=== PATIENT | female | born 1940 | race Caucasian/White ===

== ENCOUNTER 2019-02-07 23:45 | Inpatient (IN) | payer MEDICARE, MEDICAID ==
[~2019-02-07] VITALS: Ht 172.7 cm; Wt 79.4 kg
[2019-02-07 23:50] VITALS: BP 106/59
[2019-02-07] MEDS ORDERED: SYNTHROID150 MCG ORAL (23:54)
[2019-02-07] MEDS ORDERED: AMANTADINE100 M2 ORAL (23:54)
[2019-02-07] MEDS ORDERED: ASPIRIN EC325 MG ORAL (23:54)
[2019-02-07] MEDS ORDERED: IPRATROPIUM BROM5 GM MC (23:54)
[2019-02-07] MEDS ORDERED: CRANBERRY450 M4 PO (23:54)
[2019-02-07] MEDS ORDERED: LOVENOX10 M4 SUBQ (23:54)
[2019-02-07] MEDS ORDERED: ONDANSETRON ODT4 MG BC (23:54)
[2019-02-07] MEDS ORDERED: DEPAKOTE125 MG PO (23:54)
[2019-02-07] MEDS ORDERED: ATORVASTATIN CA10 MG ORAL (23:54)
[2019-02-07] MEDS ORDERED: ROBITUSSIN100 MG/52 ORAL (23:54)
[2019-02-07] MEDS ORDERED: CATAPRES0.1 MG ORAL (23:54)
[2019-02-07] MEDS ORDERED: NITROSTAT0.4 M2 SL (23:54)
[2019-02-07] MEDS ORDERED: PEPCID AC20 M2 PO (23:54)
[2019-02-07] MEDS ORDERED: COLACE100 MG ORAL (23:54)
[2019-02-07] MEDS ORDERED: FLEET ENEMA133 ML RECTAL (23:54)
[2019-02-07] MEDS ORDERED: VITAMIN D35000 UNIT PO (23:54)
[2019-02-07] MEDS ORDERED: TYLENOL EXTRA500 MG ORAL (23:54)
[2019-02-07] MEDS ORDERED: ZYPREXA10 MG ORAL (23:54)
[2019-02-07] MEDS ORDERED: DULCOLAX10 MG RC (23:54)
[2019-02-07] MEDS ORDERED: MILK OF MA400 MG/51 ORAL (23:54)
[2019-02-07 23:59] LABS: BASOPHILS % (AUTO) 1.1 % (0.0-2.0); EOSINOPHILS % (AUTO) 1.9 % (0.0-3.0); HEMOGLOBIN 11.9 G/DL (12.0-16.0); LYMPHOCYTES % (AUTO) 29.1 % (20.0-45.0); MEAN CORPUSCULAR VOLUME 93 FL (80-99); MONOCYTES % (AUTO) 6.7 % (1.0-10.0); NEUTROPHILS % (AUTO) 61.2 % (45.0-75.0); PLATELET COUNT 221 K/UL (150-450); RED BLOOD COUNT 3.76 M/UL (4.20-5.40); RED CELL DISTRIBUTION WIDTH 12.1 % (11.6-14.8); WHITE BLOOD COUNT 7.7 K/UL (4.8-10.8)
[2019-02-08] MEDS ORDERED: DiphenhydrAMINE 50mg/ml Inj IVP ONE
[2019-02-08 00:13] LABS: ANION GAP 6 mmol/L (5-15); BLOOD UREA NITROGEN 14 mg/dL (7-18); CALCIUM 8.4 MG/DL (8.5-10.1); CARBON DIOXIDE 30 MMOL/L (21-32); CHLORIDE 92 MMOL/L (98-107); POTASSIUM 4.2 MMOL/L (3.5-5.1); SODIUM 128 MMOL/L (136-145)
[2019-02-08] MEDS: Albuterol ud Inhalation HHN SCH ×2 (00:15→00:16)
[2019-02-08] MEDS ORDERED: LORazepam Inj 2mg/ml 1ml IV ONE (00:15)
[2019-02-08] MEDS: Ipratropium 0.02% Inh Soln 2.5ml UD HHN SCH ×2 (00:15→00:16)
[2019-02-08 00:28] LABS: ALANINE AMINOTRANSFERASE 61 U/L (12-78); ALBUMIN/GLOBULIN RATIO 1.3 (1.0-2.7); ALKALINE PHOSPHATASE 54 U/L (46-116); ASPARTATE AMINO TRANSFERASE 58 U/L (15-37); BILIRUBIN,TOTAL 0.8 MG/DL (0.2-1.0); CKMB 23.8 NG/ML (0.0-3.6); CREATINE KINASE 963 U/L (26-308)
[2019-02-08 00:29] LABS: APPEARANCE,URINE CLEAR; BILIRUBIN, URINE NEGATIVE (NEGATIVE); GLUCOSE, URINE (UA) NEGATIVE (NEGATIVE); KETONES,URINE NEGATIVE (NEGATIVE); LEUKOCYTE ESTERASE ,URINE NEGATIVE (NEGATIVE); NITRITE,URINE NEGATIVE (NEGATIVE); PH,URINE 6 (4.5-8.0); PROTEIN,URINE 3+ (NEGATIVE); UROBILINOGEN,URINE NORMAL MG/DL (0.0-1.0)
[2019-02-08 00:30] LABS: COLOR,URINE YELLOW
--- NOTE | 2019-02-08 00:31 | Emergency Room Report ---
History of Present Illness General Chief Complaint: Dyspnea/Respdistress Source: Medical Record Present Illness HPI 78-year-old female presents with acute shortness of breath just prior to arrival , patient was seen at the group home yelling I cannot breathe I cannot breathe , she has a history of COPD, history is limited due to patient's acute shortness of breath, patient is not answering questions, unknown aggravating or alleviating factors, severity is severe, onset was just prior to arrival. Allergies: Coded Allergies: LITHIUM (Verified Allergy, Unknown, 02/07/19) Patient History Limited by: medical condition - Acute shortness of breath Past Medical History: see triage record Last Menstrual Period: n/a Reviewed Nursing Documentation: PMH: Agreed; PSxH: Agreed Nursing Documentation-PMH Past Medical History: No History, Except For Hx Cardiac Problems: Yes - Hyperlipidemia, Hypothyroidism, Parkinson'sm Hypocalcemia, Hx COPD: Yes - COPD Hx Gastrointestinal Problems: Yes - GeRD Review of Systems All Other Systems: limited - Acute shortness of breath Physical Exam Vital Signs Date Time Temp Pulse Resp B/P (MAP) Pulse Ox O2 Delivery O2 Flow Rate FiO2 02/07/19 23:37 97.7 52 18 106/59 (75) 95 Room Air 02/07/19 23:56 4.0 36 Sp02 EP Interpretation: reviewed, normal General Appearance: alert, moderate distress Head: normocephalic, atraumatic Eyes: bilateral eye PERRL, bilateral eye EOMI ENT: uvula midline, moist mucus membranes Neck: supple, thyroid normal, supple/symm/no masses Respiratory: respiratory distress, decreased breath sounds, accessory muscle use, wheezing Cardiovascular #1: normal peripheral pulses, regular rate, rhythm, no edema, no gallop, no murmur Gastrointestinal: non tender, soft, no guarding, no rebound Musculoskeletal: normal inspection Neurologic: alert, responsive Psychiatric: mood/affect normal Skin: no rash, warm/dry Procedures Critical Care Time Critical Care Time Given the critical condition in which the patient arrived, the patient was immediately assessed by myself and the nurse, and cardiac monitoring initiated due to the potential for rapid decompensation of the patient's clinical condition. During the course of the patient's stay, I spent a considerable amount of time at the bedside performing serial re-evaluations of the patient's hemodynamic and clinical status because of the recognized potential threat to life or limb in this condition. I then had a chance to review not only all of the available current laboratory and radiographic studies obtained today, but I also reviewed old records available to me at the time. Additionally, any ancillary information available including assurance associate records were reviewed. Sequential vital signs were obtained. Critical Care time of 39 minutes was performed exclusive of billable procedures. Medical Decision Making Diagnostic Impression: Primary Impression: Respiratory distress Additional Impressions: Pneumonia Qualified Codes: J18.1 - Lobar pneumonia, unspecified organism COPD exacerbation ER Course 78-year-old female presented with acute shortness of breath, concerning for ACS versus sepsis versus pneumonia Versus COPD exacerbation Patient given duo nebs emergently, patient felt better with DuoNeb's, labs drawn , a box given for possible sepsis, patient found to have bilateral pneumonia Patient given steroids Reevaluation 12:56 AM, patient more comfortable Admitted to Dr. Gramajo at 1:08AM Laboratory Tests Test 02/07/19 23:48 02/08/19 00:15 02/08/19 01:00 White Blood Count 7.7 K/UL (4.8-10.8) Red Blood Count 3.76 M/UL (4.20-5.40) L Hemoglobin 11.9 G/DL (12.0-16.0) L Hematocrit 35.0 % (37.0-47.0) L Mean Corpuscular Volume 93 FL (80-99) Mean Corpuscular Hemoglobin 31.7 PG (27.0-31.0) H Mean Corpuscular Hemoglobin Concent 34.1 G/DL (32.0-36.0) Red Cell Distribution Width 12.1 % (11.6-14.8) Platelet Count 221 K/UL (150-450) Mean Platelet Volume 6.5 FL (6.5-10.1) Neutrophils (%) (Auto) 61.2 % (45.0-75.0) Lymphocytes (%) (Auto) 29.1 % (20.0-45.0) Monocytes (%) (Auto) 6.7 % (1.0-10.0) Eosinophils (%) (Auto) 1.9 % (0.0-3.0) Basophils (%) (Auto) 1.1 % (0.0-2.0) Prothrombin Time 10.6 SEC (9.30-11.50) Prothrombin Time INR 1.0 (0.9-1.1) PTT 32 SEC (23-33) Sodium Level 128 MMOL/L (136-145) L Potassium Level 4.2 MMOL/L (3.5-5.1) Chloride Level 92 MMOL/L (98-107) L Carbon Dioxide Level 30 MMOL/L (21-32) Anion Gap 6 mmol/L (5-15) Blood Urea Nitrogen 14 mg/dL (7-18) Creatinine 1.0 MG/DL (0.55-1.30) Estimate Glomerular Filtration Rate mL/min (>60) Glucose Level 109 MG/DL (74-106) H Lactic Acid Level 1.00 mmol/L (0.4-2.0) Calcium Level 8.4 MG/DL (8.5-10.1) L Total Bilirubin 0.8 MG/DL (0.2-1.0) Aspartate Amino Transferase (AST) 58 U/L (15-37) H Alanine Aminotransferase (ALT) 61 U/L (12-78) Alkaline Phosphatase 54 U/L (46-116) Total Creatine Kinase 963 U/L (26-308) H Creatine Kinase MB 23.8 NG/ML (0.0-3.6) H Creatine Kinase MB Relative Index 2.4 Troponin I 0.000 ng/mL (0.000-0.056) Pro-B-Type Natriuretic Peptide 2327 pg/mL (0-125) H Total Protein 7.0 G/DL (6.4-8.2) Albumin 4.0 G/DL (3.4-5.0) Globulin 3.0 g/dL Albumin/Globulin Ratio 1.3 (1.0-2.7) Lipase 131 U/L (73-393) Urine Color Yellow Urine Appearance Clear Urine pH 6 (4.5-8.0) Urine Specific [place] 1.020 (1.005-1.035) Urine Protein 3+ (NEGATIVE) H Urine Glucose (UA) Negative (NEGATIVE) Urine Ketones Negative (NEGATIVE) Urine Blood 2+ (NEGATIVE) H Urine Nitrite Negative (NEGATIVE) Urine Bilirubin Negative (NEGATIVE) Urine Urobilinogen Normal MG/DL (0.0-1.0) Urine Leukocyte Esterase Negative (NEGATIVE) Urine RBC 2-4 /HPF (0 - 2) H Urine WBC 0-2 /HPF (0 - 2) Urine Squamous Epithelial Cells Few /LPF (NONE/OCC) Urine Bacteria None /HPF (NONE) Arterial Blood pH 7.323 (7.350-7.450) Arterial Blood Partial Pressure CO2 52.2 mmHg (35.0-45.0) H Arterial Blood Partial Pressure O2 81.1 mmHg (75.0-100.0) Arterial Blood HCO3 26.5 mmol/L (22.0-26.0) H Arterial Blood Oxygen Saturation 94.6 % (95-100) L Arterial Blood Base Excess -0.2 (-2-2) Raphael Test Positive EKG Diagnostic Results EKG Time: 23:53 EP Interpretation: NSR, rate 63, QTc 460, no acute ST elevations, normal axis Rate: normal Rhythm: NSR ST Segments: no acute changes Rhythm Strip Diag. Results Rhythm Strip Time: 00:32 EP Interpretation: yes Rate: 70 Rhythm: NSR, no PVC's, no ectopy Chest X-Ray Diagnostic Results Chest X-Ray Diagnostic Results : Chest X-Ray Ordered: Yes # of Views/Limited/Complete: 1 View Indication: Shortness of Breath EP Interpretation: Yes Interpretation: other - Bilateral infiltrates seen Impression: Other - Bilateral lower lobe pneumonias Electronically Signed by: Mario Barnes MD Last Vital Signs Date Time Temp Pulse Resp B/P (MAP) Pulse Ox O2 Delivery O2 Flow Rate FiO2 02/08/19 00:17 77 18 100 02/08/19 00:07 Nasal Cannula 4.0 36 02/07/19 23:37 97.7 106/59 (75) Disposition: ADMITTED INPATIENT Condition: Serious Mario Barnes MD Feb 08, 2019 00:31
[2019-02-08] MEDS ORDERED: Vancomycin 1.5 GM in NS 275 ML IVPB ONE (00:45)
[2019-02-08] MEDS ORDERED: Cefepime HCl 2 GM in D5W 55 ML IVPB ONE (00:45)
[2019-02-08] MEDS ORDERED: Dexamethasone 4mg/ml vial IVP ONE (00:45)
[2019-02-08] MEDS ORDERED: Vancomycin 1.5gm/D5W Premix 275 ML IVPB ONE (00:45)
[2019-02-08 01:16] VITALS: BP 146/62
[2019-02-08 01:59] VITALS: BP 136/58
[2019-02-08 02:10] VITALS: BP 134/70
[2019-02-08] MEDS ORDERED: Acetaminophen 500mg (ES) tab ORAL PRN (03:15)
[2019-02-08] MEDS ORDERED: Nitroglycerin Subl 0.4mg tab SL PRN (03:15)
[2019-02-08] MEDS ORDERED: guaiFENesin 100mg/5ml Liq ud ORAL PRN (03:15)
[2019-02-08 04:00] VITALS: BP 127/53
[2019-02-08] MEDS: Albuterol/Ipratropium 3ml neb HHN SCH ×3 (07:53→19:53)
[2019-02-08 08:00] VITALS: BP 136/55
[2019-02-08] MEDS ORDERED: Docusate 100mg cap ORAL SCH (09:00)
[2019-02-08] MEDS ORDERED: Enoxaparin 40mg Inj SUBQ SCH (09:00)
[2019-02-08] MEDS ORDERED: Milk of Magnesia 30ml Ud ORAL SCH (09:00)
[2019-02-08] MEDS ORDERED: Aspirin EC 325mg tab ORAL SCH (09:00)
[2019-02-08] MEDS ORDERED: OLANZapine 10mg tab ORAL SCH (09:00)
[2019-02-08] MEDS ORDERED: cefTRIAXone 1 GM in D5W 55 ML IVPB SCH (09:00)
[2019-02-08] MEDS ORDERED: Fleet's Enema 133ml RECTAL PRN (09:00)
[2019-02-08] MEDS: Amantadine 100mg cap ORAL SCH ×2 (09:44→18:17)
[2019-02-08] MEDS: Heparin 5000 units/ml inj SUBQ SCH ×2 (09:46→20:54)
--- NOTE | 2019-02-08 12:19 | Diagnostic Imaging Report ---
Indication: Chest pain Technique: One view of the chest Comparison: none Findings: The heart is enlarged. There is mild bilateral interstitial edema. No focal airspace consolidation. The pleural spaces are grossly clear. The aorta is tortuous ectatic and calcified. Impression: Cardiomegaly. Mild bilateral interstitial edema
[2019-02-08] MEDS ORDERED: D5NS 1,000 ML IV SCH (19:45)
[2019-02-08 20:00] VITALS: BP 143/66
[2019-02-08] MEDS ORDERED: DIVALPROEX SOD125 MG PO (20:50)
[2019-02-08] MEDS ORDERED: DUONEB 0.5-3(2.53 ML HHN (20:50)
[2019-02-08] MEDS ORDERED: NITROSTAT0.4 M1 SL (20:51)
[2019-02-08] MEDS ORDERED: ZOFRAN4 M3 ORAL (20:51)
[2019-02-08] MEDS ORDERED: MYLANTA PO (20:51)
[2019-02-08] MEDS ORDERED: Solu-MEDROL 125mg Inj IVP SCH (23:45)
--- NOTE | 2019-02-08 23:47 | History & Physical ---
History and Physical History & Physicial H&P dictated Matt Gramajo MD Feb 08, 2019 23:47
[2019-02-09] VITALS: BP 128/52
[2019-02-09] MEDS ORDERED: D5NS 1,000 ML IV SCH ×3 (00:30→19:45)
[2019-02-09] MEDS ORDERED: Nitroglycerin Subl 0.4mg tab SL PRN (01:15)
[2019-02-09] MEDS: D5NS 1,000 ML IV SCH ×2 (01:15→17:40)
--- NOTE | 2019-02-09 01:15 | History and Physical Report ---
DATE OF ADMISSION: 02/08/2019 CHIEF COMPLAINT: Patient with acute onset of shortness of breath. HISTORY OF PRESENT ILLNESS: History obtained from the chart. The patient is a poor historian. She has multiple medical problems and not a reliable patient due to a history of schizophrenia. She does have history of COPD and presented with complaint of acute shortness of breath. She was taken to emergency room and in the ER, she was given Lasix 40 mg IV and subsequently she felt better. No complaint of any chest pain and her cardiac enzymes were unremarkable. She did have a moderately elevated BNP. She has had occasional cough, which has been mostly productive and she has been on Rocephin since admission. PAST MEDICAL HISTORY: Significant for COPD, hypertension, Parkinson disease, cachexia, hyperlipidemia, gastroesophageal reflux disease, hypothyroidism, anemia, and schizophrenia. SOCIAL HISTORY: sn[facility] resident. Unemployed. ALLERGIES: No known drug allergies. MEDICATIONS: The patient is on the following medications. Atorvastatin 10 mg p.o. daily, amantadine 100 mg p.o. daily, aspirin 325 p.o. daily, Colace 100 mg p.o. daily, Pepcid 20 mg p.o. daily, milk of magnesia p.r.n., olanzapine 10 mg p.o. daily, and heparin 5000 units subcutaneous every 12 hours, which was started following admission. The patient is also on albuterol Atrovent every 6 hours since admission, Synthroid 150 mcg p.o. mouth daily, Dulcolax 10 mg p.o. daily p.r.n. constipation, clonidine 0.1 mg p.o. q.6 hours hours, Tylenol p.r.n., nitroglycerin p.r.n., Robitussin p.r.n., and Zofran p.r.n. She also was given vancomycin and cefepime in the emergency room and steroid, Decadron. FAMILY HISTORY: Noncontributory. REVIEW OF SYSTEMS: Limited, cannot be obtained given the patient's condition. PHYSICAL EXAMINATION: GENERAL: Obese female, in no acute distress. VITAL SIGNS: Temperature 97.7, pulse of 65, respiratory rate of 20, blood pressure 143/66, O2 saturation 99%. HEENT: Pupils equal, round, reactive. Conjunctivae clear. Oropharynx, posterior pharynx crowded. NECK: No JVD. Trachea midline. No thyromegaly. LYMPHATICS: No adenopathy. LUNGS: Rhonchi bilateral. Decreased breath sounds. No wheezing. CARDIOVASCULAR: Regular rate. S1, S2. ABDOMEN: Soft. Bowel sounds present. Cannot tell if she has any organomegaly given her obesity. EXTREMITIES: No edema, clubbing, or cyanosis. NEUROLOGIC: Alert. Normal speech. Follows commands. Cranial nerves II to XII grossly intact. Ambulation not tested, but from her history she has ataxia. Could not elicit reflex. RECTAL: Deferred. GENITAL: Deferred. SKIN: Intact. LABORATORY DATA: She has the following findings. Her UA is unremarkable. Her blood gas shows pH of 7.32, pCO2 of 52, pO2 of 51. Coags unremarkable. CBC shows WBC of 7.7, hemoglobin 11.9, platelet count of 221. On her chemistry, sodium is 128, potassium 4.2, chloride 92, bicarb of 30, BUN of 14, creatinine 1.0, glucose 109. Lactic acid 1. Calcium 8.4. AST is slightly elevated at 58, ALT of 61, alkaline phosphatase 54. CPK is 963, CK-MB of 23. Troponin was 0. BNP 2327. Albumin is 4, protein 7, and lipase 131. On her chest x-ray, it showed cardiomegaly, mild bibasilar interstitial edema. IMPRESSION: 1. Acute shortness of breath secondary to pulmonary edema. 2. COPD exacerbation. 3. Acute tracheobronchitis. 4. Hyponatremia. 5. Parkinson disease. 6. Hyperlipidemia. 7. Gastroesophageal reflux disease. 8. Hypothyroidism. 9. Mild anemia of chronic disease. 10. Schizophrenia. PLAN: The patient will be on Rocephin. We will diurese her and we will repeat her labs. She will be on bronchodilator and steroid and we will follow her labs and repeat chest x-ray. Matt Gramajo M.D. DR: MEGAN JOB#: [id number] CC:
[2019-02-09] MEDS ORDERED: guaiFENesin 100mg/5ml Liq ud ORAL PRN (03:15)
[2019-02-09] MEDS ORDERED: Acetaminophen 500mg (ES) tab ORAL PRN (03:15)
[2019-02-09 04:00] VITALS: BP 121/60
[2019-02-09] MEDS: Solu-MEDROL 125mg Inj IVP SCH ×3 (06:00→22:00)
[2019-02-09 06:36] LABS: HEMATOCRIT 41.1 % (37.0-47.0); HEMOGLOBIN 13.4 G/DL (12.0-16.0); MEAN CORPUSCULAR VOLUME 95 FL (80-99); PLATELET COUNT 206 K/UL (150-450); RED CELL DISTRIBUTION WIDTH 12.4 % (11.6-14.8); WHITE BLOOD COUNT 6.8 K/UL (4.8-10.8)
[2019-02-09 06:55] LABS: CREATINE KINASE 801 U/L (26-308)
[2019-02-09 06:56] LABS: ALANINE AMINOTRANSFERASE 51 U/L (12-78); ALBUMIN 3.8 G/DL (3.4-5.0); ALBUMIN/GLOBULIN RATIO 1.1 (1.0-2.7); ALKALINE PHOSPHATASE 54 U/L (46-116); ANION GAP 5 mmol/L (5-15); ASPARTATE AMINO TRANSFERASE 46 U/L (15-37); BILIRUBIN,TOTAL 0.6 MG/DL (0.2-1.0); BLOOD UREA NITROGEN 13 mg/dL (7-18); CALCIUM 8.6 MG/DL (8.5-10.1); CARBON DIOXIDE 32 MMOL/L (21-32); CHLORIDE 94 MMOL/L (98-107); CREATININE 1.1 MG/DL (0.55-1.30); POTASSIUM 4.2 MMOL/L (3.5-5.1); SODIUM 131 MMOL/L (136-145)
[2019-02-09] MEDS: Albuterol/Ipratropium 3ml neb HHN SCH ×3 (08:02→19:18)
[2019-02-09] MEDS ORDERED: cefTRIAXone 1 GM in D5W 55 ML IVPB SCH (09:00)
[2019-02-09] MEDS ORDERED: OLANZapine 10mg tab ORAL SCH (09:00)
[2019-02-09] MEDS: Milk of Magnesia 30ml Ud ORAL SCH (09:00)
[2019-02-09] MEDS ORDERED: Fleet's Enema 133ml RECTAL PRN (09:00)
[2019-02-09] MEDS: Aspirin EC 325mg tab ORAL SCH (09:00)
[2019-02-09] MEDS: Amantadine 100mg cap ORAL SCH ×2 (09:00→17:41)
[2019-02-09] MEDS: Heparin 5000 units/ml inj SUBQ SCH ×2 (09:00→21:00)
[2019-02-09] MEDS: Docusate 100mg cap ORAL SCH (09:00)
--- NOTE | 2019-02-09 13:36 | Diagnostic Imaging Report ---
Indication: Dyspnea Comparison: 02/07/2019 A single view chest radiograph was obtained. Findings: Prominent pulmonary vascularity and heart size are demonstrated. The interstitium is prominent but unchanged. Bones are unremarkable. IMPRESSION: Suspected mild CHF without change. Correlate clinically
[2019-02-09] MEDS ORDERED: Tubing IV Secondary IV ONE (18:37)
[2019-02-09] MEDS ORDERED: NS 275ml ONE (18:37)
[2019-02-09 20:00] VITALS: BP 123/50
[2019-02-09] MEDS ORDERED: OLANZapine 2.5mg tab ORAL SCH (21:00)
--- NOTE | 2019-02-09 22:38 | General Progress Note ---
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 Pulled her IV out and refuses meds. Psychiatry was consulted. Patient refuses PO. Will notify Dr. Hernandez. Assessment/Plan: Will change to po steroid. Subjective Date patient seen: Feb 09, 2019 ROS Limited/Unobtainable: Yes Constitutional: Reports: no symptoms HEENT: Reports: no symptoms Cardiovascular: Reports: no symptoms Respiratory: Reports: no symptoms Gastrointestinal/Abdominal: Reports: no symptoms Genitourinary: Reports: no symptoms Neurologic/Psychiatric: Reports: anxiety, emotional problems Endocrine: Reports: no symptoms Hematologic/Lymphatic: Reports: no symptoms Allergies: Coded Allergies: LITHIUM (Verified Allergy, Unknown, 02/07/19) Objective Last 24 Hour Vital Signs Date Time Temp Pulse Resp B/P (MAP) Pulse Ox O2 Delivery O2 Flow Rate FiO2 02/09/19 21:00 Nasal Cannula 1.0 Nasal Cannula 1.0 02/09/19 20:00 98.2 72 18 123/50 (74) 99 02/09/19 19:28 70 18 98 Room Air 21 68 18 94 02/09/19 19:17 94 Room Air 21 02/09/19 09:00 Nasal Cannula 1.0 Nasal Cannula 1.0 02/09/19 08:03 64 20 88 Room Air 21 8/30/19 08:02 88 Room Air 21 02/09/19 06:00 121/60 02/09/19 04:00 56 02/09/19 04:00 97.6 58 18 121/60 (80) 96 02/09/19 00:00 63 02/09/19 00:00 Nasal Cannula 1.0 Nasal Cannula 1.0 02/09/19 00:00 128/52 02/09/19 00:00 96.3 67 20 128/52 (77) 96 Intake and Output 02/08/19 02/09/19 19:00 07:00 Intake Total 413.333 ml Output Total 800 ml Balance -800 ml 413.333 ml Intake IV Total 413.333 ml Output Urine Total 800 ml # Voids 1 Laboratory Tests 02/09/19 05:20: White Blood Count 6.8, Red Blood Count 4.30, Hemoglobin 13.4, Hematocrit 41.1, Mean Corpuscular Volume 95, Mean Corpuscular Hemoglobin 31.1H, Mean Corpuscular Hemoglobin Concent 32.6, Red Cell Distribution Width 12.4, Platelet Count 206, Mean Platelet Volume 6.5, Neutrophils (%) (Auto) , Lymphocytes (%) (Auto) , Monocytes (%) (Auto) , Eosinophils (%) (Auto) , Basophils (%) (Auto) , Differential Total Cells Counted 100, Neutrophils % (Manual) 87H, Lymphocytes % (Manual) 11L, Monocytes % (Manual) 2, Eosinophils % (Manual) 0, Basophils % ( Manual) 0, Band Neutrophils 0, Platelet Estimate Adequate, Platelet Morphology Normal, Red Blood Cell Morphology Normal, Sodium Level 131L, Potassium Level 4.2 , Chloride Level 94L, Carbon Dioxide Level 32, Anion Gap 5, Blood Urea Nitrogen 13, Creatinine 1.1, Estimat Glomerular Filtration Rate , Glucose Level 124H, Calcium Level 8.6, Magnesium Level 2.2, Total Bilirubin 0.6, Aspartate Amino Transf (AST/SGOT) 46H, Alanine Aminotransferase (ALT/SGPT) 51, Alkaline Phosphatase 54, Total Creatine Kinase 801H, Pro-B-Type Natriuretic Peptide 1075H , Total Protein 7.4, Albumin 3.8, Globulin 3.6, Albumin/Globulin Ratio 1.1, Free Thyroxine < 0.10L Height (Feet): 5 Height (Inches): 8.00 Weight (Pounds): 175 General Appearance: alert, agitated EENT: PERRL/EOMI Neck: non-tender Cardiovascular: normal peripheral pulses Respiratory/Chest: chest wall non-tender, rhonchi - bilaterally Abdomen: normal bowel sounds, non tender Pelvis: normal external exam Genitourinary/Rectal: normal genital exam Extremities: normal range of motion Edema: trace edema Neurologic: inventory assistant II-XII grossly normal, no motor/sensory deficits, responsive Skin: normal pigmentation Lymphatic: normal anterior cervical (L), normal anterior cervical (R), normal posterior cervical (L), normal posterior cervical (R) Matt Gramajo MD Feb 09, 2019 22:38
[2019-02-09] MEDS: Haloperidol 5mg/ml Inj IM PRN (22:41)
[2019-02-09] MEDS: LORazepam Inj 2mg/ml 1ml IM PRN ×2 (22:42→22:44)
[2019-02-09] MEDS: DiphenhydrAMINE 50mg/ml Inj IM PRN ×2 (22:42→22:44)
[2019-02-10] VITALS: BP 128/50
[2019-02-10] MEDS ORDERED: Lidocaine 1% MPF 10mg/ml 5ml ONE
--- NOTE | 2019-02-10 00:15 | Consultation ---
DATE OF CONSULTATION: 02/09/2019 CONSULTING PHYSICIAN: Kiana Hernandez M.D. HISTORY OF PRESENT ILLNESS: The patient is a 78-year-old female with a history of multiple medical comorbidities including COPD, Parkinson disease, hyperlipidemia, GERD, hypothyroidism, and schizophrenia who has been admitted to the hospital for shortness of breath. The patient has been delusional, responding to internal stimuli. The patient is unable to understand, process, communicate, or appreciate the information given to her. The patient is a poor historian. The patient is agitated and refuses to take all her medications. She is refusing to wear her oxygen mask. The patient's mood is labile and attempted to leave in the morning. The patient is confused and disoriented. Unable to provide any history. PAST PSYCHIATRIC HISTORY: Significant for schizophrenia and dementia. PAST MEDICAL HISTORY: 1. COPD. 2. Hypertension. 3. Parkinson disease. 4. Cachexia. 5. Hyperlipidemia. 6. GERD. 7. Hypothyroidism. 8. Anemia. ALLERGIES:NKDA SUBSTANCE ABUSE HISTORY: No known history of illicit drug use or alcohol. MENTAL STATUS EXAMINATION: The patient is alert and oriented times self. She knows she is in the hospital. Mood is agitated. Affect is flat. Thought process, there is a paucity of thought content. Thought content, no suicidal or homicidal ideation. Cognition is impaired. Insight and judgment is impaired. ASSESSMENT: [place] I Schizophrenia. [place] II Deferred. [place] III As above. [place] IV Low. [place] V 20. PLAN: 1. We will change the Zyprexa to 5 mg at bedtime. Discontinue the day time Zyprexa 10 mg. 2. We will give the patient 2.5 mg of Zyprexa in the morning. The patient lacks capacity to make decision. Medication could be given to her in applesauce. The patient may not refuse medication as she lacks capacity to refuse medications or care. Kiana Hernandez M.D. DR: BRIDGER JOB#: [id number] CC: [place]
[2019-02-10] MEDS: Albuterol/Ipratropium 3ml neb HHN SCH ×4 (01:18→19:45)
[2019-02-10 04:00] VITALS: BP 122/61
[2019-02-10 08:00] VITALS: BP 141/51
[2019-02-10] MEDS: Heparin 5000 units/ml inj SUBQ SCH ×2 (09:00→21:00)
[2019-02-10] MEDS: Aspirin EC 325mg tab ORAL SCH (09:36)
[2019-02-10] MEDS: Docusate 100mg cap ORAL SCH (09:36)
[2019-02-10] MEDS: Milk of Magnesia 30ml Ud ORAL SCH (09:36)
[2019-02-10] MEDS: Amantadine 100mg cap ORAL SCH ×3 (09:37→17:52)
[2019-02-10] MEDS: OLANZapine 10mg tab ORAL SCH (09:37)
[2019-02-10 12:00] VITALS: BP 135/53
[2019-02-10 20:00] VITALS: BP 138/56
[2019-02-10] MEDS: OLANZapine 2.5mg tab ORAL SCH (20:40)
[2019-02-11] VITALS: BP 144/68
[2019-02-11] MEDS: Lidocaine 1% MPF 10mg/ml 5ml IM SCH (00:21)
[2019-02-11] MEDS: Albuterol/Ipratropium 3ml neb HHN SCH ×4 (01:17→20:11)
[2019-02-11 04:00] VITALS: BP 139/64
[2019-02-11 08:00] VITALS: BP 142/72
[2019-02-11] MEDS: Heparin 5000 units/ml inj SUBQ SCH ×3 (08:52→20:51)
[2019-02-11] MEDS: Docusate 100mg cap ORAL SCH (08:52)
[2019-02-11] MEDS: Milk of Magnesia 30ml Ud ORAL SCH (08:53)
[2019-02-11] MEDS: Aspirin EC 325mg tab ORAL SCH (09:00)
[2019-02-11] MEDS: OLANZapine 10mg tab ORAL SCH (09:00)
[2019-02-11] MEDS: Amantadine 100mg cap ORAL SCH ×3 (09:00→17:16)
--- NOTE | 2019-02-11 10:33 | General Progress Note ---
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 Plan for discharge if respiration stable. Will check O2 sat on RA. Patient has significant psychosis and refuses meds frequently. Assessment/Plan: Will change to po steroid. Subjective Date patient seen: Feb 10, 2019 Time patient seen: 19:05 ROS Limited/Unobtainable: No Constitutional: Reports: no symptoms HEENT: Reports: no symptoms Cardiovascular: Reports: no symptoms Respiratory: Reports: cough, SOB with excertion Gastrointestinal/Abdominal: Reports: no symptoms Genitourinary: Reports: no symptoms Neurologic/Psychiatric: Reports: anxiety, pre-existing deficit, other - Psychosis Endocrine: Reports: no symptoms Hematologic/Lymphatic: Reports: no symptoms Allergies: Coded Allergies: LITHIUM (Verified Allergy, Unknown, 02/07/19) Objective Last 24 Hour Vital Signs Date Time Temp Pulse Resp B/P (MAP) Pulse Ox O2 Delivery O2 Flow Rate FiO2 02/11/19 09:00 Nasal Cannula 1.0 Nasal Cannula 1.0 02/11/19 08:00 98.2 82 18 142/72 (95) 95 02/11/19 06:48 94 Room Air 21 02/11/19 04:00 98.1 74 18 139/64 (89) 96 02/11/19 01:18 52 20 98 Room Air 21 57 20 92 02/11/19 00:00 98.0 64 18 144/68 (93) 96 02/10/19 21:00 Nasal Cannula 1.0 Nasal Cannula 1.0 02/10/19 20:00 98.2 72 20 138/56 (83) 95 02/10/19 19:45 93 Room Air 21 02/10/19 16:00 99.0 20 95 02/10/19 13:16 75 20 99 Nasal Cannula 2.0 28 77 20 97 02/10/19 12:00 98.0 64 18 135/53 (80) 97 Intake and Output 02/10/19 02/11/19 19:00 07:00 Intake Total 2000 ml 900 ml Balance 2000 ml 900 ml Intake Oral 2000 ml 900 ml # Voids 5 4 # Bowel Movements 1 Height (Feet): 5 Height (Inches): 8.00 Weight (Pounds): 175 General Appearance: WD/WN, no apparent distress EENT: PERRL/EOMI Neck: non-tender Cardiovascular: normal peripheral pulses Respiratory/Chest: chest wall non-tender, decreased breath sounds, rhonchi - bilaterally Abdomen: normal bowel sounds, non tender Extremities: non-tender, normal inspection Edema: no edema noted Arm (L), no edema noted Arm (R), no edema noted Leg (L), no edema noted Leg (R), no edema noted Pedal (L), no edema noted Pedal (R), no edema noted Generalized Neurologic: dice spotter II-XII grossly normal, no motor/sensory deficits, alert, responsive, disoriented, depressed affect Skin: normal pigmentation Lymphatic: normal anterior cervical (L), normal anterior cervical (R) Matt Gramajo MD Feb 11, 2019 10:33
[2019-02-11 13:23] LABS: BASOPHILS % (AUTO) 0.5 % (0.0-2.0); EOSINOPHILS % (AUTO) 1.4 % (0.0-3.0); HEMATOCRIT 35.7 % (37.0-47.0); HEMOGLOBIN 11.9 G/DL (12.0-16.0); LYMPHOCYTES % (AUTO) 25.7 % (20.0-45.0); MEAN CORPUSCULAR VOLUME 95 FL (80-99); MONOCYTES % (AUTO) 6.7 % (1.0-10.0); NEUTROPHILS % (AUTO) 65.8 % (45.0-75.0); PLATELET COUNT 261 K/UL (150-450); RED BLOOD COUNT 3.75 M/UL (4.20-5.40); RED CELL DISTRIBUTION WIDTH 12.8 % (11.6-14.8); WHITE BLOOD COUNT 8.5 K/UL (4.8-10.8)
[2019-02-11 13:48] LABS: ALANINE AMINOTRANSFERASE 56 U/L (12-78); ALBUMIN 3.9 G/DL (3.4-5.0); ALBUMIN/GLOBULIN RATIO 1.2 (1.0-2.7); ALKALINE PHOSPHATASE 50 U/L (46-116); ANION GAP 5 mmol/L (5-15); ASPARTATE AMINO TRANSFERASE 61 U/L (15-37); BILIRUBIN,TOTAL 0.4 MG/DL (0.2-1.0); BLOOD UREA NITROGEN 18 mg/dL (7-18); CARBON DIOXIDE 31 MMOL/L (21-32); CHLORIDE 99 MMOL/L (98-107); CREATININE 1.2 MG/DL (0.55-1.30); POTASSIUM 3.9 MMOL/L (3.5-5.1); SODIUM 135 MMOL/L (136-145)
--- NOTE | 2019-02-11 17:20 | General Progress Note ---
Assessment/Plan Problem List: (1) COPD exacerbation ICD Codes: J44.1 - Chronic obstructive pulmonary disease with (acute) exacerbation SNOMED: 770710053 (2) Anemia ICD Codes: D64.9 - Anemia, unspecified SNOMED: 805990142 Qualifiers: Qualified Codes: D64.9 - Anemia, unspecified (3) Diabetes 1.5, managed as type 2 ICD Codes: E13.9 - Other specified diabetes mellitus without complications SNOMED: 665229590 (4) Parkinson disease ICD Codes: G20 - Parkinson's disease SNOMED: 78396105 (5) Hyponatremia ICD Codes: E87.1 - Hypo-osmolality and hyponatremia SNOMED: 71552610 (6) Hyperlipidemia ICD Codes: E78.5 - Hyperlipidemia, unspecified SNOMED: 48875760 (7) Schizophrenia ICD Codes: F20.9 - Schizophrenia, unspecified SNOMED: 02030399 (8) Hypertension ICD Codes: I10 - Essential (primary) hypertension SNOMED: 44295858 Status: doing well, stable Status Narrative Psychotic, refuses meds. No arrythmai, can go to med/surg Assessment/Plan: Will change to po steroid. Subjective Date patient seen: Feb 11, 2019 ROS Limited/Unobtainable: No Constitutional: Reports: no symptoms HEENT: Reports: no symptoms Cardiovascular: Reports: no symptoms Respiratory: Reports: SOB with excertion Gastrointestinal/Abdominal: Reports: no symptoms Genitourinary: Reports: no symptoms Neurologic/Psychiatric: Reports: anxiety, emotional problems, pre-existing deficit, other - Psychosis, aggitated, doesn't follow command Allergies: Coded Allergies: LITHIUM (Verified Allergy, Unknown, 02/07/19) Objective Last 24 Hour Vital Signs Date Time Temp Pulse Resp B/P (MAP) Pulse Ox O2 Delivery O2 Flow Rate FiO2 02/11/19 09:00 Nasal Cannula 1.0 Nasal Cannula 1.0 02/11/19 08:00 98.2 82 18 142/72 (95) 95 02/11/19 06:48 94 Room Air 21 02/11/19 04:00 98.1 74 18 139/64 (89) 96 02/11/19 01:18 52 20 98 Room Air 21 57 20 92 02/11/19 00:00 98.0 64 18 144/68 (93) 96 02/10/19 21:00 Nasal Cannula 1.0 Nasal Cannula 1.0 02/10/19 20:00 98.2 72 20 138/56 (83) 95 02/10/19 19:45 93 Room Air 21 Intake and Output 02/10/19 02/11/19 18:59 06:59 Intake Total 2000 ml 900 ml Balance 2000 ml 900 ml Intake Oral 2000 ml 900 ml # Voids 5 4 # Bowel Movements 1 Laboratory Tests 02/11/19 13:08: White Blood Count 8.5, Red Blood Count 3.75L, Hemoglobin 11.9L, Hematocrit 35.7L , Mean Corpuscular Volume 95, Mean Corpuscular Hemoglobin 31.8H, Mean Corpuscular Hemoglobin Concent 33.4, Red Cell Distribution Width 12.8, Platelet Count 261, Mean Platelet Volume 5.5L, Neutrophils (%) (Auto) 65.8, Lymphocytes ( %) (Auto) 25.7, Monocytes (%) (Auto) 6.7, Eosinophils (%) (Auto) 1.4, Basophils (%) (Auto) 0.5, Sodium Level 135L, Potassium Level 3.9, Chloride Level 99, Carbon Dioxide Level 31, Anion Gap 5, Blood Urea Nitrogen 18, Creatinine 1.2, Estimat Glomerular Filtration Rate , Glucose Level 105, Calcium Level 9.0, Total Bilirubin 0.4, Aspartate Amino Transf (AST/SGOT) 61H, Alanine Aminotransferase (ALT/SGPT) 56, Alkaline Phosphatase 50, Total Protein 7.2, Albumin 3.9, Globulin 3.3, Albumin/Globulin Ratio 1.2 Height (Feet): 5 Height (Inches): 8.00 Weight (Pounds): 175 General Appearance: no apparent distress EENT: PERRL/EOMI Neck: non-tender Cardiovascular: normal rate, regular rhythm, no gallop/murmur Respiratory/Chest: chest wall non-tender, decreased breath sounds Abdomen: normal bowel sounds, non tender Extremities: normal range of motion Edema: no edema noted Arm (L), no edema noted Arm (R), no edema noted Leg (L), no edema noted Leg (R), no edema noted Pedal (L), no edema noted Pedal (R), no edema noted Generalized 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
[2019-02-11 20:00] VITALS: BP 122/68
[2019-02-11] MEDS: OLANZapine 2.5mg tab ORAL SCH ×2 (20:44→20:51)
[2019-02-12] VITALS: BP 155/68
[2019-02-12] MEDS: Haloperidol 5mg/ml Inj IM PRN (00:39)
[2019-02-12] MEDS: DiphenhydrAMINE 50mg/ml Inj IM PRN (00:39)
[2019-02-12] MEDS: Lidocaine 1% MPF 10mg/ml 5ml IM SCH (00:40)
[2019-02-12] MEDS: Albuterol/Ipratropium 3ml neb HHN SCH ×4 (01:00→19:00)
[2019-02-12 04:00] VITALS: BP 144/53
[2019-02-12 08:00] VITALS: BP 112/59
[2019-02-12] MEDS: Aspirin EC 325mg tab ORAL SCH (09:00)
[2019-02-12] MEDS: Docusate 100mg cap ORAL SCH (09:00)
[2019-02-12] MEDS: Milk of Magnesia 30ml Ud ORAL SCH (09:00)
[2019-02-12] MEDS: OLANZapine 10mg tab ORAL SCH (09:00)
[2019-02-12] MEDS: Heparin 5000 units/ml inj SUBQ SCH ×2 (09:00→21:00)
[2019-02-12] MEDS: Amantadine 100mg cap ORAL SCH ×2 (09:00→17:37)
[2019-02-12 12:00] VITALS: BP 120/61
[2019-02-12 20:00] VITALS: BP 128/53
[2019-02-12] MEDS: OLANZapine 2.5mg tab ORAL SCH (21:00)
[2019-02-13] VITALS: BP 135/58
[2019-02-13] MEDS: Lidocaine 1% MPF 10mg/ml 5ml IM SCH
[2019-02-13] MEDS: Albuterol/Ipratropium 3ml neb HHN SCH (01:00)
--- NOTE | 2019-02-13 02:18 | General Progress Note ---
Assessment/Plan Problem List: (1) COPD exacerbation ICD Codes: J44.1 - Chronic obstructive pulmonary disease with (acute) exacerbation SNOMED: 441285928 (2) Anemia ICD Codes: D64.9 - Anemia, unspecified SNOMED: 082899157 Qualifiers: Qualified Codes: D64.9 - Anemia, unspecified (3) Diabetes 1.5, managed as type 2 ICD Codes: E13.9 - Other specified diabetes mellitus without complications SNOMED: 478530754 (4) Parkinson disease ICD Codes: G20 - Parkinson's disease SNOMED: 91161511 (5) Hyponatremia ICD Codes: E87.1 - Hypo-osmolality and hyponatremia SNOMED: 03432968 (6) Hyperlipidemia ICD Codes: E78.5 - Hyperlipidemia, unspecified SNOMED: 93389232 (7) Schizophrenia ICD Codes: F20.9 - Schizophrenia, unspecified SNOMED: 14114846 (8) Hypertension ICD Codes: I10 - Essential (primary) hypertension SNOMED: 37540062 Status: doing well, stable Status Narrative Doing well and will make arrangement for discharge Assessment/Plan: Will change to po steroid. Subjective Date patient seen: Feb 12, 2019 Time patient seen: 14:00 ROS Limited/Unobtainable: No Constitutional: Reports: no symptoms HEENT: Reports: no symptoms Cardiovascular: Reports: no symptoms Respiratory: Reports: SOB with excertion Gastrointestinal/Abdominal: Reports: no symptoms Genitourinary: Reports: no symptoms Neurologic/Psychiatric: Reports: no symptoms, anxiety Endocrine: Reports: no symptoms Hematologic/Lymphatic: Reports: no symptoms Allergies: Coded Allergies: LITHIUM (Verified Allergy, Unknown, 02/07/19) Objective Last 24 Hour Vital Signs Date Time Temp Pulse Resp B/P (MAP) Pulse Ox O2 Delivery O2 Flow Rate FiO2 02/13/19 01:15 Room Air 21 02/13/19 00:00 97.4 19 135/58 (83) 95 02/12/19 21:00 Room Air 02/12/19 20:00 97.7 19 128/53 (78) 95 02/12/19 19:50 74 18 94 Room Air 21 02/12/19 19:49 94 Room Air 21 02/12/19 12:02 70 18 99 Room Air 21 72 18 95 02/12/19 12:00 98.4 68 18 120/61 (80) 95 02/12/19 09:00 Room Air 02/12/19 08:00 98.4 80 20 112/59 (76) 95 02/12/19 07:23 Room Air 02/12/19 07:23 Room Air 02/12/19 04:00 98.4 69 20 144/53 (83) 97 Intake and Output 02/12/19 02/13/19 18:59 06:59 Intake Total 1320 ml Balance 1320 ml Intake Oral 1320 ml # Voids 3 Height (Feet): 5 Height (Inches): 8.00 Weight (Pounds): 175 General Appearance: no apparent distress EENT: PERRL/EOMI Neck: non-tender Cardiovascular: normal peripheral pulses Respiratory/Chest: chest wall non-tender, rhonchi - bilaterally Abdomen: normal bowel sounds, non tender Extremities: normal range of motion 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
[2019-02-13] MEDS: Docusate 100mg cap ORAL SCH (08:13)
[2019-02-13] MEDS: Aspirin EC 325mg tab ORAL SCH (08:13)
[2019-02-13] MEDS: Milk of Magnesia 30ml Ud ORAL SCH (08:13)
[2019-02-13] MEDS: Heparin 5000 units/ml inj SUBQ SCH (08:14)
[2019-02-13] MEDS: OLANZapine 10mg tab ORAL SCH (08:14)
[2019-02-13] MEDS: Amantadine 100mg cap ORAL SCH (08:14)
[2019-02-13] MEDS ORDERED: Haloperidol Decanoate (Long Acting) 50mg Inj IM ONE (11:00)
[2019-02-13] MEDS ORDERED: ALBUTEROL2.5 MG/3 M INH (11:38)
[2019-02-13] MEDS ORDERED: PREDNISONE20 MG ORAL (11:38)
[2019-02-13] MEDS ORDERED: ADVAIR 250-501 EACH INH (11:38)
[2019-02-13] MEDS ORDERED: CEFUROXIME500 MG PO (11:39)
--- NOTE | 2019-02-13 14:00 | Discharge Summary ---
Discharge Summary Discharge Summary _ DATE OF ADMISSION: 02/08/2019 DATE OF DISCHARGE: 02/13/2019 DISCHARGED BY: Dr. Gramajo REASON FOR ADMISSION: 78 years old female, resident of [facility] facility, with past medical history of COPD, hypertension, Parkinson disease, hyperlipidemia, GERD, hypothyroidism, anemia, schizophrenia, was sent from the [facility] for evaluation due to acute shortness of breath. Patient by herself was a poor historian and unable to provide sufficient information. Upon evaluation patient was bradycardic with heart rate 52. Patient required supplemental oxygen and saturated 95% on 4 L of oxygen via nasal cannula. No fever. Laboratory work-up revealed no leukocytosis, hemoglobin 11.9, hematocrit 35. Platelet count 221. Sodium 128, BUN 14, creatinine 1.0. Lactic acid 1.0. AST 58, ALT 61. Troponin negative, pro BNP 2327. EKG revealed sinus rhythm, no acute ischemic changes. Chest x-ray demonstrated cardiomegaly, mild bilateral interstitial edema. In emergency department patient received DuoNeb via handheld nebulizer, antibiotic and IV steroid. Patient pancultured Patient received anxiolytic. Patient subsequently admitted to telemetry floor for further management. CONSULTANTS: psychiatrist [facility] COURSE: Patient admitted to telemetry floor. Supplemental oxygen provided as needed and to keep pulse oximetry above 92%. Patient started on diuresis with close monitoring of volumes and cardiorenal parameters. Patient also started on IV steroids with tapering down and switching to oral steroids. Supplemental oxygen titrated to keep pulse oximetry above 92%. Handheld nebulizing therapy with bronchodilator provided. Antitussive provided as needed. Patient was continued on empiric antibiotics. Blood cultures were negative. Follow-up chest x-ray revealed mild CHF without significant change. Pro BNP from 2327 down to 1075. Telemetry continued to show sinus rhythm; initial bradycardia resolved. Sodium up to 135 from initial 128 . SNF medication resumed. Psychiatrist followed. Psychiatric medication regimen optimized as per psychiatrist recommendation. Per psychiatrist, patient lacks capacity to refuse medication or care. DVT and GI prophylaxis provided. Levothyroxine continued.. Antiplatelet therapy with aspirin and statin continued. Blood pressure was managed with clonidine . Patient clinically stabilized and was ready for transfer back to nursing facility for continuation of care. FINAL DIAGNOSES: Acute shortness of breath likely secondary to pulmonary edema COPD exacerbation Acute tracheobronchitis Hyponatremia Diabetes mellitus type 2 Parkinson disease Schizophrenia Hypertension Hyperlipidemia Hypothyroidism Mild anemia of chronic disease GERD DISCHARGE MEDICATIONS: See Medication Reconciliation list. DISCHARGE INSTRUCTIONS: Patient was discharged to the [facility] facility. Follow up with medical doctor at the facility. I have been assigned to dictate discharge summary for this account. I was not involved in the patient's management. Sherry Degroot NP Feb 13, 2019 14:00
--- NOTE | 2019-02-14 03:15 | Progress Note ---
DATE: 02/13/2019 SUBJECTIVE: The patient was rather disorganized while walking around the nursing station, does not follow any question to staff's direction. The patient was delusional, responding to internal stimuli, and has been noncompliant with medications. The patient's family were contacted. The patient has poor insight. MENTAL STATUS EXAMINATION: Alert and oriented to times, self, and place. Mood is agitated. Affect is flat. Thought process, there is a paucity of thought content. Thought content, no suicidal or homicidal ideation. The patient is delusional. Insight and judgment, non-existent. ASSESSMENT: Schizophrenia. PLAN: 1. The patient received Haldol Decanoate shot. 2. Continue the Zyprexa. Kiana Hernandez M.D. DR: Key JOB#: [id number] CC:
== END 2019-02-13 12:00 | DRG 190 ==
LOC: EDBD 23:45 → EMR 23:59 → 2W 02-08 00:37 → EDBEDREQSVC 02-08 01:11 → EDBEDREQ 02-08 01:12 → 2E 02-09 01:10
DX: J44.0 Chronic obstructive pulmonary disease with (acute) lower respiratory infection (principal); J81.0 Acute pulmonary edema; J44.1 Chronic obstructive pulmonary disease with (acute) exacerbation; R06.02 Shortness of breath; F20.9 Schizophrenia, unspecified; G20 Parkinson's disease; I10 Essential (primary) hypertension; E78.5 Hyperlipidemia, unspecified; K21.9 Gastro-esophageal reflux disease without esophagitis; E03.9 Hypothyroidism, unspecified; Z79.82 Long term (current) use of aspirin; J20.9 Acute bronchitis, unspecified; D63.8 Anemia in other chronic diseases classified elsewhere; Z88.8 Allergy status to other drugs, medicaments and biological substances
CPT/HCPCS: 36415; 36600; 71045; 80053; 81003; 82550; 82553; 82803; 83605; 83690; 83735; 83880; 84439; 84484; 85007; 85025; 85610; 85730; 87040; 87081; 93005; 94640; 94664; 96365; 96366; 96368; 96375; 99291; J7620

== ENCOUNTER 2019-08-02 11:44 | Inpatient (IN) | payer MEDICARE, MEDICAID ==
[~2019-08-02] VITALS: Ht 167.6 cm; Wt 93.0 kg
[~2019-08-02 11:44] MED LIST: ACETAMINOPHEN120 MG RECTAL; ACETAMINOPHEN325 M1 ORAL; ACETAMINOPHEN500 MG ORAL; ADVAIR 250-501 EACH INH; ADVAIR 250/501 PUFFS INH; ALBUTEROL2.5 MG/3 M INH; AMANTADINE100 M2 ORAL; AMANTADINE50 MG/5 ML ORAL; ASPIRIN EC325 MG ORAL; ATORVASTATIN CA10 MG ORAL; ATORVASTATIN CA20 MG ORAL; CATAPRES0.1 MG ORAL; CEFUROXIME500 MG PO; CLONIDINE HCL0.1 MG PO; CLONIDINE0.1 MG PO; COLACE100 MG ORAL; CRANBERRY450 M4 PO; DEPAKOTE SPRIN125 MG PO; DEPAKOTE125 MG PO; DIVALPROEX SOD125 MG PO; DULCOLAX10 MG RC; DUONEB 0.5-3(2.53 ML HHN; FAMOTIDINE20 MG ORAL; FLEET ENEMA133 M1 RC; FLEET ENEMA133 ML RECTAL; FUROSEMIDE20 M1 ORAL; GUAIFENESI100 MG/5 M ORAL; IPRATROPIU0.2 MG/1 M HHN; IPRATROPIUM BROM5 GM MC; LEVOFLOXACIN500 MG ORAL; LOVENOX10 M4 SUBQ; LOVENOX40 MG/0.4 SUBQ; MILK OF MA400 MG/51 ORAL; MOM30 ML ORAL; MYLANTA PO; NITRO0.4 SL; NITROSTAT0.4 M1 SL; NITROSTAT0.4 M2 SL; ONDANSETRON ODT4 MG BC; PEPCID AC20 M2 PO; POTASSIUM40 MEQ/11 PO; PREDNISOLO15 MG/5 M1 ORAL; PREDNISONE20 M1 PO; PREDNISONE20 MG ORAL; ROBITUSSIN100 MG/52 ORAL; SYNTHROID150 MCG ORAL; SYNTHROID175 MCG ORAL; TYLENOL EXTRA500 MG ORAL; VITAMIN D34000 UNIT PO; VITAMIN D35000 UNI2 PO; VITAMIN D35000 UNIT PO; VITAMIN D400 INTLU ORAL; ZOFRAN4 M1 ORAL; ZOFRAN4 M3 ORAL; ZYPREXA10 MG ORAL; ZYPREXA15 MG ORAL
[2019-08-02 12:00] VITALS: BP 149/67
--- NOTE | 2019-08-02 12:01 | Emergency Room Report ---
History of Present Illness General Chief Complaint: Dyspnea/Respdistress Source: EMS Present Illness HPI Patient is brought in by paramedics with reports of desaturation and shortness of breath Patient himself is nonverbal cannot provide any input This does limit the history of present illness Unknown regarding recent cough unknown regarding fever patient appears to have been here recently with significant COPD And respiratory distress Allergies: Coded Allergies: LITHIUM (Verified Allergy, Unknown, 02/07/19) Patient History Limited by: medical condition Past Medical History: see triage record Reviewed Nursing Documentation: PMH: Agreed; PSxH: Agreed Nursing Documentation-PMH Hx Cardiac Problems: Yes - Hyperlipidemia, Hypothyroidism, Parkinson'sm Hypocalcemia, Hx COPD: Yes Hx Cancer: No Hx Gastrointestinal Problems: No Hx Neurological Problems: Yes Hx Dementia: Yes Hx Parkinson's Disease: Yes Review of Systems All Other Systems: limited - Other than the ones mentioned in the history of present illness all others are reviewed however they do stay limited due to the patient's mental status Physical Exam Vital Signs Date Time Temp Pulse Resp B/P (MAP) Pulse Ox O2 Delivery O2 Flow Rate FiO2 08/02/19 11:32 97.0 80 20 156/69 (98) 94 Non-Rebreather 15.0 Sp02 EP Interpretation: reviewed, normal General Appearance: moderate distress - Patient is not responsive Head: normocephalic, atraumatic Eyes: bilateral eye PERRL, bilateral eye EOMI ENT: EOM grossly intact Neck: supple Respiratory: other - Poor respiratory effort, mildly tachypneic crackles diffusely Cardiovascular #1: regular rate, rhythm Gastrointestinal: non tender, soft Musculoskeletal: other - Patient does not follow commands however withdraws from physical stimuli Neurologic: responsive - To physical stimuli Skin: no rash Lymphatic: no adenopathy Procedures Critical Care Time Critical Care Time 50 minutes for multiple re-evaluations initial critical respiratory presentation concerning for respiratory failure not including any procedural time Medical Decision Making Diagnostic Impression: Primary Impression: Dyspnea Additional Impression: Respiratory distress ER Course Patient is a fairly complex patient with multiple differential to consideration including but not limited to cardiac cardiopulmonary and vascular emergencies Patient initiated on medication and acute intervention in the ER has continued to significantly improve EKG is appropriate x-ray shows some congestion and patient admitted for further inpatient care in serious condition Labs Test 08/02/19 12:00 08/02/19 12:14 08/02/19 12:37 White Blood Count 8.5 K/UL (4.8-10.8) Red Blood Count 3.45 M/UL (4.20-5.40) Hemoglobin 11.3 G/DL (12.0-16.0) Hematocrit 32.5 % (37.0-47.0) Mean Corpuscular Volume 94 FL (80-99) Mean Corpuscular Hemoglobin 32.7 PG (27.0-31.0) Mean Corpuscular Hemoglobin Concent 34.7 G/DL (32.0-36.0) Red Cell Distribution Width 12.7 % (11.6-14.8) Platelet Count 198 K/UL (150-450) Mean Platelet Volume 6.9 FL (6.5-10.1) Neutrophils (%) (Auto) 80.0 % (45.0-75.0) Lymphocytes (%) (Auto) 12.1 % (20.0-45.0) Monocytes (%) (Auto) 7.2 % (1.0-10.0) Eosinophils (%) (Auto) 0.1 % (0.0-3.0) Basophils (%) (Auto) 0.7 % (0.0-2.0) Sodium Level 137 MMOL/L (136-145) Potassium Level 4.5 MMOL/L (3.5-5.1) Chloride Level 95 MMOL/L (98-107) Carbon Dioxide Level 33 MMOL/L (21-32) Anion Gap 9 mmol/L (5-15) Blood Urea Nitrogen 22 mg/dL (7-18) Creatinine 0.9 MG/DL (0.55-1.30) Estimat Glomerular Filtration Rate > 60 mL/min (>60) Glucose Level 110 MG/DL (74-106) Lactic Acid Level 1.30 mmol/L (0.4-2.0) Calcium Level 8.8 MG/DL (8.5-10.1) Total Bilirubin 0.9 MG/DL (0.2-1.0) Aspartate Amino Transf (AST/SGOT) 23 U/L (15-37) Alanine Aminotransferase (ALT/SGPT) 41 U/L (12-78) Alkaline Phosphatase 71 U/L (46-116) Total Creatine Kinase 231 U/L (26-308) Creatine Kinase MB 7.3 NG/ML (0.0-3.6) Creatine Kinase MB Relative Index 3.1 Troponin I 0.112 ng/mL (0.000-0.056) Pro-B-Type Natriuretic Peptide 7953 pg/mL (0-125) Total Protein 7.7 G/DL (6.4-8.2) Albumin 4.0 G/DL (3.4-5.0) Globulin 3.7 g/dL Albumin/Globulin Ratio 1.1 (1.0-2.7) Lipase 128 U/L (73-393) Arterial Blood pH 7.352 (7.350-7.450) Arterial Blood Partial Pressure CO2 54.9 mmHg (35.0-45.0) Arterial Blood Partial Pressure O2 60.9 mmHg (75.0-100.0) Arterial Blood HCO3 29.8 mmol/L (22.0-26.0) Arterial Blood Oxygen Saturation 88.5 % (95-100) Arterial Blood Base Excess 3.2 (-2-2) Raphael Test Positive Urine Color Yellow Urine Appearance Clear Urine pH 6 (4.5-8.0) Urine Specific [place] 1.025 (1.005-1.035) Urine Protein 4+ (NEGATIVE) Urine Glucose (UA) Negative (NEGATIVE) Urine Ketones Negative (NEGATIVE) Urine Blood 2+ (NEGATIVE) Urine Nitrite Negative (NEGATIVE) Urine Bilirubin Negative (NEGATIVE) Urine Urobilinogen Normal MG/DL (0.0-1.0) Urine Leukocyte Esterase Negative (NEGATIVE) Urine RBC 5-10 /HPF (0 - 2) Urine WBC 0-2 /HPF (0 - 2) Urine Squamous Epithelial Cells Few /LPF (NONE/OCC) Urine Bacteria Occasional /HPF (NONE) Rhythm Strip Diag. Results EP Interpretation: yes Rate: 80 Rhythm: NSR, no PVC's, no ectopy Chest X-Ray Diagnostic Results Chest X-Ray Diagnostic Results : Chest X-Ray Ordered: Yes # of Views/Limited/Complete: 1 View Indication: Shortness of Breath EP Interpretation: Yes Interpretation: no consolidation, no effusion, no pneumothorax, other - Cardiomegaly some congestion Impression: Other - Worsening congestion Electronically Signed by: Dani Gomez DO Last Vital Signs Date Time Temp Pulse Resp B/P (MAP) Pulse Ox O2 Delivery O2 Flow Rate FiO2 08/02/19 11:32 97.0 80 20 156/69 (98) 94 Non-Rebreather 15.0 Status: improved Disposition: ADMITTED INPATIENT Condition: Serious Referrals: Dani Perera MD (PCP) Dani Gomez DO Aug 02, 2019 12:01
--- NOTE | 2019-08-02 12:30 | NUR ---
ED Nurse Note: Pt brought in by ambulance from [facility]. Per ambulance, patient 02 dropped to 79% on RA, but 96% 3L in ambulance. Pt current O2 is 98%. Placed placed on bipap, RT present in room. Pt is alert and orientedx3, weak. Pt set up to monitor. IV established and blood drawn. has seen patient.
[2019-08-02 13:02] LABS: BASOPHILS % (AUTO) 0.7 % (0.0-2.0); EOSINOPHILS % (AUTO) 0.1 % (0.0-3.0); HEMATOCRIT 32.5 % (37.0-47.0); HEMOGLOBIN 11.3 G/DL (12.0-16.0); LYMPHOCYTES % (AUTO) 12.1 % (20.0-45.0); MEAN CORPUSCULAR VOLUME 94 FL (80-99); MONOCYTES % (AUTO) 7.2 % (1.0-10.0); PLATELET COUNT 198 K/UL (150-450); RED BLOOD COUNT 3.45 M/UL (4.20-5.40); RED CELL DISTRIBUTION WIDTH 12.7 % (11.6-14.8); WHITE BLOOD COUNT 8.5 K/UL (4.8-10.8)
[2019-08-02 13:20] LABS: ANION GAP 9 mmol/L (5-15); BLOOD UREA NITROGEN 22 mg/dL (7-18); CALCIUM 8.8 MG/DL (8.5-10.1); CARBON DIOXIDE 33 MMOL/L (21-32); CHLORIDE 95 MMOL/L (98-107); CREATININE 0.9 MG/DL (0.55-1.30); POTASSIUM 4.5 MMOL/L (3.5-5.1); SODIUM 137 MMOL/L (136-145)
[2019-08-02 13:35] LABS: ALANINE AMINOTRANSFERASE 41 U/L (12-78); ALBUMIN/GLOBULIN RATIO 1.1 (1.0-2.7); ALKALINE PHOSPHATASE 71 U/L (46-116); ASPARTATE AMINO TRANSFERASE 23 U/L (15-37); BILIRUBIN,TOTAL 0.9 MG/DL (0.2-1.0); CKMB 7.3 NG/ML (0.0-3.6); CREATINE KINASE 231 U/L (26-308)
[2019-08-02 13:35] LABS: APPEARANCE,URINE CLEAR; BILIRUBIN, URINE NEGATIVE (NEGATIVE); GLUCOSE, URINE (UA) NEGATIVE (NEGATIVE); KETONES,URINE NEGATIVE (NEGATIVE); LEUKOCYTE ESTERASE ,URINE NEGATIVE (NEGATIVE); NITRITE,URINE NEGATIVE (NEGATIVE); PH,URINE 6 (4.5-8.0); PROTEIN,URINE 4+ (NEGATIVE); UROBILINOGEN,URINE NORMAL MG/DL (0.0-1.0)
[2019-08-02 13:43] LABS: COLOR,URINE YELLOW
[2019-08-02 14:00] VITALS: BP 144/66
--- NOTE | 2019-08-02 14:58 | Diagnostic Imaging Report ---
Indication: Shortness of breath Technique: One view of the chest Comparison: 07/01/2019 Findings: The heart is enlarged. There is mild interstitial congestion, which is less severe than on the prior study. The pleural spaces remain clear Impression: Cardiomegaly Interstitial congestion, less severe than on prior exam of 07/01/2019
[2019-08-02 19:10] VITALS: BP 107/29
--- NOTE | 2019-08-02 19:18 | NUR ---
ED Nurse Note: pt received from DARREL Mckinley. pt is in bed with eyes closed, VSS, pt is on a bipap machine, she does not appear to be in any distress at this time, safety precautions are in place, IV line is patent and flushes without complications. will continue to monitor.
[2019-08-02 21:45] VITALS: BP_SYST 126; BP_SYST 97; BP_DIAS 26; BP_DIAS 30
--- NOTE | 2019-08-02 22:11 | NUR ---
ED Nurse Note: call made to Dr. Escobar for inpatient orders. voicemail instructed to send Dr a text message, message sent regarding orders. will continue to wait for inpatient orders.
--- NOTE | 2019-08-02 23:32 | NUR ---
ED Nurse Note: called to give report, put on hold for 7 minutes. will attempt to call back
--- NOTE | 2019-08-02 23:44 | NUR ---
TRANSFER TO FLOOR: Patient transferred to as ordered, per ERMD. Report given to DARREL Singer . Belongings sent with pt.
--- NOTE | 2019-08-02 23:55 | NUR ---
NURSE NOTES: LE: RECEIVED PATIENT FROM ER NURSE DARREL TORRES. PATIENT ALERT, ORIENTED X2, DENIED PAIN, RESPIRATION REGULAR, O2 SATURATION OVER 95% NOTED ON 100% MASK, NO COUGH SIGN, ABDOMEN SOFT, VOIDED, YELLOW URINE OUTED, DRIED SKIN, NO SKIN TEAR, PERIPHERAL LINE TO LEFT AC 20G, INTACT AND PATENT, PROVIDED CALL LIGHT WITHIN REACH, WILL CONTINUE TO MONITOR.
[2019-08-03] VITALS (8 sets, daily range): BP systolic 128–148; BP diastolic 39–64
--- NOTE | 2019-08-03 00:50 | NUR ---
NURSE NOTES: LE; ON BIPAP I/E 25/10, FIO2 30% AND RATE 16, O2 SATURATION OVER 97% NOTED AT 0010AM. CALLED DR MEZA, LEFT MESSAGE AT 0035AM.
[2019-08-03] MEDS ORDERED: Docusate 100mg cap ORAL PRN (01:15)
[2019-08-03] MEDS ORDERED: Fleet's Enema 133ml RECTAL PRN (01:15)
--- NOTE | 2019-08-03 01:18 | NUR ---
NURSE NOTES: LE: CALLED DR. MANRIQUE REGARDING ADMISSION ORDER AT 0045AM. CALLED [facility] REGARDING PNA AND FLU VACCINATION STATUS THAT UNKNOWN STATUS, NEGATIVE PPD RESULT ONLY AT 0058AM. CALLED BACK FROM DR. FONTENOT THAT RECEIVED ADMISSION ORDER AND READ BACK AT 0013AM. Addendum: 08/03/19 at 0630 by BO DEL TORO RN NURSE NOTES: LE: CALLED DR. MANRIQUE REGARDING ADMISSION ORDER AT 0045AM. CALLED [facility] REGARDING PNA AND FLU VACCINATION STATUS THAT UNKNOWN STATUS, NEGATIVE PPD RESULT ONLY AT 0058AM. CALLED BACK FROM DR. FONTENOT THAT RECEIVED ADMISSION ORDER AND READ BACK AT 0013AM.
[2019-08-03] MEDS ORDERED: Nitroglycerin Subl 0.4mg tab SL PRN (01:45)
[2019-08-03] MEDS ORDERED: guaiFENesin 100mg/5ml Liq ud ORAL PRN (01:45)
[2019-08-03] MEDS ORDERED: Albuterol/Ipratropium 3ml neb HHN PRN (01:45)
[2019-08-03] MEDS: Solu-MEDROL 40mg Inj IVP SCH ×2 (01:48→10:04)
--- NOTE | 2019-08-03 03:05 | NUR ---
NURSE NOTES: PATIENT ASLEEP STATUS, HEART RATE 40'S/MIN SB NOTED THAT PATIENT AWOKE, HEART RATE GOES UP TO OVER 60'S/MIN WHEN AWAKE, DENIED CHEST DISCOMFORT OR PAIN, WILL CONTINUE TO MONITOR.
--- NOTE | 2019-08-03 04:56 | NUR ---
NURSE NOTES: ONGOING NS AT 100ML/HR VIA LEFT SIDE PPL, MORNING CARE WAS DONE, NO BM STATUS.
[2019-08-03 05:51] LABS: ANION GAP 9 mmol/L (5-15); BLOOD UREA NITROGEN 22 mg/dL (7-18); CALCIUM 8.6 MG/DL (8.5-10.1); CARBON DIOXIDE 28 MMOL/L (21-32); CHLORIDE 99 MMOL/L (98-107); CREATININE 0.9 MG/DL (0.55-1.30); POTASSIUM 4.5 MMOL/L (3.5-5.1); SODIUM 136 MMOL/L (136-145)
--- NOTE | 2019-08-03 06:09 | NUR ---
NURSE NOTES: LE: CALLED BACK FROM LAB THAT BLOOD CONTAMINATED, WILL COME AGAIN.
--- NOTE | 2019-08-03 06:40 | NUR ---
NURSE NOTES: LE: PATIENT FALLING ASLEEP, NO ACUTE DISTRESS NOTED AT THIS SHIFT.
--- NOTE | 2019-08-03 07:15 | NUR ---
HAND-OFF: Report given to DARREL PRAKASH.
--- NOTE | 2019-08-03 07:21 | NUR ---
RESPIRATORY NOTE: Recived pt on Bipap 15/5back up rate 16-30%FiO2. Foam tapes in place to prevent skin breakdown. Pt is awake, alert, able to follow simple commands, tolerating well the Bipap's settings. No SOb or resp distress noted at this time. Alarms are set and audible, Bipap is plugged into the red outlet, ambu bag at bedside. DARREL Krishnamurthy aware. Will continue to monitor. Addendum: 08/03/19 at 1017 by Jazmin Rodriguez RT DARREL hay, not DARREL Krishnamurthy
--- NOTE | 2019-08-03 08:15 | NUR ---
NURSE NOTES: Dr. tillman rounded and updated on patient porgress. reviewed labs and assessed patient at the bedside, no verbal orders given at this time.
--- NOTE | 2019-08-03 08:45 | NUR ---
NURSE NOTES: Dr. Ochoa rounded at the patient bedside, updated on status and laboratory results with no verbal orders given.
[2019-08-03] MEDS ORDERED: Levofloxacin 750mg tab ORAL SCH (09:00)
--- NOTE | 2019-08-03 09:03 | History & Physical ---
History of Present Illness General Reason for Hospitalization: Dyspnea/Respdistress Present Illness Allergies: Coded Allergies: LITHIUM (Verified Allergy, Unknown, 02/07/19) Medication History Scheduled Amantadine Hcl* (Amantadine*), 100 MG ORAL TWICE A DAY, (Reported) Aspirin* (Aspirin Ec*), 325 MG ORAL DAILY, (Reported) Atorvastatin Calcium* (Atorvastatin Calcium*), 10 MG ORAL BEDTIME, (Reported) Cholecalciferol (Vitamin D3) (Vitamin D3), 5,000 UNIT PO DAILY, (Reported) Cranberry Fruit Concentrate (Cranberry), 2 TAB PO BID, (Reported) Divalproex Sodium (Depakote Sprinkle), 250 MG PO TID, (Reported) Docusate Sodium* (Colace*), 100 MG ORAL TWICE A DAY, (Reported) Enoxaparin* (Lovenox*), 0.4 ML SUBQ Q12HR, (Reported) Famotidine* (Pepcid 20mg tablet*), 20 MG ORAL DAILY, (Reported) Furosemide* (Lasix*), 20 MG ORAL 3X A WEEK Q2DAYS, (Reported) Levofloxacin (Levofloxacin*), 500 MG ORAL DAILY, (Reported) Levothyroxine Sodium* (Synthroid*), 150 MCG ORAL DAILY, (Reported) Olanzapine* (Zyprexa*), 10 MG ORAL BID, (Reported) Scheduled PRN Acetaminophen* (Tylenol Extra Strength*), 1,000 MG ORAL Q6H PRN for MODERATE PAIN , (Reported) Acetaminophen* (Acetaminophen 325MG Tablet*), 650 MG ORAL Q6H PRN for Mild Pain (Pain Scale 1-3), (Reported) Clonidine Hcl (Clonidine Hcl), 0.1 MG PO Q6HR PRN for For High Blood Pressure, ( Reported) Fluticasone/Salmeterol (Advair 250-50 Diskus), 1 PUFF INH EVERY 12 HOURS PRN for COPD, (Reported) Guaifenesin* (Guaifenesin*), 10 ML ORAL Q4HR PRN for For Cough, (Reported) Ipratropium Triangle 0.5MG/2.5ML (Ipratropium Triangle 0.5MG/2.5ML), 0.5 MG HHN Q4HR PRN for Shortness of Breath, (Reported) Magnesium Hydroxide* (Milk Of Magnesia*), 30 ML ORAL QHS PRN for Constipation, ( Reported) Na Phos,M-B/Na Phos,Di-Ba* (Fleet Enema*), 133 ML RECTAL EVERY 2 HOURS PRN for Constipation, (Reported) Nitroglycerin 0.4MG table* (Nitroglycerin*), 0.4 MG SL .Q5MIN X 3 DOSES PRN for CHEST PAIN, (Reported) Ondansetron* (Zofran*), 4 MG ORAL Q4HR PRN for Nausea & Vomiting, (Reported) Patient History Healthcare decision maker [facility] Resuscitation status Full Code Advanced Directive on File Review of Systems Review of Symptoms General ROS: no weight loss or fever Psychological ROS: no depression or mood changes, no memory loss Ophthalmic ROS: no visual changes or eye irritation ENT ROS: no nasal congestion, hearing loss, dizziness Allergy and Immunology ROS: no allergic symptoms or urticaria Hematological and Lymphatic ROS: no swollen glands, unusual bleeding or bruising Endocrine ROS: no polyuria, polydipsia, weight changes, temperature intolerance Respiratory ROS: no cough, shortness of breath, or wheezing Cardiovascular ROS: no chest pain or dyspnea on exertion Gastrointestinal ROS: denies abdominal pain, bright red blood in stool. Musculoskeletal ROS: no myalgias or arthralgias Neurological ROS: no TIA or stroke symptoms Dermatological ROS: no new or changing skin lesions, rashes or pruritis Physical Exam Physical Exam General appearance: alert, cooperative, no distress, appears stated age Head: Normocephalic, without obvious abnormality, atraumatic Eyes: conjunctivae/corneas clear. PERRL, EOM's intact. Fundi benign Throat: Lips, mucosa, and tongue normal. Teeth and gums normal Neck: supple, symmetrical, trachea midline, no adenopathy, thyroid: not enlarged, symmetric, no tenderness/mass/nodules, no carotid bruit and no JVD Lungs: clear to auscultation bilaterally Heart: regular rate and rhythm, S1, S2 normal, no murmur, click, rub or gallop Abdomen: soft, non-tender. Bowel sounds normal. No masses, no organomegaly Extremities: extremities normal, atraumatic, no cyanosis or edema Pulses: 2+ and symmetric Skin: Skin color, texture, turgor normal. No rashes or lesions Neurologic: Grossly normal Last 24 Hour Vital Signs Date Time Temp Pulse Resp B/P (MAP) Pulse Ox O2 Delivery O2 Flow Rate FiO2 08/03/19 07:21 63 20 100 30 08/03/19 05:15 58 24 99 30 08/03/19 04:00 97.4 61 23 136/46 (76) 97 08/03/19 04:00 Bi-pap 15.0 08/03/19 03:13 52 08/03/19 03:00 60 18 99 30 08/03/19 01:14 65 17 99 30 08/03/19 00:48 49 08/03/19 00:18 Bi-Pap 15.0 08/03/19 00:15 67 18 99 30 08/03/19 00:10 30 08/03/19 00:04 81 08/03/19 00:00 97.6 57 19 141/50 (80) 08/02/19 23:50 97.0 67 19 126/30 96 Bi-pap 15.0 30 08/02/19 22:54 58 19 96 30 08/02/19 21:45 67 19 126/30 97 Bi-pap 08/02/19 21:18 69 21 98 30 08/02/19 19:10 60 25 107/29 94 Bi-pap 08/02/19 18:50 57 20 94 30 08/02/19 16:59 51 25 98 30 08/02/19 14:30 59 19 98 30 08/02/19 14:00 97.0 89 21 144/66 92 Bi-pap 15.0 08/02/19 12:30 58 21 93 30 08/02/19 12:10 56 23 92 30 08/02/19 12:10 56 23 92 Bi-Pap 30 08/02/19 12:00 87 22 Bi-pap 92 08/02/19 12:00 97.0 87 22 149/67 92 Bi-pap 08/02/19 11:32 97.0 80 20 156/69 (98) 94 Non-Rebreather 15.0 Intake and Output 08/02/19 08/03/19 19:00 07:00 Intake Total 0 ml 525 ml Balance 0 ml 525 ml Intake Oral 0 ml IV Total 525 ml # Voids 1 Laboratory Tests Test 08/02/19 12:00 08/02/19 12:14 08/02/19 12:37 08/03/19 04:55 White Blood Count 8.5 K/UL (4.8-10.8) Red Blood Count 3.45 M/UL (4.20-5.40) L Hemoglobin 11.3 G/DL (12.0-16.0) L Hematocrit 32.5 % (37.0-47.0) L Mean Corpuscular Volume 94 FL (80-99) Mean Corpuscular Hemoglobin 32.7 PG (27.0-31.0) H Mean Corpuscular Hemoglobin Concent 34.7 G/DL (32.0-36.0) Red Cell Distribution Width 12.7 % (11.6-14.8) Platelet Count 198 K/UL (150-450) Mean Platelet Volume 6.9 FL (6.5-10.1) Neutrophils (%) (Auto) 80.0 % (45.0-75.0) H Lymphocytes (%) (Auto) 12.1 % (20.0-45.0) L Monocytes (%) (Auto) 7.2 % (1.0-10.0) Eosinophils (%) (Auto) 0.1 % (0.0-3.0) Basophils (%) (Auto) 0.7 % (0.0-2.0) Sodium Level 137 MMOL/L (136-145) 136 MMOL/L (136-145) Potassium Level 4.5 MMOL/L (3.5-5.1) 4.5 MMOL/L (3.5-5.1) Chloride Level 95 MMOL/L (98-107) L 99 MMOL/L (98-107) Carbon Dioxide Level 33 MMOL/L (21-32) H 28 MMOL/L (21-32) Anion Gap 9 mmol/L (5-15) 9 mmol/L (5-15) Blood Urea Nitrogen 22 mg/dL (7-18) H 22 mg/dL (7-18) H Creatinine 0.9 MG/DL (0.55-1.30) 0.9 MG/DL (0.55-1.30) Estimat Glomerular Filtration Rate > 60 mL/min (>60) > 60 mL/min (>60) Glucose Level 110 MG/DL (74-106) H 104 MG/DL (74-106) Lactic Acid Level 1.30 mmol/L (0.4-2.0) Calcium Level 8.8 MG/DL (8.5-10.1) 8.6 MG/DL (8.5-10.1) Total Bilirubin 0.9 MG/DL (0.2-1.0) Aspartate Amino Transf (AST/SGOT) 23 U/L (15-37) Alanine Aminotransferase (ALT/SGPT) 41 U/L (12-78) Alkaline Phosphatase 71 U/L (46-116) Total Creatine Kinase 231 U/L (26-308) Creatine Kinase MB 7.3 NG/ML (0.0-3.6) H Creatine Kinase MB Relative Index 3.1 Troponin I 0.112 ng/mL (0.000-0.056) Pro-B-Type Natriuretic Peptide 7953 pg/mL (0-125) H Total Protein 7.7 G/DL (6.4-8.2) Albumin 4.0 G/DL (3.4-5.0) Globulin 3.7 g/dL Albumin/Globulin Ratio 1.1 (1.0-2.7) Lipase 128 U/L (73-393) Arterial Blood pH 7.352 (7.350-7.450) Arterial Blood Partial Pressure CO2 54.9 mmHg (35.0-45.0) H Arterial Blood Partial Pressure O2 60.9 mmHg (75.0-100.0) L Arterial Blood HCO3 29.8 mmol/L (22.0-26.0) H Arterial Blood Oxygen Saturation 88.5 % (95-100) *L Arterial Blood Base Excess 3.2 (-2-2) H Raphael Test Positive Urine Color Yellow Urine Appearance Clear Urine pH 6 (4.5-8.0) Urine Specific [place] 1.025 (1.005-1.035) Urine Protein 4+ (NEGATIVE) H Urine Glucose (UA) Negative (NEGATIVE) Urine Ketones Negative (NEGATIVE) Urine Blood 2+ (NEGATIVE) H Urine Nitrite Negative (NEGATIVE) Urine Bilirubin Negative (NEGATIVE) Urine Urobilinogen Normal MG/DL (0.0-1.0) Urine Leukocyte Esterase Negative (NEGATIVE) Urine RBC 5-10 /HPF (0 - 2) H Urine WBC 0-2 /HPF (0 - 2) Urine Squamous Epithelial Cells Few /LPF (NONE/OCC) Urine Bacteria Occasional /HPF (NONE) Test 2/21/20 06:10 White Blood Count Pending Red Blood Count Pending Hemoglobin Pending Hematocrit Pending Mean Corpuscular Volume Pending Mean Corpuscular Hemoglobin Pending Mean Corpuscular Hemoglobin Concent Pending Red Cell Distribution Width Pending Platelet Count Pending Mean Platelet Volume Pending Neutrophils (%) (Auto) Pending Lymphocytes (%) (Auto) Pending Monocytes (%) (Auto) Pending Eosinophils (%) (Auto) Pending Basophils (%) (Auto) Pending Microbiology Date/Time Source Procedure Growth Status 08/02/19 12:37 Nasal Nares - Final Complete 08/02/19 12:37 Nasal Nares - Final Complete 08/02/19 17:57 Rectum Received Height (Feet): 5 Height (Inches): 6.00 Weight (Pounds): 205 Medications Current Medications Medications (Trade) Dose Ordered Sig/Angie Route PRN Reason Start Time Stop Time Status Last Admin Dose Admin Albuterol/ Ipratropium (Albuterol/ Ipratropium) 3 ml Q4HRT PRN HHN Shortness of Breath 08/03/19 01:45 08/08/19 01:44 Amantadine HCl (Symmetrel) 100 mg DAILY ORAL 08/03/19 09:00 09/02/19 08:59 Aspirin (ASA) 325 mg DAILY ORAL 08/03/19 09:00 09/02/19 08:59 Atorvastatin Calcium (Lipitor) 10 mg BEDTIME ORAL 08/03/19 21:00 09/02/19 20:59 Bisacodyl (Dulcolax) 10 mg DAILYPRN PRN RECTAL Constipation 08/03/19 01:15 09/02/19 01:14 Clonidine HCl (Catapres Tab) 0.1 mg Q6H PRN ORAL For High Blood Pressure 08/03/19 01:15 09/02/19 01:14 Divalproex Sodium (Depakote ER) 250 mg TID ORAL 08/03/19 09:00 09/02/19 08:59 Docusate Sodium (Colace) 100 mg BID PRN ORAL Constipation 08/03/19 01:15 09/02/19 01:14 Enoxaparin Sodium (Lovenox) 40 mg EVERY 12 HOURS SUBQ 08/03/19 09:00 09/02/19 08:59 Famotidine (Pepcid) 20 mg DAILY ORAL 08/03/19 09:00 09/02/19 08:59 Guaifenesin (Robitussin) 100 mg Q4H PRN ORAL For Cough 08/03/19 01:45 09/02/19 01:44 Levofloxacin (Levaquin) 750 mg Q48H ORAL 08/03/19 09:00 08/10/19 08:59 Levothyroxine Sodium (Synthroid) 150 mcg DAILY@0630 ORAL 08/03/19 06:30 09/02/19 06:29 Methylprednisolone Sodium Succinate (Solu-MEDROL) 60 mg DAILY IVP 08/03/19 01:15 09/02/19 01:14 08/03/19 01:48 Nitroglycerin (Ntg) 0.4 mg Q5MIN X 3 DOSES PRN SL CHEST PAIN 08/03/19 01:45 09/02/19 01:44 Olanzapine (ZyPREXA) 10 mg BID ORAL 08/03/19 09:00 09/02/19 08:59 Ondansetron HCl (Zofran) 4 mg Q4H PRN ORAL Nausea & Vomiting 08/03/19 01:45 09/02/19 01:44 Sodium Chloride 1,000 ml @ 100 mls/hr Q10H IV 08/03/19 02:00 09/02/19 01:59 08/03/19 01:48 Sodium Phosphate (Fleet's Sodium Phosl Enema) 133 ml DAILY PRN RECTAL Constipation 08/03/19 01:15 09/02/19 01:14 Assessment/Plan Assessment/Plan: Internal Medicine H&P Covering Dr. Dani Gardner RFA: Resp failure, copd exacerbation DOS: 08/03/19 HPI 78y old female, brought in by paramedics with reports of desaturation and shortness of breath, she is well known to me, from before Patient himself is nonverbal cannot provide any input This does limit the history of present illness Unknown regarding recent cough unknown regarding fever patient appears to have been here recently with significant COPD And respiratory distress She has been admitted here with similar findings in the past Allergies: Coded Allergies: LITHIUM (Verified Allergy, Unknown, 02/07/19) Patient History Limited by: medical condition Past Medical History: see triage record Reviewed Nursing Documentation: PMH: Agreed; PSxH: Agreed Nursing Documentation-PMH Hx Cardiac Problems: Yes - Hyperlipidemia, Hypothyroidism, Parkinson'sm Hypocalcemia, Hx COPD: Yes Hx Cancer: No Hx Gastrointestinal Problems: No Hx Neurological Problems: Yes Hx Dementia: Yes Hx Parkinson's Disease: Yes Review of Systems All Other Systems: limited - Other than the ones mentioned in the history of present illness all others are reviewed however they do stay limited due to the patient's mental status Physical Exam: Vitals: reviewed General: NAD HEENT: nc, at Neck: supple Chest: decreased breath sounds bilaterally Cardiovascular: RRR, no s3, s4 Abdomen: soft, nontender, nd Extremities: no cce, normal range of motion Neuro: nonverbal Labs: noted Imaging: reviewed Assessment and recs: # Respiratory failure with copd exacerbation likely --> on bipap --> pulm toilet --> breathing rx --> steriods --> pulm eval # 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 I have a high level of concern because . Patient is at high risk for . Plan of care/treatment include . Patient care is expected to be greater than 2 midnights. OBSERVATION level of care is warranted for this patient. Patient is a 89 year old with who presents with . Patient will be admitted for 1 midnight, but if additional night(s) is/are necessary, patient will be converted to inpatient status for the entire hospitalization Disposition: Once the patient is stable to leave the hospital, I anticipate the patient will likely be discharged to the following environment: Estimated discharge date: I spent 70 minutes on this patient's case, and minutes was dedicated to counseling and/or care coordination. MIPS (Merit-based Incentive Payment System) Applicable CPT: 72518, 33902 CHECK ALL THAT ARE MET: Measure #5 (CHF): All ages. Prescribe RENO/ARB upon discharge for patients with left ventricular systolic dysfunction. If not, the reason is clearly documented in the medical chart. Measure #8 (CHF): All ages. Prescribe a beta galo upon discharge for patients with left ventricular systolic dysfunction. If not, the reason is clearly documented in the medical chart. Measure #47 Advance care plan or surrogate decision maker documented in the medical record. Measure #130 The provider has documented, updated, or reviewed the patients current medication list and has documented it in the patients note. Measure #374 (All): Send report to referring provider. Measure #407(Sepsis due to MSSA bacteremia): Age 18+ Patient treated with a beta-lactam antibiotic (Nafcillin, Oxacillin or Cefazolin) as definitive therapy. MEDICAL COMPLEXITY High complexity medical decision making (need 2/3 categories) Problem - need 4 points Acute/new problem with new plan for workup (4 points, 1 max) Acute/new problem without additional workup (3 points, 1 max) Unstable chronic problem actively being managed (2 point each, 2 max) Stable chronic problem actively being managed (1 point each, 2 max) Self-limited/transient process (constipation, muscle ache, etc) (1 point each , 2 max) Data - need 4 points Reviewed labs/imaging studies (1 points, 2 max) Independent review of imaging (EKG, xrays, etc) (2 points, 2 max) Discussed case with consult/other MD/RN (2 points, 2 max) High Risk - qualify if have one of the following: Severe exacerbation of acute problem, acute mental status change, IV narcotics , monitoring drug levels (vancomycin, INR, tacrolimus etc) Frank Escobar MD Aug 03, 2019 09:03
[2019-08-03 09:28] LABS: BASOPHILS % (AUTO) 0.5 % (0.0-2.0); EOSINOPHILS % (AUTO) 0.2 % (0.0-3.0); HEMATOCRIT 31.7 % (37.0-47.0); HEMOGLOBIN 10.8 G/DL (12.0-16.0); LYMPHOCYTES % (AUTO) 14.3 % (20.0-45.0); MEAN CORPUSCULAR VOLUME 94 FL (80-99); MONOCYTES % (AUTO) 4.1 % (1.0-10.0); NEUTROPHILS % (AUTO) 80.9 % (45.0-75.0); PLATELET COUNT 166 K/UL (150-450); RED BLOOD COUNT 3.37 M/UL (4.20-5.40); RED CELL DISTRIBUTION WIDTH 12.9 % (11.6-14.8); WHITE BLOOD COUNT 6.1 K/UL (4.8-10.8)
[2019-08-03] MEDS: Amantadine 100mg cap ORAL SCH (10:04)
[2019-08-03] MEDS: OLANZapine 10mg tab ORAL SCH ×2 (10:05→17:50)
[2019-08-03] MEDS: Depakote ER 250mg tab ORAL SCH ×3 (10:05→17:50)
[2019-08-03] MEDS: Enoxaparin 60mg Inj SUBQ SCH ×2 (10:06→21:50)
--- NOTE | 2019-08-03 10:15 | NUR ---
NURSE NOTES: Dr. Davies updated on patient consult, ordered to have a T4, TSH, 2D-echo to order. no further orders given.
--- NOTE | 2019-08-03 11:15 | NUR ---
NURSE NOTES: Patient refused 2d-echo at this time. will attempt at a later time.
--- NOTE | 2019-08-03 11:17 | Cardiac Electrophysiology PN ---
Subjective Subjective [id number] Objective Last 24 Hour Vital Signs Date Time Temp Pulse Resp B/P (MAP) Pulse Ox O2 Delivery O2 Flow Rate FiO2 08/03/19 10:32 97 08/03/19 09:12 53 18 98 30 08/03/19 08:00 68 08/03/19 08:00 97.6 61 19 140/52 (81) 100 08/03/19 08:00 30 08/03/19 07:21 63 20 100 30 08/03/19 05:15 58 24 99 30 08/03/19 04:00 97.4 61 23 136/46 (76) 97 08/03/19 04:00 Bi-pap 15.0 08/03/19 03:13 52 08/03/19 03:00 60 18 99 30 08/03/19 01:14 65 17 99 30 08/03/19 00:48 49 08/03/19 00:18 Bi-Pap 15.0 08/03/19 00:15 67 18 99 30 08/03/19 00:10 30 08/03/19 00:04 81 08/03/19 00:00 97.6 57 19 141/50 (80) 08/02/19 23:50 97.0 67 19 126/30 96 Bi-pap 15.0 30 08/02/19 22:54 58 19 96 30 08/02/19 21:45 67 19 126/30 97 Bi-pap 08/02/19 21:18 69 21 98 30 08/02/19 19:10 60 25 107/29 94 Bi-pap 08/02/19 18:50 57 20 94 30 08/02/19 16:59 51 25 98 30 08/02/19 14:30 59 19 98 30 08/02/19 14:00 97.0 89 21 144/66 92 Bi-pap 15.0 08/02/19 12:30 58 21 93 30 08/02/19 12:10 56 23 92 30 08/02/19 12:10 56 23 92 Bi-Pap 30 08/02/19 12:00 87 22 Bi-pap 92 08/02/19 12:00 97.0 87 22 149/67 92 Bi-pap 08/02/19 11:32 97.0 80 20 156/69 (98) 94 Non-Rebreather 15.0 Intake and Output 08/02/19 08/03/19 19:00 07:00 Intake Total 0 ml 525 ml Balance 0 ml 525 ml Intake Oral 0 ml IV Total 525 ml # Voids 1 Laboratory Tests Test 08/02/19 12:00 08/02/19 12:14 08/02/19 12:37 08/03/19 04:55 White Blood Count 8.5 K/UL (4.8-10.8) Red Blood Count 3.45 M/UL (4.20-5.40) L Hemoglobin 11.3 G/DL (12.0-16.0) L Hematocrit 32.5 % (37.0-47.0) L Mean Corpuscular Volume 94 FL (80-99) Mean Corpuscular Hemoglobin 32.7 PG (27.0-31.0) H Mean Corpuscular Hemoglobin Concent 34.7 G/DL (32.0-36.0) Red Cell Distribution Width 12.7 % (11.6-14.8) Platelet Count 198 K/UL (150-450) Mean Platelet Volume 6.9 FL (6.5-10.1) Neutrophils (%) (Auto) 80.0 % (45.0-75.0) H Lymphocytes (%) (Auto) 12.1 % (20.0-45.0) L Monocytes (%) (Auto) 7.2 % (1.0-10.0) Eosinophils (%) (Auto) 0.1 % (0.0-3.0) Basophils (%) (Auto) 0.7 % (0.0-2.0) Sodium Level 137 MMOL/L (136-145) 136 MMOL/L (136-145) Potassium Level 4.5 MMOL/L (3.5-5.1) 4.5 MMOL/L (3.5-5.1) Chloride Level 95 MMOL/L (98-107) L 99 MMOL/L (98-107) Carbon Dioxide Level 33 MMOL/L (21-32) H 28 MMOL/L (21-32) Anion Gap 9 mmol/L (5-15) 9 mmol/L (5-15) Blood Urea Nitrogen 22 mg/dL (7-18) H 22 mg/dL (7-18) H Creatinine 0.9 MG/DL (0.55-1.30) 0.9 MG/DL (0.55-1.30) Estimat Glomerular Filtration Rate > 60 mL/min (>60) > 60 mL/min (>60) Glucose Level 110 MG/DL (74-106) H 104 MG/DL (74-106) Lactic Acid Level 1.30 mmol/L (0.4-2.0) Calcium Level 8.8 MG/DL (8.5-10.1) 8.6 MG/DL (8.5-10.1) Total Bilirubin 0.9 MG/DL (0.2-1.0) Aspartate Amino Transf (AST/SGOT) 23 U/L (15-37) Alanine Aminotransferase (ALT/SGPT) 41 U/L (12-78) Alkaline Phosphatase 71 U/L (46-116) Total Creatine Kinase 231 U/L (26-308) Creatine Kinase MB 7.3 NG/ML (0.0-3.6) H Creatine Kinase MB Relative Index 3.1 Troponin I 0.112 ng/mL (0.000-0.056) Pro-B-Type Natriuretic Peptide 7953 pg/mL (0-125) H Total Protein 7.7 G/DL (6.4-8.2) Albumin 4.0 G/DL (3.4-5.0) Globulin 3.7 g/dL Albumin/Globulin Ratio 1.1 (1.0-2.7) Lipase 128 U/L (73-393) Arterial Blood pH 7.352 (7.350-7.450) Arterial Blood Partial Pressure CO2 54.9 mmHg (35.0-45.0) H Arterial Blood Partial Pressure O2 60.9 mmHg (75.0-100.0) L Arterial Blood HCO3 29.8 mmol/L (22.0-26.0) H Arterial Blood Oxygen Saturation 88.5 % (95-100) *L Arterial Blood Base Excess 3.2 (-2-2) H Raphael Test Positive Urine Color Yellow Urine Appearance Clear Urine pH 6 (4.5-8.0) Urine Specific [place] 1.025 (1.005-1.035) Urine Protein 4+ (NEGATIVE) H Urine Glucose (UA) Negative (NEGATIVE) Urine Ketones Negative (NEGATIVE) Urine Blood 2+ (NEGATIVE) H Urine Nitrite Negative (NEGATIVE) Urine Bilirubin Negative (NEGATIVE) Urine Urobilinogen Normal MG/DL (0.0-1.0) Urine Leukocyte Esterase Negative (NEGATIVE) Urine RBC 5-10 /HPF (0 - 2) H Urine WBC 0-2 /HPF (0 - 2) Urine Squamous Epithelial Cells Few /LPF (NONE/OCC) Urine Bacteria Occasional /HPF (NONE) Test 08/03/19 09:00 White Blood Count 6.1 K/UL (4.8-10.8) Red Blood Count 3.37 M/UL (4.20-5.40) L Hemoglobin 10.8 G/DL (12.0-16.0) L Hematocrit 31.7 % (37.0-47.0) L Mean Corpuscular Volume 94 FL (80-99) Mean Corpuscular Hemoglobin 32.2 PG (27.0-31.0) H Mean Corpuscular Hemoglobin Concent 34.1 G/DL (32.0-36.0) Red Cell Distribution Width 12.9 % (11.6-14.8) Platelet Count 166 K/UL (150-450) Mean Platelet Volume 6.6 FL (6.5-10.1) Neutrophils (%) (Auto) 80.9 % (45.0-75.0) H Lymphocytes (%) (Auto) 14.3 % (20.0-45.0) L Monocytes (%) (Auto) 4.1 % (1.0-10.0) Eosinophils (%) (Auto) 0.2 % (0.0-3.0) Basophils (%) (Auto) 0.5 % (0.0-2.0) Thyroid Stimulating Hormone (TSH) 17.319 uiU/mL (0.358-3.740) Free Thyroxine 0.33 NG/DL (0.76-1.46) L Microbiology Date/Time Source Procedure Growth Status 08/02/19 12:37 Nasal Nares - Final Complete 08/02/19 12:37 Nasal Nares - Final Complete 08/02/19 17:57 Rectum Received Cameron Davies MD Aug 03, 2019 11:17
--- NOTE | 2019-08-03 11:20 | NUR ---
NURSE NOTES: Dr. Hernandez updated on patient consult at the bedside. no verbal orders given at this time.
--- NOTE | 2019-08-03 11:25 | NUR ---
NURSE NOTES: Patient refused 2d-echo at this time. would not allow industrial engineering technician to begin study.
--- NOTE | 2019-08-03 12:14 | NUR ---
RD ASSESSMENT & RECOMMENDATIONS SEE CARE ACTIVITY FOR COMPLETE ASSESSMENT DAILY ESTIMATED NEEDS: Needs based on obese, dm, pulmonary, cardiac 73.4kg abw 20-25 kcals/kg 2910-7301 total kcals 1-1.5 g protein/kg 73-110 g total protein 20-25 mL/kg 0517-5914 total fluid mLs NUTRITION DIAGNOSIS: Swallowing difficulty R/T dysphagia, h/o Parkinson's, respiratory status as evidenced by pt on mech soft chopped texture diet, on BIPAP. CURRENT DIET:CCHO MED, SOFI/ mech soft chopped PO DIET RECOMMENDATIONS: Low Na/ CCHO MED diet (texture per BEARING RING ASSEMBLER) ADDITIONAL RECOMMENDATIONS: 1) BEARING RING ASSEMBLER evaluation for appropriate texture -> pt on pureed moist NTL prev adm in Jun currently on mech soft chopped, thin liquids 2) Monitor BGs, need for hypoglycemics: h/o DM 3) Calibrated bedscale wt
--- NOTE | 2019-08-03 13:15 | NUR ---
NURSE NOTES: Patient able to eat with minimal assistance, she is able to self feed. remains awake and alert to name and responds. remains on Ns at 75ml/hr.
--- NOTE | 2019-08-03 13:44 | NUR ---
CARDIOLOGY Pt refused 2D Echo. Nurse aware.
--- NOTE | 2019-08-03 14:15 | NUR ---
NURSE NOTES: Dr. Myers ordered to have Bipap porder changed to PRn and at night time and oxygen order to 2L/min, Rt made aware.
--- NOTE | 2019-08-03 15:12 | NUR ---
MOVIE SHOT CAMERAMAN NOTE SW met w/ pt and completed the assessment. Pt appears to be A&O2x. Pt was unable to provide answers when SW asked a couple of psychosocial questions. Instead, pt changed the topic. There is a copy of POLST in the chart but no signature. Pt resides at [facility] [address] [place] [address]. SW spoke w/ Pili from [employer] office [phone] and confirmed pt is on [facility] conservatorship w/ Deputy Manpreet Aguirre [phone]. SW spoke w/ Deputy Aguirre. He is aware of pt's hospitalization and wants her to return [facility] upon DC. Deputy Aguirre confirmed pt having full code. Deputy Aguirre states since POLST is the clinical part, it will be up to MD. DEPUTY AGUIRRE (CONSERVATOR) TO BE INFORMED OF PT'S DC- [phone]. Signed: 08/03/19 at 1519 by MECCA BHAGAT <Co-Signature Required>
--- NOTE | 2019-08-03 15:45 | Consultation ---
DATE OF CONSULTATION: 08/03/2019 CARDIOLOGY CONSULTATION CONSULTING PHYSICIAN: Cameron Davies M.D. REFERRING PHYSICIAN: Dani Perera M.D. REASON FOR CONSULTATION: Shortness of breath, desaturation, hypertension. HISTORY OF PRESENT ILLNESS: The patient is a 78-year-old lady with history of hypertension, hypothyroidism, hyperlipidemia, Parkinson disease, and COPD who was brought by paramedics for desaturation, shortness of breath. The patient is not able to provide meaningful information. Most of information was obtained from reviewing the patient's records and discussion with the nurse. The patient at the time of my evaluation was in sinus rhythm with stable blood pressure. The patient was bradycardic. The patient also has history of aortic dilatation. Her echocardiogram in February showed EF of 50%. REVIEW OF SYSTEMS: Negative other than what was mentioned in the history of present illness. PAST MEDICAL HISTORY: As mentioned above. FAMILY HISTORY: Noncontributory. MEDICATIONS: Include Synthroid, Lipitor, Lasix. PHYSICAL EXAMINATION: VITAL SIGNS: Show blood pressure of , respirations 18, she is afebrile. HEAD AND NECK: Showed no JVD or carotid bruits. LUNGS: Clear. CARDIOVASCULAR: Shows regular S1 and S2 with no gallop or murmur. ABDOMEN: Soft. EXTREMITIES: There is no pitting edema. LABORATORY AND DIAGNOSTIC DATA: Her labs show white count of 6.5, hematocrit 10.9, hematocrit of 31.7, platelet count was 166. Sodium 136, potassium 4.4, BUN of 22, creatinine 0.9. Troponin is mildly elevated at 0.112. ASSESSMENT AND PLAN: 1. Elevated troponin. Despite normal renal function. BNP is also 8000. We will completely rule out [place] protocol. Repeat EKG and echocardiogram for further evaluation. 2. Bradycardia, could be due to hypothyroidism. TSH is more than 17 and T4 is only 0.3. The patient already on Synthroid 150 mcg daily. 3. Hyperlipidemia, on Lipitor. 4. Desaturation, possible pneumonia, on Levaquin and Solu-Medrol. 5. History of Parkinson disease. Thank you very much for allowing me to participate in the care of this patient. Please do not hesitate to contact me for any questions regarding my evaluation. Cameron Davies M.D. DR: ENRIQUE JOB#: [id number] CC:
--- NOTE | 2019-08-03 15:54 | NUR ---
CASE MANAGEMENT: INITIAL REVIEW 78 YO F NEREYDA FROM [facility] CC: DYSPNEA PMHx: HLD. COPD. DEMENTIA. SI:DYSPNEA T 97 HR 80 RR 20 B/P 156/69 SATS 94% ON 15L/NRB LABS: CL 95 CO2 33 BUN 22 GLU 110 CKMB 7.3 BNP 7953 ABGs PCO2 54.9 PO2 60.9 HCO3 29.8 O2 SAT 88.5 BE 3.2 IS: NS @ 100 mL/HR LIPITOR PO QHS SOLU MEDROL IV QD ASA PO QD PEPCID PO QD LEVAQUIN PO Q48H DEPAKOTE PO TID PATIENT ADMITTED TO ICU 08/02/19 @ 1210 DCP: [facility] PLAN OF CARE: Repeat EKG and echocardiogram for further evaluation 2D ECHO Addendum: 08/03/19 at 1619 by Vianca Klein CM INTERQUAL MET
--- NOTE | 2019-08-03 16:30 | Consultation ---
DATE OF CONSULTATION: 08/03/2019 HISTORY OF PRESENT ILLNESS: This is a 78-year-old female who was brought in by paramedics due to shortness of breath. The patient was unable to provide any meaningful history. The patient is tangential and delusional, easily agitated. PAST PSYCHIATRIC HISTORY: Significant for schizophrenia and dementia. PAST MEDICAL HISTORY: Diabetes, obesity, Parkinson disease, hypothyroidism. ALLERGIES: Odon. SUBSTANCE USE HISTORY: No known history of illicit drug use or alcohol. MENTAL STATUS EXAMINATION: The patient is alert and oriented times self, disoriented. Mood is tangential. Affect is flat. Thought process is concrete. Thought content, no suicidal or homicidal ideation. Cognition is impaired. Insight and judgment is impaired. ASSESSMENT: [place] I Schizophrenia. Dementia. [place] II Deferred. [place] III Shortness of breath. [place] IV Low. [place] V 20. PLAN: 1. The patient was on Zyprexa 10 mg b.i.d. which will be continued. 2. Depakote 250 mg t.i.d. 3. Hold the medication if the patient is sedated or Kiana Hernandez M.D. DR: Jose Manuel JOB#: [id number] CC:
--- NOTE | 2019-08-03 16:45 | Consultation ---
DATE OF CONSULTATION: 08/03/2019 INFECTIOUS DISEASE CONSULTATION CONSULTING PHYSICIAN: Lei Chan M.D. PRIMARY ATTENDING PHYSICIAN: Dani Perera M.D., covered by Dr. Escobar. REASON FOR CONSULTATION: COPD exacerbation. HISTORY OF PRESENT ILLNESS: This is a 78-year-old white female admitted yesterday from [facility] because of shortness of breath and desaturation. The patient was put on BiPAP and admitted to ICU. She has history of COPD and had a previous admission in June of 2019 because of COPD exacerbation. There was no leukocytosis or fever at the time of admission. PAST MEDICAL HISTORY: Significant for COPD, hyperlipidemia, hypothyroidism, dementia, obesity, and schizoaffective disorder. ALLERGIES: Allergic to lithium. MEDICATIONS: Atorvastatin, amantadine, aspirin, Depakote, Lovenox, Levaquin, Zyprexa, Pepcid, levothyroxine, sodium chloride, guaifenesin, albuterol and ipratropium inhaler, methylprednisone, clonidine, Colace, bisacodyl, and sodium phosphate enema. SOCIAL HISTORY: assisted resident, has a public guardian. No other history obtainable by the patient. PHYSICAL EXAMINATION: VITAL SIGNS: Temperature 97.6, pulse 63, and blood pressure 140/52. GENERAL APPEARANCE: No acute distress. Obese. HEAD AND NECK: getting oxygen by nasal cannula. HEART: Bradycardia. LUNGS: Few rhonchi. Decreased breathing sounds. ABDOMEN: Soft, nontender. EXTREMITIES: No edema. LABORATORY DATA: WBC 6.1, hemoglobin 10.8, hematocrit 31.7, and platelets 166,000. Sodium 136, potassium 4.5, chloride 99, bicarbonate 20, BUN 22, creatinine 0.9. Glucose . TSH is high 17.6. Free T4 is low 0.33. Blood gas showed O2 saturation of 88.5, pCO2 54.9, pO2 60.9. Chest x-ray showed interstitial congestion, cardiomegaly. Interstitial congestion was less severe than previous x-ray on 07/01/2019. IMPRESSION: COPD exacerbation. The patient does not look septic. She has hypoxemic and hypercapnic respiratory failure, hyperlipidemia, hypothyroidism, Parkinson disease, dementia, obesity, schizoaffective disorder, and anemia. RECOMMENDATION: Continue with Levaquin. We will follow up the cultures. So far, influenza A and B tests are negative. At the end of my exam, I thank Dr. Perera and Dr. Escobar for involving me in the care of this patient. Lei Chan M.D. DR: ALBERTO JOB#: [id number] CC: ALKA
--- NOTE | 2019-08-03 16:45 | NUR ---
NURSE NOTES: Patient repositined and spounge bath provided, tolerating 2L/min nasal cannula,
[2019-08-03] MEDS ORDERED: ATORVASTATIN CA10 MG ORAL (18:51)
[2019-08-03] MEDS ORDERED: DULCOLAX10 MG RC (18:57)
[2019-08-03] MEDS ORDERED: DUONEB 0.5-3(2.53 ML HHN (18:57)
--- NOTE | 2019-08-03 19:07 | NUR ---
HAND-OFF: Report given to DARREL Singer.
--- NOTE | 2019-08-03 19:34 | NUR ---
NURSE NOTES: PATIENT ALERT, ORIENTED X2, DENIED PAIN OR SOB, RESPIRATION REGULAR, O2 SATURATION 95% NOTED ON O2 2 LPM VIA NC, NO COUGH SIGN, HEART RATE 70'S/MIN, SINUS RHYTHM, ABDOMEN SOFT, VOIDED, WITH PURE WICK SUCTION , YELLOW URINE OUTED, DRIED SKIN, NO SKIN TEAR, PERIPHERAL LINE TO LEFT AC 20G, INTACT AND PATENT, ONGOING IV FLUID NS AT 100ML/HR, MADE LOWER BED POSITION, ON BED ALARM AND LOCKED, PROVIDED CALL LIGHT WITHIN REACH, WILL CONTINUE TO MONITOR.
--- NOTE | 2019-08-03 20:15 | NUR ---
NURSE NOTES: Received from DARREL Liu 78 y.o female pt with DX SOB , Hypoxia Dyspnea.On 02 at 2l/NC AT THIS TIME. 02 SAT >95%. pT confused and disoriented, attemting to get out of bed so many times. Adviced not to get out of bed Siderails up x3. Bed alarms was on. Call light within reach. Placed on fall precautions. Padded siderails was placed . For seizure precautions Will continue to monitor.
--- NOTE | 2019-08-03 20:27 | NUR ---
HAND-OFF: Report given to DARREL SOLOMON.
--- NOTE | 2019-08-03 21:00 | NUR ---
NURSE NOTES: Pt continuously non compliant inspite of so many explaination, , Notify Dr Guadalupe with order to apply Bilateral soft wrist restraint for safety. IVF NS at 100ml/hr infusing well per left AC, Site with blood stained but patent.-Iv site cont observed,
--- NOTE | 2019-08-03 21:30 | NUR ---
NURSE NOTES: Pt was placed on bIPAP 15/5 28% fio2, Pt tolerating well at this time.
--- NOTE | 2019-08-03 22:20 | NUR ---
NURSE NOTES: Endorsed to Ioana ROJO for cotinuiy of care
--- NOTE | 2019-08-03 22:20 | NUR ---
NURSE NOTES: Endorsement received from DARREL Mars for continuity of care. Patient awake, confused. On C02 monitorin mmHg at this time. On BiPAP 15/5 28%. With left AC g20, ongoing NS 100ml/hr. Bilateral soft wrists restraints present. Peripheral pulses present, skin is warm and dry to touch. Head of bed elevated. Bed locked and in low position. Bed alarm on. Call light within reach.
[2019-08-04] VITALS: BP 134/47
[2019-08-04 04:00] VITALS: BP 150/66
--- NOTE | 2019-08-04 05:00 | NUR ---
NURSE NOTES: Bed bath, change of linens done.
--- NOTE | 2019-08-04 05:59 | NUR ---
NURSE NOTES: Troponin 0.107, MD not called due to result is trending down.
--- NOTE | 2019-08-04 07:09 | NUR ---
HAND-OFF: Report given to DARREL Melgar.
--- NOTE | 2019-08-04 07:10 | NUR ---
NURSE NOTES: Received patient from Ioana RN. Patient is awake and confused. Receiving oxygen via nasal cannula at 2L/min, O2 Saturation at 100%. Sinus Rhythm on the heart monitor, HR 75. IV site is Left AC 20g intact and asymptomatic, receiving NS at 100cc/hr. Purewick is patent and intact. Bed is locked, placed in lowest position, side rails up x3, bed alarm on, call light within reach. Will continue to monitor.
[2019-08-04 08:00] VITALS: BP 132/76
[2019-08-04] MEDS: Depakote ER 250mg tab ORAL SCH ×3 (08:26→18:06)
[2019-08-04] MEDS: OLANZapine 10mg tab ORAL SCH ×2 (08:26→18:06)
[2019-08-04] MEDS: Amantadine 100mg cap ORAL SCH (08:26)
[2019-08-04] MEDS: Enoxaparin 60mg Inj SUBQ SCH (08:28)
[2019-08-04 12:00] VITALS: BP 142/56
--- NOTE | 2019-08-04 12:18 | NUR ---
NURSE NOTES: Patient is resting comfortably in bed, remains confused. Denies any pain. Will continue to monitor.
--- NOTE | 2019-08-04 12:52 | Pulmonology Progress Note ---
Assessment/Plan Assessment/Plan ASSESSMENT AND PLAN: 1. Elevated troponin. 2. Bradycardia, 3. Hyperlipidemia, on Lipitor. 4. Desaturation, possible pneumonia, on Levaquin and Solu-Medrol. 5. History of Parkinson disease. 6. Questionable COPD 7. KAT? Agree with steroids and abx BiPAP q HS and prn only Continue O2 Transfer to tele David Myers M.D. Subjective Interval Events: Doing better; on nasal O2 now; was on BiPAP last night Constitutional: Reports: no symptoms HEENT: Repors: no symptoms Respiratory: Reports: no symptoms Cardiovascular: Reports: no symptoms Gastrointestinal/Abdominal: Reports: no symptoms Allergies: Coded Allergies: LITHIUM (Verified Allergy, Unknown, 02/07/19) Objective Last 24 Hour Vital Signs Date Time Temp Pulse Resp B/P (MAP) Pulse Ox O2 Delivery O2 Flow Rate FiO2 08/04/19 09:51 98 Nasal Cannula 2.0 28 08/04/19 08:03 71 08/04/19 08:00 2.0 08/04/19 08:00 Bi-pap 08/04/19 08:00 98.3 72 27 132/76 (94) 99 08/04/19 05:14 68 17 99 30 08/04/19 04:00 30 08/04/19 04:00 97.8 70 30 150/66 (94) 100 08/04/19 04:00 Bi-pap 08/04/19 04:00 75 08/04/19 03:02 76 16 99 30 08/04/19 00:55 64 16 95 30 08/04/19 00:00 Bi-pap 08/04/19 00:00 97.9 62 29 134/47 (76) 97 08/04/19 00:00 30 08/04/19 00:00 68 08/03/19 22:55 65 19 99 30 08/03/19 22:00 64 25 128/39 (68) 95 08/03/19 21:27 66 19 95 30 08/03/19 21:00 83 19 139/41 (73) 96 08/03/19 20:00 97.5 80 21 148/64 (92) 97 08/03/19 20:00 82 08/03/19 20:00 2.0 08/03/19 20:00 Nasal Cannula 2.0 08/03/19 19:21 97 Nasal Cannula 2.0 28 08/03/19 16:00 2.0 08/03/19 16:00 97.4 73 20 135/63 (87) 91 08/03/19 16:00 74 08/03/19 15:57 Nasal Cannula 2.0 08/03/19 13:08 98 08/03/19 13:08 98 Nasal Cannula 2.0 28 Intake and Output 08/03/19 08/04/19 19:00 07:00 Intake Total 2700 ml 800 ml Output Total 500 ml 300 ml Balance 2200 ml 500 ml Intake Oral 1600 ml IV Total 1100 ml 800 ml Output Urine Total 500 ml 300 ml # Voids 5 General Appearance: no acute distress HEENT: normocephalic Respiratory/Chest: chest wall non-tender Cardiovascular: normal peripheral pulses Abdomen: normal bowel sounds Microbiology Date/Time Source Procedure Growth Status 08/02/19 12:00 Blood Blood Culture - Preliminary NO GROWTH AFTER 24 HOURS Resulted 08/02/19 11:45 Blood Blood Culture - Preliminary NO GROWTH AFTER 24 HOURS Resulted 08/02/19 12:37 Nasal Nares - Final Complete 08/02/19 12:37 Nasal Nares - Final Complete 08/02/19 17:57 Rectum Received Laboratory Tests 08/03/19 19:00: Troponin I 0.066H 08/04/19 03:30: Troponin I 0.107H Current Medications Medications (Trade) Dose Ordered Sig/Angie Route PRN Reason Start Time Stop Time Status Last Admin Dose Admin Albuterol/ Ipratropium (Albuterol/ Ipratropium) 3 ml Q4HRT PRN HHN Shortness of Breath 08/03/19 01:45 08/08/19 01:44 Amantadine HCl (Symmetrel) 100 mg DAILY ORAL 08/03/19 09:00 09/02/19 08:59 08/04/19 08:26 Aspirin (ASA) 325 mg DAILY ORAL 08/03/19 09:00 09/02/19 08:59 08/04/19 08:27 Atorvastatin Calcium (Lipitor) 10 mg BEDTIME ORAL 08/03/19 21:00 09/02/19 20:59 08/03/19 21:49 Bisacodyl (Dulcolax) 10 mg DAILYPRN PRN RECTAL Constipation 08/03/19 01:15 09/02/19 01:14 Clonidine HCl (Catapres Tab) 0.1 mg Q6H PRN ORAL For High Blood Pressure 08/03/19 01:15 09/02/19 01:14 Divalproex Sodium (Depakote ER) 250 mg TID ORAL 08/03/19 09:00 09/02/19 08:59 08/04/19 08:26 Docusate Sodium (Colace) 100 mg BID PRN ORAL Constipation 08/03/19 01:15 09/02/19 01:14 Enoxaparin Sodium (Lovenox) 40 mg Q24H SUBQ 08/05/19 09:00 09/04/19 08:59 Famotidine (Pepcid) 20 mg DAILY ORAL 08/03/19 09:00 09/02/19 08:59 08/04/19 08:27 Guaifenesin (Robitussin) 100 mg Q4H PRN ORAL For Cough 08/03/19 01:45 09/02/19 01:44 Levofloxacin (Levaquin) 750 mg Q48H ORAL 08/03/19 09:00 08/10/19 08:59 08/03/19 10:04 Levothyroxine Sodium (Synthroid) 150 mcg DAILY@0630 ORAL 08/03/19 06:30 09/02/19 06:29 08/04/19 05:21 Nitroglycerin (Ntg) 0.4 mg Q5MIN X 3 DOSES PRN SL CHEST PAIN 08/03/19 01:45 09/02/19 01:44 Olanzapine (ZyPREXA) 10 mg BID ORAL 08/03/19 09:00 09/02/19 08:59 08/04/19 08:26 Ondansetron HCl (Zofran) 4 mg Q4H PRN ORAL Nausea & Vomiting 08/03/19 01:45 09/02/19 01:44 Sodium Chloride 1,000 ml @ 100 mls/hr Q10H IV 08/03/19 02:00 09/02/19 01:59 08/04/19 08:13 Sodium Phosphate (Fleet's Sodium Phosl Enema) 133 ml DAILY PRN RECTAL Constipation 08/03/19 01:15 09/02/19 01:14 Sincere Myers MD Aug 04, 2019 12:52
--- NOTE | 2019-08-04 13:05 | NUR ---
NURSE NOTES: Patient seen and assessed by Dr. Davies. Orders received.
--- NOTE | 2019-08-04 13:13 | Cardiac Electrophysiology PN ---
Assessment/Plan Assessment/Plan 1. Elevated troponin.Levels are flat and no CP. Refused echo. Despite normal renal function. BNP is also 8000. 2. Bradycardia, could be due to hypothyroidism. TSH is more than 17 and T4 is only 0.3. The patient already on Synthroid 150 mcg daily. 3. Hyperlipidemia, on Lipitor. 4. Desaturation, possible pneumonia, on Levaquin and Solu-Medrol. 5. History of Parkinson disease. Transfer to Tele Subjective Subjective Alert in NAD. No CP or SOB Objective Last 24 Hour Vital Signs Date Time Temp Pulse Resp B/P (MAP) Pulse Ox O2 Delivery O2 Flow Rate FiO2 08/04/19 12:00 98.1 73 28 142/56 (84) 99 08/04/19 12:00 Bi-pap 08/04/19 12:00 2.0 08/04/19 09:51 98 Nasal Cannula 2.0 28 08/04/19 08:03 71 08/04/19 08:00 2.0 08/04/19 08:00 Bi-pap 08/04/19 08:00 98.3 72 27 132/76 (94) 99 08/04/19 05:14 68 17 99 30 08/04/19 04:00 30 08/04/19 04:00 97.8 70 30 150/66 (94) 100 08/04/19 04:00 Bi-pap 08/04/19 04:00 75 08/04/19 03:02 76 16 99 30 08/04/19 00:55 64 16 95 30 08/04/19 00:00 Bi-pap 08/04/19 00:00 97.9 62 29 134/47 (76) 97 08/04/19 00:00 30 08/04/19 00:00 68 08/03/19 22:55 65 19 99 30 08/03/19 22:00 64 25 128/39 (68) 95 08/03/19 21:27 66 19 95 30 08/03/19 21:00 83 19 139/41 (73) 96 08/03/19 20:00 97.5 80 21 148/64 (92) 97 08/03/19 20:00 82 08/03/19 20:00 2.0 08/03/19 20:00 Nasal Cannula 2.0 08/03/19 19:21 97 Nasal Cannula 2.0 28 08/03/19 16:00 2.0 08/03/19 16:00 97.4 73 20 135/63 (87) 91 08/03/19 16:00 74 08/03/19 15:57 Nasal Cannula 2.0 Intake and Output 08/03/19 08/04/19 19:00 07:00 Intake Total 2700 ml 800 ml Output Total 500 ml 300 ml Balance 2200 ml 500 ml Intake Oral 1600 ml IV Total 1100 ml 800 ml Output Urine Total 500 ml 300 ml # Voids 5 Laboratory Tests Test 08/03/19 19:00 08/04/19 03:30 Troponin I 0.066 ng/mL (0.000-0.056) 0.107 ng/mL (0.000-0.056) Microbiology Date/Time Source Procedure Growth Status 08/02/19 12:00 Blood Blood Culture - Preliminary NO GROWTH AFTER 24 HOURS Resulted 08/02/19 11:45 Blood Blood Culture - Preliminary NO GROWTH AFTER 24 HOURS Resulted 08/02/19 12:37 Nasal Nares - Final Complete 08/02/19 12:37 Nasal Nares - Final Complete 08/02/19 17:57 Rectum Received Objective HEAD AND NECK: Showed no JVD or carotid bruits. LUNGS: Clear. CARDIOVASCULAR: Shows regular S1 and S2 with no gallop or murmur. ABDOMEN: Soft. EXTREMITIES: There is no pitting edema. Cameron Davies MD Aug 04, 2019 13:13
--- NOTE | 2019-08-04 13:31 | NUR ---
NURSE NOTES: Patient is eating lunch in bed with nurse assistance. Patient is very confused. Will continue to monitor.
[2019-08-04 13:51] LABS: BASOPHILS % (AUTO) 0.5 % (0.0-2.0); HEMATOCRIT 28.4 % (37.0-47.0); HEMOGLOBIN 9.7 G/DL (12.0-16.0); LYMPHOCYTES % (AUTO) 20.3 % (20.0-45.0); MEAN CORPUSCULAR VOLUME 96 FL (80-99); NEUTROPHILS % (AUTO) 71.2 % (45.0-75.0); PLATELET COUNT 166 K/UL (150-450); RED BLOOD COUNT 2.95 M/UL (4.20-5.40); RED CELL DISTRIBUTION WIDTH 13.1 % (11.6-14.8); WHITE BLOOD COUNT 7.7 K/UL (4.8-10.8)
[2019-08-04 14:03] LABS: ANION GAP 7 mmol/L (5-15); BLOOD UREA NITROGEN 23 mg/dL (7-18); CALCIUM 8.3 MG/DL (8.5-10.1); CARBON DIOXIDE 31 MMOL/L (21-32); CHLORIDE 106 MMOL/L (98-107); POTASSIUM 4.3 MMOL/L (3.5-5.1); SODIUM 144 MMOL/L (136-145)
[2019-08-04 16:00] VITALS: BP 136/51
--- NOTE | 2019-08-04 16:51 | NUR ---
NURSE NOTES: Gave bed bath to patient, purewick malfunctioned and bed was wet. Changed sheets and beddings, new Purewick in place. Patient tolerated well, denies any pain, no signs of acute distress. Will continue to monitor.
--- NOTE | 2019-08-04 18:25 | NUR ---
NURSE NOTES: Patient showing signs of sundowning. When nurse entered the room, patient was calm and relaxed. Then once attempting to feed patient dinner, patient became aggressive and started shouting and requesting for "the manager filter of this place!" Will continue to monitor
--- NOTE | 2019-08-04 19:00 | NUR ---
NURSE NOTES: Addendum: 08/04/19 at 2241 by Dalia Garcia RN wrong time
--- NOTE | 2019-08-04 19:29 | NUR ---
TRANSFER TO FLOOR: Patient transferred to SDU, per Dr. Myers. Report given to Krishna RN. Belongings and medications given to oncoming RN. Family and or S/O informed of transfer.
--- NOTE | 2019-08-04 19:30 | NUR ---
NURSE NOTES: Report received from DARREL Melgar. Belonging checked with RN. Observed pt lying in the bed, confused, A/O x1-2, resistance to care noted. SR on athletic monitor. On 2L NC with no sob noted. IV on L AC 20G, running NS at 100cc/hr. Purewick in placed. Soft bilateral wrists restraints noted, no distress. Bed in the lowest position. Side rails up x3. Bed alarm on. Call light within reach. Will continue to monitor.
[2019-08-04] MEDS ORDERED: Docusate 100mg cap ORAL PRN (19:40)
[2019-08-04] MEDS ORDERED: Fleet's Enema 133ml RECTAL PRN (19:40)
[2019-08-04] MEDS ORDERED: guaiFENesin 100mg/5ml Liq ud ORAL PRN (19:40)
[2019-08-04] MEDS ORDERED: Albuterol/Ipratropium 3ml neb HHN PRN (19:40)
[2019-08-04] MEDS ORDERED: Nitroglycerin Subl 0.4mg tab SL PRN (19:45)
[2019-08-04 20:00] VITALS: BP 128/62
[2019-08-04] MEDS ORDERED: Enoxaparin 40mg Inj SUBQ SCH (21:00)
--- NOTE | 2019-08-04 22:32 | NUR ---
NURSE NOTES: pt refused to put bipap on, explained benefits and risks, and still refused. On 2L NC, sat on 96%, no acute distress noted at this time. Will continue to monitor.
[2019-08-05] VITALS: BP 140/76
--- NOTE | 2019-08-05 01:52 | Progress Note ---
DATE: 08/04/2019 SUBJECTIVE: The patient is the same. Waxing and waning consciousness, disorganized. Poor insight. Compliant with medication. MENTAL STATUS EXAMINATION: The patient is alert and oriented times self. Mood is anxious and agitated. Affect is flat. Thought process is concrete. Thought content, no suicidal or homicidal ideation. Cognition is impaired. ASSESSMENT: 1. Schizophrenia. 2. Rule out acute encephalopathy. PLAN: 1. We will continue current psychotropic medications. 2. Provide the patient with reality orientation and supportive therapy. Kiana Hernandez M.D. DR: PAULETTE JOB#: [id number] CC:
--- NOTE | 2019-08-05 03:17 | NUR ---
RESPIRATORY NOTE: Pt placed on BiPAP for nightly use. Pt now on BiPAP 15/5, backup rate 16, 30%. Pt on a Facial mask, skin intact, no redness/breakdowns noted. Pt refuses to wear foam tape despite telling her its pros & cons, she states it irritates her skin. Pt is alert/awake, follows commands. B/S brendan. clear/diminished, nonproductive cough. BiPAP plugged into red outlet, alarms on & audible. Pt in no apparent distress at this time. Will continue to monitor pt.
[2019-08-05 04:00] VITALS: BP 148/64
--- NOTE | 2019-08-05 05:46 | NUR ---
NURSE NOTES: pt refused po med, explained risks and benefits, and still refused. Pt on bipap 25/10, 30%, saturating at 99%. No distress noted at this time. Will continue to monitor.
--- NOTE | 2019-08-05 07:24 | NUR ---
HAND-OFF: Report given to DARREL Soto.
[2019-08-05 08:00] VITALS: BP 152/60
--- NOTE | 2019-08-05 08:25 | General Progress Note ---
Assessment/Plan Assessment/Plan: Covering Covering for Dr. 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 ( combination of moderate aortic regurgitation and severe mitral regurgitation) --> diuresis as per cards # Severe ascending aortic dilatation --> per cards, Dr Davies # Hypertension # Parkinson disease # Hyperlipidemia # Hypothyroidism # Dementia # Obesity # Schizophrenia --> as per [facility] # Dvt ppx lovenox sq Appreciate wireless sales consultant care and alexei Rn Subjective Constitutional: Denies: no symptoms, chills, diaphoresis, fever, malaise, weakness, other HEENT: Denies: no symptoms, eye pain, blurred vision, tearing, double vision, ear pain, ear discharge, nose pain, nose congestion, throat pain, throat swelling, mouth pain, mouth swelling, other Cardiovascular: Denies: no symptoms, chest pain, edema, irregular heart rate, lightheadedness, palpitations, syncope, other Respiratory: Denies: no symptoms, cough, orthopnea, shortness of breath, SOB with excertion, SOB at rest, sputum, stridor, wheezing, other Gastrointestinal/Abdominal: Denies: no symptoms, abdomen distended, abdominal pain, black stools, tarry stools, blood in stool, constipated, diarrhea, difficulty swallowing, nausea, poor appetite, poor fluid intake, rectal bleeding , vomiting, other Genitourinary: Denies: no symptoms, burning, discharge, frequency, flank pain, hematuria, incontinence, pain, urgency, other Neurologic/Psychiatric: Denies: no symptoms, anxiety, depressed, emotional problems, headache, numbness, paresthesia, pre-existing deficit, seizure, tingling, tremors, weakness, other Endocrine: Denies: no symptoms, excessive sweating, flushing, intolerance to cold, intolerance to heat, increased hunger, increased thirst, increased urine, unexplained weight gain, unexplained weight loss, other Allergies: Coded Allergies: LITHIUM (Verified Allergy, Unknown, 02/07/19) Subjective 08/05: refusing certain medications, is on bipap, no bleeding no night sweats Objective Last 24 Hour Vital Signs Date Time Temp Pulse Resp B/P (MAP) Pulse Ox O2 Delivery O2 Flow Rate FiO2 08/05/19 06:45 100 Bi-Pap 30 08/05/19 05:10 56 16 99 30 08/05/19 04:00 97.8 74 20 148/64 (92) 98 08/05/19 04:00 30 08/05/19 04:00 67 08/05/19 03:15 61 17 99 30 08/05/19 00:00 2.0 08/05/19 00:00 73 08/05/19 00:00 97.8 88 20 140/76 (97) 98 08/04/19 20:00 2.0 08/04/19 20:00 73 08/04/19 20:00 97.8 71 26 128/62 (84) 96 08/04/19 20:00 Bi-pap 08/04/19 18:43 97 Nasal Cannula 2.0 28 08/04/19 16:00 98.0 69 29 136/51 (79) 99 08/04/19 16:00 Bi-pap 08/04/19 16:00 78 08/04/19 16:00 2.0 08/04/19 12:00 98.1 73 28 142/56 (84) 99 08/04/19 12:00 Bi-pap 08/04/19 12:00 70 08/04/19 12:00 2.0 08/04/19 09:51 98 Nasal Cannula 2.0 28 Intake and Output 08/04/19 08/05/19 19:00 07:00 Intake Total 878.333 ml 1020 ml Output Total 1800 ml 1200 ml Balance -921.667 ml -180 ml Intake Oral 120 ml IV Total 878.333 ml 900 ml Output Urine Total 1800 ml 1200 ml Laboratory Tests 08/04/19 13:28: White Blood Count 7.7, Red Blood Count 2.95L, Hemoglobin 9.7L, Hematocrit 28.4L , Mean Corpuscular Volume 96, Mean Corpuscular Hemoglobin 32.9H, Mean Corpuscular Hemoglobin Concent 34.2, Red Cell Distribution Width 13.1, Platelet Count 166, Mean Platelet Volume 6.0L, Neutrophils (%) (Auto) 71.2, Lymphocytes ( %) (Auto) 20.3, Monocytes (%) (Auto) 8.0, Eosinophils (%) (Auto) 0.0, Basophils (%) (Auto) 0.5, Sodium Level 144, Potassium Level 4.3, Chloride Level 106, Carbon Dioxide Level 31, Anion Gap 7, Blood Urea Nitrogen 23H, Creatinine 1.0, Estimat Glomerular Filtration Rate 53.5, Glucose Level 90, Calcium Level 8.3L Height (Feet): 5 Height (Inches): 6.00 Weight (Pounds): 205 Objective : Vitals: reviewed General: NAD HEENT: nc, at Neck: supple Chest: decreased breath sounds bilaterally Cardiovascular: RRR, no s3, s4 Abdomen: soft, nontender, nd Extremities: no cce, normal range of motion Neuro: nonverbal Frank Escobar MD Aug 05, 2019 08:25
--- NOTE | 2019-08-05 08:30 | NUR ---
NURSE NOTES: Report received from Brittany Macias RN.Pt awake,confused with bilat soft wrist restraints in placed ,noted no resp distress,Bipap off,0n 2L NC at this time,no signs of pain or discomfort,SR on the monitor,skin warm and dry with IV to LAC intact ,IVF NS running at 100 ml/hr,SR up x2 HOB elevated,bed lock in lowest position will continue with plans of care.
[2019-08-05] MEDS ORDERED: Levofloxacin 750mg tab ORAL SCH (09:00)
[2019-08-05] MEDS ORDERED: Amantadine 100mg cap ORAL SCH (09:00)
[2019-08-05] MEDS ORDERED: Enoxaparin 40mg Inj SUBQ SCH ×2 (09:00)
--- NOTE | 2019-08-05 09:21 | Infectious Diseases Prog Note ---
Assessment/Plan Assessment/Plan IMPRESSION: COPD exacerbation. Hypoxemic and hypercapnic respiratory failure, hyperlipidemia, hypothyroidism, Parkinson disease, dementia, obesity, schizoaffective disorder, anemia. RECOMMENDATION: Continue with Levaquin. We will follow up the cultures Subjective ROS Limited/Unobtainable: Yes Constitutional: Denies: fever Allergies: Coded Allergies: LITHIUM (Verified Allergy, Unknown, 02/07/19) Objective Vital Signs Last 24 Hour Vital Signs Date Time Temp Pulse Resp B/P (MAP) Pulse Ox O2 Delivery O2 Flow Rate FiO2 08/05/19 08:00 96.0 75 20 152/60 (90) 96 08/05/19 07:30 65 17 100 30 08/05/19 06:45 100 Bi-Pap 30 08/05/19 05:10 56 16 99 30 08/05/19 04:00 97.8 74 20 148/64 (92) 98 08/05/19 04:00 30 08/05/19 04:00 67 08/05/19 03:15 61 17 99 30 08/05/19 00:00 2.0 08/05/19 00:00 73 08/05/19 00:00 97.8 88 20 140/76 (97) 98 08/04/19 20:00 2.0 08/04/19 20:00 73 08/04/19 20:00 97.8 71 26 128/62 (84) 96 08/04/19 20:00 Bi-pap 08/04/19 18:43 97 Nasal Cannula 2.0 28 08/04/19 16:00 98.0 69 29 136/51 (79) 99 08/04/19 16:00 Bi-pap 08/04/19 16:00 78 08/04/19 16:00 2.0 08/04/19 12:00 98.1 73 28 142/56 (84) 99 08/04/19 12:00 Bi-pap 08/04/19 12:00 70 08/04/19 12:00 2.0 08/04/19 09:51 98 Nasal Cannula 2.0 28 Height (Feet): 5 Height (Inches): 6.00 Weight (Pounds): 205 General Appearance: no acute distress HEENT: mucous membranes moist Respiratory/Chest: other - fewe rhonchi Cardiovascular: normal rate Abdomen: soft, non tender Extremities: no edema Neurologic/Psychiatric: disoriented Microbiology Date/Time Source Procedure Growth Status 08/02/19 12:00 Blood Blood Culture - Preliminary NO GROWTH AFTER 48 HOURS Resulted 08/02/19 11:45 Blood Blood Culture - Preliminary NO GROWTH AFTER 48 HOURS Resulted 08/02/19 12:37 Nasal Nares - Final Complete 08/02/19 12:37 Nasal Nares - Final Complete 08/02/19 17:57 Rectum VRE Culture - Final NO VANCOMYCIN RESISTANT ENTEROCOCCUS ... Complete 08/02/19 17:54 Rectum - Final NO CARBAPENEM-RESISTANT ENTEROBACTERI... Complete Laboratory Tests Test 08/04/19 13:28 White Blood Count 7.7 K/UL (4.8-10.8) Red Blood Count 2.95 M/UL (4.20-5.40) L Hemoglobin 9.7 G/DL (12.0-16.0) L Hematocrit 28.4 % (37.0-47.0) L Mean Corpuscular Volume 96 FL (80-99) Mean Corpuscular Hemoglobin 32.9 PG (27.0-31.0) H Mean Corpuscular Hemoglobin Concent 34.2 G/DL (32.0-36.0) Red Cell Distribution Width 13.1 % (11.6-14.8) Platelet Count 166 K/UL (150-450) Mean Platelet Volume 6.0 FL (6.5-10.1) L Neutrophils (%) (Auto) 71.2 % (45.0-75.0) Lymphocytes (%) (Auto) 20.3 % (20.0-45.0) Monocytes (%) (Auto) 8.0 % (1.0-10.0) Eosinophils (%) (Auto) 0.0 % (0.0-3.0) Basophils (%) (Auto) 0.5 % (0.0-2.0) Sodium Level 144 MMOL/L (136-145) Potassium Level 4.3 MMOL/L (3.5-5.1) Chloride Level 106 MMOL/L (98-107) Carbon Dioxide Level 31 MMOL/L (21-32) Anion Gap 7 mmol/L (5-15) Blood Urea Nitrogen 23 mg/dL (7-18) H Creatinine 1.0 MG/DL (0.55-1.30) Estimat Glomerular Filtration Rate 53.5 mL/min (>60) Glucose Level 90 MG/DL (74-106) Calcium Level 8.3 MG/DL (8.5-10.1) L Current Medications Medications (Trade) Dose Ordered Sig/Angie Route PRN Reason Start Time Stop Time Status Last Admin Dose Admin Albuterol/ Ipratropium (Albuterol/ Ipratropium) 3 ml Q4H PRN HHN Shortness of Breath 08/04/19 19:40 08/09/19 19:39 Amantadine HCl (Symmetrel) 100 mg DAILY ORAL 08/05/19 09:00 09/02/19 08:59 Aspirin (ASA) 325 mg DAILY ORAL 08/05/19 09:00 09/02/19 08:59 Atorvastatin Calcium (Lipitor) 10 mg BEDTIME ORAL 08/04/19 21:00 09/02/19 20:59 08/04/19 21:01 Bisacodyl (Dulcolax) 10 mg DAILYPRN PRN RECTAL Constipation 08/04/19 19:39 09/03/19 19:38 Clonidine HCl (Catapres Tab) 0.1 mg Q6H PRN ORAL For High Blood Pressure 08/04/19 19:39 09/03/19 19:38 Divalproex Sodium (Depakote ER) 250 mg TID ORAL 08/05/19 09:00 09/02/19 08:59 Docusate Sodium (Colace) 100 mg BIDPRN PRN ORAL Constipation 08/04/19 19:40 09/03/19 19:39 Enoxaparin Sodium (Lovenox) 40 mg Q24H SUBQ 08/05/19 09:00 09/04/19 08:59 Famotidine (Pepcid) 20 mg DAILY ORAL 08/05/19 09:00 09/02/19 08:59 Guaifenesin (Robitussin) 100 mg Q4H PRN ORAL For Cough 08/04/19 19:40 09/03/19 19:39 Levofloxacin (Levaquin) 750 mg Q48H ORAL 08/05/19 09:00 08/10/19 08:59 Levothyroxine Sodium (Synthroid) 150 mcg DAILY@0630 ORAL 08/05/19 06:30 09/02/19 06:29 Nitroglycerin (Ntg) 0.4 mg Q5MIN X 3 DOSES PRN SL CHEST PAIN 08/04/19 19:45 09/02/19 01:44 Olanzapine (ZyPREXA) 10 mg BID ORAL 08/05/19 09:00 09/02/19 08:59 Ondansetron HCl (Zofran) 4 mg Q4H PRN ORAL Nausea & Vomiting 08/04/19 19:41 09/03/19 19:40 Sodium Chloride 1,000 ml @ 100 mls/hr Q10H IV 08/04/19 19:39 09/03/19 19:38 08/05/19 05:46 Sodium Phosphate (Fleet's Sodium Phosl Enema) 133 ml DAILYPRN PRN RECTAL Constipation 08/04/19 19:40 09/03/19 19:39 Lei Chan MD Aug 05, 2019 09:21
[2019-08-05] MEDS: Depakote ER 250mg tab ORAL SCH ×3 (09:26→18:04)
[2019-08-05] MEDS: OLANZapine 10mg tab ORAL SCH ×2 (09:26→18:04)
[2019-08-05 12:00] VITALS: BP 125/56
--- NOTE | 2019-08-05 12:00 | NUR ---
NURSE NOTES: Pt stable no resp distress noted,,combative on and off,bilat soft wrist restraints continue.
--- NOTE | 2019-08-05 15:51 | Pulmonology Progress Note ---
Assessment/Plan Assessment/Plan ASSESSMENT AND PLAN: 1. Elevated troponin. 2. Bradycardia, 3. Hyperlipidemia, on Lipitor. 4. Desaturation, possible pneumonia, on Levaquin and Solu-Medrol. 5. History of Parkinson disease. 6. Questionable COPD 7. KAT? Agree with steroids and abx BiPAP q HS and prn only Continue O2 Transfer to tele David Myers M.D. Subjective Interval Events: none new Constitutional: Reports: no symptoms HEENT: Repors: no symptoms Respiratory: Reports: no symptoms Cardiovascular: Reports: no symptoms Allergies: Coded Allergies: LITHIUM (Verified Allergy, Unknown, 02/07/19) Objective Last 24 Hour Vital Signs Date Time Temp Pulse Resp B/P (MAP) Pulse Ox O2 Delivery O2 Flow Rate FiO2 08/05/19 12:00 98.0 75 20 125/56 (79) 96 08/05/19 12:00 2.0 08/05/19 12:00 76 08/05/19 09:00 Nasal Cannula 2.0 08/05/19 08:00 2.0 08/05/19 08:00 96.0 75 20 152/60 (90) 96 08/05/19 08:00 62 08/05/19 07:30 65 17 100 30 08/05/19 06:45 100 Bi-Pap 30 08/05/19 05:10 56 16 99 30 08/05/19 04:00 97.8 74 20 148/64 (92) 98 08/05/19 04:00 30 08/05/19 04:00 67 08/05/19 03:15 61 17 99 30 08/05/19 00:00 2.0 08/05/19 00:00 73 08/05/19 00:00 97.8 88 20 140/76 (97) 98 08/04/19 20:00 2.0 08/04/19 20:00 73 08/04/19 20:00 97.8 71 26 128/62 (84) 96 08/04/19 20:00 Bi-pap 08/04/19 18:43 97 Nasal Cannula 2.0 28 08/04/19 16:00 98.0 69 29 136/51 (79) 99 08/04/19 16:00 Bi-pap 08/04/19 16:00 78 08/04/19 16:00 2.0 Intake and Output 08/04/19 08/05/19 19:00 07:00 Intake Total 878.333 ml 1020 ml Output Total 1800 ml 1200 ml Balance -921.667 ml -180 ml Intake Oral 120 ml IV Total 878.333 ml 900 ml Output Urine Total 1800 ml 1200 ml General Appearance: no acute distress HEENT: normocephalic Respiratory/Chest: chest wall non-tender, lungs clear Cardiovascular: normal peripheral pulses, normal rate Abdomen: normal bowel sounds Microbiology Date/Time Source Procedure Growth Status 08/02/19 17:57 Nasal Nares MRSA Culture - Final NO METHICILLIN RESISTANT STAPH AUREUS... Complete 08/02/19 17:57 Rectum VRE Culture - Final NO VANCOMYCIN RESISTANT ENTEROCOCCUS ... Complete 08/02/19 17:54 Rectum - Final NO CARBAPENEM-RESISTANT ENTEROBACTERI... Complete Current Medications Medications (Trade) Dose Ordered Sig/Angie Route PRN Reason Start Time Stop Time Status Last Admin Dose Admin Albuterol/ Ipratropium (Albuterol/ Ipratropium) 3 ml Q4H PRN HHN Shortness of Breath 08/04/19 19:40 08/09/19 19:39 Amantadine HCl (Symmetrel) 100 mg DAILY ORAL 08/05/19 09:00 09/02/19 08:59 08/05/19 09:29 Aspirin (ASA) 325 mg DAILY ORAL 08/05/19 09:00 09/02/19 08:59 08/05/19 09:33 Atorvastatin Calcium (Lipitor) 10 mg BEDTIME ORAL 08/04/19 21:00 09/02/19 20:59 08/04/19 21:01 Bisacodyl (Dulcolax) 10 mg DAILYPRN PRN RECTAL Constipation 08/04/19 19:39 09/03/19 19:38 Clonidine HCl (Catapres Tab) 0.1 mg Q6H PRN ORAL For High Blood Pressure 08/04/19 19:39 09/03/19 19:38 Divalproex Sodium (Depakote ER) 250 mg TID ORAL 08/05/19 09:00 09/02/19 08:59 08/05/19 12:51 Docusate Sodium (Colace) 100 mg BIDPRN PRN ORAL Constipation 08/04/19 19:40 09/03/19 19:39 Enoxaparin Sodium (Lovenox) 40 mg Q24H SUBQ 08/05/19 09:00 09/04/19 08:59 08/05/19 09:31 Famotidine (Pepcid) 20 mg DAILY ORAL 08/05/19 09:00 09/02/19 08:59 08/05/19 09:26 Guaifenesin (Robitussin) 100 mg Q4H PRN ORAL For Cough 08/04/19 19:40 09/03/19 19:39 Levofloxacin (Levaquin) 750 mg Q48H ORAL 08/05/19 09:00 08/10/19 08:59 08/05/19 09:29 Levothyroxine Sodium (Synthroid) 150 mcg DAILY@0630 ORAL 08/05/19 06:30 09/02/19 06:29 Nitroglycerin (Ntg) 0.4 mg Q5MIN X 3 DOSES PRN SL CHEST PAIN 08/04/19 19:45 09/02/19 01:44 Olanzapine (ZyPREXA) 10 mg BID ORAL 08/05/19 09:00 09/02/19 08:59 08/05/19 09:26 Ondansetron HCl (Zofran) 4 mg Q4H PRN ORAL Nausea & Vomiting 08/04/19 19:41 09/03/19 19:40 Sodium Chloride 1,000 ml @ 100 mls/hr Q10H IV 08/04/19 19:39 09/03/19 19:38 08/05/19 05:46 Sodium Phosphate (Fleet's Sodium Phosl Enema) 133 ml DAILYPRN PRN RECTAL Constipation 08/04/19 19:40 09/03/19 19:39 Sincere Myers MD Aug 05, 2019 15:51
[2019-08-05 16:00] VITALS: BP 140/70
--- NOTE | 2019-08-05 16:45 | NUR ---
NURSE NOTES: Dr Myers at bedside,transfer orders given.
--- NOTE | 2019-08-05 18:30 | NUR ---
NURSE NOTES: Patient arrived on unit via hospital bed. Stable. Patient is confused. Breathing is even and unlabored. Patient oriented to room, call light, and unit. On oxygen 2L NC. Patient repositioned in bed. Purewick in place. Patient is in bed in locked and lowest position with call light within reach. All needs met at this time. WIll continue to monitor.
--- NOTE | 2019-08-05 18:35 | NUR ---
TRANSFER TO FLOOR: Patient transferred to3E room 310-1 , per bed awake,alert confused with bilat soft wrist restraint in placed.. Report given to EKC RN. Belongings given to receiving RN.
[2019-08-05] MEDS ORDERED: guaiFENesin 100mg/5ml Liq ud ORAL PRN (18:56)
[2019-08-05] MEDS ORDERED: Docusate 100mg cap ORAL PRN (18:56)
[2019-08-05] MEDS ORDERED: Albuterol/Ipratropium 3ml neb HHN PRN (18:56)
[2019-08-05] MEDS ORDERED: Fleet's Enema 133ml RECTAL PRN (18:56)
[2019-08-05] MEDS ORDERED: Nitroglycerin Subl 0.4mg tab SL PRN (19:00)
--- NOTE | 2019-08-05 19:30 | NUR ---
HAND-OFF: Report given to Lola ROJO. Patient is stable.
[2019-08-05 20:00] VITALS: BP 142/61
--- NOTE | 2019-08-05 20:00 | NUR ---
NURSE NOTES: Received patient asleep in bed, easily arousable, confused, pulling off nasal cannula, refusing pulse ox on finger. Otherwise stable. Breathing is even and unlabored. On oxygen 2L NC. Patient repositioned in bed. Purewick in place. Patient is in bed in locked and lowest position with call light within reach. All needs met at this time. Uses the term "bitch" to refer to RN.
[2019-08-06] VITALS (7 sets, daily range): BP systolic 118–140; BP diastolic 55–100
--- NOTE | 2019-08-06 07:30 | NUR ---
NURSE NOTES: Patient is in bed awake and able to follow simple commands. Patient denies pain or SOB. Patient's restraints are in place, CSM assessed, skin is intact. Patient's needs met at this time. Patient is in bed in locked and lowest position with call light within reach. All safety measures provided. Will continue to monitor.
--- NOTE | 2019-08-06 08:30 | Consultation ---
DATE OF CONSULTATION: 08/03/2019 PULMONARY CONSULTATION CONSULTING PHYSICIAN: Sincere Myers M.D. HISTORY OF PRESENT ILLNESS: This is a 78-year-old female with a history of hypertension, hypothyroidism, hyperlipidemia, and Parkinson disease as well as COPD. She was brought to the hospital with desaturation and shortness of breath. The patient 00:23 placed on BiPAP, placed in ICU. At this time, the patient is feeling better. She was seen by Cardiology and Psychiatry. PAST MEDICAL HISTORY: As discussed above. Also, COPD, hypertension, dementia, obesity, and schizoaffective disorder. MEDICATIONS: List of medications reviewed in the current chart and this include amantadine, aspirin, Lipitor, Colace, Catapres, Depakote, DuoNeb, Lovenox, and Robitussin plain. She is also on Levaquin, Solu-Medrol, and Zyprexa. REVIEW OF SYSTEMS: Unreliable. PHYSICAL EXAMINATION: GENERAL: Reveals an obese female. VITAL SIGNS: Blood pressure 130/60, heart rate 01:21, respirations . She is afebrile. HEENT: Unremarkable. LUNGS: Clear breath sounds bilaterally. HEART: Normal heart sounds. ABDOMEN: Soft. EXTREMITIES: There is no edema. LABORATORY TESTING: Shows normal CBC except hemoglobin 10.8. Chemistries are normal. Troponin 0.11, now troponin 0.10. Microbiology so far is negative with negative influenza A and B. X-ray chest was obtained overnight which shows pulmonary edema. IMPRESSION: 1. Pulmonary edema. 2. History of chronic obstructive pulmonary disease. 3. Psychiatric disorder, schizophrenia. DISCUSSION: I suspect the predominant issue is pulmonary edema. I have reviewed Cardiology notes. They note hypothyroidism. Agree with empiric antibiotics. Suggest to obtain echo and diurese. We will follow as datapower consultant. Thank you for the consultation. Sincere Myers M.D. DR: MIMA JOB#: [id number] CC:
[2019-08-06] MEDS ORDERED: Amantadine 100mg cap ORAL SCH (09:00)
[2019-08-06] MEDS ORDERED: Enoxaparin 40mg Inj SUBQ SCH (09:00)
[2019-08-06] MEDS: OLANZapine 10mg tab ORAL SCH ×2 (09:09→17:35)
[2019-08-06] MEDS: Depakote ER 250mg tab ORAL SCH ×3 (09:10→17:35)
--- NOTE | 2019-08-06 09:19 | Hematology/Onc Progress Note ---
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 ( combination of moderate aortic regurgitation and severe mitral regurgitation) --> diuresis as per cards # Severe ascending aortic dilatation --> per Dr Keke campbell # Hypertension # Parkinson disease # Hyperlipidemia # Hypothyroidism # Dementia # Obesity # Sch[facility]ia [facility] # Dvt ppx lovenox sq Appreciate 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[employer] 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 care and alexei Rn Subjective HEENT: Denies: no symptoms, eye pain, blurred vision, tearing, double vision, ear pain, ear discharge, nose pain, nose congestion, throat pain, throat swelling, mouth pain, mouth swelling, other Gastrointestinal/Abdominal: Denies: no symptoms, abdomen distended, abdominal pain, black stools, tarry stools, blood in stool, constipated, diarrhea, difficulty swallowing, nausea, poor appetite, poor fluid intake, rectal bleeding , vomiting, other Genitourinary: Denies: no symptoms, burning, discharge, frequency, flank pain, hematuria, incontinence, pain, urgency, other Neurologic/Psychiatric: Denies: no symptoms, anxiety, depressed, emotional problems, headache, numbness, paresthesia, pre-existing deficit, seizure, tingling, tremors, weakness, other Endocrine: Denies: no symptoms, excessive sweating, flushing, intolerance to cold, intolerance to heat, increased hunger, increased thirst, increased urine, unexplained weight gain, unexplained weight loss, other Hematologic/Lymphatic: Denies: no symptoms, anemia, easy bleeding, easy bruising, adenopathy, other Allergies: Coded Allergies: LITHIUM (Verified Allergy, Unknown, 02/07/19) Subjective 08/05: refusing certain medications, is on bipap, no bleeding no night sweats 08/06: no major events, no bleeding, labs noted, no night sweats Objective Objective Current Medications Medications (Trade) Dose Ordered Sig/Angie Route PRN Reason Start Time Stop Time Status Last Admin Dose Admin Albuterol/ Ipratropium (Albuterol/ Ipratropium) 3 ml Q4H PRN HHN Shortness of Breath 08/05/19 18:56 08/10/19 18:55 Amantadine HCl (Symmetrel) 100 mg DAILY ORAL 08/06/19 09:00 09/02/19 08:59 08/06/19 09:09 Aspirin (ASA) 325 mg DAILY ORAL 08/06/19 09:00 09/02/19 08:59 08/06/19 09:09 Atorvastatin Calcium (Lipitor) 10 mg BEDTIME ORAL 08/05/19 21:00 09/02/19 20:59 08/05/19 21:21 Bisacodyl (Dulcolax) 10 mg DAILYPRN PRN RECTAL Constipation 08/05/19 18:55 09/04/19 18:54 Clonidine HCl (Catapres Tab) 0.1 mg Q6H PRN ORAL For High Blood Pressure 08/05/19 18:55 09/04/19 18:54 Divalproex Sodium (Depakote ER) 250 mg TID ORAL 08/06/19 09:00 09/02/19 08:59 08/06/19 09:10 Docusate Sodium (Colace) 100 mg BIDPRN PRN ORAL Constipation 08/05/19 18:56 09/04/19 18:55 Enoxaparin Sodium (Lovenox) 40 mg Q24H SUBQ 08/06/19 09:00 09/04/19 08:59 08/06/19 09:10 Famotidine (Pepcid) 20 mg DAILY ORAL 08/06/19 09:00 09/02/19 08:59 08/06/19 09:09 Guaifenesin (Robitussin) 100 mg Q4H PRN ORAL For Cough 08/05/19 18:56 09/04/19 18:55 Levofloxacin (Levaquin) 750 mg Q48H ORAL 08/07/19 09:00 08/10/19 08:59 Levothyroxine Sodium (Synthroid) 150 mcg DAILY@0630 ORAL 08/06/19 06:30 09/02/19 06:29 08/06/19 06:14 Nitroglycerin (Ntg) 0.4 mg Q5MIN X 3 DOSES PRN SL CHEST PAIN 08/05/19 19:00 09/02/19 01:44 Olanzapine (ZyPREXA) 10 mg BID ORAL 08/06/19 09:00 09/02/19 08:59 08/06/19 09:09 Ondansetron HCl (Zofran) 4 mg Q4H PRN ORAL Nausea & Vomiting 08/05/19 18:56 09/04/19 18:55 Sodium Chloride 1,000 ml @ 100 mls/hr Q10H IV 08/05/19 18:55 09/04/19 18:54 08/05/19 19:51 Sodium Phosphate (Fleet's Sodium Phosl Enema) 133 ml DAILYPRN PRN RECTAL Constipation 08/05/19 18:56 09/04/19 18:55 Last 24 Hour Vital Signs Date Time Temp Pulse Resp B/P (MAP) Pulse Ox O2 Delivery O2 Flow Rate FiO2 08/06/19 08:56 93 Nasal Cannula 2.0 28 08/06/19 04:49 64 17 98 30 08/06/19 04:00 97.3 69 18 137/55 (82) 95 08/06/19 02:39 63 17 96 30 08/06/19 01:00 72 20 98 30 08/06/19 00:00 97.9 75 18 127/57 (80) 97 08/05/19 22:24 68 18 99 30 08/05/19 22:18 Nasal Cannula 2.0 08/05/19 20:00 97.9 75 18 142/61 (88) 97 08/05/19 19:16 95 Nasal Cannula 2.0 28 08/05/19 16:00 75 08/05/19 16:00 2.0 08/05/19 16:00 97.5 76 20 140/70 (93) 97 08/05/19 12:00 98.0 75 20 125/56 (79) 96 08/05/19 12:00 2.0 08/05/19 12:00 76 08/05/19 09:00 Nasal Cannula 2.0 08/05/19 08:00 2.0 08/05/19 08:00 96.0 75 20 152/60 (90) 96 08/05/19 08:00 62 08/05/19 07:30 65 17 100 30 08/05/19 06:45 100 Bi-Pap 30 08/05/19 05:10 56 16 99 30 08/05/19 04:00 97.8 74 20 148/64 (92) 98 08/05/19 04:00 30 08/05/19 04:00 67 08/05/19 03:15 61 17 99 30 08/05/19 00:00 2.0 08/05/19 00:00 73 08/05/19 00:00 97.8 88 20 140/76 (97) 98 08/04/19 20:00 2.0 08/04/19 20:00 73 08/04/19 20:00 97.8 71 26 128/62 (84) 96 08/04/19 20:00 Bi-pap 08/04/19 18:43 97 Nasal Cannula 2.0 28 08/04/19 16:00 98.0 69 29 136/51 (79) 99 08/04/19 16:00 Bi-pap 08/04/19 16:00 78 08/04/19 16:00 2.0 08/04/19 12:00 98.1 73 28 142/56 (84) 99 08/04/19 12:00 Bi-pap 08/04/19 12:00 70 08/04/19 12:00 2.0 08/04/19 09:51 98 Nasal Cannula 2.0 28 Intake and Output 08/05/19 08/06/19 19:00 07:00 Intake Total 800 ml 100 ml Output Total 350 ml Balance 800 ml -250 ml Intake Oral 100 ml IV Total 800 ml Output Urine Total 350 ml Labs Test 08/03/19 11:27 08/03/19 19:00 08/04/19 03:30 08/04/19 13:28 Troponin I 0.109 ng/mL (0.000-0.056) 0.066 ng/mL (0.000-0.056) 0.107 ng/mL (0.000-0.056) White Blood Count 7.7 K/UL (4.8-10.8) Red Blood Count 2.95 M/UL (4.20-5.40) Hemoglobin 9.7 G/DL (12.0-16.0) Hematocrit 28.4 % (37.0-47.0) Mean Corpuscular Volume 96 FL (80-99) Mean Corpuscular Hemoglobin 32.9 PG (27.0-31.0) Mean Corpuscular Hemoglobin Concent 34.2 G/DL (32.0-36.0) Red Cell Distribution Width 13.1 % (11.6-14.8) Platelet Count 166 K/UL (150-450) Mean Platelet Volume 6.0 FL (6.5-10.1) Neutrophils (%) (Auto) 71.2 % (45.0-75.0) Lymphocytes (%) (Auto) 20.3 % (20.0-45.0) Monocytes (%) (Auto) 8.0 % (1.0-10.0) Eosinophils (%) (Auto) 0.0 % (0.0-3.0) Basophils (%) (Auto) 0.5 % (0.0-2.0) Sodium Level 144 MMOL/L (136-145) Potassium Level 4.3 MMOL/L (3.5-5.1) Chloride Level 106 MMOL/L (98-107) Carbon Dioxide Level 31 MMOL/L (21-32) Anion Gap 7 mmol/L (5-15) Blood Urea Nitrogen 23 mg/dL (7-18) Creatinine 1.0 MG/DL (0.55-1.30) Estimat Glomerular Filtration Rate 53.5 mL/min (>60) Glucose Level 90 MG/DL (74-106) Calcium Level 8.3 MG/DL (8.5-10.1) Height (Feet): 5 Height (Inches): 6.00 Weight (Pounds): 205 Objective Vitals: reviewed General: NAD HEENT: nc, at Neck: supple Chest: decreased breath sounds bilaterally Cardiovascular: RRR, no s3, s4 Abdomen: soft, nontender, nd Extremities: no cce, normal range of motion Neuro: nonverbal Frank Escobar MD Aug 06, 2019 09:19
--- NOTE | 2019-08-06 10:09 | Infectious Diseases Prog Note ---
Assessment/Plan Assessment/Plan IMPRESSION: COPD exacerbation. Hypoxemic and hypercapnic respiratory failure, hyperlipidemia, hypothyroidism, Parkinson disease, dementia, obesity, schizoaffective disorder, anemia. RECOMMENDATION: Continue with Levaquin. Negative cultures so far. Subjective ROS Limited/Unobtainable: Yes Constitutional: Denies: fever Respiratory: Reports: no symptoms Neurologic: Reports: other - on restraint Allergies: Coded Allergies: LITHIUM (Verified Allergy, Unknown, 02/07/19) Objective Vital Signs Last 24 Hour Vital Signs Date Time Temp Pulse Resp B/P (MAP) Pulse Ox O2 Delivery O2 Flow Rate FiO2 08/06/19 08:56 93 Nasal Cannula 2.0 28 08/06/19 04:49 64 17 98 30 08/06/19 04:00 97.3 69 18 137/55 (82) 95 08/06/19 02:39 63 17 96 30 08/06/19 01:00 72 20 98 30 08/06/19 00:00 97.9 75 18 127/57 (80) 97 08/05/19 22:24 68 18 99 30 08/05/19 22:18 Nasal Cannula 2.0 08/05/19 20:00 97.9 75 18 142/61 (88) 97 08/05/19 19:16 95 Nasal Cannula 2.0 28 08/05/19 16:00 75 08/05/19 16:00 2.0 08/05/19 16:00 97.5 76 20 140/70 (93) 97 08/05/19 12:00 98.0 75 20 125/56 (79) 96 08/05/19 12:00 2.0 08/05/19 12:00 76 Height (Feet): 5 Height (Inches): 6.00 Weight (Pounds): 205 General Appearance: no acute distress HEENT: mucous membranes moist Respiratory/Chest: lungs clear, other - oxygen by nasal cannula Cardiovascular: normal rate Abdomen: soft, non tender Extremities: no edema Neurologic/Psychiatric: alert, responsive Current Medications Medications (Trade) Dose Ordered Sig/Angie Route PRN Reason Start Time Stop Time Status Last Admin Dose Admin Albuterol/ Ipratropium (Albuterol/ Ipratropium) 3 ml Q4H PRN HHN Shortness of Breath 08/05/19 18:56 08/10/19 18:55 Amantadine HCl (Symmetrel) 100 mg DAILY ORAL 08/06/19 09:00 09/02/19 08:59 08/06/19 09:09 Aspirin (ASA) 325 mg DAILY ORAL 08/06/19 09:00 09/02/19 08:59 08/06/19 09:09 Atorvastatin Calcium (Lipitor) 10 mg BEDTIME ORAL 08/05/19 21:00 09/02/19 20:59 08/05/19 21:21 Bisacodyl (Dulcolax) 10 mg DAILYPRN PRN RECTAL Constipation 08/05/19 18:55 09/04/19 18:54 Clonidine HCl (Catapres Tab) 0.1 mg Q6H PRN ORAL For High Blood Pressure 08/05/19 18:55 09/04/19 18:54 Divalproex Sodium (Depakote ER) 250 mg TID ORAL 08/06/19 09:00 09/02/19 08:59 08/06/19 09:10 Docusate Sodium (Colace) 100 mg BIDPRN PRN ORAL Constipation 08/05/19 18:56 09/04/19 18:55 Enoxaparin Sodium (Lovenox) 40 mg Q24H SUBQ 08/06/19 09:00 09/04/19 08:59 08/06/19 09:10 Famotidine (Pepcid) 20 mg DAILY ORAL 08/06/19 09:00 09/02/19 08:59 08/06/19 09:09 Guaifenesin (Robitussin) 100 mg Q4H PRN ORAL For Cough 08/05/19 18:56 09/04/19 18:55 Levofloxacin (Levaquin) 750 mg Q48H ORAL 08/07/19 09:00 08/10/19 08:59 Levothyroxine Sodium (Synthroid) 150 mcg DAILY@0630 ORAL 08/06/19 06:30 09/02/19 06:29 08/06/19 06:14 Nitroglycerin (Ntg) 0.4 mg Q5MIN X 3 DOSES PRN SL CHEST PAIN 08/05/19 19:00 09/02/19 01:44 Olanzapine (ZyPREXA) 10 mg BID ORAL 08/06/19 09:00 09/02/19 08:59 08/06/19 09:09 Ondansetron HCl (Zofran) 4 mg Q4H PRN ORAL Nausea & Vomiting 08/05/19 18:56 09/04/19 18:55 Sodium Chloride 1,000 ml @ 100 mls/hr Q10H IV 08/05/19 18:55 09/04/19 18:54 08/05/19 19:51 Sodium Phosphate (Fleet's Sodium Phosl Enema) 133 ml DAILYPRN PRN RECTAL Constipation 08/05/19 18:56 09/04/19 18:55 Lei Chan MD Aug 06, 2019 10:08
--- NOTE | 2019-08-06 10:24 | Cardiac Electrophysiology PN ---
Assessment/Plan Assessment/Plan 1. Elevated troponin.Levels are flat and no CP. Refused echo. Despite normal renal function. BNP is also 8000. On Aspirin. Off beta galo for bradycardia 2. Bradycardia, could be due to hypothyroidism. TSH is more than 17 and T4 is only 0.3. Already on Synthroid 150 mcg daily. 3. Hyperlipidemia, on Lipitor. 4. Desaturation, possible pneumonia, on Levaquin and Solu-Medrol. 5. History of Parkinson disease. YOSELYN RN Subjective Subjective Alert in NAD. No CP or SOB. Was confused and spat at the nurse. Objective Last 24 Hour Vital Signs Date Time Temp Pulse Resp B/P (MAP) Pulse Ox O2 Delivery O2 Flow Rate FiO2 08/06/19 09:00 Nasal Cannula 2.0 08/06/19 08:56 93 Nasal Cannula 2.0 28 08/06/19 08:00 98.5 71 20 140/57 (84) 95 08/06/19 04:49 64 17 98 30 08/06/19 04:00 97.3 69 18 137/55 (82) 95 08/06/19 02:39 63 17 96 30 08/06/19 01:00 72 20 98 30 08/06/19 00:00 97.9 75 18 127/57 (80) 97 08/05/19 22:24 68 18 99 30 08/05/19 22:18 Nasal Cannula 2.0 08/05/19 20:00 97.9 75 18 142/61 (88) 97 08/05/19 19:16 95 Nasal Cannula 2.0 28 08/05/19 16:00 75 08/05/19 16:00 2.0 08/05/19 16:00 97.5 76 20 140/70 (93) 97 08/05/19 12:00 98.0 75 20 125/56 (79) 96 08/05/19 12:00 2.0 08/05/19 12:00 76 Intake and Output 08/05/19 08/06/19 19:00 07:00 Intake Total 800 ml 100 ml Output Total 350 ml Balance 800 ml -250 ml Intake Oral 100 ml IV Total 800 ml Output Urine Total 350 ml Objective HEAD AND NECK: Showed no JVD or carotid bruits. LUNGS: Clear. CARDIOVASCULAR: Shows regular S1 and S2 with no gallop or murmur. ABDOMEN: Soft. EXTREMITIES: There is no pitting edema. Cameron Davies MD Aug 06, 2019 10:24
--- NOTE | 2019-08-06 10:35 | NUR ---
NURSE NOTES: RN spoke to Dr. Myers, awaiting discharge to SNF depending on primary doctor.
--- NOTE | 2019-08-06 10:55 | Pulmonology Progress Note ---
Assessment/Plan Assessment/Plan ASSESSMENT AND PLAN: 1. Elevated troponin. 2. Bradycardia, 3. Hyperlipidemia, on Lipitor. 4. Desaturation, possible pneumonia, on Levaquin and Solu-Medrol. 5. History of Parkinson disease. 6. Questionable COPD 7. KAT? Agree with steroids and abx BiPAP q HS and prn only Continue O2 DC to SNF David Myers M.D. Subjective Interval Events: None new Constitutional: Reports: no symptoms HEENT: Repors: no symptoms Respiratory: Reports: no symptoms Cardiovascular: Reports: no symptoms Allergies: Coded Allergies: LITHIUM (Verified Allergy, Unknown, 02/07/19) Objective Last 24 Hour Vital Signs Date Time Temp Pulse Resp B/P (MAP) Pulse Ox O2 Delivery O2 Flow Rate FiO2 08/06/19 09:00 Nasal Cannula 2.0 08/06/19 08:56 93 Nasal Cannula 2.0 28 08/06/19 08:00 98.5 71 20 140/57 (84) 95 08/06/19 04:49 64 17 98 30 08/06/19 04:00 97.3 69 18 137/55 (82) 95 08/06/19 02:39 63 17 96 30 08/06/19 01:00 72 20 98 30 08/06/19 00:00 97.9 75 18 127/57 (80) 97 08/05/19 22:24 68 18 99 30 08/05/19 22:18 Nasal Cannula 2.0 08/05/19 20:00 97.9 75 18 142/61 (88) 97 08/05/19 19:16 95 Nasal Cannula 2.0 28 08/05/19 16:00 75 08/05/19 16:00 2.0 08/05/19 16:00 97.5 76 20 140/70 (93) 97 08/05/19 12:00 98.0 75 20 125/56 (79) 96 08/05/19 12:00 2.0 08/05/19 12:00 76 Intake and Output 08/05/19 08/06/19 19:00 07:00 Intake Total 800 ml 100 ml Output Total 350 ml Balance 800 ml -250 ml Intake Oral 100 ml IV Total 800 ml Output Urine Total 350 ml General Appearance: no acute distress HEENT: normocephalic Respiratory/Chest: chest wall non-tender, normal breath sounds Cardiovascular: normal peripheral pulses Abdomen: soft, non tender Current Medications Medications (Trade) Dose Ordered Sig/Angie Route PRN Reason Start Time Stop Time Status Last Admin Dose Admin Albuterol/ Ipratropium (Albuterol/ Ipratropium) 3 ml Q4H PRN HHN Shortness of Breath 08/05/19 18:56 08/10/19 18:55 Amantadine HCl (Symmetrel) 100 mg DAILY ORAL 08/06/19 09:00 09/02/19 08:59 08/06/19 09:09 Aspirin (ASA) 325 mg DAILY ORAL 08/06/19 09:00 09/02/19 08:59 08/06/19 09:09 Atorvastatin Calcium (Lipitor) 10 mg BEDTIME ORAL 08/05/19 21:00 09/02/19 20:59 08/05/19 21:21 Bisacodyl (Dulcolax) 10 mg DAILYPRN PRN RECTAL Constipation 08/05/19 18:55 09/04/19 18:54 Clonidine HCl (Catapres Tab) 0.1 mg Q6H PRN ORAL For High Blood Pressure 08/05/19 18:55 09/04/19 18:54 Divalproex Sodium (Depakote ER) 250 mg TID ORAL 08/06/19 09:00 09/02/19 08:59 08/06/19 09:10 Docusate Sodium (Colace) 100 mg BIDPRN PRN ORAL Constipation 08/05/19 18:56 09/04/19 18:55 Enoxaparin Sodium (Lovenox) 40 mg Q24H SUBQ 08/06/19 09:00 09/04/19 08:59 08/06/19 09:10 Famotidine (Pepcid) 20 mg DAILY ORAL 08/06/19 09:00 09/02/19 08:59 08/06/19 09:09 Guaifenesin (Robitussin) 100 mg Q4H PRN ORAL For Cough 08/05/19 18:56 09/04/19 18:55 Levofloxacin (Levaquin) 750 mg Q48H ORAL 08/07/19 09:00 08/10/19 08:59 Levothyroxine Sodium (Synthroid) 150 mcg DAILY@0630 ORAL 08/06/19 06:30 09/02/19 06:29 08/06/19 06:14 Nitroglycerin (Ntg) 0.4 mg Q5MIN X 3 DOSES PRN SL CHEST PAIN 08/05/19 19:00 09/02/19 01:44 Olanzapine (ZyPREXA) 10 mg BID ORAL 08/06/19 09:00 09/02/19 08:59 08/06/19 09:09 Ondansetron HCl (Zofran) 4 mg Q4H PRN ORAL Nausea & Vomiting 08/05/19 18:56 09/04/19 18:55 Sodium Chloride 1,000 ml @ 100 mls/hr Q10H IV 08/05/19 18:55 09/04/19 18:54 08/05/19 19:51 Sodium Phosphate (Fleet's Sodium Phosl Enema) 133 ml DAILYPRN PRN RECTAL Constipation 08/05/19 18:56 09/04/19 18:55 Sincere Myers MD Aug 06, 2019 10:55
[2019-08-06 11:38] LABS: % IRON SATURATION 14 % (15-50); IRON 41 ug/dL (50-175); TOTAL IRON BINDING CAPACITY 296 ug/dL (250-450)
[2019-08-06 11:50] LABS: FERRITIN 104 NG/ML (8-388)
--- NOTE | 2019-08-06 12:52 | NUR ---
*-*DISCHARGE PLANNING*-* PATIENT HAS BEEN REFERRED BACK TO: [facility] P: [phone] F: [phone] *-*CLINICALS FAXED*-*
--- NOTE | 2019-08-06 14:57 | NUR ---
*-*DISCHARGE PLANNING*-* PATIENT HAS BEEN ACCEPTED BACK TO: [facility] P: [phone] F: [phone] # A8.D
--- NOTE | 2019-08-06 15:03 | NUR ---
*-*DISCHARGE PLANNED*-* PATIENT IS BEING DISCHARGED BACK TO: [facility] P: [phone] F: [phone] # A8.D [facility] [id number] ETA 4PM/ 1600PM
--- NOTE | 2019-08-06 18:33 | NUR ---
NURSE NOTES: Report given to He CORTEZ at [facility]. Awaiting hand picker
--- NOTE | 2019-08-06 19:30 | NUR ---
HAND-OFF: Report given to Chanel ROJO. Patient is stable.
--- NOTE | 2019-08-06 19:56 | NUR ---
nurse's notes: received patient awake, alert and oriented x 2; denies pain; no S/S of distress at this time; ambulatory with staff at stand by assist only; patient cleared for discharge tonight; awaiting ambulance for transfer to [facility]. will continue to monitor.
--- NOTE | 2019-08-06 21:01 | General Progress Note ---
Assessment/Plan Problem List: (1) Dyspnea ICD Codes: R06.00 - Dyspnea, unspecified SNOMED: 265741254 (2) Hyperlipidemia ICD Codes: E78.5 - Hyperlipidemia, unspecified SNOMED: 87979411 (3) Psychosis ICD Codes: F29 - Unspecified psychosis not due to a substance or known physiological condition SNOMED: 86008403 (4) Respiratory failure ICD Codes: J96.90 - Respiratory failure, unspecified, unspecified whether with hypoxia or hypercapnia SNOMED: 952591122 (5) Obese ICD Codes: E66.9 - Obesity, unspecified SNOMED: 696893501, 494026194 (6) Dyspnea ICD Codes: R06.00 - Dyspnea, unspecified SNOMED: 522124325 (7) Parkinson disease ICD Codes: G20 - Parkinson's disease SNOMED: 99543054 (8) Schizophrenia ICD Codes: F20.9 - Schizophrenia, unspecified SNOMED: 78120682 (9) Hypertension ICD Codes: I10 - Essential (primary) hypertension SNOMED: 80363445 (10) Hyperlipidemia ICD Codes: E78.5 - Hyperlipidemia, unspecified SNOMED: 34962457 Status: progressing Assessment/Plan: cleared by all consultants for dc on 2 liter of oxygen psychiatric patient dc to snf see dc summary Subjective ROS Limited/Unobtainable: Yes Allergies: Coded Allergies: LITHIUM (Verified Allergy, Unknown, 02/07/19) Objective Last 24 Hour Vital Signs Date Time Temp Pulse Resp B/P (MAP) Pulse Ox O2 Delivery O2 Flow Rate FiO2 08/06/19 19:15 95 Nasal Cannula 2.0 28 08/06/19 15:58 97.6 74 20 133/56 (81) 97 08/06/19 11:58 98.1 80 18 123/64 (83) 96 08/06/19 09:00 Nasal Cannula 2.0 08/06/19 08:56 93 Nasal Cannula 2.0 28 08/06/19 08:00 98.5 71 20 140/57 (84) 95 08/06/19 04:49 64 17 98 30 08/06/19 04:00 97.3 69 18 137/55 (82) 95 08/06/19 02:39 63 17 96 30 08/06/19 01:00 72 20 98 30 08/06/19 00:00 97.9 75 18 127/57 (80) 97 08/05/19 22:24 68 18 99 30 08/05/19 22:18 Nasal Cannula 2.0 Intake and Output 08/05/19 08/06/19 19:00 07:00 Intake Total 800 ml 100 ml Output Total 350 ml Balance 800 ml -250 ml Intake Oral 100 ml IV Total 800 ml Output Urine Total 350 ml Laboratory Tests 08/06/19 10:50: Iron Level 41L, Total Iron Binding Capacity 296, Percent Iron Saturation 14L, Unsaturated Iron Binding 255, Ferritin 104, Carcinoembryonic Antigen [Pending] Height (Feet): 5 Height (Inches): 6.00 Weight (Pounds): 205 Respiratory/Chest: lungs clear Abdomen: soft Dani Perera MD Aug 06, 2019 21:01
--- NOTE | 2019-08-06 22:37 | NUR ---
nurse's notes: discharged patient via ambulance in no apparent distress; patient to go back to [facility].
[2019-08-07] MEDS ORDERED: Levofloxacin 750mg tab ORAL SCH (09:00)
--- NOTE | 2019-08-07 09:49 | Discharge Summary ---
Discharge Summary Discharge Summary _ DATE OF ADMISSION: 08/02/2019 DATE OF DISCHARGE: 08/06/2019 DISCHARGED BY: Dr. Escobar REASON FOR ADMISSION: 78 years old female with past medical history of COPD, hypothyroidism, Parkinson disease, hyperlipidemia, dementia, was brought by paramedics due to shortness of breath. Patient by herself nonverbal and was unable to provide any history. Patient apparently desaturated in skilled nursing and was brought with 100% nonrebreathing mask. Vital signs reveal no fever. Patient was placed on the BiPAP . ABG revealed evidence of hypoxia with O2 sat of 88% , pCO2 55 on BiPAP 15/5 and FiO2 of 45%. BUN 22, creatinine 0.9. Chloride 95 . CO2 33. Pro BNP 7953. Troponin 0.112. Lactic acid 1.3. No leukocytosis, hemoglobin 11.3, hematocrit 22.5. Urinalysis revealed +4 protein , but no evidence of urinary tract infection. Chest x-ray demonstrated cardiomegaly, interstitial congestion, but less severe than on prior exam in June. Subsequently admitted for further management. CONSULTANTS: clinical data analyst Dr. Bryan pulmonary Dr. Myers ID specialist Dr. Chan psychiatrist [facility] COURSE: Patient admitted and initially continued on the BiPAP. Echocardiogram revealed preserved ejection fraction of 55 to 60% with borderline left ventricular hypertrophy. No evidence of wall motion abnormality. Mild aortic regurgitation and severe mitral regurgitation. Moderate pulmonary hypertension with right ventricular systolic pressure of 52. Serial troponin were monitored and remained minimally elevated. Per clinical data analyst levels were flat and not suggestive of ACS. No chest pain. Patient started on antiplatelet therapy with aspirin and statin. Nitroglycerin was on board as needed. Patient initially was on beta galo, but it was discontinued due to COPD exacerbation and bradycardia. Patient noted to have a bradycardia, possibly due to hypothyroidism. TSH elevated, free T4 low. Synthroid dose optimized. Repeat thyroid function test in a month. As patient clinically improved, she was able to be weaned off BiPAP. Division Field Inspector recommended BiPAP only at nighttime and as needed. Patient was on IV steroids for a short time, which tapered down and stopped. Bronchodilator therapy via HHN provided as needed. Patient was on empiric antibiotic as per ID recommendations. DVT and GI prophylaxis provided. Antitussive provided as needed. Blood cultures were negative. Influenza swab test were negative. SNF Medication continued. Bowel regimen instituted. Supportive care provided. Hemoglobin and hematocrit were closely monitored with goal to keep hemoglobin above 7. Prior to discharge hemoglobin 9.7, hematocrit 28.4. Psychiatrist followed. Per psychiatrist , patient has schizophrenia. Psychotropic medication regimen was continued. Reality orientation supportive therapy provided. Patient clinically stabilized and was ready for transfer back to snf facility for continuation of care. FINAL DIAGNOSES: Acute hypoxemic and hypercapnic respiratory failure requiring BiPAP - resolved Elevated troponin Bradycardia , possibly due to hypothyroidism Hypothyroidism COPD exacerbation Parkinson disease Dementia Anemia Possible obstructive sleep apnea Hypertension Severe mitral regurgitation Hyperlipidemia Schizophrenia Obesity DISCHARGE MEDICATIONS: See Medication Reconciliation list. DISCHARGE INSTRUCTIONS: Patient was discharged to the snf facility. Follow up with medical doctor at the facility. 75 years old female I have been assigned to dictate discharge summary for this account. I was not involved in the patient's management.. Sherry Degroot NP Aug 07, 2019 09:49
== END 2019-08-06 21:40 | DRG 193 ==
LOC: EDBD 11:44 → EMR 11:53 → EDBEDREQSVC 11:54 → ICU 12:10 → EDBEDREQ 22:23 → 2W 08-04 19:09 → 3E 08-05 18:20
PROC: 5A09457 Assistance with Respiratory Ventilation, 24-96 Consecutive Hours, Continuous Positive Airway Pressure (ICD-10-PCS; principal; 2019-08-02)
DX: J18.9 Pneumonia, unspecified organism (principal); J96.02 Acute respiratory failure with hypercapnia; J96.01 Acute respiratory failure with hypoxia; J44.1 Chronic obstructive pulmonary disease with (acute) exacerbation; Z88.8 Allergy status to other drugs, medicaments and biological substances; E78.5 Hyperlipidemia, unspecified; G20 Parkinson's disease; F02.80 Dementia in other diseases classified elsewhere, unspecified severity, without behavioral disturbance, psychotic disturbance, mood disturbance, and anxiety; I35.1 Nonrheumatic aortic (valve) insufficiency; I34.0 Nonrheumatic mitral (valve) insufficiency; E03.9 Hypothyroidism, unspecified; E66.9 Obesity, unspecified; R00.1 Bradycardia, unspecified; D64.9 Anemia, unspecified; G47.33 Obstructive sleep apnea (adult) (pediatric); F25.9 Schizoaffective disorder, unspecified; I50.9 Heart failure, unspecified; Z79.82 Long term (current) use of aspirin
CPT/HCPCS: 36415; 36600; 71045; 80048; 80053; 81003; 82378; 82550; 82553; 82728; 82803; 82962; 83540; 83550; 83605; 83690; 83880; 84439; 84443; 84484; 85025; 86710; 87040; 87081; 93005; 93306; 94660; 94664; 99285; J7030; J7620

== ENCOUNTER 2019-12-11 13:29 | Inpatient (IN) | payer MEDICARE, MEDICAID ==
[~2019-12-11] VITALS: Ht 170.2 cm; Wt 104.3 kg
[2019-12-11 13:50] VITALS: BP 140/66
--- NOTE | 2019-12-11 13:50 | NUR ---
ED Nurse Note: PT ARRIVED WITH RA 34 D/T SOB FROM SNF. PT IS was 82% on room air. pt placed on venture mask 40% per ermd order.
[2019-12-11] MEDS ORDERED: HEPARIN SO5000 UNIT2 SUBQ (13:59)
[2019-12-11] MEDS ORDERED: HALDOL DEC50 MG/1 ML IM (13:59)
[2019-12-11] MEDS ORDERED: FUROSEMIDE40 MG/5 ML ORAL (13:59)
[2019-12-11] MEDS ORDERED: VITAMIN D325 GM MC (13:59)
--- NOTE | 2019-12-11 14:00 | NUR ---
ED Nurse Note: pt desaturing on venturi mask 82-88%. per ermd place nonrebreather 15L. pt 95% o2 sat.
--- NOTE | 2019-12-11 14:30 | NUR ---
ED Nurse Note: blood, urine, and covid specimen sent to lab
--- NOTE | 2019-12-11 14:39 | Emergency Room Report ---
History of Present Illness General Chief Complaint: Dyspnea/Respdistress Source: Medical Record, EMS Present Illness HPI Patient presents the emergency department via EMS. She had a complaint of dyspnea. Oxygen saturation was low in the field. The patient is unable to give a good history at this time. The patient was last admitted to the hospital in July. She was discharged August 06 with these discharge diagnoses: Acute hypoxemic and hypercapnic respiratory failure requiring BiPAP - resolved Elevated troponin Bradycardia , possibly due to hypothyroidism Hypothyroidism COPD exacerbation Parkinson disease Dementia Anemia Possible obstructive sleep apnea Hypertension Severe mitral regurgitation Hyperlipidemia Schizophrenia Obesity Allergies: Coded Allergies: LITHIUM (Verified Allergy, Unknown, 02/07/19) COVID-19 Screening Contact w/high risk pt: No Recent Travel to affected area: No Experienced COVID-19 symptoms?: No COVID-19 symptoms experienced: Shortness of Breath COVID-19 Testing performed CODING AUDITOR: No Patient History Limited by: medical condition Past Medical History: see triage record, old chart reviewed Social History Narrative Patient is a full code Reviewed Nursing Documentation: PMH: Agreed; PSxH: Agreed Nursing Documentation-PMH Past Medical History: No History, Except For Hx Hypertension: Yes Hx COPD: Yes Hx Diabetes: Yes Hx Cancer: No Hx Gastrointestinal Problems: No Hx Neurological Problems: Yes Hx Dementia: Yes Hx Parkinson's Disease: Yes Review of Systems All Other Systems: limited Physical Exam Vital Signs Date Time Temp Pulse Resp B/P (MAP) Pulse Ox O2 Delivery O2 Flow Rate FiO2 12/11/19 13:24 99.0 93 23 140/66 (90) 98 Non-Rebreather 15.0 Sp02 EP Interpretation: reviewed, abnormal - Interpreted as low by me General Appearance: mild distress - Dyspneic, obese, other - Eyes closed but vocalizes occasionally Head: normocephalic, atraumatic Eyes: bilateral eye PERRL, bilateral eye other - Periorbital edema bilaterally ENT: moist mucus membranes Neck: full range of motion Respiratory: crackles - Bilaterally Cardiovascular #1: regular rate, rhythm, edema - anasarca Cardiovascular #2: 2+ radial (R) Gastrointestinal: non tender, non-distended, overweight Musculoskeletal: back normal, other - Moving upper extremities Neurologic: other - Eyes closed, vocalizes, localizes to pain Psychiatric: depressed affect Skin: other - Cool Procedures Critical Care Time Critical Care Time Total Critical Care Time: 60 min bedside evaluation and treatment excludes procedures (EKG). Reason for critical care: Respiratory distress, hypoxia, congestive heart failure, possible COVID-19, pneumonia Possible complications: hypotension, hypertension, MN, shock, arrhythmias, metabolic acidosis, end organ damage, respiratory failure. Interventions: Rocephin, azithromycin, Lovenox, Nitropaste, Lasix, repeat evaluations Course: Patient presented with hypoxia and respiratory distress. She was stabilized with supplemental oxygen. This was increased as the Ventimask still had low oxygen. Evaluation was significant for pulmonary infiltrates. Patient was treated with antibiotics. In addition dexamethasone was given. Patient started on Lovenox for elevated d-dimer. Fluids were withheld as BNP was elevated. For the consideration of congestive heart failure Nitropaste and Lasix were given. The patient began to have improvement in her oxygen saturation after this. Patient admitted to stepdown unit. Consultations: nursing staff, EMS, respiratory therapy Performed by: Dr. Cormier Tolerated well condition = critical Medical Decision Making Diagnostic Impression: Primary Impression: Hypoxia Additional Impressions: Elevated d-dimer CHF (congestive heart failure) Qualified Codes: I50.9 - Heart failure, unspecified Patient under investigation for COVID-19 Encephalopathy ER Course Patient presents with dyspnea and hypoxia. Based on clinical features COVID-19 is highly suspected. Other differential includes nursing facility acquired pneumonia, atypicals, staph amongst others. Evaluation with EKG, chest x-ray and labs. Patient treated with increased oxygen, semiupright position and gentle IV hydration. Considerations for dexamethasone, anticoagulation, antibiotics. Patient placed on a maintenance shop welder. EKG normal sinus rhythm with first-degree AV block. Chest x-ray with bilateral infiltrates. Patient pulling off O2 mask. Soft restraints ordered. O2 sat was 88% with 40% venti mask. Increased to NRM. Low WBC. Elevated D-dimer. Elevated LDH and BNP. Starting lovanox. Slightly mixed picture as C reactive protein not elevated. Consider CHF - treating with nitro-bid and lasix. Improved with nitrates and lasix. Resp rate decreased and increased oxygenation. Patient is under investigation for possible COVID-19 infection. Respiratory isolation will be continued. Laboratory Tests Test 12/11/19 13:43 12/11/19 14:10 Arterial Blood pH 7.340 (7.350-7.450) Arterial Blood Partial Pressure CO2 54.3 mmHg (35.0-45.0) H Arterial Blood Partial Pressure O2 130.3 mmHg (75.0-100.0) H Arterial Blood HCO3 28.6 mmol/L (22.0-26.0) H Arterial Blood Oxygen Saturation 98.1 % (95-100) Arterial Blood Base Excess 98.1 (-2-2) *H Raphael Test Positive White Blood Count 4.9 K/UL (4.8-10.8) Red Blood Count 3.73 M/UL (4.20-5.40) L Hemoglobin 12.3 G/DL (12.0-16.0) Hematocrit 37.6 % (37.0-47.0) Mean Corpuscular Volume 101 FL (80-99) H Mean Corpuscular Hemoglobin 33.1 PG (27.0-31.0) H Mean Corpuscular Hemoglobin Concent 32.9 G/DL (32.0-36.0) Red Cell Distribution Width 13.1 % (11.6-14.8) Platelet Count 237 K/UL (150-450) Mean Platelet Volume 7.3 FL (6.5-10.1) Neutrophils (%) (Auto) 68.1 % (45.0-75.0) Lymphocytes (%) (Auto) 22.1 % (20.0-45.0) Monocytes (%) (Auto) 8.6 % (1.0-10.0) Eosinophils (%) (Auto) 0.2 % (0.0-3.0) Basophils (%) (Auto) 1.0 % (0.0-2.0) Prothrombin Time 12.2 SEC (9.30-11.50) H Prothrombin Time INR 1.1 (0.9-1.1) Activated Partial Thromboplast Time 31 SEC (23-33) D-Dimer 2.04 mg/L FEU (0.00-0.49) H Urine Color Pale yellow Urine Appearance Clear Urine pH 5 (4.5-8.0) Urine Specific [place] 1.015 (1.005-1.035) Urine Protein 3+ (NEGATIVE) H Urine Glucose (UA) Negative (NEGATIVE) Urine Ketones Negative (NEGATIVE) Urine Blood 1+ (NEGATIVE) H Urine Nitrite Negative (NEGATIVE) Urine Bilirubin Negative (NEGATIVE) Urine Urobilinogen Normal MG/DL (0.0-1.0) Urine Leukocyte Esterase 1+ (NEGATIVE) H Urine RBC 0-2 /HPF (0 - 2) Urine WBC 0-2 /HPF (0 - 2) Urine Squamous Epithelial Cells Few /LPF (NONE/OCC) Urine Bacteria Few /HPF (NONE) Sodium Level 130 MMOL/L (136-145) L Potassium Level 4.4 MMOL/L (3.5-5.1) Chloride Level 92 MMOL/L (98-107) L Carbon Dioxide Level 30 MMOL/L (21-32) Anion Gap 8 mmol/L (5-15) Blood Urea Nitrogen 25 mg/dL (7-18) H Creatinine 1.0 MG/DL (0.55-1.30) Estimated Glomerular Filtration Rate 53.3 mL/min (>60) Glucose Level 102 MG/DL (74-106) Lactic Acid Level 1.10 mmol/L (0.4-2.0) Calcium Level 8.6 MG/DL (8.5-10.1) Magnesium Level 2.3 MG/DL (1.8-2.4) Ferritin 57 NG/ML (8-388) Total Bilirubin 1.0 MG/DL (0.2-1.0) Aspartate Amino Transferase (AST) 139 U/L (15-37) H Alanine Aminotransferase (ALT) 215 U/L (12-78) H Alkaline Phosphatase 68 U/L (46-116) Lactate Dehydrogenase 685 U/L (81-234) H Troponin I 0.056 ng/mL (0.000-0.056) C-Reactive Protein, Quantitative < 0.4 mg/dL (0.00-0.90) Pro-B-Type Natriuretic Peptide 96808 pg/mL (0-125) H Total Protein 7.7 G/DL (6.4-8.2) Albumin 4.6 G/DL (3.4-5.0) Globulin 3.1 g/dL Albumin/Globulin Ratio 1.5 (1.0-2.7) Valproic Acid Level 3 MCG/ML (50-100) L EKG Diagnostic Results Rate: normal Rhythm: NSR ST Segments: no acute changes - First-degree AV block Rhythm Strip Diag. Results EP Interpretation: yes Rhythm: NSR, no PVC's, no ectopy Chest X-Ray Diagnostic Results Chest X-Ray Diagnostic Results : Chest X-Ray Ordered: Yes # of Views/Limited/Complete: 1 View Indication: Shortness of Breath EP Interpretation: Yes Interpretation: no effusion, no pneumothorax, other - Bilateral infiltrates Impression: Other Electronically Signed by: Electronically signed by Jean Cormier MD Last Vital Signs Date Time Temp Pulse Resp B/P (MAP) Pulse Ox O2 Delivery O2 Flow Rate FiO2 12/11/19 22:04 Non-Rebreather 15.0 12/11/19 20:36 66 12/11/19 20:00 97.7 20 110/45 (66) 100 Status: improved Disposition: ADMITTED INPATIENT Condition: Critical Referrals: Dani Perera MD (PCP) Jean Cormier MD Dec 11, 2019 14:39
[2019-12-11] MEDS ORDERED: cefTRIAXone 1 GM in NS 55 ML IVPB ONE (14:45)
[2019-12-11] MEDS ORDERED: Vancomycin 750 MG in NS 275 ML IVPB ONE (14:45)
[2019-12-11] MEDS ORDERED: Azithromycin 500 MG in D5W 275 ML IVPB ONE (14:45)
[2019-12-11 15:08] LABS: APPEARANCE,URINE CLEAR; BILIRUBIN, URINE NEGATIVE (NEGATIVE); COLOR,URINE PALE YELLOW; GLUCOSE, URINE (UA) NEGATIVE (NEGATIVE); KETONES,URINE NEGATIVE (NEGATIVE); LEUKOCYTE ESTERASE ,URINE 1+ (NEGATIVE); NITRITE,URINE NEGATIVE (NEGATIVE); PH,URINE 5 (4.5-8.0); PROTEIN,URINE 3+ (NEGATIVE); UROBILINOGEN,URINE NORMAL MG/DL (0.0-1.0)
[2019-12-11 15:09] LABS: EOSINOPHILS % (AUTO) 0.2 % (0.0-3.0); HEMATOCRIT 37.6 % (37.0-47.0); HEMOGLOBIN 12.3 G/DL (12.0-16.0); LYMPHOCYTES % (AUTO) 22.1 % (20.0-45.0); MEAN CORPUSCULAR VOLUME 101 FL (80-99); MONOCYTES % (AUTO) 8.6 % (1.0-10.0); NEUTROPHILS % (AUTO) 68.1 % (45.0-75.0); PLATELET COUNT 237 K/UL (150-450); RED BLOOD COUNT 3.73 M/UL (4.20-5.40); RED CELL DISTRIBUTION WIDTH 13.1 % (11.6-14.8); WHITE BLOOD COUNT 4.9 K/UL (4.8-10.8)
[2019-12-11 15:13] LABS: ANION GAP 8 mmol/L (5-15); BLOOD UREA NITROGEN 25 mg/dL (7-18); CALCIUM 8.6 MG/DL (8.5-10.1); CARBON DIOXIDE 30 MMOL/L (21-32); CHLORIDE 92 MMOL/L (98-107); INR 1.1 (0.9-1.1); POTASSIUM 4.4 MMOL/L (3.5-5.1); SODIUM 130 MMOL/L (136-145)
[2019-12-11] MEDS ORDERED: Azithromycin 500mg Inj IV ONE (15:20)
[2019-12-11 15:28] LABS: ALANINE AMINOTRANSFERASE 215 U/L (12-78); ALBUMIN 4.6 G/DL (3.4-5.0); ALBUMIN/GLOBULIN RATIO 1.5 (1.0-2.7); ALKALINE PHOSPHATASE 68 U/L (46-116); ASPARTATE AMINO TRANSFERASE 139 U/L (15-37)
[2019-12-11 15:32] LABS: FERRITIN 57 NG/ML (8-388); LACTATE DEHYDROGENASE 685 U/L (81-234)
[2019-12-11 15:50] VITALS: BP 135/79
[2019-12-11] MEDS ORDERED: Enoxaparin 100mg Inj SUBQ SCH (16:00)
[2019-12-11] MEDS ORDERED: Nitroglycerin 2% oint pkt TOPIC ONE (16:00)
[2019-12-11] MEDS ORDERED: Enoxaparin 120 mg inj SUBQ SCH (16:00)
--- NOTE | 2019-12-11 16:33 | Diagnostic Imaging Report ---
Indication: Reason For Exam: AMS Technique: Single AP view of the chest. Comparison: Chest radiograph dated 08/02/2019 Findings: The cardiomediastinal silhouette is unchanged. There is interstitial edema. There are streaky bibasilar airspace opacities. No pneumothorax. No large pleural effusion. No acute osseous abnormality. IMPRESSION: Interstitial edema with streaky bibasilar airspace opacities which could represent combination of edema and atelectasis, but pneumonia should be excluded clinically.
[2019-12-11 17:50] VITALS: BP 127/60
--- NOTE | 2019-12-11 18:36 | NUR ---
ED Nurse Note: telephone report given to catie, charge nurse for continuity of care.
--- NOTE | 2019-12-11 18:45 | NUR ---
NURSE NOTES: Received report from Ines ROJO from ED.
--- NOTE | 2019-12-11 19:14 | NUR ---
TRANSFER TO FLOOR: Patient transferred to sdu as ordered, per ermd. Report given to catie charge nurse. Belongings pt.
--- NOTE | 2019-12-11 19:31 | NUR ---
HAND-OFF: Report given to Emy ROJO. Pt. new admit.
--- NOTE | 2019-12-11 19:39 | NUR ---
NURSE NOTES: Received report from DARREL Irvin. Patient is asleep lying semi-flores's; lethargic and difficult to arouse. No signs of acute distress or pain noted otherwise. On 15L non-rebreather mask saturating at 100%. AOx0; unable to make needs known. Checked IV site; patent and flushed. No erythema, bleeding, or infiltration noted. Belongings list checked with transferring RN. Skin assessment performed; wound photo taken. Bed at lowest position, brakes on, siderails up x3. Call light within reach. Will continue to monitor.
[2019-12-11 20:00] VITALS: BP 110/45
--- NOTE | 2019-12-11 21:40 | Consultation ---
Consult Note Consult Note I was asked to evaluate the patient at the request of Dr. Perera for fluid and electrolyte management. Patient is known to me from her previous admission in June 2019. Patient presents with emergency room via EMS with complaint of shortness of breath. Oxygen saturation was low in the field. The patient is unable to give a good history at this time. Patient is 79 years old. Past history significant for COPD, CHF, coronary artery disease, schizoaffective disorder, mood disorder, and dementia. She is being full code. Allergies are to lithium. Emergency room note: COVID-19 Screening Contact w/high risk pt: No Recent Travel to affected area: No Experienced COVID-19 symptoms?: No COVID-19 symptoms experienced: Shortness of Breath COVID-19 Testing performed UTILITY ASSEMBLER: No Past Medical History: No History, Except For: Hyperlipemia, hypothyroidism, parkinsonism, hypocalcemia, Hx Hypertension: Yes Hx COPD: Yes Hx Diabetes: Yes Hx Neurological Problems: Yes Hx Dementia: Yes Hx Parkinson's Disease: Yes Patient examined Data reviewed Vital Signs Date Time Temp Pulse Resp B/P (MAP) Pulse Ox O2 Delivery O2 Flow Rate FiO2 12/11/19 13:24 99.0 93 23 140/66 (90) 98 Non-Rebreather 15.0 Sp02 EP Interpretation: reviewed, abnormal - Interpreted as low by me General Appearance: mild distress - Dyspneic, obese, other - Eyes closed but vocalizes occasionally Head: normocephalic, atraumatic Eyes: bilateral eye PERRL, bilateral eye other - Periorbital edema bilaterally ENT: moist mucus membranes Neck: full range of motion Respiratory: crackles - Bilaterally Cardiovascular #1: regular rate, rhythm, edema - anasarca Cardiovascular #2: 2+ radial (R) Gastrointestinal: non tender, non-distended, overweight Musculoskeletal: back normal, other - Moving upper extremities Neurologic: other - Eyes closed, vocalizes, localizes to pain Psychiatric: depressed affect Skin: other - Cool Assessment/Plan Patient presents with hypoxia. Respiratory distress most likely secondary to pulmonary edema and or COPD exacerbation. Hyponatremia. Obese. Hypothyroidism. Elevated d-dimer. Elevated liver enzymes Suggestions: Pulmonary support, BiPAP if needed. Check 2D echocardiogram. Previous 2D echo had a 50% ejection fraction. Keep blood sugar and blood pressure in check. Thyroid panel. Monitor electrolytes and renal parameters. Afterload reduction. N.p.o. until awake enough to eat and after speech therapy evaluation Per orders. Bryan Ochoa MD Dec 11, 2019 21:40
[2019-12-11] MEDS ORDERED: Nitroglycerin Subl 0.4mg tab SL PRN (21:45)
[2019-12-11] MEDS ORDERED: Acetaminophen 500mg (ES) tab ORAL PRN (21:50)
[2019-12-11] MEDS ORDERED: LORazepam 0.5mg tab ORAL PRN (22:45)
--- NOTE | 2019-12-11 23:05 | NUR ---
NURSE NOTES: Informed Dr. Ochoa that patient still needs admission orders and made him aware that patient is lethargic.
[2019-12-12] VITALS (40 sets, daily range): BP systolic 96–124; BP diastolic 26–57
[2019-12-12] MEDS ORDERED: COLACE100 MG ORAL (00:11)
[2019-12-12] MEDS ORDERED: CRANBERRY CONC1 EAC1 PO (00:11)
--- NOTE | 2019-12-12 02:45 | Consultation ---
DATE OF CONSULTATION: 12/11/2019 CONSULTING PHYSICIAN: Kiana Hernandez MD. HISTORY OF PRESENT ILLNESS: This is my assisted patient from [facility]. An 79-year-old female with a history of multiple medical issues including schizoaffective disorder, dementia who has been admitted to the hospital due to dyspnea. Patient has a history of multiple medical issues including COPD, altered mental state, dementia. Patient has been off of her psychotropic medication. No agitation noted. PAST PSYCHIATRY HISTORY: psychotic disorder, on Zyprexa and Depakote. PAST MEDICAL HISTORY: COPD, anemia, diabetes, hypertension, and CHF. ALLERGIES: [place]. SUBSTANCE ABUSE HISTORY: No known history of illicit drug use or alcohol. MENTAL STATUS EXAMINATION: Patient has waxing and waning consciousness. Episodes of agitation. Mood is anxious. Affect is flat. Thought process, there is a paucity of thought content. Thought content, no suicidal or homicidal ideation. Cognition is impaired. Insight and judgment are impaired. ASSESSMENT: Orick I Schizoaffective disorder. Acute encephalopathy. Orick II Deferred. Orick III As above. Orick IV Low. Orick V 20. PLAN: 1. Zyprexa 5 mg b.i.d. 2. We will decrease both Zyprexa and Depakote dose. Kiana Hernandez M.D. DR: KALIE JOB#: [id number] CC: [facility]
[2019-12-12 04:54] LABS: BASOPHILS % (AUTO) 0.5 % (0.0-2.0); HEMATOCRIT 37.3 % (37.0-47.0); HEMOGLOBIN 11.9 G/DL (12.0-16.0); LYMPHOCYTES % (AUTO) 11.3 % (20.0-45.0); MEAN CORPUSCULAR VOLUME 103 FL (80-99); MONOCYTES % (AUTO) 4.8 % (1.0-10.0); NEUTROPHILS % (AUTO) 83.4 % (45.0-75.0); PLATELET COUNT 238 K/UL (150-450); RED BLOOD COUNT 3.61 M/UL (4.20-5.40); RED CELL DISTRIBUTION WIDTH 13.7 % (11.6-14.8); WHITE BLOOD COUNT 6.5 K/UL (4.8-10.8)
[2019-12-12 05:54] LABS: ALANINE AMINOTRANSFERASE 184 U/L (12-78); ALBUMIN 4.1 G/DL (3.4-5.0); ALBUMIN/GLOBULIN RATIO 1.4 (1.0-2.7); ALKALINE PHOSPHATASE 64 U/L (46-116); ANION GAP 6 mmol/L (5-15); ASPARTATE AMINO TRANSFERASE 91 U/L (15-37); BILIRUBIN,TOTAL 0.6 MG/DL (0.2-1.0); BLOOD UREA NITROGEN 32 mg/dL (7-18); CALCIUM 7.9 MG/DL (8.5-10.1); CARBON DIOXIDE 32 MMOL/L (21-32); CHLORIDE 95 MMOL/L (98-107); CHOLESTEROL 238 MG/DL (< 200); CREATININE 1.2 MG/DL (0.55-1.30); GAMMA GLUTAMYL TRANSPEPTIDASE 31 U/L (5-85); HDL CHOLESTEROL 59 MG/DL (40-60); PHOSPHORUS 5.6 MG/DL (2.5-4.9); POTASSIUM 4.2 MMOL/L (3.5-5.1); SODIUM 133 MMOL/L (136-145); TRIGLYCERIDES 112 MG/DL (30-150)
--- NOTE | 2019-12-12 06:03 | NUR ---
NURSE NOTES: Called Dr. Perera for any DVT prophylaxis order. Awaiting callback.
[2019-12-12] MEDS ORDERED: Docusate 100mg cap ORAL SCH (06:30)
--- NOTE | 2019-12-12 06:34 | NUR ---
NURSE NOTES: Received order from Dr. Escobar to put him down as consult. Noted and carried out.
--- NOTE | 2019-12-12 07:00 | NUR ---
NURSE NOTES: Received order from Dr. Perera for SCDs. Noted and carried out.
--- NOTE | 2019-12-12 07:54 | NUR ---
HAND-OFF: Report given to DARREL Howell. Patient is asleep lying semi-flores's; resting comfortably. On 15L non-rebreather mask. In stable condition.
--- NOTE | 2019-12-12 07:55 | NUR ---
NURSE NOTES: Received report from DARREL Quevedo. The patient is lethargic and only awake with deep pain. SR with HR of 70s with 1 AVB noted on the radiation monitor. The patient is on 15L non-rebreather and oxygen saturation is 99-100% on the monitor. The patient kept in NPO per order. The patient is on purewig that is draining by suction. The patient's skin issue noted and dressing intact. L AC 20G that is intact and patent. BS of 98 noted and will follow up ABG per order. Dr. Perera was notified regarding lethargic mental status. The patient's bed in the lowest position, call light in reach, and fall and aspiration precaution reinforced. IV site intact and patent. Will follow up the order and lab. Will closely monitor the patient. Will continue plan of care.
--- NOTE | 2019-12-12 08:00 | NUR ---
NURSE NOTES: Dr. Perera was notified regarding altered mental status and ABG result. Dr. Perera consulted with Dr. Myers for further order. Will closely monitor the patient. Will continue plan of care.
--- NOTE | 2019-12-12 08:30 | NUR ---
NURSE NOTES: Dr. Perera ordered the patient to be transferred to ICU. Reported abnormal ABG to Dr. Myers but no call back yet. Will transfer the patient as soon as the bed gets available.
--- NOTE | 2019-12-12 08:35 | NUR ---
NURSE NOTES: Dr. Myers called back and reported abnormal ABG. Dr. Myers ordered stat transfer to ICU for intubation. Will continue plan of care until transfer.
[2019-12-12] MEDS ORDERED: Aspirin EC 325mg tab ORAL SCH (09:00)
[2019-12-12] MEDS ORDERED: Amantadine 100mg cap ORAL SCH (09:00)
--- NOTE | 2019-12-12 09:00 | NUR ---
NURSE NOTES: The patient got safely transferred to ICU for intubation. ERMD at the bedside for intubation. Will continue plan of care.
--- NOTE | 2019-12-12 09:10 | NUR ---
NURSE NOTES: The patient got safely intubated by ERMD. CXR ordered for placement. Will closely monitor the patient. Will continue plan of care.
--- NOTE | 2019-12-12 09:12 | Emergency Room Report ---
Physical Exam Vital Signs Date Time Temp Pulse Resp B/P (MAP) Pulse Ox O2 Delivery O2 Flow Rate FiO2 12/11/19 13:24 99.0 93 23 140/66 (90) 98 Non-Rebreather 15.0 Medical Decision Making Diagnostic Impression: Primary Impression: Hypoxia Additional Impressions: Elevated d-dimer CHF (congestive heart failure) Qualified Codes: I50.9 - Heart failure, unspecified Patient under investigation for COVID-19 ER Course Called to the ICU for emergency intubation for hypoxic respiratory failure. 79- year-old female admitted yesterday for hypoxic respiratory failure. She is a person under investigation for COVID-19. Patient had worsening blood gas showing acidosis and CO2 retention. Her mental status was declining. She was intubated by me at bedside under glide scope visualization with a 7.5 endotracheal tube. Intubated on first attempt without complication. X-ray shows appropriate position of ET tube above the du. Remainder of care per ICU team. Recall as needed. Chest X-Ray Diagnostic Results Chest X-Ray Diagnostic Results : Chest X-Ray Ordered: Yes # of Views/Limited/Complete: 1 View Indication: Shortness of Breath EP Interpretation: Yes Interpretation: other - Right lower lobe consolidation, endotracheal tube in appropriate position above the du Impression: Other - ET tube in appropriate position above the du. Right lower lobe consolidation Last Vital Signs Date Time Temp Pulse Resp B/P (MAP) Pulse Ox O2 Delivery O2 Flow Rate FiO2 12/12/19 04:00 97.8 78 16 115/55 (75) 100 12/12/19 04:00 Non-Rebreather 15.0 Disposition: ADMITTED INPATIENT Condition: Critical Referrals: Dani Perera MD (PCP) Procedures Intubation Intubation : Consent: Emergent Intubation Method: orotracheal Tube Size (cm): 7.5 Medications: Etomidate, Rocuronium Breath Sounds after Intubation: equal Intubation Complications: no complications Post Intubation Xray: Yes Progress/Xray Impression: ET tube in appropriate position above the du. Right lower lobe infiltr Attempts: One Patient Tolerated: Well Complications: None Warren Patterson MD Dec 12, 2019 09:12
[2019-12-12] MEDS ORDERED: Os-Cal (Oyster Shell) 500mg tab ORAL SCH (10:00)
--- NOTE | 2019-12-12 10:00 | NUR ---
HAND-OFF: Report given to DARREL Meyer. The patient is on stable condition. Endorsed plan of care.
--- NOTE | 2019-12-12 10:01 | NUR ---
NURSE NOTES: Report received from DARREL Howell. Belonging list checked. Pt is lethargic. Respond to SR on radioisotope technologist. Orally intubated. ETT 7.5/24cm at lip line. AC 20, TV 500, FiO2 100%, P 5. O2 sat 100%. Left AC G20 patent and asymptomatic. Bed in lowest position. Side rails up x3. Will resume plan of care.
--- NOTE | 2019-12-12 10:03 | NUR ---
RADIOLOGY DEPT., CHEST X-RAYS COMPLETED.-P.DYE
[2019-12-12] MEDS ORDERED: propofoL 1,000mg/100ml 100 ML IV SCH ×2 (10:15→12:30)
--- NOTE | 2019-12-12 10:30 | NUR ---
RD ASSESSMENT & RECOMMENDATIONS SEE CARE ACTIVITY FOR COMPLETE ASSESSMENT DAILY ESTIMATED NEEDS: Needs based on critical care, obesity/ 72kg abw 20-25 kcals/kg [id number] total kcals 1.2-2g g protein/kg 86-145 g total protein Fluids per MD NUTRITION DIAGNOSIS: Swallowing difficulty R/T dysphagia, h/o Parkinson's, respiratory failure as evidenced by pt on soft bite size diet ATTENDANT CHILD ACTIVITY, now s/p oral intubation, w/ an order for NGT insertion, NPO at this time. CURRENT DIET: NPO ENTERAL NUTRITION RECOMMENDATIONS: Vital AF 1.2 @ 50ml/hr x 24 hrs to provide 1200ml, 1440kcal, 90g prot, 973ml free water * As medically appropriate, initiate Vital AF 1.2 @ 20ml/hr x 6hrs * Advance 10ml q 4-6 hrs as tolerated to goal * HOB over 30 degrees/ water flush per MD If IV Synthroid changes to Synthroid via NGT, hold 1 hr before and after Synthroid med -> Vital AF 1.2 @ 55ml/hr x 22 hrs to provide 1210ml, 1452kcal, 91g prot ADDITIONAL RECOMMENDATIONS: * Per SN[facility]: HT=68" [id number] (12/04/19) * Monitor lytes w/ TF, replete as needed * NISS w/ TF- h/o DM, A1C 6.4 * Monitor HD stability: without pressor support at this time * Skin integrity: f/up w/ WC eval TF @ goal will provide 100% RDI
--- NOTE | 2019-12-12 11:46 | NUR ---
NURSE NOTES: Ace and OGT inserted to the patient. STAT KUB ordered to check the placement of OGT.
[2019-12-12] MEDS ORDERED: Nitroglycerin Subl 0.4mg tab SL PRN (12:00)
--- NOTE | 2019-12-12 12:11 | Diagnostic Imaging Report ---
EXAM: ULTRASOUND Venous Duplex Scan Andrews Leg CLINICAL HISTORY: Leg pain and edema. COMPARISON: None TECHNIQUE: Doppler examination include grayscale images obtained with and without compression, and color and spectral doppler analysis. FINDINGS: Doppler examination shows normal spontaneity, phasicity, compressibility in the bilateral lower extremities. There is no thrombus identified by grayscale. Normal color and spectral flow is identified. There is no evidence of valvular incompetency or insufficiency. IMPRESSION: UNREMARKABLE VENOUS DUPLEX.
--- NOTE | 2019-12-12 12:13 | NUR ---
ST NOTE LINE AND FRAME POLER orders received on 12/11/[address] Ochoa for Bedside Swallow Evaluation. Chart review completed. LINE AND FRAME POLER went to bedside, Patient transferred to ICU and orally intubated on 12/12/19, therefore, no longer appropriate for LINE AND FRAME POLER Bedside Swallow Evaluation. LINE AND FRAME POLER informed RN of no Bedside Swallow Evaluation given Patient's intubation. RN expressed understanding. Patient would benefit from MD to re-refer Patient to LINE AND FRAME POLER for Bedside Swallow Evaluation s/p oral extubation and when Patient is medically appropriate. Thank you for this referral! LINE AND FRAME POLER [phone]
--- NOTE | 2019-12-12 12:13 | Diagnostic Imaging Report ---
EXAM: ULTRASOUND Venous Duplex UPPR EXT Bilat CLINICAL HISTORY: Upper extremity pain and swelling. COMPARISON: None TECHNIQUE: Doppler examination include grayscale images obtained with and without compression, and color and spectral doppler analysis. FINDINGS: Doppler examination shows normal spontaneity, phasicity, compressibility in the visualized segments of both upper extremities. There is no thrombus identified by grayscale. Normal color and spectral flow is identified. However the right cephalic and basilic veins and the left basilic vein are not well visualized. IMPRESSION: NO DVT NOTED IN THE VISUALIZED SEGMENTS BUT THE LEFT BASILIC AND RIGHT CEPHALIC AND BASILIC ARE NOT WELL SEEN.
--- NOTE | 2019-12-12 12:14 | Diagnostic Imaging Report ---
Procedure: XRAY Chest 1v Reason for study: Shortness of breath. Status post code. Endotracheal tube placement. Comparison films: 12/11/2019. FINDINGS: Endotracheal tube in good position. Vascularity is normal. Right basilar infiltrates not significantly changed. There is cardiomegaly and tortuous aorta. CP angles are sharp. The bony thorax appear unremarkable. IMPRESSION: Endotracheal tube in good position. No change bilateral infiltrates.
--- NOTE | 2019-12-12 12:28 | NUR ---
NURSE NOTES: Notified Dr Myers regarding ABG result and the current vent setting. Order for new vent setting received, noted, and carried out.
[2019-12-12] MEDS ORDERED: Acetaminophen 500mg (ES) tab ORAL PRN (12:30)
[2019-12-12] MEDS ORDERED: LORazepam 0.5mg tab ORAL PRN (12:31)
--- NOTE | 2019-12-12 12:35 | Consultation ---
History of Present Illness General Chief Complaint: Dyspnea/Respdistress Present Illness Allergies: Coded Allergies: LITHIUM (Verified Allergy, Unknown, 02/07/19) Medication History Scheduled Amantadine Hcl* (Amantadine*), 100 MG ORAL TWICE A DAY, (Reported) Aspirin* (Aspirin Ec*), 325 MG ORAL DAILY, (Reported) Atorvastatin Calcium* (Lipitor*), 10 MG ORAL BEDTIME, (Reported) Cranberry Conc/Ascorbic Acid (Cranberry Concentrate Softgel), 2 EACH PO DAILY, ( Reported) Divalproex Sodium (Depakote Sprinkle), 250 MG PO TID, (Reported) Docusate Sodium* (Colace*), 100 MG ORAL DAILY, (Reported) Enoxaparin* (Lovenox*), 0.4 ML SUBQ Q12HR, (Reported) Famotidine* (Pepcid 20mg tablet*), 20 MG ORAL DAILY, (Reported) Furosemide (Furosemide), 40 MG ORAL DAILY, (Reported) Furosemide* (Lasix*), 20 MG ORAL TIW, (Reported) Heparin Sod (Porcine) (Heparin Sodium*), 5,000 UNITS SUBQ EVERY 12 HOURS, ( Reported) Levothyroxine Sodium* (Synthroid*), 150 MCG ORAL DAILY, (Reported) Olanzapine* (Zyprexa*), 10 MG ORAL BID, (Reported) Scheduled PRN Acetaminophen* (Acetaminophen 325MG Tablet*), 650 MG ORAL Q6H PRN for Mild Pain (Pain Scale 1-3), (Reported) Bisacodyl (Dulcolax), 10 MG RC for CONSTIPATION, (Reported) Clonidine Hcl (Clonidine Hcl), 0.1 MG PO Q6HR PRN for For High Blood Pressure, ( Reported) Guaifenesin* (Guaifenesin*), 10 ML ORAL Q4HR PRN for For Cough, (Reported) Ipratropium/Albuterol Sulfate (DuoNeb 0.5-3(2.5)mg/3ml), 3 ML HHN Q4HR PRN for Shortness of Breath, (Reported) Magnesium Hydroxide* (Milk Of Magnesia*), 30 ML ORAL QHS PRN for Constipation, ( Reported) Nitroglycerin 0.4MG table* (Nitroglycerin*), 0.4 MG SL .Q5MIN X 3 DOSES PRN for CHEST PAIN, (Reported) Ondansetron* (Zofran*), 4 MG ORAL Q4HR PRN for Nausea & Vomiting, (Reported) Miscellaneous Medications Haloperidol Decanoate (Haldol Decanoate 50), 50 MG IM, (Reported) Patient History Healthcare decision maker Resuscitation status Advanced Directive on File Physical Exam Last 24 Hour Vital Signs Date Time Temp Pulse Resp B/P (MAP) Pulse Ox O2 Delivery O2 Flow Rate FiO2 12/12/19 12:28 55 12/12/19 12:01 65 20 100 12/12/19 12:00 98.9 65 20 105/33 (57) 100 12/12/19 12:00 67 12/12/19 11:45 Endotracheal Tube 12/12/19 11:00 66 21 112/36 (61) 94 12/12/19 10:20 Endotracheal Tube 12/12/19 10:00 66 19 107/31 (56) 98 12/12/19 09:00 75 19 99/43 (61) 100 12/12/19 08:51 98.8 77 20 100/40 (60) 100 12/12/19 08:50 100 12/12/19 08:50 74 20 100 12/12/19 08:47 87 12/12/19 08:00 Non-Rebreather 15.0 12/12/19 08:00 99.1 70 16 124/54 (77) 100 12/12/19 04:00 97.8 78 16 115/55 (75) 100 12/12/19 04:00 69 12/12/19 04:00 Non-Rebreather 15.0 12/12/19 00:00 69 12/12/19 00:00 Non-Rebreather 15.0 12/12/19 00:00 95.0 65 21 112/57 (75) 100 12/11/19 22:04 Non-Rebreather 15.0 12/11/19 20:36 66 12/11/19 20:00 97.7 72 20 110/45 (66) 100 12/11/19 19:14 98.9 76 21 116/74 100 Non-Rebreather 15.0 12/11/19 17:50 99.0 74 21 127/60 99 Non-Rebreather 15.0 12/11/19 16:03 126/71 12/11/19 15:50 99.0 78 24 135/79 98 Non-Rebreather 15.0 12/11/19 13:50 99.0 93 23 140/66 98 Non-Rebreather 15.0 12/11/19 13:50 93 23 Non-Rebreather 15.0 12/11/19 13:24 99.0 93 23 140/66 (90) 98 Non-Rebreather 15.0 Intake and Output 12/11/19 12/12/19 19:00 07:00 Intake Total 605 ml Balance 605 ml Intake IV Total 605 ml # Voids 1 1 Laboratory Tests Test 12/11/19 13:43 12/11/19 14:10 12/12/19 03:30 12/12/19 07:43 Arterial Blood pH 7.340 (7.350-7.450) 7.163 (7.350-7.450) Arterial Blood Partial Pressure CO2 54.3 mmHg (35.0-45.0) H 93.3 mmHg (35.0-45.0) *H Arterial Blood Partial Pressure O2 130.3 mmHg (75.0-100.0) H 181.0 mmHg (75.0-100.0) H Arterial Blood HCO3 28.6 mmol/L (22.0-26.0) H 32.7 mmol/L (22.0-26.0) H Arterial Blood Oxygen Saturation 98.1 % (95-100) 98.7 % (95-100) Arterial Blood Base Excess 98.1 (-2-2) *H 1.6 (-2-2) Raphael Test Positive Positive White Blood Count 4.9 K/UL (4.8-10.8) 6.5 K/UL (4.8-10.8) Red Blood Count 3.73 M/UL (4.20-5.40) L 3.61 M/UL (4.20-5.40) L Hemoglobin 12.3 G/DL (12.0-16.0) 11.9 G/DL (12.0-16.0) L Hematocrit 37.6 % (37.0-47.0) 37.3 % (37.0-47.0) Mean Corpuscular Volume 101 FL (80-99) H 103 FL (80-99) H Mean Corpuscular Hemoglobin 33.1 PG (27.0-31.0) H 32.9 PG (27.0-31.0) H Mean Corpuscular Hemoglobin Concent 32.9 G/DL (32.0-36.0) 31.9 G/DL (32.0-36.0) L Red Cell Distribution Width 13.1 % (11.6-14.8) 13.7 % (11.6-14.8) Platelet Count 237 K/UL (150-450) 238 K/UL (150-450) Mean Platelet Volume 7.3 FL (6.5-10.1) 7.1 FL (6.5-10.1) Neutrophils (%) (Auto) 68.1 % (45.0-75.0) 83.4 % (45.0-75.0) H Lymphocytes (%) (Auto) 22.1 % (20.0-45.0) 11.3 % (20.0-45.0) L Monocytes (%) (Auto) 8.6 % (1.0-10.0) 4.8 % (1.0-10.0) Eosinophils (%) (Auto) 0.2 % (0.0-3.0) 0.0 % (0.0-3.0) Basophils (%) (Auto) 1.0 % (0.0-2.0) 0.5 % (0.0-2.0) Prothrombin Time 12.2 SEC (9.30-11.50) H Prothromb Time International Ratio 1.1 (0.9-1.1) Activated Partial Thromboplast Time 31 SEC (23-33) D-Dimer 2.04 mg/L FEU (0.00-0.49) H Urine Color Pale yellow Urine Appearance Clear Urine pH 5 (4.5-8.0) Urine Specific [place] 1.015 (1.005-1.035) Urine Protein 3+ (NEGATIVE) H Urine Glucose (UA) Negative (NEGATIVE) Urine Ketones Negative (NEGATIVE) Urine Blood 1+ (NEGATIVE) H Urine Nitrite Negative (NEGATIVE) Urine Bilirubin Negative (NEGATIVE) Urine Urobilinogen Normal MG/DL (0.0-1.0) Urine Leukocyte Esterase 1+ (NEGATIVE) H Urine RBC 0-2 /HPF (0 - 2) Urine WBC 0-2 /HPF (0 - 2) Urine Squamous Epithelial Cells Few /LPF (NONE/OCC) Urine Bacteria Few /HPF (NONE) Sodium Level 130 MMOL/L (136-145) L 133 MMOL/L (136-145) L Potassium Level 4.4 MMOL/L (3.5-5.1) 4.2 MMOL/L (3.5-5.1) Chloride Level 92 MMOL/L (98-107) L 95 MMOL/L (98-107) L Carbon Dioxide Level 30 MMOL/L (21-32) 32 MMOL/L (21-32) Anion Gap 8 mmol/L (5-15) 6 mmol/L (5-15) Blood Urea Nitrogen 25 mg/dL (7-18) H 32 mg/dL (7-18) H Creatinine 1.0 MG/DL (0.55-1.30) 1.2 MG/DL (0.55-1.30) Estimat Glomerular Filtration Rate 53.3 mL/min (>60) 43.3 mL/min (>60) Glucose Level 102 MG/DL (74-106) 106 MG/DL (74-106) Lactic Acid Level 1.10 mmol/L (0.4-2.0) Calcium Level 8.6 MG/DL (8.5-10.1) 7.9 MG/DL (8.5-10.1) L Magnesium Level 2.3 MG/DL (1.8-2.4) 2.2 MG/DL (1.8-2.4) Ferritin 57 NG/ML (8-388) Total Bilirubin 1.0 MG/DL (0.2-1.0) 0.6 MG/DL (0.2-1.0) Aspartate Amino Transf (AST/SGOT) 139 U/L (15-37) H 91 U/L (15-37) H Alanine Aminotransferase (ALT/SGPT) 215 U/L (12-78) H 184 U/L (12-78) H Alkaline Phosphatase 68 U/L (46-116) 64 U/L (46-116) Lactate Dehydrogenase 685 U/L (81-234) H Troponin I 0.056 ng/mL (0.000-0.056) 0.050 ng/mL (0.000-0.056) C-Reactive Protein, Quantitative < 0.4 mg/dL (0.00-0.90) 0.5 mg/dL (0.00-0.90) Pro-B-Type Natriuretic Peptide 24690 pg/mL (0-125) H 55670 pg/mL (0-125) H Total Protein 7.7 G/DL (6.4-8.2) 7.1 G/DL (6.4-8.2) Albumin 4.6 G/DL (3.4-5.0) 4.1 G/DL (3.4-5.0) Globulin 3.1 g/dL 3.0 g/dL Albumin/Globulin Ratio 1.5 (1.0-2.7) 1.4 (1.0-2.7) Valproic Acid (Depakene) Level 3 MCG/ML (50-100) L Hemoglobin A1c 6.4 % (4.3-6.0) H Uric Acid 7.6 MG/DL (2.6-7.2) H Phosphorus Level 5.6 MG/DL (2.5-4.9) H Gamma Glutamyl Transpeptidase 31 U/L (5-85) Triglycerides Level 111 MG/DL (30-150) Cholesterol Level 238 MG/DL (< 200) H LDL Cholesterol 151 mg/dL (<100) H HDL Cholesterol 59 MG/DL (40-60) Cholesterol/HDL Ratio 4.0 (3.3-4.4) Vitamin B12 Level 755 PG/ML (193-986) Folate 18.5 NG/ML (8.6-58.9) Thyroid Stimulating Hormone (TSH) 21.992 uiU/mL (0.358-3.740) Test 12/12/19 08:01 12/12/19 12:05 POC Whole Blood Glucose Pending Arterial Blood pH 7.500 (7.350-7.450) Arterial Blood Partial Pressure CO2 39.3 mmHg (35.0-45.0) Arterial Blood Partial Pressure O2 466.3 mmHg (75.0-100.0) H Arterial Blood HCO3 30.0 mmol/L (22.0-26.0) H Arterial Blood Oxygen Saturation 99.5 % (95-100) Arterial Blood Base Excess 6.4 (-2-2) H Raphael Test Positive Microbiology Date/Time Source Procedure Growth Status 12/11/19 18:00 Rectum Received Height (Feet): 5 Height (Inches): 7.00 Weight (Pounds): 216 Medications Current Medications Medications (Trade) Dose Ordered Sig/Angie Route PRN Reason Start Time Stop Time Status Last Admin Dose Admin Acetaminophen (Tylenol) 650 mg Q6H PRN ORAL Mild Pain (Pain Scale 1-3) 12/12/19 12:30 01/11/20 12:29 Acetaminophen (Tylenol) 1,000 mg Q6H PRN ORAL MODERATE PAIN 12/12/19 12:30 01/11/20 12:29 Amantadine HCl (Symmetrel) 100 mg TWICE A DAY ORAL 12/12/19 18:00 01/11/20 08:59 Aspirin (Ecotrin) 325 mg DAILY ORAL 12/13/19 09:00 01/26/20 08:59 Atorvastatin Calcium (Lipitor) 10 mg BEDTIME ORAL 12/12/19 21:00 03/11/20 20:59 Calcium Carbonate (Os-Octavio) 1,250 mg THREE TIMES A DAY ORAL 12/12/19 13:00 03/11/20 09:59 Clonidine HCl (Catapres Tab) 0.1 mg Q6H PRN ORAL For high BP over 160 systolic 12/12/19 12:31 03/11/20 12:30 Divalproex Sodium (Depakote) 250 mg EVERY 12 HOURS ORAL 12/12/19 21:00 01/11/20 08:59 Docusate Sodium (Colace) 100 mg TIAC ORAL 12/12/19 16:30 01/11/20 06:29 Furosemide (Lasix) 20 mg DAILY IV 12/13/19 09:00 01/11/20 08:59 Levothyroxine Sodium (Synthroid) 50 mcg DAILY IV 12/13/19 09:00 01/11/20 09:29 Lorazepam (Ativan) 1 mg Q6H PRN ORAL For Anxiety 12/12/19 12:31 12/19/19 12:30 Nitroglycerin (Ntg) 0.4 mg Q5MIN X 3 DOSES PRN SL CHEST PAIN 12/12/19 12:00 01/10/20 21:44 Olanzapine (ZyPREXA) 5 mg BID ORAL 12/12/19 18:00 01/26/20 08:59 Pantoprazole (Protonix) 40 mg EVERY 12 HOURS ORAL 12/12/19 21:00 01/11/20 08:59 Propofol 100 ml @ 0 mls/hr Q24H IV 12/12/19 12:30 12/14/19 12:29 Sodium Chloride 1,000 ml @ 50 mls/hr Q20H IV 12/12/19 12:30 01/11/20 12:29 Assessment/Plan Assessment/Plan: Hematoloy Consultation Covering Dr. Dani Gardner RFA: Resp failure, lower ext edema DOS: 12/12/2019 HPI 79y old female, brought in by paramedics with reports of desaturation and shortness of breath, she is well known to me, from before Patient himself is nonverbal cannot provide any input This does limit the history of present illness Unknown regarding recent cough unknown regarding fever patient appears to have been here recently with significant COPD And respiratory distress She has been admitted here with similar findings in the past was intibated at this time and transferred to the icu Allergies: Coded Allergies: LITHIUM (Verified Allergy, Unknown, 02/07/19) Patient History Limited by: medical condition Past Medical History: see triage record Reviewed Nursing Documentation: PMH: Agreed; PSxH: Agreed Nursing Documentation-PMH Hx Cardiac Problems: Yes - Hyperlipidemia, Hypothyroidism, Parkinson'sm Hypocalcemia, Hx COPD: Yes Hx Cancer: No Hx Gastrointestinal Problems: No Hx Neurological Problems: Yes Hx Dementia: Yes Hx Parkinson's Disease: Yes Review of Systems All Other Systems difficult to obtain, is intubated Physical Exam: Vitals: reviewed General: NAD HEENT: nc, at Neck: supple ++intubated Chest: decreased breath sounds bilaterally Cardiovascular: RRR, no s3, s4 Abdomen: soft, nontender, nd Extremities: 1-2 + edema Neuro: nonverbal Labs noted Imaging: reviewed Assessment and Recs # Lower extremity edema in setting of elevated ddimer --> lower ext duplex ordered to r/o dvt --> lovenox sq has been started --> low threshold for v/q or cta r/o pe # Anemia of chronic disease --> hgb 11-->10.-->9->11.9 --> no bleeding reported --> smear reviewed --> no go bleeding # Respiratory failure with copd exacerbation likely --> has since been intuabtd --> pulm toilet --> breathing rx --> steriods prn basis --> pulm eval ---> ABX per id # 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
--- NOTE | 2019-12-12 12:44 | NUR ---
NURSE NOTES: Started Propofol drip at 5mcg/kg/min since RASS score is -1 restless and agitated. Will monitor patient and titrate the dose as per protocol.
[2019-12-12] MEDS: propofoL 1,000mg/100ml 100 ML IV SCH (12:50)
--- NOTE | 2019-12-12 12:57 | Cardiac Electrophysiology PN ---
Subjective Subjective [id number] Objective Last 24 Hour Vital Signs Date Time Temp Pulse Resp B/P (MAP) Pulse Ox O2 Delivery O2 Flow Rate FiO2 12/12/19 12:47 50 12/12/19 12:44 15 106/36 50 12/12/19 12:28 50 12/12/19 12:01 65 20 100 12/12/19 12:00 98.9 65 20 105/33 (57) 100 12/12/19 12:00 67 12/12/19 11:45 Endotracheal Tube 12/12/19 11:00 66 21 112/36 (61) 94 12/12/19 10:20 Endotracheal Tube 12/12/19 10:00 66 19 107/31 (56) 98 12/12/19 09:00 75 19 99/43 (61) 100 12/12/19 08:51 98.8 77 20 100/40 (60) 100 12/12/19 08:50 100 12/12/19 08:50 74 20 100 12/12/19 08:47 87 12/12/19 08:00 Non-Rebreather 15.0 12/12/19 08:00 99.1 70 16 124/54 (77) 100 12/12/19 04:00 97.8 78 16 115/55 (75) 100 12/12/19 04:00 69 12/12/19 04:00 Non-Rebreather 15.0 12/12/19 00:00 69 12/12/19 00:00 Non-Rebreather 15.0 12/12/19 00:00 95.0 65 21 112/57 (75) 100 12/11/19 22:04 Non-Rebreather 15.0 12/11/19 20:36 66 12/11/19 20:00 97.7 72 20 110/45 (66) 100 12/11/19 19:14 98.9 76 21 116/74 100 Non-Rebreather 15.0 12/11/19 17:50 99.0 74 21 127/60 99 Non-Rebreather 15.0 12/11/19 16:03 126/71 12/11/19 15:50 99.0 78 24 135/79 98 Non-Rebreather 15.0 12/11/19 13:50 99.0 93 23 140/66 98 Non-Rebreather 15.0 12/11/19 13:50 93 23 Non-Rebreather 15.0 12/11/19 13:24 99.0 93 23 140/66 (90) 98 Non-Rebreather 15.0 Intake and Output 12/11/19 12/12/19 19:00 07:00 Intake Total 605 ml Balance 605 ml Intake IV Total 605 ml # Voids 1 1 Laboratory Tests Test 12/11/19 13:43 12/11/19 14:10 12/12/19 03:30 12/12/19 07:43 Arterial Blood pH 7.340 (7.350-7.450) 7.163 (7.350-7.450) Arterial Blood Partial Pressure CO2 54.3 mmHg (35.0-45.0) H 93.3 mmHg (35.0-45.0) *H Arterial Blood Partial Pressure O2 130.3 mmHg (75.0-100.0) H 181.0 mmHg (75.0-100.0) H Arterial Blood HCO3 28.6 mmol/L (22.0-26.0) H 32.7 mmol/L (22.0-26.0) H Arterial Blood Oxygen Saturation 98.1 % (95-100) 98.7 % (95-100) Arterial Blood Base Excess 98.1 (-2-2) *H 1.6 (-2-2) Raphael Test Positive Positive White Blood Count 4.9 K/UL (4.8-10.8) 6.5 K/UL (4.8-10.8) Red Blood Count 3.73 M/UL (4.20-5.40) L 3.61 M/UL (4.20-5.40) L Hemoglobin 12.3 G/DL (12.0-16.0) 11.9 G/DL (12.0-16.0) L Hematocrit 37.6 % (37.0-47.0) 37.3 % (37.0-47.0) Mean Corpuscular Volume 101 FL (80-99) H 103 FL (80-99) H Mean Corpuscular Hemoglobin 33.1 PG (27.0-31.0) H 32.9 PG (27.0-31.0) H Mean Corpuscular Hemoglobin Concent 32.9 G/DL (32.0-36.0) 31.9 G/DL (32.0-36.0) L Red Cell Distribution Width 13.1 % (11.6-14.8) 13.7 % (11.6-14.8) Platelet Count 237 K/UL (150-450) 238 K/UL (150-450) Mean Platelet Volume 7.3 FL (6.5-10.1) 7.1 FL (6.5-10.1) Neutrophils (%) (Auto) 68.1 % (45.0-75.0) 83.4 % (45.0-75.0) H Lymphocytes (%) (Auto) 22.1 % (20.0-45.0) 11.3 % (20.0-45.0) L Monocytes (%) (Auto) 8.6 % (1.0-10.0) 4.8 % (1.0-10.0) Eosinophils (%) (Auto) 0.2 % (0.0-3.0) 0.0 % (0.0-3.0) Basophils (%) (Auto) 1.0 % (0.0-2.0) 0.5 % (0.0-2.0) Prothrombin Time 12.2 SEC (9.30-11.50) H Prothromb Time International Ratio 1.1 (0.9-1.1) Activated Partial Thromboplast Time 31 SEC (23-33) D-Dimer 2.04 mg/L FEU (0.00-0.49) H Urine Color Pale yellow Urine Appearance Clear Urine pH 5 (4.5-8.0) Urine Specific [place] 1.015 (1.005-1.035) Urine Protein 3+ (NEGATIVE) H Urine Glucose (UA) Negative (NEGATIVE) Urine Ketones Negative (NEGATIVE) Urine Blood 1+ (NEGATIVE) H Urine Nitrite Negative (NEGATIVE) Urine Bilirubin Negative (NEGATIVE) Urine Urobilinogen Normal MG/DL (0.0-1.0) Urine Leukocyte Esterase 1+ (NEGATIVE) H Urine RBC 0-2 /HPF (0 - 2) Urine WBC 0-2 /HPF (0 - 2) Urine Squamous Epithelial Cells Few /LPF (NONE/OCC) Urine Bacteria Few /HPF (NONE) Sodium Level 130 MMOL/L (136-145) L 133 MMOL/L (136-145) L Potassium Level 4.4 MMOL/L (3.5-5.1) 4.2 MMOL/L (3.5-5.1) Chloride Level 92 MMOL/L (98-107) L 95 MMOL/L (98-107) L Carbon Dioxide Level 30 MMOL/L (21-32) 32 MMOL/L (21-32) Anion Gap 8 mmol/L (5-15) 6 mmol/L (5-15) Blood Urea Nitrogen 25 mg/dL (7-18) H 32 mg/dL (7-18) H Creatinine 1.0 MG/DL (0.55-1.30) 1.2 MG/DL (0.55-1.30) Estimat Glomerular Filtration Rate 53.3 mL/min (>60) 43.3 mL/min (>60) Glucose Level 102 MG/DL (74-106) 106 MG/DL (74-106) Lactic Acid Level 1.10 mmol/L (0.4-2.0) Calcium Level 8.6 MG/DL (8.5-10.1) 7.9 MG/DL (8.5-10.1) L Magnesium Level 2.3 MG/DL (1.8-2.4) 2.2 MG/DL (1.8-2.4) Ferritin 57 NG/ML (8-388) Total Bilirubin 1.0 MG/DL (0.2-1.0) 0.6 MG/DL (0.2-1.0) Aspartate Amino Transf (AST/SGOT) 139 U/L (15-37) H 91 U/L (15-37) H Alanine Aminotransferase (ALT/SGPT) 215 U/L (12-78) H 184 U/L (12-78) H Alkaline Phosphatase 68 U/L (46-116) 64 U/L (46-116) Lactate Dehydrogenase 685 U/L (81-234) H Troponin I 0.056 ng/mL (0.000-0.056) 0.050 ng/mL (0.000-0.056) C-Reactive Protein, Quantitative < 0.4 mg/dL (0.00-0.90) 0.5 mg/dL (0.00-0.90) Pro-B-Type Natriuretic Peptide 68587 pg/mL (0-125) H 23540 pg/mL (0-125) H Total Protein 7.7 G/DL (6.4-8.2) 7.1 G/DL (6.4-8.2) Albumin 4.6 G/DL (3.4-5.0) 4.1 G/DL (3.4-5.0) Globulin 3.1 g/dL 3.0 g/dL Albumin/Globulin Ratio 1.5 (1.0-2.7) 1.4 (1.0-2.7) Valproic Acid (Depakene) Level 3 MCG/ML (50-100) L Hemoglobin A1c 6.4 % (4.3-6.0) H Uric Acid 7.6 MG/DL (2.6-7.2) H Phosphorus Level 5.6 MG/DL (2.5-4.9) H Gamma Glutamyl Transpeptidase 31 U/L (5-85) Triglycerides Level 111 MG/DL (30-150) Cholesterol Level 238 MG/DL (< 200) H LDL Cholesterol 151 mg/dL (<100) H HDL Cholesterol 59 MG/DL (40-60) Cholesterol/HDL Ratio 4.0 (3.3-4.4) Vitamin B12 Level 755 PG/ML (193-986) Folate 18.5 NG/ML (8.6-58.9) Thyroid Stimulating Hormone (TSH) 21.992 uiU/mL (0.358-3.740) Test 12/12/19 08:01 12/12/19 12:05 POC Whole Blood Glucose Pending Arterial Blood pH 7.500 (7.350-7.450) Arterial Blood Partial Pressure CO2 39.3 mmHg (35.0-45.0) Arterial Blood Partial Pressure O2 466.3 mmHg (75.0-100.0) H Arterial Blood HCO3 30.0 mmol/L (22.0-26.0) H Arterial Blood Oxygen Saturation 99.5 % (95-100) Arterial Blood Base Excess 6.4 (-2-2) H Raphael Test Positive Microbiology Date/Time Source Procedure Growth Status 12/11/19 18:00 Rectum Received Cameron Davies MD Dec 12, 2019 12:57
[2019-12-12] MEDS: Os-Cal (Oyster Shell) 500mg tab ORAL SCH ×2 (13:00→17:43)
--- NOTE | 2019-12-12 13:00 | Consultation ---
DATE OF CONSULTATION: 12/12/2019 PULMONARY CONSULTATION CONSULTING PHYSICIAN: Sincere Myers MD. REFERRING PHYSICIAN: Dani Perera MD. REASON FOR CONSULTATION: Respiratory failure. HISTORY OF PRESENT ILLNESS: This is an 79-year-old female who was brought to the hospital with respiratory distress. She had dyspnea. She was hypoxic. She was placed on BiPAP initially and placed in the LISET; however, due to ongoing respiratory acidosis and altered mental status, she had been intubated this morning. PAST MEDICAL HISTORY: Previous hypoxic respiratory failure requiring BiPAP, history of hypothyroidism, COPD, Parkinson's, dementia, KAT, hypertension, mitral regurgitation, schizophrenia, obesity. PAST SURGICAL HISTORY: None. ALLERGIES: [place]. HOME MEDICATIONS: Reviewed and reconciled in the chart. PHYSICAL EXAMINATION: GENERAL: Reveals an obese female. VITAL SIGNS: Blood pressure at this time is 115/50, heart rate is 70, respirations 20. O2 saturation is currently 99% after being intubated. HEENT: Unremarkable. CHEST AND LUNGS: Decreased breath sounds bilaterally. HEART: Normal heart sounds. ABDOMEN: Soft. EXTREMITIES: There is 1+ edema. NEUROLOGIC: She is currently intubated. IMAGING STUDIES: X-ray chest was obtained, which shows bibasilar infiltrates suspicious for either fluid or pneumonia. LABORATORY DATA: Lab testing shows normal CBC with a hemoglobin of 11. Sodium 133, creatinine 1.2. D-dimer 2.0. Urinalysis is negative. IMPRESSION: 1. Respiratory failure. 2. Rule out healthcare-associated pneumonia versus COVID-19. 3. Psych disorder. 4. Obesity. 5. Hypertension. DISCUSSION: Admit to the hospital. We will start broad spectrum antibiotics. Start propofol. We will manage respirator, currently on AC mode 100% FiO2 and PEEP of 5. We will order COVID-19 swab. We will follow carefully. Sincere Myers M.D. DR: MIMA JOB#: [id number] CC:
--- NOTE | 2019-12-12 13:06 | NUR ---
RADIOLOGY DEPT., ABDOMEN X-RAY FOR OGT TUBE [id number]
--- NOTE | 2019-12-12 13:12 | Nephrology Progress Note ---
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 Respiratory distress most likely secondary to pulmonary edema and or COPD exacerbation. Hyponatremia. Obese. Hypothyroidism. Elevated d-dimer. Elevated liver enzymes Plan Arterial blood gas indicative of CO2 retention. Patient on the way to ICU for intubation. Continue per pulmonary management. Pulmonary support, Check 2D echocardiogram. Previous 2D echo had a 50% ejection fraction. Keep blood sugar and blood pressure in check. Thyroid panel. Monitor electrolytes and renal parameters. Afterload reduction. Diuretics Monitor serum calcium, supplements via NG tube. Per orders. Subjective ROS Limited/Unobtainable: No Interval Events/Complaints Patient seen in the morning right before transfer to ICU for intubation Constitutional: Reports: malaise Objective Objective Last 24 Hour Vital Signs Date Time Temp Pulse Resp B/P (MAP) Pulse Ox O2 Delivery O2 Flow Rate FiO2 12/12/19 12:47 50 12/12/19 12:44 15 106/36 50 12/12/19 12:28 50 12/12/19 12:01 65 20 100 12/12/19 12:00 98.9 65 20 105/33 (57) 100 12/12/19 12:00 67 12/12/19 11:45 Endotracheal Tube 12/12/19 11:00 66 21 112/36 (61) 94 12/12/19 10:20 Endotracheal Tube 12/12/19 10:00 66 19 107/31 (56) 98 12/12/19 09:00 75 19 99/43 (61) 100 12/12/19 08:51 98.8 77 20 100/40 (60) 100 12/12/19 08:50 100 12/12/19 08:50 74 20 100 12/12/19 08:47 87 12/12/19 08:00 Non-Rebreather 15.0 12/12/19 08:00 99.1 70 16 124/54 (77) 100 12/12/19 04:00 97.8 78 16 115/55 (75) 100 12/12/19 04:00 69 12/12/19 04:00 Non-Rebreather 15.0 12/12/19 00:00 69 12/12/19 00:00 Non-Rebreather 15.0 12/12/19 00:00 95.0 65 21 112/57 (75) 100 12/11/19 22:04 Non-Rebreather 15.0 12/11/19 20:36 66 12/11/19 20:00 97.7 72 20 110/45 (66) 100 12/11/19 19:14 98.9 76 21 116/74 100 Non-Rebreather 15.0 12/11/19 17:50 99.0 74 21 127/60 99 Non-Rebreather 15.0 12/11/19 16:03 126/71 12/11/19 15:50 99.0 78 24 135/79 98 Non-Rebreather 15.0 12/11/19 13:50 99.0 93 23 140/66 98 Non-Rebreather 15.0 12/11/19 13:50 93 23 Non-Rebreather 15.0 12/11/19 13:24 99.0 93 23 140/66 (90) 98 Non-Rebreather 15.0 Intake and Output 12/11/19 12/12/19 19:00 07:00 Intake Total 605 ml Balance 605 ml Intake IV Total 605 ml # Voids 1 1 Laboratory Tests 12/11/19 13:43: Arterial Blood pH 7.340L, Arterial Blood Partial Pressure CO2 54.3H, Arterial Blood Partial Pressure O2 130.3H, Arterial Blood HCO3 28.6H, Arterial Blood Oxygen Saturation 98.1, Arterial Blood Base Excess 98.1*H, Raphael Test Positive 12/11/19 14:10: White Blood Count 4.9, Red Blood Count 3.73L, Hemoglobin 12.3, Hematocrit 37.6, Mean Corpuscular Volume 101H, Mean Corpuscular Hemoglobin 33.1H, Mean Corpuscular Hemoglobin Concent 32.9, Red Cell Distribution Width 13.1, Platelet Count 237, Mean Platelet Volume 7.3, Neutrophils (%) (Auto) 68.1, Lymphocytes (% ) (Auto) 22.1, Monocytes (%) (Auto) 8.6, Eosinophils (%) (Auto) 0.2, Basophils ( %) (Auto) 1.0, Prothrombin Time 12.2H, Prothromb Time International Ratio 1.1, Activated Partial Thromboplast Time 31, D-Dimer 2.04H, Urine Color Pale yellow, Urine Appearance Clear, Urine pH 5, Urine Specific Ong 1.015, Urine Protein 3+H, Urine Glucose (UA) Negative, Urine Ketones Negative, Urine Blood 1+H, Urine Nitrite Negative, Urine Bilirubin Negative, Urine Urobilinogen Normal, Urine Leukocyte Esterase 1+H, Urine RBC 0-2, Urine WBC 0-2, Urine Squamous Epithelial Cells Few, Urine Bacteria Few, Sodium Level 130L, Potassium Level 4.4 , Chloride Level 92L, Carbon Dioxide Level 30, Anion Gap 8, Blood Urea Nitrogen 25H, Creatinine 1.0, Estimat Glomerular Filtration Rate 53.3, Glucose Level 102 , Lactic Acid Level 1.10, Calcium Level 8.6, Magnesium Level 2.3, Ferritin 57, Total Bilirubin 1.0, Aspartate Amino Transf (AST/SGOT) 139H, Alanine Aminotransferase (ALT/SGPT) 215H, Alkaline Phosphatase 68, Lactate Dehydrogenase 685H, Troponin I 0.056, C-Reactive Protein, Quantitative < 0.4, Pro-B-Type Natriuretic Peptide 84443X, Total Protein 7.7, Albumin 4.6, Globulin 3.1, Albumin/Globulin Ratio 1.5, Valproic Acid (Depakene) Level 3L 12/12/19 03:30: White Blood Count 6.5, Red Blood Count 3.61L, Hemoglobin 11.9L, Hematocrit 37.3 , Mean Corpuscular Volume 103H, Mean Corpuscular Hemoglobin 32.9H, Mean Corpuscular Hemoglobin Concent 31.9L, Red Cell Distribution Width 13.7, Platelet Count 238, Mean Platelet Volume 7.1, Neutrophils (%) (Auto) 83.4H, Lymphocytes (%) (Auto) 11.3L, Monocytes (%) (Auto) 4.8, Eosinophils (%) (Auto) 0.0, Basophils (%) (Auto) 0.5, Sodium Level 133L, Potassium Level 4.2, Chloride Level 95L, Carbon Dioxide Level 32, Anion Gap 6, Blood Urea Nitrogen 32H, Creatinine 1.2, Estimat Glomerular Filtration Rate 43.3, Glucose Level 106, Calcium Level 7.9L, Magnesium Level 2.2, Total Bilirubin 0.6, Aspartate Amino Transf (AST/SGOT) 91H, Alanine Aminotransferase (ALT/SGPT) 184H, Alkaline Phosphatase 64, Troponin I 0.050, C-Reactive Protein, Quantitative 0.5, Pro-B- Type Natriuretic Peptide 68262H, Total Protein 7.1, Albumin 4.1, Globulin 3.0, Albumin/Globulin Ratio 1.4, Hemoglobin A1c 6.4H, Uric Acid 7.6H, Phosphorus Level 5.6H, Gamma Glutamyl Transpeptidase 31, Triglycerides Level 111, Cholesterol Level 238H, LDL Cholesterol 151H, HDL Cholesterol 59, Cholesterol/ HDL Ratio 4.0, Vitamin B12 Level 755, Folate 18.5, Thyroid Stimulating Hormone ( TSH) 21.992H 12/12/19 07:43: Arterial Blood pH 7.163*L, Arterial Blood Partial Pressure CO2 93.3*H, Arterial Blood Partial Pressure O2 181.0H, Arterial Blood HCO3 32.7H, Arterial Blood Oxygen Saturation 98.7, Arterial Blood Base Excess 1.6, Raphael Test Positive 12/12/19 08:01: POC Whole Blood Glucose [Pending] 12/12/19 12:05: Arterial Blood pH 7.500H, Arterial Blood Partial Pressure CO2 39.3, Arterial Blood Partial Pressure O2 466.3H, Arterial Blood HCO3 30.0H, Arterial Blood Oxygen Saturation 99.5, Arterial Blood Base Excess 6.4H, Raphael Test Positive Height (Feet): 5 Height (Inches): 7.00 Weight (Pounds): 216 General Appearance: lethargic, other - Nonverbal Cardiovascular: tachycardia Abdomen: distended Bryan Ochoa MD Dec 12, 2019 13:12
--- NOTE | 2019-12-12 14:00 | NUR ---
NURSE NOTES: Increased Propofol to 10mcg/kg/min to keep RASS -2 as per protocol. Patient can be still impulsive at times and reach ETT. Will keep bilateral soft wrist restraints.
--- NOTE | 2019-12-12 14:44 | NUR ---
CASE MANAGEMENT: REVIEW 79 YEAR OLD FEMALE BIBA FROM [facility] CC: RESP DISTRESS SI: ACUTE RESPIRATORY FAILURE . CHF . DM T 99.0 HR 93 RR 23 BP 140/66 SAT 98% NON-REBREATHER 15.0 DESATURATION >> TRANSFER TO ICU >> ORAL INTUBATION FIO2 100% ABG: PH 7.340 PCO2 54.3 PO2 130.2 HCO3 28.6 BAS 98.1 IS: DECADRON IV X1 VANCOMYCIN IV X1 AZITHROMYCIN IV X1 CEFTRIAXONE IV X1 LASIX 20MG IV X1 NITRO BID TOPICAL 1 INCH X1 PATIENT ADMITTED TO STEP DOWN UNIT 11/14/2019 TRANSFERRED TO ICU 12/12/2019 DCP: PATIENT IS FROM [facility]
--- NOTE | 2019-12-12 15:50 | Diagnostic Imaging Report ---
Indication: Post orogastric tube placement Technique: One view of the upper abdomen Comparison: none Findings: There is an orogastric tube in place, tip projecting at the level of the gastric antrum body junction. Bowel gas pattern is unremarkable. Atelectasis and/or pleural fluid is incidentally noted at the left lung base. There is an endotracheal tube in satisfactory position Impression: Satisfactory placement of orogastric tube, suitable for use. ICU nurse Jean notified at the time of interpretation Other findings as noted
--- NOTE | 2019-12-12 16:30 | NUR ---
NURSE NOTES: Cleaned and repositioned patient. Pt is on Propofol drip at 10mcg/kg/min. Kept RASS -2. O2 sat 98% on FiO2 40%. Will continue to monitor.
[2019-12-12] MEDS: Cefepime HCl 1 GM in D5W 55 ML IVPB SCH (16:52)
[2019-12-12] MEDS: Docusate 100mg cap ORAL SCH (16:52)
--- NOTE | 2019-12-12 17:00 | Consultation ---
DATE OF CONSULTATION: 12/12/2019 CARDIOLOGY CONSULTATION CONSULTING PHYSICIAN: Cameron Davies MD. REFERRING PHYSICIAN: Dani Perera MD. REASON FOR CONSULTATION: Management of hypertension and respiratory failure. HISTORY OF PRESENT ILLNESS: Patient is an 79-year-old lady with history of hypertension, COPD, coronary artery disease, CHF, schizoaffective disorder, and dementia whose previous admission was in June of 2019. Patient was brought into the emergency room for increasing shortness of breath. Patient subsequently was found to be in respiratory failure, was transferred to intensive care unit, and was intubated. Cardiology consultation was obtained for further evaluation. Her previous echocardiogram showed ejection fraction of 50%. Patient failed BiPAP and is intubated now. REVIEW OF SYSTEMS: Cannot be obtained. PAST MEDICAL HISTORY: As mentioned above. FAMILY HISTORY: Noncontributory. SOCIAL HISTORY: She is a custodial resident. Does not smoke or drink alcohol. PHYSICAL EXAMINATION: VITAL SIGNS: Show blood pressure of 106/36, pulse 65, respirations 16. HEAD AND NECK: Shows she is orally intubated with no JVD. LUNGS: Coarse rhonchi. CARDIOVASCULAR: Shows regular S1 and S2 and tachycardic. ABDOMEN: Soft. EXTREMITIES: No pitting edema. LABORATORY AND DIAGNOSTIC DATA: EKG shows sinus tachycardia with nonspecific ST-T wave abnormalities. LABORATORY DATA: Labs show white count 6.5, hemoglobin of 12, hematocrit of 32, and platelet count of 238,000. Sodium 132, potassium 4.2, BUN of 32, creatinine 1.2. LDH is 685. Troponin is negative. BNP is 19,000. TSH is 21. ASSESSMENT AND PLAN: 1. Respiratory failure with BNP of more than 19,000. Patient's previous echo showed normal ejection fraction. We will repeat the echocardiogram for further evaluation. In the meantime, put the patient on Lasix. 2. 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 TSH is still elevated. 3. Respiratory failure. Patient is intubated, now on steroids and antibiotic in the intensive care unit. 4. History of Parkinson disease. 5. Hyperlipidemia. Thank you very much for allowing me to participate in the care of this patient. Please do not hesitate to contact me for any questions regarding my evaluation. Cameron Davies M.D. DR: ENRIQUE JOB#: [id number] CC:
--- NOTE | 2019-12-12 17:37 | NUR ---
NURSE NOTES:WOUND CARE NOTES:Presented on admission with Non-Blanching erythema without induration Sacrum ,R and L gluteal cheeks.Bruise Upper R arm that is Black with red tinged borders. No other skin concerns noted. Tx.Plan: Apply Moisture Barrier Paste to Buttocks with each incontinence care. Cover Sacrum with Optifoam drsg. Change every 3 days and prn. Apply Cavilon Skin Barrier to Heels. Cover each heel with Optifoam drsg. Changee very 7 days and prn. Reposition at least every 2hours or as tolerated. Off-load heels with Pillow.
[2019-12-12] MEDS: Amantadine 100mg cap ORAL SCH (17:44)
[2019-12-12] MEDS ORDERED: ACETAMINOPHEN500 M3 ORAL (18:25)
[2019-12-12] MEDS ORDERED: FUROSEMIDE40 MG ORAL (18:25)
[2019-12-12] MEDS ORDERED: VITAMIN D325 MCG PO (18:25)
[2019-12-12] MEDS ORDERED: FAMOTIDINE40 MG/5 ML PO (18:25)
[2019-12-12] MEDS ORDERED: FLEET ENEMA133 ML RECTAL (18:25)
--- NOTE | 2019-12-12 19:08 | NUR ---
HAND-OFF: Report given to Kandi Choudhury RN.
--- NOTE | 2019-12-12 19:09 | NUR ---
NURSE NOTES: Received patient from Lin Wesley RN. Will continue plan of care.
--- NOTE | 2019-12-12 19:13 | NUR ---
RESPIRATORY NOTE: Received pt on AC 15, 450VT, 40%, PEEP +5. Pt intubated w/ ETT 7.5 @ 24cm lipline, secured by anchorfast. Pt asleep, responds to stimuli. B/S brendan. diminished, sxn scant amounts of thin, clear-white secretions. Vent plugged into red outlet, ambubag at bedsside. Pt in no apparent distress at this time. Will continue to monitor pt.
--- NOTE | 2019-12-12 20:00 | NUR ---
NURSE NOTES: Patient is intubated; ETT 7.5 @ 24cm to the left side of the lipline to vent settings AC:15, TV:450, FiO2:40%, PEEP:5, O2 saturation:100%. OGT in place but patient remains NPO currently. Ace intact and draining. Left A/C 20g IV running NS @ 50ml/hr. Patient had an episode of bradycardia and propofol is on hold. Patient is starting to wake up and shows that she is understanding of not pulling on lines and tubes for it to be life-threatening to her. MED PEDS restraints on, ROM and skin assessed. Safety measures on; bed low, locked and alarm is on. BP:107/30 HR:67 TEMP:98.1F axillary. Will continue plan of care and monitor vitals.
--- NOTE | 2019-12-12 21:30 | Consultation ---
DATE OF CONSULTATION: 12/12/2019 INFECTIOUS DISEASES CONSULTATION CONSULTING PHYSICIAN: Lei Chan MD PRIMARY ATTENDING PHYSICIAN: Dani Perera MD REASON FOR CONSULTATION: COPD exacerbation, pneumonia. HISTORY OF PRESENT ILLNESS: An 79-year-old white female admitted yesterday from a detention because of shortness of breath. The patient had respiratory distress, was put on BiPAP, but respiratory function became worse and she became intubated early this morning, transferred to ICU. She has previous history of respiratory failure and intubation and was recently in [facility] in [place]. PAST MEDICAL HISTORY: COPD, dementia, Parkinson, anemia, hypertension, mitral valve regurgitation, obesity, hypothyroidism, obstructive sleep apnea. ALLERGIES: [place]. MEDICATIONS: Aspirin, Levaquin, atorvastatin, Depakote, Protonix, amantadine, Zyprexa, Colace, calcium carbonate, clonidine, lorazepam, Tylenol, nitroglycerin, got a dose of vancomycin, azithromycin. SOCIAL HISTORY: snf resident, has a guardian. No other history obtainable by the patient. PHYSICAL EXAMINATION: VITAL SIGNS: Temperature 98.9, pulse 71, blood pressure 106/36. GENERAL APPEARANCE: Well developed. HEAD AND NECK: Orally intubated. HEART: Normal rate. LUNGS: On ventilator. ABDOMEN: Soft. EXTREMITIES: No edema. LABORATORY AND DIAGNOSTIC DATA: Sodium 133, potassium 4.2, chloride 95, bicarbonate 32, BUN 32, creatinine 1.2. Hemoglobin A1c 6.4. WBC 6.5, hemoglobin 11.9, hematocrit 37.3, platelet 238. Chest x-ray showed bilateral infiltrates, cardiomegaly. Venous duplex is negative for DVT. IMPRESSION: COPD exacerbation, may also have pneumonia, acute respiratory failure with hypercapnia, dementia, Parkinson, mitral valve regurgitation, hypertension, hypothyroidism. RECOMMENDATION: We will obtain sputum culture. We will start empirically on IV cefepime. We will follow up the cultures. We will follow up for COVID-19 tests. At the end of my exam, I thank Dr. Perera for involving me in the care of this patient. Lei Chan M.D. DR: Alexia JOB#: [id number] CC: [facility]
--- NOTE | 2019-12-12 22:00 | NUR ---
NURSE NOTES: Propofol remains on hold, patient is asleep and looks to be calm but is monitored closely for safety purposes. GLASS SCIENCE ENGINEER restraints on. Awakens to voice and touch. BP:108/39 HR:68 O2 saturation:100%. Attempt to insert another IV, patient is very edematous- will try again.
--- NOTE | 2019-12-12 23:00 | History and Physical Report ---
DATE OF ADMISSION: 12/11/2019 HISTORY OF PRESENT ILLNESS: Patient has history of CHF, COPD, schizophrenia, and history of noncompliance and removing oxygen at the facility came in because of dyspnea. Patient was more lethargic than baseline. Patient also has hypoxia. Patient was unable to give history because of lethargy. Patient is initially admitted to [facility] for COPD, CHF exacerbation, and shortness of breath. Again, cannot get any other history from patient. Patient is a poor historian and has lethargy. PAST MEDICAL HISTORY: Dementia, schizophrenia, history of noncompliance, history of Parkinson disease, history of diabetes, history of hypertension, history of anemia, mitral regurgitation, hyperlipidemia, obesity, and history of hypothyroidism, history of bradycardia. PAST SURGICAL HISTORY: Denies. ALLERGIES: [place]. FAMILY HISTORY: Unable to obtain. SOCIAL HISTORY: Has history of smoking. Denies history of alcohol or illicit drugs. Comes from [place] [facility]. MEDICATIONS: Amantadine, Lipitor, aspirin, docusate, Lasix, Levoxyl. REVIEW OF SYSTEMS: Again unable to obtain. Patient is lethargic. PHYSICAL EXAMINATION: VITAL SIGNS: Temperature is not recorded, pulse is 60, blood pressure was 105/64. HEENT: Pupils are reactive. CHEST: Bibasilar rhonchi. CARDIOVASCULAR: Bradycardic. GASTROINTESTINAL: Positive bowel sounds. No organomegaly. ABDOMEN: Soft. EXTREMITIES: There is 2+ edema. NEUROLOGIC: Patient is lethargic, unable to get neurological exam due to lethargy. Does not follow neurological exam, but does respond to noxious stimuli. Has generalized weakness. LABORATORY DATA: WBC of 4.9, hemoglobin 12.3, platelets of 237. Sodium 133, potassium 4.2, chloride of 95, BUN of 32, creatinine 1.2. AST of 91, ALT of 184. Troponin 0.05. Lactate dehydrogenase 685. TSH of 21.99. Chest x-ray shows bilateral infiltrates. ASSESSMENT AND PLAN: Respiratory failure, respiratory acidosis, lethargy. I have informed the utilities estimator and drafter that patient might need to be intubated. The patient also was hypoxic initially and very borderline saturations and again patient is most likely going to need to be intubated and informed Dr. Myers of that. Dr. Myers was also consulted initially when the patient came to the ER. Again, respiratory failure, CHF, COPD, obesity, schizophrenia, history of noncompliance with oxygen and [place] the [place] [facility], hypoxia, agitated, psychosis, and leg edema. I have asked Dr. Davies, Dr. Ochoa, Dr. Sincere Myers, Dr. Lei Chan, Dr. Hernandez to see the patient for the schizophrenia, fluid management as well as management of COPD, rule out pneumonia as well as to rule out DVT. Antibiotics per Dr. Lei Chan. Patient is very ill patient. Initially admitted to [facility] and I ordered to transfer the patient to ICU. I told the nurse to send the patient to ICU because patient was lethargic and has respiratory acidosis. Dani Perera M.D. DR: MAYCO JOB#: [id number] CC:
[2019-12-13] VITALS (43 sets, daily range): BP systolic 105–129; BP diastolic 32–73
--- NOTE | 2019-12-13 | NUR ---
NURSE NOTES: Patient had episodes of bradycardia, HR seen to be at 58/59 on the monitor. Suctioning provided. Turned and repositioned. Will continue to monitor.
--- NOTE | 2019-12-13 02:00 | NUR ---
NURSE NOTES: Bed bath given, linens changed, oral care and suctioning provided. Turned and repositioned.
--- NOTE | 2019-12-13 04:00 | NUR ---
NURSE NOTES: Patient is comfortable. Awakens to voice and touch. SCDs placed on. EKG tracing done and placed into chart. Patient repositioned. Suctioning provided.
[2019-12-13 04:44] LABS: BASOPHILS % (AUTO) 0.3 % (0.0-2.0); EOSINOPHILS % (AUTO) 0.3 % (0.0-3.0); HEMATOCRIT 33.2 % (37.0-47.0); HEMOGLOBIN 10.8 G/DL (12.0-16.0); LYMPHOCYTES % (AUTO) 16.2 % (20.0-45.0); MEAN CORPUSCULAR VOLUME 100 FL (80-99); MONOCYTES % (AUTO) 9.3 % (1.0-10.0); PLATELET COUNT 189 K/UL (150-450); RED BLOOD COUNT 3.32 M/UL (4.20-5.40); RED CELL DISTRIBUTION WIDTH 12.8 % (11.6-14.8); WHITE BLOOD COUNT 6.2 K/UL (4.8-10.8)
[2019-12-13 05:25] LABS: ALANINE AMINOTRANSFERASE 138 U/L (12-78); ALBUMIN 3.5 G/DL (3.4-5.0); ALBUMIN/GLOBULIN RATIO 1.4 (1.0-2.7); ALKALINE PHOSPHATASE 54 U/L (46-116); ANION GAP 8 mmol/L (5-15); ASPARTATE AMINO TRANSFERASE 61 U/L (15-37); BILIRUBIN,TOTAL 0.8 MG/DL (0.2-1.0); BLOOD UREA NITROGEN 30 mg/dL (7-18); CALCIUM 7.9 MG/DL (8.5-10.1); CARBON DIOXIDE 33 MMOL/L (21-32); CHLORIDE 96 MMOL/L (98-107); CREATININE 1.5 MG/DL (0.55-1.30); SODIUM 137 MMOL/L (136-145)
[2019-12-13 05:32] LABS: PHOSPHORUS 2.2 MG/DL (2.5-4.9)
--- NOTE | 2019-12-13 06:00 | NUR ---
NURSE NOTES: This morning troponin increased from yesterday. From 0.050 to 0.072- informed Dr. Davies. Also informed him that EKG tracing shows SR w/ 1st degree AVB.
[2019-12-13] MEDS: Docusate 100mg cap ORAL SCH ×3 (06:23→16:31)
--- NOTE | 2019-12-13 07:09 | NUR ---
HAND-OFF: Report given to Lin Wesley RN.
--- NOTE | 2019-12-13 07:10 | NUR ---
NURSE NOTES: Report received from DARREL Chau. Belonging list checked. Pt is sleeping in bed. Pt can be impulsive at times. Continued bilateral soft wrist restraints. SR with 1 AVB on abstract manager. Orally intubated. ETT 7.5/24cm at lip line. AC 20, TV 500, FiO2 40%, P 5. O2 sat 100%. OGT in place and kept NPO. Ace in place draining to gravity. Left AC G20 patent and asymptomatic. NS is running at 50cc/hr. Bed in lowest position. Side rails up x3. Will resume plan of care.
--- NOTE | 2019-12-13 08:30 | Progress Note ---
DATE: 12/12/2019 SUBJECTIVE: The patient is in bed, no acute distress noted. Now, she is intubated. She has waxing and waning consciousness, is able to understand the situation she is in. She has a long history of psych history and is well known to me from [place]. MENTAL STATUS EXAMINATION: The patient has waxing and waning consciousness. Mood is anxious. Affect is flat. Thought process, there is a paucity of thought content. Thought content, no suicidal or homicidal ideation. Cognition is impaired. Insight and judgment impaired. ASSESSMENT: Schizoaffective disorder. PLAN: 1. lithium tomorrow 2. The patient is manageable. Kiana Hernandez M.D. DR: BETY JOB#: [id number] CC: [facility]
[2019-12-13] MEDS: Aspirin EC 325mg tab ORAL SCH (08:55)
[2019-12-13] MEDS: Amantadine 100mg cap ORAL SCH ×2 (08:55→17:28)
[2019-12-13] MEDS: Os-Cal (Oyster Shell) 500mg tab ORAL SCH ×3 (08:56→17:28)
--- NOTE | 2019-12-13 09:18 | Hematology/Onc Progress Note ---
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 ( combination of moderate aortic regurgitation and severe mitral regurgitation) --> diuresis as per cards --> lasix last time # Severe ascending aortic dilatation --> per cards, Dr Davies # Hypertension # Parkinson disease # Hyperlipidemia # Hypothyroidism # Dementia # Obesity # Schizophrenia --> as per [facility] --> restraints # Dvt ppx lovenox sq 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 networks 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 care and alexei Rn Subjective Constitutional: Denies: no symptoms, chills, fever, malaise, weakness, other HEENT: Denies: no symptoms, eye pain, blurred vision, tearing, double vision, ear pain, ear discharge, nose pain, nose congestion, throat pain, throat swelling, mouth pain, mouth swelling, other Cardiovascular: Denies: no symptoms, chest pain, edema, irregular heart rate, lightheadedness, palpitations, syncope, other Genitourinary: Denies: no symptoms, burning, discharge, frequency, flank pain, hematuria, incontinence, pain, urgency, other Neurologic/Psychiatric: Denies: no symptoms, anxiety, depressed, emotional problems, headache, numbness, paresthesia, pre-existing deficit, seizure, tingling, tremors, weakness, other Endocrine: Denies: no symptoms, excessive sweating, flushing, intolerance to cold, intolerance to heat, increased hunger, increased thirst, increased urine, unexplained weight gain, unexplained weight loss, other Hematologic/Lymphatic: Denies: no symptoms, anemia, easy bleeding, easy bruising, adenopathy, other Allergies: Coded Allergies: LITHIUM (Verified Allergy, Unknown, 02/07/19) Subjective 7/2 labs are reviewed, intubated, with og, somewhat responsive, dw rn Objective Objective Current Medications Medications (Trade) Dose Ordered Sig/Angie Route PRN Reason Start Time Stop Time Status Last Admin Dose Admin Acetaminophen (Tylenol) 650 mg Q6H PRN ORAL Mild Pain (Pain Scale 1-3) 12/12/19 12:30 01/11/20 12:29 Acetaminophen (Tylenol) 1,000 mg Q6H PRN ORAL MODERATE PAIN 12/12/19 12:30 01/11/20 12:29 Amantadine HCl (Symmetrel) 100 mg TWICE A DAY ORAL 12/12/19 18:00 01/11/20 08:59 12/13/19 08:55 Aspirin (Ecotrin) 325 mg DAILY ORAL 12/13/19 09:00 01/26/20 08:59 12/13/19 08:55 Atorvastatin Calcium (Lipitor) 10 mg BEDTIME ORAL 12/12/19 21:00 03/11/20 20:59 12/12/19 20:16 Calcium Carbonate (Os-Octavio) 1,250 mg THREE TIMES A DAY ORAL 12/12/19 13:00 03/11/20 09:59 12/13/19 08:56 Cefepime HCl 1 gm/ Dextrose 55 ml @ 110 mls/hr Q24H IVPB 12/12/19 16:00 12/19/19 15:59 12/12/19 16:52 Clonidine HCl (Catapres Tab) 0.1 mg Q6H PRN ORAL For high BP over 160 systolic 12/12/19 12:31 03/11/20 12:30 Dextrose (Dextrose 50%) 25 ml Q30M PRN IV Hypoglycemia 12/13/19 07:15 03/12/20 07:14 Dextrose (Dextrose 50%) 50 ml Q30M PRN IV Hypoglycemia 12/13/19 07:15 03/12/20 07:14 Divalproex Sodium (Depakote) 250 mg EVERY 12 HOURS ORAL 12/12/19 21:00 01/11/20 08:59 12/13/19 08:56 Docusate Sodium (Colace) 100 mg TIAC ORAL 12/12/19 16:30 01/11/20 06:29 12/13/19 06:23 Furosemide (Lasix) 40 mg BID IV 12/12/19 18:00 01/11/20 08:59 12/13/19 08:57 Insulin Aspart (NovoLOG) EVERY 6 HOURS SUBQ 12/13/19 12:00 03/12/20 11:59 Levothyroxine Sodium (Synthroid) 75 mcg DAILY IV 12/13/19 09:00 01/11/20 09:29 12/13/19 08:56 Lorazepam (Ativan) 1 mg Q6H PRN ORAL For Anxiety 12/12/19 12:31 12/19/19 12:30 Nitroglycerin (Ntg) 0.4 mg Q5MIN X 3 DOSES PRN SL CHEST PAIN 12/12/19 12:00 01/10/20 21:44 Olanzapine (ZyPREXA) 5 mg BID ORAL 12/12/19 18:00 01/26/20 08:59 Pantoprazole (Protonix) 40 mg EVERY 12 HOURS ORAL 12/12/19 21:00 01/11/20 08:59 12/13/19 08:55 Propofol 100 ml @ 0 mls/hr Q24H IV 12/12/19 12:50 12/14/19 12:49 12/12/19 12:50 Sodium Chloride 1,000 ml @ 50 mls/hr Q20H IV 12/12/19 12:30 01/11/20 12:29 12/13/19 06:20 Last 24 Hour Vital Signs Date Time Temp Pulse Resp B/P (MAP) Pulse Ox O2 Delivery O2 Flow Rate FiO2 12/13/19 07:45 63 15 40 12/13/19 07:00 64 15 116/36 (62) 100 12/13/19 06:45 65 15 121/37 (65) 100 12/13/19 06:30 66 15 12/13/19 06:30 64 15 116/37 (63) 100 12/13/19 06:15 64 15 118/37 (64) 100 12/13/19 06:00 63 15 113/39 (63) 100 12/13/19 05:45 62 15 105/37 (59) 100 12/13/19 05:30 63 15 112/37 (62) 100 12/13/19 05:15 65 15 118/34 (62) 100 12/13/19 05:00 65 15 118/37 (64) 100 12/13/19 04:45 64 15 117/45 (69) 100 12/13/19 04:30 64 15 119/43 (68) 100 12/13/19 04:15 61 15 108/45 (66) 100 12/13/19 04:00 98.0 61 15 124/39 (67) 100 12/13/19 04:00 40 12/13/19 04:00 Endotracheal Tube 12/13/19 03:45 62 15 126/44 (71) 100 12/13/19 03:30 63 15 124/42 (69) 100 12/13/19 03:24 60 12/13/19 03:09 62 15 40 12/13/19 03:00 60 15 116/42 (66) 100 12/13/19 02:45 62 15 105/36 (59) 100 12/13/19 02:30 65 15 108/37 (60) 100 12/13/19 02:15 62 15 105/37 (59) 100 12/13/19 02:00 62 15 114/37 (62) 100 12/13/19 01:45 63 15 115/38 (63) 100 12/13/19 01:30 62 15 109/38 (61) 100 12/13/19 01:00 64 15 114/47 (69) 100 12/13/19 00:00 Endotracheal Tube 12/13/19 00:00 98.4 66 9 107/39 (61) 100 12/12/19 23:45 65 12 109/36 (60) 100 12/12/19 23:30 65 10 102/34 (56) 100 12/12/19 23:15 65 15 107/32 (57) 100 12/12/19 23:11 64 12/12/19 23:10 64 15 40 12/12/19 23:00 68 17 116/37 (63) 100 12/12/19 22:45 68 15 113/41 (65) 100 12/12/19 22:30 66 16 108/39 (62) 100 12/12/19 22:15 66 15 112/41 (64) 100 12/12/19 22:00 67 16 117/44 (68) 100 12/12/19 21:45 67 16 111/44 (66) 100 12/12/19 21:30 67 16 114/33 (60) 100 12/12/19 21:00 68 16 114/33 (60) 100 12/12/19 20:15 66 16 109/30 (56) 100 12/12/19 20:00 Endotracheal Tube 12/12/19 20:00 40 12/12/19 20:00 98.1 69 16 107/30 (55) 100 12/12/19 19:32 66 12/12/19 19:30 66 16 113/33 (59) 100 12/12/19 19:15 65 16 105/44 (64) 100 12/12/19 19:10 66 15 40 12/12/19 19:00 15 96/38 Mechanical Ventilator 40 12/12/19 19:00 60 16 96/38 (57) 100 12/12/19 18:00 16 97/32 Endotracheal Tube 40 12/12/19 17:00 15 111/41 Endotracheal Tube 40 12/12/19 16:30 67 16 103/33 (56) 100 12/12/19 16:15 67 16 100/34 (56) 99 12/12/19 16:00 98.8 68 15 102/30 (54) 100 12/12/19 16:00 15 102/30 Endotracheal Tube 50 12/12/19 16:00 Endotracheal Tube 12/12/19 15:19 68 12/12/19 15:00 67 18 105/35 (58) 100 12/12/19 15:00 18 105/35 Endotracheal Tube 50 12/12/19 14:43 71 15 40 12/12/19 14:05 70 19 104/35 (58) 93 12/12/19 14:00 20 104/35 Endotracheal Tube 50 12/12/19 14:00 69 20 104/35 (58) 100 12/12/19 13:55 69 19 104/35 (58) 98 12/12/19 13:40 68 18 105/38 (60) 93 12/12/19 13:25 67 22 103/37 (59) 98 12/12/19 13:05 67 21 110/30 (56) 99 12/12/19 13:00 67 18 116/35 (62) 99 12/12/19 13:00 18 116/53 Endotracheal Tube 50 12/12/19 12:50 15 106/36 Endotracheal Tube 100 12/12/19 12:47 50 12/12/19 12:44 15 106/36 50 7/1/20 12:28 50 12/12/19 12:01 65 20 100 12/12/19 12:00 98.9 65 20 105/33 (57) 100 12/12/19 12:00 67 12/12/19 11:45 Endotracheal Tube 12/12/19 11:00 66 21 112/36 (61) 94 12/12/19 10:20 Endotracheal Tube 12/12/19 10:00 66 19 107/31 (56) 98 12/12/19 09:00 75 19 99/43 (61) 100 12/12/19 08:51 98.8 77 20 100/40 (60) 100 12/12/19 08:50 100 12/12/19 08:50 74 20 100 12/12/19 08:47 87 12/12/19 08:00 Non-Rebreather 15.0 12/12/19 08:00 Non-Rebreather 15.0 12/12/19 08:00 99.1 70 16 124/54 (77) 100 12/12/19 04:00 97.8 78 16 115/55 (75) 100 12/12/19 04:00 69 12/12/19 04:00 Non-Rebreather 15.0 12/12/19 00:00 69 12/12/19 00:00 Non-Rebreather 15.0 12/12/19 00:00 95.0 65 21 112/57 (75) 100 12/11/19 22:04 Non-Rebreather 15.0 12/11/19 20:36 66 12/11/19 20:00 97.7 72 20 110/45 (66) 100 12/11/19 19:14 98.9 76 21 116/74 100 Non-Rebreather 15.0 12/11/19 17:50 99.0 74 21 127/60 99 Non-Rebreather 15.0 12/11/19 16:03 126/71 12/11/19 15:50 99.0 78 24 135/79 98 Non-Rebreather 15.0 12/11/19 13:50 99.0 93 23 140/66 98 Non-Rebreather 15.0 12/11/19 13:50 93 23 Non-Rebreather 15.0 12/11/19 13:24 99.0 93 23 140/66 (90) 98 Non-Rebreather 15.0 Intake and Output 12/12/19 12/13/19 19:00 07:00 Intake Total 402.361 ml 613.33 ml Output Total 1155 ml 1425 ml Balance -752.639 ml -811.67 ml Intake IV Total 402.361 ml 583.33 ml Other 30 ml Output Urine Total 1155 ml 1425 ml Labs Test 12/11/19 13:43 12/11/19 14:10 12/12/19 03:30 12/12/19 07:43 Arterial Blood pH 7.340 (7.350-7.450) 7.163 (7.350-7.450) Arterial Blood Partial Pressure CO2 54.3 mmHg (35.0-45.0) 93.3 mmHg (35.0-45.0) Arterial Blood Partial Pressure O2 130.3 mmHg (75.0-100.0) 181.0 mmHg (75.0-100.0) Arterial Blood HCO3 28.6 mmol/L (22.0-26.0) 32.7 mmol/L (22.0-26.0) Arterial Blood Oxygen Saturation 98.1 % (95-100) 98.7 % (95-100) Arterial Blood Base Excess 98.1 (-2-2) 1.6 (-2-2) Raphael Test Positive Positive White Blood Count 4.9 K/UL (4.8-10.8) 6.5 K/UL (4.8-10.8) Red Blood Count 3.73 M/UL (4.20-5.40) 3.61 M/UL (4.20-5.40) Hemoglobin 12.3 G/DL (12.0-16.0) 11.9 G/DL (12.0-16.0) Hematocrit 37.6 % (37.0-47.0) 37.3 % (37.0-47.0) Mean Corpuscular Volume 101 FL (80-99) 103 FL (80-99) Mean Corpuscular Hemoglobin 33.1 PG (27.0-31.0) 32.9 PG (27.0-31.0) Mean Corpuscular Hemoglobin Concent 32.9 G/DL (32.0-36.0) 31.9 G/DL (32.0-36.0) Red Cell Distribution Width 13.1 % (11.6-14.8) 13.7 % (11.6-14.8) Platelet Count 237 K/UL (150-450) 238 K/UL (150-450) Mean Platelet Volume 7.3 FL (6.5-10.1) 7.1 FL (6.5-10.1) Neutrophils (%) (Auto) 68.1 % (45.0-75.0) 83.4 % (45.0-75.0) Lymphocytes (%) (Auto) 22.1 % (20.0-45.0) 11.3 % (20.0-45.0) Monocytes (%) (Auto) 8.6 % (1.0-10.0) 4.8 % (1.0-10.0) Eosinophils (%) (Auto) 0.2 % (0.0-3.0) 0.0 % (0.0-3.0) Basophils (%) (Auto) 1.0 % (0.0-2.0) 0.5 % (0.0-2.0) Prothrombin Time 12.2 SEC (9.30-11.50) Prothromb Time International Ratio 1.1 (0.9-1.1) Activated Partial Thromboplast Time 31 SEC (23-33) D-Dimer 2.04 mg/L FEU (0.00-0.49) Urine Color Pale yellow Urine Appearance Clear Urine pH 5 (4.5-8.0) Urine Specific [place] 1.015 (1.005-1.035) Urine Protein 3+ (NEGATIVE) Urine Glucose (UA) Negative (NEGATIVE) Urine Ketones Negative (NEGATIVE) Urine Blood 1+ (NEGATIVE) Urine Nitrite Negative (NEGATIVE) Urine Bilirubin Negative (NEGATIVE) Urine Urobilinogen Normal MG/DL (0.0-1.0) Urine Leukocyte Esterase 1+ (NEGATIVE) Urine RBC 0-2 /HPF (0 - 2) Urine WBC 0-2 /HPF (0 - 2) Urine Squamous Epithelial Cells Few /LPF (NONE/OCC) Urine Bacteria Few /HPF (NONE) Sodium Level 130 MMOL/L (136-145) 133 MMOL/L (136-145) Potassium Level 4.4 MMOL/L (3.5-5.1) 4.2 MMOL/L (3.5-5.1) Chloride Level 92 MMOL/L (98-107) 95 MMOL/L (98-107) Carbon Dioxide Level 30 MMOL/L (21-32) 32 MMOL/L (21-32) Anion Gap 8 mmol/L (5-15) 6 mmol/L (5-15) Blood Urea Nitrogen 25 mg/dL (7-18) 32 mg/dL (7-18) Creatinine 1.0 MG/DL (0.55-1.30) 1.2 MG/DL (0.55-1.30) Estimat Glomerular Filtration Rate 53.3 mL/min (>60) 43.3 mL/min (>60) Glucose Level 102 MG/DL (74-106) 106 MG/DL (74-106) Lactic Acid Level 1.10 mmol/L (0.4-2.0) Calcium Level 8.6 MG/DL (8.5-10.1) 7.9 MG/DL (8.5-10.1) Magnesium Level 2.3 MG/DL (1.8-2.4) 2.2 MG/DL (1.8-2.4) Ferritin 57 NG/ML (8-388) Total Bilirubin 1.0 MG/DL (0.2-1.0) 0.6 MG/DL (0.2-1.0) Aspartate Amino Transf (AST/SGOT) 139 U/L (15-37) 91 U/L (15-37) Alanine Aminotransferase (ALT/SGPT) 215 U/L (12-78) 184 U/L (12-78) Alkaline Phosphatase 68 U/L (46-116) 64 U/L (46-116) Lactate Dehydrogenase 685 U/L (81-234) Troponin I 0.056 ng/mL (0.000-0.056) 0.050 ng/mL (0.000-0.056) C-Reactive Protein, Quantitative < 0.4 mg/dL (0.00-0.90) 0.5 mg/dL (0.00-0.90) Pro-B-Type Natriuretic Peptide 70766 pg/mL (0-125) 97585 pg/mL (0-125) Total Protein 7.7 G/DL (6.4-8.2) 7.1 G/DL (6.4-8.2) Albumin 4.6 G/DL (3.4-5.0) 4.1 G/DL (3.4-5.0) Globulin 3.1 g/dL 3.0 g/dL Albumin/Globulin Ratio 1.5 (1.0-2.7) 1.4 (1.0-2.7) Valproic Acid (Depakene) Level 3 MCG/ML (50-100) Hemoglobin A1c 6.4 % (4.3-6.0) Uric Acid 7.6 MG/DL (2.6-7.2) Phosphorus Level 5.6 MG/DL (2.5-4.9) Gamma Glutamyl Transpeptidase 31 U/L (5-85) Triglycerides Level 111 MG/DL (30-150) Cholesterol Level 238 MG/DL (< 200) LDL Cholesterol 151 mg/dL (<100) HDL Cholesterol 59 MG/DL (40-60) Cholesterol/HDL Ratio 4.0 (3.3-4.4) Vitamin B12 Level 755 PG/ML (193-986) Folate 18.5 NG/ML (8.6-58.9) Thyroid Stimulating Hormone (TSH) 21.992 uiU/mL (0.358-3.740) Test 12/12/19 08:01 12/12/19 12:05 12/13/19 03:40 12/13/19 08:26 Arterial Blood pH 7.500 (7.350-7.450) 7.467 (7.350-7.450) Arterial Blood Partial Pressure CO2 39.3 mmHg (35.0-45.0) 41.5 mmHg (35.0-45.0) Arterial Blood Partial Pressure O2 466.3 mmHg (75.0-100.0) 85.2 mmHg (75.0-100.0) Arterial Blood HCO3 30.0 mmol/L (22.0-26.0) 29.5 mmol/L (22.0-26.0) Arterial Blood Oxygen Saturation 99.5 % (95-100) 96.1 % (95-100) Arterial Blood Base Excess 6.4 (-2-2) 5.3 (-2-2) Raphael Test Positive Positive White Blood Count 6.2 K/UL (4.8-10.8) Red Blood Count 3.32 M/UL (4.20-5.40) Hemoglobin 10.8 G/DL (12.0-16.0) Hematocrit 33.2 % (37.0-47.0) Mean Corpuscular Volume 100 FL (80-99) Mean Corpuscular Hemoglobin 32.6 PG (27.0-31.0) Mean Corpuscular Hemoglobin Concent 32.5 G/DL (32.0-36.0) Red Cell Distribution Width 12.8 % (11.6-14.8) Platelet Count 189 K/UL (150-450) Mean Platelet Volume 6.9 FL (6.5-10.1) Neutrophils (%) (Auto) 74.0 % (45.0-75.0) Lymphocytes (%) (Auto) 16.2 % (20.0-45.0) Monocytes (%) (Auto) 9.3 % (1.0-10.0) Eosinophils (%) (Auto) 0.3 % (0.0-3.0) Basophils (%) (Auto) 0.3 % (0.0-2.0) Sodium Level 137 MMOL/L (136-145) Potassium Level 3.0 MMOL/L (3.5-5.1) Chloride Level 96 MMOL/L (98-107) Carbon Dioxide Level 33 MMOL/L (21-32) Anion Gap 8 mmol/L (5-15) Blood Urea Nitrogen 30 mg/dL (7-18) Creatinine 1.5 MG/DL (0.55-1.30) Estimat Glomerular Filtration Rate 33.4 mL/min (>60) Glucose Level 80 MG/DL (74-106) Uric Acid 8.8 MG/DL (2.6-7.2) Calcium Level 7.9 MG/DL (8.5-10.1) Phosphorus Level 2.2 MG/DL (2.5-4.9) Magnesium Level 1.9 MG/DL (1.8-2.4) Total Bilirubin 0.8 MG/DL (0.2-1.0) Aspartate Amino Transf (AST/SGOT) 61 U/L (15-37) Alanine Aminotransferase (ALT/SGPT) 138 U/L (12-78) Alkaline Phosphatase 54 U/L (46-116) Troponin I 0.072 ng/mL (0.000-0.056) C-Reactive Protein, Quantitative 1.0 mg/dL (0.00-0.90) Pro-B-Type Natriuretic Peptide 6795 pg/mL (0-125) Total Protein 6.0 G/DL (6.4-8.2) Albumin 3.5 G/DL (3.4-5.0) Globulin 2.5 g/dL Albumin/Globulin Ratio 1.4 (1.0-2.7) Micro Microbiology Date/Time Source Procedure Growth Status 12/12/19 16:40 Sputum Gram Stain - Final Resulted 12/12/19 16:40 Sputum Sputum Culture - Preliminary NORMAL UPPER RESPIRATORY CHAIM AT 24 ... Resulted Height (Feet): 5 Height (Inches): 7.00 Weight (Pounds): 210 Objective Vitals: reviewed General: NAD HEENT: nc, at ++ogt Neck: supple ++intubated Chest: decreased breath sounds bilaterally Cardiovascular: RRR, no s3, s4 Abdomen: soft, nontender, nd Extremities: 1-2 + edema Neuro: nonverbal Frank Escobar MD Dec 13, 2019 09:18
--- NOTE | 2019-12-13 09:30 | NUR ---
NURSE NOTES: Inserted a peripheral IV to right wrist. Patient is confused but cooperated to care. Repositioned patient and continued restraints.
--- NOTE | 2019-12-13 09:53 | Diagnostic Imaging Report ---
Indication: Dyspnea Technique: One view of the chest Comparison: 12/12/2019 Findings: Interim placement of an orogastric tube, tip of which projects beyond the edge of the imaged, presumably well positioned. Stable satisfactory position of endotracheal tube. There is slightly increased bilateral interstitial and airspace infiltrates versus edema. There is a small left pleural effusion which appears slightly increased. Impression: Increasing interstitial congestion and small left pleural effusion Interim orogastric intubation
--- NOTE | 2019-12-13 10:19 | NUR ---
NURSE NOTES: 2Decho is being done at bedside.
--- NOTE | 2019-12-13 11:30 | NUR ---
RADIOLOGY DEPT., CHEST X-RAY DONE.-P.DYE
[2019-12-13] MEDS: NovoLOG Insulin Flexpen SUBQ SCH ×3 (11:49→23:17)
[2019-12-13] MEDS: propofoL 1,000mg/100ml 100 ML IV SCH (12:19)
--- NOTE | 2019-12-13 12:37 | Pulmonology Progress Note ---
Subjective ROS Limited/Unobtainable: No Interval Events: Remains intubated Constitutional: Reports: no symptoms HEENT: Repors: no symptoms Respiratory: Reports: no symptoms Cardiovascular: Reports: no symptoms Gastrointestinal/Abdominal: Reports: no symptoms Genitourinary: Reports: no symptoms Allergies: Coded Allergies: LITHIUM (Verified Allergy, Unknown, 02/07/19) Objective Last 24 Hour Vital Signs Date Time Temp Pulse Resp B/P (MAP) Pulse Ox O2 Delivery O2 Flow Rate FiO2 12/13/19 12:00 Endotracheal Tube 12/13/19 12:00 66 12/13/19 12:00 65 15 112/37 (62) 100 12/13/19 11:54 63 15 40 12/13/19 11:00 64 15 111/32 (58) 100 12/13/19 10:00 66 15 108/33 (58) 100 12/13/19 10:00 64 17 114/37 (62) 100 12/13/19 09:00 64 17 114/37 (62) 100 12/13/19 08:01 71 12/13/19 08:00 Endotracheal Tube 12/13/19 08:00 40 12/13/19 08:00 99.1 67 15 114/38 (63) 100 12/13/19 07:45 63 15 40 12/13/19 07:00 64 15 116/36 (62) 100 12/13/19 06:45 65 15 121/37 (65) 100 12/13/19 06:30 66 15 12/13/19 06:30 64 15 116/37 (63) 100 12/13/19 06:15 64 15 118/37 (64) 100 12/13/19 06:00 63 15 113/39 (63) 100 12/13/19 05:45 62 15 105/37 (59) 100 12/13/19 05:30 63 15 112/37 (62) 100 12/13/19 05:15 65 15 118/34 (62) 100 12/13/19 05:00 65 15 118/37 (64) 100 12/13/19 04:45 64 15 117/45 (69) 100 12/13/19 04:30 64 15 119/43 (68) 100 12/13/19 04:15 61 15 108/45 (66) 100 12/13/19 04:00 98.0 61 15 124/39 (67) 100 12/13/19 04:00 40 12/13/19 04:00 Endotracheal Tube 12/13/19 03:45 62 15 126/44 (71) 100 12/13/19 03:30 63 15 124/42 (69) 100 12/13/19 03:24 60 12/13/19 03:09 62 15 40 12/13/19 03:00 60 15 116/42 (66) 100 12/13/19 02:45 62 15 105/36 (59) 100 12/13/19 02:30 65 15 108/37 (60) 100 12/13/19 02:15 62 15 105/37 (59) 100 12/13/19 02:00 62 15 114/37 (62) 100 12/13/19 01:45 63 15 115/38 (63) 100 12/13/19 01:30 62 15 109/38 (61) 100 12/13/19 01:00 64 15 114/47 (69) 100 12/13/19 00:00 Endotracheal Tube 12/13/19 00:00 98.4 66 9 107/39 (61) 100 12/12/19 23:45 65 12 109/36 (60) 100 12/12/19 23:30 65 10 102/34 (56) 100 12/12/19 23:15 65 15 107/32 (57) 100 12/12/19 23:11 64 12/12/19 23:10 64 15 40 12/12/19 23:00 68 17 116/37 (63) 100 12/12/19 22:45 68 15 113/41 (65) 100 12/12/19 22:30 66 16 108/39 (62) 100 12/12/19 22:15 66 15 112/41 (64) 100 12/12/19 22:00 67 16 117/44 (68) 100 12/12/19 21:45 67 16 111/44 (66) 100 12/12/19 21:30 67 16 114/33 (60) 100 12/12/19 21:00 68 16 114/33 (60) 100 12/12/19 20:15 66 16 109/30 (56) 100 12/12/19 20:00 Endotracheal Tube 12/12/19 20:00 40 12/12/19 20:00 98.1 69 16 107/30 (55) 100 12/12/19 19:32 66 12/12/19 19:30 66 16 113/33 (59) 100 12/12/19 19:15 65 16 105/44 (64) 100 12/12/19 19:10 66 15 40 12/12/19 19:00 15 96/38 Mechanical Ventilator 40 12/12/19 19:00 60 16 96/38 (57) 100 12/12/19 18:00 16 97/32 Endotracheal Tube 40 12/12/19 17:00 15 111/41 Endotracheal Tube 40 12/12/19 16:30 67 16 103/33 (56) 100 12/12/19 16:15 67 16 100/34 (56) 99 12/12/19 16:00 98.8 68 15 102/30 (54) 100 12/12/19 16:00 15 102/30 Endotracheal Tube 50 12/12/19 16:00 Endotracheal Tube 12/12/19 15:19 68 12/12/19 15:00 67 18 105/35 (58) 100 12/12/19 15:00 18 105/35 Endotracheal Tube 50 12/12/19 14:43 71 15 40 12/12/19 14:05 70 19 104/35 (58) 93 12/12/19 14:00 20 104/35 Endotracheal Tube 50 12/12/19 14:00 69 20 104/35 (58) 100 12/12/19 13:55 69 19 104/35 (58) 98 12/12/19 13:40 68 18 105/38 (60) 93 12/12/19 13:25 67 22 103/37 (59) 98 12/12/19 13:05 67 21 110/30 (56) 99 12/12/19 13:00 67 18 116/35 (62) 99 12/12/19 13:00 18 116/53 Endotracheal Tube 50 12/12/19 12:50 15 106/36 Endotracheal Tube 100 12/12/19 12:47 50 12/12/19 12:44 15 106/36 50 Intake and Output 12/12/19 12/13/19 19:00 07:00 Intake Total 402.361 ml 613.33 ml Output Total 1155 ml 1425 ml Balance -752.639 ml -811.67 ml Intake IV Total 402.361 ml 583.33 ml Other 30 ml Output Urine Total 1155 ml 1425 ml General Appearance: no acute distress Respiratory: chest wall non-tender, lungs clear Cardiovascular: normal peripheral pulses, normal rate Abdomen: normal bowel sounds Microbiology Date/Time Source Procedure Growth Status 12/11/19 14:00 Blood Blood Culture - Preliminary NO GROWTH AFTER 24 HOURS Resulted 12/11/19 13:40 Blood Blood Culture - Preliminary NO GROWTH AFTER 24 HOURS Resulted 12/12/19 16:40 Sputum Gram Stain - Final Resulted 12/12/19 16:40 Sputum Sputum Culture - Preliminary NORMAL UPPER RESPIRATORY CHAIM AT 24 ... Resulted 12/11/19 14:15 Nasopharynx Coronavirus COVID-19 PCR ([facility]AYME) - Final Complete 12/11/19 18:00 Rectum Received Laboratory Tests 12/13/19 03:40: White Blood Count 6.2, Red Blood Count 3.32L, Hemoglobin 10.8L, Hematocrit 33.2L , Mean Corpuscular Volume 100H, Mean Corpuscular Hemoglobin 32.6H, Mean Corpuscular Hemoglobin Concent 32.5, Red Cell Distribution Width 12.8, Platelet Count 189, Mean Platelet Volume 6.9, Neutrophils (%) (Auto) 74.0, Lymphocytes (% ) (Auto) 16.2L, Monocytes (%) (Auto) 9.3, Eosinophils (%) (Auto) 0.3, Basophils (%) (Auto) 0.3, Sodium Level 137, Potassium Level 3.0L, Chloride Level 96L, Carbon Dioxide Level 33H, Anion Gap 8, Blood Urea Nitrogen 30H, Creatinine 1.5H , Estimat Glomerular Filtration Rate 33.4, Glucose Level 80, Uric Acid 8.8H, Calcium Level 7.9L, Phosphorus Level 2.2L, Magnesium Level 1.9, Total Bilirubin 0.8, Aspartate Amino Transf (AST/SGOT) 61H, Alanine Aminotransferase (ALT/SGPT) 138H, Alkaline Phosphatase 54, Troponin I 0.072H, C-Reactive Protein, Quantitative 1.0H, Pro-B-Type Natriuretic Peptide 6795H, Total Protein 6.0L, Albumin 3.5, Globulin 2.5, Albumin/Globulin Ratio 1.4 12/13/19 08:26: Arterial Blood pH 7.467H, Arterial Blood Partial Pressure CO2 41.5, Arterial Blood Partial Pressure O2 85.2, Arterial Blood HCO3 29.5H, Arterial Blood Oxygen Saturation 96.1, Arterial Blood Base Excess 5.3H, Raphael Test Positive Current Medications Medications (Trade) Dose Ordered Sig/Angie Route PRN Reason Start Time Stop Time Status Last Admin Dose Admin Acetaminophen (Tylenol) 650 mg Q6H PRN ORAL Mild Pain (Pain Scale 1-3) 12/12/19 12:30 01/11/20 12:29 Acetaminophen (Tylenol) 1,000 mg Q6H PRN ORAL MODERATE PAIN 12/12/19 12:30 01/11/20 12:29 Amantadine HCl (Symmetrel) 100 mg TWICE A DAY ORAL 12/12/19 18:00 01/11/20 08:59 12/13/19 08:55 Aspirin (Ecotrin) 325 mg DAILY ORAL 12/13/19 09:00 01/26/20 08:59 12/13/19 08:55 Atorvastatin Calcium (Lipitor) 10 mg BEDTIME ORAL 12/12/19 21:00 03/11/20 20:59 12/12/19 20:16 Calcium Carbonate (Os-Octavio) 1,250 mg THREE TIMES A DAY ORAL 12/12/19 13:00 03/11/20 09:59 12/13/19 12:19 Cefepime HCl 1 gm/ Dextrose 55 ml @ 110 mls/hr Q24H IVPB 12/12/19 16:00 12/19/19 15:59 12/12/19 16:52 Clonidine HCl (Catapres Tab) 0.1 mg Q6H PRN ORAL For high BP over 160 systolic 12/12/19 12:31 03/11/20 12:30 Dextrose (Dextrose 50%) 25 ml Q30M PRN IV Hypoglycemia 12/13/19 07:15 03/12/20 07:14 Dextrose (Dextrose 50%) 50 ml Q30M PRN IV Hypoglycemia 12/13/19 07:15 03/12/20 07:14 Divalproex Sodium (Depakote) 250 mg EVERY 12 HOURS ORAL 12/12/19 21:00 01/11/20 08:59 12/13/19 08:56 Docusate Sodium (Colace) 100 mg TIAC ORAL 12/12/19 16:30 01/11/20 06:29 12/13/19 11:48 Furosemide (Lasix) 40 mg BID IV 12/12/19 18:00 01/11/20 08:59 12/13/19 08:57 Insulin Aspart (NovoLOG) EVERY 6 HOURS SUBQ 12/13/19 12:00 03/12/20 11:59 Levothyroxine Sodium (Synthroid) 75 mcg DAILY IV 12/13/19 09:00 01/11/20 09:29 12/13/19 08:56 Lorazepam (Ativan) 1 mg Q6H PRN ORAL For Anxiety 12/12/19 12:31 12/19/19 12:30 Nitroglycerin (Ntg) 0.4 mg Q5MIN X 3 DOSES PRN SL CHEST PAIN 12/12/19 12:00 01/10/20 21:44 Olanzapine (ZyPREXA) 5 mg BID ORAL 12/12/19 18:00 01/26/20 08:59 Pantoprazole (Protonix) 40 mg EVERY 12 HOURS ORAL 12/12/19 21:00 01/11/20 08:59 12/13/19 08:55 Potassium Chloride 100 ml @ 100 mls/hr Q1HR IVPB 12/13/19 12:00 12/13/19 15:59 12/13/19 12:20 Propofol 100 ml @ 0 mls/hr Q24H IV 12/12/19 12:50 12/14/19 12:49 12/12/19 12:50 Sodium Chloride 1,000 ml @ 50 mls/hr Q20H IV 12/12/19 12:30 01/11/20 12:29 12/13/19 06:20 Assessment/Plan Assessment/Plan IMPRESSION: 1. Respiratory failure. 2. Rule out healthcare-associated pneumonia versus COVID-19. 3. Psych disorder. 4. Obesity. 5. Hypertension. DISCUSSION: Continue broad spectrum antibiotics. On propofol. I will manage respirator, currently on AC mode 60% FiO2 and PEEP of 5. Has negative COVID-19 swab. I will follow carefully. Emerita Fan Omar Syed MD Dec 13, 2019 12:37
--- NOTE | 2019-12-13 12:45 | NUR ---
NURSE NOTES: Dr Ochoa here to see the patient. Updated him with patient's current condition. Started the first IV Potassium Chloride 10meq as per Dr Ochoa's order.
--- NOTE | 2019-12-13 13:10 | Infectious Diseases Prog Note ---
Assessment/Plan Assessment/Plan IMPRESSION: COPD exacerbation, Pneumonia, COID19 X 1: negative Acute respiratory failure with hypercapnia Dementia, Parkinson, Mitral valve regurgitation, Hypertension, Hypothyroidism. RECOMMENDATION: Continue IV cefepime. We will follow up the cultures. Subjective ROS Limited/Unobtainable: Yes Constitutional: Denies: fever Neurologic: Reports: confusion, other - on restraint Allergies: Coded Allergies: LITHIUM (Verified Allergy, Unknown, 02/07/19) Objective Last 24 Hour Vital Signs Date Time Temp Pulse Resp B/P (MAP) Pulse Ox O2 Delivery O2 Flow Rate FiO2 12/13/19 12:00 Endotracheal Tube 12/13/19 12:00 66 12/13/19 12:00 40 12/13/19 12:00 65 15 112/37 (62) 100 12/13/19 11:54 63 15 40 12/13/19 11:00 64 15 111/32 (58) 100 12/13/19 10:00 66 15 108/33 (58) 100 12/13/19 10:00 64 17 114/37 (62) 100 12/13/19 09:00 64 17 114/37 (62) 100 12/13/19 08:01 71 12/13/19 08:00 Endotracheal Tube 12/13/19 08:00 40 12/13/19 08:00 99.1 67 15 114/38 (63) 100 12/13/19 07:45 63 15 40 12/13/19 07:00 64 15 116/36 (62) 100 12/13/19 06:45 65 15 121/37 (65) 100 12/13/19 06:30 66 15 12/13/19 06:30 64 15 116/37 (63) 100 12/13/19 06:15 64 15 118/37 (64) 100 12/13/19 06:00 63 15 113/39 (63) 100 12/13/19 05:45 62 15 105/37 (59) 100 12/13/19 05:30 63 15 112/37 (62) 100 12/13/19 05:15 65 15 118/34 (62) 100 12/13/19 05:00 65 15 118/37 (64) 100 12/13/19 04:45 64 15 117/45 (69) 100 12/13/19 04:30 64 15 119/43 (68) 100 12/13/19 04:15 61 15 108/45 (66) 100 12/13/19 04:00 98.0 61 15 124/39 (67) 100 12/13/19 04:00 40 12/13/19 04:00 Endotracheal Tube 12/13/19 03:45 62 15 126/44 (71) 100 12/13/19 03:30 63 15 124/42 (69) 100 12/13/19 03:24 60 12/13/19 03:09 62 15 40 12/13/19 03:00 60 15 116/42 (66) 100 12/13/19 02:45 62 15 105/36 (59) 100 12/13/19 02:30 65 15 108/37 (60) 100 12/13/19 02:15 62 15 105/37 (59) 100 12/13/19 02:00 62 15 114/37 (62) 100 12/13/19 01:45 63 15 115/38 (63) 100 12/13/19 01:30 62 15 109/38 (61) 100 12/13/19 01:00 64 15 114/47 (69) 100 12/13/19 00:00 Endotracheal Tube 12/13/19 00:00 98.4 66 9 107/39 (61) 100 12/12/19 23:45 65 12 109/36 (60) 100 12/12/19 23:30 65 10 102/34 (56) 100 12/12/19 23:15 65 15 107/32 (57) 100 12/12/19 23:11 64 12/12/19 23:10 64 15 40 12/12/19 23:00 68 17 116/37 (63) 100 12/12/19 22:45 68 15 113/41 (65) 100 12/12/19 22:30 66 16 108/39 (62) 100 12/12/19 22:15 66 15 112/41 (64) 100 12/12/19 22:00 67 16 117/44 (68) 100 12/12/19 21:45 67 16 111/44 (66) 100 12/12/19 21:30 67 16 114/33 (60) 100 12/12/19 21:00 68 16 114/33 (60) 100 12/12/19 20:15 66 16 109/30 (56) 100 12/12/19 20:00 Endotracheal Tube 12/12/19 20:00 40 12/12/19 20:00 98.1 69 16 107/30 (55) 100 12/12/19 19:32 66 12/12/19 19:30 66 16 113/33 (59) 100 12/12/19 19:15 65 16 105/44 (64) 100 12/12/19 19:10 66 15 40 12/12/19 19:00 15 96/38 Mechanical Ventilator 40 12/12/19 19:00 60 16 96/38 (57) 100 12/12/19 18:00 16 97/32 Endotracheal Tube 40 12/12/19 17:00 15 111/41 Endotracheal Tube 40 12/12/19 16:30 67 16 103/33 (56) 100 12/12/19 16:15 67 16 100/34 (56) 99 12/12/19 16:00 98.8 68 15 102/30 (54) 100 12/12/19 16:00 15 102/30 Endotracheal Tube 50 12/12/19 16:00 Endotracheal Tube 12/12/19 15:19 68 12/12/19 15:00 67 18 105/35 (58) 100 12/12/19 15:00 18 105/35 Endotracheal Tube 50 12/12/19 14:43 71 15 40 12/12/19 14:05 70 19 104/35 (58) 93 12/12/19 14:00 20 104/35 Endotracheal Tube 50 12/12/19 14:00 69 20 104/35 (58) 100 12/12/19 13:55 69 19 104/35 (58) 98 12/12/19 13:40 68 18 105/38 (60) 93 12/12/19 13:25 67 22 103/37 (59) 98 Height (Feet): 5 Height (Inches): 7.00 Weight (Pounds): 210 HEENT: other - orally intubated Respiratory/Chest: other - on ventilator Cardiovascular: normal rate Abdomen: soft, non tender Extremities: other - mild edema Neurologic/Psychiatric: disoriented Microbiology Date/Time Source Procedure Growth Status 12/11/19 14:00 Blood Blood Culture - Preliminary NO GROWTH AFTER 24 HOURS Resulted 12/11/19 13:40 Blood Blood Culture - Preliminary NO GROWTH AFTER 24 HOURS Resulted 12/12/19 16:40 Sputum Gram Stain - Final Resulted 12/12/19 16:40 Sputum Sputum Culture - Preliminary NORMAL UPPER RESPIRATORY CHAIM AT 24 ... Resulted 12/11/19 14:15 Nasopharynx Coronavirus COVID-19 PCR ([facility]) - Final Complete 12/11/19 18:00 Rectum Received Laboratory Tests Test 12/13/19 03:40 12/13/19 08:26 White Blood Count 6.2 K/UL (4.8-10.8) Red Blood Count 3.32 M/UL (4.20-5.40) L Hemoglobin 10.8 G/DL (12.0-16.0) L Hematocrit 33.2 % (37.0-47.0) L Mean Corpuscular Volume 100 FL (80-99) H Mean Corpuscular Hemoglobin 32.6 PG (27.0-31.0) H Mean Corpuscular Hemoglobin Concent 32.5 G/DL (32.0-36.0) Red Cell Distribution Width 12.8 % (11.6-14.8) Platelet Count 189 K/UL (150-450) Mean Platelet Volume 6.9 FL (6.5-10.1) Neutrophils (%) (Auto) 74.0 % (45.0-75.0) Lymphocytes (%) (Auto) 16.2 % (20.0-45.0) L Monocytes (%) (Auto) 9.3 % (1.0-10.0) Eosinophils (%) (Auto) 0.3 % (0.0-3.0) Basophils (%) (Auto) 0.3 % (0.0-2.0) Sodium Level 137 MMOL/L (136-145) Potassium Level 3.0 MMOL/L (3.5-5.1) L Chloride Level 96 MMOL/L (98-107) L Carbon Dioxide Level 33 MMOL/L (21-32) H Anion Gap 8 mmol/L (5-15) Blood Urea Nitrogen 30 mg/dL (7-18) H Creatinine 1.5 MG/DL (0.55-1.30) H Estimat Glomerular Filtration Rate 33.4 mL/min (>60) Glucose Level 80 MG/DL (74-106) Uric Acid 8.8 MG/DL (2.6-7.2) H Calcium Level 7.9 MG/DL (8.5-10.1) L Phosphorus Level 2.2 MG/DL (2.5-4.9) L Magnesium Level 1.9 MG/DL (1.8-2.4) Total Bilirubin 0.8 MG/DL (0.2-1.0) Aspartate Amino Transf (AST/SGOT) 61 U/L (15-37) H Alanine Aminotransferase (ALT/SGPT) 138 U/L (12-78) H Alkaline Phosphatase 54 U/L (46-116) Troponin I 0.072 ng/mL (0.000-0.056) C-Reactive Protein, Quantitative 1.0 mg/dL (0.00-0.90) H Pro-B-Type Natriuretic Peptide 6795 pg/mL (0-125) H Total Protein 6.0 G/DL (6.4-8.2) L Albumin 3.5 G/DL (3.4-5.0) Globulin 2.5 g/dL Albumin/Globulin Ratio 1.4 (1.0-2.7) Arterial Blood pH 7.467 (7.350-7.450) Arterial Blood Partial Pressure CO2 41.5 mmHg (35.0-45.0) Arterial Blood Partial Pressure O2 85.2 mmHg (75.0-100.0) Arterial Blood HCO3 29.5 mmol/L (22.0-26.0) H Arterial Blood Oxygen Saturation 96.1 % (95-100) Arterial Blood Base Excess 5.3 (-2-2) H Raphael Test Positive Current Medications Medications (Trade) Dose Ordered Sig/Angie Route PRN Reason Start Time Stop Time Status Last Admin Dose Admin Acetaminophen (Tylenol) 650 mg Q6H PRN ORAL Mild Pain (Pain Scale 1-3) 12/12/19 12:30 01/11/20 12:29 Acetaminophen (Tylenol) 1,000 mg Q6H PRN ORAL MODERATE PAIN 12/12/19 12:30 01/11/20 12:29 Amantadine HCl (Symmetrel) 100 mg TWICE A DAY ORAL 12/12/19 18:00 01/11/20 08:59 12/13/19 08:55 Aspirin (Ecotrin) 325 mg DAILY ORAL 12/13/19 09:00 01/26/20 08:59 12/13/19 08:55 Atorvastatin Calcium (Lipitor) 10 mg BEDTIME ORAL 12/12/19 21:00 03/11/20 20:59 12/12/19 20:16 Calcium Carbonate (Os-Octavio) 1,250 mg THREE TIMES A DAY ORAL 12/12/19 13:00 03/11/20 09:59 12/13/19 12:19 Cefepime HCl 1 gm/ Dextrose 55 ml @ 110 mls/hr Q24H IVPB 12/12/19 16:00 12/19/19 15:59 12/12/19 16:52 Clonidine HCl (Catapres Tab) 0.1 mg Q6H PRN ORAL For high BP over 160 systolic 12/12/19 12:31 03/11/20 12:30 Dextrose (Dextrose 50%) 25 ml Q30M PRN IV Hypoglycemia 12/13/19 07:15 03/12/20 07:14 Dextrose (Dextrose 50%) 50 ml Q30M PRN IV Hypoglycemia 12/13/19 07:15 03/12/20 07:14 Divalproex Sodium (Depakote) 250 mg EVERY 12 HOURS ORAL 12/12/19 21:00 01/11/20 08:59 12/13/19 08:56 Docusate Sodium (Colace) 100 mg TIAC ORAL 12/12/19 16:30 01/11/20 06:29 12/13/19 11:48 Furosemide (Lasix) 40 mg BID IV 12/12/19 18:00 01/11/20 08:59 12/13/19 08:57 Insulin Aspart (NovoLOG) EVERY 6 HOURS SUBQ 12/13/19 12:00 03/12/20 11:59 Levothyroxine Sodium (Synthroid) 75 mcg DAILY IV 12/13/19 09:00 01/11/20 09:29 12/13/19 08:56 Lorazepam (Ativan) 1 mg Q6H PRN ORAL For Anxiety 12/12/19 12:31 12/19/19 12:30 Nitroglycerin (Ntg) 0.4 mg Q5MIN X 3 DOSES PRN SL CHEST PAIN 12/12/19 12:00 01/10/20 21:44 Olanzapine (ZyPREXA) 5 mg BID ORAL 12/12/19 18:00 01/26/20 08:59 Pantoprazole (Protonix) 40 mg EVERY 12 HOURS ORAL 12/12/19 21:00 01/11/20 08:59 12/13/19 08:55 Potassium Chloride 100 ml @ 100 mls/hr Q1HR IVPB 12/13/19 12:00 12/13/19 15:59 12/13/19 12:20 Propofol 100 ml @ 0 mls/hr Q24H IV 12/12/19 12:50 12/14/19 12:49 12/12/19 12:50 Sodium Chloride 1,000 ml @ 50 mls/hr Q20H IV 12/12/19 12:30 01/11/20 12:29 12/13/19 06:20 Lei Chan MD Dec 13, 2019 13:10
--- NOTE | 2019-12-13 13:12 | Nephrology Progress Note ---
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 Respiratory distress most likely secondary to pulmonary edema and or COPD exacerbation. Hyponatremia. Obese. Hypothyroidism. Elevated d-dimer. Elevated liver enzymes Plan December 12: Patient in ICU. Intubated on ventilator. Discussed with RN. Labs reviewed. Potassium supplement given. Continue per consultants. Arterial blood gas indicative of CO2 retention. Patient on the way to ICU for intubation. Continue per pulmonary management. Pulmonary support, Check 2D echocardiogram. Previous 2D echo had a 50% ejection fraction. Keep blood sugar and blood pressure in check. Thyroid panel. Monitor electrolytes and renal parameters. Afterload reduction. Diuretics Monitor serum calcium, supplements via NG tube. Per orders. Subjective ROS Limited/Unobtainable: Yes Objective Objective Last 24 Hour Vital Signs Date Time Temp Pulse Resp B/P (MAP) Pulse Ox O2 Delivery O2 Flow Rate FiO2 12/13/19 12:00 Endotracheal Tube 12/13/19 12:00 66 12/13/19 12:00 40 12/13/19 12:00 65 15 112/37 (62) 100 12/13/19 11:54 63 15 40 12/13/19 11:00 64 15 111/32 (58) 100 12/13/19 10:00 66 15 108/33 (58) 100 12/13/19 10:00 64 17 114/37 (62) 100 12/13/19 09:00 64 17 114/37 (62) 100 12/13/19 08:01 71 12/13/19 08:00 Endotracheal Tube 12/13/19 08:00 40 12/13/19 08:00 99.1 67 15 114/38 (63) 100 12/13/19 07:45 63 15 40 12/13/19 07:00 64 15 116/36 (62) 100 12/13/19 06:45 65 15 121/37 (65) 100 12/13/19 06:30 66 15 12/13/19 06:30 64 15 116/37 (63) 100 12/13/19 06:15 64 15 118/37 (64) 100 12/13/19 06:00 63 15 113/39 (63) 100 12/13/19 05:45 62 15 105/37 (59) 100 12/13/19 05:30 63 15 112/37 (62) 100 12/13/19 05:15 65 15 118/34 (62) 100 12/13/19 05:00 65 15 118/37 (64) 100 12/13/19 04:45 64 15 117/45 (69) 100 12/13/19 04:30 64 15 119/43 (68) 100 12/13/19 04:15 61 15 108/45 (66) 100 12/13/19 04:00 98.0 61 15 124/39 (67) 100 12/13/19 04:00 40 12/13/19 04:00 Endotracheal Tube 12/13/19 03:45 62 15 126/44 (71) 100 12/13/19 03:30 63 15 124/42 (69) 100 12/13/19 03:24 60 12/13/19 03:09 62 15 40 12/13/19 03:00 60 15 116/42 (66) 100 12/13/19 02:45 62 15 105/36 (59) 100 12/13/19 02:30 65 15 108/37 (60) 100 12/13/19 02:15 62 15 105/37 (59) 100 12/13/19 02:00 62 15 114/37 (62) 100 12/13/19 01:45 63 15 115/38 (63) 100 12/13/19 01:30 62 15 109/38 (61) 100 12/13/19 01:00 64 15 114/47 (69) 100 12/13/19 00:00 Endotracheal Tube 12/13/19 00:00 98.4 66 9 107/39 (61) 100 12/12/19 23:45 65 12 109/36 (60) 100 12/12/19 23:30 65 10 102/34 (56) 100 12/12/19 23:15 65 15 107/32 (57) 100 12/12/19 23:11 64 12/12/19 23:10 64 15 40 12/12/19 23:00 68 17 116/37 (63) 100 12/12/19 22:45 68 15 113/41 (65) 100 12/12/19 22:30 66 16 108/39 (62) 100 12/12/19 22:15 66 15 112/41 (64) 100 12/12/19 22:00 67 16 117/44 (68) 100 12/12/19 21:45 67 16 111/44 (66) 100 12/12/19 21:30 67 16 114/33 (60) 100 12/12/19 21:00 68 16 114/33 (60) 100 12/12/19 20:15 66 16 109/30 (56) 100 12/12/19 20:00 Endotracheal Tube 12/12/19 20:00 40 12/12/19 20:00 98.1 69 16 107/30 (55) 100 12/12/19 19:32 66 12/12/19 19:30 66 16 113/33 (59) 100 12/12/19 19:15 65 16 105/44 (64) 100 12/12/19 19:10 66 15 40 12/12/19 19:00 15 96/38 Mechanical Ventilator 40 12/12/19 19:00 60 16 96/38 (57) 100 12/12/19 18:00 16 97/32 Endotracheal Tube 40 12/12/19 17:00 15 111/41 Endotracheal Tube 40 12/12/19 16:30 67 16 103/33 (56) 100 12/12/19 16:15 67 16 100/34 (56) 99 12/12/19 16:00 98.8 68 15 102/30 (54) 100 12/12/19 16:00 15 102/30 Endotracheal Tube 50 12/12/19 16:00 Endotracheal Tube 12/12/19 15:19 68 12/12/19 15:00 67 18 105/35 (58) 100 12/12/19 15:00 18 105/35 Endotracheal Tube 50 12/12/19 14:43 71 15 40 12/12/19 14:05 70 19 104/35 (58) 93 12/12/19 14:00 20 104/35 Endotracheal Tube 50 12/12/19 14:00 69 20 104/35 (58) 100 12/12/19 13:55 69 19 104/35 (58) 98 12/12/19 13:40 68 18 105/38 (60) 93 12/12/19 13:25 67 22 103/37 (59) 98 Intake and Output 12/12/19 12/13/19 19:00 07:00 Intake Total 402.361 ml 613.33 ml Output Total 1155 ml 1425 ml Balance -752.639 ml -811.67 ml Intake IV Total 402.361 ml 583.33 ml Other 30 ml Output Urine Total 1155 ml 1425 ml Laboratory Tests 12/13/19 03:40: White Blood Count 6.2, Red Blood Count 3.32L, Hemoglobin 10.8L, Hematocrit 33.2L , Mean Corpuscular Volume 100H, Mean Corpuscular Hemoglobin 32.6H, Mean Corpuscular Hemoglobin Concent 32.5, Red Cell Distribution Width 12.8, Platelet Count 189, Mean Platelet Volume 6.9, Neutrophils (%) (Auto) 74.0, Lymphocytes (% ) (Auto) 16.2L, Monocytes (%) (Auto) 9.3, Eosinophils (%) (Auto) 0.3, Basophils (%) (Auto) 0.3, Sodium Level 137, Potassium Level 3.0L, Chloride Level 96L, Carbon Dioxide Level 33H, Anion Gap 8, Blood Urea Nitrogen 30H, Creatinine 1.5H , Estimat Glomerular Filtration Rate 33.4, Glucose Level 80, Uric Acid 8.8H, Calcium Level 7.9L, Phosphorus Level 2.2L, Magnesium Level 1.9, Total Bilirubin 0.8, Aspartate Amino Transf (AST/SGOT) 61H, Alanine Aminotransferase (ALT/SGPT) 138H, Alkaline Phosphatase 54, Troponin I 0.072H, C-Reactive Protein, Quantitative 1.0H, Pro-B-Type Natriuretic Peptide 6795H, Total Protein 6.0L, Albumin 3.5, Globulin 2.5, Albumin/Globulin Ratio 1.4 12/13/19 08:26: Arterial Blood pH 7.467H, Arterial Blood Partial Pressure CO2 41.5, Arterial Blood Partial Pressure O2 85.2, Arterial Blood HCO3 29.5H, Arterial Blood Oxygen Saturation 96.1, Arterial Blood Base Excess 5.3H, Raphael Test Positive Height (Feet): 5 Height (Inches): 7.00 Weight (Pounds): 210 General Appearance: no apparent distress EENT: other - Intubated on ventilator Cardiovascular: tachycardia Respiratory/Chest: decreased breath sounds Abdomen: soft Bryan Ochoa MD Dec 13, 2019 13:12
--- NOTE | 2019-12-13 14:34 | Cardiac Electrophysiology PN ---
Assessment/Plan Assessment/Plan 1. Respiratory failure with BNP of more than 19,000. Echo showed normal ejection fraction. Continue on Lasix. 2. 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 TSH is still elevated. 3. Respiratory failure. Patient is intubated, now on steroids and antibiotic in the intensive care unit. 4. History of Parkinson disease. 5. Hyperlipidemia. Subjective Subjective Intubated on the vent off pressors. Objective Last 24 Hour Vital Signs Date Time Temp Pulse Resp B/P (MAP) Pulse Ox O2 Delivery O2 Flow Rate FiO2 12/13/19 14:00 66 15 108/39 (62) 100 12/13/19 13:00 98.6 67 13 105/37 (59) 100 12/13/19 12:00 Endotracheal Tube 12/13/19 12:00 66 12/13/19 12:00 40 12/13/19 12:00 65 15 112/37 (62) 100 12/13/19 11:54 63 15 40 12/13/19 11:00 64 15 111/32 (58) 100 12/13/19 10:00 66 15 108/33 (58) 100 12/13/19 10:00 64 17 114/37 (62) 100 12/13/19 09:00 64 17 114/37 (62) 100 12/13/19 08:01 71 12/13/19 08:00 Endotracheal Tube 12/13/19 08:00 40 12/13/19 08:00 99.1 67 15 114/38 (63) 100 12/13/19 07:45 63 15 40 12/13/19 07:00 64 15 116/36 (62) 100 12/13/19 06:45 65 15 121/37 (65) 100 12/13/19 06:30 66 15 12/13/19 06:30 64 15 116/37 (63) 100 12/13/19 06:15 64 15 118/37 (64) 100 12/13/19 06:00 63 15 113/39 (63) 100 12/13/19 05:45 62 15 105/37 (59) 100 12/13/19 05:30 63 15 112/37 (62) 100 12/13/19 05:15 65 15 118/34 (62) 100 12/13/19 05:00 65 15 118/37 (64) 100 12/13/19 04:45 64 15 117/45 (69) 100 12/13/19 04:30 64 15 119/43 (68) 100 12/13/19 04:15 61 15 108/45 (66) 100 12/13/19 04:00 98.0 61 15 124/39 (67) 100 12/13/19 04:00 40 12/13/19 04:00 Endotracheal Tube 12/13/19 03:45 62 15 126/44 (71) 100 12/13/19 03:30 63 15 124/42 (69) 100 12/13/19 03:24 60 12/13/19 03:09 62 15 40 12/13/19 03:00 60 15 116/42 (66) 100 12/13/19 02:45 62 15 105/36 (59) 100 12/13/19 02:30 65 15 108/37 (60) 100 12/13/19 02:15 62 15 105/37 (59) 100 12/13/19 02:00 62 15 114/37 (62) 100 12/13/19 01:45 63 15 115/38 (63) 100 12/13/19 01:30 62 15 109/38 (61) 100 12/13/19 01:00 64 15 114/47 (69) 100 12/13/19 00:00 Endotracheal Tube 12/13/19 00:00 98.4 66 9 107/39 (61) 100 12/12/19 23:45 65 12 109/36 (60) 100 12/12/19 23:30 65 10 102/34 (56) 100 12/12/19 23:15 65 15 107/32 (57) 100 12/12/19 23:11 64 12/12/19 23:10 64 15 40 12/12/19 23:00 68 17 116/37 (63) 100 12/12/19 22:45 68 15 113/41 (65) 100 12/12/19 22:30 66 16 108/39 (62) 100 12/12/19 22:15 66 15 112/41 (64) 100 12/12/19 22:00 67 16 117/44 (68) 100 12/12/19 21:45 67 16 111/44 (66) 100 12/12/19 21:30 67 16 114/33 (60) 100 12/12/19 21:00 68 16 114/33 (60) 100 12/12/19 20:15 66 16 109/30 (56) 100 12/12/19 20:00 Endotracheal Tube 12/12/19 20:00 40 12/12/19 20:00 98.1 69 16 107/30 (55) 100 12/12/19 19:32 66 12/12/19 19:30 66 16 113/33 (59) 100 12/12/19 19:15 65 16 105/44 (64) 100 12/12/19 19:10 66 15 40 12/12/19 19:00 15 96/38 Mechanical Ventilator 40 12/12/19 19:00 60 16 96/38 (57) 100 12/12/19 18:00 16 97/32 Endotracheal Tube 40 12/12/19 17:00 15 111/41 Endotracheal Tube 40 12/12/19 16:30 67 16 103/33 (56) 100 12/12/19 16:15 67 16 100/34 (56) 99 12/12/19 16:00 98.8 68 15 102/30 (54) 100 12/12/19 16:00 15 102/30 Endotracheal Tube 50 12/12/19 16:00 Endotracheal Tube 12/12/19 15:19 68 12/12/19 15:00 67 18 105/35 (58) 100 12/12/19 15:00 18 105/35 Endotracheal Tube 50 12/12/19 14:43 71 15 40 Intake and Output 12/12/19 12/13/19 19:00 07:00 Intake Total 402.361 ml 613.33 ml Output Total 1155 ml 1425 ml Balance -752.639 ml -811.67 ml Intake IV Total 402.361 ml 583.33 ml Other 30 ml Output Urine Total 1155 ml 1425 ml Laboratory Tests Test 12/13/19 03:40 12/13/19 08:26 12/13/19 11:46 White Blood Count 6.2 K/UL (4.8-10.8) Red Blood Count 3.32 M/UL (4.20-5.40) L Hemoglobin 10.8 G/DL (12.0-16.0) L Hematocrit 33.2 % (37.0-47.0) L Mean Corpuscular Volume 100 FL (80-99) H Mean Corpuscular Hemoglobin 32.6 PG (27.0-31.0) H Mean Corpuscular Hemoglobin Concent 32.5 G/DL (32.0-36.0) Red Cell Distribution Width 12.8 % (11.6-14.8) Platelet Count 189 K/UL (150-450) Mean Platelet Volume 6.9 FL (6.5-10.1) Neutrophils (%) (Auto) 74.0 % (45.0-75.0) Lymphocytes (%) (Auto) 16.2 % (20.0-45.0) L Monocytes (%) (Auto) 9.3 % (1.0-10.0) Eosinophils (%) (Auto) 0.3 % (0.0-3.0) Basophils (%) (Auto) 0.3 % (0.0-2.0) Sodium Level 137 MMOL/L (136-145) Potassium Level 3.0 MMOL/L (3.5-5.1) L Chloride Level 96 MMOL/L (98-107) L Carbon Dioxide Level 33 MMOL/L (21-32) H Anion Gap 8 mmol/L (5-15) Blood Urea Nitrogen 30 mg/dL (7-18) H Creatinine 1.5 MG/DL (0.55-1.30) H Estimat Glomerular Filtration Rate 33.4 mL/min (>60) Glucose Level 80 MG/DL (74-106) Uric Acid 8.8 MG/DL (2.6-7.2) H Calcium Level 7.9 MG/DL (8.5-10.1) L Phosphorus Level 2.2 MG/DL (2.5-4.9) L Magnesium Level 1.9 MG/DL (1.8-2.4) Total Bilirubin 0.8 MG/DL (0.2-1.0) Aspartate Amino Transf (AST/SGOT) 61 U/L (15-37) H Alanine Aminotransferase (ALT/SGPT) 138 U/L (12-78) H Alkaline Phosphatase 54 U/L (46-116) Troponin I 0.072 ng/mL (0.000-0.056) C-Reactive Protein, Quantitative 1.0 mg/dL (0.00-0.90) H Pro-B-Type Natriuretic Peptide 6795 pg/mL (0-125) H Total Protein 6.0 G/DL (6.4-8.2) L Albumin 3.5 G/DL (3.4-5.0) Globulin 2.5 g/dL Albumin/Globulin Ratio 1.4 (1.0-2.7) Arterial Blood pH 7.467 (7.350-7.450) Arterial Blood Partial Pressure CO2 41.5 mmHg (35.0-45.0) Arterial Blood Partial Pressure O2 85.2 mmHg (75.0-100.0) Arterial Blood HCO3 29.5 mmol/L (22.0-26.0) H Arterial Blood Oxygen Saturation 96.1 % (95-100) Arterial Blood Base Excess 5.3 (-2-2) H Raphael Test Positive POC Whole Blood Glucose Pending Microbiology Date/Time Source Procedure Growth Status 12/11/19 14:00 Blood Blood Culture - Preliminary NO GROWTH AFTER 24 HOURS Resulted 12/11/19 13:40 Blood Blood Culture - Preliminary NO GROWTH AFTER 24 HOURS Resulted 12/12/19 16:40 Sputum Gram Stain - Final Resulted 12/12/19 16:40 Sputum Sputum Culture - Preliminary NORMAL UPPER RESPIRATORY CHAIM AT 24 ... Resulted 12/11/19 14:15 Nasopharynx Coronavirus COVID-19 PCR (JAYME) - Final Complete 12/11/19 18:00 Rectum Received Objective HEAD AND NECK: Shows she is orally intubated with no JVD. LUNGS: Coarse rhonchi. CARDIOVASCULAR: Shows regular S1 and S2 and tachycardic. ABDOMEN: Soft. EXTREMITIES: No pitting edema. Cameron Davies MD Dec 13, 2019 14:34
--- NOTE | 2019-12-13 14:55 | NUR ---
NURSE NOTES: HR 64, BP 111/36, O2 sat 100% on FiO2 40%. No respiratory distress noted. Afebrile. Will continue to monitor. Addendum: 12/13/19 at 1456 by JUAN RAMON TOLEDO RN RN NURSE NOTES: Dr Davies here to see the patient. Notified him with patient's condition including 2Decho result. No new orders. HR 64, BP 111/36, O2 sat 100% on FiO2 40%. No respiratory distress noted. Afebrile. Will continue to monitor.
--- NOTE | 2019-12-13 15:21 | NUR ---
SALES REPRESENTATIVE GROCERIES NOTE Pt is currently intubated. Pt is from [facility] [address], [place] [address]. SW confirmed w/ Abigail from [facility] office [phone] that pt is conserved by Deputy Aguirre [phone]. (LPS conservator). Pt remains full code.
[2019-12-13] MEDS: Cefepime HCl 1 GM in D5W 55 ML IVPB SCH (16:30)
--- NOTE | 2019-12-13 16:50 | NUR ---
NURSE NOTES: Cleaned and repositioned patient. VSS. Patient is tolerating the current vent setting with FiO2 40%. O2 sat 99-100%. RR 16. Afebrile. Oral care done. Will continue to monitor.
--- NOTE | 2019-12-13 17:30 | Consultation ---
DATE OF CONSULTATION: 12/13/2019 ENDOCRINOLOGY CONSULTATION CONSULTING PHYSICIAN: Jabari Adams MD REFERRING PHYSICIAN: Dani Perera MD REASON FOR CONSULTATION: Hypothyroidism. HISTORY OF PRESENT ILLNESS: The patient is an 79-year-old female, patient of Dr. Dani Perera, with history of CHF, COPD, schizophrenia, and hypothyroidism, who presented to the hospital with respiratory insufficiency. The patient had recent admission to the hospital recently. The patient went to respiratory failure, was intubated and admitted to the ICU. TSH was obtained, which was elevated at 20; therefore, Endocrinology was consulted. PAST MEDICAL HISTORY: 1. COPD. 2. Dementia. 3. Schizophrenia. 4. Parkinson's. 5. Diabetes. 6. Hypertension. 7. Mitral regurgitation. 8. Hyperlipidemia. 9. Obesity. 10. Hypothyroidism. 11. Bradycardia. PAST SURGICAL HISTORY: None. ALLERGIES: Blanco. FAMILY HISTORY: Not obtainable. SOCIAL HISTORY: History of smoking. No alcohol or drug use. She comes from a snf. MEDICATIONS: Reviewed and reconciled. REVIEW OF SYSTEMS: Unobtainable. The patient is intubated. LABORATORY VALUES: WBC 6, hemoglobin 10, hematocrit 36, platelets of 139. Sodium 137, potassium 3.0, chloride 96, bicarb 32, BUN 30, creatinine 1.5. BNP 6795. TSH 21.9. First COVID test is negative. PHYSICAL EXAMINATION: GENERAL: The patient is intubated. VITAL SIGNS: Blood pressure 121/37, heart rate 65, respiratory rate 18. HEENT: The patient is intubated. NECK: Normal alignment. HEART: Regular rate. LUNGS: Decreased breath sounds. ABDOMEN: Positive bowel sounds. EXTREMITIES: Positive for edema. DIAGNOSES: 1. Respiratory failure. 2. COPD. 3. Hypothyroidism, elevated TSH. DISCUSSION: The patient continues to be treated with IV Synthroid. I will increase the dose to 75 mcg daily. Currently, she is on 150 mcg as an outpatient. We will start glucose monitoring every 6 hours since the patient's hemoglobin A1c is elevated at 6.4. I will follow the patient closely during her hospital stay. Thank you, Dr. Perera, for the courtesy of this consultation. Jabari Adams M.D. DR: KVNG JOB#: [id number] CC: ALKA
--- NOTE | 2019-12-13 19:15 | NUR ---
HAND-OFF: Report given to DARREL Chau.
--- NOTE | 2019-12-13 19:16 | NUR ---
NURSE NOTES: Received patient from Lin Wesley RN. Will continue plan of care.
--- NOTE | 2019-12-13 20:00 | NUR ---
NURSE NOTES: Patient is intubated; ETT 7.5 @ 24cm to the left side of the lipline to vent settings AC:15, TV:450, FiO2:40%, PEEP:5, O2 saturation:100%. OGT in place but patient remains NPO currently. Ace intact and draining. Left A/C 20g IV running NS @ 50ml/hr, right wrist 20g TKO. Patient was asleep but awakens to voice and touch, shows a bit of understanding of not pulling on tubing and lines for it can be dangerous. CIGAR BANDER restraints on, ROM and skin assessed. Safety measures on; bed low, locked and alarm is on. BP:114/41 HR:67 RESP: 15, TEMP:98.4F axillary. Will continue plan of care.
--- NOTE | 2019-12-13 20:08 | NUR ---
NURSE NOTES: Edited depakote 250mg enteric coated tablet order to 250mg depakote sprinkles for OGT route.
[2019-12-13] MEDS: Depakote 125mg Sprinkles NG SCH (20:22)
--- NOTE | 2019-12-13 21:32 | General Progress Note ---
Assessment/Plan Problem List: (1) Dyspnea ICD Codes: R06.00 - Dyspnea, unspecified SNOMED: 473681557 (2) Hypothyroidism ICD Codes: E03.9 - Hypothyroidism, unspecified SNOMED: 66157027 (3) Obese ICD Codes: E66.9 - Obesity, unspecified SNOMED: 428409743, 807499219 (4) Psychosis ICD Codes: F29 - Unspecified psychosis not due to a substance or known physiological condition SNOMED: 92361584 (5) Respiratory failure ICD Codes: J96.90 - Respiratory failure, unspecified, unspecified whether with hypoxia or hypercapnia SNOMED: 820329996 (6) Respiratory distress ICD Codes: R06.03 - Acute respiratory distress SNOMED: 806173360 (7) Dyspnea ICD Codes: R06.00 - Dyspnea, unspecified SNOMED: 166920368 (8) Pneumonia ICD Codes: J18.9 - Pneumonia, unspecified organism SNOMED: 931062823 (9) Acute and chronic respiratory failure ICD Codes: J96.20 - Acute and chronic respiratory failure, unspecified whether with hypoxia or hypercapnia SNOMED: 67084639 (10) Diabetes mellitus type 2 in nonobese ICD Codes: E11.9 - Type 2 diabetes mellitus without complications SNOMED: 997031594 (11) CHF (congestive heart failure) ICD Codes: I50.9 - Heart failure, unspecified SNOMED: 37524273 Qualifiers: Qualified Codes: I50.9 - Heart failure, unspecified (12) Hypoxia ICD Codes: R09.02 - Hypoxemia SNOMED: 705683850 (13) Elevated d-dimer ICD Codes: R79.89 - Other specified abnormal findings of blood chemistry SNOMED: 499288823 (14) Schizophrenia ICD Codes: F20.9 - Schizophrenia, unspecified SNOMED: 38751324 (15) Parkinson disease ICD Codes: G20 - Parkinson's disease SNOMED: 49331646 Assessment/Plan: intubated sepsis pna covid negative chf copd niddm severe hypothroid psychosis lethargic needs fluie management Subjective ROS Limited/Unobtainable: Yes Allergies: Coded Allergies: LITHIUM (Verified Allergy, Unknown, 02/07/19) Objective Last 24 Hour Vital Signs Date Time Temp Pulse Resp B/P (MAP) Pulse Ox O2 Delivery O2 Flow Rate FiO2 7/2/20 21:00 68 13 127/39 (68) 100 12/13/19 20:00 Endotracheal Tube 12/13/19 20:00 40 12/13/19 20:00 98.4 69 15 111/73 (86) 100 12/13/19 19:46 66 15 35 12/13/19 19:37 67 12/13/19 19:00 66 15 120/40 (66) 100 12/13/19 18:00 98.7 65 15 129/42 (71) 100 12/13/19 17:00 68 15 112/45 (67) 100 12/13/19 16:00 Endotracheal Tube 12/13/19 16:00 40 12/13/19 16:00 66 16 110/43 (65) 100 12/13/19 15:30 65 12/13/19 15:29 68 15 35 12/13/19 15:00 65 15 117/35 (62) 100 12/13/19 14:00 66 15 108/39 (62) 100 12/13/19 13:00 98.6 67 13 105/37 (59) 100 12/13/19 12:00 Endotracheal Tube 12/13/19 12:00 66 12/13/19 12:00 40 12/13/19 12:00 65 15 112/37 (62) 100 12/13/19 11:54 63 15 40 12/13/19 11:00 64 15 111/32 (58) 100 12/13/19 10:00 66 15 108/33 (58) 100 12/13/19 10:00 64 17 114/37 (62) 100 12/13/19 09:00 64 17 114/37 (62) 100 12/13/19 08:01 71 12/13/19 08:00 Endotracheal Tube 12/13/19 08:00 40 12/13/19 08:00 99.1 67 15 114/38 (63) 100 12/13/19 07:45 63 15 40 12/13/19 07:00 64 15 116/36 (62) 100 12/13/19 06:45 65 15 121/37 (65) 100 12/13/19 06:30 66 15 12/13/19 06:30 64 15 116/37 (63) 100 12/13/19 06:15 64 15 118/37 (64) 100 12/13/19 06:00 63 15 113/39 (63) 100 12/13/19 05:45 62 15 105/37 (59) 100 12/13/19 05:30 63 15 112/37 (62) 100 12/13/19 05:15 65 15 118/34 (62) 100 12/13/19 05:00 65 15 118/37 (64) 100 12/13/19 04:45 64 15 117/45 (69) 100 12/13/19 04:30 64 15 119/43 (68) 100 12/13/19 04:15 61 15 108/45 (66) 100 12/13/19 04:00 98.0 61 15 124/39 (67) 100 12/13/19 04:00 40 12/13/19 04:00 Endotracheal Tube 12/13/19 03:45 62 15 126/44 (71) 100 12/13/19 03:30 63 15 124/42 (69) 100 12/13/19 03:24 60 12/13/19 03:09 62 15 40 12/13/19 03:00 60 15 116/42 (66) 100 12/13/19 02:45 62 15 105/36 (59) 100 12/13/19 02:30 65 15 108/37 (60) 100 12/13/19 02:15 62 15 105/37 (59) 100 12/13/19 02:00 62 15 114/37 (62) 100 12/13/19 01:45 63 15 115/38 (63) 100 12/13/19 01:30 62 15 109/38 (61) 100 12/13/19 01:00 64 15 114/47 (69) 100 12/13/19 00:00 Endotracheal Tube 12/13/19 00:00 98.4 66 9 107/39 (61) 100 12/12/19 23:45 65 12 109/36 (60) 100 12/12/19 23:30 65 10 102/34 (56) 100 12/12/19 23:15 65 15 107/32 (57) 100 12/12/19 23:11 64 12/12/19 23:10 64 15 40 12/12/19 23:00 68 17 116/37 (63) 100 12/12/19 22:45 68 15 113/41 (65) 100 12/12/19 22:30 66 16 108/39 (62) 100 12/12/19 22:15 66 15 112/41 (64) 100 12/12/19 22:00 67 16 117/44 (68) 100 12/12/19 21:45 67 16 111/44 (66) 100 Intake and Output 12/12/19 12/13/19 19:00 07:00 Intake Total 402.361 ml 613.33 ml Output Total 1155 ml 1425 ml Balance -752.639 ml -811.67 ml Intake IV Total 402.361 ml 583.33 ml Other 30 ml Output Urine Total 1155 ml 1425 ml Laboratory Tests 12/13/19 03:40: White Blood Count 6.2, Red Blood Count 3.32L, Hemoglobin 10.8L, Hematocrit 33.2L , Mean Corpuscular Volume 100H, Mean Corpuscular Hemoglobin 32.6H, Mean Corpuscular Hemoglobin Concent 32.5, Red Cell Distribution Width 12.8, Platelet Count 189, Mean Platelet Volume 6.9, Neutrophils (%) (Auto) 74.0, Lymphocytes (% ) (Auto) 16.2L, Monocytes (%) (Auto) 9.3, Eosinophils (%) (Auto) 0.3, Basophils (%) (Auto) 0.3, Sodium Level 137, Potassium Level 3.0L, Chloride Level 96L, Carbon Dioxide Level 33H, Anion Gap 8, Blood Urea Nitrogen 30H, Creatinine 1.5H , Estimat Glomerular Filtration Rate 33.4, Glucose Level 80, Uric Acid 8.8H, Calcium Level 7.9L, Phosphorus Level 2.2L, Magnesium Level 1.9, Total Bilirubin 0.8, Aspartate Amino Transf (AST/SGOT) 61H, Alanine Aminotransferase (ALT/SGPT) 138H, Alkaline Phosphatase 54, Troponin I 0.072H, C-Reactive Protein, Quantitative 1.0H, Pro-B-Type Natriuretic Peptide 6795H, Total Protein 6.0L, Albumin 3.5, Globulin 2.5, Albumin/Globulin Ratio 1.4 12/13/19 08:26: Arterial Blood pH 7.467H, Arterial Blood Partial Pressure CO2 41.5, Arterial Blood Partial Pressure O2 85.2, Arterial Blood HCO3 29.5H, Arterial Blood Oxygen Saturation 96.1, Arterial Blood Base Excess 5.3H, Raphael Test Positive 12/13/19 11:46: POC Whole Blood Glucose [Pending] Height (Feet): 5 Height (Inches): 7.00 Weight (Pounds): 210 General Appearance: lethargic Respiratory/Chest: rhonchi - bilaterally Dani Perera MD Dec 13, 2019 21:32
--- NOTE | 2019-12-13 22:00 | NUR ---
NURSE NOTES: Patient is seen resting comfortably, showing no signs of pain or distress. BP:110/39 HR:64, O2 saturation:100%, RESP:15.
--- NOTE | 2019-12-13 23:52 | Psych Consult Progress Note ---
Psychiatry Progress Note Psychiatry Progress Note Subjective still intubated. able to communicate via nodding poor cognition episodes o anxiety no si/hi Medications Current Medications Medications (Trade) Dose Ordered Sig/Angie Route PRN Reason Start Time Stop Time Status Last Admin Dose Admin Acetaminophen (Tylenol) 650 mg Q6H PRN ORAL Mild Pain (Pain Scale 1-3) 12/12/19 12:30 01/11/20 12:29 Acetaminophen (Tylenol) 1,000 mg Q6H PRN ORAL MODERATE PAIN 12/12/19 12:30 01/11/20 12:29 Amantadine HCl (Symmetrel) 100 mg TWICE A DAY ORAL 12/12/19 18:00 01/11/20 08:59 12/13/19 17:28 Aspirin (Ecotrin) 325 mg DAILY ORAL 12/13/19 09:00 01/26/20 08:59 12/13/19 08:55 Atorvastatin Calcium (Lipitor) 10 mg BEDTIME ORAL 12/12/19 21:00 03/11/20 20:59 12/13/19 20:21 Calcium Carbonate (Os-Octavio) 1,250 mg THREE TIMES A DAY ORAL 12/12/19 13:00 03/11/20 09:59 12/13/19 17:28 Cefepime HCl 1 gm/ Dextrose 55 ml @ 110 mls/hr Q24H IVPB 12/12/19 16:00 12/19/19 15:59 12/13/19 16:30 Clonidine HCl (Catapres Tab) 0.1 mg Q6H PRN ORAL For high BP over 160 systolic 12/12/19 12:31 03/11/20 12:30 Dextrose (Dextrose 50%) 25 ml Q30M PRN IV Hypoglycemia 12/13/19 07:15 03/12/20 07:14 Dextrose (Dextrose 50%) 50 ml Q30M PRN IV Hypoglycemia 12/13/19 07:15 03/12/20 07:14 Divalproex Sodium (Depakote Sprinkles) 250 mg EVERY 12 HOURS NG 12/13/19 21:00 01/12/20 20:59 12/13/19 20:22 Docusate Sodium (Colace) 100 mg TIAC ORAL 12/12/19 16:30 01/11/20 06:29 12/13/19 16:31 Furosemide (Lasix) 40 mg BID IV 12/12/19 18:00 01/11/20 08:59 12/13/19 17:28 Insulin Aspart (NovoLOG) EVERY 6 HOURS SUBQ 12/13/19 12:00 03/12/20 11:59 Levothyroxine Sodium (Synthroid) 75 mcg DAILY IV 12/13/19 09:00 01/11/20 09:29 12/13/19 08:56 Lorazepam (Ativan) 1 mg Q6H PRN ORAL For Anxiety 12/12/19 12:31 12/19/19 12:30 Nitroglycerin (Ntg) 0.4 mg Q5MIN X 3 DOSES PRN SL CHEST PAIN 12/12/19 12:00 01/10/20 21:44 Olanzapine (ZyPREXA) 5 mg BID ORAL 12/12/19 18:00 01/26/20 08:59 12/13/19 17:28 Pantoprazole (Protonix) 40 mg EVERY 12 HOURS ORAL 12/12/19 21:00 01/11/20 08:59 12/13/19 20:21 Propofol 100 ml @ 0 mls/hr Q24H IV 12/12/19 12:50 12/14/19 12:49 12/12/19 12:50 Sodium Chloride 1,000 ml @ 50 mls/hr Q20H IV 12/12/19 12:30 01/11/20 12:29 12/13/19 06:20 Allergies: Coded Allergies: LITHIUM (Verified Allergy, Unknown, 02/07/19) Objective Data Height (Feet): 5 Height (Inches): 7.00 Weight (Pounds): 210 General Appearance: WD/WN, no apparent distress, alert Perceptual Disturbances: hallucinations Mental Status Exam - Suicidal: not present Assessment/Plan [place] I: Schizoaffective disorder -depakote -zprexa -provided ro/Kiana Ken MD Dec 13, 2019 23:52
[2019-12-14] VITALS (32 sets, daily range): BP systolic 105–130; BP diastolic 37–48
--- NOTE | 2019-12-14 | NUR ---
NURSE NOTES: Accucheck 73, no coverage needed. BP:114/38, HR:65, B0iqotughtxq: 100%. Continues to awake to voice and touch.
--- NOTE | 2019-12-14 02:00 | NUR ---
NURSE NOTES: Bed bath given, linens changed, air mattress placed, turned and repositioned, oral care and suctioning provided. Patient was awake and compliant and helpful during bath.
[2019-12-14] MEDS: NovoLOG Insulin Flexpen SUBQ SCH ×4 (05:44→23:50)
[2019-12-14] MEDS: Docusate 100mg cap ORAL SCH ×3 (05:44→16:25)
[2019-12-14 05:51] LABS: BASOPHILS % (AUTO) 0.5 % (0.0-2.0); EOSINOPHILS % (AUTO) 1.2 % (0.0-3.0); HEMATOCRIT 35.5 % (37.0-47.0); HEMOGLOBIN 11.4 G/DL (12.0-16.0); LYMPHOCYTES % (AUTO) 19.8 % (20.0-45.0); MEAN CORPUSCULAR VOLUME 101 FL (80-99); MONOCYTES % (AUTO) 7.4 % (1.0-10.0); NEUTROPHILS % (AUTO) 71.2 % (45.0-75.0); PLATELET COUNT 186 K/UL (150-450); RED BLOOD COUNT 3.53 M/UL (4.20-5.40); WHITE BLOOD COUNT 5.2 K/UL (4.8-10.8)
[2019-12-14 06:22] LABS: ALANINE AMINOTRANSFERASE 112 U/L (12-78); ALBUMIN 3.4 G/DL (3.4-5.0); ALBUMIN/GLOBULIN RATIO 1.2 (1.0-2.7); ALKALINE PHOSPHATASE 56 U/L (46-116); ANION GAP 8 mmol/L (5-15); ASPARTATE AMINO TRANSFERASE 49 U/L (15-37); BILIRUBIN,TOTAL 1.1 MG/DL (0.2-1.0); BLOOD UREA NITROGEN 26 mg/dL (7-18); CALCIUM 7.6 MG/DL (8.5-10.1); CARBON DIOXIDE 33 MMOL/L (21-32); CHLORIDE 95 MMOL/L (98-107); CREATININE 1.3 MG/DL (0.55-1.30); SODIUM 136 MMOL/L (136-145)
[2019-12-14 06:26] LABS: POTASSIUM 2.6 MMOL/L (3.5-5.1)
[2019-12-14 06:38] LABS: BILIRUBIN,DIRECT 0.2 MG/DL (0.0-0.3)
--- NOTE | 2019-12-14 07:03 | NUR ---
NURSE NOTES: Received report from DARREL Chau. Will continue plan of care.
--- NOTE | 2019-12-14 07:04 | NUR ---
HAND-OFF: Report given to DARREL TROY.
--- NOTE | 2019-12-14 07:45 | NUR ---
NURSE NOTES: Patient is in bed, opens eyes to tactile stimuli, able to follow simple commands such as nodding and blinking. Patient is orally intubated with ETT 7.5 at 24cm on the lip with vent settings AC 15, TV 450, FiO2 35% and PEEP 5; SpO2 100%, no respiratory distress noted at this time. Patient has OGT in place, patent, NPO at this time per MD order; will follow up for diet orders. Patient has PIV on left AC 20g, intact, patent, infusing NS at 50ml/hr. Right wrist PIV 20g intact and patent. Patient has bilateral soft wrist restraints in place to avoid self extubation. Bilateral radial pulses are palpable as well as on bilateral dorsalis pedis. Bilateral upper extremities noted to be edematous. Patient has a valerio catheter in place, patent with light jovi urine output noted; draining to gravity. SCD in place on bilateral lower extremities. Patient has no s/s of pain/discomfort at this time. Safety measures in place, bed is locked, alarmed, and in lowest position, side rails up x3, and call light left within reach. All needs attended to. Reinforced education on patient not to pull ETT/OGT, patient nodded for understanding. Will continue to monitor.
--- NOTE | 2019-12-14 07:59 | General Progress Note ---
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 - Other specified diabetes mellitus without complications SNOMED: 386429140 (2) Parkinson disease ICD Codes: G20 - Parkinson's disease SNOMED: 35436865 (3) Schizophrenia ICD Codes: F20.9 - Schizophrenia, unspecified SNOMED: 14872080 (4) Hypertension ICD Codes: I10 - Essential (primary) hypertension SNOMED: 82508466 (5) Respiratory failure ICD Codes: J96.90 - Respiratory failure, unspecified, unspecified whether with hypoxia or hypercapnia SNOMED: 307202943 (6) Hypothyroidism ICD Codes: E03.9 - Hypothyroidism, unspecified SNOMED: 26080892 Assessment/Plan: continue Levothyroxine 75 mcg IV daily continue Novolog sliding scale every 6 hours hypoglycemia protocol in order Subjective ROS Limited/Unobtainable: Yes Allergies: Coded Allergies: LITHIUM (Verified Allergy, Unknown, 02/07/19) Subjective events noted intubated glucose values on lower side Item Value Date Time Bedside Blood Glucose 74 mg/dl 12/14/19 0600 Bedside Blood Glucose 73 mg/dl 12/14/19 0000 Bedside Blood Glucose 72 mg/dl 12/13/19 1724 Bedside Blood Glucose 77 mg/dl 12/13/19 1149 Objective Last 24 Hour Vital Signs Date Time Temp Pulse Resp B/P (MAP) Pulse Ox O2 Delivery O2 Flow Rate FiO2 12/14/19 07:20 65 15 35 12/14/19 07:00 64 15 122/39 (66) 100 12/14/19 06:30 64 15 12/14/19 06:30 64 15 120/39 (66) 100 12/14/19 06:00 64 15 123/40 (67) 100 12/14/19 05:00 62 15 122/38 (66) 100 12/14/19 04:30 62 15 122/39 (66) 100 12/14/19 04:00 98.5 64 15 130/39 (69) 100 12/14/19 04:00 40 12/14/19 04:00 Endotracheal Tube 12/14/19 03:14 61 12/14/19 03:06 68 15 35 12/14/19 03:00 63 15 126/39 (68) 100 12/14/19 02:30 61 15 125/39 (67) 100 12/14/19 02:00 60 15 121/37 (65) 100 12/14/19 01:30 61 15 117/38 (64) 100 12/14/19 01:00 65 14 121/46 (71) 100 12/14/19 00:00 98.3 63 0 105/39 (61) 100 12/14/19 00:00 Endotracheal Tube 12/13/19 23:44 63 15 35 12/13/19 23:20 64 12/13/19 23:00 63 16 105/38 (60) 100 12/13/19 22:00 64 15 110/39 (62) 100 12/13/19 21:00 68 13 127/39 (68) 100 12/13/19 20:00 Endotracheal Tube 12/13/19 20:00 40 12/13/19 20:00 98.4 69 15 111/73 (86) 100 12/13/19 19:46 66 15 35 12/13/19 19:37 67 12/13/19 19:00 66 15 120/40 (66) 100 12/13/19 18:00 98.7 65 15 129/42 (71) 100 12/13/19 17:00 68 15 112/45 (67) 100 12/13/19 16:00 Endotracheal Tube 12/13/19 16:00 40 12/13/19 16:00 66 16 110/43 (65) 100 12/13/19 15:30 65 12/13/19 15:29 68 15 35 12/13/19 15:00 65 15 117/35 (62) 100 12/13/19 14:00 66 15 108/39 (62) 100 12/13/19 13:00 98.6 67 13 105/37 (59) 100 12/13/19 12:00 Endotracheal Tube 12/13/19 12:00 66 12/13/19 12:00 40 12/13/19 12:00 65 15 112/37 (62) 100 12/13/19 11:54 63 15 40 12/13/19 11:00 64 15 111/32 (58) 100 12/13/19 10:00 66 15 108/33 (58) 100 12/13/19 10:00 64 17 114/37 (62) 100 12/13/19 09:00 64 17 114/37 (62) 100 12/13/19 08:01 71 12/13/19 08:00 Endotracheal Tube 12/13/19 08:00 40 12/13/19 08:00 99.1 67 15 114/38 (63) 100 Intake and Output 12/13/19 12/14/19 19:00 07:00 Intake Total 1155 ml 695 ml Output Total 1530 ml 1635 ml Balance -375 ml -940 ml Intake IV Total 1055 ml 575 ml Other 100 ml 120 ml Output Urine Total 1530 ml 1635 ml Laboratory Tests 12/13/19 08:26: Arterial Blood pH 7.467H, Arterial Blood Partial Pressure CO2 41.5, Arterial Blood Partial Pressure O2 85.2, Arterial Blood HCO3 29.5H, Arterial Blood Oxygen Saturation 96.1, Arterial Blood Base Excess 5.3H, Raphael Test Positive 12/13/19 11:46: POC Whole Blood Glucose [Pending] 12/14/19 04:15: White Blood Count 5.2, Red Blood Count 3.53L, Hemoglobin 11.4L, Hematocrit 35.5L , Mean Corpuscular Volume 101H, Mean Corpuscular Hemoglobin 32.4H, Mean Corpuscular Hemoglobin Concent 32.1, Red Cell Distribution Width 13.0, Platelet Count 186, Mean Platelet Volume 6.8, Neutrophils (%) (Auto) 71.2, Lymphocytes (% ) (Auto) 19.8L, Monocytes (%) (Auto) 7.4, Eosinophils (%) (Auto) 1.2, Basophils (%) (Auto) 0.5, Sodium Level 136, Potassium Level 2.6*L, Chloride Level 95L, Carbon Dioxide Level 33H, Anion Gap 8, Blood Urea Nitrogen 26H, Creatinine 1.3, Estimat Glomerular Filtration Rate 39.4, Glucose Level 66L, Calcium Level 7.6L, Phosphorus Level 2.0L, Magnesium Level 1.7L, Total Bilirubin 1.1H, Direct Bilirubin 0.2, Aspartate Amino Transf (AST/SGOT) 49H, Alanine Aminotransferase ( ALT/SGPT) 112H, Alkaline Phosphatase 56, C-Reactive Protein, Quantitative 5.5H, Pro-B-Type Natriuretic Peptide 2250H, Total Protein 6.2L, Albumin 3.4, Globulin 2.8, Albumin/Globulin Ratio 1.2 Height (Feet): 5 Height (Inches): 7.00 Weight (Pounds): 210 General Appearance: other - intubated EENT: other - ETT Cardiovascular: tachycardia Respiratory/Chest: decreased breath sounds Abdomen: normal bowel sounds Pelvis: normal external exam Objective Current Medications Medications (Trade) Dose Ordered Sig/Angie Route PRN Reason Start Time Stop Time Status Last Admin Dose Admin Acetaminophen (Tylenol) 650 mg Q6H PRN ORAL Mild Pain (Pain Scale 1-3) 12/12/19 12:30 01/11/20 12:29 Acetaminophen (Tylenol) 1,000 mg Q6H PRN ORAL MODERATE PAIN 12/12/19 12:30 01/11/20 12:29 Amantadine HCl (Symmetrel) 100 mg TWICE A DAY ORAL 12/12/19 18:00 01/11/20 08:59 12/13/19 17:28 Aspirin (Ecotrin) 325 mg DAILY ORAL 12/13/19 09:00 01/26/20 08:59 12/13/19 08:55 Atorvastatin Calcium (Lipitor) 10 mg BEDTIME ORAL 12/12/19 21:00 03/11/20 20:59 12/13/19 20:21 Calcium Carbonate (Os-Octavio) 1,250 mg THREE TIMES A DAY ORAL 12/12/19 13:00 03/11/20 09:59 12/13/19 17:28 Cefepime HCl 1 gm/ Dextrose 55 ml @ 110 mls/hr Q24H IVPB 12/12/19 16:00 12/19/19 15:59 12/13/19 16:30 Clonidine HCl (Catapres Tab) 0.1 mg Q6H PRN ORAL For high BP over 160 systolic 12/12/19 12:31 03/11/20 12:30 Dextrose (Dextrose 50%) 25 ml Q30M PRN IV Hypoglycemia 12/13/19 07:15 03/12/20 07:14 Dextrose (Dextrose 50%) 50 ml Q30M PRN IV Hypoglycemia 12/13/19 07:15 03/12/20 07:14 Divalproex Sodium (Depakote Sprinkles) 250 mg EVERY 12 HOURS NG 12/13/19 21:00 01/12/20 20:59 12/13/19 20:22 Docusate Sodium (Colace) 100 mg TIAC ORAL 12/12/19 16:30 01/11/20 06:29 12/14/19 05:44 Furosemide (Lasix) 40 mg BID IV 12/12/19 18:00 01/11/20 08:59 12/13/19 17:28 Insulin Aspart (NovoLOG) EVERY 6 HOURS SUBQ 12/13/19 12:00 03/12/20 11:59 Levothyroxine Sodium (Synthroid) 75 mcg DAILY IV 12/13/19 09:00 01/11/20 09:29 12/13/19 08:56 Lorazepam (Ativan) 1 mg Q6H PRN ORAL For Anxiety 12/12/19 12:31 12/19/19 12:30 Nitroglycerin (Ntg) 0.4 mg Q5MIN X 3 DOSES PRN SL CHEST PAIN 12/12/19 12:00 01/10/20 21:44 Olanzapine (ZyPREXA) 5 mg BID ORAL 12/12/19 18:00 01/26/20 08:59 12/13/19 17:28 Pantoprazole (Protonix) 40 mg EVERY 12 HOURS IVP 12/14/19 09:00 01/13/20 08:59 Propofol 100 ml @ 0 mls/hr Q24H IV 12/12/19 12:50 12/14/19 12:49 12/12/19 12:50 Sodium Chloride 1,000 ml @ 50 mls/hr Q20H IV 12/12/19 12:30 01/11/20 12:29 12/14/19 02:30 Jabari Adams MD Dec 14, 2019 07:59
--- NOTE | 2019-12-14 08:45 | NUR ---
NURSE NOTES: Scheduled AM meds given. No residual noted on the OGT. Oral care provided and repositioned patient. Will continue to monitor.
[2019-12-14] MEDS: Pantoprazole Inj IVP SCH ×2 (08:47→20:33)
[2019-12-14] MEDS: Depakote 125mg Sprinkles NG SCH ×2 (08:47→20:33)
[2019-12-14] MEDS: Aspirin EC 325mg tab ORAL SCH (08:47)
[2019-12-14] MEDS: Amantadine 100mg cap ORAL SCH ×2 (08:47→17:17)
[2019-12-14] MEDS: Os-Cal (Oyster Shell) 500mg tab ORAL SCH ×3 (08:48→17:17)
--- NOTE | 2019-12-14 09:30 | NUR ---
NURSE NOTES: Spoke with Dr Vidal; received order ok to start TF per dietitian recommendation. Also notified and made aware of patient's potassium level, new orders received via telephone, read back and verified; will enter and will carry out.
--- NOTE | 2019-12-14 10:00 | NUR ---
NURSE NOTES: TF started as ordered, HOB placed elevated to avoid aspiration. Repositioned patient. VSS on the monitor, no distress at this time. Will continue to monitor.
--- NOTE | 2019-12-14 10:12 | NUR ---
CASE MANAGEMENT: REVIEW 12/14/2019 SI:RESP FAILURE W/ HYPOXIA VS: T 97.8 HR 66 RR 15 B/P 130/41 SATS 100% ON MECH VENT FIO2 35 LABS: K 2.6 CL 95 CO2 33 BUN 26 GLU 66 CA 7.6 PHOS 2 MG 1.7 TBILI 1.1 AST 49 ALP 112 IS:NS @ 50 ML/HR INSULIN ASPART SUBQ Q6H DEPAKOTE NG Q12H PROTONIX IV Q12H LIPITOR PO QHS LASIX IV BID ASA PO QD KCL IV @ Q1H CEFEPIME IV Q24H ICU
--- NOTE | 2019-12-14 10:12 | Infectious Diseases Prog Note ---
Assessment/Plan Assessment/Plan IMPRESSION: COPD exacerbation, Pneumonia, COID19 X 1: negative Acute respiratory failure with hypercapnia Dementia, Parkinson, Mitral valve regurgitation, Hypertension, Hypothyroidism. Hypokalemia RECOMMENDATION: Continue IV cefepime. We will follow up the cultures & repeated COVID19 test Subjective ROS Limited/Unobtainable: Yes Constitutional: Denies: fever Allergies: Coded Allergies: LITHIUM (Verified Allergy, Unknown, 02/07/19) Objective Last 24 Hour Vital Signs Date Time Temp Pulse Resp B/P (MAP) Pulse Ox O2 Delivery O2 Flow Rate FiO2 12/14/19 10:00 67 15 127/46 (73) 100 12/14/19 09:00 65 15 126/40 (68) 100 12/14/19 09:00 35 12/14/19 08:00 97.8 66 15 130/41 (70) 100 12/14/19 07:20 65 15 35 12/14/19 07:00 64 15 122/39 (66) 100 12/14/19 06:30 64 15 12/14/19 06:30 64 15 120/39 (66) 100 12/14/19 06:00 64 15 123/40 (67) 100 12/14/19 05:00 62 15 122/38 (66) 100 12/14/19 04:30 62 15 122/39 (66) 100 12/14/19 04:00 98.5 64 15 130/39 (69) 100 12/14/19 04:00 40 12/14/19 04:00 Endotracheal Tube 12/14/19 03:14 61 12/14/19 03:06 68 15 35 12/14/19 03:00 63 15 126/39 (68) 100 12/14/19 02:30 61 15 125/39 (67) 100 12/14/19 02:00 60 15 121/37 (65) 100 12/14/19 01:30 61 15 117/38 (64) 100 12/14/19 01:00 65 14 121/46 (71) 100 12/14/19 00:00 98.3 63 0 105/39 (61) 100 12/14/19 00:00 Endotracheal Tube 12/13/19 23:44 63 15 35 12/13/19 23:20 64 12/13/19 23:00 63 16 105/38 (60) 100 12/13/19 22:00 64 15 110/39 (62) 100 12/13/19 21:00 68 13 127/39 (68) 100 12/13/19 20:00 Endotracheal Tube 12/13/19 20:00 40 12/13/19 20:00 98.4 69 15 111/73 (86) 100 12/13/19 19:46 66 15 35 12/13/19 19:37 67 12/13/19 19:00 66 15 120/40 (66) 100 12/13/19 18:00 98.7 65 15 129/42 (71) 100 12/13/19 17:00 68 15 112/45 (67) 100 12/13/19 16:00 Endotracheal Tube 12/13/19 16:00 40 12/13/19 16:00 66 16 110/43 (65) 100 12/13/19 15:30 65 12/13/19 15:29 68 15 35 12/13/19 15:00 65 15 117/35 (62) 100 12/13/19 14:00 66 15 108/39 (62) 100 12/13/19 13:00 98.6 67 13 105/37 (59) 100 12/13/19 12:00 Endotracheal Tube 12/13/19 12:00 66 12/13/19 12:00 40 12/13/19 12:00 65 15 112/37 (62) 100 12/13/19 11:54 63 15 40 12/13/19 11:00 64 15 111/32 (58) 100 Height (Feet): 5 Height (Inches): 7.00 Weight (Pounds): 210 HEENT: mucous membranes moist, other - orally intubated Respiratory/Chest: other - on ventilator, FIO2=35% Cardiovascular: normal rate Abdomen: soft, non tender Neurologic/Psychiatric: disoriented, other - on restraint Microbiology Date/Time Source Procedure Growth Status 12/11/19 14:00 Blood Blood Culture - Preliminary NO GROWTH AFTER 48 HOURS Resulted 12/11/19 13:40 Blood Blood Culture - Preliminary NO GROWTH AFTER 48 HOURS Resulted 12/12/19 16:40 Sputum Gram Stain - Final Complete 12/12/19 16:40 Sputum Sputum Culture - Final NORMAL UPPER RESPIRATORY CHAIM PRESENT Complete 12/11/19 18:00 Nasal Nares MRSA Culture - Final Staphylococcus Aureus - Mrsa Complete 12/11/19 14:15 Nasopharynx Coronavirus COVID-19 PCR (JAYME) - Final Complete 12/11/19 18:00 Rectum - Final NO CARBAPENEM-RESISTANT ENTEROBACTERI... Complete 12/11/19 18:00 Rectum VRE Culture - Final NO VANCOMYCIN RESISTANT ENTEROCOCCUS ... Complete Laboratory Tests Test 12/13/19 11:46 12/14/19 04:15 POC Whole Blood Glucose Pending White Blood Count 5.2 K/UL (4.8-10.8) Red Blood Count 3.53 M/UL (4.20-5.40) L Hemoglobin 11.4 G/DL (12.0-16.0) L Hematocrit 35.5 % (37.0-47.0) L Mean Corpuscular Volume 101 FL (80-99) H Mean Corpuscular Hemoglobin 32.4 PG (27.0-31.0) H Mean Corpuscular Hemoglobin Concent 32.1 G/DL (32.0-36.0) Red Cell Distribution Width 13.0 % (11.6-14.8) Platelet Count 186 K/UL (150-450) Mean Platelet Volume 6.8 FL (6.5-10.1) Neutrophils (%) (Auto) 71.2 % (45.0-75.0) Lymphocytes (%) (Auto) 19.8 % (20.0-45.0) L Monocytes (%) (Auto) 7.4 % (1.0-10.0) Eosinophils (%) (Auto) 1.2 % (0.0-3.0) Basophils (%) (Auto) 0.5 % (0.0-2.0) Sodium Level 136 MMOL/L (136-145) Potassium Level 2.6 MMOL/L (3.5-5.1) *L Chloride Level 95 MMOL/L (98-107) L Carbon Dioxide Level 33 MMOL/L (21-32) H Anion Gap 8 mmol/L (5-15) Blood Urea Nitrogen 26 mg/dL (7-18) H Creatinine 1.3 MG/DL (0.55-1.30) Estimat Glomerular Filtration Rate 39.4 mL/min (>60) Glucose Level 66 MG/DL (74-106) L Calcium Level 7.6 MG/DL (8.5-10.1) L Phosphorus Level 2.0 MG/DL (2.5-4.9) L Magnesium Level 1.7 MG/DL (1.8-2.4) L Total Bilirubin 1.1 MG/DL (0.2-1.0) H Direct Bilirubin 0.2 MG/DL (0.0-0.3) Aspartate Amino Transf (AST/SGOT) 49 U/L (15-37) H Alanine Aminotransferase (ALT/SGPT) 112 U/L (12-78) H Alkaline Phosphatase 56 U/L (46-116) C-Reactive Protein, Quantitative 5.5 mg/dL (0.00-0.90) H Pro-B-Type Natriuretic Peptide 2250 pg/mL (0-125) H Total Protein 6.2 G/DL (6.4-8.2) L Albumin 3.4 G/DL (3.4-5.0) Globulin 2.8 g/dL Albumin/Globulin Ratio 1.2 (1.0-2.7) Current Medications Medications (Trade) Dose Ordered Sig/Angie Route PRN Reason Start Time Stop Time Status Last Admin Dose Admin Acetaminophen (Tylenol) 650 mg Q6H PRN ORAL Mild Pain (Pain Scale 1-3) 12/12/19 12:30 01/11/20 12:29 Acetaminophen (Tylenol) 1,000 mg Q6H PRN ORAL MODERATE PAIN 12/12/19 12:30 01/11/20 12:29 Amantadine HCl (Symmetrel) 100 mg TWICE A DAY ORAL 12/12/19 18:00 01/11/20 08:59 12/14/19 08:47 Aspirin (Ecotrin) 325 mg DAILY ORAL 12/13/19 09:00 01/26/20 08:59 12/14/19 08:47 Atorvastatin Calcium (Lipitor) 10 mg BEDTIME ORAL 12/12/19 21:00 03/11/20 20:59 12/13/19 20:21 Calcium Carbonate (Os-Octavio) 1,250 mg THREE TIMES A DAY ORAL 12/12/19 13:00 03/11/20 09:59 12/14/19 08:48 Cefepime HCl 1 gm/ Dextrose 55 ml @ 110 mls/hr Q24H IVPB 12/12/19 16:00 12/19/19 15:59 12/13/19 16:30 Clonidine HCl (Catapres Tab) 0.1 mg Q6H PRN ORAL For high BP over 160 systolic 12/12/19 12:31 03/11/20 12:30 Dextrose (Dextrose 50%) 25 ml Q30M PRN IV Hypoglycemia 12/13/19 07:15 03/12/20 07:14 Dextrose (Dextrose 50%) 50 ml Q30M PRN IV Hypoglycemia 12/13/19 07:15 03/12/20 07:14 Divalproex Sodium (Depakote Sprinkles) 250 mg EVERY 12 HOURS NG 12/13/19 21:00 01/12/20 20:59 12/14/19 08:47 Docusate Sodium (Colace) 100 mg TIAC ORAL 12/12/19 16:30 01/11/20 06:29 12/14/19 05:44 Furosemide (Lasix) 40 mg BID IV 12/12/19 18:00 01/11/20 08:59 12/14/19 09:36 Insulin Aspart (NovoLOG) EVERY 6 HOURS SUBQ 12/13/19 12:00 03/12/20 11:59 Levothyroxine Sodium (Synthroid) 75 mcg DAILY IV 12/13/19 09:00 01/11/20 09:29 12/14/19 09:35 Lorazepam (Ativan) 1 mg Q6H PRN ORAL For Anxiety 12/12/19 12:31 12/19/19 12:30 Nitroglycerin (Ntg) 0.4 mg Q5MIN X 3 DOSES PRN SL CHEST PAIN 12/12/19 12:00 01/10/20 21:44 Olanzapine (ZyPREXA) 5 mg BID ORAL 12/12/19 18:00 01/26/20 08:59 12/14/19 08:47 Pantoprazole (Protonix) 40 mg EVERY 12 HOURS IVP 12/14/19 09:00 01/13/20 08:59 12/14/19 08:47 Potassium Chloride 100 ml @ 100 mls/hr Q1H IVPB 12/14/19 09:30 12/14/19 12:29 12/14/19 09:40 Propofol 100 ml @ 0 mls/hr Q24H IV 12/12/19 12:50 12/14/19 12:49 12/12/19 12:50 Sodium Chloride 1,000 ml @ 50 mls/hr Q20H IV 12/12/19 12:30 01/11/20 12:29 12/14/19 02:30 Lei Chan MD Dec 14, 2019 10:12
--- NOTE | 2019-12-14 10:29 | Consultation ---
DATE OF CONSULTATION: 12/14/2019 GASTROENTEROLOGY CONSULTATION CONSULTING PHYSICIAN: Kirk Vidal MD. REFERRING PHYSICIAN: Dani Perera MD. CHIEF COMPLAINT: Dysphagia and respiratory failure. HISTORY OF PRESENT ILLNESS: Most of history per chart. An 79-year-old female who was admitted to the hospital with shortness of breath, most probably COPD exacerbation, required intubation, so most of history per chart. Currently, the patient has an NG tube placement. Also, had tube placement and GI consultation was requested for evaluation for feeding. Also, the patient has abnormal liver function tests and needs followup. PAST MEDICAL HISTORY: 1. Hypertension. 2. COPD. 3. Coronary artery disease. 4. CHF. 5. Schizoaffective disorder. 6. Dementia. 7. Obesity. 8. Anemia. 9. Parkinson disease. 10. Hypothyroidism. 11. Obstructive sleep apnea. 12. Hypercholesteremia. PAST SURGICAL HISTORY: Unknown. ALLERGIES: [place]. MEDICATIONS: Please see medication reconciliation list. SOCIAL HISTORY: Currently lives in a retirement. No history of tobacco, alcohol, or drug abuse. FAMILY HISTORY: Noncontributory. REVIEW OF SYSTEMS: Unable to obtain. PHYSICAL EXAMINATION: VITAL SIGNS: Temperature is 98.5, pulse 65, respirations 16, blood pressure 122/39. HEENT: Normocephalic and atraumatic. Sclerae anicteric. NECK: Supple. No evidence of obvious lymphadenopathy. CARDIOVASCULAR: Regular rate and rhythm. Plus S1, S2. LUNGS: Decreased breath sounds bilaterally based on the supine exam. ABDOMEN: Soft, nontender. No rebound. No guarding. No peritoneal sign. EXTREMITIES: No cyanosis, no clubbing, no edema. LABORATORY DATA: White count is 5.2, hemoglobin 11, hematocrit 35, and platelet count 186,000. Chem-7, sodium 136, potassium 2.6. AST of 49, ALT of 112. ASSESSMENT: An 79-year-old female with respiratory failure, dysphagia, hypokalemia, abnormal liver function tests, and microcytic anemia. PLAN: 1. Workup for anemia. 2. Workup for abnormal liver function tests. 3. Start tube feeding through the tube. 4. Follow Cardiology and follow Pulmonology recommendations. 5. We will follow on daily basis and make further recommendation as we go along. I want to thank Dr. Dani Perera for this kind referral. Kirk Vidal M.D. DR: MARY JOB#: [id number] CC:
--- NOTE | 2019-12-14 11:00 | NUR ---
NURSE NOTES: Dr Ochoa present in the unit, updated on patient's condition. Stated he put in orders for the patient. Noted, will carry out.
--- NOTE | 2019-12-14 11:36 | Hematology/Onc Progress Note ---
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 ( combination of moderate aortic regurgitation and severe mitral regurgitation) --> diuresis as per cards --> lasix last time # Severe ascending aortic dilatation --> per cards, Dr Davies # Hypertension # Parkinson disease # Hyperlipidemia # Hypothyroidism # Dementia # Obesity # Schizophrenia --> as per [facility] --> restraints # Dvt ppx lovenox sq Appreciate senior analytic consultant care and alexei Rn Subjective Constitutional: Denies: no symptoms, chills, fever, malaise, weakness, other HEENT: Denies: no symptoms, eye pain, blurred vision, tearing, double vision, ear pain, ear discharge, nose pain, nose congestion, throat pain, throat swelling, mouth pain, mouth swelling, other Cardiovascular: Denies: no symptoms, chest pain, edema, irregular heart rate, lightheadedness, palpitations, syncope, other Respiratory: Denies: no symptoms, cough, shortness of breath, SOB with excertion, SOB at rest, sputum, wheezing, other Gastrointestinal/Abdominal: Denies: no symptoms, abdomen distended, abdominal pain, black stools, tarry stools, blood in stool, constipated, diarrhea, difficulty swallowing, nausea, poor appetite, poor fluid intake, rectal bleeding , vomiting, other Genitourinary: Denies: no symptoms, burning, discharge, frequency, flank pain, hematuria, incontinence, pain, urgency, other Neurologic/Psychiatric: Denies: no symptoms, anxiety, depressed, emotional problems, headache, numbness, paresthesia, pre-existing deficit, seizure, tingling, tremors, weakness, other Endocrine: Denies: no symptoms, excessive sweating, flushing, intolerance to cold, intolerance to heat, increased hunger, increased thirst, increased urine, unexplained weight gain, unexplained weight loss, other Allergies: Coded Allergies: LITHIUM (Verified Allergy, Unknown, 02/07/19) Subjective 12/12 labs are reviewed, intubated, with og, somewhat responsive, dw rn 12/13 labs noted, hgb 7.8, tfs ok to start per gi Objective Objective Current Medications Medications (Trade) Dose Ordered Sig/Angie Route PRN Reason Start Time Stop Time Status Last Admin Dose Admin Acetaminophen (Tylenol) 650 mg Q6H PRN ORAL Mild Pain (Pain Scale 1-3) 12/12/19 12:30 01/11/20 12:29 Acetaminophen (Tylenol) 1,000 mg Q6H PRN ORAL MODERATE PAIN 12/12/19 12:30 01/11/20 12:29 Amantadine HCl (Symmetrel) 100 mg TWICE A DAY ORAL 12/12/19 18:00 01/11/20 08:59 12/14/19 08:47 Aspirin (Ecotrin) 325 mg DAILY ORAL 12/13/19 09:00 01/26/20 08:59 12/14/19 08:47 Atorvastatin Calcium (Lipitor) 10 mg BEDTIME ORAL 12/12/19 21:00 03/11/20 20:59 12/13/19 20:21 Calcium Carbonate (Os-Octavio) 1,250 mg THREE TIMES A DAY ORAL 12/12/19 13:00 03/11/20 09:59 12/14/19 08:48 Cefepime HCl 1 gm/ Dextrose 55 ml @ 110 mls/hr Q24H IVPB 12/12/19 16:00 12/19/19 15:59 12/13/19 16:30 Clonidine HCl (Catapres Tab) 0.1 mg Q6H PRN ORAL For high BP over 160 systolic 12/12/19 12:31 03/11/20 12:30 Dextrose (Dextrose 50%) 25 ml Q30M PRN IV Hypoglycemia 12/13/19 07:15 03/12/20 07:14 Dextrose (Dextrose 50%) 50 ml Q30M PRN IV Hypoglycemia 12/13/19 07:15 03/12/20 07:14 Divalproex Sodium (Depakote Sprinkles) 250 mg EVERY 12 HOURS NG 12/13/19 21:00 01/12/20 20:59 12/14/19 08:47 Docusate Sodium (Colace) 100 mg TIAC ORAL 12/12/19 16:30 01/11/20 06:29 12/14/19 11:21 Furosemide (Lasix) 40 mg BID IV 12/12/19 18:00 01/11/20 08:59 12/14/19 09:36 Insulin Aspart (NovoLOG) EVERY 6 HOURS SUBQ 12/13/19 12:00 03/12/20 11:59 Levothyroxine Sodium (Synthroid) 75 mcg DAILY IV 12/13/19 09:00 01/11/20 09:29 12/14/19 09:35 Lorazepam (Ativan) 1 mg Q6H PRN ORAL For Anxiety 12/12/19 12:31 12/19/19 12:30 Nitroglycerin (Ntg) 0.4 mg Q5MIN X 3 DOSES PRN SL CHEST PAIN 12/12/19 12:00 01/10/20 21:44 Olanzapine (ZyPREXA) 5 mg BID ORAL 12/12/19 18:00 01/26/20 08:59 12/14/19 08:47 Pantoprazole (Protonix) 40 mg EVERY 12 HOURS IVP 12/14/19 09:00 01/13/20 08:59 12/14/19 08:47 Potassium Chloride 100 ml @ 100 mls/hr Q1H IVPB 12/14/19 09:30 12/14/19 12:29 12/14/19 11:20 Potassium Chloride (K-Dur) 40 meq TWICE A DAY NG 12/14/19 10:30 03/13/20 10:29 12/14/19 11:19 Propofol 100 ml @ 0 mls/hr Q24H IV 12/12/19 12:50 12/14/19 12:49 12/12/19 12:50 Sodium Chloride 1,000 ml @ 50 mls/hr Q20H IV 12/12/19 12:30 01/11/20 12:29 12/14/19 02:30 Last 24 Hour Vital Signs Date Time Temp Pulse Resp B/P (MAP) Pulse Ox O2 Delivery O2 Flow Rate FiO2 12/14/19 10:00 67 15 127/46 (73) 100 12/14/19 09:00 65 15 126/40 (68) 100 12/14/19 09:00 35 12/14/19 08:00 97.8 66 15 130/41 (70) 100 12/14/19 08:00 Endotracheal Tube 12/14/19 07:20 65 15 35 12/14/19 07:00 64 15 122/39 (66) 100 12/14/19 06:30 64 15 12/14/19 06:30 64 15 120/39 (66) 100 12/14/19 06:00 64 15 123/40 (67) 100 12/14/19 05:00 62 15 122/38 (66) 100 12/14/19 04:30 62 15 122/39 (66) 100 12/14/19 04:00 98.5 64 15 130/39 (69) 100 12/14/19 04:00 40 12/14/19 04:00 Endotracheal Tube 12/14/19 03:14 61 12/14/19 03:06 68 15 35 12/14/19 03:00 63 15 126/39 (68) 100 12/14/19 02:30 61 15 125/39 (67) 100 12/14/19 02:00 60 15 121/37 (65) 100 12/14/19 01:30 61 15 117/38 (64) 100 12/14/19 01:00 65 14 121/46 (71) 100 12/14/19 00:00 98.3 63 0 105/39 (61) 100 12/14/19 00:00 Endotracheal Tube 12/13/19 23:44 63 15 35 12/13/19 23:20 64 12/13/19 23:00 63 16 105/38 (60) 100 12/13/19 22:00 64 15 110/39 (62) 100 12/13/19 21:00 68 13 127/39 (68) 100 12/13/19 20:00 Endotracheal Tube 12/13/19 20:00 40 12/13/19 20:00 98.4 69 15 111/73 (86) 100 12/13/19 19:46 66 15 35 12/13/19 19:37 67 12/13/19 19:00 66 15 120/40 (66) 100 12/13/19 18:00 98.7 65 15 129/42 (71) 100 12/13/19 17:00 68 15 112/45 (67) 100 12/13/19 16:00 Endotracheal Tube 12/13/19 16:00 40 12/13/19 16:00 66 16 110/43 (65) 100 12/13/19 15:30 65 12/13/19 15:29 68 15 35 12/13/19 15:00 65 15 117/35 (62) 100 12/13/19 14:00 66 15 108/39 (62) 100 12/13/19 13:00 98.6 67 13 105/37 (59) 100 12/13/19 12:00 Endotracheal Tube 12/13/19 12:00 66 12/13/19 12:00 40 12/13/19 12:00 65 15 112/37 (62) 100 12/13/19 11:54 63 15 40 12/13/19 11:00 64 15 111/32 (58) 100 12/13/19 10:00 66 15 108/33 (58) 100 12/13/19 10:00 64 17 114/37 (62) 100 12/13/19 09:00 64 17 114/37 (62) 100 12/13/19 08:01 71 12/13/19 08:00 Endotracheal Tube 12/13/19 08:00 40 12/13/19 08:00 99.1 67 15 114/38 (63) 100 12/13/19 07:45 63 15 40 12/13/19 07:00 64 15 116/36 (62) 100 12/13/19 06:45 65 15 121/37 (65) 100 12/13/19 06:30 66 15 12/13/19 06:30 64 15 116/37 (63) 100 12/13/19 06:15 64 15 118/37 (64) 100 12/13/19 06:00 63 15 113/39 (63) 100 12/13/19 05:45 62 15 105/37 (59) 100 12/13/19 05:30 63 15 112/37 (62) 100 12/13/19 05:15 65 15 118/34 (62) 100 12/13/19 05:00 65 15 118/37 (64) 100 12/13/19 04:45 64 15 117/45 (69) 100 12/13/19 04:30 64 15 119/43 (68) 100 12/13/19 04:15 61 15 108/45 (66) 100 12/13/19 04:00 98.0 61 15 124/39 (67) 100 12/13/19 04:00 40 12/13/19 04:00 Endotracheal Tube 12/13/19 03:45 62 15 126/44 (71) 100 12/13/19 03:30 63 15 124/42 (69) 100 12/13/19 03:24 60 12/13/19 03:09 62 15 40 12/13/19 03:00 60 15 116/42 (66) 100 12/13/19 02:45 62 15 105/36 (59) 100 12/13/19 02:30 65 15 108/37 (60) 100 12/13/19 02:15 62 15 105/37 (59) 100 12/13/19 02:00 62 15 114/37 (62) 100 12/13/19 01:45 63 15 115/38 (63) 100 12/13/19 01:30 62 15 109/38 (61) 100 12/13/19 01:00 64 15 114/47 (69) 100 12/13/19 00:00 Endotracheal Tube 12/13/19 00:00 98.4 66 9 107/39 (61) 100 12/12/19 23:45 65 12 109/36 (60) 100 12/12/19 23:30 65 10 102/34 (56) 100 12/12/19 23:15 65 15 107/32 (57) 100 12/12/19 23:11 64 12/12/19 23:10 64 15 40 12/12/19 23:00 68 17 116/37 (63) 100 12/12/19 22:45 68 15 113/41 (65) 100 12/12/19 22:30 66 16 108/39 (62) 100 12/12/19 22:15 66 15 112/41 (64) 100 12/12/19 22:00 67 16 117/44 (68) 100 12/12/19 21:45 67 16 111/44 (66) 100 12/12/19 21:30 67 16 114/33 (60) 100 12/12/19 21:00 68 16 114/33 (60) 100 12/12/19 20:15 66 16 109/30 (56) 100 12/12/19 20:00 Endotracheal Tube 12/12/19 20:00 40 12/12/19 20:00 98.1 69 16 107/30 (55) 100 12/12/19 19:32 66 12/12/19 19:30 66 16 113/33 (59) 100 12/12/19 19:15 65 16 105/44 (64) 100 12/12/19 19:10 66 15 40 12/12/19 19:00 15 96/38 Mechanical Ventilator 40 12/12/19 19:00 60 16 96/38 (57) 100 12/12/19 18:00 16 97/32 Endotracheal Tube 40 12/12/19 17:00 15 111/41 Endotracheal Tube 40 12/12/19 16:30 67 16 103/33 (56) 100 12/12/19 16:15 67 16 100/34 (56) 99 12/12/19 16:00 98.8 68 15 102/30 (54) 100 12/12/19 16:00 15 102/30 Endotracheal Tube 50 12/12/19 16:00 Endotracheal Tube 12/12/19 15:19 68 12/12/19 15:00 67 18 105/35 (58) 100 12/12/19 15:00 18 105/35 Endotracheal Tube 50 12/12/19 14:43 71 15 40 12/12/19 14:05 70 19 104/35 (58) 93 12/12/19 14:00 20 104/35 Endotracheal Tube 50 12/12/19 14:00 69 20 104/35 (58) 100 12/12/19 13:55 69 19 104/35 (58) 98 12/12/19 13:40 68 18 105/38 (60) 93 12/12/19 13:25 67 22 103/37 (59) 98 12/12/19 13:05 67 21 110/30 (56) 99 12/12/19 13:00 67 18 116/35 (62) 99 12/12/19 13:00 18 116/53 Endotracheal Tube 50 12/12/19 12:50 15 106/36 Endotracheal Tube 100 12/12/19 12:47 50 12/12/19 12:44 15 106/36 50 7/1/20 12:28 50 12/12/19 12:01 65 20 100 12/12/19 12:00 98.9 65 20 105/33 (57) 100 12/12/19 12:00 67 12/12/19 11:45 Endotracheal Tube Intake and Output 12/13/19 12/14/19 19:00 07:00 Intake Total 1155 ml 695 ml Output Total 1530 ml 1635 ml Balance -375 ml -940 ml Intake IV Total 1055 ml 575 ml Other 100 ml 120 ml Output Urine Total 1530 ml 1635 ml Labs Test 12/11/19 13:43 12/11/19 14:10 12/12/19 03:30 12/12/19 07:43 Arterial Blood pH 7.340 (7.350-7.450) 7.163 (7.350-7.450) Arterial Blood Partial Pressure CO2 54.3 mmHg (35.0-45.0) 93.3 mmHg (35.0-45.0) Arterial Blood Partial Pressure O2 130.3 mmHg (75.0-100.0) 181.0 mmHg (75.0-100.0) Arterial Blood HCO3 28.6 mmol/L (22.0-26.0) 32.7 mmol/L (22.0-26.0) Arterial Blood Oxygen Saturation 98.1 % (95-100) 98.7 % (95-100) Arterial Blood Base Excess 98.1 (-2-2) 1.6 (-2-2) Raphael Test Positive Positive White Blood Count 4.9 K/UL (4.8-10.8) 6.5 K/UL (4.8-10.8) Red Blood Count 3.73 M/UL (4.20-5.40) 3.61 M/UL (4.20-5.40) Hemoglobin 12.3 G/DL (12.0-16.0) 11.9 G/DL (12.0-16.0) Hematocrit 37.6 % (37.0-47.0) 37.3 % (37.0-47.0) Mean Corpuscular Volume 101 FL (80-99) 103 FL (80-99) Mean Corpuscular Hemoglobin 33.1 PG (27.0-31.0) 32.9 PG (27.0-31.0) Mean Corpuscular Hemoglobin Concent 32.9 G/DL (32.0-36.0) 31.9 G/DL (32.0-36.0) Red Cell Distribution Width 13.1 % (11.6-14.8) 13.7 % (11.6-14.8) Platelet Count 237 K/UL (150-450) 238 K/UL (150-450) Mean Platelet Volume 7.3 FL (6.5-10.1) 7.1 FL (6.5-10.1) Neutrophils (%) (Auto) 68.1 % (45.0-75.0) 83.4 % (45.0-75.0) Lymphocytes (%) (Auto) 22.1 % (20.0-45.0) 11.3 % (20.0-45.0) Monocytes (%) (Auto) 8.6 % (1.0-10.0) 4.8 % (1.0-10.0) Eosinophils (%) (Auto) 0.2 % (0.0-3.0) 0.0 % (0.0-3.0) Basophils (%) (Auto) 1.0 % (0.0-2.0) 0.5 % (0.0-2.0) Prothrombin Time 12.2 SEC (9.30-11.50) Prothromb Time International Ratio 1.1 (0.9-1.1) Activated Partial Thromboplast Time 31 SEC (23-33) D-Dimer 2.04 mg/L FEU (0.00-0.49) Urine Color Pale yellow Urine Appearance Clear Urine pH 5 (4.5-8.0) Urine Specific [place] 1.015 (1.005-1.035) Urine Protein 3+ (NEGATIVE) Urine Glucose (UA) Negative (NEGATIVE) Urine Ketones Negative (NEGATIVE) Urine Blood 1+ (NEGATIVE) Urine Nitrite Negative (NEGATIVE) Urine Bilirubin Negative (NEGATIVE) Urine Urobilinogen Normal MG/DL (0.0-1.0) Urine Leukocyte Esterase 1+ (NEGATIVE) Urine RBC 0-2 /HPF (0 - 2) Urine WBC 0-2 /HPF (0 - 2) Urine Squamous Epithelial Cells Few /LPF (NONE/OCC) Urine Bacteria Few /HPF (NONE) Sodium Level 130 MMOL/L (136-145) 133 MMOL/L (136-145) Potassium Level 4.4 MMOL/L (3.5-5.1) 4.2 MMOL/L (3.5-5.1) Chloride Level 92 MMOL/L (98-107) 95 MMOL/L (98-107) Carbon Dioxide Level 30 MMOL/L (21-32) 32 MMOL/L (21-32) Anion Gap 8 mmol/L (5-15) 6 mmol/L (5-15) Blood Urea Nitrogen 25 mg/dL (7-18) 32 mg/dL (7-18) Creatinine 1.0 MG/DL (0.55-1.30) 1.2 MG/DL (0.55-1.30) Estimat Glomerular Filtration Rate 53.3 mL/min (>60) 43.3 mL/min (>60) Glucose Level 102 MG/DL (74-106) 106 MG/DL (74-106) Lactic Acid Level 1.10 mmol/L (0.4-2.0) Calcium Level 8.6 MG/DL (8.5-10.1) 7.9 MG/DL (8.5-10.1) Magnesium Level 2.3 MG/DL (1.8-2.4) 2.2 MG/DL (1.8-2.4) Ferritin 57 NG/ML (8-388) Total Bilirubin 1.0 MG/DL (0.2-1.0) 0.6 MG/DL (0.2-1.0) Aspartate Amino Transf (AST/SGOT) 139 U/L (15-37) 91 U/L (15-37) Alanine Aminotransferase (ALT/SGPT) 215 U/L (12-78) 184 U/L (12-78) Alkaline Phosphatase 68 U/L (46-116) 64 U/L (46-116) Lactate Dehydrogenase 685 U/L (81-234) Troponin I 0.056 ng/mL (0.000-0.056) 0.050 ng/mL (0.000-0.056) C-Reactive Protein, Quantitative < 0.4 mg/dL (0.00-0.90) 0.5 mg/dL (0.00-0.90) Pro-B-Type Natriuretic Peptide 88224 pg/mL (0-125) 81957 pg/mL (0-125) Total Protein 7.7 G/DL (6.4-8.2) 7.1 G/DL (6.4-8.2) Albumin 4.6 G/DL (3.4-5.0) 4.1 G/DL (3.4-5.0) Globulin 3.1 g/dL 3.0 g/dL Albumin/Globulin Ratio 1.5 (1.0-2.7) 1.4 (1.0-2.7) Valproic Acid (Depakene) Level 3 MCG/ML (50-100) Hemoglobin A1c 6.4 % (4.3-6.0) Uric Acid 7.6 MG/DL (2.6-7.2) Phosphorus Level 5.6 MG/DL (2.5-4.9) Gamma Glutamyl Transpeptidase 31 U/L (5-85) Triglycerides Level 111 MG/DL (30-150) Cholesterol Level 238 MG/DL (< 200) LDL Cholesterol 151 mg/dL (<100) HDL Cholesterol 59 MG/DL (40-60) Cholesterol/HDL Ratio 4.0 (3.3-4.4) Vitamin B12 Level 755 PG/ML (193-986) Folate 18.5 NG/ML (8.6-58.9) Thyroid Stimulating Hormone (TSH) 21.992 uiU/mL (0.358-3.740) Test 12/12/19 08:01 12/12/19 12:05 12/13/19 03:40 12/13/19 08:26 Arterial Blood pH 7.500 (7.350-7.450) 7.467 (7.350-7.450) Arterial Blood Partial Pressure CO2 39.3 mmHg (35.0-45.0) 41.5 mmHg (35.0-45.0) Arterial Blood Partial Pressure O2 466.3 mmHg (75.0-100.0) 85.2 mmHg (75.0-100.0) Arterial Blood HCO3 30.0 mmol/L (22.0-26.0) 29.5 mmol/L (22.0-26.0) Arterial Blood Oxygen Saturation 99.5 % (95-100) 96.1 % (95-100) Arterial Blood Base Excess 6.4 (-2-2) 5.3 (-2-2) Raphael Test Positive Positive White Blood Count 6.2 K/UL (4.8-10.8) Red Blood Count 3.32 M/UL (4.20-5.40) Hemoglobin 10.8 G/DL (12.0-16.0) Hematocrit 33.2 % (37.0-47.0) Mean Corpuscular Volume 100 FL (80-99) Mean Corpuscular Hemoglobin 32.6 PG (27.0-31.0) Mean Corpuscular Hemoglobin Concent 32.5 G/DL (32.0-36.0) Red Cell Distribution Width 12.8 % (11.6-14.8) Platelet Count 189 K/UL (150-450) Mean Platelet Volume 6.9 FL (6.5-10.1) Neutrophils (%) (Auto) 74.0 % (45.0-75.0) Lymphocytes (%) (Auto) 16.2 % (20.0-45.0) Monocytes (%) (Auto) 9.3 % (1.0-10.0) Eosinophils (%) (Auto) 0.3 % (0.0-3.0) Basophils (%) (Auto) 0.3 % (0.0-2.0) Sodium Level 137 MMOL/L (136-145) Potassium Level 3.0 MMOL/L (3.5-5.1) Chloride Level 96 MMOL/L (98-107) Carbon Dioxide Level 33 MMOL/L (21-32) Anion Gap 8 mmol/L (5-15) Blood Urea Nitrogen 30 mg/dL (7-18) Creatinine 1.5 MG/DL (0.55-1.30) Estimat Glomerular Filtration Rate 33.4 mL/min (>60) Glucose Level 80 MG/DL (74-106) Uric Acid 8.8 MG/DL (2.6-7.2) Calcium Level 7.9 MG/DL (8.5-10.1) Phosphorus Level 2.2 MG/DL (2.5-4.9) Magnesium Level 1.9 MG/DL (1.8-2.4) Total Bilirubin 0.8 MG/DL (0.2-1.0) Aspartate Amino Transf (AST/SGOT) 61 U/L (15-37) Alanine Aminotransferase (ALT/SGPT) 138 U/L (12-78) Alkaline Phosphatase 54 U/L (46-116) Troponin I 0.072 ng/mL (0.000-0.056) C-Reactive Protein, Quantitative 1.0 mg/dL (0.00-0.90) Pro-B-Type Natriuretic Peptide 6795 pg/mL (0-125) Total Protein 6.0 G/DL (6.4-8.2) Albumin 3.5 G/DL (3.4-5.0) Globulin 2.5 g/dL Albumin/Globulin Ratio 1.4 (1.0-2.7) Test 12/13/19 11:46 12/14/19 04:15 White Blood Count 5.2 K/UL (4.8-10.8) Red Blood Count 3.53 M/UL (4.20-5.40) Hemoglobin 11.4 G/DL (12.0-16.0) Hematocrit 35.5 % (37.0-47.0) Mean Corpuscular Volume 101 FL (80-99) Mean Corpuscular Hemoglobin 32.4 PG (27.0-31.0) Mean Corpuscular Hemoglobin Concent 32.1 G/DL (32.0-36.0) Red Cell Distribution Width 13.0 % (11.6-14.8) Platelet Count 186 K/UL (150-450) Mean Platelet Volume 6.8 FL (6.5-10.1) Neutrophils (%) (Auto) 71.2 % (45.0-75.0) Lymphocytes (%) (Auto) 19.8 % (20.0-45.0) Monocytes (%) (Auto) 7.4 % (1.0-10.0) Eosinophils (%) (Auto) 1.2 % (0.0-3.0) Basophils (%) (Auto) 0.5 % (0.0-2.0) Sodium Level 136 MMOL/L (136-145) Potassium Level 2.6 MMOL/L (3.5-5.1) Chloride Level 95 MMOL/L (98-107) Carbon Dioxide Level 33 MMOL/L (21-32) Anion Gap 8 mmol/L (5-15) Blood Urea Nitrogen 26 mg/dL (7-18) Creatinine 1.3 MG/DL (0.55-1.30) Estimat Glomerular Filtration Rate 39.4 mL/min (>60) Glucose Level 66 MG/DL (74-106) Calcium Level 7.6 MG/DL (8.5-10.1) Phosphorus Level 2.0 MG/DL (2.5-4.9) Magnesium Level 1.7 MG/DL (1.8-2.4) Total Bilirubin 1.1 MG/DL (0.2-1.0) Direct Bilirubin 0.2 MG/DL (0.0-0.3) Aspartate Amino Transf (AST/SGOT) 49 U/L (15-37) Alanine Aminotransferase (ALT/SGPT) 112 U/L (12-78) Alkaline Phosphatase 56 U/L (46-116) C-Reactive Protein, Quantitative 5.5 mg/dL (0.00-0.90) Pro-B-Type Natriuretic Peptide 2250 pg/mL (0-125) Total Protein 6.2 G/DL (6.4-8.2) Albumin 3.4 G/DL (3.4-5.0) Globulin 2.8 g/dL Albumin/Globulin Ratio 1.2 (1.0-2.7) Height (Feet): 5 Height (Inches): 7.00 Weight (Pounds): 210 Objective Vitals: reviewed General: NAD HEENT: nc, at ++ogt Neck: supple ++intubated Chest: decreased breath sounds bilaterally Cardiovascular: RRR, no s3, s4 Abdomen: soft, nontender, nd Extremities: 1-2 + edema Neuro: nonverbal Frank Escobar MD Dec 14, 2019 11:36
--- NOTE | 2019-12-14 11:41 | Pulmonology Progress Note ---
Subjective ROS Limited/Unobtainable: Yes Interval Events: Remains intubated Constitutional: Denies: fever HEENT: Repors: no symptoms Respiratory: Reports: no symptoms Cardiovascular: Reports: no symptoms Gastrointestinal/Abdominal: Reports: no symptoms Genitourinary: Reports: no symptoms Allergies: Coded Allergies: LITHIUM (Verified Allergy, Unknown, 02/07/19) Objective Last 24 Hour Vital Signs Date Time Temp Pulse Resp B/P (MAP) Pulse Ox O2 Delivery O2 Flow Rate FiO2 12/14/19 10:00 67 15 127/46 (73) 100 12/14/19 09:00 65 15 126/40 (68) 100 12/14/19 09:00 35 12/14/19 08:00 97.8 66 15 130/41 (70) 100 12/14/19 08:00 Endotracheal Tube 12/14/19 07:20 65 15 35 12/14/19 07:00 64 15 122/39 (66) 100 12/14/19 06:30 64 15 12/14/19 06:30 64 15 120/39 (66) 100 12/14/19 06:00 64 15 123/40 (67) 100 12/14/19 05:00 62 15 122/38 (66) 100 12/14/19 04:30 62 15 122/39 (66) 100 12/14/19 04:00 98.5 64 15 130/39 (69) 100 12/14/19 04:00 40 12/14/19 04:00 Endotracheal Tube 12/14/19 03:14 61 12/14/19 03:06 68 15 35 12/14/19 03:00 63 15 126/39 (68) 100 12/14/19 02:30 61 15 125/39 (67) 100 12/14/19 02:00 60 15 121/37 (65) 100 12/14/19 01:30 61 15 117/38 (64) 100 12/14/19 01:00 65 14 121/46 (71) 100 12/14/19 00:00 98.3 63 0 105/39 (61) 100 12/14/19 00:00 Endotracheal Tube 12/13/19 23:44 63 15 35 12/13/19 23:20 64 12/13/19 23:00 63 16 105/38 (60) 100 12/13/19 22:00 64 15 110/39 (62) 100 12/13/19 21:00 68 13 127/39 (68) 100 12/13/19 20:00 Endotracheal Tube 12/13/19 20:00 40 12/13/19 20:00 98.4 69 15 111/73 (86) 100 12/13/19 19:46 66 15 35 12/13/19 19:37 67 12/13/19 19:00 66 15 120/40 (66) 100 12/13/19 18:00 98.7 65 15 129/42 (71) 100 12/13/19 17:00 68 15 112/45 (67) 100 12/13/19 16:00 Endotracheal Tube 12/13/19 16:00 40 12/13/19 16:00 66 16 110/43 (65) 100 12/13/19 15:30 65 12/13/19 15:29 68 15 35 12/13/19 15:00 65 15 117/35 (62) 100 12/13/19 14:00 66 15 108/39 (62) 100 12/13/19 13:00 98.6 67 13 105/37 (59) 100 12/13/19 12:00 Endotracheal Tube 12/13/19 12:00 66 12/13/19 12:00 40 12/13/19 12:00 65 15 112/37 (62) 100 12/13/19 11:54 63 15 40 Intake and Output 12/13/19 12/14/19 19:00 07:00 Intake Total 1155 ml 695 ml Output Total 1530 ml 1635 ml Balance -375 ml -940 ml Intake IV Total 1055 ml 575 ml Other 100 ml 120 ml Output Urine Total 1530 ml 1635 ml General Appearance: no acute distress Respiratory: chest wall non-tender, lungs clear Cardiovascular: normal peripheral pulses, normal rate Abdomen: normal bowel sounds Microbiology Date/Time Source Procedure Growth Status 12/11/19 14:00 Blood Blood Culture - Preliminary NO GROWTH AFTER 48 HOURS Resulted 12/11/19 13:40 Blood Blood Culture - Preliminary NO GROWTH AFTER 48 HOURS Resulted 12/12/19 16:40 Sputum Gram Stain - Final Complete 12/12/19 16:40 Sputum Sputum Culture - Final NORMAL UPPER RESPIRATORY CHAIM PRESENT Complete 12/11/19 18:00 Nasal Nares MRSA Culture - Final Staphylococcus Aureus - Mrsa Complete 12/11/19 14:15 Nasopharynx Coronavirus COVID-19 PCR (JAYME) - Final Complete 12/11/19 18:00 Rectum - Final NO CARBAPENEM-RESISTANT ENTEROBACTERI... Complete 12/11/19 18:00 Rectum VRE Culture - Final NO VANCOMYCIN RESISTANT ENTEROCOCCUS ... Complete Laboratory Tests 12/13/19 11:46: POC Whole Blood Glucose [Pending] 12/14/19 04:15: White Blood Count 5.2, Red Blood Count 3.53L, Hemoglobin 11.4L, Hematocrit 35.5L , Mean Corpuscular Volume 101H, Mean Corpuscular Hemoglobin 32.4H, Mean Corpuscular Hemoglobin Concent 32.1, Red Cell Distribution Width 13.0, Platelet Count 186, Mean Platelet Volume 6.8, Neutrophils (%) (Auto) 71.2, Lymphocytes (% ) (Auto) 19.8L, Monocytes (%) (Auto) 7.4, Eosinophils (%) (Auto) 1.2, Basophils (%) (Auto) 0.5, Sodium Level 136, Potassium Level 2.6*L, Chloride Level 95L, Carbon Dioxide Level 33H, Anion Gap 8, Blood Urea Nitrogen 26H, Creatinine 1.3, Estimat Glomerular Filtration Rate 39.4, Glucose Level 66L, Calcium Level 7.6L, Phosphorus Level 2.0L, Magnesium Level 1.7L, Total Bilirubin 1.1H, Direct Bilirubin 0.2, Aspartate Amino Transf (AST/SGOT) 49H, Alanine Aminotransferase ( ALT/SGPT) 112H, Alkaline Phosphatase 56, C-Reactive Protein, Quantitative 5.5H, Pro-B-Type Natriuretic Peptide 2250H, Total Protein 6.2L, Albumin 3.4, Globulin 2.8, Albumin/Globulin Ratio 1.2 Current Medications Medications (Trade) Dose Ordered Sig/Angie Route PRN Reason Start Time Stop Time Status Last Admin Dose Admin Acetaminophen (Tylenol) 650 mg Q6H PRN ORAL Mild Pain (Pain Scale 1-3) 12/12/19 12:30 01/11/20 12:29 Acetaminophen (Tylenol) 1,000 mg Q6H PRN ORAL MODERATE PAIN 12/12/19 12:30 01/11/20 12:29 Amantadine HCl (Symmetrel) 100 mg TWICE A DAY ORAL 12/12/19 18:00 01/11/20 08:59 12/14/19 08:47 Aspirin (Ecotrin) 325 mg DAILY ORAL 12/13/19 09:00 01/26/20 08:59 12/14/19 08:47 Atorvastatin Calcium (Lipitor) 10 mg BEDTIME ORAL 12/12/19 21:00 03/11/20 20:59 12/13/19 20:21 Calcium Carbonate (Os-Octavio) 1,250 mg THREE TIMES A DAY ORAL 12/12/19 13:00 03/11/20 09:59 12/14/19 08:48 Cefepime HCl 1 gm/ Dextrose 55 ml @ 110 mls/hr Q24H IVPB 12/12/19 16:00 12/19/19 15:59 12/13/19 16:30 Clonidine HCl (Catapres Tab) 0.1 mg Q6H PRN ORAL For high BP over 160 systolic 12/12/19 12:31 03/11/20 12:30 Dextrose (Dextrose 50%) 25 ml Q30M PRN IV Hypoglycemia 12/13/19 07:15 03/12/20 07:14 Dextrose (Dextrose 50%) 50 ml Q30M PRN IV Hypoglycemia 12/13/19 07:15 03/12/20 07:14 Divalproex Sodium (Depakote Sprinkles) 250 mg EVERY 12 HOURS NG 12/13/19 21:00 01/12/20 20:59 12/14/19 08:47 Docusate Sodium (Colace) 100 mg TIAC ORAL 12/12/19 16:30 01/11/20 06:29 12/14/19 11:21 Furosemide (Lasix) 40 mg BID IV 12/12/19 18:00 01/11/20 08:59 12/14/19 09:36 Insulin Aspart (NovoLOG) EVERY 6 HOURS SUBQ 12/13/19 12:00 03/12/20 11:59 Levothyroxine Sodium (Synthroid) 75 mcg DAILY IV 12/13/19 09:00 01/11/20 09:29 12/14/19 09:35 Lorazepam (Ativan) 1 mg Q6H PRN ORAL For Anxiety 12/12/19 12:31 12/19/19 12:30 Nitroglycerin (Ntg) 0.4 mg Q5MIN X 3 DOSES PRN SL CHEST PAIN 12/12/19 12:00 01/10/20 21:44 Olanzapine (ZyPREXA) 5 mg BID ORAL 12/12/19 18:00 01/26/20 08:59 12/14/19 08:47 Pantoprazole (Protonix) 40 mg EVERY 12 HOURS IVP 12/14/19 09:00 01/13/20 08:59 12/14/19 08:47 Potassium Chloride 100 ml @ 100 mls/hr Q1H IVPB 12/14/19 09:30 12/14/19 12:29 12/14/19 11:20 Potassium Chloride (K-Dur) 40 meq TWICE A DAY NG 12/14/19 10:30 03/13/20 10:29 12/14/19 11:19 Propofol 100 ml @ 0 mls/hr Q24H IV 12/12/19 12:50 12/14/19 12:49 12/12/19 12:50 Sodium Chloride 1,000 ml @ 50 mls/hr Q20H IV 12/12/19 12:30 01/11/20 12:29 12/14/19 02:30 Assessment/Plan Assessment/Plan IMPRESSION: 1. Respiratory failure. 2. Rule out healthcare-associated pneumonia versus COVID-19. 3. Psych disorder. 4. Obesity. 5. Hypertension. DISCUSSION: Continue broad spectrum antibiotics. On propofol. I will manage respirator, currently on AC mode 50% FiO2 and PEEP of 5. Has negative COVID-19 swab. I will follow carefully. Emerita Fan Omar Syed MD Dec 14, 2019 11:41
--- NOTE | 2019-12-14 12:30 | NUR ---
NURSE NOTES: Dr Davies present in the unit, updated on patient's condition; no new verbal orders received. Will continue to monitor.
--- NOTE | 2019-12-14 12:44 | Cardiac Electrophysiology PN ---
Assessment/Plan Assessment/Plan 1. Respiratory failure with BNP of more than 19,000. Echo showed normal ejection fraction. Continue Lasix. 2. 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 TSH is still elevated. 3. Respiratory failure. Patient is intubated on the vent on steroids and antibiotic 4. History of Parkinson disease. 5. Hyperlipidemia. YOSELYN RN Subjective Subjective Intubated on the vent off pressors.In SR.Being weaned off the vent. Objective Last 24 Hour Vital Signs Date Time Temp Pulse Resp B/P (MAP) Pulse Ox O2 Delivery O2 Flow Rate FiO2 12/14/19 11:20 71 15 35 12/14/19 11:00 67 15 124/43 (70) 100 12/14/19 10:00 67 15 127/46 (73) 100 12/14/19 09:00 65 15 126/40 (68) 100 12/14/19 09:00 35 12/14/19 08:00 66 12/14/19 08:00 97.8 66 15 130/41 (70) 100 12/14/19 08:00 Endotracheal Tube 12/14/19 07:20 65 15 35 12/14/19 07:00 64 15 122/39 (66) 100 12/14/19 06:30 64 15 12/14/19 06:30 64 15 120/39 (66) 100 12/14/19 06:00 64 15 123/40 (67) 100 12/14/19 05:00 62 15 122/38 (66) 100 12/14/19 04:30 62 15 122/39 (66) 100 12/14/19 04:00 98.5 64 15 130/39 (69) 100 12/14/19 04:00 40 12/14/19 04:00 Endotracheal Tube 12/14/19 03:14 61 12/14/19 03:06 68 15 35 12/14/19 03:00 63 15 126/39 (68) 100 12/14/19 02:30 61 15 125/39 (67) 100 12/14/19 02:00 60 15 121/37 (65) 100 12/14/19 01:30 61 15 117/38 (64) 100 12/14/19 01:00 65 14 121/46 (71) 100 12/14/19 00:00 98.3 63 0 105/39 (61) 100 12/14/19 00:00 Endotracheal Tube 12/13/19 23:44 63 15 35 12/13/19 23:20 64 12/13/19 23:00 63 16 105/38 (60) 100 12/13/19 22:00 64 15 110/39 (62) 100 12/13/19 21:00 68 13 127/39 (68) 100 12/13/19 20:00 Endotracheal Tube 12/13/19 20:00 40 12/13/19 20:00 98.4 69 15 111/73 (86) 100 12/13/19 19:46 66 15 35 12/13/19 19:37 67 12/13/19 19:00 66 15 120/40 (66) 100 12/13/19 18:00 98.7 65 15 129/42 (71) 100 12/13/19 17:00 68 15 112/45 (67) 100 12/13/19 16:00 Endotracheal Tube 12/13/19 16:00 40 12/13/19 16:00 66 16 110/43 (65) 100 12/13/19 15:30 65 12/13/19 15:29 68 15 35 12/13/19 15:00 65 15 117/35 (62) 100 12/13/19 14:00 66 15 108/39 (62) 100 12/13/19 13:00 98.6 67 13 105/37 (59) 100 Intake and Output 12/13/19 12/14/19 19:00 07:00 Intake Total 1155 ml 695 ml Output Total 1530 ml 1635 ml Balance -375 ml -940 ml Intake IV Total 1055 ml 575 ml Other 100 ml 120 ml Output Urine Total 1530 ml 1635 ml Laboratory Tests Test 12/14/19 04:15 White Blood Count 5.2 K/UL (4.8-10.8) Red Blood Count 3.53 M/UL (4.20-5.40) L Hemoglobin 11.4 G/DL (12.0-16.0) L Hematocrit 35.5 % (37.0-47.0) L Mean Corpuscular Volume 101 FL (80-99) H Mean Corpuscular Hemoglobin 32.4 PG (27.0-31.0) H Mean Corpuscular Hemoglobin Concent 32.1 G/DL (32.0-36.0) Red Cell Distribution Width 13.0 % (11.6-14.8) Platelet Count 186 K/UL (150-450) Mean Platelet Volume 6.8 FL (6.5-10.1) Neutrophils (%) (Auto) 71.2 % (45.0-75.0) Lymphocytes (%) (Auto) 19.8 % (20.0-45.0) L Monocytes (%) (Auto) 7.4 % (1.0-10.0) Eosinophils (%) (Auto) 1.2 % (0.0-3.0) Basophils (%) (Auto) 0.5 % (0.0-2.0) Sodium Level 136 MMOL/L (136-145) Potassium Level 2.6 MMOL/L (3.5-5.1) *L Chloride Level 95 MMOL/L (98-107) L Carbon Dioxide Level 33 MMOL/L (21-32) H Anion Gap 8 mmol/L (5-15) Blood Urea Nitrogen 26 mg/dL (7-18) H Creatinine 1.3 MG/DL (0.55-1.30) Estimat Glomerular Filtration Rate 39.4 mL/min (>60) Glucose Level 66 MG/DL (74-106) L Calcium Level 7.6 MG/DL (8.5-10.1) L Phosphorus Level 2.0 MG/DL (2.5-4.9) L Magnesium Level 1.7 MG/DL (1.8-2.4) L Total Bilirubin 1.1 MG/DL (0.2-1.0) H Direct Bilirubin 0.2 MG/DL (0.0-0.3) Aspartate Amino Transf (AST/SGOT) 49 U/L (15-37) H Alanine Aminotransferase (ALT/SGPT) 112 U/L (12-78) H Alkaline Phosphatase 56 U/L (46-116) C-Reactive Protein, Quantitative 5.5 mg/dL (0.00-0.90) H Pro-B-Type Natriuretic Peptide 2250 pg/mL (0-125) H Total Protein 6.2 G/DL (6.4-8.2) L Albumin 3.4 G/DL (3.4-5.0) Globulin 2.8 g/dL Albumin/Globulin Ratio 1.2 (1.0-2.7) Microbiology Date/Time Source Procedure Growth Status 12/11/19 14:00 Blood Blood Culture - Preliminary NO GROWTH AFTER 48 HOURS Resulted 12/11/19 13:40 Blood Blood Culture - Preliminary NO GROWTH AFTER 48 HOURS Resulted 12/12/19 16:40 Sputum Gram Stain - Final Complete 12/12/19 16:40 Sputum Sputum Culture - Final NORMAL UPPER RESPIRATORY CHAIM PRESENT Complete 12/11/19 18:00 Nasal Nares MRSA Culture - Final Staphylococcus Aureus - Mrsa Complete 12/11/19 14:15 Nasopharynx Coronavirus COVID-19 PCR (JAYME) - Final Complete 12/11/19 18:00 Rectum - Final NO CARBAPENEM-RESISTANT ENTEROBACTERI... Complete 12/11/19 18:00 Rectum VRE Culture - Final NO VANCOMYCIN RESISTANT ENTEROCOCCUS ... Complete Objective HEAD AND NECK: Shows she is orally intubated with no JVD. LUNGS: Coarse rhonchi. CARDIOVASCULAR: Shows regular S1 and S2 and tachycardic. ABDOMEN: Soft. EXTREMITIES: No pitting edema. Cameron Davies MD Dec 14, 2019 12:44
--- NOTE | 2019-12-14 12:51 | NUR ---
NURSE NOTES: Patient remains asleep, but arousable to tactile stimuli. Remains orally intubated, tolerating vent settings, no distress noted. Repositioned and oral care given, scheduled medications given. Patient remains clean and dry. Safety measures remains in place, will continue to monitor.
--- NOTE | 2019-12-14 13:48 | Nephrology Progress Note ---
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 Respiratory distress most likely secondary to pulmonary edema and or COPD exacerbation. Hyponatremia. Obese. Hypothyroidism. Elevated d-dimer. Elevated liver enzymes Plan December 13: Patient remains in ICU intubated on ventilator. Discussed with RN. Labs reviewed. Creatinine 1.3. Potassium supplements given. Mag sulfate IV 2 g given. Continue per consultants. December 12: Patient in ICU. Intubated on ventilator. Discussed with RN. Labs reviewed. Potassium supplement given. Continue per consultants. Arterial blood gas indicative of CO2 retention. Patient on the way to ICU for intubation. Continue per pulmonary management. Pulmonary support, Check 2D echocardiogram. Previous 2D echo had a 50% ejection fraction. Keep blood sugar and blood pressure in check. Thyroid panel. Monitor electrolytes and renal parameters. Afterload reduction. Diuretics Monitor serum calcium, supplements via NG tube. Per orders. Subjective ROS Limited/Unobtainable: Yes Objective Objective Last 24 Hour Vital Signs Date Time Temp Pulse Resp B/P (MAP) Pulse Ox O2 Delivery O2 Flow Rate FiO2 12/14/19 13:00 72 16 125/42 (69) 100 12/14/19 12:00 66 12/14/19 12:00 Endotracheal Tube 12/14/19 12:00 35 12/14/19 12:00 98.4 70 16 130/42 (71) 100 12/14/19 11:20 71 15 35 12/14/19 11:00 67 15 124/43 (70) 100 12/14/19 10:00 67 15 127/46 (73) 100 12/14/19 09:00 65 15 126/40 (68) 100 12/14/19 09:00 35 12/14/19 08:00 66 12/14/19 08:00 97.8 66 15 130/41 (70) 100 12/14/19 08:00 Endotracheal Tube 12/14/19 07:20 65 15 35 12/14/19 07:00 64 15 122/39 (66) 100 12/14/19 06:30 64 15 12/14/19 06:30 64 15 120/39 (66) 100 12/14/19 06:00 64 15 123/40 (67) 100 12/14/19 05:00 62 15 122/38 (66) 100 12/14/19 04:30 62 15 122/39 (66) 100 12/14/19 04:00 98.5 64 15 130/39 (69) 100 12/14/19 04:00 40 12/14/19 04:00 Endotracheal Tube 12/14/19 03:14 61 12/14/19 03:06 68 15 35 12/14/19 03:00 63 15 126/39 (68) 100 12/14/19 02:30 61 15 125/39 (67) 100 12/14/19 02:00 60 15 121/37 (65) 100 12/14/19 01:30 61 15 117/38 (64) 100 12/14/19 01:00 65 14 121/46 (71) 100 12/14/19 00:00 98.3 63 0 105/39 (61) 100 12/14/19 00:00 Endotracheal Tube 12/13/19 23:44 63 15 35 12/13/19 23:20 64 12/13/19 23:00 63 16 105/38 (60) 100 12/13/19 22:00 64 15 110/39 (62) 100 12/13/19 21:00 68 13 127/39 (68) 100 12/13/19 20:00 Endotracheal Tube 12/13/19 20:00 40 12/13/19 20:00 98.4 69 15 111/73 (86) 100 12/13/19 19:46 66 15 35 12/13/19 19:37 67 12/13/19 19:00 66 15 120/40 (66) 100 12/13/19 18:00 98.7 65 15 129/42 (71) 100 12/13/19 17:00 68 15 112/45 (67) 100 12/13/19 16:00 Endotracheal Tube 12/13/19 16:00 40 12/13/19 16:00 66 16 110/43 (65) 100 12/13/19 15:30 65 12/13/19 15:29 68 15 35 12/13/19 15:00 65 15 117/35 (62) 100 12/13/19 14:00 66 15 108/39 (62) 100 Intake and Output 12/13/19 12/14/19 19:00 07:00 Intake Total 1155 ml 695 ml Output Total 1530 ml 1635 ml Balance -375 ml -940 ml Intake IV Total 1055 ml 575 ml Other 100 ml 120 ml Output Urine Total 1530 ml 1635 ml Laboratory Tests 12/14/19 04:15: White Blood Count 5.2, Red Blood Count 3.53L, Hemoglobin 11.4L, Hematocrit 35.5L , Mean Corpuscular Volume 101H, Mean Corpuscular Hemoglobin 32.4H, Mean Corpuscular Hemoglobin Concent 32.1, Red Cell Distribution Width 13.0, Platelet Count 186, Mean Platelet Volume 6.8, Neutrophils (%) (Auto) 71.2, Lymphocytes (% ) (Auto) 19.8L, Monocytes (%) (Auto) 7.4, Eosinophils (%) (Auto) 1.2, Basophils (%) (Auto) 0.5, Sodium Level 136, Potassium Level 2.6*L, Chloride Level 95L, Carbon Dioxide Level 33H, Anion Gap 8, Blood Urea Nitrogen 26H, Creatinine 1.3, Estimat Glomerular Filtration Rate 39.4, Glucose Level 66L, Calcium Level 7.6L, Phosphorus Level 2.0L, Magnesium Level 1.7L, Total Bilirubin 1.1H, Direct Bilirubin 0.2, Aspartate Amino Transf (AST/SGOT) 49H, Alanine Aminotransferase ( ALT/SGPT) 112H, Alkaline Phosphatase 56, C-Reactive Protein, Quantitative 5.5H, Pro-B-Type Natriuretic Peptide 2250H, Total Protein 6.2L, Albumin 3.4, Globulin 2.8, Albumin/Globulin Ratio 1.2 Height (Feet): 5 Height (Inches): 7.00 Weight (Pounds): 210 General Appearance: no apparent distress EENT: other - Remains intubated on ventilator Cardiovascular: tachycardia Respiratory/Chest: decreased breath sounds Abdomen: distended Bryan Ochoa MD Dec 14, 2019 13:48
[2019-12-14] MEDS: Vancomycin 500mg/D5W 110ml IVPB SCH ×2 (14:17)
--- NOTE | 2019-12-14 14:29 | NUR ---
NURSE NOTES: Patient remains orally intubated; tolerating vent settings. TF Vital AF 1.2 infusing at 20ml/hr via OGT. Bilateral soft wrists restraints remains in place, safety measures in place. Will continue to monitor.
--- NOTE | 2019-12-14 14:30 | General Progress Note ---
Assessment/Plan Problem List: (1) Dyspnea ICD Codes: R06.00 - Dyspnea, unspecified SNOMED: 939682278 (2) Hypothyroidism ICD Codes: E03.9 - Hypothyroidism, unspecified SNOMED: 01166428 (3) Obese ICD Codes: E66.9 - Obesity, unspecified SNOMED: 429589687, 991788167 (4) Psychosis ICD Codes: F29 - Unspecified psychosis not due to a substance or known physiological condition SNOMED: 13786415 (5) Respiratory failure ICD Codes: J96.90 - Respiratory failure, unspecified, unspecified whether with hypoxia or hypercapnia SNOMED: 449026478 (6) Respiratory distress ICD Codes: R06.03 - Acute respiratory distress SNOMED: 460065255 (7) Dyspnea ICD Codes: R06.00 - Dyspnea, unspecified SNOMED: 427779009 (8) Pneumonia ICD Codes: J18.9 - Pneumonia, unspecified organism SNOMED: 002878239 (9) Acute and chronic respiratory failure ICD Codes: J96.20 - Acute and chronic respiratory failure, unspecified whether with hypoxia or hypercapnia SNOMED: 42099431 (10) Diabetes mellitus type 2 in nonobese ICD Codes: E11.9 - Type 2 diabetes mellitus without complications SNOMED: 176299492 (11) CHF (congestive heart failure) ICD Codes: I50.9 - Heart failure, unspecified SNOMED: 33664165 Qualifiers: Qualified Codes: I50.9 - Heart failure, unspecified (12) Hypoxia ICD Codes: R09.02 - Hypoxemia SNOMED: 450751317 (13) Elevated d-dimer ICD Codes: R79.89 - Other specified abnormal findings of blood chemistry SNOMED: 450373697 (14) Schizophrenia ICD Codes: F20.9 - Schizophrenia, unspecified SNOMED: 37110562 (15) Parkinson disease ICD Codes: G20 - Parkinson's disease SNOMED: 51753756 Assessment/Plan: intubated plural effusion lethargic abx per id is on vanc also sepsis pna covid negative chf copd bilateral rhonci niddm severe hypothroid Subjective ROS Limited/Unobtainable: Yes Allergies: Coded Allergies: LITHIUM (Verified Allergy, Unknown, 02/07/19) Objective Last 24 Hour Vital Signs Date Time Temp Pulse Resp B/P (MAP) Pulse Ox O2 Delivery O2 Flow Rate FiO2 7/3/20 14:00 72 17 130/42 (71) 100 12/14/19 13:00 72 16 125/42 (69) 100 12/14/19 12:00 66 12/14/19 12:00 Endotracheal Tube 12/14/19 12:00 35 12/14/19 12:00 98.4 70 16 130/42 (71) 100 12/14/19 11:20 71 15 35 12/14/19 11:00 67 15 124/43 (70) 100 12/14/19 10:00 67 15 127/46 (73) 100 12/14/19 09:00 65 15 126/40 (68) 100 12/14/19 09:00 35 12/14/19 08:00 66 12/14/19 08:00 97.8 66 15 130/41 (70) 100 12/14/19 08:00 Endotracheal Tube 12/14/19 07:20 65 15 35 12/14/19 07:00 64 15 122/39 (66) 100 12/14/19 06:30 64 15 12/14/19 06:30 64 15 120/39 (66) 100 12/14/19 06:00 64 15 123/40 (67) 100 12/14/19 05:00 62 15 122/38 (66) 100 12/14/19 04:30 62 15 122/39 (66) 100 12/14/19 04:00 98.5 64 15 130/39 (69) 100 12/14/19 04:00 40 12/14/19 04:00 Endotracheal Tube 12/14/19 03:14 61 12/14/19 03:06 68 15 35 12/14/19 03:00 63 15 126/39 (68) 100 12/14/19 02:30 61 15 125/39 (67) 100 12/14/19 02:00 60 15 121/37 (65) 100 12/14/19 01:30 61 15 117/38 (64) 100 12/14/19 01:00 65 14 121/46 (71) 100 12/14/19 00:00 98.3 63 0 105/39 (61) 100 12/14/19 00:00 Endotracheal Tube 12/13/19 23:44 63 15 35 12/13/19 23:20 64 12/13/19 23:00 63 16 105/38 (60) 100 12/13/19 22:00 64 15 110/39 (62) 100 12/13/19 21:00 68 13 127/39 (68) 100 12/13/19 20:00 Endotracheal Tube 12/13/19 20:00 40 12/13/19 20:00 98.4 69 15 111/73 (86) 100 12/13/19 19:46 66 15 35 12/13/19 19:37 67 12/13/19 19:00 66 15 120/40 (66) 100 12/13/19 18:00 98.7 65 15 129/42 (71) 100 12/13/19 17:00 68 15 112/45 (67) 100 12/13/19 16:00 Endotracheal Tube 12/13/19 16:00 40 12/13/19 16:00 66 16 110/43 (65) 100 12/13/19 15:30 65 12/13/19 15:29 68 15 35 12/13/19 15:00 65 15 117/35 (62) 100 Intake and Output 12/13/19 12/14/19 19:00 07:00 Intake Total 1155 ml 695 ml Output Total 1530 ml 1635 ml Balance -375 ml -940 ml Intake IV Total 1055 ml 575 ml Other 100 ml 120 ml Output Urine Total 1530 ml 1635 ml Laboratory Tests 12/14/19 04:15: White Blood Count 5.2, Red Blood Count 3.53L, Hemoglobin 11.4L, Hematocrit 35.5L , Mean Corpuscular Volume 101H, Mean Corpuscular Hemoglobin 32.4H, Mean Corpuscular Hemoglobin Concent 32.1, Red Cell Distribution Width 13.0, Platelet Count 186, Mean Platelet Volume 6.8, Neutrophils (%) (Auto) 71.2, Lymphocytes (% ) (Auto) 19.8L, Monocytes (%) (Auto) 7.4, Eosinophils (%) (Auto) 1.2, Basophils (%) (Auto) 0.5, Sodium Level 136, Potassium Level 2.6*L, Chloride Level 95L, Carbon Dioxide Level 33H, Anion Gap 8, Blood Urea Nitrogen 26H, Creatinine 1.3, Estimat Glomerular Filtration Rate 39.4, Glucose Level 66L, Calcium Level 7.6L, Phosphorus Level 2.0L, Magnesium Level 1.7L, Total Bilirubin 1.1H, Direct Bilirubin 0.2, Aspartate Amino Transf (AST/SGOT) 49H, Alanine Aminotransferase ( ALT/SGPT) 112H, Alkaline Phosphatase 56, C-Reactive Protein, Quantitative 5.5H, Pro-B-Type Natriuretic Peptide 2250H, Total Protein 6.2L, Albumin 3.4, Globulin 2.8, Albumin/Globulin Ratio 1.2 Height (Feet): 5 Height (Inches): 7.00 Weight (Pounds): 210 General Appearance: lethargic Dani Perera MD Dec 14, 2019 14:30
--- NOTE | 2019-12-14 16:00 | NUR ---
NURSE NOTES: Complete bed bath given, linens replaced. No BM noted. Patient remains intubated. TF resumed after bed bath. No distress; afebrile. Will continue to monitor.
[2019-12-14] MEDS: Cefepime HCl 1 GM in D5W 55 ML IVPB SCH (16:21)
--- NOTE | 2019-12-14 18:00 | NUR ---
NURSE NOTES: BS within normal limits, no insulin coverage. Patient awake, able to follow simple commands such as nodding. Remains orally intubated, tolerating vent settings. Repositioned for comfort and safety. No s/s of distress. Left patient clean and dry. Restraints released and reapplied; educated patient not to pull medical devices. Safety measures remains in place. Will continue to monitor.
--- NOTE | 2019-12-14 18:59 | NUR ---
HAND-OFF: Report given to DARREL Chau. Endorsed plan of care.
--- NOTE | 2019-12-14 19:00 | NUR ---
NURSE NOTES: Received patient from DARREL Bolanos. Will continue plan of care.
--- NOTE | 2019-12-14 20:00 | NUR ---
NURSE NOTES: Patient is intubated; ETT 7.5 @ 24cm to the left side of the lipline to vent settings AC:15, TV:450, FiO2:35%, PEEP:5, O2 saturation:100%. OGT in place, feediong Vital AF started earlier today running at 30ml/hr will increase to goal of 50ml/hr as tolerated. Ace intact and draining. Left A/C 20g IV running NS @ 50ml/hr, right wrist 20g TKO. Patient was asleep but awakens to voice and touch, shows a bit of understanding of not pulling on tubing and lines for it can be dangerous. [employer] restraints on, ROM and skin assessed. Safety measures on; bed low, locked and alarm is on. BP:125/47 HR:75 RESP: 15, TEMP:98.6F axillary. Will continue plan of care.
--- NOTE | 2019-12-14 22:00 | NUR ---
NURSE NOTES: Patient awakens to voice and touch. She has been compliant and helpful with her care. Repositioned.
--- NOTE | 2019-12-14 23:25 | Psych Consult Progress Note ---
Psychiatry Progress Note Psychiatry Progress Note Medications Current Medications Medications (Trade) Dose Ordered Sig/Angie Route PRN Reason Start Time Stop Time Status Last Admin Dose Admin Acetaminophen (Tylenol) 650 mg Q6H PRN ORAL Mild Pain (Pain Scale 1-3) 12/12/19 12:30 01/11/20 12:29 Acetaminophen (Tylenol) 1,000 mg Q6H PRN ORAL MODERATE PAIN 12/12/19 12:30 01/11/20 12:29 Amantadine HCl (Symmetrel) 100 mg TWICE A DAY ORAL 12/12/19 18:00 01/11/20 08:59 12/14/19 17:17 Aspirin (Ecotrin) 325 mg DAILY ORAL 12/13/19 09:00 01/26/20 08:59 12/14/19 08:47 Atorvastatin Calcium (Lipitor) 10 mg BEDTIME ORAL 12/12/19 21:00 03/11/20 20:59 12/14/19 20:33 Calcium Carbonate (Os-Octavio) 1,250 mg THREE TIMES A DAY ORAL 12/12/19 13:00 03/11/20 09:59 12/14/19 17:17 Cefepime HCl 1 gm/ Dextrose 55 ml @ 110 mls/hr Q24H IVPB 12/12/19 16:00 12/19/19 15:59 12/14/19 16:21 Clonidine HCl (Catapres Tab) 0.1 mg Q6H PRN ORAL For high BP over 160 systolic 12/12/19 12:31 03/11/20 12:30 Dextrose (Dextrose 50%) 25 ml Q30M PRN IV Hypoglycemia 12/13/19 07:15 03/12/20 07:14 Dextrose (Dextrose 50%) 50 ml Q30M PRN IV Hypoglycemia 12/13/19 07:15 03/12/20 07:14 Divalproex Sodium (Depakote Sprinkles) 250 mg EVERY 12 HOURS NG 12/13/19 21:00 01/12/20 20:59 12/14/19 20:33 Docusate Sodium (Colace) 100 mg TIAC ORAL 12/12/19 16:30 01/11/20 06:29 12/14/19 16:25 Furosemide (Lasix) 40 mg BID IV 12/12/19 18:00 01/11/20 08:59 12/14/19 17:16 Insulin Aspart (NovoLOG) EVERY 6 HOURS SUBQ 12/13/19 12:00 03/12/20 11:59 Levothyroxine Sodium (Synthroid) 75 mcg DAILY IV 12/13/19 09:00 01/11/20 09:29 12/14/19 09:35 Lorazepam (Ativan) 1 mg Q6H PRN ORAL For Anxiety 12/12/19 12:31 12/19/19 12:30 Nitroglycerin (Ntg) 0.4 mg Q5MIN X 3 DOSES PRN SL CHEST PAIN 12/12/19 12:00 01/10/20 21:44 Olanzapine (ZyPREXA) 5 mg BID ORAL 12/12/19 18:00 01/26/20 08:59 12/14/19 17:17 Pantoprazole (Protonix) 40 mg EVERY 12 HOURS IVP 12/14/19 09:00 01/13/20 08:59 12/14/19 20:33 Potassium Chloride (K-Dur) 40 meq TWICE A DAY NG 12/14/19 10:30 03/13/20 10:29 12/14/19 17:16 Sodium Chloride 1,000 ml @ 50 mls/hr Q20H IV 12/12/19 12:30 01/11/20 12:29 12/14/19 18:00 Vancomycin HCl ([facility] pharmacy to dose) 1 ea DAILY PRN MISC Per rx protocol 12/14/19 12:15 01/13/20 12:14 Vancomycin HCl 500 mg/Dextrose 110 ml @ 110 mls/hr Q12HR@0200,1400 IVPB 12/14/19 14:00 12/19/19 13:59 12/14/19 14:17 Allergies: Coded Allergies: LITHIUM (Verified Allergy, Unknown, 02/07/19) Objective Data Height (Feet): 5 Height (Inches): 7.00 Weight (Pounds): 210 Kiana Hernandez MD Dec 14, 2019 23:25
[2019-12-15] VITALS (31 sets, daily range): BP systolic 114–139; BP diastolic 41–90
--- NOTE | 2019-12-15 | NUR ---
NURSE NOTES: Patient is sleeping comfortably but continues to awaken to voice and touch. BP:116/42, HR:72, O2sat:98%. No changes in vent settings. FiO2 continues at 35%.
[2019-12-15] MEDS: Vancomycin 500mg/D5W 110ml IVPB SCH ×4 (02:00→12:53)
--- NOTE | 2019-12-15 02:00 | NUR ---
NURSE NOTES: No changes in condition. Vital signs stable.
--- NOTE | 2019-12-15 04:00 | NUR ---
NURSE NOTES: Bed bath given, linens changed, turned and repositioned. Patient is stable, compliant and helpful during bath. She is comfortable and is now resting.
[2019-12-15] MEDS: Docusate 100mg cap ORAL SCH (05:42)
[2019-12-15] MEDS: NovoLOG Insulin Flexpen SUBQ SCH ×4 (05:42→17:52)
[2019-12-15 05:53] LABS: BASOPHILS % (AUTO) 0.5 % (0.0-2.0); EOSINOPHILS % (AUTO) 1.1 % (0.0-3.0); HEMATOCRIT 34.9 % (37.0-47.0); HEMOGLOBIN 11.3 G/DL (12.0-16.0); MEAN CORPUSCULAR VOLUME 100 FL (80-99); MONOCYTES % (AUTO) 8.8 % (1.0-10.0); NEUTROPHILS % (AUTO) 70.6 % (45.0-75.0); PLATELET COUNT 182 K/UL (150-450); RED BLOOD COUNT 3.49 M/UL (4.20-5.40); RED CELL DISTRIBUTION WIDTH 12.9 % (11.6-14.8); WHITE BLOOD COUNT 5.8 K/UL (4.8-10.8)
--- NOTE | 2019-12-15 06:00 | NUR ---
NURSE NOTES: Patient is resting. Vital signs are stable. Accucheck 145, 3 units novolog given subq.
[2019-12-15 06:11] LABS: ALANINE AMINOTRANSFERASE 93 U/L (12-78); ALBUMIN 3.2 G/DL (3.4-5.0); ALBUMIN/GLOBULIN RATIO 1.1 (1.0-2.7); ALKALINE PHOSPHATASE 51 U/L (46-116); ANION GAP 8 mmol/L (5-15); ASPARTATE AMINO TRANSFERASE 36 U/L (15-37); BILIRUBIN,TOTAL 0.8 MG/DL (0.2-1.0); BLOOD UREA NITROGEN 23 mg/dL (7-18); CALCIUM 7.4 MG/DL (8.5-10.1); CARBON DIOXIDE 35 MMOL/L (21-32); CHLORIDE 97 MMOL/L (98-107); CREATININE 1.4 MG/DL (0.55-1.30); POTASSIUM 2.9 MMOL/L (3.5-5.1); SODIUM 139 MMOL/L (136-145)
[2019-12-15 06:19] LABS: PHOSPHORUS 1.8 MG/DL (2.5-4.9)
[2019-12-15 06:46] LABS: % IRON SATURATION 10 % (15-50); IRON 32 ug/dL (50-175); TOTAL IRON BINDING CAPACITY 327 ug/dL (250-450)
--- NOTE | 2019-12-15 07:34 | NUR ---
HAND-OFF: Report given to DARREL CEDILLO.
--- NOTE | 2019-12-15 07:35 | NUR ---
NURSE NOTES: Pt received from DARREL Chau. Pt is awake in bed, AAO x 1 to person, able to follow simple commands, PERRLA+. Pt is SR with 1st degree AVB to ekg monitor. bilateral radial and dorsalis pedis pulses 2+. Left and right hands noted with pitting edema (2+ and 1+ respectively). Pt is mechanically ventilated with 7.5 ETT noted 24 cm at lip line with the following settings: AC 15 TV 450 FiO2 35% Peep 5. SpO2 noted 99-100%. All lung lobes noted diminished upon auscultation. Abd is round, soft, and non-tender with active bowel sounds to all quadrants. OGT noted running Vital AF 1.2 at 50 cc/hr without gastric residuals at this time. F/C noted draining yellow urine. Skin alterations noted. Pt has a LAC 20 g IV running NS at 50 cc/hr and RW 20g IV saline locked.. Pt on [employer] restraints, radial pulses palpable, skin to both wrists intact without redness or swelling. Bed in lowest position with alarm on, side rails up x 3, call light within reach. Will continue to monitor.
--- NOTE | 2019-12-15 08:19 | Diagnostic Imaging Report ---
EXAM: XR Chest, 1 View CLINICAL HISTORY: ABN CHST TECHNIQUE: Frontal view of the chest. COMPARISON: No relevant prior studies available. FINDINGS/IMPRESSION: There is an endotracheal tube which terminates 3.3 cm above the du. Enteric feeding tube terminates below the diaphragm. Small bilateral pleural effusions. No pneumothorax. Marked cardiomegaly with a water-bottle configuration which should be correlated with echocardiogram to exclude pericardial effusion.
[2019-12-15] MEDS ORDERED: Potassium Chl 10mEq/100ml 110 ML IV ONE (09:00)
--- NOTE | 2019-12-15 09:00 | NUR ---
NURSE NOTES: Dr Ochoa assessing pt at bedside and reviewing labs - aware of potassium level today and states he will order replacement.
[2019-12-15] MEDS: Pantoprazole Inj IVP SCH ×2 (09:20→20:31)
[2019-12-15] MEDS: Aspirin EC 325mg tab ORAL SCH (09:20)
[2019-12-15] MEDS: Phospha 250 Neutral tab GT SCH ×3 (09:20→17:45)
[2019-12-15] MEDS: Os-Cal (Oyster Shell) 500mg tab ORAL SCH ×2 (09:21→12:53)
[2019-12-15] MEDS: Amantadine 100mg cap ORAL SCH (09:21)
[2019-12-15] MEDS: Depakote 125mg Sprinkles NG SCH ×2 (09:22→20:32)
[2019-12-15] MEDS ORDERED: Potassium Chloride 50 MEQ in Sodium Chloride 550 ML IVPB SCH (10:00)
--- NOTE | 2019-12-15 10:00 | NUR ---
NURSE NOTES: Dr Chicas assessing pt at bedside. Pt repositioned, no distress noted.
--- NOTE | 2019-12-15 10:11 | Nephrology Progress Note ---
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 Respiratory distress most likely secondary to pulmonary edema and or COPD exacerbation. Hyponatremia. Obese. Hypothyroidism. Elevated d-dimer. Elevated liver enzymes Plan December 14: Patient remains in ICU intubated on ventilator. Potassium low. Phosphorus low. Supplements given. Renal parameters are stable. Continue per consultants. December 13: Patient remains in ICU intubated on ventilator. Discussed with RN. Labs reviewed. Creatinine 1.3. Potassium supplements given. Mag sulfate IV 2 g given. Continue per consultants. December 12: Patient in ICU. Intubated on ventilator. Discussed with RN. Labs reviewed. Potassium supplement given. Continue per consultants. Arterial blood gas indicative of CO2 retention. Patient on the way to ICU for intubation. Continue per pulmonary management. Pulmonary support, Check 2D echocardiogram. Previous 2D echo had a 50% ejection fraction. Keep blood sugar and blood pressure in check. Thyroid panel. Monitor electrolytes and renal parameters. Afterload reduction. Diuretics Monitor serum calcium, supplements via NG tube. Per orders. Subjective ROS Limited/Unobtainable: Yes Objective Objective Last 24 Hour Vital Signs Date Time Temp Pulse Resp B/P (MAP) Pulse Ox O2 Delivery O2 Flow Rate FiO2 12/15/19 09:00 70 16 128/45 (72) 100 12/15/19 08:00 35 12/15/19 08:00 68 12/15/19 08:00 99.0 68 16 126/43 (70) 100 12/15/19 07:00 70 16 122/44 (70) 100 12/15/19 06:30 69 15 12/15/19 06:00 69 15 116/44 (68) 99 12/15/19 05:30 68 15 123/44 (70) 100 12/15/19 05:00 69 15 118/44 (68) 100 12/15/19 04:30 74 17 127/49 (75) 99 12/15/19 04:00 35 12/15/19 04:00 Endotracheal Tube 12/15/19 04:00 98.5 70 17 127/42 (70) 100 12/15/19 03:30 70 16 123/42 (69) 99 12/15/19 03:07 70 17 35 12/15/19 03:02 69 12/15/19 03:00 70 17 123/41 (68) 99 12/15/19 02:30 69 17 120/43 (68) 100 12/15/19 02:00 70 16 121/43 (69) 99 12/15/19 01:30 71 18 126/45 (72) 100 12/15/19 01:00 71 16 119/43 (68) 98 12/15/19 00:00 99.3 72 18 116/42 (66) 98 12/15/19 00:00 Endotracheal Tube 12/14/19 23:49 72 17 35 12/14/19 23:30 71 15 113/42 (65) 99 12/14/19 23:04 73 12/14/19 23:00 73 17 119/43 (68) 98 12/14/19 22:30 74 17 127/47 (73) 100 12/14/19 22:00 74 17 119/46 (70) 99 12/14/19 21:30 74 17 124/44 (70) 99 12/14/19 21:00 75 18 129/44 (72) 99 12/14/19 20:30 76 18 129/44 (72) 99 12/14/19 20:00 Endotracheal Tube 12/14/19 20:00 35 12/14/19 20:00 98.6 75 18 125/47 (73) 100 12/14/19 19:54 74 17 35 12/14/19 19:32 74 12/14/19 19:00 72 18 129/48 (75) 100 12/14/19 18:00 70 17 123/46 (71) 100 12/14/19 17:00 98.9 73 17 115/44 (67) 100 12/14/19 16:00 35 12/14/19 16:00 68 12/14/19 16:00 Endotracheal Tube 12/14/19 16:00 68 16 122/43 (69) 100 12/14/19 15:30 72 17 35 12/14/19 15:00 69 16 121/39 (66) 100 12/14/19 14:00 72 17 130/42 (71) 100 12/14/19 13:00 72 16 125/42 (69) 100 12/14/19 12:00 66 12/14/19 12:00 Endotracheal Tube 12/14/19 12:00 35 12/14/19 12:00 98.4 70 16 130/42 (71) 100 12/14/19 11:20 71 15 35 12/14/19 11:00 67 15 124/43 (70) 100 Intake and Output 12/14/19 12/15/19 19:00 07:00 Intake Total 1325 ml 1310 ml Output Total 1970 ml 1450 ml Balance -645 ml -140 ml IV Total 1065 ml 710 ml Tube Feeding 210 ml 540 ml Other 50 ml 60 ml Output Urine Total 1970 ml 1450 ml Laboratory Tests 12/14/19 17:09: POC Whole Blood Glucose 108H 12/15/19 04:50: White Blood Count 5.8, Red Blood Count 3.49L, Hemoglobin 11.3L, Hematocrit 34.9L , Mean Corpuscular Volume 100H, Mean Corpuscular Hemoglobin 32.4H, Mean Corpuscular Hemoglobin Concent 32.4, Red Cell Distribution Width 12.9, Platelet Count 182, Mean Platelet Volume 6.3L, Neutrophils (%) (Auto) 70.6, Lymphocytes ( %) (Auto) 19.0L, Monocytes (%) (Auto) 8.8, Eosinophils (%) (Auto) 1.1, Basophils (%) (Auto) 0.5, Sodium Level 139, Potassium Level 2.9L, Chloride Level 97L, Carbon Dioxide Level 35H, Anion Gap 8, Blood Urea Nitrogen 23H, Creatinine 1.4H, Estimat Glomerular Filtration Rate 36.2, Glucose Level 145H, Uric Acid 10.5H, Calcium Level 7.4L, Phosphorus Level 1.8L, Magnesium Level 1.8 , Iron Level 32L, Total Iron Binding Capacity 327, Percent Iron Saturation 10L, Unsaturated Iron Binding 295, Total Bilirubin 0.8, Aspartate Amino Transf (AST/ SGOT) 36, Alanine Aminotransferase (ALT/SGPT) 93H, Alkaline Phosphatase 51, Total Protein 6.2L, Albumin 3.2L, Globulin 3.0, Albumin/Globulin Ratio 1.1, Vitamin B12 Level 889, Folate 18.1, Hepatitis A IgM Antibody [Pending], Hepatitis B Surface Antigen [Pending], Hepatitis B Core IgM Antibody [Pending], Hepatitis C Antibody [Pending] 12/15/19 09:18: Arterial Blood pH 7.466H, Arterial Blood Partial Pressure CO2 48.2H, Arterial Blood Partial Pressure O2 87.7, Arterial Blood HCO3 34.0H, Arterial Blood Oxygen Saturation 96.4, Arterial Blood Base Excess 9H, Raphael Test Positive Height (Feet): 5 Height (Inches): 7.00 Weight (Pounds): 211 General Appearance: no apparent distress EENT: other - Intubated on ventilator Cardiovascular: tachycardia Respiratory/Chest: decreased breath sounds Abdomen: soft Bryan Ochoa MD Dec 15, 2019 10:11
--- NOTE | 2019-12-15 11:00 | NUR ---
NURSE NOTES: Dr Myers on the unit, assessing pt and reviewing today's ABGs.
--- NOTE | 2019-12-15 11:56 | Pulmonology Progress Note ---
Subjective ROS Limited/Unobtainable: Yes Interval Events: Remains intubated Constitutional: Denies: fever HEENT: Repors: no symptoms Respiratory: Reports: no symptoms Cardiovascular: Reports: no symptoms Gastrointestinal/Abdominal: Reports: no symptoms Genitourinary: Reports: no symptoms Allergies: Coded Allergies: LITHIUM (Verified Allergy, Unknown, 02/07/19) Objective Last 24 Hour Vital Signs Date Time Temp Pulse Resp B/P (MAP) Pulse Ox O2 Delivery O2 Flow Rate FiO2 12/15/19 11:50 73 16 35 12/15/19 11:00 73 17 127/47 (73) 100 12/15/19 10:00 71 16 131/48 (75) 99 12/15/19 09:00 70 16 128/45 (72) 100 12/15/19 08:00 Mechanical Ventilator 12/15/19 08:00 35 12/15/19 08:00 68 12/15/19 08:00 99.0 68 16 126/43 (70) 100 12/15/19 07:22 72 17 35 12/15/19 07:00 70 16 122/44 (70) 100 12/15/19 06:30 69 15 12/15/19 06:00 69 15 116/44 (68) 99 12/15/19 05:30 68 15 123/44 (70) 100 12/15/19 05:00 69 15 118/44 (68) 100 12/15/19 04:30 74 17 127/49 (75) 99 12/15/19 04:00 35 12/15/19 04:00 Endotracheal Tube 12/15/19 04:00 98.5 70 17 127/42 (70) 100 12/15/19 03:30 70 16 123/42 (69) 99 12/15/19 03:07 70 17 35 12/15/19 03:02 69 12/15/19 03:00 70 17 123/41 (68) 99 12/15/19 02:30 69 17 120/43 (68) 100 12/15/19 02:00 70 16 121/43 (69) 99 12/15/19 01:30 71 18 126/45 (72) 100 12/15/19 01:00 71 16 119/43 (68) 98 12/15/19 00:00 99.3 72 18 116/42 (66) 98 12/15/19 00:00 Endotracheal Tube 12/14/19 23:49 72 17 35 12/14/19 23:30 71 15 113/42 (65) 99 12/14/19 23:04 73 12/14/19 23:00 73 17 119/43 (68) 98 12/14/19 22:30 74 17 127/47 (73) 100 12/14/19 22:00 74 17 119/46 (70) 99 12/14/19 21:30 74 17 124/44 (70) 99 12/14/19 21:00 75 18 129/44 (72) 99 12/14/19 20:30 76 18 129/44 (72) 99 12/14/19 20:00 Endotracheal Tube 12/14/19 20:00 35 12/14/19 20:00 98.6 75 18 125/47 (73) 100 12/14/19 19:54 74 17 35 12/14/19 19:32 74 12/14/19 19:00 72 18 129/48 (75) 100 12/14/19 18:00 70 17 123/46 (71) 100 12/14/19 17:00 98.9 73 17 115/44 (67) 100 12/14/19 16:00 35 12/14/19 16:00 68 12/14/19 16:00 Endotracheal Tube 12/14/19 16:00 68 16 122/43 (69) 100 12/14/19 15:30 72 17 35 12/14/19 15:00 69 16 121/39 (66) 100 12/14/19 14:00 72 17 130/42 (71) 100 12/14/19 13:00 72 16 125/42 (69) 100 12/14/19 12:00 66 12/14/19 12:00 Endotracheal Tube 12/14/19 12:00 35 12/14/19 12:00 98.4 70 16 130/42 (71) 100 Intake and Output 12/14/19 12/15/19 19:00 07:00 Intake Total 1325 ml 1310 ml Output Total 1970 ml 1450 ml Balance -645 ml -140 ml IV Total 1065 ml 710 ml Tube Feeding 210 ml 540 ml Other 50 ml 60 ml Output Urine Total 1970 ml 1450 ml General Appearance: no acute distress Respiratory: chest wall non-tender, lungs clear Cardiovascular: normal peripheral pulses, normal rate Abdomen: normal bowel sounds Microbiology Date/Time Source Procedure Growth Status 12/13/19 14:50 Nasopharynx Coronavirus COVID-19 PCR ([facility]) - Final Complete 12/12/19 16:40 Sputum Gram Stain - Final Complete 12/12/19 16:40 Sputum Sputum Culture - Final NORMAL UPPER RESPIRATORY CHAIM PRESENT Complete Laboratory Tests 12/14/19 17:09: POC Whole Blood Glucose 108H 12/15/19 04:50: White Blood Count 5.8, Red Blood Count 3.49L, Hemoglobin 11.3L, Hematocrit 34.9L , Mean Corpuscular Volume 100H, Mean Corpuscular Hemoglobin 32.4H, Mean Corpuscular Hemoglobin Concent 32.4, Red Cell Distribution Width 12.9, Platelet Count 182, Mean Platelet Volume 6.3L, Neutrophils (%) (Auto) 70.6, Lymphocytes ( %) (Auto) 19.0L, Monocytes (%) (Auto) 8.8, Eosinophils (%) (Auto) 1.1, Basophils (%) (Auto) 0.5, Sodium Level 139, Potassium Level 2.9L, Chloride Level 97L, Carbon Dioxide Level 35H, Anion Gap 8, Blood Urea Nitrogen 23H, Creatinine 1.4H, Estimat Glomerular Filtration Rate 36.2, Glucose Level 145H, Uric Acid 10.5H, Calcium Level 7.4L, Phosphorus Level 1.8L, Magnesium Level 1.8 , Iron Level 32L, Total Iron Binding Capacity 327, Percent Iron Saturation 10L, Unsaturated Iron Binding 295, Total Bilirubin 0.8, Aspartate Amino Transf (AST/ SGOT) 36, Alanine Aminotransferase (ALT/SGPT) 93H, Alkaline Phosphatase 51, Total Protein 6.2L, Albumin 3.2L, Globulin 3.0, Albumin/Globulin Ratio 1.1, Vitamin B12 Level 889, Folate 18.1, Hepatitis A IgM Antibody [Pending], Hepatitis B Surface Antigen [Pending], Hepatitis B Core IgM Antibody [Pending], Hepatitis C Antibody [Pending] 12/15/19 09:18: Arterial Blood pH 7.466H, Arterial Blood Partial Pressure CO2 48.2H, Arterial Blood Partial Pressure O2 87.7, Arterial Blood HCO3 34.0H, Arterial Blood Oxygen Saturation 96.4, Arterial Blood Base Excess 9H, Raphael Test Positive Current Medications Medications (Trade) Dose Ordered Sig/Angie Route PRN Reason Start Time Stop Time Status Last Admin Dose Admin Acetaminophen (Tylenol) 650 mg Q6H PRN ORAL Mild Pain (Pain Scale 1-3) 12/12/19 12:30 01/11/20 12:29 Acetaminophen (Tylenol) 1,000 mg Q6H PRN ORAL MODERATE PAIN 12/12/19 12:30 01/11/20 12:29 Amantadine HCl (Symmetrel) 100 mg TWICE A DAY ORAL 12/12/19 18:00 01/11/20 08:59 12/15/19 09:21 Aspirin (Ecotrin) 325 mg DAILY ORAL 12/13/19 09:00 01/26/20 08:59 12/15/19 09:20 Atorvastatin Calcium (Lipitor) 10 mg BEDTIME ORAL 12/12/19 21:00 03/11/20 20:59 12/14/19 20:33 Calcium Carbonate (Os-Octavio) 1,250 mg THREE TIMES A DAY ORAL 12/12/19 13:00 03/11/20 09:59 12/15/19 09:21 Cefepime HCl 1 gm/ Dextrose 55 ml @ 110 mls/hr Q24H IVPB 12/12/19 16:00 12/19/19 15:59 12/14/19 16:21 Clonidine HCl (Catapres Tab) 0.1 mg Q6H PRN ORAL For high BP over 160 systolic 12/12/19 12:31 03/11/20 12:30 Dextrose (Dextrose 50%) 25 ml Q30M PRN IV Hypoglycemia 12/13/19 07:15 03/12/20 07:14 Dextrose (Dextrose 50%) 50 ml Q30M PRN IV Hypoglycemia 12/13/19 07:15 03/12/20 07:14 Divalproex Sodium (Depakote Sprinkles) 250 mg EVERY 12 HOURS NG 12/13/19 21:00 01/12/20 20:59 12/15/19 09:22 Docusate Sodium (Colace) 100 mg TWICE A DAY NG 12/15/19 18:00 01/14/20 17:59 Furosemide (Lasix) 40 mg BID IV 12/12/19 18:00 01/11/20 08:59 12/15/19 09:20 Insulin Aspart (NovoLOG) EVERY 6 HOURS SUBQ 12/13/19 12:00 03/12/20 11:59 12/15/19 05:42 Levothyroxine Sodium (Synthroid) 75 mcg DAILY IV 12/13/19 09:00 01/11/20 09:29 12/15/19 09:20 Lorazepam (Ativan) 1 mg Q6H PRN ORAL For Anxiety 12/12/19 12:31 12/19/19 12:30 Nitroglycerin (Ntg) 0.4 mg Q5MIN X 3 DOSES PRN SL CHEST PAIN 12/12/19 12:00 01/10/20 21:44 Olanzapine (ZyPREXA) 5 mg BID ORAL 12/12/19 18:00 01/26/20 08:59 12/15/19 09:21 Pantoprazole (Protonix) 40 mg EVERY 12 HOURS IVP 12/14/19 09:00 01/13/20 08:59 12/15/19 09:20 Phosphorus (Phospha 250 Neutral) 250 mg THREE TIMES A DAY GT 12/15/19 09:00 01/14/20 08:59 12/15/19 09:20 Potassium Chloride 50 meq/ Sodium Chloride 575 ml @ 115 mls/hr ONCE IVPB 12/15/19 10:00 12/15/19 14:59 12/15/19 10:51 Potassium Chloride (K-Dur) 40 meq TWICE A DAY NG 12/14/19 10:30 03/13/20 10:29 12/15/19 09:22 Sodium Chloride 1,000 ml @ 50 mls/hr Q20H IV 12/12/19 12:30 01/11/20 12:29 12/14/19 18:00 Vancomycin HCl ([facility] pharmacy to dose) 1 ea DAILY PRN MISC Per rx protocol 12/14/19 12:15 01/13/20 12:14 Vancomycin HCl 500 mg/Dextrose 110 ml @ 110 mls/hr Q12HR@0200,1400 IVPB 12/14/19 14:00 12/19/19 13:59 12/15/19 02:00 Assessment/Plan Assessment/Plan IMPRESSION: 1. Respiratory failure. 2. Has healthcare-associated pneumonia; is negative for COVID-19. 3. Psych disorder. 4. Obesity. 5. Hypertension. DISCUSSION: Continue broad spectrum antibiotics. On propofol. I will manage respirator, currently on AC mode 50% FiO2 and PEEP of 5. Has negative COVID-19 swab. I will follow carefully. Will dc Lasix given metabolic alkalosis Emerita Fan Omar Syed MD Dec 15, 2019 11:56
--- NOTE | 2019-12-15 12:00 | NUR ---
NURSE NOTES: Pt repositioned, oral care provided, pt is afebrile at this time, no distress noted. Weaning initiated per Bettie RT with the following settings: PS8 FiO2 35% Peep 5. SpO2 remains 98-100%. Will continue to monitor.
--- NOTE | 2019-12-15 13:50 | NUR ---
NURSE NOTES: Pt placed back on AC mode with previous settings per Bettie RT. Pt in no distress. Will continue to monitor.
[2019-12-15] MEDS ORDERED: NS 275ml ONE ×2 (13:57→21:14)
[2019-12-15] MEDS ORDERED: Tubing IV Secondary IV ONE ×2 (13:57→13:58)
[2019-12-15] MEDS ORDERED: Sterile Water Irrig 1000ml IRRIG ONE (13:58)
--- NOTE | 2019-12-15 14:00 | NUR ---
NURSE NOTES: Pt repositioned, no distress noted.
--- NOTE | 2019-12-15 15:00 | General Progress Note ---
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 - Other specified diabetes mellitus without complications SNOMED: 912703023 (2) Parkinson disease ICD Codes: G20 - Parkinson's disease SNOMED: 34144183 (3) Schizophrenia ICD Codes: F20.9 - Schizophrenia, unspecified SNOMED: 69229806 (4) Hypertension ICD Codes: I10 - Essential (primary) hypertension SNOMED: 71430437 (5) Respiratory failure ICD Codes: J96.90 - Respiratory failure, unspecified, unspecified whether with hypoxia or hypercapnia SNOMED: 840975642 (6) Hypothyroidism ICD Codes: E03.9 - Hypothyroidism, unspecified SNOMED: 37979750 Assessment/Plan: continue Levothyroxine 75 mcg IV daily continue Novolog sliding scale every 6 hours hypoglycemia protocol in order Subjective ROS Limited/Unobtainable: Yes Allergies: Coded Allergies: LITHIUM (Verified Allergy, Unknown, 02/07/19) Subjective events noted intubated in icu glucose values are stable Item Value Date Time Bedside Blood Glucose 135 mg/dl H 12/15/19 1200 Bedside Blood Glucose 126 mg/dl H 12/15/19 1054 Bedside Blood Glucose 145 mg/dl H 12/15/19 0600 Bedside Blood Glucose 107 mg/dl 12/15/19 0000 Bedside Blood Glucose 108 mg/dl 12/14/19 1800 Bedside Blood Glucose 70 mg/dl 12/14/19 1200 Objective Last 24 Hour Vital Signs Date Time Temp Pulse Resp B/P (MAP) Pulse Ox O2 Delivery O2 Flow Rate FiO2 12/15/19 14:00 80 15 123/48 (73) 97 12/15/19 13:50 35 12/15/19 13:00 85 18 128/53 (78) 99 12/15/19 12:00 98.5 81 19 139/50 (79) 100 12/15/19 12:00 35 12/15/19 12:00 Mechanical Ventilator 12/15/19 12:00 80 12/15/19 11:59 84 18 35 35 12/15/19 11:50 73 16 35 12/15/19 11:00 73 17 127/47 (73) 100 12/15/19 10:00 71 16 131/48 (75) 99 12/15/19 09:00 70 16 128/45 (72) 100 12/15/19 08:00 Mechanical Ventilator 12/15/19 08:00 35 12/15/19 08:00 68 12/15/19 08:00 99.0 68 16 126/43 (70) 100 12/15/19 07:22 72 17 35 12/15/19 07:00 70 16 122/44 (70) 100 12/15/19 06:30 69 15 12/15/19 06:00 69 15 116/44 (68) 99 12/15/19 05:30 68 15 123/44 (70) 100 12/15/19 05:00 69 15 118/44 (68) 100 12/15/19 04:30 74 17 127/49 (75) 99 12/15/19 04:00 35 12/15/19 04:00 Endotracheal Tube 12/15/19 04:00 98.5 70 17 127/42 (70) 100 12/15/19 03:30 70 16 123/42 (69) 99 12/15/19 03:07 70 17 35 12/15/19 03:02 69 12/15/19 03:00 70 17 123/41 (68) 99 12/15/19 02:30 69 17 120/43 (68) 100 12/15/19 02:00 70 16 121/43 (69) 99 12/15/19 01:30 71 18 126/45 (72) 100 12/15/19 01:00 71 16 119/43 (68) 98 12/15/19 00:00 99.3 72 18 116/42 (66) 98 12/15/19 00:00 Endotracheal Tube 12/14/19 23:49 72 17 35 12/14/19 23:30 71 15 113/42 (65) 99 12/14/19 23:04 73 12/14/19 23:00 73 17 119/43 (68) 98 12/14/19 22:30 74 17 127/47 (73) 100 12/14/19 22:00 74 17 119/46 (70) 99 12/14/19 21:30 74 17 124/44 (70) 99 12/14/19 21:00 75 18 129/44 (72) 99 12/14/19 20:30 76 18 129/44 (72) 99 12/14/19 20:00 Endotracheal Tube 12/14/19 20:00 35 12/14/19 20:00 98.6 75 18 125/47 (73) 100 12/14/19 19:54 74 17 35 12/14/19 19:32 74 12/14/19 19:00 72 18 129/48 (75) 100 12/14/19 18:00 70 17 123/46 (71) 100 12/14/19 17:00 98.9 73 17 115/44 (67) 100 12/14/19 16:00 35 12/14/19 16:00 68 12/14/19 16:00 Endotracheal Tube 12/14/19 16:00 68 16 122/43 (69) 100 12/14/19 15:30 72 17 35 12/14/19 15:00 69 16 121/39 (66) 100 Intake and Output 12/14/19 12/15/19 19:00 07:00 Intake Total 1325 ml 1310 ml Output Total 1970 ml 1450 ml Balance -645 ml -140 ml IV Total 1065 ml 710 ml Tube Feeding 210 ml 540 ml Other 50 ml 60 ml Output Urine Total 1970 ml 1450 ml Laboratory Tests 12/14/19 17:09: POC Whole Blood Glucose 108H 12/15/19 04:50: White Blood Count 5.8, Red Blood Count 3.49L, Hemoglobin 11.3L, Hematocrit 34.9L , Mean Corpuscular Volume 100H, Mean Corpuscular Hemoglobin 32.4H, Mean Corpuscular Hemoglobin Concent 32.4, Red Cell Distribution Width 12.9, Platelet Count 182, Mean Platelet Volume 6.3L, Neutrophils (%) (Auto) 70.6, Lymphocytes ( %) (Auto) 19.0L, Monocytes (%) (Auto) 8.8, Eosinophils (%) (Auto) 1.1, Basophils (%) (Auto) 0.5, Sodium Level 139, Potassium Level 2.9L, Chloride Level 97L, Carbon Dioxide Level 35H, Anion Gap 8, Blood Urea Nitrogen 23H, Creatinine 1.4H, Estimat Glomerular Filtration Rate 36.2, Glucose Level 145H, Uric Acid 10.5H, Calcium Level 7.4L, Phosphorus Level 1.8L, Magnesium Level 1.8 , Iron Level 32L, Total Iron Binding Capacity 327, Percent Iron Saturation 10L, Unsaturated Iron Binding 295, Total Bilirubin 0.8, Aspartate Amino Transf (AST/ SGOT) 36, Alanine Aminotransferase (ALT/SGPT) 93H, Alkaline Phosphatase 51, Total Protein 6.2L, Albumin 3.2L, Globulin 3.0, Albumin/Globulin Ratio 1.1, Vitamin B12 Level 889, Folate 18.1, Hepatitis A IgM Antibody [Pending], Hepatitis B Surface Antigen [Pending], Hepatitis B Core IgM Antibody [Pending], Hepatitis C Antibody [Pending] 12/15/19 09:18: Arterial Blood pH 7.466H, Arterial Blood Partial Pressure CO2 48.2H, Arterial Blood Partial Pressure O2 87.7, Arterial Blood HCO3 34.0H, Arterial Blood Oxygen Saturation 96.4, Arterial Blood Base Excess 9H, Raphael Test Positive 12/15/19 13:36: Arterial Blood pH 7.398, Arterial Blood Partial Pressure CO2 59.0*H, Arterial Blood Partial Pressure O2 89.3, Arterial Blood HCO3 35.6H, Arterial Blood Oxygen Saturation 96.2, Arterial Blood Base Excess 8.9H, Raphael Test Positive Height (Feet): 5 Height (Inches): 7.00 Weight (Pounds): 211 General Appearance: other - intubated EENT: other - ETT Cardiovascular: normal rate Respiratory/Chest: decreased breath sounds Abdomen: normal bowel sounds Pelvis: normal external exam Objective Current Medications Medications (Trade) Dose Ordered Sig/Angie Route PRN Reason Start Time Stop Time Status Last Admin Dose Admin Acetaminophen (Tylenol) 650 mg Q6H PRN ORAL Mild Pain (Pain Scale 1-3) 12/12/19 12:30 01/11/20 12:29 Acetaminophen (Tylenol) 1,000 mg Q6H PRN ORAL MODERATE PAIN 12/12/19 12:30 01/11/20 12:29 Amantadine HCl (Symmetrel) 100 mg TWICE A DAY ORAL 12/12/19 18:00 01/11/20 08:59 12/15/19 09:21 Aspirin (Ecotrin) 325 mg DAILY ORAL 12/13/19 09:00 01/26/20 08:59 12/15/19 09:20 Atorvastatin Calcium (Lipitor) 10 mg BEDTIME ORAL 12/12/19 21:00 03/11/20 20:59 12/14/19 20:33 Calcium Carbonate (Os-Octavio) 1,250 mg THREE TIMES A DAY ORAL 12/12/19 13:00 03/11/20 09:59 12/15/19 12:53 Cefepime HCl 1 gm/ Dextrose 55 ml @ 110 mls/hr Q24H IVPB 12/12/19 16:00 12/19/19 15:59 12/14/19 16:21 Clonidine HCl (Catapres Tab) 0.1 mg Q6H PRN ORAL For high BP over 160 systolic 12/12/19 12:31 03/11/20 12:30 Dextrose (Dextrose 50%) 25 ml Q30M PRN IV Hypoglycemia 12/13/19 07:15 03/12/20 07:14 Dextrose (Dextrose 50%) 50 ml Q30M PRN IV Hypoglycemia 12/13/19 07:15 03/12/20 07:14 Divalproex Sodium (Depakote Sprinkles) 250 mg EVERY 12 HOURS NG 12/13/19 21:00 01/12/20 20:59 12/15/19 09:22 Docusate Sodium (Colace) 100 mg TWICE A DAY NG 12/15/19 18:00 01/14/20 17:59 Insulin Aspart (NovoLOG) EVERY 6 HOURS SUBQ 12/13/19 12:00 03/12/20 11:59 12/15/19 05:42 Levothyroxine Sodium (Synthroid) 75 mcg DAILY IV 12/13/19 09:00 01/11/20 09:29 12/15/19 09:20 Lorazepam (Ativan) 1 mg Q6H PRN ORAL For Anxiety 12/12/19 12:31 12/19/19 12:30 Nitroglycerin (Ntg) 0.4 mg Q5MIN X 3 DOSES PRN SL CHEST PAIN 12/12/19 12:00 01/10/20 21:44 Olanzapine (ZyPREXA) 5 mg BID ORAL 12/12/19 18:00 01/26/20 08:59 12/15/19 09:21 Pantoprazole (Protonix) 40 mg EVERY 12 HOURS IVP 12/14/19 09:00 01/13/20 08:59 12/15/19 09:20 Phosphorus (Phospha 250 Neutral) 250 mg THREE TIMES A DAY GT 12/15/19 09:00 01/14/20 08:59 12/15/19 12:53 Potassium Chloride 50 meq/ Sodium Chloride 575 ml @ 115 mls/hr ONCE IVPB 12/15/19 10:00 12/15/19 14:59 12/15/19 10:51 Potassium Chloride (K-Dur) 40 meq TWICE A DAY NG 12/14/19 10:30 03/13/20 10:29 12/15/19 09:22 Sodium Chloride 1,000 ml @ 50 mls/hr Q20H IV 12/12/19 12:30 01/11/20 12:29 12/14/19 18:00 Vancomycin HCl (Vanco pharmacy to dose) 1 ea DAILY PRN MISC Per rx protocol 12/14/19 12:15 01/13/20 12:14 Vancomycin HCl 500 mg/Dextrose 110 ml @ 110 mls/hr Q12HR@0200,1400 IVPB 12/14/19 14:00 12/19/19 13:59 12/15/19 12:53 Jabari Adams MD Dec 15, 2019 15:00
--- NOTE | 2019-12-15 15:20 | Cardiac Electrophysiology PN ---
Assessment/Plan Assessment/Plan 1. Respiratory failure with BNP of more than 19,000. Echo showed normal ejection fraction. LAsix DCed for metabolic alkalosis 2. 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 TSH is still elevated. 3. Respiratory failure. Patient is intubated on the vent on steroids and antibiotic 4. History of Parkinson disease. 5. Hyperlipidemia. YOSELYN RN Subjective Subjective Intubated on the vent off pressors.In SR. Objective Last 24 Hour Vital Signs Date Time Temp Pulse Resp B/P (MAP) Pulse Ox O2 Delivery O2 Flow Rate FiO2 12/15/19 15:00 75 15 118/47 (70) 97 12/15/19 14:00 80 15 123/48 (73) 97 12/15/19 13:50 35 12/15/19 13:00 85 18 128/53 (78) 99 12/15/19 12:00 98.5 81 19 139/50 (79) 100 12/15/19 12:00 35 12/15/19 12:00 Mechanical Ventilator 12/15/19 12:00 80 12/15/19 11:59 84 18 35 35 12/15/19 11:50 73 16 35 12/15/19 11:00 73 17 127/47 (73) 100 12/15/19 10:00 71 16 131/48 (75) 99 12/15/19 09:00 70 16 128/45 (72) 100 12/15/19 08:00 Mechanical Ventilator 12/15/19 08:00 35 12/15/19 08:00 68 12/15/19 08:00 99.0 68 16 126/43 (70) 100 12/15/19 07:22 72 17 35 12/15/19 07:00 70 16 122/44 (70) 100 12/15/19 06:30 69 15 12/15/19 06:00 69 15 116/44 (68) 99 12/15/19 05:30 68 15 123/44 (70) 100 12/15/19 05:00 69 15 118/44 (68) 100 12/15/19 04:30 74 17 127/49 (75) 99 12/15/19 04:00 35 12/15/19 04:00 Endotracheal Tube 12/15/19 04:00 98.5 70 17 127/42 (70) 100 12/15/19 03:30 70 16 123/42 (69) 99 12/15/19 03:07 70 17 35 12/15/19 03:02 69 12/15/19 03:00 70 17 123/41 (68) 99 12/15/19 02:30 69 17 120/43 (68) 100 12/15/19 02:00 70 16 121/43 (69) 99 12/15/19 01:30 71 18 126/45 (72) 100 12/15/19 01:00 71 16 119/43 (68) 98 12/15/19 00:00 99.3 72 18 116/42 (66) 98 12/15/19 00:00 Endotracheal Tube 12/14/19 23:49 72 17 35 12/14/19 23:30 71 15 113/42 (65) 99 12/14/19 23:04 73 12/14/19 23:00 73 17 119/43 (68) 98 12/14/19 22:30 74 17 127/47 (73) 100 12/14/19 22:00 74 17 119/46 (70) 99 12/14/19 21:30 74 17 124/44 (70) 99 12/14/19 21:00 75 18 129/44 (72) 99 12/14/19 20:30 76 18 129/44 (72) 99 12/14/19 20:00 Endotracheal Tube 12/14/19 20:00 35 12/14/19 20:00 98.6 75 18 125/47 (73) 100 12/14/19 19:54 74 17 35 12/14/19 19:32 74 12/14/19 19:00 72 18 129/48 (75) 100 12/14/19 18:00 70 17 123/46 (71) 100 12/14/19 17:00 98.9 73 17 115/44 (67) 100 12/14/19 16:00 35 12/14/19 16:00 68 12/14/19 16:00 Endotracheal Tube 12/14/19 16:00 68 16 122/43 (69) 100 12/14/19 15:30 72 17 35 Intake and Output 12/14/19 12/15/19 19:00 07:00 Intake Total 1325 ml 1310 ml Output Total 1970 ml 1450 ml Balance -645 ml -140 ml IV Total 1065 ml 710 ml Tube Feeding 210 ml 540 ml Other 50 ml 60 ml Output Urine Total 1970 ml 1450 ml Laboratory Tests Test 12/14/19 17:09 12/15/19 04:50 12/15/19 09:18 12/15/19 13:36 POC Whole Blood Glucose 108 MG/DL (74-106) H White Blood Count 5.8 K/UL (4.8-10.8) Red Blood Count 3.49 M/UL (4.20-5.40) L Hemoglobin 11.3 G/DL (12.0-16.0) L Hematocrit 34.9 % (37.0-47.0) L Mean Corpuscular Volume 100 FL (80-99) H Mean Corpuscular Hemoglobin 32.4 PG (27.0-31.0) H Mean Corpuscular Hemoglobin Concent 32.4 G/DL (32.0-36.0) Red Cell Distribution Width 12.9 % (11.6-14.8) Platelet Count 182 K/UL (150-450) Mean Platelet Volume 6.3 FL (6.5-10.1) L Neutrophils (%) (Auto) 70.6 % (45.0-75.0) Lymphocytes (%) (Auto) 19.0 % (20.0-45.0) L Monocytes (%) (Auto) 8.8 % (1.0-10.0) Eosinophils (%) (Auto) 1.1 % (0.0-3.0) Basophils (%) (Auto) 0.5 % (0.0-2.0) Sodium Level 139 MMOL/L (136-145) Potassium Level 2.9 MMOL/L (3.5-5.1) L Chloride Level 97 MMOL/L (98-107) L Carbon Dioxide Level 35 MMOL/L (21-32) H Anion Gap 8 mmol/L (5-15) Blood Urea Nitrogen 23 mg/dL (7-18) H Creatinine 1.4 MG/DL (0.55-1.30) H Estimat Glomerular Filtration Rate 36.2 mL/min (>60) Glucose Level 145 MG/DL (74-106) H Uric Acid 10.5 MG/DL (2.6-7.2) H Calcium Level 7.4 MG/DL (8.5-10.1) L Phosphorus Level 1.8 MG/DL (2.5-4.9) L Magnesium Level 1.8 MG/DL (1.8-2.4) Iron Level 32 ug/dL (50-175) L Total Iron Binding Capacity 327 ug/dL (250-450) Percent Iron Saturation 10 % (15-50) L Unsaturated Iron Binding 295 ug/dL (112-346) Total Bilirubin 0.8 MG/DL (0.2-1.0) Aspartate Amino Transf (AST/SGOT) 36 U/L (15-37) Alanine Aminotransferase (ALT/SGPT) 93 U/L (12-78) H Alkaline Phosphatase 51 U/L (46-116) Total Protein 6.2 G/DL (6.4-8.2) L Albumin 3.2 G/DL (3.4-5.0) L Globulin 3.0 g/dL Albumin/Globulin Ratio 1.1 (1.0-2.7) Vitamin B12 Level 889 PG/ML (193-986) Folate 18.1 NG/ML (8.6-58.9) Hepatitis A IgM Antibody Pending Hepatitis B Surface Antigen Pending Hepatitis B Core IgM Antibody Pending Hepatitis C Antibody Pending Arterial Blood pH 7.466 (7.350-7.450) 7.398 (7.350-7.450) Arterial Blood Partial Pressure CO2 48.2 mmHg (35.0-45.0) H 59.0 mmHg (35.0-45.0) *H Arterial Blood Partial Pressure O2 87.7 mmHg (75.0-100.0) 89.3 mmHg (75.0-100.0) Arterial Blood HCO3 34.0 mmol/L (22.0-26.0) H 35.6 mmol/L (22.0-26.0) H Arterial Blood Oxygen Saturation 96.4 % (95-100) 96.2 % (95-100) Arterial Blood Base Excess 9 (-2-2) H 8.9 (-2-2) H Raphael Test Positive Positive Microbiology Date/Time Source Procedure Growth Status 12/13/19 14:50 Nasopharynx Coronavirus COVID-19 PCR ([facility]AYME) - Final Complete 12/12/19 16:40 Sputum Gram Stain - Final Complete 12/12/19 16:40 Sputum Sputum Culture - Final NORMAL UPPER RESPIRATORY CHAIM PRESENT Complete Objective HEAD AND NECK: Shows she is orally intubated with no JVD. LUNGS: Coarse rhonchi. CARDIOVASCULAR: Shows regular S1 and S2 and tachycardic. ABDOMEN: Soft. EXTREMITIES: No pitting edema. Cameron Davies MD Dec 15, 2019 15:20
--- NOTE | 2019-12-15 16:00 | NUR ---
NURSE NOTES: Pt repositioned and oral care provided, afebrile at this time. No distress noted.
[2019-12-15] MEDS: Cefepime HCl 1 GM in D5W 55 ML IVPB SCH (16:18)
--- NOTE | 2019-12-15 17:10 | General Progress Note ---
Assessment/Plan Assessment/Plan: Assessment - Resp failure - r/o COVID (#1 negative) - COPD - HTN - Anemia - Abnormal LFT Recommendations - Continue TF - Elevate HOB - abx - follow labs - f/u hepatitis serologies - abd ultrasound next week Subjective Allergies: Coded Allergies: LITHIUM (Verified Allergy, Unknown, 02/07/19) Subjective Above noted d/w medical staff coordinator tolerating TF no significant residuals Objective Last 24 Hour Vital Signs Date Time Temp Pulse Resp B/P (MAP) Pulse Ox O2 Delivery O2 Flow Rate FiO2 12/15/19 16:00 74 12/15/19 16:00 98.6 88 19 134/53 (80) 100 12/15/19 16:00 Mechanical Ventilator 12/15/19 15:20 75 15 35 12/15/19 15:00 75 15 118/47 (70) 97 12/15/19 14:00 80 15 123/48 (73) 97 12/15/19 13:50 35 12/15/19 13:00 85 18 128/53 (78) 99 12/15/19 12:00 98.5 81 19 139/50 (79) 100 12/15/19 12:00 35 12/15/19 12:00 Mechanical Ventilator 12/15/19 12:00 80 12/15/19 11:59 84 18 35 35 12/15/19 11:50 73 16 35 12/15/19 11:00 73 17 127/47 (73) 100 12/15/19 10:00 71 16 131/48 (75) 99 12/15/19 09:00 70 16 128/45 (72) 100 12/15/19 08:00 Mechanical Ventilator 12/15/19 08:00 35 12/15/19 08:00 68 12/15/19 08:00 99.0 68 16 126/43 (70) 100 12/15/19 07:22 72 17 35 12/15/19 07:00 70 16 122/44 (70) 100 12/15/19 06:30 69 15 12/15/19 06:00 69 15 116/44 (68) 99 12/15/19 05:30 68 15 123/44 (70) 100 12/15/19 05:00 69 15 118/44 (68) 100 12/15/19 04:30 74 17 127/49 (75) 99 12/15/19 04:00 35 12/15/19 04:00 Endotracheal Tube 12/15/19 04:00 98.5 70 17 127/42 (70) 100 12/15/19 03:30 70 16 123/42 (69) 99 12/15/19 03:07 70 17 35 12/15/19 03:02 69 12/15/19 03:00 70 17 123/41 (68) 99 12/15/19 02:30 69 17 120/43 (68) 100 12/15/19 02:00 70 16 121/43 (69) 99 12/15/19 01:30 71 18 126/45 (72) 100 12/15/19 01:00 71 16 119/43 (68) 98 12/15/19 00:00 99.3 72 18 116/42 (66) 98 12/15/19 00:00 Endotracheal Tube 12/14/19 23:49 72 17 35 12/14/19 23:30 71 15 113/42 (65) 99 12/14/19 23:04 73 12/14/19 23:00 73 17 119/43 (68) 98 12/14/19 22:30 74 17 127/47 (73) 100 12/14/19 22:00 74 17 119/46 (70) 99 12/14/19 21:30 74 17 124/44 (70) 99 12/14/19 21:00 75 18 129/44 (72) 99 12/14/19 20:30 76 18 129/44 (72) 99 12/14/19 20:00 Endotracheal Tube 12/14/19 20:00 35 12/14/19 20:00 98.6 75 18 125/47 (73) 100 12/14/19 19:54 74 17 35 12/14/19 19:32 74 12/14/19 19:00 72 18 129/48 (75) 100 12/14/19 18:00 70 17 123/46 (71) 100 Intake and Output 12/14/19 12/15/19 19:00 07:00 Intake Total 1325 ml 1310 ml Output Total 1970 ml 1450 ml Balance -645 ml -140 ml IV Total 1065 ml 710 ml Tube Feeding 210 ml 540 ml Other 50 ml 60 ml Output Urine Total 1970 ml 1450 ml Laboratory Tests 12/14/19 17:09: POC Whole Blood Glucose 108H 12/15/19 04:50: White Blood Count 5.8, Red Blood Count 3.49L, Hemoglobin 11.3L, Hematocrit 34.9L , Mean Corpuscular Volume 100H, Mean Corpuscular Hemoglobin 32.4H, Mean Corpuscular Hemoglobin Concent 32.4, Red Cell Distribution Width 12.9, Platelet Count 182, Mean Platelet Volume 6.3L, Neutrophils (%) (Auto) 70.6, Lymphocytes ( %) (Auto) 19.0L, Monocytes (%) (Auto) 8.8, Eosinophils (%) (Auto) 1.1, Basophils (%) (Auto) 0.5, Sodium Level 139, Potassium Level 2.9L, Chloride Level 97L, Carbon Dioxide Level 35H, Anion Gap 8, Blood Urea Nitrogen 23H, Creatinine 1.4H, Estimat Glomerular Filtration Rate 36.2, Glucose Level 145H, Uric Acid 10.5H, Calcium Level 7.4L, Phosphorus Level 1.8L, Magnesium Level 1.8 , Iron Level 32L, Total Iron Binding Capacity 327, Percent Iron Saturation 10L, Unsaturated Iron Binding 295, Total Bilirubin 0.8, Aspartate Amino Transf (AST/ SGOT) 36, Alanine Aminotransferase (ALT/SGPT) 93H, Alkaline Phosphatase 51, Total Protein 6.2L, Albumin 3.2L, Globulin 3.0, Albumin/Globulin Ratio 1.1, Vitamin B12 Level 889, Folate 18.1, Hepatitis A IgM Antibody [Pending], Hepatitis B Surface Antigen [Pending], Hepatitis B Core IgM Antibody [Pending], Hepatitis C Antibody [Pending] 12/15/19 09:18: Arterial Blood pH 7.466H, Arterial Blood Partial Pressure CO2 48.2H, Arterial Blood Partial Pressure O2 87.7, Arterial Blood HCO3 34.0H, Arterial Blood Oxygen Saturation 96.4, Arterial Blood Base Excess 9H, Raphael Test Positive 12/15/19 13:36: Arterial Blood pH 7.398, Arterial Blood Partial Pressure CO2 59.0*H, Arterial Blood Partial Pressure O2 89.3, Arterial Blood HCO3 35.6H, Arterial Blood Oxygen Saturation 96.2, Arterial Blood Base Excess 8.9H, Raphael Test Positive Height (Feet): 5 Height (Inches): 7.00 Weight (Pounds): 211 Objective Elderly woman on vent NAD appears comfortable Khorrami,Payman MD Dec 15, 2019 17:10
[2019-12-15] MEDS: Amantadine 100mg cap GT SCH (17:45)
[2019-12-15] MEDS: Docusate 100mg/10ml Liq NG SCH (17:45)
[2019-12-15] MEDS: Os-Cal (Oyster Shell) 500mg tab GT SCH (17:45)
--- NOTE | 2019-12-15 18:00 | NUR ---
NURSE NOTES: Pt repositioned, no distress noted. Will continue to monitor.
--- NOTE | 2019-12-15 19:35 | NUR ---
NURSE NOTES: Received report from Yessy ROJO
--- NOTE | 2019-12-15 19:37 | NUR ---
HAND-OFF: Report given to DARREL Estrada.
--- NOTE | 2019-12-15 20:00 | NUR ---
NURSE NOTES: Patient in bed awake, alert to name. Provided with TV therapy. Orally intubated; ETT 7.5/ 24cm lip line to vent settings AC:15, TV:450, FiO2:35%, PEEP:5, O2 saturation:100%. Patient with OGT feeding Vital AF running at 50ml/hr . HOB elevated. Ace intact and draining. IV line intact infusing NS at 50cc/hr. Reality orientation provided and patient teaching provided not to pull out tubing with poor understanding. Bilateral wrist restraints on. ROM and skin assessed. Safety measures on; bed low, locked and alarm is on. Contact isolation maintained and observed. PUI Covid 19 negative x3. Temp 98.6 Axillary. Call light within easy reach. No s/s of hypo/hyperglycemia. will continue plan of care.
--- NOTE | 2019-12-15 22:00 | NUR ---
NURSE NOTES: Turned and repositioned patient in bed. Oral care provided. On P200 mattress for wound management. frequent visual checks continued. will continue plan of care.
--- NOTE | 2019-12-15 23:43 | General Progress Note ---
Assessment/Plan Problem List: (1) Dyspnea ICD Codes: R06.00 - Dyspnea, unspecified SNOMED: 874049333 (2) Hypothyroidism ICD Codes: E03.9 - Hypothyroidism, unspecified SNOMED: 21693902 (3) Obese ICD Codes: E66.9 - Obesity, unspecified SNOMED: 506143255, 594648352 (4) Psychosis ICD Codes: F29 - Unspecified psychosis not due to a substance or known physiological condition SNOMED: 09643794 (5) Respiratory failure ICD Codes: J96.90 - Respiratory failure, unspecified, unspecified whether with hypoxia or hypercapnia SNOMED: 239547969 (6) Respiratory distress ICD Codes: R06.03 - Acute respiratory distress SNOMED: 488969438 (7) Dyspnea ICD Codes: R06.00 - Dyspnea, unspecified SNOMED: 179597381 (8) Pneumonia ICD Codes: J18.9 - Pneumonia, unspecified organism SNOMED: 601672423 (9) Acute and chronic respiratory failure ICD Codes: J96.20 - Acute and chronic respiratory failure, unspecified whether with hypoxia or hypercapnia SNOMED: 60513852 (10) Diabetes mellitus type 2 in nonobese ICD Codes: E11.9 - Type 2 diabetes mellitus without complications SNOMED: 895821351 (11) CHF (congestive heart failure) ICD Codes: I50.9 - Heart failure, unspecified SNOMED: 05253800 Qualifiers: Qualified Codes: I50.9 - Heart failure, unspecified (12) Hypoxia ICD Codes: R09.02 - Hypoxemia SNOMED: 039427770 (13) Elevated d-dimer ICD Codes: R79.89 - Other specified abnormal findings of blood chemistry SNOMED: 444390141 (14) Schizophrenia ICD Codes: F20.9 - Schizophrenia, unspecified SNOMED: 04595730 (15) Parkinson disease ICD Codes: G20 - Parkinson's disease SNOMED: 15427578 Status: progressing Assessment/Plan: check sugar afebrile lethargic pleural effusion nac sepsis pna covid negative Subjective ROS Limited/Unobtainable: Yes Allergies: Coded Allergies: LITHIUM (Verified Allergy, Unknown, 02/07/19) Objective Last 24 Hour Vital Signs Date Time Temp Pulse Resp B/P (MAP) Pulse Ox O2 Delivery O2 Flow Rate FiO2 12/15/19 21:00 75 16 114/62 (79) 98 12/15/19 20:30 77 17 116/45 (68) 99 12/15/19 20:00 35 12/15/19 20:00 98.4 78 16 123/48 (73) 99 12/15/19 20:00 Mechanical Ventilator 12/15/19 19:30 79 17 35 12/15/19 19:00 78 15 116/46 (69) 97 12/15/19 18:00 78 20 117/90 (99) 99 12/15/19 17:00 79 15 123/50 (74) 97 12/15/19 16:00 74 12/15/19 16:00 98.6 88 19 134/53 (80) 100 12/15/19 16:00 Mechanical Ventilator 12/15/19 15:20 75 15 35 12/15/19 15:00 75 15 118/47 (70) 97 12/15/19 14:00 80 15 123/48 (73) 97 12/15/19 13:50 35 12/15/19 13:00 85 18 128/53 (78) 99 12/15/19 12:00 98.5 81 19 139/50 (79) 100 12/15/19 12:00 35 12/15/19 12:00 Mechanical Ventilator 12/15/19 12:00 80 12/15/19 11:59 84 18 35 35 12/15/19 11:50 73 16 35 12/15/19 11:00 73 17 127/47 (73) 100 12/15/19 10:00 71 16 131/48 (75) 99 12/15/19 09:00 70 16 128/45 (72) 100 12/15/19 08:00 Mechanical Ventilator 12/15/19 08:00 35 12/15/19 08:00 68 12/15/19 08:00 99.0 68 16 126/43 (70) 100 12/15/19 07:22 72 17 35 12/15/19 07:00 70 16 122/44 (70) 100 12/15/19 06:30 69 15 12/15/19 06:00 69 15 116/44 (68) 99 12/15/19 05:30 68 15 123/44 (70) 100 12/15/19 05:00 69 15 118/44 (68) 100 12/15/19 04:30 74 17 127/49 (75) 99 12/15/19 04:00 35 12/15/19 04:00 Endotracheal Tube 12/15/19 04:00 98.5 70 17 127/42 (70) 100 12/15/19 03:30 70 16 123/42 (69) 99 12/15/19 03:07 70 17 35 12/15/19 03:02 69 12/15/19 03:00 70 17 123/41 (68) 99 12/15/19 02:30 69 17 120/43 (68) 100 12/15/19 02:00 70 16 121/43 (69) 99 12/15/19 01:30 71 18 126/45 (72) 100 12/15/19 01:00 71 16 119/43 (68) 98 12/15/19 00:00 99.3 72 18 116/42 (66) 98 12/15/19 00:00 Endotracheal Tube 12/14/19 23:49 72 17 35 Intake and Output 12/14/19 12/15/19 19:00 07:00 Intake Total 1325 ml 1310 ml Output Total 1970 ml 1450 ml Balance -645 ml -140 ml IV Total 1065 ml 710 ml Tube Feeding 210 ml 540 ml Other 50 ml 60 ml Output Urine Total 1970 ml 1450 ml Laboratory Tests 12/15/19 04:50: White Blood Count 5.8, Red Blood Count 3.49L, Hemoglobin 11.3L, Hematocrit 34.9L , Mean Corpuscular Volume 100H, Mean Corpuscular Hemoglobin 32.4H, Mean Corpuscular Hemoglobin Concent 32.4, Red Cell Distribution Width 12.9, Platelet Count 182, Mean Platelet Volume 6.3L, Neutrophils (%) (Auto) 70.6, Lymphocytes ( %) (Auto) 19.0L, Monocytes (%) (Auto) 8.8, Eosinophils (%) (Auto) 1.1, Basophils (%) (Auto) 0.5, Sodium Level 139, Potassium Level 2.9L, Chloride Level 97L, Carbon Dioxide Level 35H, Anion Gap 8, Blood Urea Nitrogen 23H, Creatinine 1.4H, Estimat Glomerular Filtration Rate 36.2, Glucose Level 145H, Uric Acid 10.5H, Calcium Level 7.4L, Phosphorus Level 1.8L, Magnesium Level 1.8 , Iron Level 32L, Total Iron Binding Capacity 327, Percent Iron Saturation 10L, Unsaturated Iron Binding 295, Total Bilirubin 0.8, Aspartate Amino Transf (AST/ SGOT) 36, Alanine Aminotransferase (ALT/SGPT) 93H, Alkaline Phosphatase 51, Total Protein 6.2L, Albumin 3.2L, Globulin 3.0, Albumin/Globulin Ratio 1.1, Vitamin B12 Level 889, Folate 18.1, Hepatitis A IgM Antibody [Pending], Hepatitis B Surface Antigen [Pending], Hepatitis B Core IgM Antibody [Pending], Hepatitis C Antibody [Pending] 12/15/19 09:18: Arterial Blood pH 7.466H, Arterial Blood Partial Pressure CO2 48.2H, Arterial Blood Partial Pressure O2 87.7, Arterial Blood HCO3 34.0H, Arterial Blood Oxygen Saturation 96.4, Arterial Blood Base Excess 9H, Raphael Test Positive 12/15/19 13:36: Arterial Blood pH 7.398, Arterial Blood Partial Pressure CO2 59.0*H, Arterial Blood Partial Pressure O2 89.3, Arterial Blood HCO3 35.6H, Arterial Blood Oxygen Saturation 96.2, Arterial Blood Base Excess 8.9H, Raphael Test Positive Height (Feet): 5 Height (Inches): 7.00 Weight (Pounds): 211 Dani Perera MD Dec 15, 2019 23:43
[2019-12-16] VITALS (27 sets, daily range): BP systolic 108–131; BP diastolic 42–75
--- NOTE | 2019-12-16 | NUR ---
NURSE NOTES: Patient sleeping comfortably in bed. no s/s of acute distress noted. no fever. no diarrhea. no moaning no facial grimaces. will continue plan of care.
--- NOTE | 2019-12-16 02:00 | NUR ---
NURSE NOTES: Bed bath given tolerated well.
[2019-12-16] MEDS ORDERED: Vancomycin 750mg/D5W 275ml IVPB SCH ×2 (03:00)
--- NOTE | 2019-12-16 04:00 | NUR ---
NURSE NOTES: Patient in bed sleeping comfortably. HOB elevated. Ace intact and draining. IV line intact infusing NS at 50cc/hr. Reality orientation provided and patient teaching provided not to pull out tubing with poor understanding. Bilateral wrist restraints on. ROM and skin assessed. Safety measures on; bed low, locked and alarm is on. Contact isolation maintained and observed. PUI Covid 19 negative x3. Call light within easy reach. No s/s of hypo/hyperglycemia. will continue plan of care.
[2019-12-16 05:42] LABS: BASOPHILS % (AUTO) 0.4 % (0.0-2.0); EOSINOPHILS % (AUTO) 2.5 % (0.0-3.0); HEMATOCRIT 35.4 % (37.0-47.0); LYMPHOCYTES % (AUTO) 22.6 % (20.0-45.0); MEAN CORPUSCULAR VOLUME 103 FL (80-99); MONOCYTES % (AUTO) 8.7 % (1.0-10.0); NEUTROPHILS % (AUTO) 65.8 % (45.0-75.0); PLATELET COUNT 169 K/UL (150-450); RED BLOOD COUNT 3.43 M/UL (4.20-5.40); RED CELL DISTRIBUTION WIDTH 13.3 % (11.6-14.8); WHITE BLOOD COUNT 5.4 K/UL (4.8-10.8)
[2019-12-16] MEDS: NovoLOG Insulin Flexpen SUBQ SCH ×4 (05:50→17:39)
--- NOTE | 2019-12-16 06:00 | NUR ---
NURSE NOTES: Patient blood glucose 135mg/dl no coverage.
[2019-12-16 06:09] LABS: ANION GAP 7 mmol/L (5-15); BLOOD UREA NITROGEN 19 mg/dL (7-18); CALCIUM 7.5 MG/DL (8.5-10.1); CARBON DIOXIDE 36 MMOL/L (21-32); CHLORIDE 102 MMOL/L (98-107); CREATININE 1.1 MG/DL (0.55-1.30); SODIUM 144 MMOL/L (136-145)
--- NOTE | 2019-12-16 07:00 | NUR ---
NURSE NOTES: Received report from DARREL Estrada. Will continue plan of care
--- NOTE | 2019-12-16 07:05 | NUR ---
HAND-OFF: Report given to Cici ROJO.
--- NOTE | 2019-12-16 07:38 | NUR ---
NURSE NOTES: Patient is observed in bed, eyes closed, appears to be sleeping. Patient is orally intubated with vent settings AC 15, TV 450, FiO2 35% and PEEP 5. Patient is saturating 100% at this time. Patient has OGT in place with TF Vital AF 1.2 at 50ml/hr, HOB is elevated to avoid aspiration. Patient has left AC 20g; patent and asymptomatic with IV fluids NS 50ml/hr and right wrist 20g intact and patent. Ace catheter noted in place, draining to gravity. Patient has bilateral soft wrist restraints in place to avoid self extubation. No s/s of distress at this time. Patient remains on droplet isolation, will continue assessment and will continue plan of care.
[2019-12-16] MEDS: Aspirin EC 325mg tab ORAL SCH (08:12)
[2019-12-16] MEDS: Os-Cal (Oyster Shell) 500mg tab GT SCH ×3 (08:12→17:10)
[2019-12-16] MEDS: Docusate 100mg/10ml Liq NG SCH ×2 (08:13→17:10)
[2019-12-16] MEDS: Phospha 250 Neutral tab GT SCH ×3 (08:13→17:09)
[2019-12-16] MEDS: Pantoprazole Inj IVP SCH ×2 (08:13→21:19)
[2019-12-16] MEDS: Depakote 125mg Sprinkles NG SCH ×2 (08:13→21:20)
[2019-12-16] MEDS: Amantadine 100mg cap GT SCH ×2 (08:13→17:10)
--- NOTE | 2019-12-16 08:15 | NUR ---
NURSE NOTES: Pt remains in bed, asleep, but arousable to tactile stimuli, able to follow simple commands and is oriented to name. court monitor shows SR with 1st degree HB. Bilateral radial and dorsalis pedis pulses strong and palpable. Pt remains orally intubated, tolerating vent settings. RT Raiza attempted to wean patient. Abd is round, soft, and non-tender with active bowel sounds to all quadrants. OGT remains in place, tolerting TF, no residual gastric residual. Ace catheter noted with clear, yellow urine output draining to gravity. PIV on LAC 20g IV infusing NS at 50 ml/hr and right wrist 20g IV saline locked. Bilateral soft wrist restraints remains on, released and reapplied after assessment: bilateral radial pulses palpable, skin is intact on bilateral wrists. Bilateral lower extremities noted with SCD's. Safety precautions in place; Bed is locked, alarmed, and in lowest position, side are rails up x3, call light left within reach. Left patient clean and dry. All scheduled medications administered. All needs attended to. Will continue to monitor.
[2019-12-16] MEDS ORDERED: NS 275ml ONE (08:29)
--- NOTE | 2019-12-16 10:09 | Pulmonology Progress Note ---
Subjective ROS Limited/Unobtainable: Yes Interval Events: Remains intubated Constitutional: Denies: fever HEENT: Repors: no symptoms Respiratory: Reports: no symptoms Cardiovascular: Reports: no symptoms Gastrointestinal/Abdominal: Reports: no symptoms Genitourinary: Reports: no symptoms Allergies: Coded Allergies: LITHIUM (Verified Allergy, Unknown, 02/07/19) Objective Last 24 Hour Vital Signs Date Time Temp Pulse Resp B/P (MAP) Pulse Ox O2 Delivery O2 Flow Rate FiO2 12/16/19 09:00 75 16 126/49 (74) 99 12/16/19 08:00 35 12/16/19 08:00 98.5 85 22 131/50 (77) 100 12/16/19 08:00 Mechanical Ventilator 12/16/19 07:05 76 15 35 12/16/19 07:00 77 15 119/46 (70) 100 12/16/19 06:30 78 15 12/16/19 06:00 75 15 114/44 (67) 99 12/16/19 05:00 74 15 110/42 (64) 100 12/16/19 04:30 73 15 108/75 (86) 100 12/16/19 04:00 76 12/16/19 04:00 98.8 75 15 117/45 (69) 100 12/16/19 04:00 Mechanical Ventilator 12/16/19 04:00 35 12/16/19 03:30 76 16 119/47 (71) 99 12/16/19 03:15 72 15 35 12/16/19 03:00 78 17 114/49 (70) 98 12/16/19 02:00 77 15 110/42 (64) 98 12/16/19 01:00 75 15 123/46 (71) 100 12/16/19 00:00 Mechanical Ventilator 12/16/19 00:00 75 12/16/19 00:00 98.8 74 15 120/46 (70) 99 12/16/19 00:00 35 12/15/19 23:59 74 15 35 12/15/19 23:30 75 15 125/47 (73) 99 12/15/19 23:00 76 16 122/46 (71) 99 12/15/19 22:00 73 15 119/50 (73) 99 12/15/19 21:00 75 16 114/62 (79) 98 12/15/19 20:30 77 17 116/45 (68) 99 12/15/19 20:00 35 12/15/19 20:00 98.4 78 16 123/48 (73) 99 12/15/19 20:00 Mechanical Ventilator 12/15/19 20:00 77 12/15/19 19:30 79 17 35 12/15/19 19:00 78 15 116/46 (69) 97 12/15/19 18:00 78 20 117/90 (99) 99 12/15/19 17:00 79 15 123/50 (74) 97 12/15/19 16:00 74 12/15/19 16:00 98.6 88 19 134/53 (80) 100 12/15/19 16:00 Mechanical Ventilator 12/15/19 15:20 75 15 35 12/15/19 15:00 75 15 118/47 (70) 97 12/15/19 14:00 80 15 123/48 (73) 97 12/15/19 13:50 35 12/15/19 13:00 85 18 128/53 (78) 99 12/15/19 12:00 98.5 81 19 139/50 (79) 100 12/15/19 12:00 35 12/15/19 12:00 Mechanical Ventilator 12/15/19 12:00 80 12/15/19 11:59 84 18 35 35 12/15/19 11:50 73 16 35 12/15/19 11:00 73 17 127/47 (73) 100 Intake and Output 12/15/19 12/16/19 19:00 07:00 Intake Total 1820 ml 1660.000 ml Output Total 2450 ml 500 ml Balance -630 ml 1160.000 ml Intake Free Water 30 ml 200 ml IV Total 1190 ml 800.000 ml Tube Feeding 600 ml 600 ml Other 60 ml Output Urine Total 2450 ml 500 ml General Appearance: no acute distress Respiratory: chest wall non-tender, lungs clear Cardiovascular: normal peripheral pulses, normal rate Abdomen: normal bowel sounds Microbiology Date/Time Source Procedure Growth Status 12/13/19 14:50 Nasopharynx Coronavirus COVID-19 PCR ([facility]) - Final Complete Laboratory Tests 12/15/19 13:36: Arterial Blood pH 7.398, Arterial Blood Partial Pressure CO2 59.0*H, Arterial Blood Partial Pressure O2 89.3, Arterial Blood HCO3 35.6H, Arterial Blood Oxygen Saturation 96.2, Arterial Blood Base Excess 8.9H, Raphael Test Positive 12/16/19 00:14: POC Whole Blood Glucose 103 12/16/19 01:20: Vancomycin Level Trough 8.3 12/16/19 04:08: White Blood Count 5.4, Red Blood Count 3.43L, Hemoglobin 11.0L, Hematocrit 35.4L , Mean Corpuscular Volume 103H, Mean Corpuscular Hemoglobin 32.0H, Mean Corpuscular Hemoglobin Concent 31.0L, Red Cell Distribution Width 13.3, Platelet Count 169, Mean Platelet Volume 6.0L, Neutrophils (%) (Auto) 65.8, Lymphocytes (%) (Auto) 22.6, Monocytes (%) (Auto) 8.7, Eosinophils (%) (Auto) 2.5, Basophils (%) (Auto) 0.4, Sodium Level 144, Potassium Level 4.0, Chloride Level 102, Carbon Dioxide Level 36H, Anion Gap 7, Blood Urea Nitrogen 19H, Creatinine 1.1, Estimat Glomerular Filtration Rate 47.8, Glucose Level 90, Calcium Level 7.5L Current Medications Medications (Trade) Dose Ordered Sig/Angie Route PRN Reason Start Time Stop Time Status Last Admin Dose Admin Acetaminophen (Tylenol) 650 mg Q6H PRN ORAL Mild Pain (Pain Scale 1-3) 12/12/19 12:30 01/11/20 12:29 Acetaminophen (Tylenol) 1,000 mg Q6H PRN ORAL MODERATE PAIN 12/12/19 12:30 01/11/20 12:29 Amantadine HCl (Symmetrel) 100 mg TWICE A DAY GT 12/15/19 18:00 01/11/20 08:59 12/16/19 08:13 Aspirin (Ecotrin) 325 mg DAILY ORAL 12/13/19 09:00 01/26/20 08:59 12/16/19 08:12 Atorvastatin Calcium (Lipitor) 10 mg BEDTIME GT 12/15/19 21:00 03/11/20 20:59 12/15/19 20:32 Calcium Carbonate (Os-Octavio) 1,250 mg THREE TIMES A DAY GT 12/15/19 18:00 03/11/20 09:59 12/16/19 08:12 Cefepime HCl 1 gm/ Dextrose 55 ml @ 110 mls/hr Q24H IVPB 12/12/19 16:00 12/19/19 15:59 12/15/19 16:18 Clonidine HCl (Catapres Tab) 0.1 mg Q6H PRN GT For high BP over 160 systolic 12/15/19 16:30 03/11/20 12:30 Dextrose (Dextrose 50%) 25 ml Q30M PRN IV Hypoglycemia 12/13/19 07:15 03/12/20 07:14 Dextrose (Dextrose 50%) 50 ml Q30M PRN IV Hypoglycemia 12/13/19 07:15 03/12/20 07:14 Divalproex Sodium (Depakote Sprinkles) 250 mg EVERY 12 HOURS NG 12/13/19 21:00 01/12/20 20:59 12/16/19 08:13 Docusate Sodium (Colace) 100 mg TWICE A DAY NG 12/15/19 18:00 01/14/20 17:59 12/16/19 08:13 Insulin Aspart (NovoLOG) EVERY 6 HOURS SUBQ 12/13/19 12:00 03/12/20 11:59 12/15/19 05:42 Levothyroxine Sodium (Synthroid) 75 mcg DAILY IV 12/13/19 09:00 01/11/20 09:29 12/16/19 09:02 Lorazepam (Ativan) 1 mg Q6H PRN GT For Anxiety 12/15/19 16:30 12/19/19 12:30 Nitroglycerin (Ntg) 0.4 mg Q5MIN X 3 DOSES PRN SL CHEST PAIN 12/12/19 12:00 01/10/20 21:44 Olanzapine (ZyPREXA) 5 mg BID GT 12/15/19 18:00 01/26/20 08:59 12/16/19 08:12 Pantoprazole (Protonix) 40 mg EVERY 12 HOURS IVP 12/14/19 09:00 01/13/20 08:59 12/16/19 08:13 Phosphorus (Phospha 250 Neutral) 250 mg THREE TIMES A DAY GT 12/15/19 09:00 01/14/20 08:59 12/16/19 08:13 Potassium Chloride (K-Dur) 40 meq TWICE A DAY NG 12/14/19 10:30 03/13/20 10:29 12/16/19 08:14 Sodium Chloride 1,000 ml @ 50 mls/hr Q20H IV 12/12/19 12:30 01/11/20 12:29 12/15/19 20:32 Vancomycin HCl (Vanco pharmacy to dose) 1 ea DAILY PRN MISC Per rx protocol 12/14/19 12:15 01/13/20 12:14 Vancomycin HCl 750 mg/Dextrose 275 ml @ 183.333 mls/hr Q12H IVPB 12/16/19 03:00 12/21/19 02:59 12/16/19 03:30 Assessment/Plan Assessment/Plan IMPRESSION: 1. Respiratory failure. 2. Has healthcare-associated pneumonia; is negative for COVID-19. 3. Psych disorder. 4. Obesity. 5. Hypertension. DISCUSSION: Continue broad spectrum antibiotics. On propofol. I will manage respirator, currently on AC mode 50% FiO2 and PEEP of 5. Has negative COVID-19 swab. I will follow carefully. Attempt weaning Off Lasix given metabolic alkalosis Emerita Fan Omar Syed MD Dec 16, 2019 10:09
--- NOTE | 2019-12-16 10:10 | NUR ---
NURSE NOTES: Patient remains asleep; RT at bedside attempted to wean patient but stated patient is too drowsy at this time. Dr Myers present in the unit, notified and made aware; also updated on patient's condition. New orders noted on the system. Will continue to monitor patient.
--- NOTE | 2019-12-16 11:35 | NUR ---
NURSE NOTES: Dr Briggs present in the unit, notified and made aware patient is negative for Covid x2 per lab results. Ordered to d/c droplet isolation. Will carry out and will continue to observe and practice contact isolation.
--- NOTE | 2019-12-16 11:38 | Infectious Diseases Prog Note ---
Assessment/Plan Assessment/Plan IMPRESSION: COPD exacerbation, Pneumonia, COID19 X 2: negative Acute respiratory failure with hypercapnia Dementia, Parkinson, Mitral valve regurgitation, Hypertension, Hypothyroidism. Hypokalemia RECOMMENDATION: Continue IV cefepime. Discontinue IV Vancomycin Discontinue Droplet isolation Subjective ROS Limited/Unobtainable: Yes Constitutional: Denies: fever Respiratory: Reports: other - on weaning process Allergies: Coded Allergies: LITHIUM (Verified Allergy, Unknown, 02/07/19) Objective Last 24 Hour Vital Signs Date Time Temp Pulse Resp B/P (MAP) Pulse Ox O2 Delivery O2 Flow Rate FiO2 12/16/19 11:27 80 17 35 12/16/19 11:00 74 16 118/47 (70) 100 12/16/19 10:00 75 16 123/47 (72) 99 12/16/19 09:00 75 16 126/49 (74) 99 12/16/19 08:28 74 12/16/19 08:00 35 12/16/19 08:00 98.5 85 22 131/50 (77) 100 12/16/19 08:00 Mechanical Ventilator 12/16/19 07:05 76 15 35 12/16/19 07:00 77 15 119/46 (70) 100 12/16/19 06:30 78 15 12/16/19 06:00 75 15 114/44 (67) 99 12/16/19 05:00 74 15 110/42 (64) 100 12/16/19 04:30 73 15 108/75 (86) 100 12/16/19 04:00 76 12/16/19 04:00 98.8 75 15 117/45 (69) 100 12/16/19 04:00 Mechanical Ventilator 12/16/19 04:00 35 12/16/19 03:30 76 16 119/47 (71) 99 12/16/19 03:15 72 15 35 12/16/19 03:00 78 17 114/49 (70) 98 12/16/19 02:00 77 15 110/42 (64) 98 12/16/19 01:00 75 15 123/46 (71) 100 12/16/19 00:00 Mechanical Ventilator 12/16/19 00:00 75 12/16/19 00:00 98.8 74 15 120/46 (70) 99 12/16/19 00:00 35 12/15/19 23:59 74 15 35 12/15/19 23:30 75 15 125/47 (73) 99 12/15/19 23:00 76 16 122/46 (71) 99 12/15/19 22:00 73 15 119/50 (73) 99 12/15/19 21:00 75 16 114/62 (79) 98 12/15/19 20:30 77 17 116/45 (68) 99 12/15/19 20:00 35 12/15/19 20:00 98.4 78 16 123/48 (73) 99 12/15/19 20:00 Mechanical Ventilator 12/15/19 20:00 77 12/15/19 19:30 79 17 35 12/15/19 19:00 78 15 116/46 (69) 97 12/15/19 18:00 78 20 117/90 (99) 99 12/15/19 17:00 79 15 123/50 (74) 97 12/15/19 16:00 74 12/15/19 16:00 98.6 88 19 134/53 (80) 100 12/15/19 16:00 Mechanical Ventilator 12/15/19 15:20 75 15 35 12/15/19 15:00 75 15 118/47 (70) 97 12/15/19 14:00 80 15 123/48 (73) 97 12/15/19 13:50 35 12/15/19 13:00 85 18 128/53 (78) 99 12/15/19 12:00 98.5 81 19 139/50 (79) 100 12/15/19 12:00 35 12/15/19 12:00 Mechanical Ventilator 12/15/19 12:00 80 12/15/19 11:59 84 18 35 35 12/15/19 11:50 73 16 35 Height (Feet): 5 Height (Inches): 7.00 Weight (Pounds): 212 HEENT: other - orally intubated Respiratory/Chest: decreased breath sounds, other - on ventilator Cardiovascular: normal rate Abdomen: soft, non tender, other - orogastric tube Extremities: no edema Neurologic/Psychiatric: other - opens eyes Microbiology Date/Time Source Procedure Growth Status 12/13/19 14:50 Nasopharynx Coronavirus COVID-19 PCR ([facility]) - Final Complete Laboratory Tests Test 12/15/19 13:36 12/16/19 00:14 12/16/19 01:20 12/16/19 04:08 Arterial Blood pH 7.398 (7.350-7.450) Arterial Blood Partial Pressure CO2 59.0 mmHg (35.0-45.0) *H Arterial Blood Partial Pressure O2 89.3 mmHg (75.0-100.0) Arterial Blood HCO3 35.6 mmol/L (22.0-26.0) H Arterial Blood Oxygen Saturation 96.2 % (95-100) Arterial Blood Base Excess 8.9 (-2-2) H Raphael Test Positive POC Whole Blood Glucose 103 MG/DL (74-106) Vancomycin Level Trough 8.3 ug/mL (5.0-12.0) White Blood Count 5.4 K/UL (4.8-10.8) Red Blood Count 3.43 M/UL (4.20-5.40) L Hemoglobin 11.0 G/DL (12.0-16.0) L Hematocrit 35.4 % (37.0-47.0) L Mean Corpuscular Volume 103 FL (80-99) H Mean Corpuscular Hemoglobin 32.0 PG (27.0-31.0) H Mean Corpuscular Hemoglobin Concent 31.0 G/DL (32.0-36.0) L Red Cell Distribution Width 13.3 % (11.6-14.8) Platelet Count 169 K/UL (150-450) Mean Platelet Volume 6.0 FL (6.5-10.1) L Neutrophils (%) (Auto) 65.8 % (45.0-75.0) Lymphocytes (%) (Auto) 22.6 % (20.0-45.0) Monocytes (%) (Auto) 8.7 % (1.0-10.0) Eosinophils (%) (Auto) 2.5 % (0.0-3.0) Basophils (%) (Auto) 0.4 % (0.0-2.0) Sodium Level 144 MMOL/L (136-145) Potassium Level 4.0 MMOL/L (3.5-5.1) Chloride Level 102 MMOL/L (98-107) Carbon Dioxide Level 36 MMOL/L (21-32) H Anion Gap 7 mmol/L (5-15) Blood Urea Nitrogen 19 mg/dL (7-18) H Creatinine 1.1 MG/DL (0.55-1.30) Estimat Glomerular Filtration Rate 47.8 mL/min (>60) Glucose Level 90 MG/DL (74-106) Calcium Level 7.5 MG/DL (8.5-10.1) L Test 12/16/19 09:52 Arterial Blood pH 7.428 (7.350-7.450) Arterial Blood Partial Pressure CO2 50.8 mmHg (35.0-45.0) H Arterial Blood Partial Pressure O2 90.5 mmHg (75.0-100.0) Arterial Blood HCO3 32.8 mmol/L (22.0-26.0) H Arterial Blood Oxygen Saturation 96.6 % (95-100) Arterial Blood Base Excess 7.3 (-2-2) H Raphael Test Positive Current Medications Medications (Trade) Dose Ordered Sig/Angie Route PRN Reason Start Time Stop Time Status Last Admin Dose Admin Acetaminophen (Tylenol) 650 mg Q6H PRN ORAL Mild Pain (Pain Scale 1-3) 12/12/19 12:30 01/11/20 12:29 Acetaminophen (Tylenol) 1,000 mg Q6H PRN ORAL MODERATE PAIN 12/12/19 12:30 01/11/20 12:29 Amantadine HCl (Symmetrel) 100 mg TWICE A DAY GT 12/15/19 18:00 01/11/20 08:59 12/16/19 08:13 Aspirin (Ecotrin) 325 mg DAILY ORAL 12/13/19 09:00 01/26/20 08:59 12/16/19 08:12 Atorvastatin Calcium (Lipitor) 10 mg BEDTIME GT 12/15/19 21:00 03/11/20 20:59 12/15/19 20:32 Calcium Carbonate (Os-Octavio) 1,250 mg THREE TIMES A DAY GT 12/15/19 18:00 03/11/20 09:59 12/16/19 08:12 Cefepime HCl 1 gm/ Dextrose 55 ml @ 110 mls/hr Q24H IVPB 12/12/19 16:00 12/19/19 15:59 12/15/19 16:18 Clonidine HCl (Catapres Tab) 0.1 mg Q6H PRN GT For high BP over 160 systolic 12/15/19 16:30 03/11/20 12:30 Dextrose (Dextrose 50%) 25 ml Q30M PRN IV Hypoglycemia 12/13/19 07:15 03/12/20 07:14 Dextrose (Dextrose 50%) 50 ml Q30M PRN IV Hypoglycemia 12/13/19 07:15 03/12/20 07:14 Divalproex Sodium (Depakote Sprinkles) 250 mg EVERY 12 HOURS NG 12/13/19 21:00 01/12/20 20:59 12/16/19 08:13 Docusate Sodium (Colace) 100 mg TWICE A DAY NG 12/15/19 18:00 01/14/20 17:59 12/16/19 08:13 Insulin Aspart (NovoLOG) EVERY 6 HOURS SUBQ 12/13/19 12:00 03/12/20 11:59 12/15/19 05:42 Levothyroxine Sodium (Synthroid) 75 mcg DAILY IV 12/13/19 09:00 01/11/20 09:29 12/16/19 09:02 Lorazepam (Ativan) 1 mg Q6H PRN GT For Anxiety 12/15/19 16:30 12/19/19 12:30 Nitroglycerin (Ntg) 0.4 mg Q5MIN X 3 DOSES PRN SL CHEST PAIN 12/12/19 12:00 01/10/20 21:44 Olanzapine (ZyPREXA) 5 mg BID GT 12/15/19 18:00 01/26/20 08:59 12/16/19 08:12 Pantoprazole (Protonix) 40 mg EVERY 12 HOURS IVP 12/14/19 09:00 01/13/20 08:59 12/16/19 08:13 Phosphorus (Phospha 250 Neutral) 250 mg THREE TIMES A DAY GT 12/15/19 09:00 01/14/20 08:59 12/16/19 08:13 Potassium Chloride (K-Dur) 40 meq TWICE A DAY NG 12/14/19 10:30 03/13/20 10:29 12/16/19 08:14 Sodium Chloride 1,000 ml @ 50 mls/hr Q20H IV 12/12/19 12:30 01/11/20 12:29 12/15/19 20:32 Vancomycin HCl ([facility] pharmacy to dose) 1 ea DAILY PRN MISC Per rx protocol 12/14/19 12:15 01/13/20 12:14 Vancomycin HCl 750 mg/Dextrose 275 ml @ 183.333 mls/hr Q12H IVPB 12/16/19 03:00 12/21/19 02:59 12/16/19 03:30 Lei Chan MD Dec 16, 2019 11:38
--- NOTE | 2019-12-16 12:00 | NUR ---
NURSE NOTES: Repositioned patient; refused oral care at this time. Patient is weaning at the moment with CPAP and pressure support 8, FiO2 28%. Will continue to monitor.
--- NOTE | 2019-12-16 12:58 | General Progress Note ---
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 - Other specified diabetes mellitus without complications SNOMED: 217584461 (2) Parkinson disease ICD Codes: G20 - Parkinson's disease SNOMED: 42380400 (3) Schizophrenia ICD Codes: F20.9 - Schizophrenia, unspecified SNOMED: 34072682 (4) Hypertension ICD Codes: I10 - Essential (primary) hypertension SNOMED: 49601612 (5) Respiratory failure ICD Codes: J96.90 - Respiratory failure, unspecified, unspecified whether with hypoxia or hypercapnia SNOMED: 995345980 (6) Hypothyroidism ICD Codes: E03.9 - Hypothyroidism, unspecified SNOMED: 54484053 Status: progressing Assessment/Plan: continue Levothyroxine 75 mcg IV daily continue Novolog sliding scale every 6 hours hypoglycemia protocol in order Subjective ROS Limited/Unobtainable: Yes Allergies: Coded Allergies: LITHIUM (Verified Allergy, Unknown, 02/07/19) Subjective events noted intubated in icu glucose values are stable Item Value Date Time Bedside Blood Glucose 131 mg/dl H 12/16/19 1200 Bedside Blood Glucose 135 mg/dl H 12/16/19 0551 Bedside Blood Glucose 103 mg/dl 12/16/19 0024 Bedside Blood Glucose 134 mg/dl H 12/15/19 1752 Objective Last 24 Hour Vital Signs Date Time Temp Pulse Resp B/P (MAP) Pulse Ox O2 Delivery O2 Flow Rate FiO2 12/16/19 11:39 28 12/16/19 11:27 80 17 35 12/16/19 11:00 74 16 118/47 (70) 100 12/16/19 10:00 75 16 123/47 (72) 99 12/16/19 09:00 75 16 126/49 (74) 99 12/16/19 08:28 74 12/16/19 08:00 35 12/16/19 08:00 98.5 85 22 131/50 (77) 100 12/16/19 08:00 Mechanical Ventilator 12/16/19 07:05 76 15 35 12/16/19 07:00 77 15 119/46 (70) 100 12/16/19 06:30 78 15 12/16/19 06:00 75 15 114/44 (67) 99 12/16/19 05:00 74 15 110/42 (64) 100 12/16/19 04:30 73 15 108/75 (86) 100 12/16/19 04:00 76 12/16/19 04:00 98.8 75 15 117/45 (69) 100 12/16/19 04:00 Mechanical Ventilator 12/16/19 04:00 35 12/16/19 03:30 76 16 119/47 (71) 99 12/16/19 03:15 72 15 35 12/16/19 03:00 78 17 114/49 (70) 98 12/16/19 02:00 77 15 110/42 (64) 98 12/16/19 01:00 75 15 123/46 (71) 100 12/16/19 00:00 Mechanical Ventilator 12/16/19 00:00 75 12/16/19 00:00 98.8 74 15 120/46 (70) 99 12/16/19 00:00 35 12/15/19 23:59 74 15 35 12/15/19 23:30 75 15 125/47 (73) 99 12/15/19 23:00 76 16 122/46 (71) 99 12/15/19 22:00 73 15 119/50 (73) 99 12/15/19 21:00 75 16 114/62 (79) 98 12/15/19 20:30 77 17 116/45 (68) 99 12/15/19 20:00 35 12/15/19 20:00 98.4 78 16 123/48 (73) 99 12/15/19 20:00 Mechanical Ventilator 12/15/19 20:00 77 12/15/19 19:30 79 17 35 12/15/19 19:00 78 15 116/46 (69) 97 12/15/19 18:00 78 20 117/90 (99) 99 12/15/19 17:00 79 15 123/50 (74) 97 12/15/19 16:00 74 12/15/19 16:00 98.6 88 19 134/53 (80) 100 12/15/19 16:00 Mechanical Ventilator 12/15/19 15:20 75 15 35 12/15/19 15:00 75 15 118/47 (70) 97 12/15/19 14:00 80 15 123/48 (73) 97 12/15/19 13:50 35 7/4/20 13:00 85 18 128/53 (78) 99 Intake and Output 12/15/19 12/16/19 19:00 07:00 Intake Total 1820 ml 1660.000 ml Output Total 2450 ml 500 ml Balance -630 ml 1160.000 ml Intake Free Water 30 ml 200 ml IV Total 1190 ml 800.000 ml Tube Feeding 600 ml 600 ml Other 60 ml Output Urine Total 2450 ml 500 ml Laboratory Tests 12/15/19 13:36: Arterial Blood pH 7.398, Arterial Blood Partial Pressure CO2 59.0*H, Arterial Blood Partial Pressure O2 89.3, Arterial Blood HCO3 35.6H, Arterial Blood Oxygen Saturation 96.2, Arterial Blood Base Excess 8.9H, Raphael Test Positive 12/16/19 00:14: POC Whole Blood Glucose 103 12/16/19 01:20: Vancomycin Level Trough 8.3 12/16/19 04:08: White Blood Count 5.4, Red Blood Count 3.43L, Hemoglobin 11.0L, Hematocrit 35.4L , Mean Corpuscular Volume 103H, Mean Corpuscular Hemoglobin 32.0H, Mean Corpuscular Hemoglobin Concent 31.0L, Red Cell Distribution Width 13.3, Platelet Count 169, Mean Platelet Volume 6.0L, Neutrophils (%) (Auto) 65.8, Lymphocytes (%) (Auto) 22.6, Monocytes (%) (Auto) 8.7, Eosinophils (%) (Auto) 2.5, Basophils (%) (Auto) 0.4, Sodium Level 144, Potassium Level 4.0, Chloride Level 102, Carbon Dioxide Level 36H, Anion Gap 7, Blood Urea Nitrogen 19H, Creatinine 1.1, Estimat Glomerular Filtration Rate 47.8, Glucose Level 90, Calcium Level 7.5L 12/16/19 09:52: Arterial Blood pH 7.428, Arterial Blood Partial Pressure CO2 50.8H, Arterial Blood Partial Pressure O2 90.5, Arterial Blood HCO3 32.8H, Arterial Blood Oxygen Saturation 96.6, Arterial Blood Base Excess 7.3H, Raphael Test Positive Height (Feet): 5 Height (Inches): 7.00 Weight (Pounds): 212 General Appearance: other - intubated EENT: other - ETT Neck: normal alignment Respiratory/Chest: decreased breath sounds Abdomen: normal bowel sounds Objective Current Medications Medications (Trade) Dose Ordered Sig/Angie Route PRN Reason Start Time Stop Time Status Last Admin Dose Admin Acetaminophen (Tylenol) 650 mg Q6H PRN ORAL Mild Pain (Pain Scale 1-3) 12/12/19 12:30 01/11/20 12:29 Acetaminophen (Tylenol) 1,000 mg Q6H PRN ORAL MODERATE PAIN 12/12/19 12:30 01/11/20 12:29 Amantadine HCl (Symmetrel) 100 mg TWICE A DAY GT 12/15/19 18:00 01/11/20 08:59 12/16/19 08:13 Aspirin (Ecotrin) 325 mg DAILY ORAL 12/13/19 09:00 01/26/20 08:59 12/16/19 08:12 Atorvastatin Calcium (Lipitor) 10 mg BEDTIME GT 12/15/19 21:00 03/11/20 20:59 12/15/19 20:32 Calcium Carbonate (Os-Octavio) 1,250 mg THREE TIMES A DAY GT 12/15/19 18:00 03/11/20 09:59 12/16/19 12:12 Cefepime HCl 1 gm/ Dextrose 55 ml @ 110 mls/hr Q24H IVPB 12/12/19 16:00 12/19/19 15:59 12/15/19 16:18 Clonidine HCl (Catapres Tab) 0.1 mg Q6H PRN GT For high BP over 160 systolic 12/15/19 16:30 03/11/20 12:30 Dextrose (Dextrose 50%) 25 ml Q30M PRN IV Hypoglycemia 12/13/19 07:15 03/12/20 07:14 Dextrose (Dextrose 50%) 50 ml Q30M PRN IV Hypoglycemia 12/13/19 07:15 03/12/20 07:14 Divalproex Sodium (Depakote Sprinkles) 250 mg EVERY 12 HOURS NG 12/13/19 21:00 01/12/20 20:59 12/16/19 08:13 Docusate Sodium (Colace) 100 mg TWICE A DAY NG 12/15/19 18:00 01/14/20 17:59 12/16/19 08:13 Insulin Aspart (NovoLOG) EVERY 6 HOURS SUBQ 12/13/19 12:00 03/12/20 11:59 12/15/19 05:42 Levothyroxine Sodium (Synthroid) 75 mcg DAILY IV 12/13/19 09:00 01/11/20 09:29 12/16/19 09:02 Lorazepam (Ativan) 1 mg Q6H PRN GT For Anxiety 12/15/19 16:30 12/19/19 12:30 Nitroglycerin (Ntg) 0.4 mg Q5MIN X 3 DOSES PRN SL CHEST PAIN 12/12/19 12:00 01/10/20 21:44 Olanzapine (ZyPREXA) 5 mg BID GT 12/15/19 18:00 01/26/20 08:59 12/16/19 08:12 Pantoprazole (Protonix) 40 mg EVERY 12 HOURS IVP 12/14/19 09:00 01/13/20 08:59 12/16/19 08:13 Phosphorus (Phospha 250 Neutral) 250 mg THREE TIMES A DAY GT 12/15/19 09:00 01/14/20 08:59 12/16/19 12:12 Potassium Chloride (K-Dur) 40 meq TWICE A DAY NG 12/14/19 10:30 03/13/20 10:29 12/16/19 08:14 Sodium Chloride 1,000 ml @ 50 mls/hr Q20H IV 12/12/19 12:30 01/11/20 12:29 12/15/19 20:32 Jabari Adams MD Dec 16, 2019 12:58
--- NOTE | 2019-12-16 13:20 | General Progress Note ---
Assessment/Plan Status: progressing Assessment/Plan: Assessment - Resp failure - r/o COVID -- x 2 negative - COPD - HTN - Anemia - Abnormal LFT Recommendations - Continue TF - Elevate HOB - abx - follow labs - f/u hepatitis serologies - abd ultrasound next week Subjective Allergies: Coded Allergies: LITHIUM (Verified Allergy, Unknown, 02/07/19) Subjective Above noted resting comfortably tolerating TF Objective Last 24 Hour Vital Signs Date Time Temp Pulse Resp B/P (MAP) Pulse Ox O2 Delivery O2 Flow Rate FiO2 12/16/19 11:39 28 12/16/19 11:27 80 17 35 12/16/19 11:00 74 16 118/47 (70) 100 12/16/19 10:00 75 16 123/47 (72) 99 12/16/19 09:00 75 16 126/49 (74) 99 12/16/19 08:28 74 12/16/19 08:00 35 12/16/19 08:00 98.5 85 22 131/50 (77) 100 12/16/19 08:00 Mechanical Ventilator 12/16/19 07:05 76 15 35 12/16/19 07:00 77 15 119/46 (70) 100 12/16/19 06:30 78 15 12/16/19 06:00 75 15 114/44 (67) 99 12/16/19 05:00 74 15 110/42 (64) 100 12/16/19 04:30 73 15 108/75 (86) 100 12/16/19 04:00 76 12/16/19 04:00 98.8 75 15 117/45 (69) 100 12/16/19 04:00 Mechanical Ventilator 12/16/19 04:00 35 12/16/19 03:30 76 16 119/47 (71) 99 12/16/19 03:15 72 15 35 12/16/19 03:00 78 17 114/49 (70) 98 12/16/19 02:00 77 15 110/42 (64) 98 12/16/19 01:00 75 15 123/46 (71) 100 12/16/19 00:00 Mechanical Ventilator 12/16/19 00:00 75 12/16/19 00:00 98.8 74 15 120/46 (70) 99 12/16/19 00:00 35 12/15/19 23:59 74 15 35 12/15/19 23:30 75 15 125/47 (73) 99 12/15/19 23:00 76 16 122/46 (71) 99 12/15/19 22:00 73 15 119/50 (73) 99 12/15/19 21:00 75 16 114/62 (79) 98 12/15/19 20:30 77 17 116/45 (68) 99 12/15/19 20:00 35 12/15/19 20:00 98.4 78 16 123/48 (73) 99 12/15/19 20:00 Mechanical Ventilator 12/15/19 20:00 77 12/15/19 19:30 79 17 35 12/15/19 19:00 78 15 116/46 (69) 97 12/15/19 18:00 78 20 117/90 (99) 99 12/15/19 17:00 79 15 123/50 (74) 97 12/15/19 16:00 74 12/15/19 16:00 98.6 88 19 134/53 (80) 100 12/15/19 16:00 Mechanical Ventilator 12/15/19 15:20 75 15 35 12/15/19 15:00 75 15 118/47 (70) 97 12/15/19 14:00 80 15 123/48 (73) 97 12/15/19 13:50 35 Intake and Output 12/15/19 12/16/19 19:00 07:00 Intake Total 1820 ml 1660.000 ml Output Total 2450 ml 500 ml Balance -630 ml 1160.000 ml Intake Free Water 30 ml 200 ml IV Total 1190 ml 800.000 ml Tube Feeding 600 ml 600 ml Other 60 ml Output Urine Total 2450 ml 500 ml Laboratory Tests 12/15/19 13:36: Arterial Blood pH 7.398, Arterial Blood Partial Pressure CO2 59.0*H, Arterial Blood Partial Pressure O2 89.3, Arterial Blood HCO3 35.6H, Arterial Blood Oxygen Saturation 96.2, Arterial Blood Base Excess 8.9H, Raphael Test Positive 12/16/19 00:14: POC Whole Blood Glucose 103 12/16/19 01:20: Vancomycin Level Trough 8.3 12/16/19 04:08: White Blood Count 5.4, Red Blood Count 3.43L, Hemoglobin 11.0L, Hematocrit 35.4L , Mean Corpuscular Volume 103H, Mean Corpuscular Hemoglobin 32.0H, Mean Corpuscular Hemoglobin Concent 31.0L, Red Cell Distribution Width 13.3, Platelet Count 169, Mean Platelet Volume 6.0L, Neutrophils (%) (Auto) 65.8, Lymphocytes (%) (Auto) 22.6, Monocytes (%) (Auto) 8.7, Eosinophils (%) (Auto) 2.5, Basophils (%) (Auto) 0.4, Sodium Level 144, Potassium Level 4.0, Chloride Level 102, Carbon Dioxide Level 36H, Anion Gap 7, Blood Urea Nitrogen 19H, Creatinine 1.1, Estimat Glomerular Filtration Rate 47.8, Glucose Level 90, Calcium Level 7.5L 12/16/19 09:52: Arterial Blood pH 7.428, Arterial Blood Partial Pressure CO2 50.8H, Arterial Blood Partial Pressure O2 90.5, Arterial Blood HCO3 32.8H, Arterial Blood Oxygen Saturation 96.6, Arterial Blood Base Excess 7.3H, Raphael Test Positive Height (Feet): 5 Height (Inches): 7.00 Weight (Pounds): 212 Objective Elderly woman on vent NAD appears comfortable Aria Chicas MD Dec 16, 2019 13:20
--- NOTE | 2019-12-16 13:24 | NUR ---
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 ENTERAL NUTRITION RECOMMENDATIONS: Vital AF 1.2 @ 50ml/hr x 24 hrs to provide 1200ml, 1440kcal, 90g prot, 973ml free water * As medically appropriate, initiate Vital AF 1.2 @ 20ml/hr x 6hrs * Advance 10ml q 4-6 hrs as tolerated to goal * HOB over 30 degrees/ water flush per MD If IV Synthroid changes to Synthroid via NGT, hold 1 hr before and after Synthroid med -> Vital AF 1.2 @ 55ml/hr x 22 hrs to provide 1210ml, 1452kcal, 91g prot ADDITIONAL RECOMMENDATIONS: * Per SNF: HT=68" RH=053yld (12/04/19) * Monitor lytes w/ TF, replete as needed * NISS w/ TF- h/o DM, A1C 6.4 * Monitor HD stability: without pressor support at this time * Skin integrity: f/up w/ WC eval-> add ELIAS BID via NGT TF @ goal will provide 100% RDI
--- NOTE | 2019-12-16 14:00 | NUR ---
NURSE NOTES: Repositioned patient. No distress at this time. Will continue to monitor.
--- NOTE | 2019-12-16 14:01 | Cardiac Electrophysiology PN ---
Assessment/Plan Assessment/Plan 1. Respiratory failure with BNP of more than 19,000. Echo showed normal ejection fraction. Off Lasix now 2. 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 3. Respiratory failure. Patient is intubated on the vent on steroids and antibiotic 4. History of Parkinson disease. 5. Hyperlipidemia. 6. Metabolic alkalosis. Better off Lasix DW RN Subjective Subjective Intubated on the vent off pressors. In SR.Only on 28% Fio2 Objective Last 24 Hour Vital Signs Date Time Temp Pulse Resp B/P (MAP) Pulse Ox O2 Delivery O2 Flow Rate FiO2 12/16/19 11:39 28 12/16/19 11:27 80 17 35 12/16/19 11:00 74 16 118/47 (70) 100 12/16/19 10:00 75 16 123/47 (72) 99 12/16/19 09:00 75 16 126/49 (74) 99 12/16/19 08:28 74 12/16/19 08:00 35 12/16/19 08:00 98.5 85 22 131/50 (77) 100 12/16/19 08:00 Mechanical Ventilator 12/16/19 07:05 76 15 35 12/16/19 07:00 77 15 119/46 (70) 100 12/16/19 06:30 78 15 12/16/19 06:00 75 15 114/44 (67) 99 12/16/19 05:00 74 15 110/42 (64) 100 12/16/19 04:30 73 15 108/75 (86) 100 12/16/19 04:00 76 12/16/19 04:00 98.8 75 15 117/45 (69) 100 12/16/19 04:00 Mechanical Ventilator 12/16/19 04:00 35 12/16/19 03:30 76 16 119/47 (71) 99 12/16/19 03:15 72 15 35 12/16/19 03:00 78 17 114/49 (70) 98 12/16/19 02:00 77 15 110/42 (64) 98 12/16/19 01:00 75 15 123/46 (71) 100 12/16/19 00:00 Mechanical Ventilator 12/16/19 00:00 75 12/16/19 00:00 98.8 74 15 120/46 (70) 99 12/16/19 00:00 35 12/15/19 23:59 74 15 35 12/15/19 23:30 75 15 125/47 (73) 99 12/15/19 23:00 76 16 122/46 (71) 99 12/15/19 22:00 73 15 119/50 (73) 99 12/15/19 21:00 75 16 114/62 (79) 98 12/15/19 20:30 77 17 116/45 (68) 99 12/15/19 20:00 35 12/15/19 20:00 98.4 78 16 123/48 (73) 99 12/15/19 20:00 Mechanical Ventilator 12/15/19 20:00 77 12/15/19 19:30 79 17 35 12/15/19 19:00 78 15 116/46 (69) 97 12/15/19 18:00 78 20 117/90 (99) 99 12/15/19 17:00 79 15 123/50 (74) 97 12/15/19 16:00 74 12/15/19 16:00 98.6 88 19 134/53 (80) 100 12/15/19 16:00 Mechanical Ventilator 12/15/19 15:20 75 15 35 12/15/19 15:00 75 15 118/47 (70) 97 Intake and Output 12/15/19 12/16/19 19:00 07:00 Intake Total 1820 ml 1660.000 ml Output Total 2450 ml 500 ml Balance -630 ml 1160.000 ml Intake Free Water 30 ml 200 ml IV Total 1190 ml 800.000 ml Tube Feeding 600 ml 600 ml Other 60 ml Output Urine Total 2450 ml 500 ml Laboratory Tests Test 12/16/19 00:14 12/16/19 01:20 12/16/19 04:08 12/16/19 09:52 POC Whole Blood Glucose 103 MG/DL (74-106) Vancomycin Level Trough 8.3 ug/mL (5.0-12.0) White Blood Count 5.4 K/UL (4.8-10.8) Red Blood Count 3.43 M/UL (4.20-5.40) L Hemoglobin 11.0 G/DL (12.0-16.0) L Hematocrit 35.4 % (37.0-47.0) L Mean Corpuscular Volume 103 FL (80-99) H Mean Corpuscular Hemoglobin 32.0 PG (27.0-31.0) H Mean Corpuscular Hemoglobin Concent 31.0 G/DL (32.0-36.0) L Red Cell Distribution Width 13.3 % (11.6-14.8) Platelet Count 169 K/UL (150-450) Mean Platelet Volume 6.0 FL (6.5-10.1) L Neutrophils (%) (Auto) 65.8 % (45.0-75.0) Lymphocytes (%) (Auto) 22.6 % (20.0-45.0) Monocytes (%) (Auto) 8.7 % (1.0-10.0) Eosinophils (%) (Auto) 2.5 % (0.0-3.0) Basophils (%) (Auto) 0.4 % (0.0-2.0) Sodium Level 144 MMOL/L (136-145) Potassium Level 4.0 MMOL/L (3.5-5.1) Chloride Level 102 MMOL/L (98-107) Carbon Dioxide Level 36 MMOL/L (21-32) H Anion Gap 7 mmol/L (5-15) Blood Urea Nitrogen 19 mg/dL (7-18) H Creatinine 1.1 MG/DL (0.55-1.30) Estimat Glomerular Filtration Rate 47.8 mL/min (>60) Glucose Level 90 MG/DL (74-106) Calcium Level 7.5 MG/DL (8.5-10.1) L Arterial Blood pH 7.428 (7.350-7.450) Arterial Blood Partial Pressure CO2 50.8 mmHg (35.0-45.0) H Arterial Blood Partial Pressure O2 90.5 mmHg (75.0-100.0) Arterial Blood HCO3 32.8 mmol/L (22.0-26.0) H Arterial Blood Oxygen Saturation 96.6 % (95-100) Arterial Blood Base Excess 7.3 (-2-2) H Raphael Test Positive Microbiology Date/Time Source Procedure Growth Status 12/13/19 14:50 Nasopharynx Coronavirus COVID-19 PCR ([facility]) - Final Complete Objective HEAD AND NECK: Shows she is orally intubated with no JVD. LUNGS: Coarse rhonchi. CARDIOVASCULAR: Shows regular S1 and S2 and tachycardic. ABDOMEN: Soft. EXTREMITIES: No pitting edema. Cameron Davies MD Dec 16, 2019 14:01
[2019-12-16] MEDS: Cefepime HCl 1 GM in D5W 55 ML IVPB SCH (15:24)
--- NOTE | 2019-12-16 16:00 | NUR ---
NURSE NOTES: Complete bed bath given, linens changed. Left patient clean and dry. No distress noted. Will continue to monitor.
--- NOTE | 2019-12-16 16:09 | Hematology/Onc Progress Note ---
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 ( combination of moderate aortic regurgitation and severe mitral regurgitation) --> diuresis as per cards --> lasix last time # Severe ascending aortic dilatation --> per cards, Dr Davies # Hypertension # Parkinson disease # Hyperlipidemia # Hypothyroidism # Dementia # Obesity # [facility] # Dvt ppx lovenox sq/scd's Appreciate field service consultant care and alexei Rn Subjective Allergies: Coded Allergies: LITHIUM (Verified Allergy, Unknown, 02/07/19) Subjective 12/12 labs are reviewed, intubated, with og, somewhat responsive, alexei rn 12/13 labs noted, hgb 7.8, tfs ok to start per gi 12/15 icu, restraints, no acute events, hep panel negative, sedated Objective Objective Current Medications Medications (Trade) Dose Ordered Sig/Angie Route PRN Reason Start Time Stop Time Status Last Admin Dose Admin Acetaminophen (Tylenol) 650 mg Q6H PRN ORAL Mild Pain (Pain Scale 1-3) 12/12/19 12:30 01/11/20 12:29 Acetaminophen (Tylenol) 1,000 mg Q6H PRN ORAL MODERATE PAIN 12/12/19 12:30 01/11/20 12:29 Amantadine HCl (Symmetrel) 100 mg TWICE A DAY GT 12/15/19 18:00 01/11/20 08:59 12/16/19 08:13 Aspirin (Ecotrin) 325 mg DAILY ORAL 12/13/19 09:00 01/26/20 08:59 12/16/19 08:12 Atorvastatin Calcium (Lipitor) 10 mg BEDTIME GT 12/15/19 21:00 03/11/20 20:59 12/15/19 20:32 Calcium Carbonate (Os-Octavio) 1,250 mg THREE TIMES A DAY GT 12/15/19 18:00 03/11/20 09:59 12/16/19 12:12 Cefepime HCl 1 gm/ Dextrose 55 ml @ 110 mls/hr Q24H IVPB 12/12/19 16:00 12/19/19 15:59 12/16/19 15:24 Clonidine HCl (Catapres Tab) 0.1 mg Q6H PRN GT For high BP over 160 systolic 12/15/19 16:30 03/11/20 12:30 Dextrose (Dextrose 50%) 25 ml Q30M PRN IV Hypoglycemia 12/13/19 07:15 03/12/20 07:14 Dextrose (Dextrose 50%) 50 ml Q30M PRN IV Hypoglycemia 12/13/19 07:15 03/12/20 07:14 Divalproex Sodium (Depakote Sprinkles) 250 mg EVERY 12 HOURS NG 12/13/19 21:00 01/12/20 20:59 12/16/19 08:13 Docusate Sodium (Colace) 100 mg TWICE A DAY NG 12/15/19 18:00 01/14/20 17:59 12/16/19 08:13 Insulin Aspart (NovoLOG) EVERY 6 HOURS SUBQ 12/13/19 12:00 03/12/20 11:59 12/15/19 05:42 Levothyroxine Sodium (Synthroid) 75 mcg DAILY IV 12/13/19 09:00 01/11/20 09:29 12/16/19 09:02 Lorazepam (Ativan) 1 mg Q6H PRN GT For Anxiety 12/15/19 16:30 12/19/19 12:30 Nitroglycerin (Ntg) 0.4 mg Q5MIN X 3 DOSES PRN SL CHEST PAIN 12/12/19 12:00 01/10/20 21:44 Olanzapine (ZyPREXA) 5 mg BID GT 12/15/19 18:00 01/26/20 08:59 12/16/19 08:12 Pantoprazole (Protonix) 40 mg EVERY 12 HOURS IVP 12/14/19 09:00 01/13/20 08:59 12/16/19 08:13 Phosphorus (Phospha 250 Neutral) 250 mg THREE TIMES A DAY GT 12/15/19 09:00 01/14/20 08:59 12/16/19 12:12 Potassium Chloride (K-Dur) 40 meq TWICE A DAY NG 12/14/19 10:30 03/13/20 10:29 12/16/19 08:14 Sodium Chloride 1,000 ml @ 50 mls/hr Q20H IV 12/12/19 12:30 01/11/20 12:29 12/16/19 15:30 Last 24 Hour Vital Signs Date Time Temp Pulse Resp B/P (MAP) Pulse Ox O2 Delivery O2 Flow Rate FiO2 12/16/19 15:01 73 19 28 12/16/19 15:00 73 20 120/45 (70) 98 12/16/19 14:00 76 21 119/46 (70) 98 12/16/19 13:00 78 20 123/49 (73) 98 12/16/19 12:00 28 12/16/19 12:00 Mechanical Ventilator 12/16/19 12:00 77 20 123/50 (74) 98 12/16/19 12:00 74 12/16/19 11:39 98 12/16/19 11:39 28 12/16/19 11:27 80 17 35 12/16/19 11:00 74 16 118/47 (70) 100 12/16/19 10:00 75 16 123/47 (72) 99 12/16/19 09:00 75 16 126/49 (74) 99 12/16/19 08:28 74 12/16/19 08:00 35 12/16/19 08:00 98.5 85 22 131/50 (77) 100 12/16/19 08:00 Mechanical Ventilator 12/16/19 07:05 76 15 35 12/16/19 07:00 77 15 119/46 (70) 100 12/16/19 06:30 78 15 12/16/19 06:00 75 15 114/44 (67) 99 12/16/19 05:00 74 15 110/42 (64) 100 12/16/19 04:30 73 15 108/75 (86) 100 12/16/19 04:00 76 12/16/19 04:00 98.8 75 15 117/45 (69) 100 12/16/19 04:00 Mechanical Ventilator 12/16/19 04:00 35 12/16/19 03:30 76 16 119/47 (71) 99 12/16/19 03:15 72 15 35 12/16/19 03:00 78 17 114/49 (70) 98 12/16/19 02:00 77 15 110/42 (64) 98 12/16/19 01:00 75 15 123/46 (71) 100 12/16/19 00:00 Mechanical Ventilator 12/16/19 00:00 75 12/16/19 00:00 98.8 74 15 120/46 (70) 99 12/16/19 00:00 35 12/15/19 23:59 74 15 35 12/15/19 23:30 75 15 125/47 (73) 99 12/15/19 23:00 76 16 122/46 (71) 99 12/15/19 22:00 73 15 119/50 (73) 99 12/15/19 21:00 75 16 114/62 (79) 98 12/15/19 20:30 77 17 116/45 (68) 99 12/15/19 20:00 35 12/15/19 20:00 98.4 78 16 123/48 (73) 99 12/15/19 20:00 Mechanical Ventilator 12/15/19 20:00 77 12/15/19 19:30 79 17 35 12/15/19 19:00 78 15 116/46 (69) 97 12/15/19 18:00 78 20 117/90 (99) 99 12/15/19 17:00 79 15 123/50 (74) 97 12/15/19 16:00 74 12/15/19 16:00 98.6 88 19 134/53 (80) 100 12/15/19 16:00 Mechanical Ventilator 12/15/19 15:20 75 15 35 12/15/19 15:00 75 15 118/47 (70) 97 12/15/19 14:00 80 15 123/48 (73) 97 12/15/19 13:50 35 12/15/19 13:00 85 18 128/53 (78) 99 12/15/19 12:00 98.5 81 19 139/50 (79) 100 12/15/19 12:00 35 12/15/19 12:00 Mechanical Ventilator 12/15/19 12:00 80 12/15/19 11:59 84 18 35 35 12/15/19 11:50 73 16 35 12/15/19 11:00 73 17 127/47 (73) 100 12/15/19 10:00 71 16 131/48 (75) 99 12/15/19 09:00 70 16 128/45 (72) 100 12/15/19 08:00 Mechanical Ventilator 12/15/19 08:00 35 12/15/19 08:00 68 12/15/19 08:00 99.0 68 16 126/43 (70) 100 12/15/19 07:22 72 17 35 12/15/19 07:00 70 16 122/44 (70) 100 12/15/19 06:30 69 15 12/15/19 06:00 69 15 116/44 (68) 99 12/15/19 05:30 68 15 123/44 (70) 100 12/15/19 05:00 69 15 118/44 (68) 100 12/15/19 04:30 74 17 127/49 (75) 99 12/15/19 04:00 35 12/15/19 04:00 Endotracheal Tube 12/15/19 04:00 98.5 70 17 127/42 (70) 100 12/15/19 03:30 70 16 123/42 (69) 99 12/15/19 03:07 70 17 35 12/15/19 03:02 69 12/15/19 03:00 70 17 123/41 (68) 99 12/15/19 02:30 69 17 120/43 (68) 100 12/15/19 02:00 70 16 121/43 (69) 99 12/15/19 01:30 71 18 126/45 (72) 100 12/15/19 01:00 71 16 119/43 (68) 98 12/15/19 00:00 99.3 72 18 116/42 (66) 98 12/15/19 00:00 Endotracheal Tube 12/14/19 23:49 72 17 35 12/14/19 23:30 71 15 113/42 (65) 99 12/14/19 23:04 73 12/14/19 23:00 73 17 119/43 (68) 98 12/14/19 22:30 74 17 127/47 (73) 100 12/14/19 22:00 74 17 119/46 (70) 99 12/14/19 21:30 74 17 124/44 (70) 99 12/14/19 21:00 75 18 129/44 (72) 99 12/14/19 20:30 76 18 129/44 (72) 99 12/14/19 20:00 Endotracheal Tube 12/14/19 20:00 35 12/14/19 20:00 98.6 75 18 125/47 (73) 100 12/14/19 19:54 74 17 35 12/14/19 19:32 74 12/14/19 19:00 72 18 129/48 (75) 100 12/14/19 18:00 70 17 123/46 (71) 100 12/14/19 17:00 98.9 73 17 115/44 (67) 100 Intake and Output 12/15/19 12/16/19 19:00 07:00 Intake Total 1820 ml 1660.000 ml Output Total 2450 ml 500 ml Balance -630 ml 1160.000 ml Intake Free Water 30 ml 200 ml IV Total 1190 ml 800.000 ml Tube Feeding 600 ml 600 ml Other 60 ml Output Urine Total 2450 ml 500 ml Labs Test 12/14/19 04:15 12/14/19 17:09 12/15/19 04:50 12/15/19 09:18 White Blood Count 5.2 K/UL (4.8-10.8) 5.8 K/UL (4.8-10.8) Red Blood Count 3.53 M/UL (4.20-5.40) 3.49 M/UL (4.20-5.40) Hemoglobin 11.4 G/DL (12.0-16.0) 11.3 G/DL (12.0-16.0) Hematocrit 35.5 % (37.0-47.0) 34.9 % (37.0-47.0) Mean Corpuscular Volume 101 FL (80-99) 100 FL (80-99) Mean Corpuscular Hemoglobin 32.4 PG (27.0-31.0) 32.4 PG (27.0-31.0) Mean Corpuscular Hemoglobin Concent 32.1 G/DL (32.0-36.0) 32.4 G/DL (32.0-36.0) Red Cell Distribution Width 13.0 % (11.6-14.8) 12.9 % (11.6-14.8) Platelet Count 186 K/UL (150-450) 182 K/UL (150-450) Mean Platelet Volume 6.8 FL (6.5-10.1) 6.3 FL (6.5-10.1) Neutrophils (%) (Auto) 71.2 % (45.0-75.0) 70.6 % (45.0-75.0) Lymphocytes (%) (Auto) 19.8 % (20.0-45.0) 19.0 % (20.0-45.0) Monocytes (%) (Auto) 7.4 % (1.0-10.0) 8.8 % (1.0-10.0) Eosinophils (%) (Auto) 1.2 % (0.0-3.0) 1.1 % (0.0-3.0) Basophils (%) (Auto) 0.5 % (0.0-2.0) 0.5 % (0.0-2.0) Sodium Level 136 MMOL/L (136-145) 139 MMOL/L (136-145) Potassium Level 2.6 MMOL/L (3.5-5.1) 2.9 MMOL/L (3.5-5.1) Chloride Level 95 MMOL/L (98-107) 97 MMOL/L (98-107) Carbon Dioxide Level 33 MMOL/L (21-32) 35 MMOL/L (21-32) Anion Gap 8 mmol/L (5-15) 8 mmol/L (5-15) Blood Urea Nitrogen 26 mg/dL (7-18) 23 mg/dL (7-18) Creatinine 1.3 MG/DL (0.55-1.30) 1.4 MG/DL (0.55-1.30) Estimat Glomerular Filtration Rate 39.4 mL/min (>60) 36.2 mL/min (>60) Glucose Level 66 MG/DL (74-106) 145 MG/DL (74-106) Calcium Level 7.6 MG/DL (8.5-10.1) 7.4 MG/DL (8.5-10.1) Phosphorus Level 2.0 MG/DL (2.5-4.9) 1.8 MG/DL (2.5-4.9) Magnesium Level 1.7 MG/DL (1.8-2.4) 1.8 MG/DL (1.8-2.4) Total Bilirubin 1.1 MG/DL (0.2-1.0) 0.8 MG/DL (0.2-1.0) Direct Bilirubin 0.2 MG/DL (0.0-0.3) Aspartate Amino Transf (AST/SGOT) 49 U/L (15-37) 36 U/L (15-37) Alanine Aminotransferase (ALT/SGPT) 112 U/L (12-78) 93 U/L (12-78) Alkaline Phosphatase 56 U/L (46-116) 51 U/L (46-116) C-Reactive Protein, Quantitative 5.5 mg/dL (0.00-0.90) Pro-B-Type Natriuretic Peptide 2250 pg/mL (0-125) Total Protein 6.2 G/DL (6.4-8.2) 6.2 G/DL (6.4-8.2) Albumin 3.4 G/DL (3.4-5.0) 3.2 G/DL (3.4-5.0) Globulin 2.8 g/dL 3.0 g/dL Albumin/Globulin Ratio 1.2 (1.0-2.7) 1.1 (1.0-2.7) POC Whole Blood Glucose 108 MG/DL (74-106) Uric Acid 10.5 MG/DL (2.6-7.2) Iron Level 32 ug/dL (50-175) Total Iron Binding Capacity 327 ug/dL (250-450) Percent Iron Saturation 10 % (15-50) Unsaturated Iron Binding 295 ug/dL (112-346) Vitamin B12 Level 889 PG/ML (193-986) Folate 18.1 NG/ML (8.6-58.9) Hepatitis A IgM Antibody Negative (Negative) Hepatitis B Surface Antigen Negative (Negative) Hepatitis B Core IgM Antibody Negative (Negative) Hepatitis C Antibody <0.1 s/co ratio Arterial Blood pH 7.466 (7.350-7.450) Arterial Blood Partial Pressure CO2 48.2 mmHg (35.0-45.0) Arterial Blood Partial Pressure O2 87.7 mmHg (75.0-100.0) Arterial Blood HCO3 34.0 mmol/L (22.0-26.0) Arterial Blood Oxygen Saturation 96.4 % (95-100) Arterial Blood Base Excess 9 (-2-2) Raphael Test Positive Test 12/15/19 13:36 12/16/19 00:14 12/16/19 01:20 12/16/19 04:08 Arterial Blood pH 7.398 (7.350-7.450) Arterial Blood Partial Pressure CO2 59.0 mmHg (35.0-45.0) Arterial Blood Partial Pressure O2 89.3 mmHg (75.0-100.0) Arterial Blood HCO3 35.6 mmol/L (22.0-26.0) Arterial Blood Oxygen Saturation 96.2 % (95-100) Arterial Blood Base Excess 8.9 (-2-2) Raphael Test Positive POC Whole Blood Glucose 103 MG/DL (74-106) Vancomycin Level Trough 8.3 ug/mL (5.0-12.0) White Blood Count 5.4 K/UL (4.8-10.8) Red Blood Count 3.43 M/UL (4.20-5.40) Hemoglobin 11.0 G/DL (12.0-16.0) Hematocrit 35.4 % (37.0-47.0) Mean Corpuscular Volume 103 FL (80-99) Mean Corpuscular Hemoglobin 32.0 PG (27.0-31.0) Mean Corpuscular Hemoglobin Concent 31.0 G/DL (32.0-36.0) Red Cell Distribution Width 13.3 % (11.6-14.8) Platelet Count 169 K/UL (150-450) Mean Platelet Volume 6.0 FL (6.5-10.1) Neutrophils (%) (Auto) 65.8 % (45.0-75.0) Lymphocytes (%) (Auto) 22.6 % (20.0-45.0) Monocytes (%) (Auto) 8.7 % (1.0-10.0) Eosinophils (%) (Auto) 2.5 % (0.0-3.0) Basophils (%) (Auto) 0.4 % (0.0-2.0) Sodium Level 144 MMOL/L (136-145) Potassium Level 4.0 MMOL/L (3.5-5.1) Chloride Level 102 MMOL/L (98-107) Carbon Dioxide Level 36 MMOL/L (21-32) Anion Gap 7 mmol/L (5-15) Blood Urea Nitrogen 19 mg/dL (7-18) Creatinine 1.1 MG/DL (0.55-1.30) Estimat Glomerular Filtration Rate 47.8 mL/min (>60) Glucose Level 90 MG/DL (74-106) Calcium Level 7.5 MG/DL (8.5-10.1) Test 12/16/19 09:52 Arterial Blood pH 7.428 (7.350-7.450) Arterial Blood Partial Pressure CO2 50.8 mmHg (35.0-45.0) Arterial Blood Partial Pressure O2 90.5 mmHg (75.0-100.0) Arterial Blood HCO3 32.8 mmol/L (22.0-26.0) Arterial Blood Oxygen Saturation 96.6 % (95-100) Arterial Blood Base Excess 7.3 (-2-2) Raphael Test Positive Height (Feet): 5 Height (Inches): 7.00 Weight (Pounds): 212 Objective Vitals: reviewed General: NAD HEENT: nc, at ++ogt Neck: supple ++intubated Chest: decreased breath sounds bilaterally Cardiovascular: RRR, no s3, s4 Abdomen: soft, nontender, nd Extremities: 1-2 + edema, scd's Neuro: nonverbal : restraints Frank Escobar MD Dec 16, 2019 16:09
--- NOTE | 2019-12-16 17:18 | Nephrology Progress Note ---
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 Respiratory distress most likely secondary to pulmonary edema and or COPD exacerbation. Hyponatremia. Obese. Hypothyroidism. Elevated d-dimer. Elevated liver enzymes Plan December 15: Remains vented. Electrolytes improved. Continue per consultants. December 14: Patient remains in ICU intubated on ventilator. Potassium low. Phosphorus low. Supplements given. Renal parameters are stable. Continue per consultants. December 13: Patient remains in ICU intubated on ventilator. Discussed with RN. Labs reviewed. Creatinine 1.3. Potassium supplements given. Mag sulfate IV 2 g given. Continue per consultants. December 12: Patient in ICU. Intubated on ventilator. Discussed with RN. Labs reviewed. Potassium supplement given. Continue per consultants. Arterial blood gas indicative of CO2 retention. Patient on the way to ICU for intubation. Continue per pulmonary management. Pulmonary support, Check 2D echocardiogram. Previous 2D echo had a 50% ejection fraction. Keep blood sugar and blood pressure in check. Thyroid panel. Monitor electrolytes and renal parameters. Afterload reduction. Diuretics Monitor serum calcium, supplements via NG tube. Per orders. Subjective ROS Limited/Unobtainable: Yes Objective Objective Last 24 Hour Vital Signs Date Time Temp Pulse Resp B/P (MAP) Pulse Ox O2 Delivery O2 Flow Rate FiO2 12/16/19 17:00 75 15 122/48 (72) 97 12/16/19 16:00 28 12/16/19 16:00 Mechanical Ventilator 12/16/19 16:00 98.9 73 16 116/46 (69) 97 12/16/19 15:01 73 19 28 12/16/19 15:00 73 20 120/45 (70) 98 12/16/19 14:00 76 21 119/46 (70) 98 12/16/19 13:00 78 20 123/49 (73) 98 12/16/19 12:00 28 12/16/19 12:00 Mechanical Ventilator 12/16/19 12:00 77 20 123/50 (74) 98 12/16/19 12:00 74 12/16/19 11:39 98 12/16/19 11:39 28 12/16/19 11:27 80 17 35 12/16/19 11:00 74 16 118/47 (70) 100 12/16/19 10:00 75 16 123/47 (72) 99 12/16/19 09:00 75 16 126/49 (74) 99 12/16/19 08:28 74 12/16/19 08:00 35 12/16/19 08:00 98.5 85 22 131/50 (77) 100 12/16/19 08:00 Mechanical Ventilator 12/16/19 07:05 76 15 35 12/16/19 07:00 77 15 119/46 (70) 100 12/16/19 06:30 78 15 12/16/19 06:00 75 15 114/44 (67) 99 12/16/19 05:00 74 15 110/42 (64) 100 12/16/19 04:30 73 15 108/75 (86) 100 12/16/19 04:00 76 12/16/19 04:00 98.8 75 15 117/45 (69) 100 12/16/19 04:00 Mechanical Ventilator 12/16/19 04:00 35 12/16/19 03:30 76 16 119/47 (71) 99 12/16/19 03:15 72 15 35 12/16/19 03:00 78 17 114/49 (70) 98 12/16/19 02:00 77 15 110/42 (64) 98 12/16/19 01:00 75 15 123/46 (71) 100 12/16/19 00:00 Mechanical Ventilator 12/16/19 00:00 75 12/16/19 00:00 98.8 74 15 120/46 (70) 99 12/16/19 00:00 35 12/15/19 23:59 74 15 35 12/15/19 23:30 75 15 125/47 (73) 99 12/15/19 23:00 76 16 122/46 (71) 99 12/15/19 22:00 73 15 119/50 (73) 99 12/15/19 21:00 75 16 114/62 (79) 98 12/15/19 20:30 77 17 116/45 (68) 99 12/15/19 20:00 35 12/15/19 20:00 98.4 78 16 123/48 (73) 99 12/15/19 20:00 Mechanical Ventilator 12/15/19 20:00 77 12/15/19 19:30 79 17 35 12/15/19 19:00 78 15 116/46 (69) 97 12/15/19 18:00 78 20 117/90 (99) 99 Intake and Output 12/15/19 12/16/19 19:00 07:00 Intake Total 1820 ml 1660.000 ml Output Total 2450 ml 500 ml Balance -630 ml 1160.000 ml Intake Free Water 30 ml 200 ml IV Total 1190 ml 800.000 ml Tube Feeding 600 ml 600 ml Other 60 ml Output Urine Total 2450 ml 500 ml Laboratory Tests 12/16/19 00:14: POC Whole Blood Glucose 103 12/16/19 01:20: Vancomycin Level Trough 8.3 12/16/19 04:08: White Blood Count 5.4, Red Blood Count 3.43L, Hemoglobin 11.0L, Hematocrit 35.4L , Mean Corpuscular Volume 103H, Mean Corpuscular Hemoglobin 32.0H, Mean Corpuscular Hemoglobin Concent 31.0L, Red Cell Distribution Width 13.3, Platelet Count 169, Mean Platelet Volume 6.0L, Neutrophils (%) (Auto) 65.8, Lymphocytes (%) (Auto) 22.6, Monocytes (%) (Auto) 8.7, Eosinophils (%) (Auto) 2.5, Basophils (%) (Auto) 0.4, Sodium Level 144, Potassium Level 4.0, Chloride Level 102, Carbon Dioxide Level 36H, Anion Gap 7, Blood Urea Nitrogen 19H, Creatinine 1.1, Estimat Glomerular Filtration Rate 47.8, Glucose Level 90, Calcium Level 7.5L 12/16/19 09:52: Arterial Blood pH 7.428, Arterial Blood Partial Pressure CO2 50.8H, Arterial Blood Partial Pressure O2 90.5, Arterial Blood HCO3 32.8H, Arterial Blood Oxygen Saturation 96.6, Arterial Blood Base Excess 7.3H, Raphael Test Positive Height (Feet): 5 Height (Inches): 7.00 Weight (Pounds): 212 General Appearance: no apparent distress EENT: other - Remains on mechanical ventilator Cardiovascular: normal rate Respiratory/Chest: decreased breath sounds Abdomen: soft Bryan Ochoa MD Dec 16, 2019 17:18
--- NOTE | 2019-12-16 18:00 | NUR ---
NURSE NOTES: Patient asleep, no distress. Repositioned. Will continue to monitor.
--- NOTE | 2019-12-16 19:10 | NUR ---
HAND-OFF: Report given to DARREL Estrada. Endorsed plan of care.
--- NOTE | 2019-12-16 19:15 | NUR ---
NURSE NOTES: Received report from Cici ROJO.
--- NOTE | 2019-12-16 20:00 | NUR ---
RSE NOTES: Patient in bed awake, alert watching TV. Orally intubated; ETT 7.5/ 24cm lip line to vent settings AC:15, TV:450, FiO2:28%, PEEP:5, O2 saturation:100%. Patient with OGT feeding Vital AF running at 50ml/hr . HOB elevated. Ace intact and draining. IV line intact infusing NS at 50cc/hr. Bilateral wrist restraints on. ROM and skin assessed. Safety measures on; bed low, locked and alarm is on. Contact isolation maintained and observed. Call light within easy reach. No s/s of hypo/hyperglycemia. will continue plan of care.
--- NOTE | 2019-12-16 22:00 | NUR ---
NURSE NOTES: Turned and repositioned patient in bed. No fever. no diarrhea. no N/V. will continue plan of care.
--- NOTE | 2019-12-16 22:40 | General Progress Note ---
Assessment/Plan Problem List: (1) Dyspnea ICD Codes: R06.00 - Dyspnea, unspecified SNOMED: 165769983 (2) Hypothyroidism ICD Codes: E03.9 - Hypothyroidism, unspecified SNOMED: 51459594 (3) Obese ICD Codes: E66.9 - Obesity, unspecified SNOMED: 160799948, 544092219 (4) Psychosis ICD Codes: F29 - Unspecified psychosis not due to a substance or known physiological condition SNOMED: 55302477 (5) Respiratory failure ICD Codes: J96.90 - Respiratory failure, unspecified, unspecified whether with hypoxia or hypercapnia SNOMED: 778097156 (6) Respiratory distress ICD Codes: R06.03 - Acute respiratory distress SNOMED: 167421960 (7) Dyspnea ICD Codes: R06.00 - Dyspnea, unspecified SNOMED: 349803510 (8) Pneumonia ICD Codes: J18.9 - Pneumonia, unspecified organism SNOMED: 118465192 (9) Acute and chronic respiratory failure ICD Codes: J96.20 - Acute and chronic respiratory failure, unspecified whether with hypoxia or hypercapnia SNOMED: 11787889 (10) Diabetes mellitus type 2 in nonobese ICD Codes: E11.9 - Type 2 diabetes mellitus without complications SNOMED: 839516762 (11) CHF (congestive heart failure) ICD Codes: I50.9 - Heart failure, unspecified SNOMED: 49963998 Qualifiers: Qualified Codes: I50.9 - Heart failure, unspecified (12) Hypoxia ICD Codes: R09.02 - Hypoxemia SNOMED: 969405845 (13) Elevated d-dimer ICD Codes: R79.89 - Other specified abnormal findings of blood chemistry SNOMED: 782841571 (14) Schizophrenia ICD Codes: F20.9 - Schizophrenia, unspecified SNOMED: 82952108 (15) Parkinson disease ICD Codes: G20 - Parkinson's disease SNOMED: 37342452 Status: progressing Assessment/Plan: pyschosis h/o non compliance obesity lethargy reviewed chart and labs sepsis pna covid negative pleural effusion Subjective ROS Limited/Unobtainable: Yes Allergies: Coded Allergies: LITHIUM (Verified Allergy, Unknown, 02/07/19) Objective Last 24 Hour Vital Signs Date Time Temp Pulse Resp B/P (MAP) Pulse Ox O2 Delivery O2 Flow Rate FiO2 12/16/19 20:00 75 15 115/50 (71) 97 12/16/19 20:00 Mechanical Ventilator 12/16/19 20:00 28 12/16/19 19:37 81 18 28 12/16/19 19:00 76 17 115/49 (71) 97 12/16/19 18:00 78 16 120/48 (72) 96 12/16/19 17:00 75 15 122/48 (72) 97 12/16/19 16:29 78 12/16/19 16:00 28 12/16/19 16:00 Mechanical Ventilator 12/16/19 16:00 98.9 73 16 116/46 (69) 97 12/16/19 15:01 73 19 28 12/16/19 15:00 73 20 120/45 (70) 98 12/16/19 14:00 76 21 119/46 (70) 98 12/16/19 13:00 78 20 123/49 (73) 98 12/16/19 12:00 28 12/16/19 12:00 Mechanical Ventilator 12/16/19 12:00 77 20 123/50 (74) 98 12/16/19 12:00 74 12/16/19 11:39 98 12/16/19 11:39 28 12/16/19 11:27 80 17 35 12/16/19 11:00 74 16 118/47 (70) 100 12/16/19 10:00 75 16 123/47 (72) 99 12/16/19 09:00 75 16 126/49 (74) 99 12/16/19 08:28 74 12/16/19 08:00 35 12/16/19 08:00 98.5 85 22 131/50 (77) 100 12/16/19 08:00 Mechanical Ventilator 12/16/19 07:05 76 15 35 12/16/19 07:00 77 15 119/46 (70) 100 12/16/19 06:30 78 15 12/16/19 06:00 75 15 114/44 (67) 99 12/16/19 05:00 74 15 110/42 (64) 100 12/16/19 04:30 73 15 108/75 (86) 100 12/16/19 04:00 76 12/16/19 04:00 98.8 75 15 117/45 (69) 100 12/16/19 04:00 Mechanical Ventilator 12/16/19 04:00 35 12/16/19 03:30 76 16 119/47 (71) 99 12/16/19 03:15 72 15 35 12/16/19 03:00 78 17 114/49 (70) 98 12/16/19 02:00 77 15 110/42 (64) 98 12/16/19 01:00 75 15 123/46 (71) 100 12/16/19 00:00 Mechanical Ventilator 12/16/19 00:00 75 12/16/19 00:00 98.8 74 15 120/46 (70) 99 12/16/19 00:00 35 12/15/19 23:59 74 15 35 12/15/19 23:30 75 15 125/47 (73) 99 12/15/19 23:00 76 16 122/46 (71) 99 Intake and Output 12/15/19 12/16/19 19:00 07:00 Intake Total 1820 ml 1660.000 ml Output Total 2450 ml 500 ml Balance -630 ml 1160.000 ml Intake Free Water 30 ml 200 ml IV Total 1190 ml 800.000 ml Tube Feeding 600 ml 600 ml Other 60 ml Output Urine Total 2450 ml 500 ml Laboratory Tests 12/16/19 00:14: POC Whole Blood Glucose 103 12/16/19 01:20: Vancomycin Level Trough 8.3 12/16/19 04:08: White Blood Count 5.4, Red Blood Count 3.43L, Hemoglobin 11.0L, Hematocrit 35.4L , Mean Corpuscular Volume 103H, Mean Corpuscular Hemoglobin 32.0H, Mean Corpuscular Hemoglobin Concent 31.0L, Red Cell Distribution Width 13.3, Platelet Count 169, Mean Platelet Volume 6.0L, Neutrophils (%) (Auto) 65.8, Lymphocytes (%) (Auto) 22.6, Monocytes (%) (Auto) 8.7, Eosinophils (%) (Auto) 2.5, Basophils (%) (Auto) 0.4, Sodium Level 144, Potassium Level 4.0, Chloride Level 102, Carbon Dioxide Level 36H, Anion Gap 7, Blood Urea Nitrogen 19H, Creatinine 1.1, Estimat Glomerular Filtration Rate 47.8, Glucose Level 90, Calcium Level 7.5L 7/5/20 09:52: Arterial Blood pH 7.428, Arterial Blood Partial Pressure CO2 50.8H, Arterial Blood Partial Pressure O2 90.5, Arterial Blood HCO3 32.8H, Arterial Blood Oxygen Saturation 96.6, Arterial Blood Base Excess 7.3H, Raphael Test Positive Height (Feet): 5 Height (Inches): 7.00 Weight (Pounds): 212 Dani Perera MD Dec 16, 2019 22:40
[2019-12-17] VITALS (26 sets, daily range): BP systolic 100–139; BP diastolic 36–96
--- NOTE | 2019-12-17 | NUR ---
NURSE NOTES: Inserted IV line peripherally aseptic techniques on left F/A #22 patient tolerated procedure.
--- NOTE | 2019-12-17 02:00 | NUR ---
NURSE NOTES: Bed bath given tolerated well. all linen changed.
[2019-12-17] MEDS: NovoLOG Insulin Flexpen SUBQ SCH ×4 (05:29→17:15)
--- NOTE | 2019-12-17 06:00 | NUR ---
NURSE NOTES: NPO after 12mn for Abdominal ultrasound due to abnormal labs. Blood glucose 123mg/dl.
[2019-12-17 06:13] LABS: BASOPHILS % (AUTO) 1.1 % (0.0-2.0); EOSINOPHILS % (AUTO) 4.5 % (0.0-3.0); HEMATOCRIT 34.5 % (37.0-47.0); HEMOGLOBIN 10.8 G/DL (12.0-16.0); LYMPHOCYTES % (AUTO) 22.3 % (20.0-45.0); MEAN CORPUSCULAR VOLUME 103 FL (80-99); MONOCYTES % (AUTO) 9.8 % (1.0-10.0); NEUTROPHILS % (AUTO) 62.3 % (45.0-75.0); PLATELET COUNT 168 K/UL (150-450); RED BLOOD COUNT 3.34 M/UL (4.20-5.40); RED CELL DISTRIBUTION WIDTH 13.6 % (11.6-14.8); WHITE BLOOD COUNT 5.9 K/UL (4.8-10.8)
[2019-12-17 06:33] LABS: ALANINE AMINOTRANSFERASE 54 U/L (12-78); ALBUMIN 3.1 G/DL (3.4-5.0); ALKALINE PHOSPHATASE 43 U/L (46-116); ANION GAP 4 mmol/L (5-15); ASPARTATE AMINO TRANSFERASE 18 U/L (15-37); BILIRUBIN,TOTAL 0.5 MG/DL (0.2-1.0); BLOOD UREA NITROGEN 25 mg/dL (7-18); CARBON DIOXIDE 36 MMOL/L (21-32); CHLORIDE 106 MMOL/L (98-107); CREATININE 0.9 MG/DL (0.55-1.30); PHOSPHORUS 2.2 MG/DL (2.5-4.9); POTASSIUM 4.2 MMOL/L (3.5-5.1); SODIUM 146 MMOL/L (136-145)
--- NOTE | 2019-12-17 06:45 | General Progress Note ---
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 - Other specified diabetes mellitus without complications SNOMED: 739092078 (2) Parkinson disease ICD Codes: G20 - Parkinson's disease SNOMED: 67196773 (3) Schizophrenia ICD Codes: F20.9 - Schizophrenia, unspecified SNOMED: 04527780 (4) Hypertension ICD Codes: I10 - Essential (primary) hypertension SNOMED: 57563374 (5) Respiratory failure ICD Codes: J96.90 - Respiratory failure, unspecified, unspecified whether with hypoxia or hypercapnia SNOMED: 497619183 (6) Hypothyroidism ICD Codes: E03.9 - Hypothyroidism, unspecified SNOMED: 06403620 Status: progressing Assessment/Plan: continue Levothyroxine 75 mcg IV daily continue Novolog sliding scale every 6 hours hypoglycemia protocol in order Subjective ROS Limited/Unobtainable: Yes Allergies: Coded Allergies: LITHIUM (Verified Allergy, Unknown, 02/07/19) Subjective events noted intubated in icu glucose values are stable Item Value Date Time Bedside Blood Glucose 123 mg/dl H 12/17/19 0529 Bedside Blood Glucose 121 mg/dl H 12/17/19 0000 Bedside Blood Glucose 142 mg/dl H 12/16/19 1739 Bedside Blood Glucose 131 mg/dl H 12/16/19 1200 Bedside Blood Glucose 135 mg/dl H 12/16/19 0551 Bedside Blood Glucose 103 mg/dl 12/16/19 0024 Objective Last 24 Hour Vital Signs Date Time Temp Pulse Resp B/P (MAP) Pulse Ox O2 Delivery O2 Flow Rate FiO2 12/17/19 06:30 78 15 12/17/19 06:00 73 15 111/41 (64) 99 12/17/19 05:00 73 15 114/45 (68) 99 12/17/19 04:00 28 12/17/19 04:00 98.6 73 15 109/41 (63) 98 12/17/19 04:00 78 12/17/19 04:00 Mechanical Ventilator 12/17/19 03:00 73 15 113/42 (65) 99 12/17/19 03:00 74 16 28 12/17/19 02:00 75 15 109/42 (64) 97 12/17/19 01:00 74 15 117/46 (69) 97 12/17/19 00:00 98.3 79 17 121/44 (69) 98 12/17/19 00:00 28 12/17/19 00:00 Mechanical Ventilator 12/16/19 23:37 80 17 28 12/16/19 23:30 77 17 116/45 (68) 97 12/16/19 23:00 80 17 126/52 (76) 99 12/16/19 22:59 73 12/16/19 22:00 78 17 116/47 (70) 98 12/16/19 21:00 74 15 115/48 (70) 98 12/16/19 20:00 75 15 115/50 (71) 97 12/16/19 20:00 Mechanical Ventilator 12/16/19 20:00 84 12/16/19 20:00 28 12/16/19 19:37 81 18 28 12/16/19 19:14 78 12/16/19 19:00 76 17 115/49 (71) 97 12/16/19 18:00 78 16 120/48 (72) 96 12/16/19 17:00 75 15 122/48 (72) 97 12/16/19 16:29 78 12/16/19 16:00 28 12/16/19 16:00 Mechanical Ventilator 12/16/19 16:00 98.9 73 16 116/46 (69) 97 12/16/19 15:01 73 19 28 12/16/19 15:00 73 20 120/45 (70) 98 12/16/19 14:00 76 21 119/46 (70) 98 12/16/19 13:00 78 20 123/49 (73) 98 12/16/19 12:00 28 12/16/19 12:00 Mechanical Ventilator 12/16/19 12:00 77 20 123/50 (74) 98 12/16/19 12:00 74 12/16/19 11:39 98 12/16/19 11:39 28 12/16/19 11:27 80 17 35 12/16/19 11:00 74 16 118/47 (70) 100 12/16/19 10:00 75 16 123/47 (72) 99 12/16/19 09:00 75 16 126/49 (74) 99 12/16/19 08:28 74 12/16/19 08:00 35 12/16/19 08:00 98.5 85 22 131/50 (77) 100 12/16/19 08:00 Mechanical Ventilator 12/16/19 07:05 76 15 35 12/16/19 07:00 77 15 119/46 (70) 100 Intake and Output 12/16/19 12/17/19 19:00 07:00 Intake Total 1275 ml 750 ml Output Total 575 ml 465 ml Balance 700 ml 285 ml Intake Free Water 100 ml IV Total 575 ml 550 ml Tube Feeding 600 ml 100 ml Other 100 ml Output Urine Total 575 ml 465 ml Laboratory Tests 12/16/19 09:52: Arterial Blood pH 7.428, Arterial Blood Partial Pressure CO2 50.8H, Arterial Blood Partial Pressure O2 90.5, Arterial Blood HCO3 32.8H, Arterial Blood Oxygen Saturation 96.6, Arterial Blood Base Excess 7.3H, Raphael Test Positive 12/17/19 05:42: White Blood Count 5.9, Red Blood Count 3.34L, Hemoglobin 10.8L, Hematocrit 34.5L , Mean Corpuscular Volume 103H, Mean Corpuscular Hemoglobin 32.2H, Mean Corpuscular Hemoglobin Concent 31.2L, Red Cell Distribution Width 13.6, Platelet Count 168, Mean Platelet Volume 7.1, Neutrophils (%) (Auto) 62.3, Lymphocytes (%) (Auto) 22.3, Monocytes (%) (Auto) 9.8, Eosinophils (%) (Auto) 4.5H, Basophils (%) (Auto) 1.1, Sodium Level 146H, Potassium Level 4.2, Chloride Level 106, Carbon Dioxide Level 36H, Anion Gap 4L, Blood Urea Nitrogen 25H, Creatinine 0.9, Estimat Glomerular Filtration Rate > 60, Glucose Level 118H , Calcium Level 8.0L, Phosphorus Level 2.2L, Magnesium Level 1.9, Total Bilirubin 0.5, Aspartate Amino Transf (AST/SGOT) 18, Alanine Aminotransferase ( ALT/SGPT) 54, Alkaline Phosphatase 43L, Total Protein 6.3L, Albumin 3.1L, Globulin 3.2, Albumin/Globulin Ratio 1.0 Height (Feet): 5 Height (Inches): 7.00 Weight (Pounds): 211 General Appearance: other - intubated EENT: other - ETT Cardiovascular: tachycardia Respiratory/Chest: decreased breath sounds Abdomen: normal bowel sounds Objective Current Medications Medications (Trade) Dose Ordered Sig/Angie Route PRN Reason Start Time Stop Time Status Last Admin Dose Admin Acetaminophen (Tylenol) 650 mg Q6H PRN ORAL Mild Pain (Pain Scale 1-3) 12/12/19 12:30 01/11/20 12:29 Acetaminophen (Tylenol) 1,000 mg Q6H PRN ORAL MODERATE PAIN 12/12/19 12:30 01/11/20 12:29 Amantadine HCl (Symmetrel) 100 mg TWICE A DAY GT 12/15/19 18:00 01/11/20 08:59 12/16/19 17:10 Aspirin (Ecotrin) 325 mg DAILY ORAL 12/13/19 09:00 01/26/20 08:59 12/16/19 08:12 Atorvastatin Calcium (Lipitor) 10 mg BEDTIME GT 12/15/19 21:00 03/11/20 20:59 12/16/19 21:20 Calcium Carbonate (Os-Octavio) 1,250 mg THREE TIMES A DAY GT 12/15/19 18:00 03/11/20 09:59 12/16/19 17:10 Cefepime HCl 1 gm/ Dextrose 55 ml @ 110 mls/hr Q24H IVPB 12/12/19 16:00 12/19/19 15:59 12/16/19 15:24 Clonidine HCl (Catapres Tab) 0.1 mg Q6H PRN GT For high BP over 160 systolic 12/15/19 16:30 03/11/20 12:30 Dextrose (Dextrose 50%) 25 ml Q30M PRN IV Hypoglycemia 12/13/19 07:15 03/12/20 07:14 Dextrose (Dextrose 50%) 50 ml Q30M PRN IV Hypoglycemia 12/13/19 07:15 03/12/20 07:14 Divalproex Sodium (Depakote Sprinkles) 250 mg EVERY 12 HOURS NG 12/13/19 21:00 01/12/20 20:59 12/16/19 21:20 Docusate Sodium (Colace) 100 mg TWICE A DAY NG 12/15/19 18:00 01/14/20 17:59 12/16/19 17:10 Insulin Aspart (NovoLOG) EVERY 6 HOURS SUBQ 12/13/19 12:00 03/12/20 11:59 12/16/19 17:39 Levothyroxine Sodium (Synthroid) 75 mcg DAILY IV 12/13/19 09:00 01/11/20 09:29 12/16/19 09:02 Lorazepam (Ativan) 1 mg Q6H PRN GT For Anxiety 12/15/19 16:30 12/19/19 12:30 Nitroglycerin (Ntg) 0.4 mg Q5MIN X 3 DOSES PRN SL CHEST PAIN 12/12/19 12:00 01/10/20 21:44 Olanzapine (ZyPREXA) 5 mg BID GT 12/15/19 18:00 01/26/20 08:59 12/16/19 17:09 Pantoprazole (Protonix) 40 mg EVERY 12 HOURS IVP 12/14/19 09:00 01/13/20 08:59 12/16/19 21:19 Phosphorus (Phospha 250 Neutral) 250 mg THREE TIMES A DAY GT 12/15/19 09:00 01/14/20 08:59 12/16/19 17:09 Potassium Chloride (K-Dur) 40 meq TWICE A DAY NG 12/14/19 10:30 03/13/20 10:29 12/16/19 17:10 Sodium Chloride 1,000 ml @ 50 mls/hr Q20H IV 12/12/19 12:30 01/11/20 12:29 12/16/19 15:30 Jabari Adams MD Dec 17, 2019 06:45
--- NOTE | 2019-12-17 07:00 | NUR ---
NURSE NOTES: Received report from DARREL Estrada. Patient is observed in bed, awake, able to follow simple commands. Patient is orally intubated with vent settings AC 15, TV 450, FiO2 28% and PEEP 5. RT at bedside for weaning. Patient is saturating 100% at this time. Patient has OGT in place with TF on hold to prep for abdominal ultrasound. Patient has left FA 22g patent and asymptomatic with IV fluids NS 50ml/hr. Ace catheter noted in place, draining yellow urine output to gravity. Patient has bilateral soft wrist restraints in place to avoid self extubation. No s/s of distress at this time. All needs attended to. Safety precautions in place, bed locked, alarmed, and in lowest position, side rails up x3, and call light left within reach. Will continue plan of care and will continue to monitor patient.
--- NOTE | 2019-12-17 07:05 | NUR ---
HAND-OFF: Report given to Cici ROJO.
--- NOTE | 2019-12-17 07:20 | NUR ---
NURSE NOTES: Dr Ochoa present in the unit updated Dr regarding patient's condition; noted new orders in the system.
--- NOTE | 2019-12-17 07:49 | Nephrology Progress Note ---
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 Respiratory distress most likely secondary to pulmonary edema and or COPD exacerbation. Hyponatremia. Obese. Hypothyroidism. Elevated d-dimer. Elevated liver enzymes Plan December 16: Remains intubated. Full code. Weaning in process. Stable from renal standpoint of view. December 15: Remains vented. Electrolytes improved. Continue per consultants. December 14: Patient remains in ICU intubated on ventilator. Potassium low. Phosphorus low. Supplements given. Renal parameters are stable. Continue per consultants. December 13: Patient remains in ICU intubated on ventilator. Discussed with RN. Labs reviewed. Creatinine 1.3. Potassium supplements given. Mag sulfate IV 2 g given. Continue per consultants. December 12: Patient in ICU. Intubated on ventilator. Discussed with RN. Labs reviewed. Potassium supplement given. Continue per consultants. Arterial blood gas indicative of CO2 retention. Patient on the way to ICU for intubation. Continue per pulmonary management. Pulmonary support, Check 2D echocardiogram. Previous 2D echo had a 50% ejection fraction. Keep blood sugar and blood pressure in check. Thyroid panel. Monitor electrolytes and renal parameters. Afterload reduction. Diuretics Monitor serum calcium, supplements via NG tube. Per orders. Subjective ROS Limited/Unobtainable: Yes Objective Objective Last 24 Hour Vital Signs Date Time Temp Pulse Resp B/P (MAP) Pulse Ox O2 Delivery O2 Flow Rate FiO2 12/17/19 07:14 77 16 28 12/17/19 07:00 74 15 116/42 (66) 97 12/17/19 06:30 78 15 12/17/19 06:00 73 15 111/41 (64) 99 12/17/19 05:00 73 15 114/45 (68) 99 12/17/19 04:00 28 12/17/19 04:00 98.6 73 15 109/41 (63) 98 12/17/19 04:00 78 12/17/19 04:00 Mechanical Ventilator 12/17/19 03:00 73 15 113/42 (65) 99 12/17/19 03:00 74 16 28 12/17/19 02:00 75 15 109/42 (64) 97 7/6/20 01:00 74 15 117/46 (69) 97 12/17/19 00:00 98.3 79 17 121/44 (69) 98 12/17/19 00:00 28 12/17/19 00:00 Mechanical Ventilator 12/16/19 23:37 80 17 28 12/16/19 23:30 77 17 116/45 (68) 97 12/16/19 23:00 80 17 126/52 (76) 99 12/16/19 22:59 73 12/16/19 22:00 78 17 116/47 (70) 98 12/16/19 21:00 74 15 115/48 (70) 98 12/16/19 20:00 75 15 115/50 (71) 97 12/16/19 20:00 Mechanical Ventilator 12/16/19 20:00 84 12/16/19 20:00 28 12/16/19 19:37 81 18 28 12/16/19 19:14 78 12/16/19 19:00 76 17 115/49 (71) 97 12/16/19 18:00 78 16 120/48 (72) 96 12/16/19 17:00 75 15 122/48 (72) 97 12/16/19 16:29 78 12/16/19 16:00 28 12/16/19 16:00 Mechanical Ventilator 12/16/19 16:00 98.9 73 16 116/46 (69) 97 12/16/19 15:01 73 19 28 12/16/19 15:00 73 20 120/45 (70) 98 12/16/19 14:00 76 21 119/46 (70) 98 12/16/19 13:00 78 20 123/49 (73) 98 12/16/19 12:00 28 12/16/19 12:00 Mechanical Ventilator 12/16/19 12:00 77 20 123/50 (74) 98 12/16/19 12:00 74 12/16/19 11:39 98 12/16/19 11:39 28 12/16/19 11:27 80 17 35 12/16/19 11:00 74 16 118/47 (70) 100 12/16/19 10:00 75 16 123/47 (72) 99 12/16/19 09:00 75 16 126/49 (74) 99 12/16/19 08:28 74 12/16/19 08:00 35 12/16/19 08:00 98.5 85 22 131/50 (77) 100 12/16/19 08:00 Mechanical Ventilator Intake and Output 12/16/19 12/17/19 19:00 07:00 Intake Total 1275 ml 750 ml Output Total 575 ml 465 ml Balance 700 ml 285 ml Intake Free Water 100 ml IV Total 575 ml 550 ml Tube Feeding 600 ml 100 ml Other 100 ml Output Urine Total 575 ml 465 ml Laboratory Tests 12/16/19 09:52: Arterial Blood pH 7.428, Arterial Blood Partial Pressure CO2 50.8H, Arterial Blood Partial Pressure O2 90.5, Arterial Blood HCO3 32.8H, Arterial Blood Oxygen Saturation 96.6, Arterial Blood Base Excess 7.3H, Raphael Test Positive 12/17/19 05:42: White Blood Count 5.9, Red Blood Count 3.34L, Hemoglobin 10.8L, Hematocrit 34.5L , Mean Corpuscular Volume 103H, Mean Corpuscular Hemoglobin 32.2H, Mean Corpuscular Hemoglobin Concent 31.2L, Red Cell Distribution Width 13.6, Platelet Count 168, Mean Platelet Volume 7.1, Neutrophils (%) (Auto) 62.3, Lymphocytes (%) (Auto) 22.3, Monocytes (%) (Auto) 9.8, Eosinophils (%) (Auto) 4.5H, Basophils (%) (Auto) 1.1, Sodium Level 146H, Potassium Level 4.2, Chloride Level 106, Carbon Dioxide Level 36H, Anion Gap 4L, Blood Urea Nitrogen 25H, Creatinine 0.9, Estimat Glomerular Filtration Rate > 60, Glucose Level 118H , Calcium Level 8.0L, Phosphorus Level 2.2L, Magnesium Level 1.9, Total Bilirubin 0.5, Aspartate Amino Transf (AST/SGOT) 18, Alanine Aminotransferase ( ALT/SGPT) 54, Alkaline Phosphatase 43L, Total Protein 6.3L, Albumin 3.1L, Globulin 3.2, Albumin/Globulin Ratio 1.0 12/17/19 07:28: Arterial Blood pH 7.421, Arterial Blood Partial Pressure CO2 53.2H, Arterial Blood Partial Pressure O2 71.3L, Arterial Blood HCO3 33.8H, Arterial Blood Oxygen Saturation 93.7L, Arterial Blood Base Excess 8.0H, Raphael Test Positive Height (Feet): 5 Height (Inches): 7.00 Weight (Pounds): 211 General Appearance: no apparent distress EENT: other - Remains intubated on ventilator Cardiovascular: normal rate Respiratory/Chest: decreased breath sounds Abdomen: soft, distended Bryan Ochoa MD Dec 17, 2019 07:49
[2019-12-17] MEDS ORDERED: Potassium Phosphate 20 MM in NS 275 ML IV ONE (08:00)
[2019-12-17] MEDS: Pantoprazole Inj IVP SCH ×2 (08:26→20:43)
--- NOTE | 2019-12-17 08:30 | NUR ---
NURSE NOTES: Patient remains in bed with eyes closed, appears to be sleeping but remains arousable to painful stimuli. Patient remains orally intubated, tolerating vent settings at this time. OGT remains in place, no gastric residual noted, TF continuous. Scheduled AM medications administered. Patient does not have s/s of pain/discomfort. No s/s of distress at this time. Gauze applied to left femoral old TLC site; leaking. Purewick remains in place; urostomy remains draining to gravity. Patient left clean and dry at this time. Will continue to monitor. Addendum: 12/17/19 at 0941 by Cici Davis RN Please disregard;entered in wrong chart/patient.
[2019-12-17] MEDS: Docusate 100mg/10ml Liq NG SCH ×2 (09:00→17:14)
[2019-12-17] MEDS: Depakote 125mg Sprinkles NG SCH ×2 (09:00→20:44)
[2019-12-17] MEDS: Os-Cal (Oyster Shell) 500mg tab GT SCH ×3 (09:00→17:14)
[2019-12-17] MEDS: Aspirin EC 325mg tab ORAL SCH (09:00)
[2019-12-17] MEDS: Amantadine 100mg cap GT SCH ×2 (09:00→17:15)
[2019-12-17] MEDS: Phospha 250 Neutral tab GT SCH ×3 (09:00→17:15)
--- NOTE | 2019-12-17 09:20 | NUR ---
NURSE NOTES: RT at bedside for weaning.
--- NOTE | 2019-12-17 09:26 | NUR ---
RADIOLOGY DEPT., CHEST X-RAY DONE.-P.DYE
--- NOTE | 2019-12-17 09:40 | NUR ---
NURSE NOTES: agricultural technician Jennifer present at bedside for abdominal ultrasound. Patient remains NPO at this time; TF on hold.
[2019-12-17] MEDS ORDERED: Tubing IV Secondary IV ONE (09:54)
[2019-12-17] MEDS ORDERED: NS 275ml ONE (09:54)
--- NOTE | 2019-12-17 10:28 | Pulmonology Progress Note ---
Subjective ROS Limited/Unobtainable: Yes Interval Events: Remains intubated; weaning well Constitutional: Denies: fever HEENT: Repors: no symptoms Respiratory: Reports: no symptoms Cardiovascular: Reports: no symptoms Gastrointestinal/Abdominal: Reports: no symptoms Genitourinary: Reports: no symptoms Allergies: Coded Allergies: LITHIUM (Verified Allergy, Unknown, 02/07/19) Objective Last 24 Hour Vital Signs Date Time Temp Pulse Resp B/P (MAP) Pulse Ox O2 Delivery O2 Flow Rate FiO2 12/17/19 10:00 78 19 119/52 (74) 97 12/17/19 09:18 73 20 28 28 12/17/19 09:00 74 15 118/59 (78) 100 12/17/19 08:00 28 12/17/19 08:00 80 12/17/19 08:00 97.8 81 18 109/42 (64) 96 12/17/19 08:00 Mechanical Ventilator 12/17/19 07:14 77 16 28 12/17/19 07:00 74 15 116/42 (66) 97 12/17/19 06:30 78 15 12/17/19 06:00 73 15 111/41 (64) 99 12/17/19 05:00 73 15 114/45 (68) 99 12/17/19 04:00 28 12/17/19 04:00 98.6 73 15 109/41 (63) 98 12/17/19 04:00 78 12/17/19 04:00 Mechanical Ventilator 12/17/19 03:00 73 15 113/42 (65) 99 12/17/19 03:00 74 16 28 12/17/19 02:00 75 15 109/42 (64) 97 12/17/19 01:00 74 15 117/46 (69) 97 12/17/19 00:00 98.3 79 17 121/44 (69) 98 12/17/19 00:00 28 12/17/19 00:00 Mechanical Ventilator 12/16/19 23:37 80 17 28 12/16/19 23:30 77 17 116/45 (68) 97 12/16/19 23:00 80 17 126/52 (76) 99 12/16/19 22:59 73 12/16/19 22:00 78 17 116/47 (70) 98 12/16/19 21:00 74 15 115/48 (70) 98 12/16/19 20:00 75 15 115/50 (71) 97 12/16/19 20:00 Mechanical Ventilator 12/16/19 20:00 84 12/16/19 20:00 28 12/16/19 19:37 81 18 28 12/16/19 19:14 78 12/16/19 19:00 76 17 115/49 (71) 97 12/16/19 18:00 78 16 120/48 (72) 96 12/16/19 17:00 75 15 122/48 (72) 97 12/16/19 16:29 78 12/16/19 16:00 28 12/16/19 16:00 Mechanical Ventilator 12/16/19 16:00 98.9 73 16 116/46 (69) 97 12/16/19 15:01 73 19 28 12/16/19 15:00 73 20 120/45 (70) 98 12/16/19 14:00 76 21 119/46 (70) 98 12/16/19 13:00 78 20 123/49 (73) 98 12/16/19 12:00 28 12/16/19 12:00 Mechanical Ventilator 12/16/19 12:00 77 20 123/50 (74) 98 12/16/19 12:00 74 12/16/19 11:39 98 12/16/19 11:39 28 12/16/19 11:27 80 17 35 12/16/19 11:00 74 16 118/47 (70) 100 Intake and Output 12/16/19 12/17/19 19:00 07:00 Intake Total 1275 ml 800 ml Output Total 575 ml 505 ml Balance 700 ml 295 ml Intake Free Water 100 ml IV Total 575 ml 600 ml Tube Feeding 600 ml 100 ml Other 100 ml Output Urine Total 575 ml 505 ml General Appearance: no acute distress Respiratory: chest wall non-tender, lungs clear Cardiovascular: normal peripheral pulses, normal rate Abdomen: normal bowel sounds Laboratory Tests 12/17/19 05:42: White Blood Count 5.9, Red Blood Count 3.34L, Hemoglobin 10.8L, Hematocrit 34.5L , Mean Corpuscular Volume 103H, Mean Corpuscular Hemoglobin 32.2H, Mean Corpuscular Hemoglobin Concent 31.2L, Red Cell Distribution Width 13.6, Platelet Count 168, Mean Platelet Volume 7.1, Neutrophils (%) (Auto) 62.3, Lymphocytes (%) (Auto) 22.3, Monocytes (%) (Auto) 9.8, Eosinophils (%) (Auto) 4.5H, Basophils (%) (Auto) 1.1, Sodium Level 146H, Potassium Level 4.2, Chloride Level 106, Carbon Dioxide Level 36H, Anion Gap 4L, Blood Urea Nitrogen 25H, Creatinine 0.9, Estimat Glomerular Filtration Rate > 60, Glucose Level 118H , Calcium Level 8.0L, Phosphorus Level 2.2L, Magnesium Level 1.9, Total Bilirubin 0.5, Aspartate Amino Transf (AST/SGOT) 18, Alanine Aminotransferase ( ALT/SGPT) 54, Alkaline Phosphatase 43L, Total Protein 6.3L, Albumin 3.1L, Globulin 3.2, Albumin/Globulin Ratio 1.0 12/17/19 07:28: Arterial Blood pH 7.421, Arterial Blood Partial Pressure CO2 53.2H, Arterial Blood Partial Pressure O2 71.3L, Arterial Blood HCO3 33.8H, Arterial Blood Oxygen Saturation 93.7L, Arterial Blood Base Excess 8.0H, Raphael Test Positive Current Medications Medications (Trade) Dose Ordered Sig/Angie Route PRN Reason Start Time Stop Time Status Last Admin Dose Admin Acetaminophen (Tylenol) 650 mg Q6H PRN ORAL Mild Pain (Pain Scale 1-3) 12/12/19 12:30 01/11/20 12:29 Acetaminophen (Tylenol) 1,000 mg Q6H PRN ORAL MODERATE PAIN 12/12/19 12:30 01/11/20 12:29 Amantadine HCl (Symmetrel) 100 mg TWICE A DAY GT 12/15/19 18:00 01/11/20 08:59 12/16/19 17:10 Aspirin (Ecotrin) 325 mg DAILY ORAL 12/13/19 09:00 01/26/20 08:59 12/16/19 08:12 Atorvastatin Calcium (Lipitor) 10 mg BEDTIME GT 12/15/19 21:00 03/11/20 20:59 12/16/19 21:20 Calcium Carbonate (Os-Octavio) 1,250 mg THREE TIMES A DAY GT 12/15/19 18:00 03/11/20 09:59 12/16/19 17:10 Cefepime HCl 1 gm/ Dextrose 55 ml @ 110 mls/hr Q24H IVPB 12/12/19 16:00 12/19/19 15:59 12/16/19 15:24 Clonidine HCl (Catapres Tab) 0.1 mg Q6H PRN GT For high BP over 160 systolic 12/15/19 16:30 03/11/20 12:30 Dextrose (Dextrose 50%) 25 ml Q30M PRN IV Hypoglycemia 12/13/19 07:15 03/12/20 07:14 Dextrose (Dextrose 50%) 50 ml Q30M PRN IV Hypoglycemia 12/13/19 07:15 03/12/20 07:14 Divalproex Sodium (Depakote Sprinkles) 250 mg EVERY 12 HOURS NG 12/13/19 21:00 01/12/20 20:59 12/16/19 21:20 Docusate Sodium (Colace) 100 mg TWICE A DAY NG 12/15/19 18:00 01/14/20 17:59 12/16/19 17:10 Insulin Aspart (NovoLOG) EVERY 6 HOURS SUBQ 12/13/19 12:00 03/12/20 11:59 12/16/19 17:39 Levothyroxine Sodium (Synthroid) 75 mcg DAILY IV 12/13/19 09:00 01/11/20 09:29 12/17/19 08:26 Lorazepam (Ativan) 1 mg Q6H PRN GT For Anxiety 12/15/19 16:30 12/19/19 12:30 Nitroglycerin (Ntg) 0.4 mg Q5MIN X 3 DOSES PRN SL CHEST PAIN 12/12/19 12:00 01/10/20 21:44 Olanzapine (ZyPREXA) 5 mg BID GT 12/15/19 18:00 01/26/20 08:59 12/16/19 17:09 Pantoprazole (Protonix) 40 mg EVERY 12 HOURS IVP 12/14/19 09:00 01/13/20 08:59 12/17/19 08:26 Phosphorus (Phospha 250 Neutral) 250 mg THREE TIMES A DAY GT 12/15/19 09:00 01/14/20 08:59 12/16/19 17:09 Potassium Phosphate 20 mm/ Sodium Chloride 281.6667 ml @ 46.944 m... ONCE ONCE IV 12/17/19 08:00 7/6/20 13:59 12/17/19 08:24 Potassium Chloride (K-Dur) 40 meq TWICE A DAY NG 12/14/19 10:30 03/13/20 10:29 12/16/19 17:10 Sodium Chloride 1,000 ml @ 50 mls/hr Q20H IV 12/12/19 12:30 01/11/20 12:29 12/16/19 15:30 Assessment/Plan Assessment/Plan IMPRESSION: 1. Respiratory failure. 2. Has healthcare-associated pneumonia; is negative for COVID-19. 3. Psych disorder. 4. Obesity. 5. Hypertension. DISCUSSION: Continue broad spectrum antibiotics. On propofol. I will manage respirator, currently on AC mode 50% FiO2 and PEEP of 5. Has negative COVID-19 swab. I will follow carefully. Continue weaning Off Lasix given metabolic alkalosis Emerita Fan Omar Syed MD Dec 17, 2019 10:27
--- NOTE | 2019-12-17 10:48 | Infectious Diseases Prog Note ---
Assessment/Plan Assessment/Plan IMPRESSION: COPD exacerbation, Pneumonia, COID19 X 2: negative Acute respiratory failure with hypercapnia Dementia, Parkinson, Mitral valve regurgitation, Hypertension, Hypothyroidism. Hypokalemia RECOMMENDATION: Continue IV cefepime. Case was D/W RN Subjective ROS Limited/Unobtainable: Yes Respiratory: Reports: other - on weaning process Allergies: Coded Allergies: LITHIUM (Verified Allergy, Unknown, 02/07/19) Objective Last 24 Hour Vital Signs Date Time Temp Pulse Resp B/P (MAP) Pulse Ox O2 Delivery O2 Flow Rate FiO2 12/17/19 10:00 78 19 119/52 (74) 97 12/17/19 09:18 73 20 28 28 12/17/19 09:00 74 15 118/59 (78) 100 12/17/19 08:00 28 12/17/19 08:00 80 12/17/19 08:00 97.8 81 18 109/42 (64) 96 12/17/19 08:00 Mechanical Ventilator 12/17/19 07:14 77 16 28 12/17/19 07:00 74 15 116/42 (66) 97 12/17/19 06:30 78 15 12/17/19 06:00 73 15 111/41 (64) 99 12/17/19 05:00 73 15 114/45 (68) 99 12/17/19 04:00 28 12/17/19 04:00 98.6 73 15 109/41 (63) 98 12/17/19 04:00 78 12/17/19 04:00 Mechanical Ventilator 12/17/19 03:00 73 15 113/42 (65) 99 12/17/19 03:00 74 16 28 12/17/19 02:00 75 15 109/42 (64) 97 12/17/19 01:00 74 15 117/46 (69) 97 12/17/19 00:00 98.3 79 17 121/44 (69) 98 12/17/19 00:00 28 12/17/19 00:00 Mechanical Ventilator 12/16/19 23:37 80 17 28 12/16/19 23:30 77 17 116/45 (68) 97 12/16/19 23:00 80 17 126/52 (76) 99 12/16/19 22:59 73 12/16/19 22:00 78 17 116/47 (70) 98 12/16/19 21:00 74 15 115/48 (70) 98 12/16/19 20:00 75 15 115/50 (71) 97 12/16/19 20:00 Mechanical Ventilator 12/16/19 20:00 84 12/16/19 20:00 28 12/16/19 19:37 81 18 28 12/16/19 19:14 78 12/16/19 19:00 76 17 115/49 (71) 97 12/16/19 18:00 78 16 120/48 (72) 96 12/16/19 17:00 75 15 122/48 (72) 97 12/16/19 16:29 78 12/16/19 16:00 28 12/16/19 16:00 Mechanical Ventilator 12/16/19 16:00 98.9 73 16 116/46 (69) 97 12/16/19 15:01 73 19 28 12/16/19 15:00 73 20 120/45 (70) 98 12/16/19 14:00 76 21 119/46 (70) 98 12/16/19 13:00 78 20 123/49 (73) 98 12/16/19 12:00 28 12/16/19 12:00 Mechanical Ventilator 12/16/19 12:00 77 20 123/50 (74) 98 12/16/19 12:00 74 12/16/19 11:39 98 12/16/19 11:39 28 12/16/19 11:27 80 17 35 12/16/19 11:00 74 16 118/47 (70) 100 Height (Feet): 5 Height (Inches): 7.00 Weight (Pounds): 211 HEENT: mucous membranes moist Respiratory/Chest: lungs clear, other - on ventilator Cardiovascular: normal rate Abdomen: soft, non tender, other - orogastric tube Extremities: no edema Neurologic/Psychiatric: alert, responsive Laboratory Tests Test 12/17/19 05:42 12/17/19 07:28 White Blood Count 5.9 K/UL (4.8-10.8) Red Blood Count 3.34 M/UL (4.20-5.40) L Hemoglobin 10.8 G/DL (12.0-16.0) L Hematocrit 34.5 % (37.0-47.0) L Mean Corpuscular Volume 103 FL (80-99) H Mean Corpuscular Hemoglobin 32.2 PG (27.0-31.0) H Mean Corpuscular Hemoglobin Concent 31.2 G/DL (32.0-36.0) L Red Cell Distribution Width 13.6 % (11.6-14.8) Platelet Count 168 K/UL (150-450) Mean Platelet Volume 7.1 FL (6.5-10.1) Neutrophils (%) (Auto) 62.3 % (45.0-75.0) Lymphocytes (%) (Auto) 22.3 % (20.0-45.0) Monocytes (%) (Auto) 9.8 % (1.0-10.0) Eosinophils (%) (Auto) 4.5 % (0.0-3.0) H Basophils (%) (Auto) 1.1 % (0.0-2.0) Sodium Level 146 MMOL/L (136-145) H Potassium Level 4.2 MMOL/L (3.5-5.1) Chloride Level 106 MMOL/L (98-107) Carbon Dioxide Level 36 MMOL/L (21-32) H Anion Gap 4 mmol/L (5-15) L Blood Urea Nitrogen 25 mg/dL (7-18) H Creatinine 0.9 MG/DL (0.55-1.30) Estimat Glomerular Filtration Rate > 60 mL/min (>60) Glucose Level 118 MG/DL (74-106) H Calcium Level 8.0 MG/DL (8.5-10.1) L Phosphorus Level 2.2 MG/DL (2.5-4.9) L Magnesium Level 1.9 MG/DL (1.8-2.4) Total Bilirubin 0.5 MG/DL (0.2-1.0) Aspartate Amino Transf (AST/SGOT) 18 U/L (15-37) Alanine Aminotransferase (ALT/SGPT) 54 U/L (12-78) Alkaline Phosphatase 43 U/L (46-116) L Total Protein 6.3 G/DL (6.4-8.2) L Albumin 3.1 G/DL (3.4-5.0) L Globulin 3.2 g/dL Albumin/Globulin Ratio 1.0 (1.0-2.7) Arterial Blood pH 7.421 (7.350-7.450) Arterial Blood Partial Pressure CO2 53.2 mmHg (35.0-45.0) H Arterial Blood Partial Pressure O2 71.3 mmHg (75.0-100.0) L Arterial Blood HCO3 33.8 mmol/L (22.0-26.0) H Arterial Blood Oxygen Saturation 93.7 % (95-100) L Arterial Blood Base Excess 8.0 (-2-2) H Raphael Test Positive Current Medications Medications (Trade) Dose Ordered Sig/Angie Route PRN Reason Start Time Stop Time Status Last Admin Dose Admin Acetaminophen (Tylenol) 650 mg Q6H PRN ORAL Mild Pain (Pain Scale 1-3) 12/12/19 12:30 01/11/20 12:29 Acetaminophen (Tylenol) 1,000 mg Q6H PRN ORAL MODERATE PAIN 12/12/19 12:30 01/11/20 12:29 Amantadine HCl (Symmetrel) 100 mg TWICE A DAY GT 12/15/19 18:00 01/11/20 08:59 12/16/19 17:10 Aspirin (Ecotrin) 325 mg DAILY ORAL 12/13/19 09:00 01/26/20 08:59 12/16/19 08:12 Atorvastatin Calcium (Lipitor) 10 mg BEDTIME GT 12/15/19 21:00 03/11/20 20:59 12/16/19 21:20 Calcium Carbonate (Os-Octavio) 1,250 mg THREE TIMES A DAY GT 12/15/19 18:00 03/11/20 09:59 12/16/19 17:10 Cefepime HCl 1 gm/ Dextrose 55 ml @ 110 mls/hr Q24H IVPB 12/12/19 16:00 12/19/19 15:59 12/16/19 15:24 Clonidine HCl (Catapres Tab) 0.1 mg Q6H PRN GT For high BP over 160 systolic 12/15/19 16:30 03/11/20 12:30 Dextrose (Dextrose 50%) 25 ml Q30M PRN IV Hypoglycemia 12/13/19 07:15 03/12/20 07:14 Dextrose (Dextrose 50%) 50 ml Q30M PRN IV Hypoglycemia 12/13/19 07:15 03/12/20 07:14 Divalproex Sodium (Depakote Sprinkles) 250 mg EVERY 12 HOURS NG 12/13/19 21:00 01/12/20 20:59 12/16/19 21:20 Docusate Sodium (Colace) 100 mg TWICE A DAY NG 12/15/19 18:00 01/14/20 17:59 12/16/19 17:10 Insulin Aspart (NovoLOG) EVERY 6 HOURS SUBQ 12/13/19 12:00 03/12/20 11:59 12/16/19 17:39 Levothyroxine Sodium (Synthroid) 75 mcg DAILY IV 12/13/19 09:00 01/11/20 09:29 12/17/19 08:26 Lorazepam (Ativan) 1 mg Q6H PRN GT For Anxiety 12/15/19 16:30 12/19/19 12:30 Nitroglycerin (Ntg) 0.4 mg Q5MIN X 3 DOSES PRN SL CHEST PAIN 12/12/19 12:00 01/10/20 21:44 Olanzapine (ZyPREXA) 5 mg BID GT 12/15/19 18:00 01/26/20 08:59 12/16/19 17:09 Pantoprazole (Protonix) 40 mg EVERY 12 HOURS IVP 12/14/19 09:00 01/13/20 08:59 12/17/19 08:26 Phosphorus (Phospha 250 Neutral) 250 mg THREE TIMES A DAY GT 12/15/19 09:00 01/14/20 08:59 12/16/19 17:09 Potassium Phosphate 20 mm/ Sodium Chloride 281.6667 ml @ 46.944 m... ONCE ONCE IV 12/17/19 08:00 12/17/19 13:59 12/17/19 08:24 Potassium Chloride (K-Dur) 40 meq TWICE A DAY NG 12/14/19 10:30 03/13/20 10:29 12/16/19 17:10 Sodium Chloride 1,000 ml @ 50 mls/hr Q20H IV 12/12/19 12:30 01/11/20 12:29 12/16/19 15:30 Lei Chan MD Dec 17, 2019 10:48
--- NOTE | 2019-12-17 10:50 | NUR ---
NURSE NOTES: Abdominal ultrasound completed, Dr Vidal ordered to resume TF but TF remains on hold at this time, patient is weaning. Will continue to monitor.
--- NOTE | 2019-12-17 12:04 | CDS Physician Query ---
Clarification is required for compliance, coding accuracy, and to reflect severity of illness for this patient Dear Dr. Lei Chan Date: 12/17/2019 Supervisor/CDS Name: Gloria Tellez Clinical Documentation states: Patient has history of CHF, COPD, schizophrenia, and history of noncompliance and removing oxygen at the facility came in because of dyspnea...Respiratory failure 12/12 Progress note: Pneumonia...intubated, sepsis Vitals on admit: WBC 4.9, MA 93, RR 23, Temp 99.0 Clarification is needed for one (or more) of the following conditions in order to accurately assign the "present on admission' indicator. Please choose the answer that best indicates whether the associated condition was present at the time of the order for inpatient admission. Thank you. Was the Sepsis Present on admission? [] YES [] NO [] Clinically Undeterminable Physician signature Date Please also document in your Progress Notes and/or Discharge Summary and indicate if the condition was present on admission. ALKA
--- NOTE | 2019-12-17 12:05 | General Progress Note ---
Assessment/Plan Status: progressing Assessment/Plan: Assessment - Resp failure - r/o COVID -- x 2 negative - COPD - HTN - Anemia - Abnormal LFT Recommendations - TF on hold for possible extubation - Elevate HOB - abx - follow labs - f/u hepatitis serologies -repeat labs Subjective ROS Limited/Unobtainable: No Allergies: Coded Allergies: LITHIUM (Verified Allergy, Unknown, 02/07/19) Objective Last 24 Hour Vital Signs Date Time Temp Pulse Resp B/P (MAP) Pulse Ox O2 Delivery O2 Flow Rate FiO2 12/17/19 11:35 82 20 28 12/17/19 11:00 79 22 127/50 (75) 96 12/17/19 10:00 78 19 119/52 (74) 97 12/17/19 09:18 73 20 28 28 12/17/19 09:00 74 15 118/59 (78) 100 12/17/19 08:00 28 12/17/19 08:00 80 12/17/19 08:00 97.8 81 18 109/42 (64) 96 12/17/19 08:00 Mechanical Ventilator 12/17/19 07:14 77 16 28 12/17/19 07:00 74 15 116/42 (66) 97 12/17/19 06:30 78 15 12/17/19 06:00 73 15 111/41 (64) 99 12/17/19 05:00 73 15 114/45 (68) 99 12/17/19 04:00 28 12/17/19 04:00 98.6 73 15 109/41 (63) 98 12/17/19 04:00 78 12/17/19 04:00 Mechanical Ventilator 12/17/19 03:00 73 15 113/42 (65) 99 12/17/19 03:00 74 16 28 12/17/19 02:00 75 15 109/42 (64) 97 12/17/19 01:00 74 15 117/46 (69) 97 12/17/19 00:00 98.3 79 17 121/44 (69) 98 12/17/19 00:00 28 12/17/19 00:00 Mechanical Ventilator 12/16/19 23:37 80 17 28 12/16/19 23:30 77 17 116/45 (68) 97 12/16/19 23:00 80 17 126/52 (76) 99 12/16/19 22:59 73 12/16/19 22:00 78 17 116/47 (70) 98 12/16/19 21:00 74 15 115/48 (70) 98 12/16/19 20:00 75 15 115/50 (71) 97 12/16/19 20:00 Mechanical Ventilator 12/16/19 20:00 84 12/16/19 20:00 28 12/16/19 19:37 81 18 28 12/16/19 19:14 78 12/16/19 19:00 76 17 115/49 (71) 97 12/16/19 18:00 78 16 120/48 (72) 96 12/16/19 17:00 75 15 122/48 (72) 97 12/16/19 16:29 78 12/16/19 16:00 28 12/16/19 16:00 Mechanical Ventilator 12/16/19 16:00 98.9 73 16 116/46 (69) 97 12/16/19 15:01 73 19 28 12/16/19 15:00 73 20 120/45 (70) 98 12/16/19 14:00 76 21 119/46 (70) 98 12/16/19 13:00 78 20 123/49 (73) 98 Intake and Output 12/16/19 12/17/19 19:00 07:00 Intake Total 1275 ml 800 ml Output Total 575 ml 505 ml Balance 700 ml 295 ml Intake Free Water 100 ml IV Total 575 ml 600 ml Tube Feeding 600 ml 100 ml Other 100 ml Output Urine Total 575 ml 505 ml Laboratory Tests 12/17/19 05:42: White Blood Count 5.9, Red Blood Count 3.34L, Hemoglobin 10.8L, Hematocrit 34.5L , Mean Corpuscular Volume 103H, Mean Corpuscular Hemoglobin 32.2H, Mean Corpuscular Hemoglobin Concent 31.2L, Red Cell Distribution Width 13.6, Platelet Count 168, Mean Platelet Volume 7.1, Neutrophils (%) (Auto) 62.3, Lymphocytes (%) (Auto) 22.3, Monocytes (%) (Auto) 9.8, Eosinophils (%) (Auto) 4.5H, Basophils (%) (Auto) 1.1, Sodium Level 146H, Potassium Level 4.2, Chloride Level 106, Carbon Dioxide Level 36H, Anion Gap 4L, Blood Urea Nitrogen 25H, Creatinine 0.9, Estimat Glomerular Filtration Rate > 60, Glucose Level 118H , Calcium Level 8.0L, Phosphorus Level 2.2L, Magnesium Level 1.9, Total Bilirubin 0.5, Aspartate Amino Transf (AST/SGOT) 18, Alanine Aminotransferase ( ALT/SGPT) 54, Alkaline Phosphatase 43L, Total Protein 6.3L, Albumin 3.1L, Globulin 3.2, Albumin/Globulin Ratio 1.0 12/17/19 07:28: Arterial Blood pH 7.421, Arterial Blood Partial Pressure CO2 53.2H, Arterial Blood Partial Pressure O2 71.3L, Arterial Blood HCO3 33.8H, Arterial Blood Oxygen Saturation 93.7L, Arterial Blood Base Excess 8.0H, Raphael Test Positive Height (Feet): 5 Height (Inches): 7.00 Weight (Pounds): 211 General Appearance: lethargic EENT: normal ENT inspection Neck: supple Cardiovascular: normal rate Respiratory/Chest: decreased breath sounds Abdomen: soft, hypoactive bowel sounds Extremities: non-tender Kirk Vidal MD Dec 17, 2019 12:05
--- NOTE | 2019-12-17 12:33 | Hematology/Onc Progress Note ---
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 ( combination of moderate aortic regurgitation and severe mitral regurgitation) --> diuresis as per cards --> lasix last time # Severe ascending aortic dilatation --> per Dr Keke campbell # Hypertension # Parkinson disease # Hyperlipidemia # Hypothyroidism # Dementia # Obesity # Schizophrenia --> [facility] # Dvt ppx lovenox sq/scd's Appreciate programmer analyst consultant care and alexei Rn Subjective Allergies: Coded Allergies: LITHIUM (Verified Allergy, Unknown, 02/07/19) All Systems: reviewed and negative except above Subjective 7/2 labs are reviewed, intubated, with og, somewhat responsive, alexei rn 7/3 labs noted, hgb 7.8, tfs ok to start per gi / icu, restraints, no acute events, hep panel negative, sedated 12/16 no bleeding, in the icu, on abx, in restarints, sleepy, vent Objective Objective Current Medications Medications (Trade) Dose Ordered Sig/Angie Route PRN Reason Start Time Stop Time Status Last Admin Dose Admin Acetaminophen (Tylenol) 650 mg Q6H PRN ORAL Mild Pain (Pain Scale 1-3) 12/12/19 12:30 01/11/20 12:29 Acetaminophen (Tylenol) 1,000 mg Q6H PRN ORAL MODERATE PAIN 12/12/19 12:30 01/11/20 12:29 Amantadine HCl (Symmetrel) 100 mg TWICE A DAY GT 12/15/19 18:00 01/11/20 08:59 12/16/19 17:10 Aspirin (Ecotrin) 325 mg DAILY ORAL 12/13/19 09:00 01/26/20 08:59 12/16/19 08:12 Atorvastatin Calcium (Lipitor) 10 mg BEDTIME GT 12/15/19 21:00 03/11/20 20:59 12/16/19 21:20 Calcium Carbonate (Os-Octavio) 1,250 mg THREE TIMES A DAY GT 12/15/19 18:00 03/11/20 09:59 12/16/19 17:10 Cefepime HCl 1 gm/ Dextrose 55 ml @ 110 mls/hr Q24H IVPB 12/12/19 16:00 12/19/19 15:59 12/16/19 15:24 Clonidine HCl (Catapres Tab) 0.1 mg Q6H PRN GT For high BP over 160 systolic 12/15/19 16:30 03/11/20 12:30 Dextrose (Dextrose 50%) 25 ml Q30M PRN IV Hypoglycemia 12/13/19 07:15 03/12/20 07:14 Dextrose (Dextrose 50%) 50 ml Q30M PRN IV Hypoglycemia 12/13/19 07:15 03/12/20 07:14 Divalproex Sodium (Depakote Sprinkles) 250 mg EVERY 12 HOURS NG 12/13/19 21:00 01/12/20 20:59 12/16/19 21:20 Docusate Sodium (Colace) 100 mg TWICE A DAY NG 12/15/19 18:00 01/14/20 17:59 12/16/19 17:10 Insulin Aspart (NovoLOG) EVERY 6 HOURS SUBQ 12/13/19 12:00 03/12/20 11:59 12/16/19 17:39 Levothyroxine Sodium (Synthroid) 75 mcg DAILY IV 12/13/19 09:00 01/11/20 09:29 12/17/19 08:26 Lorazepam (Ativan) 1 mg Q6H PRN GT For Anxiety 12/15/19 16:30 12/19/19 12:30 Nitroglycerin (Ntg) 0.4 mg Q5MIN X 3 DOSES PRN SL CHEST PAIN 12/12/19 12:00 01/10/20 21:44 Olanzapine (ZyPREXA) 5 mg BID GT 12/15/19 18:00 01/26/20 08:59 12/16/19 17:09 Pantoprazole (Protonix) 40 mg EVERY 12 HOURS IVP 12/14/19 09:00 01/13/20 08:59 12/17/19 08:26 Phosphorus (Phospha 250 Neutral) 250 mg THREE TIMES A DAY GT 12/15/19 09:00 01/14/20 08:59 12/16/19 17:09 Potassium Phosphate 20 mm/ Sodium Chloride 281.6667 ml @ 46.944 m... ONCE ONCE IV 12/17/19 08:00 12/17/19 13:59 12/17/19 08:24 Potassium Chloride (K-Dur) 40 meq TWICE A DAY NG 12/14/19 10:30 03/13/20 10:29 12/16/19 17:10 Sodium Chloride 1,000 ml @ 50 mls/hr Q20H IV 12/12/19 12:30 01/11/20 12:29 12/17/19 11:00 Last 24 Hour Vital Signs Date Time Temp Pulse Resp B/P (MAP) Pulse Ox O2 Delivery O2 Flow Rate FiO2 12/17/19 11:35 82 20 28 12/17/19 11:00 79 22 127/50 (75) 96 12/17/19 10:00 78 19 119/52 (74) 97 12/17/19 09:18 73 20 28 28 12/17/19 09:00 74 15 118/59 (78) 100 12/17/19 08:00 28 12/17/19 08:00 80 12/17/19 08:00 97.8 81 18 109/42 (64) 96 12/17/19 08:00 Mechanical Ventilator 12/17/19 07:14 77 16 28 12/17/19 07:00 74 15 116/42 (66) 97 12/17/19 06:30 78 15 12/17/19 06:00 73 15 111/41 (64) 99 12/17/19 05:00 73 15 114/45 (68) 99 12/17/19 04:00 28 12/17/19 04:00 98.6 73 15 109/41 (63) 98 12/17/19 04:00 78 12/17/19 04:00 Mechanical Ventilator 12/17/19 03:00 73 15 113/42 (65) 99 12/17/19 03:00 74 16 28 12/17/19 02:00 75 15 109/42 (64) 97 12/17/19 01:00 74 15 117/46 (69) 97 12/17/19 00:00 98.3 79 17 121/44 (69) 98 12/17/19 00:00 28 12/17/19 00:00 Mechanical Ventilator 12/16/19 23:37 80 17 28 12/16/19 23:30 77 17 116/45 (68) 97 12/16/19 23:00 80 17 126/52 (76) 99 12/16/19 22:59 73 12/16/19 22:00 78 17 116/47 (70) 98 12/16/19 21:00 74 15 115/48 (70) 98 12/16/19 20:00 75 15 115/50 (71) 97 12/16/19 20:00 Mechanical Ventilator 12/16/19 20:00 84 12/16/19 20:00 28 12/16/19 19:37 81 18 28 12/16/19 19:14 78 12/16/19 19:00 76 17 115/49 (71) 97 12/16/19 18:00 78 16 120/48 (72) 96 12/16/19 17:00 75 15 122/48 (72) 97 12/16/19 16:29 78 12/16/19 16:00 28 12/16/19 16:00 Mechanical Ventilator 12/16/19 16:00 98.9 73 16 116/46 (69) 97 12/16/19 15:01 73 19 28 12/16/19 15:00 73 20 120/45 (70) 98 12/16/19 14:00 76 21 119/46 (70) 98 12/16/19 13:00 78 20 123/49 (73) 98 12/16/19 12:00 28 12/16/19 12:00 Mechanical Ventilator 12/16/19 12:00 77 20 123/50 (74) 98 12/16/19 12:00 74 12/16/19 11:39 98 12/16/19 11:39 28 12/16/19 11:27 80 17 35 12/16/19 11:00 74 16 118/47 (70) 100 12/16/19 10:00 75 16 123/47 (72) 99 12/16/19 09:00 75 16 126/49 (74) 99 12/16/19 08:28 74 12/16/19 08:00 35 12/16/19 08:00 98.5 85 22 131/50 (77) 100 12/16/19 08:00 Mechanical Ventilator 12/16/19 07:05 76 15 35 12/16/19 07:00 77 15 119/46 (70) 100 12/16/19 06:30 78 15 12/16/19 06:00 75 15 114/44 (67) 99 12/16/19 05:00 74 15 110/42 (64) 100 12/16/19 04:30 73 15 108/75 (86) 100 12/16/19 04:00 76 12/16/19 04:00 98.8 75 15 117/45 (69) 100 12/16/19 04:00 Mechanical Ventilator 12/16/19 04:00 35 12/16/19 03:30 76 16 119/47 (71) 99 12/16/19 03:15 72 15 35 12/16/19 03:00 78 17 114/49 (70) 98 12/16/19 02:00 77 15 110/42 (64) 98 12/16/19 01:00 75 15 123/46 (71) 100 12/16/19 00:00 Mechanical Ventilator 12/16/19 00:00 75 12/16/19 00:00 98.8 74 15 120/46 (70) 99 12/16/19 00:00 35 12/15/19 23:59 74 15 35 12/15/19 23:30 75 15 125/47 (73) 99 12/15/19 23:00 76 16 122/46 (71) 99 12/15/19 22:00 73 15 119/50 (73) 99 12/15/19 21:00 75 16 114/62 (79) 98 12/15/19 20:30 77 17 116/45 (68) 99 12/15/19 20:00 35 12/15/19 20:00 98.4 78 16 123/48 (73) 99 12/15/19 20:00 Mechanical Ventilator 12/15/19 20:00 77 12/15/19 19:30 79 17 35 12/15/19 19:00 78 15 116/46 (69) 97 12/15/19 18:00 78 20 117/90 (99) 99 12/15/19 17:00 79 15 123/50 (74) 97 12/15/19 16:00 74 12/15/19 16:00 98.6 88 19 134/53 (80) 100 12/15/19 16:00 Mechanical Ventilator 12/15/19 15:20 75 15 35 12/15/19 15:00 75 15 118/47 (70) 97 12/15/19 14:00 80 15 123/48 (73) 97 12/15/19 13:50 35 12/15/19 13:00 85 18 128/53 (78) 99 Intake and Output 12/16/19 12/17/19 19:00 07:00 Intake Total 1275 ml 800 ml Output Total 575 ml 505 ml Balance 700 ml 295 ml Intake Free Water 100 ml IV Total 575 ml 600 ml Tube Feeding 600 ml 100 ml Other 100 ml Output Urine Total 575 ml 505 ml Labs Test 12/14/19 17:09 12/15/19 04:50 12/15/19 09:18 12/15/19 13:36 POC Whole Blood Glucose 108 MG/DL (74-106) White Blood Count 5.8 K/UL (4.8-10.8) Red Blood Count 3.49 M/UL (4.20-5.40) Hemoglobin 11.3 G/DL (12.0-16.0) Hematocrit 34.9 % (37.0-47.0) Mean Corpuscular Volume 100 FL (80-99) Mean Corpuscular Hemoglobin 32.4 PG (27.0-31.0) Mean Corpuscular Hemoglobin Concent 32.4 G/DL (32.0-36.0) Red Cell Distribution Width 12.9 % (11.6-14.8) Platelet Count 182 K/UL (150-450) Mean Platelet Volume 6.3 FL (6.5-10.1) Neutrophils (%) (Auto) 70.6 % (45.0-75.0) Lymphocytes (%) (Auto) 19.0 % (20.0-45.0) Monocytes (%) (Auto) 8.8 % (1.0-10.0) Eosinophils (%) (Auto) 1.1 % (0.0-3.0) Basophils (%) (Auto) 0.5 % (0.0-2.0) Sodium Level 139 MMOL/L (136-145) Potassium Level 2.9 MMOL/L (3.5-5.1) Chloride Level 97 MMOL/L (98-107) Carbon Dioxide Level 35 MMOL/L (21-32) Anion Gap 8 mmol/L (5-15) Blood Urea Nitrogen 23 mg/dL (7-18) Creatinine 1.4 MG/DL (0.55-1.30) Estimat Glomerular Filtration Rate 36.2 mL/min (>60) Glucose Level 145 MG/DL (74-106) Uric Acid 10.5 MG/DL (2.6-7.2) Calcium Level 7.4 MG/DL (8.5-10.1) Phosphorus Level 1.8 MG/DL (2.5-4.9) Magnesium Level 1.8 MG/DL (1.8-2.4) Iron Level 32 ug/dL (50-175) Total Iron Binding Capacity 327 ug/dL (250-450) Percent Iron Saturation 10 % (15-50) Unsaturated Iron Binding 295 ug/dL (112-346) Total Bilirubin 0.8 MG/DL (0.2-1.0) Aspartate Amino Transf (AST/SGOT) 36 U/L (15-37) Alanine Aminotransferase (ALT/SGPT) 93 U/L (12-78) Alkaline Phosphatase 51 U/L (46-116) Total Protein 6.2 G/DL (6.4-8.2) Albumin 3.2 G/DL (3.4-5.0) Globulin 3.0 g/dL Albumin/Globulin Ratio 1.1 (1.0-2.7) Vitamin B12 Level 889 PG/ML (193-986) Folate 18.1 NG/ML (8.6-58.9) Hepatitis A IgM Antibody Negative (Negative) Hepatitis B Surface Antigen Negative (Negative) Hepatitis B Core IgM Antibody Negative (Negative) Hepatitis C Antibody <0.1 s/co ratio Arterial Blood pH 7.466 (7.350-7.450) 7.398 (7.350-7.450) Arterial Blood Partial Pressure CO2 48.2 mmHg (35.0-45.0) 59.0 mmHg (35.0-45.0) Arterial Blood Partial Pressure O2 87.7 mmHg (75.0-100.0) 89.3 mmHg (75.0-100.0) Arterial Blood HCO3 34.0 mmol/L (22.0-26.0) 35.6 mmol/L (22.0-26.0) Arterial Blood Oxygen Saturation 96.4 % (95-100) 96.2 % (95-100) Arterial Blood Base Excess 9 (-2-2) 8.9 (-2-2) Raphael Test Positive Positive Test 12/16/19 00:14 12/16/19 01:20 12/16/19 04:08 12/16/19 09:52 POC Whole Blood Glucose 103 MG/DL (74-106) Vancomycin Level Trough 8.3 ug/mL (5.0-12.0) White Blood Count 5.4 K/UL (4.8-10.8) Red Blood Count 3.43 M/UL (4.20-5.40) Hemoglobin 11.0 G/DL (12.0-16.0) Hematocrit 35.4 % (37.0-47.0) Mean Corpuscular Volume 103 FL (80-99) Mean Corpuscular Hemoglobin 32.0 PG (27.0-31.0) Mean Corpuscular Hemoglobin Concent 31.0 G/DL (32.0-36.0) Red Cell Distribution Width 13.3 % (11.6-14.8) Platelet Count 169 K/UL (150-450) Mean Platelet Volume 6.0 FL (6.5-10.1) Neutrophils (%) (Auto) 65.8 % (45.0-75.0) Lymphocytes (%) (Auto) 22.6 % (20.0-45.0) Monocytes (%) (Auto) 8.7 % (1.0-10.0) Eosinophils (%) (Auto) 2.5 % (0.0-3.0) Basophils (%) (Auto) 0.4 % (0.0-2.0) Sodium Level 144 MMOL/L (136-145) Potassium Level 4.0 MMOL/L (3.5-5.1) Chloride Level 102 MMOL/L (98-107) Carbon Dioxide Level 36 MMOL/L (21-32) Anion Gap 7 mmol/L (5-15) Blood Urea Nitrogen 19 mg/dL (7-18) Creatinine 1.1 MG/DL (0.55-1.30) Estimat Glomerular Filtration Rate 47.8 mL/min (>60) Glucose Level 90 MG/DL (74-106) Calcium Level 7.5 MG/DL (8.5-10.1) Arterial Blood pH 7.428 (7.350-7.450) Arterial Blood Partial Pressure CO2 50.8 mmHg (35.0-45.0) Arterial Blood Partial Pressure O2 90.5 mmHg (75.0-100.0) Arterial Blood HCO3 32.8 mmol/L (22.0-26.0) Arterial Blood Oxygen Saturation 96.6 % (95-100) Arterial Blood Base Excess 7.3 (-2-2) Raphael Test Positive Test 12/17/19 05:42 12/17/19 07:28 White Blood Count 5.9 K/UL (4.8-10.8) Red Blood Count 3.34 M/UL (4.20-5.40) Hemoglobin 10.8 G/DL (12.0-16.0) Hematocrit 34.5 % (37.0-47.0) Mean Corpuscular Volume 103 FL (80-99) Mean Corpuscular Hemoglobin 32.2 PG (27.0-31.0) Mean Corpuscular Hemoglobin Concent 31.2 G/DL (32.0-36.0) Red Cell Distribution Width 13.6 % (11.6-14.8) Platelet Count 168 K/UL (150-450) Mean Platelet Volume 7.1 FL (6.5-10.1) Neutrophils (%) (Auto) 62.3 % (45.0-75.0) Lymphocytes (%) (Auto) 22.3 % (20.0-45.0) Monocytes (%) (Auto) 9.8 % (1.0-10.0) Eosinophils (%) (Auto) 4.5 % (0.0-3.0) Basophils (%) (Auto) 1.1 % (0.0-2.0) Sodium Level 146 MMOL/L (136-145) Potassium Level 4.2 MMOL/L (3.5-5.1) Chloride Level 106 MMOL/L (98-107) Carbon Dioxide Level 36 MMOL/L (21-32) Anion Gap 4 mmol/L (5-15) Blood Urea Nitrogen 25 mg/dL (7-18) Creatinine 0.9 MG/DL (0.55-1.30) Estimat Glomerular Filtration Rate > 60 mL/min (>60) Glucose Level 118 MG/DL (74-106) Calcium Level 8.0 MG/DL (8.5-10.1) Phosphorus Level 2.2 MG/DL (2.5-4.9) Magnesium Level 1.9 MG/DL (1.8-2.4) Total Bilirubin 0.5 MG/DL (0.2-1.0) Aspartate Amino Transf (AST/SGOT) 18 U/L (15-37) Alanine Aminotransferase (ALT/SGPT) 54 U/L (12-78) Alkaline Phosphatase 43 U/L (46-116) Total Protein 6.3 G/DL (6.4-8.2) Albumin 3.1 G/DL (3.4-5.0) Globulin 3.2 g/dL Albumin/Globulin Ratio 1.0 (1.0-2.7) Arterial Blood pH 7.421 (7.350-7.450) Arterial Blood Partial Pressure CO2 53.2 mmHg (35.0-45.0) Arterial Blood Partial Pressure O2 71.3 mmHg (75.0-100.0) Arterial Blood HCO3 33.8 mmol/L (22.0-26.0) Arterial Blood Oxygen Saturation 93.7 % (95-100) Arterial Blood Base Excess 8.0 (-2-2) Raphael Test Positive Height (Feet): 5 Height (Inches): 7.00 Weight (Pounds): 211 Objective Vitals: reviewed General: NAD HEENT: nc, at ++ogt Neck: supple ++intubated Chest: decreased breath sounds bilaterally Cardiovascular: RRR, no s3, s4 Abdomen: soft, nontender, nd Extremities: 1-2 + edema, scd's Neuro: nonverbal : restraints Frank Escobar MD Dec 17, 2019 12:32
--- NOTE | 2019-12-17 12:45 | NUR ---
NURSE NOTES: Patient was placed on T-piece with 35%FiO2 at 1140 AM by RT per Dr De order for weaning. At 1213, patient was found cyanotic and bradycardic with HR of 39, O2 saturation went down to 60s. RT was paged STAT. 1 dose of Atropine IVP given. RT present at bedside and placed patient back to vent with FiO2 100%. Patients vital signs at the moment are as follows: BP 139/75 HR 146 RR 25 SpO2 100% at this time. Patient remains awake, opens eyes spontaneously, and appears to be anxious and restless, biting on the ETT. PUPILS are reactive to light and are bilaterally brisk. Dr Myers was notified and made aware. TF remains on hold at this time. Will continue to monitor.
[2019-12-17] MEDS: LORazepam 0.5mg tab GT PRN (12:52)
--- NOTE | 2019-12-17 12:57 | NUR ---
RESPIRATORY NOTE:Pt. Received on AC 15 450 +5 28%. Pt placed on CPAP @ 0918 tolerating well. Pt. placed on T-PIECE trial 35% @ 1140. ABG Drawn @1210. At this time pt. began to go in to distress. Pt. became cyanotic and bradycardic. Began bagging pt at 100% Fio2, then placed back on the vent on previous settings @100% Fio2. DARREL butler.
--- NOTE | 2019-12-17 13:50 | Diagnostic Imaging Report ---
Indication: Dyspnea Technique: One view of the chest Comparison: 12/15/2019 Findings: Stable satisfactory position of endotracheal tube. Orogastric tube tip appears to project beyond the edge of the image. Some patchy opacities are seen in the right lower lung. There is some atelectasis at the left lung base. The heart is enlarged. Impression: Patchy right lower lung opacities, could represent early infiltrates. Stable left basilar atelectasis Stable tube positions as described.
--- NOTE | 2019-12-17 14:00 | NUR ---
NURSE NOTES: Patient remains awake and is able to follow simple commands. Remains orally intubated, patient's FiO2 50% at this time, will titrate as tolerated. Patient is saturating 95-97%. Repositioned and suctioned orally. Will continue to monitor patient.
--- NOTE | 2019-12-17 14:02 | NUR ---
ST NOTE/SWALLOW STATUS ORDER RECEIVED FOR BEDSIDE SWALLOW EVALUATION. PATIENT CURRENTLY IN ICU AND ORALLY INTUBATED, THEREFORE, UNABLE TO SAFELY PARTICIPATE IN A BEDSIDE SWALLOW EVALUATION AT THIS TIME. ST WILL FOLLOWUP 12/18/19. THANK YOU FOR THIS REFERRAL.
--- NOTE | 2019-12-17 14:36 | Diagnostic Imaging Report ---
Indication: Abnormal liver function tests and abnormal renal function tests Technique: Mcarthur-scale and duplex images of the upper abdomen were obtained. Doppler interrogation of the of hepatic and pancreatic vessels Comparison: none Findings: There are trace bilateral pleural effusions Gallbladder is unremarkable, without stones, wall thickening, nor pericholecystic fluid. Sonographic Mao's sign is negative. Common bile duct measures again mm in diameter. No intrahepatic biliary ductal dilatation. Liver demonstrates normal echogenicity, no focal abnormality. It is somewhat enlarged. There is trace ascites fluid present. Portal vein and hepatic veins are patent. Pancreas is unremarkable. Spleen is unremarkable. Left kidney measures 9.8 cm in length. Right kidney measures 11 point cm length. Both kidneys demonstrate normal echogenicity. There is no hydronephrosis. There is trace perinephric fluid on the left. There are bilateral small renal cysts. . Abdominal aorta is partially obscured by bowel gas, visualized portions are non-aneurysmal . Impression: Negative for gallstones. Mildly dilated common bile duct. Probably age-related, downstream obstruction not completely excludable. Correlate with liver function tests, consider MRCP if clinically indicated Trace ascites Borderline hepatomegaly Small bilateral pleural effusions Nonspecific trace left perinephric fluid Incidental finding bilateral renal cysts Note inability to visualize portions of the abdominal aorta
--- NOTE | 2019-12-17 15:22 | NUR ---
CASE MANAGEMENT: REVIEW SI: ACUTE RESPIRATORY FAILURE . INTUBATED . CHF . DM T 98.39 HR 150 RR 26 BP 104/59 SAT 90% MECH VENT FIO2 35 H/H 10.8/34.5 NA 146 ABG: PH 7.316 PCO2 74.0 PO2 62.2 HCO3 36.9 O2 SAT 89.0 IS: CEFEPIME IV Q12HR NOVOLOG SUBQ Q6HR PROTONIX IV Q12HR NS IVF @ 50ML/HR OG TUBE FEEDING ICU STATUS DCP: PATIENT IS FROM [facility]
--- NOTE | 2019-12-17 15:37 | Cardiac Electrophysiology PN ---
Assessment/Plan Assessment/Plan 1. Respiratory failure with BNP of more than 19,000. Echo showed normal ejection fraction. Off Lasix now 2. Bradycardia requiring atropine, Likely due to respiratory failure as was on T piece at the time. 3. Respiratory failure. Patient is intubated on the vent on steroids and antibiotic 4. History of Parkinson disease. 5. Hyperlipidemia. 6. Metabolic alkalosis. Better off Lasix DW RN Subjective Subjective Intubated on the vent off pressors. While on T piece, laney down to 40, received 0.4 Atropine and was put back on the vent again. Objective Last 24 Hour Vital Signs Date Time Temp Pulse Resp B/P (MAP) Pulse Ox O2 Delivery O2 Flow Rate FiO2 12/17/19 14:00 102 17 105/54 (71) 95 12/17/19 13:00 115 18 104/59 (74) 90 12/17/19 12:34 150 25 139/75 (96) 100 12/17/19 12:18 40 14 107/59 (75) 12/17/19 12:00 98.9 93 26 123/96 (105) 98 12/17/19 12:00 35 12/17/19 12:00 Mechanical Ventilator 12/17/19 12:00 108 12/17/19 11:35 82 20 28 12/17/19 11:00 79 22 127/50 (75) 96 12/17/19 10:00 78 19 119/52 (74) 97 12/17/19 09:18 73 20 28 28 12/17/19 09:18 99 12/17/19 09:00 74 15 118/59 (78) 100 12/17/19 08:00 28 12/17/19 08:00 80 12/17/19 08:00 97.8 81 18 109/42 (64) 96 12/17/19 08:00 Mechanical Ventilator 12/17/19 07:14 77 16 28 12/17/19 07:00 74 15 116/42 (66) 97 12/17/19 06:30 78 15 12/17/19 06:00 73 15 111/41 (64) 99 12/17/19 05:00 73 15 114/45 (68) 99 12/17/19 04:00 28 12/17/19 04:00 98.6 73 15 109/41 (63) 98 12/17/19 04:00 78 7/6/20 04:00 Mechanical Ventilator 12/17/19 03:00 73 15 113/42 (65) 99 12/17/19 03:00 74 16 28 12/17/19 02:00 75 15 109/42 (64) 97 12/17/19 01:00 74 15 117/46 (69) 97 12/17/19 00:00 98.3 79 17 121/44 (69) 98 12/17/19 00:00 28 12/17/19 00:00 Mechanical Ventilator 12/16/19 23:37 80 17 28 12/16/19 23:30 77 17 116/45 (68) 97 12/16/19 23:00 80 17 126/52 (76) 99 12/16/19 22:59 73 12/16/19 22:00 78 17 116/47 (70) 98 12/16/19 21:00 74 15 115/48 (70) 98 12/16/19 20:00 75 15 115/50 (71) 97 12/16/19 20:00 Mechanical Ventilator 12/16/19 20:00 84 12/16/19 20:00 28 12/16/19 19:37 81 18 28 12/16/19 19:14 78 12/16/19 19:00 76 17 115/49 (71) 97 12/16/19 18:00 78 16 120/48 (72) 96 12/16/19 17:00 75 15 122/48 (72) 97 12/16/19 16:29 78 12/16/19 16:00 28 12/16/19 16:00 Mechanical Ventilator 12/16/19 16:00 98.9 73 16 116/46 (69) 97 Intake and Output 12/16/19 12/17/19 19:00 07:00 Intake Total 1275 ml 800 ml Output Total 575 ml 505 ml Balance 700 ml 295 ml Intake Free Water 100 ml IV Total 575 ml 600 ml Tube Feeding 600 ml 100 ml Other 100 ml Output Urine Total 575 ml 505 ml Laboratory Tests Test 12/17/19 05:42 12/17/19 07:28 12/17/19 12:10 White Blood Count 5.9 K/UL (4.8-10.8) Red Blood Count 3.34 M/UL (4.20-5.40) L Hemoglobin 10.8 G/DL (12.0-16.0) L Hematocrit 34.5 % (37.0-47.0) L Mean Corpuscular Volume 103 FL (80-99) H Mean Corpuscular Hemoglobin 32.2 PG (27.0-31.0) H Mean Corpuscular Hemoglobin Concent 31.2 G/DL (32.0-36.0) L Red Cell Distribution Width 13.6 % (11.6-14.8) Platelet Count 168 K/UL (150-450) Mean Platelet Volume 7.1 FL (6.5-10.1) Neutrophils (%) (Auto) 62.3 % (45.0-75.0) Lymphocytes (%) (Auto) 22.3 % (20.0-45.0) Monocytes (%) (Auto) 9.8 % (1.0-10.0) Eosinophils (%) (Auto) 4.5 % (0.0-3.0) H Basophils (%) (Auto) 1.1 % (0.0-2.0) Sodium Level 146 MMOL/L (136-145) H Potassium Level 4.2 MMOL/L (3.5-5.1) Chloride Level 106 MMOL/L (98-107) Carbon Dioxide Level 36 MMOL/L (21-32) H Anion Gap 4 mmol/L (5-15) L Blood Urea Nitrogen 25 mg/dL (7-18) H Creatinine 0.9 MG/DL (0.55-1.30) Estimat Glomerular Filtration Rate > 60 mL/min (>60) Glucose Level 118 MG/DL (74-106) H Calcium Level 8.0 MG/DL (8.5-10.1) L Phosphorus Level 2.2 MG/DL (2.5-4.9) L Magnesium Level 1.9 MG/DL (1.8-2.4) Total Bilirubin 0.5 MG/DL (0.2-1.0) Aspartate Amino Transf (AST/SGOT) 18 U/L (15-37) Alanine Aminotransferase (ALT/SGPT) 54 U/L (12-78) Alkaline Phosphatase 43 U/L (46-116) L Total Protein 6.3 G/DL (6.4-8.2) L Albumin 3.1 G/DL (3.4-5.0) L Globulin 3.2 g/dL Albumin/Globulin Ratio 1.0 (1.0-2.7) Arterial Blood pH 7.421 (7.350-7.450) 7.316 (7.350-7.450) Arterial Blood Partial Pressure CO2 53.2 mmHg (35.0-45.0) H 74.0 mmHg (35.0-45.0) *H Arterial Blood Partial Pressure O2 71.3 mmHg (75.0-100.0) L 62.2 mmHg (75.0-100.0) L Arterial Blood HCO3 33.8 mmol/L (22.0-26.0) H 36.9 mmol/L (22.0-26.0) H Arterial Blood Oxygen Saturation 93.7 % (95-100) L 89.0 % (95-100) *L Arterial Blood Base Excess 8.0 (-2-2) H 8.5 (-2-2) H Raphael Test Positive Positive Objective HEAD AND NECK: Shows she is orally intubated with no JVD. LUNGS: Coarse rhonchi. CARDIOVASCULAR: Shows regular S1 and S2 and tachycardic. ABDOMEN: Soft. EXTREMITIES: No pitting edema. Cameron Davies MD Dec 17, 2019 15:37
[2019-12-17] MEDS: Cefepime HCl 1 GM in D5W 55 ML IVPB SCH (15:38)
--- NOTE | 2019-12-17 16:00 | NUR ---
NURSE NOTES: Patient provided with complete bed bath, no BM noted at this time. Oral care given and suctioning. Released restraints and reapplied; skin is intact, pulses are palpable. SCD's on bilateral lower extremities in place. Bed is locked, alarmed, and in lowest position, side rails up x3, and call light within reach. Will continue to monitor.
--- NOTE | 2019-12-17 18:00 | NUR ---
NURSE NOTES: Patient pulled up in bed; patient noted pulling on f/c despite restraints on. Safety precautions remains in place; bed locked, alarmed, and in lowest position, side rails up x3, and call light within reach. Will continue to monitor.
--- NOTE | 2019-12-17 19:00 | NUR ---
HAND-OFF: Report given to DARREL Sullivan. Endorsed plan of care.
--- NOTE | 2019-12-17 19:10 | NUR ---
NURSE NOTES: Received report from DARREL Bolanos. Pt is sleeping on the bed. Pt has ETT and orally intubated. Vent dependent and setting with AC: 15, T:450, P:5, FiO2 30% and SaO2 100% noted. Given suction and provided oral care. Pt has OGT and no residual noted. On running with Vital AF @ 50cc/hr. No BM noted so far and Dr. Chicas aware. Dressing is clean ad dry on wound area. On P-200 mattress for wound management. IV site intact and no sign of infiltration noted and running with N/S @ 50cc/hr. checked comfort and circulation on bilateral soft restraint. Placed fall precaution. Will continue to care plan.
--- NOTE | 2019-12-17 20:00 | NUR ---
NURSE NOTES: Pt is sleeping on the bed ad calm. Trying to release bilateral soft restraint and successful. D/c'd restraint. Will continue to monitor any change of condition.
--- NOTE | 2019-12-17 22:00 | NUR ---
NURSE NOTES: Pt is sleeping on the bed and no sign of acute distress noted. SaO2 99-100% with current Vent setting. Tolerated well tubed feeding. No sign of pain by FLACC scale. Provided suction and oral care. Changed position. Will continue to monitor any change of condition.
--- NOTE | 2019-12-17 22:40 | General Progress Note ---
Assessment/Plan Problem List: (1) Dyspnea ICD Codes: R06.00 - Dyspnea, unspecified SNOMED: 106997967 (2) Hypothyroidism ICD Codes: E03.9 - Hypothyroidism, unspecified SNOMED: 93142753 (3) Obese ICD Codes: E66.9 - Obesity, unspecified SNOMED: 668992742, 466799553 (4) Psychosis ICD Codes: F29 - Unspecified psychosis not due to a substance or known physiological condition SNOMED: 50113848 (5) Respiratory failure ICD Codes: J96.90 - Respiratory failure, unspecified, unspecified whether with hypoxia or hypercapnia SNOMED: 838931959 (6) Respiratory distress ICD Codes: R06.03 - Acute respiratory distress SNOMED: 516155016 (7) Dyspnea ICD Codes: R06.00 - Dyspnea, unspecified SNOMED: 623512353 (8) Pneumonia ICD Codes: J18.9 - Pneumonia, unspecified organism SNOMED: 161466646 (9) Acute and chronic respiratory failure ICD Codes: J96.20 - Acute and chronic respiratory failure, unspecified whether with hypoxia or hypercapnia SNOMED: 87053311 (10) Diabetes mellitus type 2 in nonobese ICD Codes: E11.9 - Type 2 diabetes mellitus without complications SNOMED: 444398632 (11) CHF (congestive heart failure) ICD Codes: I50.9 - Heart failure, unspecified SNOMED: 99818157 Qualifiers: Qualified Codes: I50.9 - Heart failure, unspecified (12) Hypoxia ICD Codes: R09.02 - Hypoxemia SNOMED: 224606766 (13) Elevated d-dimer ICD Codes: R79.89 - Other specified abnormal findings of blood chemistry SNOMED: 599963897 (14) Schizophrenia ICD Codes: F20.9 - Schizophrenia, unspecified SNOMED: 50093884 (15) Parkinson disease ICD Codes: G20 - Parkinson's disease SNOMED: 65125613 Status: progressing Assessment/Plan: mrsa nares chf needs fluid removal afebrile alert pna covid negative pleural effusion Subjective ROS Limited/Unobtainable: Yes Allergies: Coded Allergies: LITHIUM (Verified Allergy, Unknown, 02/07/19) Objective Last 24 Hour Vital Signs Date Time Temp Pulse Resp B/P (MAP) Pulse Ox O2 Delivery O2 Flow Rate FiO2 12/17/19 22:00 76 16 104/40 (61) 97 12/17/19 21:00 77 16 102/40 (60) 97 12/17/19 20:00 98.4 78 21 107/45 (65) 97 12/17/19 20:00 30 12/17/19 20:00 77 12/17/19 20:00 Mechanical Ventilator 12/17/19 19:30 77 16 30 12/17/19 19:00 76 15 104/41 (62) 97 12/17/19 18:00 78 18 105/46 (65) 96 12/17/19 17:00 79 18 101/36 (57) 96 12/17/19 17:00 79 15 101/36 (57) 95 12/17/19 16:00 Mechanical Ventilator 12/17/19 16:00 83 17 100/45 (63) 96 12/17/19 16:00 83 12/17/19 16:00 30 12/17/19 15:42 88 19 30 12/17/19 15:00 94 19 104/56 (72) 95 12/17/19 14:00 102 17 105/54 (71) 95 12/17/19 13:00 115 18 104/59 (74) 90 12/17/19 12:34 150 25 139/75 (96) 100 12/17/19 12:18 40 14 107/59 (75) 12/17/19 12:15 72 15 100 12/17/19 12:00 98.9 93 26 123/96 (105) 98 12/17/19 12:00 35 12/17/19 12:00 Mechanical Ventilator 12/17/19 12:00 108 12/17/19 11:35 82 20 28 12/17/19 11:00 79 22 127/50 (75) 96 12/17/19 10:00 78 19 119/52 (74) 97 12/17/19 09:18 73 20 28 28 12/17/19 09:18 99 12/17/19 09:00 74 15 118/59 (78) 100 12/17/19 08:00 28 12/17/19 08:00 80 12/17/19 08:00 97.8 81 18 109/42 (64) 96 12/17/19 08:00 Mechanical Ventilator 12/17/19 07:14 77 16 28 12/17/19 07:00 74 15 116/42 (66) 97 12/17/19 06:30 78 15 12/17/19 06:00 73 15 111/41 (64) 99 12/17/19 05:00 73 15 114/45 (68) 99 12/17/19 04:00 28 12/17/19 04:00 98.6 73 15 109/41 (63) 98 12/17/19 04:00 78 12/17/19 04:00 Mechanical Ventilator 12/17/19 03:00 73 15 113/42 (65) 99 12/17/19 03:00 74 16 28 12/17/19 02:00 75 15 109/42 (64) 97 12/17/19 01:00 74 15 117/46 (69) 97 12/17/19 00:00 98.3 79 17 121/44 (69) 98 12/17/19 00:00 28 12/17/19 00:00 Mechanical Ventilator 12/16/19 23:37 80 17 28 12/16/19 23:30 77 17 116/45 (68) 97 12/16/19 23:00 80 17 126/52 (76) 99 12/16/19 22:59 73 Intake and Output 12/16/19 12/17/19 19:00 07:00 Intake Total 1275 ml 800 ml Output Total 575 ml 505 ml Balance 700 ml 295 ml Intake Free Water 100 ml IV Total 575 ml 600 ml Tube Feeding 600 ml 100 ml Other 100 ml Output Urine Total 575 ml 505 ml Laboratory Tests 12/17/19 05:42: White Blood Count 5.9, Red Blood Count 3.34L, Hemoglobin 10.8L, Hematocrit 34.5L , Mean Corpuscular Volume 103H, Mean Corpuscular Hemoglobin 32.2H, Mean Corpuscular Hemoglobin Concent 31.2L, Red Cell Distribution Width 13.6, Platelet Count 168, Mean Platelet Volume 7.1, Neutrophils (%) (Auto) 62.3, Lymphocytes (%) (Auto) 22.3, Monocytes (%) (Auto) 9.8, Eosinophils (%) (Auto) 4.5H, Basophils (%) (Auto) 1.1, Sodium Level 146H, Potassium Level 4.2, Chloride Level 106, Carbon Dioxide Level 36H, Anion Gap 4L, Blood Urea Nitrogen 25H, Creatinine 0.9, Estimat Glomerular Filtration Rate > 60, Glucose Level 118H , Calcium Level 8.0L, Phosphorus Level 2.2L, Magnesium Level 1.9, Total Bilirubin 0.5, Aspartate Amino Transf (AST/SGOT) 18, Alanine Aminotransferase ( ALT/SGPT) 54, Alkaline Phosphatase 43L, Total Protein 6.3L, Albumin 3.1L, Globulin 3.2, Albumin/Globulin Ratio 1.0 12/17/19 07:28: Arterial Blood pH 7.421, Arterial Blood Partial Pressure CO2 53.2H, Arterial Blood Partial Pressure O2 71.3L, Arterial Blood HCO3 33.8H, Arterial Blood Oxygen Saturation 93.7L, Arterial Blood Base Excess 8.0H, Raphael Test Positive 12/17/19 12:10: Arterial Blood pH 7.316L, Arterial Blood Partial Pressure CO2 74.0*H, Arterial Blood Partial Pressure O2 62.2L, Arterial Blood HCO3 36.9H, Arterial Blood Oxygen Saturation 89.0*L, Arterial Blood Base Excess 8.5H, Raphael Test Positive Height (Feet): 5 Height (Inches): 7.00 Weight (Pounds): 211 Dani Perera MD Dec 17, 2019 22:40
[2019-12-18] VITALS (28 sets, daily range): BP systolic 93–169; BP diastolic 39–78
--- NOTE | 2019-12-18 | NUR ---
NURSE NOTES: Pt is awake, confused, agitated and non-compliance. Pt trying to remove ETT and Ace. Given verbal cueing but didn't understand. Applied bilateral soft restraint and checked circulation and comfort. Suction and oral care was done. changed position. Will continue to monitor any change of condition.
--- NOTE | 2019-12-18 02:00 | NUR ---
NURSE NOTES: Suction was done. Turn and reposition. Will continue to care plan.
--- NOTE | 2019-12-18 04:00 | NUR ---
NURSE NOTES: Morning care was done. Cleaned Pt and applied lotion and cream. Suction was done. Changed position. Collected blood sample. Continue to monitor change of condition.
[2019-12-18 05:15] LABS: BASOPHILS % (AUTO) 1.1 % (0.0-2.0); EOSINOPHILS % (AUTO) 3.8 % (0.0-3.0); HEMATOCRIT 33.2 % (37.0-47.0); HEMOGLOBIN 10.2 G/DL (12.0-16.0); LYMPHOCYTES % (AUTO) 19.6 % (20.0-45.0); MEAN CORPUSCULAR VOLUME 105 FL (80-99); MONOCYTES % (AUTO) 10.3 % (1.0-10.0); NEUTROPHILS % (AUTO) 65.2 % (45.0-75.0); PLATELET COUNT 157 K/UL (150-450); RED BLOOD COUNT 3.17 M/UL (4.20-5.40); RED CELL DISTRIBUTION WIDTH 13.5 % (11.6-14.8); WHITE BLOOD COUNT 6.4 K/UL (4.8-10.8)
[2019-12-18 05:39] LABS: ANION GAP 7 mmol/L (5-15); BLOOD UREA NITROGEN 24 mg/dL (7-18); CARBON DIOXIDE 31 MMOL/L (21-32); CHLORIDE 110 MMOL/L (98-107); CREATININE 0.9 MG/DL (0.55-1.30); POTASSIUM 4.3 MMOL/L (3.5-5.1); SODIUM 148 MMOL/L (136-145)
[2019-12-18] MEDS: NovoLOG Insulin Flexpen SUBQ SCH ×5 (06:00→23:38)
--- NOTE | 2019-12-18 06:00 | NUR ---
NURSE NOTES: Pt is sleeping on the bed and no sign of acute distress noted. No BM noted at this time. Provided suction and oral care. Changed position. Tolerated well with current tube feeding. Will continue to monitor any change of condition.
--- NOTE | 2019-12-18 06:33 | General Progress Note ---
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 - Other specified diabetes mellitus without complications SNOMED: 876219451 (2) Parkinson disease ICD Codes: G20 - Parkinson's disease SNOMED: 77366727 (3) Schizophrenia ICD Codes: F20.9 - Schizophrenia, unspecified SNOMED: 20909847 (4) Hypertension ICD Codes: I10 - Essential (primary) hypertension SNOMED: 31033118 (5) Respiratory failure ICD Codes: J96.90 - Respiratory failure, unspecified, unspecified whether with hypoxia or hypercapnia SNOMED: 577347683 (6) Hypothyroidism ICD Codes: E03.9 - Hypothyroidism, unspecified SNOMED: 79690656 Status: progressing Assessment/Plan: continue Levothyroxine 75 mcg IV daily continue Novolog sliding scale every 6 hours hypoglycemia protocol in order Subjective Allergies: Coded Allergies: LITHIUM (Verified Allergy, Unknown, 02/07/19) Subjective events noted intubated in icu glucose values are stable Item Value Date Time Bedside Blood Glucose 101 mg/dl 12/18/19 0600 Bedside Blood Glucose 97 mg/dl 12/18/19 0000 Bedside Blood Glucose 98 mg/dl 12/17/19 1800 Bedside Blood Glucose 117 mg/dl 12/17/19 1214 Bedside Blood Glucose 123 mg/dl H 12/17/19 0529 Bedside Blood Glucose 121 mg/dl H 12/17/19 0000 Objective Last 24 Hour Vital Signs Date Time Temp Pulse Resp B/P (MAP) Pulse Ox O2 Delivery O2 Flow Rate FiO2 12/18/19 06:00 76 14 103/54 (70) 97 12/18/19 05:00 74 15 98/50 (66) 98 12/18/19 04:00 30 12/18/19 04:00 Mechanical Ventilator 12/18/19 04:00 98.8 73 15 101/40 (60) 98 12/18/19 04:00 77 12/18/19 03:30 76 22 30 12/18/19 03:00 81 17 122/51 (74) 100 12/18/19 02:00 76 16 97/65 (76) 98 12/18/19 01:00 75 15 103/43 (63) 97 12/18/19 00:00 30 12/18/19 00:00 97.9 76 17 104/44 (64) 99 12/18/19 00:00 Mechanical Ventilator 12/18/19 00:00 76 12/17/19 23:19 80 21 30 12/17/19 23:00 78 19 111/46 (67) 99 12/17/19 22:00 76 16 104/40 (61) 97 12/17/19 21:00 77 16 102/40 (60) 97 12/17/19 20:00 98.4 78 21 107/45 (65) 97 12/17/19 20:00 30 12/17/19 20:00 77 12/17/19 20:00 Mechanical Ventilator 12/17/19 19:30 77 16 30 12/17/19 19:00 76 15 104/41 (62) 97 12/17/19 18:00 78 18 105/46 (65) 96 12/17/19 17:00 79 18 101/36 (57) 96 12/17/19 17:00 79 15 101/36 (57) 95 12/17/19 16:00 Mechanical Ventilator 12/17/19 16:00 83 17 100/45 (63) 96 12/17/19 16:00 83 12/17/19 16:00 30 12/17/19 15:42 88 19 30 12/17/19 15:00 94 19 104/56 (72) 95 12/17/19 14:00 102 17 105/54 (71) 95 12/17/19 13:00 115 18 104/59 (74) 90 12/17/19 12:34 150 25 139/75 (96) 100 12/17/19 12:18 40 14 107/59 (75) 12/17/19 12:15 72 15 100 12/17/19 12:00 98.9 93 26 123/96 (105) 98 12/17/19 12:00 35 12/17/19 12:00 Mechanical Ventilator 12/17/19 12:00 108 12/17/19 11:35 82 20 28 12/17/19 11:00 79 22 127/50 (75) 96 12/17/19 10:00 78 19 119/52 (74) 97 12/17/19 09:18 73 20 28 28 12/17/19 09:18 99 12/17/19 09:00 74 15 118/59 (78) 100 12/17/19 08:00 28 12/17/19 08:00 80 12/17/19 08:00 97.8 81 18 109/42 (64) 96 12/17/19 08:00 Mechanical Ventilator 12/17/19 07:14 77 16 28 12/17/19 07:00 74 15 116/42 (66) 97 Intake and Output 12/17/19 12/18/19 19:00 07:00 Intake Total 1167.8864 ml 1100 ml Output Total 620 ml 510 ml Balance 547.8864 ml 590 ml IV Total 867.8864 ml 450 ml Tube Feeding 250 ml 600 ml Other 50 ml 50 ml Output Urine Total 620 ml 510 ml Laboratory Tests 12/17/19 07:28: Arterial Blood pH 7.421, Arterial Blood Partial Pressure CO2 53.2H, Arterial Blood Partial Pressure O2 71.3L, Arterial Blood HCO3 33.8H, Arterial Blood Oxygen Saturation 93.7L, Arterial Blood Base Excess 8.0H, Raphael Test Positive 12/17/19 12:10: Arterial Blood pH 7.316L, Arterial Blood Partial Pressure CO2 74.0*H, Arterial Blood Partial Pressure O2 62.2L, Arterial Blood HCO3 36.9H, Arterial Blood Oxygen Saturation 89.0*L, Arterial Blood Base Excess 8.5H, Raphael Test Positive 12/18/19 04:00: White Blood Count 6.4, Red Blood Count 3.17L, Hemoglobin 10.2L, Hematocrit 33.2L , Mean Corpuscular Volume 105H, Mean Corpuscular Hemoglobin 32.1H, Mean Corpuscular Hemoglobin Concent 30.7L, Red Cell Distribution Width 13.5, Platelet Count 157, Mean Platelet Volume 6.8, Neutrophils (%) (Auto) 65.2, Lymphocytes (%) (Auto) 19.6L, Monocytes (%) (Auto) 10.3H, Eosinophils (%) (Auto ) 3.8H, Basophils (%) (Auto) 1.1, Sodium Level 148H, Potassium Level 4.3, Chloride Level 110H, Carbon Dioxide Level 31, Anion Gap 7, Blood Urea Nitrogen 24H, Creatinine 0.9, Estimat Glomerular Filtration Rate > 60, Glucose Level 89, Calcium Level 8.0L Height (Feet): 5 Height (Inches): 7.00 Weight (Pounds): 210 Objective Current Medications Medications (Trade) Dose Ordered Sig/Angie Route PRN Reason Start Time Stop Time Status Last Admin Dose Admin Acetaminophen (Tylenol) 650 mg Q6H PRN ORAL Mild Pain (Pain Scale 1-3) 12/12/19 12:30 01/11/20 12:29 Acetaminophen (Tylenol) 1,000 mg Q6H PRN ORAL MODERATE PAIN 12/12/19 12:30 01/11/20 12:29 Amantadine HCl (Symmetrel) 100 mg TWICE A DAY GT 12/15/19 18:00 01/11/20 08:59 12/17/19 17:15 Aspirin (Ecotrin) 325 mg DAILY ORAL 12/13/19 09:00 01/26/20 08:59 12/16/19 08:12 Atorvastatin Calcium (Lipitor) 10 mg BEDTIME GT 12/15/19 21:00 03/11/20 20:59 12/17/19 20:43 Calcium Carbonate (Os-Octavio) 1,250 mg THREE TIMES A DAY GT 12/15/19 18:00 03/11/20 09:59 12/17/19 17:14 Cefepime HCl 1 gm/ Dextrose 55 ml @ 110 mls/hr Q24H IVPB 12/12/19 16:00 12/19/19 15:59 12/17/19 15:38 Clonidine HCl (Catapres Tab) 0.1 mg Q6H PRN GT For high BP over 160 systolic 12/15/19 16:30 03/11/20 12:30 Dextrose (Dextrose 50%) 25 ml Q30M PRN IV Hypoglycemia 12/13/19 07:15 03/12/20 07:14 Dextrose (Dextrose 50%) 50 ml Q30M PRN IV Hypoglycemia 12/13/19 07:15 03/12/20 07:14 Divalproex Sodium (Depakote Sprinkles) 250 mg EVERY 12 HOURS NG 12/13/19 21:00 01/12/20 20:59 12/17/19 20:44 Docusate Sodium (Colace) 100 mg TWICE A DAY NG 12/15/19 18:00 01/14/20 17:59 12/17/19 17:14 Insulin Aspart (NovoLOG) EVERY 6 HOURS SUBQ 12/13/19 12:00 03/12/20 11:59 12/16/19 17:39 Levothyroxine Sodium (Synthroid) 75 mcg DAILY IV 12/13/19 09:00 01/11/20 09:29 12/17/19 08:26 Lorazepam (Ativan) 1 mg Q6H PRN GT For Anxiety 12/15/19 16:30 12/19/19 12:30 12/17/19 12:52 Nitroglycerin (Ntg) 0.4 mg Q5MIN X 3 DOSES PRN SL CHEST PAIN 12/12/19 12:00 01/10/20 21:44 Olanzapine (ZyPREXA) 5 mg BID GT 12/15/19 18:00 01/26/20 08:59 12/17/19 17:15 Pantoprazole (Protonix) 40 mg EVERY 12 HOURS IVP 12/14/19 09:00 01/13/20 08:59 12/17/19 20:43 Phosphorus (Phospha 250 Neutral) 250 mg THREE TIMES A DAY GT 12/15/19 09:00 01/14/20 08:59 12/17/19 17:15 Potassium Chloride (K-Dur) 40 meq TWICE A DAY NG 12/14/19 10:30 03/13/20 10:29 12/17/19 17:14 Sodium Chloride 1,000 ml @ 50 mls/hr Q20H IV 12/12/19 12:30 01/11/20 12:29 12/17/19 11:00 Jabari Adams MD Dec 18, 2019 06:33
--- NOTE | 2019-12-18 07:15 | NUR ---
NURSE NOTES: Pt received from DARREL Sullivan. Pt is awake in bed, AAO x 1 to person, able to follow simple commands, PERRLA+. Pt is SR with 1st degree AVB to diagnostic cardiac sonographer. bilateral radial and dorsalis pedis pulses 2+. Left and right hands noted with 1+ pitting edema. Pt is mechanically ventilated with 7.5 ETT noted 24 cm at lip line with the following settings: AC 15 TV 450 FiO2 35% Peep 5. SpO2 noted 99-100%. All lung lobes noted diminished upon auscultation. Abd is round, soft, and non-tender with hypoactive bowel sounds to all quadrants. OGT noted running Vital AF 1.2 at 50 cc/hr without gastric residuals at this time. F/C noted draining yellow urine. Skin alterations noted. Pt has a LFA 22 g IV running NS at 50 cc/hr. Pt is on INSURANCE DEFENSE [employer]NEY restraints, radial pulses palpable, skin to both wrists intact without redness or swelling. Bed in lowest position with alarm on, side rails up x 3, call light within reach. Will continue to monitor.
--- NOTE | 2019-12-18 07:15 | NUR ---
HAND-OFF: Report given to DARREL Terry. Pt is sleeping on the bed and no sign of acute distress noted.
--- NOTE | 2019-12-18 07:30 | NUR ---
NURSE NOTES: received pt from during change of shift. pt bit ETT tube and was able to self Extubate. Doctor Louis notified and ordered BIPAP for Pt. Addendum: 12/19/19 at 0534 by SHAUN SERVIN RN WRONG TIME. occurrence happened 12/18/19 - 1929
[2019-12-18] MEDS: Docusate 100mg/10ml Liq NG SCH ×2 (08:38→17:43)
[2019-12-18] MEDS: Aspirin EC 325mg tab ORAL SCH (08:38)
[2019-12-18] MEDS: Os-Cal (Oyster Shell) 500mg tab GT SCH ×3 (08:38→17:44)
[2019-12-18] MEDS: Depakote 125mg Sprinkles NG SCH ×2 (08:38→21:00)
[2019-12-18] MEDS: Pantoprazole Inj IVP SCH ×2 (08:38→21:43)
[2019-12-18] MEDS: Amantadine 100mg cap GT SCH ×2 (08:39→17:44)
[2019-12-18] MEDS: Phospha 250 Neutral tab GT SCH ×3 (08:39→17:43)
--- NOTE | 2019-12-18 10:00 | NUR ---
NURSE NOTES: Pt repositioned, no acute distress noted. Will continue to monitor.
--- NOTE | 2019-12-18 10:38 | Pulmonology Progress Note ---
Subjective ROS Limited/Unobtainable: Yes Interval Events: Remains intubated; weaning well Constitutional: Denies: fever HEENT: Repors: no symptoms Respiratory: Reports: no symptoms Cardiovascular: Reports: no symptoms Gastrointestinal/Abdominal: Reports: no symptoms Genitourinary: Reports: no symptoms Allergies: Coded Allergies: LITHIUM (Verified Allergy, Unknown, 02/07/19) All Systems: reviewed and negative except above Objective Last 24 Hour Vital Signs Date Time Temp Pulse Resp B/P (MAP) Pulse Ox O2 Delivery O2 Flow Rate FiO2 12/18/19 10:00 76 16 110/43 (65) 97 12/18/19 09:00 74 15 110/45 (66) 97 12/18/19 08:00 79 12/18/19 08:00 30 12/18/19 08:00 Mechanical Ventilator 12/18/19 08:00 99.1 76 15 110/42 (64) 96 12/18/19 07:20 96 12/18/19 07:19 86 18 30 12/18/19 07:00 75 15 103/43 (63) 97 12/18/19 06:30 78 15 12/18/19 06:00 76 14 103/54 (70) 97 12/18/19 05:00 74 15 98/50 (66) 98 12/18/19 04:00 30 12/18/19 04:00 Mechanical Ventilator 12/18/19 04:00 98.8 73 15 101/40 (60) 98 12/18/19 04:00 77 12/18/19 03:30 76 22 30 12/18/19 03:00 81 17 122/51 (74) 100 12/18/19 02:00 76 16 97/65 (76) 98 12/18/19 01:00 75 15 103/43 (63) 97 12/18/19 00:00 30 12/18/19 00:00 97.9 76 17 104/44 (64) 99 12/18/19 00:00 Mechanical Ventilator 12/18/19 00:00 76 12/17/19 23:19 80 21 30 12/17/19 23:00 78 19 111/46 (67) 99 12/17/19 22:00 76 16 104/40 (61) 97 12/17/19 21:00 77 16 102/40 (60) 97 12/17/19 20:00 98.4 78 21 107/45 (65) 97 12/17/19 20:00 30 12/17/19 20:00 77 12/17/19 20:00 Mechanical Ventilator 12/17/19 19:30 77 16 30 12/17/19 19:00 76 15 104/41 (62) 97 12/17/19 18:00 78 18 105/46 (65) 96 12/17/19 17:00 79 18 101/36 (57) 96 12/17/19 17:00 79 15 101/36 (57) 95 12/17/19 16:00 Mechanical Ventilator 12/17/19 16:00 83 17 100/45 (63) 96 12/17/19 16:00 83 12/17/19 16:00 30 12/17/19 15:42 88 19 30 12/17/19 15:00 94 19 104/56 (72) 95 12/17/19 14:00 102 17 105/54 (71) 95 12/17/19 13:00 115 18 104/59 (74) 90 12/17/19 12:34 150 25 139/75 (96) 100 12/17/19 12:18 40 14 107/59 (75) 12/17/19 12:15 72 15 100 12/17/19 12:00 98.9 93 26 123/96 (105) 98 12/17/19 12:00 35 12/17/19 12:00 Mechanical Ventilator 12/17/19 12:00 108 12/17/19 11:35 82 20 28 12/17/19 11:00 79 22 127/50 (75) 96 Intake and Output 12/17/19 12/18/19 19:00 07:00 Intake Total 1167.8864 ml 1200 ml Output Total 620 ml 550 ml Balance 547.8864 ml 650 ml IV Total 867.8864 ml 500 ml Tube Feeding 250 ml 650 ml Other 50 ml 50 ml Output Urine Total 620 ml 550 ml General Appearance: no acute distress Respiratory: chest wall non-tender, lungs clear Cardiovascular: normal peripheral pulses, normal rate Abdomen: normal bowel sounds Laboratory Tests 12/17/19 12:10: Arterial Blood pH 7.316L, Arterial Blood Partial Pressure CO2 74.0*H, Arterial Blood Partial Pressure O2 62.2L, Arterial Blood HCO3 36.9H, Arterial Blood Oxygen Saturation 89.0*L, Arterial Blood Base Excess 8.5H, Raphael Test Positive 12/18/19 04:00: White Blood Count 6.4, Red Blood Count 3.17L, Hemoglobin 10.2L, Hematocrit 33.2L , Mean Corpuscular Volume 105H, Mean Corpuscular Hemoglobin 32.1H, Mean Corpuscular Hemoglobin Concent 30.7L, Red Cell Distribution Width 13.5, Platelet Count 157, Mean Platelet Volume 6.8, Neutrophils (%) (Auto) 65.2, Lymphocytes (%) (Auto) 19.6L, Monocytes (%) (Auto) 10.3H, Eosinophils (%) (Auto ) 3.8H, Basophils (%) (Auto) 1.1, Sodium Level 148H, Potassium Level 4.3, Chloride Level 110H, Carbon Dioxide Level 31, Anion Gap 7, Blood Urea Nitrogen 24H, Creatinine 0.9, Estimat Glomerular Filtration Rate > 60, Glucose Level 89, Calcium Level 8.0L Current Medications Medications (Trade) Dose Ordered Sig/Angie Route PRN Reason Start Time Stop Time Status Last Admin Dose Admin Acetaminophen (Tylenol) 650 mg Q6H PRN ORAL Mild Pain (Pain Scale 1-3) 12/12/19 12:30 01/11/20 12:29 Acetaminophen (Tylenol) 1,000 mg Q6H PRN ORAL MODERATE PAIN 12/12/19 12:30 01/11/20 12:29 Amantadine HCl (Symmetrel) 100 mg TWICE A DAY GT 12/15/19 18:00 01/11/20 08:59 12/18/19 08:39 Aspirin (Ecotrin) 325 mg DAILY ORAL 12/13/19 09:00 01/26/20 08:59 12/18/19 08:38 Atorvastatin Calcium (Lipitor) 10 mg BEDTIME GT 12/15/19 21:00 03/11/20 20:59 12/17/19 20:43 Calcium Carbonate (Os-Octavio) 1,250 mg THREE TIMES A DAY GT 12/15/19 18:00 03/11/20 09:59 12/18/19 08:38 Cefepime HCl 1 gm/ Dextrose 55 ml @ 110 mls/hr Q24H IVPB 12/12/19 16:00 12/25/19 15:59 12/17/19 15:38 Clonidine HCl (Catapres Tab) 0.1 mg Q6H PRN GT For high BP over 160 systolic 12/15/19 16:30 03/11/20 12:30 Dextrose (Dextrose 50%) 25 ml Q30M PRN IV Hypoglycemia 12/13/19 07:15 03/12/20 07:14 Dextrose (Dextrose 50%) 50 ml Q30M PRN IV Hypoglycemia 12/13/19 07:15 03/12/20 07:14 Divalproex Sodium (Depakote Sprinkles) 250 mg EVERY 12 HOURS NG 12/13/19 21:00 01/12/20 20:59 12/18/19 08:38 Docusate Sodium (Colace) 100 mg TWICE A DAY NG 12/15/19 18:00 01/14/20 17:59 12/18/19 08:38 Insulin Aspart (NovoLOG) EVERY 6 HOURS SUBQ 12/13/19 12:00 03/12/20 11:59 12/16/19 17:39 Levothyroxine Sodium (Synthroid) 75 mcg DAILY IV 12/13/19 09:00 01/11/20 09:29 12/18/19 08:38 Lorazepam (Ativan) 1 mg Q6H PRN GT For Anxiety 12/15/19 16:30 12/19/19 12:30 12/17/19 12:52 Nitroglycerin (Ntg) 0.4 mg Q5MIN X 3 DOSES PRN SL CHEST PAIN 12/12/19 12:00 01/10/20 21:44 Olanzapine (ZyPREXA) 5 mg BID GT 12/15/19 18:00 01/26/20 08:59 12/18/19 08:39 Pantoprazole (Protonix) 40 mg EVERY 12 HOURS IVP 12/14/19 09:00 01/13/20 08:59 12/18/19 08:38 Phosphorus (Phospha 250 Neutral) 250 mg THREE TIMES A DAY GT 12/15/19 09:00 01/14/20 08:59 12/18/19 08:39 Potassium Chloride (K-Dur) 40 meq TWICE A DAY NG 12/14/19 10:30 03/13/20 10:29 12/18/19 08:40 Sodium Chloride 1,000 ml @ 50 mls/hr Q20H IV 12/12/19 12:30 01/11/20 12:29 12/18/19 07:00 Assessment/Plan Assessment/Plan IMPRESSION: 1. Respiratory failure. 2. Has healthcare-associated pneumonia; is negative for COVID-19. 3. Psych disorder. 4. Obesity. 5. Hypertension. DISCUSSION: Continue broad spectrum antibiotics. On propofol. I will manage respirator, currently on AC mode 50% FiO2 and PEEP of 5. Has negative COVID-19 swab. I will follow carefully. Continue weaning Off Lasix given metabolic alkalosis Will order Haldol to assist in weaning Emerita Fan Omar Syed MD Dec 18, 2019 10:37
--- NOTE | 2019-12-18 11:27 | Hematology/Onc Progress Note ---
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 ( combination of moderate aortic regurgitation and severe mitral regurgitation) --> diuresis as per cards --> lasix last time # Severe ascending aortic dilatation --> per Dr Keke campbell # Hypertension # Parkinson disease # Hyperlipidemia # Hypothyroidism # Dementia # Obesity # Schizophrenia --> as per [facility] --> restraints # Dvt ppx lovenox sq/scd's Appreciate nursing consultant care and alexei Rn Subjective Allergies: Coded Allergies: LITHIUM (Verified Allergy, Unknown, 02/07/19) All Systems: reviewed and negative except above Subjective / labs are reviewed, intubated, with og, somewhat responsive, alexei rn 7/3 labs noted, hgb 7.8, tfs ok to start per gi 12/15 icu, restraints, no acute events, hep panel negative, sedated 12/16 no bleeding, in the icu, on abx, in restarints, sleepy, vent 12/17 is on vent, also is on abx, awake, with ogt Objective Objective Current Medications Medications (Trade) Dose Ordered Sig/Angie Route PRN Reason Start Time Stop Time Status Last Admin Dose Admin Acetaminophen (Tylenol) 650 mg Q6H PRN ORAL Mild Pain (Pain Scale 1-3) 12/12/19 12:30 01/11/20 12:29 Acetaminophen (Tylenol) 1,000 mg Q6H PRN ORAL MODERATE PAIN 12/12/19 12:30 01/11/20 12:29 Amantadine HCl (Symmetrel) 100 mg TWICE A DAY GT 12/15/19 18:00 01/11/20 08:59 12/18/19 08:39 Aspirin (Ecotrin) 325 mg DAILY ORAL 12/13/19 09:00 01/26/20 08:59 12/18/19 08:38 Atorvastatin Calcium (Lipitor) 10 mg BEDTIME GT 12/15/19 21:00 03/11/20 20:59 12/17/19 20:43 Calcium Carbonate (Os-Octavio) 1,250 mg THREE TIMES A DAY GT 12/15/19 18:00 03/11/20 09:59 12/18/19 08:38 Cefepime HCl 1 gm/ Dextrose 55 ml @ 110 mls/hr Q24H IVPB 12/12/19 16:00 12/25/19 15:59 12/17/19 15:38 Clonidine HCl (Catapres Tab) 0.1 mg Q6H PRN GT For high BP over 160 systolic 12/15/19 16:30 03/11/20 12:30 Dextrose (Dextrose 50%) 25 ml Q30M PRN IV Hypoglycemia 12/13/19 07:15 03/12/20 07:14 Dextrose (Dextrose 50%) 50 ml Q30M PRN IV Hypoglycemia 12/13/19 07:15 03/12/20 07:14 Divalproex Sodium (Depakote Sprinkles) 250 mg EVERY 12 HOURS NG 12/13/19 21:00 01/12/20 20:59 12/18/19 08:38 Docusate Sodium (Colace) 100 mg TWICE A DAY NG 12/15/19 18:00 01/14/20 17:59 12/18/19 08:38 Haloperidol Lactate 5 mg/ Dextrose 56 ml @ 224 mls/hr Q6H PRN IVPB agitation 12/18/19 10:45 02/01/20 10:44 Insulin Aspart (NovoLOG) EVERY 6 HOURS SUBQ 12/13/19 12:00 03/12/20 11:59 12/16/19 17:39 Levothyroxine Sodium (Synthroid) 75 mcg DAILY IV 12/13/19 09:00 01/11/20 09:29 12/18/19 08:38 Lorazepam (Ativan) 1 mg Q6H PRN GT For Anxiety 12/15/19 16:30 12/19/19 12:30 12/17/19 12:52 Nitroglycerin (Ntg) 0.4 mg Q5MIN X 3 DOSES PRN SL CHEST PAIN 12/12/19 12:00 01/10/20 21:44 Olanzapine (ZyPREXA) 5 mg BID GT 12/15/19 18:00 01/26/20 08:59 12/18/19 08:39 Pantoprazole (Protonix) 40 mg EVERY 12 HOURS IVP 12/14/19 09:00 01/13/20 08:59 12/18/19 08:38 Phosphorus (Phospha 250 Neutral) 250 mg THREE TIMES A DAY GT 12/15/19 09:00 01/14/20 08:59 12/18/19 08:39 Potassium Chloride (K-Dur) 40 meq TWICE A DAY NG 12/14/19 10:30 03/13/20 10:29 12/18/19 08:40 Sodium Chloride 1,000 ml @ 50 mls/hr Q20H IV 12/12/19 12:30 01/11/20 12:29 12/18/19 07:00 Last 24 Hour Vital Signs Date Time Temp Pulse Resp B/P (MAP) Pulse Ox O2 Delivery O2 Flow Rate FiO2 12/18/19 10:00 76 16 110/43 (65) 97 12/18/19 09:00 74 15 110/45 (66) 97 12/18/19 08:00 79 12/18/19 08:00 30 12/18/19 08:00 Mechanical Ventilator 12/18/19 08:00 99.1 76 15 110/42 (64) 96 12/18/19 07:20 96 12/18/19 07:19 86 18 30 12/18/19 07:00 75 15 103/43 (63) 97 12/18/19 06:30 78 15 12/18/19 06:00 76 14 103/54 (70) 97 12/18/19 05:00 74 15 98/50 (66) 98 12/18/19 04:00 30 12/18/19 04:00 Mechanical Ventilator 12/18/19 04:00 98.8 73 15 101/40 (60) 98 12/18/19 04:00 77 12/18/19 03:30 76 22 30 12/18/19 03:00 81 17 122/51 (74) 100 12/18/19 02:00 76 16 97/65 (76) 98 12/18/19 01:00 75 15 103/43 (63) 97 12/18/19 00:00 30 12/18/19 00:00 97.9 76 17 104/44 (64) 99 12/18/19 00:00 Mechanical Ventilator 12/18/19 00:00 76 12/17/19 23:19 80 21 30 12/17/19 23:00 78 19 111/46 (67) 99 12/17/19 22:00 76 16 104/40 (61) 97 12/17/19 21:00 77 16 102/40 (60) 97 12/17/19 20:00 98.4 78 21 107/45 (65) 97 12/17/19 20:00 30 12/17/19 20:00 77 12/17/19 20:00 Mechanical Ventilator 12/17/19 19:30 77 16 30 12/17/19 19:00 76 15 104/41 (62) 97 12/17/19 18:00 78 18 105/46 (65) 96 12/17/19 17:00 79 18 101/36 (57) 96 12/17/19 17:00 79 15 101/36 (57) 95 12/17/19 16:00 Mechanical Ventilator 12/17/19 16:00 83 17 100/45 (63) 96 12/17/19 16:00 83 12/17/19 16:00 30 12/17/19 15:42 88 19 30 12/17/19 15:00 94 19 104/56 (72) 95 12/17/19 14:00 102 17 105/54 (71) 95 12/17/19 13:00 115 18 104/59 (74) 90 12/17/19 12:34 150 25 139/75 (96) 100 12/17/19 12:18 40 14 107/59 (75) 12/17/19 12:15 72 15 100 12/17/19 12:00 98.9 93 26 123/96 (105) 98 12/17/19 12:00 35 12/17/19 12:00 Mechanical Ventilator 12/17/19 12:00 108 12/17/19 11:35 82 20 28 12/17/19 11:00 79 22 127/50 (75) 96 12/17/19 10:00 78 19 119/52 (74) 97 12/17/19 09:18 73 20 28 28 12/17/19 09:18 99 12/17/19 09:00 74 15 118/59 (78) 100 12/17/19 08:00 28 12/17/19 08:00 80 12/17/19 08:00 97.8 81 18 109/42 (64) 96 12/17/19 08:00 Mechanical Ventilator 12/17/19 07:14 77 16 28 12/17/19 07:00 74 15 116/42 (66) 97 12/17/19 06:30 78 15 12/17/19 06:00 73 15 111/41 (64) 99 12/17/19 05:00 73 15 114/45 (68) 99 12/17/19 04:00 28 12/17/19 04:00 98.6 73 15 109/41 (63) 98 12/17/19 04:00 78 12/17/19 04:00 Mechanical Ventilator 12/17/19 03:00 73 15 113/42 (65) 99 12/17/19 03:00 74 16 28 12/17/19 02:00 75 15 109/42 (64) 97 12/17/19 01:00 74 15 117/46 (69) 97 12/17/19 00:00 98.3 79 17 121/44 (69) 98 12/17/19 00:00 28 12/17/19 00:00 Mechanical Ventilator 12/16/19 23:37 80 17 28 12/16/19 23:30 77 17 116/45 (68) 97 12/16/19 23:00 80 17 126/52 (76) 99 12/16/19 22:59 73 12/16/19 22:00 78 17 116/47 (70) 98 12/16/19 21:00 74 15 115/48 (70) 98 12/16/19 20:00 75 15 115/50 (71) 97 12/16/19 20:00 Mechanical Ventilator 12/16/19 20:00 84 12/16/19 20:00 28 12/16/19 19:37 81 18 28 12/16/19 19:14 78 12/16/19 19:00 76 17 115/49 (71) 97 7/5/20 18:00 78 16 120/48 (72) 96 12/16/19 17:00 75 15 122/48 (72) 97 12/16/19 16:29 78 12/16/19 16:00 28 12/16/19 16:00 Mechanical Ventilator 12/16/19 16:00 98.9 73 16 116/46 (69) 97 12/16/19 15:01 73 19 28 12/16/19 15:00 73 20 120/45 (70) 98 12/16/19 14:00 76 21 119/46 (70) 98 12/16/19 13:00 78 20 123/49 (73) 98 12/16/19 12:00 28 12/16/19 12:00 Mechanical Ventilator 12/16/19 12:00 77 20 123/50 (74) 98 12/16/19 12:00 74 12/16/19 11:39 98 12/16/19 11:39 28 12/16/19 11:27 80 17 35 Intake and Output 12/17/19 12/18/19 19:00 07:00 Intake Total 1167.8864 ml 1200 ml Output Total 620 ml 550 ml Balance 547.8864 ml 650 ml IV Total 867.8864 ml 500 ml Tube Feeding 250 ml 650 ml Other 50 ml 50 ml Output Urine Total 620 ml 550 ml Labs Test 12/15/19 13:36 12/16/19 00:14 12/16/19 01:20 12/16/19 04:08 Arterial Blood pH 7.398 (7.350-7.450) Arterial Blood Partial Pressure CO2 59.0 mmHg (35.0-45.0) Arterial Blood Partial Pressure O2 89.3 mmHg (75.0-100.0) Arterial Blood HCO3 35.6 mmol/L (22.0-26.0) Arterial Blood Oxygen Saturation 96.2 % (95-100) Arterial Blood Base Excess 8.9 (-2-2) Raphael Test Positive POC Whole Blood Glucose 103 MG/DL (74-106) Vancomycin Level Trough 8.3 ug/mL (5.0-12.0) White Blood Count 5.4 K/UL (4.8-10.8) Red Blood Count 3.43 M/UL (4.20-5.40) Hemoglobin 11.0 G/DL (12.0-16.0) Hematocrit 35.4 % (37.0-47.0) Mean Corpuscular Volume 103 FL (80-99) Mean Corpuscular Hemoglobin 32.0 PG (27.0-31.0) Mean Corpuscular Hemoglobin Concent 31.0 G/DL (32.0-36.0) Red Cell Distribution Width 13.3 % (11.6-14.8) Platelet Count 169 K/UL (150-450) Mean Platelet Volume 6.0 FL (6.5-10.1) Neutrophils (%) (Auto) 65.8 % (45.0-75.0) Lymphocytes (%) (Auto) 22.6 % (20.0-45.0) Monocytes (%) (Auto) 8.7 % (1.0-10.0) Eosinophils (%) (Auto) 2.5 % (0.0-3.0) Basophils (%) (Auto) 0.4 % (0.0-2.0) Sodium Level 144 MMOL/L (136-145) Potassium Level 4.0 MMOL/L (3.5-5.1) Chloride Level 102 MMOL/L (98-107) Carbon Dioxide Level 36 MMOL/L (21-32) Anion Gap 7 mmol/L (5-15) Blood Urea Nitrogen 19 mg/dL (7-18) Creatinine 1.1 MG/DL (0.55-1.30) Estimat Glomerular Filtration Rate 47.8 mL/min (>60) Glucose Level 90 MG/DL (74-106) Calcium Level 7.5 MG/DL (8.5-10.1) Test 12/16/19 09:52 12/16/19 12:09 12/17/19 05:42 12/17/19 07:28 Arterial Blood pH 7.428 (7.350-7.450) 7.421 (7.350-7.450) Arterial Blood Partial Pressure CO2 50.8 mmHg (35.0-45.0) 53.2 mmHg (35.0-45.0) Arterial Blood Partial Pressure O2 90.5 mmHg (75.0-100.0) 71.3 mmHg (75.0-100.0) Arterial Blood HCO3 32.8 mmol/L (22.0-26.0) 33.8 mmol/L (22.0-26.0) Arterial Blood Oxygen Saturation 96.6 % (95-100) 93.7 % (95-100) Arterial Blood Base Excess 7.3 (-2-2) 8.0 (-2-2) Raphael Test Positive Positive POC Whole Blood Glucose 131 MG/DL (74-106) White Blood Count 5.9 K/UL (4.8-10.8) Red Blood Count 3.34 M/UL (4.20-5.40) Hemoglobin 10.8 G/DL (12.0-16.0) Hematocrit 34.5 % (37.0-47.0) Mean Corpuscular Volume 103 FL (80-99) Mean Corpuscular Hemoglobin 32.2 PG (27.0-31.0) Mean Corpuscular Hemoglobin Concent 31.2 G/DL (32.0-36.0) Red Cell Distribution Width 13.6 % (11.6-14.8) Platelet Count 168 K/UL (150-450) Mean Platelet Volume 7.1 FL (6.5-10.1) Neutrophils (%) (Auto) 62.3 % (45.0-75.0) Lymphocytes (%) (Auto) 22.3 % (20.0-45.0) Monocytes (%) (Auto) 9.8 % (1.0-10.0) Eosinophils (%) (Auto) 4.5 % (0.0-3.0) Basophils (%) (Auto) 1.1 % (0.0-2.0) Sodium Level 146 MMOL/L (136-145) Potassium Level 4.2 MMOL/L (3.5-5.1) Chloride Level 106 MMOL/L (98-107) Carbon Dioxide Level 36 MMOL/L (21-32) Anion Gap 4 mmol/L (5-15) Blood Urea Nitrogen 25 mg/dL (7-18) Creatinine 0.9 MG/DL (0.55-1.30) Estimat Glomerular Filtration Rate > 60 mL/min (>60) Glucose Level 118 MG/DL (74-106) Calcium Level 8.0 MG/DL (8.5-10.1) Phosphorus Level 2.2 MG/DL (2.5-4.9) Magnesium Level 1.9 MG/DL (1.8-2.4) Total Bilirubin 0.5 MG/DL (0.2-1.0) Aspartate Amino Transf (AST/SGOT) 18 U/L (15-37) Alanine Aminotransferase (ALT/SGPT) 54 U/L (12-78) Alkaline Phosphatase 43 U/L (46-116) Total Protein 6.3 G/DL (6.4-8.2) Albumin 3.1 G/DL (3.4-5.0) Globulin 3.2 g/dL Albumin/Globulin Ratio 1.0 (1.0-2.7) Test 12/17/19 12:10 12/18/19 04:00 Arterial Blood pH 7.316 (7.350-7.450) Arterial Blood Partial Pressure CO2 74.0 mmHg (35.0-45.0) Arterial Blood Partial Pressure O2 62.2 mmHg (75.0-100.0) Arterial Blood HCO3 36.9 mmol/L (22.0-26.0) Arterial Blood Oxygen Saturation 89.0 % (95-100) Arterial Blood Base Excess 8.5 (-2-2) Raphael Test Positive White Blood Count 6.4 K/UL (4.8-10.8) Red Blood Count 3.17 M/UL (4.20-5.40) Hemoglobin 10.2 G/DL (12.0-16.0) Hematocrit 33.2 % (37.0-47.0) Mean Corpuscular Volume 105 FL (80-99) Mean Corpuscular Hemoglobin 32.1 PG (27.0-31.0) Mean Corpuscular Hemoglobin Concent 30.7 G/DL (32.0-36.0) Red Cell Distribution Width 13.5 % (11.6-14.8) Platelet Count 157 K/UL (150-450) Mean Platelet Volume 6.8 FL (6.5-10.1) Neutrophils (%) (Auto) 65.2 % (45.0-75.0) Lymphocytes (%) (Auto) 19.6 % (20.0-45.0) Monocytes (%) (Auto) 10.3 % (1.0-10.0) Eosinophils (%) (Auto) 3.8 % (0.0-3.0) Basophils (%) (Auto) 1.1 % (0.0-2.0) Sodium Level 148 MMOL/L (136-145) Potassium Level 4.3 MMOL/L (3.5-5.1) Chloride Level 110 MMOL/L (98-107) Carbon Dioxide Level 31 MMOL/L (21-32) Anion Gap 7 mmol/L (5-15) Blood Urea Nitrogen 24 mg/dL (7-18) Creatinine 0.9 MG/DL (0.55-1.30) Estimat Glomerular Filtration Rate > 60 mL/min (>60) Glucose Level 89 MG/DL (74-106) Calcium Level 8.0 MG/DL (8.5-10.1) Height (Feet): 5 Height (Inches): 7.00 Weight (Pounds): 210 Objective Vitals: reviewed General: NAD HEENT: nc, at ++ogt Neck: supple ++intubated Chest: decreased breath sounds bilaterally Cardiovascular: RRR, no s3, s4 Abdomen: soft, nontender, nd Extremities: 1-2 + edema, scd's Neuro: nonverbal : restraints Frank Escobar MD Dec 18, 2019 11:27
[2019-12-18] MEDS ORDERED: Haloperidol Lactate 5 MG in D5W 55 ML IVPB PRN (11:45)
--- NOTE | 2019-12-18 12:00 | NUR ---
NURSE NOTES: Pt repositioned, oral care provided, no dsitress noted. Head to toe assessment performed and documented. Pt currently afebrile. Continues to attempt pull;ing out ETT, restraints remain on. Will continue to monitor.
--- NOTE | 2019-12-18 12:35 | General Progress Note ---
Assessment/Plan Status: progressing Assessment/Plan: Assessment - Resp failure - r/o COVID -- x 2 negative - COPD - HTN - Anemia - Abnormal LFT Recommendations - TF - Elevate HOB - abx - follow labs - f/u hepatitis serologies -repeat labs Subjective ROS Limited/Unobtainable: No Allergies: Coded Allergies: LITHIUM (Verified Allergy, Unknown, 02/07/19) Objective Last 24 Hour Vital Signs Date Time Temp Pulse Resp B/P (MAP) Pulse Ox O2 Delivery O2 Flow Rate FiO2 12/18/19 12:00 98.6 15 113/47 (69) 98 12/18/19 12:00 30 12/18/19 12:00 76 12/18/19 12:00 Mechanical Ventilator 12/18/19 11:13 76 15 30 12/18/19 11:00 78 20 108/43 (64) 100 12/18/19 10:00 76 16 110/43 (65) 97 12/18/19 09:00 74 15 110/45 (66) 97 12/18/19 08:00 79 12/18/19 08:00 30 12/18/19 08:00 Mechanical Ventilator 12/18/19 08:00 99.1 76 15 110/42 (64) 96 12/18/19 07:20 96 12/18/19 07:19 86 18 30 12/18/19 07:00 75 15 103/43 (63) 97 12/18/19 06:30 78 15 12/18/19 06:00 76 14 103/54 (70) 97 12/18/19 05:00 74 15 98/50 (66) 98 12/18/19 04:00 30 12/18/19 04:00 Mechanical Ventilator 12/18/19 04:00 98.8 73 15 101/40 (60) 98 12/18/19 04:00 77 12/18/19 03:30 76 22 30 12/18/19 03:00 81 17 122/51 (74) 100 12/18/19 02:00 76 16 97/65 (76) 98 12/18/19 01:00 75 15 103/43 (63) 97 12/18/19 00:00 30 12/18/19 00:00 97.9 76 17 104/44 (64) 99 12/18/19 00:00 Mechanical Ventilator 12/18/19 00:00 76 12/17/19 23:19 80 21 30 12/17/19 23:00 78 19 111/46 (67) 99 12/17/19 22:00 76 16 104/40 (61) 97 12/17/19 21:00 77 16 102/40 (60) 97 12/17/19 20:00 98.4 78 21 107/45 (65) 97 12/17/19 20:00 30 12/17/19 20:00 77 12/17/19 20:00 Mechanical Ventilator 12/17/19 19:30 77 16 30 12/17/19 19:00 76 15 104/41 (62) 97 12/17/19 18:00 78 18 105/46 (65) 96 12/17/19 17:00 79 18 101/36 (57) 96 12/17/19 17:00 79 15 101/36 (57) 95 12/17/19 16:00 Mechanical Ventilator 12/17/19 16:00 83 17 100/45 (63) 96 12/17/19 16:00 83 12/17/19 16:00 30 12/17/19 15:42 88 19 30 12/17/19 15:00 94 19 104/56 (72) 95 12/17/19 14:00 102 17 105/54 (71) 95 12/17/19 13:00 115 18 104/59 (74) 90 Intake and Output 12/17/19 12/18/19 19:00 07:00 Intake Total 1167.8864 ml 1200 ml Output Total 620 ml 550 ml Balance 547.8864 ml 650 ml IV Total 867.8864 ml 500 ml Tube Feeding 250 ml 650 ml Other 50 ml 50 ml Output Urine Total 620 ml 550 ml Laboratory Tests 12/17/19 17:13: POC Whole Blood Glucose 98 12/18/19 04:00: White Blood Count 6.4, Red Blood Count 3.17L, Hemoglobin 10.2L, Hematocrit 33.2L , Mean Corpuscular Volume 105H, Mean Corpuscular Hemoglobin 32.1H, Mean Corpuscular Hemoglobin Concent 30.7L, Red Cell Distribution Width 13.5, Platelet Count 157, Mean Platelet Volume 6.8, Neutrophils (%) (Auto) 65.2, Lymphocytes (%) (Auto) 19.6L, Monocytes (%) (Auto) 10.3H, Eosinophils (%) (Auto ) 3.8H, Basophils (%) (Auto) 1.1, Sodium Level 148H, Potassium Level 4.3, Chloride Level 110H, Carbon Dioxide Level 31, Anion Gap 7, Blood Urea Nitrogen 24H, Creatinine 0.9, Estimat Glomerular Filtration Rate > 60, Glucose Level 89, Calcium Level 8.0L 12/18/19 06:05: POC Whole Blood Glucose [Pending] Height (Feet): 5 Height (Inches): 7.00 Weight (Pounds): 210 General Appearance: lethargic EENT: normal ENT inspection Neck: supple Cardiovascular: tachycardia Respiratory/Chest: decreased breath sounds Abdomen: soft, hypoactive bowel sounds Extremities: non-tender Kirk Vidal MD Dec 18, 2019 12:35
--- NOTE | 2019-12-18 13:00 | NUR ---
NURSE NOTES: Dr Ochoa assessing pt.
--- NOTE | 2019-12-18 13:30 | NUR ---
NURSE NOTES: Dr Myers assessing pt at bedside.
--- NOTE | 2019-12-18 13:53 | Nephrology Progress Note ---
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 Respiratory distress most likely secondary to pulmonary edema and or COPD exacerbation. Hyponatremia. Obese. Hypothyroidism. Elevated d-dimer. Elevated liver enzymes Plan December 17: Remains intubated. Remains full code. Failed weaning. Stable from renal standpoint of view. Continue per consultants. Discussed with DARREL [place]en[place]. December 16: Remains intubated. Full code. Weaning in process. Stable from renal standpoint of view. December 15: Remains vented. Electrolytes improved. Continue per consultants. December 14: Patient remains in ICU intubated on ventilator. Potassium low. Phosphorus low. Supplements given. Renal parameters are stable. Continue per consultants. December 13: Patient remains in ICU intubated on ventilator. Discussed with RN. Labs reviewed. Creatinine 1.3. Potassium supplements given. Mag sulfate IV 2 g given. Continue per consultants. December 12: Patient in ICU. Intubated on ventilator. Discussed with RN. Labs reviewed. Potassium supplement given. Continue per consultants. Arterial blood gas indicative of CO2 retention. Patient on the way to ICU for intubation. Continue per pulmonary management. Pulmonary support, Check 2D echocardiogram. Previous 2D echo had a 50% ejection fraction. Keep blood sugar and blood pressure in check. Thyroid panel. Monitor electrolytes and renal parameters. Afterload reduction. Diuretics Monitor serum calcium, supplements via NG tube. Per orders. Subjective ROS Limited/Unobtainable: Yes Objective Objective Last 24 Hour Vital Signs Date Time Temp Pulse Resp B/P (MAP) Pulse Ox O2 Delivery O2 Flow Rate FiO2 12/18/19 13:00 76 20 110/41 (64) 100 12/18/19 12:00 98.6 15 113/47 (69) 98 12/18/19 12:00 30 12/18/19 12:00 76 12/18/19 12:00 Mechanical Ventilator 12/18/19 11:13 76 15 30 12/18/19 11:00 78 20 108/43 (64) 100 12/18/19 10:00 76 16 110/43 (65) 97 12/18/19 09:00 74 15 110/45 (66) 97 12/18/19 08:00 79 12/18/19 08:00 30 12/18/19 08:00 Mechanical Ventilator 12/18/19 08:00 99.1 76 15 110/42 (64) 96 12/18/19 07:20 96 12/18/19 07:19 86 18 30 12/18/19 07:00 75 15 103/43 (63) 97 12/18/19 06:30 78 15 12/18/19 06:00 76 14 103/54 (70) 97 12/18/19 05:00 74 15 98/50 (66) 98 12/18/19 04:00 30 12/18/19 04:00 Mechanical Ventilator 12/18/19 04:00 98.8 73 15 101/40 (60) 98 12/18/19 04:00 77 12/18/19 03:30 76 22 30 12/18/19 03:00 81 17 122/51 (74) 100 12/18/19 02:00 76 16 97/65 (76) 98 12/18/19 01:00 75 15 103/43 (63) 97 12/18/19 00:00 30 12/18/19 00:00 97.9 76 17 104/44 (64) 99 12/18/19 00:00 Mechanical Ventilator 12/18/19 00:00 76 12/17/19 23:19 80 21 30 12/17/19 23:00 78 19 111/46 (67) 99 12/17/19 22:00 76 16 104/40 (61) 97 12/17/19 21:00 77 16 102/40 (60) 97 12/17/19 20:00 98.4 78 21 107/45 (65) 97 12/17/19 20:00 30 12/17/19 20:00 77 12/17/19 20:00 Mechanical Ventilator 12/17/19 19:30 77 16 30 12/17/19 19:00 76 15 104/41 (62) 97 12/17/19 18:00 78 18 105/46 (65) 96 12/17/19 17:00 79 18 101/36 (57) 96 12/17/19 17:00 79 15 101/36 (57) 95 12/17/19 16:00 Mechanical Ventilator 12/17/19 16:00 83 17 100/45 (63) 96 12/17/19 16:00 83 12/17/19 16:00 30 12/17/19 15:42 88 19 30 12/17/19 15:00 94 19 104/56 (72) 95 12/17/19 14:00 102 17 105/54 (71) 95 Intake and Output 12/17/19 12/18/19 19:00 07:00 Intake Total 1167.8864 ml 1200 ml Output Total 620 ml 550 ml Balance 547.8864 ml 650 ml IV Total 867.8864 ml 500 ml Tube Feeding 250 ml 650 ml Other 50 ml 50 ml Output Urine Total 620 ml 550 ml Laboratory Tests 12/17/19 17:13: POC Whole Blood Glucose 98 12/18/19 04:00: White Blood Count 6.4, Red Blood Count 3.17L, Hemoglobin 10.2L, Hematocrit 33.2L , Mean Corpuscular Volume 105H, Mean Corpuscular Hemoglobin 32.1H, Mean Corpuscular Hemoglobin Concent 30.7L, Red Cell Distribution Width 13.5, Platelet Count 157, Mean Platelet Volume 6.8, Neutrophils (%) (Auto) 65.2, Lymphocytes (%) (Auto) 19.6L, Monocytes (%) (Auto) 10.3H, Eosinophils (%) (Auto ) 3.8H, Basophils (%) (Auto) 1.1, Sodium Level 148H, Potassium Level 4.3, Chloride Level 110H, Carbon Dioxide Level 31, Anion Gap 7, Blood Urea Nitrogen 24H, Creatinine 0.9, Estimat Glomerular Filtration Rate > 60, Glucose Level 89, Calcium Level 8.0L 12/18/19 06:05: POC Whole Blood Glucose [Pending] Height (Feet): 5 Height (Inches): 7.00 Weight (Pounds): 210 General Appearance: no apparent distress EENT: other - Remains intubated Cardiovascular: normal rate Respiratory/Chest: decreased breath sounds Abdomen: distended Bryan Ochoa MD Dec 18, 2019 13:53
--- NOTE | 2019-12-18 14:00 | NUR ---
NURSE NOTES: Pt repositioned, no distress noted.
--- NOTE | 2019-12-18 15:15 | NUR ---
NURSE NOTES: Pt placed on CPAP with PS8 FiO2 30% by RT Sallie per weaning protocol. No distress noted. Will continue to monitor.
--- NOTE | 2019-12-18 15:56 | Infectious Diseases Prog Note ---
Assessment/Plan Assessment/Plan IMPRESSION: COPD exacerbation, Pneumonia, COID19 X 2: negative Acute respiratory failure with hypercapnia Dementia, Parkinson, Mitral valve regurgitation, Hypertension, Hypothyroidism. Hypokalemia RECOMMENDATION: Continue IV cefepime. Case was D/W RN Subjective ROS Limited/Unobtainable: Yes Constitutional: Denies: fever Respiratory: Reports: other - on weaning process Allergies: Coded Allergies: LITHIUM (Verified Allergy, Unknown, 02/07/19) Objective Last 24 Hour Vital Signs Date Time Temp Pulse Resp B/P (MAP) Pulse Ox O2 Delivery O2 Flow Rate FiO2 12/18/19 15:12 88 22 30 30 12/18/19 15:00 89 15 103/43 (63) 97 12/18/19 14:00 77 15 106/76 (86) 97 12/18/19 13:00 76 20 110/41 (64) 100 12/18/19 12:00 98.6 15 113/47 (69) 98 12/18/19 12:00 30 12/18/19 12:00 76 12/18/19 12:00 Mechanical Ventilator 12/18/19 11:13 76 15 30 12/18/19 11:00 78 20 108/43 (64) 100 12/18/19 10:00 76 16 110/43 (65) 97 12/18/19 09:00 74 15 110/45 (66) 97 12/18/19 08:00 79 12/18/19 08:00 30 12/18/19 08:00 Mechanical Ventilator 12/18/19 08:00 99.1 76 15 110/42 (64) 96 12/18/19 07:20 96 12/18/19 07:19 86 18 30 12/18/19 07:00 75 15 103/43 (63) 97 12/18/19 06:30 78 15 12/18/19 06:00 76 14 103/54 (70) 97 12/18/19 05:00 74 15 98/50 (66) 98 12/18/19 04:00 30 12/18/19 04:00 Mechanical Ventilator 12/18/19 04:00 98.8 73 15 101/40 (60) 98 12/18/19 04:00 77 12/18/19 03:30 76 22 30 12/18/19 03:00 81 17 122/51 (74) 100 12/18/19 02:00 76 16 97/65 (76) 98 12/18/19 01:00 75 15 103/43 (63) 97 12/18/19 00:00 30 12/18/19 00:00 97.9 76 17 104/44 (64) 99 12/18/19 00:00 Mechanical Ventilator 12/18/19 00:00 76 12/17/19 23:19 80 21 30 12/17/19 23:00 78 19 111/46 (67) 99 12/17/19 22:00 76 16 104/40 (61) 97 12/17/19 21:00 77 16 102/40 (60) 97 12/17/19 20:00 98.4 78 21 107/45 (65) 97 12/17/19 20:00 30 12/17/19 20:00 77 12/17/19 20:00 Mechanical Ventilator 12/17/19 19:30 77 16 30 12/17/19 19:00 76 15 104/41 (62) 97 12/17/19 18:00 78 18 105/46 (65) 96 12/17/19 17:00 79 18 101/36 (57) 96 12/17/19 17:00 79 15 101/36 (57) 95 12/17/19 16:00 Mechanical Ventilator 12/17/19 16:00 83 17 100/45 (63) 96 12/17/19 16:00 83 12/17/19 16:00 30 Height (Feet): 5 Height (Inches): 7.00 Weight (Pounds): 210 Respiratory/Chest: lungs clear, other - on ventilator Cardiovascular: normal rate Abdomen: soft, non tender, other - orogasric tube Extremities: other - mild hand edema Neurologic/Psychiatric: alert, responsive Laboratory Tests Test 12/17/19 17:13 12/18/19 04:00 12/18/19 06:05 POC Whole Blood Glucose 98 MG/DL (74-106) Pending White Blood Count 6.4 K/UL (4.8-10.8) Red Blood Count 3.17 M/UL (4.20-5.40) L Hemoglobin 10.2 G/DL (12.0-16.0) L Hematocrit 33.2 % (37.0-47.0) L Mean Corpuscular Volume 105 FL (80-99) H Mean Corpuscular Hemoglobin 32.1 PG (27.0-31.0) H Mean Corpuscular Hemoglobin Concent 30.7 G/DL (32.0-36.0) L Red Cell Distribution Width 13.5 % (11.6-14.8) Platelet Count 157 K/UL (150-450) Mean Platelet Volume 6.8 FL (6.5-10.1) Neutrophils (%) (Auto) 65.2 % (45.0-75.0) Lymphocytes (%) (Auto) 19.6 % (20.0-45.0) L Monocytes (%) (Auto) 10.3 % (1.0-10.0) H Eosinophils (%) (Auto) 3.8 % (0.0-3.0) H Basophils (%) (Auto) 1.1 % (0.0-2.0) Sodium Level 148 MMOL/L (136-145) H Potassium Level 4.3 MMOL/L (3.5-5.1) Chloride Level 110 MMOL/L (98-107) H Carbon Dioxide Level 31 MMOL/L (21-32) Anion Gap 7 mmol/L (5-15) Blood Urea Nitrogen 24 mg/dL (7-18) H Creatinine 0.9 MG/DL (0.55-1.30) Estimat Glomerular Filtration Rate > 60 mL/min (>60) Glucose Level 89 MG/DL (74-106) Calcium Level 8.0 MG/DL (8.5-10.1) L Current Medications Medications (Trade) Dose Ordered Sig/Angie Route PRN Reason Start Time Stop Time Status Last Admin Dose Admin Acetaminophen (Tylenol) 650 mg Q6H PRN ORAL Mild Pain (Pain Scale 1-3) 12/12/19 12:30 01/11/20 12:29 Acetaminophen (Tylenol) 1,000 mg Q6H PRN ORAL MODERATE PAIN 12/12/19 12:30 01/11/20 12:29 Amantadine HCl (Symmetrel) 100 mg TWICE A DAY GT 12/15/19 18:00 01/11/20 08:59 12/18/19 08:39 Aspirin (Ecotrin) 325 mg DAILY ORAL 12/13/19 09:00 01/26/20 08:59 12/18/19 08:38 Atorvastatin Calcium (Lipitor) 10 mg BEDTIME GT 12/15/19 21:00 03/11/20 20:59 12/17/19 20:43 Calcium Carbonate (Os-Octavio) 1,250 mg THREE TIMES A DAY GT 12/15/19 18:00 03/11/20 09:59 12/18/19 12:02 Cefepime HCl 1 gm/ Dextrose 55 ml @ 110 mls/hr Q24H IVPB 12/12/19 16:00 12/25/19 15:59 12/17/19 15:38 Clonidine HCl (Catapres Tab) 0.1 mg Q6H PRN GT For high BP over 160 systolic 12/15/19 16:30 03/11/20 12:30 Dextrose (Dextrose 50%) 25 ml Q30M PRN IV Hypoglycemia 12/13/19 07:15 03/12/20 07:14 Dextrose (Dextrose 50%) 50 ml Q30M PRN IV Hypoglycemia 12/13/19 07:15 03/12/20 07:14 Divalproex Sodium (Depakote Sprinkles) 250 mg EVERY 12 HOURS NG 12/13/19 21:00 01/12/20 20:59 12/18/19 08:38 Docusate Sodium (Colace) 100 mg TWICE A DAY NG 12/15/19 18:00 01/14/20 17:59 12/18/19 08:38 Haloperidol Lactate 5 mg/ Dextrose 56 ml @ 224 mls/hr Q6H PRN IVPB agitation 12/18/19 10:45 02/01/20 10:44 Insulin Aspart (NovoLOG) EVERY 6 HOURS SUBQ 12/13/19 12:00 03/12/20 11:59 12/16/19 17:39 Levothyroxine Sodium (Synthroid) 75 mcg DAILY IV 12/13/19 09:00 01/11/20 09:29 12/18/19 08:38 Lorazepam (Ativan) 1 mg Q6H PRN GT For Anxiety 12/15/19 16:30 12/19/19 12:30 12/17/19 12:52 Nitroglycerin (Ntg) 0.4 mg Q5MIN X 3 DOSES PRN SL CHEST PAIN 12/12/19 12:00 01/10/20 21:44 Olanzapine (ZyPREXA) 5 mg BID GT 12/15/19 18:00 01/26/20 08:59 12/18/19 08:39 Pantoprazole (Protonix) 40 mg EVERY 12 HOURS IVP 12/14/19 09:00 01/13/20 08:59 12/18/19 08:38 Phosphorus (Phospha 250 Neutral) 250 mg THREE TIMES A DAY GT 12/15/19 09:00 01/14/20 08:59 12/18/19 12:02 Sodium Chloride 1,000 ml @ 50 mls/hr Q20H IV 12/12/19 12:30 01/11/20 12:29 12/18/19 07:00 Lei Chan MD Dec 18, 2019 15:56
--- NOTE | 2019-12-18 15:59 | NUR ---
ST NOTE/SWALLOW STATUS ORDER RECEIVED FOR BEDSIDE SWALLOW EVALUATION. PATIENT CURRENTLY IN ICU AND ORALLY INTUBATED, THEREFORE, UNABLE TO SAFELY PARTICIPATE IN A BEDSIDE SWALLOW EVALUATION AT THIS TIME. ST WILL FOLLOWUP 12/19/19. THANK YOU FOR THIS REFERRAL.
--- NOTE | 2019-12-18 16:00 | NUR ---
NURSE NOTES: Pt repositioned, oral care provided, pt afebrile, head to toe assessment performed and charted, pt remains on CPAP mode and is in no distress. Will continue to monitor.
[2019-12-18] MEDS: Cefepime HCl 1 GM in D5W 55 ML IVPB SCH (16:25)
--- NOTE | 2019-12-18 17:12 | Cardiac Electrophysiology PN ---
Assessment/Plan Assessment/Plan 1. Respiratory failure with BNP of more than 19,000. Echo showed normal ejection fraction. Off Lasix 2. Bradycardia requiring atropine, Likely due to respiratory failure as was on T piece at the time. No recurrence on the Vent 3. Respiratory failure. Patient is intubated on the vent on steroids and antibiotic 4. History of Parkinson disease. 5. Hyperlipidemia. 6. Metabolic alkalosis. Better off Lasix DW RN Subjective Subjective Intubated on the vent off pressors. While on T piece, laney down to 40, received 0.4 Atropine and was put back on the vent again. On 30% Fio2 and PEEP 5 Objective Last 24 Hour Vital Signs Date Time Temp Pulse Resp B/P (MAP) Pulse Ox O2 Delivery O2 Flow Rate FiO2 12/18/19 16:00 30 12/18/19 16:00 Mechanical Ventilator 12/18/19 16:00 76 12/18/19 16:00 98.4 88 25 117/50 (72) 97 12/18/19 16:00 30 12/18/19 15:15 30 12/18/19 15:12 88 22 30 30 12/18/19 15:00 89 15 103/43 (63) 97 12/18/19 14:00 77 15 106/76 (86) 97 12/18/19 13:00 76 20 110/41 (64) 100 12/18/19 12:00 98.6 15 113/47 (69) 98 12/18/19 12:00 30 12/18/19 12:00 76 12/18/19 12:00 Mechanical Ventilator 12/18/19 11:13 76 15 30 12/18/19 11:00 78 20 108/43 (64) 100 12/18/19 10:00 76 16 110/43 (65) 97 12/18/19 09:00 74 15 110/45 (66) 97 12/18/19 08:00 79 12/18/19 08:00 30 12/18/19 08:00 Mechanical Ventilator 12/18/19 08:00 99.1 76 15 110/42 (64) 96 12/18/19 07:20 96 12/18/19 07:19 86 18 30 12/18/19 07:00 75 15 103/43 (63) 97 12/18/19 06:30 78 15 12/18/19 06:00 76 14 103/54 (70) 97 12/18/19 05:00 74 15 98/50 (66) 98 12/18/19 04:00 30 12/18/19 04:00 Mechanical Ventilator 12/18/19 04:00 98.8 73 15 101/40 (60) 98 12/18/19 04:00 77 12/18/19 03:30 76 22 30 12/18/19 03:00 81 17 122/51 (74) 100 12/18/19 02:00 76 16 97/65 (76) 98 12/18/19 01:00 75 15 103/43 (63) 97 12/18/19 00:00 30 12/18/19 00:00 97.9 76 17 104/44 (64) 99 12/18/19 00:00 Mechanical Ventilator 12/18/19 00:00 76 12/17/19 23:19 80 21 30 12/17/19 23:00 78 19 111/46 (67) 99 12/17/19 22:00 76 16 104/40 (61) 97 12/17/19 21:00 77 16 102/40 (60) 97 12/17/19 20:00 98.4 78 21 107/45 (65) 97 12/17/19 20:00 30 12/17/19 20:00 77 12/17/19 20:00 Mechanical Ventilator 12/17/19 19:30 77 16 30 12/17/19 19:00 76 15 104/41 (62) 97 12/17/19 18:00 78 18 105/46 (65) 96 Intake and Output 12/17/19 12/18/19 19:00 07:00 Intake Total 1167.8864 ml 1200 ml Output Total 620 ml 550 ml Balance 547.8864 ml 650 ml IV Total 867.8864 ml 500 ml Tube Feeding 250 ml 650 ml Other 50 ml 50 ml Output Urine Total 620 ml 550 ml Laboratory Tests Test 12/17/19 17:13 12/18/19 04:00 12/18/19 06:05 POC Whole Blood Glucose 98 MG/DL (74-106) Pending White Blood Count 6.4 K/UL (4.8-10.8) Red Blood Count 3.17 M/UL (4.20-5.40) L Hemoglobin 10.2 G/DL (12.0-16.0) L Hematocrit 33.2 % (37.0-47.0) L Mean Corpuscular Volume 105 FL (80-99) H Mean Corpuscular Hemoglobin 32.1 PG (27.0-31.0) H Mean Corpuscular Hemoglobin Concent 30.7 G/DL (32.0-36.0) L Red Cell Distribution Width 13.5 % (11.6-14.8) Platelet Count 157 K/UL (150-450) Mean Platelet Volume 6.8 FL (6.5-10.1) Neutrophils (%) (Auto) 65.2 % (45.0-75.0) Lymphocytes (%) (Auto) 19.6 % (20.0-45.0) L Monocytes (%) (Auto) 10.3 % (1.0-10.0) H Eosinophils (%) (Auto) 3.8 % (0.0-3.0) H Basophils (%) (Auto) 1.1 % (0.0-2.0) Sodium Level 148 MMOL/L (136-145) H Potassium Level 4.3 MMOL/L (3.5-5.1) Chloride Level 110 MMOL/L (98-107) H Carbon Dioxide Level 31 MMOL/L (21-32) Anion Gap 7 mmol/L (5-15) Blood Urea Nitrogen 24 mg/dL (7-18) H Creatinine 0.9 MG/DL (0.55-1.30) Estimat Glomerular Filtration Rate > 60 mL/min (>60) Glucose Level 89 MG/DL (74-106) Calcium Level 8.0 MG/DL (8.5-10.1) L Objective HEAD AND NECK: Shows she is orally intubated with no JVD. LUNGS: Coarse rhonchi. CARDIOVASCULAR: Shows regular S1 and S2 and tachycardic. ABDOMEN: Soft. EXTREMITIES: No pitting edema. Cameron Davies MD Dec 18, 2019 17:11
--- NOTE | 2019-12-18 18:00 | NUR ---
NURSE NOTES: Pt repositioned, remains on CPAP mode, left message for Dr Myers per his request informing him pt is tolerating weaning so far and requesting instruction for next step. Awaiting call back.
--- NOTE | 2019-12-18 19:30 | NUR ---
NURSE NOTES: received pt from Yessy. during change of shift. pt bit ETT tube and was able to self Extubate. Doctor Louis notified and ordered BIPAP for Pt.
--- NOTE | 2019-12-18 19:39 | NUR ---
NURSE NOTES: Pt placed back on AC mode per RT Rolando until further notice from Dr Myers. Report given to Miguel Rangel, RN- endorsed to him that I left message for Dr Myers regarding weaning.
--- NOTE | 2019-12-18 20:00 | NUR ---
NURSE NOTES: Pt zoraida sated with BIPAP on. Called Doctor Louis to notify. she ordered for another re intubation. called the ER to notify ER doctor Yesenia.
--- NOTE | 2019-12-18 20:00 | NUR ---
NURSE NOTES: Pt de sated with BIPAP on. Called Doctor Louis to notify. he ordered for another re intubation and fentanyl drip for sedation. called the ER to notify ER doctor Yesenia.
[2019-12-18] MEDS: LORazepam 0.5mg tab GT PRN (20:02)
--- NOTE | 2019-12-18 20:15 | NUR ---
NURSE NOTES: ER doctor Yesenia came to Re intubate. Whit RT, hBanu RT, Es RN, Miguel RN, Lilia RN assisted. 20 Etomidate given, and 100MG Rocuronium Given. Doctor Yesenia established 7.5 ETT at 23CC. ordered stat CXRAY to confirm intubation.
--- NOTE | 2019-12-18 20:20 | NUR ---
NURSE NOTES: pt bit OGT. Ogt taken out. Es Draper RN and Lilia ROJO re inserted Oral Gastric tube. ordered KUB, awaiting imaging (KUB) result to confirm placement.
[2019-12-18] MEDS: fentaNYL 2500mcg/NS 250ml 250 ML IV SCH (20:53)
[2019-12-18] MEDS ORDERED: Rocuronium Bromide 100mg/10ml Inj IV ONE (21:15)
[2019-12-18] MEDS ORDERED: Etomidate 40mg/20ml Inj IV ONE (21:15)
--- NOTE | 2019-12-18 21:31 | NUR ---
NURSE NOTES: Depakote and Lipitor NG not givien. awaiting KUB results to confirm NG placement.
--- NOTE | 2019-12-18 21:33 | Diagnostic Imaging Report ---
EXAM: XR Chest, 1 View CLINICAL HISTORY: S/P INTUB TECHNIQUE: Frontal view of the chest. COMPARISON: Chest radiograph dated 12/17/2019. FINDINGS: Lungs: Increased bibasilar and retrocardiac airspace densities. Pleural space: Unremarkable. No pneumothorax. Heart: Increased lucency along the right heart border. Cardiomegaly. Mediastinum: Unremarkable. Bones/joints: Unremarkable. Vasculature: Atherosclerotic vascular disease. Tubes, lines and devices: Endotracheal tube terminates approximately 6 mm from the du. Interval retraction of enteric tube, with tip overlying the proximal thorax and side-port overlying the lower cervical spine. IMPRESSION: 1. Endotracheal tube 6 mm from the du. Consider interval mild retraction. 2. Malposition of enteric tube, which has intervalley retracted overlying the proximal thorax. Recommend repositioning. 3. Subtle lucency along the right heart border, may represent small focus of pneumomediastinum. 4. Increased bibasilar airspace opacities. May represent infectious process, atelectasis, pulmonary edema. Given meniscal appearance in the right lung base, likely some component of pleural effusion.
--- NOTE | 2019-12-18 21:36 | Diagnostic Imaging Report ---
EXAM: XR Abdomen, 2 Views CLINICAL HISTORY: NGT TECHNIQUE: Frontal view of the abdomen/pelvis with upright view of the abdomen. COMPARISON: No relevant prior studies available. FINDINGS: Lower thorax: Esophagogastric tube terminates within the gastric body. Bibasilar atelectasis and a small right pleural effusion. Cardiomegaly. Intraperitoneal space: No free air. Gastrointestinal tract: Mild gaseous distention of the transverse colon. IMPRESSION: 1. Esophagogastric tube terminates within the gastric body. 2. Bibasilar atelectasis and a small right pleural effusion.
--- NOTE | 2019-12-18 22:19 | General Progress Note ---
Assessment/Plan Problem List: (1) Dyspnea ICD Codes: R06.00 - Dyspnea, unspecified SNOMED: 122015269 (2) Hypothyroidism ICD Codes: E03.9 - Hypothyroidism, unspecified SNOMED: 49336290 (3) Obese ICD Codes: E66.9 - Obesity, unspecified SNOMED: 479674078, 647613379 (4) Psychosis ICD Codes: F29 - Unspecified psychosis not due to a substance or known physiological condition SNOMED: 18712953 (5) Respiratory failure ICD Codes: J96.90 - Respiratory failure, unspecified, unspecified whether with hypoxia or hypercapnia SNOMED: 968109249 (6) Respiratory distress ICD Codes: R06.03 - Acute respiratory distress SNOMED: 873741175 (7) Dyspnea ICD Codes: R06.00 - Dyspnea, unspecified SNOMED: 517190348 (8) Pneumonia ICD Codes: J18.9 - Pneumonia, unspecified organism SNOMED: 123347776 (9) Acute and chronic respiratory failure ICD Codes: J96.20 - Acute and chronic respiratory failure, unspecified whether with hypoxia or hypercapnia SNOMED: 62723886 (10) Diabetes mellitus type 2 in nonobese ICD Codes: E11.9 - Type 2 diabetes mellitus without complications SNOMED: 692405005 (11) CHF (congestive heart failure) ICD Codes: I50.9 - Heart failure, unspecified SNOMED: 63119692 Qualifiers: Qualified Codes: I50.9 - Heart failure, unspecified (12) Hypoxia ICD Codes: R09.02 - Hypoxemia SNOMED: 738065986 (13) Elevated d-dimer ICD Codes: R79.89 - Other specified abnormal findings of blood chemistry SNOMED: 111101083 (14) Schizophrenia ICD Codes: F20.9 - Schizophrenia, unspecified SNOMED: 52985218 (15) Parkinson disease ICD Codes: G20 - Parkinson's disease SNOMED: 58604728 Status: progressing Assessment/Plan: resp insuff needs fluid management has chf no fever supportive rx pna covid negative pleural effusion mrsa of nares Subjective ROS Limited/Unobtainable: Yes Allergies: Coded Allergies: LITHIUM (Verified Allergy, Unknown, 02/07/19) Objective Last 24 Hour Vital Signs Date Time Temp Pulse Resp B/P (MAP) Pulse Ox O2 Delivery O2 Flow Rate FiO2 12/18/19 20:53 25 147/62 Mechanical Ventilator 100 12/18/19 20:45 109 26 100 12/18/19 19:54 108 20 100 100 12/18/19 19:00 98 28 113/50 (71) 93 12/18/19 18:00 98 24 112/48 (69) 96 12/18/19 17:00 97 26 115/42 (66) 92 12/18/19 17:00 91 24 30 12/18/19 16:00 30 12/18/19 16:00 Mechanical Ventilator 12/18/19 16:00 76 12/18/19 16:00 98.4 88 25 117/50 (72) 97 12/18/19 16:00 30 12/18/19 15:15 30 12/18/19 15:12 88 22 30 30 12/18/19 15:00 89 15 103/43 (63) 97 12/18/19 14:00 77 15 106/76 (86) 97 12/18/19 13:00 76 20 110/41 (64) 100 12/18/19 12:00 98.6 15 113/47 (69) 98 12/18/19 12:00 30 12/18/19 12:00 76 12/18/19 12:00 Mechanical Ventilator 12/18/19 11:13 76 15 30 12/18/19 11:00 78 20 108/43 (64) 100 12/18/19 10:00 76 16 110/43 (65) 97 12/18/19 09:00 74 15 110/45 (66) 97 12/18/19 08:00 79 12/18/19 08:00 30 12/18/19 08:00 Mechanical Ventilator 12/18/19 08:00 99.1 76 15 110/42 (64) 96 12/18/19 07:20 96 12/18/19 07:19 86 18 30 12/18/19 07:00 75 15 103/43 (63) 97 12/18/19 06:30 78 15 12/18/19 06:00 76 14 103/54 (70) 97 12/18/19 05:00 74 15 98/50 (66) 98 12/18/19 04:00 30 12/18/19 04:00 Mechanical Ventilator 12/18/19 04:00 98.8 73 15 101/40 (60) 98 12/18/19 04:00 77 12/18/19 03:30 76 22 30 12/18/19 03:00 81 17 122/51 (74) 100 12/18/19 02:00 76 16 97/65 (76) 98 12/18/19 01:00 75 15 103/43 (63) 97 12/18/19 00:00 30 12/18/19 00:00 97.9 76 17 104/44 (64) 99 12/18/19 00:00 Mechanical Ventilator 12/18/19 00:00 76 12/17/19 23:19 80 21 30 12/17/19 23:00 78 19 111/46 (67) 99 Intake and Output 12/17/19 12/18/19 19:00 07:00 Intake Total 1167.8864 ml 1200 ml Output Total 620 ml 550 ml Balance 547.8864 ml 650 ml IV Total 867.8864 ml 500 ml Tube Feeding 250 ml 650 ml Other 50 ml 50 ml Output Urine Total 620 ml 550 ml Laboratory Tests 12/18/19 00:04: POC Whole Blood Glucose 97 12/18/19 04:00: White Blood Count 6.4, Red Blood Count 3.17L, Hemoglobin 10.2L, Hematocrit 33.2L , Mean Corpuscular Volume 105H, Mean Corpuscular Hemoglobin 32.1H, Mean Corpuscular Hemoglobin Concent 30.7L, Red Cell Distribution Width 13.5, Platelet Count 157, Mean Platelet Volume 6.8, Neutrophils (%) (Auto) 65.2, Lymphocytes (%) (Auto) 19.6L, Monocytes (%) (Auto) 10.3H, Eosinophils (%) (Auto ) 3.8H, Basophils (%) (Auto) 1.1, Sodium Level 148H, Potassium Level 4.3, Chloride Level 110H, Carbon Dioxide Level 31, Anion Gap 7, Blood Urea Nitrogen 24H, Creatinine 0.9, Estimat Glomerular Filtration Rate > 60, Glucose Level 89, Calcium Level 8.0L 12/18/19 06:05: POC Whole Blood Glucose [Pending] 12/18/19 20:21: Arterial Blood pH 7.046*L, Arterial Blood Partial Pressure CO2 141.7*H, Arterial Blood Partial Pressure O2 73.4L, Arterial Blood HCO3 38.0H, Arterial Blood Oxygen Saturation 87.0*L, Arterial Blood Base Excess 3.5H, Raphael Test Positive 12/18/19 21:58: Arterial Blood pH 7.422, Arterial Blood Partial Pressure CO2 47.0H, Arterial Blood Partial Pressure O2 119.8H, Arterial Blood HCO3 29.9H, Arterial Blood Oxygen Saturation 98.3, Arterial Blood Base Excess 4.8H, Raphael Test Positive Height (Feet): 5 Height (Inches): 7.00 Weight (Pounds): 210 Dani Perera MD Dec 18, 2019 22:19
--- NOTE | 2019-12-18 22:25 | Emergency Room Report ---
Physical Exam Vital Signs Date Time Temp Pulse Resp B/P (MAP) Pulse Ox O2 Delivery O2 Flow Rate FiO2 12/14/19 07:00 64 15 122/39 (66) 100 12/14/19 07:20 35 12/14/19 08:00 Endotracheal Tube 12/14/19 08:00 97.8 Medical Decision Making Diagnostic Impression: Primary Impression: Hypoxia Additional Impressions: Elevated d-dimer CHF (congestive heart failure) Qualified Codes: I50.9 - Heart failure, unspecified Encephalopathy Patient under investigation for COVID-19 ER Course Called to the ICU for reintubation of a patient who self extubated. This is an 79-year-old female admitted for respiratory distress. She self extubated several hours ago and has been hypoxic with worsening ABG since. The patient was reintubated by me under glide scope visualization with a 7.5 endotracheal tube secured at 24 cm at the lip. Intubation was performed using rocuronium and etomidate. No complications. Chest x-ray shows endotracheal tube tip above the du. Remainder of care per ICU team. Recall as needed. Chest X-Ray Diagnostic Results Chest X-Ray Diagnostic Results : Chest X-Ray Ordered: Yes # of Views/Limited/Complete: 1 View Indication: Other - Intubation EP Interpretation: Yes Interpretation: other - ET tube tip above the du Impression: Other - Endotracheal tube tip above the du Electronically Signed by: Electronically signed by Dr. Warren Patterson Last Vital Signs Date Time Temp Pulse Resp B/P (MAP) Pulse Ox O2 Delivery O2 Flow Rate FiO2 12/18/19 20:53 25 147/62 Mechanical Ventilator 100 12/18/19 20:45 109 12/18/19 19:54 100 12/18/19 16:00 98.4 Disposition: ADMITTED INPATIENT Condition: Critical Referrals: Dani Perera MD (PCP) Procedures Intubation Intubation : Consent: Emergent Intubation Method: orotracheal Tube Size (cm): 7.5 Medications: Rocuronium Breath Sounds after Intubation: equal Intubation Complications: no complications Post Intubation Xray: Yes Progress/Xray Impression: Endotracheal tube in place above the du Attempts: One Patient Tolerated: Well Complications: None Warren Patterson MD Dec 18, 2019 22:24
[2019-12-19] VITALS (47 sets, daily range): BP systolic 90–124; BP diastolic 36–99
[2019-12-19 05:04] LABS: BASOPHILS % (AUTO) 0.9 % (0.0-2.0); EOSINOPHILS % (AUTO) 2.6 % (0.0-3.0); HEMATOCRIT 30.8 % (37.0-47.0); HEMOGLOBIN 9.6 G/DL (12.0-16.0); LYMPHOCYTES % (AUTO) 15.4 % (20.0-45.0); MEAN CORPUSCULAR VOLUME 104 FL (80-99); MONOCYTES % (AUTO) 9.2 % (1.0-10.0); PLATELET COUNT 155 K/UL (150-450); RED BLOOD COUNT 2.97 M/UL (4.20-5.40); RED CELL DISTRIBUTION WIDTH 13.2 % (11.6-14.8); WHITE BLOOD COUNT 7.5 K/UL (4.8-10.8)
[2019-12-19] MEDS: NovoLOG Insulin Flexpen SUBQ SCH ×4 (05:24→23:40)
[2019-12-19 06:20] LABS: ALANINE AMINOTRANSFERASE 38 U/L (12-78); ALBUMIN/GLOBULIN RATIO 1.1 (1.0-2.7); ALKALINE PHOSPHATASE 36 U/L (46-116); ANION GAP 8 mmol/L (5-15); ASPARTATE AMINO TRANSFERASE 19 U/L (15-37); BILIRUBIN,TOTAL 0.8 MG/DL (0.2-1.0); BLOOD UREA NITROGEN 22 mg/dL (7-18); CALCIUM 8.3 MG/DL (8.5-10.1); CARBON DIOXIDE 31 MMOL/L (21-32); CHLORIDE 110 MMOL/L (98-107); POTASSIUM 4.4 MMOL/L (3.5-5.1); SODIUM 149 MMOL/L (136-145)
--- NOTE | 2019-12-19 06:36 | Hematology/Onc Progress Note ---
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 ( combination of moderate aortic regurgitation and severe mitral regurgitation) --> diuresis as per cards --> lasix last time # Severe ascending aortic dilatation --> per Dr Keke campbell # Hypertension # Parkinson disease # Hyperlipidemia # Hypothyroidism # Dementia # Obesity # Schizophrenia --> as per [facility] --> restraints # Dvt ppx lovenox sq/scd's 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 care and alexei Rn Subjective HEENT: Denies: no symptoms, eye pain, blurred vision, tearing, double vision, ear pain, ear discharge, nose pain, nose congestion, throat pain, throat swelling, mouth pain, mouth swelling, other Cardiovascular: Denies: no symptoms, chest pain, edema, irregular heart rate, lightheadedness, palpitations, syncope, other Respiratory: Denies: no symptoms, cough, shortness of breath, SOB with excertion, SOB at rest, sputum, wheezing, other Gastrointestinal/Abdominal: Denies: no symptoms, abdomen distended, abdominal pain, black stools, tarry stools, blood in stool, constipated, diarrhea, difficulty swallowing, nausea, poor appetite, poor fluid intake, rectal bleeding , vomiting, other Genitourinary: Denies: no symptoms, burning, discharge, frequency, flank pain, hematuria, incontinence, pain, urgency, other Allergies: Coded Allergies: LITHIUM (Verified Allergy, Unknown, 02/07/19) All Systems: reviewed and negative except above Subjective 12/12 labs are reviewed, intubated, with og, somewhat responsive, dw rn 12/13 labs noted, hgb 7.8, tfs ok to start per gi 12/15 icu, restraints, no acute events, hep panel negative, sedated 12/16 no bleeding, in the icu, on abx, in restarints, sleepy, vent 12/17 is on vent, also is on abx, awake, with ogt 7/8 ng placed, hgb 9.6, no bleeding, no night sweats Objective Objective Current Medications Medications (Trade) Dose Ordered Sig/Angie Route PRN Reason Start Time Stop Time Status Last Admin Dose Admin Acetaminophen (Tylenol) 650 mg Q6H PRN ORAL Mild Pain (Pain Scale 1-3) 12/12/19 12:30 01/11/20 12:29 Acetaminophen (Tylenol) 1,000 mg Q6H PRN ORAL MODERATE PAIN 12/12/19 12:30 01/11/20 12:29 Amantadine HCl (Symmetrel) 100 mg TWICE A DAY GT 12/15/19 18:00 01/11/20 08:59 12/18/19 17:44 Aspirin (Ecotrin) 325 mg DAILY ORAL 12/13/19 09:00 01/26/20 08:59 12/18/19 08:38 Atorvastatin Calcium (Lipitor) 10 mg BEDTIME GT 12/15/19 21:00 03/11/20 20:59 12/17/19 20:43 Calcium Carbonate (Os-Octavio) 1,250 mg THREE TIMES A DAY GT 12/15/19 18:00 03/11/20 09:59 12/18/19 17:44 Cefepime HCl 1 gm/ Dextrose 55 ml @ 110 mls/hr Q24H IVPB 12/12/19 16:00 12/25/19 15:59 12/18/19 16:25 Clonidine HCl (Catapres Tab) 0.1 mg Q6H PRN GT For high BP over 160 systolic 12/15/19 16:30 03/11/20 12:30 Dextrose (Dextrose 50%) 25 ml Q30M PRN IV Hypoglycemia 12/13/19 07:15 03/12/20 07:14 Dextrose (Dextrose 50%) 50 ml Q30M PRN IV Hypoglycemia 12/13/19 07:15 03/12/20 07:14 Divalproex Sodium (Depakote Sprinkles) 250 mg EVERY 12 HOURS NG 12/13/19 21:00 01/12/20 20:59 12/18/19 08:38 Docusate Sodium (Colace) 100 mg TWICE A DAY NG 12/15/19 18:00 01/14/20 17:59 12/18/19 17:43 Fentanyl Citrate 250 ml @ 0 mls/hr Q24H IV 12/18/19 20:53 03/17/20 20:52 12/18/19 20:53 Haloperidol Lactate 5 mg/ Dextrose 56 ml @ 224 mls/hr Q6H PRN IVPB agitation 12/18/19 10:45 02/01/20 10:44 Insulin Aspart (NovoLOG) EVERY 6 HOURS SUBQ 12/13/19 12:00 03/12/20 11:59 12/16/19 17:39 Levothyroxine Sodium (Synthroid) 75 mcg DAILY IV 12/13/19 09:00 01/11/20 09:29 12/18/19 08:38 Lorazepam (Ativan) 1 mg Q6H PRN GT For Anxiety 12/15/19 16:30 12/19/19 12:30 12/18/19 20:02 Nitroglycerin (Ntg) 0.4 mg Q5MIN X 3 DOSES PRN SL CHEST PAIN 12/12/19 12:00 01/10/20 21:44 Olanzapine (ZyPREXA) 5 mg BID GT 12/15/19 18:00 01/26/20 08:59 12/18/19 17:43 Pantoprazole (Protonix) 40 mg EVERY 12 HOURS IVP 12/14/19 09:00 01/13/20 08:59 12/18/19 21:43 Phosphorus (Phospha 250 Neutral) 250 mg THREE TIMES A DAY GT 12/15/19 09:00 01/14/20 08:59 12/18/19 17:43 Sodium Chloride 1,000 ml @ 50 mls/hr Q20H IV 12/12/19 12:30 01/11/20 12:29 12/19/19 04:38 Last 24 Hour Vital Signs Date Time Temp Pulse Resp B/P (MAP) Pulse Ox O2 Delivery O2 Flow Rate FiO2 12/19/19 06:00 74 24 94/36 (55) 100 12/19/19 05:30 73 24 94/39 (57) 100 12/19/19 05:00 74 24 106/38 (60) 100 12/19/19 04:30 76 24 97/44 (61) 100 12/19/19 04:00 73 12/19/19 04:00 23 124/43 Mechanical Ventilator 60.0 60 12/19/19 04:00 60 12/19/19 04:00 Mechanical Ventilator 12/19/19 04:00 98.6 78 23 98/44 (62) 97 12/19/19 03:30 73 24 98/44 (62) 96 12/19/19 03:09 73 24 60 12/19/19 03:00 24 114/41 Mechanical Ventilator 60.0 60 12/19/19 03:00 74 24 114/41 (65) 96 12/19/19 02:30 74 25 98/38 (58) 95 12/19/19 02:00 75 25 91/67 (75) 100 12/19/19 02:00 24 91/67 Mechanical Ventilator 60.0 60 12/19/19 01:30 23 97/51 Mechanical Ventilator 60.0 60 12/19/19 01:30 75 23 97/51 (66) 99 12/19/19 01:00 23 90/44 Mechanical Ventilator 60.0 60 12/19/19 01:00 76 25 90/44 (59) 99 12/19/19 00:45 23 94/59 Mechanical Ventilator 60.0 60 12/19/19 00:30 78 23 95/38 (57) 100 12/19/19 00:30 23 95/38 Mechanical Ventilator 60.0 60 12/19/19 00:15 21 106/78 Mechanical Ventilator 60.0 60 12/19/19 00:00 98.7 85 25 124/99 (107) 100 12/19/19 00:00 82 12/19/19 00:00 60 12/19/19 00:00 Mechanical Ventilator 12/19/19 00:00 21 124/99 Mechanical Ventilator 60.0 100 12/18/19 23:30 22 107/44 Mechanical Ventilator 60.0 100 12/18/19 23:30 82 22 107/46 (66) 100 12/18/19 23:13 81 26 60 12/18/19 23:00 23 107/46 Mechanical Ventilator 60.0 100 12/18/19 23:00 82 28 107/44 (65) 100 12/18/19 22:30 24 93/39 Non-Rebreather 60.0 100 12/18/19 22:30 86 24 93/39 (57) 100 12/18/19 22:26 80 12/18/19 22:00 98 28 113/50 (71) 93 12/18/19 22:00 24 97/40 Mechanical Ventilator 60.0 100 12/18/19 21:30 24 138/53 Mechanical Ventilator 60.0 100 12/18/19 21:30 105 24 138/53 (81) 93 12/18/19 21:15 26 133/52 Mechanical Ventilator 60.0 100 12/18/19 21:00 115 24 169/72 (104) 98 12/18/19 21:00 24 169/72 Mechanical Ventilator 60.0 100 12/18/19 20:53 25 147/62 Mechanical Ventilator 100 12/18/19 20:45 109 26 100 12/18/19 20:30 120 24 102/51 (68) 98 12/18/19 20:00 108 12/18/19 20:00 Mechanical Ventilator 12/18/19 20:00 98.5 129 24 130/78 (95) 99 12/18/19 20:00 30 12/18/19 19:54 108 20 100 100 12/18/19 19:35 Bi-pap 100 12/18/19 19:00 98 28 113/50 (71) 93 12/18/19 18:00 98 24 112/48 (69) 96 12/18/19 17:00 97 26 115/42 (66) 92 12/18/19 17:00 91 24 30 12/18/19 16:00 30 12/18/19 16:00 Mechanical Ventilator 12/18/19 16:00 76 12/18/19 16:00 98.4 88 25 117/50 (72) 97 12/18/19 16:00 30 12/18/19 15:15 30 12/18/19 15:12 88 22 30 30 12/18/19 15:00 89 15 103/43 (63) 97 12/18/19 14:00 77 15 106/76 (86) 97 12/18/19 13:00 76 20 110/41 (64) 100 12/18/19 12:00 98.6 15 113/47 (69) 98 12/18/19 12:00 30 12/18/19 12:00 76 12/18/19 12:00 Mechanical Ventilator 12/18/19 11:13 76 15 30 12/18/19 11:00 78 20 108/43 (64) 100 12/18/19 10:00 76 16 110/43 (65) 97 12/18/19 09:00 74 15 110/45 (66) 97 12/18/19 08:00 79 12/18/19 08:00 30 12/18/19 08:00 Mechanical Ventilator 12/18/19 08:00 99.1 76 15 110/42 (64) 96 12/18/19 07:20 96 12/18/19 07:19 86 18 30 12/18/19 07:00 75 15 103/43 (63) 97 12/18/19 06:30 78 15 12/18/19 06:00 76 14 103/54 (70) 97 12/18/19 05:00 74 15 98/50 (66) 98 12/18/19 04:00 30 12/18/19 04:00 Mechanical Ventilator 12/18/19 04:00 98.8 73 15 101/40 (60) 98 12/18/19 04:00 77 12/18/19 03:30 76 22 30 12/18/19 03:00 81 17 122/51 (74) 100 12/18/19 02:00 76 16 97/65 (76) 98 12/18/19 01:00 75 15 103/43 (63) 97 12/18/19 00:00 30 12/18/19 00:00 97.9 76 17 104/44 (64) 99 12/18/19 00:00 Mechanical Ventilator 12/18/19 00:00 76 12/17/19 23:19 80 21 30 12/17/19 23:00 78 19 111/46 (67) 99 12/17/19 22:00 76 16 104/40 (61) 97 12/17/19 21:00 77 16 102/40 (60) 97 12/17/19 20:00 98.4 78 21 107/45 (65) 97 12/17/19 20:00 30 12/17/19 20:00 77 12/17/19 20:00 Mechanical Ventilator 12/17/19 19:30 77 16 30 12/17/19 19:00 76 15 104/41 (62) 97 12/17/19 18:00 78 18 105/46 (65) 96 12/17/19 17:00 79 18 101/36 (57) 96 12/17/19 17:00 79 15 101/36 (57) 95 12/17/19 16:00 Mechanical Ventilator 12/17/19 16:00 83 17 100/45 (63) 96 12/17/19 16:00 83 12/17/19 16:00 30 12/17/19 15:42 88 19 30 12/17/19 15:00 94 19 104/56 (72) 95 12/17/19 14:00 102 17 105/54 (71) 95 12/17/19 13:00 115 18 104/59 (74) 90 12/17/19 12:34 150 25 139/75 (96) 100 12/17/19 12:18 40 14 107/59 (75) 12/17/19 12:15 72 15 100 12/17/19 12:00 98.9 93 26 123/96 (105) 98 12/17/19 12:00 35 12/17/19 12:00 Mechanical Ventilator 12/17/19 12:00 108 12/17/19 11:35 82 20 28 12/17/19 11:00 79 22 127/50 (75) 96 12/17/19 10:00 78 19 119/52 (74) 97 12/17/19 09:18 73 20 28 28 12/17/19 09:18 99 12/17/19 09:00 74 15 118/59 (78) 100 12/17/19 08:00 28 12/17/19 08:00 80 12/17/19 08:00 97.8 81 18 109/42 (64) 96 12/17/19 08:00 Mechanical Ventilator 12/17/19 07:14 77 16 28 12/17/19 07:00 74 15 116/42 (66) 97 Intake and Output 12/18/19 12/19/19 19:00 07:00 Intake Total 1285 ml 897 ml Output Total 810 ml 380 ml Balance 475 ml 517 ml Intake Free Water 30 ml IV Total 655 ml 447 ml Tube Feeding 600 ml 450 ml Output Urine Total 810 ml 380 ml Labs Test 12/16/19 09:52 12/16/19 12:09 12/16/19 17:09 12/16/19 23:23 Arterial Blood pH 7.428 (7.350-7.450) Arterial Blood Partial Pressure CO2 50.8 mmHg (35.0-45.0) Arterial Blood Partial Pressure O2 90.5 mmHg (75.0-100.0) Arterial Blood HCO3 32.8 mmol/L (22.0-26.0) Arterial Blood Oxygen Saturation 96.6 % (95-100) Arterial Blood Base Excess 7.3 (-2-2) Raphael Test Positive POC Whole Blood Glucose 131 MG/DL (74-106) 142 MG/DL (74-106) Test 12/17/19 04:49 12/17/19 05:42 12/17/19 07:28 12/17/19 11:41 POC Whole Blood Glucose 123 MG/DL (74-106) 117 MG/DL (74-106) White Blood Count 5.9 K/UL (4.8-10.8) Red Blood Count 3.34 M/UL (4.20-5.40) Hemoglobin 10.8 G/DL (12.0-16.0) Hematocrit 34.5 % (37.0-47.0) Mean Corpuscular Volume 103 FL (80-99) Mean Corpuscular Hemoglobin 32.2 PG (27.0-31.0) Mean Corpuscular Hemoglobin Concent 31.2 G/DL (32.0-36.0) Red Cell Distribution Width 13.6 % (11.6-14.8) Platelet Count 168 K/UL (150-450) Mean Platelet Volume 7.1 FL (6.5-10.1) Neutrophils (%) (Auto) 62.3 % (45.0-75.0) Lymphocytes (%) (Auto) 22.3 % (20.0-45.0) Monocytes (%) (Auto) 9.8 % (1.0-10.0) Eosinophils (%) (Auto) 4.5 % (0.0-3.0) Basophils (%) (Auto) 1.1 % (0.0-2.0) Sodium Level 146 MMOL/L (136-145) Potassium Level 4.2 MMOL/L (3.5-5.1) Chloride Level 106 MMOL/L (98-107) Carbon Dioxide Level 36 MMOL/L (21-32) Anion Gap 4 mmol/L (5-15) Blood Urea Nitrogen 25 mg/dL (7-18) Creatinine 0.9 MG/DL (0.55-1.30) Estimat Glomerular Filtration Rate > 60 mL/min (>60) Glucose Level 118 MG/DL (74-106) Calcium Level 8.0 MG/DL (8.5-10.1) Phosphorus Level 2.2 MG/DL (2.5-4.9) Magnesium Level 1.9 MG/DL (1.8-2.4) Total Bilirubin 0.5 MG/DL (0.2-1.0) Aspartate Amino Transf (AST/SGOT) 18 U/L (15-37) Alanine Aminotransferase (ALT/SGPT) 54 U/L (12-78) Alkaline Phosphatase 43 U/L (46-116) Total Protein 6.3 G/DL (6.4-8.2) Albumin 3.1 G/DL (3.4-5.0) Globulin 3.2 g/dL Albumin/Globulin Ratio 1.0 (1.0-2.7) Arterial Blood pH 7.421 (7.350-7.450) Arterial Blood Partial Pressure CO2 53.2 mmHg (35.0-45.0) Arterial Blood Partial Pressure O2 71.3 mmHg (75.0-100.0) Arterial Blood HCO3 33.8 mmol/L (22.0-26.0) Arterial Blood Oxygen Saturation 93.7 % (95-100) Arterial Blood Base Excess 8.0 (-2-2) Raphael Test Positive Test 12/17/19 12:10 12/17/19 17:13 12/18/19 00:04 12/18/19 04:00 Arterial Blood pH 7.316 (7.350-7.450) Arterial Blood Partial Pressure CO2 74.0 mmHg (35.0-45.0) Arterial Blood Partial Pressure O2 62.2 mmHg (75.0-100.0) Arterial Blood HCO3 36.9 mmol/L (22.0-26.0) Arterial Blood Oxygen Saturation 89.0 % (95-100) Arterial Blood Base Excess 8.5 (-2-2) Raphael Test Positive POC Whole Blood Glucose 98 MG/DL (74-106) 97 MG/DL (74-106) White Blood Count 6.4 K/UL (4.8-10.8) Red Blood Count 3.17 M/UL (4.20-5.40) Hemoglobin 10.2 G/DL (12.0-16.0) Hematocrit 33.2 % (37.0-47.0) Mean Corpuscular Volume 105 FL (80-99) Mean Corpuscular Hemoglobin 32.1 PG (27.0-31.0) Mean Corpuscular Hemoglobin Concent 30.7 G/DL (32.0-36.0) Red Cell Distribution Width 13.5 % (11.6-14.8) Platelet Count 157 K/UL (150-450) Mean Platelet Volume 6.8 FL (6.5-10.1) Neutrophils (%) (Auto) 65.2 % (45.0-75.0) Lymphocytes (%) (Auto) 19.6 % (20.0-45.0) Monocytes (%) (Auto) 10.3 % (1.0-10.0) Eosinophils (%) (Auto) 3.8 % (0.0-3.0) Basophils (%) (Auto) 1.1 % (0.0-2.0) Sodium Level 148 MMOL/L (136-145) Potassium Level 4.3 MMOL/L (3.5-5.1) Chloride Level 110 MMOL/L (98-107) Carbon Dioxide Level 31 MMOL/L (21-32) Anion Gap 7 mmol/L (5-15) Blood Urea Nitrogen 24 mg/dL (7-18) Creatinine 0.9 MG/DL (0.55-1.30) Estimat Glomerular Filtration Rate > 60 mL/min (>60) Glucose Level 89 MG/DL (74-106) Calcium Level 8.0 MG/DL (8.5-10.1) Test 12/18/19 06:05 12/18/19 20:21 12/18/19 21:58 12/18/19 23:38 Arterial Blood pH 7.046 (7.350-7.450) 7.422 (7.350-7.450) Arterial Blood Partial Pressure CO2 141.7 mmHg (35.0-45.0) 47.0 mmHg (35.0-45.0) Arterial Blood Partial Pressure O2 73.4 mmHg (75.0-100.0) 119.8 mmHg (75.0-100.0) Arterial Blood HCO3 38.0 mmol/L (22.0-26.0) 29.9 mmol/L (22.0-26.0) Arterial Blood Oxygen Saturation 87.0 % (95-100) 98.3 % (95-100) Arterial Blood Base Excess 3.5 (-2-2) 4.8 (-2-2) Raphael Test Positive Positive Test 12/19/19 03:00 12/19/19 05:24 White Blood Count 7.5 K/UL (4.8-10.8) Red Blood Count 2.97 M/UL (4.20-5.40) Hemoglobin 9.6 G/DL (12.0-16.0) Hematocrit 30.8 % (37.0-47.0) Mean Corpuscular Volume 104 FL (80-99) Mean Corpuscular Hemoglobin 32.1 PG (27.0-31.0) Mean Corpuscular Hemoglobin Concent 31.1 G/DL (32.0-36.0) Red Cell Distribution Width 13.2 % (11.6-14.8) Platelet Count 155 K/UL (150-450) Mean Platelet Volume 6.2 FL (6.5-10.1) Neutrophils (%) (Auto) 72.0 % (45.0-75.0) Lymphocytes (%) (Auto) 15.4 % (20.0-45.0) Monocytes (%) (Auto) 9.2 % (1.0-10.0) Eosinophils (%) (Auto) 2.6 % (0.0-3.0) Basophils (%) (Auto) 0.9 % (0.0-2.0) Sodium Level 149 MMOL/L (136-145) Potassium Level 4.4 MMOL/L (3.5-5.1) Chloride Level 110 MMOL/L (98-107) Carbon Dioxide Level 31 MMOL/L (21-32) Anion Gap 8 mmol/L (5-15) Blood Urea Nitrogen 22 mg/dL (7-18) Creatinine 1.0 MG/DL (0.55-1.30) Estimat Glomerular Filtration Rate 53.3 mL/min (>60) Glucose Level 82 MG/DL (74-106) Calcium Level 8.3 MG/DL (8.5-10.1) Total Bilirubin 0.8 MG/DL (0.2-1.0) Aspartate Amino Transf (AST/SGOT) 19 U/L (15-37) Alanine Aminotransferase (ALT/SGPT) 38 U/L (12-78) Alkaline Phosphatase 36 U/L (46-116) Total Protein 5.8 G/DL (6.4-8.2) Albumin 3.0 G/DL (3.4-5.0) Globulin 2.8 g/dL Albumin/Globulin Ratio 1.1 (1.0-2.7) Height (Feet): 5 Height (Inches): 7.00 Weight (Pounds): 210 Objective Vitals: reviewed General: NAD HEENT: nc, at ++ogt Neck: supple ++intubated Chest: decreased breath sounds bilaterally Cardiovascular: RRR, no s3, s4 Abdomen: soft, nontender, nd Extremities: 1-2 + edema, scd's Neuro: nonverbal : Frank Kelly MD Dec 19, 2019 06:36
--- NOTE | 2019-12-19 06:38 | General Progress Note ---
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 - Other specified diabetes mellitus without complications SNOMED: 526480309 (2) Parkinson disease ICD Codes: G20 - Parkinson's disease SNOMED: 01377072 (3) Schizophrenia ICD Codes: F20.9 - Schizophrenia, unspecified SNOMED: 96315828 (4) Hypertension ICD Codes: I10 - Essential (primary) hypertension SNOMED: 86935115 (5) Respiratory failure ICD Codes: J96.90 - Respiratory failure, unspecified, unspecified whether with hypoxia or hypercapnia SNOMED: 355854359 (6) Hypothyroidism ICD Codes: E03.9 - Hypothyroidism, unspecified SNOMED: 16389054 Status: progressing Assessment/Plan: continue Levothyroxine 75 mcg IV daily continue Novolog sliding scale every 6 hours hypoglycemia protocol in order Subjective ROS Limited/Unobtainable: Yes Allergies: Coded Allergies: LITHIUM (Verified Allergy, Unknown, 02/07/19) Subjective events noted re intubated in icu glucose values are stable Item Value Date Time Bedside Blood Glucose 96 mg/dl 12/19/19 0600 Bedside Blood Glucose 107 mg/dl 12/19/19 0000 Bedside Blood Glucose 133 mg/dl H 12/18/19 1750 Bedside Blood Glucose 120 mg/dl 12/18/19 1200 Bedside Blood Glucose 101 mg/dl 12/18/19 0600 Bedside Blood Glucose 97 mg/dl 12/18/19 0000 Objective Last 24 Hour Vital Signs Date Time Temp Pulse Resp B/P (MAP) Pulse Ox O2 Delivery O2 Flow Rate FiO2 12/19/19 06:00 74 24 94/36 (55) 100 12/19/19 05:30 73 24 94/39 (57) 100 12/19/19 05:00 74 24 106/38 (60) 100 12/19/19 04:30 76 24 97/44 (61) 100 12/19/19 04:00 73 12/19/19 04:00 23 124/43 Mechanical Ventilator 60.0 60 12/19/19 04:00 60 12/19/19 04:00 Mechanical Ventilator 12/19/19 04:00 98.6 78 23 98/44 (62) 97 12/19/19 03:30 73 24 98/44 (62) 96 12/19/19 03:09 73 24 60 12/19/19 03:00 24 114/41 Mechanical Ventilator 60.0 60 12/19/19 03:00 74 24 114/41 (65) 96 12/19/19 02:30 74 25 98/38 (58) 95 12/19/19 02:00 75 25 91/67 (75) 100 12/19/19 02:00 24 91/67 Mechanical Ventilator 60.0 60 12/19/19 01:30 23 97/51 Mechanical Ventilator 60.0 60 12/19/19 01:30 75 23 97/51 (66) 99 12/19/19 01:00 23 90/44 Mechanical Ventilator 60.0 60 12/19/19 01:00 76 25 90/44 (59) 99 12/19/19 00:45 23 94/59 Mechanical Ventilator 60.0 60 12/19/19 00:30 78 23 95/38 (57) 100 12/19/19 00:30 23 95/38 Mechanical Ventilator 60.0 60 12/19/19 00:15 21 106/78 Mechanical Ventilator 60.0 60 12/19/19 00:00 98.7 85 25 124/99 (107) 100 12/19/19 00:00 82 12/19/19 00:00 60 12/19/19 00:00 Mechanical Ventilator 12/19/19 00:00 21 124/99 Mechanical Ventilator 60.0 100 12/18/19 23:30 22 107/44 Mechanical Ventilator 60.0 100 12/18/19 23:30 82 22 107/46 (66) 100 12/18/19 23:13 81 26 60 12/18/19 23:00 23 107/46 Mechanical Ventilator 60.0 100 12/18/19 23:00 82 28 107/44 (65) 100 12/18/19 22:30 24 93/39 Non-Rebreather 60.0 100 12/18/19 22:30 86 24 93/39 (57) 100 12/18/19 22:26 80 12/18/19 22:00 98 28 113/50 (71) 93 12/18/19 22:00 24 97/40 Mechanical Ventilator 60.0 100 12/18/19 21:30 24 138/53 Mechanical Ventilator 60.0 100 12/18/19 21:30 105 24 138/53 (81) 93 12/18/19 21:15 26 133/52 Mechanical Ventilator 60.0 100 12/18/19 21:00 115 24 169/72 (104) 98 12/18/19 21:00 24 169/72 Mechanical Ventilator 60.0 100 12/18/19 20:53 25 147/62 Mechanical Ventilator 100 12/18/19 20:45 109 26 100 12/18/19 20:30 120 24 102/51 (68) 98 12/18/19 20:00 108 12/18/19 20:00 Mechanical Ventilator 12/18/19 20:00 98.5 129 24 130/78 (95) 99 12/18/19 20:00 30 12/18/19 19:54 108 20 100 100 12/18/19 19:35 Bi-pap 100 12/18/19 19:00 98 28 113/50 (71) 93 12/18/19 18:00 98 24 112/48 (69) 96 12/18/19 17:00 97 26 115/42 (66) 92 12/18/19 17:00 91 24 30 12/18/19 16:00 30 12/18/19 16:00 Mechanical Ventilator 12/18/19 16:00 76 12/18/19 16:00 98.4 88 25 117/50 (72) 97 12/18/19 16:00 30 12/18/19 15:15 30 12/18/19 15:12 88 22 30 30 12/18/19 15:00 89 15 103/43 (63) 97 12/18/19 14:00 77 15 106/76 (86) 97 12/18/19 13:00 76 20 110/41 (64) 100 12/18/19 12:00 98.6 15 113/47 (69) 98 12/18/19 12:00 30 12/18/19 12:00 76 12/18/19 12:00 Mechanical Ventilator 12/18/19 11:13 76 15 30 12/18/19 11:00 78 20 108/43 (64) 100 12/18/19 10:00 76 16 110/43 (65) 97 12/18/19 09:00 74 15 110/45 (66) 97 12/18/19 08:00 79 12/18/19 08:00 30 12/18/19 08:00 Mechanical Ventilator 12/18/19 08:00 99.1 76 15 110/42 (64) 96 7/7/20 07:20 96 12/18/19 07:19 86 18 30 12/18/19 07:00 75 15 103/43 (63) 97 Intake and Output 12/18/19 12/19/19 19:00 07:00 Intake Total 1285 ml 897 ml Output Total 810 ml 380 ml Balance 475 ml 517 ml Intake Free Water 30 ml IV Total 655 ml 447 ml Tube Feeding 600 ml 450 ml Output Urine Total 810 ml 380 ml Laboratory Tests 12/18/19 20:21: Arterial Blood pH 7.046*L, Arterial Blood Partial Pressure CO2 141.7*H, Arterial Blood Partial Pressure O2 73.4L, Arterial Blood HCO3 38.0H, Arterial Blood Oxygen Saturation 87.0*L, Arterial Blood Base Excess 3.5H, Raphael Test Positive 12/18/19 21:58: Arterial Blood pH 7.422, Arterial Blood Partial Pressure CO2 47.0H, Arterial Blood Partial Pressure O2 119.8H, Arterial Blood HCO3 29.9H, Arterial Blood Oxygen Saturation 98.3, Arterial Blood Base Excess 4.8H, Raphael Test Positive 12/18/19 23:38: POC Whole Blood Glucose [Pending] 12/19/19 03:00: White Blood Count 7.5, Red Blood Count 2.97L, Hemoglobin 9.6L, Hematocrit 30.8L , Mean Corpuscular Volume 104H, Mean Corpuscular Hemoglobin 32.1H, Mean Corpuscular Hemoglobin Concent 31.1L, Red Cell Distribution Width 13.2, Platelet Count 155, Mean Platelet Volume 6.2L, Neutrophils (%) (Auto) 72.0, Lymphocytes (%) (Auto) 15.4L, Monocytes (%) (Auto) 9.2, Eosinophils (%) (Auto) 2.6, Basophils (%) (Auto) 0.9, Sodium Level 149H, Potassium Level 4.4, Chloride Level 110H, Carbon Dioxide Level 31, Anion Gap 8, Blood Urea Nitrogen 22H, Creatinine 1.0, Estimat Glomerular Filtration Rate 53.3, Glucose Level 82, Calcium Level 8.3L, Total Bilirubin 0.8, Aspartate Amino Transf (AST/SGOT) 19, Alanine Aminotransferase (ALT/SGPT) 38, Alkaline Phosphatase 36L, Total Protein 5.8L, Albumin 3.0L, Globulin 2.8, Albumin/Globulin Ratio 1.1 12/19/19 05:24: POC Whole Blood Glucose [Pending] Height (Feet): 5 Height (Inches): 7.00 Weight (Pounds): 210 General Appearance: other - intubated EENT: other - ETT / NGT Cardiovascular: normal rate Respiratory/Chest: decreased breath sounds Abdomen: normal bowel sounds Objective Current Medications Medications (Trade) Dose Ordered Sig/Angie Route PRN Reason Start Time Stop Time Status Last Admin Dose Admin Acetaminophen (Tylenol) 650 mg Q6H PRN ORAL Mild Pain (Pain Scale 1-3) 12/12/19 12:30 01/11/20 12:29 Acetaminophen (Tylenol) 1,000 mg Q6H PRN ORAL MODERATE PAIN 12/12/19 12:30 01/11/20 12:29 Amantadine HCl (Symmetrel) 100 mg TWICE A DAY GT 12/15/19 18:00 01/11/20 08:59 12/18/19 17:44 Aspirin (Ecotrin) 325 mg DAILY ORAL 12/13/19 09:00 01/26/20 08:59 12/18/19 08:38 Atorvastatin Calcium (Lipitor) 10 mg BEDTIME GT 12/15/19 21:00 03/11/20 20:59 12/17/19 20:43 Calcium Carbonate (Os-Octavio) 1,250 mg THREE TIMES A DAY GT 12/15/19 18:00 03/11/20 09:59 12/18/19 17:44 Cefepime HCl 1 gm/ Dextrose 55 ml @ 110 mls/hr Q24H IVPB 12/12/19 16:00 12/25/19 15:59 12/18/19 16:25 Clonidine HCl (Catapres Tab) 0.1 mg Q6H PRN GT For high BP over 160 systolic 12/15/19 16:30 03/11/20 12:30 Dextrose (Dextrose 50%) 25 ml Q30M PRN IV Hypoglycemia 12/13/19 07:15 03/12/20 07:14 Dextrose (Dextrose 50%) 50 ml Q30M PRN IV Hypoglycemia 12/13/19 07:15 03/12/20 07:14 Divalproex Sodium (Depakote Sprinkles) 250 mg EVERY 12 HOURS NG 12/13/19 21:00 01/12/20 20:59 12/18/19 08:38 Docusate Sodium (Colace) 100 mg TWICE A DAY NG 12/15/19 18:00 01/14/20 17:59 12/18/19 17:43 Fentanyl Citrate 250 ml @ 0 mls/hr Q24H IV 12/18/19 20:53 03/17/20 20:52 12/18/19 20:53 Haloperidol Lactate 5 mg/ Dextrose 56 ml @ 224 mls/hr Q6H PRN IVPB agitation 12/18/19 10:45 02/01/20 10:44 Insulin Aspart (NovoLOG) EVERY 6 HOURS SUBQ 12/13/19 12:00 03/12/20 11:59 12/16/19 17:39 Levothyroxine Sodium (Synthroid) 75 mcg DAILY IV 12/13/19 09:00 01/11/20 09:29 12/18/19 08:38 Lorazepam (Ativan) 1 mg Q6H PRN GT For Anxiety 12/15/19 16:30 12/19/19 12:30 12/18/19 20:02 Nitroglycerin (Ntg) 0.4 mg Q5MIN X 3 DOSES PRN SL CHEST PAIN 12/12/19 12:00 01/10/20 21:44 Olanzapine (ZyPREXA) 5 mg BID GT 12/15/19 18:00 01/26/20 08:59 12/18/19 17:43 Pantoprazole (Protonix) 40 mg EVERY 12 HOURS IVP 12/14/19 09:00 01/13/20 08:59 12/18/19 21:43 Phosphorus (Phospha 250 Neutral) 250 mg THREE TIMES A DAY GT 12/15/19 09:00 01/14/20 08:59 12/18/19 17:43 Sodium Chloride 1,000 ml @ 50 mls/hr Q20H IV 12/12/19 12:30 01/11/20 12:29 12/19/19 04:38 Jabari Adams MD Dec 19, 2019 06:38
--- NOTE | 2019-12-19 07:20 | NUR ---
NURSE NOTES: Pt received from Miguel Rangel RN. Pt is sedated, arousable when called by name, observed making eye contact for approx 5-6 sec, RASS noted -2. Bilat pupils equal and round (3 mm) with sluggish light rxn. Pt is SR with 1st degree AVB to drycleaner. bilateral radial and dorsalis pedis pulses 2+. Bilateral hands noted with non-pitting edema. Pt is mechanically ventilated with 7.5 ETT noted 24 cm at lip line with the following settings: AC 15 TV 450 FiO2 60% Peep 5. SpO2 noted 99%. All lung lobes noted diminished upon auscultation. Abd is round, soft, and non-tender with hypoactive bowel sounds to all quadrants. OGT noted running Vital AF 1.2 at 50 cc/hr without gastric residuals at this time. F/C noted draining yellow urine. Skin alterations noted. Pt has a LFA 22 g IV running Fentanyl at 100 mcg/hr and a RW 22g IV running NS at 50 cc/hr. Pt is on SHOE POLISHER restraints, radial pulses palpable, skin to both wrists intact without redness or swelling. Bed in lowest position with alarm on, side rails up x 3, call light within reach. Will continue to monitor. Addendum: 12/19/19 at 0847 by Yessy Terry RN Amendment: ETT noted 25 cm at the lip (not 24 cm) Addendum: 12/19/19 at 0926 by Yessy Terry RN Late entry: Bilateral arms also noted with non-pitting edema Addendum: 12/19/19 at 1034 by Yessy Terry RN Amendment: vent settings noted AC 24 - set by ER physician during intubation (not AC 15)- will clarify with Dr Myers.
--- NOTE | 2019-12-19 07:20 | NUR ---
HAND-OFF: Report given to Rochelle ROJO. Pt remains stable.
--- NOTE | 2019-12-19 07:55 | NUR ---
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 CURRENT TF:Vital 1.2 @50 (PO DIET RECOMMENDATIONS: COAL CHEMIST eval post extubation) ENTERAL NUTRITION RECOMMENDATIONS: Vital AF 1.2 @ 50ml/hr x 24 hrs to provide 1200ml, 1440kcal, 90g prot, 973ml free water * As medically appropriate, initiate Vital AF 1.2 @ 20ml/hr x 6hrs * Advance 10ml q 4-6 hrs as tolerated to goal * HOB over 30 degrees/ water flush per MD If IV Synthroid changes to Synthroid via OGT, hold 1 hr before and after Synthroid med -> Vital AF 1.2 @ 55ml/hr x 22 hrs to provide 1210ml, 1452kcal, 91g prot ADDITIONAL RECOMMENDATIONS: * Per SNF: HT=68" RB=112qdb (12/04/19) * Monitor lytes w/ TF, replete as needed * NISS w/ TF- h/o DM, A1C 6.4, now on bedside BG checks per endo * Monitor HD stability: without pressor support at this time * Skin integrity: f/up w/ WC eval-> add ELIAS BID via NGT TF @ goal will provide 100% RDI * Increase water flushes (Na and BUN trending up)
[2019-12-19] MEDS ORDERED: LORazepam 1mg tab GT PRN (08:45)
[2019-12-19] MEDS: Phospha 250 Neutral tab GT SCH ×3 (08:48→17:13)
[2019-12-19] MEDS: Aspirin EC 325mg tab ORAL SCH (08:48)
[2019-12-19] MEDS: Amantadine 100mg cap GT SCH ×2 (08:48→17:12)
[2019-12-19] MEDS: Os-Cal (Oyster Shell) 500mg tab GT SCH ×3 (08:48→17:13)
[2019-12-19] MEDS: Docusate 100mg/10ml Liq NG SCH ×2 (08:48→17:12)
[2019-12-19] MEDS: Depakote 125mg Sprinkles NG SCH ×2 (08:49→20:54)
[2019-12-19] MEDS: Pantoprazole Inj IVP SCH ×2 (08:50→20:54)
--- NOTE | 2019-12-19 10:00 | NUR ---
NURSE NOTES: Pt repositioned and assessed by Dr Myers at bedside- ABG results for today also reviewed- vent settings clarified.
--- NOTE | 2019-12-19 10:15 | NUR ---
NURSE NOTES: Per Dr Myers, delay weaning trial to tomorrow morning. Raiza RT notified.
--- NOTE | 2019-12-19 10:16 | Pulmonology Progress Note ---
Subjective ROS Limited/Unobtainable: Yes Interval Events: Self extubated yesterday but failed to oxygenate on NRBM; re- intubated Constitutional: Reports: no symptoms, fever HEENT: Repors: no symptoms Respiratory: Reports: no symptoms Cardiovascular: Reports: no symptoms Gastrointestinal/Abdominal: Reports: no symptoms Genitourinary: Reports: no symptoms Allergies: Coded Allergies: LITHIUM (Verified Allergy, Unknown, 02/07/19) All Systems: reviewed and negative except above Objective Last 24 Hour Vital Signs Date Time Temp Pulse Resp B/P (MAP) Pulse Ox O2 Delivery O2 Flow Rate FiO2 12/19/19 09:00 24 104/37 Mechanical Ventilator 50 12/19/19 09:00 67 24 104/37 (59) 99 12/19/19 08:46 50 12/19/19 08:30 68 24 99/38 (58) 100 12/19/19 08:00 99.1 70 24 95/36 (55) 99 12/19/19 08:00 Mechanical Ventilator 12/19/19 08:00 24 95/36 Mechanical Ventilator 60 12/19/19 08:00 60 12/19/19 08:00 70 12/19/19 07:30 71 24 94/37 (56) 100 12/19/19 07:05 68 24 60 12/19/19 07:00 70 24 95/37 (56) 100 12/19/19 07:00 24 95/37 Mechanical Ventilator 60 12/19/19 06:30 89 24 12/19/19 06:30 24 96/38 Mechanical Ventilator 60.0 60 12/19/19 06:30 72 24 96/38 (57) 100 12/19/19 06:00 74 24 94/36 (55) 100 12/19/19 06:00 24 94/36 Mechanical Ventilator 60.0 60 12/19/19 05:30 73 24 94/39 (57) 100 12/19/19 05:30 24 94/39 Mechanical Ventilator 60.0 60 12/19/19 05:00 74 24 106/38 (60) 100 12/19/19 05:00 24 106/38 Mechanical Ventilator 60.0 60 12/19/19 04:30 76 24 97/44 (61) 100 12/19/19 04:00 73 12/19/19 04:00 23 124/43 Mechanical Ventilator 60.0 60 12/19/19 04:00 60 12/19/19 04:00 Mechanical Ventilator 12/19/19 04:00 98.6 78 23 98/44 (62) 97 12/19/19 03:30 73 24 98/44 (62) 96 12/19/19 03:09 73 24 60 12/19/19 03:00 24 114/41 Mechanical Ventilator 60.0 60 12/19/19 03:00 74 24 114/41 (65) 96 12/19/19 02:30 74 25 98/38 (58) 95 12/19/19 02:00 75 25 91/67 (75) 100 12/19/19 02:00 24 91/67 Mechanical Ventilator 60.0 60 12/19/19 01:30 23 97/51 Mechanical Ventilator 60.0 60 12/19/19 01:30 75 23 97/51 (66) 99 12/19/19 01:00 23 90/44 Mechanical Ventilator 60.0 60 12/19/19 01:00 76 25 90/44 (59) 99 12/19/19 00:45 23 94/59 Mechanical Ventilator 60.0 60 12/19/19 00:30 78 23 95/38 (57) 100 12/19/19 00:30 23 95/38 Mechanical Ventilator 60.0 60 12/19/19 00:15 21 106/78 Mechanical Ventilator 60.0 60 12/19/19 00:00 98.7 85 25 124/99 (107) 100 12/19/19 00:00 82 12/19/19 00:00 60 12/19/19 00:00 Mechanical Ventilator 12/19/19 00:00 21 124/99 Mechanical Ventilator 60.0 100 12/18/19 23:30 22 107/44 Mechanical Ventilator 60.0 100 12/18/19 23:30 82 22 107/46 (66) 100 12/18/19 23:13 81 26 60 12/18/19 23:00 23 107/46 Mechanical Ventilator 60.0 100 12/18/19 23:00 82 28 107/44 (65) 100 12/18/19 22:30 24 93/39 Non-Rebreather 60.0 100 12/18/19 22:30 86 24 93/39 (57) 100 12/18/19 22:26 80 12/18/19 22:00 98 28 113/50 (71) 93 12/18/19 22:00 24 97/40 Mechanical Ventilator 60.0 100 12/18/19 21:30 24 138/53 Mechanical Ventilator 60.0 100 12/18/19 21:30 105 24 138/53 (81) 93 12/18/19 21:15 26 133/52 Mechanical Ventilator 60.0 100 12/18/19 21:00 115 24 169/72 (104) 98 12/18/19 21:00 24 169/72 Mechanical Ventilator 60.0 100 12/18/19 20:53 25 147/62 Mechanical Ventilator 100 12/18/19 20:45 109 26 100 12/18/19 20:30 120 24 102/51 (68) 98 12/18/19 20:00 108 12/18/19 20:00 Mechanical Ventilator 12/18/19 20:00 98.5 129 24 130/78 (95) 99 12/18/19 20:00 30 12/18/19 19:54 108 20 100 100 12/18/19 19:35 Bi-pap 100 12/18/19 19:00 98 28 113/50 (71) 93 12/18/19 18:00 98 24 112/48 (69) 96 12/18/19 17:00 97 26 115/42 (66) 92 12/18/19 17:00 91 24 30 12/18/19 16:00 30 12/18/19 16:00 Mechanical Ventilator 12/18/19 16:00 76 12/18/19 16:00 98.4 88 25 117/50 (72) 97 12/18/19 16:00 30 12/18/19 15:15 30 12/18/19 15:12 88 22 30 30 12/18/19 15:00 89 15 103/43 (63) 97 12/18/19 14:00 77 15 106/76 (86) 97 12/18/19 13:00 76 20 110/41 (64) 100 12/18/19 12:00 98.6 15 113/47 (69) 98 12/18/19 12:00 30 12/18/19 12:00 76 12/18/19 12:00 Mechanical Ventilator 12/18/19 11:13 76 15 30 12/18/19 11:00 78 20 108/43 (64) 100 Intake and Output 12/18/19 12/19/19 19:00 07:00 Intake Total 1285 ml 1127 ml Output Total 810 ml 395 ml Balance 475 ml 732 ml Intake Free Water 30 ml IV Total 655 ml 627 ml Tube Feeding 600 ml 500 ml Output Urine Total 810 ml 395 ml General Appearance: no acute distress Respiratory: chest wall non-tender, lungs clear Cardiovascular: normal peripheral pulses, normal rate Abdomen: normal bowel sounds Laboratory Tests 12/18/19 20:21: Arterial Blood pH 7.046*L, Arterial Blood Partial Pressure CO2 141.7*H, Arterial Blood Partial Pressure O2 73.4L, Arterial Blood HCO3 38.0H, Arterial Blood Oxygen Saturation 87.0*L, Arterial Blood Base Excess 3.5H, Raphael Test Positive 12/18/19 21:58: Arterial Blood pH 7.422, Arterial Blood Partial Pressure CO2 47.0H, Arterial Blood Partial Pressure O2 119.8H, Arterial Blood HCO3 29.9H, Arterial Blood Oxygen Saturation 98.3, Arterial Blood Base Excess 4.8H, Raphael Test Positive 12/18/19 23:38: POC Whole Blood Glucose [Pending] 12/19/19 03:00: White Blood Count 7.5, Red Blood Count 2.97L, Hemoglobin 9.6L, Hematocrit 30.8L , Mean Corpuscular Volume 104H, Mean Corpuscular Hemoglobin 32.1H, Mean Corpuscular Hemoglobin Concent 31.1L, Red Cell Distribution Width 13.2, Platelet Count 155, Mean Platelet Volume 6.2L, Neutrophils (%) (Auto) 72.0, Lymphocytes (%) (Auto) 15.4L, Monocytes (%) (Auto) 9.2, Eosinophils (%) (Auto) 2.6, Basophils (%) (Auto) 0.9, Sodium Level 149H, Potassium Level 4.4, Chloride Level 110H, Carbon Dioxide Level 31, Anion Gap 8, Blood Urea Nitrogen 22H, Creatinine 1.0, Estimat Glomerular Filtration Rate 53.3, Glucose Level 82, Calcium Level 8.3L, Total Bilirubin 0.8, Aspartate Amino Transf (AST/SGOT) 19, Alanine Aminotransferase (ALT/SGPT) 38, Alkaline Phosphatase 36L, Total Protein 5.8L, Albumin 3.0L, Globulin 2.8, Albumin/Globulin Ratio 1.1 12/19/19 05:24: POC Whole Blood Glucose [Pending] 12/19/19 08:32: Arterial Blood pH 7.567*H, Arterial Blood Partial Pressure CO2 35.0, Arterial Blood Partial Pressure O2 71.7L, Arterial Blood HCO3 31.1H, Arterial Blood Oxygen Saturation 95.4, Arterial Blood Base Excess 8.6H, Raphael Test Positive Current Medications Medications (Trade) Dose Ordered Sig/Angie Route PRN Reason Start Time Stop Time Status Last Admin Dose Admin Acetaminophen (Tylenol) 650 mg Q6H PRN ORAL Mild Pain (Pain Scale 1-3) 12/12/19 12:30 01/11/20 12:29 Acetaminophen (Tylenol) 1,000 mg Q6H PRN ORAL MODERATE PAIN 12/12/19 12:30 01/11/20 12:29 Amantadine HCl (Symmetrel) 100 mg TWICE A DAY GT 12/15/19 18:00 01/11/20 08:59 12/19/19 08:48 Aspirin (Ecotrin) 325 mg DAILY ORAL 12/13/19 09:00 01/26/20 08:59 12/19/19 08:48 Atorvastatin Calcium (Lipitor) 10 mg BEDTIME GT 12/15/19 21:00 03/11/20 20:59 12/17/19 20:43 Calcium Carbonate (Os-Octavio) 1,250 mg THREE TIMES A DAY GT 12/15/19 18:00 03/11/20 09:59 12/19/19 08:48 Cefepime HCl 1 gm/ Dextrose 55 ml @ 110 mls/hr Q24H IVPB 12/12/19 16:00 12/25/19 15:59 12/18/19 16:25 Clonidine HCl (Catapres Tab) 0.1 mg Q6H PRN GT For high BP over 160 systolic 12/15/19 16:30 03/11/20 12:30 Dextrose (Dextrose 50%) 25 ml Q30M PRN IV Hypoglycemia 12/13/19 07:15 03/12/20 07:14 Dextrose (Dextrose 50%) 50 ml Q30M PRN IV Hypoglycemia 12/13/19 07:15 03/12/20 07:14 Divalproex Sodium (Depakote Sprinkles) 250 mg EVERY 12 HOURS NG 12/13/19 21:00 01/12/20 20:59 12/19/19 08:49 Docusate Sodium (Colace) 100 mg TWICE A DAY NG 12/15/19 18:00 01/14/20 17:59 12/19/19 08:48 Fentanyl Citrate 250 ml @ 0 mls/hr Q24H IV 12/18/19 20:53 03/17/20 20:52 12/18/19 20:53 Haloperidol Lactate 5 mg/ Dextrose 56 ml @ 224 mls/hr Q6H PRN IVPB agitation 12/18/19 10:45 02/01/20 10:44 Insulin Aspart (NovoLOG) EVERY 6 HOURS SUBQ 12/13/19 12:00 03/12/20 11:59 12/16/19 17:39 Levothyroxine Sodium (Synthroid) 75 mcg DAILY IV 12/13/19 09:00 01/11/20 09:29 12/19/19 08:49 Lorazepam (Ativan) 1 mg Q6H PRN GT For Anxiety 12/19/19 08:45 12/19/19 12:30 Nitroglycerin (Ntg) 0.4 mg Q5MIN X 3 DOSES PRN SL CHEST PAIN 12/12/19 12:00 01/10/20 21:44 Olanzapine (ZyPREXA) 5 mg BID GT 12/15/19 18:00 01/26/20 08:59 12/19/19 08:48 Pantoprazole (Protonix) 40 mg EVERY 12 HOURS IVP 12/14/19 09:00 01/13/20 08:59 12/19/19 08:50 Phosphorus (Phospha 250 Neutral) 250 mg THREE TIMES A DAY GT 12/15/19 09:00 01/14/20 08:59 12/19/19 08:48 Sodium Chloride 1,000 ml @ 50 mls/hr Q20H IV 12/12/19 12:30 01/11/20 12:29 12/19/19 04:38 Assessment/Plan Assessment/Plan IMPRESSION: 1. Respiratory failure. 2. Has healthcare-associated pneumonia; is negative for COVID-19. 3. Psych disorder. 4. Obesity. 5. Hypertension. DISCUSSION: Continue broad spectrum antibiotics. On propofol. I will manage respirator, currently on AC mode 50% FiO2 and PEEP of 5. Has negative COVID-19 swab. I will follow carefully. Continue weaning; failed self-extubation yesterday Will continue Haldol to assist in weaning Emerita Fan Omar Syed MD Dec 19, 2019 10:16
--- NOTE | 2019-12-19 10:43 | Infectious Diseases Prog Note ---
Assessment/Plan Assessment/Plan IMPRESSION: COPD exacerbation, Pneumonia, COID19 X 2: negative Acute respiratory failure with hypercapnia Dementia, Parkinson, Mitral valve regurgitation, Hypertension, Hypothyroidism. 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 Subjective ROS Limited/Unobtainable: Yes Respiratory: Reports: other - extubated yesterd but reintubated after one hour Allergies: Coded Allergies: LITHIUM (Verified Allergy, Unknown, 02/07/19) Objective Last 24 Hour Vital Signs Date Time Temp Pulse Resp B/P (MAP) Pulse Ox O2 Delivery O2 Flow Rate FiO2 12/19/19 10:30 68 12 99/37 (57) 100 12/19/19 10:30 50 12/19/19 10:00 67 24 100/37 (58) 100 12/19/19 09:30 67 24 92/42 (59) 100 12/19/19 09:00 24 104/37 Mechanical Ventilator 50 12/19/19 09:00 67 24 104/37 (59) 99 12/19/19 08:46 50 12/19/19 08:30 68 24 99/38 (58) 100 12/19/19 08:00 99.1 70 24 95/36 (55) 99 12/19/19 08:00 Mechanical Ventilator 12/19/19 08:00 24 95/36 Mechanical Ventilator 60 12/19/19 08:00 60 12/19/19 08:00 70 12/19/19 07:30 71 24 94/37 (56) 100 12/19/19 07:05 68 24 60 12/19/19 07:00 70 24 95/37 (56) 100 12/19/19 07:00 24 95/37 Mechanical Ventilator 60 12/19/19 06:30 89 24 12/19/19 06:30 24 96/38 Mechanical Ventilator 60.0 60 12/19/19 06:30 72 24 96/38 (57) 100 12/19/19 06:00 74 24 94/36 (55) 100 12/19/19 06:00 24 94/36 Mechanical Ventilator 60.0 60 12/19/19 05:30 73 24 94/39 (57) 100 12/19/19 05:30 24 94/39 Mechanical Ventilator 60.0 60 12/19/19 05:00 74 24 106/38 (60) 100 12/19/19 05:00 24 106/38 Mechanical Ventilator 60.0 60 12/19/19 04:30 76 24 97/44 (61) 100 12/19/19 04:00 73 12/19/19 04:00 23 124/43 Mechanical Ventilator 60.0 60 12/19/19 04:00 60 12/19/19 04:00 Mechanical Ventilator 12/19/19 04:00 98.6 78 23 98/44 (62) 97 12/19/19 03:30 73 24 98/44 (62) 96 12/19/19 03:09 73 24 60 12/19/19 03:00 24 114/41 Mechanical Ventilator 60.0 60 12/19/19 03:00 74 24 114/41 (65) 96 12/19/19 02:30 74 25 98/38 (58) 95 12/19/19 02:00 75 25 91/67 (75) 100 12/19/19 02:00 24 91/67 Mechanical Ventilator 60.0 60 12/19/19 01:30 23 97/51 Mechanical Ventilator 60.0 60 12/19/19 01:30 75 23 97/51 (66) 99 12/19/19 01:00 23 90/44 Mechanical Ventilator 60.0 60 12/19/19 01:00 76 25 90/44 (59) 99 12/19/19 00:45 23 94/59 Mechanical Ventilator 60.0 60 12/19/19 00:30 78 23 95/38 (57) 100 12/19/19 00:30 23 95/38 Mechanical Ventilator 60.0 60 12/19/19 00:15 21 106/78 Mechanical Ventilator 60.0 60 12/19/19 00:00 98.7 85 25 124/99 (107) 100 12/19/19 00:00 82 12/19/19 00:00 60 12/19/19 00:00 Mechanical Ventilator 12/19/19 00:00 21 124/99 Mechanical Ventilator 60.0 100 12/18/19 23:30 22 107/44 Mechanical Ventilator 60.0 100 12/18/19 23:30 82 22 107/46 (66) 100 12/18/19 23:13 81 26 60 12/18/19 23:00 23 107/46 Mechanical Ventilator 60.0 100 12/18/19 23:00 82 28 107/44 (65) 100 12/18/19 22:30 24 93/39 Non-Rebreather 60.0 100 12/18/19 22:30 86 24 93/39 (57) 100 12/18/19 22:26 80 12/18/19 22:00 98 28 113/50 (71) 93 12/18/19 22:00 24 97/40 Mechanical Ventilator 60.0 100 12/18/19 21:30 24 138/53 Mechanical Ventilator 60.0 100 12/18/19 21:30 105 24 138/53 (81) 93 12/18/19 21:15 26 133/52 Mechanical Ventilator 60.0 100 12/18/19 21:00 115 24 169/72 (104) 98 12/18/19 21:00 24 169/72 Mechanical Ventilator 60.0 100 12/18/19 20:53 25 147/62 Mechanical Ventilator 100 12/18/19 20:45 109 26 100 12/18/19 20:30 120 24 102/51 (68) 98 12/18/19 20:00 108 12/18/19 20:00 Mechanical Ventilator 12/18/19 20:00 98.5 129 24 130/78 (95) 99 12/18/19 20:00 30 12/18/19 19:54 108 20 100 100 12/18/19 19:35 Bi-pap 100 12/18/19 19:00 98 28 113/50 (71) 93 12/18/19 18:00 98 24 112/48 (69) 96 12/18/19 17:00 97 26 115/42 (66) 92 12/18/19 17:00 91 24 30 12/18/19 16:00 30 12/18/19 16:00 Mechanical Ventilator 12/18/19 16:00 76 12/18/19 16:00 98.4 88 25 117/50 (72) 97 12/18/19 16:00 30 12/18/19 15:15 30 12/18/19 15:12 88 22 30 30 12/18/19 15:00 89 15 103/43 (63) 97 12/18/19 14:00 77 15 106/76 (86) 97 12/18/19 13:00 76 20 110/41 (64) 100 12/18/19 12:00 98.6 15 113/47 (69) 98 12/18/19 12:00 30 12/18/19 12:00 76 12/18/19 12:00 Mechanical Ventilator 12/18/19 11:13 76 15 30 12/18/19 11:00 78 20 108/43 (64) 100 Height (Feet): 5 Height (Inches): 7.00 Weight (Pounds): 211 HEENT: mucous membranes moist, other - orally intubated Respiratory/Chest: lungs clear, other - on ventilator Cardiovascular: normal rate Abdomen: soft, non tender Extremities: no edema Neurologic/Psychiatric: other - sleeping Laboratory Tests Test 12/18/19 20:21 12/18/19 21:58 12/18/19 23:38 12/19/19 03:00 Arterial Blood pH 7.046 (7.350-7.450) 7.422 (7.350-7.450) Arterial Blood Partial Pressure CO2 141.7 mmHg (35.0-45.0) *H 47.0 mmHg (35.0-45.0) H Arterial Blood Partial Pressure O2 73.4 mmHg (75.0-100.0) L 119.8 mmHg (75.0-100.0) H Arterial Blood HCO3 38.0 mmol/L (22.0-26.0) H 29.9 mmol/L (22.0-26.0) H Arterial Blood Oxygen Saturation 87.0 % (95-100) *L 98.3 % (95-100) Arterial Blood Base Excess 3.5 (-2-2) H 4.8 (-2-2) H Raphael Test Positive Positive POC Whole Blood Glucose Pending White Blood Count 7.5 K/UL (4.8-10.8) Red Blood Count 2.97 M/UL (4.20-5.40) L Hemoglobin 9.6 G/DL (12.0-16.0) L Hematocrit 30.8 % (37.0-47.0) L Mean Corpuscular Volume 104 FL (80-99) H Mean Corpuscular Hemoglobin 32.1 PG (27.0-31.0) H Mean Corpuscular Hemoglobin Concent 31.1 G/DL (32.0-36.0) L Red Cell Distribution Width 13.2 % (11.6-14.8) Platelet Count 155 K/UL (150-450) Mean Platelet Volume 6.2 FL (6.5-10.1) L Neutrophils (%) (Auto) 72.0 % (45.0-75.0) Lymphocytes (%) (Auto) 15.4 % (20.0-45.0) L Monocytes (%) (Auto) 9.2 % (1.0-10.0) Eosinophils (%) (Auto) 2.6 % (0.0-3.0) Basophils (%) (Auto) 0.9 % (0.0-2.0) Sodium Level 149 MMOL/L (136-145) H Potassium Level 4.4 MMOL/L (3.5-5.1) Chloride Level 110 MMOL/L (98-107) H Carbon Dioxide Level 31 MMOL/L (21-32) Anion Gap 8 mmol/L (5-15) Blood Urea Nitrogen 22 mg/dL (7-18) H Creatinine 1.0 MG/DL (0.55-1.30) Estimat Glomerular Filtration Rate 53.3 mL/min (>60) Glucose Level 82 MG/DL (74-106) Calcium Level 8.3 MG/DL (8.5-10.1) L Total Bilirubin 0.8 MG/DL (0.2-1.0) Aspartate Amino Transf (AST/SGOT) 19 U/L (15-37) Alanine Aminotransferase (ALT/SGPT) 38 U/L (12-78) Alkaline Phosphatase 36 U/L (46-116) L Total Protein 5.8 G/DL (6.4-8.2) L Albumin 3.0 G/DL (3.4-5.0) L Globulin 2.8 g/dL Albumin/Globulin Ratio 1.1 (1.0-2.7) Test 12/19/19 05:24 12/19/19 08:32 POC Whole Blood Glucose Pending Arterial Blood pH 7.567 (7.350-7.450) Arterial Blood Partial Pressure CO2 35.0 mmHg (35.0-45.0) Arterial Blood Partial Pressure O2 71.7 mmHg (75.0-100.0) L Arterial Blood HCO3 31.1 mmol/L (22.0-26.0) H Arterial Blood Oxygen Saturation 95.4 % (95-100) Arterial Blood Base Excess 8.6 (-2-2) H Raphael Test Positive Current Medications Medications (Trade) Dose Ordered Sig/Angie Route PRN Reason Start Time Stop Time Status Last Admin Dose Admin Acetaminophen (Tylenol) 650 mg Q6H PRN ORAL Mild Pain (Pain Scale 1-3) 12/12/19 12:30 01/11/20 12:29 Acetaminophen (Tylenol) 1,000 mg Q6H PRN ORAL MODERATE PAIN 12/12/19 12:30 01/11/20 12:29 Amantadine HCl (Symmetrel) 100 mg TWICE A DAY GT 12/15/19 18:00 01/11/20 08:59 12/19/19 08:48 Aspirin (Ecotrin) 325 mg DAILY ORAL 12/13/19 09:00 01/26/20 08:59 12/19/19 08:48 Atorvastatin Calcium (Lipitor) 10 mg BEDTIME GT 12/15/19 21:00 03/11/20 20:59 12/17/19 20:43 Calcium Carbonate (Os-Octavio) 1,250 mg THREE TIMES A DAY GT 12/15/19 18:00 03/11/20 09:59 12/19/19 08:48 Cefepime HCl 1 gm/ Dextrose 55 ml @ 110 mls/hr Q24H IVPB 12/12/19 16:00 12/25/19 15:59 12/18/19 16:25 Clonidine HCl (Catapres Tab) 0.1 mg Q6H PRN GT For high BP over 160 systolic 12/15/19 16:30 03/11/20 12:30 Dextrose (Dextrose 50%) 25 ml Q30M PRN IV Hypoglycemia 12/13/19 07:15 03/12/20 07:14 Dextrose (Dextrose 50%) 50 ml Q30M PRN IV Hypoglycemia 12/13/19 07:15 03/12/20 07:14 Divalproex Sodium (Depakote Sprinkles) 250 mg EVERY 12 HOURS NG 12/13/19 21:00 01/12/20 20:59 12/19/19 08:49 Docusate Sodium (Colace) 100 mg TWICE A DAY NG 12/15/19 18:00 01/14/20 17:59 12/19/19 08:48 Fentanyl Citrate 250 ml @ 0 mls/hr Q24H IV 12/18/19 20:53 03/17/20 20:52 12/18/19 20:53 Haloperidol Lactate 5 mg/ Dextrose 56 ml @ 224 mls/hr Q6H PRN IVPB agitation 12/18/19 10:45 02/01/20 10:44 Insulin Aspart (NovoLOG) EVERY 6 HOURS SUBQ 12/13/19 12:00 03/12/20 11:59 12/16/19 17:39 Levothyroxine Sodium (Synthroid) 75 mcg DAILY IV 12/13/19 09:00 01/11/20 09:29 12/19/19 08:49 Lorazepam (Ativan) 1 mg Q6H PRN GT For Anxiety 12/19/19 08:45 12/19/19 12:30 Nitroglycerin (Ntg) 0.4 mg Q5MIN X 3 DOSES PRN SL CHEST PAIN 12/12/19 12:00 01/10/20 21:44 Olanzapine (ZyPREXA) 5 mg BID GT 12/15/19 18:00 01/26/20 08:59 12/19/19 08:48 Pantoprazole (Protonix) 40 mg EVERY 12 HOURS IVP 12/14/19 09:00 01/13/20 08:59 12/19/19 08:50 Phosphorus (Phospha 250 Neutral) 250 mg THREE TIMES A DAY GT 12/15/19 09:00 01/14/20 08:59 12/19/19 08:48 Sodium Chloride 1,000 ml @ 50 mls/hr Q20H IV 12/12/19 12:30 01/11/20 12:29 12/19/19 04:38 Lei Chan MD Dec 19, 2019 10:43
--- NOTE | 2019-12-19 10:52 | Nephrology Progress Note ---
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 Respiratory distress most likely secondary to pulmonary edema and or COPD exacerbation. Hyponatremia. Obese. Hypothyroidism. Elevated d-dimer. Elevated liver enzymes Plan December 18: Patient self extubated yesterday however was reintubated. Remains stable from renal standpoint of view. Discussed with RN. Discussed with Dr. Myers. December 17: Remains intubated. Remains full code. Failed weaning. Stable from renal standpoint of view. Continue per consultants. Discussed with DARREL [place]. December 16: Remains intubated. Full code. Weaning in process. Stable from renal standpoint of view. December 15: Remains vented. Electrolytes improved. Continue per consultants. December 14: Patient remains in ICU intubated on ventilator. Potassium low. Phosphorus low. Supplements given. Renal parameters are stable. Continue per consultants. December 13: Patient remains in ICU intubated on ventilator. Discussed with RN. Labs reviewed. Creatinine 1.3. Potassium supplements given. Mag sulfate IV 2 g given. Continue per consultants. December 12: Patient in ICU. Intubated on ventilator. Discussed with RN. Labs reviewed. Potassium supplement given. Continue per consultants. Arterial blood gas indicative of CO2 retention. Patient on the way to ICU for intubation. Continue per pulmonary management. Pulmonary support, Check 2D echocardiogram. Previous 2D echo had a 50% ejection fraction. Keep blood sugar and blood pressure in check. Thyroid panel. Monitor electrolytes and renal parameters. Afterload reduction. Diuretics Monitor serum calcium, supplements via NG tube. Per orders. Subjective ROS Limited/Unobtainable: Yes Objective Objective Last 24 Hour Vital Signs Date Time Temp Pulse Resp B/P (MAP) Pulse Ox O2 Delivery O2 Flow Rate FiO2 12/19/19 10:30 68 12 99/37 (57) 100 12/19/19 10:30 50 12/19/19 10:00 67 24 100/37 (58) 100 12/19/19 10:00 24 100/37 Mechanical Ventilator 50 12/19/19 09:30 67 24 92/42 (59) 100 12/19/19 09:00 24 104/37 Mechanical Ventilator 50 12/19/19 09:00 67 24 104/37 (59) 99 12/19/19 08:46 50 12/19/19 08:30 68 24 99/38 (58) 100 12/19/19 08:00 99.1 70 24 95/36 (55) 99 12/19/19 08:00 Mechanical Ventilator 12/19/19 08:00 24 95/36 Mechanical Ventilator 60 12/19/19 08:00 60 12/19/19 08:00 70 12/19/19 07:30 71 24 94/37 (56) 100 12/19/19 07:05 68 24 60 12/19/19 07:00 70 24 95/37 (56) 100 12/19/19 07:00 24 95/37 Mechanical Ventilator 60 12/19/19 06:30 89 24 12/19/19 06:30 24 96/38 Mechanical Ventilator 60.0 60 12/19/19 06:30 72 24 96/38 (57) 100 12/19/19 06:00 74 24 94/36 (55) 100 12/19/19 06:00 24 94/36 Mechanical Ventilator 60.0 60 12/19/19 05:30 73 24 94/39 (57) 100 12/19/19 05:30 24 94/39 Mechanical Ventilator 60.0 60 12/19/19 05:00 74 24 106/38 (60) 100 12/19/19 05:00 24 106/38 Mechanical Ventilator 60.0 60 12/19/19 04:30 76 24 97/44 (61) 100 12/19/19 04:00 73 12/19/19 04:00 23 124/43 Mechanical Ventilator 60.0 60 12/19/19 04:00 60 12/19/19 04:00 Mechanical Ventilator 12/19/19 04:00 98.6 78 23 98/44 (62) 97 12/19/19 03:30 73 24 98/44 (62) 96 12/19/19 03:09 73 24 60 12/19/19 03:00 24 114/41 Mechanical Ventilator 60.0 60 12/19/19 03:00 74 24 114/41 (65) 96 12/19/19 02:30 74 25 98/38 (58) 95 12/19/19 02:00 75 25 91/67 (75) 100 12/19/19 02:00 24 91/67 Mechanical Ventilator 60.0 60 12/19/19 01:30 23 97/51 Mechanical Ventilator 60.0 60 12/19/19 01:30 75 23 97/51 (66) 99 12/19/19 01:00 23 90/44 Mechanical Ventilator 60.0 60 12/19/19 01:00 76 25 90/44 (59) 99 12/19/19 00:45 23 94/59 Mechanical Ventilator 60.0 60 12/19/19 00:30 78 23 95/38 (57) 100 12/19/19 00:30 23 95/38 Mechanical Ventilator 60.0 60 12/19/19 00:15 21 106/78 Mechanical Ventilator 60.0 60 12/19/19 00:00 98.7 85 25 124/99 (107) 100 12/19/19 00:00 82 12/19/19 00:00 60 12/19/19 00:00 Mechanical Ventilator 12/19/19 00:00 21 124/99 Mechanical Ventilator 60.0 100 12/18/19 23:30 22 107/44 Mechanical Ventilator 60.0 100 12/18/19 23:30 82 22 107/46 (66) 100 12/18/19 23:13 81 26 60 12/18/19 23:00 23 107/46 Mechanical Ventilator 60.0 100 12/18/19 23:00 82 28 107/44 (65) 100 12/18/19 22:30 24 93/39 Non-Rebreather 60.0 100 12/18/19 22:30 86 24 93/39 (57) 100 12/18/19 22:26 80 12/18/19 22:00 98 28 113/50 (71) 93 12/18/19 22:00 24 97/40 Mechanical Ventilator 60.0 100 12/18/19 21:30 24 138/53 Mechanical Ventilator 60.0 100 12/18/19 21:30 105 24 138/53 (81) 93 12/18/19 21:15 26 133/52 Mechanical Ventilator 60.0 100 12/18/19 21:00 115 24 169/72 (104) 98 12/18/19 21:00 24 169/72 Mechanical Ventilator 60.0 100 12/18/19 20:53 25 147/62 Mechanical Ventilator 100 12/18/19 20:45 109 26 100 12/18/19 20:30 120 24 102/51 (68) 98 12/18/19 20:00 108 12/18/19 20:00 Mechanical Ventilator 12/18/19 20:00 98.5 129 24 130/78 (95) 99 12/18/19 20:00 30 12/18/19 19:54 108 20 100 100 12/18/19 19:35 Bi-pap 100 12/18/19 19:00 98 28 113/50 (71) 93 12/18/19 18:00 98 24 112/48 (69) 96 12/18/19 17:00 97 26 115/42 (66) 92 12/18/19 17:00 91 24 30 12/18/19 16:00 30 12/18/19 16:00 Mechanical Ventilator 12/18/19 16:00 76 12/18/19 16:00 98.4 88 25 117/50 (72) 97 12/18/19 16:00 30 12/18/19 15:15 30 12/18/19 15:12 88 22 30 30 12/18/19 15:00 89 15 103/43 (63) 97 12/18/19 14:00 77 15 106/76 (86) 97 12/18/19 13:00 76 20 110/41 (64) 100 12/18/19 12:00 98.6 15 113/47 (69) 98 12/18/19 12:00 30 12/18/19 12:00 76 12/18/19 12:00 Mechanical Ventilator 12/18/19 11:13 76 15 30 12/18/19 11:00 78 20 108/43 (64) 100 Intake and Output 12/18/19 12/19/19 19:00 07:00 Intake Total 1285 ml 1127 ml Output Total 810 ml 395 ml Balance 475 ml 732 ml Intake Free Water 30 ml IV Total 655 ml 627 ml Tube Feeding 600 ml 500 ml Output Urine Total 810 ml 395 ml Laboratory Tests 12/18/19 20:21: Arterial Blood pH 7.046*L, Arterial Blood Partial Pressure CO2 141.7*H, Arterial Blood Partial Pressure O2 73.4L, Arterial Blood HCO3 38.0H, Arterial Blood Oxygen Saturation 87.0*L, Arterial Blood Base Excess 3.5H, Raphael Test Positive 12/18/19 21:58: Arterial Blood pH 7.422, Arterial Blood Partial Pressure CO2 47.0H, Arterial Blood Partial Pressure O2 119.8H, Arterial Blood HCO3 29.9H, Arterial Blood Oxygen Saturation 98.3, Arterial Blood Base Excess 4.8H, Raphael Test Positive 12/18/19 23:38: POC Whole Blood Glucose [Pending] 12/19/19 03:00: White Blood Count 7.5, Red Blood Count 2.97L, Hemoglobin 9.6L, Hematocrit 30.8L , Mean Corpuscular Volume 104H, Mean Corpuscular Hemoglobin 32.1H, Mean Corpuscular Hemoglobin Concent 31.1L, Red Cell Distribution Width 13.2, Platelet Count 155, Mean Platelet Volume 6.2L, Neutrophils (%) (Auto) 72.0, Lymphocytes (%) (Auto) 15.4L, Monocytes (%) (Auto) 9.2, Eosinophils (%) (Auto) 2.6, Basophils (%) (Auto) 0.9, Sodium Level 149H, Potassium Level 4.4, Chloride Level 110H, Carbon Dioxide Level 31, Anion Gap 8, Blood Urea Nitrogen 22H, Creatinine 1.0, Estimat Glomerular Filtration Rate 53.3, Glucose Level 82, Calcium Level 8.3L, Total Bilirubin 0.8, Aspartate Amino Transf (AST/SGOT) 19, Alanine Aminotransferase (ALT/SGPT) 38, Alkaline Phosphatase 36L, Total Protein 5.8L, Albumin 3.0L, Globulin 2.8, Albumin/Globulin Ratio 1.1 12/19/19 05:24: POC Whole Blood Glucose [Pending] 12/19/19 08:32: Arterial Blood pH 7.567*H, Arterial Blood Partial Pressure CO2 35.0, Arterial Blood Partial Pressure O2 71.7L, Arterial Blood HCO3 31.1H, Arterial Blood Oxygen Saturation 95.4, Arterial Blood Base Excess 8.6H, Raphael Test Positive Height (Feet): 5 Height (Inches): 7.00 Weight (Pounds): 211 General Appearance: no apparent distress EENT: other - Currently remains intubated Cardiovascular: normal rate Respiratory/Chest: decreased breath sounds Bryan Ochoa MD Dec 19, 2019 10:52
--- NOTE | 2019-12-19 11:12 | NUR ---
NURSE NOTES: Dr Vidal at bedside assessing pt and reviewing labs for today- let him know pt has not yet had BM since admission.
--- NOTE | 2019-12-19 11:29 | General Progress Note ---
Assessment/Plan Status: progressing Assessment/Plan: Assessment - Resp failure - r/o COVID -- x 2 negative - COPD - HTN - Anemia - Abnormal LFT Recommendations - TF - Elevate HOB - abx - follow labs - f/u hepatitis serologies -add mirakax and lactulose -repeat labs Subjective ROS Limited/Unobtainable: No Allergies: Coded Allergies: LITHIUM (Verified Allergy, Unknown, 02/07/19) Objective Last 24 Hour Vital Signs Date Time Temp Pulse Resp B/P (MAP) Pulse Ox O2 Delivery O2 Flow Rate FiO2 12/19/19 10:30 68 12 99/37 (57) 100 12/19/19 10:30 50 12/19/19 10:00 67 24 100/37 (58) 100 12/19/19 10:00 24 100/37 Mechanical Ventilator 50 12/19/19 09:30 67 24 92/42 (59) 100 12/19/19 09:00 24 104/37 Mechanical Ventilator 50 12/19/19 09:00 67 24 104/37 (59) 99 12/19/19 08:46 50 12/19/19 08:30 68 24 99/38 (58) 100 12/19/19 08:00 99.1 70 24 95/36 (55) 99 12/19/19 08:00 Mechanical Ventilator 12/19/19 08:00 24 95/36 Mechanical Ventilator 60 12/19/19 08:00 60 12/19/19 08:00 70 12/19/19 07:30 71 24 94/37 (56) 100 12/19/19 07:05 68 24 60 12/19/19 07:00 70 24 95/37 (56) 100 12/19/19 07:00 24 95/37 Mechanical Ventilator 60 12/19/19 06:30 89 24 12/19/19 06:30 24 96/38 Mechanical Ventilator 60.0 60 12/19/19 06:30 72 24 96/38 (57) 100 12/19/19 06:00 74 24 94/36 (55) 100 12/19/19 06:00 24 94/36 Mechanical Ventilator 60.0 60 12/19/19 05:30 73 24 94/39 (57) 100 12/19/19 05:30 24 94/39 Mechanical Ventilator 60.0 60 12/19/19 05:00 74 24 106/38 (60) 100 7/8/20 05:00 24 106/38 Mechanical Ventilator 60.0 60 12/19/19 04:30 76 24 97/44 (61) 100 12/19/19 04:00 73 12/19/19 04:00 23 124/43 Mechanical Ventilator 60.0 60 12/19/19 04:00 60 12/19/19 04:00 Mechanical Ventilator 12/19/19 04:00 98.6 78 23 98/44 (62) 97 12/19/19 03:30 73 24 98/44 (62) 96 12/19/19 03:09 73 24 60 12/19/19 03:00 24 114/41 Mechanical Ventilator 60.0 60 12/19/19 03:00 74 24 114/41 (65) 96 12/19/19 02:30 74 25 98/38 (58) 95 12/19/19 02:00 75 25 91/67 (75) 100 12/19/19 02:00 24 91/67 Mechanical Ventilator 60.0 60 12/19/19 01:30 23 97/51 Mechanical Ventilator 60.0 60 12/19/19 01:30 75 23 97/51 (66) 99 12/19/19 01:00 23 90/44 Mechanical Ventilator 60.0 60 12/19/19 01:00 76 25 90/44 (59) 99 12/19/19 00:45 23 94/59 Mechanical Ventilator 60.0 60 12/19/19 00:30 78 23 95/38 (57) 100 12/19/19 00:30 23 95/38 Mechanical Ventilator 60.0 60 12/19/19 00:15 21 106/78 Mechanical Ventilator 60.0 60 12/19/19 00:00 98.7 85 25 124/99 (107) 100 12/19/19 00:00 82 12/19/19 00:00 60 12/19/19 00:00 Mechanical Ventilator 12/19/19 00:00 21 124/99 Mechanical Ventilator 60.0 100 12/18/19 23:30 22 107/44 Mechanical Ventilator 60.0 100 12/18/19 23:30 82 22 107/46 (66) 100 12/18/19 23:13 81 26 60 12/18/19 23:00 23 107/46 Mechanical Ventilator 60.0 100 12/18/19 23:00 82 28 107/44 (65) 100 12/18/19 22:30 24 93/39 Non-Rebreather 60.0 100 12/18/19 22:30 86 24 93/39 (57) 100 12/18/19 22:26 80 12/18/19 22:00 98 28 113/50 (71) 93 12/18/19 22:00 24 97/40 Mechanical Ventilator 60.0 100 12/18/19 21:30 24 138/53 Mechanical Ventilator 60.0 100 12/18/19 21:30 105 24 138/53 (81) 93 12/18/19 21:15 26 133/52 Mechanical Ventilator 60.0 100 12/18/19 21:00 115 24 169/72 (104) 98 12/18/19 21:00 24 169/72 Mechanical Ventilator 60.0 100 12/18/19 20:53 25 147/62 Mechanical Ventilator 100 12/18/19 20:45 109 26 100 12/18/19 20:30 120 24 102/51 (68) 98 12/18/19 20:00 108 12/18/19 20:00 Mechanical Ventilator 12/18/19 20:00 98.5 129 24 130/78 (95) 99 12/18/19 20:00 30 12/18/19 19:54 108 20 100 100 12/18/19 19:35 Bi-pap 100 12/18/19 19:00 98 28 113/50 (71) 93 12/18/19 18:00 98 24 112/48 (69) 96 12/18/19 17:00 97 26 115/42 (66) 92 12/18/19 17:00 91 24 30 12/18/19 16:00 30 12/18/19 16:00 Mechanical Ventilator 12/18/19 16:00 76 12/18/19 16:00 98.4 88 25 117/50 (72) 97 12/18/19 16:00 30 12/18/19 15:15 30 12/18/19 15:12 88 22 30 30 12/18/19 15:00 89 15 103/43 (63) 97 12/18/19 14:00 77 15 106/76 (86) 97 12/18/19 13:00 76 20 110/41 (64) 100 12/18/19 12:00 98.6 15 113/47 (69) 98 12/18/19 12:00 30 12/18/19 12:00 76 12/18/19 12:00 Mechanical Ventilator Intake and Output 12/18/19 12/19/19 18:59 06:59 Intake Total 1235 ml 1147 ml Output Total 780 ml 450 ml Balance 455 ml 697 ml Intake Free Water 30 ml IV Total 605 ml 647 ml Tube Feeding 600 ml 500 ml Output Urine Total 780 ml 450 ml Laboratory Tests 12/18/19 20:21: Arterial Blood pH 7.046*L, Arterial Blood Partial Pressure CO2 141.7*H, Arterial Blood Partial Pressure O2 73.4L, Arterial Blood HCO3 38.0H, Arterial Blood Oxygen Saturation 87.0*L, Arterial Blood Base Excess 3.5H, Raphael Test Positive 12/18/19 21:58: Arterial Blood pH 7.422, Arterial Blood Partial Pressure CO2 47.0H, Arterial Blood Partial Pressure O2 119.8H, Arterial Blood HCO3 29.9H, Arterial Blood Oxygen Saturation 98.3, Arterial Blood Base Excess 4.8H, Raphael Test Positive 12/18/19 23:38: POC Whole Blood Glucose [Pending] 12/19/19 03:00: White Blood Count 7.5, Red Blood Count 2.97L, Hemoglobin 9.6L, Hematocrit 30.8L , Mean Corpuscular Volume 104H, Mean Corpuscular Hemoglobin 32.1H, Mean Corpuscular Hemoglobin Concent 31.1L, Red Cell Distribution Width 13.2, Platelet Count 155, Mean Platelet Volume 6.2L, Neutrophils (%) (Auto) 72.0, Lymphocytes (%) (Auto) 15.4L, Monocytes (%) (Auto) 9.2, Eosinophils (%) (Auto) 2.6, Basophils (%) (Auto) 0.9, Sodium Level 149H, Potassium Level 4.4, Chloride Level 110H, Carbon Dioxide Level 31, Anion Gap 8, Blood Urea Nitrogen 22H, Creatinine 1.0, Estimat Glomerular Filtration Rate 53.3, Glucose Level 82, Calcium Level 8.3L, Total Bilirubin 0.8, Aspartate Amino Transf (AST/SGOT) 19, Alanine Aminotransferase (ALT/SGPT) 38, Alkaline Phosphatase 36L, Total Protein 5.8L, Albumin 3.0L, Globulin 2.8, Albumin/Globulin Ratio 1.1 12/19/19 05:24: POC Whole Blood Glucose [Pending] 12/19/19 08:32: Arterial Blood pH 7.567*H, Arterial Blood Partial Pressure CO2 35.0, Arterial Blood Partial Pressure O2 71.7L, Arterial Blood HCO3 31.1H, Arterial Blood Oxygen Saturation 95.4, Arterial Blood Base Excess 8.6H, Raphael Test Positive Height (Feet): 5 Height (Inches): 7.00 Weight (Pounds): 211 General Appearance: no apparent distress EENT: normal ENT inspection Neck: supple Cardiovascular: normal rate Respiratory/Chest: decreased breath sounds Abdomen: soft, hypoactive bowel sounds Extremities: non-tender Kirk Vidal MD Dec 19, 2019 11:29
--- NOTE | 2019-12-19 11:52 | NUR ---
DOUGHMAKER orders received on 12/11/19 for Bedside Swallow Evaluation from Dr. Ochoa. Patient was unable to participate at that time due to Patient being orally intubated. DOUGHMAKER re-attempted to see Patient on 12/17/19, 12/18/19, and today 12/19/19. Patient continues to be orally intubated and unable to participate in bedside swallow evaluation. DOUGHMAKER plans to discontinue orders as Patient is unable to participate given oral intubation. Please re-refer Patient s/p extubation and MD deems medically appropriate for swallow evaluation. Thank you for this referral! DOUGHMAKER [phone]
--- NOTE | 2019-12-19 12:00 | NUR ---
NURSE NOTES: Pt repositioned, oral care provided, pr afebrile, no distress noted. Head to toe assessment performed and charted. Will continue to monitor.
--- NOTE | 2019-12-19 12:12 | NUR ---
Late Entry: Vital Signs for December 12, 2019 were documented under Vital Sign under intervention as a late entry.
[2019-12-19] MEDS: Solu-MEDROL 40mg Inj IVP SCH ×3 (12:15→23:39)
--- NOTE | 2019-12-19 12:24 | NUR ---
CASE MANAGEMENT: REVIEW SI: ACUTE RESPIRATORY FAILURE . RE-INTUBATED . S/P SELF EXTUBATION T 97.5 HR 74 RR 12 BP 99/37 SAT 100% MECH VENT FIO2 60 H/H 9.6/30.8 NA 149 ABG: PH 7.568 PCO2 35.0 PO2 71.7 HCO3 31.1 O2 SAT 95.4 BASE 8.6 IS: FENTANYL IV Q24HR SOLU MEDROL IV Q6HR ZOSYN IV Q8HR NS IVF @ 50ML/HR DEPAKOTE NG Q12HR OG TUBE FEEDING WEANING DETERMINATIONS ICU STATUS DCP: PATIENT IS FROM [facility]
--- NOTE | 2019-12-19 12:57 | Cardiac Electrophysiology PN ---
Assessment/Plan Assessment/Plan 1. Recurrent respiratory failure with BNP of more than 19,000. Echo showed normal ejection fraction. Off Lasix 2. Bradycardia requiring atropine, Likely due to respiratory failure as was on T piece at the time. No recurrence on the Vent 3. Respiratory failure. Patient is intubated on the vent on steroids and antibiotic 4. History of Parkinson disease. 5. Hyperlipidemia. 6. Metabolic alkalosis. Better off Lasix DW RN Subjective Subjective Self extubated and re Intubated at 9.30 pm last night. On the vent off pressors. While on T piece, laney down to 40, received 0.4 Atropine and was put back on the vent again. Objective Last 24 Hour Vital Signs Date Time Temp Pulse Resp B/P (MAP) Pulse Ox O2 Delivery O2 Flow Rate FiO2 12/19/19 12:00 97.5 74 12 105/41 (62) 100 12/19/19 12:00 40 12/19/19 12:00 75 12/19/19 12:00 12 105/41 Mechanical Ventilator 40 12/19/19 11:47 40 12/19/19 11:44 72 12 40 12/19/19 11:30 70 13 101/40 (60) 100 12/19/19 11:00 14 100/39 Mechanical Ventilator 50 12/19/19 11:00 70 14 100/39 (59) 100 12/19/19 10:30 68 12 99/37 (57) 100 12/19/19 10:30 50 12/19/19 10:00 67 24 100/37 (58) 100 12/19/19 10:00 24 100/37 Mechanical Ventilator 50 12/19/19 09:30 67 24 92/42 (59) 100 12/19/19 09:00 24 104/37 Mechanical Ventilator 50 12/19/19 09:00 67 24 104/37 (59) 99 12/19/19 08:46 50 12/19/19 08:40 50 12/19/19 08:30 68 24 99/38 (58) 100 12/19/19 08:00 99.1 70 24 95/36 (55) 99 12/19/19 08:00 Mechanical Ventilator 12/19/19 08:00 24 95/36 Mechanical Ventilator 60 12/19/19 08:00 60 12/19/19 08:00 70 7/8/20 07:30 71 24 94/37 (56) 100 12/19/19 07:05 68 24 60 12/19/19 07:00 70 24 95/37 (56) 100 12/19/19 07:00 24 95/37 Mechanical Ventilator 60 12/19/19 06:30 89 24 12/19/19 06:30 24 96/38 Mechanical Ventilator 60.0 60 12/19/19 06:30 72 24 96/38 (57) 100 12/19/19 06:00 74 24 94/36 (55) 100 12/19/19 06:00 24 94/36 Mechanical Ventilator 60.0 60 12/19/19 05:30 73 24 94/39 (57) 100 12/19/19 05:30 24 94/39 Mechanical Ventilator 60.0 60 12/19/19 05:00 74 24 106/38 (60) 100 12/19/19 05:00 24 106/38 Mechanical Ventilator 60.0 60 12/19/19 04:30 76 24 97/44 (61) 100 12/19/19 04:00 73 12/19/19 04:00 23 124/43 Mechanical Ventilator 60.0 60 12/19/19 04:00 60 12/19/19 04:00 Mechanical Ventilator 12/19/19 04:00 98.6 78 23 98/44 (62) 97 12/19/19 03:30 73 24 98/44 (62) 96 12/19/19 03:09 73 24 60 12/19/19 03:00 24 114/41 Mechanical Ventilator 60.0 60 12/19/19 03:00 74 24 114/41 (65) 96 12/19/19 02:30 74 25 98/38 (58) 95 12/19/19 02:00 75 25 91/67 (75) 100 12/19/19 02:00 24 91/67 Mechanical Ventilator 60.0 60 12/19/19 01:30 23 97/51 Mechanical Ventilator 60.0 60 12/19/19 01:30 75 23 97/51 (66) 99 12/19/19 01:00 23 90/44 Mechanical Ventilator 60.0 60 12/19/19 01:00 76 25 90/44 (59) 99 12/19/19 00:45 23 94/59 Mechanical Ventilator 60.0 60 12/19/19 00:30 78 23 95/38 (57) 100 7/8/20 00:30 23 95/38 Mechanical Ventilator 60.0 60 12/19/19 00:15 21 106/78 Mechanical Ventilator 60.0 60 12/19/19 00:00 98.7 85 25 124/99 (107) 100 12/19/19 00:00 82 12/19/19 00:00 60 12/19/19 00:00 Mechanical Ventilator 12/19/19 00:00 21 124/99 Mechanical Ventilator 60.0 100 12/18/19 23:30 22 107/44 Mechanical Ventilator 60.0 100 12/18/19 23:30 82 22 107/46 (66) 100 12/18/19 23:13 81 26 60 12/18/19 23:00 23 107/46 Mechanical Ventilator 60.0 100 12/18/19 23:00 82 28 107/44 (65) 100 12/18/19 22:30 24 93/39 Non-Rebreather 60.0 100 12/18/19 22:30 86 24 93/39 (57) 100 12/18/19 22:26 80 12/18/19 22:00 98 28 113/50 (71) 93 12/18/19 22:00 24 97/40 Mechanical Ventilator 60.0 100 12/18/19 21:30 24 138/53 Mechanical Ventilator 60.0 100 12/18/19 21:30 105 24 138/53 (81) 93 12/18/19 21:15 26 133/52 Mechanical Ventilator 60.0 100 12/18/19 21:00 115 24 169/72 (104) 98 12/18/19 21:00 24 169/72 Mechanical Ventilator 60.0 100 12/18/19 20:53 25 147/62 Mechanical Ventilator 100 12/18/19 20:45 109 26 100 12/18/19 20:30 120 24 102/51 (68) 98 12/18/19 20:00 108 12/18/19 20:00 Mechanical Ventilator 12/18/19 20:00 98.5 129 24 130/78 (95) 99 12/18/19 20:00 30 12/18/19 19:54 108 20 100 100 12/18/19 19:35 Bi-pap 100 12/18/19 19:00 98 28 113/50 (71) 93 12/18/19 18:00 98 24 112/48 (69) 96 12/18/19 17:00 97 26 115/42 (66) 92 12/18/19 17:00 91 24 30 12/18/19 16:00 30 12/18/19 16:00 Mechanical Ventilator 12/18/19 16:00 76 12/18/19 16:00 98.4 88 25 117/50 (72) 97 12/18/19 16:00 30 12/18/19 15:15 30 12/18/19 15:12 88 22 30 30 12/18/19 15:00 89 15 103/43 (63) 97 12/18/19 14:00 77 15 106/76 (86) 97 12/18/19 13:00 76 20 110/41 (64) 100 Intake and Output 12/18/19 12/19/19 19:00 07:00 Intake Total 1285 ml 1127 ml Output Total 810 ml 395 ml Balance 475 ml 732 ml Intake Free Water 30 ml IV Total 655 ml 627 ml Tube Feeding 600 ml 500 ml Output Urine Total 810 ml 395 ml Laboratory Tests Test 12/18/19 20:21 12/18/19 21:58 12/18/19 23:38 12/19/19 03:00 Arterial Blood pH 7.046 (7.350-7.450) 7.422 (7.350-7.450) Arterial Blood Partial Pressure CO2 141.7 mmHg (35.0-45.0) *H 47.0 mmHg (35.0-45.0) H Arterial Blood Partial Pressure O2 73.4 mmHg (75.0-100.0) L 119.8 mmHg (75.0-100.0) H Arterial Blood HCO3 38.0 mmol/L (22.0-26.0) H 29.9 mmol/L (22.0-26.0) H Arterial Blood Oxygen Saturation 87.0 % (95-100) *L 98.3 % (95-100) Arterial Blood Base Excess 3.5 (-2-2) H 4.8 (-2-2) H Raphael Test Positive Positive POC Whole Blood Glucose Pending White Blood Count 7.5 K/UL (4.8-10.8) Red Blood Count 2.97 M/UL (4.20-5.40) L Hemoglobin 9.6 G/DL (12.0-16.0) L Hematocrit 30.8 % (37.0-47.0) L Mean Corpuscular Volume 104 FL (80-99) H Mean Corpuscular Hemoglobin 32.1 PG (27.0-31.0) H Mean Corpuscular Hemoglobin Concent 31.1 G/DL (32.0-36.0) L Red Cell Distribution Width 13.2 % (11.6-14.8) Platelet Count 155 K/UL (150-450) Mean Platelet Volume 6.2 FL (6.5-10.1) L Neutrophils (%) (Auto) 72.0 % (45.0-75.0) Lymphocytes (%) (Auto) 15.4 % (20.0-45.0) L Monocytes (%) (Auto) 9.2 % (1.0-10.0) Eosinophils (%) (Auto) 2.6 % (0.0-3.0) Basophils (%) (Auto) 0.9 % (0.0-2.0) Sodium Level 149 MMOL/L (136-145) H Potassium Level 4.4 MMOL/L (3.5-5.1) Chloride Level 110 MMOL/L (98-107) H Carbon Dioxide Level 31 MMOL/L (21-32) Anion Gap 8 mmol/L (5-15) Blood Urea Nitrogen 22 mg/dL (7-18) H Creatinine 1.0 MG/DL (0.55-1.30) Estimat Glomerular Filtration Rate 53.3 mL/min (>60) Glucose Level 82 MG/DL (74-106) Calcium Level 8.3 MG/DL (8.5-10.1) L Total Bilirubin 0.8 MG/DL (0.2-1.0) Aspartate Amino Transf (AST/SGOT) 19 U/L (15-37) Alanine Aminotransferase (ALT/SGPT) 38 U/L (12-78) Alkaline Phosphatase 36 U/L (46-116) L Total Protein 5.8 G/DL (6.4-8.2) L Albumin 3.0 G/DL (3.4-5.0) L Globulin 2.8 g/dL Albumin/Globulin Ratio 1.1 (1.0-2.7) Test 12/19/19 05:24 12/19/19 08:32 POC Whole Blood Glucose Pending Arterial Blood pH 7.567 (7.350-7.450) Arterial Blood Partial Pressure CO2 35.0 mmHg (35.0-45.0) Arterial Blood Partial Pressure O2 71.7 mmHg (75.0-100.0) L Arterial Blood HCO3 31.1 mmol/L (22.0-26.0) H Arterial Blood Oxygen Saturation 95.4 % (95-100) Arterial Blood Base Excess 8.6 (-2-2) H Raphael Test Positive Objective HEAD AND NECK: She is orally intubated with no JVD. LUNGS: Coarse rhonchi. CARDIOVASCULAR: Shows regular S1 and S2 and tachycardic. ABDOMEN: Soft. EXTREMITIES: No pitting edema. Cameron Davies MD Dec 19, 2019 12:57
--- NOTE | 2019-12-19 14:00 | NUR ---
NURSE NOTES: Pt repositioned, no distress noted. Will continue to monitor.
[2019-12-19] MEDS: Piperacillin/Tazobactam 3.375 GM in NS 110 ML IVPB SCH ×2 (14:43→21:39)
--- NOTE | 2019-12-19 16:00 | NUR ---
NURSE NOTES: Pt repositioned, oral care provided, pt afebrile, remains with RASS score of -2 at this time, makes eye contact to verbal stimulus for approx. 6 sec, no distress noted at this time. Will continue to monitor.
[2019-12-19] MEDS ORDERED: Tubing IV Secondary IV ONE (16:54)
[2019-12-19] MEDS ORDERED: NS 275ml ONE (16:54)
[2019-12-19] MEDS: Lactulose 20gm/30ml UDC GT SCH (17:12)
--- NOTE | 2019-12-19 18:00 | NUR ---
NURSE NOTES: Pt repositioned and endotracheally suctioned, no distress noted. Will continue to monitor.
--- NOTE | 2019-12-19 19:10 | NUR ---
NURSE NOTES: Small amount of red blood noted in oral cavity and when aspirating gastric secretions from OGT - left message for Dr Vidal. Endorsed to DARREL Singer. Pt in no acute distress.
--- NOTE | 2019-12-19 19:45 | NUR ---
NURSE NOTES: PATIENT RESPONSE TO TACTILE STIMULI, ON ETT TO VENT, AC 12/TV450/FIO2 60%/PEEP5, O2 SATURATION OVER 93% NOTED, HR 70/MIN 1ST DEGREE AVB, ABDOMEN SOFT, NON TENDER, OGT INTACT AND PATENT, ONGOING VITAL AF 1.2 AT 50ML/HR, NO RESIDUE NOTED, KEPT HOB 30 DEGREES AND ASPIRATION PRECAUTION, SMALL BLOODY DISCHARGE IN THE MOUTH, ORAL CARE WAS DONE, NO N/V NOTED, F/C INTACT AND PATENT, YELLOW URINE OUTED GRAVITY, 2 POINT SOFT RESTRAINTS, PPL TO RIGHT WRIST AND LEFT FA, INTACT AND PATENT, ONGOING FENTANYL 100MCG/HR VIA LEFT FA PPL AND IV FLUID NS AT 50ML/HR VIA RIGHT WRIST PPL, ON P200 BED, ON BED ALARM AND LOCKED, MADE LOWER BED POSITION, WILL CONTINUE TO MONITOR.
[2019-12-19] MEDS: Miralax 17gm pkt GT SCH (20:53)
[2019-12-19] MEDS: fentaNYL 2500mcg/NS 250ml 250 ML IV SCH (20:56)
--- NOTE | 2019-12-19 21:52 | NUR ---
NURSE NOTES: PATIENT OPEN EYES TO NAME, ON FENTANYL DRIP 100MCG/HR, RASS SCORE -1, NO BLEEDING FROM MOUTH AT THIS TIME, WILL CONTINUE PLAN OF CARE.
--- NOTE | 2019-12-19 22:01 | General Progress Note ---
Assessment/Plan Problem List: (1) Dyspnea ICD Codes: R06.00 - Dyspnea, unspecified SNOMED: 653102171 (2) Hypothyroidism ICD Codes: E03.9 - Hypothyroidism, unspecified SNOMED: 48082208 (3) Obese ICD Codes: E66.9 - Obesity, unspecified SNOMED: 758805448, 148786815 (4) Psychosis ICD Codes: F29 - Unspecified psychosis not due to a substance or known physiological condition SNOMED: 10422598 (5) Respiratory failure ICD Codes: J96.90 - Respiratory failure, unspecified, unspecified whether with hypoxia or hypercapnia SNOMED: 944704889 (6) Respiratory distress ICD Codes: R06.03 - Acute respiratory distress SNOMED: 561245825 (7) Dyspnea ICD Codes: R06.00 - Dyspnea, unspecified SNOMED: 386586134 (8) Pneumonia ICD Codes: J18.9 - Pneumonia, unspecified organism SNOMED: 229565322 (9) Acute and chronic respiratory failure ICD Codes: J96.20 - Acute and chronic respiratory failure, unspecified whether with hypoxia or hypercapnia SNOMED: 89271752 (10) Diabetes mellitus type 2 in nonobese ICD Codes: E11.9 - Type 2 diabetes mellitus without complications SNOMED: 573785901 (11) CHF (congestive heart failure) ICD Codes: I50.9 - Heart failure, unspecified SNOMED: 08625339 Qualifiers: Qualified Codes: I50.9 - Heart failure, unspecified (12) Hypoxia ICD Codes: R09.02 - Hypoxemia SNOMED: 393720450 (13) Elevated d-dimer ICD Codes: R79.89 - Other specified abnormal findings of blood chemistry SNOMED: 409513884 (14) Schizophrenia ICD Codes: F20.9 - Schizophrenia, unspecified SNOMED: 15786573 (15) Parkinson disease ICD Codes: G20 - Parkinson's disease SNOMED: 05283275 Status: progressing Assessment/Plan: was self extubated and reintubated unable to tolerate extubation afebrile not on pressor pna chf needs fluid management covid negative pleural effusion mrsa of nares Subjective ROS Limited/Unobtainable: Yes Allergies: Coded Allergies: LITHIUM (Verified Allergy, Unknown, 02/07/19) Objective Last 24 Hour Vital Signs Date Time Temp Pulse Resp B/P (MAP) Pulse Ox O2 Delivery O2 Flow Rate FiO2 7/8/20 20:56 19 101/42 Mechanical Ventilator 40 12/19/19 19:58 70 21 40 12/19/19 19:00 67 18 113/46 (68) 95 12/19/19 19:00 12 113/46 Mechanical Ventilator 40 12/19/19 18:00 12 102/40 Mechanical Ventilator 40 12/19/19 18:00 66 18 102/40 (60) 97 12/19/19 17:30 67 18 104/40 (61) 99 12/19/19 17:00 65 17 105/40 (61) 100 12/19/19 17:00 12 105/40 Mechanical Ventilator 40 12/19/19 16:30 66 17 106/42 (63) 100 12/19/19 16:00 Mechanical Ventilator 12/19/19 16:00 12 107/41 Mechanical Ventilator 40 12/19/19 16:00 66 12/19/19 16:00 98.5 67 17 107/41 (63) 100 12/19/19 16:00 40 12/19/19 15:30 66 17 101/41 (61) 100 12/19/19 15:15 68 19 40 12/19/19 15:00 12 105/42 Mechanical Ventilator 40 12/19/19 15:00 67 17 105/42 (63) 100 12/19/19 14:30 68 18 106/41 (62) 100 12/19/19 14:00 18 103/39 Mechanical Ventilator 40 12/19/19 14:00 66 18 103/39 (60) 100 12/19/19 13:30 69 18 100/40 (60) 98 12/19/19 13:00 72 17 105/44 (64) 99 12/19/19 13:00 12 105/44 Mechanical Ventilator 40 12/19/19 12:30 76 13 111/44 (66) 95 12/19/19 12:00 97.5 74 12 105/41 (62) 100 12/19/19 12:00 40 12/19/19 12:00 75 12/19/19 12:00 12 105/41 Mechanical Ventilator 40 12/19/19 12:00 Mechanical Ventilator 12/19/19 11:47 40 12/19/19 11:44 72 12 40 12/19/19 11:30 70 13 101/40 (60) 100 12/19/19 11:00 14 100/39 Mechanical Ventilator 50 12/19/19 11:00 70 14 100/39 (59) 100 12/19/19 10:30 68 12 99/37 (57) 100 12/19/19 10:30 50 720 10:00 67 24 100/37 (58) 100 12/19/19 10:00 24 100/37 Mechanical Ventilator 50 12/19/19 09:30 67 24 92/42 (59) 100 12/19/19 09:00 24 104/37 Mechanical Ventilator 50 12/19/19 09:00 67 24 104/37 (59) 99 12/19/19 08:46 50 12/19/19 08:40 50 12/19/19 08:30 68 24 99/38 (58) 100 12/19/19 08:00 99.1 70 24 95/36 (55) 99 12/19/19 08:00 Mechanical Ventilator 12/19/19 08:00 24 95/36 Mechanical Ventilator 60 12/19/19 08:00 60 12/19/19 08:00 70 12/19/19 07:30 71 24 94/37 (56) 100 12/19/19 07:05 68 24 60 12/19/19 07:00 70 24 95/37 (56) 100 12/19/19 07:00 24 95/37 Mechanical Ventilator 60 12/19/19 06:30 89 24 12/19/19 06:30 24 96/38 Mechanical Ventilator 60.0 60 12/19/19 06:30 72 24 96/38 (57) 100 12/19/19 06:00 74 24 94/36 (55) 100 12/19/19 06:00 24 94/36 Mechanical Ventilator 60.0 60 12/19/19 05:30 73 24 94/39 (57) 100 12/19/19 05:30 24 94/39 Mechanical Ventilator 60.0 60 12/19/19 05:00 74 24 106/38 (60) 100 12/19/19 05:00 24 106/38 Mechanical Ventilator 60.0 60 12/19/19 04:30 76 24 97/44 (61) 100 12/19/19 04:00 73 12/19/19 04:00 23 124/43 Mechanical Ventilator 60.0 60 12/19/19 04:00 60 12/19/19 04:00 Mechanical Ventilator 12/19/19 04:00 98.6 78 23 98/44 (62) 97 12/19/19 03:30 73 24 98/44 (62) 96 12/19/19 03:09 73 24 60 12/19/19 03:00 24 114/41 Mechanical Ventilator 60.0 60 12/19/19 03:00 74 24 114/41 (65) 96 12/19/19 02:30 74 25 98/38 (58) 95 12/19/19 02:00 75 25 91/67 (75) 100 12/19/19 02:00 24 91/67 Mechanical Ventilator 60.0 60 12/19/19 01:30 23 97/51 Mechanical Ventilator 60.0 60 12/19/19 01:30 75 23 97/51 (66) 99 12/19/19 01:00 23 90/44 Mechanical Ventilator 60.0 60 12/19/19 01:00 76 25 90/44 (59) 99 12/19/19 00:45 23 94/59 Mechanical Ventilator 60.0 60 12/19/19 00:30 78 23 95/38 (57) 100 12/19/19 00:30 23 95/38 Mechanical Ventilator 60.0 60 12/19/19 00:15 21 106/78 Mechanical Ventilator 60.0 60 12/19/19 00:00 98.7 85 25 124/99 (107) 100 12/19/19 00:00 82 12/19/19 00:00 60 12/19/19 00:00 Mechanical Ventilator 12/19/19 00:00 21 124/99 Mechanical Ventilator 60.0 100 12/18/19 23:30 22 107/44 Mechanical Ventilator 60.0 100 12/18/19 23:30 82 22 107/46 (66) 100 12/18/19 23:13 81 26 60 12/18/19 23:00 23 107/46 Mechanical Ventilator 60.0 100 12/18/19 23:00 82 28 107/44 (65) 100 12/18/19 22:30 24 93/39 Non-Rebreather 60.0 100 12/18/19 22:30 86 24 93/39 (57) 100 12/18/19 22:26 80 12/18/19 22:00 98 28 113/50 (71) 93 12/18/19 22:00 24 97/40 Mechanical Ventilator 60.0 100 Intake and Output 12/18/19 12/19/19 19:00 07:00 Intake Total 1285 ml 1127 ml Output Total 810 ml 395 ml Balance 475 ml 732 ml Intake Free Water 30 ml IV Total 655 ml 627 ml Tube Feeding 600 ml 500 ml Output Urine Total 810 ml 395 ml Laboratory Tests 12/18/19 23:38: POC Whole Blood Glucose [Pending] 12/19/19 03:00: White Blood Count 7.5, Red Blood Count 2.97L, Hemoglobin 9.6L, Hematocrit 30.8L , Mean Corpuscular Volume 104H, Mean Corpuscular Hemoglobin 32.1H, Mean Corpuscular Hemoglobin Concent 31.1L, Red Cell Distribution Width 13.2, Platelet Count 155, Mean Platelet Volume 6.2L, Neutrophils (%) (Auto) 72.0, Lymphocytes (%) (Auto) 15.4L, Monocytes (%) (Auto) 9.2, Eosinophils (%) (Auto) 2.6, Basophils (%) (Auto) 0.9, Sodium Level 149H, Potassium Level 4.4, Chloride Level 110H, Carbon Dioxide Level 31, Anion Gap 8, Blood Urea Nitrogen 22H, Creatinine 1.0, Estimat Glomerular Filtration Rate 53.3, Glucose Level 82, Calcium Level 8.3L, Total Bilirubin 0.8, Aspartate Amino Transf (AST/SGOT) 19, Alanine Aminotransferase (ALT/SGPT) 38, Alkaline Phosphatase 36L, Total Protein 5.8L, Albumin 3.0L, Globulin 2.8, Albumin/Globulin Ratio 1.1 12/19/19 05:24: POC Whole Blood Glucose [Pending] 12/19/19 08:32: Arterial Blood pH 7.567*H, Arterial Blood Partial Pressure CO2 35.0, Arterial Blood Partial Pressure O2 71.7L, Arterial Blood HCO3 31.1H, Arterial Blood Oxygen Saturation 95.4, Arterial Blood Base Excess 8.6H, Raphael Test Positive Height (Feet): 5 Height (Inches): 7.00 Weight (Pounds): 211 Dani Perera MD Dec 19, 2019 22:00
--- NOTE | 2019-12-19 23:56 | NUR ---
NURSE NOTES: REPOSITIONED, ORAL CARE WAS DONE, TOLERATED OGT FEEDING STATUS, KEPT OVER HOB 30 DEGREES AND ASPIRATION PRECAUTION, WILL CONTINUE PLAN OF CARE.
[2019-12-20] VITALS (42 sets, daily range): BP systolic 93–133; BP diastolic 39–63
--- NOTE | 2019-12-20 01:58 | NUR ---
NURSE NOTES: VSS, NO DISTRESS NOTED AT THIS TIME.
--- NOTE | 2019-12-20 04:10 | NUR ---
NURSE NOTES: MORNING CARE AND ORAL CARE WAS DONE, NO BM STATUS.
[2019-12-20 05:28] LABS: HEMATOCRIT 30.4 % (37.0-47.0); HEMOGLOBIN 9.5 G/DL (12.0-16.0); MEAN CORPUSCULAR VOLUME 103 FL (80-99); PLATELET COUNT 179 K/UL (150-450); RED BLOOD COUNT 2.95 M/UL (4.20-5.40); RED CELL DISTRIBUTION WIDTH 13.4 % (11.6-14.8); WHITE BLOOD COUNT 6.7 K/UL (4.8-10.8)
[2019-12-20] MEDS: Piperacillin/Tazobactam 3.375 GM in NS 110 ML IVPB SCH ×3 (05:30→21:30)
[2019-12-20] MEDS: Solu-MEDROL 40mg Inj IVP SCH ×4 (05:30→23:32)
[2019-12-20] MEDS: NovoLOG Insulin Flexpen SUBQ SCH ×4 (05:31→23:33)
[2019-12-20 05:46] LABS: ANION GAP 8 mmol/L (5-15); BLOOD UREA NITROGEN 31 mg/dL (7-18); CALCIUM 8.2 MG/DL (8.5-10.1); CARBON DIOXIDE 31 MMOL/L (21-32); CHLORIDE 111 MMOL/L (98-107); CREATININE 1.1 MG/DL (0.55-1.30); POTASSIUM 4.1 MMOL/L (3.5-5.1); SODIUM 150 MMOL/L (136-145)
--- NOTE | 2019-12-20 06:20 | NUR ---
NURSE NOTES: NO ACUTE DISTRESS NOTED AT THIS SHIFT.
--- NOTE | 2019-12-20 07:02 | NUR ---
HAND-OFF: Report given to DARREL DUNNE.
--- NOTE | 2019-12-20 07:03 | NUR ---
NURSE NOTES: Received patient from Enmanuel RN, patient is sedated RASS -2. Sinus Rhythm on the heart monitor HR 68. Receiving oxygen via ET Tube 7.5 24cm at the lip line, vent settings: AC 12, TV 450, FiO2 50%, PEEP 5. OGT is intact and receiving Vital AF 1.2 at 50cc/hr. IV site is Right wrist 22g receiving NS at 50cc/hr, Left Forearm 22g receiving Fentanyl at 100mcg/hr. Ace catheter is intact and draining. Bed is locked, placed in lowest position, side rails up x3, bed alarm on, head of bed elevated, call light within reach. Will continue monitor.
[2019-12-20] MEDS: Depakote 125mg Sprinkles NG SCH ×2 (08:09→20:37)
[2019-12-20] MEDS: Amantadine 100mg cap GT SCH ×2 (08:09→17:34)
[2019-12-20] MEDS: Docusate 100mg/10ml Liq NG SCH ×2 (08:10→17:34)
[2019-12-20] MEDS: Phospha 250 Neutral tab GT SCH ×3 (08:10→17:34)
[2019-12-20] MEDS: Pantoprazole Inj IVP SCH ×2 (08:10→20:36)
[2019-12-20] MEDS: Lactulose 20gm/30ml UDC GT SCH ×2 (08:10→17:34)
[2019-12-20] MEDS: Os-Cal (Oyster Shell) 500mg tab GT SCH ×3 (08:11→17:34)
[2019-12-20] MEDS: Aspirin EC 325mg tab ORAL SCH (08:11)
--- NOTE | 2019-12-20 08:33 | NUR ---
NURSE NOTES: Gave medications as prescribed, no adverse reactions noted. Patient remains sedated RASS -1, patient is drowsy and easily awaken, able to follow commands, and denies any pain. Turned and repositioned patient, no signs of acute distress, patient is afebrile. Will continue to monitor.
--- NOTE | 2019-12-20 09:14 | Infectious Diseases Prog Note ---
Assessment/Plan Assessment/Plan IMPRESSION: COPD exacerbation, Pneumonia, COID19 X 2: negative Acute respiratory failure with hypercapnia Dementia, Parkinson, Mitral valve regurgitation, Hypertension, Hypothyroidism. Hypokalemia RECOMMENDATION: Change Julieta Case was D/W RN Subjective ROS Limited/Unobtainable: Yes Constitutional: Denies: fever Allergies: Coded Allergies: LITHIUM (Verified Allergy, Unknown, 02/07/19) Objective Last 24 Hour Vital Signs Date Time Temp Pulse Resp B/P (MAP) Pulse Ox O2 Delivery O2 Flow Rate FiO2 12/20/19 09:00 80 14 118/49 (72) 92 12/20/19 08:30 76 18 110/44 (66) 94 12/20/19 08:09 80 12/20/19 08:00 Mechanical Ventilator 12/20/19 08:00 98.5 78 19 121/48 (72) 97 12/20/19 08:00 40 12/20/19 07:00 17 110/41 Mechanical Ventilator 50 12/20/19 07:00 68 17 110/41 (64) 98 12/20/19 06:30 69 18 112/43 (66) 94 12/20/19 06:30 69 18 12/20/19 06:00 19 93/63 Mechanical Ventilator 50 12/20/19 06:00 69 19 93/63 (73) 95 12/20/19 05:30 66 18 109/42 (64) 96 12/20/19 05:00 17 108/41 Mechanical Ventilator 50 12/20/19 05:00 67 17 108/41 (63) 97 12/20/19 04:30 68 19 112/43 (66) 95 12/20/19 04:00 Mechanical Ventilator 12/20/19 04:00 98.6 69 18 108/41 (63) 98 12/20/19 04:00 50 12/20/19 04:00 18 108/41 Mechanical Ventilator 50 12/20/19 03:30 71 18 108/42 (64) 97 12/20/19 03:24 74 18 50 12/20/19 03:16 73 12/20/19 03:00 19 125/46 Mechanical Ventilator 50 12/20/19 03:00 77 19 125/46 (72) 97 12/20/19 02:30 71 22 113/44 (67) 100 12/20/19 02:00 64 21 110/40 (63) 99 12/20/19 02:00 21 110/40 Mechanical Ventilator 60 12/20/19 01:30 64 21 104/42 (62) 99 12/20/19 01:00 20 104/40 Mechanical Ventilator 60 12/20/19 01:00 65 20 104/40 (61) 99 12/20/19 00:30 64 20 105/40 (61) 100 12/20/19 00:00 20 104/39 Mechanical Ventilator 60 12/20/19 00:00 97.6 64 20 104/39 (60) 100 12/20/19 00:00 Mechanical Ventilator 12/20/19 00:00 64 12/20/19 00:00 60 12/19/19 23:30 65 20 101/40 (60) 99 12/19/19 23:00 65 20 104/41 (62) 100 12/19/19 23:00 20 104/41 Mechanical Ventilator 60 12/19/19 22:34 71 23 60 12/19/19 22:32 60 12/19/19 22:30 69 19 109/46 (67) 92 12/19/19 22:15 67 19 101/40 (60) 94 12/19/19 22:00 68 18 103/41 (61) 95 12/19/19 22:00 18 103/41 Mechanical Ventilator 40 12/19/19 21:30 67 18 96/47 (63) 92 12/19/19 21:00 67 19 101/43 (62) 95 12/19/19 21:00 19 101/43 Mechanical Ventilator 40 12/19/19 20:56 19 101/42 Mechanical Ventilator 40 12/19/19 20:30 68 19 104/45 (64) 95 12/19/19 20:00 Mechanical Ventilator 12/19/19 20:00 19 98/43 Mechanical Ventilator 40 12/19/19 20:00 40 12/19/19 20:00 98.6 70 19 98/43 (61) 94 12/19/19 19:58 70 21 40 12/19/19 19:51 71 12/19/19 19:00 67 18 113/46 (68) 95 12/19/19 19:00 12 113/46 Mechanical Ventilator 40 12/19/19 18:00 12 102/40 Mechanical Ventilator 40 12/19/19 18:00 66 18 102/40 (60) 97 7/01/30 17:30 67 18 104/40 (61) 99 7/8/20 17:00 65 17 105/40 (61) 100 7/820 17:00 12 105/40 Mechanical Ventilator 40 12/19/19 16:30 66 17 106/42 (63) 100 78 16:00 Mechanical Ventilator 12/19/19 16:00 12 107/41 Mechanical Ventilator 40 12/19/19 16:00 66 7/01/30 16:00 98.5 67 17 107/41 (63) 100 7820 16:00 40 12/19/19 15:30 66 17 101/41 (61) 100 12/19/19 15:15 68 19 40 7 15:00 12 105/42 Mechanical Ventilator 40 12/19/19 15:00 67 17 105/42 (63) 100 12/19/19 14:30 68 18 106/41 (62) 100 12/19/19 14:00 18 103/39 Mechanical Ventilator 40 12/19/19 14:00 66 18 103/39 (60) 100 12/19/19 13:30 69 18 100/40 (60) 98 7 13:00 72 17 105/44 (64) 99 12/19/19 13:00 12 105/44 Mechanical Ventilator 40 12/19/19 12:30 76 13 111/44 (66) 95 12/19/19 12:00 97.5 74 12 105/41 (62) 100 12/19/19 12:00 40 12/19/19 12:00 75 12/19/19 12:00 12 105/41 Mechanical Ventilator 40 12/19/19 12:00 Mechanical Ventilator 12/19/19 11:47 40 12/19/19 11:44 72 12 40 12/19/19 11:30 70 13 101/40 (60) 100 12/19/19 11:00 14 100/39 Mechanical Ventilator 50 12/19/19 11:00 70 14 100/39 (59) 100 12/19/19 10:30 68 12 99/37 (57) 100 12/19/19 10:30 50 12/19/19 10:00 67 24 100/37 (58) 100 12/19/19 10:00 24 100/37 Mechanical Ventilator 50 12/19/19 09:30 67 24 92/42 (59) 100 Height (Feet): 5 Height (Inches): 7.00 Weight (Pounds): 217 HEENT: other - orally intubated Respiratory/Chest: lungs clear, other - on ventilator Cardiovascular: normal rate Abdomen: soft, non tender Extremities: other - hands edema Neurologic/Psychiatric: other - sedated Laboratory Tests Test 12/19/19 23:16 12/20/19 04:20 12/20/19 05:22 12/20/19 08:09 POC Whole Blood Glucose 158 MG/DL (74-106) H 141 MG/DL (74-106) H White Blood Count 6.7 K/UL (4.8-10.8) Red Blood Count 2.95 M/UL (4.20-5.40) L Hemoglobin 9.5 G/DL (12.0-16.0) L Hematocrit 30.4 % (37.0-47.0) L Mean Corpuscular Volume 103 FL (80-99) H Mean Corpuscular Hemoglobin 32.2 PG (27.0-31.0) H Mean Corpuscular Hemoglobin Concent 31.2 G/DL (32.0-36.0) L Red Cell Distribution Width 13.4 % (11.6-14.8) Platelet Count 179 K/UL (150-450) Mean Platelet Volume 7.0 FL (6.5-10.1) Neutrophils (%) (Auto) % (45.0-75.0) Lymphocytes (%) (Auto) % (20.0-45.0) Monocytes (%) (Auto) % (1.0-10.0) Eosinophils (%) (Auto) % (0.0-3.0) Basophils (%) (Auto) % (0.0-2.0) Sodium Level 150 MMOL/L (136-145) H Potassium Level 4.1 MMOL/L (3.5-5.1) Chloride Level 111 MMOL/L (98-107) H Carbon Dioxide Level 31 MMOL/L (21-32) Anion Gap 8 mmol/L (5-15) Blood Urea Nitrogen 31 mg/dL (7-18) H Creatinine 1.1 MG/DL (0.55-1.30) Estimat Glomerular Filtration Rate 47.8 mL/min (>60) Glucose Level 144 MG/DL (74-106) H Calcium Level 8.2 MG/DL (8.5-10.1) L Arterial Blood pH 7.408 (7.350-7.450) Arterial Blood Partial Pressure CO2 52.7 mmHg (35.0-45.0) H Arterial Blood Partial Pressure O2 79.4 mmHg (75.0-100.0) Arterial Blood HCO3 32.5 mmol/L (22.0-26.0) H Arterial Blood Oxygen Saturation 94.6 % (95-100) L Arterial Blood Base Excess 6.7 (-2-2) H Raphael Test Positive Current Medications Medications (Trade) Dose Ordered Sig/Angie Route PRN Reason Start Time Stop Time Status Last Admin Dose Admin Acetaminophen (Tylenol) 650 mg Q6H PRN ORAL Mild Pain (Pain Scale 1-3) 12/12/19 12:30 01/11/20 12:29 Acetaminophen (Tylenol) 1,000 mg Q6H PRN ORAL MODERATE PAIN 12/12/19 12:30 01/11/20 12:29 Amantadine HCl (Symmetrel) 100 mg TWICE A DAY GT 12/15/19 18:00 01/11/20 08:59 12/20/19 08:09 Aspirin (Ecotrin) 325 mg DAILY ORAL 12/13/19 09:00 01/26/20 08:59 12/20/19 08:11 Atorvastatin Calcium (Lipitor) 10 mg BEDTIME GT 12/15/19 21:00 03/11/20 20:59 12/19/19 20:54 Calcium Carbonate (Os-Octavio) 1,250 mg THREE TIMES A DAY GT 12/15/19 18:00 03/11/20 09:59 12/20/19 08:11 Clonidine HCl (Catapres Tab) 0.1 mg Q6H PRN GT For high BP over 160 systolic 12/15/19 16:30 03/11/20 12:30 Dextrose (Dextrose 50%) 25 ml Q30M PRN IV Hypoglycemia 12/13/19 07:15 03/12/20 07:14 Dextrose (Dextrose 50%) 50 ml Q30M PRN IV Hypoglycemia 12/13/19 07:15 03/12/20 07:14 Divalproex Sodium (Depakote Sprinkles) 250 mg EVERY 12 HOURS NG 12/13/19 21:00 01/12/20 20:59 12/20/19 08:09 Docusate Sodium (Colace) 100 mg TWICE A DAY NG 12/15/19 18:00 01/14/20 17:59 12/20/19 08:10 Fentanyl Citrate 250 ml @ 0 mls/hr Q24H IV 12/18/19 20:53 03/17/20 20:52 12/19/19 20:56 Haloperidol Lactate 5 mg/ Dextrose 56 ml @ 224 mls/hr Q6H PRN IVPB agitation 12/18/19 10:45 02/01/20 10:44 Insulin Aspart (NovoLOG) EVERY 6 HOURS SUBQ 12/13/19 12:00 03/12/20 11:59 12/20/19 05:31 Lactulose (Cephulac) 20 gm BID GT 12/19/19 18:00 01/18/20 17:59 12/20/19 08:10 Levothyroxine Sodium (Synthroid) 75 mcg DAILY IV 12/13/19 09:00 01/11/20 09:29 12/20/19 08:10 Methylprednisolone Sodium Succinate (Solu-MEDROL) 40 mg EVERY 6 HOURS IVP 12/19/19 12:00 03/18/20 11:59 12/20/19 05:30 Nitroglycerin (Ntg) 0.4 mg Q5MIN X 3 DOSES PRN SL CHEST PAIN 12/12/19 12:00 01/10/20 21:44 Olanzapine (ZyPREXA) 5 mg BID GT 12/15/19 18:00 01/26/20 08:59 12/20/19 08:11 Pantoprazole (Protonix) 40 mg EVERY 12 HOURS IVP 12/14/19 09:00 01/13/20 08:59 12/20/19 08:10 Phosphorus (Phospha 250 Neutral) 250 mg THREE TIMES A DAY GT 12/15/19 09:00 01/14/20 08:59 12/20/19 08:10 Piperacillin Sod/ Tazobactam Sod 3.375 gm/Sodium Chloride 110 ml @ 27.5 mls/hr EVERY 8 HOURS IVPB 12/19/19 14:00 12/24/19 13:59 12/20/19 05:30 Polyethylene Glycol (Miralax) 17 gm BEDTIME GT 12/19/19 21:00 01/18/20 20:59 12/19/19 20:53 Sodium Chloride 1,000 ml @ 50 mls/hr Q20H IV 12/12/19 12:30 01/11/20 12:29 12/20/19 00:52 Lei Chan MD Dec 20, 2019 09:14
--- NOTE | 2019-12-20 10:03 | NUR ---
NURSE NOTES: Patient desaturated to 88%, placed ventilator on 100% and did endotracheal suctioning. Dry blood secretion removed and patient's O2 saturation increased from 92%-96%. Patient remains drowsy RASS -1. Will continue to monitor.
--- NOTE | 2019-12-20 10:09 | NUR ---
NURSE NOTES: Patient seen and assessed by Dr. Ochoa.
--- NOTE | 2019-12-20 10:17 | NUR ---
NURSE NOTES: Patient seen and assessed by Dr. Myers, informed him of ABG results, informed to continue to weening for patient per protocol. Addendum: 12/20/19 at 1112 by Imer Vivas RN NURSE NOTES: Patient seen and assessed by Dr. Myers, informed him of ABG results, informed to continue weaning for patient per protocol.
--- NOTE | 2019-12-20 10:18 | Hematology/Onc Progress Note ---
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 ( combination of moderate aortic regurgitation and severe mitral regurgitation) --> diuresis as per cards --> lasix last time # Severe ascending aortic dilatation --> per Dr eKke campbell # Hypertension # Parkinson disease # Hyperlipidemia # Hypothyroidism # Dementia # Obesity # Schizophrenia --> as per Farhadi --> restraints # Dvt ppx lovenox sq/scd's Appreciate admissions consultant care and alexei Cueva Subjective Allergies: Coded Allergies: LITHIUM (Verified Allergy, Unknown, 02/07/19) All Systems: reviewed and negative except above Subjective / labs are reviewed, intubated, with og, somewhat responsive, alexei rn 7/ labs noted, hgb 7.8, tfs ok to start per gi 12/15 icu, restraints, no acute events, hep panel negative, sedated 12/16 no bleeding, in the icu, on abx, in restarints, sleepy, vent 12/17 is on vent, also is on abx, awake, with ogt 7/8 ng placed, hgb 9.6, no bleeding, no night sweats 12/19 labs reviewed, sedated, on vent, nob leeding, meds reviewed Objective Objective Current Medications Medications (Trade) Dose Ordered Sig/Angie Route PRN Reason Start Time Stop Time Status Last Admin Dose Admin Acetaminophen (Tylenol) 650 mg Q6H PRN ORAL Mild Pain (Pain Scale 1-3) 12/12/19 12:30 01/11/20 12:29 Acetaminophen (Tylenol) 1,000 mg Q6H PRN ORAL MODERATE PAIN 12/12/19 12:30 01/11/20 12:29 Amantadine HCl (Symmetrel) 100 mg TWICE A DAY GT 12/15/19 18:00 01/11/20 08:59 12/20/19 08:09 Aspirin (Ecotrin) 325 mg DAILY ORAL 12/13/19 09:00 01/26/20 08:59 12/20/19 08:11 Atorvastatin Calcium (Lipitor) 10 mg BEDTIME GT 12/15/19 21:00 03/11/20 20:59 12/19/19 20:54 Calcium Carbonate (Os-Octavio) 1,250 mg THREE TIMES A DAY GT 12/15/19 18:00 03/11/20 09:59 12/20/19 08:11 Clonidine HCl (Catapres Tab) 0.1 mg Q6H PRN GT For high BP over 160 systolic 12/15/19 16:30 03/11/20 12:30 Dextrose (Dextrose 50%) 25 ml Q30M PRN IV Hypoglycemia 12/13/19 07:15 03/12/20 07:14 Dextrose (Dextrose 50%) 50 ml Q30M PRN IV Hypoglycemia 12/13/19 07:15 03/12/20 07:14 Divalproex Sodium (Depakote Sprinkles) 250 mg EVERY 12 HOURS NG 12/13/19 21:00 01/12/20 20:59 12/20/19 08:09 Docusate Sodium (Colace) 100 mg TWICE A DAY NG 12/15/19 18:00 01/14/20 17:59 12/20/19 08:10 Fentanyl Citrate 250 ml @ 0 mls/hr Q24H IV 12/18/19 20:53 03/17/20 20:52 12/19/19 20:56 Haloperidol Lactate 5 mg/ Dextrose 56 ml @ 224 mls/hr Q6H PRN IVPB agitation 12/18/19 10:45 02/01/20 10:44 Insulin Aspart (NovoLOG) EVERY 6 HOURS SUBQ 12/13/19 12:00 03/12/20 11:59 12/20/19 05:31 Lactulose (Cephulac) 20 gm BID GT 12/19/19 18:00 01/18/20 17:59 12/20/19 08:10 Levothyroxine Sodium (Synthroid) 75 mcg DAILY IV 12/13/19 09:00 01/11/20 09:29 12/20/19 08:10 Methylprednisolone Sodium Succinate (Solu-MEDROL) 40 mg EVERY 6 HOURS IVP 12/19/19 12:00 03/18/20 11:59 12/20/19 05:30 Nitroglycerin (Ntg) 0.4 mg Q5MIN X 3 DOSES PRN SL CHEST PAIN 12/12/19 12:00 01/10/20 21:44 Olanzapine (ZyPREXA) 5 mg BID GT 12/15/19 18:00 01/26/20 08:59 12/20/19 08:11 Pantoprazole (Protonix) 40 mg EVERY 12 HOURS IVP 12/14/19 09:00 01/13/20 08:59 12/20/19 08:10 Phosphorus (Phospha 250 Neutral) 250 mg THREE TIMES A DAY GT 12/15/19 09:00 01/14/20 08:59 12/20/19 08:10 Piperacillin Sod/ Tazobactam Sod 3.375 gm/Sodium Chloride 110 ml @ 27.5 mls/hr EVERY 8 HOURS IVPB 12/19/19 14:00 12/24/19 13:59 12/20/19 05:30 Polyethylene Glycol (Miralax) 17 gm BEDTIME GT 12/19/19 21:00 01/18/20 20:59 12/19/19 20:53 Sodium Chloride 1,000 ml @ 50 mls/hr Q20H IV 12/12/19 12:30 01/11/20 12:29 12/20/19 00:52 Last 24 Hour Vital Signs Date Time Temp Pulse Resp B/P (MAP) Pulse Ox O2 Delivery O2 Flow Rate FiO2 12/20/19 10:00 84 21 116/48 (70) 94 12/20/19 10:00 21 116/48 Endotracheal Tube 40 12/20/19 09:30 80 21 116/49 (71) 92 12/20/19 09:00 14 118/49 Endotracheal Tube 40 12/20/19 09:00 80 14 118/49 (72) 92 12/20/19 08:30 76 18 110/44 (66) 94 7/9/20 08:09 80 12/20/19 08:00 Mechanical Ventilator 12/20/19 08:00 18 121/48 Endotracheal Tube 40 12/20/19 08:00 98.5 78 19 121/48 (72) 97 12/20/19 08:00 40 12/20/19 07:12 80 19 50 12/20/19 07:00 17 110/41 Mechanical Ventilator 50 12/20/19 07:00 68 17 110/41 (64) 98 12/20/19 06:30 69 18 112/43 (66) 94 12/20/19 06:30 69 18 12/20/19 06:00 19 93/63 Mechanical Ventilator 50 12/20/19 06:00 69 19 93/63 (73) 95 12/20/19 05:30 66 18 109/42 (64) 96 12/20/19 05:00 17 108/41 Mechanical Ventilator 50 12/20/19 05:00 67 17 108/41 (63) 97 12/20/19 04:30 68 19 112/43 (66) 95 12/20/19 04:00 Mechanical Ventilator 12/20/19 04:00 98.6 69 18 108/41 (63) 98 12/20/19 04:00 50 12/20/19 04:00 18 108/41 Mechanical Ventilator 50 12/20/19 03:30 71 18 108/42 (64) 97 12/20/19 03:24 74 18 50 12/20/19 03:16 73 12/20/19 03:00 19 125/46 Mechanical Ventilator 50 12/20/19 03:00 77 19 125/46 (72) 97 12/20/19 02:30 71 22 113/44 (67) 100 12/20/19 02:00 64 21 110/40 (63) 99 12/20/19 02:00 21 110/40 Mechanical Ventilator 60 12/20/19 01:30 64 21 104/42 (62) 99 12/20/19 01:00 20 104/40 Mechanical Ventilator 60 12/20/19 01:00 65 20 104/40 (61) 99 12/20/19 00:30 64 20 105/40 (61) 100 12/20/19 00:00 20 104/39 Mechanical Ventilator 60 12/20/19 00:00 97.6 64 20 104/39 (60) 100 12/20/19 00:00 Mechanical Ventilator 12/20/19 00:00 64 12/20/19 00:00 60 7/01/30 23:30 65 20 101/40 (60) 99 12/19/19 23:00 65 20 104/41 (62) 100 12/19/19 23:00 20 104/41 Mechanical Ventilator 60 12/19/19 22:34 71 23 60 12/19/19 22:32 60 12/19/19 22:30 69 19 109/46 (67) 92 12/19/19 22:15 67 19 101/40 (60) 94 12/19/19 22:00 68 18 103/41 (61) 95 12/19/19 22:00 18 103/41 Mechanical Ventilator 40 12/19/19 21:30 67 18 96/47 (63) 92 12/19/19 21:00 67 19 101/43 (62) 95 12/19/19 21:00 19 101/43 Mechanical Ventilator 40 12/19/19 20:56 19 101/42 Mechanical Ventilator 40 12/19/19 20:30 68 19 104/45 (64) 95 12/19/19 20:00 Mechanical Ventilator 12/19/19 20:00 19 98/43 Mechanical Ventilator 40 12/19/19 20:00 40 12/19/19 20:00 98.6 70 19 98/43 (61) 94 12/19/19 19:58 70 21 40 12/19/19 19:51 71 12/19/19 19:00 67 18 113/46 (68) 95 12/19/19 19:00 12 113/46 Mechanical Ventilator 40 12/19/19 18:00 12 102/40 Mechanical Ventilator 40 12/19/19 18:00 66 18 102/40 (60) 97 12/19/19 17:30 67 18 104/40 (61) 99 12/19/19 17:00 65 17 105/40 (61) 100 12/19/19 17:00 12 105/40 Mechanical Ventilator 40 12/19/19 16:30 66 17 106/42 (63) 100 12/19/19 16:00 Mechanical Ventilator 12/19/19 16:00 12 107/41 Mechanical Ventilator 40 12/19/19 16:00 66 12/19/19 16:00 98.5 67 17 107/41 (63) 100 7/01/30 16:00 40 7/01/30 15:30 66 17 101/41 (61) 100 12/19/19 15:15 68 19 40 7/01/30 15:00 12 105/42 Mechanical Ventilator 40 12/19/19 15:00 67 17 105/42 (63) 100 12/19/19 14:30 68 18 106/41 (62) 100 12/19/19 14:00 18 103/39 Mechanical Ventilator 40 12/19/19 14:00 66 18 103/39 (60) 100 12/19/19 13:30 69 18 100/40 (60) 98 8 13:00 72 17 105/44 (64) 99 12/19/19 13:00 12 105/44 Mechanical Ventilator 40 12/19/19 12:30 76 13 111/44 (66) 95 12/19/19 12:00 97.5 74 12 105/41 (62) 100 12/19/19 12:00 40 12/19/19 12:00 75 12/19/19 12:00 12 105/41 Mechanical Ventilator 40 12/19/19 12:00 Mechanical Ventilator 12/19/19 11:47 40 12/19/19 11:44 72 12 40 12/19/19 11:30 70 13 101/40 (60) 100 12/19/19 11:00 14 100/39 Mechanical Ventilator 50 12/19/19 11:00 70 14 100/39 (59) 100 12/19/19 10:30 68 12 99/37 (57) 100 12/19/19 10:30 50 12/19/19 10:00 67 24 100/37 (58) 100 12/19/19 10:00 24 100/37 Mechanical Ventilator 50 12/19/19 09:30 67 24 92/42 (59) 100 12/19/19 09:00 24 104/37 Mechanical Ventilator 50 12/19/19 09:00 67 24 104/37 (59) 99 12/19/19 08:46 50 12/19/19 08:40 50 12/19/19 08:30 68 24 99/38 (58) 100 12/19/19 08:00 99.1 70 24 95/36 (55) 99 12/19/19 08:00 Mechanical Ventilator 12/19/19 08:00 24 95/36 Mechanical Ventilator 60 12/19/19 08:00 60 12/19/19 08:00 70 12/19/19 07:30 71 24 94/37 (56) 100 12/19/19 07:05 68 24 60 12/19/19 07:00 70 24 95/37 (56) 100 12/19/19 07:00 24 95/37 Mechanical Ventilator 60 12/19/19 06:30 89 24 12/19/19 06:30 24 96/38 Mechanical Ventilator 60.0 60 12/19/19 06:30 72 24 96/38 (57) 100 12/19/19 06:00 74 24 94/36 (55) 100 12/19/19 06:00 24 94/36 Mechanical Ventilator 60.0 60 12/19/19 05:30 73 24 94/39 (57) 100 12/19/19 05:30 24 94/39 Mechanical Ventilator 60.0 60 12/19/19 05:00 74 24 106/38 (60) 100 12/19/19 05:00 24 106/38 Mechanical Ventilator 60.0 60 12/19/19 04:30 76 24 97/44 (61) 100 12/19/19 04:00 73 12/19/19 04:00 23 124/43 Mechanical Ventilator 60.0 60 12/19/19 04:00 60 12/19/19 04:00 Mechanical Ventilator 12/19/19 04:00 98.6 78 23 98/44 (62) 97 12/19/19 03:30 73 24 98/44 (62) 96 12/19/19 03:09 73 24 60 12/19/19 03:00 24 114/41 Mechanical Ventilator 60.0 60 12/19/19 03:00 74 24 114/41 (65) 96 12/19/19 02:30 74 25 98/38 (58) 95 12/19/19 02:00 75 25 91/67 (75) 100 12/19/19 02:00 24 91/67 Mechanical Ventilator 60.0 60 12/19/19 01:30 23 97/51 Mechanical Ventilator 60.0 60 12/19/19 01:30 75 23 97/51 (66) 99 12/19/19 01:00 23 90/44 Mechanical Ventilator 60.0 60 12/19/19 01:00 76 25 90/44 (59) 99 12/19/19 00:45 23 94/59 Mechanical Ventilator 60.0 60 12/19/19 00:30 78 23 95/38 (57) 100 12/19/19 00:30 23 95/38 Mechanical Ventilator 60.0 60 12/19/19 00:15 21 106/78 Mechanical Ventilator 60.0 60 12/19/19 00:00 98.7 85 25 124/99 (107) 100 12/19/19 00:00 82 12/19/19 00:00 60 12/19/19 00:00 Mechanical Ventilator 12/19/19 00:00 21 124/99 Mechanical Ventilator 60.0 100 12/18/19 23:30 22 107/44 Mechanical Ventilator 60.0 100 12/18/19 23:30 82 22 107/46 (66) 100 12/18/19 23:13 81 26 60 12/18/19 23:00 23 107/46 Mechanical Ventilator 60.0 100 12/18/19 23:00 82 28 107/44 (65) 100 12/18/19 22:30 24 93/39 Non-Rebreather 60.0 100 12/18/19 22:30 86 24 93/39 (57) 100 12/18/19 22:26 80 12/18/19 22:00 98 28 113/50 (71) 93 12/18/19 22:00 24 97/40 Mechanical Ventilator 60.0 100 12/18/19 21:30 24 138/53 Mechanical Ventilator 60.0 100 12/18/19 21:30 105 24 138/53 (81) 93 12/18/19 21:15 26 133/52 Mechanical Ventilator 60.0 100 12/18/19 21:00 115 24 169/72 (104) 98 12/18/19 21:00 24 169/72 Mechanical Ventilator 60.0 100 12/18/19 20:53 25 147/62 Mechanical Ventilator 100 12/18/19 20:45 109 26 100 12/18/19 20:30 120 24 102/51 (68) 98 12/18/19 20:00 108 12/18/19 20:00 Mechanical Ventilator 12/18/19 20:00 98.5 129 24 130/78 (95) 99 12/18/19 20:00 30 12/18/19 19:54 108 20 100 100 12/18/19 19:35 Bi-pap 100 12/18/19 19:00 98 28 113/50 (71) 93 12/18/19 18:00 98 24 112/48 (69) 96 12/18/19 17:00 97 26 115/42 (66) 92 12/18/19 17:00 91 24 30 12/18/19 16:00 30 12/18/19 16:00 Mechanical Ventilator 12/18/19 16:00 76 12/18/19 16:00 98.4 88 25 117/50 (72) 97 12/18/19 16:00 30 12/18/19 15:15 30 12/18/19 15:12 88 22 30 30 12/18/19 15:00 89 15 103/43 (63) 97 12/18/19 14:00 77 15 106/76 (86) 97 12/18/19 13:00 76 20 110/41 (64) 100 12/18/19 12:00 98.6 15 113/47 (69) 98 12/18/19 12:00 30 12/18/19 12:00 76 12/18/19 12:00 Mechanical Ventilator 12/18/19 11:13 76 15 30 12/18/19 11:00 78 20 108/43 (64) 100 Intake and Output 12/19/19 12/20/19 19:00 07:00 Intake Total 1450.0 ml 1551.5 ml Output Total 525 ml 435 ml Balance 925.0 ml 1116.5 ml Intake Free Water 30 ml IV Total 820.0 ml 871.5 ml Tube Feeding 600 ml 600 ml Other 80 ml Output Urine Total 525 ml 435 ml Labs Test 12/17/19 11:41 12/17/19 12:10 12/17/19 17:13 12/18/19 00:04 POC Whole Blood Glucose 117 MG/DL (74-106) 98 MG/DL (74-106) 97 MG/DL (74-106) Arterial Blood pH 7.316 (7.350-7.450) Arterial Blood Partial Pressure CO2 74.0 mmHg (35.0-45.0) Arterial Blood Partial Pressure O2 62.2 mmHg (75.0-100.0) Arterial Blood HCO3 36.9 mmol/L (22.0-26.0) Arterial Blood Oxygen Saturation 89.0 % (95-100) Arterial Blood Base Excess 8.5 (-2-2) Raphael Test Positive Test 12/18/19 04:00 12/18/19 06:05 12/18/19 20:21 12/18/19 21:58 White Blood Count 6.4 K/UL (4.8-10.8) Red Blood Count 3.17 M/UL (4.20-5.40) Hemoglobin 10.2 G/DL (12.0-16.0) Hematocrit 33.2 % (37.0-47.0) Mean Corpuscular Volume 105 FL (80-99) Mean Corpuscular Hemoglobin 32.1 PG (27.0-31.0) Mean Corpuscular Hemoglobin Concent 30.7 G/DL (32.0-36.0) Red Cell Distribution Width 13.5 % (11.6-14.8) Platelet Count 157 K/UL (150-450) Mean Platelet Volume 6.8 FL (6.5-10.1) Neutrophils (%) (Auto) 65.2 % (45.0-75.0) Lymphocytes (%) (Auto) 19.6 % (20.0-45.0) Monocytes (%) (Auto) 10.3 % (1.0-10.0) Eosinophils (%) (Auto) 3.8 % (0.0-3.0) Basophils (%) (Auto) 1.1 % (0.0-2.0) Sodium Level 148 MMOL/L (136-145) Potassium Level 4.3 MMOL/L (3.5-5.1) Chloride Level 110 MMOL/L (98-107) Carbon Dioxide Level 31 MMOL/L (21-32) Anion Gap 7 mmol/L (5-15) Blood Urea Nitrogen 24 mg/dL (7-18) Creatinine 0.9 MG/DL (0.55-1.30) Estimat Glomerular Filtration Rate > 60 mL/min (>60) Glucose Level 89 MG/DL (74-106) Calcium Level 8.0 MG/DL (8.5-10.1) Arterial Blood pH 7.046 (7.350-7.450) 7.422 (7.350-7.450) Arterial Blood Partial Pressure CO2 141.7 mmHg (35.0-45.0) 47.0 mmHg (35.0-45.0) Arterial Blood Partial Pressure O2 73.4 mmHg (75.0-100.0) 119.8 mmHg (75.0-100.0) Arterial Blood HCO3 38.0 mmol/L (22.0-26.0) 29.9 mmol/L (22.0-26.0) Arterial Blood Oxygen Saturation 87.0 % (95-100) 98.3 % (95-100) Arterial Blood Base Excess 3.5 (-2-2) 4.8 (-2-2) Raphael Test Positive Positive Test 12/18/19 23:38 12/19/19 03:00 12/19/19 05:24 12/19/19 08:32 White Blood Count 7.5 K/UL (4.8-10.8) Red Blood Count 2.97 M/UL (4.20-5.40) Hemoglobin 9.6 G/DL (12.0-16.0) Hematocrit 30.8 % (37.0-47.0) Mean Corpuscular Volume 104 FL (80-99) Mean Corpuscular Hemoglobin 32.1 PG (27.0-31.0) Mean Corpuscular Hemoglobin Concent 31.1 G/DL (32.0-36.0) Red Cell Distribution Width 13.2 % (11.6-14.8) Platelet Count 155 K/UL (150-450) Mean Platelet Volume 6.2 FL (6.5-10.1) Neutrophils (%) (Auto) 72.0 % (45.0-75.0) Lymphocytes (%) (Auto) 15.4 % (20.0-45.0) Monocytes (%) (Auto) 9.2 % (1.0-10.0) Eosinophils (%) (Auto) 2.6 % (0.0-3.0) Basophils (%) (Auto) 0.9 % (0.0-2.0) Sodium Level 149 MMOL/L (136-145) Potassium Level 4.4 MMOL/L (3.5-5.1) Chloride Level 110 MMOL/L (98-107) Carbon Dioxide Level 31 MMOL/L (21-32) Anion Gap 8 mmol/L (5-15) Blood Urea Nitrogen 22 mg/dL (7-18) Creatinine 1.0 MG/DL (0.55-1.30) Estimat Glomerular Filtration Rate 53.3 mL/min (>60) Glucose Level 82 MG/DL (74-106) Calcium Level 8.3 MG/DL (8.5-10.1) Total Bilirubin 0.8 MG/DL (0.2-1.0) Aspartate Amino Transf (AST/SGOT) 19 U/L (15-37) Alanine Aminotransferase (ALT/SGPT) 38 U/L (12-78) Alkaline Phosphatase 36 U/L (46-116) Total Protein 5.8 G/DL (6.4-8.2) Albumin 3.0 G/DL (3.4-5.0) Globulin 2.8 g/dL Albumin/Globulin Ratio 1.1 (1.0-2.7) Arterial Blood pH 7.567 (7.350-7.450) Arterial Blood Partial Pressure CO2 35.0 mmHg (35.0-45.0) Arterial Blood Partial Pressure O2 71.7 mmHg (75.0-100.0) Arterial Blood HCO3 31.1 mmol/L (22.0-26.0) Arterial Blood Oxygen Saturation 95.4 % (95-100) Arterial Blood Base Excess 8.6 (-2-2) Raphael Test Positive Test 12/19/19 23:16 12/20/19 04:20 12/20/19 05:22 12/20/19 08:09 POC Whole Blood Glucose 158 MG/DL (74-106) 141 MG/DL (74-106) White Blood Count 6.7 K/UL (4.8-10.8) Red Blood Count 2.95 M/UL (4.20-5.40) Hemoglobin 9.5 G/DL (12.0-16.0) Hematocrit 30.4 % (37.0-47.0) Mean Corpuscular Volume 103 FL (80-99) Mean Corpuscular Hemoglobin 32.2 PG (27.0-31.0) Mean Corpuscular Hemoglobin Concent 31.2 G/DL (32.0-36.0) Red Cell Distribution Width 13.4 % (11.6-14.8) Platelet Count 179 K/UL (150-450) Mean Platelet Volume 7.0 FL (6.5-10.1) Neutrophils (%) (Auto) % (45.0-75.0) Lymphocytes (%) (Auto) % (20.0-45.0) Monocytes (%) (Auto) % (1.0-10.0) Eosinophils (%) (Auto) % (0.0-3.0) Basophils (%) (Auto) % (0.0-2.0) Sodium Level 150 MMOL/L (136-145) Potassium Level 4.1 MMOL/L (3.5-5.1) Chloride Level 111 MMOL/L (98-107) Carbon Dioxide Level 31 MMOL/L (21-32) Anion Gap 8 mmol/L (5-15) Blood Urea Nitrogen 31 mg/dL (7-18) Creatinine 1.1 MG/DL (0.55-1.30) Estimat Glomerular Filtration Rate 47.8 mL/min (>60) Glucose Level 144 MG/DL (74-106) Calcium Level 8.2 MG/DL (8.5-10.1) Arterial Blood pH 7.408 (7.350-7.450) Arterial Blood Partial Pressure CO2 52.7 mmHg (35.0-45.0) Arterial Blood Partial Pressure O2 79.4 mmHg (75.0-100.0) Arterial Blood HCO3 32.5 mmol/L (22.0-26.0) Arterial Blood Oxygen Saturation 94.6 % (95-100) Arterial Blood Base Excess 6.7 (-2-2) Raphael Test Positive Height (Feet): 5 Height (Inches): 7.00 Weight (Pounds): 217 Objective Vitals: reviewed General: NAD HEENT: nc, at ++ogt Neck: supple ++intubated Chest: decreased breath sounds bilaterally Cardiovascular: RRR, no s3, s4 Abdomen: soft, nontender, nd Extremities: 1-2 + edema, scd's Neuro: nonverbal : restraints Frank Escobar MD Dec 20, 2019 10:18
--- NOTE | 2019-12-20 10:44 | Diagnostic Imaging Report ---
Indication: Dyspnea Technique: One view of the chest Comparison: 12/18/2019 Findings: Stable satisfactory position of endotracheal tube. Interim advancement of previously malpositioned orogastric tube, tip projected beyond the edge of the image, presumably well positioned. Bilateral pleural effusions, and basilar consolidative opacities persist, unchanged. Impression: Improved position of previously malpositioned orogastric tube. Otherwise little warp changer 2 days
--- NOTE | 2019-12-20 10:46 | NUR ---
RADIOLOGY DEPT., CHEST X-RAY DONE.-P.DYE
--- NOTE | 2019-12-20 11:00 | Nephrology Progress Note ---
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 Respiratory distress most likely secondary to pulmonary edema and or COPD exacerbation. Hyponatremia. Obese. Hypothyroidism. Elevated d-dimer. Elevated liver enzymes Plan December 19: Patient remains intubated. Renal parameters stable. Discussed with RN. Continue per consultants. December 18: Patient self extubated yesterday however was reintubated. Remains stable from renal standpoint of view. Discussed with RN. Discussed with Dr. Myers. December 17: Remains intubated. Remains full code. Failed weaning. Stable from renal standpoint of view. Continue per consultants. Discussed with DARREL [place]. December 16: Remains intubated. Full code. Weaning in process. Stable from renal standpoint of view. December 15: Remains vented. Electrolytes improved. Continue per consultants. December 14: Patient remains in ICU intubated on ventilator. Potassium low. Phosphorus low. Supplements given. Renal parameters are stable. Continue per consultants. December 13: Patient remains in ICU intubated on ventilator. Discussed with RN. Labs reviewed. Creatinine 1.3. Potassium supplements given. Mag sulfate IV 2 g given. Continue per consultants. December 12: Patient in ICU. Intubated on ventilator. Discussed with RN. Labs reviewed. Potassium supplement given. Continue per consultants. Arterial blood gas indicative of CO2 retention. Patient on the way to ICU for intubation. Continue per pulmonary management. Pulmonary support, Check 2D echocardiogram. Previous 2D echo had a 50% ejection fraction. Keep blood sugar and blood pressure in check. Thyroid panel. Monitor electrolytes and renal parameters. Afterload reduction. Diuretics Monitor serum calcium, supplements via NG tube. Per orders. Subjective ROS Limited/Unobtainable: Yes Objective Objective Last 24 Hour Vital Signs Date Time Temp Pulse Resp B/P (MAP) Pulse Ox O2 Delivery O2 Flow Rate FiO2 12/20/19 10:00 84 21 116/48 (70) 94 12/20/19 10:00 21 116/48 Endotracheal Tube 40 12/20/19 09:30 80 21 116/49 (71) 92 12/20/19 09:00 14 118/49 Endotracheal Tube 40 12/20/19 09:00 80 14 118/49 (72) 92 12/20/19 08:30 76 18 110/44 (66) 94 12/20/19 08:09 80 12/20/19 08:00 Mechanical Ventilator 12/20/19 08:00 18 121/48 Endotracheal Tube 40 12/20/19 08:00 98.5 78 19 121/48 (72) 97 12/20/19 08:00 40 12/20/19 07:12 80 19 50 12/20/19 07:00 17 110/41 Mechanical Ventilator 50 12/20/19 07:00 68 17 110/41 (64) 98 12/20/19 06:30 69 18 112/43 (66) 94 12/20/19 06:30 69 18 12/20/19 06:00 19 93/63 Mechanical Ventilator 50 12/20/19 06:00 69 19 93/63 (73) 95 12/20/19 05:30 66 18 109/42 (64) 96 12/20/19 05:00 17 108/41 Mechanical Ventilator 50 12/20/19 05:00 67 17 108/41 (63) 97 12/20/19 04:30 68 19 112/43 (66) 95 12/20/19 04:00 Mechanical Ventilator 12/20/19 04:00 98.6 69 18 108/41 (63) 98 12/20/19 04:00 50 12/20/19 04:00 18 108/41 Mechanical Ventilator 50 12/20/19 03:30 71 18 108/42 (64) 97 12/20/19 03:24 74 18 50 12/20/19 03:16 73 12/20/19 03:00 19 125/46 Mechanical Ventilator 50 12/20/19 03:00 77 19 125/46 (72) 97 12/20/19 02:30 71 22 113/44 (67) 100 12/20/19 02:00 64 21 110/40 (63) 99 12/20/19 02:00 21 110/40 Mechanical Ventilator 60 12/20/19 01:30 64 21 104/42 (62) 99 12/20/19 01:00 20 104/40 Mechanical Ventilator 60 12/20/19 01:00 65 20 104/40 (61) 99 12/20/19 00:30 64 20 105/40 (61) 100 12/20/19 00:00 20 104/39 Mechanical Ventilator 60 12/20/19 00:00 97.6 64 20 104/39 (60) 100 12/20/19 00:00 Mechanical Ventilator 12/20/19 00:00 64 12/20/19 00:00 60 12/19/19 23:30 65 20 101/40 (60) 99 12/19/19 23:00 65 20 104/41 (62) 100 12/19/19 23:00 20 104/41 Mechanical Ventilator 60 12/19/19 22:34 71 23 60 12/19/19 22:32 60 12/19/19 22:30 69 19 109/46 (67) 92 12/19/19 22:15 67 19 101/40 (60) 94 12/19/19 22:00 68 18 103/41 (61) 95 12/19/19 22:00 18 103/41 Mechanical Ventilator 40 12/19/19 21:30 67 18 96/47 (63) 92 12/19/19 21:00 67 19 101/43 (62) 95 12/19/19 21:00 19 101/43 Mechanical Ventilator 40 12/19/19 20:56 19 101/42 Mechanical Ventilator 40 12/19/19 20:30 68 19 104/45 (64) 95 12/19/19 20:00 Mechanical Ventilator 12/19/19 20:00 19 98/43 Mechanical Ventilator 40 12/19/19 20:00 40 12/19/19 20:00 98.6 70 19 98/43 (61) 94 12/19/19 19:58 70 21 40 12/19/19 19:51 71 12/19/19 19:00 67 18 113/46 (68) 95 12/19/19 19:00 12 113/46 Mechanical Ventilator 40 12/19/19 18:00 12 102/40 Mechanical Ventilator 40 12/19/19 18:00 66 18 102/40 (60) 97 12/19/19 17:30 67 18 104/40 (61) 99 12/19/19 17:00 65 17 105/40 (61) 100 12/19/19 17:00 12 105/40 Mechanical Ventilator 40 12/19/19 16:30 66 17 106/42 (63) 100 12/19/19 16:00 Mechanical Ventilator 12/19/19 16:00 12 107/41 Mechanical Ventilator 40 12/19/19 16:00 66 12/19/19 16:00 98.5 67 17 107/41 (63) 100 12/19/19 16:00 40 12/19/19 15:30 66 17 101/41 (61) 100 12/19/19 15:15 68 19 40 12/19/19 15:00 12 105/42 Mechanical Ventilator 40 12/19/19 15:00 67 17 105/42 (63) 100 12/19/19 14:30 68 18 106/41 (62) 100 12/19/19 14:00 18 103/39 Mechanical Ventilator 40 12/19/19 14:00 66 18 103/39 (60) 100 12/19/19 13:30 69 18 100/40 (60) 98 12/19/19 13:00 72 17 105/44 (64) 99 12/19/19 13:00 12 105/44 Mechanical Ventilator 40 12/19/19 12:30 76 13 111/44 (66) 95 12/19/19 12:00 97.5 74 12 105/41 (62) 100 12/19/19 12:00 40 12/19/19 12:00 75 12/19/19 12:00 12 105/41 Mechanical Ventilator 40 12/19/19 12:00 Mechanical Ventilator 12/19/19 11:47 40 12/19/19 11:44 72 12 40 12/19/19 11:30 70 13 101/40 (60) 100 12/19/19 11:00 14 100/39 Mechanical Ventilator 50 12/19/19 11:00 70 14 100/39 (59) 100 Intake and Output 12/19/19 12/20/19 19:00 07:00 Intake Total 1450.0 ml 1551.5 ml Output Total 525 ml 435 ml Balance 925.0 ml 1116.5 ml Intake Free Water 30 ml IV Total 820.0 ml 871.5 ml Tube Feeding 600 ml 600 ml Other 80 ml Output Urine Total 525 ml 435 ml Laboratory Tests 12/19/19 23:16: POC Whole Blood Glucose 158H 12/20/19 04:20: White Blood Count 6.7, Red Blood Count 2.95L, Hemoglobin 9.5L, Hematocrit 30.4L , Mean Corpuscular Volume 103H, Mean Corpuscular Hemoglobin 32.2H, Mean Corpuscular Hemoglobin Concent 31.2L, Red Cell Distribution Width 13.4, Platelet Count 179, Mean Platelet Volume 7.0, Neutrophils (%) (Auto) , Lymphocytes (%) (Auto) , Monocytes (%) (Auto) , Eosinophils (%) (Auto) , Basophils (%) (Auto) , Sodium Level 150H, Potassium Level 4.1, Chloride Level 111H, Carbon Dioxide Level 31, Anion Gap 8, Blood Urea Nitrogen 31H, Creatinine 1.1, Estimat Glomerular Filtration Rate 47.8, Glucose Level 144H, Calcium Level 8.2L 12/20/19 05:22: POC Whole Blood Glucose 141H 12/20/19 08:09: Arterial Blood pH 7.408, Arterial Blood Partial Pressure CO2 52.7H, Arterial Blood Partial Pressure O2 79.4, Arterial Blood HCO3 32.5H, Arterial Blood Oxygen Saturation 94.6L, Arterial Blood Base Excess 6.7H, Raphael Test Positive Height (Feet): 5 Height (Inches): 7.00 Weight (Pounds): 217 General Appearance: no apparent distress EENT: other - Intubated on ventilator Cardiovascular: tachycardia Respiratory/Chest: decreased breath sounds Abdomen: distended Bryan Ochoa MD Dec 20, 2019 11:00
--- NOTE | 2019-12-20 11:03 | Pulmonology Progress Note ---
Subjective ROS Limited/Unobtainable: Yes Interval Events: Self extubatedbut failed to oxygenate on NRBM; re-intubated Constitutional: Denies: fever HEENT: Repors: no symptoms Respiratory: Reports: no symptoms Cardiovascular: Reports: no symptoms Gastrointestinal/Abdominal: Reports: no symptoms Genitourinary: Reports: no symptoms Allergies: Coded Allergies: LITHIUM (Verified Allergy, Unknown, 02/07/19) All Systems: reviewed and negative except above Objective Last 24 Hour Vital Signs Date Time Temp Pulse Resp B/P (MAP) Pulse Ox O2 Delivery O2 Flow Rate FiO2 12/20/19 10:00 84 21 116/48 (70) 94 12/20/19 10:00 21 116/48 Endotracheal Tube 40 12/20/19 09:30 80 21 116/49 (71) 92 12/20/19 09:00 14 118/49 Endotracheal Tube 40 12/20/19 09:00 80 14 118/49 (72) 92 12/20/19 08:30 76 18 110/44 (66) 94 12/20/19 08:09 80 12/20/19 08:00 Mechanical Ventilator 12/20/19 08:00 18 121/48 Endotracheal Tube 40 12/20/19 08:00 98.5 78 19 121/48 (72) 97 12/20/19 08:00 40 12/20/19 07:12 80 19 50 12/20/19 07:00 17 110/41 Mechanical Ventilator 50 12/20/19 07:00 68 17 110/41 (64) 98 12/20/19 06:30 69 18 112/43 (66) 94 12/20/19 06:30 69 18 12/20/19 06:00 19 93/63 Mechanical Ventilator 50 12/20/19 06:00 69 19 93/63 (73) 95 12/20/19 05:30 66 18 109/42 (64) 96 12/20/19 05:00 17 108/41 Mechanical Ventilator 50 12/20/19 05:00 67 17 108/41 (63) 97 12/20/19 04:30 68 19 112/43 (66) 95 12/20/19 04:00 Mechanical Ventilator 12/20/19 04:00 98.6 69 18 108/41 (63) 98 12/20/19 04:00 50 12/20/19 04:00 18 108/41 Mechanical Ventilator 50 12/20/19 03:30 71 18 108/42 (64) 97 12/20/19 03:24 74 18 50 12/20/19 03:16 73 12/20/19 03:00 19 125/46 Mechanical Ventilator 50 12/20/19 03:00 77 19 125/46 (72) 97 12/20/19 02:30 71 22 113/44 (67) 100 12/20/19 02:00 64 21 110/40 (63) 99 12/20/19 02:00 21 110/40 Mechanical Ventilator 60 12/20/19 01:30 64 21 104/42 (62) 99 12/20/19 01:00 20 104/40 Mechanical Ventilator 60 12/20/19 01:00 65 20 104/40 (61) 99 12/20/19 00:30 64 20 105/40 (61) 100 12/20/19 00:00 20 104/39 Mechanical Ventilator 60 12/20/19 00:00 97.6 64 20 104/39 (60) 100 12/20/19 00:00 Mechanical Ventilator 12/20/19 00:00 64 12/20/19 00:00 60 12/19/19 23:30 65 20 101/40 (60) 99 12/19/19 23:00 65 20 104/41 (62) 100 12/19/19 23:00 20 104/41 Mechanical Ventilator 60 12/19/19 22:34 71 23 60 12/19/19 22:32 60 12/19/19 22:30 69 19 109/46 (67) 92 12/19/19 22:15 67 19 101/40 (60) 94 12/19/19 22:00 68 18 103/41 (61) 95 12/19/19 22:00 18 103/41 Mechanical Ventilator 40 12/19/19 21:30 67 18 96/47 (63) 92 12/19/19 21:00 67 19 101/43 (62) 95 12/19/19 21:00 19 101/43 Mechanical Ventilator 40 12/19/19 20:56 19 101/42 Mechanical Ventilator 40 12/19/19 20:30 68 19 104/45 (64) 95 12/19/19 20:00 Mechanical Ventilator 12/19/19 20:00 19 98/43 Mechanical Ventilator 40 12/19/19 20:00 40 12/19/19 20:00 98.6 70 19 98/43 (61) 94 12/19/19 19:58 70 21 40 12/19/19 19:51 71 12/19/19 19:00 67 18 113/46 (68) 95 12/19/19 19:00 12 113/46 Mechanical Ventilator 40 12/19/19 18:00 12 102/40 Mechanical Ventilator 40 12/19/19 18:00 66 18 102/40 (60) 97 12/19/19 17:30 67 18 104/40 (61) 99 12/19/19 17:00 65 17 105/40 (61) 100 12/19/19 17:00 12 105/40 Mechanical Ventilator 40 12/19/19 16:30 66 17 106/42 (63) 100 12/19/19 16:00 Mechanical Ventilator 12/19/19 16:00 12 107/41 Mechanical Ventilator 40 12/19/19 16:00 66 12/19/19 16:00 98.5 67 17 107/41 (63) 100 12/19/19 16:00 40 12/19/19 15:30 66 17 101/41 (61) 100 12/19/19 15:15 68 19 40 12/19/19 15:00 12 105/42 Mechanical Ventilator 40 12/19/19 15:00 67 17 105/42 (63) 100 12/19/19 14:30 68 18 106/41 (62) 100 12/19/19 14:00 18 103/39 Mechanical Ventilator 40 12/19/19 14:00 66 18 103/39 (60) 100 12/19/19 13:30 69 18 100/40 (60) 98 12/19/19 13:00 72 17 105/44 (64) 99 12/19/19 13:00 12 105/44 Mechanical Ventilator 40 12/19/19 12:30 76 13 111/44 (66) 95 12/19/19 12:00 97.5 74 12 105/41 (62) 100 12/19/19 12:00 40 12/19/19 12:00 75 12/19/19 12:00 12 105/41 Mechanical Ventilator 40 12/19/19 12:00 Mechanical Ventilator 12/19/19 11:47 40 12/19/19 11:44 72 12 40 12/19/19 11:30 70 13 101/40 (60) 100 Intake and Output 12/19/19 12/20/19 19:00 07:00 Intake Total 1450.0 ml 1551.5 ml Output Total 525 ml 435 ml Balance 925.0 ml 1116.5 ml Intake Free Water 30 ml IV Total 820.0 ml 871.5 ml Tube Feeding 600 ml 600 ml Other 80 ml Output Urine Total 525 ml 435 ml General Appearance: no acute distress Respiratory: chest wall non-tender, lungs clear Cardiovascular: normal peripheral pulses, normal rate Abdomen: normal bowel sounds Laboratory Tests 12/19/19 23:16: POC Whole Blood Glucose 158H 12/20/19 04:20: White Blood Count 6.7, Red Blood Count 2.95L, Hemoglobin 9.5L, Hematocrit 30.4L , Mean Corpuscular Volume 103H, Mean Corpuscular Hemoglobin 32.2H, Mean Corpuscular Hemoglobin Concent 31.2L, Red Cell Distribution Width 13.4, Platelet Count 179, Mean Platelet Volume 7.0, Neutrophils (%) (Auto) , Lymphocytes (%) (Auto) , Monocytes (%) (Auto) , Eosinophils (%) (Auto) , Basophils (%) (Auto) , Sodium Level 150H, Potassium Level 4.1, Chloride Level 111H, Carbon Dioxide Level 31, Anion Gap 8, Blood Urea Nitrogen 31H, Creatinine 1.1, Estimat Glomerular Filtration Rate 47.8, Glucose Level 144H, Calcium Level 8.2L 12/20/19 05:22: POC Whole Blood Glucose 141H 12/20/19 08:09: Arterial Blood pH 7.408, Arterial Blood Partial Pressure CO2 52.7H, Arterial Blood Partial Pressure O2 79.4, Arterial Blood HCO3 32.5H, Arterial Blood Oxygen Saturation 94.6L, Arterial Blood Base Excess 6.7H, Raphael Test Positive Current Medications Medications (Trade) Dose Ordered Sig/Angie Route PRN Reason Start Time Stop Time Status Last Admin Dose Admin Acetaminophen (Tylenol) 650 mg Q6H PRN ORAL Mild Pain (Pain Scale 1-3) 12/12/19 12:30 01/11/20 12:29 Acetaminophen (Tylenol) 1,000 mg Q6H PRN ORAL MODERATE PAIN 12/12/19 12:30 01/11/20 12:29 Amantadine HCl (Symmetrel) 100 mg TWICE A DAY GT 12/15/19 18:00 01/11/20 08:59 12/20/19 08:09 Aspirin (Ecotrin) 325 mg DAILY ORAL 12/13/19 09:00 01/26/20 08:59 12/20/19 08:11 Atorvastatin Calcium (Lipitor) 10 mg BEDTIME GT 12/15/19 21:00 03/11/20 20:59 12/19/19 20:54 Calcium Carbonate (Os-Octavio) 1,250 mg THREE TIMES A DAY GT 12/15/19 18:00 03/11/20 09:59 12/20/19 08:11 Clonidine HCl (Catapres Tab) 0.1 mg Q6H PRN GT For high BP over 160 systolic 12/15/19 16:30 03/11/20 12:30 Dextrose (Dextrose 50%) 25 ml Q30M PRN IV Hypoglycemia 12/13/19 07:15 03/12/20 07:14 Dextrose (Dextrose 50%) 50 ml Q30M PRN IV Hypoglycemia 12/13/19 07:15 03/12/20 07:14 Divalproex Sodium (Depakote Sprinkles) 250 mg EVERY 12 HOURS NG 12/13/19 21:00 01/12/20 20:59 12/20/19 08:09 Docusate Sodium (Colace) 100 mg TWICE A DAY NG 12/15/19 18:00 01/14/20 17:59 12/20/19 08:10 Fentanyl Citrate 250 ml @ 0 mls/hr Q24H IV 12/18/19 20:53 03/17/20 20:52 12/19/19 20:56 Haloperidol Lactate 5 mg/ Dextrose 56 ml @ 224 mls/hr Q6H PRN IVPB agitation 12/18/19 10:45 02/01/20 10:44 Insulin Aspart (NovoLOG) EVERY 6 HOURS SUBQ 12/13/19 12:00 03/12/20 11:59 12/20/19 05:31 Lactulose (Cephulac) 20 gm BID GT 12/19/19 18:00 01/18/20 17:59 12/20/19 08:10 Levothyroxine Sodium (Synthroid) 75 mcg DAILY IV 12/13/19 09:00 01/11/20 09:29 12/20/19 08:10 Methylprednisolone Sodium Succinate (Solu-MEDROL) 40 mg EVERY 6 HOURS IVP 12/19/19 12:00 03/18/20 11:59 12/20/19 05:30 Nitroglycerin (Ntg) 0.4 mg Q5MIN X 3 DOSES PRN SL CHEST PAIN 12/12/19 12:00 01/10/20 21:44 Olanzapine (ZyPREXA) 5 mg BID GT 12/15/19 18:00 01/26/20 08:59 12/20/19 08:11 Pantoprazole (Protonix) 40 mg EVERY 12 HOURS IVP 12/14/19 09:00 01/13/20 08:59 12/20/19 08:10 Phosphorus (Phospha 250 Neutral) 250 mg THREE TIMES A DAY GT 12/15/19 09:00 01/14/20 08:59 12/20/19 08:10 Piperacillin Sod/ Tazobactam Sod 3.375 gm/Sodium Chloride 110 ml @ 27.5 mls/hr EVERY 8 HOURS IVPB 12/19/19 14:00 12/24/19 13:59 12/20/19 05:30 Polyethylene Glycol (Miralax) 17 gm BEDTIME GT 12/19/19 21:00 01/18/20 20:59 12/19/19 20:53 Sodium Chloride 1,000 ml @ 50 mls/hr Q20H IV 12/12/19 12:30 01/11/20 12:29 12/20/19 00:52 Assessment/Plan Assessment/Plan IMPRESSION: 1. Respiratory failure. 2. Has healthcare-associated pneumonia; is negative for COVID-19. 3. Psych disorder. 4. Obesity. 5. Hypertension. DISCUSSION: Continue broad spectrum antibiotics. On propofol. I will manage respirator, currently on AC mode 50% FiO2 and PEEP of 5. Has negative COVID-19 swab. I will follow carefully. Continue weaning; failed self-extubation Requiring 40% FiO2; SaO2 92% Will continue Haldol to assist in weaning Emerita Fan Omar Syed MD Dec 20, 2019 11:03
--- NOTE | 2019-12-20 11:46 | NUR ---
NURSE NOTES: At 1100 Fentanyl sedative was turned off to proceed with weaning. At 1146 with RT at bedside weaning began Pressure Support 10, FiO2 40%, PEEP 5. Patient was instructed by RT to breathe deeply. Patient is tolerating well, RR 14 and O2 saturation at 97%. Will continue to monitor.
--- NOTE | 2019-12-20 12:04 | General Progress Note ---
Assessment/Plan Status: progressing Assessment/Plan: Assessment - Resp failure - r/o COVID -- x 2 negative - COPD - HTN - Anemia - Abnormal LFT Recommendations - TF - Elevate HOB - abx - follow labs - f/u hepatitis serologies>>> neg - mirakax and lactulose -repeat labs Subjective ROS Limited/Unobtainable: No Allergies: Coded Allergies: LITHIUM (Verified Allergy, Unknown, 02/07/19) Objective Last 24 Hour Vital Signs Date Time Temp Pulse Resp B/P (MAP) Pulse Ox O2 Delivery O2 Flow Rate FiO2 12/20/19 11:46 96 12/20/19 11:40 40 12/20/19 11:27 81 13 50 12/20/19 11:00 20 12/49 Endotracheal Tube 40 12/20/19 11:00 81 20 123/49 (73) 94 12/20/19 10:00 84 21 116/48 (70) 94 12/20/19 10:00 21 116/48 Endotracheal Tube 40 12/20/19 09:30 80 21 116/49 (71) 92 12/20/19 09:00 14 118/49 Endotracheal Tube 40 12/20/19 09:00 80 14 118/49 (72) 92 12/20/19 08:30 76 18 110/44 (66) 94 12/20/19 08:09 80 12/20/19 08:00 Mechanical Ventilator 12/20/19 08:00 18 121/48 Endotracheal Tube 40 12/20/19 08:00 98.5 78 19 121/48 (72) 97 12/20/19 08:00 40 12/20/19 07:12 80 19 50 12/20/19 07:00 17 110/41 Mechanical Ventilator 50 12/20/19 07:00 68 17 110/41 (64) 98 12/20/19 06:30 69 18 112/43 (66) 94 12/20/19 06:30 69 18 12/20/19 06:00 19 93/63 Mechanical Ventilator 50 12/20/19 06:00 69 19 93/63 (73) 95 12/20/19 05:30 66 18 109/42 (64) 96 12/20/19 05:00 17 108/41 Mechanical Ventilator 50 12/20/19 05:00 67 17 108/41 (63) 97 12/20/19 04:30 68 19 112/43 (66) 95 12/20/19 04:00 Mechanical Ventilator 12/20/19 04:00 98.6 69 18 108/41 (63) 98 12/20/19 04:00 50 12/20/19 04:00 18 108/41 Mechanical Ventilator 50 12/20/19 03:30 71 18 108/42 (64) 97 12/20/19 03:24 74 18 50 12/20/19 03:16 73 12/20/19 03:00 19 125/46 Mechanical Ventilator 50 12/20/19 03:00 77 19 125/46 (72) 97 12/20/19 02:30 71 22 113/44 (67) 100 12/20/19 02:00 64 21 110/40 (63) 99 12/20/19 02:00 21 110/40 Mechanical Ventilator 60 12/20/19 01:30 64 21 104/42 (62) 99 12/20/19 01:00 20 104/40 Mechanical Ventilator 60 12/20/19 01:00 65 20 104/40 (61) 99 12/20/19 00:30 64 20 105/40 (61) 100 12/20/19 00:00 20 104/39 Mechanical Ventilator 60 12/20/19 00:00 97.6 64 20 104/39 (60) 100 12/20/19 00:00 Mechanical Ventilator 12/20/19 00:00 64 12/20/19 00:00 60 12/19/19 23:30 65 20 101/40 (60) 99 12/19/19 23:00 65 20 104/41 (62) 100 12/19/19 23:00 20 104/41 Mechanical Ventilator 60 12/19/19 22:34 71 23 60 12/19/19 22:32 60 12/19/19 22:30 69 19 109/46 (67) 92 12/19/19 22:15 67 19 101/40 (60) 94 12/19/19 22:00 68 18 103/41 (61) 95 12/19/19 22:00 18 103/41 Mechanical Ventilator 40 12/19/19 21:30 67 18 96/47 (63) 92 12/19/19 21:00 67 19 101/43 (62) 95 12/19/19 21:00 19 101/43 Mechanical Ventilator 40 12/19/19 20:56 19 101/42 Mechanical Ventilator 40 12/19/19 20:30 68 19 104/45 (64) 95 12/19/19 20:00 Mechanical Ventilator 12/19/19 20:00 19 98/43 Mechanical Ventilator 40 12/19/19 20:00 40 12/19/19 20:00 98.6 70 19 98/43 (61) 94 12/19/19 19:58 70 21 40 12/19/19 19:51 71 12/19/19 19:00 67 18 113/46 (68) 95 12/19/19 19:00 12 113/46 Mechanical Ventilator 40 12/19/19 18:00 12 102/40 Mechanical Ventilator 40 12/19/19 18:00 66 18 102/40 (60) 97 12/19/19 17:30 67 18 104/40 (61) 99 12/19/19 17:00 65 17 105/40 (61) 100 12/19/19 17:00 12 105/40 Mechanical Ventilator 40 12/19/19 16:30 66 17 106/42 (63) 100 12/19/19 16:00 Mechanical Ventilator 12/19/19 16:00 12 107/41 Mechanical Ventilator 40 12/19/19 16:00 66 12/19/19 16:00 98.5 67 17 107/41 (63) 100 12/19/19 16:00 40 12/19/19 15:30 66 17 101/41 (61) 100 12/19/19 15:15 68 19 40 12/19/19 15:00 12 105/42 Mechanical Ventilator 40 12/19/19 15:00 67 17 105/42 (63) 100 12/19/19 14:30 68 18 106/41 (62) 100 12/19/19 14:00 18 103/39 Mechanical Ventilator 40 12/19/19 14:00 66 18 103/39 (60) 100 12/19/19 13:30 69 18 100/40 (60) 98 12/19/19 13:00 72 17 105/44 (64) 99 12/19/19 13:00 12 105/44 Mechanical Ventilator 40 12/19/19 12:30 76 13 111/44 (66) 95 Intake and Output 12/19/19 12/20/19 19:00 07:00 Intake Total 1450.0 ml 1551.5 ml Output Total 525 ml 435 ml Balance 925.0 ml 1116.5 ml Intake Free Water 30 ml IV Total 820.0 ml 871.5 ml Tube Feeding 600 ml 600 ml Other 80 ml Output Urine Total 525 ml 435 ml Laboratory Tests 12/19/19 23:16: POC Whole Blood Glucose 158H 12/20/19 04:20: White Blood Count 6.7, Red Blood Count 2.95L, Hemoglobin 9.5L, Hematocrit 30.4L , Mean Corpuscular Volume 103H, Mean Corpuscular Hemoglobin 32.2H, Mean Corpuscular Hemoglobin Concent 31.2L, Red Cell Distribution Width 13.4, Platelet Count 179, Mean Platelet Volume 7.0, Neutrophils (%) (Auto) , Lymphocytes (%) (Auto) , Monocytes (%) (Auto) , Eosinophils (%) (Auto) , Basophils (%) (Auto) , Sodium Level 150H, Potassium Level 4.1, Chloride Level 111H, Carbon Dioxide Level 31, Anion Gap 8, Blood Urea Nitrogen 31H, Creatinine 1.1, Estimat Glomerular Filtration Rate 47.8, Glucose Level 144H, Calcium Level 8.2L 12/20/19 05:22: POC Whole Blood Glucose 141H 12/20/19 08:09: Arterial Blood pH 7.408, Arterial Blood Partial Pressure CO2 52.7H, Arterial Blood Partial Pressure O2 79.4, Arterial Blood HCO3 32.5H, Arterial Blood Oxygen Saturation 94.6L, Arterial Blood Base Excess 6.7H, Raphael Test Positive Height (Feet): 5 Height (Inches): 7.00 Weight (Pounds): 217 General Appearance: no apparent distress EENT: normal ENT inspection Neck: supple Cardiovascular: normal rate Respiratory/Chest: decreased breath sounds Abdomen: normal bowel sounds, non tender, soft Extremities: non-tender Kirk Vidal MD Dec 20, 2019 12:04
--- NOTE | 2019-12-20 15:00 | NUR ---
NURSE NOTES: Patient placed back on AC mode, vent settings AC 14, TV 450, FiO2 50%, PEEP 5.
--- NOTE | 2019-12-20 15:20 | NUR ---
NURSE NOTES: Gave bed bath to patient, turned and repositioned. Patient able to follow commands, no signs of acute distress. Will continue to monitor.
--- NOTE | 2019-12-20 15:26 | Cardiac Electrophysiology PN ---
Assessment/Plan Assessment/Plan 1. Recurrent respiratory failure with BNP of more than 19,000. Echo showed normal ejection fraction. Off Lasix 2. Bradycardia requiring atropine, Likely due to respiratory failure as was on T piece at the time. No recurrence on the Vent 3. Respiratory failure. Patient is intubated on the vent on steroids and antibiotic Being weaned again 4. History of Parkinson disease. 5. Hyperlipidemia. 6. Metabolic alkalosis. Better off Lasix DW RN Subjective Subjective On the vent off pressors. No more laney Objective Last 24 Hour Vital Signs Date Time Temp Pulse Resp B/P (MAP) Pulse Ox O2 Delivery O2 Flow Rate FiO2 12/20/19 15:00 40 12/20/19 15:00 85 21 133/58 (83) 97 12/20/19 14:30 90 18 122/48 (72) 95 12/20/19 14:00 85 16 116/46 (69) 95 12/20/19 13:30 88 17 118/47 (70) 95 12/20/19 13:00 87 18 115/46 (69) 94 12/20/19 12:44 84 12/20/19 12:30 86 15 112/45 (67) 95 12/20/19 12:00 Mechanical Ventilator 12/20/19 12:00 40 12/20/19 12:00 98.4 91 16 129/61 (83) 93 12/20/19 11:46 96 12/20/19 11:40 40 12/20/19 11:30 83 24 117/44 (68) 95 12/20/19 11:27 81 13 50 12/20/19 11:00 20 12/49 Endotracheal Tube 40 12/20/19 11:00 81 20 123/49 (73) 94 12/20/19 10:30 82 22 113/48 (69) 93 12/20/19 10:00 84 21 116/48 (70) 94 12/20/19 10:00 21 116/48 Endotracheal Tube 40 12/20/19 09:30 80 21 116/49 (71) 92 12/20/19 09:00 14 118/49 Endotracheal Tube 40 12/20/19 09:00 80 14 118/49 (72) 92 12/20/19 08:30 76 18 110/44 (66) 94 12/20/19 08:09 80 12/20/19 08:00 Mechanical Ventilator 12/20/19 08:00 18 121/48 Endotracheal Tube 40 12/20/19 08:00 98.5 78 19 121/48 (72) 97 12/20/19 08:00 40 12/20/19 07:12 80 19 50 12/20/19 07:00 17 110/41 Mechanical Ventilator 50 12/20/19 07:00 68 17 110/41 (64) 98 12/20/19 06:30 69 18 112/43 (66) 94 12/20/19 06:30 69 18 12/20/19 06:00 19 93/63 Mechanical Ventilator 50 12/20/19 06:00 69 19 93/63 (73) 95 12/20/19 05:30 66 18 109/42 (64) 96 12/20/19 05:00 17 108/41 Mechanical Ventilator 50 12/20/19 05:00 67 17 108/41 (63) 97 12/20/19 04:30 68 19 112/43 (66) 95 12/20/19 04:00 Mechanical Ventilator 12/20/19 04:00 98.6 69 18 108/41 (63) 98 12/20/19 04:00 50 12/20/19 04:00 18 108/41 Mechanical Ventilator 50 12/20/19 03:30 71 18 108/42 (64) 97 12/20/19 03:24 74 18 50 12/20/19 03:16 73 12/20/19 03:00 19 125/46 Mechanical Ventilator 50 12/20/19 03:00 77 19 125/46 (72) 97 12/20/19 02:30 71 22 113/44 (67) 100 12/20/19 02:00 64 21 110/40 (63) 99 12/20/19 02:00 21 110/40 Mechanical Ventilator 60 12/20/19 01:30 64 21 104/42 (62) 99 12/20/19 01:00 20 104/40 Mechanical Ventilator 60 12/20/19 01:00 65 20 104/40 (61) 99 12/20/19 00:30 64 20 105/40 (61) 100 12/20/19 00:00 20 104/39 Mechanical Ventilator 60 12/20/19 00:00 97.6 64 20 104/39 (60) 100 12/20/19 00:00 Mechanical Ventilator 12/20/19 00:00 64 12/20/19 00:00 60 7/20 23:30 65 20 101/40 (60) 99 720 23:00 65 20 104/41 (62) 100 12/19/19 23:00 20 104/41 Mechanical Ventilator 60 20 22:34 71 23 60 7/20 22:32 60 7 22:30 69 19 109/46 (67) 92 12/19/19 22:15 67 19 101/40 (60) 94 12/19/19 22:00 68 18 103/41 (61) 95 12/19/19 22:00 18 103/41 Mechanical Ventilator 40 12/19/19 21:30 67 18 96/47 (63) 92 12/19/19 21:00 67 19 101/43 (62) 95 12/19/19 21:00 19 101/43 Mechanical Ventilator 40 12/19/19 20:56 19 101/42 Mechanical Ventilator 40 12/19/19 20:30 68 19 104/45 (64) 95 12/19/19 20:00 Mechanical Ventilator 12/19/19 20:00 19 98/43 Mechanical Ventilator 40 12/19/19 20:00 40 12/19/19 20:00 98.6 70 19 98/43 (61) 94 12/19/19 19:58 70 21 40 12/19/19 19:51 71 12/19/19 19:00 67 18 113/46 (68) 95 12/19/19 19:00 12 113/46 Mechanical Ventilator 40 12/19/19 18:00 12 102/40 Mechanical Ventilator 40 12/19/19 18:00 66 18 102/40 (60) 97 20 17:30 67 18 104/40 (61) 99 20 17:00 65 17 105/40 (61) 100 12/19/19 17:00 12 105/40 Mechanical Ventilator 40 12/19/19 16:30 66 17 106/42 (63) 100 12/19/19 16:00 Mechanical Ventilator 12/19/19 16:00 12 107/41 Mechanical Ventilator 40 12/19/19 16:00 66 /01/30 16:00 98.5 67 17 107/41 (63) 100 12/19/19 16:00 40 12/19/19 15:30 66 17 101/41 (61) 100 Intake and Output 12/19/19 12/20/19 19:00 07:00 Intake Total 1450.0 ml 1551.5 ml Output Total 525 ml 435 ml Balance 925.0 ml 1116.5 ml Intake Free Water 30 ml IV Total 820.0 ml 871.5 ml Tube Feeding 600 ml 600 ml Other 80 ml Output Urine Total 525 ml 435 ml Laboratory Tests Test 12/19/19 23:16 12/20/19 04:20 12/20/19 05:22 12/20/19 08:09 POC Whole Blood Glucose 158 MG/DL (74-106) H 141 MG/DL (74-106) H White Blood Count 6.7 K/UL (4.8-10.8) Red Blood Count 2.95 M/UL (4.20-5.40) L Hemoglobin 9.5 G/DL (12.0-16.0) L Hematocrit 30.4 % (37.0-47.0) L Mean Corpuscular Volume 103 FL (80-99) H Mean Corpuscular Hemoglobin 32.2 PG (27.0-31.0) H Mean Corpuscular Hemoglobin Concent 31.2 G/DL (32.0-36.0) L Red Cell Distribution Width 13.4 % (11.6-14.8) Platelet Count 179 K/UL (150-450) Mean Platelet Volume 7.0 FL (6.5-10.1) Neutrophils (%) (Auto) % (45.0-75.0) Lymphocytes (%) (Auto) % (20.0-45.0) Monocytes (%) (Auto) % (1.0-10.0) Eosinophils (%) (Auto) % (0.0-3.0) Basophils (%) (Auto) % (0.0-2.0) Sodium Level 150 MMOL/L (136-145) H Potassium Level 4.1 MMOL/L (3.5-5.1) Chloride Level 111 MMOL/L (98-107) H Carbon Dioxide Level 31 MMOL/L (21-32) Anion Gap 8 mmol/L (5-15) Blood Urea Nitrogen 31 mg/dL (7-18) H Creatinine 1.1 MG/DL (0.55-1.30) Estimat Glomerular Filtration Rate 47.8 mL/min (>60) Glucose Level 144 MG/DL (74-106) H Calcium Level 8.2 MG/DL (8.5-10.1) L Arterial Blood pH 7.408 (7.350-7.450) Arterial Blood Partial Pressure CO2 52.7 mmHg (35.0-45.0) H Arterial Blood Partial Pressure O2 79.4 mmHg (75.0-100.0) Arterial Blood HCO3 32.5 mmol/L (22.0-26.0) H Arterial Blood Oxygen Saturation 94.6 % (95-100) L Arterial Blood Base Excess 6.7 (-2-2) H Raphael Test Positive Test 12/20/19 12:50 Arterial Blood pH 7.356 (7.350-7.450) Arterial Blood Partial Pressure CO2 58.0 mmHg (35.0-45.0) *H Arterial Blood Partial Pressure O2 106.2 mmHg (75.0-100.0) H Arterial Blood HCO3 31.7 mmol/L (22.0-26.0) H Arterial Blood Oxygen Saturation 96.7 % (95-100) Arterial Blood Base Excess 5.1 (-2-2) H Raphael Test Positive Objective HEAD AND NECK: She is orally intubated with no JVD. LUNGS: Coarse rhonchi. CARDIOVASCULAR: Shows regular S1 and S2 and tachycardic. ABDOMEN: Soft. EXTREMITIES: No pitting edema. Cameron Davies MD Dec 20, 2019 15:26
--- NOTE | 2019-12-20 19:00 | NUR ---
HAND-OFF: Report given to Enmanuel ROJO.
--- NOTE | 2019-12-20 19:33 | NUR ---
NURSE NOTES: PATIENT RESPONSE TO NAME, ON ETT TO VENT, AC 12/TV450/FIO2 40%/PEEP5, O2 SATURATION OVER 92% NOTED, HR 70/MIN SR, ABDOMEN SOFT, NON TENDER, OGT INTACT AND PATENT, ONGOING VITAL AF 1.2 AT 50ML/HR, NO RESIDUE NOTED, KEPT HOB 30 DEGREES AND ASPIRATION PRECAUTION, F/C INTACT AND PATENT, YELLOW URINE OUTED GRAVITY, 2 POINT SOFT RESTRAINTS, PPL TO RIGHT WRIST AND LEFT FA, INTACT AND PATENT, ONGOING IV FLUID NS AT 50ML/HR VIA RIGHT WRIST PPL, ON P200 BED, ON BED ALARM AND LOCKED, MADE LOWER BED POSITION, WILL CONTINUE TO MONITOR.
[2019-12-20] MEDS: fentaNYL 2500mcg/NS 250ml 250 ML IV SCH (20:37)
[2019-12-20] MEDS: Miralax 17gm pkt GT SCH (20:37)
--- NOTE | 2019-12-20 21:07 | General Progress Note ---
Assessment/Plan Problem List: (1) Dyspnea ICD Codes: R06.00 - Dyspnea, unspecified SNOMED: 958524069 (2) Hypothyroidism ICD Codes: E03.9 - Hypothyroidism, unspecified SNOMED: 98718792 (3) Obese ICD Codes: E66.9 - Obesity, unspecified SNOMED: 276277385, 454006955 (4) Psychosis ICD Codes: F29 - Unspecified psychosis not due to a substance or known physiological condition SNOMED: 02295299 (5) Respiratory failure ICD Codes: J96.90 - Respiratory failure, unspecified, unspecified whether with hypoxia or hypercapnia SNOMED: 304313079 (6) Respiratory distress ICD Codes: R06.03 - Acute respiratory distress SNOMED: 402512050 (7) Dyspnea ICD Codes: R06.00 - Dyspnea, unspecified SNOMED: 918943265 (8) Pneumonia ICD Codes: J18.9 - Pneumonia, unspecified organism SNOMED: 781054809 (9) Acute and chronic respiratory failure ICD Codes: J96.20 - Acute and chronic respiratory failure, unspecified whether with hypoxia or hypercapnia SNOMED: 27978059 (10) Diabetes mellitus type 2 in nonobese ICD Codes: E11.9 - Type 2 diabetes mellitus without complications SNOMED: 683413418 (11) CHF (congestive heart failure) ICD Codes: I50.9 - Heart failure, unspecified SNOMED: 93670692 Qualifiers: Qualified Codes: I50.9 - Heart failure, unspecified (12) Hypoxia ICD Codes: R09.02 - Hypoxemia SNOMED: 362491143 (13) Elevated d-dimer ICD Codes: R79.89 - Other specified abnormal findings of blood chemistry SNOMED: 193652607 (14) Schizophrenia ICD Codes: F20.9 - Schizophrenia, unspecified SNOMED: 63820275 (15) Parkinson disease ICD Codes: G20 - Parkinson's disease SNOMED: 27405014 Status: progressing Assessment/Plan: resp failure check sugar reviewed chart and labs supportive rx pna chf needs fluid management covid negative pleural effusion Subjective ROS Limited/Unobtainable: Yes Allergies: Coded Allergies: LITHIUM (Verified Allergy, Unknown, 02/07/19) Objective Last 24 Hour Vital Signs Date Time Temp Pulse Resp B/P (MAP) Pulse Ox O2 Delivery O2 Flow Rate FiO2 7/9/20 20:37 19 120/43 Mechanical Ventilator 40 12/20/19 20:00 40 12/20/19 20:00 Mechanical Ventilator 12/20/19 20:00 99.0 81 19 122/45 (70) 94 12/20/19 19:30 88 21 40 12/20/19 19:21 81 12/20/19 19:00 79 16 121/46 (71) 96 12/20/19 18:30 84 20 126/47 (73) 97 12/20/19 18:00 82 17 123/47 (72) 97 12/20/19 17:30 75 15 118/44 (68) 98 12/20/19 17:00 80 17 114/41 (65) 99 12/20/19 16:30 76 15 115/43 (67) 99 12/20/19 16:09 75 12/20/19 16:00 99.2 76 16 109/41 (63) 97 12/20/19 16:00 Mechanical Ventilator 12/20/19 15:30 79 17 112/43 (66) 96 12/20/19 15:00 40 12/20/19 15:00 85 21 133/58 (83) 97 12/20/19 15:00 76 16 40 12/20/19 14:30 90 18 122/48 (72) 95 12/20/19 14:00 85 16 116/46 (69) 95 12/20/19 13:30 88 17 118/47 (70) 95 12/20/19 13:00 87 18 115/46 (69) 94 12/20/19 12:44 84 12/20/19 12:30 86 15 112/45 (67) 95 12/20/19 12:00 Mechanical Ventilator 12/20/19 12:00 40 12/20/19 12:00 98.4 91 16 129/61 (83) 93 12/20/19 11:46 96 12/20/19 11:40 40 12/20/19 11:30 83 24 117/44 (68) 95 12/20/19 11:27 81 13 50 12/20/19 11:00 20 12/49 Endotracheal Tube 40 12/20/19 11:00 81 20 123/49 (73) 94 12/20/19 10:30 82 22 113/48 (69) 93 12/20/19 10:00 84 21 116/48 (70) 94 12/20/19 10:00 21 116/48 Endotracheal Tube 40 12/20/19 09:30 80 21 116/49 (71) 92 12/20/19 09:00 14 118/49 Endotracheal Tube 40 12/20/19 09:00 80 14 118/49 (72) 92 12/20/19 08:30 76 18 110/44 (66) 94 12/20/19 08:09 80 12/20/19 08:00 Mechanical Ventilator 12/20/19 08:00 18 121/48 Endotracheal Tube 40 12/20/19 08:00 98.5 78 19 121/48 (72) 97 12/20/19 08:00 40 12/20/19 07:12 80 19 50 12/20/19 07:00 17 110/41 Mechanical Ventilator 50 12/20/19 07:00 68 17 110/41 (64) 98 12/20/19 06:30 69 18 112/43 (66) 94 12/20/19 06:30 69 18 12/20/19 06:00 19 93/63 Mechanical Ventilator 50 12/20/19 06:00 69 19 93/63 (73) 95 12/20/19 05:30 66 18 109/42 (64) 96 12/20/19 05:00 17 108/41 Mechanical Ventilator 50 12/20/19 05:00 67 17 108/41 (63) 97 12/20/19 04:30 68 19 112/43 (66) 95 12/20/19 04:00 Mechanical Ventilator 12/20/19 04:00 98.6 69 18 108/41 (63) 98 12/20/19 04:00 50 12/20/19 04:00 18 108/41 Mechanical Ventilator 50 12/20/19 03:30 71 18 108/42 (64) 97 12/20/19 03:24 74 18 50 12/20/19 03:16 73 12/20/19 03:00 19 125/46 Mechanical Ventilator 50 12/20/19 03:00 77 19 125/46 (72) 97 12/20/19 02:30 71 22 113/44 (67) 100 12/20/19 02:00 64 21 110/40 (63) 99 12/20/19 02:00 21 110/40 Mechanical Ventilator 60 12/20/19 01:30 64 21 104/42 (62) 99 12/20/19 01:00 20 104/40 Mechanical Ventilator 60 12/20/19 01:00 65 20 104/40 (61) 99 12/20/19 00:30 64 20 105/40 (61) 100 12/20/19 00:00 20 104/39 Mechanical Ventilator 60 12/20/19 00:00 97.6 64 20 104/39 (60) 100 12/20/19 00:00 Mechanical Ventilator 12/20/19 00:00 64 12/20/19 00:00 60 12/19/19 23:30 65 20 101/40 (60) 99 12/19/19 23:00 65 20 104/41 (62) 100 12/19/19 23:00 20 104/41 Mechanical Ventilator 60 12/19/19 22:34 71 23 60 12/19/19 22:32 60 12/19/19 22:30 69 19 109/46 (67) 92 12/19/19 22:15 67 19 101/40 (60) 94 12/19/19 22:00 68 18 103/41 (61) 95 12/19/19 22:00 18 103/41 Mechanical Ventilator 40 12/19/19 21:30 67 18 96/47 (63) 92 Intake and Output 12/19/19 12/20/19 19:00 07:00 Intake Total 1450.0 ml 1551.5 ml Output Total 525 ml 435 ml Balance 925.0 ml 1116.5 ml Intake Free Water 30 ml IV Total 820.0 ml 871.5 ml Tube Feeding 600 ml 600 ml Other 80 ml Output Urine Total 525 ml 435 ml Laboratory Tests 12/19/19 23:16: POC Whole Blood Glucose 158H 12/20/19 04:20: White Blood Count 6.7, Red Blood Count 2.95L, Hemoglobin 9.5L, Hematocrit 30.4L , Mean Corpuscular Volume 103H, Mean Corpuscular Hemoglobin 32.2H, Mean Corpuscular Hemoglobin Concent 31.2L, Red Cell Distribution Width 13.4, Platelet Count 179, Mean Platelet Volume 7.0, Neutrophils (%) (Auto) , Lymphocytes (%) (Auto) , Monocytes (%) (Auto) , Eosinophils (%) (Auto) , Basophils (%) (Auto) , Sodium Level 150H, Potassium Level 4.1, Chloride Level 111H, Carbon Dioxide Level 31, Anion Gap 8, Blood Urea Nitrogen 31H, Creatinine 1.1, Estimat Glomerular Filtration Rate 47.8, Glucose Level 144H, Calcium Level 8.2L 12/20/19 05:22: POC Whole Blood Glucose 141H 12/20/19 08:09: Arterial Blood pH 7.408, Arterial Blood Partial Pressure CO2 52.7H, Arterial Blood Partial Pressure O2 79.4, Arterial Blood HCO3 32.5H, Arterial Blood Oxygen Saturation 94.6L, Arterial Blood Base Excess 6.7H, Raphael Test Positive 12/20/19 12:50: Arterial Blood pH 7.356, Arterial Blood Partial Pressure CO2 58.0*H, Arterial Blood Partial Pressure O2 106.2H, Arterial Blood HCO3 31.7H, Arterial Blood Oxygen Saturation 96.7, Arterial Blood Base Excess 5.1H, Raphael Test Positive Height (Feet): 5 Height (Inches): 7.00 Weight (Pounds): 217 Dani Perera MD Dec 20, 2019 21:07
--- NOTE | 2019-12-20 21:07 | NUR ---
NURSE NOTES: PATIENT OPEN EYES, ABLE TO EYE CONTACT, DENIED PAIN, CALM AND FOLLOWED COMMANDS AT THIS TIME, WILL CONTINUE TO MONITOR.
--- NOTE | 2019-12-20 22:40 | NUR ---
NURSE NOTES: PATIENT ASLEEP STATUS, CALM, DID NOT TOUCH LINE STATUS, DISCONTINUED 2 POINT SOFT RESTRAINTS, WILL CONTINUE TO MONITOR.
[2019-12-21] VITALS (28 sets, daily range): BP systolic 117–141; BP diastolic 41–72
--- NOTE | 2019-12-21 00:10 | NUR ---
NURSE NOTES: PATIENT AWOKE, RESISTANCE TO CARE, TRIED TO TOUCH LINE THAT APPLIED 2 POINT SOFT RESTRAINTS, WILL CONTINUE TO MONITOR.
--- NOTE | 2019-12-21 00:32 | NUR ---
HAND-OFF: Report given to DARREL ESTRADA.
--- NOTE | 2019-12-21 00:33 | NUR ---
NURSE NOTES: Patient received from ADRREL Singer. patient asleep arousable to name. patient with 7.5 ETT at 24cm lipline on ventilator AC 12 TV 450 FiO2 40% PEEP 5. left forearm #22 and right wrist #2 clean and asymptomatic running NS @50ml/hr. OGT running Vital AF 1.2 @ 50ml/hr. valerio catheter draining to gravity. skin warm dry with sacral redness noted covered with optifoam and patient on p200 mattress. will continue plan of care.
--- NOTE | 2019-12-21 02:00 | NUR ---
NURSE NOTES: patient asleep arousable to name. patient with 7.5 ETT at 24cm lipline on ventilator AC 12 TV 450 FiO2 40% PEEP 5. left forearm #22 and right wrist #2 clean and asymptomatic running NS @50ml/hr. OGT running Vital AF 1.2 @ 50ml/hr. valerio catheter draining light jovi urine. patient bathed, repositioned and oral care provided. will continue to monitor.
--- NOTE | 2019-12-21 04:00 | NUR ---
NURSE NOTES: patient asleep arousable to name. patient with 7.5 ETT at 24cm lip-line on ventilator AC 12 TV 450 FiO2 40% PEEP 5. BP 122/46 HR78 temp 99.3F axillary. left forearm #22 and right wrist #2 clean and asymptomatic running NS @50ml/hr. OGT running Vital AF 1.2 @ 50ml/hr. Ace catheter draining to gravity. patient repositioned and oral care provided. will continue to monitor.
[2019-12-21] MEDS: Piperacillin/Tazobactam 3.375 GM in NS 110 ML IVPB SCH ×3 (05:29→22:27)
[2019-12-21] MEDS: Solu-MEDROL 40mg Inj IVP SCH ×4 (05:29→23:29)
[2019-12-21] MEDS: NovoLOG Insulin Flexpen SUBQ SCH ×4 (05:36→23:29)
--- NOTE | 2019-12-21 06:00 | NUR ---
NURSE NOTES: patient asleep arousable and oriented to name with 7.5 ETT at 24cm lipline on ventilator AC 12 TV 450 FiO2 40% PEEP 5. BP 128/47 HR81. left forearm #22 and right wrist #2 clean and asymptomatic running NS @50ml/hr. OGT running Vital AF 1.2 @ 50ml/hr. valerio catheter draining to gravity. skin warm dry with sacral redness noted covered with optifoam and patient on p200 mattress.bilateral upper extremity edema noted. patient repositioned and oral care provided. will continue to monitor.
--- NOTE | 2019-12-21 07:06 | NUR ---
HAND-OFF: Report given to DARREL Villalba. endorsed plan of care.
--- NOTE | 2019-12-21 07:25 | NUR ---
NURSE NOTES: Received report from DARREL Valdez. Patient asleep and responsive to verbal, open her eyes with tracking. ETT 7.5/24cm at lip line with vent setting AC 12, VT 450, FiO2 40% and Peep 5. O2 Sat 95% on the monitor. OGT intact and running with Vital AF 1.2 @ 50ml/hr. Ace intact, patent and draining with jovi color urine. Left forearm 22G IV intact and running with NS @ 50ml/hr. Right wrist 22G IV intact and clean. Bilateral soft wrist bands restraints on. Both hands are warm to touch. kept dry, clean, comfortable and HOB>30. Will continue plan of care.
--- NOTE | 2019-12-21 07:58 | General Progress Note ---
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 - Other specified diabetes mellitus without complications SNOMED: 681479090 (2) Parkinson disease ICD Codes: G20 - Parkinson's disease SNOMED: 03719969 (3) Schizophrenia ICD Codes: F20.9 - Schizophrenia, unspecified SNOMED: 65116024 (4) Hypertension ICD Codes: I10 - Essential (primary) hypertension SNOMED: 43003074 (5) Respiratory failure ICD Codes: J96.90 - Respiratory failure, unspecified, unspecified whether with hypoxia or hypercapnia SNOMED: 421395975 (6) Hypothyroidism ICD Codes: E03.9 - Hypothyroidism, unspecified SNOMED: 30121095 Status: progressing Assessment/Plan: continue Levothyroxine 75 mcg IV daily continue Novolog sliding scale every 6 hours hypoglycemia protocol in order Subjective ROS Limited/Unobtainable: Yes Allergies: Coded Allergies: LITHIUM (Verified Allergy, Unknown, 02/07/19) Subjective events noted re intubated in icu glucose values are stable Item Value Date Time Bedside Blood Glucose 144 mg/dl H 12/21/19 0600 Bedside Blood Glucose 117 mg/dl 12/20/19 2335 Bedside Blood Glucose 117 mg/dl 12/20/19 1800 Bedside Blood Glucose 183 mg/dl H 12/20/19 1201 Objective Last 24 Hour Vital Signs Date Time Temp Pulse Resp B/P (MAP) Pulse Ox O2 Delivery O2 Flow Rate FiO2 12/21/19 07:05 77 16 40 12/21/19 07:00 75 18 120/42 (68) 95 12/21/19 06:10 81 18 12/21/19 06:00 81 18 128/47 (74) 98 12/21/19 05:00 75 17 117/43 (67) 96 12/21/19 04:00 76 12/21/19 04:00 Mechanical Ventilator 12/21/19 04:00 99.3 78 14 122/46 (71) 99 12/21/19 04:00 40 12/21/19 03:00 82 18 131/49 (76) 95 12/21/19 02:57 92 20 40 12/21/19 02:00 76 19 119/44 (69) 97 12/21/19 01:00 75 18 120/43 (68) 97 7/10/20 00:00 40 12/21/19 00:00 99.7 76 19 117/41 (66) 95 12/21/19 00:00 76 12/21/19 00:00 Mechanical Ventilator 12/20/19 23:05 84 19 40 12/20/19 23:00 76 19 114/41 (65) 93 12/20/19 22:00 80 20 119/43 (68) 96 12/20/19 21:00 78 18 118/45 (69) 95 12/20/19 20:37 19 120/43 Mechanical Ventilator 40 12/20/19 20:00 40 12/20/19 20:00 Mechanical Ventilator 12/20/19 20:00 99.0 81 19 122/45 (70) 94 12/20/19 19:30 88 21 40 12/20/19 19:21 81 12/20/19 19:00 79 16 121/46 (71) 96 12/20/19 18:30 84 20 126/47 (73) 97 12/20/19 18:00 82 17 123/47 (72) 97 12/20/19 17:30 75 15 118/44 (68) 98 12/20/19 17:00 80 17 114/41 (65) 99 12/20/19 16:30 76 15 115/43 (67) 99 12/20/19 16:09 75 12/20/19 16:00 99.2 76 16 109/41 (63) 97 12/20/19 16:00 Mechanical Ventilator 12/20/19 15:30 79 17 112/43 (66) 96 12/20/19 15:00 40 12/20/19 15:00 85 21 133/58 (83) 97 12/20/19 15:00 76 16 40 12/20/19 14:30 90 18 122/48 (72) 95 12/20/19 14:00 85 16 116/46 (69) 95 12/20/19 13:30 88 17 118/47 (70) 95 12/20/19 13:00 87 18 115/46 (69) 94 12/20/19 12:44 84 12/20/19 12:30 86 15 112/45 (67) 95 12/20/19 12:00 Mechanical Ventilator 12/20/19 12:00 40 12/20/19 12:00 98.4 91 16 129/61 (83) 93 12/20/19 11:46 96 12/20/19 11:40 40 12/20/19 11:30 83 24 117/44 (68) 95 12/20/19 11:27 81 13 50 12/20/19 11:00 20 12/49 Endotracheal Tube 40 12/20/19 11:00 81 20 123/49 (73) 94 12/20/19 10:30 82 22 113/48 (69) 93 12/20/19 10:00 84 21 116/48 (70) 94 12/20/19 10:00 21 116/48 Endotracheal Tube 40 12/20/19 09:30 80 21 116/49 (71) 92 12/20/19 09:00 14 118/49 Endotracheal Tube 40 12/20/19 09:00 80 14 118/49 (72) 92 12/20/19 08:30 76 18 110/44 (66) 94 12/20/19 08:09 80 12/20/19 08:00 Mechanical Ventilator 12/20/19 08:00 18 121/48 Endotracheal Tube 40 12/20/19 08:00 98.5 78 19 121/48 (72) 97 12/20/19 08:00 40 Intake and Output 12/20/19 12/21/19 19:00 07:00 Intake Total 1818.50 ml 1401.708 ml Output Total 510 ml 565 ml Balance 1308.50 ml 836.708 ml Intake Free Water 400 ml IV Total 818.50 ml 701.708 ml Tube Feeding 600 ml 600 ml Other 100 ml Output Urine Total 510 ml 565 ml Laboratory Tests 12/20/19 08:09: Arterial Blood pH 7.408, Arterial Blood Partial Pressure CO2 52.7H, Arterial Blood Partial Pressure O2 79.4, Arterial Blood HCO3 32.5H, Arterial Blood Oxygen Saturation 94.6L, Arterial Blood Base Excess 6.7H, Raphael Test Positive 12/20/19 12:50: Arterial Blood pH 7.356, Arterial Blood Partial Pressure CO2 58.0*H, Arterial Blood Partial Pressure O2 106.2H, Arterial Blood HCO3 31.7H, Arterial Blood Oxygen Saturation 96.7, Arterial Blood Base Excess 5.1H, Raphael Test Positive Height (Feet): 5 Height (Inches): 7.00 Weight (Pounds): 220 General Appearance: other - intubated EENT: other - ETT Respiratory/Chest: decreased breath sounds Abdomen: normal bowel sounds Objective Current Medications Medications (Trade) Dose Ordered Sig/Angie Route PRN Reason Start Time Stop Time Status Last Admin Dose Admin Acetaminophen (Tylenol) 650 mg Q6H PRN ORAL Mild Pain (Pain Scale 1-3) 12/12/19 12:30 01/11/20 12:29 Acetaminophen (Tylenol) 1,000 mg Q6H PRN ORAL MODERATE PAIN 12/12/19 12:30 01/11/20 12:29 Amantadine HCl (Symmetrel) 100 mg TWICE A DAY GT 12/15/19 18:00 01/11/20 08:59 12/20/19 17:34 Aspirin (ASA) 324 mg DAILY NG 12/21/19 09:00 02/04/20 08:59 Atorvastatin Calcium (Lipitor) 10 mg BEDTIME GT 12/15/19 21:00 03/11/20 20:59 12/20/19 20:36 Calcium Carbonate (Os-Octavio) 1,250 mg THREE TIMES A DAY GT 12/15/19 18:00 03/11/20 09:59 12/20/19 17:34 Clonidine HCl (Catapres Tab) 0.1 mg Q6H PRN GT For high BP over 160 systolic 12/15/19 16:30 03/11/20 12:30 Dextrose (Dextrose 50%) 25 ml Q30M PRN IV Hypoglycemia 12/13/19 07:15 03/12/20 07:14 Dextrose (Dextrose 50%) 50 ml Q30M PRN IV Hypoglycemia 12/13/19 07:15 03/12/20 07:14 Divalproex Sodium (Depakote Sprinkles) 250 mg EVERY 12 HOURS NG 12/13/19 21:00 01/12/20 20:59 12/20/19 20:37 Docusate Sodium (Colace) 100 mg TWICE A DAY NG 12/15/19 18:00 01/14/20 17:59 12/20/19 17:34 Fentanyl Citrate 250 ml @ 0 mls/hr Q24H IV 12/18/19 20:53 03/17/20 20:52 12/19/19 20:56 Haloperidol Lactate 5 mg/ Dextrose 56 ml @ 224 mls/hr Q6H PRN IVPB agitation 12/18/19 10:45 02/01/20 10:44 Insulin Aspart (NovoLOG) EVERY 6 HOURS SUBQ 12/13/19 12:00 03/12/20 11:59 12/21/19 05:36 Lactulose (Cephulac) 20 gm BID GT 12/19/19 18:00 01/18/20 17:59 12/20/19 17:34 Levothyroxine Sodium (Synthroid) 75 mcg DAILY IV 12/13/19 09:00 01/11/20 09:29 12/20/19 08:10 Methylprednisolone Sodium Succinate (Solu-MEDROL) 40 mg EVERY 6 HOURS IVP 12/19/19 12:00 03/18/20 11:59 12/21/19 05:29 Nitroglycerin (Ntg) 0.4 mg Q5MIN X 3 DOSES PRN SL CHEST PAIN 12/12/19 12:00 01/10/20 21:44 Olanzapine (ZyPREXA) 5 mg BID GT 12/15/19 18:00 01/26/20 08:59 12/20/19 17:34 Pantoprazole (Protonix) 40 mg EVERY 12 HOURS IVP 12/14/19 09:00 01/13/20 08:59 12/20/19 20:36 Phosphorus (Phospha 250 Neutral) 250 mg THREE TIMES A DAY GT 12/15/19 09:00 01/14/20 08:59 12/20/19 17:34 Piperacillin Sod/ Tazobactam Sod 3.375 gm/Sodium Chloride 110 ml @ 27.5 mls/hr EVERY 8 HOURS IVPB 12/19/19 14:00 12/24/19 13:59 12/21/19 05:29 Polyethylene Glycol (Miralax) 17 gm BEDTIME GT 12/19/19 21:00 01/18/20 20:59 12/20/19 20:37 Sodium Chloride 1,000 ml @ 50 mls/hr Q20H IV 12/12/19 12:30 01/11/20 12:29 12/20/19 20:02 Jabari Adams MD Dec 21, 2019 07:58
--- NOTE | 2019-12-21 08:12 | General Progress Note ---
Assessment/Plan Status: progressing Assessment/Plan: Assessment - Resp failure - r/o COVID -- x 2 negative - COPD - HTN - Anemia - Abnormal LFT Recommendations - TF - Elevate HOB - abx - follow labs - f/u hepatitis serologies>>> neg - mirakax and lactulose -repeat labs Subjective ROS Limited/Unobtainable: No Allergies: Coded Allergies: LITHIUM (Verified Allergy, Unknown, 02/07/19) Objective Last 24 Hour Vital Signs Date Time Temp Pulse Resp B/P (MAP) Pulse Ox O2 Delivery O2 Flow Rate FiO2 12/21/19 07:05 77 16 40 12/21/19 07:00 75 18 120/42 (68) 95 12/21/19 06:10 81 18 12/21/19 06:00 81 18 128/47 (74) 98 12/21/19 05:00 75 17 117/43 (67) 96 12/21/19 04:00 76 12/21/19 04:00 Mechanical Ventilator 12/21/19 04:00 99.3 78 14 122/46 (71) 99 12/21/19 04:00 40 12/21/19 03:00 82 18 131/49 (76) 95 12/21/19 02:57 92 20 40 12/21/19 02:00 76 19 119/44 (69) 97 12/21/19 01:00 75 18 120/43 (68) 97 12/21/19 00:00 40 12/21/19 00:00 99.7 76 19 117/41 (66) 95 12/21/19 00:00 76 12/21/19 00:00 Mechanical Ventilator 12/20/19 23:05 84 19 40 12/20/19 23:00 76 19 114/41 (65) 93 12/20/19 22:00 80 20 119/43 (68) 96 12/20/19 21:00 78 18 118/45 (69) 95 12/20/19 20:37 19 120/43 Mechanical Ventilator 40 12/20/19 20:00 40 12/20/19 20:00 Mechanical Ventilator 12/20/19 20:00 99.0 81 19 122/45 (70) 94 12/20/19 19:30 88 21 40 12/20/19 19:21 81 12/20/19 19:00 79 16 121/46 (71) 96 12/20/19 18:30 84 20 126/47 (73) 97 12/20/19 18:00 82 17 123/47 (72) 97 12/20/19 17:30 75 15 118/44 (68) 98 12/20/19 17:00 80 17 114/41 (65) 99 12/20/19 16:30 76 15 115/43 (67) 99 12/20/19 16:09 75 12/20/19 16:00 99.2 76 16 109/41 (63) 97 12/20/19 16:00 Mechanical Ventilator 12/20/19 15:30 79 17 112/43 (66) 96 12/20/19 15:00 40 12/20/19 15:00 85 21 133/58 (83) 97 12/20/19 15:00 76 16 40 12/20/19 14:30 90 18 122/48 (72) 95 12/20/19 14:00 85 16 116/46 (69) 95 12/20/19 13:30 88 17 118/47 (70) 95 12/20/19 13:00 87 18 115/46 (69) 94 12/20/19 12:44 84 12/20/19 12:30 86 15 112/45 (67) 95 12/20/19 12:00 Mechanical Ventilator 12/20/19 12:00 40 12/20/19 12:00 98.4 91 16 129/61 (83) 93 12/20/19 11:46 96 12/20/19 11:40 40 12/20/19 11:30 83 24 117/44 (68) 95 12/20/19 11:27 81 13 50 12/20/19 11:00 20 12/49 Endotracheal Tube 40 12/20/19 11:00 81 20 123/49 (73) 94 12/20/19 10:30 82 22 113/48 (69) 93 12/20/19 10:00 84 21 116/48 (70) 94 12/20/19 10:00 21 116/48 Endotracheal Tube 40 12/20/19 09:30 80 21 116/49 (71) 92 12/20/19 09:00 14 118/49 Endotracheal Tube 40 12/20/19 09:00 80 14 118/49 (72) 92 12/20/19 08:30 76 18 110/44 (66) 94 Intake and Output 12/20/19 12/21/19 19:00 07:00 Intake Total 1818.50 ml 1401.708 ml Output Total 510 ml 565 ml Balance 1308.50 ml 836.708 ml Intake Free Water 400 ml IV Total 818.50 ml 701.708 ml Tube Feeding 600 ml 600 ml Other 100 ml Output Urine Total 510 ml 565 ml Laboratory Tests 12/20/19 12:50: Arterial Blood pH 7.356, Arterial Blood Partial Pressure CO2 58.0*H, Arterial Blood Partial Pressure O2 106.2H, Arterial Blood HCO3 31.7H, Arterial Blood Oxygen Saturation 96.7, Arterial Blood Base Excess 5.1H, Raphael Test Positive Height (Feet): 5 Height (Inches): 7.00 Weight (Pounds): 220 General Appearance: no apparent distress EENT: normal ENT inspection Neck: supple Cardiovascular: normal rate Respiratory/Chest: decreased breath sounds Abdomen: normal bowel sounds, non tender, soft Extremities: non-tender Kirk Vidal MD Dec 21, 2019 08:12
[2019-12-21] MEDS: Lactulose 20gm/30ml UDC GT SCH ×2 (08:40→17:13)
[2019-12-21] MEDS: Docusate 100mg/10ml Liq NG SCH ×2 (08:40→17:13)
[2019-12-21] MEDS: Pantoprazole Inj IVP SCH ×2 (08:41→22:27)
[2019-12-21] MEDS: Phospha 250 Neutral tab GT SCH ×3 (08:41→17:13)
[2019-12-21] MEDS: Depakote 125mg Sprinkles NG SCH ×2 (08:41→20:18)
[2019-12-21] MEDS: Amantadine 100mg cap GT SCH ×2 (08:41→17:13)
[2019-12-21] MEDS: Aspirin Baby 81mg NG SCH (08:41)
[2019-12-21] MEDS: Os-Cal (Oyster Shell) 500mg tab GT SCH ×3 (08:41→17:13)
--- NOTE | 2019-12-21 09:20 | General Progress Note ---
Assessment/Plan Problem List: (1) Dyspnea ICD Codes: R06.00 - Dyspnea, unspecified SNOMED: 677796389 (2) Hypothyroidism ICD Codes: E03.9 - Hypothyroidism, unspecified SNOMED: 30389493 (3) Obese ICD Codes: E66.9 - Obesity, unspecified SNOMED: 032935085, 467952652 (4) Psychosis ICD Codes: F29 - Unspecified psychosis not due to a substance or known physiological condition SNOMED: 92323178 (5) Respiratory failure ICD Codes: J96.90 - Respiratory failure, unspecified, unspecified whether with hypoxia or hypercapnia SNOMED: 668380300 (6) Respiratory distress ICD Codes: R06.03 - Acute respiratory distress SNOMED: 143582910 (7) Dyspnea ICD Codes: R06.00 - Dyspnea, unspecified SNOMED: 295158825 (8) Pneumonia ICD Codes: J18.9 - Pneumonia, unspecified organism SNOMED: 676135191 (9) Acute and chronic respiratory failure ICD Codes: J96.20 - Acute and chronic respiratory failure, unspecified whether with hypoxia or hypercapnia SNOMED: 99010536 (10) Diabetes mellitus type 2 in nonobese ICD Codes: E11.9 - Type 2 diabetes mellitus without complications SNOMED: 447059630 (11) CHF (congestive heart failure) ICD Codes: I50.9 - Heart failure, unspecified SNOMED: 73241787 Qualifiers: Qualified Codes: I50.9 - Heart failure, unspecified (12) Hypoxia ICD Codes: R09.02 - Hypoxemia SNOMED: 655969041 (13) Elevated d-dimer ICD Codes: R79.89 - Other specified abnormal findings of blood chemistry SNOMED: 576467508 (14) Schizophrenia ICD Codes: F20.9 - Schizophrenia, unspecified SNOMED: 12007937 (15) Parkinson disease ICD Codes: G20 - Parkinson's disease SNOMED: 16607919 Status: progressing Assessment/Plan: copd hypernatremia all cultures are negative except mrsa of nares supportive rx chf needs fluid management covid negative pleural effusion Subjective ROS Limited/Unobtainable: Yes Allergies: Coded Allergies: LITHIUM (Verified Allergy, Unknown, 02/07/19) Objective Last 24 Hour Vital Signs Date Time Temp Pulse Resp B/P (MAP) Pulse Ox O2 Delivery O2 Flow Rate FiO2 12/21/19 07:05 77 16 40 12/21/19 07:00 75 18 120/42 (68) 95 12/21/19 06:10 81 18 12/21/19 06:00 81 18 128/47 (74) 98 12/21/19 05:00 75 17 117/43 (67) 96 12/21/19 04:00 76 12/21/19 04:00 Mechanical Ventilator 12/21/19 04:00 99.3 78 14 122/46 (71) 99 12/21/19 04:00 40 12/21/19 03:00 82 18 131/49 (76) 95 12/21/19 02:57 92 20 40 12/21/19 02:00 76 19 119/44 (69) 97 12/21/19 01:00 75 18 120/43 (68) 97 12/21/19 00:00 40 12/21/19 00:00 99.7 76 19 117/41 (66) 95 12/21/19 00:00 76 12/21/19 00:00 Mechanical Ventilator 12/20/19 23:05 84 19 40 12/20/19 23:00 76 19 114/41 (65) 93 12/20/19 22:00 80 20 119/43 (68) 96 12/20/19 21:00 78 18 118/45 (69) 95 12/20/19 20:37 19 120/43 Mechanical Ventilator 40 12/20/19 20:00 40 12/20/19 20:00 Mechanical Ventilator 12/20/19 20:00 99.0 81 19 122/45 (70) 94 12/20/19 19:30 88 21 40 12/20/19 19:21 81 12/20/19 19:00 79 16 121/46 (71) 96 12/20/19 18:30 84 20 126/47 (73) 97 12/20/19 18:00 82 17 123/47 (72) 97 12/20/19 17:30 75 15 118/44 (68) 98 12/20/19 17:00 80 17 114/41 (65) 99 12/20/19 16:30 76 15 115/43 (67) 99 12/20/19 16:09 75 12/20/19 16:00 99.2 76 16 109/41 (63) 97 12/20/19 16:00 Mechanical Ventilator 12/20/19 15:30 79 17 112/43 (66) 96 12/20/19 15:00 40 12/20/19 15:00 85 21 133/58 (83) 97 12/20/19 15:00 76 16 40 12/20/19 14:30 90 18 122/48 (72) 95 12/20/19 14:00 85 16 116/46 (69) 95 12/20/19 13:30 88 17 118/47 (70) 95 12/20/19 13:00 87 18 115/46 (69) 94 12/20/19 12:44 84 12/20/19 12:30 86 15 112/45 (67) 95 12/20/19 12:00 Mechanical Ventilator 12/20/19 12:00 40 12/20/19 12:00 98.4 91 16 129/61 (83) 93 12/20/19 11:46 96 12/20/19 11:40 40 12/20/19 11:30 83 24 117/44 (68) 95 12/20/19 11:27 81 13 50 12/20/19 11:00 20 12/49 Endotracheal Tube 40 12/20/19 11:00 81 20 123/49 (73) 94 12/20/19 10:30 82 22 113/48 (69) 93 12/20/19 10:00 84 21 116/48 (70) 94 12/20/19 10:00 21 116/48 Endotracheal Tube 40 12/20/19 09:30 80 21 116/49 (71) 92 Intake and Output 12/20/19 12/21/19 19:00 07:00 Intake Total 1818.50 ml 1401.708 ml Output Total 510 ml 565 ml Balance 1308.50 ml 836.708 ml Intake Free Water 400 ml IV Total 818.50 ml 701.708 ml Tube Feeding 600 ml 600 ml Other 100 ml Output Urine Total 510 ml 565 ml Laboratory Tests 12/20/19 12:50: Arterial Blood pH 7.356, Arterial Blood Partial Pressure CO2 58.0*H, Arterial Blood Partial Pressure O2 106.2H, Arterial Blood HCO3 31.7H, Arterial Blood Oxygen Saturation 96.7, Arterial Blood Base Excess 5.1H, Raphael Test Positive Height (Feet): 5 Height (Inches): 7.00 Weight (Pounds): 220 Dani Perera MD Dec 21, 2019 09:20
--- NOTE | 2019-12-21 10:42 | NUR ---
NURSE NOTES: Seen by Dr. Davies and assessed patient. Venous duplex bilateral upper arms is ordered. Will continue plan of care.
--- NOTE | 2019-12-21 10:55 | NUR ---
NURSE NOTES: Seen by Dr. Myers and assessed patient. ABG ordered after 30min. Patient is on CPAP PS 8, FiO2 40% and Peep 5. Will follow up.
--- NOTE | 2019-12-21 11:15 | NUR ---
CASE MANAGEMENT: REVIEW 12/21/2019 SI:Acute and chronic respiratory failure. COVID (-) 7 T 99.2 HR 74 RR 17 B/P 119/41 SATS 96% ON MECH VENT FIO2 40 LABS: NONE TODAY IS:NS IV @ 50 ML/HR INSULIN ASPART SUBQ AC/HS SOLU MEDROL IV Q6H ZOSYN IV Q8H LIPITOR GT QHS LACTULOSE GT BID ASA GT QD ICU DCP: [facility] PLAN OF CARE: VENOUS DUPLEX ABGs GLYCEMIC MONITORING AND CONTROL
--- NOTE | 2019-12-21 11:19 | Infectious Diseases Prog Note ---
Assessment/Plan Assessment/Plan IMPRESSION: COPD exacerbation, Pneumonia, COID19 X 2: negative Acute respiratory failure with hypercapnia Dementia, Parkinson, Mitral valve regurgitation, Hypertension, Hypothyroidism. Hypokalemia RECOMMENDATION: Change Julieta Case was D/W RN Subjective ROS Limited/Unobtainable: Yes Respiratory: Reports: other - on weaning process Allergies: Coded Allergies: LITHIUM (Verified Allergy, Unknown, 02/07/19) Objective Last 24 Hour Vital Signs Date Time Temp Pulse Resp B/P (MAP) Pulse Ox O2 Delivery O2 Flow Rate FiO2 12/21/19 09:00 79 22 126/46 (72) 96 12/21/19 08:00 Mechanical Ventilator 12/21/19 08:00 40 12/21/19 08:00 99.2 74 17 119/41 (67) 96 12/21/19 07:05 77 16 40 12/21/19 07:00 75 18 120/42 (68) 95 12/21/19 06:10 81 18 12/21/19 06:00 81 18 128/47 (74) 98 12/21/19 05:00 75 17 117/43 (67) 96 12/21/19 04:00 76 12/21/19 04:00 Mechanical Ventilator 12/21/19 04:00 99.3 78 14 122/46 (71) 99 12/21/19 04:00 40 12/21/19 03:00 82 18 131/49 (76) 95 12/21/19 02:57 92 20 40 12/21/19 02:00 76 19 119/44 (69) 97 12/21/19 01:00 75 18 120/43 (68) 97 12/21/19 00:00 40 12/21/19 00:00 99.7 76 19 117/41 (66) 95 12/21/19 00:00 76 12/21/19 00:00 Mechanical Ventilator 12/20/19 23:05 84 19 40 12/20/19 23:00 76 19 114/41 (65) 93 12/20/19 22:00 80 20 119/43 (68) 96 12/20/19 21:00 78 18 118/45 (69) 95 12/20/19 20:37 19 120/43 Mechanical Ventilator 40 12/20/19 20:00 40 12/20/19 20:00 Mechanical Ventilator 12/20/19 20:00 99.0 81 19 122/45 (70) 94 12/20/19 19:30 88 21 40 12/20/19 19:21 81 12/20/19 19:00 79 16 121/46 (71) 96 12/20/19 18:30 84 20 126/47 (73) 97 12/20/19 18:00 82 17 123/47 (72) 97 12/20/19 17:30 75 15 118/44 (68) 98 12/20/19 17:00 80 17 114/41 (65) 99 12/20/19 16:30 76 15 115/43 (67) 99 12/20/19 16:09 75 12/20/19 16:00 99.2 76 16 109/41 (63) 97 12/20/19 16:00 Mechanical Ventilator 12/20/19 15:30 79 17 112/43 (66) 96 12/20/19 15:00 40 12/20/19 15:00 85 21 133/58 (83) 97 12/20/19 15:00 76 16 40 12/20/19 14:30 90 18 122/48 (72) 95 12/20/19 14:00 85 16 116/46 (69) 95 12/20/19 13:30 88 17 118/47 (70) 95 12/20/19 13:00 87 18 115/46 (69) 94 12/20/19 12:44 84 12/20/19 12:30 86 15 112/45 (67) 95 12/20/19 12:00 Mechanical Ventilator 12/20/19 12:00 40 12/20/19 12:00 98.4 91 16 129/61 (83) 93 12/20/19 11:46 96 12/20/19 11:40 40 12/20/19 11:30 83 24 117/44 (68) 95 12/20/19 11:27 81 13 50 Height (Feet): 5 Height (Inches): 7.00 Weight (Pounds): 220 HEENT: other - orally intubated Respiratory/Chest: decreased breath sounds, other - on ventilator Cardiovascular: normal rate Abdomen: soft, non tender Extremities: other - hands edema Neurologic/Psychiatric: other - sleeping Laboratory Tests Test 12/20/19 12:50 Arterial Blood pH 7.356 (7.350-7.450) Arterial Blood Partial Pressure CO2 58.0 mmHg (35.0-45.0) *H Arterial Blood Partial Pressure O2 106.2 mmHg (75.0-100.0) H Arterial Blood HCO3 31.7 mmol/L (22.0-26.0) H Arterial Blood Oxygen Saturation 96.7 % (95-100) Arterial Blood Base Excess 5.1 (-2-2) H Raphael Test Positive Current Medications Medications (Trade) Dose Ordered Sig/Angie Route PRN Reason Start Time Stop Time Status Last Admin Dose Admin Acetaminophen (Tylenol) 650 mg Q6H PRN ORAL Mild Pain (Pain Scale 1-3) 12/12/19 12:30 01/11/20 12:29 Acetaminophen (Tylenol) 1,000 mg Q6H PRN ORAL MODERATE PAIN 12/12/19 12:30 01/11/20 12:29 Amantadine HCl (Symmetrel) 100 mg TWICE A DAY GT 12/15/19 18:00 01/11/20 08:59 12/21/19 08:41 Aspirin (ASA) 324 mg DAILY NG 12/21/19 09:00 02/04/20 08:59 12/21/19 08:41 Atorvastatin Calcium (Lipitor) 10 mg BEDTIME GT 12/15/19 21:00 03/11/20 20:59 12/20/19 20:36 Calcium Carbonate (Os-Octavio) 1,250 mg THREE TIMES A DAY GT 12/15/19 18:00 03/11/20 09:59 12/21/19 08:41 Clonidine HCl (Catapres Tab) 0.1 mg Q6H PRN GT For high BP over 160 systolic 12/15/19 16:30 03/11/20 12:30 Dextrose (Dextrose 50%) 25 ml Q30M PRN IV Hypoglycemia 12/13/19 07:15 03/12/20 07:14 Dextrose (Dextrose 50%) 50 ml Q30M PRN IV Hypoglycemia 12/13/19 07:15 03/12/20 07:14 Divalproex Sodium (Depakote Sprinkles) 250 mg EVERY 12 HOURS NG 12/13/19 21:00 01/12/20 20:59 12/21/19 08:41 Docusate Sodium (Colace) 100 mg TWICE A DAY NG 12/15/19 18:00 01/14/20 17:59 12/21/19 08:40 Fentanyl Citrate 250 ml @ 0 mls/hr Q24H IV 12/18/19 20:53 03/17/20 20:52 12/19/19 20:56 Haloperidol Lactate 5 mg/ Dextrose 56 ml @ 224 mls/hr Q6H PRN IVPB agitation 12/18/19 10:45 02/01/20 10:44 Insulin Aspart (NovoLOG) EVERY 6 HOURS SUBQ 12/13/19 12:00 03/12/20 11:59 12/21/19 05:36 Lactulose (Cephulac) 20 gm BID GT 12/19/19 18:00 01/18/20 17:59 12/21/19 08:40 Levothyroxine Sodium (Synthroid) 75 mcg DAILY IV 12/13/19 09:00 01/11/20 09:29 12/21/19 09:16 Methylprednisolone Sodium Succinate (Solu-MEDROL) 40 mg EVERY 6 HOURS IVP 12/19/19 12:00 03/18/20 11:59 12/21/19 05:29 Nitroglycerin (Ntg) 0.4 mg Q5MIN X 3 DOSES PRN SL CHEST PAIN 12/12/19 12:00 01/10/20 21:44 Olanzapine (ZyPREXA) 5 mg BID GT 12/15/19 18:00 01/26/20 08:59 12/21/19 08:41 Pantoprazole (Protonix) 40 mg EVERY 12 HOURS IVP 12/14/19 09:00 01/13/20 08:59 12/21/19 08:41 Phosphorus (Phospha 250 Neutral) 250 mg THREE TIMES A DAY GT 12/15/19 09:00 01/14/20 08:59 12/21/19 08:41 Piperacillin Sod/ Tazobactam Sod 3.375 gm/Sodium Chloride 110 ml @ 27.5 mls/hr EVERY 8 HOURS IVPB 12/19/19 14:00 12/24/19 13:59 12/21/19 05:29 Polyethylene Glycol (Miralax) 17 gm BEDTIME GT 12/19/19 21:00 01/18/20 20:59 12/20/19 20:37 Sodium Chloride 1,000 ml @ 50 mls/hr Q20H IV 12/12/19 12:30 01/11/20 12:29 12/20/19 20:02 Lei Chan MD Dec 21, 2019 11:19
--- NOTE | 2019-12-21 11:41 | Hematology/Onc Progress Note ---
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 ( combination of moderate aortic regurgitation and severe mitral regurgitation) --> diuresis as per cards --> lasix last time # Severe ascending aortic dilatation --> per Dr Keke campbell # Hypertension # Parkinson disease # Hyperlipidemia # Hypothyroidism # Dementia # Obesity # Schizophrenia --> as per Farhadi --> restraints # Dvt ppx lovenox sq/scd's Appreciate surgical consultant care and alexei Cueva Subjective Allergies: Coded Allergies: LITHIUM (Verified Allergy, Unknown, 02/07/19) All Systems: reviewed and negative except above Subjective / labs are reviewed, intubated, with og, somewhat responsive, alexei rn 7/ labs noted, hgb 7.8, tfs ok to start per gi 12/15 icu, restraints, no acute events, hep panel negative, sedated 12/16 no bleeding, in the icu, on abx, in restarints, sleepy, vent 12/17 is on vent, also is on abx, awake, with ogt 7/8 ng placed, hgb 9.6, no bleeding, no night sweats 12/19 labs reviewed, sedated, on vent, nob leeding, meds reviewed 12/20 remains on vent, audra bleeding, meds reviewed, no night sweats Objective Objective Current Medications Medications (Trade) Dose Ordered Sig/Angie Route PRN Reason Start Time Stop Time Status Last Admin Dose Admin Acetaminophen (Tylenol) 650 mg Q6H PRN ORAL Mild Pain (Pain Scale 1-3) 12/12/19 12:30 01/11/20 12:29 Acetaminophen (Tylenol) 1,000 mg Q6H PRN ORAL MODERATE PAIN 12/12/19 12:30 01/11/20 12:29 Amantadine HCl (Symmetrel) 100 mg TWICE A DAY GT 12/15/19 18:00 01/11/20 08:59 12/21/19 08:41 Aspirin (ASA) 324 mg DAILY NG 12/21/19 09:00 02/04/20 08:59 12/21/19 08:41 Atorvastatin Calcium (Lipitor) 10 mg BEDTIME GT 12/15/19 21:00 03/11/20 20:59 12/20/19 20:36 Calcium Carbonate (Os-Octavio) 1,250 mg THREE TIMES A DAY GT 12/15/19 18:00 03/11/20 09:59 12/21/19 08:41 Clonidine HCl (Catapres Tab) 0.1 mg Q6H PRN GT For high BP over 160 systolic 12/15/19 16:30 03/11/20 12:30 Dextrose (Dextrose 50%) 25 ml Q30M PRN IV Hypoglycemia 12/13/19 07:15 03/12/20 07:14 Dextrose (Dextrose 50%) 50 ml Q30M PRN IV Hypoglycemia 12/13/19 07:15 03/12/20 07:14 Divalproex Sodium (Depakote Sprinkles) 250 mg EVERY 12 HOURS NG 12/13/19 21:00 01/12/20 20:59 12/21/19 08:41 Docusate Sodium (Colace) 100 mg TWICE A DAY NG 12/15/19 18:00 01/14/20 17:59 12/21/19 08:40 Fentanyl Citrate 250 ml @ 0 mls/hr Q24H IV 12/18/19 20:53 03/17/20 20:52 12/19/19 20:56 Haloperidol Lactate 5 mg/ Dextrose 56 ml @ 224 mls/hr Q6H PRN IVPB agitation 12/18/19 10:45 02/01/20 10:44 Insulin Aspart (NovoLOG) EVERY 6 HOURS SUBQ 12/13/19 12:00 03/12/20 11:59 12/21/19 05:36 Lactulose (Cephulac) 20 gm BID GT 12/19/19 18:00 01/18/20 17:59 12/21/19 08:40 Levothyroxine Sodium (Synthroid) 75 mcg DAILY IV 12/13/19 09:00 01/11/20 09:29 12/21/19 09:16 Methylprednisolone Sodium Succinate (Solu-MEDROL) 40 mg EVERY 6 HOURS IVP 12/19/19 12:00 03/18/20 11:59 12/21/19 05:29 Nitroglycerin (Ntg) 0.4 mg Q5MIN X 3 DOSES PRN SL CHEST PAIN 12/12/19 12:00 01/10/20 21:44 Olanzapine (ZyPREXA) 5 mg BID GT 12/15/19 18:00 01/26/20 08:59 12/21/19 08:41 Pantoprazole (Protonix) 40 mg EVERY 12 HOURS IVP 12/14/19 09:00 01/13/20 08:59 12/21/19 08:41 Phosphorus (Phospha 250 Neutral) 250 mg THREE TIMES A DAY GT 12/15/19 09:00 01/14/20 08:59 12/21/19 08:41 Piperacillin Sod/ Tazobactam Sod 3.375 gm/Sodium Chloride 110 ml @ 27.5 mls/hr EVERY 8 HOURS IVPB 12/19/19 14:00 12/24/19 13:59 12/21/19 05:29 Polyethylene Glycol (Miralax) 17 gm BEDTIME GT 12/19/19 21:00 01/18/20 20:59 12/20/19 20:37 Sodium Chloride 1,000 ml @ 50 mls/hr Q20H IV 12/12/19 12:30 01/11/20 12:29 12/20/19 20:02 Last 24 Hour Vital Signs Date Time Temp Pulse Resp B/P (MAP) Pulse Ox O2 Delivery O2 Flow Rate FiO2 12/21/19 09:00 79 22 126/46 (72) 96 12/21/19 08:00 Mechanical Ventilator 12/21/19 08:00 40 12/21/19 08:00 99.2 74 17 119/41 (67) 96 12/21/19 07:05 77 16 40 12/21/19 07:00 75 18 120/42 (68) 95 12/21/19 06:10 81 18 12/21/19 06:00 81 18 128/47 (74) 98 12/21/19 05:00 75 17 117/43 (67) 96 12/21/19 04:00 76 12/21/19 04:00 Mechanical Ventilator 12/21/19 04:00 99.3 78 14 122/46 (71) 99 12/21/19 04:00 40 12/21/19 03:00 82 18 131/49 (76) 95 12/21/19 02:57 92 20 40 12/21/19 02:00 76 19 119/44 (69) 97 12/21/19 01:00 75 18 120/43 (68) 97 12/21/19 00:00 40 12/21/19 00:00 99.7 76 19 117/41 (66) 95 12/21/19 00:00 76 12/21/19 00:00 Mechanical Ventilator 12/20/19 23:05 84 19 40 12/20/19 23:00 76 19 114/41 (65) 93 12/20/19 22:00 80 20 119/43 (68) 96 12/20/19 21:00 78 18 118/45 (69) 95 12/20/19 20:37 19 120/43 Mechanical Ventilator 40 12/20/19 20:00 40 12/20/19 20:00 Mechanical Ventilator 12/20/19 20:00 99.0 81 19 122/45 (70) 94 12/20/19 19:30 88 21 40 12/20/19 19:21 81 12/20/19 19:00 79 16 121/46 (71) 96 12/20/19 18:30 84 20 126/47 (73) 97 12/20/19 18:00 82 17 123/47 (72) 97 12/20/19 17:30 75 15 118/44 (68) 98 12/20/19 17:00 80 17 114/41 (65) 99 12/20/19 16:30 76 15 115/43 (67) 99 12/20/19 16:09 75 12/20/19 16:00 99.2 76 16 109/41 (63) 97 12/20/19 16:00 Mechanical Ventilator 12/20/19 15:30 79 17 112/43 (66) 96 12/20/19 15:00 40 12/20/19 15:00 85 21 133/58 (83) 97 12/20/19 15:00 76 16 40 12/20/19 14:30 90 18 122/48 (72) 95 12/20/19 14:00 85 16 116/46 (69) 95 12/20/19 13:30 88 17 118/47 (70) 95 12/20/19 13:00 87 18 115/46 (69) 94 12/20/19 12:44 84 12/20/19 12:30 86 15 112/45 (67) 95 12/20/19 12:00 Mechanical Ventilator 12/20/19 12:00 40 12/20/19 12:00 98.4 91 16 129/61 (83) 93 12/20/19 11:46 96 12/20/19 11:40 40 12/20/19 11:30 83 24 117/44 (68) 95 12/20/19 11:27 81 13 50 12/20/19 11:00 20 12/49 Endotracheal Tube 40 12/20/19 11:00 81 20 123/49 (73) 94 12/20/19 10:30 82 22 113/48 (69) 93 12/20/19 10:00 84 21 116/48 (70) 94 12/20/19 10:00 21 116/48 Endotracheal Tube 40 12/20/19 09:30 80 21 116/49 (71) 92 12/20/19 09:00 14 118/49 Endotracheal Tube 40 12/20/19 09:00 80 14 118/49 (72) 92 12/20/19 08:30 76 18 110/44 (66) 94 12/20/19 08:09 80 12/20/19 08:00 Mechanical Ventilator 12/20/19 08:00 18 121/48 Endotracheal Tube 40 12/20/19 08:00 98.5 78 19 121/48 (72) 97 12/20/19 08:00 40 12/20/19 07:12 80 19 50 12/20/19 07:00 17 110/41 Mechanical Ventilator 50 12/20/19 07:00 68 17 110/41 (64) 98 12/20/19 06:30 69 18 112/43 (66) 94 12/20/19 06:30 69 18 12/20/19 06:00 19 93/63 Mechanical Ventilator 50 12/20/19 06:00 69 19 93/63 (73) 95 12/20/19 05:30 66 18 109/42 (64) 96 12/20/19 05:00 17 108/41 Mechanical Ventilator 50 12/20/19 05:00 67 17 108/41 (63) 97 12/20/19 04:30 68 19 112/43 (66) 95 12/20/19 04:00 Mechanical Ventilator 12/20/19 04:00 98.6 69 18 108/41 (63) 98 12/20/19 04:00 50 12/20/19 04:00 18 108/41 Mechanical Ventilator 50 12/20/19 03:30 71 18 108/42 (64) 97 12/20/19 03:24 74 18 50 12/20/19 03:16 73 12/20/19 03:00 19 125/46 Mechanical Ventilator 50 12/20/19 03:00 77 19 125/46 (72) 97 12/20/19 02:30 71 22 113/44 (67) 100 12/20/19 02:00 64 21 110/40 (63) 99 12/20/19 02:00 21 110/40 Mechanical Ventilator 60 12/20/19 01:30 64 21 104/42 (62) 99 12/20/19 01:00 20 104/40 Mechanical Ventilator 60 12/20/19 01:00 65 20 104/40 (61) 99 12/20/19 00:30 64 20 105/40 (61) 100 12/20/19 00:00 20 104/39 Mechanical Ventilator 60 12/20/19 00:00 97.6 64 20 104/39 (60) 100 12/20/19 00:00 Mechanical Ventilator 12/20/19 00:00 64 12/20/19 00:00 60 12/19/19 23:30 65 20 101/40 (60) 99 12/19/19 23:00 65 20 104/41 (62) 100 12/19/19 23:00 20 104/41 Mechanical Ventilator 60 12/19/19 22:34 71 23 60 12/19/19 22:32 60 12/19/19 22:30 69 19 109/46 (67) 92 12/19/19 22:15 67 19 101/40 (60) 94 12/19/19 22:00 68 18 103/41 (61) 95 720 22:00 18 103/41 Mechanical Ventilator 40 12/19/19 21:30 67 18 96/47 (63) 92 12/19/19 21:00 67 19 101/43 (62) 95 12/19/19 21:00 19 101/43 Mechanical Ventilator 40 20 20:56 19 101/42 Mechanical Ventilator 40 12/19/19 20:30 68 19 104/45 (64) 95 12/19/19 20:00 Mechanical Ventilator 12/19/19 20:00 19 98/43 Mechanical Ventilator 40 12/19/19 20:00 40 12/19/19 20:00 98.6 70 19 98/43 (61) 94 12/19/19 19:58 70 21 40 12/19/19 19:51 71 12/19/19 19:00 67 18 113/46 (68) 95 12/19/19 19:00 12 113/46 Mechanical Ventilator 40 12/19/19 18:00 12 102/40 Mechanical Ventilator 40 12/19/19 18:00 66 18 102/40 (60) 97 12/19/19 17:30 67 18 104/40 (61) 99 12/19/19 17:00 65 17 105/40 (61) 100 12/19/19 17:00 12 105/40 Mechanical Ventilator 40 12/19/19 16:30 66 17 106/42 (63) 100 12/19/19 16:00 Mechanical Ventilator 12/19/19 16:00 12 107/41 Mechanical Ventilator 40 12/19/19 16:00 66 12/19/19 16:00 98.5 67 17 107/41 (63) 100 12/19/19 16:00 40 12/19/19 15:30 66 17 101/41 (61) 100 12/19/19 15:15 68 19 40 12/19/19 15:00 12 105/42 Mechanical Ventilator 40 12/19/19 15:00 67 17 105/42 (63) 100 12/19/19 14:30 68 18 106/41 (62) 100 12/19/19 14:00 18 103/39 Mechanical Ventilator 40 12/19/19 14:00 66 18 103/39 (60) 100 12/19/19 13:30 69 18 100/40 (60) 98 12/19/19 13:00 72 17 105/44 (64) 99 12/19/19 13:00 12 105/44 Mechanical Ventilator 40 12/19/19 12:30 76 13 111/44 (66) 95 12/19/19 12:00 97.5 74 12 105/41 (62) 100 12/19/19 12:00 40 12/19/19 12:00 75 12/19/19 12:00 12 105/41 Mechanical Ventilator 40 12/19/19 12:00 Mechanical Ventilator 12/19/19 11:47 40 12/19/19 11:44 72 12 40 Intake and Output 12/20/19 12/21/19 19:00 07:00 Intake Total 1818.50 ml 1401.708 ml Output Total 510 ml 565 ml Balance 1308.50 ml 836.708 ml Intake Free Water 400 ml IV Total 818.50 ml 701.708 ml Tube Feeding 600 ml 600 ml Other 100 ml Output Urine Total 510 ml 565 ml Labs Test 12/18/19 20:21 12/18/19 21:58 12/18/19 23:38 12/19/19 03:00 Arterial Blood pH 7.046 (7.350-7.450) 7.422 (7.350-7.450) Arterial Blood Partial Pressure CO2 141.7 mmHg (35.0-45.0) 47.0 mmHg (35.0-45.0) Arterial Blood Partial Pressure O2 73.4 mmHg (75.0-100.0) 119.8 mmHg (75.0-100.0) Arterial Blood HCO3 38.0 mmol/L (22.0-26.0) 29.9 mmol/L (22.0-26.0) Arterial Blood Oxygen Saturation 87.0 % (95-100) 98.3 % (95-100) Arterial Blood Base Excess 3.5 (-2-2) 4.8 (-2-2) Raphael Test Positive Positive White Blood Count 7.5 K/UL (4.8-10.8) Red Blood Count 2.97 M/UL (4.20-5.40) Hemoglobin 9.6 G/DL (12.0-16.0) Hematocrit 30.8 % (37.0-47.0) Mean Corpuscular Volume 104 FL (80-99) Mean Corpuscular Hemoglobin 32.1 PG (27.0-31.0) Mean Corpuscular Hemoglobin Concent 31.1 G/DL (32.0-36.0) Red Cell Distribution Width 13.2 % (11.6-14.8) Platelet Count 155 K/UL (150-450) Mean Platelet Volume 6.2 FL (6.5-10.1) Neutrophils (%) (Auto) 72.0 % (45.0-75.0) Lymphocytes (%) (Auto) 15.4 % (20.0-45.0) Monocytes (%) (Auto) 9.2 % (1.0-10.0) Eosinophils (%) (Auto) 2.6 % (0.0-3.0) Basophils (%) (Auto) 0.9 % (0.0-2.0) Sodium Level 149 MMOL/L (136-145) Potassium Level 4.4 MMOL/L (3.5-5.1) Chloride Level 110 MMOL/L (98-107) Carbon Dioxide Level 31 MMOL/L (21-32) Anion Gap 8 mmol/L (5-15) Blood Urea Nitrogen 22 mg/dL (7-18) Creatinine 1.0 MG/DL (0.55-1.30) Estimat Glomerular Filtration Rate 53.3 mL/min (>60) Glucose Level 82 MG/DL (74-106) Calcium Level 8.3 MG/DL (8.5-10.1) Total Bilirubin 0.8 MG/DL (0.2-1.0) Aspartate Amino Transf (AST/SGOT) 19 U/L (15-37) Alanine Aminotransferase (ALT/SGPT) 38 U/L (12-78) Alkaline Phosphatase 36 U/L (46-116) Total Protein 5.8 G/DL (6.4-8.2) Albumin 3.0 G/DL (3.4-5.0) Globulin 2.8 g/dL Albumin/Globulin Ratio 1.1 (1.0-2.7) Test 12/19/19 05:24 12/19/19 08:32 12/19/19 23:16 12/20/19 04:20 Arterial Blood pH 7.567 (7.350-7.450) Arterial Blood Partial Pressure CO2 35.0 mmHg (35.0-45.0) Arterial Blood Partial Pressure O2 71.7 mmHg (75.0-100.0) Arterial Blood HCO3 31.1 mmol/L (22.0-26.0) Arterial Blood Oxygen Saturation 95.4 % (95-100) Arterial Blood Base Excess 8.6 (-2-2) Raphael Test Positive POC Whole Blood Glucose 158 MG/DL (74-106) White Blood Count 6.7 K/UL (4.8-10.8) Red Blood Count 2.95 M/UL (4.20-5.40) Hemoglobin 9.5 G/DL (12.0-16.0) Hematocrit 30.4 % (37.0-47.0) Mean Corpuscular Volume 103 FL (80-99) Mean Corpuscular Hemoglobin 32.2 PG (27.0-31.0) Mean Corpuscular Hemoglobin Concent 31.2 G/DL (32.0-36.0) Red Cell Distribution Width 13.4 % (11.6-14.8) Platelet Count 179 K/UL (150-450) Mean Platelet Volume 7.0 FL (6.5-10.1) Neutrophils (%) (Auto) % (45.0-75.0) Lymphocytes (%) (Auto) % (20.0-45.0) Monocytes (%) (Auto) % (1.0-10.0) Eosinophils (%) (Auto) % (0.0-3.0) Basophils (%) (Auto) % (0.0-2.0) Sodium Level 150 MMOL/L (136-145) Potassium Level 4.1 MMOL/L (3.5-5.1) Chloride Level 111 MMOL/L (98-107) Carbon Dioxide Level 31 MMOL/L (21-32) Anion Gap 8 mmol/L (5-15) Blood Urea Nitrogen 31 mg/dL (7-18) Creatinine 1.1 MG/DL (0.55-1.30) Estimat Glomerular Filtration Rate 47.8 mL/min (>60) Glucose Level 144 MG/DL (74-106) Calcium Level 8.2 MG/DL (8.5-10.1) Test 12/20/19 05:22 12/20/19 08:09 7/9/20 12:50 POC Whole Blood Glucose 141 MG/DL (74-106) Arterial Blood pH 7.408 (7.350-7.450) 7.356 (7.350-7.450) Arterial Blood Partial Pressure CO2 52.7 mmHg (35.0-45.0) 58.0 mmHg (35.0-45.0) Arterial Blood Partial Pressure O2 79.4 mmHg (75.0-100.0) 106.2 mmHg (75.0-100.0) Arterial Blood HCO3 32.5 mmol/L (22.0-26.0) 31.7 mmol/L (22.0-26.0) Arterial Blood Oxygen Saturation 94.6 % (95-100) 96.7 % (95-100) Arterial Blood Base Excess 6.7 (-2-2) 5.1 (-2-2) Raphael Test Positive Positive Height (Feet): 5 Height (Inches): 7.00 Weight (Pounds): 220 Objective Vitals: reviewed General: NAD HEENT: nc, at ++ogt Neck: supple ++intubated Chest: decreased breath sounds bilaterally Cardiovascular: RRR, no s3, s4 Abdomen: soft, nontender, nd Extremities: 1-2 + edema, scd's Neuro: nonverbal : restraints Frank Escobar MD Dec 21, 2019 11:41
--- NOTE | 2019-12-21 11:49 | Cardiac Electrophysiology PN ---
Assessment/Plan Assessment/Plan 1. Recurrent respiratory failure with BNP of more than 19,000. Echo showed normal ejection fraction. Off Lasix 2. Bradycardia requiring atropine due to respiratory failure as was on T piece at the time. No recurrence on the Vent 3. Respiratory failure, intubated on the vent on steroids and antibiotic. Being weaned again 4. History of Parkinson disease. 5. Hyperlipidemia. 6. Metabolic alkalosis. Better off Lasix 7. Bilateral UE edema. Will get Duplex DW RN Subjective Subjective On the vent off pressors. No more laney. Has bilateral UE edema Objective Last 24 Hour Vital Signs Date Time Temp Pulse Resp B/P (MAP) Pulse Ox O2 Delivery O2 Flow Rate FiO2 12/21/19 09:00 79 22 126/46 (72) 96 12/21/19 08:00 Mechanical Ventilator 12/21/19 08:00 40 12/21/19 08:00 99.2 74 17 119/41 (67) 96 12/21/19 07:05 77 16 40 12/21/19 07:00 75 18 120/42 (68) 95 12/21/19 06:10 81 18 12/21/19 06:00 81 18 128/47 (74) 98 12/21/19 05:00 75 17 117/43 (67) 96 12/21/19 04:00 76 12/21/19 04:00 Mechanical Ventilator 12/21/19 04:00 99.3 78 14 122/46 (71) 99 12/21/19 04:00 40 12/21/19 03:00 82 18 131/49 (76) 95 12/21/19 02:57 92 20 40 12/21/19 02:00 76 19 119/44 (69) 97 12/21/19 01:00 75 18 120/43 (68) 97 12/21/19 00:00 40 12/21/19 00:00 99.7 76 19 117/41 (66) 95 12/21/19 00:00 76 12/21/19 00:00 Mechanical Ventilator 12/20/19 23:05 84 19 40 12/20/19 23:00 76 19 114/41 (65) 93 12/20/19 22:00 80 20 119/43 (68) 96 12/20/19 21:00 78 18 118/45 (69) 95 7/9/20 20:37 19 120/43 Mechanical Ventilator 40 12/20/19 20:00 40 12/20/19 20:00 Mechanical Ventilator 12/20/19 20:00 99.0 81 19 122/45 (70) 94 12/20/19 19:30 88 21 40 12/20/19 19:21 81 12/20/19 19:00 79 16 121/46 (71) 96 12/20/19 18:30 84 20 126/47 (73) 97 12/20/19 18:00 82 17 123/47 (72) 97 12/20/19 17:30 75 15 118/44 (68) 98 12/20/19 17:00 80 17 114/41 (65) 99 12/20/19 16:30 76 15 115/43 (67) 99 12/20/19 16:09 75 12/20/19 16:00 99.2 76 16 109/41 (63) 97 12/20/19 16:00 Mechanical Ventilator 12/20/19 15:30 79 17 112/43 (66) 96 12/20/19 15:00 40 12/20/19 15:00 85 21 133/58 (83) 97 12/20/19 15:00 76 16 40 12/20/19 14:30 90 18 122/48 (72) 95 12/20/19 14:00 85 16 116/46 (69) 95 12/20/19 13:30 88 17 118/47 (70) 95 12/20/19 13:00 87 18 115/46 (69) 94 12/20/19 12:44 84 12/20/19 12:30 86 15 112/45 (67) 95 12/20/19 12:00 Mechanical Ventilator 12/20/19 12:00 40 12/20/19 12:00 98.4 91 16 129/61 (83) 93 Intake and Output 12/20/19 12/21/19 19:00 07:00 Intake Total 1818.50 ml 1401.708 ml Output Total 510 ml 565 ml Balance 1308.50 ml 836.708 ml Intake Free Water 400 ml IV Total 818.50 ml 701.708 ml Tube Feeding 600 ml 600 ml Other 100 ml Output Urine Total 510 ml 565 ml Laboratory Tests Test 12/20/19 12:50 Arterial Blood pH 7.356 (7.350-7.450) Arterial Blood Partial Pressure CO2 58.0 mmHg (35.0-45.0) *H Arterial Blood Partial Pressure O2 106.2 mmHg (75.0-100.0) H Arterial Blood HCO3 31.7 mmol/L (22.0-26.0) H Arterial Blood Oxygen Saturation 96.7 % (95-100) Arterial Blood Base Excess 5.1 (-2-2) H Raphael Test Positive Objective HEAD AND NECK: Orally intubated with no JVD. LUNGS: Coarse rhonchi. CARDIOVASCULAR: Shows regular S1 and S2 and tachycardic. ABDOMEN: Soft. EXTREMITIES: Bilateral Arm edema. Cameron Davies MD Dec 21, 2019 11:49
--- NOTE | 2019-12-21 11:52 | NUR ---
NURSE NOTES: Paged Dr. Myers for F/U with ABG result.
--- NOTE | 2019-12-21 12:08 | NUR ---
NURSE NOTES: Spoke with Dr. Myers and ordered extubation. And called RT.
--- NOTE | 2019-12-21 12:08 | Pulmonology Progress Note ---
Subjective ROS Limited/Unobtainable: Yes Interval Events: ABG adequate; will extubate Constitutional: Reports: no symptoms HEENT: Repors: no symptoms Respiratory: Reports: no symptoms Cardiovascular: Reports: no symptoms Gastrointestinal/Abdominal: Reports: no symptoms Genitourinary: Reports: no symptoms Allergies: Coded Allergies: LITHIUM (Verified Allergy, Unknown, 02/07/19) All Systems: reviewed and negative except above Objective Last 24 Hour Vital Signs Date Time Temp Pulse Resp B/P (MAP) Pulse Ox O2 Delivery O2 Flow Rate FiO2 12/21/19 11:15 75 23 40 12/21/19 09:53 97 12/21/19 09:48 40 40 12/21/19 09:00 79 22 126/46 (72) 96 12/21/19 08:00 Mechanical Ventilator 12/21/19 08:00 40 12/21/19 08:00 99.2 74 17 119/41 (67) 96 12/21/19 07:05 77 16 40 12/21/19 07:00 75 18 120/42 (68) 95 12/21/19 06:10 81 18 12/21/19 06:00 81 18 128/47 (74) 98 12/21/19 05:00 75 17 117/43 (67) 96 12/21/19 04:00 76 12/21/19 04:00 Mechanical Ventilator 12/21/19 04:00 99.3 78 14 122/46 (71) 99 12/21/19 04:00 40 12/21/19 03:00 82 18 131/49 (76) 95 12/21/19 02:57 92 20 40 12/21/19 02:00 76 19 119/44 (69) 97 12/21/19 01:00 75 18 120/43 (68) 97 12/21/19 00:00 40 12/21/19 00:00 99.7 76 19 117/41 (66) 95 12/21/19 00:00 76 12/21/19 00:00 Mechanical Ventilator 12/20/19 23:05 84 19 40 12/20/19 23:00 76 19 114/41 (65) 93 12/20/19 22:00 80 20 119/43 (68) 96 12/20/19 21:00 78 18 118/45 (69) 95 12/20/19 20:37 19 120/43 Mechanical Ventilator 40 12/20/19 20:00 40 12/20/19 20:00 Mechanical Ventilator 12/20/19 20:00 99.0 81 19 122/45 (70) 94 12/20/19 19:30 88 21 40 12/20/19 19:21 81 12/20/19 19:00 79 16 121/46 (71) 96 12/20/19 18:30 84 20 126/47 (73) 97 12/20/19 18:00 82 17 123/47 (72) 97 12/20/19 17:30 75 15 118/44 (68) 98 12/20/19 17:00 80 17 114/41 (65) 99 12/20/19 16:30 76 15 115/43 (67) 99 12/20/19 16:09 75 12/20/19 16:00 99.2 76 16 109/41 (63) 97 12/20/19 16:00 Mechanical Ventilator 12/20/19 15:30 79 17 112/43 (66) 96 12/20/19 15:00 40 12/20/19 15:00 85 21 133/58 (83) 97 12/20/19 15:00 76 16 40 12/20/19 14:30 90 18 122/48 (72) 95 12/20/19 14:00 85 16 116/46 (69) 95 12/20/19 13:30 88 17 118/47 (70) 95 12/20/19 13:00 87 18 115/46 (69) 94 12/20/19 12:44 84 12/20/19 12:30 86 15 112/45 (67) 95 Intake and Output 12/20/19 12/21/19 19:00 07:00 Intake Total 1818.50 ml 1401.708 ml Output Total 510 ml 565 ml Balance 1308.50 ml 836.708 ml Intake Free Water 400 ml IV Total 818.50 ml 701.708 ml Tube Feeding 600 ml 600 ml Other 100 ml Output Urine Total 510 ml 565 ml General Appearance: no acute distress Respiratory: chest wall non-tender, lungs clear Cardiovascular: normal peripheral pulses, normal rate Abdomen: normal bowel sounds Laboratory Tests 12/20/19 12:50: Arterial Blood pH 7.356, Arterial Blood Partial Pressure CO2 58.0*H, Arterial Blood Partial Pressure O2 106.2H, Arterial Blood HCO3 31.7H, Arterial Blood Oxygen Saturation 96.7, Arterial Blood Base Excess 5.1H, Raphael Test Positive 12/21/19 11:32: Arterial Blood pH 7.420, Arterial Blood Partial Pressure CO2 52.9H, Arterial Blood Partial Pressure O2 94.7, Arterial Blood HCO3 33.5H, Arterial Blood Oxygen Saturation 96.8, Arterial Blood Base Excess 7.9H, Raphael Test Positive Current Medications Medications (Trade) Dose Ordered Sig/Angie Route PRN Reason Start Time Stop Time Status Last Admin Dose Admin Acetaminophen (Tylenol) 650 mg Q6H PRN ORAL Mild Pain (Pain Scale 1-3) 12/12/19 12:30 01/11/20 12:29 Acetaminophen (Tylenol) 1,000 mg Q6H PRN ORAL MODERATE PAIN 12/12/19 12:30 01/11/20 12:29 Amantadine HCl (Symmetrel) 100 mg TWICE A DAY GT 12/15/19 18:00 01/11/20 08:59 12/21/19 08:41 Aspirin (ASA) 324 mg DAILY NG 12/21/19 09:00 02/04/20 08:59 12/21/19 08:41 Atorvastatin Calcium (Lipitor) 10 mg BEDTIME GT 12/15/19 21:00 03/11/20 20:59 12/20/19 20:36 Calcium Carbonate (Os-Octavio) 1,250 mg THREE TIMES A DAY GT 12/15/19 18:00 03/11/20 09:59 12/21/19 12:05 Clonidine HCl (Catapres Tab) 0.1 mg Q6H PRN GT For high BP over 160 systolic 12/15/19 16:30 03/11/20 12:30 Dextrose (Dextrose 50%) 25 ml Q30M PRN IV Hypoglycemia 12/13/19 07:15 03/12/20 07:14 Dextrose (Dextrose 50%) 50 ml Q30M PRN IV Hypoglycemia 12/13/19 07:15 03/12/20 07:14 Divalproex Sodium (Depakote Sprinkles) 250 mg EVERY 12 HOURS NG 12/13/19 21:00 01/12/20 20:59 12/21/19 08:41 Docusate Sodium (Colace) 100 mg TWICE A DAY NG 12/15/19 18:00 01/14/20 17:59 12/21/19 08:40 Fentanyl Citrate 250 ml @ 0 mls/hr Q24H IV 12/18/19 20:53 03/17/20 20:52 12/19/19 20:56 Haloperidol Lactate 5 mg/ Dextrose 56 ml @ 224 mls/hr Q6H PRN IVPB agitation 12/18/19 10:45 02/01/20 10:44 Insulin Aspart (NovoLOG) EVERY 6 HOURS SUBQ 12/13/19 12:00 03/12/20 11:59 12/21/19 12:06 Lactulose (Cephulac) 20 gm BID GT 12/19/19 18:00 01/18/20 17:59 12/21/19 08:40 Levothyroxine Sodium (Synthroid) 75 mcg DAILY IV 12/13/19 09:00 01/11/20 09:29 12/21/19 09:16 Methylprednisolone Sodium Succinate (Solu-MEDROL) 40 mg EVERY 6 HOURS IVP 12/19/19 12:00 03/18/20 11:59 12/21/19 12:05 Nitroglycerin (Ntg) 0.4 mg Q5MIN X 3 DOSES PRN SL CHEST PAIN 12/12/19 12:00 01/10/20 21:44 Olanzapine (ZyPREXA) 5 mg BID GT 12/15/19 18:00 01/26/20 08:59 12/21/19 08:41 Pantoprazole (Protonix) 40 mg EVERY 12 HOURS IVP 12/14/19 09:00 01/13/20 08:59 12/21/19 08:41 Phosphorus (Phospha 250 Neutral) 250 mg THREE TIMES A DAY GT 12/15/19 09:00 01/14/20 08:59 12/21/19 12:05 Piperacillin Sod/ Tazobactam Sod 3.375 gm/Sodium Chloride 110 ml @ 27.5 mls/hr EVERY 8 HOURS IVPB 12/19/19 14:00 12/24/19 13:59 12/21/19 05:29 Polyethylene Glycol (Miralax) 17 gm BEDTIME GT 12/19/19 21:00 01/18/20 20:59 12/20/19 20:37 Sodium Chloride 1,000 ml @ 50 mls/hr Q20H IV 12/12/19 12:30 01/11/20 12:29 12/20/19 20:02 Assessment/Plan Assessment/Plan IMPRESSION: 1. Respiratory failure. 2. Has healthcare-associated pneumonia; is negative for COVID-19. 3. Psych disorder. 4. Obesity. 5. Hypertension. DISCUSSION: Continue broad spectrum antibiotics. On propofol. I will manage respirator, currently on AC mode 50% FiO2 and PEEP of 5. Has negative COVID-19 swab. I will follow carefully. Continue weaning; failed self-extubation Robin extubate today Will continue Haldol to assist in weaning Emerita Fan Omar Syed MD Dec 21, 2019 12:08
--- NOTE | 2019-12-21 13:05 | NUR ---
NURSE NOTES: Extubated ETT and put her on cool aerosol 10L. Will continue plan of care.
--- NOTE | 2019-12-21 13:08 | NUR ---
RESPIRATORY NOTE: Pt. was extubated @ 1305 per MD order. Placed on cool aerosol with 40% O2. SpO2 100%, HR 77. B/S are clear and equal. No S/S of distress. Vitals remain within normal limits. Will continue to monitor.
[2019-12-21] MEDS: Haloperidol Lactate 5 MG in D5W 55 ML IVPB PRN (13:22)
--- NOTE | 2019-12-21 13:32 | NUR ---
NURSE NOTES: Oral suction given and oral care provided.
--- NOTE | 2019-12-21 13:39 | Nephrology Progress Note ---
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 Respiratory distress most likely secondary to pulmonary edema and or COPD exacerbation. Hyponatremia. Obese. Hypothyroidism. Elevated d-dimer. Elevated liver enzymes Plan December 20: Patient on weaning trial. No labs done today. Discussed with RN. Continue per consultants. December 19: Patient remains intubated. Renal parameters stable. Discussed with RN. Continue per consultants. December 18: Patient self extubated yesterday however was reintubated. Remains stable from renal standpoint of view. Discussed with RN. Discussed with Dr. Myers. December 17: Remains intubated. Remains full code. Failed weaning. Stable from renal standpoint of view. Continue per consultants. Discussed with DARREL Montenegro. December 16: Remains intubated. Full code. Weaning in process. Stable from renal standpoint of view. December 15: Remains vented. Electrolytes improved. Continue per consultants. December 14: Patient remains in ICU intubated on ventilator. Potassium low. Phosphorus low. Supplements given. Renal parameters are stable. Continue per consultants. December 13: Patient remains in ICU intubated on ventilator. Discussed with RN. Labs reviewed. Creatinine 1.3. Potassium supplements given. Mag sulfate IV 2 g given. Continue per consultants. December 12: Patient in ICU. Intubated on ventilator. Discussed with RN. Labs reviewed. Potassium supplement given. Continue per consultants. Arterial blood gas indicative of CO2 retention. Patient on the way to ICU for intubation. Continue per pulmonary management. Pulmonary support, Check 2D echocardiogram. Previous 2D echo had a 50% ejection fraction. Keep blood sugar and blood pressure in check. Thyroid panel. Monitor electrolytes and renal parameters. Afterload reduction. Diuretics Monitor serum calcium, supplements via NG tube. Per orders. Subjective ROS Limited/Unobtainable: Yes Objective Objective Last 24 Hour Vital Signs Date Time Temp Pulse Resp B/P (MAP) Pulse Ox O2 Delivery O2 Flow Rate FiO2 12/21/19 13:05 Venturi Mask 40 12/21/19 11:15 75 23 40 12/21/19 09:53 97 12/21/19 09:48 40 40 12/21/19 09:00 79 22 126/46 (72) 96 12/21/19 08:00 Mechanical Ventilator 12/21/19 08:00 40 12/21/19 08:00 99.2 74 17 119/41 (67) 96 12/21/19 07:05 77 16 40 12/21/19 07:00 75 18 120/42 (68) 95 12/21/19 06:10 81 18 12/21/19 06:00 81 18 128/47 (74) 98 12/21/19 05:00 75 17 117/43 (67) 96 12/21/19 04:00 76 12/21/19 04:00 Mechanical Ventilator 12/21/19 04:00 99.3 78 14 122/46 (71) 99 12/21/19 04:00 40 12/21/19 03:00 82 18 131/49 (76) 95 12/21/19 02:57 92 20 40 12/21/19 02:00 76 19 119/44 (69) 97 12/21/19 01:00 75 18 120/43 (68) 97 12/21/19 00:00 40 12/21/19 00:00 99.7 76 19 117/41 (66) 95 12/21/19 00:00 76 12/21/19 00:00 Mechanical Ventilator 12/20/19 23:05 84 19 40 12/20/19 23:00 76 19 114/41 (65) 93 12/20/19 22:00 80 20 119/43 (68) 96 12/20/19 21:00 78 18 118/45 (69) 95 12/20/19 20:37 19 120/43 Mechanical Ventilator 40 12/20/19 20:00 40 12/20/19 20:00 Mechanical Ventilator 12/20/19 20:00 99.0 81 19 122/45 (70) 94 12/20/19 19:30 88 21 40 12/20/19 19:21 81 12/20/19 19:00 79 16 121/46 (71) 96 12/20/19 18:30 84 20 126/47 (73) 97 12/20/19 18:00 82 17 123/47 (72) 97 12/20/19 17:30 75 15 118/44 (68) 98 12/20/19 17:00 80 17 114/41 (65) 99 12/20/19 16:30 76 15 115/43 (67) 99 12/20/19 16:09 75 12/20/19 16:00 99.2 76 16 109/41 (63) 97 12/20/19 16:00 Mechanical Ventilator 12/20/19 15:30 79 17 112/43 (66) 96 12/20/19 15:00 40 12/20/19 15:00 85 21 133/58 (83) 97 12/20/19 15:00 76 16 40 12/20/19 14:30 90 18 122/48 (72) 95 12/20/19 14:00 85 16 116/46 (69) 95 Intake and Output 12/20/19 12/21/19 19:00 07:00 Intake Total 1818.50 ml 1401.708 ml Output Total 510 ml 565 ml Balance 1308.50 ml 836.708 ml Intake Free Water 400 ml IV Total 818.50 ml 701.708 ml Tube Feeding 600 ml 600 ml Other 100 ml Output Urine Total 510 ml 565 ml No can panel done today laboratory Tests 12/21/19 11:32: Arterial Blood pH 7.420, Arterial Blood Partial Pressure CO2 52.9H, Arterial Blood Partial Pressure O2 94.7, Arterial Blood HCO3 33.5H, Arterial Blood Oxygen Saturation 96.8, Arterial Blood Base Excess 7.9H, Raphael Test Positive Height (Feet): 5 Height (Inches): 7.00 Weight (Pounds): 220 General Appearance: no apparent distress EENT: other - Intubated on ventilator Cardiovascular: tachycardia Respiratory/Chest: decreased breath sounds Abdomen: distended Bryan Ochoa MD Dec 21, 2019 13:39
--- NOTE | 2019-12-21 14:44 | NUR ---
NURSE NOTES: Patient is still on O2 cool aerosol 10L/min. No distress noted. Provided oral care.
--- NOTE | 2019-12-21 15:02 | NUR ---
NURSE NOTES: Patient keeps taking off mask and changed to NC 4L/min. O2 sat 92-95% on the monitor.
--- NOTE | 2019-12-21 16:20 | NUR ---
NURSE NOTES: Repositioned patient. kept dry, clean and comfortable.
--- NOTE | 2019-12-21 17:32 | NUR ---
NURSE NOTES: Bed bath given. Kept dry, clean and comfortable.
--- NOTE | 2019-12-21 18:25 | NUR ---
NURSE NOTES: Patient asleep and desating to 80s. Put her on non-rebreather mask 10L/min. O2 sat 99% on the monitor.
--- NOTE | 2019-12-21 19:18 | NUR ---
HAND-OFF: Report given to DARREL Chau. Endorsed plan of care.
--- NOTE | 2019-12-21 19:19 | NUR ---
NURSE NOTES: Received patient from DARREL LYNN. Will continue plan of care.
--- NOTE | 2019-12-21 20:00 | NUR ---
NURSE NOTES: Patient is awake and alert x2. Was extubated earlier today and now on nasal cannula at 4L. O2sat:96%. BP:125/59, HR:90, RESP:25, TEMP:98.4 orally. Patient OGT came out when extubated. No diet order currently, will follow up. 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 Bed low and locked, alarm is on.
[2019-12-21] MEDS: fentaNYL 2500mcg/NS 250ml 250 ML IV SCH (20:17)
[2019-12-21] MEDS: Miralax 17gm pkt GT SCH (20:18)
--- NOTE | 2019-12-21 22:00 | NUR ---
NURSE NOTES: Patient is awake and alert. She asked for water, ice chips given instead to prevent aspiration. Patient pulled up, turned and repositioned.
[2019-12-22] VITALS (33 sets, daily range): BP systolic 98–161; BP diastolic 50–96
--- NOTE | 2019-12-22 | NUR ---
NURSE NOTES: Vital signs stable. Request for more ice chips and was given. All needs are met. Blood sugar 135, no coverage needed.
--- NOTE | 2019-12-22 02:00 | NUR ---
NURSE NOTES: Bed bath given, linens changed, turned and repositioned. Safety measures in place.
--- NOTE | 2019-12-22 04:00 | NUR ---
NURSE NOTES: Patient having SOB, placed on non-rebreather w/ cool aerosol @ 40%
[2019-12-22] MEDS: Solu-MEDROL 40mg Inj IVP SCH ×4 (05:16→23:30)
[2019-12-22] MEDS: Piperacillin/Tazobactam 3.375 GM in NS 110 ML IVPB SCH ×3 (05:16→21:49)
[2019-12-22] MEDS: NovoLOG Insulin Flexpen SUBQ SCH ×4 (05:23→23:31)
[2019-12-22 05:30] LABS: HEMATOCRIT 31.7 % (37.0-47.0); HEMOGLOBIN 9.7 G/DL (12.0-16.0); MEAN CORPUSCULAR VOLUME 107 FL (80-99); PLATELET COUNT 202 K/UL (150-450); RED BLOOD COUNT 2.97 M/UL (4.20-5.40); RED CELL DISTRIBUTION WIDTH 13.4 % (11.6-14.8); WHITE BLOOD COUNT 10.8 K/UL (4.8-10.8)
[2019-12-22 05:55] LABS: ALANINE AMINOTRANSFERASE 24 U/L (12-78); ALBUMIN 3.4 G/DL (3.4-5.0); ALKALINE PHOSPHATASE 36 U/L (46-116); ANION GAP 7 mmol/L (5-15); ASPARTATE AMINO TRANSFERASE 5 U/L (15-37); BILIRUBIN,TOTAL 0.5 MG/DL (0.2-1.0); BLOOD UREA NITROGEN 31 mg/dL (7-18); CALCIUM 8.6 MG/DL (8.5-10.1); CARBON DIOXIDE 34 MMOL/L (21-32); CHLORIDE 113 MMOL/L (98-107); POTASSIUM 4.4 MMOL/L (3.5-5.1); SODIUM 153 MMOL/L (136-145)
[2019-12-22 05:56] LABS: PHOSPHORUS 3.3 MG/DL (2.5-4.9)
--- NOTE | 2019-12-22 06:00 | NUR ---
NURSE NOTES: Patient continues to pull down her mask and she desats. STEAM GIGGER restraints on, ROM and skin assessed. accucheck 136, no coverage needed.
--- NOTE | 2019-12-22 06:52 | General Progress Note ---
Assessment/Plan Status: progressing Assessment/Plan: Assessment - Resp failure - r/o COVID -- x 2 negative - COPD - HTN - Anemia - Abnormal LFT Recommendations - extubated now -NGT is out - Elevate HOB - abx - follow labs - f/u hepatitis serologies>>> neg - mirakax and lactulose -repeat labs -pending swallow eval Subjective ROS Limited/Unobtainable: No Allergies: Coded Allergies: LITHIUM (Verified Allergy, Unknown, 02/07/19) Objective Last 24 Hour Vital Signs Date Time Temp Pulse Resp B/P (MAP) Pulse Ox O2 Delivery O2 Flow Rate FiO2 12/22/19 06:00 93 28 145/73 (97) 94 12/22/19 05:30 92 26 143/63 (89) 96 12/22/19 05:00 96 27 153/68 (96) 96 12/22/19 04:30 95 26 143/70 (94) 98 12/22/19 04:00 40 12/22/19 04:00 Mechanical Ventilator 12/22/19 04:00 103 27 129/55 (79) 93 12/22/19 03:49 110 12/22/19 03:30 87 23 125/54 (77) 96 12/22/19 03:00 85 31 126/53 (77) 94 12/22/19 02:30 99 25 98/80 (86) 94 12/22/19 02:00 88 29 126/58 (80) 100 12/22/19 01:30 87 26 132/59 (83) 97 12/22/19 01:00 86 31 126/64 (84) 92 12/22/19 00:30 91 26 132/68 (89) 98 12/22/19 00:00 Mechanical Ventilator 12/22/19 00:00 4.0 12/22/19 00:00 99.3 92 22 130/58 (82) 99 12/21/19 23:41 88 12/21/19 23:30 98 23 123/60 (81) 97 12/21/19 23:00 92 29 129/59 (82) 87 12/21/19 22:30 101 31 141/65 (90) 99 12/21/19 22:00 89 22 127/61 (83) 98 12/21/19 21:30 87 22 121/55 (77) 94 12/21/19 21:00 94 24 134/61 (85) 95 12/21/19 20:00 4.0 12/21/19 20:00 Mechanical Ventilator 12/21/19 20:00 98.4 91 21 125/59 (81) 95 12/21/19 19:30 101 25 135/65 (88) 97 12/21/19 19:15 88 12/21/19 19:08 97 Nasal Cannula 4.0 36 12/21/19 19:00 95 22 119/72 (88) 98 12/21/19 18:00 103 19 119/59 (79) 88 12/21/19 17:00 95 24 127/57 (80) 95 12/21/19 16:00 98.4 91 29 121/61 (81) 96 12/21/19 16:00 93 12/21/19 16:00 Mechanical Ventilator 12/21/19 15:00 93 28 129/57 (81) 99 12/21/19 14:00 92 22 125/51 (75) 100 12/21/19 13:05 10.0 12/21/19 13:05 Venturi Mask 40 12/21/19 13:00 92 23 140/62 (88) 100 12/21/19 12:00 Mechanical Ventilator 12/21/19 12:00 99.1 75 23 125/45 (71) 97 12/21/19 12:00 40 12/21/19 12:00 75 12/21/19 11:15 75 23 40 12/21/19 11:00 40 12/21/19 11:00 77 23 127/47 (73) 98 12/21/19 10:00 77 23 125/47 (73) 97 12/21/19 10:00 40 12/21/19 09:53 97 12/21/19 09:48 40 40 12/21/19 09:00 79 22 126/46 (72) 96 12/21/19 08:00 Mechanical Ventilator 12/21/19 08:00 75 12/21/19 08:00 40 12/21/19 08:00 99.2 74 17 119/41 (67) 96 12/21/19 07:05 77 16 40 12/21/19 07:00 75 18 120/42 (68) 95 Intake and Output 12/21/19 12/22/19 19:00 07:00 Intake Total 1124.792 ml 680.24 ml Output Total 685 ml 715 ml Balance 439.792 ml -34.76 ml IV Total 774.792 ml 680.24 ml Tube Feeding 350 ml 0 ml Output Urine Total 685 ml 715 ml Laboratory Tests 12/21/19 11:32: Arterial Blood pH 7.420, Arterial Blood Partial Pressure CO2 52.9H, Arterial Blood Partial Pressure O2 94.7, Arterial Blood HCO3 33.5H, Arterial Blood Oxygen Saturation 96.8, Arterial Blood Base Excess 7.9H, Raphael Test Positive 12/21/19 11:46: POC Whole Blood Glucose [Pending] 12/21/19 17:06: POC Whole Blood Glucose 133H 12/21/19 23:27: POC Whole Blood Glucose [Pending] 12/22/19 04:45: White Blood Count 10.8, Red Blood Count 2.97L, Hemoglobin 9.7L, Hematocrit 31.7L , Mean Corpuscular Volume 107H, Mean Corpuscular Hemoglobin 32.5H, Mean Corpuscular Hemoglobin Concent 30.5L, Red Cell Distribution Width 13.4, Platelet Count 202, Mean Platelet Volume 7.0, Neutrophils (%) (Auto) , Lymphocytes (%) (Auto) , Monocytes (%) (Auto) , Eosinophils (%) (Auto) , Basophils (%) (Auto) , Sodium Level 153H, Potassium Level 4.4, Chloride Level 113H, Carbon Dioxide Level 34H, Anion Gap 7, Blood Urea Nitrogen 31H, Creatinine 1.0, Estimat Glomerular Filtration Rate 53.3, Glucose Level 151H, Calcium Level 8.6, Phosphorus Level 3.3, Magnesium Level 1.7L, Total Bilirubin 0.5, Aspartate Amino Transf (AST/SGOT) 5L, Alanine Aminotransferase (ALT/SGPT) 24, Alkaline Phosphatase 36L, Total Protein 6.9, Albumin 3.4, Globulin 3.5, Albumin/Globulin Ratio 1.0 Height (Feet): 5 Height (Inches): 7.00 Weight (Pounds): 221 General Appearance: mild distress Neck: normal alignment Cardiovascular: normal rate Respiratory/Chest: decreased breath sounds Abdomen: normal bowel sounds, non tender, soft Extremities: non-tender Kirk Vidal MD Dec 22, 2019 06:52
--- NOTE | 2019-12-22 07:17 | NUR ---
NURSE NOTES: Received report from DARREL Chau. Patient asleep and responsive to verbal, confused. On Non-rebreather mask w/cool aerosol, FiO2 40%. O2 sat 89-92% on the monitor. Ace intact and draining with yellow color urine. Left forearm 22G IV intact and running with NS @ 50ml/hr. Bilateral soft wrist bands restraints on. Both hands are warm to touch. Kept dry, clean, comfortable and HOB>30. Will continue plan of care.
--- NOTE | 2019-12-22 07:21 | NUR ---
HAND-OFF: Report given to DARREL LYNN.
[2019-12-22] MEDS: Haloperidol Lactate 5 MG in D5W 55 ML IVPB PRN (07:41)
--- NOTE | 2019-12-22 07:41 | NUR ---
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 CURRENT TF:Vital 1.2 @50 -> s/p extubation, OGT removed. PO DIET RECOMMENDATIONS: LOW NA/ CCHO MED (texture per AEROSPACE TECHNICIAN) ADDITIONAL RECOMMENDATIONS: * Per SNF: HT=68" DM=618cct (12/04/19) * Monitor lytes, replete as needed (low mag) * Rec added D5 IVF while pt is NPO to prevent hypoglycemia * Monitor Na -> trending up, pt on NS IVF, rec to adjust IVF Addendum: 12/22/19 at [address] * Rec to monitor BM closely in EMR, no recent record of BM
--- NOTE | 2019-12-22 08:14 | NUR ---
RESPIRATORY NOTE:Pt received on cool aerosol 10L 40%. @0836 pt desat to 90% SpO2. Increased the FIO2 to 60% 10L. SpO2 increased to 95%. HR 100 at this time. DARREL Villalba aware.
[2019-12-22] MEDS: Depakote 125mg Sprinkles NG SCH (08:32)
[2019-12-22] MEDS: Phospha 250 Neutral tab GT SCH (08:32)
[2019-12-22] MEDS: Lactulose 20gm/30ml UDC GT SCH (08:32)
[2019-12-22] MEDS: Amantadine 100mg cap GT SCH (08:32)
[2019-12-22] MEDS: Pantoprazole Inj IVP SCH ×2 (08:32→20:49)
[2019-12-22] MEDS: Os-Cal (Oyster Shell) 500mg tab GT SCH (08:32)
[2019-12-22] MEDS: Docusate 100mg/10ml Liq NG SCH (08:32)
[2019-12-22] MEDS: Aspirin Baby 81mg NG SCH (08:33)
--- NOTE | 2019-12-22 08:48 | NUR ---
NURSE NOTES: Seen by Dr. Ochoa and assessed patient.
--- NOTE | 2019-12-22 10:12 | NUR ---
NURSE NOTES: Seen by Dr. Myers and assessed patient. Ordered seroquel. Will continue plan of care.
--- NOTE | 2019-12-22 10:12 | Pulmonology Progress Note ---
Subjective ROS Limited/Unobtainable: No Interval Events: Extubated yesterday Constitutional: Reports: no symptoms HEENT: Repors: no symptoms Respiratory: Reports: no symptoms Cardiovascular: Reports: no symptoms Gastrointestinal/Abdominal: Reports: no symptoms Genitourinary: Reports: no symptoms Allergies: Coded Allergies: LITHIUM (Verified Allergy, Unknown, 02/07/19) All Systems: reviewed and negative except above Objective Last 24 Hour Vital Signs Date Time Temp Pulse Resp B/P (MAP) Pulse Ox O2 Delivery O2 Flow Rate FiO2 12/22/19 09:00 95 44 136/67 (90) 94 12/22/19 09:00 60 12/22/19 08:00 40 12/22/19 08:00 98.3 104 25 161/70 (100) 93 12/22/19 08:00 Non-Rebreather 12/22/19 07:30 96 Cool Aerosol 10.0 40 12/22/19 07:00 87 40 136/58 (84) 92 12/22/19 06:30 103 21 139/91 (107) 84 12/22/19 06:00 93 28 145/73 (97) 94 12/22/19 05:30 92 26 143/63 (89) 96 12/22/19 05:00 96 27 153/68 (96) 96 12/22/19 04:30 95 26 143/70 (94) 98 12/22/19 04:00 40 12/22/19 04:00 Mechanical Ventilator 12/22/19 04:00 103 27 129/55 (79) 93 12/22/19 03:49 110 12/22/19 03:30 87 23 125/54 (77) 96 12/22/19 03:00 85 31 126/53 (77) 94 12/22/19 02:30 99 25 98/80 (86) 94 12/22/19 02:00 88 29 126/58 (80) 100 12/22/19 01:30 87 26 132/59 (83) 97 12/22/19 01:00 86 31 126/64 (84) 92 12/22/19 00:30 91 26 132/68 (89) 98 12/22/19 00:00 Mechanical Ventilator 12/22/19 00:00 4.0 12/22/19 00:00 99.3 92 22 130/58 (82) 99 12/21/19 23:41 88 12/21/19 23:30 98 23 123/60 (81) 97 12/21/19 23:00 92 29 129/59 (82) 87 12/21/19 22:30 101 31 141/65 (90) 99 12/21/19 22:00 89 22 127/61 (83) 98 12/21/19 21:30 87 22 121/55 (77) 94 12/21/19 21:00 94 24 134/61 (85) 95 12/21/19 20:00 4.0 12/21/19 20:00 Mechanical Ventilator 12/21/19 20:00 98.4 91 21 125/59 (81) 95 12/21/19 19:30 101 25 135/65 (88) 97 12/21/19 19:15 88 12/21/19 19:08 97 Nasal Cannula 4.0 36 12/21/19 19:00 95 22 119/72 (88) 98 12/21/19 18:00 103 19 119/59 (79) 88 12/21/19 17:00 95 24 127/57 (80) 95 12/21/19 16:00 98.4 91 29 121/61 (81) 96 12/21/19 16:00 93 12/21/19 16:00 Mechanical Ventilator 12/21/19 15:00 93 28 129/57 (81) 99 12/21/19 14:00 92 22 125/51 (75) 100 12/21/19 13:05 10.0 12/21/19 13:05 Venturi Mask 40 12/21/19 13:00 92 23 140/62 (88) 100 12/21/19 12:00 Mechanical Ventilator 12/21/19 12:00 99.1 75 23 125/45 (71) 97 12/21/19 12:00 40 12/21/19 12:00 75 12/21/19 11:15 75 23 40 12/21/19 11:00 40 12/21/19 11:00 77 23 127/47 (73) 98 Intake and Output 12/21/19 12/22/19 19:00 07:00 Intake Total 1124.792 ml 757.74 ml Output Total 685 ml 755 ml Balance 439.792 ml 2.74 ml IV Total 774.792 ml 757.74 ml Tube Feeding 350 ml 0 ml Output Urine Total 685 ml 755 ml General Appearance: no acute distress Respiratory: chest wall non-tender, lungs clear Cardiovascular: normal peripheral pulses, normal rate Abdomen: normal bowel sounds Laboratory Tests 12/21/19 11:32: Arterial Blood pH 7.420, Arterial Blood Partial Pressure CO2 52.9H, Arterial Blood Partial Pressure O2 94.7, Arterial Blood HCO3 33.5H, Arterial Blood Oxygen Saturation 96.8, Arterial Blood Base Excess 7.9H, Raphael Test Positive 12/21/19 11:46: POC Whole Blood Glucose [Pending] 12/21/19 17:06: POC Whole Blood Glucose 133H 12/21/19 23:27: POC Whole Blood Glucose [Pending] 12/22/19 04:45: White Blood Count 10.8, Red Blood Count 2.97L, Hemoglobin 9.7L, Hematocrit 31.7L , Mean Corpuscular Volume 107H, Mean Corpuscular Hemoglobin 32.5H, Mean Corpuscular Hemoglobin Concent 30.5L, Red Cell Distribution Width 13.4, Platelet Count 202, Mean Platelet Volume 7.0, Neutrophils (%) (Auto) , Lymphocytes (%) (Auto) , Monocytes (%) (Auto) , Eosinophils (%) (Auto) , Basophils (%) (Auto) , Sodium Level 153H, Potassium Level 4.4, Chloride Level 113H, Carbon Dioxide Level 34H, Anion Gap 7, Blood Urea Nitrogen 31H, Creatinine 1.0, Estimat Glomerular Filtration Rate 53.3, Glucose Level 151H, Calcium Level 8.6, Phosphorus Level 3.3, Magnesium Level 1.7L, Total Bilirubin 0.5, Aspartate Amino Transf (AST/SGOT) 5L, Alanine Aminotransferase (ALT/SGPT) 24, Alkaline Phosphatase 36L, Total Protein 6.9, Albumin 3.4, Globulin 3.5, Albumin/Globulin Ratio 1.0 Current Medications Medications (Trade) Dose Ordered Sig/Angie Route PRN Reason Start Time Stop Time Status Last Admin Dose Admin Acetaminophen (Tylenol) 650 mg Q6H PRN ORAL Mild Pain (Pain Scale 1-3) 12/12/19 12:30 01/11/20 12:29 Acetaminophen (Tylenol) 1,000 mg Q6H PRN ORAL MODERATE PAIN 12/12/19 12:30 01/11/20 12:29 Amantadine HCl (Symmetrel) 100 mg TWICE A DAY GT 12/15/19 18:00 01/11/20 08:59 12/22/19 08:32 Aspirin (ASA) 324 mg DAILY NG 12/21/19 09:00 02/04/20 08:59 12/22/19 08:33 Atorvastatin Calcium (Lipitor) 10 mg BEDTIME GT 12/15/19 21:00 03/11/20 20:59 12/20/19 20:36 Calcium Carbonate (Os-Octavio) 500 mg THREE TIMES A DAY GT 12/21/19 18:00 03/20/20 17:59 12/22/19 08:32 Clonidine HCl (Catapres Tab) 0.1 mg Q6H PRN GT For high BP over 160 systolic 12/15/19 16:30 03/11/20 12:30 Dextrose 1,000 ml @ 50 mls/hr Q20H IV 12/22/19 09:00 01/21/20 08:59 12/22/19 08:33 Dextrose (Dextrose 50%) 25 ml Q30M PRN IV Hypoglycemia 12/13/19 07:15 03/12/20 07:14 Dextrose (Dextrose 50%) 50 ml Q30M PRN IV Hypoglycemia 12/13/19 07:15 03/12/20 07:14 Divalproex Sodium (Depakote Sprinkles) 250 mg EVERY 12 HOURS NG 12/13/19 21:00 01/12/20 20:59 12/22/19 08:32 Docusate Sodium (Colace) 100 mg TWICE A DAY NG 12/15/19 18:00 01/14/20 17:59 12/22/19 08:32 Fentanyl Citrate 250 ml @ 0 mls/hr Q24H IV 12/18/19 20:53 03/17/20 20:52 12/19/19 20:56 Haloperidol Lactate 5 mg/ Dextrose 56 ml @ 224 mls/hr Q6H PRN IVPB agitation 12/18/19 10:45 02/01/20 10:44 12/22/19 07:41 Insulin Aspart (NovoLOG) EVERY 6 HOURS SUBQ 12/13/19 12:00 03/12/20 11:59 12/21/19 12:06 Lactulose (Cephulac) 20 gm BID GT 12/19/19 18:00 01/18/20 17:59 12/22/19 08:32 Levothyroxine Sodium (Synthroid) 75 mcg DAILY IV 12/13/19 09:00 01/11/20 09:29 12/22/19 08:48 Magnesium Sulfate 100 ml @ 100 mls/hr Q1H IVPB 12/22/19 09:00 12/22/19 10:59 12/22/19 09:51 Methylprednisolone Sodium Succinate (Solu-MEDROL) 40 mg EVERY 6 HOURS IVP 12/19/19 12:00 03/18/20 11:59 12/22/19 05:16 Nitroglycerin (Ntg) 0.4 mg Q5MIN X 3 DOSES PRN SL CHEST PAIN 12/12/19 12:00 01/10/20 21:44 Olanzapine (ZyPREXA) 5 mg BID GT 12/15/19 18:00 01/26/20 08:59 12/22/19 08:32 Pantoprazole (Protonix) 40 mg EVERY 12 HOURS IVP 12/14/19 09:00 01/13/20 08:59 12/22/19 08:32 Phosphorus (Phospha 250 Neutral) 250 mg THREE TIMES A DAY GT 12/15/19 09:00 01/14/20 08:59 12/22/19 08:32 Piperacillin Sod/ Tazobactam Sod 3.375 gm/Sodium Chloride 110 ml @ 27.5 mls/hr EVERY 8 HOURS IVPB 12/19/19 14:00 12/24/19 13:59 12/22/19 05:16 Polyethylene Glycol (Miralax) 17 gm BEDTIME GT 12/19/19 21:00 01/18/20 20:59 12/20/19 20:37 Sodium Chloride 1,000 ml @ 50 mls/hr Q20H IV 12/12/19 12:30 01/11/20 12:29 12/21/19 17:04 Assessment/Plan Assessment/Plan IMPRESSION: 1. Respiratory failure. 2. Has healthcare-associated pneumonia; is negative for COVID-19. 3. Psych disorder. 4. Obesity. 5. Hypertension. 6. Hypernatremia DISCUSSION: Continue broad spectrum antibiotics. Extubated yesterday. On 60% FiO2 Has negative COVID-19 swab. Switch to Seroquel Now on D5W Emerita Fna Omar Syed MD Dec 22, 2019 10:12
--- NOTE | 2019-12-22 12:02 | NUR ---
NURSE NOTES: Patient is calm at this time. Repositioned patient. Patient is still on non-rebreather mask with cool aerosol, FiO2 60%.
--- NOTE | 2019-12-22 12:17 | General Progress Note ---
Assessment/Plan Problem List: (1) Respiratory distress ICD Codes: R06.03 - Acute respiratory distress SNOMED: 189238247 (2) Dyspnea ICD Codes: R06.00 - Dyspnea, unspecified SNOMED: 592627219 (3) Diabetes 1.5, managed as type 2 ICD Codes: E13.9 - Other specified diabetes mellitus without complications SNOMED: 582124476 (4) Schizophrenia ICD Codes: F20.9 - Schizophrenia, unspecified SNOMED: 74682069 Status: progressing, unchanged Assessment/Plan: o2 pulm tx abx cbc bmp am Subjective Constitutional: Reports: weakness Allergies: Coded Allergies: LITHIUM (Verified Allergy, Unknown, 02/07/19) All Systems: reviewed and negative except above Subjective o2 mask sleepy in icu Objective Last 24 Hour Vital Signs Date Time Temp Pulse Resp B/P (MAP) Pulse Ox O2 Delivery O2 Flow Rate FiO2 12/22/19 12:03 85 12/22/19 10:00 89 26 118/96 (103) 90 12/22/19 09:30 89 25 103/57 (72) 92 12/22/19 09:00 95 44 136/67 (90) 94 12/22/19 09:00 60 12/22/19 08:00 97 12/22/19 08:00 40 12/22/19 08:00 98.3 104 25 161/70 (100) 93 12/22/19 08:00 Non-Rebreather 12/22/19 07:30 96 Cool Aerosol 10.0 40 12/22/19 07:00 87 40 136/58 (84) 92 12/22/19 06:30 103 21 139/91 (107) 84 12/22/19 06:00 93 28 145/73 (97) 94 12/22/19 05:30 92 26 143/63 (89) 96 12/22/19 05:00 96 27 153/68 (96) 96 12/22/19 04:30 95 26 143/70 (94) 98 12/22/19 04:00 40 12/22/19 04:00 Mechanical Ventilator 12/22/19 04:00 103 27 129/55 (79) 93 12/22/19 03:49 110 12/22/19 03:30 87 23 125/54 (77) 96 12/22/19 03:00 85 31 126/53 (77) 94 12/22/19 02:30 99 25 98/80 (86) 94 12/22/19 02:00 88 29 126/58 (80) 100 12/22/19 01:30 87 26 132/59 (83) 97 12/22/19 01:00 86 31 126/64 (84) 92 12/22/19 00:30 91 26 132/68 (89) 98 12/22/19 00:00 Mechanical Ventilator 12/22/19 00:00 4.0 12/22/19 00:00 99.3 92 22 130/58 (82) 99 12/21/19 23:41 88 12/21/19 23:30 98 23 123/60 (81) 97 12/21/19 23:00 92 29 129/59 (82) 87 12/21/19 22:30 101 31 141/65 (90) 99 12/21/19 22:00 89 22 127/61 (83) 98 12/21/19 21:30 87 22 121/55 (77) 94 12/21/19 21:00 94 24 134/61 (85) 95 12/21/19 20:00 4.0 12/21/19 20:00 Mechanical Ventilator 12/21/19 20:00 98.4 91 21 125/59 (81) 95 12/21/19 19:30 101 25 135/65 (88) 97 12/21/19 19:15 88 12/21/19 19:08 97 Nasal Cannula 4.0 36 12/21/19 19:00 95 22 119/72 (88) 98 12/21/19 18:00 103 19 119/59 (79) 88 12/21/19 17:00 95 24 127/57 (80) 95 12/21/19 16:00 98.4 91 29 121/61 (81) 96 12/21/19 16:00 93 12/21/19 16:00 Mechanical Ventilator 12/21/19 15:00 93 28 129/57 (81) 99 12/21/19 14:00 92 22 125/51 (75) 100 12/21/19 13:05 10.0 12/21/19 13:05 Venturi Mask 40 12/21/19 13:00 92 23 140/62 (88) 100 Intake and Output 12/21/19 12/22/19 19:00 07:00 Intake Total 1124.792 ml 757.74 ml Output Total 685 ml 755 ml Balance 439.792 ml 2.74 ml IV Total 774.792 ml 757.74 ml Tube Feeding 350 ml 0 ml Output Urine Total 685 ml 755 ml Laboratory Tests 12/21/19 17:06: POC Whole Blood Glucose 133H 12/21/19 23:27: POC Whole Blood Glucose [Pending] 12/22/19 04:45: White Blood Count 10.8, Red Blood Count 2.97L, Hemoglobin 9.7L, Hematocrit 31.7L , Mean Corpuscular Volume 107H, Mean Corpuscular Hemoglobin 32.5H, Mean Corpuscular Hemoglobin Concent 30.5L, Red Cell Distribution Width 13.4, Platelet Count 202, Mean Platelet Volume 7.0, Neutrophils (%) (Auto) , Lymphocytes (%) (Auto) , Monocytes (%) (Auto) , Eosinophils (%) (Auto) , Basophils (%) (Auto) , Sodium Level 153H, Potassium Level 4.4, Chloride Level 113H, Carbon Dioxide Level 34H, Anion Gap 7, Blood Urea Nitrogen 31H, Creatinine 1.0, Estimat Glomerular Filtration Rate 53.3, Glucose Level 151H, Calcium Level 8.6, Phosphorus Level 3.3, Magnesium Level 1.7L, Total Bilirubin 0.5, Aspartate Amino Transf (AST/SGOT) 5L, Alanine Aminotransferase (ALT/SGPT) 24, Alkaline Phosphatase 36L, Total Protein 6.9, Albumin 3.4, Globulin 3.5, Albumin/Globulin Ratio 1.0 Height (Feet): 5 Height (Inches): 7.00 Weight (Pounds): 221 General Appearance: lethargic EENT: normal ENT inspection Neck: normal alignment Cardiovascular: normal rate, regular rhythm Respiratory/Chest: no respiratory distress, no accessory muscle use Extremities: normal inspection Skin: normal pigmentation Hans Martini DO Dec 22, 2019 12:17
[2019-12-22] MEDS: Os-Cal (Oyster Shell) 500mg tab ORAL SCH ×2 (12:28→18:08)
[2019-12-22] MEDS: Phospha 250 Neutral tab ORAL SCH ×2 (12:28→18:08)
--- NOTE | 2019-12-22 13:48 | Nephrology Progress Note ---
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 Respiratory distress most likely secondary to pulmonary edema and or COPD exacerbation. Hyponatremia. Obese. Hypothyroidism. Elevated d-dimer. Elevated liver enzymes Plan December 21: Labs reviewed. On nonrebreather mask. D5W 50 cc an hour started for hypernatremia. Magnesium supplement given. Continue per consultants. December 20: Patient on weaning trial. No labs done today. Discussed with RN. Continue per consultants. December 19: Patient remains intubated. Renal parameters stable. Discussed with RN. Continue per consultants. December 18: Patient self extubated yesterday however was reintubated. Remains stable from renal standpoint of view. Discussed with RN. Discussed with Dr. Myers. December 17: Remains intubated. Remains full code. Failed weaning. Stable from renal standpoint of view. Continue per consultants. Discussed with DARREL Monten[place]. December 16: Remains intubated. Full code. Weaning in process. Stable from renal standpoint of view. December 15: Remains vented. Electrolytes improved. Continue per consultants. December 14: Patient remains in ICU intubated on ventilator. Potassium low. Phosphorus low. Supplements given. Renal parameters are stable. Continue per consultants. December 13: Patient remains in ICU intubated on ventilator. Discussed with RN. Labs reviewed. Creatinine 1.3. Potassium supplements given. Mag sulfate IV 2 g given. Continue per consultants. December 12: Patient in ICU. Intubated on ventilator. Discussed with RN. Labs reviewed. Potassium supplement given. Continue per consultants. Arterial blood gas indicative of CO2 retention. Patient on the way to ICU for intubation. Continue per pulmonary management. Pulmonary support, Check 2D echocardiogram. Previous 2D echo had a 50% ejection fraction. Keep blood sugar and blood pressure in check. Thyroid panel. Monitor electrolytes and renal parameters. Afterload reduction. Diuretics Monitor serum calcium, supplements via NG tube. Per orders. Subjective ROS Limited/Unobtainable: Yes Objective Objective Last 24 Hour Vital Signs Date Time Temp Pulse Resp B/P (MAP) Pulse Ox O2 Delivery O2 Flow Rate FiO2 12/22/19 13:00 91 24 134/66 (88) 96 7/11/20 12:03 85 12/22/19 12:00 60 12/22/19 12:00 Non-Rebreather 12/22/19 12:00 98.0 84 38 129/55 (79) 96 12/22/19 11:00 93 23 133/56 (81) 96 12/22/19 10:00 89 26 118/96 (103) 90 12/22/19 09:30 89 25 103/57 (72) 92 12/22/19 09:00 95 44 136/67 (90) 94 12/22/19 09:00 60 12/22/19 08:00 97 12/22/19 08:00 40 12/22/19 08:00 98.3 104 25 161/70 (100) 93 12/22/19 08:00 Non-Rebreather 12/22/19 07:30 96 Cool Aerosol 10.0 40 12/22/19 07:00 87 40 136/58 (84) 92 12/22/19 06:30 103 21 139/91 (107) 84 12/22/19 06:00 93 28 145/73 (97) 94 12/22/19 05:30 92 26 143/63 (89) 96 12/22/19 05:00 96 27 153/68 (96) 96 12/22/19 04:30 95 26 143/70 (94) 98 12/22/19 04:00 40 12/22/19 04:00 Mechanical Ventilator 12/22/19 04:00 103 27 129/55 (79) 93 12/22/19 03:49 110 12/22/19 03:30 87 23 125/54 (77) 96 12/22/19 03:00 85 31 126/53 (77) 94 12/22/19 02:30 99 25 98/80 (86) 94 12/22/19 02:00 88 29 126/58 (80) 100 12/22/19 01:30 87 26 132/59 (83) 97 12/22/19 01:00 86 31 126/64 (84) 92 12/22/19 00:30 91 26 132/68 (89) 98 12/22/19 00:00 Mechanical Ventilator 12/22/19 00:00 4.0 12/22/19 00:00 99.3 92 22 130/58 (82) 99 7/10/20 23:41 88 12/21/19 23:30 98 23 123/60 (81) 97 12/21/19 23:00 92 29 129/59 (82) 87 12/21/19 22:30 101 31 141/65 (90) 99 12/21/19 22:00 89 22 127/61 (83) 98 12/21/19 21:30 87 22 121/55 (77) 94 12/21/19 21:00 94 24 134/61 (85) 95 12/21/19 20:00 4.0 12/21/19 20:00 Mechanical Ventilator 12/21/19 20:00 98.4 91 21 125/59 (81) 95 12/21/19 19:30 101 25 135/65 (88) 97 12/21/19 19:15 88 12/21/19 19:08 97 Nasal Cannula 4.0 36 12/21/19 19:00 95 22 119/72 (88) 98 12/21/19 18:00 103 19 119/59 (79) 88 12/21/19 17:00 95 24 127/57 (80) 95 12/21/19 16:00 98.4 91 29 121/61 (81) 96 12/21/19 16:00 93 12/21/19 16:00 Mechanical Ventilator 12/21/19 15:00 93 28 129/57 (81) 99 12/21/19 14:00 92 22 125/51 (75) 100 Intake and Output 12/21/19 12/22/19 19:00 07:00 Intake Total 1124.792 ml 757.74 ml Output Total 685 ml 755 ml Balance 439.792 ml 2.74 ml IV Total 774.792 ml 757.74 ml Tube Feeding 350 ml 0 ml Output Urine Total 685 ml 755 ml Laboratory Tests 12/21/19 17:06: POC Whole Blood Glucose 133H 12/21/19 23:27: POC Whole Blood Glucose [Pending] 12/22/19 04:45: White Blood Count 10.8, Red Blood Count 2.97L, Hemoglobin 9.7L, Hematocrit 31.7L , Mean Corpuscular Volume 107H, Mean Corpuscular Hemoglobin 32.5H, Mean Corpuscular Hemoglobin Concent 30.5L, Red Cell Distribution Width 13.4, Platelet Count 202, Mean Platelet Volume 7.0, Neutrophils (%) (Auto) , Lymphocytes (%) (Auto) , Monocytes (%) (Auto) , Eosinophils (%) (Auto) , Basophils (%) (Auto) , Sodium Level 153H, Potassium Level 4.4, Chloride Level 113H, Carbon Dioxide Level 34H, Anion Gap 7, Blood Urea Nitrogen 31H, Creatinine 1.0, Estimat Glomerular Filtration Rate 53.3, Glucose Level 151H, Calcium Level 8.6, Phosphorus Level 3.3, Magnesium Level 1.7L, Total Bilirubin 0.5, Aspartate Amino Transf (AST/SGOT) 5L, Alanine Aminotransferase (ALT/SGPT) 24, Alkaline Phosphatase 36L, Total Protein 6.9, Albumin 3.4, Globulin 3.5, Albumin/Globulin Ratio 1.0 Height (Feet): 5 Height (Inches): 7.00 Weight (Pounds): 221 General Appearance: no apparent distress EENT: other - Now on nonrebreather mask Cardiovascular: tachycardia Respiratory/Chest: decreased breath sounds Abdomen: distended, other - Obese Bryan Ochoa MD Dec 22, 2019 13:48
--- NOTE | 2019-12-22 14:02 | NUR ---
NURSE NOTES: Repositioned patient. Kept dry, clean and comfortable..
--- NOTE | 2019-12-22 15:24 | Cardiac Electrophysiology PN ---
Assessment/Plan Assessment/Plan 1. Recurrent respiratory failure with BNP of more than 19,000. Echo showed normal ejection fraction. Off Lasix 2. Bradycardia requiring atropine due to respiratory failure as was on T piece at the time. No recurrence on the Vent 3. Respiratory failure, extubated now 4. History of Parkinson disease. 5. Hyperlipidemia. 6. Metabolic alkalosis. Better off Lasix 7. Bilateral UE edema. Venous Duplex was negative on 12/12/19. Will repeat DW RN Subjective Subjective Extubated and off pressors. No more laney. Has bilateral UE edema Objective Last 24 Hour Vital Signs Date Time Temp Pulse Resp B/P (MAP) Pulse Ox O2 Delivery O2 Flow Rate FiO2 12/22/19 13:00 91 24 134/66 (88) 96 12/22/19 12:03 85 12/22/19 12:00 60 12/22/19 12:00 Non-Rebreather 12/22/19 12:00 98.0 84 38 129/55 (79) 96 12/22/19 11:00 93 23 133/56 (81) 96 12/22/19 10:00 89 26 118/96 (103) 90 12/22/19 09:30 89 25 103/57 (72) 92 12/22/19 09:00 95 44 136/67 (90) 94 12/22/19 09:00 60 12/22/19 08:00 97 12/22/19 08:00 40 12/22/19 08:00 98.3 104 25 161/70 (100) 93 12/22/19 08:00 Non-Rebreather 12/22/19 07:30 96 Cool Aerosol 10.0 40 12/22/19 07:00 87 40 136/58 (84) 92 12/22/19 06:30 103 21 139/91 (107) 84 12/22/19 06:00 93 28 145/73 (97) 94 12/22/19 05:30 92 26 143/63 (89) 96 12/22/19 05:00 96 27 153/68 (96) 96 12/22/19 04:30 95 26 143/70 (94) 98 12/22/19 04:00 40 12/22/19 04:00 Mechanical Ventilator 12/22/19 04:00 103 27 129/55 (79) 93 7/11/20 03:49 110 12/22/19 03:30 87 23 125/54 (77) 96 12/22/19 03:00 85 31 126/53 (77) 94 12/22/19 02:30 99 25 98/80 (86) 94 12/22/19 02:00 88 29 126/58 (80) 100 12/22/19 01:30 87 26 132/59 (83) 97 12/22/19 01:00 86 31 126/64 (84) 92 12/22/19 00:30 91 26 132/68 (89) 98 12/22/19 00:00 Mechanical Ventilator 12/22/19 00:00 4.0 12/22/19 00:00 99.3 92 22 130/58 (82) 99 12/21/19 23:41 88 12/21/19 23:30 98 23 123/60 (81) 97 12/21/19 23:00 92 29 129/59 (82) 87 12/21/19 22:30 101 31 141/65 (90) 99 12/21/19 22:00 89 22 127/61 (83) 98 12/21/19 21:30 87 22 121/55 (77) 94 12/21/19 21:00 94 24 134/61 (85) 95 12/21/19 20:00 4.0 12/21/19 20:00 Mechanical Ventilator 12/21/19 20:00 98.4 91 21 125/59 (81) 95 12/21/19 19:30 101 25 135/65 (88) 97 12/21/19 19:15 88 12/21/19 19:08 97 Nasal Cannula 4.0 36 12/21/19 19:00 95 22 119/72 (88) 98 12/21/19 18:00 103 19 119/59 (79) 88 12/21/19 17:00 95 24 127/57 (80) 95 12/21/19 16:00 98.4 91 29 121/61 (81) 96 12/21/19 16:00 93 12/21/19 16:00 Mechanical Ventilator Intake and Output 12/21/19 12/22/19 19:00 07:00 Intake Total 1124.792 ml 757.74 ml Output Total 685 ml 755 ml Balance 439.792 ml 2.74 ml IV Total 774.792 ml 757.74 ml Tube Feeding 350 ml 0 ml Output Urine Total 685 ml 755 ml Laboratory Tests Test 12/21/19 17:06 12/21/19 23:27 12/22/19 04:45 POC Whole Blood Glucose 133 MG/DL (74-106) H Pending White Blood Count 10.8 K/UL (4.8-10.8) Red Blood Count 2.97 M/UL (4.20-5.40) L Hemoglobin 9.7 G/DL (12.0-16.0) L Hematocrit 31.7 % (37.0-47.0) L Mean Corpuscular Volume 107 FL (80-99) H Mean Corpuscular Hemoglobin 32.5 PG (27.0-31.0) H Mean Corpuscular Hemoglobin Concent 30.5 G/DL (32.0-36.0) L Red Cell Distribution Width 13.4 % (11.6-14.8) Platelet Count 202 K/UL (150-450) Mean Platelet Volume 7.0 FL (6.5-10.1) Neutrophils (%) (Auto) % (45.0-75.0) Lymphocytes (%) (Auto) % (20.0-45.0) Monocytes (%) (Auto) % (1.0-10.0) Eosinophils (%) (Auto) % (0.0-3.0) Basophils (%) (Auto) % (0.0-2.0) Sodium Level 153 MMOL/L (136-145) H Potassium Level 4.4 MMOL/L (3.5-5.1) Chloride Level 113 MMOL/L (98-107) H Carbon Dioxide Level 34 MMOL/L (21-32) H Anion Gap 7 mmol/L (5-15) Blood Urea Nitrogen 31 mg/dL (7-18) H Creatinine 1.0 MG/DL (0.55-1.30) Estimat Glomerular Filtration Rate 53.3 mL/min (>60) Glucose Level 151 MG/DL (74-106) H Calcium Level 8.6 MG/DL (8.5-10.1) Phosphorus Level 3.3 MG/DL (2.5-4.9) Magnesium Level 1.7 MG/DL (1.8-2.4) L Total Bilirubin 0.5 MG/DL (0.2-1.0) Aspartate Amino Transf (AST/SGOT) 5 U/L (15-37) L Alanine Aminotransferase (ALT/SGPT) 24 U/L (12-78) Alkaline Phosphatase 36 U/L (46-116) L Total Protein 6.9 G/DL (6.4-8.2) Albumin 3.4 G/DL (3.4-5.0) Globulin 3.5 g/dL Albumin/Globulin Ratio 1.0 (1.0-2.7) Objective HEAD AND NECK: No JVD. LUNGS: Coarse rhonchi. CARDIOVASCULAR: Shows regular S1 and S2 and tachycardic. ABDOMEN: Soft. EXTREMITIES: Bilateral Arm edema. Cameron Davies MD Dec 22, 2019 15:24
--- NOTE | 2019-12-22 16:02 | NUR ---
NURSE NOTES: Provided oral care. Repositioned patient.
--- NOTE | 2019-12-22 17:45 | NUR ---
NURSE NOTES: Bed bath given.
[2019-12-22] MEDS ORDERED: NS 275ml ONE (17:52)
[2019-12-22] MEDS ORDERED: D5W 110ml ONE (17:52)
[2019-12-22] MEDS: Amantadine 100mg cap ORAL SCH (18:07)
[2019-12-22] MEDS: Docusate 100mg cap ORAL SCH (18:08)
--- NOTE | 2019-12-22 18:39 | NUR ---
NURSE NOTES: Patient is calm. Still on non-rebreather mask w/ cool aerosol, FiO2 60%. O2 sat 94% on the monitor. Will continue plan of care.
--- NOTE | 2019-12-22 19:14 | NUR ---
HAND-OFF: Report given to DARREL Singer. Endorsed plan of care.
--- NOTE | 2019-12-22 19:33 | NUR ---
NURSE NOTES: PATIENT ALERT, DENIED PAIN OR SOB AT THIS TIME, O2 SATURATION OVER 96% ON FIO2 60% COOL AEROSOL, HR 90'S/MIN SR NOTED, ABDOMEN SOFT, NON TENDER, NO BM STATUS, F/C INTACT AND PATENT, YELLOW URINE OUTED GRAVITY, PPL TO LEFT FA 22G INTACT AND PATENT, ONGOING IV FLUID D5W AT 50ML/HR VIA PPL, 2 POINT SOFT RESTRAINT STATUS, ON P200 BED, MADE LOWER BED POSITION, ON BED ALARM AND LOCKED, WILL CONTINUE TO MONITOR.
[2019-12-22] MEDS: Miralax 17gm pkt ORAL SCH (20:49)
[2019-12-22] MEDS: fentaNYL 2500mcg/NS 250ml 250 ML IV SCH (20:53)
--- NOTE | 2019-12-22 21:26 | NUR ---
NURSE NOTES: GIVEN TYLENOL 650MG BY PO FOR NECK PAIN OF 10/3 AT 2056PM. PATIENT DENIED PAIN AT THIS TIME, WILL CONTINUE TO MONITOR.
--- NOTE | 2019-12-22 22:27 | NUR ---
NURSE NOTES: Patient noted to be tachypneic and saying "help me" When asked if she is having a hard time breathing patient is able to verbalize "yes". RT paged and STAT ABG ordered at this time.
--- NOTE | 2019-12-22 22:41 | NUR ---
NURSE NOTES: Called and spoke with MD Myers at this time. Informed him patient is sob and tachypneic. ABG was done and results were relayed to MD. Ordered to place patient on a bi-pap 28/11 at this time. MD asked about sedation, informed him patient is currently getting Haldo. Orders read back and confirmed by .
--- NOTE | 2019-12-22 22:45 | NUR ---
RESPIRATORY NOTE: Called to pt's room to assess pt from SOB. ABG was drawn (see lab for results). Pt placed on BiPAP 18/6, backup rate 12, 60%, per MD Louis. Pt on a Facial mask, skin intact, no redness/breakdowns noted. Foam tape applied on pt's nosebridge/cheeks/chin to prevent skin irritations. BiPAP plugged into red outlet, alarms on & audible. Ventilator on standby at bedside, plugged into red outlet. Ambubag at bedside. Pt tolerating well. Will continue to monitor pt.
--- NOTE | 2019-12-22 23:03 | NUR ---
NURSE NOTES: PATIENT CALM, ASLEEP STATUS, O2 SATURATION 98% NOTED ON BIPAP I/E 28/11, FIO2 60% AT THIS TIME, WILL CONTINUE PLAN OF CARE.
[2019-12-23] VITALS (26 sets, daily range): BP systolic 130–158; BP diastolic 50–114
--- NOTE | 2019-12-23 01:29 | NUR ---
NURSE NOTES: ASLEEP STATUS, NO PAIN OR SOB NOTED AT THIS TIME, WILL CONTINUE TO MONITOR.
--- NOTE | 2019-12-23 03:50 | NUR ---
NURSE NOTES: MORNING CARE AND ORAL CARE WAS DONE, NO BM STATUS.
--- NOTE | 2019-12-23 05:14 | Geriatric Medicine Prog Note ---
DATE: 12/22/[address] Jabari Adams. SUBJECTIVE: The patient feels comfortable, being extubated and ready for . OBJECTIVE: VITAL SIGNS: Blood pressure 134/66, pulse 91, respiratory rate 20, temperature 97.8. LUNGS: Clear. CARDIOVASCULAR: Regular rate. ABDOMEN: Soft. LABORATORY DATA: Glucose is 147. IMPRESSION: . Kilo Goldberg M.D. DR: LUCIANO JOB#: [id number] CC:
[2019-12-23] MEDS: Solu-MEDROL 40mg Inj IVP SCH ×3 (05:30→17:56)
[2019-12-23] MEDS: NovoLOG Insulin Flexpen SUBQ SCH ×3 (05:31→17:58)
[2019-12-23] MEDS: Piperacillin/Tazobactam 3.375 GM in NS 110 ML IVPB SCH ×3 (05:31→21:33)
[2019-12-23 06:05] LABS: HEMATOCRIT 31.4 % (37.0-47.0); HEMOGLOBIN 9.5 G/DL (12.0-16.0); MEAN CORPUSCULAR VOLUME 106 FL (80-99); PLATELET COUNT 184 K/UL (150-450); RED BLOOD COUNT 2.96 M/UL (4.20-5.40); RED CELL DISTRIBUTION WIDTH 13.3 % (11.6-14.8); WHITE BLOOD COUNT 9.1 K/UL (4.8-10.8)
--- NOTE | 2019-12-23 06:17 | NUR ---
NURSE NOTES: PATIENT ASLEEP STATUS, VSS, NO SOB NOTED, ON BIPAP I/E 18/6, FIO2 60% STATUS, WILL CONTINUE PLAN OF CARE.
[2019-12-23 06:27] LABS: ANION GAP 5 mmol/L (5-15); BLOOD UREA NITROGEN 32 mg/dL (7-18); CALCIUM 8.7 MG/DL (8.5-10.1); CARBON DIOXIDE 35 MMOL/L (21-32); CHLORIDE 112 MMOL/L (98-107); SODIUM 152 MMOL/L (136-145)
--- NOTE | 2019-12-23 06:59 | NUR ---
HAND-OFF: Report given to DARREL LYNN.
--- NOTE | 2019-12-23 07:12 | NUR ---
NURSE NOTES: Received report from DARREL Singer. Patient asleep and responsive to verbal, open her eyes with tracking. No complains discomfort/pain at this time. On bipap 18/6 with FiO2 60%. O2 sat 99% on the monitor. Ace intact and draining with yellow color urine. Left forearm 22G IV and Left Hand 22G IV intact and running with D5W @ 50ml/hr. Kept dry, clean, comfortable and HOB>30.
--- NOTE | 2019-12-23 07:32 | NUR ---
NURSE NOTES: Seen by Dr. Vidal and assessed patient. He said insert NG tube if intubate her. Will continue plan of care.
--- NOTE | 2019-12-23 07:42 | General Progress Note ---
Assessment/Plan Status: progressing, unchanged Assessment/Plan: Assessment - Resp failure - r/o COVID -- x 2 negative - COPD - HTN - Anemia - Abnormal LFT Recommendations - extubated now -NGT is out - Elevate HOB - abx - follow labs - f/u hepatitis serologies>>> neg -repeat labs - patient now on BIPAP. ? needs reintubation -plan NGT placement for tomorrow if no improvement Subjective ROS Limited/Unobtainable: No Allergies: Coded Allergies: LITHIUM (Verified Allergy, Unknown, 02/07/19) Objective Last 24 Hour Vital Signs Date Time Temp Pulse Resp B/P (MAP) Pulse Ox O2 Delivery O2 Flow Rate FiO2 12/23/19 07:35 40 12/23/19 07:32 40 12/23/19 07:16 86 24 100 60 12/23/19 06:00 74 21 140/50 (80) 100 12/23/19 05:00 76 22 139/55 (83) 99 12/23/19 04:01 75 12/23/19 04:00 97.7 76 22 130/52 (78) 99 12/23/19 04:00 Bi-pap 12/23/19 04:00 60 12/23/19 03:03 75 21 100 60 12/23/19 03:00 76 24 137/63 (87) 98 12/23/19 02:00 74 22 131/54 (79) 99 12/23/19 01:00 83 25 142/57 (85) 99 12/23/19 00:00 Bi-pap 12/23/19 00:00 97.8 85 24 138/52 (80) 98 12/23/19 00:00 60 12/22/19 23:08 77 12/22/19 23:00 78 24 132/52 (78) 98 12/22/19 22:46 83 23 137/57 (83) 98 12/22/19 22:40 83 22 98 60 12/22/19 22:00 84 25 118/50 (72) 93 12/22/19 21:00 94 26 146/63 (90) 98 12/22/19 20:53 27 130/56 Venturi Mask 60 12/22/19 20:00 98.5 93 29 144/74 (97) 97 12/22/19 20:00 60 12/22/19 20:00 Venturi Mask 12/22/19 19:34 97 12/22/19 19:00 97 26 127/53 (77) 86 12/22/19 18:50 98 Cool Aerosol 10.0 60 12/22/19 18:00 93 26 133/80 (97) 85 12/22/19 17:00 97 24 136/67 (90) 93 12/22/19 16:00 Non-Rebreather 12/22/19 16:00 60 12/22/19 16:00 94 12/22/19 16:00 98.2 94 26 136/59 (84) 94 12/22/19 16:00 94 26 136/59 (84) 94 12/22/19 15:00 93 24 145/59 (87) 96 12/22/19 14:00 97 25 154/59 (90) 90 12/22/19 13:00 91 24 134/66 (88) 96 12/22/19 12:03 85 12/22/19 12:00 60 12/22/19 12:00 Non-Rebreather 12/22/19 12:00 98.0 84 38 129/55 (79) 96 12/22/19 11:00 93 23 133/56 (81) 96 12/22/19 10:00 89 26 118/96 (103) 90 12/22/19 09:30 89 25 103/57 (72) 92 12/22/19 09:00 95 44 136/67 (90) 94 12/22/19 09:00 60 12/22/19 08:00 97 12/22/19 08:00 40 12/22/19 08:00 98.3 104 25 161/70 (100) 93 12/22/19 08:00 Non-Rebreather Intake and Output 12/22/19 12/23/19 19:00 07:00 Intake Total 895.26 ml 801.0 ml Output Total 650 ml 610 ml Balance 245.26 ml 191.0 ml Intake Oral 300 ml IV Total 595.26 ml 751.0 ml Tube Feeding 0 ml 0 ml Other 50 ml Output Urine Total 650 ml 610 ml Laboratory Tests 12/22/19 22:25: Arterial Blood pH 7.271L, Arterial Blood Partial Pressure CO2 69.5*H, Arterial Blood Partial Pressure O2 78.4, Arterial Blood HCO3 31.3H, Arterial Blood Oxygen Saturation 92.5L, Arterial Blood Base Excess 3.1H, Raphael Test Positive 12/23/19 05:20: White Blood Count 9.1, Red Blood Count 2.96L, Hemoglobin 9.5L, Hematocrit 31.4L , Mean Corpuscular Volume 106H, Mean Corpuscular Hemoglobin 32.2H, Mean Corpuscular Hemoglobin Concent 30.3L, Red Cell Distribution Width 13.3, Platelet Count 184, Mean Platelet Volume 6.7, Neutrophils (%) (Auto) , Lymphocytes (%) (Auto) , Monocytes (%) (Auto) , Eosinophils (%) (Auto) , Basophils (%) (Auto) , Neutrophils % (Manual) [Pending], Lymphocytes % (Manual) [Pending], Platelet Estimate [Pending], Platelet Morphology [Pending], Sodium Level 152H, Potassium Level 5.0, Chloride Level 112H, Carbon Dioxide Level 35H, Anion Gap 5, Blood Urea Nitrogen 32H, Creatinine 1.0, Estimat Glomerular Filtration Rate 53.3, Glucose Level 143H, Calcium Level 8.7 12/23/19 05:25: POC Whole Blood Glucose 128H 12/23/19 07:16: Arterial Blood pH 7.371, Arterial Blood Partial Pressure CO2 58.1*H, Arterial Blood Partial Pressure O2 96.7, Arterial Blood HCO3 32.9H, Arterial Blood Oxygen Saturation 96.7, Arterial Blood Base Excess 6.4H, Raphael Test Positive Height (Feet): 5 Height (Inches): 7.00 Weight (Pounds): 223 General Appearance: lethargic EENT: normal ENT inspection Neck: supple Cardiovascular: tachycardia Respiratory/Chest: decreased breath sounds Abdomen: hypoactive bowel sounds Extremities: non-tender Kirk Vidal MD Dec 23, 2019 07:42
--- NOTE | 2019-12-23 07:44 | NUR ---
NURSE NOTES: Seen by Dr. Escobar and assessed patient.
--- NOTE | 2019-12-23 08:10 | Pulmonology Progress Note ---
Subjective ROS Limited/Unobtainable: No Interval Events: Extubated 12/21/19; now on BiPAP Constitutional: Reports: no symptoms HEENT: Repors: no symptoms Respiratory: Reports: no symptoms Cardiovascular: Reports: no symptoms Gastrointestinal/Abdominal: Reports: no symptoms Genitourinary: Reports: no symptoms Allergies: Coded Allergies: LITHIUM (Verified Allergy, Unknown, 02/07/19) All Systems: reviewed and negative except above Objective Last 24 Hour Vital Signs Date Time Temp Pulse Resp B/P (MAP) Pulse Ox O2 Delivery O2 Flow Rate FiO2 12/23/19 07:35 40 12/23/19 07:32 40 12/23/19 07:16 86 24 100 60 12/23/19 06:00 74 21 140/50 (80) 100 12/23/19 05:00 76 22 139/55 (83) 99 12/23/19 04:01 75 12/23/19 04:00 97.7 76 22 130/52 (78) 99 12/23/19 04:00 Bi-pap 12/23/19 04:00 60 12/23/19 03:03 75 21 100 60 12/23/19 03:00 76 24 137/63 (87) 98 12/23/19 02:00 74 22 131/54 (79) 99 12/23/19 01:00 83 25 142/57 (85) 99 12/23/19 00:00 Bi-pap 12/23/19 00:00 97.8 85 24 138/52 (80) 98 12/23/19 00:00 60 12/22/19 23:08 77 12/22/19 23:00 78 24 132/52 (78) 98 12/22/19 22:46 83 23 137/57 (83) 98 12/22/19 22:40 83 22 98 60 12/22/19 22:00 84 25 118/50 (72) 93 12/22/19 21:00 94 26 146/63 (90) 98 12/22/19 20:53 27 130/56 Venturi Mask 60 12/22/19 20:00 98.5 93 29 144/74 (97) 97 12/22/19 20:00 60 12/22/19 20:00 Venturi Mask 12/22/19 19:34 97 12/22/19 19:00 97 26 127/53 (77) 86 12/22/19 18:50 98 Cool Aerosol 10.0 60 12/22/19 18:00 93 26 133/80 (97) 85 12/22/19 17:00 97 24 136/67 (90) 93 12/22/19 16:00 Non-Rebreather 12/22/19 16:00 60 12/22/19 16:00 94 12/22/19 16:00 98.2 94 26 136/59 (84) 94 12/22/19 16:00 94 26 136/59 (84) 94 12/22/19 15:00 93 24 145/59 (87) 96 12/22/19 14:00 97 25 154/59 (90) 90 12/22/19 13:00 91 24 134/66 (88) 96 12/22/19 12:03 85 12/22/19 12:00 60 12/22/19 12:00 Non-Rebreather 12/22/19 12:00 98.0 84 38 129/55 (79) 96 12/22/19 11:00 93 23 133/56 (81) 96 12/22/19 10:00 89 26 118/96 (103) 90 12/22/19 09:30 89 25 103/57 (72) 92 12/22/19 09:00 95 44 136/67 (90) 94 12/22/19 09:00 60 Intake and Output 12/22/19 12/23/19 19:00 07:00 Intake Total 895.26 ml 801.0 ml Output Total 650 ml 610 ml Balance 245.26 ml 191.0 ml Intake Oral 300 ml IV Total 595.26 ml 751.0 ml Tube Feeding 0 ml 0 ml Other 50 ml Output Urine Total 650 ml 610 ml General Appearance: no acute distress Respiratory: chest wall non-tender, lungs clear Cardiovascular: normal peripheral pulses, normal rate Abdomen: normal bowel sounds Laboratory Tests 12/22/19 22:25: Arterial Blood pH 7.271L, Arterial Blood Partial Pressure CO2 69.5*H, Arterial Blood Partial Pressure O2 78.4, Arterial Blood HCO3 31.3H, Arterial Blood Oxygen Saturation 92.5L, Arterial Blood Base Excess 3.1H, Raphael Test Positive 12/23/19 05:20: White Blood Count 9.1, Red Blood Count 2.96L, Hemoglobin 9.5L, Hematocrit 31.4L , Mean Corpuscular Volume 106H, Mean Corpuscular Hemoglobin 32.2H, Mean Corpuscular Hemoglobin Concent 30.3L, Red Cell Distribution Width 13.3, Platelet Count 184, Mean Platelet Volume 6.7, Neutrophils (%) (Auto) , Lymphocytes (%) (Auto) , Monocytes (%) (Auto) , Eosinophils (%) (Auto) , Basophils (%) (Auto) , Differential Total Cells Counted 100, Neutrophils % ( Manual) 89H, Lymphocytes % (Manual) 7L, Monocytes % (Manual) 4, Eosinophils % ( Manual) 0, Basophils % (Manual) 0, Band Neutrophils 0, Platelet Estimate Adequate, Platelet Morphology Normal, Hypochromasia 1+, Macrocytosis 1+, Sodium Level 152H, Potassium Level 5.0, Chloride Level 112H, Carbon Dioxide Level 35H, Anion Gap 5, Blood Urea Nitrogen 32H, Creatinine 1.0, Estimat Glomerular Filtration Rate 53.3, Glucose Level 143H, Calcium Level 8.7 12/23/19 05:25: POC Whole Blood Glucose 128H 12/23/19 07:16: Arterial Blood pH 7.371, Arterial Blood Partial Pressure CO2 58.1*H, Arterial Blood Partial Pressure O2 96.7, Arterial Blood HCO3 32.9H, Arterial Blood Oxygen Saturation 96.7, Arterial Blood Base Excess 6.4H, Raphael Test Positive Current Medications Medications (Trade) Dose Ordered Sig/Angie Route PRN Reason Start Time Stop Time Status Last Admin Dose Admin Acetaminophen (Tylenol) 650 mg Q6H PRN ORAL Mild Pain (Pain Scale 1-3) 12/12/19 12:30 01/11/20 12:29 12/22/19 20:56 Acetaminophen (Tylenol) 1,000 mg Q6H PRN ORAL MODERATE PAIN 12/12/19 12:30 01/11/20 12:29 Amantadine HCl (Symmetrel) 100 mg TWICE A DAY ORAL 12/22/19 18:00 01/11/20 08:59 12/22/19 18:07 Aspirin (ASA) 324 mg DAILY ORAL 12/23/19 09:00 02/04/20 08:59 Atorvastatin Calcium (Lipitor) 10 mg BEDTIME ORAL 12/22/19 21:00 03/11/20 20:59 12/22/19 20:49 Calcium Carbonate (Os-Octavio) 500 mg THREE TIMES A DAY ORAL 12/22/19 13:00 03/20/20 17:59 12/22/19 18:08 Clonidine HCl (Catapres Tab) 0.1 mg Q6H PRN GT For high BP over 160 systolic 12/15/19 16:30 03/11/20 12:30 Dextrose 1,000 ml @ 50 mls/hr Q20H IV 12/22/19 09:00 01/21/20 08:59 12/23/19 05:30 Dextrose (Dextrose 50%) 25 ml Q30M PRN IV Hypoglycemia 12/13/19 07:15 03/12/20 07:14 Dextrose (Dextrose 50%) 50 ml Q30M PRN IV Hypoglycemia 12/13/19 07:15 03/12/20 07:14 Divalproex Sodium (Depakote) 250 mg EVERY 12 HOURS ORAL 12/22/19 21:00 01/12/20 20:59 12/22/19 20:49 Docusate Sodium (Colace) 100 mg TWICE A DAY ORAL 12/22/19 18:00 01/14/20 17:59 12/22/19 18:08 Fentanyl Citrate 250 ml @ 0 mls/hr Q24H IV 12/18/19 20:53 03/17/20 20:52 12/19/19 20:56 Insulin Aspart (NovoLOG) EVERY 6 HOURS SUBQ 12/13/19 12:00 03/12/20 11:59 12/22/19 23:31 Levothyroxine Sodium (Synthroid) 75 mcg DAILY IV 12/13/19 09:00 01/11/20 09:29 12/22/19 08:48 Methylprednisolone Sodium Succinate (Solu-MEDROL) 20 mg EVERY 6 HOURS IVP 12/22/19 12:00 03/18/20 11:59 12/23/19 05:30 Nitroglycerin (Ntg) 0.4 mg Q5MIN X 3 DOSES PRN SL CHEST PAIN 12/12/19 12:00 01/10/20 21:44 Olanzapine (ZyPREXA) 5 mg BID ORAL 12/22/19 18:00 01/26/20 08:59 12/22/19 18:07 Pantoprazole (Protonix) 40 mg EVERY 12 HOURS IVP 12/14/19 09:00 01/13/20 08:59 12/22/19 20:49 Phosphorus (Phospha 250 Neutral) 250 mg THREE TIMES A DAY ORAL 12/22/19 13:00 01/14/20 08:59 12/22/19 18:08 Piperacillin Sod/ Tazobactam Sod 3.375 gm/Sodium Chloride 110 ml @ 27.5 mls/hr EVERY 8 HOURS IVPB 12/19/19 14:00 12/28/19 13:59 12/23/19 05:31 Polyethylene Glycol (Miralax) 17 gm BEDTIME ORAL 12/22/19 21:00 01/18/20 20:59 12/22/19 20:49 Quetiapine Fumarate (SEROqueL) 50 mg Q12HR ORAL 12/22/19 21:00 02/05/20 20:59 12/22/19 20:50 Assessment/Plan Assessment/Plan IMPRESSION: 1. Respiratory failure. Now on BiPAP 2. Has healthcare-associated pneumonia; is negative for COVID-19. 3. Psych disorder. 4. Obesity. 5. Hypertension. 6. Hypernatremia DISCUSSION: Continue broad spectrum antibiotics. Will dc olanzepine Has negative COVID-19 swab. Switched to Seroquel Now on D5W Sincere Myers M.D. Sincere Myers MD Dec 23, 2019 08:10
[2019-12-23] MEDS: Os-Cal (Oyster Shell) 500mg tab ORAL SCH ×3 (08:14→17:56)
[2019-12-23] MEDS: Aspirin Baby 81mg ORAL SCH (08:15)
[2019-12-23] MEDS: Phospha 250 Neutral tab ORAL SCH ×3 (08:15→17:56)
[2019-12-23] MEDS: Amantadine 100mg cap ORAL SCH ×2 (08:15→17:56)
[2019-12-23] MEDS: Docusate 100mg cap ORAL SCH ×2 (08:15→17:56)
[2019-12-23] MEDS: Pantoprazole Inj IVP SCH ×2 (08:16→20:20)
--- NOTE | 2019-12-23 09:01 | NUR ---
NURSE NOTES: Repositioned patient. All due medication given as ordered.
--- NOTE | 2019-12-23 10:06 | General Progress Note ---
Assessment/Plan Problem List: (1) Respiratory distress ICD Codes: R06.03 - Acute respiratory distress SNOMED: 307048133 (2) Dyspnea ICD Codes: R06.00 - Dyspnea, unspecified SNOMED: 151150831 (3) Diabetes 1.5, managed as type 2 ICD Codes: E13.9 - Other specified diabetes mellitus without complications SNOMED: 341727103 (4) Schizophrenia ICD Codes: F20.9 - Schizophrenia, unspecified SNOMED: 05371914 Status: unchanged Assessment/Plan: o2 pulm tx abx cbc bmp am Subjective Constitutional: Reports: weakness Allergies: Coded Allergies: LITHIUM (Verified Allergy, Unknown, 02/07/19) All Systems: reviewed and negative except above Subjective o2 mask sleepy in icu Objective Last 24 Hour Vital Signs Date Time Temp Pulse Resp B/P (MAP) Pulse Ox O2 Delivery O2 Flow Rate FiO2 12/23/19 08:45 50 12/23/19 08:00 97.2 78 26 149/60 (89) 97 12/23/19 08:00 Bi-pap 12/23/19 07:35 40 12/23/19 07:32 40 12/23/19 07:16 86 24 100 60 12/23/19 07:00 74 22 138/62 (87) 100 12/23/19 06:00 74 21 140/50 (80) 100 12/23/19 05:00 76 22 139/55 (83) 99 12/23/19 04:01 75 12/23/19 04:00 97.7 76 22 130/52 (78) 99 12/23/19 04:00 Bi-pap 12/23/19 04:00 60 12/23/19 03:03 75 21 100 60 12/23/19 03:00 76 24 137/63 (87) 98 12/23/19 02:00 74 22 131/54 (79) 99 12/23/19 01:00 83 25 142/57 (85) 99 12/23/19 00:00 Bi-pap 12/23/19 00:00 97.8 85 24 138/52 (80) 98 12/23/19 00:00 60 12/22/19 23:08 77 12/22/19 23:00 78 24 132/52 (78) 98 12/22/19 22:46 83 23 137/57 (83) 98 12/22/19 22:40 83 22 98 60 12/22/19 22:00 84 25 118/50 (72) 93 12/22/19 21:00 94 26 146/63 (90) 98 12/22/19 20:53 27 130/56 Venturi Mask 60 12/22/19 20:00 98.5 93 29 144/74 (97) 97 12/22/19 20:00 60 12/22/19 20:00 Venturi Mask 12/22/19 19:34 97 12/22/19 19:00 97 26 127/53 (77) 86 12/22/19 18:50 98 Cool Aerosol 10.0 60 12/22/19 18:00 93 26 133/80 (97) 85 12/22/19 17:00 97 24 136/67 (90) 93 12/22/19 16:00 Non-Rebreather 12/22/19 16:00 60 12/22/19 16:00 94 12/22/19 16:00 98.2 94 26 136/59 (84) 94 12/22/19 16:00 94 26 136/59 (84) 94 12/22/19 15:00 93 24 145/59 (87) 96 12/22/19 14:00 97 25 154/59 (90) 90 12/22/19 13:00 91 24 134/66 (88) 96 12/22/19 12:03 85 12/22/19 12:00 60 12/22/19 12:00 Non-Rebreather 12/22/19 12:00 98.0 84 38 129/55 (79) 96 12/22/19 11:00 93 23 133/56 (81) 96 Intake and Output 12/22/19 12/23/19 19:00 07:00 Intake Total 895.26 ml 801.0 ml Output Total 650 ml 610 ml Balance 245.26 ml 191.0 ml Intake Oral 300 ml IV Total 595.26 ml 751.0 ml Tube Feeding 0 ml 0 ml Other 50 ml Output Urine Total 650 ml 610 ml Laboratory Tests 12/22/19 22:25: Arterial Blood pH 7.271L, Arterial Blood Partial Pressure CO2 69.5*H, Arterial Blood Partial Pressure O2 78.4, Arterial Blood HCO3 31.3H, Arterial Blood Oxygen Saturation 92.5L, Arterial Blood Base Excess 3.1H, Raphael Test Positive 12/23/19 05:20: White Blood Count 9.1, Red Blood Count 2.96L, Hemoglobin 9.5L, Hematocrit 31.4L , Mean Corpuscular Volume 106H, Mean Corpuscular Hemoglobin 32.2H, Mean Corpuscular Hemoglobin Concent 30.3L, Red Cell Distribution Width 13.3, Platelet Count 184, Mean Platelet Volume 6.7, Neutrophils (%) (Auto) , Lymphocytes (%) (Auto) , Monocytes (%) (Auto) , Eosinophils (%) (Auto) , Basophils (%) (Auto) , Differential Total Cells Counted 100, Neutrophils % ( Manual) 89H, Lymphocytes % (Manual) 7L, Monocytes % (Manual) 4, Eosinophils % ( Manual) 0, Basophils % (Manual) 0, Band Neutrophils 0, Platelet Estimate Adequate, Platelet Morphology Normal, Hypochromasia 1+, Macrocytosis 1+, Sodium Level 152H, Potassium Level 5.0, Chloride Level 112H, Carbon Dioxide Level 35H, Anion Gap 5, Blood Urea Nitrogen 32H, Creatinine 1.0, Estimat Glomerular Filtration Rate 53.3, Glucose Level 143H, Calcium Level 8.7 12/23/19 05:25: POC Whole Blood Glucose 128H 12/23/19 07:16: Arterial Blood pH 7.371, Arterial Blood Partial Pressure CO2 58.1*H, Arterial Blood Partial Pressure O2 96.7, Arterial Blood HCO3 32.9H, Arterial Blood Oxygen Saturation 96.7, Arterial Blood Base Excess 6.4H, Raphael Test Positive Height (Feet): 5 Height (Inches): 7.00 Weight (Pounds): 223 General Appearance: lethargic EENT: normal ENT inspection Neck: normal alignment Cardiovascular: normal peripheral pulses, normal rate, regular rhythm Respiratory/Chest: chest wall non-tender, lungs clear, normal breath sounds Abdomen: normal bowel sounds, non tender, soft Extremities: normal inspection Edema: no edema noted Arm (L), no edema noted Arm (R), no edema noted Leg (L), no edema noted Leg (R), no edema noted Pedal (L), no edema noted Pedal (R), no edema noted Generalized Neurologic: motor weakness Skin: normal pigmentation, warm/dry Hans Martini DO Dec 23, 2019 10:06
--- NOTE | 2019-12-23 10:12 | NUR ---
NURSE NOTES: Repositioned patient. Oral care provided.
--- NOTE | 2019-12-23 11:21 | Infectious Diseases Prog Note ---
Assessment/Plan Assessment/Plan IMPRESSION: COPD exacerbation, Pneumonia, COID19 X 2: negative Acute respiratory failure with hypercapnia Dementia, Parkinson, Mitral valve regurgitation, Hypertension, Hypothyroidism. Hypokalemia RECOMMENDATION: Change Zosyn X 1 day Case was D/W RN Subjective ROS Limited/Unobtainable: Yes Respiratory: Reports: other - extubated Neurologic: Reports: confusion, other - on restraint Allergies: Coded Allergies: LITHIUM (Verified Allergy, Unknown, 02/07/19) Objective Last 24 Hour Vital Signs Date Time Temp Pulse Resp B/P (MAP) Pulse Ox O2 Delivery O2 Flow Rate FiO2 12/23/19 10:00 77 24 145/52 (83) 100 12/23/19 09:00 79 23 140/53 (82) 100 12/23/19 08:45 50 12/23/19 08:00 97.2 78 26 149/60 (89) 97 12/23/19 08:00 Bi-pap 12/23/19 07:35 40 12/23/19 07:32 40 12/23/19 07:16 86 24 100 60 12/23/19 07:00 74 22 138/62 (87) 100 12/23/19 06:00 74 21 140/50 (80) 100 12/23/19 05:00 76 22 139/55 (83) 99 12/23/19 04:01 75 12/23/19 04:00 97.7 76 22 130/52 (78) 99 12/23/19 04:00 Bi-pap 12/23/19 04:00 60 12/23/19 03:03 75 21 100 60 12/23/19 03:00 76 24 137/63 (87) 98 12/23/19 02:00 74 22 131/54 (79) 99 12/23/19 01:00 83 25 142/57 (85) 99 12/23/19 00:00 Bi-pap 12/23/19 00:00 97.8 85 24 138/52 (80) 98 12/23/19 00:00 60 12/22/19 23:08 77 12/22/19 23:00 78 24 132/52 (78) 98 12/22/19 22:46 83 23 137/57 (83) 98 12/22/19 22:40 83 22 98 60 12/22/19 22:00 84 25 118/50 (72) 93 12/22/19 21:00 94 26 146/63 (90) 98 12/22/19 20:53 27 130/56 Venturi Mask 60 12/22/19 20:00 98.5 93 29 144/74 (97) 97 12/22/19 20:00 60 12/22/19 20:00 Venturi Mask 12/22/19 19:34 97 12/22/19 19:00 97 26 127/53 (77) 86 12/22/19 18:50 98 Cool Aerosol 10.0 60 12/22/19 18:00 93 26 133/80 (97) 85 12/22/19 17:00 97 24 136/67 (90) 93 12/22/19 16:00 Non-Rebreather 12/22/19 16:00 60 12/22/19 16:00 94 12/22/19 16:00 98.2 94 26 136/59 (84) 94 12/22/19 16:00 94 26 136/59 (84) 94 12/22/19 15:00 93 24 145/59 (87) 96 12/22/19 14:00 97 25 154/59 (90) 90 12/22/19 13:00 91 24 134/66 (88) 96 12/22/19 12:03 85 12/22/19 12:00 60 12/22/19 12:00 Non-Rebreather 12/22/19 12:00 98.0 84 38 129/55 (79) 96 Height (Feet): 5 Height (Inches): 7.00 Weight (Pounds): 223 HEENT: mucous membranes moist Respiratory/Chest: decreased breath sounds, other - on BIPAP Cardiovascular: normal rate Abdomen: soft, non tender Extremities: no edema Neurologic/Psychiatric: alert, responsive, disoriented Laboratory Tests Test 12/22/19 22:25 12/23/19 05:20 12/23/19 05:25 12/23/19 07:16 Arterial Blood pH 7.271 (7.350-7.450) 7.371 (7.350-7.450) Arterial Blood Partial Pressure CO2 69.5 mmHg (35.0-45.0) *H 58.1 mmHg (35.0-45.0) *H Arterial Blood Partial Pressure O2 78.4 mmHg (75.0-100.0) 96.7 mmHg (75.0-100.0) Arterial Blood HCO3 31.3 mmol/L (22.0-26.0) H 32.9 mmol/L (22.0-26.0) H Arterial Blood Oxygen Saturation 92.5 % (95-100) L 96.7 % (95-100) Arterial Blood Base Excess 3.1 (-2-2) H 6.4 (-2-2) H Raphael Test Positive Positive White Blood Count 9.1 K/UL (4.8-10.8) Red Blood Count 2.96 M/UL (4.20-5.40) L Hemoglobin 9.5 G/DL (12.0-16.0) L Hematocrit 31.4 % (37.0-47.0) L Mean Corpuscular Volume 106 FL (80-99) H Mean Corpuscular Hemoglobin 32.2 PG (27.0-31.0) H Mean Corpuscular Hemoglobin Concent 30.3 G/DL (32.0-36.0) L Red Cell Distribution Width 13.3 % (11.6-14.8) Platelet Count 184 K/UL (150-450) Mean Platelet Volume 6.7 FL (6.5-10.1) Neutrophils (%) (Auto) % (45.0-75.0) Lymphocytes (%) (Auto) % (20.0-45.0) Monocytes (%) (Auto) % (1.0-10.0) Eosinophils (%) (Auto) % (0.0-3.0) Basophils (%) (Auto) % (0.0-2.0) Differential Total Cells Counted 100 Neutrophils % (Manual) 89 % (45-75) H Lymphocytes % (Manual) 7 % (20-45) L Monocytes % (Manual) 4 % (1-10) Eosinophils % (Manual) 0 % (0-3) Basophils % (Manual) 0 % (0-2) Band Neutrophils 0 % (0-8) Platelet Estimate Adequate Platelet Morphology Normal Hypochromasia 1+ Macrocytosis 1+ Sodium Level 152 MMOL/L (136-145) H Potassium Level 5.0 MMOL/L (3.5-5.1) Chloride Level 112 MMOL/L (98-107) H Carbon Dioxide Level 35 MMOL/L (21-32) H Anion Gap 5 mmol/L (5-15) Blood Urea Nitrogen 32 mg/dL (7-18) H Creatinine 1.0 MG/DL (0.55-1.30) Estimat Glomerular Filtration Rate 53.3 mL/min (>60) Glucose Level 143 MG/DL (74-106) H Calcium Level 8.7 MG/DL (8.5-10.1) POC Whole Blood Glucose 128 MG/DL (74-106) H Current Medications Medications (Trade) Dose Ordered Sig/Angie Route PRN Reason Start Time Stop Time Status Last Admin Dose Admin Acetaminophen (Tylenol) 650 mg Q6H PRN ORAL Mild Pain (Pain Scale 1-3) 12/12/19 12:30 01/11/20 12:29 12/22/19 20:56 Acetaminophen (Tylenol) 1,000 mg Q6H PRN ORAL MODERATE PAIN 12/12/19 12:30 01/11/20 12:29 Amantadine HCl (Symmetrel) 100 mg TWICE A DAY ORAL 12/22/19 18:00 01/11/20 08:59 12/23/19 08:15 Aspirin (ASA) 324 mg DAILY ORAL 12/23/19 09:00 02/04/20 08:59 12/23/19 08:15 Atorvastatin Calcium (Lipitor) 10 mg BEDTIME ORAL 12/22/19 21:00 03/11/20 20:59 12/22/19 20:49 Calcium Carbonate (Os-Octavio) 500 mg THREE TIMES A DAY ORAL 12/22/19 13:00 03/20/20 17:59 12/23/19 08:14 Clonidine HCl (Catapres Tab) 0.1 mg Q6H PRN GT For high BP over 160 systolic 12/15/19 16:30 03/11/20 12:30 Dextrose 1,000 ml @ 50 mls/hr Q20H IV 12/22/19 09:00 01/21/20 08:59 12/23/19 05:30 Dextrose (Dextrose 50%) 25 ml Q30M PRN IV Hypoglycemia 12/13/19 07:15 03/12/20 07:14 Dextrose (Dextrose 50%) 50 ml Q30M PRN IV Hypoglycemia 12/13/19 07:15 03/12/20 07:14 Divalproex Sodium (Depakote) 250 mg EVERY 12 HOURS ORAL 12/22/19 21:00 01/12/20 20:59 12/23/19 08:15 Docusate Sodium (Colace) 100 mg TWICE A DAY ORAL 12/22/19 18:00 01/14/20 17:59 12/23/19 08:15 Fentanyl Citrate 250 ml @ 0 mls/hr Q24H IV 12/18/19 20:53 03/17/20 20:52 12/19/19 20:56 Insulin Aspart (NovoLOG) EVERY 6 HOURS SUBQ 12/13/19 12:00 03/12/20 11:59 12/22/19 23:31 Levothyroxine Sodium (Synthroid) 75 mcg DAILY IV 12/13/19 09:00 01/11/20 09:29 12/23/19 08:16 Methylprednisolone Sodium Succinate (Solu-MEDROL) 20 mg EVERY 6 HOURS IVP 12/22/19 12:00 03/18/20 11:59 12/23/19 05:30 Nitroglycerin (Ntg) 0.4 mg Q5MIN X 3 DOSES PRN SL CHEST PAIN 12/12/19 12:00 01/10/20 21:44 Pantoprazole (Protonix) 40 mg EVERY 12 HOURS IVP 12/14/19 09:00 01/13/20 08:59 12/23/19 08:16 Phosphorus (Phospha 250 Neutral) 250 mg THREE TIMES A DAY ORAL 12/22/19 13:00 01/14/20 08:59 12/23/19 08:15 Piperacillin Sod/ Tazobactam Sod 3.375 gm/Sodium Chloride 110 ml @ 27.5 mls/hr EVERY 8 HOURS IVPB 12/19/19 14:00 12/28/19 13:59 12/23/19 05:31 Polyethylene Glycol (Miralax) 17 gm BEDTIME ORAL 12/22/19 21:00 01/18/20 20:59 12/22/19 20:49 Quetiapine Fumarate (SEROqueL) 50 mg Q12HR ORAL 12/22/19 21:00 02/05/20 20:59 12/23/19 08:15 Lei Chan MD Dec 23, 2019 11:21
--- NOTE | 2019-12-23 12:02 | NUR ---
NURSE NOTES: Patient calm. No distress/SOB noted.
--- NOTE | 2019-12-23 13:06 | Hematology/Onc Progress Note ---
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 ( combination of moderate aortic regurgitation and severe mitral regurgitation) --> diuresis as per cards --> lasix last time # Severe ascending aortic dilatation --> per Dr Keke campbell # Hypertension # Parkinson disease # Hyperlipidemia # Hypothyroidism # Dementia # Obesity # Schizophrenia --> as per Farhadi --> restraints # Dvt ppx lovenox sq/scd's Appreciate product consultant care and alexei Cueva Subjective Allergies: Coded Allergies: LITHIUM (Verified Allergy, Unknown, 02/07/19) All Systems: reviewed and negative except above Subjective / labs are reviewed, intubated, with og, somewhat responsive, alexei rn 7/ labs noted, hgb 7.8, tfs ok to start per gi 12/15 icu, restraints, no acute events, hep panel negative, sedated 12/16 no bleeding, in the icu, on abx, in restarints, sleepy, vent 12/17 is on vent, also is on abx, awake, with ogt 7/8 ng placed, hgb 9.6, no bleeding, no night sweats 12/19 labs reviewed, sedated, on vent, nob leeding, meds reviewed 12/20 remains on vent, audra bleeding, meds reviewed, no night sweats 12/22 hgb 9.5, to get zosyn x 1 more day, no night sweats meds reviewed Objective Objective Current Medications Medications (Trade) Dose Ordered Sig/Angie Route PRN Reason Start Time Stop Time Status Last Admin Dose Admin Acetaminophen (Tylenol) 650 mg Q6H PRN ORAL Mild Pain (Pain Scale 1-3) 12/12/19 12:30 01/11/20 12:29 12/22/19 20:56 Acetaminophen (Tylenol) 1,000 mg Q6H PRN ORAL MODERATE PAIN 12/12/19 12:30 01/11/20 12:29 Amantadine HCl (Symmetrel) 100 mg TWICE A DAY ORAL 12/22/19 18:00 01/11/20 08:59 12/23/19 08:15 Aspirin (ASA) 324 mg DAILY ORAL 12/23/19 09:00 02/04/20 08:59 12/23/19 08:15 Atorvastatin Calcium (Lipitor) 10 mg BEDTIME ORAL 12/22/19 21:00 03/11/20 20:59 12/22/19 20:49 Calcium Carbonate (Os-Octavio) 500 mg THREE TIMES A DAY ORAL 12/22/19 13:00 03/20/20 17:59 12/23/19 08:14 Clonidine HCl (Catapres Tab) 0.1 mg Q6H PRN GT For high BP over 160 systolic 12/15/19 16:30 03/11/20 12:30 Dextrose 1,000 ml @ 50 mls/hr Q20H IV 12/22/19 09:00 01/21/20 08:59 12/23/19 05:30 Dextrose (Dextrose 50%) 25 ml Q30M PRN IV Hypoglycemia 12/13/19 07:15 03/12/20 07:14 Dextrose (Dextrose 50%) 50 ml Q30M PRN IV Hypoglycemia 12/13/19 07:15 03/12/20 07:14 Divalproex Sodium (Depakote) 250 mg EVERY 12 HOURS ORAL 12/22/19 21:00 01/12/20 20:59 12/23/19 08:15 Docusate Sodium (Colace) 100 mg TWICE A DAY ORAL 12/22/19 18:00 01/14/20 17:59 12/23/19 08:15 Fentanyl Citrate 250 ml @ 0 mls/hr Q24H IV 12/18/19 20:53 03/17/20 20:52 12/19/19 20:56 Insulin Aspart (NovoLOG) EVERY 6 HOURS SUBQ 12/13/19 12:00 03/12/20 11:59 12/22/19 23:31 Levothyroxine Sodium (Synthroid) 75 mcg DAILY IV 12/13/19 09:00 01/11/20 09:29 12/23/19 08:16 Methylprednisolone Sodium Succinate (Solu-MEDROL) 20 mg EVERY 6 HOURS IVP 12/22/19 12:00 03/18/20 11:59 12/23/19 11:27 Nitroglycerin (Ntg) 0.4 mg Q5MIN X 3 DOSES PRN SL CHEST PAIN 12/12/19 12:00 01/10/20 21:44 Pantoprazole (Protonix) 40 mg EVERY 12 HOURS IVP 12/14/19 09:00 01/13/20 08:59 12/23/19 08:16 Phosphorus (Phospha 250 Neutral) 250 mg THREE TIMES A DAY ORAL 12/22/19 13:00 01/14/20 08:59 12/23/19 08:15 Piperacillin Sod/ Tazobactam Sod 3.375 gm/Sodium Chloride 110 ml @ 27.5 mls/hr EVERY 8 HOURS IVPB 12/19/19 14:00 12/28/19 13:59 12/23/19 05:31 Polyethylene Glycol (Miralax) 17 gm BEDTIME ORAL 12/22/19 21:00 01/18/20 20:59 12/22/19 20:49 Quetiapine Fumarate (SEROqueL) 50 mg Q12HR ORAL 12/22/19 21:00 02/05/20 20:59 12/23/19 08:15 Last 24 Hour Vital Signs Date Time Temp Pulse Resp B/P (MAP) Pulse Ox O2 Delivery O2 Flow Rate FiO2 12/23/19 12:00 50 12/23/19 11:32 93 28 97 50 12/23/19 11:00 75 23 138/59 (85) 96 12/23/19 10:00 77 24 145/52 (83) 100 12/23/19 09:00 79 23 140/53 (82) 100 12/23/19 08:45 50 12/23/19 08:00 97.2 78 26 149/60 (89) 97 12/23/19 08:00 Bi-pap 12/23/19 07:35 40 12/23/19 07:32 40 12/23/19 07:16 86 24 100 60 12/23/19 07:00 74 22 138/62 (87) 100 12/23/19 06:00 74 21 140/50 (80) 100 12/23/19 05:00 76 22 139/55 (83) 99 12/23/19 04:01 75 12/23/19 04:00 97.7 76 22 130/52 (78) 99 12/23/19 04:00 Bi-pap 12/23/19 04:00 60 12/23/19 03:03 75 21 100 60 12/23/19 03:00 76 24 137/63 (87) 98 12/23/19 02:00 74 22 131/54 (79) 99 12/23/19 01:00 83 25 142/57 (85) 99 12/23/19 00:00 Bi-pap 12/23/19 00:00 97.8 85 24 138/52 (80) 98 12/23/19 00:00 60 12/22/19 23:08 77 12/22/19 23:00 78 24 132/52 (78) 98 12/22/19 22:46 83 23 137/57 (83) 98 12/22/19 22:40 83 22 98 60 12/22/19 22:00 84 25 118/50 (72) 93 12/22/19 21:00 94 26 146/63 (90) 98 12/22/19 20:53 27 130/56 Venturi Mask 60 12/22/19 20:00 98.5 93 29 144/74 (97) 97 12/22/19 20:00 60 12/22/19 20:00 Venturi Mask 12/22/19 19:34 97 12/22/19 19:00 97 26 127/53 (77) 86 12/22/19 18:50 98 Cool Aerosol 10.0 60 12/22/19 18:00 93 26 133/80 (97) 85 12/22/19 17:00 97 24 136/67 (90) 93 12/22/19 16:00 Non-Rebreather 12/22/19 16:00 60 12/22/19 16:00 94 12/22/19 16:00 98.2 94 26 136/59 (84) 94 12/22/19 16:00 94 26 136/59 (84) 94 12/22/19 15:00 93 24 145/59 (87) 96 12/22/19 14:00 97 25 154/59 (90) 90 12/22/19 13:00 91 24 134/66 (88) 96 12/22/19 12:03 85 12/22/19 12:00 60 12/22/19 12:00 Non-Rebreather 12/22/19 12:00 98.0 84 38 129/55 (79) 96 12/22/19 11:00 93 23 133/56 (81) 96 12/22/19 10:00 89 26 118/96 (103) 90 12/22/19 09:30 89 25 103/57 (72) 92 12/22/19 09:00 95 44 136/67 (90) 94 12/22/19 09:00 60 12/22/19 08:00 97 12/22/19 08:00 40 12/22/19 08:00 98.3 104 25 161/70 (100) 93 12/22/19 08:00 Non-Rebreather 12/22/19 07:30 96 Cool Aerosol 10.0 40 12/22/19 07:00 87 40 136/58 (84) 92 12/22/19 06:30 103 21 139/91 (107) 84 12/22/19 06:00 93 28 145/73 (97) 94 12/22/19 05:30 92 26 143/63 (89) 96 12/22/19 05:00 96 27 153/68 (96) 96 12/22/19 04:30 95 26 143/70 (94) 98 12/22/19 04:00 40 12/22/19 04:00 Mechanical Ventilator 12/22/19 04:00 103 27 129/55 (79) 93 12/22/19 03:49 110 12/22/19 03:30 87 23 125/54 (77) 96 12/22/19 03:00 85 31 126/53 (77) 94 12/22/19 02:30 99 25 98/80 (86) 94 12/22/19 02:00 88 29 126/58 (80) 100 12/22/19 01:30 87 26 132/59 (83) 97 12/22/19 01:00 86 31 126/64 (84) 92 12/22/19 00:30 91 26 132/68 (89) 98 12/22/19 00:00 Mechanical Ventilator 12/22/19 00:00 4.0 12/22/19 00:00 99.3 92 22 130/58 (82) 99 12/21/19 23:41 88 12/21/19 23:30 98 23 123/60 (81) 97 12/21/19 23:00 92 29 129/59 (82) 87 12/21/19 22:30 101 31 141/65 (90) 99 12/21/19 22:00 89 22 127/61 (83) 98 12/21/19 21:30 87 22 121/55 (77) 94 12/21/19 21:00 94 24 134/61 (85) 95 12/21/19 20:00 4.0 12/21/19 20:00 Mechanical Ventilator 12/21/19 20:00 98.4 91 21 125/59 (81) 95 12/21/19 19:30 101 25 135/65 (88) 97 12/21/19 19:15 88 12/21/19 19:08 97 Nasal Cannula 4.0 36 12/21/19 19:00 95 22 119/72 (88) 98 12/21/19 18:00 103 19 119/59 (79) 88 12/21/19 17:00 95 24 127/57 (80) 95 12/21/19 16:00 98.4 91 29 121/61 (81) 96 12/21/19 16:00 93 12/21/19 16:00 Mechanical Ventilator 12/21/19 15:00 93 28 129/57 (81) 99 12/21/19 14:00 92 22 125/51 (75) 100 Intake and Output 12/22/19 12/23/19 19:00 07:00 Intake Total 895.26 ml 801.0 ml Output Total 650 ml 610 ml Balance 245.26 ml 191.0 ml Intake Oral 300 ml IV Total 595.26 ml 751.0 ml Tube Feeding 0 ml 0 ml Other 50 ml Output Urine Total 650 ml 610 ml Labs Test 12/20/19 23:20 12/21/19 11:32 12/21/19 11:46 12/21/19 17:06 POC Whole Blood Glucose 160 MG/DL (74-106) 133 MG/DL (74-106) Arterial Blood pH 7.420 (7.350-7.450) Arterial Blood Partial Pressure CO2 52.9 mmHg (35.0-45.0) Arterial Blood Partial Pressure O2 94.7 mmHg (75.0-100.0) Arterial Blood HCO3 33.5 mmol/L (22.0-26.0) Arterial Blood Oxygen Saturation 96.8 % (95-100) Arterial Blood Base Excess 7.9 (-2-2) Raphael Test Positive Test 12/21/19 23:27 12/22/19 04:45 12/22/19 22:25 12/23/19 05:20 White Blood Count 10.8 K/UL (4.8-10.8) 9.1 K/UL (4.8-10.8) Red Blood Count 2.97 M/UL (4.20-5.40) 2.96 M/UL (4.20-5.40) Hemoglobin 9.7 G/DL (12.0-16.0) 9.5 G/DL (12.0-16.0) Hematocrit 31.7 % (37.0-47.0) 31.4 % (37.0-47.0) Mean Corpuscular Volume 107 FL (80-99) 106 FL (80-99) Mean Corpuscular Hemoglobin 32.5 PG (27.0-31.0) 32.2 PG (27.0-31.0) Mean Corpuscular Hemoglobin Concent 30.5 G/DL (32.0-36.0) 30.3 G/DL (32.0-36.0) Red Cell Distribution Width 13.4 % (11.6-14.8) 13.3 % (11.6-14.8) Platelet Count 202 K/UL (150-450) 184 K/UL (150-450) Mean Platelet Volume 7.0 FL (6.5-10.1) 6.7 FL (6.5-10.1) Neutrophils (%) (Auto) % (45.0-75.0) % (45.0-75.0) Lymphocytes (%) (Auto) % (20.0-45.0) % (20.0-45.0) Monocytes (%) (Auto) % (1.0-10.0) % (1.0-10.0) Eosinophils (%) (Auto) % (0.0-3.0) % (0.0-3.0) Basophils (%) (Auto) % (0.0-2.0) % (0.0-2.0) Sodium Level 153 MMOL/L (136-145) 152 MMOL/L (136-145) Potassium Level 4.4 MMOL/L (3.5-5.1) 5.0 MMOL/L (3.5-5.1) Chloride Level 113 MMOL/L (98-107) 112 MMOL/L (98-107) Carbon Dioxide Level 34 MMOL/L (21-32) 35 MMOL/L (21-32) Anion Gap 7 mmol/L (5-15) 5 mmol/L (5-15) Blood Urea Nitrogen 31 mg/dL (7-18) 32 mg/dL (7-18) Creatinine 1.0 MG/DL (0.55-1.30) 1.0 MG/DL (0.55-1.30) Estimat Glomerular Filtration Rate 53.3 mL/min (>60) 53.3 mL/min (>60) Glucose Level 151 MG/DL (74-106) 143 MG/DL (74-106) Calcium Level 8.6 MG/DL (8.5-10.1) 8.7 MG/DL (8.5-10.1) Phosphorus Level 3.3 MG/DL (2.5-4.9) Magnesium Level 1.7 MG/DL (1.8-2.4) Total Bilirubin 0.5 MG/DL (0.2-1.0) Aspartate Amino Transf (AST/SGOT) 5 U/L (15-37) Alanine Aminotransferase (ALT/SGPT) 24 U/L (12-78) Alkaline Phosphatase 36 U/L (46-116) Total Protein 6.9 G/DL (6.4-8.2) Albumin 3.4 G/DL (3.4-5.0) Globulin 3.5 g/dL Albumin/Globulin Ratio 1.0 (1.0-2.7) Arterial Blood pH 7.271 (7.350-7.450) Arterial Blood Partial Pressure CO2 69.5 mmHg (35.0-45.0) Arterial Blood Partial Pressure O2 78.4 mmHg (75.0-100.0) Arterial Blood HCO3 31.3 mmol/L (22.0-26.0) Arterial Blood Oxygen Saturation 92.5 % (95-100) Arterial Blood Base Excess 3.1 (-2-2) Raphael Test Positive Differential Total Cells Counted 100 Neutrophils % (Manual) 89 % (45-75) Lymphocytes % (Manual) 7 % (20-45) Monocytes % (Manual) 4 % (1-10) Eosinophils % (Manual) 0 % (0-3) Basophils % (Manual) 0 % (0-2) Band Neutrophils 0 % (0-8) Platelet Estimate Adequate Platelet Morphology Normal Hypochromasia 1+ Macrocytosis 1+ Test 12/23/19 05:25 12/23/19 07:16 POC Whole Blood Glucose 128 MG/DL (74-106) Arterial Blood pH 7.371 (7.350-7.450) Arterial Blood Partial Pressure CO2 58.1 mmHg (35.0-45.0) Arterial Blood Partial Pressure O2 96.7 mmHg (75.0-100.0) Arterial Blood HCO3 32.9 mmol/L (22.0-26.0) Arterial Blood Oxygen Saturation 96.7 % (95-100) Arterial Blood Base Excess 6.4 (-2-2) Raphael Test Positive Height (Feet): 5 Height (Inches): 7.00 Weight (Pounds): 223 Objective Vitals: reviewed General: NAD HEENT: nc, at ++ogt Neck: supple ++intubated Chest: decreased breath sounds bilaterally Cardiovascular: RRR, no s3, s4 Abdomen: soft, nontender, nd Extremities: 1-2 + edema, scd's Neuro: nonverbal : restraints Frank Escobar MD Dec 23, 2019 13:06
--- NOTE | 2019-12-23 13:29 | Nephrology Progress Note ---
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 Respiratory distress most likely secondary to pulmonary edema and or COPD exacerbation. Hyponatremia. Obese. Hypothyroidism. Elevated d-dimer. Elevated liver enzymes Plan December 22: Lab reviewed. On BiPAP. Stable from renal standpoint of view. Will follow serum sodium. December 21: Labs reviewed. On nonrebreather mask. D5W 50 cc an hour started for hypernatremia. Magnesium supplement given. Continue per consultants. December 20: Patient on weaning trial. No labs done today. Discussed with RN. Continue per consultants. December 19: Patient remains intubated. Renal parameters stable. Discussed with RN. Continue per consultants. December 18: Patient self extubated yesterday however was reintubated. Remains stable from renal standpoint of view. Discussed with RN. Discussed with Dr. Myers. December 17: Remains intubated. Remains full code. Failed weaning. Stable from renal standpoint of view. Continue per consultants. Discussed with DARREL Monten[place]. December 16: Remains intubated. Full code. Weaning in process. Stable from renal standpoint of view. December 15: Remains vented. Electrolytes improved. Continue per consultants. December 14: Patient remains in ICU intubated on ventilator. Potassium low. Phosphorus low. Supplements given. Renal parameters are stable. Continue per consultants. December 13: Patient remains in ICU intubated on ventilator. Discussed with RN. Labs reviewed. Creatinine 1.3. Potassium supplements given. Mag sulfate IV 2 g given. Continue per consultants. December 12: Patient in ICU. Intubated on ventilator. Discussed with RN. Labs reviewed. Potassium supplement given. Continue per consultants. Arterial blood gas indicative of CO2 retention. Patient on the way to ICU for intubation. Continue per pulmonary management. Pulmonary support, Check 2D echocardiogram. Previous 2D echo had a 50% ejection fraction. Keep blood sugar and blood pressure in check. Thyroid panel. Monitor electrolytes and renal parameters. Afterload reduction. Diuretics Monitor serum calcium, supplements via NG tube. Per orders. Subjective ROS Limited/Unobtainable: Yes Objective Objective Last 24 Hour Vital Signs Date Time Temp Pulse Resp B/P (MAP) Pulse Ox O2 Delivery O2 Flow Rate FiO2 12/23/19 12:00 50 12/23/19 11:32 93 28 97 50 12/23/19 11:00 75 23 138/59 (85) 96 12/23/19 10:00 77 24 145/52 (83) 100 12/23/19 09:00 79 23 140/53 (82) 100 12/23/19 08:45 50 12/23/19 08:00 97.2 78 26 149/60 (89) 97 12/23/19 08:00 Bi-pap 12/23/19 07:35 40 12/23/19 07:32 40 12/23/19 07:16 86 24 100 60 12/23/19 07:00 74 22 138/62 (87) 100 12/23/19 06:00 74 21 140/50 (80) 100 12/23/19 05:00 76 22 139/55 (83) 99 12/23/19 04:01 75 12/23/19 04:00 97.7 76 22 130/52 (78) 99 12/23/19 04:00 Bi-pap 12/23/19 04:00 60 12/23/19 03:03 75 21 100 60 12/23/19 03:00 76 24 137/63 (87) 98 12/23/19 02:00 74 22 131/54 (79) 99 12/23/19 01:00 83 25 142/57 (85) 99 12/23/19 00:00 Bi-pap 12/23/19 00:00 97.8 85 24 138/52 (80) 98 12/23/19 00:00 60 12/22/19 23:08 77 12/22/19 23:00 78 24 132/52 (78) 98 12/22/19 22:46 83 23 137/57 (83) 98 12/22/19 22:40 83 22 98 60 12/22/19 22:00 84 25 118/50 (72) 93 12/22/19 21:00 94 26 146/63 (90) 98 12/22/19 20:53 27 130/56 Venturi Mask 60 12/22/19 20:00 98.5 93 29 144/74 (97) 97 12/22/19 20:00 60 12/22/19 20:00 Venturi Mask 12/22/19 19:34 97 12/22/19 19:00 97 26 127/53 (77) 86 12/22/19 18:50 98 Cool Aerosol 10.0 60 12/22/19 18:00 93 26 133/80 (97) 85 12/22/19 17:00 97 24 136/67 (90) 93 12/22/19 16:00 Non-Rebreather 12/22/19 16:00 60 12/22/19 16:00 94 12/22/19 16:00 98.2 94 26 136/59 (84) 94 12/22/19 16:00 94 26 136/59 (84) 94 12/22/19 15:00 93 24 145/59 (87) 96 12/22/19 14:00 97 25 154/59 (90) 90 Intake and Output 12/22/19 12/23/19 19:00 07:00 Intake Total 895.26 ml 801.0 ml Output Total 650 ml 610 ml Balance 245.26 ml 191.0 ml Intake Oral 300 ml IV Total 595.26 ml 751.0 ml Tube Feeding 0 ml 0 ml Other 50 ml Output Urine Total 650 ml 610 ml Laboratory Tests 12/22/19 22:25: Arterial Blood pH 7.271L, Arterial Blood Partial Pressure CO2 69.5*H, Arterial Blood Partial Pressure O2 78.4, Arterial Blood HCO3 31.3H, Arterial Blood Oxygen Saturation 92.5L, Arterial Blood Base Excess 3.1H, Raphael Test Positive 12/23/19 05:20: White Blood Count 9.1, Red Blood Count 2.96L, Hemoglobin 9.5L, Hematocrit 31.4L , Mean Corpuscular Volume 106H, Mean Corpuscular Hemoglobin 32.2H, Mean Corpuscular Hemoglobin Concent 30.3L, Red Cell Distribution Width 13.3, Platelet Count 184, Mean Platelet Volume 6.7, Neutrophils (%) (Auto) , Lymphocytes (%) (Auto) , Monocytes (%) (Auto) , Eosinophils (%) (Auto) , Basophils (%) (Auto) , Differential Total Cells Counted 100, Neutrophils % ( Manual) 89H, Lymphocytes % (Manual) 7L, Monocytes % (Manual) 4, Eosinophils % ( Manual) 0, Basophils % (Manual) 0, Band Neutrophils 0, Platelet Estimate Adequate, Platelet Morphology Normal, Hypochromasia 1+, Macrocytosis 1+, Sodium Level 152H, Potassium Level 5.0, Chloride Level 112H, Carbon Dioxide Level 35H, Anion Gap 5, Blood Urea Nitrogen 32H, Creatinine 1.0, Estimat Glomerular Filtration Rate 53.3, Glucose Level 143H, Calcium Level 8.7 12/23/19 05:25: POC Whole Blood Glucose 128H 12/23/19 07:16: Arterial Blood pH 7.371, Arterial Blood Partial Pressure CO2 58.1*H, Arterial Blood Partial Pressure O2 96.7, Arterial Blood HCO3 32.9H, Arterial Blood Oxygen Saturation 96.7, Arterial Blood Base Excess 6.4H, Raphael Test Positive Height (Feet): 5 Height (Inches): 7.00 Weight (Pounds): 223 General Appearance: mild distress EENT: other - On BiPAP Cardiovascular: other - Variable rate Respiratory/Chest: decreased breath sounds Abdomen: distended Bryan Ochoa MD Dec 23, 2019 13:29
--- NOTE | 2019-12-23 14:14 | NUR ---
NURSE NOTES: Patient is restless. Repositioned patient. Reassured and reoriented patient.
--- NOTE | 2019-12-23 16:11 | NUR ---
NURSE NOTES: Patient is still on bipap 18/6 with FiO2 50%. O2 sat 95% on the monitor. Will continue plan fo care.
--- NOTE | 2019-12-23 18:02 | NUR ---
NURSE NOTES: Bed bath given. Kept dry, clean and comfortable.
--- NOTE | 2019-12-23 19:19 | NUR ---
HAND-OFF: Report given to DARREL Estrada. Endorsed plan of care.
--- NOTE | 2019-12-23 19:30 | NUR ---
NURSE NOTES: Received report from Deejay ROJO
--- NOTE | 2019-12-23 20:00 | NUR ---
NURSE NOTES: Patient in bed awake,alert to name with confusion and disorientation noted. Patient is restless with episode of trying to slide down from bed, trying to pull out Bipap and tubing, reality orientation provided, encouraged patient to verbalize needs,fears and feelings to staff patient just nod her head. No complains discomfort/pain at this time. On bipap 18/6 with FiO2 50%. O2 sat 99% on the monitor. Ace intact and draining with yellow color urine. Left forearm 22G IV and Left Hand 22G IV intact and running with D5W @ 50ml/hr. Kept dry, clean, comfortable and HOB>30. call light within easy reach. bilateral soft wrist restraint checked. bed alarm on. bed lock and in low position. contact isolation maintained and observed.
[2019-12-23] MEDS: Miralax 17gm pkt ORAL SCH (20:20)
[2019-12-23] MEDS: fentaNYL 2500mcg/NS 250ml 250 ML IV SCH (20:53)
--- NOTE | 2019-12-23 22:00 | NUR ---
NURSE NOTES: patient teaching provided regarding bilateral non violent wrist restraint, patient agreed that she will not remove the bipap. MD aware with new order D/C restraint. will monitor patient.
[2019-12-24] VITALS (26 sets, daily range): BP systolic 114–159; BP diastolic 42–100
--- NOTE | 2019-12-24 | NUR ---
NURSE NOTES: Patient in bed sleeping comfortably. no s/s of acute distress noted. no fever. n/v. HOB elevated. On BIPAP. Call light within easy reach. On P200 mattress for wound management. Bed alarm on. bed locked and in low position. Fall precaution and contact isolation maintained and observed.
[2019-12-24] MEDS: Solu-MEDROL 40mg Inj IVP SCH ×4 (00:08→17:17)
--- NOTE | 2019-12-24 02:00 | NUR ---
NURSE NOTES: Patient with episodes of restlessness pulling out tubing and bipap patient teaching provided, encouraged patient to verbalize needs, fears and feelings to staff but not effective. MD aware with order for Bilateral soft wrist restraint. will continue to monitor.
--- NOTE | 2019-12-24 04:00 | NUR ---
NURSE NOTES: Bed bath given tolerated well.
[2019-12-24] MEDS: Piperacillin/Tazobactam 3.375 GM in NS 110 ML IVPB SCH ×3 (05:09→21:38)
[2019-12-24] MEDS: NovoLOG Insulin Flexpen SUBQ SCH ×4 (05:15→17:26)
--- NOTE | 2019-12-24 05:58 | NUR ---
NURSE NOTES: patient in bed sleeping comfortably. no fever. no n/v. call light within easy reach. oral care provided. Continue on BIPAP 28/11 fi02 50% satting 100%. HOB elevated. will continue plan of care.
--- NOTE | 2019-12-24 06:30 | NUR ---
NURSE NOTES: seen nad examined by Dr. Guadalupe no new order.
--- NOTE | 2019-12-24 06:49 | General Progress Note ---
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 - Other specified diabetes mellitus without complications SNOMED: 761926305 (2) Parkinson disease ICD Codes: G20 - Parkinson's disease SNOMED: 88939793 (3) Schizophrenia ICD Codes: F20.9 - Schizophrenia, unspecified SNOMED: 98448167 (4) Hypertension ICD Codes: I10 - Essential (primary) hypertension SNOMED: 27470948 (5) Respiratory failure ICD Codes: J96.90 - Respiratory failure, unspecified, unspecified whether with hypoxia or hypercapnia SNOMED: 829725109 (6) Hypothyroidism ICD Codes: E03.9 - Hypothyroidism, unspecified SNOMED: 79943442 Status: unchanged Assessment/Plan: continue Levothyroxine 75 mcg IV daily continue Novolog sliding scale every 6 hours hypoglycemia protocol in order Subjective ROS Limited/Unobtainable: Yes Allergies: Coded Allergies: LITHIUM (Verified Allergy, Unknown, 02/07/19) Subjective events noted in ICU on BiPAP Item Value Date Time Bedside Blood Glucose 159 mg/dl H 12/24/19 0515 Bedside Blood Glucose 122 mg/dl H 12/24/19 0000 Bedside Blood Glucose 156 mg/dl H 12/23/19 1800 Bedside Blood Glucose 136 mg/dl H 12/23/19 1200 Bedside Blood Glucose 128 mg/dl H 12/23/19 0532 Bedside Blood Glucose 147 mg/dl H 12/22/19 2331 Objective Last 24 Hour Vital Signs Date Time Temp Pulse Resp B/P (MAP) Pulse Ox O2 Delivery O2 Flow Rate FiO2 12/24/19 06:00 77 26 138/62 (87) 99 12/24/19 05:00 80 25 159/71 (100) 99 12/24/19 04:00 98.0 79 24 149/66 (93) 99 12/24/19 04:00 87 12/24/19 04:00 50 12/24/19 04:00 Bi-pap 12/24/19 03:30 78 16 97 50 12/24/19 03:00 80 26 144/64 (90) 99 12/24/19 02:00 86 23 130/100 (110) 97 12/24/19 01:47 167/66 12/24/19 01:00 82 32 158/69 (98) 98 7/13/20 00:30 85 34 158/70 (99) 97 12/24/19 00:00 Bi-pap 12/24/19 00:00 98.5 82 34 149/68 (95) 97 12/24/19 00:00 85 12/24/19 00:00 50 12/23/19 23:30 91 27 98 50 12/23/19 23:00 81 25 139/67 (91) 98 12/23/19 22:30 83 23 155/68 (97) 98 12/23/19 22:00 85 26 158/80 (106) 98 12/23/19 21:30 81 29 149/71 (97) 97 12/23/19 21:00 78 25 136/56 (82) 98 12/23/19 20:00 81 12/23/19 20:00 Bi-pap 12/23/19 20:00 50 12/23/19 20:00 98.0 88 23 153/73 (99) 98 12/23/19 19:30 86 29 99 50 12/23/19 19:00 79 24 140/59 (86) 100 12/23/19 18:00 95 28 131/104 (113) 97 12/23/19 17:00 80 25 141/57 (85) 100 12/23/19 16:00 74 12/23/19 16:00 Bi-pap 12/23/19 16:00 50 12/23/19 16:00 97.6 84 27 151/66 (94) 99 12/23/19 15:30 88 26 99 50 12/23/19 15:00 85 26 151/64 (93) 100 12/23/19 14:00 92 28 158/65 (96) 99 12/23/19 13:00 79 28 135/51 (79) 100 12/23/19 12:00 50 12/23/19 12:00 Bi-pap 12/23/19 12:00 97.4 88 27 134/114 (121) 100 12/23/19 12:00 92 12/23/19 11:32 93 28 97 50 12/23/19 11:00 75 23 138/59 (85) 96 12/23/19 10:00 77 24 145/52 (83) 100 12/23/19 09:00 79 23 140/53 (82) 100 12/23/19 08:45 50 12/23/19 08:00 97.2 78 26 149/60 (89) 97 12/23/19 08:00 Bi-pap 12/23/19 08:00 89 12/23/19 07:35 40 12/23/19 07:32 40 12/23/19 07:16 86 24 100 60 12/23/19 07:00 74 22 138/62 (87) 100 Intake and Output 12/23/19 12/24/19 19:00 07:00 Intake Total 569.0 ml 685.5 ml Output Total 820 ml 915 ml Balance -251.0 ml -229.5 ml Intake Oral 300 ml IV Total 269.0 ml 685.5 ml Tube Feeding 0 ml 0 ml Output Urine Total 820 ml 915 ml Laboratory Tests 12/23/19 07:16: Arterial Blood pH 7.371, Arterial Blood Partial Pressure CO2 58.1*H, Arterial Blood Partial Pressure O2 96.7, Arterial Blood HCO3 32.9H, Arterial Blood Oxygen Saturation 96.7, Arterial Blood Base Excess 6.4H, Raphael Test Positive 12/24/19 05:55: White Blood Count [Pending], Red Blood Count [Pending], Hemoglobin [Pending], Hematocrit [Pending], Mean Corpuscular Volume [Pending], Mean Corpuscular Hemoglobin [Pending], Mean Corpuscular Hemoglobin Concent [Pending], Red Cell Distribution Width [Pending], Platelet Count [Pending], Mean Platelet Volume [ Pending], Neutrophils (%) (Auto) [Pending], Lymphocytes (%) (Auto) [Pending], Monocytes (%) (Auto) [Pending], Eosinophils (%) (Auto) [Pending], Basophils (%) (Auto) [Pending], Sodium Level [Pending], Potassium Level [Pending], Chloride Level [Pending], Carbon Dioxide Level [Pending], Blood Urea Nitrogen [Pending], Creatinine [Pending], Estimat Glomerular Filtration Rate [Pending], Glucose Level [Pending], Uric Acid [Pending], Calcium Level [Pending], Phosphorus Level [Pending], Magnesium Level [Pending], Total Bilirubin [Pending], Aspartate Amino Transf (AST/SGOT) [Pending], Alanine Aminotransferase (ALT/SGPT) [Pending] , Alkaline Phosphatase [Pending], Total Protein [Pending], Albumin [Pending], Globulin [Pending] Height (Feet): 5 Height (Inches): 7.00 Weight (Pounds): 226 General Appearance: moderate distress Neck: normal alignment Cardiovascular: tachycardia Respiratory/Chest: decreased breath sounds Abdomen: normal bowel sounds Pelvis: normal external exam Objective Current Medications Medications (Trade) Dose Ordered Sig/Angie Route PRN Reason Start Time Stop Time Status Last Admin Dose Admin Acetaminophen (Tylenol) 650 mg Q6H PRN ORAL Mild Pain (Pain Scale 1-3) 12/12/19 12:30 01/11/20 12:29 12/22/19 20:56 Acetaminophen (Tylenol) 1,000 mg Q6H PRN ORAL MODERATE PAIN 12/12/19 12:30 01/11/20 12:29 Amantadine HCl (Symmetrel) 100 mg TWICE A DAY ORAL 12/22/19 18:00 01/11/20 08:59 12/23/19 17:56 Aspirin (ASA) 324 mg DAILY ORAL 12/23/19 09:00 02/04/20 08:59 12/23/19 08:15 Atorvastatin Calcium (Lipitor) 10 mg BEDTIME ORAL 12/22/19 21:00 03/11/20 20:59 12/23/19 20:19 Calcium Carbonate (Os-Octavio) 500 mg THREE TIMES A DAY ORAL 12/22/19 13:00 03/20/20 17:59 12/23/19 17:56 Clonidine HCl (Catapres Tab) 0.1 mg Q6H PRN GT For high BP over 160 systolic 12/15/19 16:30 03/11/20 12:30 12/24/19 01:47 Dextrose 1,000 ml @ 50 mls/hr Q20H IV 12/22/19 09:00 01/21/20 08:59 12/24/19 00:09 Dextrose (Dextrose 50%) 25 ml Q30M PRN IV Hypoglycemia 12/13/19 07:15 03/12/20 07:14 Dextrose (Dextrose 50%) 50 ml Q30M PRN IV Hypoglycemia 12/13/19 07:15 03/12/20 07:14 Divalproex Sodium (Depakote) 250 mg EVERY 12 HOURS ORAL 12/22/19 21:00 01/12/20 20:59 12/23/19 20:20 Docusate Sodium (Colace) 100 mg TWICE A DAY ORAL 12/22/19 18:00 01/14/20 17:59 12/23/19 17:56 Fentanyl Citrate 250 ml @ 0 mls/hr Q24H IV 12/18/19 20:53 03/17/20 20:52 12/19/19 20:56 Insulin Aspart (NovoLOG) EVERY 6 HOURS SUBQ 12/13/19 12:00 03/12/20 11:59 12/24/19 05:15 Levothyroxine Sodium (Synthroid) 75 mcg DAILY IV 12/13/19 09:00 01/11/20 09:29 12/23/19 08:16 Methylprednisolone Sodium Succinate (Solu-MEDROL) 20 mg EVERY 6 HOURS IVP 12/22/19 12:00 03/18/20 11:59 12/24/19 05:09 Nitroglycerin (Ntg) 0.4 mg Q5MIN X 3 DOSES PRN SL CHEST PAIN 12/12/19 12:00 01/10/20 21:44 Pantoprazole (Protonix) 40 mg EVERY 12 HOURS IVP 12/14/19 09:00 01/13/20 08:59 12/23/19 20:20 Phosphorus (Phospha 250 Neutral) 250 mg THREE TIMES A DAY ORAL 12/22/19 13:00 01/14/20 08:59 12/23/19 17:56 Piperacillin Sod/ Tazobactam Sod 3.375 gm/Sodium Chloride 110 ml @ 27.5 mls/hr EVERY 8 HOURS IVPB 12/19/19 14:00 12/28/19 13:59 12/24/19 05:09 Polyethylene Glycol (Miralax) 17 gm BEDTIME ORAL 12/22/19 21:00 01/18/20 20:59 12/22/19 20:49 Quetiapine Fumarate (SEROqueL) 50 mg Q12HR ORAL 12/22/19 21:00 02/05/20 20:59 12/23/19 20:20 Jabari Adams MD Dec 24, 2019 06:49
[2019-12-24 07:00] LABS: BASOPHILS % (AUTO) 0.3 % (0.0-2.0); EOSINOPHILS % (AUTO) 0.1 % (0.0-3.0); HEMATOCRIT 30.8 % (37.0-47.0); HEMOGLOBIN 9.5 G/DL (12.0-16.0); LYMPHOCYTES % (AUTO) 12.1 % (20.0-45.0); MEAN CORPUSCULAR VOLUME 104 FL (80-99); MONOCYTES % (AUTO) 5.1 % (1.0-10.0); NEUTROPHILS % (AUTO) 82.4 % (45.0-75.0); PLATELET COUNT 181 K/UL (150-450); RED BLOOD COUNT 2.95 M/UL (4.20-5.40); RED CELL DISTRIBUTION WIDTH 13.3 % (11.6-14.8); WHITE BLOOD COUNT 8.3 K/UL (4.8-10.8)
[2019-12-24 07:13] LABS: ALANINE AMINOTRANSFERASE 34 U/L (12-78); ALBUMIN 2.9 G/DL (3.4-5.0); ALBUMIN/GLOBULIN RATIO 0.9 (1.0-2.7); ALKALINE PHOSPHATASE 32 U/L (46-116); ANION GAP 2 mmol/L (5-15); ASPARTATE AMINO TRANSFERASE 20 U/L (15-37); BILIRUBIN,TOTAL 0.7 MG/DL (0.2-1.0); BLOOD UREA NITROGEN 31 mg/dL (7-18); CALCIUM 8.7 MG/DL (8.5-10.1); CARBON DIOXIDE 37 MMOL/L (21-32); CHLORIDE 107 MMOL/L (98-107); CREATININE 0.9 MG/DL (0.55-1.30); PHOSPHORUS 3.3 MG/DL (2.5-4.9); POTASSIUM 4.5 MMOL/L (3.5-5.1); SODIUM 146 MMOL/L (136-145)
--- NOTE | 2019-12-24 07:21 | NUR ---
HAND-OFF: Report given to Cici ROJO.
--- NOTE | 2019-12-24 07:25 | NUR ---
NURSE NOTES: Received report from DARREL Estrada. Observed patient in bed, alert, awake, oriented to name and appears to be restless. Patient is on Bipap 18/6 with FiO2 50%, patient is saturating 95% at this time. RT Angelic at bedside to replaced Bipap mask to a smaller one. air sampling and monitoring shows SR with PVC's. Bilateral radial, brachial, and dorsalis pedis pulses are strong and palpable. Patient remains NPO at this time per MD order. Patient has a left FA 22g with IV fluids D5W infusing at 50ml/hr and left hand 22g saline locked. Bilateral soft wrist restraints in place. Patient has a Ace catheter, patent, draining clear yellow urine output to gravity. Patient is clean and dry at this time, all needs attended to. Safety precautions in place; bed is locked, alarmed, and in lowest position, side rails up x3, and call light left within reach. Will continue to monitor and will continue plan of care.
--- NOTE | 2019-12-24 08:10 | NUR ---
NURSE NOTES: Dr Ochoa at bedside, seen and assessed patient; ordered ABG today. Will enter order and will carry out; RT Angelic notified and made aware.
--- NOTE | 2019-12-24 08:19 | NUR ---
NURSE NOTES: Scheduled medications given; 5ml gastric residual noted at this time. Patient attempts to open eyes to painful stimuli. Patient is afebrile. Oral care provided, suctioned via ETT with red, thick sputum noted. Repositioned. Will continue to monitor. Addendum: 12/24/19 at 0822 by Cici Davis RN Please disregard documentation above; entered in wrong chart.
[2019-12-24] MEDS: Amantadine 100mg cap ORAL SCH ×2 (08:40→17:17)
[2019-12-24] MEDS: Pantoprazole Inj IVP SCH ×2 (08:40→20:50)
[2019-12-24] MEDS: Docusate 100mg cap ORAL SCH ×2 (08:40→17:17)
[2019-12-24] MEDS: Phospha 250 Neutral tab ORAL SCH ×3 (08:41→17:17)
[2019-12-24] MEDS: Os-Cal (Oyster Shell) 500mg tab ORAL SCH ×3 (08:41→17:17)
[2019-12-24] MEDS: Aspirin Baby 81mg ORAL SCH (08:41)
--- NOTE | 2019-12-24 08:47 | NUR ---
NURSE NOTES: Scheduled medications given to patient, crushed and mixed in apple sauce. Patient was able to tolerated, no coughing or difficulty swallowing noted, thickened water provided; however, SpO2 dropped to 85%. Placed patient back to BiPAP after giving oral medications. Patient is saturating 100% at this time. Will continue to monitor.
[2019-12-24] MEDS ORDERED: Tubing IV Secondary IV ONE (09:01)
[2019-12-24] MEDS ORDERED: NS 275ml ONE (09:01)
--- NOTE | 2019-12-24 09:35 | Nephrology Progress Note ---
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 Respiratory distress most likely secondary to pulmonary edema and or COPD exacerbation. Hyponatremia. Obese. Hypothyroidism. Elevated d-dimer. Elevated liver enzymes Plan December 23: Lab reviewed. Remains on BiPAP. Agitated at times. ABG ordered. Serum sodium improved. December 22: Lab reviewed. On BiPAP. Stable from renal standpoint of view. Will follow serum sodium. December 21: Labs reviewed. On nonrebreather mask. D5W 50 cc an hour started for hypernatremia. Magnesium supplement given. Continue per consultants. December 20: Patient on weaning trial. No labs done today. Discussed with RN. Continue per consultants. December 19: Patient remains intubated. Renal parameters stable. Discussed with RN. Continue per consultants. December 18: Patient self extubated yesterday however was reintubated. Remains stable from renal standpoint of view. Discussed with RN. Discussed with Dr. Myers. December 17: Remains intubated. Remains full code. Failed weaning. Stable from renal standpoint of view. Continue per consultants. Discussed with DARREL [place]. December 16: Remains intubated. Full code. Weaning in process. Stable from renal standpoint of view. December 15: Remains vented. Electrolytes improved. Continue per consultants. December 14: Patient remains in ICU intubated on ventilator. Potassium low. Phosphorus low. Supplements given. Renal parameters are stable. Continue per consultants. December 13: Patient remains in ICU intubated on ventilator. Discussed with RN. Labs reviewed. Creatinine 1.3. Potassium supplements given. Mag sulfate IV 2 g given. Continue per consultants. December 12: Patient in ICU. Intubated on ventilator. Discussed with RN. Labs reviewed. Potassium supplement given. Continue per consultants. Arterial blood gas indicative of CO2 retention. Patient on the way to ICU for intubation. Continue per pulmonary management. Pulmonary support, Check 2D echocardiogram. Previous 2D echo had a 50% ejection fraction. Keep blood sugar and blood pressure in check. Thyroid panel. Monitor electrolytes and renal parameters. Afterload reduction. Diuretics Monitor serum calcium, supplements via NG tube. Per orders. Subjective ROS Limited/Unobtainable: Yes Objective Objective Last 24 Hour Vital Signs Date Time Temp Pulse Resp B/P (MAP) Pulse Ox O2 Delivery O2 Flow Rate FiO2 12/24/19 09:00 74 21 127/53 (77) 99 12/24/19 08:30 82 21 114/44 (67) 12/24/19 08:00 98.0 85 25 157/74 (101) 97 12/24/19 08:00 50 12/24/19 08:00 83 12/24/19 08:00 Bi-pap 12/24/19 07:27 81 19 100 50 12/24/19 07:00 84 25 150/42 (78) 98 12/24/19 06:00 77 26 138/62 (87) 99 12/24/19 05:00 80 25 159/71 (100) 99 12/24/19 04:00 98.0 79 24 149/66 (93) 99 12/24/19 04:00 87 12/24/19 04:00 50 12/24/19 04:00 Bi-pap 12/24/19 03:30 78 16 97 50 12/24/19 03:00 80 26 144/64 (90) 99 12/24/19 02:00 86 23 130/100 (110) 97 12/24/19 01:47 167/66 12/24/19 01:00 82 32 158/69 (98) 98 12/24/19 00:30 85 34 158/70 (99) 97 12/24/19 00:00 Bi-pap 12/24/19 00:00 98.5 82 34 149/68 (95) 97 12/24/19 00:00 85 12/24/19 00:00 50 12/23/19 23:30 91 27 98 50 12/23/19 23:00 81 25 139/67 (91) 98 12/23/19 22:30 83 23 155/68 (97) 98 12/23/19 22:00 85 26 158/80 (106) 98 12/23/19 21:30 81 29 149/71 (97) 97 12/23/19 21:00 78 25 136/56 (82) 98 12/23/19 20:00 81 12/23/19 20:00 Bi-pap 12/23/19 20:00 50 12/23/19 20:00 98.0 88 23 153/73 (99) 98 12/23/19 19:30 86 29 99 50 12/23/19 19:00 79 24 140/59 (86) 100 12/23/19 18:00 95 28 131/104 (113) 97 12/23/19 17:00 80 25 141/57 (85) 100 12/23/19 16:00 74 12/23/19 16:00 Bi-pap 12/23/19 16:00 50 12/23/19 16:00 97.6 84 27 151/66 (94) 99 12/23/19 15:30 88 26 99 50 12/23/19 15:00 85 26 151/64 (93) 100 12/23/19 14:00 92 28 158/65 (96) 99 12/23/19 13:00 79 28 135/51 (79) 100 12/23/19 12:00 50 12/23/19 12:00 Bi-pap 12/23/19 12:00 97.4 88 27 134/114 (121) 100 12/23/19 12:00 92 12/23/19 11:32 93 28 97 50 12/23/19 11:00 75 23 138/59 (85) 96 12/23/19 10:00 77 24 145/52 (83) 100 Intake and Output 12/23/19 12/24/19 19:00 07:00 Intake Total 569.0 ml 757.49347 ml Output Total 820 ml 1025 ml Balance -251.0 ml -267.64661 ml Intake Oral 300 ml IV Total 269.0 ml 757.72381 ml Tube Feeding 0 ml 0 ml Output Urine Total 820 ml 1025 ml Laboratory Tests 12/24/19 05:55: White Blood Count 8.3, Red Blood Count 2.95L, Hemoglobin 9.5L, Hematocrit 30.8L , Mean Corpuscular Volume 104H, Mean Corpuscular Hemoglobin 32.4H, Mean Corpuscular Hemoglobin Concent 31.0L, Red Cell Distribution Width 13.3, Platelet Count 181, Mean Platelet Volume 6.3L, Neutrophils (%) (Auto) 82.4H, Lymphocytes (%) (Auto) 12.1L, Monocytes (%) (Auto) 5.1, Eosinophils (%) (Auto) 0.1, Basophils (%) (Auto) 0.3, Sodium Level 146H, Potassium Level 4.5, Chloride Level 107, Carbon Dioxide Level 37H, Anion Gap 2L, Blood Urea Nitrogen 31H, Creatinine 0.9, Estimat Glomerular Filtration Rate > 60, Glucose Level 158H, Uric Acid 2.7, Calcium Level 8.7, Phosphorus Level 3.3, Magnesium Level 2.3, Total Bilirubin 0.7, Aspartate Amino Transf (AST/SGOT) 20, Alanine Aminotransferase (ALT/SGPT) 34, Alkaline Phosphatase 32L, Total Protein 6.1L, Albumin 2.9L, Globulin 3.2, Albumin/Globulin Ratio 0.9L 12/24/19 08:07: Arterial Blood pH 7.410, Arterial Blood Partial Pressure CO2 53.2H, Arterial Blood Partial Pressure O2 88.1, Arterial Blood HCO3 33.0H, Arterial Blood Oxygen Saturation 95.7, Arterial Blood Base Excess 7.2H, Raphael Test Positive Height (Feet): 5 Height (Inches): 7.00 Weight (Pounds): 226 General Appearance: mild distress, agitated - At times EENT: other - On BiPAP Cardiovascular: tachycardia Respiratory/Chest: decreased breath sounds Abdomen: distended, other - Obese Bryan Ochoa MD Dec 24, 2019 09:35
--- NOTE | 2019-12-24 10:00 | NUR ---
NURSE NOTES: Repositioned; bilateral soft wrist restraints remains in place. Remains on BiPAP, SpO2 100%. No distress at this time; will continue to monitor.
--- NOTE | 2019-12-24 10:50 | General Progress Note ---
Assessment/Plan Status: unchanged Assessment/Plan: Assessment - Resp failure - r/o COVID -- x 2 negative - COPD - HTN - Anemia - Abnormal LFT Recommendations - extubated now -NGT is out - Elevate HOB - abx - follow labs - f/u hepatitis serologies>>> neg -repeat labs - patient now on BIPAP. ? needs reintubation -plan NGT placement and NGTF for now Subjective ROS Limited/Unobtainable: No Allergies: Coded Allergies: LITHIUM (Verified Allergy, Unknown, 02/07/19) Objective Last 24 Hour Vital Signs Date Time Temp Pulse Resp B/P (MAP) Pulse Ox O2 Delivery O2 Flow Rate FiO2 12/24/19 10:00 76 17 141/59 (86) 99 12/24/19 09:00 74 21 127/53 (77) 99 12/24/19 08:30 82 21 114/44 (67) 12/24/19 08:00 98.0 85 25 157/74 (101) 97 12/24/19 08:00 50 12/24/19 08:00 83 12/24/19 08:00 Bi-pap 12/24/19 07:27 81 19 100 50 12/24/19 07:00 84 25 150/42 (78) 98 12/24/19 06:00 77 26 138/62 (87) 99 12/24/19 05:00 80 25 159/71 (100) 99 12/24/19 04:00 98.0 79 24 149/66 (93) 99 12/24/19 04:00 87 12/24/19 04:00 50 12/24/19 04:00 Bi-pap 12/24/19 03:30 78 16 97 50 12/24/19 03:00 80 26 144/64 (90) 99 12/24/19 02:00 86 23 130/100 (110) 97 12/24/19 01:47 167/66 12/24/19 01:00 82 32 158/69 (98) 98 12/24/19 00:30 85 34 158/70 (99) 97 12/24/19 00:00 Bi-pap 12/24/19 00:00 98.5 82 34 149/68 (95) 97 12/24/19 00:00 85 12/24/19 00:00 50 12/23/19 23:30 91 27 98 50 12/23/19 23:00 81 25 139/67 (91) 98 12/23/19 22:30 83 23 155/68 (97) 98 12/23/19 22:00 85 26 158/80 (106) 98 12/23/19 21:30 81 29 149/71 (97) 97 12/23/19 21:00 78 25 136/56 (82) 98 12/23/19 20:00 81 12/23/19 20:00 Bi-pap 12/23/19 20:00 50 12/23/19 20:00 98.0 88 23 153/73 (99) 98 12/23/19 19:30 86 29 99 50 12/23/19 19:00 79 24 140/59 (86) 100 12/23/19 18:00 95 28 131/104 (113) 97 12/23/19 17:00 80 25 141/57 (85) 100 12/23/19 16:00 74 12/23/19 16:00 Bi-pap 12/23/19 16:00 50 12/23/19 16:00 97.6 84 27 151/66 (94) 99 12/23/19 15:30 88 26 99 50 12/23/19 15:00 85 26 151/64 (93) 100 12/23/19 14:00 92 28 158/65 (96) 99 12/23/19 13:00 79 28 135/51 (79) 100 12/23/19 12:00 50 12/23/19 12:00 Bi-pap 12/23/19 12:00 97.4 88 27 134/114 (121) 100 12/23/19 12:00 92 12/23/19 11:32 93 28 97 50 12/23/19 11:00 75 23 138/59 (85) 96 Intake and Output 12/23/19 12/24/19 19:00 07:00 Intake Total 569.0 ml 757.61733 ml Output Total 820 ml 1025 ml Balance -251.0 ml -267.44447 ml Intake Oral 300 ml IV Total 269.0 ml 757.63514 ml Tube Feeding 0 ml 0 ml Output Urine Total 820 ml 1025 ml Laboratory Tests 12/24/19 05:55: White Blood Count 8.3, Red Blood Count 2.95L, Hemoglobin 9.5L, Hematocrit 30.8L , Mean Corpuscular Volume 104H, Mean Corpuscular Hemoglobin 32.4H, Mean Corpuscular Hemoglobin Concent 31.0L, Red Cell Distribution Width 13.3, Platelet Count 181, Mean Platelet Volume 6.3L, Neutrophils (%) (Auto) 82.4H, Lymphocytes (%) (Auto) 12.1L, Monocytes (%) (Auto) 5.1, Eosinophils (%) (Auto) 0.1, Basophils (%) (Auto) 0.3, Sodium Level 146H, Potassium Level 4.5, Chloride Level 107, Carbon Dioxide Level 37H, Anion Gap 2L, Blood Urea Nitrogen 31H, Creatinine 0.9, Estimat Glomerular Filtration Rate > 60, Glucose Level 158H, Uric Acid 2.7, Calcium Level 8.7, Phosphorus Level 3.3, Magnesium Level 2.3, Total Bilirubin 0.7, Aspartate Amino Transf (AST/SGOT) 20, Alanine Aminotransferase (ALT/SGPT) 34, Alkaline Phosphatase 32L, Total Protein 6.1L, Albumin 2.9L, Globulin 3.2, Albumin/Globulin Ratio 0.9L 12/24/19 08:07: Arterial Blood pH 7.410, Arterial Blood Partial Pressure CO2 53.2H, Arterial Blood Partial Pressure O2 88.1, Arterial Blood HCO3 33.0H, Arterial Blood Oxygen Saturation 95.7, Arterial Blood Base Excess 7.2H, Raphael Test Positive Height (Feet): 5 Height (Inches): 7.00 Weight (Pounds): 226 General Appearance: no apparent distress EENT: normal ENT inspection Neck: supple Cardiovascular: normal rate Respiratory/Chest: decreased breath sounds Abdomen: normal bowel sounds, non tender, soft Extremities: non-tender Kirk Vidal MD Dec 24, 2019 10:50
--- NOTE | 2019-12-24 10:53 | NUR ---
NURSE NOTES: Spoke with Dr Vidal via telephone, upadted on patient's condition. Ordered to insert NGT pending swallow eval. Will carry out and will continue to monitor patient.
--- NOTE | 2019-12-24 11:02 | Infectious Diseases Prog Note ---
Assessment/Plan Assessment/Plan IMPRESSION: COPD exacerbation, Pneumonia, COID19 X 2: negative Acute respiratory failure with hypercapnia Dementia, Parkinson, Mitral valve regurgitation, Hypertension, Hypothyroidism. Hypokalemia RECOMMENDATION: Change Zosyn until tonight Case was D/W RN Subjective ROS Limited/Unobtainable: Yes Constitutional: Denies: fever Neurologic: Reports: confusion, other - on restraint Allergies: Coded Allergies: LITHIUM (Verified Allergy, Unknown, 02/07/19) Objective Last 24 Hour Vital Signs Date Time Temp Pulse Resp B/P (MAP) Pulse Ox O2 Delivery O2 Flow Rate FiO2 12/24/19 10:00 76 17 141/59 (86) 99 12/24/19 09:00 74 21 127/53 (77) 99 12/24/19 08:30 82 21 114/44 (67) 12/24/19 08:00 98.0 85 25 157/74 (101) 97 12/24/19 08:00 50 12/24/19 08:00 83 12/24/19 08:00 Bi-pap 12/24/19 07:27 81 19 100 50 12/24/19 07:00 84 25 150/42 (78) 98 12/24/19 06:00 77 26 138/62 (87) 99 12/24/19 05:00 80 25 159/71 (100) 99 12/24/19 04:00 98.0 79 24 149/66 (93) 99 12/24/19 04:00 87 12/24/19 04:00 50 12/24/19 04:00 Bi-pap 12/24/19 03:30 78 16 97 50 12/24/19 03:00 80 26 144/64 (90) 99 12/24/19 02:00 86 23 130/100 (110) 97 12/24/19 01:47 167/66 12/24/19 01:00 82 32 158/69 (98) 98 12/24/19 00:30 85 34 158/70 (99) 97 12/24/19 00:00 Bi-pap 12/24/19 00:00 98.5 82 34 149/68 (95) 97 12/24/19 00:00 85 12/24/19 00:00 50 12/23/19 23:30 91 27 98 50 12/23/19 23:00 81 25 139/67 (91) 98 12/23/19 22:30 83 23 155/68 (97) 98 12/23/19 22:00 85 26 158/80 (106) 98 12/23/19 21:30 81 29 149/71 (97) 97 12/23/19 21:00 78 25 136/56 (82) 98 12/23/19 20:00 81 12/23/19 20:00 Bi-pap 12/23/19 20:00 50 12/23/19 20:00 98.0 88 23 153/73 (99) 98 12/23/19 19:30 86 29 99 50 12/23/19 19:00 79 24 140/59 (86) 100 12/23/19 18:00 95 28 131/104 (113) 97 12/23/19 17:00 80 25 141/57 (85) 100 12/23/19 16:00 74 12/23/19 16:00 Bi-pap 12/23/19 16:00 50 12/23/19 16:00 97.6 84 27 151/66 (94) 99 12/23/19 15:30 88 26 99 50 12/23/19 15:00 85 26 151/64 (93) 100 12/23/19 14:00 92 28 158/65 (96) 99 12/23/19 13:00 79 28 135/51 (79) 100 12/23/19 12:00 50 12/23/19 12:00 Bi-pap 12/23/19 12:00 97.4 88 27 134/114 (121) 100 12/23/19 12:00 92 12/23/19 11:32 93 28 97 50 Height (Feet): 5 Height (Inches): 7.00 Weight (Pounds): 226 HEENT: mucous membranes moist Respiratory/Chest: decreased breath sounds, other - on BIPAP Cardiovascular: normal rate Abdomen: soft, non tender Extremities: other - R hand edema Neurologic/Psychiatric: disoriented Laboratory Tests Test 12/24/19 05:55 12/24/19 08:07 White Blood Count 8.3 K/UL (4.8-10.8) Red Blood Count 2.95 M/UL (4.20-5.40) L Hemoglobin 9.5 G/DL (12.0-16.0) L Hematocrit 30.8 % (37.0-47.0) L Mean Corpuscular Volume 104 FL (80-99) H Mean Corpuscular Hemoglobin 32.4 PG (27.0-31.0) H Mean Corpuscular Hemoglobin Concent 31.0 G/DL (32.0-36.0) L Red Cell Distribution Width 13.3 % (11.6-14.8) Platelet Count 181 K/UL (150-450) Mean Platelet Volume 6.3 FL (6.5-10.1) L Neutrophils (%) (Auto) 82.4 % (45.0-75.0) H Lymphocytes (%) (Auto) 12.1 % (20.0-45.0) L Monocytes (%) (Auto) 5.1 % (1.0-10.0) Eosinophils (%) (Auto) 0.1 % (0.0-3.0) Basophils (%) (Auto) 0.3 % (0.0-2.0) Sodium Level 146 MMOL/L (136-145) H Potassium Level 4.5 MMOL/L (3.5-5.1) Chloride Level 107 MMOL/L (98-107) Carbon Dioxide Level 37 MMOL/L (21-32) H Anion Gap 2 mmol/L (5-15) L Blood Urea Nitrogen 31 mg/dL (7-18) H Creatinine 0.9 MG/DL (0.55-1.30) Estimat Glomerular Filtration Rate > 60 mL/min (>60) Glucose Level 158 MG/DL (74-106) H Uric Acid 2.7 MG/DL (2.6-7.2) Calcium Level 8.7 MG/DL (8.5-10.1) Phosphorus Level 3.3 MG/DL (2.5-4.9) Magnesium Level 2.3 MG/DL (1.8-2.4) Total Bilirubin 0.7 MG/DL (0.2-1.0) Aspartate Amino Transf (AST/SGOT) 20 U/L (15-37) Alanine Aminotransferase (ALT/SGPT) 34 U/L (12-78) Alkaline Phosphatase 32 U/L (46-116) L Total Protein 6.1 G/DL (6.4-8.2) L Albumin 2.9 G/DL (3.4-5.0) L Globulin 3.2 g/dL Albumin/Globulin Ratio 0.9 (1.0-2.7) L Arterial Blood pH 7.410 (7.350-7.450) Arterial Blood Partial Pressure CO2 53.2 mmHg (35.0-45.0) H Arterial Blood Partial Pressure O2 88.1 mmHg (75.0-100.0) Arterial Blood HCO3 33.0 mmol/L (22.0-26.0) H Arterial Blood Oxygen Saturation 95.7 % (95-100) Arterial Blood Base Excess 7.2 (-2-2) H Raphael Test Positive Current Medications Medications (Trade) Dose Ordered Sig/Angie Route PRN Reason Start Time Stop Time Status Last Admin Dose Admin Acetaminophen (Tylenol) 650 mg Q6H PRN ORAL Mild Pain (Pain Scale 1-3) 12/12/19 12:30 01/11/20 12:29 12/22/19 20:56 Acetaminophen (Tylenol) 1,000 mg Q6H PRN ORAL MODERATE PAIN 12/12/19 12:30 01/11/20 12:29 Amantadine HCl (Symmetrel) 100 mg TWICE A DAY ORAL 12/22/19 18:00 01/11/20 08:59 12/24/19 08:40 Aspirin (ASA) 324 mg DAILY ORAL 12/23/19 09:00 02/04/20 08:59 12/24/19 08:41 Atorvastatin Calcium (Lipitor) 10 mg BEDTIME ORAL 12/22/19 21:00 03/11/20 20:59 12/23/19 20:19 Calcium Carbonate (Os-Octavio) 500 mg THREE TIMES A DAY ORAL 12/22/19 13:00 03/20/20 17:59 12/24/19 08:41 Clonidine HCl (Catapres Tab) 0.1 mg Q6H PRN GT For high BP over 160 systolic 12/15/19 16:30 03/11/20 12:30 12/24/19 01:47 Dextrose 1,000 ml @ 50 mls/hr Q20H IV 12/22/19 09:00 01/21/20 08:59 12/24/19 00:09 Dextrose (Dextrose 50%) 25 ml Q30M PRN IV Hypoglycemia 12/13/19 07:15 03/12/20 07:14 Dextrose (Dextrose 50%) 50 ml Q30M PRN IV Hypoglycemia 12/13/19 07:15 03/12/20 07:14 Divalproex Sodium (Depakote) 250 mg EVERY 12 HOURS ORAL 12/22/19 21:00 01/12/20 20:59 12/24/19 08:41 Docusate Sodium (Colace) 100 mg TWICE A DAY ORAL 12/22/19 18:00 01/14/20 17:59 12/24/19 08:40 Fentanyl Citrate 250 ml @ 0 mls/hr Q24H IV 12/18/19 20:53 03/17/20 20:52 12/19/19 20:56 Insulin Aspart (NovoLOG) EVERY 6 HOURS SUBQ 12/13/19 12:00 03/12/20 11:59 12/24/19 05:15 Levothyroxine Sodium (Synthroid) 75 mcg DAILY IV 12/13/19 09:00 01/11/20 09:29 12/24/19 09:15 Methylprednisolone Sodium Succinate (Solu-MEDROL) 20 mg EVERY 6 HOURS IVP 12/22/19 12:00 03/18/20 11:59 12/24/19 05:09 Nitroglycerin (Ntg) 0.4 mg Q5MIN X 3 DOSES PRN SL CHEST PAIN 12/12/19 12:00 01/10/20 21:44 Pantoprazole (Protonix) 40 mg EVERY 12 HOURS IVP 12/14/19 09:00 01/13/20 08:59 12/24/19 08:40 Phosphorus (Phospha 250 Neutral) 250 mg THREE TIMES A DAY ORAL 12/22/19 13:00 01/14/20 08:59 12/24/19 08:41 Piperacillin Sod/ Tazobactam Sod 3.375 gm/Sodium Chloride 110 ml @ 27.5 mls/hr EVERY 8 HOURS IVPB 12/19/19 14:00 12/28/19 13:59 12/24/19 05:09 Polyethylene Glycol (Miralax) 17 gm BEDTIME ORAL 12/22/19 21:00 01/18/20 20:59 12/22/19 20:49 Quetiapine Fumarate (SEROqueL) 50 mg Q12HR ORAL 12/22/19 21:00 02/05/20 20:59 12/24/19 08:40 Lei Chan MD 13, 2020 11:02
--- NOTE | 2019-12-24 11:04 | Cardiac Electrophysiology PN ---
Assessment/Plan Assessment/Plan 1. Recurrent respiratory failure with BNP of more than 19,000. Echo showed normal ejection fraction. Off Lasix, extubated on BIPAP 2. Bradycardia requiring atropine due to respiratory failure as was on T piece at the time. No recurrence on the Vent 3. Bilateral UE edema. Venous Duplex was negative on 12/12/19. 4. History of Parkinson disease. 5. Hyperlipidemia. 6. Metabolic alkalosis. Better off Lasix DW RN Subjective Subjective Extubated and off pressors. No more laney. Now on BIPAP. Has frequent Trigeminal PVCs Objective Last 24 Hour Vital Signs Date Time Temp Pulse Resp B/P (MAP) Pulse Ox O2 Delivery O2 Flow Rate FiO2 12/24/19 10:00 76 17 141/59 (86) 99 12/24/19 09:00 74 21 127/53 (77) 99 12/24/19 08:30 82 21 114/44 (67) 12/24/19 08:00 98.0 85 25 157/74 (101) 97 12/24/19 08:00 50 12/24/19 08:00 83 12/24/19 08:00 Bi-pap 12/24/19 07:27 81 19 100 50 12/24/19 07:00 84 25 150/42 (78) 98 12/24/19 06:00 77 26 138/62 (87) 99 12/24/19 05:00 80 25 159/71 (100) 99 12/24/19 04:00 98.0 79 24 149/66 (93) 99 12/24/19 04:00 87 12/24/19 04:00 50 12/24/19 04:00 Bi-pap 12/24/19 03:30 78 16 97 50 12/24/19 03:00 80 26 144/64 (90) 99 12/24/19 02:00 86 23 130/100 (110) 97 12/24/19 01:47 167/66 12/24/19 01:00 82 32 158/69 (98) 98 12/24/19 00:30 85 34 158/70 (99) 97 12/24/19 00:00 Bi-pap 12/24/19 00:00 98.5 82 34 149/68 (95) 97 12/24/19 00:00 85 12/24/19 00:00 50 12/23/19 23:30 91 27 98 50 12/23/19 23:00 81 25 139/67 (91) 98 12/23/19 22:30 83 23 155/68 (97) 98 12/23/19 22:00 85 26 158/80 (106) 98 12/23/19 21:30 81 29 149/71 (97) 97 12/23/19 21:00 78 25 136/56 (82) 98 12/23/19 20:00 81 12/23/19 20:00 Bi-pap 12/23/19 20:00 50 12/23/19 20:00 98.0 88 23 153/73 (99) 98 12/23/19 19:30 86 29 99 50 12/23/19 19:00 79 24 140/59 (86) 100 12/23/19 18:00 95 28 131/104 (113) 97 12/23/19 17:00 80 25 141/57 (85) 100 12/23/19 16:00 74 12/23/19 16:00 Bi-pap 12/23/19 16:00 50 12/23/19 16:00 97.6 84 27 151/66 (94) 99 12/23/19 15:30 88 26 99 50 12/23/19 15:00 85 26 151/64 (93) 100 12/23/19 14:00 92 28 158/65 (96) 99 12/23/19 13:00 79 28 135/51 (79) 100 12/23/19 12:00 50 12/23/19 12:00 Bi-pap 12/23/19 12:00 97.4 88 27 134/114 (121) 100 12/23/19 12:00 92 12/23/19 11:32 93 28 97 50 Intake and Output 12/23/19 12/24/19 19:00 07:00 Intake Total 569.0 ml 757.30237 ml Output Total 820 ml 1025 ml Balance -251.0 ml -267.56128 ml Intake Oral 300 ml IV Total 269.0 ml 757.65678 ml Tube Feeding 0 ml 0 ml Output Urine Total 820 ml 1025 ml Laboratory Tests Test 12/24/19 05:55 12/24/19 08:07 White Blood Count 8.3 K/UL (4.8-10.8) Red Blood Count 2.95 M/UL (4.20-5.40) L Hemoglobin 9.5 G/DL (12.0-16.0) L Hematocrit 30.8 % (37.0-47.0) L Mean Corpuscular Volume 104 FL (80-99) H Mean Corpuscular Hemoglobin 32.4 PG (27.0-31.0) H Mean Corpuscular Hemoglobin Concent 31.0 G/DL (32.0-36.0) L Red Cell Distribution Width 13.3 % (11.6-14.8) Platelet Count 181 K/UL (150-450) Mean Platelet Volume 6.3 FL (6.5-10.1) L Neutrophils (%) (Auto) 82.4 % (45.0-75.0) H Lymphocytes (%) (Auto) 12.1 % (20.0-45.0) L Monocytes (%) (Auto) 5.1 % (1.0-10.0) Eosinophils (%) (Auto) 0.1 % (0.0-3.0) Basophils (%) (Auto) 0.3 % (0.0-2.0) Sodium Level 146 MMOL/L (136-145) H Potassium Level 4.5 MMOL/L (3.5-5.1) Chloride Level 107 MMOL/L (98-107) Carbon Dioxide Level 37 MMOL/L (21-32) H Anion Gap 2 mmol/L (5-15) L Blood Urea Nitrogen 31 mg/dL (7-18) H Creatinine 0.9 MG/DL (0.55-1.30) Estimat Glomerular Filtration Rate > 60 mL/min (>60) Glucose Level 158 MG/DL (74-106) H Uric Acid 2.7 MG/DL (2.6-7.2) Calcium Level 8.7 MG/DL (8.5-10.1) Phosphorus Level 3.3 MG/DL (2.5-4.9) Magnesium Level 2.3 MG/DL (1.8-2.4) Total Bilirubin 0.7 MG/DL (0.2-1.0) Aspartate Amino Transf (AST/SGOT) 20 U/L (15-37) Alanine Aminotransferase (ALT/SGPT) 34 U/L (12-78) Alkaline Phosphatase 32 U/L (46-116) L Total Protein 6.1 G/DL (6.4-8.2) L Albumin 2.9 G/DL (3.4-5.0) L Globulin 3.2 g/dL Albumin/Globulin Ratio 0.9 (1.0-2.7) L Arterial Blood pH 7.410 (7.350-7.450) Arterial Blood Partial Pressure CO2 53.2 mmHg (35.0-45.0) H Arterial Blood Partial Pressure O2 88.1 mmHg (75.0-100.0) Arterial Blood HCO3 33.0 mmol/L (22.0-26.0) H Arterial Blood Oxygen Saturation 95.7 % (95-100) Arterial Blood Base Excess 7.2 (-2-2) H Raphael Test Positive Objective HEAD AND NECK: No JVD.BIPAP is on LUNGS: Coarse rhonchi. CARDIOVASCULAR: Regular S1 and S2 and tachycardic. ABDOMEN: Soft. EXTREMITIES: Bilateral Arm edema. Cameron Davies MD Dec 24, 2019 11:04
--- NOTE | 2019-12-24 11:14 | NUR ---
NURSE NOTES: Placed NGT on the left nare per Dr Vidal's order. Patient tolerated procedure well. Abdominal xray order placed to confirm placement. Will continue to monitor.
--- NOTE | 2019-12-24 11:30 | NUR ---
NURSE NOTES: Dr Myers seen and assessed patient; notified and made aware of patient's condition. Patient remains on BiPAP. Ordered to keep patient in ICU at this time.
--- NOTE | 2019-12-24 11:38 | NUR ---
ST NOTE ORGANIZATIONAL EFFECTIVENESS DIRECTOR orders received and acknowledged from Dr. Vidal on 12/24/19 for Bedside Swallow Evaluation. Patient initially referred to ORGANIZATIONAL EFFECTIVENESS DIRECTOR by Dr. Ochoa on 12/11/19, however, no evaluation completed due to Patient condition. Of note, the following took place since previous ORGANIZATIONAL EFFECTIVENESS DIRECTOR evaluation received: -Patient in ICU on December 12 intubated and on vent. -December 17, Patient self-extubated and re-intubated -December 18 Failed weaning trial -December 20 Patient extubated and placed on nonrebreather (NRBM) mask. -December 23, Today Patient is on BiPAP, per RN, Patient was able to swallow PO medications with thin liquids without overt s/s of aspiration. However, Patient immediately destated when BiPAP mask was removed and given high aspiration risk, NGT was inserted. ORGANIZATIONAL EFFECTIVENESS DIRECTOR inquired about Patient's ability to participate in PO trials with HFNC; Per MD not appropriate for HFNC at this time. ORGANIZATIONAL EFFECTIVENESS DIRECTOR will f/u with Patient tomorrow to see if Patient is ready for PO trials for Bedside Swallow Evaluation to determine safest and least restrictive diet. RN is aware of Patients oral hygiene needs. Thank you for this referral. ORGANIZATIONAL EFFECTIVENESS DIRECTOR [phone]
--- NOTE | 2019-12-24 11:59 | Hematology/Onc Progress Note ---
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 ( combination of moderate aortic regurgitation and severe mitral regurgitation) --> diuresis as per cards --> lasix last time # Severe ascending aortic dilatation --> per Dr Keke campbell # Hypertension # Parkinson disease # Hyperlipidemia # Hypothyroidism # Dementia # Obesity # Schizophrenia --> as per [facility] --> restraints # Dvt ppx lovenox sq/scd's Appreciate recruitment consultant care and alexei Rn Subjective HEENT: Denies: no symptoms, eye pain, blurred vision, tearing, double vision, ear pain, ear discharge, nose pain, nose congestion, throat pain, throat swelling, mouth pain, mouth swelling, other Cardiovascular: Denies: no symptoms, chest pain, edema, irregular heart rate, lightheadedness, palpitations, syncope, other Respiratory: Denies: no symptoms, cough, shortness of breath, SOB with excertion, SOB at rest, sputum, wheezing, other Neurologic/Psychiatric: Denies: no symptoms, anxiety, depressed, emotional problems, headache, numbness, paresthesia, pre-existing deficit, seizure, tingling, tremors, weakness, other Endocrine: Denies: no symptoms, excessive sweating, flushing, intolerance to cold, intolerance to heat, increased hunger, increased thirst, increased urine, unexplained weight gain, unexplained weight loss, other Allergies: Coded Allergies: LITHIUM (Verified Allergy, Unknown, 02/07/19) Subjective 12/12 labs are reviewed, intubated, with og, somewhat responsive, dw rn 12/13 labs noted, hgb 7.8, tfs ok to start per gi 12/15 icu, restraints, no acute events, hep panel negative, sedated 12/16 no bleeding, in the icu, on abx, in restarints, sleepy, vent 12/17 is on vent, also is on abx, awake, with ogt / ng placed, hgb 9.6, no bleeding, no night sweats 12/19 labs reviewed, sedated, on vent, nob leeding, meds reviewed 12/20 remains on vent, audra bleeding, meds reviewed, no night sweats 12/22 hgb 9.5, to get zosyn x 1 more day, no night sweats meds reviewed 12/23 labs noted, no bleeding, with fm, no bleeding or night sweats Objective Objective Current Medications Medications (Trade) Dose Ordered Sig/Angie Route PRN Reason Start Time Stop Time Status Last Admin Dose Admin Acetaminophen (Tylenol) 650 mg Q6H PRN ORAL Mild Pain (Pain Scale 1-3) 12/12/19 12:30 01/11/20 12:29 12/22/19 20:56 Acetaminophen (Tylenol) 1,000 mg Q6H PRN ORAL MODERATE PAIN 12/12/19 12:30 01/11/20 12:29 Amantadine HCl (Symmetrel) 100 mg TWICE A DAY ORAL 12/22/19 18:00 01/11/20 08:59 12/24/19 08:40 Aspirin (ASA) 324 mg DAILY ORAL 12/23/19 09:00 02/04/20 08:59 12/24/19 08:41 Atorvastatin Calcium (Lipitor) 10 mg BEDTIME ORAL 12/22/19 21:00 03/11/20 20:59 12/23/19 20:19 Calcium Carbonate (Os-Octavio) 500 mg THREE TIMES A DAY ORAL 12/22/19 13:00 03/20/20 17:59 12/24/19 08:41 Clonidine HCl (Catapres Tab) 0.1 mg Q6H PRN GT For high BP over 160 systolic 12/15/19 16:30 03/11/20 12:30 12/24/19 01:47 Dextrose 1,000 ml @ 50 mls/hr Q20H IV 12/22/19 09:00 01/21/20 08:59 12/24/19 00:09 Dextrose (Dextrose 50%) 25 ml Q30M PRN IV Hypoglycemia 12/13/19 07:15 03/12/20 07:14 Dextrose (Dextrose 50%) 50 ml Q30M PRN IV Hypoglycemia 12/13/19 07:15 03/12/20 07:14 Divalproex Sodium (Depakote) 250 mg EVERY 12 HOURS ORAL 12/22/19 21:00 01/12/20 20:59 12/24/19 08:41 Docusate Sodium (Colace) 100 mg TWICE A DAY ORAL 12/22/19 18:00 01/14/20 17:59 12/24/19 08:40 Fentanyl Citrate 250 ml @ 0 mls/hr Q24H IV 12/18/19 20:53 03/17/20 20:52 12/19/19 20:56 Insulin Aspart (NovoLOG) EVERY 6 HOURS SUBQ 12/13/19 12:00 03/12/20 11:59 12/24/19 11:40 Levothyroxine Sodium (Synthroid) 75 mcg DAILY IV 12/13/19 09:00 01/11/20 09:29 12/24/19 09:15 Methylprednisolone Sodium Succinate (Solu-MEDROL) 20 mg EVERY 6 HOURS IVP 12/22/19 12:00 03/18/20 11:59 12/24/19 11:37 Nitroglycerin (Ntg) 0.4 mg Q5MIN X 3 DOSES PRN SL CHEST PAIN 12/12/19 12:00 01/10/20 21:44 Pantoprazole (Protonix) 40 mg EVERY 12 HOURS IVP 12/14/19 09:00 01/13/20 08:59 12/24/19 08:40 Phosphorus (Phospha 250 Neutral) 250 mg THREE TIMES A DAY ORAL 12/22/19 13:00 01/14/20 08:59 12/24/19 08:41 Piperacillin Sod/ Tazobactam Sod 3.375 gm/Sodium Chloride 110 ml @ 27.5 mls/hr EVERY 8 HOURS IVPB 12/19/19 14:00 12/28/19 13:59 12/24/19 05:09 Polyethylene Glycol (Miralax) 17 gm BEDTIME ORAL 12/22/19 21:00 01/18/20 20:59 12/22/19 20:49 Quetiapine Fumarate (SEROqueL) 50 mg Q12HR ORAL 12/22/19 21:00 02/05/20 20:59 12/24/19 08:40 Last 24 Hour Vital Signs Date Time Temp Pulse Resp B/P (MAP) Pulse Ox O2 Delivery O2 Flow Rate FiO2 12/24/19 11:00 80 23 148/61 (90) 100 12/24/19 10:00 76 17 141/59 (86) 99 12/24/19 09:00 74 21 127/53 (77) 99 12/24/19 08:30 82 21 114/44 (67) 12/24/19 08:00 98.0 85 25 157/74 (101) 97 12/24/19 08:00 50 12/24/19 08:00 83 12/24/19 08:00 Bi-pap 12/24/19 07:27 81 19 100 50 12/24/19 07:00 84 25 150/42 (78) 98 12/24/19 06:00 77 26 138/62 (87) 99 12/24/19 05:00 80 25 159/71 (100) 99 12/24/19 04:00 98.0 79 24 149/66 (93) 99 12/24/19 04:00 87 12/24/19 04:00 50 12/24/19 04:00 Bi-pap 12/24/19 03:30 78 16 97 50 12/24/19 03:00 80 26 144/64 (90) 99 12/24/19 02:00 86 23 130/100 (110) 97 12/24/19 01:47 167/66 12/24/19 01:00 82 32 158/69 (98) 98 12/24/19 00:30 85 34 158/70 (99) 97 12/24/19 00:00 Bi-pap 12/24/19 00:00 98.5 82 34 149/68 (95) 97 12/24/19 00:00 85 12/24/19 00:00 50 12/23/19 23:30 91 27 98 50 12/23/19 23:00 81 25 139/67 (91) 98 7/12/20 22:30 83 23 155/68 (97) 98 12/23/19 22:00 85 26 158/80 (106) 98 12/23/19 21:30 81 29 149/71 (97) 97 12/23/19 21:00 78 25 136/56 (82) 98 12/23/19 20:00 81 12/23/19 20:00 Bi-pap 12/23/19 20:00 50 12/23/19 20:00 98.0 88 23 153/73 (99) 98 12/23/19 19:30 86 29 99 50 12/23/19 19:00 79 24 140/59 (86) 100 12/23/19 18:00 95 28 131/104 (113) 97 12/23/19 17:00 80 25 141/57 (85) 100 12/23/19 16:00 74 12/23/19 16:00 Bi-pap 12/23/19 16:00 50 12/23/19 16:00 97.6 84 27 151/66 (94) 99 12/23/19 15:30 88 26 99 50 12/23/19 15:00 85 26 151/64 (93) 100 12/23/19 14:00 92 28 158/65 (96) 99 12/23/19 13:00 79 28 135/51 (79) 100 12/23/19 12:00 50 12/23/19 12:00 Bi-pap 12/23/19 12:00 97.4 88 27 134/114 (121) 100 12/23/19 12:00 92 12/23/19 11:32 93 28 97 50 12/23/19 11:00 75 23 138/59 (85) 96 12/23/19 10:00 77 24 145/52 (83) 100 12/23/19 09:00 79 23 140/53 (82) 100 12/23/19 08:45 50 12/23/19 08:00 97.2 78 26 149/60 (89) 97 12/23/19 08:00 Bi-pap 12/23/19 08:00 89 12/23/19 07:35 40 12/23/19 07:32 40 12/23/19 07:16 86 24 100 60 12/23/19 07:00 74 22 138/62 (87) 100 7/12/20 06:00 74 21 140/50 (80) 100 12/23/19 05:00 76 22 139/55 (83) 99 12/23/19 04:01 75 12/23/19 04:00 97.7 76 22 130/52 (78) 99 12/23/19 04:00 Bi-pap 12/23/19 04:00 60 12/23/19 03:03 75 21 100 60 12/23/19 03:00 76 24 137/63 (87) 98 12/23/19 02:00 74 22 131/54 (79) 99 12/23/19 01:00 83 25 142/57 (85) 99 12/23/19 00:00 Bi-pap 12/23/19 00:00 97.8 85 24 138/52 (80) 98 12/23/19 00:00 60 12/22/19 23:08 77 12/22/19 23:00 78 24 132/52 (78) 98 12/22/19 22:46 83 23 137/57 (83) 98 12/22/19 22:40 83 22 98 60 12/22/19 22:00 84 25 118/50 (72) 93 12/22/19 21:00 94 26 146/63 (90) 98 12/22/19 20:53 27 130/56 Venturi Mask 60 12/22/19 20:00 98.5 93 29 144/74 (97) 97 12/22/19 20:00 60 12/22/19 20:00 Venturi Mask 12/22/19 19:34 97 12/22/19 19:00 97 26 127/53 (77) 86 12/22/19 18:50 98 Cool Aerosol 10.0 60 12/22/19 18:00 93 26 133/80 (97) 85 12/22/19 17:00 97 24 136/67 (90) 93 12/22/19 16:00 Non-Rebreather 12/22/19 16:00 60 12/22/19 16:00 94 12/22/19 16:00 98.2 94 26 136/59 (84) 94 12/22/19 16:00 94 26 136/59 (84) 94 12/22/19 15:00 93 24 145/59 (87) 96 12/22/19 14:00 97 25 154/59 (90) 90 12/22/19 13:00 91 24 134/66 (88) 96 12/22/19 12:03 85 12/22/19 12:00 60 12/22/19 12:00 Non-Rebreather 12/22/19 12:00 98.0 84 38 129/55 (79) 96 Intake and Output 12/23/19 12/24/19 19:00 07:00 Intake Total 569.0 ml 757.30831 ml Output Total 820 ml 1025 ml Balance -251.0 ml -267.80171 ml Intake Oral 300 ml IV Total 269.0 ml 757.04963 ml Tube Feeding 0 ml 0 ml Output Urine Total 820 ml 1025 ml Labs Test 12/21/19 17:06 12/21/19 23:27 12/22/19 04:45 12/22/19 22:25 POC Whole Blood Glucose 133 MG/DL (74-106) White Blood Count 10.8 K/UL (4.8-10.8) Red Blood Count 2.97 M/UL (4.20-5.40) Hemoglobin 9.7 G/DL (12.0-16.0) Hematocrit 31.7 % (37.0-47.0) Mean Corpuscular Volume 107 FL (80-99) Mean Corpuscular Hemoglobin 32.5 PG (27.0-31.0) Mean Corpuscular Hemoglobin Concent 30.5 G/DL (32.0-36.0) Red Cell Distribution Width 13.4 % (11.6-14.8) Platelet Count 202 K/UL (150-450) Mean Platelet Volume 7.0 FL (6.5-10.1) Neutrophils (%) (Auto) % (45.0-75.0) Lymphocytes (%) (Auto) % (20.0-45.0) Monocytes (%) (Auto) % (1.0-10.0) Eosinophils (%) (Auto) % (0.0-3.0) Basophils (%) (Auto) % (0.0-2.0) Sodium Level 153 MMOL/L (136-145) Potassium Level 4.4 MMOL/L (3.5-5.1) Chloride Level 113 MMOL/L (98-107) Carbon Dioxide Level 34 MMOL/L (21-32) Anion Gap 7 mmol/L (5-15) Blood Urea Nitrogen 31 mg/dL (7-18) Creatinine 1.0 MG/DL (0.55-1.30) Estimat Glomerular Filtration Rate 53.3 mL/min (>60) Glucose Level 151 MG/DL (74-106) Calcium Level 8.6 MG/DL (8.5-10.1) Phosphorus Level 3.3 MG/DL (2.5-4.9) Magnesium Level 1.7 MG/DL (1.8-2.4) Total Bilirubin 0.5 MG/DL (0.2-1.0) Aspartate Amino Transf (AST/SGOT) 5 U/L (15-37) Alanine Aminotransferase (ALT/SGPT) 24 U/L (12-78) Alkaline Phosphatase 36 U/L (46-116) Total Protein 6.9 G/DL (6.4-8.2) Albumin 3.4 G/DL (3.4-5.0) Globulin 3.5 g/dL Albumin/Globulin Ratio 1.0 (1.0-2.7) Arterial Blood pH 7.271 (7.350-7.450) Arterial Blood Partial Pressure CO2 69.5 mmHg (35.0-45.0) Arterial Blood Partial Pressure O2 78.4 mmHg (75.0-100.0) Arterial Blood HCO3 31.3 mmol/L (22.0-26.0) Arterial Blood Oxygen Saturation 92.5 % (95-100) Arterial Blood Base Excess 3.1 (-2-2) Raphael Test Positive Test 12/23/19 05:20 12/23/19 05:25 12/23/19 07:16 12/24/19 05:55 White Blood Count 9.1 K/UL (4.8-10.8) 8.3 K/UL (4.8-10.8) Red Blood Count 2.96 M/UL (4.20-5.40) 2.95 M/UL (4.20-5.40) Hemoglobin 9.5 G/DL (12.0-16.0) 9.5 G/DL (12.0-16.0) Hematocrit 31.4 % (37.0-47.0) 30.8 % (37.0-47.0) Mean Corpuscular Volume 106 FL (80-99) 104 FL (80-99) Mean Corpuscular Hemoglobin 32.2 PG (27.0-31.0) 32.4 PG (27.0-31.0) Mean Corpuscular Hemoglobin Concent 30.3 G/DL (32.0-36.0) 31.0 G/DL (32.0-36.0) Red Cell Distribution Width 13.3 % (11.6-14.8) 13.3 % (11.6-14.8) Platelet Count 184 K/UL (150-450) 181 K/UL (150-450) Mean Platelet Volume 6.7 FL (6.5-10.1) 6.3 FL (6.5-10.1) Neutrophils (%) (Auto) % (45.0-75.0) 82.4 % (45.0-75.0) Lymphocytes (%) (Auto) % (20.0-45.0) 12.1 % (20.0-45.0) Monocytes (%) (Auto) % (1.0-10.0) 5.1 % (1.0-10.0) Eosinophils (%) (Auto) % (0.0-3.0) 0.1 % (0.0-3.0) Basophils (%) (Auto) % (0.0-2.0) 0.3 % (0.0-2.0) Differential Total Cells Counted 100 Neutrophils % (Manual) 89 % (45-75) Lymphocytes % (Manual) 7 % (20-45) Monocytes % (Manual) 4 % (1-10) Eosinophils % (Manual) 0 % (0-3) Basophils % (Manual) 0 % (0-2) Band Neutrophils 0 % (0-8) Platelet Estimate Adequate Platelet Morphology Normal Hypochromasia 1+ Macrocytosis 1+ Sodium Level 152 MMOL/L (136-145) 146 MMOL/L (136-145) Potassium Level 5.0 MMOL/L (3.5-5.1) 4.5 MMOL/L (3.5-5.1) Chloride Level 112 MMOL/L (98-107) 107 MMOL/L (98-107) Carbon Dioxide Level 35 MMOL/L (21-32) 37 MMOL/L (21-32) Anion Gap 5 mmol/L (5-15) 2 mmol/L (5-15) Blood Urea Nitrogen 32 mg/dL (7-18) 31 mg/dL (7-18) Creatinine 1.0 MG/DL (0.55-1.30) 0.9 MG/DL (0.55-1.30) Estimat Glomerular Filtration Rate 53.3 mL/min (>60) > 60 mL/min (>60) Glucose Level 143 MG/DL (74-106) 158 MG/DL (74-106) Calcium Level 8.7 MG/DL (8.5-10.1) 8.7 MG/DL (8.5-10.1) POC Whole Blood Glucose 128 MG/DL (74-106) Arterial Blood pH 7.371 (7.350-7.450) Arterial Blood Partial Pressure CO2 58.1 mmHg (35.0-45.0) Arterial Blood Partial Pressure O2 96.7 mmHg (75.0-100.0) Arterial Blood HCO3 32.9 mmol/L (22.0-26.0) Arterial Blood Oxygen Saturation 96.7 % (95-100) Arterial Blood Base Excess 6.4 (-2-2) Raphael Test Positive Uric Acid 2.7 MG/DL (2.6-7.2) Phosphorus Level 3.3 MG/DL (2.5-4.9) Magnesium Level 2.3 MG/DL (1.8-2.4) Total Bilirubin 0.7 MG/DL (0.2-1.0) Aspartate Amino Transf (AST/SGOT) 20 U/L (15-37) Alanine Aminotransferase (ALT/SGPT) 34 U/L (12-78) Alkaline Phosphatase 32 U/L (46-116) Total Protein 6.1 G/DL (6.4-8.2) Albumin 2.9 G/DL (3.4-5.0) Globulin 3.2 g/dL Albumin/Globulin Ratio 0.9 (1.0-2.7) Test 12/24/19 08:07 Arterial Blood pH 7.410 (7.350-7.450) Arterial Blood Partial Pressure CO2 53.2 mmHg (35.0-45.0) Arterial Blood Partial Pressure O2 88.1 mmHg (75.0-100.0) Arterial Blood HCO3 33.0 mmol/L (22.0-26.0) Arterial Blood Oxygen Saturation 95.7 % (95-100) Arterial Blood Base Excess 7.2 (-2-2) Raphael Test Positive Height (Feet): 5 Height (Inches): 7.00 Weight (Pounds): 226 Objective Vitals: reviewed General: NAD HEENT: nc, at ++ogt Neck: supple ++intubated Chest: decreased breath sounds bilaterally Cardiovascular: RRR, no s3, s4 Abdomen: soft, nontender, nd Extremities: 1-2 + edema, scd's Neuro: nonverbal : Frank Kelly MD Dec 24, 2019 11:59
--- NOTE | 2019-12-24 12:00 | NUR ---
NURSE NOTES: Repositioned patient; remains on BiPAP at this time, saturating 100% and no distress. Afebrile. Awaiting for xray to confirm NGT placement. Will continue to monitor.
--- NOTE | 2019-12-24 14:00 | NUR ---
NURSE NOTES: Repositioned patient; restraints care provided. No distress at this time. Will continue to monitor.
--- NOTE | 2019-12-24 14:13 | Pulmonology Progress Note ---
Subjective ROS Limited/Unobtainable: Yes Interval Events: Extubated 12/21/19; now on BiPAP Constitutional: Denies: fever HEENT: Repors: no symptoms Respiratory: Reports: no symptoms Cardiovascular: Reports: no symptoms Gastrointestinal/Abdominal: Reports: no symptoms Genitourinary: Reports: no symptoms Allergies: Coded Allergies: LITHIUM (Verified Allergy, Unknown, 02/07/19) All Systems: reviewed and negative except above Objective Last 24 Hour Vital Signs Date Time Temp Pulse Resp B/P (MAP) Pulse Ox O2 Delivery O2 Flow Rate FiO2 12/24/19 13:00 85 20 143/55 (84) 12/24/19 12:00 Bi-pap 12/24/19 12:00 50 12/24/19 12:00 85 12/24/19 12:00 98.5 85 25 156/66 (96) 99 12/24/19 11:27 76 14 100 50 12/24/19 11:00 80 23 148/61 (90) 100 12/24/19 10:00 76 17 141/59 (86) 99 12/24/19 09:00 74 21 127/53 (77) 99 12/24/19 08:30 82 21 114/44 (67) 12/24/19 08:00 98.0 85 25 157/74 (101) 97 12/24/19 08:00 50 12/24/19 08:00 83 12/24/19 08:00 Bi-pap 12/24/19 07:27 81 19 100 50 12/24/19 07:00 84 25 150/42 (78) 98 12/24/19 06:00 77 26 138/62 (87) 99 12/24/19 05:00 80 25 159/71 (100) 99 12/24/19 04:00 98.0 79 24 149/66 (93) 99 12/24/19 04:00 87 12/24/19 04:00 50 12/24/19 04:00 Bi-pap 12/24/19 03:30 78 16 97 50 12/24/19 03:00 80 26 144/64 (90) 99 12/24/19 02:00 86 23 130/100 (110) 97 12/24/19 01:47 167/66 12/24/19 01:00 82 32 158/69 (98) 98 12/24/19 00:30 85 34 158/70 (99) 97 12/24/19 00:00 Bi-pap 12/24/19 00:00 98.5 82 34 149/68 (95) 97 12/24/19 00:00 85 12/24/19 00:00 50 12/23/19 23:30 91 27 98 50 12/23/19 23:00 81 25 139/67 (91) 98 12/23/19 22:30 83 23 155/68 (97) 98 12/23/19 22:00 85 26 158/80 (106) 98 12/23/19 21:30 81 29 149/71 (97) 97 12/23/19 21:00 78 25 136/56 (82) 98 12/23/19 20:00 81 12/23/19 20:00 Bi-pap 12/23/19 20:00 50 12/23/19 20:00 98.0 88 23 153/73 (99) 98 12/23/19 19:30 86 29 99 50 12/23/19 19:00 79 24 140/59 (86) 100 12/23/19 18:00 95 28 131/104 (113) 97 12/23/19 17:00 80 25 141/57 (85) 100 12/23/19 16:00 74 12/23/19 16:00 Bi-pap 12/23/19 16:00 50 12/23/19 16:00 97.6 84 27 151/66 (94) 99 12/23/19 15:30 88 26 99 50 12/23/19 15:00 85 26 151/64 (93) 100 Intake and Output 12/23/19 12/24/19 19:00 07:00 Intake Total 569.0 ml 757.54278 ml Output Total 820 ml 1025 ml Balance -251.0 ml -267.31874 ml Intake Oral 300 ml IV Total 269.0 ml 757.19444 ml Tube Feeding 0 ml 0 ml Output Urine Total 820 ml 1025 ml General Appearance: no acute distress Respiratory: chest wall non-tender, lungs clear Cardiovascular: normal peripheral pulses, normal rate Abdomen: normal bowel sounds Laboratory Tests 12/24/19 05:55: White Blood Count 8.3, Red Blood Count 2.95L, Hemoglobin 9.5L, Hematocrit 30.8L , Mean Corpuscular Volume 104H, Mean Corpuscular Hemoglobin 32.4H, Mean Corpuscular Hemoglobin Concent 31.0L, Red Cell Distribution Width 13.3, Platelet Count 181, Mean Platelet Volume 6.3L, Neutrophils (%) (Auto) 82.4H, Lymphocytes (%) (Auto) 12.1L, Monocytes (%) (Auto) 5.1, Eosinophils (%) (Auto) 0.1, Basophils (%) (Auto) 0.3, Sodium Level 146H, Potassium Level 4.5, Chloride Level 107, Carbon Dioxide Level 37H, Anion Gap 2L, Blood Urea Nitrogen 31H, Creatinine 0.9, Estimat Glomerular Filtration Rate > 60, Glucose Level 158H, Uric Acid 2.7, Calcium Level 8.7, Phosphorus Level 3.3, Magnesium Level 2.3, Total Bilirubin 0.7, Aspartate Amino Transf (AST/SGOT) 20, Alanine Aminotransferase (ALT/SGPT) 34, Alkaline Phosphatase 32L, Total Protein 6.1L, Albumin 2.9L, Globulin 3.2, Albumin/Globulin Ratio 0.9L 12/24/19 08:07: Arterial Blood pH 7.410, Arterial Blood Partial Pressure CO2 53.2H, Arterial Blood Partial Pressure O2 88.1, Arterial Blood HCO3 33.0H, Arterial Blood Oxygen Saturation 95.7, Arterial Blood Base Excess 7.2H, Raphael Test Positive Current Medications Medications (Trade) Dose Ordered Sig/Angie Route PRN Reason Start Time Stop Time Status Last Admin Dose Admin Acetaminophen (Tylenol) 650 mg Q6H PRN ORAL Mild Pain (Pain Scale 1-3) 12/12/19 12:30 01/11/20 12:29 12/22/19 20:56 Acetaminophen (Tylenol) 1,000 mg Q6H PRN ORAL MODERATE PAIN 12/12/19 12:30 01/11/20 12:29 Amantadine HCl (Symmetrel) 100 mg TWICE A DAY ORAL 12/22/19 18:00 01/11/20 08:59 12/24/19 08:40 Aspirin (ASA) 324 mg DAILY ORAL 12/23/19 09:00 02/04/20 08:59 12/24/19 08:41 Atorvastatin Calcium (Lipitor) 10 mg BEDTIME ORAL 12/22/19 21:00 9/29/20 20:59 12/23/19 20:19 Calcium Carbonate (Os-Octavio) 500 mg THREE TIMES A DAY ORAL 12/22/19 13:00 03/20/20 17:59 12/24/19 08:41 Clonidine HCl (Catapres Tab) 0.1 mg Q6H PRN GT For high BP over 160 systolic 12/15/19 16:30 03/11/20 12:30 12/24/19 01:47 Dextrose 1,000 ml @ 50 mls/hr Q20H IV 12/22/19 09:00 01/21/20 08:59 12/24/19 00:09 Dextrose (Dextrose 50%) 25 ml Q30M PRN IV Hypoglycemia 12/13/19 07:15 03/12/20 07:14 Dextrose (Dextrose 50%) 50 ml Q30M PRN IV Hypoglycemia 12/13/19 07:15 03/12/20 07:14 Divalproex Sodium (Depakote) 250 mg EVERY 12 HOURS ORAL 12/22/19 21:00 01/12/20 20:59 12/24/19 08:41 Docusate Sodium (Colace) 100 mg TWICE A DAY ORAL 12/22/19 18:00 01/14/20 17:59 12/24/19 08:40 Fentanyl Citrate 250 ml @ 0 mls/hr Q24H IV 12/18/19 20:53 03/17/20 20:52 12/19/19 20:56 Insulin Aspart (NovoLOG) EVERY 6 HOURS SUBQ 12/13/19 12:00 03/12/20 11:59 12/24/19 11:40 Levothyroxine Sodium (Synthroid) 75 mcg DAILY IV 12/13/19 09:00 01/11/20 09:29 12/24/19 09:15 Methylprednisolone Sodium Succinate (Solu-MEDROL) 20 mg EVERY 6 HOURS IVP 12/22/19 12:00 03/18/20 11:59 12/24/19 11:37 Nitroglycerin (Ntg) 0.4 mg Q5MIN X 3 DOSES PRN SL CHEST PAIN 12/12/19 12:00 01/10/20 21:44 Pantoprazole (Protonix) 40 mg EVERY 12 HOURS IVP 12/14/19 09:00 01/13/20 08:59 12/24/19 08:40 Phosphorus (Phospha 250 Neutral) 250 mg THREE TIMES A DAY ORAL 12/22/19 13:00 01/14/20 08:59 12/24/19 08:41 Piperacillin Sod/ Tazobactam Sod 3.375 gm/Sodium Chloride 110 ml @ 27.5 mls/hr EVERY 8 HOURS IVPB 12/19/19 14:00 12/28/19 13:59 12/24/19 05:09 Polyethylene Glycol (Miralax) 17 gm BEDTIME ORAL 12/22/19 21:00 01/18/20 20:59 12/22/19 20:49 Quetiapine Fumarate (SEROqueL) 50 mg Q12HR ORAL 12/22/19 21:00 02/05/20 20:59 12/24/19 08:40 Assessment/Plan Assessment/Plan IMPRESSION: 1. Respiratory failure. Now on BiPAP 2. Has healthcare-associated pneumonia; is negative for COVID-19. 3. Psych disorder. 4. Obesity. 5. Hypertension. 6. Hypernatremia DISCUSSION: Continue broad spectrum antibiotics. Will dc olanzepine Has negative COVID-19 swab. Switched to Seroquel Now on D5W Emerita Fan Omar Syed MD Dec 24, 2019 14:13
--- NOTE | 2019-12-24 15:09 | NUR ---
CASE MANAGEMENT: REVIEW SI: ACUTE RESPIRATORY FAILURE . PNA T 98.5 HR 85 RR 25 BP 141/55 SAT 99% BIPAP FIO2 50 H/H 9.5/30.8 NA 146 GLUCOSE 158 ABG: PH 7.410 PCO2 53.2 PO2 88.1 HCO3 33.0 SAT 95.7 IS: FENTANYL IV Q24HR SOLU MEDROL IV Q6HR ZOSYN IV Q8HR ST EVAL ICU STATUS DCP: PATIENT IS FROM [facility]
--- NOTE | 2019-12-24 15:11 | Diagnostic Imaging Report ---
Indication: Post nasogastric tube placement Technique: Supine view of the upper abdomen Comparison: 12/18/2019 Findings: There is a again demonstrated a nasogastric tube, tip of which projects at the level of the gastric body, proximal port well below the gastroesophageal junction. The visualized bowel gas appears unremarkable Impression: Satisfactory nasogastric tube placement
--- NOTE | 2019-12-24 16:00 | NUR ---
NURSE NOTES: Patient asleep, remains on BiPAP; no distress noted. Will continue to monitor.
--- NOTE | 2019-12-24 18:00 | NUR ---
NURSE NOTES: Complete bed bad given to patient. TF infusing at 20ml/hr, gastric residual <5ml/hr. HOB remains elevated. Patient remains on BiPAP, tolerating well, SpO2 100%. No BM noted at this time - Dr Vidal notified and made aware, left patient clean and dry. Restraints released and reapplied. Safety precautions in place. Will continue to monitor.
[2019-12-24] MEDS ORDERED: Miralax 17gm pkt ORAL PRN (19:00)
--- NOTE | 2019-12-24 19:26 | NUR ---
HAND-OFF: Report given to DARREL Winchester. Endorsed plan of care.
--- NOTE | 2019-12-24 20:00 | NUR ---
NURSE NOTES: received report from tapan leonard pt on b- pap 28/11 on 50% fio2 o2 sat 96% no acute resp distress note iv site good on brendan soft wrest restraint nan complaint tolerating tube feeding rate >30cc/hr
[2019-12-24] MEDS: fentaNYL 2500mcg/NS 250ml 250 ML IV SCH (20:50)
[2019-12-24] MEDS: Miralax 17gm pkt ORAL SCH (20:51)
--- NOTE | 2019-12-24 20:59 | General Progress Note ---
Assessment/Plan Problem List: (1) Dyspnea ICD Codes: R06.00 - Dyspnea, unspecified SNOMED: 412294858 (2) Hypothyroidism ICD Codes: E03.9 - Hypothyroidism, unspecified SNOMED: 34232719 (3) Obese ICD Codes: E66.9 - Obesity, unspecified SNOMED: 774502763, 707439372 (4) Psychosis ICD Codes: F29 - Unspecified psychosis not due to a substance or known physiological condition SNOMED: 37749376 (5) Respiratory failure ICD Codes: J96.90 - Respiratory failure, unspecified, unspecified whether with hypoxia or hypercapnia SNOMED: 398347075 (6) Respiratory distress ICD Codes: R06.03 - Acute respiratory distress SNOMED: 858179212 (7) Dyspnea ICD Codes: R06.00 - Dyspnea, unspecified SNOMED: 870935245 (8) Pneumonia ICD Codes: J18.9 - Pneumonia, unspecified organism SNOMED: 237463934 (9) Acute and chronic respiratory failure ICD Codes: J96.20 - Acute and chronic respiratory failure, unspecified whether with hypoxia or hypercapnia SNOMED: 15679911 (10) Diabetes mellitus type 2 in nonobese ICD Codes: E11.9 - Type 2 diabetes mellitus without complications SNOMED: 440054463 (11) CHF (congestive heart failure) ICD Codes: I50.9 - Heart failure, unspecified SNOMED: 45400868 Qualifiers: Qualified Codes: I50.9 - Heart failure, unspecified (12) Hypoxia ICD Codes: R09.02 - Hypoxemia SNOMED: 449981868 (13) Elevated d-dimer ICD Codes: R79.89 - Other specified abnormal findings of blood chemistry SNOMED: 200101860 (14) Schizophrenia ICD Codes: F20.9 - Schizophrenia, unspecified SNOMED: 34233506 (15) Parkinson disease ICD Codes: G20 - Parkinson's disease SNOMED: 40366187 Status: progressing, unchanged Assessment/Plan: no wheezing bipap supportive rx afebrile psych pt chf covid negative pleural effusion Subjective ROS Limited/Unobtainable: Yes Allergies: Coded Allergies: LITHIUM (Verified Allergy, Unknown, 02/07/19) Objective Last 24 Hour Vital Signs Date Time Temp Pulse Resp B/P (MAP) Pulse Ox O2 Delivery O2 Flow Rate FiO2 7/13/20 20:03 81 16 100 50 12/24/19 19:00 82 21 148/56 (86) 100 12/24/19 18:00 98.5 82 24 152/52 (85) 100 12/24/19 17:00 79 22 146/59 (88) 100 12/24/19 16:00 80 22 152/64 (93) 100 12/24/19 16:00 50 12/24/19 16:00 Bi-pap 12/24/19 16:00 80 12/24/19 15:28 82 18 100 50 12/24/19 15:00 75 22 138/53 (81) 100 12/24/19 14:00 80 25 141/53 (82) 99 12/24/19 13:00 85 20 143/55 (84) 12/24/19 12:00 Bi-pap 12/24/19 12:00 50 12/24/19 12:00 85 12/24/19 12:00 98.5 85 25 156/66 (96) 99 12/24/19 11:27 76 14 100 50 12/24/19 11:00 80 23 148/61 (90) 100 12/24/19 10:00 76 17 141/59 (86) 99 12/24/19 09:00 74 21 127/53 (77) 99 12/24/19 08:30 82 21 114/44 (67) 12/24/19 08:00 98.0 85 25 157/74 (101) 97 12/24/19 08:00 50 12/24/19 08:00 83 12/24/19 08:00 Bi-pap 12/24/19 07:27 81 19 100 50 12/24/19 07:00 84 25 150/42 (78) 98 12/24/19 06:00 77 26 138/62 (87) 99 12/24/19 05:00 80 25 159/71 (100) 99 12/24/19 04:00 98.0 79 24 149/66 (93) 99 12/24/19 04:00 87 12/24/19 04:00 50 12/24/19 04:00 Bi-pap 12/24/19 03:30 78 16 97 50 12/24/19 03:00 80 26 144/64 (90) 99 12/24/19 02:00 86 23 130/100 (110) 97 12/24/19 01:47 167/66 12/24/19 01:00 82 32 158/69 (98) 98 12/24/19 00:30 85 34 158/70 (99) 97 12/24/19 00:00 Bi-pap 12/24/19 00:00 98.5 82 34 149/68 (95) 97 12/24/19 00:00 85 12/24/19 00:00 50 12/23/19 23:30 91 27 98 50 12/23/19 23:00 81 25 139/67 (91) 98 12/23/19 22:30 83 23 155/68 (97) 98 12/23/19 22:00 85 26 158/80 (106) 98 12/23/19 21:30 81 29 149/71 (97) 97 12/23/19 21:00 78 25 136/56 (82) 98 Intake and Output 12/23/19 12/24/19 19:00 07:00 Intake Total 569.0 ml 757.01442 ml Output Total 820 ml 1025 ml Balance -251.0 ml -267.77027 ml Intake Oral 300 ml IV Total 269.0 ml 757.50667 ml Tube Feeding 0 ml 0 ml Output Urine Total 820 ml 1025 ml Laboratory Tests 12/24/19 05:55: White Blood Count 8.3, Red Blood Count 2.95L, Hemoglobin 9.5L, Hematocrit 30.8L , Mean Corpuscular Volume 104H, Mean Corpuscular Hemoglobin 32.4H, Mean Corpuscular Hemoglobin Concent 31.0L, Red Cell Distribution Width 13.3, Platelet Count 181, Mean Platelet Volume 6.3L, Neutrophils (%) (Auto) 82.4H, Lymphocytes (%) (Auto) 12.1L, Monocytes (%) (Auto) 5.1, Eosinophils (%) (Auto) 0.1, Basophils (%) (Auto) 0.3, Sodium Level 146H, Potassium Level 4.5, Chloride Level 107, Carbon Dioxide Level 37H, Anion Gap 2L, Blood Urea Nitrogen 31H, Creatinine 0.9, Estimat Glomerular Filtration Rate > 60, Glucose Level 158H, Uric Acid 2.7, Calcium Level 8.7, Phosphorus Level 3.3, Magnesium Level 2.3, Total Bilirubin 0.7, Aspartate Amino Transf (AST/SGOT) 20, Alanine Aminotransferase (ALT/SGPT) 34, Alkaline Phosphatase 32L, Total Protein 6.1L, Albumin 2.9L, Globulin 3.2, Albumin/Globulin Ratio 0.9L 12/24/19 08:07: Arterial Blood pH 7.410, Arterial Blood Partial Pressure CO2 53.2H, Arterial Blood Partial Pressure O2 88.1, Arterial Blood HCO3 33.0H, Arterial Blood Oxygen Saturation 95.7, Arterial Blood Base Excess 7.2H, Raphael Test Positive Height (Feet): 5 Height (Inches): 7.00 Weight (Pounds): 226 Dani Perera MD Dec 24, 2019 20:59
--- NOTE | 2019-12-24 22:00 | NUR ---
NURSE NOTES: reposition and suction
[2019-12-25] VITALS (24 sets, daily range): BP systolic 126–155; BP diastolic 47–75
--- NOTE | 2019-12-25 | NUR ---
NURSE NOTES: bs 126 no coverage
[2019-12-25] MEDS: Solu-MEDROL 40mg Inj IVP SCH ×5 (00:11→23:39)
--- NOTE | 2019-12-25 02:00 | NUR ---
NURSE NOTES: no acute resp destress distress
--- NOTE | 2019-12-25 04:00 | NUR ---
NURSE NOTES: complete bed bath oral care and back care done
[2019-12-25] MEDS: Piperacillin/Tazobactam 3.375 GM in NS 110 ML IVPB SCH (05:37)
[2019-12-25] MEDS: NovoLOG Insulin Flexpen SUBQ SCH ×5 (05:42→23:40)
--- NOTE | 2019-12-25 06:37 | NUR ---
NURSE NOTES: bs159 insulin coverage given as order
--- NOTE | 2019-12-25 06:37 | General Progress Note ---
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 - Other specified diabetes mellitus without complications SNOMED: 448341615 (2) Parkinson disease ICD Codes: G20 - Parkinson's disease SNOMED: 26288266 (3) Schizophrenia ICD Codes: F20.9 - Schizophrenia, unspecified SNOMED: 84870474 (4) Hypertension ICD Codes: I10 - Essential (primary) hypertension SNOMED: 53522187 (5) Respiratory failure ICD Codes: J96.90 - Respiratory failure, unspecified, unspecified whether with hypoxia or hypercapnia SNOMED: 117233971 (6) Hypothyroidism ICD Codes: E03.9 - Hypothyroidism, unspecified SNOMED: 72257363 Status: progressing, unchanged Assessment/Plan: repeat TSH, free T4 continue Levothyroxine 75 mcg IV daily for now continue Novolog sliding scale every 6 hours hypoglycemia protocol in order Subjective ROS Limited/Unobtainable: Yes Allergies: Coded Allergies: LITHIUM (Verified Allergy, Unknown, 02/07/19) Subjective events noted in ICU on BiPAP on TF glucose values are stable Item Value Date Time Bedside Blood Glucose 156 mg/dl H 12/25/19 0542 Bedside Blood Glucose 126 mg/dl H 12/25/19 0000 Bedside Blood Glucose 146 mg/dl H 12/24/19 1742 Bedside Blood Glucose 140 mg/dl H 12/24/19 1200 Bedside Blood Glucose 159 mg/dl H 12/24/19 0515 Bedside Blood Glucose 122 mg/dl H 12/24/19 0000 Objective Last 24 Hour Vital Signs Date Time Temp Pulse Resp B/P (MAP) Pulse Ox O2 Delivery O2 Flow Rate FiO2 12/25/19 06:00 80 21 140/52 (81) 12/25/19 06:00 80 21 140/52 (81) 12/25/19 05:09 78 12/25/19 05:08 Bi-pap 12/25/19 05:00 83 21 149/61 (90) 12/25/19 04:00 97.4 90 25 149/61 (90) 67 12/25/19 04:00 Bi-pap 12/25/19 03:20 81 16 97 50 12/25/19 03:00 92 22 155/54 (87) 100 12/25/19 02:00 75 22 147/56 (86) 99 12/25/19 01:32 50 12/25/19 01:00 77 21 144/52 (82) 96 12/25/19 00:00 Bi-pap 12/25/19 00:00 82 12/25/19 00:00 98.2 76 23 144/58 (86) 99 12/25/19 00:00 50 12/24/19 23:43 80 17 98 50 12/24/19 23:00 82 27 146/59 (88) 98 12/24/19 22:00 79 24 126/49 (74) 98 12/24/19 21:00 84 24 151/64 (93) 98 12/24/19 20:03 81 16 100 50 12/24/19 20:00 Bi-pap 12/24/19 20:00 98.4 81 23 145/59 (87) 99 12/24/19 20:00 50 12/24/19 20:00 86 12/24/19 19:00 82 21 148/56 (86) 100 12/24/19 18:00 98.5 82 24 152/52 (85) 100 12/24/19 17:00 79 22 146/59 (88) 100 12/24/19 16:00 80 22 152/64 (93) 100 12/24/19 16:00 50 12/24/19 16:00 Bi-pap 12/24/19 16:00 80 12/24/19 15:28 82 18 100 50 12/24/19 15:00 75 22 138/53 (81) 100 12/24/19 14:00 80 25 141/53 (82) 99 12/24/19 13:00 85 20 143/55 (84) 12/24/19 12:00 Bi-pap 12/24/19 12:00 50 12/24/19 12:00 85 12/24/19 12:00 98.5 85 25 156/66 (96) 99 12/24/19 11:27 76 14 100 50 12/24/19 11:00 80 23 148/61 (90) 100 12/24/19 10:00 76 17 141/59 (86) 99 12/24/19 09:00 74 21 127/53 (77) 99 12/24/19 08:30 82 21 114/44 (67) 12/24/19 08:00 98.0 85 25 157/74 (101) 97 7/13/20 08:00 50 12/24/19 08:00 83 12/24/19 08:00 Bi-pap 12/24/19 07:27 81 19 100 50 12/24/19 07:00 84 25 150/42 (78) 98 Intake and Output 12/24/19 12/25/19 19:00 07:00 Intake Total 885.58192 ml 1045.0 ml Output Total 815 ml 845 ml Balance 70.30454 ml 200.0 ml Intake Oral 10 ml IV Total 745.02524 ml 610.0 ml Tube Feeding 80 ml 435 ml Other 50 ml Output Urine Total 815 ml 845 ml Laboratory Tests 12/24/19 08:07: Arterial Blood pH 7.410, Arterial Blood Partial Pressure CO2 53.2H, Arterial Blood Partial Pressure O2 88.1, Arterial Blood HCO3 33.0H, Arterial Blood Oxygen Saturation 95.7, Arterial Blood Base Excess 7.2H, Rahpael Test Positive Height (Feet): 5 Height (Inches): 7.00 Weight (Pounds): 226 General Appearance: no apparent distress Neck: normal alignment Cardiovascular: tachycardia Respiratory/Chest: decreased breath sounds Abdomen: normal bowel sounds Objective Current Medications Medications (Trade) Dose Ordered Sig/Angie Route PRN Reason Start Time Stop Time Status Last Admin Dose Admin Acetaminophen (Tylenol) 650 mg Q6H PRN ORAL Mild Pain (Pain Scale 1-3) 12/12/19 12:30 01/11/20 12:29 12/22/19 20:56 Acetaminophen (Tylenol) 1,000 mg Q6H PRN ORAL MODERATE PAIN 12/12/19 12:30 01/11/20 12:29 Amantadine HCl (Symmetrel) 100 mg TWICE A DAY ORAL 12/22/19 18:00 01/11/20 08:59 12/24/19 17:17 Aspirin (ASA) 324 mg DAILY ORAL 12/23/19 09:00 02/04/20 08:59 12/24/19 08:41 Atorvastatin Calcium (Lipitor) 10 mg BEDTIME ORAL 12/22/19 21:00 03/11/20 20:59 12/24/19 20:51 Calcium Carbonate (Os-Octavio) 500 mg THREE TIMES A DAY ORAL 12/22/19 13:00 03/20/20 17:59 12/24/19 17:17 Clonidine HCl (Catapres Tab) 0.1 mg Q6H PRN GT For high BP over 160 systolic 12/15/19 16:30 03/11/20 12:30 12/24/19 01:47 Dextrose 1,000 ml @ 50 mls/hr Q20H IV 12/22/19 09:00 01/21/20 08:59 12/24/19 17:30 Dextrose (Dextrose 50%) 25 ml Q30M PRN IV Hypoglycemia 12/13/19 07:15 03/12/20 07:14 Dextrose (Dextrose 50%) 50 ml Q30M PRN IV Hypoglycemia 12/13/19 07:15 03/12/20 07:14 Divalproex Sodium (Depakote) 250 mg EVERY 12 HOURS ORAL 12/22/19 21:00 01/12/20 20:59 12/24/19 20:53 Docusate Sodium (Colace) 100 mg TWICE A DAY ORAL 12/22/19 18:00 01/14/20 17:59 12/24/19 17:17 Fentanyl Citrate 250 ml @ 0 mls/hr Q24H IV 12/18/19 20:53 03/17/20 20:52 12/19/19 20:56 Insulin Aspart (NovoLOG) EVERY 6 HOURS SUBQ 12/13/19 12:00 03/12/20 11:59 12/25/19 05:42 Lactulose (Cephulac) 20 gm BID ORAL 12/25/19 09:00 01/24/20 08:59 Levothyroxine Sodium (Synthroid) 75 mcg DAILY IV 12/13/19 09:00 01/11/20 09:29 12/24/19 09:15 Methylprednisolone Sodium Succinate (Solu-MEDROL) 20 mg EVERY 6 HOURS IVP 12/22/19 12:00 03/18/20 11:59 12/25/19 05:36 Nitroglycerin (Ntg) 0.4 mg Q5MIN X 3 DOSES PRN SL CHEST PAIN 12/12/19 12:00 01/10/20 21:44 Pantoprazole (Protonix) 40 mg EVERY 12 HOURS IVP 12/14/19 09:00 01/13/20 08:59 12/24/19 20:50 Phosphorus (Phospha 250 Neutral) 250 mg THREE TIMES A DAY ORAL 12/22/19 13:00 01/14/20 08:59 12/24/19 17:17 Piperacillin Sod/ Tazobactam Sod 3.375 gm/Sodium Chloride 110 ml @ 27.5 mls/hr EVERY 8 HOURS IVPB 12/19/19 14:00 12/28/19 13:59 12/25/19 05:37 Polyethylene Glycol (Miralax) 17 gm BEDTIME ORAL 12/22/19 21:00 01/18/20 20:59 12/24/19 20:51 Polyethylene Glycol (Miralax) 17 gm DAILYPRN PRN ORAL Constipation 12/24/19 19:00 01/23/20 18:59 Quetiapine Fumarate (SEROqueL) 50 mg Q12HR ORAL 12/22/19 21:00 02/05/20 20:59 12/24/19 20:51 Jabari Adams MD Dec 25, 2019 06:37
--- NOTE | 2019-12-25 07:38 | NUR ---
HAND-OFF: Report given to ania rn using sbar.
--- NOTE | 2019-12-25 08:00 | NUR ---
NURSE NOTES: Received pt from [place]. Pt is on BIPAP with settings 18/6 FIO2 50% at 100% O2Sat. Pt follows simple commands. However pt is restless, attempting to reach/pull BIPAP off face. Bilateral soft wrist restraint are in place for pt safety with skin integrity at restrain site within normal limits. 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 Pt has left nare NGT with feeding Vital AF infusing at 45ml/hour. Ace catheter is in place, draining clear/yellow urine to gravity. Pt has peripheral IV access on left FA#22 G, infusing D5W at 50ml/hour. Sacral redness noted, covered with optifoam dressing. Pt is on pressure release mattress. HOB at 30degrees, bed locked, in lowest position, three side rails up. Will continue with plan of care.
--- NOTE | 2019-12-25 08:11 | NUR ---
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 CURRENT TF:Vital 1.2 @50 -> NGT feeds [PO DIET RECOMMENDATIONS: LOW NA/ CCHO MED (texture per MERCHANDISE PRESENTATION MANAGER)] ENTERAL NUTRITION RECOMMENDATIONS: Maintain Vital 1.2 @50ml/hr x24 hrs to provide 1200ml, 1440 kcal, 90g pro, 973ml free H2O - Maintain TF as tolerated if pt is unable to transition to oral diet at this time d/t resp status (on bipap) - Flush per MD, HOB over 30 degrees ADDITIONAL RECOMMENDATIONS: * Per SNF: HT=68" [id number] (12/04/19) * Monitor lytes, replete as needed * Rec added D5 IVF while pt is NPO to prevent hypoglycemia * Monitor Na -> trending up, pt on NS IVF, rec to adjust IVF -> On D5% @50, BG mid 100's * Monitor BMs in EMR: no recent record of BM- on lactulose .
[2019-12-25] MEDS: Lactulose 20gm/30ml UDC ORAL SCH ×2 (08:56→17:42)
[2019-12-25] MEDS: Os-Cal (Oyster Shell) 500mg tab ORAL SCH ×3 (08:56→17:41)
[2019-12-25] MEDS: Aspirin Baby 81mg ORAL SCH (08:56)
[2019-12-25] MEDS: Amantadine 100mg cap ORAL SCH ×2 (08:56→17:41)
[2019-12-25] MEDS: Pantoprazole Inj IVP SCH ×2 (08:56→20:30)
[2019-12-25] MEDS: Phospha 250 Neutral tab ORAL SCH ×3 (08:58→17:41)
[2019-12-25] MEDS: Docusate 100mg cap ORAL SCH ×2 (08:58→17:41)
[2019-12-25 09:23] LABS: BASOPHILS % (AUTO) 0.7 % (0.0-2.0); EOSINOPHILS % (AUTO) 0.3 % (0.0-3.0); HEMATOCRIT 31.9 % (37.0-47.0); LYMPHOCYTES % (AUTO) 13.9 % (20.0-45.0); MEAN CORPUSCULAR VOLUME 102 FL (80-99); MONOCYTES % (AUTO) 5.8 % (1.0-10.0); NEUTROPHILS % (AUTO) 79.3 % (45.0-75.0); PLATELET COUNT 195 K/UL (150-450); RED BLOOD COUNT 3.14 M/UL (4.20-5.40); RED CELL DISTRIBUTION WIDTH 13.2 % (11.6-14.8); WHITE BLOOD COUNT 7.6 K/UL (4.8-10.8)
[2019-12-25 09:40] LABS: ANION GAP 4 mmol/L (5-15); BLOOD UREA NITROGEN 28 mg/dL (7-18); CALCIUM 7.8 MG/DL (8.5-10.1); CARBON DIOXIDE 37 MMOL/L (21-32); CHLORIDE 105 MMOL/L (98-107); CREATININE 0.8 MG/DL (0.55-1.30); POTASSIUM 4.2 MMOL/L (3.5-5.1); SODIUM 145 MMOL/L (136-145)
[2019-12-25 09:49] LABS: ALANINE AMINOTRANSFERASE 42 U/L (12-78); ALBUMIN 2.9 G/DL (3.4-5.0); ALKALINE PHOSPHATASE 32 U/L (46-116); ASPARTATE AMINO TRANSFERASE 26 U/L (15-37); BILIRUBIN,TOTAL 0.6 MG/DL (0.2-1.0)
--- NOTE | 2019-12-25 10:00 | NUR ---
NURSE NOTES: AM meds were administered. VS remain stable. Pt was cleaned and repositioned. Pt remains on Bipap, NGT feeding is currently off due to BIPAP, will speak with MD and verify regarding concurrent tube feeding order while pt is on BIPAP.
--- NOTE | 2019-12-25 10:06 | General Progress Note ---
Assessment/Plan Status: progressing, unchanged Assessment/Plan: Assessment - Resp failure - r/o COVID -- x 2 negative - COPD - HTN - Anemia - Abnormal LFT Recommendations - extubated now - Elevate HOB - abx - follow labs - f/u hepatitis serologies>>> neg -repeat labs - patient now on BIPAP. ? needs reintubation -plan NGTf Subjective ROS Limited/Unobtainable: No Allergies: Coded Allergies: LITHIUM (Verified Allergy, Unknown, 02/07/19) Objective Last 24 Hour Vital Signs Date Time Temp Pulse Resp B/P (MAP) Pulse Ox O2 Delivery O2 Flow Rate FiO2 12/25/19 07:24 80 16 100 45 12/25/19 06:00 80 21 140/52 (81) 12/25/19 06:00 80 21 140/52 (81) 12/25/19 05:09 78 12/25/19 05:08 Bi-pap 12/25/19 05:00 83 21 149/61 (90) 12/25/19 04:00 97.4 90 25 149/61 (90) 67 12/25/19 04:00 Bi-pap 12/25/19 03:20 81 16 97 50 12/25/19 03:00 92 22 155/54 (87) 100 12/25/19 02:00 75 22 147/56 (86) 99 12/25/19 01:32 50 12/25/19 01:00 77 21 144/52 (82) 96 12/25/19 00:00 Bi-pap 12/25/19 00:00 82 12/25/19 00:00 98.2 76 23 144/58 (86) 99 12/25/19 00:00 50 12/24/19 23:43 80 17 98 50 12/24/19 23:00 82 27 146/59 (88) 98 12/24/19 22:00 79 24 126/49 (74) 98 12/24/19 21:00 84 24 151/64 (93) 98 12/24/19 20:03 81 16 100 50 12/24/19 20:00 Bi-pap 12/24/19 20:00 98.4 81 23 145/59 (87) 99 12/24/19 20:00 50 12/24/19 20:00 86 12/24/19 19:00 82 21 148/56 (86) 100 12/24/19 18:00 98.5 82 24 152/52 (85) 100 12/24/19 17:00 79 22 146/59 (88) 100 12/24/19 16:00 80 22 152/64 (93) 100 12/24/19 16:00 50 12/24/19 16:00 Bi-pap 12/24/19 16:00 80 12/24/19 15:28 82 18 100 50 12/24/19 15:00 75 22 138/53 (81) 100 12/24/19 14:00 80 25 141/53 (82) 99 12/24/19 13:00 85 20 143/55 (84) 12/24/19 12:00 Bi-pap 12/24/19 12:00 50 12/24/19 12:00 85 12/24/19 12:00 98.5 85 25 156/66 (96) 99 12/24/19 11:27 76 14 100 50 12/24/19 11:00 80 23 148/61 (90) 100 12/24/19 10:00 76 17 141/59 (86) 99 Intake and Output 12/24/19 12/25/19 19:00 07:00 Intake Total 885.23832 ml 1095.0 ml Output Total 815 ml 845 ml Balance 70.13765 ml 250.0 ml Intake Oral 10 ml IV Total 745.60532 ml 660.0 ml Tube Feeding 80 ml 435 ml Other 50 ml Output Urine Total 815 ml 845 ml Laboratory Tests 12/25/19 08:55: White Blood Count 7.6, Red Blood Count 3.14L, Hemoglobin 10.0L, Hematocrit 31.9L , Mean Corpuscular Volume 102H, Mean Corpuscular Hemoglobin 31.9H, Mean Corpuscular Hemoglobin Concent 31.3L, Red Cell Distribution Width 13.2, Platelet Count 195, Mean Platelet Volume 7.0, Neutrophils (%) (Auto) 79.3H, Lymphocytes (%) (Auto) 13.9L, Monocytes (%) (Auto) 5.8, Eosinophils (%) (Auto) 0.3, Basophils (%) (Auto) 0.7, Sodium Level [Pending], Potassium Level [Pending] , Chloride Level [Pending], Carbon Dioxide Level [Pending], Blood Urea Nitrogen [Pending], Creatinine [Pending], Estimat Glomerular Filtration Rate [Pending], Glucose Level [Pending], Calcium Level [Pending], Total Bilirubin [Pending], Aspartate Amino Transf (AST/SGOT) [Pending], Alanine Aminotransferase (ALT/SGPT ) [Pending], Alkaline Phosphatase [Pending], Total Protein [Pending], Albumin [ Pending], Globulin [Pending], Thyroid Stimulating Hormone (TSH) [Pending], Free Thyroxine [Pending] Height (Feet): 5 Height (Inches): 7.00 Weight (Pounds): 230 General Appearance: no apparent distress EENT: normal ENT inspection Neck: supple Cardiovascular: tachycardia Respiratory/Chest: decreased breath sounds Abdomen: hypoactive bowel sounds Extremities: non-tender Kirk Vidal MD Dec 25, 2019 10:06
--- NOTE | 2019-12-25 10:27 | Infectious Diseases Prog Note ---
Assessment/Plan Assessment/Plan IMPRESSION: COPD exacerbation, Pneumonia, COID19 X 2: negative Acute respiratory failure with hypercapnia Dementia, Parkinson, Mitral valve regurgitation, Hypertension, Hypothyroidism. MRSA carrier RECOMMENDATION: Discontinue Zosyn Case was D/W RN Subjective ROS Limited/Unobtainable: Yes Neurologic: Reports: confusion, other - on restraint Allergies: Coded Allergies: LITHIUM (Verified Allergy, Unknown, 02/07/19) Objective Last 24 Hour Vital Signs Date Time Temp Pulse Resp B/P (MAP) Pulse Ox O2 Delivery O2 Flow Rate FiO2 12/25/19 10:00 79 19 141/47 (78) 96 12/25/19 09:00 83 22 138/62 (87) 100 12/25/19 08:00 98.5 79 18 135/51 (79) 12/25/19 08:00 45 12/25/19 07:24 80 16 100 45 12/25/19 07:00 79 20 134/47 (76) 98 12/25/19 06:00 80 21 140/52 (81) 12/25/19 06:00 80 21 140/52 (81) 12/25/19 05:09 78 12/25/19 05:08 Bi-pap 12/25/19 05:00 83 21 149/61 (90) 12/25/19 04:00 97.4 90 25 149/61 (90) 67 12/25/19 04:00 Bi-pap 12/25/19 03:20 81 16 97 50 12/25/19 03:00 92 22 155/54 (87) 100 12/25/19 02:00 75 22 147/56 (86) 99 12/25/19 01:32 50 12/25/19 01:00 77 21 144/52 (82) 96 12/25/19 00:00 Bi-pap 12/25/19 00:00 82 12/25/19 00:00 98.2 76 23 144/58 (86) 99 12/25/19 00:00 50 12/24/19 23:43 80 17 98 50 12/24/19 23:00 82 27 146/59 (88) 98 12/24/19 22:00 79 24 126/49 (74) 98 12/24/19 21:00 84 24 151/64 (93) 98 12/24/19 20:03 81 16 100 50 12/24/19 20:00 Bi-pap 12/24/19 20:00 98.4 81 23 145/59 (87) 99 12/24/19 20:00 50 12/24/19 20:00 86 12/24/19 19:00 82 21 148/56 (86) 100 12/24/19 18:00 98.5 82 24 152/52 (85) 100 12/24/19 17:00 79 22 146/59 (88) 100 12/24/19 16:00 80 22 152/64 (93) 100 12/24/19 16:00 50 12/24/19 16:00 Bi-pap 12/24/19 16:00 80 12/24/19 15:28 82 18 100 50 12/24/19 15:00 75 22 138/53 (81) 100 12/24/19 14:00 80 25 141/53 (82) 99 12/24/19 13:00 85 20 143/55 (84) 12/24/19 12:00 Bi-pap 12/24/19 12:00 50 12/24/19 12:00 85 12/24/19 12:00 98.5 85 25 156/66 (96) 99 12/24/19 11:27 76 14 100 50 12/24/19 11:00 80 23 148/61 (90) 100 Height (Feet): 5 Height (Inches): 7.00 Weight (Pounds): 230 HEENT: mucous membranes moist Respiratory/Chest: decreased breath sounds, other - on BIPAP Cardiovascular: normal rate Abdomen: soft, non tender, other - NG tube Extremities: other - hands edema Neurologic/Psychiatric: alert, responsive, disoriented Laboratory Tests Test 12/25/19 08:55 White Blood Count 7.6 K/UL (4.8-10.8) Red Blood Count 3.14 M/UL (4.20-5.40) L Hemoglobin 10.0 G/DL (12.0-16.0) L Hematocrit 31.9 % (37.0-47.0) L Mean Corpuscular Volume 102 FL (80-99) H Mean Corpuscular Hemoglobin 31.9 PG (27.0-31.0) H Mean Corpuscular Hemoglobin Concent 31.3 G/DL (32.0-36.0) L Red Cell Distribution Width 13.2 % (11.6-14.8) Platelet Count 195 K/UL (150-450) Mean Platelet Volume 7.0 FL (6.5-10.1) Neutrophils (%) (Auto) 79.3 % (45.0-75.0) H Lymphocytes (%) (Auto) 13.9 % (20.0-45.0) L Monocytes (%) (Auto) 5.8 % (1.0-10.0) Eosinophils (%) (Auto) 0.3 % (0.0-3.0) Basophils (%) (Auto) 0.7 % (0.0-2.0) Sodium Level 145 MMOL/L (136-145) Potassium Level 4.2 MMOL/L (3.5-5.1) Chloride Level 105 MMOL/L (98-107) Carbon Dioxide Level 37 MMOL/L (21-32) H Anion Gap 4 mmol/L (5-15) L Blood Urea Nitrogen 28 mg/dL (7-18) H Creatinine 0.8 MG/DL (0.55-1.30) Estimat Glomerular Filtration Rate > 60 mL/min (>60) Glucose Level 171 MG/DL (74-106) H Calcium Level 7.8 MG/DL (8.5-10.1) L Total Bilirubin 0.6 MG/DL (0.2-1.0) Aspartate Amino Transf (AST/SGOT) 26 U/L (15-37) Alanine Aminotransferase (ALT/SGPT) 42 U/L (12-78) Alkaline Phosphatase 32 U/L (46-116) L Total Protein 5.9 G/DL (6.4-8.2) L Albumin 2.9 G/DL (3.4-5.0) L Globulin 3.0 g/dL Albumin/Globulin Ratio 1.0 (1.0-2.7) Thyroid Stimulating Hormone (TSH) 14.841 uiU/mL (0.358-3.740) Free Thyroxine 0.62 NG/DL (0.76-1.46) L Current Medications Medications (Trade) Dose Ordered Sig/Angie Route PRN Reason Start Time Stop Time Status Last Admin Dose Admin Acetaminophen (Tylenol) 650 mg Q6H PRN ORAL Mild Pain (Pain Scale 1-3) 12/12/19 12:30 01/11/20 12:29 12/22/19 20:56 Acetaminophen (Tylenol) 1,000 mg Q6H PRN ORAL MODERATE PAIN 12/12/19 12:30 01/11/20 12:29 Amantadine HCl (Symmetrel) 100 mg TWICE A DAY ORAL 12/22/19 18:00 01/11/20 08:59 12/25/19 08:56 Aspirin (ASA) 324 mg DAILY ORAL 12/23/19 09:00 02/04/20 08:59 12/25/19 08:56 Atorvastatin Calcium (Lipitor) 10 mg BEDTIME ORAL 12/22/19 21:00 03/11/20 20:59 12/24/19 20:51 Calcium Carbonate (Os-Octavio) 500 mg THREE TIMES A DAY ORAL 12/22/19 13:00 03/20/20 17:59 12/25/19 08:56 Clonidine HCl (Catapres Tab) 0.1 mg Q6H PRN GT For high BP over 160 systolic 12/15/19 16:30 03/11/20 12:30 12/24/19 01:47 Dextrose 1,000 ml @ 50 mls/hr Q20H IV 12/22/19 09:00 01/21/20 08:59 12/24/19 17:30 Dextrose (Dextrose 50%) 25 ml Q30M PRN IV Hypoglycemia 12/13/19 07:15 03/12/20 07:14 Dextrose (Dextrose 50%) 50 ml Q30M PRN IV Hypoglycemia 12/13/19 07:15 03/12/20 07:14 Divalproex Sodium (Depakote) 250 mg EVERY 12 HOURS ORAL 12/22/19 21:00 01/12/20 20:59 12/25/19 08:58 Docusate Sodium (Colace) 100 mg TWICE A DAY ORAL 12/22/19 18:00 01/14/20 17:59 12/25/19 08:58 Fentanyl Citrate 250 ml @ 0 mls/hr Q24H IV 12/18/19 20:53 03/17/20 20:52 12/19/19 20:56 Insulin Aspart (NovoLOG) EVERY 6 HOURS SUBQ 12/13/19 12:00 03/12/20 11:59 12/25/19 05:42 Lactulose (Cephulac) 20 gm BID ORAL 12/25/19 09:00 01/24/20 08:59 12/25/19 08:56 Levothyroxine Sodium (Synthroid) 75 mcg DAILY IV 12/13/19 09:00 01/11/20 09:29 12/25/19 08:56 Methylprednisolone Sodium Succinate (Solu-MEDROL) 20 mg EVERY 6 HOURS IVP 12/22/19 12:00 03/18/20 11:59 12/25/19 05:36 Nitroglycerin (Ntg) 0.4 mg Q5MIN X 3 DOSES PRN SL CHEST PAIN 12/12/19 12:00 01/10/20 21:44 Pantoprazole (Protonix) 40 mg EVERY 12 HOURS IVP 12/14/19 09:00 01/13/20 08:59 12/25/19 08:56 Phosphorus (Phospha 250 Neutral) 250 mg THREE TIMES A DAY ORAL 12/22/19 13:00 01/14/20 08:59 12/25/19 08:58 Piperacillin Sod/ Tazobactam Sod 3.375 gm/Sodium Chloride 110 ml @ 27.5 mls/hr EVERY 8 HOURS IVPB 12/19/19 14:00 12/28/19 13:59 12/25/19 05:37 Polyethylene Glycol (Miralax) 17 gm BEDTIME ORAL 12/22/19 21:00 01/18/20 20:59 12/24/19 20:51 Polyethylene Glycol (Miralax) 17 gm DAILYPRN PRN ORAL Constipation 12/24/19 19:00 01/23/20 18:59 Quetiapine Fumarate (SEROqueL) 50 mg Q12HR ORAL 12/22/19 21:00 02/05/20 20:59 12/25/19 08:56 Lei Chan MD Dec 25, 2019 10:27
--- NOTE | 2019-12-25 10:49 | Hematology/Onc Progress Note ---
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 ( combination of moderate aortic regurgitation and severe mitral regurgitation) --> diuresis as per cards --> lasix last time # Severe ascending aortic dilatation --> per Dr Keke campbell # Hypertension # Parkinson disease # Hyperlipidemia # Hypothyroidism # Dementia # Obesity # Schizophrenia --> as per [facility] --> restraints # Dvt ppx lovenox sq/scd's Appreciate beauty consultant care and alexei Rn Subjective HEENT: Denies: no symptoms, eye pain, blurred vision, tearing, double vision, ear pain, ear discharge, nose pain, nose congestion, throat pain, throat swelling, mouth pain, mouth swelling, other Cardiovascular: Denies: no symptoms, chest pain, edema, irregular heart rate, lightheadedness, palpitations, syncope, other Respiratory: Denies: no symptoms, cough, shortness of breath, SOB with excertion, SOB at rest, sputum, wheezing, other Gastrointestinal/Abdominal: Denies: no symptoms, abdomen distended, abdominal pain, black stools, tarry stools, blood in stool, constipated, diarrhea, difficulty swallowing, nausea, poor appetite, poor fluid intake, rectal bleeding , vomiting, other Genitourinary: Denies: no symptoms, burning, discharge, frequency, flank pain, hematuria, incontinence, pain, urgency, other Neurologic/Psychiatric: Denies: no symptoms, anxiety, depressed, emotional problems, headache, numbness, paresthesia, pre-existing deficit, seizure, tingling, tremors, weakness, other Endocrine: Denies: no symptoms, excessive sweating, flushing, intolerance to cold, intolerance to heat, increased hunger, increased thirst, increased urine, unexplained weight gain, unexplained weight loss, other Hematologic/Lymphatic: Denies: no symptoms, anemia, easy bleeding, easy bruising, adenopathy, other Allergies: Coded Allergies: LITHIUM (Verified Allergy, Unknown, 02/07/19) Subjective 12/12 labs are reviewed, intubated, with og, somewhat responsive, dw rn 12/13 labs noted, hgb 7.8, tfs ok to start per gi 12/15 icu, restraints, no acute events, hep panel negative, sedated 12/16 no bleeding, in the icu, on abx, in restarints, sleepy, vent 12/17 is on vent, also is on abx, awake, with ogt 12/18 ng placed, hgb 9.6, no bleeding, no night sweats 12/19 labs reviewed, sedated, on vent, nob leeding, meds reviewed 12/20 remains on vent, audra bleeding, meds reviewed, no night sweats 12/22 hgb 9.5, to get zosyn x 1 more day, no night sweats meds reviewed 12/23 labs noted, no bleeding, with fm, no bleeding or night sweats 12/24 no bleeding, labs noted, no night sweats hgb 10, no hemolysis Objective Objective Current Medications Medications (Trade) Dose Ordered Sig/Angie Route PRN Reason Start Time Stop Time Status Last Admin Dose Admin Acetaminophen (Tylenol) 650 mg Q6H PRN ORAL Mild Pain (Pain Scale 1-3) 12/12/19 12:30 01/11/20 12:29 12/22/19 20:56 Acetaminophen (Tylenol) 1,000 mg Q6H PRN ORAL MODERATE PAIN 12/12/19 12:30 01/11/20 12:29 Amantadine HCl (Symmetrel) 100 mg TWICE A DAY ORAL 12/22/19 18:00 01/11/20 08:59 12/25/19 08:56 Aspirin (ASA) 324 mg DAILY ORAL 12/23/19 09:00 02/04/20 08:59 12/25/19 08:56 Atorvastatin Calcium (Lipitor) 10 mg BEDTIME ORAL 12/22/19 21:00 03/11/20 20:59 12/24/19 20:51 Calcium Carbonate (Os-Octavio) 500 mg THREE TIMES A DAY ORAL 12/22/19 13:00 03/20/20 17:59 12/25/19 08:56 Clonidine HCl (Catapres Tab) 0.1 mg Q6H PRN GT For high BP over 160 systolic 12/15/19 16:30 03/11/20 12:30 12/24/19 01:47 Dextrose 1,000 ml @ 50 mls/hr Q20H IV 12/22/19 09:00 01/21/20 08:59 12/24/19 17:30 Dextrose (Dextrose 50%) 25 ml Q30M PRN IV Hypoglycemia 12/13/19 07:15 03/12/20 07:14 Dextrose (Dextrose 50%) 50 ml Q30M PRN IV Hypoglycemia 12/13/19 07:15 03/12/20 07:14 Divalproex Sodium (Depakote) 250 mg EVERY 12 HOURS ORAL 12/22/19 21:00 01/12/20 20:59 12/25/19 08:58 Docusate Sodium (Colace) 100 mg TWICE A DAY ORAL 12/22/19 18:00 01/14/20 17:59 12/25/19 08:58 Fentanyl Citrate 250 ml @ 0 mls/hr Q24H IV 12/18/19 20:53 03/17/20 20:52 12/19/19 20:56 Insulin Aspart (NovoLOG) EVERY 6 HOURS SUBQ 12/13/19 12:00 03/12/20 11:59 12/25/19 05:42 Lactulose (Cephulac) 20 gm BID ORAL 12/25/19 09:00 01/24/20 08:59 12/25/19 08:56 Levothyroxine Sodium (Synthroid) 75 mcg DAILY IV 12/13/19 09:00 01/11/20 09:29 12/25/19 08:56 Methylprednisolone Sodium Succinate (Solu-MEDROL) 20 mg EVERY 6 HOURS IVP 12/22/19 12:00 03/18/20 11:59 12/25/19 05:36 Nitroglycerin (Ntg) 0.4 mg Q5MIN X 3 DOSES PRN SL CHEST PAIN 12/12/19 12:00 01/10/20 21:44 Pantoprazole (Protonix) 40 mg EVERY 12 HOURS IVP 12/14/19 09:00 01/13/20 08:59 12/25/19 08:56 Phosphorus (Phospha 250 Neutral) 250 mg THREE TIMES A DAY ORAL 12/22/19 13:00 01/14/20 08:59 12/25/19 08:58 Polyethylene Glycol (Miralax) 17 gm BEDTIME ORAL 12/22/19 21:00 01/18/20 20:59 12/24/19 20:51 Polyethylene Glycol (Miralax) 17 gm DAILYPRN PRN ORAL Constipation 12/24/19 19:00 01/23/20 18:59 Quetiapine Fumarate (SEROqueL) 50 mg Q12HR ORAL 12/22/19 21:00 02/05/20 20:59 12/25/19 08:56 Last 24 Hour Vital Signs Date Time Temp Pulse Resp B/P (MAP) Pulse Ox O2 Delivery O2 Flow Rate FiO2 12/25/19 10:00 79 19 141/47 (78) 96 12/25/19 09:00 83 22 138/62 (87) 100 12/25/19 08:00 Bi-pap 12/25/19 08:00 98.5 79 18 135/51 (79) 12/25/19 08:00 80 12/25/19 08:00 45 12/25/19 07:24 80 16 100 45 12/25/19 07:00 79 20 134/47 (76) 98 12/25/19 06:00 80 21 140/52 (81) 12/25/19 06:00 80 21 140/52 (81) 12/25/19 05:09 78 12/25/19 05:08 Bi-pap 12/25/19 05:00 83 21 149/61 (90) 12/25/19 04:00 97.4 90 25 149/61 (90) 67 12/25/19 04:00 Bi-pap 12/25/19 03:20 81 16 97 50 12/25/19 03:00 92 22 155/54 (87) 100 12/25/19 02:00 75 22 147/56 (86) 99 12/25/19 01:32 50 12/25/19 01:00 77 21 144/52 (82) 96 12/25/19 00:00 Bi-pap 12/25/19 00:00 82 12/25/19 00:00 98.2 76 23 144/58 (86) 99 12/25/19 00:00 50 12/24/19 23:43 80 17 98 50 12/24/19 23:00 82 27 146/59 (88) 98 12/24/19 22:00 79 24 126/49 (74) 98 12/24/19 21:00 84 24 151/64 (93) 98 12/24/19 20:03 81 16 100 50 12/24/19 20:00 Bi-pap 12/24/19 20:00 98.4 81 23 145/59 (87) 99 12/24/19 20:00 50 12/24/19 20:00 86 12/24/19 19:00 82 21 148/56 (86) 100 12/24/19 18:00 98.5 82 24 152/52 (85) 100 12/24/19 17:00 79 22 146/59 (88) 100 12/24/19 16:00 80 22 152/64 (93) 100 12/24/19 16:00 50 12/24/19 16:00 Bi-pap 12/24/19 16:00 80 12/24/19 15:28 82 18 100 50 12/24/19 15:00 75 22 138/53 (81) 100 12/24/19 14:00 80 25 141/53 (82) 99 12/24/19 13:00 85 20 143/55 (84) 12/24/19 12:00 Bi-pap 12/24/19 12:00 50 12/24/19 12:00 85 12/24/19 12:00 98.5 85 25 156/66 (96) 99 12/24/19 11:27 76 14 100 50 12/24/19 11:00 80 23 148/61 (90) 100 12/24/19 10:00 76 17 141/59 (86) 99 12/24/19 09:00 74 21 127/53 (77) 99 12/24/19 08:30 82 21 114/44 (67) 12/24/19 08:00 98.0 85 25 157/74 (101) 97 12/24/19 08:00 50 12/24/19 08:00 83 12/24/19 08:00 Bi-pap 12/24/19 07:27 81 19 100 50 12/24/19 07:00 84 25 150/42 (78) 98 12/24/19 06:00 77 26 138/62 (87) 99 12/24/19 05:00 80 25 159/71 (100) 99 12/24/19 04:00 98.0 79 24 149/66 (93) 99 12/24/19 04:00 87 12/24/19 04:00 50 12/24/19 04:00 Bi-pap 12/24/19 03:30 78 16 97 50 12/24/19 03:00 80 26 144/64 (90) 99 12/24/19 02:00 86 23 130/100 (110) 97 12/24/19 01:47 167/66 12/24/19 01:00 82 32 158/69 (98) 98 12/24/19 00:30 85 34 158/70 (99) 97 12/24/19 00:00 Bi-pap 12/24/19 00:00 98.5 82 34 149/68 (95) 97 12/24/19 00:00 85 12/24/19 00:00 50 12/23/19 23:30 91 27 98 50 12/23/19 23:00 81 25 139/67 (91) 98 12/23/19 22:30 83 23 155/68 (97) 98 12/23/19 22:00 85 26 158/80 (106) 98 12/23/19 21:30 81 29 149/71 (97) 97 12/23/19 21:00 78 25 136/56 (82) 98 12/23/19 20:00 81 12/23/19 20:00 Bi-pap 12/23/19 20:00 50 12/23/19 20:00 98.0 88 23 153/73 (99) 98 12/23/19 19:30 86 29 99 50 12/23/19 19:00 79 24 140/59 (86) 100 12/23/19 18:00 95 28 131/104 (113) 97 12/23/19 17:00 80 25 141/57 (85) 100 7/12/20 16:00 74 12/23/19 16:00 Bi-pap 12/23/19 16:00 50 12/23/19 16:00 97.6 84 27 151/66 (94) 99 12/23/19 15:30 88 26 99 50 12/23/19 15:00 85 26 151/64 (93) 100 12/23/19 14:00 92 28 158/65 (96) 99 12/23/19 13:00 79 28 135/51 (79) 100 12/23/19 12:00 50 12/23/19 12:00 Bi-pap 12/23/19 12:00 97.4 88 27 134/114 (121) 100 12/23/19 12:00 92 12/23/19 11:32 93 28 97 50 12/23/19 11:00 75 23 138/59 (85) 96 Intake and Output 12/24/19 12/25/19 19:00 07:00 Intake Total 885.87733 ml 1190.0 ml Output Total 815 ml 925 ml Balance 70.09006 ml 265.0 ml Intake Oral 10 ml IV Total 745.56249 ml 710.0 ml Tube Feeding 80 ml 480 ml Other 50 ml Output Urine Total 815 ml 925 ml Labs Test 12/22/19 22:25 12/23/19 05:20 12/23/19 05:25 12/23/19 07:16 Arterial Blood pH 7.271 (7.350-7.450) 7.371 (7.350-7.450) Arterial Blood Partial Pressure CO2 69.5 mmHg (35.0-45.0) 58.1 mmHg (35.0-45.0) Arterial Blood Partial Pressure O2 78.4 mmHg (75.0-100.0) 96.7 mmHg (75.0-100.0) Arterial Blood HCO3 31.3 mmol/L (22.0-26.0) 32.9 mmol/L (22.0-26.0) Arterial Blood Oxygen Saturation 92.5 % (95-100) 96.7 % (95-100) Arterial Blood Base Excess 3.1 (-2-2) 6.4 (-2-2) Raphael Test Positive Positive White Blood Count 9.1 K/UL (4.8-10.8) Red Blood Count 2.96 M/UL (4.20-5.40) Hemoglobin 9.5 G/DL (12.0-16.0) Hematocrit 31.4 % (37.0-47.0) Mean Corpuscular Volume 106 FL (80-99) Mean Corpuscular Hemoglobin 32.2 PG (27.0-31.0) Mean Corpuscular Hemoglobin Concent 30.3 G/DL (32.0-36.0) Red Cell Distribution Width 13.3 % (11.6-14.8) Platelet Count 184 K/UL (150-450) Mean Platelet Volume 6.7 FL (6.5-10.1) Neutrophils (%) (Auto) % (45.0-75.0) Lymphocytes (%) (Auto) % (20.0-45.0) Monocytes (%) (Auto) % (1.0-10.0) Eosinophils (%) (Auto) % (0.0-3.0) Basophils (%) (Auto) % (0.0-2.0) Differential Total Cells Counted 100 Neutrophils % (Manual) 89 % (45-75) Lymphocytes % (Manual) 7 % (20-45) Monocytes % (Manual) 4 % (1-10) Eosinophils % (Manual) 0 % (0-3) Basophils % (Manual) 0 % (0-2) Band Neutrophils 0 % (0-8) Platelet Estimate Adequate Platelet Morphology Normal Hypochromasia 1+ Macrocytosis 1+ Sodium Level 152 MMOL/L (136-145) Potassium Level 5.0 MMOL/L (3.5-5.1) Chloride Level 112 MMOL/L (98-107) Carbon Dioxide Level 35 MMOL/L (21-32) Anion Gap 5 mmol/L (5-15) Blood Urea Nitrogen 32 mg/dL (7-18) Creatinine 1.0 MG/DL (0.55-1.30) Estimat Glomerular Filtration Rate 53.3 mL/min (>60) Glucose Level 143 MG/DL (74-106) Calcium Level 8.7 MG/DL (8.5-10.1) POC Whole Blood Glucose 128 MG/DL (74-106) Test 12/24/19 05:55 12/24/19 08:07 12/25/19 08:55 White Blood Count 8.3 K/UL (4.8-10.8) 7.6 K/UL (4.8-10.8) Red Blood Count 2.95 M/UL (4.20-5.40) 3.14 M/UL (4.20-5.40) Hemoglobin 9.5 G/DL (12.0-16.0) 10.0 G/DL (12.0-16.0) Hematocrit 30.8 % (37.0-47.0) 31.9 % (37.0-47.0) Mean Corpuscular Volume 104 FL (80-99) 102 FL (80-99) Mean Corpuscular Hemoglobin 32.4 PG (27.0-31.0) 31.9 PG (27.0-31.0) Mean Corpuscular Hemoglobin Concent 31.0 G/DL (32.0-36.0) 31.3 G/DL (32.0-36.0) Red Cell Distribution Width 13.3 % (11.6-14.8) 13.2 % (11.6-14.8) Platelet Count 181 K/UL (150-450) 195 K/UL (150-450) Mean Platelet Volume 6.3 FL (6.5-10.1) 7.0 FL (6.5-10.1) Neutrophils (%) (Auto) 82.4 % (45.0-75.0) 79.3 % (45.0-75.0) Lymphocytes (%) (Auto) 12.1 % (20.0-45.0) 13.9 % (20.0-45.0) Monocytes (%) (Auto) 5.1 % (1.0-10.0) 5.8 % (1.0-10.0) Eosinophils (%) (Auto) 0.1 % (0.0-3.0) 0.3 % (0.0-3.0) Basophils (%) (Auto) 0.3 % (0.0-2.0) 0.7 % (0.0-2.0) Sodium Level 146 MMOL/L (136-145) 145 MMOL/L (136-145) Potassium Level 4.5 MMOL/L (3.5-5.1) 4.2 MMOL/L (3.5-5.1) Chloride Level 107 MMOL/L (98-107) 105 MMOL/L (98-107) Carbon Dioxide Level 37 MMOL/L (21-32) 37 MMOL/L (21-32) Anion Gap 2 mmol/L (5-15) 4 mmol/L (5-15) Blood Urea Nitrogen 31 mg/dL (7-18) 28 mg/dL (7-18) Creatinine 0.9 MG/DL (0.55-1.30) 0.8 MG/DL (0.55-1.30) Estimat Glomerular Filtration Rate > 60 mL/min (>60) > 60 mL/min (>60) Glucose Level 158 MG/DL (74-106) 171 MG/DL (74-106) Uric Acid 2.7 MG/DL (2.6-7.2) Calcium Level 8.7 MG/DL (8.5-10.1) 7.8 MG/DL (8.5-10.1) Phosphorus Level 3.3 MG/DL (2.5-4.9) Magnesium Level 2.3 MG/DL (1.8-2.4) Total Bilirubin 0.7 MG/DL (0.2-1.0) 0.6 MG/DL (0.2-1.0) Aspartate Amino Transf (AST/SGOT) 20 U/L (15-37) 26 U/L (15-37) Alanine Aminotransferase (ALT/SGPT) 34 U/L (12-78) 42 U/L (12-78) Alkaline Phosphatase 32 U/L (46-116) 32 U/L (46-116) Total Protein 6.1 G/DL (6.4-8.2) 5.9 G/DL (6.4-8.2) Albumin 2.9 G/DL (3.4-5.0) 2.9 G/DL (3.4-5.0) Globulin 3.2 g/dL 3.0 g/dL Albumin/Globulin Ratio 0.9 (1.0-2.7) 1.0 (1.0-2.7) Arterial Blood pH 7.410 (7.350-7.450) Arterial Blood Partial Pressure CO2 53.2 mmHg (35.0-45.0) Arterial Blood Partial Pressure O2 88.1 mmHg (75.0-100.0) Arterial Blood HCO3 33.0 mmol/L (22.0-26.0) Arterial Blood Oxygen Saturation 95.7 % (95-100) Arterial Blood Base Excess 7.2 (-2-2) Raphael Test Positive Thyroid Stimulating Hormone (TSH) 14.841 uiU/mL (0.358-3.740) Free Thyroxine 0.62 NG/DL (0.76-1.46) Height (Feet): 5 Height (Inches): 7.00 Weight (Pounds): 230 Objective Vitals: reviewed General: NAD HEENT: nc, at ++ogt Neck: supple ++intubated Chest: decreased breath sounds bilaterally Cardiovascular: RRR, no s3, s4 Abdomen: soft, nontender, nd Extremities: 1-2 + edema, scd's Neuro: nonverbal : Frank Kelly MD Dec 25, 2019 10:49
--- NOTE | 2019-12-25 11:18 | Nephrology Progress Note ---
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 Respiratory distress most likely secondary to pulmonary edema and or COPD exacerbation. Hyponatremia. Obese. Hypothyroidism. Elevated d-dimer. Elevated liver enzymes Plan December 24: Lab reviewed. Still on BiPAP. Renal parameters stable. December 23: Lab reviewed. Remains on BiPAP. Agitated at times. ABG ordered. Serum sodium improved. December 22: Lab reviewed. On BiPAP. Stable from renal standpoint of view. Will follow serum sodium. December 21: Labs reviewed. On nonrebreather mask. D5W 50 cc an hour started for hypernatremia. Magnesium supplement given. Continue per consultants. December 20: Patient on weaning trial. No labs done today. Discussed with RN. Continue per consultants. December 19: Patient remains intubated. Renal parameters stable. Discussed with RN. Continue per consultants. December 18: Patient self extubated yesterday however was reintubated. Remains stable from renal standpoint of view. Discussed with RN. Discussed with Dr. Myers. December 17: Remains intubated. Remains full code. Failed weaning. Stable from renal standpoint of view. Continue per consultants. Discussed with DARREL Monten[place]. December 16: Remains intubated. Full code. Weaning in process. Stable from renal standpoint of view. December 15: Remains vented. Electrolytes improved. Continue per consultants. December 14: Patient remains in ICU intubated on ventilator. Potassium low. Phosphorus low. Supplements given. Renal parameters are stable. Continue per consultants. December 13: Patient remains in ICU intubated on ventilator. Discussed with RN. Labs reviewed. Creatinine 1.3. Potassium supplements given. Mag sulfate IV 2 g given. Continue per consultants. December 12: Patient in ICU. Intubated on ventilator. Discussed with RN. Labs reviewed. Potassium supplement given. Continue per consultants. Arterial blood gas indicative of CO2 retention. Patient on the way to ICU for intubation. Continue per pulmonary management. Pulmonary support, Check 2D echocardiogram. Previous 2D echo had a 50% ejection fraction. Keep blood sugar and blood pressure in check. Thyroid panel. Monitor electrolytes and renal parameters. Afterload reduction. Diuretics Monitor serum calcium, supplements via NG tube. Per orders. Subjective ROS Limited/Unobtainable: Yes Objective Objective Last 24 Hour Vital Signs Date Time Temp Pulse Resp B/P (MAP) Pulse Ox O2 Delivery O2 Flow Rate FiO2 12/25/19 11:00 85 19 141/56 (84) 99 12/25/19 10:00 79 19 141/47 (78) 96 12/25/19 09:00 83 22 138/62 (87) 100 12/25/19 08:00 Bi-pap 12/25/19 08:00 98.5 79 18 135/51 (79) 12/25/19 08:00 80 12/25/19 08:00 45 12/25/19 07:24 80 16 100 45 12/25/19 07:00 79 20 134/47 (76) 98 12/25/19 06:00 80 21 140/52 (81) 12/25/19 06:00 80 21 140/52 (81) 12/25/19 05:09 78 12/25/19 05:08 Bi-pap 12/25/19 05:00 83 21 149/61 (90) 12/25/19 04:00 97.4 90 25 149/61 (90) 67 12/25/19 04:00 Bi-pap 12/25/19 03:20 81 16 97 50 12/25/19 03:00 92 22 155/54 (87) 100 12/25/19 02:00 75 22 147/56 (86) 99 12/25/19 01:32 50 12/25/19 01:00 77 21 144/52 (82) 96 12/25/19 00:00 Bi-pap 12/25/19 00:00 82 12/25/19 00:00 98.2 76 23 144/58 (86) 99 12/25/19 00:00 50 12/24/19 23:43 80 17 98 50 12/24/19 23:00 82 27 146/59 (88) 98 12/24/19 22:00 79 24 126/49 (74) 98 12/24/19 21:00 84 24 151/64 (93) 98 12/24/19 20:03 81 16 100 50 12/24/19 20:00 Bi-pap 12/24/19 20:00 98.4 81 23 145/59 (87) 99 12/24/19 20:00 50 12/24/19 20:00 86 12/24/19 19:00 82 21 148/56 (86) 100 12/24/19 18:00 98.5 82 24 152/52 (85) 100 12/24/19 17:00 79 22 146/59 (88) 100 12/24/19 16:00 80 22 152/64 (93) 100 12/24/19 16:00 50 12/24/19 16:00 Bi-pap 12/24/19 16:00 80 12/24/19 15:28 82 18 100 50 12/24/19 15:00 75 22 138/53 (81) 100 12/24/19 14:00 80 25 141/53 (82) 99 12/24/19 13:00 85 20 143/55 (84) 12/24/19 12:00 Bi-pap 12/24/19 12:00 50 12/24/19 12:00 85 12/24/19 12:00 98.5 85 25 156/66 (96) 99 12/24/19 11:27 76 14 100 50 Intake and Output 12/24/19 12/25/19 19:00 07:00 Intake Total 885.63814 ml 1190.0 ml Output Total 815 ml 925 ml Balance 70.39525 ml 265.0 ml Intake Oral 10 ml IV Total 745.22887 ml 710.0 ml Tube Feeding 80 ml 480 ml Other 50 ml Output Urine Total 815 ml 925 ml Laboratory Tests 12/25/19 08:55: White Blood Count 7.6, Red Blood Count 3.14L, Hemoglobin 10.0L, Hematocrit 31.9L , Mean Corpuscular Volume 102H, Mean Corpuscular Hemoglobin 31.9H, Mean Corpuscular Hemoglobin Concent 31.3L, Red Cell Distribution Width 13.2, Platelet Count 195, Mean Platelet Volume 7.0, Neutrophils (%) (Auto) 79.3H, Lymphocytes (%) (Auto) 13.9L, Monocytes (%) (Auto) 5.8, Eosinophils (%) (Auto) 0.3, Basophils (%) (Auto) 0.7, Sodium Level 145, Potassium Level 4.2, Chloride Level 105, Carbon Dioxide Level 37H, Anion Gap 4L, Blood Urea Nitrogen 28H, Creatinine 0.8, Estimat Glomerular Filtration Rate > 60, Glucose Level 171H, Calcium Level 7.8L, Total Bilirubin 0.6, Aspartate Amino Transf (AST/SGOT) 26, Alanine Aminotransferase (ALT/SGPT) 42, Alkaline Phosphatase 32L, Total Protein 5.9L, Albumin 2.9L, Globulin 3.0, Albumin/Globulin Ratio 1.0, Thyroid Stimulating Hormone (TSH) 14.841H, Free Thyroxine 0.62L Height (Feet): 5 Height (Inches): 7.00 Weight (Pounds): 230 General Appearance: no apparent distress EENT: other - On BiPAP Cardiovascular: tachycardia Respiratory/Chest: decreased breath sounds Abdomen: distended, other - Obese Bryan Ochoa MD Dec 25, 2019 11:18
--- NOTE | 2019-12-25 11:30 | NUR ---
NURSE NOTES: Pt was seen by Dr. Myers. Order received to place pt on Venti mask at 35% FIO2 then draw ABGs post 1hour. Order was processed and RT informed.
--- NOTE | 2019-12-25 12:00 | Pulmonology Progress Note ---
Subjective ROS Limited/Unobtainable: Yes Interval Events: Extubated 12/21/19; now on BiPAP Constitutional: Denies: fever HEENT: Repors: no symptoms Respiratory: Reports: no symptoms Cardiovascular: Reports: no symptoms Gastrointestinal/Abdominal: Reports: no symptoms Genitourinary: Reports: no symptoms Allergies: Coded Allergies: LITHIUM (Verified Allergy, Unknown, 02/07/19) All Systems: reviewed and negative except above Objective Last 24 Hour Vital Signs Date Time Temp Pulse Resp B/P (MAP) Pulse Ox O2 Delivery O2 Flow Rate FiO2 12/25/19 11:24 77 19 99 35 12/25/19 11:00 85 19 141/56 (84) 99 12/25/19 10:00 79 19 141/47 (78) 96 12/25/19 09:00 83 22 138/62 (87) 100 12/25/19 08:00 Bi-pap 12/25/19 08:00 98.5 79 18 135/51 (79) 12/25/19 08:00 80 12/25/19 08:00 45 12/25/19 07:24 80 16 100 45 12/25/19 07:00 79 20 134/47 (76) 98 12/25/19 06:00 80 21 140/52 (81) 12/25/19 06:00 80 21 140/52 (81) 12/25/19 05:09 78 12/25/19 05:08 Bi-pap 12/25/19 05:00 83 21 149/61 (90) 12/25/19 04:00 97.4 90 25 149/61 (90) 67 12/25/19 04:00 Bi-pap 12/25/19 03:20 81 16 97 50 12/25/19 03:00 92 22 155/54 (87) 100 12/25/19 02:00 75 22 147/56 (86) 99 12/25/19 01:32 50 12/25/19 01:00 77 21 144/52 (82) 96 12/25/19 00:00 Bi-pap 12/25/19 00:00 82 12/25/19 00:00 98.2 76 23 144/58 (86) 99 12/25/19 00:00 50 12/24/19 23:43 80 17 98 50 12/24/19 23:00 82 27 146/59 (88) 98 12/24/19 22:00 79 24 126/49 (74) 98 12/24/19 21:00 84 24 151/64 (93) 98 12/24/19 20:03 81 16 100 50 12/24/19 20:00 Bi-pap 12/24/19 20:00 98.4 81 23 145/59 (87) 99 12/24/19 20:00 50 12/24/19 20:00 86 12/24/19 19:00 82 21 148/56 (86) 100 12/24/19 18:00 98.5 82 24 152/52 (85) 100 12/24/19 17:00 79 22 146/59 (88) 100 12/24/19 16:00 80 22 152/64 (93) 100 12/24/19 16:00 50 12/24/19 16:00 Bi-pap 12/24/19 16:00 80 12/24/19 15:28 82 18 100 50 12/24/19 15:00 75 22 138/53 (81) 100 12/24/19 14:00 80 25 141/53 (82) 99 12/24/19 13:00 85 20 143/55 (84) Intake and Output 12/24/19 12/25/19 19:00 07:00 Intake Total 885.70566 ml 1190.0 ml Output Total 815 ml 925 ml Balance 70.57684 ml 265.0 ml Intake Oral 10 ml IV Total 745.57527 ml 710.0 ml Tube Feeding 80 ml 480 ml Other 50 ml Output Urine Total 815 ml 925 ml General Appearance: no acute distress Respiratory: chest wall non-tender, lungs clear Cardiovascular: normal peripheral pulses, normal rate Abdomen: normal bowel sounds Laboratory Tests 12/25/19 08:55: White Blood Count 7.6, Red Blood Count 3.14L, Hemoglobin 10.0L, Hematocrit 31.9L , Mean Corpuscular Volume 102H, Mean Corpuscular Hemoglobin 31.9H, Mean Corpuscular Hemoglobin Concent 31.3L, Red Cell Distribution Width 13.2, Platelet Count 195, Mean Platelet Volume 7.0, Neutrophils (%) (Auto) 79.3H, Lymphocytes (%) (Auto) 13.9L, Monocytes (%) (Auto) 5.8, Eosinophils (%) (Auto) 0.3, Basophils (%) (Auto) 0.7, Sodium Level 145, Potassium Level 4.2, Chloride Level 105, Carbon Dioxide Level 37H, Anion Gap 4L, Blood Urea Nitrogen 28H, Creatinine 0.8, Estimat Glomerular Filtration Rate > 60, Glucose Level 171H, Calcium Level 7.8L, Total Bilirubin 0.6, Aspartate Amino Transf (AST/SGOT) 26, Alanine Aminotransferase (ALT/SGPT) 42, Alkaline Phosphatase 32L, Total Protein 5.9L, Albumin 2.9L, Globulin 3.0, Albumin/Globulin Ratio 1.0, Thyroid Stimulating Hormone (TSH) 14.841H, Free Thyroxine 0.62L Current Medications Medications (Trade) Dose Ordered Sig/Angie Route PRN Reason Start Time Stop Time Status Last Admin Dose Admin Acetaminophen (Tylenol) 650 mg Q6H PRN ORAL Mild Pain (Pain Scale 1-3) 12/12/19 12:30 01/11/20 12:29 12/22/19 20:56 Acetaminophen (Tylenol) 1,000 mg Q6H PRN ORAL MODERATE PAIN 12/12/19 12:30 01/11/20 12:29 Amantadine HCl (Symmetrel) 100 mg TWICE A DAY ORAL 12/22/19 18:00 01/11/20 08:59 12/25/19 08:56 Aspirin (ASA) 324 mg DAILY ORAL 12/23/19 09:00 02/04/20 08:59 12/25/19 08:56 Atorvastatin Calcium (Lipitor) 10 mg BEDTIME ORAL 12/22/19 21:00 03/11/20 20:59 12/24/19 20:51 Calcium Carbonate (Os-Octavio) 500 mg THREE TIMES A DAY ORAL 12/22/19 13:00 03/20/20 17:59 12/25/19 08:56 Clonidine HCl (Catapres Tab) 0.1 mg Q6H PRN GT For high BP over 160 systolic 12/15/19 16:30 03/11/20 12:30 12/24/19 01:47 Dextrose 1,000 ml @ 50 mls/hr Q20H IV 12/22/19 09:00 01/21/20 08:59 12/24/19 17:30 Dextrose (Dextrose 50%) 25 ml Q30M PRN IV Hypoglycemia 12/13/19 07:15 03/12/20 07:14 Dextrose (Dextrose 50%) 50 ml Q30M PRN IV Hypoglycemia 12/13/19 07:15 03/12/20 07:14 Divalproex Sodium (Depakote) 250 mg EVERY 12 HOURS ORAL 12/22/19 21:00 01/12/20 20:59 12/25/19 08:58 Docusate Sodium (Colace) 100 mg TWICE A DAY ORAL 12/22/19 18:00 01/14/20 17:59 12/25/19 08:58 Fentanyl Citrate 250 ml @ 0 mls/hr Q24H IV 12/18/19 20:53 03/17/20 20:52 12/19/19 20:56 Insulin Aspart (NovoLOG) EVERY 6 HOURS SUBQ 12/13/19 12:00 03/12/20 11:59 12/25/19 05:42 Lactulose (Cephulac) 20 gm BID ORAL 12/25/19 09:00 01/24/20 08:59 12/25/19 08:56 Levothyroxine Sodium (Synthroid) 75 mcg DAILY IV 12/13/19 09:00 01/11/20 09:29 12/25/19 08:56 Methylprednisolone Sodium Succinate (Solu-MEDROL) 20 mg EVERY 6 HOURS IVP 12/22/19 12:00 03/18/20 11:59 12/25/19 05:36 Nitroglycerin (Ntg) 0.4 mg Q5MIN X 3 DOSES PRN SL CHEST PAIN 12/12/19 12:00 01/10/20 21:44 Pantoprazole (Protonix) 40 mg EVERY 12 HOURS IVP 12/14/19 09:00 01/13/20 08:59 12/25/19 08:56 Phosphorus (Phospha 250 Neutral) 250 mg THREE TIMES A DAY ORAL 12/22/19 13:00 01/14/20 08:59 12/25/19 08:58 Polyethylene Glycol (Miralax) 17 gm BEDTIME ORAL 12/22/19 21:00 01/18/20 20:59 12/24/19 20:51 Polyethylene Glycol (Miralax) 17 gm DAILYPRN PRN ORAL Constipation 12/24/19 19:00 01/23/20 18:59 Quetiapine Fumarate (SEROqueL) 50 mg Q12HR ORAL 12/22/19 21:00 02/05/20 20:59 12/25/19 08:56 Assessment/Plan Assessment/Plan IMPRESSION: 1. Respiratory failure. Now on BiPAP 2. Has healthcare-associated pneumonia; is negative for COVID-19. 3. Psych disorder. 4. Obesity. 5. Hypertension. 6. Hypernatremia DISCUSSION: Continue broad spectrum antibiotics. Off olanzepine Has negative COVID-19 swab. Switched to Seroquel Will try ventimask today and check ABG Emerita Fan Omar Syed MD Dec 25, 2019 12:00
--- NOTE | 2019-12-25 12:00 | NUR ---
NURSE NOTES: Pt was placed on Venturi mask at 35% FIO2, O2Sat is fluctuating from 80% to lower 90-92%. Awaiting to draw ABGs.
--- NOTE | 2019-12-25 12:22 | NUR ---
SWALLOW STATUS/BEDSIDE SWALLOW EVALUATION ATTEMPT WHEN CLINICIAN APPROACHED, THE PATIENT WAS BEGINNING THE PROCESS OF WEANING FROM FULL BIPAP SUPPORT. SHE HAD BEEN TRANSITIONED TO A VENTI MASK. HER 02 SATURATION HAD DROPPED TO 90% AND SHE PRESENTED WITH WORK OF BREATHING (RR AT 28 BPM). PER RN/SHAGGY AND RT WHO WERE PRESENT THE PATIENT WAS NOT DETERMINED TO BE SAFE TO PARTICIPATE IN P.O. TRIALS AT THIS TIME (I.E. NOT CLEARED FOR ST INTERVENTION) ST WILL RE/ATTEMPT P.O. TRIALS TOMORROW IF FEASABLE. THANK YOU FOR THIS REFERRAL.
--- NOTE | 2019-12-25 13:04 | NUR ---
CASE MANAGEMENT: REVIEW SI: ACUTE RESPIRATORY FAILURE . PNA T 97.4 HR 90 RR 25 BP 155/54 SAT 67% BIPAP FIO2 50 H/H 10.0/31.9 IS: SOLU MEDROL IV Q6HR FENTANYL IV Q24HR OG TUBE FEEDING ICU STATUS DCP: PATIENT IS FROM [facility]
--- NOTE | 2019-12-25 13:30 | NUR ---
NURSE NOTES: ABGs were drawn and results reported to Dr Myers. Pt was placed back on BIPAP after she desaturated down to 70% while on Venturi mask at 35% FIO2. VS remain stable.
--- NOTE | 2019-12-25 15:00 | NUR ---
NURSE NOTES: VS remain stable. Pt was seen by Dr. Davies. No new orders at this time. Per Dr. Myers, will maintain pt on BIPAP overnight.
--- NOTE | 2019-12-25 17:30 | NUR ---
NURSE NOTES: Pt was cleaned, dressings were changed, gown/bed linens were changed. Pt was repositioned with bilateral extremities elevated on pillows. HOB was raised to high flores's while pt remains on BIPAP. Pt remains afebrile.
--- NOTE | 2019-12-25 17:30 | Cardiac Electrophysiology PN ---
Assessment/Plan Assessment/Plan 1. Recurrent respiratory failure with BNP of more than 19,000. Echo showed normal ejection fraction. Off Lasix, extubated on BIPAP 2. Bradycardia requiring atropine due to respiratory failure as was on T piece at the time. No recurrence on the Vent 3. Bilateral UE edema. Venous Duplex was negative on 12/12/19. 4. History of Parkinson disease. 5. Hyperlipidemia. DW RN Subjective Subjective Extubated and off pressors. No more laney. Failed Ventimask and is back on BIPAP. Has frequent Trigeminal PVCs Objective Last 24 Hour Vital Signs Date Time Temp Pulse Resp B/P (MAP) Pulse Ox O2 Delivery O2 Flow Rate FiO2 12/25/19 17:06 75 23 138/56 (83) 98 12/25/19 16:00 Bi-pap 12/25/19 16:00 75 12/25/19 16:00 35 12/25/19 16:00 98.6 75 18 137/59 (85) 98 12/25/19 15:00 78 25 144/60 (88) 100 12/25/19 14:30 75 23 99 40 12/25/19 14:00 76 25 152/65 (94) 93 12/25/19 13:00 81 25 137/75 (95) 93 12/25/19 12:00 Bi-pap 12/25/19 12:00 96 12/25/19 12:00 95 19 150/53 (85) 92 12/25/19 12:00 35 12/25/19 11:24 77 19 99 35 12/25/19 11:00 85 19 141/56 (84) 99 12/25/19 10:00 79 19 141/47 (78) 96 12/25/19 09:00 83 22 138/62 (87) 100 12/25/19 08:00 Bi-pap 12/25/19 08:00 98.5 79 18 135/51 (79) 12/25/19 08:00 80 12/25/19 08:00 45 12/25/19 07:24 80 16 100 45 12/25/19 07:00 79 20 134/47 (76) 98 12/25/19 06:00 80 21 140/52 (81) 12/25/19 06:00 80 21 140/52 (81) 12/25/19 05:09 78 12/25/19 05:08 Bi-pap 12/25/19 05:00 83 21 149/61 (90) 12/25/19 04:00 97.4 90 25 149/61 (90) 67 12/25/19 04:00 Bi-pap 12/25/19 03:20 81 16 97 50 12/25/19 03:00 92 22 155/54 (87) 100 12/25/19 02:00 75 22 147/56 (86) 99 12/25/19 01:32 50 12/25/19 01:00 77 21 144/52 (82) 96 12/25/19 00:00 Bi-pap 12/25/19 00:00 82 12/25/19 00:00 98.2 76 23 144/58 (86) 99 12/25/19 00:00 50 12/24/19 23:43 80 17 98 50 12/24/19 23:00 82 27 146/59 (88) 98 12/24/19 22:00 79 24 126/49 (74) 98 12/24/19 21:00 84 24 151/64 (93) 98 12/24/19 20:03 81 16 100 50 12/24/19 20:00 Bi-pap 12/24/19 20:00 98.4 81 23 145/59 (87) 99 12/24/19 20:00 50 12/24/19 20:00 86 12/24/19 19:00 82 21 148/56 (86) 100 12/24/19 18:00 98.5 82 24 152/52 (85) 100 Intake and Output 12/24/19 12/25/19 19:00 07:00 Intake Total 885.82657 ml 1190.0 ml Output Total 815 ml 925 ml Balance 70.35192 ml 265.0 ml Intake Oral 10 ml IV Total 745.81996 ml 710.0 ml Tube Feeding 80 ml 480 ml Other 50 ml Output Urine Total 815 ml 925 ml Laboratory Tests Test 12/25/19 08:55 12/25/19 13:30 White Blood Count 7.6 K/UL (4.8-10.8) Red Blood Count 3.14 M/UL (4.20-5.40) L Hemoglobin 10.0 G/DL (12.0-16.0) L Hematocrit 31.9 % (37.0-47.0) L Mean Corpuscular Volume 102 FL (80-99) H Mean Corpuscular Hemoglobin 31.9 PG (27.0-31.0) H Mean Corpuscular Hemoglobin Concent 31.3 G/DL (32.0-36.0) L Red Cell Distribution Width 13.2 % (11.6-14.8) Platelet Count 195 K/UL (150-450) Mean Platelet Volume 7.0 FL (6.5-10.1) Neutrophils (%) (Auto) 79.3 % (45.0-75.0) H Lymphocytes (%) (Auto) 13.9 % (20.0-45.0) L Monocytes (%) (Auto) 5.8 % (1.0-10.0) Eosinophils (%) (Auto) 0.3 % (0.0-3.0) Basophils (%) (Auto) 0.7 % (0.0-2.0) Sodium Level 145 MMOL/L (136-145) Potassium Level 4.2 MMOL/L (3.5-5.1) Chloride Level 105 MMOL/L (98-107) Carbon Dioxide Level 37 MMOL/L (21-32) H Anion Gap 4 mmol/L (5-15) L Blood Urea Nitrogen 28 mg/dL (7-18) H Creatinine 0.8 MG/DL (0.55-1.30) Estimat Glomerular Filtration Rate > 60 mL/min (>60) Glucose Level 171 MG/DL (74-106) H Calcium Level 7.8 MG/DL (8.5-10.1) L Total Bilirubin 0.6 MG/DL (0.2-1.0) Aspartate Amino Transf (AST/SGOT) 26 U/L (15-37) Alanine Aminotransferase (ALT/SGPT) 42 U/L (12-78) Alkaline Phosphatase 32 U/L (46-116) L Total Protein 5.9 G/DL (6.4-8.2) L Albumin 2.9 G/DL (3.4-5.0) L Globulin 3.0 g/dL Albumin/Globulin Ratio 1.0 (1.0-2.7) Thyroid Stimulating Hormone (TSH) 14.841 uiU/mL (0.358-3.740) Free Thyroxine 0.62 NG/DL (0.76-1.46) L Arterial Blood pH 7.443 (7.350-7.450) Arterial Blood Partial Pressure CO2 53.5 mmHg (35.0-45.0) H Arterial Blood Partial Pressure O2 67.6 mmHg (75.0-100.0) L Arterial Blood HCO3 35.8 mmol/L (22.0-26.0) H Arterial Blood Oxygen Saturation 91.9 % (95-100) L Arterial Blood Base Excess 10.2 (-2-2) *H Raphael Test Positive Objective HEAD AND NECK: No JVD.BIPAP is on LUNGS: Coarse rhonchi. CARDIOVASCULAR: Regular S1 and S2 and tachycardic. ABDOMEN: Soft. EXTREMITIES: Bilateral Arm edema. Cameron Davies MD Dec 25, 2019 17:30
--- NOTE | 2019-12-25 19:30 | NUR ---
HAND-OFF: Report given to Enmanuel ROJO. Endorsed plan of care. VS remain stable.
--- NOTE | 2019-12-25 19:39 | NUR ---
NURSE NOTES: PATIENT ALERT, DENIED PAIN OR SOB, FOLLOWED COMMANDS, RESPIRATION REGULAR ON BIPAP I/E 18/6, FIO2 40%, RATE 12, O2 SATURATION OVER 97% NOTED, HR 70'S/MIN SR W/PVC NOTED, NGT TO LEFT NARES, INTACT AND PATENT, HELD VITAL AF 1.2 FEEDING STATUS, ABDOMEN SOFT, NON TENDER, NO BM STATUS, KEPT HOB 30 DEGREES AND ASPIRATION PRECAUTION, F/C INTACT AND PATENT, YELLOW URINE OUTED GRAVITY, PPL TO LEFT FA 22G, INTACT AND PATENT, ONGOING IV FLUID D5W AT 50ML/HR VIAL LEFT PPL, 2 POINT SOFT RESTRAINTS, ON P200 BED, MADE LOWER BED POSITION, ON BED ALARM AND LOCKED, PROVIDED CALL LIGHT WITHIN REACH, WILL CONTINUE TO MONITOR.
[2019-12-25] MEDS: Miralax 17gm pkt ORAL SCH (20:30)
[2019-12-25] MEDS: fentaNYL 2500mcg/NS 250ml 250 ML IV SCH (20:53)
--- NOTE | 2019-12-25 21:11 | General Progress Note ---
Assessment/Plan Problem List: (1) Dyspnea ICD Codes: R06.00 - Dyspnea, unspecified SNOMED: 157742279 (2) Hypothyroidism ICD Codes: E03.9 - Hypothyroidism, unspecified SNOMED: 41445405 (3) Obese ICD Codes: E66.9 - Obesity, unspecified SNOMED: 172888345, 822274185 (4) Psychosis ICD Codes: F29 - Unspecified psychosis not due to a substance or known physiological condition SNOMED: 68597446 (5) Respiratory failure ICD Codes: J96.90 - Respiratory failure, unspecified, unspecified whether with hypoxia or hypercapnia SNOMED: 454728078 (6) Respiratory distress ICD Codes: R06.03 - Acute respiratory distress SNOMED: 825429576 (7) Dyspnea ICD Codes: R06.00 - Dyspnea, unspecified SNOMED: 429733504 (8) Pneumonia ICD Codes: J18.9 - Pneumonia, unspecified organism SNOMED: 784011068 (9) Acute and chronic respiratory failure ICD Codes: J96.20 - Acute and chronic respiratory failure, unspecified whether with hypoxia or hypercapnia SNOMED: 69818619 (10) Diabetes mellitus type 2 in nonobese ICD Codes: E11.9 - Type 2 diabetes mellitus without complications SNOMED: 227132971 (11) CHF (congestive heart failure) ICD Codes: I50.9 - Heart failure, unspecified SNOMED: 24269226 Qualifiers: Qualified Codes: I50.9 - Heart failure, unspecified (12) Hypoxia ICD Codes: R09.02 - Hypoxemia SNOMED: 565437654 (13) Elevated d-dimer ICD Codes: R79.89 - Other specified abnormal findings of blood chemistry SNOMED: 026435977 (14) Schizophrenia ICD Codes: F20.9 - Schizophrenia, unspecified SNOMED: 47542646 (15) Parkinson disease ICD Codes: G20 - Parkinson's disease SNOMED: 58486161 Status: progressing, unchanged Assessment/Plan: afebrile niddm needs fluid managment still on bipap no wheezing obesity covid negative pleural effusion Subjective ROS Limited/Unobtainable: Yes Allergies: Coded Allergies: LITHIUM (Verified Allergy, Unknown, 02/07/19) Objective Last 24 Hour Vital Signs Date Time Temp Pulse Resp B/P (MAP) Pulse Ox O2 Delivery O2 Flow Rate FiO2 12/25/19 21:00 73 23 126/50 (75) 99 12/25/19 20:00 97.8 74 19 138/57 (84) 98 12/25/19 20:00 Bi-pap 12/25/19 20:00 40 12/25/19 19:10 78 22 97 40 12/25/19 19:08 75 12/25/19 19:00 78 21 151/55 (87) 100 12/25/19 18:00 74 20 137/60 (85) 98 12/25/19 17:06 75 23 138/56 (83) 98 12/25/19 16:00 Bi-pap 12/25/19 16:00 75 12/25/19 16:00 35 12/25/19 16:00 98.6 75 18 137/59 (85) 98 12/25/19 15:00 78 25 144/60 (88) 100 12/25/19 14:30 75 23 99 40 12/25/19 14:00 76 25 152/65 (94) 93 12/25/19 13:00 81 25 137/75 (95) 93 12/25/19 12:00 Bi-pap 12/25/19 12:00 96 12/25/19 12:00 95 19 150/53 (85) 92 12/25/19 12:00 35 12/25/19 11:24 77 19 99 35 12/25/19 11:00 85 19 141/56 (84) 99 12/25/19 10:00 79 19 141/47 (78) 96 12/25/19 09:00 83 22 138/62 (87) 100 12/25/19 08:00 Bi-pap 12/25/19 08:00 98.5 79 18 135/51 (79) 12/25/19 08:00 80 12/25/19 08:00 45 12/25/19 07:24 80 16 100 45 12/25/19 07:00 79 20 134/47 (76) 98 12/25/19 06:00 80 21 140/52 (81) 12/25/19 06:00 80 21 140/52 (81) 12/25/19 05:09 78 12/25/19 05:08 Bi-pap 12/25/19 05:00 83 21 149/61 (90) 12/25/19 04:00 97.4 90 25 149/61 (90) 67 12/25/19 04:00 Bi-pap 12/25/19 03:20 81 16 97 50 12/25/19 03:00 92 22 155/54 (87) 100 12/25/19 02:00 75 22 147/56 (86) 99 12/25/19 01:32 50 12/25/19 01:00 77 21 144/52 (82) 96 12/25/19 00:00 Bi-pap 12/25/19 00:00 82 12/25/19 00:00 98.2 76 23 144/58 (86) 99 12/25/19 00:00 50 12/24/19 23:43 80 17 98 50 12/24/19 23:00 82 27 146/59 (88) 98 12/24/19 22:00 79 24 126/49 (74) 98 Intake and Output 12/24/19 12/25/19 19:00 07:00 Intake Total 885.08356 ml 1190.0 ml Output Total 815 ml 925 ml Balance 70.59053 ml 265.0 ml Intake Oral 10 ml IV Total 745.05543 ml 710.0 ml Tube Feeding 80 ml 480 ml Other 50 ml Output Urine Total 815 ml 925 ml Laboratory Tests 12/25/19 08:55: White Blood Count 7.6, Red Blood Count 3.14L, Hemoglobin 10.0L, Hematocrit 31.9L , Mean Corpuscular Volume 102H, Mean Corpuscular Hemoglobin 31.9H, Mean Corpuscular Hemoglobin Concent 31.3L, Red Cell Distribution Width 13.2, Platelet Count 195, Mean Platelet Volume 7.0, Neutrophils (%) (Auto) 79.3H, Lymphocytes (%) (Auto) 13.9L, Monocytes (%) (Auto) 5.8, Eosinophils (%) (Auto) 0.3, Basophils (%) (Auto) 0.7, Sodium Level 145, Potassium Level 4.2, Chloride Level 105, Carbon Dioxide Level 37H, Anion Gap 4L, Blood Urea Nitrogen 28H, Creatinine 0.8, Estimat Glomerular Filtration Rate > 60, Glucose Level 171H, Calcium Level 7.8L, Total Bilirubin 0.6, Aspartate Amino Transf (AST/SGOT) 26, Alanine Aminotransferase (ALT/SGPT) 42, Alkaline Phosphatase 32L, Total Protein 5.9L, Albumin 2.9L, Globulin 3.0, Albumin/Globulin Ratio 1.0, Thyroid Stimulating Hormone (TSH) 14.841H, Free Thyroxine 0.62L 12/25/19 13:30: Arterial Blood pH 7.443, Arterial Blood Partial Pressure CO2 53.5H, Arterial Blood Partial Pressure O2 67.6L, Arterial Blood HCO3 35.8H, Arterial Blood Oxygen Saturation 91.9L, Arterial Blood Base Excess 10.2*H, Raphael Test Positive Height (Feet): 5 Height (Inches): 7.00 Weight (Pounds): 230 Dani Perera MD Dec 25, 2019 21:11
--- NOTE | 2019-12-25 21:24 | NUR ---
NURSE NOTES: PATIENT ASLEEP STATUS, NO PAIN OR SOB NOTED.
--- NOTE | 2019-12-25 23:58 | NUR ---
NURSE NOTES: VSS, NO PAIN OR SOB NOTED AT THIS TIME, WILL CONTINUE PLAN OF CARE.
[2019-12-26] VITALS (24 sets, daily range): BP systolic 106–155; BP diastolic 29–91
--- NOTE | 2019-12-26 01:55 | NUR ---
NURSE NOTES: CONTINUED BIPAP I/E 28/11, FIO2 40%, O2 SATURATION 100% NOTED, WILL CONTINUE TO MONITOR.
--- NOTE | 2019-12-26 04:10 | NUR ---
NURSE NOTES: MORNING CARE AND ORAL CARE WAS DONE, NO BM STATUS, ABDOMEN SOFT, NON TENDER, NO N/V NOTED, ONGOING VITAL AF 1.2 AT 20ML/HR, RESIDUE 30ML NOTED, KEPT HOB OVER 30 DEGREES AND ASPIRATION PRECAUTION, WILL CONTINUE TO MONITOR.
[2019-12-26] MEDS: Solu-MEDROL 40mg Inj IVP SCH ×4 (05:30→23:28)
[2019-12-26] MEDS: NovoLOG Insulin Flexpen SUBQ SCH ×4 (05:32→23:31)
--- NOTE | 2019-12-26 06:08 | NUR ---
NURSE NOTES: PATIENT ASLEEP STATUS, NO ACUTE DISTRESS NOTED AT THIS SHIFT.
--- NOTE | 2019-12-26 06:29 | General Progress Note ---
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 - Other specified diabetes mellitus without complications SNOMED: 023804091 (2) Parkinson disease ICD Codes: G20 - Parkinson's disease SNOMED: 39009677 (3) Schizophrenia ICD Codes: F20.9 - Schizophrenia, unspecified SNOMED: 38682850 (4) Hypertension ICD Codes: I10 - Essential (primary) hypertension SNOMED: 96184337 (5) Respiratory failure ICD Codes: J96.90 - Respiratory failure, unspecified, unspecified whether with hypoxia or hypercapnia SNOMED: 258701913 (6) Hypothyroidism ICD Codes: E03.9 - Hypothyroidism, unspecified SNOMED: 71309335 Status: progressing, unchanged Assessment/Plan: TSH improved - continue Levothyroxine 75 mcg IV daily continue Novolog sliding scale every 6 hours hypoglycemia protocol in order Subjective ROS Limited/Unobtainable: Yes Allergies: Coded Allergies: LITHIUM (Verified Allergy, Unknown, 02/07/19) Subjective events noted in ICU on TF glucose values are stable TSH improved Item Value Date Time Bedside Blood Glucose 156 mg/dl H 12/26/19 0532 Bedside Blood Glucose 154 mg/dl H 12/25/19 2344 Bedside Blood Glucose 142 mg/dl H 12/25/19 1800 Bedside Blood Glucose 126 mg/dl H 12/25/19 1200 Bedside Blood Glucose 159 mg/dl H 12/25/19 0600 Bedside Blood Glucose 126 mg/dl H 12/25/19 0000 Objective Last 24 Hour Vital Signs Date Time Temp Pulse Resp B/P (MAP) Pulse Ox O2 Delivery O2 Flow Rate FiO2 12/26/19 06:00 73 16 127/52 (77) 100 12/26/19 05:00 74 19 122/47 (72) 98 12/26/19 04:00 40 12/26/19 04:00 82 12/26/19 04:00 Bi-pap 12/26/19 04:00 97.7 82 25 134/49 (77) 99 12/26/19 03:15 71 15 99 40 12/26/19 03:00 68 19 151/65 (93) 100 12/26/19 02:00 72 20 138/59 (85) 100 12/26/19 01:00 69 21 140/51 (80) 99 12/26/19 00:00 40 12/26/19 00:00 Bi-pap 12/26/19 00:00 98.0 75 21 131/55 (80) 98 12/26/19 00:00 75 12/25/19 23:05 72 22 96 40 12/25/19 23:00 74 20 132/56 (81) 99 12/25/19 22:00 76 22 140/52 (81) 97 12/25/19 21:00 73 23 126/50 (75) 99 12/25/19 20:53 20 126/50 Bi-pap 40 12/25/19 20:00 97.8 74 19 138/57 (84) 98 12/25/19 20:00 Bi-pap 12/25/19 20:00 40 12/25/19 19:10 78 22 97 40 12/25/19 19:08 75 12/25/19 19:00 78 21 151/55 (87) 100 12/25/19 18:00 74 20 137/60 (85) 98 12/25/19 17:06 75 23 138/56 (83) 98 12/25/19 16:00 Bi-pap 12/25/19 16:00 75 12/25/19 16:00 35 12/25/19 16:00 98.6 75 18 137/59 (85) 98 12/25/19 15:00 78 25 144/60 (88) 100 12/25/19 14:30 75 23 99 40 12/25/19 14:00 76 25 152/65 (94) 93 12/25/19 13:00 81 25 137/75 (95) 93 12/25/19 12:00 Bi-pap 12/25/19 12:00 96 12/25/19 12:00 95 19 150/53 (85) 92 12/25/19 12:00 35 12/25/19 11:24 77 19 99 35 12/25/19 11:00 85 19 141/56 (84) 99 12/25/19 10:00 79 19 141/47 (78) 96 12/25/19 09:00 83 22 138/62 (87) 100 12/25/19 08:00 Bi-pap 12/25/19 08:00 98.5 79 18 135/51 (79) 12/25/19 08:00 80 12/25/19 08:00 45 12/25/19 07:24 80 16 100 45 12/25/19 07:00 79 20 134/47 (76) 98 Intake and Output 12/25/19 12/26/19 19:00 07:00 Intake Total 1035 ml 840 ml Output Total 770 ml 715 ml Balance 265 ml 125 ml Free Water 100 ml IV Total 575 ml 550 ml Tube Feeding 360 ml 140 ml Other 150 ml Output Urine Total 770 ml 715 ml Laboratory Tests 12/25/19 08:55: White Blood Count 7.6, Red Blood Count 3.14L, Hemoglobin 10.0L, Hematocrit 31.9L , Mean Corpuscular Volume 102H, Mean Corpuscular Hemoglobin 31.9H, Mean Corpuscular Hemoglobin Concent 31.3L, Red Cell Distribution Width 13.2, Platelet Count 195, Mean Platelet Volume 7.0, Neutrophils (%) (Auto) 79.3H, Lymphocytes (%) (Auto) 13.9L, Monocytes (%) (Auto) 5.8, Eosinophils (%) (Auto) 0.3, Basophils (%) (Auto) 0.7, Sodium Level 145, Potassium Level 4.2, Chloride Level 105, Carbon Dioxide Level 37H, Anion Gap 4L, Blood Urea Nitrogen 28H, Creatinine 0.8, Estimat Glomerular Filtration Rate > 60, Glucose Level 171H, Calcium Level 7.8L, Total Bilirubin 0.6, Aspartate Amino Transf (AST/SGOT) 26, Alanine Aminotransferase (ALT/SGPT) 42, Alkaline Phosphatase 32L, Total Protein 5.9L, Albumin 2.9L, Globulin 3.0, Albumin/Globulin Ratio 1.0, Thyroid Stimulating Hormone (TSH) 14.841H, Free Thyroxine 0.62L 12/25/19 13:30: Arterial Blood pH 7.443, Arterial Blood Partial Pressure CO2 53.5H, Arterial Blood Partial Pressure O2 67.6L, Arterial Blood HCO3 35.8H, Arterial Blood Oxygen Saturation 91.9L, Arterial Blood Base Excess 10.2*H, Raphael Test Positive 12/25/19 23:37: POC Whole Blood Glucose 154H Height (Feet): 5 Height (Inches): 7.00 Weight (Pounds): 225 General Appearance: lethargic Neck: normal alignment Cardiovascular: tachycardia Respiratory/Chest: decreased breath sounds Abdomen: normal bowel sounds Objective Current Medications Medications (Trade) Dose Ordered Sig/Angie Route PRN Reason Start Time Stop Time Status Last Admin Dose Admin Acetaminophen (Tylenol) 650 mg Q6H PRN ORAL Mild Pain (Pain Scale 1-3) 12/12/19 12:30 01/11/20 12:29 12/22/19 20:56 Acetaminophen (Tylenol) 1,000 mg Q6H PRN ORAL MODERATE PAIN 12/12/19 12:30 01/11/20 12:29 Amantadine HCl (Symmetrel) 100 mg TWICE A DAY ORAL 12/22/19 18:00 01/11/20 08:59 12/25/19 17:41 Aspirin (ASA) 324 mg DAILY ORAL 12/23/19 09:00 02/04/20 08:59 12/25/19 08:56 Atorvastatin Calcium (Lipitor) 10 mg BEDTIME ORAL 12/22/19 21:00 03/11/20 20:59 12/25/19 20:29 Calcium Carbonate (Os-Octavio) 500 mg THREE TIMES A DAY ORAL 12/22/19 13:00 03/20/20 17:59 12/25/19 17:41 Clonidine HCl (Catapres Tab) 0.1 mg Q6H PRN GT For high BP over 160 systolic 12/15/19 16:30 03/11/20 12:30 12/24/19 01:47 Dextrose 1,000 ml @ 50 mls/hr Q20H IV 12/22/19 09:00 01/21/20 08:59 12/25/19 14:30 Dextrose (Dextrose 50%) 25 ml Q30M PRN IV Hypoglycemia 12/13/19 07:15 03/12/20 07:14 Dextrose (Dextrose 50%) 50 ml Q30M PRN IV Hypoglycemia 12/13/19 07:15 03/12/20 07:14 Divalproex Sodium (Depakote) 250 mg EVERY 12 HOURS ORAL 12/22/19 21:00 01/12/20 20:59 12/25/19 20:29 Docusate Sodium (Colace) 100 mg TWICE A DAY ORAL 12/22/19 18:00 01/14/20 17:59 12/25/19 17:41 Fentanyl Citrate 250 ml @ 0 mls/hr Q24H IV 12/18/19 20:53 03/17/20 20:52 12/19/19 20:56 Insulin Aspart (NovoLOG) EVERY 6 HOURS SUBQ 12/13/19 12:00 03/12/20 11:59 12/26/19 05:32 Lactulose (Cephulac) 20 gm BID ORAL 12/25/19 09:00 01/24/20 08:59 12/25/19 17:42 Levothyroxine Sodium (Synthroid) 75 mcg DAILY IV 12/13/19 09:00 01/11/20 09:29 12/25/19 08:56 Methylprednisolone Sodium Succinate (Solu-MEDROL) 20 mg EVERY 6 HOURS IVP 12/22/19 12:00 03/18/20 11:59 12/26/19 05:30 Nitroglycerin (Ntg) 0.4 mg Q5MIN X 3 DOSES PRN SL CHEST PAIN 12/12/19 12:00 01/10/20 21:44 Pantoprazole (Protonix) 40 mg EVERY 12 HOURS IVP 12/14/19 09:00 01/13/20 08:59 12/25/19 20:30 Phosphorus (Phospha 250 Neutral) 250 mg THREE TIMES A DAY ORAL 12/22/19 13:00 01/14/20 08:59 12/25/19 17:41 Polyethylene Glycol (Miralax) 17 gm BEDTIME ORAL 12/22/19 21:00 01/18/20 20:59 12/25/19 20:30 Polyethylene Glycol (Miralax) 17 gm DAILYPRN PRN ORAL Constipation 12/24/19 19:00 01/23/20 18:59 Quetiapine Fumarate (SEROqueL) 50 mg Q12HR ORAL 12/22/19 21:00 02/05/20 20:59 12/25/19 20:29 Jabari Adams MD Dec 26, 2019 06:29
--- NOTE | 2019-12-26 07:18 | NUR ---
HAND-OFF: Report given to DARREL LYNN.
--- NOTE | 2019-12-26 07:19 | NUR ---
NURSE NOTES: Received report from DARREL Singer. Patient is on bipap 18/6 with FIO2 40%. O2 sat 99% on the monitor. Left NGT intact and running with Vital AF 1.2 @20ml/hr at this time, Goal is 55ml/hr. Left wrist 22G IV intact and running with D5W @ 50ml/hr. Right forearm 20G intact and clamped. Bilateral soft wrist bands restraints on. Both hands are warm to touch. Kept dry, clean, comfortable and HOB>30. Will continue plan of care.
--- NOTE | 2019-12-26 07:28 | NUR ---
RESPIRATORY NOTE: took pt off bipap and placed on VM 8L 40% fio2. no signs of resp distress at this time. bipap on s/b. no visible redness or skin irritation around facial area. will cont to monitor.
--- NOTE | 2019-12-26 07:30 | NUR ---
NURSE NOTES: Put on Venturi mask with FiO2 40% per RT. Will continue to monitor closely.
--- NOTE | 2019-12-26 08:20 | Hematology/Onc Progress Note ---
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 ( combination of moderate aortic regurgitation and severe mitral regurgitation) --> diuresis as per cards --> lasix last time # Severe ascending aortic dilatation --> per Dr Keke campbell # Hypertension # Parkinson disease # Hyperlipidemia # Hypothyroidism # Dementia # Obesity # Sch[facility]ia [facility] # Dvt ppx lovenox sq/scd's Appreciate home service consultant care and alexei Rn Subjective Respiratory: Denies: no symptoms, cough, shortness of breath, SOB with excertion, SOB at rest, sputum, wheezing, other Gastrointestinal/Abdominal: Denies: no symptoms, abdomen distended, abdominal pain, black stools, tarry stools, blood in stool, constipated, diarrhea, difficulty swallowing, nausea, poor appetite, poor fluid intake, rectal bleeding , vomiting, other Genitourinary: Denies: no symptoms, burning, discharge, frequency, flank pain, hematuria, incontinence, pain, urgency, other Allergies: Coded Allergies: LITHIUM (Verified Allergy, Unknown, 02/07/19) All Systems: reviewed and negative except above Subjective 7/2 labs are reviewed, intubated, with og, somewhat responsive, alexei rn 7/3 labs noted, hgb 7.8, tfs ok to start per gi / icu, restraints, no acute events, hep panel negative, sedated 12/16 no bleeding, in the icu, on abx, in restarints, sleepy, vent 12/17 is on vent, also is on abx, awake, with ogt 12/18 ng placed, hgb 9.6, no bleeding, no night sweats 12/19 labs reviewed, sedated, on vent, nob leeding, meds reviewed 12/20 remains on vent, audra bleeding, meds reviewed, no night sweats 12/22 hgb 9.5, to get zosyn x 1 more day, no night sweats meds reviewed 12/23 labs noted, no bleeding, with fm, no bleeding or night sweats 12/24 no bleeding, labs noted, no night sweats hgb 10, no hemolysis 12/25 remains fatigued, fm, labs are still pending from am Objective Objective Current Medications Medications (Trade) Dose Ordered Sig/Angie Route PRN Reason Start Time Stop Time Status Last Admin Dose Admin Acetaminophen (Tylenol) 650 mg Q6H PRN ORAL Mild Pain (Pain Scale 1-3) 12/12/19 12:30 01/11/20 12:29 12/22/19 20:56 Acetaminophen (Tylenol) 1,000 mg Q6H PRN ORAL MODERATE PAIN 12/12/19 12:30 01/11/20 12:29 Amantadine HCl (Symmetrel) 100 mg TWICE A DAY ORAL 12/22/19 18:00 01/11/20 08:59 12/25/19 17:41 Aspirin (ASA) 324 mg DAILY ORAL 12/23/19 09:00 02/04/20 08:59 12/25/19 08:56 Atorvastatin Calcium (Lipitor) 10 mg BEDTIME ORAL 12/22/19 21:00 03/11/20 20:59 12/25/19 20:29 Calcium Carbonate (Os-Octavio) 500 mg THREE TIMES A DAY ORAL 12/22/19 13:00 03/20/20 17:59 12/25/19 17:41 Clonidine HCl (Catapres Tab) 0.1 mg Q6H PRN GT For high BP over 160 systolic 12/15/19 16:30 03/11/20 12:30 12/24/19 01:47 Dextrose 1,000 ml @ 50 mls/hr Q20H IV 12/22/19 09:00 01/21/20 08:59 12/25/19 14:30 Dextrose (Dextrose 50%) 25 ml Q30M PRN IV Hypoglycemia 12/13/19 07:15 03/12/20 07:14 Dextrose (Dextrose 50%) 50 ml Q30M PRN IV Hypoglycemia 12/13/19 07:15 03/12/20 07:14 Divalproex Sodium (Depakote) 250 mg EVERY 12 HOURS ORAL 12/22/19 21:00 01/12/20 20:59 12/25/19 20:29 Docusate Sodium (Colace) 100 mg TWICE A DAY ORAL 12/22/19 18:00 01/14/20 17:59 12/25/19 17:41 Fentanyl Citrate 250 ml @ 0 mls/hr Q24H IV 12/18/19 20:53 03/17/20 20:52 12/19/19 20:56 Insulin Aspart (NovoLOG) EVERY 6 HOURS SUBQ 12/13/19 12:00 03/12/20 11:59 12/26/19 05:32 Lactulose (Cephulac) 20 gm BID ORAL 12/25/19 09:00 01/24/20 08:59 12/25/19 17:42 Levothyroxine Sodium (Synthroid) 75 mcg DAILY IV 12/13/19 09:00 01/11/20 09:29 12/25/19 08:56 Methylprednisolone Sodium Succinate (Solu-MEDROL) 20 mg EVERY 6 HOURS IVP 12/22/19 12:00 03/18/20 11:59 12/26/19 05:30 Nitroglycerin (Ntg) 0.4 mg Q5MIN X 3 DOSES PRN SL CHEST PAIN 12/12/19 12:00 01/10/20 21:44 Pantoprazole (Protonix) 40 mg EVERY 12 HOURS IVP 12/14/19 09:00 01/13/20 08:59 12/25/19 20:30 Phosphorus (Phospha 250 Neutral) 250 mg THREE TIMES A DAY ORAL 12/22/19 13:00 01/14/20 08:59 12/25/19 17:41 Polyethylene Glycol (Miralax) 17 gm BEDTIME ORAL 12/22/19 21:00 01/18/20 20:59 12/25/19 20:30 Polyethylene Glycol (Miralax) 17 gm DAILYPRN PRN ORAL Constipation 12/24/19 19:00 01/23/20 18:59 Quetiapine Fumarate (SEROqueL) 50 mg Q12HR ORAL 12/22/19 21:00 02/05/20 20:59 12/25/19 20:29 Last 24 Hour Vital Signs Date Time Temp Pulse Resp B/P (MAP) Pulse Ox O2 Delivery O2 Flow Rate FiO2 12/26/19 07:00 65 12 118/43 (68) 93 12/26/19 06:00 73 16 127/52 (77) 100 12/26/19 05:00 74 19 122/47 (72) 98 12/26/19 04:00 40 12/26/19 04:00 82 12/26/19 04:00 Bi-pap 12/26/19 04:00 97.7 82 25 134/49 (77) 99 12/26/19 03:15 71 15 99 40 12/26/19 03:00 68 19 151/65 (93) 100 12/26/19 02:00 72 20 138/59 (85) 100 12/26/19 01:00 69 21 140/51 (80) 99 12/26/19 00:00 40 12/26/19 00:00 Bi-pap 12/26/19 00:00 98.0 75 21 131/55 (80) 98 12/26/19 00:00 75 12/25/19 23:05 72 22 96 40 12/25/19 23:00 74 20 132/56 (81) 99 12/25/19 22:00 76 22 140/52 (81) 97 12/25/19 21:00 73 23 126/50 (75) 99 12/25/19 20:53 20 126/50 Bi-pap 40 12/25/19 20:00 97.8 74 19 138/57 (84) 98 12/25/19 20:00 Bi-pap 12/25/19 20:00 40 12/25/19 19:10 78 22 97 40 12/25/19 19:08 75 12/25/19 19:00 78 21 151/55 (87) 100 12/25/19 18:00 74 20 137/60 (85) 98 12/25/19 17:06 75 23 138/56 (83) 98 12/25/19 16:00 Bi-pap 12/25/19 16:00 75 12/25/19 16:00 35 12/25/19 16:00 98.6 75 18 137/59 (85) 98 12/25/19 15:00 78 25 144/60 (88) 100 12/25/19 14:30 75 23 99 40 12/25/19 14:00 76 25 152/65 (94) 93 12/25/19 13:00 81 25 137/75 (95) 93 12/25/19 12:00 Bi-pap 12/25/19 12:00 96 12/25/19 12:00 95 19 150/53 (85) 92 12/25/19 12:00 35 12/25/19 11:24 77 19 99 35 12/25/19 11:00 85 19 141/56 (84) 99 12/25/19 10:00 79 19 141/47 (78) 96 12/25/19 09:00 83 22 138/62 (87) 100 12/25/19 08:00 Bi-pap 12/25/19 08:00 98.5 79 18 135/51 (79) 12/25/19 08:00 80 12/25/19 08:00 45 12/25/19 07:24 80 16 100 45 12/25/19 07:00 79 20 134/47 (76) 98 12/25/19 06:00 80 21 140/52 (81) 12/25/19 06:00 80 21 140/52 (81) 12/25/19 05:09 78 12/25/19 05:08 Bi-pap 12/25/19 05:00 83 21 149/61 (90) 12/25/19 04:00 97.4 90 25 149/61 (90) 67 12/25/19 04:00 Bi-pap 12/25/19 03:20 81 16 97 50 12/25/19 03:00 92 22 155/54 (87) 100 12/25/19 02:00 75 22 147/56 (86) 99 12/25/19 01:32 50 12/25/19 01:00 77 21 144/52 (82) 96 12/25/19 00:00 Bi-pap 12/25/19 00:00 82 12/25/19 00:00 98.2 76 23 144/58 (86) 99 12/25/19 00:00 50 12/24/19 23:43 80 17 98 50 12/24/19 23:00 82 27 146/59 (88) 98 12/24/19 22:00 79 24 126/49 (74) 98 12/24/19 21:00 84 24 151/64 (93) 98 12/24/19 20:03 81 16 100 50 12/24/19 20:00 Bi-pap 12/24/19 20:00 98.4 81 23 145/59 (87) 99 12/24/19 20:00 50 12/24/19 20:00 86 12/24/19 19:00 82 21 148/56 (86) 100 12/24/19 18:00 98.5 82 24 152/52 (85) 100 12/24/19 17:00 79 22 146/59 (88) 100 12/24/19 16:00 80 22 152/64 (93) 100 12/24/19 16:00 50 12/24/19 16:00 Bi-pap 12/24/19 16:00 80 12/24/19 15:28 82 18 100 50 12/24/19 15:00 75 22 138/53 (81) 100 12/24/19 14:00 80 25 141/53 (82) 99 12/24/19 13:00 85 20 143/55 (84) 12/24/19 12:00 Bi-pap 12/24/19 12:00 50 12/24/19 12:00 85 12/24/19 12:00 98.5 85 25 156/66 (96) 99 12/24/19 11:27 76 14 100 50 12/24/19 11:00 80 23 148/61 (90) 100 12/24/19 10:00 76 17 141/59 (86) 99 12/24/19 09:00 74 21 127/53 (77) 99 12/24/19 08:30 82 21 114/44 (67) Intake and Output 12/25/19 12/26/19 19:00 07:00 Intake Total 1035 ml 910 ml Output Total 770 ml 765 ml Balance 265 ml 145 ml Free Water 100 ml IV Total 575 ml 600 ml Tube Feeding 360 ml 160 ml Other 150 ml Output Urine Total 770 ml 765 ml Labs Test 12/24/19 05:55 12/24/19 08:07 12/25/19 08:55 12/25/19 13:30 White Blood Count 8.3 K/UL (4.8-10.8) 7.6 K/UL (4.8-10.8) Red Blood Count 2.95 M/UL (4.20-5.40) 3.14 M/UL (4.20-5.40) Hemoglobin 9.5 G/DL (12.0-16.0) 10.0 G/DL (12.0-16.0) Hematocrit 30.8 % (37.0-47.0) 31.9 % (37.0-47.0) Mean Corpuscular Volume 104 FL (80-99) 102 FL (80-99) Mean Corpuscular Hemoglobin 32.4 PG (27.0-31.0) 31.9 PG (27.0-31.0) Mean Corpuscular Hemoglobin Concent 31.0 G/DL (32.0-36.0) 31.3 G/DL (32.0-36.0) Red Cell Distribution Width 13.3 % (11.6-14.8) 13.2 % (11.6-14.8) Platelet Count 181 K/UL (150-450) 195 K/UL (150-450) Mean Platelet Volume 6.3 FL (6.5-10.1) 7.0 FL (6.5-10.1) Neutrophils (%) (Auto) 82.4 % (45.0-75.0) 79.3 % (45.0-75.0) Lymphocytes (%) (Auto) 12.1 % (20.0-45.0) 13.9 % (20.0-45.0) Monocytes (%) (Auto) 5.1 % (1.0-10.0) 5.8 % (1.0-10.0) Eosinophils (%) (Auto) 0.1 % (0.0-3.0) 0.3 % (0.0-3.0) Basophils (%) (Auto) 0.3 % (0.0-2.0) 0.7 % (0.0-2.0) Sodium Level 146 MMOL/L (136-145) 145 MMOL/L (136-145) Potassium Level 4.5 MMOL/L (3.5-5.1) 4.2 MMOL/L (3.5-5.1) Chloride Level 107 MMOL/L (98-107) 105 MMOL/L (98-107) Carbon Dioxide Level 37 MMOL/L (21-32) 37 MMOL/L (21-32) Anion Gap 2 mmol/L (5-15) 4 mmol/L (5-15) Blood Urea Nitrogen 31 mg/dL (7-18) 28 mg/dL (7-18) Creatinine 0.9 MG/DL (0.55-1.30) 0.8 MG/DL (0.55-1.30) Estimat Glomerular Filtration Rate > 60 mL/min (>60) > 60 mL/min (>60) Glucose Level 158 MG/DL (74-106) 171 MG/DL (74-106) Uric Acid 2.7 MG/DL (2.6-7.2) Calcium Level 8.7 MG/DL (8.5-10.1) 7.8 MG/DL (8.5-10.1) Phosphorus Level 3.3 MG/DL (2.5-4.9) Magnesium Level 2.3 MG/DL (1.8-2.4) Total Bilirubin 0.7 MG/DL (0.2-1.0) 0.6 MG/DL (0.2-1.0) Aspartate Amino Transf (AST/SGOT) 20 U/L (15-37) 26 U/L (15-37) Alanine Aminotransferase (ALT/SGPT) 34 U/L (12-78) 42 U/L (12-78) Alkaline Phosphatase 32 U/L (46-116) 32 U/L (46-116) Total Protein 6.1 G/DL (6.4-8.2) 5.9 G/DL (6.4-8.2) Albumin 2.9 G/DL (3.4-5.0) 2.9 G/DL (3.4-5.0) Globulin 3.2 g/dL 3.0 g/dL Albumin/Globulin Ratio 0.9 (1.0-2.7) 1.0 (1.0-2.7) Arterial Blood pH 7.410 (7.350-7.450) 7.443 (7.350-7.450) Arterial Blood Partial Pressure CO2 53.2 mmHg (35.0-45.0) 53.5 mmHg (35.0-45.0) Arterial Blood Partial Pressure O2 88.1 mmHg (75.0-100.0) 67.6 mmHg (75.0-100.0) Arterial Blood HCO3 33.0 mmol/L (22.0-26.0) 35.8 mmol/L (22.0-26.0) Arterial Blood Oxygen Saturation 95.7 % (95-100) 91.9 % (95-100) Arterial Blood Base Excess 7.2 (-2-2) 10.2 (-2-2) Raphael Test Positive Positive Thyroid Stimulating Hormone (TSH) 14.841 uiU/mL (0.358-3.740) Free Thyroxine 0.62 NG/DL (0.76-1.46) Test 12/25/19 23:37 POC Whole Blood Glucose 154 MG/DL (74-106) Height (Feet): 5 Height (Inches): 7.00 Weight (Pounds): 225 Objective Vitals: reviewed General: NAD HEENT: nc, at ++ogt Neck: supple ++intubated Chest: decreased breath sounds bilaterally Cardiovascular: RRR, no s3, s4 Abdomen: soft, nontender, nd Extremities: 1-2 + edema, scd's Neuro: nonverbal : Frank Kelly MD Dec 26, 2019 08:20
[2019-12-26] MEDS: Lactulose 20gm/30ml UDC ORAL SCH ×2 (08:56→17:40)
[2019-12-26] MEDS: Pantoprazole Inj IVP SCH ×2 (08:56→20:41)
[2019-12-26] MEDS: Os-Cal (Oyster Shell) 500mg tab ORAL SCH ×3 (08:57→17:40)
[2019-12-26] MEDS: Aspirin Baby 81mg ORAL SCH (08:57)
[2019-12-26] MEDS: Docusate 100mg cap ORAL SCH ×2 (08:57→17:41)
[2019-12-26] MEDS: Amantadine 100mg cap ORAL SCH ×2 (08:57→17:40)
[2019-12-26] MEDS: Phospha 250 Neutral tab ORAL SCH ×3 (08:57→17:41)
--- NOTE | 2019-12-26 09:15 | NUR ---
NURSE NOTES: Seen by Dr. Myers and assessed patient.
[2019-12-26 09:23] LABS: BASOPHILS % (AUTO) 0.6 % (0.0-2.0); HEMATOCRIT 33.8 % (37.0-47.0); HEMOGLOBIN 10.7 G/DL (12.0-16.0); LYMPHOCYTES % (AUTO) 9.5 % (20.0-45.0); MEAN CORPUSCULAR VOLUME 100 FL (80-99); NEUTROPHILS % (AUTO) 84.9 % (45.0-75.0); PLATELET COUNT 216 K/UL (150-450); RED BLOOD COUNT 3.37 M/UL (4.20-5.40); RED CELL DISTRIBUTION WIDTH 12.6 % (11.6-14.8); WHITE BLOOD COUNT 8.8 K/UL (4.8-10.8)
--- NOTE | 2019-12-26 09:39 | Pulmonology Progress Note ---
Subjective ROS Limited/Unobtainable: Yes Interval Events: Extubated 12/21/19; now on BiPAP; did well on VENTIMASK Constitutional: Denies: fever HEENT: Repors: no symptoms Respiratory: Reports: no symptoms Cardiovascular: Reports: no symptoms Gastrointestinal/Abdominal: Reports: no symptoms Genitourinary: Reports: no symptoms Allergies: Coded Allergies: LITHIUM (Verified Allergy, Unknown, 02/07/19) All Systems: reviewed and negative except above Objective Last 24 Hour Vital Signs Date Time Temp Pulse Resp B/P (MAP) Pulse Ox O2 Delivery O2 Flow Rate FiO2 12/26/19 07:00 65 12 118/43 (68) 93 12/26/19 06:00 73 16 127/52 (77) 100 12/26/19 05:00 74 19 122/47 (72) 98 12/26/19 04:00 40 12/26/19 04:00 82 12/26/19 04:00 Bi-pap 12/26/19 04:00 97.7 82 25 134/49 (77) 99 12/26/19 03:15 71 15 99 40 12/26/19 03:00 68 19 151/65 (93) 100 12/26/19 02:00 72 20 138/59 (85) 100 12/26/19 01:00 69 21 140/51 (80) 99 12/26/19 00:00 40 12/26/19 00:00 Bi-pap 12/26/19 00:00 98.0 75 21 131/55 (80) 98 12/26/19 00:00 75 12/25/19 23:05 72 22 96 40 12/25/19 23:00 74 20 132/56 (81) 99 12/25/19 22:00 76 22 140/52 (81) 97 12/25/19 21:00 73 23 126/50 (75) 99 12/25/19 20:53 20 126/50 Bi-pap 40 12/25/19 20:00 97.8 74 19 138/57 (84) 98 12/25/19 20:00 Bi-pap 12/25/19 20:00 40 12/25/19 19:10 78 22 97 40 12/25/19 19:08 75 12/25/19 19:00 78 21 151/55 (87) 100 12/25/19 18:00 74 20 137/60 (85) 98 12/25/19 17:06 75 23 138/56 (83) 98 12/25/19 16:00 Bi-pap 12/25/19 16:00 75 12/25/19 16:00 35 12/25/19 16:00 98.6 75 18 137/59 (85) 98 12/25/19 15:00 78 25 144/60 (88) 100 12/25/19 14:30 75 23 99 40 12/25/19 14:00 76 25 152/65 (94) 93 12/25/19 13:00 81 25 137/75 (95) 93 12/25/19 12:00 Bi-pap 12/25/19 12:00 96 12/25/19 12:00 95 19 150/53 (85) 92 12/25/19 12:00 35 12/25/19 11:24 77 19 99 35 12/25/19 11:00 85 19 141/56 (84) 99 12/25/19 10:00 79 19 141/47 (78) 96 Intake and Output 12/25/19 12/26/19 19:00 07:00 Intake Total 1035 ml 910 ml Output Total 770 ml 765 ml Balance 265 ml 145 ml Free Water 100 ml IV Total 575 ml 600 ml Tube Feeding 360 ml 160 ml Other 150 ml Output Urine Total 770 ml 765 ml General Appearance: no acute distress Respiratory: chest wall non-tender, lungs clear Cardiovascular: normal peripheral pulses, normal rate Abdomen: normal bowel sounds Laboratory Tests 12/25/19 13:30: Arterial Blood pH 7.443, Arterial Blood Partial Pressure CO2 53.5H, Arterial Blood Partial Pressure O2 67.6L, Arterial Blood HCO3 35.8H, Arterial Blood Oxygen Saturation 91.9L, Arterial Blood Base Excess 10.2*H, Raphael Test Positive 12/25/19 23:37: POC Whole Blood Glucose 154H 12/26/19 08:50: White Blood Count 8.8, Red Blood Count 3.37L, Hemoglobin 10.7L, Hematocrit 33.8L , Mean Corpuscular Volume 100H, Mean Corpuscular Hemoglobin 31.7H, Mean Corpuscular Hemoglobin Concent 31.6L, Red Cell Distribution Width 12.6, Platelet Count 216, Mean Platelet Volume 7.6, Neutrophils (%) (Auto) 84.9H, Lymphocytes (%) (Auto) 9.5L, Monocytes (%) (Auto) 5.0, Eosinophils (%) (Auto) 0.0, Basophils (%) (Auto) 0.6, Sodium Level [Pending], Potassium Level [Pending] , Chloride Level [Pending], Carbon Dioxide Level [Pending], Blood Urea Nitrogen [Pending], Creatinine [Pending], Estimat Glomerular Filtration Rate [Pending], Glucose Level [Pending], Calcium Level [Pending], Total Bilirubin [Pending], Aspartate Amino Transf (AST/SGOT) [Pending], Alanine Aminotransferase (ALT/SGPT ) [Pending], Alkaline Phosphatase [Pending], Total Protein [Pending], Albumin [ Pending], Globulin [Pending] Current Medications Medications (Trade) Dose Ordered Sig/Angie Route PRN Reason Start Time Stop Time Status Last Admin Dose Admin Acetaminophen (Tylenol) 650 mg Q6H PRN ORAL Mild Pain (Pain Scale 1-3) 12/12/19 12:30 01/11/20 12:29 12/22/19 20:56 Acetaminophen (Tylenol) 1,000 mg Q6H PRN ORAL MODERATE PAIN 12/12/19 12:30 01/11/20 12:29 Amantadine HCl (Symmetrel) 100 mg TWICE A DAY ORAL 12/22/19 18:00 01/11/20 08:59 12/26/19 08:57 Aspirin (ASA) 324 mg DAILY ORAL 12/23/19 09:00 02/04/20 08:59 12/26/19 08:57 Atorvastatin Calcium (Lipitor) 10 mg BEDTIME ORAL 12/22/19 21:00 03/11/20 20:59 12/25/19 20:29 Calcium Carbonate (Os-Octavio) 500 mg THREE TIMES A DAY ORAL 12/22/19 13:00 03/20/20 17:59 12/26/19 08:57 Clonidine HCl (Catapres Tab) 0.1 mg Q6H PRN GT For high BP over 160 systolic 12/15/19 16:30 03/11/20 12:30 12/24/19 01:47 Dextrose 1,000 ml @ 50 mls/hr Q20H IV 12/22/19 09:00 01/21/20 08:59 12/25/19 14:30 Dextrose (Dextrose 50%) 25 ml Q30M PRN IV Hypoglycemia 12/13/19 07:15 03/12/20 07:14 Dextrose (Dextrose 50%) 50 ml Q30M PRN IV Hypoglycemia 12/13/19 07:15 03/12/20 07:14 Divalproex Sodium (Depakote) 250 mg EVERY 12 HOURS ORAL 12/22/19 21:00 01/12/20 20:59 12/26/19 08:57 Docusate Sodium (Colace) 100 mg TWICE A DAY ORAL 12/22/19 18:00 01/14/20 17:59 12/26/19 08:57 Fentanyl Citrate 250 ml @ 0 mls/hr Q24H IV 12/18/19 20:53 03/17/20 20:52 12/19/19 20:56 Insulin Aspart (NovoLOG) EVERY 6 HOURS SUBQ 12/13/19 12:00 03/12/20 11:59 12/26/19 05:32 Lactulose (Cephulac) 20 gm BID ORAL 12/25/19 09:00 01/24/20 08:59 12/26/19 08:56 Levothyroxine Sodium (Synthroid) 75 mcg DAILY IV 12/13/19 09:00 01/11/20 09:29 12/26/19 09:08 Methylprednisolone Sodium Succinate (Solu-MEDROL) 20 mg EVERY 6 HOURS IVP 12/22/19 12:00 03/18/20 11:59 12/26/19 05:30 Nitroglycerin (Ntg) 0.4 mg Q5MIN X 3 DOSES PRN SL CHEST PAIN 12/12/19 12:00 01/10/20 21:44 Pantoprazole (Protonix) 40 mg EVERY 12 HOURS IVP 12/14/19 09:00 01/13/20 08:59 12/26/19 08:56 Phosphorus (Phospha 250 Neutral) 250 mg THREE TIMES A DAY ORAL 12/22/19 13:00 01/14/20 08:59 12/26/19 08:57 Polyethylene Glycol (Miralax) 17 gm BEDTIME ORAL 12/22/19 21:00 01/18/20 20:59 12/25/19 20:30 Polyethylene Glycol (Miralax) 17 gm DAILYPRN PRN ORAL Constipation 12/24/19 19:00 01/23/20 18:59 Quetiapine Fumarate (SEROqueL) 50 mg Q12HR ORAL 12/22/19 21:00 02/05/20 20:59 12/26/19 08:57 Assessment/Plan Assessment/Plan IMPRESSION: 1. Respiratory failure. Now on BiPAP 2. Has healthcare-associated pneumonia; is negative for COVID-19. 3. Psych disorder. 4. Obesity. 5. Hypertension. 6. Hypernatremia DISCUSSION: Continue broad spectrum antibiotics. Off olanzepine Has negative COVID-19 swab. Switched to Seroquel Will continue ventimask today and use BiPAp as backup Emerita aFn Omar Syed MD Dec 26, 2019 09:39
[2019-12-26 09:46] LABS: ALANINE AMINOTRANSFERASE 39 U/L (12-78); ALBUMIN 3.1 G/DL (3.4-5.0); ALKALINE PHOSPHATASE 34 U/L (46-116); ANION GAP 2 mmol/L (5-15); ASPARTATE AMINO TRANSFERASE 16 U/L (15-37); BILIRUBIN,TOTAL 0.6 MG/DL (0.2-1.0); BLOOD UREA NITROGEN 26 mg/dL (7-18); CALCIUM 7.9 MG/DL (8.5-10.1); CARBON DIOXIDE 39 MMOL/L (21-32); CHLORIDE 102 MMOL/L (98-107); CREATININE 0.7 MG/DL (0.55-1.30); POTASSIUM 4.5 MMOL/L (3.5-5.1); SODIUM 143 MMOL/L (136-145)
--- NOTE | 2019-12-26 10:02 | NUR ---
CASE MANAGEMENT: REVIEW SI: ACUTE RESPIRATORY FAILURE . PNA T 98.0 HR 75 RR 21 BP 131/55 SAT 97% BIPAP 40 H/H 10.7/33.8 BUN 28 ABG 12/25/19 -- PH 7.443 PCO2 53.5 PO2 67.6 HCO3 35.8 IS: FUROSEMIDE GTT SOLU MEDROL IV Q6HR FENTANYL IV Q24HR OG TUBE FEEDING ICU STATUS DCP: PATIENT IS FROM [facility]
--- NOTE | 2019-12-26 10:11 | General Progress Note ---
Assessment/Plan Status: progressing, unchanged Assessment/Plan: Assessment - Resp failure - r/o COVID -- x 2 negative - COPD - HTN - Anemia - Abnormal LFT Recommendations - extubated now - Elevate HOB - abx - follow labs - f/u hepatitis serologies>>> neg -repeat labs -NGTf titrate up as tolerated to the goal rate -swallow eval when more stable Subjective ROS Limited/Unobtainable: No Allergies: Coded Allergies: LITHIUM (Verified Allergy, Unknown, 02/07/19) Objective Last 24 Hour Vital Signs Date Time Temp Pulse Resp B/P (MAP) Pulse Ox O2 Delivery O2 Flow Rate FiO2 12/26/19 07:00 65 12 118/43 (68) 93 12/26/19 06:00 73 16 127/52 (77) 100 12/26/19 05:00 74 19 122/47 (72) 98 12/26/19 04:00 40 12/26/19 04:00 82 12/26/19 04:00 Bi-pap 12/26/19 04:00 97.7 82 25 134/49 (77) 99 12/26/19 03:15 71 15 99 40 12/26/19 03:00 68 19 151/65 (93) 100 12/26/19 02:00 72 20 138/59 (85) 100 12/26/19 01:00 69 21 140/51 (80) 99 12/26/19 00:00 40 12/26/19 00:00 Bi-pap 12/26/19 00:00 98.0 75 21 131/55 (80) 98 12/26/19 00:00 75 12/25/19 23:05 72 22 96 40 12/25/19 23:00 74 20 132/56 (81) 99 12/25/19 22:00 76 22 140/52 (81) 97 12/25/19 21:00 73 23 126/50 (75) 99 12/25/19 20:53 20 126/50 Bi-pap 40 12/25/19 20:00 97.8 74 19 138/57 (84) 98 12/25/19 20:00 Bi-pap 12/25/19 20:00 40 12/25/19 19:10 78 22 97 40 12/25/19 19:08 75 12/25/19 19:00 78 21 151/55 (87) 100 12/25/19 18:00 74 20 137/60 (85) 98 12/25/19 17:06 75 23 138/56 (83) 98 12/25/19 16:00 Bi-pap 12/25/19 16:00 75 12/25/19 16:00 35 12/25/19 16:00 98.6 75 18 137/59 (85) 98 12/25/19 15:00 78 25 144/60 (88) 100 12/25/19 14:30 75 23 99 40 12/25/19 14:00 76 25 152/65 (94) 93 12/25/19 13:00 81 25 137/75 (95) 93 12/25/19 12:00 Bi-pap 12/25/19 12:00 96 12/25/19 12:00 95 19 150/53 (85) 92 12/25/19 12:00 35 12/25/19 11:24 77 19 99 35 12/25/19 11:00 85 19 141/56 (84) 99 Intake and Output 12/25/19 12/26/19 19:00 07:00 Intake Total 1035 ml 910 ml Output Total 770 ml 765 ml Balance 265 ml 145 ml Free Water 100 ml IV Total 575 ml 600 ml Tube Feeding 360 ml 160 ml Other 150 ml Output Urine Total 770 ml 765 ml Laboratory Tests 12/25/19 13:30: Arterial Blood pH 7.443, Arterial Blood Partial Pressure CO2 53.5H, Arterial Blood Partial Pressure O2 67.6L, Arterial Blood HCO3 35.8H, Arterial Blood Oxygen Saturation 91.9L, Arterial Blood Base Excess 10.2*H, Raphael Test Positive 12/25/19 23:37: POC Whole Blood Glucose 154H 12/26/19 08:50: White Blood Count 8.8, Red Blood Count 3.37L, Hemoglobin 10.7L, Hematocrit 33.8L , Mean Corpuscular Volume 100H, Mean Corpuscular Hemoglobin 31.7H, Mean Corpuscular Hemoglobin Concent 31.6L, Red Cell Distribution Width 12.6, Platelet Count 216, Mean Platelet Volume 7.6, Neutrophils (%) (Auto) 84.9H, Lymphocytes (%) (Auto) 9.5L, Monocytes (%) (Auto) 5.0, Eosinophils (%) (Auto) 0.0, Basophils (%) (Auto) 0.6, Sodium Level 143, Potassium Level 4.5, Chloride Level 102, Carbon Dioxide Level 39H, Anion Gap 2L, Blood Urea Nitrogen 26H, Creatinine 0.7, Estimat Glomerular Filtration Rate > 60, Glucose Level 159H, Calcium Level 7.9L, Total Bilirubin 0.6, Aspartate Amino Transf (AST/SGOT) 16, Alanine Aminotransferase (ALT/SGPT) 39, Alkaline Phosphatase 34L, Total Protein 6.2L, Albumin 3.1L, Globulin 3.1, Albumin/Globulin Ratio 1.0 Height (Feet): 5 Height (Inches): 7.00 Weight (Pounds): 225 General Appearance: mild distress EENT: normal ENT inspection Neck: supple Cardiovascular: tachycardia Respiratory/Chest: decreased breath sounds Abdomen: hypoactive bowel sounds Extremities: non-tender Kirk Vidal MD Dec 26, 2019 10:11
--- NOTE | 2019-12-26 10:33 | NUR ---
NURSE NOTES: Still on venturi mask with FiO2 40%. Titrate O2 to 35%. Will continue plan of care.
--- NOTE | 2019-12-26 12:20 | NUR ---
NURSE NOTES: Repositioned patient. No distress noted.
--- NOTE | 2019-12-26 14:08 | Nephrology Progress Note ---
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 Respiratory distress most likely secondary to pulmonary edema and or COPD exacerbation. Hyponatremia. Obese. Hypothyroidism. Elevated d-dimer. Elevated liver enzymes Plan December 25: Lab reviewed. TSH remains high. On nonrebreathing mask. Renal parameters stable. Synthroid dose increased. IV fluids stopped. December 24: Lab reviewed. Still on BiPAP. Renal parameters stable. December 23: Lab reviewed. Remains on BiPAP. Agitated at times. ABG ordered. Serum sodium improved. December 22: Lab reviewed. On BiPAP. Stable from renal standpoint of view. Will follow serum sodium. December 21: Labs reviewed. On nonrebreather mask. D5W 50 cc an hour started for hypernatremia. Magnesium supplement given. Continue per consultants. December 20: Patient on weaning trial. No labs done today. Discussed with RN. Continue per consultants. December 19: Patient remains intubated. Renal parameters stable. Discussed with RN. Continue per consultants. December 18: Patient self extubated yesterday however was reintubated. Remains stable from renal standpoint of view. Discussed with RN. Discussed with Dr. Myers. December 17: Remains intubated. Remains full code. Failed weaning. Stable from renal standpoint of view. Continue per consultants. Discussed with DARREL [place]. December 16: Remains intubated. Full code. Weaning in process. Stable from renal standpoint of view. December 15: Remains vented. Electrolytes improved. Continue per consultants. December 14: Patient remains in ICU intubated on ventilator. Potassium low. Phosphorus low. Supplements given. Renal parameters are stable. Continue per consultants. December 13: Patient remains in ICU intubated on ventilator. Discussed with RN. Labs reviewed. Creatinine 1.3. Potassium supplements given. Mag sulfate IV 2 g given. Continue per consultants. December 12: Patient in ICU. Intubated on ventilator. Discussed with RN. Labs reviewed. Potassium supplement given. Continue per consultants. Arterial blood gas indicative of CO2 retention. Patient on the way to ICU for intubation. Continue per pulmonary management. Pulmonary support, Check 2D echocardiogram. Previous 2D echo had a 50% ejection fraction. Keep blood sugar and blood pressure in check. Thyroid panel. Monitor electrolytes and renal parameters. Afterload reduction. Diuretics Monitor serum calcium, supplements via NG tube. Per orders. Subjective ROS Limited/Unobtainable: Yes Objective Objective Last 24 Hour Vital Signs Date Time Temp Pulse Resp B/P (MAP) Pulse Ox O2 Delivery O2 Flow Rate FiO2 12/26/19 12:00 88 12/26/19 11:00 86 20 136/53 (80) 97 12/26/19 10:00 84 18 124/52 (76) 98 12/26/19 09:00 94 23 140/60 (86) 97 12/26/19 08:00 40 12/26/19 08:00 Venturi Mask 12/26/19 08:00 87 12/26/19 08:00 97.6 87 22 153/59 (90) 96 12/26/19 07:00 65 12 118/43 (68) 93 12/26/19 06:00 73 16 127/52 (77) 100 12/26/19 05:00 74 19 122/47 (72) 98 12/26/19 04:00 40 12/26/19 04:00 82 12/26/19 04:00 Bi-pap 12/26/19 04:00 97.7 82 25 134/49 (77) 99 12/26/19 03:15 71 15 99 40 12/26/19 03:00 68 19 151/65 (93) 100 12/26/19 02:00 72 20 138/59 (85) 100 12/26/19 01:00 69 21 140/51 (80) 99 12/26/19 00:00 40 12/26/19 00:00 Bi-pap 12/26/19 00:00 98.0 75 21 131/55 (80) 98 12/26/19 00:00 75 12/25/19 23:05 72 22 96 40 12/25/19 23:00 74 20 132/56 (81) 99 12/25/19 22:00 76 22 140/52 (81) 97 12/25/19 21:00 73 23 126/50 (75) 99 12/25/19 20:53 20 126/50 Bi-pap 40 12/25/19 20:00 97.8 74 19 138/57 (84) 98 12/25/19 20:00 Bi-pap 12/25/19 20:00 40 12/25/19 19:10 78 22 97 40 12/25/19 19:08 75 12/25/19 19:00 78 21 151/55 (87) 100 12/25/19 18:00 74 20 137/60 (85) 98 12/25/19 17:06 75 23 138/56 (83) 98 12/25/19 16:00 Bi-pap 12/25/19 16:00 75 12/25/19 16:00 35 12/25/19 16:00 98.6 75 18 137/59 (85) 98 12/25/19 15:00 78 25 144/60 (88) 100 12/25/19 14:30 75 23 99 40 Intake and Output 12/25/19 12/26/19 19:00 07:00 Intake Total 1035 ml 910 ml Output Total 770 ml 765 ml Balance 265 ml 145 ml Free Water 100 ml IV Total 575 ml 600 ml Tube Feeding 360 ml 160 ml Other 150 ml Output Urine Total 770 ml 765 ml Current Medications Medications (Trade) Dose Ordered Sig/Angie Route PRN Reason Start Time Stop Time Status Last Admin Dose Admin Acetaminophen (Tylenol) 650 mg Q6H PRN ORAL Mild Pain (Pain Scale 1-3) 12/12/19 12:30 01/11/20 12:29 12/22/19 20:56 Acetaminophen (Tylenol) 1,000 mg Q6H PRN ORAL MODERATE PAIN 12/12/19 12:30 01/11/20 12:29 Amantadine HCl (Symmetrel) 100 mg TWICE A DAY ORAL 12/22/19 18:00 01/11/20 08:59 12/26/19 08:57 Aspirin (ASA) 324 mg DAILY ORAL 12/23/19 09:00 02/04/20 08:59 12/26/19 08:57 Atorvastatin Calcium (Lipitor) 10 mg BEDTIME ORAL 12/22/19 21:00 03/11/20 20:59 12/25/19 20:29 Calcium Carbonate (Os-Octavio) 500 mg THREE TIMES A DAY ORAL 12/22/19 13:00 03/20/20 17:59 12/26/19 12:13 Clonidine HCl (Catapres Tab) 0.1 mg Q6H PRN GT For high BP over 160 systolic 12/15/19 16:30 03/11/20 12:30 12/24/19 01:47 Dextrose 1,000 ml @ 50 mls/hr Q20H IV 12/22/19 09:00 01/21/20 08:59 12/26/19 12:15 Dextrose (Dextrose 50%) 25 ml Q30M PRN IV Hypoglycemia 12/13/19 07:15 03/12/20 07:14 Dextrose (Dextrose 50%) 50 ml Q30M PRN IV Hypoglycemia 12/13/19 07:15 03/12/20 07:14 Divalproex Sodium (Depakote) 250 mg EVERY 12 HOURS ORAL 12/22/19 21:00 01/12/20 20:59 12/26/19 08:57 Docusate Sodium (Colace) 100 mg TWICE A DAY ORAL 12/22/19 18:00 01/14/20 17:59 12/26/19 08:57 Fentanyl Citrate 250 ml @ 0 mls/hr Q24H IV 12/18/19 20:53 03/17/20 20:52 12/19/19 20:56 Furosemide 100 mg/ Dextrose 100 ml @ 5 mls/hr Q20H IV 12/26/19 11:00 01/25/20 10:59 12/26/19 10:52 Insulin Aspart (NovoLOG) EVERY 6 HOURS SUBQ 12/13/19 12:00 03/12/20 11:59 12/26/19 12:14 Lactulose (Cephulac) 20 gm BID ORAL 12/25/19 09:00 01/24/20 08:59 12/26/19 08:56 Levothyroxine Sodium (Synthroid) 75 mcg DAILY IV 12/13/19 09:00 01/11/20 09:29 12/26/19 09:08 Methylprednisolone Sodium Succinate (Solu-MEDROL) 20 mg EVERY 6 HOURS IVP 12/22/19 12:00 03/18/20 11:59 12/26/19 12:14 Nitroglycerin (Ntg) 0.4 mg Q5MIN X 3 DOSES PRN SL CHEST PAIN 12/12/19 12:00 01/10/20 21:44 Pantoprazole (Protonix) 40 mg EVERY 12 HOURS IVP 12/14/19 09:00 01/13/20 08:59 12/26/19 08:56 Phosphorus (Phospha 250 Neutral) 250 mg THREE TIMES A DAY ORAL 12/22/19 13:00 01/14/20 08:59 12/26/19 12:13 Polyethylene Glycol (Miralax) 17 gm BEDTIME ORAL 12/22/19 21:00 01/18/20 20:59 12/25/19 20:30 Polyethylene Glycol (Miralax) 17 gm DAILYPRN PRN ORAL Constipation 12/24/19 19:00 01/23/20 18:59 Quetiapine Fumarate (SEROqueL) 50 mg Q12HR ORAL 12/22/19 21:00 02/05/20 20:59 12/26/19 08:57 Laboratory Tests 12/25/19 23:37: POC Whole Blood Glucose 154H 12/26/19 08:50: White Blood Count 8.8, Red Blood Count 3.37L, Hemoglobin 10.7L, Hematocrit 33.8L , Mean Corpuscular Volume 100H, Mean Corpuscular Hemoglobin 31.7H, Mean Corpuscular Hemoglobin Concent 31.6L, Red Cell Distribution Width 12.6, Platelet Count 216, Mean Platelet Volume 7.6, Neutrophils (%) (Auto) 84.9H, Lymphocytes (%) (Auto) 9.5L, Monocytes (%) (Auto) 5.0, Eosinophils (%) (Auto) 0.0, Basophils (%) (Auto) 0.6, Sodium Level 143, Potassium Level 4.5, Chloride Level 102, Carbon Dioxide Level 39H, Anion Gap 2L, Blood Urea Nitrogen 26H, Creatinine 0.7, Estimat Glomerular Filtration Rate > 60, Glucose Level 159H, Calcium Level 7.9L, Total Bilirubin 0.6, Aspartate Amino Transf (AST/SGOT) 16, Alanine Aminotransferase (ALT/SGPT) 39, Alkaline Phosphatase 34L, Total Protein 6.2L, Albumin 3.1L, Globulin 3.1, Albumin/Globulin Ratio 1.0 Height (Feet): 5 Height (Inches): 7.00 Weight (Pounds): 225 General Appearance: no apparent distress, lethargic EENT: other - Now is on nonrebreathing mask Cardiovascular: tachycardia Respiratory/Chest: decreased breath sounds Abdomen: distended Bryan Ochoa MD Dec 26, 2019 14:08
--- NOTE | 2019-12-26 14:10 | NUR ---
NURSE NOTES: Seen by Dr. Davies and assessed patient.
--- NOTE | 2019-12-26 14:27 | NUR ---
ST NOTE: Ongoing monitoring of Patient's status and readiness for CALENDER OPERATOR swallow evaluation; orders per Dr. Vidal. CALENDER OPERATOR completed chart review and spoke with RN who reports Patient is on Venturi mask, recommend holding off on swallowing evaluation till tomorrow. Given this is attempt x3 to complete Bedside Swallow Evaluation, CALENDER OPERATOR plans to discontinue orders at this time. Please re-refer Patient to CALENDER OPERATOR when off of venturi mask and deemed medically ready for PO per MD. Thank you for this referral! CALENDER OPERATOR [phone]
--- NOTE | 2019-12-26 15:08 | Cardiac Electrophysiology PN ---
Assessment/Plan Assessment/Plan 1. Recurrent respiratory failure with BNP of more than 19,000. Echo showed normal ejection fraction. Off Lasix, extubated on Ventimask 2. Bradycardia requiring atropine due to respiratory failure as was on T piece at the time. No recurrence on the Vent 3. Bilateral UE edema. Venous Duplex was negative on 12/12/19. 4. History of Parkinson disease. 5. Hyperlipidemia. YOSELYN RN Subjective Subjective On Ventimask with frequent Trigeminal PVCs. Started on Lasix drip Objective Last 24 Hour Vital Signs Date Time Temp Pulse Resp B/P (MAP) Pulse Ox O2 Delivery O2 Flow Rate FiO2 12/26/19 14:00 95 22 146/43 (77) 96 12/26/19 13:00 91 23 142/65 (90) 98 12/26/19 12:00 88 12/26/19 12:00 97.6 86 21 134/53 (80) 96 12/26/19 12:00 Venturi Mask 12/26/19 12:00 40 12/26/19 11:00 86 20 136/53 (80) 97 12/26/19 10:00 84 18 124/52 (76) 98 12/26/19 09:00 94 23 140/60 (86) 97 12/26/19 08:00 40 12/26/19 08:00 Venturi Mask 12/26/19 08:00 87 12/26/19 08:00 97.6 87 22 153/59 (90) 96 12/26/19 07:00 65 12 118/43 (68) 93 12/26/19 06:00 73 16 127/52 (77) 100 12/26/19 05:00 74 19 122/47 (72) 98 12/26/19 04:00 40 12/26/19 04:00 82 12/26/19 04:00 Bi-pap 12/26/19 04:00 97.7 82 25 134/49 (77) 99 12/26/19 03:15 71 15 99 40 12/26/19 03:00 68 19 151/65 (93) 100 12/26/19 02:00 72 20 138/59 (85) 100 12/26/19 01:00 69 21 140/51 (80) 99 12/26/19 00:00 40 12/26/19 00:00 Bi-pap 12/26/19 00:00 98.0 75 21 131/55 (80) 98 12/26/19 00:00 75 12/25/19 23:05 72 22 96 40 12/25/19 23:00 74 20 132/56 (81) 99 12/25/19 22:00 76 22 140/52 (81) 97 12/25/19 21:00 73 23 126/50 (75) 99 12/25/19 20:53 20 126/50 Bi-pap 40 12/25/19 20:00 97.8 74 19 138/57 (84) 98 12/25/19 20:00 Bi-pap 12/25/19 20:00 40 12/25/19 19:10 78 22 97 40 12/25/19 19:08 75 12/25/19 19:00 78 21 151/55 (87) 100 12/25/19 18:00 74 20 137/60 (85) 98 12/25/19 17:06 75 23 138/56 (83) 98 12/25/19 16:00 Bi-pap 12/25/19 16:00 75 12/25/19 16:00 35 12/25/19 16:00 98.6 75 18 137/59 (85) 98 Intake and Output 12/25/19 12/26/19 19:00 07:00 Intake Total 1035 ml 910 ml Output Total 770 ml 765 ml Balance 265 ml 145 ml Free Water 100 ml IV Total 575 ml 600 ml Tube Feeding 360 ml 160 ml Other 150 ml Output Urine Total 770 ml 765 ml Laboratory Tests Test 12/25/19 23:37 12/26/19 08:50 POC Whole Blood Glucose 154 MG/DL (74-106) H White Blood Count 8.8 K/UL (4.8-10.8) Red Blood Count 3.37 M/UL (4.20-5.40) L Hemoglobin 10.7 G/DL (12.0-16.0) L Hematocrit 33.8 % (37.0-47.0) L Mean Corpuscular Volume 100 FL (80-99) H Mean Corpuscular Hemoglobin 31.7 PG (27.0-31.0) H Mean Corpuscular Hemoglobin Concent 31.6 G/DL (32.0-36.0) L Red Cell Distribution Width 12.6 % (11.6-14.8) Platelet Count 216 K/UL (150-450) Mean Platelet Volume 7.6 FL (6.5-10.1) Neutrophils (%) (Auto) 84.9 % (45.0-75.0) H Lymphocytes (%) (Auto) 9.5 % (20.0-45.0) L Monocytes (%) (Auto) 5.0 % (1.0-10.0) Eosinophils (%) (Auto) 0.0 % (0.0-3.0) Basophils (%) (Auto) 0.6 % (0.0-2.0) Sodium Level 143 MMOL/L (136-145) Potassium Level 4.5 MMOL/L (3.5-5.1) Chloride Level 102 MMOL/L (98-107) Carbon Dioxide Level 39 MMOL/L (21-32) H Anion Gap 2 mmol/L (5-15) L Blood Urea Nitrogen 26 mg/dL (7-18) H Creatinine 0.7 MG/DL (0.55-1.30) Estimat Glomerular Filtration Rate > 60 mL/min (>60) Glucose Level 159 MG/DL (74-106) H Calcium Level 7.9 MG/DL (8.5-10.1) L Total Bilirubin 0.6 MG/DL (0.2-1.0) Aspartate Amino Transf (AST/SGOT) 16 U/L (15-37) Alanine Aminotransferase (ALT/SGPT) 39 U/L (12-78) Alkaline Phosphatase 34 U/L (46-116) L Total Protein 6.2 G/DL (6.4-8.2) L Albumin 3.1 G/DL (3.4-5.0) L Globulin 3.1 g/dL Albumin/Globulin Ratio 1.0 (1.0-2.7) Objective HEAD AND NECK: No JVD.BIPAP is on LUNGS: Coarse rhonchi. CARDIOVASCULAR: Regular S1 and S2 and tachycardic. ABDOMEN: Soft. EXTREMITIES: Bilateral Arm edema. Cameron Davies MD Dec 26, 2019 15:08
--- NOTE | 2019-12-26 15:22 | Infectious Diseases Prog Note ---
Assessment/Plan Assessment/Plan IMPRESSION: COPD exacerbation, Pneumonia, COID19 X 2: negative Acute respiratory failure with hypercapnia Dementia, Parkinson, Mitral valve regurgitation, Hypertension, Hypothyroidism. MRSA carrier RECOMMENDATION: Observe off antibiotic Case was D/W RN Subjective ROS Limited/Unobtainable: Yes Constitutional: Denies: fever Respiratory: Reports: other - off of BIPAP Neurologic: Reports: confusion, other - on restraint Allergies: Coded Allergies: LITHIUM (Verified Allergy, Unknown, 02/07/19) Objective Last 24 Hour Vital Signs Date Time Temp Pulse Resp B/P (MAP) Pulse Ox O2 Delivery O2 Flow Rate FiO2 12/26/19 15:00 100 24 155/73 (100) 95 12/26/19 14:00 95 22 146/43 (77) 96 12/26/19 13:00 91 23 142/65 (90) 98 12/26/19 12:00 88 12/26/19 12:00 97.6 86 21 134/53 (80) 96 12/26/19 12:00 Venturi Mask 12/26/19 12:00 40 12/26/19 11:00 86 20 136/53 (80) 97 12/26/19 10:00 84 18 124/52 (76) 98 12/26/19 09:00 94 23 140/60 (86) 97 12/26/19 08:00 40 12/26/19 08:00 Venturi Mask 12/26/19 08:00 87 12/26/19 08:00 97.6 87 22 153/59 (90) 96 12/26/19 07:00 65 12 118/43 (68) 93 12/26/19 06:00 73 16 127/52 (77) 100 12/26/19 05:00 74 19 122/47 (72) 98 12/26/19 04:00 40 12/26/19 04:00 82 12/26/19 04:00 Bi-pap 12/26/19 04:00 97.7 82 25 134/49 (77) 99 12/26/19 03:15 71 15 99 40 12/26/19 03:00 68 19 151/65 (93) 100 12/26/19 02:00 72 20 138/59 (85) 100 12/26/19 01:00 69 21 140/51 (80) 99 12/26/19 00:00 40 12/26/19 00:00 Bi-pap 12/26/19 00:00 98.0 75 21 131/55 (80) 98 12/26/19 00:00 75 12/25/19 23:05 72 22 96 40 12/25/19 23:00 74 20 132/56 (81) 99 12/25/19 22:00 76 22 140/52 (81) 97 12/25/19 21:00 73 23 126/50 (75) 99 12/25/19 20:53 20 126/50 Bi-pap 40 12/25/19 20:00 97.8 74 19 138/57 (84) 98 12/25/19 20:00 Bi-pap 12/25/19 20:00 40 12/25/19 19:10 78 22 97 40 12/25/19 19:08 75 12/25/19 19:00 78 21 151/55 (87) 100 12/25/19 18:00 74 20 137/60 (85) 98 12/25/19 17:06 75 23 138/56 (83) 98 12/25/19 16:00 Bi-pap 12/25/19 16:00 75 12/25/19 16:00 35 12/25/19 16:00 98.6 75 18 137/59 (85) 98 Height (Feet): 5 Height (Inches): 7.00 Weight (Pounds): 225 HEENT: mucous membranes moist Respiratory/Chest: other - coarse sounds, on oxygen mask Cardiovascular: tachycardia Abdomen: soft, non tender Extremities: other - hands edema Neurologic/Psychiatric: alert, responsive, disoriented Laboratory Tests Test 12/25/19 23:37 12/26/19 08:50 POC Whole Blood Glucose 154 MG/DL (74-106) H White Blood Count 8.8 K/UL (4.8-10.8) Red Blood Count 3.37 M/UL (4.20-5.40) L Hemoglobin 10.7 G/DL (12.0-16.0) L Hematocrit 33.8 % (37.0-47.0) L Mean Corpuscular Volume 100 FL (80-99) H Mean Corpuscular Hemoglobin 31.7 PG (27.0-31.0) H Mean Corpuscular Hemoglobin Concent 31.6 G/DL (32.0-36.0) L Red Cell Distribution Width 12.6 % (11.6-14.8) Platelet Count 216 K/UL (150-450) Mean Platelet Volume 7.6 FL (6.5-10.1) Neutrophils (%) (Auto) 84.9 % (45.0-75.0) H Lymphocytes (%) (Auto) 9.5 % (20.0-45.0) L Monocytes (%) (Auto) 5.0 % (1.0-10.0) Eosinophils (%) (Auto) 0.0 % (0.0-3.0) Basophils (%) (Auto) 0.6 % (0.0-2.0) Sodium Level 143 MMOL/L (136-145) Potassium Level 4.5 MMOL/L (3.5-5.1) Chloride Level 102 MMOL/L (98-107) Carbon Dioxide Level 39 MMOL/L (21-32) H Anion Gap 2 mmol/L (5-15) L Blood Urea Nitrogen 26 mg/dL (7-18) H Creatinine 0.7 MG/DL (0.55-1.30) Estimat Glomerular Filtration Rate > 60 mL/min (>60) Glucose Level 159 MG/DL (74-106) H Calcium Level 7.9 MG/DL (8.5-10.1) L Total Bilirubin 0.6 MG/DL (0.2-1.0) Aspartate Amino Transf (AST/SGOT) 16 U/L (15-37) Alanine Aminotransferase (ALT/SGPT) 39 U/L (12-78) Alkaline Phosphatase 34 U/L (46-116) L Total Protein 6.2 G/DL (6.4-8.2) L Albumin 3.1 G/DL (3.4-5.0) L Globulin 3.1 g/dL Albumin/Globulin Ratio 1.0 (1.0-2.7) Current Medications Medications (Trade) Dose Ordered Sig/Angie Route PRN Reason Start Time Stop Time Status Last Admin Dose Admin Acetaminophen (Tylenol) 650 mg Q6H PRN ORAL Mild Pain (Pain Scale 1-3) 12/12/19 12:30 01/11/20 12:29 12/22/19 20:56 Acetaminophen (Tylenol) 1,000 mg Q6H PRN ORAL MODERATE PAIN 12/12/19 12:30 01/11/20 12:29 Amantadine HCl (Symmetrel) 100 mg TWICE A DAY ORAL 12/22/19 18:00 01/11/20 08:59 12/26/19 08:57 Aspirin (ASA) 324 mg DAILY ORAL 12/23/19 09:00 02/04/20 08:59 12/26/19 08:57 Atorvastatin Calcium (Lipitor) 10 mg BEDTIME ORAL 12/22/19 21:00 03/11/20 20:59 12/25/19 20:29 Calcium Carbonate (Os-Octavio) 500 mg THREE TIMES A DAY ORAL 12/22/19 13:00 03/20/20 17:59 12/26/19 12:13 Clonidine HCl (Catapres Tab) 0.1 mg Q6H PRN GT For high BP over 160 systolic 12/15/19 16:30 03/11/20 12:30 12/24/19 01:47 Dextrose (Dextrose 50%) 25 ml Q30M PRN IV Hypoglycemia 12/13/19 07:15 03/12/20 07:14 Dextrose (Dextrose 50%) 50 ml Q30M PRN IV Hypoglycemia 12/13/19 07:15 03/12/20 07:14 Divalproex Sodium (Depakote) 250 mg EVERY 12 HOURS ORAL 12/22/19 21:00 01/12/20 20:59 12/26/19 08:57 Docusate Sodium (Colace) 100 mg TWICE A DAY ORAL 12/22/19 18:00 01/14/20 17:59 12/26/19 08:57 Fentanyl Citrate 250 ml @ 0 mls/hr Q24H IV 12/18/19 20:53 03/17/20 20:52 12/19/19 20:56 Furosemide 100 mg/ Dextrose 100 ml @ 5 mls/hr Q20H IV 12/26/19 11:00 01/25/20 10:59 12/26/19 10:52 Insulin Aspart (NovoLOG) EVERY 6 HOURS SUBQ 12/13/19 12:00 03/12/20 11:59 12/26/19 12:14 Lactulose (Cephulac) 20 gm BID ORAL 12/25/19 09:00 01/24/20 08:59 12/26/19 08:56 Levothyroxine Sodium (Synthroid) 100 mcg DAILY IV 12/27/19 09:00 01/11/20 09:29 Methylprednisolone Sodium Succinate (Solu-MEDROL) 20 mg EVERY 6 HOURS IVP 12/22/19 12:00 03/18/20 11:59 12/26/19 12:14 Nitroglycerin (Ntg) 0.4 mg Q5MIN X 3 DOSES PRN SL CHEST PAIN 12/12/19 12:00 01/10/20 21:44 Pantoprazole (Protonix) 40 mg EVERY 12 HOURS IVP 12/14/19 09:00 01/13/20 08:59 12/26/19 08:56 Phosphorus (Phospha 250 Neutral) 250 mg THREE TIMES A DAY ORAL 12/22/19 13:00 01/14/20 08:59 12/26/19 12:13 Polyethylene Glycol (Miralax) 17 gm BEDTIME ORAL 12/22/19 21:00 01/18/20 20:59 12/25/19 20:30 Polyethylene Glycol (Miralax) 17 gm DAILYPRN PRN ORAL Constipation 12/24/19 19:00 01/23/20 18:59 Quetiapine Fumarate (SEROqueL) 50 mg Q12HR ORAL 12/22/19 21:00 02/05/20 20:59 12/26/19 08:57 Lei Chan MD Dec 26, 2019 15:22
--- NOTE | 2019-12-26 16:02 | NUR ---
NURSE NOTES: Repositioned patient. Still on venturi mask w/ FiO2 35%. No distress/SOB noted.
--- NOTE | 2019-12-26 17:22 | NUR ---
NURSE NOTES: Bed bath given. Patient had small brown soft BM. Kept dry, clean and comfortable. Will continue plan of care.
--- NOTE | 2019-12-26 19:05 | NUR ---
HAND-OFF: Report given to DARREL Singer. Endorsed plan of care.
--- NOTE | 2019-12-26 19:20 | NUR ---
NURSE NOTES: PATIENT REMOVED VENTURI MASK, CYANOTIC LIP COLOR AND DESATURATION 61% NOTED THAT CALLED RT, PLACED BIPAP FULL FACE MASK, I/E /, FIO2 60% AND RATE 12, WILL CONTINUE TO MONITOR.
--- NOTE | 2019-12-26 19:33 | NUR ---
NURSE NOTES: PATIENT LETHARGIC, ASLEEP STATUS, RESPIRATION REGULAR ON BIPAP I/E 18/6, FIO2 60%, RATE 12, O2 SATURATION OVER 98% NOTED, HR 90'S/MIN SR W/PVC NOTED, NGT TO LEFT NARES, INTACT AND PATENT, HELD VITAL AF 1.2 FEEDING STATUS, ABDOMEN SOFT, NON TENDER, KEPT HOB OVER 30 DEGREES AND ASPIRATION PRECAUTION, F/C INTACT AND PATENT, YELLOW URINE OUTED GRAVITY, PPL TO LEFT WRIST 22G AND RIGHT FA 20G, INTACT AND PATENT, ONGOING 5LASIX DRIP AT 5ML/HR VIAL LEFT PPL, KEPT 2 POINT SOFT RESTRAINTS, ON P200 BED, MADE LOWER BED POSITION, ON BED ALARM AND LOCKED, PROVIDED CALL LIGHT WITHIN REACH, WILL CONTINUE TO MONITOR.
--- NOTE | 2019-12-26 20:19 | NUR ---
NURSE NOTES: VSS, O2 SATURATION 975 NOTED, PATIENT CALM AND ASLEEP STATUS, WILL CONTINUE PLAN OF CARE. Addendum: 12/26/19 at 2020 by BO DEL TORO RN NURSE NOTES: VSS, O2 SATURATION 97% NOTED, PATIENT CALM AND ASLEEP STATUS, WILL CONTINUE PLAN OF CARE.
[2019-12-26] MEDS: Miralax 17gm pkt ORAL SCH (20:41)
[2019-12-26] MEDS: fentaNYL 2500mcg/NS 250ml 250 ML IV SCH (20:42)
--- NOTE | 2019-12-26 22:24 | NUR ---
NURSE NOTES: PATIENT CALM, ASLEEP STATUS, VSS, NO PAIN OR SOB NOTED AT THIS TIME.
--- NOTE | 2019-12-26 22:31 | NUR ---
NURSE NOTES: PATIENT CALM, DISCONTINUED RESTRAINTS, WILL CONTINUE TO MONITOR.
--- NOTE | 2019-12-26 23:18 | General Progress Note ---
Assessment/Plan Problem List: (1) Dyspnea ICD Codes: R06.00 - Dyspnea, unspecified SNOMED: 799241593 (2) Hypothyroidism ICD Codes: E03.9 - Hypothyroidism, unspecified SNOMED: 47425176 (3) Obese ICD Codes: E66.9 - Obesity, unspecified SNOMED: 332080570, 151917377 (4) Psychosis ICD Codes: F29 - Unspecified psychosis not due to a substance or known physiological condition SNOMED: 59877436 (5) Respiratory failure ICD Codes: J96.90 - Respiratory failure, unspecified, unspecified whether with hypoxia or hypercapnia SNOMED: 013994348 (6) Respiratory distress ICD Codes: R06.03 - Acute respiratory distress SNOMED: 312418526 (7) Dyspnea ICD Codes: R06.00 - Dyspnea, unspecified SNOMED: 754515127 (8) Pneumonia ICD Codes: J18.9 - Pneumonia, unspecified organism SNOMED: 048396813 (9) Acute and chronic respiratory failure ICD Codes: J96.20 - Acute and chronic respiratory failure, unspecified whether with hypoxia or hypercapnia SNOMED: 02989215 (10) Diabetes mellitus type 2 in nonobese ICD Codes: E11.9 - Type 2 diabetes mellitus without complications SNOMED: 561123299 (11) CHF (congestive heart failure) ICD Codes: I50.9 - Heart failure, unspecified SNOMED: 80552628 Qualifiers: Qualified Codes: I50.9 - Heart failure, unspecified (12) Hypoxia ICD Codes: R09.02 - Hypoxemia SNOMED: 649111923 (13) Elevated d-dimer ICD Codes: R79.89 - Other specified abnormal findings of blood chemistry SNOMED: 629679288 (14) Schizophrenia ICD Codes: F20.9 - Schizophrenia, unspecified SNOMED: 48829281 (15) Parkinson disease ICD Codes: G20 - Parkinson's disease SNOMED: 92997541 Status: progressing, unchanged Assessment/Plan: chf afebrile reviewed chart and labs weak malnutrition still on bipap obesity covid negative pleural effusion Subjective ROS Limited/Unobtainable: Yes Allergies: Coded Allergies: LITHIUM (Verified Allergy, Unknown, 02/07/19) Objective Last 24 Hour Vital Signs Date Time Temp Pulse Resp B/P (MAP) Pulse Ox O2 Delivery O2 Flow Rate FiO2 12/26/19 23:00 81 20 123/48 (73) 98 12/26/19 22:00 86 21 121/49 (73) 100 12/26/19 21:00 86 22 117/44 (68) 98 12/26/19 20:42 17 125/36 Bi-pap 60 12/26/19 20:00 Bi-pap 12/26/19 20:00 98.9 88 21 120/29 (59) 98 12/26/19 20:00 60 12/26/19 19:43 99 Bi-Pap 60 12/26/19 19:30 157 29 99 60 12/26/19 19:18 121 12/26/19 19:00 106 25 155/64 (94) 93 12/26/19 18:00 96 23 138/59 (85) 94 12/26/19 17:00 96 23 106/91 (96) 95 12/26/19 16:00 Venturi Mask 12/26/19 16:00 98.0 92 22 136/53 (80) 95 12/26/19 16:00 35 12/26/19 16:00 97 12/26/19 15:00 100 24 155/73 (100) 95 12/26/19 14:00 95 22 146/43 (77) 96 12/26/19 13:00 91 23 142/65 (90) 98 12/26/19 12:00 88 12/26/19 12:00 97.6 86 21 134/53 (80) 96 12/26/19 12:00 Venturi Mask 12/26/19 12:00 40 12/26/19 11:00 86 20 136/53 (80) 97 12/26/19 10:00 84 18 124/52 (76) 98 12/26/19 09:00 94 23 140/60 (86) 97 12/26/19 08:00 40 12/26/19 08:00 Venturi Mask 12/26/19 08:00 87 12/26/19 08:00 97.6 87 22 153/59 (90) 96 12/26/19 07:27 97 Cool Aerosol 6.0 35 12/26/19 07:00 65 12 118/43 (68) 93 12/26/19 06:00 73 16 127/52 (77) 100 12/26/19 05:00 74 19 122/47 (72) 98 12/26/19 04:00 40 12/26/19 04:00 82 12/26/19 04:00 Bi-pap 12/26/19 04:00 97.7 82 25 134/49 (77) 99 12/26/19 03:15 71 15 99 40 12/26/19 03:00 68 19 151/65 (93) 100 12/26/19 02:00 72 20 138/59 (85) 100 12/26/19 01:00 69 21 140/51 (80) 99 12/26/19 00:00 40 12/26/19 00:00 Bi-pap 12/26/19 00:00 98.0 75 21 131/55 (80) 98 12/26/19 00:00 75 Intake and Output 12/25/19 12/26/19 19:00 07:00 Intake Total 1035 ml 910 ml Output Total 770 ml 765 ml Balance 265 ml 145 ml Free Water 100 ml IV Total 575 ml 600 ml Tube Feeding 360 ml 160 ml Other 150 ml Output Urine Total 770 ml 765 ml Laboratory Tests 12/25/19 23:37: POC Whole Blood Glucose 154H 12/26/19 08:50: White Blood Count 8.8, Red Blood Count 3.37L, Hemoglobin 10.7L, Hematocrit 33.8L , Mean Corpuscular Volume 100H, Mean Corpuscular Hemoglobin 31.7H, Mean Corpuscular Hemoglobin Concent 31.6L, Red Cell Distribution Width 12.6, Platelet Count 216, Mean Platelet Volume 7.6, Neutrophils (%) (Auto) 84.9H, Lymphocytes (%) (Auto) 9.5L, Monocytes (%) (Auto) 5.0, Eosinophils (%) (Auto) 0.0, Basophils (%) (Auto) 0.6, Sodium Level 143, Potassium Level 4.5, Chloride Level 102, Carbon Dioxide Level 39H, Anion Gap 2L, Blood Urea Nitrogen 26H, Creatinine 0.7, Estimat Glomerular Filtration Rate > 60, Glucose Level 159H, Calcium Level 7.9L, Total Bilirubin 0.6, Aspartate Amino Transf (AST/SGOT) 16, Alanine Aminotransferase (ALT/SGPT) 39, Alkaline Phosphatase 34L, Total Protein 6.2L, Albumin 3.1L, Globulin 3.1, Albumin/Globulin Ratio 1.0 Height (Feet): 5 Height (Inches): 7.00 Weight (Pounds): 225 Respiratory/Chest: rhonchi - bilaterally Dani Perera MD Dec 26, 2019 23:18
[2019-12-27] VITALS (24 sets, daily range): BP systolic 99–130; BP diastolic 28–88
--- NOTE | 2019-12-27 00:35 | NUR ---
NURSE NOTES: PATIENT TRIED TO REMOVE BIPAP MASK WHEN AWOKE THAT APPLIED 2 POINT SOFT RESTRAINTS ORDER, WILL CONTINUE TO MONITOR.
--- NOTE | 2019-12-27 02:31 | NUR ---
NURSE NOTES: ONGOING LASIX AT 5ML/HR VIA LEFT WRIST PPL, F/C INTACT AND PATENT, OLIGURIA STATUS, WILL CONTINUE TO MONITOR.
--- NOTE | 2019-12-27 04:45 | NUR ---
NURSE NOTES: MORNING CARE WAS DONE, NO BM STATUS.
[2019-12-27] MEDS: NovoLOG Insulin Flexpen SUBQ SCH ×3 (05:32→17:10)
[2019-12-27] MEDS: Solu-MEDROL 40mg Inj IVP SCH ×3 (05:32→17:09)
--- NOTE | 2019-12-27 06:30 | NUR ---
NURSE NOTES: NO ACUTE DISTRESS NOTED AT THIS TIME.
[2019-12-27 06:33] LABS: BASOPHILS % (AUTO) 0.8 % (0.0-2.0); HEMATOCRIT 33.9 % (37.0-47.0); HEMOGLOBIN 10.8 G/DL (12.0-16.0); MEAN CORPUSCULAR VOLUME 101 FL (80-99); NEUTROPHILS % (AUTO) 83.2 % (45.0-75.0); PLATELET COUNT 183 K/UL (150-450); RED BLOOD COUNT 3.37 M/UL (4.20-5.40); RED CELL DISTRIBUTION WIDTH 12.7 % (11.6-14.8); WHITE BLOOD COUNT 11.3 K/UL (4.8-10.8)
--- NOTE | 2019-12-27 07:05 | NUR ---
HAND-OFF: Report given to DARREL LYNN.
--- NOTE | 2019-12-27 07:08 | NUR ---
NURSE NOTES: Received report from DARREL Singer. Patient is on bipap 18/6 with FiO2 50%. RT is at bedside for ABG. Left NGT intact and running with Vital AF 1.2 @ 40ml/hr. Ace intact and draining with yellow color urine. Bilateral soft wrist bands restraints on. Both hands are warm to touch. Kept dry, clean, comfortable and HOB>30. Will continue plan of care.
[2019-12-27 07:43] LABS: BLOOD UREA NITROGEN 25 mg/dL (7-18); CALCIUM 8.5 MG/DL (8.5-10.1); CHLORIDE 99 MMOL/L (98-107); CREATININE 0.8 MG/DL (0.55-1.30); SODIUM 144 MMOL/L (136-145)
[2019-12-27 08:10] LABS: CARBON DIOXIDE 43 MMOL/L (21-32)
--- NOTE | 2019-12-27 08:16 | Infectious Diseases Prog Note ---
Assessment/Plan Assessment/Plan IMPRESSION: COPD exacerbation, Pneumonia, COID19 X 2: negative Acute respiratory failure with hypercapnia Dementia, Parkinson, Mitral valve regurgitation, Hypertension, Hypothyroidism. MRSA carrier RECOMMENDATION: Observe off antibiotic Subjective ROS Limited/Unobtainable: Yes Constitutional: Denies: fever Respiratory: Reports: other - back on BIPAP Allergies: Coded Allergies: LITHIUM (Verified Allergy, Unknown, 02/07/19) Objective Last 24 Hour Vital Signs Date Time Temp Pulse Resp B/P (MAP) Pulse Ox O2 Delivery O2 Flow Rate FiO2 12/27/19 07:00 81 20 114/42 (66) 100 12/27/19 06:50 77 15 98 50 12/27/19 06:50 98 Bi-Pap 50 12/27/19 06:00 71 18 120/43 (68) 98 12/27/19 05:00 72 18 122/42 (68) 99 12/27/19 04:00 Bi-pap 12/27/19 04:00 76 12/27/19 04:00 97.5 76 20 125/47 (73) 100 12/27/19 04:00 50 12/27/19 03:28 70 18 97 50 12/27/19 03:00 76 17 113/46 (68) 98 12/27/19 02:00 77 23 116/44 (68) 99 12/27/19 01:00 77 19 118/49 (72) 98 12/27/19 00:00 80 12/27/19 00:00 60 12/27/19 00:00 98.6 80 18 117/44 (68) 98 12/27/19 00:00 Bi-pap 12/26/19 23:30 81 21 100 50 12/26/19 23:00 81 20 123/48 (73) 98 12/26/19 22:00 86 21 121/49 (73) 100 12/26/19 21:00 86 22 117/44 (68) 98 12/26/19 20:42 17 125/36 Bi-pap 60 12/26/19 20:00 Bi-pap 12/26/19 20:00 98.9 88 21 120/29 (59) 98 12/26/19 20:00 60 12/26/19 19:43 99 Bi-Pap 60 12/26/19 19:30 157 29 99 60 12/26/19 19:18 121 12/26/19 19:00 106 25 155/64 (94) 93 12/26/19 18:00 96 23 138/59 (85) 94 12/26/19 17:00 96 23 106/91 (96) 95 12/26/19 16:00 Venturi Mask 12/26/19 16:00 98.0 92 22 136/53 (80) 95 12/26/19 16:00 35 12/26/19 16:00 97 12/26/19 15:00 100 24 155/73 (100) 95 12/26/19 14:00 95 22 146/43 (77) 96 12/26/19 13:00 91 23 142/65 (90) 98 12/26/19 12:00 88 12/26/19 12:00 97.6 86 21 134/53 (80) 96 12/26/19 12:00 Venturi Mask 12/26/19 12:00 40 12/26/19 11:00 86 20 136/53 (80) 97 12/26/19 10:00 84 18 124/52 (76) 98 12/26/19 09:00 94 23 140/60 (86) 97 Height (Feet): 5 Height (Inches): 7.00 Weight (Pounds): 203 HEENT: mucous membranes moist Respiratory/Chest: decreased breath sounds, other - on BIPAP Cardiovascular: normal rate Abdomen: soft, non tender Extremities: other - hands edema Neurologic/Psychiatric: other - sleeping Laboratory Tests Test 12/26/19 08:50 12/27/19 06:05 12/27/19 07:46 White Blood Count 8.8 K/UL (4.8-10.8) 11.3 K/UL (4.8-10.8) H Red Blood Count 3.37 M/UL (4.20-5.40) L 3.37 M/UL (4.20-5.40) L Hemoglobin 10.7 G/DL (12.0-16.0) L 10.8 G/DL (12.0-16.0) L Hematocrit 33.8 % (37.0-47.0) L 33.9 % (37.0-47.0) L Mean Corpuscular Volume 100 FL (80-99) H 101 FL (80-99) H Mean Corpuscular Hemoglobin 31.7 PG (27.0-31.0) H 32.0 PG (27.0-31.0) H Mean Corpuscular Hemoglobin Concent 31.6 G/DL (32.0-36.0) L 31.7 G/DL (32.0-36.0) L Red Cell Distribution Width 12.6 % (11.6-14.8) 12.7 % (11.6-14.8) Platelet Count 216 K/UL (150-450) 183 K/UL (150-450) Mean Platelet Volume 7.6 FL (6.5-10.1) 7.4 FL (6.5-10.1) Neutrophils (%) (Auto) 84.9 % (45.0-75.0) H 83.2 % (45.0-75.0) H Lymphocytes (%) (Auto) 9.5 % (20.0-45.0) L 11.0 % (20.0-45.0) L Monocytes (%) (Auto) 5.0 % (1.0-10.0) 5.0 % (1.0-10.0) Eosinophils (%) (Auto) 0.0 % (0.0-3.0) 0.0 % (0.0-3.0) Basophils (%) (Auto) 0.6 % (0.0-2.0) 0.8 % (0.0-2.0) Sodium Level 143 MMOL/L (136-145) 144 MMOL/L (136-145) Potassium Level 4.5 MMOL/L (3.5-5.1) 4.0 MMOL/L (3.5-5.1) Chloride Level 102 MMOL/L (98-107) 99 MMOL/L (98-107) Carbon Dioxide Level 39 MMOL/L (21-32) H 43 MMOL/L (21-32) *H Anion Gap 2 mmol/L (5-15) L Blood Urea Nitrogen 26 mg/dL (7-18) H 25 mg/dL (7-18) H Creatinine 0.7 MG/DL (0.55-1.30) 0.8 MG/DL (0.55-1.30) Estimat Glomerular Filtration Rate > 60 mL/min (>60) > 60 mL/min (>60) Glucose Level 159 MG/DL (74-106) H 134 MG/DL (74-106) H Calcium Level 7.9 MG/DL (8.5-10.1) L 8.5 MG/DL (8.5-10.1) Total Bilirubin 0.6 MG/DL (0.2-1.0) Pending Aspartate Amino Transf (AST/SGOT) 16 U/L (15-37) Pending Alanine Aminotransferase (ALT/SGPT) 39 U/L (12-78) Pending Alkaline Phosphatase 34 U/L (46-116) L Pending Total Protein 6.2 G/DL (6.4-8.2) L Pending Albumin 3.1 G/DL (3.4-5.0) L Pending Globulin 3.1 g/dL Albumin/Globulin Ratio 1.0 (1.0-2.7) Phosphorus Level Pending Magnesium Level Pending Direct Bilirubin Pending Arterial Blood pH 7.445 (7.350-7.450) Arterial Blood Partial Pressure CO2 66.7 mmHg (35.0-45.0) *H Arterial Blood Partial Pressure O2 104.4 mmHg (75.0-100.0) H Arterial Blood HCO3 44.8 mmol/L (22.0-26.0) *H Arterial Blood Oxygen Saturation 97.3 % (95-100) Arterial Blood Base Excess 17.8 (-2-2) *H Raphael Test Positive Current Medications Medications (Trade) Dose Ordered Sig/Angie Route PRN Reason Start Time Stop Time Status Last Admin Dose Admin Acetaminophen (Tylenol) 650 mg Q6H PRN ORAL Mild Pain (Pain Scale 1-3) 12/12/19 12:30 01/11/20 12:29 12/22/19 20:56 Acetaminophen (Tylenol) 1,000 mg Q6H PRN ORAL MODERATE PAIN 12/12/19 12:30 01/11/20 12:29 Amantadine HCl (Symmetrel) 100 mg TWICE A DAY ORAL 12/22/19 18:00 01/11/20 08:59 12/26/19 17:40 Aspirin (ASA) 324 mg DAILY ORAL 12/23/19 09:00 02/04/20 08:59 12/26/19 08:57 Atorvastatin Calcium (Lipitor) 10 mg BEDTIME ORAL 12/22/19 21:00 03/11/20 20:59 12/26/19 20:42 Calcium Carbonate (Os-Octavio) 500 mg THREE TIMES A DAY ORAL 12/22/19 13:00 03/20/20 17:59 12/26/19 17:40 Clonidine HCl (Catapres Tab) 0.1 mg Q6H PRN GT For high BP over 160 systolic 12/15/19 16:30 03/11/20 12:30 12/24/19 01:47 Dextrose (Dextrose 50%) 25 ml Q30M PRN IV Hypoglycemia 12/13/19 07:15 03/12/20 07:14 Dextrose (Dextrose 50%) 50 ml Q30M PRN IV Hypoglycemia 12/13/19 07:15 03/12/20 07:14 Divalproex Sodium (Depakote) 250 mg EVERY 12 HOURS ORAL 12/22/19 21:00 01/12/20 20:59 12/26/19 20:42 Docusate Sodium (Colace) 100 mg TWICE A DAY ORAL 12/22/19 18:00 01/14/20 17:59 12/26/19 17:41 Fentanyl Citrate 250 ml @ 0 mls/hr Q24H IV 12/18/19 20:53 03/17/20 20:52 12/19/19 20:56 Furosemide 100 mg/ Dextrose 100 ml @ 5 mls/hr Q20H IV 12/26/19 11:00 01/25/20 10:59 12/27/19 06:33 Insulin Aspart (NovoLOG) EVERY 6 HOURS SUBQ 12/13/19 12:00 03/12/20 11:59 12/26/19 23:31 Lactulose (Cephulac) 20 gm BID ORAL 12/25/19 09:00 01/24/20 08:59 12/26/19 17:40 Levothyroxine Sodium (Synthroid) 100 mcg DAILY IV 12/27/19 09:00 01/11/20 09:29 Methylprednisolone Sodium Succinate (Solu-MEDROL) 20 mg EVERY 6 HOURS IVP 12/22/19 12:00 03/18/20 11:59 12/27/19 05:32 Nitroglycerin (Ntg) 0.4 mg Q5MIN X 3 DOSES PRN SL CHEST PAIN 12/12/19 12:00 01/10/20 21:44 Pantoprazole (Protonix) 40 mg EVERY 12 HOURS IVP 12/14/19 09:00 01/13/20 08:59 12/26/19 20:41 Phosphorus (Phospha 250 Neutral) 250 mg THREE TIMES A DAY ORAL 12/22/19 13:00 01/14/20 08:59 12/26/19 17:41 Polyethylene Glycol (Miralax) 17 gm BEDTIME ORAL 12/22/19 21:00 01/18/20 20:59 12/26/19 20:41 Polyethylene Glycol (Miralax) 17 gm DAILYPRN PRN ORAL Constipation 12/24/19 19:00 01/23/20 18:59 Quetiapine Fumarate (SEROqueL) 50 mg Q12HR ORAL 12/22/19 21:00 02/05/20 20:59 12/26/19 20:42 Lei Chan MD Dec 27, 2019 08:16
[2019-12-27 08:42] LABS: ALANINE AMINOTRANSFERASE 38 U/L (12-78); ALKALINE PHOSPHATASE 35 U/L (46-116); ASPARTATE AMINO TRANSFERASE 15 U/L (15-37); BILIRUBIN,DIRECT 0.2 MG/DL (0.0-0.3); BILIRUBIN,TOTAL 0.7 MG/DL (0.2-1.0); PHOSPHORUS 3.8 MG/DL (2.5-4.9)
[2019-12-27] MEDS: Lactulose 20gm/30ml UDC ORAL SCH ×2 (08:42→17:09)
[2019-12-27] MEDS: Pantoprazole Inj IVP SCH ×2 (08:42→20:47)
[2019-12-27] MEDS: Os-Cal (Oyster Shell) 500mg tab ORAL SCH ×3 (08:42→17:09)
[2019-12-27] MEDS: Phospha 250 Neutral tab ORAL SCH ×3 (08:42→17:10)
[2019-12-27] MEDS: Amantadine 100mg cap ORAL SCH ×2 (08:43→17:10)
[2019-12-27] MEDS: Docusate 100mg cap ORAL SCH ×2 (08:43→17:09)
[2019-12-27] MEDS: Aspirin Baby 81mg ORAL SCH (08:43)
--- NOTE | 2019-12-27 09:00 | NUR ---
NURSE NOTES: Repositioned patient and all due medications given as ordered.
--- NOTE | 2019-12-27 10:20 | NUR ---
RADIOLOGY DEPT., CHEST X-RAY DONE.-P.DYE
--- NOTE | 2019-12-27 10:20 | NUR ---
RESPIRATORY NOTES PT taken off bipap and placed on venturi mask - 8L, 40%. PT SaO2 - 97%. RN Deejay aware. Will continue to monitor.
--- NOTE | 2019-12-27 10:22 | NUR ---
NURSE NOTES: Put her on venturi mask with FiO2 40%. O2 sat 95% on the monitor. Patient awake and calm. Will continue to monitor closely.
--- NOTE | 2019-12-27 11:00 | Diagnostic Imaging Report ---
Indication: Dyspnea Technique: One view of the chest Comparison: 12/20/2019 Findings: Patient is rotated to the right. Previously demonstrated endotracheal tube has been removed. There is increased left pleural fluid but decreased right pleural fluid. Nasogastric tube projects beyond the edge of the image. Impression: Decreased right and increased left pleural fluid, since prior exam of 7 days earlier Interval extubation Other findings as noted
--- NOTE | 2019-12-27 11:32 | Nephrology Progress Note ---
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 Respiratory distress most likely secondary to pulmonary edema and or COPD exacerbation. Hyponatremia. Obese. Hypothyroidism. Elevated d-dimer. Elevated liver enzymes Plan December 26: Lab reviewed. ABG reviewed. Patient retaining CO2. Remains on BiPAP. Continue per pulmonary. Stable from renal standpoint of view. December 25: Lab reviewed. TSH remains high. On nonrebreathing mask. Renal parameters stable. Synthroid dose increased. IV fluids stopped. December 24: Lab reviewed. Still on BiPAP. Renal parameters stable. December 23: Lab reviewed. Remains on BiPAP. Agitated at times. ABG ordered. Serum sodium improved. December 22: Lab reviewed. On BiPAP. Stable from renal standpoint of view. Will follow serum sodium. December 21: Labs reviewed. On nonrebreather mask. D5W 50 cc an hour started for hypernatremia. Magnesium supplement given. Continue per consultants. December 20: Patient on weaning trial. No labs done today. Discussed with RN. Continue per consultants. December 19: Patient remains intubated. Renal parameters stable. Discussed with RN. Continue per consultants. December 18: Patient self extubated yesterday however was reintubated. Remains stable from renal standpoint of view. Discussed with RN. Discussed with Dr. Myers. December 17: Remains intubated. Remains full code. Failed weaning. Stable from renal standpoint of view. Continue per consultants. Discussed with DARREL [place]. December 16: Remains intubated. Full code. Weaning in process. Stable from renal standpoint of view. December 15: Remains vented. Electrolytes improved. Continue per consultants. December 14: Patient remains in ICU intubated on ventilator. Potassium low. Phosphorus low. Supplements given. Renal parameters are stable. Continue per consultants. December 13: Patient remains in ICU intubated on ventilator. Discussed with RN. Labs reviewed. Creatinine 1.3. Potassium supplements given. Mag sulfate IV 2 g given. Continue per consultants. December 12: Patient in ICU. Intubated on ventilator. Discussed with RN. Labs reviewed. Potassium supplement given. Continue per consultants. Arterial blood gas indicative of CO2 retention. Patient on the way to ICU for intubation. Continue per pulmonary management. Pulmonary support, Check 2D echocardiogram. Previous 2D echo had a 50% ejection fraction. Keep blood sugar and blood pressure in check. Thyroid panel. Monitor electrolytes and renal parameters. Afterload reduction. Diuretics Monitor serum calcium, supplements via NG tube. Per orders. Subjective ROS Limited/Unobtainable: Yes Objective Objective Last 24 Hour Vital Signs Date Time Temp Pulse Resp B/P (MAP) Pulse Ox O2 Delivery O2 Flow Rate FiO2 12/27/19 10:00 77 20 99/39 (59) 95 12/27/19 09:00 40 12/27/19 09:00 75 18 106/41 (62) 98 12/27/19 08:00 Bi-pap 12/27/19 08:00 97.2 80 21 130/47 (74) 98 12/27/19 08:00 79 12/27/19 08:00 50 12/27/19 07:00 81 20 114/42 (66) 100 12/27/19 06:50 77 15 98 50 12/27/19 06:50 98 Bi-Pap 50 12/27/19 06:00 71 18 120/43 (68) 98 12/27/19 05:00 72 18 122/42 (68) 99 12/27/19 04:00 Bi-pap 12/27/19 04:00 76 12/27/19 04:00 97.5 76 20 125/47 (73) 100 12/27/19 04:00 50 12/27/19 03:28 70 18 97 50 12/27/19 03:00 76 17 113/46 (68) 98 12/27/19 02:00 77 23 116/44 (68) 99 12/27/19 01:00 77 19 118/49 (72) 98 12/27/19 00:00 80 12/27/19 00:00 60 12/27/19 00:00 98.6 80 18 117/44 (68) 98 12/27/19 00:00 Bi-pap 12/26/19 23:30 81 21 100 50 12/26/19 23:00 81 20 123/48 (73) 98 12/26/19 22:00 86 21 121/49 (73) 100 12/26/19 21:00 86 22 117/44 (68) 98 12/26/19 20:42 17 125/36 Bi-pap 60 12/26/19 20:00 Bi-pap 12/26/19 20:00 98.9 88 21 120/29 (59) 98 12/26/19 20:00 60 12/26/19 19:43 99 Bi-Pap 60 12/26/19 19:30 157 29 99 60 12/26/19 19:18 121 12/26/19 19:00 106 25 155/64 (94) 93 12/26/19 18:00 96 23 138/59 (85) 94 12/26/19 17:00 96 23 106/91 (96) 95 12/26/19 16:00 Venturi Mask 12/26/19 16:00 98.0 92 22 136/53 (80) 95 12/26/19 16:00 35 12/26/19 16:00 97 12/26/19 15:00 100 24 155/73 (100) 95 12/26/19 14:00 95 22 146/43 (77) 96 12/26/19 13:00 91 23 142/65 (90) 98 12/26/19 12:00 88 12/26/19 12:00 97.6 86 21 134/53 (80) 96 12/26/19 12:00 Venturi Mask 12/26/19 12:00 40 Intake and Output 12/26/19 12/27/19 19:00 07:00 Intake Total 860.7 ml 280 ml Output Total 2670 ml 2900 ml Balance -1809.3 ml -2620 ml Free Water 200 ml IV Total 280.7 ml 60 ml Tube Feeding 380 ml 120 ml Other 100 ml Output Urine Total 2670 ml 2900 ml # Bowel Movements 1 Laboratory Tests 12/27/19 06:05: White Blood Count 11.3H, Red Blood Count 3.37L, Hemoglobin 10.8L, Hematocrit 33.9L, Mean Corpuscular Volume 101H, Mean Corpuscular Hemoglobin 32.0H, Mean Corpuscular Hemoglobin Concent 31.7L, Red Cell Distribution Width 12.7, Platelet Count 183, Mean Platelet Volume 7.4, Neutrophils (%) (Auto) 83.2H, Lymphocytes (%) (Auto) 11.0L, Monocytes (%) (Auto) 5.0, Eosinophils (%) (Auto) 0.0, Basophils (%) (Auto) 0.8, Sodium Level 144, Potassium Level 4.0, Chloride Level 99, Carbon Dioxide Level 43*H, Blood Urea Nitrogen 25H, Creatinine 0.8, Estimat Glomerular Filtration Rate > 60, Glucose Level 134H, Calcium Level 8.5, Phosphorus Level 3.8, Magnesium Level 1.8, Total Bilirubin 0.7, Direct Bilirubin 0.2, Aspartate Amino Transf (AST/SGOT) 15, Alanine Aminotransferase ( ALT/SGPT) 38, Alkaline Phosphatase 35L, Total Protein 6.0L, Albumin 3.0L 12/27/19 07:46: Arterial Blood pH 7.445, Arterial Blood Partial Pressure CO2 66.7*H, Arterial Blood Partial Pressure O2 104.4H, Arterial Blood HCO3 44.8*H, Arterial Blood Oxygen Saturation 97.3, Arterial Blood Base Excess 17.8*H, Raphael Test Positive Height (Feet): 5 Height (Inches): 7.00 Weight (Pounds): 203 General Appearance: mild distress EENT: other - On BiPAP Cardiovascular: normal rate Respiratory/Chest: decreased breath sounds Abdomen: distended Bryan Ochoa MD Dec 27, 2019 11:32
--- NOTE | 2019-12-27 12:10 | NUR ---
NURSE NOTES: Seen by Dr. Myers and assessed patient. Repositioned patient.
--- NOTE | 2019-12-27 12:37 | General Progress Note ---
Assessment/Plan Status: progressing, unchanged Assessment/Plan: Assessment - Resp failure - r/o COVID -- x 2 negative - COPD - HTN - Anemia - Abnormal LFT Recommendations - extubated now - Elevate HOB - abx - follow labs - f/u hepatitis serologies>>> neg -repeat labs -NGTf titrate up as tolerated to the goal rate -swallow eval when more stable Subjective ROS Limited/Unobtainable: No Allergies: Coded Allergies: LITHIUM (Verified Allergy, Unknown, 02/07/19) Objective Last 24 Hour Vital Signs Date Time Temp Pulse Resp B/P (MAP) Pulse Ox O2 Delivery O2 Flow Rate FiO2 12/27/19 12:00 Venturi Mask 12/27/19 12:00 97.3 88 27 123/53 (76) 97 12/27/19 11:00 84 20 101/48 (65) 93 12/27/19 10:00 77 20 99/39 (59) 95 12/27/19 09:00 40 12/27/19 09:00 75 18 106/41 (62) 98 12/27/19 08:00 Bi-pap 12/27/19 08:00 97.2 80 21 130/47 (74) 98 12/27/19 08:00 79 12/27/19 08:00 50 12/27/19 07:00 81 20 114/42 (66) 100 12/27/19 06:50 77 15 98 50 12/27/19 06:50 98 Bi-Pap 50 12/27/19 06:00 71 18 120/43 (68) 98 12/27/19 05:00 72 18 122/42 (68) 99 12/27/19 04:00 Bi-pap 12/27/19 04:00 76 12/27/19 04:00 97.5 76 20 125/47 (73) 100 12/27/19 04:00 50 12/27/19 03:28 70 18 97 50 12/27/19 03:00 76 17 113/46 (68) 98 12/27/19 02:00 77 23 116/44 (68) 99 12/27/19 01:00 77 19 118/49 (72) 98 12/27/19 00:00 80 12/27/19 00:00 60 12/27/19 00:00 98.6 80 18 117/44 (68) 98 12/27/19 00:00 Bi-pap 12/26/19 23:30 81 21 100 50 12/26/19 23:00 81 20 123/48 (73) 98 12/26/19 22:00 86 21 121/49 (73) 100 12/26/19 21:00 86 22 117/44 (68) 98 12/26/19 20:42 17 125/36 Bi-pap 60 12/26/19 20:00 Bi-pap 12/26/19 20:00 98.9 88 21 120/29 (59) 98 12/26/19 20:00 60 12/26/19 19:43 99 Bi-Pap 60 12/26/19 19:30 157 29 99 60 12/26/19 19:18 121 12/26/19 19:00 106 25 155/64 (94) 93 12/26/19 18:00 96 23 138/59 (85) 94 12/26/19 17:00 96 23 106/91 (96) 95 12/26/19 16:00 Venturi Mask 12/26/19 16:00 98.0 92 22 136/53 (80) 95 12/26/19 16:00 35 12/26/19 16:00 97 12/26/19 15:00 100 24 155/73 (100) 95 12/26/19 14:00 95 22 146/43 (77) 96 12/26/19 13:00 91 23 142/65 (90) 98 Intake and Output 12/26/19 12/27/19 19:00 07:00 Intake Total 860.7 ml 280 ml Output Total 2670 ml 2900 ml Balance -1809.3 ml -2620 ml Free Water 200 ml IV Total 280.7 ml 60 ml Tube Feeding 380 ml 120 ml Other 100 ml Output Urine Total 2670 ml 2900 ml # Bowel Movements 1 Laboratory Tests 12/27/19 06:05: White Blood Count 11.3H, Red Blood Count 3.37L, Hemoglobin 10.8L, Hematocrit 33.9L, Mean Corpuscular Volume 101H, Mean Corpuscular Hemoglobin 32.0H, Mean Corpuscular Hemoglobin Concent 31.7L, Red Cell Distribution Width 12.7, Platelet Count 183, Mean Platelet Volume 7.4, Neutrophils (%) (Auto) 83.2H, Lymphocytes (%) (Auto) 11.0L, Monocytes (%) (Auto) 5.0, Eosinophils (%) (Auto) 0.0, Basophils (%) (Auto) 0.8, Sodium Level 144, Potassium Level 4.0, Chloride Level 99, Carbon Dioxide Level 43*H, Blood Urea Nitrogen 25H, Creatinine 0.8, Estimat Glomerular Filtration Rate > 60, Glucose Level 134H, Calcium Level 8.5, Phosphorus Level 3.8, Magnesium Level 1.8, Total Bilirubin 0.7, Direct Bilirubin 0.2, Aspartate Amino Transf (AST/SGOT) 15, Alanine Aminotransferase ( ALT/SGPT) 38, Alkaline Phosphatase 35L, Total Protein 6.0L, Albumin 3.0L 12/27/19 07:46: Arterial Blood pH 7.445, Arterial Blood Partial Pressure CO2 66.7*H, Arterial Blood Partial Pressure O2 104.4H, Arterial Blood HCO3 44.8*H, Arterial Blood Oxygen Saturation 97.3, Arterial Blood Base Excess 17.8*H, Raphael Test Positive Height (Feet): 5 Height (Inches): 7.00 Weight (Pounds): 203 General Appearance: no apparent distress EENT: normal ENT inspection Neck: supple Cardiovascular: normal rate Respiratory/Chest: decreased breath sounds Abdomen: normal bowel sounds, non tender, soft Extremities: non-tender Kirk Vidal MD Dec 27, 2019 12:37
--- NOTE | 2019-12-27 12:43 | NUR ---
RD ASSESSMENT & RECOMMENDATIONS SEE CARE ACTIVITY FOR COMPLETE ASSESSMENT DAILY ESTIMATED NEEDS: Needs based on Pulmonary, obesity/ 72kg abw 20-25 kcals/kg 9835-2558 total kcals 1.25-1.5 g protein/kg 90-108 g total protein 20-25 mL/kg 4199-4788 total fluid mLs NUTRITION DIAGNOSIS: Swallowing difficulty R/T dysphagia, h/o Parkinson's, respiratory failure as evidenced by pt on soft bite size diet [employer] CL[employer], s/p oral intubation, on OGT feeds, now s/p extubation, on bipap + NGT feeds, pending RN RESOURCE NURSE re-eval. CURRENT TF:Vital 1.2 @55 ENTERAL NUTRITION RECOMMENDATIONS: Vital 1.2 @50ml/hr x24 hrs to provide 1200ml, 1440 kcal, 90g pro, 973ml free H2O - Maintain TF as tolerated if pt is unable to transition to oral diet at this time d/t resp status (on bipap) - Flush per MD, HOB over 30 degrees ADDITIONAL RECOMMENDATIONS: * Per SNF: HT=68" [id number] (12/04/19) * Monitor lytes, replete as needed * Rec added D5 IVF while pt is NPO to prevent hypoglycemia * Monitor Na -> trending up, now wnl * Monitor BMs in EMR: no recent record of BM- on lactulose bm 12/25
--- NOTE | 2019-12-27 13:13 | Pulmonology Progress Note ---
Subjective ROS Limited/Unobtainable: No Interval Events: Extubated 12/21/19; now on BiPAP; did well on VENTIMASK Constitutional: Denies: fever HEENT: Repors: no symptoms Respiratory: Reports: no symptoms Cardiovascular: Reports: no symptoms Gastrointestinal/Abdominal: Reports: no symptoms Genitourinary: Reports: no symptoms Allergies: Coded Allergies: LITHIUM (Verified Allergy, Unknown, 02/07/19) All Systems: reviewed and negative except above Objective Last 24 Hour Vital Signs Date Time Temp Pulse Resp B/P (MAP) Pulse Ox O2 Delivery O2 Flow Rate FiO2 12/27/19 12:00 Venturi Mask 12/27/19 12:00 97.3 88 27 123/53 (76) 97 12/27/19 11:00 84 20 101/48 (65) 93 12/27/19 10:00 77 20 99/39 (59) 95 12/27/19 09:00 40 12/27/19 09:00 75 18 106/41 (62) 98 12/27/19 08:00 Bi-pap 12/27/19 08:00 97.2 80 21 130/47 (74) 98 12/27/19 08:00 79 12/27/19 08:00 50 12/27/19 07:00 81 20 114/42 (66) 100 12/27/19 06:50 77 15 98 50 12/27/19 06:50 98 Bi-Pap 50 12/27/19 06:00 71 18 120/43 (68) 98 12/27/19 05:00 72 18 122/42 (68) 99 12/27/19 04:00 Bi-pap 12/27/19 04:00 76 12/27/19 04:00 97.5 76 20 125/47 (73) 100 12/27/19 04:00 50 12/27/19 03:28 70 18 97 50 12/27/19 03:00 76 17 113/46 (68) 98 12/27/19 02:00 77 23 116/44 (68) 99 12/27/19 01:00 77 19 118/49 (72) 98 12/27/19 00:00 80 12/27/19 00:00 60 12/27/19 00:00 98.6 80 18 117/44 (68) 98 12/27/19 00:00 Bi-pap 12/26/19 23:30 81 21 100 50 12/26/19 23:00 81 20 123/48 (73) 98 12/26/19 22:00 86 21 121/49 (73) 100 12/26/19 21:00 86 22 117/44 (68) 98 12/26/19 20:42 17 125/36 Bi-pap 60 12/26/19 20:00 Bi-pap 12/26/19 20:00 98.9 88 21 120/29 (59) 98 12/26/19 20:00 60 12/26/19 19:43 99 Bi-Pap 60 12/26/19 19:30 157 29 99 60 12/26/19 19:18 121 12/26/19 19:00 106 25 155/64 (94) 93 12/26/19 18:00 96 23 138/59 (85) 94 12/26/19 17:00 96 23 106/91 (96) 95 12/26/19 16:00 Venturi Mask 12/26/19 16:00 98.0 92 22 136/53 (80) 95 12/26/19 16:00 35 12/26/19 16:00 97 12/26/19 15:00 100 24 155/73 (100) 95 12/26/19 14:00 95 22 146/43 (77) 96 Intake and Output 12/26/19 12/27/19 19:00 07:00 Intake Total 860.7 ml 280 ml Output Total 2670 ml 2900 ml Balance -1809.3 ml -2620 ml Free Water 200 ml IV Total 280.7 ml 60 ml Tube Feeding 380 ml 120 ml Other 100 ml Output Urine Total 2670 ml 2900 ml # Bowel Movements 1 General Appearance: no acute distress Respiratory: chest wall non-tender, lungs clear Cardiovascular: normal peripheral pulses, normal rate Abdomen: normal bowel sounds Laboratory Tests 12/27/19 06:05: White Blood Count 11.3H, Red Blood Count 3.37L, Hemoglobin 10.8L, Hematocrit 33.9L, Mean Corpuscular Volume 101H, Mean Corpuscular Hemoglobin 32.0H, Mean Corpuscular Hemoglobin Concent 31.7L, Red Cell Distribution Width 12.7, Platelet Count 183, Mean Platelet Volume 7.4, Neutrophils (%) (Auto) 83.2H, Lymphocytes (%) (Auto) 11.0L, Monocytes (%) (Auto) 5.0, Eosinophils (%) (Auto) 0.0, Basophils (%) (Auto) 0.8, Sodium Level 144, Potassium Level 4.0, Chloride Level 99, Carbon Dioxide Level 43*H, Blood Urea Nitrogen 25H, Creatinine 0.8, Estimat Glomerular Filtration Rate > 60, Glucose Level 134H, Calcium Level 8.5, Phosphorus Level 3.8, Magnesium Level 1.8, Total Bilirubin 0.7, Direct Bilirubin 0.2, Aspartate Amino Transf (AST/SGOT) 15, Alanine Aminotransferase ( ALT/SGPT) 38, Alkaline Phosphatase 35L, Total Protein 6.0L, Albumin 3.0L 12/27/19 07:46: Arterial Blood pH 7.445, Arterial Blood Partial Pressure CO2 66.7*H, Arterial Blood Partial Pressure O2 104.4H, Arterial Blood HCO3 44.8*H, Arterial Blood Oxygen Saturation 97.3, Arterial Blood Base Excess 17.8*H, Raphael Test Positive Current Medications Medications (Trade) Dose Ordered Sig/Angie Route PRN Reason Start Time Stop Time Status Last Admin Dose Admin Acetaminophen (Tylenol) 650 mg Q6H PRN ORAL Mild Pain (Pain Scale 1-3) 12/12/19 12:30 01/11/20 12:29 12/22/19 20:56 Acetaminophen (Tylenol) 1,000 mg Q6H PRN ORAL MODERATE PAIN 12/12/19 12:30 01/11/20 12:29 Amantadine HCl (Symmetrel) 100 mg TWICE A DAY ORAL 12/22/19 18:00 01/11/20 08:59 12/27/19 08:43 Aspirin (ASA) 324 mg DAILY ORAL 12/23/19 09:00 02/04/20 08:59 12/27/19 08:43 Atorvastatin Calcium (Lipitor) 10 mg BEDTIME ORAL 12/22/19 21:00 03/11/20 20:59 12/26/19 20:42 Calcium Carbonate (Os-Octavio) 500 mg THREE TIMES A DAY ORAL 12/22/19 13:00 03/20/20 17:59 12/27/19 12:18 Clonidine HCl (Catapres Tab) 0.1 mg Q6H PRN GT For high BP over 160 systolic 12/15/19 16:30 03/11/20 12:30 12/24/19 01:47 Dextrose (Dextrose 50%) 25 ml Q30M PRN IV Hypoglycemia 12/13/19 07:15 03/12/20 07:14 Dextrose (Dextrose 50%) 50 ml Q30M PRN IV Hypoglycemia 12/13/19 07:15 03/12/20 07:14 Divalproex Sodium (Depakote) 250 mg EVERY 12 HOURS ORAL 12/22/19 21:00 01/12/20 20:59 12/27/19 08:42 Docusate Sodium (Colace) 100 mg TWICE A DAY ORAL 12/22/19 18:00 01/14/20 17:59 12/27/19 08:43 Fentanyl Citrate 250 ml @ 0 mls/hr Q24H IV 12/18/19 20:53 03/17/20 20:52 12/19/19 20:56 Furosemide 100 mg/ Dextrose 100 ml @ 5 mls/hr Q20H IV 12/26/19 11:00 01/25/20 10:59 12/27/19 06:33 Insulin Aspart (NovoLOG) EVERY 6 HOURS SUBQ 12/13/19 12:00 03/12/20 11:59 12/27/19 12:18 Lactulose (Cephulac) 20 gm BID ORAL 12/25/19 09:00 01/24/20 08:59 12/27/19 08:42 Levothyroxine Sodium (Synthroid) 100 mcg DAILY IV 12/27/19 09:00 01/11/20 09:29 12/27/19 09:12 Methylprednisolone Sodium Succinate (Solu-MEDROL) 20 mg EVERY 6 HOURS IVP 12/22/19 12:00 03/18/20 11:59 12/27/19 12:18 Nitroglycerin (Ntg) 0.4 mg Q5MIN X 3 DOSES PRN SL CHEST PAIN 12/12/19 12:00 01/10/20 21:44 Pantoprazole (Protonix) 40 mg EVERY 12 HOURS IVP 12/14/19 09:00 01/13/20 08:59 12/27/19 08:42 Phosphorus (Phospha 250 Neutral) 250 mg THREE TIMES A DAY ORAL 12/22/19 13:00 01/14/20 08:59 12/27/19 12:18 Polyethylene Glycol (Miralax) 17 gm BEDTIME ORAL 12/22/19 21:00 01/18/20 20:59 12/26/19 20:41 Polyethylene Glycol (Miralax) 17 gm DAILYPRN PRN ORAL Constipation 12/24/19 19:00 01/23/20 18:59 Quetiapine Fumarate (SEROqueL) 50 mg Q12HR ORAL 12/22/19 21:00 02/05/20 20:59 12/27/19 08:43 Assessment/Plan Assessment/Plan IMPRESSION: 1. Respiratory failure. Now on BiPAP 2. Has healthcare-associated pneumonia; is negative for COVID-19. 3. Psych disorder. 4. Obesity. 5. Hypertension. 6. Hypernatremia DISCUSSION: Continue broad spectrum antibiotics. Off olanzepine Has negative COVID-19 swab. Switched to Seroquel Will continue ventimask and use BiPAp as backup On Lasix gtt; ABG adequate Emerita Fan Omar Syed MD Dec 27, 2019 13:12
--- NOTE | 2019-12-27 14:00 | NUR ---
NURSE NOTES: Patient is desating 50s and found that venturi mask was off. NG tube was on the floor. Still on bilateral soft wrist bands restraints. Put the venturi mask back on. O2 sat 92% on the monitor with FiO2 40%. Turned off feeding pump. Repositioned patient. Kept dry, clean, comfortable and HOB>30. Will continue plan of care.
--- NOTE | 2019-12-27 15:20 | NUR ---
NURSE NOTES: Inserted left NGT. KUB is ordered.
--- NOTE | 2019-12-27 15:45 | NUR ---
NURSE NOTES: KUB taken. Will follow up.
--- NOTE | 2019-12-27 16:04 | Diagnostic Imaging Report ---
Indication: Post nasogastric tube placement Technique: Supine view of the abdomen Comparison: 12/24/2019 Findings: There is a nasogastric tube again demonstrated, tip which projects at the level of the gastric body/antrum junction. Considerable gas is seen within the stomach as well as within bowel loops although no dedra distention is demonstrated. The included lower thorax demonstrates cardiomegaly. Calcifications project over the right iliac crest. Uncertain as to their etiology Impression: Satisfactory nasogastric intubation Other findings as noted
--- NOTE | 2019-12-27 16:48 | NUR ---
NURSE NOTES: KUB xray shows NG tube in place. Will continue plan of care.
--- NOTE | 2019-12-27 17:02 | NUR ---
NURSE NOTES: Auscultated ABD and confirmed NG tube in place. Started tube feeding Vital AF 1.2 @55ml/hr.
--- NOTE | 2019-12-27 17:09 | NUR ---
CASE MANAGEMENT: REVIEW 12/27/2019 SI:A/C RESP FAILURE W/ HYPOXIA VS: T 97.3 HR 83 RR 27 B/P 123/53 SATS 97% ON VENTURI MASK FIO2 40 LABS: WBC 11.3 CO2 43 BUN 25 GLU 134 ALP 35 ABGs PCO2 66.7 PO2 104.4 HCO3 44.8 BE 17.8 IS:LASIX IV @ 5 ML/HR INSULIN ASPART SUBQ Q6H SOLU MEDROL IV Q6H DEPAKOTE PO Q12H LIPITOR PO QHS CEPHULAC PO BID ASA PO QD PHOS PO TID ICU
--- NOTE | 2019-12-27 17:10 | Cardiac Electrophysiology PN ---
Assessment/Plan Assessment/Plan 1. Recurrent respiratory failure with BNP of more than 19,000. Echo showed normal ejection fraction. On Lasix 5mg/hr, on Ventimask 2. Bradycardia requiring atropine due to respiratory failure as was on T piece at the time. 3. Bilateral UE edema. Venous Duplex was negative on 12/12/19. 4. History of Parkinson disease. 5. Hyperlipidemia. YOSELYN RN Subjective Subjective On Ventimask with frequent Trigeminal PVCs. Lasix drip decreased to 5 mg/hr Objective Last 24 Hour Vital Signs Date Time Temp Pulse Resp B/P (MAP) Pulse Ox O2 Delivery O2 Flow Rate FiO2 12/27/19 16:00 40 12/27/19 16:00 100 12/27/19 16:00 100 21 117/33 (61) 95 12/27/19 16:00 Venturi Mask 12/27/19 15:00 86 21 112/88 (96) 94 12/27/19 14:00 87 21 120/44 (69) 96 12/27/19 13:00 83 20 130/50 (76) 87 12/27/19 12:00 Venturi Mask 12/27/19 12:00 97.3 88 27 123/53 (76) 97 12/27/19 12:00 83 12/27/19 11:00 84 20 101/48 (65) 93 12/27/19 10:00 77 20 99/39 (59) 95 12/27/19 09:00 40 12/27/19 09:00 75 18 106/41 (62) 98 12/27/19 08:00 Bi-pap 12/27/19 08:00 97.2 80 21 130/47 (74) 98 12/27/19 08:00 79 12/27/19 08:00 50 12/27/19 07:00 81 20 114/42 (66) 100 12/27/19 06:50 77 15 98 50 12/27/19 06:50 98 Bi-Pap 50 12/27/19 06:00 71 18 120/43 (68) 98 12/27/19 05:00 72 18 122/42 (68) 99 12/27/19 04:00 Bi-pap 12/27/19 04:00 76 12/27/19 04:00 97.5 76 20 125/47 (73) 100 12/27/19 04:00 50 12/27/19 03:28 70 18 97 50 12/27/19 03:00 76 17 113/46 (68) 98 12/27/19 02:00 77 23 116/44 (68) 99 12/27/19 01:00 77 19 118/49 (72) 98 12/27/19 00:00 80 12/27/19 00:00 60 12/27/19 00:00 98.6 80 18 117/44 (68) 98 12/27/19 00:00 Bi-pap 12/26/19 23:30 81 21 100 50 12/26/19 23:00 81 20 123/48 (73) 98 12/26/19 22:00 86 21 121/49 (73) 100 12/26/19 21:00 86 22 117/44 (68) 98 12/26/19 20:42 17 125/36 Bi-pap 60 12/26/19 20:00 Bi-pap 12/26/19 20:00 98.9 88 21 120/29 (59) 98 12/26/19 20:00 60 12/26/19 19:43 99 Bi-Pap 60 12/26/19 19:30 157 29 99 60 12/26/19 19:18 121 12/26/19 19:00 106 25 155/64 (94) 93 12/26/19 18:00 96 23 138/59 (85) 94 Intake and Output 12/26/19 12/27/19 19:00 07:00 Intake Total 860.7 ml 280 ml Output Total 2670 ml 2900 ml Balance -1809.3 ml -2620 ml Free Water 200 ml IV Total 280.7 ml 60 ml Tube Feeding 380 ml 120 ml Other 100 ml Output Urine Total 2670 ml 2900 ml # Bowel Movements 1 Laboratory Tests Test 12/27/19 06:05 12/27/19 07:46 White Blood Count 11.3 K/UL (4.8-10.8) H Red Blood Count 3.37 M/UL (4.20-5.40) L Hemoglobin 10.8 G/DL (12.0-16.0) L Hematocrit 33.9 % (37.0-47.0) L Mean Corpuscular Volume 101 FL (80-99) H Mean Corpuscular Hemoglobin 32.0 PG (27.0-31.0) H Mean Corpuscular Hemoglobin Concent 31.7 G/DL (32.0-36.0) L Red Cell Distribution Width 12.7 % (11.6-14.8) Platelet Count 183 K/UL (150-450) Mean Platelet Volume 7.4 FL (6.5-10.1) Neutrophils (%) (Auto) 83.2 % (45.0-75.0) H Lymphocytes (%) (Auto) 11.0 % (20.0-45.0) L Monocytes (%) (Auto) 5.0 % (1.0-10.0) Eosinophils (%) (Auto) 0.0 % (0.0-3.0) Basophils (%) (Auto) 0.8 % (0.0-2.0) Sodium Level 144 MMOL/L (136-145) Potassium Level 4.0 MMOL/L (3.5-5.1) Chloride Level 99 MMOL/L (98-107) Carbon Dioxide Level 43 MMOL/L (21-32) *H Blood Urea Nitrogen 25 mg/dL (7-18) H Creatinine 0.8 MG/DL (0.55-1.30) Estimat Glomerular Filtration Rate > 60 mL/min (>60) Glucose Level 134 MG/DL (74-106) H Calcium Level 8.5 MG/DL (8.5-10.1) Phosphorus Level 3.8 MG/DL (2.5-4.9) Magnesium Level 1.8 MG/DL (1.8-2.4) Total Bilirubin 0.7 MG/DL (0.2-1.0) Direct Bilirubin 0.2 MG/DL (0.0-0.3) Aspartate Amino Transf (AST/SGOT) 15 U/L (15-37) Alanine Aminotransferase (ALT/SGPT) 38 U/L (12-78) Alkaline Phosphatase 35 U/L (46-116) L Total Protein 6.0 G/DL (6.4-8.2) L Albumin 3.0 G/DL (3.4-5.0) L Arterial Blood pH 7.445 (7.350-7.450) Arterial Blood Partial Pressure CO2 66.7 mmHg (35.0-45.0) *H Arterial Blood Partial Pressure O2 104.4 mmHg (75.0-100.0) H Arterial Blood HCO3 44.8 mmol/L (22.0-26.0) *H Arterial Blood Oxygen Saturation 97.3 % (95-100) Arterial Blood Base Excess 17.8 (-2-2) *H Raphael Test Positive Objective HEAD AND NECK: No JVD.BIPAP is on LUNGS: Coarse rhonchi. CARDIOVASCULAR: Regular S1 and S2 and tachycardic. ABDOMEN: Soft. EXTREMITIES: Bilateral Arm edema. Cameron Davies MD Dec 27, 2019 17:10
--- NOTE | 2019-12-27 18:02 | NUR ---
NURSE NOTES: Auscultated NG tube. No residual. Medication given as ordered.
--- NOTE | 2019-12-27 18:33 | General Progress Note ---
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 - Other specified diabetes mellitus without complications SNOMED: 711500315 (2) Parkinson disease ICD Codes: G20 - Parkinson's disease SNOMED: 44447742 (3) Schizophrenia ICD Codes: F20.9 - Schizophrenia, unspecified SNOMED: 92682901 (4) Hypertension ICD Codes: I10 - Essential (primary) hypertension SNOMED: 99657197 (5) Respiratory failure ICD Codes: J96.90 - Respiratory failure, unspecified, unspecified whether with hypoxia or hypercapnia SNOMED: 374983571 (6) Hypothyroidism ICD Codes: E03.9 - Hypothyroidism, unspecified SNOMED: 22611760 Status: progressing, unchanged Assessment/Plan: TSH improved - continue Levothyroxine 75 mcg IV daily continue Novolog sliding scale every 6 hours hypoglycemia protocol in order Subjective ROS Limited/Unobtainable: Yes Allergies: Coded Allergies: LITHIUM (Verified Allergy, Unknown, 02/07/19) Subjective events noted on ventimask glucose values are stable Item Value Date Time Bedside Blood Glucose 122 mg/dl H 12/27/19 1800 Bedside Blood Glucose 150 mg/dl H 12/27/19 1218 Bedside Blood Glucose 110 mg/dl 12/27/19 0533 Bedside Blood Glucose 164 mg/dl H 12/26/19 2331 Bedside Blood Glucose 178 mg/dl H 12/26/19 1800 Bedside Blood Glucose 173 mg/dl H 12/26/19 1214 Objective Last 24 Hour Vital Signs Date Time Temp Pulse Resp B/P (MAP) Pulse Ox O2 Delivery O2 Flow Rate FiO2 12/27/19 18:00 81 21 118/28 (58) 94 12/27/19 17:00 97.5 100 21 125/49 (74) 94 12/27/19 16:00 40 12/27/19 16:00 100 12/27/19 16:00 100 21 117/33 (61) 95 12/27/19 16:00 Venturi Mask 12/27/19 15:00 86 21 112/88 (96) 94 12/27/19 14:00 87 21 120/44 (69) 96 12/27/19 13:00 83 20 130/50 (76) 87 12/27/19 12:00 Venturi Mask 12/27/19 12:00 97.3 88 27 123/53 (76) 97 12/27/19 12:00 83 12/27/19 11:00 84 20 101/48 (65) 93 12/27/19 10:00 77 20 99/39 (59) 95 12/27/19 09:00 40 12/27/19 09:00 75 18 106/41 (62) 98 12/27/19 08:00 Bi-pap 12/27/19 08:00 97.2 80 21 130/47 (74) 98 12/27/19 08:00 79 12/27/19 08:00 50 12/27/19 07:00 81 20 114/42 (66) 100 12/27/19 06:50 77 15 98 50 12/27/19 06:50 98 Bi-Pap 50 12/27/19 06:00 71 18 120/43 (68) 98 12/27/19 05:00 72 18 122/42 (68) 99 12/27/19 04:00 Bi-pap 12/27/19 04:00 76 12/27/19 04:00 97.5 76 20 125/47 (73) 100 12/27/19 04:00 50 12/27/19 03:28 70 18 97 50 12/27/19 03:00 76 17 113/46 (68) 98 12/27/19 02:00 77 23 116/44 (68) 99 12/27/19 01:00 77 19 118/49 (72) 98 12/27/19 00:00 80 12/27/19 00:00 60 12/27/19 00:00 98.6 80 18 117/44 (68) 98 12/27/19 00:00 Bi-pap 12/26/19 23:30 81 21 100 50 12/26/19 23:00 81 20 123/48 (73) 98 12/26/19 22:00 86 21 121/49 (73) 100 12/26/19 21:00 86 22 117/44 (68) 98 12/26/19 20:42 17 125/36 Bi-pap 60 12/26/19 20:00 Bi-pap 12/26/19 20:00 98.9 88 21 120/29 (59) 98 12/26/19 20:00 60 12/26/19 19:43 99 Bi-Pap 60 12/26/19 19:30 157 29 99 60 12/26/19 19:18 121 12/26/19 19:00 106 25 155/64 (94) 93 Intake and Output 12/26/19 12/27/19 19:00 07:00 Intake Total 860.7 ml 280 ml Output Total 2670 ml 2900 ml Balance -1809.3 ml -2620 ml Free Water 200 ml IV Total 280.7 ml 60 ml Tube Feeding 380 ml 120 ml Other 100 ml Output Urine Total 2670 ml 2900 ml # Bowel Movements 1 Laboratory Tests 12/27/19 06:05: White Blood Count 11.3H, Red Blood Count 3.37L, Hemoglobin 10.8L, Hematocrit 33.9L, Mean Corpuscular Volume 101H, Mean Corpuscular Hemoglobin 32.0H, Mean Corpuscular Hemoglobin Concent 31.7L, Red Cell Distribution Width 12.7, Platelet Count 183, Mean Platelet Volume 7.4, Neutrophils (%) (Auto) 83.2H, Lymphocytes (%) (Auto) 11.0L, Monocytes (%) (Auto) 5.0, Eosinophils (%) (Auto) 0.0, Basophils (%) (Auto) 0.8, Sodium Level 144, Potassium Level 4.0, Chloride Level 99, Carbon Dioxide Level 43*H, Blood Urea Nitrogen 25H, Creatinine 0.8, Estimat Glomerular Filtration Rate > 60, Glucose Level 134H, Calcium Level 8.5, Phosphorus Level 3.8, Magnesium Level 1.8, Total Bilirubin 0.7, Direct Bilirubin 0.2, Aspartate Amino Transf (AST/SGOT) 15, Alanine Aminotransferase ( ALT/SGPT) 38, Alkaline Phosphatase 35L, Total Protein 6.0L, Albumin 3.0L 12/27/19 07:46: Arterial Blood pH 7.445, Arterial Blood Partial Pressure CO2 66.7*H, Arterial Blood Partial Pressure O2 104.4H, Arterial Blood HCO3 44.8*H, Arterial Blood Oxygen Saturation 97.3, Arterial Blood Base Excess 17.8*H, Raphael Test Positive Height (Feet): 5 Height (Inches): 7.00 Weight (Pounds): 203 General Appearance: lethargic Respiratory/Chest: decreased breath sounds Abdomen: normal bowel sounds Objective Current Medications Medications (Trade) Dose Ordered Sig/Angie Route PRN Reason Start Time Stop Time Status Last Admin Dose Admin Acetaminophen (Tylenol) 650 mg Q6H PRN ORAL Mild Pain (Pain Scale 1-3) 12/12/19 12:30 01/11/20 12:29 12/22/19 20:56 Acetaminophen (Tylenol) 1,000 mg Q6H PRN ORAL MODERATE PAIN 12/12/19 12:30 01/11/20 12:29 Amantadine HCl (Symmetrel) 100 mg TWICE A DAY ORAL 12/22/19 18:00 01/11/20 08:59 12/27/19 17:10 Aspirin (ASA) 324 mg DAILY ORAL 12/23/19 09:00 02/04/20 08:59 12/27/19 08:43 Atorvastatin Calcium (Lipitor) 10 mg BEDTIME ORAL 12/22/19 21:00 03/11/20 20:59 12/26/19 20:42 Calcium Carbonate (Os-Octavio) 500 mg THREE TIMES A DAY ORAL 12/22/19 13:00 03/20/20 17:59 12/27/19 17:09 Clonidine HCl (Catapres Tab) 0.1 mg Q6H PRN GT For high BP over 160 systolic 12/15/19 16:30 03/11/20 12:30 12/24/19 01:47 Dextrose (Dextrose 50%) 25 ml Q30M PRN IV Hypoglycemia 12/13/19 07:15 03/12/20 07:14 Dextrose (Dextrose 50%) 50 ml Q30M PRN IV Hypoglycemia 12/13/19 07:15 03/12/20 07:14 Divalproex Sodium (Depakote) 250 mg EVERY 12 HOURS ORAL 12/22/19 21:00 01/12/20 20:59 12/27/19 08:42 Docusate Sodium (Colace) 100 mg TWICE A DAY ORAL 12/22/19 18:00 01/14/20 17:59 12/27/19 17:09 Fentanyl Citrate 250 ml @ 0 mls/hr Q24H IV 12/18/19 20:53 03/17/20 20:52 12/19/19 20:56 Furosemide 100 mg/ Dextrose 100 ml @ 5 mls/hr Q20H IV 12/26/19 11:00 01/25/20 10:59 12/27/19 06:33 Insulin Aspart (NovoLOG) EVERY 6 HOURS SUBQ 12/13/19 12:00 03/12/20 11:59 12/27/19 12:18 Lactulose (Cephulac) 20 gm BID ORAL 12/25/19 09:00 01/24/20 08:59 12/27/19 17:09 Levothyroxine Sodium (Synthroid) 100 mcg DAILY IV 12/27/19 09:00 01/11/20 09:29 12/27/19 09:12 Methylprednisolone Sodium Succinate (Solu-MEDROL) 20 mg EVERY 6 HOURS IVP 12/22/19 12:00 03/18/20 11:59 12/27/19 17:09 Nitroglycerin (Ntg) 0.4 mg Q5MIN X 3 DOSES PRN SL CHEST PAIN 12/12/19 12:00 01/10/20 21:44 Pantoprazole (Protonix) 40 mg EVERY 12 HOURS IVP 12/14/19 09:00 01/13/20 08:59 12/27/19 08:42 Phosphorus (Phospha 250 Neutral) 250 mg THREE TIMES A DAY ORAL 12/22/19 13:00 01/14/20 08:59 12/27/19 17:10 Polyethylene Glycol (Miralax) 17 gm BEDTIME ORAL 12/22/19 21:00 01/18/20 20:59 12/26/19 20:41 Polyethylene Glycol (Miralax) 17 gm DAILYPRN PRN ORAL Constipation 12/24/19 19:00 01/23/20 18:59 Quetiapine Fumarate (SEROqueL) 50 mg Q12HR ORAL 12/22/19 21:00 02/05/20 20:59 12/27/19 08:43 Jabari Adams MD Dec 27, 2019 18:33
--- NOTE | 2019-12-27 18:54 | Hematology/Onc Progress Note ---
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 ( combination of moderate aortic regurgitation and severe mitral regurgitation) --> diuresis as per cards --> lasix last time # Severe ascending aortic dilatation --> per Dr Keke campbell # Hypertension # Parkinson disease # Hyperlipidemia # Hypothyroidism # Dementia # Obesity # Schizophrenia --> as per Farhadi --> restraints # Dvt ppx lovenox sq/scd's Appreciate systems security consultant care and alexei Cueva Subjective Allergies: Coded Allergies: LITHIUM (Verified Allergy, Unknown, 02/07/19) Subjective 12/12 labs are reviewed, intubated, with og, somewhat responsive, alexei rn 7 labs noted, hgb 7.8, tfs ok to start per gi 12/15 icu, restraints, no acute events, hep panel negative, sedated 12/16 no bleeding, in the icu, on abx, in restarints, sleepy, vent 12/17 is on vent, also is on abx, awake, with ogt 7/8 ng placed, hgb 9.6, no bleeding, no night sweats 12/19 labs reviewed, sedated, on vent, nob leeding, meds reviewed 12/20 remains on vent, audra bleeding, meds reviewed, no night sweats 12/22 hgb 9.5, to get zosyn x 1 more day, no night sweats meds reviewed 12/23 labs noted, no bleeding, with fm, no bleeding or night sweats 12/24 no bleeding, labs noted, no night sweats hgb 10, no hemolysis 12/25 remains fatigued, fm, labs are still pending from am 12/26 restraints, v mask, cxr reviewed Objective Objective Current Medications Medications (Trade) Dose Ordered Sig/Angie Route PRN Reason Start Time Stop Time Status Last Admin Dose Admin Acetaminophen (Tylenol) 650 mg Q6H PRN ORAL Mild Pain (Pain Scale 1-3) 12/12/19 12:30 01/11/20 12:29 12/22/19 20:56 Acetaminophen (Tylenol) 1,000 mg Q6H PRN ORAL MODERATE PAIN 12/12/19 12:30 01/11/20 12:29 Amantadine HCl (Symmetrel) 100 mg TWICE A DAY ORAL 12/22/19 18:00 01/11/20 08:59 12/27/19 17:10 Aspirin (ASA) 324 mg DAILY ORAL 12/23/19 09:00 02/04/20 08:59 12/27/19 08:43 Atorvastatin Calcium (Lipitor) 10 mg BEDTIME ORAL 12/22/19 21:00 03/11/20 20:59 12/26/19 20:42 Calcium Carbonate (Os-Octavio) 500 mg THREE TIMES A DAY ORAL 12/22/19 13:00 03/20/20 17:59 12/27/19 17:09 Clonidine HCl (Catapres Tab) 0.1 mg Q6H PRN GT For high BP over 160 systolic 12/15/19 16:30 03/11/20 12:30 12/24/19 01:47 Dextrose (Dextrose 50%) 25 ml Q30M PRN IV Hypoglycemia 12/13/19 07:15 03/12/20 07:14 Dextrose (Dextrose 50%) 50 ml Q30M PRN IV Hypoglycemia 12/13/19 07:15 03/12/20 07:14 Divalproex Sodium (Depakote) 250 mg EVERY 12 HOURS ORAL 12/22/19 21:00 01/12/20 20:59 12/27/19 08:42 Docusate Sodium (Colace) 100 mg TWICE A DAY ORAL 12/22/19 18:00 01/14/20 17:59 12/27/19 17:09 Fentanyl Citrate 250 ml @ 0 mls/hr Q24H IV 12/18/19 20:53 03/17/20 20:52 12/19/19 20:56 Furosemide 100 mg/ Dextrose 100 ml @ 5 mls/hr Q20H IV 12/26/19 11:00 01/25/20 10:59 12/27/19 06:33 Insulin Aspart (NovoLOG) EVERY 6 HOURS SUBQ 12/13/19 12:00 03/12/20 11:59 12/27/19 12:18 Lactulose (Cephulac) 20 gm BID ORAL 12/25/19 09:00 01/24/20 08:59 12/27/19 17:09 Levothyroxine Sodium (Synthroid) 100 mcg DAILY IV 12/27/19 09:00 01/11/20 09:29 12/27/19 09:12 Methylprednisolone Sodium Succinate (Solu-MEDROL) 20 mg EVERY 6 HOURS IVP 12/22/19 12:00 03/18/20 11:59 12/27/19 17:09 Nitroglycerin (Ntg) 0.4 mg Q5MIN X 3 DOSES PRN SL CHEST PAIN 12/12/19 12:00 01/10/20 21:44 Pantoprazole (Protonix) 40 mg EVERY 12 HOURS IVP 12/14/19 09:00 01/13/20 08:59 12/27/19 08:42 Phosphorus (Phospha 250 Neutral) 250 mg THREE TIMES A DAY ORAL 12/22/19 13:00 01/14/20 08:59 12/27/19 17:10 Polyethylene Glycol (Miralax) 17 gm BEDTIME ORAL 12/22/19 21:00 01/18/20 20:59 12/26/19 20:41 Polyethylene Glycol (Miralax) 17 gm DAILYPRN PRN ORAL Constipation 12/24/19 19:00 01/23/20 18:59 Quetiapine Fumarate (SEROqueL) 50 mg Q12HR ORAL 12/22/19 21:00 02/05/20 20:59 12/27/19 08:43 Last 24 Hour Vital Signs Date Time Temp Pulse Resp B/P (MAP) Pulse Ox O2 Delivery O2 Flow Rate FiO2 12/27/19 18:00 81 21 118/28 (58) 94 12/27/19 17:00 97.5 100 21 125/49 (74) 94 12/27/19 16:00 40 12/27/19 16:00 100 12/27/19 16:00 100 21 117/33 (61) 95 12/27/19 16:00 Venturi Mask 12/27/19 15:00 86 21 112/88 (96) 94 12/27/19 14:00 87 21 120/44 (69) 96 12/27/19 13:00 83 20 130/50 (76) 87 12/27/19 12:00 Venturi Mask 12/27/19 12:00 97.3 88 27 123/53 (76) 97 12/27/19 12:00 83 12/27/19 11:00 84 20 101/48 (65) 93 12/27/19 10:00 77 20 99/39 (59) 95 12/27/19 09:00 40 12/27/19 09:00 75 18 106/41 (62) 98 12/27/19 08:00 Bi-pap 12/27/19 08:00 97.2 80 21 130/47 (74) 98 12/27/19 08:00 79 12/27/19 08:00 50 12/27/19 07:00 81 20 114/42 (66) 100 12/27/19 06:50 77 15 98 50 12/27/19 06:50 98 Bi-Pap 50 12/27/19 06:00 71 18 120/43 (68) 98 12/27/19 05:00 72 18 122/42 (68) 99 12/27/19 04:00 Bi-pap 12/27/19 04:00 76 12/27/19 04:00 97.5 76 20 125/47 (73) 100 12/27/19 04:00 50 12/27/19 03:28 70 18 97 50 12/27/19 03:00 76 17 113/46 (68) 98 12/27/19 02:00 77 23 116/44 (68) 99 12/27/19 01:00 77 19 118/49 (72) 98 12/27/19 00:00 80 12/27/19 00:00 60 12/27/19 00:00 98.6 80 18 117/44 (68) 98 12/27/19 00:00 Bi-pap 12/26/19 23:30 81 21 100 50 12/26/19 23:00 81 20 123/48 (73) 98 12/26/19 22:00 86 21 121/49 (73) 100 12/26/19 21:00 86 22 117/44 (68) 98 12/26/19 20:42 17 125/36 Bi-pap 60 12/26/19 20:00 Bi-pap 12/26/19 20:00 98.9 88 21 120/29 (59) 98 12/26/19 20:00 60 12/26/19 19:43 99 Bi-Pap 60 12/26/19 19:30 157 29 99 60 12/26/19 19:18 121 12/26/19 19:00 106 25 155/64 (94) 93 12/26/19 18:00 96 23 138/59 (85) 94 12/26/19 17:00 96 23 106/91 (96) 95 12/26/19 16:00 Venturi Mask 12/26/19 16:00 98.0 92 22 136/53 (80) 95 12/26/19 16:00 35 12/26/19 16:00 97 12/26/19 15:00 100 24 155/73 (100) 95 12/26/19 14:00 95 22 146/43 (77) 96 12/26/19 13:00 91 23 142/65 (90) 98 12/26/19 12:00 88 12/26/19 12:00 97.6 86 21 134/53 (80) 96 12/26/19 12:00 Venturi Mask 12/26/19 12:00 40 12/26/19 11:00 86 20 136/53 (80) 97 12/26/19 10:00 84 18 124/52 (76) 98 12/26/19 09:00 94 23 140/60 (86) 97 12/26/19 08:00 40 12/26/19 08:00 Venturi Mask 12/26/19 08:00 87 12/26/19 08:00 97.6 87 22 153/59 (90) 96 12/26/19 07:27 97 Cool Aerosol 6.0 35 12/26/19 07:00 65 12 118/43 (68) 93 12/26/19 06:00 73 16 127/52 (77) 100 12/26/19 05:00 74 19 122/47 (72) 98 12/26/19 04:00 40 12/26/19 04:00 82 12/26/19 04:00 Bi-pap 12/26/19 04:00 97.7 82 25 134/49 (77) 99 12/26/19 03:15 71 15 99 40 12/26/19 03:00 68 19 151/65 (93) 100 12/26/19 02:00 72 20 138/59 (85) 100 12/26/19 01:00 69 21 140/51 (80) 99 12/26/19 00:00 40 12/26/19 00:00 Bi-pap 12/26/19 00:00 98.0 75 21 131/55 (80) 98 12/26/19 00:00 75 12/25/19 23:05 72 22 96 40 12/25/19 23:00 74 20 132/56 (81) 99 12/25/19 22:00 76 22 140/52 (81) 97 12/25/19 21:00 73 23 126/50 (75) 99 12/25/19 20:53 20 126/50 Bi-pap 40 12/25/19 20:00 97.8 74 19 138/57 (84) 98 12/25/19 20:00 Bi-pap 12/25/19 20:00 40 12/25/19 19:10 78 22 97 40 12/25/19 19:08 75 12/25/19 19:00 78 21 151/55 (87) 100 Intake and Output 12/26/19 12/27/19 19:00 07:00 Intake Total 860.7 ml 280 ml Output Total 2670 ml 2900 ml Balance -1809.3 ml -2620 ml Free Water 200 ml IV Total 280.7 ml 60 ml Tube Feeding 380 ml 120 ml Other 100 ml Output Urine Total 2670 ml 2900 ml # Bowel Movements 1 Labs Test 12/25/19 08:55 12/25/19 13:30 12/25/19 23:37 12/26/19 08:50 White Blood Count 7.6 K/UL (4.8-10.8) 8.8 K/UL (4.8-10.8) Red Blood Count 3.14 M/UL (4.20-5.40) 3.37 M/UL (4.20-5.40) Hemoglobin 10.0 G/DL (12.0-16.0) 10.7 G/DL (12.0-16.0) Hematocrit 31.9 % (37.0-47.0) 33.8 % (37.0-47.0) Mean Corpuscular Volume 102 FL (80-99) 100 FL (80-99) Mean Corpuscular Hemoglobin 31.9 PG (27.0-31.0) 31.7 PG (27.0-31.0) Mean Corpuscular Hemoglobin Concent 31.3 G/DL (32.0-36.0) 31.6 G/DL (32.0-36.0) Red Cell Distribution Width 13.2 % (11.6-14.8) 12.6 % (11.6-14.8) Platelet Count 195 K/UL (150-450) 216 K/UL (150-450) Mean Platelet Volume 7.0 FL (6.5-10.1) 7.6 FL (6.5-10.1) Neutrophils (%) (Auto) 79.3 % (45.0-75.0) 84.9 % (45.0-75.0) Lymphocytes (%) (Auto) 13.9 % (20.0-45.0) 9.5 % (20.0-45.0) Monocytes (%) (Auto) 5.8 % (1.0-10.0) 5.0 % (1.0-10.0) Eosinophils (%) (Auto) 0.3 % (0.0-3.0) 0.0 % (0.0-3.0) Basophils (%) (Auto) 0.7 % (0.0-2.0) 0.6 % (0.0-2.0) Sodium Level 145 MMOL/L (136-145) 143 MMOL/L (136-145) Potassium Level 4.2 MMOL/L (3.5-5.1) 4.5 MMOL/L (3.5-5.1) Chloride Level 105 MMOL/L (98-107) 102 MMOL/L (98-107) Carbon Dioxide Level 37 MMOL/L (21-32) 39 MMOL/L (21-32) Anion Gap 4 mmol/L (5-15) 2 mmol/L (5-15) Blood Urea Nitrogen 28 mg/dL (7-18) 26 mg/dL (7-18) Creatinine 0.8 MG/DL (0.55-1.30) 0.7 MG/DL (0.55-1.30) Estimat Glomerular Filtration Rate > 60 mL/min (>60) > 60 mL/min (>60) Glucose Level 171 MG/DL (74-106) 159 MG/DL (74-106) Calcium Level 7.8 MG/DL (8.5-10.1) 7.9 MG/DL (8.5-10.1) Total Bilirubin 0.6 MG/DL (0.2-1.0) 0.6 MG/DL (0.2-1.0) Aspartate Amino Transf (AST/SGOT) 26 U/L (15-37) 16 U/L (15-37) Alanine Aminotransferase (ALT/SGPT) 42 U/L (12-78) 39 U/L (12-78) Alkaline Phosphatase 32 U/L (46-116) 34 U/L (46-116) Total Protein 5.9 G/DL (6.4-8.2) 6.2 G/DL (6.4-8.2) Albumin 2.9 G/DL (3.4-5.0) 3.1 G/DL (3.4-5.0) Globulin 3.0 g/dL 3.1 g/dL Albumin/Globulin Ratio 1.0 (1.0-2.7) 1.0 (1.0-2.7) Thyroid Stimulating Hormone (TSH) 14.841 uiU/mL (0.358-3.740) Free Thyroxine 0.62 NG/DL (0.76-1.46) Arterial Blood pH 7.443 (7.350-7.450) Arterial Blood Partial Pressure CO2 53.5 mmHg (35.0-45.0) Arterial Blood Partial Pressure O2 67.6 mmHg (75.0-100.0) Arterial Blood HCO3 35.8 mmol/L (22.0-26.0) Arterial Blood Oxygen Saturation 91.9 % (95-100) Arterial Blood Base Excess 10.2 (-2-2) Raphael Test Positive POC Whole Blood Glucose 154 MG/DL (74-106) Test 12/26/19 11:51 12/26/19 17:39 12/27/19 06:05 12/27/19 07:46 White Blood Count 11.3 K/UL (4.8-10.8) Red Blood Count 3.37 M/UL (4.20-5.40) Hemoglobin 10.8 G/DL (12.0-16.0) Hematocrit 33.9 % (37.0-47.0) Mean Corpuscular Volume 101 FL (80-99) Mean Corpuscular Hemoglobin 32.0 PG (27.0-31.0) Mean Corpuscular Hemoglobin Concent 31.7 G/DL (32.0-36.0) Red Cell Distribution Width 12.7 % (11.6-14.8) Platelet Count 183 K/UL (150-450) Mean Platelet Volume 7.4 FL (6.5-10.1) Neutrophils (%) (Auto) 83.2 % (45.0-75.0) Lymphocytes (%) (Auto) 11.0 % (20.0-45.0) Monocytes (%) (Auto) 5.0 % (1.0-10.0) Eosinophils (%) (Auto) 0.0 % (0.0-3.0) Basophils (%) (Auto) 0.8 % (0.0-2.0) Sodium Level 144 MMOL/L (136-145) Potassium Level 4.0 MMOL/L (3.5-5.1) Chloride Level 99 MMOL/L (98-107) Carbon Dioxide Level 43 MMOL/L (21-32) Blood Urea Nitrogen 25 mg/dL (7-18) Creatinine 0.8 MG/DL (0.55-1.30) Estimat Glomerular Filtration Rate > 60 mL/min (>60) Glucose Level 134 MG/DL (74-106) Calcium Level 8.5 MG/DL (8.5-10.1) Phosphorus Level 3.8 MG/DL (2.5-4.9) Magnesium Level 1.8 MG/DL (1.8-2.4) Total Bilirubin 0.7 MG/DL (0.2-1.0) Direct Bilirubin 0.2 MG/DL (0.0-0.3) Aspartate Amino Transf (AST/SGOT) 15 U/L (15-37) Alanine Aminotransferase (ALT/SGPT) 38 U/L (12-78) Alkaline Phosphatase 35 U/L (46-116) Total Protein 6.0 G/DL (6.4-8.2) Albumin 3.0 G/DL (3.4-5.0) Arterial Blood pH 7.445 (7.350-7.450) Arterial Blood Partial Pressure CO2 66.7 mmHg (35.0-45.0) Arterial Blood Partial Pressure O2 104.4 mmHg (75.0-100.0) Arterial Blood HCO3 44.8 mmol/L (22.0-26.0) Arterial Blood Oxygen Saturation 97.3 % (95-100) Arterial Blood Base Excess 17.8 (-2-2) Raphael Test Positive Height (Feet): 5 Height (Inches): 7.00 Weight (Pounds): 203 Objective Vitals: reviewed General: NAD HEENT: nc, at ++ngt, v mask+ Neck: supple ++intubated Chest: decreased breath sounds bilaterally Cardiovascular: RRR, no s3, s4 Abdomen: soft, nontender, nd Extremities: 1-2 + edema, scd's Neuro: nonverbal : iman+ Frank Escobar MD Dec 27, 2019 18:54
--- NOTE | 2019-12-27 19:14 | NUR ---
HAND-OFF: Report given to DARREL Mars. Endorsed plan of care.
--- NOTE | 2019-12-27 19:32 | NUR ---
NURSE NOTES: Received pt asleep, respond to verbal stimuli, bilateral soft wrist restraints on for safety to avoid pulling out therapeutic devices. pt on 40% Venturi mask, 02 sat 96%, SR on the monitor, Bp stable afebrile, Pt on Lasix drip at 5ml/hr infusing to left forearm site atraumatic, diuresing well with yellowish urine lg in amt. Will continue to monitor.
[2019-12-27] MEDS: fentaNYL 2500mcg/NS 250ml 250 ML IV SCH (20:42)
[2019-12-27] MEDS: Miralax 17gm pkt ORAL SCH (20:48)
--- NOTE | 2019-12-27 20:58 | General Progress Note ---
Assessment/Plan Problem List: (1) Dyspnea ICD Codes: R06.00 - Dyspnea, unspecified SNOMED: 384750418 (2) Hypothyroidism ICD Codes: E03.9 - Hypothyroidism, unspecified SNOMED: 53573137 (3) Obese ICD Codes: E66.9 - Obesity, unspecified SNOMED: 483203174, 703719362 (4) Psychosis ICD Codes: F29 - Unspecified psychosis not due to a substance or known physiological condition SNOMED: 97760165 (5) Respiratory failure ICD Codes: J96.90 - Respiratory failure, unspecified, unspecified whether with hypoxia or hypercapnia SNOMED: 348166884 (6) Respiratory distress ICD Codes: R06.03 - Acute respiratory distress SNOMED: 548559139 (7) Dyspnea ICD Codes: R06.00 - Dyspnea, unspecified SNOMED: 517901977 (8) Pneumonia ICD Codes: J18.9 - Pneumonia, unspecified organism SNOMED: 682681180 (9) Acute and chronic respiratory failure ICD Codes: J96.20 - Acute and chronic respiratory failure, unspecified whether with hypoxia or hypercapnia SNOMED: 96897293 (10) Diabetes mellitus type 2 in nonobese ICD Codes: E11.9 - Type 2 diabetes mellitus without complications SNOMED: 743671488 (11) CHF (congestive heart failure) ICD Codes: I50.9 - Heart failure, unspecified SNOMED: 63691524 Qualifiers: Qualified Codes: I50.9 - Heart failure, unspecified (12) Hypoxia ICD Codes: R09.02 - Hypoxemia SNOMED: 167305909 (13) Elevated d-dimer ICD Codes: R79.89 - Other specified abnormal findings of blood chemistry SNOMED: 041340469 (14) Schizophrenia ICD Codes: F20.9 - Schizophrenia, unspecified SNOMED: 33053790 (15) Parkinson disease ICD Codes: G20 - Parkinson's disease SNOMED: 81883743 Status: progressing, unchanged Assessment/Plan: metabolic contraction avoid over diuresis afebrile still on bipap obesity covid negative pleural effusion Subjective ROS Limited/Unobtainable: Yes Allergies: Coded Allergies: LITHIUM (Verified Allergy, Unknown, 02/07/19) Objective Last 24 Hour Vital Signs Date Time Temp Pulse Resp B/P (MAP) Pulse Ox O2 Delivery O2 Flow Rate FiO2 12/27/19 19:37 95 Venturi Mask 14.0 55 12/27/19 19:00 81 21 123/41 (68) 93 12/27/19 18:00 81 21 118/28 (58) 94 12/27/19 17:00 97.5 100 21 125/49 (74) 94 12/27/19 16:00 40 12/27/19 16:00 100 12/27/19 16:00 100 21 117/33 (61) 95 12/27/19 16:00 Venturi Mask 12/27/19 15:00 86 21 112/88 (96) 94 12/27/19 14:00 87 21 120/44 (69) 96 12/27/19 13:00 83 20 130/50 (76) 87 12/27/19 12:00 Venturi Mask 12/27/19 12:00 97.3 88 27 123/53 (76) 97 12/27/19 12:00 83 12/27/19 11:00 84 20 101/48 (65) 93 12/27/19 10:00 77 20 99/39 (59) 95 12/27/19 09:00 40 12/27/19 09:00 75 18 106/41 (62) 98 12/27/19 08:00 Bi-pap 12/27/19 08:00 97.2 80 21 130/47 (74) 98 12/27/19 08:00 79 12/27/19 08:00 50 12/27/19 07:00 81 20 114/42 (66) 100 12/27/19 06:50 77 15 98 50 12/27/19 06:50 98 Bi-Pap 50 12/27/19 06:00 71 18 120/43 (68) 98 12/27/19 05:00 72 18 122/42 (68) 99 12/27/19 04:00 Bi-pap 12/27/19 04:00 76 12/27/19 04:00 97.5 76 20 125/47 (73) 100 12/27/19 04:00 50 12/27/19 03:28 70 18 97 50 12/27/19 03:00 76 17 113/46 (68) 98 12/27/19 02:00 77 23 116/44 (68) 99 12/27/19 01:00 77 19 118/49 (72) 98 12/27/19 00:00 80 12/27/19 00:00 60 12/27/19 00:00 98.6 80 18 117/44 (68) 98 12/27/19 00:00 Bi-pap 12/26/19 23:30 81 21 100 50 12/26/19 23:00 81 20 123/48 (73) 98 12/26/19 22:00 86 21 121/49 (73) 100 12/26/19 21:00 86 22 117/44 (68) 98 Intake and Output 12/26/19 12/27/19 19:00 07:00 Intake Total 860.7 ml 280 ml Output Total 2670 ml 2900 ml Balance -1809.3 ml -2620 ml Free Water 200 ml IV Total 280.7 ml 60 ml Tube Feeding 380 ml 120 ml Other 100 ml Output Urine Total 2670 ml 2900 ml # Bowel Movements 1 Laboratory Tests 12/27/19 06:05: White Blood Count 11.3H, Red Blood Count 3.37L, Hemoglobin 10.8L, Hematocrit 33.9L, Mean Corpuscular Volume 101H, Mean Corpuscular Hemoglobin 32.0H, Mean Corpuscular Hemoglobin Concent 31.7L, Red Cell Distribution Width 12.7, Platelet Count 183, Mean Platelet Volume 7.4, Neutrophils (%) (Auto) 83.2H, Lymphocytes (%) (Auto) 11.0L, Monocytes (%) (Auto) 5.0, Eosinophils (%) (Auto) 0.0, Basophils (%) (Auto) 0.8, Sodium Level 144, Potassium Level 4.0, Chloride Level 99, Carbon Dioxide Level 43*H, Blood Urea Nitrogen 25H, Creatinine 0.8, Estimat Glomerular Filtration Rate > 60, Glucose Level 134H, Calcium Level 8.5, Phosphorus Level 3.8, Magnesium Level 1.8, Total Bilirubin 0.7, Direct Bilirubin 0.2, Aspartate Amino Transf (AST/SGOT) 15, Alanine Aminotransferase ( ALT/SGPT) 38, Alkaline Phosphatase 35L, Total Protein 6.0L, Albumin 3.0L 12/27/19 07:46: Arterial Blood pH 7.445, Arterial Blood Partial Pressure CO2 66.7*H, Arterial Blood Partial Pressure O2 104.4H, Arterial Blood HCO3 44.8*H, Arterial Blood Oxygen Saturation 97.3, Arterial Blood Base Excess 17.8*H, Raphael Test Positive Height (Feet): 5 Height (Inches): 7.00 Weight (Pounds): 203 Dani Perera MD Dec 27, 2019 20:58
--- NOTE | 2019-12-27 22:00 | NUR ---
NURSE NOTES: Suctioned tk light yellow secretions moderate in amt. HOB kept elevated, watch for any resp. distress.
[2019-12-28] VITALS (32 sets, daily range): BP systolic 82–155; BP diastolic 21–64
--- NOTE | 2019-12-28 | NUR ---
NURSE NOTES: Sleeping well at this time with vss.
[2019-12-28] MEDS: NovoLOG Insulin Flexpen SUBQ SCH ×5 (00:10→23:10)
[2019-12-28] MEDS: Solu-MEDROL 40mg Inj IVP SCH ×5 (00:10→23:09)
--- NOTE | 2019-12-28 02:00 | NUR ---
NURSE NOTES: Diuresing lg amt of yellowish , approx 200ml/hr, Lasix drip on progress.
--- NOTE | 2019-12-28 04:00 | NUR ---
NURSE NOTES: Complete bed bath with bed changed done.
--- NOTE | 2019-12-28 06:00 | NUR ---
NURSE NOTES: Pt on and off restless. Bilateral soft wrist restraints maintained for safety.
--- NOTE | 2019-12-28 06:49 | General Progress Note ---
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 - Other specified diabetes mellitus without complications SNOMED: 918853709 (2) Parkinson disease ICD Codes: G20 - Parkinson's disease SNOMED: 64263927 (3) Schizophrenia ICD Codes: F20.9 - Schizophrenia, unspecified SNOMED: 91926285 (4) Hypertension ICD Codes: I10 - Essential (primary) hypertension SNOMED: 00381000 (5) Respiratory failure ICD Codes: J96.90 - Respiratory failure, unspecified, unspecified whether with hypoxia or hypercapnia SNOMED: 652007544 (6) Hypothyroidism ICD Codes: E03.9 - Hypothyroidism, unspecified SNOMED: 86390295 Status: progressing, unchanged Assessment/Plan: TSH improved - continue Levothyroxine 75 mcg IV daily continue Novolog sliding scale every 6 hours hypoglycemia protocol in order Subjective Allergies: Coded Allergies: LITHIUM (Verified Allergy, Unknown, 02/07/19) Subjective events noted still in ICU glucose values are stable Item Value Date Time Bedside Blood Glucose 197 mg/dl H 12/28/19 0629 Bedside Blood Glucose 158 mg/dl H 12/28/19 0010 Bedside Blood Glucose 122 mg/dl H 12/27/19 1800 Bedside Blood Glucose 150 mg/dl H 12/27/19 1218 Bedside Blood Glucose 110 mg/dl 12/27/19 0533 Bedside Blood Glucose 164 mg/dl H 12/26/19 2331 Objective Last 24 Hour Vital Signs Date Time Temp Pulse Resp B/P (MAP) Pulse Ox O2 Delivery O2 Flow Rate FiO2 12/28/19 05:00 82 27 123/46 (71) 94 12/28/19 04:00 98.4 90 23 118/46 (70) 95 12/28/19 04:00 40 12/28/19 04:00 Venturi Mask 12/28/19 04:00 78 12/28/19 03:00 80 18 123/47 (72) 94 12/28/19 02:00 103 155/64 (94) 97 12/28/19 01:00 90 21 126/51 (76) 98 12/28/19 00:00 Venturi Mask 12/28/19 00:00 76 12/28/19 00:00 40 12/28/19 00:00 98.2 78 20 114/45 (68) 93 12/27/19 23:00 79 20 115/39 (64) 97 12/27/19 22:00 82 20 113/46 (68) 93 12/27/19 21:00 82 22 115/42 (66) 95 12/27/19 20:00 40 12/27/19 20:00 90 12/27/19 20:00 98.0 84 30 123/45 (71) 96 12/27/19 20:00 Venturi Mask 12/27/19 19:37 95 Venturi Mask 14.0 55 12/27/19 19:00 81 21 123/41 (68) 93 12/27/19 18:00 81 21 118/28 (58) 94 12/27/19 17:00 97.5 100 21 125/49 (74) 94 12/27/19 16:00 40 12/27/19 16:00 100 12/27/19 16:00 100 21 117/33 (61) 95 12/27/19 16:00 Venturi Mask 12/27/19 15:00 86 21 112/88 (96) 94 12/27/19 14:00 87 21 120/44 (69) 96 12/27/19 13:00 83 20 130/50 (76) 87 12/27/19 12:00 Venturi Mask 12/27/19 12:00 97.3 88 27 123/53 (76) 97 12/27/19 12:00 83 12/27/19 11:00 84 20 101/48 (65) 93 12/27/19 10:00 77 20 99/39 (59) 95 12/27/19 09:00 40 12/27/19 09:00 75 18 106/41 (62) 98 12/27/19 08:00 Bi-pap 12/27/19 08:00 97.2 80 21 130/47 (74) 98 12/27/19 08:00 79 12/27/19 08:00 50 12/27/19 07:00 81 20 114/42 (66) 100 12/27/19 06:50 77 15 98 50 12/27/19 06:50 98 Bi-Pap 50 Intake and Output 12/27/19 12/28/19 19:00 07:00 Intake Total 645 ml 660 ml Output Total 1875 ml 1900 ml Balance -1230 ml -1240 ml Free Water 150 ml 60 ml IV Total 60 ml 50 ml Tube Feeding 435 ml 550 ml Output Urine Total 1875 ml 1900 ml Laboratory Tests 12/27/19 07:46: Arterial Blood pH 7.445, Arterial Blood Partial Pressure CO2 66.7*H, Arterial Blood Partial Pressure O2 104.4H, Arterial Blood HCO3 44.8*H, Arterial Blood Oxygen Saturation 97.3, Arterial Blood Base Excess 17.8*H, Raphael Test Positive Height (Feet): 5 Height (Inches): 7.00 Weight (Pounds): 203 General Appearance: lethargic Neck: normal alignment Cardiovascular: normal rate Respiratory/Chest: decreased breath sounds Abdomen: normal bowel sounds Objective Current Medications Medications (Trade) Dose Ordered Sig/Angie Route PRN Reason Start Time Stop Time Status Last Admin Dose Admin Acetaminophen (Tylenol) 650 mg Q6H PRN ORAL Mild Pain (Pain Scale 1-3) 12/12/19 12:30 01/11/20 12:29 12/22/19 20:56 Acetaminophen (Tylenol) 1,000 mg Q6H PRN ORAL MODERATE PAIN 12/12/19 12:30 01/11/20 12:29 Amantadine HCl (Symmetrel) 100 mg TWICE A DAY ORAL 12/22/19 18:00 01/11/20 08:59 12/27/19 17:10 Aspirin (ASA) 324 mg DAILY ORAL 12/23/19 09:00 02/04/20 08:59 12/27/19 08:43 Atorvastatin Calcium (Lipitor) 10 mg BEDTIME ORAL 12/22/19 21:00 03/11/20 20:59 12/27/19 20:48 Calcium Carbonate (Os-Octavio) 500 mg THREE TIMES A DAY ORAL 12/22/19 13:00 03/20/20 17:59 12/27/19 17:09 Clonidine HCl (Catapres Tab) 0.1 mg Q6H PRN GT For high BP over 160 systolic 12/15/19 16:30 03/11/20 12:30 12/24/19 01:47 Dextrose (Dextrose 50%) 25 ml Q30M PRN IV Hypoglycemia 12/13/19 07:15 03/12/20 07:14 Dextrose (Dextrose 50%) 50 ml Q30M PRN IV Hypoglycemia 12/13/19 07:15 03/12/20 07:14 Divalproex Sodium (Depakote) 250 mg EVERY 12 HOURS ORAL 12/22/19 21:00 01/12/20 20:59 12/27/19 20:48 Docusate Sodium (Colace) 100 mg TWICE A DAY ORAL 12/22/19 18:00 01/14/20 17:59 12/27/19 17:09 Fentanyl Citrate 250 ml @ 0 mls/hr Q24H IV 12/18/19 20:53 03/17/20 20:52 12/19/19 20:56 Furosemide 100 mg/ Dextrose 100 ml @ 5 mls/hr Q20H IV 12/26/19 11:00 01/25/20 10:59 12/28/19 03:44 Insulin Aspart (NovoLOG) EVERY 6 HOURS SUBQ 12/13/19 12:00 03/12/20 11:59 12/28/19 06:29 Lactulose (Cephulac) 20 gm BID ORAL 12/25/19 09:00 01/24/20 08:59 12/27/19 17:09 Levothyroxine Sodium (Synthroid) 100 mcg DAILY IV 12/27/19 09:00 01/11/20 09:29 12/27/19 09:12 Methylprednisolone Sodium Succinate (Solu-MEDROL) 20 mg EVERY 6 HOURS IVP 12/22/19 12:00 03/18/20 11:59 12/28/19 06:28 Nitroglycerin (Ntg) 0.4 mg Q5MIN X 3 DOSES PRN SL CHEST PAIN 12/12/19 12:00 01/10/20 21:44 Pantoprazole (Protonix) 40 mg EVERY 12 HOURS IVP 12/14/19 09:00 01/13/20 08:59 12/27/19 20:47 Phosphorus (Phospha 250 Neutral) 250 mg THREE TIMES A DAY ORAL 12/22/19 13:00 01/14/20 08:59 12/27/19 17:10 Polyethylene Glycol (Miralax) 17 gm BEDTIME ORAL 12/22/19 21:00 01/18/20 20:59 12/27/19 20:48 Polyethylene Glycol (Miralax) 17 gm DAILYPRN PRN ORAL Constipation 12/24/19 19:00 01/23/20 18:59 Quetiapine Fumarate (SEROqueL) 50 mg Q12HR ORAL 12/22/19 21:00 02/05/20 20:59 12/27/19 20:48 Jabari Adams MD Dec 28, 2019 06:49
--- NOTE | 2019-12-28 07:31 | NUR ---
HAND-OFF: Report given to Brittany ROJO..
--- NOTE | 2019-12-28 07:45 | NUR ---
NURSE NOTES: RECEIVED REPORT FROM NEHA Osborne PT IN BED. RESTLESS, AGITATED. OPENS EYES, PUPILS 3MM SLUGGISH. A/X 1. SR W/ PVC'S, ON MONITOR. VSS. PT VENTURI MASK 40%. SECRETIONS SCANT. LUNGS DIMINISHED. NGT PATENT, TUBE FEED, VITAL A.F @55ML/HR. ABDOMEN SOFT, ROUND. BOWEL SOUNDS HYPOACTIVE ALL QUADRANTS. NO BM AT THIS TIME. LANDIN SECURE, PATENT. DRAINING PALE URINE. 16 FR. SKIN-SEE ASSESSMENT. BILATERAL NON PITTING EDEMA OF UPPER EXTREMITIES. BILATERAL RADIAL PULSES WEAK. CAP REFILL <3SEC. NO JVD. IV ACCESS LT WRIST 22G, PATENT. RT FA 20G. LASIX DRIP, RUNNING AT 5MG/HR. CALL LIGHT IN REACH. BED ALARM ON, SIDE RAILS X2. BED LOCKED AND IN LOW POSITION. HOB 30. CONTACT PRECAUTIONS IN PLACE. WILL CONTINUE TO MONITOR PT CLOSELY.
--- NOTE | 2019-12-28 09:15 | Hematology/Onc Progress Note ---
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 ( combination of moderate aortic regurgitation and severe mitral regurgitation) --> diuresis as per cards --> lasix last time # Severe ascending aortic dilatation --> per Dr Keke campbell # Hypertension # Parkinson disease # Hyperlipidemia # Hypothyroidism # Dementia # Obesity # Schizophrenia --> as per [facility] --> restraints # Dvt ppx lovenox sq/scd's Appreciate salesforce consultant care and alexei Rn Subjective Constitutional: Denies: no symptoms, chills, fever, malaise, weakness, other HEENT: Denies: no symptoms, eye pain, blurred vision, tearing, double vision, ear pain, ear discharge, nose pain, nose congestion, throat pain, throat swelling, mouth pain, mouth swelling, other Cardiovascular: Denies: no symptoms, chest pain, edema, irregular heart rate, lightheadedness, palpitations, syncope, other Gastrointestinal/Abdominal: Denies: no symptoms, abdomen distended, abdominal pain, black stools, tarry stools, blood in stool, constipated, diarrhea, difficulty swallowing, nausea, poor appetite, poor fluid intake, rectal bleeding , vomiting, other Neurologic/Psychiatric: Denies: no symptoms, anxiety, depressed, emotional problems, headache, numbness, paresthesia, pre-existing deficit, seizure, tingling, tremors, weakness, other Endocrine: Denies: no symptoms, excessive sweating, flushing, intolerance to cold, intolerance to heat, increased hunger, increased thirst, increased urine, unexplained weight gain, unexplained weight loss, other Allergies: Coded Allergies: LITHIUM (Verified Allergy, Unknown, 02/07/19) Subjective 12/12 labs are reviewed, intubated, with og, somewhat responsive, dw rn 12/13 labs noted, hgb 7.8, tfs ok to start per gi 12/15 icu, restraints, no acute events, hep panel negative, sedated 12/16 no bleeding, in the icu, on abx, in restarints, sleepy, vent 12/17 is on vent, also is on abx, awake, with ogt 12/18 ng placed, hgb 9.6, no bleeding, no night sweats 12/19 labs reviewed, sedated, on vent, nob leeding, meds reviewed 12/20 remains on vent, audra bleeding, meds reviewed, no night sweats 12/22 hgb 9.5, to get zosyn x 1 more day, no night sweats meds reviewed 12/23 labs noted, no bleeding, with fm, no bleeding or night sweats 12/24 no bleeding, labs noted, no night sweats hgb 10, no hemolysis 12/25 remains fatigued, fm, labs are still pending from am 12/26 restraints, v mask, cxr reviewed 12/27 labs reviewed, no bleeding, hgb 10.8, no hemolysis on FM Objective Objective Current Medications Medications (Trade) Dose Ordered Sig/Angie Route PRN Reason Start Time Stop Time Status Last Admin Dose Admin Acetaminophen (Tylenol) 650 mg Q6H PRN ORAL Mild Pain (Pain Scale 1-3) 12/12/19 12:30 01/11/20 12:29 12/22/19 20:56 Acetaminophen (Tylenol) 1,000 mg Q6H PRN ORAL MODERATE PAIN 12/12/19 12:30 01/11/20 12:29 Amantadine HCl (Symmetrel) 100 mg TWICE A DAY ORAL 12/22/19 18:00 01/11/20 08:59 12/27/19 17:10 Aspirin (ASA) 324 mg DAILY ORAL 12/23/19 09:00 02/04/20 08:59 12/27/19 08:43 Atorvastatin Calcium (Lipitor) 10 mg BEDTIME ORAL 12/22/19 21:00 03/11/20 20:59 12/27/19 20:48 Calcium Carbonate (Os-Octavio) 500 mg THREE TIMES A DAY ORAL 12/22/19 13:00 03/20/20 17:59 12/27/19 17:09 Clonidine HCl (Catapres Tab) 0.1 mg Q6H PRN GT For high BP over 160 systolic 12/15/19 16:30 03/11/20 12:30 12/24/19 01:47 Dextrose (Dextrose 50%) 25 ml Q30M PRN IV Hypoglycemia 12/13/19 07:15 03/12/20 07:14 Dextrose (Dextrose 50%) 50 ml Q30M PRN IV Hypoglycemia 12/13/19 07:15 03/12/20 07:14 Divalproex Sodium (Depakote) 250 mg EVERY 12 HOURS ORAL 12/22/19 21:00 01/12/20 20:59 12/27/19 20:48 Docusate Sodium (Colace) 100 mg TWICE A DAY ORAL 12/22/19 18:00 01/14/20 17:59 12/27/19 17:09 Fentanyl Citrate 250 ml @ 0 mls/hr Q24H IV 12/18/19 20:53 03/17/20 20:52 12/19/19 20:56 Furosemide 100 mg/ Dextrose 100 ml @ 5 mls/hr Q20H IV 12/26/19 11:00 01/25/20 10:59 12/28/19 03:44 Insulin Aspart (NovoLOG) EVERY 6 HOURS SUBQ 12/13/19 12:00 03/12/20 11:59 12/28/19 06:29 Lactulose (Cephulac) 20 gm BID ORAL 12/25/19 09:00 01/24/20 08:59 12/27/19 17:09 Levothyroxine Sodium (Synthroid) 100 mcg DAILY IV 12/27/19 09:00 01/11/20 09:29 12/27/19 09:12 Methylprednisolone Sodium Succinate (Solu-MEDROL) 20 mg EVERY 6 HOURS IVP 12/22/19 12:00 03/18/20 11:59 12/28/19 06:28 Nitroglycerin (Ntg) 0.4 mg Q5MIN X 3 DOSES PRN SL CHEST PAIN 12/12/19 12:00 01/10/20 21:44 Pantoprazole (Protonix) 40 mg EVERY 12 HOURS IVP 12/14/19 09:00 01/13/20 08:59 12/27/19 20:47 Phosphorus (Phospha 250 Neutral) 250 mg THREE TIMES A DAY ORAL 12/22/19 13:00 01/14/20 08:59 12/27/19 17:10 Polyethylene Glycol (Miralax) 17 gm BEDTIME ORAL 12/22/19 21:00 01/18/20 20:59 12/27/19 20:48 Polyethylene Glycol (Miralax) 17 gm DAILYPRN PRN ORAL Constipation 12/24/19 19:00 01/23/20 18:59 Quetiapine Fumarate (SEROqueL) 50 mg Q12HR ORAL 12/22/19 21:00 02/05/20 20:59 12/27/19 20:48 Last 24 Hour Vital Signs Date Time Temp Pulse Resp B/P (MAP) Pulse Ox O2 Delivery O2 Flow Rate FiO2 12/28/19 07:00 84 27 123/34 (63) 96 12/28/19 06:00 89 27 128/47 (74) 96 12/28/19 05:00 82 27 123/46 (71) 94 12/28/19 04:00 98.4 90 23 118/46 (70) 95 12/28/19 04:00 40 12/28/19 04:00 Venturi Mask 12/28/19 04:00 78 12/28/19 03:00 80 18 123/47 (72) 94 12/28/19 02:00 103 155/64 (94) 97 12/28/19 01:00 90 21 126/51 (76) 98 12/28/19 00:00 Venturi Mask 12/28/19 00:00 76 12/28/19 00:00 40 12/28/19 00:00 98.2 78 20 114/45 (68) 93 12/27/19 23:00 79 20 115/39 (64) 97 12/27/19 22:00 82 20 113/46 (68) 93 12/27/19 21:00 82 22 115/42 (66) 95 12/27/19 20:00 40 12/27/19 20:00 90 12/27/19 20:00 98.0 84 30 123/45 (71) 96 12/27/19 20:00 Venturi Mask 12/27/19 19:37 95 Venturi Mask 14.0 55 12/27/19 19:00 81 21 123/41 (68) 93 12/27/19 18:00 81 21 118/28 (58) 94 12/27/19 17:00 97.5 100 21 125/49 (74) 94 12/27/19 16:00 40 12/27/19 16:00 100 12/27/19 16:00 100 21 117/33 (61) 95 12/27/19 16:00 Venturi Mask 12/27/19 15:00 86 21 112/88 (96) 94 12/27/19 14:00 87 21 120/44 (69) 96 12/27/19 13:00 83 20 130/50 (76) 87 12/27/19 12:00 Venturi Mask 12/27/19 12:00 97.3 88 27 123/53 (76) 97 12/27/19 12:00 83 12/27/19 11:00 84 20 101/48 (65) 93 12/27/19 10:00 77 20 99/39 (59) 95 12/27/19 09:00 40 12/27/19 09:00 75 18 106/41 (62) 98 12/27/19 08:00 Bi-pap 12/27/19 08:00 97.2 80 21 130/47 (74) 98 12/27/19 08:00 79 12/27/19 08:00 50 12/27/19 07:00 81 20 114/42 (66) 100 12/27/19 06:50 77 15 98 50 12/27/19 06:50 98 Bi-Pap 50 12/27/19 06:00 71 18 120/43 (68) 98 12/27/19 05:00 72 18 122/42 (68) 99 12/27/19 04:00 Bi-pap 12/27/19 04:00 76 12/27/19 04:00 97.5 76 20 125/47 (73) 100 12/27/19 04:00 50 12/27/19 03:28 70 18 97 50 12/27/19 03:00 76 17 113/46 (68) 98 12/27/19 02:00 77 23 116/44 (68) 99 7/16/20 01:00 77 19 118/49 (72) 98 12/27/19 00:00 80 12/27/19 00:00 60 12/27/19 00:00 98.6 80 18 117/44 (68) 98 12/27/19 00:00 Bi-pap 12/26/19 23:30 81 21 100 50 12/26/19 23:00 81 20 123/48 (73) 98 12/26/19 22:00 86 21 121/49 (73) 100 12/26/19 21:00 86 22 117/44 (68) 98 12/26/19 20:42 17 125/36 Bi-pap 60 12/26/19 20:00 Bi-pap 12/26/19 20:00 98.9 88 21 120/29 (59) 98 12/26/19 20:00 60 12/26/19 19:43 99 Bi-Pap 60 12/26/19 19:30 157 29 99 60 12/26/19 19:18 121 12/26/19 19:00 106 25 155/64 (94) 93 12/26/19 18:00 96 23 138/59 (85) 94 12/26/19 17:00 96 23 106/91 (96) 95 12/26/19 16:00 Venturi Mask 12/26/19 16:00 98.0 92 22 136/53 (80) 95 12/26/19 16:00 35 12/26/19 16:00 97 12/26/19 15:00 100 24 155/73 (100) 95 12/26/19 14:00 95 22 146/43 (77) 96 12/26/19 13:00 91 23 142/65 (90) 98 12/26/19 12:00 88 12/26/19 12:00 97.6 86 21 134/53 (80) 96 12/26/19 12:00 Venturi Mask 12/26/19 12:00 40 12/26/19 11:00 86 20 136/53 (80) 97 12/26/19 10:00 84 18 124/52 (76) 98 Intake and Output 12/27/19 12/28/19 19:00 07:00 Intake Total 645 ml 770 ml Output Total 1875 ml 2280 ml Balance -1230 ml -1510 ml Free Water 150 ml 60 ml IV Total 60 ml 50 ml Tube Feeding 435 ml 660 ml Output Urine Total 1875 ml 2280 ml Labs Test 12/25/19 13:30 12/25/19 23:37 12/26/19 08:50 12/26/19 11:51 Arterial Blood pH 7.443 (7.350-7.450) Arterial Blood Partial Pressure CO2 53.5 mmHg (35.0-45.0) Arterial Blood Partial Pressure O2 67.6 mmHg (75.0-100.0) Arterial Blood HCO3 35.8 mmol/L (22.0-26.0) Arterial Blood Oxygen Saturation 91.9 % (95-100) Arterial Blood Base Excess 10.2 (-2-2) Raphael Test Positive POC Whole Blood Glucose 154 MG/DL (74-106) White Blood Count 8.8 K/UL (4.8-10.8) Red Blood Count 3.37 M/UL (4.20-5.40) Hemoglobin 10.7 G/DL (12.0-16.0) Hematocrit 33.8 % (37.0-47.0) Mean Corpuscular Volume 100 FL (80-99) Mean Corpuscular Hemoglobin 31.7 PG (27.0-31.0) Mean Corpuscular Hemoglobin Concent 31.6 G/DL (32.0-36.0) Red Cell Distribution Width 12.6 % (11.6-14.8) Platelet Count 216 K/UL (150-450) Mean Platelet Volume 7.6 FL (6.5-10.1) Neutrophils (%) (Auto) 84.9 % (45.0-75.0) Lymphocytes (%) (Auto) 9.5 % (20.0-45.0) Monocytes (%) (Auto) 5.0 % (1.0-10.0) Eosinophils (%) (Auto) 0.0 % (0.0-3.0) Basophils (%) (Auto) 0.6 % (0.0-2.0) Sodium Level 143 MMOL/L (136-145) Potassium Level 4.5 MMOL/L (3.5-5.1) Chloride Level 102 MMOL/L (98-107) Carbon Dioxide Level 39 MMOL/L (21-32) Anion Gap 2 mmol/L (5-15) Blood Urea Nitrogen 26 mg/dL (7-18) Creatinine 0.7 MG/DL (0.55-1.30) Estimat Glomerular Filtration Rate > 60 mL/min (>60) Glucose Level 159 MG/DL (74-106) Calcium Level 7.9 MG/DL (8.5-10.1) Total Bilirubin 0.6 MG/DL (0.2-1.0) Aspartate Amino Transf (AST/SGOT) 16 U/L (15-37) Alanine Aminotransferase (ALT/SGPT) 39 U/L (12-78) Alkaline Phosphatase 34 U/L (46-116) Total Protein 6.2 G/DL (6.4-8.2) Albumin 3.1 G/DL (3.4-5.0) Globulin 3.1 g/dL Albumin/Globulin Ratio 1.0 (1.0-2.7) Test 12/26/19 17:39 12/27/19 06:05 12/27/19 07:46 White Blood Count 11.3 K/UL (4.8-10.8) Red Blood Count 3.37 M/UL (4.20-5.40) Hemoglobin 10.8 G/DL (12.0-16.0) Hematocrit 33.9 % (37.0-47.0) Mean Corpuscular Volume 101 FL (80-99) Mean Corpuscular Hemoglobin 32.0 PG (27.0-31.0) Mean Corpuscular Hemoglobin Concent 31.7 G/DL (32.0-36.0) Red Cell Distribution Width 12.7 % (11.6-14.8) Platelet Count 183 K/UL (150-450) Mean Platelet Volume 7.4 FL (6.5-10.1) Neutrophils (%) (Auto) 83.2 % (45.0-75.0) Lymphocytes (%) (Auto) 11.0 % (20.0-45.0) Monocytes (%) (Auto) 5.0 % (1.0-10.0) Eosinophils (%) (Auto) 0.0 % (0.0-3.0) Basophils (%) (Auto) 0.8 % (0.0-2.0) Sodium Level 144 MMOL/L (136-145) Potassium Level 4.0 MMOL/L (3.5-5.1) Chloride Level 99 MMOL/L (98-107) Carbon Dioxide Level 43 MMOL/L (21-32) Blood Urea Nitrogen 25 mg/dL (7-18) Creatinine 0.8 MG/DL (0.55-1.30) Estimat Glomerular Filtration Rate > 60 mL/min (>60) Glucose Level 134 MG/DL (74-106) Calcium Level 8.5 MG/DL (8.5-10.1) Phosphorus Level 3.8 MG/DL (2.5-4.9) Magnesium Level 1.8 MG/DL (1.8-2.4) Total Bilirubin 0.7 MG/DL (0.2-1.0) Direct Bilirubin 0.2 MG/DL (0.0-0.3) Aspartate Amino Transf (AST/SGOT) 15 U/L (15-37) Alanine Aminotransferase (ALT/SGPT) 38 U/L (12-78) Alkaline Phosphatase 35 U/L (46-116) Total Protein 6.0 G/DL (6.4-8.2) Albumin 3.0 G/DL (3.4-5.0) Arterial Blood pH 7.445 (7.350-7.450) Arterial Blood Partial Pressure CO2 66.7 mmHg (35.0-45.0) Arterial Blood Partial Pressure O2 104.4 mmHg (75.0-100.0) Arterial Blood HCO3 44.8 mmol/L (22.0-26.0) Arterial Blood Oxygen Saturation 97.3 % (95-100) Arterial Blood Base Excess 17.8 (-2-2) Raphael Test Positive Height (Feet): 5 Height (Inches): 7.00 Weight (Pounds): 210 Objective Vitals: reviewed General: NAD HEENT: nc, at ++ngt, v mask+ Neck: supple Chest: decreased breath sounds bilaterally Cardiovascular: RRR, no s3, s4 Abdomen: soft, nontender, nd Extremities: 1-2 + edema, scd's Neuro: nonverbal : iman+ Frank Escobar MD Dec 28, 2019 09:15
[2019-12-28 09:26] LABS: BASOPHILS % (AUTO) 0.4 % (0.0-2.0); HEMATOCRIT 38.9 % (37.0-47.0); HEMOGLOBIN 12.3 G/DL (12.0-16.0); LYMPHOCYTES % (AUTO) 10.5 % (20.0-45.0); MEAN CORPUSCULAR VOLUME 102 FL (80-99); MONOCYTES % (AUTO) 7.3 % (1.0-10.0); NEUTROPHILS % (AUTO) 81.8 % (45.0-75.0); PLATELET COUNT 214 K/UL (150-450); RED BLOOD COUNT 3.82 M/UL (4.20-5.40); RED CELL DISTRIBUTION WIDTH 13.2 % (11.6-14.8); WHITE BLOOD COUNT 14.1 K/UL (4.8-10.8)
[2019-12-28] MEDS: Amantadine 100mg cap ORAL SCH ×2 (09:28→18:01)
[2019-12-28] MEDS: Lactulose 20gm/30ml UDC ORAL SCH ×2 (09:28→18:00)
[2019-12-28] MEDS: Pantoprazole Inj IVP SCH ×2 (09:28→20:27)
[2019-12-28] MEDS: Os-Cal (Oyster Shell) 500mg tab ORAL SCH ×3 (09:29→18:01)
[2019-12-28] MEDS: Docusate 100mg cap ORAL SCH ×2 (09:29→18:01)
[2019-12-28] MEDS: Phospha 250 Neutral tab ORAL SCH ×3 (09:30→18:01)
[2019-12-28] MEDS: Aspirin Baby 81mg ORAL SCH (09:30)
[2019-12-28 09:36] LABS: BLOOD UREA NITROGEN 35 mg/dL (7-18); CALCIUM 8.6 MG/DL (8.5-10.1); CHLORIDE 96 MMOL/L (98-107); CREATININE 0.9 MG/DL (0.55-1.30); POTASSIUM 3.6 MMOL/L (3.5-5.1); SODIUM 144 MMOL/L (136-145)
[2019-12-28 09:38] LABS: CARBON DIOXIDE > 45 MMOL/L (21-32)
[2019-12-28 10:03] LABS: ALANINE AMINOTRANSFERASE 44 U/L (12-78); ALBUMIN 3.4 G/DL (3.4-5.0); ALKALINE PHOSPHATASE 41 U/L (46-116); ASPARTATE AMINO TRANSFERASE 28 U/L (15-37); BILIRUBIN,DIRECT 0.2 MG/DL (0.0-0.3); BILIRUBIN,TOTAL 0.7 MG/DL (0.2-1.0); PHOSPHORUS 3.5 MG/DL (2.5-4.9)
--- NOTE | 2019-12-28 10:12 | Infectious Diseases Prog Note ---
Assessment/Plan Assessment/Plan IMPRESSION: COPD exacerbation, Pneumonia, COID19 X 2: negative Acute respiratory failure with hypercapnia Dementia, Parkinson, Mitral valve regurgitation, Hypertension, Hypothyroidism. 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 RECOMMENDATION: Observe off antibiotic Subjective ROS Limited/Unobtainable: Yes Neurologic: Reports: confusion, other - on restraint Allergies: Coded Allergies: LITHIUM (Verified Allergy, Unknown, 02/07/19) Objective Last 24 Hour Vital Signs Date Time Temp Pulse Resp B/P (MAP) Pulse Ox O2 Delivery O2 Flow Rate FiO2 12/28/19 08:15 95 Venturi Mask 14.0 55 12/28/19 07:00 84 27 123/34 (63) 96 12/28/19 06:00 89 27 128/47 (74) 96 12/28/19 05:00 82 27 123/46 (71) 94 12/28/19 04:00 98.4 90 23 118/46 (70) 95 12/28/19 04:00 40 12/28/19 04:00 Venturi Mask 12/28/19 04:00 78 12/28/19 03:00 80 18 123/47 (72) 94 12/28/19 02:00 103 155/64 (94) 97 12/28/19 01:00 90 21 126/51 (76) 98 12/28/19 00:00 Venturi Mask 12/28/19 00:00 76 12/28/19 00:00 40 12/28/19 00:00 98.2 78 20 114/45 (68) 93 12/27/19 23:00 79 20 115/39 (64) 97 12/27/19 22:00 82 20 113/46 (68) 93 12/27/19 21:00 82 22 115/42 (66) 95 12/27/19 20:00 40 12/27/19 20:00 90 12/27/19 20:00 98.0 84 30 123/45 (71) 96 12/27/19 20:00 Venturi Mask 12/27/19 19:37 95 Venturi Mask 14.0 55 12/27/19 19:00 81 21 123/41 (68) 93 12/27/19 18:00 81 21 118/28 (58) 94 12/27/19 17:00 97.5 100 21 125/49 (74) 94 12/27/19 16:00 40 7/16/20 16:00 100 12/27/19 16:00 100 21 117/33 (61) 95 12/27/19 16:00 Venturi Mask 12/27/19 15:00 86 21 112/88 (96) 94 12/27/19 14:00 87 21 120/44 (69) 96 12/27/19 13:00 83 20 130/50 (76) 87 12/27/19 12:00 Venturi Mask 12/27/19 12:00 97.3 88 27 123/53 (76) 97 12/27/19 12:00 83 12/27/19 11:00 84 20 101/48 (65) 93 Height (Feet): 5 Height (Inches): 7.00 Weight (Pounds): 210 HEENT: mucous membranes moist Respiratory/Chest: decreased breath sounds, other - oxygen by mask Cardiovascular: normal rate Abdomen: soft, non tender, other - NG tube Extremities: no edema Neurologic/Psychiatric: alert, responsive Laboratory Tests Test 12/28/19 08:50 White Blood Count 14.1 K/UL (4.8-10.8) H Red Blood Count 3.82 M/UL (4.20-5.40) L Hemoglobin 12.3 G/DL (12.0-16.0) Hematocrit 38.9 % (37.0-47.0) Mean Corpuscular Volume 102 FL (80-99) H Mean Corpuscular Hemoglobin 32.2 PG (27.0-31.0) H Mean Corpuscular Hemoglobin Concent 31.6 G/DL (32.0-36.0) L Red Cell Distribution Width 13.2 % (11.6-14.8) Platelet Count 214 K/UL (150-450) Mean Platelet Volume 8.1 FL (6.5-10.1) Neutrophils (%) (Auto) 81.8 % (45.0-75.0) H Lymphocytes (%) (Auto) 10.5 % (20.0-45.0) L Monocytes (%) (Auto) 7.3 % (1.0-10.0) Eosinophils (%) (Auto) 0.0 % (0.0-3.0) Basophils (%) (Auto) 0.4 % (0.0-2.0) Sodium Level 144 MMOL/L (136-145) Potassium Level 3.6 MMOL/L (3.5-5.1) Chloride Level 96 MMOL/L (98-107) L Carbon Dioxide Level > 45 MMOL/L (21-32) *H Blood Urea Nitrogen 35 mg/dL (7-18) H Creatinine 0.9 MG/DL (0.55-1.30) Estimat Glomerular Filtration Rate > 60 mL/min (>60) Glucose Level 159 MG/DL (74-106) H Calcium Level 8.6 MG/DL (8.5-10.1) Phosphorus Level 3.5 MG/DL (2.5-4.9) Magnesium Level 1.9 MG/DL (1.8-2.4) Total Bilirubin 0.7 MG/DL (0.2-1.0) Direct Bilirubin 0.2 MG/DL (0.0-0.3) Aspartate Amino Transf (AST/SGOT) 28 U/L (15-37) Alanine Aminotransferase (ALT/SGPT) 44 U/L (12-78) Alkaline Phosphatase 41 U/L (46-116) L Total Protein 7.2 G/DL (6.4-8.2) Albumin 3.4 G/DL (3.4-5.0) Valproic Acid (Depakene) Level 12 MCG/ML (50-100) L Current Medications Medications (Trade) Dose Ordered Sig/Angie Route PRN Reason Start Time Stop Time Status Last Admin Dose Admin Acetaminophen (Tylenol) 650 mg Q6H PRN ORAL Mild Pain (Pain Scale 1-3) 12/12/19 12:30 01/11/20 12:29 12/22/19 20:56 Acetaminophen (Tylenol) 1,000 mg Q6H PRN ORAL MODERATE PAIN 12/12/19 12:30 01/11/20 12:29 Amantadine HCl (Symmetrel) 100 mg TWICE A DAY ORAL 12/22/19 18:00 01/11/20 08:59 12/28/19 09:28 Aspirin (ASA) 324 mg DAILY ORAL 12/23/19 09:00 02/04/20 08:59 12/28/19 09:30 Atorvastatin Calcium (Lipitor) 10 mg BEDTIME ORAL 12/22/19 21:00 03/11/20 20:59 12/27/19 20:48 Calcium Carbonate (Os-Octavio) 500 mg THREE TIMES A DAY ORAL 12/22/19 13:00 03/20/20 17:59 12/28/19 09:29 Clonidine HCl (Catapres Tab) 0.1 mg Q6H PRN GT For high BP over 160 systolic 12/15/19 16:30 03/11/20 12:30 12/24/19 01:47 Dextrose (Dextrose 50%) 25 ml Q30M PRN IV Hypoglycemia 12/13/19 07:15 03/12/20 07:14 Dextrose (Dextrose 50%) 50 ml Q30M PRN IV Hypoglycemia 12/13/19 07:15 03/12/20 07:14 Divalproex Sodium (Depakote) 250 mg EVERY 12 HOURS ORAL 12/22/19 21:00 01/12/20 20:59 12/28/19 09:29 Docusate Sodium (Colace) 100 mg TWICE A DAY ORAL 12/22/19 18:00 01/14/20 17:59 12/28/19 09:29 Fentanyl Citrate 250 ml @ 0 mls/hr Q24H IV 12/18/19 20:53 03/17/20 20:52 12/19/19 20:56 Furosemide 100 mg/ Dextrose 100 ml @ 5 mls/hr Q20H IV 12/26/19 11:00 01/25/20 10:59 12/28/19 03:44 Insulin Aspart (NovoLOG) EVERY 6 HOURS SUBQ 12/13/19 12:00 03/12/20 11:59 12/28/19 06:29 Lactulose (Cephulac) 20 gm BID ORAL 12/25/19 09:00 01/24/20 08:59 12/28/19 09:28 Levothyroxine Sodium (Synthroid) 100 mcg DAILY IV 12/27/19 09:00 01/11/20 09:29 12/28/19 09:28 Methylprednisolone Sodium Succinate (Solu-MEDROL) 20 mg EVERY 6 HOURS IVP 12/22/19 12:00 03/18/20 11:59 12/28/19 06:28 Nitroglycerin (Ntg) 0.4 mg Q5MIN X 3 DOSES PRN SL CHEST PAIN 12/12/19 12:00 01/10/20 21:44 Pantoprazole (Protonix) 40 mg EVERY 12 HOURS IVP 12/14/19 09:00 01/13/20 08:59 12/28/19 09:28 Phosphorus (Phospha 250 Neutral) 250 mg THREE TIMES A DAY ORAL 12/22/19 13:00 01/14/20 08:59 12/28/19 09:30 Polyethylene Glycol (Miralax) 17 gm BEDTIME ORAL 12/22/19 21:00 01/18/20 20:59 12/27/19 20:48 Polyethylene Glycol (Miralax) 17 gm DAILYPRN PRN ORAL Constipation 12/24/19 19:00 01/23/20 18:59 Quetiapine Fumarate (SEROqueL) 50 mg Q12HR ORAL 12/22/19 21:00 02/05/20 20:59 12/28/19 09:29 Lei Chan MD Dec 28, 2019 10:12
--- NOTE | 2019-12-28 10:50 | NUR ---
NURSE NOTES: PT IN BED. DROWSY, FATIGUED. OPENS EYES, A/X 1. SR W/ PVC'S, ON MONITOR. VSS. LUNGS DIMINISHED. NGT PATENT, TUBE FEED, VITAL A.F @55ML/HR. ABDOMEN SOFT, ROUND. BOWEL SOUNDS HYPOACTIVE ALL QUADRANTS. ONE BM, SMALL, SOFT. LANDIN SECURE, PATENT. BILATERAL NON PITTING EDEMA OF UPPER EXTREMITIES. BILATERAL RADIAL PULSES WEAK. CAP REFILL <3SEC. NO JVD. IV ACCESS RT HAND 22G, PATENT. RT FA 20G. LASIX DRIP, RUNNING AT 5MG/HR. CALL LIGHT IN REACH. BED ALARM ON. BED LOCKED AND IN LOW POSITION. CONTACT PRECAUTIONS IN PLACE. WILL CONTINUE TO IMPLEMENT PLAN OF CARE.
--- NOTE | 2019-12-28 11:00 | NUR ---
NURSE NOTES: LATE ENTRY: PT SUCTIONED NASOPHARGEAL, CONTINUES TO SAT LOW 90'S. PT RESTLESS, AGITATED, TACHYPNEIC. ABG TAKEN ON VENTURI MASK 40%, PH 7.48, PO2 80.2, HCO3 51.8. R.T TO PLACE PT ON BIPAP 18/6, 40%. WILL INFORMED MD MONGE.
--- NOTE | 2019-12-28 11:07 | Nephrology Progress Note ---
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 Respiratory distress most likely secondary to pulmonary edema and or COPD exacerbation. Hyponatremia. Obese. Hypothyroidism. Elevated d-dimer. Elevated liver enzymes Plan December 27: Lab reviewed. Continues to retain CO2. On Venturi mask. Continue per pulmonary. Stable from renal standpoint of view. December 26: Lab reviewed. ABG reviewed. Patient retaining CO2. Remains on BiPAP. Continue per pulmonary. Stable from renal standpoint of view. December 25: Lab reviewed. TSH remains high. On nonrebreathing mask. Renal parameters stable. Synthroid dose increased. IV fluids stopped. December 24: Lab reviewed. Still on BiPAP. Renal parameters stable. December 23: Lab reviewed. Remains on BiPAP. Agitated at times. ABG ordered. Serum sodium improved. December 22: Lab reviewed. On BiPAP. Stable from renal standpoint of view. Will follow serum sodium. December 21: Labs reviewed. On nonrebreather mask. D5W 50 cc an hour started for hypernatremia. Magnesium supplement given. Continue per consultants. December 20: Patient on weaning trial. No labs done today. Discussed with RN. Continue per consultants. December 19: Patient remains intubated. Renal parameters stable. Discussed with RN. Continue per consultants. December 18: Patient self extubated yesterday however was reintubated. Remains stable from renal standpoint of view. Discussed with RN. Discussed with Dr. Myers. December 17: Remains intubated. Remains full code. Failed weaning. Stable from renal standpoint of view. Continue per consultants. Discussed with DARREL [place]. December 16: Remains intubated. Full code. Weaning in process. Stable from renal standpoint of view. December 15: Remains vented. Electrolytes improved. Continue per consultants. December 14: Patient remains in ICU intubated on ventilator. Potassium low. Phosphorus low. Supplements given. Renal parameters are stable. Continue per consultants. December 13: Patient remains in ICU intubated on ventilator. Discussed with RN. Labs reviewed. Creatinine 1.3. Potassium supplements given. Mag sulfate IV 2 g given. Continue per consultants. December 12: Patient in ICU. Intubated on ventilator. Discussed with RN. Labs reviewed. Potassium supplement given. Continue per consultants. Arterial blood gas indicative of CO2 retention. Patient on the way to ICU for intubation. Continue per pulmonary management. Pulmonary support, Check 2D echocardiogram. Previous 2D echo had a 50% ejection fraction. Keep blood sugar and blood pressure in check. Thyroid panel. Monitor electrolytes and renal parameters. Afterload reduction. Diuretics Monitor serum calcium, supplements via NG tube. Per orders. Subjective ROS Limited/Unobtainable: Yes Objective Objective Last 24 Hour Vital Signs Date Time Temp Pulse Resp B/P (MAP) Pulse Ox O2 Delivery O2 Flow Rate FiO2 12/28/19 08:15 95 Venturi Mask 14.0 55 12/28/19 07:00 84 27 123/34 (63) 96 12/28/19 06:00 89 27 128/47 (74) 96 12/28/19 05:00 82 27 123/46 (71) 94 12/28/19 04:00 98.4 90 23 118/46 (70) 95 12/28/19 04:00 40 12/28/19 04:00 Venturi Mask 12/28/19 04:00 78 12/28/19 03:00 80 18 123/47 (72) 94 12/28/19 02:00 103 155/64 (94) 97 12/28/19 01:00 90 21 126/51 (76) 98 12/28/19 00:00 Venturi Mask 12/28/19 00:00 76 12/28/19 00:00 40 12/28/19 00:00 98.2 78 20 114/45 (68) 93 12/27/19 23:00 79 20 115/39 (64) 97 12/27/19 22:00 82 20 113/46 (68) 93 12/27/19 21:00 82 22 115/42 (66) 95 12/27/19 20:00 40 12/27/19 20:00 90 12/27/19 20:00 98.0 84 30 123/45 (71) 96 12/27/19 20:00 Venturi Mask 12/27/19 19:37 95 Venturi Mask 14.0 55 12/27/19 19:00 81 21 123/41 (68) 93 12/27/19 18:00 81 21 118/28 (58) 94 12/27/19 17:00 97.5 100 21 125/49 (74) 94 12/27/19 16:00 40 12/27/19 16:00 100 12/27/19 16:00 100 21 117/33 (61) 95 12/27/19 16:00 Venturi Mask 12/27/19 15:00 86 21 112/88 (96) 94 12/27/19 14:00 87 21 120/44 (69) 96 12/27/19 13:00 83 20 130/50 (76) 87 12/27/19 12:00 Venturi Mask 12/27/19 12:00 97.3 88 27 123/53 (76) 97 12/27/19 12:00 83 Intake and Output 12/27/19 12/28/19 19:00 07:00 Intake Total 645 ml 770 ml Output Total 1875 ml 2280 ml Balance -1230 ml -1510 ml Free Water 150 ml 60 ml IV Total 60 ml 50 ml Tube Feeding 435 ml 660 ml Output Urine Total 1875 ml 2280 ml Current Medications Medications (Trade) Dose Ordered Sig/Angie Route PRN Reason Start Time Stop Time Status Last Admin Dose Admin Acetaminophen (Tylenol) 650 mg Q6H PRN ORAL Mild Pain (Pain Scale 1-3) 12/12/19 12:30 01/11/20 12:29 12/22/19 20:56 Acetaminophen (Tylenol) 1,000 mg Q6H PRN ORAL MODERATE PAIN 12/12/19 12:30 01/11/20 12:29 Amantadine HCl (Symmetrel) 100 mg TWICE A DAY ORAL 12/22/19 18:00 01/11/20 08:59 12/28/19 09:28 Aspirin (ASA) 324 mg DAILY ORAL 12/23/19 09:00 02/04/20 08:59 12/28/19 09:30 Atorvastatin Calcium (Lipitor) 10 mg BEDTIME ORAL 12/22/19 21:00 03/11/20 20:59 12/27/19 20:48 Calcium Carbonate (Os-Octavio) 500 mg THREE TIMES A DAY ORAL 12/22/19 13:00 03/20/20 17:59 12/28/19 09:29 Clonidine HCl (Catapres Tab) 0.1 mg Q6H PRN GT For high BP over 160 systolic 12/15/19 16:30 03/11/20 12:30 12/24/19 01:47 Dextrose (Dextrose 50%) 25 ml Q30M PRN IV Hypoglycemia 12/13/19 07:15 03/12/20 07:14 Dextrose (Dextrose 50%) 50 ml Q30M PRN IV Hypoglycemia 12/13/19 07:15 03/12/20 07:14 Divalproex Sodium (Depakote) 250 mg EVERY 12 HOURS ORAL 12/22/19 21:00 01/12/20 20:59 12/28/19 09:29 Docusate Sodium (Colace) 100 mg TWICE A DAY ORAL 12/22/19 18:00 01/14/20 17:59 12/28/19 09:29 Fentanyl Citrate 250 ml @ 0 mls/hr Q24H IV 12/18/19 20:53 03/17/20 20:52 12/19/19 20:56 Furosemide 100 mg/ Dextrose 100 ml @ 5 mls/hr Q20H IV 12/26/19 11:00 01/25/20 10:59 12/28/19 03:44 Insulin Aspart (NovoLOG) EVERY 6 HOURS SUBQ 12/13/19 12:00 03/12/20 11:59 12/28/19 06:29 Lactulose (Cephulac) 20 gm BID ORAL 12/25/19 09:00 01/24/20 08:59 12/28/19 09:28 Levothyroxine Sodium (Synthroid) 100 mcg DAILY IV 12/27/19 09:00 01/11/20 09:29 12/28/19 09:28 Methylprednisolone Sodium Succinate (Solu-MEDROL) 20 mg EVERY 6 HOURS IVP 12/22/19 12:00 03/18/20 11:59 12/28/19 06:28 Nitroglycerin (Ntg) 0.4 mg Q5MIN X 3 DOSES PRN SL CHEST PAIN 12/12/19 12:00 01/10/20 21:44 Pantoprazole (Protonix) 40 mg EVERY 12 HOURS IVP 12/14/19 09:00 01/13/20 08:59 12/28/19 09:28 Phosphorus (Phospha 250 Neutral) 250 mg THREE TIMES A DAY ORAL 12/22/19 13:00 01/14/20 08:59 12/28/19 09:30 Polyethylene Glycol (Miralax) 17 gm BEDTIME ORAL 12/22/19 21:00 01/18/20 20:59 12/27/19 20:48 Polyethylene Glycol (Miralax) 17 gm DAILYPRN PRN ORAL Constipation 12/24/19 19:00 01/23/20 18:59 Quetiapine Fumarate (SEROqueL) 50 mg Q12HR ORAL 12/22/19 21:00 02/05/20 20:59 12/28/19 09:29 Laboratory Tests 12/28/19 08:50: White Blood Count 14.1H, Red Blood Count 3.82L, Hemoglobin 12.3, Hematocrit 38.9 , Mean Corpuscular Volume 102H, Mean Corpuscular Hemoglobin 32.2H, Mean Corpuscular Hemoglobin Concent 31.6L, Red Cell Distribution Width 13.2, Platelet Count 214, Mean Platelet Volume 8.1, Neutrophils (%) (Auto) 81.8H, Lymphocytes (%) (Auto) 10.5L, Monocytes (%) (Auto) 7.3, Eosinophils (%) (Auto) 0.0, Basophils (%) (Auto) 0.4, Sodium Level 144, Potassium Level 3.6, Chloride Level 96L, Carbon Dioxide Level > 45*H, Blood Urea Nitrogen 35H, Creatinine 0.9 , Estimat Glomerular Filtration Rate > 60, Glucose Level 159H, Calcium Level 8.6 , Phosphorus Level 3.5, Magnesium Level 1.9, Total Bilirubin 0.7, Direct Bilirubin 0.2, Aspartate Amino Transf (AST/SGOT) 28, Alanine Aminotransferase ( ALT/SGPT) 44, Alkaline Phosphatase 41L, Total Protein 7.2, Albumin 3.4, Valproic Acid (Depakene) Level 12L Height (Feet): 5 Height (Inches): 7.00 Weight (Pounds): 210 General Appearance: no apparent distress, lethargic EENT: other - On Venturi mask Cardiovascular: tachycardia Respiratory/Chest: decreased breath sounds Abdomen: distended Bryan Ochoa MD Dec 28, 2019 11:07
--- NOTE | 2019-12-28 11:20 | NUR ---
NURSE NOTES: LATE ENTRY: INFORMED MD BARBOSA, PT RESPIRATORY DISTRESS, SATING IN 90'S, MODERATE SECRETIONS THICK. VERY LETHARGIC, DROWSY, AGITATED. RECEIVED ORDER TO CONTINUE BIPAP NEEDED.
--- NOTE | 2019-12-28 12:15 | General Progress Note ---
Assessment/Plan Status: progressing, unchanged Assessment/Plan: Assessment - Resp failure - r/o COVID -- x 2 negative - COPD - HTN - Anemia - Abnormal LFT Recommendations - extubated now - Elevate HOB - abx - follow labs - f/u hepatitis serologies>>> neg -repeat labs -NGTf titrate up as tolerated to the goal rate -swallow eval when more stable -bowel regimen -back on BIPAP Subjective ROS Limited/Unobtainable: No Allergies: Coded Allergies: LITHIUM (Verified Allergy, Unknown, 02/07/19) Objective Last 24 Hour Vital Signs Date Time Temp Pulse Resp B/P (MAP) Pulse Ox O2 Delivery O2 Flow Rate FiO2 12/28/19 12:00 60 12/28/19 11:00 60 12/28/19 08:15 95 Venturi Mask 14.0 55 12/28/19 08:00 40 12/28/19 07:00 84 27 123/34 (63) 96 12/28/19 06:00 89 27 128/47 (74) 96 12/28/19 05:00 82 27 123/46 (71) 94 12/28/19 04:00 98.4 90 23 118/46 (70) 95 12/28/19 04:00 40 12/28/19 04:00 Venturi Mask 12/28/19 04:00 78 12/28/19 03:00 80 18 123/47 (72) 94 12/28/19 02:00 103 155/64 (94) 97 12/28/19 01:00 90 21 126/51 (76) 98 12/28/19 00:00 Venturi Mask 12/28/19 00:00 76 12/28/19 00:00 40 12/28/19 00:00 98.2 78 20 114/45 (68) 93 12/27/19 23:00 79 20 115/39 (64) 97 12/27/19 22:00 82 20 113/46 (68) 93 12/27/19 21:00 82 22 115/42 (66) 95 12/27/19 20:00 40 12/27/19 20:00 90 12/27/19 20:00 98.0 84 30 123/45 (71) 96 12/27/19 20:00 Venturi Mask 12/27/19 19:37 95 Venturi Mask 14.0 55 12/27/19 19:00 81 21 123/41 (68) 93 12/27/19 18:00 81 21 118/28 (58) 94 12/27/19 17:00 97.5 100 21 125/49 (74) 94 12/27/19 16:00 40 12/27/19 16:00 100 12/27/19 16:00 100 21 117/33 (61) 95 12/27/19 16:00 Venturi Mask 12/27/19 15:00 86 21 112/88 (96) 94 12/27/19 14:00 87 21 120/44 (69) 96 12/27/19 13:00 83 20 130/50 (76) 87 Intake and Output 12/27/19 12/28/19 19:00 07:00 Intake Total 645 ml 770 ml Output Total 1875 ml 2280 ml Balance -1230 ml -1510 ml Free Water 150 ml 60 ml IV Total 60 ml 50 ml Tube Feeding 435 ml 660 ml Output Urine Total 1875 ml 2280 ml Laboratory Tests 12/28/19 08:50: White Blood Count 14.1H, Red Blood Count 3.82L, Hemoglobin 12.3, Hematocrit 38.9 , Mean Corpuscular Volume 102H, Mean Corpuscular Hemoglobin 32.2H, Mean Corpuscular Hemoglobin Concent 31.6L, Red Cell Distribution Width 13.2, Platelet Count 214, Mean Platelet Volume 8.1, Neutrophils (%) (Auto) 81.8H, Lymphocytes (%) (Auto) 10.5L, Monocytes (%) (Auto) 7.3, Eosinophils (%) (Auto) 0.0, Basophils (%) (Auto) 0.4, Sodium Level 144, Potassium Level 3.6, Chloride Level 96L, Carbon Dioxide Level > 45*H, Blood Urea Nitrogen 35H, Creatinine 0.9 , Estimat Glomerular Filtration Rate > 60, Glucose Level 159H, Calcium Level 8.6 , Phosphorus Level 3.5, Magnesium Level 1.9, Total Bilirubin 0.7, Direct Bilirubin 0.2, Aspartate Amino Transf (AST/SGOT) 28, Alanine Aminotransferase ( ALT/SGPT) 44, Alkaline Phosphatase 41L, Total Protein 7.2, Albumin 3.4, Valproic Acid (Depakene) Level 12L 12/28/19 10:35: Arterial Blood pH 7.428, Arterial Blood Partial Pressure CO2 80.2*H, Arterial Blood Partial Pressure O2 65.9L, Arterial Blood HCO3 51.8*H, Arterial Blood Oxygen Saturation 91.7L, Arterial Blood Base Excess 23.2*H, Raphael Test Positive Height (Feet): 5 Height (Inches): 7.00 Weight (Pounds): 210 General Appearance: mild distress EENT: normal ENT inspection Neck: supple Cardiovascular: normal rate Respiratory/Chest: decreased breath sounds Abdomen: normal bowel sounds, non tender, soft Extremities: non-tender Kirk Vidal MD Dec 28, 2019 12:15
[2019-12-28] MEDS: acetaZOLAMIDE 500mg Inj IVP SCH ×3 (12:58→23:09)
--- NOTE | 2019-12-28 13:31 | Pulmonology Progress Note ---
Subjective ROS Limited/Unobtainable: No Interval Events: Extubated 12/21/19; did well on VENTIMASK; now back on BiPAp Constitutional: Reports: no symptoms HEENT: Repors: no symptoms Respiratory: Reports: no symptoms Cardiovascular: Reports: no symptoms Gastrointestinal/Abdominal: Reports: no symptoms Genitourinary: Reports: no symptoms Allergies: Coded Allergies: LITHIUM (Verified Allergy, Unknown, 02/07/19) All Systems: reviewed and negative except above Objective Last 24 Hour Vital Signs Date Time Temp Pulse Resp B/P (MAP) Pulse Ox O2 Delivery O2 Flow Rate FiO2 12/28/19 12:00 60 12/28/19 12:00 Bi-pap 12/28/19 12:00 98.9 75 11 109/43 (65) 95 12/28/19 12:00 71 12/28/19 11:30 74 15 104/42 (62) 93 12/28/19 11:00 82 22 102/38 (59) 99 12/28/19 11:00 60 12/28/19 10:49 83 15 97 45 12/28/19 10:30 87 22 119/47 (71) 90 12/28/19 10:00 83 22 116/39 (64) 93 12/28/19 09:51 88 22 117/42 (67) 93 12/28/19 09:48 89 22 82/27 (45) 94 12/28/19 09:23 93 26 92/21 (44) 96 12/28/19 09:00 88 22 95 12/28/19 08:15 95 Venturi Mask 14.0 55 12/28/19 08:00 40 12/28/19 08:00 Venturi Mask 12/28/19 08:00 79 12/28/19 08:00 98.8 88 24 126/44 (71) 97 12/28/19 07:00 84 27 123/34 (63) 96 12/28/19 06:00 89 27 128/47 (74) 96 12/28/19 05:00 82 27 123/46 (71) 94 12/28/19 04:00 98.4 90 23 118/46 (70) 95 12/28/19 04:00 40 12/28/19 04:00 Venturi Mask 12/28/19 04:00 78 12/28/19 03:00 80 18 123/47 (72) 94 12/28/19 02:00 103 155/64 (94) 97 12/28/19 01:00 90 21 126/51 (76) 98 12/28/19 00:00 Venturi Mask 12/28/19 00:00 76 12/28/19 00:00 40 12/28/19 00:00 98.2 78 20 114/45 (68) 93 12/27/19 23:00 79 20 115/39 (64) 97 12/27/19 22:00 82 20 113/46 (68) 93 12/27/19 21:00 82 22 115/42 (66) 95 12/27/19 20:00 40 12/27/19 20:00 90 12/27/19 20:00 98.0 84 30 123/45 (71) 96 12/27/19 20:00 Venturi Mask 12/27/19 19:37 95 Venturi Mask 14.0 55 12/27/19 19:00 81 21 123/41 (68) 93 12/27/19 18:00 81 21 118/28 (58) 94 12/27/19 17:00 97.5 100 21 125/49 (74) 94 12/27/19 16:00 40 12/27/19 16:00 100 12/27/19 16:00 100 21 117/33 (61) 95 12/27/19 16:00 Venturi Mask 12/27/19 15:00 86 21 112/88 (96) 94 12/27/19 14:00 87 21 120/44 (69) 96 Intake and Output 12/27/19 12/28/19 19:00 07:00 Intake Total 645 ml 770 ml Output Total 1875 ml 2280 ml Balance -1230 ml -1510 ml Free Water 150 ml 60 ml IV Total 60 ml 50 ml Tube Feeding 435 ml 660 ml Output Urine Total 1875 ml 2280 ml General Appearance: no acute distress Respiratory: chest wall non-tender, lungs clear Cardiovascular: normal peripheral pulses, normal rate Abdomen: normal bowel sounds Laboratory Tests 12/28/19 08:50: White Blood Count 14.1H, Red Blood Count 3.82L, Hemoglobin 12.3, Hematocrit 38.9 , Mean Corpuscular Volume 102H, Mean Corpuscular Hemoglobin 32.2H, Mean Corpuscular Hemoglobin Concent 31.6L, Red Cell Distribution Width 13.2, Platelet Count 214, Mean Platelet Volume 8.1, Neutrophils (%) (Auto) 81.8H, Lymphocytes (%) (Auto) 10.5L, Monocytes (%) (Auto) 7.3, Eosinophils (%) (Auto) 0.0, Basophils (%) (Auto) 0.4, Sodium Level 144, Potassium Level 3.6, Chloride Level 96L, Carbon Dioxide Level > 45*H, Blood Urea Nitrogen 35H, Creatinine 0.9 , Estimat Glomerular Filtration Rate > 60, Glucose Level 159H, Calcium Level 8.6 , Phosphorus Level 3.5, Magnesium Level 1.9, Total Bilirubin 0.7, Direct Bilirubin 0.2, Aspartate Amino Transf (AST/SGOT) 28, Alanine Aminotransferase ( ALT/SGPT) 44, Alkaline Phosphatase 41L, Total Protein 7.2, Albumin 3.4, Valproic Acid (Depakene) Level 12L 12/28/19 10:35: Arterial Blood pH 7.428, Arterial Blood Partial Pressure CO2 80.2*H, Arterial Blood Partial Pressure O2 65.9L, Arterial Blood HCO3 51.8*H, Arterial Blood Oxygen Saturation 91.7L, Arterial Blood Base Excess 23.2*H, Raphael Test Positive Current Medications Medications (Trade) Dose Ordered Sig/Angie Route PRN Reason Start Time Stop Time Status Last Admin Dose Admin Acetaminophen (Tylenol) 650 mg Q6H PRN ORAL Mild Pain (Pain Scale 1-3) 12/12/19 12:30 01/11/20 12:29 12/22/19 20:56 Acetaminophen (Tylenol) 1,000 mg Q6H PRN ORAL MODERATE PAIN 12/12/19 12:30 01/11/20 12:29 Acetazolamide (Diamox 500mg Inj) 250 mg EVERY 6 HOURS IVP 12/28/19 12:00 12/30/19 06:01 12/28/19 12:58 Amantadine HCl (Symmetrel) 100 mg TWICE A DAY ORAL 12/22/19 18:00 01/11/20 08:59 12/28/19 09:28 Aspirin (ASA) 324 mg DAILY ORAL 12/23/19 09:00 02/04/20 08:59 12/28/19 09:30 Atorvastatin Calcium (Lipitor) 10 mg BEDTIME ORAL 12/22/19 21:00 03/11/20 20:59 12/27/19 20:48 Calcium Carbonate (Os-Octavio) 500 mg THREE TIMES A DAY ORAL 12/22/19 13:00 03/20/20 17:59 12/28/19 13:02 Clonidine HCl (Catapres Tab) 0.1 mg Q6H PRN GT For high BP over 160 systolic 12/15/19 16:30 03/11/20 12:30 12/24/19 01:47 Dextrose (Dextrose 50%) 25 ml Q30M PRN IV Hypoglycemia 12/13/19 07:15 03/12/20 07:14 Dextrose (Dextrose 50%) 50 ml Q30M PRN IV Hypoglycemia 12/13/19 07:15 03/12/20 07:14 Divalproex Sodium (Depakote) 250 mg EVERY 12 HOURS ORAL 12/22/19 21:00 01/12/20 20:59 12/28/19 09:29 Docusate Sodium (Colace) 100 mg TWICE A DAY ORAL 12/22/19 18:00 01/14/20 17:59 12/28/19 09:29 Fentanyl Citrate 250 ml @ 0 mls/hr Q24H IV 12/18/19 20:53 03/17/20 20:52 12/19/19 20:56 Furosemide 100 mg/ Dextrose 100 ml @ 5 mls/hr Q20H IV 12/26/19 11:00 01/25/20 10:59 12/28/19 03:44 Insulin Aspart (NovoLOG) EVERY 6 HOURS SUBQ 12/13/19 12:00 03/12/20 11:59 12/28/19 13:02 Lactulose (Cephulac) 20 gm BID ORAL 12/25/19 09:00 01/24/20 08:59 12/28/19 09:28 Levothyroxine Sodium (Synthroid) 100 mcg DAILY IV 12/27/19 09:00 01/11/20 09:29 12/28/19 09:28 Methylprednisolone Sodium Succinate (Solu-MEDROL) 20 mg EVERY 6 HOURS IVP 12/22/19 12:00 03/18/20 11:59 12/28/19 12:59 Nitroglycerin (Ntg) 0.4 mg Q5MIN X 3 DOSES PRN SL CHEST PAIN 12/12/19 12:00 01/10/20 21:44 Pantoprazole (Protonix) 40 mg EVERY 12 HOURS IVP 12/14/19 09:00 01/13/20 08:59 12/28/19 09:28 Phosphorus (Phospha 250 Neutral) 250 mg THREE TIMES A DAY ORAL 12/22/19 13:00 01/14/20 08:59 12/28/19 13:02 Polyethylene Glycol (Miralax) 17 gm BEDTIME ORAL 12/22/19 21:00 01/18/20 20:59 12/27/19 20:48 Polyethylene Glycol (Miralax) 17 gm DAILYPRN PRN ORAL Constipation 12/24/19 19:00 01/23/20 18:59 Quetiapine Fumarate (SEROqueL) 50 mg Q12HR ORAL 12/22/19 21:00 02/05/20 20:59 12/28/19 09:29 Assessment/Plan Assessment/Plan IMPRESSION: 1. Respiratory failure. Now on BiPAP 2. Has healthcare-associated pneumonia; is negative for COVID-19. 3. Psych disorder. 4. Obesity. 5. Hypertension. 6. Hypernatremia DISCUSSION: Continue broad spectrum antibiotics. Off olanzepine Has negative COVID-19 swab. On Seroquel Will continue ventimask and use BiPAp as backup On Lasix gtt; ABG adequate Will add Diamox Emerita Fan Omar Syed MD Dec 28, 2019 13:31
--- NOTE | 2019-12-28 14:25 | Cardiac Electrophysiology PN ---
Assessment/Plan Assessment/Plan 1. Recurrent respiratory failure with BNP of more than 19,000. Echo showed normal EF. On Lasix 5mg/hr, on BIPAP again 2. Bradycardia requiring atropine due to respiratory failure as was on T piece at the time. 3. Bilateral UE edema. Venous Duplex was negative on 12/12/19. 4. History of Parkinson disease. 5. Hyperlipidemia. YOSELYN RN Subjective Subjective On BIPAP now with frequent Trigeminal PVCs and Lasix drip at 5 mg/hr Objective Last 24 Hour Vital Signs Date Time Temp Pulse Resp B/P (MAP) Pulse Ox O2 Delivery O2 Flow Rate FiO2 12/28/19 13:30 79 15 110/43 (65) 12/28/19 13:00 79 11 110/38 (62) 97 12/28/19 12:00 60 12/28/19 12:00 Bi-pap 12/28/19 12:00 98.9 75 11 109/43 (65) 95 12/28/19 12:00 71 12/28/19 11:30 74 15 104/42 (62) 93 12/28/19 11:00 82 22 102/38 (59) 99 12/28/19 11:00 60 12/28/19 10:49 83 15 97 45 12/28/19 10:30 87 22 119/47 (71) 90 12/28/19 10:00 83 22 116/39 (64) 93 12/28/19 09:51 88 22 117/42 (67) 93 12/28/19 09:48 89 22 82/27 (45) 94 12/28/19 09:23 93 26 92/21 (44) 96 12/28/19 09:00 88 22 95 12/28/19 08:15 95 Venturi Mask 14.0 55 12/28/19 08:00 40 12/28/19 08:00 Venturi Mask 12/28/19 08:00 79 12/28/19 08:00 98.8 88 24 126/44 (71) 97 12/28/19 07:00 84 27 123/34 (63) 96 12/28/19 06:00 89 27 128/47 (74) 96 12/28/19 05:00 82 27 123/46 (71) 94 12/28/19 04:00 98.4 90 23 118/46 (70) 95 12/28/19 04:00 40 12/28/19 04:00 Venturi Mask 12/28/19 04:00 78 12/28/19 03:00 80 18 123/47 (72) 94 12/28/19 02:00 103 155/64 (94) 97 12/28/19 01:00 90 21 126/51 (76) 98 12/28/19 00:00 Venturi Mask 12/28/19 00:00 76 12/28/19 00:00 40 12/28/19 00:00 98.2 78 20 114/45 (68) 93 12/27/19 23:00 79 20 115/39 (64) 97 12/27/19 22:00 82 20 113/46 (68) 93 12/27/19 21:00 82 22 115/42 (66) 95 12/27/19 20:00 40 12/27/19 20:00 90 12/27/19 20:00 98.0 84 30 123/45 (71) 96 12/27/19 20:00 Venturi Mask 12/27/19 19:37 95 Venturi Mask 14.0 55 12/27/19 19:00 81 21 123/41 (68) 93 12/27/19 18:00 81 21 118/28 (58) 94 12/27/19 17:00 97.5 100 21 125/49 (74) 94 12/27/19 16:00 40 12/27/19 16:00 100 12/27/19 16:00 100 21 117/33 (61) 95 12/27/19 16:00 Venturi Mask 12/27/19 15:00 86 21 112/88 (96) 94 Intake and Output 12/27/19 12/28/19 19:00 07:00 Intake Total 645 ml 775 ml Output Total 1875 ml 2280 ml Balance -1230 ml -1505 ml Free Water 150 ml 60 ml IV Total 60 ml 55 ml Tube Feeding 435 ml 660 ml Output Urine Total 1875 ml 2280 ml Laboratory Tests Test 12/28/19 08:50 12/28/19 10:35 White Blood Count 14.1 K/UL (4.8-10.8) H Red Blood Count 3.82 M/UL (4.20-5.40) L Hemoglobin 12.3 G/DL (12.0-16.0) Hematocrit 38.9 % (37.0-47.0) Mean Corpuscular Volume 102 FL (80-99) H Mean Corpuscular Hemoglobin 32.2 PG (27.0-31.0) H Mean Corpuscular Hemoglobin Concent 31.6 G/DL (32.0-36.0) L Red Cell Distribution Width 13.2 % (11.6-14.8) Platelet Count 214 K/UL (150-450) Mean Platelet Volume 8.1 FL (6.5-10.1) Neutrophils (%) (Auto) 81.8 % (45.0-75.0) H Lymphocytes (%) (Auto) 10.5 % (20.0-45.0) L Monocytes (%) (Auto) 7.3 % (1.0-10.0) Eosinophils (%) (Auto) 0.0 % (0.0-3.0) Basophils (%) (Auto) 0.4 % (0.0-2.0) Sodium Level 144 MMOL/L (136-145) Potassium Level 3.6 MMOL/L (3.5-5.1) Chloride Level 96 MMOL/L (98-107) L Carbon Dioxide Level > 45 MMOL/L (21-32) *H Blood Urea Nitrogen 35 mg/dL (7-18) H Creatinine 0.9 MG/DL (0.55-1.30) Estimat Glomerular Filtration Rate > 60 mL/min (>60) Glucose Level 159 MG/DL (74-106) H Calcium Level 8.6 MG/DL (8.5-10.1) Phosphorus Level 3.5 MG/DL (2.5-4.9) Magnesium Level 1.9 MG/DL (1.8-2.4) Total Bilirubin 0.7 MG/DL (0.2-1.0) Direct Bilirubin 0.2 MG/DL (0.0-0.3) Aspartate Amino Transf (AST/SGOT) 28 U/L (15-37) Alanine Aminotransferase (ALT/SGPT) 44 U/L (12-78) Alkaline Phosphatase 41 U/L (46-116) L Total Protein 7.2 G/DL (6.4-8.2) Albumin 3.4 G/DL (3.4-5.0) Valproic Acid (Depakene) Level 12 MCG/ML (50-100) L Arterial Blood pH 7.428 (7.350-7.450) Arterial Blood Partial Pressure CO2 80.2 mmHg (35.0-45.0) *H Arterial Blood Partial Pressure O2 65.9 mmHg (75.0-100.0) L Arterial Blood HCO3 51.8 mmol/L (22.0-26.0) *H Arterial Blood Oxygen Saturation 91.7 % (95-100) L Arterial Blood Base Excess 23.2 (-2-2) *H Raphael Test Positive Objective HEAD AND NECK: No JVD.BIPAP is on LUNGS: Coarse rhonchi. CARDIOVASCULAR: Regular S1 and S2 and tachycardic. ABDOMEN: Soft. EXTREMITIES: Bilateral Arm edema. Cameron Davies MD Dec 28, 2019 14:25
--- NOTE | 2019-12-28 15:00 | NUR ---
NURSE NOTES: PT CLEANED, REPOSITIONED. ORAL CARE PROVIDED. AFEBRILE. RESTRAINTS IN PLACE, PT CONTINUES TO PULL AT TUBINGS.
--- NOTE | 2019-12-28 16:47 | NUR ---
CASE MANAGEMENT: REVIEW 12/28/2019 SI:A/C RESP FAILURE W/ HYPOXIA VS: T 98.9 hr 78 rr 25 b/p 111/39 sats 98% on bipap fio2 60 LABS: WBC 14.1 CL 96 CO2 45 BUN 35 GLU 159 ALP 41 ABGs PCO2 80.2 PO2 65.9 HCO3 51.8 O2 SAT 91.7 BE 23.2 IS:LASIX IV @ 5 ML/HR INSULIN ASPART SUBQ Q6H SOLU MEDROL IV Q6H DEPAKOTE PO Q12H LIPITOR PO QHS CEPHULAC PO BID ASA PO QD PHOS PO TID ICU
--- NOTE | 2019-12-28 18:00 | NUR ---
NURSE NOTES: PT IN NO DISTRESS.
--- NOTE | 2019-12-28 19:22 | NUR ---
HAND-OFF: Report given to NOREEN Osborne PT IN NO ACUTE DISTRESS.
--- NOTE | 2019-12-28 19:25 | NUR ---
NURSE NOTES: Received report from Gilberto ROJO.
--- NOTE | 2019-12-28 20:00 | NUR ---
NURSE NOTES: Patient in bed resting, no moaning no facial grimaces. Patient on BIPAP 28/11 fi02 60% satting 98-100%. HOB elevated. No s/s of acute distress noted. On NGT feeding running Vital AF 1.2 at 55cc/hr no residual. no s/s of hypo/hyperglycemia. on P200 mattress for wound management. SCD's on bilateral leg. Ace draining. bilateral wrist restraint check. patient with dependent edema on bilateral upper extremities but getting better on Lasix drip at 5cc/hr. IV site intact no s/s of infiltration. contact isolation maintained and observed. will continue plan of care.
[2019-12-28] MEDS: Miralax 17gm pkt ORAL SCH (20:27)
[2019-12-28] MEDS: fentaNYL 2500mcg/NS 250ml 250 ML IV SCH (20:53)
--- NOTE | 2019-12-28 21:07 | General Progress Note ---
Assessment/Plan Problem List: (1) Dyspnea ICD Codes: R06.00 - Dyspnea, unspecified SNOMED: 258699339 (2) Hypothyroidism ICD Codes: E03.9 - Hypothyroidism, unspecified SNOMED: 60996376 (3) Obese ICD Codes: E66.9 - Obesity, unspecified SNOMED: 725640341, 808066477 (4) Psychosis ICD Codes: F29 - Unspecified psychosis not due to a substance or known physiological condition SNOMED: 80576839 (5) Respiratory failure ICD Codes: J96.90 - Respiratory failure, unspecified, unspecified whether with hypoxia or hypercapnia SNOMED: 787376839 (6) Respiratory distress ICD Codes: R06.03 - Acute respiratory distress SNOMED: 866121056 (7) Dyspnea ICD Codes: R06.00 - Dyspnea, unspecified SNOMED: 908534169 (8) Pneumonia ICD Codes: J18.9 - Pneumonia, unspecified organism SNOMED: 143654291 (9) Acute and chronic respiratory failure ICD Codes: J96.20 - Acute and chronic respiratory failure, unspecified whether with hypoxia or hypercapnia SNOMED: 91406664 (10) Diabetes mellitus type 2 in nonobese ICD Codes: E11.9 - Type 2 diabetes mellitus without complications SNOMED: 570376207 (11) CHF (congestive heart failure) ICD Codes: I50.9 - Heart failure, unspecified SNOMED: 88491204 Qualifiers: Qualified Codes: I50.9 - Heart failure, unspecified (12) Hypoxia ICD Codes: R09.02 - Hypoxemia SNOMED: 085432243 (13) Elevated d-dimer ICD Codes: R79.89 - Other specified abnormal findings of blood chemistry SNOMED: 683259066 (14) Schizophrenia ICD Codes: F20.9 - Schizophrenia, unspecified SNOMED: 94348651 (15) Parkinson disease ICD Codes: G20 - Parkinson's disease SNOMED: 36192684 Status: progressing, unchanged Assessment/Plan: on lasix drip fluid overload lethargic on bipap check lytes obesity covid negative pleural effusion Subjective ROS Limited/Unobtainable: Yes Allergies: Coded Allergies: LITHIUM (Verified Allergy, Unknown, 02/07/19) Objective Last 24 Hour Vital Signs Date Time Temp Pulse Resp B/P (MAP) Pulse Ox O2 Delivery O2 Flow Rate FiO2 12/28/19 20:00 60 7/17/20 20:00 Bi-pap 12/28/19 20:00 98.3 72 17 105/42 (63) 97 12/28/19 19:00 71 17 109/44 (65) 99 12/28/19 18:59 86 14 98 45 12/28/19 18:58 98 Bi-Pap 45 12/28/19 18:00 72 16 112/44 (66) 94 12/28/19 17:30 68 21 108/37 (60) 95 12/28/19 17:00 79 19 109/38 (61) 97 12/28/19 16:00 98.9 78 25 111/39 (63) 98 12/28/19 16:00 Bi-pap 12/28/19 16:00 82 12/28/19 16:00 60 12/28/19 15:30 78 20 93/35 (54) 97 12/28/19 15:00 82 21 122/43 (69) 12/28/19 14:55 86 14 98 45 12/28/19 14:00 80 15 105/45 (65) 12/28/19 13:30 79 15 110/43 (65) 12/28/19 13:00 79 11 110/38 (62) 97 12/28/19 12:00 60 12/28/19 12:00 Bi-pap 12/28/19 12:00 98.9 75 11 109/43 (65) 95 12/28/19 12:00 71 12/28/19 11:30 74 15 104/42 (62) 93 12/28/19 11:00 82 22 102/38 (59) 99 12/28/19 11:00 60 12/28/19 10:49 83 15 97 45 12/28/19 10:30 87 22 119/47 (71) 90 12/28/19 10:00 83 22 116/39 (64) 93 12/28/19 09:51 88 22 117/42 (67) 93 12/28/19 09:48 89 22 82/27 (45) 94 12/28/19 09:23 93 26 92/21 (44) 96 12/28/19 09:00 88 22 95 12/28/19 08:15 95 Venturi Mask 14.0 55 12/28/19 08:00 40 12/28/19 08:00 Venturi Mask 12/28/19 08:00 79 12/28/19 08:00 98.8 88 24 126/44 (71) 97 12/28/19 07:00 84 27 123/34 (63) 96 12/28/19 06:00 89 27 128/47 (74) 96 12/28/19 05:00 82 27 123/46 (71) 94 12/28/19 04:00 98.4 90 23 118/46 (70) 95 12/28/19 04:00 40 12/28/19 04:00 Venturi Mask 12/28/19 04:00 78 12/28/19 03:00 80 18 123/47 (72) 94 12/28/19 02:00 103 155/64 (94) 97 12/28/19 01:00 90 21 126/51 (76) 98 12/28/19 00:00 Venturi Mask 12/28/19 00:00 76 12/28/19 00:00 40 12/28/19 00:00 98.2 78 20 114/45 (68) 93 12/27/19 23:00 79 20 115/39 (64) 97 12/27/19 22:00 82 20 113/46 (68) 93 Intake and Output 12/27/19 12/28/19 19:00 07:00 Intake Total 645 ml 775 ml Output Total 1875 ml 2280 ml Balance -1230 ml -1505 ml Free Water 150 ml 60 ml IV Total 60 ml 55 ml Tube Feeding 435 ml 660 ml Output Urine Total 1875 ml 2280 ml Laboratory Tests 12/28/19 08:50: White Blood Count 14.1H, Red Blood Count 3.82L, Hemoglobin 12.3, Hematocrit 38.9 , Mean Corpuscular Volume 102H, Mean Corpuscular Hemoglobin 32.2H, Mean Corpuscular Hemoglobin Concent 31.6L, Red Cell Distribution Width 13.2, Platelet Count 214, Mean Platelet Volume 8.1, Neutrophils (%) (Auto) 81.8H, Lymphocytes (%) (Auto) 10.5L, Monocytes (%) (Auto) 7.3, Eosinophils (%) (Auto) 0.0, Basophils (%) (Auto) 0.4, Sodium Level 144, Potassium Level 3.6, Chloride Level 96L, Carbon Dioxide Level > 45*H, Blood Urea Nitrogen 35H, Creatinine 0.9 , Estimat Glomerular Filtration Rate > 60, Glucose Level 159H, Calcium Level 8.6 , Phosphorus Level 3.5, Magnesium Level 1.9, Total Bilirubin 0.7, Direct Bilirubin 0.2, Aspartate Amino Transf (AST/SGOT) 28, Alanine Aminotransferase ( ALT/SGPT) 44, Alkaline Phosphatase 41L, Total Protein 7.2, Albumin 3.4, Valproic Acid (Depakene) Level 12L 12/28/19 10:35: Arterial Blood pH 7.428, Arterial Blood Partial Pressure CO2 80.2*H, Arterial Blood Partial Pressure O2 65.9L, Arterial Blood HCO3 51.8*H, Arterial Blood Oxygen Saturation 91.7L, Arterial Blood Base Excess 23.2*H, Raphael Test Positive Height (Feet): 5 Height (Inches): 7.00 Weight (Pounds): 210 Dani Perera MD Dec 28, 2019 21:07
--- NOTE | 2019-12-28 22:00 | NUR ---
NURSE NOTES: Turned and repositioned patient in bed. patient with episodes of sliding down from bed, pulled patient up in bed. Encouraged patient to verbalize need fears and feelings to staff. Bilateral extremities elevated with pillows. frequent visual checks continued.
--- NOTE | 2019-12-28 23:22 | NUR ---
NURSE NOTES: Blood glucose 171mg/dl no s/s of hypo/hyperglycemia. NovoLog insulin 3 units per sliding scale given.
[2019-12-29] VITALS (24 sets, daily range): BP systolic 104–135; BP diastolic 24–62
--- NOTE | 2019-12-29 01:30 | NUR ---
NURSE NOTES: Patient in bed sleeping comfortably. no s/s of acute distress noted. HOB elevated. oral care provided. Ace draining with 15-300cc/hr of pale urine. continue on Lasix drip at 5ml/hr. Contact isolation maintained nad observed. call light within easy reach. will continue plan of care. Addendum: 12/29/19 at 0605 by NOREEN BATES RN Ace draining with 150-300cc
--- NOTE | 2019-12-29 03:30 | NUR ---
NURSE NOTES: Bed bath given tolerated well.
[2019-12-29 05:06] LABS: BASOPHILS % (AUTO) 0.3 % (0.0-2.0); EOSINOPHILS % (AUTO) 0.2 % (0.0-3.0); HEMATOCRIT 32.8 % (37.0-47.0); HEMOGLOBIN 10.4 G/DL (12.0-16.0); LYMPHOCYTES % (AUTO) 9.4 % (20.0-45.0); MEAN CORPUSCULAR VOLUME 102 FL (80-99); MONOCYTES % (AUTO) 5.9 % (1.0-10.0); NEUTROPHILS % (AUTO) 84.2 % (45.0-75.0); PLATELET COUNT 185 K/UL (150-450); RED BLOOD COUNT 3.23 M/UL (4.20-5.40); RED CELL DISTRIBUTION WIDTH 12.9 % (11.6-14.8); WHITE BLOOD COUNT 9.1 K/UL (4.8-10.8)
--- NOTE | 2019-12-29 05:30 | NUR ---
NURSE NOTES: Blood glucose 187mg/dl no s/s of hypo/hyperglycemia. NovoLog insulin 4 units per sliding scale given.Patient in bed sleeping comfortably. no s/s of acute distress noted. HOB elevated. oral care provided. Ace draining with 150-300cc/hr of pale urine. continue on Lasix drip at 5ml/hr. Contact isolation maintained and observed. call light within easy reach. will continue plan of care.
[2019-12-29] MEDS: acetaZOLAMIDE 500mg Inj IVP SCH ×3 (05:33→18:38)
[2019-12-29] MEDS: Solu-MEDROL 40mg Inj IVP SCH ×3 (05:33→18:38)
[2019-12-29] MEDS: NovoLOG Insulin Flexpen SUBQ SCH ×3 (05:33→18:40)
[2019-12-29 05:34] LABS: ALANINE AMINOTRANSFERASE 30 U/L (12-78); ALBUMIN 2.9 G/DL (3.4-5.0); ALBUMIN/GLOBULIN RATIO 0.8 (1.0-2.7); ALKALINE PHOSPHATASE 39 U/L (46-116); ANION GAP 0 mmol/L (5-15); ASPARTATE AMINO TRANSFERASE 13 U/L (15-37); BILIRUBIN,TOTAL 0.5 MG/DL (0.2-1.0); BLOOD UREA NITROGEN 39 mg/dL (7-18); CALCIUM 8.3 MG/DL (8.5-10.1); CHLORIDE 98 MMOL/L (98-107); CREATININE 0.9 MG/DL (0.55-1.30); PHOSPHORUS 3.5 MG/DL (2.5-4.9); POTASSIUM 3.2 MMOL/L (3.5-5.1); SODIUM 142 MMOL/L (136-145)
[2019-12-29 05:37] LABS: CARBON DIOXIDE 44 MMOL/L (21-32)
--- NOTE | 2019-12-29 07:23 | NUR ---
HAND-OFF: Report given to Marylou ROJO.
--- NOTE | 2019-12-29 08:00 | NUR ---
NURSE NOTES: Received change of shift report from Natalie ROJO. Pt is asleep, awakens to voice/touch, follows commands, on BIPAP with settings 18/6 FIO2 45% at 100% O2Sat with bilateral rales/rhonchi on auscultation. NSR on rn coronary care unit, HR 80. Temp 98.3F axillary. Left nare NGT with feeding Vital AF 1.2 infusing at goal rate of 55ml/hour with no residual. Abdomen is large, round, soft, nontender to touch with active bowel sounds. Ace catheter is present, draining clear/yellow urine. Pt has two peripheral IV access, right hand #22G and left FA#20G, patent/intact, currently on Lasix drip infusing at 5mg/hr. Skin alteration noted on sacral area, covered with optifoam dressing. Pt is on pressure release mattress. Bilateral SCDs on lower extremities for DVT prophylaxis. HOB at 30degrees, bed locked, in lowest position, three side rails up and alarm on. Bilateral soft wrist restraints are in place for pt safety, as pt repeatedly reaches to remove BiPAP off face. Skin integrity at restraint site remains within normal limits. Will continue with plan of care.
[2019-12-29] MEDS: Aspirin Baby 81mg ORAL SCH (09:00)
[2019-12-29] MEDS: Pantoprazole Inj IVP SCH ×2 (09:01→21:22)
[2019-12-29] MEDS: Os-Cal (Oyster Shell) 500mg tab ORAL SCH ×3 (09:01→18:38)
[2019-12-29] MEDS: Amantadine 100mg cap ORAL SCH ×2 (09:01→18:38)
[2019-12-29] MEDS: Phospha 250 Neutral tab ORAL SCH ×3 (09:01→18:38)
[2019-12-29] MEDS: Lactulose 20gm/30ml UDC ORAL SCH ×2 (09:01→18:38)
[2019-12-29] MEDS: Docusate 100mg cap ORAL SCH ×2 (09:01→18:00)
--- NOTE | 2019-12-29 10:00 | NUR ---
NURSE NOTES: AM meds were administered. Pt was seen by Dr. Myers, order received to DC Lasix drip, place pt on Venturi mask at current FIO2 45% or lower as tolerated and repeat ABG blood draw post 1 hour. Orders were processed. RT notified. Pt was repositioned for comfort. VS remain stable.
[2019-12-29] MEDS ORDERED: Sodium Chloride for KCL Premix X 4hrs IV SCH (10:30)
--- NOTE | 2019-12-29 11:00 | NUR ---
NURSE NOTES: Pt is being infused KCL 10meq x4 bags to replace low K level=3.[address] Myers. Javier gallegos has been DC'd per MD order.
--- NOTE | 2019-12-29 12:00 | NUR ---
NURSE NOTES: ABGs were drawn post 1 hour pt being switched to Venturi mask 45% FIO2. Dr. Myers's office was contacted and detailed voicemail was left regarding ABG results. Pt currently remains on Venturi mask with 100% O2Sat and no respiratory distress. Awaiting for call back from .
--- NOTE | 2019-12-29 13:02 | Nephrology Progress Note ---
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 Respiratory distress most likely secondary to pulmonary edema and or COPD exacerbation. Hyponatremia. Obese. Hypothyroidism. Elevated d-dimer. Elevated liver enzymes Plan December 28: Lab reviewed: CO2 remains high: On BiPAP. Continue per pulmonary. Stable from renal standpoint of view. December 27: Lab reviewed. Continues to retain CO2. On Venturi mask. Continue per pulmonary. Stable from renal standpoint of view. December 26: Lab reviewed. ABG reviewed. Patient retaining CO2. Remains on BiPAP. Continue per pulmonary. Stable from renal standpoint of view. December 25: Lab reviewed. TSH remains high. On nonrebreathing mask. Renal parameters stable. Synthroid dose increased. IV fluids stopped. December 24: Lab reviewed. Still on BiPAP. Renal parameters stable. December 23: Lab reviewed. Remains on BiPAP. Agitated at times. ABG ordered. Serum sodium improved. December 22: Lab reviewed. On BiPAP. Stable from renal standpoint of view. Will follow serum sodium. December 21: Labs reviewed. On nonrebreather mask. D5W 50 cc an hour started for hypernatremia. Magnesium supplement given. Continue per consultants. December 20: Patient on weaning trial. No labs done today. Discussed with RN. Continue per consultants. December 19: Patient remains intubated. Renal parameters stable. Discussed with RN. Continue per consultants. December 18: Patient self extubated yesterday however was reintubated. Remains stable from renal standpoint of view. Discussed with RN. Discussed with Dr. Myers. December 17: Remains intubated. Remains full code. Failed weaning. Stable from renal standpoint of view. Continue per consultants. Discussed with DARREL [place]. December 16: Remains intubated. Full code. Weaning in process. Stable from renal standpoint of view. December 15: Remains vented. Electrolytes improved. Continue per consultants. December 14: Patient remains in ICU intubated on ventilator. Potassium low. Phosphorus low. Supplements given. Renal parameters are stable. Continue per consultants. December 13: Patient remains in ICU intubated on ventilator. Discussed with RN. Labs reviewed. Creatinine 1.3. Potassium supplements given. Mag sulfate IV 2 g given. Continue per consultants. December 12: Patient in ICU. Intubated on ventilator. Discussed with RN. Labs reviewed. Potassium supplement given. Continue per consultants. Arterial blood gas indicative of CO2 retention. Patient on the way to ICU for intubation. Continue per pulmonary management. Pulmonary support, Check 2D echocardiogram. Previous 2D echo had a 50% ejection fraction. Keep blood sugar and blood pressure in check. Thyroid panel. Monitor electrolytes and renal parameters. Afterload reduction. Diuretics Monitor serum calcium, supplements via NG tube. Per orders. Subjective ROS Limited/Unobtainable: Yes Objective Objective Last 24 Hour Vital Signs Date Time Temp Pulse Resp B/P (MAP) Pulse Ox O2 Delivery O2 Flow Rate FiO2 12/29/19 12:34 97 12/29/19 12:00 82 17 130/56 (80) 99 12/29/19 11:00 79 17 111/53 (72) 100 12/29/19 10:00 71 10 106/41 (62) 100 12/29/19 09:00 67 5 111/42 (65) 100 12/29/19 08:00 Bi-pap 12/29/19 08:00 71 12/29/19 08:00 45 12/29/19 08:00 98.3 78 14 135/52 (79) 100 12/29/19 07:00 73 14 100 45 12/29/19 07:00 77 11 121/47 (71) 100 12/29/19 07:00 100 Bi-Pap 45 12/29/19 06:00 77 17 120/47 (71) 98 12/29/19 05:00 72 20 112/41 (64) 97 12/29/19 04:00 Bi-pap 12/29/19 04:00 98.3 69 19 113/41 (65) 98 12/29/19 04:00 68 12/29/19 04:00 45 12/29/19 03:17 74 13 97 45 12/29/19 03:00 70 19 104/31 (55) 97 12/29/19 02:00 70 12 112/45 (67) 99 12/29/19 01:00 69 20 108/42 (64) 98 12/29/19 00:00 Bi-pap 12/29/19 00:00 74 12/29/19 00:00 98.5 68 14 108/43 (64) 100 12/29/19 00:00 45 12/28/19 23:00 65 14 116/42 (66) 98 12/28/19 22:32 68 14 99 45 12/28/19 22:30 69 21 112/44 (66) 99 12/28/19 22:00 66 22 99/40 (59) 99 12/28/19 21:00 75 22 108/43 (64) 99 12/28/19 20:00 60 12/28/19 20:00 Bi-pap 12/28/19 20:00 74 12/28/19 20:00 98.3 72 17 105/42 (63) 97 12/28/19 19:00 71 17 109/44 (65) 99 12/28/19 18:59 86 14 98 45 12/28/19 18:58 98 Bi-Pap 45 12/28/19 18:00 72 16 112/44 (66) 94 12/28/19 17:30 68 21 108/37 (60) 95 12/28/19 17:00 79 19 109/38 (61) 97 12/28/19 16:00 98.9 78 25 111/39 (63) 98 12/28/19 16:00 Bi-pap 12/28/19 16:00 82 12/28/19 16:00 60 12/28/19 15:30 78 20 93/35 (54) 97 12/28/19 15:00 82 21 122/43 (69) 12/28/19 14:55 86 14 98 45 12/28/19 14:00 80 15 105/45 (65) 12/28/19 13:30 79 15 110/43 (65) Intake and Output 12/28/19 12/29/19 19:00 07:00 Intake Total 760 ml 1075.33 ml Output Total 1520 ml 2740 ml Balance -760 ml -1664.67 ml Free Water 300 ml IV Total 60 ml 55.33 ml Tube Feeding 660 ml 660 ml Other 40 ml 60 ml Output Urine Total 1520 ml 2740 ml # Bowel Movements 1 Laboratory Tests 12/29/19 03:20: White Blood Count 9.1, Red Blood Count 3.23L, Hemoglobin 10.4L, Hematocrit 32.8L , Mean Corpuscular Volume 102H, Mean Corpuscular Hemoglobin 32.2H, Mean Corpuscular Hemoglobin Concent 31.7L, Red Cell Distribution Width 12.9, Platelet Count 185, Mean Platelet Volume 7.3, Neutrophils (%) (Auto) 84.2H, Lymphocytes (%) (Auto) 9.4L, Monocytes (%) (Auto) 5.9, Eosinophils (%) (Auto) 0.2, Basophils (%) (Auto) 0.3, Sodium Level 142, Potassium Level 3.2L, Chloride Level 98, Carbon Dioxide Level 44*H, Anion Gap 0L, Blood Urea Nitrogen 39H, Creatinine 0.9, Estimat Glomerular Filtration Rate > 60, Glucose Level 193H, Calcium Level 8.3L, Phosphorus Level 3.5, Magnesium Level 1.9, Total Bilirubin 0.5, Aspartate Amino Transf (AST/SGOT) 13L, Alanine Aminotransferase (ALT/SGPT) 30, Alkaline Phosphatase 39L, C-Reactive Protein, Quantitative 1.8H, Pro-B-Type Natriuretic Peptide 50047Z, Total Protein 6.4, Albumin 2.9L, Globulin 3.5, Albumin/Globulin Ratio 0.8L 12/29/19 05:25: POC Whole Blood Glucose 187H 12/29/19 08:26: Arterial Blood pH 7.453H, Arterial Blood Partial Pressure CO2 66.6*H, Arterial Blood Partial Pressure O2 73.6L, Arterial Blood HCO3 45.6*H, Arterial Blood Oxygen Saturation 94.4L, Arterial Blood Base Excess 18.5*H, Raphael Test Positive 12/29/19 11:16: Arterial Blood pH 7.414, Arterial Blood Partial Pressure CO2 74.3*H, Arterial Blood Partial Pressure O2 94.7, Arterial Blood HCO3 46.5*H, Arterial Blood Oxygen Saturation 96.4, Arterial Blood Base Excess 18.6*H, Raphael Test Positive Height (Feet): 5 Height (Inches): 7.00 Weight (Pounds): 204 General Appearance: no apparent distress EENT: other - On BiPAP Cardiovascular: tachycardia Respiratory/Chest: decreased breath sounds Abdomen: distended Bryan Ochoa MD Dec 29, 2019 13:02
--- NOTE | 2019-12-29 13:29 | Pulmonology Progress Note ---
Subjective ROS Limited/Unobtainable: Yes Interval Events: Extubated 12/21/19; did well on VENTIMASK; now back on BiPAp Constitutional: Reports: no symptoms HEENT: Repors: no symptoms Respiratory: Reports: no symptoms Cardiovascular: Reports: no symptoms Gastrointestinal/Abdominal: Reports: no symptoms Genitourinary: Reports: no symptoms Allergies: Coded Allergies: LITHIUM (Verified Allergy, Unknown, 02/07/19) All Systems: reviewed and negative except above Objective Last 24 Hour Vital Signs Date Time Temp Pulse Resp B/P (MAP) Pulse Ox O2 Delivery O2 Flow Rate FiO2 12/29/19 13:00 97.7 79 17 120/52 (74) 100 12/29/19 12:34 97 12/29/19 12:00 82 17 130/56 (80) 99 12/29/19 11:00 79 17 111/53 (72) 100 12/29/19 10:00 71 10 106/41 (62) 100 12/29/19 09:00 67 5 111/42 (65) 100 12/29/19 08:00 Bi-pap 12/29/19 08:00 71 12/29/19 08:00 45 12/29/19 08:00 98.3 78 14 135/52 (79) 100 12/29/19 07:00 73 14 100 45 12/29/19 07:00 77 11 121/47 (71) 100 12/29/19 07:00 100 Bi-Pap 45 12/29/19 06:00 77 17 120/47 (71) 98 12/29/19 05:00 72 20 112/41 (64) 97 12/29/19 04:00 Bi-pap 12/29/19 04:00 98.3 69 19 113/41 (65) 98 12/29/19 04:00 68 12/29/19 04:00 45 12/29/19 03:17 74 13 97 45 12/29/19 03:00 70 19 104/31 (55) 97 12/29/19 02:00 70 12 112/45 (67) 99 12/29/19 01:00 69 20 108/42 (64) 98 12/29/19 00:00 Bi-pap 12/29/19 00:00 74 12/29/19 00:00 98.5 68 14 108/43 (64) 100 12/29/19 00:00 45 12/28/19 23:00 65 14 116/42 (66) 98 12/28/19 22:32 68 14 99 45 12/28/19 22:30 69 21 112/44 (66) 99 12/28/19 22:00 66 22 99/40 (59) 99 12/28/19 21:00 75 22 108/43 (64) 99 12/28/19 20:00 60 12/28/19 20:00 Bi-pap 12/28/19 20:00 74 12/28/19 20:00 98.3 72 17 105/42 (63) 97 12/28/19 19:00 71 17 109/44 (65) 99 12/28/19 18:59 86 14 98 45 12/28/19 18:58 98 Bi-Pap 45 12/28/19 18:00 72 16 112/44 (66) 94 12/28/19 17:30 68 21 108/37 (60) 95 12/28/19 17:00 79 19 109/38 (61) 97 12/28/19 16:00 98.9 78 25 111/39 (63) 98 12/28/19 16:00 Bi-pap 12/28/19 16:00 82 12/28/19 16:00 60 12/28/19 15:30 78 20 93/35 (54) 97 12/28/19 15:00 82 21 122/43 (69) 12/28/19 14:55 86 14 98 45 12/28/19 14:00 80 15 105/45 (65) 12/28/19 13:30 79 15 110/43 (65) Intake and Output 12/28/19 12/29/19 19:00 07:00 Intake Total 760 ml 1075.33 ml Output Total 1520 ml 2740 ml Balance -760 ml -1664.67 ml Free Water 300 ml IV Total 60 ml 55.33 ml Tube Feeding 660 ml 660 ml Other 40 ml 60 ml Output Urine Total 1520 ml 2740 ml # Bowel Movements 1 General Appearance: no acute distress Respiratory: chest wall non-tender, lungs clear Cardiovascular: normal peripheral pulses, normal rate Abdomen: normal bowel sounds Laboratory Tests 12/28/19 18:09: POC Whole Blood Glucose [Pending] 12/28/19 23:07: POC Whole Blood Glucose 171H 12/29/19 03:20: White Blood Count 9.1, Red Blood Count 3.23L, Hemoglobin 10.4L, Hematocrit 32.8L , Mean Corpuscular Volume 102H, Mean Corpuscular Hemoglobin 32.2H, Mean Corpuscular Hemoglobin Concent 31.7L, Red Cell Distribution Width 12.9, Platelet Count 185, Mean Platelet Volume 7.3, Neutrophils (%) (Auto) 84.2H, Lymphocytes (%) (Auto) 9.4L, Monocytes (%) (Auto) 5.9, Eosinophils (%) (Auto) 0.2, Basophils (%) (Auto) 0.3, Sodium Level 142, Potassium Level 3.2L, Chloride Level 98, Carbon Dioxide Level 44*H, Anion Gap 0L, Blood Urea Nitrogen 39H, Creatinine 0.9, Estimat Glomerular Filtration Rate > 60, Glucose Level 193H, Calcium Level 8.3L, Phosphorus Level 3.5, Magnesium Level 1.9, Total Bilirubin 0.5, Aspartate Amino Transf (AST/SGOT) 13L, Alanine Aminotransferase (ALT/SGPT) 30, Alkaline Phosphatase 39L, C-Reactive Protein, Quantitative 1.8H, Pro-B-Type Natriuretic Peptide 68193N, Total Protein 6.4, Albumin 2.9L, Globulin 3.5, Albumin/Globulin Ratio 0.8L 12/29/19 05:25: POC Whole Blood Glucose 187H 12/29/19 08:26: Arterial Blood pH 7.453H, Arterial Blood Partial Pressure CO2 66.6*H, Arterial Blood Partial Pressure O2 73.6L, Arterial Blood HCO3 45.6*H, Arterial Blood Oxygen Saturation 94.4L, Arterial Blood Base Excess 18.5*H, Raphael Test Positive 12/29/19 11:16: Arterial Blood pH 7.414, Arterial Blood Partial Pressure CO2 74.3*H, Arterial Blood Partial Pressure O2 94.7, Arterial Blood HCO3 46.5*H, Arterial Blood Oxygen Saturation 96.4, Arterial Blood Base Excess 18.6*H, Raphael Test Positive Current Medications Medications (Trade) Dose Ordered Sig/Angie Route PRN Reason Start Time Stop Time Status Last Admin Dose Admin Acetaminophen (Tylenol) 650 mg Q6H PRN ORAL Mild Pain (Pain Scale 1-3) 12/12/19 12:30 01/11/20 12:29 12/22/19 20:56 Acetaminophen (Tylenol) 1,000 mg Q6H PRN ORAL MODERATE PAIN 12/12/19 12:30 01/11/20 12:29 Acetazolamide (Diamox 500mg Inj) 250 mg EVERY 6 HOURS IVP 12/28/19 12:00 12/30/19 06:01 12/29/19 11:26 Amantadine HCl (Symmetrel) 100 mg TWICE A DAY ORAL 12/22/19 18:00 01/11/20 08:59 12/29/19 09:01 Aspirin (ASA) 324 mg DAILY ORAL 12/23/19 09:00 02/04/20 08:59 12/29/19 09:00 Atorvastatin Calcium (Lipitor) 10 mg BEDTIME ORAL 12/22/19 21:00 03/11/20 20:59 12/28/19 20:27 Calcium Carbonate (Os-Octavio) 500 mg THREE TIMES A DAY ORAL 12/22/19 13:00 03/20/20 17:59 12/29/19 12:52 Clonidine HCl (Catapres Tab) 0.1 mg Q6H PRN GT For high BP over 160 systolic 12/15/19 16:30 03/11/20 12:30 12/24/19 01:47 Dextrose (Dextrose 50%) 25 ml Q30M PRN IV Hypoglycemia 12/13/19 07:15 03/12/20 07:14 Dextrose (Dextrose 50%) 50 ml Q30M PRN IV Hypoglycemia 12/13/19 07:15 03/12/20 07:14 Divalproex Sodium (Depakote) 250 mg EVERY 12 HOURS ORAL 12/22/19 21:00 01/12/20 20:59 12/29/19 09:00 Docusate Sodium (Colace) 100 mg TWICE A DAY ORAL 12/22/19 18:00 01/14/20 17:59 12/29/19 09:01 Fentanyl Citrate 250 ml @ 0 mls/hr Q24H IV 12/18/19 20:53 03/17/20 20:52 12/19/19 20:56 Insulin Aspart (NovoLOG) EVERY 6 HOURS SUBQ 12/13/19 12:00 03/12/20 11:59 12/29/19 05:33 Lactulose (Cephulac) 20 gm BID ORAL 12/25/19 09:00 01/24/20 08:59 12/29/19 09:01 Levothyroxine Sodium (Synthroid) 100 mcg DAILY IV 12/27/19 09:00 01/11/20 09:29 12/29/19 09:03 Methylprednisolone Sodium Succinate (Solu-MEDROL) 20 mg EVERY 6 HOURS IVP 12/22/19 12:00 03/18/20 11:59 12/29/19 11:26 Nitroglycerin (Ntg) 0.4 mg Q5MIN X 3 DOSES PRN SL CHEST PAIN 12/12/19 12:00 01/10/20 21:44 Pantoprazole (Protonix) 40 mg EVERY 12 HOURS IVP 12/14/19 09:00 01/13/20 08:59 12/29/19 09:01 Phosphorus (Phospha 250 Neutral) 250 mg THREE TIMES A DAY ORAL 12/22/19 13:00 01/14/20 08:59 12/29/19 12:52 Polyethylene Glycol (Miralax) 17 gm BEDTIME ORAL 12/22/19 21:00 01/18/20 20:59 12/28/19 20:27 Polyethylene Glycol (Miralax) 17 gm DAILYPRN PRN ORAL Constipation 12/24/19 19:00 01/23/20 18:59 Potassium Chloride 100 ml @ 100 mls/hr Q1HR IVPB 12/29/19 11:00 12/29/19 14:59 12/29/19 12:52 Quetiapine Fumarate (SEROqueL) 50 mg Q12HR ORAL 12/22/19 21:00 02/05/20 20:59 12/29/19 09:01 Sodium Chloride 400 ml @ 100 mls/hr Q4H IV 12/29/19 10:30 12/29/19 14:29 12/29/19 11:28 Assessment/Plan Assessment/Plan IMPRESSION: 1. Respiratory failure. Improved; remains intermittently on BiPPA vs Ventimask 2. Has healthcare-associated pneumonia; is negative for COVID-19. 3. Psych disorder. 4. Obesity. 5. Hypertension. 6. Hypernatremia DISCUSSION: Continue broad spectrum antibiotics. Off olanzepine Has negative COVID-19 swab. On Seroquel Will continue ventimask and use BiPAp as backup Will dc Lasix gtt Continue Diamox for another day Emerita Fan Omar Syed MD Dec 29, 2019 13:29
--- NOTE | 2019-12-29 13:40 | General Progress Note ---
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 - Other specified diabetes mellitus without complications SNOMED: 129785429 (2) Parkinson disease ICD Codes: G20 - Parkinson's disease SNOMED: 34656423 (3) Schizophrenia ICD Codes: F20.9 - Schizophrenia, unspecified SNOMED: 86383888 (4) Hypertension ICD Codes: I10 - Essential (primary) hypertension SNOMED: 88212603 (5) Respiratory failure ICD Codes: J96.90 - Respiratory failure, unspecified, unspecified whether with hypoxia or hypercapnia SNOMED: 977540669 (6) Hypothyroidism ICD Codes: E03.9 - Hypothyroidism, unspecified SNOMED: 32332890 Status: progressing, unchanged Assessment/Plan: TSH improved - continue Levothyroxine 75 mcg IV daily continue Novolog sliding scale every 6 hours hypoglycemia protocol in order Subjective ROS Limited/Unobtainable: Yes Allergies: Coded Allergies: LITHIUM (Verified Allergy, Unknown, 02/07/19) Subjective events noted still in ICU glucose values are stable Item Value Date Time Bedside Blood Glucose 129 mg/dl H 12/29/19 1127 Bedside Blood Glucose 187 mg/dl H 12/29/19 0533 Bedside Blood Glucose 171 mg/dl H 12/28/19 2310 Objective Last 24 Hour Vital Signs Date Time Temp Pulse Resp B/P (MAP) Pulse Ox O2 Delivery O2 Flow Rate FiO2 12/29/19 13:00 97.7 79 17 120/52 (74) 100 12/29/19 12:34 97 12/29/19 12:00 82 17 130/56 (80) 99 12/29/19 11:00 79 17 111/53 (72) 100 12/29/19 10:00 71 10 106/41 (62) 100 12/29/19 09:00 67 5 111/42 (65) 100 12/29/19 08:00 Bi-pap 12/29/19 08:00 71 12/29/19 08:00 45 12/29/19 08:00 98.3 78 14 135/52 (79) 100 12/29/19 07:00 73 14 100 45 12/29/19 07:00 77 11 121/47 (71) 100 12/29/19 07:00 100 Bi-Pap 45 12/29/19 06:00 77 17 120/47 (71) 98 7/18/20 05:00 72 20 112/41 (64) 97 12/29/19 04:00 Bi-pap 12/29/19 04:00 98.3 69 19 113/41 (65) 98 12/29/19 04:00 68 12/29/19 04:00 45 12/29/19 03:17 74 13 97 45 12/29/19 03:00 70 19 104/31 (55) 97 12/29/19 02:00 70 12 112/45 (67) 99 12/29/19 01:00 69 20 108/42 (64) 98 12/29/19 00:00 Bi-pap 12/29/19 00:00 74 12/29/19 00:00 98.5 68 14 108/43 (64) 100 12/29/19 00:00 45 12/28/19 23:00 65 14 116/42 (66) 98 12/28/19 22:32 68 14 99 45 12/28/19 22:30 69 21 112/44 (66) 99 12/28/19 22:00 66 22 99/40 (59) 99 12/28/19 21:00 75 22 108/43 (64) 99 12/28/19 20:00 60 12/28/19 20:00 Bi-pap 12/28/19 20:00 74 12/28/19 20:00 98.3 72 17 105/42 (63) 97 12/28/19 19:00 71 17 109/44 (65) 99 12/28/19 18:59 86 14 98 45 12/28/19 18:58 98 Bi-Pap 45 12/28/19 18:00 72 16 112/44 (66) 94 12/28/19 17:30 68 21 108/37 (60) 95 12/28/19 17:00 79 19 109/38 (61) 97 12/28/19 16:00 98.9 78 25 111/39 (63) 98 12/28/19 16:00 Bi-pap 12/28/19 16:00 82 12/28/19 16:00 60 12/28/19 15:30 78 20 93/35 (54) 97 12/28/19 15:00 82 21 122/43 (69) 12/28/19 14:55 86 14 98 45 12/28/19 14:00 80 15 105/45 (65) Intake and Output 12/28/19 12/29/19 18:59 06:59 Intake Total 760 ml 1075.33 ml Output Total 1620 ml 2540 ml Balance -860 ml -1464.67 ml Free Water 300 ml IV Total 60 ml 55.33 ml Tube Feeding 660 ml 660 ml Other 40 ml 60 ml Output Urine Total 1620 ml 2540 ml # Bowel Movements 1 Laboratory Tests 12/28/19 18:09: POC Whole Blood Glucose [Pending] 12/28/19 23:07: POC Whole Blood Glucose 171H 12/29/19 03:20: White Blood Count 9.1, Red Blood Count 3.23L, Hemoglobin 10.4L, Hematocrit 32.8L , Mean Corpuscular Volume 102H, Mean Corpuscular Hemoglobin 32.2H, Mean Corpuscular Hemoglobin Concent 31.7L, Red Cell Distribution Width 12.9, Platelet Count 185, Mean Platelet Volume 7.3, Neutrophils (%) (Auto) 84.2H, Lymphocytes (%) (Auto) 9.4L, Monocytes (%) (Auto) 5.9, Eosinophils (%) (Auto) 0.2, Basophils (%) (Auto) 0.3, Sodium Level 142, Potassium Level 3.2L, Chloride Level 98, Carbon Dioxide Level 44*H, Anion Gap 0L, Blood Urea Nitrogen 39H, Creatinine 0.9, Estimat Glomerular Filtration Rate > 60, Glucose Level 193H, Calcium Level 8.3L, Phosphorus Level 3.5, Magnesium Level 1.9, Total Bilirubin 0.5, Aspartate Amino Transf (AST/SGOT) 13L, Alanine Aminotransferase (ALT/SGPT) 30, Alkaline Phosphatase 39L, C-Reactive Protein, Quantitative 1.8H, Pro-B-Type Natriuretic Peptide 99786E, Total Protein 6.4, Albumin 2.9L, Globulin 3.5, Albumin/Globulin Ratio 0.8L 12/29/19 05:25: POC Whole Blood Glucose 187H 12/29/19 08:26: Arterial Blood pH 7.453H, Arterial Blood Partial Pressure CO2 66.6*H, Arterial Blood Partial Pressure O2 73.6L, Arterial Blood HCO3 45.6*H, Arterial Blood Oxygen Saturation 94.4L, Arterial Blood Base Excess 18.5*H, Raphael Test Positive 12/29/19 11:16: Arterial Blood pH 7.414, Arterial Blood Partial Pressure CO2 74.3*H, Arterial Blood Partial Pressure O2 94.7, Arterial Blood HCO3 46.5*H, Arterial Blood Oxygen Saturation 96.4, Arterial Blood Base Excess 18.6*H, Raphael Test Positive Height (Feet): 5 Height (Inches): 7.00 Weight (Pounds): 204 General Appearance: lethargic Neck: normal alignment Cardiovascular: normal rate Respiratory/Chest: decreased breath sounds Objective Current Medications Medications (Trade) Dose Ordered Sig/Angie Route PRN Reason Start Time Stop Time Status Last Admin Dose Admin Acetaminophen (Tylenol) 650 mg Q6H PRN ORAL Mild Pain (Pain Scale 1-3) 12/12/19 12:30 01/11/20 12:29 12/22/19 20:56 Acetaminophen (Tylenol) 1,000 mg Q6H PRN ORAL MODERATE PAIN 12/12/19 12:30 01/11/20 12:29 Acetazolamide (Diamox 500mg Inj) 250 mg EVERY 6 HOURS IVP 12/28/19 12:00 12/30/19 06:01 12/29/19 11:26 Amantadine HCl (Symmetrel) 100 mg TWICE A DAY ORAL 12/22/19 18:00 01/11/20 08:59 12/29/19 09:01 Aspirin (ASA) 324 mg DAILY ORAL 12/23/19 09:00 02/04/20 08:59 12/29/19 09:00 Atorvastatin Calcium (Lipitor) 10 mg BEDTIME ORAL 12/22/19 21:00 03/11/20 20:59 12/28/19 20:27 Calcium Carbonate (Os-Octavio) 500 mg THREE TIMES A DAY ORAL 12/22/19 13:00 03/20/20 17:59 12/29/19 12:52 Clonidine HCl (Catapres Tab) 0.1 mg Q6H PRN GT For high BP over 160 systolic 12/15/19 16:30 03/11/20 12:30 12/24/19 01:47 Dextrose (Dextrose 50%) 25 ml Q30M PRN IV Hypoglycemia 12/13/19 07:15 03/12/20 07:14 Dextrose (Dextrose 50%) 50 ml Q30M PRN IV Hypoglycemia 12/13/19 07:15 03/12/20 07:14 Divalproex Sodium (Depakote) 250 mg EVERY 12 HOURS ORAL 12/22/19 21:00 01/12/20 20:59 12/29/19 09:00 Docusate Sodium (Colace) 100 mg TWICE A DAY ORAL 12/22/19 18:00 01/14/20 17:59 12/29/19 09:01 Fentanyl Citrate 250 ml @ 0 mls/hr Q24H IV 12/18/19 20:53 03/17/20 20:52 12/19/19 20:56 Insulin Aspart (NovoLOG) EVERY 6 HOURS SUBQ 12/13/19 12:00 03/12/20 11:59 12/29/19 05:33 Lactulose (Cephulac) 20 gm BID ORAL 12/25/19 09:00 01/24/20 08:59 12/29/19 09:01 Levothyroxine Sodium (Synthroid) 100 mcg DAILY IV 12/27/19 09:00 01/11/20 09:29 12/29/19 09:03 Methylprednisolone Sodium Succinate (Solu-MEDROL) 20 mg EVERY 6 HOURS IVP 12/22/19 12:00 03/18/20 11:59 12/29/19 11:26 Nitroglycerin (Ntg) 0.4 mg Q5MIN X 3 DOSES PRN SL CHEST PAIN 12/12/19 12:00 01/10/20 21:44 Pantoprazole (Protonix) 40 mg EVERY 12 HOURS IVP 12/14/19 09:00 01/13/20 08:59 12/29/19 09:01 Phosphorus (Phospha 250 Neutral) 250 mg THREE TIMES A DAY ORAL 12/22/19 13:00 01/14/20 08:59 12/29/19 12:52 Polyethylene Glycol (Miralax) 17 gm BEDTIME ORAL 12/22/19 21:00 01/18/20 20:59 12/28/19 20:27 Polyethylene Glycol (Miralax) 17 gm DAILYPRN PRN ORAL Constipation 12/24/19 19:00 01/23/20 18:59 Potassium Chloride 100 ml @ 100 mls/hr Q1HR IVPB 12/29/19 11:00 12/29/19 14:59 12/29/19 12:52 Quetiapine Fumarate (SEROqueL) 50 mg Q12HR ORAL 12/22/19 21:00 02/05/20 20:59 12/29/19 09:01 Sodium Chloride 400 ml @ 100 mls/hr Q4H IV 12/29/19 10:30 12/29/19 14:29 12/29/19 11:28 Jabari Adams MD Dec 29, 2019 13:40
[2019-12-29] MEDS ORDERED: NS 275ml ONE (14:00)
--- NOTE | 2019-12-29 14:00 | NUR ---
NURSE NOTES: Pt had episode of very large amount of soft/pasty light brown stool. Bed bath was given, pt cleaned, gown/bed linens were changed. Pt remains on Venturi mask at 100% O2Sat with no respiratory distress. Pt is afebrile. Tolerating NGT feeding at goal rate with no noted residual. Pt was repositioned for comfort. Bilateral soft wrist restraints remain in place for pt safety, as pt is repeatedly attempting to reach/pull venti mask off face and dangle legs from side rails. Skin integrity at restraint site remains within normal limits.
--- NOTE | 2019-12-29 15:00 | NUR ---
NURSE NOTES: Pt was seen by Dr Davies. No new orders were received at this time. VS remain stable.
--- NOTE | 2019-12-29 15:11 | General Progress Note ---
Assessment/Plan Status: progressing, unchanged Assessment/Plan: Assessment - Resp failure - r/o COVID -- x 2 negative - COPD - HTN - Anemia - Abnormal LFT Recommendations - Continue TF - Elevate HOB - abx - follow labs - f/u hepatitis serologies - abd ultrasound next week Subjective Allergies: Coded Allergies: LITHIUM (Verified Allergy, Unknown, 02/07/19) Subjective Above noted d/w RN tolerating TF on O2 mask Objective Last 24 Hour Vital Signs Date Time Temp Pulse Resp B/P (MAP) Pulse Ox O2 Delivery O2 Flow Rate FiO2 12/29/19 14:00 83 23 133/62 (85) 99 12/29/19 13:00 97.7 79 17 120/52 (74) 100 12/29/19 12:34 97 12/29/19 12:00 10.0 45 12/29/19 12:00 Bi-pap 12/29/19 12:00 82 17 130/56 (80) 99 12/29/19 11:00 79 17 111/53 (72) 100 12/29/19 10:00 71 10 106/41 (62) 100 12/29/19 09:00 67 5 111/42 (65) 100 12/29/19 08:00 Bi-pap 12/29/19 08:00 71 12/29/19 08:00 45 12/29/19 08:00 98.3 78 14 135/52 (79) 100 12/29/19 07:00 73 14 100 45 12/29/19 07:00 77 11 121/47 (71) 100 12/29/19 07:00 100 Bi-Pap 45 12/29/19 06:00 77 17 120/47 (71) 98 12/29/19 05:00 72 20 112/41 (64) 97 12/29/19 04:00 Bi-pap 12/29/19 04:00 98.3 69 19 113/41 (65) 98 12/29/19 04:00 68 12/29/19 04:00 45 12/29/19 03:17 74 13 97 45 12/29/19 03:00 70 19 104/31 (55) 97 12/29/19 02:00 70 12 112/45 (67) 99 12/29/19 01:00 69 20 108/42 (64) 98 12/29/19 00:00 Bi-pap 12/29/19 00:00 74 12/29/19 00:00 98.5 68 14 108/43 (64) 100 12/29/19 00:00 45 12/28/19 23:00 65 14 116/42 (66) 98 12/28/19 22:32 68 14 99 45 12/28/19 22:30 69 21 112/44 (66) 99 12/28/19 22:00 66 22 99/40 (59) 99 12/28/19 21:00 75 22 108/43 (64) 99 12/28/19 20:00 60 12/28/19 20:00 Bi-pap 12/28/19 20:00 74 12/28/19 20:00 98.3 72 17 105/42 (63) 97 12/28/19 19:00 71 17 109/44 (65) 99 12/28/19 18:59 86 14 98 45 12/28/19 18:58 98 Bi-Pap 45 12/28/19 18:00 72 16 112/44 (66) 94 12/28/19 17:30 68 21 108/37 (60) 95 12/28/19 17:00 79 19 109/38 (61) 97 12/28/19 16:00 98.9 78 25 111/39 (63) 98 12/28/19 16:00 Bi-pap 12/28/19 16:00 82 12/28/19 16:00 60 12/28/19 15:30 78 20 93/35 (54) 97 Intake and Output 12/28/19 12/29/19 19:00 07:00 Intake Total 760 ml 1075.33 ml Output Total 1520 ml 2740 ml Balance -760 ml -1664.67 ml Free Water 300 ml IV Total 60 ml 55.33 ml Tube Feeding 660 ml 660 ml Other 40 ml 60 ml Output Urine Total 1520 ml 2740 ml # Bowel Movements 1 Laboratory Tests 12/28/19 18:09: POC Whole Blood Glucose [Pending] 12/28/19 23:07: POC Whole Blood Glucose 171H 12/29/19 03:20: White Blood Count 9.1, Red Blood Count 3.23L, Hemoglobin 10.4L, Hematocrit 32.8L , Mean Corpuscular Volume 102H, Mean Corpuscular Hemoglobin 32.2H, Mean Corpuscular Hemoglobin Concent 31.7L, Red Cell Distribution Width 12.9, Platelet Count 185, Mean Platelet Volume 7.3, Neutrophils (%) (Auto) 84.2H, Lymphocytes (%) (Auto) 9.4L, Monocytes (%) (Auto) 5.9, Eosinophils (%) (Auto) 0.2, Basophils (%) (Auto) 0.3, Sodium Level 142, Potassium Level 3.2L, Chloride Level 98, Carbon Dioxide Level 44*H, Anion Gap 0L, Blood Urea Nitrogen 39H, Creatinine 0.9, Estimat Glomerular Filtration Rate > 60, Glucose Level 193H, Calcium Level 8.3L, Phosphorus Level 3.5, Magnesium Level 1.9, Total Bilirubin 0.5, Aspartate Amino Transf (AST/SGOT) 13L, Alanine Aminotransferase (ALT/SGPT) 30, Alkaline Phosphatase 39L, C-Reactive Protein, Quantitative 1.8H, Pro-B-Type Natriuretic Peptide [id number], Total Protein 6.4, Albumin 2.9L, Globulin 3.5, Albumin/Globulin Ratio 0.8L 12/29/19 05:25: POC Whole Blood Glucose 187H 12/29/19 08:26: Arterial Blood pH 7.453H, Arterial Blood Partial Pressure CO2 66.6*H, Arterial Blood Partial Pressure O2 73.6L, Arterial Blood HCO3 45.6*H, Arterial Blood Oxygen Saturation 94.4L, Arterial Blood Base Excess 18.5*H, Raphael Test Positive 12/29/19 11:16: Arterial Blood pH 7.414, Arterial Blood Partial Pressure CO2 74.3*H, Arterial Blood Partial Pressure O2 94.7, Arterial Blood HCO3 46.5*H, Arterial Blood Oxygen Saturation 96.4, Arterial Blood Base Excess 18.6*H, Raphael Test Positive Height (Feet): 5 Height (Inches): 7.00 Weight (Pounds): 204 Objective Elderly woman in ICU NAD CTA RR abd soft Aria Chicas MD Dec 29, 2019 15:11
--- NOTE | 2019-12-29 16:24 | Cardiac Electrophysiology PN ---
Assessment/Plan Assessment/Plan 1. Recurrent respiratory failure with BNP of more than 19,000. Echo showed normal EF. On Lasix 5mg/hr, on Venturi Mask 2. Bradycardia requiring atropine due to respiratory failure as was on T piece at the time. 3. Bilateral UE edema. Venous Duplex was negative on 12/12/19. 4. History of Parkinson disease. 5. Hyperlipidemia. DW RN Subjective Subjective On Venturi Mask in ICU with frequent Trigeminal PVCs Objective Last 24 Hour Vital Signs Date Time Temp Pulse Resp B/P (MAP) Pulse Ox O2 Delivery O2 Flow Rate FiO2 12/29/19 15:00 79 20 114/55 (74) 100 12/29/19 14:00 83 23 133/62 (85) 99 12/29/19 13:00 97.7 79 17 120/52 (74) 100 12/29/19 12:34 97 12/29/19 12:00 10.0 45 12/29/19 12:00 Bi-pap 12/29/19 12:00 82 17 130/56 (80) 99 12/29/19 11:00 79 17 111/53 (72) 100 12/29/19 10:00 71 10 106/41 (62) 100 12/29/19 09:00 67 5 111/42 (65) 100 12/29/19 08:00 Bi-pap 12/29/19 08:00 71 12/29/19 08:00 45 12/29/19 08:00 98.3 78 14 135/52 (79) 100 12/29/19 07:00 73 14 100 45 12/29/19 07:00 77 11 121/47 (71) 100 12/29/19 07:00 100 Bi-Pap 45 12/29/19 06:00 77 17 120/47 (71) 98 12/29/19 05:00 72 20 112/41 (64) 97 12/29/19 04:00 Bi-pap 12/29/19 04:00 98.3 69 19 113/41 (65) 98 12/29/19 04:00 68 12/29/19 04:00 45 12/29/19 03:17 74 13 97 45 12/29/19 03:00 70 19 104/31 (55) 97 12/29/19 02:00 70 12 112/45 (67) 99 12/29/19 01:00 69 20 108/42 (64) 98 12/29/19 00:00 Bi-pap 12/29/19 00:00 74 12/29/19 00:00 98.5 68 14 108/43 (64) 100 12/29/19 00:00 45 12/28/19 23:00 65 14 116/42 (66) 98 12/28/19 22:32 68 14 99 45 12/28/19 22:30 69 21 112/44 (66) 99 12/28/19 22:00 66 22 99/40 (59) 99 12/28/19 21:00 75 22 108/43 (64) 99 12/28/19 20:00 60 12/28/19 20:00 Bi-pap 12/28/19 20:00 74 12/28/19 20:00 98.3 72 17 105/42 (63) 97 12/28/19 19:00 71 17 109/44 (65) 99 12/28/19 18:59 86 14 98 45 12/28/19 18:58 98 Bi-Pap 45 12/28/19 18:00 72 16 112/44 (66) 94 12/28/19 17:30 68 21 108/37 (60) 95 12/28/19 17:00 79 19 109/38 (61) 97 Intake and Output 12/28/19 12/29/19 19:00 07:00 Intake Total 760 ml 1075.33 ml Output Total 1520 ml 2740 ml Balance -760 ml -1664.67 ml Free Water 300 ml IV Total 60 ml 55.33 ml Tube Feeding 660 ml 660 ml Other 40 ml 60 ml Output Urine Total 1520 ml 2740 ml # Bowel Movements 1 Laboratory Tests Test 12/28/19 18:09 12/28/19 23:07 12/29/19 03:20 12/29/19 05:25 POC Whole Blood Glucose Pending 171 MG/DL (74-106) H 187 MG/DL (74-106) H White Blood Count 9.1 K/UL (4.8-10.8) Red Blood Count 3.23 M/UL (4.20-5.40) L Hemoglobin 10.4 G/DL (12.0-16.0) L Hematocrit 32.8 % (37.0-47.0) L Mean Corpuscular Volume 102 FL (80-99) H Mean Corpuscular Hemoglobin 32.2 PG (27.0-31.0) H Mean Corpuscular Hemoglobin Concent 31.7 G/DL (32.0-36.0) L Red Cell Distribution Width 12.9 % (11.6-14.8) Platelet Count 185 K/UL (150-450) Mean Platelet Volume 7.3 FL (6.5-10.1) Neutrophils (%) (Auto) 84.2 % (45.0-75.0) H Lymphocytes (%) (Auto) 9.4 % (20.0-45.0) L Monocytes (%) (Auto) 5.9 % (1.0-10.0) Eosinophils (%) (Auto) 0.2 % (0.0-3.0) Basophils (%) (Auto) 0.3 % (0.0-2.0) Sodium Level 142 MMOL/L (136-145) Potassium Level 3.2 MMOL/L (3.5-5.1) L Chloride Level 98 MMOL/L (98-107) Carbon Dioxide Level 44 MMOL/L (21-32) *H Anion Gap 0 mmol/L (5-15) L Blood Urea Nitrogen 39 mg/dL (7-18) H Creatinine 0.9 MG/DL (0.55-1.30) Estimat Glomerular Filtration Rate > 60 mL/min (>60) Glucose Level 193 MG/DL (74-106) H Calcium Level 8.3 MG/DL (8.5-10.1) L Phosphorus Level 3.5 MG/DL (2.5-4.9) Magnesium Level 1.9 MG/DL (1.8-2.4) Total Bilirubin 0.5 MG/DL (0.2-1.0) Aspartate Amino Transf (AST/SGOT) 13 U/L (15-37) L Alanine Aminotransferase (ALT/SGPT) 30 U/L (12-78) Alkaline Phosphatase 39 U/L (46-116) L C-Reactive Protein, Quantitative 1.8 mg/dL (0.00-0.90) H Pro-B-Type Natriuretic Peptide 93891 pg/mL (0-125) H Total Protein 6.4 G/DL (6.4-8.2) Albumin 2.9 G/DL (3.4-5.0) L Globulin 3.5 g/dL Albumin/Globulin Ratio 0.8 (1.0-2.7) L Test 12/29/19 08:26 12/29/19 11:16 Arterial Blood pH 7.453 (7.350-7.450) 7.414 (7.350-7.450) Arterial Blood Partial Pressure CO2 66.6 mmHg (35.0-45.0) *H 74.3 mmHg (35.0-45.0) *H Arterial Blood Partial Pressure O2 73.6 mmHg (75.0-100.0) L 94.7 mmHg (75.0-100.0) Arterial Blood HCO3 45.6 mmol/L (22.0-26.0) *H 46.5 mmol/L (22.0-26.0) *H Arterial Blood Oxygen Saturation 94.4 % (95-100) L 96.4 % (95-100) Arterial Blood Base Excess 18.5 (-2-2) *H 18.6 (-2-2) *H Raphael Test Positive Positive Objective HEAD AND NECK: No JVD.BIPAP is on LUNGS: Coarse rhonchi. CARDIOVASCULAR: Regular S1 and S2 and tachycardic. ABDOMEN: Soft. EXTREMITIES: Bilateral Arm edema. Cameron Davies MD Dec 29, 2019 16:24
--- NOTE | 2019-12-29 18:00 | NUR ---
NURSE NOTES: Colace was held due to pt having diarrhea, two episodes of very large amount of soft/pasty light brown stool. Pt was given complete bed-bath, cleaned, gown/bed linens were changed, and pt repositioned. VS remain stable. Pt remains on Venturi mask at FIO2 45%, currently at 100% O2Sat. NGT feeding is infusing at goal rate of 55ml/hour with no residual noted.
--- NOTE | 2019-12-29 19:30 | NUR ---
NURSE NOTES: Received report from DARREL Hickman Pt is asleep but wake to arousal to voice/touch, follows commands Pt is on Ventri mask 45% FiO2 NSR on vice president for instruction NGT on Left nare: feeding Vital AF 1.2 55mL/hr (goal). No residual. Abdomen is large, round, soft, nontender to touch with hyperactive Ace cath is intact draining yellow/clear urine. Pt IV Right hand 22G and Left FA 20G, both CDI Skin alteration noted on sacral area, covered with optifoam dressing by HIRA Pt is on pressure release mattress Bilateral SCDs on lower extremities for DVT prophylaxis HOB at 30 degrees and safety measure observed Bilateral soft wrist restraints are in place for pt safety, started 12/26 0000 Will continue with plan of care
--- NOTE | 2019-12-29 19:36 | NUR ---
HAND-OFF: Report given to Cici ROJO. Endorsed plan of care. VS remain stable. Addendum: 12/29/19 at 1953 by MICHAEL LONGO RN Labs ordered for AM including Ammonia level (since pt is on Lactulose), CBC, CMP.
--- NOTE | 2019-12-29 20:30 | NUR ---
NURSE NOTES: Pt has been having diarrhea and large amount of BM x 2 per AMRN. Cleaned Pt soiled lower body and extremities Changed soiled linen and gown Rectal tube inserted Afebrile and VSS Safety measure is observed Will continue to monitor
[2019-12-29] MEDS: Miralax 17gm pkt ORAL SCH (20:40)
--- NOTE | 2019-12-29 21:54 | General Progress Note ---
Assessment/Plan Problem List: (1) Dyspnea ICD Codes: R06.00 - Dyspnea, unspecified SNOMED: 579573219 (2) Hypothyroidism ICD Codes: E03.9 - Hypothyroidism, unspecified SNOMED: 96378327 (3) Obese ICD Codes: E66.9 - Obesity, unspecified SNOMED: 267559762, 479040046 (4) Psychosis ICD Codes: F29 - Unspecified psychosis not due to a substance or known physiological condition SNOMED: 39754332 (5) Respiratory failure ICD Codes: J96.90 - Respiratory failure, unspecified, unspecified whether with hypoxia or hypercapnia SNOMED: 345975157 (6) Respiratory distress ICD Codes: R06.03 - Acute respiratory distress SNOMED: 678219030 (7) Dyspnea ICD Codes: R06.00 - Dyspnea, unspecified SNOMED: 281289662 (8) Pneumonia ICD Codes: J18.9 - Pneumonia, unspecified organism SNOMED: 966844076 (9) Acute and chronic respiratory failure ICD Codes: J96.20 - Acute and chronic respiratory failure, unspecified whether with hypoxia or hypercapnia SNOMED: 55282520 (10) Diabetes mellitus type 2 in nonobese ICD Codes: E11.9 - Type 2 diabetes mellitus without complications SNOMED: 462312361 (11) CHF (congestive heart failure) ICD Codes: I50.9 - Heart failure, unspecified SNOMED: 49747244 Qualifiers: Qualified Codes: I50.9 - Heart failure, unspecified (12) Hypoxia ICD Codes: R09.02 - Hypoxemia SNOMED: 430472814 (13) Elevated d-dimer ICD Codes: R79.89 - Other specified abnormal findings of blood chemistry SNOMED: 135242799 (14) Schizophrenia ICD Codes: F20.9 - Schizophrenia, unspecified SNOMED: 24746414 (15) Parkinson disease ICD Codes: G20 - Parkinson's disease SNOMED: 42550432 Status: progressing, unchanged Assessment/Plan: on lasix drip fluid overload lethargic on bipap low k afebrile lethargy obesity covid negative pleural effusion Subjective ROS Limited/Unobtainable: Yes Allergies: Coded Allergies: LITHIUM (Verified Allergy, Unknown, 02/07/19) Objective Last 24 Hour Vital Signs Date Time Temp Pulse Resp B/P (MAP) Pulse Ox O2 Delivery O2 Flow Rate FiO2 12/29/19 20:00 76 12/29/19 20:00 Bi-pap 12/29/19 20:00 98.4 76 21 110/24 (52) 99 12/29/19 20:00 10.0 45 12/29/19 19:47 100 Venturi Mask 10.0 45 12/29/19 19:00 79 17 119/46 (70) 98 12/29/19 18:00 98.3 76 19 105/40 (61) 98 12/29/19 17:00 83 22 116/38 (64) 98 12/29/19 16:00 83 12/29/19 16:00 10.0 45 12/29/19 16:00 84 20 121/48 (72) 100 12/29/19 16:00 Bi-pap 12/29/19 15:00 79 20 114/55 (74) 100 12/29/19 14:00 83 23 133/62 (85) 99 12/29/19 13:00 97.7 79 17 120/52 (74) 100 12/29/19 12:34 97 12/29/19 12:00 10.0 45 12/29/19 12:00 Bi-pap 12/29/19 12:00 82 17 130/56 (80) 99 12/29/19 11:00 79 17 111/53 (72) 100 12/29/19 10:00 71 10 106/41 (62) 100 12/29/19 09:00 67 5 111/42 (65) 100 12/29/19 08:00 Bi-pap 12/29/19 08:00 71 12/29/19 08:00 45 12/29/19 08:00 98.3 78 14 135/52 (79) 100 12/29/19 07:00 73 14 100 45 12/29/19 07:00 77 11 121/47 (71) 100 12/29/19 07:00 100 Bi-Pap 45 12/29/19 06:00 77 17 120/47 (71) 98 12/29/19 05:00 72 20 112/41 (64) 97 12/29/19 04:00 Bi-pap 12/29/19 04:00 98.3 69 19 113/41 (65) 98 12/29/19 04:00 68 7/18/20 04:00 45 12/29/19 03:17 74 13 97 45 12/29/19 03:00 70 19 104/31 (55) 97 12/29/19 02:00 70 12 112/45 (67) 99 12/29/19 01:00 69 20 108/42 (64) 98 12/29/19 00:00 Bi-pap 12/29/19 00:00 74 12/29/19 00:00 98.5 68 14 108/43 (64) 100 12/29/19 00:00 45 12/28/19 23:00 65 14 116/42 (66) 98 12/28/19 22:32 68 14 99 45 12/28/19 22:30 69 21 112/44 (66) 99 12/28/19 22:00 66 22 99/40 (59) 99 Intake and Output 12/28/19 12/29/19 19:00 07:00 Intake Total 760 ml 1075.33 ml Output Total 1520 ml 2740 ml Balance -760 ml -1664.67 ml Free Water 300 ml IV Total 60 ml 55.33 ml Tube Feeding 660 ml 660 ml Other 40 ml 60 ml Output Urine Total 1520 ml 2740 ml # Bowel Movements 1 Laboratory Tests 12/28/19 23:07: POC Whole Blood Glucose 171H 12/29/19 03:20: White Blood Count 9.1, Red Blood Count 3.23L, Hemoglobin 10.4L, Hematocrit 32.8L , Mean Corpuscular Volume 102H, Mean Corpuscular Hemoglobin 32.2H, Mean Corpuscular Hemoglobin Concent 31.7L, Red Cell Distribution Width 12.9, Platelet Count 185, Mean Platelet Volume 7.3, Neutrophils (%) (Auto) 84.2H, Lymphocytes (%) (Auto) 9.4L, Monocytes (%) (Auto) 5.9, Eosinophils (%) (Auto) 0.2, Basophils (%) (Auto) 0.3, Sodium Level 142, Potassium Level 3.2L, Chloride Level 98, Carbon Dioxide Level 44*H, Anion Gap 0L, Blood Urea Nitrogen 39H, Creatinine 0.9, Estimat Glomerular Filtration Rate > 60, Glucose Level 193H, Calcium Level 8.3L, Phosphorus Level 3.5, Magnesium Level 1.9, Total Bilirubin 0.5, Aspartate Amino Transf (AST/SGOT) 13L, Alanine Aminotransferase (ALT/SGPT) 30, Alkaline Phosphatase 39L, C-Reactive Protein, Quantitative 1.8H, Pro-B-Type Natriuretic Peptide 37325L, Total Protein 6.4, Albumin 2.9L, Globulin 3.5, Albumin/Globulin Ratio 0.8L 12/29/19 05:25: POC Whole Blood Glucose 187H 12/29/19 08:26: Arterial Blood pH 7.453H, Arterial Blood Partial Pressure CO2 66.6*H, Arterial Blood Partial Pressure O2 73.6L, Arterial Blood HCO3 45.6*H, Arterial Blood Oxygen Saturation 94.4L, Arterial Blood Base Excess 18.5*H, Raphael Test Positive 12/29/19 11:16: Arterial Blood pH 7.414, Arterial Blood Partial Pressure CO2 74.3*H, Arterial Blood Partial Pressure O2 94.7, Arterial Blood HCO3 46.5*H, Arterial Blood Oxygen Saturation 96.4, Arterial Blood Base Excess 18.6*H, Raphael Test Positive Height (Feet): 5 Height (Inches): 7.00 Weight (Pounds): 204 Dani Perera MD Dec 29, 2019 21:54
--- NOTE | 2019-12-29 22:00 | NUR ---
NURSE NOTES: Pt has been moving her head to move Ventri mask De-sats to 80s when pt took Ventri mask off Pt is under soft wrist restrain Repositioned Oral care provided Safety measure observed Will continue to monitor
--- NOTE | 2019-12-29 23:30 | NUR ---
NURSE NOTES: RT is at bed side to adjust Ventri mask and FiO2 to 40% Pt was agitated and moved her body a lot NGT came out Rectal tube came out Bed is soiled Notified service observer chief
--- NOTE | 2019-12-29 23:45 | NUR ---
NURSE NOTES: Cleaned pt Changed all soiled linens, pads, sheets, and gown Rectal tube re-inserted OGT inserted instead of NGT by campus administrative assistant Feeding has been stopped X-ray ordered Midnight meds were delayed Safety measure is observed Afebrile and VSS No acute distress noted Will continue to monitor
[2019-12-30] VITALS (24 sets, daily range): BP systolic 99–139; BP diastolic 30–91
--- NOTE | 2019-12-30 01:00 | NUR ---
NURSE NOTES: Pt calm down and asleep on the cleaned bed Midnight meds were all given Safety measure observed IV sites are CDI Will continue to monitor
[2019-12-30] MEDS: Solu-MEDROL 40mg Inj IVP SCH ×5 (01:12→23:36)
[2019-12-30] MEDS: acetaZOLAMIDE 500mg Inj IVP SCH ×2 (01:12→05:26)
--- NOTE | 2019-12-30 03:00 | NUR ---
NURSE NOTES: NURSE NOTES: Pt calm down and asleep Afebrile and VSS Safety measure observed IV sites are CDI Will continue to monitor
--- NOTE | 2019-12-30 04:00 | NUR ---
NURSE NOTES: X-ray came. Pt agitated and moved alot while taken Xray. X-ray facilities maintenance technician had a hard time to take the image Will wait the result due to start feeding
--- NOTE | 2019-12-30 04:02 | Diagnostic Imaging Report ---
EXAM: XR Abdomen, 2 Views CLINICAL HISTORY: NGT TECHNIQUE: Frontal view of the abdomen/pelvis with upright view of the abdomen. COMPARISON: 12/27/19. FINDINGS: Lower thorax: There is unchanged cardiomegaly, pulmonary venous congestion and small bilateral pleural effusions. Intraperitoneal space: No free air. Gastrointestinal tract: Unremarkable. No dilation. Bones/joints: Unremarkable. Tubes, lines and devices: Since previous study there has been removal of an NG tube. No gastric tube is identified on today's study. IMPRESSION: 1. Since previous study there has been removal of an NG tube. No gastric tube is identified on today's study. 2. There is unchanged cardiomegaly, pulmonary venous congestion and small bilateral pleural effusions.
--- NOTE | 2019-12-30 04:30 | NUR ---
NURSE NOTES: Lab was drawn by singing teacher
--- NOTE | 2019-12-30 05:00 | NUR ---
NURSE NOTES: Pt cough out OGT. No image on the Xray Re-inserted OGT with lining presser Cough out again. Will try NGT
[2019-12-30] MEDS: NovoLOG Insulin Flexpen SUBQ SCH ×5 (05:35→23:33)
[2019-12-30 06:04] LABS: AMMONIA 17 umol/L (11-32)
--- NOTE | 2019-12-30 06:06 | NUR ---
NURSE NOTES: NGT successfully inserted on Right Nare with 2nd RN. X-ray is requested for 2nd time. Afebrile and VSS Safety measure observed Will continue to monitor
[2019-12-30 06:27] LABS: BASOPHILS % (AUTO) 0.4 % (0.0-2.0); HEMATOCRIT 39.3 % (37.0-47.0); HEMOGLOBIN 12.7 G/DL (12.0-16.0); LYMPHOCYTES % (AUTO) 10.2 % (20.0-45.0); MEAN CORPUSCULAR VOLUME 100 FL (80-99); MONOCYTES % (AUTO) 5.2 % (1.0-10.0); NEUTROPHILS % (AUTO) 84.2 % (45.0-75.0); PLATELET COUNT 209 K/UL (150-450); RED BLOOD COUNT 3.94 M/UL (4.20-5.40); RED CELL DISTRIBUTION WIDTH 13.1 % (11.6-14.8); WHITE BLOOD COUNT 14.9 K/UL (4.8-10.8)
[2019-12-30 06:40] LABS: ALANINE AMINOTRANSFERASE 32 U/L (12-78); ALBUMIN 3.2 G/DL (3.4-5.0); ALBUMIN/GLOBULIN RATIO 0.9 (1.0-2.7); ALKALINE PHOSPHATASE 42 U/L (46-116); ANION GAP 5 mmol/L (5-15); ASPARTATE AMINO TRANSFERASE 15 U/L (15-37); BILIRUBIN,TOTAL 0.6 MG/DL (0.2-1.0); CALCIUM 9.1 MG/DL (8.5-10.1); CARBON DIOXIDE 35 MMOL/L (21-32); CHLORIDE 100 MMOL/L (98-107); CREATININE 0.8 MG/DL (0.55-1.30); POTASSIUM 3.8 MMOL/L (3.5-5.1); SODIUM 140 MMOL/L (136-145)
[2019-12-30 06:47] LABS: BLOOD UREA NITROGEN 41 mg/dL (7-18)
--- NOTE | 2019-12-30 07:15 | NUR ---
NURSE NOTES: Received patient from Alcira ROJO. Patient is awake, alert to name, patient is disoriented. Sinus Rhythm on the heart monitor, HR 81. Receiving oxygen via Venturi Mask FiO2 at 40%. Right Nares NGT is intact, awaiting X-ray for placement. IV site is Right Hand 22g and Right Forearm 20g patent and intact. Ace catheter and rectal tube are patent and intact. Bed is locked, placed in lowest position, side rails up x3, bed alarm on, head of bed elevated, call light within reach. Will continue to monitor.
--- NOTE | 2019-12-30 08:03 | NUR ---
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 CURRENT TF:Vital 1.2 @55 -> held for new NGT placement. PO DIET RECOMMENDATIONS: LOW NA/ CCHO MED (texture per FILM COLOR TESTER) ENTERAL NUTRITION RECOMMENDATIONS: Vital 1.2 @50ml/hr x24 hrs to provide 1200ml, 1440 kcal, 90g pro, 973ml free H2O - Maintain TF as tolerated if pt is unable to transition to oral diet at this time d/t resp status (on bipap) - Flush per MD, HOB over 30 degrees ADDITIONAL RECOMMENDATIONS: * Per SNF: HT=68" UA=155nxw (12/04/19) * Monitor lytes, replete as needed * Rec added D5 IVF while pt is NPO to prevent hypoglycemia * Monitor Na -> trending up, now wnl * Monitor BMs in EMR: no recent record of BM- on lactulose bm 12/25, 12/29
--- NOTE | 2019-12-30 08:27 | Diagnostic Imaging Report ---
EXAM: XR Abdomen, 2 Views CLINICAL HISTORY: NGT TECHNIQUE: Frontal view of the abdomen/pelvis with upright view of the abdomen. COMPARISON: 12/27/19 FINDINGS: Intraperitoneal space: No free air. Gastrointestinal tract: There is improvement in gastric as well as small bowel dilatation. Bones/joints: Unremarkable. Tubes, lines and devices: There is an NG tube in good position with its tip in the region of the gastric antrum. IMPRESSION: Good position of NG tube. Improving gastric and small bowel dilatation
--- NOTE | 2019-12-30 08:31 | General Progress Note ---
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 - Other specified diabetes mellitus without complications SNOMED: 982231825 (2) Parkinson disease ICD Codes: G20 - Parkinson's disease SNOMED: 80334209 (3) Schizophrenia ICD Codes: F20.9 - Schizophrenia, unspecified SNOMED: 71899015 (4) Hypertension ICD Codes: I10 - Essential (primary) hypertension SNOMED: 78085446 (5) Respiratory failure ICD Codes: J96.90 - Respiratory failure, unspecified, unspecified whether with hypoxia or hypercapnia SNOMED: 028876533 (6) Hypothyroidism ICD Codes: E03.9 - Hypothyroidism, unspecified SNOMED: 51574737 Status: progressing, unchanged Assessment/Plan: TSH improved - continue Levothyroxine 75 mcg IV daily continue Novolog sliding scale every 6 hours hypoglycemia protocol in order Subjective ROS Limited/Unobtainable: Yes Allergies: Coded Allergies: LITHIUM (Verified Allergy, Unknown, 02/07/19) Subjective events noted still in ICU on BiPAP and TF glucose values are stable Item Value Date Time Bedside Blood Glucose 122 mg/dl H 12/30/19 0600 Bedside Blood Glucose 123 mg/dl H 12/30/19 0000 Bedside Blood Glucose 146 mg/dl H 12/29/19 1840 Bedside Blood Glucose 129 mg/dl H 12/29/19 1200 Bedside Blood Glucose 187 mg/dl H 12/29/19 0533 Objective Last 24 Hour Vital Signs Date Time Temp Pulse Resp B/P (MAP) Pulse Ox O2 Delivery O2 Flow Rate FiO2 12/30/19 08:00 Bi-pap 12/30/19 08:00 97.5 75 19 138/32 (67) 100 12/30/19 08:00 10.0 40 12/30/19 07:00 81 19 136/63 (87) 100 12/30/19 06:00 78 23 128/91 (103) 12/30/19 05:00 66 17 117/43 (67) 98 12/30/19 04:00 10.0 40 12/30/19 04:00 Bi-pap 12/30/19 04:00 67 19 118/43 (68) 100 12/30/19 04:00 67 12/30/19 03:00 72 19 123/41 (68) 100 7/19/20 02:00 73 21 119/44 (69) 100 12/30/19 01:00 75 18 116/42 (66) 96 12/30/19 00:00 Bi-pap 12/30/19 00:00 73 12/30/19 00:00 73 19 120/44 (69) 100 12/30/19 00:00 10.0 40 12/29/19 23:51 100 Venturi Mask 8.0 40 12/29/19 23:00 74 19 120/42 (68) 95 12/29/19 22:00 74 19 107/42 (63) 99 12/29/19 21:00 80 19 111/40 (63) 100 12/29/19 20:00 76 12/29/19 20:00 Bi-pap 12/29/19 20:00 98.4 76 21 110/24 (52) 99 12/29/19 20:00 10.0 45 12/29/19 19:47 100 Venturi Mask 10.0 45 12/29/19 19:00 79 17 119/46 (70) 98 12/29/19 18:00 98.3 76 19 105/40 (61) 98 12/29/19 17:00 83 22 116/38 (64) 98 12/29/19 16:00 83 12/29/19 16:00 10.0 45 12/29/19 16:00 84 20 121/48 (72) 100 12/29/19 16:00 Bi-pap 12/29/19 15:00 79 20 114/55 (74) 100 12/29/19 14:00 83 23 133/62 (85) 99 12/29/19 13:00 97.7 79 17 120/52 (74) 100 12/29/19 12:34 97 12/29/19 12:00 10.0 45 12/29/19 12:00 Bi-pap 12/29/19 12:00 82 17 130/56 (80) 99 12/29/19 11:00 79 17 111/53 (72) 100 12/29/19 10:00 71 10 106/41 (62) 100 12/29/19 09:00 67 5 111/42 (65) 100 Intake and Output 12/29/19 12/30/19 19:00 07:00 Intake Total 1725 ml 220 ml Output Total 1830 ml 1240 ml Balance -105 ml -1020 ml Free Water 300 ml IV Total 765 ml Tube Feeding 660 ml 220 ml Output Urine Total 1330 ml 1240 ml Stool Total 500 ml # Bowel Movements 2 1 Laboratory Tests 12/29/19 11:16: Arterial Blood pH 7.414, Arterial Blood Partial Pressure CO2 74.3*H, Arterial Blood Partial Pressure O2 94.7, Arterial Blood HCO3 46.5*H, Arterial Blood Oxygen Saturation 96.4, Arterial Blood Base Excess 18.6*H, Raphael Test Positive 12/30/19 04:38: White Blood Count 14.9#H, Red Blood Count 3.94L, Hemoglobin 12.7, Hematocrit 39.3, Mean Corpuscular Volume 100H, Mean Corpuscular Hemoglobin 32.3H, Mean Corpuscular Hemoglobin Concent 32.4, Red Cell Distribution Width 13.1, Platelet Count 209, Mean Platelet Volume 8.9, Neutrophils (%) (Auto) 84.2H, Lymphocytes ( %) (Auto) 10.2L, Monocytes (%) (Auto) 5.2, Eosinophils (%) (Auto) 0.0, Basophils (%) (Auto) 0.4, Sodium Level 140, Potassium Level 3.8, Chloride Level 100, Carbon Dioxide Level 35H, Anion Gap 5, Blood Urea Nitrogen 41H, Creatinine 0.8, Estimat Glomerular Filtration Rate > 60, Glucose Level 118H, Calcium Level 9.1, Total Bilirubin 0.6, Aspartate Amino Transf (AST/SGOT) 15, Alanine Aminotransferase (ALT/SGPT) 32, Alkaline Phosphatase 42L, Ammonia 17, Total Protein 6.9, Albumin 3.2L, Globulin 3.7, Albumin/Globulin Ratio 0.9L Height (Feet): 5 Height (Inches): 7.00 Weight (Pounds): 198 General Appearance: no apparent distress Neck: normal alignment, other - NGT Respiratory/Chest: decreased breath sounds Abdomen: normal bowel sounds Objective Current Medications Medications (Trade) Dose Ordered Sig/Angie Route PRN Reason Start Time Stop Time Status Last Admin Dose Admin Acetaminophen (Tylenol) 650 mg Q6H PRN ORAL Mild Pain (Pain Scale 1-3) 12/12/19 12:30 01/11/20 12:29 12/22/19 20:56 Acetaminophen (Tylenol) 1,000 mg Q6H PRN ORAL MODERATE PAIN 12/12/19 12:30 01/11/20 12:29 Amantadine HCl (Symmetrel) 100 mg TWICE A DAY ORAL 12/22/19 18:00 01/11/20 08:59 12/29/19 18:38 Aspirin (ASA) 324 mg DAILY ORAL 12/23/19 09:00 02/04/20 08:59 12/29/19 09:00 Atorvastatin Calcium (Lipitor) 10 mg BEDTIME ORAL 12/22/19 21:00 03/11/20 20:59 12/29/19 21:23 Calcium Carbonate (Os-Octavio) 500 mg THREE TIMES A DAY ORAL 12/22/19 13:00 03/20/20 17:59 12/29/19 18:38 Clonidine HCl (Catapres Tab) 0.1 mg Q6H PRN GT For high BP over 160 systolic 12/15/19 16:30 03/11/20 12:30 12/24/19 01:47 Dextrose (Dextrose 50%) 25 ml Q30M PRN IV Hypoglycemia 12/13/19 07:15 03/12/20 07:14 Dextrose (Dextrose 50%) 50 ml Q30M PRN IV Hypoglycemia 12/13/19 07:15 03/12/20 07:14 Divalproex Sodium (Depakote) 250 mg EVERY 12 HOURS ORAL 12/22/19 21:00 01/12/20 20:59 12/29/19 21:23 Docusate Sodium (Colace) 100 mg TWICE A DAY ORAL 12/22/19 18:00 01/14/20 17:59 12/29/19 09:01 Insulin Aspart (NovoLOG) EVERY 6 HOURS SUBQ 12/13/19 12:00 03/12/20 11:59 12/29/19 18:40 Lactulose (Cephulac) 20 gm BID ORAL 12/25/19 09:00 01/24/20 08:59 12/29/19 18:38 Levothyroxine Sodium (Synthroid) 100 mcg DAILY IV 12/27/19 09:00 01/11/20 09:29 12/29/19 09:03 Methylprednisolone Sodium Succinate (Solu-MEDROL) 20 mg EVERY 6 HOURS IVP 12/22/19 12:00 03/18/20 11:59 12/30/19 05:26 Nitroglycerin (Ntg) 0.4 mg Q5MIN X 3 DOSES PRN SL CHEST PAIN 12/12/19 12:00 01/10/20 21:44 Pantoprazole (Protonix) 40 mg EVERY 12 HOURS IVP 12/14/19 09:00 01/13/20 08:59 12/29/19 21:22 Phosphorus (Phospha 250 Neutral) 250 mg THREE TIMES A DAY ORAL 12/22/19 13:00 01/14/20 08:59 12/29/19 18:38 Polyethylene Glycol (Miralax) 17 gm BEDTIME ORAL 12/22/19 21:00 01/18/20 20:59 12/28/19 20:27 Polyethylene Glycol (Miralax) 17 gm DAILYPRN PRN ORAL Constipation 12/24/19 19:00 01/23/20 18:59 Quetiapine Fumarate (SEROqueL) 50 mg Q12HR ORAL 12/22/19 21:00 02/05/20 20:59 12/29/19 21:22 Jabari Adams MD Dec 30, 2019 08:31
--- NOTE | 2019-12-30 08:34 | Pulmonology Progress Note ---
Subjective ROS Limited/Unobtainable: Yes Interval Events: Extubated 12/21/19; did well on VENTIMASK; now back on BiPAp Constitutional: Reports: no symptoms HEENT: Repors: no symptoms Respiratory: Reports: no symptoms Cardiovascular: Reports: no symptoms Gastrointestinal/Abdominal: Reports: no symptoms Genitourinary: Reports: no symptoms Allergies: Coded Allergies: LITHIUM (Verified Allergy, Unknown, 02/07/19) All Systems: reviewed and negative except above Objective Last 24 Hour Vital Signs Date Time Temp Pulse Resp B/P (MAP) Pulse Ox O2 Delivery O2 Flow Rate FiO2 12/30/19 08:00 Bi-pap 12/30/19 08:00 97.5 75 19 138/32 (67) 100 12/30/19 08:00 10.0 40 12/30/19 07:24 95 Venturi Mask 8.0 40 12/30/19 07:00 81 19 136/63 (87) 100 12/30/19 06:00 78 23 128/91 (103) 12/30/19 05:00 66 17 117/43 (67) 98 12/30/19 04:00 10.0 40 12/30/19 04:00 Bi-pap 12/30/19 04:00 67 19 118/43 (68) 100 12/30/19 04:00 67 12/30/19 03:00 72 19 123/41 (68) 100 12/30/19 02:00 73 21 119/44 (69) 100 12/30/19 01:00 75 18 116/42 (66) 96 12/30/19 00:00 Bi-pap 12/30/19 00:00 73 12/30/19 00:00 73 19 120/44 (69) 100 12/30/19 00:00 10.0 40 12/29/19 23:51 100 Venturi Mask 8.0 40 12/29/19 23:00 74 19 120/42 (68) 95 12/29/19 22:00 74 19 107/42 (63) 99 12/29/19 21:00 80 19 111/40 (63) 100 12/29/19 20:00 76 12/29/19 20:00 Bi-pap 12/29/19 20:00 98.4 76 21 110/24 (52) 99 12/29/19 20:00 10.0 45 12/29/19 19:47 100 Venturi Mask 10.0 45 12/29/19 19:00 79 17 119/46 (70) 98 12/29/19 18:00 98.3 76 19 105/40 (61) 98 12/29/19 17:00 83 22 116/38 (64) 98 12/29/19 16:00 83 12/29/19 16:00 10.0 45 12/29/19 16:00 84 20 121/48 (72) 100 12/29/19 16:00 Bi-pap 12/29/19 15:00 79 20 114/55 (74) 100 12/29/19 14:00 83 23 133/62 (85) 99 12/29/19 13:00 97.7 79 17 120/52 (74) 100 12/29/19 12:34 97 12/29/19 12:00 10.0 45 12/29/19 12:00 Bi-pap 12/29/19 12:00 82 17 130/56 (80) 99 12/29/19 11:00 79 17 111/53 (72) 100 12/29/19 10:00 71 10 106/41 (62) 100 12/29/19 09:00 67 5 111/42 (65) 100 Intake and Output 12/29/19 12/30/19 19:00 07:00 Intake Total 1725 ml 220 ml Output Total 1830 ml 1240 ml Balance -105 ml -1020 ml Free Water 300 ml IV Total 765 ml Tube Feeding 660 ml 220 ml Output Urine Total 1330 ml 1240 ml Stool Total 500 ml # Bowel Movements 2 1 General Appearance: no acute distress Respiratory: chest wall non-tender, lungs clear Cardiovascular: normal peripheral pulses, normal rate Abdomen: normal bowel sounds Laboratory Tests 12/29/19 11:16: Arterial Blood pH 7.414, Arterial Blood Partial Pressure CO2 74.3*H, Arterial Blood Partial Pressure O2 94.7, Arterial Blood HCO3 46.5*H, Arterial Blood Oxygen Saturation 96.4, Arterial Blood Base Excess 18.6*H, Raphael Test Positive 12/30/19 04:38: White Blood Count 14.9#H, Red Blood Count 3.94L, Hemoglobin 12.7, Hematocrit 39.3, Mean Corpuscular Volume 100H, Mean Corpuscular Hemoglobin 32.3H, Mean Corpuscular Hemoglobin Concent 32.4, Red Cell Distribution Width 13.1, Platelet Count 209, Mean Platelet Volume 8.9, Neutrophils (%) (Auto) 84.2H, Lymphocytes ( %) (Auto) 10.2L, Monocytes (%) (Auto) 5.2, Eosinophils (%) (Auto) 0.0, Basophils (%) (Auto) 0.4, Sodium Level 140, Potassium Level 3.8, Chloride Level 100, Carbon Dioxide Level 35H, Anion Gap 5, Blood Urea Nitrogen 41H, Creatinine 0.8, Estimat Glomerular Filtration Rate > 60, Glucose Level 118H, Calcium Level 9.1, Total Bilirubin 0.6, Aspartate Amino Transf (AST/SGOT) 15, Alanine Aminotransferase (ALT/SGPT) 32, Alkaline Phosphatase 42L, Ammonia 17, Total Protein 6.9, Albumin 3.2L, Globulin 3.7, Albumin/Globulin Ratio 0.9L Current Medications Medications (Trade) Dose Ordered Sig/Angie Route PRN Reason Start Time Stop Time Status Last Admin Dose Admin Acetaminophen (Tylenol) 650 mg Q6H PRN ORAL Mild Pain (Pain Scale 1-3) 12/12/19 12:30 01/11/20 12:29 12/22/19 20:56 Acetaminophen (Tylenol) 1,000 mg Q6H PRN ORAL MODERATE PAIN 12/12/19 12:30 01/11/20 12:29 Amantadine HCl (Symmetrel) 100 mg TWICE A DAY ORAL 12/22/19 18:00 01/11/20 08:59 12/29/19 18:38 Aspirin (ASA) 324 mg DAILY ORAL 12/23/19 09:00 02/04/20 08:59 12/29/19 09:00 Atorvastatin Calcium (Lipitor) 10 mg BEDTIME ORAL 12/22/19 21:00 03/11/20 20:59 12/29/19 21:23 Calcium Carbonate (Os-Octavio) 500 mg THREE TIMES A DAY ORAL 12/22/19 13:00 03/20/20 17:59 12/29/19 18:38 Clonidine HCl (Catapres Tab) 0.1 mg Q6H PRN GT For high BP over 160 systolic 12/15/19 16:30 03/11/20 12:30 12/24/19 01:47 Dextrose (Dextrose 50%) 25 ml Q30M PRN IV Hypoglycemia 12/13/19 07:15 03/12/20 07:14 Dextrose (Dextrose 50%) 50 ml Q30M PRN IV Hypoglycemia 12/13/19 07:15 03/12/20 07:14 Divalproex Sodium (Depakote) 250 mg EVERY 12 HOURS ORAL 12/22/19 21:00 01/12/20 20:59 12/29/19 21:23 Docusate Sodium (Colace) 100 mg TWICE A DAY ORAL 12/22/19 18:00 01/14/20 17:59 12/29/19 09:01 Insulin Aspart (NovoLOG) EVERY 6 HOURS SUBQ 12/13/19 12:00 03/12/20 11:59 12/29/19 18:40 Lactulose (Cephulac) 20 gm BID ORAL 12/25/19 09:00 01/24/20 08:59 12/29/19 18:38 Levothyroxine Sodium (Synthroid) 100 mcg DAILY IV 12/27/19 09:00 01/11/20 09:29 12/29/19 09:03 Methylprednisolone Sodium Succinate (Solu-MEDROL) 20 mg EVERY 6 HOURS IVP 12/22/19 12:00 03/18/20 11:59 12/30/19 05:26 Nitroglycerin (Ntg) 0.4 mg Q5MIN X 3 DOSES PRN SL CHEST PAIN 12/12/19 12:00 01/10/20 21:44 Pantoprazole (Protonix) 40 mg EVERY 12 HOURS IVP 12/14/19 09:00 01/13/20 08:59 12/29/19 21:22 Phosphorus (Phospha 250 Neutral) 250 mg THREE TIMES A DAY ORAL 12/22/19 13:00 01/14/20 08:59 12/29/19 18:38 Polyethylene Glycol (Miralax) 17 gm BEDTIME ORAL 12/22/19 21:00 01/18/20 20:59 12/28/19 20:27 Polyethylene Glycol (Miralax) 17 gm DAILYPRN PRN ORAL Constipation 12/24/19 19:00 01/23/20 18:59 Quetiapine Fumarate (SEROqueL) 50 mg Q12HR ORAL 12/22/19 21:00 02/05/20 20:59 12/29/19 21:22 Assessment/Plan Assessment/Plan IMPRESSION: 1. Respiratory failure. Improved; remains intermittently on BiPPA vs Ventimask 2. Has healthcare-associated pneumonia; is negative for COVID-19. 3. Psych disorder. 4. Obesity. 5. Hypertension. 6. Hypernatremia DISCUSSION: Continue broad spectrum antibiotics. Off olanzepine Has negative COVID-19 swab. On Seroquel; will decrease dose DC steroids Will continue ventimask and use BiPAp as backup Off Lasix and Diamox Has disuresed well Emerita Fan Omar Syed MD Dec 30, 2019 08:34
[2019-12-30] MEDS: Docusate 100mg cap ORAL SCH ×2 (09:00→18:00)
--- NOTE | 2019-12-30 09:10 | Hematology/Onc Progress Note ---
Assessment/Plan Assessment/Plan Assessment and Recs # Lower extremity edema in setting of elevated ddimer --> lower ext duplex ordered to r/o dvt-->neg for dvt --> lovenox sq has been started --> low threshold for v/q or cta r/o pe # Anemia of chronic disease --> hgb 11-->10.-->9->11.9-->10.8->7.8->11->10.8->10.2-->9.6->9.5->10.8-->12 --> no e/o hemolysis --> no bleeding reported --> smear reviewed --> no go bleeding # Leukocytosis r/o infection, likely steriods related --> wbc trend 10==>12-->14 # Respiratory failure with copd exacerbation likely --> pulm toilet --> breathing rx --> steroids prn basis --> pulm eval ---> ABX per is on zosyn->now off # 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 ( combination of moderate aortic regurgitation and severe mitral regurgitation) --> diuresis as per cards --> lasix last time # Severe ascending aortic dilatation --> per Dr Keke campbell # Hypertension # Parkinson disease # Hyperlipidemia # Hypothyroidism # Dementia # Obesity # Schizophrenia --> as per [facility] --> restraints # Dvt ppx lovenox sq/scd's Appreciate eligibility consultant care and alexei Rn Subjective Constitutional: Denies: no symptoms, chills, fever, malaise, weakness, other HEENT: Denies: no symptoms, eye pain, blurred vision, tearing, double vision, ear pain, ear discharge, nose pain, nose congestion, throat pain, throat swelling, mouth pain, mouth swelling, other Cardiovascular: Denies: no symptoms, chest pain, edema, irregular heart rate, lightheadedness, palpitations, syncope, other Respiratory: Denies: no symptoms, cough, shortness of breath, SOB with excertion, SOB at rest, sputum, wheezing, other Neurologic/Psychiatric: Denies: no symptoms, anxiety, depressed, emotional problems, headache, numbness, paresthesia, pre-existing deficit, seizure, tingling, tremors, weakness, other Endocrine: Denies: no symptoms, excessive sweating, flushing, intolerance to cold, intolerance to heat, increased hunger, increased thirst, increased urine, unexplained weight gain, unexplained weight loss, other Allergies: Coded Allergies: LITHIUM (Verified Allergy, Unknown, 02/07/19) Subjective 12/12 labs are reviewed, intubated, with og, somewhat responsive, dw rn 12/13 labs noted, hgb 7.8, tfs ok to start per gi 12/15 icu, restraints, no acute events, hep panel negative, sedated 12/16 no bleeding, in the icu, on abx, in restarints, sleepy, vent 12/17 is on vent, also is on abx, awake, with ogt 12/18 ng placed, hgb 9.6, no bleeding, no night sweats 12/19 labs reviewed, sedated, on vent, nob leeding, meds reviewed 12/20 remains on vent, audra bleeding, meds reviewed, no night sweats 12/22 hgb 9.5, to get zosyn x 1 more day, no night sweats meds reviewed 12/23 labs noted, no bleeding, with fm, no bleeding or night sweats 12/24 no bleeding, labs noted, no night sweats hgb 10, no hemolysis 12/25 remains fatigued, fm, labs are still pending from am 12/26 restraints, v mask, cxr reviewed 12/27 labs reviewed, no bleeding, hgb 10.8, no hemolysis on FM 12/29 remains disoriented on bipap and fm as needed, hgb better Objective Objective Current Medications Medications (Trade) Dose Ordered Sig/Angie Route PRN Reason Start Time Stop Time Status Last Admin Dose Admin Acetaminophen (Tylenol) 650 mg Q6H PRN ORAL Mild Pain (Pain Scale 1-3) 12/12/19 12:30 01/11/20 12:29 12/22/19 20:56 Acetaminophen (Tylenol) 1,000 mg Q6H PRN ORAL MODERATE PAIN 12/12/19 12:30 01/11/20 12:29 Amantadine HCl (Symmetrel) 100 mg TWICE A DAY ORAL 12/22/19 18:00 01/11/20 08:59 12/29/19 18:38 Aspirin (ASA) 324 mg DAILY ORAL 12/23/19 09:00 02/04/20 08:59 12/29/19 09:00 Atorvastatin Calcium (Lipitor) 10 mg BEDTIME ORAL 12/22/19 21:00 03/11/20 20:59 12/29/19 21:23 Calcium Carbonate (Os-Octavio) 500 mg THREE TIMES A DAY ORAL 12/22/19 13:00 03/20/20 17:59 12/29/19 18:38 Clonidine HCl (Catapres Tab) 0.1 mg Q6H PRN GT For high BP over 160 systolic 12/15/19 16:30 03/11/20 12:30 12/24/19 01:47 Dextrose (Dextrose 50%) 25 ml Q30M PRN IV Hypoglycemia 12/13/19 07:15 03/12/20 07:14 Dextrose (Dextrose 50%) 50 ml Q30M PRN IV Hypoglycemia 12/13/19 07:15 03/12/20 07:14 Divalproex Sodium (Depakote) 250 mg EVERY 12 HOURS ORAL 12/22/19 21:00 01/12/20 20:59 12/29/19 21:23 Docusate Sodium (Colace) 100 mg TWICE A DAY ORAL 12/22/19 18:00 01/14/20 17:59 12/29/19 09:01 Insulin Aspart (NovoLOG) EVERY 6 HOURS SUBQ 12/13/19 12:00 03/12/20 11:59 12/29/19 18:40 Lactulose (Cephulac) 20 gm BID ORAL 12/25/19 09:00 01/24/20 08:59 12/29/19 18:38 Levothyroxine Sodium (Synthroid) 100 mcg DAILY IV 12/27/19 09:00 01/11/20 09:29 12/29/19 09:03 Methylprednisolone Sodium Succinate (Solu-MEDROL) 20 mg EVERY 6 HOURS IVP 12/22/19 12:00 03/18/20 11:59 12/30/19 05:26 Nitroglycerin (Ntg) 0.4 mg Q5MIN X 3 DOSES PRN SL CHEST PAIN 12/12/19 12:00 01/10/20 21:44 Pantoprazole (Protonix) 40 mg EVERY 12 HOURS IVP 12/14/19 09:00 01/13/20 08:59 12/29/19 21:22 Phosphorus (Phospha 250 Neutral) 250 mg THREE TIMES A DAY ORAL 12/22/19 13:00 01/14/20 08:59 12/29/19 18:38 Polyethylene Glycol (Miralax) 17 gm BEDTIME ORAL 12/22/19 21:00 01/18/20 20:59 12/28/19 20:27 Polyethylene Glycol (Miralax) 17 gm DAILYPRN PRN ORAL Constipation 12/24/19 19:00 01/23/20 18:59 Quetiapine Fumarate (SEROqueL) 50 mg Q12HR ORAL 12/22/19 21:00 02/05/20 20:59 12/29/19 21:22 Last 24 Hour Vital Signs Date Time Temp Pulse Resp B/P (MAP) Pulse Ox O2 Delivery O2 Flow Rate FiO2 12/30/19 08:00 Bi-pap 12/30/19 08:00 97.5 75 19 138/32 (67) 100 12/30/19 08:00 10.0 40 12/30/19 07:24 95 Venturi Mask 8.0 40 12/30/19 07:00 81 19 136/63 (87) 100 12/30/19 06:00 78 23 128/91 (103) 12/30/19 05:00 66 17 117/43 (67) 98 12/30/19 04:00 10.0 40 12/30/19 04:00 Bi-pap 12/30/19 04:00 67 19 118/43 (68) 100 12/30/19 04:00 67 12/30/19 03:00 72 19 123/41 (68) 100 12/30/19 02:00 73 21 119/44 (69) 100 12/30/19 01:00 75 18 116/42 (66) 96 12/30/19 00:00 Bi-pap 12/30/19 00:00 73 12/30/19 00:00 73 19 120/44 (69) 100 12/30/19 00:00 10.0 40 12/29/19 23:51 100 Venturi Mask 8.0 40 12/29/19 23:00 74 19 120/42 (68) 95 12/29/19 22:00 74 19 107/42 (63) 99 12/29/19 21:00 80 19 111/40 (63) 100 12/29/19 20:00 76 12/29/19 20:00 Bi-pap 12/29/19 20:00 98.4 76 21 110/24 (52) 99 12/29/19 20:00 10.0 45 12/29/19 19:47 100 Venturi Mask 10.0 45 12/29/19 19:00 79 17 119/46 (70) 98 12/29/19 18:00 98.3 76 19 105/40 (61) 98 12/29/19 17:00 83 22 116/38 (64) 98 12/29/19 16:00 83 12/29/19 16:00 10.0 45 12/29/19 16:00 84 20 121/48 (72) 100 12/29/19 16:00 Bi-pap 12/29/19 15:00 79 20 114/55 (74) 100 12/29/19 14:00 83 23 133/62 (85) 99 12/29/19 13:00 97.7 79 17 120/52 (74) 100 12/29/19 12:34 97 12/29/19 12:00 10.0 45 12/29/19 12:00 Bi-pap 12/29/19 12:00 82 17 130/56 (80) 99 12/29/19 11:00 79 17 111/53 (72) 100 12/29/19 10:00 71 10 106/41 (62) 100 12/29/19 09:00 67 5 111/42 (65) 100 12/29/19 08:00 Bi-pap 12/29/19 08:00 71 12/29/19 08:00 45 12/29/19 08:00 98.3 78 14 135/52 (79) 100 12/29/19 07:00 73 14 100 45 12/29/19 07:00 77 11 121/47 (71) 100 12/29/19 07:00 100 Bi-Pap 45 12/29/19 06:00 77 17 120/47 (71) 98 12/29/19 05:00 72 20 112/41 (64) 97 12/29/19 04:00 Bi-pap 12/29/19 04:00 98.3 69 19 113/41 (65) 98 12/29/19 04:00 68 12/29/19 04:00 45 12/29/19 03:17 74 13 97 45 12/29/19 03:00 70 19 104/31 (55) 97 12/29/19 02:00 70 12 112/45 (67) 99 12/29/19 01:00 69 20 108/42 (64) 98 12/29/19 00:00 Bi-pap 12/29/19 00:00 74 12/29/19 00:00 98.5 68 14 108/43 (64) 100 12/29/19 00:00 45 12/28/19 23:00 65 14 116/42 (66) 98 12/28/19 22:32 68 14 99 45 12/28/19 22:30 69 21 112/44 (66) 99 12/28/19 22:00 66 22 99/40 (59) 99 12/28/19 21:00 75 22 108/43 (64) 99 12/28/19 20:00 60 12/28/19 20:00 Bi-pap 12/28/19 20:00 74 12/28/19 20:00 98.3 72 17 105/42 (63) 97 12/28/19 19:00 71 17 109/44 (65) 99 12/28/19 18:59 86 14 98 45 12/28/19 18:58 98 Bi-Pap 45 12/28/19 18:00 72 16 112/44 (66) 94 12/28/19 17:30 68 21 108/37 (60) 95 12/28/19 17:00 79 19 109/38 (61) 97 12/28/19 16:00 98.9 78 25 111/39 (63) 98 12/28/19 16:00 Bi-pap 12/28/19 16:00 82 12/28/19 16:00 60 12/28/19 15:30 78 20 93/35 (54) 97 12/28/19 15:00 82 21 122/43 (69) 12/28/19 14:55 86 14 98 45 12/28/19 14:00 80 15 105/45 (65) 12/28/19 13:30 79 15 110/43 (65) 12/28/19 13:00 79 11 110/38 (62) 97 12/28/19 12:00 60 12/28/19 12:00 Bi-pap 12/28/19 12:00 98.9 75 11 109/43 (65) 95 12/28/19 12:00 71 12/28/19 11:30 74 15 104/42 (62) 93 12/28/19 11:00 82 22 102/38 (59) 99 12/28/19 11:00 60 12/28/19 10:49 83 15 97 45 12/28/19 10:30 87 22 119/47 (71) 90 12/28/19 10:00 83 22 116/39 (64) 93 12/28/19 09:51 88 22 117/42 (67) 93 12/28/19 09:48 89 22 82/27 (45) 94 12/28/19 09:23 93 26 92/21 (44) 96 Intake and Output 12/29/19 12/30/19 19:00 07:00 Intake Total 1725 ml 220 ml Output Total 1830 ml 1240 ml Balance -105 ml -1020 ml Free Water 300 ml IV Total 765 ml Tube Feeding 660 ml 220 ml Output Urine Total 1330 ml 1240 ml Stool Total 500 ml # Bowel Movements 2 1 Labs Test 12/27/19 12:14 12/27/19 17:06 12/28/19 00:06 12/28/19 06:26 POC Whole Blood Glucose 150 MG/DL (74-106) 122 MG/DL (74-106) 197 MG/DL (74-106) Test 12/28/19 08:50 12/28/19 10:35 12/28/19 13:01 12/28/19 18:09 White Blood Count 14.1 K/UL (4.8-10.8) Red Blood Count 3.82 M/UL (4.20-5.40) Hemoglobin 12.3 G/DL (12.0-16.0) Hematocrit 38.9 % (37.0-47.0) Mean Corpuscular Volume 102 FL (80-99) Mean Corpuscular Hemoglobin 32.2 PG (27.0-31.0) Mean Corpuscular Hemoglobin Concent 31.6 G/DL (32.0-36.0) Red Cell Distribution Width 13.2 % (11.6-14.8) Platelet Count 214 K/UL (150-450) Mean Platelet Volume 8.1 FL (6.5-10.1) Neutrophils (%) (Auto) 81.8 % (45.0-75.0) Lymphocytes (%) (Auto) 10.5 % (20.0-45.0) Monocytes (%) (Auto) 7.3 % (1.0-10.0) Eosinophils (%) (Auto) 0.0 % (0.0-3.0) Basophils (%) (Auto) 0.4 % (0.0-2.0) Sodium Level 144 MMOL/L (136-145) Potassium Level 3.6 MMOL/L (3.5-5.1) Chloride Level 96 MMOL/L (98-107) Carbon Dioxide Level > 45 MMOL/L (21-32) Blood Urea Nitrogen 35 mg/dL (7-18) Creatinine 0.9 MG/DL (0.55-1.30) Estimat Glomerular Filtration Rate > 60 mL/min (>60) Glucose Level 159 MG/DL (74-106) Calcium Level 8.6 MG/DL (8.5-10.1) Phosphorus Level 3.5 MG/DL (2.5-4.9) Magnesium Level 1.9 MG/DL (1.8-2.4) Total Bilirubin 0.7 MG/DL (0.2-1.0) Direct Bilirubin 0.2 MG/DL (0.0-0.3) Aspartate Amino Transf (AST/SGOT) 28 U/L (15-37) Alanine Aminotransferase (ALT/SGPT) 44 U/L (12-78) Alkaline Phosphatase 41 U/L (46-116) Total Protein 7.2 G/DL (6.4-8.2) Albumin 3.4 G/DL (3.4-5.0) Valproic Acid (Depakene) Level 12 MCG/ML (50-100) Arterial Blood pH 7.428 (7.350-7.450) Arterial Blood Partial Pressure CO2 80.2 mmHg (35.0-45.0) Arterial Blood Partial Pressure O2 65.9 mmHg (75.0-100.0) Arterial Blood HCO3 51.8 mmol/L (22.0-26.0) Arterial Blood Oxygen Saturation 91.7 % (95-100) Arterial Blood Base Excess 23.2 (-2-2) Raphael Test Positive Test 12/28/19 23:07 12/29/19 03:20 12/29/19 05:25 12/29/19 08:26 POC Whole Blood Glucose 171 MG/DL (74-106) 187 MG/DL (74-106) White Blood Count 9.1 K/UL (4.8-10.8) Red Blood Count 3.23 M/UL (4.20-5.40) Hemoglobin 10.4 G/DL (12.0-16.0) Hematocrit 32.8 % (37.0-47.0) Mean Corpuscular Volume 102 FL (80-99) Mean Corpuscular Hemoglobin 32.2 PG (27.0-31.0) Mean Corpuscular Hemoglobin Concent 31.7 G/DL (32.0-36.0) Red Cell Distribution Width 12.9 % (11.6-14.8) Platelet Count 185 K/UL (150-450) Mean Platelet Volume 7.3 FL (6.5-10.1) Neutrophils (%) (Auto) 84.2 % (45.0-75.0) Lymphocytes (%) (Auto) 9.4 % (20.0-45.0) Monocytes (%) (Auto) 5.9 % (1.0-10.0) Eosinophils (%) (Auto) 0.2 % (0.0-3.0) Basophils (%) (Auto) 0.3 % (0.0-2.0) Sodium Level 142 MMOL/L (136-145) Potassium Level 3.2 MMOL/L (3.5-5.1) Chloride Level 98 MMOL/L (98-107) Carbon Dioxide Level 44 MMOL/L (21-32) Anion Gap 0 mmol/L (5-15) Blood Urea Nitrogen 39 mg/dL (7-18) Creatinine 0.9 MG/DL (0.55-1.30) Estimat Glomerular Filtration Rate > 60 mL/min (>60) Glucose Level 193 MG/DL (74-106) Calcium Level 8.3 MG/DL (8.5-10.1) Phosphorus Level 3.5 MG/DL (2.5-4.9) Magnesium Level 1.9 MG/DL (1.8-2.4) Total Bilirubin 0.5 MG/DL (0.2-1.0) Aspartate Amino Transf (AST/SGOT) 13 U/L (15-37) Alanine Aminotransferase (ALT/SGPT) 30 U/L (12-78) Alkaline Phosphatase 39 U/L (46-116) C-Reactive Protein, Quantitative 1.8 mg/dL (0.00-0.90) Pro-B-Type Natriuretic Peptide 23263 pg/mL (0-125) Total Protein 6.4 G/DL (6.4-8.2) Albumin 2.9 G/DL (3.4-5.0) Globulin 3.5 g/dL Albumin/Globulin Ratio 0.8 (1.0-2.7) Arterial Blood pH 7.453 (7.350-7.450) Arterial Blood Partial Pressure CO2 66.6 mmHg (35.0-45.0) Arterial Blood Partial Pressure O2 73.6 mmHg (75.0-100.0) Arterial Blood HCO3 45.6 mmol/L (22.0-26.0) Arterial Blood Oxygen Saturation 94.4 % (95-100) Arterial Blood Base Excess 18.5 (-2-2) Raphael Test Positive Test 12/29/19 11:16 12/30/19 04:38 Arterial Blood pH 7.414 (7.350-7.450) Arterial Blood Partial Pressure CO2 74.3 mmHg (35.0-45.0) Arterial Blood Partial Pressure O2 94.7 mmHg (75.0-100.0) Arterial Blood HCO3 46.5 mmol/L (22.0-26.0) Arterial Blood Oxygen Saturation 96.4 % (95-100) Arterial Blood Base Excess 18.6 (-2-2) Raphael Test Positive White Blood Count 14.9 K/UL (4.8-10.8) Red Blood Count 3.94 M/UL (4.20-5.40) Hemoglobin 12.7 G/DL (12.0-16.0) Hematocrit 39.3 % (37.0-47.0) Mean Corpuscular Volume 100 FL (80-99) Mean Corpuscular Hemoglobin 32.3 PG (27.0-31.0) Mean Corpuscular Hemoglobin Concent 32.4 G/DL (32.0-36.0) Red Cell Distribution Width 13.1 % (11.6-14.8) Platelet Count 209 K/UL (150-450) Mean Platelet Volume 8.9 FL (6.5-10.1) Neutrophils (%) (Auto) 84.2 % (45.0-75.0) Lymphocytes (%) (Auto) 10.2 % (20.0-45.0) Monocytes (%) (Auto) 5.2 % (1.0-10.0) Eosinophils (%) (Auto) 0.0 % (0.0-3.0) Basophils (%) (Auto) 0.4 % (0.0-2.0) Sodium Level 140 MMOL/L (136-145) Potassium Level 3.8 MMOL/L (3.5-5.1) Chloride Level 100 MMOL/L (98-107) Carbon Dioxide Level 35 MMOL/L (21-32) Anion Gap 5 mmol/L (5-15) Blood Urea Nitrogen 41 mg/dL (7-18) Creatinine 0.8 MG/DL (0.55-1.30) Estimat Glomerular Filtration Rate > 60 mL/min (>60) Glucose Level 118 MG/DL (74-106) Calcium Level 9.1 MG/DL (8.5-10.1) Total Bilirubin 0.6 MG/DL (0.2-1.0) Aspartate Amino Transf (AST/SGOT) 15 U/L (15-37) Alanine Aminotransferase (ALT/SGPT) 32 U/L (12-78) Alkaline Phosphatase 42 U/L (46-116) Ammonia 17 umol/L (11-32) Total Protein 6.9 G/DL (6.4-8.2) Albumin 3.2 G/DL (3.4-5.0) Globulin 3.7 g/dL Albumin/Globulin Ratio 0.9 (1.0-2.7) Height (Feet): 5 Height (Inches): 7.00 Weight (Pounds): 198 Objective Vitals: reviewed General: NAD HEENT: nc, at ++ngt, v mask+ Neck: supple Chest: decreased breath sounds bilaterally Cardiovascular: RRR, no s3, s4 Abdomen: soft, nontender, nd Extremities: 1-2 + edema, scd's Neuro: nonverbal : iman+ Frank Escobar MD Dec 30, 2019 09:10
--- NOTE | 2019-12-30 09:57 | Infectious Diseases Prog Note ---
Assessment/Plan Assessment/Plan IMPRESSION: COPD exacerbation, Pneumonia, COID19 X 2: negative Acute respiratory failure with hypercapnia Dementia, Parkinson, Mitral valve regurgitation, Hypertension, Hypothyroidism. 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 RECOMMENDATION: Observe off antibiotic Subjective ROS Limited/Unobtainable: Yes Neurologic: Reports: confusion, other - on restraint Allergies: Coded Allergies: LITHIUM (Verified Allergy, Unknown, 02/07/19) Objective Last 24 Hour Vital Signs Date Time Temp Pulse Resp B/P (MAP) Pulse Ox O2 Delivery O2 Flow Rate FiO2 12/30/19 09:00 75 21 132/40 (70) 99 12/30/19 08:00 Bi-pap 12/30/19 08:00 97.5 75 19 138/32 (67) 100 12/30/19 08:00 10.0 40 12/30/19 07:24 95 Venturi Mask 8.0 40 12/30/19 07:00 81 19 136/63 (87) 100 12/30/19 06:00 78 23 128/91 (103) 12/30/19 05:00 66 17 117/43 (67) 98 12/30/19 04:00 10.0 40 12/30/19 04:00 Bi-pap 12/30/19 04:00 67 19 118/43 (68) 100 12/30/19 04:00 67 12/30/19 03:00 72 19 123/41 (68) 100 12/30/19 02:00 73 21 119/44 (69) 100 12/30/19 01:00 75 18 116/42 (66) 96 12/30/19 00:00 Bi-pap 12/30/19 00:00 73 12/30/19 00:00 73 19 120/44 (69) 100 12/30/19 00:00 10.0 40 12/29/19 23:51 100 Venturi Mask 8.0 40 12/29/19 23:00 74 19 120/42 (68) 95 12/29/19 22:00 74 19 107/42 (63) 99 12/29/19 21:00 80 19 111/40 (63) 100 12/29/19 20:00 76 12/29/19 20:00 Bi-pap 12/29/19 20:00 98.4 76 21 110/24 (52) 99 12/29/19 20:00 10.0 45 7/18/20 19:47 100 Venturi Mask 10.0 45 12/29/19 19:00 79 17 119/46 (70) 98 12/29/19 18:00 98.3 76 19 105/40 (61) 98 12/29/19 17:00 83 22 116/38 (64) 98 12/29/19 16:00 83 12/29/19 16:00 10.0 45 12/29/19 16:00 84 20 121/48 (72) 100 12/29/19 16:00 Bi-pap 12/29/19 15:00 79 20 114/55 (74) 100 12/29/19 14:00 83 23 133/62 (85) 99 12/29/19 13:00 97.7 79 17 120/52 (74) 100 12/29/19 12:34 97 12/29/19 12:00 10.0 45 12/29/19 12:00 Bi-pap 12/29/19 12:00 82 17 130/56 (80) 99 12/29/19 11:00 79 17 111/53 (72) 100 12/29/19 10:00 71 10 106/41 (62) 100 Height (Feet): 5 Height (Inches): 7.00 Weight (Pounds): 198 HEENT: mucous membranes moist Respiratory/Chest: decreased breath sounds, other - oxygen by mask Cardiovascular: normal rate Abdomen: soft, non tender Extremities: no edema Neurologic/Psychiatric: disoriented, other - opens eyes Laboratory Tests Test 12/29/19 11:16 12/30/19 04:38 Arterial Blood pH 7.414 (7.350-7.450) Arterial Blood Partial Pressure CO2 74.3 mmHg (35.0-45.0) *H Arterial Blood Partial Pressure O2 94.7 mmHg (75.0-100.0) Arterial Blood HCO3 46.5 mmol/L (22.0-26.0) *H Arterial Blood Oxygen Saturation 96.4 % (95-100) Arterial Blood Base Excess 18.6 (-2-2) *H Raphael Test Positive White Blood Count 14.9 K/UL (4.8-10.8) #H Red Blood Count 3.94 M/UL (4.20-5.40) L Hemoglobin 12.7 G/DL (12.0-16.0) Hematocrit 39.3 % (37.0-47.0) Mean Corpuscular Volume 100 FL (80-99) H Mean Corpuscular Hemoglobin 32.3 PG (27.0-31.0) H Mean Corpuscular Hemoglobin Concent 32.4 G/DL (32.0-36.0) Red Cell Distribution Width 13.1 % (11.6-14.8) Platelet Count 209 K/UL (150-450) Mean Platelet Volume 8.9 FL (6.5-10.1) Neutrophils (%) (Auto) 84.2 % (45.0-75.0) H Lymphocytes (%) (Auto) 10.2 % (20.0-45.0) L Monocytes (%) (Auto) 5.2 % (1.0-10.0) Eosinophils (%) (Auto) 0.0 % (0.0-3.0) Basophils (%) (Auto) 0.4 % (0.0-2.0) Sodium Level 140 MMOL/L (136-145) Potassium Level 3.8 MMOL/L (3.5-5.1) Chloride Level 100 MMOL/L (98-107) Carbon Dioxide Level 35 MMOL/L (21-32) H Anion Gap 5 mmol/L (5-15) Blood Urea Nitrogen 41 mg/dL (7-18) H Creatinine 0.8 MG/DL (0.55-1.30) Estimat Glomerular Filtration Rate > 60 mL/min (>60) Glucose Level 118 MG/DL (74-106) H Calcium Level 9.1 MG/DL (8.5-10.1) Total Bilirubin 0.6 MG/DL (0.2-1.0) Aspartate Amino Transf (AST/SGOT) 15 U/L (15-37) Alanine Aminotransferase (ALT/SGPT) 32 U/L (12-78) Alkaline Phosphatase 42 U/L (46-116) L Ammonia 17 umol/L (11-32) Total Protein 6.9 G/DL (6.4-8.2) Albumin 3.2 G/DL (3.4-5.0) L Globulin 3.7 g/dL Albumin/Globulin Ratio 0.9 (1.0-2.7) L Current Medications Medications (Trade) Dose Ordered Sig/Angie Route PRN Reason Start Time Stop Time Status Last Admin Dose Admin Acetaminophen (Tylenol) 650 mg Q6H PRN ORAL Mild Pain (Pain Scale 1-3) 12/12/19 12:30 01/11/20 12:29 12/22/19 20:56 Acetaminophen (Tylenol) 1,000 mg Q6H PRN ORAL MODERATE PAIN 12/12/19 12:30 01/11/20 12:29 Amantadine HCl (Symmetrel) 100 mg TWICE A DAY ORAL 12/22/19 18:00 01/11/20 08:59 12/29/19 18:38 Aspirin (ASA) 324 mg DAILY ORAL 12/23/19 09:00 02/04/20 08:59 12/29/19 09:00 Atorvastatin Calcium (Lipitor) 10 mg BEDTIME ORAL 12/22/19 21:00 03/11/20 20:59 12/29/19 21:23 Calcium Carbonate (Os-Octavio) 500 mg THREE TIMES A DAY ORAL 12/22/19 13:00 03/20/20 17:59 12/29/19 18:38 Clonidine HCl (Catapres Tab) 0.1 mg Q6H PRN GT For high BP over 160 systolic 12/15/19 16:30 03/11/20 12:30 12/24/19 01:47 Dextrose (Dextrose 50%) 25 ml Q30M PRN IV Hypoglycemia 12/13/19 07:15 03/12/20 07:14 Dextrose (Dextrose 50%) 50 ml Q30M PRN IV Hypoglycemia 12/13/19 07:15 03/12/20 07:14 Divalproex Sodium (Depakote) 250 mg EVERY 12 HOURS ORAL 12/22/19 21:00 01/12/20 20:59 12/29/19 21:23 Docusate Sodium (Colace) 100 mg TWICE A DAY ORAL 12/22/19 18:00 01/14/20 17:59 12/29/19 09:01 Insulin Aspart (NovoLOG) EVERY 6 HOURS SUBQ 12/13/19 12:00 03/12/20 11:59 12/29/19 18:40 Lactulose (Cephulac) 20 gm BID ORAL 12/25/19 09:00 01/24/20 08:59 12/29/19 18:38 Levothyroxine Sodium (Synthroid) 100 mcg DAILY IV 12/27/19 09:00 01/11/20 09:29 12/29/19 09:03 Methylprednisolone Sodium Succinate (Solu-MEDROL) 20 mg EVERY 6 HOURS IVP 12/22/19 12:00 03/18/20 11:59 12/30/19 05:26 Nitroglycerin (Ntg) 0.4 mg Q5MIN X 3 DOSES PRN SL CHEST PAIN 12/12/19 12:00 01/10/20 21:44 Pantoprazole (Protonix) 40 mg EVERY 12 HOURS IVP 12/14/19 09:00 01/13/20 08:59 12/29/19 21:22 Phosphorus (Phospha 250 Neutral) 250 mg THREE TIMES A DAY ORAL 12/22/19 13:00 01/14/20 08:59 12/29/19 18:38 Polyethylene Glycol (Miralax) 17 gm BEDTIME ORAL 12/22/19 21:00 01/18/20 20:59 12/28/19 20:27 Polyethylene Glycol (Miralax) 17 gm DAILYPRN PRN ORAL Constipation 12/24/19 19:00 01/23/20 18:59 Quetiapine Fumarate (SEROqueL) 50 mg Q12HR ORAL 12/22/19 21:00 02/05/20 20:59 12/29/19 21:22 Lei Chan MD Dec 30, 2019 09:57
[2019-12-30] MEDS: Phospha 250 Neutral tab ORAL SCH (09:59)
[2019-12-30] MEDS: Amantadine 100mg cap ORAL SCH ×2 (09:59→18:20)
[2019-12-30] MEDS: Os-Cal (Oyster Shell) 500mg tab ORAL SCH ×3 (09:59→18:20)
[2019-12-30] MEDS: Aspirin Baby 81mg ORAL SCH (09:59)
[2019-12-30] MEDS: Lactulose 20gm/30ml UDC ORAL SCH ×2 (09:59→18:00)
[2019-12-30] MEDS: Pantoprazole Inj IVP SCH ×2 (10:00→20:48)
--- NOTE | 2019-12-30 10:20 | NUR ---
NURSE NOTES: Medications given as administered, no adverse reactions noted. Patient is afebrile and resting in bed comfortably. No signs of acute distress. Will continue to monitor.
--- NOTE | 2019-12-30 10:55 | Nephrology Progress Note ---
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 Respiratory distress most likely secondary to pulmonary edema and or COPD exacerbation. Hyponatremia. Obese. Hypothyroidism. Elevated d-dimer. Elevated liver enzymes Plan December 29: Lab reviewed. Renal parameters stable. Now on Venturi mask. CO2 lower to 35. December 28: Lab reviewed: CO2 remains high: On BiPAP. Continue per pulmonary. Stable from renal standpoint of view. December 27: Lab reviewed. Continues to retain CO2. On Venturi mask. Continue per pulmonary. Stable from renal standpoint of view. December 26: Lab reviewed. ABG reviewed. Patient retaining CO2. Remains on BiPAP. Continue per pulmonary. Stable from renal standpoint of view. December 25: Lab reviewed. TSH remains high. On nonrebreathing mask. Renal parameters stable. Synthroid dose increased. IV fluids stopped. December 24: Lab reviewed. Still on BiPAP. Renal parameters stable. December 23: Lab reviewed. Remains on BiPAP. Agitated at times. ABG ordered. Serum sodium improved. December 22: Lab reviewed. On BiPAP. Stable from renal standpoint of view. Will follow serum sodium. December 21: Labs reviewed. On nonrebreather mask. D5W 50 cc an hour started for hypernatremia. Magnesium supplement given. Continue per consultants. December 20: Patient on weaning trial. No labs done today. Discussed with RN. Continue per consultants. December 19: Patient remains intubated. Renal parameters stable. Discussed with RN. Continue per consultants. December 18: Patient self extubated yesterday however was reintubated. Remains stable from renal standpoint of view. Discussed with RN. Discussed with Dr. Myers. December 17: Remains intubated. Remains full code. Failed weaning. Stable from renal standpoint of view. Continue per consultants. Discussed with DARREL Monten[place]ro. December 16: Remains intubated. Full code. Weaning in process. Stable from renal standpoint of view. December 15: Remains vented. Electrolytes improved. Continue per consultants. December 14: Patient remains in ICU intubated on ventilator. Potassium low. Phosphorus low. Supplements given. Renal parameters are stable. Continue per consultants. December 13: Patient remains in ICU intubated on ventilator. Discussed with RN. Labs reviewed. Creatinine 1.3. Potassium supplements given. Mag sulfate IV 2 g given. Continue per consultants. December 12: Patient in ICU. Intubated on ventilator. Discussed with RN. Labs reviewed. Potassium supplement given. Continue per consultants. Arterial blood gas indicative of CO2 retention. Patient on the way to ICU for intubation. Continue per pulmonary management. Pulmonary support, Check 2D echocardiogram. Previous 2D echo had a 50% ejection fraction. Keep blood sugar and blood pressure in check. Thyroid panel. Monitor electrolytes and renal parameters. Afterload reduction. Diuretics Monitor serum calcium, supplements via NG tube. Per orders. Subjective ROS Limited/Unobtainable: Yes Objective Objective Last 24 Hour Vital Signs Date Time Temp Pulse Resp B/P (MAP) Pulse Ox O2 Delivery O2 Flow Rate FiO2 12/30/19 09:00 75 21 132/40 (70) 99 12/30/19 08:00 Bi-pap 12/30/19 08:00 97.5 75 19 138/32 (67) 100 12/30/19 08:00 10.0 40 12/30/19 07:24 95 Venturi Mask 8.0 40 12/30/19 07:00 81 19 136/63 (87) 100 12/30/19 06:00 78 23 128/91 (103) 12/30/19 05:00 66 17 117/43 (67) 98 12/30/19 04:00 10.0 40 12/30/19 04:00 Bi-pap 12/30/19 04:00 67 19 118/43 (68) 100 12/30/19 04:00 67 12/30/19 03:00 72 19 123/41 (68) 100 12/30/19 02:00 73 21 119/44 (69) 100 12/30/19 01:00 75 18 116/42 (66) 96 12/30/19 00:00 Bi-pap 12/30/19 00:00 73 12/30/19 00:00 73 19 120/44 (69) 100 12/30/19 00:00 10.0 40 12/29/19 23:51 100 Venturi Mask 8.0 40 12/29/19 23:00 74 19 120/42 (68) 95 12/29/19 22:00 74 19 107/42 (63) 99 12/29/19 21:00 80 19 111/40 (63) 100 12/29/19 20:00 76 12/29/19 20:00 Bi-pap 12/29/19 20:00 98.4 76 21 110/24 (52) 99 12/29/19 20:00 10.0 45 12/29/19 19:47 100 Venturi Mask 10.0 45 12/29/19 19:00 79 17 119/46 (70) 98 12/29/19 18:00 98.3 76 19 105/40 (61) 98 12/29/19 17:00 83 22 116/38 (64) 98 12/29/19 16:00 83 12/29/19 16:00 10.0 45 12/29/19 16:00 84 20 121/48 (72) 100 12/29/19 16:00 Bi-pap 12/29/19 15:00 79 20 114/55 (74) 100 12/29/19 14:00 83 23 133/62 (85) 99 12/29/19 13:00 97.7 79 17 120/52 (74) 100 12/29/19 12:34 97 12/29/19 12:00 10.0 45 12/29/19 12:00 Bi-pap 12/29/19 12:00 82 17 130/56 (80) 99 12/29/19 11:00 79 17 111/53 (72) 100 Intake and Output 12/29/19 12/30/19 19:00 07:00 Intake Total 1725 ml 220 ml Output Total 1830 ml 1240 ml Balance -105 ml -1020 ml Free Water 300 ml IV Total 765 ml Tube Feeding 660 ml 220 ml Output Urine Total 1330 ml 1240 ml Stool Total 500 ml # Bowel Movements 2 1 Laboratory Tests 12/29/19 11:16: Arterial Blood pH 7.414, Arterial Blood Partial Pressure CO2 74.3*H, Arterial Blood Partial Pressure O2 94.7, Arterial Blood HCO3 46.5*H, Arterial Blood Oxygen Saturation 96.4, Arterial Blood Base Excess 18.6*H, Raphael Test Positive 12/30/19 04:38: White Blood Count 14.9#H, Red Blood Count 3.94L, Hemoglobin 12.7, Hematocrit 39.3, Mean Corpuscular Volume 100H, Mean Corpuscular Hemoglobin 32.3H, Mean Corpuscular Hemoglobin Concent 32.4, Red Cell Distribution Width 13.1, Platelet Count 209, Mean Platelet Volume 8.9, Neutrophils (%) (Auto) 84.2H, Lymphocytes ( %) (Auto) 10.2L, Monocytes (%) (Auto) 5.2, Eosinophils (%) (Auto) 0.0, Basophils (%) (Auto) 0.4, Sodium Level 140, Potassium Level 3.8, Chloride Level 100, Carbon Dioxide Level 35H, Anion Gap 5, Blood Urea Nitrogen 41H, Creatinine 0.8, Estimat Glomerular Filtration Rate > 60, Glucose Level 118H, Calcium Level 9.1, Total Bilirubin 0.6, Aspartate Amino Transf (AST/SGOT) 15, Alanine Aminotransferase (ALT/SGPT) 32, Alkaline Phosphatase 42L, Ammonia 17, Total Protein 6.9, Albumin 3.2L, Globulin 3.7, Albumin/Globulin Ratio 0.9L Height (Feet): 5 Height (Inches): 7.00 Weight (Pounds): 198 General Appearance: no apparent distress, lethargic Cardiovascular: normal rate - Rate 75-85 Respiratory/Chest: decreased breath sounds Abdomen: distended Bryan Ochoa MD Dec 30, 2019 10:55
[2019-12-30] MEDS ORDERED: NS 275ml ONE (13:20)
--- NOTE | 2019-12-30 16:07 | General Progress Note ---
Assessment/Plan Status: progressing, unchanged Assessment/Plan: Assessment - Resp failure - r/o COVID -- x 2 negative - COPD - HTN - Anemia - Abnormal LFT Recommendations - Continue TF - Elevate HOB - abx - follow labs - f/u hepatitis serologies - abd ultrasound next week Subjective Allergies: Coded Allergies: LITHIUM (Verified Allergy, Unknown, 02/07/19) All Systems: reviewed and negative except above Subjective Above noted tolerating TF on O2 mask Objective Last 24 Hour Vital Signs Date Time Temp Pulse Resp B/P (MAP) Pulse Ox O2 Delivery O2 Flow Rate FiO2 12/30/19 15:00 73 21 120/45 (70) 100 12/30/19 14:00 71 19 121/44 (69) 100 12/30/19 13:00 69 19 118/43 (68) 99 12/30/19 12:24 66 12/30/19 12:00 Bi-pap 12/30/19 12:00 98.5 70 16 107/42 (63) 99 12/30/19 12:00 10.0 40 12/30/19 11:00 75 17 116/37 (63) 97 12/30/19 10:00 74 20 119/46 (70) 100 12/30/19 09:00 75 21 132/40 (70) 99 12/30/19 08:00 Bi-pap 12/30/19 08:00 97.5 75 19 138/32 (67) 100 12/30/19 08:00 10.0 40 12/30/19 07:24 95 Venturi Mask 8.0 40 12/30/19 07:12 78 12/30/19 07:00 81 19 136/63 (87) 100 12/30/19 06:00 78 23 128/91 (103) 12/30/19 05:00 66 17 117/43 (67) 98 12/30/19 04:00 10.0 40 12/30/19 04:00 Bi-pap 12/30/19 04:00 67 19 118/43 (68) 100 12/30/19 04:00 67 12/30/19 03:00 72 19 123/41 (68) 100 12/30/19 02:00 73 21 119/44 (69) 100 12/30/19 01:00 75 18 116/42 (66) 96 7/19/20 00:00 Bi-pap 12/30/19 00:00 73 12/30/19 00:00 73 19 120/44 (69) 100 12/30/19 00:00 10.0 40 12/29/19 23:51 100 Venturi Mask 8.0 40 12/29/19 23:00 74 19 120/42 (68) 95 12/29/19 22:00 74 19 107/42 (63) 99 12/29/19 21:00 80 19 111/40 (63) 100 12/29/19 20:00 76 12/29/19 20:00 Bi-pap 12/29/19 20:00 98.4 76 21 110/24 (52) 99 12/29/19 20:00 10.0 45 12/29/19 19:47 100 Venturi Mask 10.0 45 12/29/19 19:00 79 17 119/46 (70) 98 12/29/19 18:00 98.3 76 19 105/40 (61) 98 12/29/19 17:00 83 22 116/38 (64) 98 Intake and Output 12/29/19 12/30/19 18:59 06:59 Intake Total 1580 ml 425 ml Output Total 1480 ml 1850 ml Balance 100 ml -1425 ml Free Water 150 ml 150 ml IV Total 770 ml Tube Feeding 660 ml 275 ml Output Urine Total 1480 ml 1350 ml Stool Total 500 ml # Bowel Movements 3 Laboratory Tests 12/30/19 04:38: White Blood Count 14.9#H, Red Blood Count 3.94L, Hemoglobin 12.7, Hematocrit 39.3, Mean Corpuscular Volume 100H, Mean Corpuscular Hemoglobin 32.3H, Mean Corpuscular Hemoglobin Concent 32.4, Red Cell Distribution Width 13.1, Platelet Count 209, Mean Platelet Volume 8.9, Neutrophils (%) (Auto) 84.2H, Lymphocytes ( %) (Auto) 10.2L, Monocytes (%) (Auto) 5.2, Eosinophils (%) (Auto) 0.0, Basophils (%) (Auto) 0.4, Sodium Level 140, Potassium Level 3.8, Chloride Level 100, Carbon Dioxide Level 35H, Anion Gap 5, Blood Urea Nitrogen 41H, Creatinine 0.8, Estimat Glomerular Filtration Rate > 60, Glucose Level 118H, Calcium Level 9.1, Total Bilirubin 0.6, Aspartate Amino Transf (AST/SGOT) 15, Alanine Aminotransferase (ALT/SGPT) 32, Alkaline Phosphatase 42L, Ammonia 17, Total Protein 6.9, Albumin 3.2L, Globulin 3.7, Albumin/Globulin Ratio 0.9L Height (Feet): 5 Height (Inches): 7.00 Weight (Pounds): 198 Objective Elderly woman in ICU NAD CTA RR abd Aria Stoner MD Dec 30, 2019 16:07
--- NOTE | 2019-12-30 16:09 | NUR ---
NURSE NOTES: Patient seen and assessed by Dr. Davies.
--- NOTE | 2019-12-30 16:25 | Cardiac Electrophysiology PN ---
Assessment/Plan Assessment/Plan 1. Recurrent respiratory failure with BNP of more than 19,000. Echo showed normal EF. On Venturi Mask. Off Lasix 2. Bradycardia requiring atropine due to respiratory failure . No further 3. Bilateral UE edema. Venous Duplex was negative on 12/12/19. 4. History of Parkinson disease. 5. Hyperlipidemia. YOSELYN RN Subjective Subjective On Venturi Mask in ICU. Transfer to SDU pending Objective Last 24 Hour Vital Signs Date Time Temp Pulse Resp B/P (MAP) Pulse Ox O2 Delivery O2 Flow Rate FiO2 12/30/19 15:00 73 21 120/45 (70) 100 12/30/19 14:00 71 19 121/44 (69) 100 12/30/19 13:00 69 19 118/43 (68) 99 12/30/19 12:24 66 12/30/19 12:00 Bi-pap 12/30/19 12:00 98.5 70 16 107/42 (63) 99 12/30/19 12:00 10.0 40 12/30/19 11:00 75 17 116/37 (63) 97 12/30/19 10:00 74 20 119/46 (70) 100 12/30/19 09:00 75 21 132/40 (70) 99 12/30/19 08:00 Bi-pap 12/30/19 08:00 97.5 75 19 138/32 (67) 100 12/30/19 08:00 10.0 40 12/30/19 07:24 95 Venturi Mask 8.0 40 12/30/19 07:12 78 12/30/19 07:00 81 19 136/63 (87) 100 12/30/19 06:00 78 23 128/91 (103) 12/30/19 05:00 66 17 117/43 (67) 98 12/30/19 04:00 10.0 40 12/30/19 04:00 Bi-pap 12/30/19 04:00 67 19 118/43 (68) 100 12/30/19 04:00 67 12/30/19 03:00 72 19 123/41 (68) 100 12/30/19 02:00 73 21 119/44 (69) 100 12/30/19 01:00 75 18 116/42 (66) 96 12/30/19 00:00 Bi-pap 12/30/19 00:00 73 7/19/20 00:00 73 19 120/44 (69) 100 12/30/19 00:00 10.0 40 12/29/19 23:51 100 Venturi Mask 8.0 40 12/29/19 23:00 74 19 120/42 (68) 95 12/29/19 22:00 74 19 107/42 (63) 99 12/29/19 21:00 80 19 111/40 (63) 100 12/29/19 20:00 76 12/29/19 20:00 Bi-pap 12/29/19 20:00 98.4 76 21 110/24 (52) 99 12/29/19 20:00 10.0 45 12/29/19 19:47 100 Venturi Mask 10.0 45 12/29/19 19:00 79 17 119/46 (70) 98 12/29/19 18:00 98.3 76 19 105/40 (61) 98 12/29/19 17:00 83 22 116/38 (64) 98 Intake and Output 12/29/19 12/30/19 19:00 07:00 Intake Total 1725 ml 220 ml Output Total 1830 ml 1240 ml Balance -105 ml -1020 ml Free Water 300 ml IV Total 765 ml Tube Feeding 660 ml 220 ml Output Urine Total 1330 ml 1240 ml Stool Total 500 ml # Bowel Movements 2 1 Laboratory Tests Test 12/30/19 04:38 White Blood Count 14.9 K/UL (4.8-10.8) #H Red Blood Count 3.94 M/UL (4.20-5.40) L Hemoglobin 12.7 G/DL (12.0-16.0) Hematocrit 39.3 % (37.0-47.0) Mean Corpuscular Volume 100 FL (80-99) H Mean Corpuscular Hemoglobin 32.3 PG (27.0-31.0) H Mean Corpuscular Hemoglobin Concent 32.4 G/DL (32.0-36.0) Red Cell Distribution Width 13.1 % (11.6-14.8) Platelet Count 209 K/UL (150-450) Mean Platelet Volume 8.9 FL (6.5-10.1) Neutrophils (%) (Auto) 84.2 % (45.0-75.0) H Lymphocytes (%) (Auto) 10.2 % (20.0-45.0) L Monocytes (%) (Auto) 5.2 % (1.0-10.0) Eosinophils (%) (Auto) 0.0 % (0.0-3.0) Basophils (%) (Auto) 0.4 % (0.0-2.0) Sodium Level 140 MMOL/L (136-145) Potassium Level 3.8 MMOL/L (3.5-5.1) Chloride Level 100 MMOL/L (98-107) Carbon Dioxide Level 35 MMOL/L (21-32) H Anion Gap 5 mmol/L (5-15) Blood Urea Nitrogen 41 mg/dL (7-18) H Creatinine 0.8 MG/DL (0.55-1.30) Estimat Glomerular Filtration Rate > 60 mL/min (>60) Glucose Level 118 MG/DL (74-106) H Calcium Level 9.1 MG/DL (8.5-10.1) Total Bilirubin 0.6 MG/DL (0.2-1.0) Aspartate Amino Transf (AST/SGOT) 15 U/L (15-37) Alanine Aminotransferase (ALT/SGPT) 32 U/L (12-78) Alkaline Phosphatase 42 U/L (46-116) L Ammonia 17 umol/L (11-32) Total Protein 6.9 G/DL (6.4-8.2) Albumin 3.2 G/DL (3.4-5.0) L Globulin 3.7 g/dL Albumin/Globulin Ratio 0.9 (1.0-2.7) L Objective HEAD AND NECK: No JVD.BIPAP is on LUNGS: Coarse rhonchi. CARDIOVASCULAR: Regular S1 and S2 and tachycardic. ABDOMEN: Soft. EXTREMITIES: Bilateral Arm edema. Cameron Davies MD Dec 30, 2019 16:25
--- NOTE | 2019-12-30 17:20 | NUR ---
NURSE NOTES: Receive report from DARREL Melgar. Pt in bed asleep and easily arousable to tactile stimuli. IV site in RFA 20G SL patent and asymptomatic. Bed elevated with 30 degree for aspiration precautions. Side railsx3 up for safety. On P200 mattress. On valerio cath for retention, patent and intact. Noted left nare NG tube advanced at 70cm and running Vital AF 10ml/hr and no residual noted. Will advance as tolerated. On 10L/40% O2 via venturi mask and satin 100%. Will continue plan of care.
--- NOTE | 2019-12-30 17:26 | NUR ---
HAND-OFF: Report given to Min RN.
--- NOTE | 2019-12-30 18:00 | NUR ---
NURSE NOTES: 10cc residual from NG tube noted. Tube feeding with Vital AV increased to 20ml/hr. O2 decreased to 1LPM via N/C from 10LPM via venturi-mask and O2 sat noted with 100% on 1LPM via N/C.
--- NOTE | 2019-12-30 19:08 | NUR ---
HAND-OFF: Report given to DARREL Boateng. Pt remains stable
--- NOTE | 2019-12-30 19:09 | NUR ---
NURSE NOTES: Received patient from DARREL Whipple. Patient is aaox 1, vss, on campus monitor, and no acute distress. Patient is clean and on restrains with all needs met. Patient's upper extremities have pulses and capillary refill is less then 3 seconds. NG tube i place with vital AR running at 20mL/hr with no residue. No skin issues noted. IV site on her right forearm 22g is patent with signs of infection. Bed at its lowest position, call light in reach and bed rails x3 are up. Will continue to monitor.
[2019-12-30] MEDS: Miralax 17gm pkt ORAL SCH (20:49)
--- NOTE | 2019-12-30 23:22 | NUR ---
NURSE NOTES: patient os in bed seeping with no complications. NG-tube feeding has been increased to 30mL/he with 10mL residual. Will continue to monitor.
--- NOTE | 2019-12-30 23:46 | General Progress Note ---
Assessment/Plan Problem List: (1) Dyspnea ICD Codes: R06.00 - Dyspnea, unspecified SNOMED: 009629610 (2) Hypothyroidism ICD Codes: E03.9 - Hypothyroidism, unspecified SNOMED: 81785220 (3) Obese ICD Codes: E66.9 - Obesity, unspecified SNOMED: 859718363, 533016242 (4) Psychosis ICD Codes: F29 - Unspecified psychosis not due to a substance or known physiological condition SNOMED: 44676312 (5) Respiratory failure ICD Codes: J96.90 - Respiratory failure, unspecified, unspecified whether with hypoxia or hypercapnia SNOMED: 824954273 (6) Respiratory distress ICD Codes: R06.03 - Acute respiratory distress SNOMED: 040725137 (7) Dyspnea ICD Codes: R06.00 - Dyspnea, unspecified SNOMED: 050793619 (8) Pneumonia ICD Codes: J18.9 - Pneumonia, unspecified organism SNOMED: 100344646 (9) Acute and chronic respiratory failure ICD Codes: J96.20 - Acute and chronic respiratory failure, unspecified whether with hypoxia or hypercapnia SNOMED: 94280623 (10) Diabetes mellitus type 2 in nonobese ICD Codes: E11.9 - Type 2 diabetes mellitus without complications SNOMED: 490852464 (11) CHF (congestive heart failure) ICD Codes: I50.9 - Heart failure, unspecified SNOMED: 44103628 Qualifiers: Qualified Codes: I50.9 - Heart failure, unspecified (12) Hypoxia ICD Codes: R09.02 - Hypoxemia SNOMED: 458196882 (13) Elevated d-dimer ICD Codes: R79.89 - Other specified abnormal findings of blood chemistry SNOMED: 282162107 (14) Schizophrenia ICD Codes: F20.9 - Schizophrenia, unspecified SNOMED: 63841046 (15) Parkinson disease ICD Codes: G20 - Parkinson's disease SNOMED: 65841662 Status: progressing, unchanged Assessment/Plan: on lasix drip check lytes afebrile weak fluid overload lethargic on bipap lethargy obesity covid negative pleural effusion Subjective ROS Limited/Unobtainable: Yes Allergies: Coded Allergies: LITHIUM (Verified Allergy, Unknown, 02/07/19) Objective Last 24 Hour Vital Signs Date Time Temp Pulse Resp B/P (MAP) Pulse Ox O2 Delivery O2 Flow Rate FiO2 7/19/20 23:00 68 20 124/41 (68) 99 12/30/19 22:00 69 19 119/40 (66) 100 12/30/19 21:00 74 19 119/42 (67) 100 12/30/19 20:00 Nasal Cannula 1.0 12/30/19 20:00 98.4 73 22 117/30 (59) 100 12/30/19 20:00 1.0 12/30/19 19:36 100 Nasal Cannula 1.0 24 12/30/19 19:31 73 12/30/19 19:00 74 19 139/43 (75) 100 12/30/19 18:00 77 18 99/79 (86) 99 12/30/19 17:00 76 18 124/44 (70) 12/30/19 16:00 10.0 40 12/30/19 16:00 97.6 75 19 121/44 (69) 99 12/30/19 16:00 Bi-pap 12/30/19 15:56 66 12/30/19 15:00 73 21 120/45 (70) 100 12/30/19 14:00 71 19 121/44 (69) 100 12/30/19 13:00 69 19 118/43 (68) 99 12/30/19 12:24 66 12/30/19 12:00 Bi-pap 12/30/19 12:00 98.5 70 16 107/42 (63) 99 12/30/19 12:00 10.0 40 12/30/19 11:00 75 17 116/37 (63) 97 12/30/19 10:00 74 20 119/46 (70) 100 12/30/19 09:00 75 21 132/40 (70) 99 12/30/19 08:00 Bi-pap 12/30/19 08:00 97.5 75 19 138/32 (67) 100 12/30/19 08:00 10.0 40 12/30/19 07:24 95 Venturi Mask 8.0 40 12/30/19 07:12 78 12/30/19 07:00 81 19 136/63 (87) 100 12/30/19 06:00 78 23 128/91 (103) 12/30/19 05:00 66 17 117/43 (67) 98 12/30/19 04:00 10.0 40 12/30/19 04:00 Bi-pap 12/30/19 04:00 67 19 118/43 (68) 100 12/30/19 04:00 67 12/30/19 03:00 72 19 123/41 (68) 100 12/30/19 02:00 73 21 119/44 (69) 100 12/30/19 01:00 75 18 116/42 (66) 96 12/30/19 00:00 Bi-pap 12/30/19 00:00 73 12/30/19 00:00 73 19 120/44 (69) 100 12/30/19 00:00 10.0 40 12/29/19 23:51 100 Venturi Mask 8.0 40 Intake and Output 12/29/19 12/30/19 19:00 07:00 Intake Total 1725 ml 220 ml Output Total 1830 ml 1240 ml Balance -105 ml -1020 ml Free Water 300 ml IV Total 765 ml Tube Feeding 660 ml 220 ml Output Urine Total 1330 ml 1240 ml Stool Total 500 ml # Bowel Movements 2 1 Laboratory Tests 12/30/19 04:38: White Blood Count 14.9#H, Red Blood Count 3.94L, Hemoglobin 12.7, Hematocrit 39.3, Mean Corpuscular Volume 100H, Mean Corpuscular Hemoglobin 32.3H, Mean Corpuscular Hemoglobin Concent 32.4, Red Cell Distribution Width 13.1, Platelet Count 209, Mean Platelet Volume 8.9, Neutrophils (%) (Auto) 84.2H, Lymphocytes ( %) (Auto) 10.2L, Monocytes (%) (Auto) 5.2, Eosinophils (%) (Auto) 0.0, Basophils (%) (Auto) 0.4, Sodium Level 140, Potassium Level 3.8, Chloride Level 100, Carbon Dioxide Level 35H, Anion Gap 5, Blood Urea Nitrogen 41H, Creatinine 0.8, Estimat Glomerular Filtration Rate > 60, Glucose Level 118H, Calcium Level 9.1, Total Bilirubin 0.6, Aspartate Amino Transf (AST/SGOT) 15, Alanine Aminotransferase (ALT/SGPT) 32, Alkaline Phosphatase 42L, Ammonia 17, Total Protein 6.9, Albumin 3.2L, Globulin 3.7, Albumin/Globulin Ratio 0.9L 12/30/19 18:27: POC Whole Blood Glucose 147H 12/30/19 20:03: Arterial Blood pH 7.382, Arterial Blood Partial Pressure CO2 62.0*H, Arterial Blood Partial Pressure O2 72.6L, Arterial Blood HCO3 36.0H, Arterial Blood Oxygen Saturation 93.8L, Arterial Blood Base Excess 9.2*H, Raphael Test Positive Height (Feet): 5 Height (Inches): 7.00 Weight (Pounds): 198 Dani Perera MD Dec 30, 2019 23:46
[2019-12-31] VITALS (23 sets, daily range): BP systolic 120–154; BP diastolic 36–91
--- NOTE | 2019-12-31 04:00 | NUR ---
NURSE NOTES: Patient is restless and moves while in restraints. Patient observed trying to remove medical devices while cleaning patient. Will continue to monitor.
[2019-12-31] MEDS: Solu-MEDROL 40mg Inj IVP SCH ×3 (06:28→17:58)
[2019-12-31] MEDS: NovoLOG Insulin Flexpen SUBQ SCH ×3 (06:29→18:00)
--- NOTE | 2019-12-31 06:57 | General Progress Note ---
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 - Other specified diabetes mellitus without complications SNOMED: 816935967 (2) Parkinson disease ICD Codes: G20 - Parkinson's disease SNOMED: 40901757 (3) Schizophrenia ICD Codes: F20.9 - Schizophrenia, unspecified SNOMED: 37697050 (4) Hypertension ICD Codes: I10 - Essential (primary) hypertension SNOMED: 84149489 (5) Respiratory failure ICD Codes: J96.90 - Respiratory failure, unspecified, unspecified whether with hypoxia or hypercapnia SNOMED: 710904300 (6) Hypothyroidism ICD Codes: E03.9 - Hypothyroidism, unspecified SNOMED: 08622523 Status: progressing, unchanged Assessment/Plan: TSH improved - continue Levothyroxine 75 mcg IV daily continue Novolog sliding scale every 6 hours hypoglycemia protocol in order Subjective ROS Limited/Unobtainable: Yes Allergies: Coded Allergies: LITHIUM (Verified Allergy, Unknown, 02/07/19) Subjective events noted glucose values are stable Item Value Date Time Bedside Blood Glucose 141 mg/dl H 12/31/19 0629 Bedside Blood Glucose 151 mg/dl H 12/31/19 0000 Bedside Blood Glucose 147 mg/dl H 12/30/19 1831 Bedside Blood Glucose 117 mg/dl 12/30/19 1200 Bedside Blood Glucose 122 mg/dl H 12/30/19 0600 Bedside Blood Glucose 123 mg/dl H 12/30/19 0000 Objective Last 24 Hour Vital Signs Date Time Temp Pulse Resp B/P (MAP) Pulse Ox O2 Delivery O2 Flow Rate FiO2 12/31/19 06:00 72 20 142/44 (76) 96 12/31/19 05:00 98.0 72 19 129/62 (84) 97 12/31/19 04:00 78 23 125/58 (80) 94 12/31/19 04:00 Nasal Cannula 1.0 12/31/19 04:00 75 12/31/19 04:00 1.0 12/31/19 03:00 61 20 120/38 (65) 96 12/31/19 02:00 74 19 124/42 (69) 98 12/31/19 01:00 97.8 68 18 125/40 (68) 96 12/31/19 00:00 64 17 120/37 (64) 93 12/31/19 00:00 65 7/20/20 00:00 Nasal Cannula 1.0 12/31/19 00:00 1.0 12/30/19 23:00 68 20 124/41 (68) 99 12/30/19 22:00 69 19 119/40 (66) 100 12/30/19 21:00 74 19 119/42 (67) 100 12/30/19 20:00 Nasal Cannula 1.0 12/30/19 20:00 98.4 73 22 117/30 (59) 100 12/30/19 20:00 1.0 12/30/19 19:36 100 Nasal Cannula 1.0 24 12/30/19 19:31 73 12/30/19 19:00 95 Nasal Cannula 1.0 24 12/30/19 19:00 74 19 139/43 (75) 100 12/30/19 18:00 77 18 99/79 (86) 99 12/30/19 17:00 76 18 124/44 (70) 12/30/19 16:00 10.0 40 12/30/19 16:00 97.6 75 19 121/44 (69) 99 12/30/19 16:00 Bi-pap 12/30/19 15:56 66 12/30/19 15:00 73 21 120/45 (70) 100 12/30/19 14:00 71 19 121/44 (69) 100 12/30/19 13:00 69 19 118/43 (68) 99 12/30/19 12:24 66 12/30/19 12:00 Bi-pap 12/30/19 12:00 98.5 70 16 107/42 (63) 99 12/30/19 12:00 10.0 40 12/30/19 11:00 75 17 116/37 (63) 97 12/30/19 10:00 74 20 119/46 (70) 100 12/30/19 09:00 75 21 132/40 (70) 99 12/30/19 08:00 Bi-pap 12/30/19 08:00 97.5 75 19 138/32 (67) 100 12/30/19 08:00 10.0 40 12/30/19 07:24 95 Venturi Mask 8.0 40 12/30/19 07:12 78 12/30/19 07:00 81 19 136/63 (87) 100 Intake and Output 12/30/19 12/31/19 19:00 07:00 Intake Total 100 ml 430 ml Output Total 910 ml 980 ml Balance -810 ml -550 ml Free Water 150 ml Tube Feeding 100 ml 280 ml Output Urine Total 910 ml 980 ml Stool Total 0 ml 0 ml Laboratory Tests 12/30/19 18:27: POC Whole Blood Glucose 147H 12/30/19 20:03: Arterial Blood pH 7.382, Arterial Blood Partial Pressure CO2 62.0*H, Arterial Blood Partial Pressure O2 72.6L, Arterial Blood HCO3 36.0H, Arterial Blood Oxygen Saturation 93.8L, Arterial Blood Base Excess 9.2*H, Raphael Test Positive 12/30/19 23:28: POC Whole Blood Glucose 151H 12/31/19 00:42: POC Whole Blood Glucose 156H 12/31/19 05:00: Sodium Level [Pending], Potassium Level [Pending], Chloride Level [Pending], Carbon Dioxide Level [Pending], Blood Urea Nitrogen [Pending], Creatinine [ Pending], Estimat Glomerular Filtration Rate [Pending], Glucose Level [Pending] , Calcium Level [Pending], Phosphorus Level [Pending], Magnesium Level [Pending] , Total Bilirubin [Pending], Aspartate Amino Transf (AST/SGOT) [Pending], Alanine Aminotransferase (ALT/SGPT) [Pending], Alkaline Phosphatase [Pending], Total Protein [Pending], Albumin [Pending], Globulin [Pending], Thyroid Stimulating Hormone (TSH) [Pending] Height (Feet): 5 Height (Inches): 7.00 Weight (Pounds): 206 General Appearance: lethargic Cardiovascular: tachycardia Respiratory/Chest: decreased breath sounds Objective Current Medications Medications (Trade) Dose Ordered Sig/Angie Route PRN Reason Start Time Stop Time Status Last Admin Dose Admin Acetaminophen (Tylenol) 650 mg Q6H PRN ORAL Mild Pain (Pain Scale 1-3) 12/12/19 12:30 01/11/20 12:29 12/22/19 20:56 Acetaminophen (Tylenol) 1,000 mg Q6H PRN ORAL MODERATE PAIN 12/12/19 12:30 01/11/20 12:29 Amantadine HCl (Symmetrel) 100 mg TWICE A DAY ORAL 12/22/19 18:00 01/11/20 08:59 12/30/19 18:20 Aspirin (ASA) 324 mg DAILY ORAL 12/23/19 09:00 02/04/20 08:59 12/30/19 09:59 Atorvastatin Calcium (Lipitor) 10 mg BEDTIME ORAL 12/22/19 21:00 03/11/20 20:59 12/30/19 20:48 Calcium Carbonate (Os-Octavio) 500 mg THREE TIMES A DAY ORAL 12/22/19 13:00 03/20/20 17:59 12/30/19 18:20 Clonidine HCl (Catapres Tab) 0.1 mg Q6H PRN GT For high BP over 160 systolic 12/15/19 16:30 03/11/20 12:30 12/24/19 01:47 Dextrose (Dextrose 50%) 25 ml Q30M PRN IV Hypoglycemia 12/13/19 07:15 03/12/20 07:14 Dextrose (Dextrose 50%) 50 ml Q30M PRN IV Hypoglycemia 12/13/19 07:15 03/12/20 07:14 Divalproex Sodium (Depakote) 250 mg EVERY 12 HOURS ORAL 12/22/19 21:00 01/12/20 20:59 12/30/19 20:48 Docusate Sodium (Colace) 100 mg TWICE A DAY ORAL 12/22/19 18:00 01/14/20 17:59 12/29/19 09:01 Insulin Aspart (NovoLOG) EVERY 6 HOURS SUBQ 12/13/19 12:00 03/12/20 11:59 12/31/19 06:29 Lactulose (Cephulac) 20 gm BID ORAL 12/25/19 09:00 01/24/20 08:59 12/30/19 09:59 Levothyroxine Sodium (Synthroid) 100 mcg DAILY IV 12/27/19 09:00 01/11/20 09:29 12/30/19 10:02 Methylprednisolone Sodium Succinate (Solu-MEDROL) 20 mg EVERY 6 HOURS IVP 12/22/19 12:00 03/18/20 11:59 12/31/19 06:28 Nitroglycerin (Ntg) 0.4 mg Q5MIN X 3 DOSES PRN SL CHEST PAIN 12/12/19 12:00 01/10/20 21:44 Pantoprazole (Protonix) 40 mg EVERY 12 HOURS IVP 12/14/19 09:00 01/13/20 08:59 12/30/19 20:48 Polyethylene Glycol (Miralax) 17 gm BEDTIME ORAL 12/22/19 21:00 01/18/20 20:59 12/28/19 20:27 Polyethylene Glycol (Miralax) 17 gm DAILYPRN PRN ORAL Constipation 12/24/19 19:00 01/23/20 18:59 Quetiapine Fumarate (SEROqueL) 50 mg Q12HR ORAL 12/22/19 21:00 02/05/20 20:59 12/30/19 20:49 Jabari Adams MD Dec 31, 2019 06:57
--- NOTE | 2019-12-31 07:08 | NUR ---
HAND-OFF: Report given to DARREL Melgar.
--- NOTE | 2019-12-31 07:09 | NUR ---
NURSE NOTES: Received patient from [facility]. Patient is awake, alert to name, patient is disoriented. Sinus Rhythm on the heart monitor, HR 73. Receiving oxygen via nasal cannula at 1L/min, O2 saturation at 99%. Right Nares NGT is intact and receiving Vital AF at 30cc/hr. IV site is Right Forearm 20g patent and intact. Ace catheter and rectal tube are patent and intact. Bed is locked, placed in lowest position, side rails up x3, bed alarm on, head of bed elevated, call light within reach. Will continue to monitor.
[2019-12-31 07:21] LABS: ALANINE AMINOTRANSFERASE 27 U/L (12-78); ALBUMIN 3.1 G/DL (3.4-5.0); ALBUMIN/GLOBULIN RATIO 0.8 (1.0-2.7); ALKALINE PHOSPHATASE 42 U/L (46-116); ANION GAP 4 mmol/L (5-15); ASPARTATE AMINO TRANSFERASE 12 U/L (15-37); BILIRUBIN,TOTAL 0.6 MG/DL (0.2-1.0); BLOOD UREA NITROGEN 39 mg/dL (7-18); CALCIUM 9.1 MG/DL (8.5-10.1); CARBON DIOXIDE 35 MMOL/L (21-32); CHLORIDE 103 MMOL/L (98-107); CREATININE 0.9 MG/DL (0.55-1.30); PHOSPHORUS 3.4 MG/DL (2.5-4.9); POTASSIUM 3.9 MMOL/L (3.5-5.1); SODIUM 142 MMOL/L (136-145)
[2019-12-31] MEDS: Aspirin Baby 81mg ORAL SCH (08:23)
[2019-12-31] MEDS: Lactulose 20gm/30ml UDC ORAL SCH ×2 (08:23→17:42)
[2019-12-31] MEDS: Pantoprazole Inj IVP SCH ×2 (08:23→21:00)
[2019-12-31] MEDS: Amantadine 100mg cap ORAL SCH ×2 (08:24→17:42)
[2019-12-31] MEDS: Os-Cal (Oyster Shell) 500mg tab ORAL SCH ×3 (08:24→17:42)
[2019-12-31] MEDS: Docusate 100mg cap ORAL SCH ×2 (08:24→17:42)
--- NOTE | 2019-12-31 08:30 | NUR ---
NURSE NOTES: Turned and repositioned patient. Tube feeding increased to 40cc/hr, patient tolerating feeding well, residual approximately 5cc. Patient remains on 1L/min nasal cannula and is saturating at 94%, no signs of acute distress, will continue to monitor.
--- NOTE | 2019-12-31 09:44 | General Progress Note ---
Assessment/Plan Status: progressing, unchanged Assessment/Plan: Assessment - Resp failure - r/o COVID -- x 2 negative - COPD - HTN - Anemia - Abnormal LFT Recommendations - extubated now - Elevate HOB - abx - follow labs - f/u hepatitis serologies>>> neg -repeat labs -NGTf titrate up as tolerated to the goal rate -swallow eval when more stable -bowel regimen Subjective ROS Limited/Unobtainable: No Allergies: Coded Allergies: LITHIUM (Verified Allergy, Unknown, 02/07/19) Objective Last 24 Hour Vital Signs Date Time Temp Pulse Resp B/P (MAP) Pulse Ox O2 Delivery O2 Flow Rate FiO2 12/31/19 08:14 65 12/31/19 08:00 1.0 12/31/19 08:00 Nasal Cannula 1.0 12/31/19 08:00 68 19 135/36 (69) 97 12/31/19 07:11 96 Nasal Cannula 1.0 24 12/31/19 07:00 74 18 138/54 (82) 98 12/31/19 06:00 72 20 142/44 (76) 96 12/31/19 05:00 98.0 72 19 129/62 (84) 97 12/31/19 04:00 78 23 125/58 (80) 94 12/31/19 04:00 Nasal Cannula 1.0 12/31/19 04:00 75 12/31/19 04:00 1.0 12/31/19 03:00 61 20 120/38 (65) 96 12/31/19 02:00 74 19 124/42 (69) 98 12/31/19 01:00 97.8 68 18 125/40 (68) 96 12/31/19 00:00 64 17 120/37 (64) 93 12/31/19 00:00 65 12/31/19 00:00 Nasal Cannula 1.0 12/31/19 00:00 1.0 12/30/19 23:00 68 20 124/41 (68) 99 12/30/19 22:00 69 19 119/40 (66) 100 12/30/19 21:00 74 19 119/42 (67) 100 12/30/19 20:00 Nasal Cannula 1.0 12/30/19 20:00 98.4 73 22 117/30 (59) 100 12/30/19 20:00 1.0 12/30/19 19:36 100 Nasal Cannula 1.0 24 12/30/19 19:31 73 12/30/19 19:00 95 Nasal Cannula 1.0 24 12/30/19 19:00 74 19 139/43 (75) 100 12/30/19 18:00 77 18 99/79 (86) 99 12/30/19 17:00 76 18 124/44 (70) 12/30/19 16:00 10.0 40 12/30/19 16:00 97.6 75 19 121/44 (69) 99 12/30/19 16:00 Bi-pap 12/30/19 15:56 66 12/30/19 15:00 73 21 120/45 (70) 100 12/30/19 14:00 71 19 121/44 (69) 100 12/30/19 13:00 69 19 118/43 (68) 99 12/30/19 12:24 66 12/30/19 12:00 Bi-pap 12/30/19 12:00 98.5 70 16 107/42 (63) 99 12/30/19 12:00 10.0 40 12/30/19 11:00 75 17 116/37 (63) 97 12/30/19 10:00 74 20 119/46 (70) 100 Intake and Output 12/30/19 12/31/19 19:00 07:00 Intake Total 100 ml 460 ml Output Total 910 ml 1005 ml Balance -810 ml -545 ml Free Water 150 ml Tube Feeding 100 ml 310 ml Output Urine Total 910 ml 1005 ml Stool Total 0 ml 0 ml Laboratory Tests 12/30/19 18:27: POC Whole Blood Glucose 147H 12/30/19 20:03: Arterial Blood pH 7.382, Arterial Blood Partial Pressure CO2 62.0*H, Arterial Blood Partial Pressure O2 72.6L, Arterial Blood HCO3 36.0H, Arterial Blood Oxygen Saturation 93.8L, Arterial Blood Base Excess 9.2*H, Raphael Test Positive 12/30/19 23:28: POC Whole Blood Glucose 151H 12/31/19 00:42: POC Whole Blood Glucose 156H 12/31/19 05:00: Sodium Level 142, Potassium Level 3.9, Chloride Level 103, Carbon Dioxide Level 35H, Anion Gap 4L, Blood Urea Nitrogen 39H, Creatinine 0.9, Estimat Glomerular Filtration Rate > 60, Glucose Level 156H, Calcium Level 9.1, Phosphorus Level 3.4, Magnesium Level 2.2, Total Bilirubin 0.6, Aspartate Amino Transf (AST/SGOT ) 12L, Alanine Aminotransferase (ALT/SGPT) 27, Alkaline Phosphatase 42L, Total Protein 6.9, Albumin 3.1L, Globulin 3.8, Albumin/Globulin Ratio 0.8L, Thyroid Stimulating Hormone (TSH) 4.938H Height (Feet): 5 Height (Inches): 7.00 Weight (Pounds): 206 General Appearance: mild distress Neck: supple Cardiovascular: tachycardia Respiratory/Chest: decreased breath sounds Abdomen: hypoactive bowel sounds Extremities: non-tender Kirk Vidal MD Dec 31, 2019 09:44
--- NOTE | 2019-12-31 10:09 | Nephrology Progress Note ---
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 Respiratory distress most likely secondary to pulmonary edema and or COPD exacerbation. Hyponatremia. Obese. Hypothyroidism. Elevated d-dimer. Elevated liver enzymes Plan December 30: Lab reviewed. Renal parameters stable. On 1 L oxygen with cannula. Patient agitated periodically. Due transfer to [facility]. December 29: Lab reviewed. Renal parameters stable. Now on Venturi mask. CO2 lower to 35. December 28: Lab reviewed: CO2 remains high: On BiPAP. Continue per pulmonary. Stable from renal standpoint of view. December 27: Lab reviewed. Continues to retain CO2. On Venturi mask. Continue per pulmonary. Stable from renal standpoint of view. December 26: Lab reviewed. ABG reviewed. Patient retaining CO2. Remains on BiPAP. Continue per pulmonary. Stable from renal standpoint of view. December 25: Lab reviewed. TSH remains high. On nonrebreathing mask. Renal parameters stable. Synthroid dose increased. IV fluids stopped. December 24: Lab reviewed. Still on BiPAP. Renal parameters stable. December 23: Lab reviewed. Remains on BiPAP. Agitated at times. ABG ordered. Serum sodium improved. December 22: Lab reviewed. On BiPAP. Stable from renal standpoint of view. Will follow serum sodium. December 21: Labs reviewed. On nonrebreather mask. D5W 50 cc an hour started for hypernatremia. Magnesium supplement given. Continue per consultants. December 20: Patient on weaning trial. No labs done today. Discussed with RN. Continue per consultants. December 19: Patient remains intubated. Renal parameters stable. Discussed with RN. Continue per consultants. December 18: Patient self extubated yesterday however was reintubated. Remains stable from renal standpoint of view. Discussed with RN. Discussed with Dr. Myers. December 17: Remains intubated. Remains full code. Failed weaning. Stable from renal standpoint of view. Continue per consultants. Discussed with DARREL [place]. December 16: Remains intubated. Full code. Weaning in process. Stable from renal standpoint of view. December 15: Remains vented. Electrolytes improved. Continue per consultants. December 14: Patient remains in ICU intubated on ventilator. Potassium low. Phosphorus low. Supplements given. Renal parameters are stable. Continue per consultants. December 13: Patient remains in ICU intubated on ventilator. Discussed with RN. Labs reviewed. Creatinine 1.3. Potassium supplements given. Mag sulfate IV 2 g given. Continue per consultants. December 12: Patient in ICU. Intubated on ventilator. Discussed with RN. Labs reviewed. Potassium supplement given. Continue per consultants. Arterial blood gas indicative of CO2 retention. Patient on the way to ICU for intubation. Continue per pulmonary management. Pulmonary support, Check 2D echocardiogram. Previous 2D echo had a 50% ejection fraction. Keep blood sugar and blood pressure in check. Thyroid panel. Monitor electrolytes and renal parameters. Afterload reduction. Diuretics Monitor serum calcium, supplements via NG tube. Per orders. Subjective ROS Limited/Unobtainable: Yes Objective Objective Last 24 Hour Vital Signs Date Time Temp Pulse Resp B/P (MAP) Pulse Ox O2 Delivery O2 Flow Rate FiO2 12/31/19 08:14 65 12/31/19 08:00 1.0 12/31/19 08:00 Nasal Cannula 1.0 12/31/19 08:00 68 19 135/36 (69) 97 12/31/19 07:11 96 Nasal Cannula 1.0 24 12/31/19 07:00 74 18 138/54 (82) 98 12/31/19 06:00 72 20 142/44 (76) 96 12/31/19 05:00 98.0 72 19 129/62 (84) 97 12/31/19 04:00 78 23 125/58 (80) 94 12/31/19 04:00 Nasal Cannula 1.0 12/31/19 04:00 75 12/31/19 04:00 1.0 12/31/19 03:00 61 20 120/38 (65) 96 12/31/19 02:00 74 19 124/42 (69) 98 12/31/19 01:00 97.8 68 18 125/40 (68) 96 12/31/19 00:00 64 17 120/37 (64) 93 12/31/19 00:00 65 12/31/19 00:00 Nasal Cannula 1.0 12/31/19 00:00 1.0 12/30/19 23:00 68 20 124/41 (68) 99 12/30/19 22:00 69 19 119/40 (66) 100 12/30/19 21:00 74 19 119/42 (67) 100 12/30/19 20:00 Nasal Cannula 1.0 12/30/19 20:00 98.4 73 22 117/30 (59) 100 12/30/19 20:00 1.0 12/30/19 19:36 100 Nasal Cannula 1.0 24 12/30/19 19:31 73 12/30/19 19:00 95 Nasal Cannula 1.0 24 12/30/19 19:00 74 19 139/43 (75) 100 12/30/19 18:00 77 18 99/79 (86) 99 12/30/19 17:00 76 18 124/44 (70) 12/30/19 16:00 10.0 40 12/30/19 16:00 97.6 75 19 121/44 (69) 99 12/30/19 16:00 Bi-pap 12/30/19 15:56 66 12/30/19 15:00 73 21 120/45 (70) 100 12/30/19 14:00 71 19 121/44 (69) 100 12/30/19 13:00 69 19 118/43 (68) 99 12/30/19 12:24 66 12/30/19 12:00 Bi-pap 12/30/19 12:00 98.5 70 16 107/42 (63) 99 12/30/19 12:00 10.0 40 12/30/19 11:00 75 17 116/37 (63) 97 Intake and Output 12/30/19 12/31/19 19:00 07:00 Intake Total 100 ml 460 ml Output Total 910 ml 1005 ml Balance -810 ml -545 ml Free Water 150 ml Tube Feeding 100 ml 310 ml Output Urine Total 910 ml 1005 ml Stool Total 0 ml 0 ml Current Medications Medications (Trade) Dose Ordered Sig/Angie Route PRN Reason Start Time Stop Time Status Last Admin Dose Admin Acetaminophen (Tylenol) 650 mg Q6H PRN ORAL Mild Pain (Pain Scale 1-3) 12/12/19 12:30 01/11/20 12:29 12/22/19 20:56 Acetaminophen (Tylenol) 1,000 mg Q6H PRN ORAL MODERATE PAIN 12/12/19 12:30 01/11/20 12:29 Amantadine HCl (Symmetrel) 100 mg TWICE A DAY ORAL 12/22/19 18:00 01/11/20 08:59 12/31/19 08:24 Aspirin (ASA) 324 mg DAILY ORAL 12/23/19 09:00 02/04/20 08:59 12/31/19 08:23 Atorvastatin Calcium (Lipitor) 10 mg BEDTIME ORAL 12/22/19 21:00 03/11/20 20:59 12/30/19 20:48 Calcium Carbonate (Os-Octavio) 500 mg THREE TIMES A DAY ORAL 12/22/19 13:00 03/20/20 17:59 12/31/19 08:24 Clonidine HCl (Catapres Tab) 0.1 mg Q6H PRN GT For high BP over 160 systolic 12/15/19 16:30 03/11/20 12:30 12/24/19 01:47 Dextrose (Dextrose 50%) 25 ml Q30M PRN IV Hypoglycemia 12/13/19 07:15 03/12/20 07:14 Dextrose (Dextrose 50%) 50 ml Q30M PRN IV Hypoglycemia 12/13/19 07:15 03/12/20 07:14 Divalproex Sodium (Depakote) 250 mg EVERY 12 HOURS ORAL 12/22/19 21:00 01/12/20 20:59 12/31/19 08:23 Docusate Sodium (Colace) 100 mg TWICE A DAY ORAL 12/22/19 18:00 01/14/20 17:59 12/29/19 09:01 Insulin Aspart (NovoLOG) EVERY 6 HOURS SUBQ 12/13/19 12:00 03/12/20 11:59 12/31/19 06:29 Lactulose (Cephulac) 20 gm BID ORAL 12/25/19 09:00 01/24/20 08:59 12/31/19 08:23 Levothyroxine Sodium (Synthroid) 100 mcg DAILY IV 12/27/19 09:00 01/11/20 09:29 12/31/19 08:23 Methylprednisolone Sodium Succinate (Solu-MEDROL) 20 mg EVERY 6 HOURS IVP 12/22/19 12:00 03/18/20 11:59 12/31/19 06:28 Nitroglycerin (Ntg) 0.4 mg Q5MIN X 3 DOSES PRN SL CHEST PAIN 12/12/19 12:00 01/10/20 21:44 Pantoprazole (Protonix) 40 mg EVERY 12 HOURS IVP 12/14/19 09:00 01/13/20 08:59 12/31/19 08:23 Polyethylene Glycol (Miralax) 17 gm BEDTIME ORAL 12/22/19 21:00 01/18/20 20:59 12/28/19 20:27 Polyethylene Glycol (Miralax) 17 gm DAILYPRN PRN ORAL Constipation 12/24/19 19:00 01/23/20 18:59 Quetiapine Fumarate (SEROqueL) 50 mg Q12HR ORAL 12/22/19 21:00 02/05/20 20:59 12/31/19 08:23 Laboratory Tests 12/30/19 18:27: POC Whole Blood Glucose 147H 12/30/19 20:03: Arterial Blood pH 7.382, Arterial Blood Partial Pressure CO2 62.0*H, Arterial Blood Partial Pressure O2 72.6L, Arterial Blood HCO3 36.0H, Arterial Blood Oxygen Saturation 93.8L, Arterial Blood Base Excess 9.2*H, Raphael Test Positive 12/30/19 23:28: POC Whole Blood Glucose 151H 12/31/19 00:42: POC Whole Blood Glucose 156H 12/31/19 05:00: Sodium Level 142, Potassium Level 3.9, Chloride Level 103, Carbon Dioxide Level 35H, Anion Gap 4L, Blood Urea Nitrogen 39H, Creatinine 0.9, Estimat Glomerular Filtration Rate > 60, Glucose Level 156H, Calcium Level 9.1, Phosphorus Level 3.4, Magnesium Level 2.2, Total Bilirubin 0.6, Aspartate Amino Transf (AST/SGOT ) 12L, Alanine Aminotransferase (ALT/SGPT) 27, Alkaline Phosphatase 42L, Total Protein 6.9, Albumin 3.1L, Globulin 3.8, Albumin/Globulin Ratio 0.8L, Thyroid Stimulating Hormone (TSH) 4.938H Height (Feet): 5 Height (Inches): 7.00 Weight (Pounds): 206 General Appearance: lethargic, agitated - At times Cardiovascular: other - Variable rate Respiratory/Chest: decreased breath sounds Abdomen: distended Bryan Ochoa MD Dec 31, 2019 10:09
--- NOTE | 2019-12-31 10:46 | Infectious Diseases Prog Note ---
Assessment/Plan Assessment/Plan IMPRESSION: COPD exacerbation, Pneumonia, COID19 X 2: negative Acute respiratory failure with hypercapnia Dementia, Parkinson, Mitral valve regurgitation, Hypertension, Hypothyroidism. 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 RECOMMENDATION: Observe off antibiotic Subjective ROS Limited/Unobtainable: Yes Constitutional: Reports: other - doing better Allergies: Coded Allergies: LITHIUM (Verified Allergy, Unknown, 02/07/19) Objective Last 24 Hour Vital Signs Date Time Temp Pulse Resp B/P (MAP) Pulse Ox O2 Delivery O2 Flow Rate FiO2 12/31/19 10:00 71 21 127/42 (70) 93 12/31/19 09:00 98.6 73 20 131/46 (74) 89 12/31/19 08:14 65 12/31/19 08:00 1.0 12/31/19 08:00 Nasal Cannula 1.0 12/31/19 08:00 68 19 135/36 (69) 97 12/31/19 07:11 96 Nasal Cannula 1.0 24 12/31/19 07:00 74 18 138/54 (82) 98 12/31/19 06:00 72 20 142/44 (76) 96 12/31/19 05:00 98.0 72 19 129/62 (84) 97 12/31/19 04:00 78 23 125/58 (80) 94 12/31/19 04:00 Nasal Cannula 1.0 12/31/19 04:00 75 12/31/19 04:00 1.0 12/31/19 03:00 61 20 120/38 (65) 96 12/31/19 02:00 74 19 124/42 (69) 98 12/31/19 01:00 97.8 68 18 125/40 (68) 96 12/31/19 00:00 64 17 120/37 (64) 93 12/31/19 00:00 65 12/31/19 00:00 Nasal Cannula 1.0 12/31/19 00:00 1.0 12/30/19 23:00 68 20 124/41 (68) 99 12/30/19 22:00 69 19 119/40 (66) 100 12/30/19 21:00 74 19 119/42 (67) 100 12/30/19 20:00 Nasal Cannula 1.0 12/30/19 20:00 98.4 73 22 117/30 (59) 100 7/19/20 20:00 1.0 12/30/19 19:36 100 Nasal Cannula 1.0 24 12/30/19 19:31 73 12/30/19 19:00 95 Nasal Cannula 1.0 24 12/30/19 19:00 74 19 139/43 (75) 100 12/30/19 18:00 77 18 99/79 (86) 99 12/30/19 17:00 76 18 124/44 (70) 12/30/19 16:00 10.0 40 12/30/19 16:00 97.6 75 19 121/44 (69) 99 12/30/19 16:00 Bi-pap 12/30/19 15:56 66 12/30/19 15:00 73 21 120/45 (70) 100 12/30/19 14:00 71 19 121/44 (69) 100 12/30/19 13:00 69 19 118/43 (68) 99 12/30/19 12:24 66 12/30/19 12:00 Bi-pap 12/30/19 12:00 98.5 70 16 107/42 (63) 99 12/30/19 12:00 10.0 40 12/30/19 11:00 75 17 116/37 (63) 97 Height (Feet): 5 Height (Inches): 7.00 Weight (Pounds): 206 HEENT: mucous membranes moist Respiratory/Chest: decreased breath sounds, other - oxygen by nasal cannula Cardiovascular: normal rate Abdomen: soft, non tender, other - NG & recal tubes Extremities: no edema Neurologic/Psychiatric: alert, responsive, disoriented Laboratory Tests Test 12/30/19 18:27 12/30/19 20:03 12/30/19 23:28 12/31/19 00:42 POC Whole Blood Glucose 147 MG/DL (74-106) H 151 MG/DL (74-106) H 156 MG/DL (74-106) H Arterial Blood pH 7.382 (7.350-7.450) Arterial Blood Partial Pressure CO2 62.0 mmHg (35.0-45.0) *H Arterial Blood Partial Pressure O2 72.6 mmHg (75.0-100.0) L Arterial Blood HCO3 36.0 mmol/L (22.0-26.0) H Arterial Blood Oxygen Saturation 93.8 % (95-100) L Arterial Blood Base Excess 9.2 (-2-2) *H Raphael Test Positive Test 12/31/19 05:00 Sodium Level 142 MMOL/L (136-145) Potassium Level 3.9 MMOL/L (3.5-5.1) Chloride Level 103 MMOL/L (98-107) Carbon Dioxide Level 35 MMOL/L (21-32) H Anion Gap 4 mmol/L (5-15) L Blood Urea Nitrogen 39 mg/dL (7-18) H Creatinine 0.9 MG/DL (0.55-1.30) Estimat Glomerular Filtration Rate > 60 mL/min (>60) Glucose Level 156 MG/DL (74-106) H Calcium Level 9.1 MG/DL (8.5-10.1) Phosphorus Level 3.4 MG/DL (2.5-4.9) Magnesium Level 2.2 MG/DL (1.8-2.4) Total Bilirubin 0.6 MG/DL (0.2-1.0) Aspartate Amino Transf (AST/SGOT) 12 U/L (15-37) L Alanine Aminotransferase (ALT/SGPT) 27 U/L (12-78) Alkaline Phosphatase 42 U/L (46-116) L Total Protein 6.9 G/DL (6.4-8.2) Albumin 3.1 G/DL (3.4-5.0) L Globulin 3.8 g/dL Albumin/Globulin Ratio 0.8 (1.0-2.7) L Thyroid Stimulating Hormone (TSH) 4.938 uiU/mL (0.358-3.740) Current Medications Medications (Trade) Dose Ordered Sig/Angie Route PRN Reason Start Time Stop Time Status Last Admin Dose Admin Acetaminophen (Tylenol) 650 mg Q6H PRN ORAL Mild Pain (Pain Scale 1-3) 12/12/19 12:30 01/11/20 12:29 12/22/19 20:56 Acetaminophen (Tylenol) 1,000 mg Q6H PRN ORAL MODERATE PAIN 12/12/19 12:30 01/11/20 12:29 Amantadine HCl (Symmetrel) 100 mg TWICE A DAY ORAL 12/22/19 18:00 01/11/20 08:59 12/31/19 08:24 Aspirin (ASA) 324 mg DAILY ORAL 12/23/19 09:00 02/04/20 08:59 12/31/19 08:23 Atorvastatin Calcium (Lipitor) 10 mg BEDTIME ORAL 12/22/19 21:00 03/11/20 20:59 12/30/19 20:48 Calcium Carbonate (Os-Octavio) 500 mg THREE TIMES A DAY ORAL 12/22/19 13:00 03/20/20 17:59 12/31/19 08:24 Clonidine HCl (Catapres Tab) 0.1 mg Q6H PRN GT For high BP over 160 systolic 12/15/19 16:30 03/11/20 12:30 12/24/19 01:47 Dextrose (Dextrose 50%) 25 ml Q30M PRN IV Hypoglycemia 12/13/19 07:15 03/12/20 07:14 Dextrose (Dextrose 50%) 50 ml Q30M PRN IV Hypoglycemia 12/13/19 07:15 03/12/20 07:14 Divalproex Sodium (Depakote) 250 mg EVERY 12 HOURS ORAL 12/22/19 21:00 01/12/20 20:59 12/31/19 08:23 Docusate Sodium (Colace) 100 mg TWICE A DAY ORAL 12/22/19 18:00 01/14/20 17:59 12/29/19 09:01 Insulin Aspart (NovoLOG) EVERY 6 HOURS SUBQ 12/13/19 12:00 03/12/20 11:59 12/31/19 06:29 Lactulose (Cephulac) 20 gm BID ORAL 12/25/19 09:00 01/24/20 08:59 12/31/19 08:23 Levothyroxine Sodium (Synthroid) 100 mcg DAILY IV 12/27/19 09:00 01/11/20 09:29 12/31/19 08:23 Methylprednisolone Sodium Succinate (Solu-MEDROL) 20 mg EVERY 6 HOURS IVP 12/22/19 12:00 03/18/20 11:59 12/31/19 06:28 Nitroglycerin (Ntg) 0.4 mg Q5MIN X 3 DOSES PRN SL CHEST PAIN 12/12/19 12:00 01/10/20 21:44 Pantoprazole (Protonix) 40 mg EVERY 12 HOURS IVP 12/14/19 09:00 01/13/20 08:59 12/31/19 08:23 Polyethylene Glycol (Miralax) 17 gm BEDTIME ORAL 12/22/19 21:00 01/18/20 20:59 12/28/19 20:27 Polyethylene Glycol (Miralax) 17 gm DAILYPRN PRN ORAL Constipation 12/24/19 19:00 01/23/20 18:59 Quetiapine Fumarate (SEROqueL) 50 mg Q12HR ORAL 12/22/19 21:00 02/05/20 20:59 12/31/19 08:23 Lei Chan MD Dec 31, 2019 10:46
--- NOTE | 2019-12-31 10:58 | NUR ---
NURSE NOTES: Upon entering patient's room, NGT was found on the side of the bed. Attempted to reinsert another NGT but too much resistance met. Spoke to Dr. Dey, bed side swallow and transfer orders to SDU orders obtained.
--- NOTE | 2019-12-31 11:22 | General Progress Note ---
Assessment/Plan Problem List: (1) Dyspnea ICD Codes: R06.00 - Dyspnea, unspecified SNOMED: 649620339 (2) Hypothyroidism ICD Codes: E03.9 - Hypothyroidism, unspecified SNOMED: 57691649 (3) Obese ICD Codes: E66.9 - Obesity, unspecified SNOMED: 550300961, 937040823 (4) Psychosis ICD Codes: F29 - Unspecified psychosis not due to a substance or known physiological condition SNOMED: 76656698 (5) Respiratory failure ICD Codes: J96.90 - Respiratory failure, unspecified, unspecified whether with hypoxia or hypercapnia SNOMED: 991365865 (6) Respiratory distress ICD Codes: R06.03 - Acute respiratory distress SNOMED: 776994049 (7) Dyspnea ICD Codes: R06.00 - Dyspnea, unspecified SNOMED: 744955098 (8) Pneumonia ICD Codes: J18.9 - Pneumonia, unspecified organism SNOMED: 480921748 (9) Acute and chronic respiratory failure ICD Codes: J96.20 - Acute and chronic respiratory failure, unspecified whether with hypoxia or hypercapnia SNOMED: 63598924 (10) Diabetes mellitus type 2 in nonobese ICD Codes: E11.9 - Type 2 diabetes mellitus without complications SNOMED: 307862288 (11) CHF (congestive heart failure) ICD Codes: I50.9 - Heart failure, unspecified SNOMED: 04009528 Qualifiers: Qualified Codes: I50.9 - Heart failure, unspecified (12) Hypoxia ICD Codes: R09.02 - Hypoxemia SNOMED: 892215131 (13) Elevated d-dimer ICD Codes: R79.89 - Other specified abnormal findings of blood chemistry SNOMED: 238085072 (14) Schizophrenia ICD Codes: F20.9 - Schizophrenia, unspecified SNOMED: 02986035 (15) Parkinson disease ICD Codes: G20 - Parkinson's disease SNOMED: 07765155 Status: progressing, unchanged Assessment/Plan: on lasix check lytes afebrile weak fluid overload prn bipap lethargy obesity covid negative metabolic contraction elevated co2 Subjective ROS Limited/Unobtainable: Yes Allergies: Coded Allergies: LITHIUM (Verified Allergy, Unknown, 02/07/19) Objective Last 24 Hour Vital Signs Date Time Temp Pulse Resp B/P (MAP) Pulse Ox O2 Delivery O2 Flow Rate FiO2 12/31/19 11:00 79 22 149/49 (82) 100 12/31/19 10:00 71 21 127/42 (70) 93 12/31/19 09:00 98.6 73 20 131/46 (74) 89 12/31/19 08:14 65 12/31/19 08:00 1.0 12/31/19 08:00 Nasal Cannula 1.0 12/31/19 08:00 68 19 135/36 (69) 97 12/31/19 07:11 96 Nasal Cannula 1.0 24 12/31/19 07:00 74 18 138/54 (82) 98 12/31/19 06:00 72 20 142/44 (76) 96 12/31/19 05:00 98.0 72 19 129/62 (84) 97 12/31/19 04:00 78 23 125/58 (80) 94 12/31/19 04:00 Nasal Cannula 1.0 12/31/19 04:00 75 12/31/19 04:00 1.0 12/31/19 03:00 61 20 120/38 (65) 96 12/31/19 02:00 74 19 124/42 (69) 98 12/31/19 01:00 97.8 68 18 125/40 (68) 96 12/31/19 00:00 64 17 120/37 (64) 93 12/31/19 00:00 65 12/31/19 00:00 Nasal Cannula 1.0 12/31/19 00:00 1.0 12/30/19 23:00 68 20 124/41 (68) 99 12/30/19 22:00 69 19 119/40 (66) 100 12/30/19 21:00 74 19 119/42 (67) 100 12/30/19 20:00 Nasal Cannula 1.0 12/30/19 20:00 98.4 73 22 117/30 (59) 100 12/30/19 20:00 1.0 12/30/19 19:36 100 Nasal Cannula 1.0 24 12/30/19 19:31 73 12/30/19 19:00 95 Nasal Cannula 1.0 24 12/30/19 19:00 74 19 139/43 (75) 100 12/30/19 18:00 77 18 99/79 (86) 99 12/30/19 17:00 76 18 124/44 (70) 12/30/19 16:00 10.0 40 12/30/19 16:00 97.6 75 19 121/44 (69) 99 12/30/19 16:00 Bi-pap 12/30/19 15:56 66 12/30/19 15:00 73 21 120/45 (70) 100 12/30/19 14:00 71 19 121/44 (69) 100 12/30/19 13:00 69 19 118/43 (68) 99 12/30/19 12:24 66 12/30/19 12:00 Bi-pap 12/30/19 12:00 98.5 70 16 107/42 (63) 99 12/30/19 12:00 10.0 40 Intake and Output 12/30/19 12/31/19 19:00 07:00 Intake Total 100 ml 460 ml Output Total 910 ml 1005 ml Balance -810 ml -545 ml Free Water 150 ml Tube Feeding 100 ml 310 ml Output Urine Total 910 ml 1005 ml Stool Total 0 ml 0 ml Laboratory Tests 12/30/19 18:27: POC Whole Blood Glucose 147H 12/30/19 20:03: Arterial Blood pH 7.382, Arterial Blood Partial Pressure CO2 62.0*H, Arterial Blood Partial Pressure O2 72.6L, Arterial Blood HCO3 36.0H, Arterial Blood Oxygen Saturation 93.8L, Arterial Blood Base Excess 9.2*H, Raphael Test Positive 12/30/19 23:28: POC Whole Blood Glucose 151H 12/31/19 00:42: POC Whole Blood Glucose 156H 12/31/19 05:00: Sodium Level 142, Potassium Level 3.9, Chloride Level 103, Carbon Dioxide Level 35H, Anion Gap 4L, Blood Urea Nitrogen 39H, Creatinine 0.9, Estimat Glomerular Filtration Rate > 60, Glucose Level 156H, Calcium Level 9.1, Phosphorus Level 3.4, Magnesium Level 2.2, Total Bilirubin 0.6, Aspartate Amino Transf (AST/SGOT ) 12L, Alanine Aminotransferase (ALT/SGPT) 27, Alkaline Phosphatase 42L, Total Protein 6.9, Albumin 3.1L, Globulin 3.8, Albumin/Globulin Ratio 0.8L, Thyroid Stimulating Hormone (TSH) 4.938H Height (Feet): 5 Height (Inches): 7.00 Weight (Pounds): 206 Dani Perera MD Dec 31, 2019 11:22
--- NOTE | 2019-12-31 12:50 | Hematology/Onc Progress Note ---
Assessment/Plan Assessment/Plan Assessment and Recs # Lower extremity edema in setting of elevated ddimer --> lower ext duplex ordered to r/o dvt-->neg for dvt --> lovenox sq has been started --> low threshold for v/q or cta r/o pe # Anemia of chronic disease --> hgb 11-->10.-->9->11.9-->10.8->7.8->11->10.8->10.2-->9.6->9.5->10.8-->12 --> no e/o hemolysis --> no bleeding reported --> smear reviewed --> no go bleeding # Leukocytosis r/o infection, likely steriods related --> wbc trend 10==>12-->14->15 --> steriods off --> abx off # Respiratory failure with copd exacerbation likely --> pulm toilet --> breathing rx --> steroids prn basis --> pulm eval ---> ABX per is on zosyn->now off # 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 ( combination of moderate aortic regurgitation and severe mitral regurgitation) --> diuresis as per cards --> lasix last time # Severe ascending aortic dilatation --> per Dr Keke campbell # Hypertension # Parkinson disease # Hyperlipidemia # Hypothyroidism # Dementia # Obesity # Schizophrenia --> as per [facility] --> restraints # Dvt ppx lovenox sq/scd's Appreciate image consultant care and alexei Rn Subjective Constitutional: Denies: no symptoms, chills, fever, malaise, weakness, other HEENT: Denies: no symptoms, eye pain, blurred vision, tearing, double vision, ear pain, ear discharge, nose pain, nose congestion, throat pain, throat swelling, mouth pain, mouth swelling, other Cardiovascular: Denies: no symptoms, chest pain, edema, irregular heart rate, lightheadedness, palpitations, syncope, other Respiratory: Denies: no symptoms, cough, shortness of breath, SOB with excertion, SOB at rest, sputum, wheezing, other Gastrointestinal/Abdominal: Denies: no symptoms, abdomen distended, abdominal pain, black stools, tarry stools, blood in stool, constipated, diarrhea, difficulty swallowing, nausea, poor appetite, poor fluid intake, rectal bleeding , vomiting, other Genitourinary: Denies: no symptoms, burning, discharge, frequency, flank pain, hematuria, incontinence, pain, urgency, other Endocrine: Denies: no symptoms, excessive sweating, flushing, intolerance to cold, intolerance to heat, increased hunger, increased thirst, increased urine, unexplained weight gain, unexplained weight loss, other Hematologic/Lymphatic: Denies: no symptoms, anemia, easy bleeding, easy bruising, adenopathy, other Allergies: Coded Allergies: LITHIUM (Verified Allergy, Unknown, 02/07/19) Subjective 12/12 labs are reviewed, intubated, with og, somewhat responsive, alexei rn 12/13 labs noted, hgb 7.8, tfs ok to start per gi 12/15 icu, restraints, no acute events, hep panel negative, sedated 12/16 no bleeding, in the icu, on abx, in restarints, sleepy, vent 12/17 is on vent, also is on abx, awake, with ogt 12/18 ng placed, hgb 9.6, no bleeding, no night sweats 12/19 labs reviewed, sedated, on vent, nob leeding, meds reviewed 12/20 remains on vent, audra bleeding, meds reviewed, no night sweats 12/22 hgb 9.5, to get zosyn x 1 more day, no night sweats meds reviewed 12/23 labs noted, no bleeding, with fm, no bleeding or night sweats 12/24 no bleeding, labs noted, no night sweats hgb 10, no hemolysis 12/25 remains fatigued, fm, labs are still pending from am 12/26 restraints, v mask, cxr reviewed 12/27 labs reviewed, no bleeding, hgb 10.8, no hemolysis on FM 12/29 remains disoriented on bipap and fm as needed, hgb better 12/30 wbc 15k, no bleeding, alexei rn, no night sweats off abx Objective Objective Current Medications Medications (Trade) Dose Ordered Sig/Angie Route PRN Reason Start Time Stop Time Status Last Admin Dose Admin Acetaminophen (Tylenol) 650 mg Q6H PRN ORAL Mild Pain (Pain Scale 1-3) 12/12/19 12:30 01/11/20 12:29 12/22/19 20:56 Acetaminophen (Tylenol) 1,000 mg Q6H PRN ORAL MODERATE PAIN 12/12/19 12:30 01/11/20 12:29 Amantadine HCl (Symmetrel) 100 mg TWICE A DAY ORAL 12/22/19 18:00 01/11/20 08:59 12/31/19 08:24 Aspirin (ASA) 324 mg DAILY ORAL 12/23/19 09:00 02/04/20 08:59 12/31/19 08:23 Atorvastatin Calcium (Lipitor) 10 mg BEDTIME ORAL 12/22/19 21:00 03/11/20 20:59 12/30/19 20:48 Calcium Carbonate (Os-Octavio) 500 mg THREE TIMES A DAY ORAL 12/22/19 13:00 03/20/20 17:59 12/31/19 08:24 Clonidine HCl (Catapres Tab) 0.1 mg Q6H PRN GT For high BP over 160 systolic 12/15/19 16:30 03/11/20 12:30 12/24/19 01:47 Dextrose (Dextrose 50%) 25 ml Q30M PRN IV Hypoglycemia 12/13/19 07:15 03/12/20 07:14 Dextrose (Dextrose 50%) 50 ml Q30M PRN IV Hypoglycemia 12/13/19 07:15 03/12/20 07:14 Divalproex Sodium (Depakote) 250 mg EVERY 12 HOURS ORAL 12/22/19 21:00 01/12/20 20:59 12/31/19 08:23 Docusate Sodium (Colace) 100 mg TWICE A DAY ORAL 12/22/19 18:00 01/14/20 17:59 12/29/19 09:01 Insulin Aspart (NovoLOG) EVERY 6 HOURS SUBQ 12/13/19 12:00 03/12/20 11:59 12/31/19 06:29 Lactulose (Cephulac) 20 gm BID ORAL 12/25/19 09:00 01/24/20 08:59 12/31/19 08:23 Levothyroxine Sodium (Synthroid) 100 mcg DAILY IV 12/27/19 09:00 01/11/20 09:29 12/31/19 08:23 Methylprednisolone Sodium Succinate (Solu-MEDROL) 20 mg EVERY 6 HOURS IVP 12/22/19 12:00 10/20 11:59 12/31/19 12:42 Nitroglycerin (Ntg) 0.4 mg Q5MIN X 3 DOSES PRN SL CHEST PAIN 12/12/19 12:00 01/10/20 21:44 Pantoprazole (Protonix) 40 mg EVERY 12 HOURS IVP 12/14/19 09:00 01/13/20 08:59 12/31/19 08:23 Polyethylene Glycol (Miralax) 17 gm BEDTIME ORAL 12/22/19 21:00 01/18/20 20:59 12/28/19 20:27 Polyethylene Glycol (Miralax) 17 gm DAILYPRN PRN ORAL Constipation 12/24/19 19:00 01/23/20 18:59 Quetiapine Fumarate (SEROqueL) 50 mg Q12HR ORAL 12/22/19 21:00 02/05/20 20:59 12/31/19 08:23 Last 24 Hour Vital Signs Date Time Temp Pulse Resp B/P (MAP) Pulse Ox O2 Delivery O2 Flow Rate FiO2 12/31/19 12:00 Nasal Cannula 1.0 12/31/19 12:00 1.0 12/31/19 12:00 98.6 70 20 127/44 (71) 100 12/31/19 11:53 67 12/31/19 11:00 79 22 149/49 (82) 100 12/31/19 10:00 71 21 127/42 (70) 93 12/31/19 09:00 98.6 73 20 131/46 (74) 89 12/31/19 08:14 65 12/31/19 08:00 1.0 12/31/19 08:00 Nasal Cannula 1.0 12/31/19 08:00 68 19 135/36 (69) 97 12/31/19 07:11 96 Nasal Cannula 1.0 24 12/31/19 07:00 74 18 138/54 (82) 98 12/31/19 06:00 72 20 142/44 (76) 96 12/31/19 05:00 98.0 72 19 129/62 (84) 97 12/31/19 04:00 78 23 125/58 (80) 94 12/31/19 04:00 Nasal Cannula 1.0 12/31/19 04:00 75 7/20/20 04:00 1.0 12/31/19 03:00 61 20 120/38 (65) 96 12/31/19 02:00 74 19 124/42 (69) 98 12/31/19 01:00 97.8 68 18 125/40 (68) 96 12/31/19 00:00 64 17 120/37 (64) 93 12/31/19 00:00 65 12/31/19 00:00 Nasal Cannula 1.0 12/31/19 00:00 1.0 12/30/19 23:00 68 20 124/41 (68) 99 12/30/19 22:00 69 19 119/40 (66) 100 12/30/19 21:00 74 19 119/42 (67) 100 12/30/19 20:00 Nasal Cannula 1.0 12/30/19 20:00 98.4 73 22 117/30 (59) 100 12/30/19 20:00 1.0 12/30/19 19:36 100 Nasal Cannula 1.0 24 12/30/19 19:31 73 12/30/19 19:00 95 Nasal Cannula 1.0 24 12/30/19 19:00 74 19 139/43 (75) 100 12/30/19 18:00 77 18 99/79 (86) 99 12/30/19 17:00 76 18 124/44 (70) 12/30/19 16:00 10.0 40 12/30/19 16:00 97.6 75 19 121/44 (69) 99 12/30/19 16:00 Bi-pap 12/30/19 15:56 66 12/30/19 15:00 73 21 120/45 (70) 100 12/30/19 14:00 71 19 121/44 (69) 100 12/30/19 13:00 69 19 118/43 (68) 99 12/30/19 12:24 66 12/30/19 12:00 Bi-pap 12/30/19 12:00 98.5 70 16 107/42 (63) 99 12/30/19 12:00 10.0 40 12/30/19 11:00 75 17 116/37 (63) 97 12/30/19 10:00 74 20 119/46 (70) 100 12/30/19 09:00 75 21 132/40 (70) 99 12/30/19 08:00 Bi-pap 12/30/19 08:00 97.5 75 19 138/32 (67) 100 12/30/19 08:00 10.0 40 12/30/19 07:24 95 Venturi Mask 8.0 40 12/30/19 07:12 78 12/30/19 07:00 81 19 136/63 (87) 100 12/30/19 06:00 78 23 128/91 (103) 12/30/19 05:00 66 17 117/43 (67) 98 12/30/19 04:00 10.0 40 12/30/19 04:00 Bi-pap 12/30/19 04:00 67 19 118/43 (68) 100 12/30/19 04:00 67 12/30/19 03:00 72 19 123/41 (68) 100 12/30/19 02:00 73 21 119/44 (69) 100 12/30/19 01:00 75 18 116/42 (66) 96 12/30/19 00:00 Bi-pap 12/30/19 00:00 73 12/30/19 00:00 73 19 120/44 (69) 100 12/30/19 00:00 10.0 40 12/29/19 23:51 100 Venturi Mask 8.0 40 12/29/19 23:00 74 19 120/42 (68) 95 12/29/19 22:00 74 19 107/42 (63) 99 12/29/19 21:00 80 19 111/40 (63) 100 12/29/19 20:00 76 12/29/19 20:00 Bi-pap 12/29/19 20:00 98.4 76 21 110/24 (52) 99 12/29/19 20:00 10.0 45 12/29/19 19:47 100 Venturi Mask 10.0 45 12/29/19 19:00 79 17 119/46 (70) 98 12/29/19 18:00 98.3 76 19 105/40 (61) 98 12/29/19 17:00 83 22 116/38 (64) 98 12/29/19 16:00 83 12/29/19 16:00 10.0 45 12/29/19 16:00 84 20 121/48 (72) 100 12/29/19 16:00 Bi-pap 12/29/19 15:00 79 20 114/55 (74) 100 12/29/19 14:00 83 23 133/62 (85) 99 12/29/19 13:00 97.7 79 17 120/52 (74) 100 Intake and Output 12/30/19 12/31/19 19:00 07:00 Intake Total 100 ml 460 ml Output Total 910 ml 1005 ml Balance -810 ml -545 ml Free Water 150 ml Tube Feeding 100 ml 310 ml Output Urine Total 910 ml 1005 ml Stool Total 0 ml 0 ml Labs Test 12/28/19 13:01 12/28/19 18:09 12/28/19 23:07 12/29/19 03:20 POC Whole Blood Glucose 171 MG/DL (74-106) White Blood Count 9.1 K/UL (4.8-10.8) Red Blood Count 3.23 M/UL (4.20-5.40) Hemoglobin 10.4 G/DL (12.0-16.0) Hematocrit 32.8 % (37.0-47.0) Mean Corpuscular Volume 102 FL (80-99) Mean Corpuscular Hemoglobin 32.2 PG (27.0-31.0) Mean Corpuscular Hemoglobin Concent 31.7 G/DL (32.0-36.0) Red Cell Distribution Width 12.9 % (11.6-14.8) Platelet Count 185 K/UL (150-450) Mean Platelet Volume 7.3 FL (6.5-10.1) Neutrophils (%) (Auto) 84.2 % (45.0-75.0) Lymphocytes (%) (Auto) 9.4 % (20.0-45.0) Monocytes (%) (Auto) 5.9 % (1.0-10.0) Eosinophils (%) (Auto) 0.2 % (0.0-3.0) Basophils (%) (Auto) 0.3 % (0.0-2.0) Sodium Level 142 MMOL/L (136-145) Potassium Level 3.2 MMOL/L (3.5-5.1) Chloride Level 98 MMOL/L (98-107) Carbon Dioxide Level 44 MMOL/L (21-32) Anion Gap 0 mmol/L (5-15) Blood Urea Nitrogen 39 mg/dL (7-18) Creatinine 0.9 MG/DL (0.55-1.30) Estimat Glomerular Filtration Rate > 60 mL/min (>60) Glucose Level 193 MG/DL (74-106) Calcium Level 8.3 MG/DL (8.5-10.1) Phosphorus Level 3.5 MG/DL (2.5-4.9) Magnesium Level 1.9 MG/DL (1.8-2.4) Total Bilirubin 0.5 MG/DL (0.2-1.0) Aspartate Amino Transf (AST/SGOT) 13 U/L (15-37) Alanine Aminotransferase (ALT/SGPT) 30 U/L (12-78) Alkaline Phosphatase 39 U/L (46-116) C-Reactive Protein, Quantitative 1.8 mg/dL (0.00-0.90) Pro-B-Type Natriuretic Peptide 14108 pg/mL (0-125) Total Protein 6.4 G/DL (6.4-8.2) Albumin 2.9 G/DL (3.4-5.0) Globulin 3.5 g/dL Albumin/Globulin Ratio 0.8 (1.0-2.7) Test 12/29/19 05:25 12/29/19 08:26 12/29/19 11:16 12/30/19 04:38 POC Whole Blood Glucose 187 MG/DL (74-106) Arterial Blood pH 7.453 (7.350-7.450) 7.414 (7.350-7.450) Arterial Blood Partial Pressure CO2 66.6 mmHg (35.0-45.0) 74.3 mmHg (35.0-45.0) Arterial Blood Partial Pressure O2 73.6 mmHg (75.0-100.0) 94.7 mmHg (75.0-100.0) Arterial Blood HCO3 45.6 mmol/L (22.0-26.0) 46.5 mmol/L (22.0-26.0) Arterial Blood Oxygen Saturation 94.4 % (95-100) 96.4 % (95-100) Arterial Blood Base Excess 18.5 (-2-2) 18.6 (-2-2) Raphael Test Positive Positive White Blood Count 14.9 K/UL (4.8-10.8) Red Blood Count 3.94 M/UL (4.20-5.40) Hemoglobin 12.7 G/DL (12.0-16.0) Hematocrit 39.3 % (37.0-47.0) Mean Corpuscular Volume 100 FL (80-99) Mean Corpuscular Hemoglobin 32.3 PG (27.0-31.0) Mean Corpuscular Hemoglobin Concent 32.4 G/DL (32.0-36.0) Red Cell Distribution Width 13.1 % (11.6-14.8) Platelet Count 209 K/UL (150-450) Mean Platelet Volume 8.9 FL (6.5-10.1) Neutrophils (%) (Auto) 84.2 % (45.0-75.0) Lymphocytes (%) (Auto) 10.2 % (20.0-45.0) Monocytes (%) (Auto) 5.2 % (1.0-10.0) Eosinophils (%) (Auto) 0.0 % (0.0-3.0) Basophils (%) (Auto) 0.4 % (0.0-2.0) Sodium Level 140 MMOL/L (136-145) Potassium Level 3.8 MMOL/L (3.5-5.1) Chloride Level 100 MMOL/L (98-107) Carbon Dioxide Level 35 MMOL/L (21-32) Anion Gap 5 mmol/L (5-15) Blood Urea Nitrogen 41 mg/dL (7-18) Creatinine 0.8 MG/DL (0.55-1.30) Estimat Glomerular Filtration Rate > 60 mL/min (>60) Glucose Level 118 MG/DL (74-106) Calcium Level 9.1 MG/DL (8.5-10.1) Total Bilirubin 0.6 MG/DL (0.2-1.0) Aspartate Amino Transf (AST/SGOT) 15 U/L (15-37) Alanine Aminotransferase (ALT/SGPT) 32 U/L (12-78) Alkaline Phosphatase 42 U/L (46-116) Ammonia 17 umol/L (11-32) Total Protein 6.9 G/DL (6.4-8.2) Albumin 3.2 G/DL (3.4-5.0) Globulin 3.7 g/dL Albumin/Globulin Ratio 0.9 (1.0-2.7) Test 12/30/19 18:27 12/30/19 20:03 12/30/19 23:28 12/31/19 00:42 POC Whole Blood Glucose 147 MG/DL (74-106) 151 MG/DL (74-106) 156 MG/DL (74-106) Arterial Blood pH 7.382 (7.350-7.450) Arterial Blood Partial Pressure CO2 62.0 mmHg (35.0-45.0) Arterial Blood Partial Pressure O2 72.6 mmHg (75.0-100.0) Arterial Blood HCO3 36.0 mmol/L (22.0-26.0) Arterial Blood Oxygen Saturation 93.8 % (95-100) Arterial Blood Base Excess 9.2 (-2-2) Raphael Test Positive Test 12/31/19 05:00 Sodium Level 142 MMOL/L (136-145) Potassium Level 3.9 MMOL/L (3.5-5.1) Chloride Level 103 MMOL/L (98-107) Carbon Dioxide Level 35 MMOL/L (21-32) Anion Gap 4 mmol/L (5-15) Blood Urea Nitrogen 39 mg/dL (7-18) Creatinine 0.9 MG/DL (0.55-1.30) Estimat Glomerular Filtration Rate > 60 mL/min (>60) Glucose Level 156 MG/DL (74-106) Calcium Level 9.1 MG/DL (8.5-10.1) Phosphorus Level 3.4 MG/DL (2.5-4.9) Magnesium Level 2.2 MG/DL (1.8-2.4) Total Bilirubin 0.6 MG/DL (0.2-1.0) Aspartate Amino Transf (AST/SGOT) 12 U/L (15-37) Alanine Aminotransferase (ALT/SGPT) 27 U/L (12-78) Alkaline Phosphatase 42 U/L (46-116) Total Protein 6.9 G/DL (6.4-8.2) Albumin 3.1 G/DL (3.4-5.0) Globulin 3.8 g/dL Albumin/Globulin Ratio 0.8 (1.0-2.7) Thyroid Stimulating Hormone (TSH) 4.938 uiU/mL (0.358-3.740) Height (Feet): 5 Height (Inches): 7.00 Weight (Pounds): 206 Objective Vitals: reviewed General: NAD HEENT: nc, at ++ngt, v mask+ Neck: supple Chest: decreased breath sounds bilaterally Cardiovascular: RRR, no s3, s4 Abdomen: soft, nontender, nd Extremities: 1-2 + edema, scd's Neuro: nonverbal : iman+ Frank Escobar MD Dec 31, 2019 12:50
--- NOTE | 2019-12-31 14:44 | NUR ---
NURSE NOTES: Patient is resting in bed showing no signs of acute distress. Will continue to monitor.
--- NOTE | 2019-12-31 15:55 | Cardiac Electrophysiology PN ---
Assessment/Plan Assessment/Plan 1. Recurrent respiratory failure with BNP of more than 19,000. Echo showed normal EF. On 2 liter NC. Off Lasix 2. Bradycardia requiring atropine due to respiratory failure . No further 3. Bilateral UE edema. Venous Duplex was negative on 12/12/19. 4. History of Parkinson disease. 5. Hyperlipidemia. YOSELYN RN Subjective Subjective Ononly 1 liter Nasal Cannula in ICU. Transfer to SDU pending Objective Last 24 Hour Vital Signs Date Time Temp Pulse Resp B/P (MAP) Pulse Ox O2 Delivery O2 Flow Rate FiO2 12/31/19 14:00 70 17 137/39 (71) 99 12/31/19 13:00 71 20 135/41 (72) 99 12/31/19 12:00 Nasal Cannula 1.0 12/31/19 12:00 1.0 12/31/19 12:00 98.6 70 20 127/44 (71) 100 12/31/19 11:53 67 12/31/19 11:00 79 22 149/49 (82) 100 12/31/19 10:00 71 21 127/42 (70) 93 12/31/19 09:00 98.6 73 20 131/46 (74) 89 12/31/19 08:14 65 12/31/19 08:00 1.0 12/31/19 08:00 Nasal Cannula 1.0 12/31/19 08:00 68 19 135/36 (69) 97 12/31/19 07:11 96 Nasal Cannula 1.0 24 12/31/19 07:00 74 18 138/54 (82) 98 12/31/19 06:00 72 20 142/44 (76) 96 12/31/19 05:00 98.0 72 19 129/62 (84) 97 12/31/19 04:00 78 23 125/58 (80) 94 12/31/19 04:00 Nasal Cannula 1.0 12/31/19 04:00 75 12/31/19 04:00 1.0 12/31/19 03:00 61 20 120/38 (65) 96 12/31/19 02:00 74 19 124/42 (69) 98 12/31/19 01:00 97.8 68 18 125/40 (68) 96 12/31/19 00:00 64 17 120/37 (64) 93 12/31/19 00:00 65 12/31/19 00:00 Nasal Cannula 1.0 12/31/19 00:00 1.0 12/30/19 23:00 68 20 124/41 (68) 99 12/30/19 22:00 69 19 119/40 (66) 100 12/30/19 21:00 74 19 119/42 (67) 100 12/30/19 20:00 Nasal Cannula 1.0 12/30/19 20:00 98.4 73 22 117/30 (59) 100 12/30/19 20:00 1.0 12/30/19 19:36 100 Nasal Cannula 1.0 24 12/30/19 19:31 73 12/30/19 19:00 95 Nasal Cannula 1.0 24 12/30/19 19:00 74 19 139/43 (75) 100 12/30/19 18:00 77 18 99/79 (86) 99 12/30/19 17:00 76 18 124/44 (70) 12/30/19 16:00 10.0 40 12/30/19 16:00 97.6 75 19 121/44 (69) 99 12/30/19 16:00 Bi-pap 12/30/19 15:56 66 Intake and Output 12/30/19 12/31/19 19:00 07:00 Intake Total 100 ml 460 ml Output Total 910 ml 1005 ml Balance -810 ml -545 ml Free Water 150 ml Tube Feeding 100 ml 310 ml Output Urine Total 910 ml 1005 ml Stool Total 0 ml 0 ml Laboratory Tests Test 12/30/19 18:27 12/30/19 20:03 12/30/19 23:28 12/31/19 00:42 POC Whole Blood Glucose 147 MG/DL (74-106) H 151 MG/DL (74-106) H 156 MG/DL (74-106) H Arterial Blood pH 7.382 (7.350-7.450) Arterial Blood Partial Pressure CO2 62.0 mmHg (35.0-45.0) *H Arterial Blood Partial Pressure O2 72.6 mmHg (75.0-100.0) L Arterial Blood HCO3 36.0 mmol/L (22.0-26.0) H Arterial Blood Oxygen Saturation 93.8 % (95-100) L Arterial Blood Base Excess 9.2 (-2-2) *H Raphael Test Positive Test 12/31/19 05:00 Sodium Level 142 MMOL/L (136-145) Potassium Level 3.9 MMOL/L (3.5-5.1) Chloride Level 103 MMOL/L (98-107) Carbon Dioxide Level 35 MMOL/L (21-32) H Anion Gap 4 mmol/L (5-15) L Blood Urea Nitrogen 39 mg/dL (7-18) H Creatinine 0.9 MG/DL (0.55-1.30) Estimat Glomerular Filtration Rate > 60 mL/min (>60) Glucose Level 156 MG/DL (74-106) H Calcium Level 9.1 MG/DL (8.5-10.1) Phosphorus Level 3.4 MG/DL (2.5-4.9) Magnesium Level 2.2 MG/DL (1.8-2.4) Total Bilirubin 0.6 MG/DL (0.2-1.0) Aspartate Amino Transf (AST/SGOT) 12 U/L (15-37) L Alanine Aminotransferase (ALT/SGPT) 27 U/L (12-78) Alkaline Phosphatase 42 U/L (46-116) L Total Protein 6.9 G/DL (6.4-8.2) Albumin 3.1 G/DL (3.4-5.0) L Globulin 3.8 g/dL Albumin/Globulin Ratio 0.8 (1.0-2.7) L Thyroid Stimulating Hormone (TSH) 4.938 uiU/mL (0.358-3.740) Objective HEAD AND NECK: No JVD. LUNGS: Coarse rhonchi. CARDIOVASCULAR: Regular S1 and S2 and tachycardic. ABDOMEN: Soft. EXTREMITIES: Bilateral Arm edema. Cameron Davies MD Dec 31, 2019 15:55
--- NOTE | 2019-12-31 16:04 | Pulmonology Progress Note ---
Subjective ROS Limited/Unobtainable: Yes Interval Events: Extubated 12/21/19; did well on VENTIMASK; now on nasal o2 HEENT: Repors: no symptoms Respiratory: Reports: no symptoms Cardiovascular: Reports: no symptoms Gastrointestinal/Abdominal: Reports: no symptoms Genitourinary: Reports: no symptoms Allergies: Coded Allergies: LITHIUM (Verified Allergy, Unknown, 02/07/19) All Systems: reviewed and negative except above Objective Last 24 Hour Vital Signs Date Time Temp Pulse Resp B/P (MAP) Pulse Ox O2 Delivery O2 Flow Rate FiO2 12/31/19 14:00 70 17 137/39 (71) 99 12/31/19 13:00 71 20 135/41 (72) 99 12/31/19 12:00 Nasal Cannula 1.0 12/31/19 12:00 1.0 12/31/19 12:00 98.6 70 20 127/44 (71) 100 12/31/19 11:53 67 12/31/19 11:00 79 22 149/49 (82) 100 12/31/19 10:00 71 21 127/42 (70) 93 12/31/19 09:00 98.6 73 20 131/46 (74) 89 12/31/19 08:14 65 12/31/19 08:00 1.0 12/31/19 08:00 Nasal Cannula 1.0 12/31/19 08:00 68 19 135/36 (69) 97 12/31/19 07:11 96 Nasal Cannula 1.0 24 12/31/19 07:00 74 18 138/54 (82) 98 12/31/19 06:00 72 20 142/44 (76) 96 12/31/19 05:00 98.0 72 19 129/62 (84) 97 12/31/19 04:00 78 23 125/58 (80) 94 12/31/19 04:00 Nasal Cannula 1.0 12/31/19 04:00 75 12/31/19 04:00 1.0 12/31/19 03:00 61 20 120/38 (65) 96 12/31/19 02:00 74 19 124/42 (69) 98 12/31/19 01:00 97.8 68 18 125/40 (68) 96 12/31/19 00:00 64 17 120/37 (64) 93 12/31/19 00:00 65 12/31/19 00:00 Nasal Cannula 1.0 12/31/19 00:00 1.0 12/30/19 23:00 68 20 124/41 (68) 99 12/30/19 22:00 69 19 119/40 (66) 100 12/30/19 21:00 74 19 119/42 (67) 100 12/30/19 20:00 Nasal Cannula 1.0 12/30/19 20:00 98.4 73 22 117/30 (59) 100 12/30/19 20:00 1.0 12/30/19 19:36 100 Nasal Cannula 1.0 24 12/30/19 19:31 73 12/30/19 19:00 95 Nasal Cannula 1.0 24 12/30/19 19:00 74 19 139/43 (75) 100 12/30/19 18:00 77 18 99/79 (86) 99 12/30/19 17:00 76 18 124/44 (70) Intake and Output 12/30/19 12/31/19 19:00 07:00 Intake Total 100 ml 460 ml Output Total 910 ml 1005 ml Balance -810 ml -545 ml Free Water 150 ml Tube Feeding 100 ml 310 ml Output Urine Total 910 ml 1005 ml Stool Total 0 ml 0 ml General Appearance: no acute distress Respiratory: chest wall non-tender, lungs clear Cardiovascular: normal peripheral pulses, normal rate Abdomen: normal bowel sounds Laboratory Tests 12/30/19 18:27: POC Whole Blood Glucose 147H 12/30/19 20:03: Arterial Blood pH 7.382, Arterial Blood Partial Pressure CO2 62.0*H, Arterial Blood Partial Pressure O2 72.6L, Arterial Blood HCO3 36.0H, Arterial Blood Oxygen Saturation 93.8L, Arterial Blood Base Excess 9.2*H, Raphael Test Positive 12/30/19 23:28: POC Whole Blood Glucose 151H 12/31/19 00:42: POC Whole Blood Glucose 156H 12/31/19 05:00: Sodium Level 142, Potassium Level 3.9, Chloride Level 103, Carbon Dioxide Level 35H, Anion Gap 4L, Blood Urea Nitrogen 39H, Creatinine 0.9, Estimat Glomerular Filtration Rate > 60, Glucose Level 156H, Calcium Level 9.1, Phosphorus Level 3.4, Magnesium Level 2.2, Total Bilirubin 0.6, Aspartate Amino Transf (AST/SGOT ) 12L, Alanine Aminotransferase (ALT/SGPT) 27, Alkaline Phosphatase 42L, Total Protein 6.9, Albumin 3.1L, Globulin 3.8, Albumin/Globulin Ratio 0.8L, Thyroid Stimulating Hormone (TSH) 4.938H Current Medications Medications (Trade) Dose Ordered Sig/Angie Route PRN Reason Start Time Stop Time Status Last Admin Dose Admin Acetaminophen (Tylenol) 650 mg Q6H PRN ORAL Mild Pain (Pain Scale 1-3) 12/12/19 12:30 01/11/20 12:29 12/22/19 20:56 Acetaminophen (Tylenol) 1,000 mg Q6H PRN ORAL MODERATE PAIN 12/12/19 12:30 01/11/20 12:29 Amantadine HCl (Symmetrel) 100 mg TWICE A DAY ORAL 12/22/19 18:00 01/11/20 08:59 12/31/19 08:24 Aspirin (ASA) 324 mg DAILY ORAL 12/23/19 09:00 02/04/20 08:59 12/31/19 08:23 Atorvastatin Calcium (Lipitor) 10 mg BEDTIME ORAL 12/22/19 21:00 03/11/20 20:59 12/30/19 20:48 Calcium Carbonate (Os-Octavio) 500 mg THREE TIMES A DAY ORAL 12/22/19 13:00 03/20/20 17:59 12/31/19 08:24 Clonidine HCl (Catapres Tab) 0.1 mg Q6H PRN GT For high BP over 160 systolic 12/15/19 16:30 03/11/20 12:30 12/24/19 01:47 Dextrose (Dextrose 50%) 25 ml Q30M PRN IV Hypoglycemia 12/13/19 07:15 03/12/20 07:14 Dextrose (Dextrose 50%) 50 ml Q30M PRN IV Hypoglycemia 12/13/19 07:15 03/12/20 07:14 Divalproex Sodium (Depakote) 250 mg EVERY 12 HOURS ORAL 12/22/19 21:00 01/12/20 20:59 12/31/19 08:23 Docusate Sodium (Colace) 100 mg TWICE A DAY ORAL 12/22/19 18:00 01/14/20 17:59 12/29/19 09:01 Insulin Aspart (NovoLOG) EVERY 6 HOURS SUBQ 12/13/19 12:00 03/12/20 11:59 12/31/19 06:29 Lactulose (Cephulac) 20 gm BID ORAL 12/25/19 09:00 01/24/20 08:59 12/31/19 08:23 Levothyroxine Sodium (Synthroid) 100 mcg DAILY IV 12/27/19 09:00 01/11/20 09:29 12/31/19 08:23 Methylprednisolone Sodium Succinate (Solu-MEDROL) 20 mg EVERY 6 HOURS IVP 12/22/19 12:00 03/18/20 11:59 12/31/19 12:42 Nitroglycerin (Ntg) 0.4 mg Q5MIN X 3 DOSES PRN SL CHEST PAIN 12/12/19 12:00 01/10/20 21:44 Pantoprazole (Protonix) 40 mg EVERY 12 HOURS IVP 12/14/19 09:00 01/13/20 08:59 12/31/19 08:23 Polyethylene Glycol (Miralax) 17 gm BEDTIME ORAL 12/22/19 21:00 01/18/20 20:59 12/28/19 20:27 Polyethylene Glycol (Miralax) 17 gm DAILYPRN PRN ORAL Constipation 12/24/19 19:00 01/23/20 18:59 Quetiapine Fumarate (SEROqueL) 50 mg Q12HR ORAL 12/22/19 21:00 02/05/20 20:59 12/31/19 08:23 Assessment/Plan Assessment/Plan IMPRESSION: 1. Respiratory failure. Improved; remains intermittently on BiPPA vs Ventimask; now on nasal o2 2. Has healthcare-associated pneumonia; is negative for COVID-19. 3. Psych disorder. 4. Obesity. 5. Hypertension. 6. Hypernatremia DISCUSSION: Continue broad spectrum antibiotics. Off olanzepine Has negative COVID-19 swab. On Seroquel; on decreased dose Off steroids Off Lasix and Diamox Has diuresed well mEerita Fan Omar Syed MD Dec 31, 2019 16:04
--- NOTE | 2019-12-31 16:32 | NUR ---
CASE MANAGEMENT: REVIEW SI: COPD EXACERBATION . PNA T 98.6 HR 701 RR 20 BP 127/44 SAT 100% NC/2L GLUCOSE 156 AB/19 PH 7.382 PCO2 62.0 PO2 72.6 HCO3 36.0 SAT 93.8 BASE 9.2 IS: SOLU MEDROL IV Q6HR SYNTHROID 100MCG IV QD PROTONIX IV Q12HR BIPAP PRN STEP DOWN UNIT STATUS DCP: PATIENT IS FROM [facility]
--- NOTE | 2019-12-31 18:55 | NUR ---
ST NOTE GRANITE SETTER ORDERS RECEIVED AND ACKNOWLEDGED FOR GRANITE SETTER BEDSIDE SWALLOW EVALUATION FROM DR. BARBOSA. UNABLE TO BE COMPLETED DUE TO GRANITE SETTER'S TIME LIMITATIONS. GRANITE SETTER PLANS TO COMPLETE TOMORROW 01/01/20. THANK YOU FOR THIS REFERRAL. GRANITE SETTER [id number]
--- NOTE | 2019-12-31 19:07 | NUR ---
HAND-OFF: Report given to Annabella ROJO. Addendum: 12/31/19 at 1908 by Imer Vivas RN HAND-OFF: Report given to Kilo TAMEZ
--- NOTE | 2019-12-31 19:08 | NUR ---
NURSE NOTES: Received patient from DARREL Melgar. Patient is aaox 1 to name, verbal, vss, on night monitor, and no acute distress. Patient is clean and on restrains with all needs met. Patient's upper extremities have pulses and capillary refill is less then 3 seconds. NG tube no longer in place; patient removed NG tube. No skin issues noted. IV site on her right forearm 22g is patent with signs of infection. Bed at its lowest position, call light in reach and bed rails x3 are up. Will continue to monitor.
--- NOTE | 2019-12-31 20:10 | NUR ---
TRANSFER TO FLOOR: Patient transferred to SDU, per Dr. Myers. Report given to DARREL Slade. Belongings and medications given to DARREL Slade. Family and or S/O informed of transfer. Addendum: 12/31/19 at 2231 by Kilo Junior RN Time correction 0 TRANSFER TO FLOOR: Patient transferred to SDU, per Dr. Myers. Report given to DARREL Slade. Belongings and medications given to DARREL Slade. Family and or S/O informed of transfer.
[2019-12-31] MEDS: Miralax 17gm pkt ORAL SCH (21:00)
--- NOTE | 2019-12-31 21:22 | NUR ---
NURSE NOTES: NG-tube inserted in left nares. Waiting for x-ray confirmation.
--- NOTE | 2019-12-31 22:10 | NUR ---
NURSE NOTES: Received pt's report from DARREL Boateng. Pt is transferred from ICU via pt's bed. bus monitor initiated. Pt is on O2 1L via NC. No s/s of respiratory distress noted. Her VS; BP 120/44, RR 22, HR 72, SpO2 95%, Temp 98.1F. Pt is A/O x 1 by name. Pt seemed to understand command. Pt is on NGT which is just replaced in ICU. We are waiting for the KUB. Physical assessment done, pupil 4, PERRLA, BRISK for both eyes. One non-blanchable DTI wound, 5x3 on left gluteus silvano, pictures taken and uploaded. IV line on right hand clean and patent noted. Pt is under the care of Dr. Perera. Will continue to monitor with plan of care.
[2019-12-31] MEDS ORDERED: Nitroglycerin Subl 0.4mg tab SL PRN (22:30)
--- NOTE | 2019-12-31 23:54 | Diagnostic Imaging Report ---
EXAM: XR Abdomen, 2 Views CLINICAL HISTORY: NGT TECHNIQUE: Frontal view of the abdomen/pelvis with upright view of the abdomen. COMPARISON: 12/30/2019 FINDINGS: Lower thorax: Suboptimal lung base visualization. Intraperitoneal space: No free air. Gastrointestinal tract: Unremarkable. No dilation. Bones/joints: Unremarkable. Tubes, lines and devices: Enteric tube with tip and proximal sideport below the gastroesophageal junction. Other findings: High density rounded structures in the right lower quadrant again seen. IMPRESSION: Enteric tube with tip and proximal sideport below the gastroesophageal junction.
[2020-01-01] VITALS: BP 126/60
[2020-01-01] MEDS ORDERED: Acetaminophen 500mg (ES) tab ORAL PRN (00:30)
[2020-01-01] MEDS: Solu-MEDROL 40mg Inj IVP SCH ×5 (00:38→23:06)
[2020-01-01] MEDS: NovoLOG Insulin Flexpen SUBQ SCH ×5 (05:37→23:05)
--- NOTE | 2020-01-01 06:48 | General Progress Note ---
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 - Other specified diabetes mellitus without complications SNOMED: 846674387 (2) Parkinson disease ICD Codes: G20 - Parkinson's disease SNOMED: 44270192 (3) Schizophrenia ICD Codes: F20.9 - Schizophrenia, unspecified SNOMED: 86374310 (4) Hypertension ICD Codes: I10 - Essential (primary) hypertension SNOMED: 50551658 (5) Respiratory failure ICD Codes: J96.90 - Respiratory failure, unspecified, unspecified whether with hypoxia or hypercapnia SNOMED: 064634689 (6) Hypothyroidism ICD Codes: E03.9 - Hypothyroidism, unspecified SNOMED: 11198032 Status: progressing, unchanged Assessment/Plan: TSH improved - continue Levothyroxine 75 mcg IV daily continue Novolog sliding scale every 6 hours hypoglycemia protocol in order Subjective Allergies: Coded Allergies: LITHIUM (Verified Allergy, Unknown, 02/07/19) Subjective events noted glucose values are stable TSH improved Item Value Date Time Bedside Blood Glucose 165 mg/dl H 01/01/20 0537 Bedside Blood Glucose 138 mg/dl H 01/01/20 0042 Bedside Blood Glucose 111 mg/dl 12/31/19 1800 Bedside Blood Glucose 136 mg/dl H 12/31/19 1200 Bedside Blood Glucose 141 mg/dl H 12/31/19 0629 Bedside Blood Glucose 151 mg/dl H 12/31/19 0000 Objective Last 24 Hour Vital Signs Date Time Temp Pulse Resp B/P (MAP) Pulse Ox O2 Delivery O2 Flow Rate FiO2 01/01/20 04:00 69 01/01/20 04:00 2.0 01/01/20 04:00 Nasal Cannula 2.0 01/01/20 00:00 2.0 01/01/20 00:00 97.7 73 20 126/60 (82) 100 01/01/20 00:00 Nasal Cannula 2.0 12/31/19 23:35 73 12/31/19 22:10 98.1 72 20 120/44 (69) 95 12/31/19 21:00 74 20 140/46 (77) 100 12/31/19 20:00 98.0 78 20 140/59 (86) 98 12/31/19 20:00 Nasal Cannula 1.0 12/31/19 20:00 76 12/31/19 20:00 1.0 12/31/19 19:05 99 Nasal Cannula 1.0 24 12/31/19 19:00 72 21 124/42 (69) 100 12/31/19 18:00 98.7 79 24 121/91 (101) 99 12/31/19 17:00 81 21 154/47 (82) 100 12/31/19 16:00 Nasal Cannula 1.0 12/31/19 16:00 1.0 12/31/19 16:00 78 21 152/53 (86) 100 12/31/19 15:16 73 12/31/19 15:00 79 20 147/54 (85) 99 12/31/19 14:00 70 17 137/39 (71) 99 12/31/19 13:00 71 20 135/41 (72) 99 12/31/19 12:00 Nasal Cannula 1.0 12/31/19 12:00 1.0 12/31/19 12:00 98.6 70 20 127/44 (71) 100 12/31/19 11:53 67 12/31/19 11:00 79 22 149/49 (82) 100 12/31/19 10:00 71 21 127/42 (70) 93 12/31/19 09:00 98.6 73 20 131/46 (74) 89 12/31/19 08:14 65 12/31/19 08:00 1.0 12/31/19 08:00 Nasal Cannula 1.0 12/31/19 08:00 68 19 135/36 (69) 97 12/31/19 07:11 96 Nasal Cannula 1.0 24 12/31/19 07:00 74 18 138/54 (82) 98 Intake and Output 12/31/19 01/01/20 19:00 07:00 Intake Total 310 ml 100 ml Output Total 690 ml 1375 ml Balance -380 ml -1275 ml Free Water 200 ml Tube Feeding 110 ml 100 ml Output Urine Total 690 ml 1375 ml Stool Total 0 ml 0 ml Height (Feet): 5 Height (Inches): 7.00 Weight (Pounds): 223 General Appearance: lethargic Respiratory/Chest: decreased breath sounds Abdomen: normal bowel sounds Pelvis: normal external exam Objective Current Medications Medications (Trade) Dose Ordered Sig/Angie Route PRN Reason Start Time Stop Time Status Last Admin Dose Admin Acetaminophen (Tylenol) 650 mg Q6H PRN ORAL Mild Pain (Pain Scale 1-3) 01/01/20 00:30 01/11/20 12:29 Acetaminophen (Tylenol) 1,000 mg Q6H PRN ORAL MODERATE PAIN 01/01/20 00:30 01/11/20 12:29 Amantadine HCl (Symmetrel) 100 mg TWICE A DAY ORAL 01/01/20 09:00 01/11/20 08:59 Aspirin (ASA) 324 mg DAILY ORAL 01/01/20 09:00 02/04/20 08:59 Atorvastatin Calcium (Lipitor) 10 mg BEDTIME ORAL 01/01/20 21:00 03/11/20 20:59 Calcium Carbonate (Os-Octavio) 500 mg THREE TIMES A DAY ORAL 01/01/20 09:00 03/20/20 17:59 Clonidine HCl (Catapres Tab) 0.1 mg Q6H PRN GT For high BP over 160 systolic 12/31/19 22:30 03/11/20 12:30 Dextrose (Dextrose 50%) 25 ml Q30M PRN IV Hypoglycemia 12/31/19 22:45 03/12/20 07:14 Dextrose (Dextrose 50%) 50 ml Q30M PRN IV Hypoglycemia 12/31/19 22:45 03/12/20 07:14 Divalproex Sodium (Depakote) 250 mg EVERY 12 HOURS ORAL 01/01/20 09:00 01/12/20 20:59 Docusate Sodium (Colace) 100 mg TWICE A DAY ORAL 01/01/20 09:00 01/14/20 17:59 Insulin Aspart (NovoLOG) EVERY 6 HOURS SUBQ 01/01/20 00:00 03/12/20 11:59 01/01/20 05:37 Lactulose (Cephulac) 20 gm BID ORAL 01/01/20 09:00 01/24/20 08:59 Levothyroxine Sodium (Synthroid) 100 mcg DAILY IV 01/01/20 09:00 01/11/20 09:29 Methylprednisolone Sodium Succinate (Solu-MEDROL) 20 mg EVERY 6 HOURS IVP 01/01/20 00:00 03/18/20 11:59 01/01/20 05:31 Nitroglycerin (Ntg) 0.4 mg Q5MIN X 3 DOSES PRN SL CHEST PAIN 12/31/19 22:30 01/10/20 21:44 Pantoprazole (Protonix) 40 mg EVERY 12 HOURS IVP 01/01/20 09:00 01/13/20 08:59 Polyethylene Glycol (Miralax) 17 gm BEDTIME ORAL 01/01/20 21:00 01/18/20 20:59 Polyethylene Glycol (Miralax) 17 gm DAILYPRN PRN ORAL Constipation 01/01/20 19:00 01/23/20 18:59 Quetiapine Fumarate (SEROqueL) 50 mg Q12HR ORAL 01/01/20 09:00 02/05/20 20:59 Jabari Adams MD Jan 01, 2020 06:47
--- NOTE | 2020-01-01 07:30 | NUR ---
HAND-OFF: Report given to DARREL Irvin.
--- NOTE | 2020-01-01 07:49 | NUR ---
NURSE NOTES: Received report from Yany ROJO. Pt. in bed, sleeping but arousable. No sign of distress. On O2 at 2LPM via NC. No grimacing noted. F/C in placed patent/intact draining yellow colored urine. NGT on left nare in placed patent/intact running Vital AF 1.2 at 25cc/hr goal is 55cc/hr. HOB elevated at all times. Bilateral soft wrist restrain in placed. (+) CMS. Bed in low position, locked. Call light within reach. Will cont. to monitor.
[2020-01-01 08:00] VITALS: BP 134/47
[2020-01-01] MEDS ORDERED: Docusate 100mg cap ORAL SCH (09:00)
[2020-01-01] MEDS ORDERED: Aspirin Baby 81mg ORAL SCH (09:00)
[2020-01-01] MEDS ORDERED: Lactulose 20gm/30ml UDC ORAL SCH (09:00)
[2020-01-01] MEDS: Docusate 100mg/10ml Liq NG SCH ×2 (09:23→18:24)
[2020-01-01] MEDS: Pantoprazole Inj IVP SCH ×2 (09:24→21:31)
[2020-01-01] MEDS: Os-Cal (Oyster Shell) 500mg tab ORAL SCH ×2 (09:24→12:31)
[2020-01-01] MEDS: Amantadine 100mg cap ORAL SCH ×2 (09:24→18:25)
--- NOTE | 2020-01-01 10:05 | Pulmonology Progress Note ---
Subjective ROS Limited/Unobtainable: Yes Interval Events: Extubated 12/21/19; did well on VENTIMASK; now on nasal o2 HEENT: Repors: no symptoms Respiratory: Reports: no symptoms Cardiovascular: Reports: no symptoms Gastrointestinal/Abdominal: Reports: no symptoms Genitourinary: Reports: no symptoms Allergies: Coded Allergies: LITHIUM (Verified Allergy, Unknown, 02/07/19) All Systems: reviewed and negative except above Objective Last 24 Hour Vital Signs Date Time Temp Pulse Resp B/P (MAP) Pulse Ox O2 Delivery O2 Flow Rate FiO2 01/01/20 09:17 74 01/01/20 08:00 97.2 72 21 134/47 (76) 100 01/01/20 08:00 Nasal Cannula 2.0 01/01/20 08:00 2.0 01/01/20 07:12 100 Nasal Cannula 2.0 28 01/01/20 04:00 69 01/01/20 04:00 2.0 01/01/20 04:00 Nasal Cannula 2.0 01/01/20 00:00 2.0 01/01/20 00:00 97.7 73 20 126/60 (82) 100 01/01/20 00:00 Nasal Cannula 2.0 12/31/19 23:35 73 12/31/19 22:10 98.1 72 20 120/44 (69) 95 12/31/19 21:00 74 20 140/46 (77) 100 12/31/19 20:00 98.0 78 20 140/59 (86) 98 12/31/19 20:00 Nasal Cannula 1.0 12/31/19 20:00 76 12/31/19 20:00 1.0 12/31/19 19:05 99 Nasal Cannula 1.0 24 12/31/19 19:00 72 21 124/42 (69) 100 12/31/19 18:00 98.7 79 24 121/91 (101) 99 12/31/19 17:00 81 21 154/47 (82) 100 12/31/19 16:00 Nasal Cannula 1.0 12/31/19 16:00 1.0 12/31/19 16:00 78 21 152/53 (86) 100 12/31/19 15:16 73 12/31/19 15:00 79 20 147/54 (85) 99 12/31/19 14:00 70 17 137/39 (71) 99 12/31/19 13:00 71 20 135/41 (72) 99 12/31/19 12:00 Nasal Cannula 1.0 12/31/19 12:00 1.0 12/31/19 12:00 98.6 70 20 127/44 (71) 100 12/31/19 11:53 67 12/31/19 11:00 79 22 149/49 (82) 100 Intake and Output 12/31/19 01/01/20 19:00 07:00 Intake Total 310 ml 150 ml Output Total 690 ml 1375 ml Balance -380 ml -1225 ml Free Water 200 ml Tube Feeding 110 ml 150 ml Output Urine Total 690 ml 1375 ml Stool Total 0 ml 0 ml General Appearance: no acute distress Respiratory: chest wall non-tender, lungs clear Cardiovascular: normal peripheral pulses, normal rate Abdomen: normal bowel sounds Current Medications Medications (Trade) Dose Ordered Sig/Angie Route PRN Reason Start Time Stop Time Status Last Admin Dose Admin Acetaminophen (Tylenol) 650 mg Q6H PRN ORAL Mild Pain (Pain Scale 1-3) 01/01/20 00:30 01/11/20 12:29 Acetaminophen (Tylenol) 1,000 mg Q6H PRN ORAL MODERATE PAIN 01/01/20 00:30 01/11/20 12:29 Amantadine HCl (Symmetrel) 100 mg TWICE A DAY ORAL 01/01/20 09:00 01/11/20 08:59 01/01/20 09:24 Aspirin (ASA) 324 mg DAILY ORAL 01/01/20 09:00 02/04/20 08:59 01/01/20 09:25 Atorvastatin Calcium (Lipitor) 10 mg BEDTIME ORAL 01/01/20 21:00 03/11/20 20:59 Calcium Carbonate (Os-Octavio) 500 mg THREE TIMES A DAY ORAL 01/01/20 09:00 03/20/20 17:59 01/01/20 09:24 Clonidine HCl (Catapres Tab) 0.1 mg Q6H PRN GT For high BP over 160 systolic 12/31/19 22:30 03/11/20 12:30 Dextrose (Dextrose 50%) 25 ml Q30M PRN IV Hypoglycemia 12/31/19 22:45 03/12/20 07:14 Dextrose (Dextrose 50%) 50 ml Q30M PRN IV Hypoglycemia 12/31/19 22:45 03/12/20 07:14 Divalproex Sodium (Depakote) 250 mg EVERY 12 HOURS ORAL 01/01/20 09:00 01/12/20 20:59 01/01/20 09:24 Docusate Sodium (Colace) 100 mg TWICE A DAY NG 01/01/20 09:00 01/31/20 08:59 01/01/20 09:23 Insulin Aspart (NovoLOG) EVERY 6 HOURS SUBQ 01/01/20 00:00 03/12/20 11:59 01/01/20 05:37 Lactulose (Cephulac) 20 gm BID ORAL 01/01/20 09:00 01/24/20 08:59 01/01/20 09:23 Levothyroxine Sodium (Synthroid) 100 mcg DAILY IV 01/01/20 09:00 01/11/20 09:29 01/01/20 09:58 Methylprednisolone Sodium Succinate (Solu-MEDROL) 20 mg EVERY 6 HOURS IVP 01/01/20 00:00 03/18/20 11:59 01/01/20 05:31 Nitroglycerin (Ntg) 0.4 mg Q5MIN X 3 DOSES PRN SL CHEST PAIN 12/31/19 22:30 01/10/20 21:44 Pantoprazole (Protonix) 40 mg EVERY 12 HOURS IVP 01/01/20 09:00 01/13/20 08:59 01/01/20 09:24 Polyethylene Glycol (Miralax) 17 gm BEDTIME ORAL 01/01/20 21:00 01/18/20 20:59 Polyethylene Glycol (Miralax) 17 gm DAILYPRN PRN ORAL Constipation 01/01/20 19:00 01/23/20 18:59 Quetiapine Fumarate (SEROqueL) 50 mg Q12HR ORAL 01/01/20 09:00 02/05/20 20:59 01/01/20 09:24 Assessment/Plan Assessment/Plan IMPRESSION: 1. Respiratory failure. Improved; remains intermittently on BiPPA vs Ventimask; now on nasal o2 2. Has healthcare-associated pneumonia; is negative for COVID-19. 3. Psych disorder. 4. Obesity. 5. Hypertension. 6. Hypernatremia DISCUSSION: Continue broad spectrum antibiotics. Has negative COVID-19 swab. On Seroquel; on decreased dose Off steroids Off Lasix and Diamox Has diuresed well Emerita Fan Omar Syed MD Jan 01, 2020 10:05
--- NOTE | 2020-01-01 10:10 | General Progress Note ---
Assessment/Plan Status: progressing, unchanged Assessment/Plan: Assessment - Resp failure - r/o COVID -- x 2 negative - COPD - HTN - Anemia - Abnormal LFT Recommendations - extubated now - Elevate HOB - abx - follow labs - f/u hepatitis serologies>>> neg -repeat labs -NGTf titrate up as tolerated to the goal rate -swallow eval when more stable -bowel regimen Subjective ROS Limited/Unobtainable: No Allergies: Coded Allergies: LITHIUM (Verified Allergy, Unknown, 02/07/19) Objective Last 24 Hour Vital Signs Date Time Temp Pulse Resp B/P (MAP) Pulse Ox O2 Delivery O2 Flow Rate FiO2 01/01/20 09:17 74 01/01/20 08:00 97.2 72 21 134/47 (76) 100 01/01/20 08:00 Nasal Cannula 2.0 01/01/20 08:00 2.0 01/01/20 07:12 100 Nasal Cannula 2.0 28 01/01/20 04:00 69 01/01/20 04:00 2.0 01/01/20 04:00 Nasal Cannula 2.0 01/01/20 00:00 2.0 01/01/20 00:00 97.7 73 20 126/60 (82) 100 01/01/20 00:00 Nasal Cannula 2.0 12/31/19 23:35 73 12/31/19 22:10 98.1 72 20 120/44 (69) 95 12/31/19 21:00 74 20 140/46 (77) 100 12/31/19 20:00 98.0 78 20 140/59 (86) 98 12/31/19 20:00 Nasal Cannula 1.0 12/31/19 20:00 76 12/31/19 20:00 1.0 12/31/19 19:05 99 Nasal Cannula 1.0 24 12/31/19 19:00 72 21 124/42 (69) 100 12/31/19 18:00 98.7 79 24 121/91 (101) 99 12/31/19 17:00 81 21 154/47 (82) 100 12/31/19 16:00 Nasal Cannula 1.0 12/31/19 16:00 1.0 12/31/19 16:00 78 21 152/53 (86) 100 12/31/19 15:16 73 12/31/19 15:00 79 20 147/54 (85) 99 12/31/19 14:00 70 17 137/39 (71) 99 12/31/19 13:00 71 20 135/41 (72) 99 12/31/19 12:00 Nasal Cannula 1.0 12/31/19 12:00 1.0 12/31/19 12:00 98.6 70 20 127/44 (71) 100 12/31/19 11:53 67 12/31/19 11:00 79 22 149/49 (82) 100 Intake and Output 12/31/19 01/01/20 19:00 07:00 Intake Total 310 ml 150 ml Output Total 690 ml 1375 ml Balance -380 ml -1225 ml Free Water 200 ml Tube Feeding 110 ml 150 ml Output Urine Total 690 ml 1375 ml Stool Total 0 ml 0 ml Height (Feet): 5 Height (Inches): 7.00 Weight (Pounds): 223 General Appearance: no apparent distress EENT: normal ENT inspection Neck: supple Cardiovascular: normal rate Respiratory/Chest: decreased breath sounds Abdomen: hypoactive bowel sounds Extremities: non-tender Kirk Vidal MD Jan 01, 2020 10:10
--- NOTE | 2020-01-01 11:07 | Infectious Diseases Prog Note ---
Assessment/Plan Assessment/Plan antibiotics : none A 1. leucocytosis likely secondary to steroids 2. COPD 3. dementia 4. hypertension 5. Parkinsons disease P 1. continue off antibiotics Subjective ROS Limited/Unobtainable: Yes Allergies: Coded Allergies: LITHIUM (Verified Allergy, Unknown, 02/07/19) Objective Last 24 Hour Vital Signs Date Time Temp Pulse Resp B/P (MAP) Pulse Ox O2 Delivery O2 Flow Rate FiO2 01/01/20 09:17 74 01/01/20 08:00 97.2 72 21 134/47 (76) 100 01/01/20 08:00 Nasal Cannula 2.0 01/01/20 08:00 2.0 01/01/20 07:12 100 Nasal Cannula 2.0 28 01/01/20 04:00 69 01/01/20 04:00 2.0 01/01/20 04:00 Nasal Cannula 2.0 01/01/20 00:00 2.0 01/01/20 00:00 97.7 73 20 126/60 (82) 100 01/01/20 00:00 Nasal Cannula 2.0 12/31/19 23:35 73 12/31/19 22:10 98.1 72 20 120/44 (69) 95 12/31/19 21:00 74 20 140/46 (77) 100 12/31/19 20:00 98.0 78 20 140/59 (86) 98 12/31/19 20:00 Nasal Cannula 1.0 12/31/19 20:00 76 12/31/19 20:00 1.0 12/31/19 19:05 99 Nasal Cannula 1.0 24 12/31/19 19:00 72 21 124/42 (69) 100 12/31/19 18:00 98.7 79 24 121/91 (101) 99 12/31/19 17:00 81 21 154/47 (82) 100 12/31/19 16:00 Nasal Cannula 1.0 12/31/19 16:00 1.0 12/31/19 16:00 78 21 152/53 (86) 100 12/31/19 15:16 73 12/31/19 15:00 79 20 147/54 (85) 99 12/31/19 14:00 70 17 137/39 (71) 99 12/31/19 13:00 71 20 135/41 (72) 99 12/31/19 12:00 Nasal Cannula 1.0 12/31/19 12:00 1.0 12/31/19 12:00 98.6 70 20 127/44 (71) 100 12/31/19 11:53 67 Height (Feet): 5 Height (Inches): 7.00 Weight (Pounds): 223 Respiratory/Chest: lungs clear Cardiovascular: normal rate, regular rhythm, no gallop/murmur Abdomen: soft, non tender Extremities: no edema Current Medications Medications (Trade) Dose Ordered Sig/Angie Route PRN Reason Start Time Stop Time Status Last Admin Dose Admin Acetaminophen (Tylenol) 650 mg Q6H PRN ORAL Mild Pain (Pain Scale 1-3) 01/01/20 00:30 01/11/20 12:29 Acetaminophen (Tylenol) 1,000 mg Q6H PRN ORAL MODERATE PAIN 01/01/20 00:30 01/11/20 12:29 Amantadine HCl (Symmetrel) 100 mg TWICE A DAY ORAL 01/01/20 09:00 01/11/20 08:59 01/01/20 09:24 Aspirin (ASA) 324 mg DAILY ORAL 01/01/20 09:00 02/04/20 08:59 01/01/20 09:25 Atorvastatin Calcium (Lipitor) 10 mg BEDTIME ORAL 01/01/20 21:00 03/11/20 20:59 Calcium Carbonate (Os-Octavio) 500 mg THREE TIMES A DAY ORAL 01/01/20 09:00 03/20/20 17:59 01/01/20 09:24 Clonidine HCl (Catapres Tab) 0.1 mg Q6H PRN GT For high BP over 160 systolic 12/31/19 22:30 03/11/20 12:30 Dextrose (Dextrose 50%) 25 ml Q30M PRN IV Hypoglycemia 12/31/19 22:45 03/12/20 07:14 Dextrose (Dextrose 50%) 50 ml Q30M PRN IV Hypoglycemia 12/31/19 22:45 03/12/20 07:14 Divalproex Sodium (Depakote) 250 mg EVERY 12 HOURS ORAL 01/01/20 09:00 01/12/20 20:59 01/01/20 09:24 Docusate Sodium (Colace) 100 mg TWICE A DAY NG 01/01/20 09:00 01/31/20 08:59 01/01/20 09:23 Insulin Aspart (NovoLOG) EVERY 6 HOURS SUBQ 01/01/20 00:00 03/12/20 11:59 01/01/20 05:37 Lactulose (Cephulac) 20 gm BID ORAL 01/01/20 09:00 01/24/20 08:59 01/01/20 09:23 Levothyroxine Sodium (Synthroid) 100 mcg DAILY IV 01/01/20 09:00 01/11/20 09:29 01/01/20 09:58 Methylprednisolone Sodium Succinate (Solu-MEDROL) 20 mg EVERY 6 HOURS IVP 01/01/20 00:00 03/18/20 11:59 01/01/20 05:31 Nitroglycerin (Ntg) 0.4 mg Q5MIN X 3 DOSES PRN SL CHEST PAIN 12/31/19 22:30 01/10/20 21:44 Pantoprazole (Protonix) 40 mg EVERY 12 HOURS IVP 01/01/20 09:00 01/13/20 08:59 01/01/20 09:24 Polyethylene Glycol (Miralax) 17 gm BEDTIME ORAL 01/01/20 21:00 01/18/20 20:59 Polyethylene Glycol (Miralax) 17 gm DAILYPRN PRN ORAL Constipation 01/01/20 19:00 01/23/20 18:59 Quetiapine Fumarate (SEROqueL) 50 mg Q12HR ORAL 01/01/20 09:00 02/05/20 20:59 01/01/20 09:24 Pablito Peralta MD Jan 01, 2020 11:07
--- NOTE | 2020-01-01 11:23 | Hematology/Onc Progress Note ---
Assessment/Plan Assessment/Plan Assessment and Recs # Lower extremity edema in setting of elevated ddimer --> lower ext duplex ordered to r/o dvt-->neg for dvt --> lovenox sq has been started --> low threshold for v/q or cta r/o pe # Anemia of chronic disease --> hgb 11-->10.-->9->11.9-->10.8->7.8->11->10.8->10.2-->9.6->9.5->10.8-->12 --> no e/o hemolysis --> no bleeding reported --> smear reviewed --> no go bleeding # Leukocytosis r/o infection, likely steriods related --> wbc trend 10==>12-->14->15 --> steriods off --> abx off # Respiratory failure with copd exacerbation likely --> pulm toilet --> breathing rx --> steroids prn basis --> pulm eval ---> ABX per is on zosyn->now off # 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 ( combination of moderate aortic regurgitation and severe mitral regurgitation) --> diuresis as per cards --> lasix last time # Severe ascending aortic dilatation --> per Dr Keke campbell # Hypertension # Parkinson disease # Hyperlipidemia # Hypothyroidism # Dementia # Obesity # Schizophrenia --> as per [facility] --> restraints # Dvt ppx lovenox sq/scd's Appreciate sales consultant residential manager care and alexei Rn Subjective Constitutional: Denies: no symptoms, chills, fever, malaise, weakness, other HEENT: Denies: no symptoms, eye pain, blurred vision, tearing, double vision, ear pain, ear discharge, nose pain, nose congestion, throat pain, throat swelling, mouth pain, mouth swelling, other Gastrointestinal/Abdominal: Denies: no symptoms, abdomen distended, abdominal pain, black stools, tarry stools, blood in stool, constipated, diarrhea, difficulty swallowing, nausea, poor appetite, poor fluid intake, rectal bleeding , vomiting, other Endocrine: Denies: no symptoms, excessive sweating, flushing, intolerance to cold, intolerance to heat, increased hunger, increased thirst, increased urine, unexplained weight gain, unexplained weight loss, other Hematologic/Lymphatic: Denies: no symptoms, anemia, easy bleeding, easy bruising, adenopathy, other Allergies: Coded Allergies: LITHIUM (Verified Allergy, Unknown, 02/07/19) Subjective 12/12 labs are reviewed, intubated, with og, somewhat responsive, dw rn 12/13 labs noted, hgb 7.8, tfs ok to start per gi 12/15 icu, restraints, no acute events, hep panel negative, sedated 12/16 no bleeding, in the icu, on abx, in restarints, sleepy, vent 12/17 is on vent, also is on abx, awake, with ogt 12/18 ng placed, hgb 9.6, no bleeding, no night sweats 12/19 labs reviewed, sedated, on vent, nob leeding, meds reviewed 12/20 remains on vent, audra bleeding, meds reviewed, no night sweats 12/22 hgb 9.5, to get zosyn x 1 more day, no night sweats meds reviewed 12/23 labs noted, no bleeding, with fm, no bleeding or night sweats 12/24 no bleeding, labs noted, no night sweats hgb 10, no hemolysis 12/25 remains fatigued, fm, labs are still pending from am 12/26 restraints, v mask, cxr reviewed 12/27 labs reviewed, no bleeding, hgb 10.8, no hemolysis on FM 12/29 remains disoriented on bipap and fm as needed, hgb better 12/30 wbc 15k, no bleeding, alexei rn, no night sweats off abx 12/31 wbc remains elevated, arousable, no bleeding, on fm Objective Objective Current Medications Medications (Trade) Dose Ordered Sig/Angie Route PRN Reason Start Time Stop Time Status Last Admin Dose Admin Acetaminophen (Tylenol) 650 mg Q6H PRN ORAL Mild Pain (Pain Scale 1-3) 01/01/20 00:30 01/11/20 12:29 Acetaminophen (Tylenol) 1,000 mg Q6H PRN ORAL MODERATE PAIN 01/01/20 00:30 01/11/20 12:29 Amantadine HCl (Symmetrel) 100 mg TWICE A DAY ORAL 01/01/20 09:00 01/11/20 08:59 01/01/20 09:24 Aspirin (ASA) 324 mg DAILY ORAL 01/01/20 09:00 02/04/20 08:59 01/01/20 09:25 Atorvastatin Calcium (Lipitor) 10 mg BEDTIME ORAL 01/01/20 21:00 03/11/20 20:59 Calcium Carbonate (Os-Octavio) 500 mg THREE TIMES A DAY ORAL 01/01/20 09:00 03/20/20 17:59 01/01/20 09:24 Clonidine HCl (Catapres Tab) 0.1 mg Q6H PRN GT For high BP over 160 systolic 12/31/19 22:30 03/11/20 12:30 Dextrose (Dextrose 50%) 25 ml Q30M PRN IV Hypoglycemia 12/31/19 22:45 03/12/20 07:14 Dextrose (Dextrose 50%) 50 ml Q30M PRN IV Hypoglycemia 12/31/19 22:45 03/12/20 07:14 Divalproex Sodium (Depakote) 250 mg EVERY 12 HOURS ORAL 01/01/20 09:00 01/12/20 20:59 01/01/20 09:24 Docusate Sodium (Colace) 100 mg TWICE A DAY NG 01/01/20 09:00 01/31/20 08:59 01/01/20 09:23 Insulin Aspart (NovoLOG) EVERY 6 HOURS SUBQ 01/01/20 00:00 03/12/20 11:59 01/01/20 05:37 Lactulose (Cephulac) 20 gm BID ORAL 01/01/20 09:00 01/24/20 08:59 01/01/20 09:23 Levothyroxine Sodium (Synthroid) 100 mcg DAILY IV 01/01/20 09:00 01/11/20 09:29 01/01/20 09:58 Methylprednisolone Sodium Succinate (Solu-MEDROL) 20 mg EVERY 6 HOURS IVP 01/01/20 00:00 03/18/20 11:59 01/01/20 05:31 Nitroglycerin (Ntg) 0.4 mg Q5MIN X 3 DOSES PRN SL CHEST PAIN 12/31/19 22:30 01/10/20 21:44 Pantoprazole (Protonix) 40 mg EVERY 12 HOURS IVP 01/01/20 09:00 01/13/20 08:59 01/01/20 09:24 Polyethylene Glycol (Miralax) 17 gm BEDTIME ORAL 01/01/20 21:00 8 20:59 Polyethylene Glycol (Miralax) 17 gm DAILYPRN PRN ORAL Constipation 01/01/20 19:00 01/23/20 18:59 Quetiapine Fumarate (SEROqueL) 50 mg Q12HR ORAL 01/01/20 09:00 02/05/20 20:59 01/01/20 09:24 Last 24 Hour Vital Signs Date Time Temp Pulse Resp B/P (MAP) Pulse Ox O2 Delivery O2 Flow Rate FiO2 01/01/20 09:17 74 01/01/20 08:00 97.2 72 21 134/47 (76) 100 01/01/20 08:00 Nasal Cannula 2.0 01/01/20 08:00 2.0 01/01/20 07:12 100 Nasal Cannula 2.0 28 01/01/20 04:00 69 01/01/20 04:00 2.0 01/01/20 04:00 Nasal Cannula 2.0 01/01/20 00:00 2.0 01/01/20 00:00 97.7 73 20 126/60 (82) 100 01/01/20 00:00 Nasal Cannula 2.0 12/31/19 23:35 73 12/31/19 22:10 98.1 72 20 120/44 (69) 95 12/31/19 21:00 74 20 140/46 (77) 100 12/31/19 20:00 98.0 78 20 140/59 (86) 98 12/31/19 20:00 Nasal Cannula 1.0 12/31/19 20:00 76 12/31/19 20:00 1.0 12/31/19 19:05 99 Nasal Cannula 1.0 24 12/31/19 19:00 72 21 124/42 (69) 100 12/31/19 18:00 98.7 79 24 121/91 (101) 99 12/31/19 17:00 81 21 154/47 (82) 100 12/31/19 16:00 Nasal Cannula 1.0 12/31/19 16:00 1.0 12/31/19 16:00 78 21 152/53 (86) 100 12/31/19 15:16 73 12/31/19 15:00 79 20 147/54 (85) 99 12/31/19 14:00 70 17 137/39 (71) 99 12/31/19 13:00 71 20 135/41 (72) 99 12/31/19 12:00 Nasal Cannula 1.0 12/31/19 12:00 1.0 12/31/19 12:00 98.6 70 20 127/44 (71) 100 12/31/19 11:53 67 12/31/19 11:00 79 22 149/49 (82) 100 12/31/19 10:00 71 21 127/42 (70) 93 12/31/19 09:00 98.6 73 20 131/46 (74) 89 12/31/19 08:14 65 12/31/19 08:00 1.0 12/31/19 08:00 Nasal Cannula 1.0 12/31/19 08:00 68 19 135/36 (69) 97 12/31/19 07:11 96 Nasal Cannula 1.0 24 12/31/19 07:00 74 18 138/54 (82) 98 12/31/19 06:00 72 20 142/44 (76) 96 12/31/19 05:00 98.0 72 19 129/62 (84) 97 12/31/19 04:00 78 23 125/58 (80) 94 12/31/19 04:00 Nasal Cannula 1.0 12/31/19 04:00 75 12/31/19 04:00 1.0 12/31/19 03:00 61 20 120/38 (65) 96 12/31/19 02:00 74 19 124/42 (69) 98 12/31/19 01:00 97.8 68 18 125/40 (68) 96 12/31/19 00:00 64 17 120/37 (64) 93 12/31/19 00:00 65 12/31/19 00:00 Nasal Cannula 1.0 12/31/19 00:00 1.0 12/30/19 23:00 68 20 124/41 (68) 99 12/30/19 22:00 69 19 119/40 (66) 100 12/30/19 21:00 74 19 119/42 (67) 100 12/30/19 20:00 Nasal Cannula 1.0 12/30/19 20:00 98.4 73 22 117/30 (59) 100 12/30/19 20:00 1.0 12/30/19 19:36 100 Nasal Cannula 1.0 24 12/30/19 19:31 73 12/30/19 19:00 95 Nasal Cannula 1.0 24 12/30/19 19:00 74 19 139/43 (75) 100 12/30/19 18:00 77 18 99/79 (86) 99 12/30/19 17:00 76 18 124/44 (70) 12/30/19 16:00 10.0 40 12/30/19 16:00 97.6 75 19 121/44 (69) 99 12/30/19 16:00 Bi-pap 12/30/19 15:56 66 12/30/19 15:00 73 21 120/45 (70) 100 12/30/19 14:00 71 19 121/44 (69) 100 12/30/19 13:00 69 19 118/43 (68) 99 12/30/19 12:24 66 12/30/19 12:00 Bi-pap 12/30/19 12:00 98.5 70 16 107/42 (63) 99 12/30/19 12:00 10.0 40 Intake and Output 12/31/19 01/01/20 19:00 07:00 Intake Total 310 ml 150 ml Output Total 690 ml 1375 ml Balance -380 ml -1225 ml Free Water 200 ml Tube Feeding 110 ml 150 ml Output Urine Total 690 ml 1375 ml Stool Total 0 ml 0 ml Labs Test 12/30/19 04:38 12/30/19 18:27 12/30/19 20:03 12/30/19 23:28 White Blood Count 14.9 K/UL (4.8-10.8) Red Blood Count 3.94 M/UL (4.20-5.40) Hemoglobin 12.7 G/DL (12.0-16.0) Hematocrit 39.3 % (37.0-47.0) Mean Corpuscular Volume 100 FL (80-99) Mean Corpuscular Hemoglobin 32.3 PG (27.0-31.0) Mean Corpuscular Hemoglobin Concent 32.4 G/DL (32.0-36.0) Red Cell Distribution Width 13.1 % (11.6-14.8) Platelet Count 209 K/UL (150-450) Mean Platelet Volume 8.9 FL (6.5-10.1) Neutrophils (%) (Auto) 84.2 % (45.0-75.0) Lymphocytes (%) (Auto) 10.2 % (20.0-45.0) Monocytes (%) (Auto) 5.2 % (1.0-10.0) Eosinophils (%) (Auto) 0.0 % (0.0-3.0) Basophils (%) (Auto) 0.4 % (0.0-2.0) Sodium Level 140 MMOL/L (136-145) Potassium Level 3.8 MMOL/L (3.5-5.1) Chloride Level 100 MMOL/L (98-107) Carbon Dioxide Level 35 MMOL/L (21-32) Anion Gap 5 mmol/L (5-15) Blood Urea Nitrogen 41 mg/dL (7-18) Creatinine 0.8 MG/DL (0.55-1.30) Estimat Glomerular Filtration Rate > 60 mL/min (>60) Glucose Level 118 MG/DL (74-106) Calcium Level 9.1 MG/DL (8.5-10.1) Total Bilirubin 0.6 MG/DL (0.2-1.0) Aspartate Amino Transf (AST/SGOT) 15 U/L (15-37) Alanine Aminotransferase (ALT/SGPT) 32 U/L (12-78) Alkaline Phosphatase 42 U/L (46-116) Ammonia 17 umol/L (11-32) Total Protein 6.9 G/DL (6.4-8.2) Albumin 3.2 G/DL (3.4-5.0) Globulin 3.7 g/dL Albumin/Globulin Ratio 0.9 (1.0-2.7) POC Whole Blood Glucose 147 MG/DL (74-106) 151 MG/DL (74-106) Arterial Blood pH 7.382 (7.350-7.450) Arterial Blood Partial Pressure CO2 62.0 mmHg (35.0-45.0) Arterial Blood Partial Pressure O2 72.6 mmHg (75.0-100.0) Arterial Blood HCO3 36.0 mmol/L (22.0-26.0) Arterial Blood Oxygen Saturation 93.8 % (95-100) Arterial Blood Base Excess 9.2 (-2-2) Raphael Test Positive Test 12/31/19 00:42 12/31/19 05:00 POC Whole Blood Glucose 156 MG/DL (74-106) Sodium Level 142 MMOL/L (136-145) Potassium Level 3.9 MMOL/L (3.5-5.1) Chloride Level 103 MMOL/L (98-107) Carbon Dioxide Level 35 MMOL/L (21-32) Anion Gap 4 mmol/L (5-15) Blood Urea Nitrogen 39 mg/dL (7-18) Creatinine 0.9 MG/DL (0.55-1.30) Estimat Glomerular Filtration Rate > 60 mL/min (>60) Glucose Level 156 MG/DL (74-106) Calcium Level 9.1 MG/DL (8.5-10.1) Phosphorus Level 3.4 MG/DL (2.5-4.9) Magnesium Level 2.2 MG/DL (1.8-2.4) Total Bilirubin 0.6 MG/DL (0.2-1.0) Aspartate Amino Transf (AST/SGOT) 12 U/L (15-37) Alanine Aminotransferase (ALT/SGPT) 27 U/L (12-78) Alkaline Phosphatase 42 U/L (46-116) Total Protein 6.9 G/DL (6.4-8.2) Albumin 3.1 G/DL (3.4-5.0) Globulin 3.8 g/dL Albumin/Globulin Ratio 0.8 (1.0-2.7) Thyroid Stimulating Hormone (TSH) 4.938 uiU/mL (0.358-3.740) Height (Feet): 5 Height (Inches): 7.00 Weight (Pounds): 223 Objective Vitals: reviewed General: NAD HEENT: nc, at ++ngt, facemask+ Neck: supple Chest: decreased breath sounds bilaterally Cardiovascular: RRR, no s3, s4 Abdomen: soft, nontender, nd Extremities: 1-2 + edema, scd's Neuro: nonverbal : iman+ Frank Escobar MD Jan 01, 2020 11:23
--- NOTE | 2020-01-01 11:53 | Cardiac Electrophysiology PN ---
Assessment/Plan Assessment/Plan 1. Recurrent respiratory failure with BNP of more than 19,000. Echo normal EF. On 2 liter NC. Off Lasix 2. Bradycardia requiring atropine due to respiratory failure . No further 3. Bilateral UE edema. Venous Duplex was negative on 12/12/19. 4. History of Parkinson disease. 5. Hyperlipidemia. YOSELYN RN Subjective Subjective Only on 2 liter Nasal Cannula transferred to SDU. Objective Last 24 Hour Vital Signs Date Time Temp Pulse Resp B/P (MAP) Pulse Ox O2 Delivery O2 Flow Rate FiO2 01/01/20 09:17 74 01/01/20 08:00 97.2 72 21 134/47 (76) 100 01/01/20 08:00 Nasal Cannula 2.0 01/01/20 08:00 2.0 01/01/20 07:12 100 Nasal Cannula 2.0 28 01/01/20 04:00 69 01/01/20 04:00 2.0 01/01/20 04:00 Nasal Cannula 2.0 01/01/20 00:00 2.0 01/01/20 00:00 97.7 73 20 126/60 (82) 100 01/01/20 00:00 Nasal Cannula 2.0 12/31/19 23:35 73 12/31/19 22:10 98.1 72 20 120/44 (69) 95 12/31/19 21:00 74 20 140/46 (77) 100 12/31/19 20:00 98.0 78 20 140/59 (86) 98 12/31/19 20:00 Nasal Cannula 1.0 12/31/19 20:00 76 12/31/19 20:00 1.0 12/31/19 19:05 99 Nasal Cannula 1.0 24 12/31/19 19:00 72 21 124/42 (69) 100 12/31/19 18:00 98.7 79 24 121/91 (101) 99 12/31/19 17:00 81 21 154/47 (82) 100 12/31/19 16:00 Nasal Cannula 1.0 12/31/19 16:00 1.0 12/31/19 16:00 78 21 152/53 (86) 100 12/31/19 15:16 73 12/31/19 15:00 79 20 147/54 (85) 99 12/31/19 14:00 70 17 137/39 (71) 99 12/31/19 13:00 71 20 135/41 (72) 99 12/31/19 12:00 Nasal Cannula 1.0 12/31/19 12:00 1.0 12/31/19 12:00 98.6 70 20 127/44 (71) 100 12/31/19 11:53 67 Intake and Output 12/31/19 01/01/20 19:00 07:00 Intake Total 310 ml 150 ml Output Total 690 ml 1375 ml Balance -380 ml -1225 ml Free Water 200 ml Tube Feeding 110 ml 150 ml Output Urine Total 690 ml 1375 ml Stool Total 0 ml 0 ml Objective HEAD AND NECK: No JVD. LUNGS: Coarse rhonchi. CARDIOVASCULAR: Regular S1 and S2 and tachycardic. ABDOMEN: Soft. EXTREMITIES: Bilateral Arm edema. Cameron Davies MD Jan 01, 2020 11:53
--- NOTE | 2020-01-01 13:39 | NUR ---
P.T Note: P.T evaluation completed and tx initiated. Please refer to P.T evaluation for full report. Pt is alert Oriented to self but not to time, place and situation. Pt denied c/o pain. Pt is somewhat restless on bilateral wrist restraint, able to follow commands and converse appropriately stating she does not know where she is. Pt is generally weak and deconditioned. Pt currently require MOD A X 1 for bed mobility and transfers. Pt able to sit with BUE holding on to bed rails side by side. Pt able to stand and was able to take side steps with MOD support using the FWW. Pt appeared exhausted post P.T eval/tx. Vitals were stable. Pt will benefit from skilled P.T services to improve her strength, balance and endurance to increase functional mobility independence. Recommend SNF for further rehab intervention.
[2020-01-01] MEDS ORDERED: Acetaminophen 650mg/20.3ml GT PRN ×2 (14:00)
--- NOTE | 2020-01-01 14:01 | Nephrology Progress Note ---
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 Respiratory distress most likely secondary to pulmonary edema and or COPD exacerbation. Hyponatremia. Obese. Hypothyroidism. Elevated d-dimer. Elevated liver enzymes Plan December 31: Lab reviewed. No new labs today. Renal parameters stable. Continue her consultants. December 30: Lab reviewed. Renal parameters stable. On 1 L oxygen with cannula. Patient agitated periodically. Due transfer to [facility]. December 29: Lab reviewed. Renal parameters stable. Now on Venturi mask. CO2 lower to 35. December 28: Lab reviewed: CO2 remains high: On BiPAP. Continue per pulmonary. Stable from renal standpoint of view. December 27: Lab reviewed. Continues to retain CO2. On Venturi mask. Continue per pulmonary. Stable from renal standpoint of view. December 26: Lab reviewed. ABG reviewed. Patient retaining CO2. Remains on BiPAP. Continue per pulmonary. Stable from renal standpoint of view. December 25: Lab reviewed. TSH remains high. On nonrebreathing mask. Renal parameters stable. Synthroid dose increased. IV fluids stopped. December 24: Lab reviewed. Still on BiPAP. Renal parameters stable. December 23: Lab reviewed. Remains on BiPAP. Agitated at times. ABG ordered. Serum sodium improved. December 22: Lab reviewed. On BiPAP. Stable from renal standpoint of view. Will follow serum sodium. December 21: Labs reviewed. On nonrebreather mask. D5W 50 cc an hour started for hypernatremia. Magnesium supplement given. Continue per consultants. December 20: Patient on weaning trial. No labs done today. Discussed with RN. Continue per consultants. December 19: Patient remains intubated. Renal parameters stable. Discussed with RN. Continue per consultants. December 18: Patient self extubated yesterday however was reintubated. Remains stable from renal standpoint of view. Discussed with RN. Discussed with Dr. Myers. December 17: Remains intubated. Remains full code. Failed weaning. Stable from renal standpoint of view. Continue per consultants. Discussed with DARREL [place]. December 16: Remains intubated. Full code. Weaning in process. Stable from renal standpoint of view. December 15: Remains vented. Electrolytes improved. Continue per consultants. December 14: Patient remains in ICU intubated on ventilator. Potassium low. Phosphorus low. Supplements given. Renal parameters are stable. Continue per consultants. December 13: Patient remains in ICU intubated on ventilator. Discussed with RN. Labs reviewed. Creatinine 1.3. Potassium supplements given. Mag sulfate IV 2 g given. Continue per consultants. December 12: Patient in ICU. Intubated on ventilator. Discussed with RN. Labs reviewed. Potassium supplement given. Continue per consultants. Arterial blood gas indicative of CO2 retention. Patient on the way to ICU for intubation. Continue per pulmonary management. Pulmonary support, Check 2D echocardiogram. Previous 2D echo had a 50% ejection fraction. Keep blood sugar and blood pressure in check. Thyroid panel. Monitor electrolytes and renal parameters. Afterload reduction. Diuretics Monitor serum calcium, supplements via NG tube. Per orders. Subjective ROS Limited/Unobtainable: No Constitutional: Reports: malaise, weakness Objective Objective Last 24 Hour Vital Signs Date Time Temp Pulse Resp B/P (MAP) Pulse Ox O2 Delivery O2 Flow Rate FiO2 01/01/20 12:00 2.0 01/01/20 12:00 Nasal Cannula 2.0 01/01/20 09:17 74 01/01/20 08:00 97.2 72 21 134/47 (76) 100 01/01/20 08:00 Nasal Cannula 2.0 01/01/20 08:00 2.0 01/01/20 07:12 100 Nasal Cannula 2.0 28 01/01/20 04:00 69 01/01/20 04:00 2.0 01/01/20 04:00 Nasal Cannula 2.0 01/01/20 00:00 2.0 01/01/20 00:00 97.7 73 20 126/60 (82) 100 01/01/20 00:00 Nasal Cannula 2.0 12/31/19 23:35 73 12/31/19 22:10 98.1 72 20 120/44 (69) 95 12/31/19 21:00 74 20 140/46 (77) 100 12/31/19 20:00 98.0 78 20 140/59 (86) 98 12/31/19 20:00 Nasal Cannula 1.0 12/31/19 20:00 76 12/31/19 20:00 1.0 12/31/19 19:05 99 Nasal Cannula 1.0 24 12/31/19 19:00 72 21 124/42 (69) 100 12/31/19 18:00 98.7 79 24 121/91 (101) 99 12/31/19 17:00 81 21 154/47 (82) 100 12/31/19 16:00 Nasal Cannula 1.0 12/31/19 16:00 1.0 12/31/19 16:00 78 21 152/53 (86) 100 12/31/19 15:16 73 12/31/19 15:00 79 20 147/54 (85) 99 Intake and Output 12/31/19 01/01/20 19:00 07:00 Intake Total 310 ml 150 ml Output Total 690 ml 1375 ml Balance -380 ml -1225 ml Free Water 200 ml Tube Feeding 110 ml 150 ml Output Urine Total 690 ml 1375 ml Stool Total 0 ml 0 ml Laboratory Tests 01/01/20 12:15: POC Whole Blood Glucose 150H Height (Feet): 5 Height (Inches): 7.00 Weight (Pounds): 223 General Appearance: no apparent distress Cardiovascular: normal rate Respiratory/Chest: decreased breath sounds Abdomen: distended Bryan Ochoa MD Jan 01, 2020 14:01
--- NOTE | 2020-01-01 14:14 | NUR ---
NURSE NOTES:WOUND CARE FOLLOW-UP NOTES:Pt's skin assessed with Primary nurse in attendance. Non evidence of skin breakdown noted to Bony prominences or Sacrum. Both heels are pink and easily blanchable.Skin Barrier applied to heels but unsuccessful attempts at keeping Heel foam drsgs as pt continuously moves legs restlessly in bed removing drsgs and socks. Staff unable to keep heels floated due to restless legs.Pt has an APM/LUAN Mattress overlay.
--- NOTE | 2020-01-01 14:41 | NUR ---
CHART REVIEWED, RN INTERVIEWED, BEDSIDE SWALLOW EVALUATION COMPLETED PER MD/DR. MEZA DYSPHAGIA RISK FACTORS FOR THIS 79 Y.O. THAI & UKRAINIAN-SPEAKING FEMALE: ACUTE: Hypoxia, Dyspnea, AMS, Respiratory distress, Hyponatremia, Obese, Hypothyroidism, schizoaffective disorder, shortness of breath, decreased stamina H/O: Rhabdomyolysis, COPD with exacerbation, Hypertensive heart disease with heart failure, Parkinsons disease, encephalopathy, hyperlipidemia, DM, Dementia without behavior disturbances, hypothyroidism, GERD, schizophrenia, Bipolar d/o, Anemia, HTN., hx of non/compliance POLST: Ok to have feeding tubes, Full Code. AT SNF ON A SOFI/CCHO-MED REGULAR TEXTURE DIET AND THIN LIQUIDS WITH SF SNACKS AND NONFAT MILK. HAS A PUBLIC GUARDIAN FOR DECISIONS. AT [facility] [place]/07/19 ON REG TEXTURE DIET AND THIN LIQUIDS. PER JC ROJO, PATIENT ATE ALL OF HER CCHO-MED CARDIAC PUREED AND THIN LIQUID DIET W/O OVERT ASPIRATION. INITIAL IMPRESSIONS: PATIENT PRESENTS WITH MILD OROPHARYNGEAL DYSPHAGIA CHARACTERIZED BY DOUBLE SWALLOWS REQUIRED TO CLEAR BOLUS THROUGH PHARYNX, QUESTIONABLE HYPOXIA WHEN POSITIONED UPRIGHT FOR P.O. TRIALS (MOTION ARTIFACT FROM 02 FINGER MONITOR), DESATURATION TO HIGH 80'S DURING P.O. TRIALS CHANGES IN RESPIRATION RATE FROM BASELINE OF 20 BREATHS PER MINUTE ESCALATING TO 26 BPM, DECREASED MENTATION,REDUCED ACTIVITY TOLERANCE FOR SITTING AT 90 DEGREES FOR P.O., DELAYED INITIATION OF PHARYNGEAL PHASE OF SWALLOW. HAS SILENT ASP RISK DUE TO PD, DEMENTIA, COPD, DECREASED STAMINA, PULMONARY CHALLENGES. RECOMMENDATIONS: 1. SAFE TO RESUME P.O. WITH MODIFIED TEXTURE DIET OF PUREE AND NECTAR THICK LIQUIDS, NO STRAWS 2. TOTAL ASSIST WITH MEALS 3. CRUSH CRUSHABLE MEDS/PRESENT IN PUREE 4. MEALTIME PROTOCOL POSTED AT BEDSIDE. IF SOB DURING MEAL, STOP/RELAX, THEN RESUME MEAL. 5. ST TO FOLLOW FOR DYSPHAGIA MANAGEMENT: COMPENSATORY SWALLOW STRATEGIES, DIET TOLERANCE, ANALYZE/ADJUST DIET TEXTURE, ADVANCE TOLERATED, PATIENT/FAMILY/CAREGIVER EDUCATION 6. VIDEO SWALLOW STUDY IS RECOMMENDED THANK YOU FOR THIS REFERRAL. DISCUSSED FINDINGS WITH DARREL BOLAÑOS, CALLED DR. MEZA FOR CONFIRMATION OF RESUMPTION OF P.O., POSTED MEALTIME PROTOCOL AT BEDSIDE.
--- NOTE | 2020-01-01 17:13 | NUR ---
CASE MANAGEMENT: REVIEW SI: COPD EXACERBATION . PNA T 97.2 HR 72 RR 21 BP 134/47 SAT 100% NC/2L GLUCOSE 150 IS: SOLU MEDROL IV Q6HR SYNTHROID 100MCG IV QD PROTONIX IV Q12HR BIPAP PRN ST EVAL PT EVAL START PUREE DIET STEP DOWN UNIT STATUS DCP: PATIENT IS FROM [facility]. PATIENT REFERRED BACK TO [facility]
--- NOTE | 2020-01-01 17:16 | NUR ---
CASE MANAGEMENT: DCP PATIENT REFERRED BACK TO [facility] [phone] PH / FAX [phone]
[2020-01-01] MEDS: Lactulose 20gm/30ml UDC NG SCH (18:24)
[2020-01-01] MEDS: Os-Cal (Oyster Shell) 500mg tab NG SCH (18:25)
[2020-01-01] MEDS ORDERED: Miralax 17gm pkt NG PRN (19:00)
--- NOTE | 2020-01-01 19:05 | NUR ---
NURSE NOTES: Received report from Adam Seay RN. Patient alert x 2-3, awake, afebrile and has no respiratory distress noted. Pt able to follow commands and is communicating to nurse during hygiene care. With Nasal Cannula at 2lpm saturating 97-98%. With Right hand 22G IV line intact, patent and asymptomatic. with valerio catheter to urine bag draining well. With rectal tube in place draining well. HOB elevated, Call light within reach. Bed wheels are locked and side rails are up. continue plan of care
--- NOTE | 2020-01-01 19:35 | NUR ---
HAND-OFF: Report given to SKYLAR RN. Pt. remain stable.
[2020-01-01 20:00] VITALS: BP 146/42
--- NOTE | 2020-01-01 21:09 | General Progress Note ---
Assessment/Plan Problem List: (1) Dyspnea ICD Codes: R06.00 - Dyspnea, unspecified SNOMED: 968423811 (2) Hypothyroidism ICD Codes: E03.9 - Hypothyroidism, unspecified SNOMED: 45218905 (3) Obese ICD Codes: E66.9 - Obesity, unspecified SNOMED: 935108257, 336654422 (4) Psychosis ICD Codes: F29 - Unspecified psychosis not due to a substance or known physiological condition SNOMED: 66073077 (5) Respiratory failure ICD Codes: J96.90 - Respiratory failure, unspecified, unspecified whether with hypoxia or hypercapnia SNOMED: 548480975 (6) Respiratory distress ICD Codes: R06.03 - Acute respiratory distress SNOMED: 672589194 (7) Dyspnea ICD Codes: R06.00 - Dyspnea, unspecified SNOMED: 818512759 (8) Pneumonia ICD Codes: J18.9 - Pneumonia, unspecified organism SNOMED: 647665753 (9) Acute and chronic respiratory failure ICD Codes: J96.20 - Acute and chronic respiratory failure, unspecified whether with hypoxia or hypercapnia SNOMED: 89029023 (10) Diabetes mellitus type 2 in nonobese ICD Codes: E11.9 - Type 2 diabetes mellitus without complications SNOMED: 391813576 (11) CHF (congestive heart failure) ICD Codes: I50.9 - Heart failure, unspecified SNOMED: 10125398 Qualifiers: Qualified Codes: I50.9 - Heart failure, unspecified (12) Hypoxia ICD Codes: R09.02 - Hypoxemia SNOMED: 315631736 (13) Elevated d-dimer ICD Codes: R79.89 - Other specified abnormal findings of blood chemistry SNOMED: 237506295 (14) Schizophrenia ICD Codes: F20.9 - Schizophrenia, unspecified SNOMED: 10290764 (15) Parkinson disease ICD Codes: G20 - Parkinson's disease SNOMED: 27932755 Status: progressing, unchanged Assessment/Plan: on lasix k is improving start on puree diet more alert weak fluid overload obesity covid negative metabolic contraction elevated co2 Subjective ROS Limited/Unobtainable: Yes Allergies: Coded Allergies: LITHIUM (Verified Allergy, Unknown, 02/07/19) Objective Last 24 Hour Vital Signs Date Time Temp Pulse Resp B/P (MAP) Pulse Ox O2 Delivery O2 Flow Rate FiO2 01/01/20 20:00 Nasal Cannula 2.0 01/01/20 20:00 2.0 01/01/20 19:32 97 Nasal Cannula 2.0 28 01/01/20 16:52 68 01/01/20 16:00 2.0 01/01/20 16:00 Nasal Cannula 2.0 01/01/20 12:00 2.0 01/01/20 12:00 Nasal Cannula 2.0 01/01/20 12:00 73 01/01/20 09:17 74 01/01/20 08:00 97.2 72 21 134/47 (76) 100 01/01/20 08:00 Nasal Cannula 2.0 01/01/20 08:00 2.0 01/01/20 07:12 100 Nasal Cannula 2.0 28 01/01/20 04:00 69 01/01/20 04:00 2.0 01/01/20 04:00 Nasal Cannula 2.0 01/01/20 00:00 2.0 01/01/20 00:00 97.7 73 20 126/60 (82) 100 01/01/20 00:00 Nasal Cannula 2.0 12/31/19 23:35 73 12/31/19 22:10 98.1 72 20 120/44 (69) 95 Intake and Output 12/31/19 01/01/20 19:00 07:00 Intake Total 310 ml 150 ml Output Total 690 ml 1375 ml Balance -380 ml -1225 ml Free Water 200 ml Tube Feeding 110 ml 150 ml Output Urine Total 690 ml 1375 ml Stool Total 0 ml 0 ml Laboratory Tests 01/01/20 12:15: POC Whole Blood Glucose 150H Height (Feet): 5 Height (Inches): 7.00 Weight (Pounds): 223 Dani Perera MD Jan 01, 2020 21:09
[2020-01-01] MEDS: Miralax 17gm pkt NG SCH (21:30)
[2020-01-02] VITALS: BP 123/59
--- NOTE | 2020-01-02 02:00 | NUR ---
NURSE NOTES: Patient was given partial bed bath, gown and linens were changed. Continue plan of care.
[2020-01-02 04:00] VITALS: BP 116/47
[2020-01-02] MEDS: NovoLOG Insulin Flexpen SUBQ SCH ×3 (05:07→17:47)
[2020-01-02] MEDS: Solu-MEDROL 40mg Inj IVP SCH ×2 (05:11→12:40)
[2020-01-02 05:37] LABS: HEMATOCRIT 34.4 % (37.0-47.0); HEMOGLOBIN 11.1 G/DL (12.0-16.0); MEAN CORPUSCULAR VOLUME 101 FL (80-99); PLATELET COUNT 60 K/UL (150-450); RED BLOOD COUNT 3.41 M/UL (4.20-5.40); RED CELL DISTRIBUTION WIDTH 12.8 % (11.6-14.8); WHITE BLOOD COUNT 11.2 K/UL (4.8-10.8)
[2020-01-02 06:06] LABS: ALANINE AMINOTRANSFERASE 27 U/L (12-78); ALBUMIN 2.8 G/DL (3.4-5.0); ALBUMIN/GLOBULIN RATIO 0.7 (1.0-2.7); ALKALINE PHOSPHATASE 40 U/L (46-116); ANION GAP 5 mmol/L (5-15); ASPARTATE AMINO TRANSFERASE 16 U/L (15-37); BILIRUBIN,TOTAL 0.7 MG/DL (0.2-1.0); BLOOD UREA NITROGEN 32 mg/dL (7-18); CALCIUM 8.7 MG/DL (8.5-10.1); CARBON DIOXIDE 34 MMOL/L (21-32); CHLORIDE 107 MMOL/L (98-107); CREATININE 0.7 MG/DL (0.55-1.30); PHOSPHORUS 2.2 MG/DL (2.5-4.9); POTASSIUM 4.3 MMOL/L (3.5-5.1); SODIUM 146 MMOL/L (136-145)
--- NOTE | 2020-01-02 07:20 | NUR ---
HAND-OFF: Report given to DARREL Lugo.
--- NOTE | 2020-01-02 07:25 | NUR ---
NURSE NOTES: Report received from Deneen ROJO.Pt asleep but easily awakens with verbal command,noted no resp distress ,no signs of pain or discomfort,SR on the monitor,Ace cath draining yellow urine,Rectal tube in placed draining liquid brown stools,SR up x2 HOB elevated,call light within reach,bed lock in lowest position,will continue with plans of care.
[2020-01-02 08:00] VITALS: BP 116/47
--- NOTE | 2020-01-02 08:30 | NUR ---
NURSE NOTES: Pt woke up and eat breakfast per self ,able to swallow food,no aspiration presented.
--- NOTE | 2020-01-02 09:00 | NUR ---
NURSE NOTES: P.T. at bedside working with pt,able to follow commands,able to stand up with P.T.
[2020-01-02 09:04] LABS: HEMATOCRIT 31.9 % (37.0-47.0); HEMOGLOBIN 10.3 G/DL (12.0-16.0); MEAN CORPUSCULAR VOLUME 102 FL (80-99); PLATELET COUNT 241 K/UL (150-450); RED BLOOD COUNT 3.13 M/UL (4.20-5.40); RED CELL DISTRIBUTION WIDTH 13.6 % (11.6-14.8); WHITE BLOOD COUNT 12.6 K/UL (4.8-10.8)
--- NOTE | 2020-01-02 10:12 | NUR ---
RD ASSESSMENT & RECOMMENDATIONS SEE CARE ACTIVITY FOR COMPLETE ASSESSMENT DAILY ESTIMATED NEEDS: Needs based on Pulmonary, obesity/ 72kg abw 20-25 kcals/kg 0320-9186 total kcals 1.25-1.5 g protein/kg 90-108 g total protein 20-25 mL/kg 0434-0674 total fluid mLs NUTRITION DIAGNOSIS: Swallowing difficulty R/T dysphagia, h/o Parkinson's, respiratory failure as evidenced by pt on soft bite size diet [employer], s/p oral intubation, on OGT feeds, now s/p extubation, on bipap + NGT feeds, s/p [employer]UMENT STONECUTTER re-eval, on puree texture diet. CURRENT DIET:CCHO MED/ Low Na puree PO DIET RECOMMENDATIONS: LOW NA/ CCHO MED (texture per MONUMENT STONECUTTER) ADDITIONAL RECOMMENDATIONS: * Per SNF: HT=68" SV=[id number] (12/04/19) * Monitor lytes, replete as needed * Rec added D5 IVF while,NPO or poor po intake, to prevent hypoglycemia * Monitor Na -> trending up * Add Glucerna TID w/ meals w/ poor po intake * Monitor BMs in EMR: no recent record of BM- on lactulose * wound eval update, ELIAS fruit punch BID as tolerated.
[2020-01-02] MEDS: Amantadine 100mg cap ORAL SCH ×2 (10:17→17:43)
[2020-01-02] MEDS: Docusate 100mg/10ml Liq NG SCH ×2 (10:18→17:43)
[2020-01-02] MEDS: Os-Cal (Oyster Shell) 500mg tab NG SCH ×3 (10:18→17:44)
[2020-01-02] MEDS: Levothyroxine 125mcg tab NG SCH (10:18)
[2020-01-02] MEDS: Pantoprazole Inj IVP SCH ×2 (10:19→20:28)
[2020-01-02] MEDS: Lactulose 20gm/30ml UDC NG SCH ×2 (10:22→17:48)
--- NOTE | 2020-01-02 10:31 | General Progress Note ---
Assessment/Plan Status: progressing, unchanged Assessment/Plan: Assessment - Resp failure - r/o COVID -- x 2 negative - COPD - HTN - Anemia - Abnormal LFT Recommendations - extubated now - Elevate HOB - abx - follow labs - f/u hepatitis serologies>>> neg -repeat labs -on antoinette diet now -bowel regimen Subjective ROS Limited/Unobtainable: No Allergies: Coded Allergies: LITHIUM (Verified Allergy, Unknown, 02/07/19) Objective Last 24 Hour Vital Signs Date Time Temp Pulse Resp B/P (MAP) Pulse Ox O2 Delivery O2 Flow Rate FiO2 01/02/20 08:00 97.0 75 19 116/47 (70) 97 01/02/20 08:00 Nasal Cannula 2.0 01/02/20 07:45 79 01/02/20 04:00 97.4 82 22 116/47 (70) 100 01/02/20 04:00 2.0 01/02/20 04:00 Nasal Cannula 2.0 01/02/20 03:31 77 01/02/20 00:00 98.0 79 22 123/59 (80) 100 01/02/20 00:00 Nasal Cannula 2.0 01/02/20 00:00 2.0 01/01/20 23:28 83 01/01/20 20:00 Nasal Cannula 2.0 01/01/20 20:00 98.2 86 22 146/42 (76) 100 01/01/20 20:00 2.0 01/01/20 19:40 89 01/01/20 19:32 97 Nasal Cannula 2.0 28 01/01/20 16:52 68 01/01/20 16:00 2.0 01/01/20 16:00 Nasal Cannula 2.0 01/01/20 12:00 2.0 01/01/20 12:00 Nasal Cannula 2.0 01/01/20 12:00 73 Intake and Output 01/01/20 01/02/20 19:00 07:00 Intake Total 160 ml Output Total 610 ml 1100 ml Balance -610 ml -940 ml Intake Oral 160 ml Output Urine Total 600 ml 1000 ml Stool Total 10 ml 100 ml Laboratory Tests 01/01/20 12:15: POC Whole Blood Glucose 150H 01/01/20 23:02: POC Whole Blood Glucose 147H 01/02/20 04:20: White Blood Count 11.2H, Red Blood Count 3.41L, Hemoglobin 11.1L, Hematocrit 34.4L, Mean Corpuscular Volume 101H, Mean Corpuscular Hemoglobin 32.6H, Mean Corpuscular Hemoglobin Concent 32.3, Red Cell Distribution Width 12.8, Platelet Count 60L, Mean Platelet Volume 8.9, Neutrophils (%) (Auto) , Lymphocytes (%) ( Auto) , Monocytes (%) (Auto) , Eosinophils (%) (Auto) , Basophils (%) (Auto) , Differential Total Cells Counted 100, Neutrophils % (Manual) 88H, Lymphocytes % (Manual) 9L, Monocytes % (Manual) 3, Eosinophils % (Manual) 0, Basophils % ( Manual) 0, Band Neutrophils 0, Platelet Estimate Adequate, Platelet Morphology Normal, Clumped Platelets 3+, Hypochromasia 1+, Anisocytosis 1+, Sodium Level 146H, Potassium Level 4.3, Chloride Level 107, Carbon Dioxide Level 34H, Anion Gap 5, Blood Urea Nitrogen 32H, Creatinine 0.7, Estimat Glomerular Filtration Rate > 60, Glucose Level 169H, Calcium Level 8.7, Phosphorus Level 2.2L, Magnesium Level 2.1, Total Bilirubin 0.7, Aspartate Amino Transf (AST/SGOT) 16, Alanine Aminotransferase (ALT/SGPT) 27, Alkaline Phosphatase 40L, Total Protein 6.6, Albumin 2.8L, Globulin 3.8, Albumin/Globulin Ratio 0.7L 01/02/20 05:04: POC Whole Blood Glucose 153H 01/02/20 08:30: White Blood Count 12.6H, Red Blood Count 3.13L, Hemoglobin 10.3L, Hematocrit 31.9L, Mean Corpuscular Volume 102H, Mean Corpuscular Hemoglobin 33.0H, Mean Corpuscular Hemoglobin Concent 32.4, Red Cell Distribution Width 13.6, Platelet Count 241#, Mean Platelet Volume 7.3, Neutrophils (%) (Auto) , Lymphocytes (%) ( Auto) , Monocytes (%) (Auto) , Eosinophils (%) (Auto) , Basophils (%) (Auto) , Neutrophils % (Manual) [Pending], Lymphocytes % (Manual) [Pending], Platelet Estimate [Pending], Platelet Morphology [Pending] Height (Feet): 5 Height (Inches): 7.00 Weight (Pounds): 222 General Appearance: no apparent distress EENT: PERRL/EOMI Neck: supple Cardiovascular: normal rate Respiratory/Chest: decreased breath sounds Abdomen: normal bowel sounds, non tender, soft Extremities: non-tender Kirk Vidal MD Jan 02, 2020 10:31
--- NOTE | 2020-01-02 11:17 | Hematology/Onc Progress Note ---
Assessment/Plan Assessment/Plan Assessment and Recs # Lower extremity edema in setting of elevated ddimer --> lower ext duplex ordered to r/o dvt-->neg for dvt --> lovenox sq has been started --> low threshold for v/q or cta r/o pe # Anemia of chronic disease --> hgb 11-->10.-->9->11.9-->10.8->7.8->11->10.8->10.2-->9.6->9.5->10.8-->12--> 10 --> no e/o hemolysis --> no bleeding reported --> smear reviewed --> no go bleeding # Leukocytosis r/o infection, likely steriods related --> wbc trend 10==>12-->14->15-->12 --> steriods off --> abx off # Respiratory failure with copd exacerbation likely --> pulm toilet --> breathing rx --> steroids prn basis --> pulm eval ---> ABX per is on zosyn->now off # 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 ( combination of moderate aortic regurgitation and severe mitral regurgitation) --> diuresis as per cards --> lasix last time # Severe ascending aortic dilatation --> per Dr Keke campbell # Hypertension # Parkinson disease # Hyperlipidemia # Hypothyroidism # Dementia # Obesity # Schizophrenia --> as per [facility] --> restraints # Dvt ppx lovenox sq/scd's Appreciate business objects consultant care and alexei Rn Subjective Cardiovascular: Denies: no symptoms, chest pain, edema, irregular heart rate, lightheadedness, palpitations, syncope, other Respiratory: Denies: no symptoms, cough, shortness of breath, SOB with excertion, SOB at rest, sputum, wheezing, other Gastrointestinal/Abdominal: Denies: no symptoms, abdomen distended, abdominal pain, black stools, tarry stools, blood in stool, constipated, diarrhea, difficulty swallowing, nausea, poor appetite, poor fluid intake, rectal bleeding , vomiting, other Genitourinary: Denies: no symptoms, burning, discharge, frequency, flank pain, hematuria, incontinence, pain, urgency, other Neurologic/Psychiatric: Denies: no symptoms, anxiety, depressed, emotional problems, headache, numbness, paresthesia, pre-existing deficit, seizure, tingling, tremors, weakness, other Hematologic/Lymphatic: Denies: no symptoms, anemia, easy bleeding, easy bruising, adenopathy, other Allergies: Coded Allergies: LITHIUM (Verified Allergy, Unknown, 02/07/19) Subjective 12/12 labs are reviewed, intubated, with og, somewhat responsive, alexei rn 12/13 labs noted, hgb 7.8, tfs ok to start per gi 12/15 icu, restraints, no acute events, hep panel negative, sedated 12/16 no bleeding, in the icu, on abx, in restarints, sleepy, vent 12/17 is on vent, also is on abx, awake, with ogt 12/18 ng placed, hgb 9.6, no bleeding, no night sweats 12/19 labs reviewed, sedated, on vent, nob leeding, meds reviewed 12/20 remains on vent, audra bleeding, meds reviewed, no night sweats 12/22 hgb 9.5, to get zosyn x 1 more day, no night sweats meds reviewed 12/23 labs noted, no bleeding, with fm, no bleeding or night sweats 12/24 no bleeding, labs noted, no night sweats hgb 10, no hemolysis 12/25 remains fatigued, fm, labs are still pending from am 12/26 restraints, v mask, cxr reviewed 12/27 labs reviewed, no bleeding, hgb 10.8, no hemolysis on FM 12/29 remains disoriented on bipap and fm as needed, hgb better 12/30 wbc 15k, no bleeding, alexei rn, no night sweats off abx 12/31 wbc remains elevated, arousable, no bleeding, on fm 01/01 meds noted, labs reviewed, no bleeding on exam Objective Objective Current Medications Medications (Trade) Dose Ordered Sig/Angie Route PRN Reason Start Time Stop Time Status Last Admin Dose Admin Acetaminophen (Tylenol) 650 mg Q6H PRN GT Mild Pain (Pain Scale 1-3) 01/01/20 14:00 01/31/20 13:59 Acetaminophen (Tylenol) 1,000 mg Q6H PRN GT Moderate Pain (Pain Scale 4-6) 01/01/20 14:00 01/31/20 13:59 Amantadine HCl (Symmetrel) 100 mg TWICE A DAY ORAL 01/01/20 09:00 01/11/20 08:59 01/02/20 10:17 Aspirin (ASA) 325 mg DAILY NG 01/02/20 09:00 02/16/20 08:59 01/02/20 10:17 Atorvastatin Calcium (Lipitor) 10 mg BEDTIME NG 01/01/20 21:00 03/11/20 20:59 01/01/20 21:31 Calcium Carbonate (Os-Octavio) 500 mg THREE TIMES A DAY NG 01/01/20 18:00 03/20/20 17:59 01/02/20 10:18 Clonidine HCl (Catapres Tab) 0.1 mg Q6H PRN NG For high BP over 160 systolic 01/01/20 14:15 03/11/20 12:30 Dextrose (Dextrose 50%) 25 ml Q30M PRN IV Hypoglycemia 12/31/19 22:45 03/12/20 07:14 Dextrose (Dextrose 50%) 50 ml Q30M PRN IV Hypoglycemia 12/31/19 22:45 03/12/20 07:14 Divalproex Sodium (Depakote) 250 mg EVERY 12 HOURS ORAL 01/01/20 09:00 01/12/20 20:59 01/02/20 10:17 Docusate Sodium (Colace) 100 mg TWICE A DAY NG 01/01/20 09:00 01/31/20 08:59 01/02/20 10:18 Insulin Aspart (NovoLOG) EVERY 6 HOURS SUBQ 01/01/20 00:00 03/12/20 11:59 01/02/20 05:07 Lactulose (Cephulac) 20 gm BID NG 01/01/20 18:00 01/24/20 08:59 01/02/20 10:22 Levothyroxine Sodium (Synthroid) 125 mcg DAILY NG 01/02/20 09:00 02/01/20 08:59 01/02/20 10:18 Methylprednisolone Sodium Succinate (Solu-MEDROL) 20 mg EVERY 6 HOURS IVP 01/01/20 00:00 03/18/20 11:59 01/02/20 05:11 Nitroglycerin (Ntg) 0.4 mg Q5MIN X 3 DOSES PRN SL CHEST PAIN 12/31/19 22:30 01/10/20 21:44 Pantoprazole (Protonix) 40 mg EVERY 12 HOURS IVP 01/01/20 09:00 01/13/20 08:59 01/02/20 10:19 Polyethylene Glycol (Miralax) 17 gm BEDTIME NG 01/01/20 21:00 01/18/20 20:59 01/01/20 21:30 Polyethylene Glycol (Miralax) 17 gm DAILYPRN PRN NG Constipation 01/01/20 19:00 01/23/20 18:59 Potassium Phosphate 20 mm/ Sodium Chloride 281.6667 ml @ 46.944 m... ONCE ONCE IV 01/02/20 12:00 01/02/20 17:59 Quetiapine Fumarate (SEROqueL) 50 mg Q12HR NG 01/01/20 21:00 02/05/20 20:59 01/02/20 10:19 Last 24 Hour Vital Signs Date Time Temp Pulse Resp B/P (MAP) Pulse Ox O2 Delivery O2 Flow Rate FiO2 01/02/20 08:00 97.0 75 19 116/47 (70) 97 01/02/20 08:00 Nasal Cannula 2.0 01/02/20 07:45 79 01/02/20 04:00 97.4 82 22 116/47 (70) 100 01/02/20 04:00 2.0 01/02/20 04:00 Nasal Cannula 2.0 01/02/20 03:31 77 01/02/20 00:00 98.0 79 22 123/59 (80) 100 01/02/20 00:00 Nasal Cannula 2.0 01/02/20 00:00 2.0 01/01/20 23:28 83 01/01/20 20:00 Nasal Cannula 2.0 01/01/20 20:00 98.2 86 22 146/42 (76) 100 01/01/20 20:00 2.0 01/01/20 19:40 89 01/01/20 19:32 97 Nasal Cannula 2.0 28 01/01/20 16:52 68 01/01/20 16:00 2.0 01/01/20 16:00 Nasal Cannula 2.0 01/01/20 12:00 2.0 01/01/20 12:00 Nasal Cannula 2.0 01/01/20 12:00 73 01/01/20 09:17 74 01/01/20 08:00 97.2 72 21 134/47 (76) 100 01/01/20 08:00 Nasal Cannula 2.0 01/01/20 08:00 2.0 01/01/20 07:12 100 Nasal Cannula 2.0 28 01/01/20 04:00 69 01/01/20 04:00 2.0 01/01/20 04:00 Nasal Cannula 2.0 01/01/20 00:00 2.0 01/01/20 00:00 97.7 73 20 126/60 (82) 100 01/01/20 00:00 Nasal Cannula 2.0 12/31/19 23:35 73 12/31/19 22:10 98.1 72 20 120/44 (69) 95 12/31/19 21:00 74 20 140/46 (77) 100 12/31/19 20:00 98.0 78 20 140/59 (86) 98 12/31/19 20:00 Nasal Cannula 1.0 12/31/19 20:00 76 12/31/19 20:00 1.0 12/31/19 19:05 99 Nasal Cannula 1.0 24 12/31/19 19:00 72 21 124/42 (69) 100 12/31/19 18:00 98.7 79 24 121/91 (101) 99 12/31/19 17:00 81 21 154/47 (82) 100 12/31/19 16:00 Nasal Cannula 1.0 12/31/19 16:00 1.0 12/31/19 16:00 78 21 152/53 (86) 100 12/31/19 15:16 73 12/31/19 15:00 79 20 147/54 (85) 99 12/31/19 14:00 70 17 137/39 (71) 99 12/31/19 13:00 71 20 135/41 (72) 99 12/31/19 12:00 Nasal Cannula 1.0 12/31/19 12:00 1.0 12/31/19 12:00 98.6 70 20 127/44 (71) 100 12/31/19 11:53 67 Intake and Output 01/01/20 01/02/20 19:00 07:00 Intake Total 160 ml Output Total 610 ml 1100 ml Balance -610 ml -940 ml Intake Oral 160 ml Output Urine Total 600 ml 1000 ml Stool Total 10 ml 100 ml Labs Test 12/30/19 18:27 12/30/19 20:03 12/30/19 23:28 12/31/19 00:42 POC Whole Blood Glucose 147 MG/DL (74-106) 151 MG/DL (74-106) 156 MG/DL (74-106) Arterial Blood pH 7.382 (7.350-7.450) Arterial Blood Partial Pressure CO2 62.0 mmHg (35.0-45.0) Arterial Blood Partial Pressure O2 72.6 mmHg (75.0-100.0) Arterial Blood HCO3 36.0 mmol/L (22.0-26.0) Arterial Blood Oxygen Saturation 93.8 % (95-100) Arterial Blood Base Excess 9.2 (-2-2) Raphael Test Positive Test 12/31/19 05:00 01/01/20 12:15 01/01/20 23:02 01/02/20 04:20 Sodium Level 142 MMOL/L (136-145) 146 MMOL/L (136-145) Potassium Level 3.9 MMOL/L (3.5-5.1) 4.3 MMOL/L (3.5-5.1) Chloride Level 103 MMOL/L (98-107) 107 MMOL/L (98-107) Carbon Dioxide Level 35 MMOL/L (21-32) 34 MMOL/L (21-32) Anion Gap 4 mmol/L (5-15) 5 mmol/L (5-15) Blood Urea Nitrogen 39 mg/dL (7-18) 32 mg/dL (7-18) Creatinine 0.9 MG/DL (0.55-1.30) 0.7 MG/DL (0.55-1.30) Estimat Glomerular Filtration Rate > 60 mL/min (>60) > 60 mL/min (>60) Glucose Level 156 MG/DL (74-106) 169 MG/DL (74-106) Calcium Level 9.1 MG/DL (8.5-10.1) 8.7 MG/DL (8.5-10.1) Phosphorus Level 3.4 MG/DL (2.5-4.9) 2.2 MG/DL (2.5-4.9) Magnesium Level 2.2 MG/DL (1.8-2.4) 2.1 MG/DL (1.8-2.4) Total Bilirubin 0.6 MG/DL (0.2-1.0) 0.7 MG/DL (0.2-1.0) Aspartate Amino Transf (AST/SGOT) 12 U/L (15-37) 16 U/L (15-37) Alanine Aminotransferase (ALT/SGPT) 27 U/L (12-78) 27 U/L (12-78) Alkaline Phosphatase 42 U/L (46-116) 40 U/L (46-116) Total Protein 6.9 G/DL (6.4-8.2) 6.6 G/DL (6.4-8.2) Albumin 3.1 G/DL (3.4-5.0) 2.8 G/DL (3.4-5.0) Globulin 3.8 g/dL 3.8 g/dL Albumin/Globulin Ratio 0.8 (1.0-2.7) 0.7 (1.0-2.7) Thyroid Stimulating Hormone (TSH) 4.938 uiU/mL (0.358-3.740) POC Whole Blood Glucose 150 MG/DL (74-106) 147 MG/DL (74-106) White Blood Count 11.2 K/UL (4.8-10.8) Red Blood Count 3.41 M/UL (4.20-5.40) Hemoglobin 11.1 G/DL (12.0-16.0) Hematocrit 34.4 % (37.0-47.0) Mean Corpuscular Volume 101 FL (80-99) Mean Corpuscular Hemoglobin 32.6 PG (27.0-31.0) Mean Corpuscular Hemoglobin Concent 32.3 G/DL (32.0-36.0) Red Cell Distribution Width 12.8 % (11.6-14.8) Platelet Count 60 K/UL (150-450) Mean Platelet Volume 8.9 FL (6.5-10.1) Neutrophils (%) (Auto) % (45.0-75.0) Lymphocytes (%) (Auto) % (20.0-45.0) Monocytes (%) (Auto) % (1.0-10.0) Eosinophils (%) (Auto) % (0.0-3.0) Basophils (%) (Auto) % (0.0-2.0) Differential Total Cells Counted 100 Neutrophils % (Manual) 88 % (45-75) Lymphocytes % (Manual) 9 % (20-45) Monocytes % (Manual) 3 % (1-10) Eosinophils % (Manual) 0 % (0-3) Basophils % (Manual) 0 % (0-2) Band Neutrophils 0 % (0-8) Platelet Estimate Adequate Platelet Morphology Normal Clumped Platelets 3+ Hypochromasia 1+ Anisocytosis 1+ Test 01/02/20 05:04 01/02/20 08:30 POC Whole Blood Glucose 153 MG/DL (74-106) White Blood Count 12.6 K/UL (4.8-10.8) Red Blood Count 3.13 M/UL (4.20-5.40) Hemoglobin 10.3 G/DL (12.0-16.0) Hematocrit 31.9 % (37.0-47.0) Mean Corpuscular Volume 102 FL (80-99) Mean Corpuscular Hemoglobin 33.0 PG (27.0-31.0) Mean Corpuscular Hemoglobin Concent 32.4 G/DL (32.0-36.0) Red Cell Distribution Width 13.6 % (11.6-14.8) Platelet Count 241 K/UL (150-450) Mean Platelet Volume 7.3 FL (6.5-10.1) Neutrophils (%) (Auto) % (45.0-75.0) Lymphocytes (%) (Auto) % (20.0-45.0) Monocytes (%) (Auto) % (1.0-10.0) Eosinophils (%) (Auto) % (0.0-3.0) Basophils (%) (Auto) % (0.0-2.0) Height (Feet): 5 Height (Inches): 7.00 Weight (Pounds): 222 Objective Vitals: reviewed General: NAD HEENT: nc, at ++ngt, facemask+ Neck: supple Chest: decreased breath sounds bilaterally Cardiovascular: RRR, no s3, s4 Abdomen: soft, nontender, nd Extremities: 1-2 + edema, scd's Neuro: nonverbal : valerio+ Kleynberg,Frank L. MD Jan 02, 2020 11:17
--- NOTE | 2020-01-02 11:57 | Cardiac Electrophysiology PN ---
Assessment/Plan Assessment/Plan 1. S/P Recurrent respiratory failure with BNP of more than 19,000. Normal EF. On 2 liter NC. Off Lasix 2. Bradycardia requiring atropine due to respiratory failure . No further 3. Bilateral UE edema. Venous Duplex was negative on 12/12/19. 4. History of Parkinson disease. 5. Hyperlipidemia. YOSELYN RN Subjective Subjective On 2 liter Nasal Cannula on SDU. Follows command and ate breakfast Objective Last 24 Hour Vital Signs Date Time Temp Pulse Resp B/P (MAP) Pulse Ox O2 Delivery O2 Flow Rate FiO2 01/02/20 08:00 97.0 75 19 116/47 (70) 97 01/02/20 08:00 Nasal Cannula 2.0 01/02/20 07:45 79 01/02/20 04:00 97.4 82 22 116/47 (70) 100 01/02/20 04:00 2.0 01/02/20 04:00 Nasal Cannula 2.0 01/02/20 03:31 77 01/02/20 00:00 98.0 79 22 123/59 (80) 100 01/02/20 00:00 Nasal Cannula 2.0 01/02/20 00:00 2.0 01/01/20 23:28 83 01/01/20 20:00 Nasal Cannula 2.0 01/01/20 20:00 98.2 86 22 146/42 (76) 100 01/01/20 20:00 2.0 01/01/20 19:40 89 01/01/20 19:32 97 Nasal Cannula 2.0 28 01/01/20 16:52 68 01/01/20 16:00 2.0 01/01/20 16:00 Nasal Cannula 2.0 01/01/20 12:00 2.0 01/01/20 12:00 Nasal Cannula 2.0 01/01/20 12:00 73 Intake and Output 01/01/20 01/02/20 19:00 07:00 Intake Total 160 ml Output Total 610 ml 1100 ml Balance -610 ml -940 ml Intake Oral 160 ml Output Urine Total 600 ml 1000 ml Stool Total 10 ml 100 ml Laboratory Tests Test 01/01/20 12:15 01/01/20 23:02 01/02/20 04:20 01/02/20 05:04 POC Whole Blood Glucose 150 MG/DL (74-106) H 147 MG/DL (74-106) H 153 MG/DL (74-106) H White Blood Count 11.2 K/UL (4.8-10.8) H Red Blood Count 3.41 M/UL (4.20-5.40) L Hemoglobin 11.1 G/DL (12.0-16.0) L Hematocrit 34.4 % (37.0-47.0) L Mean Corpuscular Volume 101 FL (80-99) H Mean Corpuscular Hemoglobin 32.6 PG (27.0-31.0) H Mean Corpuscular Hemoglobin Concent 32.3 G/DL (32.0-36.0) Red Cell Distribution Width 12.8 % (11.6-14.8) Platelet Count 60 K/UL (150-450) L Mean Platelet Volume 8.9 FL (6.5-10.1) Neutrophils (%) (Auto) % (45.0-75.0) Lymphocytes (%) (Auto) % (20.0-45.0) Monocytes (%) (Auto) % (1.0-10.0) Eosinophils (%) (Auto) % (0.0-3.0) Basophils (%) (Auto) % (0.0-2.0) Differential Total Cells Counted 100 Neutrophils % (Manual) 88 % (45-75) H Lymphocytes % (Manual) 9 % (20-45) L Monocytes % (Manual) 3 % (1-10) Eosinophils % (Manual) 0 % (0-3) Basophils % (Manual) 0 % (0-2) Band Neutrophils 0 % (0-8) Platelet Estimate Adequate Platelet Morphology Normal Clumped Platelets 3+ Hypochromasia 1+ Anisocytosis 1+ Sodium Level 146 MMOL/L (136-145) H Potassium Level 4.3 MMOL/L (3.5-5.1) Chloride Level 107 MMOL/L (98-107) Carbon Dioxide Level 34 MMOL/L (21-32) H Anion Gap 5 mmol/L (5-15) Blood Urea Nitrogen 32 mg/dL (7-18) H Creatinine 0.7 MG/DL (0.55-1.30) Estimat Glomerular Filtration Rate > 60 mL/min (>60) Glucose Level 169 MG/DL (74-106) H Calcium Level 8.7 MG/DL (8.5-10.1) Phosphorus Level 2.2 MG/DL (2.5-4.9) L Magnesium Level 2.1 MG/DL (1.8-2.4) Total Bilirubin 0.7 MG/DL (0.2-1.0) Aspartate Amino Transf (AST/SGOT) 16 U/L (15-37) Alanine Aminotransferase (ALT/SGPT) 27 U/L (12-78) Alkaline Phosphatase 40 U/L (46-116) L Total Protein 6.6 G/DL (6.4-8.2) Albumin 2.8 G/DL (3.4-5.0) L Globulin 3.8 g/dL Albumin/Globulin Ratio 0.7 (1.0-2.7) L Test 01/02/20 08:30 White Blood Count 12.6 K/UL (4.8-10.8) H Red Blood Count 3.13 M/UL (4.20-5.40) L Hemoglobin 10.3 G/DL (12.0-16.0) L Hematocrit 31.9 % (37.0-47.0) L Mean Corpuscular Volume 102 FL (80-99) H Mean Corpuscular Hemoglobin 33.0 PG (27.0-31.0) H Mean Corpuscular Hemoglobin Concent 32.4 G/DL (32.0-36.0) Red Cell Distribution Width 13.6 % (11.6-14.8) Platelet Count 241 K/UL (150-450) # Mean Platelet Volume 7.3 FL (6.5-10.1) Neutrophils (%) (Auto) % (45.0-75.0) Lymphocytes (%) (Auto) % (20.0-45.0) Monocytes (%) (Auto) % (1.0-10.0) Eosinophils (%) (Auto) % (0.0-3.0) Basophils (%) (Auto) % (0.0-2.0) Differential Total Cells Counted 100 Neutrophils % (Manual) 93 % (45-75) H Lymphocytes % (Manual) 5 % (20-45) L Monocytes % (Manual) 2 % (1-10) Eosinophils % (Manual) 0 % (0-3) Basophils % (Manual) 0 % (0-2) Band Neutrophils 0 % (0-8) Platelet Estimate Adequate Platelet Morphology Normal Hypochromasia 1+ Anisocytosis 1+ Macrocytosis 1+ Objective HEAD AND NECK: No JVD. LUNGS: Coarse rhonchi. CARDIOVASCULAR: Regular S1 and S2 and tachycardic. ABDOMEN: Soft. EXTREMITIES: Bilateral Arm edema. Cameron Davies MD Jan 02, 2020 11:57
--- NOTE | 2020-01-02 11:59 | Infectious Diseases Prog Note ---
Assessment/Plan Assessment/Plan IMPRESSION: COPD exacerbation, Pneumonia, COID19 X 2: negative Acute respiratory failure with hypercapnia Dementia, Parkinson, Mitral valve regurgitation, Hypertension, Hypothyroidism. 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 RECOMMENDATION: Observe off antibiotic Taper steroids Remove Ace catheter Agree with discharge to SNF Subjective ROS Limited/Unobtainable: Yes Constitutional: Denies: fever Allergies: Coded Allergies: LITHIUM (Verified Allergy, Unknown, 02/07/19) Objective Last 24 Hour Vital Signs Date Time Temp Pulse Resp B/P (MAP) Pulse Ox O2 Delivery O2 Flow Rate FiO2 01/02/20 08:00 97.0 75 19 116/47 (70) 97 01/02/20 08:00 Nasal Cannula 2.0 01/02/20 07:45 79 01/02/20 04:00 97.4 82 22 116/47 (70) 100 01/02/20 04:00 2.0 01/02/20 04:00 Nasal Cannula 2.0 01/02/20 03:31 77 01/02/20 00:00 98.0 79 22 123/59 (80) 100 01/02/20 00:00 Nasal Cannula 2.0 01/02/20 00:00 2.0 01/01/20 23:28 83 01/01/20 20:00 Nasal Cannula 2.0 01/01/20 20:00 98.2 86 22 146/42 (76) 100 01/01/20 20:00 2.0 01/01/20 19:40 89 01/01/20 19:32 97 Nasal Cannula 2.0 28 01/01/20 16:52 68 01/01/20 16:00 2.0 01/01/20 16:00 Nasal Cannula 2.0 01/01/20 12:00 2.0 01/01/20 12:00 Nasal Cannula 2.0 01/01/20 12:00 73 Height (Feet): 5 Height (Inches): 7.00 Weight (Pounds): 222 HEENT: mucous membranes moist Respiratory/Chest: lungs clear, other - oxygen by nasal cannula Cardiovascular: normal rate Abdomen: soft, non tender Extremities: no edema Neurologic/Psychiatric: other - sleeping & snoring Laboratory Tests Test 01/01/20 12:15 01/01/20 23:02 01/02/20 04:20 01/02/20 05:04 POC Whole Blood Glucose 150 MG/DL (74-106) H 147 MG/DL (74-106) H 153 MG/DL (74-106) H White Blood Count 11.2 K/UL (4.8-10.8) H Red Blood Count 3.41 M/UL (4.20-5.40) L Hemoglobin 11.1 G/DL (12.0-16.0) L Hematocrit 34.4 % (37.0-47.0) L Mean Corpuscular Volume 101 FL (80-99) H Mean Corpuscular Hemoglobin 32.6 PG (27.0-31.0) H Mean Corpuscular Hemoglobin Concent 32.3 G/DL (32.0-36.0) Red Cell Distribution Width 12.8 % (11.6-14.8) Platelet Count 60 K/UL (150-450) L Mean Platelet Volume 8.9 FL (6.5-10.1) Neutrophils (%) (Auto) % (45.0-75.0) Lymphocytes (%) (Auto) % (20.0-45.0) Monocytes (%) (Auto) % (1.0-10.0) Eosinophils (%) (Auto) % (0.0-3.0) Basophils (%) (Auto) % (0.0-2.0) Differential Total Cells Counted 100 Neutrophils % (Manual) 88 % (45-75) H Lymphocytes % (Manual) 9 % (20-45) L Monocytes % (Manual) 3 % (1-10) Eosinophils % (Manual) 0 % (0-3) Basophils % (Manual) 0 % (0-2) Band Neutrophils 0 % (0-8) Platelet Estimate Adequate Platelet Morphology Normal Clumped Platelets 3+ Hypochromasia 1+ Anisocytosis 1+ Sodium Level 146 MMOL/L (136-145) H Potassium Level 4.3 MMOL/L (3.5-5.1) Chloride Level 107 MMOL/L (98-107) Carbon Dioxide Level 34 MMOL/L (21-32) H Anion Gap 5 mmol/L (5-15) Blood Urea Nitrogen 32 mg/dL (7-18) H Creatinine 0.7 MG/DL (0.55-1.30) Estimat Glomerular Filtration Rate > 60 mL/min (>60) Glucose Level 169 MG/DL (74-106) H Calcium Level 8.7 MG/DL (8.5-10.1) Phosphorus Level 2.2 MG/DL (2.5-4.9) L Magnesium Level 2.1 MG/DL (1.8-2.4) Total Bilirubin 0.7 MG/DL (0.2-1.0) Aspartate Amino Transf (AST/SGOT) 16 U/L (15-37) Alanine Aminotransferase (ALT/SGPT) 27 U/L (12-78) Alkaline Phosphatase 40 U/L (46-116) L Total Protein 6.6 G/DL (6.4-8.2) Albumin 2.8 G/DL (3.4-5.0) L Globulin 3.8 g/dL Albumin/Globulin Ratio 0.7 (1.0-2.7) L Test 01/02/20 08:30 White Blood Count 12.6 K/UL (4.8-10.8) H Red Blood Count 3.13 M/UL (4.20-5.40) L Hemoglobin 10.3 G/DL (12.0-16.0) L Hematocrit 31.9 % (37.0-47.0) L Mean Corpuscular Volume 102 FL (80-99) H Mean Corpuscular Hemoglobin 33.0 PG (27.0-31.0) H Mean Corpuscular Hemoglobin Concent 32.4 G/DL (32.0-36.0) Red Cell Distribution Width 13.6 % (11.6-14.8) Platelet Count 241 K/UL (150-450) # Mean Platelet Volume 7.3 FL (6.5-10.1) Neutrophils (%) (Auto) % (45.0-75.0) Lymphocytes (%) (Auto) % (20.0-45.0) Monocytes (%) (Auto) % (1.0-10.0) Eosinophils (%) (Auto) % (0.0-3.0) Basophils (%) (Auto) % (0.0-2.0) Differential Total Cells Counted 100 Neutrophils % (Manual) 93 % (45-75) H Lymphocytes % (Manual) 5 % (20-45) L Monocytes % (Manual) 2 % (1-10) Eosinophils % (Manual) 0 % (0-3) Basophils % (Manual) 0 % (0-2) Band Neutrophils 0 % (0-8) Platelet Estimate Adequate Platelet Morphology Normal Hypochromasia 1+ Anisocytosis 1+ Macrocytosis 1+ Current Medications Medications (Trade) Dose Ordered Sig/Angie Route PRN Reason Start Time Stop Time Status Last Admin Dose Admin Acetaminophen (Tylenol) 650 mg Q6H PRN GT Mild Pain (Pain Scale 1-3) 01/01/20 14:00 01/31/20 13:59 Acetaminophen (Tylenol) 1,000 mg Q6H PRN GT Moderate Pain (Pain Scale 4-6) 01/01/20 14:00 01/31/20 13:59 Amantadine HCl (Symmetrel) 100 mg TWICE A DAY ORAL 01/01/20 09:00 01/11/20 08:59 01/02/20 10:17 Aspirin (ASA) 325 mg DAILY NG 01/02/20 09:00 02/16/20 08:59 01/02/20 10:17 Atorvastatin Calcium (Lipitor) 10 mg BEDTIME NG 01/01/20 21:00 03/11/20 20:59 01/01/20 21:31 Calcium Carbonate (Os-Octavio) 500 mg THREE TIMES A DAY NG 01/01/20 18:00 03/20/20 17:59 01/02/20 10:18 Clonidine HCl (Catapres Tab) 0.1 mg Q6H PRN NG For high BP over 160 systolic 01/01/20 14:15 03/11/20 12:30 Dextrose (Dextrose 50%) 25 ml Q30M PRN IV Hypoglycemia 12/31/19 22:45 03/12/20 07:14 Dextrose (Dextrose 50%) 50 ml Q30M PRN IV Hypoglycemia 12/31/19 22:45 03/12/20 07:14 Divalproex Sodium (Depakote) 250 mg EVERY 12 HOURS ORAL 01/01/20 09:00 01/12/20 20:59 01/02/20 10:17 Docusate Sodium (Colace) 100 mg TWICE A DAY NG 01/01/20 09:00 01/31/20 08:59 01/02/20 10:18 Insulin Aspart (NovoLOG) EVERY 6 HOURS SUBQ 01/01/20 00:00 03/12/20 11:59 01/02/20 05:07 Lactulose (Cephulac) 20 gm BID NG 01/01/20 18:00 01/24/20 08:59 01/02/20 10:22 Levothyroxine Sodium (Synthroid) 125 mcg DAILY NG 01/02/20 09:00 02/01/20 08:59 01/02/20 10:18 Methylprednisolone Sodium Succinate (Solu-MEDROL) 20 mg EVERY 6 HOURS IVP 01/01/20 00:00 03/18/20 11:59 01/02/20 05:11 Nitroglycerin (Ntg) 0.4 mg Q5MIN X 3 DOSES PRN SL CHEST PAIN 12/31/19 22:30 01/10/20 21:44 Pantoprazole (Protonix) 40 mg EVERY 12 HOURS IVP 01/01/20 09:00 01/13/20 08:59 01/02/20 10:19 Polyethylene Glycol (Miralax) 17 gm BEDTIME NG 01/01/20 21:00 01/18/20 20:59 01/01/20 21:30 Polyethylene Glycol (Miralax) 17 gm DAILYPRN PRN NG Constipation 01/01/20 19:00 01/23/20 18:59 Potassium Phosphate 20 mm/ Sodium Chloride 281.6667 ml @ 46.944 m... ONCE ONCE IV 01/02/20 12:00 01/02/20 17:59 Quetiapine Fumarate (SEROqueL) 50 mg Q12HR NG 01/01/20 21:00 02/05/20 20:59 01/02/20 10:19 Lei Chan MD Jan 02, 2020 11:59
[2020-01-02 12:00] VITALS: BP 119/50
[2020-01-02] MEDS ORDERED: Potassium Phosphate 20 MM in NS 275 ML IV ONE (12:00)
--- NOTE | 2020-01-02 12:32 | NUR ---
ST NOTE SWALLOW STATUS Patient being seen for ongoing dysphagia tx and management, PO diet initiated yesterday 01/01/20 of Moist Puree and [place] Thick Liquids; Bedside Swallow Evaluation completed by Viji Hayward CCC-SHANK SKINNER . Per RN Patient consumed breakfast meal without significant overt s/s of aspiration. Patient seen with lunchtime meal tray. Patients voice is moderately dysphonic characterized strained and harsh vocal quality, abnormally low in pitch, and reduced vocal intensity, given Patient is s/p intubation and extubation, concern for reduced airway protection. Patient noted with moderate coughing during intake of moist puree and nectar thick liquids, SHANK SKINNER in room while NA is assisting Patient with PO intake. NA ceased feeding Patient due to ongoing overt s/s of aspiration with current PO diet. Given Patient with ongoing overt s/s of aspiration with modified texture, recommend Patient have Modified Barium Swallow Study (MBSS) to further evaluate swallow physiology and swallow efficiency. SHANK SKINNER made RN aware of plan, hope to complete MBSS today. Will f/u with additional recommendations s/p MBSS. SHANK SKINNER [phone]
--- NOTE | 2020-01-02 12:36 | General Progress Note ---
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 - Other specified diabetes mellitus without complications SNOMED: 407420257 (2) Parkinson disease ICD Codes: G20 - Parkinson's disease SNOMED: 14580297 (3) Schizophrenia ICD Codes: F20.9 - Schizophrenia, unspecified SNOMED: 31868292 (4) Hypertension ICD Codes: I10 - Essential (primary) hypertension SNOMED: 99288705 (5) Respiratory failure ICD Codes: J96.90 - Respiratory failure, unspecified, unspecified whether with hypoxia or hypercapnia SNOMED: 555023252 (6) Hypothyroidism ICD Codes: E03.9 - Hypothyroidism, unspecified SNOMED: 08831382 (7) Diabetes mellitus type 2 in nonobese ICD Codes: E11.9 - Type 2 diabetes mellitus without complications SNOMED: 689325685 Status: progressing, unchanged Assessment/Plan: continue Levothyroxine 125 mcg daily continue Novolog sliding scale every 6 hours hypoglycemia protocol in order Subjective ROS Limited/Unobtainable: Yes Allergies: Coded Allergies: LITHIUM (Verified Allergy, Unknown, 02/07/19) Subjective events noted glucose values are stable Item Value Date Time Bedside Blood Glucose 153 mg/dl H 01/02/20 0600 Bedside Blood Glucose 147 mg/dl H 01/02/20 0000 Bedside Blood Glucose 102 mg/dl 01/01/20 1800 Bedside Blood Glucose 150 mg/dl H 01/01/20 1231 Objective Last 24 Hour Vital Signs Date Time Temp Pulse Resp B/P (MAP) Pulse Ox O2 Delivery O2 Flow Rate FiO2 01/02/20 08:00 97.0 75 19 116/47 (70) 97 01/02/20 08:00 Nasal Cannula 2.0 01/02/20 07:45 79 01/02/20 04:00 97.4 82 22 116/47 (70) 100 01/02/20 04:00 2.0 01/02/20 04:00 Nasal Cannula 2.0 01/02/20 03:31 77 01/02/20 00:00 98.0 79 22 123/59 (80) 100 01/02/20 00:00 Nasal Cannula 2.0 01/02/20 00:00 2.0 01/01/20 23:28 83 01/01/20 20:00 Nasal Cannula 2.0 01/01/20 20:00 98.2 86 22 146/42 (76) 100 01/01/20 20:00 2.0 01/01/20 19:40 89 01/01/20 19:32 97 Nasal Cannula 2.0 28 01/01/20 16:52 68 01/01/20 16:00 2.0 01/01/20 16:00 Nasal Cannula 2.0 Intake and Output 01/01/20 01/02/20 19:00 07:00 Intake Total 160 ml Output Total 610 ml 1100 ml Balance -610 ml -940 ml Intake Oral 160 ml Output Urine Total 600 ml 1000 ml Stool Total 10 ml 100 ml Laboratory Tests 01/01/20 23:02: POC Whole Blood Glucose 147H 01/02/20 04:20: White Blood Count 11.2H, Red Blood Count 3.41L, Hemoglobin 11.1L, Hematocrit 34.4L, Mean Corpuscular Volume 101H, Mean Corpuscular Hemoglobin 32.6H, Mean Corpuscular Hemoglobin Concent 32.3, Red Cell Distribution Width 12.8, Platelet Count 60L, Mean Platelet Volume 8.9, Neutrophils (%) (Auto) , Lymphocytes (%) ( Auto) , Monocytes (%) (Auto) , Eosinophils (%) (Auto) , Basophils (%) (Auto) , Differential Total Cells Counted 100, Neutrophils % (Manual) 88H, Lymphocytes % (Manual) 9L, Monocytes % (Manual) 3, Eosinophils % (Manual) 0, Basophils % ( Manual) 0, Band Neutrophils 0, Platelet Estimate Adequate, Platelet Morphology Normal, Clumped Platelets 3+, Hypochromasia 1+, Anisocytosis 1+, Sodium Level 146H, Potassium Level 4.3, Chloride Level 107, Carbon Dioxide Level 34H, Anion Gap 5, Blood Urea Nitrogen 32H, Creatinine 0.7, Estimat Glomerular Filtration Rate > 60, Glucose Level 169H, Calcium Level 8.7, Phosphorus Level 2.2L, Magnesium Level 2.1, Total Bilirubin 0.7, Aspartate Amino Transf (AST/SGOT) 16, Alanine Aminotransferase (ALT/SGPT) 27, Alkaline Phosphatase 40L, Total Protein 6.6, Albumin 2.8L, Globulin 3.8, Albumin/Globulin Ratio 0.7L 01/02/20 05:04: POC Whole Blood Glucose 153H 01/02/20 08:30: White Blood Count 12.6H, Red Blood Count 3.13L, Hemoglobin 10.3L, Hematocrit 31.9L, Mean Corpuscular Volume 102H, Mean Corpuscular Hemoglobin 33.0H, Mean Corpuscular Hemoglobin Concent 32.4, Red Cell Distribution Width 13.6, Platelet Count 241#, Mean Platelet Volume 7.3, Neutrophils (%) (Auto) , Lymphocytes (%) ( Auto) , Monocytes (%) (Auto) , Eosinophils (%) (Auto) , Basophils (%) (Auto) , Differential Total Cells Counted 100, Neutrophils % (Manual) 93H, Lymphocytes % (Manual) 5L, Monocytes % (Manual) 2, Eosinophils % (Manual) 0, Basophils % ( Manual) 0, Band Neutrophils 0, Platelet Estimate Adequate, Platelet Morphology Normal, Hypochromasia 1+, Anisocytosis 1+, Macrocytosis 1+ Height (Feet): 5 Height (Inches): 7.00 Weight (Pounds): 222 General Appearance: lethargic Respiratory/Chest: decreased breath sounds Abdomen: normal bowel sounds Objective Current Medications Medications (Trade) Dose Ordered Sig/Angie Route PRN Reason Start Time Stop Time Status Last Admin Dose Admin Acetaminophen (Tylenol) 650 mg Q6H PRN GT Mild Pain (Pain Scale 1-3) 01/01/20 14:00 01/31/20 13:59 Acetaminophen (Tylenol) 1,000 mg Q6H PRN GT Moderate Pain (Pain Scale 4-6) 01/01/20 14:00 01/31/20 13:59 Amantadine HCl (Symmetrel) 100 mg TWICE A DAY ORAL 01/01/20 09:00 01/11/20 08:59 01/02/20 10:17 Aspirin (ASA) 325 mg DAILY NG 01/02/20 09:00 02/16/20 08:59 01/02/20 10:17 Atorvastatin Calcium (Lipitor) 10 mg BEDTIME NG 01/01/20 21:00 03/11/20 20:59 01/01/20 21:31 Calcium Carbonate (Os-Octavio) 500 mg THREE TIMES A DAY NG 01/01/20 18:00 03/20/20 17:59 01/02/20 10:18 Clonidine HCl (Catapres Tab) 0.1 mg Q6H PRN NG For high BP over 160 systolic 01/01/20 14:15 03/11/20 12:30 Dextrose (Dextrose 50%) 25 ml Q30M PRN IV Hypoglycemia 12/31/19 22:45 03/12/20 07:14 Dextrose (Dextrose 50%) 50 ml Q30M PRN IV Hypoglycemia 12/31/19 22:45 03/12/20 07:14 Divalproex Sodium (Depakote) 250 mg EVERY 12 HOURS ORAL 01/01/20 09:00 01/12/20 20:59 01/02/20 10:17 Docusate Sodium (Colace) 100 mg TWICE A DAY NG 01/01/20 09:00 01/31/20 08:59 01/02/20 10:18 Insulin Aspart (NovoLOG) EVERY 6 HOURS SUBQ 01/01/20 00:00 03/12/20 11:59 01/02/20 05:07 Lactulose (Cephulac) 20 gm BID NG 01/01/20 18:00 01/24/20 08:59 01/02/20 10:22 Levothyroxine Sodium (Synthroid) 125 mcg DAILY NG 01/02/20 09:00 02/01/20 08:59 01/02/20 10:18 Methylprednisolone Sodium Succinate (Solu-MEDROL) 20 mg EVERY 6 HOURS IVP 01/01/20 00:00 03/18/20 11:59 01/02/20 05:11 Nitroglycerin (Ntg) 0.4 mg Q5MIN X 3 DOSES PRN SL CHEST PAIN 12/31/19 22:30 01/10/20 21:44 Pantoprazole (Protonix) 40 mg EVERY 12 HOURS IVP 01/01/20 09:00 01/13/20 08:59 01/02/20 10:19 Polyethylene Glycol (Miralax) 17 gm BEDTIME NG 01/01/20 21:00 01/18/20 20:59 01/01/20 21:30 Polyethylene Glycol (Miralax) 17 gm DAILYPRN PRN NG Constipation 01/01/20 19:00 01/23/20 18:59 Potassium Phosphate 20 mm/ Sodium Chloride 281.6667 ml @ 46.944 m... ONCE ONCE IV 01/02/20 12:00 01/02/20 17:59 Quetiapine Fumarate (SEROqueL) 50 mg Q12HR NG 01/01/20 21:00 02/05/20 20:59 01/02/20 10:19 Jabari Adams MD Jan 02, 2020 12:36
[2020-01-02] MEDS ORDERED: Varibar Honey 250ml MC PRN (13:00)
[2020-01-02] MEDS ORDERED: Varibar Nectar 240ml MC PRN (13:00)
[2020-01-02] MEDS ORDERED: Varibar Pudding 230ml MC PRN (13:00)
--- NOTE | 2020-01-02 13:00 | NUR ---
NURSE NOTES: Pt with discharge orders from Dr Myers and Dr Perera to [facility].
[2020-01-02] MEDS ORDERED: SEROQUEL25 MG NG (13:28)
[2020-01-02] MEDS ORDERED: PREDNISONE5 M3 PO (13:28)
[2020-01-02] MEDS ORDERED: DEPAKOTE250 MG ORAL (13:28)
[2020-01-02] MEDS ORDERED: LACTULOSE20 GM/301 NG (13:28)
--- NOTE | 2020-01-02 13:35 | NUR ---
ST NOTE LIGHT TECHNICIAN made arrangements for MBSS to be completed, spoke with cd technician and RN regarding prep for Patient. However, prior to Patient being transferred down to radiology, MD cancelled MBSS orders due to plans for discharge Patient to nursing facility. Per NA, during lunchtime meal Patient was coughing while self-feeding, coughs are wet; Patient noted with fast PO intake rate and large bites of food. Also, Patient noted to drink liquids via sequential sips. NA then assisted Patient 1:to:1 while implementing aspiration precautions/safe swallow strategies resulting in Patient with slightly reduced amount of coughing with PO, albeit, still demonstrating overt s/s of aspiration. At this time, Patient continues to benefit from MBSS to r/o silent aspiration and further evaluate swallow physiology and swallow efficiency an an inpatient or outpatient; Also, to trial compensatory strategies/postures to reduced aspiration risk. Patient would benefit from LIGHT TECHNICIAN at next level of care to re-evaluate and treat Patient as indicated targeting dysphagia, dysphonia, and cognitive communicative re-training due to Patient with ongoing confusion. LIGHT TECHNICIAN spoke with PT Rodolfo who endorses Patient states being aware of confusion. LIGHT TECHNICIAN plans to continue to f/u with Patient while in house for dysphagia tx and management. Patient presenting as a high risk for aspiration on current diet texture of Moist Puree with [place] thick liquids and requires 1 to 1 careful hand feeding at a slow rate and in small bites while alternating sips of liquids and solid foods. MD to consider repeat CXR given Patient's ongoing overt s/s of aspiration with PO intake of current diet and concern for aspiration. Will continue to follow. LIGHT TECHNICIAN [phone]
--- NOTE | 2020-01-02 14:41 | NUR ---
CASE MANAGEMENT: DCP PATIENT REFERRED BACK TO [facility] [phone] PH / FAX [phone] PER EMMIE NO BEDS AVAILABLE AT THIS TIME; WILL POSSIBLY HAVE A BED AVAILABLE NEXT WEEK ON TUESDAY INQUIRY FAXED TO: VIJAY WILLSON [phone] [facility] [phone] [facility] [phone] Addendum: 01/02/20 at 1644 by JAMES CHUNG CM INQUIRY FAXED TO: VIJAY WILLSON [phone] PER [place] / NO FEMALE BEDS AVAILABLE [facility] [phone] [facility] [phone] PER [place] / NO FEMALE BEDS AVAILABLE REFERRAL SENT TO: VIJAY STOLL / [phone] FAX [place] / [phone] [place] / [phone] [facility] / [phone] [facility] WILL FOLLOW UP
--- NOTE | 2020-01-02 15:00 | NUR ---
CASE MANAGEMENT: REVIEW SI: COPD EXACERBATION . PNA T 97.0 HR 75 RR 19 BP 116/47 SAT 97% NC/2L WBC 12.6 H/H 10.3/31.9 NA 146 GLUCOSE 169 IS: K PHOS IV X1 SOLU MEDROL IV Q6HR SYNTHROID GT Q12HR PROTONIX IV Q12HR STEP DOWN UNIT STATUS DCP: PATIENT IS FROM [facility].
[2020-01-02 16:00] VITALS: BP 116/43
--- NOTE | 2020-01-02 18:00 | NUR ---
NURSE NOTES: Accounts Payable Coordinator Amie said that [employer] has not returned her call so will wait for their call.
--- NOTE | 2020-01-02 18:30 | NUR ---
NURSE NOTES: Ace cath discontinued and removed without trauma.
--- NOTE | 2020-01-02 18:32 | Pulmonology Progress Note ---
Subjective ROS Limited/Unobtainable: Yes Interval Events: Extubated 12/21/19; did well on VENTIMASK; now on nasal o2 Constitutional: Denies: fever HEENT: Repors: no symptoms Respiratory: Reports: no symptoms Cardiovascular: Reports: no symptoms Gastrointestinal/Abdominal: Reports: no symptoms Genitourinary: Reports: no symptoms Allergies: Coded Allergies: LITHIUM (Verified Allergy, Unknown, 02/07/19) All Systems: reviewed and negative except above Objective Last 24 Hour Vital Signs Date Time Temp Pulse Resp B/P (MAP) Pulse Ox O2 Delivery O2 Flow Rate FiO2 01/02/20 16:00 74 01/02/20 16:00 Nasal Cannula 2.0 01/02/20 12:00 Nasal Cannula 2.0 01/02/20 11:36 84 01/02/20 08:00 97.0 75 19 116/47 (70) 97 01/02/20 08:00 Nasal Cannula 2.0 01/02/20 07:45 79 01/02/20 04:00 97.4 82 22 116/47 (70) 100 01/02/20 04:00 2.0 01/02/20 04:00 Nasal Cannula 2.0 01/02/20 03:31 77 01/02/20 00:00 98.0 79 22 123/59 (80) 100 01/02/20 00:00 Nasal Cannula 2.0 01/02/20 00:00 2.0 01/01/20 23:28 83 01/01/20 20:00 Nasal Cannula 2.0 01/01/20 20:00 98.2 86 22 146/42 (76) 100 01/01/20 20:00 2.0 01/01/20 19:40 89 01/01/20 19:32 97 Nasal Cannula 2.0 28 Intake and Output 01/01/20 01/02/20 19:00 07:00 Intake Total 160 ml Output Total 610 ml 1100 ml Balance -610 ml -940 ml Intake Oral 160 ml Output Urine Total 600 ml 1000 ml Stool Total 10 ml 100 ml General Appearance: no acute distress Respiratory: chest wall non-tender, lungs clear Cardiovascular: normal peripheral pulses, normal rate Abdomen: normal bowel sounds Laboratory Tests 01/01/20 23:02: POC Whole Blood Glucose 147H 01/02/20 04:20: White Blood Count 11.2H, Red Blood Count 3.41L, Hemoglobin 11.1L, Hematocrit 34.4L, Mean Corpuscular Volume 101H, Mean Corpuscular Hemoglobin 32.6H, Mean Corpuscular Hemoglobin Concent 32.3, Red Cell Distribution Width 12.8, Platelet Count 60L, Mean Platelet Volume 8.9, Neutrophils (%) (Auto) , Lymphocytes (%) ( Auto) , Monocytes (%) (Auto) , Eosinophils (%) (Auto) , Basophils (%) (Auto) , Differential Total Cells Counted 100, Neutrophils % (Manual) 88H, Lymphocytes % (Manual) 9L, Monocytes % (Manual) 3, Eosinophils % (Manual) 0, Basophils % ( Manual) 0, Band Neutrophils 0, Platelet Estimate Adequate, Platelet Morphology Normal, Clumped Platelets 3+, Hypochromasia 1+, Anisocytosis 1+, Sodium Level 146H, Potassium Level 4.3, Chloride Level 107, Carbon Dioxide Level 34H, Anion Gap 5, Blood Urea Nitrogen 32H, Creatinine 0.7, Estimat Glomerular Filtration Rate > 60, Glucose Level 169H, Calcium Level 8.7, Phosphorus Level 2.2L, Magnesium Level 2.1, Total Bilirubin 0.7, Aspartate Amino Transf (AST/SGOT) 16, Alanine Aminotransferase (ALT/SGPT) 27, Alkaline Phosphatase 40L, Total Protein 6.6, Albumin 2.8L, Globulin 3.8, Albumin/Globulin Ratio 0.7L 01/02/20 05:04: POC Whole Blood Glucose 153H 01/02/20 08:30: White Blood Count 12.6H, Red Blood Count 3.13L, Hemoglobin 10.3L, Hematocrit 31.9L, Mean Corpuscular Volume 102H, Mean Corpuscular Hemoglobin 33.0H, Mean Corpuscular Hemoglobin Concent 32.4, Red Cell Distribution Width 13.6, Platelet Count 241#, Mean Platelet Volume 7.3, Neutrophils (%) (Auto) , Lymphocytes (%) ( Auto) , Monocytes (%) (Auto) , Eosinophils (%) (Auto) , Basophils (%) (Auto) , Differential Total Cells Counted 100, Neutrophils % (Manual) 93H, Lymphocytes % (Manual) 5L, Monocytes % (Manual) 2, Eosinophils % (Manual) 0, Basophils % ( Manual) 0, Band Neutrophils 0, Platelet Estimate Adequate, Platelet Morphology Normal, Hypochromasia 1+, Anisocytosis 1+, Macrocytosis 1+ 01/02/20 12:37: POC Whole Blood Glucose [Pending] 01/02/20 17:47: POC Whole Blood Glucose 96 Current Medications Medications (Trade) Dose Ordered Sig/Angie Route PRN Reason Start Time Stop Time Status Last Admin Dose Admin Acetaminophen (Tylenol) 650 mg Q6H PRN GT Mild Pain (Pain Scale 1-3) 01/01/20 14:00 01/31/20 13:59 Acetaminophen (Tylenol) 1,000 mg Q6H PRN GT Moderate Pain (Pain Scale 4-6) 01/01/20 14:00 01/31/20 13:59 Amantadine HCl (Symmetrel) 100 mg TWICE A DAY ORAL 01/01/20 09:00 01/11/20 08:59 01/02/20 17:43 Aspirin (ASA) 325 mg DAILY NG 01/02/20 09:00 02/16/20 08:59 01/02/20 10:17 Atorvastatin Calcium (Lipitor) 10 mg BEDTIME NG 01/01/20 21:00 03/11/20 20:59 01/01/20 21:31 Barium Sulfate (Varibar Honey) 250 ml NOW PRN MC RAD 01/02/20 13:00 01/05/20 12:46 Barium Sulfate (Varibar [place]) 240 ml NOW PRN MC RAD 01/02/20 13:00 01/05/20 12:46 Barium Sulfate (Varibar Pudding) 230 ml NOW PRN MC RAD 01/02/20 13:00 01/05/20 12:46 Calcium Carbonate (Os-Octavio) 500 mg THREE TIMES A DAY NG 01/01/20 18:00 03/20/20 17:59 01/02/20 17:44 Clonidine HCl (Catapres Tab) 0.1 mg Q6H PRN NG For high BP over 160 systolic 01/01/20 14:15 03/11/20 12:30 Dextrose (Dextrose 50%) 25 ml Q30M PRN IV Hypoglycemia 12/31/19 22:45 03/12/20 07:14 Dextrose (Dextrose 50%) 50 ml Q30M PRN IV Hypoglycemia 12/31/19 22:45 03/12/20 07:14 Divalproex Sodium (Depakote) 250 mg EVERY 12 HOURS ORAL 01/01/20 09:00 01/12/20 20:59 01/02/20 10:17 Docusate Sodium (Colace) 100 mg TWICE A DAY NG 01/01/20 09:00 01/31/20 08:59 01/02/20 17:43 Insulin Aspart (NovoLOG) EVERY 6 HOURS SUBQ 01/01/20 00:00 03/12/20 11:59 01/02/20 12:00 Lactulose (Cephulac) 20 gm BID NG 01/01/20 18:00 01/24/20 08:59 01/02/20 17:48 Levothyroxine Sodium (Synthroid) 125 mcg DAILY NG 01/02/20 09:00 02/01/20 08:59 01/02/20 10:18 Nitroglycerin (Ntg) 0.4 mg Q5MIN X 3 DOSES PRN SL CHEST PAIN 12/31/19 22:30 01/10/20 21:44 Pantoprazole (Protonix) 40 mg EVERY 12 HOURS IVP 01/01/20 09:00 01/13/20 08:59 01/02/20 10:19 Polyethylene Glycol (Miralax) 17 gm BEDTIME NG 01/01/20 21:00 01/18/20 20:59 01/01/20 21:30 Polyethylene Glycol (Miralax) 17 gm DAILYPRN PRN NG Constipation 01/01/20 19:00 01/23/20 18:59 Quetiapine Fumarate (SEROqueL) 50 mg Q12HR NG 01/01/20 21:00 02/05/20 20:59 01/02/20 10:19 Assessment/Plan Assessment/Plan IMPRESSION: 1. Respiratory failure. Improved; remains intermittently on BiPPA vs Ventimask; now on nasal o2 2. Has healthcare-associated pneumonia; is negative for COVID-19. 3. Psych disorder. 4. Obesity. 5. Hypertension. 6. Hypernatremia DISCUSSION: Continue broad spectrum antibiotics. Has negative COVID-19 swab. On Seroquel; on decreased dose Off steroids Off Lasix and Diamox Has diuresed well DC to snf Emerita Fan Omar Syed MD Jan 02, 2020 18:32
--- NOTE | 2020-01-02 19:20 | NUR ---
HAND-OFF: Report given to Kilo Junior RN.
--- NOTE | 2020-01-02 19:21 | NUR ---
NURSE NOTES: Received patient from DARREL Lugo. Patient is aaox2, vss, on cardiac nurse specialist, and no acute distress. Patient is cooperative, clean and on a P200 mattress. Patient is on 2L NC. IV site is on right hand 22g patent and with no signs of infection. Patient refused SCDs. Redness on sacral and buttocks. Rectal tube is draining to gravity. Bed is at its lowest position; call light in reach and x3 bed rails are up. Will continue to monitor.
[2020-01-02 20:00] VITALS: BP 116/48
[2020-01-02] MEDS: Miralax 17gm pkt NG SCH (20:28)
--- NOTE | 2020-01-02 22:04 | General Progress Note ---
Assessment/Plan Problem List: (1) Dyspnea ICD Codes: R06.00 - Dyspnea, unspecified SNOMED: 609267160 (2) Hypothyroidism ICD Codes: E03.9 - Hypothyroidism, unspecified SNOMED: 17184250 (3) Obese ICD Codes: E66.9 - Obesity, unspecified SNOMED: 421856770, 715665287 (4) Psychosis ICD Codes: F29 - Unspecified psychosis not due to a substance or known physiological condition SNOMED: 90009464 (5) Respiratory failure ICD Codes: J96.90 - Respiratory failure, unspecified, unspecified whether with hypoxia or hypercapnia SNOMED: 494370535 (6) Respiratory distress ICD Codes: R06.03 - Acute respiratory distress SNOMED: 171481258 (7) Dyspnea ICD Codes: R06.00 - Dyspnea, unspecified SNOMED: 395821973 (8) Pneumonia ICD Codes: J18.9 - Pneumonia, unspecified organism SNOMED: 330486482 (9) Acute and chronic respiratory failure ICD Codes: J96.20 - Acute and chronic respiratory failure, unspecified whether with hypoxia or hypercapnia SNOMED: 25635732 (10) Diabetes mellitus type 2 in nonobese ICD Codes: E11.9 - Type 2 diabetes mellitus without complications SNOMED: 388213531 (11) CHF (congestive heart failure) ICD Codes: I50.9 - Heart failure, unspecified SNOMED: 18941765 Qualifiers: Qualified Codes: I50.9 - Heart failure, unspecified (12) Hypoxia ICD Codes: R09.02 - Hypoxemia SNOMED: 799470641 (13) Elevated d-dimer ICD Codes: R79.89 - Other specified abnormal findings of blood chemistry SNOMED: 333168583 (14) Schizophrenia ICD Codes: F20.9 - Schizophrenia, unspecified SNOMED: 25750554 (15) Parkinson disease ICD Codes: G20 - Parkinson's disease SNOMED: 16907543 Status: progressing, unchanged Assessment/Plan: dc back to snf reviewed chart and labs obesity covid negative metabolic contraction e Subjective ROS Limited/Unobtainable: Yes Allergies: Coded Allergies: LITHIUM (Verified Allergy, Unknown, 02/07/19) Objective Last 24 Hour Vital Signs Date Time Temp Pulse Resp B/P (MAP) Pulse Ox O2 Delivery O2 Flow Rate FiO2 01/02/20 20:19 97 Nasal Cannula 2.0 28 01/02/20 20:00 Nasal Cannula 2.0 01/02/20 20:00 97.0 78 19 116/48 (70) 100 01/02/20 20:00 75 01/02/20 16:00 74 01/02/20 16:00 Nasal Cannula 2.0 01/02/20 16:00 96.4 20 116/43 (67) 100 01/02/20 12:00 Nasal Cannula 2.0 01/02/20 12:00 97.3 83 22 119/50 (73) 99 01/02/20 11:36 84 01/02/20 08:00 97.0 75 19 116/47 (70) 97 01/02/20 08:00 Nasal Cannula 2.0 01/02/20 07:45 79 01/02/20 04:00 97.4 82 22 116/47 (70) 100 01/02/20 04:00 2.0 01/02/20 04:00 Nasal Cannula 2.0 01/02/20 03:31 77 01/02/20 00:00 98.0 79 22 123/59 (80) 100 01/02/20 00:00 Nasal Cannula 2.0 01/02/20 00:00 2.0 01/01/20 23:28 83 Intake and Output 01/01/20 01/02/20 19:00 07:00 Intake Total 160 ml Output Total 610 ml 1100 ml Balance -610 ml -940 ml Intake Oral 160 ml Output Urine Total 600 ml 1000 ml Stool Total 10 ml 100 ml Laboratory Tests 01/01/20 23:02: POC Whole Blood Glucose 147H 01/02/20 04:20: White Blood Count 11.2H, Red Blood Count 3.41L, Hemoglobin 11.1L, Hematocrit 34.4L, Mean Corpuscular Volume 101H, Mean Corpuscular Hemoglobin 32.6H, Mean Corpuscular Hemoglobin Concent 32.3, Red Cell Distribution Width 12.8, Platelet Count 60L, Mean Platelet Volume 8.9, Neutrophils (%) (Auto) , Lymphocytes (%) ( Auto) , Monocytes (%) (Auto) , Eosinophils (%) (Auto) , Basophils (%) (Auto) , Differential Total Cells Counted 100, Neutrophils % (Manual) 88H, Lymphocytes % (Manual) 9L, Monocytes % (Manual) 3, Eosinophils % (Manual) 0, Basophils % ( Manual) 0, Band Neutrophils 0, Platelet Estimate Adequate, Platelet Morphology Normal, Clumped Platelets 3+, Hypochromasia 1+, Anisocytosis 1+, Sodium Level 146H, Potassium Level 4.3, Chloride Level 107, Carbon Dioxide Level 34H, Anion Gap 5, Blood Urea Nitrogen 32H, Creatinine 0.7, Estimat Glomerular Filtration Rate > 60, Glucose Level 169H, Calcium Level 8.7, Phosphorus Level 2.2L, Magnesium Level 2.1, Total Bilirubin 0.7, Aspartate Amino Transf (AST/SGOT) 16, Alanine Aminotransferase (ALT/SGPT) 27, Alkaline Phosphatase 40L, Total Protein 6.6, Albumin 2.8L, Globulin 3.8, Albumin/Globulin Ratio 0.7L 01/02/20 05:04: POC Whole Blood Glucose 153H 01/02/20 08:30: White Blood Count 12.6H, Red Blood Count 3.13L, Hemoglobin 10.3L, Hematocrit 31.9L, Mean Corpuscular Volume 102H, Mean Corpuscular Hemoglobin 33.0H, Mean Corpuscular Hemoglobin Concent 32.4, Red Cell Distribution Width 13.6, Platelet Count 241#, Mean Platelet Volume 7.3, Neutrophils (%) (Auto) , Lymphocytes (%) ( Auto) , Monocytes (%) (Auto) , Eosinophils (%) (Auto) , Basophils (%) (Auto) , Differential Total Cells Counted 100, Neutrophils % (Manual) 93H, Lymphocytes % (Manual) 5L, Monocytes % (Manual) 2, Eosinophils % (Manual) 0, Basophils % ( Manual) 0, Band Neutrophils 0, Platelet Estimate Adequate, Platelet Morphology Normal, Hypochromasia 1+, Anisocytosis 1+, Macrocytosis 1+ 01/02/20 12:37: POC Whole Blood Glucose [Pending] 01/02/20 17:47: POC Whole Blood Glucose 96 Height (Feet): 5 Height (Inches): 7.00 Weight (Pounds): 222 Dani Perera MD Jan 02, 2020 22:03
--- NOTE | 2020-01-03 | NUR ---
NURSE NOTES: Patient is in bed and constantly moving down the mattress. She prefers to lay on her right side even when repositioned.
--- NOTE | 2020-01-03 04:10 | NUR ---
NURSE NOTES: Patient refused lab draw and bed bath.
[2020-01-03] MEDS: NovoLOG Insulin Flexpen SUBQ SCH ×5 (05:09→23:41)
--- NOTE | 2020-01-03 05:59 | NUR ---
NURSE NOTES: Patient tolerated bed bath with no BM. Will continue to monitor.
--- NOTE | 2020-01-03 06:20 | Hematology/Onc Progress Note ---
Assessment/Plan Assessment/Plan # Lower extremity edema in setting of elevated ddimer --> lower ext duplex ordered to r/o dvt-->neg for dvt --> lovenox sq has been started --> low threshold for v/q or cta r/o pe # Anemia of chronic disease --> hgb 11-->10.-->9->11.9-->10.8->7.8->11->10.8->10.2-->9.6->9.5->10.8-->12--> 10->10.3 --> no e/o hemolysis --> no bleeding reported --> smear reviewed --> no go bleeding # Leukocytosis r/o infection, likely steriods related --> wbc trend 10==>12-->14->15-->12 --> steriods off --> abx off # Respiratory failure with copd exacerbation likely --> pulm toilet --> breathing rx --> steroids prn basis --> pulm eval ---> ABX per is on zosyn->now off # 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 ( combination of moderate aortic regurgitation and severe mitral regurgitation) --> diuresis as per cards --> lasix last time # Severe ascending aortic dilatation --> per Dr Keke campbell # Hypertension # Parkinson disease # Hyperlipidemia # Hypothyroidism # Dementia # Obesity # Schizophrenia --> as per [facility] [place] --> restraints # Dvt ppx lovenox sq/scd's Appreciate wallpaper consultant care and alexei Rn Subjective Constitutional: Denies: no symptoms, chills, fever, malaise, weakness, other HEENT: Denies: no symptoms, eye pain, blurred vision, tearing, double vision, ear pain, ear discharge, nose pain, nose congestion, throat pain, throat swelling, mouth pain, mouth swelling, other Cardiovascular: Denies: no symptoms, chest pain, edema, irregular heart rate, lightheadedness, palpitations, syncope, other Respiratory: Denies: no symptoms, cough, shortness of breath, SOB with excertion, SOB at rest, sputum, wheezing, other Gastrointestinal/Abdominal: Denies: no symptoms, abdomen distended, abdominal pain, black stools, tarry stools, blood in stool, constipated, diarrhea, difficulty swallowing, nausea, poor appetite, poor fluid intake, rectal bleeding , vomiting, other Genitourinary: Denies: no symptoms, burning, discharge, frequency, flank pain, hematuria, incontinence, pain, urgency, other Endocrine: Denies: no symptoms, excessive sweating, flushing, intolerance to cold, intolerance to heat, increased hunger, increased thirst, increased urine, unexplained weight gain, unexplained weight loss, other Hematologic/Lymphatic: Denies: no symptoms, anemia, easy bleeding, easy bruising, adenopathy, other Allergies: Coded Allergies: LITHIUM (Verified Allergy, Unknown, 02/07/19) Subjective 12/12 labs are reviewed, intubated, with og, somewhat responsive, alexei rn 12/13 labs noted, hgb 7.8, tfs ok to start per gi 12/15 icu, restraints, no acute events, hep panel negative, sedated 12/16 no bleeding, in the icu, on abx, in restarints, sleepy, vent 12/17 is on vent, also is on abx, awake, with ogt 12/18 ng placed, hgb 9.6, no bleeding, no night sweats 12/19 labs reviewed, sedated, on vent, nob leeding, meds reviewed 12/20 remains on vent, audra bleeding, meds reviewed, no night sweats 12/22 hgb 9.5, to get zosyn x 1 more day, no night sweats meds reviewed 12/23 labs noted, no bleeding, with fm, no bleeding or night sweats 12/24 no bleeding, labs noted, no night sweats hgb 10, no hemolysis 12/25 remains fatigued, fm, labs are still pending from am 12/26 restraints, v mask, cxr reviewed 12/27 labs reviewed, no bleeding, hgb 10.8, no hemolysis on FM 12/29 remains disoriented on bipap and fm as needed, hgb better 12/30 wbc 15k, no bleeding, alexei rn, no night sweats off abx 12/31 wbc remains elevated, arousable, no bleeding, on fm 01/01 meds noted, labs reviewed, no bleeding on exam 01/02 refusing labs this am, no bleeding, meds noted, no hemolysis Objective Objective Current Medications Medications (Trade) Dose Ordered Sig/Angie Route PRN Reason Start Time Stop Time Status Last Admin Dose Admin Acetaminophen (Tylenol) 650 mg Q6H PRN GT Mild Pain (Pain Scale 1-3) 01/01/20 14:00 01/31/20 13:59 Acetaminophen (Tylenol) 1,000 mg Q6H PRN GT Moderate Pain (Pain Scale 4-6) 01/01/20 14:00 01/31/20 13:59 Amantadine HCl (Symmetrel) 100 mg TWICE A DAY ORAL 01/01/20 09:00 01/11/20 08:59 01/02/20 17:43 Aspirin (ASA) 325 mg DAILY NG 01/02/20 09:00 02/16/20 08:59 01/02/20 10:17 Atorvastatin Calcium (Lipitor) 10 mg BEDTIME NG 01/01/20 21:00 03/11/20 20:59 01/02/20 20:28 Barium Sulfate (Varibar Honey) 250 ml NOW PRN MC RAD 01/02/20 13:00 01/05/20 12:46 Barium Sulfate (Varibar [place]) 240 ml NOW PRN MC RAD 01/02/20 13:00 01/05/20 12:46 Barium Sulfate (Varibar Pudding) 230 ml NOW PRN MC RAD 01/02/20 13:00 01/05/20 12:46 Calcium Carbonate (Os-Octavio) 500 mg THREE TIMES A DAY NG 01/01/20 18:00 03/20/20 17:59 01/02/20 17:44 Clonidine HCl (Catapres Tab) 0.1 mg Q6H PRN NG For high BP over 160 systolic 01/01/20 14:15 03/11/20 12:30 Dextrose (Dextrose 50%) 25 ml Q30M PRN IV Hypoglycemia 12/31/19 22:45 03/12/20 07:14 Dextrose (Dextrose 50%) 50 ml Q30M PRN IV Hypoglycemia 12/31/19 22:45 03/12/20 07:14 Divalproex Sodium (Depakote) 250 mg EVERY 12 HOURS ORAL 01/01/20 09:00 01/12/20 20:59 01/02/20 20:28 Docusate Sodium (Colace) 100 mg TWICE A DAY NG 01/01/20 09:00 01/31/20 08:59 01/02/20 17:43 Insulin Aspart (NovoLOG) EVERY 6 HOURS SUBQ 01/01/20 00:00 03/12/20 11:59 01/02/20 12:00 Lactulose (Cephulac) 20 gm BID NG 01/01/20 18:00 01/24/20 08:59 01/02/20 17:48 Levothyroxine Sodium (Synthroid) 125 mcg DAILY NG 01/02/20 09:00 02/01/20 08:59 01/02/20 10:18 Nitroglycerin (Ntg) 0.4 mg Q5MIN X 3 DOSES PRN SL CHEST PAIN 12/31/19 22:30 01/10/20 21:44 Pantoprazole (Protonix) 40 mg EVERY 12 HOURS IVP 01/01/20 09:00 01/13/20 08:59 01/02/20 20:28 Polyethylene Glycol (Miralax) 17 gm BEDTIME NG 01/01/20 21:00 01/18/20 20:59 01/02/20 20:28 Polyethylene Glycol (Miralax) 17 gm DAILYPRN PRN NG Constipation 01/01/20 19:00 01/23/20 18:59 Quetiapine Fumarate (SEROqueL) 50 mg Q12HR NG 01/01/20 21:00 02/05/20 20:59 01/02/20 20:29 Last 24 Hour Vital Signs Date Time Temp Pulse Resp B/P (MAP) Pulse Ox O2 Delivery O2 Flow Rate FiO2 01/03/20 04:00 Room Air 01/03/20 03:37 78 01/03/20 00:00 68 01/03/20 00:00 Nasal Cannula 2.0 01/02/20 20:19 97 Nasal Cannula 2.0 28 01/02/20 20:00 Nasal Cannula 2.0 01/02/20 20:00 97.0 78 19 116/48 (70) 100 01/02/20 20:00 75 01/02/20 16:00 74 01/02/20 16:00 Nasal Cannula 2.0 01/02/20 16:00 96.4 20 116/43 (67) 100 01/02/20 12:00 Nasal Cannula 2.0 01/02/20 12:00 97.3 83 22 119/50 (73) 99 01/02/20 11:36 84 01/02/20 08:00 97.0 75 19 116/47 (70) 97 01/02/20 08:00 Nasal Cannula 2.0 01/02/20 07:45 79 01/02/20 04:00 97.4 82 22 116/47 (70) 100 01/02/20 04:00 2.0 01/02/20 04:00 Nasal Cannula 2.0 01/02/20 03:31 77 01/02/20 00:00 98.0 79 22 123/59 (80) 100 01/02/20 00:00 Nasal Cannula 2.0 01/02/20 00:00 2.0 01/01/20 23:28 83 01/01/20 20:00 Nasal Cannula 2.0 01/01/20 20:00 98.2 86 22 146/42 (76) 100 01/01/20 20:00 2.0 01/01/20 19:40 89 01/01/20 19:32 97 Nasal Cannula 2.0 28 01/01/20 16:52 68 01/01/20 16:00 2.0 01/01/20 16:00 Nasal Cannula 2.0 01/01/20 12:00 2.0 01/01/20 12:00 Nasal Cannula 2.0 01/01/20 12:00 73 01/01/20 09:17 74 01/01/20 08:00 97.2 72 21 134/47 (76) 100 01/01/20 08:00 Nasal Cannula 2.0 01/01/20 08:00 2.0 01/01/20 07:12 100 Nasal Cannula 2.0 28 Intake and Output 01/02/20 01/03/20 19:00 07:00 Intake Total 720 ml 100 ml Output Total 850 ml 25 ml Balance -130 ml 75 ml Intake Oral 720 ml 100 ml Output Urine Total 750 ml Stool Total 100 ml 25 ml # Bowel Movements 1 Labs Test 01/01/20 12:15 01/01/20 23:02 01/02/20 04:20 01/02/20 05:04 POC Whole Blood Glucose 150 MG/DL (74-106) 147 MG/DL (74-106) 153 MG/DL (74-106) White Blood Count 11.2 K/UL (4.8-10.8) Red Blood Count 3.41 M/UL (4.20-5.40) Hemoglobin 11.1 G/DL (12.0-16.0) Hematocrit 34.4 % (37.0-47.0) Mean Corpuscular Volume 101 FL (80-99) Mean Corpuscular Hemoglobin 32.6 PG (27.0-31.0) Mean Corpuscular Hemoglobin Concent 32.3 G/DL (32.0-36.0) Red Cell Distribution Width 12.8 % (11.6-14.8) Platelet Count 60 K/UL (150-450) Mean Platelet Volume 8.9 FL (6.5-10.1) Neutrophils (%) (Auto) % (45.0-75.0) Lymphocytes (%) (Auto) % (20.0-45.0) Monocytes (%) (Auto) % (1.0-10.0) Eosinophils (%) (Auto) % (0.0-3.0) Basophils (%) (Auto) % (0.0-2.0) Differential Total Cells Counted 100 Neutrophils % (Manual) 88 % (45-75) Lymphocytes % (Manual) 9 % (20-45) Monocytes % (Manual) 3 % (1-10) Eosinophils % (Manual) 0 % (0-3) Basophils % (Manual) 0 % (0-2) Band Neutrophils 0 % (0-8) Platelet Estimate Adequate Platelet Morphology Normal Clumped Platelets 3+ Hypochromasia 1+ Anisocytosis 1+ Sodium Level 146 MMOL/L (136-145) Potassium Level 4.3 MMOL/L (3.5-5.1) Chloride Level 107 MMOL/L (98-107) Carbon Dioxide Level 34 MMOL/L (21-32) Anion Gap 5 mmol/L (5-15) Blood Urea Nitrogen 32 mg/dL (7-18) Creatinine 0.7 MG/DL (0.55-1.30) Estimat Glomerular Filtration Rate > 60 mL/min (>60) Glucose Level 169 MG/DL (74-106) Calcium Level 8.7 MG/DL (8.5-10.1) Phosphorus Level 2.2 MG/DL (2.5-4.9) Magnesium Level 2.1 MG/DL (1.8-2.4) Total Bilirubin 0.7 MG/DL (0.2-1.0) Aspartate Amino Transf (AST/SGOT) 16 U/L (15-37) Alanine Aminotransferase (ALT/SGPT) 27 U/L (12-78) Alkaline Phosphatase 40 U/L (46-116) Total Protein 6.6 G/DL (6.4-8.2) Albumin 2.8 G/DL (3.4-5.0) Globulin 3.8 g/dL Albumin/Globulin Ratio 0.7 (1.0-2.7) Test 01/02/20 08:30 01/02/20 12:37 01/02/20 17:47 01/02/20 23:39 White Blood Count 12.6 K/UL (4.8-10.8) Red Blood Count 3.13 M/UL (4.20-5.40) Hemoglobin 10.3 G/DL (12.0-16.0) Hematocrit 31.9 % (37.0-47.0) Mean Corpuscular Volume 102 FL (80-99) Mean Corpuscular Hemoglobin 33.0 PG (27.0-31.0) Mean Corpuscular Hemoglobin Concent 32.4 G/DL (32.0-36.0) Red Cell Distribution Width 13.6 % (11.6-14.8) Platelet Count 241 K/UL (150-450) Mean Platelet Volume 7.3 FL (6.5-10.1) Neutrophils (%) (Auto) % (45.0-75.0) Lymphocytes (%) (Auto) % (20.0-45.0) Monocytes (%) (Auto) % (1.0-10.0) Eosinophils (%) (Auto) % (0.0-3.0) Basophils (%) (Auto) % (0.0-2.0) Differential Total Cells Counted 100 Neutrophils % (Manual) 93 % (45-75) Lymphocytes % (Manual) 5 % (20-45) Monocytes % (Manual) 2 % (1-10) Eosinophils % (Manual) 0 % (0-3) Basophils % (Manual) 0 % (0-2) Band Neutrophils 0 % (0-8) Platelet Estimate Adequate Platelet Morphology Normal Hypochromasia 1+ Anisocytosis 1+ Macrocytosis 1+ POC Whole Blood Glucose 96 MG/DL (74-106) 122 MG/DL (74-106) Test 01/03/20 04:45 POC Whole Blood Glucose 114 MG/DL (74-106) Height (Feet): 5 Height (Inches): 7.00 Weight (Pounds): 222 Objective Vitals: reviewed General: NAD HEENT: nc, at ++ngt, facemask+ Neck: supple Chest: decreased breath sounds bilaterally Cardiovascular: RRR, no s3, s4 Abdomen: soft, nontender, nd Extremities: 1-2 + edema, scd's Neuro: nonverbal : iman+ Frank Escobar MD Jan 03, 2020 06:20
--- NOTE | 2020-01-03 07:05 | General Progress Note ---
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 - Other specified diabetes mellitus without complications SNOMED: 571696040 (2) Parkinson disease ICD Codes: G20 - Parkinson's disease SNOMED: 39525168 (3) Schizophrenia ICD Codes: F20.9 - Schizophrenia, unspecified SNOMED: 45845207 (4) Hypertension ICD Codes: I10 - Essential (primary) hypertension SNOMED: 23098807 (5) Respiratory failure ICD Codes: J96.90 - Respiratory failure, unspecified, unspecified whether with hypoxia or hypercapnia SNOMED: 313168535 (6) Hypothyroidism ICD Codes: E03.9 - Hypothyroidism, unspecified SNOMED: 75353898 (7) Diabetes mellitus type 2 in nonobese ICD Codes: E11.9 - Type 2 diabetes mellitus without complications SNOMED: 274442500 Status: progressing, unchanged Assessment/Plan: continue Levothyroxine 125 mcg daily continue Novolog sliding scale every 6 hours hypoglycemia protocol in order Subjective ROS Limited/Unobtainable: Yes Allergies: Coded Allergies: LITHIUM (Verified Allergy, Unknown, 02/07/19) Subjective events noted glucose values are stable Item Value Date Time Bedside Blood Glucose 114 mg/dl 01/03/20 0600 Bedside Blood Glucose 122 mg/dl H 01/03/20 0000 Bedside Blood Glucose 96 mg/dl 01/02/20 1748 Bedside Blood Glucose 206 mg/dl H 01/02/20 1200 Bedside Blood Glucose 153 mg/dl H 01/02/20 0600 Bedside Blood Glucose 147 mg/dl H 01/02/20 0000 Objective Last 24 Hour Vital Signs Date Time Temp Pulse Resp B/P (MAP) Pulse Ox O2 Delivery O2 Flow Rate FiO2 01/03/20 04:00 Room Air 01/03/20 03:37 78 01/03/20 00:00 68 01/03/20 00:00 Nasal Cannula 2.0 01/02/20 20:19 97 Nasal Cannula 2.0 28 01/02/20 20:00 Nasal Cannula 2.0 01/02/20 20:00 97.0 78 19 116/48 (70) 100 01/02/20 20:00 75 01/02/20 16:00 74 01/02/20 16:00 Nasal Cannula 2.0 01/02/20 16:00 96.4 20 116/43 (67) 100 01/02/20 12:00 Nasal Cannula 2.0 01/02/20 12:00 97.3 83 22 119/50 (73) 99 01/02/20 11:36 84 01/02/20 08:00 97.0 75 19 116/47 (70) 97 01/02/20 08:00 Nasal Cannula 2.0 01/02/20 07:45 79 Intake and Output 01/02/20 01/03/20 19:00 07:00 Intake Total 720 ml 100 ml Output Total 850 ml 25 ml Balance -130 ml 75 ml Intake Oral 720 ml 100 ml Output Urine Total 750 ml Stool Total 100 ml 25 ml # Bowel Movements 1 Laboratory Tests 01/02/20 08:30: White Blood Count 12.6H, Red Blood Count 3.13L, Hemoglobin 10.3L, Hematocrit 31.9L, Mean Corpuscular Volume 102H, Mean Corpuscular Hemoglobin 33.0H, Mean Corpuscular Hemoglobin Concent 32.4, Red Cell Distribution Width 13.6, Platelet Count 241#, Mean Platelet Volume 7.3, Neutrophils (%) (Auto) , Lymphocytes (%) ( Auto) , Monocytes (%) (Auto) , Eosinophils (%) (Auto) , Basophils (%) (Auto) , Differential Total Cells Counted 100, Neutrophils % (Manual) 93H, Lymphocytes % (Manual) 5L, Monocytes % (Manual) 2, Eosinophils % (Manual) 0, Basophils % ( Manual) 0, Band Neutrophils 0, Platelet Estimate Adequate, Platelet Morphology Normal, Hypochromasia 1+, Anisocytosis 1+, Macrocytosis 1+ 01/02/20 12:37: POC Whole Blood Glucose [Pending] 01/02/20 17:47: POC Whole Blood Glucose 96 01/02/20 23:39: POC Whole Blood Glucose 122H 01/03/20 04:45: POC Whole Blood Glucose 114H Height (Feet): 5 Height (Inches): 7.00 Weight (Pounds): 184 General Appearance: no apparent distress Cardiovascular: normal rate Respiratory/Chest: decreased breath sounds Abdomen: normal bowel sounds Objective Current Medications Medications (Trade) Dose Ordered Sig/Angie Route PRN Reason Start Time Stop Time Status Last Admin Dose Admin Acetaminophen (Tylenol) 650 mg Q6H PRN GT Mild Pain (Pain Scale 1-3) 01/01/20 14:00 01/31/20 13:59 Acetaminophen (Tylenol) 1,000 mg Q6H PRN GT Moderate Pain (Pain Scale 4-6) 01/01/20 14:00 01/31/20 13:59 Amantadine HCl (Symmetrel) 100 mg TWICE A DAY ORAL 01/01/20 09:00 01/11/20 08:59 01/02/20 17:43 Aspirin (ASA) 325 mg DAILY NG 01/02/20 09:00 02/16/20 08:59 01/02/20 10:17 Atorvastatin Calcium (Lipitor) 10 mg BEDTIME NG 01/01/20 21:00 03/11/20 20:59 01/02/20 20:28 Barium Sulfate (Varibar Honey) 250 ml NOW PRN RAD 01/02/20 13:00 01/05/20 12:46 Barium Sulfate (Varibar Burket) 240 ml NOW PRN RAD 01/02/20 13:00 01/05/20 12:46 Barium Sulfate (Varibar Pudding) 230 ml NOW PRN RAD 01/02/20 13:00 01/05/20 12:46 Calcium Carbonate (Os-Octavio) 500 mg THREE TIMES A DAY NG 01/01/20 18:00 03/20/20 17:59 01/02/20 17:44 Clonidine HCl (Catapres Tab) 0.1 mg Q6H PRN NG For high BP over 160 systolic 01/01/20 14:15 03/11/20 12:30 Dextrose (Dextrose 50%) 25 ml Q30M PRN IV Hypoglycemia 12/31/19 22:45 03/12/20 07:14 Dextrose (Dextrose 50%) 50 ml Q30M PRN IV Hypoglycemia 12/31/19 22:45 03/12/20 07:14 Divalproex Sodium (Depakote) 250 mg EVERY 12 HOURS ORAL 01/01/20 09:00 01/12/20 20:59 01/02/20 20:28 Docusate Sodium (Colace) 100 mg TWICE A DAY NG 01/01/20 09:00 01/31/20 08:59 01/02/20 17:43 Insulin Aspart (NovoLOG) EVERY 6 HOURS SUBQ 01/01/20 00:00 03/12/20 11:59 01/02/20 12:00 Lactulose (Cephulac) 20 gm BID NG 01/01/20 18:00 01/24/20 08:59 01/02/20 17:48 Levothyroxine Sodium (Synthroid) 125 mcg DAILY NG 01/02/20 09:00 02/01/20 08:59 01/02/20 10:18 Nitroglycerin (Ntg) 0.4 mg Q5MIN X 3 DOSES PRN SL CHEST PAIN 12/31/19 22:30 01/10/20 21:44 Pantoprazole (Protonix) 40 mg EVERY 12 HOURS IVP 01/01/20 09:00 01/13/20 08:59 01/02/20 20:28 Polyethylene Glycol (Miralax) 17 gm BEDTIME NG 01/01/20 21:00 01/18/20 20:59 01/02/20 20:28 Polyethylene Glycol (Miralax) 17 gm DAILYPRN PRN NG Constipation 01/01/20 19:00 01/23/20 18:59 Quetiapine Fumarate (SEROqueL) 50 mg Q12HR NG 01/01/20 21:00 02/05/20 20:59 01/02/20 20:29 Jabari Adams MD Jan 03, 2020 07:05
--- NOTE | 2020-01-03 07:29 | NUR ---
HAND-OFF: Report given to DARREL Villalba.
--- NOTE | 2020-01-03 07:30 | NUR ---
NURSE NOTES: Received report from DARREL Boateng. Patient awake and alert x2. On O2 2L/min via NC. O2 sat 94% on the monitor. Rectal tube intact and draining with liquid brown color stool. Right hand 22G IV intact and patent with TKO. Kept dry, clean,comfortable and HOB>30. Call light placed in easy reach. Will continue plan of care.
[2020-01-03 08:00] VITALS: BP 137/55
[2020-01-03] MEDS: Levothyroxine 125mcg tab NG SCH (08:30)
[2020-01-03] MEDS: Os-Cal (Oyster Shell) 500mg tab NG SCH ×3 (08:30→17:40)
[2020-01-03] MEDS: Pantoprazole Inj IVP SCH ×2 (08:30→20:38)
[2020-01-03] MEDS: Lactulose 20gm/30ml UDC NG SCH (08:30)
[2020-01-03] MEDS: Amantadine 100mg cap ORAL SCH ×2 (08:30→17:40)
[2020-01-03] MEDS: Docusate 100mg/10ml Liq NG SCH (08:30)
--- NOTE | 2020-01-03 09:00 | NUR ---
NURSE NOTES: Bed bath given.
[2020-01-03 09:30] LABS: BASOPHILS % (AUTO) 0.4 % (0.0-2.0); EOSINOPHILS % (AUTO) 0.6 % (0.0-3.0); HEMOGLOBIN 11.1 G/DL (12.0-16.0); LYMPHOCYTES % (AUTO) 11.6 % (20.0-45.0); MEAN CORPUSCULAR VOLUME 101 FL (80-99); NEUTROPHILS % (AUTO) 80.5 % (45.0-75.0); PLATELET COUNT 238 K/UL (150-450); RED BLOOD COUNT 3.46 M/UL (4.20-5.40); RED CELL DISTRIBUTION WIDTH 12.7 % (11.6-14.8); WHITE BLOOD COUNT 13.9 K/UL (4.8-10.8)
[2020-01-03 09:43] LABS: ANION GAP 3 mmol/L (5-15); BLOOD UREA NITROGEN 29 mg/dL (7-18); CALCIUM 8.9 MG/DL (8.5-10.1); CARBON DIOXIDE 37 MMOL/L (21-32); CHLORIDE 108 MMOL/L (98-107); CREATININE 0.7 MG/DL (0.55-1.30); POTASSIUM 3.9 MMOL/L (3.5-5.1); SODIUM 148 MMOL/L (136-145)
--- NOTE | 2020-01-03 09:59 | NUR ---
Discharge planning: CM received a call from [facility] Patient not accepted to facility D/T no medical days
--- NOTE | 2020-01-03 10:04 | Infectious Diseases Prog Note ---
Assessment/Plan Assessment/Plan IMPRESSION: COPD exacerbation, Pneumonia, COID19 X 2: negative Acute respiratory failure with hypercapnia Dementia, Parkinson, Mitral valve regurgitation, Hypertension, Hypothyroidism. 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 RECOMMENDATION: Observe off antibiotic Taper steroids Agree with discharge to SNF Subjective ROS Limited/Unobtainable: Yes Constitutional: Denies: fever Gastrointestinal/Abdominal: Reports: diarrhea Neurologic: Reports: confusion, other - on restraint Allergies: Coded Allergies: LITHIUM (Verified Allergy, Unknown, 02/07/19) Objective Last 24 Hour Vital Signs Date Time Temp Pulse Resp B/P (MAP) Pulse Ox O2 Delivery O2 Flow Rate FiO2 01/03/20 08:00 Nasal Cannula 2.0 01/03/20 08:00 96.8 69 19 137/55 (82) 100 01/03/20 07:33 74 01/03/20 07:02 100 Nasal Cannula 2.0 28 01/03/20 04:00 Room Air 01/03/20 03:37 78 01/03/20 00:00 68 01/03/20 00:00 Nasal Cannula 2.0 01/02/20 20:19 97 Nasal Cannula 2.0 28 01/02/20 20:00 Nasal Cannula 2.0 01/02/20 20:00 97.0 78 19 116/48 (70) 100 01/02/20 20:00 75 01/02/20 16:00 74 01/02/20 16:00 Nasal Cannula 2.0 01/02/20 16:00 96.4 20 116/43 (67) 100 01/02/20 12:00 Nasal Cannula 2.0 01/02/20 12:00 97.3 83 22 119/50 (73) 99 01/02/20 11:36 84 Height (Feet): 5 Height (Inches): 7.00 Weight (Pounds): 184 HEENT: mucous membranes moist Respiratory/Chest: decreased breath sounds, rhonchi - bilaterally Cardiovascular: normal rate Abdomen: soft, non tender, other - rectal tube Extremities: no edema Neurologic/Psychiatric: other - sleeping Laboratory Tests Test 01/02/20 12:37 01/02/20 17:47 01/02/20 23:39 01/03/20 04:45 POC Whole Blood Glucose Pending 96 MG/DL (74-106) 122 MG/DL (74-106) H 114 MG/DL (74-106) H Test 01/03/20 08:45 White Blood Count 13.9 K/UL (4.8-10.8) H Red Blood Count 3.46 M/UL (4.20-5.40) L Hemoglobin 11.1 G/DL (12.0-16.0) L Hematocrit 35.0 % (37.0-47.0) L Mean Corpuscular Volume 101 FL (80-99) H Mean Corpuscular Hemoglobin 32.1 PG (27.0-31.0) H Mean Corpuscular Hemoglobin Concent 31.7 G/DL (32.0-36.0) L Red Cell Distribution Width 12.7 % (11.6-14.8) Platelet Count 238 K/UL (150-450) Mean Platelet Volume 7.5 FL (6.5-10.1) Neutrophils (%) (Auto) 80.5 % (45.0-75.0) H Lymphocytes (%) (Auto) 11.6 % (20.0-45.0) L Monocytes (%) (Auto) 7.0 % (1.0-10.0) Eosinophils (%) (Auto) 0.6 % (0.0-3.0) Basophils (%) (Auto) 0.4 % (0.0-2.0) Sodium Level 148 MMOL/L (136-145) H Potassium Level 3.9 MMOL/L (3.5-5.1) Chloride Level 108 MMOL/L (98-107) H Carbon Dioxide Level 37 MMOL/L (21-32) H Anion Gap 3 mmol/L (5-15) L Blood Urea Nitrogen 29 mg/dL (7-18) H Creatinine 0.7 MG/DL (0.55-1.30) Estimat Glomerular Filtration Rate > 60 mL/min (>60) Glucose Level 123 MG/DL (74-106) H Calcium Level 8.9 MG/DL (8.5-10.1) Current Medications Medications (Trade) Dose Ordered Sig/Angie Route PRN Reason Start Time Stop Time Status Last Admin Dose Admin Acetaminophen (Tylenol) 650 mg Q6H PRN GT Mild Pain (Pain Scale 1-3) 01/01/20 14:00 01/31/20 13:59 Acetaminophen (Tylenol) 1,000 mg Q6H PRN GT Moderate Pain (Pain Scale 4-6) 01/01/20 14:00 01/31/20 13:59 Amantadine HCl (Symmetrel) 100 mg TWICE A DAY ORAL 01/01/20 09:00 01/11/20 08:59 01/03/20 08:30 Aspirin (ASA) 325 mg DAILY NG 01/02/20 09:00 02/16/20 08:59 01/03/20 08:30 Atorvastatin Calcium (Lipitor) 10 mg BEDTIME NG 01/01/20 21:00 03/11/20 20:59 01/02/20 20:28 Barium Sulfate (Varibar Honey) 250 ml NOW PRN RAD 01/02/20 13:00 01/05/20 12:46 Barium Sulfate (Varibar Brigantine) 240 ml NOW PRN RAD 01/02/20 13:00 01/05/20 12:46 Barium Sulfate (Varibar Pudding) 230 ml NOW PRN RAD 01/02/20 13:00 01/05/20 12:46 Calcium Carbonate (Os-Octavio) 500 mg THREE TIMES A DAY NG 01/01/20 18:00 03/20/20 17:59 01/03/20 08:30 Clonidine HCl (Catapres Tab) 0.1 mg Q6H PRN NG For high BP over 160 systolic 01/01/20 14:15 03/11/20 12:30 Dextrose (Dextrose 50%) 25 ml Q30M PRN IV Hypoglycemia 12/31/19 22:45 03/12/20 07:14 Dextrose (Dextrose 50%) 50 ml Q30M PRN IV Hypoglycemia 12/31/19 22:45 03/12/20 07:14 Divalproex Sodium (Depakote) 250 mg EVERY 12 HOURS ORAL 01/01/20 09:00 01/12/20 20:59 01/03/20 08:30 Docusate Sodium (Colace) 100 mg TWICE A DAY NG 01/01/20 09:00 01/31/20 08:59 01/02/20 17:43 Insulin Aspart (NovoLOG) EVERY 6 HOURS SUBQ 01/01/20 00:00 03/12/20 11:59 01/02/20 12:00 Lactulose (Cephulac) 20 gm BID NG 01/01/20 18:00 01/24/20 08:59 01/02/20 17:48 Levothyroxine Sodium (Synthroid) 125 mcg DAILY NG 01/02/20 09:00 02/01/20 08:59 01/03/20 08:30 Nitroglycerin (Ntg) 0.4 mg Q5MIN X 3 DOSES PRN SL CHEST PAIN 12/31/19 22:30 01/10/20 21:44 Pantoprazole (Protonix) 40 mg EVERY 12 HOURS IVP 01/01/20 09:00 01/13/20 08:59 01/03/20 08:30 Polyethylene Glycol (Miralax) 17 gm BEDTIME NG 01/01/20 21:00 01/18/20 20:59 01/02/20 20:28 Polyethylene Glycol (Miralax) 17 gm DAILYPRN PRN NG Constipation 01/01/20 19:00 01/23/20 18:59 Quetiapine Fumarate (SEROqueL) 50 mg Q12HR NG 01/01/20 21:00 02/05/20 20:59 01/03/20 08:30 Lei Chan MD Jan 03, 2020 10:04
--- NOTE | 2020-01-03 10:32 | General Progress Note ---
Assessment/Plan Status: progressing, unchanged Assessment/Plan: Assessment - Resp failure - r/o COVID -- x 2 negative - COPD - HTN - Anemia - Abnormal LFT Recommendations - extubated now - Elevate HOB - abx - follow labs - f/u hepatitis serologies>>> neg -repeat labs -on antoinette diet now -will dc laxatives -bowel regimen Subjective ROS Limited/Unobtainable: No Allergies: Coded Allergies: LITHIUM (Verified Allergy, Unknown, 02/07/19) Objective Last 24 Hour Vital Signs Date Time Temp Pulse Resp B/P (MAP) Pulse Ox O2 Delivery O2 Flow Rate FiO2 01/03/20 08:00 Nasal Cannula 2.0 01/03/20 08:00 96.8 69 19 137/55 (82) 100 01/03/20 07:33 74 01/03/20 07:02 100 Nasal Cannula 2.0 28 01/03/20 04:00 Room Air 01/03/20 03:37 78 01/03/20 00:00 68 01/03/20 00:00 Nasal Cannula 2.0 01/02/20 20:19 97 Nasal Cannula 2.0 28 01/02/20 20:00 Nasal Cannula 2.0 01/02/20 20:00 97.0 78 19 116/48 (70) 100 01/02/20 20:00 75 01/02/20 16:00 74 01/02/20 16:00 Nasal Cannula 2.0 01/02/20 16:00 96.4 20 116/43 (67) 100 01/02/20 12:00 Nasal Cannula 2.0 01/02/20 12:00 97.3 83 22 119/50 (73) 99 01/02/20 11:36 84 Intake and Output 01/02/20 01/03/20 19:00 07:00 Intake Total 720 ml 100 ml Output Total 850 ml 25 ml Balance -130 ml 75 ml Intake Oral 720 ml 100 ml Output Urine Total 750 ml Stool Total 100 ml 25 ml # Bowel Movements 1 Laboratory Tests 01/02/20 12:37: POC Whole Blood Glucose [Pending] 01/02/20 17:47: POC Whole Blood Glucose 96 01/02/20 23:39: POC Whole Blood Glucose 122H 01/03/20 04:45: POC Whole Blood Glucose 114H 01/03/20 08:45: White Blood Count 13.9H, Red Blood Count 3.46L, Hemoglobin 11.1L, Hematocrit 35.0L, Mean Corpuscular Volume 101H, Mean Corpuscular Hemoglobin 32.1H, Mean Corpuscular Hemoglobin Concent 31.7L, Red Cell Distribution Width 12.7, Platelet Count 238, Mean Platelet Volume 7.5, Neutrophils (%) (Auto) 80.5H, Lymphocytes (%) (Auto) 11.6L, Monocytes (%) (Auto) 7.0, Eosinophils (%) (Auto) 0.6, Basophils (%) (Auto) 0.4, Sodium Level 148H, Potassium Level 3.9, Chloride Level 108H, Carbon Dioxide Level 37H, Anion Gap 3L, Blood Urea Nitrogen 29H, Creatinine 0.7, Estimat Glomerular Filtration Rate > 60, Glucose Level 123H, Calcium Level 8.9 Height (Feet): 5 Height (Inches): 7.00 Weight (Pounds): 184 General Appearance: no apparent distress EENT: TMs normal Neck: supple Cardiovascular: normal rate Respiratory/Chest: decreased breath sounds Abdomen: normal bowel sounds, non tender, soft Extremities: non-tender Kirk Vidal MD Jan 03, 2020 10:32
--- NOTE | 2020-01-03 10:35 | NUR ---
NURSE NOTES: Spoke with Dr. Vidal and updated patient's status. He said he will DC lactulose and colace then DC rectal tube upon discharge.
--- NOTE | 2020-01-03 11:09 | Nephrology Progress Note ---
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 Respiratory distress most likely secondary to pulmonary edema and or COPD exacerbation. Hyponatremia. Obese. Hypothyroidism. Elevated d-dimer. Elevated liver enzymes Plan January 02: No labs done today. Stable from renal standpoint of view. January 01: Lab reviewed. Renal parameters stable. December 31: Lab reviewed. No new labs today. Renal parameters stable. Continue her consultants. December 30: Lab reviewed. Renal parameters stable. On 1 L oxygen with cannula. Patient agitated periodically. Due transfer to [facility]. December 29: Lab reviewed. Renal parameters stable. Now on Venturi mask. CO2 lower to 35. December 28: Lab reviewed: CO2 remains high: On BiPAP. Continue per pulmonary. Stable from renal standpoint of view. December 27: Lab reviewed. Continues to retain CO2. On Venturi mask. Continue per pulmonary. Stable from renal standpoint of view. December 26: Lab reviewed. ABG reviewed. Patient retaining CO2. Remains on BiPAP. Continue per pulmonary. Stable from renal standpoint of view. December 25: Lab reviewed. TSH remains high. On nonrebreathing mask. Renal parameters stable. Synthroid dose increased. IV fluids stopped. December 24: Lab reviewed. Still on BiPAP. Renal parameters stable. December 23: Lab reviewed. Remains on BiPAP. Agitated at times. ABG ordered. Serum sodium improved. December 22: Lab reviewed. On BiPAP. Stable from renal standpoint of view. Will follow serum sodium. December 21: Labs reviewed. On nonrebreather mask. D5W 50 cc an hour started for hypernatremia. Magnesium supplement given. Continue per consultants. December 20: Patient on weaning trial. No labs done today. Discussed with RN. Continue per consultants. December 19: Patient remains intubated. Renal parameters stable. Discussed with RN. Continue per consultants. December 18: Patient self extubated yesterday however was reintubated. Remains stable from renal standpoint of view. Discussed with RN. Discussed with Dr. Myers. December 17: Remains intubated. Remains full code. Failed weaning. Stable from renal standpoint of view. Continue per consultants. Discussed with RN Moni. December 16: Remains intubated. Full code. Weaning in process. Stable from renal standpoint of view. December 15: Remains vented. Electrolytes improved. Continue per consultants. December 14: Patient remains in ICU intubated on ventilator. Potassium low. Phosphorus low. Supplements given. Renal parameters are stable. Continue per consultants. December 13: Patient remains in ICU intubated on ventilator. Discussed with RN. Labs reviewed. Creatinine 1.3. Potassium supplements given. Mag sulfate IV 2 g given. Continue per consultants. December 12: Patient in ICU. Intubated on ventilator. Discussed with RN. Labs reviewed. Potassium supplement given. Continue per consultants. Arterial blood gas indicative of CO2 retention. Patient on the way to ICU for intubation. Continue per pulmonary management. Pulmonary support, Check 2D echocardiogram. Previous 2D echo had a 50% ejection fraction. Keep blood sugar and blood pressure in check. Thyroid panel. Monitor electrolytes and renal parameters. Afterload reduction. Diuretics Monitor serum calcium, supplements via NG tube. Per orders. Subjective ROS Limited/Unobtainable: No Constitutional: Reports: malaise, weakness Objective Objective Last 24 Hour Vital Signs Date Time Temp Pulse Resp B/P (MAP) Pulse Ox O2 Delivery O2 Flow Rate FiO2 01/03/20 08:00 Nasal Cannula 2.0 01/03/20 08:00 96.8 69 19 137/55 (82) 100 01/03/20 07:33 74 01/03/20 07:02 100 Nasal Cannula 2.0 28 01/03/20 04:00 Room Air 01/03/20 03:37 78 01/03/20 00:00 68 01/03/20 00:00 Nasal Cannula 2.0 01/02/20 20:19 97 Nasal Cannula 2.0 28 01/02/20 20:00 Nasal Cannula 2.0 01/02/20 20:00 97.0 78 19 116/48 (70) 100 01/02/20 20:00 75 01/02/20 16:00 74 01/02/20 16:00 Nasal Cannula 2.0 01/02/20 16:00 96.4 20 116/43 (67) 100 01/02/20 12:00 Nasal Cannula 2.0 01/02/20 12:00 97.3 83 22 119/50 (73) 99 01/02/20 11:36 84 Intake and Output 01/02/20 01/03/20 19:00 07:00 Intake Total 720 ml 100 ml Output Total 850 ml 25 ml Balance -130 ml 75 ml Intake Oral 720 ml 100 ml Output Urine Total 750 ml Stool Total 100 ml 25 ml # Bowel Movements 1 Laboratory Tests 01/02/20 12:37: POC Whole Blood Glucose [Pending] 01/02/20 17:47: POC Whole Blood Glucose 96 01/02/20 23:39: POC Whole Blood Glucose 122H 01/03/20 04:45: POC Whole Blood Glucose 114H 01/03/20 08:45: White Blood Count 13.9H, Red Blood Count 3.46L, Hemoglobin 11.1L, Hematocrit 35.0L, Mean Corpuscular Volume 101H, Mean Corpuscular Hemoglobin 32.1H, Mean Corpuscular Hemoglobin Concent 31.7L, Red Cell Distribution Width 12.7, Platelet Count 238, Mean Platelet Volume 7.5, Neutrophils (%) (Auto) 80.5H, Lymphocytes (%) (Auto) 11.6L, Monocytes (%) (Auto) 7.0, Eosinophils (%) (Auto) 0.6, Basophils (%) (Auto) 0.4, Sodium Level 148H, Potassium Level 3.9, Chloride Level 108H, Carbon Dioxide Level 37H, Anion Gap 3L, Blood Urea Nitrogen 29H, Creatinine 0.7, Estimat Glomerular Filtration Rate > 60, Glucose Level 123H, Calcium Level 8.9 Height (Feet): 5 Height (Inches): 7.00 Weight (Pounds): 184 General Appearance: no apparent distress Cardiovascular: normal rate Respiratory/Chest: decreased breath sounds Abdomen: soft Bryan Ochoa MD Jan 03, 2020 11:09
--- NOTE | 2020-01-03 11:30 | NUR ---
ST NOTE/SWALLOW STATUS PATIENT CLEARED FOR ST INTERVENTION BY DARREL LYNN. PATIENT ALERT, AND AMENABLE TO ST INTERVENTION. PER PT WHO SAW HER PRIOR TO THIS SESSION, TODAY THE PATIENT PRESENTED MORE ALERT, COGNIZANT, ABLE TO FOLLOW SIMPLE DIRECTIONS. PATIENT POSITIONED UPRIGHT AT 90 DEGREES FOR P.O. TRIALS OF PUREE AND NECTAR THICK LIQUIDS. HER BASELINE RR WAS 20 BPM. AFTER INTAKE OF 2 0Z OF PUREE PRESENTED VIA SPOON, AND 15 TRIALS OF NECTAR THICK LIQUID VIA SPOON, PATIENTS RESPIRATION RATE ESCALATED TO 28 BPM, SUGGESTING DIFFICULTY COORDINATING SWALLOW AND BREATHING. PRE/POST SWALLOW, UPPER AIRWAY SOUNDS WERE CLEAR BUT WITH SUBSEQUENT TRIALS, DELAYED CONGESTION OCCURRED WITH WET/GURGLY UPPER AIRWAY SOUNDS. PATIENT UNABLE TO VOLITIONALLY CLEAR HER THROAT BUT ABLE TO INITIATE A VOLITIONAL COUGH (WEAK) WHICH APPEARED TO CLEAR HER UPPER AIRWAY. PATIENT CONTINUES TO PRESENT WITH HIGH ASPIRATION RISK SECONDARY TO OVERALL STAMINA, IMPULSIVITY/DIFFICULTIES WITH SELF/REGULATION RESULTING EATING LARGE BITES AT TOO RAPID OF PACE. THE CLINICIAN REVIEWED WITH THE PATIENT THE ASPIRATION RISK DURING P.O. AND REPEATED THE NEED TO NOT EAT WHEN SHORT OF BREATH, NOT TO TAKE LARGE BITES AND NOT TO EAT TOO FAST. THE PATIENT VERBALIZED UNDERSTANDING, BUT WHEN PRESENTED WITH P.O. TO INDEPENDENTLY FEED HERSELF SHE IMMEDIATELY REVERTED TO INTAKE OF LARGE BITES AT A RAPID RATE AND WHEN SHORT OF BREATH. . SHE CLEARLY NEEDS SUPERVISED P.O. INTAKE TO MINIMIZE HER RISK OF ASPIRATION. DISCUSSED RECOMMENDATIONS WITH DARREL LYNN. DISCHARGE IS PENDING TO NURSING FACILITY TODAY. ST INCLUDED IN DISCHARGE PACKET ST DOCUMENTATION RELATIVE TO DYSPHAGIA AND ASPIRATION PRECAUTIO RECOMMENDATION: 1. CONSIDER CXR TO DETERMINE PULMONARY STATUS /RESPONSE TO RESUMPTION OF P.O. 2. SUPERVISED MEALS TO MINIMIZE RISK OF ASPIRATION THANK YOU FOR THIS REFERRAL.
[2020-01-03 12:00] VITALS: BP 107/45
--- NOTE | 2020-01-03 15:12 | NUR ---
NURSE NOTES: Seen by Dr. Davies and assessed patient. No new order at this time. Will continue plan fo care.
--- NOTE | 2020-01-03 15:18 | NUR ---
NURSE NOTES: Seen by Dr. Perera and assessed patient. Mentioned possible discharge to [facility].
[2020-01-03 16:00] VITALS: BP 120/44
--- NOTE | 2020-01-03 16:01 | Cardiac Electrophysiology PN ---
Assessment/Plan Assessment/Plan 1. S/P Recurrent respiratory failure with BNP of more than 19,000. Normal EF. Off Lasix. 2. Bradycardia requiring atropine due to respiratory failure . No further 3. Bilateral UE edema. Venous Duplex was negative on 12/12/19. 4. History of Parkinson disease. 5. Hyperlipidemia. DW RN Awaiting placement Subjective Subjective On 2 liter Nasal Cannula on SDU. No events Objective Last 24 Hour Vital Signs Date Time Temp Pulse Resp B/P (MAP) Pulse Ox O2 Delivery O2 Flow Rate FiO2 01/03/20 12:00 67 01/03/20 12:00 Nasal Cannula 2.0 01/03/20 08:00 Nasal Cannula 2.0 01/03/20 08:00 96.8 69 19 137/55 (82) 100 01/03/20 07:33 74 01/03/20 07:02 100 Nasal Cannula 2.0 28 01/03/20 04:00 Room Air 01/03/20 03:37 78 01/03/20 00:00 68 01/03/20 00:00 Nasal Cannula 2.0 01/02/20 20:19 97 Nasal Cannula 2.0 28 01/02/20 20:00 Nasal Cannula 2.0 01/02/20 20:00 97.0 78 19 116/48 (70) 100 01/02/20 20:00 75 Intake and Output 01/02/20 01/03/20 19:00 07:00 Intake Total 720 ml 100 ml Output Total 850 ml 25 ml Balance -130 ml 75 ml Intake Oral 720 ml 100 ml Output Urine Total 750 ml Stool Total 100 ml 25 ml # Bowel Movements 1 Laboratory Tests Test 01/02/20 17:47 01/02/20 23:39 01/03/20 04:45 01/03/20 08:45 POC Whole Blood Glucose 96 MG/DL (74-106) 122 MG/DL (74-106) H 114 MG/DL (74-106) H White Blood Count 13.9 K/UL (4.8-10.8) H Red Blood Count 3.46 M/UL (4.20-5.40) L Hemoglobin 11.1 G/DL (12.0-16.0) L Hematocrit 35.0 % (37.0-47.0) L Mean Corpuscular Volume 101 FL (80-99) H Mean Corpuscular Hemoglobin 32.1 PG (27.0-31.0) H Mean Corpuscular Hemoglobin Concent 31.7 G/DL (32.0-36.0) L Red Cell Distribution Width 12.7 % (11.6-14.8) Platelet Count 238 K/UL (150-450) Mean Platelet Volume 7.5 FL (6.5-10.1) Neutrophils (%) (Auto) 80.5 % (45.0-75.0) H Lymphocytes (%) (Auto) 11.6 % (20.0-45.0) L Monocytes (%) (Auto) 7.0 % (1.0-10.0) Eosinophils (%) (Auto) 0.6 % (0.0-3.0) Basophils (%) (Auto) 0.4 % (0.0-2.0) Sodium Level 148 MMOL/L (136-145) H Potassium Level 3.9 MMOL/L (3.5-5.1) Chloride Level 108 MMOL/L (98-107) H Carbon Dioxide Level 37 MMOL/L (21-32) H Anion Gap 3 mmol/L (5-15) L Blood Urea Nitrogen 29 mg/dL (7-18) H Creatinine 0.7 MG/DL (0.55-1.30) Estimat Glomerular Filtration Rate > 60 mL/min (>60) Glucose Level 123 MG/DL (74-106) H Calcium Level 8.9 MG/DL (8.5-10.1) Test 01/03/20 11:21 POC Whole Blood Glucose 165 MG/DL (74-106) H Objective HEAD AND NECK: No JVD. LUNGS: Coarse rhonchi. CARDIOVASCULAR: Regular S1 and S2 and tachycardic. ABDOMEN: Soft. EXTREMITIES: Bilateral Arm edema. Cameron Davies MD Jan 03, 2020 16:01
--- NOTE | 2020-01-03 16:57 | Pulmonology Progress Note ---
Subjective ROS Limited/Unobtainable: No Interval Events: Extubated 12/21/19; did well on VENTIMASK; now on nasal o2 Constitutional: Denies: fever HEENT: Repors: no symptoms Respiratory: Reports: no symptoms Cardiovascular: Reports: no symptoms Gastrointestinal/Abdominal: Reports: diarrhea Genitourinary: Reports: no symptoms Allergies: Coded Allergies: LITHIUM (Verified Allergy, Unknown, 02/07/19) All Systems: reviewed and negative except above Objective Last 24 Hour Vital Signs Date Time Temp Pulse Resp B/P (MAP) Pulse Ox O2 Delivery O2 Flow Rate FiO2 01/03/20 16:00 76 01/03/20 16:00 Nasal Cannula 2.0 01/03/20 16:00 97.5 82 22 120/44 (69) 98 01/03/20 12:00 96.8 74 20 107/45 (65) 99 01/03/20 12:00 67 01/03/20 12:00 Nasal Cannula 2.0 01/03/20 08:00 Nasal Cannula 2.0 01/03/20 08:00 96.8 69 19 137/55 (82) 100 01/03/20 07:33 74 01/03/20 07:02 100 Nasal Cannula 2.0 28 01/03/20 04:00 Room Air 01/03/20 03:37 78 01/03/20 00:00 68 01/03/20 00:00 Nasal Cannula 2.0 01/02/20 20:19 97 Nasal Cannula 2.0 28 01/02/20 20:00 Nasal Cannula 2.0 01/02/20 20:00 97.0 78 19 116/48 (70) 100 01/02/20 20:00 75 Intake and Output 01/02/20 01/03/20 19:00 07:00 Intake Total 720 ml 100 ml Output Total 850 ml 25 ml Balance -130 ml 75 ml Intake Oral 720 ml 100 ml Output Urine Total 750 ml Stool Total 100 ml 25 ml # Bowel Movements 1 General Appearance: no acute distress Respiratory: chest wall non-tender, lungs clear Cardiovascular: normal peripheral pulses, normal rate Abdomen: normal bowel sounds Laboratory Tests 01/02/20 17:47: POC Whole Blood Glucose 96 01/02/20 23:39: POC Whole Blood Glucose 122H 01/03/20 04:45: POC Whole Blood Glucose 114H 01/03/20 08:45: White Blood Count 13.9H, Red Blood Count 3.46L, Hemoglobin 11.1L, Hematocrit 35.0L, Mean Corpuscular Volume 101H, Mean Corpuscular Hemoglobin 32.1H, Mean Corpuscular Hemoglobin Concent 31.7L, Red Cell Distribution Width 12.7, Platelet Count 238, Mean Platelet Volume 7.5, Neutrophils (%) (Auto) 80.5H, Lymphocytes (%) (Auto) 11.6L, Monocytes (%) (Auto) 7.0, Eosinophils (%) (Auto) 0.6, Basophils (%) (Auto) 0.4, Sodium Level 148H, Potassium Level 3.9, Chloride Level 108H, Carbon Dioxide Level 37H, Anion Gap 3L, Blood Urea Nitrogen 29H, Creatinine 0.7, Estimat Glomerular Filtration Rate > 60, Glucose Level 123H, Calcium Level 8.9 01/03/20 11:21: POC Whole Blood Glucose 165H Current Medications Medications (Trade) Dose Ordered Sig/Angie Route PRN Reason Start Time Stop Time Status Last Admin Dose Admin Acetaminophen (Tylenol) 650 mg Q6H PRN GT Mild Pain (Pain Scale 1-3) 01/01/20 14:00 01/31/20 13:59 Acetaminophen (Tylenol) 1,000 mg Q6H PRN GT Moderate Pain (Pain Scale 4-6) 01/01/20 14:00 01/31/20 13:59 Amantadine HCl (Symmetrel) 100 mg TWICE A DAY ORAL 01/01/20 09:00 01/11/20 08:59 01/03/20 08:30 Aspirin (ASA) 325 mg DAILY NG 01/02/20 09:00 02/16/20 08:59 01/03/20 08:30 Atorvastatin Calcium (Lipitor) 10 mg BEDTIME NG 01/01/20 21:00 03/11/20 20:59 01/02/20 20:28 Barium Sulfate (Varibar Honey) 250 ml NOW PRN MC RAD 01/02/20 13:00 01/05/20 12:46 Barium Sulfate (Varibar [place]) 240 ml NOW PRN MC RAD 01/02/20 13:00 01/05/20 12:46 Barium Sulfate (Varibar [place]ud[place]) 230 ml NOW PRN MC RAD 01/02/20 13:00 01/05/20 12:46 Calcium Carbonate (Os-Octavio) 500 mg THREE TIMES A DAY NG 01/01/20 18:00 03/20/20 17:59 01/03/20 12:13 Clonidine HCl (Catapres Tab) 0.1 mg Q6H PRN NG For high BP over 160 systolic 01/01/20 14:15 03/11/20 12:30 Dextrose (Dextrose 50%) 25 ml Q30M PRN IV Hypoglycemia 12/31/19 22:45 03/12/20 07:14 Dextrose (Dextrose 50%) 50 ml Q30M PRN IV Hypoglycemia 12/31/19 22:45 03/12/20 07:14 Divalproex Sodium (Depakote) 250 mg EVERY 12 HOURS ORAL 01/01/20 09:00 01/12/20 20:59 01/03/20 08:30 Insulin Aspart (NovoLOG) EVERY 6 HOURS SUBQ 01/01/20 00:00 03/12/20 11:59 01/03/20 12:15 Levothyroxine Sodium (Synthroid) 125 mcg DAILY NG 01/02/20 09:00 02/01/20 08:59 01/03/20 08:30 Nitroglycerin (Ntg) 0.4 mg Q5MIN X 3 DOSES PRN SL CHEST PAIN 12/31/19 22:30 01/10/20 21:44 Pantoprazole (Protonix) 40 mg EVERY 12 HOURS IVP 01/01/20 09:00 01/13/20 08:59 01/03/20 08:30 Polyethylene Glycol (Miralax) 17 gm BEDTIME NG 01/01/20 21:00 01/18/20 20:59 01/02/20 20:28 Polyethylene Glycol (Miralax) 17 gm DAILYPRN PRN NG Constipation 01/01/20 19:00 01/23/20 18:59 Quetiapine Fumarate (SEROqueL) 50 mg Q12HR NG 01/01/20 21:00 02/05/20 20:59 01/03/20 08:30 Assessment/Plan Assessment/Plan IMPRESSION: 1. Respiratory failure. Improved; now on nasal o2 2. Has healthcare-associated pneumonia; is negative for COVID-19. 3. Psych disorder. 4. Obesity. 5. Hypertension. 6. Hypernatremia DISCUSSION: Has negative COVID-19 swab. On Seroquel; on decreased dose Off steroids Off Lasix and Diamox Has diuresed well DC to snf Emer[facility] Fan Omar Syed MD Jan 03, 2020 16:57
--- NOTE | 2020-01-03 16:59 | NUR ---
NURSE NOTES: Still on Oxygen 2L/min via NC. No distress noted.
--- NOTE | 2020-01-03 17:55 | NUR ---
NURSE NOTES: Bed bath given. Kept dry, clean and comfortable.
[2020-01-03 19:00] VITALS: BP 125/44
--- NOTE | 2020-01-03 19:23 | NUR ---
HAND-OFF: Report given to DARREL Begum. Endorsed plan of care.
--- NOTE | 2020-01-03 19:24 | NUR ---
NURSE NOTES: received pt from Deejay Cueva., pt is awake and AOx2 confused at this moment. pt is resting on the bed, HOB greater than 30. no SOB noted. O2sat is at 100% with 2L of NC. pt states no at this time. call light within reach. right hand 22G and left hand 24G intact, clean, and patent. bed at the lowest position, alarmed, and locked. will continue to monitor pt with plan of care.
[2020-01-03] MEDS: Miralax 17gm pkt NG SCH (21:00)
--- NOTE | 2020-01-03 21:31 | General Progress Note ---
Assessment/Plan Problem List: (1) Dyspnea ICD Codes: R06.00 - Dyspnea, unspecified SNOMED: 181644218 (2) Hypothyroidism ICD Codes: E03.9 - Hypothyroidism, unspecified SNOMED: 45025352 (3) Obese ICD Codes: E66.9 - Obesity, unspecified SNOMED: 213443049, 584417807 (4) Psychosis ICD Codes: F29 - Unspecified psychosis not due to a substance or known physiological condition SNOMED: 03207285 (5) Respiratory failure ICD Codes: J96.90 - Respiratory failure, unspecified, unspecified whether with hypoxia or hypercapnia SNOMED: 395770484 (6) Respiratory distress ICD Codes: R06.03 - Acute respiratory distress SNOMED: 393650516 (7) Dyspnea ICD Codes: R06.00 - Dyspnea, unspecified SNOMED: 399769494 (8) Pneumonia ICD Codes: J18.9 - Pneumonia, unspecified organism SNOMED: 583258095 (9) Acute and chronic respiratory failure ICD Codes: J96.20 - Acute and chronic respiratory failure, unspecified whether with hypoxia or hypercapnia SNOMED: 70061514 (10) Diabetes mellitus type 2 in nonobese ICD Codes: E11.9 - Type 2 diabetes mellitus without complications SNOMED: 002798425 (11) CHF (congestive heart failure) ICD Codes: I50.9 - Heart failure, unspecified SNOMED: 94759779 Qualifiers: Qualified Codes: I50.9 - Heart failure, unspecified (12) Hypoxia ICD Codes: R09.02 - Hypoxemia SNOMED: 918001330 (13) Elevated d-dimer ICD Codes: R79.89 - Other specified abnormal findings of blood chemistry SNOMED: 127467156 (14) Schizophrenia ICD Codes: F20.9 - Schizophrenia, unspecified SNOMED: 83280884 (15) Parkinson disease ICD Codes: G20 - Parkinson's disease SNOMED: 81709675 Status: progressing, unchanged Assessment/Plan: chf copd resp insuff prn oxygen needs placement covid negative metabolic contraction e Subjective ROS Limited/Unobtainable: Yes Allergies: Coded Allergies: LITHIUM (Verified Allergy, Unknown, 02/07/19) Objective Last 24 Hour Vital Signs Date Time Temp Pulse Resp B/P (MAP) Pulse Ox O2 Delivery O2 Flow Rate FiO2 01/03/20 20:00 Nasal Cannula 2.0 01/03/20 19:28 84 01/03/20 19:23 100 Nasal Cannula 2.0 28 01/03/20 16:00 76 01/03/20 16:00 Nasal Cannula 2.0 01/03/20 16:00 97.5 82 22 120/44 (69) 98 01/03/20 12:00 96.8 74 20 107/45 (65) 99 01/03/20 12:00 67 01/03/20 12:00 Nasal Cannula 2.0 01/03/20 08:00 Nasal Cannula 2.0 01/03/20 08:00 96.8 69 19 137/55 (82) 100 01/03/20 07:33 74 01/03/20 07:02 100 Nasal Cannula 2.0 28 01/03/20 04:00 Room Air 01/03/20 03:37 78 01/03/20 00:00 68 01/03/20 00:00 Nasal Cannula 2.0 Intake and Output 01/02/20 01/03/20 19:00 07:00 Intake Total 720 ml 100 ml Output Total 850 ml 25 ml Balance -130 ml 75 ml Intake Oral 720 ml 100 ml Output Urine Total 750 ml Stool Total 100 ml 25 ml # Bowel Movements 1 Laboratory Tests 01/02/20 23:39: POC Whole Blood Glucose 122H 01/03/20 04:45: POC Whole Blood Glucose 114H 01/03/20 08:45: White Blood Count 13.9H, Red Blood Count 3.46L, Hemoglobin 11.1L, Hematocrit 35.0L, Mean Corpuscular Volume 101H, Mean Corpuscular Hemoglobin 32.1H, Mean Corpuscular Hemoglobin Concent 31.7L, Red Cell Distribution Width 12.7, Platelet Count 238, Mean Platelet Volume 7.5, Neutrophils (%) (Auto) 80.5H, Lymphocytes (%) (Auto) 11.6L, Monocytes (%) (Auto) 7.0, Eosinophils (%) (Auto) 0.6, Basophils (%) (Auto) 0.4, Sodium Level 148H, Potassium Level 3.9, Chloride Level 108H, Carbon Dioxide Level 37H, Anion Gap 3L, Blood Urea Nitrogen 29H, Creatinine 0.7, Estimat Glomerular Filtration Rate > 60, Glucose Level 123H, Calcium Level 8.9 01/03/20 11:21: POC Whole Blood Glucose 165H 01/03/20 17:07: POC Whole Blood Glucose 239H Height (Feet): 5 Height (Inches): 7.00 Weight (Pounds): 184 Dani Perera MD Jan 03, 2020 21:31
[2020-01-04] VITALS: BP 124/41
--- NOTE | 2020-01-04 02:00 | NUR ---
NURSE NOTES: cleaned pt, oral care given. repositioned Q 2hrs. no active bleeding noted. pt stable condition. call light within reach. will continue to monitor pt.
[2020-01-04 04:00] VITALS: BP 137/54
[2020-01-04 05:37] VITALS: BP 125/44
--- NOTE | 2020-01-04 05:49 | Pulmonology Progress Note ---
Subjective ROS Limited/Unobtainable: Yes Interval Events: Extubated 12/21/19; did well on VENTIMASK; now on nasal o2 Constitutional: Denies: fever HEENT: Repors: no symptoms Respiratory: Reports: no symptoms Cardiovascular: Reports: no symptoms Gastrointestinal/Abdominal: Reports: diarrhea Genitourinary: Reports: no symptoms Allergies: Coded Allergies: LITHIUM (Verified Allergy, Unknown, 02/07/19) All Systems: reviewed and negative except above Objective Last 24 Hour Vital Signs Date Time Temp Pulse Resp B/P (MAP) Pulse Ox O2 Delivery O2 Flow Rate FiO2 01/04/20 04:00 97.5 84 22 137/54 (81) 98 01/04/20 04:00 Nasal Cannula 2.0 01/04/20 03:59 76 01/04/20 00:00 98.2 74 22 124/41 (68) 98 01/04/20 00:00 Nasal Cannula 2.0 01/03/20 23:52 89 01/03/20 23:30 77 17 100 45 01/03/20 21:46 76 17 97 45 01/03/20 20:00 Nasal Cannula 2.0 01/03/20 19:28 84 01/03/20 19:23 100 Nasal Cannula 2.0 28 01/03/20 19:00 97.0 84 22 125/44 (71) 98 01/03/20 16:00 76 01/03/20 16:00 Nasal Cannula 2.0 01/03/20 16:00 97.5 82 22 120/44 (69) 98 01/03/20 12:00 96.8 74 20 107/45 (65) 99 01/03/20 12:00 67 01/03/20 12:00 Nasal Cannula 2.0 01/03/20 08:00 Nasal Cannula 2.0 01/03/20 08:00 96.8 69 19 137/55 (82) 100 01/03/20 07:33 74 01/03/20 07:02 100 Nasal Cannula 2.0 28 Intake and Output 01/03/20 01/04/20 19:00 07:00 Intake Total 360 ml Output Total 10 ml Balance 350 ml Intake Oral 360 ml Stool Total 10 ml # Voids 2 General Appearance: no acute distress Respiratory: chest wall non-tender, lungs clear Cardiovascular: normal peripheral pulses, normal rate Abdomen: normal bowel sounds Laboratory Tests 01/03/20 08:45: White Blood Count 13.9H, Red Blood Count 3.46L, Hemoglobin 11.1L, Hematocrit 35.0L, Mean Corpuscular Volume 101H, Mean Corpuscular Hemoglobin 32.1H, Mean Corpuscular Hemoglobin Concent 31.7L, Red Cell Distribution Width 12.7, Platelet Count 238, Mean Platelet Volume 7.5, Neutrophils (%) (Auto) 80.5H, Lymphocytes (%) (Auto) 11.6L, Monocytes (%) (Auto) 7.0, Eosinophils (%) (Auto) 0.6, Basophils (%) (Auto) 0.4, Sodium Level 148H, Potassium Level 3.9, Chloride Level 108H, Carbon Dioxide Level 37H, Anion Gap 3L, Blood Urea Nitrogen 29H, Creatinine 0.7, Estimat Glomerular Filtration Rate > 60, Glucose Level 123H, Calcium Level 8.9 01/03/20 11:21: POC Whole Blood Glucose 165H 01/03/20 17:07: POC Whole Blood Glucose 239H 01/03/20 23:05: POC Whole Blood Glucose 93 Current Medications Medications (Trade) Dose Ordered Sig/Angie Route PRN Reason Start Time Stop Time Status Last Admin Dose Admin Acetaminophen (Tylenol) 650 mg Q6H PRN GT Mild Pain (Pain Scale 1-3) 01/01/20 14:00 01/31/20 13:59 Acetaminophen (Tylenol) 1,000 mg Q6H PRN GT Moderate Pain (Pain Scale 4-6) 01/01/20 14:00 01/31/20 13:59 Amantadine HCl (Symmetrel) 100 mg TWICE A DAY ORAL 01/01/20 09:00 01/11/20 08:59 01/03/20 17:40 Aspirin (ASA) 325 mg DAILY NG 01/02/20 09:00 02/16/20 08:59 01/03/20 08:30 Atorvastatin Calcium (Lipitor) 10 mg BEDTIME NG 01/01/20 21:00 03/11/20 20:59 01/03/20 20:39 Barium Sulfate (Varibar Honey) 250 ml NOW PRN MC RAD 01/02/20 13:00 01/05/20 12:46 Barium Sulfate (Varibar [place]) 240 ml NOW PRN MC RAD 01/02/20 13:00 01/05/20 12:46 Barium Sulfate (Varibar Pudding) 230 ml NOW PRN MC RAD 01/02/20 13:00 01/05/20 12:46 Calcium Carbonate (Os-Octavio) 500 mg THREE TIMES A DAY NG 01/01/20 18:00 03/20/20 17:59 01/03/20 17:40 Clonidine HCl (Catapres Tab) 0.1 mg Q6H PRN NG For high BP over 160 systolic 01/01/20 14:15 03/11/20 12:30 Dextrose (Dextrose 50%) 25 ml Q30M PRN IV Hypoglycemia 12/31/19 22:45 03/12/20 07:14 Dextrose (Dextrose 50%) 50 ml Q30M PRN IV Hypoglycemia 12/31/19 22:45 03/12/20 07:14 Divalproex Sodium (Depakote) 250 mg EVERY 12 HOURS ORAL 01/01/20 09:00 01/12/20 20:59 01/03/20 20:38 Insulin Aspart (NovoLOG) EVERY 6 HOURS SUBQ 01/01/20 00:00 03/12/20 11:59 01/03/20 17:41 Levothyroxine Sodium (Synthroid) 125 mcg DAILY NG 01/02/20 09:00 02/01/20 08:59 01/03/20 08:30 Nitroglycerin (Ntg) 0.4 mg Q5MIN X 3 DOSES PRN SL CHEST PAIN 12/31/19 22:30 01/10/20 21:44 Pantoprazole (Protonix) 40 mg EVERY 12 HOURS IVP 01/01/20 09:00 01/13/20 08:59 01/03/20 20:38 Polyethylene Glycol (Miralax) 17 gm BEDTIME NG 01/01/20 21:00 01/18/20 20:59 01/02/20 20:28 Polyethylene Glycol (Miralax) 17 gm DAILYPRN PRN NG Constipation 01/01/20 19:00 01/23/20 18:59 Quetiapine Fumarate (SEROqueL) 50 mg Q12HR NG 01/01/20 21:00 02/05/20 20:59 01/03/20 20:38 Assessment/Plan Assessment/Plan IMPRESSION: 1. Respiratory failure. Improved; now on nasal o2 2. Has healthcare-associated pneumonia; is negative for COVID-19. 3. Psych disorder. 4. Obesity. 5. Hypertension. 6. Hypernatremia DISCUSSION: Has negative COVID-19 swab. On Seroquel; on decreased dose Off steroids Off Lasix and Diamox Has diuresed well DC to [facility] Emerita Fan Omar Syed MD Jan 04, 2020 05:49
[2020-01-04] MEDS: NovoLOG Insulin Flexpen SUBQ SCH ×3 (06:00→17:12)
--- NOTE | 2020-01-04 06:24 | Hematology/Onc Progress Note ---
Assessment/Plan Assessment/Plan # Lower extremity edema in setting of elevated ddimer --> lower ext duplex ordered to r/o dvt-->neg for dvt --> lovenox sq has been started --> low threshold for v/q or cta r/o pe # Anemia of chronic disease --> hgb 11-->10.-->9->11.9-->10.8->7.8->11->10.8->10.2-->9.6->9.5->10.8-->12--> 10->10.3 --> no e/o hemolysis --> no bleeding reported --> smear reviewed --> no go bleeding # Leukocytosis r/o infection, likely steriods related --> wbc trend 10==>12-->14->15-->12 --> steriods off --> abx off # Respiratory failure with copd exacerbation likely --> pulm toilet --> breathing rx --> steroids prn basis --> pulm eval ---> ABX per is on zosyn->now off # 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 ( combination of moderate aortic regurgitation and severe mitral regurgitation) --> diuresis as per cards --> lasix last time # Severe ascending aortic dilatation --> per Dr Keke campblel # Hypertension # Parkinson disease # Hyperlipidemia # Hypothyroidism # Dementia # Obesity # Schizophrenia --> as per [facility] --> restraints # Dvt ppx lovenox sq/scd's 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 business risk consultant care and alexei Rn Subjective Constitutional: Denies: no symptoms, chills, fever, malaise, weakness, other HEENT: Denies: no symptoms, eye pain, blurred vision, tearing, double vision, ear pain, ear discharge, nose pain, nose congestion, throat pain, throat swelling, mouth pain, mouth swelling, other Cardiovascular: Denies: no symptoms, chest pain, edema, irregular heart rate, lightheadedness, palpitations, syncope, other Respiratory: Denies: no symptoms, cough, shortness of breath, SOB with excertion, SOB at rest, sputum, wheezing, other Gastrointestinal/Abdominal: Denies: no symptoms, abdomen distended, abdominal pain, black stools, tarry stools, blood in stool, constipated, diarrhea, difficulty swallowing, nausea, poor appetite, poor fluid intake, rectal bleeding , vomiting, other Genitourinary: Denies: no symptoms, burning, discharge, frequency, flank pain, hematuria, incontinence, pain, urgency, other Neurologic/Psychiatric: Denies: no symptoms, anxiety, depressed, emotional problems, headache, numbness, paresthesia, pre-existing deficit, seizure, tingling, tremors, weakness, other Endocrine: Denies: no symptoms, excessive sweating, flushing, intolerance to cold, intolerance to heat, increased hunger, increased thirst, increased urine, unexplained weight gain, unexplained weight loss, other Allergies: Coded Allergies: LITHIUM (Verified Allergy, Unknown, 02/07/19) Subjective 12/12 labs are reviewed, intubated, with og, somewhat responsive, alexei rn 12/13 labs noted, hgb 7.8, tfs ok to start per gi 12/15 icu, restraints, no acute events, hep panel negative, sedated 12/16 no bleeding, in the icu, on abx, in restarints, sleepy, vent 12/17 is on vent, also is on abx, awake, with ogt 12/18 ng placed, hgb 9.6, no bleeding, no night sweats 12/19 labs reviewed, sedated, on vent, nob leeding, meds reviewed 12/20 remains on vent, audra bleeding, meds reviewed, no night sweats 12/22 hgb 9.5, to get zosyn x 1 more day, no night sweats meds reviewed 12/23 labs noted, no bleeding, with fm, no bleeding or night sweats 12/24 no bleeding, labs noted, no night sweats hgb 10, no hemolysis 12/25 remains fatigued, fm, labs are still pending from am 12/26 restraints, v mask, cxr reviewed 12/27 labs reviewed, no bleeding, hgb 10.8, no hemolysis on FM 12/29 remains disoriented on bipap and fm as needed, hgb better 12/30 wbc 15k, no bleeding, alexei rn, no night sweats off abx 12/31 wbc remains elevated, arousable, no bleeding, on fm 01/01 meds noted, labs reviewed, no bleeding on exam 01/02 refusing labs this am, no bleeding, meds noted, no hemolysis 01/03 no bleeding, meds noted, no night sweats, cbc pend Objective Objective Current Medications Medications (Trade) Dose Ordered Sig/Angie Route PRN Reason Start Time Stop Time Status Last Admin Dose Admin Acetaminophen (Tylenol) 650 mg Q6H PRN GT Mild Pain (Pain Scale 1-3) 01/01/20 14:00 01/31/20 13:59 Acetaminophen (Tylenol) 1,000 mg Q6H PRN GT Moderate Pain (Pain Scale 4-6) 01/01/20 14:00 01/31/20 13:59 Amantadine HCl (Symmetrel) 100 mg TWICE A DAY ORAL 01/01/20 09:00 01/11/20 08:59 01/03/20 17:40 Aspirin (ASA) 325 mg DAILY NG 01/02/20 09:00 02/16/20 08:59 01/03/20 08:30 Atorvastatin Calcium (Lipitor) 10 mg BEDTIME NG 01/01/20 21:00 03/11/20 20:59 01/03/20 20:39 Barium Sulfate (Varibar Honey) 250 ml NOW PRN MC RAD 01/02/20 13:00 01/05/20 12:46 Barium Sulfate (Varibar [place]) 240 ml NOW PRN MC RAD 01/02/20 13:00 01/05/20 12:46 Barium Sulfate (Varibar Pudding) 230 ml NOW PRN MC RAD 01/02/20 13:00 01/05/20 12:46 Calcium Carbonate (Os-Octavio) 500 mg THREE TIMES A DAY NG 01/01/20 18:00 03/20/20 17:59 01/03/20 17:40 Clonidine HCl (Catapres Tab) 0.1 mg Q6H PRN NG For high BP over 160 systolic 01/01/20 14:15 03/11/20 12:30 Dextrose (Dextrose 50%) 25 ml Q30M PRN IV Hypoglycemia 12/31/19 22:45 03/12/20 07:14 Dextrose (Dextrose 50%) 50 ml Q30M PRN IV Hypoglycemia 12/31/19 22:45 03/12/20 07:14 Divalproex Sodium (Depakote) 250 mg EVERY 12 HOURS ORAL 01/01/20 09:00 01/12/20 20:59 01/03/20 20:38 Insulin Aspart (NovoLOG) EVERY 6 HOURS SUBQ 01/01/20 00:00 03/12/20 11:59 01/03/20 17:41 Levothyroxine Sodium (Synthroid) 125 mcg DAILY NG 01/02/20 09:00 02/01/20 08:59 01/03/20 08:30 Nitroglycerin (Ntg) 0.4 mg Q5MIN X 3 DOSES PRN SL CHEST PAIN 12/31/19 22:30 01/10/20 21:44 Pantoprazole (Protonix) 40 mg EVERY 12 HOURS IVP 01/01/20 09:00 01/13/20 08:59 01/03/20 20:38 Polyethylene Glycol (Miralax) 17 gm BEDTIME NG 01/01/20 21:00 01/18/20 20:59 01/02/20 20:28 Polyethylene Glycol (Miralax) 17 gm DAILYPRN PRN NG Constipation 01/01/20 19:00 01/23/20 18:59 Quetiapine Fumarate (SEROqueL) 50 mg Q12HR NG 01/01/20 21:00 02/05/20 20:59 01/03/20 20:38 Last 24 Hour Vital Signs Date Time Temp Pulse Resp B/P (MAP) Pulse Ox O2 Delivery O2 Flow Rate FiO2 01/04/20 04:00 97.5 84 22 137/54 (81) 98 01/04/20 04:00 Nasal Cannula 2.0 01/04/20 03:59 76 01/04/20 00:00 98.2 74 22 124/41 (68) 98 01/04/20 00:00 Nasal Cannula 2.0 01/03/20 23:52 89 01/03/20 23:30 77 17 100 45 01/03/20 21:46 76 17 97 45 01/03/20 20:00 Nasal Cannula 2.0 01/03/20 19:28 84 01/03/20 19:23 100 Nasal Cannula 2.0 28 01/03/20 19:00 97.0 84 22 125/44 (71) 98 01/03/20 16:00 76 01/03/20 16:00 Nasal Cannula 2.0 01/03/20 16:00 97.5 82 22 120/44 (69) 98 01/03/20 12:00 96.8 74 20 107/45 (65) 99 01/03/20 12:00 67 01/03/20 12:00 Nasal Cannula 2.0 01/03/20 08:00 Nasal Cannula 2.0 01/03/20 08:00 96.8 69 19 137/55 (82) 100 01/03/20 07:33 74 01/03/20 07:02 100 Nasal Cannula 2.0 28 01/03/20 04:00 Room Air 01/03/20 03:37 78 01/03/20 00:00 68 01/03/20 00:00 Nasal Cannula 2.0 01/02/20 20:19 97 Nasal Cannula 2.0 28 01/02/20 20:00 Nasal Cannula 2.0 01/02/20 20:00 97.0 78 19 116/48 (70) 100 01/02/20 20:00 75 01/02/20 16:00 74 01/02/20 16:00 Nasal Cannula 2.0 01/02/20 16:00 96.4 20 116/43 (67) 100 01/02/20 12:00 Nasal Cannula 2.0 01/02/20 12:00 97.3 83 22 119/50 (73) 99 01/02/20 11:36 84 01/02/20 08:50 97 Nasal Cannula 2.0 28 01/02/20 08:00 97.0 75 19 116/47 (70) 97 01/02/20 08:00 Nasal Cannula 2.0 01/02/20 07:45 79 Intake and Output 01/03/20 01/04/20 19:00 07:00 Intake Total 360 ml Output Total 10 ml Balance 350 ml Intake Oral 360 ml Stool Total 10 ml # Voids 2 Labs Test 01/01/20 12:15 01/01/20 23:02 01/02/20 04:20 01/02/20 05:04 POC Whole Blood Glucose 150 MG/DL (74-106) 147 MG/DL (74-106) 153 MG/DL (74-106) White Blood Count 11.2 K/UL (4.8-10.8) Red Blood Count 3.41 M/UL (4.20-5.40) Hemoglobin 11.1 G/DL (12.0-16.0) Hematocrit 34.4 % (37.0-47.0) Mean Corpuscular Volume 101 FL (80-99) Mean Corpuscular Hemoglobin 32.6 PG (27.0-31.0) Mean Corpuscular Hemoglobin Concent 32.3 G/DL (32.0-36.0) Red Cell Distribution Width 12.8 % (11.6-14.8) Platelet Count 60 K/UL (150-450) Mean Platelet Volume 8.9 FL (6.5-10.1) Neutrophils (%) (Auto) % (45.0-75.0) Lymphocytes (%) (Auto) % (20.0-45.0) Monocytes (%) (Auto) % (1.0-10.0) Eosinophils (%) (Auto) % (0.0-3.0) Basophils (%) (Auto) % (0.0-2.0) Differential Total Cells Counted 100 Neutrophils % (Manual) 88 % (45-75) Lymphocytes % (Manual) 9 % (20-45) Monocytes % (Manual) 3 % (1-10) Eosinophils % (Manual) 0 % (0-3) Basophils % (Manual) 0 % (0-2) Band Neutrophils 0 % (0-8) Platelet Estimate Adequate Platelet Morphology Normal Clumped Platelets 3+ Hypochromasia 1+ Anisocytosis 1+ Sodium Level 146 MMOL/L (136-145) Potassium Level 4.3 MMOL/L (3.5-5.1) Chloride Level 107 MMOL/L (98-107) Carbon Dioxide Level 34 MMOL/L (21-32) Anion Gap 5 mmol/L (5-15) Blood Urea Nitrogen 32 mg/dL (7-18) Creatinine 0.7 MG/DL (0.55-1.30) Estimat Glomerular Filtration Rate > 60 mL/min (>60) Glucose Level 169 MG/DL (74-106) Calcium Level 8.7 MG/DL (8.5-10.1) Phosphorus Level 2.2 MG/DL (2.5-4.9) Magnesium Level 2.1 MG/DL (1.8-2.4) Total Bilirubin 0.7 MG/DL (0.2-1.0) Aspartate Amino Transf (AST/SGOT) 16 U/L (15-37) Alanine Aminotransferase (ALT/SGPT) 27 U/L (12-78) Alkaline Phosphatase 40 U/L (46-116) Total Protein 6.6 G/DL (6.4-8.2) Albumin 2.8 G/DL (3.4-5.0) Globulin 3.8 g/dL Albumin/Globulin Ratio 0.7 (1.0-2.7) Test 01/02/20 08:30 01/02/20 12:37 01/02/20 17:47 01/02/20 23:39 White Blood Count 12.6 K/UL (4.8-10.8) Red Blood Count 3.13 M/UL (4.20-5.40) Hemoglobin 10.3 G/DL (12.0-16.0) Hematocrit 31.9 % (37.0-47.0) Mean Corpuscular Volume 102 FL (80-99) Mean Corpuscular Hemoglobin 33.0 PG (27.0-31.0) Mean Corpuscular Hemoglobin Concent 32.4 G/DL (32.0-36.0) Red Cell Distribution Width 13.6 % (11.6-14.8) Platelet Count 241 K/UL (150-450) Mean Platelet Volume 7.3 FL (6.5-10.1) Neutrophils (%) (Auto) % (45.0-75.0) Lymphocytes (%) (Auto) % (20.0-45.0) Monocytes (%) (Auto) % (1.0-10.0) Eosinophils (%) (Auto) % (0.0-3.0) Basophils (%) (Auto) % (0.0-2.0) Differential Total Cells Counted 100 Neutrophils % (Manual) 93 % (45-75) Lymphocytes % (Manual) 5 % (20-45) Monocytes % (Manual) 2 % (1-10) Eosinophils % (Manual) 0 % (0-3) Basophils % (Manual) 0 % (0-2) Band Neutrophils 0 % (0-8) Platelet Estimate Adequate Platelet Morphology Normal Hypochromasia 1+ Anisocytosis 1+ Macrocytosis 1+ POC Whole Blood Glucose 96 MG/DL (74-106) 122 MG/DL (74-106) Test 01/03/20 04:45 01/03/20 08:45 01/03/20 11:21 01/03/20 17:07 POC Whole Blood Glucose 114 MG/DL (74-106) 165 MG/DL (74-106) 239 MG/DL (74-106) White Blood Count 13.9 K/UL (4.8-10.8) Red Blood Count 3.46 M/UL (4.20-5.40) Hemoglobin 11.1 G/DL (12.0-16.0) Hematocrit 35.0 % (37.0-47.0) Mean Corpuscular Volume 101 FL (80-99) Mean Corpuscular Hemoglobin 32.1 PG (27.0-31.0) Mean Corpuscular Hemoglobin Concent 31.7 G/DL (32.0-36.0) Red Cell Distribution Width 12.7 % (11.6-14.8) Platelet Count 238 K/UL (150-450) Mean Platelet Volume 7.5 FL (6.5-10.1) Neutrophils (%) (Auto) 80.5 % (45.0-75.0) Lymphocytes (%) (Auto) 11.6 % (20.0-45.0) Monocytes (%) (Auto) 7.0 % (1.0-10.0) Eosinophils (%) (Auto) 0.6 % (0.0-3.0) Basophils (%) (Auto) 0.4 % (0.0-2.0) Sodium Level 148 MMOL/L (136-145) Potassium Level 3.9 MMOL/L (3.5-5.1) Chloride Level 108 MMOL/L (98-107) Carbon Dioxide Level 37 MMOL/L (21-32) Anion Gap 3 mmol/L (5-15) Blood Urea Nitrogen 29 mg/dL (7-18) Creatinine 0.7 MG/DL (0.55-1.30) Estimat Glomerular Filtration Rate > 60 mL/min (>60) Glucose Level 123 MG/DL (74-106) Calcium Level 8.9 MG/DL (8.5-10.1) Test 01/03/20 23:05 01/04/20 06:03 POC Whole Blood Glucose 93 MG/DL (74-106) 99 MG/DL (74-106) Height (Feet): 5 Height (Inches): 7.00 Weight (Pounds): 184 Objective Vitals: reviewed General: NAD HEENT: nc, at ++ngt, facemask+ Neck: supple Chest: decreased breath sounds bilaterally Cardiovascular: RRR, no s3, s4 Abdomen: soft, nontender, nd Extremities: 1-2 + edema, scd's Neuro: nonverbal : iman+ Frank Escobar MD Jan 04, 2020 06:23
--- NOTE | 2020-01-04 06:43 | General Progress Note ---
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 - Other specified diabetes mellitus without complications SNOMED: 082798916 (2) Parkinson disease ICD Codes: G20 - Parkinson's disease SNOMED: 76356781 (3) Schizophrenia ICD Codes: F20.9 - Schizophrenia, unspecified SNOMED: 59961569 (4) Hypertension ICD Codes: I10 - Essential (primary) hypertension SNOMED: 85420020 (5) Respiratory failure ICD Codes: J96.90 - Respiratory failure, unspecified, unspecified whether with hypoxia or hypercapnia SNOMED: 442898833 (6) Hypothyroidism ICD Codes: E03.9 - Hypothyroidism, unspecified SNOMED: 87928950 (7) Diabetes mellitus type 2 in nonobese ICD Codes: E11.9 - Type 2 diabetes mellitus without complications SNOMED: 169537459 Status: progressing, unchanged Assessment/Plan: continue Levothyroxine 125 mcg daily continue Novolog sliding scale every 6 hours hypoglycemia protocol in order Subjective ROS Limited/Unobtainable: Yes Allergies: Coded Allergies: LITHIUM (Verified Allergy, Unknown, 02/07/19) Subjective events noted glucose values are stable Item Value Date Time Bedside Blood Glucose 99 mg/dl 01/04/20 0600 Bedside Blood Glucose 93 mg/dl 01/04/20 0000 Bedside Blood Glucose 239 mg/dl H 01/03/20 1800 Bedside Blood Glucose 165 mg/dl H 01/03/20 1215 Bedside Blood Glucose 114 mg/dl 01/03/20 0600 Objective Last 24 Hour Vital Signs Date Time Temp Pulse Resp B/P (MAP) Pulse Ox O2 Delivery O2 Flow Rate FiO2 01/04/20 04:00 97.5 84 22 137/54 (81) 98 01/04/20 04:00 Nasal Cannula 2.0 01/04/20 03:59 76 01/04/20 00:00 98.2 74 22 124/41 (68) 98 01/04/20 00:00 Nasal Cannula 2.0 01/03/20 23:52 89 01/03/20 23:30 77 17 100 45 01/03/20 21:46 76 17 97 45 01/03/20 20:00 Nasal Cannula 2.0 01/03/20 19:28 84 01/03/20 19:23 100 Nasal Cannula 2.0 28 01/03/20 19:00 97.0 84 22 125/44 (71) 98 01/03/20 16:00 76 01/03/20 16:00 Nasal Cannula 2.0 01/03/20 16:00 97.5 82 22 120/44 (69) 98 01/03/20 12:00 96.8 74 20 107/45 (65) 99 01/03/20 12:00 67 01/03/20 12:00 Nasal Cannula 2.0 01/03/20 08:00 Nasal Cannula 2.0 01/03/20 08:00 96.8 69 19 137/55 (82) 100 01/03/20 07:33 74 01/03/20 07:02 100 Nasal Cannula 2.0 28 Intake and Output 01/03/20 01/04/20 19:00 07:00 Intake Total 360 ml 70 ml Output Total 10 ml 8 ml Balance 350 ml 62 ml Intake Oral 360 ml 70 ml Stool Total 10 ml 8 ml # Voids 2 2 Laboratory Tests 01/03/20 08:45: White Blood Count 13.9H, Red Blood Count 3.46L, Hemoglobin 11.1L, Hematocrit 35.0L, Mean Corpuscular Volume 101H, Mean Corpuscular Hemoglobin 32.1H, Mean Corpuscular Hemoglobin Concent 31.7L, Red Cell Distribution Width 12.7, Platelet Count 238, Mean Platelet Volume 7.5, Neutrophils (%) (Auto) 80.5H, Lymphocytes (%) (Auto) 11.6L, Monocytes (%) (Auto) 7.0, Eosinophils (%) (Auto) 0.6, Basophils (%) (Auto) 0.4, Sodium Level 148H, Potassium Level 3.9, Chloride Level 108H, Carbon Dioxide Level 37H, Anion Gap 3L, Blood Urea Nitrogen 29H, Creatinine 0.7, Estimat Glomerular Filtration Rate > 60, Glucose Level 123H, Calcium Level 8.9 01/03/20 11:21: POC Whole Blood Glucose 165H 01/03/20 17:07: POC Whole Blood Glucose 239H 01/03/20 23:05: POC Whole Blood Glucose 93 01/04/20 06:03: POC Whole Blood Glucose 99 Height (Feet): 5 Height (Inches): 7.00 Weight (Pounds): 184 General Appearance: no apparent distress Neck: normal alignment Cardiovascular: normal rate Respiratory/Chest: decreased breath sounds Abdomen: normal bowel sounds Objective Current Medications Medications (Trade) Dose Ordered Sig/Angie Route PRN Reason Start Time Stop Time Status Last Admin Dose Admin Acetaminophen (Tylenol) 650 mg Q6H PRN GT Mild Pain (Pain Scale 1-3) 01/01/20 14:00 01/31/20 13:59 Acetaminophen (Tylenol) 1,000 mg Q6H PRN GT Moderate Pain (Pain Scale 4-6) 01/01/20 14:00 01/31/20 13:59 Amantadine HCl (Symmetrel) 100 mg TWICE A DAY ORAL 01/01/20 09:00 01/11/20 08:59 01/03/20 17:40 Aspirin (ASA) 325 mg DAILY NG 01/02/20 09:00 02/16/20 08:59 01/03/20 08:30 Atorvastatin Calcium (Lipitor) 10 mg BEDTIME NG 01/01/20 21:00 03/11/20 20:59 01/03/20 20:39 Barium Sulfate (Varibar Honey) 250 ml NOW PRN MC RAD 01/02/20 13:00 01/05/20 12:46 Barium Sulfate (Varibar [place]) 240 ml NOW PRN MC RAD 01/02/20 13:00 01/05/20 12:46 Barium Sulfate (Varibar Pudding) 230 ml NOW PRN MC RAD 01/02/20 13:00 01/05/20 12:46 Calcium Carbonate (Os-Octavio) 500 mg THREE TIMES A DAY NG 01/01/20 18:00 03/20/20 17:59 01/03/20 17:40 Clonidine HCl (Catapres Tab) 0.1 mg Q6H PRN NG For high BP over 160 systolic 01/01/20 14:15 03/11/20 12:30 Dextrose (Dextrose 50%) 25 ml Q30M PRN IV Hypoglycemia 12/31/19 22:45 03/12/20 07:14 Dextrose (Dextrose 50%) 50 ml Q30M PRN IV Hypoglycemia 12/31/19 22:45 03/12/20 07:14 Divalproex Sodium (Depakote) 250 mg EVERY 12 HOURS ORAL 01/01/20 09:00 01/12/20 20:59 01/03/20 20:38 Insulin Aspart (NovoLOG) EVERY 6 HOURS SUBQ 01/01/20 00:00 03/12/20 11:59 01/03/20 17:41 Levothyroxine Sodium (Synthroid) 125 mcg DAILY NG 01/02/20 09:00 02/01/20 08:59 01/03/20 08:30 Nitroglycerin (Ntg) 0.4 mg Q5MIN X 3 DOSES PRN SL CHEST PAIN 12/31/19 22:30 01/10/20 21:44 Pantoprazole (Protonix) 40 mg EVERY 12 HOURS IVP 01/01/20 09:00 01/13/20 08:59 01/03/20 20:38 Polyethylene Glycol (Miralax) 17 gm BEDTIME NG 01/01/20 21:00 01/18/20 20:59 01/02/20 20:28 Polyethylene Glycol (Miralax) 17 gm DAILYPRN PRN NG Constipation 01/01/20 19:00 01/23/20 18:59 Quetiapine Fumarate (SEROqueL) 50 mg Q12HR NG 01/01/20 21:00 02/05/20 20:59 01/03/20 20:38 Jabari Adams MD Jan 04, 2020 06:43
--- NOTE | 2020-01-04 07:20 | NUR ---
HAND-OFF: Report given to Miguel ROJO., endorsed plan of care. pt is stable condition, no active bleeding. no SOB noted.
[2020-01-04 07:59] VITALS: BP 130/40
--- NOTE | 2020-01-04 08:04 | Cardiac Electrophysiology PN ---
Assessment/Plan Assessment/Plan 1. S/P Recurrent respiratory failure with BNP of more than 19,000. Normal EF. Off Lasix.On Face Mask again 2. Bradycardia requiring atropine due to respiratory failure . No further 3. Bilateral UE edema. Venous Duplex was negative on 12/12/19. 4. History of Parkinson disease. 5. Hyperlipidemia. YOSELYN RN Subjective Subjective On Face Mask on SDU. No events Objective Last 24 Hour Vital Signs Date Time Temp Pulse Resp B/P (MAP) Pulse Ox O2 Delivery O2 Flow Rate FiO2 01/04/20 07:59 97.9 98 20 130/40 (70) 98 01/04/20 04:00 97.5 84 22 137/54 (81) 98 01/04/20 04:00 Nasal Cannula 2.0 01/04/20 03:59 76 01/04/20 00:00 98.2 74 22 124/41 (68) 98 01/04/20 00:00 Nasal Cannula 2.0 01/03/20 23:52 89 01/03/20 23:30 77 17 100 45 01/03/20 21:46 76 17 97 45 01/03/20 20:00 Nasal Cannula 2.0 01/03/20 19:28 84 01/03/20 19:23 100 Nasal Cannula 2.0 28 01/03/20 19:00 97.0 84 22 125/44 (71) 98 01/03/20 16:00 76 01/03/20 16:00 Nasal Cannula 2.0 01/03/20 16:00 97.5 82 22 120/44 (69) 98 01/03/20 12:00 96.8 74 20 107/45 (65) 99 01/03/20 12:00 67 01/03/20 12:00 Nasal Cannula 2.0 Intake and Output 01/03/20 01/04/20 19:00 07:00 Intake Total 360 ml 70 ml Output Total 10 ml 8 ml Balance 350 ml 62 ml Intake Oral 360 ml 70 ml Stool Total 10 ml 8 ml # Voids 2 2 Laboratory Tests Test 01/03/20 08:45 01/03/20 11:21 01/03/20 17:07 01/03/20 23:05 White Blood Count 13.9 K/UL (4.8-10.8) H Red Blood Count 3.46 M/UL (4.20-5.40) L Hemoglobin 11.1 G/DL (12.0-16.0) L Hematocrit 35.0 % (37.0-47.0) L Mean Corpuscular Volume 101 FL (80-99) H Mean Corpuscular Hemoglobin 32.1 PG (27.0-31.0) H Mean Corpuscular Hemoglobin Concent 31.7 G/DL (32.0-36.0) L Red Cell Distribution Width 12.7 % (11.6-14.8) Platelet Count 238 K/UL (150-450) Mean Platelet Volume 7.5 FL (6.5-10.1) Neutrophils (%) (Auto) 80.5 % (45.0-75.0) H Lymphocytes (%) (Auto) 11.6 % (20.0-45.0) L Monocytes (%) (Auto) 7.0 % (1.0-10.0) Eosinophils (%) (Auto) 0.6 % (0.0-3.0) Basophils (%) (Auto) 0.4 % (0.0-2.0) Sodium Level 148 MMOL/L (136-145) H Potassium Level 3.9 MMOL/L (3.5-5.1) Chloride Level 108 MMOL/L (98-107) H Carbon Dioxide Level 37 MMOL/L (21-32) H Anion Gap 3 mmol/L (5-15) L Blood Urea Nitrogen 29 mg/dL (7-18) H Creatinine 0.7 MG/DL (0.55-1.30) Estimat Glomerular Filtration Rate > 60 mL/min (>60) Glucose Level 123 MG/DL (74-106) H Calcium Level 8.9 MG/DL (8.5-10.1) POC Whole Blood Glucose 165 MG/DL (74-106) H 239 MG/DL (74-106) H 93 MG/DL (74-106) Test 01/04/20 06:03 POC Whole Blood Glucose 99 MG/DL (74-106) Objective HEAD AND NECK: No JVD. LUNGS: Coarse rhonchi. CARDIOVASCULAR: Regular S1 and S2 and tachycardic. ABDOMEN: Soft. EXTREMITIES: Bilateral Arm edema. Cameron Davies MD Jan 04, 2020 08:04
[2020-01-04] MEDS: Pantoprazole Inj IVP SCH ×2 (08:48→21:08)
[2020-01-04] MEDS: Os-Cal (Oyster Shell) 500mg tab NG SCH ×3 (08:48→17:17)
[2020-01-04] MEDS: Amantadine 100mg cap ORAL SCH ×2 (08:49→17:17)
[2020-01-04] MEDS: Levothyroxine 125mcg tab NG SCH (08:49)
--- NOTE | 2020-01-04 08:49 | Infectious Diseases Prog Note ---
Assessment/Plan Assessment/Plan IMPRESSION: COPD exacerbation, Pneumonia, COID19 X 2: negative Acute respiratory failure with hypercapnia Dementia, Parkinson, Mitral valve regurgitation, Hypertension, Hypothyroidism. 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 RECOMMENDATION: Observe off antibiotic Agree with discharge to SNF Subjective ROS Limited/Unobtainable: Yes Respiratory: Reports: other - desaturation with minimal exertion Neurologic: Reports: other - more alert off of restraint Allergies: Coded Allergies: LITHIUM (Verified Allergy, Unknown, 02/07/19) Objective Last 24 Hour Vital Signs Date Time Temp Pulse Resp B/P (MAP) Pulse Ox O2 Delivery O2 Flow Rate FiO2 01/04/20 07:59 97.9 98 20 130/40 (70) 98 01/04/20 04:00 97.5 84 22 137/54 (81) 98 01/04/20 04:00 Nasal Cannula 2.0 01/04/20 03:59 76 01/04/20 00:00 98.2 74 22 124/41 (68) 98 01/04/20 00:00 Nasal Cannula 2.0 01/03/20 23:52 89 01/03/20 23:30 77 17 100 45 01/03/20 21:46 76 17 97 45 01/03/20 20:00 Nasal Cannula 2.0 01/03/20 19:28 84 01/03/20 19:23 100 Nasal Cannula 2.0 28 01/03/20 19:00 97.0 84 22 125/44 (71) 98 01/03/20 16:00 76 01/03/20 16:00 Nasal Cannula 2.0 01/03/20 16:00 97.5 82 22 120/44 (69) 98 01/03/20 12:00 96.8 74 20 107/45 (65) 99 01/03/20 12:00 67 01/03/20 12:00 Nasal Cannula 2.0 Height (Feet): 5 Height (Inches): 7.00 Weight (Pounds): 186 HEENT: mucous membranes moist Respiratory/Chest: rhonchi - bilaterally, other - oxygen by nasal cannula Cardiovascular: normal rate Abdomen: soft, non tender, other - rectal tube Extremities: no edema Neurologic/Psychiatric: alert, responsive Laboratory Tests Test 01/03/20 11:21 01/03/20 17:07 01/03/20 23:05 01/04/20 06:03 POC Whole Blood Glucose 165 MG/DL (74-106) H 239 MG/DL (74-106) H 93 MG/DL (74-106) 99 MG/DL (74-106) Current Medications Medications (Trade) Dose Ordered Sig/Angie Route PRN Reason Start Time Stop Time Status Last Admin Dose Admin Acetaminophen (Tylenol) 650 mg Q6H PRN GT Mild Pain (Pain Scale 1-3) 01/01/20 14:00 01/31/20 13:59 Acetaminophen (Tylenol) 1,000 mg Q6H PRN GT Moderate Pain (Pain Scale 4-6) 01/01/20 14:00 01/31/20 13:59 Amantadine HCl (Symmetrel) 100 mg TWICE A DAY ORAL 01/01/20 09:00 01/11/20 08:59 01/03/20 17:40 Aspirin (ASA) 325 mg DAILY NG 01/02/20 09:00 02/16/20 08:59 01/03/20 08:30 Atorvastatin Calcium (Lipitor) 10 mg BEDTIME NG 01/01/20 21:00 03/11/20 20:59 01/03/20 20:39 Barium Sulfate (Varibar Honey) 250 ml NOW PRN MC RAD 01/02/20 13:00 01/05/20 12:46 Barium Sulfate (Varibar Seaman) 240 ml NOW PRN MC RAD 01/02/20 13:00 01/05/20 12:46 Barium Sulfate (Varibar Pudding) 230 ml NOW PRN RAD 01/02/20 13:00 01/05/20 12:46 Calcium Carbonate (Os-Octavio) 500 mg THREE TIMES A DAY NG 01/01/20 18:00 03/20/20 17:59 01/03/20 17:40 Clonidine HCl (Catapres Tab) 0.1 mg Q6H PRN NG For high BP over 160 systolic 01/01/20 14:15 03/11/20 12:30 Dextrose (Dextrose 50%) 25 ml Q30M PRN IV Hypoglycemia 12/31/19 22:45 03/12/20 07:14 Dextrose (Dextrose 50%) 50 ml Q30M PRN IV Hypoglycemia 12/31/19 22:45 03/12/20 07:14 Divalproex Sodium (Depakote) 250 mg EVERY 12 HOURS ORAL 01/01/20 09:00 01/12/20 20:59 01/03/20 20:38 Insulin Aspart (NovoLOG) EVERY 6 HOURS SUBQ 01/01/20 00:00 03/12/20 11:59 01/03/20 17:41 Levothyroxine Sodium (Synthroid) 125 mcg DAILY NG 01/02/20 09:00 02/01/20 08:59 01/03/20 08:30 Nitroglycerin (Ntg) 0.4 mg Q5MIN X 3 DOSES PRN SL CHEST PAIN 12/31/19 22:30 01/10/20 21:44 Pantoprazole (Protonix) 40 mg EVERY 12 HOURS IVP 01/01/20 09:00 01/13/20 08:59 01/03/20 20:38 Polyethylene Glycol (Miralax) 17 gm BEDTIME NG 01/01/20 21:00 01/18/20 20:59 01/02/20 20:28 Polyethylene Glycol (Miralax) 17 gm DAILYPRN PRN NG Constipation 01/01/20 19:00 01/23/20 18:59 Quetiapine Fumarate (SEROqueL) 50 mg Q12HR NG 01/01/20 21:00 02/05/20 20:59 01/03/20 20:38 Lei Chan MD Jan 04, 2020 08:49
[2020-01-04] MEDS ORDERED: Tubing IV Secondary IV ONE (09:19)
[2020-01-04 09:54] LABS: ALANINE AMINOTRANSFERASE 21 U/L (12-78); ALBUMIN 2.9 G/DL (3.4-5.0); ALBUMIN/GLOBULIN RATIO 0.8 (1.0-2.7); ASPARTATE AMINO TRANSFERASE 9 U/L (15-37); BILIRUBIN,TOTAL 0.6 MG/DL (0.2-1.0); BLOOD UREA NITROGEN 27 mg/dL (7-18); CALCIUM 8.9 MG/DL (8.5-10.1); CARBON DIOXIDE 40 MMOL/L (21-32); CHLORIDE 110 MMOL/L (98-107); CREATININE 0.8 MG/DL (0.55-1.30); PHOSPHORUS 2.5 MG/DL (2.5-4.9); POTASSIUM 3.8 MMOL/L (3.5-5.1); SODIUM 149 MMOL/L (136-145)
[2020-01-04 09:56] LABS: ANION GAP 0 mmol/L (5-15)
[2020-01-04 09:59] LABS: ALKALINE PHOSPHATASE 45 U/L (46-116)
--- NOTE | 2020-01-04 10:01 | General Progress Note ---
Assessment/Plan Status: progressing, unchanged Assessment/Plan: Assessment - Resp failure - r/o COVID -- x 2 negative - COPD - HTN - Anemia - Abnormal LFT Recommendations - extubated now - Elevate HOB - abx - follow labs - f/u hepatitis serologies>>> neg -repeat labs -on antoinette diet now -will dc laxatives -will dc rectal tube Subjective ROS Limited/Unobtainable: No Allergies: Coded Allergies: LITHIUM (Verified Allergy, Unknown, 02/07/19) Objective Last 24 Hour Vital Signs Date Time Temp Pulse Resp B/P (MAP) Pulse Ox O2 Delivery O2 Flow Rate FiO2 01/04/20 08:00 Nasal Cannula 2.0 01/04/20 07:59 97.9 98 20 130/40 (70) 98 01/04/20 07:57 82 01/04/20 07:00 98 Nasal Cannula 2.0 28 01/04/20 04:00 97.5 84 22 137/54 (81) 98 01/04/20 04:00 Nasal Cannula 2.0 01/04/20 03:59 76 01/04/20 00:00 98.2 74 22 124/41 (68) 98 01/04/20 00:00 Nasal Cannula 2.0 01/03/20 23:52 89 01/03/20 23:30 77 17 100 45 01/03/20 21:46 76 17 97 45 01/03/20 20:00 Nasal Cannula 2.0 01/03/20 19:28 84 01/03/20 19:23 100 Nasal Cannula 2.0 28 01/03/20 19:00 97.0 84 22 125/44 (71) 98 01/03/20 16:00 76 01/03/20 16:00 Nasal Cannula 2.0 01/03/20 16:00 97.5 82 22 120/44 (69) 98 01/03/20 12:00 96.8 74 20 107/45 (65) 99 01/03/20 12:00 67 01/03/20 12:00 Nasal Cannula 2.0 Intake and Output 01/03/20 01/04/20 19:00 07:00 Intake Total 360 ml 70 ml Output Total 10 ml 8 ml Balance 350 ml 62 ml Intake Oral 360 ml 70 ml Stool Total 10 ml 8 ml # Voids 2 2 Laboratory Tests 7/23/20 11:21: POC Whole Blood Glucose 165H 01/03/20 17:07: POC Whole Blood Glucose 239H 01/03/20 23:05: POC Whole Blood Glucose 93 01/04/20 06:03: POC Whole Blood Glucose 99 01/04/20 09:20: Sodium Level 149H, Potassium Level 3.8, Chloride Level 110H, Carbon Dioxide Level 40H, Anion Gap 0L, Blood Urea Nitrogen 27H, Creatinine 0.8, Estimat Glomerular Filtration Rate > 60, Glucose Level 107H, Calcium Level 8.9, Phosphorus Level 2.5, Magnesium Level 1.8, Total Bilirubin 0.6, Aspartate Amino Transf (AST/SGOT) 9L, Alanine Aminotransferase (ALT/SGPT) 21, Alkaline Phosphatase 45L, Total Protein 6.6, Albumin 2.9L, Globulin 3.7, Albumin/ Globulin Ratio 0.8L Height (Feet): 5 Height (Inches): 7.00 Weight (Pounds): 186 General Appearance: no apparent distress EENT: normal ENT inspection Neck: supple Cardiovascular: normal rate Respiratory/Chest: decreased breath sounds Abdomen: hypoactive bowel sounds Extremities: non-tender Kirk Vidal MD Jan 04, 2020 10:01
--- NOTE | 2020-01-04 10:19 | Nephrology Progress Note ---
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 Respiratory distress most likely secondary to pulmonary edema and or COPD exacerbation. Hyponatremia. Obese. Hypothyroidism. Elevated d-dimer. Elevated liver enzymes Plan January 03: Can panel reviewed. Renal parameters stable. Continue per consultants. Discharge planning in process. January 02: No labs done today. Stable from renal standpoint of view. January 01: Lab reviewed. Renal parameters stable. December 31: Lab reviewed. No new labs today. Renal parameters stable. Continue her consultants. December 30: Lab reviewed. Renal parameters stable. On 1 L oxygen with cannula. Patient agitated periodically. Due transfer to [facility]. December 29: Lab reviewed. Renal parameters stable. Now on Venturi mask. CO2 lower to 35. December 28: Lab reviewed: CO2 remains high: On BiPAP. Continue per pulmonary. Stable from renal standpoint of view. December 27: Lab reviewed. Continues to retain CO2. On Venturi mask. Continue per pulmonary. Stable from renal standpoint of view. December 26: Lab reviewed. ABG reviewed. Patient retaining CO2. Remains on BiPAP. Continue per pulmonary. Stable from renal standpoint of view. December 25: Lab reviewed. TSH remains high. On nonrebreathing mask. Renal parameters stable. Synthroid dose increased. IV fluids stopped. December 24: Lab reviewed. Still on BiPAP. Renal parameters stable. December 23: Lab reviewed. Remains on BiPAP. Agitated at times. ABG ordered. Serum sodium improved. December 22: Lab reviewed. On BiPAP. Stable from renal standpoint of view. Will follow serum sodium. December 21: Labs reviewed. On nonrebreather mask. D5W 50 cc an hour started for hypernatremia. Magnesium supplement given. Continue per consultants. December 20: Patient on weaning trial. No labs done today. Discussed with RN. Continue per consultants. December 19: Patient remains intubated. Renal parameters stable. Discussed with RN. Continue per consultants. December 18: Patient self extubated yesterday however was reintubated. Remains stable from renal standpoint of view. Discussed with RN. Discussed with Dr. Myers. Jacque 7: Remains intubated. Remains full code. Failed weaning. Stable from renal standpoint of view. Continue per consultants. Discussed with DARREL Montenegro. December 16: Remains intubated. Full code. Weaning in process. Stable from renal standpoint of view. December 15: Remains vented. Electrolytes improved. Continue per consultants. December 14: Patient remains in ICU intubated on ventilator. Potassium low. Phosphorus low. Supplements given. Renal parameters are stable. Continue per consultants. December 13: Patient remains in ICU intubated on ventilator. Discussed with RN. Labs reviewed. Creatinine 1.3. Potassium supplements given. Mag sulfate IV 2 g given. Continue per consultants. December 12: Patient in ICU. Intubated on ventilator. Discussed with RN. Labs reviewed. Potassium supplement given. Continue per consultants. Arterial blood gas indicative of CO2 retention. Patient on the way to ICU for intubation. Continue per pulmonary management. Pulmonary support, Check 2D echocardiogram. Previous 2D echo had a 50% ejection fraction. Keep blood sugar and blood pressure in check. Thyroid panel. Monitor electrolytes and renal parameters. Afterload reduction. Diuretics Monitor serum calcium, supplements via NG tube. Per orders. Subjective ROS Limited/Unobtainable: No Constitutional: Reports: malaise, weakness Objective Objective Last 24 Hour Vital Signs Date Time Temp Pulse Resp B/P (MAP) Pulse Ox O2 Delivery O2 Flow Rate FiO2 01/04/20 08:00 Nasal Cannula 2.0 01/04/20 07:59 97.9 98 20 130/40 (70) 98 01/04/20 07:57 82 01/04/20 07:00 98 Nasal Cannula 2.0 28 01/04/20 04:00 97.5 84 22 137/54 (81) 98 01/04/20 04:00 Nasal Cannula 2.0 01/04/20 03:59 76 01/04/20 00:00 98.2 74 22 124/41 (68) 98 01/04/20 00:00 Nasal Cannula 2.0 01/03/20 23:52 89 01/03/20 23:30 77 17 100 45 01/03/20 21:46 76 17 97 45 01/03/20 20:00 Nasal Cannula 2.0 01/03/20 19:28 84 01/03/20 19:23 100 Nasal Cannula 2.0 28 7/23/20 19:00 97.0 84 22 125/44 (71) 98 01/03/20 16:00 76 01/03/20 16:00 Nasal Cannula 2.0 01/03/20 16:00 97.5 82 22 120/44 (69) 98 01/03/20 12:00 96.8 74 20 107/45 (65) 99 01/03/20 12:00 67 01/03/20 12:00 Nasal Cannula 2.0 Intake and Output 01/03/20 01/04/20 19:00 07:00 Intake Total 360 ml 70 ml Output Total 10 ml 8 ml Balance 350 ml 62 ml Intake Oral 360 ml 70 ml Stool Total 10 ml 8 ml # Voids 2 2 Laboratory Tests 01/03/20 11:21: POC Whole Blood Glucose 165H 01/03/20 17:07: POC Whole Blood Glucose 239H 01/03/20 23:05: POC Whole Blood Glucose 93 01/04/20 06:03: POC Whole Blood Glucose 99 01/04/20 09:20: Sodium Level 149H, Potassium Level 3.8, Chloride Level 110H, Carbon Dioxide Level 40H, Anion Gap 0L, Blood Urea Nitrogen 27H, Creatinine 0.8, Estimat Glomerular Filtration Rate > 60, Glucose Level 107H, Calcium Level 8.9, Phosphorus Level 2.5, Magnesium Level 1.8, Total Bilirubin 0.6, Aspartate Amino Transf (AST/SGOT) 9L, Alanine Aminotransferase (ALT/SGPT) 21, Alkaline Phosphatase 45L, Total Protein 6.6, Albumin 2.9L, Globulin 3.7, Albumin/ Globulin Ratio 0.8L Height (Feet): 5 Height (Inches): 7.00 Weight (Pounds): 186 General Appearance: no apparent distress, lethargic Cardiovascular: other - Variable rate Respiratory/Chest: decreased breath sounds Abdomen: soft, distended Bryan Ochoa MD Jan 04, 2020 10:19
--- NOTE | 2020-01-04 11:48 | NUR ---
NURSE NOTES: Contacted and informed Dr. Vallejo, covering for Dr. Myers, regarding patient's new ABG results today: pH 7.403, pCO2 64.9, pO2 68.8, HCO3 39.6, O2 saturation 93% while on 2L NC. Currently patient is on 2LNC with SpO2 96% with RR 19. Patient has history of COPD. Dr. Vallejo acknowledged and gave no new orders at this time. Charge nurse made aware. Will continue to monitor patient.
--- NOTE | 2020-01-04 12:46 | NUR ---
DISCHARGE PLANNING: NOTE SSW NOTES RECEIVED FROM [facility] NOTES FAXED TO [facility]Y [facility] BED ASSIGNMENT Addendum: 01/04/20 at 1640 by Vianca Klein CM 01/04/2020 @ 1440- F/U CALL PLACED TO BETY ROGERS WHO STATED THAT NOW SHE REQUIRES AN ELOPEMENT ASSESSMENT A RESULT OF THE SSW NOTES SHE RECEIVED FROM [facility]. CALL PLACED TO SSW WHO HAS GONE FOR THE DAY Addendum: 01/04/20 at 1702 by Vianca Klein CM [facility] [phone] NOT ACCEPTING ANY NEW ADMISSIONS AT THIS TIME VIJAY STOLL / [phone] FAX>>> Per Marylou no detention beds at this time [facility] / [phone]>> not accepting d/t behaviors YARED PRESCOTT / [phone]>> not accepting d/t behaviors BETTY GIORDANO / [phone]>> no answer
--- NOTE | 2020-01-04 12:50 | NUR ---
CASE MANAGEMENT: REVIEW 01/04/2020 SI;A/C RESP FAILURE W/ HYPOXIA VS: T 97.9 HR 98 RR 20 B/P 130/40 SATS 98% ON 2L/NC LABS: NA 149 CL 110 CO2 40 BUN 27 GLU 107 AST 9 ALP 45 ABGs PCO2 64.9 PO2 68.8 HCO3 39.6 O2 SAT 93.3 BE 12.7 IS:INSULIN ASPART SUBQ Q6H DEPAKOTE PO Q12H LIPITOR NG QHS ASA NG QD SDU DCP: SNF PLAN OF CARE: DC PLANNING TO SNF
--- NOTE | 2020-01-04 16:04 | NUR ---
ST NOTE SWALLOW STATUS Patient being seen for ongoing dysphagia tx/management. Patients intake has been consistently >75% of recommended diet; current texture is Puree with [place] Thick Liquids. VITALS ON 2 L NASAL CANNULA: Fi02 28%; HR: 71; RR: 20; SP02 98%; pCO2: 64.9. Patient seen at bedside with meal tray and NA assisting Patient with PO. NA was trained and educated on safe swallow strategies, noted with good implementation of small bites at a slow rate. Patient with ongoing intermittent coughing during PO intake and breathing is intermittently appears slightly wheezing. Laryngeal elevation is present upon palpation appears reduced and delayed at bedside. Of note, Patients RR noted to increase with PO intake, and Patients SP02 slightly drops with PO. OXYGEN EQUIPMENT TECHNICIAN inquired to DARREL Rivera regarding completing MBSS today, OXYGEN EQUIPMENT TECHNICIAN attempted to complete on Tuesday01/02/20, however, Patient was going to be discharged so orders were cancelled. Per DARREL Rivera, Patients C02 is too high to be safely transferred down to radiology to complete MBSS evaluation, therefore, not completed. Patient continues to benefit from MBSS as an outpatient. ONGOING DISCHARGE PLANNING TAKING PLACE, Patient to be discharged to nursing facility. OXYGEN EQUIPMENT TECHNICIAN at next level of care to re-assessment/screen Patient upon admission and determine appropriateness for skilled ST intervention given Patients current modified diet; Patient additionally with a higher risk for aspiration when self-feeding and would benefit from 1 to 1 feeding via teaspoon at next level of care, Patient with ongoing unsafe eating habits and requires cues to take small bites, swallow all food in mouth prior to taking next bite. Patient may also benefit from training on swallow strategies such as effortful swallow and/or airway protection exercises such as Supraglottic Swallow. OXYGEN EQUIPMENT TECHNICIAN plans to continue to f/u with Patient while in house for dysphagia tx and management while Patient is in house. Continue current modified diet texture Moist Puree with [place] thick liquids while implementing posted aspiration precautions. Will continue to follow. OXYGEN EQUIPMENT TECHNICIAN [phone]
--- NOTE | 2020-01-04 17:56 | NUR ---
NURSE NOTES: Rectal tube discontinued per Dr. Vidal. Will continue to monitor patient.
--- NOTE | 2020-01-04 19:20 | NUR ---
NURSE NOTES: Received pt's report from DARREL Rivera. Pt is laying on bed, sleeping. No S/S of respiratory distress noted. SpO2 99, RR 16 noted. Pt is venturi mask 5L at this moment. Call-light within reach. Bed is low and locked position. Will continue to monitor with plan of care.
--- NOTE | 2020-01-04 19:24 | NUR ---
HAND-OFF: Report given to DARREL Cazares. Addendum: 01/04/20 at 1925 by CRISTY ELI RN NURSE NOTES: Correction: Report given to Daniel Russell RN.
[2020-01-04 20:00] VITALS: BP 135/87
--- NOTE | 2020-01-04 20:50 | General Progress Note ---
Assessment/Plan Problem List: (1) Dyspnea ICD Codes: R06.00 - Dyspnea, unspecified SNOMED: 028823721 (2) Hypothyroidism ICD Codes: E03.9 - Hypothyroidism, unspecified SNOMED: 53015076 (3) Obese ICD Codes: E66.9 - Obesity, unspecified SNOMED: 007036666, 034075137 (4) Psychosis ICD Codes: F29 - Unspecified psychosis not due to a substance or known physiological condition SNOMED: 75275135 (5) Respiratory failure ICD Codes: J96.90 - Respiratory failure, unspecified, unspecified whether with hypoxia or hypercapnia SNOMED: 851293945 (6) Respiratory distress ICD Codes: R06.03 - Acute respiratory distress SNOMED: 967857355 (7) Dyspnea ICD Codes: R06.00 - Dyspnea, unspecified SNOMED: 444747468 (8) Pneumonia ICD Codes: J18.9 - Pneumonia, unspecified organism SNOMED: 471581997 (9) Acute and chronic respiratory failure ICD Codes: J96.20 - Acute and chronic respiratory failure, unspecified whether with hypoxia or hypercapnia SNOMED: 27101970 (10) Diabetes mellitus type 2 in nonobese ICD Codes: E11.9 - Type 2 diabetes mellitus without complications SNOMED: 009118851 (11) CHF (congestive heart failure) ICD Codes: I50.9 - Heart failure, unspecified SNOMED: 12969756 Qualifiers: Qualified Codes: I50.9 - Heart failure, unspecified (12) Hypoxia ICD Codes: R09.02 - Hypoxemia SNOMED: 860474083 (13) Elevated d-dimer ICD Codes: R79.89 - Other specified abnormal findings of blood chemistry SNOMED: 057652559 (14) Schizophrenia ICD Codes: F20.9 - Schizophrenia, unspecified SNOMED: 64558863 (15) Parkinson disease ICD Codes: G20 - Parkinson's disease SNOMED: 10599123 Status: progressing, unchanged Assessment/Plan: chf copd resp insuff no change psych patient prn oxygen needs placement covid negative Subjective ROS Limited/Unobtainable: Yes Allergies: Coded Allergies: LITHIUM (Verified Allergy, Unknown, 02/07/19) Objective Last 24 Hour Vital Signs Date Time Temp Pulse Resp B/P (MAP) Pulse Ox O2 Delivery O2 Flow Rate FiO2 01/04/20 20:00 97.7 86 20 135/87 (103) 98 01/04/20 19:08 96 Venturi Mask 4.0 31 01/04/20 16:00 Nasal Cannula 2.0 01/04/20 15:27 83 01/04/20 12:00 Nasal Cannula 2.0 01/04/20 11:40 71 01/04/20 08:00 Nasal Cannula 2.0 01/04/20 07:59 97.9 98 20 130/40 (70) 98 01/04/20 07:57 82 01/04/20 07:00 98 Nasal Cannula 2.0 28 01/04/20 04:00 97.5 84 22 137/54 (81) 98 01/04/20 04:00 Nasal Cannula 2.0 01/04/20 03:59 76 01/04/20 00:00 98.2 74 22 124/41 (68) 98 01/04/20 00:00 Nasal Cannula 2.0 01/03/20 23:52 89 01/03/20 23:30 77 17 100 45 01/03/20 21:46 76 17 97 45 Intake and Output 01/03/20 01/04/20 19:00 07:00 Intake Total 360 ml 70 ml Output Total 10 ml 8 ml Balance 350 ml 62 ml Intake Oral 360 ml 70 ml Stool Total 10 ml 8 ml # Voids 2 2 Laboratory Tests 01/03/20 23:05: POC Whole Blood Glucose 93 01/04/20 06:03: POC Whole Blood Glucose 99 01/04/20 09:20: Sodium Level 149H, Potassium Level 3.8, Chloride Level 110H, Carbon Dioxide Level 40H, Anion Gap 0L, Blood Urea Nitrogen 27H, Creatinine 0.8, Estimat Glomerular Filtration Rate > 60, Glucose Level 107H, Calcium Level 8.9, Phosphorus Level 2.5, Magnesium Level 1.8, Total Bilirubin 0.6, Aspartate Amino Transf (AST/SGOT) 9L, Alanine Aminotransferase (ALT/SGPT) 21, Alkaline Phosphatase 45L, Total Protein 6.6, Albumin 2.9L, Globulin 3.7, Albumin/ Globulin Ratio 0.8L 01/04/20 10:21: Arterial Blood pH 7.403, Arterial Blood Partial Pressure CO2 64.9*H, Arterial Blood Partial Pressure O2 68.8L, Arterial Blood HCO3 39.6H, Arterial Blood Oxygen Saturation 93.3L, Arterial Blood Base Excess 12.7*H, Raphael Test Positive 01/04/20 12:49: POC Whole Blood Glucose 98 01/04/20 16:35: POC Whole Blood Glucose 127H Height (Feet): 5 Height (Inches): 7.00 Weight (Pounds): 186 Dani Perera MD Jan 04, 2020 20:50
[2020-01-04] MEDS: Miralax 17gm pkt NG SCH (21:08)
[2020-01-05] VITALS: BP 124/41
[2020-01-05 04:00] VITALS: BP 146/39
[2020-01-05] MEDS: NovoLOG Insulin Flexpen SUBQ SCH ×4 (06:00→18:00)
--- NOTE | 2020-01-05 06:39 | NUR ---
RESPIRATORY NOTE: Received pt on Bipap 20/6-30%. Pt is still sleeping, no SOB or resp distress noted. Foam tapes in place on nose bridge, cheeks and chin. Alarms are set and audible, Bipap is plugged into the red outlet, ambu bag is at bedside. Will continue to monitor.
--- NOTE | 2020-01-05 06:49 | NUR ---
NURSE NOTES: Pt bed may not be properly zeroed.
--- NOTE | 2020-01-05 07:38 | NUR ---
HAND-OFF: Report given to DARREL Irvin.
--- NOTE | 2020-01-05 07:44 | NUR ---
NURSE NOTES: Received report from Yany Hylton RN. Pt. in bed, sleeping but arousable. No sign of distress. On Bipap at 25/6 and Fi O2 30%. No grimacing noted. IV at left hand #24g. in placed SL. Bed in low position, locked. Call light within reach. Will cont. to monitor.
--- NOTE | 2020-01-05 07:56 | General Progress Note ---
Assessment/Plan Status: progressing, unchanged Assessment/Plan: Assessment - Resp failure - r/o COVID -- x 2 negative - COPD - HTN - Anemia - Abnormal LFT Recommendations - extubated now - Elevate HOB - abx - follow labs - f/u hepatitis serologies>>> neg -repeat labs -on oral diet now Subjective ROS Limited/Unobtainable: No Allergies: Coded Allergies: LITHIUM (Verified Allergy, Unknown, 02/07/19) Objective Last 24 Hour Vital Signs Date Time Temp Pulse Resp B/P (MAP) Pulse Ox O2 Delivery O2 Flow Rate FiO2 01/05/20 06:39 71 14 97 30 01/05/20 06:39 97 Bi-Pap 30 01/05/20 04:00 97.7 68 19 146/39 (74) 96 01/05/20 04:00 Bi-pap 01/05/20 04:00 25 01/05/20 03:32 68 01/05/20 03:25 75 16 100 25 01/05/20 01:38 30 01/05/20 01:37 78 21 98 30 01/05/20 00:00 88 01/05/20 00:00 97.9 78 20 124/41 (68) 98 01/05/20 00:00 Venturi Mask 5.0 01/04/20 20:00 97.7 86 20 135/87 (103) 98 01/04/20 20:00 Venturi Mask 5.0 01/04/20 19:27 86 01/04/20 19:08 96 Venturi Mask 4.0 31 01/04/20 16:00 Nasal Cannula 2.0 01/04/20 15:27 83 01/04/20 12:00 Nasal Cannula 2.0 01/04/20 11:40 71 01/04/20 08:00 Nasal Cannula 2.0 01/04/20 07:59 97.9 98 20 130/40 (70) 98 01/04/20 07:57 82 Intake and Output 01/04/20 01/05/20 19:00 07:00 Intake Total 400 ml 50 ml Balance 400 ml 50 ml Intake Oral 400 ml 50 ml # Voids 2 2 # Bowel Movements 1 Laboratory Tests 01/04/20 09:20: Sodium Level 149H, Potassium Level 3.8, Chloride Level 110H, Carbon Dioxide Level 40H, Anion Gap 0L, Blood Urea Nitrogen 27H, Creatinine 0.8, Estimat Glomerular Filtration Rate > 60, Glucose Level 107H, Calcium Level 8.9, Phosphorus Level 2.5, Magnesium Level 1.8, Total Bilirubin 0.6, Aspartate Amino Transf (AST/SGOT) 9L, Alanine Aminotransferase (ALT/SGPT) 21, Alkaline Phosphatase 45L, Total Protein 6.6, Albumin 2.9L, Globulin 3.7, Albumin/ Globulin Ratio 0.8L 01/04/20 10:21: Arterial Blood pH 7.403, Arterial Blood Partial Pressure CO2 64.9*H, Arterial Blood Partial Pressure O2 68.8L, Arterial Blood HCO3 39.6H, Arterial Blood Oxygen Saturation 93.3L, Arterial Blood Base Excess 12.7*H, Raphael Test Positive 01/04/20 12:49: POC Whole Blood Glucose 98 01/04/20 16:35: POC Whole Blood Glucose 127H Height (Feet): 5 Height (Inches): 7.00 Weight (Pounds): 227 General Appearance: alert EENT: normal ENT inspection Neck: supple Cardiovascular: tachycardia Respiratory/Chest: decreased breath sounds Abdomen: normal bowel sounds, non tender, soft Extremities: non-tender Kirk Vidal MD Jan 05, 2020 07:56
[2020-01-05 08:00] VITALS: BP 110/43
[2020-01-05] MEDS: Pantoprazole Inj IVP SCH ×2 (09:06→21:23)
[2020-01-05] MEDS: Levothyroxine 125mcg tab NG SCH (09:07)
[2020-01-05] MEDS: Os-Cal (Oyster Shell) 500mg tab NG SCH ×3 (09:07→17:37)
[2020-01-05] MEDS: Amantadine 100mg cap ORAL SCH ×2 (09:07→17:37)
--- NOTE | 2020-01-05 09:40 | Nephrology Progress Note ---
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 Respiratory distress most likely secondary to pulmonary edema and or COPD exacerbation. Hyponatremia. Obese. Hypothyroidism. Elevated d-dimer. Elevated liver enzymes Plan January 04: No can panel done today. Renal parameters overall stable. Will check labs tomorrow. Discharge planning in process. Discussed with RN. January 03: Can panel reviewed. Renal parameters stable. Continue per consultants. Discharge planning in process. January 02: No labs done today. Stable from renal standpoint of view. January 01: Lab reviewed. Renal parameters stable. December 31: Lab reviewed. No new labs today. Renal parameters stable. Continue her consultants. December 30: Lab reviewed. Renal parameters stable. On 1 L oxygen with cannula. Patient agitated periodically. Due transfer to [facility]. December 29: Lab reviewed. Renal parameters stable. Now on Venturi mask. CO2 lower to 35. December 28: Lab reviewed: CO2 remains high: On BiPAP. Continue per pulmonary. Stable from renal standpoint of view. December 27: Lab reviewed. Continues to retain CO2. On Venturi mask. Continue per pulmonary. Stable from renal standpoint of view. December 26: Lab reviewed. ABG reviewed. Patient retaining CO2. Remains on BiPAP. Continue per pulmonary. Stable from renal standpoint of view. December 25: Lab reviewed. TSH remains high. On nonrebreathing mask. Renal parameters stable. Synthroid dose increased. IV fluids stopped. December 24: Lab reviewed. Still on BiPAP. Renal parameters stable. December 23: Lab reviewed. Remains on BiPAP. Agitated at times. ABG ordered. Serum sodium improved. December 22: Lab reviewed. On BiPAP. Stable from renal standpoint of view. Will follow serum sodium. December 21: Labs reviewed. On nonrebreather mask. D5W 50 cc an hour started for hypernatremia. Magnesium supplement given. Continue per consultants. December 20: Patient on weaning trial. No labs done today. Discussed with RN. Continue per consultants. December 19: Patient remains intubated. Renal parameters stable. Discussed with RN. Continue per consultants. December 18: Patient self extubated yesterday however was reintubated. Remains stable from renal standpoint of view. Discussed with RN. Discussed with Dr. Myers. December 17: Remains intubated. Remains full code. Failed weaning. Stable from renal standpoint of view. Continue per consultants. Discussed with DARREL [place]. December 16: Remains intubated. Full code. Weaning in process. Stable from renal standpoint of view. December 15: Remains vented. Electrolytes improved. Continue per consultants. December 14: Patient remains in ICU intubated on ventilator. Potassium low. Phosphorus low. Supplements given. Renal parameters are stable. Continue per consultants. December 13: Patient remains in ICU intubated on ventilator. Discussed with RN. Labs reviewed. Creatinine 1.3. Potassium supplements given. Mag sulfate IV 2 g given. Continue per consultants. December 12: Patient in ICU. Intubated on ventilator. Discussed with RN. Labs reviewed. Potassium supplement given. Continue per consultants. Arterial blood gas indicative of CO2 retention. Patient on the way to ICU for intubation. Continue per pulmonary management. Pulmonary support, Check 2D echocardiogram. Previous 2D echo had a 50% ejection fraction. Keep blood sugar and blood pressure in check. Thyroid panel. Monitor electrolytes and renal parameters. Afterload reduction. Diuretics Monitor serum calcium, supplements via NG tube. Per orders. Subjective ROS Limited/Unobtainable: Yes Objective Objective Last 24 Hour Vital Signs Date Time Temp Pulse Resp B/P (MAP) Pulse Ox O2 Delivery O2 Flow Rate FiO2 01/05/20 08:00 Bi-pap 01/05/20 08:00 97.1 66 17 110/43 (65) 98 01/05/20 08:00 79 01/05/20 08:00 25 01/05/20 06:39 71 14 97 30 01/05/20 06:39 97 Bi-Pap 30 01/05/20 04:00 97.7 68 19 146/39 (74) 96 01/05/20 04:00 Bi-pap 01/05/20 04:00 25 01/05/20 03:32 68 01/05/20 03:25 75 16 100 25 01/05/20 01:38 30 01/05/20 01:37 78 21 98 30 01/05/20 00:00 88 01/05/20 00:00 97.9 78 20 124/41 (68) 98 01/05/20 00:00 Venturi Mask 5.0 01/04/20 20:00 97.7 86 20 135/87 (103) 98 01/04/20 20:00 Venturi Mask 5.0 01/04/20 19:27 86 01/04/20 19:08 96 Venturi Mask 4.0 31 01/04/20 16:00 Nasal Cannula 2.0 01/04/20 15:27 83 01/04/20 12:00 Nasal Cannula 2.0 01/04/20 11:40 71 Intake and Output 01/04/20 01/05/20 19:00 07:00 Intake Total 400 ml 50 ml Balance 400 ml 50 ml Intake Oral 400 ml 50 ml # Voids 2 2 # Bowel Movements 1 Laboratory Tests 01/04/20 10:21: Arterial Blood pH 7.403, Arterial Blood Partial Pressure CO2 64.9*H, Arterial Blood Partial Pressure O2 68.8L, Arterial Blood HCO3 39.6H, Arterial Blood Oxygen Saturation 93.3L, Arterial Blood Base Excess 12.7*H, Raphael Test Positive 01/04/20 12:49: POC Whole Blood Glucose 98 01/04/20 16:35: POC Whole Blood Glucose 127H Height (Feet): 5 Height (Inches): 7.00 Weight (Pounds): 227 General Appearance: no apparent distress, lethargic Cardiovascular: bradycardia Respiratory/Chest: decreased breath sounds Abdomen: soft Bryan Ochoa MD Jan 05, 2020 09:40
--- NOTE | 2020-01-05 12:05 | Hematology/Onc Progress Note ---
Assessment/Plan Assessment/Plan # Lower extremity edema in setting of elevated ddimer --> lower ext duplex ordered to r/o dvt-->neg for dvt --> lovenox sq has been started --> low threshold for v/q or cta r/o pe # Anemia of chronic disease --> hgb 11-->10.-->9->11.9-->10.8->7.8->11->10.8->10.2-->9.6->9.5->10.8-->12--> 10->10.3->11 --> no e/o hemolysis --> no bleeding reported --> smear reviewed --> no go bleeding --> asa to continue # Leukocytosis r/o infection, likely steriods related --> wbc trend 10==>12-->14->15-->12-->14 --> steriods off --> abx off # Respiratory failure with copd exacerbation likely --> pulm toilet --> breathing rx --> steroids prn basis --> pulm eval ---> ABX per is on zosyn->now off # 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 ( combination of moderate aortic regurgitation and severe mitral regurgitation) --> diuresis as per cards --> lasix last time # Severe ascending aortic dilatation --> per shannan, Dr Davies # Hypertension # Parkinson disease # Hyperlipidemia # Hypothyroidism # Dementia # Obesity # Schizophrenia --> as per [facility] --> restraints # Dvt ppx lovenox sq/scd's Appreciate travel consultant care and alexei Rn Subjective Constitutional: Denies: no symptoms, chills, fever, malaise, weakness, other HEENT: Denies: no symptoms, eye pain, blurred vision, tearing, double vision, ear pain, ear discharge, nose pain, nose congestion, throat pain, throat swelling, mouth pain, mouth swelling, other Respiratory: Denies: no symptoms, cough, shortness of breath, SOB with excertion, SOB at rest, sputum, wheezing, other Gastrointestinal/Abdominal: Denies: no symptoms, abdomen distended, abdominal pain, black stools, tarry stools, blood in stool, constipated, diarrhea, difficulty swallowing, nausea, poor appetite, poor fluid intake, rectal bleeding , vomiting, other Genitourinary: Denies: no symptoms, burning, discharge, frequency, flank pain, hematuria, incontinence, pain, urgency, other Endocrine: Denies: no symptoms, excessive sweating, flushing, intolerance to cold, intolerance to heat, increased hunger, increased thirst, increased urine, unexplained weight gain, unexplained weight loss, other Allergies: Coded Allergies: LITHIUM (Verified Allergy, Unknown, 02/07/19) Subjective 12/12 labs are reviewed, intubated, with og, somewhat responsive, alexei rn 12/13 labs noted, hgb 7.8, tfs ok to start per gi 12/15 icu, restraints, no acute events, hep panel negative, sedated 12/16 no bleeding, in the icu, on abx, in restarints, sleepy, vent 12/17 is on vent, also is on abx, awake, with ogt 12/18 ng placed, hgb 9.6, no bleeding, no night sweats 12/19 labs reviewed, sedated, on vent, nob leeding, meds reviewed 12/20 remains on vent, audra bleeding, meds reviewed, no night sweats 12/22 hgb 9.5, to get zosyn x 1 more day, no night sweats meds reviewed 12/23 labs noted, no bleeding, with fm, no bleeding or night sweats 12/24 no bleeding, labs noted, no night sweats hgb 10, no hemolysis 12/25 remains fatigued, fm, labs are still pending from am 12/26 restraints, v mask, cxr reviewed 12/27 labs reviewed, no bleeding, hgb 10.8, no hemolysis on FM 12/29 remains disoriented on bipap and fm as needed, hgb better 12/30 wbc 15k, no bleeding, dw rn, no night sweats off abx 12/31 wbc remains elevated, arousable, no bleeding, on fm 01/01 meds noted, labs reviewed, no bleeding on exam 01/02 refusing labs this am, no bleeding, meds noted, no hemolysis 01/03 no bleeding, meds noted, no night sweats, cbc pend 01/04 labs noted, no bleeding, cbc has been ordered for am, seen by gi, renal Objective Objective Current Medications Medications (Trade) Dose Ordered Sig/Angie Route PRN Reason Start Time Stop Time Status Last Admin Dose Admin Acetaminophen (Tylenol) 650 mg Q6H PRN GT Mild Pain (Pain Scale 1-3) 01/01/20 14:00 01/31/20 13:59 Acetaminophen (Tylenol) 1,000 mg Q6H PRN GT Moderate Pain (Pain Scale 4-6) 01/01/20 14:00 01/31/20 13:59 Amantadine HCl (Symmetrel) 100 mg TWICE A DAY ORAL 01/01/20 09:00 01/11/20 08:59 01/05/20 09:07 Aspirin (ASA) 325 mg DAILY NG 01/02/20 09:00 02/16/20 08:59 01/05/20 09:07 Atorvastatin Calcium (Lipitor) 10 mg BEDTIME NG 01/01/20 21:00 03/11/20 20:59 01/04/20 21:07 Barium Sulfate (Varibar Honey) 250 ml NOW PRN MC RAD 01/02/20 13:00 01/05/20 12:46 Barium Sulfate (Varibar [place]) 240 ml NOW PRN MC RAD 01/02/20 13:00 01/05/20 12:46 Barium Sulfate (Varibar Pudding) 230 ml NOW PRN MC RAD 01/02/20 13:00 01/05/20 12:46 Calcium Carbonate (Os-Octavio) 500 mg THREE TIMES A DAY NG 01/01/20 18:00 03/20/20 17:59 01/05/20 09:07 Clonidine HCl (Catapres Tab) 0.1 mg Q6H PRN NG For high BP over 160 systolic 01/01/20 14:15 03/11/20 12:30 Dextrose (Dextrose 50%) 25 ml Q30M PRN IV Hypoglycemia 12/31/19 22:45 03/12/20 07:14 Dextrose (Dextrose 50%) 50 ml Q30M PRN IV Hypoglycemia 12/31/19 22:45 03/12/20 07:14 Divalproex Sodium (Depakote) 250 mg EVERY 12 HOURS ORAL 01/01/20 09:00 01/12/20 20:59 01/05/20 09:07 Insulin Aspart (NovoLOG) EVERY 6 HOURS SUBQ 01/01/20 00:00 03/12/20 11:59 01/03/20 17:41 Levothyroxine Sodium (Synthroid) 125 mcg DAILY NG 01/02/20 09:00 02/01/20 08:59 01/05/20 09:07 Nitroglycerin (Ntg) 0.4 mg Q5MIN X 3 DOSES PRN SL CHEST PAIN 12/31/19 22:30 01/10/20 21:44 Pantoprazole (Protonix) 40 mg EVERY 12 HOURS IVP 01/01/20 09:00 01/13/20 08:59 01/05/20 09:06 Polyethylene Glycol (Miralax) 17 gm BEDTIME NG 01/01/20 21:00 01/18/20 20:59 01/04/20 21:08 Polyethylene Glycol (Miralax) 17 gm DAILYPRN PRN NG Constipation 01/01/20 19:00 01/23/20 18:59 Quetiapine Fumarate (SEROqueL) 50 mg Q12HR NG 01/01/20 21:00 02/05/20 20:59 01/05/20 09:07 Last 24 Hour Vital Signs Date Time Temp Pulse Resp B/P (MAP) Pulse Ox O2 Delivery O2 Flow Rate FiO2 01/05/20 10:43 63 15 99 30 01/05/20 08:00 Bi-pap 01/05/20 08:00 97.1 66 17 110/43 (65) 98 01/05/20 08:00 79 01/05/20 08:00 25 01/05/20 06:39 71 14 97 30 01/05/20 06:39 97 Bi-Pap 30 01/05/20 04:00 97.7 68 19 146/39 (74) 96 01/05/20 04:00 Bi-pap 01/05/20 04:00 25 01/05/20 03:32 68 01/05/20 03:25 75 16 100 25 01/05/20 01:38 30 01/05/20 01:37 78 21 98 30 01/05/20 00:00 88 01/05/20 00:00 97.9 78 20 124/41 (68) 98 01/05/20 00:00 Venturi Mask 5.0 01/04/20 20:00 97.7 86 20 135/87 (103) 98 01/04/20 20:00 Venturi Mask 5.0 01/04/20 19:27 86 01/04/20 19:08 96 Venturi Mask 4.0 31 01/04/20 16:00 Nasal Cannula 2.0 01/04/20 15:27 83 01/04/20 12:00 Nasal Cannula 2.0 01/04/20 11:40 71 01/04/20 08:00 Nasal Cannula 2.0 01/04/20 07:59 97.9 98 20 130/40 (70) 98 01/04/20 07:57 82 01/04/20 07:00 98 Nasal Cannula 2.0 28 01/04/20 04:00 97.5 84 22 137/54 (81) 98 01/04/20 04:00 Nasal Cannula 2.0 01/04/20 03:59 76 01/04/20 00:00 98.2 74 22 124/41 (68) 98 01/04/20 00:00 Nasal Cannula 2.0 01/03/20 23:52 89 01/03/20 23:30 77 17 100 45 01/03/20 21:46 76 17 97 45 01/03/20 20:00 Nasal Cannula 2.0 01/03/20 19:28 84 01/03/20 19:23 100 Nasal Cannula 2.0 28 01/03/20 19:00 97.0 84 22 125/44 (71) 98 01/03/20 16:00 76 01/03/20 16:00 Nasal Cannula 2.0 01/03/20 16:00 97.5 82 22 120/44 (69) 98 Intake and Output 01/04/20 01/05/20 19:00 07:00 Intake Total 400 ml 50 ml Balance 400 ml 50 ml Intake Oral 400 ml 50 ml # Voids 2 2 # Bowel Movements 1 Labs Test 01/02/20 12:37 01/02/20 17:47 01/02/20 23:39 01/03/20 04:45 POC Whole Blood Glucose 96 MG/DL (74-106) 122 MG/DL (74-106) 114 MG/DL (74-106) Test 01/03/20 08:45 01/03/20 11:21 01/03/20 17:07 01/03/20 23:05 White Blood Count 13.9 K/UL (4.8-10.8) Red Blood Count 3.46 M/UL (4.20-5.40) Hemoglobin 11.1 G/DL (12.0-16.0) Hematocrit 35.0 % (37.0-47.0) Mean Corpuscular Volume 101 FL (80-99) Mean Corpuscular Hemoglobin 32.1 PG (27.0-31.0) Mean Corpuscular Hemoglobin Concent 31.7 G/DL (32.0-36.0) Red Cell Distribution Width 12.7 % (11.6-14.8) Platelet Count 238 K/UL (150-450) Mean Platelet Volume 7.5 FL (6.5-10.1) Neutrophils (%) (Auto) 80.5 % (45.0-75.0) Lymphocytes (%) (Auto) 11.6 % (20.0-45.0) Monocytes (%) (Auto) 7.0 % (1.0-10.0) Eosinophils (%) (Auto) 0.6 % (0.0-3.0) Basophils (%) (Auto) 0.4 % (0.0-2.0) Sodium Level 148 MMOL/L (136-145) Potassium Level 3.9 MMOL/L (3.5-5.1) Chloride Level 108 MMOL/L (98-107) Carbon Dioxide Level 37 MMOL/L (21-32) Anion Gap 3 mmol/L (5-15) Blood Urea Nitrogen 29 mg/dL (7-18) Creatinine 0.7 MG/DL (0.55-1.30) Estimat Glomerular Filtration Rate > 60 mL/min (>60) Glucose Level 123 MG/DL (74-106) Calcium Level 8.9 MG/DL (8.5-10.1) POC Whole Blood Glucose 165 MG/DL (74-106) 239 MG/DL (74-106) 93 MG/DL (74-106) Test 01/04/20 06:03 01/04/20 09:20 01/04/20 10:21 01/04/20 12:49 POC Whole Blood Glucose 99 MG/DL (74-106) 98 MG/DL (74-106) Sodium Level 149 MMOL/L (136-145) Potassium Level 3.8 MMOL/L (3.5-5.1) Chloride Level 110 MMOL/L (98-107) Carbon Dioxide Level 40 MMOL/L (21-32) Anion Gap 0 mmol/L (5-15) Blood Urea Nitrogen 27 mg/dL (7-18) Creatinine 0.8 MG/DL (0.55-1.30) Estimat Glomerular Filtration Rate > 60 mL/min (>60) Glucose Level 107 MG/DL (74-106) Calcium Level 8.9 MG/DL (8.5-10.1) Phosphorus Level 2.5 MG/DL (2.5-4.9) Magnesium Level 1.8 MG/DL (1.8-2.4) Total Bilirubin 0.6 MG/DL (0.2-1.0) Aspartate Amino Transf (AST/SGOT) 9 U/L (15-37) Alanine Aminotransferase (ALT/SGPT) 21 U/L (12-78) Alkaline Phosphatase 45 U/L (46-116) Total Protein 6.6 G/DL (6.4-8.2) Albumin 2.9 G/DL (3.4-5.0) Globulin 3.7 g/dL Albumin/Globulin Ratio 0.8 (1.0-2.7) Arterial Blood pH 7.403 (7.350-7.450) Arterial Blood Partial Pressure CO2 64.9 mmHg (35.0-45.0) Arterial Blood Partial Pressure O2 68.8 mmHg (75.0-100.0) Arterial Blood HCO3 39.6 mmol/L (22.0-26.0) Arterial Blood Oxygen Saturation 93.3 % (95-100) Arterial Blood Base Excess 12.7 (-2-2) Raphael Test Positive Test 01/04/20 16:35 POC Whole Blood Glucose 127 MG/DL (74-106) Height (Feet): 5 Height (Inches): 7.00 Weight (Pounds): 227 Objective Vitals: reviewed General: NAD HEENT: nc, at ++ngt, facemask+ Neck: supple Chest: decreased breath sounds bilaterally Cardiovascular: RRR, no s3, s4 Abdomen: soft, nontender, nd Extremities: 1-2 + edema, scd's Neuro: nonverbal : iman+ Frank Escobar MD Jan 05, 2020 12:05
--- NOTE | 2020-01-05 14:12 | Pulmonology Progress Note ---
Subjective ROS Limited/Unobtainable: Yes Constitutional: Denies: fever HEENT: Repors: no symptoms Respiratory: Reports: no symptoms Cardiovascular: Reports: no symptoms Gastrointestinal/Abdominal: Reports: diarrhea Genitourinary: Reports: no symptoms Allergies: Coded Allergies: LITHIUM (Verified Allergy, Unknown, 02/07/19) All Systems: reviewed and negative except above Objective Last 24 Hour Vital Signs Date Time Temp Pulse Resp B/P (MAP) Pulse Ox O2 Delivery O2 Flow Rate FiO2 01/05/20 12:00 25 01/05/20 12:00 60 01/05/20 12:00 Bi-pap 01/05/20 10:43 63 15 99 30 01/05/20 08:00 Bi-pap 01/05/20 08:00 97.1 66 17 110/43 (65) 98 01/05/20 08:00 79 01/05/20 08:00 25 01/05/20 06:39 71 14 97 30 01/05/20 06:39 97 Bi-Pap 30 01/05/20 04:00 97.7 68 19 146/39 (74) 96 01/05/20 04:00 Bi-pap 01/05/20 04:00 25 01/05/20 03:32 68 01/05/20 03:25 75 16 100 25 01/05/20 01:38 30 01/05/20 01:37 78 21 98 30 01/05/20 00:00 88 01/05/20 00:00 97.9 78 20 124/41 (68) 98 01/05/20 00:00 Venturi Mask 5.0 01/04/20 20:00 97.7 86 20 135/87 (103) 98 01/04/20 20:00 Venturi Mask 5.0 01/04/20 19:27 86 01/04/20 19:08 96 Venturi Mask 4.0 31 01/04/20 16:00 Nasal Cannula 2.0 01/04/20 15:27 83 Intake and Output 01/04/20 01/05/20 19:00 07:00 Intake Total 400 ml 50 ml Balance 400 ml 50 ml Intake Oral 400 ml 50 ml # Voids 2 2 # Bowel Movements 1 General Appearance: no acute distress Respiratory: chest wall non-tender, lungs clear Cardiovascular: normal peripheral pulses, normal rate Abdomen: normal bowel sounds Laboratory Tests 01/04/20 16:35: POC Whole Blood Glucose 127H Current Medications Medications (Trade) Dose Ordered Sig/Angie Route PRN Reason Start Time Stop Time Status Last Admin Dose Admin Acetaminophen (Tylenol) 650 mg Q6H PRN GT Mild Pain (Pain Scale 1-3) 01/01/20 14:00 01/31/20 13:59 Acetaminophen (Tylenol) 1,000 mg Q6H PRN GT Moderate Pain (Pain Scale 4-6) 01/01/20 14:00 01/31/20 13:59 Amantadine HCl (Symmetrel) 100 mg TWICE A DAY ORAL 01/01/20 09:00 01/11/20 08:59 01/05/20 09:07 Aspirin (ASA) 325 mg DAILY NG 01/02/20 09:00 02/16/20 08:59 01/05/20 09:07 Atorvastatin Calcium (Lipitor) 10 mg BEDTIME NG 01/01/20 21:00 03/11/20 20:59 01/04/20 21:07 Calcium Carbonate (Os-Octavio) 500 mg THREE TIMES A DAY NG 01/01/20 18:00 03/20/20 17:59 01/05/20 09:07 Clonidine HCl (Catapres Tab) 0.1 mg Q6H PRN NG For high BP over 160 systolic 01/01/20 14:15 03/11/20 12:30 Dextrose (Dextrose 50%) 25 ml Q30M PRN IV Hypoglycemia 12/31/19 22:45 03/12/20 07:14 Dextrose (Dextrose 50%) 50 ml Q30M PRN IV Hypoglycemia 12/31/19 22:45 03/12/20 07:14 Divalproex Sodium (Depakote) 250 mg EVERY 12 HOURS ORAL 01/01/20 09:00 01/12/20 20:59 01/05/20 09:07 Insulin Aspart (NovoLOG) EVERY 6 HOURS SUBQ 01/01/20 00:00 03/12/20 11:59 01/03/20 17:41 Levothyroxine Sodium (Synthroid) 125 mcg DAILY NG 01/02/20 09:00 02/01/20 08:59 01/05/20 09:07 Nitroglycerin (Ntg) 0.4 mg Q5MIN X 3 DOSES PRN SL CHEST PAIN 12/31/19 22:30 01/10/20 21:44 Pantoprazole (Protonix) 40 mg EVERY 12 HOURS IVP 01/01/20 09:00 01/13/20 08:59 01/05/20 09:06 Polyethylene Glycol (Miralax) 17 gm BEDTIME NG 01/01/20 21:00 01/18/20 20:59 01/04/20 21:08 Polyethylene Glycol (Miralax) 17 gm DAILYPRN PRN NG Constipation 01/01/20 19:00 01/23/20 18:59 Quetiapine Fumarate (SEROqueL) 50 mg Q12HR NG 01/01/20 21:00 02/05/20 20:59 01/05/20 09:07 Assessment/Plan Assessment/Plan Pulmonary Progress Note Subjective Interval Events: Extubated 12/21/19; on Bipap PRN, is negative for COVID-19. Constitutional: Denies: fever HEENT: Repors: no symptoms Respiratory: Reports: no symptoms Cardiovascular: Reports: no symptoms Gastrointestinal/Abdominal: Reports: diarrhea Genitourinary: Reports: no symptoms Allergies: Coded Allergies: LITHIUM (Verified Allergy, Unknown, 02/07/19) Objective Vital Signs Noted General Appearance: no acute distress, on BiPAP Respiratory: chest wall non-tender, lungs clear Cardiovascular: normal peripheral pulses, normal rate, no edema Abdomen: soft, non tender, no distension, normal bowel sounds Laboratory Tests Noted Assessment/Plan IMPRESSION: 1. Respiratory failure. Improved; now on Bipap 2. Has healthcare-associated pneumonia 3. Psych disorder. 4. Obesity. 5. Hypertension. 6. Hypernatremia PLAN: Continue current antibiotics Bipap PRN Respiratory care On Seroquel Has diuresed well Jean Mccann MD Jan 05, 2020 14:12
[2020-01-05 16:00] VITALS: BP 127/52
--- NOTE | 2020-01-05 19:08 | NUR ---
HAND-OFF: Report given to Norma RN. Pt. remain stable.
--- NOTE | 2020-01-05 19:30 | NUR ---
NURSE NOTES: Received patient from DARREL Irvin. Upon assessment patient is stable, A/Ox1. Not oriented to time, place, purpose. Patient is observed to be on venturi mask 14L at 98% O2 sat. Left hand IV is patent and intact. Patient able to make needs known. Call light within reach, bed in lowest and locked position. Bed alarm on. Will continue monitoring.
[2020-01-05 20:00] VITALS: BP 120/47
--- NOTE | 2020-01-05 20:11 | Cardiac Electrophysiology PN ---
Assessment/Plan Assessment/Plan 1. S/P Recurrent respiratory failure with BNP of more than 19,000. Normal EF. On Face Mask again 2. Bradycardia requiring atropine due to respiratory failure . No further 3. Bilateral UE edema. Venous Duplex was negative on 12/12/19. 4. History of Parkinson disease. 5. Hyperlipidemia. YOSELYN RN Subjective Subjective On BIPAP again on SDU. No events Objective Last 24 Hour Vital Signs Date Time Temp Pulse Resp B/P (MAP) Pulse Ox O2 Delivery O2 Flow Rate FiO2 01/05/20 19:21 99 Venturi Mask 4.0 31 01/05/20 16:00 Bi-pap 01/05/20 16:00 68 01/05/20 16:00 97.7 71 23 127/52 (77) 98 01/05/20 16:00 4.0 01/05/20 15:15 66 16 98 01/05/20 12:00 25 01/05/20 12:00 60 01/05/20 12:00 Bi-pap 01/05/20 10:43 63 15 99 30 01/05/20 08:00 Bi-pap 01/05/20 08:00 97.1 66 17 110/43 (65) 98 01/05/20 08:00 79 01/05/20 08:00 25 01/05/20 06:39 71 14 97 30 01/05/20 06:39 97 Bi-Pap 30 01/05/20 04:00 97.7 68 19 146/39 (74) 96 01/05/20 04:00 Bi-pap 01/05/20 04:00 25 01/05/20 03:32 68 01/05/20 03:25 75 16 100 25 01/05/20 01:38 30 01/05/20 01:37 78 21 98 30 01/05/20 00:00 88 01/05/20 00:00 97.9 78 20 124/41 (68) 98 01/05/20 00:00 Venturi Mask 5.0 Intake and Output 01/04/20 01/05/20 19:00 07:00 Intake Total 400 ml 50 ml Balance 400 ml 50 ml Intake Oral 400 ml 50 ml # Voids 2 2 # Bowel Movements 1 Laboratory Tests Test 01/05/20 16:53 POC Whole Blood Glucose 125 MG/DL (74-106) H Objective HEAD AND NECK: No JVD. LUNGS: Coarse rhonchi. CARDIOVASCULAR: Regular S1 and S2 and tachycardic. ABDOMEN: Soft. EXTREMITIES: Bilateral Arm edema. Cameron Davies MD Jan 05, 2020 20:11
[2020-01-05] MEDS: Miralax 17gm pkt NG SCH (21:00)
--- NOTE | 2020-01-05 21:50 | General Progress Note ---
Assessment/Plan Problem List: (1) Dyspnea ICD Codes: R06.00 - Dyspnea, unspecified SNOMED: 252961035 (2) Hypothyroidism ICD Codes: E03.9 - Hypothyroidism, unspecified SNOMED: 05471193 (3) Obese ICD Codes: E66.9 - Obesity, unspecified SNOMED: 415273362, 441889509 (4) Psychosis ICD Codes: F29 - Unspecified psychosis not due to a substance or known physiological condition SNOMED: 92833135 (5) Respiratory failure ICD Codes: J96.90 - Respiratory failure, unspecified, unspecified whether with hypoxia or hypercapnia SNOMED: 749479444 (6) Respiratory distress ICD Codes: R06.03 - Acute respiratory distress SNOMED: 413762863 (7) Dyspnea ICD Codes: R06.00 - Dyspnea, unspecified SNOMED: 938056788 (8) Pneumonia ICD Codes: J18.9 - Pneumonia, unspecified organism SNOMED: 661523103 (9) Acute and chronic respiratory failure ICD Codes: J96.20 - Acute and chronic respiratory failure, unspecified whether with hypoxia or hypercapnia SNOMED: 00189633 (10) Diabetes mellitus type 2 in nonobese ICD Codes: E11.9 - Type 2 diabetes mellitus without complications SNOMED: 162866294 (11) CHF (congestive heart failure) ICD Codes: I50.9 - Heart failure, unspecified SNOMED: 15968587 Qualifiers: Qualified Codes: I50.9 - Heart failure, unspecified (12) Hypoxia ICD Codes: R09.02 - Hypoxemia SNOMED: 019628949 (13) Elevated d-dimer ICD Codes: R79.89 - Other specified abnormal findings of blood chemistry SNOMED: 012777270 (14) Schizophrenia ICD Codes: F20.9 - Schizophrenia, unspecified SNOMED: 61728735 (15) Parkinson disease ICD Codes: G20 - Parkinson's disease SNOMED: 98820932 Status: progressing, unchanged Assessment/Plan: chf copd prn oxygen needs placement check lytes alert s/p bipap Subjective ROS Limited/Unobtainable: Yes Allergies: Coded Allergies: LITHIUM (Verified Allergy, Unknown, 02/07/19) Objective Last 24 Hour Vital Signs Date Time Temp Pulse Resp B/P (MAP) Pulse Ox O2 Delivery O2 Flow Rate FiO2 01/05/20 20:00 97.3 60 18 120/47 (71) 98 01/05/20 20:00 4.0 01/05/20 19:21 99 Venturi Mask 4.0 31 01/05/20 16:00 Bi-pap 01/05/20 16:00 68 01/05/20 16:00 97.7 71 23 127/52 (77) 98 01/05/20 16:00 4.0 01/05/20 15:15 66 16 98 01/05/20 12:00 25 01/05/20 12:00 60 01/05/20 12:00 Bi-pap 01/05/20 10:43 63 15 99 30 01/05/20 08:00 Bi-pap 01/05/20 08:00 97.1 66 17 110/43 (65) 98 01/05/20 08:00 79 01/05/20 08:00 25 01/05/20 06:39 71 14 97 30 01/05/20 06:39 97 Bi-Pap 30 01/05/20 04:00 97.7 68 19 146/39 (74) 96 01/05/20 04:00 Bi-pap 01/05/20 04:00 25 01/05/20 03:32 68 01/05/20 03:25 75 16 100 25 01/05/20 01:38 30 01/05/20 01:37 78 21 98 30 01/05/20 00:00 88 01/05/20 00:00 97.9 78 20 124/41 (68) 98 01/05/20 00:00 Venturi Mask 5.0 Intake and Output 01/04/20 01/05/20 19:00 07:00 Intake Total 400 ml 50 ml Balance 400 ml 50 ml Intake Oral 400 ml 50 ml # Voids 2 2 # Bowel Movements 1 Laboratory Tests 01/05/20 16:53: POC Whole Blood Glucose 125H Height (Feet): 5 Height (Inches): 7.00 Weight (Pounds): 227 Dani Perera MD Jan 05, 2020 21:50
--- NOTE | 2020-01-05 22:30 | NUR ---
NURSE NOTES: Patient observed attempting to get up and removes mask multiple times during shift. Reoriented and monitoring closely.
[2020-01-06] VITALS: BP 124/40
--- NOTE | 2020-01-06 02:00 | NUR ---
NURSE NOTES: Observed patient continuously attempting to remove venturi mask. Reoriented patient to time, place, and purpose. Will monitor.
[2020-01-06 04:00] VITALS: BP 124/47
[2020-01-06 05:55] LABS: BASOPHILS % (AUTO) 0.3 % (0.0-2.0); EOSINOPHILS % (AUTO) 1.4 % (0.0-3.0); HEMATOCRIT 29.3 % (37.0-47.0); HEMOGLOBIN 9.3 G/DL (12.0-16.0); LYMPHOCYTES % (AUTO) 17.3 % (20.0-45.0); MEAN CORPUSCULAR VOLUME 101 FL (80-99); MONOCYTES % (AUTO) 5.8 % (1.0-10.0); NEUTROPHILS % (AUTO) 75.2 % (45.0-75.0); PLATELET COUNT 171 K/UL (150-450); WHITE BLOOD COUNT 6.1 K/UL (4.8-10.8)
[2020-01-06] MEDS: NovoLOG Insulin Flexpen SUBQ SCH ×5 (06:00→23:24)
[2020-01-06 06:41] LABS: ANION GAP 1 mmol/L (5-15); BLOOD UREA NITROGEN 31 mg/dL (7-18); CALCIUM 8.8 MG/DL (8.5-10.1); CARBON DIOXIDE 39 MMOL/L (21-32); CHLORIDE 110 MMOL/L (98-107); CREATININE 0.7 MG/DL (0.55-1.30); POTASSIUM 3.6 MMOL/L (3.5-5.1); SODIUM 150 MMOL/L (136-145)
--- NOTE | 2020-01-06 07:30 | NUR ---
HAND-OFF: Report given to DARREL Arceo. Pt in stable condition. Endorsed plan of care.
--- NOTE | 2020-01-06 07:32 | General Progress Note ---
Assessment/Plan Status: progressing, unchanged Assessment/Plan: Assessment - Resp failure - r/o COVID -- x 2 negative - COPD - HTN - Anemia - Abnormal LFT -anemia Recommendations - extubated now - Elevate HOB - abx - follow labs - f/u hepatitis serologies>>> neg -repeat labs -on oral diet now -drop in H&H without obvious bleed -repeat cbc in am -ppi Subjective ROS Limited/Unobtainable: No Allergies: Coded Allergies: LITHIUM (Verified Allergy, Unknown, 02/07/19) Objective Last 24 Hour Vital Signs Date Time Temp Pulse Resp B/P (MAP) Pulse Ox O2 Delivery O2 Flow Rate FiO2 01/06/20 07:12 100 Venturi Mask 4.0 31 01/06/20 04:00 Venturi Mask 4.0 01/06/20 04:00 97.5 66 21 124/47 (72) 97 01/06/20 04:00 61 01/06/20 04:00 4.0 01/06/20 00:00 74 01/06/20 00:00 4.0 01/06/20 00:00 Venturi Mask 4.0 01/06/20 00:00 97.9 62 20 124/40 (68) 98 01/05/20 20:00 97.3 60 18 120/47 (71) 98 01/05/20 20:00 4.0 01/05/20 20:00 Venturi Mask 4.0 01/05/20 19:21 99 Venturi Mask 4.0 31 01/05/20 19:21 65 01/05/20 16:00 Bi-pap 01/05/20 16:00 68 01/05/20 16:00 97.7 71 23 127/52 (77) 98 01/05/20 16:00 4.0 01/05/20 15:15 66 16 98 01/05/20 12:00 25 01/05/20 12:00 60 01/05/20 12:00 Bi-pap 01/05/20 10:43 63 15 99 30 01/05/20 08:00 Bi-pap 01/05/20 08:00 97.1 66 17 110/43 (65) 98 01/05/20 08:00 79 01/05/20 08:00 25 Intake and Output 01/05/20 01/06/20 19:00 07:00 Intake Total 360 ml 100 ml Balance 360 ml 100 ml Intake Oral 360 ml 100 ml # Voids 2 1 Laboratory Tests 01/05/20 16:53: POC Whole Blood Glucose 125H 01/06/20 00:32: POC Whole Blood Glucose 123H 01/06/20 05:30: White Blood Count 6.1, Red Blood Count 2.90L, Hemoglobin 9.3L, Hematocrit 29.3L , Mean Corpuscular Volume 101H, Mean Corpuscular Hemoglobin 32.0H, Mean Corpuscular Hemoglobin Concent 31.7L, Red Cell Distribution Width 13.0, Platelet Count 171, Mean Platelet Volume 6.6, Neutrophils (%) (Auto) 75.2H, Lymphocytes (%) (Auto) 17.3L, Monocytes (%) (Auto) 5.8, Eosinophils (%) (Auto) 1.4, Basophils (%) (Auto) 0.3, Sodium Level 150H, Potassium Level 3.6, Chloride Level 110H, Carbon Dioxide Level 39H, Anion Gap 1L, Blood Urea Nitrogen 31H, Creatinine 0.7, Estimat Glomerular Filtration Rate > 60, Glucose Level 112H, Calcium Level 8.8 01/06/20 06:09: POC Whole Blood Glucose 93 Height (Feet): 5 Height (Inches): 7.00 Weight (Pounds): 203 General Appearance: mild distress EENT: normal ENT inspection Neck: supple Cardiovascular: normal rate Respiratory/Chest: decreased breath sounds Abdomen: normal bowel sounds, non tender, soft Extremities: non-tender Kirk Vidal MD Jan 06, 2020 07:32
--- NOTE | 2020-01-06 08:00 | NUR ---
NURSE NOTES: Pt asleep in bed, breathing easily on venturi mask, awakens to soft voice denies SOB and denies pain at this time. Pt continually pulls off mask, necessitating replacement. Vital signs stable with SR @ 72 on monitor. IV access left hand flushed with 10 ml NS and locked. P200 mattress installed on bed and running. Bed left in low position, exit alarm set and side rails up x 3, call light left near pt's hand.
[2020-01-06 08:05] VITALS: BP 124/47
[2020-01-06] MEDS: Pantoprazole Inj IVP SCH (09:18)
[2020-01-06] MEDS: Os-Cal (Oyster Shell) 500mg tab NG SCH (09:18)
[2020-01-06] MEDS: Levothyroxine 125mcg tab NG SCH (09:18)
[2020-01-06] MEDS: Amantadine 100mg cap ORAL SCH ×2 (09:19→18:09)
[2020-01-06 10:28] LABS: ALANINE AMINOTRANSFERASE 18 U/L (12-78); ALBUMIN 2.5 G/DL (3.4-5.0); ALKALINE PHOSPHATASE 42 U/L (46-116); ASPARTATE AMINO TRANSFERASE 13 U/L (15-37); BILIRUBIN,DIRECT 0.2 MG/DL (0.0-0.3); BILIRUBIN,TOTAL 0.7 MG/DL (0.2-1.0)
--- NOTE | 2020-01-06 11:22 | Nephrology Progress Note ---
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 Respiratory distress most likely secondary to pulmonary edema and or COPD exacerbation. Hyponatremia. Obese. Hypothyroidism. Elevated d-dimer. Elevated liver enzymes Plan January 05: Stable from renal standpoint of view. Check iron panel ferritin and Depakote level today. Start 50 cc an hour D5W for rising serum sodium. January 04: No can panel done today. Renal parameters overall stable. Will check labs tomorrow. Discharge planning in process. Discussed with RN. January 03: Can panel reviewed. Renal parameters stable. Continue per consultants. Discharge planning in process. January 02: No labs done today. Stable from renal standpoint of view. January 01: Lab reviewed. Renal parameters stable. December 31: Lab reviewed. No new labs today. Renal parameters stable. Continue her consultants. December 30: Lab reviewed. Renal parameters stable. On 1 L oxygen with cannula. Patient agitated periodically. Due transfer to [facility]. December 29: Lab reviewed. Renal parameters stable. Now on Venturi mask. CO2 lower to 35. December 28: Lab reviewed: CO2 remains high: On BiPAP. Continue per pulmonary. Stable from renal standpoint of view. December 27: Lab reviewed. Continues to retain CO2. On Venturi mask. Continue per pulmonary. Stable from renal standpoint of view. December 26: Lab reviewed. ABG reviewed. Patient retaining CO2. Remains on BiPAP. Continue per pulmonary. Stable from renal standpoint of view. December 25: Lab reviewed. TSH remains high. On nonrebreathing mask. Renal parameters stable. Synthroid dose increased. IV fluids stopped. December 24: Lab reviewed. Still on BiPAP. Renal parameters stable. December 23: Lab reviewed. Remains on BiPAP. Agitated at times. ABG ordered. Serum sodium improved. December 22: Lab reviewed. On BiPAP. Stable from renal standpoint of view. Will follow serum sodium. December 21: Labs reviewed. On nonrebreather mask. D5W 50 cc an hour started for hypernatremia. Magnesium supplement given. Continue per consultants. December 20: Patient on weaning trial. No labs done today. Discussed with RN. Continue per consultants. December 19: Patient remains intubated. Renal parameters stable. Discussed with RN. Continue per consultants. December 18: Patient self extubated yesterday however was reintubated. Remains stable from renal standpoint of view. Discussed with RN. Discussed with Dr. Myers. December 17: Remains intubated. Remains full code. Failed weaning. Stable from renal standpoint of view. Continue per consultants. Discussed with DARREL [place]. December 16: Remains intubated. Full code. Weaning in process. Stable from renal standpoint of view. December 15: Remains vented. Electrolytes improved. Continue per consultants. December 14: Patient remains in ICU intubated on ventilator. Potassium low. Phosphorus low. Supplements given. Renal parameters are stable. Continue per consultants. December 13: Patient remains in ICU intubated on ventilator. Discussed with RN. Labs reviewed. Creatinine 1.3. Potassium supplements given. Mag sulfate IV 2 g given. Continue per consultants. December 12: Patient in ICU. Intubated on ventilator. Discussed with RN. Labs reviewed. Potassium supplement given. Continue per consultants. Arterial blood gas indicative of CO2 retention. Patient on the way to ICU for intubation. Continue per pulmonary management. Pulmonary support, Check 2D echocardiogram. Previous 2D echo had a 50% ejection fraction. Keep blood sugar and blood pressure in check. Thyroid panel. Monitor electrolytes and renal parameters. Afterload reduction. Diuretics Monitor serum calcium, supplements via NG tube. Per orders. Subjective ROS Limited/Unobtainable: No Constitutional: Reports: malaise, weakness Objective Objective Last 24 Hour Vital Signs Date Time Temp Pulse Resp B/P (MAP) Pulse Ox O2 Delivery O2 Flow Rate FiO2 01/06/20 08:06 14.0 01/06/20 08:05 96.4 72 20 124/47 (72) 99 01/06/20 08:00 72 01/06/20 07:58 Venturi Mask 14.0 01/06/20 07:12 100 Venturi Mask 4.0 31 01/06/20 04:00 Venturi Mask 4.0 01/06/20 04:00 97.5 66 21 124/47 (72) 97 01/06/20 04:00 61 01/06/20 04:00 4.0 01/06/20 00:00 74 01/06/20 00:00 4.0 01/06/20 00:00 Venturi Mask 4.0 01/06/20 00:00 97.9 62 20 124/40 (68) 98 01/05/20 20:00 97.3 60 18 120/47 (71) 98 01/05/20 20:00 4.0 01/05/20 20:00 Venturi Mask 4.0 01/05/20 19:21 99 Venturi Mask 4.0 31 01/05/20 19:21 65 01/05/20 16:00 Bi-pap 01/05/20 16:00 68 01/05/20 16:00 97.7 71 23 127/52 (77) 98 01/05/20 16:00 4.0 01/05/20 15:15 66 16 98 01/05/20 12:00 25 01/05/20 12:00 60 01/05/20 12:00 Bi-pap Intake and Output 01/05/20 01/06/20 19:00 07:00 Intake Total 360 ml 100 ml Balance 360 ml 100 ml Intake Oral 360 ml 100 ml # Voids 2 1 Laboratory Tests 01/05/20 16:53: POC Whole Blood Glucose 125H 01/06/20 00:32: POC Whole Blood Glucose 123H 01/06/20 05:25: Phosphorus Level 3.0, Magnesium Level 1.9, Total Bilirubin 0.7, Direct Bilirubin 0.2, Aspartate Amino Transf (AST/SGOT) 13L, Alanine Aminotransferase ( ALT/SGPT) 18, Alkaline Phosphatase 42L, Total Protein 6.0L, Albumin 2.5L 01/06/20 05:30: White Blood Count 6.1, Red Blood Count 2.90L, Hemoglobin 9.3L, Hematocrit 29.3L , Mean Corpuscular Volume 101H, Mean Corpuscular Hemoglobin 32.0H, Mean Corpuscular Hemoglobin Concent 31.7L, Red Cell Distribution Width 13.0, Platelet Count 171, Mean Platelet Volume 6.6, Neutrophils (%) (Auto) 75.2H, Lymphocytes (%) (Auto) 17.3L, Monocytes (%) (Auto) 5.8, Eosinophils (%) (Auto) 1.4, Basophils (%) (Auto) 0.3, Sodium Level 150H, Potassium Level 3.6, Chloride Level 110H, Carbon Dioxide Level 39H, Anion Gap 1L, Blood Urea Nitrogen 31H, Creatinine 0.7, Estimat Glomerular Filtration Rate > 60, Glucose Level 112H, Calcium Level 8.8 01/06/20 06:09: POC Whole Blood Glucose 93 Height (Feet): 5 Height (Inches): 7.00 Weight (Pounds): 203 General Appearance: no apparent distress, lethargic Cardiovascular: normal rate Respiratory/Chest: decreased breath sounds Abdomen: soft Bryan Ochoa MD Jan 06, 2020 11:22
--- NOTE | 2020-01-06 11:30 | Infectious Diseases Prog Note ---
Assessment/Plan Assessment/Plan IMPRESSION: COPD exacerbation, Pneumonia, COID19 X 2: negative Acute respiratory failure with hypercapnia Dementia, Parkinson, Mitral valve regurgitation, Hypertension, Hypothyroidism. MRSA carrier Leukocytosis resolved DM RECOMMENDATION: Observe off antibiotic Agree with discharge to SNF Subjective ROS Limited/Unobtainable: Yes Allergies: Coded Allergies: LITHIUM (Verified Allergy, Unknown, 02/07/19) Objective Last 24 Hour Vital Signs Date Time Temp Pulse Resp B/P (MAP) Pulse Ox O2 Delivery O2 Flow Rate FiO2 01/06/20 08:06 14.0 01/06/20 08:05 96.4 72 20 124/47 (72) 99 01/06/20 08:00 72 01/06/20 07:58 Venturi Mask 14.0 01/06/20 07:12 100 Venturi Mask 4.0 31 01/06/20 04:00 Venturi Mask 4.0 01/06/20 04:00 97.5 66 21 124/47 (72) 97 01/06/20 04:00 61 01/06/20 04:00 4.0 01/06/20 00:00 74 01/06/20 00:00 4.0 01/06/20 00:00 Venturi Mask 4.0 01/06/20 00:00 97.9 62 20 124/40 (68) 98 01/05/20 20:00 97.3 60 18 120/47 (71) 98 01/05/20 20:00 4.0 01/05/20 20:00 Venturi Mask 4.0 01/05/20 19:21 99 Venturi Mask 4.0 31 01/05/20 19:21 65 01/05/20 16:00 Bi-pap 01/05/20 16:00 68 01/05/20 16:00 97.7 71 23 127/52 (77) 98 01/05/20 16:00 4.0 01/05/20 15:15 66 16 98 01/05/20 12:00 25 01/05/20 12:00 60 01/05/20 12:00 Bi-pap Height (Feet): 5 Height (Inches): 7.00 Weight (Pounds): 203 HEENT: mucous membranes moist Respiratory/Chest: lungs clear Cardiovascular: normal rate Abdomen: soft, non tender Extremities: no edema Neurologic/Psychiatric: other - opens eyes Laboratory Tests Test 01/05/20 16:53 01/06/20 00:32 01/06/20 05:25 01/06/20 05:30 POC Whole Blood Glucose 125 MG/DL (74-106) H 123 MG/DL (74-106) H Phosphorus Level 3.0 MG/DL (2.5-4.9) Magnesium Level 1.9 MG/DL (1.8-2.4) Total Bilirubin 0.7 MG/DL (0.2-1.0) Direct Bilirubin 0.2 MG/DL (0.0-0.3) Aspartate Amino Transf (AST/SGOT) 13 U/L (15-37) L Alanine Aminotransferase (ALT/SGPT) 18 U/L (12-78) Alkaline Phosphatase 42 U/L (46-116) L Total Protein 6.0 G/DL (6.4-8.2) L Albumin 2.5 G/DL (3.4-5.0) L White Blood Count 6.1 K/UL (4.8-10.8) Red Blood Count 2.90 M/UL (4.20-5.40) L Hemoglobin 9.3 G/DL (12.0-16.0) L Hematocrit 29.3 % (37.0-47.0) L Mean Corpuscular Volume 101 FL (80-99) H Mean Corpuscular Hemoglobin 32.0 PG (27.0-31.0) H Mean Corpuscular Hemoglobin Concent 31.7 G/DL (32.0-36.0) L Red Cell Distribution Width 13.0 % (11.6-14.8) Platelet Count 171 K/UL (150-450) Mean Platelet Volume 6.6 FL (6.5-10.1) Neutrophils (%) (Auto) 75.2 % (45.0-75.0) H Lymphocytes (%) (Auto) 17.3 % (20.0-45.0) L Monocytes (%) (Auto) 5.8 % (1.0-10.0) Eosinophils (%) (Auto) 1.4 % (0.0-3.0) Basophils (%) (Auto) 0.3 % (0.0-2.0) Sodium Level 150 MMOL/L (136-145) H Potassium Level 3.6 MMOL/L (3.5-5.1) Chloride Level 110 MMOL/L (98-107) H Carbon Dioxide Level 39 MMOL/L (21-32) H Anion Gap 1 mmol/L (5-15) L Blood Urea Nitrogen 31 mg/dL (7-18) H Creatinine 0.7 MG/DL (0.55-1.30) Estimat Glomerular Filtration Rate > 60 mL/min (>60) Glucose Level 112 MG/DL (74-106) H Calcium Level 8.8 MG/DL (8.5-10.1) Test 01/06/20 06:09 POC Whole Blood Glucose 93 MG/DL (74-106) Current Medications Medications (Trade) Dose Ordered Sig/Angie Route PRN Reason Start Time Stop Time Status Last Admin Dose Admin Acetaminophen (Tylenol) 650 mg Q6H PRN GT Mild Pain (Pain Scale 1-3) 01/01/20 14:00 01/31/20 13:59 Acetaminophen (Tylenol) 1,000 mg Q6H PRN GT Moderate Pain (Pain Scale 4-6) 01/01/20 14:00 01/31/20 13:59 Amantadine HCl (Symmetrel) 100 mg TWICE A DAY ORAL 01/01/20 09:00 01/11/20 08:59 01/06/20 09:19 Aspirin (ASA) 325 mg DAILY NG 01/02/20 09:00 02/16/20 08:59 01/06/20 09:18 Atorvastatin Calcium (Lipitor) 10 mg BEDTIME NG 01/01/20 21:00 03/11/20 20:59 01/05/20 21:23 Clonidine HCl (Catapres Tab) 0.1 mg Q6H PRN NG For high BP over 160 systolic 01/01/20 14:15 03/11/20 12:30 Dextrose 1,000 ml @ 50 mls/hr Q20H IV 01/06/20 11:30 02/05/20 11:29 Dextrose (Dextrose 50%) 25 ml Q30M PRN IV Hypoglycemia 12/31/19 22:45 03/12/20 07:14 Dextrose (Dextrose 50%) 50 ml Q30M PRN IV Hypoglycemia 12/31/19 22:45 03/12/20 07:14 Divalproex Sodium (Depakote) 250 mg EVERY 12 HOURS ORAL 01/01/20 09:00 01/12/20 20:59 01/06/20 09:18 Insulin Aspart (NovoLOG) EVERY 6 HOURS SUBQ 01/01/20 00:00 03/12/20 11:59 01/03/20 17:41 Levothyroxine Sodium (Synthroid) 125 mcg DAILY NG 01/02/20 09:00 02/01/20 08:59 01/06/20 09:18 Nitroglycerin (Ntg) 0.4 mg Q5MIN X 3 DOSES PRN SL CHEST PAIN 12/31/19 22:30 01/10/20 21:44 Pantoprazole (Protonix) 40 mg EVERY 12 HOURS ORAL 01/06/20 21:00 02/05/20 20:59 Polyethylene Glycol (Miralax) 17 gm BEDTIME NG 01/01/20 21:00 01/18/20 20:59 01/04/20 21:08 Polyethylene Glycol (Miralax) 17 gm DAILYPRN PRN NG Constipation 01/01/20 19:00 01/23/20 18:59 Quetiapine Fumarate (SEROqueL) 50 mg Q12HR NG 01/01/20 21:00 02/05/20 20:59 01/06/20 09:18 Lei Chan MD Jan 06, 2020 11:30
[2020-01-06 12:00] VITALS: BP 138/33
--- NOTE | 2020-01-06 12:43 | Hematology/Onc Progress Note ---
Assessment/Plan Assessment/Plan # Lower extremity edema in setting of elevated ddimer --> lower ext duplex ordered to r/o dvt-->neg for dvt --> lovenox sq has been started --> low threshold for v/q or cta r/o pe # Anemia of chronic disease --> hgb 11-->10.-->9->11.9-->10.8->7.8->11->10.8->10.2-->9.6->9.5->10.8-->12--> 10->10.3->11>9.3 --> no e/o hemolysis --> no bleeding reported --> smear reviewed --> no go bleeding --> asa to continue # Leukocytosis r/o infection, likely steriods related --> wbc trend 10==>12-->14->15-->12-->14 --> steriods off --> abx off # Respiratory failure with copd exacerbation likely --> pulm toilet --> breathing rx --> steroids prn basis --> pulm eval ---> ABX per is on zosyn->now off # 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 ( combination of moderate aortic regurgitation and severe mitral regurgitation) --> diuresis as per cards --> lasix last time # Severe ascending aortic dilatation --> per cards, Dr Davies # Hypertension # Parkinson disease # Hyperlipidemia # Hypothyroidism # Dementia # Obesity # Schizophrenia --> as per [facility] --> restraints # Dvt ppx lovenox sq/scd's Appreciate [employer] fusion consultant care and alexei Rn Subjective Constitutional: Denies: no symptoms, chills, fever, malaise, weakness, other HEENT: Denies: no symptoms, eye pain, blurred vision, tearing, double vision, ear pain, ear discharge, nose pain, nose congestion, throat pain, throat swelling, mouth pain, mouth swelling, other Cardiovascular: Denies: no symptoms, chest pain, edema, irregular heart rate, lightheadedness, palpitations, syncope, other Respiratory: Denies: no symptoms, cough, shortness of breath, SOB with excertion, SOB at rest, sputum, wheezing, other Gastrointestinal/Abdominal: Denies: no symptoms, abdomen distended, abdominal pain, black stools, tarry stools, blood in stool, constipated, diarrhea, difficulty swallowing, nausea, poor appetite, poor fluid intake, rectal bleeding , vomiting, other Genitourinary: Denies: no symptoms, burning, discharge, frequency, flank pain, hematuria, incontinence, pain, urgency, other Neurologic/Psychiatric: Denies: no symptoms, anxiety, depressed, emotional problems, headache, numbness, paresthesia, pre-existing deficit, seizure, tingling, tremors, weakness, other Endocrine: Denies: no symptoms, excessive sweating, flushing, intolerance to cold, intolerance to heat, increased hunger, increased thirst, increased urine, unexplained weight gain, unexplained weight loss, other Allergies: Coded Allergies: LITHIUM (Verified Allergy, Unknown, 02/07/19) Subjective 12/12 labs are reviewed, intubated, with og, somewhat responsive, alexei rn 12/13 labs noted, hgb 7.8, tfs ok to start per gi 12/15 icu, restraints, no acute events, hep panel negative, sedated 12/16 no bleeding, in the icu, on abx, in restarints, sleepy, vent 12/17 is on vent, also is on abx, awake, with ogt 12/18 ng placed, hgb 9.6, no bleeding, no night sweats 12/19 labs reviewed, sedated, on vent, nob leeding, meds reviewed 12/20 remains on vent, audra bleeding, meds reviewed, no night sweats 12/22 hgb 9.5, to get zosyn x 1 more day, no night sweats meds reviewed 12/23 labs noted, no bleeding, with fm, no bleeding or night sweats 12/24 no bleeding, labs noted, no night sweats hgb 10, no hemolysis 12/25 remains fatigued, fm, labs are still pending from am 12/26 restraints, v mask, cxr reviewed 12/27 labs reviewed, no bleeding, hgb 10.8, no hemolysis on FM 12/29 remains disoriented on bipap and fm as needed, hgb better 12/30 wbc 15k, no bleeding, alexei rn, no night sweats off abx 12/31 wbc remains elevated, arousable, no bleeding, on fm 01/01 meds noted, labs reviewed, no bleeding on exam 01/02 refusing labs this am, no bleeding, meds noted, no hemolysis 01/03 no bleeding, meds noted, no night sweats, cbc pend 01/04 labs noted, no bleeding, cbc has been ordered for am, seen by gi, renal 01/05 asleep, labs noted, meds revoewed.no bleeding Objective Objective Current Medications Medications (Trade) Dose Ordered Sig/Angie Route PRN Reason Start Time Stop Time Status Last Admin Dose Admin Acetaminophen (Tylenol) 650 mg Q6H PRN GT Mild Pain (Pain Scale 1-3) 01/01/20 14:00 01/31/20 13:59 Acetaminophen (Tylenol) 1,000 mg Q6H PRN GT Moderate Pain (Pain Scale 4-6) 01/01/20 14:00 01/31/20 13:59 Amantadine HCl (Symmetrel) 100 mg TWICE A DAY ORAL 01/01/20 09:00 01/11/20 08:59 01/06/20 09:19 Aspirin (ASA) 325 mg DAILY NG 01/02/20 09:00 02/16/20 08:59 01/06/20 09:18 Atorvastatin Calcium (Lipitor) 10 mg BEDTIME NG 01/01/20 21:00 03/11/20 20:59 01/05/20 21:23 Clonidine HCl (Catapres Tab) 0.1 mg Q6H PRN NG For high BP over 160 systolic 01/01/20 14:15 03/11/20 12:30 Dextrose 1,000 ml @ 50 mls/hr Q20H IV 01/06/20 11:30 02/05/20 11:29 Dextrose (Dextrose 50%) 25 ml Q30M PRN IV Hypoglycemia 12/31/19 22:45 03/12/20 07:14 Dextrose (Dextrose 50%) 50 ml Q30M PRN IV Hypoglycemia 12/31/19 22:45 03/12/20 07:14 Divalproex Sodium (Depakote) 250 mg EVERY 12 HOURS ORAL 01/01/20 09:00 01/12/20 20:59 01/06/20 09:18 Insulin Aspart (NovoLOG) EVERY 6 HOURS SUBQ 01/01/20 00:00 03/12/20 11:59 7/23/20 17:41 Levothyroxine Sodium (Synthroid) 125 mcg DAILY NG 01/02/20 09:00 02/01/20 08:59 01/06/20 09:18 Nitroglycerin (Ntg) 0.4 mg Q5MIN X 3 DOSES PRN SL CHEST PAIN 12/31/19 22:30 01/10/20 21:44 Pantoprazole (Protonix) 40 mg EVERY 12 HOURS ORAL 01/06/20 21:00 02/05/20 20:59 Polyethylene Glycol (Miralax) 17 gm BEDTIME NG 01/01/20 21:00 01/18/20 20:59 01/04/20 21:08 Polyethylene Glycol (Miralax) 17 gm DAILYPRN PRN NG Constipation 01/01/20 19:00 01/23/20 18:59 Quetiapine Fumarate (SEROqueL) 50 mg Q12HR NG 01/01/20 21:00 02/05/20 20:59 01/06/20 09:18 Last 24 Hour Vital Signs Date Time Temp Pulse Resp B/P (MAP) Pulse Ox O2 Delivery O2 Flow Rate FiO2 01/06/20 12:33 4.0 01/06/20 12:00 75 01/06/20 08:06 14.0 01/06/20 08:05 96.4 72 20 124/47 (72) 99 01/06/20 08:00 72 01/06/20 07:58 Venturi Mask 14.0 01/06/20 07:12 100 Venturi Mask 4.0 31 01/06/20 04:00 Venturi Mask 4.0 01/06/20 04:00 97.5 66 21 124/47 (72) 97 01/06/20 04:00 61 01/06/20 04:00 4.0 01/06/20 00:00 74 01/06/20 00:00 4.0 01/06/20 00:00 Venturi Mask 4.0 01/06/20 00:00 97.9 62 20 124/40 (68) 98 01/05/20 20:00 97.3 60 18 120/47 (71) 98 01/05/20 20:00 4.0 01/05/20 20:00 Venturi Mask 4.0 01/05/20 19:21 99 Venturi Mask 4.0 31 01/05/20 19:21 65 01/05/20 16:00 Bi-pap 01/05/20 16:00 68 01/05/20 16:00 97.7 71 23 127/52 (77) 98 01/05/20 16:00 4.0 01/05/20 15:15 66 16 98 01/05/20 12:00 25 01/05/20 12:00 60 01/05/20 12:00 Bi-pap 01/05/20 10:43 63 15 99 30 01/05/20 08:00 Bi-pap 01/05/20 08:00 97.1 66 17 110/43 (65) 98 01/05/20 08:00 79 01/05/20 08:00 25 01/05/20 06:39 71 14 97 30 01/05/20 06:39 97 Bi-Pap 30 01/05/20 04:00 97.7 68 19 146/39 (74) 96 01/05/20 04:00 Bi-pap 01/05/20 04:00 25 01/05/20 03:32 68 01/05/20 03:25 75 16 100 25 01/05/20 01:38 30 01/05/20 01:37 78 21 98 30 01/05/20 00:00 88 01/05/20 00:00 97.9 78 20 124/41 (68) 98 01/05/20 00:00 Venturi Mask 5.0 01/04/20 20:00 97.7 86 20 135/87 (103) 98 01/04/20 20:00 Venturi Mask 5.0 01/04/20 19:27 86 01/04/20 19:08 96 Venturi Mask 4.0 31 01/04/20 16:00 Nasal Cannula 2.0 01/04/20 15:27 83 Intake and Output 01/05/20 01/06/20 19:00 07:00 Intake Total 360 ml 100 ml Balance 360 ml 100 ml Intake Oral 360 ml 100 ml # Voids 2 1 Labs Test 01/03/20 17:07 01/03/20 23:05 01/04/20 06:03 01/04/20 09:20 POC Whole Blood Glucose 239 MG/DL (74-106) 93 MG/DL (74-106) 99 MG/DL (74-106) Sodium Level 149 MMOL/L (136-145) Potassium Level 3.8 MMOL/L (3.5-5.1) Chloride Level 110 MMOL/L (98-107) Carbon Dioxide Level 40 MMOL/L (21-32) Anion Gap 0 mmol/L (5-15) Blood Urea Nitrogen 27 mg/dL (7-18) Creatinine 0.8 MG/DL (0.55-1.30) Estimat Glomerular Filtration Rate > 60 mL/min (>60) Glucose Level 107 MG/DL (74-106) Calcium Level 8.9 MG/DL (8.5-10.1) Phosphorus Level 2.5 MG/DL (2.5-4.9) Magnesium Level 1.8 MG/DL (1.8-2.4) Total Bilirubin 0.6 MG/DL (0.2-1.0) Aspartate Amino Transf (AST/SGOT) 9 U/L (15-37) Alanine Aminotransferase (ALT/SGPT) 21 U/L (12-78) Alkaline Phosphatase 45 U/L (46-116) Total Protein 6.6 G/DL (6.4-8.2) Albumin 2.9 G/DL (3.4-5.0) Globulin 3.7 g/dL Albumin/Globulin Ratio 0.8 (1.0-2.7) Test 01/04/20 10:21 01/04/20 12:49 01/04/20 16:35 01/05/20 16:53 Arterial Blood pH 7.403 (7.350-7.450) Arterial Blood Partial Pressure CO2 64.9 mmHg (35.0-45.0) Arterial Blood Partial Pressure O2 68.8 mmHg (75.0-100.0) Arterial Blood HCO3 39.6 mmol/L (22.0-26.0) Arterial Blood Oxygen Saturation 93.3 % (95-100) Arterial Blood Base Excess 12.7 (-2-2) Raphael Test Positive POC Whole Blood Glucose 98 MG/DL (74-106) 127 MG/DL (74-106) 125 MG/DL (74-106) Test 01/06/20 00:32 01/06/20 05:25 01/06/20 05:30 01/06/20 06:09 POC Whole Blood Glucose 123 MG/DL (74-106) 93 MG/DL (74-106) Phosphorus Level 3.0 MG/DL (2.5-4.9) Magnesium Level 1.9 MG/DL (1.8-2.4) Total Bilirubin 0.7 MG/DL (0.2-1.0) Direct Bilirubin 0.2 MG/DL (0.0-0.3) Aspartate Amino Transf (AST/SGOT) 13 U/L (15-37) Alanine Aminotransferase (ALT/SGPT) 18 U/L (12-78) Alkaline Phosphatase 42 U/L (46-116) Total Protein 6.0 G/DL (6.4-8.2) Albumin 2.5 G/DL (3.4-5.0) White Blood Count 6.1 K/UL (4.8-10.8) Red Blood Count 2.90 M/UL (4.20-5.40) Hemoglobin 9.3 G/DL (12.0-16.0) Hematocrit 29.3 % (37.0-47.0) Mean Corpuscular Volume 101 FL (80-99) Mean Corpuscular Hemoglobin 32.0 PG (27.0-31.0) Mean Corpuscular Hemoglobin Concent 31.7 G/DL (32.0-36.0) Red Cell Distribution Width 13.0 % (11.6-14.8) Platelet Count 171 K/UL (150-450) Mean Platelet Volume 6.6 FL (6.5-10.1) Neutrophils (%) (Auto) 75.2 % (45.0-75.0) Lymphocytes (%) (Auto) 17.3 % (20.0-45.0) Monocytes (%) (Auto) 5.8 % (1.0-10.0) Eosinophils (%) (Auto) 1.4 % (0.0-3.0) Basophils (%) (Auto) 0.3 % (0.0-2.0) Sodium Level 150 MMOL/L (136-145) Potassium Level 3.6 MMOL/L (3.5-5.1) Chloride Level 110 MMOL/L (98-107) Carbon Dioxide Level 39 MMOL/L (21-32) Anion Gap 1 mmol/L (5-15) Blood Urea Nitrogen 31 mg/dL (7-18) Creatinine 0.7 MG/DL (0.55-1.30) Estimat Glomerular Filtration Rate > 60 mL/min (>60) Glucose Level 112 MG/DL (74-106) Calcium Level 8.8 MG/DL (8.5-10.1) Ferritin 280 NG/ML (8-388) Valproic Acid (Depakene) Level 6 MCG/ML (50-100) Height (Feet): 5 Height (Inches): 7.00 Weight (Pounds): 203 Objective Vitals: reviewed General: NAD HEENT: nc, at ++ngt, facemask+ Neck: supple Chest: decreased breath sounds bilaterally Cardiovascular: RRR, no s3, s4 Abdomen: soft, nontender, nd Extremities: 1-2 + edema, scd's Neuro: nonverbal : iman+ Frank Escobar MD Jan 06, 2020 12:43
--- NOTE | 2020-01-06 12:49 | Pulmonology Progress Note ---
Subjective ROS Limited/Unobtainable: No Constitutional: Denies: fever HEENT: Repors: no symptoms Respiratory: Reports: no symptoms Cardiovascular: Reports: no symptoms Gastrointestinal/Abdominal: Reports: diarrhea Genitourinary: Reports: no symptoms Allergies: Coded Allergies: LITHIUM (Verified Allergy, Unknown, 02/07/19) All Systems: reviewed and negative except above Objective Last 24 Hour Vital Signs Date Time Temp Pulse Resp B/P (MAP) Pulse Ox O2 Delivery O2 Flow Rate FiO2 01/06/20 12:33 4.0 01/06/20 12:00 75 01/06/20 08:06 14.0 01/06/20 08:05 96.4 72 20 124/47 (72) 99 01/06/20 08:00 72 01/06/20 07:58 Venturi Mask 14.0 01/06/20 07:12 100 Venturi Mask 4.0 31 01/06/20 04:00 Venturi Mask 4.0 01/06/20 04:00 97.5 66 21 124/47 (72) 97 01/06/20 04:00 61 01/06/20 04:00 4.0 01/06/20 00:00 74 01/06/20 00:00 4.0 01/06/20 00:00 Venturi Mask 4.0 01/06/20 00:00 97.9 62 20 124/40 (68) 98 01/05/20 20:00 97.3 60 18 120/47 (71) 98 01/05/20 20:00 4.0 01/05/20 20:00 Venturi Mask 4.0 01/05/20 19:21 99 Venturi Mask 4.0 31 01/05/20 19:21 65 01/05/20 16:00 Bi-pap 01/05/20 16:00 68 01/05/20 16:00 97.7 71 23 127/52 (77) 98 01/05/20 16:00 4.0 01/05/20 15:15 66 16 98 Intake and Output 01/05/20 01/06/20 19:00 07:00 Intake Total 360 ml 100 ml Balance 360 ml 100 ml Intake Oral 360 ml 100 ml # Voids 2 1 General Appearance: no acute distress Respiratory: chest wall non-tender, lungs clear Cardiovascular: normal peripheral pulses, normal rate Abdomen: normal bowel sounds Laboratory Tests 01/05/20 16:53: POC Whole Blood Glucose 125H 01/06/20 00:32: POC Whole Blood Glucose 123H 01/06/20 05:25: Phosphorus Level 3.0, Magnesium Level 1.9, Total Bilirubin 0.7, Direct Bilirubin 0.2, Aspartate Amino Transf (AST/SGOT) 13L, Alanine Aminotransferase ( ALT/SGPT) 18, Alkaline Phosphatase 42L, Total Protein 6.0L, Albumin 2.5L 01/06/20 05:30: White Blood Count 6.1, Red Blood Count 2.90L, Hemoglobin 9.3L, Hematocrit 29.3L , Mean Corpuscular Volume 101H, Mean Corpuscular Hemoglobin 32.0H, Mean Corpuscular Hemoglobin Concent 31.7L, Red Cell Distribution Width 13.0, Platelet Count 171, Mean Platelet Volume 6.6, Neutrophils (%) (Auto) 75.2H, Lymphocytes (%) (Auto) 17.3L, Monocytes (%) (Auto) 5.8, Eosinophils (%) (Auto) 1.4, Basophils (%) (Auto) 0.3, Sodium Level 150H, Potassium Level 3.6, Chloride Level 110H, Carbon Dioxide Level 39H, Anion Gap 1L, Blood Urea Nitrogen 31H, Creatinine 0.7, Estimat Glomerular Filtration Rate > 60, Glucose Level 112H, Calcium Level 8.8, Iron Level [Pending], Unsaturated Iron Binding [Pending], Ferritin 280, Valproic Acid (Depakene) Level 6L 01/06/20 06:09: POC Whole Blood Glucose 93 Current Medications Medications (Trade) Dose Ordered Sig/Angie Route PRN Reason Start Time Stop Time Status Last Admin Dose Admin Acetaminophen (Tylenol) 650 mg Q6H PRN GT Mild Pain (Pain Scale 1-3) 01/01/20 14:00 01/31/20 13:59 Acetaminophen (Tylenol) 1,000 mg Q6H PRN GT Moderate Pain (Pain Scale 4-6) 01/01/20 14:00 01/31/20 13:59 Amantadine HCl (Symmetrel) 100 mg TWICE A DAY ORAL 01/01/20 09:00 01/11/20 08:59 01/06/20 09:19 Aspirin (ASA) 325 mg DAILY NG 01/02/20 09:00 9/5/20 08:59 01/06/20 09:18 Atorvastatin Calcium (Lipitor) 10 mg BEDTIME NG 01/01/20 21:00 03/11/20 20:59 01/05/20 21:23 Clonidine HCl (Catapres Tab) 0.1 mg Q6H PRN NG For high BP over 160 systolic 01/01/20 14:15 03/11/20 12:30 Dextrose 1,000 ml @ 50 mls/hr Q20H IV 01/06/20 11:30 02/05/20 11:29 Dextrose (Dextrose 50%) 25 ml Q30M PRN IV Hypoglycemia 12/31/19 22:45 03/12/20 07:14 Dextrose (Dextrose 50%) 50 ml Q30M PRN IV Hypoglycemia 12/31/19 22:45 03/12/20 07:14 Divalproex Sodium (Depakote) 250 mg EVERY 12 HOURS ORAL 01/01/20 09:00 01/12/20 20:59 01/06/20 09:18 Insulin Aspart (NovoLOG) EVERY 6 HOURS SUBQ 01/01/20 00:00 03/12/20 11:59 01/03/20 17:41 Levothyroxine Sodium (Synthroid) 125 mcg DAILY NG 01/02/20 09:00 02/01/20 08:59 01/06/20 09:18 Nitroglycerin (Ntg) 0.4 mg Q5MIN X 3 DOSES PRN SL CHEST PAIN 12/31/19 22:30 01/10/20 21:44 Pantoprazole (Protonix) 40 mg EVERY 12 HOURS ORAL 01/06/20 21:00 02/05/20 20:59 Polyethylene Glycol (Miralax) 17 gm BEDTIME NG 01/01/20 21:00 01/18/20 20:59 01/04/20 21:08 Polyethylene Glycol (Miralax) 17 gm DAILYPRN PRN NG Constipation 01/01/20 19:00 01/23/20 18:59 Quetiapine Fumarate (SEROqueL) 50 mg Q12HR NG 01/01/20 21:00 02/05/20 20:59 01/06/20 09:18 Assessment/Plan Assessment/Plan Pulmonary Progress Note Subjective Interval Events: Extubated 12/21/19; on Bipap PRN, COVID-19 negative x 2, on Ventimask Constitutional: Denies: fever HEENT: Repors: no symptoms Respiratory: Reports: no symptoms Cardiovascular: Reports: no symptoms Gastrointestinal/Abdominal: Reports: diarrhea Genitourinary: Reports: no symptoms Allergies: Coded Allergies: LITHIUM (Verified Allergy, Unknown, 02/07/19) Objective Vital Signs Noted General Appearance: no acute distress, on BiPAP Respiratory: chest wall non-tender, lungs clear Cardiovascular: normal peripheral pulses, normal rate, no edema Abdomen: soft, non tender, no distension, normal bowel sounds Laboratory Tests Noted Assessment/Plan IMPRESSION: 1. Respiratory failure. Improved; now on Bipap PRN, VM 2. Has healthcare-associated pneumonia 3. Psych disorder. 4. Obesity. 5. Hypertension. 6. Hypernatremia PLAN: Continue current antibiotics Bipap PRN Respiratory care - HHN On Seroquel Has diuresed well Jean Mccann MD Jan 06, 2020 12:49
[2020-01-06] MEDS: Ipratropium 0.02% Inh Soln 2.5ml UD HHN SCH ×2 (13:08→20:03)
[2020-01-06 16:00] VITALS: BP 128/48
--- NOTE | 2020-01-06 19:37 | NUR ---
NURSE NOTES: Received report from Jerad RN, pt. in bed awake, appears to be alert to name- able to follow simple commands, no signs or symptoms of acute cardiac or respiratory distress noted, bed alarm on, side rails up x's3 and safety brakes engaged, call light within easy reach, HOB elevated, isolation precautions observed, pt. appears to be tolerating current venturi mas settings- 4L at Fio2 at 40%- no distress noted, pt. appears clean and dry, left hand 24 G IV intact and patent running D5W at 50cc/hr- safety measures continued, will continue with plan of care.
[2020-01-06 20:00] VITALS: BP 121/87
[2020-01-06] MEDS: Miralax 17gm pkt NG SCH (20:13)
--- NOTE | 2020-01-06 20:38 | NUR ---
NURSE NOTES: full bed bath given- linen changed- pt. soiled- oral care provided- will continue to monitor pt.
--- NOTE | 2020-01-06 21:01 | NUR ---
NURSE NOTES: pt. appears to be de sating to current Venturi mask settings- RT at bedside- suction provided- settings changed to 14L Fio2 at 55%- will continue to monitor pt. and with plan of care. Pt. remains stable
--- NOTE | 2020-01-06 21:15 | General Progress Note ---
Assessment/Plan Problem List: (1) Dyspnea ICD Codes: R06.00 - Dyspnea, unspecified SNOMED: 146321699 (2) Hypothyroidism ICD Codes: E03.9 - Hypothyroidism, unspecified SNOMED: 90080155 (3) Obese ICD Codes: E66.9 - Obesity, unspecified SNOMED: 427696078, 149951468 (4) Psychosis ICD Codes: F29 - Unspecified psychosis not due to a substance or known physiological condition SNOMED: 31449255 (5) Respiratory failure ICD Codes: J96.90 - Respiratory failure, unspecified, unspecified whether with hypoxia or hypercapnia SNOMED: 976701226 (6) Respiratory distress ICD Codes: R06.03 - Acute respiratory distress SNOMED: 031999835 (7) Dyspnea ICD Codes: R06.00 - Dyspnea, unspecified SNOMED: 599814684 (8) Pneumonia ICD Codes: J18.9 - Pneumonia, unspecified organism SNOMED: 610053444 (9) Acute and chronic respiratory failure ICD Codes: J96.20 - Acute and chronic respiratory failure, unspecified whether with hypoxia or hypercapnia SNOMED: 69173430 (10) Diabetes mellitus type 2 in nonobese ICD Codes: E11.9 - Type 2 diabetes mellitus without complications SNOMED: 714674434 (11) CHF (congestive heart failure) ICD Codes: I50.9 - Heart failure, unspecified SNOMED: 90294190 Qualifiers: Qualified Codes: I50.9 - Heart failure, unspecified (12) Hypoxia ICD Codes: R09.02 - Hypoxemia SNOMED: 662674896 (13) Elevated d-dimer ICD Codes: R79.89 - Other specified abnormal findings of blood chemistry SNOMED: 546295040 (14) Schizophrenia ICD Codes: F20.9 - Schizophrenia, unspecified SNOMED: 27010600 (15) Parkinson disease ICD Codes: G20 - Parkinson's disease SNOMED: 48753031 Status: progressing, unchanged Assessment/Plan: chf no wheezing needs placement hypernatremia s/p bipap Subjective ROS Limited/Unobtainable: Yes Allergies: Coded Allergies: LITHIUM (Verified Allergy, Unknown, 02/07/19) Objective Last 24 Hour Vital Signs Date Time Temp Pulse Resp B/P (MAP) Pulse Ox O2 Delivery O2 Flow Rate FiO2 01/06/20 21:02 14.0 55 01/06/20 20:05 99 Venturi Mask 4.0 31 01/06/20 20:03 75 22 100 Venturi Mask 4.0 31 74 22 99 01/06/20 20:00 4.0 40 01/06/20 20:00 97.9 78 18 121/87 (98) 100 01/06/20 20:00 Venturi Mask 14.0 01/06/20 19:32 80 01/06/20 16:00 73 01/06/20 16:00 Venturi Mask 14.0 01/06/20 16:00 97.7 71 19 128/48 (74) 98 01/06/20 16:00 4.0 01/06/20 13:04 75 22 99 Venturi Mask 4.0 31 70 17 98 01/06/20 12:33 4.0 01/06/20 12:00 75 01/06/20 12:00 Venturi Mask 14.0 01/06/20 12:00 97.5 82 18 138/33 (68) 92 01/06/20 08:06 4.0 01/06/20 08:05 96.4 72 20 124/47 (72) 99 01/06/20 08:00 72 01/06/20 07:58 Venturi Mask 14.0 01/06/20 07:12 100 Venturi Mask 4.0 31 01/06/20 04:00 Venturi Mask 4.0 01/06/20 04:00 97.5 66 21 124/47 (72) 97 01/06/20 04:00 61 01/06/20 04:00 4.0 01/06/20 00:00 74 01/06/20 00:00 4.0 01/06/20 00:00 Venturi Mask 4.0 01/06/20 00:00 97.9 62 20 124/40 (68) 98 Intake and Output 01/05/20 01/06/20 19:00 07:00 Intake Total 360 ml 100 ml Balance 360 ml 100 ml Intake Oral 360 ml 100 ml # Voids 2 1 Laboratory Tests 01/06/20 00:32: POC Whole Blood Glucose 123H 01/06/20 05:25: Phosphorus Level 3.0, Magnesium Level 1.9, Total Bilirubin 0.7, Direct Bilirubin 0.2, Aspartate Amino Transf (AST/SGOT) 13L, Alanine Aminotransferase ( ALT/SGPT) 18, Alkaline Phosphatase 42L, Total Protein 6.0L, Albumin 2.5L 01/06/20 05:30: White Blood Count 6.1, Red Blood Count 2.90L, Hemoglobin 9.3L, Hematocrit 29.3L , Mean Corpuscular Volume 101H, Mean Corpuscular Hemoglobin 32.0H, Mean Corpuscular Hemoglobin Concent 31.7L, Red Cell Distribution Width 13.0, Platelet Count 171, Mean Platelet Volume 6.6, Neutrophils (%) (Auto) 75.2H, Lymphocytes (%) (Auto) 17.3L, Monocytes (%) (Auto) 5.8, Eosinophils (%) (Auto) 1.4, Basophils (%) (Auto) 0.3, Sodium Level 150H, Potassium Level 3.6, Chloride Level 110H, Carbon Dioxide Level 39H, Anion Gap 1L, Blood Urea Nitrogen 31H, Creatinine 0.7, Estimat Glomerular Filtration Rate > 60, Glucose Level 112H, Calcium Level 8.8, Iron Level [Pending], Unsaturated Iron Binding [Pending], Ferritin 280, Valproic Acid (Depakene) Level 6L 01/06/20 06:09: POC Whole Blood Glucose 93 Height (Feet): 5 Height (Inches): 7.00 Weight (Pounds): 203 Dani Perera MD Jan 06, 2020 21:15
--- NOTE | 2020-01-06 23:24 | NUR ---
NURSE NOTES: pt. titrated down to 4L Fio2 at 31%- on venturi mask- appears to be sating well at 98%- will continue to monitor pt. and with plan of care.
[2020-01-07] VITALS (7 sets, daily range): BP systolic 107–129; BP diastolic 34–78
[2020-01-07] MEDS: Ipratropium 0.02% Inh Soln 2.5ml UD HHN SCH ×4 (01:03→19:03)
[2020-01-07 04:53] LABS: BASOPHILS % (AUTO) 0.4 % (0.0-2.0); EOSINOPHILS % (AUTO) 1.7 % (0.0-3.0); HEMATOCRIT 28.5 % (37.0-47.0); HEMOGLOBIN 9.3 G/DL (12.0-16.0); LYMPHOCYTES % (AUTO) 20.3 % (20.0-45.0); MEAN CORPUSCULAR VOLUME 99 FL (80-99); MONOCYTES % (AUTO) 6.2 % (1.0-10.0); NEUTROPHILS % (AUTO) 71.4 % (45.0-75.0); PLATELET COUNT 159 K/UL (150-450); RED BLOOD COUNT 2.87 M/UL (4.20-5.40); RED CELL DISTRIBUTION WIDTH 12.9 % (11.6-14.8); WHITE BLOOD COUNT 6.2 K/UL (4.8-10.8)
[2020-01-07 04:56] LABS: % IRON SATURATION 44 % (15-50); IRON 84 ug/dL (50-175); TOTAL IRON BINDING CAPACITY 190 ug/dL (250-450)
[2020-01-07 04:58] LABS: ANION GAP -1 mmol/L (5-15); BLOOD UREA NITROGEN 31 mg/dL (7-18); CALCIUM 8.6 MG/DL (8.5-10.1); CARBON DIOXIDE 40 MMOL/L (21-32); CHLORIDE 108 MMOL/L (98-107); CREATININE 0.8 MG/DL (0.55-1.30); POTASSIUM 3.7 MMOL/L (3.5-5.1); SODIUM 148 MMOL/L (136-145)
--- NOTE | 2020-01-07 05:00 | NUR ---
NURSE NOTES: bed bath given- repositioned and turned pt.- oral care provided, will continue to monitor pt. and with plan of care.
[2020-01-07] MEDS: NovoLOG Insulin Flexpen SUBQ SCH ×3 (05:19→17:12)
--- NOTE | 2020-01-07 06:34 | General Progress Note ---
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 - Other specified diabetes mellitus without complications SNOMED: 517946660 (2) Parkinson disease ICD Codes: G20 - Parkinson's disease SNOMED: 76818053 (3) Schizophrenia ICD Codes: F20.9 - Schizophrenia, unspecified SNOMED: 52621982 (4) Hypertension ICD Codes: I10 - Essential (primary) hypertension SNOMED: 96648961 (5) Respiratory failure ICD Codes: J96.90 - Respiratory failure, unspecified, unspecified whether with hypoxia or hypercapnia SNOMED: 922610190 (6) Hypothyroidism ICD Codes: E03.9 - Hypothyroidism, unspecified SNOMED: 84739908 (7) Diabetes mellitus type 2 in nonobese ICD Codes: E11.9 - Type 2 diabetes mellitus without complications SNOMED: 469365689 Status: progressing, unchanged Assessment/Plan: continue Levothyroxine 125 mcg daily continue Novolog sliding scale every 6 hours hypoglycemia protocol in order Subjective ROS Limited/Unobtainable: Yes Allergies: Coded Allergies: LITHIUM (Verified Allergy, Unknown, 02/07/19) Subjective events noted glucose values are stable Item Value Date Time Bedside Blood Glucose 102 mg/dl 01/07/20 0519 Bedside Blood Glucose 104 mg/dl 01/06/20 2324 Bedside Blood Glucose 135 mg/dl H 01/06/20 1800 Bedside Blood Glucose 122 mg/dl H 01/06/20 1200 Bedside Blood Glucose 93 mg/dl 01/06/20 0600 Bedside Blood Glucose 123 mg/dl H 01/06/20 0000 Objective Last 24 Hour Vital Signs Date Time Temp Pulse Resp B/P (MAP) Pulse Ox O2 Delivery O2 Flow Rate FiO2 01/07/20 04:00 4.0 31 01/07/20 04:00 Venturi Mask 14.0 01/07/20 03:55 97.8 69 18 118/44 (68) 99 01/07/20 03:28 68 01/07/20 01:04 76 17 100 Venturi Mask 4.0 31 74 18 100 01/07/20 00:00 4.0 31 01/07/20 00:00 Venturi Mask 14.0 01/07/20 00:00 97.6 74 18 129/78 (95) 100 01/06/20 23:30 74 01/06/20 21:02 14.0 55 7/26/20 20:05 99 Venturi Mask 4.0 31 01/06/20 20:03 75 22 100 Venturi Mask 4.0 31 74 22 99 01/06/20 20:00 4.0 40 01/06/20 20:00 97.9 78 18 121/87 (98) 100 01/06/20 20:00 Venturi Mask 14.0 01/06/20 19:32 80 01/06/20 16:00 73 01/06/20 16:00 Venturi Mask 14.0 01/06/20 16:00 97.7 71 19 128/48 (74) 98 01/06/20 16:00 4.0 01/06/20 13:04 75 22 99 Venturi Mask 4.0 31 70 17 98 01/06/20 12:33 4.0 01/06/20 12:00 75 01/06/20 12:00 Venturi Mask 14.0 01/06/20 12:00 97.5 82 18 138/33 (68) 92 01/06/20 08:06 4.0 01/06/20 08:05 96.4 72 20 124/47 (72) 99 01/06/20 08:00 72 01/06/20 07:58 Venturi Mask 14.0 01/06/20 07:12 100 Venturi Mask 4.0 31 Intake and Output 01/06/20 01/07/20 19:00 07:00 Intake Total 770 ml 505 ml Balance 770 ml 505 ml Intake Oral 720 ml IV Total 50 ml 505 ml # Voids 2 Laboratory Tests 01/06/20 23:20: POC Whole Blood Glucose [Pending] 01/07/20 03:49: White Blood Count 6.2, Red Blood Count 2.87L, Hemoglobin 9.3L, Hematocrit 28.5L , Mean Corpuscular Volume 99, Mean Corpuscular Hemoglobin 32.5H, Mean Corpuscular Hemoglobin Concent 32.8, Red Cell Distribution Width 12.9, Platelet Count 159, Mean Platelet Volume 5.8L, Neutrophils (%) (Auto) 71.4, Lymphocytes ( %) (Auto) 20.3, Monocytes (%) (Auto) 6.2, Eosinophils (%) (Auto) 1.7, Basophils (%) (Auto) 0.4, Sodium Level 148H, Potassium Level 3.7, Chloride Level 108H, Carbon Dioxide Level 40H, Anion Gap -1L, Blood Urea Nitrogen 31H, Creatinine 0.8 , Estimat Glomerular Filtration Rate > 60, Glucose Level 110H, Calcium Level 8.6 , Iron Level 84, Total Iron Binding Capacity 190L, Percent Iron Saturation 44, Unsaturated Iron Binding 106L 01/07/20 05:09: POC Whole Blood Glucose [Pending] Height (Feet): 5 Height (Inches): 7.00 Weight (Pounds): 203 General Appearance: no apparent distress Cardiovascular: normal rate Respiratory/Chest: decreased breath sounds Abdomen: normal bowel sounds Objective Current Medications Medications (Trade) Dose Ordered Sig/Angie Route PRN Reason Start Time Stop Time Status Last Admin Dose Admin Acetaminophen (Tylenol) 650 mg Q6H PRN GT Mild Pain (Pain Scale 1-3) 01/01/20 14:00 01/31/20 13:59 Acetaminophen (Tylenol) 1,000 mg Q6H PRN GT Moderate Pain (Pain Scale 4-6) 01/01/20 14:00 01/31/20 13:59 Amantadine HCl (Symmetrel) 100 mg TWICE A DAY ORAL 01/01/20 09:00 01/11/20 08:59 01/06/20 18:09 Aspirin (ASA) 325 mg DAILY NG 01/02/20 09:00 02/16/20 08:59 01/06/20 09:18 Atorvastatin Calcium (Lipitor) 10 mg BEDTIME NG 01/01/20 21:00 03/11/20 20:59 01/06/20 20:13 Clonidine HCl (Catapres Tab) 0.1 mg Q6H PRN NG For high BP over 160 systolic 01/01/20 14:15 03/11/20 12:30 Dextrose 1,000 ml @ 50 mls/hr Q20H IV 01/06/20 11:30 02/05/20 11:29 01/07/20 03:55 Dextrose (Dextrose 50%) 25 ml Q30M PRN IV Hypoglycemia 12/31/19 22:45 03/12/20 07:14 Dextrose (Dextrose 50%) 50 ml Q30M PRN IV Hypoglycemia 12/31/19 22:45 03/12/20 07:14 Divalproex Sodium (Depakote) 250 mg EVERY 12 HOURS ORAL 01/01/20 09:00 01/12/20 20:59 01/06/20 20:13 Insulin Aspart (NovoLOG) EVERY 6 HOURS SUBQ 01/01/20 00:00 03/12/20 11:59 01/03/20 17:41 Ipratropium [place] (Atrovent) 500 mcg Q6HRT HHN 01/06/20 13:00 01/11/20 12:59 01/07/20 01:03 Levothyroxine Sodium (Synthroid) 125 mcg DAILY NG 01/02/20 09:00 02/01/20 08:59 01/06/20 09:18 Nitroglycerin (Ntg) 0.4 mg Q5MIN X 3 DOSES PRN SL CHEST PAIN 12/31/19 22:30 01/10/20 21:44 Pantoprazole (Protonix) 40 mg EVERY 12 HOURS ORAL 01/06/20 21:00 02/05/20 20:59 01/06/20 20:13 Polyethylene Glycol (Miralax) 17 gm BEDTIME NG 01/01/20 21:00 01/18/20 20:59 01/06/20 20:13 Polyethylene Glycol (Miralax) 17 gm DAILYPRN PRN NG Constipation 01/01/20 19:00 01/23/20 18:59 Quetiapine Fumarate (SEROqueL) 50 mg Q12HR NG 01/01/20 21:00 02/05/20 20:59 01/06/20 20:13 Jabari Adams MD Jan 07, 2020 06:34
--- NOTE | 2020-01-07 06:39 | General Progress Note ---
Assessment/Plan Status: progressing, unchanged Assessment/Plan: Assessment - Resp failure - r/o COVID -- x 2 negative - COPD - HTN - Anemia - Abnormal LFT -anemia Recommendations - extubated now - Elevate HOB - abx - follow labs - f/u hepatitis serologies>>> neg -repeat labs -on oral diet now -drop in H&H without obvious bleed -repeat cbc in am -ppi -no bm for 3 days, add laxatives Subjective ROS Limited/Unobtainable: No Allergies: Coded Allergies: LITHIUM (Verified Allergy, Unknown, 02/07/19) Objective Last 24 Hour Vital Signs Date Time Temp Pulse Resp B/P (MAP) Pulse Ox O2 Delivery O2 Flow Rate FiO2 01/07/20 04:00 4.0 31 01/07/20 04:00 Venturi Mask 14.0 01/07/20 03:55 97.8 69 18 118/44 (68) 99 01/07/20 03:28 68 01/07/20 01:04 76 17 100 Venturi Mask 4.0 31 74 18 100 01/07/20 00:00 4.0 31 01/07/20 00:00 Venturi Mask 14.0 01/07/20 00:00 97.6 74 18 129/78 (95) 100 01/06/20 23:30 74 01/06/20 21:02 14.0 55 01/06/20 20:05 99 Venturi Mask 4.0 31 01/06/20 20:03 75 22 100 Venturi Mask 4.0 31 74 22 99 01/06/20 20:00 4.0 40 01/06/20 20:00 97.9 78 18 121/87 (98) 100 01/06/20 20:00 Venturi Mask 14.0 01/06/20 19:32 80 01/06/20 16:00 73 01/06/20 16:00 Venturi Mask 14.0 01/06/20 16:00 97.7 71 19 128/48 (74) 98 01/06/20 16:00 4.0 01/06/20 13:04 75 22 99 Venturi Mask 4.0 31 70 17 98 01/06/20 12:33 4.0 01/06/20 12:00 75 01/06/20 12:00 Venturi Mask 14.0 01/06/20 12:00 97.5 82 18 138/33 (68) 92 01/06/20 08:06 4.0 01/06/20 08:05 96.4 72 20 124/47 (72) 99 01/06/20 08:00 72 01/06/20 07:58 Venturi Mask 14.0 01/06/20 07:12 100 Venturi Mask 4.0 31 Intake and Output 01/06/20 01/07/20 19:00 07:00 Intake Total 770 ml 505 ml Balance 770 ml 505 ml Intake Oral 720 ml IV Total 50 ml 505 ml # Voids 2 Laboratory Tests 01/06/20 23:20: POC Whole Blood Glucose [Pending] 01/07/20 03:49: White Blood Count 6.2, Red Blood Count 2.87L, Hemoglobin 9.3L, Hematocrit 28.5L , Mean Corpuscular Volume 99, Mean Corpuscular Hemoglobin 32.5H, Mean Corpuscular Hemoglobin Concent 32.8, Red Cell Distribution Width 12.9, Platelet Count 159, Mean Platelet Volume 5.8L, Neutrophils (%) (Auto) 71.4, Lymphocytes ( %) (Auto) 20.3, Monocytes (%) (Auto) 6.2, Eosinophils (%) (Auto) 1.7, Basophils (%) (Auto) 0.4, Sodium Level 148H, Potassium Level 3.7, Chloride Level 108H, Carbon Dioxide Level 40H, Anion Gap -1L, Blood Urea Nitrogen 31H, Creatinine 0.8 , Estimat Glomerular Filtration Rate > 60, Glucose Level 110H, Calcium Level 8.6 , Iron Level 84, Total Iron Binding Capacity 190L, Percent Iron Saturation 44, Unsaturated Iron Binding 106L 01/07/20 05:09: POC Whole Blood Glucose [Pending] Height (Feet): 5 Height (Inches): 7.00 Weight (Pounds): 202 General Appearance: no apparent distress EENT: PERRL/EOMI Neck: supple Cardiovascular: normal rate Respiratory/Chest: decreased breath sounds Abdomen: normal bowel sounds, non tender, soft Extremities: non-tender Kirk Vidal MD Jan 07, 2020 06:39
--- NOTE | 2020-01-07 06:53 | NUR ---
HAND-OFF: Report given to Miguel Rn, pt. remains stable and no signs of distress noted- aware to f/u on any abnormal am labs.
--- NOTE | 2020-01-07 07:30 | NUR ---
NURSE NOTES: Received report from DARREL Cazares. Patient is resting in bed, in stable condition. No s/sx of SOB, breathing is even and unlabored. Denies any presence of pain or discomfort at this time. Bed is in lowest position, brakes engaged. Call light is kept within easy reach. Will continue to monitor patient.
--- NOTE | 2020-01-07 08:04 | NUR ---
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 CURRENT DIET:CCHO MED/ Low Na + puree moist w/ NTL PO DIET RECOMMENDATIONS: LOW NA/ CCHO MED (texture per REPRODUCTION TECHNICIAN) ADDITIONAL RECOMMENDATIONS: * Per SNF: HT=68" NH=411vpd (12/04/19), rec re-calibrated bedscale wt * Monitor lytes, replete as needed * Add MVI x 1 as supplement * Monitor PO intake, need to add HPN- improved PO * Monitor BMs -> laxatives added 01/06 * Monitor hydration status: Na and BUN elevated, on added D5 .
--- NOTE | 2020-01-07 08:33 | Pulmonology Progress Note ---
Subjective ROS Limited/Unobtainable: No Interval Events: None new Constitutional: Denies: fever HEENT: Repors: no symptoms Respiratory: Reports: no symptoms Cardiovascular: Reports: no symptoms Gastrointestinal/Abdominal: Reports: diarrhea Genitourinary: Reports: no symptoms Allergies: Coded Allergies: LITHIUM (Verified Allergy, Unknown, 02/07/19) All Systems: reviewed and negative except above Objective Last 24 Hour Vital Signs Date Time Temp Pulse Resp B/P (MAP) Pulse Ox O2 Delivery O2 Flow Rate FiO2 01/07/20 07:43 71 20 99 Venturi Mask 4.0 31 68 20 96 01/07/20 07:43 96 Venturi Mask 4.0 30 01/07/20 04:00 4.0 31 01/07/20 04:00 Venturi Mask 14.0 01/07/20 03:55 97.8 69 18 118/44 (68) 99 01/07/20 03:28 68 01/07/20 01:04 76 17 100 Venturi Mask 4.0 31 74 18 100 01/07/20 00:00 4.0 31 01/07/20 00:00 Venturi Mask 14.0 01/07/20 00:00 97.6 74 18 129/78 (95) 100 01/06/20 23:30 74 01/06/20 21:02 14.0 55 01/06/20 20:05 99 Venturi Mask 4.0 31 01/06/20 20:03 75 22 100 Venturi Mask 4.0 31 74 22 99 01/06/20 20:00 4.0 40 01/06/20 20:00 97.9 78 18 121/87 (98) 100 01/06/20 20:00 Venturi Mask 14.0 01/06/20 19:32 80 01/06/20 16:00 73 01/06/20 16:00 Venturi Mask 14.0 01/06/20 16:00 97.7 71 19 128/48 (74) 98 01/06/20 16:00 4.0 01/06/20 13:04 75 22 99 Venturi Mask 4.0 31 70 17 98 01/06/20 12:33 4.0 01/06/20 12:00 75 01/06/20 12:00 Venturi Mask 14.0 01/06/20 12:00 97.5 82 18 138/33 (68) 92 Intake and Output 01/06/20 01/07/20 19:00 07:00 Intake Total 770 ml 555 ml Balance 770 ml 555 ml Intake Oral 720 ml IV Total 50 ml 555 ml # Voids 2 General Appearance: no acute distress Respiratory: chest wall non-tender, lungs clear Cardiovascular: normal peripheral pulses, normal rate Abdomen: normal bowel sounds Laboratory Tests 01/06/20 23:20: POC Whole Blood Glucose [Pending] 01/07/20 03:49: White Blood Count 6.2, Red Blood Count 2.87L, Hemoglobin 9.3L, Hematocrit 28.5L , Mean Corpuscular Volume 99, Mean Corpuscular Hemoglobin 32.5H, Mean Corpuscular Hemoglobin Concent 32.8, Red Cell Distribution Width 12.9, Platelet Count 159, Mean Platelet Volume 5.8L, Neutrophils (%) (Auto) 71.4, Lymphocytes ( %) (Auto) 20.3, Monocytes (%) (Auto) 6.2, Eosinophils (%) (Auto) 1.7, Basophils (%) (Auto) 0.4, Sodium Level 148H, Potassium Level 3.7, Chloride Level 108H, Carbon Dioxide Level 40H, Anion Gap -1L, Blood Urea Nitrogen 31H, Creatinine 0.8 , Estimat Glomerular Filtration Rate > 60, Glucose Level 110H, Calcium Level 8.6 , Iron Level 84, Total Iron Binding Capacity 190L, Percent Iron Saturation 44, Unsaturated Iron Binding 106L 01/07/20 05:09: POC Whole Blood Glucose [Pending] Current Medications Medications (Trade) Dose Ordered Sig/Angie Route PRN Reason Start Time Stop Time Status Last Admin Dose Admin Acetaminophen (Tylenol) 650 mg Q6H PRN GT Mild Pain (Pain Scale 1-3) 01/01/20 14:00 01/31/20 13:59 Acetaminophen (Tylenol) 1,000 mg Q6H PRN GT Moderate Pain (Pain Scale 4-6) 01/01/20 14:00 01/31/20 13:59 Amantadine HCl (Symmetrel) 100 mg TWICE A DAY ORAL 01/01/20 09:00 01/11/20 08:59 01/06/20 18:09 Aspirin (ASA) 325 mg DAILY NG 01/02/20 09:00 9/5/20 08:59 01/06/20 09:18 Atorvastatin Calcium (Lipitor) 10 mg BEDTIME NG 01/01/20 21:00 03/11/20 20:59 01/06/20 20:13 Clonidine HCl (Catapres Tab) 0.1 mg Q6H PRN NG For high BP over 160 systolic 01/01/20 14:15 03/11/20 12:30 Dextrose 1,000 ml @ 50 mls/hr Q20H IV 01/06/20 11:30 02/05/20 11:29 01/07/20 03:55 Dextrose (Dextrose 50%) 25 ml Q30M PRN IV Hypoglycemia 12/31/19 22:45 03/12/20 07:14 Dextrose (Dextrose 50%) 50 ml Q30M PRN IV Hypoglycemia 12/31/19 22:45 03/12/20 07:14 Divalproex Sodium (Depakote) 250 mg EVERY 12 HOURS ORAL 01/01/20 09:00 01/12/20 20:59 01/06/20 20:13 Docusate Sodium (Colace) 100 mg TWICE A DAY ORAL 01/07/20 09:00 02/06/20 08:59 Insulin Aspart (NovoLOG) EVERY 6 HOURS SUBQ 01/01/20 00:00 03/12/20 11:59 01/03/20 17:41 Ipratropium [place] (Atrovent) 500 mcg Q6HRT HHN 01/06/20 13:00 01/11/20 12:59 01/07/20 07:43 Lactulose (Cephulac) 20 gm DAILY ORAL 01/07/20 09:00 02/06/20 08:59 Levothyroxine Sodium (Synthroid) 125 mcg DAILY NG 01/02/20 09:00 02/01/20 08:59 01/06/20 09:18 Nitroglycerin (Ntg) 0.4 mg Q5MIN X 3 DOSES PRN SL CHEST PAIN 12/31/19 22:30 01/10/20 21:44 Pantoprazole (Protonix) 40 mg EVERY 12 HOURS ORAL 01/06/20 21:00 02/05/20 20:59 01/06/20 20:13 Polyethylene Glycol (Miralax) 17 gm BEDTIME NG 01/01/20 21:00 01/18/20 20:59 01/06/20 20:13 Polyethylene Glycol (Miralax) 17 gm DAILYPRN PRN NG Constipation 01/01/20 19:00 01/23/20 18:59 Quetiapine Fumarate (SEROqueL) 50 mg Q12HR NG 01/01/20 21:00 02/05/20 20:59 01/06/20 20:13 Assessment/Plan Assessment/Plan IMPRESSION: 1. Respiratory failure. Improved; now on nasal o2 2. Has healthcare-associated pneumonia; is negative for COVID-19. 3. Psych disorder. 4. Obesity. 5. Hypertension. 6. Hypernatremia DISCUSSION: Has negative COVID-19 swab. On Seroquel; on decreased dose Off steroids Off Lasix and Diamox Has diuresed well DC to snf Emerita Fan Omar Syed MD Jan 07, 2020 08:33
--- NOTE | 2020-01-07 08:48 | Cardiac Electrophysiology PN ---
Assessment/Plan Assessment/Plan 1. S/P Recurrent respiratory failure with BNP of more than 19,000. Normal EF. On Face Mask 2. Bradycardia requiring atropine due to respiratory failure . No further 3. Bilateral UE edema. Venous Duplex was negative on 12/12/19. 4. History of Parkinson disease. 5. Hyperlipidemia. DW health support specialist pending Subjective Subjective Off BIPAP, alert in NAD on SDU. No events. RN at bedside Objective Last 24 Hour Vital Signs Date Time Temp Pulse Resp B/P (MAP) Pulse Ox O2 Delivery O2 Flow Rate FiO2 01/07/20 07:43 71 20 99 Venturi Mask 4.0 31 68 20 96 01/07/20 07:43 96 Venturi Mask 4.0 30 01/07/20 04:00 4.0 31 01/07/20 04:00 Venturi Mask 14.0 01/07/20 03:55 97.8 69 18 118/44 (68) 99 01/07/20 03:28 68 01/07/20 01:04 76 17 100 Venturi Mask 4.0 31 74 18 100 01/07/20 00:00 4.0 31 01/07/20 00:00 Venturi Mask 14.0 01/07/20 00:00 97.6 74 18 129/78 (95) 100 01/06/20 23:30 74 01/06/20 21:02 14.0 55 01/06/20 20:05 99 Venturi Mask 4.0 31 01/06/20 20:03 75 22 100 Venturi Mask 4.0 31 74 22 99 01/06/20 20:00 4.0 40 01/06/20 20:00 97.9 78 18 121/87 (98) 100 01/06/20 20:00 Venturi Mask 14.0 01/06/20 19:32 80 01/06/20 16:00 73 01/06/20 16:00 Venturi Mask 14.0 01/06/20 16:00 97.7 71 19 128/48 (74) 98 01/06/20 16:00 4.0 01/06/20 13:04 75 22 99 Venturi Mask 4.0 31 70 17 98 01/06/20 12:33 4.0 01/06/20 12:00 75 01/06/20 12:00 Venturi Mask 14.0 01/06/20 12:00 97.5 82 18 138/33 (68) 92 Intake and Output 01/06/20 01/07/20 19:00 07:00 Intake Total 770 ml 555 ml Balance 770 ml 555 ml Intake Oral 720 ml IV Total 50 ml 555 ml # Voids 2 Laboratory Tests Test 01/06/20 23:20 01/07/20 03:49 01/07/20 05:09 POC Whole Blood Glucose Pending Pending White Blood Count 6.2 K/UL (4.8-10.8) Red Blood Count 2.87 M/UL (4.20-5.40) L Hemoglobin 9.3 G/DL (12.0-16.0) L Hematocrit 28.5 % (37.0-47.0) L Mean Corpuscular Volume 99 FL (80-99) Mean Corpuscular Hemoglobin 32.5 PG (27.0-31.0) H Mean Corpuscular Hemoglobin Concent 32.8 G/DL (32.0-36.0) Red Cell Distribution Width 12.9 % (11.6-14.8) Platelet Count 159 K/UL (150-450) Mean Platelet Volume 5.8 FL (6.5-10.1) L Neutrophils (%) (Auto) 71.4 % (45.0-75.0) Lymphocytes (%) (Auto) 20.3 % (20.0-45.0) Monocytes (%) (Auto) 6.2 % (1.0-10.0) Eosinophils (%) (Auto) 1.7 % (0.0-3.0) Basophils (%) (Auto) 0.4 % (0.0-2.0) Sodium Level 148 MMOL/L (136-145) H Potassium Level 3.7 MMOL/L (3.5-5.1) Chloride Level 108 MMOL/L (98-107) H Carbon Dioxide Level 40 MMOL/L (21-32) H Anion Gap -1 mmol/L (5-15) L Blood Urea Nitrogen 31 mg/dL (7-18) H Creatinine 0.8 MG/DL (0.55-1.30) Estimat Glomerular Filtration Rate > 60 mL/min (>60) Glucose Level 110 MG/DL (74-106) H Calcium Level 8.6 MG/DL (8.5-10.1) Iron Level 84 ug/dL (50-175) Total Iron Binding Capacity 190 ug/dL (250-450) L Percent Iron Saturation 44 % (15-50) Unsaturated Iron Binding 106 ug/dL (112-346) L Objective HEAD AND NECK: No JVD. LUNGS: Coarse rhonchi. CARDIOVASCULAR: Regular S1 and S2 and tachycardic. ABDOMEN: Soft. EXTREMITIES: Bilateral Arm edema. Cameron Davies MD Jan 07, 2020 08:48
[2020-01-07] MEDS: Levothyroxine 125mcg tab NG SCH (08:56)
[2020-01-07] MEDS: Docusate 100mg cap ORAL SCH ×2 (08:57→17:27)
[2020-01-07] MEDS: Amantadine 100mg cap ORAL SCH ×2 (08:57→17:27)
[2020-01-07] MEDS ORDERED: Lactulose 20gm/30ml UDC ORAL SCH (09:00)
--- NOTE | 2020-01-07 10:20 | Infectious Diseases Prog Note ---
Assessment/Plan Assessment/Plan IMPRESSION: COPD exacerbation, Pneumonia, COID19 X 2: negative Acute respiratory failure with hypercapnia Dementia, Parkinson, Mitral valve regurgitation, Hypertension, Hypothyroidism. MRSA carrier Leukocytosis resolved DM RECOMMENDATION: Observe off antibiotic Waiting for placement Subjective ROS Limited/Unobtainable: Yes Constitutional: Denies: fever Allergies: Coded Allergies: LITHIUM (Verified Allergy, Unknown, 02/07/19) Objective Last 24 Hour Vital Signs Date Time Temp Pulse Resp B/P (MAP) Pulse Ox O2 Delivery O2 Flow Rate FiO2 01/07/20 09:00 4.0 31 01/07/20 08:00 97.7 72 18 126/45 (72) 99 01/07/20 08:00 70 01/07/20 08:00 Venturi Mask 14.0 01/07/20 07:43 71 20 99 Venturi Mask 4.0 31 68 20 96 01/07/20 07:43 96 Venturi Mask 4.0 30 01/07/20 04:00 4.0 31 01/07/20 04:00 Venturi Mask 14.0 01/07/20 03:55 97.8 69 18 118/44 (68) 99 01/07/20 03:28 68 01/07/20 01:04 76 17 100 Venturi Mask 4.0 31 74 18 100 01/07/20 00:00 4.0 31 01/07/20 00:00 Venturi Mask 14.0 01/07/20 00:00 97.6 74 18 129/78 (95) 100 01/06/20 23:30 74 01/06/20 21:02 14.0 55 01/06/20 20:05 99 Venturi Mask 4.0 31 01/06/20 20:03 75 22 100 Venturi Mask 4.0 31 74 22 99 01/06/20 20:00 4.0 40 01/06/20 20:00 97.9 78 18 121/87 (98) 100 01/06/20 20:00 Venturi Mask 14.0 01/06/20 19:32 80 01/06/20 16:00 73 01/06/20 16:00 Venturi Mask 14.0 01/06/20 16:00 97.7 71 19 128/48 (74) 98 01/06/20 16:00 4.0 01/06/20 13:04 75 22 99 Venturi Mask 4.0 31 70 17 98 01/06/20 12:33 4.0 01/06/20 12:00 75 01/06/20 12:00 Venturi Mask 14.0 01/06/20 12:00 97.5 82 18 138/33 (68) 92 Height (Feet): 5 Height (Inches): 7.00 Weight (Pounds): 202 General Appearance: no acute distress HEENT: mucous membranes moist Respiratory/Chest: rhonchi - bilaterally, other - on venturi mask Cardiovascular: normal rate Abdomen: soft, non tender Extremities: no edema Neurologic/Psychiatric: other - sleeping Laboratory Tests Test 01/06/20 23:20 01/07/20 03:49 01/07/20 05:09 POC Whole Blood Glucose Pending Pending White Blood Count 6.2 K/UL (4.8-10.8) Red Blood Count 2.87 M/UL (4.20-5.40) L Hemoglobin 9.3 G/DL (12.0-16.0) L Hematocrit 28.5 % (37.0-47.0) L Mean Corpuscular Volume 99 FL (80-99) Mean Corpuscular Hemoglobin 32.5 PG (27.0-31.0) H Mean Corpuscular Hemoglobin Concent 32.8 G/DL (32.0-36.0) Red Cell Distribution Width 12.9 % (11.6-14.8) Platelet Count 159 K/UL (150-450) Mean Platelet Volume 5.8 FL (6.5-10.1) L Neutrophils (%) (Auto) 71.4 % (45.0-75.0) Lymphocytes (%) (Auto) 20.3 % (20.0-45.0) Monocytes (%) (Auto) 6.2 % (1.0-10.0) Eosinophils (%) (Auto) 1.7 % (0.0-3.0) Basophils (%) (Auto) 0.4 % (0.0-2.0) Sodium Level 148 MMOL/L (136-145) H Potassium Level 3.7 MMOL/L (3.5-5.1) Chloride Level 108 MMOL/L (98-107) H Carbon Dioxide Level 40 MMOL/L (21-32) H Anion Gap -1 mmol/L (5-15) L Blood Urea Nitrogen 31 mg/dL (7-18) H Creatinine 0.8 MG/DL (0.55-1.30) Estimat Glomerular Filtration Rate > 60 mL/min (>60) Glucose Level 110 MG/DL (74-106) H Calcium Level 8.6 MG/DL (8.5-10.1) Iron Level 84 ug/dL (50-175) Total Iron Binding Capacity 190 ug/dL (250-450) L Percent Iron Saturation 44 % (15-50) Unsaturated Iron Binding 106 ug/dL (112-346) L Current Medications Medications (Trade) Dose Ordered Sig/Angie Route PRN Reason Start Time Stop Time Status Last Admin Dose Admin Acetaminophen (Tylenol) 650 mg Q6H PRN GT Mild Pain (Pain Scale 1-3) 01/01/20 14:00 01/31/20 13:59 Acetaminophen (Tylenol) 1,000 mg Q6H PRN GT Moderate Pain (Pain Scale 4-6) 01/01/20 14:00 01/31/20 13:59 Amantadine HCl (Symmetrel) 100 mg TWICE A DAY ORAL 01/01/20 09:00 01/11/20 08:59 01/07/20 08:57 Aspirin (ASA) 325 mg DAILY NG 01/02/20 09:00 02/16/20 08:59 01/07/20 08:56 Atorvastatin Calcium (Lipitor) 10 mg BEDTIME NG 01/01/20 21:00 03/11/20 20:59 01/06/20 20:13 Clonidine HCl (Catapres Tab) 0.1 mg Q6H PRN NG For high BP over 160 systolic 01/01/20 14:15 03/11/20 12:30 Dextrose 1,000 ml @ 50 mls/hr Q20H IV 01/06/20 11:30 02/05/20 11:29 01/07/20 03:55 Dextrose (Dextrose 50%) 25 ml Q30M PRN IV Hypoglycemia 12/31/19 22:45 03/12/20 07:14 Dextrose (Dextrose 50%) 50 ml Q30M PRN IV Hypoglycemia 12/31/19 22:45 03/12/20 07:14 Divalproex Sodium (Depakote) 250 mg EVERY 12 HOURS ORAL 01/01/20 09:00 01/12/20 20:59 01/07/20 08:57 Docusate Sodium (Colace) 100 mg TWICE A DAY ORAL 01/07/20 09:00 02/06/20 08:59 01/07/20 08:57 Insulin Aspart (NovoLOG) EVERY 6 HOURS SUBQ 01/01/20 00:00 03/12/20 11:59 01/03/20 17:41 Ipratropium [place] (Atrovent) 500 mcg Q6HRT HHN 01/06/20 13:00 01/11/20 12:59 01/07/20 07:43 Lactulose (Cephulac) 20 gm DAILY ORAL 01/07/20 09:00 02/06/20 08:59 01/07/20 08:56 Levothyroxine Sodium (Synthroid) 125 mcg DAILY NG 01/02/20 09:00 02/01/20 08:59 01/07/20 08:56 Nitroglycerin (Ntg) 0.4 mg Q5MIN X 3 DOSES PRN SL CHEST PAIN 12/31/19 22:30 01/10/20 21:44 Pantoprazole (Protonix) 40 mg EVERY 12 HOURS ORAL 01/06/20 21:00 02/05/20 20:59 01/07/20 08:57 Polyethylene Glycol (Miralax) 17 gm BEDTIME NG 01/01/20 21:00 01/18/20 20:59 01/06/20 20:13 Polyethylene Glycol (Miralax) 17 gm DAILYPRN PRN NG Constipation 01/01/20 19:00 01/23/20 18:59 Quetiapine Fumarate (SEROqueL) 50 mg Q12HR NG 01/01/20 21:00 02/05/20 20:59 01/07/20 08:57 Lei Chan MD Jan 07, 2020 10:20
--- NOTE | 2020-01-07 10:25 | NUR ---
ST NOTE SWALLOW STATUS INITIAL IMPRESSIONS: PATIENT CLEARED FOR ST INTERVENTION BY DARREL PETERSEN. PATIENT RECEIVED ALERT AND ORIENTED TO SPEAKER. PER CHART REVIEW/PULMONARY PROGRESS NOTE 01/06/AT 7:43 AM: PATIENTS LUNGS ARE CLEAR. SHE CONTINUES TO HAVE DIFFICULTY WITH CO2 RETENTION. PER RD NOTE (01/06) PATIENTS P.O. INTAKE REMAINS VARIABLE BUT SUFFICIENT TO SUPPORT NUTRITION/HYDRATION NEEDS. PATIENT WAS NOT ORIENTED TO PLACE, SITUATION, MONTH OR YEAR. VITALS ON 4 LIT VIA VENTURI MASK: : Fi02 31%; HR: 73; RR: 20; SP02 98%; PRIOR TO P.O. TRIALS, PATIENT WAS POSITIONED AT 90 DEGREES UPRIGHT. PRELIMINARY TO P.O., AN ORAL MOTOR ASSESSMENT WAS COMPLETED: ORAL CAVITY CLEAR, MUCOSA DRY. WHEN ASKED IF HER MOUTH WAS DRY, THE PATIENT RESPONDED "ALL THE TIME". WHEN PRESENTED WITH P.O. TRIALS OF PUREE (2 OZ) AND NECTAR THICK WATER (4OZ) VIA SPOON, PATIENT PRESENTED WITH DELAY IN ORAL PREPARATION AND ORAL TRANSFER INCLUDING DELAY IN INITIATION OF PHARYNGEAL PHASE OF SWALLOW. RR REMAINED BELOW 20 BPM THROUGHOUT THESE TRIALS. 02 SATURATION REMAINED >90% PATIENTS VOCAL QUALITY REMAINED CLEAR THROUGHOUT THIS SESSION. HER VOICING OCCURS IN BURSTS, SHE HAS DIFFICULTY SUSTAINING PHONATION MORE THAN 5-6 SECONDS. WITH PROLONGED TALKING, HER RESPIRATION RATE INCREASES TO MID 20'S. PER CHART REVIEW, SHE APPEARS TO BE TOLERATING HER CURRENT WITH NO OVERT S/S OF ASPIRATION. DURING THESE TRIALS SHE DID NOT DEMONSTRATE THROAT CLEARING OR COUGH IN RESPONSE TO BOTH VISCOSITIES. RECOMMENDATIONS 1. CONTINUE CURRENT DIET WITH CAREFUL MEALTIME PROTOCOL. 2. INCLUDE MOUTH MOISTENER WITH DAILY ORAL CARE TO ADDRESS XEROSTOMIA 3. PALLIATIVE CARE PHYSICIAN TO CONTINUE TO MONITOR DIET TOLERANCE, REVIEW MEALTIME PROTOCOL WITH NA/RN (DISCHARGE PLANNING STILL UNDERWAY, NO PLACEMENT HAS BEEN IDENTIFIED).
--- NOTE | 2020-01-07 11:36 | Hematology/Onc Progress Note ---
Assessment/Plan Assessment/Plan # Lower extremity edema in setting of elevated ddimer --> lower ext duplex ordered to r/o dvt-->neg for dvt --> lovenox sq has been started --> low threshold for v/q or cta r/o pe # Anemia of chronic disease --> hgb 11-->10.-->9->11.9-->10.8->7.8->11->10.8->10.2-->9.6->9.5->10.8-->12--> 10->10.3->11>9.3 --> no e/o hemolysis --> no bleeding reported --> smear reviewed --> no go bleeding --> asa to continue # Leukocytosis r/o infection, likely steriods related --> wbc trend 10==>12-->14->15-->12-->14 --> steriods off --> abx off # Respiratory failure with copd exacerbation likely --> pulm toilet --> breathing rx --> steroids prn basis --> pulm eval ---> ABX per is on zosyn->now off # 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 ( combination of moderate aortic regurgitation and severe mitral regurgitation) --> diuresis as per cards --> lasix last time # Severe ascending aortic dilatation --> per cards, Dr Davies # Hypertension # Parkinson disease # Hyperlipidemia # Hypothyroidism # Dementia # Obesity # Schizophrenia --> as per [facility] --> restraints # Dvt ppx lovenox sq/scd's Appreciate wallpaper consultant care and alexei Rn Subjective Constitutional: Denies: no symptoms, chills, fever, malaise, weakness, other HEENT: Denies: no symptoms, eye pain, blurred vision, tearing, double vision, ear pain, ear discharge, nose pain, nose congestion, throat pain, throat swelling, mouth pain, mouth swelling, other Cardiovascular: Denies: no symptoms, chest pain, edema, irregular heart rate, lightheadedness, palpitations, syncope, other Respiratory: Denies: no symptoms, cough, shortness of breath, SOB with excertion, SOB at rest, sputum, wheezing, other Gastrointestinal/Abdominal: Denies: no symptoms, abdomen distended, abdominal pain, black stools, tarry stools, blood in stool, constipated, diarrhea, difficulty swallowing, nausea, poor appetite, poor fluid intake, rectal bleeding , vomiting, other Neurologic/Psychiatric: Denies: no symptoms, anxiety, depressed, emotional problems, headache, numbness, paresthesia, pre-existing deficit, seizure, tingling, tremors, weakness, other Endocrine: Denies: no symptoms, excessive sweating, flushing, intolerance to cold, intolerance to heat, increased hunger, increased thirst, increased urine, unexplained weight gain, unexplained weight loss, other Allergies: Coded Allergies: LITHIUM (Verified Allergy, Unknown, 02/07/19) Subjective 12/12 labs are reviewed, intubated, with og, somewhat responsive, alexei rn 12/13 labs noted, hgb 7.8, tfs ok to start per gi 12/15 icu, restraints, no acute events, hep panel negative, sedated 12/16 no bleeding, in the icu, on abx, in restarints, sleepy, vent 12/17 is on vent, also is on abx, awake, with ogt 12/18 ng placed, hgb 9.6, no bleeding, no night sweats 12/19 labs reviewed, sedated, on vent, nob leeding, meds reviewed 12/20 remains on vent, audra bleeding, meds reviewed, no night sweats 12/22 hgb 9.5, to get zosyn x 1 more day, no night sweats meds reviewed 12/23 labs noted, no bleeding, with fm, no bleeding or night sweats 12/24 no bleeding, labs noted, no night sweats hgb 10, no hemolysis 12/25 remains fatigued, fm, labs are still pending from am 12/26 restraints, v mask, cxr reviewed 12/27 labs reviewed, no bleeding, hgb 10.8, no hemolysis on FM 12/29 remains disoriented on bipap and fm as needed, hgb better 12/30 wbc 15k, no bleeding, alexei rn, no night sweats off abx 12/31 wbc remains elevated, arousable, no bleeding, on fm 01/01 meds noted, labs reviewed, no bleeding on exam 01/02 refusing labs this am, no bleeding, meds noted, no hemolysis 01/03 no bleeding, meds noted, no night sweats, cbc pend 01/04 labs noted, no bleeding, cbc has been ordered for am, seen by gi, renal 01/05 asleep, labs noted, meds revoewed.no bleeding 01/06 pending placement, no night sweats, meds have been reviewed Objective Objective Current Medications Medications (Trade) Dose Ordered Sig/Angie Route PRN Reason Start Time Stop Time Status Last Admin Dose Admin Acetaminophen (Tylenol) 650 mg Q6H PRN GT Mild Pain (Pain Scale 1-3) 01/01/20 14:00 01/31/20 13:59 Acetaminophen (Tylenol) 1,000 mg Q6H PRN GT Moderate Pain (Pain Scale 4-6) 01/01/20 14:00 01/31/20 13:59 Amantadine HCl (Symmetrel) 100 mg TWICE A DAY ORAL 01/01/20 09:00 01/11/20 08:59 01/07/20 08:57 Aspirin (ASA) 325 mg DAILY NG 01/02/20 09:00 02/16/20 08:59 01/07/20 08:56 Atorvastatin Calcium (Lipitor) 10 mg BEDTIME NG 01/01/20 21:00 03/11/20 20:59 01/06/20 20:13 Clonidine HCl (Catapres Tab) 0.1 mg Q6H PRN NG For high BP over 160 systolic 01/01/20 14:15 03/11/20 12:30 Dextrose 1,000 ml @ 50 mls/hr Q20H IV 01/06/20 11:30 02/05/20 11:29 01/07/20 03:55 Dextrose (Dextrose 50%) 25 ml Q30M PRN IV Hypoglycemia 12/31/19 22:45 03/12/20 07:14 Dextrose (Dextrose 50%) 50 ml Q30M PRN IV Hypoglycemia 12/31/19 22:45 03/12/20 07:14 Divalproex Sodium (Depakote) 250 mg EVERY 12 HOURS ORAL 01/01/20 09:00 01/12/20 20:59 01/07/20 08:57 Docusate Sodium (Colace) 100 mg TWICE A DAY ORAL 01/07/20 09:00 02/06/20 08:59 01/07/20 08:57 Insulin Aspart (NovoLOG) EVERY 6 HOURS SUBQ 01/01/20 00:00 03/12/20 11:59 01/03/20 17:41 Ipratropium Dysart (Atrovent) 500 mcg Q6HRT HHN 01/06/20 13:00 01/11/20 12:59 01/07/20 07:43 Lactulose (Cephulac) 20 gm DAILY ORAL 01/07/20 09:00 02/06/20 08:59 01/07/20 08:56 Levothyroxine Sodium (Synthroid) 125 mcg DAILY NG 01/02/20 09:00 02/01/20 08:59 01/07/20 08:56 Nitroglycerin (Ntg) 0.4 mg Q5MIN X 3 DOSES PRN SL CHEST PAIN 12/31/19 22:30 01/10/20 21:44 Pantoprazole (Protonix) 40 mg EVERY 12 HOURS ORAL 01/06/20 21:00 02/05/20 20:59 01/07/20 08:57 Polyethylene Glycol (Miralax) 17 gm BEDTIME NG 01/01/20 21:00 01/18/20 20:59 01/06/20 20:13 Polyethylene Glycol (Miralax) 17 gm DAILYPRN PRN NG Constipation 01/01/20 19:00 01/23/20 18:59 Quetiapine Fumarate (SEROqueL) 50 mg Q12HR NG 01/01/20 21:00 02/05/20 20:59 01/07/20 08:57 Last 24 Hour Vital Signs Date Time Temp Pulse Resp B/P (MAP) Pulse Ox O2 Delivery O2 Flow Rate FiO2 01/07/20 09:00 4.0 31 01/07/20 08:00 97.7 72 18 126/45 (72) 99 01/07/20 08:00 70 01/07/20 08:00 Venturi Mask 14.0 01/07/20 07:43 71 20 99 Venturi Mask 4.0 31 68 20 96 01/07/20 07:43 96 Venturi Mask 4.0 30 01/07/20 04:00 4.0 31 01/07/20 04:00 Venturi Mask 14.0 01/07/20 03:55 97.8 69 18 118/44 (68) 99 01/07/20 03:28 68 01/07/20 01:04 76 17 100 Venturi Mask 4.0 31 74 18 100 01/07/20 00:00 4.0 31 01/07/20 00:00 Venturi Mask 14.0 01/07/20 00:00 97.6 74 18 129/78 (95) 100 01/06/20 23:30 74 01/06/20 21:02 14.0 55 01/06/20 20:05 99 Venturi Mask 4.0 31 01/06/20 20:03 75 22 100 Venturi Mask 4.0 31 74 22 99 01/06/20 20:00 4.0 40 01/06/20 20:00 97.9 78 18 121/87 (98) 100 01/06/20 20:00 Venturi Mask 14.0 01/06/20 19:32 80 01/06/20 16:00 73 01/06/20 16:00 Venturi Mask 14.0 01/06/20 16:00 97.7 71 19 128/48 (74) 98 01/06/20 16:00 4.0 01/06/20 13:04 75 22 99 Venturi Mask 4.0 31 70 17 98 01/06/20 12:33 4.0 01/06/20 12:00 75 01/06/20 12:00 Venturi Mask 14.0 01/06/20 12:00 97.5 82 18 138/33 (68) 92 01/06/20 08:06 4.0 01/06/20 08:05 96.4 72 20 124/47 (72) 99 01/06/20 08:00 72 01/06/20 07:58 Venturi Mask 14.0 01/06/20 07:12 100 Venturi Mask 4.0 31 01/06/20 04:00 Venturi Mask 4.0 01/06/20 04:00 97.5 66 21 124/47 (72) 97 01/06/20 04:00 61 01/06/20 04:00 4.0 01/06/20 00:00 74 01/06/20 00:00 4.0 01/06/20 00:00 Venturi Mask 4.0 01/06/20 00:00 97.9 62 20 124/40 (68) 98 01/05/20 20:00 97.3 60 18 120/47 (71) 98 01/05/20 20:00 4.0 01/05/20 20:00 Venturi Mask 4.0 01/05/20 19:21 99 Venturi Mask 4.0 31 01/05/20 19:21 65 01/05/20 16:00 Bi-pap 01/05/20 16:00 68 01/05/20 16:00 97.7 71 23 127/52 (77) 98 01/05/20 16:00 4.0 01/05/20 15:15 66 16 98 01/05/20 12:00 25 01/05/20 12:00 60 01/05/20 12:00 Bi-pap Intake and Output 01/06/20 01/07/20 19:00 07:00 Intake Total 770 ml 555 ml Balance 770 ml 555 ml Intake Oral 720 ml IV Total 50 ml 555 ml # Voids 2 Labs Test 01/04/20 12:49 01/04/20 16:35 01/05/20 16:53 01/06/20 00:32 POC Whole Blood Glucose 98 MG/DL (74-106) 127 MG/DL (74-106) 125 MG/DL (74-106) 123 MG/DL (74-106) Test 01/06/20 05:25 01/06/20 05:30 01/06/20 06:09 01/06/20 23:20 Phosphorus Level 3.0 MG/DL (2.5-4.9) Magnesium Level 1.9 MG/DL (1.8-2.4) Total Bilirubin 0.7 MG/DL (0.2-1.0) Direct Bilirubin 0.2 MG/DL (0.0-0.3) Aspartate Amino Transf (AST/SGOT) 13 U/L (15-37) Alanine Aminotransferase (ALT/SGPT) 18 U/L (12-78) Alkaline Phosphatase 42 U/L (46-116) Total Protein 6.0 G/DL (6.4-8.2) Albumin 2.5 G/DL (3.4-5.0) White Blood Count 6.1 K/UL (4.8-10.8) Red Blood Count 2.90 M/UL (4.20-5.40) Hemoglobin 9.3 G/DL (12.0-16.0) Hematocrit 29.3 % (37.0-47.0) Mean Corpuscular Volume 101 FL (80-99) Mean Corpuscular Hemoglobin 32.0 PG (27.0-31.0) Mean Corpuscular Hemoglobin Concent 31.7 G/DL (32.0-36.0) Red Cell Distribution Width 13.0 % (11.6-14.8) Platelet Count 171 K/UL (150-450) Mean Platelet Volume 6.6 FL (6.5-10.1) Neutrophils (%) (Auto) 75.2 % (45.0-75.0) Lymphocytes (%) (Auto) 17.3 % (20.0-45.0) Monocytes (%) (Auto) 5.8 % (1.0-10.0) Eosinophils (%) (Auto) 1.4 % (0.0-3.0) Basophils (%) (Auto) 0.3 % (0.0-2.0) Sodium Level 150 MMOL/L (136-145) Potassium Level 3.6 MMOL/L (3.5-5.1) Chloride Level 110 MMOL/L (98-107) Carbon Dioxide Level 39 MMOL/L (21-32) Anion Gap 1 mmol/L (5-15) Blood Urea Nitrogen 31 mg/dL (7-18) Creatinine 0.7 MG/DL (0.55-1.30) Estimat Glomerular Filtration Rate > 60 mL/min (>60) Glucose Level 112 MG/DL (74-106) Calcium Level 8.8 MG/DL (8.5-10.1) Ferritin 280 NG/ML (8-388) Valproic Acid (Depakene) Level 6 MCG/ML (50-100) POC Whole Blood Glucose 93 MG/DL (74-106) Test 01/07/20 03:49 01/07/20 05:09 White Blood Count 6.2 K/UL (4.8-10.8) Red Blood Count 2.87 M/UL (4.20-5.40) Hemoglobin 9.3 G/DL (12.0-16.0) Hematocrit 28.5 % (37.0-47.0) Mean Corpuscular Volume 99 FL (80-99) Mean Corpuscular Hemoglobin 32.5 PG (27.0-31.0) Mean Corpuscular Hemoglobin Concent 32.8 G/DL (32.0-36.0) Red Cell Distribution Width 12.9 % (11.6-14.8) Platelet Count 159 K/UL (150-450) Mean Platelet Volume 5.8 FL (6.5-10.1) Neutrophils (%) (Auto) 71.4 % (45.0-75.0) Lymphocytes (%) (Auto) 20.3 % (20.0-45.0) Monocytes (%) (Auto) 6.2 % (1.0-10.0) Eosinophils (%) (Auto) 1.7 % (0.0-3.0) Basophils (%) (Auto) 0.4 % (0.0-2.0) Sodium Level 148 MMOL/L (136-145) Potassium Level 3.7 MMOL/L (3.5-5.1) Chloride Level 108 MMOL/L (98-107) Carbon Dioxide Level 40 MMOL/L (21-32) Anion Gap -1 mmol/L (5-15) Blood Urea Nitrogen 31 mg/dL (7-18) Creatinine 0.8 MG/DL (0.55-1.30) Estimat Glomerular Filtration Rate > 60 mL/min (>60) Glucose Level 110 MG/DL (74-106) Calcium Level 8.6 MG/DL (8.5-10.1) Iron Level 84 ug/dL (50-175) Total Iron Binding Capacity 190 ug/dL (250-450) Percent Iron Saturation 44 % (15-50) Unsaturated Iron Binding 106 ug/dL (112-346) Height (Feet): 5 Height (Inches): 7.00 Weight (Pounds): 202 Objective Vitals: reviewed General: NAD HEENT: nc, at ++ngt, facemask+ Neck: supple Chest: decreased breath sounds bilaterally Cardiovascular: RRR, no s3, s4 Abdomen: soft, nontender, nd Extremities: 1-2 + edema, scd's Neuro: nonverbal : iman+ Frank Escobar MD Jan 07, 2020 11:36
--- NOTE | 2020-01-07 12:41 | Nephrology Progress Note ---
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 Respiratory distress most likely secondary to pulmonary edema and or COPD exacerbation. Hyponatremia. Obese. Hypothyroidism. Elevated d-dimer. Elevated liver enzymes Plan January 06: Renal parameters stable. Subtherapeutic Depakote level. Continue per consultants. January 05: Stable from renal standpoint of view. Check iron panel ferritin and Depakote level today. Start 50 cc an hour D5W for rising serum sodium. January 04: No can panel done today. Renal parameters overall stable. Will check labs tomorrow. Discharge planning in process. Discussed with RN. January 03: Can panel reviewed. Renal parameters stable. Continue per consultants. Discharge planning in process. January 02: No labs done today. Stable from renal standpoint of view. January 01: Lab reviewed. Renal parameters stable. December 31: Lab reviewed. No new labs today. Renal parameters stable. Continue her consultants. December 30: Lab reviewed. Renal parameters stable. On 1 L oxygen with cannula. Patient agitated periodically. Due transfer to [facility]. December 29: Lab reviewed. Renal parameters stable. Now on Venturi mask. CO2 lower to 35. December 28: Lab reviewed: CO2 remains high: On BiPAP. Continue per pulmonary. Stable from renal standpoint of view. December 27: Lab reviewed. Continues to retain CO2. On Venturi mask. Continue per pulmonary. Stable from renal standpoint of view. December 26: Lab reviewed. ABG reviewed. Patient retaining CO2. Remains on BiPAP. Continue per pulmonary. Stable from renal standpoint of view. December 25: Lab reviewed. TSH remains high. On nonrebreathing mask. Renal parameters stable. Synthroid dose increased. IV fluids stopped. December 24: Lab reviewed. Still on BiPAP. Renal parameters stable. December 23: Lab reviewed. Remains on BiPAP. Agitated at times. ABG ordered. Serum sodium improved. December 22: Lab reviewed. On BiPAP. Stable from renal standpoint of view. Will follow serum sodium. December 21: Labs reviewed. On nonrebreather mask. D5W 50 cc an hour started for hypernatremia. Magnesium supplement given. Continue per consultants. December 20: Patient on weaning trial. No labs done today. Discussed with RN. Continue per consultants. December 19: Patient remains intubated. Renal parameters stable. Discussed with RN. Continue per consultants. December 18: Patient self extubated yesterday however was reintubated. Remains stable from renal standpoint of view. Discussed with RN. Discussed with Dr. Myers. December 17: Remains intubated. Remains full code. Failed weaning. Stable from renal standpoint of view. Continue per consultants. Discussed with DARREL Montenegro. December 16: Remains intubated. Full code. Weaning in process. Stable from renal standpoint of view. December 15: Remains vented. Electrolytes improved. Continue per consultants. December 14: Patient remains in ICU intubated on ventilator. Potassium low. Phosphorus low. Supplements given. Renal parameters are stable. Continue per consultants. December 13: Patient remains in ICU intubated on ventilator. Discussed with RN. Labs reviewed. Creatinine 1.3. Potassium supplements given. Mag sulfate IV 2 g given. Continue per consultants. December 12: Patient in ICU. Intubated on ventilator. Discussed with RN. Labs reviewed. Potassium supplement given. Continue per consultants. Arterial blood gas indicative of CO2 retention. Patient on the way to ICU for intubation. Continue per pulmonary management. Pulmonary support, Check 2D echocardiogram. Previous 2D echo had a 50% ejection fraction. Keep blood sugar and blood pressure in check. Thyroid panel. Monitor electrolytes and renal parameters. Afterload reduction. Diuretics Monitor serum calcium, supplements via NG tube. Per orders. Subjective ROS Limited/Unobtainable: No Constitutional: Reports: malaise, weakness Objective Objective Last 24 Hour Vital Signs Date Time Temp Pulse Resp B/P (MAP) Pulse Ox O2 Delivery O2 Flow Rate FiO2 01/07/20 12:00 4.0 31 01/07/20 12:00 97.5 69 18 107/40 (62) 95 01/07/20 12:00 Venturi Mask 14.0 01/07/20 09:00 4.0 31 01/07/20 08:00 97.7 72 18 126/45 (72) 99 01/07/20 08:00 70 01/07/20 08:00 Venturi Mask 14.0 01/07/20 07:43 71 20 99 Venturi Mask 4.0 31 68 20 96 01/07/20 07:43 96 Venturi Mask 4.0 30 01/07/20 04:00 4.0 31 01/07/20 04:00 Venturi Mask 14.0 01/07/20 03:55 97.8 69 18 118/44 (68) 99 01/07/20 03:28 68 01/07/20 01:04 76 17 100 Venturi Mask 4.0 31 74 18 100 01/07/20 00:00 4.0 31 01/07/20 00:00 Venturi Mask 14.0 01/07/20 00:00 97.6 74 18 129/78 (95) 100 01/06/20 23:30 74 01/06/20 21:02 14.0 55 01/06/20 20:05 99 Venturi Mask 4.0 31 01/06/20 20:03 75 22 100 Venturi Mask 4.0 31 74 22 99 01/06/20 20:00 4.0 40 01/06/20 20:00 97.9 78 18 121/87 (98) 100 01/06/20 20:00 Venturi Mask 14.0 01/06/20 19:32 80 01/06/20 16:00 73 01/06/20 16:00 Venturi Mask 14.0 01/06/20 16:00 97.7 71 19 128/48 (74) 98 01/06/20 16:00 4.0 01/06/20 13:04 75 22 99 Venturi Mask 4.0 31 70 17 98 Intake and Output 01/06/20 01/07/20 19:00 07:00 Intake Total 770 ml 555 ml Balance 770 ml 555 ml Intake Oral 720 ml IV Total 50 ml 555 ml # Voids 2 Laboratory Tests 01/06/20 23:20: POC Whole Blood Glucose [Pending] 01/07/20 03:49: White Blood Count 6.2, Red Blood Count 2.87L, Hemoglobin 9.3L, Hematocrit 28.5L , Mean Corpuscular Volume 99, Mean Corpuscular Hemoglobin 32.5H, Mean Corpuscular Hemoglobin Concent 32.8, Red Cell Distribution Width 12.9, Platelet Count 159, Mean Platelet Volume 5.8L, Neutrophils (%) (Auto) 71.4, Lymphocytes ( %) (Auto) 20.3, Monocytes (%) (Auto) 6.2, Eosinophils (%) (Auto) 1.7, Basophils (%) (Auto) 0.4, Sodium Level 148H, Potassium Level 3.7, Chloride Level 108H, Carbon Dioxide Level 40H, Anion Gap -1L, Blood Urea Nitrogen 31H, Creatinine 0.8 , Estimat Glomerular Filtration Rate > 60, Glucose Level 110H, Calcium Level 8.6 , Iron Level 84, Total Iron Binding Capacity 190L, Percent Iron Saturation 44, Unsaturated Iron Binding 106L 01/07/20 05:09: POC Whole Blood Glucose [Pending] 01/07/20 11:37: POC Whole Blood Glucose 104 Height (Feet): 5 Height (Inches): 7.00 Weight (Pounds): 202 Bryan Ochoa MD Jan 07, 2020 12:41
--- NOTE | 2020-01-07 15:13 | NUR ---
CASE MANAGEMENT: REVIEW SI: COPD EXACERBATION . PNA T 97.5 HR 69 RR 18 BP 107/40 SAT 95% VENTURI MASK FLOW RATE 14.0 H/H 9.3/28.5 NA 148 IS: SOLU MEDROL IV Q6HR SYNTHROID GT Q12HR PROTONIX IV Q12HR STEP DOWN UNIT STATUS DCP: PATIENT IS FROM [facility].
--- NOTE | 2020-01-07 16:44 | NUR ---
*-*DISCHARGE PLANNING*-* PATIENT HAS BEEN REFERRED BACK TO: [facility] P: [phone] S/W EMMIE, NO BEDS AVAILABLE AT THIS TIME.
--- NOTE | 2020-01-07 19:32 | NUR ---
HAND-OFF: Report given to Daniel Russell RN.
--- NOTE | 2020-01-07 19:35 | NUR ---
NURSE NOTES: Received pt's report from DARREL Rivera. Pt is on laying on bed, sleeping. Pt is on 3L via NC. SpO2 96% and RR 24 noted. No s/s of respiratory distress noted. IV site intact noted. Call-light within reach. Bed is low and locked position. Will continue to monitor with plan of care.
--- NOTE | 2020-01-07 21:00 | NUR ---
NURSE NOTES: Pt keeps removing her NC but pt is stable, SpO2 is 95%. Administered crushed medication with thickener.
[2020-01-07] MEDS: Miralax 17gm pkt NG SCH (21:34)
--- NOTE | 2020-01-07 21:37 | General Progress Note ---
Assessment/Plan Problem List: (1) Dyspnea ICD Codes: R06.00 - Dyspnea, unspecified SNOMED: 496516099 (2) Hypothyroidism ICD Codes: E03.9 - Hypothyroidism, unspecified SNOMED: 16184134 (3) Obese ICD Codes: E66.9 - Obesity, unspecified SNOMED: 521807644, 939592563 (4) Psychosis ICD Codes: F29 - Unspecified psychosis not due to a substance or known physiological condition SNOMED: 04338693 (5) Respiratory failure ICD Codes: J96.90 - Respiratory failure, unspecified, unspecified whether with hypoxia or hypercapnia SNOMED: 185135162 (6) Respiratory distress ICD Codes: R06.03 - Acute respiratory distress SNOMED: 748036021 (7) Dyspnea ICD Codes: R06.00 - Dyspnea, unspecified SNOMED: 390843665 (8) Pneumonia ICD Codes: J18.9 - Pneumonia, unspecified organism SNOMED: 594332850 (9) Acute and chronic respiratory failure ICD Codes: J96.20 - Acute and chronic respiratory failure, unspecified whether with hypoxia or hypercapnia SNOMED: 96801847 (10) Diabetes mellitus type 2 in nonobese ICD Codes: E11.9 - Type 2 diabetes mellitus without complications SNOMED: 667486639 (11) CHF (congestive heart failure) ICD Codes: I50.9 - Heart failure, unspecified SNOMED: 77139906 Qualifiers: Qualified Codes: I50.9 - Heart failure, unspecified (12) Hypoxia ICD Codes: R09.02 - Hypoxemia SNOMED: 476364767 (13) Elevated d-dimer ICD Codes: R79.89 - Other specified abnormal findings of blood chemistry SNOMED: 807991028 (14) Schizophrenia ICD Codes: F20.9 - Schizophrenia, unspecified SNOMED: 87453555 (15) Parkinson disease ICD Codes: G20 - Parkinson's disease SNOMED: 00005191 Status: progressing, unchanged Assessment/Plan: copd resp insuff chf prn bipap no change afebrile Subjective ROS Limited/Unobtainable: Yes Allergies: Coded Allergies: LITHIUM (Verified Allergy, Unknown, 02/07/19) Objective Last 24 Hour Vital Signs Date Time Temp Pulse Resp B/P (MAP) Pulse Ox O2 Delivery O2 Flow Rate FiO2 01/07/20 20:00 97.5 71 20 107/43 (64) 100 01/07/20 19:06 99 Nasal Cannula 3.0 32 01/07/20 19:05 74 20 100 Nasal Cannula 3.0 32 73 20 99 01/07/20 19:03 71 01/07/20 18:00 3.0 01/07/20 16:00 97.7 70 18 109/40 (63) 100 01/07/20 16:00 4.0 31 01/07/20 16:00 64 01/07/20 16:00 Venturi Mask 14.0 01/07/20 13:06 72 20 100 Venturi Mask 4.0 31 63 22 97 01/07/20 12:00 4.0 31 01/07/20 12:00 97.5 69 18 107/40 (62) 95 01/07/20 12:00 Venturi Mask 14.0 01/07/20 12:00 69 01/07/20 09:00 4.0 31 01/07/20 08:00 97.7 72 18 126/45 (72) 99 01/07/20 08:00 70 01/07/20 08:00 Venturi Mask 14.0 01/07/20 07:43 71 20 99 Venturi Mask 4.0 31 68 20 96 01/07/20 07:43 96 Venturi Mask 4.0 30 01/07/20 04:00 4.0 31 01/07/20 04:00 Venturi Mask 14.0 01/07/20 03:55 97.8 69 18 118/44 (68) 99 01/07/20 03:28 68 01/07/20 01:04 76 17 100 Venturi Mask 4.0 31 74 18 100 01/07/20 00:00 4.0 31 01/07/20 00:00 Venturi Mask 14.0 01/07/20 00:00 97.6 74 18 129/78 (95) 100 01/06/20 23:30 74 Intake and Output 01/06/20 01/07/20 19:00 07:00 Intake Total 770 ml 555 ml Balance 770 ml 555 ml Intake Oral 720 ml IV Total 50 ml 555 ml # Voids 2 Laboratory Tests 01/06/20 23:20: POC Whole Blood Glucose [Pending] 01/07/20 03:49: White Blood Count 6.2, Red Blood Count 2.87L, Hemoglobin 9.3L, Hematocrit 28.5L , Mean Corpuscular Volume 99, Mean Corpuscular Hemoglobin 32.5H, Mean Corpuscular Hemoglobin Concent 32.8, Red Cell Distribution Width 12.9, Platelet Count 159, Mean Platelet Volume 5.8L, Neutrophils (%) (Auto) 71.4, Lymphocytes ( %) (Auto) 20.3, Monocytes (%) (Auto) 6.2, Eosinophils (%) (Auto) 1.7, Basophils (%) (Auto) 0.4, Sodium Level 148H, Potassium Level 3.7, Chloride Level 108H, Carbon Dioxide Level 40H, Anion Gap -1L, Blood Urea Nitrogen 31H, Creatinine 0.8 , Estimat Glomerular Filtration Rate > 60, Glucose Level 110H, Calcium Level 8.6 , Iron Level 84, Total Iron Binding Capacity 190L, Percent Iron Saturation 44, Unsaturated Iron Binding 106L 01/07/20 05:09: POC Whole Blood Glucose [Pending] 01/07/20 11:37: POC Whole Blood Glucose 104 01/07/20 16:49: POC Whole Blood Glucose 95 Height (Feet): 5 Height (Inches): 7.00 Weight (Pounds): 202 Dani Perera MD Jan 07, 2020 21:37
--- NOTE | 2020-01-07 22:00 | NUR ---
NURSE NOTES: Bedside assessment performed; patient remains hemodynamically stable with Spo2 reaching above 94%, breathing pattern remains normal with RR 16~20. BP remains within normotensive parameters, no acute rep distress noted, remains afebrile. Patient remains high-fowlers position. Fall, Aspiration ans skin precautions observed. Safety measures remain in place, call light within reach, education regarding plan of care, will continue to monitor.
[2020-01-07] MEDS ORDERED: Nitroglycerin Subl 0.4mg tab SL PRN (22:30)
--- NOTE | 2020-01-07 22:30 | NUR ---
NURSE NOTES: Received patient from DARREL Slade. Alert and oriented x2, able to verbalize needs. On 2L nasal cannula, saturating well. Breathing unlabored and even. IV site intact and asymptomatic; flushed. IVF running at a prescribed rate. Noted to have accuchecks q6H. Will turn and reposition q2H, but also endorsed to be able to move in bed. Belongings and call light placed within reach. Bed in lowest position, brakes engaged, and bed alarm on. Bed rails raised x3. Will continue to monitor.
--- NOTE | 2020-01-07 22:30 | NUR ---
TRANSFER TO FLOOR: Patient transferred to [facility], sandy Davies. Report given to DARREL Lima. Belongings and medications given to DARREL Lima. Patient is stable at this moment.
[2020-01-08] VITALS: BP 112/32
[2020-01-08] MEDS: Ipratropium 0.02% Inh Soln 2.5ml UD HHN SCH ×4 (01:28→19:58)
[2020-01-08] MEDS ORDERED: Acetaminophen 650mg/20.3ml GT PRN ×2 (02:00)
--- NOTE | 2020-01-08 03:19 | NUR ---
NURSE NOTES: Sacral redness noted. Optifoam placed for protection. Picture uploaded for documentation. Patient able to self-reposition. Bed rails raised x3. Call light placed within reach. Will continue to monitor.
--- NOTE | 2020-01-08 03:32 | NUR ---
NURSE NOTES: Seen to be removing her nasal cannula while asleep. SpO2 96-100% off nasal cannula, but nasal cannula replaced on patient during rounds. Bed in lowest position, brakes engaged and bed alarm on. Bed rails raised x3. Will continue to monitor.
[2020-01-08 04:00] VITALS: BP 95/32
[2020-01-08] MEDS: NovoLOG Insulin Flexpen SUBQ SCH ×2 (05:25)
--- NOTE | 2020-01-08 06:27 | General Progress Note ---
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 - Other specified diabetes mellitus without complications SNOMED: 803384505 (2) Parkinson disease ICD Codes: G20 - Parkinson's disease SNOMED: 99257708 (3) Schizophrenia ICD Codes: F20.9 - Schizophrenia, unspecified SNOMED: 00682257 (4) Hypertension ICD Codes: I10 - Essential (primary) hypertension SNOMED: 57557669 (5) Respiratory failure ICD Codes: J96.90 - Respiratory failure, unspecified, unspecified whether with hypoxia or hypercapnia SNOMED: 280256531 (6) Hypothyroidism ICD Codes: E03.9 - Hypothyroidism, unspecified SNOMED: 51771698 (7) Diabetes mellitus type 2 in nonobese ICD Codes: E11.9 - Type 2 diabetes mellitus without complications SNOMED: 753559339 Status: progressing, unchanged Assessment/Plan: continue Levothyroxine 125 mcg daily DC glucose monitoring and Novolog coverage Subjective ROS Limited/Unobtainable: Yes Allergies: Coded Allergies: LITHIUM (Verified Allergy, Unknown, 02/07/19) Subjective events noted glucose values are normal Item Value Date Time Bedside Blood Glucose 95 mg/dl 01/08/20 0600 Bedside Blood Glucose 99 mg/dl 01/08/20 0000 Bedside Blood Glucose 95 mg/dl 01/07/20 1800 Bedside Blood Glucose 104 mg/dl 01/07/20 1200 Bedside Blood Glucose 102 mg/dl 01/07/20 0519 Bedside Blood Glucose 104 mg/dl 01/06/20 2324 Objective Last 24 Hour Vital Signs Date Time Temp Pulse Resp B/P (MAP) Pulse Ox O2 Delivery O2 Flow Rate FiO2 01/08/20 04:00 79 01/08/20 04:00 97.7 82 19 95/32 (53) 95 01/08/20 04:00 2.0 01/08/20 01:30 72 20 100 Nasal Cannula 2.0 28 70 20 98 01/08/20 00:00 2.0 01/08/20 00:00 71 01/08/20 00:00 96.8 72 19 112/32 (58) 100 01/07/20 22:30 96.3 72 17 118/34 (62) 96 01/07/20 22:30 Nasal Cannula 2.0 01/07/20 20:00 97.5 71 20 107/43 (64) 100 01/07/20 20:00 Venturi Mask 14.0 01/07/20 19:06 99 Nasal Cannula 3.0 32 01/07/20 19:05 74 20 100 Nasal Cannula 3.0 32 73 20 99 01/07/20 19:03 71 01/07/20 18:00 3.0 01/07/20 16:00 97.7 70 18 109/40 (63) 100 01/07/20 16:00 4.0 31 01/07/20 16:00 64 01/07/20 16:00 Venturi Mask 14.0 01/07/20 13:06 72 20 100 Venturi Mask 4.0 31 63 22 97 01/07/20 12:00 4.0 31 01/07/20 12:00 97.5 69 18 107/40 (62) 95 01/07/20 12:00 Venturi Mask 14.0 01/07/20 12:00 69 01/07/20 09:00 4.0 31 01/07/20 08:00 97.7 72 18 126/45 (72) 99 01/07/20 08:00 70 01/07/20 08:00 Venturi Mask 14.0 01/07/20 07:43 71 20 99 Venturi Mask 4.0 31 68 20 96 01/07/20 07:43 96 Venturi Mask 4.0 30 Intake and Output 01/07/20 01/08/20 19:00 07:00 Intake Total 1050 ml 350 ml Balance 1050 ml 350 ml Intake Oral 750 ml IV Total 300 ml 350 ml # Voids 1 1 Laboratory Tests 01/07/20 11:37: POC Whole Blood Glucose 104 01/07/20 16:49: POC Whole Blood Glucose 95 01/08/20 00:05: POC Whole Blood Glucose 99 01/08/20 05:05: POC Whole Blood Glucose 95 Height (Feet): 5 Height (Inches): 7.00 Weight (Pounds): 202 General Appearance: no apparent distress Neck: normal alignment Cardiovascular: normal rate Respiratory/Chest: decreased breath sounds Abdomen: normal bowel sounds Objective Current Medications Medications (Trade) Dose Ordered Sig/Angie Route PRN Reason Start Time Stop Time Status Last Admin Dose Admin Acetaminophen (Tylenol) 650 mg Q6H PRN GT Mild Pain (Pain Scale 1-3) 01/08/20 02:00 01/31/20 13:59 Acetaminophen (Tylenol) 1,000 mg Q6H PRN GT Moderate Pain (Pain Scale 4-6) 01/08/20 02:00 01/31/20 13:59 Amantadine HCl (Symmetrel) 100 mg TWICE A DAY ORAL 01/08/20 09:00 01/11/20 08:59 Aspirin (ASA) 325 mg DAILY NG 01/08/20 09:00 02/16/20 08:59 Atorvastatin Calcium (Lipitor) 10 mg BEDTIME NG 01/08/20 21:00 03/11/20 20:59 Clonidine HCl (Catapres Tab) 0.1 mg Q6H PRN NG For high BP over 160 systolic 01/08/20 02:15 03/11/20 12:30 Dextrose 1,000 ml @ 50 mls/hr Q20H IV 01/07/20 22:30 02/05/20 11:29 01/07/20 22:52 Dextrose (Dextrose 50%) 25 ml Q30M PRN IV Hypoglycemia 01/07/20 22:45 03/12/20 07:14 Dextrose (Dextrose 50%) 50 ml Q30M PRN IV Hypoglycemia 01/07/20 22:45 03/12/20 07:14 Divalproex Sodium (Depakote) 250 mg EVERY 12 HOURS ORAL 01/08/20 09:00 01/12/20 20:59 Docusate Sodium (Colace) 100 mg TWICE A DAY ORAL 01/08/20 09:00 02/06/20 08:59 Insulin Aspart (NovoLOG) EVERY 6 HOURS SUBQ 01/08/20 00:00 03/12/20 11:59 Ipratropium [place] (Atrovent) 500 mcg Q6HRT HHN 01/08/20 01:00 01/11/20 12:59 01/08/20 01:28 Lactulose (Cephulac) 20 gm DAILY ORAL 01/08/20 09:00 02/06/20 08:59 Levothyroxine Sodium (Synthroid) 125 mcg DAILY@0630 NG 01/08/20 06:30 02/07/20 06:29 01/08/20 06:17 Nitroglycerin (Ntg) 0.4 mg Q5MIN X 3 DOSES PRN SL CHEST PAIN 01/07/20 22:30 01/10/20 21:44 Pantoprazole (Protonix) 40 mg EVERY 12 HOURS ORAL 01/08/20 09:00 02/05/20 20:59 Polyethylene Glycol (Miralax) 17 gm BEDTIME NG 01/08/20 21:00 01/18/20 20:59 Polyethylene Glycol (Miralax) 17 gm DAILYPRN PRN NG Constipation 01/08/20 19:00 01/23/20 18:59 Quetiapine Fumarate (SEROqueL) 50 mg Q12HR NG 01/08/20 09:00 02/05/20 20:59 Jabari Adams MD Jan 08, 2020 06:27
[2020-01-08] MEDS ORDERED: Levothyroxine 125mcg tab NG SCH (06:30)
[2020-01-08 08:00] VITALS: BP 115/30
--- NOTE | 2020-01-08 08:05 | NUR ---
NURSE NOTES: Received report from Flex/RN, Observed patient awake, lying semi-fowlers in bed, resting comfortably. On 2L nasal canula, No acute distress/SOB noted. IV on Left Hand Patent and intact. D5W running at 50cc/hr. Bed in low position and locked, Call light within reach, Encouraged to use call light when needed. Will continue plan of care.
[2020-01-08] MEDS ORDERED: Lactulose 20gm/30ml UDC ORAL SCH (09:00)
[2020-01-08] MEDS: Docusate 100mg cap ORAL SCH ×2 (09:04→17:13)
[2020-01-08] MEDS: Amantadine 100mg cap ORAL SCH ×2 (09:05→17:13)
--- NOTE | 2020-01-08 09:33 | Cardiac Electrophysiology PN ---
Assessment/Plan Assessment/Plan 1. S/P Recurrent respiratory failure with BNP of more than 19,000. Normal EF. On 2 liter NC 2. Bradycardia requiring atropine due to respiratory failure . No further 3. Bilateral UE edema. Venous Duplex was negative on 12/12/19. 4. History of Parkinson disease. 5. Hyperlipidemia. DW RN ng Subjective Subjective Alert in NAD on 2 liter nasal cannula. No events. RN at bedside.Transferred to Objective Last 24 Hour Vital Signs Date Time Temp Pulse Resp B/P (MAP) Pulse Ox O2 Delivery O2 Flow Rate FiO2 01/08/20 08:16 93 Nasal Cannula 2.0 28 01/08/20 08:16 72 18 99 Nasal Cannula 2.0 28 77 18 93 01/08/20 08:00 74 01/08/20 08:00 97.7 69 22 115/30 (58) 97 01/08/20 08:00 2.0 01/08/20 04:00 79 01/08/20 04:00 97.7 82 19 95/32 (53) 95 01/08/20 04:00 2.0 01/08/20 01:30 72 20 100 Nasal Cannula 2.0 28 70 20 98 01/08/20 00:00 2.0 01/08/20 00:00 71 01/08/20 00:00 96.8 72 19 112/32 (58) 100 01/07/20 22:30 96.3 72 17 118/34 (62) 96 01/07/20 22:30 Nasal Cannula 2.0 01/07/20 20:00 97.5 71 20 107/43 (64) 100 01/07/20 20:00 Venturi Mask 14.0 01/07/20 19:06 99 Nasal Cannula 3.0 32 01/07/20 19:05 74 20 100 Nasal Cannula 3.0 32 73 20 99 01/07/20 19:03 71 01/07/20 18:00 3.0 01/07/20 16:00 97.7 70 18 109/40 (63) 100 01/07/20 16:00 4.0 31 01/07/20 16:00 64 01/07/20 16:00 Venturi Mask 14.0 01/07/20 13:06 72 20 100 Venturi Mask 4.0 31 63 22 97 01/07/20 12:00 4.0 31 01/07/20 12:00 97.5 69 18 107/40 (62) 95 01/07/20 12:00 Venturi Mask 14.0 01/07/20 12:00 69 Intake and Output 01/07/20 01/08/20 19:00 07:00 Intake Total 1050 ml 350 ml Balance 1050 ml 350 ml Intake Oral 750 ml IV Total 300 ml 350 ml # Voids 1 1 Laboratory Tests Test 01/07/20 11:37 01/07/20 16:49 01/08/20 00:05 01/08/20 05:05 POC Whole Blood Glucose 104 MG/DL (74-106) 95 MG/DL (74-106) 99 MG/DL (74-106) 95 MG/DL (74-106) Objective HEAD AND NECK: No JVD. LUNGS: Coarse rhonchi. CARDIOVASCULAR: Regular S1 and S2 No G/R/M ABDOMEN: Soft. EXTREMITIES: Bilateral arm edema. Cameron Davies MD Jan 08, 2020 09:33
[2020-01-08] MEDS ORDERED: Acetaminophen 650mg/20.3ml ORAL PRN ×2 (10:00)
--- NOTE | 2020-01-08 10:08 | Nephrology Progress Note ---
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 Respiratory distress most likely secondary to pulmonary edema and or COPD exacerbation. Hyponatremia. Obese. Hypothyroidism. Elevated d-dimer. Elevated liver enzymes Plan January 07: No labs drawn today. Stable from renal standpoint of view January 06: Renal parameters stable. Subtherapeutic Depakote level. Continue per consultants. January 05: Stable from renal standpoint of view. Check iron panel ferritin and Depakote level today. Start 50 cc an hour D5W for rising serum sodium. January 04: No can panel done today. Renal parameters overall stable. Will check labs tomorrow. Discharge planning in process. Discussed with RN. January 03: Can panel reviewed. Renal parameters stable. Continue per consultants. Discharge planning in process. January 02: No labs done today. Stable from renal standpoint of view. January 01: Lab reviewed. Renal parameters stable. December 31: Lab reviewed. No new labs today. Renal parameters stable. Continue her consultants. December 30: Lab reviewed. Renal parameters stable. On 1 L oxygen with cannula. Patient agitated periodically. Due transfer to [facility]. December 29: Lab reviewed. Renal parameters stable. Now on Venturi mask. CO2 lower to 35. December 28: Lab reviewed: CO2 remains high: On BiPAP. Continue per pulmonary. Stable from renal standpoint of view. December 27: Lab reviewed. Continues to retain CO2. On Venturi mask. Continue per pulmonary. Stable from renal standpoint of view. December 26: Lab reviewed. ABG reviewed. Patient retaining CO2. Remains on BiPAP. Continue per pulmonary. Stable from renal standpoint of view. December 25: Lab reviewed. TSH remains high. On nonrebreathing mask. Renal parameters stable. Synthroid dose increased. IV fluids stopped. December 24: Lab reviewed. Still on BiPAP. Renal parameters stable. December 23: Lab reviewed. Remains on BiPAP. Agitated at times. ABG ordered. Serum sodium improved. December 22: Lab reviewed. On BiPAP. Stable from renal standpoint of view. Will follow serum sodium. December 21: Labs reviewed. On nonrebreather mask. D5W 50 cc an hour started for hypernatremia. Magnesium supplement given. Continue per consultants. December 20: Patient on weaning trial. No labs done today. Discussed with RN. Continue per consultants. December 19: Patient remains intubated. Renal parameters stable. Discussed with RN. Continue per consultants. December 18: Patient self extubated yesterday however was reintubated. Remains stable from renal standpoint of view. Discussed with RN. Discussed with Dr. Myers. December 17: Remains intubated. Remains full code. Failed weaning. Stable from renal standpoint of view. Continue per consultants. Discussed with DARREL [place]. December 16: Remains intubated. Full code. Weaning in process. Stable from renal standpoint of view. December 15: Remains vented. Electrolytes improved. Continue per consultants. December 14: Patient remains in ICU intubated on ventilator. Potassium low. Phosphorus low. Supplements given. Renal parameters are stable. Continue per consultants. December 13: Patient remains in ICU intubated on ventilator. Discussed with RN. Labs reviewed. Creatinine 1.3. Potassium supplements given. Mag sulfate IV 2 g given. Continue per consultants. December 12: Patient in ICU. Intubated on ventilator. Discussed with RN. Labs reviewed. Potassium supplement given. Continue per consultants. Arterial blood gas indicative of CO2 retention. Patient on the way to ICU for intubation. Continue per pulmonary management. Pulmonary support, Check 2D echocardiogram. Previous 2D echo had a 50% ejection fraction. Keep blood sugar and blood pressure in check. Thyroid panel. Monitor electrolytes and renal parameters. Afterload reduction. Diuretics Monitor serum calcium, supplements via NG tube. Per orders. Subjective ROS Limited/Unobtainable: No Constitutional: Reports: malaise Objective Objective Last 24 Hour Vital Signs Date Time Temp Pulse Resp B/P (MAP) Pulse Ox O2 Delivery O2 Flow Rate FiO2 01/08/20 08:16 93 Nasal Cannula 2.0 28 01/08/20 08:16 72 18 99 Nasal Cannula 2.0 28 77 18 93 01/08/20 08:00 74 01/08/20 08:00 97.7 69 22 115/30 (58) 97 01/08/20 08:00 2.0 01/08/20 04:00 79 01/08/20 04:00 97.7 82 19 95/32 (53) 95 01/08/20 04:00 2.0 01/08/20 01:30 72 20 100 Nasal Cannula 2.0 28 70 20 98 01/08/20 00:00 2.0 01/08/20 00:00 71 01/08/20 00:00 96.8 72 19 112/32 (58) 100 01/07/20 22:30 96.3 72 17 118/34 (62) 96 01/07/20 22:30 Nasal Cannula 2.0 01/07/20 20:00 97.5 71 20 107/43 (64) 100 01/07/20 20:00 Venturi Mask 14.0 01/07/20 19:06 99 Nasal Cannula 3.0 32 01/07/20 19:05 74 20 100 Nasal Cannula 3.0 32 73 20 99 01/07/20 19:03 71 01/07/20 18:00 3.0 01/07/20 16:00 97.7 70 18 109/40 (63) 100 01/07/20 16:00 4.0 31 01/07/20 16:00 64 01/07/20 16:00 Venturi Mask 14.0 01/07/20 13:06 72 20 100 Venturi Mask 4.0 31 63 22 97 01/07/20 12:00 4.0 31 01/07/20 12:00 97.5 69 18 107/40 (62) 95 01/07/20 12:00 Venturi Mask 14.0 01/07/20 12:00 69 Intake and Output 01/07/20 01/08/20 19:00 07:00 Intake Total 1050 ml 350 ml Balance 1050 ml 350 ml Intake Oral 750 ml IV Total 300 ml 350 ml # Voids 1 1 No can panel drawn today Laboratory Tests 01/07/20 11:37: POC Whole Blood Glucose 104 01/07/20 16:49: POC Whole Blood Glucose 95 01/08/20 00:05: POC Whole Blood Glucose 99 01/08/20 05:05: POC Whole Blood Glucose 95 Height (Feet): 5 Height (Inches): 7.00 Weight (Pounds): 225 General Appearance: no apparent distress Cardiovascular: normal rate Respiratory/Chest: decreased breath sounds Abdomen: soft Bryan Ochoa MD Jan 08, 2020 10:08
--- NOTE | 2020-01-08 10:13 | General Progress Note ---
Assessment/Plan Status: progressing, unchanged Assessment/Plan: Assessment - Resp failure - r/o COVID -- x 2 negative - COPD - HTN - Anemia - Abnormal LFT -anemia Recommendations - extubated now - Elevate HOB - abx - follow labs - f/u hepatitis serologies>>> neg -repeat labs -on oral diet now -drop in H&H without obvious bleed -repeat cbc in am -ppi -bowel regimen Subjective ROS Limited/Unobtainable: No Allergies: Coded Allergies: LITHIUM (Verified Allergy, Unknown, 02/07/19) Objective Last 24 Hour Vital Signs Date Time Temp Pulse Resp B/P (MAP) Pulse Ox O2 Delivery O2 Flow Rate FiO2 01/08/20 08:16 93 Nasal Cannula 2.0 28 01/08/20 08:16 72 18 99 Nasal Cannula 2.0 28 77 18 93 01/08/20 08:00 74 01/08/20 08:00 97.7 69 22 115/30 (58) 97 01/08/20 08:00 2.0 01/08/20 04:00 79 01/08/20 04:00 97.7 82 19 95/32 (53) 95 01/08/20 04:00 2.0 01/08/20 01:30 72 20 100 Nasal Cannula 2.0 28 70 20 98 01/08/20 00:00 2.0 01/08/20 00:00 71 01/08/20 00:00 96.8 72 19 112/32 (58) 100 01/07/20 22:30 96.3 72 17 118/34 (62) 96 01/07/20 22:30 Nasal Cannula 2.0 01/07/20 20:00 97.5 71 20 107/43 (64) 100 01/07/20 20:00 Venturi Mask 14.0 01/07/20 19:06 99 Nasal Cannula 3.0 32 01/07/20 19:05 74 20 100 Nasal Cannula 3.0 32 73 20 99 01/07/20 19:03 71 01/07/20 18:00 3.0 01/07/20 16:00 97.7 70 18 109/40 (63) 100 01/07/20 16:00 4.0 31 01/07/20 16:00 64 01/07/20 16:00 Venturi Mask 14.0 01/07/20 13:06 72 20 100 Venturi Mask 4.0 31 63 22 97 01/07/20 12:00 4.0 31 01/07/20 12:00 97.5 69 18 107/40 (62) 95 01/07/20 12:00 Venturi Mask 14.0 01/07/20 12:00 69 Intake and Output 01/07/20 01/08/20 19:00 07:00 Intake Total 1050 ml 350 ml Balance 1050 ml 350 ml Intake Oral 750 ml IV Total 300 ml 350 ml # Voids 1 1 Laboratory Tests 01/07/20 11:37: POC Whole Blood Glucose 104 01/07/20 16:49: POC Whole Blood Glucose 95 01/08/20 00:05: POC Whole Blood Glucose 99 01/08/20 05:05: POC Whole Blood Glucose 95 Height (Feet): 5 Height (Inches): 7.00 Weight (Pounds): 225 General Appearance: alert EENT: normal ENT inspection Neck: supple Cardiovascular: normal rate Respiratory/Chest: decreased breath sounds Abdomen: normal bowel sounds, non tender, soft Extremities: non-tender Kirk Vidal MD Jan 08, 2020 10:12
--- NOTE | 2020-01-08 11:37 | Pulmonology Progress Note ---
Subjective ROS Limited/Unobtainable: Yes Interval Events: None new Constitutional: Denies: fever HEENT: Repors: no symptoms Respiratory: Reports: no symptoms Cardiovascular: Reports: no symptoms Gastrointestinal/Abdominal: Reports: diarrhea Genitourinary: Reports: no symptoms Allergies: Coded Allergies: LITHIUM (Verified Allergy, Unknown, 02/07/19) All Systems: reviewed and negative except above Objective Last 24 Hour Vital Signs Date Time Temp Pulse Resp B/P (MAP) Pulse Ox O2 Delivery O2 Flow Rate FiO2 01/08/20 09:00 Nasal Cannula 2.0 01/08/20 08:16 93 Nasal Cannula 2.0 28 01/08/20 08:16 72 18 99 Nasal Cannula 2.0 28 77 18 93 01/08/20 08:00 74 01/08/20 08:00 97.7 69 22 115/30 (58) 97 01/08/20 08:00 2.0 01/08/20 04:00 79 01/08/20 04:00 97.7 82 19 95/32 (53) 95 01/08/20 04:00 2.0 01/08/20 01:30 72 20 100 Nasal Cannula 2.0 28 70 20 98 01/08/20 00:00 2.0 01/08/20 00:00 71 01/08/20 00:00 96.8 72 19 112/32 (58) 100 01/07/20 22:30 96.3 72 17 118/34 (62) 96 01/07/20 22:30 Nasal Cannula 2.0 01/07/20 20:00 97.5 71 20 107/43 (64) 100 01/07/20 20:00 Venturi Mask 14.0 01/07/20 19:06 99 Nasal Cannula 3.0 32 01/07/20 19:05 74 20 100 Nasal Cannula 3.0 32 73 20 99 01/07/20 19:03 71 01/07/20 18:00 3.0 01/07/20 16:00 97.7 70 18 109/40 (63) 100 01/07/20 16:00 4.0 31 01/07/20 16:00 64 01/07/20 16:00 Venturi Mask 14.0 01/07/20 13:06 72 20 100 Venturi Mask 4.0 31 63 22 97 7/27/20 12:00 4.0 31 01/07/20 12:00 97.5 69 18 107/40 (62) 95 01/07/20 12:00 Venturi Mask 14.0 01/07/20 12:00 69 Intake and Output 01/07/20 01/08/20 19:00 07:00 Intake Total 1050 ml 350 ml Balance 1050 ml 350 ml Intake Oral 750 ml IV Total 300 ml 350 ml # Voids 1 1 General Appearance: no acute distress Respiratory: chest wall non-tender, lungs clear Cardiovascular: normal peripheral pulses, normal rate Abdomen: normal bowel sounds Laboratory Tests 01/07/20 16:49: POC Whole Blood Glucose 95 01/08/20 00:05: POC Whole Blood Glucose 99 01/08/20 05:05: POC Whole Blood Glucose 95 Current Medications Medications (Trade) Dose Ordered Sig/Angie Route PRN Reason Start Time Stop Time Status Last Admin Dose Admin Acetaminophen (Tylenol) 650 mg Q6H PRN ORAL Mild Pain (Pain Scale 1-3) 01/08/20 10:00 01/31/20 13:59 Acetaminophen (Tylenol) 1,000 mg Q6H PRN ORAL Moderate Pain (Pain Scale 4-6) 01/08/20 10:00 01/31/20 13:59 Amantadine HCl (Symmetrel) 100 mg TWICE A DAY ORAL 01/08/20 09:00 01/11/20 08:59 01/08/20 09:05 Aspirin (ASA) 325 mg DAILY ORAL 01/09/20 09:00 02/16/20 08:59 Atorvastatin Calcium (Lipitor) 10 mg BEDTIME ORAL 01/08/20 21:00 03/11/20 20:59 Clonidine HCl (Catapres Tab) 0.1 mg Q6H PRN ORAL For high BP over 160 systolic 01/08/20 10:00 03/11/20 12:30 Dextrose 1,000 ml @ 50 mls/hr Q20H IV 01/07/20 22:30 02/05/20 11:29 01/07/20 22:52 Dextrose (Dextrose 50%) 25 ml Q30M PRN IV Hypoglycemia 01/07/20 22:45 03/12/20 07:14 Dextrose (Dextrose 50%) 50 ml Q30M PRN IV Hypoglycemia 01/07/20 22:45 03/12/20 07:14 Divalproex Sodium (Depakote Sprinkles) 250 mg Q12HR ORAL 01/08/20 21:00 02/22/20 20:59 Docusate Sodium (Colace) 100 mg TWICE A DAY ORAL 01/08/20 09:00 02/06/20 08:59 01/08/20 09:04 Ipratropium [place] (Atrovent) 500 mcg Q6HRT HHN 01/08/20 01:00 01/11/20 12:59 01/08/20 08:16 Lactulose (Cephulac) 20 gm BID ORAL 01/08/20 18:00 02/07/20 17:59 Lansoprazole (Prevacid) 30 mg BIAC ORAL 01/08/20 16:30 02/07/20 16:29 Levothyroxine Sodium (Synthroid) 125 mcg DAILY@0630 ORAL 01/09/20 06:30 02/07/20 06:29 Nitroglycerin (Ntg) 0.4 mg Q5MIN X 3 DOSES PRN SL CHEST PAIN 01/07/20 22:30 01/10/20 21:44 Pantoprazole (Protonix) 40 mg EVERY 12 HOURS ORAL 01/08/20 09:00 02/05/20 20:59 01/08/20 09:03 Polyethylene Glycol (Miralax) 17 gm BEDTIME ORAL 01/08/20 21:00 01/18/20 20:59 Polyethylene Glycol (Miralax) 17 gm DAILYPRN PRN ORAL Constipation 01/08/20 19:00 01/23/20 18:59 Quetiapine Fumarate (SEROqueL) 50 mg Q12HR ORAL 01/08/20 21:00 02/05/20 20:59 Assessment/Plan Assessment/Plan IMPRESSION: 1. Respiratory failure. Improved; now on nasal o2 2. Has healthcare-associated pneumonia; is negative for COVID-19. 3. Psych disorder. 4. Obesity. 5. Hypertension. 6. Hypernatremia DISCUSSION: Has negative COVID-19 swab. On Seroquel; on decreased dose Off steroids Off Lasix and Diamox Has diuresed well DC to snf Sincere Tirmizi, M.D. Tirmizi,Sincere Brady MD Jan 08, 2020 11:37
[2020-01-08 12:00] VITALS: BP 113/36
--- NOTE | 2020-01-08 12:15 | Hematology/Onc Progress Note ---
Assessment/Plan Assessment/Plan # Lower extremity edema in setting of elevated ddimer --> lower ext duplex ordered to r/o dvt-->neg for dvt --> lovenox sq has been started --> low threshold for v/q or cta r/o pe # Anemia of chronic disease --> hgb 11-->10.-->9->11.9-->10.8->7.8->11->10.8->10.2-->9.6->9.5->10.8-->12--> 10->10.3->11>9.3 --> no e/o hemolysis --> no bleeding reported --> smear reviewed --> no go bleeding --> asa to continue # Leukocytosis r/o infection, likely steriods related --> wbc trend 10==>12-->14->15-->12-->14>6.2 --> steriods off --> abx off # Respiratory failure with copd exacerbation likely --> pulm toilet --> breathing rx --> steroids prn basis --> pulm eval ---> ABX per is on zosyn->now off # 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 ( combination of moderate aortic regurgitation and severe mitral regurgitation) --> diuresis as per cards --> lasix last time # Severe ascending aortic dilatation --> per shannan, Dr Davies # Hypertension # Parkinson disease # Hyperlipidemia # Hypothyroidism # Dementia # Obesity # Schizophrenia --> as per [facility] --> restraints # Dvt ppx lovenox sq/scd's Appreciate car sales consultant care and alexei Rn Subjective Constitutional: Denies: no symptoms, chills, fever, malaise, weakness, other HEENT: Denies: no symptoms, eye pain, blurred vision, tearing, double vision, ear pain, ear discharge, nose pain, nose congestion, throat pain, throat swelling, mouth pain, mouth swelling, other Cardiovascular: Denies: no symptoms, chest pain, edema, irregular heart rate, lightheadedness, palpitations, syncope, other Respiratory: Denies: no symptoms, cough, shortness of breath, SOB with excertion, SOB at rest, sputum, wheezing, other Gastrointestinal/Abdominal: Denies: no symptoms, abdomen distended, abdominal pain, black stools, tarry stools, blood in stool, constipated, diarrhea, difficulty swallowing, nausea, poor appetite, poor fluid intake, rectal bleeding , vomiting, other Genitourinary: Denies: no symptoms, burning, discharge, frequency, flank pain, hematuria, incontinence, pain, urgency, other Neurologic/Psychiatric: Denies: no symptoms, anxiety, depressed, emotional problems, headache, numbness, paresthesia, pre-existing deficit, seizure, tingling, tremors, weakness, other Endocrine: Denies: no symptoms, excessive sweating, flushing, intolerance to cold, intolerance to heat, increased hunger, increased thirst, increased urine, unexplained weight gain, unexplained weight loss, other Allergies: Coded Allergies: LITHIUM (Verified Allergy, Unknown, 02/07/19) Subjective 12/12 labs are reviewed, intubated, with og, somewhat responsive, alexei rn 12/13 labs noted, hgb 7.8, tfs ok to start per gi 12/15 icu, restraints, no acute events, hep panel negative, sedated 12/16 no bleeding, in the icu, on abx, in restarints, sleepy, vent 12/17 is on vent, also is on abx, awake, with ogt 12/18 ng placed, hgb 9.6, no bleeding, no night sweats 12/19 labs reviewed, sedated, on vent, nob leeding, meds reviewed 12/20 remains on vent, audra bleeding, meds reviewed, no night sweats 12/22 hgb 9.5, to get zosyn x 1 more day, no night sweats meds reviewed 12/23 labs noted, no bleeding, with fm, no bleeding or night sweats 12/24 no bleeding, labs noted, no night sweats hgb 10, no hemolysis 12/25 remains fatigued, fm, labs are still pending from am 12/26 restraints, v mask, cxr reviewed 12/27 labs reviewed, no bleeding, hgb 10.8, no hemolysis on FM 12/29 remains disoriented on bipap and fm as needed, hgb better 12/30 wbc 15k, no bleeding, dw rn, no night sweats off abx 12/31 wbc remains elevated, arousable, no bleeding, on fm 01/01 meds noted, labs reviewed, no bleeding on exam 01/02 refusing labs this am, no bleeding, meds noted, no hemolysis 01/03 no bleeding, meds noted, no night sweats, cbc pend 01/04 labs noted, no bleeding, cbc has been ordered for am, seen by gi, renal 01/05 asleep, labs noted, meds revoewed.no bleeding 01/06 pending placement, no night sweats, meds have been reviewed 01/07 labs are reviewed, no bleeding, hgb 9.3, no hemolysis seen Objective Objective Current Medications Medications (Trade) Dose Ordered Sig/Angie Route PRN Reason Start Time Stop Time Status Last Admin Dose Admin Acetaminophen (Tylenol) 650 mg Q6H PRN ORAL Mild Pain (Pain Scale 1-3) 01/08/20 10:00 01/31/20 13:59 Acetaminophen (Tylenol) 1,000 mg Q6H PRN ORAL Moderate Pain (Pain Scale 4-6) 01/08/20 10:00 01/31/20 13:59 Amantadine HCl (Symmetrel) 100 mg TWICE A DAY ORAL 01/08/20 09:00 01/11/20 08:59 01/08/20 09:05 Aspirin (ASA) 325 mg DAILY ORAL 01/09/20 09:00 02/16/20 08:59 Atorvastatin Calcium (Lipitor) 10 mg BEDTIME ORAL 01/08/20 21:00 03/11/20 20:59 Clonidine HCl (Catapres Tab) 0.1 mg Q6H PRN ORAL For high BP over 160 systolic 01/08/20 10:00 03/11/20 12:30 Dextrose 1,000 ml @ 50 mls/hr Q20H IV 01/07/20 22:30 02/05/20 11:29 01/07/20 22:52 Dextrose (Dextrose 50%) 25 ml Q30M PRN IV Hypoglycemia 01/07/20 22:45 03/12/20 07:14 Dextrose (Dextrose 50%) 50 ml Q30M PRN IV Hypoglycemia 01/07/20 22:45 03/12/20 07:14 Divalproex Sodium (Depakote Sprinkles) 250 mg Q12HR ORAL 01/08/20 21:00 02/22/20 20:59 Docusate Sodium (Colace) 100 mg TWICE A DAY ORAL 01/08/20 09:00 02/06/20 08:59 01/08/20 09:04 Ipratropium [place] (Atrovent) 500 mcg Q6HRT HHN 01/08/20 01:00 01/11/20 12:59 01/08/20 08:16 Lactulose (Cephulac) 20 gm BID ORAL 01/08/20 18:00 02/07/20 17:59 Lansoprazole (Prevacid) 30 mg BIAC ORAL 01/08/20 16:30 02/07/20 16:29 Levothyroxine Sodium (Synthroid) 125 mcg DAILY@0630 ORAL 01/09/20 06:30 02/07/20 06:29 Nitroglycerin (Ntg) 0.4 mg Q5MIN X 3 DOSES PRN SL CHEST PAIN 01/07/20 22:30 01/10/20 21:44 Pantoprazole (Protonix) 40 mg EVERY 12 HOURS ORAL 01/08/20 09:00 02/05/20 20:59 01/08/20 09:03 Polyethylene Glycol (Miralax) 17 gm BEDTIME ORAL 01/08/20 21:00 01/18/20 20:59 Polyethylene Glycol (Miralax) 17 gm DAILYPRN PRN ORAL Constipation 01/08/20 19:00 01/23/20 18:59 Quetiapine Fumarate (SEROqueL) 50 mg Q12HR ORAL 01/08/20 21:00 02/05/20 20:59 Last 24 Hour Vital Signs Date Time Temp Pulse Resp B/P (MAP) Pulse Ox O2 Delivery O2 Flow Rate FiO2 01/08/20 09:00 Nasal Cannula 2.0 01/08/20 08:16 93 Nasal Cannula 2.0 28 01/08/20 08:16 72 18 99 Nasal Cannula 2.0 28 77 18 93 01/08/20 08:00 74 01/08/20 08:00 97.7 69 22 115/30 (58) 97 01/08/20 08:00 2.0 01/08/20 04:00 79 01/08/20 04:00 97.7 82 19 95/32 (53) 95 01/08/20 04:00 2.0 01/08/20 01:30 72 20 100 Nasal Cannula 2.0 70 20 98 01/08/20 00:00 2.0 01/08/20 00:00 71 01/08/20 00:00 96.8 72 19 112/32 (58) 100 01/07/20 22:30 96.3 72 17 118/34 (62) 96 01/07/20 22:30 Nasal Cannula 2.0 01/07/20 20:00 97.5 71 20 107/43 (64) 100 01/07/20 20:00 Venturi Mask 14.0 01/07/20 19:06 99 Nasal Cannula 3.0 32 01/07/20 19:05 74 20 100 Nasal Cannula 3.0 32 73 20 99 01/07/20 19:03 71 01/07/20 18:00 3.0 01/07/20 16:00 97.7 70 18 109/40 (63) 100 01/07/20 16:00 4.0 31 01/07/20 16:00 64 01/07/20 16:00 Venturi Mask 14.0 01/07/20 13:06 72 20 100 Venturi Mask 4.0 31 63 22 97 01/07/20 12:00 4.0 31 01/07/20 12:00 97.5 69 18 107/40 (62) 95 01/07/20 12:00 Venturi Mask 14.0 01/07/20 12:00 69 01/07/20 09:00 4.0 31 01/07/20 08:00 97.7 72 18 126/45 (72) 99 01/07/20 08:00 70 01/07/20 08:00 Venturi Mask 14.0 01/07/20 07:43 71 20 99 Venturi Mask 4.0 31 68 20 96 01/07/20 07:43 96 Venturi Mask 4.0 30 01/07/20 04:00 4.0 31 01/07/20 04:00 Venturi Mask 14.0 01/07/20 03:55 97.8 69 18 118/44 (68) 99 01/07/20 03:28 68 01/07/20 01:04 76 17 100 Venturi Mask 4.0 31 74 18 100 01/07/20 00:00 4.0 31 01/07/20 00:00 Venturi Mask 14.0 01/07/20 00:00 97.6 74 18 129/78 (95) 100 01/06/20 23:30 74 01/06/20 21:02 14.0 55 01/06/20 20:05 99 Venturi Mask 4.0 31 01/06/20 20:03 75 22 100 Venturi Mask 4.0 31 74 22 99 01/06/20 20:00 4.0 40 01/06/20 20:00 97.9 78 18 121/87 (98) 100 01/06/20 20:00 Venturi Mask 14.0 01/06/20 19:32 80 01/06/20 16:00 73 01/06/20 16:00 Venturi Mask 14.0 01/06/20 16:00 97.7 71 19 128/48 (74) 98 01/06/20 16:00 4.0 01/06/20 13:04 75 22 99 Venturi Mask 4.0 31 70 17 98 01/06/20 12:33 4.0 Intake and Output 01/07/20 01/08/20 19:00 07:00 Intake Total 1050 ml 350 ml Balance 1050 ml 350 ml Intake Oral 750 ml IV Total 300 ml 350 ml # Voids 1 1 Labs Test 01/05/20 16:53 01/06/20 00:32 01/06/20 05:25 01/06/20 05:30 POC Whole Blood Glucose 125 MG/DL (74-106) 123 MG/DL (74-106) Phosphorus Level 3.0 MG/DL (2.5-4.9) Magnesium Level 1.9 MG/DL (1.8-2.4) Total Bilirubin 0.7 MG/DL (0.2-1.0) Direct Bilirubin 0.2 MG/DL (0.0-0.3) Aspartate Amino Transf (AST/SGOT) 13 U/L (15-37) Alanine Aminotransferase (ALT/SGPT) 18 U/L (12-78) Alkaline Phosphatase 42 U/L (46-116) Total Protein 6.0 G/DL (6.4-8.2) Albumin 2.5 G/DL (3.4-5.0) White Blood Count 6.1 K/UL (4.8-10.8) Red Blood Count 2.90 M/UL (4.20-5.40) Hemoglobin 9.3 G/DL (12.0-16.0) Hematocrit 29.3 % (37.0-47.0) Mean Corpuscular Volume 101 FL (80-99) Mean Corpuscular Hemoglobin 32.0 PG (27.0-31.0) Mean Corpuscular Hemoglobin Concent 31.7 G/DL (32.0-36.0) Red Cell Distribution Width 13.0 % (11.6-14.8) Platelet Count 171 K/UL (150-450) Mean Platelet Volume 6.6 FL (6.5-10.1) Neutrophils (%) (Auto) 75.2 % (45.0-75.0) Lymphocytes (%) (Auto) 17.3 % (20.0-45.0) Monocytes (%) (Auto) 5.8 % (1.0-10.0) Eosinophils (%) (Auto) 1.4 % (0.0-3.0) Basophils (%) (Auto) 0.3 % (0.0-2.0) Sodium Level 150 MMOL/L (136-145) Potassium Level 3.6 MMOL/L (3.5-5.1) Chloride Level 110 MMOL/L (98-107) Carbon Dioxide Level 39 MMOL/L (21-32) Anion Gap 1 mmol/L (5-15) Blood Urea Nitrogen 31 mg/dL (7-18) Creatinine 0.7 MG/DL (0.55-1.30) Estimat Glomerular Filtration Rate > 60 mL/min (>60) Glucose Level 112 MG/DL (74-106) Calcium Level 8.8 MG/DL (8.5-10.1) Ferritin 280 NG/ML (8-388) Valproic Acid (Depakene) Level 6 MCG/ML (50-100) Test 01/06/20 06:09 01/06/20 23:20 01/07/20 03:49 01/07/20 05:09 POC Whole Blood Glucose 93 MG/DL (74-106) White Blood Count 6.2 K/UL (4.8-10.8) Red Blood Count 2.87 M/UL (4.20-5.40) Hemoglobin 9.3 G/DL (12.0-16.0) Hematocrit 28.5 % (37.0-47.0) Mean Corpuscular Volume 99 FL (80-99) Mean Corpuscular Hemoglobin 32.5 PG (27.0-31.0) Mean Corpuscular Hemoglobin Concent 32.8 G/DL (32.0-36.0) Red Cell Distribution Width 12.9 % (11.6-14.8) Platelet Count 159 K/UL (150-450) Mean Platelet Volume 5.8 FL (6.5-10.1) Neutrophils (%) (Auto) 71.4 % (45.0-75.0) Lymphocytes (%) (Auto) 20.3 % (20.0-45.0) Monocytes (%) (Auto) 6.2 % (1.0-10.0) Eosinophils (%) (Auto) 1.7 % (0.0-3.0) Basophils (%) (Auto) 0.4 % (0.0-2.0) Sodium Level 148 MMOL/L (136-145) Potassium Level 3.7 MMOL/L (3.5-5.1) Chloride Level 108 MMOL/L (98-107) Carbon Dioxide Level 40 MMOL/L (21-32) Anion Gap -1 mmol/L (5-15) Blood Urea Nitrogen 31 mg/dL (7-18) Creatinine 0.8 MG/DL (0.55-1.30) Estimat Glomerular Filtration Rate > 60 mL/min (>60) Glucose Level 110 MG/DL (74-106) Calcium Level 8.6 MG/DL (8.5-10.1) Iron Level 84 ug/dL (50-175) Total Iron Binding Capacity 190 ug/dL (250-450) Percent Iron Saturation 44 % (15-50) Unsaturated Iron Binding 106 ug/dL (112-346) Test 01/07/20 11:37 01/07/20 16:49 01/08/20 00:05 01/08/20 05:05 POC Whole Blood Glucose 104 MG/DL (74-106) 95 MG/DL (74-106) 99 MG/DL (74-106) 95 MG/DL (74-106) Height (Feet): 5 Height (Inches): 7.00 Weight (Pounds): 225 Objective Vitals: reviewed General: NAD HEENT: nc, at ++ngt, facemask+ Neck: supple Chest: decreased breath sounds bilaterally Cardiovascular: RRR, no s3, s4 Abdomen: soft, nontender, nd Extremities: 1-2 + edema, scd's Neuro: nonverbal : iman+ Frank Escobar MD Jan 08, 2020 12:15
--- NOTE | 2020-01-08 13:43 | NUR ---
ST NOTE SWALLOW STATUS/WEEKLY SUMMARY PATIENT CLEARED FOR ST INTERVENTION BY DARREL WILSON. PATIENT WAS SEEN 4 TIMES THIS PAST WEEK, OFTEN IN CONTEXT OF MEALTIME. SHE IS TOLERATING HER CURRENT DIET RELATIVE TO INTAKE. WHILE THIS CLINICIAN WAS FEEDING THE PATIENT HER NOON MEAL TODAY, SHE PRESENTED WITH WET UPPER AIRWAY SOUNDS POST SWALLOW. COUGH (PRODUCTIVE/CLEARING COUGH) X 2 DURING THE MEAL. 100% INTAKE WITH PUREE SOLIDS AND NECTAR THICK LIQUIDS. THE LAST CXR IS FROM 12/29. CURRENTLY, RN DESCRIBES PULMONARY STATUS "CONGESTED". PATIENT REMAINS TOTALLY DEPENDENT ON STAFF FOR P.O. INTAKE. HE BASELINE RESPIRATION RATE REMAINS IN THE MID 20'S. TREATMENT GOALS MET THIS WEEK FOR SUFFICIENT P.O. INTAKE TO SUPPORT NUTRITION/HYDRATION NEEDS, BUT CONCERN REMAINS RELATIVE TO PULMONARY STATUS AND HER POTENTIAL FOR SILENT ASPIRATION. RECOMMENDATIONS: 1. CONTINUE CURRENT DIET TEXTURE OF PUREE WITH NECTAR THICK LIQUIDS 2. MEALTIME PROTOCOL POSTED AT BEDSIDE. 3. CONSIDER CURRENT CXR TO DETERMINE PULMONARY STATUS 4. GOAL MET FOR STAFF TRAINING/RETURN DEMONSTRATION WITH MEALTIME PROTOCOL 5. ST TO CONTINUE DURING LENGTH OF STAY FOR DIET TEXTURE UPGRADE TRIALS. THANK YOU FOR THIS REFERRAL.. RECOMMENDATIONS: 1. CONTINUE CURRENT DIET WITH TOTAL ASSIST AT MEALS AND USE OF ASPIRATION PRECAUTIONS (POSTED AT BEDSIDE) 2. INITIAL IMPRESSIONS: PATIENT CLEARED FOR ST INTERVENTION BY DARREL PETERSEN. PATIENT RECEIVED ALERT AND ORIENTED TO SPEAKER. PER CHART REVIEW/PULMONARY PROGRESS NOTE 01/06/AT 7:43 AM: PATIENTS LUNGS ARE CLEAR. SHE CONTINUES TO HAVE DIFFICULTY WITH CO2 RETENTION. PER RD NOTE (01/06) PATIENTS P.O. INTAKE REMAINS VARIABLE BUT SUFFICIENT TO SUPPORT NUTRITION/HYDRATION NEEDS. PATIENT WAS NOT ORIENTED TO PLACE, SITUATION, MONTH OR YEAR. VITALS ON 4 LIT VIA VENTURI MASK: : Fi02 31%; HR: 73; RR: 20; SP02 98%; PRIOR TO P.O. TRIALS, PATIENT WAS POSITIONED AT 90 DEGREES UPRIGHT. PRELIMINARY TO P.O., AN ORAL MOTOR ASSESSMENT WAS COMPLETED: ORAL CAVITY CLEAR, MUCOSA DRY. WHEN ASKED IF HER MOUTH WAS DRY, THE PATIENT RESPONDED "ALL THE TIME". WHEN PRESENTED WITH P.O. TRIALS OF PUREE (2 OZ) AND NECTAR THICK WATER (4OZ) VIA SPOON, PATIENT PRESENTED WITH DELAY IN ORAL PREPARATION AND ORAL TRANSFER INCLUDING DELAY IN INITIATION OF PHARYNGEAL PHASE OF SWALLOW. RR REMAINED BELOW 20 BPM THROUGHOUT THESE TRIALS. 02 SATURATION REMAINED >90% PATIENTS VOCAL QUALITY REMAINED CLEAR THROUGHOUT THIS SESSION. HER VOICING OCCURS IN BURSTS, SHE HAS DIFFICULTY SUSTAINING PHONATION MORE THAN 5-6 SECONDS. WITH PROLONGED TALKING, HER RESPIRATION RATE INCREASES TO MID 20'S. PER CHART REVIEW, SHE APPEARS TO BE TOLERATING HER CURRENT WITH NO OVERT S/S OF ASPIRATION. DURING THESE TRIALS SHE DID NOT DEMONSTRATE THROAT CLEARING OR COUGH IN RESPONSE TO BOTH VISCOSITIES. RECOMMENDATIONS 1. CONTINUE CURRENT DIET WITH CAREFUL MEALTIME PROTOCOL. 2. INCLUDE MOUTH MOISTENER WITH DAILY ORAL CARE TO ADDRESS XEROSTOMIA 3. FISHER DIVING TO CONTINUE TO MONITOR DIET TOLERANCE, REVIEW MEALTIME PROTOCOL WITH NA/RN (DISCHARGE PLANNING STILL UNDERWAY, NO PLACEMENT HAS BEEN IDENTIFIED).
--- NOTE | 2020-01-08 14:14 | Diagnostic Imaging Report ---
Procedure: XRAY Chest 1v Reason for study: Reason For Exam: SOB Comparison films: 12/30/2019. FINDINGS: A single one view chest is obtained. Vascularity is normal. Basilar densities noted likely mild atelectasis. Cardiomegaly and tortuous aorta unchanged. No large effusion seen. The bony thorax appear unremarkable. IMPRESSION: Basilar atelectasis.
--- NOTE | 2020-01-08 14:32 | NUR ---
CASE MANAGEMENT: DCP PATIENT REFERRED TO JESUS MORALES [phone] CHART IS BEING REVIEWED. CM WILL FOLLOW UP
--- NOTE | 2020-01-08 14:36 | NUR ---
CASE MANAGEMENT: REVIEW SI: COPD EXACERBATION . PNA T 97.5 HR 64 RR 24 BP 95/32 SAT 95% NC/3L GLUCOSE 95 IS: SYNTHROID GT Q12HR PROTONIX IV Q12HR SEROQUEL PO Q12HR LACTULOSE PO BID TELEMETRY UNIT STATUS DCP: PATIENT IS FROM [facility].
--- NOTE | 2020-01-08 14:52 | NUR ---
RADIOLOGY DEPT., CHEST X-RAY DONE.-P.DYE
--- NOTE | 2020-01-08 15:26 | NUR ---
P.T Weekly Progress Notes: Pt is being seen this past week of skilled P.T. Pt responded well from the tx sessions. Pt currently require MIN/MOD A X 1 for Bed Mobilities and Transfer activities. Pt able to ambulate and tolerate 10 ft using the FWW with MIN A X 1. Pt is impulsive and requires constant redirections towards safe mobility. Pt should continue to benefit from skilled P.T service. Will continue to be seen with progression of activities until DC. Recommend SNF for further rehab intervention. Addendum: 01/08/20 at 1536 by JONY IGNACIO PT Amended: Links added.
[2020-01-08 16:00] VITALS: BP 108/32
[2020-01-08] MEDS: Lactulose 20gm/30ml UDC ORAL SCH (17:24)
[2020-01-08] MEDS ORDERED: Miralax 17gm pkt ORAL PRN (19:00)
--- NOTE | 2020-01-08 19:20 | NUR ---
HAND-OFF: Report given to Kiera/RN, Patient is in stable condition. Endorsed plan of care.
--- NOTE | 2020-01-08 19:25 | NUR ---
NURSE NOTES: Received pt and report from DARREL Christensen. Observed pt resting in bed with both eyes open. Pt is A/Ox2. manager monitoring is in placed; pt NSR. IV site intact, asymptomatic, and patent; running D5W @50cc/hr. Bed is in the lowest position and locked. Call light and bedside table is within reach. No signs/symptoms of acute distress noted at this time. Will continue plan of care.
[2020-01-08 20:00] VITALS: BP 119/49
[2020-01-08] MEDS: Miralax 17gm pkt ORAL SCH (20:46)
[2020-01-08] MEDS: Depakote 125mg Sprinkles ORAL SCH (20:47)
--- NOTE | 2020-01-08 21:43 | General Progress Note ---
Assessment/Plan Problem List: (1) Dyspnea ICD Codes: R06.00 - Dyspnea, unspecified SNOMED: 192804041 (2) Hypothyroidism ICD Codes: E03.9 - Hypothyroidism, unspecified SNOMED: 02617485 (3) Obese ICD Codes: E66.9 - Obesity, unspecified SNOMED: 379482211, 993496182 (4) Psychosis ICD Codes: F29 - Unspecified psychosis not due to a substance or known physiological condition SNOMED: 27763270 (5) Respiratory failure ICD Codes: J96.90 - Respiratory failure, unspecified, unspecified whether with hypoxia or hypercapnia SNOMED: 550669552 (6) Respiratory distress ICD Codes: R06.03 - Acute respiratory distress SNOMED: 735595392 (7) Dyspnea ICD Codes: R06.00 - Dyspnea, unspecified SNOMED: 956786598 (8) Pneumonia ICD Codes: J18.9 - Pneumonia, unspecified organism SNOMED: 545281688 (9) Acute and chronic respiratory failure ICD Codes: J96.20 - Acute and chronic respiratory failure, unspecified whether with hypoxia or hypercapnia SNOMED: 29433790 (10) Diabetes mellitus type 2 in nonobese ICD Codes: E11.9 - Type 2 diabetes mellitus without complications SNOMED: 182453946 (11) CHF (congestive heart failure) ICD Codes: I50.9 - Heart failure, unspecified SNOMED: 46258218 Qualifiers: Qualified Codes: I50.9 - Heart failure, unspecified (12) Hypoxia ICD Codes: R09.02 - Hypoxemia SNOMED: 040982208 (13) Elevated d-dimer ICD Codes: R79.89 - Other specified abnormal findings of blood chemistry SNOMED: 100282933 (14) Schizophrenia ICD Codes: F20.9 - Schizophrenia, unspecified SNOMED: 05319263 (15) Parkinson disease ICD Codes: G20 - Parkinson's disease SNOMED: 61046254 Status: progressing, unchanged Assessment/Plan: lungs sound wet ordered cxr follow up w results afebrile check lytes Subjective ROS Limited/Unobtainable: Yes Allergies: Coded Allergies: LITHIUM (Verified Allergy, Unknown, 02/07/19) Objective Last 24 Hour Vital Signs Date Time Temp Pulse Resp B/P (MAP) Pulse Ox O2 Delivery O2 Flow Rate FiO2 01/08/20 20:00 2.0 01/08/20 20:00 97.7 75 20 119/49 (72) 95 01/08/20 19:58 96 Nasal Cannula 2.0 28 01/08/20 19:58 78 20 99 Nasal Cannula 3.0 32 75 20 96 01/08/20 16:00 2.0 01/08/20 16:00 97.5 72 24 108/32 (57) 98 01/08/20 16:00 75 01/08/20 14:08 73 20 100 Nasal Cannula 3.0 32 66 18 98 01/08/20 12:00 97.5 64 24 113/36 (61) 98 01/08/20 12:00 64 01/08/20 12:00 2.0 01/08/20 09:00 Nasal Cannula 2.0 01/08/20 08:16 93 Nasal Cannula 2.0 28 01/08/20 08:16 72 18 99 Nasal Cannula 2.0 28 77 18 93 01/08/20 08:00 74 01/08/20 08:00 97.7 69 22 115/30 (58) 97 01/08/20 08:00 2.0 01/08/20 04:00 79 01/08/20 04:00 97.7 82 19 95/32 (53) 95 01/08/20 04:00 2.0 01/08/20 01:30 72 20 100 Nasal Cannula 2.0 28 70 20 98 01/08/20 00:00 2.0 01/08/20 00:00 71 01/08/20 00:00 96.8 72 19 112/32 (58) 100 01/07/20 22:30 96.3 72 17 118/34 (62) 96 01/07/20 22:30 Nasal Cannula 2.0 Intake and Output 01/07/20 01/08/20 19:00 07:00 Intake Total 1050 ml 350 ml Balance 1050 ml 350 ml Intake Oral 750 ml IV Total 300 ml 350 ml # Voids 1 1 Laboratory Tests 01/08/20 00:05: POC Whole Blood Glucose 99 01/08/20 05:05: POC Whole Blood Glucose 95 01/08/20 10:55: POC Whole Blood Glucose 105 01/08/20 16:01: POC Whole Blood Glucose 111H Height (Feet): 5 Height (Inches): 7.00 Weight (Pounds): 225 Dani Perera MD Jan 08, 2020 21:43
[2020-01-09] VITALS: BP 126/46
[2020-01-09] MEDS: Ipratropium 0.02% Inh Soln 2.5ml UD HHN SCH ×4 (00:12→19:37)
[2020-01-09 04:00] VITALS: BP 120/44
[2020-01-09] MEDS: Levothyroxine 125mcg tab ORAL SCH (06:01)
--- NOTE | 2020-01-09 06:17 | General Progress Note ---
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 - Other specified diabetes mellitus without complications SNOMED: 572084742 (2) Parkinson disease ICD Codes: G20 - Parkinson's disease SNOMED: 19573555 (3) Schizophrenia ICD Codes: F20.9 - Schizophrenia, unspecified SNOMED: 51969957 (4) Hypertension ICD Codes: I10 - Essential (primary) hypertension SNOMED: 58800854 (5) Respiratory failure ICD Codes: J96.90 - Respiratory failure, unspecified, unspecified whether with hypoxia or hypercapnia SNOMED: 046454627 (6) Hypothyroidism ICD Codes: E03.9 - Hypothyroidism, unspecified SNOMED: 32367253 (7) Diabetes mellitus type 2 in nonobese ICD Codes: E11.9 - Type 2 diabetes mellitus without complications SNOMED: 775054924 Status: progressing, unchanged Assessment/Plan: continue Levothyroxine 125 mcg daily repeat TSH, free T4 no need for glucose monitoring Subjective ROS Limited/Unobtainable: Yes Allergies: Coded Allergies: LITHIUM (Verified Allergy, Unknown, 02/07/19) Subjective events noted glucose values are normal Item Value Date Time Bedside Blood Glucose 98 mg/dl 01/09/20 0000 Bedside Blood Glucose 111 mg/dl 01/08/20 1800 Bedside Blood Glucose 95 mg/dl 01/08/20 0600 Objective Last 24 Hour Vital Signs Date Time Temp Pulse Resp B/P (MAP) Pulse Ox O2 Delivery O2 Flow Rate FiO2 01/09/20 04:00 83 01/09/20 04:00 2.0 01/09/20 04:00 96.6 76 19 120/44 (69) 95 01/09/20 00:12 77 20 100 Nasal Cannula 3.0 32 78 20 95 01/09/20 00:00 96.9 85 19 126/46 (72) 98 01/09/20 00:00 2.0 01/09/20 00:00 80 01/08/20 21:00 Nasal Cannula 2.0 01/08/20 20:00 87 01/08/20 20:00 2.0 01/08/20 20:00 97.7 75 20 119/49 (72) 95 01/08/20 19:58 96 Nasal Cannula 2.0 28 01/08/20 19:58 78 20 99 Nasal Cannula 3.0 32 75 20 96 7/28/20 16:00 2.0 01/08/20 16:00 97.5 72 24 108/32 (57) 98 01/08/20 16:00 75 01/08/20 14:08 73 20 100 Nasal Cannula 3.0 32 66 18 98 01/08/20 12:00 97.5 64 24 113/36 (61) 98 01/08/20 12:00 64 01/08/20 12:00 2.0 01/08/20 09:00 Nasal Cannula 2.0 01/08/20 08:16 93 Nasal Cannula 2.0 28 01/08/20 08:16 72 18 99 Nasal Cannula 2.0 28 77 18 93 01/08/20 08:00 74 01/08/20 08:00 97.7 69 22 115/30 (58) 97 01/08/20 08:00 2.0 Intake and Output 01/08/20 01/09/20 19:00 07:00 Intake Total 236 ml Balance 236 ml Intake Oral 236 ml # Voids 1 2 # Bowel Movements 1 Laboratory Tests 01/08/20 10:55: POC Whole Blood Glucose 105 01/08/20 16:01: POC Whole Blood Glucose 111H Height (Feet): 5 Height (Inches): 7.00 Weight (Pounds): 225 General Appearance: lethargic Neck: normal alignment Cardiovascular: normal rate Respiratory/Chest: lungs clear Abdomen: normal bowel sounds Objective Current Medications Medications (Trade) Dose Ordered Sig/Angie Route PRN Reason Start Time Stop Time Status Last Admin Dose Admin Acetaminophen (Tylenol) 650 mg Q6H PRN ORAL Mild Pain (Pain Scale 1-3) 01/08/20 10:00 01/31/20 13:59 Acetaminophen (Tylenol) 1,000 mg Q6H PRN ORAL Moderate Pain (Pain Scale 4-6) 01/08/20 10:00 01/31/20 13:59 Amantadine HCl (Symmetrel) 100 mg TWICE A DAY ORAL 01/08/20 09:00 01/11/20 08:59 01/08/20 17:13 Aspirin (ASA) 325 mg DAILY ORAL 01/09/20 09:00 02/16/20 08:59 Atorvastatin Calcium (Lipitor) 10 mg BEDTIME ORAL 01/08/20 21:00 03/11/20 20:59 01/08/20 20:46 Clonidine HCl (Catapres Tab) 0.1 mg Q6H PRN ORAL For high BP over 160 systolic 01/08/20 10:00 03/11/20 12:30 Dextrose 1,000 ml @ 50 mls/hr Q20H IV 01/07/20 22:30 02/05/20 11:29 01/08/20 18:33 Dextrose (Dextrose 50%) 25 ml Q30M PRN IV Hypoglycemia 01/07/20 22:45 03/12/20 07:14 Dextrose (Dextrose 50%) 50 ml Q30M PRN IV Hypoglycemia 01/07/20 22:45 03/12/20 07:14 Divalproex Sodium (Depakote Sprinkles) 250 mg Q12HR ORAL 01/08/20 21:00 02/22/20 20:59 01/08/20 20:47 Docusate Sodium (Colace) 100 mg TWICE A DAY ORAL 01/08/20 09:00 02/06/20 08:59 01/08/20 17:13 Ipratropium [place] (Atrovent) 500 mcg Q6HRT HHN 01/08/20 01:00 01/11/20 12:59 01/09/20 00:12 Lactulose (Cephulac) 20 gm BID ORAL 01/08/20 18:00 02/07/20 17:59 01/08/20 17:24 Lansoprazole (Prevacid) 30 mg BIAC ORAL 01/08/20 16:30 02/07/20 16:29 01/09/20 06:01 Levothyroxine Sodium (Synthroid) 125 mcg DAILY@0630 ORAL 01/09/20 06:30 02/07/20 06:29 01/09/20 06:01 Nitroglycerin (Ntg) 0.4 mg Q5MIN X 3 DOSES PRN SL CHEST PAIN 01/07/20 22:30 01/10/20 21:44 Pantoprazole (Protonix) 40 mg EVERY 12 HOURS ORAL 01/08/20 09:00 02/05/20 20:59 01/08/20 20:46 Polyethylene Glycol (Miralax) 17 gm BEDTIME ORAL 01/08/20 21:00 01/18/20 20:59 01/08/20 20:46 Polyethylene Glycol (Miralax) 17 gm DAILYPRN PRN ORAL Constipation 01/08/20 19:00 01/23/20 18:59 Quetiapine Fumarate (SEROqueL) 50 mg Q12HR ORAL 01/08/20 21:00 02/05/20 20:59 01/08/20 20:46 Jabari Adams MD Jan 09, 2020 06:17
--- NOTE | 2020-01-09 07:09 | Hematology/Onc Progress Note ---
Assessment/Plan Assessment/Plan # Lower extremity edema in setting of elevated ddimer --> lower ext duplex ordered to r/o dvt-->neg for dvt --> lovenox sq has been started --> low threshold for v/q or cta r/o pe # Anemia of chronic disease --> hgb 11-->10.-->9->11.9-->10.8->7.8->11->10.8->10.2-->9.6->9.5->10.8-->12--> 10->10.3->11>9.3 --> no e/o hemolysis --> no bleeding reported --> smear reviewed --> no go bleeding --> asa to continue # Leukocytosis r/o infection, likely steriods related --> wbc trend 10==>12-->14->15-->12-->14>6.2 --> steriods off --> abx off # Respiratory failure with copd exacerbation likely --> pulm toilet --> breathing rx --> steroids prn basis --> pulm eval ---> ABX per is on zosyn->now off # 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 ( combination of moderate aortic regurgitation and severe mitral regurgitation) --> diuresis as per cards --> lasix last time # Severe ascending aortic dilatation --> per shannan, Dr Davies # Hypertension # Parkinson disease # Hyperlipidemia # Hypothyroidism # Dementia # Obesity # Schizophrenia --> as per [facility] --> restraints # Dvt ppx lovenox sq/scd's Appreciate work and family life consultant care and alexei Rn Subjective HEENT: Denies: no symptoms, eye pain, blurred vision, tearing, double vision, ear pain, ear discharge, nose pain, nose congestion, throat pain, throat swelling, mouth pain, mouth swelling, other Cardiovascular: Denies: no symptoms, chest pain, edema, irregular heart rate, lightheadedness, palpitations, syncope, other Gastrointestinal/Abdominal: Denies: no symptoms, abdomen distended, abdominal pain, black stools, tarry stools, blood in stool, constipated, diarrhea, difficulty swallowing, nausea, poor appetite, poor fluid intake, rectal bleeding , vomiting, other Neurologic/Psychiatric: Denies: no symptoms, anxiety, depressed, emotional problems, headache, numbness, paresthesia, pre-existing deficit, seizure, tingling, tremors, weakness, other Endocrine: Denies: no symptoms, excessive sweating, flushing, intolerance to cold, intolerance to heat, increased hunger, increased thirst, increased urine, unexplained weight gain, unexplained weight loss, other Allergies: Coded Allergies: LITHIUM (Verified Allergy, Unknown, 02/07/19) Subjective 12/12 labs are reviewed, intubated, with og, somewhat responsive, alexei rn 12/13 labs noted, hgb 7.8, tfs ok to start per gi 12/15 icu, restraints, no acute events, hep panel negative, sedated 12/16 no bleeding, in the icu, on abx, in restarints, sleepy, vent 12/17 is on vent, also is on abx, awake, with ogt 12/18 ng placed, hgb 9.6, no bleeding, no night sweats 12/19 labs reviewed, sedated, on vent, nob leeding, meds reviewed 12/20 remains on vent, audra bleeding, meds reviewed, no night sweats 12/22 hgb 9.5, to get zosyn x 1 more day, no night sweats meds reviewed 12/23 labs noted, no bleeding, with fm, no bleeding or night sweats 12/24 no bleeding, labs noted, no night sweats hgb 10, no hemolysis 12/25 remains fatigued, fm, labs are still pending from am 12/26 restraints, v mask, cxr reviewed 12/27 labs reviewed, no bleeding, hgb 10.8, no hemolysis on FM 12/29 remains disoriented on bipap and fm as needed, hgb better 12/30 wbc 15k, no bleeding, dw rn, no night sweats off abx 12/31 wbc remains elevated, arousable, no bleeding, on fm 01/01 meds noted, labs reviewed, no bleeding on exam 01/02 refusing labs this am, no bleeding, meds noted, no hemolysis 01/03 no bleeding, meds noted, no night sweats, cbc pend 01/04 labs noted, no bleeding, cbc has been ordered for am, seen by gi, renal 01/05 asleep, labs noted, meds revoewed.no bleeding 01/06 pending placement, no night sweats, meds have been reviewed 01/07 labs are reviewed, no bleeding, hgb 9.3, no hemolysis seen 01/08 no bleeding or chills, labs are noted, no night sweats Objective Objective Current Medications Medications (Trade) Dose Ordered Sig/Angie Route PRN Reason Start Time Stop Time Status Last Admin Dose Admin Acetaminophen (Tylenol) 650 mg Q6H PRN ORAL Mild Pain (Pain Scale 1-3) 01/08/20 10:00 01/31/20 13:59 Acetaminophen (Tylenol) 1,000 mg Q6H PRN ORAL Moderate Pain (Pain Scale 4-6) 01/08/20 10:00 01/31/20 13:59 Amantadine HCl (Symmetrel) 100 mg TWICE A DAY ORAL 01/08/20 09:00 01/11/20 08:59 01/08/20 17:13 Aspirin (ASA) 325 mg DAILY ORAL 01/09/20 09:00 02/16/20 08:59 Atorvastatin Calcium (Lipitor) 10 mg BEDTIME ORAL 01/08/20 21:00 03/11/20 20:59 01/08/20 20:46 Clonidine HCl (Catapres Tab) 0.1 mg Q6H PRN ORAL For high BP over 160 systolic 01/08/20 10:00 03/11/20 12:30 Dextrose 1,000 ml @ 50 mls/hr Q20H IV 01/07/20 22:30 02/05/20 11:29 01/08/20 18:33 Dextrose (Dextrose 50%) 25 ml Q30M PRN IV Hypoglycemia 01/07/20 22:45 03/12/20 07:14 Dextrose (Dextrose 50%) 50 ml Q30M PRN IV Hypoglycemia 01/07/20 22:45 03/12/20 07:14 Divalproex Sodium (Depakote Sprinkles) 250 mg Q12HR ORAL 01/08/20 21:00 02/22/20 20:59 01/08/20 20:47 Docusate Sodium (Colace) 100 mg TWICE A DAY ORAL 01/08/20 09:00 02/06/20 08:59 01/08/20 17:13 Ipratropium [place] (Atrovent) 500 mcg Q6HRT HHN 01/08/20 01:00 01/11/20 12:59 01/09/20 06:44 Lactulose (Cephulac) 20 gm BID ORAL 01/08/20 18:00 02/07/20 17:59 01/08/20 17:24 Lansoprazole (Prevacid) 30 mg BIAC ORAL 01/08/20 16:30 02/07/20 16:29 01/09/20 06:01 Levothyroxine Sodium (Synthroid) 125 mcg DAILY@0630 ORAL 01/09/20 06:30 02/07/20 06:29 01/09/20 06:01 Nitroglycerin (Ntg) 0.4 mg Q5MIN X 3 DOSES PRN SL CHEST PAIN 01/07/20 22:30 01/10/20 21:44 Pantoprazole (Protonix) 40 mg EVERY 12 HOURS ORAL 01/08/20 09:00 02/05/20 20:59 01/08/20 20:46 Polyethylene Glycol (Miralax) 17 gm BEDTIME ORAL 01/08/20 21:00 01/18/20 20:59 01/08/20 20:46 Polyethylene Glycol (Miralax) 17 gm DAILYPRN PRN ORAL Constipation 01/08/20 19:00 01/23/20 18:59 Quetiapine Fumarate (SEROqueL) 50 mg Q12HR ORAL 01/08/20 21:00 02/05/20 20:59 01/08/20 20:46 Last 24 Hour Vital Signs Date Time Temp Pulse Resp B/P (MAP) Pulse Ox O2 Delivery O2 Flow Rate FiO2 01/09/20 04:00 83 01/09/20 04:00 2.0 01/09/20 04:00 96.6 76 19 120/44 (69) 95 01/09/20 00:12 77 20 100 Nasal Cannula 3.0 32 78 20 95 01/09/20 00:00 96.9 85 19 126/46 (72) 98 01/09/20 00:00 2.0 01/09/20 00:00 80 01/08/20 21:00 Nasal Cannula 2.0 01/08/20 20:00 87 01/08/20 20:00 2.0 01/08/20 20:00 97.7 75 20 119/49 (72) 95 01/08/20 19:58 96 Nasal Cannula 2.0 28 01/08/20 19:58 78 20 99 Nasal Cannula 3.0 32 75 20 96 01/08/20 16:00 2.0 01/08/20 16:00 97.5 72 24 108/32 (57) 98 01/08/20 16:00 75 01/08/20 14:08 73 20 100 Nasal Cannula 3.0 32 66 18 98 01/08/20 12:00 97.5 64 24 113/36 (61) 98 01/08/20 12:00 64 01/08/20 12:00 2.0 01/08/20 09:00 Nasal Cannula 2.0 01/08/20 08:16 93 Nasal Cannula 2.0 28 01/08/20 08:16 72 18 99 Nasal Cannula 2.0 28 77 18 93 01/08/20 08:00 74 01/08/20 08:00 97.7 69 22 115/30 (58) 97 01/08/20 08:00 2.0 01/08/20 04:00 79 01/08/20 04:00 97.7 82 19 95/32 (53) 95 01/08/20 04:00 2.0 01/08/20 01:30 72 20 100 Nasal Cannula 2.0 28 70 20 98 01/08/20 00:00 2.0 01/08/20 00:00 71 01/08/20 00:00 96.8 72 19 112/32 (58) 100 01/07/20 22:30 96.3 72 17 118/34 (62) 96 01/07/20 22:30 Nasal Cannula 2.0 01/07/20 20:00 97.5 71 20 107/43 (64) 100 01/07/20 20:00 Venturi Mask 14.0 01/07/20 19:06 99 Nasal Cannula 3.0 32 01/07/20 19:05 74 20 100 Nasal Cannula 3.0 32 73 20 99 01/07/20 19:03 71 01/07/20 18:00 3.0 01/07/20 16:00 97.7 70 18 109/40 (63) 100 01/07/20 16:00 4.0 31 01/07/20 16:00 64 01/07/20 16:00 Venturi Mask 14.0 01/07/20 13:06 72 20 100 Venturi Mask 4.0 31 63 22 97 01/07/20 12:00 4.0 31 01/07/20 12:00 97.5 69 18 107/40 (62) 95 01/07/20 12:00 Venturi Mask 14.0 01/07/20 12:00 69 01/07/20 09:00 4.0 31 01/07/20 08:00 97.7 72 18 126/45 (72) 99 01/07/20 08:00 70 01/07/20 08:00 Venturi Mask 14.0 01/07/20 07:43 71 20 99 Venturi Mask 4.0 31 68 20 96 01/07/20 07:43 96 Venturi Mask 4.0 30 Intake and Output 01/08/20 01/09/20 19:00 07:00 Intake Total 236 ml Balance 236 ml Intake Oral 236 ml # Voids 1 2 # Bowel Movements 1 Labs Test 01/06/20 23:20 01/07/20 03:49 01/07/20 05:09 01/07/20 11:37 White Blood Count 6.2 K/UL (4.8-10.8) Red Blood Count 2.87 M/UL (4.20-5.40) Hemoglobin 9.3 G/DL (12.0-16.0) Hematocrit 28.5 % (37.0-47.0) Mean Corpuscular Volume 99 FL (80-99) Mean Corpuscular Hemoglobin 32.5 PG (27.0-31.0) Mean Corpuscular Hemoglobin Concent 32.8 G/DL (32.0-36.0) Red Cell Distribution Width 12.9 % (11.6-14.8) Platelet Count 159 K/UL (150-450) Mean Platelet Volume 5.8 FL (6.5-10.1) Neutrophils (%) (Auto) 71.4 % (45.0-75.0) Lymphocytes (%) (Auto) 20.3 % (20.0-45.0) Monocytes (%) (Auto) 6.2 % (1.0-10.0) Eosinophils (%) (Auto) 1.7 % (0.0-3.0) Basophils (%) (Auto) 0.4 % (0.0-2.0) Sodium Level 148 MMOL/L (136-145) Potassium Level 3.7 MMOL/L (3.5-5.1) Chloride Level 108 MMOL/L (98-107) Carbon Dioxide Level 40 MMOL/L (21-32) Anion Gap -1 mmol/L (5-15) Blood Urea Nitrogen 31 mg/dL (7-18) Creatinine 0.8 MG/DL (0.55-1.30) Estimat Glomerular Filtration Rate > 60 mL/min (>60) Glucose Level 110 MG/DL (74-106) Calcium Level 8.6 MG/DL (8.5-10.1) Iron Level 84 ug/dL (50-175) Total Iron Binding Capacity 190 ug/dL (250-450) Percent Iron Saturation 44 % (15-50) Unsaturated Iron Binding 106 ug/dL (112-346) POC Whole Blood Glucose 104 MG/DL (74-106) Test 01/07/20 16:49 01/08/20 00:05 01/08/20 05:05 01/08/20 10:55 POC Whole Blood Glucose 95 MG/DL (74-106) 99 MG/DL (74-106) 95 MG/DL (74-106) 105 MG/DL (74-106) Test 01/08/20 16:01 POC Whole Blood Glucose 111 MG/DL (74-106) Height (Feet): 5 Height (Inches): 7.00 Weight (Pounds): 221 Objective Vitals: reviewed General: NAD HEENT: nc, at ++ngt, facemask+ Neck: supple Chest: decreased breath sounds bilaterally Cardiovascular: RRR, no s3, s4 Abdomen: soft, nontender, nd Extremities: 1-2 + edema, scd's Neuro: nonverbal : iman+ Frank Escobar MD Jan 09, 2020 07:09
--- NOTE | 2020-01-09 07:20 | NUR ---
NURSE NOTES: Received report from Kiera/RN. Patient is awake, lying semi-fowlers in bed, resting comfortably. On 2L NC. IV on Left hand 24G running D5W @ 50cc per hour, patient on awake overnight monitor. Call light within reach, encouraged to use call light when needed. Bed in low position and locked. Will continue plan of care.
--- NOTE | 2020-01-09 07:25 | NUR ---
HAND-OFF: Report given to DARREL Christensen. Plan of care endorsed.
[2020-01-09 08:00] VITALS: BP 136/38
[2020-01-09] MEDS: Lactulose 20gm/30ml UDC ORAL SCH ×3 (08:35→17:36)
[2020-01-09] MEDS: Amantadine 100mg cap ORAL SCH ×2 (08:36→17:36)
[2020-01-09] MEDS: Docusate 100mg cap ORAL SCH ×3 (08:36→17:36)
[2020-01-09] MEDS: Depakote 125mg Sprinkles ORAL SCH ×2 (08:37→20:37)
--- NOTE | 2020-01-09 09:18 | General Progress Note ---
Assessment/Plan Status: progressing, unchanged Assessment/Plan: Assessment - Resp failure - r/o COVID -- x 2 negative - COPD - HTN - Anemia - Abnormal LFT -anemia Recommendations - extubated now - Elevate HOB - abx - follow labs - f/u hepatitis serologies>>> neg -repeat labs -on oral diet now -drop in H&H without obvious bleed -repeat cbc in am -ppi -bowel regimen Subjective Allergies: Coded Allergies: LITHIUM (Verified Allergy, Unknown, 02/07/19) Objective Last 24 Hour Vital Signs Date Time Temp Pulse Resp B/P (MAP) Pulse Ox O2 Delivery O2 Flow Rate FiO2 01/09/20 08:00 97.7 75 22 136/38 (70) 95 01/09/20 08:00 80 01/09/20 08:00 2.0 01/09/20 06:54 71 20 98 Nasal Cannula 3.0 32 69 20 93 01/09/20 06:54 93 Nasal Cannula 3.0 32 01/09/20 04:00 83 01/09/20 04:00 2.0 01/09/20 04:00 96.6 76 19 120/44 (69) 95 01/09/20 00:12 77 20 100 Nasal Cannula 3.0 32 78 20 95 01/09/20 00:00 96.9 85 19 126/46 (72) 98 01/09/20 00:00 2.0 01/09/20 00:00 80 01/08/20 21:00 Nasal Cannula 2.0 01/08/20 20:00 87 01/08/20 20:00 2.0 01/08/20 20:00 97.7 75 20 119/49 (72) 95 01/08/20 19:58 96 Nasal Cannula 2.0 28 01/08/20 19:58 78 20 99 Nasal Cannula 3.0 32 75 20 96 01/08/20 16:00 2.0 01/08/20 16:00 97.5 72 24 108/32 (57) 98 01/08/20 16:00 75 01/08/20 14:08 73 20 100 Nasal Cannula 3.0 32 66 18 98 01/08/20 12:00 97.5 64 24 113/36 (61) 98 01/08/20 12:00 64 01/08/20 12:00 2.0 Intake and Output 01/08/20 01/09/20 19:00 07:00 Intake Total 236 ml Balance 236 ml Intake Oral 236 ml # Voids 1 2 # Bowel Movements 1 Laboratory Tests 01/08/20 10:55: POC Whole Blood Glucose 105 01/08/20 16:01: POC Whole Blood Glucose 111H 01/09/20 07:50: Thyroid Stimulating Hormone (TSH) 8.186H, Free Thyroxine 1.34 Height (Feet): 5 Height (Inches): 7.00 Weight (Pounds): 221 General Appearance: lethargic EENT: normal ENT inspection Neck: supple Cardiovascular: normal rate Respiratory/Chest: decreased breath sounds Abdomen: hypoactive bowel sounds Extremities: non-tender Kirk Vidal MD Jan 09, 2020 09:18
--- NOTE | 2020-01-09 09:24 | Infectious Diseases Prog Note ---
Assessment/Plan Assessment/Plan IMPRESSION: COPD exacerbation, Pneumonia, COID19 X 2: negative Acute respiratory failure with hypercapnia Dementia, Parkinson, Mitral valve regurgitation, Hypertension, Hypothyroidism. MRSA carrier Leukocytosis resolved DM RECOMMENDATION: Observe off antibiotic Waiting for placement Subjective ROS Limited/Unobtainable: Yes Constitutional: Denies: fever Allergies: Coded Allergies: LITHIUM (Verified Allergy, Unknown, 02/07/19) Objective Last 24 Hour Vital Signs Date Time Temp Pulse Resp B/P (MAP) Pulse Ox O2 Delivery O2 Flow Rate FiO2 01/09/20 08:00 97.7 75 22 136/38 (70) 95 01/09/20 08:00 80 01/09/20 08:00 2.0 01/09/20 06:54 71 20 98 Nasal Cannula 3.0 32 69 20 93 01/09/20 06:54 93 Nasal Cannula 3.0 32 01/09/20 04:00 83 01/09/20 04:00 2.0 01/09/20 04:00 96.6 76 19 120/44 (69) 95 01/09/20 00:12 77 20 100 Nasal Cannula 3.0 32 78 20 95 01/09/20 00:00 96.9 85 19 126/46 (72) 98 01/09/20 00:00 2.0 01/09/20 00:00 80 01/08/20 21:00 Nasal Cannula 2.0 01/08/20 20:00 87 01/08/20 20:00 2.0 01/08/20 20:00 97.7 75 20 119/49 (72) 95 01/08/20 19:58 96 Nasal Cannula 2.0 28 01/08/20 19:58 78 20 99 Nasal Cannula 3.0 32 75 20 96 01/08/20 16:00 2.0 01/08/20 16:00 97.5 72 24 108/32 (57) 98 01/08/20 16:00 75 01/08/20 14:08 73 20 100 Nasal Cannula 3.0 32 66 18 98 01/08/20 12:00 97.5 64 24 113/36 (61) 98 01/08/20 12:00 64 01/08/20 12:00 2.0 Height (Feet): 5 Height (Inches): 7.00 Weight (Pounds): 221 HEENT: mucous membranes moist Respiratory/Chest: rhonchi - bilaterally Cardiovascular: normal rate Abdomen: soft, non tender Extremities: no edema Neurologic/Psychiatric: alert Laboratory Tests Test 01/08/20 10:55 01/08/20 16:01 01/09/20 07:50 POC Whole Blood Glucose 105 MG/DL (74-106) 111 MG/DL (74-106) H Thyroid Stimulating Hormone (TSH) 8.186 uiU/mL (0.358-3.740) Free Thyroxine 1.34 NG/DL (0.76-1.46) Current Medications Medications (Trade) Dose Ordered Sig/Angie Route PRN Reason Start Time Stop Time Status Last Admin Dose Admin Acetaminophen (Tylenol) 650 mg Q6H PRN ORAL Mild Pain (Pain Scale 1-3) 01/08/20 10:00 01/31/20 13:59 Acetaminophen (Tylenol) 1,000 mg Q6H PRN ORAL Moderate Pain (Pain Scale 4-6) 01/08/20 10:00 01/31/20 13:59 Amantadine HCl (Symmetrel) 100 mg TWICE A DAY ORAL 01/08/20 09:00 01/11/20 08:59 01/09/20 08:36 Aspirin (ASA) 325 mg DAILY ORAL 01/09/20 09:00 02/16/20 08:59 01/09/20 08:36 Atorvastatin Calcium (Lipitor) 10 mg BEDTIME ORAL 01/08/20 21:00 03/11/20 20:59 01/08/20 20:46 Clonidine HCl (Catapres Tab) 0.1 mg Q6H PRN ORAL For high BP over 160 systolic 01/08/20 10:00 03/11/20 12:30 Dextrose 1,000 ml @ 50 mls/hr Q20H IV 01/07/20 22:30 02/05/20 11:29 01/08/20 18:33 Dextrose (Dextrose 50%) 25 ml Q30M PRN IV Hypoglycemia 01/07/20 22:45 03/12/20 07:14 Dextrose (Dextrose 50%) 50 ml Q30M PRN IV Hypoglycemia 01/07/20 22:45 03/12/20 07:14 Divalproex Sodium (Depakote Sprinkles) 250 mg Q12HR ORAL 01/08/20 21:00 02/22/20 20:59 01/09/20 08:37 Docusate Sodium (Colace) 100 mg TWICE A DAY ORAL 01/08/20 09:00 02/06/20 08:59 01/08/20 17:13 Ipratropium [place] (Atrovent) 500 mcg Q6HRT HHN 01/08/20 01:00 01/11/20 12:59 01/09/20 06:44 Lactulose (Cephulac) 20 gm BID ORAL 01/08/20 18:00 02/07/20 17:59 01/08/20 17:24 Lansoprazole (Prevacid) 30 mg BIAC ORAL 01/08/20 16:30 02/07/20 16:29 01/09/20 06:01 Levothyroxine Sodium (Synthroid) 125 mcg DAILY@0630 ORAL 01/09/20 06:30 02/07/20 06:29 01/09/20 06:01 Nitroglycerin (Ntg) 0.4 mg Q5MIN X 3 DOSES PRN SL CHEST PAIN 01/07/20 22:30 01/10/20 21:44 Pantoprazole (Protonix) 40 mg EVERY 12 HOURS ORAL 01/08/20 09:00 02/05/20 20:59 01/08/20 20:46 Polyethylene Glycol (Miralax) 17 gm BEDTIME ORAL 01/08/20 21:00 01/18/20 20:59 01/08/20 20:46 Polyethylene Glycol (Miralax) 17 gm DAILYPRN PRN ORAL Constipation 01/08/20 19:00 01/23/20 18:59 Quetiapine Fumarate (SEROqueL) 50 mg Q12HR ORAL 01/08/20 21:00 02/05/20 20:59 01/09/20 08:37 Lei Chan MD Jan 09, 2020 09:24
--- NOTE | 2020-01-09 11:59 | Pulmonology Progress Note ---
Subjective ROS Limited/Unobtainable: Yes Interval Events: None new Constitutional: Denies: fever HEENT: Repors: no symptoms Respiratory: Reports: no symptoms Cardiovascular: Reports: no symptoms Gastrointestinal/Abdominal: Reports: diarrhea Genitourinary: Reports: no symptoms Allergies: Coded Allergies: LITHIUM (Verified Allergy, Unknown, 02/07/19) All Systems: reviewed and negative except above Objective Last 24 Hour Vital Signs Date Time Temp Pulse Resp B/P (MAP) Pulse Ox O2 Delivery O2 Flow Rate FiO2 01/09/20 08:00 97.7 75 22 136/38 (70) 95 01/09/20 08:00 80 01/09/20 08:00 2.0 01/09/20 06:54 71 20 98 Nasal Cannula 3.0 32 69 20 93 01/09/20 06:54 93 Nasal Cannula 3.0 32 01/09/20 04:00 83 01/09/20 04:00 2.0 01/09/20 04:00 96.6 76 19 120/44 (69) 95 01/09/20 00:12 77 20 100 Nasal Cannula 3.0 32 78 20 95 01/09/20 00:00 96.9 85 19 126/46 (72) 98 01/09/20 00:00 2.0 01/09/20 00:00 80 01/08/20 21:00 Nasal Cannula 2.0 01/08/20 20:00 87 01/08/20 20:00 2.0 01/08/20 20:00 97.7 75 20 119/49 (72) 95 01/08/20 19:58 96 Nasal Cannula 2.0 28 01/08/20 19:58 78 20 99 Nasal Cannula 3.0 32 75 20 96 01/08/20 16:00 2.0 01/08/20 16:00 97.5 72 24 108/32 (57) 98 01/08/20 16:00 75 01/08/20 14:08 73 20 100 Nasal Cannula 3.0 32 66 18 98 01/08/20 12:00 97.5 64 24 113/36 (61) 98 01/08/20 12:00 64 01/08/20 12:00 2.0 Intake and Output 01/08/20 01/09/20 19:00 07:00 Intake Total 236 ml Balance 236 ml Intake Oral 236 ml # Voids 1 2 # Bowel Movements 1 General Appearance: no acute distress Respiratory: chest wall non-tender, lungs clear Cardiovascular: normal peripheral pulses, normal rate Abdomen: normal bowel sounds Laboratory Tests 01/08/20 16:01: POC Whole Blood Glucose 111H 01/09/20 07:50: Thyroid Stimulating Hormone (TSH) 8.186H, Free Thyroxine 1.34 Current Medications Medications (Trade) Dose Ordered Sig/Angie Route PRN Reason Start Time Stop Time Status Last Admin Dose Admin Acetaminophen (Tylenol) 650 mg Q6H PRN ORAL Mild Pain (Pain Scale 1-3) 01/08/20 10:00 01/31/20 13:59 Acetaminophen (Tylenol) 1,000 mg Q6H PRN ORAL Moderate Pain (Pain Scale 4-6) 01/08/20 10:00 01/31/20 13:59 Amantadine HCl (Symmetrel) 100 mg TWICE A DAY ORAL 01/08/20 09:00 01/11/20 08:59 01/09/20 08:36 Aspirin (ASA) 325 mg DAILY ORAL 01/09/20 09:00 02/16/20 08:59 01/09/20 08:36 Atorvastatin Calcium (Lipitor) 10 mg BEDTIME ORAL 01/08/20 21:00 03/11/20 20:59 01/08/20 20:46 Clonidine HCl (Catapres Tab) 0.1 mg Q6H PRN ORAL For high BP over 160 systolic 01/08/20 10:00 03/11/20 12:30 Dextrose 1,000 ml @ 50 mls/hr Q20H IV 01/07/20 22:30 02/05/20 11:29 01/08/20 18:33 Dextrose (Dextrose 50%) 25 ml Q30M PRN IV Hypoglycemia 01/07/20 22:45 03/12/20 07:14 Dextrose (Dextrose 50%) 50 ml Q30M PRN IV Hypoglycemia 01/07/20 22:45 03/12/20 07:14 Divalproex Sodium (Depakote Sprinkles) 250 mg Q12HR ORAL 01/08/20 21:00 02/22/20 20:59 01/09/20 08:37 Docusate Sodium (Colace) 100 mg TWICE A DAY ORAL 01/08/20 09:00 02/06/20 08:59 01/08/20 17:13 Ipratropium [place] (Atrovent) 500 mcg Q6HRT HHN 01/08/20 01:00 01/11/20 12:59 01/09/20 06:44 Lactulose (Cephulac) 20 gm BID ORAL 01/08/20 18:00 02/07/20 17:59 01/08/20 17:24 Lansoprazole (Prevacid) 30 mg BIAC ORAL 01/08/20 16:30 02/07/20 16:29 01/09/20 06:01 Levothyroxine Sodium (Synthroid) 125 mcg DAILY@0630 ORAL 01/09/20 06:30 02/07/20 06:29 01/09/20 06:01 Nitroglycerin (Ntg) 0.4 mg Q5MIN X 3 DOSES PRN SL CHEST PAIN 01/07/20 22:30 01/10/20 21:44 Pantoprazole (Protonix) 40 mg EVERY 12 HOURS ORAL 01/08/20 09:00 02/05/20 20:59 01/08/20 20:46 Polyethylene Glycol (Miralax) 17 gm BEDTIME ORAL 01/08/20 21:00 01/18/20 20:59 01/08/20 20:46 Polyethylene Glycol (Miralax) 17 gm DAILYPRN PRN ORAL Constipation 01/08/20 19:00 01/23/20 18:59 Quetiapine Fumarate (SEROqueL) 50 mg Q12HR ORAL 01/08/20 21:00 02/05/20 20:59 01/09/20 08:37 Assessment/Plan Assessment/Plan IMPRESSION: 1. Respiratory failure. Improved; now on nasal o2 2. Has healthcare-associated pneumonia; is negative for COVID-19. 3. Psych disorder. 4. Obesity. 5. Hypertension. 6. Hypernatremia DISCUSSION: Has negative COVID-19 swab. Off steroids Off Lasix and Diamox DC to snf [facility] Fan Omar Syed MD Jan 09, 2020 11:59
[2020-01-09 12:00] VITALS: BP 107/33
--- NOTE | 2020-01-09 14:48 | Nephrology Progress Note ---
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 Respiratory distress most likely secondary to pulmonary edema and or COPD exacerbation. Hyponatremia. Obese. Hypothyroidism. Elevated d-dimer. Elevated liver enzymes Plan January 08: No can panel today. Renal parameters stable. Will check labs tomorrow. Continue per consultants. January 07: No labs drawn today. Stable from renal standpoint of view January 06: Renal parameters stable. Subtherapeutic Depakote level. Continue per consultants. January 05: Stable from renal standpoint of view. Check iron panel ferritin and Depakote level today. Start 50 cc an hour D5W for rising serum sodium. January 04: No can panel done today. Renal parameters overall stable. Will check labs tomorrow. Discharge planning in process. Discussed with RN. January 03: Can panel reviewed. Renal parameters stable. Continue per consultants. Discharge planning in process. January 02: No labs done today. Stable from renal standpoint of view. January 01: Lab reviewed. Renal parameters stable. December 31: Lab reviewed. No new labs today. Renal parameters stable. Continue her consultants. December 30: Lab reviewed. Renal parameters stable. On 1 L oxygen with cannula. Patient agitated periodically. Due transfer to [facility]. December 29: Lab reviewed. Renal parameters stable. Now on Venturi mask. CO2 lower to 35. December 28: Lab reviewed: CO2 remains high: On BiPAP. Continue per pulmonary. Stable from renal standpoint of view. December 27: Lab reviewed. Continues to retain CO2. On Venturi mask. Continue per pulmonary. Stable from renal standpoint of view. December 26: Lab reviewed. ABG reviewed. Patient retaining CO2. Remains on BiPAP. Continue per pulmonary. Stable from renal standpoint of view. December 25: Lab reviewed. TSH remains high. On nonrebreathing mask. Renal parameters stable. Synthroid dose increased. IV fluids stopped. December 24: Lab reviewed. Still on BiPAP. Renal parameters stable. December 23: Lab reviewed. Remains on BiPAP. Agitated at times. ABG ordered. Serum sodium improved. December 22: Lab reviewed. On BiPAP. Stable from renal standpoint of view. Will follow serum sodium. December 21: Labs reviewed. On nonrebreather mask. D5W 50 cc an hour started for hypernatremia. Magnesium supplement given. Continue per consultants. December 20: Patient on weaning trial. No labs done today. Discussed with RN. Continue per consultants. December 19: Patient remains intubated. Renal parameters stable. Discussed with RN. Continue per consultants. December 18: Patient self extubated yesterday however was reintubated. Remains stable from renal standpoint of view. Discussed with RN. Discussed with Dr. Myers. December 17: Remains intubated. Remains full code. Failed weaning. Stable from renal standpoint of view. Continue per consultants. Discussed with DARREL [place]. December 16: Remains intubated. Full code. Weaning in process. Stable from renal standpoint of view. December 15: Remains vented. Electrolytes improved. Continue per consultants. December 14: Patient remains in ICU intubated on ventilator. Potassium low. Phosphorus low. Supplements given. Renal parameters are stable. Continue per consultants. December 13: Patient remains in ICU intubated on ventilator. Discussed with RN. Labs reviewed. Creatinine 1.3. Potassium supplements given. Mag sulfate IV 2 g given. Continue per consultants. December 12: Patient in ICU. Intubated on ventilator. Discussed with RN. Labs reviewed. Potassium supplement given. Continue per consultants. Arterial blood gas indicative of CO2 retention. Patient on the way to ICU for intubation. Continue per pulmonary management. Pulmonary support, Check 2D echocardiogram. Previous 2D echo had a 50% ejection fraction. Keep blood sugar and blood pressure in check. Thyroid panel. Monitor electrolytes and renal parameters. Afterload reduction. Diuretics Monitor serum calcium, supplements via NG tube. Per orders. Subjective ROS Limited/Unobtainable: No Constitutional: Reports: malaise, weakness Objective Objective Last 24 Hour Vital Signs Date Time Temp Pulse Resp B/P (MAP) Pulse Ox O2 Delivery O2 Flow Rate FiO2 01/09/20 13:23 76 20 99 Nasal Cannula 3.0 32 76 20 94 01/09/20 12:00 2.0 01/09/20 12:00 97.5 68 26 107/33 (57) 95 01/09/20 12:00 73 01/09/20 08:00 97.7 75 22 136/38 (70) 95 01/09/20 08:00 80 01/09/20 08:00 2.0 01/09/20 06:54 71 20 98 Nasal Cannula 3.0 32 69 20 93 01/09/20 06:54 93 Nasal Cannula 3.0 32 01/09/20 04:00 83 01/09/20 04:00 2.0 01/09/20 04:00 96.6 76 19 120/44 (69) 95 01/09/20 00:12 77 20 100 Nasal Cannula 3.0 32 78 20 95 01/09/20 00:00 96.9 85 19 126/46 (72) 98 01/09/20 00:00 2.0 01/09/20 00:00 80 01/08/20 21:00 Nasal Cannula 2.0 01/08/20 20:00 87 01/08/20 20:00 2.0 01/08/20 20:00 97.7 75 20 119/49 (72) 95 01/08/20 19:58 96 Nasal Cannula 2.0 28 01/08/20 19:58 78 20 99 Nasal Cannula 3.0 32 75 20 96 01/08/20 16:00 2.0 01/08/20 16:00 97.5 72 24 108/32 (57) 98 01/08/20 16:00 75 Intake and Output 01/08/20 01/09/20 19:00 07:00 Intake Total 236 ml Balance 236 ml Intake Oral 236 ml # Voids 1 2 # Bowel Movements 1 Laboratory Tests 01/08/20 16:01: POC Whole Blood Glucose 111H 01/09/20 07:50: Thyroid Stimulating Hormone (TSH) 8.186H, Free Thyroxine 1.34 01/09/20 12:11: POC Whole Blood Glucose 101 Height (Feet): 5 Height (Inches): 7.00 Weight (Pounds): 221 Cardiovascular: normal rate Respiratory/Chest: decreased breath sounds Abdomen: distended Bryan Ochoa MD Jan 09, 2020 14:48
--- NOTE | 2020-01-09 15:22 | NUR ---
CASE MANAGEMENT: REVIEW SI: COPD EXACERBATION . PNA T 97.5 HR 76 RR 26 BP 107/33 SAT 93% NC/3L CXR -- BASILAR ATELECTASIS IS: SYNTHROID GT Q12HR PROTONIX IV Q12HR SEROQUEL PO Q12HR LACTULOSE PO BID TELEMETRY UNIT STATUS DCP: PATIENT [facility]PTED TO [facility]
--- NOTE | 2020-01-09 15:33 | NUR ---
CASE MANAGEMENT: DCP PATIENT ACCEPTED TO [facility] [phone]; PENDING AN AVAILABLE BED PUBLIC GUARDIAN MILLIE TIM MADE AWARE [phone]
[2020-01-09 16:00] VITALS: BP 112/36
--- NOTE | 2020-01-09 18:24 | Cardiac Electrophysiology PN ---
Assessment/Plan Assessment/Plan 1. S/P Respiratory failure with BNP of more than 19,000. Normal EF. On 2 liter NC 2. Bradycardia requiring atropine due to respiratory failure . No further 3. Bilateral UE edema. Venous Duplex was negative on 12/12/19. 4. History of Parkinson disease. 5. Hyperlipidemia. DW brand advocate pending Subjective Subjective Alert in NAD on 2 liter nasal cannula. Placement pending Objective Last 24 Hour Vital Signs Date Time Temp Pulse Resp B/P (MAP) Pulse Ox O2 Delivery O2 Flow Rate FiO2 01/09/20 16:00 77 01/09/20 16:00 2.0 01/09/20 16:00 97.7 72 24 112/36 (61) 97 01/09/20 13:23 76 20 99 Nasal Cannula 3.0 32 76 20 94 01/09/20 12:00 2.0 01/09/20 12:00 97.5 68 26 107/33 (57) 95 01/09/20 12:00 73 01/09/20 08:00 97.7 75 22 136/38 (70) 95 01/09/20 08:00 80 01/09/20 08:00 2.0 01/09/20 06:54 71 20 98 Nasal Cannula 3.0 32 69 20 93 01/09/20 06:54 93 Nasal Cannula 3.0 32 01/09/20 04:00 83 01/09/20 04:00 2.0 01/09/20 04:00 96.6 76 19 120/44 (69) 95 01/09/20 00:12 77 20 100 Nasal Cannula 3.0 32 78 20 95 01/09/20 00:00 96.9 85 19 126/46 (72) 98 01/09/20 00:00 2.0 01/09/20 00:00 80 01/08/20 21:00 Nasal Cannula 2.0 01/08/20 20:00 87 01/08/20 20:00 2.0 01/08/20 20:00 97.7 75 20 119/49 (72) 95 01/08/20 19:58 96 Nasal Cannula 2.0 28 01/08/20 19:58 78 20 99 Nasal Cannula 3.0 32 75 20 96 Intake and Output 01/08/20 01/09/20 19:00 07:00 Intake Total 236 ml Balance 236 ml Intake Oral 236 ml # Voids 1 2 # Bowel Movements 1 Laboratory Tests Test 01/09/20 07:50 01/09/20 12:11 01/09/20 17:39 Thyroid Stimulating Hormone (TSH) 8.186 uiU/mL (0.358-3.740) Free Thyroxine 1.34 NG/DL (0.76-1.46) POC Whole Blood Glucose 101 MG/DL (74-106) 138 MG/DL (74-106) H Objective HEAD AND NECK: No JVD. LUNGS: Coarse rhonchi. CARDIOVASCULAR: Regular S1 and S2 No G/R/M ABDOMEN: Soft. EXTREMITIES: Bilateral arm edema. Cameron Davies MD Jan 09, 2020 18:24
--- NOTE | 2020-01-09 19:05 | NUR ---
HAND-OFF: Report given to Dimelizabet/RN. Patient in stable condition. Endorsed plan of care.
--- NOTE | 2020-01-09 19:30 | NUR ---
Nurses Notes: Received report from DARREL Christensen. Pt in bed, awake, able to make needs known. A/Ox2. On O2 via NC at 2L/min with no resp distress noted. Continue on cardiac monitoring. IV 24G hand infusing D5W 50cc/hr with no s/s infiltration noted. Bed in low position, locked, bed alarm on, side rails up x2. Call light with in reach.
[2020-01-09 20:00] VITALS: BP 121/38
[2020-01-09] MEDS: Miralax 17gm pkt ORAL SCH (20:38)
--- NOTE | 2020-01-09 21:50 | General Progress Note ---
Assessment/Plan Problem List: (1) Dyspnea ICD Codes: R06.00 - Dyspnea, unspecified SNOMED: 990611481 (2) Hypothyroidism ICD Codes: E03.9 - Hypothyroidism, unspecified SNOMED: 46162020 (3) Obese ICD Codes: E66.9 - Obesity, unspecified SNOMED: 721359943, 424541558 (4) Psychosis ICD Codes: F29 - Unspecified psychosis not due to a substance or known physiological condition SNOMED: 89448392 (5) Respiratory failure ICD Codes: J96.90 - Respiratory failure, unspecified, unspecified whether with hypoxia or hypercapnia SNOMED: 949645370 (6) Respiratory distress ICD Codes: R06.03 - Acute respiratory distress SNOMED: 411052244 (7) Dyspnea ICD Codes: R06.00 - Dyspnea, unspecified SNOMED: 314764553 (8) Pneumonia ICD Codes: J18.9 - Pneumonia, unspecified organism SNOMED: 122658461 (9) Acute and chronic respiratory failure ICD Codes: J96.20 - Acute and chronic respiratory failure, unspecified whether with hypoxia or hypercapnia SNOMED: 26196590 (10) Diabetes mellitus type 2 in nonobese ICD Codes: E11.9 - Type 2 diabetes mellitus without complications SNOMED: 563383568 (11) CHF (congestive heart failure) ICD Codes: I50.9 - Heart failure, unspecified SNOMED: 64718061 Qualifiers: Qualified Codes: I50.9 - Heart failure, unspecified (12) Hypoxia ICD Codes: R09.02 - Hypoxemia SNOMED: 978469971 (13) Elevated d-dimer ICD Codes: R79.89 - Other specified abnormal findings of blood chemistry SNOMED: 711387062 (14) Schizophrenia ICD Codes: F20.9 - Schizophrenia, unspecified SNOMED: 18630545 (15) Parkinson disease ICD Codes: G20 - Parkinson's disease SNOMED: 10374940 Status: progressing, unchanged Assessment/Plan: transfer to [facility] for continuation of high level of care chf dm check lytes Subjective ROS Limited/Unobtainable: Yes Allergies: Coded Allergies: LITHIUM (Verified Allergy, Unknown, 02/07/19) Objective Last 24 Hour Vital Signs Date Time Temp Pulse Resp B/P (MAP) Pulse Ox O2 Delivery O2 Flow Rate FiO2 7/29/20 21:00 Nasal Cannula 2.0 01/09/20 20:00 80 01/09/20 19:39 88 20 99 Nasal Cannula 2.0 28 83 20 98 01/09/20 19:39 100 Nasal Cannula 2.0 28 01/09/20 16:00 77 01/09/20 16:00 2.0 01/09/20 16:00 97.7 72 24 112/36 (61) 97 01/09/20 13:23 76 20 99 Nasal Cannula 3.0 32 76 20 94 01/09/20 12:00 2.0 01/09/20 12:00 97.5 68 26 107/33 (57) 95 01/09/20 12:00 73 01/09/20 08:00 97.7 75 22 136/38 (70) 95 01/09/20 08:00 80 01/09/20 08:00 2.0 01/09/20 06:54 71 20 98 Nasal Cannula 3.0 32 69 20 93 01/09/20 06:54 93 Nasal Cannula 3.0 32 01/09/20 04:00 83 01/09/20 04:00 2.0 01/09/20 04:00 96.6 76 19 120/44 (69) 95 01/09/20 00:12 77 20 100 Nasal Cannula 3.0 32 78 20 95 01/09/20 00:00 96.9 85 19 126/46 (72) 98 01/09/20 00:00 2.0 01/09/20 00:00 80 Intake and Output 01/08/20 01/09/20 19:00 07:00 Intake Total 236 ml Balance 236 ml Intake Oral 236 ml # Voids 1 2 # Bowel Movements 1 Laboratory Tests 01/09/20 07:50: Thyroid Stimulating Hormone (TSH) 8.186H, Free Thyroxine 1.34 01/09/20 12:11: POC Whole Blood Glucose 101 01/09/20 17:39: POC Whole Blood Glucose 138H Height (Feet): 5 Height (Inches): 7.00 Weight (Pounds): 221 Dani Perera MD Jan 09, 2020 21:50
--- NOTE | 2020-01-09 23:12 | Psych Consult Progress Note ---
Psychiatry Progress Note Psychiatry Progress Note Medications Current Medications Medications (Trade) Dose Ordered Sig/Angie Route PRN Reason Start Time Stop Time Status Last Admin Dose Admin Acetaminophen (Tylenol) 650 mg Q6H PRN ORAL Mild Pain (Pain Scale 1-3) 01/08/20 10:00 01/31/20 13:59 Acetaminophen (Tylenol) 1,000 mg Q6H PRN ORAL Moderate Pain (Pain Scale 4-6) 01/08/20 10:00 01/31/20 13:59 Amantadine HCl (Symmetrel) 100 mg TWICE A DAY ORAL 01/08/20 09:00 01/11/20 08:59 01/09/20 17:36 Aspirin (ASA) 325 mg DAILY ORAL 01/09/20 09:00 02/16/20 08:59 01/09/20 08:36 Atorvastatin Calcium (Lipitor) 10 mg BEDTIME ORAL 01/08/20 21:00 03/11/20 20:59 01/09/20 20:37 Clonidine HCl (Catapres Tab) 0.1 mg Q6H PRN ORAL For high BP over 160 systolic 01/08/20 10:00 03/11/20 12:30 Dextrose 1,000 ml @ 50 mls/hr Q20H IV 01/07/20 22:30 02/05/20 11:29 01/08/20 18:33 Dextrose (Dextrose 50%) 25 ml Q30M PRN IV Hypoglycemia 01/07/20 22:45 03/12/20 07:14 Dextrose (Dextrose 50%) 50 ml Q30M PRN IV Hypoglycemia 01/07/20 22:45 03/12/20 07:14 Divalproex Sodium (Depakote Sprinkles) 250 mg Q12HR ORAL 01/08/20 21:00 02/22/20 20:59 01/09/20 20:37 Docusate Sodium (Colace) 100 mg TWICE A DAY ORAL 01/08/20 09:00 02/06/20 08:59 01/09/20 17:36 Ipratropium [place] (Atrovent) 500 mcg Q6HRT HHN 01/08/20 01:00 01/11/20 12:59 01/09/20 19:37 Lactulose (Cephulac) 20 gm BID ORAL 01/08/20 18:00 02/07/20 17:59 01/09/20 17:36 Lansoprazole (Prevacid) 30 mg BIAC ORAL 01/08/20 16:30 02/07/20 16:29 01/09/20 17:04 Levothyroxine Sodium (Synthroid) 125 mcg DAILY@0630 ORAL 01/09/20 06:30 02/07/20 06:29 01/09/20 06:01 Nitroglycerin (Ntg) 0.4 mg Q5MIN X 3 DOSES PRN SL CHEST PAIN 01/07/20 22:30 01/10/20 21:44 Pantoprazole (Protonix) 40 mg EVERY 12 HOURS ORAL 01/08/20 09:00 02/05/20 20:59 01/09/20 20:38 Polyethylene Glycol (Miralax) 17 gm BEDTIME ORAL 01/08/20 21:00 01/18/20 20:59 01/09/20 20:38 Polyethylene Glycol (Miralax) 17 gm DAILYPRN PRN ORAL Constipation 01/08/20 19:00 01/23/20 18:59 Quetiapine Fumarate (SEROqueL) 50 mg Q12HR ORAL 01/08/20 21:00 02/05/20 20:59 01/09/20 20:38 Neurological/Psychiatric: Reports: anxiety Allergies: Coded Allergies: LITHIUM (Verified Allergy, Unknown, 02/07/19) Objective Data Height (Feet): 5 Height (Inches): 7.00 Weight (Pounds): 221 General Appearance: alert, confused Additional Comments: waxing and waning consciousness. Episodes of agitation. Mood is anxious. Affect is flat. Thought process, there is a paucity of thought content. Thought content, no suicidal or homicidal ideation. Cognition is impaired. Insight and judgment are impaired. ASSESSMENT: [place]if[place] I Schizoaffective disorder. Acute encephalopathy. [place]if[place] II Deferred. Clif[place] III As above. [place]if[place] IV Low. [place] V 20. PLAN: 1. Zyprexa 5 mg b.i.d. Assessment/Plan Status: progressing, unchanged Kiana Hernandez MD Jan 09, 2020 23:12
[2020-01-10] VITALS: BP 127/41
[2020-01-10] MEDS: Ipratropium 0.02% Inh Soln 2.5ml UD HHN SCH ×4 (01:42→19:24)
[2020-01-10 04:00] VITALS: BP 130/37
[2020-01-10] MEDS: Levothyroxine 125mcg tab ORAL SCH (06:08)
[2020-01-10 06:43] LABS: HEMATOCRIT 24.5 % (37.0-47.0); HEMOGLOBIN 7.8 G/DL (12.0-16.0); MEAN CORPUSCULAR VOLUME 100 FL (80-99); PLATELET COUNT 112 K/UL (150-450); RED BLOOD COUNT 2.45 M/UL (4.20-5.40); RED CELL DISTRIBUTION WIDTH 13.4 % (11.6-14.8); WHITE BLOOD COUNT 4.7 K/UL (4.8-10.8)
--- NOTE | 2020-01-10 06:44 | General Progress Note ---
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 - Other specified diabetes mellitus without complications SNOMED: 076352509 (2) Parkinson disease ICD Codes: G20 - Parkinson's disease SNOMED: 86832370 (3) Schizophrenia ICD Codes: F20.9 - Schizophrenia, unspecified SNOMED: 92093243 (4) Hypertension ICD Codes: I10 - Essential (primary) hypertension SNOMED: 82453983 (5) Respiratory failure ICD Codes: J96.90 - Respiratory failure, unspecified, unspecified whether with hypoxia or hypercapnia SNOMED: 632330438 (6) Hypothyroidism ICD Codes: E03.9 - Hypothyroidism, unspecified SNOMED: 99110406 (7) Diabetes mellitus type 2 in nonobese ICD Codes: E11.9 - Type 2 diabetes mellitus without complications SNOMED: 338504684 Status: progressing, unchanged Assessment/Plan: increase Levothyroxine 125 to 150 mcg daily repeat TSH, free T4 in 3 weeks no need for glucose monitoring I sign off Subjective ROS Limited/Unobtainable: Yes Allergies: Coded Allergies: LITHIUM (Verified Allergy, Unknown, 02/07/19) Subjective events noted glucose values are normal TSH increased to 8 from 4 Item Value Date Time Bedside Blood Glucose 104 mg/dl 01/10/20 0600 Bedside Blood Glucose 89 mg/dl 01/10/20 0000 Bedside Blood Glucose 138 mg/dl H 01/09/20 1800 Bedside Blood Glucose 101 mg/dl 01/09/20 1200 Bedside Blood Glucose 94 mg/dl 01/09/20 0600 Objective Last 24 Hour Vital Signs Date Time Temp Pulse Resp B/P (MAP) Pulse Ox O2 Delivery O2 Flow Rate FiO2 01/10/20 04:00 2.0 01/10/20 04:00 79 01/10/20 04:00 97.9 74 19 130/37 (68) 92 01/10/20 01:42 82 20 98 Nasal Cannula 2.0 28 80 20 95 01/10/20 00:00 79 01/10/20 00:00 2.0 01/10/20 00:00 96.8 82 18 127/41 (69) 96 01/09/20 21:00 Nasal Cannula 2.0 01/09/20 20:00 98.1 78 18 121/38 (65) 96 01/09/20 20:00 80 01/09/20 20:00 2.0 01/09/20 19:39 88 20 99 Nasal Cannula 2.0 28 83 20 98 01/09/20 19:39 100 Nasal Cannula 2.0 28 01/09/20 16:00 77 01/09/20 16:00 2.0 01/09/20 16:00 97.7 72 24 112/36 (61) 97 01/09/20 13:23 76 20 99 Nasal Cannula 3.0 32 76 20 94 01/09/20 12:00 2.0 01/09/20 12:00 97.5 68 26 107/33 (57) 95 01/09/20 12:00 73 01/09/20 08:00 97.7 75 22 136/38 (70) 95 01/09/20 08:00 80 01/09/20 08:00 2.0 01/09/20 06:54 71 20 98 Nasal Cannula 3.0 32 69 20 93 01/09/20 06:54 93 Nasal Cannula 3.0 32 Intake and Output 01/09/20 01/10/20 19:00 07:00 Intake Total 472 ml 550 ml Balance 472 ml 550 ml Intake Oral 472 ml IV Total 550 ml # Voids 1 2 Laboratory Tests 01/09/20 07:50: Thyroid Stimulating Hormone (TSH) 8.186H, Free Thyroxine 1.34 01/09/20 12:11: POC Whole Blood Glucose 101 01/09/20 17:39: POC Whole Blood Glucose 138H 01/10/20 00:08: POC Whole Blood Glucose 89 01/10/20 05:20: White Blood Count [Pending], Red Blood Count [Pending], Hemoglobin [Pending], Hematocrit [Pending], Mean Corpuscular Volume [Pending], Mean Corpuscular Hemoglobin [Pending], Mean Corpuscular Hemoglobin Concent [Pending], Red Cell Distribution Width [Pending], Platelet Count [Pending], Mean Platelet Volume [ Pending], Neutrophils (%) (Auto) [Pending], Lymphocytes (%) (Auto) [Pending], Monocytes (%) (Auto) [Pending], Eosinophils (%) (Auto) [Pending], Basophils (%) (Auto) [Pending], Sodium Level [Pending], Potassium Level [Pending], Chloride Level [Pending], Carbon Dioxide Level [Pending], Blood Urea Nitrogen [Pending], Creatinine [Pending], Estimat Glomerular Filtration Rate [Pending], Glucose Level [Pending], Calcium Level [Pending], Phosphorus Level [Pending], Magnesium Level [Pending], Total Bilirubin [Pending], Aspartate Amino Transf (AST/SGOT) [ Pending], Alanine Aminotransferase (ALT/SGPT) [Pending], Alkaline Phosphatase [ Pending], Total Protein [Pending], Albumin [Pending], Globulin [Pending] 01/10/20 05:34: POC Whole Blood Glucose 104 Height (Feet): 5 Height (Inches): 7.00 Weight (Pounds): 230 General Appearance: no apparent distress Neck: normal alignment Respiratory/Chest: decreased breath sounds Abdomen: normal bowel sounds Pelvis: normal external exam Objective Current Medications Medications (Trade) Dose Ordered Sig/Angie Route PRN Reason Start Time Stop Time Status Last Admin Dose Admin Acetaminophen (Tylenol) 650 mg Q6H PRN ORAL Mild Pain (Pain Scale 1-3) 01/08/20 10:00 01/31/20 13:59 Acetaminophen (Tylenol) 1,000 mg Q6H PRN ORAL Moderate Pain (Pain Scale 4-6) 01/08/20 10:00 01/31/20 13:59 Amantadine HCl (Symmetrel) 100 mg TWICE A DAY ORAL 01/08/20 09:00 01/11/20 08:59 01/09/20 17:36 Aspirin (ASA) 325 mg DAILY ORAL 01/09/20 09:00 02/16/20 08:59 01/09/20 08:36 Atorvastatin Calcium (Lipitor) 10 mg BEDTIME ORAL 01/08/20 21:00 03/11/20 20:59 01/09/20 20:37 Clonidine HCl (Catapres Tab) 0.1 mg Q6H PRN ORAL For high BP over 160 systolic 01/08/20 10:00 03/11/20 12:30 Dextrose 1,000 ml @ 50 mls/hr Q20H IV 01/07/20 22:30 02/05/20 11:29 01/10/20 06:35 Dextrose (Dextrose 50%) 25 ml Q30M PRN IV Hypoglycemia 01/07/20 22:45 03/12/20 07:14 Dextrose (Dextrose 50%) 50 ml Q30M PRN IV Hypoglycemia 01/07/20 22:45 03/12/20 07:14 Divalproex Sodium (Depakote Sprinkles) 250 mg Q12HR ORAL 01/08/20 21:00 02/22/20 20:59 01/09/20 20:37 Docusate Sodium (Colace) 100 mg TWICE A DAY ORAL 01/08/20 09:00 02/06/20 08:59 01/09/20 17:36 Ipratropium [place] (Atrovent) 500 mcg Q6HRT HHN 01/08/20 01:00 01/11/20 12:59 01/10/20 01:42 Lactulose (Cephulac) 20 gm BID ORAL 01/08/20 18:00 02/07/20 17:59 01/09/20 17:36 Lansoprazole (Prevacid) 30 mg BIAC ORAL 01/08/20 16:30 02/07/20 16:29 01/10/20 06:08 Levothyroxine Sodium (Synthroid) 125 mcg DAILY@0630 ORAL 01/09/20 06:30 02/07/20 06:29 01/10/20 06:08 Nitroglycerin (Ntg) 0.4 mg Q5MIN X 3 DOSES PRN SL CHEST PAIN 01/07/20 22:30 01/10/20 21:44 Olanzapine (ZyPREXA) 5 mg BID ORAL 01/10/20 09:00 02/24/20 08:59 Pantoprazole (Protonix) 40 mg EVERY 12 HOURS ORAL 01/08/20 09:00 02/05/20 20:59 01/09/20 20:38 Polyethylene Glycol (Miralax) 17 gm BEDTIME ORAL 01/08/20 21:00 01/18/20 20:59 01/09/20 20:38 Polyethylene Glycol (Miralax) 17 gm DAILYPRN PRN ORAL Constipation 01/08/20 19:00 01/23/20 18:59 Jabari Adams MD Jan 10, 2020 06:44
[2020-01-10 07:16] LABS: ALANINE AMINOTRANSFERASE 13 U/L (12-78); ALBUMIN 2.5 G/DL (3.4-5.0); ALBUMIN/GLOBULIN RATIO 0.7 (1.0-2.7); ALKALINE PHOSPHATASE 49 U/L (46-116); ASPARTATE AMINO TRANSFERASE 12 U/L (15-37); BILIRUBIN,TOTAL 0.6 MG/DL (0.2-1.0); BLOOD UREA NITROGEN 29 mg/dL (7-18); CHLORIDE 101 MMOL/L (98-107); CREATININE 1.3 MG/DL (0.55-1.30); PHOSPHORUS 2.6 MG/DL (2.5-4.9); POTASSIUM 3.8 MMOL/L (3.5-5.1); SODIUM 140 MMOL/L (136-145)
[2020-01-10 07:17] LABS: CARBON DIOXIDE 41 MMOL/L (21-32)
--- NOTE | 2020-01-10 07:30 | NUR ---
NURSE NOTES: Received report from Kiera/Gretchen RN. Pt is alert and oriented x3, no shortness of breath but showing signs of agitation, reports 0/10 pain. Skin intact, sacral redness noted. Pt tries to get out of bed frequently, fall precautions in place, able to reposition self. Bed locked and in lowest position, bed alarm placed, call light within reach.
--- NOTE | 2020-01-10 07:39 | NUR ---
Nurses notes: Informed Dr. Perera regarding pt's CO2 level (41), and indorsed to DARREL Marley.
--- NOTE | 2020-01-10 07:39 | NUR ---
HAND-OFF: Report given to DARREL Marley and plan of care endorsed.
[2020-01-10 08:00] VITALS: BP 132/58
--- NOTE | 2020-01-10 08:12 | NUR ---
NURSE NOTES: Received a call from Dr Perera. Per , report CO2 level to Dr Ochoa. Also, per , ask Dr Myers to do the med recon. Will let the doctors know.
[2020-01-10] MEDS: Lactulose 20gm/30ml UDC ORAL SCH ×4 (09:00→17:22)
[2020-01-10] MEDS: Docusate 100mg cap ORAL SCH ×2 (09:15→17:16)
[2020-01-10] MEDS: Depakote 125mg Sprinkles ORAL SCH (09:16)
[2020-01-10] MEDS: Amantadine 100mg cap ORAL SCH ×2 (09:16→17:17)
--- NOTE | 2020-01-10 09:41 | Infectious Diseases Prog Note ---
Assessment/Plan Assessment/Plan IMPRESSION: COPD exacerbation, Pneumonia, COID19 X 2: negative Acute respiratory failure with hypercapnia Dementia, Parkinson, Mitral valve regurgitation, Hypertension, Hypothyroidism. MRSA carrier Leukocytosis resolved DM Anemia RECOMMENDATION: Observe off antibiotic Waiting for placement Subjective ROS Limited/Unobtainable: Yes Constitutional: Denies: fever Allergies: Coded Allergies: LITHIUM (Verified Allergy, Unknown, 02/07/19) Objective Last 24 Hour Vital Signs Date Time Temp Pulse Resp B/P (MAP) Pulse Ox O2 Delivery O2 Flow Rate FiO2 01/10/20 08:16 95 Nasal Cannula 2.0 28 01/10/20 08:00 96.8 77 18 132/58 (82) 98 01/10/20 08:00 2.0 01/10/20 08:00 72 01/10/20 07:58 75 18 95 Nasal Cannula 2.0 28 73 18 93 01/10/20 04:00 2.0 01/10/20 04:00 79 01/10/20 04:00 97.9 74 19 130/37 (68) 92 01/10/20 01:42 82 20 98 Nasal Cannula 2.0 28 80 20 95 01/10/20 00:00 79 01/10/20 00:00 2.0 01/10/20 00:00 96.8 82 18 127/41 (69) 96 01/09/20 21:00 Nasal Cannula 2.0 01/09/20 20:00 98.1 78 18 121/38 (65) 96 01/09/20 20:00 80 01/09/20 20:00 2.0 01/09/20 19:39 88 20 99 Nasal Cannula 2.0 28 83 20 98 01/09/20 19:39 100 Nasal Cannula 2.0 28 01/09/20 16:00 77 01/09/20 16:00 2.0 01/09/20 16:00 97.7 72 24 112/36 (61) 97 01/09/20 13:23 76 20 99 Nasal Cannula 3.0 32 76 20 94 01/09/20 12:00 2.0 01/09/20 12:00 97.5 68 26 107/33 (57) 95 01/09/20 12:00 73 Height (Feet): 5 Height (Inches): 7.00 Weight (Pounds): 230 General Appearance: no acute distress HEENT: mucous membranes moist Respiratory/Chest: rhonchi - bilaterally, other - oxygen by nasal cannula Cardiovascular: normal rate Abdomen: soft, non tender Extremities: no edema Neurologic/Psychiatric: alert, responsive Laboratory Tests Test 01/09/20 12:11 01/09/20 17:39 01/10/20 00:08 01/10/20 05:20 POC Whole Blood Glucose 101 MG/DL (74-106) 138 MG/DL (74-106) H 89 MG/DL (74-106) White Blood Count 4.7 K/UL (4.8-10.8) L Red Blood Count 2.45 M/UL (4.20-5.40) L Hemoglobin 7.8 G/DL (12.0-16.0) L Hematocrit 24.5 % (37.0-47.0) L Mean Corpuscular Volume 100 FL (80-99) H Mean Corpuscular Hemoglobin 31.7 PG (27.0-31.0) H Mean Corpuscular Hemoglobin Concent 31.7 G/DL (32.0-36.0) L Red Cell Distribution Width 13.4 % (11.6-14.8) Platelet Count 112 K/UL (150-450) L Mean Platelet Volume 7.0 FL (6.5-10.1) Neutrophils (%) (Auto) % (45.0-75.0) Lymphocytes (%) (Auto) % (20.0-45.0) Monocytes (%) (Auto) % (1.0-10.0) Eosinophils (%) (Auto) % (0.0-3.0) Basophils (%) (Auto) % (0.0-2.0) Neutrophils % (Manual) Pending Lymphocytes % (Manual) Pending Platelet Estimate Pending Platelet Morphology Pending Sodium Level 140 MMOL/L (136-145) Potassium Level 3.8 MMOL/L (3.5-5.1) Chloride Level 101 MMOL/L (98-107) Carbon Dioxide Level 41 MMOL/L (21-32) *H Blood Urea Nitrogen 29 mg/dL (7-18) H Creatinine 1.3 MG/DL (0.55-1.30) Estimat Glomerular Filtration Rate 39.4 mL/min (>60) Glucose Level 95 MG/DL (74-106) Calcium Level 8.0 MG/DL (8.5-10.1) L Phosphorus Level 2.6 MG/DL (2.5-4.9) Magnesium Level 1.9 MG/DL (1.8-2.4) Total Bilirubin 0.6 MG/DL (0.2-1.0) Aspartate Amino Transf (AST/SGOT) 12 U/L (15-37) L Alanine Aminotransferase (ALT/SGPT) 13 U/L (12-78) Alkaline Phosphatase 49 U/L (46-116) Total Protein 6.1 G/DL (6.4-8.2) L Albumin 2.5 G/DL (3.4-5.0) L Globulin 3.6 g/dL Albumin/Globulin Ratio 0.7 (1.0-2.7) L Test 01/10/20 05:34 POC Whole Blood Glucose 104 MG/DL (74-106) Current Medications Medications (Trade) Dose Ordered Sig/Angie Route PRN Reason Start Time Stop Time Status Last Admin Dose Admin Acetaminophen (Tylenol) 650 mg Q6H PRN ORAL Mild Pain (Pain Scale 1-3) 01/08/20 10:00 01/31/20 13:59 Acetaminophen (Tylenol) 1,000 mg Q6H PRN ORAL Moderate Pain (Pain Scale 4-6) 01/08/20 10:00 01/31/20 13:59 Amantadine HCl (Symmetrel) 100 mg TWICE A DAY ORAL 01/08/20 09:00 01/11/20 08:59 01/10/20 09:16 Aspirin (ASA) 325 mg DAILY ORAL 01/09/20 09:00 02/16/20 08:59 01/10/20 09:16 Atorvastatin Calcium (Lipitor) 10 mg BEDTIME ORAL 01/08/20 21:00 03/11/20 20:59 01/09/20 20:37 Clonidine HCl (Catapres Tab) 0.1 mg Q6H PRN ORAL For high BP over 160 systolic 01/08/20 10:00 03/11/20 12:30 Dextrose 1,000 ml @ 50 mls/hr Q20H IV 01/07/20 22:30 02/05/20 11:29 01/10/20 06:35 Dextrose (Dextrose 50%) 25 ml Q30M PRN IV Hypoglycemia 01/07/20 22:45 03/12/20 07:14 Dextrose (Dextrose 50%) 50 ml Q30M PRN IV Hypoglycemia 01/07/20 22:45 03/12/20 07:14 Divalproex Sodium (Depakote Sprinkles) 250 mg Q12HR ORAL 01/08/20 21:00 02/22/20 20:59 01/10/20 09:16 Docusate Sodium (Colace) 100 mg TWICE A DAY ORAL 01/08/20 09:00 02/06/20 08:59 01/10/20 09:15 Ipratropium [place] (Atrovent) 500 mcg Q6HRT HHN 01/08/20 01:00 01/11/20 12:59 01/10/20 07:48 Lactulose (Cephulac) 20 gm BID ORAL 01/08/20 18:00 02/07/20 17:59 01/09/20 17:36 Lansoprazole (Prevacid) 30 mg BIAC ORAL 01/08/20 16:30 02/07/20 16:29 01/10/20 06:08 Levothyroxine Sodium (Synthroid) 150 mcg DAILY@0630 ORAL 01/11/20 06:30 02/07/20 06:29 Nitroglycerin (Ntg) 0.4 mg Q5MIN X 3 DOSES PRN SL CHEST PAIN 01/07/20 22:30 01/10/20 21:44 Olanzapine (ZyPREXA) 5 mg BID ORAL 01/10/20 09:00 02/24/20 08:59 01/10/20 09:16 Pantoprazole (Protonix) 40 mg EVERY 12 HOURS ORAL 01/08/20 09:00 02/05/20 20:59 01/10/20 09:15 Polyethylene Glycol (Miralax) 17 gm BEDTIME ORAL 01/08/20 21:00 01/18/20 20:59 01/09/20 20:38 Polyethylene Glycol (Miralax) 17 gm DAILYPRN PRN ORAL Constipation 01/08/20 19:00 01/23/20 18:59 Lei Chan MD Jan 10, 2020 09:41
--- NOTE | 2020-01-10 09:54 | Pulmonology Progress Note ---
Subjective ROS Limited/Unobtainable: Yes Interval Events: None new Constitutional: Denies: fever HEENT: Repors: no symptoms Respiratory: Reports: no symptoms Cardiovascular: Reports: no symptoms Gastrointestinal/Abdominal: Reports: diarrhea Genitourinary: Reports: no symptoms Allergies: Coded Allergies: LITHIUM (Verified Allergy, Unknown, 02/07/19) All Systems: reviewed and negative except above Objective Last 24 Hour Vital Signs Date Time Temp Pulse Resp B/P (MAP) Pulse Ox O2 Delivery O2 Flow Rate FiO2 01/10/20 08:16 95 Nasal Cannula 2.0 28 01/10/20 08:00 96.8 77 18 132/58 (82) 98 01/10/20 08:00 2.0 01/10/20 08:00 72 01/10/20 07:58 75 18 95 Nasal Cannula 2.0 28 73 18 93 01/10/20 04:00 2.0 01/10/20 04:00 79 01/10/20 04:00 97.9 74 19 130/37 (68) 92 01/10/20 01:42 82 20 98 Nasal Cannula 2.0 28 80 20 95 01/10/20 00:00 79 01/10/20 00:00 2.0 01/10/20 00:00 96.8 82 18 127/41 (69) 96 01/09/20 21:00 Nasal Cannula 2.0 01/09/20 20:00 98.1 78 18 121/38 (65) 96 01/09/20 20:00 80 01/09/20 20:00 2.0 01/09/20 19:39 88 20 99 Nasal Cannula 2.0 28 83 20 98 01/09/20 19:39 100 Nasal Cannula 2.0 28 01/09/20 16:00 77 01/09/20 16:00 2.0 01/09/20 16:00 97.7 72 24 112/36 (61) 97 01/09/20 13:23 76 20 99 Nasal Cannula 3.0 32 76 20 94 01/09/20 12:00 2.0 01/09/20 12:00 97.5 68 26 107/33 (57) 95 01/09/20 12:00 73 Intake and Output 01/09/20 01/10/20 19:00 07:00 Intake Total 472 ml 550 ml Balance 472 ml 550 ml Intake Oral 472 ml IV Total 550 ml # Voids 1 2 General Appearance: no acute distress Respiratory: chest wall non-tender, lungs clear Cardiovascular: normal peripheral pulses, normal rate Abdomen: normal bowel sounds Laboratory Tests 01/09/20 12:11: POC Whole Blood Glucose 101 01/09/20 17:39: POC Whole Blood Glucose 138H 01/10/20 00:08: POC Whole Blood Glucose 89 01/10/20 05:20: White Blood Count 4.7L, Red Blood Count 2.45L, Hemoglobin 7.8L, Hematocrit 24.5L , Mean Corpuscular Volume 100H, Mean Corpuscular Hemoglobin 31.7H, Mean Corpuscular Hemoglobin Concent 31.7L, Red Cell Distribution Width 13.4, Platelet Count 112L, Mean Platelet Volume 7.0, Neutrophils (%) (Auto) , Lymphocytes (%) (Auto) , Monocytes (%) (Auto) , Eosinophils (%) (Auto) , Basophils (%) (Auto) , Neutrophils % (Manual) [Pending], Lymphocytes % (Manual) [Pending], Platelet Estimate [Pending], Platelet Morphology [Pending], Sodium Level 140, Potassium Level 3.8, Chloride Level 101, Carbon Dioxide Level 41*H, Blood Urea Nitrogen 29H, Creatinine 1.3, Estimat Glomerular Filtration Rate 39.4 , Glucose Level 95, Calcium Level 8.0L, Phosphorus Level 2.6, Magnesium Level 1.9, Total Bilirubin 0.6, Aspartate Amino Transf (AST/SGOT) 12L, Alanine Aminotransferase (ALT/SGPT) 13, Alkaline Phosphatase 49, Total Protein 6.1L, Albumin 2.5L, Globulin 3.6, Albumin/Globulin Ratio 0.7L 01/10/20 05:34: POC Whole Blood Glucose 104 Current Medications Medications (Trade) Dose Ordered Sig/Angie Route PRN Reason Start Time Stop Time Status Last Admin Dose Admin Acetaminophen (Tylenol) 650 mg Q6H PRN ORAL Mild Pain (Pain Scale 1-3) 01/08/20 10:00 01/31/20 13:59 Acetaminophen (Tylenol) 1,000 mg Q6H PRN ORAL Moderate Pain (Pain Scale 4-6) 01/08/20 10:00 01/31/20 13:59 Amantadine HCl (Symmetrel) 100 mg TWICE A DAY ORAL 01/08/20 09:00 01/11/20 08:59 01/10/20 09:16 Aspirin (ASA) 325 mg DAILY ORAL 01/09/20 09:00 02/16/20 08:59 01/10/20 09:16 Atorvastatin Calcium (Lipitor) 10 mg BEDTIME ORAL 01/08/20 21:00 03/11/20 20:59 01/09/20 20:37 Clonidine HCl (Catapres Tab) 0.1 mg Q6H PRN ORAL For high BP over 160 systolic 01/08/20 10:00 03/11/20 12:30 Dextrose 1,000 ml @ 50 mls/hr Q20H IV 01/07/20 22:30 02/05/20 11:29 01/10/20 06:35 Dextrose (Dextrose 50%) 25 ml Q30M PRN IV Hypoglycemia 01/07/20 22:45 03/12/20 07:14 Dextrose (Dextrose 50%) 50 ml Q30M PRN IV Hypoglycemia 01/07/20 22:45 03/12/20 07:14 Divalproex Sodium (Depakote Sprinkles) 250 mg Q12HR ORAL 01/08/20 21:00 02/22/20 20:59 01/10/20 09:16 Docusate Sodium (Colace) 100 mg TWICE A DAY ORAL 01/08/20 09:00 02/06/20 08:59 01/10/20 09:15 Ipratropium [place] (Atrovent) 500 mcg Q6HRT HHN 01/08/20 01:00 01/11/20 12:59 01/10/20 07:48 Lactulose (Cephulac) 20 gm BID ORAL 01/08/20 18:00 02/07/20 17:59 01/09/20 17:36 Lansoprazole (Prevacid) 30 mg BIAC ORAL 01/08/20 16:30 02/07/20 16:29 01/10/20 06:08 Levothyroxine Sodium (Synthroid) 150 mcg DAILY@0630 ORAL 01/11/20 06:30 02/07/20 06:29 Nitroglycerin (Ntg) 0.4 mg Q5MIN X 3 DOSES PRN SL CHEST PAIN 01/07/20 22:30 7/30/20 21:44 Olanzapine (ZyPREXA) 5 mg BID ORAL 01/10/20 09:00 02/24/20 08:59 01/10/20 09:16 Pantoprazole (Protonix) 40 mg EVERY 12 HOURS ORAL 01/08/20 09:00 02/05/20 20:59 01/10/20 09:15 Polyethylene Glycol (Miralax) 17 gm BEDTIME ORAL 01/08/20 21:00 01/18/20 20:59 01/09/20 20:38 Polyethylene Glycol (Miralax) 17 gm DAILYPRN PRN ORAL Constipation 01/08/20 19:00 01/23/20 18:59 Assessment/Plan Assessment/Plan IMPRESSION: 1. Respiratory failure. Improved; now on nasal o2 2. Has healthcare-associated pneumonia; is negative for COVID-19. 3. Psych disorder. 4. Obesity. 5. Hypertension. 6. Hypernatremia DISCUSSION: Has negative COVID-19 swab. Off steroids Off Lasix and Diamox DC to LTAC/SNF Emerita Fan Omar Syed MD Jan 10, 2020 09:54
--- NOTE | 2020-01-10 10:02 | General Progress Note ---
Assessment/Plan Status: progressing, unchanged Assessment/Plan: Assessment - Resp failure - r/o COVID -- x 2 negative - COPD - HTN - Anemia - Abnormal LFT -anemia Recommendations - extubated now - Elevate HOB - abx - follow labs - f/u hepatitis serologies>>> neg -repeat labs -on oral diet now -drop in H&H without obvious bleed -repeat cbc in am -ppi -bowel regimen Subjective ROS Limited/Unobtainable: No Allergies: Coded Allergies: LITHIUM (Verified Allergy, Unknown, 02/07/19) Objective Last 24 Hour Vital Signs Date Time Temp Pulse Resp B/P (MAP) Pulse Ox O2 Delivery O2 Flow Rate FiO2 01/10/20 08:16 95 Nasal Cannula 2.0 28 01/10/20 08:00 96.8 77 18 132/58 (82) 98 01/10/20 08:00 2.0 01/10/20 08:00 72 01/10/20 07:58 75 18 95 Nasal Cannula 2.0 28 73 18 93 01/10/20 04:00 2.0 01/10/20 04:00 79 01/10/20 04:00 97.9 74 19 130/37 (68) 92 01/10/20 01:42 82 20 98 Nasal Cannula 2.0 28 80 20 95 01/10/20 00:00 79 01/10/20 00:00 2.0 01/10/20 00:00 96.8 82 18 127/41 (69) 96 01/09/20 21:00 Nasal Cannula 2.0 01/09/20 20:00 98.1 78 18 121/38 (65) 96 01/09/20 20:00 80 01/09/20 20:00 2.0 01/09/20 19:39 88 20 99 Nasal Cannula 2.0 28 83 20 98 01/09/20 19:39 100 Nasal Cannula 2.0 28 01/09/20 16:00 77 01/09/20 16:00 2.0 01/09/20 16:00 97.7 72 24 112/36 (61) 97 01/09/20 13:23 76 20 99 Nasal Cannula 3.0 32 76 20 94 01/09/20 12:00 2.0 01/09/20 12:00 97.5 68 26 107/33 (57) 95 01/09/20 12:00 73 Intake and Output 01/09/20 01/10/20 19:00 07:00 Intake Total 472 ml 550 ml Balance 472 ml 550 ml Intake Oral 472 ml IV Total 550 ml # Voids 1 2 Laboratory Tests 01/09/20 12:11: POC Whole Blood Glucose 101 01/09/20 17:39: POC Whole Blood Glucose 138H 01/10/20 00:08: POC Whole Blood Glucose 89 01/10/20 05:20: White Blood Count 4.7L, Red Blood Count 2.45L, Hemoglobin 7.8L, Hematocrit 24.5L , Mean Corpuscular Volume 100H, Mean Corpuscular Hemoglobin 31.7H, Mean Corpuscular Hemoglobin Concent 31.7L, Red Cell Distribution Width 13.4, Platelet Count 112L, Mean Platelet Volume 7.0, Neutrophils (%) (Auto) , Lymphocytes (%) (Auto) , Monocytes (%) (Auto) , Eosinophils (%) (Auto) , Basophils (%) (Auto) , Differential Total Cells Counted 100, Neutrophils % ( Manual) 70, Lymphocytes % (Manual) 25, Monocytes % (Manual) 5, Eosinophils % ( Manual) 0, Basophils % (Manual) 0, Band Neutrophils 0, Platelet Estimate DecreasedL, Platelet Morphology Normal, Hypochromasia 1+, Macrocytosis 1+, Sodium Level 140, Potassium Level 3.8, Chloride Level 101, Carbon Dioxide Level 41*H, Blood Urea Nitrogen 29H, Creatinine 1.3, Estimat Glomerular Filtration Rate 39.4, Glucose Level 95, Calcium Level 8.0L, Phosphorus Level 2.6, Magnesium Level 1.9, Total Bilirubin 0.6, Aspartate Amino Transf (AST/SGOT) 12L , Alanine Aminotransferase (ALT/SGPT) 13, Alkaline Phosphatase 49, Total Protein 6.1L, Albumin 2.5L, Globulin 3.6, Albumin/Globulin Ratio 0.7L 01/10/20 05:34: POC Whole Blood Glucose 104 Height (Feet): 5 Height (Inches): 7.00 Weight (Pounds): 230 General Appearance: no apparent distress EENT: normal ENT inspection Neck: supple Cardiovascular: normal rate Respiratory/Chest: decreased breath sounds Abdomen: normal bowel sounds, non tender, soft Extremities: non-tender Kirk Vidal MD Jan 10, 2020:02
--- NOTE | 2020-01-10 10:12 | Cardiac Electrophysiology PN ---
Assessment/Plan Assessment/Plan 1. S/P Respiratory failure. Normal EF. On 2 liter NC 2. Bradycardia requiring atropine due to respiratory failure . No further 3. Bilateral UE edema. Venous Duplex was negative on 12/12/19. 4. History of Parkinson disease. 5. Hyperlipidemia. DW RN Subjective Subjective Alert in NAD on 2 liter nasal cannula. RN at bedside. Placement pending Objective Last 24 Hour Vital Signs Date Time Temp Pulse Resp B/P (MAP) Pulse Ox O2 Delivery O2 Flow Rate FiO2 01/10/20 08:16 95 Nasal Cannula 2.0 28 01/10/20 08:00 96.8 77 18 132/58 (82) 98 01/10/20 08:00 2.0 01/10/20 08:00 72 01/10/20 07:58 75 18 95 Nasal Cannula 2.0 28 73 18 93 01/10/20 04:00 2.0 01/10/20 04:00 79 01/10/20 04:00 97.9 74 19 130/37 (68) 92 01/10/20 01:42 82 20 98 Nasal Cannula 2.0 28 80 20 95 01/10/20 00:00 79 01/10/20 00:00 2.0 01/10/20 00:00 96.8 82 18 127/41 (69) 96 01/09/20 21:00 Nasal Cannula 2.0 01/09/20 20:00 98.1 78 18 121/38 (65) 96 01/09/20 20:00 80 01/09/20 20:00 2.0 01/09/20 19:39 88 20 99 Nasal Cannula 2.0 28 83 20 98 01/09/20 19:39 100 Nasal Cannula 2.0 28 01/09/20 16:00 77 01/09/20 16:00 2.0 01/09/20 16:00 97.7 72 24 112/36 (61) 97 01/09/20 13:23 76 20 99 Nasal Cannula 3.0 32 76 20 94 01/09/20 12:00 2.0 01/09/20 12:00 97.5 68 26 107/33 (57) 95 01/09/20 12:00 73 Intake and Output 01/09/20 01/10/20 19:00 07:00 Intake Total 472 ml 550 ml Balance 472 ml 550 ml Intake Oral 472 ml IV Total 550 ml # Voids 1 2 Laboratory Tests Test 01/09/20 12:11 01/09/20 17:39 01/10/20 00:08 01/10/20 05:20 POC Whole Blood Glucose 101 MG/DL (74-106) 138 MG/DL (74-106) H 89 MG/DL (74-106) White Blood Count 4.7 K/UL (4.8-10.8) L Red Blood Count 2.45 M/UL (4.20-5.40) L Hemoglobin 7.8 G/DL (12.0-16.0) L Hematocrit 24.5 % (37.0-47.0) L Mean Corpuscular Volume 100 FL (80-99) H Mean Corpuscular Hemoglobin 31.7 PG (27.0-31.0) H Mean Corpuscular Hemoglobin Concent 31.7 G/DL (32.0-36.0) L Red Cell Distribution Width 13.4 % (11.6-14.8) Platelet Count 112 K/UL (150-450) L Mean Platelet Volume 7.0 FL (6.5-10.1) Neutrophils (%) (Auto) % (45.0-75.0) Lymphocytes (%) (Auto) % (20.0-45.0) Monocytes (%) (Auto) % (1.0-10.0) Eosinophils (%) (Auto) % (0.0-3.0) Basophils (%) (Auto) % (0.0-2.0) Differential Total Cells Counted 100 Neutrophils % (Manual) 70 % (45-75) Lymphocytes % (Manual) 25 % (20-45) Monocytes % (Manual) 5 % (1-10) Eosinophils % (Manual) 0 % (0-3) Basophils % (Manual) 0 % (0-2) Band Neutrophils 0 % (0-8) Platelet Estimate Decreased L Platelet Morphology Normal Hypochromasia 1+ Macrocytosis 1+ Sodium Level 140 MMOL/L (136-145) Potassium Level 3.8 MMOL/L (3.5-5.1) Chloride Level 101 MMOL/L (98-107) Carbon Dioxide Level 41 MMOL/L (21-32) *H Blood Urea Nitrogen 29 mg/dL (7-18) H Creatinine 1.3 MG/DL (0.55-1.30) Estimat Glomerular Filtration Rate 39.4 mL/min (>60) Glucose Level 95 MG/DL (74-106) Calcium Level 8.0 MG/DL (8.5-10.1) L Phosphorus Level 2.6 MG/DL (2.5-4.9) Magnesium Level 1.9 MG/DL (1.8-2.4) Total Bilirubin 0.6 MG/DL (0.2-1.0) Aspartate Amino Transf (AST/SGOT) 12 U/L (15-37) L Alanine Aminotransferase (ALT/SGPT) 13 U/L (12-78) Alkaline Phosphatase 49 U/L (46-116) Total Protein 6.1 G/DL (6.4-8.2) L Albumin 2.5 G/DL (3.4-5.0) L Globulin 3.6 g/dL Albumin/Globulin Ratio 0.7 (1.0-2.7) L Test 01/10/20 05:34 POC Whole Blood Glucose 104 MG/DL (74-106) Objective HEAD AND NECK: No JVD. LUNGS: Coarse rhonchi. CARDIOVASCULAR: Regular S1 and S2 No G/R/M ABDOMEN: Soft. EXTREMITIES: Bilateral arm edema. Cameron Davies MD Jan 10, 2020 10:12
--- NOTE | 2020-01-10 10:25 | NUR ---
NURSE NOTES: Dr Escobar made aware that pt Hgb today is 7.8, that pt will be DC, and just waiting for a bed at [facility].
--- NOTE | 2020-01-10 10:47 | Nephrology Progress Note ---
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 Respiratory distress most likely secondary to pulmonary edema and or COPD exacerbation. Hyponatremia. Obese. Hypothyroidism. Elevated d-dimer. Elevated liver enzymes Plan January 09: Labs reviewed. Carbon dioxide up to 40. Stop IV. Check ABG. Continue per consultants. January 08: No can panel today. Renal parameters stable. Will check labs tomorrow. Continue per consultants. January 07: No labs drawn today. Stable from renal standpoint of view January 06: Renal parameters stable. Subtherapeutic Depakote level. Continue per consultants. January 05: Stable from renal standpoint of view. Check iron panel ferritin and Depakote level today. Start 50 cc an hour D5W for rising serum sodium. January 04: No can panel done today. Renal parameters overall stable. Will check labs tomorrow. Discharge planning in process. Discussed with RN. January 03: Can panel reviewed. Renal parameters stable. Continue per consultants. Discharge planning in process. January 02: No labs done today. Stable from renal standpoint of view. January 01: Lab reviewed. Renal parameters stable. December 31: Lab reviewed. No new labs today. Renal parameters stable. Continue her consultants. December 30: Lab reviewed. Renal parameters stable. On 1 L oxygen with cannula. Patient agitated periodically. Due transfer to [facility]. December 29: Lab reviewed. Renal parameters stable. Now on Venturi mask. CO2 lower to 35. December 28: Lab reviewed: CO2 remains high: On BiPAP. Continue per pulmonary. Stable from renal standpoint of view. December 27: Lab reviewed. Continues to retain CO2. On Venturi mask. Continue per pulmonary. Stable from renal standpoint of view. December 26: Lab reviewed. ABG reviewed. Patient retaining CO2. Remains on BiPAP. Continue per pulmonary. Stable from renal standpoint of view. December 25: Lab reviewed. TSH remains high. On nonrebreathing mask. Renal parameters stable. Synthroid dose increased. IV fluids stopped. December 24: Lab reviewed. Still on BiPAP. Renal parameters stable. December 23: Lab reviewed. Remains on BiPAP. Agitated at times. ABG ordered. Serum sodium improved. December 22: Lab reviewed. On BiPAP. Stable from renal standpoint of view. Will follow serum sodium. December 21: Labs reviewed. On nonrebreather mask. D5W 50 cc an hour started for hypernatremia. Magnesium supplement given. Continue per consultants. December 20: Patient on weaning trial. No labs done today. Discussed with RN. Continue per consultants. December 19: Patient remains intubated. Renal parameters stable. Discussed with RN. Continue per consultants. December 18: Patient self extubated yesterday however was reintubated. Remains stable from renal standpoint of view. Discussed with RN. Discussed with Dr. Myers. December 17: Remains intubated. Remains full code. Failed weaning. Stable from renal standpoint of view. Continue per consultants. Discussed with DARREL [place]. December 16: Remains intubated. Full code. Weaning in process. Stable from renal standpoint of view. December 15: Remains vented. Electrolytes improved. Continue per consultants. December 14: Patient remains in ICU intubated on ventilator. Potassium low. Phosphorus low. Supplements given. Renal parameters are stable. Continue per consultants. December 13: Patient remains in ICU intubated on ventilator. Discussed with RN. Labs reviewed. Creatinine 1.3. Potassium supplements given. Mag sulfate IV 2 g given. Continue per consultants. December 12: Patient in ICU. Intubated on ventilator. Discussed with RN. Labs reviewed. Potassium supplement given. Continue per consultants. Arterial blood gas indicative of CO2 retention. Patient on the way to ICU for intubation. Continue per pulmonary management. Pulmonary support, Check 2D echocardiogram. Previous 2D echo had a 50% ejection fraction. Keep blood sugar and blood pressure in check. Thyroid panel. Monitor electrolytes and renal parameters. Afterload reduction. Diuretics Monitor serum calcium, supplements via NG tube. Per orders. Subjective ROS Limited/Unobtainable: No Constitutional: Reports: malaise Objective Objective Last 24 Hour Vital Signs Date Time Temp Pulse Resp B/P (MAP) Pulse Ox O2 Delivery O2 Flow Rate FiO2 01/10/20 08:16 95 Nasal Cannula 2.0 28 01/10/20 08:00 96.8 77 18 132/58 (82) 98 01/10/20 08:00 2.0 01/10/20 08:00 72 7/30/20 07:58 75 18 95 Nasal Cannula 2.0 28 73 18 93 01/10/20 04:00 2.0 01/10/20 04:00 79 01/10/20 04:00 97.9 74 19 130/37 (68) 92 01/10/20 01:42 82 20 98 Nasal Cannula 2.0 28 80 20 95 01/10/20 00:00 79 01/10/20 00:00 2.0 01/10/20 00:00 96.8 82 18 127/41 (69) 96 01/09/20 21:00 Nasal Cannula 2.0 01/09/20 20:00 98.1 78 18 121/38 (65) 96 01/09/20 20:00 80 01/09/20 20:00 2.0 01/09/20 19:39 88 20 99 Nasal Cannula 2.0 28 83 20 98 01/09/20 19:39 100 Nasal Cannula 2.0 28 01/09/20 16:00 77 01/09/20 16:00 2.0 01/09/20 16:00 97.7 72 24 112/36 (61) 97 01/09/20 13:23 76 20 99 Nasal Cannula 3.0 32 76 20 94 01/09/20 12:00 2.0 01/09/20 12:00 97.5 68 26 107/33 (57) 95 01/09/20 12:00 73 Intake and Output 01/09/20 01/10/20 19:00 07:00 Intake Total 472 ml 550 ml Balance 472 ml 550 ml Intake Oral 472 ml IV Total 550 ml # Voids 1 2 Current Medications Medications (Trade) Dose Ordered Sig/Angie Route PRN Reason Start Time Stop Time Status Last Admin Dose Admin Acetaminophen (Tylenol) 650 mg Q6H PRN ORAL Mild Pain (Pain Scale 1-3) 01/08/20 10:00 01/31/20 13:59 Acetaminophen (Tylenol) 1,000 mg Q6H PRN ORAL Moderate Pain (Pain Scale 4-6) 01/08/20 10:00 01/31/20 13:59 Amantadine HCl (Symmetrel) 100 mg TWICE A DAY ORAL 01/08/20 09:00 01/11/20 08:59 01/10/20 09:16 Aspirin (ASA) 325 mg DAILY ORAL 01/09/20 09:00 9/5/20 08:59 01/10/20 09:16 Atorvastatin Calcium (Lipitor) 10 mg BEDTIME ORAL 01/08/20 21:00 03/11/20 20:59 01/09/20 20:37 Clonidine HCl (Catapres Tab) 0.1 mg Q6H PRN ORAL For high BP over 160 systolic 01/08/20 10:00 03/11/20 12:30 Dextrose 1,000 ml @ 50 mls/hr Q20H IV 01/07/20 22:30 02/05/20 11:29 01/10/20 06:35 Dextrose (Dextrose 50%) 25 ml Q30M PRN IV Hypoglycemia 01/07/20 22:45 03/12/20 07:14 Dextrose (Dextrose 50%) 50 ml Q30M PRN IV Hypoglycemia 01/07/20 22:45 03/12/20 07:14 Divalproex Sodium (Depakote Sprinkles) 250 mg Q12HR ORAL 01/08/20 21:00 02/22/20 20:59 01/10/20 09:16 Docusate Sodium (Colace) 100 mg TWICE A DAY ORAL 01/08/20 09:00 02/06/20 08:59 01/10/20 09:15 Ipratropium [place] (Atrovent) 500 mcg Q6HRT HHN 01/08/20 01:00 01/11/20 12:59 01/10/20 07:48 Lactulose (Cephulac) 20 gm BID ORAL 01/08/20 18:00 02/07/20 17:59 01/09/20 17:36 Lansoprazole (Prevacid) 30 mg BIAC ORAL 01/08/20 16:30 02/07/20 16:29 01/10/20 06:08 Levothyroxine Sodium (Synthroid) 150 mcg DAILY@0630 ORAL 01/11/20 06:30 02/07/20 06:29 Nitroglycerin (Ntg) 0.4 mg Q5MIN X 3 DOSES PRN SL CHEST PAIN 01/07/20 22:30 01/10/20 21:44 Olanzapine (ZyPREXA) 5 mg BID ORAL 01/10/20 09:00 02/24/20 08:59 01/10/20 09:16 Pantoprazole (Protonix) 40 mg EVERY 12 HOURS ORAL 01/08/20 09:00 02/05/20 20:59 01/10/20 09:15 Polyethylene Glycol (Miralax) 17 gm BEDTIME ORAL 01/08/20 21:00 01/18/20 20:59 01/09/20 20:38 Polyethylene Glycol (Miralax) 17 gm DAILYPRN PRN ORAL Constipation 01/08/20 19:00 01/23/20 18:59 Laboratory Tests 01/09/20 12:11: POC Whole Blood Glucose 101 01/09/20 17:39: POC Whole Blood Glucose 138H 01/10/20 00:08: POC Whole Blood Glucose 89 01/10/20 05:20: White Blood Count 4.7L, Red Blood Count 2.45L, Hemoglobin 7.8L, Hematocrit 24.5L , Mean Corpuscular Volume 100H, Mean Corpuscular Hemoglobin 31.7H, Mean Corpuscular Hemoglobin Concent 31.7L, Red Cell Distribution Width 13.4, Platelet Count 112L, Mean Platelet Volume 7.0, Neutrophils (%) (Auto) , Lymphocytes (%) (Auto) , Monocytes (%) (Auto) , Eosinophils (%) (Auto) , Basophils (%) (Auto) , Differential Total Cells Counted 100, Neutrophils % ( Manual) 70, Lymphocytes % (Manual) 25, Monocytes % (Manual) 5, Eosinophils % ( Manual) 0, Basophils % (Manual) 0, Band Neutrophils 0, Platelet Estimate DecreasedL, Platelet Morphology Normal, Hypochromasia 1+, Macrocytosis 1+, Sodium Level 140, Potassium Level 3.8, Chloride Level 101, Carbon Dioxide Level 41*H, Blood Urea Nitrogen 29H, Creatinine 1.3, Estimat Glomerular Filtration Rate 39.4, Glucose Level 95, Calcium Level 8.0L, Phosphorus Level 2.6, Magnesium Level 1.9, Total Bilirubin 0.6, Aspartate Amino Transf (AST/SGOT) 12L , Alanine Aminotransferase (ALT/SGPT) 13, Alkaline Phosphatase 49, Total Protein 6.1L, Albumin 2.5L, Globulin 3.6, Albumin/Globulin Ratio 0.7L 01/10/20 05:34: POC Whole Blood Glucose 104 Height (Feet): 5 Height (Inches): 7.00 Weight (Pounds): 230 General Appearance: no apparent distress, lethargic Cardiovascular: normal rate Respiratory/Chest: decreased breath sounds Abdomen: distended Bryan Ochoa MD Jan 10, 2020 10:47
--- NOTE | 2020-01-10 11:01 | NUR ---
SWALLOW STATUS/DYSPHAGIA MANAGEMENT PATIENT CLEARED FOR ST INTERVENTION BY DARREL SUTHERLAND. PATIENT RECEIVED ALERT, COOPERATIVE, SITTING UPRIGHT IN BED. HER 02 SATURATION WAS 94 WITH 2 LIT VIA NC. 28%FIO2. Procedure: XRAY Chest 1v Procedure: XRAY Chest 1v Reason for study: Reason For Exam: SOB Comparison films: 12/30/2019. FINDINGS: A single one view chest is obtained. Vascularity is normal. Basilar densities noted likely mild atelectasis. Cardiomegaly and tortuous aorta unchanged. No large effusion seen. The bony thorax appear unremarkable. IMPRESSION: Basilar atelectasis. PATIENT TOLERATING CURRENT DIET. CXR POSITIVE FOR BASILAR ATELECTASIS. SHE REFUSED MOST OF HER MORNING MEAL, OTHERWISE, P.O. HAS BEEN SUFFICIENT TO SUPPORT NUTRITION/HYDRATION NEEDS. ON THE SLUMS ([facility] MENTAL SCALE) THE PATIENT WAS NOT ABLE TO PARTICIPATE IN FORMAL COGNITIVE ASSESSMENT TASKS. FOR EXAMPLE, SHE WAS UNABLE TO DRAW A CLOCK WITH MAX CUEING. HER COGNITIVE SKILLS REFLECT MOD/SEVERE COGNITIVE DECLINE WHICH IS A PRIMARY BARRIER RELATIVE TO SAFE P.O. INTAKE. SHE IS DEPENDENT ON STAFF FOR ALL OF HER MEDICAL CARE AND ESPECIALLY AT MEALTIMES. REVIEWED MEALTIME PROTOCOL WITH ALEKSANDR ESPINAL AND DARREL RE: STOP FEEDING PATIENT WHEN SHE BECOMES SHORT OF BREATH. D/C PENDING TO [facility].
--- NOTE | 2020-01-10 11:50 | NUR ---
DISCHARGE DISPOSITION: PLEASE READ PATIENT TO BE DISCHARGED TO [facility] [address] T: [phone]>> CALL FOR REPORT [facility] @ [address] [place] [address] AND 104KG MESSAGE LEFT FOR SENIOR DEPUTY MEETA [phone] NURSING MADE AWARE OF PENDING DC [facility] REQUESTED DC AFTER 1900 tRANSFER REPORT TO BE DELIVERED
[2020-01-10 12:00] VITALS: BP 120/64
--- NOTE | 2020-01-10 12:12 | Hematology/Onc Progress Note ---
Assessment/Plan Assessment/Plan # Lower extremity edema in setting of elevated ddimer --> lower ext duplex ordered to r/o dvt-->neg for dvt --> lovenox sq has been started --> low threshold for v/q or cta r/o pe # Pancytopenia is likely due to muelosuppresion from meds v other cause, viral --> hgb 11-->10.-->9->11.9-->10.8->7.8->11->10.8->10.2-->9.6->9.5->10.8-->12--> 10->10.3->11>9.3>7.7 --> no e/o hemolysis --> no bleeding reported --> smear reviewed --> no go bleeding --> asa to continue --> plt trend 112 # Leukocytosis r/o infection, likely steriods related --> wbc trend 10==>12-->14->15-->12-->14>6.2-->4.7 --> steriods off --> abx off # Respiratory failure with copd exacerbation likely --> pulm toilet --> breathing rx --> steroids prn basis --> pulm eval ---> ABX per is on zosyn->now off # 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 ( combination of moderate aortic regurgitation and severe mitral regurgitation) --> diuresis as per shannan --> lasix last time # Severe ascending aortic dilatation --> per Dr Keke campbell # Hypertension # Parkinson disease # Hyperlipidemia # Hypothyroidism # Dementia # Obesity # Schizophrenia --> as per [facility] --> restraints # Dvt ppx lovenox sq/scd's Appreciate regulatory consultant care and alexei Rn Subjective Constitutional: Denies: no symptoms, chills, fever, malaise, weakness, other HEENT: Denies: no symptoms, eye pain, blurred vision, tearing, double vision, ear pain, ear discharge, nose pain, nose congestion, throat pain, throat swelling, mouth pain, mouth swelling, other Cardiovascular: Denies: no symptoms, chest pain, edema, irregular heart rate, lightheadedness, palpitations, syncope, other Respiratory: Denies: no symptoms, cough, shortness of breath, SOB with excertion, SOB at rest, sputum, wheezing, other Gastrointestinal/Abdominal: Denies: no symptoms, abdomen distended, abdominal pain, black stools, tarry stools, blood in stool, constipated, diarrhea, difficulty swallowing, nausea, poor appetite, poor fluid intake, rectal bleeding , vomiting, other Genitourinary: Denies: no symptoms, burning, discharge, frequency, flank pain, hematuria, incontinence, pain, urgency, other Neurologic/Psychiatric: Denies: no symptoms, anxiety, depressed, emotional problems, headache, numbness, paresthesia, pre-existing deficit, seizure, tingling, tremors, weakness, other Endocrine: Denies: no symptoms, excessive sweating, flushing, intolerance to cold, intolerance to heat, increased hunger, increased thirst, increased urine, unexplained weight gain, unexplained weight loss, other Hematologic/Lymphatic: Denies: no symptoms, anemia, easy bleeding, easy bruising, adenopathy, other Allergies: Coded Allergies: LITHIUM (Verified Allergy, Unknown, 02/07/19) Subjective 12/12 labs are reviewed, intubated, with og, somewhat responsive, dw rn 12/13 labs noted, hgb 7.8, tfs ok to start per gi 12/15 icu, restraints, no acute events, hep panel negative, sedated 12/16 no bleeding, in the icu, on abx, in restarints, sleepy, vent 12/17 is on vent, also is on abx, awake, with ogt 12/18 ng placed, hgb 9.6, no bleeding, no night sweats 12/19 labs reviewed, sedated, on vent, nob leeding, meds reviewed 12/20 remains on vent, audra bleeding, meds reviewed, no night sweats 12/22 hgb 9.5, to get zosyn x 1 more day, no night sweats meds reviewed 12/23 labs noted, no bleeding, with fm, no bleeding or night sweats 12/24 no bleeding, labs noted, no night sweats hgb 10, no hemolysis 12/25 remains fatigued, fm, labs are still pending from am 12/26 restraints, v mask, cxr reviewed 12/27 labs reviewed, no bleeding, hgb 10.8, no hemolysis on FM 12/29 remains disoriented on bipap and fm as needed, hgb better 12/30 wbc 15k, no bleeding, dw rn, no night sweats off abx 12/31 wbc remains elevated, arousable, no bleeding, on fm 01/01 meds noted, labs reviewed, no bleeding on exam 01/02 refusing labs this am, no bleeding, meds noted, no hemolysis 01/03 no bleeding, meds noted, no night sweats, cbc pend 01/04 labs noted, no bleeding, cbc has been ordered for am, seen by gi, renal 01/05 asleep, labs noted, meds revoewed.no bleeding 01/06 pending placement, no night sweats, meds have been reviewed 01/07 labs are reviewed, no bleeding, hgb 9.3, no hemolysis seen 01/08 no bleeding or chills, labs are noted, no night sweats 01/09 remains confused, labs noted, no bleeding, plt 112k, for dc holden Objective Objective Current Medications Medications (Trade) Dose Ordered Sig/Angie Route PRN Reason Start Time Stop Time Status Last Admin Dose Admin Acetaminophen (Tylenol) 650 mg Q6H PRN ORAL Mild Pain (Pain Scale 1-3) 01/08/20 10:00 01/31/20 13:59 Acetaminophen (Tylenol) 1,000 mg Q6H PRN ORAL Moderate Pain (Pain Scale 4-6) 01/08/20 10:00 01/31/20 13:59 Amantadine HCl (Symmetrel) 100 mg TWICE A DAY ORAL 01/08/20 09:00 01/11/20 08:59 01/10/20 09:16 Aspirin (ASA) 325 mg DAILY ORAL 01/09/20 09:00 02/16/20 08:59 01/10/20 09:16 Atorvastatin Calcium (Lipitor) 10 mg BEDTIME ORAL 01/08/20 21:00 03/11/20 20:59 01/09/20 20:37 Clonidine HCl (Catapres Tab) 0.1 mg Q6H PRN ORAL For high BP over 160 systolic 01/08/20 10:00 03/11/20 12:30 Dextrose (Dextrose 50%) 25 ml Q30M PRN IV Hypoglycemia 01/07/20 22:45 03/12/20 07:14 Dextrose (Dextrose 50%) 50 ml Q30M PRN IV Hypoglycemia 01/07/20 22:45 03/12/20 07:14 Divalproex Sodium (Depakote Sprinkles) 250 mg Q12HR ORAL 01/08/20 21:00 02/22/20 20:59 01/10/20 09:16 Docusate Sodium (Colace) 100 mg TWICE A DAY ORAL 01/08/20 09:00 02/06/20 08:59 01/10/20 09:15 Ipratropium [place] (Atrovent) 500 mcg Q6HRT HHN 01/08/20 01:00 01/11/20 12:59 01/10/20 07:48 Lactulose (Cephulac) 20 gm BID ORAL 01/08/20 18:00 02/07/20 17:59 01/09/20 17:36 Lansoprazole (Prevacid) 30 mg BIAC ORAL 01/08/20 16:30 02/07/20 16:29 01/10/20 06:08 Levothyroxine Sodium (Synthroid) 150 mcg DAILY@0630 ORAL 01/11/20 06:30 02/07/20 06:29 Nitroglycerin (Ntg) 0.4 mg Q5MIN X 3 DOSES PRN SL CHEST PAIN 01/07/20 22:30 01/10/20 21:44 Olanzapine (ZyPREXA) 5 mg BID ORAL 01/10/20 09:00 02/24/20 08:59 01/10/20 09:16 Pantoprazole (Protonix) 40 mg EVERY 12 HOURS ORAL 01/08/20 09:00 02/05/20 20:59 01/10/20 09:15 Polyethylene Glycol (Miralax) 17 gm BEDTIME ORAL 01/08/20 21:00 01/18/20 20:59 01/09/20 20:38 Polyethylene Glycol (Miralax) 17 gm DAILYPRN PRN ORAL Constipation 01/08/20 19:00 01/23/20 18:59 Last 24 Hour Vital Signs Date Time Temp Pulse Resp B/P (MAP) Pulse Ox O2 Delivery O2 Flow Rate FiO2 01/10/20 09:00 Nasal Cannula 2.0 01/10/20 08:16 95 Nasal Cannula 2.0 28 01/10/20 08:00 96.8 77 18 132/58 (82) 98 01/10/20 08:00 2.0 01/10/20 08:00 72 01/10/20 07:58 75 18 95 Nasal Cannula 2.0 28 73 18 93 01/10/20 04:00 2.0 01/10/20 04:00 79 01/10/20 04:00 97.9 74 19 130/37 (68) 92 01/10/20 01:42 82 20 98 Nasal Cannula 2.0 28 80 20 95 01/10/20 00:00 79 01/10/20 00:00 2.0 01/10/20 00:00 96.8 82 18 127/41 (69) 96 01/09/20 21:00 Nasal Cannula 2.0 01/09/20 20:00 98.1 78 18 121/38 (65) 96 01/09/20 20:00 80 01/09/20 20:00 2.0 01/09/20 19:39 88 20 99 Nasal Cannula 2.0 28 83 20 98 01/09/20 19:39 100 Nasal Cannula 2.0 28 01/09/20 16:00 77 01/09/20 16:00 2.0 01/09/20 16:00 97.7 72 24 112/36 (61) 97 01/09/20 13:23 76 20 99 Nasal Cannula 3.0 32 76 20 94 01/09/20 12:00 2.0 01/09/20 12:00 97.5 68 26 107/33 (57) 95 01/09/20 12:00 73 01/09/20 08:00 97.7 75 22 136/38 (70) 95 01/09/20 08:00 80 01/09/20 08:00 2.0 01/09/20 06:54 71 20 98 Nasal Cannula 3.0 32 69 20 93 01/09/20 06:54 93 Nasal Cannula 3.0 32 01/09/20 04:00 83 01/09/20 04:00 2.0 01/09/20 04:00 96.6 76 19 120/44 (69) 95 01/09/20 00:12 77 20 100 Nasal Cannula 3.0 32 78 20 95 01/09/20 00:00 96.9 85 19 126/46 (72) 98 01/09/20 00:00 2.0 01/09/20 00:00 80 01/08/20 21:00 Nasal Cannula 2.0 01/08/20 20:00 87 01/08/20 20:00 2.0 01/08/20 20:00 97.7 75 20 119/49 (72) 95 01/08/20 19:58 96 Nasal Cannula 2.0 28 01/08/20 19:58 78 20 99 Nasal Cannula 3.0 32 75 20 96 01/08/20 16:00 2.0 01/08/20 16:00 97.5 72 24 108/32 (57) 98 01/08/20 16:00 75 01/08/20 14:08 73 20 100 Nasal Cannula 3.0 32 66 18 98 Intake and Output 01/09/20 01/10/20 19:00 07:00 Intake Total 472 ml 550 ml Balance 472 ml 550 ml Intake Oral 472 ml IV Total 550 ml # Voids 1 2 Labs Test 01/07/20 16:49 01/08/20 00:05 01/08/20 05:05 01/08/20 10:55 POC Whole Blood Glucose 95 MG/DL (74-106) 99 MG/DL (74-106) 95 MG/DL (74-106) 105 MG/DL (74-106) Test 01/08/20 16:01 01/09/20 07:50 01/09/20 12:11 01/09/20 17:39 POC Whole Blood Glucose 111 MG/DL (74-106) 101 MG/DL (74-106) 138 MG/DL (74-106) Thyroid Stimulating Hormone (TSH) 8.186 uiU/mL (0.358-3.740) Free Thyroxine 1.34 NG/DL (0.76-1.46) Test 01/10/20 00:08 01/10/20 05:20 01/10/20 05:34 01/10/20 10:50 POC Whole Blood Glucose 89 MG/DL (74-106) 104 MG/DL (74-106) White Blood Count 4.7 K/UL (4.8-10.8) Red Blood Count 2.45 M/UL (4.20-5.40) Hemoglobin 7.8 G/DL (12.0-16.0) Hematocrit 24.5 % (37.0-47.0) Mean Corpuscular Volume 100 FL (80-99) Mean Corpuscular Hemoglobin 31.7 PG (27.0-31.0) Mean Corpuscular Hemoglobin Concent 31.7 G/DL (32.0-36.0) Red Cell Distribution Width 13.4 % (11.6-14.8) Platelet Count 112 K/UL (150-450) Mean Platelet Volume 7.0 FL (6.5-10.1) Neutrophils (%) (Auto) % (45.0-75.0) Lymphocytes (%) (Auto) % (20.0-45.0) Monocytes (%) (Auto) % (1.0-10.0) Eosinophils (%) (Auto) % (0.0-3.0) Basophils (%) (Auto) % (0.0-2.0) Differential Total Cells Counted 100 Neutrophils % (Manual) 70 % (45-75) Lymphocytes % (Manual) 25 % (20-45) Monocytes % (Manual) 5 % (1-10) Eosinophils % (Manual) 0 % (0-3) Basophils % (Manual) 0 % (0-2) Band Neutrophils 0 % (0-8) Platelet Estimate Decreased Platelet Morphology Normal Hypochromasia 1+ Macrocytosis 1+ Sodium Level 140 MMOL/L (136-145) Potassium Level 3.8 MMOL/L (3.5-5.1) Chloride Level 101 MMOL/L (98-107) Carbon Dioxide Level 41 MMOL/L (21-32) Blood Urea Nitrogen 29 mg/dL (7-18) Creatinine 1.3 MG/DL (0.55-1.30) Estimat Glomerular Filtration Rate 39.4 mL/min (>60) Glucose Level 95 MG/DL (74-106) Calcium Level 8.0 MG/DL (8.5-10.1) Phosphorus Level 2.6 MG/DL (2.5-4.9) Magnesium Level 1.9 MG/DL (1.8-2.4) Total Bilirubin 0.6 MG/DL (0.2-1.0) Aspartate Amino Transf (AST/SGOT) 12 U/L (15-37) Alanine Aminotransferase (ALT/SGPT) 13 U/L (12-78) Alkaline Phosphatase 49 U/L (46-116) Total Protein 6.1 G/DL (6.4-8.2) Albumin 2.5 G/DL (3.4-5.0) Globulin 3.6 g/dL Albumin/Globulin Ratio 0.7 (1.0-2.7) Arterial Blood pH 7.456 (7.350-7.450) Arterial Blood Partial Pressure CO2 47.2 mmHg (35.0-45.0) Arterial Blood Partial Pressure O2 92.7 mmHg (75.0-100.0) Arterial Blood HCO3 32.5 mmol/L (22.0-26.0) Arterial Blood Oxygen Saturation 96.7 % (95-100) Arterial Blood Base Excess 7.8 (-2-2) [place] Test Positive Test 01/10/20 11:02 POC Whole Blood Glucose 104 MG/DL (74-106) Height (Feet): 5 Height (Inches): 7.00 Weight (Pounds): 230 Objective Vitals: reviewed General: NAD HEENT: nc, at ++ngt, facemask+ Neck: supple Chest: decreased breath sounds bilaterally Cardiovascular: RRR, no s3, s4 Abdomen: soft, nontender, nd Extremities: 1-2 + edema, scd's Neuro: nonverbal : iman+ Frank Escobar MD Jan 10, 2020 12:12
--- NOTE | 2020-01-10 13:00 | NUR ---
HAND-OFF: Report given to Licha RN. Pt in bed resting, no signs of respiratory distress noted, vital signs stable, reports 0/10 pain. Pt likes to get out of bed and unable to bear weight, fall precautions in place. HOB raised, bed locked and in lowest position, bed alarm placed, call light within reach. Endorsed plan of care.
--- NOTE | 2020-01-10 13:24 | NUR ---
RESPIRATORY NOTE: Pt received on nasal cannula 2LPM. SpO2 96%. B/S bilateral diminished, nonproductive cough. No respiratory distress noted at this time. Will continue to monitor.
--- NOTE | 2020-01-10 13:29 | NUR ---
NURSE NOTES: Received patient in bed asleep. O2 via NC intact, no SOB or acute distress. IV line intact and patent. HOB elevated. Bed locked in lowest position. Call light within reach. Will continue plan of care.
--- NOTE | 2020-01-10 15:41 | NUR ---
NURSE NOTES: Patient for discharge today to [facility] at 7:30PM, report given to Charge Nurse Bennett.
[2020-01-10 16:00] VITALS: BP 128/59
--- NOTE | 2020-01-10 16:06 | NUR ---
NURSE NOTES: Patient with [address] Perera and Dr Davies made aware, awaiting response. Addendum: 01/10/20 at 1815 by Licha Ho RN No new orders from Dr Davies.
--- NOTE | 2020-01-10 19:22 | NUR ---
HAND-OFF: Report given to Ayaka ROJO.
--- NOTE | 2020-01-10 19:30 | NUR ---
NURSE NOTES: Received report from Rowena Hylton RN. Pt in stable condition, SR, no signs or symptoms of distress noted at this time. Pt repositioned, tolerated well. Pt bed at lowest position, bed alarm armed, call light within reach. Pt instructed to use call light if assistance is needed, pt non-verbal. Will continue to monitor closely.
--- NOTE | 2020-01-10 20:30 | NUR ---
NURSE NOTES: [facility] given report for DC. Pt in stable condition, R hand 22g saline locked; intact, patent, and asymptomatic. VS WNL. DC packet given automation driver.
--- NOTE | 2020-01-10 21:54 | General Progress Note ---
Assessment/Plan Problem List: (1) Dyspnea ICD Codes: R06.00 - Dyspnea, unspecified SNOMED: 608273930 (2) Hypothyroidism ICD Codes: E03.9 - Hypothyroidism, unspecified SNOMED: 63869002 (3) Obese ICD Codes: E66.9 - Obesity, unspecified SNOMED: 559101699, 567582215 (4) Psychosis ICD Codes: F29 - Unspecified psychosis not due to a substance or known physiological condition SNOMED: 33119426 (5) Respiratory failure ICD Codes: J96.90 - Respiratory failure, unspecified, unspecified whether with hypoxia or hypercapnia SNOMED: 077072474 (6) Respiratory distress ICD Codes: R06.03 - Acute respiratory distress SNOMED: 066083098 (7) Dyspnea ICD Codes: R06.00 - Dyspnea, unspecified SNOMED: 107806043 (8) Pneumonia ICD Codes: J18.9 - Pneumonia, unspecified organism SNOMED: 062999316 (9) Acute and chronic respiratory failure ICD Codes: J96.20 - Acute and chronic respiratory failure, unspecified whether with hypoxia or hypercapnia SNOMED: 89776457 (10) Diabetes mellitus type 2 in nonobese ICD Codes: E11.9 - Type 2 diabetes mellitus without complications SNOMED: 628536379 (11) CHF (congestive heart failure) ICD Codes: I50.9 - Heart failure, unspecified SNOMED: 39345816 Qualifiers: Qualified Codes: I50.9 - Heart failure, unspecified (12) Hypoxia ICD Codes: R09.02 - Hypoxemia SNOMED: 834894908 (13) Elevated d-dimer ICD Codes: R79.89 - Other specified abnormal findings of blood chemistry SNOMED: 198554210 (14) Schizophrenia ICD Codes: F20.9 - Schizophrenia, unspecified SNOMED: 67374858 (15) Parkinson disease ICD Codes: G20 - Parkinson's disease SNOMED: 40540895 Status: progressing, unchanged Assessment/Plan: vitals stable no acute events chf elevated co2 due to metabolic contraction afebrile resp insuff copd Subjective ROS Limited/Unobtainable: Yes Allergies: Coded Allergies: LITHIUM (Verified Allergy, Unknown, 02/07/19) Objective Last 24 Hour Vital Signs Date Time Temp Pulse Resp B/P (MAP) Pulse Ox O2 Delivery O2 Flow Rate FiO2 01/10/20 20:00 78 01/10/20 19:34 75 18 100 Nasal Cannula 2.0 28 01/10/20 19:24 95 Nasal Cannula 2.0 28 01/10/20 19:24 74 18 95 Nasal Cannula 2.0 28 01/10/20 16:00 79 01/10/20 16:00 2.0 01/10/20 16:00 98.1 66 20 128/59 (82) 97 01/10/20 13:07 86 20 97 Nasal Cannula 2.0 28 83 18 96 01/10/20 12:00 97.7 75 19 120/64 (82) 96 01/10/20 12:00 2.0 01/10/20 11:27 68 01/10/20 09:00 Nasal Cannula 2.0 01/10/20 08:16 95 Nasal Cannula 2.0 28 01/10/20 08:00 96.8 77 18 132/58 (82) 98 01/10/20 08:00 2.0 01/10/20 08:00 72 01/10/20 07:58 75 18 95 Nasal Cannula 2.0 28 73 18 93 01/10/20 04:00 2.0 01/10/20 04:00 79 01/10/20 04:00 97.9 74 19 130/37 (68) 92 01/10/20 01:42 82 20 98 Nasal Cannula 2.0 28 80 20 95 01/10/20 00:00 79 01/10/20 00:00 2.0 01/10/20 00:00 96.8 82 18 127/41 (69) 96 Intake and Output 01/09/20 01/10/20 19:00 07:00 Intake Total 472 ml 550 ml Balance 472 ml 550 ml Intake Oral 472 ml IV Total 550 ml # Voids 1 2 Laboratory Tests 01/10/20 00:08: POC Whole Blood Glucose 89 01/10/20 05:20: White Blood Count 4.7L, Red Blood Count 2.45L, Hemoglobin 7.8L, Hematocrit 24.5L , Mean Corpuscular Volume 100H, Mean Corpuscular Hemoglobin 31.7H, Mean Corpuscular Hemoglobin Concent 31.7L, Red Cell Distribution Width 13.4, Platelet Count 112L, Mean Platelet Volume 7.0, Neutrophils (%) (Auto) , Lymphocytes (%) (Auto) , Monocytes (%) (Auto) , Eosinophils (%) (Auto) , Basophils (%) (Auto) , Differential Total Cells Counted 100, Neutrophils % ( Manual) 70, Lymphocytes % (Manual) 25, Monocytes % (Manual) 5, Eosinophils % ( Manual) 0, Basophils % (Manual) 0, Band Neutrophils 0, Platelet Estimate DecreasedL, Platelet Morphology Normal, Hypochromasia 1+, Macrocytosis 1+, Sodium Level 140, Potassium Level 3.8, Chloride Level 101, Carbon Dioxide Level 41*H, Blood Urea Nitrogen 29H, Creatinine 1.3, Estimat Glomerular Filtration Rate 39.4, Glucose Level 95, Calcium Level 8.0L, Phosphorus Level 2.6, Magnesium Level 1.9, Total Bilirubin 0.6, Aspartate Amino Transf (AST/SGOT) 12L , Alanine Aminotransferase (ALT/SGPT) 13, Alkaline Phosphatase 49, Total Protein 6.1L, Albumin 2.5L, Globulin 3.6, Albumin/Globulin Ratio 0.7L 01/10/20 05:34: POC Whole Blood Glucose 104 01/10/20 10:50: Arterial Blood pH 7.456H, Arterial Blood Partial Pressure CO2 47.2H, Arterial Blood Partial Pressure O2 92.7, Arterial Blood HCO3 32.5H, Arterial Blood Oxygen Saturation 96.7, Arterial Blood Base Excess 7.8H, Raphael Test Positive 01/10/20 11:02: POC Whole Blood Glucose 104 01/10/20 19:05: POC Whole Blood Glucose 113H Height (Feet): 5 Height (Inches): 7.00 Weight (Pounds): 230 Dani Perera MD Jan 10, 2020 21:54
--- NOTE | 2020-01-10 23:18 | Psych Consult Progress Note ---
Psychiatry Progress Note Psychiatry Progress Note Medications Current Medications Medications (Trade) Dose Ordered Sig/Angie Route PRN Reason Start Time Stop Time Status Last Admin Dose Admin Acetaminophen (Tylenol) 650 mg Q6H PRN ORAL Mild Pain (Pain Scale 1-3) 01/08/20 10:00 01/31/20 13:59 Acetaminophen (Tylenol) 1,000 mg Q6H PRN ORAL Moderate Pain (Pain Scale 4-6) 01/08/20 10:00 01/31/20 13:59 Amantadine HCl (Symmetrel) 100 mg TWICE A DAY ORAL 01/08/20 09:00 01/11/20 08:59 01/10/20 17:17 Aspirin (ASA) 325 mg DAILY ORAL 01/09/20 09:00 02/16/20 08:59 01/10/20 09:16 Atorvastatin Calcium (Lipitor) 10 mg BEDTIME ORAL 01/08/20 21:00 03/11/20 20:59 01/09/20 20:37 Clonidine HCl (Catapres Tab) 0.1 mg Q6H PRN ORAL For high BP over 160 systolic 01/08/20 10:00 03/11/20 12:30 Dextrose (Dextrose 50%) 25 ml Q30M PRN IV Hypoglycemia 01/07/20 22:45 03/12/20 07:14 Dextrose (Dextrose 50%) 50 ml Q30M PRN IV Hypoglycemia 01/07/20 22:45 03/12/20 07:14 Divalproex Sodium (Depakote Sprinkles) 250 mg Q12HR ORAL 01/08/20 21:00 02/22/20 20:59 01/10/20 09:16 Docusate Sodium (Colace) 100 mg TWICE A DAY ORAL 01/08/20 09:00 02/06/20 08:59 01/10/20 17:16 Ipratropium [place] (Atrovent) 500 mcg Q6HRT HHN 01/08/20 01:00 01/11/20 12:59 01/10/20 19:24 Lactulose (Cephulac) 20 gm BID ORAL 01/08/20 18:00 02/07/20 17:59 01/09/20 17:36 Lansoprazole (Prevacid) 30 mg BIAC ORAL 01/08/20 16:30 02/07/20 16:29 01/10/20 17:17 Levothyroxine Sodium (Synthroid) 150 mcg DAILY@0630 ORAL 01/11/20 06:30 02/07/20 06:29 Olanzapine (ZyPREXA) 5 mg BID ORAL 01/10/20 09:00 02/24/20 08:59 01/10/20 17:16 Pantoprazole (Protonix) 40 mg EVERY 12 HOURS ORAL 01/08/20 09:00 02/05/20 20:59 01/10/20 09:15 Polyethylene Glycol (Miralax) 17 gm BEDTIME ORAL 01/08/20 21:00 01/18/20 20:59 01/09/20 20:38 Polyethylene Glycol (Miralax) 17 gm DAILYPRN PRN ORAL Constipation 01/08/20 19:00 01/23/20 18:59 Neurological/Psychiatric: Reports: anxiety, depressed Allergies: Coded Allergies: LITHIUM (Verified Allergy, Unknown, 02/07/19) Objective Data Height (Feet): 5 Height (Inches): 7.00 Weight (Pounds): 230 General Appearance: alert, confused Additional Comments: Episodes of agitation. Mood is anxious. Affect is flat. Thought process, there is a paucity of thought content. Thought content, no suicidal or homicidal ideation. Cognition is impaired. Insight and judgment are impaired. Assessment/Plan Status: progressing, unchanged Kiana Hernandez MD Jan 10, 2020 23:18
[2020-01-11] MEDS ORDERED: NS 275ml ONE (07:00)
--- NOTE | 2020-01-11 23:18 | Psych Consult Progress Note ---
Psychiatry Progress Note Psychiatry Progress Note Allergies: Coded Allergies: LITHIUM (Verified Allergy, Unknown, 02/07/19) Objective Data Height (Feet): 5 Height (Inches): 7.00 Weight (Pounds): 230 Assessment/Plan Status: progressing, unchanged Kiana Hernandez MD Jan 11, 2020 23:18
== END 2020-01-10 21:40 | DRG 207 ==
LOC: EDBD 13:29 → EMR 14:15 → 2W 14:28 → EDBEDREQSVC 18:04 → EDBEDREQ 18:13 → ICU 12-12 09:04 → 2W 12-31 21:00 → 2E 01-07 22:26
PROC: 0BH17EZ Insertion of Endotracheal Airway into Trachea, Via Natural or Artificial Opening (ICD-10-PCS; principal; 2019-12-12)
PROC: 5A1955Z Respiratory Ventilation, Greater than 96 Consecutive Hours (ICD-10-PCS; principal; 2019-12-12)
DX: J96.21 Acute and chronic respiratory failure with hypoxia (principal); J18.9 Pneumonia, unspecified organism; A41.9 Sepsis, unspecified organism; J44.1 Chronic obstructive pulmonary disease with (acute) exacerbation; E87.1 Hypo-osmolality and hyponatremia; G93.40 Encephalopathy, unspecified; J44.0 Chronic obstructive pulmonary disease with (acute) lower respiratory infection; E87.3 Alkalosis; D61.818 Other pancytopenia; I42.9 Cardiomyopathy, unspecified; E87.0 Hyperosmolality and hypernatremia; I11.0 Hypertensive heart disease with heart failure; I50.9 Heart failure, unspecified; F25.9 Schizoaffective disorder, unspecified; J96.22 Acute and chronic respiratory failure with hypercapnia; G20 Parkinson's disease; F02.80 Dementia in other diseases classified elsewhere, unspecified severity, without behavioral disturbance, psychotic disturbance, mood disturbance, and anxiety; E11.9 Type 2 diabetes mellitus without complications; I34.0 Nonrheumatic mitral (valve) insufficiency; I35.1 Nonrheumatic aortic (valve) insufficiency; E78.5 Hyperlipidemia, unspecified; E03.9 Hypothyroidism, unspecified; E66.9 Obesity, unspecified; Z68.36 Body mass index [BMI] 36.0-36.9, adult; D64.9 Anemia, unspecified; G47.33 Obstructive sleep apnea (adult) (pediatric); R13.10 Dysphagia, unspecified; E87.6 Hypokalemia; R00.1 Bradycardia, unspecified; Z20.828 Contact with and (suspected) exposure to other viral communicable diseases; Z22.322 Carrier or suspected carrier of Methicillin resistant Staphylococcus aureus; E83.51 Hypocalcemia
CPT/HCPCS: 31500; 36415; 36600; 71045; 74018; 76700; 80048; 80053; 80061; 80076; 80164; 80202; 81003; 82140; 82248; 82607; 82728; 82746; 82803; 82962; 82977; 83036; 83540; 83550; 83605; 83615; 83735; 83880; 84100; 84439; 84443; 84478; 84484; 84550; 85007; 85025; 85379; 85610; 85730; 86140; 86705; 86709; 86803; 87040; 87070; 87081; 87205; 87340; 93005; 93306; 93970; 94002; 94003; 94640; 94660; 96365; 96368; 96375; 99291; C9399; J1815; J7030; J8499

== ENCOUNTER 2020-05-11 16:02 | Inpatient (IN) | payer MEDICARE, MEDICAID ==
[~2020-05-11] VITALS: Ht 160 cm; Wt 83.0 kg
[~2020-05-11 16:02] MED LIST changes: +ACETAMINOPHEN500 M3 ORAL; +CRANBERRY CONC1 EAC1 PO; +DEPAKOTE250 MG ORAL; +FAMOTIDINE40 MG/5 ML PO; +FUROSEMIDE40 MG ORAL; +FUROSEMIDE40 MG/5 ML ORAL; +HALDOL DEC50 MG/1 ML IM; +HEPARIN SO5000 UNIT2 SUBQ; +LACTULOSE20 GM/301 NG; +PREDNISONE5 M3 PO; +SEROQUEL25 MG NG; +VITAMIN D325 GM MC; +VITAMIN D325 MCG PO
[2020-05-11 16:07] VITALS: BP 133/69
[2020-05-11] MEDS ORDERED: Azithromycin 500 MG in NS 275 ML IVPB ONE (16:15)
[2020-05-11] MEDS ORDERED: dexAMETHasone 10mg/ml Inj IV ONE (16:15)
[2020-05-11] MEDS ORDERED: cefTRIAXone 1 GM in NS 55 ML IV ONE (16:15)
[2020-05-11] MEDS ORDERED: LORazepam Inj 2mg/ml 1ml IV ONE (16:15)
[2020-05-11] MEDS ORDERED: Nitroglycerin 2% oint pkt TOPIC ONE (16:15)
[2020-05-11] MEDS ORDERED: IPRATROPIU0.2 MG/1 M HHN (16:19)
[2020-05-11] MEDS ORDERED: FLUPHENAZI25 MG/1 ML IJ (16:19)
[2020-05-11] MEDS ORDERED: ASCORBIC ACID500 M4 ORAL (16:19)
[2020-05-11] MEDS ORDERED: NAMENDA5 MG ORAL (16:19)
[2020-05-11] MEDS ORDERED: QUETIAPINE FUMA50 MG ORAL (16:19)
[2020-05-11] MEDS ORDERED: ASPIRIN EC81 MG ORAL (16:19)
[2020-05-11] MEDS ORDERED: ACETAMINOPHEN325 M1 ORAL (16:19)
[2020-05-11] MEDS ORDERED: REMERON15 MG ORAL (16:19)
[2020-05-11] MEDS ORDERED: LEVOTHYROXINE75 MCG ORAL (16:19)
[2020-05-11] MEDS ORDERED: LACTULOSE20 GM/301 ORAL (16:19)
[2020-05-11] MEDS ORDERED: HEPARIN SO5000 UNIT2 SUBQ (16:19)
[2020-05-11] MEDS ORDERED: CRANBERRY450 M4 PO (16:19)
[2020-05-11] MEDS ORDERED: ATORVASTATIN CA20 MG ORAL (16:19)
[2020-05-11] MEDS ORDERED: FAMOTIDINE20 MG ORAL (16:19)
[2020-05-11] MEDS ORDERED: FUROSEMIDE20 M1 ORAL (16:19)
--- NOTE | 2020-05-11 16:34 | Emergency Room Report ---
History of Present Illness General Chief Complaint: Dyspnea/Respdistress Source: Patient Present Illness HPI 79-year-old female with past medical history of schizophrenia, psychosis, COPD, hypertension, CHF, dyslipidemia, encephalopathy brought in by ambulance for hypoxia. According to EMS, patient has been noncompliant with all of her [facility] medications [facility], therefore her PMD Dr. Perera referred her to the emergency department for further evaluation. Patient has no complaints at this time. She states that she is refusing everything. She is unable to tell me her name, where she is, or what she is doing here in the emergency department. History is limited secondary to patient's clinical status. The patient's symptoms were gradual onset, severity was moderate, duration since several days. Quality: Generally weak, short of breath Past medical history: Schizophrenia, psychosis, COPD, CHF, hypertension, dyslipidemia Past surgical history: Denies Smoking: Denies Alcohol use: Denies Drug use: Denies Review of systems: CONST: No fevers or chills, No night sweats PULMONARY: No productive cough, positive shortness of breath CARDIAC: No chest pain, No palpitations GI: No vomiting, No diarrhea , No melena_or_BRBPR : No dysuria, No hematuria, No discharge NEURO: No new_focal_weakness_or_numbness, No confusion, No vision changes 14 point Review of Systems is otherwise negative except per HPI Physical Exam: GENERAL: Awake_alert_ nontoxic, no acute distress Spo2 60% on RA -abnormal. Diaphoretic EYES: Extraocular muscles are intact. Conjunctivae clear. Lids without swelling ENT: External nose and ear normal_in_appearance. Oropharynx clear. Head_atraumatic, Moist_oral_mucosa NECK: Positive JVD. No meningismus. No thyromegaly. Supple. Trachea midline RESP: Increased respiratory effort. Subcostal retractions.. Coarse breath sounds bilaterally CARDIAC: Regular rate and regular rhytm. No_significant pedal edema. ABDOMEN: Soft. Nondistended. Nontender_No_rebound_or_guarding. MSK: Normal muscle tone, without rigidity. Extremities without asymmetric deformity or swelling. SKIN: Warm and dry. No visible cyanosis or pallor NEUROLOGIC: Alert, oriented x0. Motor_and_sensation_grossly_intact. No truncal ataxia. Gait_normal Psych: Normal mood and affect, normal judgment and insight - COORDINATION OF CARE Case was discussed with: Patient , Patient's Physician Any labs and imaging that were ordered were interpreted as part of the medical decision making: Medical Decision Making/Plan: Differential includes CHF, pulmonary edema, pulmonary embolism, pneumonia, pleural effusions, pneumothorax, among others. EKG showed accelerated junctional rhythm with PVCs. Lots of artifact, therefore will repeat. She has T wave inversions in V4 through V6 CXR shows diffuse interstitial opacities versus edema. Covid positive. Troponin negative x1. BNP was grossly elevated at 23,000 105. ABG paCO2 showed hypercapnic respiratory failure. Patient was intubated secondary to increasing encephalopathy, likely secondary to supplemental oxygen to correct her hypoxemia. Patient was too altered for BiPAP. Inflammatory markers including CRP, LDH. Lactate is within normal limits Symptoms are not likely to be due to pulmonary embolism, the patient has no significant PE risk factors and has a more likely alternate cause of their symptoms, given their chest xray findings, lung exam and presentation so workup was deferred and not pursued. The patient appears to be in decompensated CHF in exacerbation and not a suitable candidate for outpatient treatment so will be admitted for inpatient diuresis and further evaluation and treatment. I spoke with Dr. Perera, and reviewed the patients presentation, workup, results, and treatment. They will admit the patient for further care and evaluation, and assume care of the patient at this time. - CRITICAL CARE TIME - I spent 75 minutes of critical care time. This time excludes any separately billable procedures. Treatments/Evaluations: Emergent and rapid respiratory assessment and management with continuous monitoring. Advanced airway equipment at the ready, while the patient's respiratory symptoms were stabilized. Given the patients presentation with CHF requiring oxygen, there existed the potential for imminent deterioration in the patient's condition due to respiratory compromise. Organ systems at risk for failure without immediate intervention include [pulmonary / respiratory] Allergies: Coded Allergies: No Known Allergies (Unverified , 05/11/20) COVID-19 Screening Contact w/high risk pt: No Experienced COVID-19 symptoms?: No COVID-19 Testing performed CARD PUNCHER: No Nursing Documentation-PMH Hx Cardiac Problems: Yes Hx Hypertension: Yes Hx Diabetes: Yes History Of Psychiatric Problem: Yes - schizo Hx Seizures: Yes Physical Exam Vital Signs Date Time Temp Pulse Resp B/P (MAP) Pulse Ox O2 Delivery O2 Flow Rate FiO2 05/11/20 15:49 98.1 73 20 136/78 (97) 98 Room Air Sp02 EP Interpretation: reviewed, abnormal Procedures Intubation Progress Procedure Note: Endotracheal Intubation by me: Pre assessment performed. See preceding note for details. Pre-oxygenation performed with 100% oxygen RSI: Performed w/o complication or hypoxic events. Medications as ordered. Emergency Endotracheal Intubation: Consent unable to be obtained due to emergent nature of procedure and airway assessment this patient was prepared for endotracheal intubation with preoxygenation and airway positioning. The patient underwent rapid sequence induction and endotracheal intubation utilizing direct visualization laryngoscopy. The endotracheal tube was placed between the vocal c ords and placement was confirmed with fogging of the tube, end title CO2, and equal bilateral chest rise as well as absence of borborygmi over the epigastrium. Chest x-ray was obtained for final confirmation. There were no complications. Blade: Video laryngoscopy 4 ET Tube: 7.5 cm Depth: 23 cm at the lip Complications: No hypoxic events or bradycardia Intubation confirmed by colorimetric CO2, equal breath sounds, quiet over the stomach. Intubated with full C spine precautions, with the assistance of community living specialist. Medical Decision Making Diagnostic Impression: Primary Impression: CHF exacerbation Additional Impressions: Hypoxia COPD (chronic obstructive pulmonary disease) Psychosis COVID-19 Hypercapnic respiratory failure Anemia EKG Diagnostic Results Troponin ordered: Yes When was troponin ordered?: May 11, 2020 ASA given to the pt in ED: No PA Scribe Text 12-lead EKG (interpreted by me) Time: 1623 Indication: Rhythm analysis Tracing visualized and Interpreted by me. Rhythm: Accelerated junctional rhythm. PVCs. Rate: 79 bpm QTc: 451 Morphology: No_significant_ST_elevations_or_depressions, No STEMI Impression: Junctional rhythm. T wave inversions V4 through V6. Rhythm Strip Diag. Results Rhythm Strip Time: 16:33 EP Interpretation: yes Rate: 73 Rhythm: NSR, no PVC's, no ectopy Chest X-Ray Diagnostic Results Chest X-Ray Diagnostic Results : PA Scribe Text Chest X-Ray: Views: [ 1 ] view(s) Indication: Shortness of breath Findings: Cardiomegaly Impression: CHF, covid The X-ray(s) were independently viewed and interpreted contemporaneously Electronically signed by Yue luke DO Chest X-ray: No acute disease. Normal heart size. Mediastinum normal. No infiltrate. No pneumothorax. ETT in appropriate position above Shakila. OG/NG tube in appropriate position Indication: ETT placement confirmation Impression: Appropriately positioned ETT Views: 1 view The X-rays were independently viewed by me and interpreted contemporaneously by me. Reevaluation Time: 18:09 Last Vital Signs Date Time Temp Pulse Resp B/P (MAP) Pulse Ox O2 Delivery O2 Flow Rate FiO2 05/11/20 15:49 98.1 73 20 136/78 (97) 98 Room Air Status: improved Disposition: ADMITTED INPATIENT Admit Decision Time: 16:34 Condition: Serious Yue Vivas D.O. May 11, 2020 16:34
--- NOTE | 2020-05-11 17:01 | Cardiac Electrophysiology PN ---
Subjective Subjective Patient seen in ER and [facility] Er . Dictated [id number] Clinical CHF Objective Last 24 Hour Vital Signs Date Time Temp Pulse Resp B/P (MAP) Pulse Ox O2 Delivery O2 Flow Rate FiO2 05/11/20 15:49 98.1 73 20 136/78 (97) 98 Room Air Laboratory Tests Test 05/11/20 16:34 Arterial Blood pH 7.317 (7.350-7.450) Arterial Blood Partial Pressure CO2 50.5 mmHg (35.0-45.0) H Arterial Blood Partial Pressure O2 132.4 mmHg (75.0-100.0) H Arterial Blood HCO3 25.3 mmol/L (22.0-26.0) Arterial Blood Oxygen Saturation 97.8 % (95-100) Arterial Blood Base Excess -1.1 (-2-2) Raphael Test Positive Cameron Davies MD May 11, 2020 17:01
[2020-05-11 17:18] LABS: BASOPHILS % (AUTO) 0.6 % (0.0-2.0); HEMATOCRIT 27.9 % (37.0-47.0); HEMOGLOBIN 9.4 G/DL (12.0-16.0); LYMPHOCYTES % (AUTO) 20.8 % (20.0-45.0); MEAN CORPUSCULAR VOLUME 96 FL (80-99); MONOCYTES % (AUTO) 4.7 % (1.0-10.0); NEUTROPHILS % (AUTO) 73.9 % (45.0-75.0); PLATELET COUNT 155 K/UL (150-450); RED BLOOD COUNT 2.91 M/UL (4.20-5.40); RED CELL DISTRIBUTION WIDTH 13.3 % (11.6-14.8); WHITE BLOOD COUNT 5.2 K/UL (4.8-10.8)
--- NOTE | 2020-05-11 17:20 | Diagnostic Imaging Report ---
FILM CXR 1 VIEW History: Shortness of breath Comparison: None Findings: Enlarged heart with ill-defined right upper and right lower lobe opacities and less severe left upper and left lower lobe opacities. No effusion or pneumothorax appreciated. Degenerative changes of the spine and shoulders noted. No acute osseous abnormality. Impression: Enlarged heart and interstitial prominence with ill-defined right upper and right lower lobe and left lung opacities from multifocal pneumonia versus volume overload.
[2020-05-11 17:41] LABS: CALCIUM 8.4 MG/DL (8.5-10.1); CREATININE 1.3 MG/DL (0.55-1.30); POTASSIUM 4.1 MMOL/L (3.5-5.1)
[2020-05-11 17:51] VITALS: BP 95/62
[2020-05-11 17:54] VITALS: BP 115/48
[2020-05-11 17:55] VITALS: BP 87/53
[2020-05-11 17:58] LABS: ALBUMIN 3.7 G/DL (3.4-5.0); ALBUMIN/GLOBULIN RATIO 0.9 (1.0-2.7); BILIRUBIN,TOTAL 0.7 MG/DL (0.2-1.0); PHOSPHORUS 3.7 MG/DL (2.5-4.9)
[2020-05-11 18:10] LABS: APPEARANCE,URINE CLOUDY; BILIRUBIN, URINE NEGATIVE (NEGATIVE); COLOR,URINE YELLOW; GLUCOSE, URINE (UA) NEGATIVE (NEGATIVE); KETONES,URINE NEGATIVE (NEGATIVE); LEUKOCYTE ESTERASE ,URINE 3+ (NEGATIVE); NITRITE,URINE NEGATIVE (NEGATIVE); PH,URINE 5 (4.5-8.0); PROTEIN,URINE 3+ (NEGATIVE); UROBILINOGEN,URINE 1 MG/DL (0.0-1.0)
[2020-05-11] MEDS ORDERED: propofoL 1,000mg/100ml 100 ML IV SCH (18:15)
--- NOTE | 2020-05-11 18:36 | Diagnostic Imaging Report ---
FILM CXR 1 VIEW History: Shortness of breath Comparison: 11 May 2020 at 4:37 PM Findings: Enlarged heart with bilateral infiltrates with more severe disease in the right upper lobe and right lower lobe. Endotracheal tube in place with the tip 2.8 cm above the du. Degenerative changes are present. Mild interstitial prominence noted. Impression: Endotracheal tube in place with tip above the du with multilobar pneumonia with most severe disease in the right upper lobe and right lower lobe.
[2020-05-11] MEDS ORDERED: Levophed 4mg/4mL Inj IV ONE (18:54)
[2020-05-11] MEDS ORDERED: Norepinephrine 4mg/NS Premix 250 ML IV SCH (19:30)
--- NOTE | 2020-05-11 21:45 | Consultation ---
DATE OF CONSULTATION: 05/11/2020 PULMONARY CONSULTATION CONSULTING PHYSICIAN: Sincere Myers MD HISTORY OF PRESENT ILLNESS: This is an 79-year-old female with a history of COPD and schizophrenia. She also has underlying CHF and encephalopathy. She was brought in by paramedics with hypoxemia. The patient apparently is a shelter resident and is noncompliant. She is refusing her care. She was seen and evaluated in the emergency room. She was found to be hypoxic. She was given diuretics by the ER physician and youth manager. She is admitted to the hospital for management and care. The patient underwent a rapid COVID-19 testing which is positive for COVID-19 pneumonia. She also underwent imaging studies, which showed patchy infiltrates. At this time, the patient unable to provide any further history. PAST MEDICAL HISTORY: Schizophrenia, psychosis, COPD, CHF, hypertension, dyslipidemia. REVIEW OF SYSTEMS: Unreliable. PHYSICAL EXAMINATION: GENERAL: Reveals an 79-year-old female. HEENT: Unremarkable. CHEST: There is decreased breath sounds bilaterally. ABDOMEN: Soft. There is no edema. NEUROLOGIC: Nonfocal. LABORATORY DATA: Lab testing shows hemoglobin 11.4, otherwise normal CBC and BMP. ABG 7.31, pCO2 50, and PO2 132. IMAGING STUDIES: X-ray chest obtained, which showed bilateral infiltrates. IMPRESSION: 1. Bilateral COVID-19 pneumonia. 2. History of COPD. 3. Schizophrenia. 4. Hypoxia. 5. Hypertension. DISCUSSION: Admit to the hospital. The patient will need diuretics. The patient will benefit from broad-spectrum antibiotics. She will receive Decadron as well. She is a candidate for remdesivir; therefore, ID will follow carefully. Sincere Myers M.D. DR: Rodo JOB#: [id number] CC:
[2020-05-12] VITALS (57 sets, daily range): BP systolic 76–142; BP diastolic 26–57
[2020-05-12] MEDS ORDERED: propofoL 1,000mg/100ml 100 ML IV SCH (01:00)
--- NOTE | 2020-05-12 01:00 | Consultation ---
DATE OF CONSULTATION: 05/11/2020 CONSULTING PHYSICIAN: Cameron Davies MD REFERRING PHYSICIAN: Dani Perera MD REASON FOR CONSULTATION: Shortness of breath and lower extremity edema in the patient with congestive heart failure. HISTORY OF PRESENT ILLNESS: The patient is an 79-year-old lady with history of hypertension, congestive heart failure, dyslipidemia, encephalopathy, psychosis, schizophrenia, and COPD, who was brought in for hypoxia from [facility]. The patient has been noncompliant with medications in the nursing facility. In the emergency room, the patient was noted to be short of breath and with severe bilateral lower extremity edema. Cardiology consultation was obtained for further evaluation. Her EKG showed T-wave inversion in V4 through V6. REVIEW OF SYSTEMS: Negative other than what was mentioned in the history of present illness. PAST MEDICAL HISTORY: As mentioned above. FAMILY HISTORY: Noncontributory. SOCIAL HISTORY: longterm resident. Does not smoke or drink alcohol. PHYSICAL EXAMINATION: VITAL SIGNS: Show blood pressure 136/78, pulse 73, respirations 20, and temperature 98.1. HEAD AND NECK: Showed positive JVD. LUNGS: Decreased breath sounds. CARDIOVASCULAR: Regular S1 and S2 with no gallop. ABDOMEN: Obese. EXTREMITIES: Bilateral 2+ pitting edema. LABORATORY DATA: ABG showed pH of 7.31, pCO2 of 50, pO2 of 132, and bicarb 25. Rest of the labs are pending. ASSESSMENT AND PLAN: 1. Shortness of breath. This can be because of CHF. We will start the patient on Lasix 40 mg IV b.i.d. We will get lower extremity duplex. The patient will also be on oxygen. 2. History of COPD. 3. Hypertension. Continue Lasix at this time. 4. Hyperlipidemia. 5. COPD. 6. Schizophrenia and psychosis. Thank you very much for allowing me to participate in the care of this patient. Please do not hesitate to contact me for any questions regarding my evaluation. Cameron Davies M.D. DR: Teresa JOB#: [id number] CC:
[2020-05-12] MEDS: Norepinephrine 4mg/NS Premix 250 ML IV SCH (01:25)
[2020-05-12 05:35] LABS: BASOPHILS % (AUTO) 0.3 % (0.0-2.0); EOSINOPHILS % (AUTO) 0.1 % (0.0-3.0); HEMATOCRIT 25.3 % (37.0-47.0); HEMOGLOBIN 9.1 G/DL (12.0-16.0); LYMPHOCYTES % (AUTO) 16.4 % (20.0-45.0); MEAN CORPUSCULAR VOLUME 90 FL (80-99); MONOCYTES % (AUTO) 4.5 % (1.0-10.0); NEUTROPHILS % (AUTO) 78.7 % (45.0-75.0); PLATELET COUNT 169 K/UL (150-450); RED CELL DISTRIBUTION WIDTH 14.7 % (11.6-14.8); WHITE BLOOD COUNT 5.8 K/UL (4.8-10.8)
[2020-05-12 06:06] LABS: CALCIUM 8.1 MG/DL (8.5-10.1); CREATININE 1.3 MG/DL (0.55-1.30); POTASSIUM 3.8 MMOL/L (3.5-5.1)
--- NOTE | 2020-05-12 08:41 | Consultation ---
Consult Note Consult Note I am asked to evaluate the patient at the request of Dr. Gardner for renal failure and fluid and electrolyte management Patient seen in ICU room H Patient intubated on mechanical ventilation 79-year-old female with past medical history of schizophrenia, psychosis, COPD, hypertension, CHF, dyslipidemia, encephalopathy brought in by ambulance for hypoxia. According to EMS, patient has been noncompliant with all of her administered medications at her [facility] facility, therefore her PMD Dr. Perera referred her to the emergency department for further evaluation. Patient has no complaints at this time. She states that she is refusing everything. She is unable to tell me her name, where she is, or what she is doing here in the emergency department. History is limited secondary to patient's clinical status. The patient's symptoms were gradual onset, severity was moderate, duration since several days. Quality: Generally weak, short of breath Past surgical history: Denies Smoking: Denies Alcohol use: Denies Drug use: Denies Allergies: No Known Allergies (Unverified , 05/11/20) COVID-19 Screening Contact w/high risk pt: No Experienced COVID-19 symptoms?: No COVID-19 Testing performed INSTALLMENT LOAN COLLECTOR: No Hx Cardiac Problems: Yes Hx Hypertension: Yes Hx Diabetes: Yes History Of Psychiatric Problem: Yes - schizo Hx Seizures: Yes Vital Signs in ER: Date Time Temp Pulse Resp B/P (MAP) Pulse Ox O2 Delivery O2 Flow Rate FiO2 05/11/20 15:49 98.1 73 20 136/78 (97) 98 Room Air PHYSICAL EXAMINATION: VITAL SIGNS: No fever. Since admission, temperature is 98.2, heart rate is 70, blood pressure 130/35. GENERAL APPEARANCE: Obese. HEAD AND NECK: Orally intubated. Has NG tube. HEART: Normal rate. Has right femoral line. LUNGS: Decreased sounds bilaterally on ventilator. ABDOMEN: Soft. EXTREMITIES: No significant edema. Sequential compression device of legs. NEUROLOGIC: Unresponsive. LABORATORY AND DIAGNOSTIC DATA: WBC 5.8, hemoglobin 9.1, hematocrit 25.3, platelets is 169. Sodium 138, potassium 3.8, chloride 102, bicarb 24, BUN 47, creatinine 1.3. Lactic acid is 6.2. Blood gas showed pH of 7.317 at the time of admission, pCO2 of 50.5 decreased to 37.2. COVID-19 test is positive. Chest x-ray showed bilateral infiltrate, multifocal pneumonia, and cardiomegaly. . Assessment/Plan Azotemia/renal failure Acute respiratory failure most likely secondary to CHF, on mechanical ventilation History of COPD Hypertension Hyperlipemia Schizophrenia/psychosis Discussed with RN Pulmonary support Monitor intake and output Monitor electrolytes Continue per consultants Per orders Bryan Ochoa MD May 12, 2020 08:41
[2020-05-12] MEDS: DOPamine 400mg/250ml 250 ML IV SCH ×3 (10:01→21:28)
[2020-05-12] MEDS ORDERED: Haloperidol Lactate 5 MG in D5W 55 ML IVPB PRN (10:45)
[2020-05-12 10:49] LABS: ALANINE AMINOTRANSFERASE 10 U/L (12-78); ALBUMIN 3.1 G/DL (3.4-5.0); ALKALINE PHOSPHATASE 53 U/L (46-116); ASPARTATE AMINO TRANSFERASE 23 U/L (15-37); BILIRUBIN,DIRECT 0.2 MG/DL (0.0-0.3); BILIRUBIN,TOTAL 0.6 MG/DL (0.2-1.0); PHOSPHORUS 3.8 MG/DL (2.5-4.9)
[2020-05-12 11:38] LABS: % IRON SATURATION 8 % (15-50); IRON 24 ug/dL (50-175); TOTAL IRON BINDING CAPACITY 303 ug/dL (250-450)
--- NOTE | 2020-05-12 13:50 | Pulmonology Progress Note ---
Subjective Interval Events: Intubated overnight Constitutional: Reports: no symptoms HEENT: Repors: no symptoms Respiratory: Reports: no symptoms Cardiovascular: Reports: no symptoms Gastrointestinal/Abdominal: Reports: no symptoms Genitourinary: Reports: no symptoms Allergies: Coded Allergies: No Known Allergies (Unverified , 05/11/20) Objective Last 24 Hour Vital Signs Date Time Temp Pulse Resp B/P (MAP) Pulse Ox O2 Delivery O2 Flow Rate FiO2 05/12/20 13:30 62 18 129/31 (63) 92 05/12/20 13:00 65 18 131/33 (65) 92 05/12/20 12:30 64 18 132/31 (64) 92 05/12/20 12:00 64 18 132/31 (64) 93 05/12/20 12:00 134/37 05/12/20 12:00 Mechanical Ventilator 05/12/20 11:30 74 18 136/34 (68) 92 05/12/20 11:20 69 18 60 05/12/20 11:00 79 18 142/38 (72) 93 05/12/20 11:00 138/35 05/12/20 10:45 82 18 134/33 (66) 93 05/12/20 10:45 142/38 05/12/20 10:30 57 18 134/33 (66) 91 05/12/20 10:30 57 18 134/33 (66) 91 05/12/20 10:30 99/28 05/12/20 10:15 99/28 05/12/20 10:15 65 20 93/29 (50) 97 05/12/20 10:01 117/38 05/12/20 10:00 50 16 109/29 (55) 97 05/12/20 09:30 49 18 117/27 (57) 97 05/12/20 09:00 59 18 107/32 (57) 99 05/12/20 08:59 50 05/12/20 08:45 50 18 117/28 (57) 98 05/12/20 08:30 50 18 112/27 (55) 98 05/12/20 08:15 51 18 109/28 (55) 99 05/12/20 08:00 Mechanical Ventilator 05/12/20 08:00 53 18 104/28 (53) 100 05/12/20 08:00 50 05/12/20 07:59 50 05/12/20 07:58 53 16 105/30 (55) 99 05/12/20 07:45 61 19 76/26 (43) 97 05/12/20 07:38 61 17 81/27 (45) 97 05/12/20 07:30 98.8 58 19 86/26 (46) 98 05/12/20 07:20 51 18 05/12/20 07:20 18 108/32 Mechanical Ventilator 60 05/12/20 07:15 52 17 108/32 (57) 99 05/12/20 07:00 52 18 106/30 (55) 99 05/12/20 07:00 18 106/30 Mechanical Ventilator 60 05/12/20 07:00 50 18 50 05/12/20 06:00 18 107/32 Mechanical Ventilator 60 05/12/20 05:00 18 123/36 Mechanical Ventilator 60 05/12/20 04:00 30 05/12/20 04:00 60 18 117/36 (63) 100 05/12/20 04:00 18 119/36 Mechanical Ventilator 60 05/12/20 03:56 59 18 60 05/12/20 03:30 59 18 120/38 (65) 100 05/12/20 03:00 58 18 120/38 (65) 100 05/12/20 03:00 18 120/38 Mechanical Ventilator 60 05/12/20 02:30 59 18 117/36 (63) 100 05/12/20 02:00 60 18 112/37 (62) 100 05/12/20 02:00 18 111/37 Mechanical Ventilator 60 05/12/20 01:30 61 19 117/36 (63) 99 05/12/20 01:28 20 114/54 60 05/12/20 01:25 114/56 05/12/20 01:00 114/37 05/12/20 01:00 18 114/37 Mechanical Ventilator 60 05/12/20 01:00 62 18 115/36 (62) 99 05/12/20 00:30 62 18 109/39 (62) 100 05/12/20 00:27 60 05/12/20 00:02 66 05/12/20 00:00 108/37 05/12/20 00:00 18 108/37 Mechanical Ventilator 60 05/12/20 00:00 98.6 64 17 112/37 (62) 100 05/11/20 23:56 Mechanical Ventilator 60.0 05/11/20 23:46 64 17 100 Mechanical Ventilator 60 05/11/20 23:28 64 18 60 05/11/20 23:00 108/51 05/11/20 23:00 20 108/51 Mechanical Ventilator 100 05/11/20 23:00 98.5 76 20 108/51 99 Mechanical Ventilator 15.0 100 05/11/20 22:45 109/53 05/11/20 22:45 20 109/53 Mechanical Ventilator 100 05/11/20 22:30 105/52 05/11/20 22:30 20 105/52 Mechanical Ventilator 100 05/11/20 22:15 102/51 05/11/20 22:15 20 102/52 Mechanical Ventilator 05/11/20 22:00 104/54 05/11/20 22:00 20 104/54 Mechanical Ventilator 100 05/11/20 21:45 107/56 05/11/20 21:45 20 107/56 Mechanical Ventilator 100 05/11/20 21:30 105/52 05/11/20 21:30 20 105/52 Mechanical Ventilator 100 05/11/20 21:15 109/53 05/11/20 21:10 98/51 05/11/20 21:10 18 109/53 Mechanical Ventilator 100 05/11/20 21:05 92/46 05/11/20 21:00 84/45 05/11/20 19:30 108/36 05/11/20 19:12 83 18 100 05/11/20 18:17 80 18 100 05/11/20 18:15 18 109/56 Mechanical Ventilator 100 05/11/20 17:55 74 20 87/53 99 Mechanical Ventilator 100 05/11/20 17:54 81 20 115/48 100 Mechanical Ventilator 100 05/11/20 17:51 98.5 78 27 95/62 93 Non-Rebreather 15.0 99 05/11/20 16:07 98.3 85 22 133/69 98 Non-Rebreather 15.0 05/11/20 16:07 85 22 Non-Rebreather 15.0 99 05/11/20 15:49 98.1 73 20 136/78 (97) 98 Room Air Intake and Output 05/11/20 05/12/20 19:00 07:00 Intake Total 277.36 ml Output Total 580 ml Balance -302.64 ml Intake Oral 0 ml IV Total 277.36 ml Output Urine Total 580 ml General Appearance: no acute distress HEENT: normocephalic Respiratory: chest wall non-tender, lungs clear Cardiovascular: normal peripheral pulses Abdomen: normal bowel sounds Extremities: no cyanosis Microbiology Date/Time Source Procedure Growth Status 05/11/20 16:30 Nasopharynx SARS-CoV-2 RdRp Gene Assay - Final Complete Laboratory Tests 05/11/20 16:34: Arterial Blood pH 7.317L, Arterial Blood Partial Pressure CO2 50.5H, Arterial Blood Partial Pressure O2 132.4H, Arterial Blood HCO3 25.3, Arterial Blood Oxygen Saturation 97.8, Arterial Blood Base Excess -1.1, Raphael Test Positive 05/11/20 16:50: White Blood Count 5.2, Red Blood Count 2.91L, Hemoglobin 9.4L, Hematocrit 27.9L, Mean Corpuscular Volume 96, Mean Corpuscular Hemoglobin 32.2H, Mean Corpuscular Hemoglobin Concent 33.6, Red Cell Distribution Width 13.3, Platelet Count 155, Mean Platelet Volume 7.3, Neutrophils (%) (Auto) 73.9, Lymphocytes (%) (Auto) 20.8, Monocytes (%) (Auto) 4.7, Eosinophils (%) (Auto) 0.0, Basophils (%) (Auto) 0.6, Prothrombin Time 11.3, Prothromb Time International Ratio 1.0, Activated Partial Thromboplast Time 32, Sodium Level 138, Potassium Level 4.1, Chloride Level 102, Carbon Dioxide Level 29, Anion Gap 7, Blood Urea Nitrogen 44H, Creatinine 1.3, Estimat Glomerular Filtration Rate 39.4, Glucose Level 111H, Lactic Acid Level 1.00, Calcium Level 8.4L, Phosphorus Level 3.7, Magnesium Level 2.1, Ferritin 278, Total Bilirubin 0.7, Aspartate Amino Transf (AST/SGOT) 29, Alanine Aminotransferase (ALT/SGPT) 19, Alkaline Phosphatase 62, Lactate Dehydrogenase 308H, Troponin I 0.029, C-Reactive Protein, Quantitative 11.9H, Pro-B-Type Natriuretic Peptide 09969Y, Total Protein 7.8, Albumin 3.7, Globulin 4.1, Albumin/Globulin Ratio 0.9L, Triglycerides Level 137, Lipase 169 05/11/20 17:00: Urine Color Yellow, Urine Appearance Cloudy, Urine pH 5, Urine Specific [place] 1.015, Urine Protein 3+H, Urine Glucose (UA) Negative, Urine Ketones Negative, Urine Blood 3+H, Urine Nitrite Negative, Urine Bilirubin Negative, Urine Urobi linogen 1H, Urine Leukocyte Esterase 3+H, Urine RBC 5-10H, Urine WBC 20-30H, Urine Squamous Epithelial Cells Few, Urine Bacteria ModerateH 05/11/20 19:34: Arterial Blood pH 7.442, Arterial Blood Partial Pressure CO2 37.2, Arterial Blood Partial Pressure O2 262.3H, Arterial Blood HCO3 24.8, Arterial Blood Oxygen Saturation 99.1, Arterial Blood Base Excess 0.8, Raphael Test Positive 05/12/20 03:28: White Blood Count 5.8, Red Blood Count 2.80L, Hemoglobin 9.1L, Hematocrit 25.3L, Mean Corpuscular Volume 90, Mean Corpuscular Hemoglobin 32.3H, Mean Corpuscular Hemoglobin Concent 35.8, Red Cell Distribution Width 14.7, Platelet Count 169, Mean Platelet Volume 7.4, Neutrophils (%) (Auto) 78.7H, Lymphocytes (%) (Auto) 16.4L, Monocytes (%) (Auto) 4.5, Eosinophils (%) (Auto) 0.1, Basophils (%) (Auto) 0.3, Sodium Level 138, Potassium Level 3.8, Chloride Level 102, Carbon Dioxide Level 24, Anion Gap 12, Blood Urea Nitrogen 47H, Creatinine 1.3, Estimat Glomerular Filtration Rate 39.4, Glucose Level 146H, Calcium Level 8.1L, Troponin I 0.018, Pro-B-Type Natriuretic Peptide 61591R, Triglycerides Level 154H, Digoxin Level < 0.2L 05/12/20 09:20: Iron Level 24L, Total Iron Binding Capacity 303, Percent Iron Saturation 8L, Unsaturated Iron Binding 279, Vitamin B12 Level 569, Folate 24.1 05/12/20 09:29: Hemoglobin A1c 6.2H, Uric Acid 9.3H, Phosphorus Level 3.8, Magnesium Level 1.9, Total Bilirubin 0.6, Direct Bilirubin 0.2, Aspartate Amino Transf (AST/SGOT) 23, Alanine Aminotransferase (ALT/SGPT) 10L, Alkaline Phosphatase 53, Total Protein 7.0, Albumin 3.1L Current Medications Medications (Trade) Dose Ordered Sig/Angie Route PRN Reason Start Time Stop Time Status Last Admin Dose Admin Clonidine HCl (Catapres Tab) 0.1 mg Q4H PRN ORAL sbp>170 05/11/20 17:15 08/09/20 17:14 Dopamine HCl/ Dextrose 250 ml @ 6.825 mls/ hr Q24H IV 05/12/20 09:45 05/15/20 09:42 05/12/20 10:30 Haloperidol Lactate 5 mg/ Dextrose 56 ml @ 224 mls/hr Q6H PRN IVPB Agitation 05/12/20 10:45 06/26/20 10:44 Norepinephrine Bitartrate 250 ml @ 0 mls/hr Q24H IV 05/12/20 01:00 05/15/20 00:52 05/12/20 01:25 Assessment/Plan Assessment/Plan IMPRESSION: 1. Bilateral COVID-19 pneumonia. 2. History of COPD. 3. Schizophrenia. 4. Hypoxia. 5. Hypertension. DISCUSSION: Continue broad-spectrum antibiotics. Continue Decadron as well. She is a candidate for remdesivir; defer to ID Continue vent; AC mode FiO2 60% DC propofol for bradycardia On dopamnine infusion May use Haldol Emerita Fan Omar Syed MD May 12, 2020 13:50
[2020-05-12] MEDS ORDERED: ATORVASTATIN CA10 MG ORAL (14:17)
[2020-05-12] MEDS ORDERED: C-10001000 MG ORAL (14:17)
[2020-05-12] MEDS ORDERED: BISACODYL10 M1 RC (14:17)
[2020-05-12] MEDS ORDERED: ASPIRIN EC325 MG ORAL (14:17)
[2020-05-12] MEDS ORDERED: ACETAMINOPHEN500 M3 ORAL (14:17)
[2020-05-12] MEDS ORDERED: MILK OF MA400 MG/51 ORAL (14:17)
[2020-05-12] MEDS ORDERED: PREDNISONE5 M3 PO (14:17)
[2020-05-12] MEDS ORDERED: VITAMIN D325 MC1 PO (14:17)
--- NOTE | 2020-05-12 14:57 | Cardiac Electrophysiology PN ---
Assessment/Plan Assessment/Plan 1. Shortness of breath due to Covid PNA Intubated on the Vent. DC Lasix as is hypotenive 2. History of COPD. 3. Hypotension. On Dopamine 8mcg . EF 55% 4. Bradycardia on Dopamine 5. Schizophrenia and psychosis. Subjective Subjective Developed respiratory failure and intubated in ICU now. Covid is positive. On 60% Fio2 and 8 Mcg of Dopamine as was bradycardic Objective Last 24 Hour Vital Signs Date Time Temp Pulse Resp B/P (MAP) Pulse Ox O2 Delivery O2 Flow Rate FiO2 05/12/20 14:20 Mechanical Ventilator 05/12/20 14:15 70 18 130/35 (66) 96 05/12/20 14:00 62 18 125/31 (62) 93 05/12/20 14:00 122/78 05/12/20 13:30 62 18 129/31 (63) 92 05/12/20 13:00 131/33 05/12/20 13:00 65 18 131/33 (65) 92 05/12/20 12:30 64 18 132/31 (64) 92 05/12/20 12:00 98.2 64 18 132/31 (64) 93 05/12/20 12:00 134/37 05/12/20 12:00 Mechanical Ventilator 05/12/20 11:42 71 05/12/20 11:30 74 18 136/34 (68) 92 05/12/20 11:20 69 18 60 05/12/20 11:00 79 18 142/38 (72) 93 05/12/20 11:00 138/35 05/12/20 10:45 82 18 134/33 (66) 93 05/12/20 10:45 142/38 05/12/20 10:30 57 18 134/33 (66) 91 05/12/20 10:30 57 18 134/33 (66) 91 05/12/20 10:30 99/28 05/12/20 10:15 99/28 05/12/20 10:15 65 20 93/29 (50) 97 05/12/20 10:01 117/38 05/12/20 10:00 50 16 109/29 (55) 97 05/12/20 09:30 49 18 117/27 (57) 97 05/12/20 09:00 59 18 107/32 (57) 99 05/12/20 08:59 50 05/12/20 08:45 50 18 117/28 (57) 98 05/12/20 08:30 50 18 112/27 (55) 98 05/12/20 08:15 51 18 109/28 (55) 99 05/12/20 08:00 Mechanical Ventilator 05/12/20 08:00 53 18 104/28 (53) 100 05/12/20 08:00 50 05/12/20 07:59 50 05/12/20 07:58 53 16 105/30 (55) 99 05/12/20 07:45 61 19 76/26 (43) 97 05/12/20 07:38 61 17 81/27 (45) 97 05/12/20 07:30 98.8 58 19 86/26 (46) 98 05/12/20 07:20 51 18 05/12/20 07:20 18 108/32 Mechanical Ventilator 60 05/12/20 07:15 52 17 108/32 (57) 99 05/12/20 07:00 52 18 106/30 (55) 99 05/12/20 07:00 18 106/30 Mechanical Ventilator 60 05/12/20 07:00 50 18 50 05/12/20 06:00 18 107/32 Mechanical Ventilator 60 05/12/20 05:00 18 123/36 Mechanical Ventilator 60 05/12/20 04:00 30 05/12/20 04:00 60 18 117/36 (63) 100 05/12/20 04:00 18 119/36 Mechanical Ventilator 60 05/12/20 03:56 59 18 60 05/12/20 03:30 59 18 120/38 (65) 100 05/12/20 03:00 58 18 120/38 (65) 100 05/12/20 03:00 18 120/38 Mechanical Ventilator 60 05/12/20 02:30 59 18 117/36 (63) 100 05/12/20 02:00 60 18 112/37 (62) 100 05/12/20 02:00 18 111/37 Mechanical Ventilator 60 05/12/20 01:30 61 19 117/36 (63) 99 05/12/20 01:28 20 114/54 60 05/12/20 01:25 114/56 05/12/20 01:00 114/37 05/12/20 01:00 18 114/37 Mechanical Ventilator 60 05/12/20 01:00 62 18 115/36 (62) 99 05/12/20 00:30 62 18 109/39 (62) 100 05/12/20 00:27 60 05/12/20 00:02 66 05/12/20 00:00 108/37 05/12/20 00:00 18 108/37 Mechanical Ventilator 60 05/12/20 00:00 98.6 64 17 112/37 (62) 100 05/11/20 23:56 Mechanical Ventilator 60.0 05/11/20 23:46 64 17 100 Mechanical Ventilator 60 05/11/20 23:28 64 18 60 05/11/20 23:00 108/51 05/11/20 23:00 20 108/51 Mechanical Ventilator 100 05/11/20 23:00 98.5 76 20 108/51 99 Mechanical Ventilator 15.0 100 05/11/20 22:45 109/53 05/11/20 22:45 20 109/53 Mechanical Ventilator 100 05/11/20 22:30 105/52 05/11/20 22:30 20 105/52 Mechanical Ventilator 100 05/11/20 22:15 102/51 05/11/20 22:15 20 102/52 Mechanical Ventilator 05/11/20 22:00 104/54 05/11/20 22:00 20 104/54 Mechanical Ventilator 100 05/11/20 21:45 107/56 05/11/20 21:45 20 107/56 Mechanical Ventilator 100 05/11/20 21:30 105/52 05/11/20 21:30 20 105/52 Mechanical Ventilator 100 05/11/20 21:15 109/53 05/11/20 21:10 98/51 05/11/20 21:10 18 109/53 Mechanical Ventilator 100 05/11/20 21:05 92/46 05/11/20 21:00 84/45 05/11/20 19:30 108/36 05/11/20 19:12 83 18 100 05/11/20 18:17 80 18 100 05/11/20 18:15 18 109/56 Mechanical Ventilator 100 05/11/20 17:55 74 20 87/53 99 Mechanical Ventilator 100 05/11/20 17:54 81 20 115/48 100 Mechanical Ventilator 100 11/29/20 17:51 98.5 78 27 95/62 93 Non-Rebreather 15.0 99 05/11/20 16:07 98.3 85 22 133/69 98 Non-Rebreather 15.0 05/11/20 16:07 85 22 Non-Rebreather 15.0 99 05/11/20 15:49 98.1 73 20 136/78 (97) 98 Room Air Intake and Output 05/11/20 05/12/20 19:00 07:00 Intake Total 277.36 ml Output Total 580 ml Balance -302.64 ml Intake Oral 0 ml IV Total 277.36 ml Output Urine Total 580 ml Laboratory Tests Test 05/11/20 16:34 05/11/20 16:50 05/11/20 17:00 05/11/20 19:34 Arterial Blood pH 7.317 (7.350-7.450) 7.442 (7.350-7.450) Arterial Blood Partial Pressure CO2 50.5 mmHg (35.0-45.0) H 37.2 mmHg (35.0-45.0) Arterial Blood Partial Pressure O2 132.4 mmHg (75.0-100.0) H 262.3 mmHg (75.0-100.0) H Arterial Blood HCO3 25.3 mmol/L (22.0-26.0) 24.8 mmol/L (22.0-26.0) Arterial Blood Oxygen Saturation 97.8 % (95-100) 99.1 % (95-100) Arterial Blood Base Excess -1.1 (-2-2) 0.8 (-2-2) Raphael Test Positive Positive White Blood Count 5.2 K/UL (4.8-10.8) Red Blood Count 2.91 M/UL (4.20-5.40) L Hemoglobin 9.4 G/DL (12.0-16.0) L Hematocrit 27.9 % (37.0-47.0) L Mean Corpuscular Volume 96 FL (80-99) Mean Corpuscular Hemoglobin 32.2 PG (27.0-31.0) H Mean Corpuscular Hemoglobin Concent 33.6 G/DL (32.0-36.0) Red Cell Distribution Width 13.3 % (11.6-14.8) Platelet Count 155 K/UL (150-450) Mean Platelet Volume 7.3 FL (6.5-10.1) Neutrophils (%) (Auto) 73.9 % (45.0-75.0) Lymphocytes (%) (Auto) 20.8 % (20.0-45.0) Monocytes (%) (Auto) 4.7 % (1.0-10.0) Eosinophils (%) (Auto) 0.0 % (0.0-3.0) Basophils (%) (Auto) 0.6 % (0.0-2.0) Prothrombin Time 11.3 SEC (9.30-11.50) Prothromb Time International Ratio 1.0 (0.9-1.1) Activated Partial Thromboplast Time 32 SEC (23-33) Sodium Level 138 MMOL/L (136-145) Potassium Level 4.1 MMOL/L (3.5-5.1) Chloride Level 102 MMOL/L (98-107) Carbon Dioxide Level 29 MMOL/L (21-32) Anion Gap 7 mmol/L (5-15) Blood Urea Nitrogen 44 mg/dL (7-18) H Creatinine 1.3 MG/DL (0.55-1.30) Estimat Glomerular Filtration Rate 39.4 mL/min (>60) Glucose Level 111 MG/DL (74-106) H Lactic Acid Level 1.00 mmol/L (0.4-2.0) Calcium Level 8.4 MG/DL (8.5-10.1) L Phosphorus Level 3.7 MG/DL (2.5-4.9) Magnesium Level 2.1 MG/DL (1.8-2.4) Ferritin 278 NG/ML (8-388) Total Bilirubin 0.7 MG/DL (0.2-1.0) Aspartate Amino Transf (AST/SGOT) 29 U/L (15-37) Alanine Aminotransferase (ALT/SGPT) 19 U/L (12-78) Alkaline Phosphatase 62 U/L (46-116) Lactate Dehydrogenase 308 U/L (81-234) H Troponin I 0.029 ng/mL (0.000-0.056) C-Reactive Protein, Quantitative 11.9 mg/dL (0.00-0.90) H Pro-B-Type Natriuretic Peptide 85683 pg/mL (0-125) H Total Protein 7.8 G/DL (6.4-8.2) Albumin 3.7 G/DL (3.4-5.0) Globulin 4.1 g/dL Albumin/Globulin Ratio 0.9 (1.0-2.7) L Triglycerides Level 137 MG/DL (30-150) Lipase 169 U/L (73-393) Urine Color Yellow Urine Appearance Cloudy Urine pH 5 (4.5-8.0) Urine Specific [place] 1.015 (1.005-1.035) Urine Protein 3+ (NEGATIVE) H Urine Glucose (UA) Negative (NEGATIVE) Urine Ketones Negative (NEGATIVE) Urine Blood 3+ (NEGATIVE) H Urine Nitrite Negative (NEGATIVE) Urine Bilirubin Negative (NEGATIVE) Urine Urobilinogen 1 MG/DL (0.0-1.0) H Urine Leukocyte Esterase 3+ (NEGATIVE) H Urine RBC 5-10 /HPF (0 - 2) H Urine WBC 20-30 /HPF (0 - 2) H Urine Squamous Epithelial Cells Few /LPF (NONE/OCC) Urine Bacteria Moderate /HPF (NONE) H Test 05/12/20 03:28 05/12/20 09:20 05/12/20 09:29 White Blood Count 5.8 K/UL (4.8-10.8) Red Blood Count 2.80 M/UL (4.20-5.40) L Hemoglobin 9.1 G/DL (12.0-16.0) L Hematocrit 25.3 % (37.0-47.0) L Mean Corpuscular Volume 90 FL (80-99) Mean Corpuscular Hemoglobin 32.3 PG (27.0-31.0) H Mean Corpuscular Hemoglobin Concent 35.8 G/DL (32.0-36.0) Red Cell Distribution Width 14.7 % (11.6-14.8) Platelet Count 169 K/UL (150-450) Mean Platelet Volume 7.4 FL (6.5-10.1) Neutrophils (%) (Auto) 78.7 % (45.0-75.0) H Lymphocytes (%) (Auto) 16.4 % (20.0-45.0) L Monocytes (%) (Auto) 4.5 % (1.0-10.0) Eosinophils (%) (Auto) 0.1 % (0.0-3.0) Basophils (%) (Auto) 0.3 % (0.0-2.0) Sodium Level 138 MMOL/L (136-145) Potassium Level 3.8 MMOL/L (3.5-5.1) Chloride Level 102 MMOL/L (98-107) Carbon Dioxide Level 24 MMOL/L (21-32) Anion Gap 12 mmol/L (5-15) Blood Urea Nitrogen 47 mg/dL (7-18) H Creatinine 1.3 MG/DL (0.55-1.30) Estimat Glomerular Filtration Rate 39.4 mL/min (>60) Glucose Level 146 MG/DL (74-106) H Calcium Level 8.1 MG/DL (8.5-10.1) L Troponin I 0.018 ng/mL (0.000-0.056) Pro-B-Type Natriuretic Peptide 82533 pg/mL (0-125) H Triglycerides Level 154 MG/DL (30-150) H Digoxin Level < 0.2 NG/ML (0.9-2.0) L Iron Level 24 ug/dL (50-175) L Total Iron Binding Capacity 303 ug/dL (250-450) Percent Iron Saturation 8 % (15-50) L Unsaturated Iron Binding 279 ug/dL (112-346) Vitamin B12 Level 569 PG/ML (193-986) Folate 24.1 NG/ML (8.6-58.9) Hemoglobin A1c 6.2 % (4.3-6.0) H Uric Acid 9.3 MG/DL (2.6-7.2) H Phosphorus Level 3.8 MG/DL (2.5-4.9) Magnesium Level 1.9 MG/DL (1.8-2.4) Total Bilirubin 0.6 MG/DL (0.2-1.0) Direct Bilirubin 0.2 MG/DL (0.0-0.3) Aspartate Amino Transf (AST/SGOT) 23 U/L (15-37) Alanine Aminotransferase (ALT/SGPT) 10 U/L (12-78) L Alkaline Phosphatase 53 U/L (46-116) Total Protein 7.0 G/DL (6.4-8.2) Albumin 3.1 G/DL (3.4-5.0) L Microbiology Date/Time Source Procedure Growth Status 05/11/20 16:30 Nasopharynx SARS-CoV-2 RdRp Gene Assay - Final Complete Objective HEAD AND NECK: positive JVD.Orally intubated LUNGS: Decreased breath sounds. CARDIOVASCULAR: Regular S1 and S2 with no gallop. ABDOMEN: Obese. EXTREMITIES: Bilateral 2+ pitting edema. Cameron Davies MD May 12, 2020 14:57
--- NOTE | 2020-05-12 15:36 | Diagnostic Imaging Report ---
Indication: Post nasogastric tube placement Technique: Supine view of the abdomen Comparison: none Findings: There is a nasogastric tube, tip which projects at the level gastric antrum body junction. Bowel gas pattern is unremarkable. Calcifications project over the right sacral wing. There is a Ace catheter. There is a right groin central venous catheter Impression: Satisfactory nasogastric intubation No acute process Incidental findings as noted
[2020-05-12] MEDS: Azithromycin 250 MG in D5W 275 ML IV SCH (16:44)
[2020-05-12] MEDS: cefTRIAXone 1 GM in D5W 55 ML IVPB SCH (16:44)
[2020-05-12] MEDS: dexAMETHasone 10mg/ml Inj IV SCH (16:44)
--- NOTE | 2020-05-12 18:23 | Psychiatry Consultation ---
Psychiatry Consultation Psychiatry Consultation Chief Complaint: Dyspnea/Respdistress Allergies: Coded Allergies: No Known Allergies (Unverified , 05/11/20) Medication History Scheduled Ascorbic Acid (C-1000), 2,000 MG ORAL DAILY, (Reported) Aspirin* (Aspirin Ec*), 325 MG ORAL DAILY, (Reported) Atorvastatin Calcium* (Lipitor*), 10 MG ORAL BEDTIME, (Reported) Cholecalciferol (Vitamin D3) (Vitamin D3*), 25 MCG PO DAILY, (Reported) Famotidine* (Pepcid 20mg tablet*), 20 MG ORAL DAILY, (Reported) Fluphenazine Decanoate (Fluphenazine Decanoate), 50 MG IJ EVERY MONTH, (Reported) Furosemide* (Lasix*), 20 MG ORAL DAILY, (Reported) Heparin Sod (Porcine) (Heparin Sodium*), 5,000 UNITS SUBQ EVERY 12 HOURS, (Reported) Lactulose (Lactulose*), 30 ML ORAL Q12HR, (Reported) Levothyroxine Sodium* (Synthorid*), 150 MCG ORAL DAILY, (Reported) Memantine Hcl* (Namenda*), 5 MG ORAL TWICE A DAY, (Reported) Mirtazapine* (Remeron*), 15 MG ORAL BEDTIME, (Reported) Prednisone (Prednisone), 5 MG PO DAILY, (Reported) Quetiapine Fumarate* (Quetiapine Fumarate*), 50 MG ORAL Q12H, (Reported) Scheduled PRN Acetaminophen* (Acetaminophen 325MG Tablet*), 650 MG ORAL Q4H PRN for Pain Scale (3-5), (Reported) Acetaminophen* (Acetaminophen Extra Strength*), 1,000 MG ORAL Q4HR PRN for Moderate Breakthru Pain (5-7), (Reported) Bisacodyl (Bisacodyl), 10 MG RC DAILY PRN for Constipation, (Reported) Ipratropium [place] 0.5MG/2.5ML (Ipratropium [place] 0.5MG/2.5ML), 0.5 MG HHN DAILY PRN for Shortness of Breath, (Reported) Magnesium Hydroxide* (Milk Of Magnesia*), 30 ML ORAL QHS PRN for Constipation, (Reported) Miscellaneous Medications Cranberry Fruit Concentrate (Cranberry), 900 MG PO, (Reported) Discontinued Medications Ascorbic Acid* (Ascorbic Acid*), 1,000 MG ORAL DAILY, (Reported) Discontinued Reason: Prescription changed Aspirin Ec* (Aspirin Ec*), 81 MG ORAL DAILY, (Reported) Discontinued Reason: Prescription changed Atorvastatin Calcium* (Atorvastatin Calcium*), 10 MG ORAL BEDTIME, (Reported) Discontinued Reason: Prescription changed Objective Data Height (Feet): 5 Height (Inches): 3.00 Weight (Pounds): 170 Additional Comments: waxing and waning consciousness. Disoriented. Mood is neutral to agitation. Affect is flat. Thought process, there is paucity of thought process. Thought content, no suicidal or homicidal ideation. Cognition is impaired. Insight and judgment is impaired. ASSESSMENT: [place] I Acute toxic encephalopathy. Schizophrenia. [place] II Deferred. [place] III COVID-19. [place] IV Low. [place] V 20 PLAN: 1. Discontinue the IV Haldol. 2. Start the patient on Haldol IM. 3. The patient benefits from bilateral soft restraints. 4. Provide the patient with reality orientation. 5. Discussed with the nurse. Kiana Hernandez MD May 12, 2020 18:23
--- NOTE | 2020-05-12 18:29 | Consultation ---
DATE OF CONSULTATION: 05/12/2020 INFECTIOUS DISEASE CONSULTATION CONSULTING PHYSICIAN: Lei Chan MD PRIMARY ATTENDING: Dani Perera MD REASON FOR CONSULT: COVID-19 pneumonia. HISTORY OF PRESENT ILLNESS: This is an 79-year-old female who is a senior care resident admitted yesterday because of hypoxemia. Patient has history of COPD, had multiple admissions to [facility] before. Patient was intubated in the ER, transferred to ICU. Currently is on dopamine and Levophed. PAST MEDICAL HISTORY: COPD, admission in June, July, and December of 2019, disorder, diastolic CHF, dyslipidemia, obstructive sleep apnea, dementia, Parkinson disease, mitral valve regurgitation, hypothyroidism, anemia. Had MRSA carrier state in the previous admission. ALLERGIES: No known drug allergies. MEDICATIONS: Azithromycin, ceftriaxone, dexamethasone, dopamine, norepinephrine, . SOCIAL HISTORY: penitentiary resident. Has a guardian. No history obtainable by the patient. PHYSICAL EXAMINATION: VITAL SIGNS: No fever. Since admission, temperature is 98.2, heart rate is 70, blood pressure 130/35. GENERAL APPEARANCE: Obese. HEAD AND NECK: Orally intubated. Has NG tube. HEART: Normal rate. Has right femoral line. LUNGS: Decreased sounds bilaterally on ventilator. ABDOMEN: Soft. EXTREMITIES: No significant edema. Sequential compression device of legs. NEUROLOGIC: Unresponsive. LABORATORY AND DIAGNOSTIC DATA: WBC 5.8, hemoglobin 9.1, hematocrit 25.3, platelets is 169. Sodium 138, potassium 3.8, chloride 102, bicarb 24, BUN 47, creatinine 1.3. Lactic acid is 6.2. Blood gas showed pH of 7.317 at the time of admission, pCO2 of 50.5 decreased to 37.2. COVID-19 test is positive. Chest x-ray showed bilateral infiltrate, multifocal pneumonia, and cardiomegaly. IMPRESSION: COVID-19 disease, acute respiratory failure, COPD, diastolic CHF, mitral valve regurgitation, anemia, Parkinson disease, schizoaffective disorder, dementia, obstructive sleep apnea, hypothyroidism. RECOMMENDATION: Continue with the dexamethasone, ceftriaxone, and azithromycin. Try to obtain permission from patient's guardian to start on remdesivir. At the end of my exam, I thank Dr. Perera for involving me in the care of this patient. Lei Chan M.D. DR: MELISSA JOB#: [id number] CC:
--- NOTE | 2020-05-12 21:59 | History and Physical Report ---
DATE OF ADMISSION: 05/11/2020 HISTORY OF PRESENT ILLNESS: Patient came in, found to have COVID positive, was intubated by the emergency room physician. Patient was lethargic, was also started on pressors. Unable to get any history. Patient has history of paranoid schizophrenia, tendency to refuse medications, major tendency to refuse medications, major schizophrenic patient. Patient has history of CHF and COPD. She was brought in initially for hypoxia. Has been noncompliant with medications. Patient was intubated in the emergency room due to lethargy. Unable to protect the airway according to the ER doctor. Came via paramedics and is admitted for COVID positive with pneumonia, hypoxia, CHF, COPD. PAST MEDICAL HISTORY: CHF, COPD, paranoid schizophrenia, hypertension, dyslipidemia, constipation, GERD, hypothyroidism, organic brain syndrome, depression. PAST SURGICAL HISTORY: Unable to obtain. SOCIAL HISTORY: Has history of smoking. Denies any alcohol or illicit drug use in the past. Comes from a senior living. FAMILY HISTORY: Noncontributory. REVIEW OF SYSTEMS: Unable to obtain, nonverbal, intubated at this point. MEDICATIONS: Seroquel, mirtazapine, Namenda, Levoxyl, Lasix, Bisacodyl, Lipitor, aspirin, vitamin C. ALLERGIES: No known allergies. PHYSICAL EXAMINATION: VITAL SIGNS: Temperature is not recorded, pulse is 65, blood pressure 132/74. HEENT: PERRLA. CHEST: Bibasilar rhonchi. CARDIOVASCULAR: Bradycardic. No murmurs. GASTROINTESTINAL: Soft. Positive bowel sounds. No organomegaly. EXTREMITIES: 1+ edema. NEUROLOGIC: Patient is lethargic, sedated, intubated. Unable to get neurological exam. Chest x-ray shows bilateral infiltrates. LABORATORY DATA: WBC of 5.3, hemoglobin of 9.4, platelets of 155. Sodium 138, potassium 3.8, BUN of 47, creatinine 1.3, glucose of 146. ASSESSMENT AND PLAN: Respiratory failure, COVID positive pneumonia, intubated, hypoxia, CHF, COPD. I have asked Dr. Ochoa, Dr. Davies, Dr. Sincere Myers, Dr. Lei Chan, Dr. Hernandez to see the patient for the above-mentioned abnormal imaging, abnormal symptoms, and abnormal laboratory findings. Antibiotics per Dr. Lei Chan. Patient is in COVID positive isolation room. Dani Perera M.D. DR: MAYCO JOB#: [id number] CC:
[2020-05-13] VITALS (46 sets, daily range): BP systolic 74–130; BP diastolic 31–53
[2020-05-13] MEDS: Norepinephrine 4mg/NS Premix 250 ML IV SCH ×2 (01:00→23:48)
[2020-05-13] MEDS: dexAMETHasone 10mg/ml Inj IV SCH (08:23)
[2020-05-13] MEDS: DOPamine 400mg/250ml 250 ML IV SCH ×2 (08:35→21:25)
--- NOTE | 2020-05-13 09:40 | Nephrology Progress Note ---
Assessment/Plan Problem List: (1) Renal failure (ARF), acute on chronic (2) Hypercapnic respiratory failure (3) CHF exacerbation Assessment Azotemia/renal failure Acute respiratory failure most likely secondary to CHF, on mechanical ventilation History of COPD Hypertension Hyperlipemia Schizophrenia/psychosis Plan Patient seen in ICU. Discussed with RN. Today's labs pending. Patient remains on 6 mics of dopamine. Pulmonary support Monitor intake and output Monitor electrolytes Continue per consultants Per orders Subjective ROS Limited/Unobtainable: Yes Objective Objective Last 24 Hour Vital Signs Date Time Temp Pulse Resp B/P (MAP) Pulse Ox O2 Delivery O2 Flow Rate FiO2 05/13/20 08:35 117/36 05/13/20 08:30 66 18 117/36 (63) 95 05/13/20 08:00 120/32 05/13/20 08:00 60 05/13/20 08:00 99.8 64 18 119/35 (63) 96 05/13/20 07:30 74 18 126/37 (66) 96 05/13/20 07:14 70 18 60 05/13/20 07:00 63 18 115/35 (61) 96 05/13/20 07:00 111/60 05/13/20 06:00 51 18 05/13/20 06:00 115/36 05/13/20 06:00 63 18 115/35 (61) 96 05/13/20 05:30 69 18 122/34 (63) 97 05/13/20 05:00 109/33 05/13/20 05:00 63 18 109/33 (58) 95 05/13/20 04:30 65 18 114/34 (60) 95 05/13/20 04:00 Mechanical Ventilator 05/13/20 04:00 62 18 112/31 (58) 95 05/13/20 04:00 112/31 05/13/20 04:00 50 05/13/20 04:00 66 05/13/20 03:30 65 18 115/35 (61) 95 05/13/20 03:00 67 18 117/35 (62) 96 05/13/20 03:00 115/36 05/13/20 02:47 72 18 60 05/13/20 02:30 66 18 111/35 (60) 95 05/13/20 02:00 109/33 05/13/20 02:00 65 18 109/33 (58) 94 05/13/20 01:30 67 18 107/34 (58) 95 05/13/20 01:00 110/34 05/13/20 01:00 69 17 109/35 (59) 95 05/13/20 00:30 69 18 116/35 (62) 97 05/13/20 00:00 50 05/13/20 00:00 71 05/13/20 00:00 Mechanical Ventilator 05/13/20 00:00 123/34 05/13/20 00:00 98.0 103 19 128/45 (72) 98 05/12/20 23:30 64 19 94/33 (53) 100 05/12/20 23:00 66 18 89/34 (52) 99 05/12/20 23:00 90/33 05/12/20 22:36 67 18 60 05/12/20 22:30 68 18 91/34 (53) 98 05/12/20 22:00 66 18 111/34 (59) 98 05/12/20 22:00 92/35 05/12/20 21:30 70 18 98/34 (55) 97 05/12/20 21:28 96/36 05/12/20 21:00 111/34 05/12/20 21:00 69 18 92/37 (55) 97 05/12/20 20:30 63 18 116/34 (61) 97 05/12/20 20:15 65 18 122/36 (64) 98 05/12/20 20:00 97.8 64 18 121/34 (63) 97 05/12/20 20:00 50 05/12/20 20:00 121/32 05/12/20 20:00 71 05/12/20 20:00 Mechanical Ventilator 05/12/20 19:00 63 18 123/34 (63) 96 05/12/20 19:00 123/34 05/12/20 18:32 63 18 60 05/12/20 18:00 122/34 05/12/20 18:00 65 17 124/35 (64) 96 05/12/20 17:30 64 17 121/32 (61) 96 05/12/20 17:15 70 19 121/34 (63) 97 05/12/20 17:00 118/42 05/12/20 17:00 79 19 118/42 (67) 99 05/12/20 16:45 59 18 117/30 (59) 95 05/12/20 16:30 99.2 59 18 118/30 (59) 95 05/12/20 16:15 59 18 118/32 (60) 97 05/12/20 16:00 67 19 115/57 (76) 96 05/12/20 16:00 115/57 05/12/20 16:00 Mechanical Ventilator 05/12/20 15:56 59 05/12/20 15:30 58 18 116/30 (58) 93 05/12/20 15:15 60 18 111/27 (55) 94 05/12/20 15:15 67 19 60 05/12/20 15:00 111/27 05/12/20 15:00 59 18 111/27 (55) 93 05/12/20 14:45 60 18 109/26 (53) 92 05/12/20 14:30 61 18 111/30 (57) 92 05/12/20 14:20 Mechanical Ventilator 05/12/20 14:15 130/35 05/12/20 14:15 70 18 130/35 (66) 96 05/12/20 14:00 62 18 125/31 (62) 93 05/12/20 14:00 122/78 05/12/20 13:30 62 18 129/31 (63) 92 05/12/20 13:00 131/33 05/12/20 13:00 65 18 131/33 (65) 92 05/12/20 12:30 64 18 132/31 (64) 92 05/12/20 12:00 98.2 64 18 132/31 (64) 93 05/12/20 12:00 134/37 05/12/20 12:00 Mechanical Ventilator 05/12/20 11:42 71 05/12/20 11:30 74 18 136/34 (68) 92 05/12/20 11:20 69 18 60 05/12/20 11:00 79 18 142/38 (72) 93 05/12/20 11:00 138/35 05/12/20 10:45 82 18 134/33 (66) 93 05/12/20 10:45 142/38 05/12/20 10:30 57 18 134/33 (66) 91 05/12/20 10:30 57 18 134/33 (66) 91 05/12/20 10:30 99/28 05/12/20 10:15 99/28 05/12/20 10:15 65 20 93/29 (50) 97 05/12/20 10:01 117/38 05/12/20 10:00 50 16 109/29 (55) 97 Intake and Output 05/12/20 05/13/20 19:00 07:00 Intake Total 620.911 ml 245.699 ml Output Total 1330 ml 1650 ml Balance -709.089 ml -1404.301 ml IV Total 620.911 ml 245.699 ml Output Urine Total 1330 ml 1650 ml No blood drawn yet Height (Feet): 5 Height (Inches): 3.00 Weight (Pounds): 170 General Appearance: no apparent distress EENT: other - Intubated on ventilator Cardiovascular: normal rate Respiratory/Chest: decreased breath sounds Abdomen: soft Bryan Ochoa MD May 13, 2020 09:40
[2020-05-13 11:02] LABS: BASOPHILS % (AUTO) 0.3 % (0.0-2.0); HEMATOCRIT 30.5 % (37.0-47.0); HEMOGLOBIN 10.3 G/DL (12.0-16.0); LYMPHOCYTES % (AUTO) 13.4 % (20.0-45.0); MEAN CORPUSCULAR VOLUME 94 FL (80-99); MONOCYTES % (AUTO) 4.3 % (1.0-10.0); PLATELET COUNT 155 K/UL (150-450); RED BLOOD COUNT 3.24 M/UL (4.20-5.40); RED CELL DISTRIBUTION WIDTH 13.6 % (11.6-14.8); WHITE BLOOD COUNT 6.2 K/UL (4.8-10.8)
[2020-05-13 11:26] LABS: ALBUMIN 3.1 G/DL (3.4-5.0); ALBUMIN/GLOBULIN RATIO 0.7 (1.0-2.7); BILIRUBIN,TOTAL 0.8 MG/DL (0.2-1.0); CALCIUM 8.2 MG/DL (8.5-10.1); CREATININE 1.3 MG/DL (0.55-1.30); PHOSPHORUS 2.7 MG/DL (2.5-4.9); POTASSIUM 3.6 MMOL/L (3.5-5.1)
--- NOTE | 2020-05-13 12:18 | Cardiac Electrophysiology PN ---
Assessment/Plan Assessment/Plan 1. Shortness of breath due to Covid PNA Intubated on the Vent. 2. History of COPD. 3. Hypotension. On Dopamine 6 mcg . EF 55% 4. Bradycardia on Dopamine 5. Schizophrenia and psychosis. Subjective Subjective Developed respiratory failure and intubated in ICU now. Covid is positive. On 60% Fio2 and 6 Mcg of Dopamine as was bradycardic Objective Last 24 Hour Vital Signs Date Time Temp Pulse Resp B/P (MAP) Pulse Ox O2 Delivery O2 Flow Rate FiO2 05/13/20 12:00 Mechanical Ventilator 05/13/20 12:00 64 18 119/33 (61) 97 05/13/20 12:00 123/36 05/13/20 12:00 73 05/13/20 11:54 60 05/13/20 11:30 65 18 124/35 (64) 97 05/13/20 11:02 72 18 60 05/13/20 11:00 119/36 05/13/20 11:00 69 18 124/35 (64) 96 05/13/20 10:30 65 18 123/34 (63) 96 05/13/20 10:00 65 18 123/34 (63) 96 05/13/20 10:00 123/34 05/13/20 09:30 72 18 118/38 (64) 95 05/13/20 09:00 66 18 122/34 (63) 95 05/13/20 09:00 122/34 05/13/20 08:35 117/36 05/13/20 08:30 66 18 117/36 (63) 95 05/13/20 08:00 Mechanical Ventilator 05/13/20 08:00 120/32 05/13/20 08:00 74 05/13/20 08:00 60 05/13/20 08:00 99.8 64 18 119/35 (63) 96 05/13/20 07:30 74 18 126/37 (66) 96 05/13/20 07:14 70 18 60 05/13/20 07:00 63 18 115/35 (61) 96 05/13/20 07:00 111/60 05/13/20 06:00 51 18 05/13/20 06:00 115/36 05/13/20 06:00 63 18 115/35 (61) 96 05/13/20 05:30 69 18 122/34 (63) 97 05/13/20 05:00 109/33 05/13/20 05:00 63 18 109/33 (58) 95 05/13/20 04:30 65 18 114/34 (60) 95 05/13/20 04:00 Mechanical Ventilator 05/13/20 04:00 62 18 112/31 (58) 95 05/13/20 04:00 112/31 05/13/20 04:00 50 05/13/20 04:00 66 05/13/20 03:30 65 18 115/35 (61) 95 05/13/20 03:00 67 18 117/35 (62) 96 05/13/20 03:00 115/36 05/13/20 02:47 72 18 60 05/13/20 02:30 66 18 111/35 (60) 95 05/13/20 02:00 109/33 05/13/20 02:00 65 18 109/33 (58) 94 05/13/20 01:30 67 18 107/34 (58) 95 05/13/20 01:00 110/34 05/13/20 01:00 69 17 109/35 (59) 95 05/13/20 00:30 69 18 116/35 (62) 97 05/13/20 00:00 50 05/13/20 00:00 71 05/13/20 00:00 Mechanical Ventilator 05/13/20 00:00 123/34 05/13/20 00:00 98.0 103 19 128/45 (72) 98 05/12/20 23:30 64 19 94/33 (53) 100 05/12/20 23:00 66 18 89/34 (52) 99 05/12/20 23:00 90/33 05/12/20 22:36 67 18 60 05/12/20 22:30 68 18 91/34 (53) 98 05/12/20 22:00 66 18 111/34 (59) 98 05/12/20 22:00 92/35 05/12/20 21:30 70 18 98/34 (55) 97 05/12/20 21:28 96/36 05/12/20 21:00 111/34 05/12/20 21:00 69 18 92/37 (55) 97 05/12/20 20:30 63 18 116/34 (61) 97 05/12/20 20:15 65 18 122/36 (64) 98 05/12/20 20:00 97.8 64 18 121/34 (63) 97 05/12/20 20:00 50 05/12/20 20:00 121/32 05/12/20 20:00 71 05/12/20 20:00 Mechanical Ventilator 05/12/20 19:00 63 18 123/34 (63) 96 05/12/20 19:00 123/34 05/12/20 18:32 63 18 60 05/12/20 18:00 122/34 05/12/20 18:00 65 17 124/35 (64) 96 05/12/20 17:30 64 17 121/32 (61) 96 05/12/20 17:15 70 19 121/34 (63) 97 05/12/20 17:00 118/42 05/12/20 17:00 79 19 118/42 (67) 99 05/12/20 16:45 59 18 117/30 (59) 95 05/12/20 16:30 99.2 59 18 118/30 (59) 95 05/12/20 16:15 59 18 118/32 (60) 97 05/12/20 16:00 67 19 115/57 (76) 96 05/12/20 16:00 115/57 05/12/20 16:00 Mechanical Ventilator 05/12/20 15:56 59 05/12/20 15:30 58 18 116/30 (58) 93 05/12/20 15:15 60 18 111/27 (55) 94 05/12/20 15:15 67 19 60 05/12/20 15:00 111/27 05/12/20 15:00 59 18 111/27 (55) 93 05/12/20 14:45 60 18 109/26 (53) 92 05/12/20 14:30 61 18 111/30 (57) 92 05/12/20 14:20 Mechanical Ventilator 05/12/20 14:15 130/35 05/12/20 14:15 70 18 130/35 (66) 96 05/12/20 14:00 62 18 125/31 (62) 93 05/12/20 14:00 122/78 05/12/20 13:30 62 18 129/31 (63) 92 05/12/20 13:00 131/33 05/12/20 13:00 65 18 131/33 (65) 92 05/12/20 12:30 64 18 132/31 (64) 92 Intake and Output 05/12/20 05/13/20 19:00 07:00 Intake Total 620.911 ml 245.699 ml Output Total 1330 ml 1650 ml Balance -709.089 ml -1404.301 ml IV Total 620.911 ml 245.699 ml Output Urine Total 1330 ml 1650 ml Laboratory Tests Test 05/13/20 09:45 05/13/20 10:36 White Blood Count 6.2 K/UL (4.8-10.8) Red Blood Count 3.24 M/UL (4.20-5.40) L Hemoglobin 10.3 G/DL (12.0-16.0) L Hematocrit 30.5 % (37.0-47.0) L Mean Corpuscular Volume 94 FL (80-99) Mean Corpuscular Hemoglobin 31.8 PG (27.0-31.0) H Mean Corpuscular Hemoglobin Concent 33.8 G/DL (32.0-36.0) Red Cell Distribution Width 13.6 % (11.6-14.8) Platelet Count 155 K/UL (150-450) Mean Platelet Volume 7.1 FL (6.5-10.1) Neutrophils (%) (Auto) 82.0 % (45.0-75.0) H Lymphocytes (%) (Auto) 13.4 % (20.0-45.0) L Monocytes (%) (Auto) 4.3 % (1.0-10.0) Eosinophils (%) (Auto) 0.0 % (0.0-3.0) Basophils (%) (Auto) 0.3 % (0.0-2.0) Sodium Level 141 MMOL/L (136-145) Potassium Level 3.6 MMOL/L (3.5-5.1) Chloride Level 104 MMOL/L (98-107) Carbon Dioxide Level 27 MMOL/L (21-32) Anion Gap 10 mmol/L (5-15) Blood Urea Nitrogen 40 mg/dL (7-18) H Creatinine 1.3 MG/DL (0.55-1.30) Estimat Glomerular Filtration Rate 39.4 mL/min (>60) Glucose Level 116 MG/DL (74-106) H Calcium Level 8.2 MG/DL (8.5-10.1) L Phosphorus Level 2.7 MG/DL (2.5-4.9) Magnesium Level 2.0 MG/DL (1.8-2.4) Total Bilirubin 0.8 MG/DL (0.2-1.0) Aspartate Amino Transf (AST/SGOT) 25 U/L (15-37) Alanine Aminotransferase (ALT/SGPT) 10 U/L (12-78) L Alkaline Phosphatase 54 U/L (46-116) Total Protein 7.5 G/DL (6.4-8.2) Albumin 3.1 G/DL (3.4-5.0) L Globulin 4.4 g/dL Albumin/Globulin Ratio 0.7 (1.0-2.7) L Arterial Blood pH 7.494 (7.350-7.450) Arterial Blood Partial Pressure CO2 33.8 mmHg (35.0-45.0) L Arterial Blood Partial Pressure O2 67.7 mmHg (75.0-100.0) L Arterial Blood HCO3 25.4 mmol/L (22.0-26.0) Arterial Blood Oxygen Saturation 93.0 % (95-100) L Arterial Blood Base Excess 2.3 (-2-2) H Raphael Test Positive Microbiology Date/Time Source Procedure Growth Status 05/11/20 17:05 Blood Blood Culture - Preliminary NO GROWTH AFTER 24 HOURS Resulted 05/11/20 17:00 Urine,Clean Catch Urine Culture - Final Strep Agalactiae Group B Mixed Gram Positive Organism Complete 05/11/20 16:50 Blood Blood Culture - Preliminary NO GROWTH AFTER 24 HOURS Resulted 05/11/20 16:30 Nasopharynx SARS-CoV-2 RdRp Gene Assay - Final Complete Objective HEAD AND NECK: positive JVD.Orally intubated LUNGS: Decreased breath sounds. CARDIOVASCULAR: Regular S1 and S2 with no gallop. ABDOMEN: Obese. EXTREMITIES: Bilateral 2+ pitting edema. Cameron Davies MD May 13, 2020 12:18
[2020-05-13] MEDS: cefTRIAXone 1 GM in D5W 55 ML IVPB SCH (15:45)
--- NOTE | 2020-05-13 15:47 | Infectious Diseases Prog Note ---
Assessment/Plan Assessment/Plan IMPRESSION: COVID-19 disease, Acute respiratory failure, COPD, Diastolic CHF, Mitral valve regurgitation, Anemia, Parkinson disease, schizoaffective disorder, Dementia, Obstructive sleep apnea, Hypothyroidism. RECOMMENDATION: Continue dexamethasone, ceftriaxone, and azithromycin. Suggest Remdesivir Subjective ROS Limited/Unobtainable: Yes Allergies: Coded Allergies: No Known Allergies (Unverified , 05/11/20) Objective Last 24 Hour Vital Signs Date Time Temp Pulse Resp B/P (MAP) Pulse Ox O2 Delivery O2 Flow Rate FiO2 05/13/20 15:00 123/37 05/13/20 15:00 65 16 120/35 (63) 98 05/13/20 14:30 64 16 120/35 (63) 95 05/13/20 14:00 64 16 120/33 (62) 94 05/13/20 14:00 120/33 05/13/20 13:30 65 16 122/38 (66) 97 05/13/20 13:00 98.8 73 16 125/40 (68) 97 05/13/20 13:00 124/40 05/13/20 12:30 64 14 117/47 (70) 94 05/13/20 12:00 Mechanical Ventilator 05/13/20 12:00 64 18 119/33 (61) 97 05/13/20 12:00 123/36 05/13/20 12:00 73 05/13/20 11:54 60 05/13/20 11:30 65 18 124/35 (64) 97 05/13/20 11:02 72 18 60 05/13/20 11:00 119/36 05/13/20 11:00 69 18 124/35 (64) 96 05/13/20 10:30 65 18 123/34 (63) 96 05/13/20 10:00 65 18 123/34 (63) 96 05/13/20 10:00 123/34 05/13/20 09:30 72 18 118/38 (64) 95 05/13/20 09:00 66 18 122/34 (63) 95 05/13/20 09:00 122/34 05/13/20 08:35 117/36 05/13/20 08:30 66 18 117/36 (63) 95 05/13/20 08:00 Mechanical Ventilator 05/13/20 08:00 120/32 05/13/20 08:00 74 05/13/20 08:00 60 05/13/20 08:00 99.8 64 18 119/35 (63) 96 05/13/20 07:30 74 18 126/37 (66) 96 05/13/20 07:14 70 18 60 05/13/20 07:00 63 18 115/35 (61) 96 05/13/20 07:00 111/60 05/13/20 06:00 51 18 05/13/20 06:00 115/36 05/13/20 06:00 63 18 115/35 (61) 96 05/13/20 05:30 69 18 122/34 (63) 97 05/13/20 05:00 109/33 05/13/20 05:00 63 18 109/33 (58) 95 05/13/20 04:30 65 18 114/34 (60) 95 05/13/20 04:00 Mechanical Ventilator 05/13/20 04:00 62 18 112/31 (58) 95 05/13/20 04:00 112/31 05/13/20 04:00 50 05/13/20 04:00 66 05/13/20 03:30 65 18 115/35 (61) 95 05/13/20 03:00 67 18 117/35 (62) 96 05/13/20 03:00 115/36 05/13/20 02:47 72 18 60 05/13/20 02:30 66 18 111/35 (60) 95 05/13/20 02:00 109/33 05/13/20 02:00 65 18 109/33 (58) 94 05/13/20 01:30 67 18 107/34 (58) 95 05/13/20 01:00 110/34 05/13/20 01:00 69 17 109/35 (59) 95 05/13/20 00:30 69 18 116/35 (62) 97 05/13/20 00:00 50 05/13/20 00:00 71 05/13/20 00:00 Mechanical Ventilator 05/13/20 00:00 123/34 05/13/20 00:00 98.0 103 19 128/45 (72) 98 05/12/20 23:30 64 19 94/33 (53) 100 05/12/20 23:00 66 18 89/34 (52) 99 05/12/20 23:00 90/33 05/12/20 22:36 67 18 60 05/12/20 22:30 68 18 91/34 (53) 98 05/12/20 22:00 66 18 111/34 (59) 98 05/12/20 22:00 92/35 05/12/20 21:30 70 18 98/34 (55) 97 05/12/20 21:28 96/36 05/12/20 21:00 111/34 05/12/20 21:00 69 18 92/37 (55) 97 05/12/20 20:30 63 18 116/34 (61) 97 05/12/20 20:15 65 18 122/36 (64) 98 05/12/20 20:00 97.8 64 18 121/34 (63) 97 05/12/20 20:00 50 05/12/20 20:00 121/32 05/12/20 20:00 71 05/12/20 20:00 Mechanical Ventilator 05/12/20 19:00 63 18 123/34 (63) 96 05/12/20 19:00 123/34 05/12/20 18:32 63 18 60 05/12/20 18:00 122/34 05/12/20 18:00 65 17 124/35 (64) 96 05/12/20 17:30 64 17 121/32 (61) 96 05/12/20 17:15 70 19 121/34 (63) 97 05/12/20 17:00 118/42 05/12/20 17:00 79 19 118/42 (67) 99 05/12/20 16:45 59 18 117/30 (59) 95 05/12/20 16:30 99.2 59 18 118/30 (59) 95 05/12/20 16:15 59 18 118/32 (60) 97 05/12/20 16:00 67 19 115/57 (76) 96 05/12/20 16:00 115/57 05/12/20 16:00 Mechanical Ventilator 05/12/20 15:56 59 Height (Feet): 5 Height (Inches): 3.00 Weight (Pounds): 170 HEENT: other - orally intubated Respiratory/Chest: other - on ventilator, FIO2=60% Cardiovascular: normal rate Abdomen: soft, non tender, other - NG tube Extremities: no edema Neurologic/Psychiatric: disoriented, other Microbiology Date/Time Source Procedure Growth Status 05/11/20 17:05 Blood Blood Culture - Preliminary NO GROWTH AFTER 24 HOURS Resulted 05/11/20 17:00 Urine,Clean Catch Urine Culture - Final Strep Agalactiae Group B Mixed Gram Positive Organism Complete 05/11/20 16:50 Blood Blood Culture - Preliminary NO GROWTH AFTER 24 HOURS Resulted 05/11/20 16:30 Nasopharynx SARS-CoV-2 RdRp Gene Assay - Final Complete Laboratory Tests Test 05/13/20 09:45 05/13/20 10:36 White Blood Count 6.2 K/UL (4.8-10.8) Red Blood Count 3.24 M/UL (4.20-5.40) L Hemoglobin 10.3 G/DL (12.0-16.0) L Hematocrit 30.5 % (37.0-47.0) L Mean Corpuscular Volume 94 FL (80-99) Mean Corpuscular Hemoglobin 31.8 PG (27.0-31.0) H Mean Corpuscular Hemoglobin Concent 33.8 G/DL (32.0-36.0) Red Cell Distribution Width 13.6 % (11.6-14.8) Platelet Count 155 K/UL (150-450) Mean Platelet Volume 7.1 FL (6.5-10.1) Neutrophils (%) (Auto) 82.0 % (45.0-75.0) H Lymphocytes (%) (Auto) 13.4 % (20.0-45.0) L Monocytes (%) (Auto) 4.3 % (1.0-10.0) Eosinophils (%) (Auto) 0.0 % (0.0-3.0) Basophils (%) (Auto) 0.3 % (0.0-2.0) Sodium Level 141 MMOL/L (136-145) Potassium Level 3.6 MMOL/L (3.5-5.1) Chloride Level 104 MMOL/L (98-107) Carbon Dioxide Level 27 MMOL/L (21-32) Anion Gap 10 mmol/L (5-15) Blood Urea Nitrogen 40 mg/dL (7-18) H Creatinine 1.3 MG/DL (0.55-1.30) Estimat Glomerular Filtration Rate 39.4 mL/min (>60) Glucose Level 116 MG/DL (74-106) H Calcium Level 8.2 MG/DL (8.5-10.1) L Phosphorus Level 2.7 MG/DL (2.5-4.9) Magnesium Level 2.0 MG/DL (1.8-2.4) Total Bilirubin 0.8 MG/DL (0.2-1.0) Aspartate Amino Transf (AST/SGOT) 25 U/L (15-37) Alanine Aminotransferase (ALT/SGPT) 10 U/L (12-78) L Alkaline Phosphatase 54 U/L (46-116) Total Protein 7.5 G/DL (6.4-8.2) Albumin 3.1 G/DL (3.4-5.0) L Globulin 4.4 g/dL Albumin/Globulin Ratio 0.7 (1.0-2.7) L Arterial Blood pH 7.494 (7.350-7.450) Arterial Blood Partial Pressure CO2 33.8 mmHg (35.0-45.0) L Arterial Blood Partial Pressure O2 67.7 mmHg (75.0-100.0) L Arterial Blood HCO3 25.4 mmol/L (22.0-26.0) Arterial Blood Oxygen Saturation 93.0 % (95-100) L Arterial Blood Base Excess 2.3 (-2-2) H Rapahel Test Positive Current Medications Medications (Trade) Dose Ordered Sig/Angie Route PRN Reason Start Time Stop Time Status Last Admin Dose Admin Azithromycin 250 mg/Dextrose 275 ml @ 275 mls/hr Q24HRS IV 05/12/20 17:00 05/17/20 16:59 05/12/20 16:44 Ceftriaxone Sodium 1 gm/ Dextrose 55 ml @ 110 mls/hr Q24H IVPB 05/12/20 16:00 05/19/20 15:59 05/12/20 16:44 Clonidine HCl (Catapres Tab) 0.1 mg Q4H PRN ORAL sbp>170 05/11/20 17:15 08/09/20 17:14 Dexamethasone Sodium Phosphate (Decadron 10mg/ ml Inj) 6 mg DAILY IV 05/12/20 15:45 05/21/20 15:44 05/13/20 08:23 Dopamine HCl/ Dextrose 250 ml @ 6.825 mls/ hr Q24H IV 05/12/20 09:45 05/15/20 09:42 05/13/20 08:35 Haloperidol Lactate 5 mg/ Dextrose 56 ml @ 224 mls/hr Q6H PRN IVPB Agitation 05/12/20 10:45 06/26/20 10:44 Levothyroxine Sodium (Synthroid) 50 mcg DAILY@0630 ORAL 05/14/20 06:30 06/13/20 06:29 Norepinephrine Bitartrate 250 ml @ 0 mls/hr Q24H IV 05/12/20 01:00 05/15/20 00:52 05/12/20 01:25 Lei Chan MD May 13, 2020 15:47
--- NOTE | 2020-05-13 16:03 | Pulmonology Progress Note ---
Subjective ROS Limited/Unobtainable: Yes Interval Events: Remains intubated Constitutional: Reports: no symptoms HEENT: Repors: no symptoms Respiratory: Reports: no symptoms Cardiovascular: Reports: no symptoms Gastrointestinal/Abdominal: Reports: no symptoms Genitourinary: Reports: no symptoms Allergies: Coded Allergies: No Known Allergies (Unverified , 05/11/20) Objective Last 24 Hour Vital Signs Date Time Temp Pulse Resp B/P (MAP) Pulse Ox O2 Delivery O2 Flow Rate FiO2 05/13/20 15:00 123/37 05/13/20 15:00 65 16 120/35 (63) 98 05/13/20 14:30 64 16 120/35 (63) 95 05/13/20 14:00 64 16 120/33 (62) 94 05/13/20 14:00 120/33 05/13/20 13:30 65 16 122/38 (66) 97 05/13/20 13:00 98.8 73 16 125/40 (68) 97 05/13/20 13:00 124/40 05/13/20 12:30 64 14 117/47 (70) 94 05/13/20 12:00 Mechanical Ventilator 05/13/20 12:00 64 18 119/33 (61) 97 05/13/20 12:00 123/36 05/13/20 12:00 73 05/13/20 11:54 60 05/13/20 11:30 65 18 124/35 (64) 97 05/13/20 11:02 72 18 60 05/13/20 11:00 119/36 05/13/20 11:00 69 18 124/35 (64) 96 05/13/20 10:30 65 18 123/34 (63) 96 05/13/20 10:00 65 18 123/34 (63) 96 05/13/20 10:00 123/34 05/13/20 09:30 72 18 118/38 (64) 95 05/13/20 09:00 66 18 122/34 (63) 95 05/13/20 09:00 122/34 05/13/20 08:35 117/36 05/13/20 08:30 66 18 117/36 (63) 95 05/13/20 08:00 Mechanical Ventilator 05/13/20 08:00 120/32 05/13/20 08:00 74 05/13/20 08:00 60 05/13/20 08:00 99.8 64 18 119/35 (63) 96 05/13/20 07:30 74 18 126/37 (66) 96 05/13/20 07:14 70 18 60 05/13/20 07:00 63 18 115/35 (61) 96 05/13/20 07:00 111/60 05/13/20 06:00 51 18 05/13/20 06:00 115/36 05/13/20 06:00 63 18 115/35 (61) 96 05/13/20 05:30 69 18 122/34 (63) 97 05/13/20 05:00 109/33 05/13/20 05:00 63 18 109/33 (58) 95 05/13/20 04:30 65 18 114/34 (60) 95 05/13/20 04:00 Mechanical Ventilator 05/13/20 04:00 62 18 112/31 (58) 95 05/13/20 04:00 112/31 05/13/20 04:00 50 05/13/20 04:00 66 05/13/20 03:30 65 18 115/35 (61) 95 05/13/20 03:00 67 18 117/35 (62) 96 05/13/20 03:00 115/36 05/13/20 02:47 72 18 60 05/13/20 02:30 66 18 111/35 (60) 95 05/13/20 02:00 109/33 05/13/20 02:00 65 18 109/33 (58) 94 05/13/20 01:30 67 18 107/34 (58) 95 05/13/20 01:00 110/34 05/13/20 01:00 69 17 109/35 (59) 95 05/13/20 00:30 69 18 116/35 (62) 97 05/13/20 00:00 50 05/13/20 00:00 71 05/13/20 00:00 Mechanical Ventilator 05/13/20 00:00 123/34 05/13/20 00:00 98.0 103 19 128/45 (72) 98 05/12/20 23:30 64 19 94/33 (53) 100 05/12/20 23:00 66 18 89/34 (52) 99 05/12/20 23:00 90/33 05/12/20 22:36 67 18 60 05/12/20 22:30 68 18 91/34 (53) 98 05/12/20 22:00 66 18 111/34 (59) 98 05/12/20 22:00 92/35 05/12/20 21:30 70 18 98/34 (55) 97 05/12/20 21:28 96/36 05/12/20 21:00 111/34 05/12/20 21:00 69 18 92/37 (55) 97 05/12/20 20:30 63 18 116/34 (61) 97 05/12/20 20:15 65 18 122/36 (64) 98 05/12/20 20:00 97.8 64 18 121/34 (63) 97 05/12/20 20:00 50 05/12/20 20:00 121/32 05/12/20 20:00 71 05/12/20 20:00 Mechanical Ventilator 05/12/20 19:00 63 18 123/34 (63) 96 05/12/20 19:00 123/34 05/12/20 18:32 63 18 60 05/12/20 18:00 122/34 05/12/20 18:00 65 17 124/35 (64) 96 05/12/20 17:30 64 17 121/32 (61) 96 05/12/20 17:15 70 19 121/34 (63) 97 05/12/20 17:00 118/42 05/12/20 17:00 79 19 118/42 (67) 99 05/12/20 16:45 59 18 117/30 (59) 95 05/12/20 16:30 99.2 59 18 118/30 (59) 95 05/12/20 16:15 59 18 118/32 (60) 97 05/12/20 16:00 67 19 115/57 (76) 96 05/12/20 16:00 115/57 05/12/20 16:00 Mechanical Ventilator Intake and Output 05/12/20 05/13/20 19:00 07:00 Intake Total 620.911 ml 245.699 ml Output Total 1330 ml 1650 ml Balance -709.089 ml -1404.301 ml IV Total 620.911 ml 245.699 ml Output Urine Total 1330 ml 1650 ml General Appearance: no acute distress HEENT: normocephalic Respiratory: decreased breath sounds, other - On ventilator, FiO2 60% Cardiovascular: JVD Abdomen: soft, non tender, other - obese, NG tube Extremities: other - b/l 2+ pitting edema Neurologic: disoriented Microbiology Date/Time Source Procedure Growth Status 05/11/20 17:05 Blood Blood Culture - Preliminary NO GROWTH AFTER 24 HOURS Resulted 05/11/20 17:00 Urine,Clean Catch Urine Culture - Final Strep Agalactiae Group B Mixed Gram Positive Organism Complete 05/11/20 16:50 Blood Blood Culture - Preliminary NO GROWTH AFTER 24 HOURS Resulted 05/11/20 16:30 Nasopharynx SARS-CoV-2 RdRp Gene Assay - Final Complete Laboratory Tests 05/13/20 09:45: White Blood Count 6.2, Red Blood Count 3.24L, Hemoglobin 10.3L, Hematocrit 30.5L , Mean Corpuscular Volume 94, Mean Corpuscular Hemoglobin 31.8H, Mean Corpuscular Hemoglobin Concent 33.8, Red Cell Distribution Width 13.6, Platelet Count 155, Mean Platelet Volume 7.1, Neutrophils (%) (Auto) 82.0H, Lymphocytes (%) (Auto) 13.4L, Monocytes (%) (Auto) 4.3, Eosinophils (%) (Auto) 0.0, Basophils (%) (Auto) 0.3, Sodium Level 141, Potassium Level 3.6, Chloride Level 104, Carbon Dioxide Level 27, Anion Gap 10, Blood Urea Nitrogen 40H, Creatinine 1.3, Estimat Glomerular Filtration Rate 39.4, Glucose Level 116H, Calcium Level 8.2L, Phosphorus Level 2.7, Magnesium Level 2.0, Total Bilirubin 0.8, Aspartate Amino Transf (AST/SGOT) 25, Alanine Aminotransferase (ALT/SGPT) 10L, Alkaline Phosphatase 54, Total Protein 7.5, Albumin 3.1L, Globulin 4.4, Albumin/Globulin Ratio 0.7L 05/13/20 10:36: Arterial Blood pH 7.494H, Arterial Blood Partial Pressure CO2 33.8L, Arterial Blood Partial Pressure O2 67.7L, Arterial Blood HCO3 25.4, Arterial Blood Oxygen Saturation 93.0L, Arterial Blood Base Excess 2.3H, Raphael Test Positive Current Medications Medications (Trade) Dose Ordered Sig/Angie Route PRN Reason Start Time Stop Time Status Last Admin Dose Admin Azithromycin 250 mg/Dextrose 275 ml @ 275 mls/hr Q24HRS IV 05/12/20 17:00 05/17/20 16:59 05/12/20 16:44 Ceftriaxone Sodium 1 gm/ Dextrose 55 ml @ 110 mls/hr Q24H IVPB 05/12/20 16:00 05/19/20 15:59 05/13/20 15:45 Clonidine HCl (Catapres Tab) 0.1 mg Q4H PRN ORAL sbp>170 05/11/20 17:15 08/09/20 17:14 Dexamethasone Sodium Phosphate (Decadron 10mg/ ml Inj) 6 mg DAILY IV 05/12/20 15:45 05/21/20 15:44 05/13/20 08:23 Dopamine HCl/ Dextrose 250 ml @ 6.825 mls/ hr Q24H IV 05/12/20 09:45 05/15/20 09:42 05/13/20 08:35 Haloperidol Lactate 5 mg/ Dextrose 56 ml @ 224 mls/hr Q6H PRN IVPB Agitation 05/12/20 10:45 06/26/20 10:44 Levothyroxine Sodium (Synthroid) 50 mcg DAILY@0630 ORAL 05/14/20 06:30 06/13/20 06:29 Norepinephrine Bitartrate 250 ml @ 0 mls/hr Q24H IV 05/12/20 01:00 05/15/20 00:52 05/12/20 01:25 Assessment/Plan Assessment/Plan 1. Bilateral COVID-19 multilobar pneumonia. - Pt orally intubated - Afebrile - Continue Azithromycin, Ceftriaxone, dexamethasone - Remdesivir initiated - defer to ID 2. Hx of COPD. 3. Schizophrenia/psychosis - On dopamine, haloperidol 4. Hypoxia. - FiO2 60% - Cont vent; AC mode 5. Anemia - Improving; hgb 9.1 -> 10.3 6. Azotemia/renal failure - UA: Positive leuk esterase, protein, RBC, WBC (05/11/2020) - BUN 47 -> 40 The care for this patient was discussed with my supervising physician Will begin weaning The history of Alcira Gonzalez has been reviewed and management options for her have been examined and discussed by Sincere Myers. I have personally examined and interviewed the patient. Time spent for this case was 31 minutes Trae Avilez May 13, 2020 16:03 Sincere Myers MD May 13, 2020 17:55
[2020-05-13] MEDS: Azithromycin 250 MG in D5W 275 ML IV SCH (17:09)
[2020-05-13] MEDS ORDERED: Loading Dose:Remdesivir 200mg/NS 210ml IV SCH ×2 (21:00)
--- NOTE | 2020-05-13 21:13 | General Progress Note ---
Subjective ROS Limited/Unobtainable: Yes Allergies: Coded Allergies: No Known Allergies (Unverified , 05/11/20) Objective Last 24 Hour Vital Signs Date Time Temp Pulse Resp B/P (MAP) Pulse Ox O2 Delivery O2 Flow Rate FiO2 05/13/20 20:30 63 14 110/47 (68) 95 05/13/20 20:00 76 05/13/20 20:00 110/47 05/13/20 20:00 Mechanical Ventilator 05/13/20 20:00 60 05/13/20 20:00 98.8 75 15 121/42 (68) 97 05/13/20 19:02 79 17 60 05/13/20 19:00 77 15 122/45 (70) 98 05/13/20 19:00 122/45 05/13/20 18:30 72 15 107/41 (63) 96 05/13/20 18:00 69 15 117/44 (68) 96 05/13/20 18:00 120/43 05/13/20 17:30 70 15 74/53 (60) 96 05/13/20 17:00 73 15 125/37 (66) 95 05/13/20 17:00 125/37 05/13/20 16:30 66 15 119/35 (63) 92 05/13/20 16:00 Mechanical Ventilator 05/13/20 16:00 60 05/13/20 16:00 98.5 63 15 122/36 (64) 96 05/13/20 16:00 122/22 05/13/20 15:30 71 15 123/39 (67) 96 05/13/20 15:29 73 15 60 05/13/20 15:22 63 05/13/20 15:00 123/37 05/13/20 15:00 65 16 120/35 (63) 98 05/13/20 14:30 64 16 120/35 (63) 95 05/13/20 14:00 64 16 120/33 (62) 94 05/13/20 14:00 120/33 05/13/20 13:30 65 16 122/38 (66) 97 05/13/20 13:00 98.8 73 16 125/40 (68) 97 05/13/20 13:00 124/40 05/13/20 12:30 64 14 117/47 (70) 94 05/13/20 12:00 Mechanical Ventilator 05/13/20 12:00 60 05/13/20 12:00 64 18 119/33 (61) 97 05/13/20 12:00 123/36 05/13/20 12:00 73 05/13/20 11:54 60 05/13/20 11:30 65 18 124/35 (64) 97 05/13/20 11:02 72 18 60 05/13/20 11:00 119/36 05/13/20 11:00 69 18 124/35 (64) 96 05/13/20 10:30 65 18 123/34 (63) 96 05/13/20 10:00 65 18 123/34 (63) 96 05/13/20 10:00 123/34 05/13/20 09:30 72 18 118/38 (64) 95 05/13/20 09:00 66 18 122/34 (63) 95 05/13/20 09:00 122/34 05/13/20 08:35 117/36 05/13/20 08:30 66 18 117/36 (63) 95 05/13/20 08:00 Mechanical Ventilator 05/13/20 08:00 120/32 05/13/20 08:00 74 05/13/20 08:00 60 05/13/20 08:00 99.8 64 18 119/35 (63) 96 05/13/20 07:30 74 18 126/37 (66) 96 05/13/20 07:14 70 18 60 05/13/20 07:00 63 18 115/35 (61) 96 05/13/20 07:00 111/60 05/13/20 06:00 51 18 05/13/20 06:00 115/36 05/13/20 06:00 63 18 115/35 (61) 96 05/13/20 05:30 69 18 122/34 (63) 97 05/13/20 05:00 109/33 05/13/20 05:00 63 18 109/33 (58) 95 05/13/20 04:30 65 18 114/34 (60) 95 05/13/20 04:00 Mechanical Ventilator 05/13/20 04:00 62 18 112/31 (58) 95 05/13/20 04:00 112/31 05/13/20 04:00 50 05/13/20 04:00 66 05/13/20 03:30 65 18 115/35 (61) 95 05/13/20 03:00 67 18 117/35 (62) 96 05/13/20 03:00 115/36 05/13/20 02:47 72 18 60 05/13/20 02:30 66 18 111/35 (60) 95 05/13/20 02:00 109/33 05/13/20 02:00 65 18 109/33 (58) 94 05/13/20 01:30 67 18 107/34 (58) 95 05/13/20 01:00 110/34 05/13/20 01:00 69 17 109/35 (59) 95 05/13/20 00:30 69 18 116/35 (62) 97 05/13/20 00:00 50 05/13/20 00:00 71 05/13/20 00:00 Mechanical Ventilator 05/13/20 00:00 123/34 05/13/20 00:00 98.0 103 19 128/45 (72) 98 05/12/20 23:30 64 19 94/33 (53) 100 05/12/20 23:00 66 18 89/34 (52) 99 05/12/20 23:00 90/33 05/12/20 22:36 67 18 60 05/12/20 22:30 68 18 91/34 (53) 98 05/12/20 22:00 66 18 111/34 (59) 98 05/12/20 22:00 92/35 05/12/20 21:30 70 18 98/34 (55) 97 05/12/20 21:28 96/36 Intake and Output 05/12/20 05/13/20 19:00 07:00 Intake Total 620.911 ml 245.699 ml Output Total 1330 ml 1650 ml Balance -709.089 ml -1404.301 ml IV Total 620.911 ml 245.699 ml Output Urine Total 1330 ml 1650 ml Laboratory Tests 05/13/20 09:45: White Blood Count 6.2, Red Blood Count 3.24L, Hemoglobin 10.3L, Hematocrit 30.5L , Mean Corpuscular Volume 94, Mean Corpuscular Hemoglobin 31.8H, Mean Corpuscular Hemoglobin Concent 33.8, Red Cell Distribution Width 13.6, Platelet Count 155, Mean Platelet Volume 7.1, Neutrophils (%) (Auto) 82.0H, Lymphocytes (%) (Auto) 13.4L, Monocytes (%) (Auto) 4.3, Eosinophils (%) (Auto) 0.0, Basophils (%) (Auto) 0.3, Sodium Level 141, Potassium Level 3.6, Chloride Level 104, Carbon Dioxide Level 27, Anion Gap 10, Blood Urea Nitrogen 40H, Creatinine 1.3, Estimat Glomerular Filtration Rate 39.4, Glucose Level 116H, Calcium Level 8.2L, Phosphorus Level 2.7, Magnesium Level 2.0, Total Bilirubin 0.8, Aspartate Amino Transf (AST/SGOT) 25, Alanine Aminotransferase (ALT/SGPT) 10L, Alkaline Phosphatase 54, Total Protein 7.5, Albumin 3.1L, Globulin 4.4, Albumin/Globulin Ratio 0.7L 05/13/20 10:36: Arterial Blood pH 7.494H, Arterial Blood Partial Pressure CO2 33.8L, Arterial Blood Partial Pressure O2 67.7L, Arterial Blood HCO3 25.4, Arterial Blood Oxygen Saturation 93.0L, Arterial Blood Base Excess 2.3H, Raphael Test Positive Height (Feet): 5 Height (Inches): 3.00 Weight (Pounds): 170 Assessment/Plan Problem List: (1) Anemia ICD Codes: D64.9 - Anemia, unspecified SNOMED: 152260579 (2) Hypercapnic respiratory failure ICD Codes: J96.92 - Respiratory failure, unspecified with hypercapnia SNOMED: 654900532 (3) COVID-19 ICD Codes: U07.1 - COVID-19 SNOMED: 129904423 (4) COPD (chronic obstructive pulmonary disease) ICD Codes: J44.9 - Chronic obstructive pulmonary disease, unspecified SNOMED: 69618819 (5) Psychosis ICD Codes: F29 - Unspecified psychosis not due to a substance or known physiological condition SNOMED: 81456271 (6) Hypoxia ICD Codes: R09.02 - Hypoxemia SNOMED: 993119531 (7) Renal failure (ARF), acute on chronic ICD Codes: N17.9 - Acute kidney failure, unspecified; N18.9 - Chronic kidney disease, unspecified SNOMED: 444061083 (8) CHF exacerbation ICD Codes: I50.9 - Heart failure, unspecified SNOMED: 577242665, 61517312475758 Status: unchanged Assessment/Plan: intubated resp failure copd exacerbation covid positive pna obesity paranoid noncompliance w meds chf as well Dani Perera MD May 13, 2020 21:13
--- NOTE | 2020-05-13 23:59 | Consultation ---
DATE OF CONSULTATION: 05/13/2020 HISTORY OF PRESENT ILLNESS: This is an 79-year-old female who is under my care at [facility]. She was sent to the hospital due to shortness of breath. The patient was sent to the ICU and subsequently she was intubated. She is presenting with waxing and waning consciousness, is on bilateral soft restraints. She has been attempting to pull out lines and is confused, not able to be engaged during evaluation. PAST PSYCHIATRY HISTORY: Significant for schizophrenia. PAST MEDICAL HISTORY: Significant for renal failure, congestive heart failure, anemia. ALLERGIES: No known drug allergies. SUBSTANCE ABUSE HISTORY: No known history of illicit drug use or alcohol. MENTAL STATUS EXAMINATION: The patient is having waxing and waning consciousness. Disoriented. Mood is neutral to agitation. Affect is flat. Thought process, there is paucity of thought process. Thought content, no suicidal or homicidal ideation. Cognition is impaired. Insight and judgment is impaired. ASSESSMENT: Kirkwood I Acute toxic encephalopathy. Schizophrenia. Kirkwood II Deferred. Kirkwood III COVID-19. Kirkwood IV Low. Kirkwood V 20 PLAN: 1. Discontinue the IV Haldol. 2. Start the patient on Haldol IM. 3. The patient benefits from bilateral soft restraints. 4. Provide the patient with reality orientation. 5. Discussed with the nurse. Kiana Hernandez M.D. DR: JANE JOB#: [id number] CC:
[2020-05-14] VITALS (45 sets, daily range): BP systolic 80–126; BP diastolic 33–85
[2020-05-14] MEDS ORDERED: Rocuronium Bromide 50mg/5ml Inj IV ONE (05:49)
[2020-05-14] MEDS ORDERED: Etomidate 40mg/20ml Inj IV ONE (05:49)
[2020-05-14 06:02] LABS: BASOPHILS % (AUTO) 0.4 % (0.0-2.0); HEMATOCRIT 26.1 % (37.0-47.0); HEMOGLOBIN 9.4 G/DL (12.0-16.0); LYMPHOCYTES % (AUTO) 15.1 % (20.0-45.0); MEAN CORPUSCULAR VOLUME 91 FL (80-99); MONOCYTES % (AUTO) 5.4 % (1.0-10.0); NEUTROPHILS % (AUTO) 79.1 % (45.0-75.0); PLATELET COUNT 178 K/UL (150-450); RED BLOOD COUNT 2.86 M/UL (4.20-5.40); RED CELL DISTRIBUTION WIDTH 13.7 % (11.6-14.8); WHITE BLOOD COUNT 6.1 K/UL (4.8-10.8)
[2020-05-14 06:03] LABS: ALBUMIN 2.6 G/DL (3.4-5.0); ALBUMIN/GLOBULIN RATIO 0.6 (1.0-2.7); BILIRUBIN,DIRECT 0.2 MG/DL (0.0-0.3); BILIRUBIN,TOTAL 0.6 MG/DL (0.2-1.0); CALCIUM 7.6 MG/DL (8.5-10.1); CREATININE 1.1 MG/DL (0.55-1.30); POTASSIUM 3.4 MMOL/L (3.5-5.1)
[2020-05-14] MEDS: dexAMETHasone 10mg/ml Inj IV SCH (08:48)
[2020-05-14] MEDS: DOPamine 400mg/250ml 250 ML IV SCH (08:49)
[2020-05-14] MEDS ORDERED: Tubing IV Secondary IV ONE ×2 (10:16→10:18)
[2020-05-14] MEDS ORDERED: NS 275ml ONE (10:16)
[2020-05-14] MEDS ORDERED: Tubing IV Blood Pump IV ONE (10:16)
[2020-05-14] MEDS ORDERED: D5NS 1000ml IV ONE (10:18)
[2020-05-14] MEDS ORDERED: D5 1/2NS 1000ml IV ONE (10:18)
--- NOTE | 2020-05-14 10:18 | Infectious Diseases Prog Note ---
Assessment/Plan Assessment/Plan IMPRESSION: COVID-19 disease, Acute respiratory failure, COPD, Diastolic CHF, Mitral valve regurgitation, Anemia, Parkinson disease, schizoaffective disorder, Dementia, Obstructive sleep apnea, Hypothyroidism. MRSA carrier RECOMMENDATION: Continue dexamethasone, ceftriaxone, and azithromycin. Started on Remdesivir Will f/u sputum culture Subjective ROS Limited/Unobtainable: Yes Constitutional: Denies: fever Cardiovascular: Reports: other - on Dopamin Neurologic: Reports: confusion, other - on restraint Allergies: Coded Allergies: No Known Allergies (Unverified , 05/11/20) Objective Last 24 Hour Vital Signs Date Time Temp Pulse Resp B/P (MAP) Pulse Ox O2 Delivery O2 Flow Rate FiO2 05/14/20 09:30 69 15 104/34 (57) 96 05/14/20 09:00 74 13 80/40 (53) 96 05/14/20 08:49 105/30 05/14/20 08:30 78 14 109/43 (65) 98 05/14/20 08:00 Mechanical Ventilator 05/14/20 08:00 98.8 64 13 105/38 (60) 95 05/14/20 08:00 60 05/14/20 07:30 63 13 104/36 (58) 96 05/14/20 07:29 73 16 60 05/14/20 07:00 70 14 112/38 (62) 99 05/14/20 06:30 70 14 114/38 (63) 98 05/14/20 06:00 110/35 05/14/20 06:00 69 14 110/35 (60) 97 05/14/20 06:00 51 18 05/14/20 05:30 69 15 115/36 (62) 97 05/14/20 05:00 110/34 05/14/20 05:00 63 12 100/37 (58) 96 05/14/20 04:30 68 14 112/34 (60) 98 05/14/20 04:00 Mechanical Ventilator 05/14/20 04:00 98.8 70 16 112/37 (62) 97 05/14/20 04:00 108/32 05/14/20 03:30 66 14 108/34 (58) 95 05/14/20 03:00 68 16 85/35 (52) 96 05/14/20 03:00 104/33 05/14/20 02:43 69 16 60 05/14/20 02:30 68 17 103/34 (57) 93 05/14/20 02:00 85 16 121/35 (63) 98 05/14/20 02:00 112/39 05/14/20 01:30 75 16 124/43 (70) 96 05/14/20 01:00 76 15 121/43 (69) 96 05/14/20 01:00 121/53 05/14/20 00:30 99.0 76 15 126/48 (74) 97 05/14/20 00:00 67 15 125/52 (76) 95 05/14/20 00:00 Mechanical Ventilator 05/14/20 00:00 65 05/14/20 00:00 60 05/14/20 00:00 125/53 05/13/20 23:48 123/40 05/13/20 23:30 63 15 123/37 (65) 95 05/13/20 23:00 64 15 123/38 (66) 97 05/13/20 23:00 124/64 05/13/20 22:45 64 14 60 05/13/20 22:30 66 15 126/40 (68) 97 05/13/20 22:00 69 15 130/41 (70) 99 05/13/20 22:00 96/56 05/13/20 21:30 76 15 96/38 (57) 97 05/13/20 21:25 88/36 05/13/20 21:00 75 13 115/47 (69) 98 05/13/20 21:00 110/46 05/13/20 20:30 63 14 110/47 (68) 95 05/13/20 20:00 76 05/13/20 20:00 110/47 05/13/20 20:00 Mechanical Ventilator 05/13/20 20:00 60 05/13/20 20:00 98.8 75 15 121/42 (68) 97 05/13/20 19:02 79 17 60 05/13/20 19:00 77 15 122/45 (70) 98 05/13/20 19:00 122/45 05/13/20 18:30 72 15 107/41 (63) 96 05/13/20 18:00 69 15 117/44 (68) 96 05/13/20 18:00 120/43 05/13/20 17:30 70 15 74/53 (60) 96 05/13/20 17:00 73 15 125/37 (66) 95 05/13/20 17:00 125/37 05/13/20 16:30 66 15 119/35 (63) 92 05/13/20 16:00 Mechanical Ventilator 05/13/20 16:00 60 05/13/20 16:00 98.5 63 15 122/36 (64) 96 05/13/20 16:00 122/22 05/13/20 15:30 71 15 123/39 (67) 96 05/13/20 15:29 73 15 60 05/13/20 15:22 63 05/13/20 15:00 123/37 05/13/20 15:00 65 16 120/35 (63) 98 05/13/20 14:30 64 16 120/35 (63) 95 05/13/20 14:00 64 16 120/33 (62) 94 05/13/20 14:00 120/33 05/13/20 13:30 65 16 122/38 (66) 97 05/13/20 13:00 98.8 73 16 125/40 (68) 97 05/13/20 13:00 124/40 05/13/20 12:30 64 14 117/47 (70) 94 05/13/20 12:00 Mechanical Ventilator 05/13/20 12:00 60 05/13/20 12:00 64 18 119/33 (61) 97 05/13/20 12:00 123/36 05/13/20 12:00 73 05/13/20 11:54 60 05/13/20 11:30 65 18 124/35 (64) 97 05/13/20 11:02 72 18 60 05/13/20 11:00 119/36 05/13/20 11:00 69 18 124/35 (64) 96 05/13/20 10:30 65 18 123/34 (63) 96 Height (Feet): 5 Height (Inches): 3.00 Weight (Pounds): 170 HEENT: other - orally intubated Respiratory/Chest: other - in ventilator, FIO2=60% Cardiovascular: normal rate, other - R femoral line Abdomen: soft, non tender Extremities: no edema Neurologic/Psychiatric: disoriented, other - open eyes Microbiology Date/Time Source Procedure Growth Status 05/12/20 17:00 Sputum Gram Stain - Final Resulted 05/12/20 17:00 Sputum Sputum Culture Pending Resulted 05/11/20 23:40 Rectum VRE Culture - Final NO VANCOMYCIN RESISTANT ENTEROCOCCUS ... Complete 05/11/20 23:40 Rectum - Final NO CARBAPENEM-RESISTANT ENTEROBACTERI... Complete 05/11/20 23:40 Nasal Nares MRSA Culture - Final Staphylococcus Aureus - Mrsa Complete 05/11/20 17:05 Blood Blood Culture - Preliminary NO GROWTH AFTER 48 HOURS Resulted 05/11/20 17:00 Urine,Clean Catch Urine Culture - Final Strep Agalactiae Group B Mixed Gram Positive Organism Complete 05/11/20 16:50 Blood Blood Culture - Preliminary NO GROWTH AFTER 48 HOURS Resulted 05/11/20 16:30 Nasopharynx SARS-CoV-2 RdRp Gene Assay - Final Complete Laboratory Tests Test 05/13/20 10:36 05/14/20 04:15 Arterial Blood pH 7.494 (7.350-7.450) Arterial Blood Partial Pressure CO2 33.8 mmHg (35.0-45.0) L Arterial Blood Partial Pressure O2 67.7 mmHg (75.0-100.0) L Arterial Blood HCO3 25.4 mmol/L (22.0-26.0) Arterial Blood Oxygen Saturation 93.0 % (95-100) L Arterial Blood Base Excess 2.3 (-2-2) H Raphael Test Positive White Blood Count 6.1 K/UL (4.8-10.8) Red Blood Count 2.86 M/UL (4.20-5.40) L Hemoglobin 9.4 G/DL (12.0-16.0) L Hematocrit 26.1 % (37.0-47.0) L Mean Corpuscular Volume 91 FL (80-99) Mean Corpuscular Hemoglobin 32.9 PG (27.0-31.0) H Mean Corpuscular Hemoglobin Concent 36.0 G/DL (32.0-36.0) Red Cell Distribution Width 13.7 % (11.6-14.8) Platelet Count 178 K/UL (150-450) Mean Platelet Volume 7.1 FL (6.5-10.1) Neutrophils (%) (Auto) 79.1 % (45.0-75.0) H Lymphocytes (%) (Auto) 15.1 % (20.0-45.0) L Monocytes (%) (Auto) 5.4 % (1.0-10.0) Eosinophils (%) (Auto) 0.0 % (0.0-3.0) Basophils (%) (Auto) 0.4 % (0.0-2.0) Sodium Level 140 MMOL/L (136-145) Potassium Level 3.4 MMOL/L (3.5-5.1) L Chloride Level 105 MMOL/L (98-107) Carbon Dioxide Level 29 MMOL/L (21-32) Anion Gap 6 mmol/L (5-15) Blood Urea Nitrogen 31 mg/dL (7-18) H Creatinine 1.1 MG/DL (0.55-1.30) Estimat Glomerular Filtration Rate 47.8 mL/min (>60) Glucose Level 113 MG/DL (74-106) H Calcium Level 7.6 MG/DL (8.5-10.1) L Total Bilirubin 0.6 MG/DL (0.2-1.0) Direct Bilirubin 0.2 MG/DL (0.0-0.3) Aspartate Amino Transf (AST/SGOT) 23 U/L (15-37) Alanine Aminotransferase (ALT/SGPT) 16 U/L (12-78) Alkaline Phosphatase 43 U/L (46-116) L Total Protein 6.8 G/DL (6.4-8.2) Albumin 2.6 G/DL (3.4-5.0) L Globulin 4.2 g/dL Albumin/Globulin Ratio 0.6 (1.0-2.7) L Current Medications Medications (Trade) Dose Ordered Sig/Angie Route PRN Reason Start Time Stop Time Status Last Admin Dose Admin Azithromycin 250 mg/Dextrose 275 ml @ 275 mls/hr Q24HRS IV 05/12/20 17:00 05/17/20 16:59 05/13/20 17:09 Ceftriaxone Sodium 1 gm/ Dextrose 55 ml @ 110 mls/hr Q24H IVPB 05/12/20 16:00 05/19/20 15:59 05/13/20 15:45 Clonidine HCl (Catapres Tab) 0.1 mg Q4H PRN ORAL sbp>170 05/11/20 17:15 08/09/20 17:14 Dexamethasone Sodium Phosphate (Decadron 10mg/ ml Inj) 6 mg DAILY IV 05/12/20 15:45 05/21/20 15:44 05/14/20 08:48 Dopamine HCl/ Dextrose 250 ml @ 6.825 mls/ hr Q24H IV 05/12/20 09:45 05/15/20 09:42 05/14/20 08:49 Haloperidol Lactate (Haldol) 5 mg Q6H PRN IM Agitation 05/13/20 20:45 06/27/20 20:44 Levothyroxine Sodium (Synthroid) 50 mcg DAILY@0630 ORAL 05/14/20 06:30 06/13/20 06:29 05/14/20 06:24 Norepinephrine Bitartrate 250 ml @ 0 mls/hr Q24H IV 05/12/20 01:00 05/15/20 00:52 05/12/20 01:25 Potassium Chloride 100 ml @ 50 mls/hr ONCE ONCE IVPB 05/14/20 08:45 05/14/20 10:44 05/14/20 10:10 Remdesivir 100 mg/ Sodium Chloride 250 ml @ 250 mls/hr Q24H IV 05/14/20 21:00 05/17/20 21:59 Lei Chan MD May 14, 2020 10:18
--- NOTE | 2020-05-14 10:53 | Pulmonology Progress Note ---
Subjective ROS Limited/Unobtainable: Yes Interval Events: Remains intubated Constitutional: Reports: no symptoms HEENT: Repors: no symptoms Respiratory: Reports: no symptoms Cardiovascular: Reports: no symptoms Gastrointestinal/Abdominal: Reports: no symptoms Genitourinary: Reports: no symptoms Allergies: Coded Allergies: No Known Allergies (Unverified , 05/11/20) Objective Last 24 Hour Vital Signs Date Time Temp Pulse Resp B/P (MAP) Pulse Ox O2 Delivery O2 Flow Rate FiO2 05/14/20 10:00 66 12 104/33 (56) 94 05/14/20 09:45 71 13 110/85 (93) 98 05/14/20 09:30 69 15 104/34 (57) 96 05/14/20 09:00 74 13 80/40 (53) 96 05/14/20 08:49 105/30 05/14/20 08:30 78 14 109/43 (65) 98 05/14/20 08:00 Mechanical Ventilator 05/14/20 08:00 98.8 64 13 105/38 (60) 95 05/14/20 08:00 73 05/14/20 08:00 60 05/14/20 07:30 63 13 104/36 (58) 96 05/14/20 07:29 73 16 60 05/14/20 07:00 70 14 112/38 (62) 99 05/14/20 06:30 70 14 114/38 (63) 98 05/14/20 06:00 110/35 05/14/20 06:00 69 14 110/35 (60) 97 05/14/20 06:00 51 18 05/14/20 05:30 69 15 115/36 (62) 97 05/14/20 05:00 110/34 05/14/20 05:00 63 12 100/37 (58) 96 05/14/20 04:30 68 14 112/34 (60) 98 05/14/20 04:00 Mechanical Ventilator 05/14/20 04:00 98.8 70 16 112/37 (62) 97 05/14/20 04:00 108/32 05/14/20 03:30 66 14 108/34 (58) 95 05/14/20 03:00 68 16 85/35 (52) 96 05/14/20 03:00 104/33 05/14/20 02:43 69 16 60 12/2/20 02:30 68 17 103/34 (57) 93 05/14/20 02:00 85 16 121/35 (63) 98 05/14/20 02:00 112/39 05/14/20 01:30 75 16 124/43 (70) 96 05/14/20 01:00 76 15 121/43 (69) 96 05/14/20 01:00 121/53 05/14/20 00:30 99.0 76 15 126/48 (74) 97 05/14/20 00:00 67 15 125/52 (76) 95 05/14/20 00:00 Mechanical Ventilator 05/14/20 00:00 65 05/14/20 00:00 60 05/14/20 00:00 125/53 05/13/20 23:48 123/40 05/13/20 23:30 63 15 123/37 (65) 95 05/13/20 23:00 64 15 123/38 (66) 97 05/13/20 23:00 124/64 05/13/20 22:45 64 14 60 05/13/20 22:30 66 15 126/40 (68) 97 05/13/20 22:00 69 15 130/41 (70) 99 05/13/20 22:00 96/56 05/13/20 21:30 76 15 96/38 (57) 97 05/13/20 21:25 88/36 05/13/20 21:00 75 13 115/47 (69) 98 05/13/20 21:00 110/46 05/13/20 20:30 63 14 110/47 (68) 95 05/13/20 20:00 76 05/13/20 20:00 110/47 05/13/20 20:00 Mechanical Ventilator 05/13/20 20:00 60 05/13/20 20:00 98.8 75 15 121/42 (68) 97 05/13/20 19:02 79 17 60 05/13/20 19:00 77 15 122/45 (70) 98 05/13/20 19:00 122/45 05/13/20 18:30 72 15 107/41 (63) 96 05/13/20 18:00 69 15 117/44 (68) 96 05/13/20 18:00 120/43 05/13/20 17:30 70 15 74/53 (60) 96 05/13/20 17:00 73 15 125/37 (66) 95 05/13/20 17:00 125/37 05/13/20 16:30 66 15 119/35 (63) 92 05/13/20 16:00 Mechanical Ventilator 05/13/20 16:00 60 05/13/20 16:00 98.5 63 15 122/36 (64) 96 05/13/20 16:00 122/22 05/13/20 15:30 71 15 123/39 (67) 96 05/13/20 15:29 73 15 60 05/13/20 15:22 63 05/13/20 15:00 123/37 05/13/20 15:00 65 16 120/35 (63) 98 05/13/20 14:30 64 16 120/35 (63) 95 05/13/20 14:00 64 16 120/33 (62) 94 05/13/20 14:00 120/33 05/13/20 13:30 65 16 122/38 (66) 97 05/13/20 13:00 98.8 73 16 125/40 (68) 97 05/13/20 13:00 124/40 05/13/20 12:30 64 14 117/47 (70) 94 05/13/20 12:00 Mechanical Ventilator 05/13/20 12:00 60 05/13/20 12:00 64 18 119/33 (61) 97 05/13/20 12:00 123/36 05/13/20 12:00 73 05/13/20 11:54 60 05/13/20 11:30 65 18 124/35 (64) 97 05/13/20 11:02 72 18 60 05/13/20 11:00 119/36 05/13/20 11:00 69 18 124/35 (64) 96 Intake and Output 05/13/20 05/14/20 19:00 07:00 Intake Total 575.700 ml 427.450 ml Output Total 880 ml 1120 ml Balance -304.300 ml -692.550 ml IV Total 575.700 ml 427.450 ml Output Urine Total 880 ml 1120 ml General Appearance: no acute distress HEENT: normocephalic Respiratory: decreased breath sounds, other - On ventilator, FiO2 60% Cardiovascular: JVD Abdomen: soft, non tender, other - obese, NG tube Extremities: other - b/l 2+ pitting edema Neurologic: disoriented Microbiology Date/Time Source Procedure Growth Status 05/12/20 17:00 Sputum Gram Stain - Final Resulted 05/12/20 17:00 Sputum Sputum Culture Pending Resulted 05/11/20 23:40 Rectum VRE Culture - Final NO VANCOMYCIN RESISTANT ENTEROCOCCUS ... Complete 05/11/20 23:40 Rectum - Final NO CARBAPENEM-RESISTANT ENTEROBACTERI... Complete 05/11/20 23:40 Nasal Nares MRSA Culture - Final Staphylococcus Aureus - Mrsa Complete 05/11/20 17:05 Blood Blood Culture - Preliminary NO GROWTH AFTER 48 HOURS Resulted 05/11/20 17:00 Urine,Clean Catch Urine Culture - Final Strep Agalactiae Group B Mixed Gram Positive Organism Complete 05/11/20 16:50 Blood Blood Culture - Preliminary NO GROWTH AFTER 48 HOURS Resulted 05/11/20 16:30 Nasopharynx SARS-CoV-2 RdRp Gene Assay - Final Complete Laboratory Tests 05/14/20 04:15: White Blood Count 6.1, Red Blood Count 2.86L, Hemoglobin 9.4L, Hematocrit 26.1L, Mean Corpuscular Volume 91, Mean Corpuscular Hemoglobin 32.9H, Mean Corpuscular Hemoglobin Concent 36.0, Red Cell Distribution Width 13.7, Platelet Count 178, Mean Platelet Volume 7.1, Neutrophils (%) (Auto) 79.1H, Lymphocytes (%) (Auto) 15.1L, Monocytes (%) (Auto) 5.4, Eosinophils (%) (Auto) 0.0, Basophils (%) (Auto) 0.4, Sodium Level 140, Potassium Level 3.4L, Chloride Level 105, Carbon Dioxide Level 29, Anion Gap 6, Blood Urea Nitrogen 31H, Creatinine 1.1, Estimat Glomerular Filtration Rate 47.8, Glucose Level 113H, Calcium Level 7.6L, Total Bilirubin 0.6, Direct Bilirubin 0.2, Aspartate Amino Transf (AST/SGOT) 23, Alanine Aminotransferase (ALT/SGPT) 16, Alkaline Phosphatase 43L, Total Protein 6.8, Albumin 2.6L, Globulin 4.2, Albumin/Globulin Ratio 0.6L Current Medications Medications (Trade) Dose Ordered Sig/Angie Route PRN Reason Start Time Stop Time Status Last Admin Dose Admin Azithromycin 250 mg/Dextrose 275 ml @ 275 mls/hr Q24HRS IV 05/12/20 17:00 05/17/20 16:59 05/13/20 17:09 Ceftriaxone Sodium 1 gm/ Dextrose 55 ml @ 110 mls/hr Q24H IVPB 05/12/20 16:00 05/19/20 15:59 05/13/20 15:45 Clonidine HCl (Catapres Tab) 0.1 mg Q4H PRN ORAL sbp>170 05/11/20 17:15 08/09/20 17:14 Dexamethasone Sodium Phosphate (Decadron 10mg/ ml Inj) 6 mg DAILY IV 05/12/20 15:45 05/21/20 15:44 05/14/20 08:48 Dopamine HCl/ Dextrose 250 ml @ 6.825 mls/ hr Q24H IV 05/12/20 09:45 05/15/20 09:42 05/14/20 08:49 Haloperidol Lactate (Haldol) 5 mg Q6H PRN IM Agitation 05/13/20 20:45 06/27/20 20:44 Levothyroxine Sodium (Synthroid) 50 mcg DAILY@0630 ORAL 05/14/20 06:30 06/13/20 06:29 05/14/20 06:24 Norepinephrine Bitartrate 250 ml @ 0 mls/hr Q24H IV 05/12/20 01:00 05/15/20 00:52 05/12/20 01:25 Remdesivir 100 mg/ Sodium Chloride 250 ml @ 250 mls/hr Q24H IV 05/14/20 21:00 05/17/20 21:59 Assessment/Plan Assessment/Plan 1. Bilateral COVID-19 multilobar pneumonia. - Pt orally intubated - Afebrile - Continue Azithromycin, Ceftriaxone, dexamethasone - Remdesivir initiated - defer to ID 2. Hx of COPD. 3. Schizophrenia/psychosis - On dopamine, haloperidol 4. Hypoxia. - FiO2 60% - Cont vent; AC mode 5. Anemia - Improving; hgb 9.1 -> 10.3 6. Azotemia/renal failure - UA: Positive leuk esterase, protein, RBC, WBC (05/11/2020) - BUN 47 -> 40 The care for this patient was discussed with my supervising physician Will begin weaning Time spent for this case was 31 minutes Sincere Myers MD May 14, 2020 10:53
--- NOTE | 2020-05-14 14:04 | Nephrology Progress Note ---
Assessment/Plan Problem List: (1) Renal failure (ARF), acute on chronic (2) Hypercapnic respiratory failure (3) CHF exacerbation Assessment Azotemia/renal failure Acute respiratory failure most likely secondary to CHF, on mechanical ventilation History of COPD Hypertension Hyperlipemia Schizophrenia/psychosis Plan May 14: Labs reviewed. Discussed with RN. Abnormal electrolyte addressed. Continue per current management. Patient seen in ICU. Discussed with RN. Today's labs pending. Patient remains on 6 mics of dopamine. Pulmonary support Monitor intake and output Monitor electrolytes Continue per consultants Per orders Subjective ROS Limited/Unobtainable: Yes Objective Objective Last 24 Hour Vital Signs Date Time Temp Pulse Resp B/P (MAP) Pulse Ox O2 Delivery O2 Flow Rate FiO2 05/14/20 13:00 70 12 108/38 (61) 95 05/14/20 12:30 78 12 115/37 (63) 98 05/14/20 12:01 99.1 72 12 112/40 (64) 97 05/14/20 12:00 60 05/14/20 12:00 Mechanical Ventilator 05/14/20 12:00 76 05/14/20 12:00 72 12 112/40 (64) 97 05/14/20 11:50 76 18 60 05/14/20 11:30 76 15 113/37 (62) 98 05/14/20 11:13 83 15 40 05/14/20 11:00 77 12 110/39 (62) 99 05/14/20 10:30 78 17 105/36 (59) 96 05/14/20 10:00 66 12 104/33 (56) 94 05/14/20 09:45 71 13 110/85 (93) 98 05/14/20 09:30 69 15 104/34 (57) 96 05/14/20 09:00 80/40 05/14/20 09:00 74 13 80/40 (53) 96 05/14/20 08:49 105/30 05/14/20 08:30 78 14 109/43 (65) 98 05/14/20 08:00 Mechanical Ventilator 05/14/20 08:00 98.8 64 13 105/38 (60) 95 05/14/20 08:00 73 05/14/20 08:00 60 05/14/20 07:30 63 13 104/36 (58) 96 05/14/20 07:29 73 16 60 12/2/20 07:00 70 14 112/38 (62) 99 05/14/20 06:30 70 14 114/38 (63) 98 05/14/20 06:00 110/35 05/14/20 06:00 69 14 110/35 (60) 97 05/14/20 06:00 51 18 05/14/20 05:30 69 15 115/36 (62) 97 05/14/20 05:00 110/34 05/14/20 05:00 63 12 100/37 (58) 96 05/14/20 04:30 68 14 112/34 (60) 98 05/14/20 04:00 Mechanical Ventilator 05/14/20 04:00 98.8 70 16 112/37 (62) 97 05/14/20 04:00 108/32 05/14/20 03:30 66 14 108/34 (58) 95 05/14/20 03:00 68 16 85/35 (52) 96 05/14/20 03:00 104/33 05/14/20 02:43 69 16 60 05/14/20 02:30 68 17 103/34 (57) 93 05/14/20 02:00 85 16 121/35 (63) 98 05/14/20 02:00 112/39 05/14/20 01:30 75 16 124/43 (70) 96 05/14/20 01:00 76 15 121/43 (69) 96 05/14/20 01:00 121/53 05/14/20 00:30 99.0 76 15 126/48 (74) 97 05/14/20 00:00 67 15 125/52 (76) 95 05/14/20 00:00 Mechanical Ventilator 05/14/20 00:00 65 05/14/20 00:00 60 05/14/20 00:00 125/53 05/13/20 23:48 123/40 05/13/20 23:30 63 15 123/37 (65) 95 05/13/20 23:00 64 15 123/38 (66) 97 05/13/20 23:00 124/64 05/13/20 22:45 64 14 60 05/13/20 22:30 66 15 126/40 (68) 97 05/13/20 22:00 69 15 130/41 (70) 99 05/13/20 22:00 96/56 05/13/20 21:30 76 15 96/38 (57) 97 05/13/20 21:25 88/36 05/13/20 21:00 75 13 115/47 (69) 98 05/13/20 21:00 110/46 05/13/20 20:30 63 14 110/47 (68) 95 05/13/20 20:00 76 05/13/20 20:00 110/47 05/13/20 20:00 Mechanical Ventilator 05/13/20 20:00 60 05/13/20 20:00 98.8 75 15 121/42 (68) 97 05/13/20 19:02 79 17 60 05/13/20 19:00 77 15 122/45 (70) 98 05/13/20 19:00 122/45 05/13/20 18:30 72 15 107/41 (63) 96 05/13/20 18:00 69 15 117/44 (68) 96 05/13/20 18:00 120/43 05/13/20 17:30 70 15 74/53 (60) 96 05/13/20 17:00 73 15 125/37 (66) 95 05/13/20 17:00 125/37 05/13/20 16:30 66 15 119/35 (63) 92 05/13/20 16:00 Mechanical Ventilator 05/13/20 16:00 60 05/13/20 16:00 98.5 63 15 122/36 (64) 96 05/13/20 16:00 122/22 05/13/20 15:30 71 15 123/39 (67) 96 05/13/20 15:29 73 15 60 05/13/20 15:22 63 05/13/20 15:00 123/37 05/13/20 15:00 65 16 120/35 (63) 98 05/13/20 14:30 64 16 120/35 (63) 95 Intake and Output 05/13/20 05/14/20 19:00 07:00 Intake Total 575.700 ml 441.100 ml Output Total 880 ml 1120 ml Balance -304.300 ml -678.900 ml IV Total 575.700 ml 441.100 ml Output Urine Total 880 ml 1120 ml Current Medications Medications (Trade) Dose Ordered Sig/Angie Route PRN Reason Start Time Stop Time Status Last Admin Dose Admin Azithromycin 250 mg/Dextrose 275 ml @ 275 mls/hr Q24HRS IV 05/12/20 17:00 05/17/20 16:59 05/13/20 17:09 Ceftriaxone Sodium 1 gm/ Dextrose 55 ml @ 110 mls/hr Q24H IVPB 05/12/20 16:00 05/19/20 15:59 05/13/20 15:45 Clonidine HCl (Catapres Tab) 0.1 mg Q4H PRN ORAL sbp>170 05/11/20 17:15 08/09/20 17:14 Dexamethasone Sodium Phosphate (Decadron 10mg/ ml Inj) 6 mg DAILY IV 05/12/20 15:45 05/21/20 15:44 05/14/20 08:48 Dopamine HCl/ Dextrose 250 ml @ 6.825 mls/ hr Q24H IV 05/12/20 09:45 05/15/20 09:42 05/14/20 08:49 Haloperidol Lactate (Haldol) 5 mg Q6H PRN IM Agitation 05/13/20 20:45 06/27/20 20:44 Levothyroxine Sodium (Synthroid) 50 mcg DAILY@0630 ORAL 05/14/20 06:30 06/13/20 06:29 05/14/20 06:24 Norepinephrine Bitartrate 250 ml @ 0 mls/hr Q24H IV 05/12/20 01:00 05/15/20 00:52 05/12/20 01:25 Remdesivir 100 mg/ Sodium Chloride 250 ml @ 250 mls/hr Q24H IV 05/14/20 21:00 05/17/20 21:59 Laboratory Tests 05/14/20 04:15: White Blood Count 6.1, Red Blood Count 2.86L, Hemoglobin 9.4L, Hematocrit 26.1L, Mean Corpuscular Volume 91, Mean Corpuscular Hemoglobin 32.9H, Mean Corpuscular Hemoglobin Concent 36.0, Red Cell Distribution Width 13.7, Platelet Count 178, Mean Platelet Volume 7.1, Neutrophils (%) (Auto) 79.1H, Lymphocytes (%) (Auto) 15.1L, Monocytes (%) (Auto) 5.4, Eosinophils (%) (Auto) 0.0, Basophils (%) (Auto) 0.4, Sodium Level 140, Potassium Level 3.4L, Chloride Level 105, Carbon Dioxide Level 29, Anion Gap 6, Blood Urea Nitrogen 31H, Creatinine 1.1, Estimat Glomerular Filtration Rate 47.8, Glucose Level 113H, Calcium Level 7.6L, Total Bilirubin 0.6, Direct Bilirubin 0.2, Aspartate Amino Transf (AST/SGOT) 23, Alanine Aminotransferase (ALT/SGPT) 16, Alkaline Phosphatase 43L, Total Protein 6.8, Albumin 2.6L, Globulin 4.2, Albumin/Globulin Ratio 0.6L Height (Feet): 5 Height (Inches): 3.00 Weight (Pounds): 170 General Appearance: no apparent distress EENT: other - On mechanical ventilation Cardiovascular: normal rate Respiratory/Chest: decreased breath sounds Abdomen: distended Bryan Ochoa MD May 14, 2020 14:04
--- NOTE | 2020-05-14 15:36 | Cardiac Electrophysiology PN ---
Assessment/Plan Assessment/Plan 1. Shortness of breath due to Covid PNA Intubated on the Vent. 2. History of COPD. 3. Hypotension. On Dopamine 6 mcg . EF 55% 4. Bradycardia on Dopamine 5. Schizophrenia and psychosis. Subjective Subjective Intubated in ICU now. Covid is positive. On 60% Fio2 and 4 Mcg of Dopamine as was bradycardic Failed weaning Objective Last 24 Hour Vital Signs Date Time Temp Pulse Resp B/P (MAP) Pulse Ox O2 Delivery O2 Flow Rate FiO2 05/14/20 15:00 113/66 05/14/20 15:00 73 12 108/41 (63) 96 05/14/20 14:30 78 13 112/38 (62) 98 05/14/20 14:00 108/37 05/14/20 14:00 76 12 109/37 (61) 98 05/14/20 13:30 73 12 106/37 (60) 95 05/14/20 13:00 107/46 05/14/20 13:00 70 12 108/38 (61) 95 05/14/20 12:30 78 12 115/37 (63) 98 05/14/20 12:01 99.1 72 12 112/40 (64) 97 05/14/20 12:00 60 05/14/20 12:00 Mechanical Ventilator 05/14/20 12:00 112/40 05/14/20 12:00 76 05/14/20 12:00 72 12 112/40 (64) 97 05/14/20 11:50 76 18 60 05/14/20 11:30 76 15 113/37 (62) 98 05/14/20 11:13 83 15 40 05/14/20 11:00 77 12 110/39 (62) 99 05/14/20 11:00 121/43 05/14/20 10:30 78 17 105/36 (59) 96 05/14/20 10:00 104/33 05/14/20 10:00 66 12 104/33 (56) 94 05/14/20 09:45 71 13 110/85 (93) 98 05/14/20 09:30 69 15 104/34 (57) 96 05/14/20 09:00 80/40 05/14/20 09:00 74 13 80/40 (53) 96 05/14/20 08:49 105/30 05/14/20 08:30 78 14 109/43 (65) 98 05/14/20 08:00 Mechanical Ventilator 05/14/20 08:00 98.8 64 13 105/38 (60) 95 05/14/20 08:00 73 05/14/20 08:00 60 05/14/20 07:30 63 13 104/36 (58) 96 05/14/20 07:29 73 16 60 05/14/20 07:00 112/38 05/14/20 07:00 70 14 112/38 (62) 99 05/14/20 06:30 70 14 114/38 (63) 98 05/14/20 06:00 110/35 05/14/20 06:00 69 14 110/35 (60) 97 05/14/20 06:00 51 18 05/14/20 05:30 69 15 115/36 (62) 97 05/14/20 05:00 110/34 05/14/20 05:00 63 12 100/37 (58) 96 05/14/20 04:30 68 14 112/34 (60) 98 05/14/20 04:00 Mechanical Ventilator 05/14/20 04:00 98.8 70 16 112/37 (62) 97 05/14/20 04:00 108/32 05/14/20 03:30 66 14 108/34 (58) 95 05/14/20 03:00 68 16 85/35 (52) 96 05/14/20 03:00 104/33 05/14/20 02:43 69 16 60 05/14/20 02:30 68 17 103/34 (57) 93 05/14/20 02:00 85 16 121/35 (63) 98 05/14/20 02:00 112/39 05/14/20 01:30 75 16 124/43 (70) 96 05/14/20 01:00 76 15 121/43 (69) 96 05/14/20 01:00 121/53 05/14/20 00:30 99.0 76 15 126/48 (74) 97 05/14/20 00:00 67 15 125/52 (76) 95 05/14/20 00:00 Mechanical Ventilator 05/14/20 00:00 65 05/14/20 00:00 60 12/2/20 00:00 125/53 05/13/20 23:48 123/40 05/13/20 23:30 63 15 123/37 (65) 95 05/13/20 23:00 64 15 123/38 (66) 97 05/13/20 23:00 124/64 05/13/20 22:45 64 14 60 05/13/20 22:30 66 15 126/40 (68) 97 05/13/20 22:00 69 15 130/41 (70) 99 05/13/20 22:00 96/56 05/13/20 21:30 76 15 96/38 (57) 97 05/13/20 21:25 88/36 05/13/20 21:00 75 13 115/47 (69) 98 05/13/20 21:00 110/46 05/13/20 20:30 63 14 110/47 (68) 95 05/13/20 20:00 76 05/13/20 20:00 110/47 05/13/20 20:00 Mechanical Ventilator 05/13/20 20:00 60 05/13/20 20:00 98.8 75 15 121/42 (68) 97 05/13/20 19:02 79 17 60 05/13/20 19:00 77 15 122/45 (70) 98 05/13/20 19:00 122/45 05/13/20 18:30 72 15 107/41 (63) 96 05/13/20 18:00 69 15 117/44 (68) 96 05/13/20 18:00 120/43 05/13/20 17:30 70 15 74/53 (60) 96 05/13/20 17:00 73 15 125/37 (66) 95 05/13/20 17:00 125/37 05/13/20 16:30 66 15 119/35 (63) 92 05/13/20 16:00 Mechanical Ventilator 05/13/20 16:00 60 05/13/20 16:00 98.5 63 15 122/36 (64) 96 05/13/20 16:00 122/22 Intake and Output 05/13/20 05/14/20 19:00 07:00 Intake Total 575.700 ml 441.100 ml Output Total 880 ml 1120 ml Balance -304.300 ml -678.900 ml IV Total 575.700 ml 441.100 ml Output Urine Total 880 ml 1120 ml Laboratory Tests Test 05/14/20 04:15 White Blood Count 6.1 K/UL (4.8-10.8) Red Blood Count 2.86 M/UL (4.20-5.40) L Hemoglobin 9.4 G/DL (12.0-16.0) L Hematocrit 26.1 % (37.0-47.0) L Mean Corpuscular Volume 91 FL (80-99) Mean Corpuscular Hemoglobin 32.9 PG (27.0-31.0) H Mean Corpuscular Hemoglobin Concent 36.0 G/DL (32.0-36.0) Red Cell Distribution Width 13.7 % (11.6-14.8) Platelet Count 178 K/UL (150-450) Mean Platelet Volume 7.1 FL (6.5-10.1) Neutrophils (%) (Auto) 79.1 % (45.0-75.0) H Lymphocytes (%) (Auto) 15.1 % (20.0-45.0) L Monocytes (%) (Auto) 5.4 % (1.0-10.0) Eosinophils (%) (Auto) 0.0 % (0.0-3.0) Basophils (%) (Auto) 0.4 % (0.0-2.0) Sodium Level 140 MMOL/L (136-145) Potassium Level 3.4 MMOL/L (3.5-5.1) L Chloride Level 105 MMOL/L (98-107) Carbon Dioxide Level 29 MMOL/L (21-32) Anion Gap 6 mmol/L (5-15) Blood Urea Nitrogen 31 mg/dL (7-18) H Creatinine 1.1 MG/DL (0.55-1.30) Estimat Glomerular Filtration Rate 47.8 mL/min (>60) Glucose Level 113 MG/DL (74-106) H Calcium Level 7.6 MG/DL (8.5-10.1) L Total Bilirubin 0.6 MG/DL (0.2-1.0) Direct Bilirubin 0.2 MG/DL (0.0-0.3) Aspartate Amino Transf (AST/SGOT) 23 U/L (15-37) Alanine Aminotransferase (ALT/SGPT) 16 U/L (12-78) Alkaline Phosphatase 43 U/L (46-116) L Total Protein 6.8 G/DL (6.4-8.2) Albumin 2.6 G/DL (3.4-5.0) L Globulin 4.2 g/dL Albumin/Globulin Ratio 0.6 (1.0-2.7) L Microbiology Date/Time Source Procedure Growth Status 05/12/20 17:00 Sputum Gram Stain - Final Resulted 05/12/20 17:00 Sputum Sputum Culture Pending Resulted 05/11/20 23:40 Rectum VRE Culture - Final NO VANCOMYCIN RESISTANT ENTEROCOCCUS ... Complete 05/11/20 23:40 Rectum - Final NO CARBAPENEM-RESISTANT ENTEROBACTERI... Complete 05/11/20 23:40 Nasal Nares MRSA Culture - Final Staphylococcus Aureus - Mrsa Complete 05/11/20 17:05 Blood Blood Culture - Preliminary NO GROWTH AFTER 48 HOURS Resulted 05/11/20 17:00 Urine,Clean Catch Urine Culture - Final Strep Agalactiae Group B Mixed Gram Positive Organism Complete 05/11/20 16:50 Blood Blood Culture - Preliminary NO GROWTH AFTER 48 HOURS Resulted 05/11/20 16:30 Nasopharynx SARS-CoV-2 RdRp Gene Assay - Final Complete Objective HEAD AND NECK: positive JVD.Orally intubated LUNGS: Decreased breath sounds. CARDIOVASCULAR: Regular S1 and S2 with no gallop. ABDOMEN: Obese. EXTREMITIES: Bilateral 2+ pitting edema. Cameron Davies MD May 14, 2020 15:36
[2020-05-14] MEDS: cefTRIAXone 1 GM in D5W 55 ML IVPB SCH (15:38)
[2020-05-14] MEDS: Azithromycin 250 MG in D5W 275 ML IV SCH (18:06)
[2020-05-14] MEDS ORDERED: Acetaminophen 650mg/20.3ml NG PRN ×2 (21:00)
[2020-05-14] MEDS: Maintenance Dose:Remdesivir 100mg/NS 230ml x 4 Doses IV SCH ×2 (21:09)
--- NOTE | 2020-05-14 21:25 | General Progress Note ---
Subjective ROS Limited/Unobtainable: Yes Allergies: Coded Allergies: No Known Allergies (Unverified , 05/11/20) Objective Last 24 Hour Vital Signs Date Time Temp Pulse Resp B/P (MAP) Pulse Ox O2 Delivery O2 Flow Rate FiO2 05/14/20 20:00 Mechanical Ventilator 05/14/20 20:00 60 05/14/20 20:00 110/39 05/14/20 20:00 98.4 66 12 110/39 (62) 97 05/14/20 19:38 80 19 60 05/14/20 19:00 77 12 116/40 (65) 99 05/14/20 19:00 116/40 05/14/20 19:00 72 12 107/45 (65) 98 05/14/20 18:30 75 15 118/47 (70) 98 05/14/20 18:00 107/45 05/14/20 18:00 72 12 107/45 (65) 98 05/14/20 17:30 74 15 110/33 (58) 96 05/14/20 17:00 109/37 05/14/20 17:00 85 19 109/37 (61) 98 05/14/20 16:30 65 12 106/37 (60) 96 05/14/20 16:00 99.4 71 14 113/39 (63) 98 05/14/20 16:00 60 05/14/20 16:00 68 05/14/20 16:00 113/39 05/14/20 16:00 Mechanical Ventilator 05/14/20 15:30 72 18 113/42 (65) 99 05/14/20 15:02 79 16 60 05/14/20 15:00 113/66 05/14/20 15:00 73 12 108/41 (63) 96 05/14/20 14:30 78 13 112/38 (62) 98 05/14/20 14:00 108/37 05/14/20 14:00 76 12 109/37 (61) 98 05/14/20 13:30 73 12 106/37 (60) 95 05/14/20 13:00 107/46 05/14/20 13:00 70 12 108/38 (61) 95 05/14/20 12:30 78 12 115/37 (63) 98 05/14/20 12:01 99.1 72 12 112/40 (64) 97 05/14/20 12:00 60 05/14/20 12:00 Mechanical Ventilator 05/14/20 12:00 112/40 05/14/20 12:00 76 05/14/20 12:00 72 12 112/40 (64) 97 05/14/20 11:50 76 18 60 05/14/20 11:30 76 15 113/37 (62) 98 05/14/20 11:13 83 15 40 05/14/20 11:00 77 12 110/39 (62) 99 05/14/20 11:00 121/43 05/14/20 10:30 78 17 105/36 (59) 96 05/14/20 10:00 104/33 05/14/20 10:00 66 12 104/33 (56) 94 05/14/20 09:45 71 13 110/85 (93) 98 05/14/20 09:30 69 15 104/34 (57) 96 05/14/20 09:00 80/40 05/14/20 09:00 74 13 80/40 (53) 96 05/14/20 08:49 105/30 05/14/20 08:30 78 14 109/43 (65) 98 05/14/20 08:00 Mechanical Ventilator 05/14/20 08:00 98.8 64 13 105/38 (60) 95 05/14/20 08:00 73 05/14/20 08:00 60 05/14/20 07:30 63 13 104/36 (58) 96 05/14/20 07:29 73 16 60 05/14/20 07:00 112/38 05/14/20 07:00 70 14 112/38 (62) 99 05/14/20 06:30 70 14 114/38 (63) 98 05/14/20 06:00 110/35 05/14/20 06:00 69 14 110/35 (60) 97 05/14/20 06:00 51 18 05/14/20 05:30 69 15 115/36 (62) 97 05/14/20 05:00 110/34 05/14/20 05:00 63 12 100/37 (58) 96 05/14/20 04:30 68 14 112/34 (60) 98 05/14/20 04:00 Mechanical Ventilator 05/14/20 04:00 98.8 70 16 112/37 (62) 97 05/14/20 04:00 108/32 05/14/20 03:30 66 14 108/34 (58) 95 05/14/20 03:00 68 16 85/35 (52) 96 05/14/20 03:00 104/33 05/14/20 02:43 69 16 60 05/14/20 02:30 68 17 103/34 (57) 93 05/14/20 02:00 85 16 121/35 (63) 98 05/14/20 02:00 112/39 05/14/20 01:30 75 16 124/43 (70) 96 05/14/20 01:00 76 15 121/43 (69) 96 05/14/20 01:00 121/53 05/14/20 00:30 99.0 76 15 126/48 (74) 97 05/14/20 00:00 67 15 125/52 (76) 95 05/14/20 00:00 Mechanical Ventilator 05/14/20 00:00 65 05/14/20 00:00 60 05/14/20 00:00 125/53 05/13/20 23:48 123/40 05/13/20 23:30 63 15 123/37 (65) 95 05/13/20 23:00 64 15 123/38 (66) 97 05/13/20 23:00 124/64 05/13/20 22:45 64 14 60 05/13/20 22:30 66 15 126/40 (68) 97 05/13/20 22:00 69 15 130/41 (70) 99 05/13/20 22:00 96/56 05/13/20 21:30 76 15 96/38 (57) 97 05/13/20 21:25 88/36 Intake and Output 05/13/20 05/14/20 19:00 07:00 Intake Total 575.700 ml 441.100 ml Output Total 880 ml 1120 ml Balance -304.300 ml -678.900 ml IV Total 575.700 ml 441.100 ml Output Urine Total 880 ml 1120 ml Laboratory Tests 05/14/20 04:15: White Blood Count 6.1, Red Blood Count 2.86L, Hemoglobin 9.4L, Hematocrit 26.1L, Mean Corpuscular Volume 91, Mean Corpuscular Hemoglobin 32.9H, Mean Corpuscular Hemoglobin Concent 36.0, Red Cell Distribution Width 13.7, Platelet Count 178, Mean Platelet Volume 7.1, Neutrophils (%) (Auto) 79.1H, Lymphocytes (%) (Auto) 15.1L, Monocytes (%) (Auto) 5.4, Eosinophils (%) (Auto) 0.0, Basophils (%) (Auto) 0.4, Sodium Level 140, Potassium Level 3.4L, Chloride Level 105, Carbon Dioxide Level 29, Anion Gap 6, Blood Urea Nitrogen 31H, Creatinine 1.1, Estimat Glomerular Filtration Rate 47.8, Glucose Level 113H, Calcium Level 7.6L, Total Bilirubin 0.6, Direct Bilirubin 0.2, Aspartate Amino Transf (AST/SGOT) 23, Alanine Aminotransferase (ALT/SGPT) 16, Alkaline Phosphatase 43L, Total Protein 6.8, Albumin 2.6L, Globulin 4.2, Albumin/Globulin Ratio 0.6L Height (Feet): 5 Height (Inches): 3.00 Weight (Pounds): 170 Assessment/Plan Problem List: (1) Anemia ICD Codes: D64.9 - Anemia, unspecified SNOMED: 485367416 (2) Hypercapnic respiratory failure ICD Codes: J96.92 - Respiratory failure, unspecified with hypercapnia SNOMED: 417809060 (3) COVID-19 ICD Codes: U07.1 - COVID-19 SNOMED: 555033008 (4) COPD (chronic obstructive pulmonary disease) ICD Codes: J44.9 - Chronic obstructive pulmonary disease, unspecified SNOMED: 85769283 (5) Psychosis ICD Codes: F29 - Unspecified psychosis not due to a substance or known physiol ogical condition SNOMED: 30931600 (6) Hypoxia ICD Codes: R09.02 - Hypoxemia SNOMED: 353328190 (7) Renal failure (ARF), acute on chronic ICD Codes: N17.9 - Acute kidney failure, unspecified; N18.9 - Chronic kidney disease, unspecified SNOMED: 681210169 (8) CHF exacerbation ICD Codes: I50.9 - Heart failure, unspecified SNOMED: 709383084, [id number] Status: unchanged Assessment/Plan: intubated resp failure copd exacerbation covid positive pna obesity paranoid septic shock on pressors lethargic poor prognosis chf as well Dani Perera MD May 14, 2020 21:25
[2020-05-15] VITALS (25 sets, daily range): BP systolic 92–126; BP diastolic 30–91
[2020-05-15] MEDS: DOPamine 400mg/250ml 250 ML IV SCH ×2 (02:51→14:00)
[2020-05-15 05:35] LABS: ALBUMIN 2.7 G/DL (3.4-5.0); ALBUMIN/GLOBULIN RATIO 0.7 (1.0-2.7); BILIRUBIN,DIRECT 0.2 MG/DL (0.0-0.3); BILIRUBIN,TOTAL 0.6 MG/DL (0.2-1.0); CALCIUM 7.6 MG/DL (8.5-10.1); CREATININE 1.1 MG/DL (0.55-1.30); POTASSIUM 3.6 MMOL/L (3.5-5.1)
[2020-05-15 06:01] LABS: BASOPHILS % (AUTO) 0.4 % (0.0-2.0); EOSINOPHILS % (AUTO) 0.2 % (0.0-3.0); HEMATOCRIT 23.7 % (37.0-47.0); HEMOGLOBIN 9.2 G/DL (12.0-16.0); LYMPHOCYTES % (AUTO) 16.8 % (20.0-45.0); MEAN CORPUSCULAR VOLUME 90 FL (80-99); MONOCYTES % (AUTO) 5.7 % (1.0-10.0); PLATELET COUNT 189 K/UL (150-450); RED BLOOD COUNT 2.65 M/UL (4.20-5.40); RED CELL DISTRIBUTION WIDTH 14.8 % (11.6-14.8); WHITE BLOOD COUNT 6.3 K/UL (4.8-10.8)
--- NOTE | 2020-05-15 08:39 | Infectious Diseases Prog Note ---
Assessment/Plan Assessment/Plan IMPRESSION: COVID-19 disease, Acute respiratory failure, COPD, Diastolic CHF, Mitral valve regurgitation, Anemia, Parkinson disease, schizoaffective disorder, Dementia, Obstructive sleep apnea, Hypothyroidism. MRSA carrier RECOMMENDATION: Continue dexamethasone & Remdesivir Discontinue ceftriaxone, and azithromycin Start on Cefepime & Vancomycin Will f/u sputum culture Subjective ROS Limited/Unobtainable: Yes Constitutional: Denies: fever Allergies: Coded Allergies: No Known Allergies (Unverified , 05/11/20) Objective Last 24 Hour Vital Signs Date Time Temp Pulse Resp B/P (MAP) Pulse Ox O2 Delivery O2 Flow Rate FiO2 05/15/20 08:00 68 14 105/38 (60) 98 05/15/20 08:00 Mechanical Ventilator 05/15/20 08:00 60 05/15/20 08:00 105/38 05/15/20 07:35 68 17 60 05/15/20 07:00 107/30 05/15/20 07:00 69 12 107/30 (55) 99 05/15/20 06:30 73 18 05/15/20 06:00 111/41 05/15/20 06:00 76 14 111/41 (64) 100 05/15/20 05:00 72 16 105/38 (60) 99 05/15/20 05:00 105/38 05/15/20 04:21 68 05/15/20 04:00 60 05/15/20 04:00 98.4 62 12 92/41 (58) 98 05/15/20 04:00 Mechanical Ventilator 05/15/20 04:00 92/41 05/15/20 03:18 83 18 60 05/15/20 03:00 70 13 102/37 (58) 98 05/15/20 03:00 102/37 05/15/20 02:51 126/43 05/15/20 02:45 126/43 05/15/20 02:45 74 14 126/43 (70) 99 05/15/20 02:00 62 12 119/91 (100) 94 05/15/20 02:00 119/91 05/15/20 01:00 74 13 110/42 (64) 99 05/15/20 01:00 110/42 05/15/20 00:19 74 16 60 05/15/20 00:00 Mechanical Ventilator 05/15/20 00:00 120/35 05/15/20 00:00 60 05/15/20 00:00 98.2 71 13 120/35 (63) 99 05/14/20 23:00 65 14 119/35 (63) 99 05/14/20 23:00 119/35 05/14/20 22:00 65 11 114/33 (60) 99 05/14/20 22:00 114/33 05/14/20 21:00 109/39 05/14/20 21:00 64 12 109/39 (62) 94 05/14/20 20:30 74 05/14/20 20:00 Mechanical Ventilator 05/14/20 20:00 60 05/14/20 20:00 110/39 05/14/20 20:00 98.4 66 12 110/39 (62) 97 05/14/20 19:38 80 19 60 05/14/20 19:00 77 12 116/40 (65) 99 05/14/20 19:00 116/40 05/14/20 19:00 72 12 107/45 (65) 98 05/14/20 18:30 75 15 118/47 (70) 98 05/14/20 18:00 107/45 05/14/20 18:00 72 12 107/45 (65) 98 05/14/20 17:30 74 15 110/33 (58) 96 05/14/20 17:00 109/37 05/14/20 17:00 85 19 109/37 (61) 98 05/14/20 16:30 65 12 106/37 (60) 96 05/14/20 16:00 99.4 71 14 113/39 (63) 98 05/14/20 16:00 60 05/14/20 16:00 68 05/14/20 16:00 113/39 05/14/20 16:00 Mechanical Ventilator 05/14/20 15:30 72 18 113/42 (65) 99 05/14/20 15:02 79 16 60 05/14/20 15:00 113/66 05/14/20 15:00 73 12 108/41 (63) 96 05/14/20 14:30 78 13 112/38 (62) 98 05/14/20 14:00 108/37 05/14/20 14:00 76 12 109/37 (61) 98 12/2/20 13:30 73 12 106/37 (60) 95 05/14/20 13:00 107/46 05/14/20 13:00 70 12 108/38 (61) 95 05/14/20 12:30 78 12 115/37 (63) 98 05/14/20 12:01 99.1 72 12 112/40 (64) 97 05/14/20 12:00 60 05/14/20 12:00 Mechanical Ventilator 05/14/20 12:00 112/40 05/14/20 12:00 76 05/14/20 12:00 72 12 112/40 (64) 97 05/14/20 11:50 76 18 60 05/14/20 11:30 76 15 113/37 (62) 98 05/14/20 11:13 83 15 40 05/14/20 11:00 77 12 110/39 (62) 99 05/14/20 11:00 121/43 05/14/20 10:30 78 17 105/36 (59) 96 05/14/20 10:00 104/33 05/14/20 10:00 66 12 104/33 (56) 94 05/14/20 09:45 71 13 110/85 (93) 98 05/14/20 09:30 69 15 104/34 (57) 96 05/14/20 09:00 80/40 05/14/20 09:00 74 13 80/40 (53) 96 05/14/20 08:49 105/30 Height (Feet): 5 Height (Inches): 3.00 Weight (Pounds): 170 HEENT: other - orally intubated Respiratory/Chest: other - on ventilator Cardiovascular: normal rate Abdomen: soft, non tender, other - NG tube Extremities: no edema Neurologic/Psychiatric: alert, responsive Microbiology Date/Time Source Procedure Growth Status 05/12/20 17:00 Sputum Gram Stain - Final Resulted 05/12/20 17:00 Sputum Culture - Preliminary Staphylococcus Aureus Gram Negative Bacillus 1 Resulted Laboratory Tests Test 05/15/20 04:15 White Blood Count 6.3 K/UL (4.8-10.8) Red Blood Count 2.65 M/UL (4.20-5.40) L Hemoglobin 9.2 G/DL (12.0-16.0) L Hematocrit 23.7 % (37.0-47.0) L Mean Corpuscular Volume 90 FL (80-99) Mean Corpuscular Hemoglobin 34.6 PG (27.0-31.0) H Mean Corpuscular Hemoglobin Concent 38.6 G/DL (32.0-36.0) H Red Cell Distribution Width 14.8 % (11.6-14.8) Platelet Count 189 K/UL (150-450) Mean Platelet Volume 7.8 FL (6.5-10.1) Neutrophils (%) (Auto) 77.0 % (45.0-75.0) H Lymphocytes (%) (Auto) 16.8 % (20.0-45.0) L Monocytes (%) (Auto) 5.7 % (1.0-10.0) Eosinophils (%) (Auto) 0.2 % (0.0-3.0) Basophils (%) (Auto) 0.4 % (0.0-2.0) Sodium Level 142 MMOL/L (136-145) Potassium Level 3.6 MMOL/L (3.5-5.1) Chloride Level 106 MMOL/L (98-107) Carbon Dioxide Level 28 MMOL/L (21-32) Anion Gap 8 mmol/L (5-15) Blood Urea Nitrogen 29 mg/dL (7-18) H Creatinine 1.1 MG/DL (0.55-1.30) Estimat Glomerular Filtration Rate 47.8 mL/min (>60) Glucose Level 103 MG/DL (74-106) Calcium Level 7.6 MG/DL (8.5-10.1) L Total Bilirubin 0.6 MG/DL (0.2-1.0) Direct Bilirubin 0.2 MG/DL (0.0-0.3) Aspartate Amino Transf (AST/SGOT) 24 U/L (15-37) Alanine Aminotransferase (ALT/SGPT) 11 U/L (12-78) L Alkaline Phosphatase 44 U/L (46-116) L Total Protein 6.8 G/DL (6.4-8.2) Albumin 2.7 G/DL (3.4-5.0) L Globulin 4.1 g/dL Albumin/Globulin Ratio 0.7 (1.0-2.7) L Current Medications Medications (Trade) Dose Ordered Sig/Angie Route PRN Reason Start Time Stop Time Status Last Admin Dose Admin Acetaminophen (Tylenol) 650 mg Q6H PRN NG Fever >100.5 05/14/20 21:00 06/13/20 20:59 05/14/20 21:10 Acetaminophen (Tylenol) 650 mg Q6H PRN NG Mild Pain (Pain Scale 1-3) 05/14/20 21:00 06/13/20 20:59 Azithromycin 250 mg/Dextrose 275 ml @ 275 mls/hr Q24HRS IV 05/12/20 17:00 05/17/20 16:59 05/14/20 18:06 Ceftriaxone Sodium 1 gm/ Dextrose 55 ml @ 110 mls/hr Q24H IVPB 05/12/20 16:00 05/19/20 15:59 05/14/20 15:38 Chlorhexidine Gluconate (Ruba-Hex 2%) 1 applic DAILY@1999 TOPIC 05/15/20 20:00 08/13/20 19:59 Clonidine HCl (Catapres Tab) 0.1 mg Q4H PRN ORAL sbp>170 05/11/20 17:15 08/09/20 17:14 Dexamethasone Sodium Phosphate (Decadron 10mg/ ml Inj) 6 mg DAILY IV 05/12/20 15:45 05/21/20 15:44 05/14/20 08:48 Dopamine HCl/ Dextrose 250 ml @ 6.825 mls/ hr Q24H IV 05/12/20 09:45 05/15/20 09:42 05/15/20 02:51 Haloperidol Lactate (Haldol) 5 mg Q6H PRN IM Agitation 05/13/20 20:45 06/27/20 20:44 Levothyroxine Sodium (Synthroid) 50 mcg DAILY@0630 ORAL 05/14/20 06:30 06/13/20 06:29 05/15/20 05:46 Remdesivir 100 mg/ Sodium Chloride 250 ml @ 250 mls/hr Q24H IV 05/14/20 21:00 05/17/20 21:59 05/14/20 21:09 eLi Chan MD May 15, 2020 08:39
[2020-05-15] MEDS: Cefepime HCl 1 GM in D5W 55 ML IVPB SCH (09:31)
[2020-05-15] MEDS: dexAMETHasone 10mg/ml Inj IV SCH (09:31)
--- NOTE | 2020-05-15 10:27 | Pulmonology Progress Note ---
Subjective ROS Limited/Unobtainable: Yes Interval Events: Remains intubated Constitutional: Denies: fever HEENT: Repors: no symptoms Respiratory: Reports: no symptoms Cardiovascular: Reports: no symptoms Gastrointestinal/Abdominal: Reports: no symptoms Genitourinary: Reports: no symptoms Allergies: Coded Allergies: No Known Allergies (Unverified , 05/11/20) Objective Last 24 Hour Vital Signs Date Time Temp Pulse Resp B/P (MAP) Pulse Ox O2 Delivery O2 Flow Rate FiO2 05/15/20 10:00 62 12 106/35 (58) 96 05/15/20 09:00 70 13 102/32 (55) 99 05/15/20 08:00 68 14 105/38 (60) 98 05/15/20 08:00 Mechanical Ventilator 05/15/20 08:00 60 05/15/20 08:00 105/38 05/15/20 07:53 61 05/15/20 07:35 68 17 60 05/15/20 07:00 107/30 05/15/20 07:00 69 12 107/30 (55) 99 05/15/20 06:30 73 18 05/15/20 06:00 111/41 05/15/20 06:00 76 14 111/41 (64) 100 05/15/20 05:00 72 16 105/38 (60) 99 05/15/20 05:00 105/38 05/15/20 04:21 68 05/15/20 04:00 60 05/15/20 04:00 98.4 62 12 92/41 (58) 98 05/15/20 04:00 Mechanical Ventilator 05/15/20 04:00 92/41 05/15/20 03:18 83 18 60 05/15/20 03:00 70 13 102/37 (58) 98 05/15/20 03:00 102/37 05/15/20 02:51 126/43 05/15/20 02:45 126/43 05/15/20 02:45 74 14 126/43 (70) 99 05/15/20 02:00 62 12 119/91 (100) 94 05/15/20 02:00 119/91 05/15/20 01:00 74 13 110/42 (64) 99 05/15/20 01:00 110/42 05/15/20 00:19 74 16 60 05/15/20 00:00 Mechanical Ventilator 05/15/20 00:00 120/35 05/15/20 00:00 60 05/15/20 00:00 98.2 71 13 120/35 (63) 99 05/14/20 23:00 65 14 119/35 (63) 99 05/14/20 23:00 119/35 05/14/20 22:00 65 11 114/33 (60) 99 05/14/20 22:00 114/33 05/14/20 21:00 109/39 05/14/20 21:00 64 12 109/39 (62) 94 05/14/20 20:30 74 05/14/20 20:00 Mechanical Ventilator 05/14/20 20:00 60 05/14/20 20:00 110/39 05/14/20 20:00 98.4 66 12 110/39 (62) 97 05/14/20 19:38 80 19 60 05/14/20 19:00 77 12 116/40 (65) 99 05/14/20 19:00 116/40 05/14/20 19:00 72 12 107/45 (65) 98 05/14/20 18:30 75 15 118/47 (70) 98 05/14/20 18:00 107/45 05/14/20 18:00 72 12 107/45 (65) 98 05/14/20 17:30 74 15 110/33 (58) 96 05/14/20 17:00 109/37 05/14/20 17:00 85 19 109/37 (61) 98 05/14/20 16:30 65 12 106/37 (60) 96 05/14/20 16:00 99.4 71 14 113/39 (63) 98 05/14/20 16:00 60 05/14/20 16:00 68 05/14/20 16:00 113/39 05/14/20 16:00 Mechanical Ventilator 05/14/20 15:30 72 18 113/42 (65) 99 05/14/20 15:02 79 16 60 05/14/20 15:00 113/66 05/14/20 15:00 73 12 108/41 (63) 96 05/14/20 14:30 78 13 112/38 (62) 98 05/14/20 14:00 108/37 05/14/20 14:00 76 12 109/37 (61) 98 05/14/20 13:30 73 12 106/37 (60) 95 05/14/20 13:00 107/46 05/14/20 13:00 70 12 108/38 (61) 95 05/14/20 12:30 78 12 115/37 (63) 98 05/14/20 12:01 99.1 72 12 112/40 (64) 97 05/14/20 12:00 60 05/14/20 12:00 Mechanical Ventilator 05/14/20 12:00 112/40 05/14/20 12:00 76 05/14/20 12:00 72 12 112/40 (64) 97 05/14/20 11:50 76 18 60 05/14/20 11:30 76 15 113/37 (62) 98 05/14/20 11:13 83 15 40 05/14/20 11:00 77 12 110/39 (62) 99 05/14/20 11:00 121/43 05/14/20 10:30 78 17 105/36 (59) 96 Intake and Output 05/14/20 05/15/20 19:00 07:00 Intake Total 593.325 ml 444.04498 ml Output Total 655 ml 960 ml Balance -61.675 ml -515.62416 ml Free Water 20 ml IV Total 573.325 ml 384.00412 ml Other 60 ml Output Urine Total 655 ml 960 ml General Appearance: no acute distress HEENT: normocephalic Respiratory: decreased breath sounds, other - On ventilator, FiO2 60% Cardiovascular: JVD Abdomen: soft, non tender, other - obese, NG tube Extremities: other - b/l 2+ pitting edema Neurologic: disoriented Microbiology Date/Time Source Procedure Growth Status 05/12/20 17:00 Sputum Gram Stain - Final Resulted 05/12/20 17:00 Sputum Culture - Preliminary Staphylococcus Aureus Gram Negative Bacillus 1 Resulted Laboratory Tests 05/15/20 04:15: White Blood Count 6.3, Red Blood Count 2.65L, Hemoglobin 9.2L, Hematocrit 23.7L, Mean Corpuscular Volume 90, Mean Corpuscular Hemoglobin 34.6H, Mean Corpuscular Hemoglobin Concent 38.6H, Red Cell Distribution Width 14.8, Platelet Count 189, Mean Platelet Volume 7.8, Neutrophils (%) (Auto) 77.0H, Lymphocytes (%) (Auto) 16.8L, Monocytes (%) (Auto) 5.7, Eosinophils (%) (Auto) 0.2, Basophils (%) (Auto) 0.4, Sodium Level 142, Potassium Level 3.6, Chloride Level 106, Carbon Dioxide Level 28, Anion Gap 8, Blood Urea Nitrogen 29H, Creatinine 1.1, Estimat Glomerular Filtration Rate 47.8, Glucose Level 103, Calcium Level 7.6L, Total Bilirubin 0.6, Direct Bilirubin 0.2, Aspartate Amino Transf (AST/SGOT) 24, Alanine Aminotransferase (ALT/SGPT) 11L, Alkaline Phosphatase 44L, Total Protein 6.8, Albumin 2.7L, Globulin 4.1, Albumin/Globulin Ratio 0.7L 05/15/20 09:22: Arterial Blood pH 7.540H, Arterial Blood Partial Pressure CO2 30.2L, Arterial Blood Partial Pressure O2 64.3L, Arterial Blood HCO3 25.3, Arterial Blood Oxygen Saturation 94.0L, Arterial Blood Base Excess 3.0H, Raphael Test Positive Current Medications Medications (Trade) Dose Ordered Sig/Angie Route PRN Reason Start Time Stop Time Status Last Admin Dose Admin Acetaminophen (Tylenol) 650 mg Q6H PRN NG Fever >100.5 05/14/20 21:00 06/13/20 20:59 05/14/20 21:10 Acetaminophen (Tylenol) 650 mg Q6H PRN NG Mild Pain (Pain Scale 1-3) 05/14/20 21:00 06/13/20 20:59 Cefepime HCl 1 gm/ Dextrose 55 ml @ 110 mls/hr DAILY IVPB 05/15/20 10:00 05/22/20 09:59 05/15/20 09:31 Chlorhexidine Gluconate (Ruba-Hex 2%) 1 applic DAILY@2000 TOPIC 05/15/20 20:00 08/13/20 19:59 Clonidine HCl (Catapres Tab) 0.1 mg Q4H PRN ORAL sbp>170 05/11/20 17:15 08/09/20 17:14 Dexamethasone Sodium Phosphate (Decadron 10mg/ ml Inj) 6 mg DAILY IV 05/12/20 15:45 05/21/20 15:44 05/15/20 09:31 Haloperidol Lactate (Haldol) 5 mg Q6H PRN IM Agitation 05/13/20 20:45 06/27/20 20:44 Levothyroxine Sodium (Synthroid) 50 mcg DAILY@0630 ORAL 05/14/20 06:30 06/13/20 06:29 05/15/20 05:46 Remdesivir 100 mg/ Sodium Chloride 250 ml @ 250 mls/hr Q24H IV 05/14/20 21:00 05/17/20 21:59 05/14/20 21:09 Vancomycin HCl 300 ml @ 150 mls/hr ONCE IVPB 05/15/20 11:00 05/15/20 12:00 Vancomycin HCl ([facility] pharmacy to dose) 1 ea DAILY PRN MISC Per rx protocol 05/15/20 08:45 06/14/20 08:44 Vancomycin HCl 1.25 gm/Dextrose 275 ml @ 183.708 mls/hr Q24H IVPB 05/16/20 11:00 05/21/20 10:59 Assessment/Plan Assessment/Plan 1. Bilateral COVID-19 multilobar pneumonia. - Pt orally intubated; attempted wean yesterday; will attempt again today - Afebrile - Continue Azithromycin, Ceftriaxone, dexamethasone - Remdesivir continuing 2. Hx of COPD. 3. Schizophrenia/psychosis - On dopamine, haloperidol 4. Hypoxia. - FiO2 60% - Cont vent; AC mode; attempt wean again today 5. Anemia - Improving; hgb 9.1 -> 10.3 6. Azotemia/renal failure - UA: Positive leuk esterase, protein, RBC, WBC (05/11/2020) - BUN 47 -> 40 Sincere Myers MD May 15, 2020 10:27
[2020-05-15] MEDS ORDERED: Vancomycin 1.5gm/300ml Premix IVPB SCH (11:00)
--- NOTE | 2020-05-15 12:23 | Nephrology Progress Note ---
Assessment/Plan Problem List: (1) Renal failure (ARF), acute on chronic (2) Hypercapnic respiratory failure (3) CHF exacerbation Assessment Azotemia/renal failure Acute respiratory failure most likely secondary to CHF, on mechanical ventilation History of COPD Hypertension Hyperlipemia Schizophrenia/psychosis Plan May 15: Labs reviewed. Renal parameters stable. Discussed with RN. Patient remains intubated on ventilator and full code. Continue per consultants. May 14: Labs reviewed. Discussed with RN. Abnormal electrolyte addressed. Continue per current management. Patient seen in ICU. Discussed with RN. Today's labs pending. Patient remains on 6 mics of dopamine. Pulmonary support Monitor intake and output Monitor electrolytes Continue per consultants Per orders Subjective ROS Limited/Unobtainable: Yes Objective Objective Last 24 Hour Vital Signs Date Time Temp Pulse Resp B/P (MAP) Pulse Ox O2 Delivery O2 Flow Rate FiO2 05/15/20 11:00 68 11 111/31 (57) 99 05/15/20 11:00 70 16 70 05/15/20 10:00 62 12 106/35 (58) 96 05/15/20 09:00 70 13 102/32 (55) 99 05/15/20 08:00 68 14 105/38 (60) 98 05/15/20 08:00 Mechanical Ventilator 05/15/20 08:00 60 05/15/20 08:00 105/38 05/15/20 07:53 61 05/15/20 07:35 68 17 60 05/15/20 07:00 107/30 05/15/20 07:00 69 12 107/30 (55) 99 05/15/20 06:30 73 18 05/15/20 06:00 111/41 05/15/20 06:00 76 14 111/41 (64) 100 05/15/20 05:00 72 16 105/38 (60) 99 05/15/20 05:00 105/38 05/15/20 04:21 68 05/15/20 04:00 60 05/15/20 04:00 98.4 62 12 92/41 (58) 98 05/15/20 04:00 Mechanical Ventilator 05/15/20 04:00 92/41 05/15/20 03:18 83 18 60 05/15/20 03:00 70 13 102/37 (58) 98 05/15/20 03:00 102/37 05/15/20 02:51 126/43 05/15/20 02:45 126/43 05/15/20 02:45 74 14 126/43 (70) 99 05/15/20 02:00 62 12 119/91 (100) 94 05/15/20 02:00 119/91 05/15/20 01:00 74 13 110/42 (64) 99 05/15/20 01:00 110/42 05/15/20 00:19 74 16 60 05/15/20 00:00 Mechanical Ventilator 05/15/20 00:00 120/35 05/15/20 00:00 60 05/15/20 00:00 98.2 71 13 120/35 (63) 99 05/14/20 23:00 65 14 119/35 (63) 99 05/14/20 23:00 119/35 05/14/20 22:00 65 11 114/33 (60) 99 05/14/20 22:00 114/33 05/14/20 21:00 109/39 05/14/20 21:00 64 12 109/39 (62) 94 05/14/20 20:30 74 05/14/20 20:00 Mechanical Ventilator 05/14/20 20:00 60 05/14/20 20:00 110/39 05/14/20 20:00 98.4 66 12 110/39 (62) 97 05/14/20 19:38 80 19 60 05/14/20 19:00 77 12 116/40 (65) 99 05/14/20 19:00 116/40 05/14/20 19:00 72 12 107/45 (65) 98 05/14/20 18:30 75 15 118/47 (70) 98 05/14/20 18:00 107/45 05/14/20 18:00 72 12 107/45 (65) 98 05/14/20 17:30 74 15 110/33 (58) 96 05/14/20 17:00 109/37 05/14/20 17:00 85 19 109/37 (61) 98 05/14/20 16:30 65 12 106/37 (60) 96 05/14/20 16:00 99.4 71 14 113/39 (63) 98 05/14/20 16:00 60 12/2/20 16:00 68 05/14/20 16:00 113/39 05/14/20 16:00 Mechanical Ventilator 05/14/20 15:30 72 18 113/42 (65) 99 05/14/20 15:02 79 16 60 05/14/20 15:00 113/66 05/14/20 15:00 73 12 108/41 (63) 96 05/14/20 14:30 78 13 112/38 (62) 98 05/14/20 14:00 108/37 05/14/20 14:00 76 12 109/37 (61) 98 05/14/20 13:30 73 12 106/37 (60) 95 05/14/20 13:00 107/46 05/14/20 13:00 70 12 108/38 (61) 95 05/14/20 12:30 78 12 115/37 (63) 98 Intake and Output 05/14/20 05/15/20 19:00 07:00 Intake Total 593.325 ml 444.62729 ml Output Total 655 ml 960 ml Balance -61.675 ml -515.82759 ml Free Water 20 ml IV Total 573.325 ml 384.11145 ml Other 60 ml Output Urine Total 655 ml 960 ml Current Medications Medications (Trade) Dose Ordered Sig/Angie Route PRN Reason Start Time Stop Time Status Last Admin Dose Admin Acetaminophen (Tylenol) 650 mg Q6H PRN NG Fever >100.5 05/14/20 21:00 06/13/20 20:59 05/14/20 21:10 Acetaminophen (Tylenol) 650 mg Q6H PRN NG Mild Pain (Pain Scale 1-3) 05/14/20 21:00 06/13/20 20:59 Cefepime HCl 1 gm/ Dextrose 55 ml @ 110 mls/hr DAILY IVPB 05/15/20 10:00 05/22/20 09:59 05/15/20 09:31 Chlorhexidine Gluconate (Ruba-Hex 2%) 1 applic DAILY@2000 TOPIC 05/15/20 20:00 08/13/20 19:59 Clonidine HCl (Catapres Tab) 0.1 mg Q4H PRN ORAL sbp>170 05/11/20 17:15 08/09/20 17:14 Dexamethasone Sodium Phosphate (Decadron 10mg/ ml Inj) 6 mg DAILY IV 05/12/20 15:45 05/21/20 15:44 05/15/20 09:31 Haloperidol Lactate (Haldol) 5 mg Q6H PRN IM Agitation 05/13/20 20:45 06/27/20 20:44 Levothyroxine Sodium (Synthroid) 50 mcg DAILY@0630 ORAL 05/14/20 06:30 06/13/20 06:29 05/15/20 05:46 Remdesivir 100 mg/ Sodium Chloride 250 ml @ 250 mls/hr Q24H IV 05/14/20 21:00 05/17/20 21:59 05/14/20 21:09 Vancomycin HCl (Vanco pharmacy to dose) 1 ea DAILY PRN MISC Per rx protocol 05/15/20 08:45 06/14/20 08:44 Vancomycin HCl 1.25 gm/Dextrose 275 ml @ 183.708 mls/hr Q24H IVPB 05/16/20 11:00 05/21/20 10:59 Laboratory Tests 05/15/20 04:15: White Blood Count 6.3, Red Blood Count 2.65L, Hemoglobin 9.2L, Hematocrit 23.7L, Mean Corpuscular Volume 90, Mean Corpuscular Hemoglobin 34.6H, Mean Corpuscular Hemoglobin Concent 38.6H, Red Cell Distribution Width 14.8, Platelet Count 189, Mean Platelet Volume 7.8, Neutrophils (%) (Auto) 77.0H, Lymphocytes (%) (Auto) 16.8L, Monocytes (%) (Auto) 5.7, Eosinophils (%) (Auto) 0.2, Basophils (%) (Auto) 0.4, Sodium Level 142, Potassium Level 3.6, Chloride Level 106, Carbon Dioxide Level 28, Anion Gap 8, Blood Urea Nitrogen 29H, Creatinine 1.1, Estimat Glomerular Filtration Rate 47.8, Glucose Level 103, Calcium Level 7.6L, Total Bilirubin 0.6, Direct Bilirubin 0.2, Aspartate Amino Transf (AST/SGOT) 24, Alanine Aminotransferase (ALT/SGPT) 11L, Alkaline Phosphatase 44L, Total Protein 6.8, Albumin 2.7L, Globulin 4.1, Albumin/Globulin Ratio 0.7L 05/15/20 09:22: Arterial Blood pH 7.540H, Arterial Blood Partial Pressure CO2 30.2L, Arterial Blood Partial Pressure O2 64.3L, Arterial Blood HCO3 25.3, Arterial Blood Oxygen Saturation 94.0L, Arterial Blood Base Excess 3.0H, Raphael Test Positive Height (Feet): 5 Height (Inches): 3.00 Weight (Pounds): 170 General Appearance: no apparent distress EENT: other - On mechanical ventilation Cardiovascular: normal rate Respiratory/Chest: decreased breath sounds Abdomen: distended Bryan Ochoa MD May 15, 2020 12:23
[2020-05-15] MEDS ORDERED: NS 275ml ONE (14:16)
--- NOTE | 2020-05-15 16:01 | Cardiac Electrophysiology PN ---
Assessment/Plan Assessment/Plan 1. Shortness of breath due to Covid PNA Intubated on the Vent with 70% Fio2 2. History of COPD. 3. Hypotension. On Dopamine 2 mcg . EF 55% 4. Bradycardia on Dopamine 5. Schizophrenia and psychosis. Subjective Subjective Intubated in ICU . Covid is positive. On 70% Fio2 and 2 Mcg of Dopamine Failed weaning Objective Last 24 Hour Vital Signs Date Time Temp Pulse Resp B/P (MAP) Pulse Ox O2 Delivery O2 Flow Rate FiO2 05/15/20 15:00 70 16 107/86 (93) 100 05/15/20 14:00 109/35 05/15/20 14:00 69 13 95/30 (51) 99 05/15/20 13:00 109/42 05/15/20 13:00 73 15 109/42 (64) 99 05/15/20 12:00 99.0 63 12 109/39 (62) 97 05/15/20 12:00 109/39 05/15/20 12:00 Mechanical Ventilator 05/15/20 12:00 63 05/15/20 12:00 70 05/15/20 11:00 68 11 111/31 (57) 99 05/15/20 11:00 70 16 70 05/15/20 11:00 111/31 05/15/20 10:00 62 12 106/35 (58) 96 05/15/20 10:00 106/35 05/15/20 09:00 102/32 05/15/20 09:00 70 13 102/32 (55) 99 05/15/20 08:00 68 14 105/38 (60) 98 05/15/20 08:00 Mechanical Ventilator 05/15/20 08:00 60 05/15/20 08:00 105/38 05/15/20 07:53 61 05/15/20 07:35 68 17 60 05/15/20 07:00 107/30 05/15/20 07:00 69 12 107/30 (55) 99 05/15/20 06:30 73 18 05/15/20 06:00 111/41 05/15/20 06:00 76 14 111/41 (64) 100 05/15/20 05:00 72 16 105/38 (60) 99 05/15/20 05:00 105/38 05/15/20 04:21 68 05/15/20 04:00 60 05/15/20 04:00 98.4 62 12 92/41 (58) 98 05/15/20 04:00 Mechanical Ventilator 05/15/20 04:00 92/41 05/15/20 03:18 83 18 60 05/15/20 03:00 70 13 102/37 (58) 98 05/15/20 03:00 102/37 05/15/20 02:51 126/43 05/15/20 02:45 126/43 05/15/20 02:45 74 14 126/43 (70) 99 05/15/20 02:00 62 12 119/91 (100) 94 05/15/20 02:00 119/91 05/15/20 01:00 74 13 110/42 (64) 99 05/15/20 01:00 110/42 05/15/20 00:19 74 16 60 05/15/20 00:00 Mechanical Ventilator 05/15/20 00:00 120/35 05/15/20 00:00 60 05/15/20 00:00 98.2 71 13 120/35 (63) 99 05/14/20 23:00 65 14 119/35 (63) 99 05/14/20 23:00 119/35 05/14/20 22:00 65 11 114/33 (60) 99 05/14/20 22:00 114/33 05/14/20 21:00 109/39 05/14/20 21:00 64 12 109/39 (62) 94 05/14/20 20:30 74 05/14/20 20:00 Mechanical Ventilator 05/14/20 20:00 60 05/14/20 20:00 110/39 05/14/20 20:00 98.4 66 12 110/39 (62) 97 05/14/20 19:38 80 19 60 05/14/20 19:00 77 12 116/40 (65) 99 05/14/20 19:00 116/40 05/14/20 19:00 72 12 107/45 (65) 98 05/14/20 18:30 75 15 118/47 (70) 98 05/14/20 18:00 107/45 05/14/20 18:00 72 12 107/45 (65) 98 05/14/20 17:30 74 15 110/33 (58) 96 12/2/20 17:00 109/37 05/14/20 17:00 85 19 109/37 (61) 98 05/14/20 16:30 65 12 106/37 (60) 96 Intake and Output 05/14/20 05/15/20 19:00 07:00 Intake Total 593.325 ml 444.05562 ml Output Total 655 ml 960 ml Balance -61.675 ml -515.31060 ml Free Water 20 ml IV Total 573.325 ml 384.87084 ml Other 60 ml Output Urine Total 655 ml 960 ml Laboratory Tests Test 05/15/20 04:15 05/15/20 09:22 White Blood Count 6.3 K/UL (4.8-10.8) Red Blood Count 2.65 M/UL (4.20-5.40) L Hemoglobin 9.2 G/DL (12.0-16.0) L Hematocrit 23.7 % (37.0-47.0) L Mean Corpuscular Volume 90 FL (80-99) Mean Corpuscular Hemoglobin 34.6 PG (27.0-31.0) H Mean Corpuscular Hemoglobin Concent 38.6 G/DL (32.0-36.0) H Red Cell Distribution Width 14.8 % (11.6-14.8) Platelet Count 189 K/UL (150-450) Mean Platelet Volume 7.8 FL (6.5-10.1) Neutrophils (%) (Auto) 77.0 % (45.0-75.0) H Lymphocytes (%) (Auto) 16.8 % (20.0-45.0) L Monocytes (%) (Auto) 5.7 % (1.0-10.0) Eosinophils (%) (Auto) 0.2 % (0.0-3.0) Basophils (%) (Auto) 0.4 % (0.0-2.0) Sodium Level 142 MMOL/L (136-145) Potassium Level 3.6 MMOL/L (3.5-5.1) Chloride Level 106 MMOL/L (98-107) Carbon Dioxide Level 28 MMOL/L (21-32) Anion Gap 8 mmol/L (5-15) Blood Urea Nitrogen 29 mg/dL (7-18) H Creatinine 1.1 MG/DL (0.55-1.30) Estimat Glomerular Filtration Rate 47.8 mL/min (>60) Glucose Level 103 MG/DL (74-106) Calcium Level 7.6 MG/DL (8.5-10.1) L Total Bilirubin 0.6 MG/DL (0.2-1.0) Direct Bilirubin 0.2 MG/DL (0.0-0.3) Aspartate Amino Transf (AST/SGOT) 24 U/L (15-37) Alanine Aminotransferase (ALT/SGPT) 11 U/L (12-78) L Alkaline Phosphatase 44 U/L (46-116) L Total Protein 6.8 G/DL (6.4-8.2) Albumin 2.7 G/DL (3.4-5.0) L Globulin 4.1 g/dL Albumin/Globulin Ratio 0.7 (1.0-2.7) L Arterial Blood pH 7.540 (7.350-7.450) Arterial Blood Partial Pressure CO2 30.2 mmHg (35.0-45.0) L Arterial Blood Partial Pressure O2 64.3 mmHg (75.0-100.0) L Arterial Blood HCO3 25.3 mmol/L (22.0-26.0) Arterial Blood Oxygen Saturation 94.0 % (95-100) L Arterial Blood Base Excess 3.0 (-2-2) H Raphael Test Positive Microbiology Date/Time Source Procedure Growth Status 05/12/20 17:00 Sputum Gram Stain - Final Resulted 05/12/20 17:00 Sputum Culture - Preliminary Staphylococcus Aureus Gram Negative Bacillus 1 Resulted Objective HEAD AND NECK: positive JVD.Orally intubated LUNGS: Decreased breath sounds. CARDIOVASCULAR: Regular S1 and S2 with no gallop. ABDOMEN: Obese. EXTREMITIES: Bilateral 2+ pitting edema. Cameron Davies MD May 15, 2020 16:01
[2020-05-15] MEDS: Dyna-Hex 2% Top Sol 2oz TOPIC SCH (20:10)
[2020-05-15] MEDS: Maintenance Dose:Remdesivir 100mg/NS 230ml x 4 Doses IV SCH ×2 (20:29)
--- NOTE | 2020-05-15 20:54 | Psychiatric Progress Note ---
Psychiatry Progress Note Psychiatry Progress Note Medications Current Medications Medications (Trade) Dose Ordered Sig/Angie Route PRN Reason Start Time Stop Time Status Last Admin Dose Admin Acetaminophen (Tylenol) 650 mg Q6H PRN NG Fever >100.5 05/14/20 21:00 06/13/20 20:59 05/14/20 21:10 Acetaminophen (Tylenol) 650 mg Q6H PRN NG Mild Pain (Pain Scale 1-3) 05/14/20 21:00 06/13/20 20:59 Cefepime HCl 1 gm/ Dextrose 55 ml @ 110 mls/hr DAILY IVPB 05/15/20 10:00 05/22/20 09:59 05/15/20 09:31 Chlorhexidine Gluconate (Ruba-Hex 2%) 1 applic DAILY@1999 TOPIC 05/15/20 20:00 08/13/20 19:59 05/15/20 20:10 Clonidine HCl (Catapres Tab) 0.1 mg Q4H PRN ORAL sbp>170 05/11/20 17:15 08/09/20 17:14 Dexamethasone Sodium Phosphate (Decadron 10mg/ ml Inj) 6 mg DAILY IV 05/12/20 15:45 05/21/20 15:44 05/15/20 09:31 Dopamine HCl/ Dextrose 250 ml @ 0 mls/hr Q24H IV 05/15/20 13:00 05/18/20 12:46 05/15/20 14:00 Haloperidol Lactate (Haldol) 5 mg Q6H PRN IM Agitation 05/13/20 20:45 06/27/20 20:44 Levothyroxine Sodium (Synthroid) 50 mcg DAILY@0630 ORAL 05/14/20 06:30 06/13/20 06:29 05/15/20 05:46 Remdesivir 100 mg/ Sodium Chloride 250 ml @ 250 mls/hr Q24H IV 05/14/20 21:00 05/17/20 21:59 05/15/20 20:29 Vancomycin HCl (Vanco pharmacy to dose) 1 ea DAILY PRN MISC Per rx protocol 05/15/20 08:45 06/14/20 08:44 Vancomycin HCl 1.25 gm/Dextrose 275 ml @ 183.708 mls/hr Q24H IVPB 05/16/20 11:00 05/21/20 10:59 Neurological/Psychiatric: Reports: anxiety, depressed, emotional problems Allergies: Coded Allergies: LITHIUM (Verified Allergy, Unknown, 02/07/19) Objective Data Height (Feet): 5 Height (Inches): 3.00 Weight (Pounds): 170 General Appearance: no apparent distress, alert, agitated Additional Comments: waxing and waning consciousness. Disoriented. Mood is neutral to agitation. Affect is flat. Thought process, there is paucity of thought process. Thought content, no suicidal or homicidal ideation. Cognition is impaired. Insight and judgment is impaired. Assessment/Plan Status: unchanged Assessment/Plan: Social Circle I Acute toxic encephalopathy. Schizophrenia. Social Circle II Deferred. Social Circle III COVID-19. Social Circle IV Low. Social Circle V 20 PLAN: 1. Discontinue the IV Haldol. 2. Start the patient on Haldol IM. 3. The patient benefits from bilateral soft restraints. 4. Provide the patient with reality orientation. 5. Discussed with the nurse. Kiana Hernandez MD May 15, 2020 20:54
[2020-05-16] VITALS (24 sets, daily range): BP systolic 105–144; BP diastolic 31–103
[2020-05-16 05:25] LABS: BASOPHILS % (AUTO) 0.2 % (0.0-2.0); HEMATOCRIT 26.5 % (37.0-47.0); HEMOGLOBIN 9.7 G/DL (12.0-16.0); LYMPHOCYTES % (AUTO) 15.4 % (20.0-45.0); MEAN CORPUSCULAR VOLUME 93 FL (80-99); MONOCYTES % (AUTO) 5.8 % (1.0-10.0); NEUTROPHILS % (AUTO) 78.6 % (45.0-75.0); PLATELET COUNT 219 K/UL (150-450); RED BLOOD COUNT 2.86 M/UL (4.20-5.40); RED CELL DISTRIBUTION WIDTH 13.4 % (11.6-14.8); WHITE BLOOD COUNT 7.1 K/UL (4.8-10.8)
[2020-05-16 05:39] LABS: ALBUMIN 2.8 G/DL (3.4-5.0); ALBUMIN/GLOBULIN RATIO 0.7 (1.0-2.7); BILIRUBIN,DIRECT 0.2 MG/DL (0.0-0.3); BILIRUBIN,TOTAL 0.7 MG/DL (0.2-1.0); CALCIUM 7.4 MG/DL (8.5-10.1); CREATININE 1.1 MG/DL (0.55-1.30); POTASSIUM 3.4 MMOL/L (3.5-5.1)
[2020-05-16] MEDS: dexAMETHasone 10mg/ml Inj IV SCH (08:26)
[2020-05-16] MEDS: Cefepime HCl 1 GM in D5W 55 ML IVPB SCH (08:27)
--- NOTE | 2020-05-16 10:08 | Pulmonology Progress Note ---
Subjective ROS Limited/Unobtainable: Yes Interval Events: Remains intubated Constitutional: Denies: fever HEENT: Repors: no symptoms Respiratory: Reports: no symptoms Cardiovascular: Reports: no symptoms Gastrointestinal/Abdominal: Reports: no symptoms Genitourinary: Reports: no symptoms Allergies: Coded Allergies: No Known Allergies (Unverified , 05/11/20) Objective Last 24 Hour Vital Signs Date Time Temp Pulse Resp B/P (MAP) Pulse Ox O2 Delivery O2 Flow Rate FiO2 05/16/20 07:00 63 13 141/103 (116) 96 05/16/20 06:30 67 18 05/16/20 06:00 62 12 125/39 (67) 97 05/16/20 05:00 61 12 126/35 (65) 94 05/16/20 04:00 Mechanical Ventilator 05/16/20 04:00 70 05/16/20 04:00 61 05/16/20 04:00 61 12 121/42 (68) 95 05/16/20 03:45 70 17 70 05/16/20 03:00 73 13 123/45 (71) 99 05/16/20 03:00 123/45 05/16/20 02:00 105/31 05/16/20 02:00 60 12 105/31 (55) 93 05/16/20 01:00 63 12 111/39 (63) 91 05/16/20 01:00 111/39 05/16/20 00:00 Mechanical Ventilator 05/16/20 00:00 108/40 05/16/20 00:00 99.0 70 16 108/40 (62) 98 05/15/20 23:45 83 12 70 05/15/20 23:00 66 12 105/39 (61) 91 05/15/20 23:00 105/39 05/15/20 22:00 97/63 05/15/20 22:00 71 12 97/63 (74) 98 05/15/20 21:00 62 12 105/38 (60) 92 05/15/20 21:00 105/38 05/15/20 20:00 Mechanical Ventilator 05/15/20 20:00 99.1 70 13 119/40 (66) 100 05/15/20 20:00 70 05/15/20 20:00 119/40 05/15/20 20:00 70 05/15/20 19:51 61 12 70 05/15/20 19:00 74 15 116/40 (65) 100 05/15/20 19:00 116/40 05/15/20 18:00 117/42 05/15/20 18:00 73 16 117/42 (67) 95 05/15/20 17:00 110/34 05/15/20 17:00 62 12 110/34 (59) 95 05/15/20 16:00 Mechanical Ventilator 05/15/20 16:00 108/35 05/15/20 16:00 99.0 63 12 108/35 (59) 95 05/15/20 16:00 70 05/15/20 15:30 71 16 70 05/15/20 15:19 72 05/15/20 15:00 107/86 05/15/20 15:00 70 16 107/86 (93) 100 05/15/20 14:00 109/35 05/15/20 14:00 69 13 95/30 (51) 99 05/15/20 13:00 109/42 05/15/20 13:00 73 15 109/42 (64) 99 05/15/20 12:00 99.0 63 12 109/39 (62) 97 05/15/20 12:00 109/39 05/15/20 12:00 Mechanical Ventilator 05/15/20 12:00 63 05/15/20 12:00 70 05/15/20 11:00 68 11 111/31 (57) 99 05/15/20 11:00 70 16 70 05/15/20 11:00 111/31 Intake and Output 05/15/20 05/16/20 19:00 07:00 Intake Total 130.075 ml 54.900 ml Output Total 1300 ml 1200 ml Balance -1169.925 ml -1145.100 ml IV Total 130.075 ml 54.900 ml Output Urine Total 1300 ml 1200 ml General Appearance: no acute distress HEENT: normocephalic Respiratory: decreased breath sounds, other - On ventilator, FiO2 60% Cardiovascular: JVD Abdomen: soft, non tender, other - obese, NG tube Extremities: other - b/l 2+ pitting edema Neurologic: disoriented Laboratory Tests 05/16/20 04:20: White Blood Count 7.1, Red Blood Count 2.86L, Hemoglobin 9.7L, Hematocrit 26.5L, Mean Corpuscular Volume 93, Mean Corpuscular Hemoglobin 33.7H, Mean Corpuscular Hemoglobin Concent 36.4H, Red Cell Distribution Width 13.4, Platelet Count 219, Mean Platelet Volume 6.6, Neutrophils (%) (Auto) 78.6H, Lymphocytes (%) (Auto) 15.4L, Monocytes (%) (Auto) 5.8, Eosinophils (%) (Auto) 0.0, Basophils (%) (Auto) 0.2, Sodium Level 144, Potassium Level 3.4L, Chloride Level 109H, Carbon Dioxide Level 26, Anion Gap 9, Blood Urea Nitrogen 30H, Creatinine 1.1, Estimat Glomerular Filtration Rate 47.8, Glucose Level 112H, Calcium Level 7.4L, Total Bilirubin 0.7, Direct Bilirubin 0.2, Aspartate Amino Transf (AST/SGOT) 24, Alanine Aminotransferase (ALT/SGPT) 16, Alkaline Phosphatase 41L, Total Protein 6.9, Albumin 2.8L, Globulin 4.1, Albumin/Globulin Ratio 0.7L Current Medications Medications (Trade) Dose Ordered Sig/Angie Route PRN Reason Start Time Stop Time Status Last Admin Dose Admin Acetaminophen (Tylenol) 650 mg Q6H PRN NG Fever >100.5 05/14/20 21:00 06/13/20 20:59 05/14/20 21:10 Acetaminophen (Tylenol) 650 mg Q6H PRN NG Mild Pain (Pain Scale 1-3) 05/14/20 21:00 06/13/20 20:59 Cefepime HCl 1 gm/ Dextrose 55 ml @ 110 mls/hr DAILY IVPB 05/15/20 10:00 05/22/20 09:59 05/16/20 08:27 Chlorhexidine Gluconate (Ruba-Hex 2%) 1 applic DAILY@2000 TOPIC 05/15/20 20:00 08/13/20 19:59 05/15/20 20:10 Clonidine HCl (Catapres Tab) 0.1 mg Q4H PRN ORAL sbp>170 05/11/20 17:15 08/09/20 17:14 Dexamethasone Sodium Phosphate (Decadron 10mg/ ml Inj) 6 mg DAILY IV 05/12/20 15:45 05/21/20 15:44 05/16/20 08:26 Dopamine HCl/ Dextrose 250 ml @ 0 mls/hr Q24H IV 05/15/20 13:00 05/18/20 12:46 05/15/20 14:00 Haloperidol Lactate (Haldol) 5 mg Q6H PRN IM Agitation 05/13/20 20:45 06/27/20 20:44 Levothyroxine Sodium (Synthroid) 50 mcg DAILY@0630 ORAL 05/14/20 06:30 06/13/20 06:29 05/16/20 06:32 Potassium Chloride 100 ml @ 50 mls/hr ONCE ONCE IVPB 05/16/20 09:00 05/16/20 10:59 05/16/20 09:02 Remdesivir 100 mg/ Sodium Chloride 250 ml @ 250 mls/hr Q24H IV 05/14/20 21:00 05/17/20 21:59 05/15/20 20:29 Vancomycin HCl (Vanco pharmacy to dose) 1 ea DAILY PRN MISC Per rx protocol 05/15/20 08:45 06/14/20 08:44 Vancomycin HCl 1.25 gm/Dextrose 275 ml @ 183.708 mls/hr Q24H IVPB 05/16/20 11:00 05/21/20 10:59 Assessment/Plan Assessment/Plan 1. Bilateral COVID-19 multilobar pneumonia. Cultures show MRSA and Klebsiela - Pt orally intubated; attempted wean yesterday; will attempt again today - Afebrile - Continue Azithromycin, Ceftriaxone, dexamethasone - Remdesivir continuing 2. Hx of COPD. 3. Schizophrenia/psychosis - On dopamine, haloperidol 4. Hypoxia. - FiO2 60%; now up to 70% - Cont vent; AC mode; attempt wean again today 5. Anemia - Improving; hgb 9.1 -> 10.3 6. Azotemia/renal failure - UA: Positive leuk esterase, protein, RBC, WBC (05/11/2020) - BUN 47 -> 40 Sincere Myers MD May 16, 2020 10:08
--- NOTE | 2020-05-16 10:15 | Infectious Diseases Prog Note ---
Assessment/Plan Assessment/Plan IMPRESSION: COVID-19 disease, Acute respiratory failure, COPD, Diastolic CHF, Mitral valve regurgitation, Anemia, Parkinson disease, schizoaffective disorder, Dementia, Obstructive sleep apnea, Hypothyroidism. 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 RECOMMENDATION: Continue dexamethasone & Remdesivir Change Cefepime to Levaquin Continue Vancomycin Subjective ROS Limited/Unobtainable: Yes Constitutional: Denies: fever Allergies: Coded Allergies: No Known Allergies (Unverified , 05/11/20) Objective Last 24 Hour Vital Signs Date Time Temp Pulse Resp B/P (MAP) Pulse Ox O2 Delivery O2 Flow Rate FiO2 05/16/20 07:00 63 13 141/103 (116) 96 05/16/20 06:30 67 18 05/16/20 06:00 62 12 125/39 (67) 97 05/16/20 05:00 61 12 126/35 (65) 94 05/16/20 04:00 Mechanical Ventilator 05/16/20 04:00 70 05/16/20 04:00 61 05/16/20 04:00 61 12 121/42 (68) 95 05/16/20 03:45 70 17 70 05/16/20 03:00 73 13 123/45 (71) 99 05/16/20 03:00 123/45 05/16/20 02:00 105/31 05/16/20 02:00 60 12 105/31 (55) 93 05/16/20 01:00 63 12 111/39 (63) 91 05/16/20 01:00 111/39 05/16/20 00:00 Mechanical Ventilator 05/16/20 00:00 108/40 05/16/20 00:00 99.0 70 16 108/40 (62) 98 05/15/20 23:45 83 12 70 05/15/20 23:00 66 12 105/39 (61) 91 05/15/20 23:00 105/39 05/15/20 22:00 97/63 05/15/20 22:00 71 12 97/63 (74) 98 05/15/20 21:00 62 12 105/38 (60) 92 05/15/20 21:00 105/38 05/15/20 20:00 Mechanical Ventilator 05/15/20 20:00 99.1 70 13 119/40 (66) 100 05/15/20 20:00 70 05/15/20 20:00 119/40 05/15/20 20:00 70 05/15/20 19:51 61 12 70 05/15/20 19:00 74 15 116/40 (65) 100 05/15/20 19:00 116/40 05/15/20 18:00 117/42 05/15/20 18:00 73 16 117/42 (67) 95 05/15/20 17:00 110/34 05/15/20 17:00 62 12 110/34 (59) 95 05/15/20 16:00 Mechanical Ventilator 05/15/20 16:00 108/35 05/15/20 16:00 99.0 63 12 108/35 (59) 95 05/15/20 16:00 70 05/15/20 15:30 71 16 70 05/15/20 15:19 72 05/15/20 15:00 107/86 05/15/20 15:00 70 16 107/86 (93) 100 05/15/20 14:00 109/35 05/15/20 14:00 69 13 95/30 (51) 99 05/15/20 13:00 109/42 05/15/20 13:00 73 15 109/42 (64) 99 05/15/20 12:00 99.0 63 12 109/39 (62) 97 05/15/20 12:00 109/39 05/15/20 12:00 Mechanical Ventilator 05/15/20 12:00 63 05/15/20 12:00 70 05/15/20 11:00 68 11 111/31 (57) 99 05/15/20 11:00 70 16 70 05/15/20 11:00 111/31 Height (Feet): 5 Height (Inches): 3.00 Weight (Pounds): 170 HEENT: other - orally intubated Cardiovascular: normal rate Abdomen: soft, non tender Extremities: no edema Laboratory Tests Test 05/16/20 04:20 White Blood Count 7.1 K/UL (4.8-10.8) Red Blood Count 2.86 M/UL (4.20-5.40) L Hemoglobin 9.7 G/DL (12.0-16.0) L Hematocrit 26.5 % (37.0-47.0) L Mean Corpuscular Volume 93 FL (80-99) Mean Corpuscular Hemoglobin 33.7 PG (27.0-31.0) H Mean Corpuscular Hemoglobin Concent 36.4 G/DL (32.0-36.0) H Red Cell Distribution Width 13.4 % (11.6-14.8) Platelet Count 219 K/UL (150-450) Mean Platelet Volume 6.6 FL (6.5-10.1) Neutrophils (%) (Auto) 78.6 % (45.0-75.0) H Lymphocytes (%) (Auto) 15.4 % (20.0-45.0) L Monocytes (%) (Auto) 5.8 % (1.0-10.0) Eosinophils (%) (Auto) 0.0 % (0.0-3.0) Basophils (%) (Auto) 0.2 % (0.0-2.0) Sodium Level 144 MMOL/L (136-145) Potassium Level 3.4 MMOL/L (3.5-5.1) L Chloride Level 109 MMOL/L (98-107) H Carbon Dioxide Level 26 MMOL/L (21-32) Anion Gap 9 mmol/L (5-15) Blood Urea Nitrogen 30 mg/dL (7-18) H Creatinine 1.1 MG/DL (0.55-1.30) Estimat Glomerular Filtration Rate 47.8 mL/min (>60) Glucose Level 112 MG/DL (74-106) H Calcium Level 7.4 MG/DL (8.5-10.1) L Total Bilirubin 0.7 MG/DL (0.2-1.0) Direct Bilirubin 0.2 MG/DL (0.0-0.3) Aspartate Amino Transf (AST/SGOT) 24 U/L (15-37) Alanine Aminotransferase (ALT/SGPT) 16 U/L (12-78) Alkaline Phosphatase 41 U/L (46-116) L Total Protein 6.9 G/DL (6.4-8.2) Albumin 2.8 G/DL (3.4-5.0) L Globulin 4.1 g/dL Albumin/Globulin Ratio 0.7 (1.0-2.7) L Current Medications Medications (Trade) Dose Ordered Sig/Angie Route PRN Reason Start Time Stop Time Status Last Admin Dose Admin Acetaminophen (Tylenol) 650 mg Q6H PRN NG Fever >100.5 05/14/20 21:00 06/13/20 20:59 05/14/20 21:10 Acetaminophen (Tylenol) 650 mg Q6H PRN NG Mild Pain (Pain Scale 1-3) 05/14/20 21:00 06/13/20 20:59 Cefepime HCl 1 gm/ Dextrose 55 ml @ 110 mls/hr DAILY IVPB 05/15/20 10:00 05/22/20 09:59 05/16/20 08:27 Chlorhexidine Gluconate (Ruba-Hex 2%) 1 applic DAILY@1999 TOPIC 05/15/20 20:00 08/13/20 19:59 05/15/20 20:10 Clonidine HCl (Catapres Tab) 0.1 mg Q4H PRN ORAL sbp>170 05/11/20 17:15 08/09/20 17:14 Dexamethasone Sodium Phosphate (Decadron 10mg/ ml Inj) 6 mg DAILY IV 05/12/20 15:45 05/21/20 15:44 05/16/20 08:26 Dopamine HCl/ Dextrose 250 ml @ 0 mls/hr Q24H IV 05/15/20 13:00 05/18/20 12:46 05/15/20 14:00 Haloperidol Lactate (Haldol) 5 mg Q6H PRN IM Agitation 05/13/20 20:45 06/27/20 20:44 Levothyroxine Sodium (Synthroid) 50 mcg DAILY@0630 ORAL 05/14/20 06:30 06/13/20 06:29 05/16/20 06:32 Potassium Chloride 100 ml @ 50 mls/hr ONCE ONCE IVPB 05/16/20 09:00 05/16/20 10:59 05/16/20 09:02 Remdesivir 100 mg/ Sodium Chloride 250 ml @ 250 mls/hr Q24H IV 05/14/20 21:00 05/17/20 21:59 05/15/20 20:29 Vancomycin HCl (Vanco pharmacy to dose) 1 ea DAILY PRN MISC Per rx protocol 05/15/20 08:45 06/14/20 08:44 Vancomycin HCl 1.25 gm/Dextrose 275 ml @ 183.708 mls/hr Q24H IVPB 05/16/20 11:00 05/21/20 10:59 Lei Chan MD May 16, 2020 10:15
[2020-05-16] MEDS ORDERED: Vancomycin 1.25gm Premix q24h IVPB SCH (11:00)
--- NOTE | 2020-05-16 11:02 | Nephrology Progress Note ---
Assessment/Plan Problem List: (1) Renal failure (ARF), acute on chronic (2) Hypercapnic respiratory failure (3) CHF exacerbation Assessment Azotemia/renal failure Acute respiratory failure most likely secondary to CHF, on mechanical ventilation History of COPD Hypertension Hyperlipemia Schizophrenia/psychosis Plan May 16: Labs reviewed. Remains intubated. Remains full code. Stable from renal standpoint of view. Abnormal electrolytes addressed. May 15: Labs reviewed. Renal parameters stable. Discussed with RN. Patient remains intubated on ventilator and full code. Continue per consultants. May 14: Labs reviewed. Discussed with RN. Abnormal electrolyte addressed. Continue per current management. Patient seen in ICU. Discussed with RN. Today's labs pending. Patient remains on 6 mics of dopamine. Pulmonary support Monitor intake and output Monitor electrolytes Continue per consultants Per orders Subjective ROS Limited/Unobtainable: Yes Objective Objective Last 24 Hour Vital Signs Date Time Temp Pulse Resp B/P (MAP) Pulse Ox O2 Delivery O2 Flow Rate FiO2 05/16/20 07:00 63 13 141/103 (116) 96 05/16/20 06:30 67 18 05/16/20 06:00 62 12 125/39 (67) 97 05/16/20 05:00 61 12 126/35 (65) 94 05/16/20 04:00 Mechanical Ventilator 05/16/20 04:00 70 05/16/20 04:00 61 05/16/20 04:00 61 12 121/42 (68) 95 05/16/20 03:45 70 17 70 05/16/20 03:00 73 13 123/45 (71) 99 05/16/20 03:00 123/45 05/16/20 02:00 105/31 05/16/20 02:00 60 12 105/31 (55) 93 05/16/20 01:00 63 12 111/39 (63) 91 05/16/20 01:00 111/39 05/16/20 00:00 Mechanical Ventilator 05/16/20 00:00 108/40 05/16/20 00:00 99.0 70 16 108/40 (62) 98 05/15/20 23:45 83 12 70 05/15/20 23:00 66 12 105/39 (61) 91 05/15/20 23:00 105/39 05/15/20 22:00 97/63 05/15/20 22:00 71 12 97/63 (74) 98 05/15/20 21:00 62 12 105/38 (60) 92 05/15/20 21:00 105/38 05/15/20 20:00 Mechanical Ventilator 05/15/20 20:00 99.1 70 13 119/40 (66) 100 05/15/20 20:00 70 05/15/20 20:00 119/40 05/15/20 20:00 70 05/15/20 19:51 61 12 70 05/15/20 19:00 74 15 116/40 (65) 100 05/15/20 19:00 116/40 05/15/20 18:00 117/42 05/15/20 18:00 73 16 117/42 (67) 95 05/15/20 17:00 110/34 05/15/20 17:00 62 12 110/34 (59) 95 05/15/20 16:00 Mechanical Ventilator 05/15/20 16:00 108/35 05/15/20 16:00 99.0 63 12 108/35 (59) 95 05/15/20 16:00 70 05/15/20 15:30 71 16 70 05/15/20 15:19 72 05/15/20 15:00 107/86 05/15/20 15:00 70 16 107/86 (93) 100 05/15/20 14:00 109/35 05/15/20 14:00 69 13 95/30 (51) 99 05/15/20 13:00 109/42 05/15/20 13:00 73 15 109/42 (64) 99 05/15/20 12:00 99.0 63 12 109/39 (62) 97 05/15/20 12:00 109/39 05/15/20 12:00 Mechanical Ventilator 05/15/20 12:00 63 05/15/20 12:00 70 Intake and Output 05/15/20 05/16/20 19:00 07:00 Intake Total 130.075 ml 54.900 ml Output Total 1300 ml 1200 ml Balance -1169.925 ml -1145.100 ml IV Total 130.075 ml 54.900 ml Output Urine Total 1300 ml 1200 ml Current Medications Medications (Trade) Dose Ordered Sig/Angie Route PRN Reason Start Time Stop Time Status Last Admin Dose Admin Acetaminophen (Tylenol) 650 mg Q6H PRN NG Fever >100.5 05/14/20 21:00 06/13/20 20:59 05/14/20 21:10 Acetaminophen (Tylenol) 650 mg Q6H PRN NG Mild Pain (Pain Scale 1-3) 05/14/20 21:00 06/13/20 20:59 Chlorhexidine Gluconate (Ruba-Hex 2%) 1 applic DAILY@2000 TOPIC 05/15/20 20:00 08/13/20 19:59 05/15/20 20:10 Clonidine HCl (Catapres Tab) 0.1 mg Q4H PRN ORAL sbp>170 05/11/20 17:15 08/09/20 17:14 Dexamethasone Sodium Phosphate (Decadron 10mg/ ml Inj) 6 mg DAILY IV 05/12/20 15:45 05/21/20 15:44 05/16/20 08:26 Dopamine HCl/ Dextrose 250 ml @ 0 mls/hr Q24H IV 05/15/20 13:00 05/18/20 12:46 05/15/20 14:00 Haloperidol Lactate (Haldol) 5 mg Q6H PRN IM Agitation 05/13/20 20:45 06/27/20 20:44 Levofloxacin 150 ml @ 100 mls/hr Q24H IVPB 05/16/20 12:00 05/23/20 11:59 Levothyroxine Sodium (Synthroid) 50 mcg DAILY@0630 ORAL 05/14/20 06:30 06/13/20 06:29 05/16/20 06:32 Remdesivir 100 mg/ Sodium Chloride 250 ml @ 250 mls/hr Q24H IV 05/14/20 21:00 05/17/20 21:59 05/15/20 20:29 Vancomycin HCl ([facility]anco pharmacy to dose) 1 ea DAILY PRN MISC Per rx protocol 05/15/20 08:45 06/14/20 08:44 Vancomycin HCl 1.25 gm/Dextrose 275 ml @ 183.708 mls/hr Q24H IVPB 05/16/20 11:00 05/21/20 10:59 Laboratory Tests 05/16/20 04:20: White Blood Count 7.1, Red Blood Count 2.86L, Hemoglobin 9.7L, Hematocrit 26.5L, Mean Corpuscular Volume 93, Mean Corpuscular Hemoglobin 33.7H, Mean Corpuscular Hemoglobin Concent 36.4H, Red Cell Distribution Width 13.4, Platelet Count 219, Mean Platelet Volume 6.6, Neutrophils (%) (Auto) 78.6H, Lymphocytes (%) (Auto) 15.4L, Monocytes (%) (Auto) 5.8, Eosinophils (%) (Auto) 0.0, Basophils (%) (Auto) 0.2, Sodium Level 144, Potassium Level 3.4L, Chloride Level 109H, Carbon Dioxide Level 26, Anion Gap 9, Blood Urea Nitrogen 30H, Creatinine 1.1, Estimat Glomerular Filtration Rate 47.8, Glucose Level 112H, Calcium Level 7.4L, Total Bilirubin 0.7, Direct Bilirubin 0.2, Aspartate Amino Transf (AST/SGOT) 24, Alanine Aminotransferase (ALT/SGPT) 16, Alkaline Phosphatase 41L, Total Protein 6.9, Albumin 2.8L, Globulin 4.1, Albumin/Globulin Ratio 0.7L Height (Feet): 5 Height (Inches): 3.00 Weight (Pounds): 170 General Appearance: no apparent distress EENT: other - Patient remains intubated on ventilator Cardiovascular: normal rate Respiratory/Chest: decreased breath sounds Abdomen: soft Bryan Ochoa MD May 16, 2020 11:02
[2020-05-16] MEDS: Vancomycin 1.25 GM in D5W 275 ML IVPB SCH (11:27)
[2020-05-16] MEDS: DOPamine 400mg/250ml 250 ML IV SCH (12:28)
--- NOTE | 2020-05-16 14:41 | Cardiac Electrophysiology PN ---
Assessment/Plan Assessment/Plan 1. Shortness of breath due to Covid PNA Intubated on the Vent with 70% Fio2 2. History of COPD. 3. Hypotension. On Dopamine 2 mcg . EF 55% 4. Bradycardia on Dopamine 5. Schizophrenia and psychosis. DW RN Subjective Subjective Intubated in ICU . Covid is positive. On 70% Fio2 and 2 Mcg of Dopamine. No change Objective Last 24 Hour Vital Signs Date Time Temp Pulse Resp B/P (MAP) Pulse Ox O2 Delivery O2 Flow Rate FiO2 05/16/20 13:00 76 17 130/42 (71) 98 05/16/20 12:00 70 05/16/20 12:00 98.9 74 20 112/49 (70) 100 05/16/20 12:00 76 05/16/20 12:00 Mechanical Ventilator 05/16/20 11:00 58 12 115/51 (72) 93 05/16/20 10:00 70 13 130/40 (70) 100 05/16/20 09:00 68 15 129/40 (69) 99 05/16/20 08:00 70 05/16/20 08:00 78 05/16/20 08:00 98.8 69 12 121/35 (63) 98 05/16/20 08:00 Mechanical Ventilator 05/16/20 07:00 63 13 141/103 (116) 96 05/16/20 06:30 67 18 05/16/20 06:00 62 12 125/39 (67) 97 05/16/20 05:00 61 12 126/35 (65) 94 05/16/20 04:00 Mechanical Ventilator 05/16/20 04:00 70 05/16/20 04:00 61 05/16/20 04:00 61 12 121/42 (68) 95 05/16/20 03:45 70 17 70 05/16/20 03:00 73 13 123/45 (71) 99 05/16/20 03:00 123/45 05/16/20 02:00 105/31 05/16/20 02:00 60 12 105/31 (55) 93 05/16/20 01:00 63 12 111/39 (63) 91 05/16/20 01:00 111/39 05/16/20 00:00 Mechanical Ventilator 05/16/20 00:00 108/40 05/16/20 00:00 99.0 70 16 108/40 (62) 98 05/15/20 23:45 83 12 70 05/15/20 23:00 66 12 105/39 (61) 91 05/15/20 23:00 105/39 05/15/20 22:00 97/63 05/15/20 22:00 71 12 97/63 (74) 98 05/15/20 21:00 62 12 105/38 (60) 92 05/15/20 21:00 105/38 05/15/20 20:00 Mechanical Ventilator 05/15/20 20:00 99.1 70 13 119/40 (66) 100 05/15/20 20:00 70 05/15/20 20:00 119/40 05/15/20 20:00 70 05/15/20 19:51 61 12 70 05/15/20 19:00 74 15 116/40 (65) 100 05/15/20 19:00 116/40 05/15/20 18:00 117/42 05/15/20 18:00 73 16 117/42 (67) 95 05/15/20 17:00 110/34 05/15/20 17:00 62 12 110/34 (59) 95 05/15/20 16:00 Mechanical Ventilator 05/15/20 16:00 108/35 05/15/20 16:00 99.0 63 12 108/35 (59) 95 05/15/20 16:00 70 05/15/20 15:30 71 16 70 05/15/20 15:19 72 05/15/20 15:00 107/86 05/15/20 15:00 70 16 107/86 (93) 100 Intake and Output 05/15/20 05/16/20 18:59 06:59 Intake Total 130.075 ml 61.725 ml Output Total 1280 ml 1220 ml Balance -1149.925 ml -1158.275 ml IV Total 130.075 ml 61.725 ml Output Urine Total 1280 ml 1220 ml Laboratory Tests Test 05/16/20 04:20 White Blood Count 7.1 K/UL (4.8-10.8) Red Blood Count 2.86 M/UL (4.20-5.40) L Hemoglobin 9.7 G/DL (12.0-16.0) L Hematocrit 26.5 % (37.0-47.0) L Mean Corpuscular Volume 93 FL (80-99) Mean Corpuscular Hemoglobin 33.7 PG (27.0-31.0) H Mean Corpuscular Hemoglobin Concent 36.4 G/DL (32.0-36.0) H Red Cell Distribution Width 13.4 % (11.6-14.8) Platelet Count 219 K/UL (150-450) Mean Platelet Volume 6.6 FL (6.5-10.1) Neutrophils (%) (Auto) 78.6 % (45.0-75.0) H Lymphocytes (%) (Auto) 15.4 % (20.0-45.0) L Monocytes (%) (Auto) 5.8 % (1.0-10.0) Eosinophils (%) (Auto) 0.0 % (0.0-3.0) Basophils (%) (Auto) 0.2 % (0.0-2.0) Sodium Level 144 MMOL/L (136-145) Potassium Level 3.4 MMOL/L (3.5-5.1) L Chloride Level 109 MMOL/L (98-107) H Carbon Dioxide Level 26 MMOL/L (21-32) Anion Gap 9 mmol/L (5-15) Blood Urea Nitrogen 30 mg/dL (7-18) H Creatinine 1.1 MG/DL (0.55-1.30) Estimat Glomerular Filtration Rate 47.8 mL/min (>60) Glucose Level 112 MG/DL (74-106) H Calcium Level 7.4 MG/DL (8.5-10.1) L Total Bilirubin 0.7 MG/DL (0.2-1.0) Direct Bilirubin 0.2 MG/DL (0.0-0.3) Aspartate Amino Transf (AST/SGOT) 24 U/L (15-37) Alanine Aminotransferase (ALT/SGPT) 16 U/L (12-78) Alkaline Phosphatase 41 U/L (46-116) L Total Protein 6.9 G/DL (6.4-8.2) Albumin 2.8 G/DL (3.4-5.0) L Globulin 4.1 g/dL Albumin/Globulin Ratio 0.7 (1.0-2.7) L Objective HEAD AND NECK: positive JVD.Orally intubated LUNGS: Decreased breath sounds. CARDIOVASCULAR: Regular S1 and S2 with no gallop. ABDOMEN: Obese. EXTREMITIES: Bilateral 2+ pitting edema. Cameron Davies MD May 16, 2020 14:41
--- NOTE | 2020-05-16 20:11 | Psychiatric Progress Note ---
Psychiatry Progress Note Psychiatry Progress Note Subjective the pt is calm Medications Current Medications Medications (Trade) Dose Ordered Sig/Angie Route PRN Reason Start Time Stop Time Status Last Admin Dose Admin Acetaminophen (Tylenol) 650 mg Q6H PRN NG Fever >100.5 05/14/20 21:00 06/13/20 20:59 05/14/20 21:10 Acetaminophen (Tylenol) 650 mg Q6H PRN NG Mild Pain (Pain Scale 1-3) 05/14/20 21:00 06/13/20 20:59 Chlorhexidine Gluconate (Ruba-Hex 2%) 1 applic DAILY@1999 TOPIC 05/15/20 20:00 08/13/20 19:59 05/15/20 20:10 Clonidine HCl (Catapres Tab) 0.1 mg Q4H PRN ORAL sbp>170 05/11/20 17:15 08/09/20 17:14 Dexamethasone Sodium Phosphate (Decadron 10mg/ ml Inj) 6 mg DAILY IV 05/12/20 15:45 05/21/20 15:44 05/16/20 08:26 Dopamine HCl/ Dextrose 250 ml @ 0 mls/hr Q24H IV 05/15/20 13:00 05/18/20 12:46 05/15/20 14:00 Haloperidol Lactate (Haldol) 5 mg Q6H PRN IM Agitation 05/13/20 20:45 06/27/20 20:44 Levofloxacin 150 ml @ 100 mls/hr Q24H IVPB 05/16/20 12:00 05/23/20 11:59 05/16/20 11:57 Levothyroxine Sodium (Synthroid) 50 mcg DAILY@0630 ORAL 05/14/20 06:30 06/13/20 06:29 05/16/20 06:32 Remdesivir 100 mg/ Sodium Chloride 250 ml @ 250 mls/hr Q24H IV 05/14/20 21:00 05/17/20 21:59 05/15/20 20:29 Vancomycin HCl (Vanco pharmacy to dose) 1 ea DAILY PRN MISC Per rx protocol 05/15/20 08:45 06/14/20 08:44 Vancomycin HCl 1.25 gm/Dextrose 275 ml @ 183.708 mls/hr Q24H IVPB 05/16/20 11:00 05/21/20 10:59 05/16/20 11:27 Neurological/Psychiatric: Reports: anxiety, depressed, emotional problems Allergies: Coded Allergies: LITHIUM (Verified Allergy, Unknown, 02/07/19) Objective Data Height (Feet): 5 Height (Inches): 3.00 Weight (Pounds): 170 General Appearance: no apparent distress Additional Comments: waxing and waning consciousness. Disoriented. Mood is neutral to agitation. Affect is flat. Thought process, there is paucity of thought process. Thought content, no suicidal or homicidal ideation. Cognition is impaired. Insight and judgment is impaired. Assessment/Plan Linn I: Linn I Acute toxic encephalopathy. Schizophrenia. Linn II Deferred. Linn III COVID-19. Linn IV Low. Linn V 20 PLAN: 1. Discontinue the IV Haldol. 2. Start the patient on Haldol IM. 3. The patient benefits from bilateral soft restraints. 4. Provide the patient with reality orientation. 5. Discussed with the nurse. Status: unchanged Status Narrative Linn I Acute toxic encephalopathy. Schizophrenia. Linn II Deferred. Linn III COVID-19. Linn IV Low. Linn V 20 PLAN: 1. Discontinue the IV Haldol. 2. Start the patient on Haldol IM. 3. The patient benefits from bilateral soft restraints. 4. Provide the patient with reality orientation. 5. Discussed with the nurse. Assessment/Plan: Linn I Acute toxic encephalopathy. Schizophrenia. Linn II Deferred. Linn III COVID-19. Linn IV Low. Linn V 20 PLAN: 1. Discontinue the IV Haldol. 2. Start the patient on Haldol IM. 3. The patient benefits from bilateral soft restraints. 4. Provide the patient with reality orientation. 5. Discussed with the nurse. Kiana Hernandez MD May 16, 2020 20:11
[2020-05-16] MEDS: Dyna-Hex 2% Top Sol 2oz TOPIC SCH (20:17)
[2020-05-16] MEDS: Maintenance Dose:Remdesivir 100mg/NS 230ml x 4 Doses IV SCH ×2 (21:11)
--- NOTE | 2020-05-16 21:43 | General Progress Note ---
Subjective ROS Limited/Unobtainable: Yes Allergies: Coded Allergies: LITHIUM (Verified Allergy, Unknown, 02/07/19) Objective Last 24 Hour Vital Signs Date Time Temp Pulse Resp B/P (MAP) Pulse Ox O2 Delivery O2 Flow Rate FiO2 05/16/20 20:00 70 05/16/20 20:00 97.5 71 15 127/39 (68) 100 05/16/20 20:00 68 05/16/20 19:55 71 16 70 05/16/20 19:00 62 12 120/37 (64) 100 05/16/20 19:00 120/37 05/16/20 18:00 144/49 05/16/20 18:00 74 22 144/49 (80) 100 05/16/20 17:00 70 14 125/41 (69) 100 05/16/20 17:00 125/41 05/16/20 16:00 62 05/16/20 16:00 118/43 05/16/20 16:00 70 05/16/20 16:00 98.5 71 15 118/43 (68) 100 05/16/20 16:00 Mechanical Ventilator 05/16/20 15:58 87 18 70 05/16/20 15:00 132/60 05/16/20 15:00 80 19 132/60 (84) 100 05/16/20 14:00 73 12 117/41 (66) 99 05/16/20 14:00 117/41 05/16/20 13:00 130/42 05/16/20 13:00 76 17 130/42 (71) 98 05/16/20 12:00 139/105 05/16/20 12:00 70 05/16/20 12:00 98.9 74 20 112/49 (70) 100 05/16/20 12:00 76 05/16/20 12:00 Mechanical Ventilator 05/16/20 11:49 74 17 70 05/16/20 11:00 58 12 115/51 (72) 93 05/16/20 11:00 115/51 05/16/20 10:00 130/40 05/16/20 10:00 70 13 130/40 (70) 100 05/16/20 09:00 68 15 129/40 (69) 99 05/16/20 09:00 129/40 05/16/20 08:00 121/35 05/16/20 08:00 70 05/16/20 08:00 78 05/16/20 08:00 98.8 69 12 121/35 (63) 98 05/16/20 08:00 Mechanical Ventilator 05/16/20 07:43 72 16 70 05/16/20 07:00 63 13 141/103 (116) 96 05/16/20 07:00 141/103 05/16/20 06:30 67 18 05/16/20 06:00 62 12 125/39 (67) 97 05/16/20 05:00 61 12 126/35 (65) 94 05/16/20 04:00 Mechanical Ventilator 05/16/20 04:00 70 05/16/20 04:00 61 05/16/20 04:00 61 12 121/42 (68) 95 05/16/20 03:45 70 17 70 05/16/20 03:00 73 13 123/45 (71) 99 05/16/20 03:00 123/45 05/16/20 02:00 105/31 05/16/20 02:00 60 12 105/31 (55) 93 05/16/20 01:00 63 12 111/39 (63) 91 05/16/20 01:00 111/39 05/16/20 00:00 Mechanical Ventilator 05/16/20 00:00 108/40 05/16/20 00:00 99.0 70 16 108/40 (62) 98 05/15/20 23:45 83 12 70 05/15/20 23:00 66 12 105/39 (61) 91 05/15/20 23:00 105/39 05/15/20 22:00 97/63 05/15/20 22:00 71 12 97/63 (74) 98 Intake and Output 05/15/20 05/16/20 19:00 07:00 Intake Total 130.075 ml 61.725 ml Output Total 1300 ml 1200 ml Balance -1169.925 ml -1138.275 ml IV Total 130.075 ml 61.725 ml Output Urine Total 1300 ml 1200 ml Laboratory Tests 05/16/20 04:20: White Blood Count 7.1, Red Blood Count 2.86L, Hemoglobin 9.7L, Hematocrit 26.5L, Mean Corpuscular Volume 93, Mean Corpuscular Hemoglobin 33.7H, Mean Corpuscular Hemoglobin Concent 36.4H, Red Cell Distribution Width 13.4, Platelet Count 219, Mean Platelet Volume 6.6, Neutrophils (%) (Auto) 78.6H, Lymphocytes (%) (Auto) 15.4L, Monocytes (%) (Auto) 5.8, Eosinophils (%) (Auto) 0.0, Basophils (%) (Auto) 0.2, Sodium Level 144, Potassium Level 3.4L, Chloride Level 109H, Carbon Dioxide Level 26, Anion Gap 9, Blood Urea Nitrogen 30H, Creatinine 1.1, Estimat Glomerular Filtration Rate 47.8, Glucose Level 112H, Calcium Level 7.4L, Total Bilirubin 0.7, Direct Bilirubin 0.2, Aspartate Amino Transf (AST/SGOT) 24, Alanine Aminotransferase (ALT/SGPT) 16, Alkaline Phosphatase 41L, Total Protein 6.9, Albumin 2.8L, Globulin 4.1, Albumin/Globulin Ratio 0.7L Height (Feet): 5 Height (Inches): 3.00 Weight (Pounds): 170 Assessment/Plan Problem List: (1) Anemia ICD Codes: D64.9 - Anemia, unspecified SNOMED: 934878501 (2) Hypercapnic respiratory failure ICD Codes: J96.92 - Respiratory failure, unspecified with hypercapnia SNOMED: 442366384 (3) COVID-19 ICD Codes: U07.1 - COVID-19 SNOMED: 504386836 (4) COPD (chronic obstructive pulmonary disease) ICD Codes: J44.9 - Chronic obstructive pulmonary disease, unspecified SNOMED: 38108663 (5) Psychosis ICD Codes: F29 - Unspecified psychosis not due to a substance or known physiological condition SNOMED: 30938821 (6) Hypoxia ICD Codes: R09.02 - Hypoxemia SNOMED: 965614421 (7) Renal failure (ARF), acute on chronic ICD Codes: N17.9 - Acute kidney failure, unspecified; N18.9 - Chronic kidney disease, unspecified SNOMED: 298394725 (8) CHF exacerbation ICD Codes: I50.9 - Heart failure, unspecified SNOMED: 584959447, [id number] Status: progressing, unchanged Assessment/Plan: intubated paranoid pt bp improving steroid per pulmonary resp failure copd exacerbation covid positive pna septic shock off pressors chf as well Dani Perera MD May 16, 2020 21:43
[2020-05-17] VITALS (25 sets, daily range): BP systolic 85–153; BP diastolic 31–77
[2020-05-17] MEDS: DOPamine 400mg/250ml 250 ML IV SCH (02:03)
[2020-05-17 05:59] LABS: BASOPHILS % (AUTO) 0.2 % (0.0-2.0); HEMATOCRIT 27.3 % (37.0-47.0); HEMOGLOBIN 9.6 G/DL (12.0-16.0); MEAN CORPUSCULAR VOLUME 92 FL (80-99); MONOCYTES % (AUTO) 4.6 % (1.0-10.0); NEUTROPHILS % (AUTO) 84.2 % (45.0-75.0); PLATELET COUNT 234 K/UL (150-450); RED BLOOD COUNT 2.95 M/UL (4.20-5.40); RED CELL DISTRIBUTION WIDTH 13.6 % (11.6-14.8)
[2020-05-17 06:30] LABS: ALANINE AMINOTRANSFERASE 9 U/L (12-78); ALBUMIN 2.8 G/DL (3.4-5.0); ALBUMIN/GLOBULIN RATIO 0.6 (1.0-2.7); ALKALINE PHOSPHATASE 47 U/L (46-116); ASPARTATE AMINO TRANSFERASE 23 U/L (15-37); BILIRUBIN,DIRECT 0.3 MG/DL (0.0-0.3); BILIRUBIN,TOTAL 0.6 MG/DL (0.2-1.0); BLOOD UREA NITROGEN 32 mg/dL (7-18); CALCIUM 7.7 MG/DL (8.5-10.1); CARBON DIOXIDE 27 MMOL/L (21-32); CHLORIDE 109 MMOL/L (98-107); CREATININE 1.1 MG/DL (0.55-1.30); POTASSIUM 3.6 MMOL/L (3.5-5.1); SODIUM 145 MMOL/L (136-145)
[2020-05-17] MEDS: dexAMETHasone 10mg/ml Inj IV SCH (08:18)
[2020-05-17] MEDS: Haloperidol 5mg/ml Inj IM PRN (09:45)
--- NOTE | 2020-05-17 10:08 | Nephrology Progress Note ---
Assessment/Plan Problem List: (1) Renal failure (ARF), acute on chronic (2) Hypercapnic respiratory failure (3) CHF exacerbation Assessment Azotemia/renal failure Acute respiratory failure most likely secondary to CHF, on mechanical ventilation History of COPD Hypertension Hyperlipemia Schizophrenia/psychosis Plan May 17: Labs reviewed. Remains intubated. Stable from renal standpoint of view. Continue weaning. Discussed with RN. May 16: Labs reviewed. Remains intubated. Remains full code. Stable from renal standpoint of view. Abnormal electrolytes addressed. May 15: Labs reviewed. Renal parameters stable. Discussed with RN. Patient remains intubated on ventilator and full code. Continue per consultants. May 14: Labs reviewed. Discussed with RN. Abnormal electrolyte addressed. Continue per current management. Patient seen in ICU. Discussed with RN. Today's labs pending. Patient remains on 6 mics of dopamine. Pulmonary support Monitor intake and output Monitor electrolytes Continue per consultants Per orders Subjective ROS Limited/Unobtainable: Yes Objective Objective Last 24 Hour Vital Signs Date Time Temp Pulse Resp B/P (MAP) Pulse Ox O2 Delivery O2 Flow Rate FiO2 05/17/20 08:30 70 05/17/20 07:00 71 17 131/46 (74) 100 05/17/20 06:30 76 22 05/17/20 06:00 129/40 05/17/20 06:00 64 12 129/40 (69) 100 05/17/20 05:00 79 17 125/53 (77) 100 05/17/20 05:00 125/53 05/17/20 04:00 61 05/17/20 04:00 136/43 05/17/20 04:00 70 05/17/20 04:00 98.0 82 27 136/43 (74) 100 05/17/20 04:00 Mechanical Ventilator 05/17/20 03:52 76 17 100 05/17/20 03:51 77 17 100 Mechanical Ventilator 100 05/17/20 03:00 126/44 05/17/20 03:00 75 18 126/44 (71) 100 05/17/20 02:03 108/39 05/17/20 02:00 61 12 108/39 (62) 100 05/17/20 01:00 119/60 05/17/20 01:00 65 12 119/60 (79) 100 05/17/20 00:00 70 05/17/20 00:00 120/45 05/17/20 00:00 60 12 120/45 (70) 100 05/17/20 00:00 74 05/17/20 00:00 Mechanical Ventilator 05/16/20 23:05 70 19 100 05/16/20 23:00 129/51 05/16/20 23:00 79 16 129/51 (77) 100 05/16/20 22:00 69 12 123/41 (68) 100 05/16/20 22:00 123/41 05/16/20 21:00 125/39 05/16/20 21:00 72 12 125/39 (67) 100 05/16/20 20:00 Mechanical Ventilator 05/16/20 20:00 70 05/16/20 20:00 97.5 71 15 127/39 (68) 100 05/16/20 20:00 127/39 05/16/20 20:00 68 05/16/20 19:55 71 16 100 05/16/20 19:00 62 12 120/37 (64) 100 05/16/20 19:00 120/37 05/16/20 18:00 144/49 05/16/20 18:00 74 22 144/49 (80) 100 05/16/20 17:00 70 14 125/41 (69) 100 05/16/20 17:00 125/41 05/16/20 16:00 62 05/16/20 16:00 118/43 05/16/20 16:00 70 05/16/20 16:00 98.5 71 15 118/43 (68) 100 05/16/20 16:00 Mechanical Ventilator 05/16/20 15:58 87 18 70 05/16/20 15:00 132/60 05/16/20 15:00 80 19 132/60 (84) 100 05/16/20 14:00 73 12 117/41 (66) 99 05/16/20 14:00 117/41 05/16/20 13:00 130/42 05/16/20 13:00 76 17 130/42 (71) 98 05/16/20 12:00 139/105 05/16/20 12:00 70 05/16/20 12:00 98.9 74 20 112/49 (70) 100 12/4/20 12:00 76 05/16/20 12:00 Mechanical Ventilator 05/16/20 11:49 74 17 70 05/16/20 11:00 58 12 115/51 (72) 93 05/16/20 11:00 115/51 Intake and Output 05/16/20 05/17/20 18:59 06:59 Intake Total 81.900 ml 314.493 ml Output Total 640 ml 540 ml Balance -558.100 ml -225.507 ml IV Total 81.900 ml 314.493 ml Output Urine Total 640 ml 540 ml Current Medications Medications (Trade) Dose Ordered Sig/Angie Route PRN Reason Start Time Stop Time Status Last Admin Dose Admin Acetaminophen (Tylenol) 650 mg Q6H PRN NG Fever >100.5 05/14/20 21:00 06/13/20 20:59 05/14/20 21:10 Acetaminophen (Tylenol) 650 mg Q6H PRN NG Mild Pain (Pain Scale 1-3) 05/14/20 21:00 06/13/20 20:59 Chlorhexidine Gluconate (Ruba-Hex 2%) 1 applic DAILY@2000 TOPIC 05/15/20 20:00 08/13/20 19:59 05/16/20 20:17 Clonidine HCl (Catapres Tab) 0.1 mg Q4H PRN ORAL sbp>170 05/11/20 17:15 08/09/20 17:14 Dexamethasone Sodium Phosphate (Decadron 10mg/ ml Inj) 6 mg DAILY IV 05/12/20 15:45 05/21/20 15:44 05/17/20 08:18 Dopamine HCl/ Dextrose 250 ml @ 0 mls/hr Q24H IV 05/15/20 13:00 05/18/20 12:46 05/17/20 02:03 Haloperidol Lactate (Haldol) 5 mg Q6H PRN IM Agitation 05/13/20 20:45 06/27/20 20:44 05/17/20 09:45 Levofloxacin 150 ml @ 100 mls/hr Q24H IVPB 05/16/20 12:00 05/23/20 11:59 05/16/20 11:57 Levothyroxine Sodium (Synthroid) 50 mcg DAILY@0630 ORAL 05/14/20 06:30 06/13/20 06:29 05/17/20 05:58 Remdesivir 100 mg/ Sodium Chloride 250 ml @ 250 mls/hr Q24H IV 05/14/20 21:00 05/17/20 21:59 05/16/20 21:11 Vancomycin HCl (Vanco pharmacy to dose) 1 ea DAILY PRN MISC Per rx protocol 05/15/20 08:45 06/14/20 08:44 Vancomycin HCl 1.25 gm/Dextrose 275 ml @ 183.708 mls/hr Q24H IVPB 05/16/20 11:00 05/21/20 10:59 05/16/20 11:27 Laboratory Tests 05/17/20 04:50: White Blood Count 10.0, Red Blood Count 2.95L, Hemoglobin 9.6L, Hematocrit 27.3L , Mean Corpuscular Volume 92, Mean Corpuscular Hemoglobin 32.4H, Mean Corpuscular Hemoglobin Concent 35.1, Red Cell Distribution Width 13.6, Platelet Count 234, Mean Platelet Volume 6.7, Neutrophils (%) (Auto) 84.2H, Lymphocytes (%) (Auto) 11.0L, Monocytes (%) (Auto) 4.6, Eosinophils (%) (Auto) 0.0, Basophils (%) (Auto) 0.2, Sodium Level 145, Potassium Level 3.6, Chloride Level 109H, Carbon Dioxide Level 27, Blood Urea Nitrogen 32H, Creatinine 1.1, Estimat Glomerular Filtration Rate 47.8, Glucose Level 117H, Calcium Level 7.7L, Total Bilirubin 0.6, Direct Bilirubin 0.3, Aspartate Amino Transf (AST/SGOT) 23, Alanine Aminotransferase (ALT/SGPT) 9L, Alkaline Phosphatase 47, Total Protein 7.2, Albumin 2.8L, Globulin 4.4, Albumin/Globulin Ratio 0.6L Height (Feet): 5 Height (Inches): 3.00 Weight (Pounds): 170 General Appearance: no apparent distress EENT: other - Remains intubated on ventilator Cardiovascular: normal rate Respiratory/Chest: decreased breath sounds Abdomen: distended Bryan Ochoa MD May 17, 2020 10:08
--- NOTE | 2020-05-17 10:30 | Diagnostic Imaging Report ---
EXAM: XR Abdomen, 2 Views CLINICAL HISTORY: NGT TECHNIQUE: Frontal view of the abdomen/pelvis with upright view of the abdomen. COMPARISON: Abdominal x-ray dated 12/31/19 FINDINGS: Intraperitoneal space: No evidence of free air. Gastrointestinal tract: Diffuse gaseous distention of bowel loops. No evidence of pneumatosis intestinalis. Bones/joints: Degenerative changes throughout the visualized spine. Tubes, lines and devices: Nasogastric tube tip in the stomach. Tip of a presumed right femoral central venous catheter seen in the right pelvis. IMPRESSION: 1. Nasogastric tube tip in the stomach. 2. Diffuse gaseous distention of bowel loops.
[2020-05-17] MEDS: Vancomycin 1.25 GM in D5W 275 ML IVPB SCH (11:07)
[2020-05-17] MEDS ORDERED: Sterile Water Irrig 1000ml IRRIG ONE (11:59)
[2020-05-17] MEDS ORDERED: Tubing IV Secondary IV ONE (11:59)
[2020-05-17] MEDS ORDERED: NS 275ml ONE (11:59)
[2020-05-17] MEDS: LORazepam Inj 2mg/ml 1ml IV PRN ×2 (12:06→18:30)
--- NOTE | 2020-05-17 12:36 | Pulmonology Progress Note ---
Subjective ROS Limited/Unobtainable: Yes Interval Events: Remains intubated; unable to wean yesterday Constitutional: Denies: fever HEENT: Repors: no symptoms Respiratory: Reports: no symptoms Cardiovascular: Reports: no symptoms Gastrointestinal/Abdominal: Reports: no symptoms Genitourinary: Reports: no symptoms Allergies: Coded Allergies: LITHIUM (Verified Allergy, Unknown, 02/07/19) Objective Last 24 Hour Vital Signs Date Time Temp Pulse Resp B/P (MAP) Pulse Ox O2 Delivery O2 Flow Rate FiO2 05/17/20 12:06 107 20 130/48 96 05/17/20 12:00 Mechanical Ventilator 05/17/20 12:00 99.0 107 20 130/48 (75) 96 05/17/20 12:00 70 05/17/20 11:36 98.2 05/17/20 11:00 110 22 153/59 (90) 93 05/17/20 10:00 110 20 144/57 (86) 95 05/17/20 09:45 Mechanical Ventilator 05/17/20 09:00 82 21 128/47 (74) 100 05/17/20 08:30 70 05/17/20 08:00 Mechanical Ventilator 05/17/20 08:00 98.2 72 18 85/57 (66) 100 05/17/20 07:22 76 05/17/20 07:00 71 17 131/46 (74) 100 05/17/20 06:30 76 22 05/17/20 06:00 129/40 05/17/20 06:00 64 12 129/40 (69) 100 05/17/20 05:00 79 17 125/53 (77) 100 05/17/20 05:00 125/53 05/17/20 04:00 61 05/17/20 04:00 136/43 05/17/20 04:00 70 05/17/20 04:00 98.0 82 27 136/43 (74) 100 05/17/20 04:00 Mechanical Ventilator 05/17/20 03:52 76 17 100 05/17/20 03:51 77 17 100 Mechanical Ventilator 100 05/17/20 03:00 126/44 05/17/20 03:00 75 18 126/44 (71) 100 05/17/20 02:03 108/39 05/17/20 02:00 61 12 108/39 (62) 100 05/17/20 01:00 119/60 05/17/20 01:00 65 12 119/60 (79) 100 05/17/20 00:00 70 05/17/20 00:00 120/45 05/17/20 00:00 60 12 120/45 (70) 100 05/17/20 00:00 74 05/17/20 00:00 Mechanical Ventilator 05/16/20 23:05 70 19 100 05/16/20 23:00 129/51 05/16/20 23:00 79 16 129/51 (77) 100 05/16/20 22:00 69 12 123/41 (68) 100 05/16/20 22:00 123/41 05/16/20 21:00 125/39 05/16/20 21:00 72 12 125/39 (67) 100 05/16/20 20:00 Mechanical Ventilator 05/16/20 20:00 70 05/16/20 20:00 97.5 71 15 127/39 (68) 100 05/16/20 20:00 127/39 05/16/20 20:00 68 05/16/20 19:55 71 16 100 05/16/20 19:00 62 12 120/37 (64) 100 05/16/20 19:00 120/37 05/16/20 18:00 144/49 05/16/20 18:00 74 22 144/49 (80) 100 05/16/20 17:00 70 14 125/41 (69) 100 05/16/20 17:00 125/41 05/16/20 16:00 62 05/16/20 16:00 118/43 05/16/20 16:00 70 05/16/20 16:00 98.5 71 15 118/43 (68) 100 05/16/20 16:00 Mechanical Ventilator 05/16/20 15:58 87 18 70 05/16/20 15:00 132/60 05/16/20 15:00 80 19 132/60 (84) 100 05/16/20 14:00 73 12 117/41 (66) 99 05/16/20 14:00 117/41 05/16/20 13:00 130/42 05/16/20 13:00 76 17 130/42 (71) 98 Intake and Output 05/16/20 05/17/20 19:00 07:00 Intake Total 81.900 ml 307.668 ml Output Total 580 ml 550 ml Balance -498.100 ml -242.332 ml IV Total 81.900 ml 307.668 ml Output Urine Total 580 ml 550 ml General Appearance: no acute distress HEENT: normocephalic Respiratory: no respiratory distress, decreased breath sounds, other - On ventilator, FiO2 60% Cardiovascular: JVD Abdomen: soft, non tender, other - obese, NG tube Extremities: other - b/l 2+ pitting edema Neurologic: disoriented Laboratory Tests 05/17/20 04:50: White Blood Count 10.0, Red Blood Count 2.95L, Hemoglobin 9.6L, Hematocrit 27.3L , Mean Corpuscular Volume 92, Mean Corpuscular Hemoglobin 32.4H, Mean Corpuscular Hemoglobin Concent 35.1, Red Cell Distribution Width 13.6, Platelet Count 234, Mean Platelet Volume 6.7, Neutrophils (%) (Auto) 84.2H, Lymphocytes (%) (Auto) 11.0L, Monocytes (%) (Auto) 4.6, Eosinophils (%) (Auto) 0.0, Basophils (%) (Auto) 0.2, Sodium Level 145, Potassium Level 3.6, Chloride Level 109H, Carbon Dioxide Level 27, Blood Urea Nitrogen 32H, Creatinine 1.1, Estimat Glomerular Filtration Rate 47.8, Glucose Level 117H, Calcium Level 7.7L, Total Bilirubin 0.6, Direct Bilirubin 0.3, Aspartate Amino Transf (AST/SGOT) 23, Alanine Aminotransferase (ALT/SGPT) 9L, Alkaline Phosphatase 47, Total Protein 7.2, Albumin 2.8L, Globulin 4.4, Albumin/Globulin Ratio 0.6L Current Medications Medications (Trade) Dose Ordered Sig/Angie Route PRN Reason Start Time Stop Time Status Last Admin Dose Admin Acetaminophen (Tylenol) 650 mg Q6H PRN NG Fever >100.5 05/14/20 21:00 06/13/20 20:59 05/14/20 21:10 Acetaminophen (Tylenol) 650 mg Q6H PRN NG Mild Pain (Pain Scale 1-3) 05/14/20 21:00 06/13/20 20:59 05/17/20 11:06 Chlorhexidine Gluconate (Ruba-Hex 2%) 1 applic DAILY@2000 TOPIC 05/15/20 20:00 08/13/20 19:59 05/16/20 20:17 Clonidine HCl (Catapres Tab) 0.1 mg Q4H PRN ORAL sbp>170 05/11/20 17:15 08/09/20 17:14 Dexamethasone Sodium Phosphate (Decadron 10mg/ ml Inj) 6 mg DAILY IV 05/12/20 15:45 05/21/20 15:44 05/17/20 08:18 Dopamine HCl/ Dextrose 250 ml @ 0 mls/hr Q24H IV 05/15/20 13:00 05/18/20 12:46 05/17/20 02:03 Haloperidol Lactate (Haldol) 5 mg Q6H PRN IM Agitation 05/13/20 20:45 06/27/20 20:44 05/17/20 09:45 Levofloxacin 150 ml @ 100 mls/hr Q24H IVPB 05/16/20 12:00 05/23/20 11:59 05/17/20 11:07 Levothyroxine Sodium (Synthroid) 50 mcg DAILY@0630 ORAL 05/14/20 06:30 06/13/20 06:29 05/17/20 05:58 Lorazepam (Ativan 2mg/ml 1ml) 1 mg Q4H PRN IV For Anxiety 05/17/20 12:00 05/24/20 11:59 05/17/20 12:06 Remdesivir 100 mg/ Sodium Chloride 250 ml @ 250 mls/hr Q24H IV 05/14/20 21:00 05/17/20 21:59 05/16/20 21:11 Vancomycin HCl (Vanco pharmacy to dose) 1 ea DAILY PRN MISC Per rx protocol 05/15/20 08:45 06/14/20 08:44 Vancomycin HCl 1.25 gm/Dextrose 275 ml @ 183.708 mls/hr Q24H IVPB 05/16/20 11:00 05/21/20 10:59 05/17/20 11:07 Assessment/Plan Assessment/Plan 1. Bilateral COVID-19 multilobar pneumonia. Cultures show MRSA and Klebsiela - Pt orally intubated; attempted wean yesterday; will attempt again today - Decreased FiO2 to 70% - Afebrile - Continue Azithromycin, Ceftriaxone, dexamethasone - Remdesivir continuing 2. Hx of COPD. 3. Schizophrenia/psychosis - On dopamine, haloperidol for sedation; Ativan added 4. Hypoxia. - FiO2 70% - Cont vent; AC mode; attempt wean again today 5. Anemia - Improving 6. Azotemia/renal failure - UA: Positive leuk esterase, protein, RBC, WBC (05/11/2020) - BUN 47 -> 40 Sincere Myers MD May 17, 2020 12:36
--- NOTE | 2020-05-17 13:08 | Cardiology Report ---
APPROVED REPORT EKG Measurement Heart [id number] <Conclusion> Normal sinus rhythm Normal ECG
--- NOTE | 2020-05-17 13:39 | Cardiology Report ---
APPROVED REPORT EXAM: Two-dimensional and M-mode echocardiogram with Doppler and color Doppler. INDICATION Congestive Heart Failure Contrast Details Indication: Endocardial border delineation M-Mode DIMENSIONS IVSd0.9 (0.7-1.1cm)Left Atrium (MM)3.6 (1.6-4.0cm) LVDd5.9 (3.5-5.6cm)Aortic Root3.8 (2.0-3.7cm) PWd0.9 (0.7-1.1cm)Aortic Cusp Exc.1.9 (1.5-2.0cm) IVSs1.2 cmEPSS0.7 (>1.0cm) LVDs4.1 (2.5-4.0cm) PWs1.3 cm <Conclusion> Moderate left ventricular enlargement. Normal LV systolic function. Mild hypokinesis in lateral wall. All other segments seem to have normal wall motion. Left ventricular ejection fraction estimated to be 50-55 %. No left ventricular hypertrophy. No evidence of pericardial effusion. Moderate left atrial enlargement. Right cardiac chambers are mildly enlarged. Focal aortic valve sclerosis with adequate cusp excursion. Thickened mitral valve leaflets with normal excursion. Mitral annulus and moderate aortic root calcification. Mild aortic root dilatation with severly dilated ascending aorta at 5.7 cm. Normal pulmonic valve structure. Normal tricuspid valve structure. IVC dilated at 3.0 cm without physiologic collapse suggestive of increased RA pressure. A color flow and spectral Doppler study was performed and revealed: Moderate aortic regurgitation. Moderate posteriorly eccentric mitral regurgitation. Mitral inflow velocities indicates possible pseudo normalization pattern implying moderately elevated left atrial pressure (Grade II ). Mild tricuspid regurgitation. Tricuspid systolic velocities suggests peak right ventricular systolic pressure of 33 mmHg, with RAP 20 mmHg. Mild pulmonic regurgitation present.
[2020-05-17] MEDS ORDERED: Albuterol/Ipratropium 3ml neb HHN SCH (13:45)
--- NOTE | 2020-05-17 17:06 | General Progress Note ---
Subjective ROS Limited/Unobtainable: Yes Allergies: Coded Allergies: LITHIUM (Verified Allergy, Unknown, 02/07/19) Objective Last 24 Hour Vital Signs Date Time Temp Pulse Resp B/P (MAP) Pulse Ox O2 Delivery O2 Flow Rate FiO2 05/17/20 17:00 76 17 94/37 (56) 95 05/17/20 16:13 86 05/17/20 16:00 84 19 105/44 (64) 100 05/17/20 16:00 Mechanical Ventilator 05/17/20 16:00 70 05/17/20 15:00 76 17 100/39 (59) 97 05/17/20 14:00 80 14 99/40 (59) 96 05/17/20 13:00 103 22 127/49 (75) 98 05/17/20 12:39 100 05/17/20 12:36 98 18 116/43 99 05/17/20 12:06 107 20 130/48 96 05/17/20 12:00 Mechanical Ventilator 05/17/20 12:00 99.0 107 20 130/48 (75) 96 05/17/20 12:00 70 05/17/20 11:36 98.2 05/17/20 11:00 110 22 153/59 (90) 93 05/17/20 10:00 110 20 144/57 (86) 95 05/17/20 09:45 Mechanical Ventilator 05/17/20 09:00 82 21 128/47 (74) 100 05/17/20 08:30 70 05/17/20 08:00 Mechanical Ventilator 05/17/20 08:00 98.2 72 18 85/57 (66) 100 05/17/20 07:22 76 05/17/20 07:00 71 17 131/46 (74) 100 05/17/20 06:30 76 22 05/17/20 06:00 129/40 05/17/20 06:00 64 12 129/40 (69) 100 05/17/20 05:00 79 17 125/53 (77) 100 05/17/20 05:00 125/53 05/17/20 04:00 61 05/17/20 04:00 136/43 05/17/20 04:00 70 05/17/20 04:00 98.0 82 27 136/43 (74) 100 05/17/20 04:00 Mechanical Ventilator 05/17/20 03:52 76 17 100 05/17/20 03:51 77 17 100 Mechanical Ventilator 100 05/17/20 03:00 126/44 05/17/20 03:00 75 18 126/44 (71) 100 05/17/20 02:03 108/39 05/17/20 02:00 61 12 108/39 (62) 100 05/17/20 01:00 119/60 05/17/20 01:00 65 12 119/60 (79) 100 05/17/20 00:00 70 05/17/20 00:00 120/45 05/17/20 00:00 60 12 120/45 (70) 100 05/17/20 00:00 74 05/17/20 00:00 Mechanical Ventilator 05/16/20 23:05 70 19 100 05/16/20 23:00 129/51 05/16/20 23:00 79 16 129/51 (77) 100 05/16/20 22:00 69 12 123/41 (68) 100 05/16/20 22:00 123/41 05/16/20 21:00 125/39 05/16/20 21:00 72 12 125/39 (67) 100 05/16/20 20:00 Mechanical Ventilator 05/16/20 20:00 70 05/16/20 20:00 97.5 71 15 127/39 (68) 100 05/16/20 20:00 127/39 05/16/20 20:00 68 05/16/20 19:55 71 16 100 05/16/20 19:00 62 12 120/37 (64) 100 05/16/20 19:00 120/37 05/16/20 18:00 144/49 05/16/20 18:00 74 22 144/49 (80) 100 Intake and Output0 05/16/20 05/17/20 19:00 07:00 Intake Total 81.900 ml 307.668 ml Output Total 580 ml 550 ml Balance -498.100 ml -242.332 ml IV Total 81.900 ml 307.668 ml Output Urine Total 580 ml 550 ml Laboratory Tests 05/17/20 04:50: White Blood Count 10.0, Red Blood Count 2.95L, Hemoglobin 9.6L, Hematocrit 27.3L , Mean Corpuscular Volume 92, Mean Corpuscular Hemoglobin 32.4H, Mean Co rpuscular Hemoglobin Concent 35.1, Red Cell Distribution Width 13.6, Platelet Count 234, Mean Platelet Volume 6.7, Neutrophils (%) (Auto) 84.2H, Lymphocytes (%) (Auto) 11.0L, Monocytes (%) (Auto) 4.6, Eosinophils (%) (Auto) 0.0, Basophils (%) (Auto) 0.2, Sodium Level 145, Potassium Level 3.6, Chloride Level 109H, Carbon Dioxide Level 27, Blood Urea Nitrogen 32H, Creatinine 1.1, Estimat Glomerular Filtration Rate 47.8, Glucose Level 117H, Calcium Level 7.7L, Total Bilirubin 0.6, Direct Bilirubin 0.3, Aspartate Amino Transf (AST/SGOT) 23, Alanine Aminotransferase (ALT/SGPT) 9L, Alkaline Phosphatase 47, Total Protein 7.2, Albumin 2.8L, Globulin 4.4, Albumin/Globulin Ratio 0.6L Height (Feet): 5 Height (Inches): 3.00 Weight (Pounds): 170 Assessment/Plan Problem List: (1) Anemia ICD Codes: D64.9 - Anemia, unspecified SNOMED: 685135688 (2) Hypercapnic respiratory failure ICD Codes: J96.92 - Respiratory failure, unspecified with hypercapnia SNOMED: 629036923 (3) COVID-19 ICD Codes: U07.1 - COVID-19 SNOMED: 790493212 (4) COPD (chronic obstructive pulmonary disease) ICD Codes: J44.9 - Chronic obstructive pulmonary disease, unspecified SNOMED: 91403522 (5) Psychosis ICD Codes: F29 - Unspecified psychosis not due to a substance or known physiological condition SNOMED: 96945350 (6) Hypoxia ICD Codes: R09.02 - Hypoxemia SNOMED: 845505645 (7) Renal failure (ARF), acute on chronic ICD Codes: N17.9 - Acute kidney failure, unspecified; N18.9 - Chronic kidney disease, unspecified SNOMED: 580529147 (8) CHF exacerbation ICD Codes: I50.9 - Heart failure, unspecified SNOMED: 004397672, [id number] Status: progressing, unchanged Assessment/Plan: no change azotemia fluid management per renal noncompliant resp failure copd exacerbation covid positive pna septic shock off pressors chf Dani Perera MD May 17, 2020 17:06
--- NOTE | 2020-05-17 18:05 | Cardiac Electrophysiology PN ---
Assessment/Plan Assessment/Plan 1. Shortness of breath due to Covid PNA Intubated on the Vent with 70% Fio2 2. History of COPD. 3. Hypotension. Off Dopamine now. EF 55% 4. Bradycardia on Dopamine 5. Schizophrenia and psychosis. DW RN Subjective Subjective Intubated in ICU . Covid is positive. On 70% Fio2 and off Dopamine since 8 am today Objective Last 24 Hour Vital Signs Date Time Temp Pulse Resp B/P (MAP) Pulse Ox O2 Delivery O2 Flow Rate FiO2 05/17/20 17:00 76 17 94/37 (56) 95 05/17/20 16:13 86 05/17/20 16:00 84 19 105/44 (64) 100 05/17/20 16:00 Mechanical Ventilator 05/17/20 16:00 70 05/17/20 15:34 87 22 70 05/17/20 15:00 76 17 100/39 (59) 97 05/17/20 14:00 80 14 99/40 (59) 96 05/17/20 13:00 103 22 127/49 (75) 98 05/17/20 12:39 100 05/17/20 12:36 98 18 116/43 99 05/17/20 12:06 107 20 130/48 96 05/17/20 12:00 Mechanical Ventilator 05/17/20 12:00 99.0 107 20 130/48 (75) 96 05/17/20 12:00 70 05/17/20 11:36 98.2 05/17/20 11:14 106 17 100 05/17/20 11:00 110 22 153/59 (90) 93 05/17/20 10:00 110 20 144/57 (86) 95 05/17/20 09:45 Mechanical Ventilator 05/17/20 09:00 82 21 128/47 (74) 100 05/17/20 08:30 70 05/17/20 08:00 Mechanical Ventilator 05/17/20 08:00 98.2 72 18 85/57 (66) 100 05/17/20 07:22 76 05/17/20 07:15 81 17 100 05/17/20 07:00 71 17 131/46 (74) 100 05/17/20 06:30 76 22 05/17/20 06:00 129/40 05/17/20 06:00 64 12 129/40 (69) 100 05/17/20 05:00 79 17 125/53 (77) 100 05/17/20 05:00 125/53 05/17/20 04:00 61 05/17/20 04:00 136/43 05/17/20 04:00 70 05/17/20 04:00 98.0 82 27 136/43 (74) 100 05/17/20 04:00 Mechanical Ventilator 05/17/20 03:52 76 17 100 05/17/20 03:51 77 17 100 Mechanical Ventilator 100 05/17/20 03:00 126/44 05/17/20 03:00 75 18 126/44 (71) 100 05/17/20 02:03 108/39 05/17/20 02:00 61 12 108/39 (62) 100 05/17/20 01:00 119/60 05/17/20 01:00 65 12 119/60 (79) 100 05/17/20 00:00 70 05/17/20 00:00 120/45 05/17/20 00:00 60 12 120/45 (70) 100 05/17/20 00:00 74 05/17/20 00:00 Mechanical Ventilator 05/16/20 23:05 70 19 100 05/16/20 23:00 129/51 05/16/20 23:00 79 16 129/51 (77) 100 05/16/20 22:00 69 12 123/41 (68) 100 05/16/20 22:00 123/41 05/16/20 21:00 125/39 05/16/20 21:00 72 12 125/39 (67) 100 05/16/20 20:00 Mechanical Ventilator 05/16/20 20:00 70 05/16/20 20:00 97.5 71 15 127/39 (68) 100 05/16/20 20:00 127/39 05/16/20 20:00 68 05/16/20 19:55 71 16 100 05/16/20 19:00 62 12 120/37 (64) 100 05/16/20 19:00 120/37 Intake and Output 05/16/20 05/17/20 19:00 07:00 Intake Total 81.900 ml 307.668 ml Output Total 580 ml 550 ml Balance -498.100 ml -242.332 ml IV Total 81.900 ml 307.668 ml Output Urine Total 580 ml 550 ml Laboratory Tests Test 05/17/20 04:50 White Blood Count 10.0 K/UL (4.8-10.8) Red Blood Count 2.95 M/UL (4.20-5.40) L Hemoglobin 9.6 G/DL (12.0-16.0) L Hematocrit 27.3 % (37.0-47.0) L Mean Corpuscular Volume 92 FL (80-99) Mean Corpuscular Hemoglobin 32.4 PG (27.0-31.0) H Mean Corpuscular Hemoglobin Concent 35.1 G/DL (32.0-36.0) Red Cell Distribution Width 13.6 % (11.6-14.8) Platelet Count 234 K/UL (150-450) Mean Platelet Volume 6.7 FL (6.5-10.1) Neutrophils (%) (Auto) 84.2 % (45.0-75.0) H Lymphocytes (%) (Auto) 11.0 % (20.0-45.0) L Monocytes (%) (Auto) 4.6 % (1.0-10.0) Eosinophils (%) (Auto) 0.0 % (0.0-3.0) Basophils (%) (Auto) 0.2 % (0.0-2.0) Sodium Level 145 MMOL/L (136-145) Potassium Level 3.6 MMOL/L (3.5-5.1) Chloride Level 109 MMOL/L (98-107) H Carbon Dioxide Level 27 MMOL/L (21-32) Blood Urea Nitrogen 32 mg/dL (7-18) H Creatinine 1.1 MG/DL (0.55-1.30) Estimat Glomerular Filtration Rate 47.8 mL/min (>60) Glucose Level 117 MG/DL (74-106) H Calcium Level 7.7 MG/DL (8.5-10.1) L Total Bilirubin 0.6 MG/DL (0.2-1.0) Direct Bilirubin 0.3 MG/DL (0.0-0.3) Aspartate Amino Transf (AST/SGOT) 23 U/L (15-37) Alanine Aminotransferase (ALT/SGPT) 9 U/L (12-78) L Alkaline Phosphatase 47 U/L (46-116) Total Protein 7.2 G/DL (6.4-8.2) Albumin 2.8 G/DL (3.4-5.0) L Globulin 4.4 g/dL Albumin/Globulin Ratio 0.6 (1.0-2.7) L Objective HEAD AND NECK: positive JVD.Orally intubated LUNGS: Decreased breath sounds. CARDIOVASCULAR: Regular S1 and S2 with no gallop. ABDOMEN: Obese. EXTREMITIES: Bilateral 2+ pitting edema. Cameron Davies MD May 17, 2020 18:05
[2020-05-17] MEDS: Dyna-Hex 2% Top Sol 2oz TOPIC SCH (19:54)
[2020-05-17] MEDS: Maintenance Dose:Remdesivir 100mg/NS 230ml x 4 Doses IV SCH ×2 (21:11)
[2020-05-18] VITALS (29 sets, daily range): BP systolic 90–126; BP diastolic 30–77
[2020-05-18 06:34] LABS: HEMATOCRIT 23.3 % (37.0-47.0); HEMOGLOBIN 7.9 G/DL (12.0-16.0); MEAN CORPUSCULAR VOLUME 96 FL (80-99); PLATELET COUNT 213 K/UL (150-450); RED BLOOD COUNT 2.43 M/UL (4.20-5.40); RED CELL DISTRIBUTION WIDTH 13.7 % (11.6-14.8); WHITE BLOOD COUNT 8.9 K/UL (4.8-10.8)
[2020-05-18 06:43] LABS: ALBUMIN 2.5 G/DL (3.4-5.0); ALBUMIN/GLOBULIN RATIO 0.7 (1.0-2.7); BILIRUBIN,TOTAL 0.5 MG/DL (0.2-1.0); CALCIUM 7.6 MG/DL (8.5-10.1); CREATININE 1.2 MG/DL (0.55-1.30); PHOSPHORUS 1.9 MG/DL (2.5-4.9); POTASSIUM 4.1 MMOL/L (3.5-5.1)
[2020-05-18] MEDS: dexAMETHasone 10mg/ml Inj IV SCH (08:42)
--- NOTE | 2020-05-18 10:58 | Nephrology Progress Note ---
Assessment/Plan Problem List: (1) Renal failure (ARF), acute on chronic (2) Hypercapnic respiratory failure (3) CHF exacerbation Assessment Azotemia/renal failure Acute respiratory failure most likely secondary to CHF, on mechanical ventilation History of COPD Hypertension Hyperlipemia Schizophrenia/psychosis Plan May 18: Patient seen in ICU. Remains intubated. Weaning is being tried. Discussed with RN. Labs reviewed. Abnormal electrolyte addressed. Continue per consultants. May 17: Labs reviewed. Remains intubated. Stable from renal standpoint of view. Continue weaning. Discussed with RN. May 16: Labs reviewed. Remains intubated. Remains full code. Stable from renal standpoint of view. Abnormal electrolytes addressed. May 15: Labs reviewed. Renal parameters stable. Discussed with RN. Patient remains intubated on ventilator and full code. Continue per consultants. May 14: Labs reviewed. Discussed with RN. Abnormal electrolyte addressed. Continue per current management. Patient seen in ICU. Discussed with RN. Today's labs pending. Patient remains on 6 mics of dopamine. Pulmonary support Monitor intake and output Monitor electrolytes Continue per consultants Per orders Subjective ROS Limited/Unobtainable: Yes Objective Objective Last 24 Hour Vital Signs Date Time Temp Pulse Resp B/P (MAP) Pulse Ox O2 Delivery O2 Flow Rate FiO2 05/18/20 10:31 69 14 50 05/18/20 10:00 72 13 106/35 (58) 94 05/18/20 09:00 79 20 95/77 (83) 98 05/18/20 08:00 67 14 100/43 (62) 96 05/18/20 08:00 Mechanical Ventilator 05/18/20 07:50 50 05/18/20 07:31 68 05/18/20 07:25 67 14 50 05/18/20 07:07 67 16 90/34 (52) 99 05/18/20 07:00 67 16 90/34 (52) 99 05/18/20 06:30 72 17 05/18/20 06:30 72 17 113/37 (62) 99 05/18/20 06:00 67 14 106/37 (60) 99 05/18/20 05:00 73 18 115/38 (63) 100 05/18/20 04:00 82 05/18/20 04:00 Mechanical Ventilator 05/18/20 04:00 70 05/18/20 04:00 98.5 71 15 108/36 (60) 100 05/18/20 03:10 81 19 70 05/18/20 03:00 79 23 109/43 (65) 100 05/18/20 02:00 70 14 96/38 (57) 100 05/18/20 01:00 80 22 93/40 (57) 100 05/18/20 00:30 65 12 96/30 (52) 100 05/18/20 00:00 66 05/18/20 00:00 70 05/18/20 00:00 98.5 76 17 110/39 (62) 100 05/18/20 00:00 Mechanical Ventilator 05/17/20 23:10 70 17 70 05/17/20 23:00 64 13 97/31 (53) 99 05/17/20 22:00 73 14 107/38 (61) 100 05/17/20 21:00 64 13 90/32 (51) 100 05/17/20 20:00 70 05/17/20 20:00 98.7 69 13 99/32 (54) 99 05/17/20 20:00 Mechanical Ventilator 05/17/20 20:00 70 05/17/20 19:00 75 14 91/32 98 05/17/20 19:00 76 14 91/32 (51) 98 05/17/20 18:51 81 12 70 05/17/20 18:30 100 21 116/66 (83) 100 05/17/20 18:30 100 29 109/77 98 05/17/20 18:00 99.1 96 23 109/77 (88) 95 05/17/20 17:00 76 17 94/37 (56) 95 05/17/20 16:13 86 05/17/20 16:00 84 19 105/44 (64) 100 05/17/20 16:00 Mechanical Ventilator 05/17/20 16:00 70 05/17/20 15:34 87 22 70 05/17/20 15:00 76 17 100/39 (59) 97 05/17/20 14:00 80 14 99/40 (59) 96 05/17/20 13:00 103 22 127/49 (75) 98 05/17/20 12:39 100 05/17/20 12:36 98 18 116/43 99 05/17/20 12:06 107 20 130/48 96 05/17/20 12:00 Mechanical Ventilator 05/17/20 12:00 99.0 107 20 130/48 (75) 96 05/17/20 12:00 70 05/17/20 11:36 98.2 05/17/20 11:14 106 17 100 05/17/20 11:00 110 22 153/59 (90) 93 Intake and Output 05/17/20 05/18/20 19:00 07:00 Intake Total 565.000 ml 400 ml Output Total 440 ml 330 ml Balance 125.000 ml 70 ml IV Total 425.000 ml Tube Feeding 140 ml 400 ml Output Urine Total 440 ml 330 ml Current Medications Medications (Trade) Dose Ordered Sig/Angie Route PRN Reason Start Time Stop Time Status Last Admin Dose Admin Acetaminophen (Tylenol) 650 mg Q6H PRN NG Fever >100.5 05/14/20 21:00 06/13/20 20:59 05/14/20 21:10 Acetaminophen (Tylenol) 650 mg Q6H PRN NG Mild Pain (Pain Scale 1-3) 05/14/20 21:00 06/13/20 20:59 05/17/20 11:06 Chlorhexidine Gluconate (Ruba-Hex 2%) 1 applic DAILY@1999 TOPIC 05/15/20 20:00 08/13/20 19:59 05/17/20 19:54 Clonidine HCl (Catapres Tab) 0.1 mg Q4H PRN ORAL sbp>170 05/11/20 17:15 08/09/20 17:14 Dexamethasone Sodium Phosphate (Decadron 10mg/ ml Inj) 6 mg DAILY IV 05/12/20 15:45 05/21/20 15:44 05/18/20 08:42 Dopamine HCl/ Dextrose 250 ml @ 0 mls/hr Q24H IV 05/15/20 13:00 05/18/20 12:46 05/17/20 02:03 Haloperidol Lactate (Haldol) 5 mg Q6H PRN IM Agitation 05/13/20 20:45 06/27/20 20:44 05/17/20 09:45 Levofloxacin 150 ml @ 100 mls/hr Q24H IVPB 05/16/20 12:00 05/23/20 11:59 05/17/20 11:07 Levothyroxine Sodium (Synthroid) 50 mcg DAILY@0630 ORAL 05/14/20 06:30 06/13/20 06:29 05/18/20 06:30 Lorazepam (Ativan 2mg/ml 1ml) 1 mg Q4H PRN IV For Anxiety 05/17/20 12:00 05/24/20 11:59 05/17/20 18:30 Potassium Phosphate 20 mm/ Sodium Chloride 281.6667 ml @ 46.944 m... ONCE ONCE IV 05/18/20 11:30 05/18/20 17:29 Vancomycin HCl (Vanco pharmacy to dose) 1 ea DAILY PRN MISC Per rx protocol 05/15/20 08:45 06/14/20 08:44 Vancomycin HCl 1.25 gm/Dextrose 275 ml @ 183.708 mls/hr Q24H IVPB 05/16/20 11:00 05/21/20 10:59 05/17/20 11:07 Laboratory Tests 05/18/20 05:06: White Blood Count 8.9, Red Blood Count 2.43L, Hemoglobin 7.9L, Hematocrit 23.3L, Mean Corpuscular Volume 96, Mean Corpuscular Hemoglobin 32.5H, Mean Corpuscular Hemoglobin Concent 33.9, Red Cell Distribution Width 13.7, Platelet Count 213, Mean Platelet Volume 6.8, Neutrophils (%) (Auto) , Lymphocytes (%) (Auto) , Monocytes (%) (Auto) , Eosinophils (%) (Auto) , Basophils (%) (Auto) , Differential Total Cells Counted 100, Neutrophils % (Manual) 83H, Lymphocytes % (Manual) 13L, Monocytes % (Manual) 4, Eosinophils % (Manual) 0, Basophils % (Manual) 0, Band Neutrophils 0, Platelet Estimate Adequate, Platelet Morphology Normal, Hypochromasia 1+, Sodium Level 147H, Potassium Level 4.1, Chloride Level 114H, Carbon Dioxide Level 27, Anion Gap 6, Blood Urea Nitrogen 39H, Creatinine 1.2, Estimat Glomerular Filtration Rate 43.3, Glucose Level 121H, Uric Acid 8.4H , Calcium Level 7.6L, Phosphorus Level 1.9L, Magnesium Level 2.4, Total Bilirubin 0.5, Aspartate Amino Transf (AST/SGOT) 23, Alanine Aminotransferase (ALT/SGPT) 11L, Alkaline Phosphatase 40L, Total Protein 6.2L, Albumin 2.5L, Globulin 3.7, Albumin/Globulin Ratio 0.7L Height (Feet): 5 Height (Inches): 3.00 Weight (Pounds): 170 General Appearance: no apparent distress EENT: other - Intubated on ventilator Cardiovascular: normal rate Respiratory/Chest: decreased breath sounds Abdomen: soft Bryan Ochoa MD May 18, 2020 10:58
--- NOTE | 2020-05-18 10:59 | Diagnostic Imaging Report ---
EXAM: XR Chest, 1 View CLINICAL HISTORY: F/U TECHNIQUE: Frontal view of the chest. COMPARISON: Chest radiograph on 01/08/2020 FINDINGS: Hardware: Endotracheal tube terminates in the region of the mid thoracic trachea, approximately 3.4 cm above the du. An enteric tube courses past the diaphragm and out of the [id number]. Lungs/pleura: Patchy opacities throughout the lungs. No pleural effusion or pneumothorax. Heart/mediastinum: Stable enlargement of the cardiac silhouette. Atherosclerotic calcifications of the aorta. Soft tissues: Unremarkable. Bones: No acute fracture. Upper abdomen: Normal. IMPRESSION: 1. Endotracheal tube terminates in the region of the mid thoracic trachea, approximately 3.4 cm above the du. An enteric tube courses past the diaphragm and out of the [id number]. 2. Patchy opacities throughout the lungs, concerning for an infectious/inflammatory process such as viral pneumonia.
[2020-05-18] MEDS ORDERED: Potassium Phosphate 20 MM in NS 275 ML IV ONE (11:30)
[2020-05-18] MEDS: Vancomycin 1.25 GM in D5W 275 ML IVPB SCH (11:30)
--- NOTE | 2020-05-18 12:23 | Infectious Diseases Prog Note ---
Assessment/Plan Assessment/Plan IMPRESSION: COVID-19 disease, Acute respiratory failure, COPD, Diastolic CHF, Mitral valve regurgitation, Anemia, Parkinson disease, schizoaffective disorder, Dementia, Obstructive sleep apnea, Hypothyroidism. 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 RECOMMENDATION: Continue dexamethasone Continue Remdesivir X 5 more days Change Levaquin & Vancomycin Subjective ROS Limited/Unobtainable: Yes Respiratory: Reports: other - failed weaning Allergies: Coded Allergies: LITHIUM (Verified Allergy, Unknown, 02/07/19) Objective Last 24 Hour Vital Signs Date Time Temp Pulse Resp B/P (MAP) Pulse Ox O2 Delivery O2 Flow Rate FiO2 05/18/20 11:00 77 18 120/38 (65) 94 05/18/20 10:31 69 14 50 05/18/20 10:00 72 13 106/35 (58) 94 05/18/20 09:00 79 20 95/77 (83) 98 05/18/20 08:00 67 14 100/43 (62) 96 05/18/20 08:00 Mechanical Ventilator 05/18/20 07:50 50 05/18/20 07:31 68 05/18/20 07:25 67 14 50 05/18/20 07:07 67 16 90/34 (52) 99 05/18/20 07:00 67 16 90/34 (52) 99 05/18/20 06:30 72 17 05/18/20 06:30 72 17 113/37 (62) 99 05/18/20 06:00 67 14 106/37 (60) 99 05/18/20 05:00 73 18 115/38 (63) 100 05/18/20 04:00 82 05/18/20 04:00 Mechanical Ventilator 05/18/20 04:00 70 05/18/20 04:00 98.5 71 15 108/36 (60) 100 05/18/20 03:10 81 19 70 05/18/20 03:00 79 23 109/43 (65) 100 05/18/20 02:00 70 14 96/38 (57) 100 05/18/20 01:00 80 22 93/40 (57) 100 05/18/20 00:30 65 12 96/30 (52) 100 05/18/20 00:00 66 05/18/20 00:00 70 05/18/20 00:00 98.5 76 17 110/39 (62) 100 05/18/20 00:00 Mechanical Ventilator 05/17/20 23:10 70 17 70 05/17/20 23:00 64 13 97/31 (53) 99 05/17/20 22:00 73 14 107/38 (61) 100 05/17/20 21:00 64 13 90/32 (51) 100 05/17/20 20:00 70 05/17/20 20:00 98.7 69 13 99/32 (54) 99 05/17/20 20:00 Mechanical Ventilator 05/17/20 20:00 70 05/17/20 19:00 75 14 91/32 98 05/17/20 19:00 76 14 91/32 (51) 98 05/17/20 18:51 81 12 70 05/17/20 18:30 100 21 116/66 (83) 100 05/17/20 18:30 100 29 109/77 98 05/17/20 18:00 99.1 96 23 109/77 (88) 95 05/17/20 17:00 76 17 94/37 (56) 95 05/17/20 16:13 86 05/17/20 16:00 84 19 105/44 (64) 100 05/17/20 16:00 Mechanical Ventilator 05/17/20 16:00 70 05/17/20 15:34 87 22 70 05/17/20 15:00 76 17 100/39 (59) 97 05/17/20 14:00 80 14 99/40 (59) 96 05/17/20 13:00 103 22 127/49 (75) 98 05/17/20 12:39 100 05/17/20 12:36 98 18 116/43 99 Height (Feet): 5 Height (Inches): 3.00 Weight (Pounds): 170 HEENT: mucous membranes moist Respiratory/Chest: lungs clear Cardiovascular: normal rate Abdomen: soft, non tender Neurologic/Psychiatric: other - sleeping Laboratory Tests Test 05/18/20 05:06 05/18/20 10:45 White Blood Count 8.9 K/UL (4.8-10.8) Red Blood Count 2.43 M/UL (4.20-5.40) L Hemoglobin 7.9 G/DL (12.0-16.0) L Hematocrit 23.3 % (37.0-47.0) L Mean Corpuscular Volume 96 FL (80-99) Mean Corpuscular Hemoglobin 32.5 PG (27.0-31.0) H Mean Corpuscular Hemoglobin Concent 33.9 G/DL (32.0-36.0) Red Cell Distribution Width 13.7 % (11.6-14.8) Platelet Count 213 K/UL (150-450) Mean Platelet Volume 6.8 FL (6.5-10.1) Neutrophils (%) (Auto) % (45.0-75.0) Lymphocytes (%) (Auto) % (20.0-45.0) Monocytes (%) (Auto) % (1.0-10.0) Eosinophils (%) (Auto) % (0.0-3.0) Basophils (%) (Auto) % (0.0-2.0) Differential Total Cells Counted 100 Neutrophils % (Manual) 83 % (45-75) H Lymphocytes % (Manual) 13 % (20-45) L Monocytes % (Manual) 4 % (1-10) Eosinophils % (Manual) 0 % (0-3) Basophils % (Manual) 0 % (0-2) Band Neutrophils 0 % (0-8) Platelet Estimate Adequate Platelet Morphology Normal Hypochromasia 1+ Sodium Level 147 MMOL/L (136-145) H Potassium Level 4.1 MMOL/L (3.5-5.1) Chloride Level 114 MMOL/L (98-107) H Carbon Dioxide Level 27 MMOL/L (21-32) Anion Gap 6 mmol/L (5-15) Blood Urea Nitrogen 39 mg/dL (7-18) H Creatinine 1.2 MG/DL (0.55-1.30) Estimat Glomerular Filtration Rate 43.3 mL/min (>60) Glucose Level 121 MG/DL (74-106) H Uric Acid 8.4 MG/DL (2.6-7.2) H Calcium Level 7.6 MG/DL (8.5-10.1) L Phosphorus Level 1.9 MG/DL (2.5-4.9) L Magnesium Level 2.4 MG/DL (1.8-2.4) Total Bilirubin 0.5 MG/DL (0.2-1.0) Aspartate Amino Transf (AST/SGOT) 23 U/L (15-37) Alanine Aminotransferase (ALT/SGPT) 11 U/L (12-78) L Alkaline Phosphatase 40 U/L (46-116) L Total Protein 6.2 G/DL (6.4-8.2) L Albumin 2.5 G/DL (3.4-5.0) L Globulin 3.7 g/dL Albumin/Globulin Ratio 0.7 (1.0-2.7) L Vancomycin Level Trough 18.1 ug/mL (5.0-12.0) H Current Medications Medications (Trade) Dose Ordered Sig/Angie Route PRN Reason Start Time Stop Time Status Last Admin Dose Admin Acetaminophen (Tylenol) 650 mg Q6H PRN NG Fever >100.5 05/14/20 21:00 06/13/20 20:59 05/14/20 21:10 Acetaminophen (Tylenol) 650 mg Q6H PRN NG Mild Pain (Pain Scale 1-3) 05/14/20 21:00 06/13/20 20:59 05/17/20 11:06 Chlorhexidine Gluconate (Ruba-Hex 2%) 1 applic DAILY@1999 TOPIC 05/15/20 20:00 08/13/20 19:59 05/17/20 19:54 Clonidine HCl (Catapres Tab) 0.1 mg Q4H PRN ORAL sbp>170 05/11/20 17:15 08/09/20 17:14 Dexamethasone Sodium Phosphate (Decadron 10mg/ ml Inj) 6 mg DAILY IV 05/12/20 15:45 05/21/20 15:44 05/18/20 08:42 Dopamine HCl/ Dextrose 250 ml @ 0 mls/hr Q24H IV 05/15/20 13:00 05/18/20 12:46 05/17/20 02:03 Haloperidol Lactate (Haldol) 5 mg Q6H PRN IM Agitation 05/13/20 20:45 06/27/20 20:44 05/17/20 09:45 Levofloxacin 150 ml @ 100 mls/hr Q24H IVPB 05/16/20 12:00 05/23/20 11:59 05/18/20 11:28 Levothyroxine Sodium (Synthroid) 50 mcg DAILY@0630 ORAL 05/14/20 06:30 06/13/20 06:29 05/18/20 06:30 Lorazepam (Ativan 2mg/ml 1ml) 1 mg Q4H PRN IV For Anxiety 05/17/20 12:00 05/24/20 11:59 05/17/20 18:30 Potassium Phosphate 20 mm/ Sodium Chloride 281.6667 ml @ 46.944 m... ONCE ONCE IV 05/18/20 11:30 05/18/20 17:29 05/18/20 11:28 Vancomycin HCl (Vanco pharmacy to dose) 1 ea DAILY PRN MISC Per rx protocol 05/15/20 08:45 06/14/20 08:44 Vancomycin HCl 1.25 gm/Dextrose 275 ml @ 183.708 mls/hr Q24H IVPB 05/16/20 11:00 05/21/20 10:59 05/18/20 11:30 Lei Chan MD May 18, 2020 12:23
--- NOTE | 2020-05-18 14:57 | Pulmonology Progress Note ---
Subjective ROS Limited/Unobtainable: Yes Interval Events: Remains intubated; unable to wean yesterday Constitutional: Denies: fever HEENT: Repors: no symptoms Respiratory: Reports: no symptoms Cardiovascular: Reports: no symptoms Gastrointestinal/Abdominal: Reports: no symptoms Genitourinary: Reports: no symptoms Allergies: Coded Allergies: LITHIUM (Verified Allergy, Unknown, 02/07/19) Objective Last 24 Hour Vital Signs Date Time Temp Pulse Resp B/P (MAP) Pulse Ox O2 Delivery O2 Flow Rate FiO2 05/18/20 14:00 72 14 93/34 (53) 96 05/18/20 13:00 84 20 111/41 (64) 97 05/18/20 12:00 Mechanical Ventilator 05/18/20 12:00 50 05/18/20 12:00 98.2 71 15 110/41 (64) 95 05/18/20 11:00 77 18 120/38 (65) 94 05/18/20 10:31 69 14 50 05/18/20 10:00 72 13 106/35 (58) 94 05/18/20 09:00 79 20 95/77 (83) 98 05/18/20 08:00 98.2 67 14 100/43 (62) 96 05/18/20 08:00 Mechanical Ventilator 05/18/20 07:50 50 05/18/20 07:31 68 05/18/20 07:25 67 14 50 05/18/20 07:07 67 16 90/34 (52) 99 05/18/20 07:00 67 16 90/34 (52) 99 05/18/20 06:30 72 17 05/18/20 06:30 72 17 113/37 (62) 99 05/18/20 06:00 67 14 106/37 (60) 99 05/18/20 05:00 73 18 115/38 (63) 100 05/18/20 04:00 82 05/18/20 04:00 Mechanical Ventilator 05/18/20 04:00 70 05/18/20 04:00 98.5 71 15 108/36 (60) 100 05/18/20 03:10 81 19 70 05/18/20 03:00 79 23 109/43 (65) 100 05/18/20 02:00 70 14 96/38 (57) 100 05/18/20 01:00 80 22 93/40 (57) 100 05/18/20 00:30 65 12 96/30 (52) 100 05/18/20 00:00 66 05/18/20 00:00 70 05/18/20 00:00 98.5 76 17 110/39 (62) 100 05/18/20 00:00 Mechanical Ventilator 05/17/20 23:10 70 17 70 05/17/20 23:00 64 13 97/31 (53) 99 05/17/20 22:00 73 14 107/38 (61) 100 05/17/20 21:00 64 13 90/32 (51) 100 05/17/20 20:00 70 05/17/20 20:00 98.7 69 13 99/32 (54) 99 05/17/20 20:00 Mechanical Ventilator 05/17/20 20:00 70 05/17/20 19:00 75 14 91/32 98 05/17/20 19:00 76 14 91/32 (51) 98 05/17/20 18:51 81 12 70 05/17/20 18:30 100 21 116/66 (83) 100 05/17/20 18:30 100 29 109/77 98 05/17/20 18:00 99.1 96 23 109/77 (88) 95 05/17/20 17:00 76 17 94/37 (56) 95 05/17/20 16:13 86 05/17/20 16:00 84 19 105/44 (64) 100 05/17/20 16:00 Mechanical Ventilator 05/17/20 16:00 70 05/17/20 15:34 87 22 70 05/17/20 15:00 76 17 100/39 (59) 97 Intake and Output 05/17/20 05/18/20 19:00 07:00 Intake Total 565.000 ml 400 ml Output Total 440 ml 330 ml Balance 125.000 ml 70 ml IV Total 425.000 ml Tube Feeding 140 ml 400 ml Output Urine Total 440 ml 330 ml General Appearance: no acute distress HEENT: normocephalic Respiratory: no respiratory distress, decreased breath sounds, other - On ventilator, FiO2 60% Cardiovascular: JVD Abdomen: soft, non tender, other - obese, NG tube Extremities: other - b/l 2+ pitting edema Neurologic: disoriented Laboratory Tests 05/18/20 05:06: White Blood Count 8.9, Red Blood Count 2.43L, Hemoglobin 7.9L, Hematocrit 23.3L, Mean Corpuscular Volume 96, Mean Corpuscular Hemoglobin 32.5H, Mean Corpuscular Hemoglobin Concent 33.9, Red Cell Distribution Width 13.7, Platelet Count 213, Mean Platelet Volume 6.8, Neutrophils (%) (Auto) , Lymphocytes (%) (Auto) , Monocytes (%) (Auto) , Eosinophils (%) (Auto) , Basophils (%) (Auto) , Differential Total Cells Counted 100, Neutrophils % (Manual) 83H, Lymphocytes % (Manual) 13L, Monocytes % (Manual) 4, Eosinophils % (Manual) 0, Basophils % (Manual) 0, Band Neutrophils 0, Platelet Estimate Adequate, Platelet Morphology Normal, Hypochromasia 1+, Sodium Level 147H, Potassium Level 4.1, Chloride Level 114H, Carbon Dioxide Level 27, Anion Gap 6, Blood Urea Nitrogen 39H, Creatinine 1.2, Estimat Glomerular Filtration Rate 43.3, Glucose Level 121H, Uric Acid 8.4H , Calcium Level 7.6L, Phosphorus Level 1.9L, Magnesium Level 2.4, Total Bilirubin 0.5, Aspartate Amino Transf (AST/SGOT) 23, Alanine Aminotransferase (ALT/SGPT) 11L, Alkaline Phosphatase 40L, Total Protein 6.2L, Albumin 2.5L, Glob ulin 3.7, Albumin/Globulin Ratio 0.7L 05/18/20 10:45: Vancomycin Level Trough 18.1H Current Medications Medications (Trade) Dose Ordered Sig/Angie Route PRN Reason Start Time Stop Time Status Last Admin Dose Admin Acetaminophen (Tylenol) 650 mg Q6H PRN NG Fever >100.5 05/14/20 21:00 06/13/20 20:59 05/14/20 21:10 Acetaminophen (Tylenol) 650 mg Q6H PRN NG Mild Pain (Pain Scale 1-3) 05/14/20 21:00 06/13/20 20:59 05/17/20 11:06 Chlorhexidine Gluconate (Ruba-Hex 2%) 1 applic DAILY@2000 TOPIC 05/15/20 20:00 08/13/20 19:59 05/17/20 19:54 Clonidine HCl (Catapres Tab) 0.1 mg Q4H PRN ORAL sbp>170 05/11/20 17:15 08/09/20 17:14 Dexamethasone Sodium Phosphate (Decadron 10mg/ ml Inj) 6 mg DAILY IV 05/12/20 15:45 05/21/20 15:44 05/18/20 08:42 Haloperidol Lactate (Haldol) 5 mg Q6H PRN IM Agitation 05/13/20 20:45 06/27/20 20:44 05/17/20 09:45 Levofloxacin 150 ml @ 100 mls/hr Q24H IVPB 05/16/20 12:00 05/23/20 11:59 05/18/20 11:28 Levothyroxine Sodium (Synthroid) 50 mcg DAILY@0630 ORAL 05/14/20 06:30 06/13/20 06:29 05/18/20 06:30 Lorazepam (Ativan 2mg/ml 1ml) 1 mg Q4H PRN IV For Anxiety 05/17/20 12:00 05/24/20 11:59 05/17/20 18:30 Potassium Phosphate 20 mm/ Sodium Chloride 281.6667 ml @ 46.944 m... ONCE ONCE IV 05/18/20 11:30 05/18/20 17:29 05/18/20 11:28 Remdesivir 100 mg/ Sodium Chloride 250 ml @ 250 mls/hr Q24H IV 05/18/20 21:00 05/22/20 21:59 Vancomycin HCl (Vanco pharmacy to dose) 1 ea DAILY PRN MISC Per rx protocol 05/15/20 08:45 06/14/20 08:44 Vancomycin HCl 1.25 gm/Dextrose 275 ml @ 183.708 mls/hr Q24H IVPB 05/16/20 11:00 05/21/20 10:59 05/18/20 11:30 Assessment/Plan Assessment/Plan 1. Bilateral COVID-19 multilobar pneumonia. - s/p ETT - Afebrile - Continue Azithromycin, Ceftriaxone, dexamethasone - On remdesivi initiated - defer to ID 2. Hx of COPD. 3. Schizophrenia/psychosis - On dopamine, haloperidol 4. Hypoxia. - Weaning failed today; attempt again tomorrow - Cont vent; AC mode 5. Anemia - hgb 9.6 -> 7.9 6. Azotemia/renal failure - UA: Positive leuk esterase, protein, RBC, WBC (05/11/2020) - BUN 32 -> 39 The care for this patient was discussed with my supervising physician Seen and examined by Dr. Myers as well The history of Alcira Gonzalez has been reviewed and management options for her have been examined and discussed by Sincere Myers. I have personally examined and interviewed the patient. Time spent for this case was 31 minutes Trae Avilez May 18, 2020 14:57 Sincere Myers MD May 18, 2020 16:58
[2020-05-18] MEDS ORDERED: Maintenance Dose:Remdesivir 100mg/NS 230ml x 4 Doses IV SCH ×4 (15:00)
[2020-05-18] MEDS ORDERED: Tubing IV Secondary IV ONE (18:03)
[2020-05-18] MEDS ORDERED: NS 275ml ONE (18:03)
[2020-05-18] MEDS: LORazepam Inj 2mg/ml 1ml IV PRN ×2 (18:38→23:02)
[2020-05-18] MEDS: Dyna-Hex 2% Top Sol 2oz TOPIC SCH ×2 (20:00→21:02)
--- NOTE | 2020-05-18 20:48 | Cardiac Electrophysiology PN ---
Assessment/Plan Assessment/Plan 1. Covid PNA Intubated on the Vent with 70% Fio2 2. History of COPD. 3. Hypotension. Off Dopamine now. EF 55% 4. Bradycardia on Dopamine 5. Schizophrenia and psychosis. DW RN Subjective Subjective Intubated in ICU . Covid is positive. On 50% Fio2 and off Dopamine Objective Last 24 Hour Vital Signs Date Time Temp Pulse Resp B/P (MAP) Pulse Ox O2 Delivery O2 Flow Rate FiO2 05/18/20 19:18 84 16 50 05/18/20 19:08 87 16 104/42 96 05/18/20 19:00 87 16 104/42 (62) 96 05/18/20 18:38 99 23 123/53 98 05/18/20 18:00 101 20 126/48 (74) 98 05/18/20 17:00 99.0 98 22 95/40 (58) 97 05/18/20 16:00 Mechanical Ventilator 05/18/20 16:00 84 18 101/48 (65) 97 05/18/20 16:00 50 05/18/20 15:20 84 05/18/20 15:06 85 22 50 05/18/20 15:00 83 22 118/46 (70) 98 05/18/20 14:00 72 14 93/34 (53) 96 05/18/20 13:00 84 20 111/41 (64) 97 05/18/20 12:00 Mechanical Ventilator 05/18/20 12:00 50 05/18/20 12:00 98.2 71 15 110/41 (64) 95 05/18/20 11:18 74 05/18/20 11:00 77 18 120/38 (65) 94 05/18/20 10:31 69 14 50 05/18/20 10:00 72 13 106/35 (58) 94 05/18/20 09:00 79 20 95/77 (83) 98 05/18/20 08:00 98.2 67 14 100/43 (62) 96 05/18/20 08:00 Mechanical Ventilator 05/18/20 07:50 50 05/18/20 07:31 68 05/18/20 07:25 67 14 50 05/18/20 07:07 67 16 90/34 (52) 99 05/18/20 07:00 67 16 90/34 (52) 99 05/18/20 06:30 72 17 05/18/20 06:30 72 17 113/37 (62) 99 05/18/20 06:00 67 14 106/37 (60) 99 05/18/20 05:00 73 18 115/38 (63) 100 05/18/20 04:00 82 05/18/20 04:00 Mechanical Ventilator 05/18/20 04:00 70 05/18/20 04:00 98.5 71 15 108/36 (60) 100 05/18/20 03:10 81 19 70 05/18/20 03:00 79 23 109/43 (65) 100 05/18/20 02:00 70 14 96/38 (57) 100 05/18/20 01:00 80 22 93/40 (57) 100 05/18/20 00:30 65 12 96/30 (52) 100 05/18/20 00:00 66 05/18/20 00:00 70 05/18/20 00:00 98.5 76 17 110/39 (62) 100 05/18/20 00:00 Mechanical Ventilator 05/17/20 23:10 70 17 70 05/17/20 23:00 64 13 97/31 (53) 99 05/17/20 22:00 73 14 107/38 (61) 100 05/17/20 21:00 64 13 90/32 (51) 100 Intake and Output 05/17/20 05/18/20 19:00 07:00 Intake Total 565.000 ml 400 ml Output Total 440 ml 330 ml Balance 125.000 ml 70 ml IV Total 425.000 ml Tube Feeding 140 ml 400 ml Output Urine Total 440 ml 330 ml Laboratory Tests Test 05/18/20 05:06 05/18/20 10:45 White Blood Count 8.9 K/UL (4.8-10.8) Red Blood Count 2.43 M/UL (4.20-5.40) L Hemoglobin 7.9 G/DL (12.0-16.0) L Hematocrit 23.3 % (37.0-47.0) L Mean Corpuscular Volume 96 FL (80-99) Mean Corpuscular Hemoglobin 32.5 PG (27.0-31.0) H Mean Corpuscular Hemoglobin Concent 33.9 G/DL (32.0-36.0) Red Cell Distribution Width 13.7 % (11.6-14.8) Platelet Count 213 K/UL (150-450) Mean Platelet Volume 6.8 FL (6.5-10.1) Neutrophils (%) (Auto) % (45.0-75.0) Lymphocytes (%) (Auto) % (20.0-45.0) Monocytes (%) (Auto) % (1.0-10.0) Eosinophils (%) (Auto) % (0.0-3.0) Basophils (%) (Auto) % (0.0-2.0) Differential Total Cells Counted 100 Neutrophils % (Manual) 83 % (45-75) H Lymphocytes % (Manual) 13 % (20-45) L Monocytes % (Manual) 4 % (1-10) Eosinophils % (Manual) 0 % (0-3) Basophils % (Manual) 0 % (0-2) Band Neutrophils 0 % (0-8) Platelet Estimate Adequate Platelet Morphology Normal Hypochromasia 1+ Sodium Level 147 MMOL/L (136-145) H Potassium Level 4.1 MMOL/L (3.5-5.1) Chloride Level 114 MMOL/L (98-107) H Carbon Dioxide Level 27 MMOL/L (21-32) Anion Gap 6 mmol/L (5-15) Blood Urea Nitrogen 39 mg/dL (7-18) H Creatinine 1.2 MG/DL (0.55-1.30) Estimat Glomerular Filtration Rate 43.3 mL/min (>60) Glucose Level 121 MG/DL (74-106) H Uric Acid 8.4 MG/DL (2.6-7.2) H Calcium Level 7.6 MG/DL (8.5-10.1) L Phosphorus Level 1.9 MG/DL (2.5-4.9) L Magnesium Level 2.4 MG/DL (1.8-2.4) Total Bilirubin 0.5 MG/DL (0.2-1.0) Aspartate Amino Transf (AST/SGOT) 23 U/L (15-37) Alanine Aminotransferase (ALT/SGPT) 11 U/L (12-78) L Alkaline Phosphatase 40 U/L (46-116) L Total Protein 6.2 G/DL (6.4-8.2) L Albumin 2.5 G/DL (3.4-5.0) L Globulin 3.7 g/dL Albumin/Globulin Ratio 0.7 (1.0-2.7) L Vancomycin Level Trough 18.1 ug/mL (5.0-12.0) H Objective HEAD AND NECK: Positive JVD.Orally intubated LUNGS: Decreased breath sounds. CARDIOVASCULAR: Regular S1 and S2 with no gallop. ABDOMEN: Obese. EXTREMITIES: Bilateral 2+ pitting edema. Cameron Davies MD May 18, 2020 20:48
--- NOTE | 2020-05-18 21:35 | General Progress Note ---
Subjective ROS Limited/Unobtainable: Yes Allergies: Coded Allergies: LITHIUM (Verified Allergy, Unknown, 02/07/19) Objective Last 24 Hour Vital Signs Date Time Temp Pulse Resp B/P (MAP) Pulse Ox O2 Delivery O2 Flow Rate FiO2 05/18/20 19:18 84 16 50 05/18/20 19:08 87 16 104/42 96 05/18/20 19:00 87 16 104/42 (62) 96 05/18/20 18:38 99 23 123/53 98 05/18/20 18:00 101 20 126/48 (74) 98 05/18/20 17:00 99.0 98 22 95/40 (58) 97 05/18/20 16:00 Mechanical Ventilator 05/18/20 16:00 84 18 101/48 (65) 97 05/18/20 16:00 50 05/18/20 15:20 84 05/18/20 15:06 85 22 50 05/18/20 15:00 83 22 118/46 (70) 98 05/18/20 14:00 72 14 93/34 (53) 96 05/18/20 13:00 84 20 111/41 (64) 97 05/18/20 12:00 Mechanical Ventilator 05/18/20 12:00 50 05/18/20 12:00 98.2 71 15 110/41 (64) 95 05/18/20 11:18 74 05/18/20 11:00 77 18 120/38 (65) 94 05/18/20 10:31 69 14 50 05/18/20 10:00 72 13 106/35 (58) 94 05/18/20 09:00 79 20 95/77 (83) 98 05/18/20 08:00 98.2 67 14 100/43 (62) 96 05/18/20 08:00 Mechanical Ventilator 05/18/20 07:50 50 05/18/20 07:31 68 05/18/20 07:25 67 14 50 05/18/20 07:07 67 16 90/34 (52) 99 05/18/20 07:00 67 16 90/34 (52) 99 05/18/20 06:30 72 17 05/18/20 06:30 72 17 113/37 (62) 99 05/18/20 06:00 67 14 106/37 (60) 99 05/18/20 05:00 73 18 115/38 (63) 100 05/18/20 04:00 82 05/18/20 04:00 Mechanical Ventilator 05/18/20 04:00 70 05/18/20 04:00 98.5 71 15 108/36 (60) 100 05/18/20 03:10 81 19 70 05/18/20 03:00 79 23 109/43 (65) 100 05/18/20 02:00 70 14 96/38 (57) 100 05/18/20 01:00 80 22 93/40 (57) 100 05/18/20 00:30 65 12 96/30 (52) 100 05/18/20 00:00 66 05/18/20 00:00 70 05/18/20 00:00 98.5 76 17 110/39 (62) 100 05/18/20 00:00 Mechanical Ventilator 05/17/20 23:10 70 17 70 05/17/20 23:00 64 13 97/31 (53) 99 05/17/20 22:00 73 14 107/38 (61) 100 Intake and Output 05/17/20 05/18/20 19:00 07:00 Intake Total 565.000 ml 400 ml Output Total 440 ml 330 ml Balance 125.000 ml 70 ml IV Total 425.000 ml Tube Feeding 140 ml 400 ml Output Urine Total 440 ml 330 ml Laboratory Tests 05/18/20 05:06: White Blood Count 8.9, Red Blood Count 2.43L, Hemoglobin 7.9L, Hematocrit 23.3L, Mean Corpuscular Volume 96, Mean Corpuscular Hemoglobin 32.5H, Mean Corpuscular Hemoglobin Concent 33.9, Red Cell Distribution Width 13.7, Platelet Count 213, Mean Platelet Volume 6.8, Neutrophils (%) (Auto) , Lymphocytes (%) (Auto) , Monocytes (%) (Auto) , Eosinophils (%) (Auto) , Basophils (%) (Auto) , Di fferential Total Cells Counted 100, Neutrophils % (Manual) 83H, Lymphocytes % (Manual) 13L, Monocytes % (Manual) 4, Eosinophils % (Manual) 0, Basophils % (Manual) 0, Band Neutrophils 0, Platelet Estimate Adequate, Platelet Morphology Normal, Hypochromasia 1+, Sodium Level 147H, Potassium Level 4.1, Chloride Level 114H, Carbon Dioxide Level 27, Anion Gap 6, Blood Urea Nitrogen 39H, Creatinine 1.2, Estimat Glomerular Filtration Rate 43.3, Glucose Level 121H, Uric Acid 8.4H , Calcium Level 7.6L, Phosphorus Level 1.9L, Magnesium Level 2.4, Total Bilirubin 0.5, Aspartate Amino Transf (AST/SGOT) 23, Alanine Aminotransferase (ALT/SGPT) 11L, Alkaline Phosphatase 40L, Total Protein 6.2L, Albumin 2.5L, Globulin 3.7, Albumin/Globulin Ratio 0.7L 05/18/20 10:45: Vancomycin Level Trough 18.1H Height (Feet): 5 Height (Inches): 3.00 Weight (Pounds): 170 Assessment/Plan Problem List: (1) Anemia ICD Codes: D64.9 - Anemia, unspecified SNOMED: 761945985 (2) Hypercapnic respiratory failure ICD Codes: J96.92 - Respiratory failure, unspecified with hypercapnia SNOMED: 750293353 (3) COVID-19 ICD Codes: U07.1 - COVID-19 SNOMED: 498724217 (4) COPD (chronic obstructive pulmonary disease) ICD Codes: J44.9 - Chronic obstructive pulmonary disease, unspecified SNOMED: 03727765 (5) Psychosis ICD Codes: F29 - Unspecified psychosis not due to a substance or known physiological condition SNOMED: 01357260 (6) Hypoxia ICD Codes: R09.02 - Hypoxemia SNOMED: 631374777 (7) Renal failure (ARF), acute on chronic ICD Codes: N17.9 - Acute kidney failure, unspecified; N18.9 - Chronic kidney disease, unspecified SNOMED: 661236791 (8) CHF exacerbation ICD Codes: I50.9 - Heart failure, unspecified SNOMED: 632646949, [id number] Status: progressing, unchanged Assessment/Plan: no change poor prognosis afebrile resp failure copd exacerbation no wheezing covid positive pna septic shock Dani Snyder MD May 18, 2020 21:35
[2020-05-19] VITALS (24 sets, daily range): BP systolic 94–144; BP diastolic 31–68
[2020-05-19] MEDS: LORazepam Inj 2mg/ml 1ml IV PRN ×2 (04:12→09:17)
[2020-05-19 07:03] LABS: BASOPHILS % (AUTO) 0.2 % (0.0-2.0); EOSINOPHILS % (AUTO) 0.1 % (0.0-3.0); HEMATOCRIT 23.7 % (37.0-47.0); HEMOGLOBIN 8.4 G/DL (12.0-16.0); LYMPHOCYTES % (AUTO) 15.8 % (20.0-45.0); MEAN CORPUSCULAR VOLUME 94 FL (80-99); MONOCYTES % (AUTO) 2.5 % (1.0-10.0); NEUTROPHILS % (AUTO) 81.4 % (45.0-75.0); PLATELET COUNT 219 K/UL (150-450); RED BLOOD COUNT 2.51 M/UL (4.20-5.40); RED CELL DISTRIBUTION WIDTH 13.7 % (11.6-14.8)
[2020-05-19 07:08] LABS: ALBUMIN 2.6 G/DL (3.4-5.0); ALBUMIN/GLOBULIN RATIO 0.7 (1.0-2.7); BILIRUBIN,DIRECT 0.1 MG/DL (0.0-0.3); BILIRUBIN,TOTAL 0.5 MG/DL (0.2-1.0); CALCIUM 7.9 MG/DL (8.5-10.1); CREATININE 1.2 MG/DL (0.55-1.30)
[2020-05-19] MEDS: dexAMETHasone 10mg/ml Inj IV SCH (09:17)
--- NOTE | 2020-05-19 10:15 | Cardiac Electrophysiology PN ---
Assessment/Plan Assessment/Plan 1. Covid PNA, respiratory failure. Intubated on the Vent with 50% Fio2 Weaning today again 2. History of COPD. 3. Hypotension. Off Dopamine x 2 days. EF 55% 4. Bradycardia resolved and is off Dopamine 5. Schizophrenia and psychosis. DW RN Subjective Subjective Intubated in ICU restless. Covid is positive. On 50% Fio2 and off Dopamine. VSS off Dopamine for 2 days Objective Last 24 Hour Vital Signs Date Time Temp Pulse Resp B/P (MAP) Pulse Ox O2 Delivery O2 Flow Rate FiO2 05/19/20 09:17 67 14 124/40 94 05/19/20 09:00 78 18 124/40 (68) 96 05/19/20 08:00 Mechanical Ventilator 05/19/20 08:00 99.0 76 16 120/38 (65) 98 05/19/20 08:00 50 05/19/20 07:49 74 05/19/20 07:20 65 13 40 05/19/20 07:00 77 20 119/37 (64) 97 05/19/20 06:32 75 20 05/19/20 06:00 74 15 116/42 (66) 96 05/19/20 05:00 83 17 127/45 (72) 97 05/19/20 04:42 75 15 116/42 96 05/19/20 04:12 74 16 109/43 99 05/19/20 04:00 98.2 75 15 103/37 (59) 94 05/19/20 04:00 50 05/19/20 04:00 Mechanical Ventilator 05/19/20 03:17 84 05/19/20 03:14 74 16 50 05/19/20 03:00 77 15 109/43 (65) 99 05/19/20 02:00 75 14 108/38 (61) 96 05/19/20 01:00 78 20 118/46 (70) 98 05/19/20 00:00 98.9 91 19 133/53 (79) 99 05/19/20 00:00 50 05/19/20 00:00 Mechanical Ventilator 05/18/20 23:52 86 05/18/20 23:32 73 19 98/40 100 05/18/20 23:02 77 20 110/55 100 05/18/20 23:00 76 14 104/40 (61) 97 05/18/20 22:36 90 18 50 05/18/20 22:00 78 14 108/39 (62) 99 05/18/20 21:30 73 15 98/40 (59) 97 05/18/20 21:00 75 14 110/40 (63) 97 05/18/20 20:30 73 13 95/37 (56) 95 05/18/20 20:00 50 05/18/20 20:00 98.7 76 14 100/40 (60) 94 05/18/20 20:00 Mechanical Ventilator 05/18/20 19:18 84 16 50 05/18/20 19:08 87 16 104/42 96 05/18/20 19:03 86 05/18/20 19:00 87 16 104/42 (62) 96 05/18/20 18:38 99 23 123/53 98 05/18/20 18:00 101 20 126/48 (74) 98 05/18/20 17:00 99.0 98 22 95/40 (58) 97 05/18/20 16:00 Mechanical Ventilator 05/18/20 16:00 84 18 101/48 (65) 97 05/18/20 16:00 50 05/18/20 15:20 84 05/18/20 15:06 85 22 50 05/18/20 15:00 83 22 118/46 (70) 98 05/18/20 14:00 72 14 93/34 (53) 96 05/18/20 13:00 84 20 111/41 (64) 97 05/18/20 12:00 Mechanical Ventilator 05/18/20 12:00 50 05/18/20 12:00 98.2 71 15 110/41 (64) 95 05/18/20 11:18 74 05/18/20 11:00 77 18 120/38 (65) 94 05/18/20 10:31 69 14 50 Intake and Output 05/18/20 05/19/20 19:00 07:00 Intake Total 1706.6667 ml 650 ml Output Total 695 ml 775 ml Balance 1011.6667 ml -125 ml Free Water 150 ml 100 ml IV Total 956.6667 ml Tube Feeding 600 ml 550 ml Output Urine Total 695 ml 775 ml Laboratory Tests Test 05/18/20 10:45 05/19/20 04:00 Vancomycin Level Trough 18.1 ug/mL (5.0-12.0) H White Blood Count 7.0 K/UL (4.8-10.8) Red Blood Count 2.51 M/UL (4.20-5.40) L Hemoglobin 8.4 G/DL (12.0-16.0) L Hematocrit 23.7 % (37.0-47.0) L Mean Corpuscular Volume 94 FL (80-99) Mean Corpuscular Hemoglobin 33.6 PG (27.0-31.0) H Mean Corpuscular Hemoglobin Concent 35.6 G/DL (32.0-36.0) Red Cell Distribution Width 13.7 % (11.6-14.8) Platelet Count 219 K/UL (150-450) Mean Platelet Volume 6.8 FL (6.5-10.1) Neutrophils (%) (Auto) 81.4 % (45.0-75.0) H Lymphocytes (%) (Auto) 15.8 % (20.0-45.0) L Monocytes (%) (Auto) 2.5 % (1.0-10.0) Eosinophils (%) (Auto) 0.1 % (0.0-3.0) Basophils (%) (Auto) 0.2 % (0.0-2.0) Sodium Level 150 MMOL/L (136-145) H Potassium Level 4.0 MMOL/L (3.5-5.1) Chloride Level 115 MMOL/L (98-107) H Carbon Dioxide Level 32 MMOL/L (21-32) Anion Gap 3 mmol/L (5-15) L Blood Urea Nitrogen 34 mg/dL (7-18) H Creatinine 1.2 MG/DL (0.55-1.30) Estimat Glomerular Filtration Rate 43.3 mL/min (>60) Glucose Level 152 MG/DL (74-106) H Calcium Level 7.9 MG/DL (8.5-10.1) L Phosphorus Level 2.0 MG/DL (2.5-4.9) L Magnesium Level 2.5 MG/DL (1.8-2.4) H Total Bilirubin 0.5 MG/DL (0.2-1.0) Direct Bilirubin 0.1 MG/DL (0.0-0.3) Aspartate Amino Transf (AST/SGOT) 16 U/L (15-37) Alanine Aminotransferase (ALT/SGPT) 26 U/L (12-78) Alkaline Phosphatase 45 U/L (46-116) L Total Protein 6.5 G/DL (6.4-8.2) Albumin 2.6 G/DL (3.4-5.0) L Globulin 3.9 g/dL Albumin/Globulin Ratio 0.7 (1.0-2.7) L Objective HEAD AND NECK: Positive JVD.Orally intubated LUNGS: Decreased breath sounds. CARDIOVASCULAR: Regular S1 and S2 with no gallop. ABDOMEN: Obese. EXTREMITIES: Bilateral 2+ pitting edema. Cameron Davies MD May 19, 2020 10:15
--- NOTE | 2020-05-19 10:33 | Nephrology Progress Note ---
Assessment/Plan Problem List: (1) Renal failure (ARF), acute on chronic (2) Hypercapnic respiratory failure (3) CHF exacerbation Assessment Azotemia/renal failure Acute respiratory failure most likely secondary to CHF, on mechanical ventilation History of COPD Hypertension Hyperlipemia Schizophrenia/psychosis Plan May 19: Patient remains intubated. Labs reviewed. Abnormal electrolytes addressed. Continue per current management. May 18: Patient seen in ICU. Remains intubated. Weaning is being tried. Discussed with RN. Labs reviewed. Abnormal electrolyte addressed. Continue per consultants. May 17: Labs reviewed. Remains intubated. Stable from renal standpoint of view. Continue weaning. Discussed with RN. May 16: Labs reviewed. Remains intubated. Remains full code. Stable from renal standpoint of view. Abnormal electrolytes addressed. May 15: Labs reviewed. Renal parameters stable. Discussed with RN. Patient remains intubated on ventilator and full code. Continue per consultants. May 14: Labs reviewed. Discussed with RN. Abnormal electrolyte addressed. Continue per current management. Patient seen in ICU. Discussed with RN. Today's labs pending. Patient remains on 6 mics of dopamine. Pulmonary support Monitor intake and output Monitor electrolytes Continue per consultants Per orders Subjective ROS Limited/Unobtainable: Yes Objective Objective Last 24 Hour Vital Signs Date Time Temp Pulse Resp B/P (MAP) Pulse Ox O2 Delivery O2 Flow Rate FiO2 05/19/20 09:47 63 14 94/31 94 05/19/20 09:17 67 14 124/40 94 05/19/20 09:00 78 18 124/40 (68) 96 05/19/20 08:00 Mechanical Ventilator 05/19/20 08:00 99.0 76 16 120/38 (65) 98 05/19/20 08:00 50 05/19/20 07:49 74 05/19/20 07:20 65 13 40 05/19/20 07:00 77 20 119/37 (64) 97 05/19/20 06:32 75 20 05/19/20 06:00 74 15 116/42 (66) 96 05/19/20 05:00 83 17 127/45 (72) 97 05/19/20 04:42 75 15 116/42 96 05/19/20 04:12 74 16 109/43 99 05/19/20 04:00 98.2 75 15 103/37 (59) 94 05/19/20 04:00 50 05/19/20 04:00 Mechanical Ventilator 05/19/20 03:17 84 05/19/20 03:14 74 16 50 05/19/20 03:00 77 15 109/43 (65) 99 05/19/20 02:00 75 14 108/38 (61) 96 05/19/20 01:00 78 20 118/46 (70) 98 05/19/20 00:00 98.9 91 19 133/53 (79) 99 05/19/20 00:00 50 05/19/20 00:00 Mechanical Ventilator 05/18/20 23:52 86 05/18/20 23:32 73 19 98/40 100 05/18/20 23:02 77 20 110/55 100 05/18/20 23:00 76 14 104/40 (61) 97 05/18/20 22:36 90 18 50 05/18/20 22:00 78 14 108/39 (62) 99 05/18/20 21:30 73 15 98/40 (59) 97 05/18/20 21:00 75 14 110/40 (63) 97 05/18/20 20:30 73 13 95/37 (56) 95 05/18/20 20:00 50 05/18/20 20:00 98.7 76 14 100/40 (60) 94 05/18/20 20:00 Mechanical Ventilator 05/18/20 19:18 84 16 50 05/18/20 19:08 87 16 104/42 96 05/18/20 19:03 86 05/18/20 19:00 87 16 104/42 (62) 96 05/18/20 18:38 99 23 123/53 98 05/18/20 18:00 101 20 126/48 (74) 98 05/18/20 17:00 99.0 98 22 95/40 (58) 97 05/18/20 16:00 Mechanical Ventilator 05/18/20 16:00 84 18 101/48 (65) 97 05/18/20 16:00 50 05/18/20 15:20 84 05/18/20 15:06 85 22 50 05/18/20 15:00 83 22 118/46 (70) 98 05/18/20 14:00 72 14 93/34 (53) 96 05/18/20 13:00 84 20 111/41 (64) 97 05/18/20 12:00 Mechanical Ventilator 05/18/20 12:00 50 05/18/20 12:00 98.2 71 15 110/41 (64) 95 05/18/20 11:18 74 05/18/20 11:00 77 18 120/38 (65) 94 Intake and Output 05/18/20 05/19/20 19:00 07:00 Intake Total 1706.6667 ml 650 ml Output Total 695 ml 775 ml Balance 1011.6667 ml -125 ml Free Water 150 ml 100 ml IV Total 956.6667 ml Tube Feeding 600 ml 550 ml Output Urine Total 695 ml 775 ml Current Medications Medications (Trade) Dose Ordered Sig/Angie Route PRN Reason Start Time Stop Time Status Last Admin Dose Admin Acetaminophen (Tylenol) 650 mg Q6H PRN NG Fever >100.5 05/14/20 21:00 06/13/20 20:59 05/14/20 21:10 Acetaminophen (Tylenol) 650 mg Q6H PRN NG Mild Pain (Pain Scale 1-3) 05/14/20 21:00 06/13/20 20:59 05/17/20 11:06 Chlorhexidine Gluconate (Ruba-Hex 2%) 1 applic DAILY@1999 TOPIC 05/15/20 20:00 08/13/20 19:59 05/18/20 21:02 Clonidine HCl (Catapres Tab) 0.1 mg Q4H PRN ORAL sbp>170 05/11/20 17:15 08/09/20 17:14 Dexamethasone Sodium Phosphate (Decadron 10mg/ ml Inj) 6 mg DAILY IV 05/12/20 15:45 05/21/20 15:44 05/19/20 09:17 Haloperidol Lactate (Haldol) 5 mg Q6H PRN IM Agitation 05/13/20 20:45 06/27/20 20:44 05/17/20 09:45 Levofloxacin 150 ml @ 100 mls/hr Q48H IVPB 05/20/20 12:00 05/23/20 11:59 Levothyroxine Sodium (Synthroid) 50 mcg DAILY@0630 ORAL 05/14/20 06:30 06/13/20 06:29 05/19/20 05:44 Lorazepam (Ativan 2mg/ml 1ml) 1 mg Q4H PRN IV For Anxiety 05/17/20 12:00 05/24/20 11:59 05/19/20 09:17 Remdesivir 100 mg/ Sodium Chloride 250 ml @ 250 mls/hr Q24H IV 05/19/20 21:00 05/22/20 21:59 Vancomycin HCl (Vanco pharmacy to dose) 1 ea DAILY PRN MISC Per rx protocol 05/15/20 08:45 06/14/20 08:44 Vancomycin HCl 1.25 gm/Dextrose 275 ml @ 183.708 mls/hr Q24H IVPB 05/16/20 11:00 05/21/20 10:59 05/18/20 11:30 Laboratory Tests 05/18/20 10:45: Vancomycin Level Trough 18.1H 05/19/20 04:00: White Blood Count 7.0, Red Blood Count 2.51L, Hemoglobin 8.4L, Hematocrit 23.7L, Mean Corpuscular Volume 94, Mean Corpuscular Hemoglobin 33.6H, Mean Corpuscular Hemoglobin Concent 35.6, Red Cell Distribution Width 13.7, Platelet Count 219, Mean Platelet Volume 6.8, Neutrophils (%) (Auto) 81.4H, Lymphocytes (%) (Auto) 15.8L, Monocytes (%) (Auto) 2.5, Eosinophils (%) (Auto) 0.1, Basophils (%) (Auto) 0.2, Sodium Level 150H, Potassium Level 4.0, Chloride Level 115H, Carbon Dioxide Level 32, Anion Gap 3L, Blood Urea Nitrogen 34H, Creatinine 1.2, Estimat Glomerular Filtration Rate 43.3, Glucose Level 152H, Calcium Level 7.9L, Phosphorus Level 2.0L, Magnesium Level 2.5H, Total Bilirubin 0.5, Direct Bilirubin 0.1, Aspartate Amino Transf (AST/SGOT) 16, Alanine Aminotransferase (ALT/SGPT) 26, Alkaline Phosphatase 45L, Total Protein 6.5, Albumin 2.6L, Globulin 3.9, Albumin/Globulin Ratio 0.7L Height (Feet): 5 Height (Inches): 3.00 Weight (Pounds): 170 General Appearance: no apparent distress Cardiovascular: normal rate Respiratory/Chest: decreased breath sounds Abdomen: distended Bryan Ochoa MD May 19, 2020 10:33
--- NOTE | 2020-05-19 10:56 | Infectious Diseases Prog Note ---
Assessment/Plan Assessment/Plan IMPRESSION: COVID-19 disease, Acute respiratory failure, COPD, Diastolic CHF, Mitral valve regurgitation, Anemia, Parkinson disease, schizoaffective disorder, Dementia, Obstructive sleep apnea, Hypothyroidism. 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 RECOMMENDATION: Continue dexamethasone Continue Remdesivir X 4 more days Continue Levaquin & Vancomycin Subjective ROS Limited/Unobtainable: Yes Constitutional: Denies: fever Neurologic: Reports: other - on restraint Allergies: Coded Allergies: LITHIUM (Verified Allergy, Unknown, 02/07/19) Objective Last 24 Hour Vital Signs Date Time Temp Pulse Resp B/P (MAP) Pulse Ox O2 Delivery O2 Flow Rate FiO2 05/19/20 10:00 64 14 94/31 (52) 94 05/19/20 09:47 63 14 94/31 94 05/19/20 09:17 67 14 124/40 94 05/19/20 09:00 78 18 124/40 (68) 96 05/19/20 08:00 Mechanical Ventilator 05/19/20 08:00 99.0 76 16 120/38 (65) 98 05/19/20 08:00 50 05/19/20 07:49 74 05/19/20 07:20 65 13 40 05/19/20 07:00 77 20 119/37 (64) 97 05/19/20 06:32 75 20 05/19/20 06:00 74 15 116/42 (66) 96 05/19/20 05:00 83 17 127/45 (72) 97 05/19/20 04:42 75 15 116/42 96 05/19/20 04:12 74 16 109/43 99 05/19/20 04:00 98.2 75 15 103/37 (59) 94 05/19/20 04:00 50 05/19/20 04:00 Mechanical Ventilator 05/19/20 03:17 84 05/19/20 03:14 74 16 50 05/19/20 03:00 77 15 109/43 (65) 99 05/19/20 02:00 75 14 108/38 (61) 96 05/19/20 01:00 78 20 118/46 (70) 98 05/19/20 00:00 98.9 91 19 133/53 (79) 99 05/19/20 00:00 50 05/19/20 00:00 Mechanical Ventilator 05/18/20 23:52 86 05/18/20 23:32 73 19 98/40 100 05/18/20 23:02 77 20 110/55 100 05/18/20 23:00 76 14 104/40 (61) 97 05/18/20 22:36 90 18 50 05/18/20 22:00 78 14 108/39 (62) 99 05/18/20 21:30 73 15 98/40 (59) 97 05/18/20 21:00 75 14 110/40 (63) 97 05/18/20 20:30 73 13 95/37 (56) 95 05/18/20 20:00 50 05/18/20 20:00 98.7 76 14 100/40 (60) 94 05/18/20 20:00 Mechanical Ventilator 05/18/20 19:18 84 16 50 05/18/20 19:08 87 16 104/42 96 05/18/20 19:03 86 05/18/20 19:00 87 16 104/42 (62) 96 05/18/20 18:38 99 23 123/53 98 05/18/20 18:00 101 20 126/48 (74) 98 05/18/20 17:00 99.0 98 22 95/40 (58) 97 05/18/20 16:00 Mechanical Ventilator 05/18/20 16:00 84 18 101/48 (65) 97 05/18/20 16:00 50 05/18/20 15:20 84 05/18/20 15:06 85 22 50 05/18/20 15:00 83 22 118/46 (70) 98 05/18/20 14:00 72 14 93/34 (53) 96 05/18/20 13:00 84 20 111/41 (64) 97 05/18/20 12:00 Mechanical Ventilator 05/18/20 12:00 50 05/18/20 12:00 98.2 71 15 110/41 (64) 95 05/18/20 11:18 74 05/18/20 11:00 77 18 120/38 (65) 94 Height (Feet): 5 Height (Inches): 3.00 Weight (Pounds): 170 HEENT: other - orally intubated Respiratory/Chest: other - on ventilator Cardiovascular: normal rate Abdomen: soft, non tender Extremities: no edema Laboratory Tests Test 05/19/20 04:00 White Blood Count 7.0 K/UL (4.8-10.8) Red Blood Count 2.51 M/UL (4.20-5.40) L Hemoglobin 8.4 G/DL (12.0-16.0) L Hematocrit 23.7 % (37.0-47.0) L Mean Corpuscular Volume 94 FL (80-99) Mean Corpuscular Hemoglobin 33.6 PG (27.0-31.0) H Mean Corpuscular Hemoglobin Concent 35.6 G/DL (32.0-36.0) Red Cell Distribution Width 13.7 % (11.6-14.8) Platelet Count 219 K/UL (150-450) Mean Platelet Volume 6.8 FL (6.5-10.1) Neutrophils (%) (Auto) 81.4 % (45.0-75.0) H Lymphocytes (%) (Auto) 15.8 % (20.0-45.0) L Monocytes (%) (Auto) 2.5 % (1.0-10.0) Eosinophils (%) (Auto) 0.1 % (0.0-3.0) Basophils (%) (Auto) 0.2 % (0.0-2.0) Sodium Level 150 MMOL/L (136-145) H Potassium Level 4.0 MMOL/L (3.5-5.1) Chloride Level 115 MMOL/L (98-107) H Carbon Dioxide Level 32 MMOL/L (21-32) Anion Gap 3 mmol/L (5-15) L Blood Urea Nitrogen 34 mg/dL (7-18) H Creatinine 1.2 MG/DL (0.55-1.30) Estimat Glomerular Filtration Rate 43.3 mL/min (>60) Glucose Level 152 MG/DL (74-106) H Calcium Level 7.9 MG/DL (8.5-10.1) L Phosphorus Level 2.0 MG/DL (2.5-4.9) L Magnesium Level 2.5 MG/DL (1.8-2.4) H Total Bilirubin 0.5 MG/DL (0.2-1.0) Direct Bilirubin 0.1 MG/DL (0.0-0.3) Aspartate Amino Transf (AST/SGOT) 16 U/L (15-37) Alanine Aminotransferase (ALT/SGPT) 26 U/L (12-78) Alkaline Phosphatase 45 U/L (46-116) L Total Protein 6.5 G/DL (6.4-8.2) Albumin 2.6 G/DL (3.4-5.0) L Globulin 3.9 g/dL Albumin/Globulin Ratio 0.7 (1.0-2.7) L Current Medications Medications (Trade) Dose Ordered Sig/Angie Route PRN Reason Start Time Stop Time Status Last Admin Dose Admin Acetaminophen (Tylenol) 650 mg Q6H PRN NG Fever >100.5 05/14/20 21:00 06/13/20 20:59 05/14/20 21:10 Acetaminophen (Tylenol) 650 mg Q6H PRN NG Mild Pain (Pain Scale 1-3) 05/14/20 21:00 06/13/20 20:59 05/17/20 11:06 Chlorhexidine Gluconate (Ruba-Hex 2%) 1 applic DAILY@1999 TOPIC 05/15/20 20:00 08/13/20 19:59 05/18/20 21:02 Clonidine HCl (Catapres Tab) 0.1 mg Q4H PRN ORAL sbp>170 05/11/20 17:15 08/09/20 17:14 Dexamethasone Sodium Phosphate (Decadron 10mg/ ml Inj) 6 mg DAILY IV 05/12/20 15:45 05/21/20 15:44 05/19/20 09:17 Haloperidol Lactate (Haldol) 5 mg Q6H PRN IM Agitation 05/13/20 20:45 06/27/20 20:44 05/17/20 09:45 Levofloxacin 150 ml @ 100 mls/hr Q48H IVPB 05/20/20 12:00 05/23/20 11:59 Levothyroxine Sodium (Synthroid) 50 mcg DAILY@0630 ORAL 05/14/20 06:30 06/13/20 06:29 05/19/20 05:44 Lorazepam (Ativan 2mg/ml 1ml) 1 mg Q4H PRN IV For Anxiety 05/17/20 12:00 05/24/20 11:59 05/19/20 09:17 Remdesivir 100 mg/ Sodium Chloride 250 ml @ 250 mls/hr Q24H IV 05/19/20 21:00 05/22/20 21:59 Vancomycin HCl (Vanco pharmacy to dose) 1 ea DAILY PRN MISC Per rx protocol 05/15/20 08:45 06/14/20 08:44 Vancomycin HCl 1.25 gm/Dextrose 275 ml @ 183.708 mls/hr Q24H IVPB 05/16/20 11:00 05/21/20 10:59 05/18/20 11:30 Lei Chan MD May 19, 2020 10:55
[2020-05-19] MEDS: Vancomycin 1.25 GM in D5W 275 ML IVPB SCH (11:32)
--- NOTE | 2020-05-19 17:38 | Pulmonology Progress Note ---
Subjective ROS Limited/Unobtainable: Yes Interval Events: Remains intubated; unable to wean yesterday Constitutional: Denies: fever HEENT: Repors: no symptoms Respiratory: Reports: no symptoms Cardiovascular: Reports: no symptoms Gastrointestinal/Abdominal: Reports: no symptoms Genitourinary: Reports: no symptoms Allergies: Coded Allergies: LITHIUM (Verified Allergy, Unknown, 02/07/19) Objective Last 24 Hour Vital Signs Date Time Temp Pulse Resp B/P (MAP) Pulse Ox O2 Delivery O2 Flow Rate FiO2 05/19/20 16:00 79 22 111/45 (67) 92 05/19/20 16:00 84 05/19/20 16:00 50 05/19/20 15:15 84 22 40 05/19/20 15:00 78 17 99/37 (57) 92 05/19/20 14:00 75 17 128/40 (69) 94 05/19/20 13:00 64 15 98/33 (54) 94 05/19/20 12:00 98.6 66 14 116/36 (62) 93 05/19/20 12:00 50 05/19/20 12:00 Mechanical Ventilator 05/19/20 11:29 64 05/19/20 11:00 72 19 122/39 (66) 95 05/19/20 10:45 62 14 40 05/19/20 10:00 64 14 94/31 (52) 94 05/19/20 09:47 63 14 94/31 94 05/19/20 09:44 97 05/19/20 09:17 67 14 124/40 94 05/19/20 09:00 78 18 124/40 (68) 96 05/19/20 08:00 Mechanical Ventilator 05/19/20 08:00 99.0 76 16 120/38 (65) 98 05/19/20 08:00 50 05/19/20 07:49 74 05/19/20 07:20 65 13 40 05/19/20 07:00 77 20 119/37 (64) 97 05/19/20 06:32 75 20 05/19/20 06:00 74 15 116/42 (66) 96 05/19/20 05:00 83 17 127/45 (72) 97 05/19/20 04:42 75 15 116/42 96 05/19/20 04:12 74 16 109/43 99 05/19/20 04:00 98.2 75 15 103/37 (59) 94 05/19/20 04:00 50 05/19/20 04:00 Mechanical Ventilator 05/19/20 03:17 84 05/19/20 03:14 74 16 50 05/19/20 03:00 77 15 109/43 (65) 99 05/19/20 02:00 75 14 108/38 (61) 96 05/19/20 01:00 78 20 118/46 (70) 98 05/19/20 00:00 98.9 91 19 133/53 (79) 99 05/19/20 00:00 50 05/19/20 00:00 Mechanical Ventilator 05/18/20 23:52 86 05/18/20 23:32 73 19 98/40 100 05/18/20 23:02 77 20 110/55 100 05/18/20 23:00 76 14 104/40 (61) 97 05/18/20 22:36 90 18 50 05/18/20 22:00 78 14 108/39 (62) 99 05/18/20 21:30 73 15 98/40 (59) 97 05/18/20 21:00 75 14 110/40 (63) 97 05/18/20 20:30 73 13 95/37 (56) 95 05/18/20 20:00 50 05/18/20 20:00 98.7 76 14 100/40 (60) 94 05/18/20 20:00 Mechanical Ventilator 05/18/20 19:18 84 16 50 05/18/20 19:08 87 16 104/42 96 05/18/20 19:03 86 05/18/20 19:00 87 16 104/42 (62) 96 05/18/20 18:38 99 23 123/53 98 05/18/20 18:00 101 20 126/48 (74) 98 Intake and Output 05/18/20 05/19/20 18:59 06:59 Intake Total 1696.6667 ml 700 ml Output Total 700 ml 740 ml Balance 996.6667 ml -40 ml Free Water 150 ml 100 ml IV Total 956.6667 ml Tube Feeding 590 ml 600 ml Output Urine Total 700 ml 740 ml Objective 05/19/2020 Pt in ICU; full code General Appearance: no acute distress HEENT: normocephalic Respiratory: no respiratory distress, decreased breath sounds, other - On ventilator Cardiovascular: normal rate Abdomen: soft, non tender, other - obese, NG tube Extremities: other - b/l 2+ pitting edema Neurologic: disoriented Laboratory Tests 05/19/20 04:00: White Blood Count 7.0, Red Blood Count 2.51L, Hemoglobin 8.4L, Hematocrit 23.7L, Mean Corpuscular Volume 94, Mean Corpuscular Hemoglobin 33.6H, Mean Corpuscular Hemoglobin Concent 35.6, Red Cell Distribution Width 13.7, Platelet Count 219, Mean Platelet Volume 6.8, Neutrophils (%) (Auto) 81.4H, Lymphocytes (%) (Auto) 15.8L, Monocytes (%) (Auto) 2.5, Eosinophils (%) (Auto) 0.1, Basophils (%) (Auto) 0.2, Sodium Level 150H, Potassium Level 4.0, Chloride Level 115H, Carbon Dioxide Level 32, Anion Gap 3L, Blood Urea Nitrogen 34H, Creatinine 1.2, Estimat Glomerular Filtration Rate 43.3, Glucose Level 152H, Calcium Level 7.9L, Phosphorus Level 2.0L, Magnesium Level 2.5H, Total Bilirubin 0.5, Direct Bilirubin 0.1, Aspartate Amino Transf (AST/SGOT) 16, Alanine Aminotransferase (ALT/SGPT) 26, Alkaline Phosphatase 45L, Total Protein 6.5, Albumin 2.6L, Globulin 3.9, Albumin/Globulin Ratio 0.7L Current Medications Medications (Trade) Dose Ordered Sig/Angie Route PRN Reason Start Time Stop Time Status Last Admin Dose Admin Acetaminophen (Tylenol) 650 mg Q6H PRN NG Fever >100.5 05/14/20 21:00 06/13/20 20:59 05/14/20 21:10 Acetaminophen (Tylenol) 650 mg Q6H PRN NG Mild Pain (Pain Scale 1-3) 05/14/20 21:00 06/13/20 20:59 05/17/20 11:06 Chlorhexidine Gluconate (Ruba-Hex 2%) 1 applic DAILY@2000 TOPIC 05/15/20 20:00 08/13/20 19:59 05/18/20 21:02 Clonidine HCl (Catapres Tab) 0.1 mg Q4H PRN ORAL sbp>170 05/11/20 17:15 08/09/20 17:14 Dexamethasone Sodium Phosphate (Decadron 10mg/ ml Inj) 6 mg DAILY IV 05/12/20 15:45 05/21/20 15:44 05/19/20 09:17 Haloperidol Lactate (Haldol) 5 mg Q6H PRN IM Agitation 05/13/20 20:45 06/27/20 20:44 05/17/20 09:45 Levofloxacin 150 ml @ 100 mls/hr Q48H IVPB 05/20/20 12:00 05/23/20 11:59 Levothyroxine Sodium (Synthroid) 50 mcg DAILY@0630 ORAL 05/14/20 06:30 06/13/20 06:29 05/19/20 05:44 Lorazepam (Ativan 2mg/ml 1ml) 1 mg Q4H PRN IV For Anxiety 05/17/20 12:00 05/24/20 11:59 05/19/20 09:17 Remdesivir 100 mg/ Sodium Chloride 250 ml @ 250 mls/hr Q24H IV 05/19/20 21:00 05/22/20 21:59 Vancomycin HCl (Vanco pharmacy to dose) 1 ea DAILY PRN MISC Per rx protocol 05/15/20 08:45 06/14/20 08:44 Vancomycin HCl 1.25 gm/Dextrose 275 ml @ 183.708 mls/hr Q24H IVPB 05/16/20 11:00 05/21/20 10:59 05/19/20 11:32 Assessment/Plan Assessment/Plan 1. Bilateral COVID-19 multilobar pneumonia. - s/p ETT - Afebrile - Continue Azithromycin, Ceftriaxone, dexamethasone - On remdesivir - defer to ID 2. Hx of COPD. 3. Schizophrenia/psychosis - On dopamine, haloperidol 4. Hypoxia. - Weaning failed again today; attempt again tomorrow - Cont vent; AC mode 5. Anemia - hgb 9.6 -> 7.9 -> 8.4 6. Azotemia/renal failure - UA: Positive leuk esterase, protein, RBC, WBC (05/11/2020) - BUN 32 -> 39 -> 34 DVT ppx The care for this patient was discussed with my supervising physician The history of Alcira Gonzalez has been reviewed and management options for her have been examined and discussed by Sincere Myers. I have personally examined and interviewed the patient. Time spent for this case was 31 minutes Trae Avilez May 19, 2020 17:38 Sincere Myers MD May 19, 2020 17:42
[2020-05-19] MEDS: Dyna-Hex 2% Top Sol 2oz TOPIC SCH (20:39)
[2020-05-19] MEDS: Maintenance Dose:Remdesivir 100mg/NS 230ml x 4 Doses IV SCH ×2 (21:11)
--- NOTE | 2020-05-19 21:25 | General Progress Note ---
Subjective ROS Limited/Unobtainable: Yes Allergies: Coded Allergies: LITHIUM (Verified Allergy, Unknown, 02/07/19) Objective Last 24 Hour Vital Signs Date Time Temp Pulse Resp B/P (MAP) Pulse Ox O2 Delivery O2 Flow Rate FiO2 05/19/20 20:00 98.5 71 16 98/34 (55) 95 05/19/20 20:00 50 05/19/20 20:00 Mechanical Ventilator 05/19/20 19:04 87 17 40 05/19/20 19:00 90 24 144/68 (93) 99 05/19/20 18:00 73 15 109/36 (60) 94 05/19/20 17:00 98.9 81 18 125/41 (69) 96 05/19/20 16:00 79 22 111/45 (67) 92 05/19/20 16:00 84 05/19/20 16:00 Mechanical Ventilator 05/19/20 16:00 50 05/19/20 15:15 84 22 40 05/19/20 15:00 78 17 99/37 (57) 92 05/19/20 14:00 75 17 128/40 (69) 94 05/19/20 13:00 64 15 98/33 (54) 94 05/19/20 12:00 98.6 66 14 116/36 (62) 93 05/19/20 12:00 50 05/19/20 12:00 Mechanical Ventilator 05/19/20 11:29 64 05/19/20 11:00 72 19 122/39 (66) 95 05/19/20 10:45 62 14 40 05/19/20 10:00 64 14 94/31 (52) 94 05/19/20 09:47 63 14 94/31 94 05/19/20 09:44 97 05/19/20 09:17 67 14 124/40 94 05/19/20 09:00 78 18 124/40 (68) 96 05/19/20 08:00 Mechanical Ventilator 05/19/20 08:00 99.0 76 16 120/38 (65) 98 05/19/20 08:00 50 05/19/20 07:49 74 05/19/20 07:20 65 13 40 05/19/20 07:00 77 20 119/37 (64) 97 05/19/20 06:32 75 20 05/19/20 06:00 74 15 116/42 (66) 96 05/19/20 05:00 83 17 127/45 (72) 97 05/19/20 04:42 75 15 116/42 96 05/19/20 04:12 74 16 109/43 99 05/19/20 04:00 98.2 75 15 103/37 (59) 94 05/19/20 04:00 50 05/19/20 04:00 Mechanical Ventilator 05/19/20 03:17 84 05/19/20 03:14 74 16 50 05/19/20 03:00 77 15 109/43 (65) 99 05/19/20 02:00 75 14 108/38 (61) 96 05/19/20 01:00 78 20 118/46 (70) 98 05/19/20 00:00 98.9 91 19 133/53 (79) 99 05/19/20 00:00 50 05/19/20 00:00 Mechanical Ventilator 05/18/20 23:52 86 05/18/20 23:32 73 19 98/40 100 05/18/20 23:02 77 20 110/55 100 05/18/20 23:00 76 14 104/40 (61) 97 05/18/20 22:36 90 18 50 05/18/20 22:00 78 14 108/39 (62) 99 05/18/20 21:30 73 15 98/40 (59) 97 Intake and Output 05/18/20 05/19/20 19:00 07:00 Intake Total 1706.6667 ml 650 ml Output Total 695 ml 775 ml Balance 1011.6667 ml -125 ml Free Water 150 ml 100 ml IV Total 956.6667 ml Tube Feeding 600 ml 550 ml Output Urine Total 695 ml 775 ml Laboratory Tests 05/19/20 04:00: White Blood Count 7.0, Red Blood Count 2.51L, Hemoglobin 8.4L, Hematocrit 23.7L, Mean Corpuscular Volume 94, Mean Corpuscular Hemoglobin 33.6H, Mean Corpuscular Hemoglobin Concent 35.6, Red Cell Distribution Width 13.7, Platelet Count 219, Mean Platelet Volume 6.8, Neutrophils (%) (Auto) 81.4H, Lymphocytes (%) (Auto) 15.8L, Monocytes (%) (Auto) 2.5, Eosinophils (%) (Auto) 0.1, Basophils (%) (Auto) 0.2, Sodium Level 150H, Potassium Level 4.0, Chloride Level 115H, Carbon Dioxide Level 32, Anion Gap 3L, Blood Urea Nitrogen 34H, Creatinine 1.2, Estimat Glomerular Filtration Rate 43.3, Glucose Level 152H, Calcium Level 7.9L, Phosphorus Level 2.0L, Magnesium Level 2.5H, Total Bilirubin 0.5, Direct Bilirubin 0.1, Aspartate Amino Transf (AST/SGOT) 16, Alanine Aminotransferase (ALT/SGPT) 26, Alkaline Phosphatase 45L, Total Protein 6.5, Albumin 2.6L, Globulin 3.9, Albumin/Globulin Ratio 0.7L Height (Feet): 5 Height (Inches): 3.00 Weight (Pounds): 170 Assessment/Plan Problem List: (1) Anemia ICD Codes: D64.9 - Anemia, unspecified SNOMED: 155960894 (2) Hypercapnic respiratory failure ICD Codes: J96.92 - Respiratory failure, unspecified with hypercapnia SNOMED: 255454402 (3) COVID-19 ICD Codes: U07.1 - COVID-19 SNOMED: 218868160 (4) COPD (chronic obstructive pulmonary disease) ICD Codes: J44.9 - Chronic obstructive pulmonary disease, unspecified SNOMED: 93838648 (5) Psychosis ICD Codes: F29 - Unspecified psychosis not due to a substance or known physiological condition SNOMED: 01176178 (6) Hypoxia ICD Codes: R09.02 - Hypoxemia SNOMED: 743451655 (7) Renal failure (ARF), acute on chronic ICD Codes: N17.9 - Acute kidney failure, unspecified; N18.9 - Chronic kidney disease, unspecified SNOMED: 005564375 (8) CHF exacerbation ICD Codes: I50.9 - Heart failure, unspecified SNOMED: 823202148, [id number] Status: progressing, unchanged Assessment/Plan: off pressor trying to wean off ventilator no fever no wheezing resp failure copd exacerbation no wheezing covid positive pna septic shock Dani Snyder MD May 19, 2020 21:25
--- NOTE | 2020-05-19 23:02 | Psychiatric Progress Note ---
Psychiatry Progress Note Psychiatry Progress Note Subjective the pt is calm Medications Current Medications Medications (Trade) Dose Ordered Sig/Angie Route PRN Reason Start Time Stop Time Status Last Admin Dose Admin Acetaminophen (Tylenol) 650 mg Q6H PRN NG Fever >100.5 05/14/20 21:00 06/13/20 20:59 05/14/20 21:10 Acetaminophen (Tylenol) 650 mg Q6H PRN NG Mild Pain (Pain Scale 1-3) 05/14/20 21:00 06/13/20 20:59 05/17/20 11:06 Chlorhexidine Gluconate (Ruba-Hex 2%) 1 applic DAILY@1999 TOPIC 05/15/20 20:00 08/13/20 19:59 05/19/20 20:39 Clonidine HCl (Catapres Tab) 0.1 mg Q4H PRN ORAL sbp>170 05/11/20 17:15 08/09/20 17:14 Dexamethasone Sodium Phosphate (Decadron 10mg/ ml Inj) 6 mg DAILY IV 05/12/20 15:45 05/21/20 15:44 05/19/20 09:17 Haloperidol Lactate (Haldol) 5 mg Q6H PRN IM Agitation 05/13/20 20:45 06/27/20 20:44 05/17/20 09:45 Levofloxacin 150 ml @ 100 mls/hr Q48H IVPB 05/20/20 12:00 05/23/20 11:59 Levothyroxine Sodium (Synthroid) 50 mcg DAILY@0630 ORAL 05/14/20 06:30 06/13/20 06:29 05/19/20 05:44 Lorazepam (Ativan 2mg/ml 1ml) 1 mg Q4H PRN IV For Anxiety 05/17/20 12:00 05/24/20 11:59 05/19/20 09:17 Remdesivir 100 mg/ Sodium Chloride 250 ml @ 250 mls/hr Q24H IV 05/19/20 21:00 05/22/20 21:59 05/19/20 21:11 Vancomycin HCl (Vanco pharmacy to dose) 1 ea DAILY PRN MISC Per rx protocol 05/15/20 08:45 06/14/20 08:44 Vancomycin HCl 1.25 gm/Dextrose 275 ml @ 183.708 mls/hr Q24H IVPB 05/16/20 11:00 05/21/20 10:59 05/19/20 11:32 Neurological/Psychiatric: Reports: anxiety, depressed, emotional problems Allergies: Coded Allergies: LITHIUM (Verified Allergy, Unknown, 02/07/19) Objective Data Height (Feet): 5 Height (Inches): 3.00 Weight (Pounds): 170 General Appearance: WD/WN, confused, agitated Additional Comments: waxing and waning consciousness. Disoriented. Mood is neutral to agitation. Affect is flat. Thought process, there is paucity of thought process. Thought content, no suicidal or homicidal ideation. Cognition is impaired. Insight and judgment is impaired. Assessment/Plan [place] I: [place] I Acute toxic encephalopathy. Schizophrenia. [place] II Deferred. [place] III COVID-19. [place] IV Low. [place] V 20 PLAN: 1. Discontinue the IV Haldol. 2. Start the patient on Haldol IM. 3. The patient benefits from bilateral soft restraints. 4. Provide the patient with reality orientation. 5. Discussed with the nurse. Status: progressing, unchanged Status Narrative [place] I Acute toxic encephalopathy. Schizophrenia. [place] II Deferred. [place] III COVID-19. [place] IV Low. [place] V 20 PLAN: 1. Discontinue the IV Haldol. 2. Start the patient on Haldol IM. 3. The patient benefits from bilateral soft restraints. 4. Provide the patient with reality orientation. 5. Discussed with the nurse. Assessment/Plan: [place] I Acute toxic encephalopathy. Schizophrenia. [place] II Deferred. [place] III COVID-19. [place] IV Low. [place] V 20 PLAN: 1. Discontinue the IV Haldol. 2. Start the patient on Haldol IM. 3. The patient benefits from bilateral soft restraints. 4. Provide the patient with reality orientation. 5. Discussed with the nurse. Kiana Hernandez MD May 19, 2020 23:02
[2020-05-20] VITALS (25 sets, daily range): BP systolic 99–140; BP diastolic 32–51
[2020-05-20 05:00] LABS: BASOPHILS % (AUTO) 0.3 % (0.0-2.0); EOSINOPHILS % (AUTO) 0.4 % (0.0-3.0); HEMATOCRIT 24.9 % (37.0-47.0); HEMOGLOBIN 8.6 G/DL (12.0-16.0); LYMPHOCYTES % (AUTO) 15.2 % (20.0-45.0); MEAN CORPUSCULAR VOLUME 94 FL (80-99); MONOCYTES % (AUTO) 4.2 % (1.0-10.0); NEUTROPHILS % (AUTO) 79.9 % (45.0-75.0); PLATELET COUNT 228 K/UL (150-450); RED BLOOD COUNT 2.66 M/UL (4.20-5.40); RED CELL DISTRIBUTION WIDTH 13.8 % (11.6-14.8); WHITE BLOOD COUNT 7.8 K/UL (4.8-10.8)
[2020-05-20 05:29] LABS: ALANINE AMINOTRANSFERASE 18 U/L (12-78); ALBUMIN 2.7 G/DL (3.4-5.0); ALBUMIN/GLOBULIN RATIO 0.7 (1.0-2.7); ALKALINE PHOSPHATASE 43 U/L (46-116); ANION GAP 5 mmol/L (5-15); ASPARTATE AMINO TRANSFERASE 9 U/L (15-37); BILIRUBIN,DIRECT < 0.1 MG/DL (0.0-0.3); BILIRUBIN,TOTAL 0.5 MG/DL (0.2-1.0); BLOOD UREA NITROGEN 37 mg/dL (7-18); CALCIUM 8.5 MG/DL (8.5-10.1); CARBON DIOXIDE 30 MMOL/L (21-32); CHLORIDE 115 MMOL/L (98-107); SODIUM 150 MMOL/L (136-145)
[2020-05-20] MEDS: dexAMETHasone 10mg/ml Inj IV SCH (08:58)
[2020-05-20 10:56] LABS: PHOSPHORUS 2.2 MG/DL (2.5-4.9)
[2020-05-20] MEDS: Vancomycin 1.25 GM in D5W 275 ML IVPB SCH (10:59)
--- NOTE | 2020-05-20 12:31 | Cardiac Electrophysiology PN ---
Assessment/Plan Assessment/Plan 1. Covid PNA, respiratory failure. Intubated on the Vent with 80% Fio2 2. History of COPD. 3. Hypotension. Off Dopamine x 2 days. EF 55% 4. Bradycardia resolved and is off Dopamine 5. Schizophrenia and psychosis. YOSELYN RN Subjective Subjective Intubated in ICU in Covid isolation On 80% Fio2 and off Dopamine Objective Last 24 Hour Vital Signs Date Time Temp Pulse Resp B/P (MAP) Pulse Ox O2 Delivery O2 Flow Rate FiO2 05/20/20 12:16 60 05/20/20 11:30 80 05/20/20 10:30 95 05/20/20 10:24 79 20 40 05/20/20 10:00 87 30 136/44 (74) 93 05/20/20 09:00 80 18 140/42 (74) 93 05/20/20 09:00 79 22 40 40 05/20/20 08:00 81 05/20/20 08:00 50 05/20/20 08:00 Mechanical Ventilator 05/20/20 08:00 98.4 76 17 124/38 (66) 95 05/20/20 07:19 84 19 40 05/20/20 07:00 80 17 137/42 (73) 94 05/20/20 06:30 80 20 05/20/20 06:00 74 16 117/39 (65) 05/20/20 05:00 73 16 129/38 (68) 05/20/20 04:00 98.3 74 15 125/37 (66) 91 05/20/20 04:00 50 05/20/20 04:00 Mechanical Ventilator 05/20/20 04:00 84 05/20/20 03:21 83 13 40 05/20/20 03:00 77 17 130/38 (68) 95 05/20/20 02:00 80 19 137/44 (75) 95 05/20/20 01:00 72 16 122/40 (67) 94 05/20/20 00:00 50 05/20/20 00:00 98.2 71 14 99/33 (55) 94 05/20/20 00:00 Mechanical Ventilator 05/20/20 00:00 72 05/19/20 23:24 74 14 40 05/19/20 23:00 79 17 131/42 (71) 96 05/19/20 22:00 71 15 113/36 (61) 97 12/7/20 21:00 82 17 138/45 (76) 97 05/19/20 20:00 98.5 71 16 98/34 (55) 95 05/19/20 20:00 50 05/19/20 20:00 Mechanical Ventilator 05/19/20 20:00 86 05/19/20 19:04 87 17 40 05/19/20 19:00 90 24 144/68 (93) 99 05/19/20 18:00 73 15 109/36 (60) 94 05/19/20 17:00 98.9 81 18 125/41 (69) 96 05/19/20 16:00 79 22 111/45 (67) 92 05/19/20 16:00 84 05/19/20 16:00 Mechanical Ventilator 05/19/20 16:00 50 05/19/20 15:15 84 22 40 05/19/20 15:00 78 17 99/37 (57) 92 05/19/20 14:00 75 17 128/40 (69) 94 05/19/20 13:00 64 15 98/33 (54) 94 Intake and Output 05/19/20 05/20/20 19:00 07:00 Intake Total 625.000 ml 850 ml Output Total 805 ml 720 ml Balance -180.000 ml 130 ml IV Total 275.000 ml 250 ml Tube Feeding 350 ml 600 ml Output Urine Total 805 ml 720 ml Laboratory Tests Test 05/20/20 04:00 White Blood Count 7.8 K/UL (4.8-10.8) Red Blood Count 2.66 M/UL (4.20-5.40) L Hemoglobin 8.6 G/DL (12.0-16.0) L Hematocrit 24.9 % (37.0-47.0) L Mean Corpuscular Volume 94 FL (80-99) Mean Corpuscular Hemoglobin 32.3 PG (27.0-31.0) H Mean Corpuscular Hemoglobin Concent 34.5 G/DL (32.0-36.0) Red Cell Distribution Width 13.8 % (11.6-14.8) Platelet Count 228 K/UL (150-450) Mean Platelet Volume 6.6 FL (6.5-10.1) Neutrophils (%) (Auto) 79.9 % (45.0-75.0) H Lymphocytes (%) (Auto) 15.2 % (20.0-45.0) L Monocytes (%) (Auto) 4.2 % (1.0-10.0) Eosinophils (%) (Auto) 0.4 % (0.0-3.0) Basophils (%) (Auto) 0.3 % (0.0-2.0) Sodium Level 150 MMOL/L (136-145) H Potassium Level 4.0 MMOL/L (3.5-5.1) Chloride Level 115 MMOL/L (98-107) H Carbon Dioxide Level 30 MMOL/L (21-32) Anion Gap 5 mmol/L (5-15) Blood Urea Nitrogen 37 mg/dL (7-18) H Creatinine 1.0 MG/DL (0.55-1.30) Estimat Glomerular Filtration Rate 53.3 mL/min (>60) Glucose Level 135 MG/DL (74-106) H Calcium Level 8.5 MG/DL (8.5-10.1) Phosphorus Level 2.2 MG/DL (2.5-4.9) L Magnesium Level 2.6 MG/DL (1.8-2.4) H Total Bilirubin 0.5 MG/DL (0.2-1.0) Direct Bilirubin < 0.1 MG/DL (0.0-0.3) Aspartate Amino Transf (AST/SGOT) 9 U/L (15-37) L Alanine Aminotransferase (ALT/SGPT) 18 U/L (12-78) Alkaline Phosphatase 43 U/L (46-116) L Total Protein 6.6 G/DL (6.4-8.2) Albumin 2.7 G/DL (3.4-5.0) L Globulin 3.9 g/dL Albumin/Globulin Ratio 0.7 (1.0-2.7) L Objective HEAD AND NECK: Positive JVD.Orally intubated LUNGS: Decreased breath sounds. CARDIOVASCULAR: Regular S1 and S2 with no gallop. ABDOMEN: Obese. EXTREMITIES: Bilateral 2+ pitting edema. Cameron Davies MD May 20, 2020 12:31
--- NOTE | 2020-05-20 13:35 | Infectious Diseases Prog Note ---
Assessment/Plan Assessment/Plan IMPRESSION: COVID-19 disease, Acute respiratory failure, COPD, Diastolic CHF, Mitral valve regurgitation, Anemia, Parkinson disease, schizoaffective disorder, Dementia, Obstructive sleep apnea, Hypothyroidism. 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 RECOMMENDATION: Continue dexamethasone Continue Remdesivir X 3 more days Continue Levaquin & Vancomycin Subjective ROS Limited/Unobtainable: Yes Constitutional: Denies: fever Respiratory: Reports: other - failed weaning yesterday Neurologic: Reports: confusion, other - on restraint Allergies: Coded Allergies: LITHIUM (Verified Allergy, Unknown, 02/07/19) Objective Last 24 Hour Vital Signs Date Time Temp Pulse Resp B/P (MAP) Pulse Ox O2 Delivery O2 Flow Rate FiO2 05/20/20 13:00 75 15 116/42 (66) 98 05/20/20 12:16 60 05/20/20 12:00 Mechanical Ventilator 05/20/20 12:00 98.9 75 16 106/36 (59) 100 05/20/20 12:00 74 05/20/20 12:00 50 05/20/20 11:30 80 05/20/20 11:00 83 19 138/45 (76) 91 05/20/20 10:30 95 05/20/20 10:24 79 20 40 05/20/20 10:00 87 30 136/44 (74) 93 05/20/20 09:00 80 18 140/42 (74) 93 05/20/20 09:00 79 22 40 40 05/20/20 08:00 81 05/20/20 08:00 50 05/20/20 08:00 Mechanical Ventilator 05/20/20 08:00 98.4 76 17 124/38 (66) 95 05/20/20 07:19 84 19 40 05/20/20 07:00 80 17 137/42 (73) 94 05/20/20 06:30 80 20 05/20/20 06:00 74 16 117/39 (65) 05/20/20 05:00 73 16 129/38 (68) 05/20/20 04:00 98.3 74 15 125/37 (66) 91 05/20/20 04:00 50 05/20/20 04:00 Mechanical Ventilator 05/20/20 04:00 84 05/20/20 03:21 83 13 40 05/20/20 03:00 77 17 130/38 (68) 95 05/20/20 02:00 80 19 137/44 (75) 95 05/20/20 01:00 72 16 122/40 (67) 94 05/20/20 00:00 50 05/20/20 00:00 98.2 71 14 99/33 (55) 94 05/20/20 00:00 Mechanical Ventilator 05/20/20 00:00 72 05/19/20 23:24 74 14 40 05/19/20 23:00 79 17 131/42 (71) 96 05/19/20 22:00 71 15 113/36 (61) 97 05/19/20 21:00 82 17 138/45 (76) 97 05/19/20 20:00 98.5 71 16 98/34 (55) 95 05/19/20 20:00 50 05/19/20 20:00 Mechanical Ventilator 05/19/20 20:00 86 05/19/20 19:04 87 17 40 05/19/20 19:00 90 24 144/68 (93) 99 05/19/20 18:00 73 15 109/36 (60) 94 05/19/20 17:00 98.9 81 18 125/41 (69) 96 05/19/20 16:00 79 22 111/45 (67) 92 05/19/20 16:00 84 05/19/20 16:00 Mechanical Ventilator 05/19/20 16:00 50 05/19/20 15:15 84 22 40 05/19/20 15:00 78 17 99/37 (57) 92 05/19/20 14:00 75 17 128/40 (69) 94 Height (Feet): 5 Height (Inches): 3.00 Weight (Pounds): 170 HEENT: other - orally intubated Respiratory/Chest: other - on ventilator Cardiovascular: normal rate Abdomen: soft, non tender Extremities: no edema Neurologic/Psychiatric: alert, responsive Laboratory Tests Test 05/20/20 04:00 White Blood Count 7.8 K/UL (4.8-10.8) Red Blood Count 2.66 M/UL (4.20-5.40) L Hemoglobin 8.6 G/DL (12.0-16.0) L Hematocrit 24.9 % (37.0-47.0) L Mean Corpuscular Volume 94 FL (80-99) Mean Corpuscular Hemoglobin 32.3 PG (27.0-31.0) H Mean Corpuscular Hemoglobin Concent 34.5 G/DL (32.0-36.0) Red Cell Distribution Width 13.8 % (11.6-14.8) Platelet Count 228 K/UL (150-450) Mean Platelet Volume 6.6 FL (6.5-10.1) Neutrophils (%) (Auto) 79.9 % (45.0-75.0) H Lymphocytes (%) (Auto) 15.2 % (20.0-45.0) L Monocytes (%) (Auto) 4.2 % (1.0-10.0) Eosinophils (%) (Auto) 0.4 % (0.0-3.0) Basophils (%) (Auto) 0.3 % (0.0-2.0) Sodium Level 150 MMOL/L (136-145) H Potassium Level 4.0 MMOL/L (3.5-5.1) Chloride Level 115 MMOL/L (98-107) H Carbon Dioxide Level 30 MMOL/L (21-32) Anion Gap 5 mmol/L (5-15) Blood Urea Nitrogen 37 mg/dL (7-18) H Creatinine 1.0 MG/DL (0.55-1.30) Estimat Glomerular Filtration Rate 53.3 mL/min (>60) Glucose Level 135 MG/DL (74-106) H Calcium Level 8.5 MG/DL (8.5-10.1) Phosphorus Level 2.2 MG/DL (2.5-4.9) L Magnesium Level 2.6 MG/DL (1.8-2.4) H Total Bilirubin 0.5 MG/DL (0.2-1.0) Direct Bilirubin < 0.1 MG/DL (0.0-0.3) Aspartate Amino Transf (AST/SGOT) 9 U/L (15-37) L Alanine Aminotransferase (ALT/SGPT) 18 U/L (12-78) Alkaline Phosphatase 43 U/L (46-116) L Total Protein 6.6 G/DL (6.4-8.2) Albumin 2.7 G/DL (3.4-5.0) L Globulin 3.9 g/dL Albumin/Globulin Ratio 0.7 (1.0-2.7) L Current Medications Medications (Trade) Dose Ordered Sig/Angie Route PRN Reason Start Time Stop Time Status Last Admin Dose Admin Acetaminophen (Tylenol) 650 mg Q6H PRN NG Fever >100.5 05/14/20 21:00 06/13/20 20:59 05/14/20 21:10 Acetaminophen (Tylenol) 650 mg Q6H PRN NG Mild Pain (Pain Scale 1-3) 05/14/20 21:00 06/13/20 20:59 05/17/20 11:06 Chlorhexidine Gluconate (Ruba-Hex 2%) 1 applic DAILY@2000 TOPIC 05/15/20 20:00 08/13/20 19:59 05/19/20 20:39 Clonidine HCl (Catapres Tab) 0.1 mg Q4H PRN ORAL sbp>170 05/11/20 17:15 08/09/20 17:14 Dexamethasone Sodium Phosphate (Decadron 10mg/ ml Inj) 6 mg DAILY IV 05/12/20 15:45 05/21/20 15:44 05/20/20 08:58 Haloperidol Lactate (Haldol) 5 mg Q6H PRN IM Agitation 05/13/20 20:45 06/27/20 20:44 05/17/20 09:45 Levofloxacin 150 ml @ 100 mls/hr Q48H IVPB 05/20/20 12:00 05/23/20 11:59 05/20/20 11:00 Levothyroxine Sodium (Synthroid) 50 mcg DAILY@0630 ORAL 05/14/20 06:30 06/13/20 06:29 05/20/20 05:38 Lorazepam (Ativan 2mg/ml 1ml) 1 mg Q4H PRN IV For Anxiety 05/17/20 12:00 05/24/20 11:59 05/19/20 09:17 Remdesivir 100 mg/ Sodium Chloride 250 ml @ 250 mls/hr Q24H IV 05/19/20 21:00 05/22/20 21:59 05/19/20 21:11 Vancomycin HCl 250 ml @ 167.007 mls/hr Q24H IVPB 05/21/20 11:00 05/26/20 10:59 Vancomycin HCl ([facility] pharmacy to dose) 1 ea DAILY PRN MISC Per rx protocol 05/15/20 08:45 06/14/20 08:44 Lei Chan MD May 20, 2020 13:35
--- NOTE | 2020-05-20 15:54 | Nephrology Progress Note ---
Assessment/Plan Problem List: (1) Renal failure (ARF), acute on chronic (2) Hypercapnic respiratory failure (3) CHF exacerbation Assessment Azotemia/renal failure Acute respiratory failure most likely secondary to CHF, on mechanical ventilation History of COPD Hypertension Hyperlipemia Schizophrenia/psychosis Plan May 20: Remains intubated. Abnormal electrolyte noted on today's lab results and addressed. Continue per consultants. May 19: Patient remains intubated. Labs reviewed. Abnormal electrolytes addressed. Continue per current management. May 18: Patient seen in ICU. Remains intubated. Weaning is being tried. Discussed with RN. Labs reviewed. Abnormal electrolyte addressed. Continue per consultants. May 17: Labs reviewed. Remains intubated. Stable from renal standpoint of view. Continue weaning. Discussed with RN. May 16: Labs reviewed. Remains intubated. Remains full code. Stable from renal standpoint of view. Abnormal electrolytes addressed. May 15: Labs reviewed. Renal parameters stable. Discussed with RN. Patient remains intubated on ventilator and full code. Continue per consultants. May 14: Labs reviewed. Discussed with RN. Abnormal electrolyte addressed. Continue per current management. Patient seen in ICU. Discussed with RN. Today's labs pending. Patient remains on 6 mics of dopamine. Pulmonary support Monitor intake and output Monitor electrolytes Continue per consultants Per orders Subjective ROS Limited/Unobtainable: Yes Objective Objective Last 24 Hour Vital Signs Date Time Temp Pulse Resp B/P (MAP) Pulse Ox O2 Delivery O2 Flow Rate FiO2 05/20/20 15:00 71 14 124/47 (72) 99 05/20/20 15:00 78 22 40 05/20/20 14:00 78 16 116/42 (66) 97 05/20/20 13:30 82 21 130/42 (71) 99 05/20/20 13:00 75 15 116/42 (66) 98 05/20/20 12:16 60 05/20/20 12:00 Mechanical Ventilator 05/20/20 12:00 98.9 75 16 106/36 (59) 100 05/20/20 12:00 74 05/20/20 12:00 50 05/20/20 11:30 80 05/20/20 11:00 83 19 138/45 (76) 91 05/20/20 10:30 95 05/20/20 10:24 79 20 40 05/20/20 10:00 87 30 136/44 (74) 93 05/20/20 09:00 80 18 140/42 (74) 93 05/20/20 09:00 79 22 40 40 05/20/20 08:00 81 05/20/20 08:00 50 05/20/20 08:00 Mechanical Ventilator 05/20/20 08:00 98.4 76 17 124/38 (66) 95 05/20/20 07:19 84 19 40 05/20/20 07:00 80 17 137/42 (73) 94 05/20/20 06:30 80 20 05/20/20 06:00 74 16 117/39 (65) 05/20/20 05:00 73 16 129/38 (68) 05/20/20 04:00 98.3 74 15 125/37 (66) 91 05/20/20 04:00 50 05/20/20 04:00 Mechanical Ventilator 05/20/20 04:00 84 05/20/20 03:21 83 13 40 05/20/20 03:00 77 17 130/38 (68) 95 05/20/20 02:00 80 19 137/44 (75) 95 05/20/20 01:00 72 16 122/40 (67) 94 05/20/20 00:00 50 05/20/20 00:00 98.2 71 14 99/33 (55) 94 05/20/20 00:00 Mechanical Ventilator 05/20/20 00:00 72 05/19/20 23:24 74 14 40 05/19/20 23:00 79 17 131/42 (71) 96 05/19/20 22:00 71 15 113/36 (61) 97 05/19/20 21:00 82 17 138/45 (76) 97 05/19/20 20:00 98.5 71 16 98/34 (55) 95 05/19/20 20:00 50 05/19/20 20:00 Mechanical Ventilator 05/19/20 20:00 86 05/19/20 19:04 87 17 40 05/19/20 19:00 90 24 144/68 (93) 99 05/19/20 18:00 73 15 109/36 (60) 94 05/19/20 17:00 98.9 81 18 125/41 (69) 96 12/7/20 16:00 79 22 111/45 (67) 92 05/19/20 16:00 84 05/19/20 16:00 Mechanical Ventilator 05/19/20 16:00 50 Intake and Output 05/19/20 05/20/20 19:00 07:00 Intake Total 625.000 ml 850 ml Output Total 805 ml 720 ml Balance -180.000 ml 130 ml IV Total 275.000 ml 250 ml Tube Feeding 350 ml 600 ml Output Urine Total 805 ml 720 ml Laboratory Tests 05/20/20 04:00: White Blood Count 7.8, Red Blood Count 2.66L, Hemoglobin 8.6L, Hematocrit 24.9L, Mean Corpuscular Volume 94, Mean Corpuscular Hemoglobin 32.3H, Mean Corpuscular Hemoglobin Concent 34.5, Red Cell Distribution Width 13.8, Platelet Count 228, Mean Platelet Volume 6.6, Neutrophils (%) (Auto) 79.9H, Lymphocytes (%) (Auto) 15.2L, Monocytes (%) (Auto) 4.2, Eosinophils (%) (Auto) 0.4, Basophils (%) (Auto) 0.3, Sodium Level 150H, Potassium Level 4.0, Chloride Level 115H, Carbon Dioxide Level 30, Anion Gap 5, Blood Urea Nitrogen 37H, Creatinine 1.0, Estimat Glomerular Filtration Rate 53.3, Glucose Level 135H, Calcium Level 8.5, Phosphorus Level 2.2L, Magnesium Level 2.6H, Total Bilirubin 0.5, Direct Bilirubin < 0.1, Aspartate Amino Transf (AST/SGOT) 9L, Alanine Aminotransferase (ALT/SGPT) 18, Alkaline Phosphatase 43L, Total Protein 6.6, Albumin 2.7L, Globulin 3.9, Albumin/Globulin Ratio 0.7L Height (Feet): 5 Height (Inches): 3.00 Weight (Pounds): 170 General Appearance: no apparent distress EENT: other - Remains intubated on ventilator Cardiovascular: normal rate Respiratory/Chest: decreased breath sounds Abdomen: distended Bryan Ochoa MD May 20, 2020 15:54
--- NOTE | 2020-05-20 16:39 | Pulmonology Progress Note ---
Subjective ROS Limited/Unobtainable: Yes Interval Events: Remains intubated; unable to wean yesterday Constitutional: Denies: fever HEENT: Repors: no symptoms Respiratory: Reports: no symptoms Cardiovascular: Reports: no symptoms Gastrointestinal/Abdominal: Reports: no symptoms Genitourinary: Reports: no symptoms Allergies: Coded Allergies: LITHIUM (Verified Allergy, Unknown, 02/07/19) Objective Last 24 Hour Vital Signs Date Time Temp Pulse Resp B/P (MAP) Pulse Ox O2 Delivery O2 Flow Rate FiO2 05/20/20 16:00 99.3 80 16 109/42 (64) 92 05/20/20 16:00 84 05/20/20 16:00 50 05/20/20 16:00 Mechanical Ventilator 05/20/20 15:00 71 14 124/47 (72) 99 05/20/20 15:00 78 22 40 05/20/20 14:00 78 16 116/42 (66) 97 05/20/20 13:30 82 21 130/42 (71) 99 05/20/20 13:00 75 15 116/42 (66) 98 05/20/20 12:16 60 05/20/20 12:00 Mechanical Ventilator 05/20/20 12:00 98.9 75 16 106/36 (59) 100 05/20/20 12:00 74 05/20/20 12:00 50 05/20/20 11:30 80 05/20/20 11:00 83 19 138/45 (76) 91 05/20/20 10:30 95 05/20/20 10:24 79 20 40 05/20/20 10:00 87 30 136/44 (74) 93 05/20/20 09:00 80 18 140/42 (74) 93 05/20/20 09:00 79 22 40 40 05/20/20 08:00 81 05/20/20 08:00 50 05/20/20 08:00 Mechanical Ventilator 05/20/20 08:00 98.4 76 17 124/38 (66) 95 05/20/20 07:19 84 19 40 05/20/20 07:00 80 17 137/42 (73) 94 05/20/20 06:30 80 20 05/20/20 06:00 74 16 117/39 (65) 05/20/20 05:00 73 16 129/38 (68) 05/20/20 04:00 98.3 74 15 125/37 (66) 91 05/20/20 04:00 50 05/20/20 04:00 Mechanical Ventilator 05/20/20 04:00 84 05/20/20 03:21 83 13 40 05/20/20 03:00 77 17 130/38 (68) 95 05/20/20 02:00 80 19 137/44 (75) 95 05/20/20 01:00 72 16 122/40 (67) 94 05/20/20 00:00 50 05/20/20 00:00 98.2 71 14 99/33 (55) 94 05/20/20 00:00 Mechanical Ventilator 05/20/20 00:00 72 05/19/20 23:24 74 14 40 05/19/20 23:00 79 17 131/42 (71) 96 05/19/20 22:00 71 15 113/36 (61) 97 05/19/20 21:00 82 17 138/45 (76) 97 05/19/20 20:00 98.5 71 16 98/34 (55) 95 05/19/20 20:00 50 05/19/20 20:00 Mechanical Ventilator 05/19/20 20:00 86 05/19/20 19:04 87 17 40 05/19/20 19:00 90 24 144/68 (93) 99 05/19/20 18:00 73 15 109/36 (60) 94 05/19/20 17:00 98.9 81 18 125/41 (69) 96 Intake and Output 05/19/20 05/20/20 19:00 07:00 Intake Total 625.000 ml 850 ml Output Total 805 ml 720 ml Balance -180.000 ml 130 ml IV Total 275.000 ml 250 ml Tube Feeding 350 ml 600 ml Output Urine Total 805 ml 720 ml General Appearance: no acute distress HEENT: normocephalic Respiratory: no respiratory distress, decreased breath sounds, other - On ventilator Cardiovascular: normal rate Abdomen: soft, non tender, other - obese, NG tube Extremities: other - b/l 2+ pitting edema Neurologic: disoriented Laboratory Tests 05/20/20 04:00: White Blood Count 7.8, Red Blood Count 2.66L, Hemoglobin 8.6L, Hematocrit 24.9L, Mean Corpuscular Volume 94, Mean Corpuscular Hemoglobin 32.3H, Mean Corpuscular Hemoglobin Concent 34.5, Red Cell Distribution Width 13.8, Platelet Count 228, Mean Platelet Volume 6.6, Neutrophils (%) (Auto) 79.9H, Lymphocytes (%) (Auto) 15.2L, Monocytes (%) (Auto) 4.2, Eosinophils (%) (Auto) 0.4, Basophils (%) (Auto) 0.3, Sodium Level 150H, Potassium Level 4.0, Chloride Level 115H, Carbon Dioxide Level 30, Anion Gap 5, Blood Urea Nitrogen 37H, Creatinine 1.0, Estimat Glomerular Filtration Rate 53.3, Glucose Level 135H, Calcium Level 8.5, Phosphor us Level 2.2L, Magnesium Level 2.6H, Total Bilirubin 0.5, Direct Bilirubin < 0.1, Aspartate Amino Transf (AST/SGOT) 9L, Alanine Aminotransferase (ALT/SGPT) 18, Alkaline Phosphatase 43L, Total Protein 6.6, Albumin 2.7L, Globulin 3.9, Albumin/Globulin Ratio 0.7L Current Medications Medications (Trade) Dose Ordered Sig/Angie Route PRN Reason Start Time Stop Time Status Last Admin Dose Admin Acetaminophen (Tylenol) 650 mg Q6H PRN NG Fever >100.5 05/14/20 21:00 06/13/20 20:59 05/14/20 21:10 Acetaminophen (Tylenol) 650 mg Q6H PRN NG Mild Pain (Pain Scale 1-3) 05/14/20 21:00 06/13/20 20:59 05/17/20 11:06 Chlorhexidine Gluconate (Ruba-Hex 2%) 1 applic DAILY@2000 TOPIC 05/15/20 20:00 08/13/20 19:59 05/19/20 20:39 Clonidine HCl (Catapres Tab) 0.1 mg Q4H PRN ORAL sbp>170 05/11/20 17:15 08/09/20 17:14 Dexamethasone Sodium Phosphate (Decadron 10mg/ ml Inj) 6 mg DAILY IV 05/12/20 15:45 05/21/20 15:44 05/20/20 08:58 Dextrose 1,000 ml @ 100 mls/hr Q10H IV 05/20/20 16:00 05/21/20 01:59 Haloperidol Lactate (Haldol) 5 mg Q6H PRN IM Agitation 05/13/20 20:45 06/27/20 20:44 05/17/20 09:45 Levofloxacin 150 ml @ 100 mls/hr Q48H IVPB 05/20/20 12:00 05/23/20 11:59 05/20/20 11:00 Levothyroxine Sodium (Synthroid) 50 mcg DAILY@0630 ORAL 05/14/20 06:30 06/13/20 06:29 05/20/20 05:38 Lorazepam (Ativan 2mg/ml 1ml) 1 mg Q4H PRN IV For Anxiety 05/17/20 12:00 05/24/20 11:59 05/19/20 09:17 Potassium Phosphate 20 mm/ Sodium Chloride 281.6667 ml @ 46.944 m... ONCE ONCE IV 05/20/20 17:00 05/20/20 22:59 Remdesivir 100 mg/ Sodium Chloride 250 ml @ 250 mls/hr Q24H IV 05/19/20 21:00 05/22/20 21:59 05/19/20 21:11 Vancomycin HCl 250 ml @ 167.007 mls/hr Q24H IVPB 05/21/20 11:00 05/26/20 10:59 Vancomycin HCl (Vanco pharmacy to dose) 1 ea DAILY PRN MISC Per rx protocol 05/15/20 08:45 06/14/20 08:44 Assessment/Plan Assessment/Plan 1. Bilateral COVID-19 multilobar pneumonia. - s/p ETT - Afebrile - Continue Azithromycin, Ceftriaxone, dexamethasone - On remdesivir - defer to ID 2. Hx of COPD. 3. Schizophrenia/psychosis - On dopamine, haloperidol 4. Hypoxia. - Weaning failed again today; attempt again tomorrow - Cont vent; AC mode - Discussed with surgery; in view of persistent failure to wean; will recommend trach 5. Anemia - hgb 9.6 -> 7.9 -> 8.4 6. Azotemia/renal failure - UA: Positive leuk esterase, protein, RBC, WBC (05/11/2020) - BUN 32 -> 39 -> 34 DVT ppx Time spent for this case was 31 minutes Sincere Myers MD May 20, 2020 16:39
[2020-05-20] MEDS ORDERED: Potassium Phosphate 20 MM in NS 275 ML IV ONE (17:00)
[2020-05-20] MEDS: Dyna-Hex 2% Top Sol 2oz TOPIC SCH (20:01)
[2020-05-20] MEDS: LORazepam Inj 2mg/ml 1ml IV PRN (20:26)
--- NOTE | 2020-05-20 20:48 | General Progress Note ---
Subjective ROS Limited/Unobtainable: Yes Allergies: Coded Allergies: LITHIUM (Verified Allergy, Unknown, 02/07/19) Objective Last 24 Hour Vital Signs Date Time Temp Pulse Resp B/P (MAP) Pulse Ox O2 Delivery O2 Flow Rate FiO2 05/20/20 20:26 82 23 118/51 98 05/20/20 20:00 86 18 118/51 (73) 97 05/20/20 20:00 Mechanical Ventilator 05/20/20 20:00 50 05/20/20 19:00 88 18 125/44 (71) 97 05/20/20 18:43 85 20 40 05/20/20 18:00 76 16 119/41 (67) 94 05/20/20 17:00 78 16 115/43 (67) 94 05/20/20 16:00 99.3 80 16 109/42 (64) 92 05/20/20 16:00 84 05/20/20 16:00 50 05/20/20 16:00 Mechanical Ventilator 05/20/20 15:00 71 14 124/47 (72) 99 05/20/20 15:00 78 22 40 05/20/20 14:00 78 16 116/42 (66) 97 05/20/20 13:30 82 21 130/42 (71) 99 05/20/20 13:00 75 15 116/42 (66) 98 05/20/20 12:16 60 05/20/20 12:00 Mechanical Ventilator 05/20/20 12:00 98.9 75 16 106/36 (59) 100 05/20/20 12:00 74 05/20/20 12:00 50 05/20/20 11:30 80 05/20/20 11:00 83 19 138/45 (76) 91 05/20/20 10:30 95 05/20/20 10:24 79 20 40 05/20/20 10:00 87 30 136/44 (74) 93 05/20/20 09:00 80 18 140/42 (74) 93 05/20/20 09:00 79 22 40 40 05/20/20 08:00 81 05/20/20 08:00 50 05/20/20 08:00 Mechanical Ventilator 05/20/20 08:00 98.4 76 17 124/38 (66) 95 05/20/20 07:19 84 19 40 05/20/20 07:00 80 17 137/42 (73) 94 05/20/20 06:30 80 20 05/20/20 06:00 74 16 117/39 (65) 05/20/20 05:00 73 16 129/38 (68) 05/20/20 04:00 98.3 74 15 125/37 (66) 91 05/20/20 04:00 50 05/20/20 04:00 Mechanical Ventilator 05/20/20 04:00 84 05/20/20 03:21 83 13 40 05/20/20 03:00 77 17 130/38 (68) 95 05/20/20 02:00 80 19 137/44 (75) 95 05/20/20 01:00 72 16 122/40 (67) 94 05/20/20 00:00 50 05/20/20 00:00 98.2 71 14 99/33 (55) 94 05/20/20 00:00 Mechanical Ventilator 05/20/20 00:00 72 05/19/20 23:24 74 14 40 05/19/20 23:00 79 17 131/42 (71) 96 05/19/20 22:00 71 15 113/36 (61) 97 05/19/20 21:00 82 17 138/45 (76) 97 Intake and Output 05/19/20 05/20/20 19:00 07:00 Intake Total 625.000 ml 850 ml Output Total 805 ml 720 ml Balance -180.000 ml 130 ml IV Total 275.000 ml 250 ml Tube Feeding 350 ml 600 ml Output Urine Total 805 ml 720 ml Laboratory Tests 05/20/20 04:00: White Blood Count 7.8, Red Blood Count 2.66L, Hemoglobin 8.6L, Hematocrit 24.9L, Mean Corpuscular Volume 94, Mean Corpuscular Hemoglobin 32.3H, Mean Corpuscular Hemoglobin Concent 34.5, Red Cell Distribution Width 13.8, Platelet Count 228, Mean Platelet Volume 6.6, Neutrophils (%) (Auto) 79.9H, Lymphocytes (%) (Auto) 15.2L, Monocytes (%) (Auto) 4.2, Eosinophils (%) (Auto) 0.4, Basophils (%) (Auto) 0.3, Sodium Level 150H, Potassium Level 4.0, Chloride Level 115H, Carbon Dioxide Level 30, Anion Gap 5, Blood Urea Nitrogen 37H, Creatinine 1.0, Estimat Glomerular Filtration Rate 53.3, Glucose Level 135H, Calcium Level 8.5, Phosphorus Level 2.2L, Magnesium Level 2.6H, Total Bilirubin 0.5, Direct Andrews irubin < 0.1, Aspartate Amino Transf (AST/SGOT) 9L, Alanine Aminotransferase (ALT/SGPT) 18, Alkaline Phosphatase 43L, Total Protein 6.6, Albumin 2.7L, Globulin 3.9, Albumin/Globulin Ratio 0.7L Height (Feet): 5 Height (Inches): 3.00 Weight (Pounds): 170 Assessment/Plan Problem List: (1) Anemia ICD Codes: D64.9 - Anemia, unspecified SNOMED: 997586234 (2) Hypercapnic respiratory failure ICD Codes: J96.92 - Respiratory failure, unspecified with hypercapnia SNOMED: 041045085 (3) COVID-19 ICD Codes: U07.1 - COVID-19 SNOMED: 427938326 (4) COPD (chronic obstructive pulmonary disease) ICD Codes: J44.9 - Chronic obstructive pulmonary disease, unspecified SNOMED: 02311603 (5) Psychosis ICD Codes: F29 - Unspecified psychosis not due to a substance or known physiological condition SNOMED: 86401431 (6) Hypoxia ICD Codes: R09.02 - Hypoxemia SNOMED: 537312284 (7) Renal failure (ARF), acute on chronic ICD Codes: N17.9 - Acute kidney failure, unspecified; N18.9 - Chronic kidney disease, unspecified SNOMED: 282125714 (8) CHF exacerbation ICD Codes: I50.9 - Heart failure, unspecified SNOMED: 009324020, 05530077314349 Status: progressing, unchanged Assessment/Plan: weaning continue supportive care obesity lethargic resp failure copd exacerbation no wheezing covid positive pna septic shock chf no change Dani Perera MD May 20, 2020 20:48
[2020-05-20] MEDS: Maintenance Dose:Remdesivir 100mg/NS 230ml x 4 Doses IV SCH ×2 (20:59)
--- NOTE | 2020-05-20 23:10 | Psychiatric Progress Note ---
Psychiatry Progress Note Psychiatry Progress Note Subjective the pt is calm Medications Current Medications Medications (Trade) Dose Ordered Sig/Angie Route PRN Reason Start Time Stop Time Status Last Admin Dose Admin Acetaminophen (Tylenol) 650 mg Q6H PRN NG Fever >100.5 05/14/20 21:00 06/13/20 20:59 05/14/20 21:10 Acetaminophen (Tylenol) 650 mg Q6H PRN NG Mild Pain (Pain Scale 1-3) 05/14/20 21:00 06/13/20 20:59 05/17/20 11:06 Chlorhexidine Gluconate (Ruba-Hex 2%) 1 applic DAILY@1999 TOPIC 05/15/20 20:00 08/13/20 19:59 05/20/20 20:01 Clonidine HCl (Catapres Tab) 0.1 mg Q4H PRN ORAL sbp>170 05/11/20 17:15 08/09/20 17:14 Dexamethasone Sodium Phosphate (Decadron 10mg/ ml Inj) 6 mg DAILY IV 05/12/20 15:45 05/21/20 15:44 05/20/20 08:58 Dextrose 1,000 ml @ 100 mls/hr Q10H IV 05/20/20 16:00 05/21/20 01:59 05/20/20 18:16 Haloperidol Lactate (Haldol) 5 mg Q6H PRN IM Agitation 05/13/20 20:45 06/27/20 20:44 05/17/20 09:45 Levofloxacin 150 ml @ 100 mls/hr Q48H IVPB 05/20/20 12:00 05/23/20 11:59 05/20/20 11:00 Levothyroxine Sodium (Synthroid) 50 mcg DAILY@0630 ORAL 05/14/20 06:30 06/13/20 06:29 05/20/20 05:38 Lorazepam (Ativan 2mg/ml 1ml) 1 mg Q4H PRN IV For Anxiety 05/17/20 12:00 05/24/20 11:59 05/20/20 20:26 Remdesivir 100 mg/ Sodium Chloride 250 ml @ 250 mls/hr Q24H IV 05/19/20 21:00 05/22/20 21:59 05/20/20 20:59 Vancomycin HCl 250 ml @ 167.007 mls/hr Q24H IVPB 05/21/20 11:00 05/26/20 10:59 Vancomycin HCl ([facility] pharmacy to dose) 1 ea DAILY PRN MISC Per rx protocol 05/15/20 08:45 06/14/20 08:44 Neurological/Psychiatric: Reports: anxiety, depressed, emotional problems Allergies: Coded Allergies: LITHIUM (Verified Allergy, Unknown, 02/07/19) Objective Data Height (Feet): 5 Height (Inches): 3.00 Weight (Pounds): 170 General Appearance: lethargic, confused, agitated Additional Comments: waxing and waning consciousness. Disoriented. Mood is neutral to agitation. Affect is flat. Thought process, there is paucity of thought process. Thought content, no suicidal or homicidal ideation. Cognition is impaired. Insight and judgment is impaired. Assessment/Plan Scott I: Scott I Acute toxic encephalopathy. Schizophrenia. Scott II Deferred. Scott III COVID-19. Scott IV Low. Scott V 20 PLAN: 1. Discontinue the IV Haldol. 2. Start the patient on Haldol IM. 3. The patient benefits from bilateral soft restraints. 4. Provide the patient with reality orientation. 5. Discussed with the nurse. Status: progressing, unchanged Status Narrative Scott I Acute toxic encephalopathy. Schizophrenia. Scott II Deferred. Scott III COVID-19. Scott IV Low. Scott V 20 PLAN: 1. Discontinue the IV Haldol. 2. Start the patient on Haldol IM. 3. The patient benefits from bilateral soft restraints. 4. Provide the patient with reality orientation. 5. Discussed with the nurse. Assessment/Plan: Scott I Acute toxic encephalopathy. Schizophrenia. Scott II Deferred. Scott III COVID-19. Scott IV Low. Scott V 20 PLAN: 1. Discontinue the IV Haldol. 2. Start the patient on Haldol IM. 3. The patient benefits from bilateral soft restraints. 4. Provide the patient with reality orientation. 5. Discussed with the nurse. Kiana Hernandez MD May 20, 2020 23:10
[2020-05-21] VITALS (24 sets, daily range): BP systolic 95–137; BP diastolic 32–56
[2020-05-21 06:06] LABS: BASOPHILS % (AUTO) 0.2 % (0.0-2.0); EOSINOPHILS % (AUTO) 0.5 % (0.0-3.0); HEMATOCRIT 25.1 % (37.0-47.0); HEMOGLOBIN 8.5 G/DL (12.0-16.0); MEAN CORPUSCULAR VOLUME 96 FL (80-99); MONOCYTES % (AUTO) 5.3 % (1.0-10.0); PLATELET COUNT 233 K/UL (150-450); RED CELL DISTRIBUTION WIDTH 13.7 % (11.6-14.8); WHITE BLOOD COUNT 7.8 K/UL (4.8-10.8)
[2020-05-21 06:17] LABS: ALANINE AMINOTRANSFERASE 18 U/L (12-78); ALBUMIN 2.6 G/DL (3.4-5.0); ALBUMIN/GLOBULIN RATIO 0.7 (1.0-2.7); ALKALINE PHOSPHATASE 40 U/L (46-116); ANION GAP 4 mmol/L (5-15); ASPARTATE AMINO TRANSFERASE 13 U/L (15-37); BILIRUBIN,DIRECT 0.2 MG/DL (0.0-0.3); BILIRUBIN,TOTAL 0.6 MG/DL (0.2-1.0); BLOOD UREA NITROGEN 35 mg/dL (7-18); CALCIUM 8.7 MG/DL (8.5-10.1); CARBON DIOXIDE 32 MMOL/L (21-32); CHLORIDE 113 MMOL/L (98-107); CREATININE 0.9 MG/DL (0.55-1.30); POTASSIUM 4.3 MMOL/L (3.5-5.1); SODIUM 149 MMOL/L (136-145)
--- NOTE | 2020-05-21 09:11 | Cardiac Electrophysiology PN ---
Assessment/Plan Assessment/Plan 1. Covid PNA, respiratory failure. Intubated on the Vent with 40% Fio2 Will try to wean again 2. History of COPD. 3. Hypotension. Off Dopamine. EF 55% 4. Bradycardia resolved and is off Dopamine 5. Schizophrenia and psychosis. YOSELYN RN Subjective Subjective Intubated in ICU in Covid isolation On 40% Fio2 and off Dopamine Failed weaning yesterday Objective Last 24 Hour Vital Signs Date Time Temp Pulse Resp B/P (MAP) Pulse Ox O2 Delivery O2 Flow Rate FiO2 05/21/20 07:02 85 23 40 05/21/20 07:00 71 16 101/33 (55) 92 05/21/20 06:30 75 20 05/21/20 06:00 80 22 123/37 (65) 95 05/21/20 05:00 78 19 121/36 (64) 94 05/21/20 04:00 50 05/21/20 04:00 76 05/21/20 04:00 98.4 84 17 137/41 (73) 100 05/21/20 04:00 Mechanical Ventilator 05/21/20 03:00 78 21 131/40 (70) 98 05/21/20 02:43 73 16 40 05/21/20 02:00 72 16 114/34 (60) 95 05/21/20 01:00 72 16 108/33 (58) 94 05/21/20 00:00 72 05/21/20 00:00 Mechanical Ventilator 05/21/20 00:00 50 05/21/20 00:00 99.0 73 17 109/37 (61) 92 05/20/20 23:00 89 16 125/46 (72) 97 05/20/20 22:50 90 17 40 05/20/20 22:00 85 21 140/48 (78) 96 05/20/20 21:00 73 16 105/32 (56) 92 05/20/20 20:56 73 22 117/34 95 05/20/20 20:26 82 23 118/51 98 05/20/20 20:00 98.9 86 18 118/51 (73) 97 05/20/20 20:00 89 05/20/20 20:00 Mechanical Ventilator 05/20/20 20:00 50 05/20/20 19:00 88 18 125/44 (71) 97 12/8/20 18:43 85 20 40 05/20/20 18:00 76 16 119/41 (67) 94 05/20/20 17:00 78 16 115/43 (67) 94 05/20/20 16:00 99.3 80 16 109/42 (64) 92 05/20/20 16:00 84 05/20/20 16:00 50 05/20/20 16:00 Mechanical Ventilator 05/20/20 15:00 71 14 124/47 (72) 99 05/20/20 15:00 78 22 40 05/20/20 14:00 78 16 116/42 (66) 97 05/20/20 13:30 82 21 130/42 (71) 99 05/20/20 13:00 75 15 116/42 (66) 98 05/20/20 12:16 60 05/20/20 12:00 Mechanical Ventilator 05/20/20 12:00 98.9 75 16 106/36 (59) 100 05/20/20 12:00 74 05/20/20 12:00 50 05/20/20 11:30 80 05/20/20 11:00 83 19 138/45 (76) 91 05/20/20 10:30 95 05/20/20 10:24 79 20 40 05/20/20 10:00 87 30 136/44 (74) 93 Intake and Output 05/20/20 05/21/20 19:00 07:00 Intake Total 1171.944 ml 1496.944 ml Output Total 925 ml 900 ml Balance 246.944 ml 596.944 ml IV Total 571.944 ml 896.944 ml Tube Feeding 600 ml 600 ml Output Urine Total 925 ml 900 ml Laboratory Tests Test 05/21/20 04:55 White Blood Count 7.8 K/UL (4.8-10.8) Red Blood Count 2.60 M/UL (4.20-5.40) L Hemoglobin 8.5 G/DL (12.0-16.0) L Hematocrit 25.1 % (37.0-47.0) L Mean Corpuscular Volume 96 FL (80-99) Mean Corpuscular Hemoglobin 32.5 PG (27.0-31.0) H Mean Corpuscular Hemoglobin Concent 33.8 G/DL (32.0-36.0) Red Cell Distribution Width 13.7 % (11.6-14.8) Platelet Count 233 K/UL (150-450) Mean Platelet Volume 7.8 FL (6.5-10.1) Neutrophils (%) (Auto) 80.0 % (45.0-75.0) H Lymphocytes (%) (Auto) 14.0 % (20.0-45.0) L Monocytes (%) (Auto) 5.3 % (1.0-10.0) Eosinophils (%) (Auto) 0.5 % (0.0-3.0) Basophils (%) (Auto) 0.2 % (0.0-2.0) Sodium Level 149 MMOL/L (136-145) H Potassium Level 4.3 MMOL/L (3.5-5.1) Chloride Level 113 MMOL/L (98-107) H Carbon Dioxide Level 32 MMOL/L (21-32) Anion Gap 4 mmol/L (5-15) L Blood Urea Nitrogen 35 mg/dL (7-18) H Creatinine 0.9 MG/DL (0.55-1.30) Estimat Glomerular Filtration Rate > 60 mL/min (>60) Glucose Level 139 MG/DL (74-106) H Calcium Level 8.7 MG/DL (8.5-10.1) Total Bilirubin 0.6 MG/DL (0.2-1.0) Direct Bilirubin 0.2 MG/DL (0.0-0.3) Aspartate Amino Transf (AST/SGOT) 13 U/L (15-37) L Alanine Aminotransferase (ALT/SGPT) 18 U/L (12-78) Alkaline Phosphatase 40 U/L (46-116) L Total Protein 6.3 G/DL (6.4-8.2) L Albumin 2.6 G/DL (3.4-5.0) L Globulin 3.7 g/dL Albumin/Globulin Ratio 0.7 (1.0-2.7) L Objective HEAD AND NECK: Positive JVD.Orally intubated LUNGS: Decreased breath sounds. CARDIOVASCULAR: Regular S1 and S2 with no gallop. ABDOMEN: Obese. EXTREMITIES: Bilateral 2+ pitting edema. Cameron Davies MD May 21, 2020 09:11
[2020-05-21] MEDS: dexAMETHasone 10mg/ml Inj IV SCH (09:14)
[2020-05-21] MEDS: Haloperidol 5mg/ml Inj IM PRN (09:41)
--- NOTE | 2020-05-21 10:59 | Infectious Diseases Prog Note ---
Assessment/Plan Assessment/Plan IMPRESSION: COVID-19 disease, Acute respiratory failure, COPD, Diastolic CHF, Mitral valve regurgitation, Anemia, Parkinson disease, schizoaffective disorder, Dementia, Obstructive sleep apnea, Hypothyroidism. 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 RECOMMENDATION: Continue dexamethasone Continue Remdesivir X 2 more days Continue Levaquin & Vancomycin Will have tracheostomy tomorrow Subjective ROS Limited/Unobtainable: Yes Constitutional: Denies: fever Allergies: Coded Allergies: LITHIUM (Verified Allergy, Unknown, 02/07/19) Objective Last 24 Hour Vital Signs Date Time Temp Pulse Resp B/P (MAP) Pulse Ox O2 Delivery O2 Flow Rate FiO2 05/21/20 09:00 87 27 133/44 (73) 96 05/21/20 08:24 96 05/21/20 08:00 71 05/21/20 08:00 50 05/21/20 08:00 Mechanical Ventilator 05/21/20 08:00 98.6 76 19 124/34 (64) 94 05/21/20 07:02 85 23 40 05/21/20 07:00 71 16 101/33 (55) 92 05/21/20 06:30 75 20 05/21/20 06:00 80 22 123/37 (65) 95 05/21/20 05:00 78 19 121/36 (64) 94 05/21/20 04:00 50 05/21/20 04:00 76 05/21/20 04:00 98.4 84 17 137/41 (73) 100 05/21/20 04:00 Mechanical Ventilator 05/21/20 03:00 78 21 131/40 (70) 98 05/21/20 02:43 73 16 40 05/21/20 02:00 72 16 114/34 (60) 95 05/21/20 01:00 72 16 108/33 (58) 94 05/21/20 00:00 72 05/21/20 00:00 Mechanical Ventilator 05/21/20 00:00 50 05/21/20 00:00 99.0 73 17 109/37 (61) 92 05/20/20 23:00 89 16 125/46 (72) 97 05/20/20 22:50 90 17 40 05/20/20 22:00 85 21 140/48 (78) 96 05/20/20 21:00 73 16 105/32 (56) 92 05/20/20 20:56 73 22 117/34 95 05/20/20 20:26 82 23 118/51 98 05/20/20 20:00 98.9 86 18 118/51 (73) 97 05/20/20 20:00 89 05/20/20 20:00 Mechanical Ventilator 05/20/20 20:00 50 05/20/20 19:00 88 18 125/44 (71) 97 05/20/20 18:43 85 20 40 05/20/20 18:00 76 16 119/41 (67) 94 05/20/20 17:00 78 16 115/43 (67) 94 05/20/20 16:00 99.3 80 16 109/42 (64) 92 05/20/20 16:00 84 05/20/20 16:00 50 05/20/20 16:00 Mechanical Ventilator 05/20/20 15:00 71 14 124/47 (72) 99 05/20/20 15:00 78 22 40 05/20/20 14:00 78 16 116/42 (66) 97 05/20/20 13:30 82 21 130/42 (71) 99 05/20/20 13:00 75 15 116/42 (66) 98 05/20/20 12:16 60 05/20/20 12:00 Mechanical Ventilator 05/20/20 12:00 98.9 75 16 106/36 (59) 100 05/20/20 12:00 74 05/20/20 12:00 50 05/20/20 11:30 80 05/20/20 11:00 83 19 138/45 (76) 91 Height (Feet): 5 Height (Inches): 3.00 Weight (Pounds): 170 HEENT: mucous membranes moist, other - orally intubated Respiratory/Chest: other - on ventilator Cardiovascular: normal rate Abdomen: soft, non tender Extremities: no edema Neurologic/Psychiatric: disoriented Laboratory Tests Test 05/21/20 04:55 White Blood Count 7.8 K/UL (4.8-10.8) Red Blood Count 2.60 M/UL (4.20-5.40) L Hemoglobin 8.5 G/DL (12.0-16.0) L Hematocrit 25.1 % (37.0-47.0) L Mean Corpuscular Volume 96 FL (80-99) Mean Corpuscular Hemoglobin 32.5 PG (27.0-31.0) H Mean Corpuscular Hemoglobin Concent 33.8 G/DL (32.0-36.0) Red Cell Distribution Width 13.7 % (11.6-14.8) Platelet Count 233 K/UL (150-450) Mean Platelet Volume 7.8 FL (6.5-10.1) Neutrophils (%) (Auto) 80.0 % (45.0-75.0) H Lymphocytes (%) (Auto) 14.0 % (20.0-45.0) L Monocytes (%) (Auto) 5.3 % (1.0-10.0) Eosinophils (%) (Auto) 0.5 % (0.0-3.0) Basophils (%) (Auto) 0.2 % (0.0-2.0) Sodium Level 149 MMOL/L (136-145) H Potassium Level 4.3 MMOL/L (3.5-5.1) Chloride Level 113 MMOL/L (98-107) H Carbon Dioxide Level 32 MMOL/L (21-32) Anion Gap 4 mmol/L (5-15) L Blood Urea Nitrogen 35 mg/dL (7-18) H Creatinine 0.9 MG/DL (0.55-1.30) Estimat Glomerular Filtration Rate > 60 mL/min (>60) Glucose Level 139 MG/DL (74-106) H Calcium Level 8.7 MG/DL (8.5-10.1) Phosphorus Level Pending Magnesium Level Pending Total Bilirubin 0.6 MG/DL (0.2-1.0) Direct Bilirubin 0.2 MG/DL (0.0-0.3) Aspartate Amino Transf (AST/SGOT) 13 U/L (15-37) L Alanine Aminotransferase (ALT/SGPT) 18 U/L (12-78) Alkaline Phosphatase 40 U/L (46-116) L Total Protein 6.3 G/DL (6.4-8.2) L Albumin 2.6 G/DL (3.4-5.0) L Globulin 3.7 g/dL Albumin/Globulin Ratio 0.7 (1.0-2.7) L Current Medications Medications (Trade) Dose Ordered Sig/Angie Route PRN Reason Start Time Stop Time Status Last Admin Dose Admin Acetaminophen (Tylenol) 650 mg Q6H PRN NG Fever >100.5 05/14/20 21:00 06/13/20 20:59 05/14/20 21:10 Acetaminophen (Tylenol) 650 mg Q6H PRN NG Mild Pain (Pain Scale 1-3) 05/14/20 21:00 06/13/20 20:59 05/17/20 11:06 Chlorhexidine Gluconate (Ruba-Hex 2%) 1 applic DAILY@2000 TOPIC 05/15/20 20:00 08/13/20 19:59 05/20/20 20:01 Clonidine HCl (Catapres Tab) 0.1 mg Q4H PRN ORAL sbp>170 05/11/20 17:15 08/09/20 17:14 Dexamethasone Sodium Phosphate (Decadron 10mg/ ml Inj) 6 mg DAILY IV 05/12/20 15:45 05/21/20 15:44 05/21/20 09:14 Haloperidol Lactate (Haldol) 5 mg Q6H PRN IM Agitation 05/13/20 20:45 06/27/20 20:44 05/21/20 09:41 Levofloxacin 150 ml @ 100 mls/hr Q48H IVPB 05/20/20 12:00 05/23/20 11:59 05/20/20 11:00 Levothyroxine Sodium (Synthroid) 50 mcg DAILY@0630 ORAL 05/14/20 06:30 06/13/20 06:29 05/21/20 05:52 Lorazepam (Ativan 2mg/ml 1ml) 1 mg Q4H PRN IV For Anxiety 05/17/20 12:00 05/24/20 11:59 05/20/20 20:26 Remdesivir 100 mg/ Sodium Chloride 250 ml @ 250 mls/hr Q24H IV 05/19/20 21:00 05/22/20 21:59 05/20/20 20:59 Vancomycin HCl 250 ml @ 167.007 mls/hr Q24H IVPB 05/21/20 11:00 05/26/20 10:59 Vancomycin HCl ([facility] pharmacy to dose) 1 ea DAILY PRN MISC Per rx protocol 05/15/20 08:45 06/14/20 08:44 Lei Chan MD May 21, 2020 10:59
[2020-05-21 11:27] LABS: PHOSPHORUS 3.2 MG/DL (2.5-4.9)
--- NOTE | 2020-05-21 12:02 | Pulmonology Progress Note ---
Subjective ROS Limited/Unobtainable: Yes Interval Events: Remains intubated; unable to wean Constitutional: Denies: fever HEENT: Repors: no symptoms Respiratory: Reports: no symptoms Cardiovascular: Reports: no symptoms Gastrointestinal/Abdominal: Reports: no symptoms Genitourinary: Reports: no symptoms Allergies: Coded Allergies: LITHIUM (Verified Allergy, Unknown, 02/07/19) Objective Last 24 Hour Vital Signs Date Time Temp Pulse Resp B/P (MAP) Pulse Ox O2 Delivery O2 Flow Rate FiO2 05/21/20 09:00 87 27 133/44 (73) 96 05/21/20 08:24 96 05/21/20 08:00 71 05/21/20 08:00 50 05/21/20 08:00 Mechanical Ventilator 05/21/20 08:00 98.6 76 19 124/34 (64) 94 05/21/20 07:02 85 23 40 05/21/20 07:00 71 16 101/33 (55) 92 05/21/20 06:30 75 20 05/21/20 06:00 80 22 123/37 (65) 95 05/21/20 05:00 78 19 121/36 (64) 94 05/21/20 04:00 50 05/21/20 04:00 76 05/21/20 04:00 98.4 84 17 137/41 (73) 100 05/21/20 04:00 Mechanical Ventilator 05/21/20 03:00 78 21 131/40 (70) 98 05/21/20 02:43 73 16 40 05/21/20 02:00 72 16 114/34 (60) 95 05/21/20 01:00 72 16 108/33 (58) 94 05/21/20 00:00 72 05/21/20 00:00 Mechanical Ventilator 05/21/20 00:00 50 05/21/20 00:00 99.0 73 17 109/37 (61) 92 05/20/20 23:00 89 16 125/46 (72) 97 05/20/20 22:50 90 17 40 05/20/20 22:00 85 21 140/48 (78) 96 05/20/20 21:00 73 16 105/32 (56) 92 05/20/20 20:56 73 22 117/34 95 05/20/20 20:26 82 23 118/51 98 05/20/20 20:00 98.9 86 18 118/51 (73) 97 05/20/20 20:00 89 05/20/20 20:00 Mechanical Ventilator 05/20/20 20:00 50 05/20/20 19:00 88 18 125/44 (71) 97 05/20/20 18:43 85 20 40 05/20/20 18:00 76 16 119/41 (67) 94 05/20/20 17:00 78 16 115/43 (67) 94 05/20/20 16:00 99.3 80 16 109/42 (64) 92 05/20/20 16:00 84 05/20/20 16:00 50 05/20/20 16:00 Mechanical Ventilator 05/20/20 15:00 71 14 124/47 (72) 99 05/20/20 15:00 78 22 40 05/20/20 14:00 78 16 116/42 (66) 97 05/20/20 13:30 82 21 130/42 (71) 99 05/20/20 13:00 75 15 116/42 (66) 98 05/20/20 12:16 60 Intake and Output 05/20/20 05/21/20 19:00 07:00 Intake Total 1171.944 ml 1496.944 ml Output Total 925 ml 900 ml Balance 246.944 ml 596.944 ml IV Total 571.944 ml 896.944 ml Tube Feeding 600 ml 600 ml Output Urine Total 925 ml 900 ml General Appearance: no acute distress HEENT: normocephalic Respiratory: no respiratory distress, decreased breath sounds, other - On ventilator Cardiovascular: normal rate Abdomen: soft, non tender, other - obese, NG tube Extremities: other - b/l 2+ pitting edema Neurologic: disoriented Laboratory Tests 05/21/20 04:55: White Blood Count 7.8, Red Blood Count 2.60L, Hemoglobin 8.5L, Hematocrit 25.1L, Mean Corpuscular Volume 96, Mean Corpuscular Hemoglobin 32.5H, Mean Corpuscular Hemoglobin Concent 33.8, Red Cell Distribution Width 13.7, Platelet Count 233, Mean Platelet Volume 7.8, Neutrophils (%) (Auto) 80.0H, Lymphocytes (%) (Auto) 14.0L, Monocytes (%) (Auto) 5.3, Eosinophils (%) (Auto) 0.5, Basophils (%) (Auto) 0.2, Sodium Level 149H, Potassium Level 4.3, Chloride Level 113H, Carbon Dioxide Level 32, Anion Gap 4L, Blood Urea Nitrogen 35H, Creatinine 0.9, Estimat Glomerular Filtration Rate > 60, Glucose Level 139H, Calcium Level 8.7, Phosphorus Level 3.2, Magnesium Level 2.2, Total Bilirubin 0.6, Direct Bilirubin 0.2, Aspartate Amino Transf (AST/SGOT) 13L, Alanine Aminotransferase (ALT/SGPT) 18, Alkaline Phosphatase 40L, Total Protein 6.3L, Albumin 2.6L, Globulin 3.7, Albumin/Globulin Ratio 0.7L Current Medications Medications (Trade) Dose Ordered Sig/Angie Route PRN Reason Start Time Stop Time Status Last Admin Dose Admin Acetaminophen (Tylenol) 650 mg Q6H PRN NG Fever >100.5 05/14/20 21:00 06/13/20 20:59 05/14/20 21:10 Acetaminophen (Tylenol) 650 mg Q6H PRN NG Mild Pain (Pain Scale 1-3) 05/14/20 21:00 06/13/20 20:59 05/17/20 11:06 Chlorhexidine Gluconate (Ruba-Hex 2%) 1 applic DAILY@1999 TOPIC 05/15/20 20:00 08/13/20 19:59 05/20/20 20:01 Clonidine HCl (Catapres Tab) 0.1 mg Q4H PRN ORAL sbp>170 05/11/20 17:15 08/09/20 17:14 Dexamethasone Sodium Phosphate (Decadron 10mg/ ml Inj) 6 mg DAILY IV 05/12/20 15:45 05/21/20 15:44 05/21/20 09:14 Haloperidol Lactate (Haldol) 5 mg Q6H PRN IM Agitation 05/13/20 20:45 06/27/20 20:44 05/21/20 09:41 Levofloxacin 150 ml @ 100 mls/hr Q48H IVPB 05/20/20 12:00 05/23/20 11:59 05/20/20 11:00 Levothyroxine Sodium (Synthroid) 50 mcg DAILY@0630 ORAL 05/14/20 06:30 06/13/20 06:29 05/21/20 05:52 Lorazepam (Ativan 2mg/ml 1ml) 1 mg Q4H PRN IV For Anxiety 05/17/20 12:00 05/24/20 11:59 05/20/20 20:26 Remdesivir 100 mg/ Sodium Chloride 250 ml @ 250 mls/hr Q24H IV 05/19/20 21:00 05/22/20 21:59 05/20/20 20:59 Vancomycin HCl 250 ml @ 167.007 mls/hr Q24H IVPB 05/21/20 11:00 05/26/20 10:59 05/21/20 11:05 Vancomycin HCl ([facility] pharmacy to dose) 1 ea DAILY PRN MISC Per rx protocol 05/15/20 08:45 06/14/20 08:44 Assessment/Plan Assessment/Plan 1. Bilateral COVID-19 multilobar pneumonia. - s/p ETT - Afebrile - Continue Azithromycin, Ceftriaxone, dexamethasone - On remdesivir - defer to ID 2. Hx of COPD. 3. Schizophrenia/psychosis - On dopamine, haloperidol 4. Hypoxia. - Weaning failed again today; attempt again tomorrow - Cont vent; AC mode - Discussed with surgery; in view of persistent failure to wean; will recommend trach 5. Anemia - hgb 9.6 -> 7.9 -> 8.4 6. Azotemia/renal failure - UA: Positive leuk esterase, protein, RBC, WBC (05/11/2020) - BUN 32 -> 39 -> 34 DVT ppx Time spent for this case was 31 minutes Sincere Myers MD May 21, 2020 12:02
--- NOTE | 2020-05-21 12:30 | Nephrology Progress Note ---
Assessment/Plan Problem List: (1) Renal failure (ARF), acute on chronic (2) Hypercapnic respiratory failure (3) CHF exacerbation Assessment Azotemia/renal failure Acute respiratory failure most likely secondary to CHF, on mechanical ventilation History of COPD Hypertension Hyperlipemia Schizophrenia/psychosis Plan May 21: Remains intubated. Labs reviewed. Abnormal electrolytes addressed. Discussed with RN. May 20: Remains intubated. Abnormal electrolyte noted on today's lab results and addressed. Continue per consultants. May 19: Patient remains intubated. Labs reviewed. Abnormal electrolytes addressed. Continue per current management. May 18: Patient seen in ICU. Remains intubated. Weaning is being tried. Discussed with RN. Labs reviewed. Abnormal electrolyte addressed. Continue per consultants. May 17: Labs reviewed. Remains intubated. Stable from renal standpoint of view. Continue weaning. Discussed with RN. May 16: Labs reviewed. Remains intubated. Remains full code. Stable from renal standpoint of view. Abnormal electrolytes addressed. May 15: Labs reviewed. Renal parameters stable. Discussed with RN. Patient remains intubated on ventilator and full code. Continue per consultants. May 14: Labs reviewed. Discussed with RN. Abnormal electrolyte addressed. Continue per current management. Patient seen in ICU. Discussed with RN. Today's labs pending. Patient remains on 6 mics of dopamine. Pulmonary support Monitor intake and output Monitor electrolytes Continue per consultants Per orders Subjective ROS Limited/Unobtainable: Yes Objective Objective Last 24 Hour Vital Signs Date Time Temp Pulse Resp B/P (MAP) Pulse Ox O2 Delivery O2 Flow Rate FiO2 05/21/20 12:00 40 05/21/20 12:00 Mechanical Ventilator 05/21/20 12:00 98.8 71 16 100/34 (56) 99 05/21/20 12:00 74 05/21/20 11:00 75 16 104/36 (58) 100 05/21/20 10:00 82 19 121/36 (64) 100 05/21/20 09:00 87 27 133/44 (73) 96 05/21/20 08:24 96 05/21/20 08:00 71 05/21/20 08:00 50 05/21/20 08:00 Mechanical Ventilator 05/21/20 08:00 98.6 76 19 124/34 (64) 94 05/21/20 07:02 85 23 40 05/21/20 07:00 71 16 101/33 (55) 92 05/21/20 06:30 75 20 05/21/20 06:00 80 22 123/37 (65) 95 05/21/20 05:00 78 19 121/36 (64) 94 05/21/20 04:00 50 05/21/20 04:00 76 05/21/20 04:00 98.4 84 17 137/41 (73) 100 05/21/20 04:00 Mechanical Ventilator 05/21/20 03:00 78 21 131/40 (70) 98 05/21/20 02:43 73 16 40 05/21/20 02:00 72 16 114/34 (60) 95 05/21/20 01:00 72 16 108/33 (58) 94 05/21/20 00:00 72 05/21/20 00:00 Mechanical Ventilator 05/21/20 00:00 50 05/21/20 00:00 99.0 73 17 109/37 (61) 92 05/20/20 23:00 89 16 125/46 (72) 97 05/20/20 22:50 90 17 40 05/20/20 22:00 85 21 140/48 (78) 96 05/20/20 21:00 73 16 105/32 (56) 92 05/20/20 20:56 73 22 117/34 95 05/20/20 20:26 82 23 118/51 98 05/20/20 20:00 98.9 86 18 118/51 (73) 97 05/20/20 20:00 89 05/20/20 20:00 Mechanical Ventilator 05/20/20 20:00 50 05/20/20 19:00 88 18 125/44 (71) 97 05/20/20 18:43 85 20 40 05/20/20 18:00 76 16 119/41 (67) 94 05/20/20 17:00 78 16 115/43 (67) 94 05/20/20 16:00 99.3 80 16 109/42 (64) 92 05/20/20 16:00 84 05/20/20 16:00 50 05/20/20 16:00 Mechanical Ventilator 05/20/20 15:00 71 14 124/47 (72) 99 05/20/20 15:00 78 22 40 05/20/20 14:00 78 16 116/42 (66) 97 05/20/20 13:30 82 21 130/42 (71) 99 05/20/20 13:00 75 15 116/42 (66) 98 Intake and Output 05/20/20 05/21/20 19:00 07:00 Intake Total 1171.944 ml 1496.944 ml Output Total 925 ml 900 ml Balance 246.944 ml 596.944 ml IV Total 571.944 ml 896.944 ml Tube Feeding 600 ml 600 ml Output Urine Total 925 ml 900 ml Laboratory Tests 05/21/20 04:55: White Blood Count 7.8, Red Blood Count 2.60L, Hemoglobin 8.5L, Hematocrit 25.1L, Mean Corpuscular Volume 96, Mean Corpuscular Hemoglobin 32.5H, Mean Corpuscular Hemoglobin Concent 33.8, Red Cell Distribution Width 13.7, Platelet Count 233, Mean Platelet Volume 7.8, Neutrophils (%) (Auto) 80.0H, Lymphocytes (%) (Auto) 14.0L, Monocytes (%) (Auto) 5.3, Eosinophils (%) (Auto) 0.5, Basophils (%) (Auto) 0.2, Sodium Level 149H, Potassium Level 4.3, Chloride Level 113H, Carbon Dioxide Level 32, Anion Gap 4L, Blood Urea Nitrogen 35H, Creatinine 0.9, Estimat Glomerular Filtration Rate > 60, Glucose Level 139H, Calcium Level 8.7, Phosphorus Level 3.2, Magnesium Level 2.2, Total Bilirubin 0.6, Direct Bilirubin 0.2, Aspartate Amino Transf (AST/SGOT) 13L, Alanine Aminotransferase (ALT/SGPT) 18, Alkaline Phosphatase 40L, Total Protein 6.3L, Albumin 2.6L, Globulin 3.7, Albumin/Globulin Ratio 0.7L Height (Feet): 5 Height (Inches): 3.00 Weight (Pounds): 170 General Appearance: no apparent distress EENT: other - Intubated on ventilator Cardiovascular: normal rate Respiratory/Chest: decreased breath sounds Abdomen: distended Bryan Ochoa MD May 21, 2020 12:30
--- NOTE | 2020-05-21 17:14 | General Progress Note ---
Subjective ROS Limited/Unobtainable: Yes Allergies: Coded Allergies: LITHIUM (Verified Allergy, Unknown, 02/07/19) Objective Last 24 Hour Vital Signs Date Time Temp Pulse Resp B/P (MAP) Pulse Ox O2 Delivery O2 Flow Rate FiO2 05/21/20 15:00 72 17 98/35 (56) 100 05/21/20 14:00 70 18 95/34 (54) 100 05/21/20 13:00 74 17 105/34 (57) 100 05/21/20 12:00 40 05/21/20 12:00 Mechanical Ventilator 05/21/20 12:00 98.8 71 16 100/34 (56) 99 05/21/20 12:00 74 05/21/20 11:23 73 15 100 05/21/20 11:00 75 16 104/36 (58) 100 05/21/20 10:00 82 19 121/36 (64) 100 05/21/20 09:00 87 27 133/44 (73) 96 05/21/20 08:24 96 05/21/20 08:00 71 05/21/20 08:00 50 05/21/20 08:00 Mechanical Ventilator 05/21/20 08:00 98.6 76 19 124/34 (64) 94 05/21/20 07:02 85 23 40 05/21/20 07:00 71 16 101/33 (55) 92 05/21/20 06:30 75 20 05/21/20 06:00 80 22 123/37 (65) 95 05/21/20 05:00 78 19 121/36 (64) 94 05/21/20 04:00 50 05/21/20 04:00 76 05/21/20 04:00 98.4 84 17 137/41 (73) 100 05/21/20 04:00 Mechanical Ventilator 05/21/20 03:00 78 21 131/40 (70) 98 05/21/20 02:43 73 16 40 05/21/20 02:00 72 16 114/34 (60) 95 05/21/20 01:00 72 16 108/33 (58) 94 05/21/20 00:00 72 05/21/20 00:00 Mechanical Ventilator 05/21/20 00:00 50 05/21/20 00:00 99.0 73 17 109/37 (61) 92 05/20/20 23:00 89 16 125/46 (72) 97 05/20/20 22:50 90 17 40 05/20/20 22:00 85 21 140/48 (78) 96 05/20/20 21:00 73 16 105/32 (56) 92 05/20/20 20:56 73 22 117/34 95 05/20/20 20:26 82 23 118/51 98 05/20/20 20:00 98.9 86 18 118/51 (73) 97 05/20/20 20:00 89 05/20/20 20:00 Mechanical Ventilator 05/20/20 20:00 50 05/20/20 19:00 88 18 125/44 (71) 97 05/20/20 18:43 85 20 40 05/20/20 18:00 76 16 119/41 (67) 94 Intake and Output 05/20/20 05/21/20 19:00 07:00 Intake Total 1171.944 ml 1496.944 ml Output Total 925 ml 900 ml Balance 246.944 ml 596.944 ml IV Total 571.944 ml 896.944 ml Tube Feeding 600 ml 600 ml Output Urine Total 925 ml 900 ml Laboratory Tests 05/21/20 04:55: White Blood Count 7.8, Red Blood Count 2.60L, Hemoglobin 8.5L, Hematocrit 25.1L, Mean Corpuscular Volume 96, Mean Corpuscular Hemoglobin 32.5H, Mean Corpuscular Hemoglobin Concent 33.8, Red Cell Distribution Width 13.7, Platelet Count 233, Mean Platelet Volume 7.8, Neutrophils (%) (Auto) 80.0H, Lymphocytes (%) (Auto) 14.0L, Monocytes (%) (Auto) 5.3, Eosinophils (%) (Auto) 0.5, Basophils (%) (Auto) 0.2, Sodium Level 149H, Potassium Level 4.3, Chloride Level 113H, Carbon Dioxide Level 32, Anion Gap 4L, Blood Urea Nitrogen 35H, Creatinine 0.9, Estimat Glomerular Filtration Rate > 60, Glucose Level 139H, Calcium Level 8.7, Phosphorus Level 3.2, Magnesium Level 2.2, Total Bilirubin 0.6, Direct Bilirubin 0.2, Aspartate Amino Transf (AST/SGOT) 13L, Alanine Aminotransferase (ALT/SGPT) 18, Alkaline Phosphatase 40L, Total Protein 6.3L, Albumin 2.6L, Globulin 3.7, Albumin/Globulin Ratio 0.7L Height (Feet): 5 Height (Inches): 3.00 Weight (Pounds): 170 Assessment/Plan Problem List: (1) Anemia ICD Codes: D64.9 - Anemia, unspecified SNOMED: 989478464 (2) Hypercapnic respiratory failure ICD Codes: J96.92 - Respiratory failure, unspecified with hypercapnia SNOMED: 530828338 (3) COVID-19 ICD Codes: U07.1 - COVID-19 SNOMED: 514095957 (4) COPD (chronic obstructive pulmonary disease) ICD Codes: J44.9 - Chronic obstructive pulmonary disease, unspecified SNOMED: 05697453 (5) Psychosis ICD Codes: F29 - Unspecified psychosis not due to a substance or known physiological condition SNOMED: 27044429 (6) Hypoxia ICD Codes: R09.02 - Hypoxemia SNOMED: 782379491 (7) Renal failure (ARF), acute on chronic ICD Codes: N17.9 - Acute kidney failure, unspecified; N18.9 - Chronic kidney disease, unspecified SNOMED: 949733158 (8) CHF exacerbation ICD Codes: I50.9 - Heart failure, unspecified SNOMED: 948383436, [id number] Status: progressing, unchanged Assessment/Plan: difficulty with weaning trach per dr carter not on pressors on feeding resp failure copd exacerbation no wheezing covid positive pna septic shock chf no change Dani Perera MD May 21, 2020 17:13
--- NOTE | 2020-05-21 18:05 | Consultation ---
History of Present Illness General Date patient seen: May 21, 2020 Reason for Hospitalization: Dyspnea/Respdistress Present Illness HPI 79 year old female currently admitted to [facility] intubated on vent support unable to wean safely recommended for a trach. surgery called to evaluate and assist with care. patient seen, chart reviewed, patient examined. care discussed with pcp, patients guardian, and pulm. Allergies: Coded Allergies: LITHIUM (Verified Allergy, Unknown, 02/07/19) COVID-19 Screening Contact w/high risk pt: Yes Experienced COVID-19 symptoms?: Yes Coronavirus symptoms experienc: Shortness of Breath, Cough Medication History Scheduled Amantadine Hcl* (Amantadine*), 100 MG ORAL TWICE A DAY, (Reported) Ascorbic Acid (C-1000), 2,000 MG ORAL DAILY, (Reported) Aspirin* (Aspirin Ec*), 325 MG ORAL DAILY, (Reported) Aspirin* (Aspirin Ec*), 325 MG ORAL DAILY, (Reported) Atorvastatin Calcium* (Lipitor*), 10 MG ORAL BEDTIME, (Reported) Atorvastatin Calcium* (Lipitor*), 10 MG ORAL BEDTIME, (Reported) Cholecalciferol (Vitamin D3) (Vitamin D3), 25 MCG PO DAILY, (Reported) Cholecalciferol (Vitamin D3) (Vitamin D3*), 25 MCG PO DAILY, (Reported) Cranberry Conc/Ascorbic Acid (Cranberry Concentrate Softgel), 2 EACH PO DAILY, (Reported) Divalproex Sodium* (Depakote*), 250 MG ORAL EVERY 12 HOURS Docusate Sodium* (Colace*), 100 MG ORAL DAILY, (Reported) Famotidine (Famotidine), 20 MG PO DAILY, (Reported) Famotidine* (Pepcid 20mg tablet*), 20 MG ORAL DAILY, (Reported) Fluphenazine Decanoate (Fluphenazine Decanoate), 50 MG IJ EVERY MONTH, (Reported) Furosemide* (Lasix*), 20 MG ORAL DAILY, (Reported) Furosemide* (Lasix*), 20 MG ORAL DAILY, (Reported) Heparin Sod (Porcine) (Heparin Sodium*), 5,000 UNITS SUBQ EVERY 12 HOURS, (Reported) Lactulose (Lactulose*), 20 GM NG BID Lactulose (Lactulose*), 30 ML ORAL Q12HR, (Reported) Levothyroxine Sodium* (Synthroid*), 150 MCG ORAL DAILY, (Reported) Levothyroxine Sodium* (Synthorid*), 150 MCG ORAL DAILY, (Reported) Memantine Hcl* (Namenda*), 5 MG ORAL TWICE A DAY, (Reported) Mirtazapine* (Remeron*), 15 MG ORAL BEDTIME, (Reported) Prednisone (Prednisone), 5 MG PO DAILY Prednisone (Prednisone), 5 MG PO DAILY, (Reported) Quetiapine Fumarate* (Seroquel*), 50 MG NG Q12HR Quetiapine Fumarate* (Quetiapine Fumarate*), 50 MG ORAL Q12H, (Reported) Scheduled PRN Acetaminophen* (Acetaminophen 325MG Tablet*), 650 MG ORAL Q6H PRN for Mild Pain (Pain Scale 1-3), (Reported) Acetaminophen* (Acetaminophen 325MG Tablet*), 650 MG ORAL Q4H PRN for Pain Scale (3-5), (Reported) Acetaminophen* (Acetaminophen Extra Strength*), 1,000 MG ORAL Q4HR PRN for Moderate Breakthru Pain (5-7), (Reported) Bisacodyl (Dulcolax), 10 MG RC DAILY PRN for CONSTIPATION, (Reported) Bisacodyl (Bisacodyl), 10 MG RC DAILY PRN for Constipation, (Reported) Ipratropium Boutte 0.5MG/2.5ML (Ipratropium Boutte 0.5MG/2.5ML), 0.5 MG HHN DAILY PRN for Shortness of Breath, (Reported) Ipratropium/Albuterol Sulfate (DuoNeb 0.5-3(2.5)mg/3ml), 3 ML HHN Q4HR PRN for Shortness of Breath, (Reported) Magnesium Hydroxide* (Milk Of Magnesia*), 30 ML ORAL QHS PRN for Constipation, (Reported) Magnesium Hydroxide* (Milk Of Magnesia*), 30 ML ORAL QHS PRN for Constipation, (Reported) Na Phos,M-B/Na Phos,Di-Ba* (Fleet Enema*), 133 ML RECTAL EVERY OTHER DAY PRN for Constipation, (Reported) Miscellaneous Medications Cranberry Fruit Concentrate (Cranberry), 900 MG PO, (Reported) Patient History Limited by: medical condition History Provided By: Medical Record, PMD Healthcare decision maker Resuscitation status Advanced Directive on File Past Medical/Surgical History Past Medical/Surgical History: (1) Bradycardia (2) Hyperlipidemia (3) COVID-19 (4) Acute and chronic respiratory failure (5) Hypothyroidism (6) Hypocalcemia (7) Diabetes mellitus type 2 in nonobese (8) Dyspnea (9) Dyspnea (10) Respiratory distress (11) Hypothyroidism (12) Obese (13) Psychosis (14) Respiratory failure (15) Pneumonia (16) Anemia (17) Hypercapnic respiratory failure (18) COVID-19 (19) COPD (chronic obstructive pulmonary disease) (20) Psychosis (21) Renal failure (ARF), acute on chronic (22) CHF exacerbation (23) Hypoxia (24) Anemia (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, managed as type 2 (26) Parkinson disease (27) Hyponatremia (28) Hyperlipidemia (29) Schizophrenia (30) Hypertension Review of Systems Review of Symptoms General ROS: no weight loss or fever Psychological ROS: no depression or mood changes, no memory loss Ophthalmic ROS: no visual changes or eye irritation ENT ROS: no nasal congestion, hearing loss, dizziness Allergy and Immunology ROS: no allergic symptoms or urticaria Hematological and Lymphatic ROS: no swollen glands, unusual bleeding or bruising Endocrine ROS: no polyuria, polydipsia, weight changes, temperature intolerance Respiratory ROS: no cough, shortness of breath, or wheezing Cardiovascular ROS: no chest pain or dyspnea on exertion Gastrointestinal ROS: denies abdominal pain, bright red blood in stool. Musculoskeletal ROS: no myalgias or arthralgias Neurological ROS: no TIA or stroke symptoms Dermatological ROS: no new or changing skin lesions, rashes or pruritis unable to obtain given medical condition Physical Exam Physical Exam General appearance: ill appearing no distress, appears stated age Head: Normocephalic, without obvious abnormality, atraumatic Eyes: conjunctivae/corneas clear. PERRL, EOM's intact. Fundi benign Throat: Lips, mucosa, and tongue normal. Teeth and gums normalett Neck: supple, symmetrical, trachea midline, no adenopathy, thyroid: not enlarged, symmetric, no tenderness/mass/nodules, no carotid bruit and no JVD Lungs: dec to auscultation bilaterally ett on vent Heart: regular rate and rhythm, S1, S2 normal, no murmur, click, rub or gallop Abdomen: soft, non-tender. Bowel sounds normal. No masses, no organomegaly Extremities: extremities normal, atraumatic, no cyanosis or edema Pulses: 2+ and symmetric Skin: Skin color, texture, turgor normal. No rashes or lesions Neurologic: Grossly normal Last 24 Hour Vital Signs Date Time Temp Pulse Resp B/P (MAP) Pulse Ox O2 Delivery O2 Flow Rate FiO2 05/21/20 17:05 80 05/21/20 17:00 69 17 104/36 (58) 100 05/21/20 16:00 60 05/21/20 16:00 98.5 71 17 106/36 (59) 100 05/21/20 16:00 Mechanical Ventilator 05/21/20 15:06 70 16 100 05/21/20 15:00 72 17 98/35 (56) 100 05/21/20 14:00 70 18 95/34 (54) 100 05/21/20 13:00 74 17 105/34 (57) 100 05/21/20 12:00 40 05/21/20 12:00 Mechanical Ventilator 05/21/20 12:00 98.8 71 16 100/34 (56) 99 05/21/20 12:00 74 05/21/20 11:23 73 15 100 05/21/20 11:00 75 16 104/36 (58) 100 05/21/20 10:00 82 19 121/36 (64) 100 05/21/20 09:36 100 05/21/20 09:00 87 27 133/44 (73) 96 05/21/20 08:42 40 05/21/20 08:24 96 05/21/20 08:00 71 05/21/20 08:00 50 05/21/20 08:00 Mechanical Ventilator 05/21/20 08:00 98.6 76 19 124/34 (64) 94 05/21/20 07:02 85 23 40 05/21/20 07:00 71 16 101/33 (55) 92 05/21/20 06:30 75 20 05/21/20 06:00 80 22 123/37 (65) 95 05/21/20 05:00 78 19 121/36 (64) 94 05/21/20 04:00 50 05/21/20 04:00 76 05/21/20 04:00 98.4 84 17 137/41 (73) 100 05/21/20 04:00 Mechanical Ventilator 05/21/20 03:00 78 21 131/40 (70) 98 05/21/20 02:43 73 16 40 05/21/20 02:00 72 16 114/34 (60) 95 05/21/20 01:00 72 16 108/33 (58) 94 05/21/20 00:00 72 05/21/20 00:00 Mechanical Ventilator 05/21/20 00:00 50 05/21/20 00:00 99.0 73 17 109/37 (61) 92 05/20/20 23:00 89 16 125/46 (72) 97 05/20/20 22:50 90 17 40 05/20/20 22:00 85 21 140/48 (78) 96 05/20/20 21:00 73 16 105/32 (56) 92 05/20/20 20:56 73 22 117/34 95 05/20/20 20:26 82 23 118/51 98 05/20/20 20:00 98.9 86 18 118/51 (73) 97 05/20/20 20:00 89 05/20/20 20:00 Mechanical Ventilator 05/20/20 20:00 50 05/20/20 19:00 88 18 125/44 (71) 97 05/20/20 18:43 85 20 40 Intake and Output 05/20/20 05/21/20 19:00 07:00 Intake Total 1171.944 ml 1496.944 ml Output Total 925 ml 900 ml Balance 246.944 ml 596.944 ml IV Total 571.944 ml 896.944 ml Tube Feeding 600 ml 600 ml Output Urine Total 925 ml 900 ml Laboratory Tests Test 05/21/20 04:55 White Blood Count 7.8 K/UL (4.8-10.8) Red Blood Count 2.60 M/UL (4.20-5.40) L Hemoglobin 8.5 G/DL (12.0-16.0) L Hematocrit 25.1 % (37.0-47.0) L Mean Corpuscular Volume 96 FL (80-99) Mean Corpuscular Hemoglobin 32.5 PG (27.0-31.0) H Mean Corpuscular Hemoglobin Concent 33.8 G/DL (32.0-36.0) Red Cell Distribution Width 13.7 % (11.6-14.8) Platelet Count 233 K/UL (150-450) Mean Platelet Volume 7.8 FL (6.5-10.1) Neutrophils (%) (Auto) 80.0 % (45.0-75.0) H Lymphocytes (%) (Auto) 14.0 % (20.0-45.0) L Monocytes (%) (Auto) 5.3 % (1.0-10.0) Eosinophils (%) (Auto) 0.5 % (0.0-3.0) Basophils (%) (Auto) 0.2 % (0.0-2.0) Sodium Level 149 MMOL/L (136-145) H Potassium Level 4.3 MMOL/L (3.5-5.1) Chloride Level 113 MMOL/L (98-107) H Carbon Dioxide Level 32 MMOL/L (21-32) Anion Gap 4 mmol/L (5-15) L Blood Urea Nitrogen 35 mg/dL (7-18) H Creatinine 0.9 MG/DL (0.55-1.30) Estimat Glomerular Filtration Rate > 60 mL/min (>60) Glucose Level 139 MG/DL (74-106) H Calcium Level 8.7 MG/DL (8.5-10.1) Phosphorus Level 3.2 MG/DL (2.5-4.9) Magnesium Level 2.2 MG/DL (1.8-2.4) Total Bilirubin 0.6 MG/DL (0.2-1.0) Direct Bilirubin 0.2 MG/DL (0.0-0.3) Aspartate Amino Transf (AST/SGOT) 13 U/L (15-37) L Alanine Aminotransferase (ALT/SGPT) 18 U/L (12-78) Alkaline Phosphatase 40 U/L (46-116) L Total Protein 6.3 G/DL (6.4-8.2) L Albumin 2.6 G/DL (3.4-5.0) L Globulin 3.7 g/dL Albumin/Globulin Ratio 0.7 (1.0-2.7) L Height (Feet): 5 Height (Inches): 3.00 Weight (Pounds): 170 Medications Current Medications Medications (Trade) Dose Ordered Sig/Angie Route PRN Reason Start Time Stop Time Status Last Admin Dose Admin Acetaminophen (Tylenol) 650 mg Q6H PRN NG Fever >100.5 05/14/20 21:00 06/13/20 20:59 05/14/20 21:10 Acetaminophen (Tylenol) 650 mg Q6H PRN NG Mild Pain (Pain Scale 1-3) 05/14/20 21:00 06/13/20 20:59 05/17/20 11:06 Chlorhexidine Gluconate (Ruba-Hex 2%) 1 applic DAILY@2000 TOPIC 05/15/20 20:00 08/13/20 19:59 05/20/20 20:01 Clonidine HCl (Catapres Tab) 0.1 mg Q4H PRN ORAL sbp>170 05/11/20 17:15 08/09/20 17:14 Haloperidol Lactate (Haldol) 5 mg Q6H PRN IM Agitation 05/13/20 20:45 06/27/20 20:44 05/21/20 09:41 Levofloxacin 150 ml @ 100 mls/hr Q48H IVPB 05/20/20 12:00 05/23/20 11:59 05/20/20 11:00 Levothyroxine Sodium (Synthroid) 50 mcg DAILY@0630 ORAL 05/14/20 06:30 06/13/20 06:29 05/21/20 05:52 Lorazepam (Ativan 2mg/ml 1ml) 1 mg Q4H PRN IV For Anxiety 05/17/20 12:00 05/24/20 11:59 05/20/20 20:26 Remdesivir 100 mg/ Sodium Chloride 250 ml @ 250 mls/hr Q24H IV 05/19/20 21:00 05/22/20 21:59 05/20/20 20:59 Vancomycin HCl 250 ml @ 167.007 mls/hr Q24H IVPB 05/21/20 11:00 05/26/20 10:59 05/21/20 11:05 Vancomycin HCl (Vanco pharmacy to dose) 1 ea DAILY PRN MISC Per rx protocol 05/15/20 08:45 06/14/20 08:44 Assessment/Plan Problem List: (1) Anemia ICD Codes: D64.9 - Anemia, unspecified SNOMED: 347563324 (2) Hypercapnic respiratory failure Assessment & Plan: respiratory insufficiency requiring prolonged ventilatory support unable to wean vent safely after multiple attempts discussed with pcp. discussed with pulm discussed with patient guardian. patient unable to consent. no nok or poa. given critical care and condition not recommended to await court decision which during pandemic can take long time. medically necessary to proceed with trach in patients best interest. ICD Codes: J96.92 - Respiratory failure, unspecified with hypercapnia SNOMED: 421767937 (3) COVID-19 ICD Codes: U07.1 - COVID-19 SNOMED: 153350969 (4) COPD (chronic obstructive pulmonary disease) ICD Codes: J44.9 - Chronic obstructive pulmonary disease, unspecified SNOMED: 07708598 (5) Psychosis ICD Codes: F29 - Unspecified psychosis not due to a substance or known physiological condition SNOMED: 03843486 (6) Renal failure (ARF), acute on chronic ICD Codes: N17.9 - Acute kidney failure, unspecified; N18.9 - Chronic kidney disease, unspecified SNOMED: 604393026 (7) CHF exacerbation ICD Codes: I50.9 - Heart failure, unspecified SNOMED: 000423606, 21020231399913 (8) Hypoxia ICD Codes: R09.02 - Hypoxemia SNOMED: 623391295 (9) Hypocalcemia ICD Codes: E83.51 - Hypocalcemia SNOMED: 7729284 (10) Bradycardia ICD Codes: R00.1 - Bradycardia, unspecified SNOMED: 22688186 (11) Dyspnea ICD Codes: R06.00 - Dyspnea, unspecified SNOMED: 078485152 (12) Dyspnea ICD Codes: R06.00 - Dyspnea, unspecified SNOMED: 551718330 (13) Respiratory distress ICD Codes: R06.03 - Acute respiratory distress SNOMED: 670079033 (14) Hyperlipidemia ICD Codes: E78.5 - Hyperlipidemia, unspecified SNOMED: 75823593 (15) Hypothyroidism ICD Codes: E03.9 - Hypothyroidism, unspecified SNOMED: 53986447 (16) Hypothyroidism ICD Codes: E03.9 - Hypothyroidism, unspecified SNOMED: 20210264 (17) Obese ICD Codes: E66.9 - Obesity, unspecified SNOMED: 576054734, 615287813 (18) Psychosis ICD Codes: F29 - Unspecified psychosis not due to a substance or known physiological condition SNOMED: 82243510 (19) Respiratory failure ICD Codes: J96.90 - Respiratory failure, unspecified, unspecified whether with hypoxia or hypercapnia SNOMED: 051239021 (20) Pneumonia ICD Codes: J18.9 - Pneumonia, unspecified organism SNOMED: 041599683 (21) Acute and chronic respiratory failure ICD Codes: J96.20 - Acute and chronic respiratory failure, unspecified whether with hypoxia or hypercapnia SNOMED: 09216305 (22) Diabetes mellitus type 2 in nonobese ICD Codes: E11.9 - Type 2 diabetes mellitus without complications SNOMED: 711065355 (23) COVID-19 ICD Codes: U07.1 - COVID-19 SNOMED: 623357184 (24) Anemia ICD Codes: D64.9 - Anemia, unspecified SNOMED: 133794211 (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
--- NOTE | 2020-05-21 18:06 | Pre-Procedure Note/Attestation ---
Pre-Procedure Note/Attestation Complete Prior to Procedure Procedure Narrative: tracheostomy Indications for Procedure Pre-Operative Diagnosis: respiratory insufficiency Attestation I attest that I discussed the nature of the procedure; its benefits; risks and complications; and alternatives (and the risks and benefits of such alternatives), prior to the procedure, with the patient (or the patient's legal food products sales representative). I attest that, if there was a reasonable possibility of needing a blood transfusion, the patient (or the patient's legal food products sales representative) was given the [facility] standardized written summary, pursuant to the Mohit Emigdio Blood Safety Act ([place] Health and Safety Code # 1645, as amended). I attest that I re-evaluated the patient just prior to the surgery and that there has been no change in the patient's H&P, except as documented below: unable to wean vent safely after multiple attempts discussed with pcp. discussed with pulm discussed with patient guardian. patient unable to consent. no nok or poa. given critical care and condition not recommended to await court decision which during pandemic can take long time. medically necessary to proceed with trach in patients best interest. Renaldo Suresh May 21, 2020 18:06
[2020-05-21] MEDS: Dyna-Hex 2% Top Sol 2oz TOPIC SCH (20:01)
[2020-05-21] MEDS: Maintenance Dose:Remdesivir 100mg/NS 230ml x 4 Doses IV SCH ×2 (21:44)
--- NOTE | 2020-05-21 23:05 | Psychiatric Progress Note ---
Psychiatry Progress Note Psychiatry Progress Note Subjective the pt is lethargic on restraints Medications Current Medications Medications (Trade) Dose Ordered Sig/Angie Route PRN Reason Start Time Stop Time Status Last Admin Dose Admin Acetaminophen (Tylenol) 650 mg Q6H PRN NG Fever >100.5 05/14/20 21:00 06/13/20 20:59 05/14/20 21:10 Acetaminophen (Tylenol) 650 mg Q6H PRN NG Mild Pain (Pain Scale 1-3) 05/14/20 21:00 06/13/20 20:59 05/17/20 11:06 Chlorhexidine Gluconate (Ruba-Hex 2%) 1 applic DAILY@1999 TOPIC 05/15/20 20:00 08/13/20 19:59 05/21/20 20:01 Clonidine HCl (Catapres Tab) 0.1 mg Q4H PRN ORAL sbp>170 05/11/20 17:15 08/09/20 17:14 Haloperidol Lactate (Haldol) 5 mg Q6H PRN IM Agitation 05/13/20 20:45 06/27/20 20:44 05/21/20 09:41 Levofloxacin 150 ml @ 100 mls/hr Q48H IVPB 05/20/20 12:00 05/23/20 11:59 05/20/20 11:00 Levothyroxine Sodium (Synthroid) 50 mcg DAILY@0630 ORAL 05/14/20 06:30 06/13/20 06:29 05/21/20 05:52 Lorazepam (Ativan 2mg/ml 1ml) 1 mg Q4H PRN IV For Anxiety 05/17/20 12:00 05/24/20 11:59 05/20/20 20:26 Remdesivir 100 mg/ Sodium Chloride 250 ml @ 250 mls/hr Q24H IV 05/19/20 21:00 05/22/20 21:59 05/21/20 21:44 Vancomycin HCl 250 ml @ 167.007 mls/hr Q24H IVPB 05/21/20 11:00 05/26/20 10:59 05/21/20 11:05 Vancomycin HCl (Vanco pharmacy to dose) 1 ea DAILY PRN MISC Per rx protocol 05/15/20 08:45 06/14/20 08:44 Neurological/Psychiatric: Reports: anxiety, depressed, emotional problems Allergies: Coded Allergies: LITHIUM (Verified Allergy, Unknown, 02/07/19) Objective Data Height (Feet): 5 Height (Inches): 3.00 Weight (Pounds): 170 General Appearance: no apparent distress, lethargic Additional Comments: waxing and waning consciousness. Disoriented. Mood is neutral to agitation. Affect is flat. Thought process, there is paucity of thought process. Thought content, no suicidal or homicidal ideation. Cognition is impaired. Insight and judgment is impaired. Assessment/Plan Whittier I: Whittier I Acute toxic encephalopathy. Schizophrenia. Whittier II Deferred. Whittier III COVID-19. Whittier IV Low. Whittier V 20 PLAN: 1. Discontinue the IV Haldol. 2. Start the patient on Haldol IM. 3. The patient benefits from bilateral soft restraints. 4. Provide the patient with reality orientation. 5. Discussed with the nurse. Status: progressing, unchanged Status Narrative Whittier I Acute toxic encephalopathy. Schizophrenia. Whittier II Deferred. Whittier III COVID-19. Whittier IV Low. Whittier V 20 PLAN: 1. Discontinue the IV Haldol. 2. Start the patient on Haldol IM. 3. The patient benefits from bilateral soft restraints. 4. Provide the patient with reality orientation. 5. Discussed with the nurse. Assessment/Plan: Whittier I Acute toxic encephalopathy. Schizophrenia. Whittier II Deferred. Whittier III COVID-19. Whittier IV Low. Whittier V 20 PLAN: 1. Discontinue the IV Haldol. 2. Start the patient on Haldol IM. 3. The patient benefits from bilateral soft restraints. 4. Provide the patient with reality orientation. 5. Discussed with the nurse. Kiana Hernandez MD May 21, 2020 23:05
[2020-05-22] VITALS (24 sets, daily range): BP systolic 106–135; BP diastolic 33–46
[2020-05-22 05:53] LABS: HEMATOCRIT 23.7 % (37.0-47.0); HEMOGLOBIN 7.9 G/DL (12.0-16.0); MEAN CORPUSCULAR VOLUME 95 FL (80-99); PLATELET COUNT 207 K/UL (150-450); RED BLOOD COUNT 2.48 M/UL (4.20-5.40); RED CELL DISTRIBUTION WIDTH 13.5 % (11.6-14.8); WHITE BLOOD COUNT 6.9 K/UL (4.8-10.8)
[2020-05-22 07:16] LABS: ALANINE AMINOTRANSFERASE 17 U/L (12-78); ALBUMIN 2.5 G/DL (3.4-5.0); ALBUMIN/GLOBULIN RATIO 0.7 (1.0-2.7); ALKALINE PHOSPHATASE 36 U/L (46-116); ANION GAP 4 mmol/L (5-15); ASPARTATE AMINO TRANSFERASE 11 U/L (15-37); BILIRUBIN,DIRECT 0.1 MG/DL (0.0-0.3); BILIRUBIN,TOTAL 0.7 MG/DL (0.2-1.0); BLOOD UREA NITROGEN 38 mg/dL (7-18); CALCIUM 8.4 MG/DL (8.5-10.1); CARBON DIOXIDE 31 MMOL/L (21-32); CHLORIDE 112 MMOL/L (98-107); CREATININE 0.8 MG/DL (0.55-1.30); POTASSIUM 4.3 MMOL/L (3.5-5.1); SODIUM 147 MMOL/L (136-145)
--- NOTE | 2020-05-22 08:37 | Infectious Diseases Prog Note ---
Assessment/Plan Assessment/Plan IMPRESSION: COVID-19 disease, Acute respiratory failure, COPD, Diastolic CHF, Mitral valve regurgitation, Anemia, Parkinson disease, schizoaffective disorder, Dementia, Obstructive sleep apnea, Hypothyroidism. 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 RECOMMENDATION: Continue dexamethasone Continue Remdesivir X 1 more day Continue Levaquin & Vancomycin Subjective ROS Limited/Unobtainable: Yes Respiratory: Reports: other - self extubated herself Allergies: Coded Allergies: LITHIUM (Verified Allergy, Unknown, 02/07/19) Objective Last 24 Hour Vital Signs Date Time Temp Pulse Resp B/P (MAP) Pulse Ox O2 Delivery O2 Flow Rate FiO2 05/22/20 07:00 67 14 122/38 (66) 94 05/22/20 06:30 81 20 05/22/20 06:00 71 18 130/35 (66) 97 05/22/20 05:00 67 16 120/34 (62) 93 05/22/20 04:00 Mechanical Ventilator 05/22/20 04:00 73 05/22/20 04:00 60 05/22/20 04:00 98.4 67 18 126/36 (66) 88 05/22/20 03:00 82 22 135/42 (73) 99 05/22/20 02:47 68 15 99 Mechanical Ventilator 100 05/22/20 02:47 67 18 40 05/22/20 02:00 82 22 126/42 (70) 93 05/22/20 01:00 69 19 107/35 (59) 94 05/22/20 00:00 Mechanical Ventilator 05/22/20 00:00 66 05/22/20 00:00 60 05/22/20 00:00 98.2 69 18 108/33 (58) 95 05/21/20 23:03 70 13 40 05/21/20 23:00 68 19 116/33 (60) 98 05/21/20 22:00 68 19 101/32 (55) 95 05/21/20 21:00 70 19 111/34 (59) 95 05/21/20 20:00 60 05/21/20 20:00 Mechanical Ventilator 05/21/20 20:00 70 05/21/20 20:00 98.7 71 19 110/35 (60) 94 05/21/20 19:00 77 21 105/56 (72) 96 05/21/20 18:33 76 21 40 05/21/20 18:00 69 18 106/34 (58) 98 05/21/20 17:05 80 05/21/20 17:00 69 17 104/36 (58) 100 05/21/20 16:00 69 05/21/20 16:00 60 05/21/20 16:00 98.5 71 17 106/36 (59) 100 05/21/20 16:00 Mechanical Ventilator 05/21/20 15:06 70 16 100 05/21/20 15:00 72 17 98/35 (56) 100 05/21/20 14:00 70 18 95/34 (54) 100 05/21/20 13:00 74 17 105/34 (57) 100 05/21/20 12:00 40 05/21/20 12:00 Mechanical Ventilator 05/21/20 12:00 98.8 71 16 100/34 (56) 99 05/21/20 12:00 74 05/21/20 11:23 73 15 100 05/21/20 11:00 75 16 104/36 (58) 100 05/21/20 10:00 82 19 121/36 (64) 100 05/21/20 09:36 100 05/21/20 09:00 87 27 133/44 (73) 96 05/21/20 08:42 40 Height (Feet): 5 Height (Inches): 3.00 Weight (Pounds): 183 HEENT: mucous membranes moist Respiratory/Chest: other - Oxygen by rebreathing mask Cardiovascular: normal rate Abdomen: soft, non tender Extremities: no edema Neurologic/Psychiatric: disoriented Laboratory Tests Test 05/22/20 04:50 White Blood Count 6.9 K/UL (4.8-10.8) Red Blood Count 2.48 M/UL (4.20-5.40) L Hemoglobin 7.9 G/DL (12.0-16.0) L Hematocrit 23.7 % (37.0-47.0) L Mean Corpuscular Volume 95 FL (80-99) Mean Corpuscular Hemoglobin 32.1 PG (27.0-31.0) H Mean Corpuscular Hemoglobin Concent 33.6 G/DL (32.0-36.0) Red Cell Distribution Width 13.5 % (11.6-14.8) Platelet Count 207 K/UL (150-450) Mean Platelet Volume 7.2 FL (6.5-10.1) Neutrophils (%) (Auto) % (45.0-75.0) Lymphocytes (%) (Auto) % (20.0-45.0) Monocytes (%) (Auto) % (1.0-10.0) Eosinophils (%) (Auto) % (0.0-3.0) Basophils (%) (Auto) % (0.0-2.0) Neutrophils % (Manual) Pending Lymphocytes % (Manual) Pending Platelet Estimate Pending Platelet Morphology Pending Sodium Level 147 MMOL/L (136-145) H Potassium Level 4.3 MMOL/L (3.5-5.1) Chloride Level 112 MMOL/L (98-107) H Carbon Dioxide Level 31 MMOL/L (21-32) Anion Gap 4 mmol/L (5-15) L Blood Urea Nitrogen 38 mg/dL (7-18) H Creatinine 0.8 MG/DL (0.55-1.30) Estimat Glomerular Filtration Rate > 60 mL/min (>60) Glucose Level 121 MG/DL (74-106) H Calcium Level 8.4 MG/DL (8.5-10.1) L Total Bilirubin 0.7 MG/DL (0.2-1.0) Direct Bilirubin 0.1 MG/DL (0.0-0.3) Aspartate Amino Transf (AST/SGOT) 11 U/L (15-37) L Alanine Aminotransferase (ALT/SGPT) 17 U/L (12-78) Alkaline Phosphatase 36 U/L (46-116) L Total Protein 6.2 G/DL (6.4-8.2) L Albumin 2.5 G/DL (3.4-5.0) L Globulin 3.7 g/dL Albumin/Globulin Ratio 0.7 (1.0-2.7) L Current Medications Medications (Trade) Dose Ordered Sig/Angie Route PRN Reason Start Time Stop Time Status Last Admin Dose Admin Acetaminophen (Tylenol) 650 mg Q6H PRN NG Fever >100.5 05/14/20 21:00 06/13/20 20:59 05/14/20 21:10 Acetaminophen (Tylenol) 650 mg Q6H PRN NG Mild Pain (Pain Scale 1-3) 05/14/20 21:00 06/13/20 20:59 05/17/20 11:06 Chlorhexidine Gluconate (Ruba-Hex 2%) 1 applic DAILY@2000 TOPIC 05/15/20 20:00 08/13/20 19:59 05/21/20 20:01 Clonidine HCl (Catapres Tab) 0.1 mg Q4H PRN ORAL sbp>170 05/11/20 17:15 08/09/20 17:14 Haloperidol Lactate (Haldol) 5 mg Q6H PRN IM Agitation 05/13/20 20:45 06/27/20 20:44 05/21/20 09:41 Levofloxacin 150 ml @ 100 mls/hr Q48H IVPB 05/20/20 12:00 05/23/20 11:59 05/20/20 11:00 Levothyroxine Sodium (Synthroid) 50 mcg DAILY@0630 ORAL 05/14/20 06:30 06/13/20 06:29 05/22/20 05:41 Lorazepam (Ativan 2mg/ml 1ml) 1 mg Q4H PRN IV For Anxiety 05/17/20 12:00 05/24/20 11:59 05/20/20 20:26 Remdesivir 100 mg/ Sodium Chloride 250 ml @ 250 mls/hr Q24H IV 05/19/20 21:00 05/22/20 21:59 05/21/20 21:44 Vancomycin HCl 250 ml @ 167.007 mls/hr Q24H IVPB 05/21/20 11:00 05/26/20 10:59 05/21/20 11:05 Vancomycin HCl ([facility] pharmacy to dose) 1 ea DAILY PRN MISC Per rx protocol 05/15/20 08:45 06/14/20 08:44 Lei Chan MD May 22, 2020 08:37
--- NOTE | 2020-05-22 10:35 | Cardiac Electrophysiology PN ---
Assessment/Plan Assessment/Plan 1. Covid PNA, respiratory failure. Self extubated today 2. History of COPD. 3. Hypotension. Off Dopamine. EF 55% 4. Bradycardia resolved and is off Dopamine 5. Schizophrenia and psychosis. DW RN Subjective Subjective Self extubated this am in ICU in Covid isolation VSS but getting tachypnic Objective Last 24 Hour Vital Signs Date Time Temp Pulse Resp B/P (MAP) Pulse Ox O2 Delivery O2 Flow Rate FiO2 05/22/20 08:00 79 20 121/38 (65) 98 05/22/20 08:00 Mechanical Ventilator 05/22/20 08:00 100 05/22/20 07:00 67 14 122/38 (66) 94 05/22/20 06:30 81 20 05/22/20 06:00 71 18 130/35 (66) 97 05/22/20 05:00 67 16 120/34 (62) 93 05/22/20 04:00 Mechanical Ventilator 05/22/20 04:00 73 05/22/20 04:00 60 05/22/20 04:00 98.4 67 18 126/36 (66) 88 05/22/20 03:00 82 22 135/42 (73) 99 05/22/20 02:47 68 15 99 Mechanical Ventilator 100 05/22/20 02:47 67 18 40 05/22/20 02:00 82 22 126/42 (70) 93 05/22/20 01:00 69 19 107/35 (59) 94 05/22/20 00:00 Mechanical Ventilator 05/22/20 00:00 66 05/22/20 00:00 60 05/22/20 00:00 98.2 69 18 108/33 (58) 95 05/21/20 23:03 70 13 40 05/21/20 23:00 68 19 116/33 (60) 98 05/21/20 22:00 68 19 101/32 (55) 95 05/21/20 21:00 70 19 111/34 (59) 95 05/21/20 20:00 60 05/21/20 20:00 Mechanical Ventilator 05/21/20 20:00 70 05/21/20 20:00 98.7 71 19 110/35 (60) 94 05/21/20 19:00 77 21 105/56 (72) 96 05/21/20 18:33 76 21 40 05/21/20 18:00 69 18 106/34 (58) 98 05/21/20 17:05 80 05/21/20 17:00 69 17 104/36 (58) 100 05/21/20 16:00 69 05/21/20 16:00 60 05/21/20 16:00 98.5 71 17 106/36 (59) 100 05/21/20 16:00 Mechanical Ventilator 05/21/20 15:06 70 16 100 05/21/20 15:00 72 17 98/35 (56) 100 05/21/20 14:00 70 18 95/34 (54) 100 05/21/20 13:00 74 17 105/34 (57) 100 05/21/20 12:00 40 05/21/20 12:00 Mechanical Ventilator 05/21/20 12:00 98.8 71 16 100/34 (56) 99 05/21/20 12:00 74 05/21/20 11:23 73 15 100 05/21/20 11:00 75 16 104/36 (58) 100 Intake and Output 05/21/20 05/22/20 19:00 07:00 Intake Total 750.000 ml 450 ml Output Total 895 ml 1320 ml Balance -145.000 ml -870 ml IV Total 250.000 ml 250 ml Tube Feeding 500 ml 200 ml Output Urine Total 895 ml 1320 ml Laboratory Tests Test 05/22/20 04:50 05/22/20 08:30 White Blood Count 6.9 K/UL (4.8-10.8) Red Blood Count 2.48 M/UL (4.20-5.40) L Hemoglobin 7.9 G/DL (12.0-16.0) L Hematocrit 23.7 % (37.0-47.0) L Mean Corpuscular Volume 95 FL (80-99) Mean Corpuscular Hemoglobin 32.1 PG (27.0-31.0) H Mean Corpuscular Hemoglobin Concent 33.6 G/DL (32.0-36.0) Red Cell Distribution Width 13.5 % (11.6-14.8) Platelet Count 207 K/UL (150-450) Mean Platelet Volume 7.2 FL (6.5-10.1) Neutrophils (%) (Auto) % (45.0-75.0) Lymphocytes (%) (Auto) % (20.0-45.0) Monocytes (%) (Auto) % (1.0-10.0) Eosinophils (%) (Auto) % (0.0-3.0) Basophils (%) (Auto) % (0.0-2.0) Differential Total Cells Counted 100 Neutrophils % (Manual) 77 % (45-75) H Lymphocytes % (Manual) 20 % (20-45) Monocytes % (Manual) 3 % (1-10) Eosinophils % (Manual) 0 % (0-3) Basophils % (Manual) 0 % (0-2) Band Neutrophils 0 % (0-8) Platelet Estimate Adequate Platelet Morphology Normal Hypochromasia 3+ Sodium Level 147 MMOL/L (136-145) H Potassium Level 4.3 MMOL/L (3.5-5.1) Chloride Level 112 MMOL/L (98-107) H Carbon Dioxide Level 31 MMOL/L (21-32) Anion Gap 4 mmol/L (5-15) L Blood Urea Nitrogen 38 mg/dL (7-18) H Creatinine 0.8 MG/DL (0.55-1.30) Estimat Glomerular Filtration Rate > 60 mL/min (>60) Glucose Level 121 MG/DL (74-106) H Calcium Level 8.4 MG/DL (8.5-10.1) L Total Bilirubin 0.7 MG/DL (0.2-1.0) Direct Bilirubin 0.1 MG/DL (0.0-0.3) Aspartate Amino Transf (AST/SGOT) 11 U/L (15-37) L Alanine Aminotransferase (ALT/SGPT) 17 U/L (12-78) Alkaline Phosphatase 36 U/L (46-116) L Total Protein 6.2 G/DL (6.4-8.2) L Albumin 2.5 G/DL (3.4-5.0) L Globulin 3.7 g/dL Albumin/Globulin Ratio 0.7 (1.0-2.7) L Arterial Blood pH 7.444 (7.350-7.450) Arterial Blood Partial Pressure CO2 49.7 mmHg (35.0-45.0) H Arterial Blood Partial Pressure O2 163.5 mmHg (75.0-100.0) H Arterial Blood HCO3 33.3 mmol/L (22.0-26.0) H Arterial Blood Oxygen Saturation 97.7 % (95-100) Arterial Blood Base Excess 8.2 (-2-2) H Raphael Test Positive Objective HEAD AND NECK: Positive JVD. LUNGS: Decreased breath sounds. CARDIOVASCULAR: Regular S1 and S2 with no gallop. ABDOMEN: Obese. EXTREMITIES: Bilateral 2+ pitting edema. Cameron Davies MD May 22, 2020 10:35
--- NOTE | 2020-05-22 11:50 | Pulmonology Progress Note ---
Subjective ROS Limited/Unobtainable: Yes Interval Events: Self extubated this AM; restless; ABG adequate Constitutional: Denies: fever HEENT: Repors: no symptoms Respiratory: Reports: no symptoms Cardiovascular: Reports: no symptoms Gastrointestinal/Abdominal: Reports: no symptoms Genitourinary: Reports: no symptoms Allergies: Coded Allergies: LITHIUM (Verified Allergy, Unknown, 02/07/19) Objective Last 24 Hour Vital Signs Date Time Temp Pulse Resp B/P (MAP) Pulse Ox O2 Delivery O2 Flow Rate FiO2 05/22/20 08:00 79 20 121/38 (65) 98 05/22/20 08:00 Mechanical Ventilator 05/22/20 08:00 100 05/22/20 07:00 67 14 122/38 (66) 94 05/22/20 06:30 81 20 05/22/20 06:00 71 18 130/35 (66) 97 05/22/20 05:00 67 16 120/34 (62) 93 05/22/20 04:00 Mechanical Ventilator 05/22/20 04:00 73 05/22/20 04:00 60 05/22/20 04:00 98.4 67 18 126/36 (66) 88 05/22/20 03:00 82 22 135/42 (73) 99 05/22/20 02:47 68 15 99 Mechanical Ventilator 100 05/22/20 02:47 67 18 40 05/22/20 02:00 82 22 126/42 (70) 93 05/22/20 01:00 69 19 107/35 (59) 94 05/22/20 00:00 Mechanical Ventilator 05/22/20 00:00 66 05/22/20 00:00 60 05/22/20 00:00 98.2 69 18 108/33 (58) 95 05/21/20 23:03 70 13 40 05/21/20 23:00 68 19 116/33 (60) 98 05/21/20 22:00 68 19 101/32 (55) 95 05/21/20 21:00 70 19 111/34 (59) 95 05/21/20 20:00 60 05/21/20 20:00 Mechanical Ventilator 05/21/20 20:00 70 05/21/20 20:00 98.7 71 19 110/35 (60) 94 05/21/20 19:00 77 21 105/56 (72) 96 05/21/20 18:33 76 21 40 05/21/20 18:00 69 18 106/34 (58) 98 05/21/20 17:05 80 05/21/20 17:00 69 17 104/36 (58) 100 05/21/20 16:00 69 05/21/20 16:00 60 05/21/20 16:00 98.5 71 17 106/36 (59) 100 05/21/20 16:00 Mechanical Ventilator 05/21/20 15:06 70 16 100 05/21/20 15:00 72 17 98/35 (56) 100 05/21/20 14:00 70 18 95/34 (54) 100 05/21/20 13:00 74 17 105/34 (57) 100 05/21/20 12:00 40 05/21/20 12:00 Mechanical Ventilator 05/21/20 12:00 98.8 71 16 100/34 (56) 99 05/21/20 12:00 74 Intake and Output 05/21/20 05/22/20 19:00 07:00 Intake Total 750.000 ml 450 ml Output Total 895 ml 1320 ml Balance -145.000 ml -870 ml IV Total 250.000 ml 250 ml Tube Feeding 500 ml 200 ml Output Urine Total 895 ml 1320 ml General Appearance: no acute distress HEENT: normocephalic Respiratory: no respiratory distress, decreased breath sounds, other - On venti lator Cardiovascular: normal rate Abdomen: soft, non tender, other - obese, NG tube Extremities: other - b/l 2+ pitting edema Neurologic: disoriented Laboratory Tests 05/22/20 04:50: White Blood Count 6.9, Red Blood Count 2.48L, Hemoglobin 7.9L, Hematocrit 23.7L, Mean Corpuscular Volume 95, Mean Corpuscular Hemoglobin 32.1H, Mean Corpuscular Hemoglobin Concent 33.6, Red Cell Distribution Width 13.5, Platelet Count 207, Mean Platelet Volume 7.2, Neutrophils (%) (Auto) , Lymphocytes (%) (Auto) , Monocytes (%) (Auto) , Eosinophils (%) (Auto) , Basophils (%) (Auto) , Diff erential Total Cells Counted 100, Neutrophils % (Manual) 77H, Lymphocytes % (Manual) 20, Monocytes % (Manual) 3, Eosinophils % (Manual) 0, Basophils % (Manual) 0, Band Neutrophils 0, Platelet Estimate Adequate, Platelet Morphology Normal, Hypochromasia 3+, Sodium Level 147H, Potassium Level 4.3, Chloride Level 112H, Carbon Dioxide Level 31, Anion Gap 4L, Blood Urea Nitrogen 38H, Creatinine 0.8, Estimat Glomerular Filtration Rate > 60, Glucose Level 121H, Calcium Level 8.4L, Total Bilirubin 0.7, Direct Bilirubin 0.1, Aspartate Amino Transf (AST/SGOT) 11L, Alanine Aminotransferase (ALT/SGPT) 17, Alkaline Phosphatase 36L , Total Protein 6.2L, Albumin 2.5L, Globulin 3.7, Albumin/Globulin Ratio 0.7L 05/22/20 08:30: Arterial Blood pH 7.444, Arterial Blood Partial Pressure CO2 49.7H, Arterial Blood Partial Pressure O2 163.5H, Arterial Blood HCO3 33.3H, Arterial Blood Oxygen Saturation 97.7, Arterial Blood Base Excess 8.2H, Raphael Test Positive 05/22/20 10:30: Vancomycin Level Trough [Pending] Current Medications Medications (Trade) Dose Ordered Sig/Angie Route PRN Reason Start Time Stop Time Status Last Admin Dose Admin Acetaminophen (Tylenol) 650 mg Q6H PRN NG Fever >100.5 05/14/20 21:00 06/13/20 20:59 05/14/20 21:10 Acetaminophen (Tylenol) 650 mg Q6H PRN NG Mild Pain (Pain Scale 1-3) 05/14/20 21:00 06/13/20 20:59 05/17/20 11:06 Chlorhexidine Gluconate (Ruba-Hex 2%) 1 applic DAILY@1999 TOPIC 05/15/20 20:00 08/13/20 19:59 05/21/20 20:01 Clonidine HCl (Catapres Tab) 0.1 mg Q4H PRN ORAL sbp>170 05/11/20 17:15 08/09/20 17:14 Haloperidol Lactate (Haldol) 5 mg Q6H PRN IM Agitation 05/13/20 20:45 06/27/20 20:44 05/21/20 09:41 Levofloxacin 150 ml @ 100 mls/hr Q48H IVPB 05/20/20 12:00 05/27/20 11:59 05/20/20 11:00 Levothyroxine Sodium (Synthroid) 50 mcg DAILY@0630 ORAL 05/14/20 06:30 06/13/20 06:29 05/22/20 05:41 Lorazepam (Ativan 2mg/ml 1ml) 1 mg Q4H PRN IV For Anxiety 05/17/20 12:00 05/24/20 11:59 05/20/20 20:26 Remdesivir 100 mg/ Sodium Chloride 250 ml @ 250 mls/hr Q24H IV 05/19/20 21:00 05/22/20 21:59 05/21/20 21:44 Vancomycin HCl 250 ml @ 167.007 mls/hr Q24H IVPB 05/21/20 11:00 05/26/20 10:59 05/21/20 11:05 Vancomycin HCl (Vanco pharmacy to dose) 1 ea DAILY PRN MISC Per rx protocol 05/15/20 08:45 06/14/20 08:44 Assessment/Plan Assessment/Plan 1. Bilateral COVID-19 multilobar pneumonia. - s/p self-extubation - Afebrile - Continue Azithromycin, Ceftriaxone, dexamethasone - On remdesivir 2. Hx of COPD. 3. Schizophrenia/psychosis - On haloperidol 4. Hypoxia. - Now extubated - Will monitor 5. Anemia - stable DVT ppx Time spent for this case was 31 minutes Sincere Myers MD May 22, 2020 11:50
[2020-05-22] MEDS: D5 1/2NS 1,000 ML IV SCH (12:16)
--- NOTE | 2020-05-22 12:26 | Nephrology Progress Note ---
Assessment/Plan Problem List: (1) Renal failure (ARF), acute on chronic (2) Hypercapnic respiratory failure (3) CHF exacerbation Assessment Azotemia/renal failure Acute respiratory failure most likely secondary to CHF, on mechanical ventilation History of COPD Hypertension Hyperlipemia Schizophrenia/psychosis Plan May 22: Now extubated on nonrebreathing mask. Labs reviewed. Renal parameters stable. Abnormal electrolytes addressed. Discussed with RN. May 21: Remains intubated. Labs reviewed. Abnormal electrolytes addressed. Discussed with RN. May 20: Remains intubated. Abnormal electrolyte noted on today's lab results and addressed. Continue per consultants. May 19: Patient remains intubated. Labs reviewed. Abnormal electrolytes addressed. Continue per current management. May 18: Patient seen in ICU. Remains intubated. Weaning is being tried. Discussed with RN. Labs reviewed. Abnormal electrolyte addressed. Continue per consultants. May 17: Labs reviewed. Remains intubated. Stable from renal standpoint of view. Continue weaning. Discussed with RN. May 16: Labs reviewed. Remains intubated. Remains full code. Stable from renal standpoint of view. Abnormal electrolytes addressed. May 15: Labs reviewed. Renal parameters stable. Discussed with RN. Miller taniya remains intubated on ventilator and full code. Continue per consultants. May 14: Labs reviewed. Discussed with RN. Abnormal electrolyte addressed. Continue per current management. Patient seen in ICU. Discussed with RN. Today's labs pending. Patient remains on 6 mics of dopamine. Pulmonary support Monitor intake and output Monitor electrolytes Continue per consultants Per orders Subjective ROS Limited/Unobtainable: Yes Objective Objective Last 24 Hour Vital Signs Date Time Temp Pulse Resp B/P (MAP) Pulse Ox O2 Delivery O2 Flow Rate FiO2 05/22/20 08:00 79 20 121/38 (65) 98 05/22/20 08:00 Mechanical Ventilator 05/22/20 08:00 100 05/22/20 07:00 67 14 122/38 (66) 94 05/22/20 06:30 81 20 05/22/20 06:00 71 18 130/35 (66) 97 05/22/20 05:00 67 16 120/34 (62) 93 05/22/20 04:00 Mechanical Ventilator 05/22/20 04:00 73 05/22/20 04:00 60 05/22/20 04:00 98.4 67 18 126/36 (66) 88 05/22/20 03:00 82 22 135/42 (73) 99 05/22/20 02:47 68 15 99 Mechanical Ventilator 100 05/22/20 02:47 67 18 40 05/22/20 02:00 82 22 126/42 (70) 93 05/22/20 01:00 69 19 107/35 (59) 94 05/22/20 00:00 Mechanical Ventilator 05/22/20 00:00 66 05/22/20 00:00 60 05/22/20 00:00 98.2 69 18 108/33 (58) 95 05/21/20 23:03 70 13 40 05/21/20 23:00 68 19 116/33 (60) 98 05/21/20 22:00 68 19 101/32 (55) 95 05/21/20 21:00 70 19 111/34 (59) 95 05/21/20 20:00 60 05/21/20 20:00 Mechanical Ventilator 05/21/20 20:00 70 05/21/20 20:00 98.7 71 19 110/35 (60) 94 05/21/20 19:00 77 21 105/56 (72) 96 05/21/20 18:33 76 21 40 05/21/20 18:00 69 18 106/34 (58) 98 05/21/20 17:05 80 05/21/20 17:00 69 17 104/36 (58) 100 05/21/20 16:00 69 05/21/20 16:00 60 05/21/20 16:00 98.5 71 17 106/36 (59) 100 05/21/20 16:00 Mechanical Ventilator 05/21/20 15:06 70 16 100 05/21/20 15:00 72 17 98/35 (56) 100 05/21/20 14:00 70 18 95/34 (54) 100 05/21/20 13:00 74 17 105/34 (57) 100 Intake and Output 05/21/20 05/22/20 19:00 07:00 Intake Total 750.000 ml 450 ml Output Total 895 ml 1320 ml Balance -145.000 ml -870 ml IV Total 250.000 ml 250 ml Tube Feeding 500 ml 200 ml Output Urine Total 895 ml 1320 ml Current Medications Medications (Trade) Dose Ordered Sig/Angie Route PRN Reason Start Time Stop Time Status Last Admin Dose Admin Acetaminophen (Tylenol) 650 mg Q6H PRN NG Fever >100.5 05/14/20 21:00 06/13/20 20:59 05/14/20 21:10 Acetaminophen (Tylenol) 650 mg Q6H PRN NG Mild Pain (Pain Scale 1-3) 05/14/20 21:00 06/13/20 20:59 05/17/20 11:06 Chlorhexidine Gluconate (Ruba-Hex 2%) 1 applic DAILY@2000 TOPIC 05/15/20 20:00 08/13/20 19:59 05/21/20 20:01 Clonidine HCl (Catapres Tab) 0.1 mg Q4H PRN ORAL sbp>170 05/11/20 17:15 08/09/20 17:14 Dextrose/Sodium Chloride 1,000 ml @ 50 mls/hr Q20H IV 05/22/20 12:00 06/21/20 11:59 05/22/20 12:16 Haloperidol Lactate (Haldol) 5 mg Q6H PRN IM Agitation 05/13/20 20:45 06/27/20 20:44 05/21/20 09:41 Levofloxacin 150 ml @ 100 mls/hr Q48H IVPB 05/20/20 12:00 05/27/20 11:59 05/22/20 12:17 Levothyroxine Sodium (Synthroid) 50 mcg DAILY@0630 ORAL 05/14/20 06:30 06/13/20 06:29 05/22/20 05:41 Lorazepam (Ativan 2mg/ml 1ml) 1 mg Q4H PRN IV For Anxiety 05/17/20 12:00 05/24/20 11:59 05/20/20 20:26 Remdesivir 100 mg/ Sodium Chloride 250 ml @ 250 mls/hr Q24H IV 05/19/20 21:00 05/22/20 21:59 05/21/20 21:44 Vancomycin HCl 250 ml @ 167.007 mls/hr Q24H IVPB 05/21/20 11:00 05/26/20 10:59 05/22/20 12:16 Vancomycin HCl (Vanco pharmacy to dose) 1 ea DAILY PRN MISC Per rx protocol 05/15/20 08:45 06/14/20 08:44 Laboratory Tests 05/22/20 04:50: White Blood Count 6.9, Red Blood Count 2.48L, Hemoglobin 7.9L, Hematocrit 23.7L, Mean Corpuscular Volume 95, Mean Corpuscular Hemoglobin 32.1H, Mean Corpuscular Hemoglobin Concent 33.6, Red Cell Distribution Width 13.5, Platelet Count 207, Mean Platelet Volume 7.2, Neutrophils (%) (Auto) , Lymphocytes (%) (Auto) , Monocytes (%) (Auto) , Eosinophils (%) (Auto) , Basophils (%) (Auto) , Differential Total Cells Counted 100, Neutrophils % (Manual) 77H, Lymphocytes % (Manual) 20, Monocytes % (Manual) 3, Eosinophils % (Manual) 0, Basophils % (Manual) 0, Band Neutrophils 0, Platelet Estimate Adequate, Platelet Morphology Normal, Hypochromasia 3+, Sodium Level 147H, Potassium Level 4.3, Chloride Level 112H, Carbon Dioxide Level 31, Anion Gap 4L, Blood Urea Nitrogen 38H, Creatinine 0.8, Estimat Glomerular Filtration Rate > 60, Glucose Level 121H, Calcium Level 8.4L, Total Bilirubin 0.7, Direct Bilirubin 0.1, Aspartate Amino Transf (AST/SGOT) 11L, Alanine Aminotransferase (ALT/SGPT) 17, Alkaline Phosphatase 36L , Total Protein 6.2L, Albumin 2.5L, Globulin 3.7, Albumin/Globulin Ratio 0.7L 05/22/20 08:30: Arterial Blood pH 7.444, Arterial Blood Partial Pressure CO2 49.7H, Arterial Blood Partial Pressure O2 163.5H, Arterial Blood HCO3 33.3H, Arterial Blood Oxygen Saturation 97.7, Arterial Blood Base Excess 8.2H, Raphael Test Positive 05/22/20 10:30: Vancomycin Level Trough 14.9H Height (Feet): 5 Height (Inches): 3.00 Weight (Pounds): 183 General Appearance: mild distress EENT: other - Patient extubated this morning on nonrebreathing mask Cardiovascular: normal rate Respiratory/Chest: decreased breath sounds Abdomen: distended Bryan Ochoa MD May 22, 2020 12:26
--- NOTE | 2020-05-22 12:39 | General Progress Note ---
Subjective ROS Limited/Unobtainable: Yes Allergies: Coded Allergies: LITHIUM (Verified Allergy, Unknown, 02/07/19) Objective Last 24 Hour Vital Signs Date Time Temp Pulse Resp B/P (MAP) Pulse Ox O2 Delivery O2 Flow Rate FiO2 05/22/20 08:00 79 20 121/38 (65) 98 05/22/20 08:00 Mechanical Ventilator 05/22/20 08:00 100 05/22/20 07:00 67 14 122/38 (66) 94 05/22/20 06:30 81 20 05/22/20 06:00 71 18 130/35 (66) 97 05/22/20 05:00 67 16 120/34 (62) 93 05/22/20 04:00 Mechanical Ventilator 05/22/20 04:00 73 05/22/20 04:00 60 05/22/20 04:00 98.4 67 18 126/36 (66) 88 05/22/20 03:00 82 22 135/42 (73) 99 05/22/20 02:47 68 15 99 Mechanical Ventilator 100 05/22/20 02:47 67 18 40 05/22/20 02:00 82 22 126/42 (70) 93 05/22/20 01:00 69 19 107/35 (59) 94 05/22/20 00:00 Mechanical Ventilator 05/22/20 00:00 66 05/22/20 00:00 60 05/22/20 00:00 98.2 69 18 108/33 (58) 95 05/21/20 23:03 70 13 40 05/21/20 23:00 68 19 116/33 (60) 98 05/21/20 22:00 68 19 101/32 (55) 95 05/21/20 21:00 70 19 111/34 (59) 95 05/21/20 20:00 60 05/21/20 20:00 Mechanical Ventilator 05/21/20 20:00 70 05/21/20 20:00 98.7 71 19 110/35 (60) 94 05/21/20 19:00 77 21 105/56 (72) 96 05/21/20 18:33 76 21 40 05/21/20 18:00 69 18 106/34 (58) 98 05/21/20 17:05 80 05/21/20 17:00 69 17 104/36 (58) 100 05/21/20 16:00 69 05/21/20 16:00 60 05/21/20 16:00 98.5 71 17 106/36 (59) 100 05/21/20 16:00 Mechanical Ventilator 05/21/20 15:06 70 16 100 05/21/20 15:00 72 17 98/35 (56) 100 05/21/20 14:00 70 18 95/34 (54) 100 05/21/20 13:00 74 17 105/34 (57) 100 Intake and Output 05/21/20 05/22/20 19:00 07:00 Intake Total 750.000 ml 450 ml Output Total 895 ml 1320 ml Balance -145.000 ml -870 ml IV Total 250.000 ml 250 ml Tube Feeding 500 ml 200 ml Output Urine Total 895 ml 1320 ml Laboratory Tests 05/22/20 04:50: White Blood Count 6.9, Red Blood Count 2.48L, Hemoglobin 7.9L, Hematocrit 23.7L, Mean Corpuscular Volume 95, Mean Corpuscular Hemoglobin 32.1H, Mean Corpuscular Hemoglobin Concent 33.6, Red Cell Distribution Width 13.5, Platelet Count 207, Mean Platelet Volume 7.2, Neutrophils (%) (Auto) , Lymphocytes (%) (Auto) , Monocytes (%) (Auto) , Eosinophils (%) (Auto) , Basophils (%) (Auto) , Differential Total Cells Counted 100, Neutrophils % (Manual) 77H, Lymphocytes % (Manual) 20, Monocytes % (Manual) 3, Eosinophils % (Manual) 0, Basophils % (Manual) 0, Band Neutrophils 0, Platelet Estimate Adequate, Platelet Morphology Normal, Hypochromasia 3+, Sodium Level 147H, Potassium Level 4.3, Chloride Level 112H, Carbon Dioxide Level 31, Anion Gap 4L, Blood Urea Nitrogen 38H, Creatinine 0.8, Estimat Glomerular Filtration Rate > 60, Glucose Level 121H, Calcium Level 8.4L, Total Bilirubin 0.7, Direct Bilirubin 0.1, Aspartate Amino Transf (AST/SGOT) 11L, Alanine Aminotransferase (ALT/SGPT) 17, Alkaline Phosphatase 36L , Total Protein 6.2L, Albumin 2.5L, Globulin 3.7, Albumin/Globulin Ratio 0.7L 05/22/20 08:30: Arterial Blood pH 7.444, Arterial Blood Partial Pressure CO2 49.7H, Arterial Blood Partial Pressure O2 163.5H, Arterial Blood HCO3 33.3H, Arterial Blood Oxygen Saturation 97.7, Arterial Blood Base Excess 8.2H, Raphael Test Positive 05/22/20 10:30: Vancomycin Level Trough 14.9H Height (Feet): 5 Height (Inches): 3.00 Weight (Pounds): 183 Assessment/Plan Problem List: (1) Anemia ICD Codes: D64.9 - Anemia, unspecified SNOMED: 163144566 (2) Hypercapnic respiratory failure ICD Codes: J96.92 - Respiratory failure, unspecified with hypercapnia SNOMED: 837630933 (3) COVID-19 ICD Codes: U07.1 - COVID-19 SNOMED: 518542586 (4) COPD (chronic obstructive pulmonary disease) ICD Codes: J44.9 - Chronic obstructive pulmonary disease, unspecified SNOMED: 05550726 (5) Psychosis ICD Codes: F29 - Unspecified psychosis not due to a substance or known physiological condition SNOMED: 04564300 (6) Hypoxia ICD Codes: R09.02 - Hypoxemia SNOMED: 174772605 (7) Renal failure (ARF), acute on chronic ICD Codes: N17.9 - Acute kidney failure, unspecified; N18.9 - Chronic kidney disease, unspecified SNOMED: 761195611 (8) CHF exacerbation ICD Codes: I50.9 - Heart failure, unspecified SNOMED: 288410234, [id number] Status: progressing, unchanged Assessment/Plan: self extubated this am on 100% non rebreather intubation per dr carter poor prognosis psychosis and anxiety copd exacerbation no wheezing covid positive pna septic shock chf Dani Perera MD May 22, 2020 12:39
--- NOTE | 2020-05-22 14:51 | Surgery Progress Note ---
Surgery Progress Note Subjective Additional Comments self extubated currently on face mask stable will monitor discussedw ith pulm Objective Last 24 Hour Vital Signs Date Time Temp Pulse Resp B/P (MAP) Pulse Ox O2 Delivery O2 Flow Rate FiO2 05/22/20 08:00 79 20 121/38 (65) 98 05/22/20 08:00 Mechanical Ventilator 05/22/20 08:00 100 05/22/20 07:00 67 14 122/38 (66) 94 05/22/20 06:30 81 20 05/22/20 06:00 71 18 130/35 (66) 97 05/22/20 05:00 67 16 120/34 (62) 93 05/22/20 04:00 Mechanical Ventilator 05/22/20 04:00 73 05/22/20 04:00 60 05/22/20 04:00 98.4 67 18 126/36 (66) 88 05/22/20 03:00 82 22 135/42 (73) 99 05/22/20 02:47 68 15 99 Mechanical Ventilator 100 05/22/20 02:47 67 18 40 05/22/20 02:00 82 22 126/42 (70) 93 05/22/20 01:00 69 19 107/35 (59) 94 05/22/20 00:00 Mechanical Ventilator 05/22/20 00:00 66 05/22/20 00:00 60 05/22/20 00:00 98.2 69 18 108/33 (58) 95 05/21/20 23:03 70 13 40 05/21/20 23:00 68 19 116/33 (60) 98 05/21/20 22:00 68 19 101/32 (55) 95 05/21/20 21:00 70 19 111/34 (59) 95 05/21/20 20:00 60 05/21/20 20:00 Mechanical Ventilator 05/21/20 20:00 70 05/21/20 20:00 98.7 71 19 110/35 (60) 94 05/21/20 19:00 77 21 105/56 (72) 96 05/21/20 18:33 76 21 40 05/21/20 18:00 69 18 106/34 (58) 98 05/21/20 17:05 80 05/21/20 17:00 69 17 104/36 (58) 100 05/21/20 16:00 69 05/21/20 16:00 60 05/21/20 16:00 98.5 71 17 106/36 (59) 100 05/21/20 16:00 Mechanical Ventilator 05/21/20 15:06 70 16 100 05/21/20 15:00 72 17 98/35 (56) 100 I&O Intake and Output 05/21/20 05/22/20 19:00 07:00 Intake Total 750.000 ml 450 ml Output Total 895 ml 1320 ml Balance -145.000 ml -870 ml IV Total 250.000 ml 250 ml Tube Feeding 500 ml 200 ml Output Urine Total 895 ml 1320 ml Dressing: saturated Cardiovascular: RSR Respiratory: decreased breath sounds Abdomen: non-tender, present bowel sounds Extremities: no tenderness, no cyanosis Laboratory Tests Test 05/22/20 04:50 05/22/20 08:30 05/22/20 10:30 White Blood Count 6.9 K/UL (4.8-10.8) Red Blood Count 2.48 M/UL (4.20-5.40) L Hemoglobin 7.9 G/DL (12.0-16.0) L Hematocrit 23.7 % (37.0-47.0) L Mean Corpuscular Volume 95 FL (80-99) Mean Corpuscular Hemoglobin 32.1 PG (27.0-31.0) H Mean Corpuscular Hemoglobin Concent 33.6 G/DL (32.0-36.0) Red Cell Distribution Width 13.5 % (11.6-14.8) Platelet Count 207 K/UL (150-450) Mean Platelet Volume 7.2 FL (6.5-10.1) Neutrophils (%) (Auto) % (45.0-75.0) Lymphocytes (%) (Auto) % (20.0-45.0) Monocytes (%) (Auto) % (1.0-10.0) Eosinophils (%) (Auto) % (0.0-3.0) Basophils (%) (Auto) % (0.0-2.0) Differential Total Cells Counted 100 Neutrophils % (Manual) 77 % (45-75) H Lymphocytes % (Manual) 20 % (20-45) Monocytes % (Manual) 3 % (1-10) Eosinophils % (Manual) 0 % (0-3) Basophils % (Manual) 0 % (0-2) Band Neutrophils 0 % (0-8) Platelet Estimate Adequate Platelet Morphology Normal Hypochromasia 3+ Sodium Level 147 MMOL/L (136-145) H Potassium Level 4.3 MMOL/L (3.5-5.1) Chloride Level 112 MMOL/L (98-107) H Carbon Dioxide Level 31 MMOL/L (21-32) Anion Gap 4 mmol/L (5-15) L Blood Urea Nitrogen 38 mg/dL (7-18) H Creatinine 0.8 MG/DL (0.55-1.30) Estimat Glomerular Filtration Rate > 60 mL/min (>60) Glucose Level 121 MG/DL (74-106) H Calcium Level 8.4 MG/DL (8.5-10.1) L Total Bilirubin 0.7 MG/DL (0.2-1.0) Direct Bilirubin 0.1 MG/DL (0.0-0.3) Aspartate Amino Transf (AST/SGOT) 11 U/L (15-37) L Alanine Aminotransferase (ALT/SGPT) 17 U/L (12-78) Alkaline Phosphatase 36 U/L (46-116) L Total Protein 6.2 G/DL (6.4-8.2) L Albumin 2.5 G/DL (3.4-5.0) L Globulin 3.7 g/dL Albumin/Globulin Ratio 0.7 (1.0-2.7) L Arterial Blood pH 7.444 (7.350-7.450) Arterial Blood Partial Pressure CO2 49.7 mmHg (35.0-45.0) H Arterial Blood Partial Pressure O2 163.5 mmHg (75.0-100.0) H Arterial Blood HCO3 33.3 mmol/L (22.0-26.0) H Arterial Blood Oxygen Saturation 97.7 % (95-100) Arterial Blood Base Excess 8.2 (-2-2) H Raphael Test Positive Vancomycin Level Trough 14.9 ug/mL (5.0-12.0) H Plan Problems: (1) Anemia (2) Hypercapnic respiratory failure Assessment & Plan: respiratory insufficiency requiring prolonged ventilatory support unable to wean vent safely after multiple attempts discussed with pcp. discussed with pulm discussed with patient guardian. patient unable to consent. no nok or poa. given critical care and condition not recommended to await court decision which during pandemic can take long time. medically necessary to proceed with trach in patients best interest. 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
[2020-05-22] MEDS: Dyna-Hex 2% Top Sol 2oz TOPIC SCH (19:48)
--- NOTE | 2020-05-22 20:06 | Diagnostic Imaging Report ---
EXAM: XR Abdomen, 2 Views CLINICAL HISTORY: NGT TECHNIQUE: Frontal view of the abdomen/pelvis with upright view of the abdomen. COMPARISON: X-ray abdomen one view 05/17/2020 and 12/31/2019. FINDINGS: Intraperitoneal space: No free air. Gastrointestinal tract: Unremarkable. No dilation. Bones/joints: Unremarkable. Tubes, lines and devices: An enteric tube courses below the level of the diaphragm with both the tip and side-port overlying the expected region of the stomach. The tip of the presumed right femoral catheter is seen in the right pelvis. Other findings: Circumscribed densities are again seen in the right lower quadrant. IMPRESSION: An enteric tube is visualized with both the tip and side-port likely within the stomach. No acute findings in the abdomen or pelvis.
[2020-05-22] MEDS: Maintenance Dose:Remdesivir 100mg/NS 230ml x 4 Doses IV SCH ×2 (21:11)
[2020-05-23] VITALS (24 sets, daily range): BP systolic 101–119; BP diastolic 31–76
[2020-05-23 06:49] LABS: BASOPHILS % (AUTO) 0.4 % (0.0-2.0); EOSINOPHILS % (AUTO) 1.3 % (0.0-3.0); HEMATOCRIT 24.3 % (37.0-47.0); HEMOGLOBIN 8.4 G/DL (12.0-16.0); LYMPHOCYTES % (AUTO) 18.2 % (20.0-45.0); MEAN CORPUSCULAR VOLUME 94 FL (80-99); MONOCYTES % (AUTO) 5.2 % (1.0-10.0); NEUTROPHILS % (AUTO) 74.9 % (45.0-75.0); PLATELET COUNT 211 K/UL (150-450); RED CELL DISTRIBUTION WIDTH 14.8 % (11.6-14.8); WHITE BLOOD COUNT 7.4 K/UL (4.8-10.8)
[2020-05-23 06:58] LABS: ANION GAP 1 mmol/L (5-15); BLOOD UREA NITROGEN 31 mg/dL (7-18); CALCIUM 8.1 MG/DL (8.5-10.1); CARBON DIOXIDE 35 MMOL/L (21-32); CHLORIDE 110 MMOL/L (98-107); CREATININE 0.8 MG/DL (0.55-1.30); POTASSIUM 3.9 MMOL/L (3.5-5.1); SODIUM 146 MMOL/L (136-145)
[2020-05-23] MEDS: D5 1/2NS 1,000 ML IV SCH (09:23)
--- NOTE | 2020-05-23 10:15 | Nephrology Progress Note ---
Assessment/Plan Problem List: (1) Renal failure (ARF), acute on chronic (2) Hypercapnic respiratory failure (3) CHF exacerbation Assessment Azotemia/renal failure Acute respiratory failure most likely secondary to CHF, on mechanical ventilation History of COPD Hypertension Hyperlipemia Schizophrenia/psychosis Plan May 23: Continues to be extubated. On nonrebreathing mask. Labs reviewed. Renal parameters stable. Discussed with RN. Continue per current management. May 22: Now extubated on nonrebreathing mask. Labs reviewed. Renal parameters stable. Abnormal electrolytes addressed. Discussed with RN. May 21: Remains intubated. Labs reviewed. Abnormal electrolytes addressed. Discussed with RN. May 20: Remains intubated. Abnormal electrolyte noted on today's lab results and addressed. Continue per consultants. May 19: Patient remains intubated. Labs reviewed. Abnormal electrolytes addressed. Continue per current management. May 18: Patient seen in ICU. Remains intubated. Weaning is being tried. Discussed with RN. Labs reviewed. Abnormal electrolyte addressed. Continue per consultants. May 17: Labs reviewed. Remains intubated. Stable from renal standpoint of view. Continue weaning. Discussed with RN. May 16: Labs reviewed. Remains intubated. Remains full code. Stable from renal standpoint of view. Abnormal electrolytes addressed. May 15: Labs reviewed. Renal parameters stable. Discussed with RN. Patient remains intubated on ventilator and full code. Continue per consultants. May 14: Labs reviewed. Discussed with RN. Abnormal electrolyte addressed. Continue per current management. Patient seen in ICU. Discussed with RN. Today's labs pending. Patient remains on 6 mics of dopamine. Pulmonary support Monitor intake and output Monitor electrolytes Continue per consultants Per orders Subjective ROS Limited/Unobtainable: No Constitutional: Reports: malaise Objective Objective Last 24 Hour Vital Signs Date Time Temp Pulse Resp B/P (MAP) Pulse Ox O2 Delivery O2 Flow Rate FiO2 05/23/20 08:35 98 Non-Rebreather 15.0 100 05/23/20 08:00 96.8 69 16 119/34 (62) 100 05/23/20 07:00 75 21 119/43 (68) 100 05/23/20 06:00 74 17 114/33 (60) 100 05/23/20 05:00 72 18 108/33 (58) 99 05/23/20 04:00 Non-Rebreather 15.0 12/11/20 04:00 100 05/23/20 04:00 98.2 74 21 110/31 (57) 98 05/23/20 03:02 77 05/23/20 03:00 75 17 110/33 (58) 100 05/23/20 02:00 68 21 112/35 (60) 100 05/23/20 01:00 65 25 111/33 (59) 100 05/23/20 00:00 98.2 70 25 114/37 (62) 97 05/23/20 00:00 100 05/23/20 00:00 Non-Rebreather 15.0 05/22/20 23:00 72 21 106/35 (58) 96 05/22/20 22:59 73 05/22/20 22:00 71 17 110/35 (60) 100 05/22/20 21:00 72 23 111/34 (59) 97 05/22/20 20:00 Non-Rebreather 15.0 05/22/20 20:00 98.1 67 13 112/37 (62) 100 05/22/20 20:00 100 05/22/20 19:46 100 Non-Rebreather 15.0 100 05/22/20 19:23 78 05/22/20 19:00 72 14 118/35 (62) 100 05/22/20 18:00 74 16 116/37 (63) 100 05/22/20 17:00 98.2 74 19 107/35 (59) 100 05/22/20 16:00 Non-Rebreather 15.0 05/22/20 16:00 80 05/22/20 16:00 100 05/22/20 16:00 74 17 114/36 (62) 100 05/22/20 15:00 73 19 113/46 (68) 100 05/22/20 14:00 75 18 115/37 (63) 100 05/22/20 13:00 71 19 128/42 (70) 100 05/22/20 12:00 71 05/22/20 12:00 98.6 74 16 110/37 (61) 99 05/22/20 12:00 Non-Rebreather 15.0 05/22/20 12:00 100 05/22/20 11:00 75 21 118/34 (62) 99 Intake and Output 05/22/20 05/23/20 19:00 07:00 Intake Total 750.000 ml 850 ml Output Total 1125 ml 925 ml Balance -375.000 ml -75 ml IV Total 750.000 ml 850 ml Output Urine Total 1125 ml 925 ml Laboratory Tests 05/22/20 10:30: Vancomycin Level Trough 14.9H 05/23/20 05:00: White Blood Count 7.4, Red Blood Count 2.60L, Hemoglobin 8.4L, Hematocrit 24.3L, Mean Corpuscular Volume 94, Mean Corpuscular Hemoglobin 32.3H, Mean Corpuscular Hemoglobin Concent 34.4, Red Cell Distribution Width 14.8, Platelet Count 211, Mean Platelet Volume 6.6, Neutrophils (%) (Auto) 74.9, Lymphocytes (%) (Auto) 18.2L, Monocytes (%) (Auto) 5.2, Eosinophils (%) (Auto) 1.3, Basophils (%) (Auto) 0.4, Sodium Level 146H, Potassium Level 3.9, Chloride Level 110H, Carbon Dioxide Level 35H, Anion Gap 1L, Blood Urea Nitrogen 31H, Creatinine 0.8, Estimat Glomerular Filtration Rate > 60, Glucose Level 87, Calcium Level 8.1L 05/23/20 09:01: Arterial Blood pH 7.417, Arterial Blood Partial Pressure CO2 47.7H, Arterial Blood Partial Pressure O2 107.0H, Arterial Blood HCO3 30.0H, Arterial Blood Oxygen Saturation 97.3, Arterial Blood Base Excess 4.9H, Raphael Test Positive Height (Feet): 5 Height (Inches): 3.00 Weight (Pounds): 183 General Appearance: no apparent distress EENT: other - On nonrebreather mask Cardiovascular: normal rate Respiratory/Chest: decreased breath sounds Abdomen: distended Bryan Ochoa MD May 23, 2020 10:15
--- NOTE | 2020-05-23 10:44 | Infectious Diseases Prog Note ---
Assessment/Plan Assessment/Plan IMPRESSION: COVID-19 disease, Acute respiratory failure, COPD, Diastolic CHF, Mitral valve regurgitation, Anemia, Parkinson disease, schizoaffective disorder, Dementia, Obstructive sleep apnea, Hypothyroidism. 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 RECOMMENDATION: Finished dexamethasone & Remdesivir course Discontinue Levaquin & Vancomycin Subjective ROS Limited/Unobtainable: Yes Constitutional: Denies: fever Allergies: Coded Allergies: LITHIUM (Verified Allergy, Unknown, 02/07/19) Objective Last 24 Hour Vital Signs Date Time Temp Pulse Resp B/P (MAP) Pulse Ox O2 Delivery O2 Flow Rate FiO2 05/23/20 09:15 Venturi Mask 14.0 55 05/23/20 09:00 69 18 105/37 (59) 96 05/23/20 08:35 98 Non-Rebreather 15.0 100 05/23/20 08:00 96.8 69 16 119/34 (62) 100 05/23/20 07:00 75 21 119/43 (68) 100 05/23/20 06:00 74 17 114/33 (60) 100 05/23/20 05:00 72 18 108/33 (58) 99 05/23/20 04:00 Non-Rebreather 15.0 05/23/20 04:00 100 05/23/20 04:00 98.2 74 21 110/31 (57) 98 05/23/20 03:02 77 05/23/20 03:00 75 17 110/33 (58) 100 05/23/20 02:00 68 21 112/35 (60) 100 05/23/20 01:00 65 25 111/33 (59) 100 05/23/20 00:00 98.2 70 25 114/37 (62) 97 05/23/20 00:00 100 05/23/20 00:00 Non-Rebreather 15.0 05/22/20 23:00 72 21 106/35 (58) 96 05/22/20 22:59 73 05/22/20 22:00 71 17 110/35 (60) 100 05/22/20 21:00 72 23 111/34 (59) 97 05/22/20 20:00 Non-Rebreather 15.0 05/22/20 20:00 98.1 67 13 112/37 (62) 100 05/22/20 20:00 100 05/22/20 19:46 100 Non-Rebreather 15.0 100 05/22/20 19:23 78 05/22/20 19:00 72 14 118/35 (62) 100 05/22/20 18:00 74 16 116/37 (63) 100 05/22/20 17:00 98.2 74 19 107/35 (59) 100 05/22/20 16:00 Non-Rebreather 15.0 05/22/20 16:00 80 05/22/20 16:00 100 05/22/20 16:00 74 17 114/36 (62) 100 05/22/20 15:00 73 19 113/46 (68) 100 05/22/20 14:00 75 18 115/37 (63) 100 05/22/20 13:00 71 19 128/42 (70) 100 05/22/20 12:00 71 05/22/20 12:00 98.6 74 16 110/37 (61) 99 05/22/20 12:00 Non-Rebreather 15.0 05/22/20 12:00 100 05/22/20 11:00 75 21 118/34 (62) 99 Height (Feet): 5 Height (Inches): 3.00 Weight (Pounds): 183 General Appearance: no acute distress HEENT: mucous membranes moist Respiratory/Chest: other - oxygen by mask Cardiovascular: normal rate Abdomen: soft, non tender Extremities: no edema Neurologic/Psychiatric: alert, responsive, disoriented, other - on restraint Laboratory Tests Test 05/23/20 05:00 05/23/20 09:01 White Blood Count 7.4 K/UL (4.8-10.8) Red Blood Count 2.60 M/UL (4.20-5.40) L Hemoglobin 8.4 G/DL (12.0-16.0) L Hematocrit 24.3 % (37.0-47.0) L Mean Corpuscular Volume 94 FL (80-99) Mean Corpuscular Hemoglobin 32.3 PG (27.0-31.0) H Mean Corpuscular Hemoglobin Concent 34.4 G/DL (32.0-36.0) Red Cell Distribution Width 14.8 % (11.6-14.8) Platelet Count 211 K/UL (150-450) Mean Platelet Volume 6.6 FL (6.5-10.1) Neutrophils (%) (Auto) 74.9 % (45.0-75.0) Lymphocytes (%) (Auto) 18.2 % (20.0-45.0) L Monocytes (%) (Auto) 5.2 % (1.0-10.0) Eosinophils (%) (Auto) 1.3 % (0.0-3.0) Basophils (%) (Auto) 0.4 % (0.0-2.0) Sodium Level 146 MMOL/L (136-145) H Potassium Level 3.9 MMOL/L (3.5-5.1) Chloride Level 110 MMOL/L (98-107) H Carbon Dioxide Level 35 MMOL/L (21-32) H Anion Gap 1 mmol/L (5-15) L Blood Urea Nitrogen 31 mg/dL (7-18) H Creatinine 0.8 MG/DL (0.55-1.30) Estimat Glomerular Filtration Rate > 60 mL/min (>60) Glucose Level 87 MG/DL (74-106) Calcium Level 8.1 MG/DL (8.5-10.1) L Arterial Blood pH 7.417 (7.350-7.450) Arterial Blood Partial Pressure CO2 47.7 mmHg (35.0-45.0) H Arterial Blood Partial Pressure O2 107.0 mmHg (75.0-100.0) H Arterial Blood HCO3 30.0 mmol/L (22.0-26.0) H Arterial Blood Oxygen Saturation 97.3 % (95-100) Arterial Blood Base Excess 4.9 (-2-2) H Raphael Test Positive Current Medications Medications (Trade) Dose Ordered Sig/Angie Route PRN Reason Start Time Stop Time Status Last Admin Dose Admin Acetaminophen (Tylenol) 650 mg Q6H PRN NG Fever >100.5 05/14/20 21:00 06/13/20 20:59 05/14/20 21:10 Acetaminophen (Tylenol) 650 mg Q6H PRN NG Mild Pain (Pain Scale 1-3) 05/14/20 21:00 06/13/20 20:59 05/17/20 11:06 Chlorhexidine Gluconate (Ruba-Hex 2%) 1 applic DAILY@1999 TOPIC 05/15/20 20:00 08/13/20 19:59 05/22/20 19:48 Clonidine HCl (Catapres Tab) 0.1 mg Q4H PRN ORAL sbp>170 05/11/20 17:15 08/09/20 17:14 Dextrose/Sodium Chloride 1,000 ml @ 50 mls/hr Q20H IV 05/22/20 12:00 06/21/20 11:59 05/23/20 09:23 Haloperidol Lactate (Haldol) 5 mg Q6H PRN IM Agitation 05/13/20 20:45 06/27/20 20:44 05/21/20 09:41 Levofloxacin 150 ml @ 100 mls/hr Q48H IVPB 05/20/20 12:00 05/27/20 11:59 05/22/20 12:17 Levothyroxine Sodium (Synthroid) 50 mcg DAILY@0630 ORAL 05/14/20 06:30 06/13/20 06:29 05/23/20 05:44 Lorazepam (Ativan 2mg/ml 1ml) 1 mg Q4H PRN IV For Anxiety 05/17/20 12:00 05/24/20 11:59 05/20/20 20:26 Vancomycin HCl 250 ml @ 167.007 mls/hr Q24H IVPB 05/21/20 11:00 05/26/20 10:59 05/22/20 12:16 Vancomycin HCl ([facility] pharmacy to dose) 1 ea DAILY PRN MISC Per rx protocol 05/15/20 08:45 06/14/20 08:44 Lei Chan MD May 23, 2020 10:44
--- NOTE | 2020-05-23 11:27 | Pulmonology Progress Note ---
Subjective ROS Limited/Unobtainable: Yes Interval Events: Self extubated yesterday; restless; ABG adequate Constitutional: Denies: fever HEENT: Repors: no symptoms Respiratory: Reports: no symptoms Cardiovascular: Reports: no symptoms Gastrointestinal/Abdominal: Reports: no symptoms Genitourinary: Reports: no symptoms Allergies: Coded Allergies: LITHIUM (Verified Allergy, Unknown, 02/07/19) Objective Last 24 Hour Vital Signs Date Time Temp Pulse Resp B/P (MAP) Pulse Ox O2 Delivery O2 Flow Rate FiO2 05/23/20 09:15 Venturi Mask 14.0 55 05/23/20 09:00 8.0 55 05/23/20 09:00 69 18 105/37 (59) 96 05/23/20 08:35 98 Non-Rebreather 15.0 100 05/23/20 08:00 72 05/23/20 08:00 100 05/23/20 08:00 96.8 69 16 119/34 (62) 100 05/23/20 08:00 Non-Rebreather 15.0 05/23/20 07:00 75 21 119/43 (68) 100 05/23/20 06:00 74 17 114/33 (60) 100 05/23/20 05:00 72 18 108/33 (58) 99 05/23/20 04:00 Non-Rebreather 15.0 05/23/20 04:00 100 05/23/20 04:00 98.2 74 21 110/31 (57) 98 05/23/20 03:02 77 05/23/20 03:00 75 17 110/33 (58) 100 05/23/20 02:00 68 21 112/35 (60) 100 05/23/20 01:00 65 25 111/33 (59) 100 05/23/20 00:00 98.2 70 25 114/37 (62) 97 05/23/20 00:00 100 05/23/20 00:00 Non-Rebreather 15.0 05/22/20 23:00 72 21 106/35 (58) 96 05/22/20 22:59 73 05/22/20 22:00 71 17 110/35 (60) 100 05/22/20 21:00 72 23 111/34 (59) 97 05/22/20 20:00 Non-Rebreather 15.0 05/22/20 20:00 98.1 67 13 112/37 (62) 100 05/22/20 20:00 100 05/22/20 19:46 100 Non-Rebreather 15.0 100 05/22/20 19:23 78 05/22/20 19:00 72 14 118/35 (62) 100 05/22/20 18:00 74 16 116/37 (63) 100 05/22/20 17:00 98.2 74 19 107/35 (59) 100 05/22/20 16:00 Non-Rebreather 15.0 05/22/20 16:00 80 05/22/20 16:00 100 05/22/20 16:00 74 17 114/36 (62) 100 05/22/20 15:00 73 19 113/46 (68) 100 05/22/20 14:00 75 18 115/37 (63) 100 05/22/20 13:00 71 19 128/42 (70) 100 05/22/20 12:00 71 05/22/20 12:00 98.6 74 16 110/37 (61) 99 05/22/20 12:00 Non-Rebreather 15.0 05/22/20 12:00 100 Intake and Output 05/22/20 05/23/20 18:59 06:59 Intake Total 700.000 ml 850 ml Output Total 1150 ml 950 ml Balance -450.000 ml -100 ml IV Total 700.000 ml 850 ml Output Urine Total 1150 ml 950 ml General Appearance: no acute distress HEENT: normocephalic Respiratory: no respiratory distress, decreased breath sounds, other - On ventilator Cardiovascular: normal rate Abdomen: soft, non tender, other - obese, NG tube Extremities: other - b/l 2+ pitting edema Neurologic: disoriented Laboratory Tests 05/23/20 05:00: White Blood Count 7.4, Red Blood Count 2.60L, Hemoglobin 8.4L, Hematocrit 24.3L, Mean Corpuscular Volume 94, Mean Corpuscular Hemoglobin 32.3H, Mean Corpuscular Hemoglobin Concent 34.4, Red Cell Distribution Width 14.8, Platelet Count 211, Mean Platelet Volume 6.6, Neutrophils (%) (Auto) 74.9, Lymphocytes (%) (Auto) 18.2L, Monocytes (%) (Auto) 5.2, Eosinophils (%) (Auto) 1.3, Basophils (%) (Auto) 0.4, Sodium Level 146H, Potassium Level 3.9, Chloride Level 110H, Carbon Dioxide Level 35H, Anion Gap 1L, Blood Urea Nitrogen 31H, Creatinine 0.8, Estimat Glomerular Filtration Rate > 60, Glucose Level 87, Calcium Level 8.1L 05/23/20 09:01: Arterial Blood pH 7.417, Arterial Blood Partial Pressure CO2 47.7H, Arterial Blood Partial Pressure O2 107.0H, Arterial Blood HCO3 30.0H, Arterial Blood Oxygen Saturation 97.3, Arterial Blood Base Excess 4.9H, Raphael Test Positive Current Medications Medications (Trade) Dose Ordered Sig/Angie Route PRN Reason Start Time Stop Time Status Last Admin Dose Admin Acetaminophen (Tylenol) 650 mg Q6H PRN NG Fever >100.5 05/14/20 21:00 06/13/20 20:59 05/14/20 21:10 Acetaminophen (Tylenol) 650 mg Q6H PRN NG Mild Pain (Pain Scale 1-3) 05/14/20 21:00 06/13/20 20:59 05/17/20 11:06 Chlorhexidine Gluconate (Ruba-Hex 2%) 1 applic DAILY@1999 TOPIC 05/15/20 20:00 08/13/20 19:59 05/22/20 19:48 Clonidine HCl (Catapres Tab) 0.1 mg Q4H PRN ORAL sbp>170 05/11/20 17:15 08/09/20 17:14 Dextrose/Sodium Chloride 1,000 ml @ 50 mls/hr Q20H IV 05/22/20 12:00 06/21/20 11:59 05/23/20 09:23 Haloperidol Lactate (Haldol) 5 mg Q6H PRN IM Agitation 05/13/20 20:45 06/27/20 20:44 05/21/20 09:41 Levothyroxine Sodium (Synthroid) 50 mcg DAILY@0630 ORAL 05/14/20 06:30 06/13/20 06:29 05/23/20 05:44 Lorazepam (Ativan 2mg/ml 1ml) 1 mg Q4H PRN IV For Anxiety 05/17/20 12:00 05/24/20 11:59 05/20/20 20:26 Assessment/Plan Assessment/Plan 1. Bilateral COVID-19 multilobar pneumonia. - s/p self-extubation - Afebrile - Continue Azithromycin, Ceftriaxone, dexamethasone - On remdesivir 2. Hx of COPD. 3. Schizophrenia/psychosis - On haloperidol 4. Hypoxia. - Now extubated - Will monitor 5. Anemia - stable DVT ppx Time spent for this case was 31 minutes Transfer out to SDU Sincere Myers MD May 23, 2020 11:26
--- NOTE | 2020-05-23 14:04 | Diagnostic Imaging Report ---
. Indication: Reason For Exam: SOB Technique: Single AP view of the chest. Comparison: Chest radiograph dated 05/18/2020 Findings: The cardiomediastinal silhouette is unchanged in appearance. Again demonstrated is bilateral airspace disease characterized by diffuse interstitial opacities as well as bilateral patchy airspace opacities and multifocal consolidation. Likely small left pleural effusion, unchanged. Unchanged enteric tube. Interval extubation. IMPRESSION: 1. No significant change in cardiac pulmonary findings when compared to most recent examination. 2. Interval removal of endotracheal tube.
--- NOTE | 2020-05-23 14:07 | Cardiac Electrophysiology PN ---
Assessment/Plan Assessment/Plan 1. Covid PNA, respiratory failure. Self extubated on 55% Venturi MAsk 2. History of COPD. 3. Hypotension. Off Dopamine. EF 55% 4. Bradycardia resolved and is off Dopamine 5. Schizophrenia and psychosis. YOSELYN RN Subjective Subjective Self extubated yesterday on 55% Venturi Mask in ICU in Covid isolation Objective Last 24 Hour Vital Signs Date Time Temp Pulse Resp B/P (MAP) Pulse Ox O2 Delivery O2 Flow Rate FiO2 05/23/20 13:00 70 23 109/34 (59) 96 05/23/20 12:00 97.0 84 19 117/41 (66) 93 05/23/20 12:00 Non-Rebreather 15.0 05/23/20 12:00 69 05/23/20 11:00 72 15 112/33 (59) 96 05/23/20 10:00 70 19 106/37 (60) 96 05/23/20 09:15 Venturi Mask 14.0 55 05/23/20 09:00 8.0 55 05/23/20 09:00 69 18 105/37 (59) 96 05/23/20 08:35 98 Non-Rebreather 15.0 100 05/23/20 08:00 72 05/23/20 08:00 100 05/23/20 08:00 96.8 69 16 119/34 (62) 100 05/23/20 08:00 Non-Rebreather 15.0 05/23/20 07:00 75 21 119/43 (68) 100 05/23/20 06:00 74 17 114/33 (60) 100 05/23/20 05:00 72 18 108/33 (58) 99 05/23/20 04:00 Non-Rebreather 15.0 05/23/20 04:00 100 05/23/20 04:00 98.2 74 21 110/31 (57) 98 05/23/20 03:02 77 05/23/20 03:00 75 17 110/33 (58) 100 05/23/20 02:00 68 21 112/35 (60) 100 05/23/20 01:00 65 25 111/33 (59) 100 05/23/20 00:00 98.2 70 25 114/37 (62) 97 05/23/20 00:00 100 05/23/20 00:00 Non-Rebreather 15.0 05/22/20 23:00 72 21 106/35 (58) 96 05/22/20 22:59 73 05/22/20 22:00 71 17 110/35 (60) 100 05/22/20 21:00 72 23 111/34 (59) 97 05/22/20 20:00 Non-Rebreather 15.0 05/22/20 20:00 98.1 67 13 112/37 (62) 100 05/22/20 20:00 100 05/22/20 19:46 100 Non-Rebreather 15.0 100 05/22/20 19:23 78 05/22/20 19:00 72 14 118/35 (62) 100 05/22/20 18:00 74 16 116/37 (63) 100 05/22/20 17:00 98.2 74 19 107/35 (59) 100 05/22/20 16:00 Non-Rebreather 15.0 05/22/20 16:00 80 05/22/20 16:00 100 05/22/20 16:00 74 17 114/36 (62) 100 05/22/20 15:00 73 19 113/46 (68) 100 Intake and Output 05/22/20 05/23/20 19:00 07:00 Intake Total 750.000 ml 850 ml Output Total 1125 ml 925 ml Balance -375.000 ml -75 ml IV Total 750.000 ml 850 ml Output Urine Total 1125 ml 925 ml Laboratory Tests Test 05/23/20 05:00 05/23/20 09:01 White Blood Count 7.4 K/UL (4.8-10.8) Red Blood Count 2.60 M/UL (4.20-5.40) L Hemoglobin 8.4 G/DL (12.0-16.0) L Hematocrit 24.3 % (37.0-47.0) L Mean Corpuscular Volume 94 FL (80-99) Mean Corpuscular Hemoglobin 32.3 PG (27.0-31.0) H Mean Corpuscular Hemoglobin Concent 34.4 G/DL (32.0-36.0) Red Cell Distribution Width 14.8 % (11.6-14.8) Platelet Count 211 K/UL (150-450) Mean Platelet Volume 6.6 FL (6.5-10.1) Neutrophils (%) (Auto) 74.9 % (45.0-75.0) Lymphocytes (%) (Auto) 18.2 % (20.0-45.0) L Monocytes (%) (Auto) 5.2 % (1.0-10.0) Eosinophils (%) (Auto) 1.3 % (0.0-3.0) Basophils (%) (Auto) 0.4 % (0.0-2.0) Sodium Level 146 MMOL/L (136-145) H Potassium Level 3.9 MMOL/L (3.5-5.1) Chloride Level 110 MMOL/L (98-107) H Carbon Dioxide Level 35 MMOL/L (21-32) H Anion Gap 1 mmol/L (5-15) L Blood Urea Nitrogen 31 mg/dL (7-18) H Creatinine 0.8 MG/DL (0.55-1.30) Estimat Glomerular Filtration Rate > 60 mL/min (>60) Glucose Level 87 MG/DL (74-106) Calcium Level 8.1 MG/DL (8.5-10.1) L Arterial Blood pH 7.417 (7.350-7.450) Arterial Blood Partial Pressure CO2 47.7 mmHg (35.0-45.0) H Arterial Blood Partial Pressure O2 107.0 mmHg (75.0-100.0) H Arterial Blood HCO3 30.0 mmol/L (22.0-26.0) H Arterial Blood Oxygen Saturation 97.3 % (95-100) Arterial Blood Base Excess 4.9 (-2-2) H Raphael Test Positive Objective HEAD AND NECK: Positive JVD. LUNGS: Decreased breath sounds. CARDIOVASCULAR: Regular S1 and S2 with no gallop. ABDOMEN: Obese. EXTREMITIES: Bilateral 2+ pitting edema. Cameron Davies MD May 23, 2020 14:07
--- NOTE | 2020-05-23 17:08 | Surgery Progress Note ---
Surgery Progress Note Subjective Additional Comments abg noted on nrb stable labs noted comfortable today Objective Last 24 Hour Vital Signs Date Time Temp Pulse Resp B/P (MAP) Pulse Ox O2 Delivery O2 Flow Rate FiO2 05/23/20 16:00 8.0 55 05/23/20 16:00 71 05/23/20 16:00 97.4 69 17 115/37 (63) 91 05/23/20 16:00 Non-Rebreather 15.0 05/23/20 15:00 69 17 115/40 (65) 94 05/23/20 14:00 70 19 109/40 (63) 94 05/23/20 13:00 70 23 109/34 (59) 96 05/23/20 12:00 97.0 84 19 117/41 (66) 93 05/23/20 12:00 Non-Rebreather 15.0 05/23/20 12:00 69 05/23/20 11:00 72 15 112/33 (59) 96 05/23/20 10:00 70 19 106/37 (60) 96 05/23/20 09:15 Venturi Mask 14.0 55 05/23/20 09:00 8.0 55 05/23/20 09:00 69 18 105/37 (59) 96 05/23/20 08:35 98 Non-Rebreather 15.0 100 05/23/20 08:00 72 05/23/20 08:00 100 05/23/20 08:00 96.8 69 16 119/34 (62) 100 05/23/20 08:00 Non-Rebreather 15.0 05/23/20 07:00 75 21 119/43 (68) 100 05/23/20 06:00 74 17 114/33 (60) 100 05/23/20 05:00 72 18 108/33 (58) 99 05/23/20 04:00 Non-Rebreather 15.0 05/23/20 04:00 100 05/23/20 04:00 98.2 74 21 110/31 (57) 98 05/23/20 03:02 77 05/23/20 03:00 75 17 110/33 (58) 100 05/23/20 02:00 68 21 112/35 (60) 100 05/23/20 01:00 65 25 111/33 (59) 100 05/23/20 00:00 98.2 70 25 114/37 (62) 97 05/23/20 00:00 100 05/23/20 00:00 Non-Rebreather 15.0 05/22/20 23:00 72 21 106/35 (58) 96 05/22/20 22:59 73 05/22/20 22:00 71 17 110/35 (60) 100 05/22/20 21:00 72 23 111/34 (59) 97 05/22/20 20:00 Non-Rebreather 15.0 05/22/20 20:00 98.1 67 13 112/37 (62) 100 05/22/20 20:00 100 05/22/20 19:46 100 Non-Rebreather 15.0 100 05/22/20 19:23 78 05/22/20 19:00 72 14 118/35 (62) 100 05/22/20 18:00 74 16 116/37 (63) 100 I&O Intake and Output 05/22/20 05/23/20 19:00 07:00 Intake Total 750.000 ml 850 ml Output Total 1125 ml 925 ml Balance -375.000 ml -75 ml IV Total 750.000 ml 850 ml Output Urine Total 1125 ml 925 ml Dressing: saturated Cardiovascular: RSR Respiratory: decreased breath sounds Abdomen: non-tender, present bowel sounds Extremities: edema, no tenderness, no cyanosis Laboratory Tests Test 05/23/20 05:00 05/23/20 09:01 White Blood Count 7.4 K/UL (4.8-10.8) Red Blood Count 2.60 M/UL (4.20-5.40) L Hemoglobin 8.4 G/DL (12.0-16.0) L Hematocrit 24.3 % (37.0-47.0) L Mean Corpuscular Volume 94 FL (80-99) Mean Corpuscular Hemoglobin 32.3 PG (27.0-31.0) H Mean Corpuscular Hemoglobin Concent 34.4 G/DL (32.0-36.0) Red Cell Distribution Width 14.8 % (11.6-14.8) Platelet Count 211 K/UL (150-450) Mean Platelet Volume 6.6 FL (6.5-10.1) Neutrophils (%) (Auto) 74.9 % (45.0-75.0) Lymphocytes (%) (Auto) 18.2 % (20.0-45.0) L Monocytes (%) (Auto) 5.2 % (1.0-10.0) Eosinophils (%) (Auto) 1.3 % (0.0-3.0) Basophils (%) (Auto) 0.4 % (0.0-2.0) Sodium Level 146 MMOL/L (136-145) H Potassium Level 3.9 MMOL/L (3.5-5.1) Chloride Level 110 MMOL/L (98-107) H Carbon Dioxide Level 35 MMOL/L (21-32) H Anion Gap 1 mmol/L (5-15) L Blood Urea Nitrogen 31 mg/dL (7-18) H Creatinine 0.8 MG/DL (0.55-1.30) Estimat Glomerular Filtration Rate > 60 mL/min (>60) Glucose Level 87 MG/DL (74-106) Calcium Level 8.1 MG/DL (8.5-10.1) L Arterial Blood pH 7.417 (7.350-7.450) Arterial Blood Partial Pressure CO2 47.7 mmHg (35.0-45.0) H Arterial Blood Partial Pressure O2 107.0 mmHg (75.0-100.0) H Arterial Blood HCO3 30.0 mmol/L (22.0-26.0) H Arterial Blood Oxygen Saturation 97.3 % (95-100) Arterial Blood Base Excess 4.9 (-2-2) H Raphael Test Positive Plan Problems: (1) Anemia (2) Hypercapnic respiratory failure Assessment & Plan: respiratory insufficiency requiring prolonged ventilatory support unable to wean vent safely after multiple attempts discussed with pcp. discussed with pulm discussed with patient guardian. patient unable to consent. no nok or poa. given critical care and condition not recommended to await court decision which during pandemic can take long time. medically necessary to proceed with trach in patients best interest. 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
[2020-05-23] MEDS: Dyna-Hex 2% Top Sol 2oz TOPIC SCH (19:58)
--- NOTE | 2020-05-23 20:02 | Psychiatric Progress Note ---
Psychiatry Progress Note Psychiatry Progress Note Subjective the pt is lethargic on restraints waxing and waning o consciousness episodes agitation Medications Current Medications Medications (Trade) Dose Ordered Sig/Angie Route PRN Reason Start Time Stop Time Status Last Admin Dose Admin Acetaminophen (Tylenol) 650 mg Q6H PRN NG Fever >100.5 05/14/20 21:00 06/13/20 20:59 05/14/20 21:10 Acetaminophen (Tylenol) 650 mg Q6H PRN NG Mild Pain (Pain Scale 1-3) 05/14/20 21:00 06/13/20 20:59 05/17/20 11:06 Chlorhexidine Gluconate (Ruba-Hex 2%) 1 applic DAILY@2000 TOPIC 05/15/20 20:00 08/13/20 19:59 05/23/20 19:58 Clonidine HCl (Catapres Tab) 0.1 mg Q4H PRN ORAL sbp>170 05/11/20 17:15 08/09/20 17:14 Dextrose/Sodium Chloride 1,000 ml @ 50 mls/hr Q20H IV 05/22/20 12:00 06/21/20 11:59 05/23/20 09:23 Haloperidol Lactate (Haldol) 5 mg Q6H PRN IM Agitation 05/13/20 20:45 06/27/20 20:44 05/21/20 09:41 Levothyroxine Sodium (Synthroid) 50 mcg DAILY@0630 ORAL 05/14/20 06:30 06/13/20 06:29 05/23/20 05:44 Lorazepam (Ativan 2mg/ml 1ml) 1 mg Q4H PRN IV For Anxiety 05/17/20 12:00 05/24/20 11:59 05/20/20 20:26 Neurological/Psychiatric: Reports: anxiety, depressed, emotional problems Allergies: Coded Allergies: LITHIUM (Verified Allergy, Unknown, 02/07/19) Objective Data Height (Feet): 5 Height (Inches): 3.00 Weight (Pounds): 183 General Appearance: lethargic, confused, agitated Additional Comments: waxing and waning consciousness. Disoriented. Mood is neutral to agitation. Affect is flat. Thought process, there is paucity of thought process. Thought content, no suicidal or homicidal ideation. Cognition is impaired. Insight and judgment is impaired. Assessment/Plan [place] I: [place] I Acute toxic encephalopathy. Schizophrenia. [place] II Deferred. [place] III COVID-19. [place] IV Low. [place] V 20 PLAN: 1. Discontinue the IV Haldol. 2. Start the patient on Haldol IM. 3. The patient benefits from bilateral soft restraints. 4. Provide the patient with reality orientation. 5. Discussed with the nurse. Status: progressing, unchanged Status Narrative [place] I Acute toxic encephalopathy. Schizophrenia. [place] II Deferred. [place] III COVID-19. [place] IV Low. [place] V 20 PLAN: 1. Discontinue the IV Haldol. 2. Start the patient on Haldol IM. 3. The patient benefits from bilateral soft restraints. 4. Provide the patient with reality orientation. 5. Discussed with the nurse. Assessment/Plan: [place] I Acute toxic encephalopathy. Schizophrenia. [place] II Deferred. [place] III COVID-19. [place] IV Low. [place] V 20 PLAN: 1. Discontinue the IV Haldol. 2. Start the patient on Haldol IM. 3. The patient benefits from bilateral soft restraints. 4. Provide the patient with reality orientation. 5. Discussed with the nurse. Kiana Hernandez MD May 23, 2020 20:02
--- NOTE | 2020-05-23 20:31 | General Progress Note ---
Subjective ROS Limited/Unobtainable: Yes Allergies: Coded Allergies: LITHIUM (Verified Allergy, Unknown, 02/07/19) Objective Last 24 Hour Vital Signs Date Time Temp Pulse Resp B/P (MAP) Pulse Ox O2 Delivery O2 Flow Rate FiO2 05/23/20 20:00 98.2 69 20 111/39 (63) 95 05/23/20 20:00 14.0 55 05/23/20 20:00 Non-Rebreather 14.0 05/23/20 19:29 71 05/23/20 19:00 74 22 106/40 (62) 77 05/23/20 18:00 69 17 106/50 (68) 95 05/23/20 17:00 69 17 111/59 (76) 94 05/23/20 16:00 8.0 55 05/23/20 16:00 71 05/23/20 16:00 97.4 69 17 115/37 (63) 91 05/23/20 16:00 Non-Rebreather 15.0 05/23/20 15:00 69 17 115/40 (65) 94 05/23/20 14:00 70 19 109/40 (63) 94 05/23/20 13:00 70 23 109/34 (59) 96 05/23/20 12:00 97.0 84 19 117/41 (66) 93 05/23/20 12:00 Non-Rebreather 15.0 05/23/20 12:00 69 05/23/20 11:00 72 15 112/33 (59) 96 05/23/20 10:00 70 19 106/37 (60) 96 05/23/20 09:15 Venturi Mask 14.0 55 05/23/20 09:00 8.0 55 05/23/20 09:00 69 18 105/37 (59) 96 05/23/20 08:35 98 Non-Rebreather 15.0 100 05/23/20 08:00 72 05/23/20 08:00 100 05/23/20 08:00 96.8 69 16 119/34 (62) 100 05/23/20 08:00 Non-Rebreather 15.0 05/23/20 07:00 75 21 119/43 (68) 100 05/23/20 06:00 74 17 114/33 (60) 100 05/23/20 05:00 72 18 108/33 (58) 99 05/23/20 04:00 Non-Rebreather 15.0 05/23/20 04:00 100 05/23/20 04:00 98.2 74 21 110/31 (57) 98 05/23/20 03:02 77 05/23/20 03:00 75 17 110/33 (58) 100 05/23/20 02:00 68 21 112/35 (60) 100 05/23/20 01:00 65 25 111/33 (59) 100 05/23/20 00:00 98.2 70 25 114/37 (62) 97 05/23/20 00:00 100 05/23/20 00:00 Non-Rebreather 15.0 05/22/20 23:00 72 21 106/35 (58) 96 05/22/20 22:59 73 05/22/20 22:00 71 17 110/35 (60) 100 05/22/20 21:00 72 23 111/34 (59) 97 Intake and Output 05/22/20 05/23/20 19:00 07:00 Intake Total 750.000 ml 850 ml Output Total 1125 ml 925 ml Balance -375.000 ml -75 ml IV Total 750.000 ml 850 ml Output Urine Total 1125 ml 925 ml Laboratory Tests 05/23/20 05:00: White Blood Count 7.4, Red Blood Count 2.60L, Hemoglobin 8.4L, Hematocrit 24.3L, Mean Corpuscular Volume 94, Mean Corpuscular Hemoglobin 32.3H, Mean Corpuscular Hemoglobin Concent 34.4, Red Cell Distribution Width 14.8, Platelet Count 211, Mean Platelet Volume 6.6, Neutrophils (%) (Auto) 74.9, Lymphocytes (%) (Auto) 18.2L, Monocytes (%) (Auto) 5.2, Eosinophils (%) (Auto) 1.3, Basophils (%) (Auto) 0.4, Sodium Level 146H, Potassium Level 3.9, Chloride Level 110H, Carbon Dioxide Level 35H, Anion Gap 1L, Blood Urea Nitrogen 31H, Creatinine 0.8, Estimat Glomerular Filtration Rate > 60, Glucose Level 87, Calcium Level 8.1L 05/23/20 09:01: Arterial Blood pH 7.417, Arterial Blood Partial Pressure CO2 47.7H, Arterial Blood Partial Pressure O2 107.0H, Arterial Blood HCO3 30.0H, Arterial Blood Oxygen Saturation 97.3, Arterial Blood Base Excess 4.9H, Raphael Test Positive 05/23/20 20:20: Activated Partial Thromboplast Time [Pending] Height (Feet): 5 Height (Inches): 3.00 Weight (Pounds): 183 Assessment/Plan Problem List: (1) Anemia ICD Codes: D64.9 - Anemia, unspecified SNOMED: 166890556 (2) Hypercapnic respiratory failure ICD Codes: J96.92 - Respiratory failure, unspecified with hypercapnia SNOMED: 973475981 (3) COVID-19 ICD Codes: U07.1 - COVID-19 SNOMED: 695888050 (4) COPD (chronic obstructive pulmonary disease) ICD Codes: J44.9 - Chronic obstructive pulmonary disease, unspecified SNOMED: 10677003 (5) Psychosis ICD Codes: F29 - Unspecified psychosis not due to a substance or known physiological condition SNOMED: 50557069 (6) Hypoxia ICD Codes: R09.02 - Hypoxemia SNOMED: 079997558 (7) Renal failure (ARF), acute on chronic ICD Codes: N17.9 - Acute kidney failure, unspecified; N18.9 - Chronic kidney disease, unspecified SNOMED: 160268218 (8) CHF exacerbation ICD Codes: I50.9 - Heart failure, unspecified SNOMED: 915200125, [id number] Status: progressing, unchanged Assessment/Plan: resp failure afebrile poor prognosis copd exacerbation no wheezing covid positive pna septic shock chf Dani Perera MD May 23, 2020 20:31
[2020-05-24] VITALS (24 sets, daily range): BP systolic 93–131; BP diastolic 27–52
[2020-05-24] MEDS: D5 1/2NS 1,000 ML IV SCH (04:00)
[2020-05-24 04:35] LABS: HEMATOCRIT 22.1 % (37.0-47.0); HEMOGLOBIN 7.8 G/DL (12.0-16.0); MEAN CORPUSCULAR VOLUME 92 FL (80-99); PLATELET COUNT 187 K/UL (150-450); RED BLOOD COUNT 2.39 M/UL (4.20-5.40); RED CELL DISTRIBUTION WIDTH 14.4 % (11.6-14.8); WHITE BLOOD COUNT 7.2 K/UL (4.8-10.8)
[2020-05-24 05:04] LABS: ALANINE AMINOTRANSFERASE 16 U/L (12-78); ALBUMIN 2.4 G/DL (3.4-5.0); ALBUMIN/GLOBULIN RATIO 0.7 (1.0-2.7); ALKALINE PHOSPHATASE 40 U/L (46-116); ASPARTATE AMINO TRANSFERASE 15 U/L (15-37); BLOOD UREA NITROGEN 25 mg/dL (7-18); CALCIUM 7.7 MG/DL (8.5-10.1); CARBON DIOXIDE 35 MMOL/L (21-32); CHLORIDE 110 MMOL/L (98-107); CREATININE 0.8 MG/DL (0.55-1.30); PHOSPHORUS 2.5 MG/DL (2.5-4.9); POTASSIUM 3.5 MMOL/L (3.5-5.1); SODIUM 144 MMOL/L (136-145)
[2020-05-24 05:07] LABS: ANION GAP 0 mmol/L (5-15)
--- NOTE | 2020-05-24 10:33 | Infectious Diseases Prog Note ---
Assessment/Plan Assessment/Plan IMPRESSION: COVID-19 disease, Acute respiratory failure, COPD, Diastolic CHF, Mitral valve regurgitation, Anemia, Parkinson disease, schizoaffective disorder, Dementia, Obstructive sleep apnea, Hypothyroidism. 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 RECOMMENDATION: Finished dexamethasone & Remdesivir course Observe off of antibiotic Subjective ROS Limited/Unobtainable: Yes Constitutional: Denies: fever Neurologic: Reports: other - on restraint Allergies: Coded Allergies: LITHIUM (Verified Allergy, Unknown, 02/07/19) Objective Last 24 Hour Vital Signs Date Time Temp Pulse Resp B/P (MAP) Pulse Ox O2 Delivery O2 Flow Rate FiO2 05/24/20 10:00 66 19 114/33 (60) 99 05/24/20 09:00 63 13 109/32 (57) 97 05/24/20 08:00 66 05/24/20 08:00 98.4 63 20 110/42 (64) 99 05/24/20 08:00 Nasal Cannula 4.0 05/24/20 07:00 66 23 109/33 (58) 99 05/24/20 06:00 63 23 99/28 (51) 97 05/24/20 05:00 63 19 103/29 (53) 97 05/24/20 04:00 Non-Rebreather 14.0 05/24/20 04:00 98.2 63 17 97/27 (50) 99 05/24/20 03:01 67 05/24/20 03:00 74 23 114/29 (57) 99 05/24/20 02:00 61 24 105/27 (53) 94 05/24/20 01:00 62 18 98/34 (55) 97 05/24/20 00:00 98.2 63 20 101/32 (55) 95 05/24/20 00:00 Non-Rebreather 14.0 05/23/20 23:19 64 05/23/20 23:00 70 19 105/39 (61) 96 05/23/20 22:00 70 19 101/38 (59) 95 05/23/20 21:00 82 22 110/76 (87) 90 05/23/20 20:00 98.2 69 20 111/39 (63) 95 05/23/20 20:00 14.0 55 05/23/20 20:00 Non-Rebreather 14.0 05/23/20 19:29 71 05/23/20 19:00 74 22 106/40 (62) 77 05/23/20 18:00 69 17 106/50 (68) 95 05/23/20 17:00 69 17 111/59 (76) 94 05/23/20 16:00 8.0 55 05/23/20 16:00 71 05/23/20 16:00 97.4 69 17 115/37 (63) 91 05/23/20 16:00 Non-Rebreather 15.0 05/23/20 15:00 69 17 115/40 (65) 94 05/23/20 14:00 70 19 109/40 (63) 94 05/23/20 13:00 70 23 109/34 (59) 96 05/23/20 12:00 97.0 84 19 117/41 (66) 93 05/23/20 12:00 Non-Rebreather 15.0 05/23/20 12:00 69 05/23/20 11:00 72 15 112/33 (59) 96 Height (Feet): 5 Height (Inches): 3.00 Weight (Pounds): 183 HEENT: mucous membranes moist Respiratory/Chest: other - oxygen by nasal cannula Cardiovascular: normal rate Abdomen: soft, non tender, other - NG tube feeding Extremities: no edema Neurologic/Psychiatric: alert, responsive Laboratory Tests Test 05/23/20 20:20 05/24/20 04:00 Activated Partial Thromboplast Time 27 SEC (23-33) White Blood Count 7.2 K/UL (4.8-10.8) Red Blood Count 2.39 M/UL (4.20-5.40) L Hemoglobin 7.8 G/DL (12.0-16.0) L Hematocrit 22.1 % (37.0-47.0) L Mean Corpuscular Volume 92 FL (80-99) Mean Corpuscular Hemoglobin 32.7 PG (27.0-31.0) H Mean Corpuscular Hemoglobin Concent 35.4 G/DL (32.0-36.0) Red Cell Distribution Width 14.4 % (11.6-14.8) Platelet Count 187 K/UL (150-450) Mean Platelet Volume 7.1 FL (6.5-10.1) Neutrophils (%) (Auto) % (45.0-75.0) Lymphocytes (%) (Auto) % (20.0-45.0) Monocytes (%) (Auto) % (1.0-10.0) Eosinophils (%) (Auto) % (0.0-3.0) Basophils (%) (Auto) % (0.0-2.0) Differential Total Cells Counted 100 Neutrophils % (Manual) 86 % (45-75) H Lymphocytes % (Manual) 11 % (20-45) L Monocytes % (Manual) 1 % (1-10) Eosinophils % (Manual) 2 % (0-3) Basophils % (Manual) 0 % (0-2) Band Neutrophils 0 % (0-8) Platelet Estimate Adequate Platelet Morphology Normal Hypochromasia 1+ Anisocytosis 1+ Sodium Level 144 MMOL/L (136-145) Potassium Level 3.5 MMOL/L (3.5-5.1) Chloride Level 110 MMOL/L (98-107) H Carbon Dioxide Level 35 MMOL/L (21-32) H Anion Gap 0 mmol/L (5-15) L Blood Urea Nitrogen 25 mg/dL (7-18) H Creatinine 0.8 MG/DL (0.55-1.30) Estimat Glomerular Filtration Rate > 60 mL/min (>60) Glucose Level 126 MG/DL (74-106) H Calcium Level 7.7 MG/DL (8.5-10.1) L Phosphorus Level 2.5 MG/DL (2.5-4.9) Magnesium Level 1.8 MG/DL (1.8-2.4) Total Bilirubin 1.0 MG/DL (0.2-1.0) Aspartate Amino Transf (AST/SGOT) 15 U/L (15-37) Alanine Aminotransferase (ALT/SGPT) 16 U/L (12-78) Alkaline Phosphatase 40 U/L (46-116) L C-Reactive Protein, Quantitative 6.7 mg/dL (0.00-0.90) H Pro-B-Type Natriuretic Peptide 2412 pg/mL (0-125) H Total Protein 5.8 G/DL (6.4-8.2) L Albumin 2.4 G/DL (3.4-5.0) L Globulin 3.4 g/dL Albumin/Globulin Ratio 0.7 (1.0-2.7) L Current Medications Medications (Trade) Dose Ordered Sig/Angie Route PRN Reason Start Time Stop Time Status Last Admin Dose Admin Acetaminophen (Tylenol) 650 mg Q6H PRN NG Fever >100.5 05/14/20 21:00 06/13/20 20:59 05/14/20 21:10 Acetaminophen (Tylenol) 650 mg Q6H PRN NG Mild Pain (Pain Scale 1-3) 05/14/20 21:00 06/13/20 20:59 05/17/20 11:06 Chlorhexidine Gluconate (Ruba-Hex 2%) 1 applic DAILY@2000 TOPIC 05/15/20 20:00 08/13/20 19:59 05/23/20 19:58 Clonidine HCl (Catapres Tab) 0.1 mg Q4H PRN ORAL sbp>170 05/11/20 17:15 08/09/20 17:14 Dextrose/Sodium Chloride 1,000 ml @ 50 mls/hr Q20H IV 05/22/20 12:00 06/21/20 11:59 05/24/20 04:00 Haloperidol Lactate (Haldol) 5 mg Q6H PRN IM Agitation 05/13/20 20:45 06/27/20 20:44 05/21/20 09:41 Levothyroxine Sodium (Synthroid) 50 mcg DAILY@0630 ORAL 05/14/20 06:30 06/13/20 06:29 05/24/20 05:40 Lorazepam (Ativan 2mg/ml 1ml) 1 mg Q4H PRN IV For Anxiety 05/17/20 12:00 05/24/20 11:59 05/20/20 20:26 Lei Chan MD May 24, 2020 10:33
--- NOTE | 2020-05-24 12:58 | Nephrology Progress Note ---
Assessment/Plan Problem List: (1) Renal failure (ARF), acute on chronic (2) Hypercapnic respiratory failure (3) CHF exacerbation Assessment Azotemia/renal failure Acute respiratory failure most likely secondary to CHF, on mechanical ventilation History of COPD Hypertension Hyperlipemia Schizophrenia/psychosis Plan May 24: Remains extubated. Will start on diet with high alert for possible aspiration. Continue to monitor renal parameters. May 23: Continues to be extubated. On nonrebreathing mask. Labs reviewed. Renal parameters stable. Discussed with RN. Continue per current management. May 22: Now extubated on nonrebreathing mask. Labs reviewed. Renal pa rameters stable. Abnormal electrolytes addressed. Discussed with RN. May 21: Remains intubated. Labs reviewed. Abnormal electrolytes addressed. Discussed with RN. May 20: Remains intubated. Abnormal electrolyte noted on today's lab results and addressed. Continue per consultants. May 19: Patient remains intubated. Labs reviewed. Abnormal electrolytes addressed. Continue per current management. May 18: Patient seen in ICU. Remains intubated. Weaning is being tried. Discussed with RN. Labs reviewed. Abnormal electrolyte addressed. Continue per consultants. May 17: Labs reviewed. Remains intubated. Stable from renal standpoint of view. Continue weaning. Discussed with RN. May 16: Labs reviewed. Remains intubated. Remains full code. Stable from renal standpoint of view. Abnormal electrolytes addressed. May 15: Labs reviewed. Renal parameters stable. Discussed with RN. Patient remains intubated on ventilator and full code. Continue per consultants. May 14: Labs reviewed. Discussed with RN. Abnormal electrolyte addressed. Continue per current management. Patient seen in ICU. Discussed with RN. Today's labs pending. Patient remains on 6 mics of dopamine. Pulmonary support Monitor intake and output Monitor electrolytes Continue per consultants Per orders Subjective ROS Limited/Unobtainable: No Constitutional: Reports: malaise, weakness Objective Objective Last 24 Hour Vital Signs Date Time Temp Pulse Resp B/P (MAP) Pulse Ox O2 Delivery O2 Flow Rate FiO2 05/24/20 11:00 67 18 109/34 (59) 95 05/24/20 10:00 66 19 114/33 (60) 99 05/24/20 09:00 63 13 109/32 (57) 97 05/24/20 08:00 66 05/24/20 08:00 98.4 63 20 110/42 (64) 99 05/24/20 08:00 Nasal Cannula 4.0 05/24/20 07:00 66 23 109/33 (58) 99 05/24/20 06:00 63 23 99/28 (51) 97 05/24/20 05:00 63 19 103/29 (53) 97 05/24/20 04:00 Non-Rebreather 14.0 05/24/20 04:00 98.2 63 17 97/27 (50) 99 05/24/20 03:01 67 05/24/20 03:00 74 23 114/29 (57) 99 05/24/20 02:00 61 24 105/27 (53) 94 05/24/20 01:00 62 18 98/34 (55) 97 05/24/20 00:00 98.2 63 20 101/32 (55) 95 05/24/20 00:00 Non-Rebreather 14.0 05/23/20 23:19 64 05/23/20 23:00 70 19 105/39 (61) 96 05/23/20 22:00 70 19 101/38 (59) 95 05/23/20 21:00 82 22 110/76 (87) 90 05/23/20 20:00 98.2 69 20 111/39 (63) 95 05/23/20 20:00 14.0 55 05/23/20 20:00 Non-Rebreather 14.0 05/23/20 19:29 71 05/23/20 19:00 74 22 106/40 (62) 77 05/23/20 18:00 69 17 106/50 (68) 95 05/23/20 17:00 69 17 111/59 (76) 94 05/23/20 16:00 8.0 55 05/23/20 16:00 71 05/23/20 16:00 97.4 69 17 115/37 (63) 91 05/23/20 16:00 Non-Rebreather 15.0 05/23/20 15:00 69 17 115/40 (65) 94 05/23/20 14:00 70 19 109/40 (63) 94 05/23/20 13:00 70 23 109/34 (59) 96 Intake and Output 05/23/20 05/24/20 19:00 07:00 Intake Total 550 ml 599.167 ml Output Total 900 ml 800 ml Balance -350 ml -200.833 ml IV Total 550 ml 599.167 ml Output Urine Total 900 ml 800 ml Laboratory Tests 05/23/20 20:20: Activated Partial Thromboplast Time 27 05/24/20 04:00: White Blood Count 7.2, Red Blood Count 2.39L, Hemoglobin 7.8L, Hematocrit 22.1L, Mean Corpuscular Volume 92, Mean Corpuscular Hemoglobin 32.7H, Mean Corpuscular Hemoglobin Concent 35.4, Red Cell Distribution Width 14.4, Platelet Count 187, Mean Platelet Volume 7.1, Neutrophils (%) (Auto) , Lymphocytes (%) (Auto) , Monocytes (%) (Auto) , Eosinophils (%) (Auto) , Basophils (%) (Auto) , Differential Total Cells Counted 100, Neutrophils % (Manual) 86H, Lymphocytes % (Manual) 11L, Monocytes % (Manual) 1, Eosinophils % (Manual) 2, Basophils % (Manual) 0, Band Neutrophils 0, Platelet Estimate Adequate, Platelet Morphology Normal, Hypochromasia 1+, Anisocytosis 1+, Sodium Level 144, Potassium Level 3.5, Chloride Level 110H, Carbon Dioxide Level 35H, Anion Gap 0L, Blood Urea Nitrogen 25H, Creatinine 0.8, Estimat Glomerular Filtration Rate > 60, Glucose Level 126H, Calcium Level 7.7L, Phosphorus Level 2.5, Magnesium Level 1.8, Total Bilirubin 1.0, Aspartate Amino Transf (AST/SGOT) 15, Alanine Aminotransferase (ALT/SGPT) 16, Alkaline Phosphatase 40L, C-Reactive Protein, Quantitative 6.7H, Pro-B-Type Natriuretic Peptide 2412H, Total Protein 5.8L, Albumin 2.4L, Globulin 3.4, Albumin/Globulin Ratio 0.7L Height (Feet): 5 Height (Inches): 3.00 Weight (Pounds): 183 General Appearance: no apparent distress Cardiovascular: normal rate Respiratory/Chest: decreased breath sounds Abdomen: soft Bryan Ochoa MD May 24, 2020 12:58
[2020-05-24] MEDS: Haloperidol 5mg/ml Inj IM PRN ×2 (14:05→20:19)
[2020-05-24] MEDS ORDERED: NS 275ml ONE (15:36)
[2020-05-24] MEDS ORDERED: D5 1/2NS 1000ml IV ONE (15:36)
--- NOTE | 2020-05-24 15:52 | Pulmonology Progress Note ---
Subjective ROS Limited/Unobtainable: Yes Interval Events: s/p self extubation; restless; ABG adequate Constitutional: Denies: fever HEENT: Repors: no symptoms Respiratory: Reports: no symptoms Cardiovascular: Reports: no symptoms Gastrointestinal/Abdominal: Reports: no symptoms Genitourinary: Reports: no symptoms Allergies: Coded Allergies: LITHIUM (Verified Allergy, Unknown, 02/07/19) Objective Last 24 Hour Vital Signs Date Time Temp Pulse Resp B/P (MAP) Pulse Ox O2 Delivery O2 Flow Rate FiO2 05/24/20 14:00 83 18 98/38 (58) 100 05/24/20 13:00 74 17 93/52 (66) 93 05/24/20 12:00 98.7 74 19 115/40 (65) 76 05/24/20 12:00 Nasal Cannula 4.0 05/24/20 12:00 81 05/24/20 11:00 67 18 109/34 (59) 95 05/24/20 10:00 66 19 114/33 (60) 99 05/24/20 09:00 63 13 109/32 (57) 97 05/24/20 08:00 66 05/24/20 08:00 98.4 63 20 110/42 (64) 99 05/24/20 08:00 Nasal Cannula 4.0 05/24/20 07:00 66 23 109/33 (58) 99 05/24/20 06:00 63 23 99/28 (51) 97 05/24/20 05:00 63 19 103/29 (53) 97 05/24/20 04:00 Non-Rebreather 14.0 05/24/20 04:00 98.2 63 17 97/27 (50) 99 05/24/20 03:01 67 05/24/20 03:00 74 23 114/29 (57) 99 05/24/20 02:00 61 24 105/27 (53) 94 05/24/20 01:00 62 18 98/34 (55) 97 05/24/20 00:00 98.2 63 20 101/32 (55) 95 05/24/20 00:00 Non-Rebreather 14.0 05/23/20 23:19 64 05/23/20 23:00 70 19 105/39 (61) 96 05/23/20 22:00 70 19 101/38 (59) 95 05/23/20 21:00 82 22 110/76 (87) 90 05/23/20 20:00 98.2 69 20 111/39 (63) 95 05/23/20 20:00 14.0 55 05/23/20 20:00 Non-Rebreather 14.0 05/23/20 19:29 71 05/23/20 19:00 74 22 106/40 (62) 77 05/23/20 18:00 69 17 106/50 (68) 95 05/23/20 17:00 69 17 111/59 (76) 94 05/23/20 16:00 8.0 55 05/23/20 16:00 71 05/23/20 16:00 97.4 69 17 115/37 (63) 91 05/23/20 16:00 Non-Rebreather 15.0 Intake and Output 05/23/20 05/24/20 19:00 07:00 Intake Total 550 ml 599.167 ml Output Total 900 ml 800 ml Balance -350 ml -200.833 ml IV Total 550 ml 599.167 ml Output Urine Total 900 ml 800 ml Objective 05/24/2020 in ICUD; restless, saturating ok with NC 05/19/2020 Pt in ICU; full code General Appearance: no acute distress HEENT: normocephalic Respiratory: no respiratory distress, decreased breath sounds Cardiovascular: normal rate Abdomen: soft, non tender, other - obese, NG tube Extremities: other - b/l 2+ pitting edema Neurologic: disoriented Laboratory Tests 05/23/20 20:20: Activated Partial Thromboplast Time 27 05/24/20 04:00: White Blood Count 7.2, Red Blood Count 2.39L, Hemoglobin 7.8L, Hematocrit 22.1L, Mean Corpuscular Volume 92, Mean Corpuscular Hemoglobin 32.7H, Mean Corpuscular Hemoglobin Concent 35.4, Red Cell Distribution Width 14.4, Platelet Count 187, Mean Platelet Volume 7.1, Neutrophils (%) (Auto) , Lymphocytes (%) (Auto) , Monocytes (%) (Auto) , Eosinophils (%) (Auto) , Basophils (%) (Auto) , Differential Total Cells Counted 100, Neutrophils % (Manual) 86H, Lymphocytes % (Manual) 11L, Monocytes % (Manual) 1, Eosinophils % (Manual) 2, Basophils % (Manual) 0, Band Neutrophils 0, Platelet Estimate Adequate, Platelet Morphology Normal, Hypochromasia 1+, Anisocytosis 1+, Sodium Level 144, Potassium Level 3.5, Chloride Level 110H, Carbon Dioxide Level 35H, Anion Gap 0L, Blood Urea Nitrogen 25H, Creatinine 0.8, Estimat Glomerular Filtration Rate > 60, Glucose L evel 126H, Calcium Level 7.7L, Phosphorus Level 2.5, Magnesium Level 1.8, Total Bilirubin 1.0, Aspartate Amino Transf (AST/SGOT) 15, Alanine Aminotransferase (ALT/SGPT) 16, Alkaline Phosphatase 40L, C-Reactive Protein, Quantitative 6.7H, Pro-B-Type Natriuretic Peptide 2412H, Total Protein 5.8L, Albumin 2.4L, Globulin 3.4, Albumin/Globulin Ratio 0.7L 05/24/20 14:56: Arterial Blood pH 7.455H, Arterial Blood Partial Pressure CO2 43.4, Arterial Blood Partial Pressure O2 255.6H, Arterial Blood HCO3 29.8H, Arterial Blood Oxygen Saturation 98.6, Arterial Blood Base Excess 5.4H, Raphael Test Positive Current Medications Medications (Trade) Dose Ordered Sig/Angie Route PRN Reason Start Time Stop Time Status Last Admin Dose Admin Acetaminophen (Tylenol) 650 mg Q6H PRN NG Fever >100.5 05/14/20 21:00 06/13/20 20:59 05/14/20 21:10 Acetaminophen (Tylenol) 650 mg Q6H PRN NG Mild Pain (Pain Scale 1-3) 05/14/20 21:00 06/13/20 20:59 05/17/20 11:06 Chlorhexidine Gluconate (Ruba-Hex 2%) 1 applic DAILY@1999 TOPIC 05/15/20 20:00 08/13/20 19:59 05/23/20 19:58 Clonidine HCl (Catapres Tab) 0.1 mg Q4H PRN ORAL sbp>170 05/11/20 17:15 08/09/20 17:14 Dextrose/Sodium Chloride 1,000 ml @ 50 mls/hr Q20H IV 05/22/20 12:00 06/21/20 11:59 05/24/20 04:00 Haloperidol Lactate (Haldol) 5 mg Q6H PRN IM Agitation 05/13/20 20:45 06/27/20 20:44 05/24/20 14:05 Levothyroxine Sodium (Synthroid) 50 mcg DAILY@0630 ORAL 05/14/20 06:30 06/13/20 06:29 05/24/20 05:40 Assessment/Plan Assessment/Plan 1. Bilateral COVID-19 multilobar pneumonia. - s/p ETT - Afebrile - Continue Azithromycin, Ceftriaxone, dexamethasone - On remdesivir - defer to ID 2. Hx of COPD. 3. Schizophrenia/psychosis - On dopamine, haloperidol 4. Hypoxia. - on nasal canula, s/p self extubation 5. Anemia - hgb 9.6 -> 7.9 -> 8.4 -> 7.8 6. Azotemia/renal failure - UA: Positive leuk esterase, protein, RBC, WBC (05/11/2020) - BUN 32 -> 39 -> 34 -> 25 DVT ppx The care for this patient was discussed with my supervising physician Time spent for this case was 31 minutes The patient was seen and examined at bedside and all new and available data was reviewed in the patients chart. I agree with the above findings, impression, and plan. (Patient was seen earlier today. Signature timestamp does not reflect patient encounter time) Trae Arriaga MD May 24, 2020 15:52 Sincere Myers MD May 24, 2020 18:24
--- NOTE | 2020-05-24 16:23 | Cardiac Electrophysiology PN ---
Assessment/Plan Assessment/Plan 1. Covid PNA, respiratory failure. Self extubated on Nasal cannula 2. History of COPD. 3. Hypotension. Off Dopamine. EF 55% 4. Bradycardia resolved and is off Dopamine 5. Schizophrenia and psychosis. YOSELYN RN Subjective Subjective Self extubated 05/22/20 on Nasal cannula in ICU in Covid isolation Objective Last 24 Hour Vital Signs Date Time Temp Pulse Resp B/P (MAP) Pulse Ox O2 Delivery O2 Flow Rate FiO2 05/24/20 14:00 83 18 98/38 (58) 100 05/24/20 13:00 74 17 93/52 (66) 93 05/24/20 12:00 98.7 74 19 115/40 (65) 76 05/24/20 12:00 Nasal Cannula 4.0 05/24/20 12:00 81 05/24/20 11:00 67 18 109/34 (59) 95 05/24/20 10:00 66 19 114/33 (60) 99 05/24/20 09:00 63 13 109/32 (57) 97 05/24/20 08:00 66 05/24/20 08:00 98.4 63 20 110/42 (64) 99 05/24/20 08:00 Nasal Cannula 4.0 05/24/20 07:00 66 23 109/33 (58) 99 05/24/20 06:00 63 23 99/28 (51) 97 05/24/20 05:00 63 19 103/29 (53) 97 05/24/20 04:00 Non-Rebreather 14.0 05/24/20 04:00 98.2 63 17 97/27 (50) 99 05/24/20 03:01 67 05/24/20 03:00 74 23 114/29 (57) 99 05/24/20 02:00 61 24 105/27 (53) 94 05/24/20 01:00 62 18 98/34 (55) 97 05/24/20 00:00 98.2 63 20 101/32 (55) 95 05/24/20 00:00 Non-Rebreather 14.0 05/23/20 23:19 64 05/23/20 23:00 70 19 105/39 (61) 96 05/23/20 22:00 70 19 101/38 (59) 95 05/23/20 21:00 82 22 110/76 (87) 90 05/23/20 20:00 98.2 69 20 111/39 (63) 95 05/23/20 20:00 14.0 55 05/23/20 20:00 Non-Rebreather 14.0 05/23/20 19:29 71 05/23/20 19:00 74 22 106/40 (62) 77 05/23/20 18:00 69 17 106/50 (68) 95 05/23/20 17:00 69 17 111/59 (76) 94 Intake and Output 05/23/20 05/24/20 19:00 07:00 Intake Total 550 ml 599.167 ml Output Total 900 ml 800 ml Balance -350 ml -200.833 ml IV Total 550 ml 599.167 ml Output Urine Total 900 ml 800 ml Laboratory Tests Test 05/23/20 20:20 05/24/20 04:00 05/24/20 14:56 Activated Partial Thromboplast Time 27 SEC (23-33) White Blood Count 7.2 K/UL (4.8-10.8) Red Blood Count 2.39 M/UL (4.20-5.40) L Hemoglobin 7.8 G/DL (12.0-16.0) L Hematocrit 22.1 % (37.0-47.0) L Mean Corpuscular Volume 92 FL (80-99) Mean Corpuscular Hemoglobin 32.7 PG (27.0-31.0) H Mean Corpuscular Hemoglobin Concent 35.4 G/DL (32.0-36.0) Red Cell Distribution Width 14.4 % (11.6-14.8) Platelet Count 187 K/UL (150-450) Mean Platelet Volume 7.1 FL (6.5-10.1) Neutrophils (%) (Auto) % (45.0-75.0) Lymphocytes (%) (Auto) % (20.0-45.0) Monocytes (%) (Auto) % (1.0-10.0) Eosinophils (%) (Auto) % (0.0-3.0) Basophils (%) (Auto) % (0.0-2.0) Differential Total Cells Counted 100 Neutrophils % (Manual) 86 % (45-75) H Lymphocytes % (Manual) 11 % (20-45) L Monocytes % (Manual) 1 % (1-10) Eosinophils % (Manual) 2 % (0-3) Basophils % (Manual) 0 % (0-2) Band Neutrophils 0 % (0-8) Platelet Estimate Adequate Platelet Morphology Normal Hypochromasia 1+ Anisocytosis 1+ Sodium Level 144 MMOL/L (136-145) Potassium Level 3.5 MMOL/L (3.5-5.1) Chloride Level 110 MMOL/L (98-107) H Carbon Dioxide Level 35 MMOL/L (21-32) H Anion Gap 0 mmol/L (5-15) L Blood Urea Nitrogen 25 mg/dL (7-18) H Creatinine 0.8 MG/DL (0.55-1.30) Estimat Glomerular Filtration Rate > 60 mL/min (>60) Glucose Level 126 MG/DL (74-106) H Calcium Level 7.7 MG/DL (8.5-10.1) L Phosphorus Level 2.5 MG/DL (2.5-4.9) Magnesium Level 1.8 MG/DL (1.8-2.4) Total Bilirubin 1.0 MG/DL (0.2-1.0) Aspartate Amino Transf (AST/SGOT) 15 U/L (15-37) Alanine Aminotransferase (ALT/SGPT) 16 U/L (12-78) Alkaline Phosphatase 40 U/L (46-116) L C-Reactive Protein, Quantitative 6.7 mg/dL (0.00-0.90) H Pro-B-Type Natriuretic Peptide 2412 pg/mL (0-125) H Total Protein 5.8 G/DL (6.4-8.2) L Albumin 2.4 G/DL (3.4-5.0) L Globulin 3.4 g/dL Albumin/Globulin Ratio 0.7 (1.0-2.7) L Arterial Blood pH 7.455 (7.350-7.450) Arterial Blood Partial Pressure CO2 43.4 mmHg (35.0-45.0) Arterial Blood Partial Pressure O2 255.6 mmHg (75.0-100.0) H Arterial Blood HCO3 29.8 mmol/L (22.0-26.0) H Arterial Blood Oxygen Saturation 98.6 % (95-100) Arterial Blood Base Excess 5.4 (-2-2) H Raphael Test Positive Objective HEAD AND NECK: Positive JVD. LUNGS: Decreased breath sounds. CARDIOVASCULAR: Regular S1 and S2 with no gallop. ABDOMEN: Obese. EXTREMITIES: Bilateral 2+ pitting edema. Cameron Davies MD May 24, 2020 16:23
--- NOTE | 2020-05-24 18:00 | Surgery Progress Note ---
Surgery Progress Note Subjective Symptoms: improved Objective Last 24 Hour Vital Signs Date Time Temp Pulse Resp B/P (MAP) Pulse Ox O2 Delivery O2 Flow Rate FiO2 05/24/20 17:00 67 19 119/35 (63) 100 05/24/20 16:00 73 20 107/38 (61) 100 05/24/20 16:00 70 05/24/20 15:00 81 19 131/51 (77) 100 05/24/20 14:00 83 18 98/38 (58) 100 05/24/20 13:00 74 17 93/52 (66) 93 05/24/20 12:00 98.7 74 19 115/40 (65) 76 05/24/20 12:00 Nasal Cannula 4.0 05/24/20 12:00 81 05/24/20 11:00 67 18 109/34 (59) 95 05/24/20 10:00 66 19 114/33 (60) 99 05/24/20 09:00 63 13 109/32 (57) 97 05/24/20 08:00 66 05/24/20 08:00 98.4 63 20 110/42 (64) 99 05/24/20 08:00 Nasal Cannula 4.0 05/24/20 07:00 66 23 109/33 (58) 99 05/24/20 06:00 63 23 99/28 (51) 97 05/24/20 05:00 63 19 103/29 (53) 97 05/24/20 04:00 Non-Rebreather 14.0 05/24/20 04:00 98.2 63 17 97/27 (50) 99 05/24/20 03:01 67 05/24/20 03:00 74 23 114/29 (57) 99 05/24/20 02:00 61 24 105/27 (53) 94 05/24/20 01:00 62 18 98/34 (55) 97 05/24/20 00:00 98.2 63 20 101/32 (55) 95 05/24/20 00:00 Non-Rebreather 14.0 05/23/20 23:19 64 05/23/20 23:00 70 19 105/39 (61) 96 05/23/20 22:00 70 19 101/38 (59) 95 05/23/20 21:00 82 22 110/76 (87) 90 05/23/20 20:00 98.2 69 20 111/39 (63) 95 05/23/20 20:00 14.0 55 05/23/20 20:00 Non-Rebreather 14.0 05/23/20 19:29 71 05/23/20 19:00 74 22 106/40 (62) 77 I&O Intake and Output 05/23/20 05/24/20 19:00 07:00 Intake Total 550 ml 599.167 ml Output Total 900 ml 800 ml Balance -350 ml -200.833 ml IV Total 550 ml 599.167 ml Output Urine Total 900 ml 800 ml Dressing: saturated Cardiovascular: RSR Respiratory: decreased breath sounds Abdomen: non-tender, present bowel sounds Extremities: no edema, no tenderness, no cyanosis Laboratory Tests Test 05/23/20 20:20 05/24/20 04:00 05/24/20 14:56 Activated Partial Thromboplast Time 27 SEC (23-33) White Blood Count 7.2 K/UL (4.8-10.8) Red Blood Count 2.39 M/UL (4.20-5.40) L Hemoglobin 7.8 G/DL (12.0-16.0) L Hematocrit 22.1 % (37.0-47.0) L Mean Corpuscular Volume 92 FL (80-99) Mean Corpuscular Hemoglobin 32.7 PG (27.0-31.0) H Mean Corpuscular Hemoglobin Concent 35.4 G/DL (32.0-36.0) Red Cell Distribution Width 14.4 % (11.6-14.8) Platelet Count 187 K/UL (150-450) Mean Platelet Volume 7.1 FL (6.5-10.1) Neutrophils (%) (Auto) % (45.0-75.0) Lymphocytes (%) (Auto) % (20.0-45.0) Monocytes (%) (Auto) % (1.0-10.0) Eosinophils (%) (Auto) % (0.0-3.0) Basophils (%) (Auto) % (0.0-2.0) Differential Total Cells Counted 100 Neutrophils % (Manual) 86 % (45-75) H Lymphocytes % (Manual) 11 % (20-45) L Monocytes % (Manual) 1 % (1-10) Eosinophils % (Manual) 2 % (0-3) Basophils % (Manual) 0 % (0-2) Band Neutrophils 0 % (0-8) Platelet Estimate Adequate Platelet Morphology Normal Hypochromasia 1+ Anisocytosis 1+ Sodium Level 144 MMOL/L (136-145) Potassium Level 3.5 MMOL/L (3.5-5.1) Chloride Level 110 MMOL/L (98-107) H Carbon Dioxide Level 35 MMOL/L (21-32) H Anion Gap 0 mmol/L (5-15) L Blood Urea Nitrogen 25 mg/dL (7-18) H Creatinine 0.8 MG/DL (0.55-1.30) Estimat Glomerular Filtration Rate > 60 mL/min (>60) Glucose Level 126 MG/DL (74-106) H Calcium Level 7.7 MG/DL (8.5-10.1) L Phosphorus Level 2.5 MG/DL (2.5-4.9) Magnesium Level 1.8 MG/DL (1.8-2.4) Total Bilirubin 1.0 MG/DL (0.2-1.0) Aspartate Amino Transf (AST/SGOT) 15 U/L (15-37) Alanine Aminotransferase (ALT/SGPT) 16 U/L (12-78) Alkaline Phosphatase 40 U/L (46-116) L C-Reactive Protein, Quantitative 6.7 mg/dL (0.00-0.90) H Pro-B-Type Natriuretic Peptide 2412 pg/mL (0-125) H Total Protein 5.8 G/DL (6.4-8.2) L Albumin 2.4 G/DL (3.4-5.0) L Globulin 3.4 g/dL Albumin/Globulin Ratio 0.7 (1.0-2.7) L Arterial Blood pH 7.455 (7.350-7.450) Arterial Blood Partial Pressure CO2 43.4 mmHg (35.0-45.0) Arterial Blood Partial Pressure O2 255.6 mmHg (75.0-100.0) H Arterial Blood HCO3 29.8 mmol/L (22.0-26.0) H Arterial Blood Oxygen Saturation 98.6 % (95-100) Arterial Blood Base Excess 5.4 (-2-2) H Raphael Test Positive Plan Problems: (1) Anemia (2) Hypercapnic respiratory failure Assessment & Plan: respiratory insufficiency requiring prolonged ventilatory support unable to wean vent safely after multiple attempts discussed with pcp. discussed with pulm discussed with patient guardian. patient unable to consent. no nok or poa. given critical care and condition not recommended to await court decision which during pandemic can take long time. medically necessary to proceed with trach in patients best interest. 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
--- NOTE | 2020-05-24 19:40 | General Progress Note ---
Subjective ROS Limited/Unobtainable: Yes Allergies: Coded Allergies: LITHIUM (Verified Allergy, Unknown, 02/07/19) Objective Last 24 Hour Vital Signs Date Time Temp Pulse Resp B/P (MAP) Pulse Ox O2 Delivery O2 Flow Rate FiO2 05/24/20 19:00 63 21 104/32 (56) 98 05/24/20 18:00 63 18 101/38 (59) 98 05/24/20 17:00 67 19 119/35 (63) 100 05/24/20 16:00 73 20 107/38 (61) 100 05/24/20 16:00 Venturi Mask 8.0 05/24/20 16:00 98.6 05/24/20 16:00 70 05/24/20 15:00 81 19 131/51 (77) 100 05/24/20 14:00 83 18 98/38 (58) 100 05/24/20 13:00 74 17 93/52 (66) 93 05/24/20 12:00 98.7 74 19 115/40 (65) 76 05/24/20 12:00 Nasal Cannula 4.0 05/24/20 12:00 81 05/24/20 11:00 67 18 109/34 (59) 95 05/24/20 10:00 66 19 114/33 (60) 99 05/24/20 09:00 63 13 109/32 (57) 97 05/24/20 08:00 66 05/24/20 08:00 98.4 63 20 110/42 (64) 99 05/24/20 08:00 Nasal Cannula 4.0 05/24/20 07:00 66 23 109/33 (58) 99 05/24/20 06:00 63 23 99/28 (51) 97 05/24/20 05:00 63 19 103/29 (53) 97 05/24/20 04:00 Non-Rebreather 14.0 05/24/20 04:00 98.2 63 17 97/27 (50) 99 05/24/20 03:01 67 05/24/20 03:00 74 23 114/29 (57) 99 05/24/20 02:00 61 24 105/27 (53) 94 05/24/20 01:00 62 18 98/34 (55) 97 05/24/20 00:00 98.2 63 20 101/32 (55) 95 05/24/20 00:00 Non-Rebreather 14.0 05/23/20 23:19 64 05/23/20 23:00 70 19 105/39 (61) 96 05/23/20 22:00 70 19 101/38 (59) 95 05/23/20 21:00 82 22 110/76 (87) 90 05/23/20 20:00 98.2 69 20 111/39 (63) 95 05/23/20 20:00 14.0 55 05/23/20 20:00 Non-Rebreather 14.0 Intake and Output 05/23/20 05/24/20 19:00 07:00 Intake Total 550 ml 599.167 ml Output Total 900 ml 800 ml Balance -350 ml -200.833 ml IV Total 550 ml 599.167 ml Output Urine Total 900 ml 800 ml Laboratory Tests 05/23/20 20:20: Activated Partial Thromboplast Time 27 05/24/20 04:00: White Blood Count 7.2, Red Blood Count 2.39L, Hemoglobin 7.8L, Hematocrit 22.1L, Mean Corpuscular Volume 92, Mean Corpuscular Hemoglobin 32.7H, Mean Corpuscular Hemoglobin Concent 35.4, Red Cell Distribution Width 14.4, Platelet Count 187, Mean Platelet Volume 7.1, Neutrophils (%) (Auto) , Lymphocytes (%) (Auto) , Monocytes (%) (Auto) , Eosinophils (%) (Auto) , Basophils (%) (Auto) , Differential Total Cells Counted 100, Neutrophils % (Manual) 86H, Lymphocytes % (Manual) 11L, Monocytes % (Manual) 1, Eosinophils % (Manual) 2, Basophils % (Manual) 0, Band Neutrophils 0, Platelet Estimate Adequate, Platelet Morphology Normal, Hypochromasia 1+, Anisocytosis 1+, Sodium Level 144, Potassium Level 3.5, Chloride Level 110H, Carbon Dioxide Level 35H, Anion Gap 0L, Blood Urea Nitrogen 25H, Creatinine 0.8, Estimat Glomerular Filtration Rate > 60, Glucose Level 126H, Calcium Level 7.7L, Phosphorus Level 2.5, Magnesium Level 1.8, Total Bilirubin 1.0, Aspartate Amino Transf (AST/SGOT) 15, Alanine Aminotransferase (ALT/SGPT) 16, Alkaline Phosphatase 40L, C-Reactive Protein, Quantitative 6.7H, Pro-B-Type Natriuretic Peptide 2412H, Total Protein 5.8L, Albumin 2.4L, Globulin 3.4, Albumin/Globulin Ratio 0.7L 05/24/20 14:56: Arterial Blood pH 7.455H, Arterial Blood Partial Pressure CO2 43.4, Arterial Blood Partial Pressure O2 255.6H, Arterial Blood HCO3 29.8H, Arterial Blood Oxygen Saturation 98.6, Arterial Blood Base Excess 5.4H, Raphael Test Positive Height (Feet): 5 Height (Inches): 3.00 Weight (Pounds): 183 Assessment/Plan Problem List: (1) Anemia ICD Codes: D64.9 - Anemia, unspecified SNOMED: 891759154 (2) Hypercapnic respiratory failure ICD Codes: J96.92 - Respiratory failure, unspecified with hypercapnia SNOMED: 264531345 (3) COVID-19 ICD Codes: U07.1 - COVID-19 SNOMED: 009022159 (4) COPD (chronic obstructive pulmonary disease) ICD Codes: J44.9 - Chronic obstructive pulmonary disease, unspecified SNOMED: 29801135 (5) Psychosis ICD Codes: F29 - Unspecified psychosis not due to a substance or known physiological condition SNOMED: 38022009 (6) Hypoxia ICD Codes: R09.02 - Hypoxemia SNOMED: 689873669 (7) Renal failure (ARF), acute on chronic ICD Codes: N17.9 - Acute kidney failure, unspecified; N18.9 - Chronic kidney disease, unspecified SNOMED: 840683073 (8) CHF exacerbation ICD Codes: I50.9 - Heart failure, unspecified SNOMED: 456491147, 79117576730457 Status: progressing, unchanged Assessment/Plan: on non rebreather afebrile consulted dr mahoney for feeding and malnutrition copd exacerbation no wheezing covid positive pna septic shock chf Dani Perera MD May 24, 2020 19:40
[2020-05-24] MEDS ORDERED: Varibar Thin Liquid powder 148gm MC PRN (19:45)
[2020-05-24] MEDS ORDERED: Varibar Nectar 240ml MC PRN (19:45)
[2020-05-24] MEDS ORDERED: Varibar Pudding 230ml MC PRN (19:45)
[2020-05-24] MEDS ORDERED: Varibar Honey 250ml MC PRN (19:45)
[2020-05-24] MEDS: Dyna-Hex 2% Top Sol 2oz TOPIC SCH (20:18)
[2020-05-25] VITALS (7 sets, daily range): BP systolic 89–114; BP diastolic 31–49
[2020-05-25] MEDS: D5 1/2NS 1,000 ML IV SCH ×2 (00:48→20:30)
--- NOTE | 2020-05-25 09:05 | Pulmonology Progress Note ---
Subjective ROS Limited/Unobtainable: Yes Interval Events: s/p self extubation; restless; ABG adequate Constitutional: Denies: fever HEENT: Repors: no symptoms Respiratory: Reports: no symptoms Cardiovascular: Reports: no symptoms Gastrointestinal/Abdominal: Reports: no symptoms Genitourinary: Reports: no symptoms Allergies: Coded Allergies: LITHIUM (Verified Allergy, Unknown, 02/07/19) Objective Last 24 Hour Vital Signs Date Time Temp Pulse Resp B/P (MAP) Pulse Ox O2 Delivery O2 Flow Rate FiO2 05/25/20 08:00 97.9 60 20 102/35 (57) 100 05/25/20 04:00 Venturi Mask 8.0 05/25/20 04:00 98.5 65 17 89/40 (56) 100 05/25/20 04:00 68 05/25/20 01:00 61 17 100/36 (57) 100 05/25/20 00:00 Venturi Mask 8.0 05/25/20 00:00 98.9 61 17 96/31 (52) 100 05/24/20 23:00 61 17 109/29 (55) 98 05/24/20 22:00 62 17 99/30 (53) 98 05/24/20 21:00 62 17 109/29 (55) 99 05/24/20 20:12 97 Venturi Mask 14.0 55 05/24/20 20:00 98.7 64 18 106/32 (56) 100 05/24/20 20:00 77 05/24/20 20:00 Venturi Mask 8.0 05/24/20 19:00 63 21 104/32 (56) 98 05/24/20 18:00 63 18 101/38 (59) 98 05/24/20 17:00 67 19 119/35 (63) 100 05/24/20 16:00 73 20 107/38 (61) 100 05/24/20 16:00 Venturi Mask 8.0 05/24/20 16:00 98.6 05/24/20 16:00 70 05/24/20 15:00 81 19 131/51 (77) 100 05/24/20 14:00 83 18 98/38 (58) 100 05/24/20 13:00 74 17 93/52 (66) 93 05/24/20 12:00 98.7 74 19 115/40 (65) 76 05/24/20 12:00 Nasal Cannula 4.0 05/24/20 12:00 81 05/24/20 11:00 67 18 109/34 (59) 95 05/24/20 10:00 66 19 114/33 (60) 99 Intake and Output 05/24/20 05/25/20 19:00 07:00 Intake Total 650 ml 305 ml Output Total 810 ml 330 ml Balance -160 ml -25 ml Intake Oral 100 ml IV Total 550 ml 305 ml Output Urine Total 810 ml 330 ml General Appearance: no acute distress HEENT: normocephalic Respiratory: no respiratory distress, decreased breath sounds Cardiovascular: normal rate Abdomen: soft, non tender, other - obese, NG tube Extremities: other - b/l 2+ pitting edema Neurologic: disoriented Laboratory Tests 05/24/20 14:56: Arterial Blood pH 7.455H, Arterial Blood Partial Pressure CO2 43.4, Arterial Blood Partial Pressure O2 255.6H, Arterial Blood HCO3 29.8H, Arterial Blood Oxygen Saturation 98.6, Arterial Blood Base Excess 5.4H, Raphael Test Positive Current Medications Medications (Trade) Dose Ordered Sig/Angie Route PRN Reason Start Time Stop Time Status Last Admin Dose Admin Acetaminophen (Tylenol) 650 mg Q6H PRN NG Fever >100.5 05/14/20 21:00 06/13/20 20:59 05/14/20 21:10 Acetaminophen (Tylenol) 650 mg Q6H PRN NG Mild Pain (Pain Scale 1-3) 05/14/20 21:00 06/13/20 20:59 05/17/20 11:06 Barium Sulfate (Varibar Honey) 250 ml NOW PRN MC RAD 05/24/20 19:45 05/27/20 19:34 Barium Sulfate (Varibar [place]) 240 ml NOW PRN MC RAD 05/24/20 19:45 05/27/20 19:34 Barium Sulfate (Varibar Pudding) 230 ml NOW PRN MC RAD 05/24/20 19:45 05/27/20 19:34 Barium Sulfate (Varibar Thin Liquid powder) 148 gm NOW PRN MC RAD 05/24/20 19:45 05/27/20 19:34 Chlorhexidine Gluconate (Ruba-Hex 2%) 1 applic DAILY@1999 TOPIC 05/15/20 20:00 08/13/20 19:59 05/24/20 20:18 Clonidine HCl (Catapres Tab) 0.1 mg Q4H PRN ORAL sbp>170 05/11/20 17:15 08/09/20 17:14 Dextrose/Sodium Chloride 1,000 ml @ 50 mls/hr Q20H IV 05/22/20 12:00 06/21/20 11:59 05/25/20 00:48 Haloperidol Lactate (Haldol) 5 mg Q6H PRN IM Agitation 05/13/20 20:45 06/27/20 20:44 05/24/20 20:19 Levothyroxine Sodium (Synthroid) 50 mcg DAILY@0630 ORAL 05/14/20 06:30 06/13/20 06:29 05/25/20 06:12 Quetiapine Fumarate (SEROqueL) 50 mg Q12HR ORAL 05/24/20 21:00 07/08/20 20:59 05/25/20 08:54 Assessment/Plan Assessment/Plan 1. Bilateral COVID-19 multilobar pneumonia. - s/p ETT - Afebrile - Continue Azithromycin, Ceftriaxone, dexamethasone - On remdesivir - defer to ID 2. Hx of COPD. 3. Schizophrenia/psychosis - On dopamine, haloperidol 4. Hypoxia. - on nasal canula, s/p self extubation 5. Anemia - hgb 9.6 -> 7.9 -> 8.4 -> 7.8 6. Azotemia/renal failure - UA: Positive leuk esterase, protein, RBC, WBC (05/11/2020) - BUN 32 -> 39 -> 34 -> 25 DVT ppx The care for this patient was discussed with my supervising physician Time spent for this case was 31 minutes The patient was seen and examined at bedside and all new and available data was reviewed in the patients chart. I agree with the above findings, impression, and plan. (Patient was seen earlier today. Signature timestamp does not reflect patient encounter time) Sincere Martinez MD, MD May 25, 2020 09:05
--- NOTE | 2020-05-25 11:01 | Surgery Progress Note ---
Surgery Progress Note Subjective Additional Comments doing well extubated no n/v comfortable Objective Last 24 Hour Vital Signs Date Time Temp Pulse Resp B/P (MAP) Pulse Ox O2 Delivery O2 Flow Rate FiO2 05/25/20 08:00 62 05/25/20 08:00 97.9 60 20 102/35 (57) 100 05/25/20 08:00 Venturi Mask 15.0 05/25/20 04:00 Venturi Mask 8.0 05/25/20 04:00 98.5 65 17 89/40 (56) 100 05/25/20 04:00 68 05/25/20 01:00 61 17 100/36 (57) 100 05/25/20 00:00 Venturi Mask 8.0 05/25/20 00:00 98.9 61 17 96/31 (52) 100 05/24/20 23:00 61 17 109/29 (55) 98 05/24/20 22:00 62 17 99/30 (53) 98 05/24/20 21:00 62 17 109/29 (55) 99 05/24/20 20:12 97 Venturi Mask 14.0 55 05/24/20 20:00 98.7 64 18 106/32 (56) 100 05/24/20 20:00 77 05/24/20 20:00 Venturi Mask 8.0 05/24/20 19:00 63 21 104/32 (56) 98 05/24/20 18:00 63 18 101/38 (59) 98 05/24/20 17:00 67 19 119/35 (63) 100 05/24/20 16:00 73 20 107/38 (61) 100 05/24/20 16:00 Venturi Mask 8.0 05/24/20 16:00 98.6 05/24/20 16:00 70 05/24/20 15:00 81 19 131/51 (77) 100 05/24/20 14:00 83 18 98/38 (58) 100 05/24/20 13:00 74 17 93/52 (66) 93 05/24/20 12:00 98.7 74 19 115/40 (65) 76 05/24/20 12:00 Nasal Cannula 4.0 05/24/20 12:00 81 I&O Intake and Output 05/24/20 05/25/20 19:00 07:00 Intake Total 650 ml 305 ml Output Total 810 ml 330 ml Balance -160 ml -25 ml Intake Oral 100 ml IV Total 550 ml 305 ml Output Urine Total 810 ml 330 ml Dressing: saturated Cardiovascular: RSR Respiratory: decreased breath sounds Abdomen: non-tender, present bowel sounds Extremities: no tenderness, no cyanosis Laboratory Tests Test 05/24/20 14:56 Arterial Blood pH 7.455 (7.350-7.450) Arterial Blood Partial Pressure CO2 43.4 mmHg (35.0-45.0) Arterial Blood Partial Pressure O2 255.6 mmHg (75.0-100.0) H Arterial Blood HCO3 29.8 mmol/L (22.0-26.0) H Arterial Blood Oxygen Saturation 98.6 % (95-100) Arterial Blood Base Excess 5.4 (-2-2) H Raphael Test Positive Plan Problems: (1) Anemia (2) Hypercapnic respiratory failure Assessment & Plan: respiratory insufficiency requiring prolonged ventilatory support unable to wean vent safely after multiple attempts discussed with pcp. discussed with pulm discussed with patient guardian. patient unable to consent. no nok or poa. given critical care and condition not recommended to await court decision which during pandemic can take long time. medically necessary to proceed with trach in patients best interest. 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
--- NOTE | 2020-05-25 12:10 | General Progress Note ---
Subjective ROS Limited/Unobtainable: No Allergies: Coded Allergies: LITHIUM (Verified Allergy, Unknown, 02/07/19) Objective Last 24 Hour Vital Signs Date Time Temp Pulse Resp B/P (MAP) Pulse Ox O2 Delivery O2 Flow Rate FiO2 05/25/20 08:00 62 05/25/20 08:00 97.9 60 20 102/35 (57) 100 05/25/20 08:00 Venturi Mask 15.0 05/25/20 04:00 Venturi Mask 8.0 05/25/20 04:00 98.5 65 17 89/40 (56) 100 05/25/20 04:00 68 05/25/20 01:00 61 17 100/36 (57) 100 05/25/20 00:00 Venturi Mask 8.0 05/25/20 00:00 98.9 61 17 96/31 (52) 100 05/24/20 23:00 61 17 109/29 (55) 98 05/24/20 22:00 62 17 99/30 (53) 98 05/24/20 21:00 62 17 109/29 (55) 99 05/24/20 20:12 97 Venturi Mask 14.0 55 05/24/20 20:00 98.7 64 18 106/32 (56) 100 05/24/20 20:00 77 05/24/20 20:00 Venturi Mask 8.0 05/24/20 19:00 63 21 104/32 (56) 98 05/24/20 18:00 63 18 101/38 (59) 98 05/24/20 17:00 67 19 119/35 (63) 100 05/24/20 16:00 73 20 107/38 (61) 100 05/24/20 16:00 Venturi Mask 8.0 05/24/20 16:00 98.6 05/24/20 16:00 70 05/24/20 15:00 81 19 131/51 (77) 100 05/24/20 14:00 83 18 98/38 (58) 100 05/24/20 13:00 74 17 93/52 (66) 93 Intake and Output 05/24/20 05/25/20 19:00 07:00 Intake Total 650 ml 305 ml Output Total 810 ml 330 ml Balance -160 ml -25 ml Intake Oral 100 ml IV Total 550 ml 305 ml Output Urine Total 810 ml 330 ml Laboratory Tests 05/24/20 14:56: Arterial Blood pH 7.455H, Arterial Blood Partial Pressure CO2 43.4, Arterial Blood Partial Pressure O2 255.6H, Arterial Blood HCO3 29.8H, Arterial Blood Oxygen Saturation 98.6, Arterial Blood Base Excess 5.4H, Raphael Test Positive Height (Feet): 5 Height (Inches): 3.00 Weight (Pounds): 183 General Appearance: lethargic EENT: PERRL/EOMI Neck: supple Cardiovascular: normal rate Respiratory/Chest: decreased breath sounds Abdomen: hypoactive bowel sounds Extremities: non-tender Assessment/Plan Problem List: (1) Hypertension ICD Codes: I10 - Essential (primary) hypertension SNOMED: 09057541 (2) Schizophrenia ICD Codes: F20.9 - Schizophrenia, unspecified SNOMED: 67700362 (3) Hyperlipidemia ICD Codes: E78.5 - Hyperlipidemia, unspecified SNOMED: 15436784 (4) Parkinson disease ICD Codes: G20 - Parkinson's disease SNOMED: 51870100 (5) Anemia ICD Codes: D64.9 - Anemia, unspecified SNOMED: 330729647 (6) Obese ICD Codes: E66.9 - Obesity, unspecified SNOMED: 171022323, 716699201 Status: progressing, unchanged Assessment/Plan: ppi anemia work up cbc in am GI procedures if needed bowel regimen Kirk Vidal MD May 25, 2020 12:10
--- NOTE | 2020-05-25 15:34 | Cardiac Electrophysiology PN ---
Assessment/Plan Assessment/Plan 1. Covid PNA and respiratory failure. Self extubated on Nasal cannula 2. History of COPD. 3. Hypotension. Off Dopamine. EF 55% 4. Bradycardia resolved and is off Dopamine 5. Schizophrenia and psychosis. YOSELYN RN Subjective Subjective Self extubated 05/22/20 on Nasal cannula in ICU in Covid isolation Diastolic BP running low Objective Last 24 Hour Vital Signs Date Time Temp Pulse Resp B/P (MAP) Pulse Ox O2 Delivery O2 Flow Rate FiO2 05/25/20 12:17 Venturi Mask 15.0 05/25/20 12:00 71 05/25/20 12:00 97.3 62 22 102/49 (66) 100 05/25/20 08:00 62 05/25/20 08:00 97.9 60 20 102/35 (57) 100 05/25/20 08:00 Venturi Mask 15.0 05/25/20 04:00 Venturi Mask 8.0 05/25/20 04:00 98.5 65 17 89/40 (56) 100 05/25/20 04:00 68 05/25/20 01:00 61 17 100/36 (57) 100 05/25/20 00:00 Venturi Mask 8.0 05/25/20 00:00 98.9 61 17 96/31 (52) 100 05/24/20 23:00 61 17 109/29 (55) 98 05/24/20 22:00 62 17 99/30 (53) 98 05/24/20 21:00 62 17 109/29 (55) 99 05/24/20 20:12 97 Venturi Mask 14.0 55 05/24/20 20:00 98.7 64 18 106/32 (56) 100 05/24/20 20:00 77 05/24/20 20:00 Venturi Mask 8.0 05/24/20 19:00 63 21 104/32 (56) 98 05/24/20 18:00 63 18 101/38 (59) 98 05/24/20 17:00 67 19 119/35 (63) 100 05/24/20 16:00 73 20 107/38 (61) 100 05/24/20 16:00 Venturi Mask 8.0 05/24/20 16:00 98.6 05/24/20 16:00 70 Intake and Output 05/24/20 05/25/20 19:00 07:00 Intake Total 650 ml 305 ml Output Total 810 ml 330 ml Balance -160 ml -25 ml Intake Oral 100 ml IV Total 550 ml 305 ml Output Urine Total 810 ml 330 ml Objective HEAD AND NECK: Positive JVD. LUNGS: Decreased breath sounds. CARDIOVASCULAR: Regular S1 and S2 with no gallop. ABDOMEN: Obese. EXTREMITIES: Bilateral 2+ pitting edema. Cameron Davies MD May 25, 2020 15:34
[2020-05-25] MEDS: Docusate 100mg cap ORAL SCH (18:00)
--- NOTE | 2020-05-25 18:09 | Nephrology Progress Note ---
Assessment/Plan Problem List: (1) Renal failure (ARF), acute on chronic (2) Hypercapnic respiratory failure (3) CHF exacerbation Assessment Azotemia/renal failure Acute respiratory failure most likely secondary to CHF, on mechanical ventilation History of COPD Hypertension Hyperlipemia Schizophrenia/psychosis Plan May 25: On Venturi mask. Lethargic. No labs drawn today. Will monitor renal parameters. Per orders. May 24: Remains extubated. Will start on diet with high alert for possible aspiration. Continue to monitor renal parameters. May 23: Continues to be extubated. On nonrebreathing mask. Labs reviewed. Renal parameters stable. Discussed with RN. Continue per current management. May 22: Now extubated on nonrebreathing mask. Labs reviewed. Renal parameters stable. Abnormal electrolytes addressed. Discussed with RN. May 21: Remains intubated. Labs reviewed. Abnormal electrolytes addressed. Discussed with RN. May 20: Remains intubated. Abnormal electrolyte noted on today's lab results and addressed. Continue per consultants. May 19: Patient remains intubated. Labs reviewed. Abnormal electrolytes addressed. Continue per current management. May 18: Patient seen in ICU. Remains intubated. Weaning is being tried. Discussed with RN. Labs reviewed. Abnormal electrolyte addressed. Continue per consultants. May 17: Labs reviewed. Remains intubated. Stable from renal standpoint of view. Continue weaning. Discussed with RN. May 16: Labs reviewed. Remains intubated. Remains full code. Stable from renal standpoint of view. Abnormal electrolytes addressed. May 15: Labs reviewed. Renal parameters stable. Discussed with RN. Patient remains intubated on ventilator and full code. Continue per consultants. May 14: Labs reviewed. Discussed with RN. Abnormal electrolyte addressed. Continue per current management. Patient seen in ICU. Discussed with RN. Today's labs pending. Patient remains on 6 mics of dopamine. Pulmonary support Monitor intake and output Monitor electrolytes Continue per consultants Per orders Subjective ROS Limited/Unobtainable: No Constitutional: Reports: malaise, weakness Objective Objective Last 24 Hour Vital Signs Date Time Temp Pulse Resp B/P (MAP) Pulse Ox O2 Delivery O2 Flow Rate FiO2 05/25/20 12:17 Venturi Mask 15.0 05/25/20 12:00 71 05/25/20 12:00 97.3 62 22 102/49 (66) 100 05/25/20 08:00 62 05/25/20 08:00 97.9 60 20 102/35 (57) 100 05/25/20 08:00 Venturi Mask 15.0 05/25/20 04:00 Venturi Mask 8.0 05/25/20 04:00 98.5 65 17 89/40 (56) 100 05/25/20 04:00 68 05/25/20 01:00 61 17 100/36 (57) 100 05/25/20 00:00 Venturi Mask 8.0 05/25/20 00:00 98.9 61 17 96/31 (52) 100 05/24/20 23:00 61 17 109/29 (55) 98 05/24/20 22:00 62 17 99/30 (53) 98 05/24/20 21:00 62 17 109/29 (55) 99 05/24/20 20:12 97 Venturi Mask 14.0 55 05/24/20 20:00 98.7 64 18 106/32 (56) 100 05/24/20 20:00 77 05/24/20 20:00 Venturi Mask 8.0 05/24/20 19:00 63 21 104/32 (56) 98 Intake and Output 05/24/20 05/25/20 19:00 07:00 Intake Total 650 ml 305 ml Output Total 810 ml 330 ml Balance -160 ml -25 ml Intake Oral 100 ml IV Total 550 ml 305 ml Output Urine Total 810 ml 330 ml Height (Feet): 5 Height (Inches): 3.00 Weight (Pounds): 183 General Appearance: lethargic EENT: other - On Venturi mask Cardiovascular: normal rate Respiratory/Chest: decreased breath sounds Abdomen: distended Bryan Ochoa MD May 25, 2020 18:09
[2020-05-25] MEDS: Miralax 17gm pkt ORAL SCH (20:31)
[2020-05-25] MEDS: Heparin 5000 units/ml inj SUBQ SCH (20:32)
--- NOTE | 2020-05-25 22:21 | General Progress Note ---
Subjective ROS Limited/Unobtainable: Yes Allergies: Coded Allergies: LITHIUM (Verified Allergy, Unknown, 02/07/19) Objective Last 24 Hour Vital Signs Date Time Temp Pulse Resp B/P (MAP) Pulse Ox O2 Delivery O2 Flow Rate FiO2 05/25/20 20:38 96 Venturi Mask 14.0 55 05/25/20 20:00 97.5 65 19 106/40 (62) 100 05/25/20 20:00 Venturi Mask 15.0 05/25/20 20:00 62 05/25/20 16:00 96.4 61 20 114/31 (58) 99 05/25/20 16:00 65 05/25/20 16:00 Venturi Mask 15.0 05/25/20 12:17 Venturi Mask 15.0 05/25/20 12:00 71 05/25/20 12:00 97.3 62 22 102/49 (66) 100 05/25/20 08:00 62 05/25/20 08:00 97.9 60 20 102/35 (57) 100 05/25/20 08:00 Venturi Mask 15.0 05/25/20 04:00 Venturi Mask 8.0 05/25/20 04:00 98.5 65 17 89/40 (56) 100 05/25/20 04:00 68 05/25/20 01:00 61 17 100/36 (57) 100 05/25/20 00:00 Venturi Mask 8.0 05/25/20 00:00 98.9 61 17 96/31 (52) 100 05/24/20 23:00 61 17 109/29 (55) 98 Intake and Output 05/24/20 05/25/20 19:00 07:00 Intake Total 650 ml 305 ml Output Total 810 ml 330 ml Balance -160 ml -25 ml Intake Oral 100 ml IV Total 550 ml 305 ml Output Urine Total 810 ml 330 ml Height (Feet): 5 Height (Inches): 3.00 Weight (Pounds): 183 Assessment/Plan Problem List: (1) Anemia ICD Codes: D64.9 - Anemia, unspecified SNOMED: 342271658 (2) Hypercapnic respiratory failure ICD Codes: J96.92 - Respiratory failure, unspecified with hypercapnia SNOMED: 638945660 (3) COVID-19 ICD Codes: U07.1 - COVID-19 SNOMED: 339930216 (4) COPD (chronic obstructive pulmonary disease) ICD Codes: J44.9 - Chronic obstructive pulmonary disease, unspecified SNOMED: 79506435 (5) Psychosis ICD Codes: F29 - Unspecified psychosis not due to a substance or known physiological condition SNOMED: 55074962 (6) Hypoxia ICD Codes: R09.02 - Hypoxemia SNOMED: 074661715 (7) Renal failure (ARF), acute on chronic ICD Codes: N17.9 - Acute kidney failure, unspecified; N18.9 - Chronic kidney disease, unspecified SNOMED: 896239444 (8) CHF exacerbation ICD Codes: I50.9 - Heart failure, unspecified SNOMED: 103909114, 22071626379763 Status: progressing, unchanged Assessment/Plan: decrease in oxygen requirement clinicially improving off icu covid positive pna septic shock chf Dani Perera MD May 25, 2020 22:21
[2020-05-26] VITALS: BP 139/94
[2020-05-26 04:00] VITALS: BP 105/37
[2020-05-26 06:58] LABS: HEMATOCRIT 19.7 % (37.0-47.0); MEAN CORPUSCULAR VOLUME 94 FL (80-99); PLATELET COUNT 152 K/UL (150-450); RED BLOOD COUNT 2.09 M/UL (4.20-5.40); RED CELL DISTRIBUTION WIDTH 13.8 % (11.6-14.8); WHITE BLOOD COUNT 5.8 K/UL (4.8-10.8)
[2020-05-26 07:01] LABS: HEMOGLOBIN 6.7 G/DL (12.0-16.0)
[2020-05-26 07:50] LABS: ALANINE AMINOTRANSFERASE 11 U/L (12-78); ALBUMIN 2.2 G/DL (3.4-5.0); ALBUMIN/GLOBULIN RATIO 0.7 (1.0-2.7); ALKALINE PHOSPHATASE 39 U/L (46-116); ANION GAP 4 mmol/L (5-15); ASPARTATE AMINO TRANSFERASE 13 U/L (15-37); BILIRUBIN,TOTAL 0.8 MG/DL (0.2-1.0); BLOOD UREA NITROGEN 20 mg/dL (7-18); CALCIUM 7.7 MG/DL (8.5-10.1); CARBON DIOXIDE 32 MMOL/L (21-32); CHLORIDE 110 MMOL/L (98-107); CREATININE 0.7 MG/DL (0.55-1.30); POTASSIUM 3.2 MMOL/L (3.5-5.1); SODIUM 146 MMOL/L (136-145)
[2020-05-26 08:00] VITALS: BP 135/45
[2020-05-26 08:05] LABS: PHOSPHORUS 2.1 MG/DL (2.5-4.9)
[2020-05-26 08:37] LABS: % IRON SATURATION 13 % (15-50); IRON 27 ug/dL (50-175); TOTAL IRON BINDING CAPACITY 208 ug/dL (250-450)
[2020-05-26] MEDS: Docusate 100mg cap ORAL SCH ×2 (08:46→17:21)
[2020-05-26] MEDS: Heparin 5000 units/ml inj SUBQ SCH ×2 (08:47→20:56)
[2020-05-26 09:37] LABS: HEMATOCRIT 21.4 % (37.0-47.0); HEMOGLOBIN 7.3 G/DL (12.0-16.0); MEAN CORPUSCULAR VOLUME 93 FL (80-99); PLATELET COUNT 166 K/UL (150-450); RED BLOOD COUNT 2.31 M/UL (4.20-5.40); RED CELL DISTRIBUTION WIDTH 15.5 % (11.6-14.8); WHITE BLOOD COUNT 5.9 K/UL (4.8-10.8)
[2020-05-26 09:47] LABS: ANION GAP 0 mmol/L (5-15); BLOOD UREA NITROGEN 19 mg/dL (7-18); CALCIUM 7.8 MG/DL (8.5-10.1); CARBON DIOXIDE 35 MMOL/L (21-32); CHLORIDE 110 MMOL/L (98-107); CREATININE 0.8 MG/DL (0.55-1.30); POTASSIUM 3.2 MMOL/L (3.5-5.1); SODIUM 145 MMOL/L (136-145)
--- NOTE | 2020-05-26 10:55 | Infectious Diseases Prog Note ---
Assessment/Plan Assessment/Plan IMPRESSION: COVID-19 disease, Acute respiratory failure, COPD, Diastolic CHF, Mitral valve regurgitation, Anemia, Parkinson disease, schizoaffective disorder, Dementia, Obstructive sleep apnea, Hypothyroidism. 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 RECOMMENDATION: Finished dexamethasone & Remdesivir course Observe off of antibiotic Subjective ROS Limited/Unobtainable: Yes Neurologic: Reports: confusion, other - on restraint Allergies: Coded Allergies: LITHIUM (Verified Allergy, Unknown, 02/07/19) Objective Last 24 Hour Vital Signs Date Time Temp Pulse Resp B/P (MAP) Pulse Ox O2 Delivery O2 Flow Rate FiO2 05/26/20 08:00 98.2 61 23 135/45 (75) 100 05/26/20 08:00 Venturi Mask 15.0 05/26/20 07:43 58 05/26/20 05:11 14.0 05/26/20 04:00 64 05/26/20 04:00 97.7 60 19 105/37 (59) 100 05/26/20 04:00 Venturi Mask 15.0 05/26/20 00:00 97.2 74 20 139/94 (109) 100 05/26/20 00:00 63 05/26/20 00:00 Venturi Mask 15.0 05/25/20 20:38 96 Venturi Mask 14.0 55 05/25/20 20:00 97.5 65 19 106/40 (62) 100 05/25/20 20:00 Venturi Mask 15.0 05/25/20 20:00 62 05/25/20 16:00 96.4 61 20 114/31 (58) 99 05/25/20 16:00 65 05/25/20 16:00 Venturi Mask 15.0 05/25/20 12:17 Venturi Mask 15.0 05/25/20 12:00 71 05/25/20 12:00 97.3 62 22 102/49 (66) 100 Height (Feet): 5 Height (Inches): 3.00 Weight (Pounds): 183 General Appearance: no acute distress HEENT: mucous membranes moist Respiratory/Chest: other - oxygen by mask Cardiovascular: normal rate Abdomen: soft, non tender Extremities: no edema Neurologic/Psychiatric: alert, responsive Laboratory Tests Test 05/26/20 03:50 05/26/20 09:05 White Blood Count 5.8 K/UL (4.8-10.8) 5.9 K/UL (4.8-10.8) Red Blood Count 2.09 M/UL (4.20-5.40) L 2.31 M/UL (4.20-5.40) L Hemoglobin 6.7 G/DL (12.0-16.0) *L 7.3 G/DL (12.0-16.0) L Hematocrit 19.7 % (37.0-47.0) L 21.4 % (37.0-47.0) L Mean Corpuscular Volume 94 FL (80-99) 93 FL (80-99) Mean Corpuscular Hemoglobin 31.9 PG (27.0-31.0) H 31.6 PG (27.0-31.0) H Mean Corpuscular Hemoglobin Concent 34.0 G/DL (32.0-36.0) 34.0 G/DL (32.0-36.0) Red Cell Distribution Width 13.8 % (11.6-14.8) 15.5 % (11.6-14.8) H Platelet Count 152 K/UL (150-450) 166 K/UL (150-450) Mean Platelet Volume 7.3 FL (6.5-10.1) 7.6 FL (6.5-10.1) Neutrophils (%) (Auto) % (45.0-75.0) % (45.0-75.0) Lymphocytes (%) (Auto) % (20.0-45.0) % (20.0-45.0) Monocytes (%) (Auto) % (1.0-10.0) % (1.0-10.0) Eosinophils (%) (Auto) % (0.0-3.0) % (0.0-3.0) Basophils (%) (Auto) % (0.0-2.0) % (0.0-2.0) Differential Total Cells Counted 100 Neutrophils % (Manual) 77 % (45-75) H Pending Lymphocytes % (Manual) 19 % (20-45) L Pending Monocytes % (Manual) 4 % (1-10) Eosinophils % (Manual) 0 % (0-3) Basophils % (Manual) 0 % (0-2) Band Neutrophils 0 % (0-8) Platelet Estimate Adequate Pending Platelet Morphology Normal Pending Hypochromasia 1+ Sodium Level 146 MMOL/L (136-145) H 145 MMOL/L (136-145) Potassium Level 3.2 MMOL/L (3.5-5.1) L 3.2 MMOL/L (3.5-5.1) L Chloride Level 110 MMOL/L (98-107) H 110 MMOL/L (98-107) H Carbon Dioxide Level 32 MMOL/L (21-32) 35 MMOL/L (21-32) H Anion Gap 4 mmol/L (5-15) L 0 mmol/L (5-15) L Blood Urea Nitrogen 20 mg/dL (7-18) H 19 mg/dL (7-18) H Creatinine 0.7 MG/DL (0.55-1.30) 0.8 MG/DL (0.55-1.30) Estimat Glomerular Filtration Rate > 60 mL/min (>60) > 60 mL/min (>60) Glucose Level 92 MG/DL (74-106) 113 MG/DL (74-106) H Calcium Level 7.7 MG/DL (8.5-10.1) L 7.8 MG/DL (8.5-10.1) L Phosphorus Level 2.1 MG/DL (2.5-4.9) L Magnesium Level 2.0 MG/DL (1.8-2.4) Iron Level 27 ug/dL (50-175) L Total Iron Binding Capacity 208 ug/dL (250-450) L Percent Iron Saturation 13 % (15-50) L Unsaturated Iron Binding 181 ug/dL (112-346) Total Bilirubin 0.8 MG/DL (0.2-1.0) Aspartate Amino Transf (AST/SGOT) 13 U/L (15-37) L Alanine Aminotransferase (ALT/SGPT) 11 U/L (12-78) L Alkaline Phosphatase 39 U/L (46-116) L C-Reactive Protein, Quantitative 14.4 mg/dL (0.00-0.90) H Pro-B-Type Natriuretic Peptide Pending Total Protein 5.5 G/DL (6.4-8.2) L Albumin 2.2 G/DL (3.4-5.0) L Globulin 3.3 g/dL Albumin/Globulin Ratio 0.7 (1.0-2.7) L Vitamin B12 Level 608 PG/ML (193-986) Folate 16.1 NG/ML (8.6-58.9) Current Medications Medications (Trade) Dose Ordered Sig/Angie Route PRN Reason Start Time Stop Time Status Last Admin Dose Admin Acetaminophen (Tylenol) 650 mg Q6H PRN NG Fever >100.5 05/14/20 21:00 06/13/20 20:59 05/14/20 21:10 Acetaminophen (Tylenol) 650 mg Q6H PRN NG Mild Pain (Pain Scale 1-3) 05/14/20 21:00 06/13/20 20:59 05/17/20 11:06 Barium Sulfate (Varibar Honey) 250 ml NOW PRN MC RAD 05/24/20 19:45 05/27/20 19:34 Barium Sulfate (Varibar [place]) 240 ml NOW PRN MC RAD 05/24/20 19:45 05/27/20 19:34 Barium Sulfate (Varibar Pudding) 230 ml NOW PRN MC RAD 05/24/20 19:45 05/27/20 19:34 Barium Sulfate (Varibar Thin Liquid powder) 148 gm NOW PRN MC RAD 05/24/20 19:45 05/27/20 19:34 Clonidine HCl (Catapres Tab) 0.1 mg Q4H PRN ORAL sbp>170 05/11/20 17:15 08/09/20 17:14 Dextrose/Sodium Chloride 1,000 ml @ 50 mls/hr Q20H IV 05/22/20 12:00 06/21/20 11:59 05/25/20 20:30 Docusate Sodium (Colace) 100 mg TWICE A DAY ORAL 05/25/20 18:00 06/24/20 17:59 05/26/20 08:46 Haloperidol Lactate (Haldol) 5 mg Q6H PRN IM Agitation 05/13/20 20:45 06/27/20 20:44 05/24/20 20:19 Heparin Sodium (Porcine) (Heparin 5000 units/ml) 5,000 units EVERY 12 HOURS SUBQ 05/25/20 21:00 07/09/20 20:59 05/25/20 20:32 Levothyroxine Sodium (Synthroid) 50 mcg DAILY@0630 ORAL 05/14/20 06:30 06/13/20 06:29 05/26/20 05:34 Pantoprazole (Protonix) 40 mg DAILY ORAL 05/26/20 09:00 06/25/20 08:59 05/26/20 08:46 Polyethylene Glycol (Miralax) 17 gm BEDTIME ORAL 05/25/20 21:00 06/24/20 20:59 05/25/20 20:31 Quetiapine Fumarate (SEROqueL) 50 mg Q12HR ORAL 05/24/20 21:00 07/08/20 20:59 05/26/20 08:46 Lei Chan MD May 26, 2020 10:55
--- NOTE | 2020-05-26 11:53 | General Progress Note ---
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 no abdominal symptoms H&H noted, repeat value higher Objective Last 24 Hour Vital Signs Date Time Temp Pulse Resp B/P (MAP) Pulse Ox O2 Delivery O2 Flow Rate FiO2 05/26/20 08:00 98.2 61 23 135/45 (75) 100 05/26/20 08:00 Venturi Mask 15.0 05/26/20 07:43 58 05/26/20 05:11 14.0 05/26/20 04:00 64 05/26/20 04:00 97.7 60 19 105/37 (59) 100 05/26/20 04:00 Venturi Mask 15.0 05/26/20 00:00 97.2 74 20 139/94 (109) 100 05/26/20 00:00 63 05/26/20 00:00 Venturi Mask 15.0 05/25/20 20:38 96 Venturi Mask 14.0 55 05/25/20 20:00 97.5 65 19 106/40 (62) 100 05/25/20 20:00 Venturi Mask 15.0 05/25/20 20:00 62 05/25/20 16:00 96.4 61 20 114/31 (58) 99 05/25/20 16:00 65 05/25/20 16:00 Venturi Mask 15.0 05/25/20 12:17 Venturi Mask 15.0 05/25/20 12:00 71 05/25/20 12:00 97.3 62 22 102/49 (66) 100 Intake and Output 05/25/20 05/26/20 19:00 07:00 Intake Total 50 ml 750 ml Output Total 600 ml 350 ml Balance -550 ml 400 ml Intake Oral 250 ml IV Total 50 ml 500 ml Output Urine Total 600 ml 350 ml Laboratory Tests 05/26/20 03:50: White Blood Count 5.8, Red Blood Count 2.09L, Hemoglobin 6.7*L, Hematocrit 19.7L , Mean Corpuscular Volume 94, Mean Corpuscular Hemoglobin 31.9H, Mean Corpuscular Hemoglobin Concent 34.0, Red Cell Distribution Width 13.8, Platelet Count 152, Mean Platelet Volume 7.3, Neutrophils (%) (Auto) , Lymphocytes (%) (Auto) , Monocytes (%) (Auto) , Eosinophils (%) (Auto) , Basophils (%) (Auto) , Differential Total Cells Counted 100, Neutrophils % (Manual) 77H, Lymphocytes % (Manual) 19L, Monocytes % (Manual) 4, Eosinophils % (Manual) 0, Basophils % (Manual) 0, Band Neutrophils 0, Platelet Estimate Adequate, Platelet Morphology Normal, Hypochromasia 1+, Sodium Level 146H, Potassium Level 3.2L, Chloride Level 110H, Carbon Dioxide Level 32, Anion Gap 4L, Blood Urea Nitrogen 20H, Creatinine 0.7, Estimat Glomerular Filtration Rate > 60, Glucose Level 92, Calcium Level 7.7L, Phosphorus Level 2.1L, Magnesium Level 2.0, Iron Level 27L, Total Iron Binding Capacity 208L, Percent Iron Saturation 13L, Unsaturated Iron Binding 181, Total Bilirubin 0.8, Aspartate Amino Transf (AST/SGOT) 13L, Alanine Aminotransferase (ALT/SGPT) 11L, Alkaline Phosphatase 39L, C-Reactive Protein, Quantitative 14.4H, Pro-B-Type Natriuretic Peptide [Pending], Total Protein 5.5L , Albumin 2.2L, Globulin 3.3, Albumin/Globulin Ratio 0.7L, Vitamin B12 Level 608, Folate 16.1 05/26/20 09:05: White Blood Count 5.9, Red Blood Count 2.31L, Hemoglobin 7.3L, Hematocrit 21.4L, Mean Corpuscular Volume 93, Mean Corpuscular Hemoglobin 31.6H, Mean Corpuscular Hemoglobin Concent 34.0, Red Cell Distribution Width 15.5H, Platelet Count 166, Mean Platelet Volume 7.6, Neutrophils (%) (Auto) , Lymphocytes (%) (Auto) , Monocytes (%) (Auto) , Eosinophils (%) (Auto) , Basophils (%) (Auto) , Differential Total Cells Counted 100, Neutrophils % (Manual) 80H, Lymphocytes % (Manual) 14L, Monocytes % (Manual) 6, Eosinophils % (Manual) 0, Basophils % (Manual) 0, Band Neutrophils 0, Platelet Estimate Adequate, Platelet Morphology Normal, Hypochromasia 1+, Sodium Level 145, Potassium Level 3.2L, Chloride Level 110H, Carbon Dioxide Level 35H, Anion Gap 0L, Blood Urea Nitrogen 19H, Creatinine 0.8, Estimat Glomerular Filtration Rate > 60, Glucose Level 113H, Calcium Level 7.8L, Anisocytosis 1+ Height (Feet): 5 Height (Inches): 3.00 Weight (Pounds): 183 Objective WDWN WW NAD resting comfortably Face mask O2 Assessment/Plan Status: progressing, unchanged Assessment/Plan: Assessment/Plan (1) Hypertension SNOMED: 57212992 (2) Schizophrenia SNOMED: 69967772 (3) Hyperlipidemia SNOMED: 19853988 (4) Parkinson disease SNOMED: 29586616 (5) Anemia - may need transfusion (6) Obese Recommendations ppi - increased to BID Follow H&H po as tolerated cbc in am GI procedures at a later date, if needed bowel regimen Aria Chicas MD May 26, 2020 11:53
[2020-05-26 12:00] VITALS: BP 116/47
--- NOTE | 2020-05-26 12:39 | Cardiac Electrophysiology PN ---
Assessment/Plan Assessment/Plan 1. Covid PNA and respiratory failure. Self extubated on 14 liter VM 2. History of COPD. 3. Hypotension. Off Dopamine. EF 55% 4. Bradycardia resolved and is off Dopamine 5. Schizophrenia and psychosis. YOSELYN RN Subjective Subjective Self extubated 05/22/20 on 14 liter VM out of ICU in Covid isolation Diastolic BP running low Objective Last 24 Hour Vital Signs Date Time Temp Pulse Resp B/P (MAP) Pulse Ox O2 Delivery O2 Flow Rate FiO2 05/26/20 12:00 97.9 60 22 116/47 (70) 98 05/26/20 08:00 98.2 61 23 135/45 (75) 100 05/26/20 08:00 Venturi Mask 15.0 05/26/20 07:43 58 05/26/20 05:11 14.0 05/26/20 04:00 64 05/26/20 04:00 97.7 60 19 105/37 (59) 100 05/26/20 04:00 Venturi Mask 15.0 05/26/20 00:00 97.2 74 20 139/94 (109) 100 05/26/20 00:00 63 05/26/20 00:00 Venturi Mask 15.0 05/25/20 20:38 96 Venturi Mask 14.0 55 05/25/20 20:00 97.5 65 19 106/40 (62) 100 05/25/20 20:00 Venturi Mask 15.0 05/25/20 20:00 62 05/25/20 16:00 96.4 61 20 114/31 (58) 99 05/25/20 16:00 65 05/25/20 16:00 Venturi Mask 15.0 Intake and Output 05/25/20 05/26/20 19:00 07:00 Intake Total 50 ml 750 ml Output Total 600 ml 350 ml Balance -550 ml 400 ml Intake Oral 250 ml IV Total 50 ml 500 ml Output Urine Total 600 ml 350 ml Laboratory Tests Test 05/26/20 03:50 05/26/20 09:05 White Blood Count 5.8 K/UL (4.8-10.8) 5.9 K/UL (4.8-10.8) Red Blood Count 2.09 M/UL (4.20-5.40) L 2.31 M/UL (4.20-5.40) L Hemoglobin 6.7 G/DL (12.0-16.0) *L 7.3 G/DL (12.0-16.0) L Hematocrit 19.7 % (37.0-47.0) L 21.4 % (37.0-47.0) L Mean Corpuscular Volume 94 FL (80-99) 93 FL (80-99) Mean Corpuscular Hemoglobin 31.9 PG (27.0-31.0) H 31.6 PG (27.0-31.0) H Mean Corpuscular Hemoglobin Concent 34.0 G/DL (32.0-36.0) 34.0 G/DL (32.0-36.0) Red Cell Distribution Width 13.8 % (11.6-14.8) 15.5 % (11.6-14.8) H Platelet Count 152 K/UL (150-450) 166 K/UL (150-450) Mean Platelet Volume 7.3 FL (6.5-10.1) 7.6 FL (6.5-10.1) Neutrophils (%) (Auto) % (45.0-75.0) % (45.0-75.0) Lymphocytes (%) (Auto) % (20.0-45.0) % (20.0-45.0) Monocytes (%) (Auto) % (1.0-10.0) % (1.0-10.0) Eosinophils (%) (Auto) % (0.0-3.0) % (0.0-3.0) Basophils (%) (Auto) % (0.0-2.0) % (0.0-2.0) Differential Total Cells Counted 100 100 Neutrophils % (Manual) 77 % (45-75) H 80 % (45-75) H Lymphocytes % (Manual) 19 % (20-45) L 14 % (20-45) L Monocytes % (Manual) 4 % (1-10) 6 % (1-10) Eosinophils % (Manual) 0 % (0-3) 0 % (0-3) Basophils % (Manual) 0 % (0-2) 0 % (0-2) Band Neutrophils 0 % (0-8) 0 % (0-8) Platelet Estimate Adequate Adequate Platelet Morphology Normal Normal Hypochromasia 1+ 1+ Sodium Level 146 MMOL/L (136-145) H 145 MMOL/L (136-145) Potassium Level 3.2 MMOL/L (3.5-5.1) L 3.2 MMOL/L (3.5-5.1) L Chloride Level 110 MMOL/L (98-107) H 110 MMOL/L (98-107) H Carbon Dioxide Level 32 MMOL/L (21-32) 35 MMOL/L (21-32) H Anion Gap 4 mmol/L (5-15) L 0 mmol/L (5-15) L Blood Urea Nitrogen 20 mg/dL (7-18) H 19 mg/dL (7-18) H Creatinine 0.7 MG/DL (0.55-1.30) 0.8 MG/DL (0.55-1.30) Estimat Glomerular Filtration Rate > 60 mL/min (>60) > 60 mL/min (>60) Glucose Level 92 MG/DL (74-106) 113 MG/DL (74-106) H Calcium Level 7.7 MG/DL (8.5-10.1) L 7.8 MG/DL (8.5-10.1) L Phosphorus Level 2.1 MG/DL (2.5-4.9) L Magnesium Level 2.0 MG/DL (1.8-2.4) Iron Level 27 ug/dL (50-175) L Total Iron Binding Capacity 208 ug/dL (250-450) L Percent Iron Saturation 13 % (15-50) L Unsaturated Iron Binding 181 ug/dL (112-346) Total Bilirubin 0.8 MG/DL (0.2-1.0) Aspartate Amino Transf (AST/SGOT) 13 U/L (15-37) L Alanine Aminotransferase (ALT/SGPT) 11 U/L (12-78) L Alkaline Phosphatase 39 U/L (46-116) L C-Reactive Protein, Quantitative 14.4 mg/dL (0.00-0.90) H Pro-B-Type Natriuretic Peptide Pending Total Protein 5.5 G/DL (6.4-8.2) L Albumin 2.2 G/DL (3.4-5.0) L Globulin 3.3 g/dL Albumin/Globulin Ratio 0.7 (1.0-2.7) L Vitamin B12 Level 608 PG/ML (193-986) Folate 16.1 NG/ML (8.6-58.9) Anisocytosis 1+ Objective HEAD AND NECK: Positive JVD. LUNGS: Decreased breath sounds. CARDIOVASCULAR: Regular S1 and S2 with no gallop. ABDOMEN: Obese. EXTREMITIES: Bilateral 2+ pitting edema. Cameron Davies MD May 26, 2020 12:39
--- NOTE | 2020-05-26 15:11 | Pulmonology Progress Note ---
Subjective ROS Limited/Unobtainable: Yes Interval Events: per RN she keeps taking off her NRB, and SaO2 drops to 79-80% Constitutional: Denies: fever HEENT: Repors: no symptoms Respiratory: Reports: no symptoms Cardiovascular: Reports: no symptoms Gastrointestinal/Abdominal: Reports: no symptoms Genitourinary: Reports: no symptoms Allergies: Coded Allergies: LITHIUM (Verified Allergy, Unknown, 02/07/19) Objective Last 24 Hour Vital Signs Date Time Temp Pulse Resp B/P (MAP) Pulse Ox O2 Delivery O2 Flow Rate FiO2 05/26/20 12:23 64 05/26/20 12:00 Venturi Mask 15.0 05/26/20 12:00 97.9 60 22 116/47 (70) 98 05/26/20 12:00 14.0 05/26/20 08:00 98.2 61 23 135/45 (75) 100 05/26/20 08:00 Venturi Mask 15.0 05/26/20 07:43 58 05/26/20 05:11 14.0 05/26/20 04:00 64 05/26/20 04:00 97.7 60 19 105/37 (59) 100 05/26/20 04:00 Venturi Mask 15.0 05/26/20 00:00 97.2 74 20 139/94 (109) 100 05/26/20 00:00 63 05/26/20 00:00 Venturi Mask 15.0 05/25/20 20:38 96 Venturi Mask 14.0 55 05/25/20 20:00 97.5 65 19 106/40 (62) 100 05/25/20 20:00 Venturi Mask 15.0 05/25/20 20:00 62 05/25/20 16:00 96.4 61 20 114/31 (58) 99 05/25/20 16:00 65 05/25/20 16:00 Venturi Mask 15.0 Intake and Output 05/25/20 05/26/20 19:00 07:00 Intake Total 50 ml 750 ml Output Total 600 ml 350 ml Balance -550 ml 400 ml Intake Oral 250 ml IV Total 50 ml 500 ml Output Urine Total 600 ml 350 ml Objective 05/26/2020 in SDU; keeps taking off her NRB and desats to 79-80% 05/24/2020 in ICUD; restless, saturating ok with NC 05/19/2020 Pt in ICU; full code General Appearance: no acute distress HEENT: normocephalic Respiratory: no respiratory distress, decreased breath sounds Cardiovascular: normal rate Abdomen: soft, non tender, other - obese, NG tube Extremities: other - b/l 2+ pitting edema Neurologic: disoriented Laboratory Tests 05/26/20 03:50: White Blood Count 5.8, Red Blood Count 2.09L, Hemoglobin 6.7*L, Hematocrit 19.7L , Mean Corpuscular Volume 94, Mean Corpuscular Hemoglobin 31.9H, Mean Corpuscular Hemoglobin Concent 34.0, Red Cell Distribution Width 13.8, Platelet Count 152, Mean Platelet Volume 7.3, Neutrophils (%) (Auto) , Lymphocytes (%) (Auto) , Monocytes (%) (Auto) , Eosinophils (%) (Auto) , Basophils (%) (Auto) , Differential Total Cells Counted 100, Neutrophils % (Manual) 77H, Lymphocytes % (Manual) 19L, Monocytes % (Manual) 4, Eosinophils % (Manual) 0, Basophils % (Manual) 0, Band Neutrophils 0, Platelet Estimate Adequate, Platelet Morphology Normal, Hypochromasia 1+, Sodium Level 146H, Potassium Level 3.2L, Chloride Level 110H, Carbon Dioxide Level 32, Anion Gap 4L, Blood Urea Nitrogen 20H, Creatinine 0.7, Estimat Glomerular Filtration Rate > 60, Glucose Level 92, Ca lcium Level 7.7L, Phosphorus Level 2.1L, Magnesium Level 2.0, Iron Level 27L, Total Iron Binding Capacity 208L, Percent Iron Saturation 13L, Unsaturated Iron Binding 181, Total Bilirubin 0.8, Aspartate Amino Transf (AST/SGOT) 13L, Alanine Aminotransferase (ALT/SGPT) 11L, Alkaline Phosphatase 39L, C-Reactive Protein, Quantitative 14.4H, Pro-B-Type Natriuretic Peptide [Pending], Total Protein 5.5L , Albumin 2.2L, Globulin 3.3, Albumin/Globulin Ratio 0.7L, Vitamin B12 Level 608, Folate 16.1 05/26/20 09:05: White Blood Count 5.9, Red Blood Count 2.31L, Hemoglobin 7.3L, Hematocrit 21.4L, Mean Corpuscular Volume 93, Mean Corpuscular Hemoglobin 31.6H, Mean Corpuscular Hemoglobin Concent 34.0, Red Cell Distribution Width 15.5H, Platelet Count 166, Mean Platelet Volume 7.6, Neutrophils (%) (Auto) , Lymphocytes (%) (Auto) , Monocytes (%) (Auto) , Eosinophils (%) (Auto) , Basophils (%) (Auto) , Differential Total Cells Counted 100, Neutrophils % (Manual) 80H, Lymphocytes % (Manual) 14L, Monocytes % (Manual) 6, Eosinophils % (Manual) 0, Basophils % (Manual) 0, Band Neutrophils 0, Platelet Estimate Adequate, Platelet Morphology Normal, Hypochromasia 1+, Sodium Level 145, Potassium Level 3.2L, Chloride Level 110H, Carbon Dioxide Level 35H, Anion Gap 0L, Blood Urea Nitrogen 19H, Creatinine 0.8, Estimat Glomerular Filtration Rate > 60, Glucose Level 113H, Calcium Level 7.8L, Anisocytosis 1+ Current Medications Medications (Trade) Dose Ordered Sig/Angie Route PRN Reason Start Time Stop Time Status Last Admin Dose Admin Acetaminophen (Tylenol) 650 mg Q6H PRN NG Fever >100.5 05/14/20 21:00 06/13/20 20:59 05/14/20 21:10 Acetaminophen (Tylenol) 650 mg Q6H PRN NG Mild Pain (Pain Scale 1-3) 05/14/20 21:00 06/13/20 20:59 05/17/20 11:06 Barium Sulfate (Varibar Honey) 250 ml NOW PRN MC RAD 05/24/20 19:45 05/27/20 19:34 Barium Sulfate (Varibar [place]) 240 ml NOW PRN MC RAD 05/24/20 19:45 05/27/20 19:34 Barium Sulfate (Varibar Pudding) 230 ml NOW PRN MC RAD 05/24/20 19:45 05/27/20 19:34 Barium Sulfate (Varibar Thin Liquid powder) 148 gm NOW PRN MC RAD 05/24/20 19:45 05/27/20 19:34 Clonidine HCl (Catapres Tab) 0.1 mg Q4H PRN ORAL sbp>170 05/11/20 17:15 08/09/20 17:14 Dextrose/Sodium Chloride 1,000 ml @ 50 mls/hr Q20H IV 05/22/20 12:00 06/21/20 11:59 05/25/20 20:30 Docusate Sodium (Colace) 100 mg TWICE A DAY ORAL 05/25/20 18:00 06/24/20 17:59 05/26/20 08:46 Haloperidol Lactate (Haldol) 5 mg Q6H PRN IM Agitation 05/13/20 20:45 06/27/20 20:44 05/24/20 20:19 Heparin Sodium (Porcine) (Heparin 5000 units/ml) 5,000 units EVERY 12 HOURS SUBQ 05/25/20 21:00 07/09/20 20:59 05/25/20 20:32 Levothyroxine Sodium (Synthroid) 50 mcg DAILY@0630 ORAL 05/14/20 06:30 06/13/20 06:29 05/26/20 05:34 Pantoprazole (Protonix) 40 mg Q12HR ORAL 05/26/20 21:00 06/25/20 20:59 Polyethylene Glycol (Miralax) 17 gm BEDTIME ORAL 05/25/20 21:00 06/24/20 20:59 05/25/20 20:31 Quetiapine Fumarate (SEROqueL) 50 mg Q12HR ORAL 05/24/20 21:00 07/08/20 20:59 05/26/20 08:46 Assessment/Plan Assessment/Plan 1. Bilateral COVID-19 multilobar pneumonia. - s/p ETT; now extubated - Afebrile - s/p Azithromycin, Ceftriaxone, dexamethasone - s/p remdesivir 2. Hx of COPD. 3. Schizophrenia/psychosis - On dopamine, haloperidol 4. Hypoxia. - on NRB, desats to 79-80% when she contantly takes her NRB off, s/p self extubation - Switch to 5 lpm NC and keep SaO2 >92% 5. Anemia - hgb 9.6 -> 7.9 -> 8.4 -> 7.8 -> 7.3 6. Azotemia/renal failure - UA: Positive leuk esterase, protein, RBC, WBC (05/11/2020) - BUN 32 -> 39 -> 34 -> 25 DVT ppx The care for this patient was discussed with my supervising physician Time spent for this case was 31 minutes The patient was seen and examined at bedside and all new and available data was reviewed in the patients chart. I agree with the above findings, impression, and plan. (Patient was seen earlier today. Signature timestamp does not reflect patient encounter time) Trae Arriaga MD May 26, 2020 15:11 Sincere Myers MD May 26, 2020 16:54
[2020-05-26 16:00] VITALS: BP 106/41
--- NOTE | 2020-05-26 16:05 | Surgery Progress Note ---
Surgery Progress Note Subjective Additional Comments central line dislodged with bleeding pressure held and hemostasis h/h noted stable no active bleeding now Objective Last 24 Hour Vital Signs Date Time Temp Pulse Resp B/P (MAP) Pulse Ox O2 Delivery O2 Flow Rate FiO2 05/26/20 12:23 64 05/26/20 12:00 Venturi Mask 15.0 05/26/20 12:00 97.9 60 22 116/47 (70) 98 05/26/20 12:00 14.0 05/26/20 08:00 98.2 61 23 135/45 (75) 100 05/26/20 08:00 Venturi Mask 15.0 05/26/20 07:43 58 05/26/20 05:11 14.0 05/26/20 04:00 64 05/26/20 04:00 97.7 60 19 105/37 (59) 100 05/26/20 04:00 Venturi Mask 15.0 05/26/20 00:00 97.2 74 20 139/94 (109) 100 05/26/20 00:00 63 05/26/20 00:00 Venturi Mask 15.0 05/25/20 20:38 96 Venturi Mask 14.0 55 05/25/20 20:00 97.5 65 19 106/40 (62) 100 05/25/20 20:00 Venturi Mask 15.0 05/25/20 20:00 62 I&O Intake and Output 05/25/20 05/26/20 19:00 07:00 Intake Total 50 ml 750 ml Output Total 600 ml 350 ml Balance -550 ml 400 ml Intake Oral 250 ml IV Total 50 ml 500 ml Output Urine Total 600 ml 350 ml Dressing: saturated Cardiovascular: RSR Respiratory: decreased breath sounds Abdomen: non-tender, present bowel sounds Extremities: no tenderness, no cyanosis Laboratory Tests Test 05/26/20 03:50 05/26/20 09:05 White Blood Count 5.8 K/UL (4.8-10.8) 5.9 K/UL (4.8-10.8) Red Blood Count 2.09 M/UL (4.20-5.40) L 2.31 M/UL (4.20-5.40) L Hemoglobin 6.7 G/DL (12.0-16.0) *L 7.3 G/DL (12.0-16.0) L Hematocrit 19.7 % (37.0-47.0) L 21.4 % (37.0-47.0) L Mean Corpuscular Volume 94 FL (80-99) 93 FL (80-99) Mean Corpuscular Hemoglobin 31.9 PG (27.0-31.0) H 31.6 PG (27.0-31.0) H Mean Corpuscular Hemoglobin Concent 34.0 G/DL (32.0-36.0) 34.0 G/DL (32.0-36.0) Red Cell Distribution Width 13.8 % (11.6-14.8) 15.5 % (11.6-14.8) H Platelet Count 152 K/UL (150-450) 166 K/UL (150-450) Mean Platelet Volume 7.3 FL (6.5-10.1) 7.6 FL (6.5-10.1) Neutrophils (%) (Auto) % (45.0-75.0) % (45.0-75.0) Lymphocytes (%) (Auto) % (20.0-45.0) % (20.0-45.0) Monocytes (%) (Auto) % (1.0-10.0) % (1.0-10.0) Eosinophils (%) (Auto) % (0.0-3.0) % (0.0-3.0) Basophils (%) (Auto) % (0.0-2.0) % (0.0-2.0) Differential Total Cells Counted 100 100 Neutrophils % (Manual) 77 % (45-75) H 80 % (45-75) H Lymphocytes % (Manual) 19 % (20-45) L 14 % (20-45) L Monocytes % (Manual) 4 % (1-10) 6 % (1-10) Eosinophils % (Manual) 0 % (0-3) 0 % (0-3) Basophils % (Manual) 0 % (0-2) 0 % (0-2) Band Neutrophils 0 % (0-8) 0 % (0-8) Platelet Estimate Adequate Adequate Platelet Morphology Normal Normal Hypochromasia 1+ 1+ Sodium Level 146 MMOL/L (136-145) H 145 MMOL/L (136-145) Potassium Level 3.2 MMOL/L (3.5-5.1) L 3.2 MMOL/L (3.5-5.1) L Chloride Level 110 MMOL/L (98-107) H 110 MMOL/L (98-107) H Carbon Dioxide Level 32 MMOL/L (21-32) 35 MMOL/L (21-32) H Anion Gap 4 mmol/L (5-15) L 0 mmol/L (5-15) L Blood Urea Nitrogen 20 mg/dL (7-18) H 19 mg/dL (7-18) H Creatinine 0.7 MG/DL (0.55-1.30) 0.8 MG/DL (0.55-1.30) Estimat Glomerular Filtration Rate > 60 mL/min (>60) > 60 mL/min (>60) Glucose Level 92 MG/DL (74-106) 113 MG/DL (74-106) H Calcium Level 7.7 MG/DL (8.5-10.1) L 7.8 MG/DL (8.5-10.1) L Phosphorus Level 2.1 MG/DL (2.5-4.9) L Magnesium Level 2.0 MG/DL (1.8-2.4) Iron Level 27 ug/dL (50-175) L Total Iron Binding Capacity 208 ug/dL (250-450) L Percent Iron Saturation 13 % (15-50) L Unsaturated Iron Binding 181 ug/dL (112-346) Total Bilirubin 0.8 MG/DL (0.2-1.0) Aspartate Amino Transf (AST/SGOT) 13 U/L (15-37) L Alanine Aminotransferase (ALT/SGPT) 11 U/L (12-78) L Alkaline Phosphatase 39 U/L (46-116) L C-Reactive Protein, Quantitative 14.4 mg/dL (0.00-0.90) H Pro-B-Type Natriuretic Peptide Pending Total Protein 5.5 G/DL (6.4-8.2) L Albumin 2.2 G/DL (3.4-5.0) L Globulin 3.3 g/dL Albumin/Globulin Ratio 0.7 (1.0-2.7) L Vitamin B12 Level 608 PG/ML (193-986) Folate 16.1 NG/ML (8.6-58.9) Anisocytosis 1+ Plan Problems: (1) Anemia (2) Hypercapnic respiratory failure Assessment & Plan: respiratory insufficiency requiring prolonged ventilatory support unable to wean vent safely after multiple attempts discussed with pcp. discussed with pulm discussed with patient guardian. patient unable to consent. no nok or poa. given critical care and condition not recommended to await court decision which during pandemic can take long time. medically necessary to proceed with trach in patients best interest. 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
--- NOTE | 2020-05-26 16:57 | Nephrology Progress Note ---
Assessment/Plan Problem List: (1) Renal failure (ARF), acute on chronic (2) Hypercapnic respiratory failure (3) CHF exacerbation Assessment Azotemia/renal failure Acute respiratory failure most likely secondary to CHF, on mechanical ventilation History of COPD Hypertension Hyperlipemia Schizophrenia/psychosis Plan May 26: On Venturi mask. Labs reviewed. Abnormal electrolytes addressed. Continue per consultants and pulmonary support. May 25: On Venturi mask. Lethargic. No labs drawn today. Will monitor renal parameters. Per orders. May 24: Remains extubated. Will start on diet with high alert for possible aspiration. Continue to monitor renal parameters. May 23: Continues to be extubated. On nonrebreathing mask. Labs reviewed. Renal parameters stable. Discussed with RN. Continue per current management. May 22: Now extubated on nonrebreathing mask. Labs reviewed. Renal parameters stable. Abnormal electrolytes addressed. Discussed with RN. May 21: Remains intubated. Labs reviewed. Abnormal electrolytes addressed. Discussed with RN. May 20: Remains intubated. Abnormal electrolyte noted on today's lab results and addressed. Continue per consultants. May 19: Patient remains intubated. Labs reviewed. Abnormal electrolytes addressed. Continue per current management. May 18: Patient seen in ICU. Remains intubated. Weaning is being tried. Discussed with RN. Labs reviewed. Abnormal electrolyte addressed. Continue per consultants. May 17: Labs reviewed. Remains intubated. Stable from renal standpoint of view. Continue weaning. Discussed with RN. May 16: Labs reviewed. Remains intubated. Remains full code. Stable from renal standpoint of view. Abnormal electrolytes addressed. May 15: Labs reviewed. Renal parameters stable. Discussed with RN. Patient remains intubated on ventilator and full code. Continue per consultants. May 14: Labs reviewed. Discussed with RN. Abnormal electrolyte addressed. Continue per current management. Patient seen in ICU. Discussed with RN. Today's labs pending. Patient remains on 6 mics of dopamine. Pulmonary support Monitor intake and output Monitor electrolytes Continue per consultants Per orders Subjective ROS Limited/Unobtainable: Yes Objective Objective Last 24 Hour Vital Signs Date Time Temp Pulse Resp B/P (MAP) Pulse Ox O2 Delivery O2 Flow Rate FiO2 05/26/20 12:23 64 05/26/20 12:00 Venturi Mask 15.0 05/26/20 12:00 97.9 60 22 116/47 (70) 98 05/26/20 12:00 14.0 05/26/20 08:00 98.2 61 23 135/45 (75) 100 05/26/20 08:00 Venturi Mask 15.0 05/26/20 07:43 58 05/26/20 05:11 14.0 05/26/20 04:00 64 05/26/20 04:00 97.7 60 19 105/37 (59) 100 05/26/20 04:00 Venturi Mask 15.0 05/26/20 00:00 97.2 74 20 139/94 (109) 100 05/26/20 00:00 63 05/26/20 00:00 Venturi Mask 15.0 05/25/20 20:38 96 Venturi Mask 14.0 55 05/25/20 20:00 97.5 65 19 106/40 (62) 100 05/25/20 20:00 Venturi Mask 15.0 05/25/20 20:00 62 Intake and Output 05/25/20 05/26/20 19:00 07:00 Intake Total 50 ml 750 ml Output Total 600 ml 350 ml Balance -550 ml 400 ml Intake Oral 250 ml IV Total 50 ml 500 ml Output Urine Total 600 ml 350 ml Laboratory Tests 05/26/20 03:50: White Blood Count 5.8, Red Blood Count 2.09L, Hemoglobin 6.7*L, Hematocrit 19.7L , Mean Corpuscular Volume 94, Mean Corpuscular Hemoglobin 31.9H, Mean Corpuscular Hemoglobin Concent 34.0, Red Cell Distribution Width 13.8, Platelet Count 152, Mean Platelet Volume 7.3, Neutrophils (%) (Auto) , Lymphocytes (%) (Auto) , Monocytes (%) (Auto) , Eosinophils (%) (Auto) , Basophils (%) (Auto) , Differential Total Cells Counted 100, Neutrophils % (Manual) 77H, Lymphocytes % (Manual) 19L, Monocytes % (Manual) 4, Eosinophils % (Manual) 0, Basophils % (Manual) 0, Band Neutrophils 0, Platelet Estimate Adequate, Platelet Morphology Normal, Hypochromasia 1+, Sodium Level 146H, Potassium Level 3.2L, Chloride Level 110H, Carbon Dioxide Level 32, Anion Gap 4L, Blood Urea Nitrogen 20H, Creatinine 0.7, Estimat Glomerular Filtration Rate > 60, Glucose Level 92, Calcium Level 7.7L, Phosphorus Level 2.1L, Magnesium Level 2.0, Iron Level 27L, Total Iron Binding Capacity 208L, Percent Iron Saturation 13L, Unsaturated Iron Binding 181, Total Bilirubin 0.8, Aspartate Amino Transf (AST/SGOT) 13L, Alanine Aminotransferase (ALT/SGPT) 11L, Alkaline Phosphatase 39L, C-Reactive Protein, Quantitative 14.4H, Pro-B-Type Natriuretic Peptide [Pending], Total Protein 5.5L , Albumin 2.2L, Globulin 3.3, Albumin/Globulin Ratio 0.7L, Vitamin B12 Level 608, Folate 16.1 05/26/20 09:05: White Blood Count 5.9, Red Blood Count 2.31L, Hemoglobin 7.3L, Hematocrit 21.4L, Mean Corpuscular Volume 93, Mean Corpuscular Hemoglobin 31.6H, Mean Corpuscular Hemoglobin Concent 34.0, Red Cell Distribution Width 15.5H, Platelet Count 166, Mean Platelet Volume 7.6, Neutrophils (%) (Auto) , Lymphocytes (%) (Auto) , Monocytes (%) (Auto) , Eosinophils (%) (Auto) , Basophils (%) (Auto) , Differential Total Cells Counted 100, Neutrophils % (Manual) 80H, Lymphocytes % (Manual) 14L, Monocytes % (Manual) 6, Eosinophils % (Manual) 0, Basophils % ( Manual) 0, Band Neutrophils 0, Platelet Estimate Adequate, Platelet Morphology Normal, Hypochromasia 1+, Sodium Level 145, Potassium Level 3.2L, Chloride Level 110H, Carbon Dioxide Level 35H, Anion Gap 0L, Blood Urea Nitrogen 19H, Creatinine 0.8, Estimat Glomerular Filtration Rate > 60, Glucose Level 113H, Calcium Level 7.8L, Anisocytosis 1+ Height (Feet): 5 Height (Inches): 3.00 Weight (Pounds): 183 General Appearance: mild distress EENT: other - On Venturi mask Cardiovascular: normal rate Respiratory/Chest: decreased breath sounds Abdomen: distended Bryan Ochoa MD May 26, 2020 16:57
[2020-05-26] MEDS: D5 1/2NS 1,000 ML IV SCH (17:21)
[2020-05-26] MEDS ORDERED: NS 275ml ONE (18:52)
[2020-05-26] MEDS ORDERED: Tubing IV Secondary IV ONE (18:52)
--- NOTE | 2020-05-26 19:56 | Psychiatric Progress Note ---
Psychiatry Progress Note Psychiatry Progress Note Subjective the pt has waxing and waning o consciousness on restraints episodes agitation Medications Current Medications Medications (Trade) Dose Ordered Sig/Angie Route PRN Reason Start Time Stop Time Status Last Admin Dose Admin Acetaminophen (Tylenol) 650 mg Q6H PRN NG Fever >100.5 05/14/20 21:00 06/13/20 20:59 05/14/20 21:10 Acetaminophen (Tylenol) 650 mg Q6H PRN NG Mild Pain (Pain Scale 1-3) 05/14/20 21:00 06/13/20 20:59 05/17/20 11:06 Barium Sulfate (Varibar Honey) 250 ml NOW PRN RAD 05/24/20 19:45 05/27/20 19:34 Barium Sulfate (Varibar [place]) 240 ml NOW PRN RAD 05/24/20 19:45 05/27/20 19:34 Barium Sulfate (Varibar Pudding) 230 ml NOW PRN RAD 05/24/20 19:45 05/27/20 19:34 Barium Sulfate (Varibar Thin Liquid powder) 148 gm NOW PRN RAD 05/24/20 19:45 05/27/20 19:34 Clonidine HCl (Catapres Tab) 0.1 mg Q4H PRN ORAL sbp>170 05/11/20 17:15 08/09/20 17:14 Dextrose/Sodium Chloride 1,000 ml @ 50 mls/hr Q20H IV 05/22/20 12:00 06/21/20 11:59 05/26/20 17:21 Docusate Sodium (Colace) 100 mg TWICE A DAY ORAL 05/25/20 18:00 06/24/20 17:59 05/26/20 17:21 Haloperidol Lactate (Haldol) 5 mg Q6H PRN IM Agitation 05/13/20 20:45 06/27/20 20:44 05/24/20 20:19 Heparin Sodium (Porcine) (Heparin 5000 units/ml) 5,000 units EVERY 12 HOURS SUBQ 05/25/20 21:00 07/09/20 20:59 05/25/20 20:32 Levothyroxine Sodium (Synthroid) 50 mcg DAILY@0630 ORAL 05/14/20 06:30 06/13/20 06:29 05/26/20 05:34 Pantoprazole (Protonix) 40 mg Q12HR ORAL 05/26/20 21:00 06/25/20 20:59 Polyethylene Glycol (Miralax) 17 gm BEDTIME ORAL 05/25/20 21:00 06/24/20 20:59 05/25/20 20:31 Quetiapine Fumarate (SEROqueL) 50 mg Q12HR ORAL 05/24/20 21:00 07/08/20 20:59 05/26/20 08:46 Neurological/Psychiatric: Reports: anxiety, depressed, emotional problems Allergies: Coded Allergies: LITHIUM (Verified Allergy, Unknown, 02/07/19) Objective Data Height (Feet): 5 Height (Inches): 3.00 Weight (Pounds): 183 General Appearance: mild distress Additional Comments: waxing and waning consciousness. Disoriented. Mood is neutral to agitation. Affect is flat. Thought process, there is paucity of thought process. Thought content, no suicidal or homicidal ideation. Cognition is impaired. Insight and judgment is impaired. Assessment/Plan Darby I: Darby I Acute toxic encephalopathy. Schizophrenia. Darby II Deferred. Darby III COVID-19. Darby IV Low. Darby V 20 PLAN: 1. Discontinue the IV Haldol. 2. Start the patient on Haldol IM. 3. The patient benefits from bilateral soft restraints. 4. Provide the patient with reality orientation. 5. Discussed with the nurse. Status: progressing, unchanged Status Narrative Darby I Acute toxic encephalopathy. Schizophrenia. Darby II Deferred. Darby III COVID-19. Darby IV Low. Darby V 20 PLAN: 1. Discontinue the IV Haldol. 2. Start the patient on Haldol IM. 3. The patient benefits from bilateral soft restraints. 4. Provide the patient with reality orientation. 5. Discussed with the nurse. Assessment/Plan: Darby I Acute toxic encephalopathy. Schizophrenia. Darby II Deferred. Darby III COVID-19. Darby IV Low. Darby V 20 PLAN: 1. Discontinue the IV Haldol. 2. Start the patient on Haldol IM. 3. The patient benefits from bilateral soft restraints. 4. Provide the patient with reality orientation. 5. Discussed with the nurse. Kiana Hernandez MD May 26, 2020 19:56
[2020-05-26 20:00] VITALS: BP 92/61
[2020-05-26] MEDS: Miralax 17gm pkt ORAL SCH (20:57)
--- NOTE | 2020-05-26 21:01 | General Progress Note ---
Subjective ROS Limited/Unobtainable: Yes Allergies: Coded Allergies: LITHIUM (Verified Allergy, Unknown, 02/07/19) Objective Last 24 Hour Vital Signs Date Time Temp Pulse Resp B/P (MAP) Pulse Ox O2 Delivery O2 Flow Rate FiO2 05/26/20 16:00 98.2 69 22 106/41 (62) 97 05/26/20 16:00 Venturi Mask 15.0 05/26/20 16:00 14.0 05/26/20 15:10 68 05/26/20 12:23 64 05/26/20 12:00 Venturi Mask 15.0 05/26/20 12:00 97.9 60 22 116/47 (70) 98 05/26/20 12:00 14.0 05/26/20 08:00 98.2 61 23 135/45 (75) 100 05/26/20 08:00 Venturi Mask 15.0 05/26/20 07:43 58 05/26/20 07:00 97 Venturi Mask 14.0 55 05/26/20 05:11 14.0 05/26/20 04:00 64 05/26/20 04:00 97.7 60 19 105/37 (59) 100 05/26/20 04:00 Venturi Mask 15.0 05/26/20 00:00 97.2 74 20 139/94 (109) 100 05/26/20 00:00 63 05/26/20 00:00 Venturi Mask 15.0 Intake and Output 05/25/20 05/26/20 19:00 07:00 Intake Total 50 ml 750 ml Output Total 600 ml 350 ml Balance -550 ml 400 ml Intake Oral 250 ml IV Total 50 ml 500 ml Output Urine Total 600 ml 350 ml Laboratory Tests 05/26/20 03:50: White Blood Count 5.8, Red Blood Count 2.09L, Hemoglobin 6.7*L, Hematocrit 19.7L , Mean Corpuscular Volume 94, Mean Corpuscular Hemoglobin 31.9H, Mean Corpuscular Hemoglobin Concent 34.0, Red Cell Distribution Width 13.8, Platelet Count 152, Mean Platelet Volume 7.3, Neutrophils (%) (Auto) , Lymphocytes (%) (Auto) , Monocytes (%) (Auto) , Eosinophils (%) (Auto) , Basophils (%) (Auto) , Differential Total Cells Counted 100, Neutrophils % (Manual) 77H, Lymphocytes % (Manual) 19L, Monocytes % (Manual) 4, Eosinophils % (Manual) 0, Basophils % (Manual) 0, Band Neutrophils 0, Platelet Estimate Adequate, Platelet Morphology Normal, Hypochromasia 1+, Sodium Level 146H, Potassium Level 3.2L, Chloride Level 110H, Carbon Dioxide Level 32, Anion Gap 4L, Blood Urea Nitrogen 20H, Creatinine 0.7, Estimat Glomerular Filtration Rate > 60, Glucose Level 92, Calcium Level 7.7L, Phosphorus Level 2.1L, Magnesium Level 2.0, Iron Level 27L, Total Iron Binding Capacity 208L, Percent Iron Saturation 13L, Unsaturated Iron Binding 181, Total Bilirubin 0.8, Aspartate Amino Transf (AST/SGOT) 13L, Alanine Aminotransferase (ALT/SGPT) 11L, Alkaline Phosphatase 39L, C-Reactive Protein, Quantitative 14.4H, Pro-B-Type Natriuretic Peptide [Pending], Total Protein 5.5L , Albumin 2.2L, Globulin 3.3, Albumin/Globulin Ratio 0.7L, Vitamin B12 Level 608, Folate 16.1 05/26/20 09:05: White Blood Count 5.9, Red Blood Count 2.31L, Hemoglobin 7.3L, Hematocrit 21.4L, Mean Corpuscular Volume 93, Mean Corpuscular Hemoglobin 31.6H, Mean Corpuscular Hemoglobin Concent 34.0, Red Cell Distribution Width 15.5H, Platelet Count 166, Mean Platelet Volume 7.6, Neutrophils (%) (Auto) , Lymphocytes (%) (Auto) , Monocytes (%) (Auto) , Eosinophils (%) (Auto) , Basophils (%) (Auto) , Differential Total Cells Counted 100, Neutrophils % (Manual) 80H, Lymphocytes % (Manual) 14L, Monocytes % (Manual) 6, Eosinophils % (Manual) 0, Basophils % (Manual) 0, Band Neutrophils 0, Platelet Estimate Adequate, Platelet Morphology Normal, Hypochromasia 1+, Sodium Level 145, Potassium Level 3.2L, Chloride Level 110H, Carbon Dioxide Level 35H, Anion Gap 0L, Blood Urea Nitrogen 19H, Creatinine 0.8, Estimat Glomerular Filtration Rate > 60, Glucose Level 113H, Calcium Level 7.8L, Anisocytosis 1+ Height (Feet): 5 Height (Inches): 3.00 Weight (Pounds): 183 Assessment/Plan Problem List: (1) Anemia ICD Codes: D64.9 - Anemia, unspecified SNOMED: 911182430 (2) Hypercapnic respiratory failure ICD Codes: J96.92 - Respiratory failure, unspecified with hypercapnia SNOMED: 775846837 (3) COVID-19 ICD Codes: U07.1 - COVID-19 SNOMED: 231852367 (4) COPD (chronic obstructive pulmonary disease) ICD Codes: J44.9 - Chronic obstructive pulmonary disease, unspecified SNOMED: 05309357 (5) Psychosis ICD Codes: F29 - Unspecified psychosis not due to a substance or known physiological condition SNOMED: 25225609 (6) Hypoxia ICD Codes: R09.02 - Hypoxemia SNOMED: 637251954 (7) Renal failure (ARF), acute on chronic ICD Codes: N17.9 - Acute kidney failure, unspecified; N18.9 - Chronic kidney disease, unspecified SNOMED: 748273235 (8) CHF exacerbation ICD Codes: I50.9 - Heart failure, unspecified SNOMED: 713504879, [id number] Status: progressing, unchanged Assessment/Plan: afebrile no wheezing on high oxygen covid positive pna sepsis copd exac chf exac improving Dani Perera MD May 26, 2020 21:01
[2020-05-27] VITALS: BP 108/45
[2020-05-27 04:00] VITALS: BP 117/50
[2020-05-27 05:03] LABS: HEMATOCRIT 20.4 % (37.0-47.0); MEAN CORPUSCULAR VOLUME 98 FL (80-99); PLATELET COUNT 137 K/UL (150-450); RED BLOOD COUNT 2.09 M/UL (4.20-5.40); RED CELL DISTRIBUTION WIDTH 14.3 % (11.6-14.8); WHITE BLOOD COUNT 4.5 K/UL (4.8-10.8)
[2020-05-27 05:27] LABS: HEMOGLOBIN 6.7 G/DL (12.0-16.0)
[2020-05-27 06:03] LABS: ALANINE AMINOTRANSFERASE 10 U/L (12-78); ALBUMIN 2.3 G/DL (3.4-5.0); ALBUMIN/GLOBULIN RATIO 0.7 (1.0-2.7); ALKALINE PHOSPHATASE 44 U/L (46-116); ANION GAP 5 mmol/L (5-15); ASPARTATE AMINO TRANSFERASE 14 U/L (15-37); BILIRUBIN,TOTAL 0.9 MG/DL (0.2-1.0); BLOOD UREA NITROGEN 17 mg/dL (7-18); CALCIUM 7.5 MG/DL (8.5-10.1); CARBON DIOXIDE 30 MMOL/L (21-32); CHLORIDE 108 MMOL/L (98-107); CREATININE 0.8 MG/DL (0.55-1.30); PHOSPHORUS 2.2 MG/DL (2.5-4.9); POTASSIUM 3.5 MMOL/L (3.5-5.1); SODIUM 143 MMOL/L (136-145)
[2020-05-27 08:00] VITALS: BP 119/43
[2020-05-27] MEDS: Docusate 100mg cap ORAL SCH ×2 (08:13→18:13)
[2020-05-27] MEDS: Heparin 5000 units/ml inj SUBQ SCH ×2 (08:14→21:00)
--- NOTE | 2020-05-27 09:11 | Infectious Diseases Prog Note ---
Assessment/Plan Assessment/Plan IMPRESSION: COVID-19 disease, Acute respiratory failure, COPD, Diastolic CHF, Mitral valve regurgitation, Anemia, Parkinson disease, schizoaffective disorder, Dementia, Obstructive sleep apnea, Hypothyroidism. 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 RECOMMENDATION: Finished dexamethasone & Remdesivir course Observe off of antibiotic Subjective ROS Limited/Unobtainable: Yes Constitutional: Denies: fever Neurologic: Reports: confusion, other - on restraint Allergies: Coded Allergies: LITHIUM (Verified Allergy, Unknown, 02/07/19) Objective Last 24 Hour Vital Signs Date Time Temp Pulse Resp B/P (MAP) Pulse Ox O2 Delivery O2 Flow Rate FiO2 05/27/20 08:00 14.0 55 05/27/20 04:00 14.0 55 05/27/20 04:00 Venturi Mask 15.0 05/27/20 04:00 98.2 77 20 117/50 (72) 100 05/27/20 03:37 62 05/27/20 00:00 Venturi Mask 15.0 05/27/20 00:00 98.0 67 20 108/45 (66) 100 05/27/20 00:00 14.0 55 05/27/20 00:00 67 05/26/20 20:00 Venturi Mask 15.0 05/26/20 20:00 66 05/26/20 20:00 14.0 55 05/26/20 20:00 97.9 62 24 92/61 (71) 100 05/26/20 19:20 97 Venturi Mask 14.0 55 05/26/20 16:00 98.2 69 22 106/41 (62) 97 05/26/20 16:00 Venturi Mask 15.0 05/26/20 16:00 14.0 05/26/20 15:10 68 05/26/20 12:23 64 05/26/20 12:00 Venturi Mask 15.0 05/26/20 12:00 97.9 60 22 116/47 (70) 98 05/26/20 12:00 14.0 Height (Feet): 5 Height (Inches): 3.00 Weight (Pounds): 183 General Appearance: no acute distress HEENT: mucous membranes moist Respiratory/Chest: other - oxygen by venturi mask Cardiovascular: normal rate Abdomen: soft, non tender Extremities: no edema Neurologic/Psychiatric: alert, responsive, disoriented Laboratory Tests Test 05/27/20 03:10 White Blood Count 4.5 K/UL (4.8-10.8) L Red Blood Count 2.09 M/UL (4.20-5.40) L Hemoglobin 6.7 G/DL (12.0-16.0) *L Hematocrit 20.4 % (37.0-47.0) L Mean Corpuscular Volume 98 FL (80-99) Mean Corpuscular Hemoglobin 31.9 PG (27.0-31.0) H Mean Corpuscular Hemoglobin Concent 32.7 G/DL (32.0-36.0) Red Cell Distribution Width 14.3 % (11.6-14.8) Platelet Count 137 K/UL (150-450) L Mean Platelet Volume 7.1 FL (6.5-10.1) Neutrophils (%) (Auto) % (45.0-75.0) Lymphocytes (%) (Auto) % (20.0-45.0) Monocytes (%) (Auto) % (1.0-10.0) Eosinophils (%) (Auto) % (0.0-3.0) Basophils (%) (Auto) % (0.0-2.0) Differential Total Cells Counted 100 Neutrophils % (Manual) 74 % (45-75) Lymphocytes % (Manual) 19 % (20-45) L Monocytes % (Manual) 6 % (1-10) Eosinophils % (Manual) 1 % (0-3) Basophils % (Manual) 0 % (0-2) Band Neutrophils 0 % (0-8) Platelet Estimate Decreased L Platelet Morphology Normal Hypochromasia 1+ Anisocytosis 1+ Sodium Level 143 MMOL/L (136-145) Potassium Level 3.5 MMOL/L (3.5-5.1) Chloride Level 108 MMOL/L (98-107) H Carbon Dioxide Level 30 MMOL/L (21-32) Anion Gap 5 mmol/L (5-15) Blood Urea Nitrogen 17 mg/dL (7-18) Creatinine 0.8 MG/DL (0.55-1.30) Estimat Glomerular Filtration Rate > 60 mL/min (>60) Glucose Level 96 MG/DL (74-106) Uric Acid 4.5 MG/DL (2.6-7.2) Calcium Level 7.5 MG/DL (8.5-10.1) L Phosphorus Level 2.2 MG/DL (2.5-4.9) L Magnesium Level 2.0 MG/DL (1.8-2.4) Total Bilirubin 0.9 MG/DL (0.2-1.0) Aspartate Amino Transf (AST/SGOT) 14 U/L (15-37) L Alanine Aminotransferase (ALT/SGPT) 10 U/L (12-78) L Alkaline Phosphatase 44 U/L (46-116) L C-Reactive Protein, Quantitative 13.2 mg/dL (0.00-0.90) H Pro-B-Type Natriuretic Peptide Pending Total Protein 5.8 G/DL (6.4-8.2) L Albumin 2.3 G/DL (3.4-5.0) L Globulin 3.5 g/dL Albumin/Globulin Ratio 0.7 (1.0-2.7) L Current Medications Medications (Trade) Dose Ordered Sig/Angie Route PRN Reason Start Time Stop Time Status Last Admin Dose Admin Acetaminophen (Tylenol) 650 mg Q6H PRN NG Fever >100.5 05/14/20 21:00 06/13/20 20:59 05/14/20 21:10 Acetaminophen (Tylenol) 650 mg Q6H PRN NG Mild Pain (Pain Scale 1-3) 05/14/20 21:00 06/13/20 20:59 05/17/20 11:06 Barium Sulfate (Varibar Honey) 250 ml NOW PRN MC RAD 05/24/20 19:45 05/27/20 19:34 Barium Sulfate (Varibar [place]) 240 ml NOW PRN MC RAD 05/24/20 19:45 05/27/20 19:34 Barium Sulfate (Varibar Pudding) 230 ml NOW PRN MC RAD 05/24/20 19:45 05/27/20 19:34 Barium Sulfate (Varibar Thin Liquid powder) 148 gm NOW PRN MC RAD 05/24/20 19:45 05/27/20 19:34 Clonidine HCl (Catapres Tab) 0.1 mg Q4H PRN ORAL sbp>170 05/11/20 17:15 08/09/20 17:14 Dextrose/Sodium Chloride 1,000 ml @ 50 mls/hr Q20H IV 05/22/20 12:00 06/21/20 11:59 05/26/20 17:21 Docusate Sodium (Colace) 100 mg TWICE A DAY ORAL 05/25/20 18:00 06/24/20 17:59 05/27/20 08:13 Haloperidol Lactate (Haldol) 5 mg Q6H PRN IM Agitation 05/13/20 20:45 06/27/20 20:44 05/24/20 20:19 Heparin Sodium (Porcine) (Heparin 5000 units/ml) 5,000 units EVERY 12 HOURS SUBQ 05/25/20 21:00 07/09/20 20:59 05/27/20 08:14 Levothyroxine Sodium (Synthroid) 50 mcg DAILY@0630 ORAL 05/14/20 06:30 06/13/20 06:29 05/27/20 05:07 Pantoprazole (Protonix) 40 mg Q12HR ORAL 05/26/20 21:00 06/25/20 20:59 05/27/20 08:13 Polyethylene Glycol (Miralax) 17 gm BEDTIME ORAL 05/25/20 21:00 06/24/20 20:59 05/26/20 20:57 Quetiapine Fumarate (SEROqueL) 50 mg Q12HR ORAL 05/24/20 21:00 07/08/20 20:59 05/27/20 08:13 Lei Chan MD May 27, 2020 09:11
[2020-05-27 09:54] LABS: HEMATOCRIT 20.9 % (37.0-47.0); MEAN CORPUSCULAR VOLUME 95 FL (80-99); PLATELET COUNT 145 K/UL (150-450); RED CELL DISTRIBUTION WIDTH 15.4 % (11.6-14.8)
--- NOTE | 2020-05-27 11:34 | Nephrology Progress Note ---
Assessment/Plan Problem List: (1) Renal failure (ARF), acute on chronic (2) Hypercapnic respiratory failure (3) CHF exacerbation Assessment Azotemia/renal failure Acute respiratory failure most likely secondary to CHF, on mechanical ventilation History of COPD Hypertension Hyperlipemia Schizophrenia/psychosis Plan May 27: Remains on Venturi mask. Labs reviewed. Abnormal electrolytes addressed. Hemoglobin low. Will transfuse 1 unit of packed RBCs today May 26: On Venturi mask. Labs reviewed. Abnormal electrolytes addressed. Continue per consultants and pulmonary support. May 25: On Venturi mask. Lethargic. No labs drawn today. Will monitor renal parameters. Per orders. May 24: Remains extubated. Will start on diet with high alert for possible aspiration. Continue to monitor renal parameters. May 23: Continues to be extubated. On nonrebreathing mask. Labs reviewed. Renal parameters stable. Discussed with RN. Continue per current management. May 22: Now extubated on nonrebreathing mask. Labs reviewed. Renal parameters stable. Abnormal electrolytes addressed. Discussed with RN. May 21: Remains intubated. Labs reviewed. Abnormal electrolytes addressed. Discussed with RN. May 20: Remains intubated. Abnormal electrolyte noted on today's lab results and addressed. Continue per consultants. May 19: Patient remains intubated. Labs reviewed. Abnormal electrolytes addressed. Continue per current management. May 18: Patient seen in ICU. Remains intubated. Weaning is being tried. Discussed with RN. Labs reviewed. Abnormal electrolyte addressed. Continue per consultants. May 17: Labs reviewed. Remains intubated. Stable from renal standpoint of view. Continue weaning. Discussed with RN. May 16: Labs reviewed. Remains intubated. Remains full code. Stable from renal standpoint of view. Abnormal electrolytes addressed. May 15: Labs reviewed. Renal parameters stable. Discussed with RN. Patient remains intubated on ventilator and full code. Continue per consultants. May 14: Labs reviewed. Discussed with RN. Abnormal electrolyte addressed. Continue per current management. Patient seen in ICU. Discussed with RN. Today's labs pending. Patient remains on 6 mics of dopamine. Pulmonary support Monitor intake and output Monitor electrolytes Continue per consultants Per orders Subjective ROS Limited/Unobtainable: No Constitutional: Reports: malaise, weakness Objective Objective Last 24 Hour Vital Signs Date Time Temp Pulse Resp B/P (MAP) Pulse Ox O2 Delivery O2 Flow Rate FiO2 12/15/20 08:01 64 05/27/20 08:00 14.0 55 05/27/20 08:00 97.7 66 21 119/43 (68) 99 05/27/20 08:00 Venturi Mask 15.0 05/27/20 04:00 14.0 55 05/27/20 04:00 Venturi Mask 15.0 05/27/20 04:00 98.2 77 20 117/50 (72) 100 05/27/20 03:37 62 05/27/20 00:00 Venturi Mask 15.0 05/27/20 00:00 98.0 67 20 108/45 (66) 100 05/27/20 00:00 14.0 55 05/27/20 00:00 67 05/26/20 20:00 Venturi Mask 15.0 05/26/20 20:00 66 05/26/20 20:00 14.0 55 05/26/20 20:00 97.9 62 24 92/61 (71) 100 05/26/20 19:20 97 Venturi Mask 14.0 55 05/26/20 16:00 98.2 69 22 106/41 (62) 97 05/26/20 16:00 Venturi Mask 15.0 05/26/20 16:00 14.0 05/26/20 15:10 68 05/26/20 12:23 64 05/26/20 12:00 Venturi Mask 15.0 05/26/20 12:00 97.9 60 22 116/47 (70) 98 05/26/20 12:00 14.0 Intake and Output 05/26/20 05/27/20 19:00 07:00 Intake Total 750 ml 550 ml Balance 750 ml 550 ml IV Total 750 ml 550 ml Laboratory Tests 05/27/20 03:10: White Blood Count 4.5L, Red Blood Count 2.09L, Hemoglobin 6.7*L, Hematocrit 20.4L, Mean Corpuscular Volume 98, Mean Corpuscular Hemoglobin 31.9H, Mean Corpuscular Hemoglobin Concent 32.7, Red Cell Distribution Width 14.3, Platelet Count 137L, Mean Platelet Volume 7.1, Neutrophils (%) (Auto) , Lymphocytes (%) (Auto) , Monocytes (%) (Auto) , Eosinophils (%) (Auto) , Basophils (%) (Auto) , Differential Total Cells Counted 100, Neutrophils % (Manual) 74, Lymphocytes % (Manual) 19L, Monocytes % (Manual) 6, Eosinophils % (Manual) 1, Basophils % (Manual) 0, Band Neutrophils 0, Platelet Estimate DecreasedL, Platelet Morphology Normal, Hypochromasia 1+, Anisocytosis 1+, Sodium Level 143, Potassium Level 3.5, Chloride Level 108H, Carbon Dioxide Level 30, Anion Gap 5, Blood Urea Nitrogen 17, Creatinine 0.8, Estimat Glomerular Filtration Rate > 60, Glucose Level 96, Uric Acid 4.5, Calcium Level 7.5L, Phosphorus Level 2.2L, Magn esium Level 2.0, Total Bilirubin 0.9, Aspartate Amino Transf (AST/SGOT) 14L, Alanine Aminotransferase (ALT/SGPT) 10L, Alkaline Phosphatase 44L, C-Reactive Protein, Quantitative 13.2H, Pro-B-Type Natriuretic Peptide [Pending], Total Protein 5.8L, Albumin 2.3L, Globulin 3.5, Albumin/Globulin Ratio 0.7L 05/27/20 08:45: White Blood Count 5.0, Red Blood Count 2.20L, Hemoglobin 7.0L, Hematocrit 20.9L, Mean Corpuscular Volume 95, Mean Corpuscular Hemoglobin 31.6H, Mean Corpuscular Hemoglobin Concent 33.2, Red Cell Distribution Width 15.4H, Platelet Count 145L , Mean Platelet Volume 8.4, Neutrophils (%) (Auto) , Lymphocytes (%) (Auto) , Monocytes (%) (Auto) , Eosinophils (%) (Auto) , Basophils (%) (Auto) , Differential Total Cells Counted 100, Neutrophils % (Manual) 68, Lymphocytes % (Manual) 25, Monocytes % (Manual) 7, Eosinophils % (Manual) 0, Basophils % (Manual) 0, Band Neutrophils 0, Platelet Estimate DecreasedL, Platelet Morphology Normal, Hypochromasia 1+, Anisocytosis 1+ Height (Feet): 5 Height (Inches): 3.00 Weight (Pounds): 183 General Appearance: no apparent distress, lethargic Cardiovascular: normal rate Respiratory/Chest: decreased breath sounds Abdomen: distended Bryan Ochoa MD May 27, 2020 11:34
[2020-05-27 12:00] VITALS: BP 126/49
[2020-05-27] MEDS ORDERED: Potassium Phosphate 20 MM in NS 275 ML IV ONE ×2 (12:00→14:00)
--- NOTE | 2020-05-27 12:14 | Pulmonology Progress Note ---
Subjective ROS Limited/Unobtainable: No Interval Events: per RN she keeps taking off her NRB, and SaO2 drops to 79-80% Constitutional: Denies: fever HEENT: Repors: no symptoms Respiratory: Reports: no symptoms Cardiovascular: Reports: no symptoms Gastrointestinal/Abdominal: Reports: no symptoms Genitourinary: Reports: no symptoms Allergies: Coded Allergies: LITHIUM (Verified Allergy, Unknown, 02/07/19) Objective Last 24 Hour Vital Signs Date Time Temp Pulse Resp B/P (MAP) Pulse Ox O2 Delivery O2 Flow Rate FiO2 05/27/20 08:01 64 05/27/20 08:00 14.0 55 05/27/20 08:00 97.7 66 21 119/43 (68) 99 05/27/20 08:00 Venturi Mask 15.0 05/27/20 04:00 14.0 55 05/27/20 04:00 Venturi Mask 15.0 05/27/20 04:00 98.2 77 20 117/50 (72) 100 05/27/20 03:37 62 05/27/20 00:00 Venturi Mask 15.0 05/27/20 00:00 98.0 67 20 108/45 (66) 100 05/27/20 00:00 14.0 55 05/27/20 00:00 67 05/26/20 20:00 Venturi Mask 15.0 05/26/20 20:00 66 05/26/20 20:00 14.0 55 05/26/20 20:00 97.9 62 24 92/61 (71) 100 05/26/20 19:20 97 Venturi Mask 14.0 55 05/26/20 16:00 98.2 69 22 106/41 (62) 97 05/26/20 16:00 Venturi Mask 15.0 05/26/20 16:00 14.0 05/26/20 15:10 68 05/26/20 12:23 64 Intake and Output 05/26/20 05/27/20 19:00 07:00 Intake Total 750 ml 550 ml Balance 750 ml 550 ml IV Total 750 ml 550 ml Objective 05/27/2020 in SDU; s/p failed attempt at switching to NC due to patient noncompliance; currently saturating low-mid 90s when she is actually on Venturi mask 14L 05/26/2020 in SDU; keeps taking off her NRB and desats to 79-80% 05/24/2020 in ICUD; restless, saturating ok with NC 05/19/2020 Pt in ICU; full code General Appearance: no acute distress HEENT: normocephalic Respiratory: no respiratory distress, decreased breath sounds Cardiovascular: normal rate Abdomen: soft, non tender, other - obese, NG tube Extremities: other - b/l 2+ pitting edema Neurologic: disoriented Laboratory Tests 05/27/20 03:10: White Blood Count 4.5L, Red Blood Count 2.09L, Hemoglobin 6.7*L, Hematocrit 20.4L, Mean Corpuscular Volume 98, Mean Corpuscular Hemoglobin 31.9H, Mean Corpuscular Hemoglobin Concent 32.7, Red Cell Distribution Width 14.3, Platelet Count 137L, Mean Platelet Volume 7.1, Neutrophils (%) (Auto) , Lymphocytes (%) (Auto) , Monocytes (%) (Auto) , Eosinophils (%) (Auto) , Basophils (%) (Auto) , Differential Total Cells Counted 100, Neutrophils % (Manual) 74, Lymphocytes % (Manual) 19L, Monocytes % (Manual) 6, Eosinophils % (Manual) 1, Basophils % (Manual) 0, Band Neutrophils 0, Platelet Estimate DecreasedL, Platelet Morphology Normal, Hypochromasia 1+, Anisocytosis 1+, Sodium Level 143, Potassium Level 3.5, Chloride Level 108H, Carbon Dioxide Level 30, Anion Gap 5, Blood Urea Nitrogen 17, Creatinine 0.8, Estimat Glomerular Filtration Rate > 60, Glucose Level 96, Uric Acid 4.5, Calcium Level 7.5L, Phosphorus Level 2.2L, Magnesium Level 2.0, Total Bilirubin 0.9, Aspartate Amino Transf (AST/SGOT) 14L, Alanine Aminotransferase (ALT/SGPT) 10L, Alkaline Phosphatase 44L, C-Reactive Protein, Quantitative 13.2H, Pro-B-Type Natriuretic Peptide [Pending], Total Protein 5.8L, Albumin 2.3L, Globulin 3.5, Albumin/Globulin Ratio 0.7L 05/27/20 08:45: White Blood Count 5.0, Red Blood Count 2.20L, Hemoglobin 7.0L, Hematocrit 20.9L, Mean Corpuscular Volume 95, Mean Corpuscular Hemoglobin 31.6H, Mean Corpuscular Hemoglobin Concent 33.2, Red Cell Distribution Width 15.4H, Platelet Count 145L , Mean Platelet Volume 8.4, Neutrophils (%) (Auto) , Lymphocytes (%) (Auto) , Monocytes (%) (Auto) , Eosinophils (%) (Auto) , Basophils (%) (Auto) , Differential Total Cells Counted 100, Neutrophils % (Manual) 68, Lymphocytes % (Manual) 25, Monocytes % (Manual) 7, Eosinophils % (Manual) 0, Basophils % (Manual) 0, Band Neutrophils 0, Platelet Estimate DecreasedL, Platelet Morphology Normal, Hypochromasia 1+, Anisocytosis 1+ Current Medications Medications (Trade) Dose Ordered Sig/Angie Route PRN Reason Start Time Stop Time Status Last Admin Dose Admin Acetaminophen (Tylenol) 650 mg Q6H PRN NG Fever >100.5 05/14/20 21:00 06/13/20 20:59 05/14/20 21:10 Acetaminophen (Tylenol) 650 mg Q6H PRN NG Mild Pain (Pain Scale 1-3) 05/14/20 21:00 06/13/20 20:59 05/17/20 11:06 Barium Sulfate (Varibar Honey) 250 ml NOW PRN MC RAD 05/24/20 19:45 05/27/20 19:34 Barium Sulfate (Varibar [place]) 240 ml NOW PRN MC RAD 05/24/20 19:45 05/27/20 19:34 Barium Sulfate (Varibar Pudding) 230 ml NOW PRN MC RAD 05/24/20 19:45 05/27/20 19:34 Barium Sulfate (Varibar Thin Liquid powder) 148 gm NOW PRN MC RAD 05/24/20 19:45 05/27/20 19:34 Clonidine HCl (Catapres Tab) 0.1 mg Q4H PRN ORAL sbp>170 05/11/20 17:15 08/09/20 17:14 Docusate Sodium (Colace) 100 mg TWICE A DAY ORAL 05/25/20 18:00 06/24/20 17:59 05/27/20 08:13 Haloperidol Lactate (Haldol) 5 mg Q6H PRN IM Agitation 05/13/20 20:45 06/27/20 20:44 05/24/20 20:19 Heparin Sodium (Porcine) (Heparin 5000 units/ml) 5,000 units EVERY 12 HOURS SUBQ 05/25/20 21:00 07/09/20 20:59 05/27/20 08:14 Levothyroxine Sodium (Synthroid) 50 mcg DAILY@0630 ORAL 05/14/20 06:30 06/13/20 06:29 05/27/20 05:07 Pantoprazole (Protonix) 40 mg Q12HR ORAL 05/26/20 21:00 06/25/20 20:59 05/27/20 08:13 Polyethylene Glycol (Miralax) 17 gm BEDTIME ORAL 05/25/20 21:00 06/24/20 20:59 05/26/20 20:57 Potassium Phosphate 20 mm/ Sodium Chloride 281.6667 ml @ 46.944 m... ONCE ONCE IV 05/27/20 14:00 05/27/20 19:59 Quetiapine Fumarate (SEROqueL) 50 mg Q12HR ORAL 05/24/20 21:00 07/08/20 20:59 05/27/20 08:13 Assessment/Plan Assessment/Plan 1. Bilateral COVID-19 multilobar pneumonia. - s/p ETT - Afebrile - s/p Azithromycin, Ceftriaxone, dexamethasone - s/p remdesivir 2. Hx of COPD. 3. Schizophrenia/psychosis - On dopamine, haloperidol 4. Hypoxia. - on Venturi mask, desats to 79-80% when she contantly takes her mask off, s/p self extubation - s/p 5 lpm NC; pt noncompliance - keep her on venturi mask, while maintaining good seal around the mask 5. Anemia - pRBC ordered per Dr. Ochoa 6. Azotemia/renal failure - UA: Positive leuk esterase, protein, RBC, WBC (05/11/2020) - BUN 32 -> 39 -> 34 -> 25 DVT ppx The care for this patient was discussed with my supervising physician Time spent for this case was 31 minutes The patient was seen and examined at bedside and all new and available data was reviewed in the patients chart. I agree with the above findings, impression, and plan. (Patient was seen earlier today. Signature timestamp does not reflect patient encounter time) Trae Arriaga MD May 27, 2020 12:14 Sincere Myers MD May 27, 2020 18:11
--- NOTE | 2020-05-27 13:29 | Surgery Progress Note ---
Surgery Progress Note Subjective Additional Comments no acute events comfortable on oxygen no n/v labs noted Objective Last 24 Hour Vital Signs Date Time Temp Pulse Resp B/P (MAP) Pulse Ox O2 Delivery O2 Flow Rate FiO2 05/27/20 12:00 97.5 66 20 126/49 (74) 100 05/27/20 12:00 Venturi Mask 15.0 05/27/20 12:00 14.0 55 05/27/20 11:44 66 05/27/20 08:01 64 05/27/20 08:00 14.0 55 05/27/20 08:00 97.7 66 21 119/43 (68) 99 05/27/20 08:00 Venturi Mask 15.0 05/27/20 04:00 14.0 55 05/27/20 04:00 Venturi Mask 15.0 05/27/20 04:00 98.2 77 20 117/50 (72) 100 05/27/20 03:37 62 05/27/20 00:00 Venturi Mask 15.0 05/27/20 00:00 98.0 67 20 108/45 (66) 100 05/27/20 00:00 14.0 55 05/27/20 00:00 67 05/26/20 20:00 Venturi Mask 15.0 05/26/20 20:00 66 05/26/20 20:00 14.0 55 05/26/20 20:00 97.9 62 24 92/61 (71) 100 05/26/20 19:20 97 Venturi Mask 14.0 55 05/26/20 16:00 98.2 69 22 106/41 (62) 97 05/26/20 16:00 Venturi Mask 15.0 05/26/20 16:00 14.0 05/26/20 15:10 68 I&O Intake and Output 05/26/20 05/27/20 19:00 07:00 Intake Total 750 ml 550 ml Balance 750 ml 550 ml IV Total 750 ml 550 ml Dressing: saturated Cardiovascular: RSR Respiratory: decreased breath sounds Abdomen: non-tender, present bowel sounds Extremities: no tenderness, no cyanosis Laboratory Tests Test 05/27/20 03:10 05/27/20 08:45 White Blood Count 4.5 K/UL (4.8-10.8) L 5.0 K/UL (4.8-10.8) Red Blood Count 2.09 M/UL (4.20-5.40) L 2.20 M/UL (4.20-5.40) L Hemoglobin 6.7 G/DL (12.0-16.0) *L 7.0 G/DL (12.0-16.0) L Hematocrit 20.4 % (37.0-47.0) L 20.9 % (37.0-47.0) L Mean Corpuscular Volume 98 FL (80-99) 95 FL (80-99) Mean Corpuscular Hemoglobin 31.9 PG (27.0-31.0) H 31.6 PG (27.0-31.0) H Mean Corpuscular Hemoglobin Concent 32.7 G/DL (32.0-36.0) 33.2 G/DL (32.0-36.0) Red Cell Distribution Width 14.3 % (11.6-14.8) 15.4 % (11.6-14.8) H Platelet Count 137 K/UL (150-450) L 145 K/UL (150-450) L Mean Platelet Volume 7.1 FL (6.5-10.1) 8.4 FL (6.5-10.1) Neutrophils (%) (Auto) % (45.0-75.0) % (45.0-75.0) Lymphocytes (%) (Auto) % (20.0-45.0) % (20.0-45.0) Monocytes (%) (Auto) % (1.0-10.0) % (1.0-10.0) Eosinophils (%) (Auto) % (0.0-3.0) % (0.0-3.0) Basophils (%) (Auto) % (0.0-2.0) % (0.0-2.0) Differential Total Cells Counted 100 100 Neutrophils % (Manual) 74 % (45-75) 68 % (45-75) Lymphocytes % (Manual) 19 % (20-45) L 25 % (20-45) Monocytes % (Manual) 6 % (1-10) 7 % (1-10) Eosinophils % (Manual) 1 % (0-3) 0 % (0-3) Basophils % (Manual) 0 % (0-2) 0 % (0-2) Band Neutrophils 0 % (0-8) 0 % (0-8) Platelet Estimate Decreased L Decreased L Platelet Morphology Normal Normal Hypochromasia 1+ 1+ Anisocytosis 1+ 1+ Sodium Level 143 MMOL/L (136-145) Potassium Level 3.5 MMOL/L (3.5-5.1) Chloride Level 108 MMOL/L (98-107) H Carbon Dioxide Level 30 MMOL/L (21-32) Anion Gap 5 mmol/L (5-15) Blood Urea Nitrogen 17 mg/dL (7-18) Creatinine 0.8 MG/DL (0.55-1.30) Estimat Glomerular Filtration Rate > 60 mL/min (>60) Glucose Level 96 MG/DL (74-106) Uric Acid 4.5 MG/DL (2.6-7.2) Calcium Level 7.5 MG/DL (8.5-10.1) L Phosphorus Level 2.2 MG/DL (2.5-4.9) L Magnesium Level 2.0 MG/DL (1.8-2.4) Total Bilirubin 0.9 MG/DL (0.2-1.0) Aspartate Amino Transf (AST/SGOT) 14 U/L (15-37) L Alanine Aminotransferase (ALT/SGPT) 10 U/L (12-78) L Alkaline Phosphatase 44 U/L (46-116) L C-Reactive Protein, Quantitative 13.2 mg/dL (0.00-0.90) H Pro-B-Type Natriuretic Peptide Pending Total Protein 5.8 G/DL (6.4-8.2) L Albumin 2.3 G/DL (3.4-5.0) L Globulin 3.5 g/dL Albumin/Globulin Ratio 0.7 (1.0-2.7) L Plan Problems: (1) Anemia (2) Hypercapnic respiratory failure Assessment & Plan: respiratory insufficiency requiring prolonged ventilatory support unable to wean vent safely after multiple attempts discussed with pcp. discussed with pulm discussed with patient guardian. patient unable to consent. no nok or poa. given critical care and condition not recommended to await court decision which during pandemic can take long time. medically necessary to proceed with trach in patients best interest. 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
[2020-05-27 16:00] VITALS: BP 112/44
--- NOTE | 2020-05-27 17:35 | General Progress Note ---
Subjective Allergies: Coded Allergies: LITHIUM (Verified Allergy, Unknown, 02/07/19) Subjective above noted d/w air liaison and special staff eating OK, but desaturates easily w/o FM Objective Last 24 Hour Vital Signs Date Time Temp Pulse Resp B/P (MAP) Pulse Ox O2 Delivery O2 Flow Rate FiO2 05/27/20 12:00 97.5 66 20 126/49 (74) 100 05/27/20 12:00 Venturi Mask 15.0 05/27/20 12:00 14.0 55 05/27/20 11:44 66 05/27/20 08:01 64 05/27/20 08:00 14.0 55 05/27/20 08:00 97.7 66 21 119/43 (68) 99 05/27/20 08:00 Venturi Mask 15.0 05/27/20 04:00 14.0 55 05/27/20 04:00 Venturi Mask 15.0 05/27/20 04:00 98.2 77 20 117/50 (72) 100 05/27/20 03:37 62 05/27/20 00:00 Venturi Mask 15.0 05/27/20 00:00 98.0 67 20 108/45 (66) 100 05/27/20 00:00 14.0 55 05/27/20 00:00 67 05/26/20 20:00 Venturi Mask 15.0 05/26/20 20:00 66 05/26/20 20:00 14.0 55 05/26/20 20:00 97.9 62 24 92/61 (71) 100 05/26/20 19:20 97 Venturi Mask 14.0 55 Intake and Output 05/26/20 05/27/20 19:00 07:00 Intake Total 750 ml 550 ml Balance 750 ml 550 ml IV Total 750 ml 550 ml Laboratory Tests 05/27/20 03:10: White Blood Count 4.5L, Red Blood Count 2.09L, Hemoglobin 6.7*L, Hematocrit 20.4L, Mean Corpuscular Volume 98, Mean Corpuscular Hemoglobin 31.9H, Mean Corpuscular Hemoglobin Concent 32.7, Red Cell Distribution Width 14.3, Platelet Count 137L, Mean Platelet Volume 7.1, Neutrophils (%) (Auto) , Lymphocytes (%) (Auto) , Monocytes (%) (Auto) , Eosinophils (%) (Auto) , Basophils (%) (Auto) , Differential Total Cells Counted 100, Neutrophils % (Manual) 74, Lymphocytes % (Manual) 19L, Monocytes % (Manual) 6, Eosinophils % (Manual) 1, Basophils % (Manual) 0, Band Neutrophils 0, Platelet Estimate DecreasedL, Platelet Morphology Normal, Hypochromasia 1+, Anisocytosis 1+, Sodium Level 143, Potassium Level 3.5, Chloride Level 108H, Carbon Dioxide Level 30, Anion Gap 5, Blood Urea Nitrogen 17, Creatinine 0.8, Estimat Glomerular Filtration Rate > 60, Glucose Level 96, Uric Acid 4.5, Calcium Level 7.5L, Phosphorus Level 2.2L, Magnesium Level 2.0, Total Bilirubin 0.9, Aspartate Amino Transf (AST/SGOT) 14L, Alanine Aminotransferase (ALT/SGPT) 10L, Alkaline Phosphatase 44L, C-Reactive Protein, Quantitative 13.2H, Pro-B-Type Natriuretic Peptide [Pending], Total Protein 5.8L, Albumin 2.3L, Globulin 3.5, Albumin/Globulin Ratio 0.7L 05/27/20 08:45: White Blood Count 5.0, Red Blood Count 2.20L, Hemoglobin 7.0L, Hematocrit 20.9L, Mean Corpuscular Volume 95, Mean Corpuscular Hemoglobin 31.6H, Mean Corpuscular Hemoglobin Concent 33.2, Red Cell Distribution Width 15.4H, Platelet Count 145L , Mean Platelet Volume 8.4, Neutrophils (%) (Auto) , Lymphocytes (%) (Auto) , Monocytes (%) (Auto) , Eosinophils (%) (Auto) , Basophils (%) (Auto) , Differential Total Cells Counted 100, Neutrophils % (Manual) 68, Lymphocytes % (Manual) 25, Monocytes % (Manual) 7, Eosinophils % (Manual) 0, Basophils % (Manual) 0, Band Neutrophils 0, Platelet Estimate DecreasedL, Platelet Morphology Normal, Hypochromasia 1+, Anisocytosis 1+ Height (Feet): 5 Height (Inches): 3.00 Weight (Pounds): 183 Objective WDWN WW restless Face mask O2 exam limited due to COVID isolation Assessment/Plan Status: progressing, unchanged Assessment/Plan: Assessment/Plan (1) Hypertension (2) Schizophrenia (3) Hyperlipidemia (4) Parkinson disease (5) Anemia (6) Obese (7) COVID (+) (8) Hypoxia Recommendations ppi BID Follow H&H Transfuse to keep Hg>7.0 po as tolerated GI procedures at a later date, if needed bowel regimen Aria Chicas MD May 27, 2020 17:35
--- NOTE | 2020-05-27 19:24 | Cardiac Electrophysiology PN ---
Assessment/Plan Assessment/Plan 1. Covid PNA and respiratory failure. Self extubated on 14 liter VM 2. History of COPD. 3. Hypotension. Off Dopamine. EF 55% 4. Bradycardia resolved and is off Dopamine 5. Schizophrenia and psychosis. YOSELYN RN Subjective Subjective Self extubated on 05/22/20 on 14 liter VM out of ICU in Covid isolation No events. In SR Objective Last 24 Hour Vital Signs Date Time Temp Pulse Resp B/P (MAP) Pulse Ox O2 Delivery O2 Flow Rate FiO2 05/27/20 16:00 97.7 67 21 112/44 (66) 94 05/27/20 16:00 Venturi Mask 15.0 05/27/20 16:00 14.0 55 05/27/20 15:38 68 05/27/20 12:00 97.5 66 20 126/49 (74) 100 05/27/20 12:00 Venturi Mask 15.0 05/27/20 12:00 14.0 55 05/27/20 11:44 66 05/27/20 08:01 64 05/27/20 08:00 14.0 55 05/27/20 08:00 97.7 66 21 119/43 (68) 99 05/27/20 08:00 Venturi Mask 15.0 05/27/20 04:00 14.0 55 05/27/20 04:00 Venturi Mask 15.0 05/27/20 04:00 98.2 77 20 117/50 (72) 100 05/27/20 03:37 62 05/27/20 00:00 Venturi Mask 15.0 05/27/20 00:00 98.0 67 20 108/45 (66) 100 05/27/20 00:00 14.0 55 05/27/20 00:00 67 05/26/20 20:00 Venturi Mask 15.0 05/26/20 20:00 66 05/26/20 20:00 14.0 55 05/26/20 20:00 97.9 62 24 92/61 (71) 100 Intake and Output 05/26/20 05/27/20 19:00 07:00 Intake Total 750 ml 550 ml Balance 750 ml 550 ml IV Total 750 ml 550 ml Laboratory Tests Test 05/27/20 03:10 05/27/20 08:45 White Blood Count 4.5 K/UL (4.8-10.8) L 5.0 K/UL (4.8-10.8) Red Blood Count 2.09 M/UL (4.20-5.40) L 2.20 M/UL (4.20-5.40) L Hemoglobin 6.7 G/DL (12.0-16.0) *L 7.0 G/DL (12.0-16.0) L Hematocrit 20.4 % (37.0-47.0) L 20.9 % (37.0-47.0) L Mean Corpuscular Volume 98 FL (80-99) 95 FL (80-99) Mean Corpuscular Hemoglobin 31.9 PG (27.0-31.0) H 31.6 PG (27.0-31.0) H Mean Corpuscular Hemoglobin Concent 32.7 G/DL (32.0-36.0) 33.2 G/DL (32.0-36.0) Red Cell Distribution Width 14.3 % (11.6-14.8) 15.4 % (11.6-14.8) H Platelet Count 137 K/UL (150-450) L 145 K/UL (150-450) L Mean Platelet Volume 7.1 FL (6.5-10.1) 8.4 FL (6.5-10.1) Neutrophils (%) (Auto) % (45.0-75.0) % (45.0-75.0) Lymphocytes (%) (Auto) % (20.0-45.0) % (20.0-45.0) Monocytes (%) (Auto) % (1.0-10.0) % (1.0-10.0) Eosinophils (%) (Auto) % (0.0-3.0) % (0.0-3.0) Basophils (%) (Auto) % (0.0-2.0) % (0.0-2.0) Differential Total Cells Counted 100 100 Neutrophils % (Manual) 74 % (45-75) 68 % (45-75) Lymphocytes % (Manual) 19 % (20-45) L 25 % (20-45) Monocytes % (Manual) 6 % (1-10) 7 % (1-10) Eosinophils % (Manual) 1 % (0-3) 0 % (0-3) Basophils % (Manual) 0 % (0-2) 0 % (0-2) Band Neutrophils 0 % (0-8) 0 % (0-8) Platelet Estimate Decreased L Decreased L Platelet Morphology Normal Normal Hypochromasia 1+ 1+ Anisocytosis 1+ 1+ Sodium Level 143 MMOL/L (136-145) Potassium Level 3.5 MMOL/L (3.5-5.1) Chloride Level 108 MMOL/L (98-107) H Carbon Dioxide Level 30 MMOL/L (21-32) Anion Gap 5 mmol/L (5-15) Blood Urea Nitrogen 17 mg/dL (7-18) Creatinine 0.8 MG/DL (0.55-1.30) Estimat Glomerular Filtration Rate > 60 mL/min (>60) Glucose Level 96 MG/DL (74-106) Uric Acid 4.5 MG/DL (2.6-7.2) Calcium Level 7.5 MG/DL (8.5-10.1) L Phosphorus Level 2.2 MG/DL (2.5-4.9) L Magnesium Level 2.0 MG/DL (1.8-2.4) Total Bilirubin 0.9 MG/DL (0.2-1.0) Aspartate Amino Transf (AST/SGOT) 14 U/L (15-37) L Alanine Aminotransferase (ALT/SGPT) 10 U/L (12-78) L Alkaline Phosphatase 44 U/L (46-116) L C-Reactive Protein, Quantitative 13.2 mg/dL (0.00-0.90) H Pro-B-Type Natriuretic Peptide 1414.0 pg/mL (0-125) H Total Protein 5.8 G/DL (6.4-8.2) L Albumin 2.3 G/DL (3.4-5.0) L Globulin 3.5 g/dL Albumin/Globulin Ratio 0.7 (1.0-2.7) L Objective HEAD AND NECK: Positive JVD. LUNGS: Decreased breath sounds. CARDIOVASCULAR: Regular S1 and S2 with no gallop. ABDOMEN: Obese. EXTREMITIES: Bilateral 2+ pitting edema. Cameron Davies MD May 27, 2020 19:24
[2020-05-27 20:00] VITALS: BP 103/57
[2020-05-27] MEDS: Miralax 17gm pkt ORAL SCH (21:00)
--- NOTE | 2020-05-27 21:03 | General Progress Note ---
Subjective ROS Limited/Unobtainable: Yes Allergies: Coded Allergies: LITHIUM (Verified Allergy, Unknown, 02/07/19) Objective Last 24 Hour Vital Signs Date Time Temp Pulse Resp B/P (MAP) Pulse Ox O2 Delivery O2 Flow Rate FiO2 05/27/20 16:00 97.7 67 21 112/44 (66) 94 05/27/20 16:00 Venturi Mask 15.0 05/27/20 16:00 14.0 55 05/27/20 15:38 68 05/27/20 12:00 97.5 66 20 126/49 (74) 100 05/27/20 12:00 Venturi Mask 15.0 05/27/20 12:00 14.0 55 05/27/20 11:44 66 05/27/20 08:01 64 05/27/20 08:00 14.0 55 05/27/20 08:00 97.7 66 21 119/43 (68) 99 05/27/20 08:00 Venturi Mask 15.0 05/27/20 04:00 14.0 55 05/27/20 04:00 Venturi Mask 15.0 05/27/20 04:00 98.2 77 20 117/50 (72) 100 05/27/20 03:37 62 05/27/20 00:00 Venturi Mask 15.0 05/27/20 00:00 98.0 67 20 108/45 (66) 100 05/27/20 00:00 14.0 55 05/27/20 00:00 67 Intake and Output 05/26/20 05/27/20 19:00 07:00 Intake Total 750 ml 550 ml Balance 750 ml 550 ml IV Total 750 ml 550 ml Laboratory Tests 05/27/20 03:10: White Blood Count 4.5L, Red Blood Count 2.09L, Hemoglobin 6.7*L, Hematocrit 20.4L, Mean Corpuscular Volume 98, Mean Corpuscular Hemoglobin 31.9H, Mean Corpuscular Hemoglobin Concent 32.7, Red Cell Distribution Width 14.3, Platelet Count 137L, Mean Platelet Volume 7.1, Neutrophils (%) (Auto) , Lymphocytes (%) (Auto) , Monocytes (%) (Auto) , Eosinophils (%) (Auto) , Basophils (%) (Auto) , Differential Total Cells Counted 100, Neutrophils % (Manual) 74, Lymphocytes % (Manual) 19L, Monocytes % (Manual) 6, Eosinophils % (Manual) 1, Basophils % (Manual) 0, Band Neutrophils 0, Platelet Estimate DecreasedL, Platelet Morphology Normal, Hypochromasia 1+, Anisocytosis 1+, Sodium Level 143, Potassium Level 3.5, Chloride Level 108H, Carbon Dioxide Level 30, Anion Gap 5, Blood Urea Nitrogen 17, Creatinine 0.8, Estimat Glomerular Filtration Rate > 60, Glucose Level 96, Uric Acid 4.5, Calcium Level 7.5L, Phosphorus Level 2.2L, Mag nesium Level 2.0, Total Bilirubin 0.9, Aspartate Amino Transf (AST/SGOT) 14L, Alanine Aminotransferase (ALT/SGPT) 10L, Alkaline Phosphatase 44L, C-Reactive Protein, Quantitative 13.2H, Pro-B-Type Natriuretic Peptide 1414.0H, Total Protein 5.8L, Albumin 2.3L, Globulin 3.5, Albumin/Globulin Ratio 0.7L 05/27/20 08:45: White Blood Count 5.0, Red Blood Count 2.20L, Hemoglobin 7.0L, Hematocrit 20.9L, Mean Corpuscular Volume 95, Mean Corpuscular Hemoglobin 31.6H, Mean Corpuscular Hemoglobin Concent 33.2, Red Cell Distribution Width 15.4H, Platelet Count 145L, Mean Platelet Volume 8.4, Neutrophils (%) (Auto) , Lymphocytes (%) (Auto) , Monocytes (%) (Auto) , Eosinophils (%) (Auto) , Basophils (%) (Auto) , Differential Total Cells Counted 100, Neutrophils % (Manual) 68, Lymphocytes % (Manual) 25, Monocytes % (Manual) 7, Eosinophils % (Manual) 0, Basophils % (Manual) 0, Band Neutrophils 0, Platelet Estimate DecreasedL, Platelet Morphology Normal, Hypochromasia 1+, Anisocytosis 1+ Height (Feet): 5 Height (Inches): 3.00 Weight (Pounds): 183 Assessment/Plan Problem List: (1) Anemia ICD Codes: D64.9 - Anemia, unspecified SNOMED: 095396378 (2) Hypercapnic respiratory failure ICD Codes: J96.92 - Respiratory failure, unspecified with hypercapnia SNOMED: 411087300 (3) COVID-19 ICD Codes: U07.1 - COVID-19 SNOMED: 448090621 (4) COPD (chronic obstructive pulmonary disease) ICD Codes: J44.9 - Chronic obstructive pulmonary disease, unspecified SNOMED: 32457310 (5) Psychosis ICD Codes: F29 - Unspecified psychosis not due to a substance or known physiological condition SNOMED: 53881801 (6) Hypoxia ICD Codes: R09.02 - Hypoxemia SNOMED: 160938279 (7) Renal failure (ARF), acute on chronic ICD Codes: N17.9 - Acute kidney failure, unspecified; N18.9 - Chronic kidney disease, unspecified SNOMED: 478072589 (8) CHF exacerbation ICD Codes: I50.9 - Heart failure, unspecified SNOMED: 037090390, 09403206051073 Status: progressing, unchanged Assessment/Plan: mildy improving no wheezing no fever covid positive pna sepsis copd exac chf exac improving Dani Perera MD May 27, 2020 21:03
[2020-05-27] MEDS ORDERED: NS 275ml ONE (22:40)
--- NOTE | 2020-05-27 23:15 | Psychiatric Progress Note ---
Psychiatry Progress Note Psychiatry Progress Note Subjective the pt has waxing and waning o consciousness on restraints episodes agitation Medications Current Medications Medications (Trade) Dose Ordered Sig/Angie Route PRN Reason Start Time Stop Time Status Last Admin Dose Admin Acetaminophen (Tylenol) 650 mg Q6H PRN NG Fever >100.5 05/14/20 21:00 06/13/20 20:59 05/14/20 21:10 Acetaminophen (Tylenol) 650 mg Q6H PRN NG Mild Pain (Pain Scale 1-3) 05/14/20 21:00 06/13/20 20:59 05/17/20 11:06 Clonidine HCl (Catapres Tab) 0.1 mg Q4H PRN ORAL sbp>170 05/11/20 17:15 08/09/20 17:14 Docusate Sodium (Colace) 100 mg TWICE A DAY ORAL 05/25/20 18:00 06/24/20 17:59 05/27/20 18:13 Haloperidol Lactate (Haldol) 5 mg Q6H PRN IM Agitation 05/13/20 20:45 06/27/20 20:44 05/24/20 20:19 Heparin Sodium (Porcine) (Heparin 5000 units/ml) 5,000 units EVERY 12 HOURS SUBQ 05/25/20 21:00 07/09/20 20:59 05/27/20 08:14 Levothyroxine Sodium (Synthroid) 50 mcg DAILY@0630 ORAL 05/14/20 06:30 06/13/20 06:29 05/27/20 05:07 Pantoprazole (Protonix) 40 mg Q12HR ORAL 05/26/20 21:00 06/25/20 20:59 05/27/20 21:22 Polyethylene Glycol (Miralax) 17 gm BEDTIME ORAL 05/25/20 21:00 06/24/20 20:59 05/26/20 20:57 Quetiapine Fumarate (SEROqueL) 50 mg Q12HR ORAL 05/24/20 21:00 07/08/20 20:59 05/27/20 21:22 Neurological/Psychiatric: Reports: anxiety, depressed, emotional problems Allergies: Coded Allergies: LITHIUM (Verified Allergy, Unknown, 02/07/19) Objective Data Height (Feet): 5 Height (Inches): 3.00 Weight (Pounds): 183 General Appearance: confused, mild distress, agitated Additional Comments: waxing and waning consciousness. Disoriented. Mood is neutral to agitation. Affect is flat. Thought process, there is paucity of thought process. Thought content, no suicidal or homicidal ideation. Cognition is impaired. Insight and judgment is impaired. Assessment/Plan [place] I: [place] I Acute toxic encephalopathy. Schizophrenia. [place] II Deferred. [place] III COVID-19. [place] IV Low. [place] V 20 PLAN: 1. Discontinue the IV Haldol. 2. Start the patient on Haldol IM. 3. The patient benefits from bilateral soft restraints. 4. Provide the patient with reality orientation. 5. Discussed with the nurse. Status: progressing, unchanged Status Narrative [place] I Acute toxic encephalopathy. Schizophrenia. [place] II Deferred. [place] III COVID-19. [place] IV Low. [place] V 20 PLAN: 1. Discontinue the IV Haldol. 2. Start the patient on Haldol IM. 3. The patient benefits from bilateral soft restraints. 4. Provide the patient with reality orientation. 5. Discussed with the nurse. Assessment/Plan: [place] I Acute toxic encephalopathy. Schizophrenia. [place] II Deferred. [place] III COVID-19. [place] IV Low. [place] V 20 PLAN: 1. Discontinue the IV Haldol. 2. Start the patient on Haldol IM. 3. The patient benefits from bilateral soft restraints. 4. Provide the patient with reality orientation. 5. Discussed with the nurse. Kiana Hernandez MD May 27, 2020 23:15
[2020-05-28] VITALS (7 sets, daily range): BP systolic 104–122; BP diastolic 41–52
[2020-05-28] MEDS: Haloperidol 5mg/ml Inj IM PRN (02:40)
[2020-05-28] MEDS: Docusate 100mg cap ORAL SCH ×2 (08:18→17:00)
[2020-05-28] MEDS: Heparin 5000 units/ml inj SUBQ SCH ×2 (08:18→21:09)
[2020-05-28] MEDS ORDERED: Lidocaine 1% Plain 30 ml INJ SCH (10:00)
[2020-05-28] MEDS ORDERED: Heparin1,000 units/500ml Premix(Conc:2 units/ml) INJ SCH (10:00)
--- NOTE | 2020-05-28 11:08 | Infectious Diseases Prog Note ---
Assessment/Plan Assessment/Plan IMPRESSION: COVID-19 disease, Acute respiratory failure, COPD, Diastolic CHF, Mitral valve regurgitation, Anemia, Parkinson disease, schizoaffective disorder, Dementia, Obstructive sleep apnea, Hypothyroidism. 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 RECOMMENDATION: Finished dexamethasone & Remdesivir course Observe off of antibiotic Subjective ROS Limited/Unobtainable: Yes Neurologic: Reports: confusion, other - on restraint Allergies: Coded Allergies: LITHIUM (Verified Allergy, Unknown, 02/07/19) Objective Last 24 Hour Vital Signs Date Time Temp Pulse Resp B/P (MAP) Pulse Ox O2 Delivery O2 Flow Rate FiO2 05/28/20 08:00 14.0 55 05/28/20 08:00 Venturi Mask 15.0 05/28/20 08:00 97.6 69 20 122/41 (68) 100 05/28/20 07:48 61 05/28/20 04:00 Venturi Mask 15.0 05/28/20 04:00 14.0 55 05/28/20 04:00 63 05/28/20 04:00 97.3 64 20 104/42 (62) 100 05/28/20 00:00 Venturi Mask 15.0 05/28/20 00:00 97.3 77 20 114/48 (70) 94 05/27/20 20:00 88 05/27/20 20:00 97.5 72 20 103/57 (72) 95 05/27/20 20:00 Venturi Mask 15.0 05/27/20 20:00 14.0 55 05/27/20 19:36 100 Venturi Mask 14.0 55 05/27/20 16:00 97.7 67 21 112/44 (66) 94 05/27/20 16:00 Venturi Mask 15.0 05/27/20 16:00 14.0 55 05/27/20 15:38 68 05/27/20 12:00 97.5 66 20 126/49 (74) 100 05/27/20 12:00 Venturi Mask 15.0 05/27/20 12:00 14.0 55 05/27/20 11:44 66 Height (Feet): 5 Height (Inches): 3.00 Weight (Pounds): 183 HEENT: mucous membranes moist Respiratory/Chest: other - oxygen by mask Cardiovascular: normal rate Abdomen: soft, non tender Extremities: no edema Neurologic/Psychiatric: other - sleeping Current Medications Medications (Trade) Dose Ordered Sig/Angie Route PRN Reason Start Time Stop Time Status Last Admin Dose Admin Acetaminophen (Tylenol) 650 mg Q6H PRN NG Fever >100.5 05/14/20 21:00 06/13/20 20:59 05/14/20 21:10 Acetaminophen (Tylenol) 650 mg Q6H PRN NG Mild Pain (Pain Scale 1-3) 05/14/20 21:00 06/13/20 20:59 05/17/20 11:06 Clonidine HCl (Catapres Tab) 0.1 mg Q4H PRN ORAL sbp>170 05/11/20 17:15 08/09/20 17:14 Docusate Sodium (Colace) 100 mg TWICE A DAY ORAL 05/25/20 18:00 06/24/20 17:59 05/27/20 18:13 Haloperidol Lactate (Haldol) 5 mg Q6H PRN IM Agitation 05/13/20 20:45 06/27/20 20:44 05/28/20 02:40 Heparin Sodium (Porcine) (Heparin 5000 units/ml) 5,000 units EVERY 12 HOURS SUBQ 05/25/20 21:00 07/09/20 20:59 05/27/20 08:14 Heparin Sodium/ Sodium Chloride (Heparin 1000 units/500ml Premix) 1,000 unit ONCE INJ 05/28/20 10:00 05/28/20 23:59 Levothyroxine Sodium (Synthroid) 50 mcg DAILY@0630 ORAL 05/14/20 06:30 06/13/20 06:29 05/28/20 05:56 Lidocaine HCl (Xylocaine 1% 30ml) 30 ml ONCE INJ 05/28/20 10:00 05/28/20 23:59 Pantoprazole (Protonix) 40 mg Q12HR ORAL 05/26/20 21:00 06/25/20 20:59 05/28/20 08:19 Polyethylene Glycol (Miralax) 17 gm BEDTIME ORAL 05/25/20 21:00 06/24/20 20:59 05/26/20 20:57 Quetiapine Fumarate (SEROqueL) 50 mg Q12HR ORAL 05/24/20 21:00 07/08/20 20:59 05/28/20 08:19 Lei Chan MD May 28, 2020 11:08
--- NOTE | 2020-05-28 12:22 | Cardiac Electrophysiology PN ---
Assessment/Plan Assessment/Plan 1. Covid PNA and respiratory failure. Self extubated on 100% NRBFM 2. History of COPD. 3. Hypotension. Off Dopamine. EF 55% 4. Bradycardia resolved 5. Schizophrenia and psychosis. YOSELYN RN Subjective Subjective Self extubated on 05/22/20 on 100% NRB FM out of ICU in Covid isolation No events. In SR Objective Last 24 Hour Vital Signs Date Time Temp Pulse Resp B/P (MAP) Pulse Ox O2 Delivery O2 Flow Rate FiO2 05/28/20 12:00 14.0 55 05/28/20 12:00 Venturi Mask 15.0 05/28/20 08:00 14.0 55 05/28/20 08:00 Venturi Mask 15.0 05/28/20 08:00 97.6 69 20 122/41 (68) 100 05/28/20 07:48 61 05/28/20 04:00 Venturi Mask 15.0 05/28/20 04:00 14.0 55 05/28/20 04:00 63 05/28/20 04:00 97.3 64 20 104/42 (62) 100 05/28/20 00:00 Venturi Mask 15.0 05/28/20 00:00 97.3 77 20 114/48 (70) 94 05/27/20 20:00 88 05/27/20 20:00 97.5 72 20 103/57 (72) 95 05/27/20 20:00 Venturi Mask 15.0 05/27/20 20:00 14.0 55 05/27/20 19:36 100 Venturi Mask 14.0 55 05/27/20 16:00 97.7 67 21 112/44 (66) 94 05/27/20 16:00 Venturi Mask 15.0 05/27/20 16:00 14.0 55 05/27/20 15:38 68 Intake and Output 05/27/20 05/28/20 19:00 07:00 Intake Total 75 ml Balance 75 ml Intake Oral 75 ml # Voids 1 # Bowel Movements 6 Objective HEAD AND NECK: Positive JVD. LUNGS: Decreased breath sounds. CARDIOVASCULAR: Regular S1 and S2 with no gallop. ABDOMEN: Obese. EXTREMITIES: Bilateral 2+ pitting edema. Cameron Davies MD May 28, 2020 12:22
--- NOTE | 2020-05-28 13:35 | Pulmonology Progress Note ---
Subjective ROS Limited/Unobtainable: Yes Interval Events: PICC line, transfusion today Constitutional: Denies: fever HEENT: Repors: no symptoms Respiratory: Reports: no symptoms Cardiovascular: Reports: no symptoms Gastrointestinal/Abdominal: Reports: no symptoms Genitourinary: Reports: no symptoms Allergies: Coded Allergies: LITHIUM (Verified Allergy, Unknown, 02/07/19) Objective Last 24 Hour Vital Signs Date Time Temp Pulse Resp B/P (MAP) Pulse Ox O2 Delivery O2 Flow Rate FiO2 05/28/20 12:00 14.0 55 05/28/20 12:00 Venturi Mask 15.0 05/28/20 12:00 97.9 72 20 111/51 (71) 100 05/28/20 11:43 64 05/28/20 08:00 14.0 55 05/28/20 08:00 Venturi Mask 15.0 05/28/20 08:00 97.6 69 20 122/41 (68) 100 05/28/20 07:48 61 05/28/20 04:00 Venturi Mask 15.0 05/28/20 04:00 14.0 55 05/28/20 04:00 63 05/28/20 04:00 97.3 64 20 104/42 (62) 100 05/28/20 00:00 Venturi Mask 15.0 05/28/20 00:00 97.3 77 20 114/48 (70) 94 05/27/20 20:00 88 05/27/20 20:00 97.5 72 20 103/57 (72) 95 05/27/20 20:00 Venturi Mask 15.0 05/27/20 20:00 14.0 55 05/27/20 19:36 100 Venturi Mask 14.0 55 05/27/20 16:00 97.7 67 21 112/44 (66) 94 05/27/20 16:00 Venturi Mask 15.0 05/27/20 16:00 14.0 55 05/27/20 15:38 68 Intake and Output 05/27/20 05/28/20 19:00 07:00 Intake Total 75 ml Balance 75 ml Intake Oral 75 ml # Voids 1 # Bowel Movements 6 Objective 05/28/2020 in SDU; currently on Venturi mask 14L FiO2 14L saturating well 05/27/2020 in SDU; s/p failed attempt at switching to NC due to patient noncompliance; currently saturating low-mid 90s when she is actually on Venturi mask 14L 05/26/2020 in SDU; keeps taking off her NRB and desats to 79-80% 05/24/2020 in ICUD; restless, saturating ok with NC 05/19/2020 Pt in ICU; full code General Appearance: no acute distress HEENT: normocephalic Respiratory: no respiratory distress, decreased breath sounds Cardiovascular: normal rate Abdomen: soft, non tender, other - obese, NG tube Extremities: other - b/l 2+ pitting edema Neurologic: disoriented Current Medications Medications (Trade) Dose Ordered Sig/Angie Route PRN Reason Start Time Stop Time Status Last Admin Dose Admin Acetaminophen (Tylenol) 650 mg Q6H PRN NG Fever >100.5 05/14/20 21:00 06/13/20 20:59 05/14/20 21:10 Acetaminophen (Tylenol) 650 mg Q6H PRN NG Mild Pain (Pain Scale 1-3) 05/14/20 21:00 06/13/20 20:59 05/17/20 11:06 Clonidine HCl (Catapres Tab) 0.1 mg Q4H PRN ORAL sbp>170 05/11/20 17:15 08/09/20 17:14 Docusate Sodium (Colace) 100 mg TWICE A DAY ORAL 05/25/20 18:00 06/24/20 17:59 05/27/20 18:13 Haloperidol Lactate (Haldol) 5 mg Q6H PRN IM Agitation 05/13/20 20:45 06/27/20 20:44 05/28/20 02:40 Heparin Sodium (Porcine) (Heparin 5000 units/ml) 5,000 units EVERY 12 HOURS SUBQ 05/25/20 21:00 07/09/20 20:59 05/27/20 08:14 Heparin Sodium/ Sodium Chloride (Heparin 1000 units/500ml Premix) 1,000 unit ONCE INJ 05/28/20 10:00 05/28/20 23:59 Levothyroxine Sodium (Synthroid) 50 mcg DAILY@0630 ORAL 05/14/20 06:30 06/13/20 06:29 05/28/20 05:56 Lidocaine HCl (Xylocaine 1% 30ml) 30 ml ONCE INJ 05/28/20 10:00 05/28/20 23:59 Pantoprazole (Protonix) 40 mg Q12HR ORAL 05/26/20 21:00 06/25/20 20:59 05/28/20 08:19 Polyethylene Glycol (Miralax) 17 gm BEDTIME ORAL 05/25/20 21:00 06/24/20 20:59 05/26/20 20:57 Quetiapine Fumarate (SEROqueL) 50 mg Q12HR ORAL 05/24/20 21:00 07/08/20 20:59 05/28/20 08:19 Assessment/Plan Assessment/Plan 1. Bilateral COVID-19 multilobar pneumonia. - s/p ETT - Afebrile - s/p Azithromycin, Ceftriaxone, dexamethasone - s/p remdesivir 2. Hx of COPD. 3. Schizophrenia/psychosis - On haloperidol per Dr. Hernandez 4. Hypoxia. - on Venturi mask, desats to 79-80% when she contantly takes her mask off, s/p self extubation - s/p 5 lpm NC; pt noncompliance - keep her on venturi mask, while maintaining good seal around the mask 5. Anemia - due for pRBC today 6. Azotemia/renal failure - UA: Positive leuk esterase, protein, RBC, WBC (05/11/2020) - BUN 32 -> 39 -> 34 -> 25 DVT ppx The care for this patient was discussed with my supervising physician Time spent for this case was 31 minutes The patient was seen and examined at bedside and all new and available data was reviewed in the patients chart. I agree with the above findings, impression, and plan. (Patient was seen earlier today. Signature timestamp does not reflect patient encounter time) Trae Arriaga MD May 28, 2020 13:35 Sincere Myers MD May 28, 2020 17:35
--- NOTE | 2020-05-28 13:53 | Brief Operative Note ---
Immediate Post Operative Note Operative Note Pre-op Diagnosis: needs IV access Procedure: PICC Post-op Diagnosis: same as pre-op Anesthesia: local Specimen: none Complications: none Fluids: none Implant(s) used?: No Porfirio Tijerina MD May 28, 2020 13:53
--- NOTE | 2020-05-28 14:00 | Diagnostic Imaging Report ---
Indications: Needs long-term IV access Technique: Procedure performed at bedside. Procedural timeout performed. Ultrasound confirms patent compressible left brachial vein. Total sterile technique, including sterile probe cover and sterile gel, sterile gloves, hand hygiene, hat, mask,, sterile gown, large sterile drape, and preparation with 2% chlorhexidine utilized. Local anesthesia with 1% lidocaine. Under real-time ultrasound guidance, puncture brachial vein using 21-gauge needle, passage 0.018 guidewire, exchange for 4 Israeli peel-away sheath. 4 Israeli Bard dual-lumen power PICC cut to 426 cm. It was inserted through the peel-away sheath. Peel-away sheath and guidewire removed. Catheter fixed to the skin. Both catheter ports aspirated and flushed. Patient tolerated procedure well, without immediate complication. Followup chest x-ray obtained, documents catheter tip position at the innominate venous confluence Impression: Successful bedside placement of left arm PICC under sonographic guidance, as described above.
--- NOTE | 2020-05-28 15:13 | Surgery Progress Note ---
Surgery Progress Note Subjective Symptoms: improved, tolerating diet, passing flatus, BM Objective Last 24 Hour Vital Signs Date Time Temp Pulse Resp B/P (MAP) Pulse Ox O2 Delivery O2 Flow Rate FiO2 05/28/20 12:00 14.0 55 05/28/20 12:00 Venturi Mask 15.0 05/28/20 12:00 97.9 72 20 111/51 (71) 100 05/28/20 11:43 64 05/28/20 08:00 14.0 55 05/28/20 08:00 Venturi Mask 15.0 05/28/20 08:00 97.6 69 20 122/41 (68) 100 05/28/20 07:48 61 05/28/20 04:00 Venturi Mask 15.0 05/28/20 04:00 14.0 55 05/28/20 04:00 63 05/28/20 04:00 97.3 64 20 104/42 (62) 100 05/28/20 00:00 Venturi Mask 15.0 05/28/20 00:00 97.3 77 20 114/48 (70) 94 05/27/20 20:00 88 05/27/20 20:00 97.5 72 20 103/57 (72) 95 05/27/20 20:00 Venturi Mask 15.0 05/27/20 20:00 14.0 55 05/27/20 19:36 100 Venturi Mask 14.0 55 05/27/20 16:00 97.7 67 21 112/44 (66) 94 05/27/20 16:00 Venturi Mask 15.0 05/27/20 16:00 14.0 55 05/27/20 15:38 68 I&O Intake and Output 05/27/20 05/28/20 19:00 07:00 Intake Total 75 ml Balance 75 ml Intake Oral 75 ml # Voids 1 # Bowel Movements 6 Dressing: saturated Cardiovascular: RSR Respiratory: decreased breath sounds Abdomen: non-tender, present bowel sounds Extremities: no edema, no tenderness, no cyanosis Plan Problems: (1) Anemia (2) Hypercapnic respiratory failure Assessment & Plan: respiratory insufficiency requiring prolonged ventilatory support unable to wean vent safely after multiple attempts discussed with pcp. discussed with pulm discussed with patient guardian. patient unable to consent. no nok or poa. given critical care and condition not recommended to await court decision which during pandemic can take long time. medically necessary to proceed with trach in patients best interest. 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
--- NOTE | 2020-05-28 18:07 | Nephrology Progress Note ---
Assessment/Plan Problem List: (1) Renal failure (ARF), acute on chronic (2) Hypercapnic respiratory failure (3) CHF exacerbation (4) Anemia Assessment Azotemia/renal failure Acute respiratory failure most likely secondary to CHF, on mechanical ventilation History of COPD Hypertension Hyperlipemia Schizophrenia/psychosis Plan May 28: Patient was not transfused despite of my order since yesterday. 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 Patient remains stable from renal standpoint of view. Continue per consultants. Discussed with Marlene nursing charge in [place]. May 27: Remains on Venturi mask. Labs reviewed. Abnormal electrolytes addressed. Hemoglobin low. Will transfuse 1 unit of packed RBCs today May 26: On Venturi mask. Labs reviewed. Abnormal electrolytes addressed. Continue per consultants and pulmonary support. May 25: On Venturi mask. Lethargic. No labs drawn today. Will monitor renal parameters. Per orders. May 24: Remains extubated. Will start on diet with high alert for possible aspiration. Continue to monitor renal parameters. May 23: Continues to be extubated. On nonrebreathing mask. Labs reviewed. Renal parameters stable. Discussed with RN. Continue per current management. May 22: Now extubated on nonrebreathing mask. Labs reviewed. Renal parameters stable. Abnormal electrolytes addressed. Discussed with RN. May 21: Remains intubated. Labs reviewed. Abnormal electrolytes addressed. Discussed with RN. May 20: Remains intubated. Abnormal electrolyte noted on today's lab resu lts and addressed. Continue per consultants. May 19: Patient remains intubated. Labs reviewed. Abnormal electrolytes addressed. Continue per current management. May 18: Patient seen in ICU. Remains intubated. Weaning is being tried. Discussed with RN. Labs reviewed. Abnormal electrolyte addressed. Continue per consultants. May 17: Labs reviewed. Remains intubated. Stable from renal standpoint of view. Continue weaning. Discussed with RN. May 16: Labs reviewed. Remains intubated. Remains full code. Stable from renal standpoint of view. Abnormal electrolytes addressed. May 15: Labs reviewed. Renal parameters stable. Discussed with RN. Patient remains intubated on ventilator and full code. Continue per consultants. May 14: Labs reviewed. Discussed with RN. Abnormal electrolyte addressed. Continue per current management. Patient seen in ICU. Discussed with RN. Today's labs pending. Patient remains on 6 mics of dopamine. Pulmonary support Monitor intake and output Monitor electrolytes Continue per consultants Per orders Subjective ROS Limited/Unobtainable: No Constitutional: Reports: malaise, weakness Objective Objective Last 24 Hour Vital Signs Date Time Temp Pulse Resp B/P (MAP) Pulse Ox O2 Delivery O2 Flow Rate FiO2 05/28/20 16:00 Venturi Mask 15.0 05/28/20 16:00 98.1 71 18 115/52 (73) 100 05/28/20 16:00 14.0 55 05/28/20 15:12 64 05/28/20 12:00 14.0 55 05/28/20 12:00 Venturi Mask 15.0 05/28/20 12:00 97.9 72 20 111/51 (71) 100 05/28/20 11:43 64 05/28/20 08:00 14.0 55 05/28/20 08:00 Venturi Mask 15.0 05/28/20 08:00 97.6 69 20 122/41 (68) 100 05/28/20 07:48 61 05/28/20 04:00 Venturi Mask 15.0 05/28/20 04:00 14.0 55 05/28/20 04:00 63 05/28/20 04:00 97.3 64 20 104/42 (62) 100 05/28/20 00:00 Venturi Mask 15.0 05/28/20 00:00 97.3 77 20 114/48 (70) 94 05/27/20 20:00 88 05/27/20 20:00 97.5 72 20 103/57 (72) 95 05/27/20 20:00 Venturi Mask 15.0 05/27/20 20:00 14.0 55 05/27/20 19:36 100 Venturi Mask 14.0 55 Intake and Output 05/27/20 05/28/20 19:00 07:00 Intake Total 75 ml Balance 75 ml Intake Oral 75 ml # Voids 1 # Bowel Movements 6 No labs drawn today Height (Feet): 5 Height (Inches): 3.00 Weight (Pounds): 183 General Appearance: no apparent distress, lethargic EENT: other - On Venturi mask Cardiovascular: normal rate Respiratory/Chest: decreased breath sounds Abdomen: distended Bryan Ochoa MD May 28, 2020 18:07
[2020-05-28] MEDS ORDERED: Tubing IV Secondary IV ONE (19:27)
[2020-05-28] MEDS ORDERED: Tubing Blood Filter IV ONE (19:27)
--- NOTE | 2020-05-28 19:28 | Psychiatric Progress Note ---
Psychiatry Progress Note Psychiatry Progress Note Subjective the pt has waxing and waning o consciousness on restraints episodes agitation the same confused Medications Current Medications Medications (Trade) Dose Ordered Sig/Angie Route PRN Reason Start Time Stop Time Status Last Admin Dose Admin Acetaminophen (Tylenol) 650 mg Q6H PRN NG Fever >100.5 05/14/20 21:00 06/13/20 20:59 05/14/20 21:10 Acetaminophen (Tylenol) 650 mg Q6H PRN NG Mild Pain (Pain Scale 1-3) 05/14/20 21:00 06/13/20 20:59 05/17/20 11:06 Clonidine HCl (Catapres Tab) 0.1 mg Q4H PRN ORAL sbp>170 05/11/20 17:15 08/09/20 17:14 Docusate Sodium (Colace) 100 mg TWICE A DAY ORAL 05/25/20 18:00 06/24/20 17:59 05/27/20 18:13 Haloperidol Lactate (Haldol) 5 mg Q6H PRN IM Agitation 05/13/20 20:45 06/27/20 20:44 05/28/20 02:40 Heparin Sodium (Porcine) (Heparin 5000 units/ml) 5,000 units EVERY 12 HOURS SUBQ 05/25/20 21:00 07/09/20 20:59 05/27/20 08:14 Heparin Sodium/ Sodium Chloride (Heparin 1000 units/500ml Premix) 1,000 unit ONCE INJ 05/28/20 10:00 05/28/20 23:59 Levothyroxine Sodium (Synthroid) 50 mcg DAILY@0630 ORAL 05/14/20 06:30 06/13/20 06:29 05/28/20 05:56 Lidocaine HCl (Xylocaine 1% 30ml) 30 ml ONCE INJ 05/28/20 10:00 05/28/20 23:59 Pantoprazole (Protonix) 40 mg Q12HR ORAL 05/26/20 21:00 06/25/20 20:59 05/28/20 08:19 Polyethylene Glycol (Miralax) 17 gm BEDTIME ORAL 05/25/20 21:00 06/24/20 20:59 05/26/20 20:57 Quetiapine Fumarate (SEROqueL) 50 mg Q12HR ORAL 05/24/20 21:00 07/08/20 20:59 12/16/20 08:19 Neurological/Psychiatric: Reports: anxiety, depressed, emotional problems Allergies: Coded Allergies: LITHIUM (Verified Allergy, Unknown, 02/07/19) Objective Data Height (Feet): 5 Height (Inches): 3.00 Weight (Pounds): 183 General Appearance: no apparent distress, lethargic Additional Comments: waxing and waning consciousness. Disoriented. Mood is neutral to agitation. Affect is flat. Thought process, there is paucity of thought process. Thought content, no suicidal or homicidal ideation. Cognition is impaired. Insight and judgment is impaired. Assessment/Plan [place] I: Homewood I Acute toxic encephalopathy. Schizophrenia. [place] II Deferred. [place] III COVID-19. Homewood IV Low. [place]wood V 20 PLAN: 1. Discontinue the IV Haldol. 2. Start the patient on Haldol IM. 3. The patient benefits from bilateral soft restraints. 4. Provide the patient with reality orientation. 5. Discussed with the nurse. Status: progressing, unchanged Status Narrative [place] I Acute toxic encephalopathy. Schizophrenia. [place] II Deferred. Homewood III COVID-19. Homewood IV Low. [place] V 20 PLAN: 1. Discontinue the IV Haldol. 2. Start the patient on Haldol IM. 3. The patient benefits from bilateral soft restraints. 4. Provide the patient with reality orientation. 5. Discussed with the nurse. Assessment/Plan: [place] I Acute toxic encephalopathy. Schizophrenia. Homewood II Deferred. Homewood III COVID-19. Homewood IV Low. [place]wood V 20 PLAN: 1. Discontinue the IV Haldol. 2. Start the patient on Haldol IM. 3. The patient benefits from bilateral soft restraints. 4. Provide the patient with reality orientation. 5. Discussed with the nurse. Kiana Hernandez MD May 28, 2020 19:28
[2020-05-28] MEDS: Miralax 17gm pkt ORAL SCH (21:09)
--- NOTE | 2020-05-28 21:20 | General Progress Note ---
Subjective ROS Limited/Unobtainable: Yes Allergies: Coded Allergies: LITHIUM (Verified Allergy, Unknown, 02/07/19) Objective Last 24 Hour Vital Signs Date Time Temp Pulse Resp B/P (MAP) Pulse Ox O2 Delivery O2 Flow Rate FiO2 05/28/20 20:00 14.0 55 05/28/20 20:00 Venturi Mask 15.0 05/28/20 20:00 97.5 61 18 106/42 (63) 100 05/28/20 16:00 Venturi Mask 15.0 05/28/20 16:00 98.1 71 18 115/52 (73) 100 05/28/20 16:00 14.0 55 05/28/20 15:12 64 05/28/20 12:00 14.0 55 05/28/20 12:00 Venturi Mask 15.0 05/28/20 12:00 97.9 72 20 111/51 (71) 100 05/28/20 11:43 64 05/28/20 08:00 14.0 55 05/28/20 08:00 Venturi Mask 15.0 05/28/20 08:00 97.6 69 20 122/41 (68) 100 05/28/20 07:48 61 05/28/20 04:00 Venturi Mask 15.0 05/28/20 04:00 14.0 55 05/28/20 04:00 63 05/28/20 04:00 97.3 64 20 104/42 (62) 100 05/28/20 00:00 Venturi Mask 15.0 05/28/20 00:00 97.3 77 20 114/48 (70) 94 Intake and Output 05/27/20 05/28/20 19:00 07:00 Intake Total 75 ml Balance 75 ml Intake Oral 75 ml # Voids 1 # Bowel Movements 6 Height (Feet): 5 Height (Inches): 3.00 Weight (Pounds): 183 Assessment/Plan Problem List: (1) Anemia ICD Codes: D64.9 - Anemia, unspecified SNOMED: 219879496 (2) Hypercapnic respiratory failure ICD Codes: J96.92 - Respiratory failure, unspecified with hypercapnia SNOMED: 928598467 (3) COVID-19 ICD Codes: U07.1 - COVID-19 SNOMED: 333140811 (4) COPD (chronic obstructive pulmonary disease) ICD Codes: J44.9 - Chronic obstructive pulmonary disease, unspecified SNOMED: 57394785 (5) Psychosis ICD Codes: F29 - Unspecified psychosis not due to a substance or known physiological condition SNOMED: 39467802 (6) Hypoxia ICD Codes: R09.02 - Hypoxemia SNOMED: 534526049 (7) Renal failure (ARF), acute on chronic ICD Codes: N17.9 - Acute kidney failure, unspecified; N18.9 - Chronic kidney disease, unspecified SNOMED: 137017841 (8) CHF exacerbation ICD Codes: I50.9 - Heart failure, unspecified SNOMED: 791231422, 70572350236861 Status: progressing, unchanged Assessment/Plan: reviewed chart and labs lethargic high oxygen covid positive pna sepsis copd exac chf exac Dani Perera MD May 28, 2020 21:20
--- NOTE | 2020-05-28 22:54 | General Progress Note ---
Subjective Allergies: Coded Allergies: LITHIUM (Verified Allergy, Unknown, 02/07/19) Subjective above noted resting with FM s/p transfusion Objective Last 24 Hour Vital Signs Date Time Temp Pulse Resp B/P (MAP) Pulse Ox O2 Delivery O2 Flow Rate FiO2 05/28/20 20:00 14.0 55 05/28/20 20:00 Venturi Mask 15.0 05/28/20 20:00 97.5 61 18 106/42 (63) 100 05/28/20 16:00 Venturi Mask 15.0 05/28/20 16:00 98.1 71 18 115/52 (73) 100 05/28/20 16:00 14.0 55 05/28/20 15:12 64 05/28/20 12:00 14.0 55 05/28/20 12:00 Venturi Mask 15.0 05/28/20 12:00 97.9 72 20 111/51 (71) 100 05/28/20 11:43 64 05/28/20 08:00 14.0 55 05/28/20 08:00 Venturi Mask 15.0 05/28/20 08:00 97.6 69 20 122/41 (68) 100 05/28/20 07:48 61 05/28/20 04:00 Venturi Mask 15.0 05/28/20 04:00 14.0 55 05/28/20 04:00 63 05/28/20 04:00 97.3 64 20 104/42 (62) 100 05/28/20 00:00 Venturi Mask 15.0 05/28/20 00:00 97.3 77 20 114/48 (70) 94 Intake and Output 05/27/20 05/28/20 19:00 07:00 Intake Total 75 ml Balance 75 ml Intake Oral 75 ml # Voids 1 # Bowel Movements 6 Height (Feet): 5 Height (Inches): 3.00 Weight (Pounds): 183 Objective WDWN WW more calm today (+) FM O2 exam limited due to COVID isolation Assessment/Plan Status: progressing, unchanged Assessment/Plan: Assessment/Plan (1) Hypertension (2) Schizophrenia (3) Hyperlipidemia (4) Parkinson disease (5) Anemia (6) Obese (7) COVID (+) (8) Hypoxia Recommendations PPI BID Follow H&H Transfuse to keep Hg>7.0 po as tolerated GI procedures at a later date, if needed bowel regimen Aria Chicas MD May 28, 2020 22:54
[2020-05-29] VITALS: BP 102/41
[2020-05-29 04:00] VITALS: BP 110/46
[2020-05-29 05:21] LABS: HEMATOCRIT 19.6 % (37.0-47.0); MEAN CORPUSCULAR VOLUME 91 FL (80-99); PLATELET COUNT 137 K/UL (150-450); RED BLOOD COUNT 2.15 M/UL (4.20-5.40); RED CELL DISTRIBUTION WIDTH 15.3 % (11.6-14.8); WHITE BLOOD COUNT 3.9 K/UL (4.8-10.8)
[2020-05-29 05:51] LABS: ALANINE AMINOTRANSFERASE 12 U/L (12-78); ALBUMIN 2.3 G/DL (3.4-5.0); ALBUMIN/GLOBULIN RATIO 0.6 (1.0-2.7); ALKALINE PHOSPHATASE 40 U/L (46-116); ANION GAP 1 mmol/L (5-15); ASPARTATE AMINO TRANSFERASE 15 U/L (15-37); BILIRUBIN,TOTAL 0.6 MG/DL (0.2-1.0); BLOOD UREA NITROGEN 13 mg/dL (7-18); CALCIUM 7.3 MG/DL (8.5-10.1); CARBON DIOXIDE 33 MMOL/L (21-32); CHLORIDE 109 MMOL/L (98-107); CREATININE 0.8 MG/DL (0.55-1.30); PHOSPHORUS 2.4 MG/DL (2.5-4.9); POTASSIUM 3.1 MMOL/L (3.5-5.1); SODIUM 143 MMOL/L (136-145)
[2020-05-29 06:25] LABS: HEMOGLOBIN 6.9 G/DL (12.0-16.0)
[2020-05-29 08:00] VITALS: BP 116/52
--- NOTE | 2020-05-29 08:21 | Infectious Diseases Prog Note ---
Assessment/Plan Assessment/Plan IMPRESSION: COVID-19 disease, Acute respiratory failure, COPD, Diastolic CHF, Mitral valve regurgitation, Anemia, Parkinson disease, schizoaffective disorder, Dementia, Obstructive sleep apnea, Hypothyroidism. 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 RECOMMENDATION: Finished dexamethasone & Remdesivir course Observe off of antibiotic Subjective ROS Limited/Unobtainable: Yes Cardiovascular: Reports: other - had PICC line placement yesterday Neurologic: Reports: confusion, other - on restraint Allergies: Coded Allergies: LITHIUM (Verified Allergy, Unknown, 02/07/19) Objective Last 24 Hour Vital Signs Date Time Temp Pulse Resp B/P (MAP) Pulse Ox O2 Delivery O2 Flow Rate FiO2 05/29/20 04:00 97.5 68 18 110/46 (67) 100 05/29/20 04:00 Venturi Mask 15.0 05/29/20 04:00 14.0 55 05/29/20 03:16 63 05/29/20 00:00 14.0 55 05/29/20 00:00 Venturi Mask 15.0 05/29/20 00:00 97.6 66 18 102/41 (61) 100 05/28/20 23:02 63 05/28/20 20:00 14.0 55 05/28/20 20:00 Venturi Mask 15.0 05/28/20 20:00 97.5 61 18 106/42 (63) 100 05/28/20 19:56 59 05/28/20 19:52 98 Venturi Mask 14.0 55 05/28/20 16:00 Venturi Mask 15.0 05/28/20 16:00 98.1 71 18 115/52 (73) 100 05/28/20 16:00 14.0 55 05/28/20 15:12 64 05/28/20 12:00 14.0 55 05/28/20 12:00 Venturi Mask 15.0 05/28/20 12:00 97.9 72 20 111/51 (71) 100 05/28/20 11:43 64 Height (Feet): 5 Height (Inches): 3.00 Weight (Pounds): 183 HEENT: mucous membranes moist Respiratory/Chest: other - oxygen by mask Cardiovascular: normal rate, other - left arm PICC line Abdomen: soft, non tender Extremities: no edema Neurologic/Psychiatric: alert, responsive, disoriented Laboratory Tests Test 12/17/20 03:50 White Blood Count 3.9 K/UL (4.8-10.8) L Red Blood Count 2.15 M/UL (4.20-5.40) L Hemoglobin 6.9 G/DL (12.0-16.0) *L Hematocrit 19.6 % (37.0-47.0) L Mean Corpuscular Volume 91 FL (80-99) Mean Corpuscular Hemoglobin 32.0 PG (27.0-31.0) H Mean Corpuscular Hemoglobin Concent 35.1 G/DL (32.0-36.0) Red Cell Distribution Width 15.3 % (11.6-14.8) H Platelet Count 137 K/UL (150-450) L Mean Platelet Volume 8.1 FL (6.5-10.1) Neutrophils (%) (Auto) % (45.0-75.0) Lymphocytes (%) (Auto) % (20.0-45.0) Monocytes (%) (Auto) % (1.0-10.0) Eosinophils (%) (Auto) % (0.0-3.0) Basophils (%) (Auto) % (0.0-2.0) Neutrophils % (Manual) Pending Lymphocytes % (Manual) Pending Platelet Estimate Pending Platelet Morphology Pending Sodium Level 143 MMOL/L (136-145) Potassium Level 3.1 MMOL/L (3.5-5.1) L Chloride Level 109 MMOL/L (98-107) H Carbon Dioxide Level 33 MMOL/L (21-32) H Anion Gap 1 mmol/L (5-15) L Blood Urea Nitrogen 13 mg/dL (7-18) Creatinine 0.8 MG/DL (0.55-1.30) Estimat Glomerular Filtration Rate > 60 mL/min (>60) Glucose Level 88 MG/DL (74-106) Calcium Level 7.3 MG/DL (8.5-10.1) L Phosphorus Level 2.4 MG/DL (2.5-4.9) L Magnesium Level 1.9 MG/DL (1.8-2.4) Total Bilirubin 0.6 MG/DL (0.2-1.0) Aspartate Amino Transf (AST/SGOT) 15 U/L (15-37) Alanine Aminotransferase (ALT/SGPT) 12 U/L (12-78) Alkaline Phosphatase 40 U/L (46-116) L Total Protein 6.1 G/DL (6.4-8.2) L Albumin 2.3 G/DL (3.4-5.0) L Globulin 3.8 g/dL Albumin/Globulin Ratio 0.6 (1.0-2.7) L Current Medications Medications (Trade) Dose Ordered Sig/Angie Route PRN Reason Start Time Stop Time Status Last Admin Dose Admin Acetaminophen (Tylenol) 650 mg Q6H PRN NG Fever >100.5 05/14/20 21:00 06/13/20 20:59 05/14/20 21:10 Acetaminophen (Tylenol) 650 mg Q6H PRN NG Mild Pain (Pain Scale 1-3) 05/14/20 21:00 06/13/20 20:59 05/17/20 11:06 Clonidine HCl (Catapres Tab) 0.1 mg Q4H PRN ORAL sbp>170 05/11/20 17:15 08/09/20 17:14 Docusate Sodium (Colace) 100 mg TWICE A DAY ORAL 05/25/20 18:00 06/24/20 17:59 05/27/20 18:13 Haloperidol Lactate (Haldol) 5 mg Q6H PRN IM Agitation 05/13/20 20:45 06/27/20 20:44 05/28/20 02:40 Heparin Sodium (Porcine) (Heparin 5000 units/ml) 5,000 units EVERY 12 HOURS SUBQ 05/25/20 21:00 07/09/20 20:59 05/28/20 21:09 Levothyroxine Sodium (Synthroid) 50 mcg DAILY@0630 ORAL 05/14/20 06:30 06/13/20 06:29 05/29/20 06:31 Pantoprazole (Protonix) 40 mg Q12HR ORAL 05/26/20 21:00 06/25/20 20:59 05/28/20 21:09 Polyethylene Glycol (Miralax) 17 gm BEDTIME ORAL 05/25/20 21:00 06/24/20 20:59 05/28/20 21:09 Quetiapine Fumarate (SEROqueL) 50 mg Q12HR ORAL 05/24/20 21:00 07/08/20 20:59 12/16/20 21:09 Lei Chan MD May 29, 2020 08:20
[2020-05-29] MEDS: Heparin 5000 units/ml inj SUBQ SCH ×2 (09:00→20:55)
[2020-05-29] MEDS: Docusate 100mg cap ORAL SCH ×2 (09:15→18:00)
[2020-05-29 12:00] VITALS: BP 110/56
--- NOTE | 2020-05-29 12:42 | Pulmonology Progress Note ---
Subjective ROS Limited/Unobtainable: Yes Interval Events: another transfusion today; pt self removed PICC line yesterday Constitutional: Denies: fever HEENT: Repors: no symptoms Respiratory: Reports: no symptoms Cardiovascular: Reports: no symptoms Gastrointestinal/Abdominal: Reports: no symptoms Genitourinary: Reports: no symptoms Allergies: Coded Allergies: LITHIUM (Verified Allergy, Unknown, 02/07/19) Objective Last 24 Hour Vital Signs Date Time Temp Pulse Resp B/P (MAP) Pulse Ox O2 Delivery O2 Flow Rate FiO2 05/29/20 12:00 Nasal Cannula 2.0 05/29/20 12:00 65 05/29/20 12:00 2.0 05/29/20 12:00 98.1 64 18 110/56 (74) 97 05/29/20 08:00 98.1 64 17 116/52 (73) 97 05/29/20 08:00 2.0 05/29/20 08:00 Nasal Cannula 2.0 05/29/20 08:00 65 05/29/20 04:00 97.5 68 18 110/46 (67) 100 05/29/20 04:00 Venturi Mask 15.0 05/29/20 04:00 14.0 55 05/29/20 03:16 63 05/29/20 00:00 14.0 55 05/29/20 00:00 Venturi Mask 15.0 05/29/20 00:00 97.6 66 18 102/41 (61) 100 05/28/20 23:02 63 05/28/20 20:00 14.0 55 05/28/20 20:00 Venturi Mask 15.0 05/28/20 20:00 97.5 61 18 106/42 (63) 100 05/28/20 19:56 59 05/28/20 19:52 98 Venturi Mask 14.0 55 05/28/20 16:00 Venturi Mask 15.0 05/28/20 16:00 98.1 71 18 115/52 (73) 100 05/28/20 16:00 14.0 55 05/28/20 15:12 64 Intake and Output 05/28/20 05/29/20 19:00 07:00 Intake Total 100 ml Balance 100 ml Intake Oral 100 ml # Voids 3 1 Objective 05/29/2020 now on 2 lpm NC saturating at 97%; in transfusion 05/28/2020 in SDU; currently on Venturi mask 14L FiO2 14L saturating well 05/27/2020 in SDU; s/p failed attempt at switching to NC due to patient noncompliance; currently saturating low-mid 90s when she is actually on Venturi mask 14L 05/26/2020 in SDU; keeps taking off her NRB and desats to 79-80% 05/24/2020 in ICUD; restless, saturating ok with NC 05/19/2020 Pt in ICU; full code General Appearance: no acute distress HEENT: normocephalic Respiratory: no respiratory distress, decreased breath sounds Cardiovascular: normal rate Abdomen: soft, non tender, other - obese, NG tube Extremities: other - b/l 2+ pitting edema Neurologic: disoriented Laboratory Tests 05/29/20 03:50: White Blood Count 3.9L, Red Blood Count 2.15L, Hemoglobin 6.9*L, Hematocrit 19.6L, Mean Corpuscular Volume 91, Mean Corpuscular Hemoglobin 32.0H, Mean Corpuscular Hemoglobin Concent 35.1, Red Cell Distribution Width 15.3H, Platelet Count 137L, Mean Platelet Volume 8.1, Neutrophils (%) (Auto) , Lymphocytes (%) (Auto) , Monocytes (%) (Auto) , Eosinophils (%) (Auto) , Basophils (%) (Auto) , Differential Total Cells Counted 100, Neutrophils % (Manual) 71, Lymphocytes % (Manual) 25, Monocytes % (Manual) 4, Eosinophils % (Manual) 0, Basophils % (Manual) 0, Band Neutrophils 0, Platelet Estimate DecreasedL, Platelet Morphology Normal, Hypochromasia 3+, Anisocytosis 1+, Sodium Level 143, Potassium Level 3.1L, Chloride Level 109H, Carbon Dioxide Level 33H, Anion Gap 1L, Blood Urea Nitrogen 13, Creatinine 0.8, Estimat Glomerular Filtration Rate > 60, Glucose Level 88, Calcium Level 7.3L, Phosphorus Level 2.4L, Magnesium Level 1.9, Total Bilirubin 0.6, Aspartate Amino Transf (AST/SGOT) 15, Alanine A minotransferase (ALT/SGPT) 12, Alkaline Phosphatase 40L, Total Protein 6.1L, Albumin 2.3L, Globulin 3.8, Albumin/Globulin Ratio 0.6L Current Medications Medications (Trade) Dose Ordered Sig/Angie Route PRN Reason Start Time Stop Time Status Last Admin Dose Admin Acetaminophen (Tylenol) 650 mg Q6H PRN NG Fever >100.5 05/14/20 21:00 06/13/20 20:59 05/14/20 21:10 Acetaminophen (Tylenol) 650 mg Q6H PRN NG Mild Pain (Pain Scale 1-3) 05/14/20 21:00 06/13/20 20:59 05/17/20 11:06 Clonidine HCl (Catapres Tab) 0.1 mg Q4H PRN ORAL sbp>170 05/11/20 17:15 08/09/20 17:14 Docusate Sodium (Colace) 100 mg TWICE A DAY ORAL 05/25/20 18:00 06/24/20 17:59 05/29/20 09:15 Haloperidol Lactate (Haldol) 5 mg Q6H PRN IM Agitation 05/13/20 20:45 06/27/20 20:44 05/28/20 02:40 Heparin Sodium (Porcine) (Heparin 5000 units/ml) 5,000 units EVERY 12 HOURS SUBQ 05/25/20 21:00 07/09/20 20:59 05/28/20 21:09 Levothyroxine Sodium (Synthroid) 50 mcg DAILY@0630 ORAL 05/14/20 06:30 06/13/20 06:29 05/29/20 06:31 Pantoprazole (Protonix) 40 mg Q12HR ORAL 05/26/20 21:00 06/25/20 20:59 05/29/20 09:21 Polyethylene Glycol (Miralax) 17 gm BEDTIME ORAL 05/25/20 21:00 06/24/20 20:59 05/28/20 21:09 Potassium Chloride (K-Dur) 40 meq TWICE A DAY ORAL 05/29/20 10:30 08/27/20 10:29 Quetiapine Fumarate (SEROqueL) 50 mg Q12HR ORAL 05/24/20 21:00 07/08/20 20:59 05/29/20 09:21 Assessment/Plan Assessment/Plan Assessment/Plan 1. Bilateral COVID-19 multilobar pneumonia. - s/p ETT - Afebrile - s/p Azithromycin, Ceftriaxone, dexamethasone - s/p remdesivir 2. Hx of COPD. 3. Schizophrenia/psychosis - On haloperidol per Dr. Hernandez 4. Hypoxia. - s/p self extubation - currently receiving 2 lpm NC saturating at 97% - continue supplemental oxygen while keeping saO2 >92% 5. Anemia - due for another pRBC today due to incomplete transfusion yesterday related to pt noncompliance - per heme 6. Azotemia/renal failure - UA: Positive leuk esterase, protein, RBC, WBC (05/11/2020) - BUN 32 -> 39 -> 34 -> 25 DVT ppx The care for this patient was discussed with my supervising physician Time spent for this case was 31 minutes Trae Avilez May 29, 2020 12:42
--- NOTE | 2020-05-29 14:47 | Surgery Progress Note ---
Surgery Progress Note Subjective Additional Comments picc line in no n/v labs noted exam stable and improved Objective Last 24 Hour Vital Signs Date Time Temp Pulse Resp B/P (MAP) Pulse Ox O2 Delivery O2 Flow Rate FiO2 05/29/20 12:00 Nasal Cannula 2.0 05/29/20 12:00 65 05/29/20 12:00 2.0 05/29/20 12:00 98.1 64 18 110/56 (74) 97 05/29/20 08:00 98.1 64 17 116/52 (73) 97 05/29/20 08:00 2.0 05/29/20 08:00 Nasal Cannula 2.0 05/29/20 08:00 65 05/29/20 04:00 97.5 68 18 110/46 (67) 100 05/29/20 04:00 Venturi Mask 15.0 05/29/20 04:00 14.0 55 05/29/20 03:16 63 05/29/20 00:00 14.0 55 05/29/20 00:00 Venturi Mask 15.0 05/29/20 00:00 97.6 66 18 102/41 (61) 100 05/28/20 23:02 63 05/28/20 20:00 14.0 55 05/28/20 20:00 Venturi Mask 15.0 05/28/20 20:00 97.5 61 18 106/42 (63) 100 05/28/20 19:56 59 05/28/20 19:52 98 Venturi Mask 14.0 55 05/28/20 16:00 Venturi Mask 15.0 05/28/20 16:00 98.1 71 18 115/52 (73) 100 05/28/20 16:00 14.0 55 05/28/20 15:12 64 I&O Intake and Output 05/28/20 05/29/20 19:00 07:00 Intake Total 100 ml Balance 100 ml Intake Oral 100 ml # Voids 3 1 Dressing: saturated Cardiovascular: RSR Respiratory: decreased breath sounds Abdomen: non-tender, present bowel sounds, non-distended Extremities: no edema, no tenderness, no cyanosis Laboratory Tests Test 05/29/20 03:50 White Blood Count 3.9 K/UL (4.8-10.8) L Red Blood Count 2.15 M/UL (4.20-5.40) L Hemoglobin 6.9 G/DL (12.0-16.0) *L Hematocrit 19.6 % (37.0-47.0) L Mean Corpuscular Volume 91 FL (80-99) Mean Corpuscular Hemoglobin 32.0 PG (27.0-31.0) H Mean Corpuscular Hemoglobin Concent 35.1 G/DL (32.0-36.0) Red Cell Distribution Width 15.3 % (11.6-14.8) H Platelet Count 137 K/UL (150-450) L Mean Platelet Volume 8.1 FL (6.5-10.1) Neutrophils (%) (Auto) % (45.0-75.0) Lymphocytes (%) (Auto) % (20.0-45.0) Monocytes (%) (Auto) % (1.0-10.0) Eosinophils (%) (Auto) % (0.0-3.0) Basophils (%) (Auto) % (0.0-2.0) Differential Total Cells Counted 100 Neutrophils % (Manual) 71 % (45-75) Lymphocytes % (Manual) 25 % (20-45) Monocytes % (Manual) 4 % (1-10) Eosinophils % (Manual) 0 % (0-3) Basophils % (Manual) 0 % (0-2) Band Neutrophils 0 % (0-8) Platelet Estimate Decreased L Platelet Morphology Normal Hypochromasia 3+ Anisocytosis 1+ Sodium Level 143 MMOL/L (136-145) Potassium Level 3.1 MMOL/L (3.5-5.1) L Chloride Level 109 MMOL/L (98-107) H Carbon Dioxide Level 33 MMOL/L (21-32) H Anion Gap 1 mmol/L (5-15) L Blood Urea Nitrogen 13 mg/dL (7-18) Creatinine 0.8 MG/DL (0.55-1.30) Estimat Glomerular Filtration Rate > 60 mL/min (>60) Glucose Level 88 MG/DL (74-106) Calcium Level 7.3 MG/DL (8.5-10.1) L Phosphorus Level 2.4 MG/DL (2.5-4.9) L Magnesium Level 1.9 MG/DL (1.8-2.4) Total Bilirubin 0.6 MG/DL (0.2-1.0) Aspartate Amino Transf (AST/SGOT) 15 U/L (15-37) Alanine Aminotransferase (ALT/SGPT) 12 U/L (12-78) Alkaline Phosphatase 40 U/L (46-116) L Total Protein 6.1 G/DL (6.4-8.2) L Albumin 2.3 G/DL (3.4-5.0) L Globulin 3.8 g/dL Albumin/Globulin Ratio 0.6 (1.0-2.7) L Plan Problems: (1) Anemia (2) Hypercapnic respiratory failure Assessment & Plan: respiratory insufficiency requiring prolonged ventilatory support unable to wean vent safely after multiple attempts discussed with pcp. discussed with pulm discussed with patient guardian. patient unable to consent. no nok or poa. given critical care and condition not recommended to await court decision which during pandemic can take long time. medically necessary to proceed with trach in patients best interest. 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
--- NOTE | 2020-05-29 15:54 | Nephrology Progress Note ---
Assessment/Plan Problem List: (1) Renal failure (ARF), acute on chronic (2) Hypercapnic respiratory failure (3) CHF exacerbation (4) Anemia Assessment Azotemia/renal failure Acute respiratory failure most likely secondary to CHF, on mechanical ventilation History of COPD Hypertension Hyperlipemia Schizophrenia/psychosis Plan May 29: Lab reviewed. Patient anemic. Electrolyte abnormalities reviewed and addressed. Continue per consultants. Remains stable from renal standpoint of view. May 28: Patient was not transfused despite of my order since yesterday. Will defer transfusion to PMD/industrial relations representative. Patient remains stable from renal standpoint of view. Continue per consultants. Discussed with Marlene nursing charge in [place]. May 27: Remains on Venturi mask. Labs reviewed. Abnormal electrolytes addressed. Hemoglobin low. Will transfuse 1 unit of packed RBCs today May 26: On Venturi mask. Labs reviewed. Abnormal electrolytes addressed. Continue per consultants and pulmonary support. May 25: On Venturi mask. Lethargic. No labs drawn today. Will monitor renal parameters. Per orders. May 24: Remains extubated. Will start on diet with high alert for possible aspiration. Continue to monitor renal parameters. May 23: Continues to be extubated. On nonrebreathing mask. Labs reviewed. Renal parameters stable. Discussed with RN. Continue per current management. May 22: Now extubated on nonrebreathing mask. Labs reviewed. Renal parameters stable. Abnormal electrolytes addressed. Discussed with RN. May 21: Remains intubated. Labs reviewed. Abnormal electrolytes addressed. Discussed with RN. May 20: Remains intubated. Abnormal electrolyte noted on today's lab results and addressed. Continue per consultants. May 19: Patient remains intubated. Labs reviewed. Abnormal electrolytes addressed. Continue per current management. May 18: Patient seen in ICU. Remains intubated. Weaning is being tried. Discussed with RN. Labs reviewed. Abnormal electrolyte addressed. Continue per consultants. May 17: Labs reviewed. Remains intubated. Stable from renal standpoint of view. Continue weaning. Discussed with RN. May 16: Labs reviewed. Remains intubated. Remains full code. Stable from renal standpoint of view. Abnormal electrolytes addressed. May 15: Labs reviewed. Renal parameters stable. Discussed with RN. Patient remains intubated on ventilator and full code. Continue per consultants. May 14: Labs reviewed. Discussed with RN. Abnormal electrolyte addressed. Continue per current management. Patient seen in ICU. Discussed with RN. Today's labs pending. Patient remains on 6 mics of dopamine. Pulmonary support Monitor intake and output Monitor electrolytes Continue per consultants Per orders Subjective ROS Limited/Unobtainable: No Constitutional: Reports: malaise, weakness Objective Objective Last 24 Hour Vital Signs Date Time Temp Pulse Resp B/P (MAP) Pulse Ox O2 Delivery O2 Flow Rate FiO2 05/29/20 12:00 Nasal Cannula 2.0 05/29/20 12:00 65 05/29/20 12:00 2.0 05/29/20 12:00 98.1 64 18 110/56 (74) 97 05/29/20 08:00 98.1 64 17 116/52 (73) 97 05/29/20 08:00 2.0 05/29/20 08:00 Nasal Cannula 2.0 05/29/20 08:00 65 05/29/20 04:00 97.5 68 18 110/46 (67) 100 05/29/20 04:00 Venturi Mask 15.0 05/29/20 04:00 14.0 55 05/29/20 03:16 63 05/29/20 00:00 14.0 55 05/29/20 00:00 Venturi Mask 15.0 05/29/20 00:00 97.6 66 18 102/41 (61) 100 05/28/20 23:02 63 05/28/20 20:00 14.0 55 05/28/20 20:00 Venturi Mask 15.0 05/28/20 20:00 97.5 61 18 106/42 (63) 100 05/28/20 19:56 59 05/28/20 19:52 98 Venturi Mask 14.0 55 05/28/20 16:00 Venturi Mask 15.0 05/28/20 16:00 98.1 71 18 115/52 (73) 100 05/28/20 16:00 14.0 55 Intake and Output 05/28/20 05/29/20 19:00 07:00 Intake Total 100 ml Balance 100 ml Intake Oral 100 ml # Voids 3 1 Current Medications Medications (Trade) Dose Ordered Sig/Angie Route PRN Reason Start Time Stop Time Status Last Admin Dose Admin Acetaminophen (Tylenol) 650 mg Q6H PRN NG Fever >100.5 05/14/20 21:00 1/1/21 20:59 05/14/20 21:10 Acetaminophen (Tylenol) 650 mg Q6H PRN NG Mild Pain (Pain Scale 1-3) 05/14/20 21:00 06/13/20 20:59 05/17/20 11:06 Clonidine HCl (Catapres Tab) 0.1 mg Q4H PRN ORAL sbp>170 05/11/20 17:15 08/09/20 17:14 Docusate Sodium (Colace) 100 mg TWICE A DAY ORAL 05/25/20 18:00 06/24/20 17:59 05/29/20 09:15 Haloperidol Lactate (Haldol) 5 mg Q6H PRN IM Agitation 05/13/20 20:45 06/27/20 20:44 05/28/20 02:40 Heparin Sodium (Porcine) (Heparin 5000 units/ml) 5,000 units EVERY 12 HOURS SUBQ 05/25/20 21:00 07/09/20 20:59 05/28/20 21:09 Levothyroxine Sodium (Synthroid) 50 mcg DAILY@0630 ORAL 05/14/20 06:30 06/13/20 06:29 05/29/20 06:31 Pantoprazole (Protonix) 40 mg Q12HR ORAL 05/26/20 21:00 06/25/20 20:59 05/29/20 09:21 Polyethylene Glycol (Miralax) 17 gm BEDTIME ORAL 05/25/20 21:00 06/24/20 20:59 05/28/20 21:09 Potassium Chloride (K-Dur) 40 meq TWICE A DAY ORAL 05/29/20 10:30 08/27/20 10:29 05/29/20 10:30 Quetiapine Fumarate (SEROqueL) 50 mg Q12HR ORAL 05/24/20 21:00 07/08/20 20:59 05/29/20 09:21 Laboratory Tests 05/29/20 03:50: White Blood Count 3.9L, Red Blood Count 2.15L, Hemoglobin 6.9*L, Hematocrit 19.6L, Mean Corpuscular Volume 91, Mean Corpuscular Hemoglobin 32.0H, Mean Corpuscular Hemoglobin Concent 35.1, Red Cell Distribution Width 15.3H, Platelet Count 137L, Mean Platelet Volume 8.1, Neutrophils (%) (Auto) , Lymphocytes (%) (Auto) , Monocytes (%) (Auto) , Eosinophils (%) (Auto) , Basophils (%) (Auto) , Differential Total Cells Counted 100, Neutrophils % (Manual) 71, Lymphocytes % (Manual) 25, Monocytes % (Manual) 4, Eosinophils % (Manual) 0, Basophils % (Manual) 0, Band Neutrophils 0, Platelet Estimate DecreasedL, Platelet Morphology Normal, Hypochromasia 3+, Anisocytosis 1+, Sodium Level 143, Potassium Level 3.1L, Chloride Level 109H, Carbon Dioxide Level 33H, Anion Gap 1L, Blood Urea Nitrogen 13, Creatinine 0.8, Estimat Glomerular Filtration Rate > 60, Glucose Level 88, Calcium Level 7.3L, Phosphorus Level 2.4L, Magnesium Level 1.9, Total Bilirubin 0.6, Aspartate Amino Transf (AST/SGOT) 15, Alanine Aminotransferase (ALT/SGPT) 12, Alkaline Phosphatase 40L, Total Protein 6.1L, Albumin 2.3L, Globulin 3.8, Albumin/Globulin Ratio 0.6L Height (Feet): 5 Height (Inches): 3.00 Weight (Pounds): 183 General Appearance: no apparent distress, lethargic Respiratory/Chest: decreased breath sounds Abdomen: distended Bryan Ohcoa MD May 29, 2020 15:54
[2020-05-29 16:00] VITALS: BP 109/73
--- NOTE | 2020-05-29 16:07 | Cardiac Electrophysiology PN ---
Assessment/Plan Assessment/Plan 1. Covid PNA and respiratory failure. Self extubated, now on 2 liter nasal cannula. 97% sat off venturi MAsk 2. History of COPD. 3. Hypotension. Off Dopamine. EF 55% 4. Bradycardia resolved 5. Schizophrenia and psychosis. YOSELYN RN Subjective Subjective Self extubated on 05/22/20 on 2 liter NC in Covid isolation No events. In SR Objective Last 24 Hour Vital Signs Date Time Temp Pulse Resp B/P (MAP) Pulse Ox O2 Delivery O2 Flow Rate FiO2 05/29/20 12:00 Nasal Cannula 2.0 05/29/20 12:00 65 05/29/20 12:00 2.0 05/29/20 12:00 98.1 64 18 110/56 (74) 97 05/29/20 08:00 98.1 64 17 116/52 (73) 97 05/29/20 08:00 2.0 05/29/20 08:00 Nasal Cannula 2.0 05/29/20 08:00 65 05/29/20 04:00 97.5 68 18 110/46 (67) 100 05/29/20 04:00 Venturi Mask 15.0 05/29/20 04:00 14.0 55 05/29/20 03:16 63 05/29/20 00:00 14.0 55 05/29/20 00:00 Venturi Mask 15.0 05/29/20 00:00 97.6 66 18 102/41 (61) 100 05/28/20 23:02 63 05/28/20 20:00 14.0 55 05/28/20 20:00 Venturi Mask 15.0 05/28/20 20:00 97.5 61 18 106/42 (63) 100 05/28/20 19:56 59 05/28/20 19:52 98 Venturi Mask 14.0 55 Intake and Output 05/28/20 05/29/20 19:00 07:00 Intake Total 100 ml Balance 100 ml Intake Oral 100 ml # Voids 3 1 Laboratory Tests Test 05/29/20 03:50 White Blood Count 3.9 K/UL (4.8-10.8) L Red Blood Count 2.15 M/UL (4.20-5.40) L Hemoglobin 6.9 G/DL (12.0-16.0) *L Hematocrit 19.6 % (37.0-47.0) L Mean Corpuscular Volume 91 FL (80-99) Mean Corpuscular Hemoglobin 32.0 PG (27.0-31.0) H Mean Corpuscular Hemoglobin Concent 35.1 G/DL (32.0-36.0) Red Cell Distribution Width 15.3 % (11.6-14.8) H Platelet Count 137 K/UL (150-450) L Mean Platelet Volume 8.1 FL (6.5-10.1) Neutrophils (%) (Auto) % (45.0-75.0) Lymphocytes (%) (Auto) % (20.0-45.0) Monocytes (%) (Auto) % (1.0-10.0) Eosinophils (%) (Auto) % (0.0-3.0) Basophils (%) (Auto) % (0.0-2.0) Differential Total Cells Counted 100 Neutrophils % (Manual) 71 % (45-75) Lymphocytes % (Manual) 25 % (20-45) Monocytes % (Manual) 4 % (1-10) Eosinophils % (Manual) 0 % (0-3) Basophils % (Manual) 0 % (0-2) Band Neutrophils 0 % (0-8) Platelet Estimate Decreased L Platelet Morphology Normal Hypochromasia 3+ Anisocytosis 1+ Sodium Level 143 MMOL/L (136-145) Potassium Level 3.1 MMOL/L (3.5-5.1) L Chloride Level 109 MMOL/L (98-107) H Carbon Dioxide Level 33 MMOL/L (21-32) H Anion Gap 1 mmol/L (5-15) L Blood Urea Nitrogen 13 mg/dL (7-18) Creatinine 0.8 MG/DL (0.55-1.30) Estimat Glomerular Filtration Rate > 60 mL/min (>60) Glucose Level 88 MG/DL (74-106) Calcium Level 7.3 MG/DL (8.5-10.1) L Phosphorus Level 2.4 MG/DL (2.5-4.9) L Magnesium Level 1.9 MG/DL (1.8-2.4) Total Bilirubin 0.6 MG/DL (0.2-1.0) Aspartate Amino Transf (AST/SGOT) 15 U/L (15-37) Alanine Aminotransferase (ALT/SGPT) 12 U/L (12-78) Alkaline Phosphatase 40 U/L (46-116) L Total Protein 6.1 G/DL (6.4-8.2) L Albumin 2.3 G/DL (3.4-5.0) L Globulin 3.8 g/dL Albumin/Globulin Ratio 0.6 (1.0-2.7) L Objective HEAD AND NECK: Positive JVD. LUNGS: Decreased breath sounds. CARDIOVASCULAR: Regular S1 and S2 with no gallop. ABDOMEN: Obese. EXTREMITIES: Bilateral 2+ pitting edema. Cameron Davies MD May 29, 2020 16:07
--- NOTE | 2020-05-29 19:37 | Psychiatric Progress Note ---
Psychiatry Progress Note Psychiatry Progress Note Subjective the pt has waxing and waning o consciousness on restraints episodes agitation confused Medications Current Medications Medications (Trade) Dose Ordered Sig/Angie Route PRN Reason Start Time Stop Time Status Last Admin Dose Admin Acetaminophen (Tylenol) 650 mg Q6H PRN NG Fever >100.5 05/14/20 21:00 06/13/20 20:59 05/14/20 21:10 Acetaminophen (Tylenol) 650 mg Q6H PRN NG Mild Pain (Pain Scale 1-3) 05/14/20 21:00 06/13/20 20:59 05/17/20 11:06 Clonidine HCl (Catapres Tab) 0.1 mg Q4H PRN ORAL sbp>170 05/11/20 17:15 08/09/20 17:14 Docusate Sodium (Colace) 100 mg TWICE A DAY ORAL 05/25/20 18:00 06/24/20 17:59 05/29/20 18:00 Haloperidol Lactate (Haldol) 5 mg Q6H PRN IM Agitation 05/13/20 20:45 06/27/20 20:44 05/28/20 02:40 Heparin Sodium (Porcine) (Heparin 5000 units/ml) 5,000 units EVERY 12 HOURS SUBQ 05/25/20 21:00 07/09/20 20:59 05/28/20 21:09 Levothyroxine Sodium (Synthroid) 50 mcg DAILY@0630 ORAL 05/14/20 06:30 06/13/20 06:29 05/29/20 06:31 Pantoprazole (Protonix) 40 mg Q12HR ORAL 05/26/20 21:00 06/25/20 20:59 05/29/20 09:21 Polyethylene Glycol (Miralax) 17 gm BEDTIME ORAL 05/25/20 21:00 06/24/20 20:59 05/28/20 21:09 Potassium Chloride (K-Dur) 40 meq TWICE A DAY ORAL 05/29/20 10:30 08/27/20 10:29 05/29/20 18:00 Quetiapine Fumarate (SEROqueL) 50 mg Q12HR ORAL 05/24/20 21:00 07/08/20 20:59 05/29/20 09:21 Neurological/Psychiatric: Reports: anxiety, depressed, emotional problems Allergies: Coded Allergies: LITHIUM (Verified Allergy, Unknown, 8/28/19) Objective Data Height (Feet): 5 Height (Inches): 3.00 Weight (Pounds): 183 General Appearance: no apparent distress, lethargic Additional Comments: waxing and waning consciousness. Disoriented. Mood is neutral to agitation. Affect is flat. Thought process, there is paucity of thought process. Thought content, no suicidal or homicidal ideation. Cognition is impaired. Insight and judgment is impaired. Assessment/Plan [place] I: [place] I Acute toxic encephalopathy. Schizophrenia. [place] II Deferred. [place] III COVID-19. [place] IV Low. [place] V 20 PLAN: 1. Discontinue the IV Haldol. 2. Start the patient on Haldol IM. 3. The patient benefits from bilateral soft restraints. 4. Provide the patient with reality orientation. 5. Discussed with the nurse. Status: progressing, unchanged Status Narrative [place] I Acute toxic encephalopathy. Schizophrenia. [place] II Deferred. [place] III COVID-19. [place] IV Low. [place] V 20 PLAN: 1. Discontinue the IV Haldol. 2. Start the patient on Haldol IM. 3. The patient benefits from bilateral soft restraints. 4. Provide the patient with reality orientation. 5. Discussed with the nurse. Assessment/Plan: [place] I Acute toxic encephalopathy. Schizophrenia. [place] II Deferred. [place] III COVID-19. [place] IV Low. [place] V 20 PLAN: 1. Discontinue the IV Haldol. 2. Start the patient on Haldol IM. 3. The patient benefits from bilateral soft restraints. 4. Provide the patient with reality orientation. 5. Discussed with the nurse. Kiana Hernandez MD May 29, 2020 19:37
[2020-05-29 20:00] VITALS: BP 114/48
[2020-05-29] MEDS: Miralax 17gm pkt ORAL SCH (20:54)
--- NOTE | 2020-05-29 21:17 | General Progress Note ---
Subjective ROS Limited/Unobtainable: Yes Allergies: Coded Allergies: LITHIUM (Verified Allergy, Unknown, 02/07/19) Objective Last 24 Hour Vital Signs Date Time Temp Pulse Resp B/P (MAP) Pulse Ox O2 Delivery O2 Flow Rate FiO2 05/29/20 20:00 97.5 68 18 114/48 (70) 95 05/29/20 16:00 Nasal Cannula 2.0 05/29/20 16:00 67 05/29/20 16:00 98.1 72 18 109/73 (85) 96 05/29/20 16:00 2.0 05/29/20 12:00 Nasal Cannula 2.0 05/29/20 12:00 65 05/29/20 12:00 2.0 05/29/20 12:00 98.1 64 18 110/56 (74) 97 05/29/20 10:25 97 Nasal Cannula 2.0 28 05/29/20 08:00 98.1 64 17 116/52 (73) 97 05/29/20 08:00 2.0 05/29/20 08:00 Nasal Cannula 2.0 05/29/20 08:00 65 05/29/20 04:00 97.5 68 18 110/46 (67) 100 05/29/20 04:00 Venturi Mask 15.0 05/29/20 04:00 14.0 55 05/29/20 03:16 63 05/29/20 00:00 14.0 55 05/29/20 00:00 Venturi Mask 15.0 05/29/20 00:00 97.6 66 18 102/41 (61) 100 05/28/20 23:02 63 Intake and Output 05/28/20 05/29/20 19:00 07:00 Intake Total 100 ml Balance 100 ml Intake Oral 100 ml # Voids 3 1 Laboratory Tests 05/29/20 03:50: White Blood Count 3.9L, Red Blood Count 2.15L, Hemoglobin 6.9*L, Hematocrit 19.6L, Mean Corpuscular Volume 91, Mean Corpuscular Hemoglobin 32.0H, Mean Corpuscular Hemoglobin Concent 35.1, Red Cell Distribution Width 15.3H, Platelet Count 137L, Mean Platelet Volume 8.1, Neutrophils (%) (Auto) , Lymphocytes (%) (Auto) , Monocytes (%) (Auto) , Eosinophils (%) (Auto) , Basophils (%) (Auto) , Differential Total Cells Counted 100, Neutrophils % (Manual) 71, Lymphocytes % (Manual) 25, Monocytes % (Manual) 4, Eosinophils % (Manual) 0, Basophils % (Ma nual) 0, Band Neutrophils 0, Platelet Estimate DecreasedL, Platelet Morphology Normal, Hypochromasia 3+, Anisocytosis 1+, Sodium Level 143, Potassium Level 3.1L, Chloride Level 109H, Carbon Dioxide Level 33H, Anion Gap 1L, Blood Urea Nitrogen 13, Creatinine 0.8, Estimat Glomerular Filtration Rate > 60, Glucose Level 88, Calcium Level 7.3L, Phosphorus Level 2.4L, Magnesium Level 1.9, Total Bilirubin 0.6, Aspartate Amino Transf (AST/SGOT) 15, Alanine Aminotransferase (ALT/SGPT) 12, Alkaline Phosphatase 40L, Total Protein 6.1L, Albumin 2.3L, Globulin 3.8, Albumin/Globulin Ratio 0.6L Height (Feet): 5 Height (Inches): 3.00 Weight (Pounds): 183 Assessment/Plan Problem List: (1) Anemia ICD Codes: D64.9 - Anemia, unspecified SNOMED: 497055158 (2) Hypercapnic respiratory failure ICD Codes: J96.92 - Respiratory failure, unspecified with hypercapnia SNOMED: 207085169 (3) COVID-19 ICD Codes: U07.1 - COVID-19 SNOMED: 859224317 (4) COPD (chronic obstructive pulmonary disease) ICD Codes: J44.9 - Chronic obstructive pulmonary disease, unspecified SNOMED: 79695476 (5) Psychosis ICD Codes: F29 - Unspecified psychosis not due to a substance or known physiological condition SNOMED: 10178167 (6) Hypoxia ICD Codes: R09.02 - Hypoxemia SNOMED: 802121962 (7) Renal failure (ARF), acute on chronic ICD Codes: N17.9 - Acute kidney failure, unspecified; N18.9 - Chronic kidney disease, unspecified SNOMED: 330732830 (8) CHF exacerbation ICD Codes: I50.9 - Heart failure, unspecified SNOMED: 363590875, 33202613240706 Status: progressing, unchanged Assessment/Plan: severe anemia consulted dr lebron transfusion per dr lebron covid positive pna sepsis copd exac chf exac Dani Perera MD May 29, 2020 21:17
--- NOTE | 2020-05-29 21:48 | General Progress Note ---
Subjective Allergies: Coded Allergies: LITHIUM (Verified Allergy, Unknown, 02/07/19) Subjective above noted patient anemic Objective Last 24 Hour Vital Signs Date Time Temp Pulse Resp B/P (MAP) Pulse Ox O2 Delivery O2 Flow Rate FiO2 05/29/20 20:00 Nasal Cannula 2.0 05/29/20 20:00 97.5 68 18 114/48 (70) 95 05/29/20 20:00 2.0 05/29/20 16:00 Nasal Cannula 2.0 05/29/20 16:00 67 05/29/20 16:00 98.1 72 18 109/73 (85) 96 05/29/20 16:00 2.0 05/29/20 12:00 Nasal Cannula 2.0 05/29/20 12:00 65 05/29/20 12:00 2.0 05/29/20 12:00 98.1 64 18 110/56 (74) 97 05/29/20 10:25 97 Nasal Cannula 2.0 28 05/29/20 08:00 98.1 64 17 116/52 (73) 97 05/29/20 08:00 2.0 05/29/20 08:00 Nasal Cannula 2.0 05/29/20 08:00 65 05/29/20 04:00 97.5 68 18 110/46 (67) 100 05/29/20 04:00 Venturi Mask 15.0 05/29/20 04:00 14.0 55 05/29/20 03:16 63 05/29/20 00:00 14.0 55 05/29/20 00:00 Venturi Mask 15.0 05/29/20 00:00 97.6 66 18 102/41 (61) 100 05/28/20 23:02 63 Intake and Output 05/28/20 05/29/20 19:00 07:00 Intake Total 100 ml Balance 100 ml Intake Oral 100 ml # Voids 3 1 Laboratory Tests 05/29/20 03:50: White Blood Count 3.9L, Red Blood Count 2.15L, Hemoglobin 6.9*L, Hematocrit 19.6L, Mean Corpuscular Volume 91, Mean Corpuscular Hemoglobin 32.0H, Mean Corpuscular Hemoglobin Concent 35.1, Red Cell Distribution Width 15.3H, Platelet Count 137L, Mean Platelet Volume 8.1, Neutrophils (%) (Auto) , Lymphocytes (%) (Auto) , Monocytes (%) (Auto) , Eosinophils (%) (Auto) , Basophils (%) (Auto) , Differential Total Cells Counted 100, Neutrophils % (Manual) 71, Lymphocytes % (Manual) 25, Monocytes % (Manual) 4, Eosinophils % (Manual) 0, Basophils % (Manual) 0, Band Neutrophils 0, Platelet Estimate DecreasedL, Platelet Morphology Normal, Hypochromasia 3+, Anisocytosis 1+, Sodium Level 143, [place] m Level 3.1L, Chloride Level 109H, Carbon Dioxide Level 33H, Anion Gap 1L, Blood Urea Nitrogen 13, Creatinine 0.8, Estimat Glomerular Filtration Rate > 60, Glucose Level 88, Calcium Level 7.3L, Phosphorus Level 2.4L, Magnesium Level 1.9, Total Bilirubin 0.6, Aspartate Amino Transf (AST/SGOT) 15, Alanine Aminotransferase (ALT/SGPT) 12, Alkaline Phosphatase 40L, Total Protein 6.1L, Albumin 2.3L, Globulin 3.8, Albumin/Globulin Ratio 0.6L Height (Feet): 5 Height (Inches): 3.00 Weight (Pounds): 183 Objective WDWN WW more calm today (+) FM O2 exam limited due to COVID isolation Assessment/Plan Status: progressing, unchanged Assessment/Plan: Assessment/Plan (1) Hypertension (2) Schizophrenia (3) Hyperlipidemia (4) Parkinson disease (5) Anemia (6) Obese (7) COVID (+) (8) Hypoxia Recommendations PPI BID Follow H&H Transfuse to keep Hg>7.0 po as tolerated GI procedures at a later date, if needed bowel regimen Aria Chicas MD May 29, 2020 21:48
[2020-05-30] VITALS: BP 99/48
[2020-05-30 04:00] VITALS: BP 114/46
[2020-05-30 05:45] LABS: HEMATOCRIT 22.2 % (37.0-47.0); HEMOGLOBIN 7.4 G/DL (12.0-16.0); MEAN CORPUSCULAR VOLUME 94 FL (80-99); PLATELET COUNT 136 K/UL (150-450); RED BLOOD COUNT 2.35 M/UL (4.20-5.40); WHITE BLOOD COUNT 4.3 K/UL (4.8-10.8)
[2020-05-30 06:08] LABS: ALANINE AMINOTRANSFERASE 13 U/L (12-78); ALBUMIN 2.4 G/DL (3.4-5.0); ALBUMIN/GLOBULIN RATIO 0.6 (1.0-2.7); ALKALINE PHOSPHATASE 45 U/L (46-116); ANION GAP 6 mmol/L (5-15); ASPARTATE AMINO TRANSFERASE 13 U/L (15-37); BILIRUBIN,TOTAL 0.9 MG/DL (0.2-1.0); BLOOD UREA NITROGEN 9 mg/dL (7-18); CALCIUM 7.7 MG/DL (8.5-10.1); CARBON DIOXIDE 31 MMOL/L (21-32); CHLORIDE 108 MMOL/L (98-107); CREATININE 0.8 MG/DL (0.55-1.30); PHOSPHORUS 1.9 MG/DL (2.5-4.9); POTASSIUM 3.2 MMOL/L (3.5-5.1); SODIUM 144 MMOL/L (136-145)
--- NOTE | 2020-05-30 07:45 | Consultation ---
History of Present Illness General Chief Complaint: Dyspnea/Respdistress Present Illness Allergies: Coded Allergies: LITHIUM (Verified Allergy, Unknown, 02/07/19) Medication History Scheduled Amantadine Hcl* (Amantadine*), 100 MG ORAL TWICE A DAY, (Reported) Ascorbic Acid (C-1000), 2,000 MG ORAL DAILY, (Reported) Aspirin* (Aspirin Ec*), 325 MG ORAL DAILY, (Reported) Aspirin* (Aspirin Ec*), 325 MG ORAL DAILY, (Reported) Atorvastatin Calcium* (Lipitor*), 10 MG ORAL BEDTIME, (Reported) Atorvastatin Calcium* (Lipitor*), 10 MG ORAL BEDTIME, (Reported) Cholecalciferol (Vitamin D3) (Vitamin D3), 25 MCG PO DAILY, (Reported) Cholecalciferol (Vitamin D3) (Vitamin D3*), 25 MCG PO DAILY, (Reported) Cranberry Conc/Ascorbic Acid (Cranberry Concentrate Softgel), 2 EACH PO DAILY, (Reported) Divalproex Sodium* (Depakote*), 250 MG ORAL EVERY 12 HOURS Docusate Sodium* (Colace*), 100 MG ORAL DAILY, (Reported) Famotidine (Famotidine), 20 MG PO DAILY, (Reported) Famotidine* (Pepcid 20mg tablet*), 20 MG ORAL DAILY, (Reported) Fluphenazine Decanoate (Fluphenazine Decanoate), 50 MG IJ EVERY MONTH, (Reported) Furosemide* (Lasix*), 20 MG ORAL DAILY, (Reported) Furosemide* (Lasix*), 20 MG ORAL DAILY, (Reported) Heparin Sod (Porcine) (Heparin Sodium*), 5,000 UNITS SUBQ EVERY 12 HOURS, (Reported) Lactulose (Lactulose*), 20 GM NG BID Lactulose (Lactulose*), 30 ML ORAL Q12HR, (Reported) Levothyroxine Sodium* (Synthroid*), 150 MCG ORAL DAILY, (Reported) Levothyroxine Sodium* (Synthorid*), 150 MCG ORAL DAILY, (Reported) Memantine Hcl* (Namenda*), 5 MG ORAL TWICE A DAY, (Reported) Mirtazapine* (Remeron*), 15 MG ORAL BEDTIME, (Reported) Prednisone (Prednisone), 5 MG PO DAILY Prednisone (Prednisone), 5 MG PO DAILY, (Reported) Quetiapine Fumarate* (Seroquel*), 50 MG NG Q12HR Quetiapine Fumarate* (Quetiapine Fumarate*), 50 MG ORAL Q12H, (Reported) Scheduled PRN Acetaminophen* (Acetaminophen 325MG Tablet*), 650 MG ORAL Q6H PRN for Mild Pain (Pain Scale 1-3), (Reported) Acetaminophen* (Acetaminophen 325MG Tablet*), 650 MG ORAL Q4H PRN for Pain Scale (3-5), (Reported) Acetaminophen* (Acetaminophen Extra Strength*), 1,000 MG ORAL Q4HR PRN for Moderate Breakthru Pain (5-7), (Reported) Bisacodyl (Dulcolax), 10 MG RC DAILY PRN for CONSTIPATION, (Reported) Bisacodyl (Bisacodyl), 10 MG RC DAILY PRN for Constipation, (Reported) Ipratropium [place] 0.5MG/2.5ML (Ipratropium [place] 0.5MG/2.5ML), 0.5 MG HHN DAILY PRN for Shortness of Breath, (Reported) Ipratropium/Albuterol Sulfate (DuoNeb 0.5-3(2.5)mg/3ml), 3 ML HHN Q4HR PRN for Shortness of Breath, (Reported) Magnesium Hydroxide* (Milk Of Magnesia*), 30 ML ORAL QHS PRN for Constipation, (Reported) Magnesium Hydroxide* (Milk Of Magnesia*), 30 ML ORAL QHS PRN for Constipation, (Reported) Na Phos,M-B/Na Phos,Di-Ba* (Fleet Enema*), 133 ML RECTAL EVERY OTHER DAY PRN for Constipation, (Reported) Miscellaneous Medications Cranberry Fruit Concentrate (Cranberry), 900 MG PO, (Reported) Patient History Healthcare decision maker Resuscitation status Advanced Directive on File Physical Exam Last 24 Hour Vital Signs Date Time Temp Pulse Resp B/P (MAP) Pulse Ox O2 Delivery O2 Flow Rate FiO2 05/30/20 04:00 96.8 72 18 114/46 (68) 96 05/30/20 04:00 2.0 05/30/20 04:00 Nasal Cannula 2.0 05/30/20 03:20 65 05/30/20 00:00 67 05/30/20 00:00 96.9 74 18 99/48 (65) 97 05/30/20 00:00 Nasal Cannula 2.0 05/30/20 00:00 2.0 05/29/20 21:43 95 Nasal Cannula 2.0 28 05/29/20 20:00 Nasal Cannula 2.0 05/29/20 20:00 97.5 68 18 114/48 (70) 95 05/29/20 20:00 2.0 05/29/20 19:43 70 05/29/20 16:00 Nasal Cannula 2.0 05/29/20 16:00 67 05/29/20 16:00 98.1 72 18 109/73 (85) 96 05/29/20 16:00 2.0 05/29/20 12:00 Nasal Cannula 2.0 05/29/20 12:00 65 05/29/20 12:00 2.0 05/29/20 12:00 98.1 64 18 110/56 (74) 97 05/29/20 10:25 97 Nasal Cannula 2.0 28 05/29/20 08:00 98.1 64 17 116/52 (73) 97 05/29/20 08:00 2.0 05/29/20 08:00 Nasal Cannula 2.0 05/29/20 08:00 65 Intake and Output 05/29/20 05/30/20 19:00 07:00 Intake Total 880 ml 360 ml Balance 880 ml 360 ml Intake Oral 880 ml 360 ml # Voids 3 2 Laboratory Tests Test 05/30/20 03:50 White Blood Count 4.3 K/UL (4.8-10.8) L Red Blood Count 2.35 M/UL (4.20-5.40) L Hemoglobin 7.4 G/DL (12.0-16.0) L Hematocrit 22.2 % (37.0-47.0) L Mean Corpuscular Volume 94 FL (80-99) Mean Corpuscular Hemoglobin 31.6 PG (27.0-31.0) H Mean Corpuscular Hemoglobin Concent 33.5 G/DL (32.0-36.0) Red Cell Distribution Width 15.0 % (11.6-14.8) H Platelet Count 136 K/UL (150-450) L Mean Platelet Volume 7.9 FL (6.5-10.1) Neutrophils (%) (Auto) % (45.0-75.0) Lymphocytes (%) (Auto) % (20.0-45.0) Monocytes (%) (Auto) % (1.0-10.0) Eosinophils (%) (Auto) % (0.0-3.0) Basophils (%) (Auto) % (0.0-2.0) Sodium Level 144 MMOL/L (136-145) Potassium Level 3.2 MMOL/L (3.5-5.1) L Chloride Level 108 MMOL/L (98-107) H Carbon Dioxide Level 31 MMOL/L (21-32) Anion Gap 6 mmol/L (5-15) Blood Urea Nitrogen 9 mg/dL (7-18) Creatinine 0.8 MG/DL (0.55-1.30) Estimat Glomerular Filtration Rate > 60 mL/min (>60) Glucose Level 86 MG/DL (74-106) Calcium Level 7.7 MG/DL (8.5-10.1) L Phosphorus Level 1.9 MG/DL (2.5-4.9) L Magnesium Level 1.9 MG/DL (1.8-2.4) Total Bilirubin 0.9 MG/DL (0.2-1.0) Aspartate Amino Transf (AST/SGOT) 13 U/L (15-37) L Alanine Aminotransferase (ALT/SGPT) 13 U/L (12-78) Alkaline Phosphatase 45 U/L (46-116) L Total Protein 6.1 G/DL (6.4-8.2) L Albumin 2.4 G/DL (3.4-5.0) L Globulin 3.7 g/dL Albumin/Globulin Ratio 0.6 (1.0-2.7) L Height (Feet): 5 Height (Inches): 3.00 Weight (Pounds): 183 Medications Current Medications Medications (Trade) Dose Ordered Sig/Angie Route PRN Reason Start Time Stop Time Status Last Admin Dose Admin Acetaminophen (Tylenol) 650 mg Q6H PRN NG Fever >100.5 05/14/20 21:00 06/13/20 20:59 05/14/20 21:10 Acetaminophen (Tylenol) 650 mg Q6H PRN NG Mild Pain (Pain Scale 1-3) 05/14/20 21:00 06/13/20 20:59 05/17/20 11:06 Clonidine HCl (Catapres Tab) 0.1 mg Q4H PRN ORAL sbp>170 05/11/20 17:15 08/09/20 17:14 Docusate Sodium (Colace) 100 mg TWICE A DAY ORAL 05/25/20 18:00 06/24/20 17:59 05/29/20 18:00 Haloperidol Lactate (Haldol) 5 mg Q6H PRN IM Agitation 05/13/20 20:45 06/27/20 20:44 05/28/20 02:40 Heparin Sodium (Porcine) (Heparin 5000 units/ml) 5,000 units EVERY 12 HOURS SUBQ 05/25/20 21:00 07/09/20 20:59 05/28/20 21:09 Levothyroxine Sodium (Synthroid) 50 mcg DAILY@0630 ORAL 05/14/20 06:30 06/13/20 06:29 05/30/20 05:24 Pantoprazole (Protonix) 40 mg Q12HR ORAL 05/26/20 21:00 06/25/20 20:59 05/29/20 20:54 Polyethylene Glycol (Miralax) 17 gm BEDTIME ORAL 05/25/20 21:00 06/24/20 20:59 05/29/20 20:54 Potassium Chloride (K-Dur) 40 meq TWICE A DAY ORAL 05/29/20 10:30 08/27/20 10:29 05/29/20 18:00 Quetiapine Fumarate (SEROqueL) 50 mg Q12HR ORAL 05/24/20 21:00 07/08/20 20:59 05/29/20 20:54 Assessment/Plan Assessment/Plan: Hematoloy Consultation Covering Dr. Dani Gardner RFA: Resp failure, lower ext edema DOS: 05/30/20 HPI 79y old female, well known to me from prior adms, brought in by paramedics with reports of desaturation and shortness of breath, she is well known to me, from before Patient himself is nonverbal cannot provide any input This does limit the history of present illness Unknown regarding recent cough unknown regarding fever patient appears to have been here recently with significant COPD And respiratory distress She has been admitted here with similar findings in the past Allergies: Coded Allergies: LITHIUM (Verified Allergy, Unknown, 02/07/19) Patient History Limited by: medical condition Past Medical History: see triage record Reviewed Nursing Documentation: PMH: Agreed; PSxH: Agreed Nursing Documentation-PMH Hx Cardiac Problems: Yes - Hyperlipidemia, Hypothyroidism, Parkinson'sm Hypocalcemia, Hx COPD: Yes Hx Cancer: No Hx Gastrointestinal Problems: No Hx Neurological Problems: Yes Hx Dementia: Yes Hx Parkinson's Disease: Yes Review of Systems All Other Systems difficult to obtain, is intubated Physical Exam: Vitals: reviewed General: NAD HEENT: nc, at Neck: supple nc++ Chest: decreased breath sounds bilaterally, crackles+++ Cardiovascular: RRR, no s3, s4 Abdomen: soft, nontender, nd Extremities: 1-2 + edema Neuro: nonverbal Labs noted Imaging: reviewed Assessment and recs --> hgb 11-->10.-->9->11.9-->10.8->7.8->11->>>>7.4 --> plt trend 112-->136 --> wbc 4 --> no e/o hemolysis --> no bleeding reported --> smear reviewed --> no go bleeding --> asa to continue -> neupogen as needed --> transfuse 1 unit 05/30 # Respiratory failure with copd exacerbation likely --> pulm toilet --> breathing rx --> steroids prn basis --> pulm eval ---> ABX per is on zosyn->now off # 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
[2020-05-30 08:00] VITALS: BP 131/57
[2020-05-30] MEDS ORDERED: NS 500ML ONE (08:47)
[2020-05-30] MEDS ORDERED: D5 1/2NS 1000ml IV ONE (08:47)
[2020-05-30] MEDS ORDERED: 1/2 NS 1000ml IV ONE (08:47)
[2020-05-30] MEDS: Heparin 5000 units/ml inj SUBQ SCH ×2 (09:00→20:23)
--- NOTE | 2020-05-30 09:31 | Pulmonology Progress Note ---
Subjective ROS Limited/Unobtainable: Yes Interval Events: None new Constitutional: Denies: fever HEENT: Repors: no symptoms Respiratory: Reports: no symptoms Cardiovascular: Reports: no symptoms Gastrointestinal/Abdominal: Reports: no symptoms Genitourinary: Reports: no symptoms Allergies: Coded Allergies: LITHIUM (Verified Allergy, Unknown, 02/07/19) Objective Last 24 Hour Vital Signs Date Time Temp Pulse Resp B/P (MAP) Pulse Ox O2 Delivery O2 Flow Rate FiO2 05/30/20 04:00 96.8 72 18 114/46 (68) 96 05/30/20 04:00 2.0 05/30/20 04:00 Nasal Cannula 2.0 05/30/20 03:20 65 05/30/20 00:00 67 05/30/20 00:00 96.9 74 18 99/48 (65) 97 05/30/20 00:00 Nasal Cannula 2.0 05/30/20 00:00 2.0 05/29/20 21:43 95 Nasal Cannula 2.0 28 05/29/20 20:00 Nasal Cannula 2.0 05/29/20 20:00 97.5 68 18 114/48 (70) 95 05/29/20 20:00 2.0 05/29/20 19:43 70 05/29/20 16:00 Nasal Cannula 2.0 05/29/20 16:00 67 05/29/20 16:00 98.1 72 18 109/73 (85) 96 05/29/20 16:00 2.0 05/29/20 12:00 Nasal Cannula 2.0 05/29/20 12:00 65 05/29/20 12:00 2.0 05/29/20 12:00 98.1 64 18 110/56 (74) 97 05/29/20 10:25 97 Nasal Cannula 2.0 28 l Intake and Output 05/29/20 05/30/20 19:00 07:00 Intake Total 880 ml 360 ml Balance 880 ml 360 ml Intake Oral 880 ml 360 ml # Voids 3 2 General Appearance: no acute distress HEENT: normocephalic Respiratory: no respiratory distress, decreased breath sounds Cardiovascular: normal rate Abdomen: soft, non tender, other - obese, NG tube Extremities: other - b/l 2+ pitting edema Neurologic: disoriented Laboratory Tests 05/30/20 03:50: White Blood Count 4.3L, Red Blood Count 2.35L, Hemoglobin 7.4L, Hematocrit 22.2L , Mean Corpuscular Volume 94, Mean Corpuscular Hemoglobin 31.6H, Mean Bora uscular Hemoglobin Concent 33.5, Red Cell Distribution Width 15.0H, Platelet Count 136L, Mean Platelet Volume 7.9, Neutrophils (%) (Auto) , Lymphocytes (%) (Auto) , Monocytes (%) (Auto) , Eosinophils (%) (Auto) , Basophils (%) (Auto) , Sodium Level 144, Potassium Level 3.2L, Chloride Level 108H, Carbon Dioxide Level 31, Anion Gap 6, Blood Urea Nitrogen 9, Creatinine 0.8, Estimat Glomerular Filtration Rate > 60, Glucose Level 86, Calcium Level 7.7L, Phosphorus Level 1.9L, Magnesium Level 1.9, Total Bilirubin 0.9, Aspartate Amino Transf (AST/SGOT) 13L, Alanine Aminotransferase (ALT/SGPT) 13, Alkaline Phosphatase 45L , Total Protein 6.1L, Albumin 2.4L, Globulin 3.7, Albumin/Globulin Ratio 0.6L, HIV (1&2) Antibody Rapid [Pending] Current Medications Medications (Trade) Dose Ordered Sig/Angei Route PRN Reason Start Time Stop Time Status Last Admin Dose Admin Acetaminophen (Tylenol) 650 mg Q6H PRN NG Fever >100.5 05/14/20 21:00 06/13/20 20:59 05/14/20 21:10 Acetaminophen (Tylenol) 650 mg Q6H PRN NG Mild Pain (Pain Scale 1-3) 05/14/20 21:00 06/13/20 20:59 05/17/20 11:06 Clonidine HCl (Catapres Tab) 0.1 mg Q4H PRN ORAL sbp>170 05/11/20 17:15 08/09/20 17:14 Docusate Sodium (Colace) 100 mg TWICE A DAY ORAL 05/25/20 18:00 06/24/20 17:59 05/29/20 18:00 Haloperidol Lactate (Haldol) 5 mg Q6H PRN IM Agitation 05/13/20 20:45 06/27/20 20:44 05/28/20 02:40 Heparin Sodium (Porcine) (Heparin 5000 units/ml) 5,000 units EVERY 12 HOURS SUBQ 05/25/20 21:00 07/09/20 20:59 05/28/20 21:09 Levothyroxine Sodium (Synthroid) 50 mcg DAILY@0630 ORAL 05/14/20 06:30 06/13/20 06:29 05/30/20 05:24 Pantoprazole (Protonix) 40 mg Q12HR ORAL 05/26/20 21:00 06/25/20 20:59 05/29/20 20:54 Polyethylene Glycol (Miralax) 17 gm BEDTIME ORAL 05/25/20 21:00 06/24/20 20:59 05/29/20 20:54 Potassium Phosphate 20 mm/ Sodium Chloride 281.6667 ml @ 46.944 m... ONCE ONCE IV 05/30/20 11:00 05/30/20 16:59 Potassium Chloride (K-Dur) 40 meq TWICE A DAY ORAL 05/29/20 10:30 08/27/20 10:29 05/29/20 18:00 Quetiapine Fumarate (SEROqueL) 50 mg Q12HR ORAL 05/24/20 21:00 07/08/20 20:59 05/29/20 20:54 Assessment/Plan Assessment/Plan 1. Bilateral COVID-19 multilobar pneumonia. - s/p ETT - Afebrile - s/p Azithromycin, Ceftriaxone, dexamethasone - s/p remdesivir 2. Hx of COPD. 3. Schizophrenia/psychosis - On haloperidol per Dr. Hernandez 4. Hypoxia. - on Venturi mask, desats to 79-80% when she contantly takes her mask off, s/p self extubation - s/p 5 lpm NC; pt noncompliance - keep her on venturi mask, while maintaining good seal around the mask - Will start LAsix 40 mg IV BID 5. Anemia - due for pRBC today 6. Azotemia/renal failure - UA: Positive leuk esterase, protein, RBC, WBC (05/11/2020) - BUN 32 -> 39 -> 34 -> 25 DVT ppx The care for this patient was discussed with my supervising physician Time spent for this case was 31 minutes The patient was seen and examined at bedside and all new and available data was reviewed in the patients chart. I agree with the above findings, impression, and plan. (Patient was seen earlier today. Signature timestamp does not reflect patient encounter time) Sincere Martinez MD, MD May 30, 2020 09:31
[2020-05-30] MEDS: Docusate 100mg cap ORAL SCH ×2 (09:40→18:29)
--- NOTE | 2020-05-30 10:59 | Infectious Diseases Prog Note ---
Assessment/Plan Assessment/Plan IMPRESSION: COVID-19 disease, Acute respiratory failure, COPD, Diastolic CHF, Mitral valve regurgitation, Anemia, Parkinson disease, schizoaffective disorder, Dementia, Obstructive sleep apnea, Hypothyroidism. 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 RECOMMENDATION: Finished dexamethasone & Remdesivir course Observe off of antibiotic Subjective ROS Limited/Unobtainable: Yes Constitutional: Denies: fever Allergies: Coded Allergies: LITHIUM (Verified Allergy, Unknown, 02/07/19) Objective Last 24 Hour Vital Signs Date Time Temp Pulse Resp B/P (MAP) Pulse Ox O2 Delivery O2 Flow Rate FiO2 05/30/20 04:00 96.8 72 18 114/46 (68) 96 05/30/20 04:00 2.0 05/30/20 04:00 Nasal Cannula 2.0 05/30/20 03:20 65 05/30/20 00:00 67 05/30/20 00:00 96.9 74 18 99/48 (65) 97 05/30/20 00:00 Nasal Cannula 2.0 05/30/20 00:00 2.0 05/29/20 21:43 95 Nasal Cannula 2.0 28 05/29/20 20:00 Nasal Cannula 2.0 05/29/20 20:00 97.5 68 18 114/48 (70) 95 05/29/20 20:00 2.0 05/29/20 19:43 70 05/29/20 16:00 Nasal Cannula 2.0 05/29/20 16:00 67 05/29/20 16:00 98.1 72 18 109/73 (85) 96 05/29/20 16:00 2.0 05/29/20 12:00 Nasal Cannula 2.0 05/29/20 12:00 65 05/29/20 12:00 2.0 05/29/20 12:00 98.1 64 18 110/56 (74) 97 Height (Feet): 5 Height (Inches): 3.00 Weight (Pounds): 183 HEENT: mucous membranes moist Respiratory/Chest: other - oxygen by nasal cannula Cardiovascular: normal rate Abdomen: soft, non tender Extremities: no edema Neurologic/Psychiatric: alert Laboratory Tests Test 05/30/20 03:50 White Blood Count 4.3 K/UL (4.8-10.8) L Red Blood Count 2.35 M/UL (4.20-5.40) L Hemoglobin 7.4 G/DL (12.0-16.0) L Hematocrit 22.2 % (37.0-47.0) L Mean Corpuscular Volume 94 FL (80-99) Mean Corpuscular Hemoglobin 31.6 PG (27.0-31.0) H Mean Corpuscular Hemoglobin Concent 33.5 G/DL (32.0-36.0) Red Cell Distribution Width 15.0 % (11.6-14.8) H Platelet Count 136 K/UL (150-450) L Mean Platelet Volume 7.9 FL (6.5-10.1) Neutrophils (%) (Auto) % (45.0-75.0) Lymphocytes (%) (Auto) % (20.0-45.0) Monocytes (%) (Auto) % (1.0-10.0) Eosinophils (%) (Auto) % (0.0-3.0) Basophils (%) (Auto) % (0.0-2.0) Sodium Level 144 MMOL/L (136-145) Potassium Level 3.2 MMOL/L (3.5-5.1) L Chloride Level 108 MMOL/L (98-107) H Carbon Dioxide Level 31 MMOL/L (21-32) Anion Gap 6 mmol/L (5-15) Blood Urea Nitrogen 9 mg/dL (7-18) Creatinine 0.8 MG/DL (0.55-1.30) Estimat Glomerular Filtration Rate > 60 mL/min (>60) Glucose Level 86 MG/DL (74-106) Calcium Level 7.7 MG/DL (8.5-10.1) L Phosphorus Level 1.9 MG/DL (2.5-4.9) L Magnesium Level 1.9 MG/DL (1.8-2.4) Total Bilirubin 0.9 MG/DL (0.2-1.0) Aspartate Amino Transf (AST/SGOT) 13 U/L (15-37) L Alanine Aminotransferase (ALT/SGPT) 13 U/L (12-78) Alkaline Phosphatase 45 U/L (46-116) L Total Protein 6.1 G/DL (6.4-8.2) L Albumin 2.4 G/DL (3.4-5.0) L Globulin 3.7 g/dL Albumin/Globulin Ratio 0.6 (1.0-2.7) L HIV (1&2) Antibody Rapid Negative (NEGATIVE) Current Medications Medications (Trade) Dose Ordered Sig/Angie Route PRN Reason Start Time Stop Time Status Last Admin Dose Admin Acetaminophen (Tylenol) 650 mg Q6H PRN NG Fever >100.5 05/14/20 21:00 06/13/20 20:59 05/14/20 21:10 Acetaminophen (Tylenol) 650 mg Q6H PRN NG Mild Pain (Pain Scale 1-3) 05/14/20 21:00 06/13/20 20:59 05/17/20 11:06 Clonidine HCl (Catapres Tab) 0.1 mg Q4H PRN ORAL sbp>170 05/11/20 17:15 08/09/20 17:14 Docusate Sodium (Colace) 100 mg TWICE A DAY ORAL 05/25/20 18:00 06/24/20 17:59 05/30/20 09:40 Furosemide (Lasix) 40 mg EVERY 12 HOURS IV 05/30/20 09:30 06/29/20 09:29 05/30/20 10:38 Haloperidol Lactate (Haldol) 5 mg Q6H PRN IM Agitation 05/13/20 20:45 06/27/20 20:44 05/28/20 02:40 Heparin Sodium (Porcine) (Heparin 5000 units/ml) 5,000 units EVERY 12 HOURS SUBQ 05/25/20 21:00 07/09/20 20:59 05/28/20 21:09 Levothyroxine Sodium (Synthroid) 50 mcg DAILY@0630 ORAL 05/14/20 06:30 06/13/20 06:29 05/30/20 05:24 Pantoprazole (Protonix) 40 mg Q12HR ORAL 05/26/20 21:00 06/25/20 20:59 05/30/20 09:41 Polyethylene Glycol (Miralax) 17 gm BEDTIME ORAL 05/25/20 21:00 06/24/20 20:59 05/29/20 20:54 Potassium Phosphate 20 mm/ Sodium Chloride 281.6667 ml @ 46.944 m... ONCE ONCE IV 05/30/20 11:00 05/30/20 16:59 Potassium Chloride (K-Dur) 40 meq TWICE A DAY ORAL 05/29/20 10:30 08/27/20 10:29 05/30/20 09:41 Quetiapine Fumarate (SEROqueL) 50 mg Q12HR ORAL 05/24/20 21:00 07/08/20 20:59 05/30/20 09:41 Lei Chan MD May 30, 2020 10:59
[2020-05-30] MEDS ORDERED: Potassium Phosphate 20 MM in NS 275 ML IV ONE (11:00)
[2020-05-30 12:00] VITALS: BP 120/58
--- NOTE | 2020-05-30 12:44 | Surgery Progress Note ---
Surgery Progress Note Subjective Symptoms: improved, tolerating diet, passing flatus Objective Last 24 Hour Vital Signs Date Time Temp Pulse Resp B/P (MAP) Pulse Ox O2 Delivery O2 Flow Rate FiO2 05/30/20 08:00 Nasal Cannula 2.0 05/30/20 08:00 69 05/30/20 08:00 97.0 68 20 131/57 (81) 96 05/30/20 08:00 2.0 05/30/20 07:42 99 Nasal Cannula 4.0 36 05/30/20 04:00 96.8 72 18 114/46 (68) 96 05/30/20 04:00 2.0 05/30/20 04:00 Nasal Cannula 2.0 05/30/20 03:20 65 05/30/20 00:00 67 05/30/20 00:00 96.9 74 18 99/48 (65) 97 05/30/20 00:00 Nasal Cannula 2.0 05/30/20 00:00 2.0 05/29/20 21:43 95 Nasal Cannula 2.0 28 05/29/20 20:00 Nasal Cannula 2.0 05/29/20 20:00 97.5 68 18 114/48 (70) 95 05/29/20 20:00 2.0 05/29/20 19:43 70 05/29/20 16:00 Nasal Cannula 2.0 05/29/20 16:00 67 05/29/20 16:00 98.1 72 18 109/73 (85) 96 05/29/20 16:00 2.0 I&O Intake and Output 0 05/29/20 05/30/20 19:00 07:00 Intake Total 880 ml 360 ml Balance 880 ml 360 ml Intake Oral 880 ml 360 ml # Voids 3 2 Dressing: saturated Cardiovascular: RSR Respiratory: decreased breath sounds Abdomen: non-tender, present bowel sounds, decreased bowel sounds Extremities: edema, no tenderness, no cyanosis Laboratory Tests Test 05/30/20 03:50 White Blood Count 4.3 K/UL (4.8-10.8) L Red Blood Count 2.35 M/UL (4.20-5.40) L Hemoglobin 7.4 G/DL (12.0-16.0) L Hematocrit 22.2 % (37.0-47.0) L Mean Corpuscular Volume 94 FL (80-99) Mean Corpuscular Hemoglobin 31.6 PG (27.0-31.0) H Mean Corpuscular Hemoglobin Concent 33.5 G/DL (32.0-36.0) Red Cell Distribution Width 15.0 % (11.6-14.8) H Platelet Count 136 K/UL (150-450) L Mean Platelet Volume 7.9 FL (6.5-10.1) Neutrophils (%) (Auto) % (45.0-75.0) Lymphocytes (%) (Auto) % (20.0-45.0) Monocytes (%) (Auto) % (1.0-10.0) Eosinophils (%) (Auto) % (0.0-3.0) Basophils (%) (Auto) % (0.0-2.0) Sodium Level 144 MMOL/L (136-145) Potassium Level 3.2 MMOL/L (3.5-5.1) L Chloride Level 108 MMOL/L (98-107) H Carbon Dioxide Level 31 MMOL/L (21-32) Anion Gap 6 mmol/L (5-15) Blood Urea Nitrogen 9 mg/dL (7-18) Creatinine 0.8 MG/DL (0.55-1.30) Estimat Glomerular Filtration Rate > 60 mL/min (>60) Glucose Level 86 MG/DL (74-106) Calcium Level 7.7 MG/DL (8.5-10.1) L Phosphorus Level 1.9 MG/DL (2.5-4.9) L Magnesium Level 1.9 MG/DL (1.8-2.4) Total Bilirubin 0.9 MG/DL (0.2-1.0) Aspartate Amino Transf (AST/SGOT) 13 U/L (15-37) L Alanine Aminotransferase (ALT/SGPT) 13 U/L (12-78) Alkaline Phosphatase 45 U/L (46-116) L Total Protein 6.1 G/DL (6.4-8.2) L Albumin 2.4 G/DL (3.4-5.0) L Globulin 3.7 g/dL Albumin/Globulin Ratio 0.6 (1.0-2.7) L HIV (1&2) Antibody Rapid Negative (NEGATIVE) Plan Problems: (1) Anemia (2) Hypercapnic respiratory failure Assessment & Plan: respiratory insufficiency requiring prolonged ventilatory support unable to wean vent safely after multiple attempts discussed with pcp. discussed with pulm discussed with patient guardian. patient unable to consent. no nok or poa. given critical care and condition not recommended to await court decision which during pandemic can take long time. medically necessary to proceed with trach in patients best interest. 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
[2020-05-30] MEDS ORDERED: Lidocaine 1% Plain 30 ml INJ PRN (13:15)
[2020-05-30] MEDS ORDERED: Heparin1,000 units/500ml Premix(Conc:2 units/ml) INJ PRN (13:15)
--- NOTE | 2020-05-30 14:02 | Cardiac Electrophysiology PN ---
Assessment/Plan Assessment/Plan 1. Covid PNA and respiratory failure. S/P Remdesevir and Dexamethasone Self extubated on 2 liter nasal cannula. 97% sat off venturi Mask Off Abx per ID 2. History of COPD. 3. Hypotension. Off Dopamine. EF 55% 4. Bradycardia resolved 5. Schizophrenia and psychosis. YOSELYN RN Subjective Subjective Self extubated on 05/22/20 on 2 liter NC in Covid isolation No events. In SR. Undergoing PICC line placement Objective Last 24 Hour Vital Signs Date Time Temp Pulse Resp B/P (MAP) Pulse Ox O2 Delivery O2 Flow Rate FiO2 05/30/20 12:00 Nasal Cannula 2.0 05/30/20 12:00 2.0 05/30/20 12:00 97.0 64 20 120/58 (78) 97 66 05/30/20 12:00 65 05/30/20 08:00 Nasal Cannula 2.0 05/30/20 08:00 69 05/30/20 08:00 97.0 68 20 131/57 (81) 96 05/30/20 08:00 2.0 05/30/20 07:42 99 Nasal Cannula 4.0 36 05/30/20 04:00 96.8 72 18 114/46 (68) 96 05/30/20 04:00 2.0 05/30/20 04:00 Nasal Cannula 2.0 05/30/20 03:20 65 05/30/20 00:00 67 05/30/20 00:00 96.9 74 18 99/48 (65) 97 05/30/20 00:00 Nasal Cannula 2.0 05/30/20 00:00 2.0 05/29/20 21:43 95 Nasal Cannula 2.0 28 05/29/20 20:00 Nasal Cannula 2.0 05/29/20 20:00 97.5 68 18 114/48 (70) 95 05/29/20 20:00 2.0 05/29/20 19:43 70 05/29/20 16:00 Nasal Cannula 2.0 05/29/20 16:00 67 05/29/20 16:00 98.1 72 18 109/73 (85) 96 05/29/20 16:00 2.0 Intake and Output 05/29/20 05/30/20 19:00 07:00 Intake Total 880 ml 360 ml Balance 880 ml 360 ml Intake Oral 880 ml 360 ml # Voids 3 2 Laboratory Tests Test 05/30/20 03:50 White Blood Count 4.3 K/UL (4.8-10.8) L Red Blood Count 2.35 M/UL (4.20-5.40) L Hemoglobin 7.4 G/DL (12.0-16.0) L Hematocrit 22.2 % (37.0-47.0) L Mean Corpuscular Volume 94 FL (80-99) Mean Corpuscular Hemoglobin 31.6 PG (27.0-31.0) H Mean Corpuscular Hemoglobin Concent 33.5 G/DL (32.0-36.0) Red Cell Distribution Width 15.0 % (11.6-14.8) H Platelet Count 136 K/UL (150-450) L Mean Platelet Volume 7.9 FL (6.5-10.1) Neutrophils (%) (Auto) % (45.0-75.0) Lymphocytes (%) (Auto) % (20.0-45.0) Monocytes (%) (Auto) % (1.0-10.0) Eosinophils (%) (Auto) % (0.0-3.0) Basophils (%) (Auto) % (0.0-2.0) Sodium Level 144 MMOL/L (136-145) Potassium Level 3.2 MMOL/L (3.5-5.1) L Chloride Level 108 MMOL/L (98-107) H Carbon Dioxide Level 31 MMOL/L (21-32) Anion Gap 6 mmol/L (5-15) Blood Urea Nitrogen 9 mg/dL (7-18) Creatinine 0.8 MG/DL (0.55-1.30) Estimat Glomerular Filtration Rate > 60 mL/min (>60) Glucose Level 86 MG/DL (74-106) Calcium Level 7.7 MG/DL (8.5-10.1) L Phosphorus Level 1.9 MG/DL (2.5-4.9) L Magnesium Level 1.9 MG/DL (1.8-2.4) Total Bilirubin 0.9 MG/DL (0.2-1.0) Aspartate Amino Transf (AST/SGOT) 13 U/L (15-37) L Alanine Aminotransferase (ALT/SGPT) 13 U/L (12-78) Alkaline Phosphatase 45 U/L (46-116) L Total Protein 6.1 G/DL (6.4-8.2) L Albumin 2.4 G/DL (3.4-5.0) L Globulin 3.7 g/dL Albumin/Globulin Ratio 0.6 (1.0-2.7) L HIV (1&2) Antibody Rapid Negative (NEGATIVE) Objective HEAD AND NECK: Positive JVD. LUNGS: Decreased breath sounds. CARDIOVASCULAR: Regular S1 and S2 with no gallop. ABDOMEN: Obese. EXTREMITIES: Bilateral 2+ pitting edema. Cameron Davies MD May 30, 2020 14:02
--- NOTE | 2020-05-30 14:12 | Nephrology Progress Note ---
Assessment/Plan Problem List: (1) Renal failure (ARF), acute on chronic (2) Hypercapnic respiratory failure (3) CHF exacerbation (4) Anemia Assessment Azotemia/renal failure Acute respiratory failure most likely secondary to CHF, on mechanical ventilation History of COPD Hypertension Hyperlipemia Schizophrenia/psychosis Plan May 30: Lab reviewed. Potassium and phosphorus replaced. Hemoglobin higher after transfusion. Continue per consultants. May 29: Lab reviewed. Patient anemic. Electrolyte abnormalities reviewed and addressed. Continue per consultants. Remains stable from renal standpoint of view. May 28: Patient was not transfused despite of my order since yesterday. Will defer transfusion to PMD/equipment service lead. Patient remains stable from renal standpoint of view. Continue per consultants. Discussed with Marlene nursing charge in [place]. May 27: Remains on Venturi mask. Labs reviewed. Abnormal electrolytes addressed. Hemoglobin low. Will transfuse 1 unit of packed RBCs today May 26: On Venturi mask. Labs reviewed. Abnormal electrolytes addressed. Continue per consultants and pulmonary support. May 25: On Venturi mask. Lethargic. No labs drawn today. Will monitor renal parameters. Per orders. May 24: Remains extubated. Will start on diet with high alert for possible aspiration. Continue to monitor renal parameters. May 23: Continues to be extubated. On nonrebreathing mask. Labs reviewed. Renal parameters stable. Discussed with RN. Continue per current management. May 22: Now extubated on nonrebreathing mask. Labs reviewed. Renal parameters stable. Abnormal electrolytes addressed. Discussed with RN. May 21: Remains intubated. Labs reviewed. Abnormal electrolytes addressed. Discussed with RN. May 20: Remains intubated. Abnormal electrolyte noted on today's lab results and addressed. Continue per consultants. May 19: Patient remains intubated. Labs reviewed. Abnormal electrolytes addressed. Continue per current management. May 18: Patient seen in ICU. Remains intubated. Weaning is being tried. Discussed with RN. Labs reviewed. Abnormal electrolyte addressed. Continue per consultants. May 17: Labs reviewed. Remains intubated. Stable from renal standpoint of view. Continue weaning. Discussed with RN. May 16: Labs reviewed. Remains intubated. Remains full code. Stable from renal standpoint of view. Abnormal electrolytes addressed. May 15: Labs reviewed. Renal parameters stable. Discussed with RN. Patient remains intubated on ventilator and full code. Continue per consultants. May 14: Labs reviewed. Discussed with RN. Abnormal electrolyte addressed. Continue per current management. Patient seen in ICU. Discussed with RN. Today's labs pending. Patient remains on 6 mics of dopamine. Pulmonary support Monitor intake and output Monitor electrolytes Continue per consultants Per orders Subjective ROS Limited/Unobtainable: No Constitutional: Reports: malaise Objective Objective Last 24 Hour Vital Signs Date Time Temp Pulse Resp B/P (MAP) Pulse Ox O2 Delivery O2 Flow Rate FiO2 05/30/20 12:00 Nasal Cannula 2.0 05/30/20 12:00 2.0 05/30/20 12:00 97.0 64 20 120/58 (78) 97 66 05/30/20 12:00 65 05/30/20 08:00 Nasal Cannula 2.0 05/30/20 08:00 69 05/30/20 08:00 97.0 68 20 131/57 (81) 96 05/30/20 08:00 2.0 05/30/20 07:42 99 Nasal Cannula 4.0 36 05/30/20 04:00 96.8 72 18 114/46 (68) 96 05/30/20 04:00 2.0 05/30/20 04:00 Nasal Cannula 2.0 05/30/20 03:20 65 05/30/20 00:00 67 05/30/20 00:00 96.9 74 18 99/48 (65) 97 05/30/20 00:00 Nasal Cannula 2.0 05/30/20 00:00 2.0 05/29/20 21:43 95 Nasal Cannula 2.0 28 05/29/20 20:00 Nasal Cannula 2.0 05/29/20 20:00 97.5 68 18 114/48 (70) 95 05/29/20 20:00 2.0 05/29/20 19:43 70 05/29/20 16:00 Nasal Cannula 2.0 05/29/20 16:00 67 05/29/20 16:00 98.1 72 18 109/73 (85) 96 05/29/20 16:00 2.0 Intake and Output 05/29/20 05/30/20 19:00 07:00 Intake Total 880 ml 360 ml Balance 880 ml 360 ml Intake Oral 880 ml 360 ml # Voids 3 2 Current Medications Medications (Trade) Dose Ordered Sig/Angie Route PRN Reason Start Time Stop Time Status Last Admin Dose Admin Acetaminophen (Tylenol) 650 mg Q6H PRN NG Fever >100.5 05/14/20 21:00 06/13/20 20:59 05/14/20 21:10 Acetaminophen (Tylenol) 650 mg Q6H PRN NG Mild Pain (Pain Scale 1-3) 05/14/20 21:00 06/13/20 20:59 05/17/20 11:06 Clonidine HCl (Catapres Tab) 0.1 mg Q4H PRN ORAL sbp>170 05/11/20 17:15 08/09/20 17:14 Docusate Sodium (Colace) 100 mg TWICE A DAY ORAL 05/25/20 18:00 06/24/20 17:59 05/30/20 09:40 Furosemide (Lasix) 40 mg EVERY 12 HOURS IV 05/30/20 09:30 06/29/20 09:29 05/30/20 10:38 Haloperidol Lactate (Haldol) 5 mg Q6H PRN IM Agitation 05/13/20 20:45 06/27/20 20:44 05/28/20 02:40 Heparin Sodium (Porcine) (Heparin 5000 units/ml) 5,000 units EVERY 12 HOURS SUBQ 05/25/20 21:00 07/09/20 20:59 05/28/20 21:09 Heparin Sodium/ Sodium Chloride (Heparin 1000 units/500ml Premix) 1,000 unit ONCE PRN INJ radiology use 05/30/20 13:15 06/02/20 13:14 Levothyroxine Sodium (Synthroid) 50 mcg DAILY@0630 ORAL 05/14/20 06:30 06/13/20 06:29 05/30/20 05:24 Lidocaine HCl (Xylocaine 1% 30ml) 30 ml ONCE PRN INJ radiology use 05/30/20 13:15 06/02/20 13:14 Pantoprazole (Protonix) 40 mg Q12HR ORAL 05/26/20 21:00 06/25/20 20:59 05/30/20 09:41 Polyethylene Glycol (Miralax) 17 gm BEDTIME ORAL 05/25/20 21:00 06/24/20 20:59 05/29/20 20:54 Potassium Phosphate 20 mm/ Sodium Chloride 281.6667 ml @ 46.944 m... ONCE ONCE IV 05/30/20 11:00 05/30/20 16:59 05/30/20 12:00 Potassium Chloride (K-Dur) 40 meq TWICE A DAY ORAL 05/29/20 10:30 08/27/20 10:29 05/30/20 09:41 Quetiapine Fumarate (SEROqueL) 50 mg Q12HR ORAL 05/24/20 21:00 07/08/20 20:59 05/30/20 09:41 Laboratory Tests 05/30/20 03:50: White Blood Count 4.3L, Red Blood Count 2.35L, Hemoglobin 7.4L, Hematocrit 22.2L , Mean Corpuscular Volume 94, Mean Corpuscular Hemoglobin 31.6H, Mean Corpuscular Hemoglobin Concent 33.5, Red Cell Distribution Width 15.0H, Platelet Count 136L, Mean Platelet Volume 7.9, Neutrophils (%) (Auto) , Lymphocytes (%) (Auto) , Monocytes (%) (Auto) , Eosinophils (%) (Auto) , Basophils (%) (Auto) , Sodium Level 144, Potassium Level 3.2L, Chloride Level 108H, Carbon Dioxide Level 31, Anion Gap 6, Blood Urea Nitrogen 9, Creatinine 0.8, Estimat Glomerular Filtration Rate > 60, Glucose Level 86, Calcium Level 7.7L, Phosphorus Level 1.9L, Magnesium Level 1.9, Total Bilirubin 0.9, Aspartate Amino Transf (AST/SGOT) 13L, Alanine Aminotransferase (ALT/SGPT) 13, Alkaline Phosphatase 45L , Total Protein 6.1L, Albumin 2.4L, Globulin 3.7, Albumin/Globulin Ratio 0.6L, HIV (1&2) Antibody Rapid Negative Height (Feet): 5 Height (Inches): 3.00 Weight (Pounds): 183 General Appearance: no apparent distress EENT: other - On nasal cannula Cardiovascular: normal rate Respiratory/Chest: decreased breath sounds Abdomen: distended Bryan Ochoa MD May 30, 2020 14:12
[2020-05-30 16:00] VITALS: BP 136/57
--- NOTE | 2020-05-30 18:27 | Brief Operative Note ---
Immediate Post Operative Note Operative Note Pre-op Diagnosis: needs IV access Procedure: PICC Post-op Diagnosis: same as pre-op Surgeon: Peter Bar Anesthesia: local Specimen: none Complications: none Fluids: none Implant(s) used?: No Porfirio Bar MD May 30, 2020 18:27
--- NOTE | 2020-05-30 18:34 | Diagnostic Imaging Report ---
Indications: Needs long-term IV access Technique: Procedure performed at bedside. Procedural timeout performed. Ultrasound confirms patent compressible left basilic vein. Total sterile technique, including sterile probe cover and sterile gel, sterile gloves, hand hygiene, hat, mask,, sterile gown, large sterile drape, and preparation with 2% chlorhexidine utilized. Local anesthesia with 1% lidocaine. Under real-time ultrasound guidance, puncture basilic vein using 21-gauge needle, passage 0.018 guidewire, exchange for 4 Kinyarwanda peel-away sheath. 4 Kinyarwanda Bard dual-lumen power PICC cut to 44 cm. It was inserted through the peel-away sheath. Peel-away sheath and guidewire removed. Catheter fixed to the skin. Both catheter ports aspirated and flushed. Patient tolerated procedure well, without immediate complication. Followup chest x-ray obtained, documents catheter tip position at the cavoatrial junction Impression: Successful bedside placement of left arm PICC under sonographic guidance, as described above.
[2020-05-30 20:00] VITALS: BP 148/82
[2020-05-30] MEDS: Miralax 17gm pkt ORAL SCH (20:23)
--- NOTE | 2020-05-30 21:29 | General Progress Note ---
Subjective ROS Limited/Unobtainable: Yes Allergies: Coded Allergies: LITHIUM (Verified Allergy, Unknown, 02/07/19) Objective Last 24 Hour Vital Signs Date Time Temp Pulse Resp B/P (MAP) Pulse Ox O2 Delivery O2 Flow Rate FiO2 05/30/20 20:00 2.0 05/30/20 16:00 2.0 05/30/20 16:00 60 05/30/20 16:00 98.2 69 20 136/57 (83) 97 05/30/20 16:00 Nasal Cannula 2.0 05/30/20 12:00 Nasal Cannula 2.0 05/30/20 12:00 2.0 05/30/20 12:00 97.0 64 20 120/58 (78) 97 66 05/30/20 12:00 65 05/30/20 08:00 Nasal Cannula 2.0 05/30/20 08:00 69 05/30/20 08:00 97.0 68 20 131/57 (81) 96 05/30/20 08:00 2.0 05/30/20 07:42 99 Nasal Cannula 4.0 36 05/30/20 04:00 96.8 72 18 114/46 (68) 96 05/30/20 04:00 2.0 05/30/20 04:00 Nasal Cannula 2.0 05/30/20 03:20 65 05/30/20 00:00 67 05/30/20 00:00 96.9 74 18 99/48 (65) 97 05/30/20 00:00 Nasal Cannula 2.0 05/30/20 00:00 2.0 05/29/20 21:43 95 Nasal Cannula 2.0 28 Intake and Output 05/29/20 05/30/20 19:00 07:00 Intake Total 880 ml 360 ml Balance 880 ml 360 ml Intake Oral 880 ml 360 ml # Voids 3 2 Laboratory Tests 05/30/20 03:50: White Blood Count 4.3L, Red Blood Count 2.35L, Hemoglobin 7.4L, Hematocrit 22.2L , Mean Corpuscular Volume 94, Mean Corpuscular Hemoglobin 31.6H, Mean Corpuscu lar Hemoglobin Concent 33.5, Red Cell Distribution Width 15.0H, Platelet Count 136L, Mean Platelet Volume 7.9, Neutrophils (%) (Auto) , Lymphocytes (%) (Auto) , Monocytes (%) (Auto) , Eosinophils (%) (Auto) , Basophils (%) (Auto) , Sodium Level 144, Potassium Level 3.2L, Chloride Level 108H, Carbon Dioxide Level 31, Anion Gap 6, Blood Urea Nitrogen 9, Creatinine 0.8, Estimat Glomerular Filtration Rate > 60, Glucose Level 86, Calcium Level 7.7L, Phosphorus Level 1.9L, Magnesium Level 1.9, Total Bilirubin 0.9, Aspartate Amino Transf (AST/SGOT) 13L, Alanine Aminotransferase (ALT/SGPT) 13, Alkaline Phosphatase 45L , Total Protein 6.1L, Albumin 2.4L, Globulin 3.7, Albumin/Globulin Ratio 0.6L, HIV (1&2) Antibody Rapid Negative Height (Feet): 5 Height (Inches): 3.00 Weight (Pounds): 183 Assessment/Plan Problem List: (1) Anemia ICD Codes: D64.9 - Anemia, unspecified SNOMED: 716055822 (2) Hypercapnic respiratory failure ICD Codes: J96.92 - Respiratory failure, unspecified with hypercapnia SNOMED: 650723200 (3) COVID-19 ICD Codes: U07.1 - COVID-19 SNOMED: 243226289 (4) COPD (chronic obstructive pulmonary disease) ICD Codes: J44.9 - Chronic obstructive pulmonary disease, unspecified SNOMED: 89000963 (5) Psychosis ICD Codes: F29 - Unspecified psychosis not due to a substance or known physiological condition SNOMED: 57714655 (6) Hypoxia ICD Codes: R09.02 - Hypoxemia SNOMED: 088377123 (7) Renal failure (ARF), acute on chronic ICD Codes: N17.9 - Acute kidney failure, unspecified; N18.9 - Chronic kidney disease, unspecified SNOMED: 701426366 (8) CHF exacerbation ICD Codes: I50.9 - Heart failure, unspecified SNOMED: 489175652, 46228324173936 Status: progressing, unchanged Assessment/Plan: resp insuf psych pt obesity tendency to refuse meds covid positive pna sepsis copd exac chf exac Dani Perera MD May 30, 2020 21:28
--- NOTE | 2020-05-30 21:33 | General Progress Note ---
Subjective Allergies: Coded Allergies: LITHIUM (Verified Allergy, Unknown, 02/07/19) Subjective above noted patient anemic Objective Last 24 Hour Vital Signs Date Time Temp Pulse Resp B/P (MAP) Pulse Ox O2 Delivery O2 Flow Rate FiO2 05/30/20 20:00 2.0 05/30/20 16:00 2.0 05/30/20 16:00 60 05/30/20 16:00 98.2 69 20 136/57 (83) 97 05/30/20 16:00 Nasal Cannula 2.0 05/30/20 12:00 Nasal Cannula 2.0 05/30/20 12:00 2.0 05/30/20 12:00 97.0 64 20 120/58 (78) 97 66 05/30/20 12:00 65 05/30/20 08:00 Nasal Cannula 2.0 05/30/20 08:00 69 05/30/20 08:00 97.0 68 20 131/57 (81) 96 05/30/20 08:00 2.0 05/30/20 07:42 99 Nasal Cannula 4.0 36 05/30/20 04:00 96.8 72 18 114/46 (68) 96 05/30/20 04:00 2.0 05/30/20 04:00 Nasal Cannula 2.0 05/30/20 03:20 65 05/30/20 00:00 67 05/30/20 00:00 96.9 74 18 99/48 (65) 97 05/30/20 00:00 Nasal Cannula 2.0 05/30/20 00:00 2.0 05/29/20 21:43 95 Nasal Cannula 2.0 28 Intake and Output 05/29/20 05/30/20 19:00 07:00 Intake Total 880 ml 360 ml Balance 880 ml 360 ml Intake Oral 880 ml 360 ml # Voids 3 2 Laboratory Tests 05/30/20 03:50: White Blood Count 4.3L, Red Blood Count 2.35L, Hemoglobin 7.4L, Hematocrit 22.2L , Mean Corpuscular Volume 94, Mean Corpuscular Hemoglobin 31.6H, Mean C orpuscular Hemoglobin Concent 33.5, Red Cell Distribution Width 15.0H, Platelet Count 136L, Mean Platelet Volume 7.9, Neutrophils (%) (Auto) , Lymphocytes (%) (Auto) , Monocytes (%) (Auto) , Eosinophils (%) (Auto) , Basophils (%) (Auto) , Sodium Level 144, Potassium Level 3.2L, Chloride Level 108H, Carbon Dioxide Level 31, Anion Gap 6, Blood Urea Nitrogen 9, Creatinine 0.8, Estimat Glomerular Filtration Rate > 60, Glucose Level 86, Calcium Level 7.7L, Phosphorus Level 1.9L, Magnesium Level 1.9, Total Bilirubin 0.9, Aspartate Amino Transf (AST/SGOT) 13L, Alanine Aminotransferase (ALT/SGPT) 13, Alkaline Phosphatase 45L , Total Protein 6.1L, Albumin 2.4L, Globulin 3.7, Albumin/Globulin Ratio 0.6L, HIV (1&2) Antibody Rapid Negative Height (Feet): 5 Height (Inches): 3.00 Weight (Pounds): 183 Objective WDWN WW (+) FM O2 CTA RR abd soft no edema Assessment/Plan Status: progressing, unchanged Assessment/Plan: Assessment/Plan (1) Hypertension (2) Schizophrenia (3) Hyperlipidemia (4) Parkinson disease (5) Anemia (6) Obese (7) COVID (+) (8) Hypoxia Recommendations PPI BID Follow H&H Transfuse to keep Hg>7.0 po as tolerated GI procedures at a later date, if needed bowel regimen Aria Chicas MD May 30, 2020 21:33
--- NOTE | 2020-05-30 21:34 | General Progress Note ---
Subjective Allergies: Coded Allergies: LITHIUM (Verified Allergy, Unknown, 02/07/19) Subjective above noted Speech eval noted Objective Last 24 Hour Vital Signs Date Time Temp Pulse Resp B/P (MAP) Pulse Ox O2 Delivery O2 Flow Rate FiO2 05/30/20 20:00 2.0 05/30/20 16:00 2.0 05/30/20 16:00 60 05/30/20 16:00 98.2 69 20 136/57 (83) 97 05/30/20 16:00 Nasal Cannula 2.0 05/30/20 12:00 Nasal Cannula 2.0 05/30/20 12:00 2.0 05/30/20 12:00 97.0 64 20 120/58 (78) 97 66 05/30/20 12:00 65 05/30/20 08:00 Nasal Cannula 2.0 05/30/20 08:00 69 05/30/20 08:00 97.0 68 20 131/57 (81) 96 05/30/20 08:00 2.0 05/30/20 07:42 99 Nasal Cannula 4.0 36 05/30/20 04:00 96.8 72 18 114/46 (68) 96 05/30/20 04:00 2.0 05/30/20 04:00 Nasal Cannula 2.0 05/30/20 03:20 65 05/30/20 00:00 67 05/30/20 00:00 96.9 74 18 99/48 (65) 97 05/30/20 00:00 Nasal Cannula 2.0 05/30/20 00:00 2.0 05/29/20 21:43 95 Nasal Cannula 2.0 28 Intake and Output 05/29/20 05/30/20 19:00 07:00 Intake Total 880 ml 360 ml Balance 880 ml 360 ml Intake Oral 880 ml 360 ml # Voids 3 2 Laboratory Tests 05/30/20 03:50: White Blood Count 4.3L, Red Blood Count 2.35L, Hemoglobin 7.4L, Hematocrit 22.2L , Mean Corpuscular Volume 94, Mean Corpuscular Hemoglobin 31.6H, Mean Corpuscular Hemoglobin Concent 33.5, Red Cell Distribution Width 15.0H, Platelet Count 136L, Mean Platelet Volume 7.9, Neutrophils (%) (Auto) , Lymphocytes (%) (Auto) , Monocytes (%) (Auto) , Eosinophils (%) (Auto) , Basophils (%) (Auto) , Sodium Level 144, Potassium Level 3.2L, Chloride Level 108H, Carbon Dioxide Level 31, Anion Gap 6, Blood Urea Nitrogen 9, Creatinine 0.8, Estimat Glomerular Filtration Rate > 60, Glucose Level 86, Calcium Level 7.7L, Phosphorus Level 1.9L, Magnesium Level 1.9, Total Bilirubin 0.9, Aspartate Amino Transf (AST/SGOT) 13L, Alanine Aminotransferase (ALT/SGPT) 13, Alkaline Phosphatase 45L , Total Protein 6.1L, Albumin 2.4L, Globulin 3.7, Albumin/Globulin Ratio 0.6L, HIV (1&2) Antibody Rapid Negative Height (Feet): 5 Height (Inches): 3.00 Weight (Pounds): 183 Objective WDWN WW more calm today (+) FM O2 exam limited due to COVID isolation Assessment/Plan Status: progressing, unchanged Assessment/Plan: Assessment/Plan (1) Hypertension (2) Schizophrenia (3) Hyperlipidemia (4) Parkinson disease (5) Anemia (6) Obese (7) COVID (+) (8) Hypoxia Recommendations PPI BID Follow H&H Transfuse to keep Hg>7.0 po as tolerated - per ST rec GI procedures at a later date, if needed bowel regimen Aria Chicas MD May 30, 2020 21:34
--- NOTE | 2020-05-30 23:09 | Psychiatric Progress Note ---
Psychiatry Progress Note Psychiatry Progress Note Subjective the pt has waxing and waning o consciousness on restraints episodes agitation confused Medications Current Medications Medications (Trade) Dose Ordered Sig/Angie Route PRN Reason Start Time Stop Time Status Last Admin Dose Admin Acetaminophen (Tylenol) 650 mg Q6H PRN NG Fever >100.5 05/14/20 21:00 06/13/20 20:59 05/14/20 21:10 Acetaminophen (Tylenol) 650 mg Q6H PRN NG Mild Pain (Pain Scale 1-3) 05/14/20 21:00 06/13/20 20:59 05/17/20 11:06 Clonidine HCl (Catapres Tab) 0.1 mg Q4H PRN ORAL sbp>170 05/11/20 17:15 08/09/20 17:14 Docusate Sodium (Colace) 100 mg TWICE A DAY ORAL 05/25/20 18:00 06/24/20 17:59 05/30/20 18:29 Furosemide (Lasix) 40 mg EVERY 12 HOURS IV 05/30/20 09:30 06/29/20 09:29 05/30/20 20:23 Haloperidol Lactate (Haldol) 5 mg Q6H PRN IM Agitation 05/13/20 20:45 06/27/20 20:44 05/28/20 02:40 Heparin Sodium (Porcine) (Heparin 5000 units/ml) 5,000 units EVERY 12 HOURS SUBQ 05/25/20 21:00 07/09/20 20:59 05/28/20 21:09 Heparin Sodium/ Sodium Chloride (Heparin 1000 units/500ml Premix) 1,000 unit ONCE PRN INJ radiology use 05/30/20 13:15 06/02/20 13:14 Levothyroxine Sodium (Synthroid) 50 mcg DAILY@0630 ORAL 05/14/20 06:30 06/13/20 06:29 05/30/20 05:24 Lidocaine HCl (Xylocaine 1% 30ml) 30 ml ONCE PRN INJ radiology use 05/30/20 13:15 06/02/20 13:14 Pantoprazole (Protonix) 40 mg Q12HR ORAL 05/26/20 21:00 06/25/20 20:59 05/30/20 20:23 Polyethylene Glycol (Miralax) 17 gm BEDTIME ORAL 05/25/20 21:00 06/24/20 20:59 05/30/20 20:23 Potassium Chloride (K-Dur) 40 meq TWICE A DAY ORAL 05/29/20 10:30 08/27/20 10:29 05/30/20 18:29 Quetiapine Fumarate (SEROqueL) 50 mg Q12HR ORAL 05/24/20 21:00 07/08/20 20:59 05/30/20 20:23 Neurological/Psychiatric: Reports: anxiety, depressed, emotional problems Allergies: Coded Allergies: LITHIUM (Verified Allergy, Unknown, 02/07/19) Objective Data Height (Feet): 5 Height (Inches): 3.00 Weight (Pounds): 183 General Appearance: no apparent distress Additional Comments: waxing and waning consciousness. Disoriented. Mood is neutral to agitation. Affect is flat. Thought process, there is paucity of thought process. Thought content, no suicidal or homicidal ideation. Cognition is impaired. Insight and judgment is impaired. Assessment/Plan Dixon I: Dixon I Acute toxic encephalopathy. Schizophrenia. Dixon II Deferred. Dixon III COVID-19. Dixon IV Low. Dixon V 20 PLAN: 1. Discontinue the IV Haldol. 2. Start the patient on Haldol IM. 3. The patient benefits from bilateral soft restraints. 4. Provide the patient with reality orientation. 5. Discussed with the nurse. Status: progressing, unchanged Status Narrative Dixon I Acute toxic encephalopathy. Schizophrenia. Dixon II Deferred. Dixon III COVID-19. Dixon IV Low. Dixon V 20 PLAN: 1. Discontinue the IV Haldol. 2. Start the patient on Haldol IM. 3. The patient benefits from bilateral soft restraints. 4. Provide the patient with reality orientation. 5. Discussed with the nurse. Assessment/Plan: Dixon I Acute toxic encephalopathy. Schizophrenia. Dixon II Deferred. Dixon III COVID-19. Dixon IV Low. Dixon V 20 PLAN: 1. Discontinue the IV Haldol. 2. Start the patient on Haldol IM. 3. The patient benefits from bilateral soft restraints. 4. Provide the patient with reality orientation. 5. Discussed with the nurse. Kiana Hernandez MD May 30, 2020 23:09
[2020-05-31] VITALS: BP 145/60
[2020-05-31 04:00] VITALS: BP 130/47
[2020-05-31 04:41] LABS: BASOPHILS % (AUTO) 0.7 % (0.0-2.0); EOSINOPHILS % (AUTO) 0.8 % (0.0-3.0); HEMATOCRIT 25.3 % (37.0-47.0); HEMOGLOBIN 8.6 G/DL (12.0-16.0); LYMPHOCYTES % (AUTO) 15.9 % (20.0-45.0); MEAN CORPUSCULAR VOLUME 92 FL (80-99); MONOCYTES % (AUTO) 5.8 % (1.0-10.0); NEUTROPHILS % (AUTO) 76.7 % (45.0-75.0); PLATELET COUNT 133 K/UL (150-450); RED BLOOD COUNT 2.74 M/UL (4.20-5.40); RED CELL DISTRIBUTION WIDTH 14.9 % (11.6-14.8); WHITE BLOOD COUNT 4.8 K/UL (4.8-10.8)
[2020-05-31 05:12] LABS: ANION GAP 5 mmol/L (5-15); BLOOD UREA NITROGEN 11 mg/dL (7-18); CALCIUM 7.9 MG/DL (8.5-10.1); CARBON DIOXIDE 30 MMOL/L (21-32); CHLORIDE 110 MMOL/L (98-107); CREATININE 0.8 MG/DL (0.55-1.30); POTASSIUM 3.2 MMOL/L (3.5-5.1); SODIUM 145 MMOL/L (136-145)
[2020-05-31 08:00] VITALS: BP 125/42
[2020-05-31] MEDS: Heparin 5000 units/ml inj SUBQ SCH ×2 (09:20→20:56)
[2020-05-31] MEDS: Docusate 100mg cap ORAL SCH ×2 (09:25→17:41)
--- NOTE | 2020-05-31 09:52 | Diagnostic Imaging Report ---
EXAM: XR Chest, 1 View CLINICAL HISTORY: ABD TEND TECHNIQUE: Frontal view of the chest. COMPARISON: Chest radiograph May 30, 2020 FINDINGS/IMPRESSION: Left upper extremity PICC line terminates in the superior vena cava. Patchy bilateral airspace consolidations, consistent with multifocal infiltrate. These are similar in appearance to previous study from May 30, 2020. Stable, small bilateral pleural effusions. No pneumothorax. Cardiomegaly and calcified aorta. Degenerative changes of the spine.
[2020-05-31 12:00] VITALS: BP 126/54
--- NOTE | 2020-05-31 12:23 | Nephrology Progress Note ---
Assessment/Plan Problem List: (1) Renal failure (ARF), acute on chronic (2) Hypercapnic respiratory failure (3) CHF exacerbation (4) Anemia Assessment Azotemia/renal failure Acute respiratory failure most likely secondary to CHF, on mechanical ventilation History of COPD Hypertension Hyperlipemia Schizophrenia/psychosis Plan May 31: Labs reviewed. Abnormal electrolytes at rest. Hemoglobin higher. Discussed with DARREL Cooper. Continue per consultants. May 30: Lab reviewed. Potassium and phosphorus replaced. Hemoglobin higher after transfusion. Continue per consultants. May 29: Lab reviewed. Patient anemic. Electrolyte abnormalities reviewed and addressed. Continue per consultants. Remains stable from renal standpoint of view. May 28: Patient was not transfused despite of my order since yesterday. Will defer transfusion to PMD/gift wrapper. Patient remains stable from renal standpoint of view. Continue per consultants. Discussed with Marlene nursing charge in [place]. May 27: Remains on Venturi mask. Labs reviewed. Abnormal electrolytes addressed. Hemoglobin low. Will transfuse 1 unit of packed RBCs today May 26: On Venturi mask. Labs reviewed. Abnormal electrolytes addressed. Continue per consultants and pulmonary support. May 25: On Venturi mask. Lethargic. No labs drawn today. Will monitor renal parameters. Per orders. May 24: Remains extubated. Will start on diet with high alert for possible aspiration. Continue to monitor renal parameters. May 23: Continues to be extubated. On nonrebreathing mask. Labs reviewed. Renal parameters stable. Discussed with RN. Continue per current management. May 22: Now extubated on nonrebreathing mask. Labs reviewed. Renal parameters stable. Abnormal electrolytes addressed. Discussed with RN. May 21: Remains intubated. Labs reviewed. Abnormal electrolytes addressed. Discussed with RN. May 20: Remains intubated. Abnormal electrolyte noted on today's lab results and addressed. Continue per consultants. May 19: Patient remains intubated. Labs reviewed. Abnormal electrolytes addressed. Continue per current management. May 18: Patient seen in ICU. Remains intubated. Weaning is being tried. Discussed with RN. Labs reviewed. Abnormal electrolyte addressed. Continue per consultants. May 17: Labs reviewed. Remains intubated. Stable from renal standpoint of view. Continue weaning. Discussed with RN. May 16: Labs reviewed. Remains intubated. Remains full code. Stable from renal standpoint of view. Abnormal electrolytes addressed. May 15: Labs reviewed. Renal parameters stable. Discussed with RN. Patient remains intubated on ventilator and full code. Continue per consultants. May 14: Labs reviewed. Discussed with RN. Abnormal electrolyte addressed. Continue per current management. Patient seen in ICU. Discussed with RN. Today's labs pending. Patient remains on 6 mics of dopamine. Pulmonary support Monitor intake and output Monitor electrolytes Continue per consultants Per orders Subjective ROS Limited/Unobtainable: No Constitutional: Reports: malaise, weakness Objective Objective Last 24 Hour Vital Signs Date Time Temp Pulse Resp B/P (MAP) Pulse Ox O2 Delivery O2 Flow Rate FiO2 05/31/20 08:00 5.0 05/31/20 08:00 72 05/31/20 08:00 97.7 63 21 125/42 (69) 93 05/31/20 08:00 Nasal Cannula 5.0 05/31/20 04:00 97.9 68 32 130/47 (74) 94 05/31/20 04:00 15.0 05/31/20 04:00 Non-Rebreather 15.0 05/31/20 04:00 63 05/31/20 01:25 93 Venturi Mask 14.0 55 05/31/20 00:00 Nasal Cannula 2.0 05/31/20 00:00 97.6 70 24 145/60 (88) 94 05/31/20 00:00 2.0 05/31/20 00:00 48 05/30/20 20:00 2.0 05/30/20 20:00 97.5 69 24 148/82 (104) 96 05/30/20 20:00 Nasal Cannula 2.0 05/30/20 20:00 67 05/30/20 19:00 96 Nasal Cannula 4.0 36 05/30/20 16:00 2.0 05/30/20 16:00 60 05/30/20 16:00 98.2 69 20 136/57 (83) 97 05/30/20 16:00 Nasal Cannula 2.0 Intake and Output 05/30/20 05/31/20 19:00 07:00 Intake Total 720 ml 350 ml Balance 720 ml 350 ml Intake Oral 720 ml 100 ml Blood Product 250 ml # Voids 3 2 # Bowel Movements 1 Laboratory Tests 05/31/20 01:53: Arterial Blood pH 7.365, Arterial Blood Partial Pressure CO2 51.8H, Arterial B lood Partial Pressure O2 68.8L, Arterial Blood HCO3 28.9H, Arterial Blood Oxygen Saturation 91.7L, Arterial Blood Base Excess 3.0H, Raphael Test Positive 05/31/20 04:00: White Blood Count 4.8, Red Blood Count 2.74L, Hemoglobin 8.6L, Hematocrit 25.3L, Mean Corpuscular Volume 92, Mean Corpuscular Hemoglobin 31.3H, Mean Corpuscular Hemoglobin Concent 33.9, Red Cell Distribution Width 14.9H, Platelet Count 133L, Mean Platelet Volume 7.8, Neutrophils (%) (Auto) 76.7H, Lymphocytes (%) (Auto) 15.9L, Monocytes (%) (Auto) 5.8, Eosinophils (%) (Auto) 0.8, Basophils (%) (Auto) 0.7, Sodium Level 145, Potassium Level 3.2L, Chloride Level 110H, Carbon Dioxide Level 30, Anion Gap 5, Blood Urea Nitrogen 11, Creatinine 0.8, Estimat Glomerular Filtration Rate > 60, Glucose Level 141H, Calcium Level 7.9L Height (Feet): 5 Height (Inches): 3.00 Weight (Pounds): 183 General Appearance: no apparent distress EENT: other - On nasal cannula Cardiovascular: normal rate Respiratory/Chest: decreased breath sounds Abdomen: distended Bryan Ochoa MD May 31, 2020 12:23
--- NOTE | 2020-05-31 14:09 | General Progress Note ---
Subjective Allergies: Coded Allergies: LITHIUM (Verified Allergy, Unknown, 02/07/19) Subjective above noted d/w RN doing better no melena or hematochezia on NC 02 more comfortable Objective Last 24 Hour Vital Signs Date Time Temp Pulse Resp B/P (MAP) Pulse Ox O2 Delivery O2 Flow Rate FiO2 05/31/20 12:00 5.0 05/31/20 12:00 107 05/31/20 12:00 97.8 90 22 126/54 (78) 92 05/31/20 12:00 Nasal Cannula 5.0 05/31/20 08:00 5.0 05/31/20 08:00 72 05/31/20 08:00 97.7 63 21 125/42 (69) 93 05/31/20 08:00 Nasal Cannula 5.0 05/31/20 04:00 97.9 68 32 130/47 (74) 94 05/31/20 04:00 15.0 05/31/20 04:00 Non-Rebreather 15.0 05/31/20 04:00 63 05/31/20 01:25 93 Venturi Mask 14.0 55 05/31/20 00:00 Nasal Cannula 2.0 05/31/20 00:00 97.6 70 24 145/60 (88) 94 05/31/20 00:00 2.0 05/31/20 00:00 48 05/30/20 20:00 2.0 05/30/20 20:00 97.5 69 24 148/82 (104) 96 05/30/20 20:00 Nasal Cannula 2.0 05/30/20 20:00 67 05/30/20 19:00 96 Nasal Cannula 4.0 36 05/30/20 16:00 2.0 05/30/20 16:00 60 05/30/20 16:00 98.2 69 20 136/57 (83) 97 05/30/20 16:00 Nasal Cannula 2.0 Intake and Output 05/30/20 05/31/20 19:00 07:00 Intake Total 720 ml 350 ml Balance 720 ml 350 ml Intake Oral 720 ml 100 ml Blood Product 250 ml # Voids 3 2 # Bowel Movements 1 Laboratory Tests 05/31/20 01:53: Arterial Blood pH 7.365, Arterial Blood Partial Pressure CO2 51.8H, Arterial Blood Partial Pressure O2 68.8L, Arterial Blood HCO3 28.9H, Arterial Blood Oxygen Saturation 91.7L, Arterial Blood Base Excess 3.0H, Raphael Test Positive 05/31/20 04:00: White Blood Count 4.8, Red Blood Count 2.74L, Hemoglobin 8.6L, Hematocrit 25.3L, Mean Corpuscular Volume 92, Mean Corpuscular Hemoglobin 31.3H, Mean Corpuscular Hemoglobin Concent 33.9, Red Cell Distribution Width 14.9H, Platelet Count 133L, Mean Platelet Volume 7.8, Neutrophils (%) (Auto) 76.7H, Lymphocytes (%) (Auto) 15.9L, Monocytes (%) (Auto) 5.8, Eosinophils (%) (Auto) 0.8, Basophils (%) (Auto) 0.7, Sodium Level 145, Potassium Level 3.2L, Chloride Level 110H, Carbon Dioxide Level 30, Anion Gap 5, Blood Urea Nitrogen 11, Creatinine 0.8, Estimat Glomerular Filtration Rate > 60, Glucose Level 141H, Calcium Level 7.9L Height (Feet): 5 Height (Inches): 3.00 Weight (Pounds): 183 Objective WDWN WW more calm today NCAT supple CTA RR abd soft ND NT no edema non focal Assessment/Plan Status: progressing, unchanged Assessment/Plan: Assessment/Plan (1) Hypertension (2) Schizophrenia (3) Hyperlipidemia (4) Parkinson disease (5) Anemia (6) Obese (7) COVID (+) (8) Hypoxia Recommendations PPI BID Follow H&H Transfuse to keep Hg>7.0 po as tolerated - per ST rec GI procedures at a later date, if needed bowel regimen Aria Chicas MD May 31, 2020 14:09
--- NOTE | 2020-05-31 15:26 | Pulmonology Progress Note ---
Subjective ROS Limited/Unobtainable: Yes Interval Events: 3-10 seconds of asystoles overnight per nursing; Dr. Davies following Constitutional: Denies: fever HEENT: Repors: no symptoms Respiratory: Reports: no symptoms Cardiovascular: Reports: no symptoms Gastrointestinal/Abdominal: Reports: no symptoms Genitourinary: Reports: no symptoms Allergies: Coded Allergies: LITHIUM (Verified Allergy, Unknown, 02/07/19) Objective Last 24 Hour Vital Signs Date Time Temp Pulse Resp B/P (MAP) Pulse Ox O2 Delivery O2 Flow Rate FiO2 05/31/20 12:00 5.0 05/31/20 12:00 107 05/31/20 12:00 97.8 90 22 126/54 (78) 92 05/31/20 12:00 Nasal Cannula 5.0 05/31/20 08:00 5.0 05/31/20 08:00 72 05/31/20 08:00 97.7 63 21 125/42 (69) 93 05/31/20 08:00 Nasal Cannula 5.0 05/31/20 04:00 97.9 68 32 130/47 (74) 94 05/31/20 04:00 15.0 05/31/20 04:00 Non-Rebreather 15.0 05/31/20 04:00 63 05/31/20 01:25 93 Venturi Mask 14.0 55 05/31/20 00:00 Nasal Cannula 2.0 05/31/20 00:00 97.6 70 24 145/60 (88) 94 05/31/20 00:00 2.0 05/31/20 00:00 48 05/30/20 20:00 2.0 05/30/20 20:00 97.5 69 24 148/82 (104) 96 05/30/20 20:00 Nasal Cannula 2.0 05/30/20 20:00 67 05/30/20 19:00 96 Nasal Cannula 4.0 36 05/30/20 16:00 2.0 05/30/20 16:00 60 05/30/20 16:00 98.2 69 20 136/57 (83) 97 05/30/20 16:00 Nasal Cannula 2.0 Intake and Output 05/30/20 05/31/20 19:00 07:00 Intake Total 720 ml 350 ml Balance 720 ml 350 ml Intake Oral 720 ml 100 ml Blood Product 250 ml # Voids 3 2 # Bowel Movements 1 Objective 05/31 now on Venturi mask saturating well 05/29/2020 now on 2 lpm NC saturating at 97%; in transfusion 05/28/2020 in SDU; currently on Venturi mask 14L FiO2 14L saturating well 05/27/2020 in SDU; s/p failed attempt at switching to NC due to patient noncompliance; currently saturating low-mid 90s when she is actually on Venturi mask 14L 05/26/2020 in SDU; keeps taking off her NRB and desats to 79-80% 05/24/2020 in ICUD; restless, saturating ok with NC 05/19/2020 Pt in ICU; full code General Appearance: no acute distress HEENT: normocephalic Respiratory: no respiratory distress, decreased breath sounds Cardiovascular: normal rate Abdomen: soft, non tender, other - obese, NG tube Extremities: other - b/l 2+ pitting edema Neurologic: disoriented Laboratory Tests 05/31/20 01:53: Arterial Blood pH 7.365, Arterial Blood Partial Pressure CO2 51.8H, Arterial Blood Partial Pressure O2 68.8L, Arterial Blood HCO3 28.9H, Arterial Blood Oxyge n Saturation 91.7L, Arterial Blood Base Excess 3.0H, Raphael Test Positive 05/31/20 04:00: White Blood Count 4.8, Red Blood Count 2.74L, Hemoglobin 8.6L, Hematocrit 25.3L, Mean Corpuscular Volume 92, Mean Corpuscular Hemoglobin 31.3H, Mean Corpuscular Hemoglobin Concent 33.9, Red Cell Distribution Width 14.9H, Platelet Count 133L, Mean Platelet Volume 7.8, Neutrophils (%) (Auto) 76.7H, Lymphocytes (%) (Auto) 15.9L, Monocytes (%) (Auto) 5.8, Eosinophils (%) (Auto) 0.8, Basophils (%) (Auto) 0.7, Sodium Level 145, Potassium Level 3.2L, Chloride Level 110H, Carbon Dioxide Level 30, Anion Gap 5, Blood Urea Nitrogen 11, Creatinine 0.8, Estimat Glomerular Filtration Rate > 60, Glucose Level 141H, Calcium Level 7.9L Current Medications Medications (Trade) Dose Ordered Sig/Angie Route PRN Reason Start Time Stop Time Status Last Admin Dose Admin Acetaminophen (Tylenol) 650 mg Q6H PRN NG Fever >100.5 05/14/20 21:00 06/13/20 20:59 05/14/20 21:10 Acetaminophen (Tylenol) 650 mg Q6H PRN NG Mild Pain (Pain Scale 1-3) 05/14/20 21:00 06/13/20 20:59 05/17/20 11:06 Chlorhexidine Gluconate (Ruba-Hex 2%) 1 applic DAILY@2000 TOPIC 05/31/20 20:00 08/29/20 19:59 Clonidine HCl (Catapres Tab) 0.1 mg Q4H PRN ORAL sbp>170 05/11/20 17:15 08/09/20 17:14 Docusate Sodium (Colace) 100 mg TWICE A DAY ORAL 05/25/20 18:00 06/24/20 17:59 05/31/20 09:25 Furosemide (Lasix) 40 mg EVERY 12 HOURS IV 05/30/20 09:30 06/29/20 09:29 05/31/20 09:26 Haloperidol Lactate (Haldol) 5 mg Q6H PRN IM Agitation 05/13/20 20:45 06/27/20 20:44 05/28/20 02:40 Heparin Sodium (Porcine) (Heparin 5000 units/ml) 5,000 units EVERY 12 HOURS SUBQ 05/25/20 21:00 07/09/20 20:59 05/31/20 09:20 Heparin Sodium/ Sodium Chloride (Heparin 1000 units/500ml Premix) 1,000 unit ONCE PRN INJ radiology use 05/30/20 13:15 06/02/20 13:14 Levothyroxine Sodium (Synthroid) 50 mcg DAILY@0630 ORAL 05/14/20 06:30 06/13/20 06:29 05/30/20 05:24 Lidocaine HCl (Xylocaine 1% 30ml) 30 ml ONCE PRN INJ radiology use 05/30/20 13:15 06/02/20 13:14 Pantoprazole (Protonix) 40 mg Q12HR ORAL 05/26/20 21:00 06/25/20 20:59 05/31/20 09:25 Polyethylene Glycol (Miralax) 17 gm BEDTIME ORAL 05/25/20 21:00 06/24/20 20:59 05/30/20 20:23 Potassium Chloride (K-Dur) 40 meq TWICE A DAY ORAL 05/29/20 10:30 08/27/20 10:29 05/31/20 09:26 Quetiapine Fumarate (SEROqueL) 50 mg Q12HR ORAL 05/24/20 21:00 07/08/20 20:59 05/31/20 09:25 Assessment/Plan Assessment/Plan 1. Bilateral COVID-19 multilobar pneumonia. - s/p ETT - Afebrile - s/p Azithromycin, Ceftriaxone, dexamethasone - s/p remdesivir - CXR 05/31 Patchy bilateral airspace consolidations, consistent with multifocal infiltrate, similar in appearance to previous study from 05/30; Stable, small bilateral pleural effusions. 2. Hx of COPD. 3. Schizophrenia/psychosis - On haloperidol per Dr. Hernandez 4. Hypoxia. - on Venturi mask, desats to 79-80% when she contantly takes her mask off, s/p self extubation - s/p 5 lpm NC; pt noncompliance - keep her on venturi mask, while maintaining good seal around the mask; currently on nasal O2 - on LAsix 40 mg IV BID -CXR better after diuresis 5. Anemia DVT ppx The care for this patient was discussed with my supervising physician Time spent for this case was 31 minutes Trae Avilez May 31, 2020 15:25 Sincere Myers MD May 31, 2020 16:39
[2020-05-31 16:00] VITALS: BP 127/56
--- NOTE | 2020-05-31 17:20 | Cardiac Electrophysiology PN ---
Assessment/Plan Assessment/Plan 1. Covid PNA and respiratory failure. S/P Remdesevir and Dexamethasone Self extubated on 2 liter nasal cannula. 97% sat off venturi Mask Off Abx per ID 2. SSS with 4 pauses of 3,4,7 and 10 seconds off any QUEZADA or AVN blockers. Will need pacer consent from conservator and ID clearance 3. Hypotension. Off Dopamine. EF 55% 4. Schizophrenia and psychosis. YOSELYN RN Subjective Subjective Self extubated on 05/22/20 on 2 liter NC in Covid isolation S/P Left arm PICC line placement as has no iv access. Got iv K and MG Had multiple pauses of more than 3 seconds including a 4s and 7s and a 10 second pause at 1 AM. Objective Last 24 Hour Vital Signs Date Time Temp Pulse Resp B/P (MAP) Pulse Ox O2 Delivery O2 Flow Rate FiO2 05/31/20 12:00 5.0 05/31/20 12:00 107 05/31/20 12:00 97.8 90 22 126/54 (78) 92 05/31/20 12:00 Nasal Cannula 5.0 05/31/20 08:00 5.0 05/31/20 08:00 72 05/31/20 08:00 97.7 63 21 125/42 (69) 93 05/31/20 08:00 Nasal Cannula 5.0 05/31/20 04:00 97.9 68 32 130/47 (74) 94 05/31/20 04:00 15.0 05/31/20 04:00 Non-Rebreather 15.0 05/31/20 04:00 63 05/31/20 01:25 93 Venturi Mask 14.0 55 05/31/20 00:00 Nasal Cannula 2.0 05/31/20 00:00 97.6 70 24 145/60 (88) 94 05/31/20 00:00 2.0 05/31/20 00:00 48 05/30/20 20:00 2.0 05/30/20 20:00 97.5 69 24 148/82 (104) 96 05/30/20 20:00 Nasal Cannula 2.0 05/30/20 20:00 67 05/30/20 19:00 96 Nasal Cannula 4.0 36 Intake and Output 05/30/20 05/31/20 19:00 07:00 Intake Total 720 ml 350 ml Balance 720 ml 350 ml Intake Oral 720 ml 100 ml Blood Product 250 ml # Voids 3 2 # Bowel Movements 1 Laboratory Tests Test 05/31/20 01:53 05/31/20 04:00 Arterial Blood pH 7.365 (7.350-7.450) Arterial Blood Partial Pressure CO2 51.8 mmHg (35.0-45.0) H Arterial Blood Partial Pressure O2 68.8 mmHg (75.0-100.0) L Arterial Blood HCO3 28.9 mmol/L (22.0-26.0) H Arterial Blood Oxygen Saturation 91.7 % (95-100) L Arterial Blood Base Excess 3.0 (-2-2) H Raphael Test Positive White Blood Count 4.8 K/UL (4.8-10.8) Red Blood Count 2.74 M/UL (4.20-5.40) L Hemoglobin 8.6 G/DL (12.0-16.0) L Hematocrit 25.3 % (37.0-47.0) L Mean Corpuscular Volume 92 FL (80-99) Mean Corpuscular Hemoglobin 31.3 PG (27.0-31.0) H Mean Corpuscular Hemoglobin Concent 33.9 G/DL (32.0-36.0) Red Cell Distribution Width 14.9 % (11.6-14.8) H Platelet Count 133 K/UL (150-450) L Mean Platelet Volume 7.8 FL (6.5-10.1) Neutrophils (%) (Auto) 76.7 % (45.0-75.0) H Lymphocytes (%) (Auto) 15.9 % (20.0-45.0) L Monocytes (%) (Auto) 5.8 % (1.0-10.0) Eosinophils (%) (Auto) 0.8 % (0.0-3.0) Basophils (%) (Auto) 0.7 % (0.0-2.0) Sodium Level 145 MMOL/L (136-145) Potassium Level 3.2 MMOL/L (3.5-5.1) L Chloride Level 110 MMOL/L (98-107) H Carbon Dioxide Level 30 MMOL/L (21-32) Anion Gap 5 mmol/L (5-15) Blood Urea Nitrogen 11 mg/dL (7-18) Creatinine 0.8 MG/DL (0.55-1.30) Estimat Glomerular Filtration Rate > 60 mL/min (>60) Glucose Level 141 MG/DL (74-106) H Calcium Level 7.9 MG/DL (8.5-10.1) L Objective HEAD AND NECK: Positive JVD. LUNGS: Decreased breath sounds. CARDIOVASCULAR: Regular S1 and S2 with no gallop. ABDOMEN: Obese. EXTREMITIES: Bilateral 2+ pitting edema. Cameron Davies MD May 31, 2020 17:20
--- NOTE | 2020-05-31 18:04 | Surgery Progress Note ---
Surgery Progress Note Subjective Additional Comments cardiac dysrhythmia asystole no n/v labs noted picc in Objective Last 24 Hour Vital Signs Date Time Temp Pulse Resp B/P (MAP) Pulse Ox O2 Delivery O2 Flow Rate FiO2 05/31/20 12:00 5.0 05/31/20 12:00 107 05/31/20 12:00 97.8 90 22 126/54 (78) 92 05/31/20 12:00 Nasal Cannula 5.0 05/31/20 08:00 5.0 05/31/20 08:00 72 05/31/20 08:00 97.7 63 21 125/42 (69) 93 05/31/20 08:00 Nasal Cannula 5.0 05/31/20 04:00 97.9 68 32 130/47 (74) 94 05/31/20 04:00 15.0 05/31/20 04:00 Non-Rebreather 15.0 05/31/20 04:00 63 05/31/20 01:25 93 Venturi Mask 14.0 55 05/31/20 00:00 Nasal Cannula 2.0 05/31/20 00:00 97.6 70 24 145/60 (88) 94 05/31/20 00:00 2.0 05/31/20 00:00 48 05/30/20 20:00 2.0 05/30/20 20:00 97.5 69 24 148/82 (104) 96 05/30/20 20:00 Nasal Cannula 2.0 05/30/20 20:00 67 05/30/20 19:00 96 Nasal Cannula 4.0 36 I&O Intake and Output 05/30/20 05/31/20 19:00 07:00 Intake Total 720 ml 350 ml Balance 720 ml 350 ml Intake Oral 720 ml 100 ml Blood Product 250 ml # Voids 3 2 # Bowel Movements 1 Dressing: other Cardiovascular: RSR Respiratory: decreased breath sounds Abdomen: soft, non-tender, present bowel sounds Extremities: edema, no tenderness, no cyanosis Laboratory Tests Test 05/31/20 01:53 05/31/20 04:00 Arterial Blood pH 7.365 (7.350-7.450) Arterial Blood Partial Pressure CO2 51.8 mmHg (35.0-45.0) H Arterial Blood Partial Pressure O2 68.8 mmHg (75.0-100.0) L Arterial Blood HCO3 28.9 mmol/L (22.0-26.0) H Arterial Blood Oxygen Saturation 91.7 % (95-100) L Arterial Blood Base Excess 3.0 (-2-2) H Raphael Test Positive White Blood Count 4.8 K/UL (4.8-10.8) Red Blood Count 2.74 M/UL (4.20-5.40) L Hemoglobin 8.6 G/DL (12.0-16.0) L Hematocrit 25.3 % (37.0-47.0) L Mean Corpuscular Volume 92 FL (80-99) Mean Corpuscular Hemoglobin 31.3 PG (27.0-31.0) H Mean Corpuscular Hemoglobin Concent 33.9 G/DL (32.0-36.0) Red Cell Distribution Width 14.9 % (11.6-14.8) H Platelet Count 133 K/UL (150-450) L Mean Platelet Volume 7.8 FL (6.5-10.1) Neutrophils (%) (Auto) 76.7 % (45.0-75.0) H Lymphocytes (%) (Auto) 15.9 % (20.0-45.0) L Monocytes (%) (Auto) 5.8 % (1.0-10.0) Eosinophils (%) (Auto) 0.8 % (0.0-3.0) Basophils (%) (Auto) 0.7 % (0.0-2.0) Sodium Level 145 MMOL/L (136-145) Potassium Level 3.2 MMOL/L (3.5-5.1) L Chloride Level 110 MMOL/L (98-107) H Carbon Dioxide Level 30 MMOL/L (21-32) Anion Gap 5 mmol/L (5-15) Blood Urea Nitrogen 11 mg/dL (7-18) Creatinine 0.8 MG/DL (0.55-1.30) Estimat Glomerular Filtration Rate > 60 mL/min (>60) Glucose Level 141 MG/DL (74-106) H Calcium Level 7.9 MG/DL (8.5-10.1) L Plan Problems: (1) Anemia (2) Hypercapnic respiratory failure Assessment & Plan: respiratory insufficiency requiring prolonged ventilatory support unable to wean vent safely after multiple attempts discussed with pcp. discussed with pulm discussed with patient guardian. patient unable to consent. no nok or poa. gi guillermo critical care and condition not recommended to await court decision which during pandemic can take long time. medically necessary to proceed with trach in patients best interest. 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
[2020-05-31 20:00] VITALS: BP 139/59
[2020-05-31] MEDS: Dyna-Hex 2% Top Sol 2oz TOPIC SCH (20:55)
[2020-05-31] MEDS: Miralax 17gm pkt ORAL SCH (20:56)
--- NOTE | 2020-05-31 21:07 | General Progress Note ---
Subjective ROS Limited/Unobtainable: Yes Allergies: Coded Allergies: LITHIUM (Verified Allergy, Unknown, 02/07/19) Objective Last 24 Hour Vital Signs Date Time Temp Pulse Resp B/P (MAP) Pulse Ox O2 Delivery O2 Flow Rate FiO2 05/31/20 16:00 70 05/31/20 16:00 5.0 05/31/20 16:00 98.2 70 24 127/56 (79) 91 05/31/20 16:00 Nasal Cannula 5.0 05/31/20 12:00 5.0 05/31/20 12:00 107 05/31/20 12:00 97.8 90 22 126/54 (78) 92 05/31/20 12:00 Nasal Cannula 5.0 05/31/20 08:00 5.0 05/31/20 08:00 72 05/31/20 08:00 97.7 63 21 125/42 (69) 93 05/31/20 08:00 Nasal Cannula 5.0 05/31/20 04:00 97.9 68 32 130/47 (74) 94 05/31/20 04:00 15.0 05/31/20 04:00 Non-Rebreather 15.0 05/31/20 04:00 63 05/31/20 01:25 93 Venturi Mask 14.0 55 05/31/20 00:00 Nasal Cannula 2.0 05/31/20 00:00 97.6 70 24 145/60 (88) 94 05/31/20 00:00 2.0 05/31/20 00:00 48 Intake and Output 05/30/20 05/31/20 19:00 07:00 Intake Total 720 ml 350 ml Balance 720 ml 350 ml Intake Oral 720 ml 100 ml Blood Product 250 ml # Voids 3 2 # Bowel Movements 1 Laboratory Tests 05/31/20 01:53: Arterial Blood pH 7.365, Arterial Blood Partial Pressure CO2 51.8H, Arterial Blood Partial Pressure O2 68.8L, Arterial Blood HCO3 28.9H, Arterial Blood Oxygen Saturation 91.7L, Arterial Blood Base Excess 3.0H, Raphael Test Positive 05/31/20 04:00: White Blood Count 4.8, Red Blood Count 2.74L, Hemoglobin 8.6L, Hematocrit 25.3L, Mean Corpuscular Volume 92, Mean Corpuscular Hemoglobin 31.3H, Mean Corpuscular Hemoglobin Concent 33.9, Red Cell Distribution Width 14.9H, Platelet Count 133L, Mean Platelet Volume 7.8, Neutrophils (%) (Auto) 76.7H, Lymphocytes (%) (Auto) 15.9L, Monocytes (%) (Auto) 5.8, Eosinophils (%) (Auto) 0.8, Basophils (%) (Auto) 0.7, Sodium Level 145, Potassium Level 3.2L, Chloride Level 110H, Carbon Dioxide Level 30, Anion Gap 5, Blood Urea Nitrogen 11, Creatinine 0.8, Estimat Glomerular Filtration Rate > 60, Glucose Level 141H, Calcium Level 7.9L Height (Feet): 5 Height (Inches): 3.00 Weight (Pounds): 183 Assessment/Plan Problem List: (1) Anemia ICD Codes: D64.9 - Anemia, unspecified SNOMED: 744919217 (2) Hypercapnic respiratory failure ICD Codes: J96.92 - Respiratory failure, unspecified with hypercapnia SNOMED: 954461559 (3) COVID-19 ICD Codes: U07.1 - COVID-19 SNOMED: 950292818 (4) COPD (chronic obstructive pulmonary disease) ICD Codes: J44.9 - Chronic obstructive pulmonary disease, unspecified SNOMED: 88650052 (5) Psychosis ICD Codes: F29 - Unspecified psychosis not due to a substance or known physiological condition SNOMED: 10232451 (6) Hypoxia ICD Codes: R09.02 - Hypoxemia SNOMED: 009188760 (7) Renal failure (ARF), acute on chronic ICD Codes: N17.9 - Acute kidney failure, unspecified; N18.9 - Chronic kidney disease, unspecified SNOMED: 063049601 (8) CHF exacerbation ICD Codes: I50.9 - Heart failure, unspecified SNOMED: 555840285, [id number] Status: progressing, unchanged, deteriorating Assessment/Plan: s/p severe laney dr pichardo was notified blood transfusion was stopped dr lebron was notified covid positive pna sepsis copd exac chf exac Dani Perera MD May 31, 2020 21:07
[2020-06-01] VITALS: BP 140/55
[2020-06-01 04:00] VITALS: BP 131/49
[2020-06-01 06:47] LABS: ALANINE AMINOTRANSFERASE 11 U/L (12-78); ALBUMIN 2.7 G/DL (3.4-5.0); ALBUMIN/GLOBULIN RATIO 0.7 (1.0-2.7); ALKALINE PHOSPHATASE 51 U/L (46-116); ANION GAP 3 mmol/L (5-15); ASPARTATE AMINO TRANSFERASE 17 U/L (15-37); BILIRUBIN,TOTAL 0.7 MG/DL (0.2-1.0); BLOOD UREA NITROGEN 10 mg/dL (7-18); CALCIUM 7.8 MG/DL (8.5-10.1); CARBON DIOXIDE 35 MMOL/L (21-32); CHLORIDE 107 MMOL/L (98-107); CREATININE 0.9 MG/DL (0.55-1.30); POTASSIUM 4.1 MMOL/L (3.5-5.1); SODIUM 145 MMOL/L (136-145)
[2020-06-01 08:00] VITALS: BP 124/84
[2020-06-01] MEDS: Docusate 100mg cap ORAL SCH ×2 (08:13→18:08)
[2020-06-01] MEDS: Heparin 5000 units/ml inj SUBQ SCH ×2 (08:13→21:18)
--- NOTE | 2020-06-01 08:51 | Hematology/Onc Progress Note ---
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 ( combination of moderate aortic regurgitation and severe mitral regurgitation) --> diuresis as per cards --> lasix last time # Severe ascending aortic dilatation --> per cards, Dr Davies # Hypertension # Parkinson disease # Hyperlipidemia # Hypothyroidism # Dementia # Obesity # Schizophrenia --> as per [facility] --> restraints # Dvt ppx heparin sq Appreciate content management consultant care and alexei Rn Subjective Cardiovascular: Denies: no symptoms, chest pain, edema, irregular heart rate, lightheadedness, palpitations, syncope, other Respiratory: Denies: no symptoms, cough, shortness of breath, SOB with excertion, SOB at rest, sputum, wheezing, other Gastrointestinal/Abdominal: Denies: no symptoms, abdomen distended, abdominal pain, black stools, tarry stools, blood in stool, constipated, diarrhea, d ifficulty swallowing, nausea, poor appetite, poor fluid intake, rectal bleeding, vomiting, other Genitourinary: Denies: no symptoms, burning, discharge, frequency, flank pain, hematuria, incontinence, pain, urgency, other Neurologic/Psychiatric: Denies: no symptoms, anxiety, depressed, emotional problems, headache, numbness, paresthesia, pre-existing deficit, seizure, tingling, tremors, weakness, other Endocrine: Denies: no symptoms, excessive sweating, flushing, intolerance to cold, intolerance to heat, increased hunger, increased thirst, increased urine, unexplained weight gain, unexplained weight loss, other Hematologic/Lymphatic: Denies: no symptoms, anemia, easy bleeding, easy bruising, adenopathy, other Allergies: Coded Allergies: LITHIUM (Verified Allergy, Unknown, 02/07/19) Subjective 06/01 nonrebreather, 15L, some mild pain in back, chest, no night sweats Objective Objective Current Medications Medications (Trade) Dose Ordered Sig/Angie Route PRN Reason Start Time Stop Time Status Last Admin Dose Admin Acetaminophen (Tylenol) 650 mg Q6H PRN NG Fever >100.5 05/14/20 21:00 06/13/20 20:59 05/14/20 21:10 Acetaminophen (Tylenol) 650 mg Q6H PRN NG Mild Pain (Pain Scale 1-3) 05/14/20 21:00 06/13/20 20:59 05/17/20 11:06 Chlorhexidine Gluconate (Ruba-Hex 2%) 1 applic DAILY@1999 TOPIC 05/31/20 20:00 08/29/20 19:59 05/31/20 20:55 Clonidine HCl (Catapres Tab) 0.1 mg Q4H PRN ORAL sbp>170 05/11/20 17:15 08/09/20 17:14 Docusate Sodium (Colace) 100 mg TWICE A DAY ORAL 05/25/20 18:00 06/24/20 17:59 06/01/20 08:13 Furosemide (Lasix) 40 mg EVERY 12 HOURS IV 05/30/20 09:30 06/29/20 09:29 06/01/20 08:13 Haloperidol Lactate (Haldol) 5 mg Q6H PRN IM Agitation 05/13/20 20:45 06/27/20 20:44 05/28/20 02:40 Heparin Sodium (Porcine) (Heparin 5000 units/ml) 5,000 units EVERY 12 HOURS SUBQ 05/25/20 21:00 07/09/20 20:59 05/31/20 20:56 Heparin Sodium/ Sodium Chloride (Heparin 1000 units/500ml Premix) 1,000 unit ONCE PRN INJ radiology use 05/30/20 13:15 06/02/20 13:14 Levothyroxine Sodium (Synthroid) 50 mcg DAILY@0630 ORAL 05/14/20 06:30 06/13/20 06:29 06/01/20 06:16 Lidocaine HCl (Xylocaine 1% 30ml) 30 ml ONCE PRN INJ radiology use 05/30/20 13:15 06/02/20 13:14 Pantoprazole (Protonix) 40 mg Q12HR ORAL 05/26/20 21:00 06/25/20 20:59 06/01/20 08:12 Polyethylene Glycol (Miralax) 17 gm BEDTIME ORAL 05/25/20 21:00 06/24/20 20:59 05/31/20 20:56 Potassium Chloride (K-Dur) 40 meq TWICE A DAY ORAL 05/29/20 10:30 08/27/20 10:29 06/01/20 08:12 Quetiapine Fumarate (SEROqueL) 50 mg Q12HR ORAL 05/24/20 21:00 07/08/20 20:59 06/01/20 08:13 Last 24 Hour Vital Signs Date Time Temp Pulse Resp B/P (MAP) Pulse Ox O2 Delivery O2 Flow Rate FiO2 06/01/20 04:00 98.4 61 25 131/49 (76) 100 06/01/20 04:00 15.0 06/01/20 04:00 Non-Rebreather 15.0 06/01/20 04:00 61 06/01/20 00:00 61 06/01/20 00:00 98.0 63 26 140/55 (83) 100 06/01/20 00:00 15.0 06/01/20 00:00 Non-Rebreather 15.0 05/31/20 20:00 15.0 05/31/20 20:00 5.0 05/31/20 20:00 Non-Rebreather 15.0 05/31/20 20:00 97.9 65 23 139/59 (85) 100 05/31/20 19:36 62 05/31/20 16:00 70 05/31/20 16:00 5.0 05/31/20 16:00 98.2 70 24 127/56 (79) 91 05/31/20 16:00 Nasal Cannula 5.0 05/31/20 12:00 5.0 05/31/20 12:00 107 05/31/20 12:00 97.8 90 22 126/54 (78) 92 05/31/20 12:00 Nasal Cannula 5.0 05/31/20 08:00 5.0 05/31/20 08:00 72 05/31/20 08:00 97.7 63 21 125/42 (69) 93 05/31/20 08:00 Nasal Cannula 5.0 05/31/20 04:00 97.9 68 32 130/47 (74) 94 05/31/20 04:00 15.0 05/31/20 04:00 Non-Rebreather 15.0 05/31/20 04:00 63 05/31/20 01:25 93 Venturi Mask 14.0 55 05/31/20 00:00 Nasal Cannula 2.0 05/31/20 00:00 97.6 70 24 145/60 (88) 94 05/31/20 00:00 2.0 05/31/20 00:00 48 05/30/20 20:00 2.0 05/30/20 20:00 97.5 69 24 148/82 (104) 96 05/30/20 20:00 Nasal Cannula 2.0 05/30/20 20:00 67 05/30/20 19:00 96 Nasal Cannula 4.0 36 05/30/20 16:00 2.0 05/30/20 16:00 60 05/30/20 16:00 98.2 69 20 136/57 (83) 97 05/30/20 16:00 Nasal Cannula 2.0 05/30/20 12:00 Nasal Cannula 2.0 05/30/20 12:00 2.0 05/30/20 12:00 97.0 64 20 120/58 (78) 97 66 05/30/20 12:00 65 Intake and Output 05/31/20 06/01/20 19:00 07:00 Intake Total 560 ml 200 ml Balance 560 ml 200 ml Intake Oral 560 ml 200 ml # Voids 3 4 # Bowel Movements 1 Labs Test 05/30/20 03:50 05/31/20 01:53 05/31/20 04:00 06/01/20 03:35 White Blood Count 4.3 K/UL (4.8-10.8) 4.8 K/UL (4.8-10.8) Red Blood Count 2.35 M/UL (4.20-5.40) 2.74 M/UL (4.20-5.40) Hemoglobin 7.4 G/DL (12.0-16.0) 8.6 G/DL (12.0-16.0) Hematocrit 22.2 % (37.0-47.0) 25.3 % (37.0-47.0) Mean Corpuscular Volume 94 FL (80-99) 92 FL (80-99) Mean Corpuscular Hemoglobin 31.6 PG (27.0-31.0) 31.3 PG (27.0-31.0) Mean Corpuscular Hemoglobin Concent 33.5 G/DL (32.0-36.0) 33.9 G/DL (32.0-36.0) Red Cell Distribution Width 15.0 % (11.6-14.8) 14.9 % (11.6-14.8) Platelet Count 136 K/UL (150-450) 133 K/UL (150-450) Mean Platelet Volume 7.9 FL (6.5-10.1) 7.8 FL (6.5-10.1) Neutrophils (%) (Auto) % (45.0-75.0) 76.7 % (45.0-75.0) Lymphocytes (%) (Auto) % (20.0-45.0) 15.9 % (20.0-45.0) Monocytes (%) (Auto) % (1.0-10.0) 5.8 % (1.0-10.0) Eosinophils (%) (Auto) % (0.0-3.0) 0.8 % (0.0-3.0) Basophils (%) (Auto) % (0.0-2.0) 0.7 % (0.0-2.0) Sodium Level 144 MMOL/L (136-145) 145 MMOL/L (136-145) 145 MMOL/L (136-145) Potassium Level 3.2 MMOL/L (3.5-5.1) 3.2 MMOL/L (3.5-5.1) 4.1 MMOL/L (3.5-5.1) Chloride Level 108 MMOL/L (98-107) 110 MMOL/L (98-107) 107 MMOL/L (98-107) Carbon Dioxide Level 31 MMOL/L (21-32) 30 MMOL/L (21-32) 35 MMOL/L (21-32) Anion Gap 6 mmol/L (5-15) 5 mmol/L (5-15) 3 mmol/L (5-15) Blood Urea Nitrogen 9 mg/dL (7-18) 11 mg/dL (7-18) 10 mg/dL (7-18) Creatinine 0.8 MG/DL (0.55-1.30) 0.8 MG/DL (0.55-1.30) 0.9 MG/DL (0.55-1.30) Estimat Glomerular Filtration Rate > 60 mL/min (>60) > 60 mL/min (>60) > 60 mL/min (>60) Glucose Level 86 MG/DL (74-106) 141 MG/DL (74-106) 86 MG/DL (74-106) Calcium Level 7.7 MG/DL (8.5-10.1) 7.9 MG/DL (8.5-10.1) 7.8 MG/DL (8.5-10.1) Phosphorus Level 1.9 MG/DL (2.5-4.9) 3.0 MG/DL (2.5-4.9) Magnesium Level 1.9 MG/DL (1.8-2.4) 1.7 MG/DL (1.8-2.4) Total Bilirubin 0.9 MG/DL (0.2-1.0) 0.7 MG/DL (0.2-1.0) Aspartate Amino Transf (AST/SGOT) 13 U/L (15-37) 17 U/L (15-37) Alanine Aminotransferase (ALT/SGPT) 13 U/L (12-78) 11 U/L (12-78) Alkaline Phosphatase 45 U/L (46-116) 51 U/L (46-116) Total Protein 6.1 G/DL (6.4-8.2) 6.6 G/DL (6.4-8.2) Albumin 2.4 G/DL (3.4-5.0) 2.7 G/DL (3.4-5.0) Globulin 3.7 g/dL 3.9 g/dL Albumin/Globulin Ratio 0.6 (1.0-2.7) 0.7 (1.0-2.7) HIV (1&2) Antibody Rapid Negative (NEGATIVE) Arterial Blood pH 7.365 (7.350-7.450) Arterial Blood Partial Pressure CO2 51.8 mmHg (35.0-45.0) Arterial Blood Partial Pressure O2 68.8 mmHg (75.0-100.0) Arterial Blood HCO3 28.9 mmol/L (22.0-26.0) Arterial Blood Oxygen Saturation 91.7 % (95-100) Arterial Blood Base Excess 3.0 (-2-2) Raphael Test Positive Height (Feet): 5 Height (Inches): 3.00 Weight (Pounds): 183 Objective Physical Exam: Vitals: reviewed General: NAD HEENT: nc, at Neck: supple Chest: decreased breath sounds bilaterally, crackles+++ 15L NRM Cardiovascular: RRR, no s3, s4 Abdomen: soft, nontender, nd Extremities: 1-2 + edema Neuro: nonverbal Frank Escobar MD Jun 01, 2020 08:51
--- NOTE | 2020-06-01 10:18 | Pulmonology Progress Note ---
Subjective ROS Limited/Unobtainable: Yes Interval Events: None new Constitutional: Denies: fever HEENT: Repors: no symptoms Respiratory: Reports: no symptoms Cardiovascular: Reports: no symptoms Gastrointestinal/Abdominal: Reports: no symptoms Genitourinary: Reports: no symptoms Allergies: Coded Allergies: LITHIUM (Verified Allergy, Unknown, 02/07/19) Objective Last 24 Hour Vital Signs Date Time Temp Pulse Resp B/P (MAP) Pulse Ox O2 Delivery O2 Flow Rate FiO2 06/01/20 08:00 Non-Rebreather 15.0 06/01/20 08:00 97.7 60 22 124/84 (97) 100 06/01/20 08:00 15.0 06/01/20 08:00 60 06/01/20 04:00 98.4 61 25 131/49 (76) 100 06/01/20 04:00 15.0 06/01/20 04:00 Non-Rebreather 15.0 06/01/20 04:00 61 06/01/20 00:00 61 06/01/20 00:00 98.0 63 26 140/55 (83) 100 06/01/20 00:00 15.0 06/01/20 00:00 Non-Rebreather 15.0 05/31/20 20:00 15.0 05/31/20 20:00 5.0 05/31/20 20:00 Non-Rebreather 15.0 05/31/20 20:00 97.9 65 23 139/59 (85) 100 05/31/20 19:36 62 05/31/20 16:00 70 05/31/20 16:00 5.0 05/31/20 16:00 98.2 70 24 127/56 (79) 91 05/31/20 16:00 Nasal Cannula 5.0 05/31/20 12:00 5.0 05/31/20 12:00 107 05/31/20 12:00 97.8 90 22 126/54 (78) 92 05/31/20 12:00 Nasal Cannula 5.0 Intake and Output 05/31/20 06/01/20 19:00 07:00 Intake Total 560 ml 200 ml Balance 560 ml 200 ml Intake Oral 560 ml 200 ml # Voids 3 4 # Bowel Movements 1 General Appearance: no acute distress HEENT: normocephalic Respiratory: no respiratory distress, decreased breath sounds Cardiovascular: normal rate Abdomen: soft, non tender, other - obese, NG tube Extremities: other - b/l 2+ pitting edema Neurologic: disoriented Laboratory Tests 06/01/20 03:35: Sodium Level 145, Potassium Level 4.1, Chloride Level 107, Carbon Dioxide Level 35H, Anion Gap 3L, Blood Urea Nitrogen 10, Creatinine 0.9, Estimat Glomerular Filtration Rate > 60, Glucose Level 86, Calcium Level 7.8L, Phosphorus Level 3.0, Magnesium Level 1.7L, Total Bilirubin 0.7, Aspartate Amino Transf (AST/SGOT) 17, Alanine Aminotransferase (ALT/SGPT) 11L, Alkaline Phosphatase 51, Total Protein 6.6, Albumin 2.7L, Globulin 3.9, Albumin/Globulin Ratio 0.7L Current Medications Medications (Trade) Dose Ordered Sig/Angie Route PRN Reason Start Time Stop Time Status Last Admin Dose Admin Acetaminophen (Tylenol) 650 mg Q6H PRN NG Fever >100.5 05/14/20 21:00 06/13/20 20:59 05/14/20 21:10 Acetaminophen (Tylenol) 650 mg Q6H PRN NG Mild Pain (Pain Scale 1-3) 05/14/20 21:00 06/13/20 20:59 05/17/20 11:06 Chlorhexidine Gluconate (Ruba-Hex 2%) 1 applic DAILY@1999 TOPIC 05/31/20 20:00 08/29/20 19:59 05/31/20 20:55 Clonidine HCl (Catapres Tab) 0.1 mg Q4H PRN ORAL sbp>170 05/11/20 17:15 08/09/20 17:14 Docusate Sodium (Colace) 100 mg TWICE A DAY ORAL 05/25/20 18:00 06/24/20 17:59 06/01/20 08:13 Furosemide (Lasix) 40 mg EVERY 12 HOURS IV 05/30/20 09:30 06/29/20 09:29 06/01/20 08:13 Haloperidol Lactate (Haldol) 5 mg Q6H PRN IM Agitation 05/13/20 20:45 06/27/20 20:44 05/28/20 02:40 Heparin Sodium (Porcine) (Heparin 5000 units/ml) 5,000 units EVERY 12 HOURS SUBQ 05/25/20 21:00 07/09/20 20:59 05/31/20 20:56 Heparin Sodium/ Sodium Chloride (Heparin 1000 units/500ml Premix) 1,000 unit ONCE PRN INJ radiology use 05/30/20 13:15 06/02/20 13:14 Levothyroxine Sodium (Synthroid) 50 mcg DAILY@0630 ORAL 05/14/20 06:30 06/13/20 06:29 06/01/20 06:16 Lidocaine HCl (Xylocaine 1% 30ml) 30 ml ONCE PRN INJ radiology use 05/30/20 13:15 06/02/20 13:14 Magnesium Sulfate 100 ml @ 100 mls/hr Q1H IVPB 06/01/20 11:00 06/01/20 12:59 Pantoprazole (Protonix) 40 mg Q12HR ORAL 05/26/20 21:00 06/25/20 20:59 06/01/20 08:12 Polyethylene Glycol (Miralax) 17 gm BEDTIME ORAL 05/25/20 21:00 06/24/20 20:59 05/31/20 20:56 Potassium Chloride (K-Dur) 40 meq TWICE A DAY ORAL 05/29/20 10:30 08/27/20 10:29 06/01/20 08:12 Quetiapine Fumarate (SEROqueL) 50 mg Q12HR ORAL 05/24/20 21:00 07/08/20 20:59 06/01/20 08:13 Assessment/Plan Assessment/Plan 1. Bilateral COVID-19 multilobar pneumonia. - s/p ETT - Afebrile - s/p Azithromycin, Ceftriaxone, dexamethasone - s/p remdesivir - CXR 05/31 Patchy bilateral airspace consolidations, consistent with multifocal infiltrate, similar in appearance to previous study from 05/30; Stable, small bilateral pleural effusions. 2. Hx of COPD. 3. Schizophrenia/psychosis - On haloperidol per Dr. Hernandez 4. Hypoxia. - Back on non-rebreather mask - Latest CXR (05/31) unchanged - on Lasix 40 mg IV BID 5. Anemia DVT ppx Sincere Myers MD Jun 01, 2020 10:18
[2020-06-01 12:00] VITALS: BP 101/49
--- NOTE | 2020-06-01 12:03 | Surgery Progress Note ---
Surgery Progress Note Subjective Symptoms: improved Objective Last 24 Hour Vital Signs Date Time Temp Pulse Resp B/P (MAP) Pulse Ox O2 Delivery O2 Flow Rate FiO2 06/01/20 08:00 Non-Rebreather 15.0 06/01/20 08:00 97.7 60 22 124/84 (97) 100 06/01/20 08:00 15.0 06/01/20 08:00 60 06/01/20 04:00 98.4 61 25 131/49 (76) 100 06/01/20 04:00 15.0 06/01/20 04:00 Non-Rebreather 15.0 06/01/20 04:00 61 06/01/20 00:00 61 06/01/20 00:00 98.0 63 26 140/55 (83) 100 06/01/20 00:00 15.0 06/01/20 00:00 Non-Rebreather 15.0 05/31/20 20:00 15.0 05/31/20 20:00 5.0 05/31/20 20:00 Non-Rebreather 15.0 05/31/20 20:00 97.9 65 23 139/59 (85) 100 05/31/20 19:36 62 05/31/20 16:00 70 05/31/20 16:00 5.0 05/31/20 16:00 98.2 70 24 127/56 (79) 91 05/31/20 16:00 Nasal Cannula 5.0 I&O Intake and Output 05/31/20 06/01/20 19:00 07:00 Intake Total 560 ml 200 ml Balance 560 ml 200 ml Intake Oral 560 ml 200 ml # Voids 3 4 # Bowel Movements 1 Dressing: saturated Cardiovascular: RSR Respiratory: decreased breath sounds Abdomen: non-tender, present bowel sounds Extremities: no edema, no tenderness, no cyanosis Laboratory Tests Test 06/01/20 03:35 Sodium Level 145 MMOL/L (136-145) Potassium Level 4.1 MMOL/L (3.5-5.1) Chloride Level 107 MMOL/L (98-107) Carbon Dioxide Level 35 MMOL/L (21-32) H Anion Gap 3 mmol/L (5-15) L Blood Urea Nitrogen 10 mg/dL (7-18) Creatinine 0.9 MG/DL (0.55-1.30) Estimat Glomerular Filtration Rate > 60 mL/min (>60) Glucose Level 86 MG/DL (74-106) Calcium Level 7.8 MG/DL (8.5-10.1) L Phosphorus Level 3.0 MG/DL (2.5-4.9) Magnesium Level 1.7 MG/DL (1.8-2.4) L Total Bilirubin 0.7 MG/DL (0.2-1.0) Aspartate Amino Transf (AST/SGOT) 17 U/L (15-37) Alanine Aminotransferase (ALT/SGPT) 11 U/L (12-78) L Alkaline Phosphatase 51 U/L (46-116) Total Protein 6.6 G/DL (6.4-8.2) Albumin 2.7 G/DL (3.4-5.0) L Globulin 3.9 g/dL Albumin/Globulin Ratio 0.7 (1.0-2.7) L Plan Problems: (1) Anemia (2) Hypercapnic respiratory failure Assessment & Plan: respiratory insufficiency requiring prolonged ventilatory support unable to wean vent safely after multiple attempts discussed with pcp. discussed with pulm discussed with patient guardian. patient unable to consent. no nok or poa. given critical care and condition not recommended to await court decision which during pandemic can take long time. medically necessary to proceed with trach in patients best interest. 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
--- NOTE | 2020-06-01 12:21 | Infectious Diseases Prog Note ---
Assessment/Plan Assessment/Plan IMPRESSION: COVID-19 disease, Acute respiratory failure, COPD, Diastolic CHF, Mitral valve regurgitation, Anemia, Parkinson disease, schizoaffective disorder, Dementia, Obstructive sleep apnea, Hypothyroidism. 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0 06/01/20 04:00 Non-Rebreather 15.0 06/01/20 04:00 61 06/01/20 00:00 61 06/01/20 00:00 98.0 63 26 140/55 (83) 100 06/01/20 00:00 15.0 06/01/20 00:00 Non-Rebreather 15.0 05/31/20 20:00 15.0 05/31/20 20:00 5.0 05/31/20 20:00 Non-Rebreather 15.0 05/31/20 20:00 97.9 65 23 139/59 (85) 100 05/31/20 19:36 62 05/31/20 16:00 70 05/31/20 16:00 5.0 05/31/20 16:00 98.2 70 24 127/56 (79) 91 05/31/20 16:00 Nasal Cannula 5.0 Height (Feet): 5 Height (Inches): 3.00 Weight (Pounds): 183 HEENT: mucous membranes moist Respiratory/Chest: other - oxygen by ventuti mask Cardiovascular: normal rate Abdomen: soft, non tender Extremities: no edema Neurologic/Psychiatric: alert, responsive Laboratory Tests Test 06/01/20 03:35 Sodium Level 145 MMOL/L (136-145) Potassium Level 4.1 MMOL/L (3.5-5.1) Chloride Level 107 MMOL/L (98-107) Carbon Dioxide Level 35 MMOL/L (21-32) H Anion Gap 3 mmol/L (5-15) L Blood Urea Nitrogen 10 mg/dL (7-18) Creatinine 0.9 MG/DL (0.55-1.30) Estimat Glomerular Filtration Rate > 60 mL/min (>60) Glucose Level 86 MG/DL (74-106) Calcium Level 7.8 MG/DL (8.5-10.1) L Phosphorus Level 3.0 MG/DL (2.5-4.9) Magnesium Level 1.7 MG/DL (1.8-2.4) L Total Bilirubin 0.7 MG/DL (0.2-1.0) Aspartate Amino Transf (AST/SGOT) 17 U/L (15-37) Alanine Aminotransferase (ALT/SGPT) 11 U/L (12-78) L Alkaline Phosphatase 51 U/L (46-116) Total Protein 6.6 G/DL (6.4-8.2) Albumin 2.7 G/DL (3.4-5.0) L Globulin 3.9 g/dL Albumin/Globulin Ratio 0.7 (1.0-2.7) L Current Medications Medications (Trade) Dose Ordered Sig/Angie Route PRN Reason Start Time Stop Time Status Last Admin Dose Admin Acetaminophen (Tylenol) 650 mg Q6H PRN NG Fever >100.5 05/14/20 21:00 06/13/20 20:59 05/14/20 21:10 Acetaminophen (Tylenol) 650 mg Q6H PRN NG Mild Pain (Pain Scale 1-3) 05/14/20 21:00 06/13/20 20:59 05/17/20 11:06 Chlorhexidine Gluconate (Ruba-Hex 2%) 1 applic DAILY@1999 TOPIC 05/31/20 20:00 08/29/20 19:59 05/31/20 20:55 Clonidine HCl (Catapres Tab) 0.1 mg Q4H PRN ORAL sbp>170 05/11/20 17:15 08/09/20 17:14 Docusate Sodium (Colace) 100 mg TWICE A DAY ORAL 05/25/20 18:00 06/24/20 17:59 06/01/20 08:13 Furosemide (Lasix) 40 mg EVERY 12 HOURS IV 05/30/20 09:30 06/29/20 09:29 06/01/20 08:13 Haloperidol Lactate (Haldol) 5 mg Q6H PRN IM Agitation 05/13/20 20:45 06/27/20 20:44 05/28/20 02:40 Heparin Sodium (Porcine) (Heparin 5000 units/ml) 5,000 units EVERY 12 HOURS SUBQ 05/25/20 21:00 07/09/20 20:59 05/31/20 20:56 Heparin Sodium/ Sodium Chloride (Heparin 1000 units/500ml Premix) 1,000 unit ONCE PRN INJ radiology use 05/30/20 13:15 06/02/20 13:14 Levothyroxine Sodium (Synthroid) 50 mcg DAILY@0630 ORAL 05/14/20 06:30 06/13/20 06:29 06/01/20 06:16 Lidocaine HCl (Xylocaine 1% 30ml) 30 ml ONCE PRN INJ radiology use 05/30/20 13:15 06/02/20 13:14 Magnesium Sulfate 100 ml @ 100 mls/hr Q1H IVPB 06/01/20 11:00 06/01/20 12:59 06/01/20 12:06 Pantoprazole (Protonix) 40 mg Q12HR ORAL 05/26/20 21:00 06/25/20 20:59 06/01/20 08:12 Polyethylene Glycol (Miralax) 17 gm BEDTIME ORAL 05/25/20 21:00 06/24/20 20:59 05/31/20 20:56 Potassium Chloride (K-Dur) 40 meq TWICE A DAY ORAL 05/29/20 10:30 08/27/20 10:29 06/01/20 08:12 Quetiapine Fumarate (SEROqueL) 50 mg Q12HR ORAL 05/24/20 21:00 07/08/20 20:59 06/01/20 08:13 Lei Chan MD Jun 01, 2020 12:21
--- NOTE | 2020-06-01 15:19 | General Progress Note ---
Subjective Allergies: Coded Allergies: LITHIUM (Verified Allergy, Unknown, 02/07/19) Subjective above noted d/w RN back on face mask O2 but able to eat OK Objective Last 24 Hour Vital Signs Date Time Temp Pulse Resp B/P (MAP) Pulse Ox O2 Delivery O2 Flow Rate FiO2 06/01/20 08:00 Non-Rebreather 15.0 06/01/20 08:00 97.7 60 22 124/84 (97) 100 06/01/20 08:00 15.0 06/01/20 08:00 60 06/01/20 04:00 98.4 61 25 131/49 (76) 100 06/01/20 04:00 15.0 06/01/20 04:00 Non-Rebreather 15.0 06/01/20 04:00 61 06/01/20 00:00 61 06/01/20 00:00 98.0 63 26 140/55 (83) 100 06/01/20 00:00 15.0 06/01/20 00:00 Non-Rebreather 15.0 05/31/20 20:00 15.0 05/31/20 20:00 5.0 05/31/20 20:00 Non-Rebreather 15.0 05/31/20 20:00 97.9 65 23 139/59 (85) 100 05/31/20 19:36 62 05/31/20 16:00 70 05/31/20 16:00 5.0 05/31/20 16:00 98.2 70 24 127/56 (79) 91 05/31/20 16:00 Nasal Cannula 5.0 Intake and Output 05/31/20 06/01/20 19:00 07:00 Intake Total 560 ml 200 ml Balance 560 ml 200 ml Intake Oral 560 ml 200 ml # Voids 3 4 # Bowel Movements 1 Laboratory Tests 06/01/20 03:35: Sodium Level 145, Potassium Level 4.1, Chloride Level 107, Carbon Dioxide Level 35H, Anion Gap 3L, Blood Urea Nitrogen 10, Creatinine 0.9, Estimat Glomerular Filtration Rate > 60, Glucose Level 86, Calcium Level 7.8L, Phosphorus Level 3.0, Magnesium Level 1.7L, Total Bilirubin 0.7, Aspartate Amino Transf ( T/SGOT) 17, Alanine Aminotransferase (ALT/SGPT) 11L, Alkaline Phosphatase 51, Total Protein 6.6, Albumin 2.7L, Globulin 3.9, Albumin/Globulin Ratio 0.7L Height (Feet): 5 Height (Inches): 3.00 Weight (Pounds): 183 Objective WDWN WW more calm today Exam limited due to COVID isolation Assessment/Plan Status: progressing, unchanged, deteriorating Assessment/Plan: Assessment/Plan (1) Hypertension (2) Schizophrenia (3) Hyperlipidemia (4) Parkinson disease (5) Anemia (6) Obese (7) COVID (+) (8) Hypoxia Recommendations PPI BID Follow H&H Transfuse to keep Hg>7.0 po as tolerated - per ST rec GI procedures at a later date, if needed bowel regimen Aria Chicas MD Jun 01, 2020 15:19
--- NOTE | 2020-06-01 15:44 | Nephrology Progress Note ---
Assessment/Plan Problem List: (1) Renal failure (ARF), acute on chronic (2) Hypercapnic respiratory failure (3) CHF exacerbation (4) Anemia Assessment Azotemia/renal failure Acute respiratory failure most likely secondary to CHF, on mechanical ventilation History of COPD Hypertension Hyperlipemia Schizophrenia/psychosis Plan June 01: Labs reviewed. Low magnesium replaced. Renal parameters stable. Hemoglobin level reasonable. Continue per consultants. May 31: Labs reviewed. Abnormal electrolytes at rest. Hemoglobin higher. Discussed with DARREL Cooper. Continue per consultants. May 30: Lab reviewed. Potassium and phosphorus replaced. Hemoglobin higher after transfusion. Continue per consultants. May 29: Lab reviewed. Patient anemic. Electrolyte abnormalities reviewed and addressed. Continue per consultants. Remains stable from renal standpoint of view. May 28: Patient was not transfused despite of my order since yesterday. Will defer transfusion to PMD/differential specialist. Patient remains stable from renal standpoint of view. Continue per consultants. Discussed with Marlene nursing charge in [place]. May 27: Remains on Venturi mask. Labs reviewed. Abnormal electrolytes addressed. Hemoglobin low. Will transfuse 1 unit of packed RBCs today May 26: On Venturi mask. Labs reviewed. Abnormal electrolytes addressed. Continue per consultants and pulmonary support. May 25: On Venturi mask. Lethargic. No labs drawn today. Will monitor renal parameters. Per orders. May 24: Remains extubated. Will start on diet with high alert for possible aspiration. Continue to monitor renal parameters. May 23: Continues to be extubated. On nonrebreathing mask. Labs reviewed. Renal parameters stable. Discussed with RN. Continue per current management. May 22: Now extubated on nonrebreathing mask. Labs reviewed. Renal parameters stable. Abnormal electrolytes addressed. Discussed with RN. May 21: Remains intubated. Labs reviewed. Abnormal electrolytes addressed. Discussed with RN. May 20: Remains intubated. Abnormal electrolyte noted on today's lab results and addressed. Continue per consultants. May 19: Patient remains intubated. Labs reviewed. Abnormal electrolytes addressed. Continue per current management. May 18: Patient seen in ICU. Remains intubated. Weaning is being tried. Discussed with RN. Labs reviewed. Abnormal electrolyte addressed. Continue per consultants. May 17: Labs reviewed. Remains intubated. Stable from renal standpoint of view. Continue weaning. Discussed with RN. Douglas 4: Labs reviewed. Remains intubated. Remains full code. Stable from renal standpoint of view. Abnormal electrolytes addressed. May 15: Labs reviewed. Renal parameters stable. Discussed with RN. Patient remains intubated on ventilator and full code. Continue per consultants. May 14: Labs reviewed. Discussed with RN. Abnormal electrolyte addressed. Continue per current management. Patient seen in ICU. Discussed with RN. Today's labs pending. Patient remains on 6 mics of dopamine. Pulmonary support Monitor intake and output Monitor electrolytes Continue per consultants Per orders Subjective ROS Limited/Unobtainable: No Constitutional: Reports: malaise, weakness Objective Objective Last 24 Hour Vital Signs Date Time Temp Pulse Resp B/P (MAP) Pulse Ox O2 Delivery O2 Flow Rate FiO2 06/01/20 12:00 15.0 06/01/20 12:00 97.3 66 21 101/49 (66) 98 06/01/20 12:00 58 06/01/20 12:00 Non-Rebreather 15.0 06/01/20 08:00 Non-Rebreather 15.0 06/01/20 08:00 97.7 60 22 124/84 (97) 100 06/01/20 08:00 15.0 06/01/20 08:00 60 06/01/20 04:00 98.4 61 25 131/49 (76) 100 06/01/20 04:00 15.0 06/01/20 04:00 Non-Rebreather 15.0 06/01/20 04:00 61 06/01/20 00:00 61 06/01/20 00:00 98.0 63 26 140/55 (83) 100 06/01/20 00:00 15.0 06/01/20 00:00 Non-Rebreather 15.0 05/31/20 20:00 15.0 05/31/20 20:00 5.0 05/31/20 20:00 Non-Rebreather 15.0 05/31/20 20:00 97.9 65 23 139/59 (85) 100 05/31/20 19:36 62 05/31/20 16:00 70 05/31/20 16:00 5.0 05/31/20 16:00 98.2 70 24 127/56 (79) 91 05/31/20 16:00 Nasal Cannula 5.0 Intake and Output 05/31/20 06/01/20 19:00 07:00 Intake Total 560 ml 200 ml Balance 560 ml 200 ml Intake Oral 560 ml 200 ml # Voids 3 4 # Bowel Movements 1 Laboratory Tests 06/01/20 03:35: Sodium Level 145, Potassium Level 4.1, Chloride Level 107, Carbon Dioxide Level 35H, Anion Gap 3L, Blood Urea Nitrogen 10, Creatinine 0.9, Estimat Glomerular Filtration Rate > 60, Glucose Level 86, Calcium Level 7.8L, Phosphorus Level 3.0, Magnesium Level 1.7L, Total Bilirubin 0.7, Aspartate Amino Transf (AST/SGOT) 17, Alanine Aminotransferase (ALT/SGPT) 11L, Alkaline Phosphatase 51, Total Protein 6.6, Albumin 2.7L, Globulin 3.9, Albumin/Globulin Ratio 0.7L Height (Feet): 5 Height (Inches): 3.00 Weight (Pounds): 183 General Appearance: no apparent distress Cardiovascular: normal rate Respiratory/Chest: decreased breath sounds Abdomen: distended Bryan Ochoa MD Jun 01, 2020 15:44
[2020-06-01 16:00] VITALS: BP 100/64
[2020-06-01 20:00] VITALS: BP 103/45
[2020-06-01] MEDS: Dyna-Hex 2% Top Sol 2oz TOPIC SCH (20:05)
--- NOTE | 2020-06-01 20:10 | General Progress Note ---
Subjective ROS Limited/Unobtainable: Yes Allergies: Coded Allergies: LITHIUM (Verified Allergy, Unknown, 02/07/19) Objective Last 24 Hour Vital Signs Date Time Temp Pulse Resp B/P (MAP) Pulse Ox O2 Delivery O2 Flow Rate FiO2 06/01/20 16:00 97.7 79 20 100/64 (76) 98 06/01/20 16:00 15.0 06/01/20 16:00 Non-Rebreather 15.0 06/01/20 16:00 64 06/01/20 12:00 15.0 06/01/20 12:00 97.3 66 21 101/49 (66) 98 06/01/20 12:00 58 06/01/20 12:00 Non-Rebreather 15.0 06/01/20 08:00 Non-Rebreather 15.0 06/01/20 08:00 97.7 60 22 124/84 (97) 100 06/01/20 08:00 15.0 06/01/20 08:00 60 06/01/20 04:00 98.4 61 25 131/49 (76) 100 06/01/20 04:00 15.0 06/01/20 04:00 Non-Rebreather 15.0 06/01/20 04:00 61 06/01/20 00:00 61 06/01/20 00:00 98.0 63 26 140/55 (83) 100 06/01/20 00:00 15.0 06/01/20 00:00 Non-Rebreather 15.0 Intake and Output 05/31/20 06/01/20 19:00 07:00 Intake Total 560 ml 200 ml Balance 560 ml 200 ml Intake Oral 560 ml 200 ml # Voids 3 4 # Bowel Movements 1 Laboratory Tests 06/01/20 03:35: Sodium Level 145, Potassium Level 4.1, Chloride Level 107, Carbon Dioxide Level 35H, Anion Gap 3L, Blood Urea Nitrogen 10, Creatinine 0.9, Estimat Glomerular Fi ltration Rate > 60, Glucose Level 86, Calcium Level 7.8L, Phosphorus Level 3.0, Magnesium Level 1.7L, Total Bilirubin 0.7, Aspartate Amino Transf (AST/SGOT) 17, Alanine Aminotransferase (ALT/SGPT) 11L, Alkaline Phosphatase 51, Total Protein 6.6, Albumin 2.7L, Globulin 3.9, Albumin/Globulin Ratio 0.7L Height (Feet): 5 Height (Inches): 3.00 Weight (Pounds): 183 Assessment/Plan Problem List: (1) Anemia ICD Codes: D64.9 - Anemia, unspecified SNOMED: 847396858 (2) Hypercapnic respiratory failure ICD Codes: J96.92 - Respiratory failure, unspecified with hypercapnia SNOMED: 299133022 (3) COVID-19 ICD Codes: U07.1 - COVID-19 SNOMED: 160594112 (4) COPD (chronic obstructive pulmonary disease) ICD Codes: J44.9 - Chronic obstructive pulmonary disease, unspecified SNOMED: 77592803 (5) Psychosis ICD Codes: F29 - Unspecified psychosis not due to a substance or known physiological condition SNOMED: 58311935 (6) Hypoxia ICD Codes: R09.02 - Hypoxemia SNOMED: 538190686 (7) Renal failure (ARF), acute on chronic ICD Codes: N17.9 - Acute kidney failure, unspecified; N18.9 - Chronic kidney disease, unspecified SNOMED: 619484283 (8) CHF exacerbation ICD Codes: I50.9 - Heart failure, unspecified SNOMED: 324566015, 59060747276301 Status: progressing, unchanged, deteriorating Assessment/Plan: transfusion per dr lebron afebrile no acute events covid positive pna sepsis copd exac chf exac Dani Perera MD Jun 01, 2020 20:10
[2020-06-01 20:51] LABS: BASOPHILS % (AUTO) 0.8 % (0.0-2.0); EOSINOPHILS % (AUTO) 1.4 % (0.0-3.0); HEMATOCRIT 23.9 % (37.0-47.0); HEMOGLOBIN 8.2 G/DL (12.0-16.0); LYMPHOCYTES % (AUTO) 29.9 % (20.0-45.0); MEAN CORPUSCULAR VOLUME 92 FL (80-99); MONOCYTES % (AUTO) 5.7 % (1.0-10.0); NEUTROPHILS % (AUTO) 62.2 % (45.0-75.0); PLATELET COUNT 151 K/UL (150-450); RED BLOOD COUNT 2.59 M/UL (4.20-5.40); RED CELL DISTRIBUTION WIDTH 17.1 % (11.6-14.8); WHITE BLOOD COUNT 4.5 K/UL (4.8-10.8)
[2020-06-01] MEDS: Miralax 17gm pkt ORAL SCH (20:55)
[2020-06-02] VITALS: BP 109/51
[2020-06-02 04:00] VITALS: BP 111/48
[2020-06-02 05:52] LABS: BASOPHILS % (AUTO) 0.6 % (0.0-2.0); EOSINOPHILS % (AUTO) 1.2 % (0.0-3.0); HEMATOCRIT 25.3 % (37.0-47.0); HEMOGLOBIN 8.4 G/DL (12.0-16.0); LYMPHOCYTES % (AUTO) 31.8 % (20.0-45.0); MEAN CORPUSCULAR VOLUME 96 FL (80-99); MONOCYTES % (AUTO) 7.3 % (1.0-10.0); NEUTROPHILS % (AUTO) 59.1 % (45.0-75.0); PLATELET COUNT 155 K/UL (150-450); RED BLOOD COUNT 2.64 M/UL (4.20-5.40); RED CELL DISTRIBUTION WIDTH 16.1 % (11.6-14.8); WHITE BLOOD COUNT 4.9 K/UL (4.8-10.8)
[2020-06-02 06:46] LABS: ALBUMIN 2.8 G/DL (3.4-5.0); ALBUMIN/GLOBULIN RATIO 0.7 (1.0-2.7); BILIRUBIN,TOTAL 1.2 MG/DL (0.2-1.0); CALCIUM 8.1 MG/DL (8.5-10.1)
--- NOTE | 2020-06-02 06:50 | Hematology/Onc Progress Note ---
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 ( combination of moderate aortic regurgitation and severe mitral regurgitation) --> diuresis as per cards --> lasix last time # Severe ascending aortic dilatation --> per Dr Keke campbell # Hypertension # Parkinson disease # Hyperlipidemia # Hypothyroidism # Dementia # Obesity # Schizophrenia --> as per [facility] --> restraints # Dvt ppx heparin sq Appreciate telecommunications consultant care and alexei Rn Subjective Constitutional: Denies: no symptoms, chills, fever, malaise, weakness, other HEENT: Denies: no symptoms, eye pain, blurred vision, tearing, double vision, ear pain, ear discharge, nose pain, nose congestion, throat pain, throat swelling, mouth pain, mouth swelling, other Respiratory: Denies: no symptoms, cough, shortness of breath, SOB with excertion, SOB at rest, sputum, wheezing, other Gastrointestinal/Abdominal: Denies: no symptoms, abdomen distended, abdominal pain, black stools, tarry stools, blood in stool, constipated, diarrhea, difficulty swallowing, nausea, poor appetite, poor fluid intake, rectal bleeding, vomiting, other Genitourinary: Denies: no symptoms, burning, discharge, frequency, flank pain, hematuria, incontinence, pain, urgency, other Neurologic/Psychiatric: Denies: no symptoms, anxiety, depressed, emotional problems, headache, numbness, paresthesia, pre-existing deficit, seizure, tingling, tremors, weakness, other Endocrine: Denies: no symptoms, excessive sweating, flushing, intolerance to cold, intolerance to heat, increased hunger, increased thirst, increased urine, unexplained weight gain, unexplained weight loss, other Hematologic/Lymphatic: Denies: no symptoms, anemia, easy bleeding, easy bruising, adenopathy, other Allergies: Coded Allergies: LITHIUM (Verified Allergy, Unknown, 02/07/19) Subjective 06/01 nonrebreather, 15L, some mild pain in back, chest, no night sweats 06/02 remains on nonrebreather, labs are noted, no bleeding or night sweats Objective Objective Current Medications Medications (Trade) Dose Ordered Sig/Angie Route PRN Reason Start Time Stop Time Status Last Admin Dose Admin Acetaminophen (Tylenol) 650 mg Q6H PRN NG Fever >100.5 05/14/20 21:00 06/13/20 20:59 05/14/20 21:10 Acetaminophen (Tylenol) 650 mg Q6H PRN NG Mild Pain (Pain Scale 1-3) 05/14/20 21:00 06/13/20 20:59 05/17/20 11:06 Chlorhexidine Gluconate (Ruba-Hex 2%) 1 applic DAILY@1999 TOPIC 05/31/20 20:00 08/29/20 19:59 06/01/20 20:05 Clonidine HCl (Catapres Tab) 0.1 mg Q4H PRN ORAL sbp>170 05/11/20 17:15 08/09/20 17:14 Docusate Sodium (Colace) 100 mg TWICE A DAY ORAL 05/25/20 18:00 06/24/20 17:59 06/01/20 18:08 Furosemide (Lasix) 40 mg EVERY 12 HOURS IV 05/30/20 09:30 06/29/20 09:29 06/01/20 20:53 Haloperidol Lactate (Haldol) 5 mg Q6H PRN IM Agitation 05/13/20 20:45 06/27/20 20:44 05/28/20 02:40 Heparin Sodium (Porcine) (Heparin 5000 units/ml) 5,000 units EVERY 12 HOURS SUBQ 05/25/20 21:00 07/09/20 20:59 06/01/20 21:18 Heparin Sodium/ Sodium Chloride (Heparin 1000 units/500ml Premix) 1,000 unit ONCE PRN INJ radiology use 05/30/20 13:15 06/02/20 13:14 Levothyroxine Sodium (Synthroid) 50 mcg DAILY@0630 ORAL 05/14/20 06:30 06/13/20 06:29 06/02/20 06:03 Lidocaine HCl (Xylocaine 1% 30ml) 30 ml ONCE PRN INJ radiology use 05/30/20 13:15 06/02/20 13:14 Pantoprazole (Protonix) 40 mg Q12HR ORAL 05/26/20 21:00 06/25/20 20:59 06/01/20 20:54 Polyethylene Glycol (Miralax) 17 gm BEDTIME ORAL 05/25/20 21:00 06/24/20 20:59 06/01/20 20:55 Potassium Chloride (K-Dur) 40 meq TWICE A DAY ORAL 05/29/20 10:30 08/27/20 10:29 06/01/20 18:08 Quetiapine Fumarate (SEROqueL) 50 mg Q12HR ORAL 05/24/20 21:00 07/08/20 20:59 06/01/20 20:54 Last 24 Hour Vital Signs Date Time Temp Pulse Resp B/P (MAP) Pulse Ox O2 Delivery O2 Flow Rate FiO2 06/02/20 04:00 97.7 69 22 111/48 (69) 97 06/02/20 04:00 Venturi Mask 8.0 06/02/20 04:00 14.0 06/02/20 03:42 73 06/02/20 00:00 98.1 61 23 109/51 (70) 94 06/02/20 00:00 54 06/02/20 00:00 15.0 06/02/20 00:00 Non-Rebreather 15.0 06/01/20 20:00 78 06/01/20 20:00 Non-Rebreather 15.0 06/01/20 20:00 15.0 06/01/20 20:00 98.5 75 22 103/45 (64) 98 06/01/20 16:00 97.7 79 20 100/64 (76) 98 06/01/20 16:00 15.0 06/01/20 16:00 Non-Rebreather 15.0 06/01/20 16:00 64 06/01/20 12:00 15.0 06/01/20 12:00 97.3 66 21 101/49 (66) 98 06/01/20 12:00 58 06/01/20 12:00 Non-Rebreather 15.0 06/01/20 08:00 Non-Rebreather 15.0 06/01/20 08:00 97.7 60 22 124/84 (97) 100 06/01/20 08:00 15.0 06/01/20 08:00 60 06/01/20 04:00 98.4 61 25 131/49 (76) 100 06/01/20 04:00 15.0 06/01/20 04:00 Non-Rebreather 15.0 06/01/20 04:00 61 06/01/20 00:00 61 06/01/20 00:00 98.0 63 26 140/55 (83) 100 06/01/20 00:00 15.0 06/01/20 00:00 Non-Rebreather 15.0 05/31/20 20:00 15.0 05/31/20 20:00 5.0 05/31/20 20:00 Non-Rebreather 15.0 05/31/20 20:00 97.9 65 23 139/59 (85) 100 05/31/20 19:36 62 05/31/20 16:00 70 05/31/20 16:00 5.0 05/31/20 16:00 98.2 70 24 127/56 (79) 91 05/31/20 16:00 Nasal Cannula 5.0 05/31/20 12:00 5.0 05/31/20 12:00 107 05/31/20 12:00 97.8 90 22 126/54 (78) 92 05/31/20 12:00 Nasal Cannula 5.0 05/31/20 08:00 5.0 05/31/20 08:00 72 05/31/20 08:00 97.7 63 21 125/42 (69) 93 05/31/20 08:00 Nasal Cannula 5.0 Intake and Output 06/01/20 06/02/20 19:00 07:00 Intake Total 180 ml Output Total 740 ml Balance -560 ml Intake Oral 180 ml Output Urine Total 740 ml Labs Test 05/31/20 01:53 05/31/20 04:00 06/01/20 03:35 06/01/20 20:00 Arterial Blood pH 7.365 (7.350-7.450) Arterial Blood Partial Pressure CO2 51.8 mmHg (35.0-45.0) Arterial Blood Partial Pressure O2 68.8 mmHg (75.0-100.0) Arterial Blood HCO3 28.9 mmol/L (22.0-26.0) Arterial Blood Oxygen Saturation 91.7 % (95-100) Arterial Blood Base Excess 3.0 (-2-2) Raphael Test Positive White Blood Count 4.8 K/UL (4.8-10.8) 4.5 K/UL (4.8-10.8) Red Blood Count 2.74 M/UL (4.20-5.40) 2.59 M/UL (4.20-5.40) Hemoglobin 8.6 G/DL (12.0-16.0) 8.2 G/DL (12.0-16.0) Hematocrit 25.3 % (37.0-47.0) 23.9 % (37.0-47.0) Mean Corpuscular Volume 92 FL (80-99) 92 FL (80-99) Mean Corpuscular Hemoglobin 31.3 PG (27.0-31.0) 31.8 PG (27.0-31.0) Mean Corpuscular Hemoglobin Concent 33.9 G/DL (32.0-36.0) 34.5 G/DL (32.0-36.0) Red Cell Distribution Width 14.9 % (11.6-14.8) 17.1 % (11.6-14.8) Platelet Count 133 K/UL (150-450) 151 K/UL (150-450) Mean Platelet Volume 7.8 FL (6.5-10.1) 6.8 FL (6.5-10.1) Neutrophils (%) (Auto) 76.7 % (45.0-75.0) 62.2 % (45.0-75.0) Lymphocytes (%) (Auto) 15.9 % (20.0-45.0) 29.9 % (20.0-45.0) Monocytes (%) (Auto) 5.8 % (1.0-10.0) 5.7 % (1.0-10.0) Eosinophils (%) (Auto) 0.8 % (0.0-3.0) 1.4 % (0.0-3.0) Basophils (%) (Auto) 0.7 % (0.0-2.0) 0.8 % (0.0-2.0) Sodium Level 145 MMOL/L (136-145) 145 MMOL/L (136-145) Potassium Level 3.2 MMOL/L (3.5-5.1) 4.1 MMOL/L (3.5-5.1) Chloride Level 110 MMOL/L (98-107) 107 MMOL/L (98-107) Carbon Dioxide Level 30 MMOL/L (21-32) 35 MMOL/L (21-32) Anion Gap 5 mmol/L (5-15) 3 mmol/L (5-15) Blood Urea Nitrogen 11 mg/dL (7-18) 10 mg/dL (7-18) Creatinine 0.8 MG/DL (0.55-1.30) 0.9 MG/DL (0.55-1.30) Estimat Glomerular Filtration Rate > 60 mL/min (>60) > 60 mL/min (>60) Glucose Level 141 MG/DL (74-106) 86 MG/DL (74-106) Calcium Level 7.9 MG/DL (8.5-10.1) 7.8 MG/DL (8.5-10.1) Phosphorus Level 3.0 MG/DL (2.5-4.9) Magnesium Level 1.7 MG/DL (1.8-2.4) Total Bilirubin 0.7 MG/DL (0.2-1.0) Aspartate Amino Transf (AST/SGOT) 17 U/L (15-37) Alanine Aminotransferase (ALT/SGPT) 11 U/L (12-78) Alkaline Phosphatase 51 U/L (46-116) Total Protein 6.6 G/DL (6.4-8.2) Albumin 2.7 G/DL (3.4-5.0) Globulin 3.9 g/dL Albumin/Globulin Ratio 0.7 (1.0-2.7) Test 06/02/20 04:00 White Blood Count 4.9 K/UL (4.8-10.8) Red Blood Count 2.64 M/UL (4.20-5.40) Hemoglobin 8.4 G/DL (12.0-16.0) Hematocrit 25.3 % (37.0-47.0) Mean Corpuscular Volume 96 FL (80-99) Mean Corpuscular Hemoglobin 31.8 PG (27.0-31.0) Mean Corpuscular Hemoglobin Concent 33.2 G/DL (32.0-36.0) Red Cell Distribution Width 16.1 % (11.6-14.8) Platelet Count 155 K/UL (150-450) Mean Platelet Volume 7.6 FL (6.5-10.1) Neutrophils (%) (Auto) 59.1 % (45.0-75.0) Lymphocytes (%) (Auto) 31.8 % (20.0-45.0) Monocytes (%) (Auto) 7.3 % (1.0-10.0) Eosinophils (%) (Auto) 1.2 % (0.0-3.0) Basophils (%) (Auto) 0.6 % (0.0-2.0) Height (Feet): 5 Height (Inches): 3.00 Weight (Pounds): 183 Objective Physical Exam: Vitals: reviewed General: NAD HEENT: nc, at Neck: supple Chest: decreased breath sounds bilaterally, crackles+++ 15L NRM Cardiovascular: RRR, no s3, s4 Abdomen: soft, nontender, nd Extremities: 1-2 + edema Neuro: nonverbal Frank Escobar MD Jun 02, 2020 06:50
[2020-06-02 06:56] LABS: BILIRUBIN,DIRECT 0.2 MG/DL (0.0-0.3)
[2020-06-02 08:00] VITALS: BP 113/44
[2020-06-02] MEDS: Docusate 100mg cap ORAL SCH ×2 (09:24→18:00)
[2020-06-02] MEDS: Heparin 5000 units/ml inj SUBQ SCH ×2 (09:25→21:15)
--- NOTE | 2020-06-02 10:59 | Infectious Diseases Prog Note ---
Assessment/Plan Assessment/Plan IMPRESSION: COVID-19 disease, Acute respiratory failure, COPD, Diastolic CHF, Mitral valve regurgitation, Anemia, Parkinson disease, schizoaffective disorder, Dementia, Obstructive sleep apnea, Hypothyroidism. 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 Will repeat COVID19 test Subjective ROS Limited/Unobtainable: Yes Neurologic: Reports: confusion, other - on restraint Allergies: Coded Allergies: LITHIUM (Verified Allergy, Unknown, 02/07/19) Objective Last 24 Hour Vital Signs Date Time Temp Pulse Resp B/P (MAP) Pulse Ox O2 Delivery O2 Flow Rate FiO2 06/02/20 08:00 Venturi Mask 8.0 06/02/20 08:00 78 06/02/20 08:00 97.1 84 18 113/44 (67) 98 06/02/20 04:00 97.7 69 22 111/48 (69) 97 06/02/20 04:00 Venturi Mask 8.0 06/02/20 04:00 14.0 06/02/20 03:42 73 06/02/20 00:00 98.1 61 23 109/51 (70) 94 06/02/20 00:00 54 06/02/20 00:00 15.0 06/02/20 00:00 Non-Rebreather 15.0 06/01/20 20:00 78 06/01/20 20:00 Non-Rebreather 15.0 06/01/20 20:00 15.0 06/01/20 20:00 98.5 75 22 103/45 (64) 98 06/01/20 16:00 97.7 79 20 100/64 (76) 98 06/01/20 16:00 15.0 06/01/20 16:00 Non-Rebreather 15.0 06/01/20 16:00 64 06/01/20 12:00 15.0 06/01/20 12:00 97.3 66 21 101/49 (66) 98 06/01/20 12:00 58 06/01/20 12:00 Non-Rebreather 15.0 Height (Feet): 5 Height (Inches): 3.00 Weight (Pounds): 183 HEENT: mucous membranes moist Respiratory/Chest: other - oxygen by mask Cardiovascular: normal rate Abdomen: soft, non tender Extremities: no edema Neurologic/Psychiatric: other - sleeping Laboratory Tests Test 06/01/20 20:00 06/02/20 04:00 White Blood Count 4.5 K/UL (4.8-10.8) L 4.9 K/UL (4.8-10.8) Red Blood Count 2.59 M/UL (4.20-5.40) L 2.64 M/UL (4.20-5.40) L Hemoglobin 8.2 G/DL (12.0-16.0) L 8.4 G/DL (12.0-16.0) L Hematocrit 23.9 % (37.0-47.0) L 25.3 % (37.0-47.0) L Mean Corpuscular Volume 92 FL (80-99) 96 FL (80-99) Mean Corpuscular Hemoglobin 31.8 PG (27.0-31.0) H 31.8 PG (27.0-31.0) H Mean Corpuscular Hemoglobin Concent 34.5 G/DL (32.0-36.0) 33.2 G/DL (32.0-36.0) Red Cell Distribution Width 17.1 % (11.6-14.8) H 16.1 % (11.6-14.8) H Platelet Count 151 K/UL (150-450) 155 K/UL (150-450) Mean Platelet Volume 6.8 FL (6.5-10.1) 7.6 FL (6.5-10.1) Neutrophils (%) (Auto) 62.2 % (45.0-75.0) 59.1 % (45.0-75.0) Lymphocytes (%) (Auto) 29.9 % (20.0-45.0) 31.8 % (20.0-45.0) Monocytes (%) (Auto) 5.7 % (1.0-10.0) 7.3 % (1.0-10.0) Eosinophils (%) (Auto) 1.4 % (0.0-3.0) 1.2 % (0.0-3.0) Basophils (%) (Auto) 0.8 % (0.0-2.0) 0.6 % (0.0-2.0) Sodium Level 145 MMOL/L (136-145) Potassium Level 4.0 MMOL/L (3.5-5.1) Chloride Level 104 MMOL/L (98-107) Carbon Dioxide Level 40 MMOL/L (21-32) H Anion Gap -1 mmol/L (5-15) L Blood Urea Nitrogen 14 mg/dL (7-18) Creatinine 1.0 MG/DL (0.55-1.30) Estimat Glomerular Filtration Rate 53.3 mL/min (>60) Glucose Level 66 MG/DL (74-106) L Calcium Level 8.1 MG/DL (8.5-10.1) L Phosphorus Level 2.0 MG/DL (2.5-4.9) L Total Bilirubin 1.2 MG/DL (0.2-1.0) H Direct Bilirubin 0.2 MG/DL (0.0-0.3) Aspartate Amino Transf (AST/SGOT) 15 U/L (15-37) Alanine Aminotransferase (ALT/SGPT) 13 U/L (12-78) Alkaline Phosphatase 47 U/L (46-116) Total Protein 6.7 G/DL (6.4-8.2) Albumin 2.8 G/DL (3.4-5.0) L Globulin 3.9 g/dL Albumin/Globulin Ratio 0.7 (1.0-2.7) L Current Medications Medications (Trade) Dose Ordered Sig/Angie Route PRN Reason Start Time Stop Time Status Last Admin Dose Admin Acetaminophen (Tylenol) 650 mg Q6H PRN NG Fever >100.5 05/14/20 21:00 06/13/20 20:59 05/14/20 21:10 Acetaminophen (Tylenol) 650 mg Q6H PRN NG Mild Pain (Pain Scale 1-3) 05/14/20 21:00 06/13/20 20:59 05/17/20 11:06 Chlorhexidine Gluconate (Ruba-Hex 2%) 1 applic DAILY@1999 TOPIC 05/31/20 20:00 08/29/20 19:59 06/01/20 20:05 Clonidine HCl (Catapres Tab) 0.1 mg Q4H PRN ORAL sbp>170 05/11/20 17:15 08/09/20 17:14 Docusate Sodium (Colace) 100 mg TWICE A DAY ORAL 05/25/20 18:00 06/24/20 17:59 06/02/20 09:24 Furosemide (Lasix) 40 mg EVERY 12 HOURS IV 05/30/20 09:30 06/29/20 09:29 06/02/20 09:24 Haloperidol Lactate (Haldol) 5 mg Q6H PRN IM Agitation 05/13/20 20:45 06/27/20 20:44 05/28/20 02:40 Heparin Sodium (Porcine) (Heparin 5000 units/ml) 5,000 units EVERY 12 HOURS SUBQ 05/25/20 21:00 07/09/20 20:59 06/02/20 09:25 Heparin Sodium/ Sodium Chloride (Heparin 1000 units/500ml Premix) 1,000 unit ONCE PRN INJ radiology use 05/30/20 13:15 06/02/20 13:14 Levothyroxine Sodium (Synthroid) 50 mcg DAILY@0630 ORAL 05/14/20 06:30 06/13/20 06:29 06/02/20 06:03 Lidocaine HCl (Xylocaine 1% 30ml) 30 ml ONCE PRN INJ radiology use 05/30/20 13:15 06/02/20 13:14 Pantoprazole (Protonix) 40 mg Q12HR ORAL 05/26/20 21:00 06/25/20 20:59 06/02/20 09:24 Polyethylene Glycol (Miralax) 17 gm BEDTIME ORAL 05/25/20 21:00 06/24/20 20:59 06/01/20 20:55 Potassium Chloride (K-Dur) 40 meq TWICE A DAY ORAL 05/29/20 10:30 08/27/20 10:29 06/02/20 09:24 Quetiapine Fumarate (SEROqueL) 50 mg Q12HR ORAL 05/24/20 21:00 07/08/20 20:59 06/02/20 09:24 Lei Chan MD Jun 02, 2020 10:59
--- NOTE | 2020-06-02 11:43 | Cardiac Electrophysiology PN ---
Assessment/Plan Assessment/Plan 1. Covid PNA and respiratory failure. S/P Remdesevir and Dexamethasone Self extubated on 55% venturi Mask Off Abx per ID 2. SSS with 8 pauses of more than 3 seconds including 9 and 10 second pauses off any QUEZADA or AVN blockers. Will need pacer consent from conservator/court and ID clearance 3. Hypotension. Off Dopamine. EF 55% 4. Schizophrenia and psychosis. YOSELYN RN Subjective Subjective Self extubated on 05/22/20 on 2 liter NC in Covid isolation S/P Left arm PICC line placement as has no iv access. Got iv K and MG Had multiple pauses of more than 3 seconds including a 4s and 7s and a 10 second pause at 1 AM on 05/31 Had pauses of 7, 8 and 6 seconds again yesterday. Conservator deferred authorization for PPM to court. Objective Last 24 Hour Vital Signs Date Time Temp Pulse Resp B/P (MAP) Pulse Ox O2 Delivery O2 Flow Rate FiO2 06/02/20 08:00 Venturi Mask 8.0 06/02/20 08:00 14.0 06/02/20 08:00 78 06/02/20 08:00 97.1 84 18 113/44 (67) 98 06/02/20 04:00 97.7 69 22 111/48 (69) 97 06/02/20 04:00 Venturi Mask 8.0 06/02/20 04:00 14.0 06/02/20 03:42 73 06/02/20 00:00 98.1 61 23 109/51 (70) 94 06/02/20 00:00 54 06/02/20 00:00 15.0 06/02/20 00:00 Non-Rebreather 15.0 06/01/20 20:00 78 06/01/20 20:00 Non-Rebreather 15.0 06/01/20 20:00 15.0 06/01/20 20:00 98.5 75 22 103/45 (64) 98 06/01/20 16:00 97.7 79 20 100/64 (76) 98 06/01/20 16:00 15.0 06/01/20 16:00 Non-Rebreather 15.0 06/01/20 16:00 64 06/01/20 12:00 15.0 06/01/20 12:00 97.3 66 21 101/49 (66) 98 06/01/20 12:00 58 06/01/20 12:00 Non-Rebreather 15.0 Intake and Output 06/01/20 06/02/20 19:00 07:00 Intake Total 180 ml Output Total 740 ml Balance -560 ml Intake Oral 180 ml Output Urine Total 740 ml Laboratory Tests Test 06/01/20 20:00 06/02/20 04:00 White Blood Count 4.5 K/UL (4.8-10.8) L 4.9 K/UL (4.8-10.8) Red Blood Count 2.59 M/UL (4.20-5.40) L 2.64 M/UL (4.20-5.40) L Hemoglobin 8.2 G/DL (12.0-16.0) L 8.4 G/DL (12.0-16.0) L Hematocrit 23.9 % (37.0-47.0) L 25.3 % (37.0-47.0) L Mean Corpuscular Volume 92 FL (80-99) 96 FL (80-99) Mean Corpuscular Hemoglobin 31.8 PG (27.0-31.0) H 31.8 PG (27.0-31.0) H Mean Corpuscular Hemoglobin Concent 34.5 G/DL (32.0-36.0) 33.2 G/DL (32.0-36.0) Red Cell Distribution Width 17.1 % (11.6-14.8) H 16.1 % (11.6-14.8) H Platelet Count 151 K/UL (150-450) 155 K/UL (150-450) Mean Platelet Volume 6.8 FL (6.5-10.1) 7.6 FL (6.5-10.1) Neutrophils (%) (Auto) 62.2 % (45.0-75.0) 59.1 % (45.0-75.0) Lymphocytes (%) (Auto) 29.9 % (20.0-45.0) 31.8 % (20.0-45.0) Monocytes (%) (Auto) 5.7 % (1.0-10.0) 7.3 % (1.0-10.0) Eosinophils (%) (Auto) 1.4 % (0.0-3.0) 1.2 % (0.0-3.0) Basophils (%) (Auto) 0.8 % (0.0-2.0) 0.6 % (0.0-2.0) Sodium Level 145 MMOL/L (136-145) Potassium Level 4.0 MMOL/L (3.5-5.1) Chloride Level 104 MMOL/L (98-107) Carbon Dioxide Level 40 MMOL/L (21-32) H Anion Gap -1 mmol/L (5-15) L Blood Urea Nitrogen 14 mg/dL (7-18) Creatinine 1.0 MG/DL (0.55-1.30) Estimat Glomerular Filtration Rate 53.3 mL/min (>60) Glucose Level 66 MG/DL (74-106) L Calcium Level 8.1 MG/DL (8.5-10.1) L Phosphorus Level 2.0 MG/DL (2.5-4.9) L Total Bilirubin 1.2 MG/DL (0.2-1.0) H Direct Bilirubin 0.2 MG/DL (0.0-0.3) Aspartate Amino Transf (AST/SGOT) 15 U/L (15-37) Alanine Aminotransferase (ALT/SGPT) 13 U/L (12-78) Alkaline Phosphatase 47 U/L (46-116) Total Protein 6.7 G/DL (6.4-8.2) Albumin 2.8 G/DL (3.4-5.0) L Globulin 3.9 g/dL Albumin/Globulin Ratio 0.7 (1.0-2.7) L Objective HEAD AND NECK: Positive JVD. LUNGS: Decreased breath sounds. CARDIOVASCULAR: Regular S1 and S2 with no gallop. ABDOMEN: Obese. EXTREMITIES: Bilateral 2+ pitting edema. Cameron Davies MD Jun 02, 2020 11:43
--- NOTE | 2020-06-02 11:45 | General Progress Note ---
Subjective ROS Limited/Unobtainable: Yes Allergies: Coded Allergies: LITHIUM (Verified Allergy, Unknown, 02/07/19) Objective Last 24 Hour Vital Signs Date Time Temp Pulse Resp B/P (MAP) Pulse Ox O2 Delivery O2 Flow Rate FiO2 06/02/20 08:00 Venturi Mask 8.0 06/02/20 08:00 14.0 06/02/20 08:00 78 06/02/20 08:00 97.1 84 18 113/44 (67) 98 06/02/20 04:00 97.7 69 22 111/48 (69) 97 06/02/20 04:00 Venturi Mask 8.0 06/02/20 04:00 14.0 06/02/20 03:42 73 06/02/20 00:00 98.1 61 23 109/51 (70) 94 06/02/20 00:00 54 06/02/20 00:00 15.0 06/02/20 00:00 Non-Rebreather 15.0 06/01/20 20:00 78 06/01/20 20:00 Non-Rebreather 15.0 06/01/20 20:00 15.0 06/01/20 20:00 98.5 75 22 103/45 (64) 98 06/01/20 16:00 97.7 79 20 100/64 (76) 98 06/01/20 16:00 15.0 06/01/20 16:00 Non-Rebreather 15.0 06/01/20 16:00 64 06/01/20 12:00 15.0 06/01/20 12:00 97.3 66 21 101/49 (66) 98 06/01/20 12:00 58 06/01/20 12:00 Non-Rebreather 15.0 Intake and Output 06/01/20 06/02/20 19:00 07:00 Intake Total 180 ml Output Total 740 ml Balance -560 ml Intake Oral 180 ml Output Urine Total 740 ml Laboratory Tests 06/01/20 20:00: White Blood Count 4.5L, Red Blood Count 2.59L, Hemoglobin 8.2L, Hematocrit 23.9L , Mean Corpuscular Volume 92, Mean Corpuscular Hemoglobin 31.8H, Mean Corpuscular Hemoglobin Concent 34.5, Red Cell Distribution Width 17.1H, Platelet Count 151, Mean Platelet Volume 6.8, Neutrophils (%) (Auto) 62.2, Lymphocytes (%) (Auto) 29.9, Monocytes (%) (Auto) 5.7, Eosinophils (%) (Auto) 1.4, Basophils (%) (Auto) 0.8 06/02/20 04:00: White Blood Count 4.9, Red Blood Count 2.64L, Hemoglobin 8.4L, Hematocrit 25.3L, Mean Corpuscular Volume 96, Mean Corpuscular Hemoglobin 31.8H, Mean Corpuscular Hemoglobin Concent 33.2, Red Cell Distribution Width 16.1H, Platelet Count 155, Mean Platelet Volume 7.6, Neutrophils (%) (Auto) 59.1, Lymphocytes (%) (Auto) 31.8, Monocytes (%) (Auto) 7.3, Eosinophils (%) (Auto) 1.2, Basophils (%) (Auto) 0.6, Sodium Level 145, Potassium Level 4.0, Chloride Level 104, Carbon Dioxide Level 40H, Anion Gap -1L, Blood Urea Nitrogen 14, Creatinine 1.0, Estimat Glomerular Filtration Rate 53.3, Glucose Level 66L, Calcium Level 8.1L, Phosphorus Level 2.0L, Total Bilirubin 1.2H, Direct Bilirubin 0.2, Aspartate Amino Transf (AST/SGOT) 15, Alanine Aminotransferase (ALT/SGPT) 13, Alkaline Phosphatase 47, Total Protein 6.7, Albumin 2.8L, Globulin 3.9, Albumin/Globulin Ratio 0.7L Height (Feet): 5 Height (Inches): 3.00 Weight (Pounds): 183 Assessment/Plan Problem List: (1) Anemia ICD Codes: D64.9 - Anemia, unspecified SNOMED: 002758656 (2) Hypercapnic respiratory failure ICD Codes: J96.92 - Respiratory failure, unspecified with hypercapnia SNOMED: 701168698 (3) COVID-19 ICD Codes: U07.1 - COVID-19 SNOMED: 875821755 (4) COPD (chronic obstructive pulmonary disease) ICD Codes: J44.9 - Chronic obstructive pulmonary disease, unspecified SNOMED: 53038172 (5) Psychosis ICD Codes: F29 - Unspecified psychosis not due to a substance or known physiological condition SNOMED: 36686414 (6) Hypoxia ICD Codes: R09.02 - Hypoxemia SNOMED: 471317413 (7) Renal failure (ARF), acute on chronic ICD Codes: N17.9 - Acute kidney failure, unspecified; N18.9 - Chronic kidney disease, unspecified SNOMED: 903122670 (8) CHF exacerbation ICD Codes: I50.9 - Heart failure, unspecified SNOMED: 209195352, [id number] Status: progressing, unchanged, deteriorating Assessment/Plan: afebrile has pause pacer per dr pichardo high risk patient covid positive pna sepsis copd exac chf exac Dani Perera MD Jun 02, 2020 11:45
[2020-06-02 12:00] VITALS: BP 121/56
--- NOTE | 2020-06-02 12:32 | Pulmonology Progress Note ---
Subjective ROS Limited/Unobtainable: Yes Interval Events: Refusing all PO medications Constitutional: Denies: fever HEENT: Repors: no symptoms Respiratory: Reports: no symptoms Cardiovascular: Reports: no symptoms Gastrointestinal/Abdominal: Reports: no symptoms Genitourinary: Reports: no symptoms Allergies: Coded Allergies: LITHIUM (Verified Allergy, Unknown, 02/07/19) Objective Last 24 Hour Vital Signs Date Time Temp Pulse Resp B/P (MAP) Pulse Ox O2 Delivery O2 Flow Rate FiO2 06/02/20 08:00 Venturi Mask 8.0 06/02/20 08:00 14.0 06/02/20 08:00 78 06/02/20 08:00 97.1 84 18 113/44 (67) 98 06/02/20 04:00 97.7 69 22 111/48 (69) 97 06/02/20 04:00 Venturi Mask 8.0 06/02/20 04:00 14.0 06/02/20 03:42 73 06/02/20 00:00 98.1 61 23 109/51 (70) 94 06/02/20 00:00 54 06/02/20 00:00 15.0 06/02/20 00:00 Non-Rebreather 15.0 06/01/20 20:00 78 06/01/20 20:00 Non-Rebreather 15.0 06/01/20 20:00 15.0 06/01/20 20:00 98.5 75 22 103/45 (64) 98 06/01/20 16:00 97.7 79 20 100/64 (76) 98 06/01/20 16:00 15.0 06/01/20 16:00 Non-Rebreather 15.0 06/01/20 16:00 64 Intake and Output 06/01/20 06/02/20 19:00 07:00 Intake Total 180 ml Output Total 740 ml Balance -560 ml Intake Oral 180 ml Output Urine Total 740 ml General Appearance: no acute distress HEENT: normocephalic Respiratory: no respiratory distress, decreased breath sounds Cardiovascular: normal rate Abdomen: soft, non tender, other - obese, NG tube Extremities: other - b/l 2+ pitting edema Neurologic: disoriented Laboratory Tests 06/01/20 20:00: White Blood Count 4.5L, Red Blood Count 2.59L, Hemoglobin 8.2L, Hematocrit 23.9L , Mean Corpuscular Volume 92, Mean Corpuscular Hemoglobin 31.8H, Mean Corpuscular Hemoglobin Concent 34.5, Red Cell Distribution Width 17.1H, Platelet Count 151, Mean Platelet Volume 6.8, Neutrophils (%) (Auto) 62.2, Lymphocytes (%) (Auto) 29.9, Monocytes (%) (Auto) 5.7, Eosinophils (%) (Auto) 1.4, Basophils (%) (Auto) 0.8 06/02/20 04:00: White Blood Count 4.9, Red Blood Count 2.64L, Hemoglobin 8.4L, Hematocrit 25.3L, Mean Corpuscular Volume 96, Mean Corpuscular Hemoglobin 31.8H, Mean Corpuscular Hemoglobin Concent 33.2, Red Cell Distribution Width 16.1H, Platelet Count 155, Mean Platelet Volume 7.6, Neutrophils (%) (Auto) 59.1, Lymphocytes (%) (Auto) 31.8, Monocytes (%) (Auto) 7.3, Eosinophils (%) (Auto) 1.2, Basophils (%) (Auto) 0.6, Sodium Level 145, Potassium Level 4.0, Chloride Level 104, Carbon Dioxide Level 40H, Anion Gap -1L, Blood Urea Nitrogen 14, Creatinine 1.0, Estimat Glomerular Filtration Rate 53.3, Glucose Level 66L, Calcium Level 8.1L, Phosphorus Level 2.0L, Total Bilirubin 1.2H, Direct Bilirubin 0.2, Aspartate Amino Transf (AST/SGOT) 15, Alanine Aminotransferase (ALT/SGPT) 13, Alkaline Phosphatase 47, Total Protein 6.7, Albumin 2.8L, Globulin 3.9, Albumin/Globulin Ratio 0.7L Current Medications Medications (Trade) Dose Ordered Sig/Angie Route PRN Reason Start Time Stop Time Status Last Admin Dose Admin Acetaminophen (Tylenol) 650 mg Q6H PRN NG Fever >100.5 05/14/20 21:00 06/13/20 20:59 05/14/20 21:10 Acetaminophen (Tylenol) 650 mg Q6H PRN NG Mild Pain (Pain Scale 1-3) 05/14/20 21:00 06/13/20 20:59 05/17/20 11:06 Chlorhexidine Gluconate (Ruba-Hex 2%) 1 applic DAILY@2000 TOPIC 05/31/20 20:00 08/29/20 19:59 06/01/20 20:05 Clonidine HCl (Catapres Tab) 0.1 mg Q4H PRN ORAL sbp>170 05/11/20 17:15 08/09/20 17:14 Docusate Sodium (Colace) 100 mg TWICE A DAY ORAL 05/25/20 18:00 06/24/20 17:59 06/02/20 09:24 Furosemide (Lasix) 40 mg EVERY 12 HOURS IV 05/30/20 09:30 06/29/20 09:29 06/02/20 09:24 Haloperidol Lactate (Haldol) 5 mg Q6H PRN IM Agitation 05/13/20 20:45 06/27/20 20:44 05/28/20 02:40 Heparin Sodium (Porcine) (Heparin 5000 units/ml) 5,000 units EVERY 12 HOURS SUBQ 05/25/20 21:00 07/09/20 20:59 06/02/20 09:25 Heparin Sodium/ Sodium Chloride (Heparin 1000 units/500ml Premix) 1,000 unit ONCE PRN INJ radiology use 05/30/20 13:15 06/02/20 13:14 Levothyroxine Sodium (Synthroid) 50 mcg DAILY@0630 ORAL 05/14/20 06:30 06/13/20 06:29 06/02/20 06:03 Lidocaine HCl (Xylocaine 1% 30ml) 30 ml ONCE PRN INJ radiology use 05/30/20 13:15 06/02/20 13:14 Pantoprazole (Protonix) 40 mg Q12HR ORAL 05/26/20 21:00 06/25/20 20:59 06/02/20 09:24 Polyethylene Glycol (Miralax) 17 gm BEDTIME ORAL 05/25/20 21:00 06/24/20 20:59 06/01/20 20:55 Potassium Chloride (K-Dur) 40 meq TWICE A DAY ORAL 05/29/20 10:30 08/27/20 10:29 06/02/20 09:24 Quetiapine Fumarate (SEROqueL) 50 mg Q12HR ORAL 05/24/20 21:00 07/08/20 20:59 06/02/20 09:24 Assessment/Plan Assessment/Plan 1. Bilateral COVID-19 multilobar pneumonia. - s/p ETT - Afebrile - s/p Azithromycin, Ceftriaxone, dexamethasone - s/p remdesivir - CXR 05/31 Patchy bilateral airspace consolidations, consistent with multif ocal infiltrate, similar in appearance to previous study from 05/30; Stable, small bilateral pleural effusions. 2. Hx of COPD. 3. Schizophrenia/psychosis - On haloperidol per Dr. Hernandez; refusing all PO medications 4. Hypoxia. -Now on 8L/min via mask - Latest CXR (05/31) unchanged - on Lasix 40 mg IV BID - recommend continues diuresis with ongoing BUN/Cr monitoring 5. Anemia DVT ppx Sincere Myers MD Jun 02, 2020 12:32
--- NOTE | 2020-06-02 13:03 | Nephrology Progress Note ---
Assessment/Plan Problem List: (1) Renal failure (ARF), acute on chronic (2) Hypercapnic respiratory failure (3) CHF exacerbation (4) Anemia Assessment Azotemia/renal failure Acute respiratory failure most likely secondary to CHF, on mechanical ventilation History of COPD Hypertension Hyperlipemia Schizophrenia/psychosis Plan June 02: Labs reviewed. Low phosphorus replaced. Patient has periodic severe bradycardia. Continue per cardiology. June 01: Labs reviewed. Low magnesium replaced. Renal parameters stable. Hemoglobin level reasonable. Continue per consultants. May 31: Labs reviewed. Abnormal electrolytes at rest. Hemoglobin higher. Discussed with DARREL Cooper. Continue per consultants. May 30: Lab reviewed. Potassium and phosphorus replaced. Hemoglobin higher after transfusion. Continue per consultants. May 29: Lab reviewed. Patient anemic. Electrolyte abnormalities reviewed and addressed. Continue per consultants. Remains stable from renal standpoint of view. May 28: Patient was not transfused despite of my order since yesterday. Will defer transfusion to PMD/family assistant. Patient remains stable from renal standpoint of view. Continue per consultants. Discussed with Marlene nursing charge in [place]. May 27: Remains on Venturi mask. Labs reviewed. Abnormal electrolytes addressed. Hemoglobin low. Will transfuse 1 unit of packed RBCs today May 26: On Venturi mask. Labs reviewed. Abnormal electrolytes addressed. Continue per consultants and pulmonary support. May 25: On Venturi mask. Lethargic. No labs drawn today. Will monitor renal parameters. Per orders. May 24: Remains extubated. Will start on diet with high alert for possible aspiration. Continue to monitor renal parameters. May 23: Continues to be extubated. On nonrebreathing mask. Labs reviewed. Renal parameters stable. Discussed with RN. Continue per current management. May 22: Now extubated on nonrebreathing mask. Labs reviewed. Renal parameters stable. Abnormal electrolytes addressed. Discussed with RN. May 21: Remains intubated. Labs reviewed. Abnormal electrolytes addressed. Discussed with RN. May 20: Remains intubated. Abnormal electrolyte noted on today's lab results and addressed. Continue per consultants. May 19: Patient remains intubated. Labs reviewed. Abnormal electrolytes addressed. Continue per current management. May 18: Patient seen in ICU. Remains intubated. Weaning is being tried. Discussed with RN. Labs reviewed. Abnormal electrolyte addressed. Continue per consultants. May 17: Labs reviewed. Remains intubated. Stable from renal standpoint of view. Continue weaning. Discussed with RN. May 16: Labs reviewed. Remains intubated. Remains full code. Stable from renal standpoint of view. Abnormal electrolytes addressed. May 15: Labs reviewed. Renal parameters stable. Discussed with RN. Patient remains intubated on ventilator and full code. Continue per consultants. May 14: Labs reviewed. Discussed with RN. Abnormal electrolyte addressed. Continue per current management. Patient seen in ICU. Discussed with RN. Today's labs pending. Patient remains on 6 mics of dopamine. Pulmonary support Monitor intake and output Monitor electrolytes Continue per consultants Per orders Subjective ROS Limited/Unobtainable: No Constitutional: Reports: malaise, weakness Objective Objective Last 24 Hour Vital Signs Date Time Temp Pulse Resp B/P (MAP) Pulse Ox O2 Delivery O2 Flow Rate FiO2 06/02/20 08:00 Venturi Mask 8.0 06/02/20 08:00 14.0 06/02/20 08:00 78 06/02/20 08:00 97.1 84 18 113/44 (67) 98 06/02/20 04:00 97.7 69 22 111/48 (69) 97 06/02/20 04:00 Venturi Mask 8.0 06/02/20 04:00 14.0 06/02/20 03:42 73 06/02/20 00:00 98.1 61 23 109/51 (70) 94 06/02/20 00:00 54 06/02/20 00:00 15.0 06/02/20 00:00 Non-Rebreather 15.0 06/01/20 20:00 78 06/01/20 20:00 Non-Rebreather 15.0 06/01/20 20:00 15.0 06/01/20 20:00 98.5 75 22 103/45 (64) 98 06/01/20 16:00 97.7 79 20 100/64 (76) 98 06/01/20 16:00 15.0 06/01/20 16:00 Non-Rebreather 15.0 06/01/20 16:00 64 Intake and Output 06/01/20 06/02/20 19:00 07:00 Intake Total 180 ml Output Total 740 ml Balance -560 ml Intake Oral 180 ml Output Urine Total 740 ml Current Medications Medications (Trade) Dose Ordered Sig/Angie Route PRN Reason Start Time Stop Time Status Last Admin Dose Admin Acetaminophen (Tylenol) 650 mg Q6H PRN NG Fever >100.5 05/14/20 21:00 06/13/20 20:59 05/14/20 21:10 Acetaminophen (Tylenol) 650 mg Q6H PRN NG Mild Pain (Pain Scale 1-3) 05/14/20 21:00 06/13/20 20:59 05/17/20 11:06 Chlorhexidine Gluconate (Ruba-Hex 2%) 1 applic DAILY@2000 TOPIC 05/31/20 20:00 08/29/20 19:59 06/01/20 20:05 Clonidine HCl (Catapres Tab) 0.1 mg Q4H PRN ORAL sbp>170 05/11/20 17:15 08/09/20 17:14 Docusate Sodium (Colace) 100 mg TWICE A DAY ORAL 05/25/20 18:00 06/24/20 17:59 06/02/20 09:24 Furosemide (Lasix) 40 mg EVERY 12 HOURS IV 05/30/20 09:30 06/29/20 09:29 06/02/20 09:24 Haloperidol Lactate (Haldol) 5 mg Q6H PRN IM Agitation 05/13/20 20:45 06/27/20 20:44 05/28/20 02:40 Heparin Sodium (Porcine) (Heparin 5000 units/ml) 5,000 units EVERY 12 HOURS SUBQ 05/25/20 21:00 07/09/20 20:59 06/02/20 09:25 Heparin Sodium/ Sodium Chloride (Heparin 1000 units/500ml Premix) 1,000 unit ONCE PRN INJ radiology use 05/30/20 13:15 06/02/20 13:14 Levothyroxine Sodium (Synthroid) 50 mcg DAILY@0630 ORAL 05/14/20 06:30 06/13/20 06:29 06/02/20 06:03 Lidocaine HCl (Xylocaine 1% 30ml) 30 ml ONCE PRN INJ radiology use 05/30/20 13:15 06/02/20 13:14 Pantoprazole (Protonix) 40 mg Q12HR ORAL 05/26/20 21:00 06/25/20 20:59 06/02/20 09:24 Polyethylene Glycol (Miralax) 17 gm BEDTIME ORAL 05/25/20 21:00 06/24/20 20:59 06/01/20 20:55 Potassium Chloride (K-Dur) 40 meq TWICE A DAY ORAL 05/29/20 10:30 08/27/20 10:29 06/02/20 09:24 Quetiapine Fumarate (SEROqueL) 50 mg Q12HR ORAL 05/24/20 21:00 07/08/20 20:59 06/02/20 09:24 Laboratory Tests 06/01/20 20:00: White Blood Count 4.5L, Red Blood Count 2.59L, Hemoglobin 8.2L, Hematocrit 23.9L , Mean Corpuscular Volume 92, Mean Corpuscular Hemoglobin 31.8H, Mean Corpuscular Hemoglobin Concent 34.5, Red Cell Distribution Width 17.1H, Platelet Count 151, Mean Platelet Volume 6.8, Neutrophils (%) (Auto) 62.2, Lymphocytes (%) (Auto) 29.9, Monocytes (%) (Auto) 5.7, Eosinophils (%) (Auto) 1.4, Basophils (%) (Auto) 0.8 06/02/20 04:00: White Blood Count 4.9, Red Blood Count 2.64L, Hemoglobin 8.4L, Hematocrit 25.3L, Mean Corpuscular Volume 96, Mean Corpuscular Hemoglobin 31.8H, Mean Corpuscular Hemoglobin Concent 33.2, Red Cell Distribution Width 16.1H, Platelet Count 155, Mean Platelet Volume 7.6, Neutrophils (%) (Auto) 59.1, Lymphocytes (%) (Auto) 31.8, Monocytes (%) (Auto) 7.3, Eosinophils (%) (Auto) 1.2, Basophils (%) (Auto) 0.6, Sodium Level 145, Potassium Level 4.0, Chloride Level 104, Carbon Dioxide Level 40H, Anion Gap -1L, Blood Urea Nitrogen 14, Creatinine 1.0, Estimat Glomerular Filtration Rate 53.3, Glucose Level 66L, Calcium Level 8.1L, Phosphorus Level 2.0L, Total Bilirubin 1.2H, Direct Bilirubin 0.2, Aspartate Amino Transf (AST/SGOT) 15, Alanine Aminotransferase (ALT/SGPT) 13, Alkaline Phosphatase 47, Total Protein 6.7, Albumin 2.8L, Globulin 3.9, Albumin/Globulin Ratio 0.7L Height (Feet): 5 Height (Inches): 3.00 Weight (Pounds): 183 General Appearance: no apparent distress Cardiovascular: bradycardia, arrhythmia Respiratory/Chest: decreased breath sounds Abdomen: distended Bryan Ochoa MD Jun 02, 2020 13:03
[2020-06-02] MEDS ORDERED: Sodium Phosphate 10 MM in NS 275 ML IVPB ONE (15:00)
[2020-06-02 16:00] VITALS: BP 117/49
--- NOTE | 2020-06-02 17:09 | General Progress Note ---
Subjective Allergies: Coded Allergies: LITHIUM (Verified Allergy, Unknown, 02/07/19) Subjective above noted d/w RN on face mask O2 no complaints Objective Last 24 Hour Vital Signs Date Time Temp Pulse Resp B/P (MAP) Pulse Ox O2 Delivery O2 Flow Rate FiO2 06/02/20 16:00 14.0 06/02/20 16:00 Venturi Mask 8.0 06/02/20 16:00 60 06/02/20 16:00 97.7 61 20 117/49 (71) 98 06/02/20 12:00 Venturi Mask 8.0 06/02/20 12:00 97.2 68 18 121/56 (77) 97 06/02/20 12:00 58 06/02/20 12:00 14.0 06/02/20 08:00 Venturi Mask 8.0 06/02/20 08:00 14.0 06/02/20 08:00 78 06/02/20 08:00 97.1 84 18 113/44 (67) 98 06/02/20 04:00 97.7 69 22 111/48 (69) 97 06/02/20 04:00 Venturi Mask 8.0 06/02/20 04:00 14.0 06/02/20 03:42 73 06/02/20 00:00 98.1 61 23 109/51 (70) 94 06/02/20 00:00 54 06/02/20 00:00 15.0 06/02/20 00:00 Non-Rebreather 15.0 06/01/20 20:00 78 06/01/20 20:00 Non-Rebreather 15.0 06/01/20 20:00 15.0 06/01/20 20:00 98.5 75 22 103/45 (64) 98 Intake and Output 06/01/20 06/02/20 19:00 07:00 Intake Total 180 ml Output Total 740 ml Balance -560 ml Intake Oral 180 ml Output Urine Total 740 ml Laboratory Tests 06/01/20 20:00: White Blood Count 4.5L, Red Blood Count 2.59L, Hemoglobin 8.2L, Hematocrit 23.9L , Mean Corpuscular Volume 92, Mean Corpuscular Hemoglobin 31.8H, Mean Corpuscular Hemoglobin Concent 34.5, Red Cell Distribution Width 17.1H, Platelet Count 151, Mean Platelet Volume 6.8, Neutrophils (%) (Auto) 62.2, Lymphocytes (%) (Auto) 29.9, Monocytes (%) (Auto) 5.7, Eosinophils (%) (Auto) 1.4, Basophils (%) (Auto) 0.8 06/02/20 04:00: White Blood Count 4.9, Red Blood Count 2.64L, Hemoglobin 8.4L, Hematocrit 25.3L, Mean Corpuscular Volume 96, Mean Corpuscular Hemoglobin 31.8H, Mean Corpuscular Hemoglobin Concent 33.2, Red Cell Distribution Width 16.1H, Platelet Count 155, Mean Platelet Volume 7.6, Neutrophils (%) (Auto) 59.1, Lymphocytes (%) (Auto) 31.8, Monocytes (%) (Auto) 7.3, Eosinophils (%) (Auto) 1.2, Basophils (%) (Auto) 0.6, Sodium Level 145, Potassium Level 4.0, Chloride Level 104, Carbon Dioxide Level 40H, Anion Gap -1L, Blood Urea Nitrogen 14, Creatinine 1.0, Estimat Glomerular Filtration Rate 53.3, Glucose Level 66L, Calcium Level 8.1L, Phosphorus Level 2.0L, Total Bilirubin 1.2H, Direct Bilirubin 0.2, Aspartate Amino Transf (AST/SGOT) 15, Alanine Aminotransferase (ALT/SGPT) 13, Alkaline Phosphatase 47, Total Protein 6.7, Albumin 2.8L, Globulin 3.9, Albumin/Globulin Ratio 0.7L Height (Feet): 5 Height (Inches): 3.00 Weight (Pounds): 183 Objective WDWN WW NCAT supple CTA RR abd soft ND NT no edema non focal Assessment/Plan Status: progressing, unchanged, deteriorating Assessment/Plan: Assessment/Plan (1) Hypertension (2) Schizophrenia (3) Hyperlipidemia (4) Parkinson disease (5) Anemia (6) Obese (7) COVID (+) (8) Hypoxia Recommendations PPI BID Follow H&H Transfuse to keep Hg>7.0 po as tolerated - per ST rec GI procedures at a later date, if needed bowel regimen will see patient later this week Aria Chicas MD Jun 02, 2020 17:09
--- NOTE | 2020-06-02 17:20 | Surgery Progress Note ---
Surgery Progress Note Subjective Additional Comments h/h stable labs improved comfortable no n/v Objective Last 24 Hour Vital Signs Date Time Temp Pulse Resp B/P (MAP) Pulse Ox O2 Delivery O2 Flow Rate FiO2 06/02/20 16:00 14.0 06/02/20 16:00 Venturi Mask 8.0 06/02/20 16:00 60 06/02/20 16:00 97.7 61 20 117/49 (71) 98 06/02/20 12:00 Venturi Mask 8.0 06/02/20 12:00 97.2 68 18 121/56 (77) 97 06/02/20 12:00 58 06/02/20 12:00 14.0 06/02/20 08:00 Venturi Mask 8.0 06/02/20 08:00 14.0 06/02/20 08:00 78 06/02/20 08:00 97.1 84 18 113/44 (67) 98 06/02/20 04:00 97.7 69 22 111/48 (69) 97 06/02/20 04:00 Venturi Mask 8.0 06/02/20 04:00 14.0 06/02/20 03:42 73 06/02/20 00:00 98.1 61 23 109/51 (70) 94 06/02/20 00:00 54 06/02/20 00:00 15.0 06/02/20 00:00 Non-Rebreather 15.0 06/01/20 20:00 78 06/01/20 20:00 Non-Rebreather 15.0 06/01/20 20:00 15.0 06/01/20 20:00 98.5 75 22 103/45 (64) 98 I&O Intake and Output 06/01/20 06/02/20 19:00 07:00 Intake Total 180 ml Output Total 740 ml Balance -560 ml Intake Oral 180 ml Output Urine Total 740 ml Dressing: saturated Cardiovascular: RSR Respiratory: decreased breath sounds Abdomen: non-tender, present bowel sounds Extremities: no edema, no tenderness, no cyanosis Laboratory Tests Test 06/01/20 20:00 06/02/20 04:00 White Blood Count 4.5 K/UL (4.8-10.8) L 4.9 K/UL (4.8-10.8) Red Blood Count 2.59 M/UL (4.20-5.40) L 2.64 M/UL (4.20-5.40) L Hemoglobin 8.2 G/DL (12.0-16.0) L 8.4 G/DL (12.0-16.0) L Hematocrit 23.9 % (37.0-47.0) L 25.3 % (37.0-47.0) L Mean Corpuscular Volume 92 FL (80-99) 96 FL (80-99) Mean Corpuscular Hemoglobin 31.8 PG (27.0-31.0) H 31.8 PG (27.0-31.0) H Mean Corpuscular Hemoglobin Concent 34.5 G/DL (32.0-36.0) 33.2 G/DL (32.0-36.0) Red Cell Distribution Width 17.1 % (11.6-14.8) H 16.1 % (11.6-14.8) H Platelet Count 151 K/UL (150-450) 155 K/UL (150-450) Mean Platelet Volume 6.8 FL (6.5-10.1) 7.6 FL (6.5-10.1) Neutrophils (%) (Auto) 62.2 % (45.0-75.0) 59.1 % (45.0-75.0) Lymphocytes (%) (Auto) 29.9 % (20.0-45.0) 31.8 % (20.0-45.0) Monocytes (%) (Auto) 5.7 % (1.0-10.0) 7.3 % (1.0-10.0) Eosinophils (%) (Auto) 1.4 % (0.0-3.0) 1.2 % (0.0-3.0) Basophils (%) (Auto) 0.8 % (0.0-2.0) 0.6 % (0.0-2.0) Sodium Level 145 MMOL/L (136-145) Potassium Level 4.0 MMOL/L (3.5-5.1) Chloride Level 104 MMOL/L (98-107) Carbon Dioxide Level 40 MMOL/L (21-32) H Anion Gap -1 mmol/L (5-15) L Blood Urea Nitrogen 14 mg/dL (7-18) Creatinine 1.0 MG/DL (0.55-1.30) Estimat Glomerular Filtration Rate 53.3 mL/min (>60) Glucose Level 66 MG/DL (74-106) L Calcium Level 8.1 MG/DL (8.5-10.1) L Phosphorus Level 2.0 MG/DL (2.5-4.9) L Total Bilirubin 1.2 MG/DL (0.2-1.0) H Direct Bilirubin 0.2 MG/DL (0.0-0.3) Aspartate Amino Transf (AST/SGOT) 15 U/L (15-37) Alanine Aminotransferase (ALT/SGPT) 13 U/L (12-78) Alkaline Phosphatase 47 U/L (46-116) Total Protein 6.7 G/DL (6.4-8.2) Albumin 2.8 G/DL (3.4-5.0) L Globulin 3.9 g/dL Albumin/Globulin Ratio 0.7 (1.0-2.7) L Plan Problems: (1) Anemia (2) Hypercapnic respiratory failure Assessment & Plan: respiratory insufficiency requiring prolonged ventilatory support unable to wean vent safely after multiple attempts discussed with pcp. discussed with pulm discussed with patient guardian. patient unable to consent. no nok or poa. given critical care and condition not recommended to await court decision which during pandemic can take long time. medically necessary to proceed with trach in patients best interest. 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
[2020-06-02 20:00] VITALS: BP 113/60
[2020-06-02] MEDS: Miralax 17gm pkt ORAL SCH (21:11)
[2020-06-02] MEDS: Dyna-Hex 2% Top Sol 2oz TOPIC SCH (21:11)
--- NOTE | 2020-06-02 22:47 | Psychiatric Progress Note ---
Psychiatry Progress Note Psychiatry Progress Note Subjective the pt has waxing and waning o consciousness on restraints episodes agitation confused Medications Current Medications Medications (Trade) Dose Ordered Sig/Angie Route PRN Reason Start Time Stop Time Status Last Admin Dose Admin Acetaminophen (Tylenol) 650 mg Q6H PRN NG Fever >100.5 05/14/20 21:00 06/13/20 20:59 05/14/20 21:10 Acetaminophen (Tylenol) 650 mg Q6H PRN NG Mild Pain (Pain Scale 1-3) 05/14/20 21:00 06/13/20 20:59 05/17/20 11:06 Chlorhexidine Gluconate (Ruba-Hex 2%) 1 applic DAILY@1999 TOPIC 05/31/20 20:00 08/29/20 19:59 06/02/20 21:11 Clonidine HCl (Catapres Tab) 0.1 mg Q4H PRN ORAL sbp>170 05/11/20 17:15 08/09/20 17:14 Docusate Sodium (Colace) 100 mg TWICE A DAY ORAL 05/25/20 18:00 06/24/20 17:59 06/02/20 09:24 Furosemide (Lasix) 40 mg EVERY 12 HOURS IV 05/30/20 09:30 06/29/20 09:29 06/02/20 21:10 Haloperidol Lactate (Haldol) 5 mg Q6H PRN IM Agitation 05/13/20 20:45 06/27/20 20:44 05/28/20 02:40 Heparin Sodium (Porcine) (Heparin 5000 units/ml) 5,000 units EVERY 12 HOURS SUBQ 05/25/20 21:00 07/09/20 20:59 06/02/20 21:15 Levothyroxine Sodium (Synthroid) 50 mcg DAILY@0630 ORAL 05/14/20 06:30 06/13/20 06:29 06/02/20 06:03 Pantoprazole (Protonix) 40 mg Q12HR ORAL 05/26/20 21:00 06/25/20 20:59 06/02/20 21:10 Polyethylene Glycol (Miralax) 17 gm BEDTIME ORAL 05/25/20 21:00 06/24/20 20:59 06/02/20 21:11 Potassium Chloride (K-Dur) 40 meq DAILY ORAL 06/03/20 09:00 08/27/20 10:29 Quetiapine Fumarate (SEROqueL) 50 mg Q12HR ORAL 05/24/20 21:00 07/08/20 20:59 06/02/20 21:10 Neurological/Psychiatric: Denies: no symptoms, anxiety, depressed, emotional problems, headache, numbness, paresthesia, pre-existing deficit, seizure, tingling, tremors, weakness, other Allergies: Coded Allergies: LITHIUM (Verified Allergy, Unknown, 02/07/19) Objective Data Height (Feet): 5 Height (Inches): 3.00 Weight (Pounds): 183 General Appearance: no apparent distress Additional Comments: waxing and waning consciousness. Disoriented. Mood is neutral to agitation. Affect is flat. Thought process, there is paucity of thought process. Thought content, no suicidal or homicidal ideation. Cognition is impaired. Insight and judgment is impaired. Assessment/Plan Ashburn I: Ashburn I Acute toxic encephalopathy. Schizophrenia. Ashburn II Deferred. Ashburn III COVID-19. Ashburn IV Low. Ashburn V 20 PLAN: 1. Discontinue the IV Haldol. 2. Start the patient on Haldol IM. 3. The patient benefits from bilateral soft restraints. 4. Provide the patient with reality orientation. 5. Discussed with the nurse. Status: progressing, unchanged, deteriorating Status Narrative Ashburn I Acute toxic encephalopathy. Schizophrenia. Ashburn II Deferred. Ashburn III COVID-19. Ashburn IV Low. Ashburn V 20 PLAN: 1. Discontinue the IV Haldol. 2. Start the patient on Haldol IM. 3. The patient benefits from bilateral soft restraints. 4. Provide the patient with reality orientation. 5. Discussed with the nurse. Assessment/Plan: Ashburn I Acute toxic encephalopathy. Schizophrenia. Ashburn II Deferred. Ashburn III COVID-19. Ashburn IV Low. Ashburn V 20 PLAN: 1. Discontinue the IV Haldol. 2. Start the patient on Haldol IM. 3. The patient benefits from bilateral soft restraints. 4. Provide the patient with reality orientation. 5. Discussed with the nurse. Kiana Hernandez MD Jun 02, 2020 22:47
[2020-06-03] VITALS: BP 137/56
[2020-06-03 04:00] VITALS: BP 147/60
[2020-06-03 05:46] LABS: BASOPHILS % (AUTO) 1.1 % (0.0-2.0); EOSINOPHILS % (AUTO) 1.1 % (0.0-3.0); HEMATOCRIT 25.7 % (37.0-47.0); HEMOGLOBIN 8.9 G/DL (12.0-16.0); LYMPHOCYTES % (AUTO) 31.2 % (20.0-45.0); MEAN CORPUSCULAR VOLUME 91 FL (80-99); MONOCYTES % (AUTO) 6.9 % (1.0-10.0); NEUTROPHILS % (AUTO) 59.8 % (45.0-75.0); PLATELET COUNT 165 K/UL (150-450); RED BLOOD COUNT 2.82 M/UL (4.20-5.40); RED CELL DISTRIBUTION WIDTH 17.5 % (11.6-14.8)
[2020-06-03 06:00] LABS: ALANINE AMINOTRANSFERASE 11 U/L (12-78); ALBUMIN 2.8 G/DL (3.4-5.0); ALBUMIN/GLOBULIN RATIO 0.7 (1.0-2.7); ALKALINE PHOSPHATASE 48 U/L (46-116); ANION GAP -1 mmol/L (5-15); ASPARTATE AMINO TRANSFERASE 13 U/L (15-37); BILIRUBIN,TOTAL 1.7 MG/DL (0.2-1.0); BLOOD UREA NITROGEN 15 mg/dL (7-18); CALCIUM 8.2 MG/DL (8.5-10.1); CHLORIDE 102 MMOL/L (98-107); CREATININE 0.9 MG/DL (0.55-1.30); PHOSPHORUS 3.3 MG/DL (2.5-4.9); POTASSIUM 3.4 MMOL/L (3.5-5.1); SODIUM 144 MMOL/L (136-145)
[2020-06-03 06:05] LABS: CARBON DIOXIDE 43 MMOL/L (21-32)
[2020-06-03 06:06] LABS: BILIRUBIN,DIRECT 0.3 MG/DL (0.0-0.3)
--- NOTE | 2020-06-03 06:37 | Hematology/Onc Progress Note ---
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 ( combination of moderate aortic regurgitation and severe mitral regurgitation) --> diuresis as per cards --> lasix last time # Severe ascending aortic dilatation --> per Dr Keke campbell # Hypertension # Parkinson disease # Hyperlipidemia # Hypothyroidism # Dementia # Obesity # Schizophrenia --> as per [facility] --> restraints # Dvt ppx heparin sq Appreciate cardiology consultants care and alexei Rn Subjective Constitutional: Denies: no symptoms, chills, fever, malaise, weakness, other HEENT: Denies: no symptoms, eye pain, blurred vision, tearing, double vision, ear pain, ear discharge, nose pain, nose congestion, throat pain, throat swelling, mouth pain, mouth swelling, other Cardiovascular: Denies: no symptoms, chest pain, edema, irregular heart rate, lightheadedness, palpitations, syncope, other Gastrointestinal/Abdominal: Denies: no symptoms, abdomen distended, abdominal pain, black stools, tarry stools, blood in stool, constipated, diarrhea, diffic ulty swallowing, nausea, poor appetite, poor fluid intake, rectal bleeding, vomiting, other Genitourinary: Denies: no symptoms, burning, discharge, frequency, flank pain, hematuria, incontinence, pain, urgency, other Endocrine: Denies: no symptoms, excessive sweating, flushing, intolerance to cold, intolerance to heat, increased hunger, increased thirst, increased urine, unexplained weight gain, unexplained weight loss, other Hematologic/Lymphatic: Denies: no symptoms, anemia, easy bleeding, easy bruising, adenopathy, other Allergies: Coded Allergies: LITHIUM (Verified Allergy, Unknown, 02/07/19) Subjective 06/01 nonrebreather, 15L, some mild pain in back, chest, no night sweats 06/02 remains on nonrebreather, labs are noted, no bleeding or night sweats 06/03 labs reviewed, meds noted, nonrebreather, c02 was elevated, to inform pulm Objective Objective Current Medications Medications (Trade) Dose Ordered Sig/Angie Route PRN Reason Start Time Stop Time Status Last Admin Dose Admin Acetaminophen (Tylenol) 650 mg Q6H PRN NG Fever >100.5 05/14/20 21:00 06/13/20 20:59 05/14/20 21:10 Acetaminophen (Tylenol) 650 mg Q6H PRN NG Mild Pain (Pain Scale 1-3) 05/14/20 21:00 06/13/20 20:59 05/17/20 11:06 Chlorhexidine Gluconate (Ruba-Hex 2%) 1 applic DAILY@1999 TOPIC 05/31/20 20:00 08/29/20 19:59 06/02/20 21:11 Clonidine HCl (Catapres Tab) 0.1 mg Q4H PRN ORAL sbp>170 05/11/20 17:15 08/09/20 17:14 Docusate Sodium (Colace) 100 mg TWICE A DAY ORAL 05/25/20 18:00 06/24/20 17:59 06/02/20 09:24 Furosemide (Lasix) 40 mg EVERY 12 HOURS IV 05/30/20 09:30 06/29/20 09:29 06/02/20 21:10 Haloperidol Lactate (Haldol) 5 mg Q6H PRN IM Agitation 05/13/20 20:45 06/27/20 20:44 05/28/20 02:40 Heparin Sodium (Porcine) (Heparin 5000 units/ml) 5,000 units EVERY 12 HOURS SUBQ 05/25/20 21:00 07/09/20 20:59 06/02/20 21:15 Levothyroxine Sodium (Synthroid) 50 mcg DAILY@0630 ORAL 05/14/20 06:30 06/13/20 06:29 06/03/20 06:05 Pantoprazole (Protonix) 40 mg Q12HR ORAL 05/26/20 21:00 06/25/20 20:59 06/02/20 21:10 Polyethylene Glycol (Miralax) 17 gm BEDTIME ORAL 05/25/20 21:00 06/24/20 20:59 06/02/20 21:11 Potassium Chloride (K-Dur) 40 meq DAILY ORAL 06/03/20 09:00 08/27/20 10:29 Quetiapine Fumarate (SEROqueL) 50 mg Q12HR ORAL 05/24/20 21:00 07/08/20 20:59 06/02/20 21:10 Last 24 Hour Vital Signs Date Time Temp Pulse Resp B/P (MAP) Pulse Ox O2 Delivery O2 Flow Rate FiO2 06/03/20 04:00 Venturi Mask 8.0 06/03/20 04:00 14.0 06/03/20 04:00 96.4 86 20 147/60 (89) 98 06/03/20 04:00 61 06/03/20 00:00 96.4 86 20 137/56 (83) 98 06/03/20 00:00 Venturi Mask 8.0 06/03/20 00:00 50 06/02/20 22:00 14.0 06/02/20 20:00 Venturi Mask 8.0 06/02/20 20:00 97.7 88 20 113/60 (77) 98 06/02/20 20:00 56 06/02/20 16:00 14.0 06/02/20 16:00 Venturi Mask 8.0 06/02/20 16:00 60 06/02/20 16:00 97.7 61 20 117/49 (71) 98 06/02/20 12:00 Venturi Mask 8.0 06/02/20 12:00 97.2 68 18 121/56 (77) 97 06/02/20 12:00 58 06/02/20 12:00 14.0 06/02/20 08:00 Venturi Mask 8.0 06/02/20 08:00 14.0 06/02/20 08:00 78 06/02/20 08:00 97.1 84 18 113/44 (67) 98 06/02/20 04:00 97.7 69 22 111/48 (69) 97 06/02/20 04:00 Venturi Mask 8.0 06/02/20 04:00 14.0 06/02/20 03:42 73 06/02/20 00:00 98.1 61 23 109/51 (70) 94 06/02/20 00:00 54 06/02/20 00:00 15.0 06/02/20 00:00 Non-Rebreather 15.0 06/01/20 20:00 78 06/01/20 20:00 Non-Rebreather 15.0 06/01/20 20:00 15.0 06/01/20 20:00 98.5 75 22 103/45 (64) 98 06/01/20 16:00 97.7 79 20 100/64 (76) 98 06/01/20 16:00 15.0 06/01/20 16:00 Non-Rebreather 15.0 06/01/20 16:00 64 06/01/20 12:00 15.0 06/01/20 12:00 97.3 66 21 101/49 (66) 98 06/01/20 12:00 58 06/01/20 12:00 Non-Rebreather 15.0 06/01/20 08:00 Non-Rebreather 15.0 06/01/20 08:00 97.7 60 22 124/84 (97) 100 06/01/20 08:00 15.0 06/01/20 08:00 60 Intake and Output 06/02/20 06/03/20 19:00 07:00 Intake Total 120 ml Output Total 700 ml Balance -580 ml Intake Oral 120 ml Output Urine Total 700 ml Labs Test 06/01/20 03:35 06/01/20 20:00 06/02/20 04:00 06/03/20 04:30 Sodium Level 145 MMOL/L (136-145) 145 MMOL/L (136-145) 144 MMOL/L (136-145) Potassium Level 4.1 MMOL/L (3.5-5.1) 4.0 MMOL/L (3.5-5.1) 3.4 MMOL/L (3.5-5.1) Chloride Level 107 MMOL/L (98-107) 104 MMOL/L (98-107) 102 MMOL/L (98-107) Carbon Dioxide Level 35 MMOL/L (21-32) 40 MMOL/L (21-32) 43 MMOL/L (21-32) Anion Gap 3 mmol/L (5-15) -1 mmol/L (5-15) -1 mmol/L (5-15) Blood Urea Nitrogen 10 mg/dL (7-18) 14 mg/dL (7-18) 15 mg/dL (7-18) Creatinine 0.9 MG/DL (0.55-1.30) 1.0 MG/DL (0.55-1.30) 0.9 MG/DL (0.55-1.30) Estimat Glomerular Filtration Rate > 60 mL/min (>60) 53.3 mL/min (>60) > 60 mL/min (>60) Glucose Level 86 MG/DL (74-106) 66 MG/DL (74-106) 85 MG/DL (74-106) Calcium Level 7.8 MG/DL (8.5-10.1) 8.1 MG/DL (8.5-10.1) 8.2 MG/DL (8.5-10.1) Phosphorus Level 3.0 MG/DL (2.5-4.9) 2.0 MG/DL (2.5-4.9) 3.3 MG/DL (2.5-4.9) Magnesium Level 1.7 MG/DL (1.8-2.4) 1.8 MG/DL (1.8-2.4) Total Bilirubin 0.7 MG/DL (0.2-1.0) 1.2 MG/DL (0.2-1.0) 1.7 MG/DL (0.2-1.0) Aspartate Amino Transf (AST/SGOT) 17 U/L (15-37) 15 U/L (15-37) 13 U/L (15-37) Alanine Aminotransferase (ALT/SGPT) 11 U/L (12-78) 13 U/L (12-78) 11 U/L (12-78) Alkaline Phosphatase 51 U/L (46-116) 47 U/L (46-116) 48 U/L (46-116) Total Protein 6.6 G/DL (6.4-8.2) 6.7 G/DL (6.4-8.2) 6.8 G/DL (6.4-8.2) Albumin 2.7 G/DL (3.4-5.0) 2.8 G/DL (3.4-5.0) 2.8 G/DL (3.4-5.0) Globulin 3.9 g/dL 3.9 g/dL 4.0 g/dL Albumin/Globulin Ratio 0.7 (1.0-2.7) 0.7 (1.0-2.7) 0.7 (1.0-2.7) White Blood Count 4.5 K/UL (4.8-10.8) 4.9 K/UL (4.8-10.8) 4.0 K/UL (4.8-10.8) Red Blood Count 2.59 M/UL (4.20-5.40) 2.64 M/UL (4.20-5.40) 2.82 M/UL (4.20-5.40) Hemoglobin 8.2 G/DL (12.0-16.0) 8.4 G/DL (12.0-16.0) 8.9 G/DL (12.0-16.0) Hematocrit 23.9 % (37.0-47.0) 25.3 % (37.0-47.0) 25.7 % (37.0-47.0) Mean Corpuscular Volume 92 FL (80-99) 96 FL (80-99) 91 FL (80-99) Mean Corpuscular Hemoglobin 31.8 PG (27.0-31.0) 31.8 PG (27.0-31.0) 31.7 PG (27.0-31.0) Mean Corpuscular Hemoglobin Concent 34.5 G/DL (32.0-36.0) 33.2 G/DL (32.0-36.0) 34.9 G/DL (32.0-36.0) Red Cell Distribution Width 17.1 % (11.6-14.8) 16.1 % (11.6-14.8) 17.5 % (11.6-14.8) Platelet Count 151 K/UL (150-450) 155 K/UL (150-450) 165 K/UL (150-450) Mean Platelet Volume 6.8 FL (6.5-10.1) 7.6 FL (6.5-10.1) 6.9 FL (6.5-10.1) Neutrophils (%) (Auto) 62.2 % (45.0-75.0) 59.1 % (45.0-75.0) 59.8 % (45.0-75.0) Lymphocytes (%) (Auto) 29.9 % (20.0-45.0) 31.8 % (20.0-45.0) 31.2 % (20.0-45.0) Monocytes (%) (Auto) 5.7 % (1.0-10.0) 7.3 % (1.0-10.0) 6.9 % (1.0-10.0) Eosinophils (%) (Auto) 1.4 % (0.0-3.0) 1.2 % (0.0-3.0) 1.1 % (0.0-3.0) Basophils (%) (Auto) 0.8 % (0.0-2.0) 0.6 % (0.0-2.0) 1.1 % (0.0-2.0) Direct Bilirubin 0.2 MG/DL (0.0-0.3) 0.3 MG/DL (0.0-0.3) Height (Feet): 5 Height (Inches): 3.00 Weight (Pounds): 183 Objective Physical Exam: Vitals: reviewed General: NAD HEENT: nc, at Neck: supple Chest: decreased breath sounds bilaterally, crackles+++ 15L NRM Cardiovascular: RRR, no s3, s4 Abdomen: soft, nontender, nd Extremities: 1-2 + edema Neuro: nonverbal Frank Escobar MD Jun 03, 2020 06:37
[2020-06-03 08:00] VITALS: BP 117/47
[2020-06-03] MEDS: Docusate 100mg cap ORAL SCH ×2 (09:00→17:55)
[2020-06-03] MEDS: Heparin 5000 units/ml inj SUBQ SCH ×2 (09:00→21:04)
--- NOTE | 2020-06-03 09:34 | Infectious Diseases Prog Note ---
Assessment/Plan Assessment/Plan IMPRESSION: COVID-19 disease, Acute respiratory failure, COPD, Diastolic CHF, Mitral valve regurgitation, Anemia, Parkinson disease, schizoaffective disorder, Dementia, Obstructive sleep apnea, Hypothyroidism. 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 SSS with pause RECOMMENDATION: Finished dexamethasone & Remdesivir course Observe off of antibiotic Will f/u COVID19 test Case was D/W RN Subjective ROS Limited/Unobtainable: Yes Constitutional: Denies: fever Neurologic: Reports: confusion, other - on restraint Allergies: Coded Allergies: LITHIUM (Verified Allergy, Unknown, 02/07/19) Objective Last 24 Hour Vital Signs Date Time Temp Pulse Resp B/P (MAP) Pulse Ox O2 Delivery O2 Flow Rate FiO2 06/03/20 04:00 Venturi Mask 8.0 06/03/20 04:00 14.0 06/03/20 04:00 96.4 86 20 147/60 (89) 98 06/03/20 04:00 61 06/03/20 00:00 96.4 86 20 137/56 (83) 98 06/03/20 00:00 Venturi Mask 8.0 06/03/20 00:00 50 06/02/20 22:00 14.0 06/02/20 20:00 Venturi Mask 8.0 06/02/20 20:00 97.7 88 20 113/60 (77) 98 06/02/20 20:00 56 06/02/20 16:00 14.0 06/02/20 16:00 Venturi Mask 8.0 06/02/20 16:00 60 06/02/20 16:00 97.7 61 20 117/49 (71) 98 06/02/20 12:00 Venturi Mask 8.0 06/02/20 12:00 97.2 68 18 121/56 (77) 97 06/02/20 12:00 58 06/02/20 12:00 14.0 Height (Feet): 5 Height (Inches): 3.00 Weight (Pounds): 183 HEENT: mucous membranes moist Respiratory/Chest: no respiratory distress Cardiovascular: normal rate Abdomen: soft, non tender Extremities: no edema Neurologic/Psychiatric: alert, responsive Laboratory Tests Test 06/03/20 04:30 White Blood Count 4.0 K/UL (4.8-10.8) L Red Blood Count 2.82 M/UL (4.20-5.40) L Hemoglobin 8.9 G/DL (12.0-16.0) L Hematocrit 25.7 % (37.0-47.0) L Mean Corpuscular Volume 91 FL (80-99) Mean Corpuscular Hemoglobin 31.7 PG (27.0-31.0) H Mean Corpuscular Hemoglobin Concent 34.9 G/DL (32.0-36.0) Red Cell Distribution Width 17.5 % (11.6-14.8) H Platelet Count 165 K/UL (150-450) Mean Platelet Volume 6.9 FL (6.5-10.1) Neutrophils (%) (Auto) 59.8 % (45.0-75.0) Lymphocytes (%) (Auto) 31.2 % (20.0-45.0) Monocytes (%) (Auto) 6.9 % (1.0-10.0) Eosinophils (%) (Auto) 1.1 % (0.0-3.0) Basophils (%) (Auto) 1.1 % (0.0-2.0) Sodium Level 144 MMOL/L (136-145) Potassium Level 3.4 MMOL/L (3.5-5.1) L Chloride Level 102 MMOL/L (98-107) Carbon Dioxide Level 43 MMOL/L (21-32) *H Anion Gap -1 mmol/L (5-15) L Blood Urea Nitrogen 15 mg/dL (7-18) Creatinine 0.9 MG/DL (0.55-1.30) Estimat Glomerular Filtration Rate > 60 mL/min (>60) Glucose Level 85 MG/DL (74-106) Calcium Level 8.2 MG/DL (8.5-10.1) L Phosphorus Level 3.3 MG/DL (2.5-4.9) Magnesium Level 1.8 MG/DL (1.8-2.4) Total Bilirubin 1.7 MG/DL (0.2-1.0) H Direct Bilirubin 0.3 MG/DL (0.0-0.3) Aspartate Amino Transf (AST/SGOT) 13 U/L (15-37) L Alanine Aminotransferase (ALT/SGPT) 11 U/L (12-78) L Alkaline Phosphatase 48 U/L (46-116) Total Protein 6.8 G/DL (6.4-8.2) Albumin 2.8 G/DL (3.4-5.0) L Globulin 4.0 g/dL Albumin/Globulin Ratio 0.7 (1.0-2.7) L Current Medications Medications (Trade) Dose Ordered Sig/Angie Route PRN Reason Start Time Stop Time Status Last Admin Dose Admin Acetaminophen (Tylenol) 650 mg Q6H PRN NG Fever >100.5 05/14/20 21:00 06/13/20 20:59 05/14/20 21:10 Acetaminophen (Tylenol) 650 mg Q6H PRN NG Mild Pain (Pain Scale 1-3) 05/14/20 21:00 06/13/20 20:59 05/17/20 11:06 Chlorhexidine Gluconate (Ruba-Hex 2%) 1 applic DAILY@1999 TOPIC 05/31/20 20:00 08/29/20 19:59 06/02/20 21:11 Clonidine HCl (Catapres Tab) 0.1 mg Q4H PRN ORAL sbp>170 05/11/20 17:15 08/09/20 17:14 Docusate Sodium (Colace) 100 mg TWICE A DAY ORAL 05/25/20 18:00 06/24/20 17:59 06/02/20 09:24 Furosemide (Lasix) 40 mg EVERY 12 HOURS IV 05/30/20 09:30 06/29/20 09:29 06/02/20 21:10 Haloperidol Lactate (Haldol) 5 mg Q6H PRN IM Agitation 05/13/20 20:45 06/27/20 20:44 05/28/20 02:40 Heparin Sodium (Porcine) (Heparin 5000 units/ml) 5,000 units EVERY 12 HOURS SUBQ 05/25/20 21:00 07/09/20 20:59 06/02/20 21:15 Levothyroxine Sodium (Synthroid) 50 mcg DAILY@0630 ORAL 05/14/20 06:30 06/13/20 06:29 06/03/20 06:05 Pantoprazole (Protonix) 40 mg Q12HR ORAL 05/26/20 21:00 06/25/20 20:59 06/02/20 21:10 Polyethylene Glycol (Miralax) 17 gm BEDTIME ORAL 05/25/20 21:00 06/24/20 20:59 06/02/20 21:11 Potassium Chloride (K-Dur) 40 meq DAILY ORAL 06/03/20 09:00 08/27/20 10:29 Quetiapine Fumarate (SEROqueL) 50 mg Q12HR ORAL 05/24/20 21:00 07/08/20 20:59 06/02/20 21:10 Lei Chan MD Jun 03, 2020 09:34
--- NOTE | 2020-06-03 11:17 | Cardiac Electrophysiology PN ---
Assessment/Plan Assessment/Plan 1. Covid PNA and respiratory failure. S/P Remdesevir and Dexamethasone Self extubated on 14 liter venturi Mask Off Abx per ID. On Lasix [address] Myers 2. SSS with 8 pauses of more than 3 seconds including 9 and 10 second pauses off any QUEZADA or AVN blockers. Will need pacer consent from conservator/court and ID clearance 3. Hypotension. Off Dopamine.Tolerating Lasix. EF 55% 4. Schizophrenia and psychosis. 5. S/P MRSA & Klebsiella pneumonia treated DW RN Subjective Subjective Self extubated on 05/22/20 on 14 liter VM in Covid isolation S/P Left arm PICC line placement as has no iv access. Got iv K and MG Had multiple pauses of more than 3 seconds including a 4s and 7s and a 10 second pause at 1 AM on 05/31 Had pauses of 7, 8 and 6 seconds again 06/01/20 Conservator deferred authorization for PPM to court. Positive blood Cx and ID clearance also pending pre pacer implant Objective Last 24 Hour Vital Signs Date Time Temp Pulse Resp B/P (MAP) Pulse Ox O2 Delivery O2 Flow Rate FiO2 06/03/20 08:00 14.0 06/03/20 08:00 63 06/03/20 08:00 96.4 71 20 117/47 (70) 94 06/03/20 08:00 Venturi Mask 8.0 06/03/20 04:00 Venturi Mask 8.0 06/03/20 04:00 14.0 06/03/20 04:00 96.4 86 20 147/60 (89) 98 06/03/20 04:00 61 06/03/20 00:00 96.4 86 20 137/56 (83) 98 06/03/20 00:00 Venturi Mask 8.0 06/03/20 00:00 50 06/02/20 22:00 14.0 06/02/20 20:00 Venturi Mask 8.0 06/02/20 20:00 97.7 88 20 113/60 (77) 98 06/02/20 20:00 56 06/02/20 16:00 14.0 06/02/20 16:00 Venturi Mask 8.0 06/02/20 16:00 60 06/02/20 16:00 97.7 61 20 117/49 (71) 98 06/02/20 12:00 Venturi Mask 8.0 06/02/20 12:00 97.2 68 18 121/56 (77) 97 06/02/20 12:00 58 06/02/20 12:00 14.0 Intake and Output 06/02/20 06/03/20 19:00 07:00 Intake Total 120 ml 120 ml Output Total 700 ml 850 ml Balance -580 ml -730 ml Intake Oral 120 ml 120 ml Output Urine Total 700 ml 850 ml Laboratory Tests Test 06/03/20 04:30 06/03/20 09:38 White Blood Count 4.0 K/UL (4.8-10.8) L Red Blood Count 2.82 M/UL (4.20-5.40) L Hemoglobin 8.9 G/DL (12.0-16.0) L Hematocrit 25.7 % (37.0-47.0) L Mean Corpuscular Volume 91 FL (80-99) Mean Corpuscular Hemoglobin 31.7 PG (27.0-31.0) H Mean Corpuscular Hemoglobin Concent 34.9 G/DL (32.0-36.0) Red Cell Distribution Width 17.5 % (11.6-14.8) H Platelet Count 165 K/UL (150-450) Mean Platelet Volume 6.9 FL (6.5-10.1) Neutrophils (%) (Auto) 59.8 % (45.0-75.0) Lymphocytes (%) (Auto) 31.2 % (20.0-45.0) Monocytes (%) (Auto) 6.9 % (1.0-10.0) Eosinophils (%) (Auto) 1.1 % (0.0-3.0) Basophils (%) (Auto) 1.1 % (0.0-2.0) Sodium Level 144 MMOL/L (136-145) Potassium Level 3.4 MMOL/L (3.5-5.1) L Chloride Level 102 MMOL/L (98-107) Carbon Dioxide Level 43 MMOL/L (21-32) *H Anion Gap -1 mmol/L (5-15) L Blood Urea Nitrogen 15 mg/dL (7-18) Creatinine 0.9 MG/DL (0.55-1.30) Estimat Glomerular Filtration Rate > 60 mL/min (>60) Glucose Level 85 MG/DL (74-106) Calcium Level 8.2 MG/DL (8.5-10.1) L Phosphorus Level 3.3 MG/DL (2.5-4.9) Magnesium Level 1.8 MG/DL (1.8-2.4) Total Bilirubin 1.7 MG/DL (0.2-1.0) H Direct Bilirubin 0.3 MG/DL (0.0-0.3) Aspartate Amino Transf (AST/SGOT) 13 U/L (15-37) L Alanine Aminotransferase (ALT/SGPT) 11 U/L (12-78) L Alkaline Phosphatase 48 U/L (46-116) Total Protein 6.8 G/DL (6.4-8.2) Albumin 2.8 G/DL (3.4-5.0) L Globulin 4.0 g/dL Albumin/Globulin Ratio 0.7 (1.0-2.7) L Arterial Blood pH 7.518 (7.350-7.450) Arterial Blood Partial Pressure CO2 53.7 mmHg (35.0-45.0) H Arterial Blood Partial Pressure O2 37.2 mmHg (75.0-100.0) Arterial Blood HCO3 42.7 mmol/L (22.0-26.0) *H Arterial Blood Oxygen Saturation 74.2 % (95-100) *L Arterial Blood Base Excess 17.6 (-2-2) *H Raphael Test Positive Objective HEAD AND NECK: Positive JVD. LUNGS: Decreased breath sounds. CARDIOVASCULAR: Regular S1 and S2 with no gallop. ABDOMEN: Obese. EXTREMITIES: Bilateral 2+ pitting edema. Cameron Davies MD Jun 03, 2020 11:17
[2020-06-03 12:12] VITALS: BP 101/45
--- NOTE | 2020-06-03 12:28 | Surgery Progress Note ---
Surgery Progress Note Subjective Additional Comments ill appearing no n/v lbs noted exam stable Objective Last 24 Hour Vital Signs Date Time Temp Pulse Resp B/P (MAP) Pulse Ox O2 Delivery O2 Flow Rate FiO2 06/03/20 12:12 96.8 69 20 101/45 (63) 95 06/03/20 12:11 14.0 06/03/20 11:46 Venturi Mask 8.0 06/03/20 08:00 14.0 06/03/20 08:00 63 06/03/20 08:00 96.4 71 20 117/47 (70) 94 06/03/20 08:00 Venturi Mask 8.0 06/03/20 04:00 Venturi Mask 8.0 06/03/20 04:00 14.0 06/03/20 04:00 96.4 86 20 147/60 (89) 98 06/03/20 04:00 61 06/03/20 00:00 96.4 86 20 137/56 (83) 98 06/03/20 00:00 Venturi Mask 8.0 06/03/20 00:00 50 06/02/20 22:00 14.0 06/02/20 20:00 Venturi Mask 8.0 06/02/20 20:00 97.7 88 20 113/60 (77) 98 06/02/20 20:00 56 06/02/20 16:00 14.0 06/02/20 16:00 Venturi Mask 8.0 06/02/20 16:00 60 06/02/20 16:00 97.7 61 20 117/49 (71) 98 I&O Intake and Output 06/02/20 06/03/20 19:00 07:00 Intake Total 120 ml 120 ml Output Total 700 ml 850 ml Balance -580 ml -730 ml Intake Oral 120 ml 120 ml Output Urine Total 700 ml 850 ml Dressing: saturated Cardiovascular: RSR Respiratory: decreased breath sounds Abdomen: soft, non-tender, present bowel sounds, non-distended Extremities: no tenderness, no cyanosis Laboratory Tests Test 06/03/20 04:30 06/03/20 09:38 White Blood Count 4.0 K/UL (4.8-10.8) L Red Blood Count 2.82 M/UL (4.20-5.40) L Hemoglobin 8.9 G/DL (12.0-16.0) L Hematocrit 25.7 % (37.0-47.0) L Mean Corpuscular Volume 91 FL (80-99) Mean Corpuscular Hemoglobin 31.7 PG (27.0-31.0) H Mean Corpuscular Hemoglobin Concent 34.9 G/DL (32.0-36.0) Red Cell Distribution Width 17.5 % (11.6-14.8) H Platelet Count 165 K/UL (150-450) Mean Platelet Volume 6.9 FL (6.5-10.1) Neutrophils (%) (Auto) 59.8 % (45.0-75.0) Lymphocytes (%) (Auto) 31.2 % (20.0-45.0) Monocytes (%) (Auto) 6.9 % (1.0-10.0) Eosinophils (%) (Auto) 1.1 % (0.0-3.0) Basophils (%) (Auto) 1.1 % (0.0-2.0) Sodium Level 144 MMOL/L (136-145) Potassium Level 3.4 MMOL/L (3.5-5.1) L Chloride Level 102 MMOL/L (98-107) Carbon Dioxide Level 43 MMOL/L (21-32) *H Anion Gap -1 mmol/L (5-15) L Blood Urea Nitrogen 15 mg/dL (7-18) Creatinine 0.9 MG/DL (0.55-1.30) Estimat Glomerular Filtration Rate > 60 mL/min (>60) Glucose Level 85 MG/DL (74-106) Calcium Level 8.2 MG/DL (8.5-10.1) L Phosphorus Level 3.3 MG/DL (2.5-4.9) Magnesium Level 1.8 MG/DL (1.8-2.4) Total Bilirubin 1.7 MG/DL (0.2-1.0) H Direct Bilirubin 0.3 MG/DL (0.0-0.3) Aspartate Amino Transf (AST/SGOT) 13 U/L (15-37) L Alanine Aminotransferase (ALT/SGPT) 11 U/L (12-78) L Alkaline Phosphatase 48 U/L (46-116) Total Protein 6.8 G/DL (6.4-8.2) Albumin 2.8 G/DL (3.4-5.0) L Globulin 4.0 g/dL Albumin/Globulin Ratio 0.7 (1.0-2.7) L Arterial Blood pH 7.518 (7.350-7.450) Arterial Blood Partial Pressure CO2 53.7 mmHg (35.0-45.0) H Arterial Blood Partial Pressure O2 37.2 mmHg (75.0-100.0) Arterial Blood HCO3 42.7 mmol/L (22.0-26.0) *H Arterial Blood Oxygen Saturation 74.2 % (95-100) *L Arterial Blood Base Excess 17.6 (-2-2) *H Raphael Test Positive Plan Problems: (1) Anemia (2) Hypercapnic respiratory failure Assessment & Plan: respiratory insufficiency requiring prolonged ventilatory support unable to wean vent safely after multiple attempts discussed with pcp. discussed with pulm discussed with patient guardian. patient unable to consent. no nok or poa. given critical care and condition not recommended to await court decision which during pandemic can take long time. medically necessary to proceed with trach in patients best interest. 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
[2020-06-03] MEDS ORDERED: NS 275ml ONE ×2 (14:13→14:31)
[2020-06-03] MEDS ORDERED: Tubing IV Secondary IV ONE (14:13)
[2020-06-03] MEDS ORDERED: D5W 275ml ONE (14:13)
--- NOTE | 2020-06-03 14:57 | Nephrology Progress Note ---
Assessment/Plan Problem List: (1) Renal failure (ARF), acute on chronic (2) Hypercapnic respiratory failure (3) CHF exacerbation (4) Anemia Assessment Azotemia/renal failure Acute respiratory failure most likely secondary to CHF, on mechanical ventilation History of COPD Hypertension Hyperlipemia Schizophrenia/psychosis Plan June 03: Poor respiratory status. ABG noted. Patient hypoxic. Renal parameters somewhat stable. Continue per pulmonary. June 02: Labs reviewed. Low phosphorus replaced. Patient has periodic severe bradycardia. Continue per cardiology. June 01: Labs reviewed. Low magnesium replaced. Renal parameters stable. Hemoglobin level reasonable. Continue per consultants. May 31: Labs reviewed. Abnormal electrolytes at rest. Hemoglobin higher. Discussed with DARREL Cooper. Continue per consultants. May 30: Lab reviewed. Potassium and phosphorus replaced. Hemoglobin higher after transfusion. Continue per consultants. May 29: Lab reviewed. Patient anemic. Electrolyte abnormalities reviewed and addressed. Continue per consultants. Remains stable from renal standpoint of view. May 28: Patient was not transfused despite of my order since yesterday. Will defer transfusion to PMD/journeyman meat cutter. Patient remains stable from renal standpoint of view. Continue per consultants. Discussed with Marlene nursing charge in [place]. May 27: Remains on Venturi mask. Labs reviewed. Abnormal electrolytes addressed. Hemoglobin low. Will transfuse 1 unit of packed RBCs today May 26: On Venturi mask. Labs reviewed. Abnormal electrolytes addressed. Continue per consultants and pulmonary support. May 25: On Venturi mask. Lethargic. No labs drawn today. Will monitor renal parameters. Per orders. May 24: Remains extubated. Will start on diet with high alert for possible aspiration. Continue to monitor renal parameters. May 23: Continues to be extubated. On nonrebreathing mask. Labs reviewed. Renal parameters stable. Discussed with RN. Continue per current management. May 22: Now extubated on nonrebreathing mask. Labs reviewed. Renal parameters stable. Abnormal electrolytes addressed. Discussed with RN. May 21: Remains intubated. Labs reviewed. Abnormal electrolytes addressed. Discussed with RN. May 20: Remains intubated. Abnormal electrolyte noted on today's lab results and addressed. Continue per consultants. May 19: Patient remains intubated. Labs reviewed. Abnormal electrolytes addressed. Continue per current management. May 18: Patient seen in ICU. Remains intubated. Weaning is being tried. Discussed with RN. Labs reviewed. Abnormal electrolyte addressed. Continue per consultants. May 17: Labs reviewed. Remains intubated. Stable from renal standpoint of view. Continue weaning. Discussed with RN. May 16: Labs reviewed. Remains intubated. Remains full code. Stable from renal standpoint of view. Abnormal electrolytes addressed. May 15: Labs reviewed. Renal parameters stable. Discussed with RN. Patient remains intubated on ventilator and full code. Continue per consultants. May 14: Labs reviewed. Discussed with RN. Abnormal electrolyte addressed. Continue per current management. Patient seen in ICU. Discussed with RN. Today's labs pending. Patient remains on 6 mics of dopamine. Pulmonary support Monitor intake and output Monitor electrolytes Continue per consultants Per orders Subjective ROS Limited/Unobtainable: Yes Objective Objective Last 24 Hour Vital Signs Date Time Temp Pulse Resp B/P (MAP) Pulse Ox O2 Delivery O2 Flow Rate FiO2 06/03/20 12:12 96.8 69 20 101/45 (63) 95 06/03/20 12:11 14.0 06/03/20 12:00 61 06/03/20 11:46 Venturi Mask 8.0 06/03/20 08:00 14.0 06/03/20 08:00 63 06/03/20 08:00 96.4 71 20 117/47 (70) 94 06/03/20 08:00 Venturi Mask 8.0 06/03/20 04:00 Venturi Mask 8.0 06/03/20 04:00 14.0 06/03/20 04:00 96.4 86 20 147/60 (89) 98 06/03/20 04:00 61 06/03/20 00:00 96.4 86 20 137/56 (83) 98 06/03/20 00:00 Venturi Mask 8.0 06/03/20 00:00 50 06/02/20 22:00 14.0 06/02/20 20:00 Venturi Mask 8.0 06/02/20 20:00 97.7 88 20 113/60 (77) 98 06/02/20 20:00 56 06/02/20 16:00 14.0 06/02/20 16:00 Venturi Mask 8.0 06/02/20 16:00 60 06/02/20 16:00 97.7 61 20 117/49 (71) 98 Intake and Output 12/21/20 12/22/20 19:00 07:00 Intake Total 120 ml 120 ml Output Total 700 ml 850 ml Balance -580 ml -730 ml Intake Oral 120 ml 120 ml Output Urine Total 700 ml 850 ml Laboratory Tests 06/03/20 04:30: White Blood Count 4.0L, Red Blood Count 2.82L, Hemoglobin 8.9L, Hematocrit 25.7L , Mean Corpuscular Volume 91, Mean Corpuscular Hemoglobin 31.7H, Mean Corpuscular Hemoglobin Concent 34.9, Red Cell Distribution Width 17.5H, Platelet Count 165, Mean Platelet Volume 6.9, Neutrophils (%) (Auto) 59.8, Lymphocytes (%) (Auto) 31.2, Monocytes (%) (Auto) 6.9, Eosinophils (%) (Auto) 1.1, Basophils (%) (Auto) 1.1, Sodium Level 144, Potassium Level 3.4L, Chloride Level 102, Carbon Dioxide Level 43*H, Anion Gap -1L, Blood Urea Nitrogen 15, Creatinine 0.9, Estimat Glomerular Filtration Rate > 60, Glucose Level 85, Calcium Level 8.2L, Phosphorus Level 3.3, Magnesium Level 1.8, Total Bilirubin 1.7H, Direct Bilirubin 0.3, Aspartate Amino Transf (AST/SGOT) 13L, Alanine Aminotransferase (ALT/SGPT) 11L, Alkaline Phosphatase 48, Total Protein 6.8, Albumin 2.8L, Globulin 4.0, Albumin/Globulin Ratio 0.7L 06/03/20 09:38: Arterial Blood pH 7.518H, Arterial Blood Partial Pressure CO2 53.7H, Arterial Blood Partial Pressure O2 37.2*L, Arterial Blood HCO3 42.7*H, Arterial Blood Oxygen Saturation 74.2*L, Arterial Blood Base Excess 17.6*H, Raphael Test Positive Height (Feet): 5 Height (Inches): 3.00 Weight (Pounds): 183 General Appearance: lethargic, confused Cardiovascular: arrhythmia, other Respiratory/Chest: decreased breath sounds Abdomen: distended Bryan Ochoa MD Jun 03, 2020 14:57
--- NOTE | 2020-06-03 15:16 | Pulmonology Progress Note ---
Subjective ROS Limited/Unobtainable: Yes Interval Events: Refusing all PO medications Constitutional: Denies: fever HEENT: Repors: no symptoms Respiratory: Reports: no symptoms Cardiovascular: Reports: no symptoms Gastrointestinal/Abdominal: Reports: no symptoms Genitourinary: Reports: no symptoms Allergies: Coded Allergies: LITHIUM (Verified Allergy, Unknown, 02/07/19) Objective Last 24 Hour Vital Signs Date Time Temp Pulse Resp B/P (MAP) Pulse Ox O2 Delivery O2 Flow Rate FiO2 06/03/20 12:12 96.8 69 20 101/45 (63) 95 06/03/20 12:11 14.0 06/03/20 12:00 61 06/03/20 11:46 Venturi Mask 8.0 06/03/20 08:00 14.0 06/03/20 08:00 63 06/03/20 08:00 96.4 71 20 117/47 (70) 94 06/03/20 08:00 Venturi Mask 8.0 06/03/20 04:00 Venturi Mask 8.0 06/03/20 04:00 14.0 06/03/20 04:00 96.4 86 20 147/60 (89) 98 06/03/20 04:00 61 06/03/20 00:00 96.4 86 20 137/56 (83) 98 06/03/20 00:00 Venturi Mask 8.0 06/03/20 00:00 50 06/02/20 22:00 14.0 06/02/20 20:00 Venturi Mask 8.0 06/02/20 20:00 97.7 88 20 113/60 (77) 98 06/02/20 20:00 56 06/02/20 16:00 14.0 06/02/20 16:00 Venturi Mask 8.0 06/02/20 16:00 60 06/02/20 16:00 97.7 61 20 117/49 (71) 98 Intake and Output 06/02/20 06/03/20 19:00 07:00 Intake Total 120 ml 120 ml Output Total 700 ml 850 ml Balance -580 ml -730 ml Intake Oral 120 ml 120 ml Output Urine Total 700 ml 850 ml General Appearance: no acute distress HEENT: normocephalic Respiratory: no respiratory distress, decreased breath sounds Cardiovascular: normal rate Abdomen: soft, non tender, other - obese, NG tube Extremities: other - b/l 2+ pitting edema Neurologic: disoriented Laboratory Tests 06/03/20 04:30: White Blood Count 4.0L, Red Blood Count 2.82L, Hemoglobin 8.9L, Hematocrit 25.7L , Mean Corpuscular Volume 91, Mean Corpuscular Hemoglobin 31.7H, Mean Corpuscular Hemoglobin Concent 34.9, Red Cell Distribution Width 17.5H, Platelet Count 165, Mean Platelet Volume 6.9, Neutrophils (%) (Auto) 59.8, Lymphocytes (%) (Auto) 31.2, Monocytes (%) (Auto) 6.9, Eosinophils (%) (Auto) 1.1, Basophils (%) (Auto) 1.1, Sodium Level 144, Potassium Level 3.4L, Chloride Level 102, Carbon Dioxide Level 43*H, Anion Gap -1L, Blood Urea Nitrogen 15, Creatinine 0.9, Estimat Glomerular Filtration Rate > 60, Glucose Level 85, Calcium Level 8.2L, Phosphorus Level 3.3, Magnesium Level 1.8, Total Bilirubin 1.7H, Direct Bi lirubin 0.3, Aspartate Amino Transf (AST/SGOT) 13L, Alanine Aminotransferase (ALT/SGPT) 11L, Alkaline Phosphatase 48, Total Protein 6.8, Albumin 2.8L, Globulin 4.0, Albumin/Globulin Ratio 0.7L 06/03/20 09:38: Arterial Blood pH 7.518H, Arterial Blood Partial Pressure CO2 53.7H, Arterial Blood Partial Pressure O2 37.2*L, Arterial Blood HCO3 42.7*H, Arterial Blood Oxygen Saturation 74.2*L, Arterial Blood Base Excess 17.6*H, Raphael Test Positive Current Medications Medications (Trade) Dose Ordered Sig/Angie Route PRN Reason Start Time Stop Time Status Last Admin Dose Admin Acetaminophen (Tylenol) 650 mg Q6H PRN NG Fever >100.5 05/14/20 21:00 06/13/20 20:59 05/14/20 21:10 Acetaminophen (Tylenol) 650 mg Q6H PRN NG Mild Pain (Pain Scale 1-3) 05/14/20 21:00 06/13/20 20:59 05/17/20 11:06 Chlorhexidine Gluconate (Ruba-Hex 2%) 1 applic DAILY@1999 TOPIC 05/31/20 20:00 08/29/20 19:59 06/02/20 21:11 Clonidine HCl (Catapres Tab) 0.1 mg Q4H PRN ORAL sbp>170 05/11/20 17:15 08/09/20 17:14 Docusate Sodium (Colace) 100 mg TWICE A DAY ORAL 05/25/20 18:00 06/24/20 17:59 06/02/20 09:24 Furosemide (Lasix) 40 mg EVERY 12 HOURS IV 05/30/20 09:30 06/29/20 09:29 06/03/20 09:00 Haloperidol Lactate (Haldol) 5 mg Q6H PRN IM Agitation 05/13/20 20:45 06/27/20 20:44 05/28/20 02:40 Heparin Sodium (Porcine) (Heparin 5000 units/ml) 5,000 units EVERY 12 HOURS SUBQ 05/25/20 21:00 07/09/20 20:59 06/02/20 21:15 Levothyroxine Sodium (Synthroid) 50 mcg DAILY@0630 ORAL 05/14/20 06:30 06/13/20 06:29 06/03/20 06:05 Pantoprazole (Protonix) 40 mg Q12HR ORAL 05/26/20 21:00 06/25/20 20:59 06/02/20 21:10 Polyethylene Glycol (Miralax) 17 gm BEDTIME ORAL 05/25/20 21:00 06/24/20 20:59 06/02/20 21:11 Potassium Chloride (K-Dur) 40 meq DAILY ORAL 06/03/20 09:00 08/27/20 10:29 Quetiapine Fumarate (SEROqueL) 50 mg Q12HR ORAL 05/24/20 21:00 07/08/20 20:59 06/02/20 21:10 Assessment/Plan Assessment/Plan 1. Bilateral COVID-19 multilobar pneumonia. - s/p ETT - Afebrile - s/p Azithromycin, Ceftriaxone, dexamethasone - s/p remdesivir - CXR 05/31 Patchy bilateral airspace consolidations, consistent with multifocal infiltrate, similar in appearance to previous study from 05/30; Stable, small bilateral pleural effusions. 2. Hx of COPD. 3. Schizophrenia/psychosis - On haloperidol per Dr. Hernandez; refusing all PO medications 4. Hypoxia. -Now on 8L/min via mask - Latest CXR (05/31) unchanged - on Lasix 40 mg IV BID - recommend continues diuresis with ongoing BUN/Cr monitoring 5. Anemia DVT ppx Sincere Myers MD Jun 03, 2020 15:16
[2020-06-03 16:00] VITALS: BP 121/47
[2020-06-03 20:00] VITALS: BP 128/48
[2020-06-03] MEDS: Dyna-Hex 2% Top Sol 2oz TOPIC SCH (21:01)
[2020-06-03] MEDS: Miralax 17gm pkt ORAL SCH (21:02)
--- NOTE | 2020-06-03 21:42 | General Progress Note ---
Subjective ROS Limited/Unobtainable: Yes Allergies: Coded Allergies: LITHIUM (Verified Allergy, Unknown, 02/07/19) Objective Last 24 Hour Vital Signs Date Time Temp Pulse Resp B/P (MAP) Pulse Ox O2 Delivery O2 Flow Rate FiO2 06/03/20 20:10 95 Venturi Mask 14.0 55 06/03/20 20:00 14.0 06/03/20 20:00 97.6 83 21 128/48 (74) 6 06/03/20 20:00 Venturi Mask 8.0 06/03/20 19:50 55 06/03/20 16:00 41 06/03/20 16:00 Venturi Mask 8.0 06/03/20 16:00 96.8 64 20 121/47 (71) 95 06/03/20 16:00 14.0 06/03/20 12:12 96.8 69 20 101/45 (63) 95 06/03/20 12:11 14.0 06/03/20 12:00 61 06/03/20 11:46 Venturi Mask 8.0 06/03/20 08:00 14.0 06/03/20 08:00 63 06/03/20 08:00 96.4 71 20 117/47 (70) 94 06/03/20 08:00 Venturi Mask 8.0 06/03/20 04:00 Venturi Mask 8.0 06/03/20 04:00 14.0 06/03/20 04:00 96.4 86 20 147/60 (89) 98 06/03/20 04:00 61 06/03/20 00:00 96.4 86 20 137/56 (83) 98 06/03/20 00:00 Venturi Mask 8.0 06/03/20 00:00 50 06/02/20 22:00 14.0 Intake and Output 06/02/20 06/03/20 19:00 07:00 Intake Total 120 ml 120 ml Output Total 700 ml 850 ml Balance -580 ml -730 ml Intake Oral 120 ml 120 ml Output Urine Total 700 ml 850 ml Laboratory Tests 06/03/20 04:30: White Blood Count 4.0L, Red Blood Count 2.82L, Hemoglobin 8.9L, Hematocrit 25.7L , Mean Corpuscular Volume 91, Mean Corpuscular Hemoglobin 31.7H, Mean Corpuscular Hemoglobin Concent 34.9, Red Cell Distribution Width 17.5H, Platelet Count 165, Mean Platelet Volume 6.9, Neutrophils (%) (Auto) 59.8, Lymphocytes (%) (Auto) 31.2, Monocytes (%) (Auto) 6.9, Eosinophils (%) (Auto) 1.1, Basophils (%) (Auto) 1.1, Sodium Level 144, Potassium Level 3.4L, Chloride Level 102, Carbon Dioxide Level 43*H, Anion Gap -1L, Blood Urea Nitrogen 15, Creatinine 0.9, Estimat Glomerular Filtration Rate > 60, Glucose Level 85, Calcium Level 8.2L, Phosphorus Level 3.3, Magnesium Level 1.8, Total Bilirubin 1.7H, Direct Bilirubin 0.3, Aspartate Amino Transf (AST/SGOT) 13L, Alanine Aminotransferase (ALT/SGPT) 11L, Alkaline Phosphatase 48, Total Protein 6.8, Albumin 2.8L, Globulin 4.0, Albumin/Globulin Ratio 0.7L 06/03/20 09:38: Arterial Blood pH 7.518H, Arterial Blood Partial Pressure CO2 53.7H, Arterial Blood Partial Pressure O2 37.2*L, Arterial Blood HCO3 42.7*H, Arterial Blood Oxygen Saturation 74.2*L, Arterial Blood Base Excess 17.6*H, Raphael Test Positive Height (Feet): 5 Height (Inches): 3.00 Weight (Pounds): 183 Assessment/Plan Problem List: (1) Anemia ICD Codes: D64.9 - Anemia, unspecified SNOMED: 824289191 (2) Hypercapnic respiratory failure ICD Codes: J96.92 - Respiratory failure, unspecified with hypercapnia SNOMED: 368558300 (3) COVID-19 ICD Codes: U07.1 - COVID-19 SNOMED: 139042758 (4) COPD (chronic obstructive pulmonary disease) ICD Codes: J44.9 - Chronic obstructive pulmonary disease, unspecified SNOMED: 24231506 (5) Psychosis ICD Codes: F29 - Unspecified psychosis not due to a substance or known physiological condition SNOMED: 77441121 (6) Hypoxia ICD Codes: R09.02 - Hypoxemia SNOMED: 221017983 (7) Renal failure (ARF), acute on chronic ICD Codes: N17.9 - Acute kidney failure, unspecified; N18.9 - Chronic kidney disease, unspecified SNOMED: 572576296 (8) CHF exacerbation ICD Codes: I50.9 - Heart failure, unspecified SNOMED: 861976977, [id number] Status: progressing, unchanged, deteriorating Assessment/Plan: has mutiple pauses per dr pichardo psych pt tendency to refuse care covid positive pna sepsis copd exac chf exac Dani Perera MD Jun 03, 2020 21:41
--- NOTE | 2020-06-03 23:03 | Psychiatric Progress Note ---
Psychiatry Progress Note Psychiatry Progress Note Subjective the pt has waxing and waning o consciousness on restraints episodes agitation confused Medications Current Medications Medications (Trade) Dose Ordered Sig/Angie Route PRN Reason Start Time Stop Time Status Last Admin Dose Admin Acetaminophen (Tylenol) 650 mg Q6H PRN NG Fever >100.5 05/14/20 21:00 06/13/20 20:59 05/14/20 21:10 Acetaminophen (Tylenol) 650 mg Q6H PRN NG Mild Pain (Pain Scale 1-3) 05/14/20 21:00 06/13/20 20:59 05/17/20 11:06 Chlorhexidine Gluconate (Ruba-Hex 2%) 1 applic DAILY@1999 TOPIC 05/31/20 20:00 08/29/20 19:59 06/03/20 21:01 Clonidine HCl (Catapres Tab) 0.1 mg Q4H PRN ORAL sbp>170 05/11/20 17:15 08/09/20 17:14 Docusate Sodium (Colace) 100 mg TWICE A DAY ORAL 05/25/20 18:00 06/24/20 17:59 06/02/20 09:24 Furosemide (Lasix) 40 mg EVERY 12 HOURS IV 05/30/20 09:30 06/29/20 09:29 06/03/20 21:02 Haloperidol Lactate (Haldol) 5 mg Q6H PRN IM Agitation 05/13/20 20:45 06/27/20 20:44 05/28/20 02:40 Heparin Sodium (Porcine) (Heparin 5000 units/ml) 5,000 units EVERY 12 HOURS SUBQ 05/25/20 21:00 07/09/20 20:59 06/03/20 21:04 Levothyroxine Sodium (Synthroid) 50 mcg DAILY@0630 ORAL 05/14/20 06:30 06/13/20 06:29 06/03/20 06:05 Pantoprazole (Protonix) 40 mg Q12HR ORAL 05/26/20 21:00 06/25/20 20:59 06/03/20 21:02 Polyethylene Glycol (Miralax) 17 gm BEDTIME ORAL 05/25/20 21:00 06/24/20 20:59 06/03/20 21:02 Potassium Chloride (K-Dur) 40 meq DAILY ORAL 06/03/20 09:00 08/27/20 10:29 Quetiapine Fumarate (SEROqueL) 50 mg Q12HR ORAL 05/24/20 21:00 07/08/20 20:59 06/03/20 21:02 Neurological/Psychiatric: Reports: anxiety; Denies: no symptoms, depressed, emotional problems, headache, numbness, paresthesia, pre-existing deficit, seizure, tingling, tremors, weakness, other Allergies: Coded Allergies: LITHIUM (Verified Allergy, Unknown, 02/07/19) Objective Data Height (Feet): 5 Height (Inches): 3.00 Weight (Pounds): 183 General Appearance: lethargic, confused, agitated Additional Comments: waxing and waning consciousness. Disoriented. Mood is neutral to agitation. Affect is flat. Thought process, there is paucity of thought process. Thought content, no suicidal or homicidal ideation. Cognition is impaired. Insight and judgment is impaired. Assessment/Plan [place] I: [place] I Acute toxic encephalopathy. Schizophrenia. [place] II Deferred. [place] III COVID-19. [place] IV Low. [place] V 20 PLAN: 1. Discontinue the IV Haldol. 2. Start the patient on Haldol IM. 3. The patient benefits from bilateral soft restraints. 4. Provide the patient with reality orientation. 5. Discussed with the nurse. Status: progressing, unchanged, deteriorating Status Narrative [place] I Acute toxic encephalopathy. Schizophrenia. [place] II Deferred. [place] III COVID-19. [place] IV Low. [place] V 20 PLAN: 1. Discontinue the IV Haldol. 2. Start the patient on Haldol IM. 3. The patient benefits from bilateral soft restraints. 4. Provide the patient with reality orientation. 5. Discussed with the nurse. Assessment/Plan: [place] I Acute toxic encephalopathy. Schizophrenia. [place] II Deferred. [place] III COVID-19. [place] IV Low. [place] V 20 PLAN: 1. Discontinue the IV Haldol. 2. Start the patient on Haldol IM. 3. The patient benefits from bilateral soft restraints. 4. Provide the patient with reality orientation. 5. Discussed with the nurse. Kiana Hernandez MD Jun 03, 2020 23:03
[2020-06-04] VITALS: BP 127/47
[2020-06-04 04:00] VITALS: BP 138/53
[2020-06-04 05:07] LABS: BASOPHILS % (AUTO) 0.9 % (0.0-2.0); EOSINOPHILS % (AUTO) 1.9 % (0.0-3.0); HEMATOCRIT 25.5 % (37.0-47.0); HEMOGLOBIN 8.6 G/DL (12.0-16.0); LYMPHOCYTES % (AUTO) 33.5 % (20.0-45.0); MEAN CORPUSCULAR VOLUME 95 FL (80-99); MONOCYTES % (AUTO) 7.5 % (1.0-10.0); NEUTROPHILS % (AUTO) 56.2 % (45.0-75.0); PLATELET COUNT 168 K/UL (150-450); RED BLOOD COUNT 2.68 M/UL (4.20-5.40); RED CELL DISTRIBUTION WIDTH 16.4 % (11.6-14.8); WHITE BLOOD COUNT 4.1 K/UL (4.8-10.8)
--- NOTE | 2020-06-04 06:35 | Hematology/Onc Progress Note ---
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 ( combination of moderate aortic regurgitation and severe mitral regurgitation) --> diuresis as per cards --> lasix last time # Severe ascending aortic dilatation --> per cardsDr Davies # Hypertension # Parkinson disease # Hyperlipidemia # Hypothyroidism # Dementia # Obesity # Schizophrenia --> as per [facility] --> restraints # Dvt ppx heparin sq Appreciate digital media sales consultant care and alexei Rn Subjective HEENT: Denies: no symptoms, eye pain, blurred vision, tearing, double vision, ear pain, ear discharge, nose pain, nose congestion, throat pain, throat swelling, mouth pain, mouth swelling, other Cardiovascular: Denies: no symptoms, chest pain, edema, irregular heart rate, lightheadedness, palpitations, syncope, other Respiratory: Denies: no symptoms, cough, shortness of breath, SOB with excertion, SOB at rest, sputum, wheezing, other Gastrointestinal/Abdominal: Denies: no symptoms, abdomen distended, abdominal pain, black stools, tarry stools, blood in stool, constipated, diarrhea, difficulty swallowing, nausea, poor appetite, poor fluid intake, rectal bleeding, vomiting, other Neurologic/Psychiatric: Denies: no symptoms, anxiety, depressed, emotional problems, headache, numbness, paresthesia, pre-existing deficit, seizure, tingling, tremors, weakness, other Endocrine: Denies: no symptoms, excessive sweating, flushing, intolerance to cold, intolerance to heat, increased hunger, increased thirst, increased urine, unexplained weight gain, unexplained weight loss, other Hematologic/Lymphatic: Denies: no symptoms, anemia, easy bleeding, easy bruising, adenopathy, other Allergies: Coded Allergies: LITHIUM (Verified Allergy, Unknown, 02/07/19) Subjective 06/01 nonrebreather, 15L, some mild pain in back, chest, no night sweats 06/02 remains on nonrebreather, labs are noted, no bleeding or night sweats 06/03 labs reviewed, meds noted, nonrebreather, c02 was elevated, to inform pulm 06/04 labs reviewed, meds noted, on NR, no night sweats, meds noted Objective Objective Current Medications Medications (Trade) Dose Ordered Sig/Angie Route PRN Reason Start Time Stop Time Status Last Admin Dose Admin Acetaminophen (Tylenol) 650 mg Q6H PRN NG Fever >100.5 05/14/20 21:00 06/13/20 20:59 05/14/20 21:10 Acetaminophen (Tylenol) 650 mg Q6H PRN NG Mild Pain (Pain Scale 1-3) 05/14/20 21:00 06/13/20 20:59 05/17/20 11:06 Chlorhexidine Gluconate (Ruba-Hex 2%) 1 applic DAILY@1999 TOPIC 05/31/20 20:00 08/29/20 19:59 06/03/20 21:01 Clonidine HCl (Catapres Tab) 0.1 mg Q4H PRN ORAL sbp>170 05/11/20 17:15 08/09/20 17:14 Docusate Sodium (Colace) 100 mg TWICE A DAY ORAL 05/25/20 18:00 06/24/20 17:59 06/02/20 09:24 Furosemide (Lasix) 40 mg EVERY 12 HOURS IV 05/30/20 09:30 06/29/20 09:29 06/03/20 21:02 Haloperidol Lactate (Haldol) 5 mg Q6H PRN IM Agitation 05/13/20 20:45 06/27/20 20:44 05/28/20 02:40 Heparin Sodium (Porcine) (Heparin 5000 units/ml) 5,000 units EVERY 12 HOURS SUBQ 05/25/20 21:00 07/09/20 20:59 06/03/20 21:04 Levothyroxine Sodium (Synthroid) 50 mcg DAILY@0630 ORAL 05/14/20 06:30 06/13/20 06:29 06/04/20 05:53 Pantoprazole (Protonix) 40 mg Q12HR ORAL 05/26/20 21:00 06/25/20 20:59 06/03/20 21:02 Polyethylene Glycol (Miralax) 17 gm BEDTIME ORAL 05/25/20 21:00 06/24/20 20:59 06/03/20 21:02 Potassium Chloride (K-Dur) 40 meq DAILY ORAL 06/03/20 09:00 08/27/20 10:29 Quetiapine Fumarate (SEROqueL) 50 mg Q12HR ORAL 05/24/20 21:00 07/08/20 20:59 06/03/20 21:02 Last 24 Hour Vital Signs Date Time Temp Pulse Resp B/P (MAP) Pulse Ox O2 Delivery O2 Flow Rate FiO2 06/04/20 04:00 Venturi Mask 8.0 06/04/20 04:00 14.0 06/04/20 04:00 97.4 64 24 138/53 (81) 97 06/04/20 03:44 75 06/04/20 00:26 62 06/04/20 00:09 Venturi Mask 8.0 06/04/20 00:00 14.0 06/04/20 00:00 97.6 61 21 127/47 (73) 96 06/03/20 20:10 95 Venturi Mask 14.0 55 06/03/20 20:00 14.0 06/03/20 20:00 97.6 83 21 128/48 (74) 96 06/03/20 20:00 Venturi Mask 8.0 06/03/20 19:50 55 06/03/20 16:00 41 06/03/20 16:00 Venturi Mask 8.0 06/03/20 16:00 96.8 64 20 121/47 (71) 95 06/03/20 16:00 14.0 06/03/20 12:12 96.8 69 20 101/45 (63) 95 06/03/20 12:11 14.0 06/03/20 12:00 61 06/03/20 11:46 Venturi Mask 8.0 06/03/20 08:00 14.0 06/03/20 08:00 63 06/03/20 08:00 96.4 71 20 117/47 (70) 94 06/03/20 08:00 Venturi Mask 8.0 06/03/20 04:00 Venturi Mask 8.0 06/03/20 04:00 14.0 06/03/20 04:00 96.4 86 20 147/60 (89) 98 06/03/20 04:00 61 06/03/20 00:00 96.4 86 20 137/56 (83) 98 06/03/20 00:00 Venturi Mask 8.0 06/03/20 00:00 50 06/02/20 22:00 14.0 06/02/20 20:00 Venturi Mask 8.0 06/02/20 20:00 97.7 88 20 113/60 (77) 98 06/02/20 20:00 56 06/02/20 16:00 14.0 06/02/20 16:00 Venturi Mask 8.0 06/02/20 16:00 60 06/02/20 16:00 97.7 61 20 117/49 (71) 98 06/02/20 12:00 Venturi Mask 8.0 06/02/20 12:00 97.2 68 18 121/56 (77) 97 06/02/20 12:00 58 06/02/20 12:00 14.0 06/02/20 08:00 Venturi Mask 8.0 06/02/20 08:00 14.0 06/02/20 08:00 78 06/02/20 08:00 97.1 84 18 113/44 (67) 98 Intake and Output 06/03/20 06/04/20 19:00 07:00 Intake Total 120 ml 150 ml Output Total 1000 ml 0 ml Balance -880 ml 150 ml Intake Oral 120 ml 150 ml Output Urine Total 1000 ml 0 ml # Voids 2 Labs Test 06/01/20 20:00 06/02/20 04:00 06/03/20 04:30 06/03/20 09:38 White Blood Count 4.5 K/UL (4.8-10.8) 4.9 K/UL (4.8-10.8) 4.0 K/UL (4.8-10.8) Red Blood Count 2.59 M/UL (4.20-5.40) 2.64 M/UL (4.20-5.40) 2.82 M/UL (4.20-5.40) Hemoglobin 8.2 G/DL (12.0-16.0) 8.4 G/DL (12.0-16.0) 8.9 G/DL (12.0-16.0) Hematocrit 23.9 % (37.0-47.0) 25.3 % (37.0-47.0) 25.7 % (37.0-47.0) Mean Corpuscular Volume 92 FL (80-99) 96 FL (80-99) 91 FL (80-99) Mean Corpuscular Hemoglobin 31.8 PG (27.0-31.0) 31.8 PG (27.0-31.0) 31.7 PG (27.0-31.0) Mean Corpuscular Hemoglobin Concent 34.5 G/DL (32.0-36.0) 33.2 G/DL (32.0-36.0) 34.9 G/DL (32.0-36.0) Red Cell Distribution Width 17.1 % (11.6-14.8) 16.1 % (11.6-14.8) 17.5 % (11.6-14.8) Platelet Count 151 K/UL (150-450) 155 K/UL (150-450) 165 K/UL (150-450) Mean Platelet Volume 6.8 FL (6.5-10.1) 7.6 FL (6.5-10.1) 6.9 FL (6.5-10.1) Neutrophils (%) (Auto) 62.2 % (45.0-75.0) 59.1 % (45.0-75.0) 59.8 % (45.0-75.0) Lymphocytes (%) (Auto) 29.9 % (20.0-45.0) 31.8 % (20.0-45.0) 31.2 % (20.0-45.0) Monocytes (%) (Auto) 5.7 % (1.0-10.0) 7.3 % (1.0-10.0) 6.9 % (1.0-10.0) Eosinophils (%) (Auto) 1.4 % (0.0-3.0) 1.2 % (0.0-3.0) 1.1 % (0.0-3.0) Basophils (%) (Auto) 0.8 % (0.0-2.0) 0.6 % (0.0-2.0) 1.1 % (0.0-2.0) Sodium Level 145 MMOL/L (136-145) 144 MMOL/L (136-145) Potassium Level 4.0 MMOL/L (3.5-5.1) 3.4 MMOL/L (3.5-5.1) Chloride Level 104 MMOL/L (98-107) 102 MMOL/L (98-107) Carbon Dioxide Level 40 MMOL/L (21-32) 43 MMOL/L (21-32) Anion Gap -1 mmol/L (5-15) -1 mmol/L (5-15) Blood Urea Nitrogen 14 mg/dL (7-18) 15 mg/dL (7-18) Creatinine 1.0 MG/DL (0.55-1.30) 0.9 MG/DL (0.55-1.30) Estimat Glomerular Filtration Rate 53.3 mL/min (>60) > 60 mL/min (>60) Glucose Level 66 MG/DL (74-106) 85 MG/DL (74-106) Calcium Level 8.1 MG/DL (8.5-10.1) 8.2 MG/DL (8.5-10.1) Phosphorus Level 2.0 MG/DL (2.5-4.9) 3.3 MG/DL (2.5-4.9) Total Bilirubin 1.2 MG/DL (0.2-1.0) 1.7 MG/DL (0.2-1.0) Direct Bilirubin 0.2 MG/DL (0.0-0.3) 0.3 MG/DL (0.0-0.3) Aspartate Amino Transf (AST/SGOT) 15 U/L (15-37) 13 U/L (15-37) Alanine Aminotransferase (ALT/SGPT) 13 U/L (12-78) 11 U/L (12-78) Alkaline Phosphatase 47 U/L (46-116) 48 U/L (46-116) Total Protein 6.7 G/DL (6.4-8.2) 6.8 G/DL (6.4-8.2) Albumin 2.8 G/DL (3.4-5.0) 2.8 G/DL (3.4-5.0) Globulin 3.9 g/dL 4.0 g/dL Albumin/Globulin Ratio 0.7 (1.0-2.7) 0.7 (1.0-2.7) Magnesium Level 1.8 MG/DL (1.8-2.4) Arterial Blood pH 7.518 (7.350-7.450) Arterial Blood Partial Pressure CO2 53.7 mmHg (35.0-45.0) Arterial Blood Partial Pressure O2 37.2 mmHg (75.0-100.0) Arterial Blood HCO3 42.7 mmol/L (22.0-26.0) Arterial Blood Oxygen Saturation 74.2 % (95-100) Arterial Blood Base Excess 17.6 (-2-2) Raphael Test Positive Test 06/04/20 04:00 White Blood Count 4.1 K/UL (4.8-10.8) Red Blood Count 2.68 M/UL (4.20-5.40) Hemoglobin 8.6 G/DL (12.0-16.0) Hematocrit 25.5 % (37.0-47.0) Mean Corpuscular Volume 95 FL (80-99) Mean Corpuscular Hemoglobin 32.0 PG (27.0-31.0) Mean Corpuscular Hemoglobin Concent 33.7 G/DL (32.0-36.0) Red Cell Distribution Width 16.4 % (11.6-14.8) Platelet Count 168 K/UL (150-450) Mean Platelet Volume 6.9 FL (6.5-10.1) Neutrophils (%) (Auto) 56.2 % (45.0-75.0) Lymphocytes (%) (Auto) 33.5 % (20.0-45.0) Monocytes (%) (Auto) 7.5 % (1.0-10.0) Eosinophils (%) (Auto) 1.9 % (0.0-3.0) Basophils (%) (Auto) 0.9 % (0.0-2.0) Height (Feet): 5 Height (Inches): 3.00 Weight (Pounds): 183 Objective Physical Exam: Vitals: reviewed General: NAD HEENT: nc, at Neck: supple Chest: decreased breath sounds bilaterally, crackles+++ 15L NRM Cardiovascular: RRR, no s3, s4 Abdomen: soft, nontender, nd Extremities: 1-2 + edema Neuro: nonverbal Frank Escobar MD Jun 04, 2020 06:35
[2020-06-04 08:00] VITALS: BP 106/39
[2020-06-04] MEDS: Docusate 100mg cap ORAL SCH ×2 (08:33→17:47)
[2020-06-04] MEDS: Heparin 5000 units/ml inj SUBQ SCH ×2 (08:34→20:53)
--- NOTE | 2020-06-04 11:24 | Pulmonology Progress Note ---
Subjective ROS Limited/Unobtainable: Yes Interval Events: ABG better on ventimask Constitutional: Denies: fever HEENT: Repors: no symptoms Respiratory: Reports: no symptoms Cardiovascular: Reports: no symptoms Gastrointestinal/Abdominal: Reports: no symptoms Genitourinary: Reports: no symptoms Allergies: Coded Allergies: LITHIUM (Verified Allergy, Unknown, 02/07/19) Objective Last 24 Hour Vital Signs Date Time Temp Pulse Resp B/P (MAP) Pulse Ox O2 Delivery O2 Flow Rate FiO2 06/04/20 08:00 Venturi Mask 14.0 06/04/20 08:00 14.0 06/04/20 08:00 96.6 68 22 106/39 (61) 94 06/04/20 08:00 62 06/04/20 04:00 Venturi Mask 8.0 06/04/20 04:00 14.0 06/04/20 04:00 97.4 64 24 138/53 (81) 97 06/04/20 03:44 75 06/04/20 00:26 62 06/04/20 00:09 Venturi Mask 8.0 06/04/20 00:00 14.0 06/04/20 00:00 97.6 61 21 127/47 (73) 96 06/03/20 20:10 95 Venturi Mask 14.0 55 06/03/20 20:00 14.0 06/03/20 20:00 97.6 83 21 128/48 (74) 96 06/03/20 20:00 Venturi Mask 8.0 06/03/20 19:50 55 06/03/20 16:00 41 06/03/20 16:00 Venturi Mask 8.0 06/03/20 16:00 96.8 64 20 121/47 (71) 95 06/03/20 16:00 14.0 06/03/20 12:12 96.8 69 20 101/45 (63) 95 06/03/20 12:11 14.0 06/03/20 12:00 61 06/03/20 11:46 Venturi Mask 8.0 Intake and Output 06/03/20 06/04/20 19:00 07:00 Intake Total 120 ml 150 ml Output Total 1000 ml 0 ml Balance -880 ml 150 ml Intake Oral 120 ml 150 ml Output Urine Total 1000 ml 0 ml # Voids 2 General Appearance: no acute distress HEENT: normocephalic Respiratory: no respiratory distress, decreased breath sounds Cardiovascular: normal rate Abdomen: soft, non tender, other - obese, NG tube Extremities: other - b/l 2+ pitting edema Neurologic: disoriented Microbiology Date/Time Source Procedure Growth Status 06/02/20 14:00 Nasopharynx Coronavirus COVID-19 PCR ([facility]) - Final Complete Laboratory Tests 06/04/20 04:00: White Blood Count 4.1L, Red Blood Count 2.68L, Hemoglobin 8.6L, Hematocrit 25.5L , Mean Corpuscular Volume 95, Mean Corpuscular Hemoglobin 32.0H, Mean Corpuscular Hemoglobin Concent 33.7, Red Cell Distribution Width 16.4H, Platelet Count 168, Mean Platelet Volume 6.9, Neutrophils (%) (Auto) 56.2, Lymphocytes (%) (Auto) 33.5, Monocytes (%) (Auto) 7.5, Eosinophils (%) (Auto) 1.9, Basophils (%) (Auto) 0.9 06/04/20 10:20: Arterial Blood pH 7.507H, Arterial Blood Partial Pressure CO2 55.5*H, Arterial Blood Partial Pressure O2 73.6L, Arterial Blood HCO3 43.0*H, Arterial Blood Oxygen Saturation 94.2L, Arterial Blood Base Excess 17.7*H, Raphael Test Positive Current Medications Medications (Trade) Dose Ordered Sig/Angie Route PRN Reason Start Time Stop Time Status Last Admin Dose Admin Acetaminophen (Tylenol) 650 mg Q6H PRN NG Fever >100.5 05/14/20 21:00 06/13/20 20:59 05/14/20 21:10 Acetaminophen (Tylenol) 650 mg Q6H PRN NG Mild Pain (Pain Scale 1-3) 05/14/20 21:00 06/13/20 20:59 05/17/20 11:06 Chlorhexidine Gluconate (Ruba-Hex 2%) 1 applic DAILY@1999 TOPIC 05/31/20 20:00 08/29/20 19:59 06/03/20 21:01 Clonidine HCl (Catapres Tab) 0.1 mg Q4H PRN ORAL sbp>170 05/11/20 17:15 08/09/20 17:14 Docusate Sodium (Colace) 100 mg TWICE A DAY ORAL 05/25/20 18:00 06/24/20 17:59 06/04/20 08:33 Furosemide (Lasix) 40 mg EVERY 12 HOURS IV 05/30/20 09:30 06/29/20 09:29 06/04/20 08:33 Haloperidol Lactate (Haldol) 5 mg Q6H PRN IM Agitation 05/13/20 20:45 06/27/20 20:44 05/28/20 02:40 Heparin Sodium (Porcine) (Heparin 5000 units/ml) 5,000 units EVERY 12 HOURS SUBQ 05/25/20 21:00 07/09/20 20:59 06/04/20 08:34 Levothyroxine Sodium (Synthroid) 50 mcg DAILY@0630 ORAL 05/14/20 06:30 06/13/20 06:29 06/04/20 05:53 Pantoprazole (Protonix) 40 mg Q12HR ORAL 05/26/20 21:00 06/25/20 20:59 06/04/20 08:33 Polyethylene Glycol (Miralax) 17 gm BEDTIME ORAL 05/25/20 21:00 06/24/20 20:59 06/03/20 21:02 Potassium Chloride (K-Dur) 40 meq DAILY ORAL 06/03/20 09:00 08/27/20 10:29 06/04/20 08:33 Quetiapine Fumarate (SEROqueL) 50 mg Q12HR ORAL 05/24/20 21:00 07/08/20 20:59 06/04/20 08:33 Assessment/Plan Assessment/Plan 1. Bilateral COVID-19 multilobar pneumonia. - s/p ETT - Afebrile - s/p Azithromycin, Ceftriaxone, dexamethasone - s/p remdesivir - CXR 05/31 Patchy bilateral airspace consolidations, consistent with multifocal infiltrate, similar in appearance to previous study from 05/30; Stable, small bilateral pleural effusions. 2. Hx of COPD. 3. Schizophrenia/psychosis - On haloperidol per Dr. Hernandez; refusing all PO medications 4. Hypoxia. -Now on 14L/min via Ventimask; ABG better - Latest CXR (05/31) unchanged - on Lasix 40 mg IV BID; added Diamox - recommend continues diuresis with ongoing BUN/Cr monitoring 5. Anemia DVT ppx Tirmizi,Sincere Brady MD Jun 04, 2020 11:24
--- NOTE | 2020-06-04 11:39 | Infectious Diseases Prog Note ---
Assessment/Plan Assessment/Plan antibiotics : none A 1. COVID-19 pneumonia on 8 liters, 95 % saturation s/p remdesivir s/p dexamethasone 2. COPD, 3. CHF, 4. Parkinson disease, 5. schizoaffective disorder, 6. Dementia, 7. Obstructive sleep apnea, P 1, continue off antibiotics Subjective ROS Limited/Unobtainable: Yes Allergies: Coded Allergies: LITHIUM (Verified Allergy, Unknown, 02/07/19) Objective Last 24 Hour Vital Signs Date Time Temp Pulse Resp B/P (MAP) Pulse Ox O2 Delivery O2 Flow Rate FiO2 06/04/20 08:00 Venturi Mask 14.0 06/04/20 08:00 14.0 06/04/20 08:00 96.6 68 22 106/39 (61) 94 06/04/20 08:00 62 06/04/20 04:00 Venturi Mask 8.0 06/04/20 04:00 14.0 06/04/20 04:00 97.4 64 24 138/53 (81) 97 06/04/20 03:44 75 06/04/20 00:26 62 06/04/20 00:09 Venturi Mask 8.0 06/04/20 00:00 14.0 06/04/20 00:00 97.6 61 21 127/47 (73) 96 06/03/20 20:10 95 Venturi Mask 14.0 55 06/03/20 20:00 14.0 06/03/20 20:00 97.6 83 21 128/48 (74) 96 06/03/20 20:00 Venturi Mask 8.0 06/03/20 19:50 55 06/03/20 16:00 41 06/03/20 16:00 Venturi Mask 8.0 06/03/20 16:00 96.8 64 20 121/47 (71) 95 06/03/20 16:00 14.0 06/03/20 12:12 96.8 69 20 101/45 (63) 95 06/03/20 12:11 14.0 06/03/20 12:00 61 06/03/20 11:46 Venturi Mask 8.0 Height (Feet): 5 Height (Inches): 3.00 Weight (Pounds): 183 Microbiology Date/Time Source Procedure Growth Status 06/02/20 14:00 Nasopharynx Coronavirus COVID-19 PCR ([facility]) - Final Complete Laboratory Tests Test 06/04/20 04:00 06/04/20 10:20 White Blood Count 4.1 K/UL (4.8-10.8) L Red Blood Count 2.68 M/UL (4.20-5.40) L Hemoglobin 8.6 G/DL (12.0-16.0) L Hematocrit 25.5 % (37.0-47.0) L Mean Corpuscular Volume 95 FL (80-99) Mean Corpuscular Hemoglobin 32.0 PG (27.0-31.0) H Mean Corpuscular Hemoglobin Concent 33.7 G/DL (32.0-36.0) Red Cell Distribution Width 16.4 % (11.6-14.8) H Platelet Count 168 K/UL (150-450) Mean Platelet Volume 6.9 FL (6.5-10.1) Neutrophils (%) (Auto) 56.2 % (45.0-75.0) Lymphocytes (%) (Auto) 33.5 % (20.0-45.0) Monocytes (%) (Auto) 7.5 % (1.0-10.0) Eosinophils (%) (Auto) 1.9 % (0.0-3.0) Basophils (%) (Auto) 0.9 % (0.0-2.0) Arterial Blood pH 7.507 (7.350-7.450) Arterial Blood Partial Pressure CO2 55.5 mmHg (35.0-45.0) *H Arterial Blood Partial Pressure O2 73.6 mmHg (75.0-100.0) L Arterial Blood HCO3 43.0 mmol/L (22.0-26.0) *H Arterial Blood Oxygen Saturation 94.2 % (95-100) L Arterial Blood Base Excess 17.7 (-2-2) *H Raphael Test Positive Current Medications Medications (Trade) Dose Ordered Sig/Angie Route PRN Reason Start Time Stop Time Status Last Admin Dose Admin Acetaminophen (Tylenol) 650 mg Q6H PRN NG Fever >100.5 05/14/20 21:00 06/13/20 20:59 05/14/20 21:10 Acetaminophen (Tylenol) 650 mg Q6H PRN NG Mild Pain (Pain Scale 1-3) 05/14/20 21:00 06/13/20 20:59 05/17/20 11:06 Acetazolamide (Diamox) 250 mg FOUR TIMES A DAY ORAL 06/04/20 13:00 07/04/20 12:59 UNV Chlorhexidine Gluconate (Ruba-Hex 2%) 1 applic DAILY@2000 TOPIC 05/31/20 20:00 08/29/20 19:59 06/03/20 21:01 Clonidine HCl (Catapres Tab) 0.1 mg Q4H PRN ORAL sbp>170 05/11/20 17:15 08/09/20 17:14 Docusate Sodium (Colace) 100 mg TWICE A DAY ORAL 05/25/20 18:00 06/24/20 17:59 06/04/20 08:33 Furosemide (Lasix) 40 mg EVERY 12 HOURS IV 05/30/20 09:30 06/29/20 09:29 06/04/20 08:33 Haloperidol Lactate (Haldol) 5 mg Q6H PRN IM Agitation 05/13/20 20:45 06/27/20 20:44 05/28/20 02:40 Heparin Sodium (Porcine) (Heparin 5000 units/ml) 5,000 units EVERY 12 HOURS SUBQ 05/25/20 21:00 07/09/20 20:59 06/04/20 08:34 Levothyroxine Sodium (Synthroid) 50 mcg DAILY@0630 ORAL 05/14/20 06:30 06/13/20 06:29 06/04/20 05:53 Pantoprazole (Protonix) 40 mg Q12HR ORAL 05/26/20 21:00 06/25/20 20:59 06/04/20 08:33 Polyethylene Glycol (Miralax) 17 gm BEDTIME ORAL 05/25/20 21:00 06/24/20 20:59 06/03/20 21:02 Potassium Chloride (K-Dur) 40 meq DAILY ORAL 06/03/20 09:00 08/27/20 10:29 06/04/20 08:33 Quetiapine Fumarate (SEROqueL) 50 mg Q12HR ORAL 05/24/20 21:00 07/08/20 20:59 06/04/20 08:33 Pablito Peralta MD Jun 04, 2020 11:39
[2020-06-04 12:00] VITALS: BP 133/47
--- NOTE | 2020-06-04 13:12 | Nephrology Progress Note ---
Assessment/Plan Problem List: (1) Renal failure (ARF), acute on chronic (2) Hypercapnic respiratory failure (3) CHF exacerbation (4) Anemia Assessment Azotemia/renal failure Acute respiratory failure most likely secondary to CHF, on mechanical ventilation History of COPD Hypertension Hyperlipemia Schizophrenia/psychosis Plan June 04: Remains on Venturi mask. No can panel done today. ABG results reviewed. Continue per pulmonary. June 03: Poor respiratory status. ABG noted. Patient hypoxic. Renal parameters somewhat stable. Continue per pulmonary. June 02: Labs reviewed. Low phosphorus replaced. Patient has periodic severe bradycardia. Continue per cardiology. June 01: Labs reviewed. Low magnesium replaced. Renal parameters stable. Hemoglobin level reasonable. Continue per consultants. May 31: Labs reviewed. Abnormal electrolytes at rest. Hemoglobin higher. Discussed with DARREL Cooper. Continue per consultants. May 30: Lab reviewed. Potassium and phosphorus replaced. Hemoglobin higher after transfusion. Continue per consultants. May 29: Lab reviewed. Patient anemic. Electrolyte abnormalities reviewed and addressed. Continue per consultants. Remains stable from renal standpoint of view. May 28: Patient was not transfused despite of my order since yesterday. Will defer transfusion to PMD/[place]. Patient remains stable from renal standpoint of view. Continue per consultants. Discussed with Marlene nursing charge in [place]. May 27: Remains on Venturi mask. Labs reviewed. Abnormal electrolytes addressed. Hemoglobin low. Will transfuse 1 unit of packed RBCs today May 26: On Venturi mask. Labs reviewed. Abnormal electrolytes addressed. Continue per consultants and pulmonary support. May 25: On Venturi mask. Lethargic. No labs drawn today. Will monitor renal parameters. Per orders. May 24: Remains extubated. Will start on diet with high alert for possible aspiration. Continue to monitor renal parameters. May 23: Continues to be extubated. On nonrebreathing mask. Labs reviewed. Renal parameters stable. Discussed with RN. Continue per current management. May 22: Now extubated on nonrebreathing mask. Labs reviewed. Renal parameters stable. Abnormal electrolytes addressed. Discussed with RN. May 21: Remains intubated. Labs reviewed. Abnormal electrolytes addressed. Discussed with RN. May 20: Remains intubated. Abnormal electrolyte noted on today's lab results and addressed. Continue per consultants. May 19: Patient remains intubated. Labs reviewed. Abnormal electrolytes addressed. Continue per current management. May 18: Patient seen in ICU. Remains intubated. Weaning is being tried. Discussed with RN. Labs reviewed. Abnormal electrolyte addressed. Continue per consultants. May 17: Labs reviewed. Remains intubated. Stable from renal standpoint of view. Continue weaning. Discussed with RN. May 16: Labs reviewed. Remains intubated. Remains full code. Stable from renal standpoint of view. Abnormal electrolytes addressed. May 15: Labs reviewed. Renal parameters stable. Discussed with RN. Patient remains intubated on ventilator and full code. Continue per consultants. May 14: Labs reviewed. Discussed with RN. Abnormal electrolyte addressed. Continue per current management. Patient seen in ICU. Discussed with RN. Today's labs pending. Patient remains on 6 mics of dopamine. Pulmonary support Monitor intake and output Monitor electrolytes Continue per consultants Per orders Subjective ROS Limited/Unobtainable: Yes Objective Objective Last 24 Hour Vital Signs Date Time Temp Pulse Resp B/P (MAP) Pulse Ox O2 Delivery O2 Flow Rate FiO2 06/04/20 08:00 Venturi Mask 14.0 06/04/20 08:00 14.0 06/04/20 08:00 96.6 68 22 106/39 (61) 94 06/04/20 08:00 62 06/04/20 04:00 Venturi Mask 8.0 06/04/20 04:00 14.0 06/04/20 04:00 97.4 64 24 138/53 (81) 97 06/04/20 03:44 75 06/04/20 00:26 62 06/04/20 00:09 Venturi Mask 8.0 06/04/20 00:00 14.0 06/04/20 00:00 97.6 61 21 127/47 (73) 96 06/03/20 20:10 95 Venturi Mask 14.0 55 06/03/20 20:00 14.0 06/03/20 20:00 97.6 83 21 128/48 (74) 96 06/03/20 20:00 Venturi Mask 8.0 06/03/20 19:50 55 06/03/20 16:00 41 06/03/20 16:00 Venturi Mask 8.0 06/03/20 16:00 96.8 64 20 121/47 (71) 95 06/03/20 16:00 14.0 Intake and Output 06/03/20 06/04/20 19:00 07:00 Intake Total 120 ml 150 ml Output Total 1000 ml 0 ml Balance -880 ml 150 ml Intake Oral 120 ml 150 ml Output Urine Total 1000 ml 0 ml # Voids 2 Current Medications Medications (Trade) Dose Ordered Sig/Angie Route PRN Reason Start Time Stop Time Status Last Admin Dose Admin Acetaminophen (Tylenol) 650 mg Q6H PRN NG Fever >100.5 05/14/20 21:00 06/13/20 20:59 05/14/20 21:10 Acetaminophen (Tylenol) 650 mg Q6H PRN NG Mild Pain (Pain Scale 1-3) 05/14/20 21:00 06/13/20 20:59 05/17/20 11:06 Acetazolamide (Diamox) 250 mg FOUR TIMES A DAY ORAL 06/04/20 13:30 07/04/20 13:29 Chlorhexidine Gluconate (Ruba-Hex 2%) 1 applic DAILY@1999 TOPIC 05/31/20 20:00 08/29/20 19:59 06/03/20 21:01 Clonidine HCl (Catapres Tab) 0.1 mg Q4H PRN ORAL sbp>170 05/11/20 17:15 08/09/20 17:14 Docusate Sodium (Colace) 100 mg TWICE A DAY ORAL 05/25/20 18:00 06/24/20 17:59 06/04/20 08:33 Furosemide (Lasix) 40 mg EVERY 12 HOURS IV 05/30/20 09:30 06/29/20 09:29 06/04/20 08:33 Haloperidol Lactate (Haldol) 5 mg Q6H PRN IM Agitation 05/13/20 20:45 06/27/20 20:44 05/28/20 02:40 Heparin Sodium (Porcine) (Heparin 5000 units/ml) 5,000 units EVERY 12 HOURS SUBQ 05/25/20 21:00 07/09/20 20:59 06/04/20 08:34 Levothyroxine Sodium (Synthroid) 50 mcg DAILY@0630 ORAL 05/14/20 06:30 06/13/20 06:29 06/04/20 05:53 Pantoprazole (Protonix) 40 mg Q12HR ORAL 05/26/20 21:00 06/25/20 20:59 06/04/20 08:33 Polyethylene Glycol (Miralax) 17 gm BEDTIME ORAL 05/25/20 21:00 06/24/20 20:59 06/03/20 21:02 Potassium Chloride (K-Dur) 40 meq DAILY ORAL 06/03/20 09:00 08/27/20 10:29 06/04/20 08:33 Quetiapine Fumarate (SEROqueL) 50 mg Q12HR ORAL 05/24/20 21:00 07/08/20 20:59 06/04/20 08:33 Laboratory Tests 06/04/20 04:00: White Blood Count 4.1L, Red Blood Count 2.68L, Hemoglobin 8.6L, Hematocrit 25.5L , Mean Corpuscular Volume 95, Mean Corpuscular Hemoglobin 32.0H, Mean Corpuscular Hemoglobin Concent 33.7, Red Cell Distribution Width 16.4H, Platelet Count 168, Mean Platelet Volume 6.9, Neutrophils (%) (Auto) 56.2, Lymphocytes (%) (Auto) 33.5, Monocytes (%) (Auto) 7.5, Eosinophils (%) (Auto) 1.9, Basophils (%) (Auto) 0.9 06/04/20 10:20: Arterial Blood pH 7.507H, Arterial Blood Partial Pressure CO2 55.5*H, Arterial Blood Partial Pressure O2 73.6L, Arterial Blood HCO3 43.0*H, Arterial Blood Oxygen Saturation 94.2L, Arterial Blood Base Excess 17.7*H, Raphael Test Positive Height (Feet): 5 Height (Inches): 3.00 Weight (Pounds): 183 General Appearance: no apparent distress, lethargic EENT: other - On Venturi mask Cardiovascular: normal rate Respiratory/Chest: decreased breath sounds Abdomen: distended Bryan Ochoa MD Jun 04, 2020 13:12
--- NOTE | 2020-06-04 13:32 | Cardiac Electrophysiology PN ---
Assessment/Plan Assessment/Plan 1. Covid PNA and respiratory failure. S/P Remdesevir and Dexamethasone Self extubated on 14 liter venturi Mask Off Abx per ID. On Lasix [address] Myers 2. SSS with 8 pauses of more than 3 seconds including 9 and 10 second pauses off any QUEZADA or AVN blockers. Will need pacer consent from conservator/court and ID clearance 3. Hypotension. Off Dopamine.Tolerating Lasix. EF 55% 4. Schizophrenia and psychosis. 5. S/P MRSA & Klebsiella pneumonia treated DW RN Subjective Subjective Self extubated on 05/22/20 on 14 liter VM in Covid isolation S/P Left arm PICC line placement as has no iv access. Got iv K and MG Had multiple pauses of more than 3 seconds including a 4s and 7s and a 10 second pause at 1 AM on 05/31 Had pauses of 7, 8 and 6 seconds again 06/01/20 Conservator deferred authorization for PPM to court. Has positive blood Cx and ID clearance also pending pre pacer implant Objective Last 24 Hour Vital Signs Date Time Temp Pulse Resp B/P (MAP) Pulse Ox O2 Delivery O2 Flow Rate FiO2 06/04/20 08:00 Venturi Mask 14.0 06/04/20 08:00 14.0 06/04/20 08:00 96.6 68 22 106/39 (61) 94 06/04/20 08:00 62 06/04/20 04:00 Venturi Mask 8.0 06/04/20 04:00 14.0 06/04/20 04:00 97.4 64 24 138/53 (81) 97 06/04/20 03:44 75 06/04/20 00:26 62 06/04/20 00:09 Venturi Mask 8.0 06/04/20 00:00 14.0 06/04/20 00:00 97.6 61 21 127/47 (73) 96 06/03/20 20:10 95 Venturi Mask 14.0 55 06/03/20 20:00 14.0 06/03/20 20:00 97.6 83 21 128/48 (74) 96 06/03/20 20:00 Venturi Mask 8.0 06/03/20 19:50 55 06/03/20 16:00 41 06/03/20 16:00 Venturi Mask 8.0 06/03/20 16:00 96.8 64 20 121/47 (71) 95 06/03/20 16:00 14.0 Intake and Output 06/03/20 06/04/20 19:00 07:00 Intake Total 120 ml 150 ml Output Total 1000 ml 0 ml Balance -880 ml 150 ml Intake Oral 120 ml 150 ml Output Urine Total 1000 ml 0 ml # Voids 2 Laboratory Tests Test 06/04/20 04:00 06/04/20 10:20 White Blood Count 4.1 K/UL (4.8-10.8) L Red Blood Count 2.68 M/UL (4.20-5.40) L Hemoglobin 8.6 G/DL (12.0-16.0) L Hematocrit 25.5 % (37.0-47.0) L Mean Corpuscular Volume 95 FL (80-99) Mean Corpuscular Hemoglobin 32.0 PG (27.0-31.0) H Mean Corpuscular Hemoglobin Concent 33.7 G/DL (32.0-36.0) Red Cell Distribution Width 16.4 % (11.6-14.8) H Platelet Count 168 K/UL (150-450) Mean Platelet Volume 6.9 FL (6.5-10.1) Neutrophils (%) (Auto) 56.2 % (45.0-75.0) Lymphocytes (%) (Auto) 33.5 % (20.0-45.0) Monocytes (%) (Auto) 7.5 % (1.0-10.0) Eosinophils (%) (Auto) 1.9 % (0.0-3.0) Basophils (%) (Auto) 0.9 % (0.0-2.0) Arterial Blood pH 7.507 (7.350-7.450) Arterial Blood Partial Pressure CO2 55.5 mmHg (35.0-45.0) *H Arterial Blood Partial Pressure O2 73.6 mmHg (75.0-100.0) L Arterial Blood HCO3 43.0 mmol/L (22.0-26.0) *H Arterial Blood Oxygen Saturation 94.2 % (95-100) L Arterial Blood Base Excess 17.7 (-2-2) *H Raphael Test Positive Microbiology Date/Time Source Procedure Growth Status 06/02/20 14:00 Nasopharynx Coronavirus COVID-19 PCR ([facility]) - Final Complete Objective HEAD AND NECK: Positive JVD. LUNGS: Decreased breath sounds. CARDIOVASCULAR: Regular S1 and S2 with no gallop. ABDOMEN: Obese. EXTREMITIES: Bilateral 2+ pitting edema. Cameron Davies MD Jun 04, 2020 13:32
[2020-06-04 16:00] VITALS: BP 120/73
--- NOTE | 2020-06-04 17:26 | Surgery Progress Note ---
Surgery Progress Note Subjective Additional Comments afebrile, HD stable on air mattress no n/v Objective Last 24 Hour Vital Signs Date Time Temp Pulse Resp B/P (MAP) Pulse Ox O2 Delivery O2 Flow Rate FiO2 06/04/20 16:00 62 06/04/20 16:00 98.7 69 21 120/73 (89) 95 06/04/20 12:00 97.2 62 22 133/47 (75) 95 06/04/20 12:00 14.0 06/04/20 12:00 Venturi Mask 14.0 06/04/20 12:00 64 06/04/20 08:00 Venturi Mask 14.0 06/04/20 08:00 14.0 06/04/20 08:00 96.6 68 22 106/39 (61) 94 06/04/20 08:00 62 06/04/20 04:00 Venturi Mask 8.0 06/04/20 04:00 14.0 06/04/20 04:00 97.4 64 24 138/53 (81) 97 06/04/20 03:44 75 06/04/20 00:26 62 06/04/20 00:09 Venturi Mask 8.0 06/04/20 00:00 14.0 06/04/20 00:00 97.6 61 21 127/47 (73) 96 06/03/20 20:10 95 Venturi Mask 14.0 55 06/03/20 20:00 14.0 06/03/20 20:00 97.6 83 21 128/48 (74) 96 06/03/20 20:00 Venturi Mask 8.0 06/03/20 19:50 55 I&O Intake and Output 06/03/20 06/04/20 19:00 07:00 Intake Total 120 ml 150 ml Output Total 1000 ml 0 ml Balance -880 ml 150 ml Intake Oral 120 ml 150 ml Output Urine Total 1000 ml 0 ml # Voids 2 Dressing: saturated Cardiovascular: RSR Respiratory: decreased breath sounds Abdomen: soft, flat, non-tender, present bowel sounds, other Extremities: pulses, other Laboratory Tests Test 06/04/20 04:00 06/04/20 10:20 White Blood Count 4.1 K/UL (4.8-10.8) L Red Blood Count 2.68 M/UL (4.20-5.40) L Hemoglobin 8.6 G/DL (12.0-16.0) L Hematocrit 25.5 % (37.0-47.0) L Mean Corpuscular Volume 95 FL (80-99) Mean Corpuscular Hemoglobin 32.0 PG (27.0-31.0) H Mean Corpuscular Hemoglobin Concent 33.7 G/DL (32.0-36.0) Red Cell Distribution Width 16.4 % (11.6-14.8) H Platelet Count 168 K/UL (150-450) Mean Platelet Volume 6.9 FL (6.5-10.1) Neutrophils (%) (Auto) 56.2 % (45.0-75.0) Lymphocytes (%) (Auto) 33.5 % (20.0-45.0) Monocytes (%) (Auto) 7.5 % (1.0-10.0) Eosinophils (%) (Auto) 1.9 % (0.0-3.0) Basophils (%) (Auto) 0.9 % (0.0-2.0) Arterial Blood pH 7.507 (7.350-7.450) Arterial Blood Partial Pressure CO2 55.5 mmHg (35.0-45.0) *H Arterial Blood Partial Pressure O2 73.6 mmHg (75.0-100.0) L Arterial Blood HCO3 43.0 mmol/L (22.0-26.0) *H Arterial Blood Oxygen Saturation 94.2 % (95-100) L Arterial Blood Base Excess 17.7 (-2-2) *H Raphael Test Positive Plan Problems: (1) Anemia (2) Hypercapnic respiratory failure Assessment & Plan: respiratory insufficiency requiring prolonged ventilatory support unable to wean vent safely after multiple attempts discussed with pcp. discussed with pulm discussed with patient guardian. patient unable to consent. no nok or poa. given critical care and condition not recommended to await court decision which during pandemic can take long time. medically necessary to proceed with trach in patients best interest. 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
--- NOTE | 2020-06-04 17:57 | Psychiatric Progress Note ---
Psychiatry Progress Note Psychiatry Progress Note Subjective the pt has waxing and waning o consciousness on restraints episodes agitation confused Medications Current Medications Medications (Trade) Dose Ordered Sig/Angie Route PRN Reason Start Time Stop Time Status Last Admin Dose Admin Acetaminophen (Tylenol) 650 mg Q6H PRN NG Fever >100.5 05/14/20 21:00 06/13/20 20:59 05/14/20 21:10 Acetaminophen (Tylenol) 650 mg Q6H PRN NG Mild Pain (Pain Scale 1-3) 05/14/20 21:00 06/13/20 20:59 05/17/20 11:06 Acetazolamide (Diamox) 250 mg FOUR TIMES A DAY ORAL 06/04/20 13:30 07/04/20 13:29 06/04/20 17:47 Chlorhexidine Gluconate (Ruba-Hex 2%) 1 applic DAILY@1999 TOPIC 05/31/20 20:00 08/29/20 19:59 06/03/20 21:01 Clonidine HCl (Catapres Tab) 0.1 mg Q4H PRN ORAL sbp>170 05/11/20 17:15 08/09/20 17:14 Docusate Sodium (Colace) 100 mg TWICE A DAY ORAL 05/25/20 18:00 06/24/20 17:59 06/04/20 17:47 Furosemide (Lasix) 40 mg EVERY 12 HOURS IV 05/30/20 09:30 06/29/20 09:29 06/04/20 08:33 Haloperidol Lactate (Haldol) 5 mg Q6H PRN IM Agitation 05/13/20 20:45 06/27/20 20:44 05/28/20 02:40 Heparin Sodium (Porcine) (Heparin 5000 units/ml) 5,000 units EVERY 12 HOURS SUBQ 05/25/20 21:00 07/09/20 20:59 06/04/20 08:34 Levothyroxine Sodium (Synthroid) 50 mcg DAILY@0630 ORAL 05/14/20 06:30 06/13/20 06:29 06/04/20 05:53 Pantoprazole (Protonix) 40 mg Q12HR ORAL 05/26/20 21:00 06/25/20 20:59 06/04/20 08:33 Polyethylene Glycol (Miralax) 17 gm BEDTIME ORAL 05/25/20 21:00 06/24/20 20:59 06/03/20 21:02 Potassium Chloride (K-Dur) 40 meq DAILY ORAL 06/03/20 09:00 08/27/20 10:29 06/04/20 08:33 Quetiapine Fumarate (SEROqueL) 50 mg Q12HR ORAL 05/24/20 21:00 07/08/20 20:59 06/04/20 08:33 Neurological/Psychiatric: Denies: no symptoms, anxiety, depressed, emotional problems, headache, numbness, paresthesia, pre-existing deficit, seizure, tingling, tremors, weakness, other Allergies: Coded Allergies: LITHIUM (Verified Allergy, Unknown, 02/07/19) Objective Data Height (Feet): 5 Height (Inches): 3.00 Weight (Pounds): 183 General Appearance: no apparent distress, lethargic Additional Comments: waxing and waning consciousness. Disoriented. Mood is neutral to agitation. Affect is flat. Thought process, there is paucity of thought process. Thought content, no suicidal or homicidal ideation. Cognition is impaired. Insight and judgment is impaired. Assessment/Plan Liberty I: Liberty I Acute toxic encephalopathy. Schizophrenia. Liberty II Deferred. Liberty III COVID-19. Liberty IV Low. Liberty V 20 PLAN: 1. Discontinue the IV Haldol. 2. Start the patient on Haldol IM. 3. The patient benefits from bilateral soft restraints. 4. Provide the patient with reality orientation. 5. Discussed with the nurse. Status: progressing, unchanged, deteriorating Status Narrative Liberty I Acute toxic encephalopathy. Schizophrenia. Liberty II Deferred. Liberty III COVID-19. Liberty IV Low. Liberty V 20 PLAN: 1. Discontinue the IV Haldol. 2. Start the patient on Haldol IM. 3. The patient benefits from bilateral soft restraints. 4. Provide the patient with reality orientation. 5. Discussed with the nurse. Assessment/Plan: Liberty I Acute toxic encephalopathy. Schizophrenia. Liberty II Deferred. Liberty III COVID-19. Liberty IV Low. Liberty V 20 PLAN: 1. Discontinue the IV Haldol. 2. Start the patient on Haldol IM. 3. The patient benefits from bilateral soft restraints. 4. Provide the patient with reality orientation. 5. Discussed with the nurse. Kiana Hernandez MD Jun 04, 2020 17:57
[2020-06-04 20:00] VITALS: BP 144/54
--- NOTE | 2020-06-04 20:24 | General Progress Note ---
Subjective ROS Limited/Unobtainable: Yes Allergies: Coded Allergies: LITHIUM (Verified Allergy, Unknown, 02/07/19) Objective Last 24 Hour Vital Signs Date Time Temp Pulse Resp B/P (MAP) Pulse Ox O2 Delivery O2 Flow Rate FiO2 06/04/20 16:00 62 06/04/20 16:00 98.7 69 21 120/73 (89) 95 06/04/20 12:00 97.2 62 22 133/47 (75) 95 06/04/20 12:00 14.0 06/04/20 12:00 Venturi Mask 14.0 06/04/20 12:00 64 06/04/20 08:00 Venturi Mask 14.0 06/04/20 08:00 14.0 06/04/20 08:00 96.6 68 22 106/39 (61) 94 06/04/20 08:00 62 06/04/20 04:00 Venturi Mask 8.0 06/04/20 04:00 14.0 06/04/20 04:00 97.4 64 24 138/53 (81) 97 06/04/20 03:44 75 06/04/20 00:26 62 06/04/20 00:09 Venturi Mask 8.0 06/04/20 00:00 14.0 06/04/20 00:00 97.6 61 21 127/47 (73) 96 Intake and Output 06/03/20 06/04/20 18:59 06:59 Intake Total 120 ml 150 ml Output Total 1000 ml 0 ml Balance -880 ml 150 ml Intake Oral 120 ml 150 ml Output Urine Total 1000 ml 0 ml # Voids 2 Laboratory Tests 06/04/20 04:00: White Blood Count 4.1L, Red Blood Count 2.68L, Hemoglobin 8.6L, Hematocrit 25.5L , Mean Corpuscular Volume 95, Mean Corpuscular Hemoglobin 32.0H, Mean Corpuscular Hemoglobin Concent 33.7, Red Cell Distribution Width 16.4H, Platelet Count 168, Mean Platelet Volume 6.9, Neutrophils (%) (Auto) 56.2, Lymphocytes (%) (Auto) 33.5, Monocytes (%) (Auto) 7.5, Eosinophils (%) (Auto) 1.9, Basophils (%) (Auto) 0.9 12/23/20 10:20: Arterial Blood pH 7.507H, Arterial Blood Partial Pressure CO2 55.5*H, Arterial Blood Partial Pressure O2 73.6L, Arterial Blood HCO3 43.0*H, Arterial Blood Oxygen Saturation 94.2L, Arterial Blood Base Excess 17.7*H, Raphael Test Positive Height (Feet): 5 Height (Inches): 3.00 Weight (Pounds): 183 Assessment/Plan Problem List: (1) Anemia ICD Codes: D64.9 - Anemia, unspecified SNOMED: 862519116 (2) Hypercapnic respiratory failure ICD Codes: J96.92 - Respiratory failure, unspecified with hypercapnia SNOMED: 952885407 (3) COVID-19 ICD Codes: U07.1 - COVID-19 SNOMED: 201372505 (4) COPD (chronic obstructive pulmonary disease) ICD Codes: J44.9 - Chronic obstructive pulmonary disease, unspecified SNOMED: 21437018 (5) Psychosis ICD Codes: F29 - Unspecified psychosis not due to a substance or known physiological condition SNOMED: 51983342 (6) Hypoxia ICD Codes: R09.02 - Hypoxemia SNOMED: 754888108 (7) Renal failure (ARF), acute on chronic ICD Codes: N17.9 - Acute kidney failure, unspecified; N18.9 - Chronic kidney disease, unspecified SNOMED: 451938548 (8) CHF exacerbation ICD Codes: I50.9 - Heart failure, unspecified SNOMED: 613460928, [id number] Status: progressing, unchanged, deteriorating Assessment/Plan: pauses has hard nodule.consulted dr neal no acute events covid positive pna sepsis copd exac chf exac Dani Perera MD Jun 04, 2020 20:24
[2020-06-04] MEDS: Dyna-Hex 2% Top Sol 2oz TOPIC SCH (20:50)
[2020-06-04] MEDS: Miralax 17gm pkt ORAL SCH (20:51)
[2020-06-05] VITALS: BP 114/53
[2020-06-05 04:00] VITALS: BP 127/49
[2020-06-05 05:07] LABS: ALBUMIN 3.1 G/DL (3.4-5.0); ALBUMIN/GLOBULIN RATIO 0.8 (1.0-2.7); BILIRUBIN,TOTAL 1.9 MG/DL (0.2-1.0); CREATININE 1.1 MG/DL (0.55-1.30); POTASSIUM 3.1 MMOL/L (3.5-5.1)
[2020-06-05 05:38] LABS: BILIRUBIN,DIRECT 0.4 MG/DL (0.0-0.3)
[2020-06-05 05:46] LABS: PHOSPHORUS 3.2 MG/DL (2.5-4.9)
--- NOTE | 2020-06-05 06:26 | Hematology/Onc Progress Note ---
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 ( combination of moderate aortic regurgitation and severe mitral regurgitation) --> diuresis as per cards --> lasix last time # Severe ascending aortic dilatation --> per Dr Keke campbell # Hypertension # Parkinson disease # Hyperlipidemia # Hypothyroidism # Dementia # Obesity # Schizophrenia --> as per [facility] --> restraints # Dvt ppx heparin sq Appreciate instructional design consultant care and alexei Rn Subjective Constitutional: Denies: no symptoms, chills, fever, malaise, weakness, other HEENT: Denies: no symptoms, eye pain, blurred vision, tearing, double vision, ear pain, ear discharge, nose pain, nose congestion, throat pain, throat swelling, mouth pain, mouth swelling, other Cardiovascular: Denies: no symptoms, chest pain, edema, irregular heart rate, lightheadedness, palpitations, syncope, other Respiratory: Denies: no symptoms, cough, shortness of breath, SOB with excertion, SOB at rest, sputum, wheezing, other Neurologic/Psychiatric: Denies: no symptoms, anxiety, depressed, emotional problems, headache, numbness, paresthesia, pre-existing deficit, seizure, tingling, tremors, weakness, other Endocrine: Denies: no symptoms, excessive sweating, flushing, intolerance to cold, intolerance to heat, increased hunger, increased thirst, increased urine, unexplained weight gain, unexplained weight loss, other Hematologic/Lymphatic: Denies: no symptoms, anemia, easy bleeding, easy bruising, adenopathy, other Allergies: Coded Allergies: LITHIUM (Verified Allergy, Unknown, 02/07/19) Subjective 06/01 nonrebreather, 15L, some mild pain in back, chest, no night sweats 06/02 remains on nonrebreather, labs are noted, no bleeding or night sweats 06/03 labs reviewed, meds noted, nonrebreather, c02 was elevated, to inform pulm 06/04 labs reviewed, meds noted, on NR, no night sweats, meds noted 06/05 is on 15lnc venturi mask, is covid iso, labs noted Objective Objective Current Medications Medications (Trade) Dose Ordered Sig/Angie Route PRN Reason Start Time Stop Time Status Last Admin Dose Admin Acetaminophen (Tylenol) 650 mg Q6H PRN NG Fever >100.5 05/14/20 21:00 06/13/20 20:59 05/14/20 21:10 Acetaminophen (Tylenol) 650 mg Q6H PRN NG Mild Pain (Pain Scale 1-3) 05/14/20 21:00 06/13/20 20:59 05/17/20 11:06 Acetazolamide (Diamox) 250 mg FOUR TIMES A DAY ORAL 06/04/20 13:30 07/04/20 13:29 06/04/20 20:57 Chlorhexidine Gluconate (Ruba-Hex 2%) 1 applic DAILY@1999 TOPIC 05/31/20 20:00 08/29/20 19:59 06/04/20 20:50 Clonidine HCl (Catapres Tab) 0.1 mg Q4H PRN ORAL sbp>170 05/11/20 17:15 08/09/20 17:14 Docusate Sodium (Colace) 100 mg TWICE A DAY ORAL 05/25/20 18:00 06/24/20 17:59 06/04/20 17:47 Furosemide (Lasix) 40 mg EVERY 12 HOURS IV 05/30/20 09:30 06/29/20 09:29 06/04/20 20:50 Haloperidol Lactate (Haldol) 5 mg Q6H PRN IM Agitation 05/13/20 20:45 06/27/20 20:44 05/28/20 02:40 Heparin Sodium (Porcine) (Heparin 5000 units/ml) 5,000 units EVERY 12 HOURS SUBQ 05/25/20 21:00 07/09/20 20:59 06/04/20 20:53 Levothyroxine Sodium (Synthroid) 50 mcg DAILY@0630 ORAL 05/14/20 06:30 06/13/20 06:29 06/05/20 05:44 Pantoprazole (Protonix) 40 mg Q12HR ORAL 05/26/20 21:00 06/25/20 20:59 06/04/20 20:51 Polyethylene Glycol (Miralax) 17 gm BEDTIME ORAL 05/25/20 21:00 06/24/20 20:59 06/04/20 20:51 Potassium Chloride (K-Dur) 40 meq DAILY ORAL 06/03/20 09:00 08/27/20 10:29 06/04/20 08:33 Quetiapine Fumarate (SEROqueL) 50 mg Q12HR ORAL 05/24/20 21:00 07/08/20 20:59 06/04/20 20:51 Last 24 Hour Vital Signs Date Time Temp Pulse Resp B/P (MAP) Pulse Ox O2 Delivery O2 Flow Rate FiO2 06/05/20 04:00 69 06/05/20 00:00 62 06/05/20 00:00 98.2 68 24 114/53 (73) 100 06/04/20 22:45 95 Venturi Mask 14.0 55 06/04/20 21:00 Venturi Mask 15.0 06/04/20 20:00 56 06/04/20 20:00 98.6 69 24 144/54 (84) 100 06/04/20 16:00 62 06/04/20 16:00 98.7 69 21 120/73 (89) 95 06/04/20 12:00 97.2 62 22 133/47 (75) 95 06/04/20 12:00 14.0 06/04/20 12:00 Venturi Mask 14.0 06/04/20 12:00 64 06/04/20 08:00 Venturi Mask 14.0 06/04/20 08:00 14.0 06/04/20 08:00 96.6 68 22 106/39 (61) 94 06/04/20 08:00 62 06/04/20 04:00 Venturi Mask 8.0 06/04/20 04:00 14.0 06/04/20 04:00 97.4 64 24 138/53 (81) 97 06/04/20 03:44 75 06/04/20 00:26 62 06/04/20 00:09 Venturi Mask 8.0 06/04/20 00:00 14.0 06/04/20 00:00 97.6 61 21 127/47 (73) 96 06/03/20 20:10 95 Venturi Mask 14.0 55 06/03/20 20:00 14.0 06/03/20 20:00 97.6 83 21 128/48 (74) 96 06/03/20 20:00 Venturi Mask 8.0 06/03/20 19:50 55 06/03/20 16:00 41 06/03/20 16:00 Venturi Mask 8.0 06/03/20 16:00 96.8 64 20 121/47 (71) 95 06/03/20 16:00 14.0 06/03/20 12:12 96.8 69 20 101/45 (63) 95 06/03/20 12:11 14.0 06/03/20 12:00 61 06/03/20 11:46 Venturi Mask 8.0 06/03/20 08:00 14.0 06/03/20 08:00 63 06/03/20 08:00 96.4 71 20 117/47 (70) 94 06/03/20 08:00 Venturi Mask 8.0 Intake and Output 06/04/20 06/05/20 19:00 07:00 Intake Total 440 ml Balance 440 ml Intake Oral 440 ml # Voids 2 # Bowel Movements 1 Labs Test 06/03/20 04:30 06/03/20 09:38 06/04/20 04:00 06/04/20 10:20 White Blood Count 4.0 K/UL (4.8-10.8) 4.1 K/UL (4.8-10.8) Red Blood Count 2.82 M/UL (4.20-5.40) 2.68 M/UL (4.20-5.40) Hemoglobin 8.9 G/DL (12.0-16.0) 8.6 G/DL (12.0-16.0) Hematocrit 25.7 % (37.0-47.0) 25.5 % (37.0-47.0) Mean Corpuscular Volume 91 FL (80-99) 95 FL (80-99) Mean Corpuscular Hemoglobin 31.7 PG (27.0-31.0) 32.0 PG (27.0-31.0) Mean Corpuscular Hemoglobin Concent 34.9 G/DL (32.0-36.0) 33.7 G/DL (32.0-36.0) Red Cell Distribution Width 17.5 % (11.6-14.8) 16.4 % (11.6-14.8) Platelet Count 165 K/UL (150-450) 168 K/UL (150-450) Mean Platelet Volume 6.9 FL (6.5-10.1) 6.9 FL (6.5-10.1) Neutrophils (%) (Auto) 59.8 % (45.0-75.0) 56.2 % (45.0-75.0) Lymphocytes (%) (Auto) 31.2 % (20.0-45.0) 33.5 % (20.0-45.0) Monocytes (%) (Auto) 6.9 % (1.0-10.0) 7.5 % (1.0-10.0) Eosinophils (%) (Auto) 1.1 % (0.0-3.0) 1.9 % (0.0-3.0) Basophils (%) (Auto) 1.1 % (0.0-2.0) 0.9 % (0.0-2.0) Sodium Level 144 MMOL/L (136-145) Potassium Level 3.4 MMOL/L (3.5-5.1) Chloride Level 102 MMOL/L (98-107) Carbon Dioxide Level 43 MMOL/L (21-32) Anion Gap -1 mmol/L (5-15) Blood Urea Nitrogen 15 mg/dL (7-18) Creatinine 0.9 MG/DL (0.55-1.30) Estimat Glomerular Filtration Rate > 60 mL/min (>60) Glucose Level 85 MG/DL (74-106) Calcium Level 8.2 MG/DL (8.5-10.1) Phosphorus Level 3.3 MG/DL (2.5-4.9) Magnesium Level 1.8 MG/DL (1.8-2.4) Total Bilirubin 1.7 MG/DL (0.2-1.0) Direct Bilirubin 0.3 MG/DL (0.0-0.3) Aspartate Amino Transf (AST/SGOT) 13 U/L (15-37) Alanine Aminotransferase (ALT/SGPT) 11 U/L (12-78) Alkaline Phosphatase 48 U/L (46-116) Total Protein 6.8 G/DL (6.4-8.2) Albumin 2.8 G/DL (3.4-5.0) Globulin 4.0 g/dL Albumin/Globulin Ratio 0.7 (1.0-2.7) Arterial Blood pH 7.518 (7.350-7.450) 7.507 (7.350-7.450) Arterial Blood Partial Pressure CO2 53.7 mmHg (35.0-45.0) 55.5 mmHg (35.0-45.0) Arterial Blood Partial Pressure O2 37.2 mmHg (75.0-100.0) 73.6 mmHg (75.0-100.0) Arterial Blood HCO3 42.7 mmol/L (22.0-26.0) 43.0 mmol/L (22.0-26.0) Arterial Blood Oxygen Saturation 74.2 % (95-100) 94.2 % (95-100) Arterial Blood Base Excess 17.6 (-2-2) 17.7 (-2-2) Raphael Test Positive Positive Test 06/05/20 04:00 Sodium Level 143 MMOL/L (136-145) Potassium Level 3.1 MMOL/L (3.5-5.1) Chloride Level 100 MMOL/L (98-107) Carbon Dioxide Level 42 MMOL/L (21-32) Anion Gap 2 mmol/L (5-15) Blood Urea Nitrogen 25 mg/dL (7-18) Creatinine 1.1 MG/DL (0.55-1.30) Estimat Glomerular Filtration Rate 47.8 mL/min (>60) Glucose Level 84 MG/DL (74-106) Calcium Level 9.0 MG/DL (8.5-10.1) Phosphorus Level 3.2 MG/DL (2.5-4.9) Magnesium Level 2.0 MG/DL (1.8-2.4) Total Bilirubin 1.9 MG/DL (0.2-1.0) Direct Bilirubin 0.4 MG/DL (0.0-0.3) Aspartate Amino Transf (AST/SGOT) 10 U/L (15-37) Alanine Aminotransferase (ALT/SGPT) 11 U/L (12-78) Alkaline Phosphatase 50 U/L (46-116) C-Reactive Protein, Quantitative 1.7 mg/dL (0.00-0.90) Pro-B-Type Natriuretic Peptide 1781 pg/mL (0-125) Total Protein 7.1 G/DL (6.4-8.2) Albumin 3.1 G/DL (3.4-5.0) Globulin 4.0 g/dL Albumin/Globulin Ratio 0.8 (1.0-2.7) Height (Feet): 5 Height (Inches): 3.00 Weight (Pounds): 183 Objective Physical Exam: Vitals: reviewed General: NAD HEENT: nc, at Neck: supple Chest: decreased breath sounds bilaterally, crackles+++ 15L NRM Cardiovascular: RRR, no s3, s4 Abdomen: soft, nontender, nd Extremities: 1-2 + edema Neuro: nonverbal Frank Escobar MD Jun 05, 2020 06:26
[2020-06-05 06:57] LABS: BASOPHILS % (AUTO) 0.9 % (0.0-2.0); EOSINOPHILS % (AUTO) 1.5 % (0.0-3.0); HEMATOCRIT 29.3 % (37.0-47.0); HEMOGLOBIN 9.5 G/DL (12.0-16.0); MEAN CORPUSCULAR VOLUME 101 FL (80-99); MONOCYTES % (AUTO) 5.9 % (1.0-10.0); NEUTROPHILS % (AUTO) 63.7 % (45.0-75.0); PLATELET COUNT 188 K/UL (150-450); RED BLOOD COUNT 2.91 M/UL (4.20-5.40); RED CELL DISTRIBUTION WIDTH 16.7 % (11.6-14.8); WHITE BLOOD COUNT 5.3 K/UL (4.8-10.8)
[2020-06-05 08:00] VITALS: BP 111/55
[2020-06-05] MEDS: Docusate 100mg/10ml Liq ORAL SCH ×2 (08:53→18:24)
[2020-06-05] MEDS: Heparin 5000 units/ml inj SUBQ SCH ×2 (08:55→21:55)
[2020-06-05 12:00] VITALS: BP 113/39
--- NOTE | 2020-06-05 12:29 | Cardiac Electrophysiology PN ---
Assessment/Plan Assessment/Plan 1. Covid PNA and respiratory failure. S/P Remdesevir and Dexamethasone Self extubated on 14 liter venturi Mask Off Abx per ID. On Lasix [address] Myers 2. SSS with 8 pauses of more than 3 seconds including 9 and 10 second pauses off any QUEZADA or AVN blockers. Will need pacer consent from conservator/court and ID clearance 3. Hypotension. Off Dopamine.Tolerating Lasix. EF 55% 4. Schizophrenia and psychosis. 5. S/P MRSA & Klebsiella pneumonia treated DW RN Subjective Subjective Self extubated on 05/22/20 in Covid isolation S/P Left arm PICC line placement as has no iv access. Had multiple pauses of more than 3 seconds including a 4s and 7s and a 10 second pause at 1 AM on 05/31 Had pauses of 7, 8 and 6 seconds again 06/01/20 Conservator deferred authorization for PPM to court. Has positive blood Cx and ID clearance also pending pre pacer implant On 15 liter NRBFM Objective Last 24 Hour Vital Signs Date Time Temp Pulse Resp B/P (MAP) Pulse Ox O2 Delivery O2 Flow Rate FiO2 06/05/20 12:00 96.6 58 18 113/39 (63) 99 06/05/20 09:00 Venturi Mask 15.0 06/05/20 08:00 66 06/05/20 08:00 97.9 60 18 111/55 (73) 99 06/05/20 04:00 98.5 67 24 127/49 (75) 100 06/05/20 04:00 69 06/05/20 00:00 62 06/05/20 00:00 98.2 68 24 114/53 (73) 100 06/04/20 22:45 95 Venturi Mask 14.0 55 06/04/20 21:00 Venturi Mask 15.0 06/04/20 20:00 56 06/04/20 20:00 98.6 69 24 144/54 (84) 100 06/04/20 16:00 62 06/04/20 16:00 98.7 69 21 120/73 (89) 95 Intake and Output 06/04/20 06/05/20 19:00 07:00 Intake Total 440 ml 100 ml Balance 440 ml 100 ml Intake Oral 440 ml 100 ml # Voids 2 1 # Bowel Movements 1 Laboratory Tests Test 06/05/20 04:00 White Blood Count 5.3 K/UL (4.8-10.8) Red Blood Count 2.91 M/UL (4.20-5.40) L Hemoglobin 9.5 G/DL (12.0-16.0) L Hematocrit 29.3 % (37.0-47.0) L Mean Corpuscular Volume 101 FL (80-99) H Mean Corpuscular Hemoglobin 32.7 PG (27.0-31.0) H Mean Corpuscular Hemoglobin Concent 32.5 G/DL (32.0-36.0) Red Cell Distribution Width 16.7 % (11.6-14.8) H Platelet Count 188 K/UL (150-450) Mean Platelet Volume 6.8 FL (6.5-10.1) Neutrophils (%) (Auto) 63.7 % (45.0-75.0) Lymphocytes (%) (Auto) 28.0 % (20.0-45.0) Monocytes (%) (Auto) 5.9 % (1.0-10.0) Eosinophils (%) (Auto) 1.5 % (0.0-3.0) Basophils (%) (Auto) 0.9 % (0.0-2.0) Erythrocyte Sedimentation Rate 110 MM/HR (0-30) H Sodium Level 143 MMOL/L (136-145) Potassium Level 3.1 MMOL/L (3.5-5.1) L Chloride Level 100 MMOL/L (98-107) Carbon Dioxide Level 42 MMOL/L (21-32) *H Anion Gap 2 mmol/L (5-15) L Blood Urea Nitrogen 25 mg/dL (7-18) H Creatinine 1.1 MG/DL (0.55-1.30) Estimat Glomerular Filtration Rate 47.8 mL/min (>60) Glucose Level 84 MG/DL (74-106) Calcium Level 9.0 MG/DL (8.5-10.1) Phosphorus Level 3.2 MG/DL (2.5-4.9) Magnesium Level 2.0 MG/DL (1.8-2.4) Total Bilirubin 1.9 MG/DL (0.2-1.0) H Direct Bilirubin 0.4 MG/DL (0.0-0.3) H Aspartate Amino Transf (AST/SGOT) 10 U/L (15-37) L Alanine Aminotransferase (ALT/SGPT) 11 U/L (12-78) L Alkaline Phosphatase 50 U/L (46-116) C-Reactive Protein, Quantitative 1.7 mg/dL (0.00-0.90) H Pro-B-Type Natriuretic Peptide 1781 pg/mL (0-125) H Total Protein 7.1 G/DL (6.4-8.2) Albumin 3.1 G/DL (3.4-5.0) L Globulin 4.0 g/dL Albumin/Globulin Ratio 0.8 (1.0-2.7) L Microbiology Date/Time Source Procedure Growth Status 06/02/20 14:00 Nasopharynx Coronavirus COVID-19 PCR ([facility]) - Final Complete Objective HEAD AND NECK: Positive JVD. LUNGS: Decreased breath sounds. CARDIOVASCULAR: Regular S1 and S2 with no gallop. ABDOMEN: Obese. EXTREMITIES: Bilateral 2+ pitting edema. Cameron Davies MD Jun 05, 2020 12:29
--- NOTE | 2020-06-05 12:37 | Pulmonology Progress Note ---
Subjective ROS Limited/Unobtainable: Yes Interval Events: none major reported per nursing Constitutional: Denies: fever HEENT: Repors: no symptoms Respiratory: Reports: no symptoms Cardiovascular: Reports: no symptoms Gastrointestinal/Abdominal: Reports: no symptoms Genitourinary: Reports: no symptoms Allergies: Coded Allergies: LITHIUM (Verified Allergy, Unknown, 02/07/19) Objective Last 24 Hour Vital Signs Date Time Temp Pulse Resp B/P (MAP) Pulse Ox O2 Delivery O2 Flow Rate FiO2 06/05/20 12:00 96.6 58 18 113/39 (63) 99 06/05/20 09:00 Venturi Mask 15.0 06/05/20 08:00 66 06/05/20 08:00 97.9 60 18 111/55 (73) 99 06/05/20 04:00 98.5 67 24 127/49 (75) 100 06/05/20 04:00 69 06/05/20 00:00 62 06/05/20 00:00 98.2 68 24 114/53 (73) 100 06/04/20 22:45 95 Venturi Mask 14.0 55 06/04/20 21:00 Venturi Mask 15.0 06/04/20 20:00 56 06/04/20 20:00 98.6 69 24 144/54 (84) 100 06/04/20 16:00 62 06/04/20 16:00 98.7 69 21 120/73 (89) 95 Intake and Output 06/04/20 06/05/20 19:00 07:00 Intake Total 440 ml 100 ml Balance 440 ml 100 ml Intake Oral 440 ml 100 ml # Voids 2 1 # Bowel Movements 1 Objective 06/05 now on 14L Ventimask saturating at high 90s 05/31 on Venturi mask saturating well 05/29/2020 now on 2 lpm NC saturating at 97%; in transfusion 05/28/2020 in SDU; currently on Venturi mask 14L FiO2 14L saturating well 05/27/2020 in SDU; s/p failed attempt at switching to NC due to patient noncompliance; currently saturating low-mid 90s when she is actually on Venturi mask 14L 05/26/2020 in SDU; keeps taking off her NRB and desats to 79-80% 05/24/2020 in ICUD; restless, saturating ok with NC 05/19/2020 Pt in ICU; full code General Appearance: no acute distress HEENT: normocephalic Respiratory: no respiratory distress, decreased breath sounds Cardiovascular: normal rate Abdomen: soft, non tender, other - obese, NG tube Extremities: other - b/l 2+ pitting edema Neurologic: disoriented Microbiology Date/Time Source Procedure Growth Status 06/02/20 14:00 Nasopharynx Coronavirus COVID-19 PCR ([facility]) - Final Complete Laboratory Tests 06/05/20 04:00: White Blood Count 5.3, Red Blood Count 2.91L, Hemoglobin 9.5L, Hematocrit 29.3L, Mean Corpuscular Volume 101H, Mean Corpuscular Hemoglobin 32.7H, Mean Corpuscular Hemoglobin Concent 32.5, Red Cell Distribution Width 16.7H, Platelet Count 188, Mean Platelet Volume 6.8, Neutrophils (%) (Auto) 63.7, Lymphocytes (%) (Auto) 28.0, Monocytes (%) (Auto) 5.9, Eosinophils (%) (Auto) 1.5, Basophils (%) (Auto) 0.9, Erythrocyte Sedimentation Rate 110H, Sodium Level 143, Potassium Level 3.1L, Chloride Level 100, Carbon Dioxide Level 42*H, Anion Gap 2L, Blood Urea Nitrogen 25H, Creatinine 1.1, Estimat Glomerular Filtration Rate 47.8, Glucose Level 84, Calcium Level 9.0, Phosphorus Level 3.2, Magnesium Level 2.0, Total Bilirubin 1.9H, Direct Bilirubin 0.4H, Aspartate Amino Transf (AST/SGOT) 10L, Alanine Aminotransferase (ALT/SGPT) 11L, Alkaline Phosphatase 50, C- Reactive Protein, Quantitative 1.7H, Pro-B-Type Natriuretic Peptide 1781H, Total Protein 7.1, Albumin 3.1L, Globulin 4.0, Albumin/Globulin Ratio 0.8L Current Medications Medications (Trade) Dose Ordered Sig/Angie Route PRN Reason Start Time Stop Time Status Last Admin Dose Admin Acetaminophen (Tylenol) 650 mg Q6H PRN NG Fever >100.5 05/14/20 21:00 06/13/20 20:59 05/14/20 21:10 Acetaminophen (Tylenol) 650 mg Q6H PRN NG Mild Pain (Pain Scale 1-3) 05/14/20 21:00 06/13/20 20:59 05/17/20 11:06 Acetazolamide (Diamox) 250 mg FOUR TIMES A DAY ORAL 06/04/20 13:30 07/04/20 13:29 06/05/20 08:53 Chlorhexidine Gluconate (Ruba-Hex 2%) 1 applic DAILY@2000 TOPIC 05/31/20 20:00 08/29/20 19:59 06/04/20 20:50 Clonidine HCl (Catapres Tab) 0.1 mg Q4H PRN ORAL sbp>170 05/11/20 17:15 08/09/20 17:14 Docusate Sodium (Colace) 100 mg TWICE A DAY ORAL 06/05/20 09:00 07/05/20 08:59 06/05/20 08:53 Furosemide (Lasix) 40 mg EVERY 12 HOURS IV 05/30/20 09:30 06/29/20 09:29 06/05/20 08:54 Haloperidol Lactate (Haldol) 5 mg Q6H PRN IM Agitation 05/13/20 20:45 06/27/20 20:44 05/28/20 02:40 Heparin Sodium (Porcine) (Heparin 5000 units/ml) 5,000 units EVERY 12 HOURS SUBQ 05/25/20 21:00 07/09/20 20:59 06/05/20 08:55 Lansoprazole (Prevacid) 30 mg BID ORAL 06/05/20 18:00 07/05/20 17:59 Levothyroxine Sodium (Synthroid) 50 mcg DAILY@0630 ORAL 05/14/20 06:30 06/13/20 06:29 06/05/20 05:44 Polyethylene Glycol (Miralax) 17 gm BEDTIME ORAL 05/25/20 21:00 06/24/20 20:59 06/04/20 20:51 Potassium Chloride 100 ml @ 50 mls/hr Q2H IVPB 06/05/20 10:30 06/05/20 14:29 06/05/20 11:39 Quetiapine Fumarate (SEROqueL) 50 mg Q12HR ORAL 05/24/20 21:00 07/08/20 20:59 06/05/20 08:53 Assessment/Plan Assessment/Plan 1. Bilateral COVID-19 multilobar pneumonia. - s/p ETT - Afebrile - s/p Azithromycin, Ceftriaxone, dexamethasone - s/p remdesivir - CXR 05/31 Patchy bilateral airspace consolidations, consistent with multifocal infiltrate, similar in appearance to previous study from 05/30; Stable, small bilateral pleural effusions. - COVID-19 PCR 06/02 inconclusive result 2. Hx of COPD. 3. Schizophrenia/psychosis - On haloperidol per Dr. Hernandez; refusing all PO medications 4. Hypoxia. -Now on 14L/min via Ventimask; ABG better; saturating better - Latest CXR (05/31) unchanged - on Lasix 40 mg IV BID; also on Diamox - recommend continues diuresis with ongoing BUN/Cr monitoring 5. Anemia DVT ppx The care for this patient was discussed with my supervising physician Time spent for this case was approximately 31 minutes The patient was seen and examined at bedside and all new and available data was reviewed in the patients chart. I agree with the above findings, impression, and plan. (Patient was seen earlier today. Signature timestamp does not reflect patient encounter time) Trae Arriaga MD Jun 05, 2020 12:37 Sincere Myers MD Jun 05, 2020 13:43
--- NOTE | 2020-06-05 12:55 | Nephrology Progress Note ---
Assessment/Plan Problem List: (1) Renal failure (ARF), acute on chronic (2) Hypercapnic respiratory failure (3) CHF exacerbation (4) Anemia Assessment Azotemia/renal failure Acute respiratory failure most likely secondary to CHF, on mechanical ventilation History of COPD Hypertension Hyperlipemia Schizophrenia/psychosis Plan June 05: Lethargic. On Venturi mask. Labs reviewed. Returning bicarb. Continue to monitor ABG and electrolytes. Low potassium addressed. June 04: Remains on Venturi mask. No can panel done today. ABG results reviewed. Continue per pulmonary. June 03: Poor respiratory status. ABG noted. Patient hypoxic. Renal parameters somewhat stable. Continue per pulmonary. June 02: Labs reviewed. Low phosphorus replaced. Patient has periodic severe bradycardia. Continue per cardiology. June 01: Labs reviewed. Low magnesium replaced. Renal parameters stable. Hemoglobin level reasonable. Continue per consultants. May 31: Labs reviewed. Abnormal electrolytes at rest. Hemoglobin higher. Discussed with DARREL Cooper. Continue per consultants. May 30: Lab reviewed. Potassium and phosphorus replaced. Hemoglobin higher after transfusion. Continue per consultants. May 29: Lab reviewed. Patient anemic. Electrolyte abnormalities reviewed and addressed. Continue per consultants. Remains stable from renal standpoint of view. May 28: Patient was not transfused despite of my order since yesterday. Will defer transfusion to PMD/technical associate. Patient remains stable from renal standpoint of view. Continue per consultants. Discussed with Marlene nursing charge in [place]. May 27: Remains on Venturi mask. Labs reviewed. Abnormal electrolytes addressed. Hemoglobin low. Will transfuse 1 unit of packed RBCs today May 26: On Venturi mask. Labs reviewed. Abnormal electrolytes addressed. Continue per consultants and pulmonary support. May 25: On Venturi mask. Lethargic. No labs drawn today. Will monitor renal parameters. Per orders. May 24: Remains extubated. Will start on diet with high alert for possible aspiration. Continue to monitor renal parameters. May 23: Continues to be extubated. On nonrebreathing mask. Labs reviewed. Renal parameters stable. Discussed with RN. Continue per current management. May 22: Now extubated on nonrebreathing mask. Labs reviewed. Renal parameters stable. Abnormal electrolytes addressed. Discussed with RN. May 21: Remains intubated. Labs reviewed. Abnormal electrolytes addressed. Discussed with RN. May 20: Remains intubated. Abnormal electrolyte noted on today's lab results and addressed. Continue per consultants. May 19: Patient remains intubated. Labs reviewed. Abnormal electrolytes addressed. Continue per current management. May 18: Patient seen in ICU. Remains intubated. Weaning is being tried. Discussed with RN. Labs reviewed. Abnormal electrolyte addressed. Continue per consultants. May 17: Labs reviewed. Remains intubated. Stable from renal standpoint of view. Continue weaning. Discussed with RN. May 16: Labs reviewed. Remains intubated. Remains full code. Stable from renal standpoint of view. Abnormal electrolytes addressed. May 15: Labs reviewed. Renal parameters stable. Discussed with RN. Patient remains intubated on ventilator and full code. Continue per consultants. May 14: Labs reviewed. Discussed with RN. Abnormal electrolyte addressed. Continue per current management. Patient seen in ICU. Discussed with RN. Today's labs pending. Patient remains on 6 mics of dopamine. Pulmonary support Monitor intake and output Monitor electrolytes Continue per consultants Per orders Subjective ROS Limited/Unobtainable: No Constitutional: Reports: malaise, weakness Objective Objective Last 24 Hour Vital Signs Date Time Temp Pulse Resp B/P (MAP) Pulse Ox O2 Delivery O2 Flow Rate FiO2 06/05/20 12:00 96.6 58 18 113/39 (63) 99 06/05/20 09:00 Venturi Mask 15.0 06/05/20 08:00 66 06/05/20 08:00 97.9 60 18 111/55 (73) 99 06/05/20 04:00 98.5 67 24 127/49 (75) 100 06/05/20 04:00 69 06/05/20 00:00 62 06/05/20 00:00 98.2 68 24 114/53 (73) 100 06/04/20 22:45 95 Venturi Mask 14.0 55 06/04/20 21:00 Venturi Mask 15.0 06/04/20 20:00 56 06/04/20 20:00 98.6 69 24 144/54 (84) 100 06/04/20 16:00 62 06/04/20 16:00 98.7 69 21 120/73 (89) 95 Intake and Output 06/04/20 06/05/20 19:00 07:00 Intake Total 440 ml 100 ml Balance 440 ml 100 ml Intake Oral 440 ml 100 ml # Voids 2 1 # Bowel Movements 1 Laboratory Tests 06/05/20 04:00: White Blood Count 5.3, Red Blood Count 2.91L, Hemoglobin 9.5L, Hematocrit 29.3L, Mean Corpuscular Volume 101H, Mean Corpuscular Hemoglobin 32.7H, Mean Corpuscul ar Hemoglobin Concent 32.5, Red Cell Distribution Width 16.7H, Platelet Count 188, Mean Platelet Volume 6.8, Neutrophils (%) (Auto) 63.7, Lymphocytes (%) (Auto) 28.0, Monocytes (%) (Auto) 5.9, Eosinophils (%) (Auto) 1.5, Basophils (%) (Auto) 0.9, Erythrocyte Sedimentation Rate 110H, Sodium Level 143, Potassium Level 3.1L, Chloride Level 100, Carbon Dioxide Level 42*H, Anion Gap 2L, Blood Urea Nitrogen 25H, Creatinine 1.1, Estimat Glomerular Filtration Rate 47.8, Glucose Level 84, Calcium Level 9.0, Phosphorus Level 3.2, Magnesium Level 2.0, Total Bilirubin 1.9H, Direct Bilirubin 0.4H, Aspartate Amino Transf (AST/SGOT) 10L, Alanine Aminotransferase (ALT/SGPT) 11L, Alkaline Phosphatase 50, C- Reactive Protein, Quantitative 1.7H, Pro-B-Type Natriuretic Peptide 1781H, Total Protein 7.1, Albumin 3.1L, Globulin 4.0, Albumin/Globulin Ratio 0.8L Height (Feet): 5 Height (Inches): 3.00 Weight (Pounds): 183 General Appearance: lethargic EENT: other - On Venturi mask Cardiovascular: bradycardia Respiratory/Chest: decreased breath sounds Abdomen: distended Bryan Ochoa MD Jun 05, 2020 12:55
--- NOTE | 2020-06-05 13:10 | General Progress Note ---
Subjective ROS Limited/Unobtainable: Yes Allergies: Coded Allergies: LITHIUM (Verified Allergy, Unknown, 02/07/19) Objective Last 24 Hour Vital Signs Date Time Temp Pulse Resp B/P (MAP) Pulse Ox O2 Delivery O2 Flow Rate FiO2 06/05/20 12:00 96.6 58 18 113/39 (63) 99 06/05/20 09:00 Venturi Mask 15.0 06/05/20 08:00 66 06/05/20 08:00 97.9 60 18 111/55 (73) 99 06/05/20 04:00 98.5 67 24 127/49 (75) 100 06/05/20 04:00 69 06/05/20 00:00 62 06/05/20 00:00 98.2 68 24 114/53 (73) 100 06/04/20 22:45 95 Venturi Mask 14.0 55 06/04/20 21:00 Venturi Mask 15.0 06/04/20 20:00 56 06/04/20 20:00 98.6 69 24 144/54 (84) 100 06/04/20 16:00 62 06/04/20 16:00 98.7 69 21 120/73 (89) 95 Intake and Output 06/04/20 06/05/20 18:59 06:59 Intake Total 440 ml 100 ml Balance 440 ml 100 ml Intake Oral 440 ml 100 ml # Voids 2 1 # Bowel Movements 1 Laboratory Tests 06/05/20 04:00: White Blood Count 5.3, Red Blood Count 2.91L, Hemoglobin 9.5L, Hematocrit 29.3L, Mean Corpuscular Volume 101H, Mean Corpuscular Hemoglobin 32.7H, Mean Corpu scular Hemoglobin Concent 32.5, Red Cell Distribution Width 16.7H, Platelet Count 188, Mean Platelet Volume 6.8, Neutrophils (%) (Auto) 63.7, Lymphocytes (%) (Auto) 28.0, Monocytes (%) (Auto) 5.9, Eosinophils (%) (Auto) 1.5, Basophils (%) (Auto) 0.9, Erythrocyte Sedimentation Rate 110H, Sodium Level 143, Potassium Level 3.1L, Chloride Level 100, Carbon Dioxide Level 42*H, Anion Gap 2L, Blood U sherri Nitrogen 25H, Creatinine 1.1, Estimat Glomerular Filtration Rate 47.8, Glucose Level 84, Calcium Level 9.0, Phosphorus Level 3.2, Magnesium Level 2.0, Total Bilirubin 1.9H, Direct Bilirubin 0.4H, Aspartate Amino Transf (AST/SGOT) 10L, Alanine Aminotransferase (ALT/SGPT) 11L, Alkaline Phosphatase 50, C- Reactive Protein, Quantitative 1.7H, Pro-B-Type Natriuretic Peptide 1781H, Total Protein 7.1, Albumin 3.1L, Globulin 4.0, Albumin/Globulin Ratio 0.8L Height (Feet): 5 Height (Inches): 3.00 Weight (Pounds): 183 Assessment/Plan Problem List: (1) Anemia ICD Codes: D64.9 - Anemia, unspecified SNOMED: 795461609 (2) Hypercapnic respiratory failure ICD Codes: J96.92 - Respiratory failure, unspecified with hypercapnia SNOMED: 167540820 (3) COVID-19 ICD Codes: U07.1 - COVID-19 SNOMED: 185493223 (4) COPD (chronic obstructive pulmonary disease) ICD Codes: J44.9 - Chronic obstructive pulmonary disease, unspecified SNOMED: 79130884 (5) Psychosis ICD Codes: F29 - Unspecified psychosis not due to a substance or known physiological condition SNOMED: 67248495 (6) Hypoxia ICD Codes: R09.02 - Hypoxemia SNOMED: 679529528 (7) Renal failure (ARF), acute on chronic ICD Codes: N17.9 - Acute kidney failure, unspecified; N18.9 - Chronic kidney disease, unspecified SNOMED: 284917513 (8) CHF exacerbation ICD Codes: I50.9 - Heart failure, unspecified SNOMED: 936407278, [id number] Status: progressing, unchanged, deteriorating Assessment/Plan: obesity psychiatric patient malnutrition tendency to refuse care covid positive pna sepsis copd exac chf exac Dani Perera MD Jun 05, 2020 13:10
--- NOTE | 2020-06-05 14:00 | Surgery Progress Note ---
Surgery Progress Note Subjective Additional Comments right arm mass noted seems like small residual hematoma from prior IV line vs infiltration no bleeding no signs of infection no pain will monitor Objective Last 24 Hour Vital Signs Date Time Temp Pulse Resp B/P (MAP) Pulse Ox O2 Delivery O2 Flow Rate FiO2 06/05/20 12:00 96.6 58 18 113/39 (63) 99 06/05/20 12:00 62 06/05/20 09:00 Venturi Mask 15.0 06/05/20 08:00 66 06/05/20 08:00 97.9 60 18 111/55 (73) 99 06/05/20 04:00 98.5 67 24 127/49 (75) 100 06/05/20 04:00 69 06/05/20 00:00 62 06/05/20 00:00 98.2 68 24 114/53 (73) 100 06/04/20 22:45 95 Venturi Mask 14.0 55 06/04/20 21:00 Venturi Mask 15.0 06/04/20 20:00 56 06/04/20 20:00 98.6 69 24 144/54 (84) 100 06/04/20 16:00 62 06/04/20 16:00 98.7 69 21 120/73 (89) 95 I&O Intake and Output 06/04/20 06/05/20 19:00 07:00 Intake Total 440 ml 100 ml Balance 440 ml 100 ml Intake Oral 440 ml 100 ml # Voids 2 1 # Bowel Movements 1 Dressing: dry Wound: clean Cardiovascular: RSR Respiratory: clear, decreased breath sounds Abdomen: soft, non-tender, present bowel sounds Extremities: no edema, no tenderness, no cyanosis, other Laboratory Tests Test 06/05/20 04:00 White Blood Count 5.3 K/UL (4.8-10.8) Red Blood Count 2.91 M/UL (4.20-5.40) L Hemoglobin 9.5 G/DL (12.0-16.0) L Hematocrit 29.3 % (37.0-47.0) L Mean Corpuscular Volume 101 FL (80-99) H Mean Corpuscular Hemoglobin 32.7 PG (27.0-31.0) H Mean Corpuscular Hemoglobin Concent 32.5 G/DL (32.0-36.0) Red Cell Distribution Width 16.7 % (11.6-14.8) H Platelet Count 188 K/UL (150-450) Mean Platelet Volume 6.8 FL (6.5-10.1) Neutrophils (%) (Auto) 63.7 % (45.0-75.0) Lymphocytes (%) (Auto) 28.0 % (20.0-45.0) Monocytes (%) (Auto) 5.9 % (1.0-10.0) Eosinophils (%) (Auto) 1.5 % (0.0-3.0) Basophils (%) (Auto) 0.9 % (0.0-2.0) Erythrocyte Sedimentation Rate 110 MM/HR (0-30) H Sodium Level 143 MMOL/L (136-145) Potassium Level 3.1 MMOL/L (3.5-5.1) L Chloride Level 100 MMOL/L (98-107) Carbon Dioxide Level 42 MMOL/L (21-32) *H Anion Gap 2 mmol/L (5-15) L Blood Urea Nitrogen 25 mg/dL (7-18) H Creatinine 1.1 MG/DL (0.55-1.30) Estimat Glomerular Filtration Rate 47.8 mL/min (>60) Glucose Level 84 MG/DL (74-106) Calcium Level 9.0 MG/DL (8.5-10.1) Phosphorus Level 3.2 MG/DL (2.5-4.9) Magnesium Level 2.0 MG/DL (1.8-2.4) Total Bilirubin 1.9 MG/DL (0.2-1.0) H Direct Bilirubin 0.4 MG/DL (0.0-0.3) H Aspartate Amino Transf (AST/SGOT) 10 U/L (15-37) L Alanine Aminotransferase (ALT/SGPT) 11 U/L (12-78) L Alkaline Phosphatase 50 U/L (46-116) C-Reactive Protein, Quantitative 1.7 mg/dL (0.00-0.90) H Pro-B-Type Natriuretic Peptide 1781 pg/mL (0-125) H Total Protein 7.1 G/DL (6.4-8.2) Albumin 3.1 G/DL (3.4-5.0) L Globulin 4.0 g/dL Albumin/Globulin Ratio 0.8 (1.0-2.7) L Plan Problems: (1) Anemia (2) Hypercapnic respiratory failure Assessment & Plan: respiratory insufficiency requiring prolonged ventilatory support unable to wean vent safely after multiple attempts discussed with pcp. discussed with pulm discussed with patient guardian. patient unable to consent. no nok or poa. given critical care and condition not recommended to await court decision which during pandemic can take long time. medically necessary to proceed with trach in patients best interest. 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
[2020-06-05 16:00] VITALS: BP 104/38
[2020-06-05 20:00] VITALS: BP 120/38
[2020-06-05] MEDS: Dyna-Hex 2% Top Sol 2oz TOPIC SCH (20:40)
[2020-06-05] MEDS: Miralax 17gm pkt ORAL SCH (22:03)
--- NOTE | 2020-06-05 23:36 | Psychiatric Progress Note ---
Psychiatry Progress Note Psychiatry Progress Note Subjective the pt has waxing and waning o consciousness on restraints episodes agitation confused Medications Current Medications Medications (Trade) Dose Ordered Sig/Angie Route PRN Reason Start Time Stop Time Status Last Admin Dose Admin Acetaminophen (Tylenol) 650 mg Q6H PRN NG Fever >100.5 05/14/20 21:00 06/13/20 20:59 05/14/20 21:10 Acetaminophen (Tylenol) 650 mg Q6H PRN NG Mild Pain (Pain Scale 1-3) 05/14/20 21:00 06/13/20 20:59 05/17/20 11:06 Acetazolamide (Diamox) 250 mg FOUR TIMES A DAY ORAL 06/04/20 13:30 07/04/20 13:29 06/05/20 22:02 Chlorhexidine Gluconate (Ruba-Hex 2%) 1 applic DAILY@1999 TOPIC 05/31/20 20:00 08/29/20 19:59 06/05/20 20:40 Clonidine HCl (Catapres Tab) 0.1 mg Q4H PRN ORAL sbp>170 05/11/20 17:15 08/09/20 17:14 Docusate Sodium (Colace) 100 mg TWICE A DAY ORAL 06/05/20 09:00 07/05/20 08:59 06/05/20 18:24 Furosemide (Lasix) 40 mg EVERY 12 HOURS IV 05/30/20 09:30 06/29/20 09:29 06/05/20 21:59 Haloperidol Lactate (Haldol) 5 mg Q6H PRN IM Agitation 05/13/20 20:45 06/27/20 20:44 05/28/20 02:40 Heparin Sodium (Porcine) (Heparin 5000 units/ml) 5,000 units EVERY 12 HOURS SUBQ 05/25/20 21:00 07/09/20 20:59 06/05/20 21:55 Lansoprazole (Prevacid) 30 mg BID ORAL 06/05/20 18:00 07/05/20 17:59 06/05/20 18:24 Levothyroxine Sodium (Synthroid) 50 mcg DAILY@0630 ORAL 05/14/20 06:30 06/13/20 06:29 06/05/20 05:44 Polyethylene Glycol (Miralax) 17 gm BEDTIME ORAL 05/25/20 21:00 06/24/20 20:59 06/05/20 22:03 Quetiapine Fumarate (SEROqueL) 50 mg Q12HR ORAL 05/24/20 21:00 07/08/20 20:59 06/05/20 21:00 Neurological/Psychiatric: Reports: anxiety, depressed, emotional problems; Denies: no symptoms, headache, numbness, paresthesia, pre-existing deficit, seizure, tingling, tremors, weakness, other Allergies: Coded Allergies: LITHIUM (Verified Allergy, Unknown, 02/07/19) Objective Data Height (Feet): 5 Height (Inches): 3.00 Weight (Pounds): 183 General Appearance: lethargic Additional Comments: waxing and waning consciousness. Disoriented. Mood is neutral to agitation. Affect is flat. Thought process, there is paucity of thought process. Thought content, no suicidal or homicidal ideation. Cognition is impaired. Insight and judgment is impaired. Assessment/Plan [place] I: [place] I Acute toxic encephalopathy. Schizophrenia. [place] II Deferred. [place] III COVID-19. [place] IV Low. [place] V 20 PLAN: 1. Discontinue the IV Haldol. 2. Start the patient on Haldol IM. 3. The patient benefits from bilateral soft restraints. 4. Provide the patient with reality orientation. 5. Discussed with the nurse. Status: progressing, unchanged, deteriorating Status Narrative [place] I Acute toxic encephalopathy. Schizophrenia. [place] II Deferred. [place] III COVID-19. [place] IV Low. [place] V 20 PLAN: 1. Discontinue the IV Haldol. 2. Start the patient on Haldol IM. 3. The patient benefits from bilateral soft restraints. 4. Provide the patient with reality orientation. 5. Discussed with the nurse. Assessment/Plan: [place] I Acute toxic encephalopathy. Schizophrenia. [place] II Deferred. [place] III COVID-19. [place] IV Low. [place] V 20 PLAN: 1. Discontinue the IV Haldol. 2. Start the patient on Haldol IM. 3. The patient benefits from bilateral soft restraints. 4. Provide the patient with reality orientation. 5. Discussed with the nurse. Kiana Hernandez MD Jun 05, 2020 23:36
[2020-06-06] VITALS: BP 123/49
[2020-06-06 04:00] VITALS: BP 116/41
--- NOTE | 2020-06-06 06:52 | Cardiac Electrophysiology PN ---
Assessment/Plan Assessment/Plan 1. Covid PNA and respiratory failure. S/P Remdesevir and Dexamethasone Self extubated on 14 liter venturi Mask Off Abx per ID. On Lasix [address] Myers 2. SSS with 8 pauses of more than 3 seconds including 9 and 10 second pauses off any QUEZADA or AVN blockers. Will need pacer consent from conservator/court and ID clearance 3. Hypotension. Off Dopamine.Tolerating Lasix. EF 55% 4. Schizophrenia and psychosis. 5. S/P MRSA & Klebsiella pneumonia treated DW RN Subjective Subjective Self extubated on 05/22/20 in Covid isolation S/P Left arm PICC line placement as has no iv access. Had multiple pauses of more than 3 seconds including a 4s and 7s and a 10 second pause at 1 AM on 05/31 Had pauses of 7, 8 and 6 seconds again 06/01/20 Conservator deferred authorization for PPM to court. Has positive blood Cx and ID clearance also pending pre pacer implant On 15 liter NRBFM No pauses overnight Objective Last 24 Hour Vital Signs Date Time Temp Pulse Resp B/P (MAP) Pulse Ox O2 Delivery O2 Flow Rate FiO2 06/06/20 04:00 96.4 66 20 116/41 (66) 98 06/06/20 04:00 62 06/06/20 00:00 96.4 62 20 123/49 (73) 97 06/06/20 00:00 68 06/05/20 21:00 Venturi Mask 15.0 06/05/20 20:00 52 06/05/20 20:00 96.4 59 21 120/38 (65) 100 06/05/20 19:16 98 Venturi Mask 14.0 55 06/05/20 16:00 97.1 66 18 104/38 (60) 98 06/05/20 16:00 61 06/05/20 12:00 96.6 58 18 113/39 (63) 99 06/05/20 12:00 62 06/05/20 09:00 Venturi Mask 15.0 06/05/20 08:00 66 06/05/20 08:00 97.9 60 18 111/55 (73) 99 06/05/20 07:30 99 Venturi Mask 14.0 55 Intake and Output 06/05/20 06/06/20 19:00 07:00 Intake Total 300 ml Balance 300 ml Intake Oral 300 ml # Voids 1 # Bowel Movements 1 Laboratory Tests Test 06/06/20 04:00 White Blood Count Pending Red Blood Count Pending Hemoglobin Pending Hematocrit Pending Mean Corpuscular Volume Pending Mean Corpuscular Hemoglobin Pending Mean Corpuscular Hemoglobin Concent Pending Red Cell Distribution Width Pending Platelet Count Pending Mean Platelet Volume Pending Neutrophils (%) (Auto) Pending Lymphocytes (%) (Auto) Pending Monocytes (%) (Auto) Pending Eosinophils (%) (Auto) Pending Basophils (%) (Auto) Pending Sodium Level Pending Potassium Level Pending Chloride Level Pending Carbon Dioxide Level Pending Blood Urea Nitrogen Pending Creatinine Pending Estimat Glomerular Filtration Rate Pending Glucose Level Pending Calcium Level Pending Phosphorus Level Pending Magnesium Level Pending Total Bilirubin Pending Aspartate Amino Transf (AST/SGOT) Pending Alanine Aminotransferase (ALT/SGPT) Pending Alkaline Phosphatase Pending C-Reactive Protein, Quantitative Pending Pro-B-Type Natriuretic Peptide Pending Total Protein Pending Albumin Pending Globulin Pending Objective HEAD AND NECK: Positive JVD. LUNGS: Decreased breath sounds. CARDIOVASCULAR: Regular S1 and S2 with no gallop. ABDOMEN: Obese. EXTREMITIES: Bilateral 2+ pitting edema. Cameron Davies MD Jun 06, 2020 06:52
[2020-06-06 06:58] LABS: BASOPHILS % (AUTO) 0.9 % (0.0-2.0); EOSINOPHILS % (AUTO) 2.5 % (0.0-3.0); HEMATOCRIT 28.1 % (37.0-47.0); HEMOGLOBIN 9.3 G/DL (12.0-16.0); LYMPHOCYTES % (AUTO) 32.1 % (20.0-45.0); MEAN CORPUSCULAR VOLUME 98 FL (80-99); MONOCYTES % (AUTO) 6.7 % (1.0-10.0); NEUTROPHILS % (AUTO) 57.7 % (45.0-75.0); PLATELET COUNT 200 K/UL (150-450); RED BLOOD COUNT 2.88 M/UL (4.20-5.40)
[2020-06-06 07:50] LABS: CALCIUM 9.3 MG/DL (8.5-10.1)
[2020-06-06 08:00] VITALS: BP 118/61
[2020-06-06] MEDS: Docusate 100mg/10ml Liq ORAL SCH ×2 (08:30→17:29)
[2020-06-06] MEDS: Heparin 5000 units/ml inj SUBQ SCH ×2 (08:32→21:17)
[2020-06-06 08:36] LABS: CHLORIDE 99 MMOL/L (98-107); POTASSIUM 3.5 MMOL/L (3.5-5.1); SODIUM 141 MMOL/L (136-145)
[2020-06-06 08:37] LABS: ALANINE AMINOTRANSFERASE 8 U/L (12-78); ASPARTATE AMINO TRANSFERASE 15 U/L (15-37); BILIRUBIN,TOTAL 1.4 MG/DL (0.2-1.0); BLOOD UREA NITROGEN 30 mg/dL (7-18); CREATININE 1.1 MG/DL (0.55-1.30); PHOSPHORUS 4.1 MG/DL (2.5-4.9)
[2020-06-06 08:38] LABS: ALBUMIN 3.2 G/DL (3.4-5.0); ALKALINE PHOSPHATASE 49 U/L (46-116); CARBON DIOXIDE 39 MMOL/L (21-32)
[2020-06-06 08:39] LABS: BILIRUBIN,DIRECT 0.4 MG/DL (0.0-0.3)
--- NOTE | 2020-06-06 08:55 | Hematology/Onc Progress Note ---
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 ( combination of moderate aortic regurgitation and severe mitral regurgitation) --> diuresis as per cards --> lasix last time # Severe ascending aortic dilatation --> per shannan, Dr Davies # Hypertension # Parkinson disease # Hyperlipidemia # Hypothyroidism # Dementia # Obesity # Schizophrenia --> as per [facility] --> restraints # Dvt ppx heparin sq Appreciate alliance consultant care and alexei Rn Subjective HEENT: Denies: no symptoms, eye pain, blurred vision, tearing, double vision, ear pain, ear discharge, nose pain, nose congestion, throat pain, throat swelling, mouth pain, mouth swelling, other Cardiovascular: Denies: no symptoms, chest pain, edema, irregular heart rate, lightheadedness, palpitations, syncope, other Respiratory: Denies: no symptoms, cough, shortness of breath, SOB with excertion, SOB at rest, sputum, wheezing, other Genitourinary: Denies: no symptoms, burning, discharge, frequency, flank pain, hematuria, incontinence, pain, urgency, other Neurologic/Psychiatric: Denies: no symptoms, anxiety, depressed, emotional problems, headache, numbness, paresthesia, pre-existing deficit, seizure, tingling, tremors, weakness, other Endocrine: Denies: no symptoms, excessive sweating, flushing, intolerance to cold, intolerance to heat, increased hunger, increased thirst, increased urine, unexplained weight gain, unexplained weight loss, other Allergies: Coded Allergies: LITHIUM (Verified Allergy, Unknown, 02/07/19) Subjective 06/01 nonrebreather, 15L, some mild pain in back, chest, no night sweats 06/02 remains on nonrebreather, labs are noted, no bleeding or night sweats 06/03 labs reviewed, meds noted, nonrebreather, c02 was elevated, to inform pulm 06/04 labs reviewed, meds noted, on NR, no night sweats, meds noted 06/05 is on 15lnc venturi mask, is covid iso, labs noted 06/06 labs reviewed, on venturi mask, on b/l soft wrists, meds noted Objective Objective Current Medications Medications (Trade) Dose Ordered Sig/Angie Route PRN Reason Start Time Stop Time Status Last Admin Dose Admin Acetaminophen (Tylenol) 650 mg Q6H PRN NG Fever >100.5 05/14/20 21:00 06/13/20 20:59 05/14/20 21:10 Acetaminophen (Tylenol) 650 mg Q6H PRN NG Mild Pain (Pain Scale 1-3) 05/14/20 21:00 06/13/20 20:59 05/17/20 11:06 Acetazolamide (Diamox) 250 mg FOUR TIMES A DAY ORAL 06/04/20 13:30 07/04/20 13:29 06/06/20 08:31 Chlorhexidine Gluconate (Ruba-Hex 2%) 1 applic DAILY@1999 TOPIC 05/31/20 20:00 08/29/20 19:59 06/05/20 20:40 Clonidine HCl (Catapres Tab) 0.1 mg Q4H PRN ORAL sbp>170 05/11/20 17:15 08/09/20 17:14 Docusate Sodium (Colace) 100 mg TWICE A DAY ORAL 06/05/20 09:00 07/05/20 08:59 06/06/20 08:30 Furosemide (Lasix) 40 mg EVERY 12 HOURS IV 05/30/20 09:30 06/29/20 09:29 06/06/20 08:31 Haloperidol Lactate (Haldol) 5 mg Q6H PRN IM Agitation 05/13/20 20:45 06/27/20 20:44 05/28/20 02:40 Heparin Sodium (Porcine) (Heparin 5000 units/ml) 5,000 units EVERY 12 HOURS SUBQ 05/25/20 21:00 07/09/20 20:59 06/06/20 08:32 Lansoprazole (Prevacid) 30 mg BID ORAL 06/05/20 18:00 07/05/20 17:59 06/06/20 08:31 Levothyroxine Sodium (Synthroid) 50 mcg DAILY@0630 ORAL 05/14/20 06:30 06/13/20 06:29 06/06/20 06:22 Polyethylene Glycol (Miralax) 17 gm BEDTIME ORAL 05/25/20 21:00 06/24/20 20:59 06/05/20 22:03 Quetiapine Fumarate (SEROqueL) 50 mg Q12HR ORAL 05/24/20 21:00 07/08/20 20:59 06/06/20 08:30 Last 24 Hour Vital Signs Date Time Temp Pulse Resp B/P (MAP) Pulse Ox O2 Delivery O2 Flow Rate FiO2 06/06/20 08:00 96.7 67 20 118/61 (80) 97 06/06/20 04:00 96.4 66 20 116/41 (66) 98 06/06/20 04:00 62 06/06/20 00:00 96.4 62 20 123/49 (73) 97 06/06/20 00:00 68 06/05/20 21:00 Venturi Mask 15.0 06/05/20 20:00 52 06/05/20 20:00 96.4 59 21 120/38 (65) 100 06/05/20 19:16 98 Venturi Mask 14.0 55 06/05/20 16:00 97.1 66 18 104/38 (60) 98 06/05/20 16:00 61 06/05/20 12:00 96.6 58 18 113/39 (63) 99 06/05/20 12:00 62 06/05/20 09:00 Venturi Mask 15.0 06/05/20 08:00 66 06/05/20 08:00 97.9 60 18 111/55 (73) 99 06/05/20 07:30 99 Venturi Mask 14.0 55 06/05/20 04:00 98.5 67 24 127/49 (75) 100 06/05/20 04:00 69 06/05/20 00:00 62 06/05/20 00:00 98.2 68 24 114/53 (73) 100 06/04/20 22:45 95 Venturi Mask 14.0 55 06/04/20 21:00 Venturi Mask 15.0 06/04/20 20:00 56 06/04/20 20:00 98.6 69 24 144/54 (84) 100 06/04/20 16:00 62 06/04/20 16:00 98.7 69 21 120/73 (89) 95 06/04/20 12:00 97.2 62 22 133/47 (75) 95 06/04/20 12:00 14.0 06/04/20 12:00 Venturi Mask 14.0 06/04/20 12:00 64 Intake and Output 06/05/20 06/06/20 19:00 07:00 Intake Total 300 ml Balance 300 ml Intake Oral 300 ml # Voids 1 # Bowel Movements 1 Labs Test 06/03/20 09:38 06/04/20 04:00 06/04/20 10:20 06/05/20 04:00 Arterial Blood pH 7.518 (7.350-7.450) 7.507 (7.350-7.450) Arterial Blood Partial Pressure CO2 53.7 mmHg (35.0-45.0) 55.5 mmHg (35.0-45.0) Arterial Blood Partial Pressure O2 37.2 mmHg (75.0-100.0) 73.6 mmHg (75.0-100.0) Arterial Blood HCO3 42.7 mmol/L (22.0-26.0) 43.0 mmol/L (22.0-26.0) Arterial Blood Oxygen Saturation 74.2 % (95-100) 94.2 % (95-100) Arterial Blood Base Excess 17.6 (-2-2) 17.7 (-2-2) Raphael Test Positive Positive White Blood Count 4.1 K/UL (4.8-10.8) 5.3 K/UL (4.8-10.8) Red Blood Count 2.68 M/UL (4.20-5.40) 2.91 M/UL (4.20-5.40) Hemoglobin 8.6 G/DL (12.0-16.0) 9.5 G/DL (12.0-16.0) Hematocrit 25.5 % (37.0-47.0) 29.3 % (37.0-47.0) Mean Corpuscular Volume 95 FL (80-99) 101 FL (80-99) Mean Corpuscular Hemoglobin 32.0 PG (27.0-31.0) 32.7 PG (27.0-31.0) Mean Corpuscular Hemoglobin Concent 33.7 G/DL (32.0-36.0) 32.5 G/DL (32.0-36.0) Red Cell Distribution Width 16.4 % (11.6-14.8) 16.7 % (11.6-14.8) Platelet Count 168 K/UL (150-450) 188 K/UL (150-450) Mean Platelet Volume 6.9 FL (6.5-10.1) 6.8 FL (6.5-10.1) Neutrophils (%) (Auto) 56.2 % (45.0-75.0) 63.7 % (45.0-75.0) Lymphocytes (%) (Auto) 33.5 % (20.0-45.0) 28.0 % (20.0-45.0) Monocytes (%) (Auto) 7.5 % (1.0-10.0) 5.9 % (1.0-10.0) Eosinophils (%) (Auto) 1.9 % (0.0-3.0) 1.5 % (0.0-3.0) Basophils (%) (Auto) 0.9 % (0.0-2.0) 0.9 % (0.0-2.0) Erythrocyte Sedimentation Rate 110 MM/HR (0-30) Sodium Level 143 MMOL/L (136-145) Potassium Level 3.1 MMOL/L (3.5-5.1) Chloride Level 100 MMOL/L (98-107) Carbon Dioxide Level 42 MMOL/L (21-32) Anion Gap 2 mmol/L (5-15) Blood Urea Nitrogen 25 mg/dL (7-18) Creatinine 1.1 MG/DL (0.55-1.30) Estimat Glomerular Filtration Rate 47.8 mL/min (>60) Glucose Level 84 MG/DL (74-106) Calcium Level 9.0 MG/DL (8.5-10.1) Phosphorus Level 3.2 MG/DL (2.5-4.9) Magnesium Level 2.0 MG/DL (1.8-2.4) Total Bilirubin 1.9 MG/DL (0.2-1.0) Direct Bilirubin 0.4 MG/DL (0.0-0.3) Aspartate Amino Transf (AST/SGOT) 10 U/L (15-37) Alanine Aminotransferase (ALT/SGPT) 11 U/L (12-78) Alkaline Phosphatase 50 U/L (46-116) C-Reactive Protein, Quantitative 1.7 mg/dL (0.00-0.90) Pro-B-Type Natriuretic Peptide 1781 pg/mL (0-125) Total Protein 7.1 G/DL (6.4-8.2) Albumin 3.1 G/DL (3.4-5.0) Globulin 4.0 g/dL Albumin/Globulin Ratio 0.8 (1.0-2.7) Test 06/06/20 04:00 White Blood Count 5.0 K/UL (4.8-10.8) Red Blood Count 2.88 M/UL (4.20-5.40) Hemoglobin 9.3 G/DL (12.0-16.0) Hematocrit 28.1 % (37.0-47.0) Mean Corpuscular Volume 98 FL (80-99) Mean Corpuscular Hemoglobin 32.2 PG (27.0-31.0) Mean Corpuscular Hemoglobin Concent 33.0 G/DL (32.0-36.0) Red Cell Distribution Width 17.0 % (11.6-14.8) Platelet Count 200 K/UL (150-450) Mean Platelet Volume 6.8 FL (6.5-10.1) Neutrophils (%) (Auto) 57.7 % (45.0-75.0) Lymphocytes (%) (Auto) 32.1 % (20.0-45.0) Monocytes (%) (Auto) 6.7 % (1.0-10.0) Eosinophils (%) (Auto) 2.5 % (0.0-3.0) Basophils (%) (Auto) 0.9 % (0.0-2.0) Sodium Level 141 MMOL/L (136-145) Potassium Level 3.5 MMOL/L (3.5-5.1) Chloride Level 99 MMOL/L (98-107) Carbon Dioxide Level 39 MMOL/L (21-32) Blood Urea Nitrogen 30 mg/dL (7-18) Creatinine 1.1 MG/DL (0.55-1.30) Estimat Glomerular Filtration Rate 47.8 mL/min (>60) Glucose Level 81 MG/DL (74-106) Calcium Level 9.3 MG/DL (8.5-10.1) Phosphorus Level 4.1 MG/DL (2.5-4.9) Magnesium Level 2.1 MG/DL (1.8-2.4) Total Bilirubin 1.4 MG/DL (0.2-1.0) Direct Bilirubin 0.4 MG/DL (0.0-0.3) Aspartate Amino Transf (AST/SGOT) 15 U/L (15-37) Alanine Aminotransferase (ALT/SGPT) 8 U/L (12-78) Alkaline Phosphatase 49 U/L (46-116) C-Reactive Protein, Quantitative 1.3 mg/dL (0.00-0.90) Pro-B-Type Natriuretic Peptide 1176 pg/mL (0-125) Total Protein 7.4 G/DL (6.4-8.2) Albumin 3.2 G/DL (3.4-5.0) Globulin 4.2 g/dL Height (Feet): 5 Height (Inches): 3.00 Weight (Pounds): 183 Objective Physical Exam: Vitals: reviewed General: NAD HEENT: nc, at Neck: supple Chest: decreased breath sounds bilaterally, crackles+++ 15L NRM Cardiovascular: RRR, no s3, s4 Abdomen: soft, nontender, nd Extremities: 1-2 + edema Neuro: nonverbal Frank Escobar MD Jun 06, 2020 08:55
--- NOTE | 2020-06-06 10:29 | Pulmonology Progress Note ---
Subjective ROS Limited/Unobtainable: Yes Interval Events: none major reported per nursing Constitutional: Denies: fever HEENT: Repors: no symptoms Respiratory: Reports: no symptoms Cardiovascular: Reports: no symptoms Gastrointestinal/Abdominal: Reports: no symptoms Genitourinary: Reports: no symptoms Allergies: Coded Allergies: LITHIUM (Verified Allergy, Unknown, 02/07/19) Objective Last 24 Hour Vital Signs Date Time Temp Pulse Resp B/P (MAP) Pulse Ox O2 Delivery O2 Flow Rate FiO2 06/06/20 08:00 63 06/06/20 08:00 96.7 67 20 118/61 (80) 97 06/06/20 04:00 96.4 66 20 116/41 (66) 98 06/06/20 04:00 62 06/06/20 00:00 96.4 62 20 123/49 (73) 97 06/06/20 00:00 68 06/05/20 21:00 Venturi Mask 15.0 06/05/20 20:00 52 06/05/20 20:00 96.4 59 21 120/38 (65) 100 06/05/20 19:16 98 Venturi Mask 14.0 55 06/05/20 16:00 97.1 66 18 104/38 (60) 98 06/05/20 16:00 61 06/05/20 12:00 96.6 58 18 113/39 (63) 99 06/05/20 12:00 62 Intake and Output 06/05/20 06/06/20 19:00 07:00 Intake Total 300 ml Balance 300 ml Intake Oral 300 ml # Voids 1 # Bowel Movements 1 Objective 06/06 no change 06/05 now on 14L Ventimask saturating at high 90s 05/31 on Venturi mask saturating well 05/29/2020 now on 2 lpm NC saturating at 97%; in transfusion 05/28/2020 in SDU; currently on Venturi mask 14L FiO2 14L saturating well 05/27/2020 in SDU; s/p failed attempt at switching to NC due to patient noncompliance; currently saturating low-mid 90s when she is actually on Venturi mask 14L 05/26/2020 in SDU; keeps taking off her NRB and desats to 79-80% 05/24/2020 in ICUD; restless, saturating ok with NC 05/19/2020 Pt in ICU; full code General Appearance: no acute distress HEENT: normocephalic Respiratory: no respiratory distress, decreased breath sounds Cardiovascular: normal rate Abdomen: soft, non tender, other - obese, NG tube Extremities: other - b/l 2+ pitting edema Neurologic: disoriented Laboratory Tests 06/06/20 04:00: White Blood Count 5.0, Red Blood Count 2.88L, Hemoglobin 9.3L, Hematocrit 28.1L, Mean Corpuscular Volume 98, Mean Corpuscular Hemoglobin 32.2H, Mean Corpuscular Hemoglobin Concent 33.0, Red Cell Distribution Width 17.0H, Platelet Count 200, Mean Platelet Volume 6.8, Neutrophils (%) (Auto) 57.7, Lymphocytes (%) (Auto) 32.1, Monocytes (%) (Auto) 6.7, Eosinophils (%) (Auto) 2.5, Basophils (%) (Auto) 0.9, Sodium Level 141, Potassium Level 3.5, Chloride Level 99, Carbon Dioxide Level 39H, Blood Urea Nitrogen 30H, Creatinine 1.1, Estimat Glomerular Filtration Rate 47.8, Glucose Level 81, Calcium Level 9.3, Phosphorus Level 4.1, Magnesium Level 2.1, Total Bilirubin 1.4H, Direct Bilirubin 0.4H, Aspartate Amino Transf (AST/SGOT) 15, Alanine Aminotransferase (ALT/SGPT) 8L, Alkaline Phosphatase 49, C-Reactive Protein, Quantitative 1.3H, Pro-B-Type Natriuretic Peptide 1176H, Total Protein 7.4, Albumin 3.2L, Globulin 4.2 Current Medications Medications (Trade) Dose Ordered Sig/Angie Route PRN Reason Start Time Stop Time Status Last Admin Dose Admin Acetaminophen (Tylenol) 650 mg Q6H PRN NG Fever >100.5 05/14/20 21:00 06/13/20 20:59 05/14/20 21:10 Acetaminophen (Tylenol) 650 mg Q6H PRN NG Mild Pain (Pain Scale 1-3) 05/14/20 21:00 06/13/20 20:59 05/17/20 11:06 Acetazolamide (Diamox) 250 mg FOUR TIMES A DAY ORAL 06/04/20 13:30 07/04/20 13:29 06/06/20 08:31 Chlorhexidine Gluconate (Ruba-Hex 2%) 1 applic DAILY@2000 TOPIC 05/31/20 20:00 08/29/20 19:59 06/05/20 20:40 Clonidine HCl (Catapres Tab) 0.1 mg Q4H PRN ORAL sbp>170 05/11/20 17:15 08/09/20 17:14 Docusate Sodium (Colace) 100 mg TWICE A DAY ORAL 06/05/20 09:00 07/05/20 08:59 06/06/20 08:30 Furosemide (Lasix) 40 mg EVERY 12 HOURS IV 05/30/20 09:30 06/29/20 09:29 06/06/20 08:31 Haloperidol Lactate (Haldol) 5 mg Q6H PRN IM Agitation 05/13/20 20:45 06/27/20 20:44 05/28/20 02:40 Heparin Sodium (Porcine) (Heparin 5000 units/ml) 5,000 units EVERY 12 HOURS SUBQ 05/25/20 21:00 07/09/20 20:59 06/06/20 08:32 Lansoprazole (Prevacid) 30 mg BID ORAL 06/05/20 18:00 07/05/20 17:59 06/06/20 08:31 Levothyroxine Sodium (Synthroid) 50 mcg DAILY@0630 ORAL 05/14/20 06:30 06/13/20 06:29 06/06/20 06:22 Polyethylene Glycol (Miralax) 17 gm BEDTIME ORAL 05/25/20 21:00 06/24/20 20:59 06/05/20 22:03 Quetiapine Fumarate (SEROqueL) 50 mg Q12HR ORAL 05/24/20 21:00 07/08/20 20:59 06/06/20 08:30 Assessment/Plan Assessment/Plan 1. Bilateral COVID-19 multilobar pneumonia. - s/p ETT - Afebrile - s/p Azithromycin, Ceftriaxone, dexamethasone - s/p remdesivir - CXR 05/31 Patchy bilateral airspace consolidations, consistent with multifocal infiltrate, similar in appearance to previous study from 05/30; Stable, small bilateral pleural effusions. - COVID-19 PCR 06/02 inconclusive result 2. Hx of COPD. 3. Schizophrenia/psychosis - On haloperidol per Dr. Hernandez; refusing all PO medications 4. Hypoxia. -Now on 14L/min via Ventimask; ABG better; saturating better - Latest CXR (05/31) unchanged; will repeat CXR in AM - on Lasix 40 mg IV BID; - Will dc Diamox - recommend continues diuresis with ongoing BUN/Cr monitoring 5. Anemia 6. SSS - plan for pacer noted; per cardio DVT ppx The care for this patient was discussed with my supervising physician Time spent for this case was approximately 31 minutes Trae Avilez Jun 06, 2020 10:29 Sincere Myers MD Jun 06, 2020 11:46
--- NOTE | 2020-06-06 11:19 | Surgery Progress Note ---
Surgery Progress Note Subjective Additional Comments awake, alert comfortable no n/v/f/c Objective Last 24 Hour Vital Signs Date Time Temp Pulse Resp B/P (MAP) Pulse Ox O2 Delivery O2 Flow Rate FiO2 06/06/20 09:00 Venturi Mask 10.0 06/06/20 08:00 63 06/06/20 08:00 96.7 67 20 118/61 (80) 97 06/06/20 04:00 96.4 66 20 116/41 (66) 98 06/06/20 04:00 62 06/06/20 00:00 96.4 62 20 123/49 (73) 97 06/06/20 00:00 68 06/05/20 21:00 Venturi Mask 15.0 06/05/20 20:00 52 06/05/20 20:00 96.4 59 21 120/38 (65) 100 06/05/20 19:16 98 Venturi Mask 14.0 55 06/05/20 16:00 97.1 66 18 104/38 (60) 98 06/05/20 16:00 61 06/05/20 12:00 96.6 58 18 113/39 (63) 99 06/05/20 12:00 62 I&O Intake and Output 06/05/20 06/06/20 18:59 06:59 Intake Total 300 ml Balance 300 ml Intake Oral 300 ml # Voids 1 # Bowel Movements 1 Dressing: dry Wound: clean Cardiovascular: RSR Respiratory: clear Abdomen: soft, non-tender, present bowel sounds Extremities: no edema, no tenderness, no cyanosis Laboratory Tests Test 06/06/20 04:00 White Blood Count 5.0 K/UL (4.8-10.8) Red Blood Count 2.88 M/UL (4.20-5.40) L Hemoglobin 9.3 G/DL (12.0-16.0) L Hematocrit 28.1 % (37.0-47.0) L Mean Corpuscular Volume 98 FL (80-99) Mean Corpuscular Hemoglobin 32.2 PG (27.0-31.0) H Mean Corpuscular Hemoglobin Concent 33.0 G/DL (32.0-36.0) Red Cell Distribution Width 17.0 % (11.6-14.8) H Platelet Count 200 K/UL (150-450) Mean Platelet Volume 6.8 FL (6.5-10.1) Neutrophils (%) (Auto) 57.7 % (45.0-75.0) Lymphocytes (%) (Auto) 32.1 % (20.0-45.0) Monocytes (%) (Auto) 6.7 % (1.0-10.0) Eosinophils (%) (Auto) 2.5 % (0.0-3.0) Basophils (%) (Auto) 0.9 % (0.0-2.0) Sodium Level 141 MMOL/L (136-145) Potassium Level 3.5 MMOL/L (3.5-5.1) Chloride Level 99 MMOL/L (98-107) Carbon Dioxide Level 39 MMOL/L (21-32) H Blood Urea Nitrogen 30 mg/dL (7-18) H Creatinine 1.1 MG/DL (0.55-1.30) Estimat Glomerular Filtration Rate 47.8 mL/min (>60) Glucose Level 81 MG/DL (74-106) Calcium Level 9.3 MG/DL (8.5-10.1) Phosphorus Level 4.1 MG/DL (2.5-4.9) Magnesium Level 2.1 MG/DL (1.8-2.4) Total Bilirubin 1.4 MG/DL (0.2-1.0) H Direct Bilirubin 0.4 MG/DL (0.0-0.3) H Aspartate Amino Transf (AST/SGOT) 15 U/L (15-37) Alanine Aminotransferase (ALT/SGPT) 8 U/L (12-78) L Alkaline Phosphatase 49 U/L (46-116) C-Reactive Protein, Quantitative 1.3 mg/dL (0.00-0.90) H Pro-B-Type Natriuretic Peptide 1176 pg/mL (0-125) H Total Protein 7.4 G/DL (6.4-8.2) Albumin 3.2 G/DL (3.4-5.0) L Globulin 4.2 g/dL Plan Problems: (1) Anemia (2) Hypercapnic respiratory failure Assessment & Plan: respiratory insufficiency requiring prolonged ventilatory support unable to wean vent safely after multiple attempts discussed with pcp. discussed with pulm discussed with patient guardian. patient unable to consent. no nok or poa. given critical care and condition not recommended to await court decision which during pandemic can take long time. medically necessary to proceed with trach in patients best interest. 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
[2020-06-06 12:00] VITALS: BP 120/81
--- NOTE | 2020-06-06 14:51 | Nephrology Progress Note ---
Assessment/Plan Problem List: (1) Renal failure (ARF), acute on chronic (2) Hypercapnic respiratory failure (3) CHF exacerbation (4) Anemia Assessment Azotemia/renal failure Acute respiratory failure most likely secondary to CHF, on mechanical ventilation History of COPD Hypertension Hyperlipemia Schizophrenia/psychosis Plan June 06: Status quo. Remains on Venturi mask. Labs reviewed. Renal parameters stable. Continue per consultants. June 05: Lethargic. On Venturi mask. Labs reviewed. Returning bicarb. Continue to monitor ABG and electrolytes. Low potassium addressed. June 04: Remains on Venturi mask. No can panel done today. ABG results reviewed. Continue per pulmonary. June 03: Poor respiratory status. ABG noted. Patient hypoxic. Renal parameters somewhat stable. Continue per pulmonary. June 02: Labs reviewed. Low phosphorus replaced. Patient has periodic severe bradycardia. Continue per cardiology. June 01: Labs reviewed. Low magnesium replaced. Renal parameters stable. Hemoglobin level reasonable. Continue per consultants. May 31: Labs reviewed. Abnormal electrolytes at rest. Hemoglobin higher. Discussed with DARREL Cooper. Continue per consultants. May 30: Lab reviewed. Potassium and phosphorus replaced. Hemoglobin higher after transfusion. Continue per consultants. May 29: Lab reviewed. Patient anemic. Electrolyte abnormalities reviewed and addressed. Continue per consultants. Remains stable from renal standpoint of view. May 28: Patient was not transfused despite of my order since yesterday. Will defer transfusion to PMD/manager highway. Patient remains stable from renal standpoint of view. Continue per consultants. Discussed with Marlene nursing charge in [place]. May 27: Remains on Venturi mask. Labs reviewed. Abnormal electrolytes addressed. Hemoglobin low. Will transfuse 1 unit of packed RBCs today May 26: On Venturi mask. Labs reviewed. Abnormal electrolytes addressed. Continue per consultants and pulmonary support. May 25: On Venturi mask. Lethargic. No labs drawn today. Will monitor renal parameters. Per orders. May 24: Remains extubated. Will start on diet with high alert for possible aspiration. Continue to monitor renal parameters. May 23: Continues to be extubated. On nonrebreathing mask. Labs reviewed. Renal parameters stable. Discussed with RN. Continue per current management. May 22: Now extubated on nonrebreathing mask. Labs reviewed. Renal parameters stable. Abnormal electrolytes addressed. Discussed with RN. May 21: Remains intubated. Labs reviewed. Abnormal electrolytes addressed. Discussed with RN. May 20: Remains intubated. Abnormal electrolyte noted on today's lab results and addressed. Continue per consultants. May 19: Patient remains intubated. Labs reviewed. Abnormal electrolytes addressed. Continue per current management. May 18: Patient seen in ICU. Remains intubated. Weaning is being tried. Discussed with RN. Labs reviewed. Abnormal electrolyte addressed. Continue per consultants. May 17: Labs reviewed. Remains intubated. Stable from renal standpoint of view. Continue weaning. Discussed with RN. May 16: Labs reviewed. Remains intubated. Remains full code. Stable from renal standpoint of view. Abnormal electrolytes addressed. May 15: Labs reviewed. Renal parameters stable. Discussed with RN. Patient remains intubated on ventilator and full code. Continue per consultants. May 14: Labs reviewed. Discussed with RN. Abnormal electrolyte addressed. Continue per current management. Patient seen in ICU. Discussed with RN. Today's labs pending. Patient remains on 6 mics of dopamine. Pulmonary support Monitor intake and output Monitor electrolytes Continue per consultants Per orders Subjective ROS Limited/Unobtainable: No Constitutional: Reports: malaise, weakness Objective Objective Last 24 Hour Vital Signs Date Time Temp Pulse Resp B/P (MAP) Pulse Ox O2 Delivery O2 Flow Rate FiO2 06/06/20 12:00 73 06/06/20 12:00 96.8 76 19 120/81 (94) 98 06/06/20 09:00 Venturi Mask 10.0 06/06/20 08:00 63 06/06/20 08:00 96.7 67 20 118/61 (80) 97 06/06/20 04:00 96.4 66 20 116/41 (66) 98 06/06/20 04:00 62 06/06/20 00:00 96.4 62 20 123/49 (73) 97 06/06/20 00:00 68 06/05/20 21:00 Venturi Mask 15.0 06/05/20 20:00 52 06/05/20 20:00 96.4 59 21 120/38 (65) 100 06/05/20 19:16 98 Venturi Mask 14.0 55 06/05/20 16:00 97.1 66 18 104/38 (60) 98 06/05/20 16:00 61 Intake and Output 06/05/20 06/06/20 19:00 07:00 Intake Total 300 ml Balance 300 ml Intake Oral 300 ml # Voids 1 # Bowel Movements 1 Laboratory Tests 06/06/20 04:00: White Blood Count 5.0, Red Blood Count 2.88L, Hemoglobin 9.3L, Hematocrit 28.1L, Mean Corpuscular Volume 98, Mean Corpuscular Hemoglobin 32.2H, Mean Corpuscular Hemoglobin Concent 33.0, Red Cell Distribution Width 17.0H, Platelet Count 200, Mean Platelet Volume 6.8, Neutrophils (%) (Auto) 57.7, Lymphocytes (%) (Auto) 32.1, Monocytes (%) (Auto) 6.7, Eosinophils (%) (Auto) 2.5, Basophils (%) (Auto) 0.9, Sodium Level 141, Potassium Level 3.5, Chloride Level 99, Carbon Dioxide Level 39H, Blood Urea Nitrogen 30H, Creatinine 1.1, Estimat Glomerular Filtration Rate 47.8, Glucose Level 81, Calcium Level 9.3, Phosphorus Level 4.1, Magnesium Level 2.1, Total Bilirubin 1.4H, Direct Bilirubin 0.4H, Aspartate Amino Transf (AST/SGOT) 15, Alanine Aminotransferase (ALT/SGPT) 8L, Alkaline Phosphatase 49, C-Reactive Protein, Quantitative 1.3H, Pro-B-Type Natriuretic Peptide 1176H, Total Protein 7.4, Albumin 3.2L, Globulin 4.2 Height (Feet): 5 Height (Inches): 3.00 Weight (Pounds): 183 General Appearance: no apparent distress EENT: other - On Venturi mask Cardiovascular: normal rate Respiratory/Chest: decreased breath sounds Abdomen: distended Bryan Ochoa MD Jun 06, 2020 14:51
--- NOTE | 2020-06-06 15:47 | Infectious Diseases Prog Note ---
Assessment/Plan Assessment/Plan IMPRESSION: COVID-19 disease, Acute respiratory failure, COPD, Diastolic CHF, Mitral valve regurgitation, Anemia, Parkinson disease, schizoaffective disorder, Dementia, Obstructive sleep apnea, Hypothyroidism. 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 SSS with pause RECOMMENDATION: Finished dexamethasone & Remdesivir course Observe off of antibiotic Last COV19 test : inconclusive Subjective ROS Limited/Unobtainable: Yes Constitutional: Denies: fever Neurologic: Reports: confusion, other - on restraint Allergies: Coded Allergies: LITHIUM (Verified Allergy, Unknown, 02/07/19) Objective Last 24 Hour Vital Signs Date Time Temp Pulse Resp B/P (MAP) Pulse Ox O2 Delivery O2 Flow Rate FiO2 06/06/20 12:00 73 06/06/20 12:00 96.8 76 19 120/81 (94) 98 06/06/20 09:00 Venturi Mask 10.0 06/06/20 08:00 63 06/06/20 08:00 96.7 67 20 118/61 (80) 97 06/06/20 04:00 96.4 66 20 116/41 (66) 98 06/06/20 04:00 62 06/06/20 00:00 96.4 62 20 123/49 (73) 97 06/06/20 00:00 68 06/05/20 21:00 Venturi Mask 15.0 06/05/20 20:00 52 06/05/20 20:00 96.4 59 21 120/38 (65) 100 06/05/20 19:16 98 Venturi Mask 14.0 55 06/05/20 16:00 97.1 66 18 104/38 (60) 98 06/05/20 16:00 61 Height (Feet): 5 Height (Inches): 3.00 Weight (Pounds): 183 HEENT: mucous membranes moist Respiratory/Chest: no respiratory distress, other Cardiovascular: normal rate Abdomen: soft, non tender Extremities: no edema Neurologic/Psychiatric: alert, responsive Laboratory Tests Test 06/06/20 04:00 White Blood Count 5.0 K/UL (4.8-10.8) Red Blood Count 2.88 M/UL (4.20-5.40) L Hemoglobin 9.3 G/DL (12.0-16.0) L Hematocrit 28.1 % (37.0-47.0) L Mean Corpuscular Volume 98 FL (80-99) Mean Corpuscular Hemoglobin 32.2 PG (27.0-31.0) H Mean Corpuscular Hemoglobin Concent 33.0 G/DL (32.0-36.0) Red Cell Distribution Width 17.0 % (11.6-14.8) H Platelet Count 200 K/UL (150-450) Mean Platelet Volume 6.8 FL (6.5-10.1) Neutrophils (%) (Auto) 57.7 % (45.0-75.0) Lymphocytes (%) (Auto) 32.1 % (20.0-45.0) Monocytes (%) (Auto) 6.7 % (1.0-10.0) Eosinophils (%) (Auto) 2.5 % (0.0-3.0) Basophils (%) (Auto) 0.9 % (0.0-2.0) Sodium Level 141 MMOL/L (136-145) Potassium Level 3.5 MMOL/L (3.5-5.1) Chloride Level 99 MMOL/L (98-107) Carbon Dioxide Level 39 MMOL/L (21-32) H Blood Urea Nitrogen 30 mg/dL (7-18) H Creatinine 1.1 MG/DL (0.55-1.30) Estimat Glomerular Filtration Rate 47.8 mL/min (>60) Glucose Level 81 MG/DL (74-106) Calcium Level 9.3 MG/DL (8.5-10.1) Phosphorus Level 4.1 MG/DL (2.5-4.9) Magnesium Level 2.1 MG/DL (1.8-2.4) Total Bilirubin 1.4 MG/DL (0.2-1.0) H Direct Bilirubin 0.4 MG/DL (0.0-0.3) H Aspartate Amino Transf (AST/SGOT) 15 U/L (15-37) Alanine Aminotransferase (ALT/SGPT) 8 U/L (12-78) L Alkaline Phosphatase 49 U/L (46-116) C-Reactive Protein, Quantitative 1.3 mg/dL (0.00-0.90) H Pro-B-Type Natriuretic Peptide 1176 pg/mL (0-125) H Total Protein 7.4 G/DL (6.4-8.2) Albumin 3.2 G/DL (3.4-5.0) L Globulin 4.2 g/dL Current Medications Medications (Trade) Dose Ordered Sig/Angie Route PRN Reason Start Time Stop Time Status Last Admin Dose Admin Acetaminophen (Tylenol) 650 mg Q6H PRN NG Fever >100.5 05/14/20 21:00 06/13/20 20:59 05/14/20 21:10 Acetaminophen (Tylenol) 650 mg Q6H PRN NG Mild Pain (Pain Scale 1-3) 05/14/20 21:00 06/13/20 20:59 05/17/20 11:06 Chlorhexidine Gluconate (Ruba-Hex 2%) 1 applic DAILY@1999 TOPIC 05/31/20 20:00 08/29/20 19:59 06/05/20 20:40 Clonidine HCl (Catapres Tab) 0.1 mg Q4H PRN ORAL sbp>170 05/11/20 17:15 08/09/20 17:14 Docusate Sodium (Colace) 100 mg TWICE A DAY ORAL 06/05/20 09:00 07/05/20 08:59 06/06/20 08:30 Furosemide (Lasix) 40 mg EVERY 12 HOURS IV 05/30/20 09:30 06/29/20 09:29 06/06/20 08:31 Haloperidol Lactate (Haldol) 5 mg Q6H PRN IM Agitation 05/13/20 20:45 06/27/20 20:44 05/28/20 02:40 Heparin Sodium (Porcine) (Heparin 5000 units/ml) 5,000 units EVERY 12 HOURS SUBQ 05/25/20 21:00 07/09/20 20:59 06/06/20 08:32 Lansoprazole (Prevacid) 30 mg BID ORAL 06/05/20 18:00 07/05/20 17:59 06/06/20 08:31 Levothyroxine Sodium (Synthroid) 50 mcg DAILY@0630 ORAL 05/14/20 06:30 06/13/20 06:29 06/06/20 06:22 Polyethylene Glycol (Miralax) 17 gm BEDTIME ORAL 05/25/20 21:00 06/24/20 20:59 06/05/20 22:03 Quetiapine Fumarate (SEROqueL) 50 mg Q12HR ORAL 05/24/20 21:00 07/08/20 20:59 06/06/20 08:30 Lei Chan MD Jun 06, 2020 15:47
[2020-06-06 16:00] VITALS: BP 112/69
[2020-06-06 20:00] VITALS: BP 145/41
[2020-06-06] MEDS: Dyna-Hex 2% Top Sol 2oz TOPIC SCH (20:39)
[2020-06-06] MEDS: Miralax 17gm pkt ORAL SCH (21:16)
--- NOTE | 2020-06-06 22:40 | General Progress Note ---
Subjective ROS Limited/Unobtainable: Yes Allergies: Coded Allergies: LITHIUM (Verified Allergy, Unknown, 02/07/19) Objective Last 24 Hour Vital Signs Date Time Temp Pulse Resp B/P (MAP) Pulse Ox O2 Delivery O2 Flow Rate FiO2 06/06/20 16:00 98.7 59 20 112/69 (83) 95 06/06/20 16:00 55 06/06/20 12:00 73 06/06/20 12:00 96.8 76 19 120/81 (94) 98 06/06/20 09:00 Venturi Mask 10.0 06/06/20 08:00 63 06/06/20 08:00 96.7 67 20 118/61 (80) 97 06/06/20 04:00 96.4 66 20 116/41 (66) 98 06/06/20 04:00 62 06/06/20 00:00 96.4 62 20 123/49 (73) 97 06/06/20 00:00 68 Intake and Output 06/05/20 06/06/20 19:00 07:00 Intake Total 300 ml Balance 300 ml Intake Oral 300 ml # Voids 1 # Bowel Movements 1 Laboratory Tests 06/06/20 04:00: White Blood Count 5.0, Red Blood Count 2.88L, Hemoglobin 9.3L, Hematocrit 28.1L, Mean Corpuscular Volume 98, Mean Corpuscular Hemoglobin 32.2H, Mean Corpuscular Hemoglobin Concent 33.0, Red Cell Distribution Width 17.0H, Platelet Count 200, Mean Platelet Volume 6.8, Neutrophils (%) (Auto) 57.7, Lymphocytes (%) (Auto) 32.1, Monocytes (%) (Auto) 6.7, Eosinophils (%) (Auto) 2.5, Basophils (%) (Auto) 0.9, Sodium Level 141, Potassium Level 3.5, Chloride Level 99, Carbon Dioxide Level 39H, Blood Urea Nitrogen 30H, Creatinine 1.1, Estimat Glomerular Filtration Rate 47.8, Glucose Level 81, Calcium Level 9.3, Phosphorus Level 4.1, Magnesium Level 2.1, Total Bilirubin 1.4H, Direct Bilirubin 0.4H, Aspartate Amino Transf (AST/SGOT) 15, Alanine Aminotransferase (ALT/SGPT) 8L, Alkaline Phosphatase 49, C-Reactive Protein, Quantitative 1.3H, Pro-B-Type Natriuretic Peptide 1176H, Total Protein 7.4, Albumin 3.2L, Globulin 4.2 Height (Feet): 5 Height (Inches): 3.00 Weight (Pounds): 183 Assessment/Plan Problem List: (1) Anemia ICD Codes: D64.9 - Anemia, unspecified SNOMED: 033056262 (2) Hypercapnic respiratory failure ICD Codes: J96.92 - Respiratory failure, unspecified with hypercapnia SNOMED: 288838830 (3) COVID-19 ICD Codes: U07.1 - COVID-19 SNOMED: 093743445 (4) COPD (chronic obstructive pulmonary disease) ICD Codes: J44.9 - Chronic obstructive pulmonary disease, unspecified SNOMED: 27974379 (5) Psychosis ICD Codes: F29 - Unspecified psychosis not due to a substance or known physiological condition SNOMED: 50694543 (6) Hypoxia ICD Codes: R09.02 - Hypoxemia SNOMED: 540917453 (7) Renal failure (ARF), acute on chronic ICD Codes: N17.9 - Acute kidney failure, unspecified; N18.9 - Chronic kidney disease, unspecified SNOMED: 520033409 (8) CHF exacerbation ICD Codes: I50.9 - Heart failure, unspecified SNOMED: 050953520, 21939679156186 Status: progressing, unchanged, deteriorating Assessment/Plan: check lytes anemia improved afebrile no wheezing covid positive pna sepsis copd exac chf exac Dani Perera MD Jun 06, 2020 22:40
[2020-06-07] VITALS: BP 134/66
[2020-06-07 04:00] VITALS: BP 133/32
[2020-06-07 05:37] LABS: CALCIUM 9.2 MG/DL (8.5-10.1); CREATININE 1.2 MG/DL (0.55-1.30); POTASSIUM 3.5 MMOL/L (3.5-5.1)
[2020-06-07 08:00] VITALS: BP 138/65
--- NOTE | 2020-06-07 08:51 | Diagnostic Imaging Report ---
EXAM: XR Chest, 1 View CLINICAL HISTORY: ABN CHST TECHNIQUE: Frontal view of the chest. COMPARISON: 05/31/20 FINDINGS: Lungs: There are improving mild bilateral pulmonary infiltrates. Pleural space: Unremarkable. No pneumothorax. Heart: There is unchanged mild cardiomegaly. Mediastinum: Unremarkable. Bones/joints: Unremarkable. IMPRESSION: There are improving mild bilateral pulmonary infiltrates.
[2020-06-07] MEDS: Heparin 5000 units/ml inj SUBQ SCH ×2 (09:12→20:23)
[2020-06-07] MEDS: Docusate 100mg/10ml Liq ORAL SCH ×2 (09:13→17:10)
--- NOTE | 2020-06-07 11:40 | Pulmonology Progress Note ---
Subjective ROS Limited/Unobtainable: Yes Interval Events: none major reported per nursing Constitutional: Denies: fever HEENT: Repors: no symptoms Respiratory: Reports: no symptoms Cardiovascular: Reports: no symptoms Gastrointestinal/Abdominal: Reports: no symptoms Genitourinary: Reports: no symptoms Allergies: Coded Allergies: LITHIUM (Verified Allergy, Unknown, 02/07/19) Objective Last 24 Hour Vital Signs Date Time Temp Pulse Resp B/P (MAP) Pulse Ox O2 Delivery O2 Flow Rate FiO2 06/07/20 09:00 Venturi Mask 10.0 06/07/20 08:00 98.1 65 18 138/65 (89) 98 06/07/20 08:00 56 06/07/20 04:00 65 06/07/20 04:00 96.8 63 20 133/32 (65) 99 06/07/20 00:00 56 06/07/20 00:00 97.7 65 20 134/66 (88) 98 06/06/20 21:00 Venturi Mask 10.0 06/06/20 20:00 97.9 69 20 145/41 (75) 95 06/06/20 20:00 60 06/06/20 16:00 98.7 59 20 112/69 (83) 95 06/06/20 16:00 55 06/06/20 12:00 73 06/06/20 12:00 96.8 76 19 120/81 (94) 98 l Intake and Output 06/06/20 06/07/20 19:00 07:00 Intake Total 140 ml Output Total 1200 ml Balance -1060 ml Intake Oral 140 ml Output Urine Total 1200 ml # Voids 3 2 # Bowel Movements 12 General Appearance: no acute distress HEENT: normocephalic Respiratory: no respiratory distress, decreased breath sounds Cardiovascular: normal rate Abdomen: soft, non tender, other - obese, NG tube Extremities: other - b/l 2+ pitting edema Neurologic: disoriented Laboratory Tests 06/07/20 04:15: Sodium Level 137, Potassium Level 3.5, Chloride Level 98, Carbon Dioxide Level 38H, Anion Gap 1L, Blood Urea Nitrogen 42H, Creatinine 1.2, Estimat Glomerular Filtration Rate 43.3, Glucose Level 87, Calcium Level 9.2 Current Medications Medications (Trade) Dose Ordered Sig/Angie Route PRN Reason Start Time Stop Time Status Last Admin Dose Admin Acetaminophen (Tylenol) 650 mg Q6H PRN NG Fever >100.5 05/14/20 21:00 06/13/20 20:59 05/14/20 21:10 Acetaminophen (Tylenol) 650 mg Q6H PRN NG Mild Pain (Pain Scale 1-3) 05/14/20 21:00 06/13/20 20:59 05/17/20 11:06 Chlorhexidine Gluconate (Ruba-Hex 2%) 1 applic DAILY@2000 TOPIC 05/31/20 20:00 08/29/20 19:59 06/06/20 20:39 Clonidine HCl (Catapres Tab) 0.1 mg Q4H PRN ORAL sbp>170 05/11/20 17:15 08/09/20 17:14 Docusate Sodium (Colace) 100 mg TWICE A DAY ORAL 06/05/20 09:00 07/05/20 08:59 06/07/20 09:13 Furosemide (Lasix) 40 mg EVERY 12 HOURS IV 05/30/20 09:30 06/29/20 09:29 06/07/20 09:13 Haloperidol Lactate (Haldol) 5 mg Q6H PRN IM Agitation 05/13/20 20:45 06/27/20 20:44 05/28/20 02:40 Heparin Sodium (Porcine) (Heparin 5000 units/ml) 5,000 units EVERY 12 HOURS SUBQ 05/25/20 21:00 07/09/20 20:59 06/07/20 09:12 Lansoprazole (Prevacid) 30 mg BID ORAL 06/05/20 18:00 07/05/20 17:59 06/07/20 09:13 Levothyroxine Sodium (Synthroid) 50 mcg DAILY@0630 ORAL 05/14/20 06:30 06/13/20 06:29 06/06/20 06:22 Polyethylene Glycol (Miralax) 17 gm BEDTIME ORAL 05/25/20 21:00 06/24/20 20:59 06/06/20 21:16 Quetiapine Fumarate (SEROqueL) 50 mg Q12HR ORAL 05/24/20 21:00 07/08/20 20:59 06/07/20 09:13 Assessment/Plan Assessment/Plan 1. Bilateral COVID-19 multilobar pneumonia. - s/p ETT - Afebrile - s/p Azithromycin, Ceftriaxone, dexamethasone - s/p remdesivir - CXR 05/31 Patchy bilateral airspace consolidations, consistent with multifocal infiltrate, similar in appearance to previous study from 05/30; Stable, small bilateral pleural effusions. - COVID-19 PCR 06/02 inconclusive result 2. Hx of COPD. 3. Schizophrenia/psychosis - On haloperidol per Dr. Hernandez; refusing all PO medications 4. Hypoxia. -Now on 10L/min via Ventimask; ABG better; saturating better - X-ray chest done today shows significantly improved bilateral pulmonary infiltrates - on Lasix 40 mg IV BID; - off Diamox - recommend continues diuresis with ongoing BUN/Cr monitoring 5. Anemia 6. SSS - plan for pacer noted; per cardio DVT ppx Sincere Myers MD Jun 07, 2020 11:40
--- NOTE | 2020-06-07 11:55 | Infectious Diseases Prog Note ---
Assessment/Plan Assessment/Plan IMPRESSION: COVID-19 disease, Acute respiratory failure, COPD, Diastolic CHF, Mitral valve regurgitation, Anemia, Parkinson disease, schizoaffective disorder, Dementia, Obstructive sleep apnea, Hypothyroidism. 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 test : inconclusive Waiting for repeact COVID19 test Subjective ROS Limited/Unobtainable: Yes Constitutional: Denies: fever Allergies: Coded Allergies: LITHIUM (Verified Allergy, Unknown, 02/07/19) Objective Last 24 Hour Vital Signs Date Time Temp Pulse Resp B/P (MAP) Pulse Ox O2 Delivery O2 Flow Rate FiO2 06/07/20 09:00 Venturi Mask 10.0 06/07/20 08:00 98.1 65 18 138/65 (89) 98 06/07/20 08:00 56 06/07/20 04:00 65 06/07/20 04:00 96.8 63 20 133/32 (65) 99 06/07/20 00:00 56 06/07/20 00:00 97.7 65 20 134/66 (88) 98 06/06/20 21:00 Venturi Mask 10.0 06/06/20 20:00 97.9 69 20 145/41 (75) 95 06/06/20 20:00 60 06/06/20 16:00 98.7 59 20 112/69 (83) 95 06/06/20 16:00 55 06/06/20 12:00 73 06/06/20 12:00 96.8 76 19 120/81 (94) 98 Height (Feet): 5 Height (Inches): 3.00 Weight (Pounds): 183 General Appearance: no acute distress HEENT: mucous membranes moist Respiratory/Chest: other - on room air oxygen Cardiovascular: normal rate Abdomen: soft, non tender Extremities: no edema Neurologic/Psychiatric: other - sleeping Laboratory Tests Test 06/07/20 04:15 Sodium Level 137 MMOL/L (136-145) Potassium Level 3.5 MMOL/L (3.5-5.1) Chloride Level 98 MMOL/L (98-107) Carbon Dioxide Level 38 MMOL/L (21-32) H Anion Gap 1 mmol/L (5-15) L Blood Urea Nitrogen 42 mg/dL (7-18) H Creatinine 1.2 MG/DL (0.55-1.30) Estimat Glomerular Filtration Rate 43.3 mL/min (>60) Glucose Level 87 MG/DL (74-106) Calcium Level 9.2 MG/DL (8.5-10.1) Current Medications Medications (Trade) Dose Ordered Sig/Angie Route PRN Reason Start Time Stop Time Status Last Admin Dose Admin Acetaminophen (Tylenol) 650 mg Q6H PRN NG Fever >100.5 05/14/20 21:00 06/13/20 20:59 05/14/20 21:10 Acetaminophen (Tylenol) 650 mg Q6H PRN NG Mild Pain (Pain Scale 1-3) 05/14/20 21:00 06/13/20 20:59 05/17/20 11:06 Chlorhexidine Gluconate (Ruba-Hex 2%) 1 applic DAILY@1999 TOPIC 05/31/20 20:00 08/29/20 19:59 06/06/20 20:39 Clonidine HCl (Catapres Tab) 0.1 mg Q4H PRN ORAL sbp>170 05/11/20 17:15 08/09/20 17:14 Docusate Sodium (Colace) 100 mg TWICE A DAY ORAL 06/05/20 09:00 07/05/20 08:59 06/07/20 09:13 Furosemide (Lasix) 40 mg EVERY 12 HOURS IV 05/30/20 09:30 06/29/20 09:29 06/07/20 09:13 Haloperidol Lactate (Haldol) 5 mg Q6H PRN IM Agitation 05/13/20 20:45 06/27/20 20:44 05/28/20 02:40 Heparin Sodium (Porcine) (Heparin 5000 units/ml) 5,000 units EVERY 12 HOURS SUBQ 05/25/20 21:00 07/09/20 20:59 06/07/20 09:12 Lansoprazole (Prevacid) 30 mg BID ORAL 06/05/20 18:00 07/05/20 17:59 06/07/20 09:13 Levothyroxine Sodium (Synthroid) 50 mcg DAILY@0630 ORAL 05/14/20 06:30 06/13/20 06:29 06/06/20 06:22 Polyethylene Glycol (Miralax) 17 gm BEDTIME ORAL 05/25/20 21:00 06/24/20 20:59 06/06/20 21:16 Quetiapine Fumarate (SEROqueL) 50 mg Q12HR ORAL 05/24/20 21:00 07/08/20 20:59 06/07/20 09:13 Lei Chan MD Jun 07, 2020 11:55
[2020-06-07 12:00] VITALS: BP 138/55
--- NOTE | 2020-06-07 13:49 | Surgery Progress Note ---
Surgery Progress Note Subjective Additional Comments on mask arms stable labs noted imaging reviewed Objective Last 24 Hour Vital Signs Date Time Temp Pulse Resp B/P (MAP) Pulse Ox O2 Delivery O2 Flow Rate FiO2 06/07/20 12:00 97.7 68 20 138/55 (82) 97 06/07/20 12:00 63 06/07/20 09:00 Venturi Mask 10.0 06/07/20 08:00 98.1 65 18 138/65 (89) 98 06/07/20 08:00 56 06/07/20 04:00 65 06/07/20 04:00 96.8 63 20 133/32 (65) 99 06/07/20 00:00 56 06/07/20 00:00 97.7 65 20 134/66 (88) 98 06/06/20 21:00 Venturi Mask 10.0 06/06/20 20:00 97.9 69 20 145/41 (75) 95 06/06/20 20:00 60 06/06/20 16:00 98.7 59 20 112/69 (83) 95 06/06/20 16:00 55 I&O Intake and Output 06/06/20 06/07/20 19:00 07:00 Intake Total 140 ml Output Total 1200 ml Balance -1060 ml Intake Oral 140 ml Output Urine Total 1200 ml # Voids 3 2 # Bowel Movements 12 Dressing: saturated Cardiovascular: RSR Respiratory: decreased breath sounds Abdomen: soft, non-tender, present bowel sounds, non-distended Extremities: no edema, no tenderness, no cyanosis Laboratory Tests Test 06/07/20 04:15 Sodium Level 137 MMOL/L (136-145) Potassium Level 3.5 MMOL/L (3.5-5.1) Chloride Level 98 MMOL/L (98-107) Carbon Dioxide Level 38 MMOL/L (21-32) H Anion Gap 1 mmol/L (5-15) L Blood Urea Nitrogen 42 mg/dL (7-18) H Creatinine 1.2 MG/DL (0.55-1.30) Estimat Glomerular Filtration Rate 43.3 mL/min (>60) Glucose Level 87 MG/DL (74-106) Calcium Level 9.2 MG/DL (8.5-10.1) Plan Problems: (1) Anemia (2) Hypercapnic respiratory failure Assessment & Plan: respiratory insufficiency requiring prolonged ventilatory support unable to wean vent safely after multiple attempts discussed with pcp. discussed with pulm discussed with patient guardian. patient unable to consent. no nok or poa. given critical care and condition not recommended to await court decision which during pandemic can take long time. medically necessary to proceed with trach in patients best interest. 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
--- NOTE | 2020-06-07 13:51 | Nephrology Progress Note ---
Assessment/Plan Problem List: (1) Renal failure (ARF), acute on chronic (2) Hypercapnic respiratory failure (3) CHF exacerbation (4) Anemia Assessment Azotemia/renal failure Acute respiratory failure most likely secondary to CHF, on mechanical ventilation History of COPD Hypertension Hyperlipemia Schizophrenia/psychosis Plan June 07: Stable renal parameters. Continue per consultants. Overall stable. June 06: Status quo. Remains on Venturi mask. Labs reviewed. Renal parameters stable. Continue per consultants. June 05: Lethargic. On Venturi mask. Labs reviewed. Returning bicarb. Continue to monitor ABG and electrolytes. Low potassium addressed. June 04: Remains on Venturi mask. No can panel done today. ABG results reviewed. Continue per pulmonary. June 03: Poor respiratory status. ABG noted. Patient hypoxic. Renal parameters somewhat stable. Continue per pulmonary. June 02: Labs reviewed. Low phosphorus replaced. Patient has periodic severe bradycardia. Continue per cardiology. June 01: Labs reviewed. Low magnesium replaced. Renal parameters stable. Hemoglobin level reasonable. Continue per consultants. May 31: Labs reviewed. Abnormal electrolytes at rest. Hemoglobin higher. Discussed with DARREL Cooper. Continue per consultants. May 30: Lab reviewed. Potassium and phosphorus replaced. Hemoglobin higher after transfusion. Continue per consultants. May 29: Lab reviewed. Patient anemic. Electrolyte abnormalities reviewed and addressed. Continue per consultants. Remains stable from renal standpoint of view. May 28: Patient was not transfused despite of my order since yesterday. Will defer transfusion to PMD/human resources intern. Patient remains stable from renal standpoint of view. Continue per consultants. Discussed with Marlene nursing charge in [place]. May 27: Remains on Venturi mask. Labs reviewed. Abnormal electrolytes addressed. Hemoglobin low. Will transfuse 1 unit of packed RBCs today May 26: On Venturi mask. Labs reviewed. Abnormal electrolytes addressed. Continue per consultants and pulmonary support. May 25: On Venturi mask. Lethargic. No labs drawn today. Will monitor renal parameters. Per orders. May 24: Remains extubated. Will start on diet with high alert for possible aspiration. Continue to monitor renal parameters. May 23: Continues to be extubated. On nonrebreathing mask. Labs reviewed. Renal parameters stable. Discussed with RN. Continue per current management. May 22: Now extubated on nonrebreathing mask. Labs reviewed. Renal parameters stable. Abnormal electrolytes addressed. Discussed with RN. May 21: Remains intubated. Labs reviewed. Abnormal electrolytes addressed. Discussed with RN. May 20: Remains intubated. Abnormal electrolyte noted on today's lab results and addressed. Continue per consultants. May 19: Patient remains intubated. Labs reviewed. Abnormal electrolytes addressed. Continue per current management. May 18: Patient seen in ICU. Remains intubated. Weaning is being tried. Discussed with RN. Labs reviewed. Abnormal electrolyte addressed. Continue per consultants. May 17: Labs reviewed. Remains intubated. Stable from renal standpoint of view. Continue weaning. Discussed with RN. May 16: Labs reviewed. Remains intubated. Remains full code. Stable from renal standpoint of view. Abnormal electrolytes addressed. May 15: Labs reviewed. Renal parameters stable. Discussed with RN. Patient remains intubated on ventilator and full code. Continue per consultants. May 14: Labs reviewed. Discussed with RN. Abnormal electrolyte addressed. Continue per current management. Patient seen in ICU. Discussed with RN. Today's labs pending. Patient remains on 6 mics of dopamine. Pulmonary support Monitor intake and output Monitor electrolytes Continue per consultants Per orders Subjective ROS Limited/Unobtainable: No Constitutional: Reports: malaise, weakness Objective Objective Last 24 Hour Vital Signs Date Time Temp Pulse Resp B/P (MAP) Pulse Ox O2 Delivery O2 Flow Rate FiO2 06/07/20 12:00 97.7 68 20 138/55 (82) 97 06/07/20 12:00 63 06/07/20 09:00 Venturi Mask 10.0 06/07/20 08:00 98.1 65 18 138/65 (89) 98 06/07/20 08:00 56 06/07/20 04:00 65 06/07/20 04:00 96.8 63 20 133/32 (65) 99 06/07/20 00:00 56 06/07/20 00:00 97.7 65 20 134/66 (88) 98 06/06/20 21:00 Venturi Mask 10.0 06/06/20 20:00 97.9 69 20 145/41 (75) 95 06/06/20 20:00 60 06/06/20 16:00 98.7 59 20 112/69 (83) 95 06/06/20 16:00 55 Intake and Output 06/06/20 06/07/20 18:59 06:59 Intake Total 140 ml Output Total 1200 ml Balance -1060 ml Intake Oral 140 ml Output Urine Total 1200 ml # Voids 3 2 # Bowel Movements 12 Laboratory Tests 06/07/20 04:15: Sodium Level 137, Potassium Level 3.5, Chloride Level 98, Carbon Dioxide Level 38H, Anion Gap 1L, Blood Urea Nitrogen 42H, Creatinine 1.2, Estimat Glomerular Filtration Rate 43.3, Glucose Level 87, Calcium Level 9.2 Height (Feet): 5 Height (Inches): 3.00 Weight (Pounds): 183 General Appearance: no apparent distress, lethargic EENT: other - On Venturi mask Cardiovascular: normal rate Respiratory/Chest: decreased breath sounds Abdomen: distended Bryan Ochoa MD Jun 07, 2020 13:51
[2020-06-07 16:00] VITALS: BP 132/58
[2020-06-07 20:00] VITALS: BP 134/94
[2020-06-07] MEDS: Dyna-Hex 2% Top Sol 2oz TOPIC SCH (20:22)
[2020-06-07] MEDS: Miralax 17gm pkt ORAL SCH (20:23)
--- NOTE | 2020-06-07 21:29 | Cardiac Electrophysiology PN ---
Assessment/Plan Assessment/Plan 1. Covid PNA and respiratory failure. S/P Remdesevir and Dexamethasone Self extubated on 14 liter venturi Mask Off Abx per ID. On Lasix [address] Myers 2. SSS with 8 pauses of more than 3 seconds including 9 and 10 second pauses off any QUEZADA or AVN blockers. Will need pacer consent from conservator/court and ID clearance 3. Hypotension. Off Dopamine.Tolerating Lasix. EF 55% 4. Schizophrenia and psychosis. 5. S/P MRSA & Klebsiella pneumonia treated DW RN Subjective Subjective Self extubated on 05/22/20 in Covid isolation S/P Left arm PICC line placement as has no iv access. Had multiple pauses of more than 3 seconds including a 4s and 7s and a 10 second pause at 1 AM on 05/31 Had pauses of 7, 8 and 6 seconds again 06/01/20 Conservator deferred authorization for PPM to court. Has positive blood Cx and ID clearance also pending pre pacer implant On 15 liter NRBFM No pauses overnight Objective Last 24 Hour Vital Signs Date Time Temp Pulse Resp B/P (MAP) Pulse Ox O2 Delivery O2 Flow Rate FiO2 06/07/20 16:00 97.2 69 20 132/58 (82) 95 06/07/20 16:00 71 06/07/20 12:00 97.7 68 20 138/55 (82) 97 06/07/20 12:00 63 06/07/20 09:00 Room Air 06/07/20 08:00 98.1 65 18 138/65 (89) 98 06/07/20 08:00 56 06/07/20 04:00 65 06/07/20 04:00 96.8 63 20 133/32 (65) 99 06/07/20 00:00 56 06/07/20 00:00 97.7 65 20 134/66 (88) 98 Intake and Output 06/06/20 06/07/20 19:00 07:00 Intake Total 140 ml Output Total 1200 ml Balance -1060 ml Intake Oral 140 ml Output Urine Total 1200 ml # Voids 3 2 # Bowel Movements 12 Laboratory Tests Test 06/07/20 04:15 Sodium Level 137 MMOL/L (136-145) Potassium Level 3.5 MMOL/L (3.5-5.1) Chloride Level 98 MMOL/L (98-107) Carbon Dioxide Level 38 MMOL/L (21-32) H Anion Gap 1 mmol/L (5-15) L Blood Urea Nitrogen 42 mg/dL (7-18) H Creatinine 1.2 MG/DL (0.55-1.30) Estimat Glomerular Filtration Rate 43.3 mL/min (>60) Glucose Level 87 MG/DL (74-106) Calcium Level 9.2 MG/DL (8.5-10.1) Objective HEAD AND NECK: Positive JVD. LUNGS: Decreased breath sounds. CARDIOVASCULAR: Regular S1 and S2 with no gallop. ABDOMEN: Obese. EXTREMITIES: Bilateral 2+ pitting edema. Cameron Davies MD Jun 07, 2020 21:29
--- NOTE | 2020-06-07 21:49 | General Progress Note ---
Subjective ROS Limited/Unobtainable: Yes Allergies: Coded Allergies: LITHIUM (Verified Allergy, Unknown, 02/07/19) Objective Last 24 Hour Vital Signs Date Time Temp Pulse Resp B/P (MAP) Pulse Ox O2 Delivery O2 Flow Rate FiO2 06/07/20 16:00 97.2 69 20 132/58 (82) 95 06/07/20 16:00 71 06/07/20 12:00 97.7 68 20 138/55 (82) 97 06/07/20 12:00 63 06/07/20 09:00 Room Air 06/07/20 08:00 98.1 65 18 138/65 (89) 98 06/07/20 08:00 56 06/07/20 04:00 65 06/07/20 04:00 96.8 63 20 133/32 (65) 99 06/07/20 00:00 56 06/07/20 00:00 97.7 65 20 134/66 (88) 98 Intake and Output 06/06/20 06/07/20 19:00 07:00 Intake Total 140 ml Output Total 1200 ml Balance -1060 ml Intake Oral 140 ml Output Urine Total 1200 ml # Voids 3 2 # Bowel Movements 12 Laboratory Tests 06/07/20 04:15: Sodium Level 137, Potassium Level 3.5, Chloride Level 98, Carbon Dioxide Level 38H, Anion Gap 1L, Blood Urea Nitrogen 42H, Creatinine 1.2, Estimat Glomerular Filtration Rate 43.3, Glucose Level 87, Calcium Level 9.2 Height (Feet): 5 Height (Inches): 3.00 Weight (Pounds): 183 Assessment/Plan Problem List: (1) Anemia ICD Codes: D64.9 - Anemia, unspecified SNOMED: 482136382 (2) Hypercapnic respiratory failure ICD Codes: J96.92 - Respiratory failure, unspecified with hypercapnia SNOMED: 954571011 (3) COVID-19 ICD Codes: U07.1 - COVID-19 SNOMED: 372570634 (4) COPD (chronic obstructive pulmonary disease) ICD Codes: J44.9 - Chronic obstructive pulmonary disease, unspecified SNOMED: 91254422 (5) Psychosis ICD Codes: F29 - Unspecified psychosis not due to a substance or known physiological condition SNOMED: 43195444 (6) Hypoxia ICD Codes: R09.02 - Hypoxemia SNOMED: 320114058 (7) Renal failure (ARF), acute on chronic ICD Codes: N17.9 - Acute kidney failure, unspecified; N18.9 - Chronic kidney d isease, unspecified SNOMED: 488354640 (8) CHF exacerbation ICD Codes: I50.9 - Heart failure, unspecified SNOMED: 470305662, 12491441777223 Status: progressing, unchanged, deteriorating Assessment/Plan: on oxygen psych patient check h/h covid positive pna sepsis copd exac chf exac Dani Perera MD Jun 07, 2020 21:49
[2020-06-08] VITALS: BP 111/43
[2020-06-08 04:00] VITALS: BP 114/51
[2020-06-08 05:30] LABS: CALCIUM 9.4 MG/DL (8.5-10.1); CREATININE 1.3 MG/DL (0.55-1.30); POTASSIUM 3.3 MMOL/L (3.5-5.1)
[2020-06-08 08:00] VITALS: BP 136/65
[2020-06-08] MEDS: Docusate 100mg/10ml Liq ORAL SCH ×2 (08:04→18:15)
[2020-06-08] MEDS: Heparin 5000 units/ml inj SUBQ SCH ×2 (08:05→21:00)
--- NOTE | 2020-06-08 09:27 | Hematology/Onc Progress Note ---
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 ( combination of moderate aortic regurgitation and severe mitral regurgitation) --> diuresis as per cards --> lasix last time # Severe ascending aortic dilatation --> per shannan, Dr Davies # Hypertension # Parkinson disease # Hyperlipidemia # Hypothyroidism # Dementia # Obesity # Schizophrenia --> as per [facility] --> restraints # Dvt ppx heparin sq Appreciate energy consultant care and alexei Rn Subjective Constitutional: Denies: no symptoms, chills, fever, malaise, weakness, other HEENT: Denies: no symptoms, eye pain, blurred vision, tearing, double vision, ear pain, ear discharge, nose pain, nose congestion, throat pain, throat swelling, mouth pain, mouth swelling, other Cardiovascular: Denies: no symptoms, chest pain, edema, irregular heart rate, lightheadedness, palpitations, syncope, other Gastrointestinal/Abdominal: Denies: no symptoms, abdomen distended, abdominal pain, black stools, tarry stools, blood in stool, constipated, diarrhea, difficulty swallowing, nausea, poor appetite, poor fluid intake, rectal bleeding, vomiting, other Genitourinary: Denies: no symptoms, burning, discharge, frequency, flank pain, hematuria, incontinence, pain, urgency, other Endocrine: Denies: no symptoms, excessive sweating, flushing, intolerance to cold, intolerance to heat, increased hunger, increased thirst, increased urine, unexplained weight gain, unexplained weight loss, other Allergies: Coded Allergies: LITHIUM (Verified Allergy, Unknown, 02/07/19) Subjective 06/01 nonrebreather, 15L, some mild pain in back, chest, no night sweats 06/02 remains on nonrebreather, labs are noted, no bleeding or night sweats 06/03 labs reviewed, meds noted, nonrebreather, c02 was elevated, to inform pulm 06/04 labs reviewed, meds noted, on NR, no night sweats, meds noted 06/05 is on 15lnc venturi mask, is covid iso, labs noted 06/06 labs reviewed, on venturi mask, on b/l soft wrists, meds noted 06/08 labs reviewed, on nc, no bleeding, with picc line, cbc ordered Objective Objective Current Medications Medications (Trade) Dose Ordered Sig/Angie Route PRN Reason Start Time Stop Time Status Last Admin Dose Admin Acetaminophen (Tylenol) 650 mg Q6H PRN NG Fever >100.5 05/14/20 21:00 06/13/20 20:59 05/14/20 21:10 Acetaminophen (Tylenol) 650 mg Q6H PRN NG Mild Pain (Pain Scale 1-3) 05/14/20 21:00 06/13/20 20:59 05/17/20 11:06 Chlorhexidine Gluconate (Ruba-Hex 2%) 1 applic DAILY@2000 TOPIC 05/31/20 20:00 08/29/20 19:59 06/07/20 20:22 Clonidine HCl (Catapres Tab) 0.1 mg Q4H PRN ORAL sbp>170 05/11/20 17:15 08/09/20 17:14 Docusate Sodium (Colace) 100 mg TWICE A DAY ORAL 06/05/20 09:00 07/05/20 08:59 06/08/20 08:04 Furosemide (Lasix) 40 mg EVERY 12 HOURS IV 05/30/20 09:30 06/29/20 09:29 06/08/20 08:03 Haloperidol Lactate (Haldol) 5 mg Q6H PRN IM Agitation 05/13/20 20:45 06/27/20 20:44 05/28/20 02:40 Heparin Sodium (Porcine) (Heparin 5000 units/ml) 5,000 units EVERY 12 HOURS SUBQ 05/25/20 21:00 07/09/20 20:59 06/08/20 08:05 Lansoprazole (Prevacid) 30 mg BID ORAL 06/05/20 18:00 07/05/20 17:59 06/08/20 08:04 Levothyroxine Sodium (Synthroid) 50 mcg DAILY@0630 ORAL 05/14/20 06:30 06/13/20 06:29 06/06/20 06:22 Polyethylene Glycol (Miralax) 17 gm BEDTIME ORAL 05/25/20 21:00 06/24/20 20:59 06/06/20 21:16 Quetiapine Fumarate (SEROqueL) 50 mg Q12HR ORAL 05/24/20 21:00 07/08/20 20:59 06/08/20 08:04 Last 24 Hour Vital Signs Date Time Temp Pulse Resp B/P (MAP) Pulse Ox O2 Delivery O2 Flow Rate FiO2 06/08/20 09:00 Nasal Cannula 3.0 06/08/20 08:46 98 Nasal Cannula 3.0 32 06/08/20 08:00 98.2 68 20 136/65 (88) 94 06/08/20 08:00 65 06/08/20 04:00 77 06/08/20 04:00 97.1 72 20 114/51 (72) 93 06/08/20 00:00 59 06/08/20 00:00 76.9 61 20 111/43 (65) 94 06/07/20 21:00 Room Air 10.0 06/07/20 20:00 61 06/07/20 20:00 97.4 74 20 134/94 (107) 94 06/07/20 16:00 97.2 69 20 132/58 (82) 95 06/07/20 16:00 71 06/07/20 12:00 97.7 68 20 138/55 (82) 97 06/07/20 12:00 63 06/07/20 09:00 Room Air 06/07/20 08:00 98.1 65 18 138/65 (89) 98 06/07/20 08:00 56 06/07/20 04:00 65 06/07/20 04:00 96.8 63 20 133/32 (65) 99 06/07/20 00:00 56 06/07/20 00:00 97.7 65 20 134/66 (88) 98 06/06/20 21:00 Venturi Mask 10.0 06/06/20 20:00 97.9 69 20 145/41 (75) 95 06/06/20 20:00 60 06/06/20 16:00 98.7 59 20 112/69 (83) 95 06/06/20 16:00 55 06/06/20 12:00 73 06/06/20 12:00 96.8 76 19 120/81 (94) 98 Intake and Output 06/07/20 06/08/20 19:00 07:00 Intake Total 360 ml 250 ml Balance 360 ml 250 ml Intake Oral 360 ml 250 ml # Voids 3 2 # Bowel Movements 11 11 Labs Test 06/06/20 04:00 06/07/20 04:15 06/08/20 04:00 White Blood Count 5.0 K/UL (4.8-10.8) Red Blood Count 2.88 M/UL (4.20-5.40) Hemoglobin 9.3 G/DL (12.0-16.0) Hematocrit 28.1 % (37.0-47.0) Mean Corpuscular Volume 98 FL (80-99) Mean Corpuscular Hemoglobin 32.2 PG (27.0-31.0) Mean Corpuscular Hemoglobin Concent 33.0 G/DL (32.0-36.0) Red Cell Distribution Width 17.0 % (11.6-14.8) Platelet Count 200 K/UL (150-450) Mean Platelet Volume 6.8 FL (6.5-10.1) Neutrophils (%) (Auto) 57.7 % (45.0-75.0) Lymphocytes (%) (Auto) 32.1 % (20.0-45.0) Monocytes (%) (Auto) 6.7 % (1.0-10.0) Eosinophils (%) (Auto) 2.5 % (0.0-3.0) Basophils (%) (Auto) 0.9 % (0.0-2.0) Sodium Level 141 MMOL/L (136-145) 137 MMOL/L (136-145) 140 MMOL/L (136-145) Potassium Level 3.5 MMOL/L (3.5-5.1) 3.5 MMOL/L (3.5-5.1) 3.3 MMOL/L (3.5-5.1) Chloride Level 99 MMOL/L (98-107) 98 MMOL/L (98-107) 100 MMOL/L (98-107) Carbon Dioxide Level 39 MMOL/L (21-32) 38 MMOL/L (21-32) 36 MMOL/L (21-32) Blood Urea Nitrogen 30 mg/dL (7-18) 42 mg/dL (7-18) 50 mg/dL (7-18) Creatinine 1.1 MG/DL (0.55-1.30) 1.2 MG/DL (0.55-1.30) 1.3 MG/DL (0.55-1.30) Estimat Glomerular Filtration Rate 47.8 mL/min (>60) 43.3 mL/min (>60) 39.4 mL/min (>60) Glucose Level 81 MG/DL (74-106) 87 MG/DL (74-106) 85 MG/DL (74-106) Calcium Level 9.3 MG/DL (8.5-10.1) 9.2 MG/DL (8.5-10.1) 9.4 MG/DL (8.5-10.1) Phosphorus Level 4.1 MG/DL (2.5-4.9) Magnesium Level 2.1 MG/DL (1.8-2.4) Total Bilirubin 1.4 MG/DL (0.2-1.0) Direct Bilirubin 0.4 MG/DL (0.0-0.3) Aspartate Amino Transf (AST/SGOT) 15 U/L (15-37) Alanine Aminotransferase (ALT/SGPT) 8 U/L (12-78) Alkaline Phosphatase 49 U/L (46-116) C-Reactive Protein, Quantitative 1.3 mg/dL (0.00-0.90) Pro-B-Type Natriuretic Peptide 1176 pg/mL (0-125) Total Protein 7.4 G/DL (6.4-8.2) Albumin 3.2 G/DL (3.4-5.0) Globulin 4.2 g/dL Anion Gap 1 mmol/L (5-15) 5 mmol/L (5-15) Height (Feet): 5 Height (Inches): 3.00 Weight (Pounds): 183 Objective Physical Exam: Vitals: reviewed General: NAD HEENT: nc, at Neck: supple Chest: decreased breath sounds bilaterally, crackles+++ 15L NRM Cardiovascular: RRR, no s3, s4 Abdomen: soft, nontender, nd Extremities: 1-2 + edema Neuro: nonverbal Frank Escobar MD Jun 08, 2020 09:27
--- NOTE | 2020-06-08 10:06 | Pulmonology Progress Note ---
Subjective ROS Limited/Unobtainable: Yes Interval Events: none major reported per nursing Constitutional: Denies: fever HEENT: Repors: no symptoms Respiratory: Reports: no symptoms Cardiovascular: Reports: no symptoms Gastrointestinal/Abdominal: Reports: no symptoms Genitourinary: Reports: no symptoms Allergies: Coded Allergies: LITHIUM (Verified Allergy, Unknown, 02/07/19) Objective Last 24 Hour Vital Signs Date Time Temp Pulse Resp B/P (MAP) Pulse Ox O2 Delivery O2 Flow Rate FiO2 06/08/20 09:00 Nasal Cannula 3.0 06/08/20 08:46 98 Nasal Cannula 3.0 32 06/08/20 08:00 98.2 68 20 136/65 (88) 94 06/08/20 08:00 65 06/08/20 04:00 77 06/08/20 04:00 97.1 72 20 114/51 (72) 93 06/08/20 00:00 59 06/08/20 00:00 76.9 61 20 111/43 (65) 94 06/07/20 21:00 Room Air 10.0 06/07/20 20:00 61 06/07/20 20:00 97.4 74 20 134/94 (107) 94 06/07/20 16:00 97.2 69 20 132/58 (82) 95 06/07/20 16:00 71 06/07/20 12:00 97.7 68 20 138/55 (82) 97 06/07/20 12:00 63 Intake and Output 06/07/20 06/08/20 19:00 07:00 Intake Total 360 ml 250 ml Balance 360 ml 250 ml Intake Oral 360 ml 250 ml # Voids 3 2 # Bowel Movements 11 11 General Appearance: no acute distress HEENT: normocephalic Respiratory: no respiratory distress, decreased breath sounds Cardiovascular: normal rate Abdomen: soft, non tender, other - obese, NG tube Extremities: other - b/l 2+ pitting edema Neurologic: disoriented Laboratory Tests 06/08/20 04:00: Sodium Level 140, Potassium Level 3.3L, Chloride Level 100, Carbon Dioxide Level 36H, Anion Gap 5, Blood Urea Nitrogen 50H, Creatinine 1.3, Estimat Glomerular Filtration Rate 39.4, Glucose Level 85, Calcium Level 9.4 Current Medications Medications (Trade) Dose Ordered Sig/Angie Route PRN Reason Start Time Stop Time Status Last Admin Dose Admin Acetaminophen (Tylenol) 650 mg Q6H PRN NG Fever >100.5 05/14/20 21:00 06/13/20 20:59 05/14/20 21:10 Acetaminophen (Tylenol) 650 mg Q6H PRN NG Mild Pain (Pain Scale 1-3) 05/14/20 21:00 06/13/20 20:59 05/17/20 11:06 Chlorhexidine Gluconate (Ruba-Hex 2%) 1 applic DAILY@2000 TOPIC 05/31/20 20:00 08/29/20 19:59 06/07/20 20:22 Clonidine HCl (Catapres Tab) 0.1 mg Q4H PRN ORAL sbp>170 05/11/20 17:15 08/09/20 17:14 Docusate Sodium (Colace) 100 mg TWICE A DAY ORAL 06/05/20 09:00 07/05/20 08:59 06/08/20 08:04 Furosemide (Lasix) 40 mg EVERY 12 HOURS IV 05/30/20 09:30 06/29/20 09:29 06/08/20 08:03 Haloperidol Lactate (Haldol) 5 mg Q6H PRN IM Agitation 05/13/20 20:45 06/27/20 20:44 05/28/20 02:40 Heparin Sodium (Porcine) (Heparin 5000 units/ml) 5,000 units EVERY 12 HOURS SUBQ 05/25/20 21:00 07/09/20 20:59 06/08/20 08:05 Lansoprazole (Prevacid) 30 mg BID ORAL 06/05/20 18:00 07/05/20 17:59 06/08/20 08:04 Levothyroxine Sodium (Synthroid) 50 mcg DAILY@0630 ORAL 05/14/20 06:30 06/13/20 06:29 06/06/20 06:22 Polyethylene Glycol (Miralax) 17 gm BEDTIME ORAL 05/25/20 21:00 06/24/20 20:59 06/06/20 21:16 Potassium Chloride 100 ml @ 50 mls/hr ONCE IVPB 06/08/20 11:00 06/08/20 12:00 Quetiapine Fumarate (SEROqueL) 50 mg Q12HR ORAL 05/24/20 21:00 07/08/20 20:59 06/08/20 08:04 Assessment/Plan Assessment/Plan 1. Bilateral COVID-19 multilobar pneumonia. - s/p ETT - Afebrile - s/p Azithromycin, Ceftriaxone, dexamethasone - s/p remdesivir - CXR 05/31 Patchy bilateral airspace consolidations, consistent with multifocal infiltrate, similar in appearance to previous study from 05/30; Stable, small bilateral pleural effusions. - COVID-19 PCR 06/02 inconclusive result 2. Hx of COPD. 3. Schizophrenia/psychosis - On haloperidol per Dr. Hernandez; refusing all PO medications 4. Hypoxia. -Now on 3L/min via Ventimask; ABG better; saturating better - X-ray chest on 06/07 shows significantly improved bilateral pulmonary infiltrates - on Lasix 40 mg IV BID; will switch to PO - off Diamox - recommend continues diuresis with ongoing BUN/Cr monitoring 5. Anemia 6. SSS - plan for pacer noted; per cardio DVT ppx Sincere Myers MD Jun 08, 2020 10:06
[2020-06-08 12:00] VITALS: BP 117/31
[2020-06-08 12:37] LABS: BASOPHILS % (AUTO) 0.7 % (0.0-2.0); EOSINOPHILS % (AUTO) 2.5 % (0.0-3.0); HEMATOCRIT 27.6 % (37.0-47.0); HEMOGLOBIN 9.4 G/DL (12.0-16.0); LYMPHOCYTES % (AUTO) 30.8 % (20.0-45.0); MEAN CORPUSCULAR VOLUME 94 FL (80-99); MONOCYTES % (AUTO) 8.5 % (1.0-10.0); NEUTROPHILS % (AUTO) 57.5 % (45.0-75.0); PLATELET COUNT 235 K/UL (150-450); RED BLOOD COUNT 2.94 M/UL (4.20-5.40); RED CELL DISTRIBUTION WIDTH 17.1 % (11.6-14.8); WHITE BLOOD COUNT 5.6 K/UL (4.8-10.8)
--- NOTE | 2020-06-08 14:56 | Nephrology Progress Note ---
Assessment/Plan Problem List: (1) Renal failure (ARF), acute on chronic (2) Hypercapnic respiratory failure (3) CHF exacerbation (4) Anemia Assessment Azotemia/renal failure Acute respiratory failure most likely secondary to CHF, on mechanical ventilation History of COPD Hypertension Hyperlipemia Schizophrenia/psychosis Plan June 08: Labs reviewed. Low potassium addressed. Continue per consultants. June 07: Stable renal parameters. Continue per consultants. Overall stable. June 06: Status quo. Remains on Venturi mask. Labs reviewed. Renal parameters stable. Continue per consultants. June 05: Lethargic. On Venturi mask. Labs reviewed. Returning bicarb. Continue to monitor ABG and electrolytes. Low potassium addressed. June 04: Remains on Venturi mask. No can panel done today. ABG results reviewed. Continue per pulmonary. June 03: Poor respiratory status. ABG noted. Patient hypoxic. Renal parameters somewhat stable. Continue per pulmonary. June 02: Labs reviewed. Low phosphorus replaced. Patient has periodic severe bradycardia. Continue per cardiology. June 01: Labs reviewed. Low magnesium replaced. Renal parameters stable. Hemoglobin level reasonable. Continue per consultants. May 31: Labs reviewed. Abnormal electrolytes at rest. Hemoglobin higher. Discussed with DARREL Cooper. Continue per consultants. May 30: Lab reviewed. Potassium and phosphorus replaced. Hemoglobin higher after transfusion. Continue per consultants. May 29: Lab reviewed. Patient anemic. Electrolyte abnormalities reviewed and addressed. Continue per consultants. Remains stable from renal standpoint of view. May 28: Patient was not transfused despite of my order since yesterday. Will defer transfusion to PMD/alarm field technician. Patient remains stable from renal standpoint of view. Continue per consultants. Discussed with Marlene nursing charge in [place]. May 27: Remains on Venturi mask. Labs reviewed. Abnormal electrolytes addressed. Hemoglobin low. Will transfuse 1 unit of packed RBCs today May 26: On Venturi mask. Labs reviewed. Abnormal electrolytes addressed. Continue per consultants and pulmonary support. May 25: On Venturi mask. Lethargic. No labs drawn today. Will monitor renal parameters. Per orders. May 24: Remains extubated. Will start on diet with high alert for possible aspiration. Continue to monitor renal parameters. May 23: Continues to be extubated. On nonrebreathing mask. Labs reviewed. Renal parameters stable. Discussed with RN. Continue per current management. Douglas 10: Now extubated on nonrebreathing mask. Labs reviewed. Renal parameters stable. Abnormal electrolytes addressed. Discussed with RN. May 21: Remains intubated. Labs reviewed. Abnormal electrolytes addressed. Discussed with RN. May 20: Remains intubated. Abnormal electrolyte noted on today's lab results and addressed. Continue per consultants. May 19: Patient remains intubated. Labs reviewed. Abnormal electrolytes addressed. Continue per current management. May 18: Patient seen in ICU. Remains intubated. Weaning is being tried. Discussed with RN. Labs reviewed. Abnormal electrolyte addressed. Continue per consultants. May 17: Labs reviewed. Remains intubated. Stable from renal standpoint of view. Continue weaning. Discussed with RN. May 16: Labs reviewed. Remains intubated. Remains full code. Stable from renal standpoint of view. Abnormal electrolytes addressed. May 15: Labs reviewed. Renal parameters stable. Discussed with RN. Patient remains intubated on ventilator and full code. Continue per consultants. May 14: Labs reviewed. Discussed with RN. Abnormal electrolyte addressed. Continue per current management. Patient seen in ICU. Discussed with RN. Today's labs pending. Patient remains on 6 mics of dopamine. Pulmonary support Monitor intake and output Monitor electrolytes Continue per consultants Per orders Subjective ROS Limited/Unobtainable: No Constitutional: Reports: malaise, weakness Objective Objective Last 24 Hour Vital Signs Date Time Temp Pulse Resp B/P (MAP) Pulse Ox O2 Delivery O2 Flow Rate FiO2 06/08/20 12:00 51 06/08/20 12:00 97.2 59 20 117/31 (59) 97 06/08/20 09:00 Nasal Cannula 3.0 06/08/20 08:46 98 Nasal Cannula 3.0 32 06/08/20 08:00 98.2 68 20 136/65 (88) 94 06/08/20 08:00 65 06/08/20 04:00 77 06/08/20 04:00 97.1 72 20 114/51 (72) 93 06/08/20 00:00 59 06/08/20 00:00 76.9 61 20 111/43 (65) 94 06/07/20 21:00 Room Air 10.0 06/07/20 20:00 61 06/07/20 20:00 97.4 74 20 134/94 (107) 94 06/07/20 16:00 97.2 69 20 132/58 (82) 95 06/07/20 16:00 71 Intake and Output 06/07/20 06/08/20 19:00 07:00 Intake Total 360 ml 250 ml Balance 360 ml 250 ml Intake Oral 360 ml 250 ml # Voids 3 2 # Bowel Movements 11 11 Laboratory Tests 06/08/20 04:00: Sodium Level 140, Potassium Level 3.3L, Chloride Level 100, Carbon Dioxide Level 36H, Anion Gap 5, Blood Urea Nitrogen 50H, Creatinine 1.3, Estimat Glomerular Filtration Rate 39.4, Glucose Level 85, Calcium Level 9.4, Thyroid Stimulating Hormone (TSH) 59.218H 06/08/20 12:00: White Blood Count 5.6, Red Blood Count 2.94L, Hemoglobin 9.4L, Hematocrit 27.6L, Mean Corpuscular Volume 94, Mean Corpuscular Hemoglobin 32.0H, Mean Corpuscular Hemoglobin Concent 34.1, Red Cell Distribution Width 17.1H, Platelet Count 235, Mean Platelet Volume 7.2, Neutrophils (%) (Auto) 57.5, Lymphocytes (%) (Auto) 30.8, Monocytes (%) (Auto) 8.5, Eosinophils (%) (Auto) 2.5, Basophils (%) (Auto) 0.7 Height (Feet): 5 Height (Inches): 3.00 Weight (Pounds): 183 General Appearance: no apparent distress, lethargic EENT: other - On nasal cannula Cardiovascular: normal rate Respiratory/Chest: decreased breath sounds Abdomen: distended Bryan Ochoa MD Jun 08, 2020 14:56
[2020-06-08 16:00] VITALS: BP 114/47
--- NOTE | 2020-06-08 18:01 | Surgery Progress Note ---
Surgery Progress Note Subjective Symptoms: improved, tolerating diet, passing flatus, BM Objective Last 24 Hour Vital Signs Date Time Temp Pulse Resp B/P (MAP) Pulse Ox O2 Delivery O2 Flow Rate FiO2 06/08/20 16:00 56 06/08/20 16:00 97.0 64 20 114/47 (69) 95 06/08/20 12:00 51 06/08/20 12:00 97.2 59 20 117/31 (59) 97 06/08/20 09:00 Nasal Cannula 3.0 06/08/20 08:46 98 Nasal Cannula 3.0 32 06/08/20 08:00 98.2 68 20 136/65 (88) 94 06/08/20 08:00 65 06/08/20 04:00 77 06/08/20 04:00 97.1 72 20 114/51 (72) 93 06/08/20 00:00 59 06/08/20 00:00 76.9 61 20 111/43 (65) 94 06/07/20 21:00 Room Air 10.0 06/07/20 20:00 61 06/07/20 20:00 97.4 74 20 134/94 (107) 94 I&O Intake and Output 06/07/20 06/08/20 18:59 06:59 Intake Total 360 ml 250 ml Balance 360 ml 250 ml Intake Oral 360 ml 250 ml # Voids 3 2 # Bowel Movements 11 11 Dressing: saturated Cardiovascular: RSR Respiratory: decreased breath sounds Abdomen: non-tender, present bowel sounds Extremities: no tenderness, no cyanosis Laboratory Tests Test 06/08/20 04:00 06/08/20 12:00 Sodium Level 140 MMOL/L (136-145) Potassium Level 3.3 MMOL/L (3.5-5.1) L Chloride Level 100 MMOL/L (98-107) Carbon Dioxide Level 36 MMOL/L (21-32) H Anion Gap 5 mmol/L (5-15) Blood Urea Nitrogen 50 mg/dL (7-18) H Creatinine 1.3 MG/DL (0.55-1.30) Estimat Glomerular Filtration Rate 39.4 mL/min (>60) Glucose Level 85 MG/DL (74-106) Calcium Level 9.4 MG/DL (8.5-10.1) Thyroid Stimulating Hormone (TSH) 59.218 uiU/mL (0.358-3.740) White Blood Count 5.6 K/UL (4.8-10.8) Red Blood Count 2.94 M/UL (4.20-5.40) L Hemoglobin 9.4 G/DL (12.0-16.0) L Hematocrit 27.6 % (37.0-47.0) L Mean Corpuscular Volume 94 FL (80-99) Mean Corpuscular Hemoglobin 32.0 PG (27.0-31.0) H Mean Corpuscular Hemoglobin Concent 34.1 G/DL (32.0-36.0) Red Cell Distribution Width 17.1 % (11.6-14.8) H Platelet Count 235 K/UL (150-450) Mean Platelet Volume 7.2 FL (6.5-10.1) Neutrophils (%) (Auto) 57.5 % (45.0-75.0) Lymphocytes (%) (Auto) 30.8 % (20.0-45.0) Monocytes (%) (Auto) 8.5 % (1.0-10.0) Eosinophils (%) (Auto) 2.5 % (0.0-3.0) Basophils (%) (Auto) 0.7 % (0.0-2.0) Plan Problems: (1) Anemia (2) Hypercapnic respiratory failure Assessment & Plan: respiratory insufficiency requiring prolonged ventilatory support unable to wean vent safely after multiple attempts discussed with pcp. discussed with pulm discussed with patient guardian. patient unable to consent. no nok or poa. given critical care and condition not recommended to await court decision which during pandemic can take long time. medically necessary to proceed with trach in patients best interest. 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
[2020-06-08] MEDS: Lactulose 20gm/30ml UDC ORAL SCH (18:15)
[2020-06-08 20:00] VITALS: BP 122/55
[2020-06-08] MEDS: Dyna-Hex 2% Top Sol 2oz TOPIC SCH (20:00)
[2020-06-08] MEDS: Miralax 17gm pkt ORAL SCH (21:00)
[2020-06-08] MEDS: QUEtiapine 200mg tab ORAL SCH ×2 (22:00→22:05)
--- NOTE | 2020-06-08 22:12 | General Progress Note ---
Subjective ROS Limited/Unobtainable: Yes Allergies: Coded Allergies: LITHIUM (Verified Allergy, Unknown, 02/07/19) Objective Last 24 Hour Vital Signs Date Time Temp Pulse Resp B/P (MAP) Pulse Ox O2 Delivery O2 Flow Rate FiO2 06/08/20 16:00 56 06/08/20 16:00 97.0 64 20 114/47 (69) 95 06/08/20 12:00 51 06/08/20 12:00 97.2 59 20 117/31 (59) 97 06/08/20 09:00 Nasal Cannula 3.0 06/08/20 08:46 98 Nasal Cannula 3.0 32 06/08/20 08:00 98.2 68 20 136/65 (88) 94 06/08/20 08:00 65 06/08/20 04:00 77 06/08/20 04:00 97.1 72 20 114/51 (72) 93 06/08/20 00:00 59 06/08/20 00:00 76.9 61 20 111/43 (65) 94 Intake and Output 06/07/20 06/08/20 19:00 07:00 Intake Total 360 ml 250 ml Balance 360 ml 250 ml Intake Oral 360 ml 250 ml # Voids 3 2 # Bowel Movements 11 11 Laboratory Tests 06/08/20 04:00: Sodium Level 140, Potassium Level 3.3L, Chloride Level 100, Carbon Dioxide Level 36H, Anion Gap 5, Blood Urea Nitrogen 50H, Creatinine 1.3, Estimat Glomerular Filtration Rate 39.4, Glucose Level 85, Calcium Level 9.4, Thyroid Stimulating Hormone (TSH) 59.218H 06/08/20 12:00: White Blood Count 5.6, Red Blood Count 2.94L, Hemoglobin 9.4L, Hematocrit 27.6L, Mean Corpuscular Volume 94, Mean Corpuscular Hemoglobin 32.0H, Mean Corpuscular Hemoglobin Concent 34.1, Red Cell Distribution Width 17.1H, Platelet Count 235, Mean Platelet Volume 7.2, Neutrophils (%) (Auto) 57.5, Lymphocytes (%) (Auto) 30.8, Monocytes (%) (Auto) 8.5, Eosinophils (%) (Auto) 2.5, Basophils (%) (Auto) 0.7 Height (Feet): 5 Height (Inches): 3.00 Weight (Pounds): 183 Assessment/Plan Problem List: (1) Anemia ICD Codes: D64.9 - Anemia, unspecified SNOMED: 203659582 (2) Hypercapnic respiratory failure ICD Codes: J96.92 - Respiratory failure, unspecified with hypercapnia SNOMED: 304362587 (3) COVID-19 ICD Codes: U07.1 - COVID-19 SNOMED: 655050804 (4) COPD (chronic obstructive pulmonary disease) ICD Codes: J44.9 - Chronic obstructive pulmonary disease, unspecified SNOMED: 67621358 (5) Psychosis ICD Codes: F29 - Unspecified psychosis not due to a substance or known physiological condition SNOMED: 22479576 (6) Hypoxia ICD Codes: R09.02 - Hypoxemia SNOMED: 753785476 (7) Renal failure (ARF), acute on chronic ICD Codes: N17.9 - Acute kidney failure, unspecified; N18.9 - Chronic kidney disease, unspecified SNOMED: 865142393 (8) CHF exacerbation ICD Codes: I50.9 - Heart failure, unspecified SNOMED: 392564328, [id number] Status: progressing, unchanged, deteriorating Assessment/Plan: constipation afebrile obesity no change covid positive pna sepsis copd exac chf exac Dani Perera MD Jun 08, 2020 22:12
[2020-06-09] VITALS: BP 105/50
--- NOTE | 2020-06-09 00:37 | Psychiatric Progress Note ---
Psychiatry Progress Note Psychiatry Progress Note Subjective the pt has waxing and waning o consciousness on restraints episodes agitation confused Medications Current Medications Medications (Trade) Dose Ordered Sig/Angie Route PRN Reason Start Time Stop Time Status Last Admin Dose Admin Acetaminophen (Tylenol) 650 mg Q6H PRN NG Fever >100.5 05/14/20 21:00 06/13/20 20:59 05/14/20 21:10 Acetaminophen (Tylenol) 650 mg Q6H PRN NG Mild Pain (Pain Scale 1-3) 05/14/20 21:00 06/13/20 20:59 05/17/20 11:06 Chlorhexidine Gluconate (Ruba-Hex 2%) 1 applic DAILY@1999 TOPIC 05/31/20 20:00 08/29/20 19:59 06/08/20 20:00 Clonidine HCl (Catapres Tab) 0.1 mg Q4H PRN ORAL sbp>170 05/11/20 17:15 08/09/20 17:14 Docusate Sodium (Colace) 100 mg TWICE A DAY ORAL 06/05/20 09:00 07/05/20 08:59 06/08/20 18:15 Furosemide (Lasix) 40 mg DAILY ORAL 06/09/20 09:00 07/09/20 08:59 Haloperidol Lactate (Haldol) 5 mg Q6H PRN IM Agitation 05/13/20 20:45 06/27/20 20:44 05/28/20 02:40 Heparin Sodium (Porcine) (Heparin 5000 units/ml) 5,000 units EVERY 12 HOURS SUBQ 05/25/20 21:00 07/09/20 20:59 06/08/20 21:00 Lactulose (Cephulac) 20 gm THREE TIMES A DAY ORAL 06/08/20 18:00 07/08/20 17:59 06/08/20 18:15 Lansoprazole (Prevacid) 30 mg BID ORAL 06/05/20 18:00 07/05/20 17:59 06/08/20 18:15 Levothyroxine Sodium (Synthroid) 50 mcg DAILY@0630 ORAL 05/14/20 06:30 06/13/20 06:29 06/06/20 06:22 Polyethylene Glycol (Miralax) 17 gm BEDTIME ORAL 05/25/20 21:00 06/24/20 20:59 06/06/20 21:16 Quetiapine Fumarate (SEROqueL) 50 mg Q12HR ORAL 06/08/20 22:00 07/23/20 21:59 Neurological/Psychiatric: Denies: no symptoms, anxiety, depressed, emotional problems, headache, numbness, paresthesia, pre-existing deficit, seizure, tingling, tremors, weakness, other Allergies: Coded Allergies: LITHIUM (Verified Allergy, Unknown, 02/07/19) Objective Data Height (Feet): 5 Height (Inches): 3.00 Weight (Pounds): 183 General Appearance: no apparent distress, lethargic Additional Comments: waxing and waning consciousness. Disoriented. Mood is neutral to agitation. Affect is flat. Thought process, there is paucity of thought process. Thought content, no suicidal or homicidal ideation. Cognition is impaired. Insight and judgment is impaired. Assessment/Plan Henderson I: Henderson I Acute toxic encephalopathy. Schizophrenia. Henderson II Deferred. Henderson III COVID-19. Henderson IV Low. Henderson V 20 PLAN: 1. Discontinue the IV Haldol. 2. Start the patient on Haldol IM. 3. The patient benefits from bilateral soft restraints. 4. Provide the patient with reality orientation. 5. Discussed with the nurse. Status: progressing, unchanged, deteriorating Status Narrative Henderson I Acute toxic encephalopathy. Schizophrenia. Henderson II Deferred. Henderson III COVID-19. Henderson IV Low. Henderson V 20 PLAN: 1. Discontinue the IV Haldol. 2. Start the patient on Haldol IM. 3. The patient benefits from bilateral soft restraints. 4. Provide the patient with reality orientation. 5. Discussed with the nurse. Assessment/Plan: Henderson I Acute toxic encephalopathy. Schizophrenia. Henderson II Deferred. Henderson III COVID-19. Henderson IV Low. Henderson V 20 PLAN: 1. Discontinue the IV Haldol. 2. Start the patient on Haldol IM. 3. The patient benefits from bilateral soft restraints. 4. Provide the patient with reality orientation. 5. Discussed with the nurse. Kiana Hernandez MD Jun 09, 2020 00:37
[2020-06-09 04:00] VITALS: BP 100/71
--- NOTE | 2020-06-09 06:39 | Hematology/Onc Progress Note ---
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 ( combination of moderate aortic regurgitation and severe mitral regurgitation) --> diuresis as per cards --> lasix last time # Severe ascending aortic dilatation --> per shannan, Dr Davies # Hypertension # Parkinson disease # Hyperlipidemia # Hypothyroidism # Dementia # Obesity # Schizophrenia --> as per [facility] --> restraints # Dvt ppx heparin sq Appreciate industry consultant care and alexei Rn Subjective Constitutional: Denies: no symptoms, chills, fever, malaise, weakness, other HEENT: Denies: no symptoms, eye pain, blurred vision, tearing, double vision, ear pain, ear discharge, nose pain, nose congestion, throat pain, throat swelling, mouth pain, mouth swelling, other Cardiovascular: Denies: no symptoms, chest pain, edema, irregular heart rate, lightheadedness, palpitations, syncope, other Respiratory: Denies: no symptoms, cough, shortness of breath, SOB with excertion, SOB at rest, sputum, wheezing, other Genitourinary: Denies: no symptoms, burning, discharge, frequency, flank pain, hematuria, incontinence, pain, urgency, other Neurologic/Psychiatric: Denies: no symptoms, anxiety, depressed, emotional problems, headache, numbness, paresthesia, pre-existing deficit, seizure, tingling, tremors, weakness, other Endocrine: Denies: no symptoms, excessive sweating, flushing, intolerance to cold, intolerance to heat, increased hunger, increased thirst, increased urine, unexplained weight gain, unexplained weight loss, other Hematologic/Lymphatic: Denies: no symptoms, anemia, easy bleeding, easy bruising, adenopathy, other Allergies: Coded Allergies: LITHIUM (Verified Allergy, Unknown, 02/07/19) Subjective 06/01 nonrebreather, 15L, some mild pain in back, chest, no night sweats 06/02 remains on nonrebreather, labs are noted, no bleeding or night sweats 06/03 labs reviewed, meds noted, nonrebreather, c02 was elevated, to inform pulm 06/04 labs reviewed, meds noted, on NR, no night sweats, meds noted 06/05 is on 15lnc venturi mask, is covid iso, labs noted 06/06 labs reviewed, on venturi mask, on b/l soft wrists, meds noted 06/08 labs reviewed, on nc, no bleeding, with picc line, cbc ordered 06/09 labs reviewed, confused, on 3l nc, no night sweats, meds reviewed Objective Objective Current Medications Medications (Trade) Dose Ordered Sig/Angie Route PRN Reason Start Time Stop Time Status Last Admin Dose Admin Acetaminophen (Tylenol) 650 mg Q6H PRN NG Fever >100.5 05/14/20 21:00 06/13/20 20:59 05/14/20 21:10 Acetaminophen (Tylenol) 650 mg Q6H PRN NG Mild Pain (Pain Scale 1-3) 05/14/20 21:00 06/13/20 20:59 05/17/20 11:06 Chlorhexidine Gluconate (Ruba-Hex 2%) 1 applic DAILY@1999 TOPIC 05/31/20 20:00 08/29/20 19:59 06/08/20 20:00 Clonidine HCl (Catapres Tab) 0.1 mg Q4H PRN ORAL sbp>170 05/11/20 17:15 08/09/20 17:14 Docusate Sodium (Colace) 100 mg TWICE A DAY ORAL 06/05/20 09:00 07/05/20 08:59 06/08/20 18:15 Furosemide (Lasix) 40 mg DAILY ORAL 06/09/20 09:00 07/09/20 08:59 Haloperidol Lactate (Haldol) 5 mg Q6H PRN IM Agitation 05/13/20 20:45 06/27/20 20:44 05/28/20 02:40 Heparin Sodium (Porcine) (Heparin 5000 units/ml) 5,000 units EVERY 12 HOURS SUBQ 05/25/20 21:00 07/09/20 20:59 06/08/20 21:00 Lactulose (Cephulac) 20 gm THREE TIMES A DAY ORAL 06/08/20 18:00 07/08/20 17:59 06/08/20 18:15 Lansoprazole (Prevacid) 30 mg BID ORAL 06/05/20 18:00 07/05/20 17:59 06/08/20 18:15 Levothyroxine Sodium (Synthroid) 50 mcg DAILY@0630 ORAL 05/14/20 06:30 06/13/20 06:29 06/06/20 06:22 Polyethylene Glycol (Miralax) 17 gm BEDTIME ORAL 05/25/20 21:00 06/24/20 20:59 06/06/20 21:16 Quetiapine Fumarate (SEROqueL) 50 mg Q12HR ORAL 06/08/20 22:00 07/23/20 21:59 Last 24 Hour Vital Signs Date Time Temp Pulse Resp B/P (MAP) Pulse Ox O2 Delivery O2 Flow Rate FiO2 06/09/20 04:00 97.3 67 20 100/71 (81) 97 06/09/20 04:00 58 06/09/20 00:00 97.0 80 20 105/50 (68) 95 06/09/20 00:00 71 06/08/20 21:00 Nasal Cannula 3.0 06/08/20 21:00 96 Nasal Cannula 3.0 32 06/08/20 20:00 57 06/08/20 20:00 97.7 65 20 122/55 (77) 96 06/08/20 16:00 56 06/08/20 16:00 97.0 64 20 114/47 (69) 95 06/08/20 12:00 51 06/08/20 12:00 97.2 59 20 117/31 (59) 97 06/08/20 09:00 Nasal Cannula 3.0 06/08/20 08:46 98 Nasal Cannula 3.0 32 06/08/20 08:00 98.2 68 20 136/65 (88) 94 06/08/20 08:00 65 06/08/20 04:00 77 06/08/20 04:00 97.1 72 20 114/51 (72) 93 06/08/20 00:00 59 06/08/20 00:00 76.9 61 20 111/43 (65) 94 06/07/20 21:00 Room Air 10.0 06/07/20 20:00 61 06/07/20 20:00 97.4 74 20 134/94 (107) 94 06/07/20 16:00 97.2 69 20 132/58 (82) 95 06/07/20 16:00 71 06/07/20 12:00 97.7 68 20 138/55 (82) 97 06/07/20 12:00 63 06/07/20 09:00 Room Air 06/07/20 08:00 98.1 65 18 138/65 (89) 98 06/07/20 08:00 56 Intake and Output 06/08/20 06/09/20 19:00 07:00 Intake Total 360 ml Balance 360 ml Intake Oral 360 ml # Voids 2 # Bowel Movements 11 11 Labs Test 06/07/20 04:15 06/08/20 04:00 06/08/20 12:00 Sodium Level 137 MMOL/L (136-145) 140 MMOL/L (136-145) Potassium Level 3.5 MMOL/L (3.5-5.1) 3.3 MMOL/L (3.5-5.1) Chloride Level 98 MMOL/L (98-107) 100 MMOL/L (98-107) Carbon Dioxide Level 38 MMOL/L (21-32) 36 MMOL/L (21-32) Anion Gap 1 mmol/L (5-15) 5 mmol/L (5-15) Blood Urea Nitrogen 42 mg/dL (7-18) 50 mg/dL (7-18) Creatinine 1.2 MG/DL (0.55-1.30) 1.3 MG/DL (0.55-1.30) Estimat Glomerular Filtration Rate 43.3 mL/min (>60) 39.4 mL/min (>60) Glucose Level 87 MG/DL (74-106) 85 MG/DL (74-106) Calcium Level 9.2 MG/DL (8.5-10.1) 9.4 MG/DL (8.5-10.1) Thyroid Stimulating Hormone (TSH) 59.218 uiU/mL (0.358-3.740) White Blood Count 5.6 K/UL (4.8-10.8) Red Blood Count 2.94 M/UL (4.20-5.40) Hemoglobin 9.4 G/DL (12.0-16.0) Hematocrit 27.6 % (37.0-47.0) Mean Corpuscular Volume 94 FL (80-99) Mean Corpuscular Hemoglobin 32.0 PG (27.0-31.0) Mean Corpuscular Hemoglobin Concent 34.1 G/DL (32.0-36.0) Red Cell Distribution Width 17.1 % (11.6-14.8) Platelet Count 235 K/UL (150-450) Mean Platelet Volume 7.2 FL (6.5-10.1) Neutrophils (%) (Auto) 57.5 % (45.0-75.0) Lymphocytes (%) (Auto) 30.8 % (20.0-45.0) Monocytes (%) (Auto) 8.5 % (1.0-10.0) Eosinophils (%) (Auto) 2.5 % (0.0-3.0) Basophils (%) (Auto) 0.7 % (0.0-2.0) Height (Feet): 5 Height (Inches): 3.00 Weight (Pounds): 183 Objective Physical Exam: Vitals: reviewed General: NAD HEENT: nc, at Neck: supple Chest: decreased breath sounds bilaterally, crackles+++ 15L NRM Cardiovascular: RRR, no s3, s4 Abdomen: soft, nontender, nd Extremities: 1-2 + edema Neuro: nonverbal Frank Escobar MD Jun 09, 2020 06:39
[2020-06-09 07:50] LABS: BASOPHILS % (AUTO) 0.9 % (0.0-2.0); EOSINOPHILS % (AUTO) 2.1 % (0.0-3.0); HEMATOCRIT 27.5 % (37.0-47.0); HEMOGLOBIN 9.2 G/DL (12.0-16.0); LYMPHOCYTES % (AUTO) 21.9 % (20.0-45.0); MEAN CORPUSCULAR VOLUME 95 FL (80-99); MONOCYTES % (AUTO) 6.6 % (1.0-10.0); NEUTROPHILS % (AUTO) 68.5 % (45.0-75.0); PLATELET COUNT 251 K/UL (150-450); RED BLOOD COUNT 2.89 M/UL (4.20-5.40); WHITE BLOOD COUNT 7.5 K/UL (4.8-10.8)
[2020-06-09 08:00] VITALS: BP 141/67
[2020-06-09] MEDS ORDERED: Tubing IV Secondary IV ONE (08:13)
[2020-06-09] MEDS ORDERED: NS 275ml ONE (08:13)
[2020-06-09 08:54] LABS: ALANINE AMINOTRANSFERASE 13 U/L (12-78); ALBUMIN 3.4 G/DL (3.4-5.0); ALBUMIN/GLOBULIN RATIO 0.8 (1.0-2.7); ALKALINE PHOSPHATASE 48 U/L (46-116); ANION GAP 4 mmol/L (5-15); ASPARTATE AMINO TRANSFERASE 19 U/L (15-37); BILIRUBIN,TOTAL 1.3 MG/DL (0.2-1.0); BLOOD UREA NITROGEN 48 mg/dL (7-18); CALCIUM 9.3 MG/DL (8.5-10.1); CARBON DIOXIDE 35 MMOL/L (21-32); CHLORIDE 99 MMOL/L (98-107); CREATININE 1.3 MG/DL (0.55-1.30); POTASSIUM 3.5 MMOL/L (3.5-5.1); SODIUM 138 MMOL/L (136-145)
[2020-06-09 08:58] LABS: BILIRUBIN,DIRECT 0.3 MG/DL (0.0-0.3)
[2020-06-09] MEDS: Furosemide 40mg tab ORAL SCH (09:00)
[2020-06-09] MEDS: QUEtiapine 200mg tab ORAL SCH (09:00)
[2020-06-09] MEDS: Heparin 5000 units/ml inj SUBQ SCH ×3 (09:00→21:27)
[2020-06-09] MEDS: Docusate 100mg/10ml Liq ORAL SCH ×2 (09:39→17:24)
[2020-06-09] MEDS: Lactulose 20gm/30ml UDC ORAL SCH ×3 (09:39→17:23)
[2020-06-09 12:00] VITALS: BP 140/71
--- NOTE | 2020-06-09 12:00 | Nephrology Progress Note ---
Assessment/Plan Problem List: (1) Renal failure (ARF), acute on chronic (2) Hypercapnic respiratory failure (3) CHF exacerbation (4) Anemia Assessment Azotemia/renal failure Acute respiratory failure most likely secondary to CHF, on mechanical ventilation History of COPD Hypertension Hyperlipemia Schizophrenia/psychosis Plan June 09: Labs reviewed. Renal parameters stable. Continue per current treatment plan. June 08: Labs reviewed. Low potassium addressed. Continue per consultants. June 07: Stable renal parameters. Continue per consultants. Overall stable. June 06: Status quo. Remains on Venturi mask. Labs reviewed. Renal parameters stable. Continue per consultants. June 05: Lethargic. On Venturi mask. Labs reviewed. Returning bicarb. Continue to monitor ABG and electrolytes. Low potassium addressed. June 04: Remains on Venturi mask. No can panel done today. ABG results reviewed. Continue per pulmonary. June 03: Poor respiratory status. ABG noted. Patient hypoxic. Renal parameters somewhat stable. Continue per pulmonary. June 02: Labs reviewed. Low phosphorus replaced. Patient has periodic severe bradycardia. Continue per cardiology. June 01: Labs reviewed. Low magnesium replaced. Renal parameters stable. Hemoglobin level reasonable. Continue per consultants. May 31: Labs reviewed. Abnormal electrolytes at rest. Hemoglobin higher. Discussed with DARREL Cooper. Continue per consultants. May 30: Lab reviewed. Potassium and phosphorus replaced. Hemoglobin higher after transfusion. Continue per consultants. May 29: Lab reviewed. Patient anemic. Electrolyte abnormalities reviewed and addressed. Continue per consultants. Remains stable from renal standpoint of view. May 28: Patient was not transfused despite of my order since yesterday. Will defer transfusion to PMD/turn operator. Patient remains stable from renal standpoint of view. Continue per consultants. Discussed with Marlene nursing charge in [place]. May 27: Remains on Venturi mask. Labs reviewed. Abnormal electrolytes addressed. Hemoglobin low. Will transfuse 1 unit of packed RBCs today May 26: On Venturi mask. Labs reviewed. Abnormal electrolytes addressed. Continue per consultants and pulmonary support. May 25: On Venturi mask. Lethargic. No labs drawn today. Will monitor renal parameters. Per orders. May 24: Remains extubated. Will start on diet with high alert for possible aspiration. Continue to monitor renal parameters. May 23: Continues to be extubated. On nonrebreathing mask. Labs reviewed. Renal parameters stable. Discussed with Continue per current management. May 22: Now extubated on nonrebreathing mask. Labs reviewed. Renal parameters stable. Abnormal electrolytes addressed. Discussed with RN. May 21: Remains intubated. Labs reviewed. Abnormal electrolytes addressed. Discussed with RN. May 20: Remains intubated. Abnormal electrolyte noted on today's lab results and addressed. Continue per consultants. May 19: Patient remains intubated. Labs reviewed. Abnormal electrolytes addressed. Continue per current management. May 18: Patient seen in ICU. Remains intubated. Weaning is being tried. Discussed with RN. Labs reviewed. Abnormal electrolyte addressed. Continue per consultants. May 17: Labs reviewed. Remains intubated. Stable from renal standpoint of view. Continue weaning. Discussed with RN. May 16: Labs reviewed. Remains intubated. Remains full code. Stable from renal standpoint of view. Abnormal electrolytes addressed. May 15: Labs reviewed. Renal parameters stable. Discussed with RN. Patient remains intubated on ventilator and full code. Continue per consultants. May 14: Labs reviewed. Discussed with RN. Abnormal electrolyte addressed. Continue per current management. Patient seen in ICU. Discussed with RN. Today's labs pending. Patient remains on 6 mics of dopamine. Pulmonary support Monitor intake and output Monitor electrolytes Continue per consultants Per orders Subjective ROS Limited/Unobtainable: No Constitutional: Reports: malaise, weakness Objective Objective Last 24 Hour Vital Signs Date Time Temp Pulse Resp B/P (MAP) Pulse Ox O2 Delivery O2 Flow Rate FiO2 06/09/20 08:00 96.7 81 18 141/67 (91) 98 06/09/20 07:46 58 06/09/20 04:00 97.3 67 20 100/71 (81) 97 06/09/20 04:00 58 06/09/20 00:00 97.0 80 20 105/50 (68) 95 06/09/20 00:00 71 06/08/20 21:00 Nasal Cannula 3.0 06/08/20 21:00 96 Nasal Cannula 3.0 32 06/08/20 20:00 57 06/08/20 20:00 97.7 65 20 122/55 (77) 96 06/08/20 16:00 56 06/08/20 16:00 97.0 64 20 114/47 (69) 95 06/08/20 12:00 51 06/08/20 12:00 97.2 59 20 117/31 (59) 97 Intake and Output 06/08/20 06/09/20 19:00 07:00 Intake Total 360 ml Balance 360 ml Intake Oral 360 ml # Voids 2 2 # Bowel Movements 11 11 Laboratory Tests 06/08/20 12:00: White Blood Count 5.6, Red Blood Count 2.94L, Hemoglobin 9.4L, Hematocrit 27.6L, Mean Corpuscular Volume 94, Mean Corpuscular Hemoglobin 32.0H, Mean Corpuscular Hemoglobin Concent 34.1, Red Cell Distribution Width 17.1H, Platelet Count 235, Mean Platelet Volume 7.2, Neutrophils (%) (Auto) 57.5, Lymphocytes (%) (Auto) 30.8, Monocytes (%) (Auto) 8.5, Eosinophils (%) (Auto) 2.5, Basophils (%) (Auto) 0.7 06/09/20 06:45: White Blood Count 7.5, Red Blood Count 2.89L, Hemoglobin 9.2L, Hematocrit 27.5L, Mean Corpuscular Volume 95, Mean Corpuscular Hemoglobin 32.0H, Mean Corpuscular Hemoglobin Concent 33.6, Red Cell Distribution Width 17.0H, Platelet Count 251, Mean Platelet Volume 7.1, Neutrophils (%) (Auto) 68.5, Lymphocytes (%) (Auto) 21.9, Monocytes (%) (Auto) 6.6, Eosinophils (%) (Auto) 2.1, Basophils (%) (Auto) 0.9, Sodium Level 138, Potassium Level 3.5, Chloride Level 99, Carbon Dioxide Level 35H, Anion Gap 4L, Blood Urea Nitrogen 48H, Creatinine 1.3, Estimat Glomerular Filtration Rate 39.4, Glucose Level 86, Calcium Level 9.3, Total Bilirubin 1.3H, Direct Bilirubin 0.3, Aspartate Amino Transf (AST/SGOT) 19, Alanine Aminotransferase (ALT/SGPT) 13, Alkaline Phosphatase 48, Total Protein 7.6, Albumin 3.4, Globulin 4.2, Albumin/Globulin Ratio 0.8L, Free Thyroxine [Pending] Height (Feet): 5 Height (Inches): 3.00 Weight (Pounds): 183 General Appearance: no apparent distress Cardiovascular: normal rate Respiratory/Chest: decreased breath sounds Abdomen: distended Bryan Ochoa MD Jun 09, 2020 12:00
--- NOTE | 2020-06-09 12:17 | Infectious Diseases Prog Note ---
Assessment/Plan Assessment/Plan IMPRESSION: COVID-19 disease, Acute respiratory failure, COPD, Diastolic CHF, Mitral valve regurgitation, Anemia, Parkinson disease, schizoaffective disorder, Dementia, Obstructive sleep apnea, Hypothyroidism. 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 Subjective ROS Limited/Unobtainable: Yes Neurologic: Reports: other - off of restraint Allergies: Coded Allergies: LITHIUM (Verified Allergy, Unknown, 02/07/19) Objective Last 24 Hour Vital Signs Date Time Temp Pulse Resp B/P (MAP) Pulse Ox O2 Delivery O2 Flow Rate FiO2 06/09/20 08:00 96.7 81 18 141/67 (91) 98 06/09/20 07:46 58 06/09/20 04:00 97.3 67 20 100/71 (81) 97 06/09/20 04:00 58 06/09/20 00:00 97.0 80 20 105/50 (68) 95 06/09/20 00:00 71 06/08/20 21:00 Nasal Cannula 3.0 06/08/20 21:00 96 Nasal Cannula 3.0 32 06/08/20 20:00 57 06/08/20 20:00 97.7 65 20 122/55 (77) 96 06/08/20 16:00 56 06/08/20 16:00 97.0 64 20 114/47 (69) 95 Height (Feet): 5 Height (Inches): 3.00 Weight (Pounds): 183 General Appearance: no acute distress HEENT: mucous membranes moist Respiratory/Chest: no respiratory distress Cardiovascular: normal rate Abdomen: soft, non tender Extremities: no edema Neurologic/Psychiatric: alert, responsive Laboratory Tests Test 06/09/20 06:45 White Blood Count 7.5 K/UL (4.8-10.8) Red Blood Count 2.89 M/UL (4.20-5.40) L Hemoglobin 9.2 G/DL (12.0-16.0) L Hematocrit 27.5 % (37.0-47.0) L Mean Corpuscular Volume 95 FL (80-99) Mean Corpuscular Hemoglobin 32.0 PG (27.0-31.0) H Mean Corpuscular Hemoglobin Concent 33.6 G/DL (32.0-36.0) Red Cell Distribution Width 17.0 % (11.6-14.8) H Platelet Count 251 K/UL (150-450) Mean Platelet Volume 7.1 FL (6.5-10.1) Neutrophils (%) (Auto) 68.5 % (45.0-75.0) Lymphocytes (%) (Auto) 21.9 % (20.0-45.0) Monocytes (%) (Auto) 6.6 % (1.0-10.0) Eosinophils (%) (Auto) 2.1 % (0.0-3.0) Basophils (%) (Auto) 0.9 % (0.0-2.0) Sodium Level 138 MMOL/L (136-145) Potassium Level 3.5 MMOL/L (3.5-5.1) Chloride Level 99 MMOL/L (98-107) Carbon Dioxide Level 35 MMOL/L (21-32) H Anion Gap 4 mmol/L (5-15) L Blood Urea Nitrogen 48 mg/dL (7-18) H Creatinine 1.3 MG/DL (0.55-1.30) Estimat Glomerular Filtration Rate 39.4 mL/min (>60) Glucose Level 86 MG/DL (74-106) Calcium Level 9.3 MG/DL (8.5-10.1) Total Bilirubin 1.3 MG/DL (0.2-1.0) H Direct Bilirubin 0.3 MG/DL (0.0-0.3) Aspartate Amino Transf (AST/SGOT) 19 U/L (15-37) Alanine Aminotransferase (ALT/SGPT) 13 U/L (12-78) Alkaline Phosphatase 48 U/L (46-116) Total Protein 7.6 G/DL (6.4-8.2) Albumin 3.4 G/DL (3.4-5.0) Globulin 4.2 g/dL Albumin/Globulin Ratio 0.8 (1.0-2.7) L Free Thyroxine Pending Current Medications Medications (Trade) Dose Ordered Sig/Angie Route PRN Reason Start Time Stop Time Status Last Admin Dose Admin Acetaminophen (Tylenol) 650 mg Q6H PRN NG Fever >100.5 05/14/20 21:00 06/13/20 20:59 05/14/20 21:10 Acetaminophen (Tylenol) 650 mg Q6H PRN NG Mild Pain (Pain Scale 1-3) 05/14/20 21:00 06/13/20 20:59 05/17/20 11:06 Chlorhexidine Gluconate (Ruba-Hex 2%) 1 applic DAILY@2000 TOPIC 05/31/20 20:00 08/29/20 19:59 06/08/20 20:00 Clonidine HCl (Catapres Tab) 0.1 mg Q4H PRN ORAL sbp>170 05/11/20 17:15 08/09/20 17:14 Docusate Sodium (Colace) 100 mg TWICE A DAY ORAL 06/05/20 09:00 07/05/20 08:59 06/08/20 18:15 Furosemide (Lasix) 40 mg DAILY ORAL 06/09/20 09:00 07/09/20 08:59 Haloperidol Lactate (Haldol) 5 mg Q6H PRN IM Agitation 05/13/20 20:45 06/27/20 20:44 05/28/20 02:40 Heparin Sodium (Porcine) (Heparin 5000 units/ml) 5,000 units EVERY 12 HOURS SUBQ 05/25/20 21:00 07/09/20 20:59 06/08/20 21:00 Lactulose (Cephulac) 20 gm THREE TIMES A DAY ORAL 06/08/20 18:00 07/08/20 17:59 06/08/20 18:15 Lansoprazole (Prevacid) 30 mg BID ORAL 06/05/20 18:00 07/05/20 17:59 06/08/20 18:15 Levothyroxine Sodium (Synthroid) 50 mcg DAILY@0630 ORAL 05/14/20 06:30 06/13/20 06:29 06/06/20 06:22 Polyethylene Glycol (Miralax) 17 gm BEDTIME ORAL 05/25/20 21:00 06/24/20 20:59 06/06/20 21:16 Quetiapine Fumarate (SEROqueL) 50 mg Q12HR ORAL 06/09/20 21:00 07/24/20 20:59 Lei Chan MD Jun 09, 2020 12:17
--- NOTE | 2020-06-09 12:49 | Pulmonology Progress Note ---
Subjective ROS Limited/Unobtainable: Yes Interval Events: pt refusing meds per nursing Constitutional: Denies: fever HEENT: Repors: no symptoms Respiratory: Reports: no symptoms Cardiovascular: Reports: no symptoms Gastrointestinal/Abdominal: Reports: no symptoms Genitourinary: Reports: no symptoms Allergies: Coded Allergies: LITHIUM (Verified Allergy, Unknown, 02/07/19) Objective Last 24 Hour Vital Signs Date Time Temp Pulse Resp B/P (MAP) Pulse Ox O2 Delivery O2 Flow Rate FiO2 06/09/20 12:00 98.7 79 19 140/71 (94) 96 06/09/20 11:41 66 06/09/20 08:00 96.7 81 18 141/67 (91) 98 06/09/20 07:46 58 06/09/20 04:00 97.3 67 20 100/71 (81) 97 06/09/20 04:00 58 06/09/20 00:00 97.0 80 20 105/50 (68) 95 06/09/20 00:00 71 06/08/20 21:00 Nasal Cannula 3.0 06/08/20 21:00 96 Nasal Cannula 3.0 32 06/08/20 20:00 57 06/08/20 20:00 97.7 65 20 122/55 (77) 96 06/08/20 16:00 56 06/08/20 16:00 97.0 64 20 114/47 (69) 95 Intake and Output 06/08/20 06/09/20 19:00 07:00 Intake Total 360 ml Balance 360 ml Intake Oral 360 ml # Voids 2 2 # Bowel Movements 11 11 Objective 06/09 seen in tele; now saturating at 93-94% on room air 06/06 no change 06/05 now on 14L Ventimask saturating at high 90s 05/31 on Venturi mask saturating well 05/29/2020 now on 2 lpm NC saturating at 97%; in transfusion 05/28/2020 in SDU; currently on Venturi mask 14L FiO2 14L saturating well 05/27/2020 in SDU; s/p failed attempt at switching to NC due to patient noncompliance; currently saturating low-mid 90s when she is actually on Venturi mask 14L 05/26/2020 in SDU; keeps taking off her NRB and desats to 79-80% 05/24/2020 in ICUD; restless, saturating ok with NC 05/19/2020 Pt in ICU; full code General Appearance: no acute distress HEENT: normocephalic Respiratory: no respiratory distress, decreased breath sounds Cardiovascular: normal rate Abdomen: soft, non tender, other - obese, NG tube Extremities: other - b/l 2+ pitting edema Neurologic: disoriented Laboratory Tests 06/09/20 06:45: White Blood Count 7.5, Red Blood Count 2.89L, Hemoglobin 9.2L, Hematocrit 27.5L, Mean Corpuscular Volume 95, Mean Corpuscular Hemoglobin 32.0H, Mean Corpuscular Hemoglobin Concent 33.6, Red Cell Distribution Width 17.0H, Platelet Count 251, Mean Platelet Volume 7.1, Neutrophils (%) (Auto) 68.5, Lymphocytes (%) (Auto) 21.9, Monocytes (%) (Auto) 6.6, Eosinophils (%) (Auto) 2.1, Basophils (%) (Auto) 0.9, Sodium Level 138, Potassium Level 3.5, Chloride Level 99, Carbon Dioxide Level 35H, Anion Gap 4L, Blood Urea Nitrogen 48H, Creatinine 1.3, Estimat Glomerular Filtration Rate 39.4, Glucose Level 86, Calcium Level 9.3, Total Bilirubin 1.3H, Direct Bilirubin 0.3, Aspartate Amino Transf (AST/SGOT) 19, Alanine Aminotransferase (ALT/SGPT) 13, Alkaline Phosphatase 48, Total Protein 7.6, Albumin 3.4, Globulin 4.2, Albumin/Globulin Ratio 0.8L, Free Thyroxine [Pending] Current Medications Medications (Trade) Dose Ordered Sig/Angie Route PRN Reason Start Time Stop Time Status Last Admin Dose Admin Acetaminophen (Tylenol) 650 mg Q6H PRN NG Fever >100.5 05/14/20 21:00 06/13/20 20:59 05/14/20 21:10 Acetaminophen (Tylenol) 650 mg Q6H PRN NG Mild Pain (Pain Scale 1-3) 05/14/20 21:00 06/13/20 20:59 05/17/20 11:06 Chlorhexidine Gluconate (Ruba-Hex 2%) 1 applic DAILY@1999 TOPIC 05/31/20 20:00 08/29/20 19:59 06/08/20 20:00 Clonidine HCl (Catapres Tab) 0.1 mg Q4H PRN ORAL sbp>170 05/11/20 17:15 08/09/20 17:14 Docusate Sodium (Colace) 100 mg TWICE A DAY ORAL 06/05/20 09:00 07/05/20 08:59 06/08/20 18:15 Furosemide (Lasix) 40 mg DAILY ORAL 06/09/20 09:00 07/09/20 08:59 Haloperidol Lactate (Haldol) 5 mg Q6H PRN IM Agitation 05/13/20 20:45 06/27/20 20:44 05/28/20 02:40 Heparin Sodium (Porcine) (Heparin 5000 units/ml) 5,000 units EVERY 12 HOURS SUBQ 05/25/20 21:00 07/09/20 20:59 06/08/20 21:00 Lactulose (Cephulac) 20 gm THREE TIMES A DAY ORAL 06/08/20 18:00 07/08/20 17:59 06/08/20 18:15 Lansoprazole (Prevacid) 30 mg BID ORAL 06/05/20 18:00 07/05/20 17:59 06/08/20 18:15 Levothyroxine Sodium (Synthroid) 50 mcg DAILY@0630 ORAL 05/14/20 06:30 06/13/20 06:29 06/06/20 06:22 Polyethylene Glycol (Miralax) 17 gm BEDTIME ORAL 05/25/20 21:00 06/24/20 20:59 06/06/20 21:16 Quetiapine Fumarate (SEROqueL) 50 mg Q12HR ORAL 06/09/20 21:00 07/24/20 20:59 Assessment/Plan Assessment/Plan 1. Bilateral COVID-19 multilobar pneumonia. - s/p ETT - Afebrile - s/p Azithromycin, Ceftriaxone, dexamethasone, and remdesivir - CXR 05/31 Patchy bilateral airspace consolidations, consistent with multifocal infiltrate, similar in appearance to previous study from 05/30; Stable, small bilateral pleural effusions. - COVID-19 PCR 06/02 inconclusive result - COVID-19 PCR 06/04 positive 2. Hx of COPD. 3. Schizophrenia/psychosis - On haloperidol per Dr. Hernandez; refusing all PO medications 4. Hypoxia. -Now room air; ABG better; saturating at 93-94% - X-ray chest on 06/07 shows significantly improved bilateral pulmonary infiltrates - Now on oral Lasix 40 mg - off Diamox - recommend continued diuresis with ongoing BUN/Cr monitoring 5. Anemia 6. SSS - plan for pacer noted; per cardio DVT ppx The care for this patient was discussed with my supervising physician Time spent for this case was approximately 31 minutes Trae Avilez Jun 09, 2020 12:49
--- NOTE | 2020-06-09 13:26 | Cardiac Electrophysiology PN ---
Assessment/Plan Assessment/Plan 1. Covid PNA and respiratory failure. S/P Remdesevir and Dexamethasone Self extubated on 3liter NC. Off Abx per ID. On Lasix [address] Myers 2. SSS with 8 pauses of more than 3 seconds including 9 and 10 second pauses off any QUEZADA or AVN blockers. Will need pacer consent from conservator/court and ID clearance 3. Hypotension. Off Dopamine.Tolerating Lasix. EF 55% 4. Schizophrenia and psychosis. 5. S/P MRSA & Klebsiella pneumonia treated DW RN and Dr Chan from ID Subjective Subjective Self extubated on 05/22/20 in Covid isolation S/P Left arm PICC line placement as has no iv access. Had multiple pauses of more than 3 seconds including a 4s and 7s and a 10 second pause at 1 AM on 05/31 Had pauses of 7, 8 and 6 seconds again 06/01/20 Conservator deferred authorization for PPM to court. Has positive blood Cx and ID clearance also pending pre pacer implant On 15 liter NRBFM No pauses last 2 days Objective Last 24 Hour Vital Signs Date Time Temp Pulse Resp B/P (MAP) Pulse Ox O2 Delivery O2 Flow Rate FiO2 06/09/20 12:00 98.7 79 19 140/71 (94) 96 06/09/20 11:41 66 06/09/20 09:00 Nasal Cannula 3.0 06/09/20 08:00 96.7 81 18 141/67 (91) 98 06/09/20 07:46 58 06/09/20 04:00 97.3 67 20 100/71 (81) 97 06/09/20 04:00 58 06/09/20 00:00 97.0 80 20 105/50 (68) 95 06/09/20 00:00 71 06/08/20 21:00 Nasal Cannula 3.0 06/08/20 21:00 96 Nasal Cannula 3.0 32 06/08/20 20:00 57 06/08/20 20:00 97.7 65 20 122/55 (77) 96 06/08/20 16:00 56 06/08/20 16:00 97.0 64 20 114/47 (69) 95 Intake and Output 06/08/20 06/09/20 19:00 07:00 Intake Total 360 ml Balance 360 ml Intake Oral 360 ml # Voids 2 2 # Bowel Movements 11 11 Laboratory Tests Test 06/09/20 06:45 White Blood Count 7.5 K/UL (4.8-10.8) Red Blood Count 2.89 M/UL (4.20-5.40) L Hemoglobin 9.2 G/DL (12.0-16.0) L Hematocrit 27.5 % (37.0-47.0) L Mean Corpuscular Volume 95 FL (80-99) Mean Corpuscular Hemoglobin 32.0 PG (27.0-31.0) H Mean Corpuscular Hemoglobin Concent 33.6 G/DL (32.0-36.0) Red Cell Distribution Width 17.0 % (11.6-14.8) H Platelet Count 251 K/UL (150-450) Mean Platelet Volume 7.1 FL (6.5-10.1) Neutrophils (%) (Auto) 68.5 % (45.0-75.0) Lymphocytes (%) (Auto) 21.9 % (20.0-45.0) Monocytes (%) (Auto) 6.6 % (1.0-10.0) Eosinophils (%) (Auto) 2.1 % (0.0-3.0) Basophils (%) (Auto) 0.9 % (0.0-2.0) Sodium Level 138 MMOL/L (136-145) Potassium Level 3.5 MMOL/L (3.5-5.1) Chloride Level 99 MMOL/L (98-107) Carbon Dioxide Level 35 MMOL/L (21-32) H Anion Gap 4 mmol/L (5-15) L Blood Urea Nitrogen 48 mg/dL (7-18) H Creatinine 1.3 MG/DL (0.55-1.30) Estimat Glomerular Filtration Rate 39.4 mL/min (>60) Glucose Level 86 MG/DL (74-106) Calcium Level 9.3 MG/DL (8.5-10.1) Total Bilirubin 1.3 MG/DL (0.2-1.0) H Direct Bilirubin 0.3 MG/DL (0.0-0.3) Aspartate Amino Transf (AST/SGOT) 19 U/L (15-37) Alanine Aminotransferase (ALT/SGPT) 13 U/L (12-78) Alkaline Phosphatase 48 U/L (46-116) Total Protein 7.6 G/DL (6.4-8.2) Albumin 3.4 G/DL (3.4-5.0) Globulin 4.2 g/dL Albumin/Globulin Ratio 0.8 (1.0-2.7) L Free Thyroxine Pending Objective HEAD AND NECK: Positive JVD. LUNGS: Decreased breath sounds. CARDIOVASCULAR: Regular S1 and S2 with no gallop. ABDOMEN: Obese. EXTREMITIES: Bilateral 2+ pitting edema. Cameron Davies MD Jun 09, 2020 13:26
[2020-06-09 16:00] VITALS: BP 140/76
--- NOTE | 2020-06-09 17:13 | Surgery Progress Note ---
Surgery Progress Note Subjective Additional Comments on NC labs noted exam stable no n/v Objective Last 24 Hour Vital Signs Date Time Temp Pulse Resp B/P (MAP) Pulse Ox O2 Delivery O2 Flow Rate FiO2 06/09/20 12:00 98.7 79 19 140/71 (94) 96 06/09/20 11:41 66 06/09/20 09:00 Nasal Cannula 3.0 06/09/20 08:00 96.7 81 18 141/67 (91) 98 06/09/20 07:46 58 06/09/20 04:00 97.3 67 20 100/71 (81) 97 06/09/20 04:00 58 06/09/20 00:00 97.0 80 20 105/50 (68) 95 06/09/20 00:00 71 06/08/20 21:00 Nasal Cannula 3.0 06/08/20 21:00 96 Nasal Cannula 3.0 32 06/08/20 20:00 57 06/08/20 20:00 97.7 65 20 122/55 (77) 96 I&O Intake and Output 06/08/20 06/09/20 19:00 07:00 Intake Total 360 ml Balance 360 ml Intake Oral 360 ml # Voids 2 2 # Bowel Movements 11 11 Dressing: saturated Cardiovascular: RSR Respiratory: clear, decreased breath sounds Abdomen: soft, non-tender, present bowel sounds Extremities: no tenderness, no cyanosis Laboratory Tests Test 06/09/20 06:45 White Blood Count 7.5 K/UL (4.8-10.8) Red Blood Count 2.89 M/UL (4.20-5.40) L Hemoglobin 9.2 G/DL (12.0-16.0) L Hematocrit 27.5 % (37.0-47.0) L Mean Corpuscular Volume 95 FL (80-99) Mean Corpuscular Hemoglobin 32.0 PG (27.0-31.0) H Mean Corpuscular Hemoglobin Concent 33.6 G/DL (32.0-36.0) Red Cell Distribution Width 17.0 % (11.6-14.8) H Platelet Count 251 K/UL (150-450) Mean Platelet Volume 7.1 FL (6.5-10.1) Neutrophils (%) (Auto) 68.5 % (45.0-75.0) Lymphocytes (%) (Auto) 21.9 % (20.0-45.0) Monocytes (%) (Auto) 6.6 % (1.0-10.0) Eosinophils (%) (Auto) 2.1 % (0.0-3.0) Basophils (%) (Auto) 0.9 % (0.0-2.0) Sodium Level 138 MMOL/L (136-145) Potassium Level 3.5 MMOL/L (3.5-5.1) Chloride Level 99 MMOL/L (98-107) Carbon Dioxide Level 35 MMOL/L (21-32) H Anion Gap 4 mmol/L (5-15) L Blood Urea Nitrogen 48 mg/dL (7-18) H Creatinine 1.3 MG/DL (0.55-1.30) Estimat Glomerular Filtration Rate 39.4 mL/min (>60) Glucose Level 86 MG/DL (74-106) Calcium Level 9.3 MG/DL (8.5-10.1) Total Bilirubin 1.3 MG/DL (0.2-1.0) H Direct Bilirubin 0.3 MG/DL (0.0-0.3) Aspartate Amino Transf (AST/SGOT) 19 U/L (15-37) Alanine Aminotransferase (ALT/SGPT) 13 U/L (12-78) Alkaline Phosphatase 48 U/L (46-116) Total Protein 7.6 G/DL (6.4-8.2) Albumin 3.4 G/DL (3.4-5.0) Globulin 4.2 g/dL Albumin/Globulin Ratio 0.8 (1.0-2.7) L Free Thyroxine Pending Plan Problems: (1) Anemia (2) Hypercapnic respiratory failure Assessment & Plan: respiratory insufficiency requiring prolonged ventilatory support unable to wean vent safely after multiple attempts discussed with pcp. discussed with pulm discussed with patient guardian. patient unable to consent. no nok or poa. given critical care and condition not recommended to await court decision which during pandemic can take long time. medically necessary to proceed with trach in patients best interest. 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
[2020-06-09 20:00] VITALS: BP 113/46
[2020-06-09] MEDS: Dyna-Hex 2% Top Sol 2oz TOPIC SCH (20:18)
--- NOTE | 2020-06-09 21:26 | General Progress Note ---
Subjective ROS Limited/Unobtainable: Yes Allergies: Coded Allergies: LITHIUM (Verified Allergy, Unknown, 02/07/19) Objective Last 24 Hour Vital Signs Date Time Temp Pulse Resp B/P (MAP) Pulse Ox O2 Delivery O2 Flow Rate FiO2 06/09/20 16:00 96.7 67 19 140/76 (97) 98 06/09/20 15:14 58 06/09/20 12:00 98.7 79 19 140/71 (94) 96 06/09/20 11:41 66 06/09/20 09:00 Nasal Cannula 3.0 06/09/20 08:00 96.7 81 18 141/67 (91) 98 06/09/20 07:46 58 06/09/20 04:00 97.3 67 20 100/71 (81) 97 06/09/20 04:00 58 06/09/20 00:00 97.0 80 20 105/50 (68) 95 06/09/20 00:00 71 Intake and Output 06/08/20 06/09/20 19:00 07:00 Intake Total 360 ml Balance 360 ml Intake Oral 360 ml # Voids 2 2 # Bowel Movements 11 11 Laboratory Tests 06/09/20 06:45: White Blood Count 7.5, Red Blood Count 2.89L, Hemoglobin 9.2L, Hematocrit 27.5L, Mean Corpuscular Volume 95, Mean Corpuscular Hemoglobin 32.0H, Mean Corpuscular Hemoglobin Concent 33.6, Red Cell Distribution Width 17.0H, Platelet Count 251, Mean Platelet Volume 7.1, Neutrophils (%) (Auto) 68.5, Lymphocytes (%) (Auto) 21.9, Monocytes (%) (Auto) 6.6, Eosinophils (%) (Auto) 2.1, Basophils (%) (Auto) 0.9, Sodium Level 138, Potassium Level 3.5, Chloride Level 99, Carbon Dioxide Level 35H, Anion Gap 4L, Blood Urea Nitrogen 48H, Creatinine 1.3, Estimat Glomerular Filtration Rate 39.4, Glucose Level 86, Calcium Level 9.3, Total Bilirubin 1.3H, Direct Bilirubin 0.3, Aspartate Amino Transf (AST/SGOT) 19, Alanine Aminotransferase (ALT/SGPT) 13, Alkaline Phosphatase 48, Total Protein 7.6, Albumin 3.4, Globulin 4.2, Albumin/Globulin Ratio 0.8L, Free Thyroxine [Pending] Height (Feet): 5 Height (Inches): 3.00 Weight (Pounds): 183 Assessment/Plan Problem List: (1) Anemia ICD Codes: D64.9 - Anemia, unspecified SNOMED: 011858775 (2) Hypercapnic respiratory failure ICD Codes: J96.92 - Respiratory failure, unspecified with hypercapnia SNOMED: 773566321 (3) COVID-19 ICD Codes: U07.1 - COVID-19 SNOMED: 264841713 (4) COPD (chronic obstructive pulmonary disease) ICD Codes: J44.9 - Chronic obstructive pulmonary disease, unspecified SNOMED: 36831563 (5) Psychosis ICD Codes: F29 - Unspecified psychosis not due to a substance or known physiological condition SNOMED: 61455825 (6) Hypoxia ICD Codes: R09.02 - Hypoxemia SNOMED: 386990528 (7) Renal failure (ARF), acute on chronic ICD Codes: N17.9 - Acute kidney failure, unspecified; N18.9 - Chronic kidney disease, unspecified SNOMED: 864756461 (8) CHF exacerbation ICD Codes: I50.9 - Heart failure, unspecified SNOMED: 138381634, 44277563193840 Status: progressing, unchanged, deteriorating Assessment/Plan: psychosis tendency to refuse care afebrile covid positive pna sepsis copd exac chf exac Dani Perera MD Jun 09, 2020 21:26
[2020-06-09] MEDS: Miralax 17gm pkt ORAL SCH (21:28)
--- NOTE | 2020-06-09 21:45 | General Progress Note ---
Subjective Allergies: Coded Allergies: LITHIUM (Verified Allergy, Unknown, 02/07/19) Subjective above noted comfortable no abdominal complaints Objective Last 24 Hour Vital Signs Date Time Temp Pulse Resp B/P (MAP) Pulse Ox O2 Delivery O2 Flow Rate FiO2 06/09/20 16:00 96.7 67 19 140/76 (97) 98 06/09/20 15:14 58 06/09/20 12:00 98.7 79 19 140/71 (94) 96 06/09/20 11:41 66 06/09/20 09:00 Nasal Cannula 3.0 06/09/20 08:00 96.7 81 18 141/67 (91) 98 06/09/20 07:46 58 06/09/20 04:00 97.3 67 20 100/71 (81) 97 06/09/20 04:00 58 06/09/20 00:00 97.0 80 20 105/50 (68) 95 06/09/20 00:00 71 Intake and Output 06/08/20 06/09/20 19:00 07:00 Intake Total 360 ml Balance 360 ml Intake Oral 360 ml # Voids 2 2 # Bowel Movements 11 11 Laboratory Tests 06/09/20 06:45: White Blood Count 7.5, Red Blood Count 2.89L, Hemoglobin 9.2L, Hematocrit 27.5L, Mean Corpuscular Volume 95, Mean Corpuscular Hemoglobin 32.0H, Mean Corpuscular Hemoglobin Concent 33.6, Red Cell Distribution Width 17.0H, Platelet Count 251, Mean Platelet Volume 7.1, Neutrophils (%) (Auto) 68.5, Lymphocytes (%) (Auto) 21.9, Monocytes (%) (Auto) 6.6, Eosinophils (%) (Auto) 2.1, Basophils (%) (Auto) 0.9, Sodium Level 138, Potassium Level 3.5, Chloride Level 99, Carbon Dioxide Level 35H, Anion Gap 4L, Blood Urea Nitrogen 48H, Creatinine 1.3, Estimat Glomerular Filtration Rate 39.4, Glucose Level 86, Calcium Level 9.3, Total Bilirubin 1.3H, Direct Bilirubin 0.3, Aspartate Amino Transf (AST/SGOT) 19, A lanine Aminotransferase (ALT/SGPT) 13, Alkaline Phosphatase 48, Total Protein 7.6, Albumin 3.4, Globulin 4.2, Albumin/Globulin Ratio 0.8L, Free Thyroxine [Pending] Height (Feet): 5 Height (Inches): 3.00 Weight (Pounds): 183 Objective WDWN WW NCAT CTA RR abd soft no edema Assessment/Plan Status: progressing, unchanged, deteriorating Assessment/Plan: Assessment/Plan (1) Hypertension (2) Schizophrenia (3) Hyperlipidemia (4) Parkinson disease (5) Anemia (6) Obese (7) COVID (+) (8) Hypoxia Recommendations PPI BID Follow H&H Transfuse to keep Hg>7.0 po as tolerated - per ST rec GI procedures at a later date, if needed bowel regimen Aria Chicas MD Jun 09, 2020 21:45
--- NOTE | 2020-06-09 23:01 | Psychiatric Progress Note ---
Psychiatry Progress Note Psychiatry Progress Note Subjective the pt has waxing and waning o consciousness on restraints episodes agitation confused Medications Current Medications Medications (Trade) Dose Ordered Sig/Angie Route PRN Reason Start Time Stop Time Status Last Admin Dose Admin Acetaminophen (Tylenol) 650 mg Q6H PRN NG Fever >100.5 05/14/20 21:00 06/13/20 20:59 05/14/20 21:10 Acetaminophen (Tylenol) 650 mg Q6H PRN NG Mild Pain (Pain Scale 1-3) 05/14/20 21:00 06/13/20 20:59 05/17/20 11:06 Chlorhexidine Gluconate (Ruba-Hex 2%) 1 applic DAILY@1999 TOPIC 05/31/20 20:00 08/29/20 19:59 06/09/20 20:18 Clonidine HCl (Catapres Tab) 0.1 mg Q4H PRN ORAL sbp>170 05/11/20 17:15 08/09/20 17:14 Docusate Sodium (Colace) 100 mg TWICE A DAY ORAL 06/05/20 09:00 07/05/20 08:59 06/08/20 18:15 Furosemide (Lasix) 40 mg DAILY ORAL 06/09/20 09:00 07/09/20 08:59 Haloperidol Lactate (Haldol) 5 mg Q6H PRN IM Agitation 05/13/20 20:45 06/27/20 20:44 05/28/20 02:40 Heparin Sodium (Porcine) (Heparin 5000 units/ml) 5,000 units EVERY 12 HOURS SUBQ 05/25/20 21:00 07/09/20 20:59 06/08/20 21:00 Lactulose (Cephulac) 20 gm THREE TIMES A DAY ORAL 06/08/20 18:00 07/08/20 17:59 06/08/20 18:15 Lansoprazole (Prevacid) 30 mg BID ORAL 06/05/20 18:00 07/05/20 17:59 06/08/20 18:15 Levothyroxine Sodium (Synthroid) 50 mcg DAILY@0630 ORAL 05/14/20 06:30 06/13/20 06:29 06/06/20 06:22 Polyethylene Glycol (Miralax) 17 gm BEDTIME ORAL 05/25/20 21:00 06/24/20 20:59 06/09/20 21:28 Quetiapine Fumarate (SEROqueL) 50 mg Q12HR ORAL 06/09/20 21:00 07/24/20 20:59 06/09/20 21:28 Neurological/Psychiatric: Denies: no symptoms, anxiety, depressed, emotional problems, headache, numbness, paresthesia, pre-existing deficit, seizure, tingling, tremors, weakness, other Allergies: Coded Allergies: LITHIUM (Verified Allergy, Unknown, 02/07/19) Objective Data Height (Feet): 5 Height (Inches): 3.00 Weight (Pounds): 183 General Appearance: no apparent distress Additional Comments: waxing and waning consciousness. Disoriented. Mood is neutral to agitation. Affect is flat. Thought process, there is paucity of thought process. Thought content, no suicidal or homicidal ideation. Cognition is impaired. Insight and judgment is impaired. Assessment/Plan Marathon I: Marathon I Acute toxic encephalopathy. Schizophrenia. Marathon II Deferred. Marathon III COVID-19. Marathon IV Low. Marathon V 20 PLAN: 1. Discontinue the IV Haldol. 2. Start the patient on Haldol IM. 3. The patient benefits from bilateral soft restraints. 4. Provide the patient with reality orientation. 5. Discussed with the nurse. Status: progressing, unchanged, deteriorating Status Narrative Marathon I Acute toxic encephalopathy. Schizophrenia. Marathon II Deferred. Marathon III COVID-19. Marathon IV Low. Marathon V 20 PLAN: 1. Discontinue the IV Haldol. 2. Start the patient on Haldol IM. 3. The patient benefits from bilateral soft restraints. 4. Provide the patient with reality orientation. 5. Discussed with the nurse. Assessment/Plan: Marathon I Acute toxic encephalopathy. Schizophrenia. Marathon II Deferred. Marathon III COVID-19. Marathon IV Low. Marathon V 20 PLAN: 1. Discontinue the IV Haldol. 2. Start the patient on Haldol IM. 3. The patient benefits from bilateral soft restraints. 4. Provide the patient with reality orientation. 5. Discussed with the nurse. Kiana Hernandez MD Jun 09, 2020 23:01
[2020-06-10] VITALS: BP 122/45
[2020-06-10 04:00] VITALS: BP 109/53
--- NOTE | 2020-06-10 06:16 | Hematology/Onc Progress Note ---
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 consultant care and alexei Rn Subjective Constitutional: Denies: no symptoms, chills, fever, malaise, weakness, other HEENT: Denies: no symptoms, eye pain, blurred vision, tearing, double vision, ear pain, ear discharge, nose pain, nose congestion, throat pain, throat swelling, mouth pain, mouth swelling, other Cardiovascular: Denies: no symptoms, chest pain, edema, irregular heart rate, lightheadedness, palpitations, syncope, other Respiratory: Denies: no symptoms, cough, shortness of breath, SOB with excertion, SOB at rest, sputum, wheezing, other Gastrointestinal/Abdominal: Denies: no symptoms, abdomen distended, abdominal p ain, black stools, tarry stools, blood in stool, constipated, diarrhea, difficulty swallowing, nausea, poor appetite, poor fluid intake, rectal bleeding, vomiting, other Genitourinary: Denies: no symptoms, burning, discharge, frequency, flank pain, hematuria, incontinence, pain, urgency, other Neurologic/Psychiatric: Denies: no symptoms, anxiety, depressed, emotional problems, headache, numbness, paresthesia, pre-existing deficit, seizure, tingling, tremors, weakness, other Hematologic/Lymphatic: Denies: no symptoms, anemia, easy bleeding, easy bruising, adenopathy, other Allergies: Coded Allergies: LITHIUM (Verified Allergy, Unknown, 02/07/19) Subjective 06/01 nonrebreather, 15L, some mild pain in back, chest, no night sweats 06/02 remains on nonrebreather, labs are noted, no bleeding or night sweats 06/03 labs reviewed, meds noted, nonrebreather, c02 was elevated, to inform pulm 06/04 labs reviewed, meds noted, on NR, no night sweats, meds noted 06/05 is on 15lnc venturi mask, is covid iso, labs noted 06/06 labs reviewed, on venturi mask, on b/l soft wrists, meds noted 06/08 labs reviewed, on nc, no bleeding, with picc line, cbc ordered 06/09 labs reviewed, confused, on 3l nc, no night sweats, meds reviewed 06/10 is off restraints, left picc has been removed, no new changes Objective Objective Current Medications Medications (Trade) Dose Ordered Sig/Angie Route PRN Reason Start Time Stop Time Status Last Admin Dose Admin Acetaminophen (Tylenol) 650 mg Q6H PRN NG Fever >100.5 05/14/20 21:00 06/13/20 20:59 05/14/20 21:10 Acetaminophen (Tylenol) 650 mg Q6H PRN NG Mild Pain (Pain Scale 1-3) 05/14/20 21:00 06/13/20 20:59 05/17/20 11:06 Chlorhexidine Gluconate (Ruba-Hex 2%) 1 applic DAILY@1999 TOPIC 05/31/20 20:00 08/29/20 19:59 06/09/20 20:18 Clonidine HCl (Catapres Tab) 0.1 mg Q4H PRN ORAL sbp>170 05/11/20 17:15 08/09/20 17:14 Docusate Sodium (Colace) 100 mg TWICE A DAY ORAL 06/05/20 09:00 07/05/20 08:59 06/08/20 18:15 Furosemide (Lasix) 40 mg DAILY ORAL 06/09/20 09:00 07/09/20 08:59 Haloperidol Lactate (Haldol) 5 mg Q6H PRN IM Agitation 05/13/20 20:45 06/27/20 20:44 05/28/20 02:40 Heparin Sodium (Porcine) (Heparin 5000 units/ml) 5,000 units EVERY 12 HOURS SUBQ 05/25/20 21:00 07/09/20 20:59 06/08/20 21:00 Lactulose (Cephulac) 20 gm THREE TIMES A DAY ORAL 06/08/20 18:00 07/08/20 17:59 06/08/20 18:15 Lansoprazole (Prevacid) 30 mg BID ORAL 06/05/20 18:00 07/05/20 17:59 06/08/20 18:15 Levothyroxine Sodium (Synthroid) 50 mcg DAILY@0630 ORAL 05/14/20 06:30 06/13/20 06:29 06/06/20 06:22 Polyethylene Glycol (Miralax) 17 gm BEDTIME ORAL 05/25/20 21:00 06/24/20 20:59 06/09/20 21:28 Quetiapine Fumarate (SEROqueL) 50 mg Q12HR ORAL 06/09/20 21:00 07/24/20 20:59 06/09/20 21:28 Last 24 Hour Vital Signs Date Time Temp Pulse Resp B/P (MAP) Pulse Ox O2 Delivery O2 Flow Rate FiO2 06/10/20 04:00 97.3 58 19 109/53 (71) 95 06/10/20 04:00 56 06/10/20 00:00 97.2 66 20 122/45 (70) 95 06/10/20 00:00 71 06/09/20 21:00 Room Air 06/09/20 20:00 61 06/09/20 20:00 96.4 61 20 113/46 (68) 93 06/09/20 16:00 96.7 67 19 140/76 (97) 98 06/09/20 15:14 58 06/09/20 12:00 98.7 79 19 140/71 (94) 96 06/09/20 11:41 66 06/09/20 09:00 Nasal Cannula 3.0 06/09/20 08:00 96.7 81 18 141/67 (91) 98 06/09/20 07:46 58 06/09/20 04:00 97.3 67 20 100/71 (81) 97 06/09/20 04:00 58 06/09/20 00:00 97.0 80 20 105/50 (68) 95 06/09/20 00:00 71 06/08/20 21:00 Nasal Cannula 3.0 06/08/20 21:00 96 Nasal Cannula 3.0 32 06/08/20 20:00 57 06/08/20 20:00 97.7 65 20 122/55 (77) 96 06/08/20 16:00 56 06/08/20 16:00 97.0 64 20 114/47 (69) 95 06/08/20 12:00 51 06/08/20 12:00 97.2 59 20 117/31 (59) 97 06/08/20 09:00 Nasal Cannula 3.0 06/08/20 08:46 98 Nasal Cannula 3.0 32 06/08/20 08:00 98.2 68 20 136/65 (88) 94 06/08/20 08:00 65 Intake and Output 06/09/20 06/10/20 19:00 07:00 Intake Total 120 ml Output Total 1200 ml Balance -1080 ml Intake Oral 120 ml Output Urine Total 1200 ml # Voids 3 # Bowel Movements 11 Labs Test 06/08/20 04:00 06/08/20 12:00 06/09/20 06:45 Sodium Level 140 MMOL/L (136-145) 138 MMOL/L (136-145) Potassium Level 3.3 MMOL/L (3.5-5.1) 3.5 MMOL/L (3.5-5.1) Chloride Level 100 MMOL/L (98-107) 99 MMOL/L (98-107) Carbon Dioxide Level 36 MMOL/L (21-32) 35 MMOL/L (21-32) Anion Gap 5 mmol/L (5-15) 4 mmol/L (5-15) Blood Urea Nitrogen 50 mg/dL (7-18) 48 mg/dL (7-18) Creatinine 1.3 MG/DL (0.55-1.30) 1.3 MG/DL (0.55-1.30) Estimat Glomerular Filtration Rate 39.4 mL/min (>60) 39.4 mL/min (>60) Glucose Level 85 MG/DL (74-106) 86 MG/DL (74-106) Calcium Level 9.4 MG/DL (8.5-10.1) 9.3 MG/DL (8.5-10.1) Thyroid Stimulating Hormone (TSH) 59.218 uiU/mL (0.358-3.740) White Blood Count 5.6 K/UL (4.8-10.8) 7.5 K/UL (4.8-10.8) Red Blood Count 2.94 M/UL (4.20-5.40) 2.89 M/UL (4.20-5.40) Hemoglobin 9.4 G/DL (12.0-16.0) 9.2 G/DL (12.0-16.0) Hematocrit 27.6 % (37.0-47.0) 27.5 % (37.0-47.0) Mean Corpuscular Volume 94 FL (80-99) 95 FL (80-99) Mean Corpuscular Hemoglobin 32.0 PG (27.0-31.0) 32.0 PG (27.0-31.0) Mean Corpuscular Hemoglobin Concent 34.1 G/DL (32.0-36.0) 33.6 G/DL (32.0-36.0) Red Cell Distribution Width 17.1 % (11.6-14.8) 17.0 % (11.6-14.8) Platelet Count 235 K/UL (150-450) 251 K/UL (150-450) Mean Platelet Volume 7.2 FL (6.5-10.1) 7.1 FL (6.5-10.1) Neutrophils (%) (Auto) 57.5 % (45.0-75.0) 68.5 % (45.0-75.0) Lymphocytes (%) (Auto) 30.8 % (20.0-45.0) 21.9 % (20.0-45.0) Monocytes (%) (Auto) 8.5 % (1.0-10.0) 6.6 % (1.0-10.0) Eosinophils (%) (Auto) 2.5 % (0.0-3.0) 2.1 % (0.0-3.0) Basophils (%) (Auto) 0.7 % (0.0-2.0) 0.9 % (0.0-2.0) Total Bilirubin 1.3 MG/DL (0.2-1.0) Direct Bilirubin 0.3 MG/DL (0.0-0.3) Aspartate Amino Transf (AST/SGOT) 19 U/L (15-37) Alanine Aminotransferase (ALT/SGPT) 13 U/L (12-78) Alkaline Phosphatase 48 U/L (46-116) Total Protein 7.6 G/DL (6.4-8.2) Albumin 3.4 G/DL (3.4-5.0) Globulin 4.2 g/dL Albumin/Globulin Ratio 0.8 (1.0-2.7) Height (Feet): 5 Height (Inches): 3.00 Weight (Pounds): 183 Objective Physical Exam: Vitals: reviewed General: NAD HEENT: nc, at Neck: supple Chest: decreased breath sounds bilaterally, crackles+++ 15L NRM Cardiovascular: RRR, no s3, s4 Abdomen: soft, nontender, nd Extremities: 1-2 + edema Neuro: nonverbal Frank Escobar MD Jun 10, 2020 06:16
[2020-06-10 08:00] VITALS: BP 108/32
[2020-06-10 08:37] LABS: EOSINOPHILS % (AUTO) 2.1 % (0.0-3.0); HEMATOCRIT 25.1 % (37.0-47.0); LYMPHOCYTES % (AUTO) 30.7 % (20.0-45.0); MEAN CORPUSCULAR VOLUME 91 FL (80-99); MONOCYTES % (AUTO) 7.6 % (1.0-10.0); NEUTROPHILS % (AUTO) 58.6 % (45.0-75.0); PLATELET COUNT 246 K/UL (150-450); RED BLOOD COUNT 2.75 M/UL (4.20-5.40); RED CELL DISTRIBUTION WIDTH 16.5 % (11.6-14.8); WHITE BLOOD COUNT 5.4 K/UL (4.8-10.8)
[2020-06-10] MEDS: Lactulose 20gm/30ml UDC ORAL SCH ×4 (08:47→18:00)
[2020-06-10] MEDS: Docusate 100mg/10ml Liq ORAL SCH ×3 (08:47→18:00)
[2020-06-10] MEDS: Furosemide 40mg tab ORAL SCH ×2 (08:48→09:00)
[2020-06-10] MEDS: Heparin 5000 units/ml inj SUBQ SCH ×2 (08:51→21:00)
--- NOTE | 2020-06-10 10:21 | Infectious Diseases Prog Note ---
Assessment/Plan Assessment/Plan IMPRESSION: COVID-19 disease, Acute respiratory failure, COPD, Diastolic CHF, Mitral valve regurgitation, Anemia, Parkinson disease, schizoaffective disorder, Dementia, Obstructive sleep apnea, Hypothyroidism. 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 SSS with pause RECOMMENDATION: Finished dexamethasone & Remdesivir course Observe off of antibiotic Waiting for pacemaker placement Subjective ROS Limited/Unobtainable: Yes Constitutional: Denies: fever Cardiovascular: Reports: other - removed her PICC line Allergies: Coded Allergies: LITHIUM (Verified Allergy, Unknown, 02/07/19) Objective Last 24 Hour Vital Signs Date Time Temp Pulse Resp B/P (MAP) Pulse Ox O2 Delivery O2 Flow Rate FiO2 06/10/20 08:15 95 Room Air 21 06/10/20 08:00 98.1 60 17 108/32 (57) 96 06/10/20 04:00 97.3 58 19 109/53 (71) 95 06/10/20 04:00 56 06/10/20 00:00 97.2 66 20 122/45 (70) 95 06/10/20 00:00 71 06/09/20 21:00 Room Air 06/09/20 20:00 61 06/09/20 20:00 96.4 61 20 113/46 (68) 93 06/09/20 16:00 96.7 67 19 140/76 (97) 98 06/09/20 15:14 58 06/09/20 12:00 98.7 79 19 140/71 (94) 96 06/09/20 11:41 66 Height (Feet): 5 Height (Inches): 3.00 Weight (Pounds): 183 General Appearance: no acute distress HEENT: mucous membranes moist Respiratory/Chest: no respiratory distress Cardiovascular: normal rate Abdomen: soft, non tender Extremities: no edema Neurologic/Psychiatric: alert, responsive, disoriented Laboratory Tests Test 06/10/20 08:00 White Blood Count 5.4 K/UL (4.8-10.8) Red Blood Count 2.75 M/UL (4.20-5.40) L Hemoglobin 9.0 G/DL (12.0-16.0) L Hematocrit 25.1 % (37.0-47.0) L Mean Corpuscular Volume 91 FL (80-99) Mean Corpuscular Hemoglobin 32.6 PG (27.0-31.0) H Mean Corpuscular Hemoglobin Concent 35.8 G/DL (32.0-36.0) Red Cell Distribution Width 16.5 % (11.6-14.8) H Platelet Count 246 K/UL (150-450) Mean Platelet Volume 6.9 FL (6.5-10.1) Neutrophils (%) (Auto) 58.6 % (45.0-75.0) Lymphocytes (%) (Auto) 30.7 % (20.0-45.0) Monocytes (%) (Auto) 7.6 % (1.0-10.0) Eosinophils (%) (Auto) 2.1 % (0.0-3.0) Basophils (%) (Auto) 1.0 % (0.0-2.0) Current Medications Medications (Trade) Dose Ordered Sig/Angie Route PRN Reason Start Time Stop Time Status Last Admin Dose Admin Acetaminophen (Tylenol) 650 mg Q6H PRN NG Fever >100.5 05/14/20 21:00 06/13/20 20:59 05/14/20 21:10 Acetaminophen (Tylenol) 650 mg Q6H PRN NG Mild Pain (Pain Scale 1-3) 05/14/20 21:00 06/13/20 20:59 05/17/20 11:06 Chlorhexidine Gluconate (Ruba-Hex 2%) 1 applic DAILY@1999 TOPIC 05/31/20 20:00 08/29/20 19:59 06/09/20 20:18 Clonidine HCl (Catapres Tab) 0.1 mg Q4H PRN ORAL sbp>170 05/11/20 17:15 08/09/20 17:14 Docusate Sodium (Colace) 100 mg TWICE A DAY ORAL 06/05/20 09:00 07/05/20 08:59 06/08/20 18:15 Furosemide (Lasix) 40 mg DAILY ORAL 06/09/20 09:00 07/09/20 08:59 Haloperidol Lactate (Haldol) 5 mg Q6H PRN IM Agitation 05/13/20 20:45 06/27/20 20:44 05/28/20 02:40 Heparin Sodium (Porcine) (Heparin 5000 units/ml) 5,000 units EVERY 12 HOURS SUBQ 05/25/20 21:00 07/09/20 20:59 06/10/20 08:51 Lactulose (Cephulac) 20 gm THREE TIMES A DAY ORAL 06/08/20 18:00 07/08/20 17:59 06/08/20 18:15 Lansoprazole (Prevacid) 30 mg BID ORAL 06/05/20 18:00 07/05/20 17:59 06/08/20 18:15 Levothyroxine Sodium (Synthroid) 50 mcg DAILY@0630 ORAL 05/14/20 06:30 06/13/20 06:29 06/06/20 06:22 Polyethylene Glycol (Miralax) 17 gm BEDTIME ORAL 05/25/20 21:00 06/24/20 20:59 06/09/20 21:28 Quetiapine Fumarate (SEROqueL) 50 mg Q12HR ORAL 06/09/20 21:00 07/24/20 20:59 06/09/20 21:28 Lei Chan MD Jun 10, 2020 10:21
--- NOTE | 2020-06-10 10:30 | Nephrology Progress Note ---
Assessment/Plan Problem List: (1) Renal failure (ARF), acute on chronic (2) Hypercapnic respiratory failure (3) CHF exacerbation (4) Anemia Assessment Azotemia/renal failure Acute respiratory failure most likely secondary to CHF, on mechanical ventilation History of COPD Hypertension Hyperlipemia Schizophrenia/psychosis Plan June 10: No CHEM panel drawn today. Check lab tomorrow. Continue per consultants. On room air oxygen June 09: Labs reviewed. Renal parameters stable. Continue per current treatment plan. June 08: Labs reviewed. Low potassium addressed. Continue per consultants. June 07: Stable renal parameters. Continue per consultants. Overall sta ble. June 06: Status quo. Remains on Venturi mask. Labs reviewed. Renal parameters stable. Continue per consultants. June 05: Lethargic. On Venturi mask. Labs reviewed. Returning bicarb. Continue to monitor ABG and electrolytes. Low potassium addressed. June 04: Remains on Venturi mask. No can panel done today. ABG results reviewed. Continue per pulmonary. June 03: Poor respiratory status. ABG noted. Patient hypoxic. Renal parameters somewhat stable. Continue per pulmonary. June 02: Labs reviewed. Low phosphorus replaced. Patient has periodic severe bradycardia. Continue per cardiology. June 01: Labs reviewed. Low magnesium replaced. Renal parameters stable. Hemoglobin level reasonable. Continue per consultants. May 31: Labs reviewed. Abnormal electrolytes at rest. Hemoglobin higher. Discussed with DARREL Cooper. Continue per consultants. May 30: Lab reviewed. Potassium and phosphorus replaced. Hemoglobin higher after transfusion. Continue per consultants. May 29: Lab reviewed. Patient anemic. Electrolyte abnormalities reviewed and addressed. Continue per consultants. Remains stable from renal standpoint of view. May 28: Patient was not transfused despite of my order since yesterday. Wi ll defer transfusion to PMD/residential sales representative. Patient remains stable from renal standpoint of view. Continue per consultants. Discussed with Marlene nursing charge in [place]. May 27: Remains on Venturi mask. Labs reviewed. Abnormal electrolytes addressed. Hemoglobin low. Will transfuse 1 unit of packed RBCs today May 26: On Venturi mask. Labs reviewed. Abnormal electrolytes addressed. Continue per consultants and pulmonary support. May 25: On Venturi mask. Lethargic. No labs drawn today. Will monitor renal parameters. Per orders. May 24: Remains extubated. Will start on diet with high alert for possible aspiration. Continue to monitor renal parameters. May 23: Continues to be extubated. On nonrebreathing mask. Labs reviewed. Renal parameters stable. Discussed with RN. Continue per current management. May 22: Now extubated on nonrebreathing mask. Labs reviewed. Renal parameters stable. Abnormal electrolytes addressed. Discussed with RN. May 21: Remains intubated. Labs reviewed. Abnormal electrolytes addressed. Discussed with RN. May 20: Remains intubated. Abnormal electrolyte noted on today's lab results and addressed. Continue per consultants. May 19: Patient remains intubated. Labs reviewed. Abnormal electrolytes addressed. Continue per current management. May 18: Patient seen in ICU. Remains intubated. Weaning is being tried. Discussed with RN. Labs reviewed. Abnormal electrolyte addressed. Continue per consultants. May 17: Labs reviewed. Remains intubated. Stable from renal standpoint of view. Continue weaning. Discussed with RN. May 16: Labs reviewed. Remains intubated. Remains full code. Stable from renal standpoint of view. Abnormal electrolytes addressed. May 15: Labs reviewed. Renal parameters stable. Discussed with RN. Patient remains intubated on ventilator and full code. Continue per consultants. May 14: Labs reviewed. Discussed with RN. Abnormal electrolyte addressed. Continue per current management. Patient seen in ICU. Discussed with RN. Today's labs pending. Patient remains on 6 mics of dopamine. Pulmonary support Monitor intake and output Monitor electrolytes Continue per consultants Per orders Subjective ROS Limited/Unobtainable: Yes Objective Objective Last 24 Hour Vital Signs Date Time Temp Pulse Resp B/P (MAP) Pulse Ox O2 Delivery O2 Flow Rate FiO2 06/10/20 08:15 95 Room Air 21 06/10/20 08:00 98.1 60 17 108/32 (57) 96 06/10/20 04:00 97.3 58 19 109/53 (71) 95 06/10/20 04:00 56 06/10/20 00:00 97.2 66 20 122/45 (70) 95 06/10/20 00:00 71 06/09/20 21:00 Room Air 06/09/20 20:00 61 06/09/20 20:00 96.4 61 20 113/46 (68) 93 06/09/20 16:00 96.7 67 19 140/76 (97) 98 06/09/20 15:14 58 06/09/20 12:00 98.7 79 19 140/71 (94) 96 06/09/20 11:41 66 Intake and Output 06/09/20 06/10/20 19:00 07:00 Intake Total 120 ml 150 ml Output Total 1200 ml Balance -1080 ml 150 ml Intake Oral 120 ml 150 ml Output Urine Total 1200 ml # Voids 3 1 # Bowel Movements 11 Laboratory Tests 06/10/20 08:00: White Blood Count 5.4, Red Blood Count 2.75L, Hemoglobin 9.0L, Hematocrit 25.1L, Mean Corpuscular Volume 91, Mean Corpuscular Hemoglobin 32.6H, Mean Corpuscular Hemoglobin Concent 35.8, Red Cell Distribution Width 16.5H, Platelet Count 246, Mean Platelet Volume 6.9, Neutrophils (%) (Auto) 58.6, Lymphocytes (%) (Auto) 30.7, Monocytes (%) (Auto) 7.6, Eosinophils (%) (Auto) 2.1, Basophils (%) (Auto) 1.0 Height (Feet): 5 Height (Inches): 3.00 Weight (Pounds): 183 General Appearance: no apparent distress Cardiovascular: normal rate Respiratory/Chest: decreased breath sounds Abdomen: distended Bryan Ochoa MD Jun 10, 2020 10:30
--- NOTE | 2020-06-10 11:38 | Pulmonology Progress Note ---
Subjective ROS Limited/Unobtainable: Yes Interval Events: pt refusing meds per nursing; pt self removed PICC line overnight Constitutional: Denies: fever HEENT: Repors: no symptoms Respiratory: Reports: no symptoms Cardiovascular: Reports: no symptoms Gastrointestinal/Abdominal: Reports: no symptoms Genitourinary: Reports: no symptoms Allergies: Coded Allergies: LITHIUM (Verified Allergy, Unknown, 02/07/19) Objective Last 24 Hour Vital Signs Date Time Temp Pulse Resp B/P (MAP) Pulse Ox O2 Delivery O2 Flow Rate FiO2 06/10/20 09:00 Room Air 06/10/20 08:15 95 Room Air 21 06/10/20 08:00 98.1 60 17 108/32 (57) 96 06/10/20 08:00 54 06/10/20 04:00 97.3 58 19 109/53 (71) 95 06/10/20 04:00 56 06/10/20 00:00 97.2 66 20 122/45 (70) 95 06/10/20 00:00 71 06/09/20 21:00 Room Air 06/09/20 20:00 61 06/09/20 20:00 96.4 61 20 113/46 (68) 93 06/09/20 16:00 96.7 67 19 140/76 (97) 98 06/09/20 15:14 58 06/09/20 12:00 98.7 79 19 140/71 (94) 96 06/09/20 11:41 66 Intake and Output 06/09/20 06/10/20 19:00 07:00 Intake Total 120 ml 150 ml Output Total 1200 ml Balance -1080 ml 150 ml Intake Oral 120 ml 150 ml Output Urine Total 1200 ml # Voids 3 1 # Bowel Movements 11 Objective 06/10 remains on room air; off isolation now 06/09 seen in tele; now saturating at 93-94% on room air 06/06 no change 06/05 now on 14L Ventimask saturating at high 90s 05/31 on Venturi mask saturating well 05/29/2020 now on 2 lpm NC saturating at 97%; in transfusion 05/28/2020 in SDU; currently on Venturi mask 14L FiO2 14L saturating well 05/27/2020 in SDU; s/p failed attempt at switching to NC due to patient non compliance; currently saturating low-mid 90s when she is actually on Venturi mask 14L 05/26/2020 in SDU; keeps taking off her NRB and desats to 79-80% 05/24/2020 in ICUD; restless, saturating ok with NC 05/19/2020 Pt in ICU; full code General Appearance: no acute distress HEENT: normocephalic Respiratory: no respiratory distress, decreased breath sounds Cardiovascular: normal rate Abdomen: soft, non tender, other - obese, NG tube Extremities: other - b/l 2+ pitting edema Neurologic: disoriented Laboratory Tests 06/10/20 08:00: White Blood Count 5.4, Red Blood Count 2.75L, Hemoglobin 9.0L, Hematocrit 25.1L, Mean Corpuscular Volume 91, Mean Corpuscular Hemoglobin 32.6H, Mean Corpuscular Hemoglobin Concent 35.8, Red Cell Distribution Width 16.5H, Platelet Count 246, Mean Platelet Volume 6.9, Neutrophils (%) (Auto) 58.6, Lymphocytes (%) (Auto) 30.7, Monocytes (%) (Auto) 7.6, Eosinophils (%) (Auto) 2.1, Basophils (%) (Auto) 1.0 Current Medications Medications (Trade) Dose Ordered Sig/Angie Route PRN Reason Start Time Stop Time Status Last Admin Dose Admin Acetaminophen (Tylenol) 650 mg Q6H PRN NG Fever >100.5 05/14/20 21:00 06/13/20 20:59 05/14/20 21:10 Acetaminophen (Tylenol) 650 mg Q6H PRN NG Mild Pain (Pain Scale 1-3) 05/14/20 21:00 06/13/20 20:59 05/17/20 11:06 Chlorhexidine Gluconate (Ruba-Hex 2%) 1 applic DAILY@2000 TOPIC 05/31/20 20:00 08/29/20 19:59 06/09/20 20:18 Clonidine HCl (Catapres Tab) 0.1 mg Q4H PRN ORAL sbp>170 05/11/20 17:15 08/09/20 17:14 Docusate Sodium (Colace) 100 mg TWICE A DAY ORAL 06/05/20 09:00 07/05/20 08:59 06/08/20 18:15 Furosemide (Lasix) 40 mg DAILY ORAL 06/09/20 09:00 07/09/20 08:59 Haloperidol Lactate (Haldol) 5 mg Q6H PRN IM Agitation 05/13/20 20:45 06/27/20 20:44 05/28/20 02:40 Heparin Sodium (Porcine) (Heparin 5000 units/ml) 5,000 units EVERY 12 HOURS SUBQ 05/25/20 21:00 07/09/20 20:59 06/10/20 08:51 Lactulose (Cephulac) 20 gm THREE TIMES A DAY ORAL 06/08/20 18:00 07/08/20 17:59 06/08/20 18:15 Lansoprazole (Prevacid) 30 mg BID ORAL 06/05/20 18:00 07/05/20 17:59 06/08/20 18:15 Levothyroxine Sodium (Synthroid) 50 mcg DAILY@0630 ORAL 05/14/20 06:30 06/13/20 06:29 06/06/20 06:22 Polyethylene Glycol (Miralax) 17 gm BEDTIME ORAL 05/25/20 21:00 06/24/20 20:59 06/09/20 21:28 Quetiapine Fumarate (SEROqueL) 50 mg Q12HR ORAL 06/09/20 21:00 07/24/20 20:59 06/09/20 21:28 Assessment/Plan Assessment/Plan 1. Bilateral COVID-19 multilobar pneumonia. - s/p ETT - Afebrile - s/p Azithromycin, Ceftriaxone, dexamethasone, and remdesivir - CXR 05/31 Patchy bilateral airspace consolidations, consistent with multifocal infiltrate, similar in appearance to previous study from 05/30; Stable, small bilateral pleural effusions. - COVID-19 PCR 06/02 inconclusive result - COVID-19 PCR 06/04 positive - now off isolation - provide supplemental oxygen as needed 2. Hx of COPD. 3. Schizophrenia/psychosis - On haloperidol per Dr. Hernandez; refusing all PO medications 4. Hypoxia. -Now room air; ABG better; saturating well - X-ray chest on 06/07 shows significantly improved bilateral pulmonary infiltrates - Now on oral Lasix 40 mg - off Diamox - recommend continued diuresis with ongoing BUN/Cr monitoring 5. Anemia; improved - Stool OB collection pending 6. SSS - plan for pacer noted; per cardio DVT ppx The care for this patient was discussed with my supervising physician Time spent for this case was approximately 31 minutes Trae Avilez Jun 10, 2020 11:38
[2020-06-10 12:00] VITALS: BP 114/39
--- NOTE | 2020-06-10 12:16 | Cardiac Electrophysiology PN ---
Assessment/Plan Assessment/Plan 1. Covid PNA and respiratory failure. S/P Remdesevir and Dexamethasone Self extubated on RA. Off Abx per ID. On Lasix [address] Myers 2. SSS with 8 pauses of more than 3 seconds including 9 and 10 second pauses off any QUEZADA or AVN blockers. Will need pacer consent from conservator/court and ID clearance 3. Hypotension. Off Dopamine.Tolerating Lasix. EF 55% 4. Schizophrenia and psychosis. 5. S/P MRSA & Klebsiella pneumonia treated DW RN and Dr Chan from ID Subjective Subjective Self extubated on 05/22/20 in Covid isolation S/P Left arm PICC line placement as has no iv access. Had multiple pauses of more than 3 seconds including a 4s and 7s and a 10 second pause at 1 AM on 05/31 Had pauses of 7, 8 and 6 seconds again 06/01/20 Conservator deferred authorization for PPM to court. Has positive blood Cx and ID clearance also pending pre pacer implant On RA No pauses last 3 days Objective Last 24 Hour Vital Signs Date Time Temp Pulse Resp B/P (MAP) Pulse Ox O2 Delivery O2 Flow Rate FiO2 06/10/20 09:00 Room Air 06/10/20 08:15 95 Room Air 21 06/10/20 08:00 98.1 60 17 108/32 (57) 96 06/10/20 08:00 54 06/10/20 04:00 97.3 58 19 109/53 (71) 95 06/10/20 04:00 56 06/10/20 00:00 97.2 66 20 122/45 (70) 95 06/10/20 00:00 71 06/09/20 21:00 Room Air 06/09/20 20:00 61 06/09/20 20:00 96.4 61 20 113/46 (68) 93 06/09/20 16:00 96.7 67 19 140/76 (97) 98 06/09/20 15:14 58 Intake and Output 06/09/20 06/10/20 19:00 07:00 Intake Total 120 ml 150 ml Output Total 1200 ml Balance -1080 ml 150 ml Intake Oral 120 ml 150 ml Output Urine Total 1200 ml # Voids 3 1 # Bowel Movements 11 Laboratory Tests Test 06/10/20 08:00 White Blood Count 5.4 K/UL (4.8-10.8) Red Blood Count 2.75 M/UL (4.20-5.40) L Hemoglobin 9.0 G/DL (12.0-16.0) L Hematocrit 25.1 % (37.0-47.0) L Mean Corpuscular Volume 91 FL (80-99) Mean Corpuscular Hemoglobin 32.6 PG (27.0-31.0) H Mean Corpuscular Hemoglobin Concent 35.8 G/DL (32.0-36.0) Red Cell Distribution Width 16.5 % (11.6-14.8) H Platelet Count 246 K/UL (150-450) Mean Platelet Volume 6.9 FL (6.5-10.1) Neutrophils (%) (Auto) 58.6 % (45.0-75.0) Lymphocytes (%) (Auto) 30.7 % (20.0-45.0) Monocytes (%) (Auto) 7.6 % (1.0-10.0) Eosinophils (%) (Auto) 2.1 % (0.0-3.0) Basophils (%) (Auto) 1.0 % (0.0-2.0) Objective HEAD AND NECK: Positive JVD. LUNGS: Decreased breath sounds. CARDIOVASCULAR: Regular S1 and S2 with no gallop. ABDOMEN: Obese. EXTREMITIES: Bilateral 2+ pitting edema. Cameron Davies MD Jun 10, 2020 12:16
--- NOTE | 2020-06-10 14:25 | Surgery Progress Note ---
Surgery Progress Note Subjective Additional Comments no acute events labs noted exam stable Objective Last 24 Hour Vital Signs Date Time Temp Pulse Resp B/P (MAP) Pulse Ox O2 Delivery O2 Flow Rate FiO2 06/10/20 12:00 98.0 60 18 114/39 (64) 96 06/10/20 09:00 Room Air 06/10/20 08:15 95 Room Air 21 06/10/20 08:00 98.1 60 17 108/32 (57) 96 06/10/20 08:00 54 06/10/20 04:00 97.3 58 19 109/53 (71) 95 06/10/20 04:00 56 06/10/20 00:00 97.2 66 20 122/45 (70) 95 06/10/20 00:00 71 06/09/20 21:00 Room Air 06/09/20 20:00 61 06/09/20 20:00 96.4 61 20 113/46 (68) 93 06/09/20 16:00 96.7 67 19 140/76 (97) 98 06/09/20 15:14 58 I&O Intake and Output 06/09/20 06/10/20 19:00 07:00 Intake Total 120 ml 150 ml Output Total 1200 ml Balance -1080 ml 150 ml Intake Oral 120 ml 150 ml Output Urine Total 1200 ml # Voids 3 1 # Bowel Movements 11 Dressing: saturated Cardiovascular: RSR Respiratory: decreased breath sounds Abdomen: soft, non-tender, present bowel sounds Extremities: no edema, no tenderness, no cyanosis Laboratory Tests Test 06/10/20 08:00 White Blood Count 5.4 K/UL (4.8-10.8) Red Blood Count 2.75 M/UL (4.20-5.40) L Hemoglobin 9.0 G/DL (12.0-16.0) L Hematocrit 25.1 % (37.0-47.0) L Mean Corpuscular Volume 91 FL (80-99) Mean Corpuscular Hemoglobin 32.6 PG (27.0-31.0) H Mean Corpuscular Hemoglobin Concent 35.8 G/DL (32.0-36.0) Red Cell Distribution Width 16.5 % (11.6-14.8) H Platelet Count 246 K/UL (150-450) Mean Platelet Volume 6.9 FL (6.5-10.1) Neutrophils (%) (Auto) 58.6 % (45.0-75.0) Lymphocytes (%) (Auto) 30.7 % (20.0-45.0) Monocytes (%) (Auto) 7.6 % (1.0-10.0) Eosinophils (%) (Auto) 2.1 % (0.0-3.0) Basophils (%) (Auto) 1.0 % (0.0-2.0) Plan Problems: (1) Anemia (2) Hypercapnic respiratory failure Assessment & Plan: respiratory insufficiency requiring prolonged ventilatory support unable to wean vent safely after multiple attempts discussed with pcp. discussed with pulm discussed with patient guardian. patient unable to consent. no nok or poa. given critical care and condition not recommended to await court decision which during pandemic can take long time. medically necessary to proceed with trach in patients best interest. self extubated will monitor DAILY ESTIMATED NEEDS: Needs based on Critical care, 70kg abw 22-28 kcals/kg 0415-3285 total kcals 1.2-2 g protein/kg 84-140 g total protein 20-25 mL/kg 9883-7279 total fluid mLs NUTRITION DIAGNOSIS: Swallowing difficulty r/t respiratory status as evidenced by pt orally intubated, was pending trach placement, s/p self-extubation on 05/22, now on texture modified diet. CURRENT DIET:REGULAR, puree w/ NTL PO DIET RECOMMENDATIONS: Maintain liberalized REGULAR diet/ texture per BARBED WIRE MACHINE OPERATOR ADDITIONAL RECOMMENDATIONS: 1) Calibrated bed scale wts 2) Rec bowel regimen -> now added 3) Monitor lytes, replete as needed 4) BARBED WIRE MACHINE OPERATOR f/up regarding texture clarification 5) Monitor PO intake and tolerance Ensure Enlive TID w/ meals w/ 3rd Ensure as pm snack to prevent am hypoglycemia (3) COVID-19 Assessment & Plan: ++ improving repeat (4) COPD (chronic obstructive pulmonary disease) (5) Psychosis (6) Renal failure (ARF), acute on chronic (7) CHF exacerbation (8) Hypoxia (9) Hypocalcemia (10) Bradycardia (11) Dyspnea (12) Dyspnea (13) Respiratory distress (14) Hyperlipidemia (15) Hypothyroidism (16) Hypothyroidism (17) Obese (18) Psychosis (19) Respiratory failure (20) Pneumonia (21) Acute and chronic respiratory failure (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
[2020-06-10] MEDS ORDERED: Lidocaine 1% Plain 30 ml INJ PRN (15:16)
[2020-06-10] MEDS ORDERED: Heparin1,000 units/500ml Premix(Conc:2 units/ml) IV PRN (15:16)
[2020-06-10 20:00] VITALS: BP 157/43
[2020-06-10] MEDS ORDERED: Dyna-Hex 2% Top Sol 2oz TOPIC SCH (20:00)
--- NOTE | 2020-06-10 20:24 | General Progress Note ---
Subjective Allergies: Coded Allergies: LITHIUM (Verified Allergy, Unknown, 02/07/19) Subjective above noted comfortable refusing medications but eating OK Objective Last 24 Hour Vital Signs Date Time Temp Pulse Resp B/P (MAP) Pulse Ox O2 Delivery O2 Flow Rate FiO2 06/10/20 16:00 60 06/10/20 12:00 98.0 60 18 114/39 (64) 96 06/10/20 12:00 58 06/10/20 09:00 Room Air 06/10/20 08:15 95 Room Air 21 06/10/20 08:00 98.1 60 17 108/32 (57) 96 06/10/20 08:00 54 06/10/20 04:00 97.3 58 19 109/53 (71) 95 06/10/20 04:00 56 06/10/20 00:00 97.2 66 20 122/45 (70) 95 06/10/20 00:00 71 06/09/20 21:00 Room Air Intake and Output 06/09/20 06/10/20 19:00 07:00 Intake Total 120 ml 150 ml Output Total 1200 ml Balance -1080 ml 150 ml Intake Oral 120 ml 150 ml Output Urine Total 1200 ml # Voids 3 1 # Bowel Movements 11 Laboratory Tests 06/10/20 08:00: White Blood Count 5.4, Red Blood Count 2.75L, Hemoglobin 9.0L, Hematocrit 25.1L, Mean Corpuscular Volume 91, Mean Corpuscular Hemoglobin 32.6H, Mean Corpuscular Hemoglobin Concent 35.8, Red Cell Distribution Width 16.5H, Platelet Count 246, Mean Platelet Volume 6.9, Neutrophils (%) (Auto) 58.6, Lymphocytes (%) (Auto) 30.7, Monocytes (%) (Auto) 7.6, Eosinophils (%) (Auto) 2.1, Basophils (%) (Auto) 1.0 Height (Feet): 5 Height (Inches): 3.00 Weight (Pounds): 183 Objective WDWN WW NCAT CTA RR abd soft no edema Assessment/Plan Status: progressing, unchanged, deteriorating Assessment/Plan: Assessment/Plan (1) Hypertension (2) Schizophrenia (3) Hyperlipidemia (4) Parkinson disease (5) Anemia (6) Obese (7) COVID (+) (8) Hypoxia (9) arrhythmia Recommendations PPI BID Follow H&H Transfuse to keep Hg>7.0 po as tolerated GI procedures at a later date, if needed bowel regimen possible pacemaker placement Aria Chicas MD Jun 10, 2020 20:24
[2020-06-10] MEDS: Miralax 17gm pkt ORAL SCH (21:00)
--- NOTE | 2020-06-10 21:13 | General Progress Note ---
Subjective ROS Limited/Unobtainable: Yes Allergies: Coded Allergies: LITHIUM (Verified Allergy, Unknown, 02/07/19) Objective Last 24 Hour Vital Signs Date Time Temp Pulse Resp B/P (MAP) Pulse Ox O2 Delivery O2 Flow Rate FiO2 06/10/20 20:20 96 Room Air 21 06/10/20 16:00 60 06/10/20 12:00 98.0 60 18 114/39 (64) 96 06/10/20 12:00 58 06/10/20 09:00 Room Air 06/10/20 08:15 95 Room Air 21 06/10/20 08:00 98.1 60 17 108/32 (57) 96 06/10/20 08:00 54 06/10/20 04:00 97.3 58 19 109/53 (71) 95 06/10/20 04:00 56 06/10/20 00:00 97.2 66 20 122/45 (70) 95 06/10/20 00:00 71 Intake and Output 06/09/20 06/10/20 19:00 07:00 Intake Total 120 ml 150 ml Output Total 1200 ml Balance -1080 ml 150 ml Intake Oral 120 ml 150 ml Output Urine Total 1200 ml # Voids 3 1 # Bowel Movements 11 Laboratory Tests 06/10/20 08:00: White Blood Count 5.4, Red Blood Count 2.75L, Hemoglobin 9.0L, Hematocrit 25.1L, Mean Corpuscular Volume 91, Mean Corpuscular Hemoglobin 32.6H, Mean Corpuscular Hemoglobin Concent 35.8, Red Cell Distribution Width 16.5H, Platelet Count 246, Mean Platelet Volume 6.9, Neutrophils (%) (Auto) 58.6, Lymphocytes (%) (Auto) 30.7, Monocytes (%) (Auto) 7.6, Eosinophils (%) (Auto) 2.1, Basophils (%) (Auto) 1.0 Height (Feet): 5 Height (Inches): 3.00 Weight (Pounds): 183 Assessment/Plan Problem List: (1) Anemia ICD Codes: D64.9 - Anemia, unspecified SNOMED: 358059418 (2) Hypercapnic respiratory failure ICD Codes: J96.92 - Respiratory failure, unspecified with hypercapnia SNOMED: 992916667 (3) COVID-19 ICD Codes: U07.1 - COVID-19 SNOMED: 573643747 (4) COPD (chronic obstructive pulmonary disease) ICD Codes: J44.9 - Chronic obstructive pulmonary disease, unspecified SNOMED: 54097088 (5) Psychosis ICD Codes: F29 - Unspecified psychosis not due to a substance or known physiological condition SNOMED: 26541847 (6) Hypoxia ICD Codes: R09.02 - Hypoxemia SNOMED: 175568667 (7) Renal failure (ARF), acute on chronic ICD Codes: N17.9 - Acute kidney failure, unspecified; N18.9 - Chronic kidney disease, unspecified SNOMED: 647508831 (8) CHF exacerbation ICD Codes: I50.9 - Heart failure, unspecified SNOMED: 532698088, [id number] Status: progressing, unchanged, deteriorating Assessment/Plan: patient benefits from having picc line to administrate live saving meds according to dr pichardo pt will benefit from pacemaker due to severe bradycardia and pause covid positive pna sepsis copd exac chf exac Dani Perera MD Jun 10, 2020 21:13
[2020-06-11] VITALS: BP 121/39
--- NOTE | 2020-06-11 06:25 | Hematology/Onc Progress Note ---
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 ( combination of moderate aortic regurgitation and severe mitral regurgitation) --> diuresis as per cards --> lasix last time # Severe ascending aortic dilatation --> per Dr Keke campbell --> meds reviewed # Hypertension # Parkinson disease # Hyperlipidemia # Hypothyroidism # Dementia # Obesity # Schizophrenia --> as per [facility] --> restraints # Dvt ppx heparin sq Appreciate remediation consultant care and alexei Rn Subjective HEENT: Denies: no symptoms, eye pain, blurred vision, tearing, double vision, ear pain, ear discharge, nose pain, nose congestion, throat pain, throat swelling, mouth pain, mouth swelling, other Cardiovascular: Denies: no symptoms, chest pain, edema, irregular heart rate, lightheadedness, palpitations, syncope, other Gastrointestinal/Abdominal: Denies: no symptoms, abdomen distended, abdominal pain, black stools, tarry stools, blood in stool, constipated, diarrhea, difficulty swallowing, nausea, poor appetite, poor fluid intake, rectal bleeding, vomiting, other Genitourinary: Denies: no symptoms, burning, discharge, frequency, flank pain, hematuria, incontinence, pain, urgency, other Neurologic/Psychiatric: Denies: no symptoms, anxiety, depressed, emotional problems, headache, numbness, paresthesia, pre-existing deficit, seizure, tingling, tremors, weakness, other Endocrine: Denies: no symptoms, excessive sweating, flushing, intolerance to cold, intolerance to heat, increased hunger, increased thirst, increased urine, unexplained weight gain, unexplained weight loss, other Allergies: Coded Allergies: LITHIUM (Verified Allergy, Unknown, 02/07/19) Subjective 06/01 nonrebreather, 15L, some mild pain in back, chest, no night sweats 06/02 remains on nonrebreather, labs are noted, no bleeding or night sweats 06/03 labs reviewed, meds noted, nonrebreather, c02 was elevated, to inform pulm 06/04 labs reviewed, meds noted, on NR, no night sweats, meds noted 06/05 is on 15lnc venturi mask, is covid iso, labs noted 06/06 labs reviewed, on venturi mask, on b/l soft wrists, meds noted 06/08 labs reviewed, on nc, no bleeding, with picc line, cbc ordered 06/09 labs reviewed, confused, on 3l nc, no night sweats, meds reviewed 06/10 is off restraints, left picc has been removed, no new changes 06/11 remains confused, is to have picc placed, per public guardian Objective Objective Current Medications Medications (Trade) Dose Ordered Sig/Angie Route PRN Reason Start Time Stop Time Status Last Admin Dose Admin Acetaminophen (Tylenol) 650 mg Q6H PRN NG Fever >100.5 05/14/20 21:00 06/13/20 20:59 05/14/20 21:10 Acetaminophen (Tylenol) 650 mg Q6H PRN NG Mild Pain (Pain Scale 1-3) 05/14/20 21:00 06/13/20 20:59 05/17/20 11:06 Chlorhexidine Gluconate (Ruba-Hex 2%) 1 applic DAILY@1999 TOPIC 06/10/20 20:00 09/08/20 19:59 Clonidine HCl (Catapres Tab) 0.1 mg Q4H PRN ORAL sbp>170 05/11/20 17:15 08/09/20 17:14 Docusate Sodium (Colace) 100 mg TWICE A DAY ORAL 06/05/20 09:00 07/05/20 08:59 06/08/20 18:15 Furosemide (Lasix) 40 mg DAILY ORAL 06/09/20 09:00 07/09/20 08:59 Haloperidol Lactate (Haldol) 5 mg Q6H PRN IM Agitation 05/13/20 20:45 06/27/20 20:44 05/28/20 02:40 Heparin Sodium (Porcine) (Heparin 5000 units/ml) 5,000 units EVERY 12 HOURS SUBQ 05/25/20 21:00 07/09/20 20:59 06/10/20 08:51 Lactulose (Cephulac) 20 gm THREE TIMES A DAY ORAL 06/08/20 18:00 07/08/20 17:59 06/08/20 18:15 Lansoprazole (Prevacid) 30 mg BID ORAL 06/05/20 18:00 07/05/20 17:59 06/08/20 18:15 Levothyroxine Sodium (Synthroid) 50 mcg DAILY@0630 ORAL 05/14/20 06:30 06/13/20 06:29 06/06/20 06:22 Polyethylene Glycol (Miralax) 17 gm BEDTIME ORAL 05/25/20 21:00 06/24/20 20:59 06/09/20 21:28 Quetiapine Fumarate (SEROqueL) 50 mg Q12HR ORAL 06/09/20 21:00 07/24/20 20:59 06/09/20 21:28 Last 24 Hour Vital Signs Date Time Temp Pulse Resp B/P (MAP) Pulse Ox O2 Delivery O2 Flow Rate FiO2 06/11/20 04:00 61 06/11/20 00:00 59 18 121/39 (66) 06/11/20 00:00 55 06/10/20 21:00 Room Air 06/10/20 20:20 96 Room Air 21 06/10/20 20:00 59 18 157/43 (81) 06/10/20 20:00 90 06/10/20 16:00 60 06/10/20 12:00 98.0 60 18 114/39 (64) 96 06/10/20 12:00 58 06/10/20 09:00 Room Air 06/10/20 08:15 95 Room Air 21 06/10/20 08:00 98.1 60 17 108/32 (57) 96 06/10/20 08:00 54 06/10/20 04:00 97.3 58 19 109/53 (71) 95 06/10/20 04:00 56 06/10/20 00:00 97.2 66 20 122/45 (70) 95 06/10/20 00:00 71 06/09/20 21:00 Room Air 06/09/20 20:00 61 06/09/20 20:00 96.4 61 20 113/46 (68) 93 06/09/20 16:00 96.7 67 19 140/76 (97) 98 06/09/20 15:14 58 06/09/20 12:00 98.7 79 19 140/71 (94) 96 06/09/20 11:41 66 06/09/20 09:00 Nasal Cannula 3.0 06/09/20 08:00 96.7 81 18 141/67 (91) 98 06/09/20 07:46 58 Intake and Output 06/10/20 06/11/20 19:00 07:00 # Voids 3 Labs Test 06/08/20 12:00 06/09/20 06:45 06/10/20 08:00 White Blood Count 5.6 K/UL (4.8-10.8) 7.5 K/UL (4.8-10.8) 5.4 K/UL (4.8-10.8) Red Blood Count 2.94 M/UL (4.20-5.40) 2.89 M/UL (4.20-5.40) 2.75 M/UL (4.20-5.40) Hemoglobin 9.4 G/DL (12.0-16.0) 9.2 G/DL (12.0-16.0) 9.0 G/DL (12.0-16.0) Hematocrit 27.6 % (37.0-47.0) 27.5 % (37.0-47.0) 25.1 % (37.0-47.0) Mean Corpuscular Volume 94 FL (80-99) 95 FL (80-99) 91 FL (80-99) Mean Corpuscular Hemoglobin 32.0 PG (27.0-31.0) 32.0 PG (27.0-31.0) 32.6 PG (27.0-31.0) Mean Corpuscular Hemoglobin Concent 34.1 G/DL (32.0-36.0) 33.6 G/DL (32.0-36.0) 35.8 G/DL (32.0-36.0) Red Cell Distribution Width 17.1 % (11.6-14.8) 17.0 % (11.6-14.8) 16.5 % (11.6-14.8) Platelet Count 235 K/UL (150-450) 251 K/UL (150-450) 246 K/UL (150-450) Mean Platelet Volume 7.2 FL (6.5-10.1) 7.1 FL (6.5-10.1) 6.9 FL (6.5-10.1) Neutrophils (%) (Auto) 57.5 % (45.0-75.0) 68.5 % (45.0-75.0) 58.6 % (45.0-75.0) Lymphocytes (%) (Auto) 30.8 % (20.0-45.0) 21.9 % (20.0-45.0) 30.7 % (20.0-45.0) Monocytes (%) (Auto) 8.5 % (1.0-10.0) 6.6 % (1.0-10.0) 7.6 % (1.0-10.0) Eosinophils (%) (Auto) 2.5 % (0.0-3.0) 2.1 % (0.0-3.0) 2.1 % (0.0-3.0) Basophils (%) (Auto) 0.7 % (0.0-2.0) 0.9 % (0.0-2.0) 1.0 % (0.0-2.0) Sodium Level 138 MMOL/L (136-145) Potassium Level 3.5 MMOL/L (3.5-5.1) Chloride Level 99 MMOL/L (98-107) Carbon Dioxide Level 35 MMOL/L (21-32) Anion Gap 4 mmol/L (5-15) Blood Urea Nitrogen 48 mg/dL (7-18) Creatinine 1.3 MG/DL (0.55-1.30) Estimat Glomerular Filtration Rate 39.4 mL/min (>60) Glucose Level 86 MG/DL (74-106) Calcium Level 9.3 MG/DL (8.5-10.1) Total Bilirubin 1.3 MG/DL (0.2-1.0) Direct Bilirubin 0.3 MG/DL (0.0-0.3) Aspartate Amino Transf (AST/SGOT) 19 U/L (15-37) Alanine Aminotransferase (ALT/SGPT) 13 U/L (12-78) Alkaline Phosphatase 48 U/L (46-116) Total Protein 7.6 G/DL (6.4-8.2) Albumin 3.4 G/DL (3.4-5.0) Globulin 4.2 g/dL Albumin/Globulin Ratio 0.8 (1.0-2.7) Free Thyroxine < 0.40 NG/DL (0.76-1.46) Height (Feet): 5 Height (Inches): 3.00 Weight (Pounds): 183 Objective Physical Exam: Vitals: reviewed General: NAD HEENT: nc, at Neck: supple Chest: decreased breath sounds bilaterally, crackles+++ 15L NRM Cardiovascular: RRR, no s3, s4 Abdomen: soft, nontender, nd Extremities: 1-2 + edema Neuro: nonverbal Frank Escobar MD Jun 11, 2020 06:25
--- NOTE | 2020-06-11 07:14 | Consultation ---
DATE OF CONSULTATION: 06/08/2020 CONSULTING PHYSICIAN: Kirk Vidal MD CHIEF COMPLAINT: Constipation. HISTORY OF PRESENT ILLNESS: Most of history per chart. Patient is a poor historian. An 79-year-old female admitted to the hospital with shortness of breath with COPD exacerbation. Patient has a long stay in the hospital complicated with dysphagia at one point, requiring NG tube placement, now is off of NG tube. Patient has been severely constipated, so GI consultation requested for evaluation. PAST MEDICAL HISTORY: 1. Dementia. 2. Parkinson disease. 3. Seizure disorder. 4. History of congestive heart failure. 5. Hypertension. 6. DVT. 7. COPD. 8. Anxiety. 9. Anemia. 10. Diabetes. PAST SURGICAL HISTORY: Unknown. ALLERGIES: To lithium. MEDICATIONS: Please see medication reconciliation list. FAMILY HISTORY: Noncontributory. SOCIAL HISTORY: There is no history of tobacco, alcohol, or drug abuse. REVIEW OF SYSTEMS: Unable to obtain. PHYSICAL EXAMINATION: VITAL SIGNS: Temperature is 98.2, pulse is 58, respirations 20, blood pressure is 132/65. HEENT: Normocephalic, atraumatic. Mild pale conjunctivae. NECK: Supple. No evidence of obvious lymphadenopathy. CARDIOVASCULAR: Regular rate and rhythm. Plus S1-S2. LUNGS: Decreased breath sounds bilaterally based on the supine exam. ABDOMEN: Soft, nontender. No rebound. No guarding. No peritoneal sign. EXTREMITIES: No cyanosis. No clubbing. No edema. LABORATORY DATA: White count is 5, hemoglobin 9.3, hematocrit 28, platelets 200. Sodium 140, potassium 3.3, BUN 50, creatinine is 1.3. Bilirubin is 1.4, direct is 0.4. Albumin is low at 3.2. Patient's iron saturation 13% latest. ASSESSMENT: This is an 79-year-old female from GI standpoint has constipation, hypothyroidism, anemia, iron deficiency, hypoalbuminemia. PLAN: Patient was given a bowel regimen including lactulose and Dulcolax suppository. We will follow on daily basis. Consider doing x-ray tomorrow if patient has no BM by tomorrow. We can order thyroid panel to rule out hypothyroidism. Monitor CBC on a daily basis. Order stool for OB. Kirk Emerita Vidal DR: ANA LAURA JOB#: [id number] CC:
[2020-06-11] MEDS: Heparin 5000 units/ml inj SUBQ SCH ×2 (07:42→21:00)
[2020-06-11 08:00] VITALS: BP 121/92
[2020-06-11 10:43] LABS: BASOPHILS % (AUTO) 1.3 % (0.0-2.0); EOSINOPHILS % (AUTO) 2.4 % (0.0-3.0); HEMATOCRIT 26.9 % (37.0-47.0); HEMOGLOBIN 9.5 G/DL (12.0-16.0); LYMPHOCYTES % (AUTO) 30.9 % (20.0-45.0); MEAN CORPUSCULAR VOLUME 91 FL (80-99); MONOCYTES % (AUTO) 8.2 % (1.0-10.0); NEUTROPHILS % (AUTO) 57.2 % (45.0-75.0); PLATELET COUNT 277 K/UL (150-450); RED BLOOD COUNT 2.96 M/UL (4.20-5.40); RED CELL DISTRIBUTION WIDTH 17.8 % (11.6-14.8)
[2020-06-11 11:11] LABS: ALANINE AMINOTRANSFERASE < 6 U/L (12-78); ALBUMIN 3.5 G/DL (3.4-5.0); ALBUMIN/GLOBULIN RATIO 0.8 (1.0-2.7); ALKALINE PHOSPHATASE 48 U/L (46-116); ANION GAP 6 mmol/L (5-15); ASPARTATE AMINO TRANSFERASE 20 U/L (15-37); BILIRUBIN,TOTAL 1.2 MG/DL (0.2-1.0); BLOOD UREA NITROGEN 38 mg/dL (7-18); CALCIUM 9.1 MG/DL (8.5-10.1); CARBON DIOXIDE 33 MMOL/L (21-32); CHLORIDE 96 MMOL/L (98-107); CREATININE 1.3 MG/DL (0.55-1.30); PHOSPHORUS 2.9 MG/DL (2.5-4.9); SODIUM 135 MMOL/L (136-145)
[2020-06-11 11:15] LABS: BILIRUBIN,DIRECT 0.4 MG/DL (0.0-0.3)
[2020-06-11] MEDS: Lactulose 20gm/30ml UDC ORAL SCH ×3 (11:20→17:44)
[2020-06-11] MEDS: Furosemide 40mg tab ORAL SCH (11:22)
[2020-06-11 12:00] VITALS: BP 107/70
--- NOTE | 2020-06-11 12:43 | Pulmonology Progress Note ---
Subjective ROS Limited/Unobtainable: Yes Interval Events: none major reported per nursing Constitutional: Denies: fever HEENT: Repors: no symptoms Respiratory: Reports: no symptoms Cardiovascular: Reports: no symptoms Gastrointestinal/Abdominal: Reports: no symptoms Genitourinary: Reports: no symptoms Allergies: Coded Allergies: LITHIUM (Verified Allergy, Unknown, 02/07/19) Objective Last 24 Hour Vital Signs Date Time Temp Pulse Resp B/P (MAP) Pulse Ox O2 Delivery O2 Flow Rate FiO2 06/11/20 09:00 Room Air 06/11/20 08:00 97.7 66 20 121/92 (102) 96 06/11/20 08:00 57 06/11/20 04:00 61 06/11/20 00:00 59 18 121/39 (66) 06/11/20 00:00 55 06/10/20 21:00 Room Air 06/10/20 20:20 96 Room Air 21 06/10/20 20:00 59 18 157/43 (81) 06/10/20 20:00 90 06/10/20 16:00 60 Intake and Output 06/10/20 06/11/20 19:00 07:00 # Voids 3 Objective 06/11 no change 06/10 remains on room air; off isolation now 06/09 seen in tele; now saturating at 93-94% on room air 06/06 no change 06/05 now on 14L Ventimask saturating at high 90s 05/31 on Venturi mask saturating well 05/29/2020 now on 2 lpm NC saturating at 97%; in transfusion 05/28/2020 in SDU; currently on Venturi mask 14L FiO2 14L saturating well 05/27/2020 in SDU; s/p failed attempt at switching to NC due to patient noncompliance; currently saturating low-mid 90s when she is actually on Venturi mask 14L 05/26/2020 in SDU; keeps taking off her NRB and desats to 79-80% 05/24/2020 in ICUD; restless, saturating ok with NC 05/19/2020 Pt in ICU; full code General Appearance: no acute distress HEENT: normocephalic Respiratory: no respiratory distress, decreased breath sounds Cardiovascular: normal rate Abdomen: soft, non tender, other - obese Extremities: other - b/l 2+ pitting edema Neurologic: disoriented Laboratory Tests 06/11/20 10:05: White Blood Count 7.0, Red Blood Count 2.96L, Hemoglobin 9.5L, Hematocrit 26.9L, Mean Corpuscular Volume 91, Mean Corpuscular Hemoglobin 32.1H, Mean Corpuscular Hemoglobin Concent 35.3, Red Cell Distribution Width 17.8H, Platelet Count 277, Mean Platelet Volume 6.4L, Neutrophils (%) (Auto) 57.2, Lymphocytes (%) (Auto) 30.9, Monocytes (%) (Auto) 8.2, Eosinophils (%) (Auto) 2.4, Basophils (%) (Auto) 1.3, Sodium Level 135L, Potassium Level 3.0L, Chloride Level 96L, Carbon Dioxide Level 33H, Anion Gap 6, Blood Urea Nitrogen 38H, Creatinine 1.3, Estimat Glomerular Filtration Rate 39.4, Glucose Level 115H, Calcium Level 9.1, Phosphorus Level 2.9, Magnesium Level 2.3, Total Bilirubin 1.2H, Direct Bilirubin 0.4H, Aspartate Amino Transf (AST/SGOT) 20, Alanine Aminotransferase (ALT/SGPT) < 6L, Alkaline Phosphatase 48, Total Protein 7.8, Albumin 3.5, Globulin 4.3, Albumin/Globulin Ratio 0.8L Current Medications Medications (Trade) Dose Ordered Sig/Angie Route PRN Reason Start Time Stop Time Status Last Admin Dose Admin Acetaminophen (Tylenol) 650 mg Q6H PRN NG Fever >100.5 05/14/20 21:00 06/13/20 20:59 05/14/20 21:10 Acetaminophen (Tylenol) 650 mg Q6H PRN NG Mild Pain (Pain Scale 1-3) 05/14/20 21:00 06/13/20 20:59 05/17/20 11:06 Chlorhexidine Gluconate (Ruba-Hex 2%) 1 applic DAILY@1999 TOPIC 06/10/20 20:00 09/08/20 19:59 Clonidine HCl (Catapres Tab) 0.1 mg Q4H PRN ORAL sbp>170 05/11/20 17:15 08/09/20 17:14 Docusate Sodium (Colace) 100 mg TWICE A DAY ORAL 06/05/20 09:00 07/05/20 08:59 06/08/20 18:15 Furosemide (Lasix) 40 mg DAILY ORAL 06/09/20 09:00 07/09/20 08:59 06/11/20 11:22 Haloperidol Lactate (Haldol) 5 mg Q6H PRN IM Agitation 05/13/20 20:45 06/27/20 20:44 05/28/20 02:40 Heparin Sodium (Porcine) (Heparin 5000 units/ml) 5,000 units EVERY 12 HOURS SUBQ 05/25/20 21:00 07/09/20 20:59 06/10/20 08:51 Lactulose (Cephulac) 20 gm THREE TIMES A DAY ORAL 06/08/20 18:00 07/08/20 17:59 06/11/20 11:20 Lansoprazole (Prevacid) 30 mg BID ORAL 06/05/20 18:00 07/05/20 17:59 06/11/20 11:21 Levothyroxine Sodium (Synthroid) 50 mcg DAILY@0630 ORAL 05/14/20 06:30 06/13/20 06:29 06/06/20 06:22 Polyethylene Glycol (Miralax) 17 gm BEDTIME ORAL 05/25/20 21:00 06/24/20 20:59 06/09/20 21:28 Quetiapine Fumarate (SEROqueL) 50 mg Q12HR ORAL 06/09/20 21:00 07/24/20 20:59 06/11/20 11:20 Assessment/Plan Assessment/Plan 1. Bilateral COVID-19 multilobar pneumonia. - s/p ETT - Afebrile - s/p Azithromycin, Ceftriaxone, dexamethasone, and remdesivir - CXR 05/31 Patchy bilateral airspace consolidations, consistent with multifocal infiltrate, similar in appearance to previous study from 05/30; Stable, small bilateral pleural effusions. - COVID-19 PCR 06/02 inconclusive result - COVID-19 PCR 06/04 positive - now off isolation - provide supplemental oxygen as needed 2. Hx of COPD. 3. Schizophrenia/psychosis - On haloperidol per Dr. Hernandez; refusing all PO medications 4. Hypoxia. -Now room air; ABG better; saturating well - X-ray chest on 06/07 shows significantly improved bilateral pulmonary infiltrates - Now on oral Lasix 40 mg - off Diamox - recommend continued diuresis with ongoing BUN/Cr monitoring 5. Anemia; improved - Stool OB collection pending 6. SSS - plan for pacer noted; per cardio DVT ppx The care for this patient was discussed with my supervising physician Time spent for this case was approximately 31 minutes Trae Avilez Jun 11, 2020 12:43
[2020-06-11] MEDS: Docusate 100mg/10ml Liq ORAL SCH ×2 (14:21→18:00)
--- NOTE | 2020-06-11 15:13 | Cardiac Electrophysiology PN ---
Assessment/Plan Assessment/Plan 1. Covid PNA and respiratory failure. S/P Remdesevir and Dexamethasone Self extubated on RA. Off Abx per ID. On Lasix [address] Myers 2. SSS with 8 pauses of more than 3 seconds including 9 and 10 second pauses off any QUEZADA or AVN blockers. Will need pacer consent from conservator/court and ID clearance 3. Hypotension. Off Dopamine. EF 55% 4. Schizophrenia and psychosis. 5. S/P MRSA & Klebsiella pneumonia YOSELYN RN and Dr Chan from ID Subjective Subjective Self extubated on 05/22/20 in Covid isolation S/P Left arm PICC line placement as has no iv access. Had multiple pauses of more than 3 seconds including a 4s and 7s and a 10 second pause at 1 AM on 05/31 Had pauses of 7, 8 and 6 seconds again 06/01/20 Had positive blood Cx and ID clearance pending pre pacer implant On RA Objective Last 24 Hour Vital Signs Date Time Temp Pulse Resp B/P (MAP) Pulse Ox O2 Delivery O2 Flow Rate FiO2 06/11/20 12:00 97.5 57 20 107/70 (82) 95 06/11/20 12:00 57 06/11/20 09:00 Room Air 06/11/20 08:00 97.7 66 20 121/92 (102) 96 06/11/20 08:00 57 06/11/20 07:00 96 Room Air 21 06/11/20 04:00 61 06/11/20 00:00 59 18 121/39 (66) 06/11/20 00:00 55 06/10/20 21:00 Room Air 06/10/20 20:20 96 Room Air 21 06/10/20 20:00 59 18 157/43 (81) 06/10/20 20:00 90 06/10/20 16:00 60 Intake and Output 06/10/20 06/11/20 19:00 07:00 # Voids 3 Laboratory Tests Test 06/11/20 10:05 White Blood Count 7.0 K/UL (4.8-10.8) Red Blood Count 2.96 M/UL (4.20-5.40) L Hemoglobin 9.5 G/DL (12.0-16.0) L Hematocrit 26.9 % (37.0-47.0) L Mean Corpuscular Volume 91 FL (80-99) Mean Corpuscular Hemoglobin 32.1 PG (27.0-31.0) H Mean Corpuscular Hemoglobin Concent 35.3 G/DL (32.0-36.0) Red Cell Distribution Width 17.8 % (11.6-14.8) H Platelet Count 277 K/UL (150-450) Mean Platelet Volume 6.4 FL (6.5-10.1) L Neutrophils (%) (Auto) 57.2 % (45.0-75.0) Lymphocytes (%) (Auto) 30.9 % (20.0-45.0) Monocytes (%) (Auto) 8.2 % (1.0-10.0) Eosinophils (%) (Auto) 2.4 % (0.0-3.0) Basophils (%) (Auto) 1.3 % (0.0-2.0) Sodium Level 135 MMOL/L (136-145) L Potassium Level 3.0 MMOL/L (3.5-5.1) L Chloride Level 96 MMOL/L (98-107) L Carbon Dioxide Level 33 MMOL/L (21-32) H Anion Gap 6 mmol/L (5-15) Blood Urea Nitrogen 38 mg/dL (7-18) H Creatinine 1.3 MG/DL (0.55-1.30) Estimat Glomerular Filtration Rate 39.4 mL/min (>60) Glucose Level 115 MG/DL (74-106) H Calcium Level 9.1 MG/DL (8.5-10.1) Phosphorus Level 2.9 MG/DL (2.5-4.9) Magnesium Level 2.3 MG/DL (1.8-2.4) Total Bilirubin 1.2 MG/DL (0.2-1.0) H Direct Bilirubin 0.4 MG/DL (0.0-0.3) H Aspartate Amino Transf (AST/SGOT) 20 U/L (15-37) Alanine Aminotransferase (ALT/SGPT) < 6 U/L (12-78) L Alkaline Phosphatase 48 U/L (46-116) Total Protein 7.8 G/DL (6.4-8.2) Albumin 3.5 G/DL (3.4-5.0) Globulin 4.3 g/dL Albumin/Globulin Ratio 0.8 (1.0-2.7) L Objective HEAD AND NECK: Positive JVD. LUNGS: Decreased breath sounds. CARDIOVASCULAR: Regular S1 and S2 with no gallop. ABDOMEN: Obese. EXTREMITIES: Bilateral 2+ pitting edema. Cameron Davies MD Jun 11, 2020 15:13
--- NOTE | 2020-06-11 15:24 | Nephrology Progress Note ---
Assessment/Plan Problem List: (1) Renal failure (ARF), acute on chronic (2) Hypercapnic respiratory failure (3) CHF exacerbation (4) Anemia Assessment Azotemia/renal failure Acute respiratory failure most likely secondary to CHF, on mechanical ventilation History of COPD Hypertension Hyperlipemia Schizophrenia/psychosis Plan June 11: Labs reviewed. Low potassium noted and addressed. Continue per consultants. Continue to monitor renal parameters. June 10: No CHEM panel drawn today. Check lab tomorrow. Continue per consultants. On room air oxygen June 09: Labs reviewed. Renal parameters stable. Continue per current treatment plan. June 08: Labs reviewed. Low potassium addressed. Continue per consultants. June 07: Stable renal parameters. Continue per consultants. Overall stab le. June 06: Status quo. Remains on Venturi mask. Labs reviewed. Renal parameters stable. Continue per consultants. June 05: Lethargic. On Venturi mask. Labs reviewed. Returning bicarb. Continue to monitor ABG and electrolytes. Low potassium addressed. June 04: Remains on Venturi mask. No can panel done today. ABG results reviewed. Continue per pulmonary. June 03: Poor respiratory status. ABG noted. Patient hypoxic. Renal parameters somewhat stable. Continue per pulmonary. June 02: Labs reviewed. Low phosphorus replaced. Patient has periodic severe bradycardia. Continue per cardiology. June 01: Labs reviewed. Low magnesium replaced. Renal parameters stable. Hemoglobin level reasonable. Continue per consultants. May 31: Labs reviewed. Abnormal electrolytes at rest. Hemoglobin higher. Discussed with DARREL Cooper. Continue per consultants. May 30: Lab reviewed. Potassium and phosphorus replaced. Hemoglobin higher after transfusion. Continue per consultants. May 29: Lab reviewed. Patient anemic. Electrolyte abnormalities reviewed and addressed. Continue per consultants. Remains stable from renal standpoint of view. May 28: Patient was not transfused despite of my order since yesterday. Will defer transfusion to PMD/transfer clerk. Patient remains stable from renal standpoint of view. Continue per consultants. Discussed with Marlene nursing charge in [place]. May 27: Remains on Venturi mask. Labs reviewed. Abnormal electrolytes addressed. Hemoglobin low. Will transfuse 1 unit of packed RBCs today May 26: On Venturi mask. Labs reviewed. Abnormal electrolytes addressed. Continue per consultants and pulmonary support. May 25: On Venturi mask. Lethargic. No labs drawn today. Will monitor renal parameters. Per orders. May 24: Remains extubated. Will start on diet with high alert for possible aspiration. Continue to monitor renal parameters. May 23: Continues to be extubated. On nonrebreathing mask. Labs reviewed. Renal parameters stable. Discussed with RN. Continue per current management. May 22: Now extubated on nonrebreathing mask. Labs reviewed. Renal parameters stable. Abnormal electrolytes addressed. Discussed with RN. May 21: Remains intubated. Labs reviewed. Abnormal electrolytes addressed. Discussed with RN. May 20: Remains intubated. Abnormal electrolyte noted on today's lab results and addressed. Continue per consultants. May 19: Patient remains intubated. Labs reviewed. Abnormal electrolytes addressed. Continue per current management. May 18: Patient seen in ICU. Remains intubated. Weaning is being tried. Discussed with RN. Labs reviewed. Abnormal electrolyte addressed. Continue per consultants. May 17: Labs reviewed. Remains intubated. Stable from renal standpoint of view. Continue weaning. Discussed with RN. May 16: Labs reviewed. Remains intubated. Remains full code. Stable from renal standpoint of view. Abnormal electrolytes addressed. May 15: Labs reviewed. Renal parameters stable. Discussed with RN. Patient remains intubated on ventilator and full code. Continue per consultants. May 14: Labs reviewed. Discussed with RN. Abnormal electrolyte addressed. Continue per current management. Patient seen in ICU. Discussed with RN. Today's labs pending. Patient remains on 6 mics of dopamine. Pulmonary support Monitor intake and output Monitor electrolytes Continue per consultants Per orders Subjective ROS Limited/Unobtainable: No Constitutional: Reports: malaise Objective Objective Last 24 Hour Vital Signs Date Time Temp Pulse Resp B/P (MAP) Pulse Ox O2 Delivery O2 Flow Rate FiO2 06/11/20 12:00 97.5 57 20 107/70 (82) 95 06/11/20 12:00 57 06/11/20 09:00 Room Air 06/11/20 08:00 97.7 66 20 121/92 (102) 96 06/11/20 08:00 57 06/11/20 07:00 96 Room Air 21 06/11/20 04:00 61 06/11/20 00:00 59 18 121/39 (66) 06/11/20 00:00 55 06/10/20 21:00 Room Air 06/10/20 20:20 96 Room Air 21 06/10/20 20:00 59 18 157/43 (81) 06/10/20 20:00 90 06/10/20 16:00 60 Intake and Output 06/10/20 06/11/20 19:00 07:00 # Voids 3 Laboratory Tests 06/11/20 10:05: White Blood Count 7.0, Red Blood Count 2.96L, Hemoglobin 9.5L, Hematocrit 26.9L, Mean Corpuscular Volume 91, Mean Corpuscular Hemoglobin 32.1H, Mean Corpuscular Hemoglobin Concent 35.3, Red Cell Distribution Width 17.8H, Platelet Count 277, Mean Platelet Volume 6.4L, Neutrophils (%) (Auto) 57.2, Lymphocytes (%) (Auto) 30.9, Monocytes (%) (Auto) 8.2, Eosinophils (%) (Auto) 2.4, Basophils (%) (Auto) 1.3, Sodium Level 135L, Potassium Level 3.0L, Chloride Level 96L, Carbon Dioxide Level 33H, Anion Gap 6, Blood Urea Nitrogen 38H, Creatinine 1.3, Estimat Glomerular Filtration Rate 39.4, Glucose Level 115H, Calcium Level 9.1, Ph osphorus Level 2.9, Magnesium Level 2.3, Total Bilirubin 1.2H, Direct Bilirubin 0.4H, Aspartate Amino Transf (AST/SGOT) 20, Alanine Aminotransferase (ALT/SGPT) < 6L, Alkaline Phosphatase 48, Total Protein 7.8, Albumin 3.5, Globulin 4.3, Albumin/Globulin Ratio 0.8L Height (Feet): 5 Height (Inches): 3.00 Weight (Pounds): 183 General Appearance: no apparent distress Cardiovascular: normal rate Respiratory/Chest: decreased breath sounds Abdomen: distended Bryan Ochoa MD Jun 11, 2020 15:24
[2020-06-11 16:00] VITALS: BP 118/58
--- NOTE | 2020-06-11 17:27 | Surgery Progress Note ---
Surgery Progress Note Subjective Additional Comments right peripheral line in place planned for another picc Objective Last 24 Hour Vital Signs Date Time Temp Pulse Resp B/P (MAP) Pulse Ox O2 Delivery O2 Flow Rate FiO2 06/11/20 16:00 85 06/11/20 16:00 97.7 101 22 118/58 (78) 96 06/11/20 12:00 97.5 57 20 107/70 (82) 95 06/11/20 12:00 57 06/11/20 09:00 Room Air 06/11/20 08:00 97.7 66 20 121/92 (102) 96 06/11/20 08:00 57 06/11/20 07:00 96 Room Air 21 06/11/20 04:00 61 06/11/20 00:00 59 18 121/39 (66) 06/11/20 00:00 55 06/10/20 21:00 Room Air 06/10/20 20:20 96 Room Air 21 06/10/20 20:00 59 18 157/43 (81) 06/10/20 20:00 90 I&O Intake and Output 06/10/20 06/11/20 19:00 07:00 # Voids 3 Dressing: dry Wound: clean Cardiovascular: RSR Respiratory: clear Abdomen: soft, non-tender, present bowel sounds, non-distended Extremities: no edema, no tenderness, no cyanosis, pulses, other Laboratory Tests Test 06/11/20 10:05 White Blood Count 7.0 K/UL (4.8-10.8) Red Blood Count 2.96 M/UL (4.20-5.40) L Hemoglobin 9.5 G/DL (12.0-16.0) L Hematocrit 26.9 % (37.0-47.0) L Mean Corpuscular Volume 91 FL (80-99) Mean Corpuscular Hemoglobin 32.1 PG (27.0-31.0) H Mean Corpuscular Hemoglobin Concent 35.3 G/DL (32.0-36.0) Red Cell Distribution Width 17.8 % (11.6-14.8) H Platelet Count 277 K/UL (150-450) Mean Platelet Volume 6.4 FL (6.5-10.1) L Neutrophils (%) (Auto) 57.2 % (45.0-75.0) Lymphocytes (%) (Auto) 30.9 % (20.0-45.0) Monocytes (%) (Auto) 8.2 % (1.0-10.0) Eosinophils (%) (Auto) 2.4 % (0.0-3.0) Basophils (%) (Auto) 1.3 % (0.0-2.0) Sodium Level 135 MMOL/L (136-145) L Potassium Level 3.0 MMOL/L (3.5-5.1) L Chloride Level 96 MMOL/L (98-107) L Carbon Dioxide Level 33 MMOL/L (21-32) H Anion Gap 6 mmol/L (5-15) Blood Urea Nitrogen 38 mg/dL (7-18) H Creatinine 1.3 MG/DL (0.55-1.30) Estimat Glomerular Filtration Rate 39.4 mL/min (>60) Glucose Level 115 MG/DL (74-106) H Calcium Level 9.1 MG/DL (8.5-10.1) Phosphorus Level 2.9 MG/DL (2.5-4.9) Magnesium Level 2.3 MG/DL (1.8-2.4) Total Bilirubin 1.2 MG/DL (0.2-1.0) H Direct Bilirubin 0.4 MG/DL (0.0-0.3) H Aspartate Amino Transf (AST/SGOT) 20 U/L (15-37) Alanine Aminotransferase (ALT/SGPT) < 6 U/L (12-78) L Alkaline Phosphatase 48 U/L (46-116) Total Protein 7.8 G/DL (6.4-8.2) Albumin 3.5 G/DL (3.4-5.0) Globulin 4.3 g/dL Albumin/Globulin Ratio 0.8 (1.0-2.7) L Plan Problems: (1) Anemia (2) Hypercapnic respiratory failure Assessment & Plan: respiratory insufficiency requiring prolonged ventilatory support unable to wean vent safely after multiple attempts discussed with pcp. discussed with pulm discussed with patient guardian. patient unable to consent. no nok or poa. given critical care and condition not recommended to await court decision which during pandemic can take long time. medically necessary to proceed with trach in patients best interest. self extubated will monitor DAILY ESTIMATED NEEDS: Needs based on Critical care, 70kg abw 22-28 kcals/kg 2112-5070 total kcals 1.2-2 g protein/kg 84-140 g total protein 20-25 mL/kg 4053-4853 total fluid mLs NUTRITION DIAGNOSIS: Swallowing difficulty r/t respiratory status as evidenced by pt orally intubated, was pending trach placement, s/p self-extubation on 05/22, now on texture modified diet. CURRENT DIET:REGULAR, puree w/ NTL PO DIET RECOMMENDATIONS: Maintain liberalized REGULAR diet/ texture per TIPPLE SUPERVISOR ADDITIONAL RECOMMENDATIONS: 1) Calibrated bed scale wts 2) Rec bowel regimen -> now added 3) Monitor lytes, replete as needed 4) TIPPLE SUPERVISOR f/up regarding texture clarification 5) Monitor PO intake and tolerance Ensure Enlive TID w/ meals w/ 3rd Ensure as pm snack to prevent am hypoglycemia (3) COVID-19 Assessment & Plan: ++ improving repeat (4) COPD (chronic obstructive pulmonary disease) (5) Psychosis (6) Renal failure (ARF), acute on chronic (7) CHF exacerbation (8) Hypoxia (9) Hypocalcemia (10) Bradycardia (11) Dyspnea (12) Dyspnea (13) Respiratory distress (14) Hyperlipidemia (15) Hypothyroidism (16) Hypothyroidism (17) Obese (18) Psychosis (19) Respiratory failure (20) Pneumonia (21) Acute and chronic respiratory failure (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
[2020-06-11] MEDS ORDERED: Lidocaine 1% Plain 30 ml INJ PRN (18:24)
[2020-06-11] MEDS ORDERED: Heparin1,000 units/500ml Premix(Conc:2 units/ml) IV PRN (18:24)
--- NOTE | 2020-06-11 18:35 | General Progress Note ---
Subjective Allergies: Coded Allergies: LITHIUM (Verified Allergy, Unknown, 02/07/19) Subjective above noted comfortable sitting in chair no abd pain Objective Last 24 Hour Vital Signs Date Time Temp Pulse Resp B/P (MAP) Pulse Ox O2 Delivery O2 Flow Rate FiO2 06/11/20 16:00 85 06/11/20 16:00 97.7 101 22 118/58 (78) 96 06/11/20 12:00 97.5 57 20 107/70 (82) 95 06/11/20 12:00 57 06/11/20 09:00 Room Air 06/11/20 08:00 97.7 66 20 121/92 (102) 96 06/11/20 08:00 57 06/11/20 07:00 96 Room Air 21 06/11/20 04:00 61 06/11/20 00:00 59 18 121/39 (66) 06/11/20 00:00 55 06/10/20 21:00 Room Air 06/10/20 20:20 96 Room Air 21 06/10/20 20:00 59 18 157/43 (81) 06/10/20 20:00 90 Intake and Output 06/10/20 06/11/20 19:00 07:00 # Voids 3 Laboratory Tests 06/11/20 10:05: White Blood Count 7.0, Red Blood Count 2.96L, Hemoglobin 9.5L, Hematocrit 26.9L, Mean Corpuscular Volume 91, Mean Corpuscular Hemoglobin 32.1H, Mean Corpuscular Hemoglobin Concent 35.3, Red Cell Distribution Width 17.8H, Platelet Count 277, Mean Platelet Volume 6.4L, Neutrophils (%) (Auto) 57.2, Lymphocytes (%) (Auto) 30.9, Monocytes (%) (Auto) 8.2, Eosinophils (%) (Auto) 2.4, Basophils (%) (Auto) 1.3, Sodium Level 135L, Potassium Level 3.0L, Chloride Level 96L, Carbon Dioxide Level 33H, Anion Gap 6, Blood Urea Nitrogen 38H, Creatinine 1.3, Estimat Glomerular Filtration Rate 39.4, Glucose Level 115H, Calcium Level 9.1, Phosphorus Level 2.9, Magnesium Level 2.3, Total Bilirubin 1.2H, Direct Bilirubi n 0.4H, Aspartate Amino Transf (AST/SGOT) 20, Alanine Aminotransferase (ALT/SGPT) < 6L, Alkaline Phosphatase 48, Total Protein 7.8, Albumin 3.5, Globulin 4.3, Albumin/Globulin Ratio 0.8L Height (Feet): 5 Height (Inches): 3.00 Weight (Pounds): 183 Objective WDWN WW NCAT CTA RR abd soft no edema Assessment/Plan Status: progressing, unchanged, deteriorating Assessment/Plan: Assessment/Plan (1) Hypertension (2) Schizophrenia (3) Hyperlipidemia (4) Parkinson disease (5) Anemia (6) Obese (7) COVID (+) (8) Hypoxia (9) arrhythmia Recommendations PPI BID Follow H&H Transfuse to keep Hg>7.0 po as tolerated GI procedures at a later date, if needed bowel regimen possible pacemaker placement Aria Chicas MD Jun 11, 2020 18:35
[2020-06-11 20:00] VITALS: BP 121/56
[2020-06-11] MEDS ORDERED: Dyna-Hex 2% Top Sol 2oz TOPIC SCH (20:00)
[2020-06-11] MEDS: Miralax 17gm pkt ORAL SCH (21:00)
--- NOTE | 2020-06-11 22:00 | General Progress Note ---
Subjective ROS Limited/Unobtainable: Yes Allergies: Coded Allergies: LITHIUM (Verified Allergy, Unknown, 02/07/19) Objective Last 24 Hour Vital Signs Date Time Temp Pulse Resp B/P (MAP) Pulse Ox O2 Delivery O2 Flow Rate FiO2 06/11/20 19:18 96 Room Air 21 06/11/20 16:00 85 06/11/20 16:00 97.7 101 22 118/58 (78) 96 06/11/20 12:00 97.5 57 20 107/70 (82) 95 06/11/20 12:00 57 06/11/20 09:00 Room Air 06/11/20 08:00 97.7 66 20 121/92 (102) 96 06/11/20 08:00 57 06/11/20 07:00 96 Room Air 21 06/11/20 04:00 61 06/11/20 00:00 59 18 121/39 (66) 06/11/20 00:00 55 Intake and Output 06/10/20 06/11/20 19:00 07:00 # Voids 3 Laboratory Tests 06/11/20 10:05: White Blood Count 7.0, Red Blood Count 2.96L, Hemoglobin 9.5L, Hematocrit 26.9L, Mean Corpuscular Volume 91, Mean Corpuscular Hemoglobin 32.1H, Mean Corpuscular Hemoglobin Concent 35.3, Red Cell Distribution Width 17.8H, Platelet Count 277, Mean Platelet Volume 6.4L, Neutrophils (%) (Auto) 57.2, Lymphocytes (%) (Auto) 30.9, Monocytes (%) (Auto) 8.2, Eosinophils (%) (Auto) 2.4, Basophils (%) (Auto) 1.3, Sodium Level 135L, Potassium Level 3.0L, Chloride Level 96L, Carbon Dioxide Level 33H, Anion Gap 6, Blood Urea Nitrogen 38H, Creatinine 1.3, Estimat Glomerular Filtration Rate 39.4, Glucose Level 115H, Calcium Level 9.1, Phosphorus Level 2.9, Magnesium Level 2.3, Total Bilirubin 1.2H, Direct Bilirubin 0.4H, Aspartate Amino Transf (AST/SGOT) 20, Alanine Aminotransferase (ALT/SGPT) < 6L, Alkaline Phosphatase 48, Total Protein 7.8, Albumin 3.5, Globulin 4.3, Albumin/Globulin Ratio 0.8L Height (Feet): 5 Height (Inches): 3.00 Weight (Pounds): 183 Assessment/Plan Problem List: (1) Anemia ICD Codes: D64.9 - Anemia, unspecified SNOMED: 459096878 (2) Hypercapnic respiratory failure ICD Codes: J96.92 - Respiratory failure, unspecified with hypercapnia SNOMED: 677765680 (3) COVID-19 ICD Codes: U07.1 - COVID-19 SNOMED: 550002323 (4) COPD (chronic obstructive pulmonary disease) ICD Codes: J44.9 - Chronic obstructive pulmonary disease, unspecified SNOMED: 60572974 (5) Psychosis ICD Codes: F29 - Unspecified psychosis not due to a substance or known physiological condition SNOMED: 61000524 (6) Hypoxia ICD Codes: R09.02 - Hypoxemia SNOMED: 456160479 (7) Renal failure (ARF), acute on chronic ICD Codes: N17.9 - Acute kidney failure, unspecified; N18.9 - Chronic kidney disease, unspecified SNOMED: 417960285 (8) CHF exacerbation ICD Codes: I50.9 - Heart failure, unspecified SNOMED: 158499866, [id number] Status: progressing, unchanged, deteriorating Assessment/Plan: pacer per dr pichardo weak dementia psychosis refuse meds sepsis copd exac chf exac Dani Perera MD Jun 11, 2020 22:00
[2020-06-12] VITALS: BP 109/38
--- NOTE | 2020-06-12 06:22 | Hematology/Onc Progress Note ---
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 ( combination of moderate aortic regurgitation and severe mitral regurgitation) --> diuresis as per cards --> lasix last time # Severe ascending aortic dilatation --> per Dr Keke campbell --> meds reviewed # Hypertension # Parkinson disease # Hyperlipidemia # Hypothyroidism # Dementia # Obesity # Schizophrenia --> as per [facility] --> restraints # Dvt ppx heparin sq Appreciate hr business partner consultant care and alexei Rn Subjective HEENT: Denies: no symptoms, eye pain, blurred vision, tearing, double vision, ear pain, ear discharge, nose pain, nose congestion, throat pain, throat swelling, mouth pain, mouth swelling, other Cardiovascular: Denies: no symptoms, chest pain, edema, irregular heart rate, lightheadedness, palpitations, syncope, other Respiratory: Denies: no symptoms, cough, shortness of breath, SOB with excertion, SOB at rest, sputum, wheezing, other Gastrointestinal/Abdominal: Denies: no symptoms, abdomen distended, abdominal pain, black stools, tarry stools, blood in stool, constipated, diarrhea, difficulty swallowing, nausea, poor appetite, poor fluid intake, rectal bleeding, vomiting, other Genitourinary: Denies: no symptoms, burning, discharge, frequency, flank pain, hematuria, incontinence, pain, urgency, other Neurologic/Psychiatric: Denies: no symptoms, anxiety, depressed, emotional problems, headache, numbness, paresthesia, pre-existing deficit, seizure, tin gling, tremors, weakness, other Endocrine: Denies: no symptoms, excessive sweating, flushing, intolerance to cold, intolerance to heat, increased hunger, increased thirst, increased urine, unexplained weight gain, unexplained weight loss, other Hematologic/Lymphatic: Denies: no symptoms, anemia, easy bleeding, easy bruising, adenopathy, other Allergies: Coded Allergies: LITHIUM (Verified Allergy, Unknown, 02/07/19) Subjective 06/01 nonrebreather, 15L, some mild pain in back, chest, no night sweats 06/02 remains on nonrebreather, labs are noted, no bleeding or night sweats 06/03 labs reviewed, meds noted, nonrebreather, c02 was elevated, to inform pulm 06/04 labs reviewed, meds noted, on NR, no night sweats, meds noted 06/05 is on 15lnc venturi mask, is covid iso, labs noted 06/06 labs reviewed, on venturi mask, on b/l soft wrists, meds noted 06/08 labs reviewed, on nc, no bleeding, with picc line, cbc ordered 06/09 labs reviewed, confused, on 3l nc, no night sweats, meds reviewed 06/10 is off restraints, left picc has been removed, no new changes 06/11 remains confused, is to have picc placed, per public guardian 06/12 wrist restraints, very agitated overnight, noncompliant, labs reviewed Objective Objective Current Medications Medications (Trade) Dose Ordered Sig/Angie Route PRN Reason Start Time Stop Time Status Last Admin Dose Admin Acetaminophen (Tylenol) 650 mg Q6H PRN NG Fever >100.5 05/14/20 21:00 06/13/20 20:59 05/14/20 21:10 Acetaminophen (Tylenol) 650 mg Q6H PRN NG Mild Pain (Pain Scale 1-3) 05/14/20 21:00 06/13/20 20:59 05/17/20 11:06 Chlorhexidine Gluconate (Ruba-Hex 2%) 1 applic DAILY@1999 TOPIC 06/12/20 20:00 09/10/20 19:59 Clonidine HCl (Catapres Tab) 0.1 mg Q4H PRN ORAL sbp>170 05/11/20 17:15 08/09/20 17:14 Docusate Sodium (Colace) 100 mg TWICE A DAY ORAL 06/05/20 09:00 07/05/20 08:59 06/11/20 14:21 Furosemide (Lasix) 40 mg DAILY ORAL 06/09/20 09:00 07/09/20 08:59 06/11/20 11:22 Haloperidol Lactate (Haldol) 5 mg Q6H PRN IM Agitation 05/13/20 20:45 06/27/20 20:44 05/28/20 02:40 Heparin Sodium (Porcine) (Heparin 5000 units/ml) 5,000 units EVERY 12 HOURS SUBQ 05/25/20 21:00 07/09/20 20:59 06/10/20 08:51 Heparin Sodium/ Sodium Chloride (Heparin 1000 units/500ml Premix) 1,000 unit ONCE PRN IV PICC 06/11/20 18:24 06/12/20 23:59 Lactulose (Cephulac) 20 gm THREE TIMES A DAY ORAL 06/08/20 18:00 07/08/20 17:59 06/11/20 11:20 Lansoprazole (Prevacid) 30 mg BID ORAL 06/05/20 18:00 07/05/20 17:59 06/11/20 18:11 Levothyroxine Sodium (Synthroid) 50 mcg DAILY@0630 ORAL 05/14/20 06:30 06/13/20 06:29 06/06/20 06:22 Lidocaine HCl (Xylocaine 1% 30ml) 30 ml ONCE PRN INJ picc 06/11/20 18:24 06/12/20 23:59 Polyethylene Glycol (Miralax) 17 gm BEDTIME ORAL 05/25/20 21:00 06/24/20 20:59 06/09/20 21:28 Quetiapine Fumarate (SEROqueL) 50 mg Q12HR ORAL 06/09/20 21:00 07/24/20 20:59 06/11/20 11:20 Last 24 Hour Vital Signs Date Time Temp Pulse Resp B/P (MAP) Pulse Ox O2 Delivery O2 Flow Rate FiO2 06/12/20 04:00 59 06/12/20 00:00 67 06/12/20 00:00 56 20 109/38 (61) 06/11/20 21:00 Room Air 06/11/20 20:00 64 06/11/20 20:00 57 20 121/56 (77) 06/11/20 19:18 96 Room Air 21 06/11/20 16:00 85 06/11/20 16:00 97.7 101 22 118/58 (78) 96 06/11/20 12:00 97.5 57 20 107/70 (82) 95 06/11/20 12:00 57 06/11/20 09:00 Room Air 06/11/20 08:00 97.7 66 20 121/92 (102) 96 06/11/20 08:00 57 06/11/20 07:00 96 Room Air 21 06/11/20 04:00 61 06/11/20 00:00 59 18 121/39 (66) 06/11/20 00:00 55 06/10/20 21:00 Room Air 06/10/20 20:20 96 Room Air 21 06/10/20 20:00 59 18 157/43 (81) 06/10/20 20:00 90 06/10/20 16:00 60 06/10/20 12:00 98.0 60 18 114/39 (64) 96 06/10/20 12:00 58 06/10/20 09:00 Room Air 06/10/20 08:15 95 Room Air 21 06/10/20 08:00 98.1 60 17 108/32 (57) 96 06/10/20 08:00 54 Intake and Output 06/11/20 06/12/20 19:00 07:00 Intake Total 180 ml Balance 180 ml Intake Oral 180 ml # Voids 3 # Bowel Movements 2 Labs Test 06/09/20 06:45 06/10/20 08:00 06/11/20 10:05 White Blood Count 7.5 K/UL (4.8-10.8) 5.4 K/UL (4.8-10.8) 7.0 K/UL (4.8-10.8) Red Blood Count 2.89 M/UL (4.20-5.40) 2.75 M/UL (4.20-5.40) 2.96 M/UL (4.20-5.40) Hemoglobin 9.2 G/DL (12.0-16.0) 9.0 G/DL (12.0-16.0) 9.5 G/DL (12.0-16.0) Hematocrit 27.5 % (37.0-47.0) 25.1 % (37.0-47.0) 26.9 % (37.0-47.0) Mean Corpuscular Volume 95 FL (80-99) 91 FL (80-99) 91 FL (80-99) Mean Corpuscular Hemoglobin 32.0 PG (27.0-31.0) 32.6 PG (27.0-31.0) 32.1 PG (27.0-31.0) Mean Corpuscular Hemoglobin Concent 33.6 G/DL (32.0-36.0) 35.8 G/DL (32.0-36.0) 35.3 G/DL (32.0-36.0) Red Cell Distribution Width 17.0 % (11.6-14.8) 16.5 % (11.6-14.8) 17.8 % (11.6-14.8) Platelet Count 251 K/UL (150-450) 246 K/UL (150-450) 277 K/UL (150-450) Mean Platelet Volume 7.1 FL (6.5-10.1) 6.9 FL (6.5-10.1) 6.4 FL (6.5-10.1) Neutrophils (%) (Auto) 68.5 % (45.0-75.0) 58.6 % (45.0-75.0) 57.2 % (45.0-75.0) Lymphocytes (%) (Auto) 21.9 % (20.0-45.0) 30.7 % (20.0-45.0) 30.9 % (20.0-45.0) Monocytes (%) (Auto) 6.6 % (1.0-10.0) 7.6 % (1.0-10.0) 8.2 % (1.0-10.0) Eosinophils (%) (Auto) 2.1 % (0.0-3.0) 2.1 % (0.0-3.0) 2.4 % (0.0-3.0) Basophils (%) (Auto) 0.9 % (0.0-2.0) 1.0 % (0.0-2.0) 1.3 % (0.0-2.0) Sodium Level 138 MMOL/L (136-145) 135 MMOL/L (136-145) Potassium Level 3.5 MMOL/L (3.5-5.1) 3.0 MMOL/L (3.5-5.1) Chloride Level 99 MMOL/L (98-107) 96 MMOL/L (98-107) Carbon Dioxide Level 35 MMOL/L (21-32) 33 MMOL/L (21-32) Anion Gap 4 mmol/L (5-15) 6 mmol/L (5-15) Blood Urea Nitrogen 48 mg/dL (7-18) 38 mg/dL (7-18) Creatinine 1.3 MG/DL (0.55-1.30) 1.3 MG/DL (0.55-1.30) Estimat Glomerular Filtration Rate 39.4 mL/min (>60) 39.4 mL/min (>60) Glucose Level 86 MG/DL (74-106) 115 MG/DL (74-106) Calcium Level 9.3 MG/DL (8.5-10.1) 9.1 MG/DL (8.5-10.1) Total Bilirubin 1.3 MG/DL (0.2-1.0) 1.2 MG/DL (0.2-1.0) Direct Bilirubin 0.3 MG/DL (0.0-0.3) 0.4 MG/DL (0.0-0.3) Aspartate Amino Transf (AST/SGOT) 19 U/L (15-37) 20 U/L (15-37) Alanine Aminotransferase (ALT/SGPT) 13 U/L (12-78) < 6 U/L (12-78) Alkaline Phosphatase 48 U/L (46-116) 48 U/L (46-116) Total Protein 7.6 G/DL (6.4-8.2) 7.8 G/DL (6.4-8.2) Albumin 3.4 G/DL (3.4-5.0) 3.5 G/DL (3.4-5.0) Globulin 4.2 g/dL 4.3 g/dL Albumin/Globulin Ratio 0.8 (1.0-2.7) 0.8 (1.0-2.7) Free Thyroxine < 0.40 NG/DL (0.76-1.46) Phosphorus Level 2.9 MG/DL (2.5-4.9) Magnesium Level 2.3 MG/DL (1.8-2.4) Height (Feet): 5 Height (Inches): 3.00 Weight (Pounds): 183 Objective Physical Exam: Vitals: reviewed General: NAD HEENT: nc, at Neck: supple Chest: decreased breath sounds bilaterally, crackles+++ 15L NRM Cardiovascular: RRR, no s3, s4 Abdomen: soft, nontender, nd Extremities: 1-2 + edema Neuro: nonverbal Frank Escobar MD Jun 12, 2020 06:22
[2020-06-12] MEDS: Heparin 5000 units/ml inj SUBQ SCH ×2 (07:54→21:00)
[2020-06-12 08:00] VITALS: BP 98/61
[2020-06-12] MEDS ORDERED: Acetaminophen 650mg/20.3ml NG PRN ×2 (08:00)
[2020-06-12] MEDS: Docusate 100mg/10ml Liq ORAL SCH ×2 (08:37→17:38)
[2020-06-12] MEDS: Lactulose 20gm/30ml UDC ORAL SCH ×3 (08:37→17:38)
[2020-06-12] MEDS: Furosemide 40mg tab ORAL SCH ×2 (08:38→09:25)
[2020-06-12 10:12] LABS: BASOPHILS % (AUTO) 1.4 % (0.0-2.0); EOSINOPHILS % (AUTO) 1.9 % (0.0-3.0); HEMATOCRIT 27.6 % (37.0-47.0); HEMOGLOBIN 9.4 G/DL (12.0-16.0); LYMPHOCYTES % (AUTO) 28.9 % (20.0-45.0); MEAN CORPUSCULAR VOLUME 98 FL (80-99); MONOCYTES % (AUTO) 8.1 % (1.0-10.0); NEUTROPHILS % (AUTO) 59.7 % (45.0-75.0); PLATELET COUNT 303 K/UL (150-450); RED BLOOD COUNT 2.82 M/UL (4.20-5.40); RED CELL DISTRIBUTION WIDTH 17.2 % (11.6-14.8); WHITE BLOOD COUNT 6.6 K/UL (4.8-10.8)
[2020-06-12 10:28] LABS: ALBUMIN 3.6 G/DL (3.4-5.0); ALBUMIN/GLOBULIN RATIO 0.8 (1.0-2.7); BILIRUBIN,TOTAL 1.1 MG/DL (0.2-1.0); CALCIUM 9.1 MG/DL (8.5-10.1); CREATININE 1.4 MG/DL (0.55-1.30); PHOSPHORUS 3.2 MG/DL (2.5-4.9); POTASSIUM 3.8 MMOL/L (3.5-5.1)
[2020-06-12 10:42] LABS: BILIRUBIN,DIRECT 0.4 MG/DL (0.0-0.3)
--- NOTE | 2020-06-12 12:08 | Nephrology Progress Note ---
Assessment/Plan Problem List: (1) Renal failure (ARF), acute on chronic (2) Hypercapnic respiratory failure (3) CHF exacerbation (4) Anemia Assessment Azotemia/renal failure Acute respiratory failure most likely secondary to CHF, on mechanical ventilation History of COPD Hypertension Hyperlipemia Schizophrenia/psychosis Plan June 12: Lab reviewed. Renal parameters are stable. Continue per consultants. June 11: Labs reviewed. Low potassium noted and addressed. Continue per consultants. Continue to monitor renal parameters. June 10: No CHEM panel drawn today. Check lab tomorrow. Continue per consultants. On room air oxygen June 09: Labs reviewed. Renal parameters stable. Continue per current treatment plan. June 08: Labs reviewed. Low potassium addressed. Continue per consultants. June 07: Stable renal parameters. Continue per consultants. Overall stable. June 06: Status quo. Remains on Venturi mask. Labs reviewed. Renal parameters stable. Continue per consultants. June 05: Lethargic. On Venturi mask. Labs reviewed. Returning bicarb. Continue to monitor ABG and electrolytes. Low potassium addressed. June 04: Remains on Venturi mask. No can panel done today. ABG results reviewed. Continue per pulmonary. June 03: Poor respiratory status. ABG noted. Patient hypoxic. Renal parameters somewhat stable. Continue per pulmonary. June 02: Labs reviewed. Low phosphorus replaced. Patient has periodic severe bradycardia. Continue per cardiology. June 01: Labs reviewed. Low magnesium replaced. Renal parameters stable. Hemoglobin level reasonable. Continue per consultants. May 31: Labs reviewed. Abnormal electrolytes at rest. Hemoglobin higher. Discussed with DARREL Cooper. Continue per consultants. May 30: Lab reviewed. Potassium and phosphorus replaced. Hemoglobin higher after transfusion. Continue per consultants. May 29: Lab reviewed. Patient anemic. Electrolyte abnormalities reviewed and addressed. Continue per consultants. Remains stable from renal standpoint of view. May 28: Patient was not transfused despite of my order since yesterday. Will defer transfusion to PMD/comic illustrator. Patient remains stable from renal standpoint of view. Continue per consultants. Discussed with Marlene nursing charge in [place]. May 27: Remains on Venturi mask. Labs reviewed. Abnormal electrolytes addressed. Hemoglobin low. Will transfuse 1 unit of packed RBCs today May 26: On Venturi mask. Labs reviewed. Abnormal electrolytes addressed. Continue per consultants and pulmonary support. May 25: On Venturi mask. Lethargic. No labs drawn today. Will monitor renal parameters. Per orders. May 24: Remains extubated. Will start on diet with high alert for possible aspiration. Continue to monitor renal parameters. May 23: Continues to be extubated. On nonrebreathing mask. Labs reviewed. Renal parameters stable. Discussed with RN. Continue per current management. May 22: Now extubated on nonrebreathing mask. Labs reviewed. Renal parameters stable. Abnormal electrolytes addressed. Discussed with RN. May 21: Remains intubated. Labs reviewed. Abnormal electrolytes addressed. Discussed with RN. May 20: Remains intubated. Abnormal electrolyte noted on today's lab results and addressed. Continue per consultants. May 19: Patient remains intubated. Labs reviewed. Abnormal electrolytes addressed. Continue per current management. May 18: Patient seen in ICU. Remains intubated. Weaning is being tried. Discussed with RN. Labs reviewed. Abnormal electrolyte addressed. Continue per consultants. May 17: Labs reviewed. Remains intubated. Stable from renal standpoint of view. Continue weaning. Discussed with RN. May 16: Labs reviewed. Remains intubated. Remains full code. Stable from renal standpoint of view. Abnormal electrolytes addressed. May 15: Labs reviewed. Renal parameters stable. Discussed with RN. Patient remains intubated on ventilator and full code. Continue per consultants. May 14: Labs reviewed. Discussed with RN. Abnormal electrolyte addressed. Continue per current management. Patient seen in ICU. Discussed with RN. Today's labs pending. Patient remains on 6 mics of dopamine. Pulmonary support Monitor intake and output Monitor electrolytes Continue per consultants Per orders Subjective ROS Limited/Unobtainable: No Constitutional: Reports: malaise Objective Objective Last 24 Hour Vital Signs Date Time Temp Pulse Resp B/P (MAP) Pulse Ox O2 Delivery O2 Flow Rate FiO2 06/12/20 09:00 Room Air 06/12/20 08:00 98.2 80 18 98/61 (73) 96 06/12/20 08:00 63 06/12/20 04:00 59 06/12/20 00:00 67 06/12/20 00:00 56 20 109/38 (61) 06/11/20 21:00 Room Air 06/11/20 20:00 64 06/11/20 20:00 57 20 121/56 (77) 06/11/20 19:18 96 Room Air 21 06/11/20 16:00 85 06/11/20 16:00 97.7 101 22 118/58 (78) 96 Intake and Output 06/11/20 06/12/20 19:00 07:00 Intake Total 180 ml Balance 180 ml Intake Oral 180 ml # Voids 3 # Bowel Movements 2 Laboratory Tests 06/12/20 09:50: White Blood Count 6.6, Red Blood Count 2.82L, Hemoglobin 9.4L, Hematocrit 27.6L, Mean Corpuscular Volume 98, Mean Corpuscular Hemoglobin 33.4H, Mean Corpuscular Hemoglobin Concent 34.2, Red Cell Distribution Width 17.2H, Platelet Count 303, Mean Platelet Volume 6.5, Neutrophils (%) (Auto) 59.7, Lymphocytes (%) (Auto) 28.9, Monocytes (%) (Auto) 8.1, Eosinophils (%) (Auto) 1.9, Basophils (%) (Auto) 1.4, Sodium Level 133L, Potassium Level 3.8, Chloride Level 95L, Carbon Dioxide Level 33H, Anion Gap 5, Blood Urea Nitrogen 41H, Creatinine 1.4H, Estimat Glomerular Filtration Rate 36.2, Glucose Level 149H, Calcium Level 9.1, Phosphorus Level 3.2, Magnesium Level 2.2, Total Bilirubin 1.1H, Direct Bilirubin 0.4H, Aspartate Amino Transf (AST/SGOT) 20, Alanine Aminotransferase (ALT/SGPT) 11L, Alkaline Phosphatase 50, Total Protein 8.0, Albumin 3.6, Globulin 4.4, Albumin/Globulin Ratio 0.8L Height (Feet): 5 Height (Inches): 3.00 Weight (Pounds): 183 General Appearance: no apparent distress Cardiovascular: normal rate, bradycardia Respiratory/Chest: decreased breath sounds Abdomen: soft Bryan Ochoa MD Jun 12, 2020 12:08
--- NOTE | 2020-06-12 13:52 | Surgery Progress Note ---
Surgery Progress Note Subjective Symptoms: improved, tolerating diet, passing flatus, BM Objective Last 24 Hour Vital Signs Date Time Temp Pulse Resp B/P (MAP) Pulse Ox O2 Delivery O2 Flow Rate FiO2 06/12/20 12:00 53 06/12/20 09:00 Room Air 06/12/20 08:00 98.2 80 18 98/61 (73) 96 06/12/20 08:00 63 06/12/20 04:00 59 06/12/20 00:00 67 06/12/20 00:00 56 20 109/38 (61) 06/11/20 21:00 Room Air 06/11/20 20:00 64 06/11/20 20:00 57 20 121/56 (77) 06/11/20 19:18 96 Room Air 21 06/11/20 16:00 85 06/11/20 16:00 97.7 101 22 118/58 (78) 96 I&O Intake and Output 06/11/20 06/12/20 19:00 07:00 Intake Total 180 ml Balance 180 ml Intake Oral 180 ml # Voids 3 # Bowel Movements 2 Dressing: saturated Cardiovascular: RSR Respiratory: decreased breath sounds Abdomen: soft, non-tender, present bowel sounds Extremities: no tenderness, no cyanosis Laboratory Tests Test 06/12/20 09:50 White Blood Count 6.6 K/UL (4.8-10.8) Red Blood Count 2.82 M/UL (4.20-5.40) L Hemoglobin 9.4 G/DL (12.0-16.0) L Hematocrit 27.6 % (37.0-47.0) L Mean Corpuscular Volume 98 FL (80-99) Mean Corpuscular Hemoglobin 33.4 PG (27.0-31.0) H Mean Corpuscular Hemoglobin Concent 34.2 G/DL (32.0-36.0) Red Cell Distribution Width 17.2 % (11.6-14.8) H Platelet Count 303 K/UL (150-450) Mean Platelet Volume 6.5 FL (6.5-10.1) Neutrophils (%) (Auto) 59.7 % (45.0-75.0) Lymphocytes (%) (Auto) 28.9 % (20.0-45.0) Monocytes (%) (Auto) 8.1 % (1.0-10.0) Eosinophils (%) (Auto) 1.9 % (0.0-3.0) Basophils (%) (Auto) 1.4 % (0.0-2.0) Sodium Level 133 MMOL/L (136-145) L Potassium Level 3.8 MMOL/L (3.5-5.1) Chloride Level 95 MMOL/L (98-107) L Carbon Dioxide Level 33 MMOL/L (21-32) H Anion Gap 5 mmol/L (5-15) Blood Urea Nitrogen 41 mg/dL (7-18) H Creatinine 1.4 MG/DL (0.55-1.30) H Estimat Glomerular Filtration Rate 36.2 mL/min (>60) Glucose Level 149 MG/DL (74-106) H Calcium Level 9.1 MG/DL (8.5-10.1) Phosphorus Level 3.2 MG/DL (2.5-4.9) Magnesium Level 2.2 MG/DL (1.8-2.4) Total Bilirubin 1.1 MG/DL (0.2-1.0) H Direct Bilirubin 0.4 MG/DL (0.0-0.3) H Aspartate Amino Transf (AST/SGOT) 20 U/L (15-37) Alanine Aminotransferase (ALT/SGPT) 11 U/L (12-78) L Alkaline Phosphatase 50 U/L (46-116) Total Protein 8.0 G/DL (6.4-8.2) Albumin 3.6 G/DL (3.4-5.0) Globulin 4.4 g/dL Albumin/Globulin Ratio 0.8 (1.0-2.7) L Plan Problems: (1) Anemia (2) Hypercapnic respiratory failure Assessment & Plan: respiratory insufficiency requiring prolonged ventilatory support unable to wean vent safely after multiple attempts discussed with pcp. discussed with pulm discussed with patient guardian. patient unable to consent. no nok or poa. given critical care and condition not recommended to await court decision which during pandemic can take long time. medically necessary to proceed with trach in patients best interest. self extubated will monitor DAILY ESTIMATED NEEDS: Needs based on Critical care, 70kg abw 22-28 kcals/kg 3482-7915 total kcals 1.2-2 g protein/kg 84-140 g total protein 20-25 mL/kg 4748-1762 total fluid mLs NUTRITION DIAGNOSIS: Swallowing difficulty r/t respiratory status as evidenced by pt orally intubated, was pending trach placement, s/p self-extubation on 05/22, now on texture modified diet. CURRENT DIET:REGULAR, puree w/ NTL PO DIET RECOMMENDATIONS: Maintain liberalized REGULAR diet/ texture per CREDIT ADMINISTRATOR ADDITIONAL RECOMMENDATIONS: 1) Calibrated bed scale wts 2) Rec bowel regimen -> now added 3) Monitor lytes, replete as needed 4) CREDIT ADMINISTRATOR f/up regarding texture clarification 5) Monitor PO intake and tolerance Ensure Enlive TID w/ meals w/ 3rd Ensure as pm snack to prevent am hypoglycemia (3) COVID-19 Assessment & Plan: ++ improving repeat (4) COPD (chronic obstructive pulmonary disease) (5) Psychosis (6) Renal failure (ARF), acute on chronic (7) CHF exacerbation (8) Hypoxia (9) Hypocalcemia (10) Bradycardia (11) Dyspnea (12) Dyspnea (13) Respiratory distress (14) Hyperlipidemia (15) Hypothyroidism (16) Hypothyroidism (17) Obese (18) Psychosis (19) Respiratory failure (20) Pneumonia (21) Acute and chronic respiratory failure (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
[2020-06-12] MEDS ORDERED: LORazepam Inj 2mg/ml 1ml IM SCH (14:07)
--- NOTE | 2020-06-12 15:07 | Pulmonology Progress Note ---
Subjective ROS Limited/Unobtainable: No Interval Events: none major reported per nursing Constitutional: Denies: fever HEENT: Repors: no symptoms Respiratory: Reports: no symptoms Cardiovascular: Reports: no symptoms Gastrointestinal/Abdominal: Reports: no symptoms Genitourinary: Reports: no symptoms Allergies: Coded Allergies: LITHIUM (Verified Allergy, Unknown, 02/07/19) Objective Last 24 Hour Vital Signs Date Time Temp Pulse Resp B/P (MAP) Pulse Ox O2 Delivery O2 Flow Rate FiO2 06/12/20 14:45 65 18 111/48 98 06/12/20 14:15 68 18 107/40 97 06/12/20 12:00 53 06/12/20 09:00 Room Air 06/12/20 08:00 98.2 80 18 98/61 (73) 96 06/12/20 08:00 63 06/12/20 04:00 59 06/12/20 00:00 67 06/12/20 00:00 56 20 109/38 (61) 06/11/20 21:00 Room Air 06/11/20 20:00 64 06/11/20 20:00 57 20 121/56 (77) 06/11/20 19:18 96 Room Air 21 06/11/20 16:00 85 06/11/20 16:00 97.7 101 22 118/58 (78) 96 Intake and Output 06/11/20 06/12/20 19:00 07:00 Intake Total 180 ml Balance 180 ml Intake Oral 180 ml # Voids 3 # Bowel Movements 2 General Appearance: no acute distress HEENT: normocephalic Respiratory: no respiratory distress, decreased breath sounds Cardiovascular: normal rate Abdomen: soft, non tender, other - obese Extremities: other - b/l 2+ pitting edema Neurologic: disoriented Laboratory Tests 06/12/20 09:50: White Blood Count 6.6, Red Blood Count 2.82L, Hemoglobin 9.4L, Hematocrit 27.6L, Mean Corpuscular Volume 98, Mean Corpuscular Hemoglobin 33.4H, Mean Corpuscular Hemoglobin Concent 34.2, Red Cell Distribution Width 17.2H, Platelet Count 303, Mean Platelet Volume 6.5, Neutrophils (%) (Auto) 59.7, Lymphocytes (%) (Auto) 28.9, Monocytes (%) (Auto) 8.1, Eosinophils (%) (Auto) 1.9, Basophils (%) (Auto) 1.4, Sodium Level 133L, Potassium Level 3.8, Chloride Level 95L, Carbon Dioxide Level 33H, Anion Gap 5, Blood Urea Nitrogen 41H, Creatinine 1.4H, Estimat G lomerular Filtration Rate 36.2, Glucose Level 149H, Calcium Level 9.1, Phosphorus Level 3.2, Magnesium Level 2.2, Total Bilirubin 1.1H, Direct Bilirubin 0.4H, Aspartate Amino Transf (AST/SGOT) 20, Alanine Aminotransferase (ALT/SGPT) 11L, Alkaline Phosphatase 50, Total Protein 8.0, Albumin 3.6, Globu catrachita 4.4, Albumin/Globulin Ratio 0.8L Current Medications Medications (Trade) Dose Ordered Sig/Angie Route PRN Reason Start Time Stop Time Status Last Admin Dose Admin Acetaminophen (Tylenol) 650 mg Q6H PRN NG Fever >100.5 06/12/20 08:00 07/12/20 07:59 Acetaminophen (Tylenol) 650 mg Q6H PRN NG Mild Pain (Pain Scale 1-3) 06/12/20 08:00 07/12/20 07:59 Chlorhexidine Gluconate (Ruba-Hex 2%) 1 applic DAILY@2000 TOPIC 06/12/20 20:00 09/10/20 19:59 Clonidine HCl (Catapres Tab) 0.1 mg Q4H PRN ORAL sbp>170 05/11/20 17:15 08/09/20 17:14 Docusate Sodium (Colace) 100 mg TWICE A DAY ORAL 06/05/20 09:00 07/05/20 08:59 06/12/20 08:37 Furosemide (Lasix) 40 mg DAILY ORAL 06/09/20 09:00 07/09/20 08:59 06/12/20 09:25 Haloperidol Lactate (Haldol) 5 mg Q6H PRN IM Agitation 05/13/20 20:45 06/27/20 20:44 05/28/20 02:40 Heparin Sodium (Porcine) (Heparin 5000 units/ml) 5,000 units EVERY 12 HOURS SUBQ 05/25/20 21:00 07/09/20 20:59 06/10/20 08:51 Heparin Sodium/ Sodium Chloride (Heparin 1000 units/500ml Premix) 1,000 unit ONCE PRN IV PICC 06/11/20 18:24 06/12/20 23:59 Lactulose (Cephulac) 20 gm THREE TIMES A DAY ORAL 06/08/20 18:00 07/08/20 17:59 06/12/20 08:37 Lansoprazole (Prevacid) 30 mg BID ORAL 06/05/20 18:00 07/05/20 17:59 06/12/20 08:38 Levothyroxine Sodium (Synthroid) 50 mcg DAILY@0630 ORAL 06/13/20 06:30 07/13/20 06:29 Lidocaine HCl (Xylocaine 1% 30ml) 30 ml ONCE PRN INJ picc 06/11/20 18:24 06/12/20 23:59 Lorazepam (Ativan 2mg/ml 1ml) 2 mg STAT IM 06/12/20 14:07 06/12/20 15:15 06/12/20 14:15 Polyethylene Glycol (Miralax) 17 gm BEDTIME ORAL 05/25/20 21:00 06/24/20 20:59 06/09/20 21:28 Quetiapine Fumarate (SEROqueL) 50 mg Q12HR ORAL 06/09/20 21:00 07/24/20 20:59 06/12/20 08:38 Assessment/Plan Assessment/Plan 1. Bilateral COVID-19 multilobar pneumonia. - s/p ETT - Afebrile - s/p Azithromycin, Ceftriaxone, dexamethasone - s/p remdesivir - CXR 05/31 Patchy bilateral airspace consolidations, consistent with multifocal infiltrate, similar in appearance to previous study from 05/30; Stable, small bilateral pleural effusions. - COVID-19 PCR 06/02 inconclusive result 2. Hx of COPD. 3. Schizophrenia/psychosis - On haloperidol per Dr. Hernandez; refusing all PO medications 4. Hypoxia. -Now on RA; saturating better - X-ray chest on 06/07 shows significantly improved bilateral pulmonary infiltrates - on Lasix PO - off Diamox - recommend continues diuresis with ongoing BUN/Cr monitoring 5. Anemia 6. SSS - plan for pacer noted; per cardio DVT ppx Sincere Myers MD Jun 12, 2020 15:07
[2020-06-12 16:00] VITALS: BP 107/55
--- NOTE | 2020-06-12 16:05 | Brief Operative Note ---
Immediate Post Operative Note Operative Note Pre-op Diagnosis: needs IV access Procedure: PICC Post-op Diagnosis: same as pre-op Surgeon: Peter Bar Anesthesia: local Specimen: none Complications: none Fluids: 0 Implant(s) used?: No Porfirio Bar MD Jun 12, 2020 16:05
--- NOTE | 2020-06-12 16:19 | General Progress Note ---
Subjective ROS Limited/Unobtainable: Yes Allergies: Coded Allergies: LITHIUM (Verified Allergy, Unknown, 02/07/19) Objective Last 24 Hour Vital Signs Date Time Temp Pulse Resp B/P (MAP) Pulse Ox O2 Delivery O2 Flow Rate FiO2 06/12/20 14:45 65 18 111/48 98 06/12/20 14:15 68 18 107/40 97 06/12/20 12:00 53 06/12/20 09:00 Room Air 06/12/20 08:00 98.2 80 18 98/61 (73) 96 06/12/20 08:00 63 06/12/20 04:00 59 06/12/20 00:00 67 06/12/20 00:00 56 20 109/38 (61) 06/11/20 21:00 Room Air 06/11/20 20:00 64 06/11/20 20:00 57 20 121/56 (77) 06/11/20 19:18 96 Room Air 21 Intake and Output 06/11/20 06/12/20 19:00 07:00 Intake Total 180 ml Balance 180 ml Intake Oral 180 ml # Voids 3 # Bowel Movements 2 Laboratory Tests 06/12/20 09:50: White Blood Count 6.6, Red Blood Count 2.82L, Hemoglobin 9.4L, Hematocrit 27.6L, Mean Corpuscular Volume 98, Mean Corpuscular Hemoglobin 33.4H, Mean Corpuscular Hemoglobin Concent 34.2, Red Cell Distribution Width 17.2H, Platelet Count 303, Mean Platelet Volume 6.5, Neutrophils (%) (Auto) 59.7, Lymphocytes (%) (Auto) 28.9, Monocytes (%) (Auto) 8.1, Eosinophils (%) (Auto) 1.9, Basophils (%) (Auto) 1.4, Sodium Level 133L, Potassium Level 3.8, Chloride Level 95L, Carbon Dioxide Level 33H, Anion Gap 5, Blood Urea Nitrogen 41H, Creatinine 1.4H, Estimat Glom erular Filtration Rate 36.2, Glucose Level 149H, Calcium Level 9.1, Phosphorus Level 3.2, Magnesium Level 2.2, Total Bilirubin 1.1H, Direct Bilirubin 0.4H, Aspartate Amino Transf (AST/SGOT) 20, Alanine Aminotransferase (ALT/SGPT) 11L, Alkaline Phosphatase 50, Total Protein 8.0, Albumin 3.6, Globulin 4.4, Albumin/Globulin Ratio 0.8L Height (Feet): 5 Height (Inches): 3.00 Weight (Pounds): 183 Assessment/Plan Problem List: (1) Anemia ICD Codes: D64.9 - Anemia, unspecified SNOMED: 946829119 (2) Hypercapnic respiratory failure ICD Codes: J96.92 - Respiratory failure, unspecified with hypercapnia SNOMED: 995210502 (3) COVID-19 ICD Codes: U07.1 - COVID-19 SNOMED: 743301750 (4) COPD (chronic obstructive pulmonary disease) ICD Codes: J44.9 - Chronic obstructive pulmonary disease, unspecified SNOMED: 42673489 (5) Psychosis ICD Codes: F29 - Unspecified psychosis not due to a substance or known physiological condition SNOMED: 22588034 (6) Hypoxia ICD Codes: R09.02 - Hypoxemia SNOMED: 635088023 (7) Renal failure (ARF), acute on chronic ICD Codes: N17.9 - Acute kidney failure, unspecified; N18.9 - Chronic kidney disease, unspecified SNOMED: 865633387 (8) CHF exacerbation ICD Codes: I50.9 - Heart failure, unspecified SNOMED: 002007013, [id number] Status: progressing, unchanged, deteriorating Assessment/Plan: pacer per dr pichardo weak psychosis no fever clearance for pacer per dr alcantara sepsis copd exac chf exac Dani Perera MD Jun 12, 2020 16:19
--- NOTE | 2020-06-12 16:46 | Diagnostic Imaging Report ---
Indications: Needs long-term IV access Technique: Ultrasound confirms patent compressible right basilic vein. Total sterile technique, including sterile probe cover and sterile gel, hat, mask, sterile gown, large sterile drape, and preparation with 2% chlorhexidine utilized. Local anesthesia with 1% lidocaine. Under real-time ultrasound guidance, puncture basilic vein using 21-gauge needle, documented and archived, passage 0.018 guidewire under direct fluoroscopy, which was used to determine appropriate catheter length, exchange for 4 Albanian peel-away sheath. 4 Alban[place] Bard dual-lumen power PICC cut to 47 cm. It was inserted through the peel-away sheath. Peel-away sheath and guidewire removed. Catheter fixed to the skin. Both catheter ports aspirated and flushed. Patient tolerated procedure well, without immediate complication. Digital radiograph documents satisfactory catheter tip position, at the cavoatrial junction. Total fluoroscopy time 64.7 seconds. Total dose area product [id number] Total number of images: 1 Impression: Successful placement of right arm PICC under sonographic and fluoroscopic guidance, as described above.
--- NOTE | 2020-06-12 18:58 | General Progress Note ---
Subjective Allergies: Coded Allergies: LITHIUM (Verified Allergy, Unknown, 02/07/19) Subjective above noted comfortable, resting no abd pain Objective Last 24 Hour Vital Signs Date Time Temp Pulse Resp B/P (MAP) Pulse Ox O2 Delivery O2 Flow Rate FiO2 06/12/20 16:00 58 06/12/20 16:00 97.6 67 18 107/55 (72) 97 06/12/20 14:45 65 18 111/48 98 06/12/20 14:15 68 18 107/40 97 06/12/20 12:00 53 06/12/20 09:00 Room Air 06/12/20 08:00 98.2 80 18 98/61 (73) 96 06/12/20 08:00 63 06/12/20 04:00 59 06/12/20 00:00 67 06/12/20 00:00 56 20 109/38 (61) 06/11/20 21:00 Room Air 06/11/20 20:00 64 06/11/20 20:00 57 20 121/56 (77) 06/11/20 19:18 96 Room Air 21 Intake and Output 06/11/20 06/12/20 19:00 07:00 Intake Total 180 ml Balance 180 ml Intake Oral 180 ml # Voids 3 # Bowel Movements 2 Laboratory Tests 06/12/20 09:50: White Blood Count 6.6, Red Blood Count 2.82L, Hemoglobin 9.4L, Hematocrit 27.6L, Mean Corpuscular Volume 98, Mean Corpuscular Hemoglobin 33.4H, Mean Corpuscular Hemoglobin Concent 34.2, Red Cell Distribution Width 17.2H, Platelet Count 303, Mean Platelet Volume 6.5, Neutrophils (%) (Auto) 59.7, Lymphocytes (%) (Auto) 28.9, Monocytes (%) (Auto) 8.1, Eosinophils (%) (Auto) 1.9, Basophils (%) (Auto) 1.4, Sodium Level 133L, Potassium Level 3.8, Chloride Level 95L, Carbon Dioxide Level 33H, Anion Gap 5, Blood Urea Nitrogen 41H, Creatinine 1.4H, Estimat Glomerular Filtration Rate 36.2, Glucose Level 149H, Calcium Level 9.1, Phosphorus Level 3.2, Magnesium Level 2.2, Total Bilirubin 1.1H, Direct Bilirubin 0.4H, Aspartate Amino Transf (AST/SGOT) 20, Alanine Aminotransferase (ALT/SGPT) 11L, Alkaline Phosphatase 50, Total Protein 8.0, Albumin 3.6, Globulin 4.4, Albumin/Globulin Ratio 0.8L Height (Feet): 5 Height (Inches): 3.00 Weight (Pounds): 183 Objective WDWN WW NCAT CTA RR abd soft no edema Assessment/Plan Status: progressing, unchanged, deteriorating Assessment/Plan: Assessment/Plan (1) Hypertension (2) Schizophrenia (3) Hyperlipidemia (4) Parkinson disease (5) Anemia (6) Obese (7) COVID (+) (8) Hypoxia (9) arrhythmia Recommendations PPI BID Follow H&H Transfuse to keep Hg>7.0 po as tolerated GI procedures at a later date, if needed bowel regimen possible pacemaker placement Aria Chicas MD Jun 12, 2020 18:57
--- NOTE | 2020-06-12 19:53 | Cardiac Electrophysiology PN ---
Assessment/Plan Assessment/Plan 1. Covid PNA and respiratory failure. S/P Remdesevir and Dexamethasone Self extubated on RA. Off Abx per ID. On Lasix [address] Myers Now off isolation 2. SSS with 8 pauses of more than 3 seconds including 9 and 10 second pauses off any QUEZADA or AVN blockers. Will need pacer consent from conservator/court and ID clearance 3. Hypotension. Off Dopamine. EF 55% 4. Schizophrenia and psychosis. 5. S/P MRSA & Klebsiella pneumonia YOSELYN RN and Dr Chan from ID Subjective Subjective Self extubated on 05/22/20 off Covid isolation S/P Left arm PICC line placement as has no iv access. Had multiple pauses of more than 3 seconds including a 4s and 7s and a 10 second pause at 1 AM on 05/31 Had pauses of 7, 8 and 6 seconds again 06/01/20 Had positive blood Cx and ID clearance and consent pending for pacer implant On RA Objective Last 24 Hour Vital Signs Date Time Temp Pulse Resp B/P (MAP) Pulse Ox O2 Delivery O2 Flow Rate FiO2 06/12/20 16:00 58 06/12/20 16:00 97.6 67 18 107/55 (72) 97 06/12/20 14:45 65 18 111/48 98 06/12/20 14:15 68 18 107/40 97 06/12/20 12:00 53 06/12/20 09:00 Room Air 06/12/20 08:00 98.2 80 18 98/61 (73) 96 06/12/20 08:00 63 06/12/20 04:00 59 06/12/20 00:00 67 06/12/20 00:00 56 20 109/38 (61) 06/11/20 21:00 Room Air 06/11/20 20:00 64 06/11/20 20:00 57 20 121/56 (77) Intake and Output 06/11/20 06/12/20 19:00 07:00 Intake Total 180 ml Balance 180 ml Intake Oral 180 ml # Voids 3 # Bowel Movements 2 Laboratory Tests Test 06/12/20 09:50 White Blood Count 6.6 K/UL (4.8-10.8) Red Blood Count 2.82 M/UL (4.20-5.40) L Hemoglobin 9.4 G/DL (12.0-16.0) L Hematocrit 27.6 % (37.0-47.0) L Mean Corpuscular Volume 98 FL (80-99) Mean Corpuscular Hemoglobin 33.4 PG (27.0-31.0) H Mean Corpuscular Hemoglobin Concent 34.2 G/DL (32.0-36.0) Red Cell Distribution Width 17.2 % (11.6-14.8) H Platelet Count 303 K/UL (150-450) Mean Platelet Volume 6.5 FL (6.5-10.1) Neutrophils (%) (Auto) 59.7 % (45.0-75.0) Lymphocytes (%) (Auto) 28.9 % (20.0-45.0) Monocytes (%) (Auto) 8.1 % (1.0-10.0) Eosinophils (%) (Auto) 1.9 % (0.0-3.0) Basophils (%) (Auto) 1.4 % (0.0-2.0) Sodium Level 133 MMOL/L (136-145) L Potassium Level 3.8 MMOL/L (3.5-5.1) Chloride Level 95 MMOL/L (98-107) L Carbon Dioxide Level 33 MMOL/L (21-32) H Anion Gap 5 mmol/L (5-15) Blood Urea Nitrogen 41 mg/dL (7-18) H Creatinine 1.4 MG/DL (0.55-1.30) H Estimat Glomerular Filtration Rate 36.2 mL/min (>60) Glucose Level 149 MG/DL (74-106) H Calcium Level 9.1 MG/DL (8.5-10.1) Phosphorus Level 3.2 MG/DL (2.5-4.9) Magnesium Level 2.2 MG/DL (1.8-2.4) Total Bilirubin 1.1 MG/DL (0.2-1.0) H Direct Bilirubin 0.4 MG/DL (0.0-0.3) H Aspartate Amino Transf (AST/SGOT) 20 U/L (15-37) Alanine Aminotransferase (ALT/SGPT) 11 U/L (12-78) L Alkaline Phosphatase 50 U/L (46-116) Total Protein 8.0 G/DL (6.4-8.2) Albumin 3.6 G/DL (3.4-5.0) Globulin 4.4 g/dL Albumin/Globulin Ratio 0.8 (1.0-2.7) L Objective HEAD AND NECK: Positive JVD. LUNGS: Decreased breath sounds. CARDIOVASCULAR: Regular S1 and S2 with no gallop. ABDOMEN: Obese. EXTREMITIES: Bilateral 2+ pitting edema. Cameron Davies MD Jun 12, 2020 19:53
[2020-06-12 20:00] VITALS: BP 114/55
[2020-06-12] MEDS: Dyna-Hex 2% Top Sol 2oz TOPIC SCH (20:00)
[2020-06-12] MEDS: Miralax 17gm pkt ORAL SCH (21:00)
--- NOTE | 2020-06-12 22:06 | Psychiatric Progress Note ---
Psychiatry Progress Note Psychiatry Progress Note Subjective the pt has waxing and waning o consciousness on restraints episodes agitation confused Medications Current Medications Medications (Trade) Dose Ordered Sig/Angie Route PRN Reason Start Time Stop Time Status Last Admin Dose Admin Acetaminophen (Tylenol) 650 mg Q6H PRN NG Fever >100.5 06/12/20 08:00 07/12/20 07:59 Acetaminophen (Tylenol) 650 mg Q6H PRN NG Mild Pain (Pain Scale 1-3) 06/12/20 08:00 07/12/20 07:59 Chlorhexidine Gluconate (Ruba-Hex 2%) 1 applic DAILY@2000 TOPIC 06/12/20 20:00 09/10/20 19:59 06/12/20 20:00 Clonidine HCl (Catapres Tab) 0.1 mg Q4H PRN ORAL sbp>170 05/11/20 17:15 08/09/20 17:14 Docusate Sodium (Colace) 100 mg TWICE A DAY ORAL 06/05/20 09:00 07/05/20 08:59 06/12/20 08:37 Furosemide (Lasix) 40 mg DAILY ORAL 06/09/20 09:00 07/09/20 08:59 06/12/20 09:25 Haloperidol Lactate (Haldol) 5 mg Q6H PRN IM Agitation 05/13/20 20:45 06/27/20 20:44 05/28/20 02:40 Heparin Sodium (Porcine) (Heparin 5000 units/ml) 5,000 units EVERY 12 HOURS SUBQ 05/25/20 21:00 07/09/20 20:59 06/12/20 21:00 Heparin Sodium/ Sodium Chloride (Heparin 1000 units/500ml Premix) 1,000 unit ONCE PRN IV PICC 06/11/20 18:24 06/12/20 23:59 Lactulose (Cephulac) 20 gm THREE TIMES A DAY ORAL 06/08/20 18:00 07/08/20 17:59 06/12/20 08:37 Lansoprazole (Prevacid) 30 mg BID ORAL 06/05/20 18:00 07/05/20 17:59 06/12/20 08:38 Levothyroxine Sodium (Synthroid) 50 mcg DAILY@0630 ORAL 06/13/20 06:30 07/13/20 06:29 Lidocaine HCl (Xylocaine 1% 30ml) 30 ml ONCE PRN INJ picc 06/11/20 18:24 06/12/20 23:59 Polyethylene Glycol (Miralax) 17 gm BEDTIME ORAL 05/25/20 21:00 06/24/20 20:59 06/12/20 21:00 Quetiapine Fumarate (SEROqueL) 50 mg Q12HR ORAL 06/09/20 21:00 07/24/20 20:59 06/12/20 08:38 Neurological/Psychiatric: Reports: anxiety, depressed, emotional problems; Denies: no symptoms, headache, numbness, paresthesia, pre-existing deficit, seizure, tingling, tremors, weakness, other Allergies: Coded Allergies: LITHIUM (Verified Allergy, Unknown, 02/07/19) Objective Data Height (Feet): 5 Height (Inches): 3.00 Weight (Pounds): 183 General Appearance: no apparent distress Additional Comments: waxing and waning consciousness. Disoriented. Mood is neutral to agitation. Affect is flat. Thought process, there is paucity of thought process. Thought content, no suicidal or homicidal ideation. Cognition is impaired. Insight and judgment is impaired. Assessment/Plan [place] I: [place] I Acute toxic encephalopathy. Schizophrenia. [place] II Deferred. [place] III COVID-19. [place] IV Low. [place] V 20 PLAN: 1. Discontinue the IV Haldol. 2. Start the patient on Haldol IM. 3. The patient benefits from bilateral soft restraints. 4. Provide the patient with reality orientation. 5. Discussed with the nurse. Status: progressing, unchanged, deteriorating Status Narrative [place] I Acute toxic encephalopathy. Schizophrenia. [place] II Deferred. [place] III COVID-19. [place] IV Low. [place] V 20 PLAN: 1. Discontinue the IV Haldol. 2. Start the patient on Haldol IM. 3. The patient benefits from bilateral soft restraints. 4. Provide the patient with reality orientation. 5. Discussed with the nurse. Assessment/Plan: [place] I Acute toxic encephalopathy. Schizophrenia. [place] II Deferred. [place] III COVID-19. [place] IV Low. [place] V 20 PLAN: 1. Discontinue the IV Haldol. 2. Start the patient on Haldol IM. 3. The patient benefits from bilateral soft restraints. 4. Provide the patient with reality orientation. 5. Discussed with the nurse. Kiana Hernandez MD Jun 12, 2020 22:06
[2020-06-13] VITALS: BP 160/41
[2020-06-13 04:00] VITALS: BP 141/43
--- NOTE | 2020-06-13 06:26 | Hematology/Onc Progress Note ---
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 ( combination of moderate aortic regurgitation and severe mitral regurgitation) --> diuresis as per cards --> lasix last time # Severe ascending aortic dilatation --> per Dr Keke campbell --> meds reviewed # Hypertension # Parkinson disease # Hyperlipidemia # Hypothyroidism # Dementia # Obesity # Schizophrenia --> as per [facility] --> restraints # Dvt ppx heparin sq Appreciate executive consultant care and alexei Rn Subjective HEENT: Denies: no symptoms, eye pain, blurred vision, tearing, double vision, ear pain, ear discharge, nose pain, nose congestion, throat pain, throat swelling, mouth pain, mouth swelling, other Cardiovascular: Denies: no symptoms, chest pain, edema, irregular heart rate, lightheadedness, palpitations, syncope, other Respiratory: Denies: no symptoms, cough, shortness of breath, SOB with excertion, SOB at rest, sputum, wheezing, other Gastrointestinal/Abdominal: Denies: no symptoms, abdomen distended, abdominal pain, black stools, tarry stools, blood in stool, constipated, diarrhea, difficulty swallowing, nausea, poor appetite, poor fluid intake, rectal bleeding, vomiting, other Genitourinary: Denies: no symptoms, burning, discharge, frequency, flank pain, hematuria, incontinence, pain, urgency, other Neurologic/Psychiatric: Denies: no symptoms, anxiety, depressed, emotional problems, headache, numbness, paresthesia, pre-existing deficit, seizure, tingling, tremors, weakness, other Endocrine: Denies: no symptoms, excessive sweating, flushing, intolerance to cold, intolerance to heat, increased hunger, increased thirst, increased urine, unexplained weight gain, unexplained weight loss, other Hematologic/Lymphatic: Denies: no symptoms, anemia, easy bleeding, easy bruising, adenopathy, other Allergies: Coded Allergies: LITHIUM (Verified Allergy, Unknown, 02/07/19) Subjective 06/01 nonrebreather, 15L, some mild pain in back, chest, no night sweats 06/02 remains on nonrebreather, labs are noted, no bleeding or night sweats 06/03 labs reviewed, meds noted, nonrebreather, c02 was elevated, to inform pulm 06/04 labs reviewed, meds noted, on NR, no night sweats, meds noted 06/05 is on 15lnc venturi mask, is covid iso, labs noted 06/06 labs reviewed, on venturi mask, on b/l soft wrists, meds noted 06/08 labs reviewed, on nc, no bleeding, with picc line, cbc ordered 06/09 labs reviewed, confused, on 3l nc, no night sweats, meds reviewed 06/10 is off restraints, left picc has been removed, no new changes 06/11 remains confused, is to have picc placed, per public guardian 06/12 wrist restraints, very agitated overnight, noncompliant, labs reviewed 06/13 labs noted, no bleedig, hgb remains low, cbc is pending Objective Objective Current Medications Medications (Trade) Dose Ordered Sig/Angie Route PRN Reason Start Time Stop Time Status Last Admin Dose Admin Acetaminophen (Tylenol) 650 mg Q6H PRN NG Fever >100.5 06/12/20 08:00 07/12/20 07:59 Acetaminophen (Tylenol) 650 mg Q6H PRN NG Mild Pain (Pain Scale 1-3) 06/12/20 08:00 07/12/20 07:59 Chlorhexidine Gluconate (Ruba-Hex 2%) 1 applic DAILY@1999 TOPIC 06/12/20 20:00 09/10/20 19:59 06/12/20 20:00 Clonidine HCl (Catapres Tab) 0.1 mg Q4H PRN ORAL sbp>170 05/11/20 17:15 08/09/20 17:14 Docusate Sodium (Colace) 100 mg TWICE A DAY ORAL 06/05/20 09:00 07/05/20 08:59 06/12/20 08:37 Furosemide (Lasix) 40 mg DAILY ORAL 06/09/20 09:00 07/09/20 08:59 06/12/20 09:25 Haloperidol Lactate (Haldol) 5 mg Q6H PRN IM Agitation 05/13/20 20:45 06/27/20 20:44 05/28/20 02:40 Heparin Sodium (Porcine) (Heparin 5000 units/ml) 5,000 units EVERY 12 HOURS SUBQ 05/25/20 21:00 07/09/20 20:59 06/12/20 21:00 Lactulose (Cephulac) 20 gm THREE TIMES A DAY ORAL 06/08/20 18:00 07/08/20 17:59 06/12/20 08:37 Lansoprazole (Prevacid) 30 mg BID ORAL 06/05/20 18:00 07/05/20 17:59 06/12/20 08:38 Levothyroxine Sodium (Synthroid) 50 mcg DAILY@0630 ORAL 06/13/20 06:30 07/13/20 06:29 Polyethylene Glycol (Miralax) 17 gm BEDTIME ORAL 05/25/20 21:00 06/24/20 20:59 06/12/20 21:00 Quetiapine Fumarate (SEROqueL) 50 mg Q12HR ORAL 06/09/20 21:00 07/24/20 20:59 06/12/20 21:00 Last 24 Hour Vital Signs Date Time Temp Pulse Resp B/P (MAP) Pulse Ox O2 Delivery O2 Flow Rate FiO2 06/13/20 04:00 96.8 64 16 141/43 (75) 92 06/13/20 04:00 64 06/13/20 00:00 97.5 63 18 160/41 (80) 96 06/13/20 00:00 65 06/12/20 21:00 Room Air 06/12/20 20:00 96.3 62 20 114/55 (74) 95 06/12/20 20:00 60 06/12/20 19:55 95 Nasal Cannula 3.0 32 06/12/20 16:00 58 06/12/20 16:00 97.6 67 18 107/55 (72) 97 06/12/20 14:45 65 18 111/48 98 06/12/20 14:15 68 18 107/40 97 06/12/20 12:00 53 06/12/20 09:00 Room Air 06/12/20 08:00 98.2 80 18 98/61 (73) 96 06/12/20 08:00 63 06/12/20 04:00 59 06/12/20 00:00 67 06/12/20 00:00 56 20 109/38 (61) 06/11/20 21:00 Room Air 06/11/20 20:00 64 06/11/20 20:00 57 20 121/56 (77) 06/11/20 19:18 96 Room Air 21 06/11/20 16:00 85 06/11/20 16:00 97.7 101 22 118/58 (78) 96 06/11/20 12:00 97.5 57 20 107/70 (82) 95 06/11/20 12:00 57 06/11/20 09:00 Room Air 06/11/20 08:00 97.7 66 20 121/92 (102) 96 06/11/20 08:00 57 06/11/20 07:00 96 Room Air 21 Intake and Output 06/12/20 06/13/20 19:00 07:00 Intake Total 650 ml 200 ml Output Total 800 ml Balance -150 ml 200 ml Intake Oral 650 ml 200 ml Output Urine Total 800 ml # Voids 3 Labs Test 06/10/20 08:00 06/11/20 10:05 06/12/20 09:50 White Blood Count 5.4 K/UL (4.8-10.8) 7.0 K/UL (4.8-10.8) 6.6 K/UL (4.8-10.8) Red Blood Count 2.75 M/UL (4.20-5.40) 2.96 M/UL (4.20-5.40) 2.82 M/UL (4.20-5.40) Hemoglobin 9.0 G/DL (12.0-16.0) 9.5 G/DL (12.0-16.0) 9.4 G/DL (12.0-16.0) Hematocrit 25.1 % (37.0-47.0) 26.9 % (37.0-47.0) 27.6 % (37.0-47.0) Mean Corpuscular Volume 91 FL (80-99) 91 FL (80-99) 98 FL (80-99) Mean Corpuscular Hemoglobin 32.6 PG (27.0-31.0) 32.1 PG (27.0-31.0) 33.4 PG (27.0-31.0) Mean Corpuscular Hemoglobin Concent 35.8 G/DL (32.0-36.0) 35.3 G/DL (32.0-36.0) 34.2 G/DL (32.0-36.0) Red Cell Distribution Width 16.5 % (11.6-14.8) 17.8 % (11.6-14.8) 17.2 % (11.6-14.8) Platelet Count 246 K/UL (150-450) 277 K/UL (150-450) 303 K/UL (150-450) Mean Platelet Volume 6.9 FL (6.5-10.1) 6.4 FL (6.5-10.1) 6.5 FL (6.5-10.1) Neutrophils (%) (Auto) 58.6 % (45.0-75.0) 57.2 % (45.0-75.0) 59.7 % (45.0-75.0) Lymphocytes (%) (Auto) 30.7 % (20.0-45.0) 30.9 % (20.0-45.0) 28.9 % (20.0-45.0) Monocytes (%) (Auto) 7.6 % (1.0-10.0) 8.2 % (1.0-10.0) 8.1 % (1.0-10.0) Eosinophils (%) (Auto) 2.1 % (0.0-3.0) 2.4 % (0.0-3.0) 1.9 % (0.0-3.0) Basophils (%) (Auto) 1.0 % (0.0-2.0) 1.3 % (0.0-2.0) 1.4 % (0.0-2.0) Sodium Level 135 MMOL/L (136-145) 133 MMOL/L (136-145) Potassium Level 3.0 MMOL/L (3.5-5.1) 3.8 MMOL/L (3.5-5.1) Chloride Level 96 MMOL/L (98-107) 95 MMOL/L (98-107) Carbon Dioxide Level 33 MMOL/L (21-32) 33 MMOL/L (21-32) Anion Gap 6 mmol/L (5-15) 5 mmol/L (5-15) Blood Urea Nitrogen 38 mg/dL (7-18) 41 mg/dL (7-18) Creatinine 1.3 MG/DL (0.55-1.30) 1.4 MG/DL (0.55-1.30) Estimat Glomerular Filtration Rate 39.4 mL/min (>60) 36.2 mL/min (>60) Glucose Level 115 MG/DL (74-106) 149 MG/DL (74-106) Calcium Level 9.1 MG/DL (8.5-10.1) 9.1 MG/DL (8.5-10.1) Phosphorus Level 2.9 MG/DL (2.5-4.9) 3.2 MG/DL (2.5-4.9) Magnesium Level 2.3 MG/DL (1.8-2.4) 2.2 MG/DL (1.8-2.4) Total Bilirubin 1.2 MG/DL (0.2-1.0) 1.1 MG/DL (0.2-1.0) Direct Bilirubin 0.4 MG/DL (0.0-0.3) 0.4 MG/DL (0.0-0.3) Aspartate Amino Transf (AST/SGOT) 20 U/L (15-37) 20 U/L (15-37) Alanine Aminotransferase (ALT/SGPT) < 6 U/L (12-78) 11 U/L (12-78) Alkaline Phosphatase 48 U/L (46-116) 50 U/L (46-116) Total Protein 7.8 G/DL (6.4-8.2) 8.0 G/DL (6.4-8.2) Albumin 3.5 G/DL (3.4-5.0) 3.6 G/DL (3.4-5.0) Globulin 4.3 g/dL 4.4 g/dL Albumin/Globulin Ratio 0.8 (1.0-2.7) 0.8 (1.0-2.7) Height (Feet): 5 Height (Inches): 3.00 Weight (Pounds): 183 Objective Physical Exam: Vitals: reviewed General: NAD HEENT: nc, at Neck: supple Chest: decreased breath sounds bilaterally, crackles+++ 15L NRM Cardiovascular: RRR, no s3, s4 Abdomen: soft, nontender, nd Extremities: 1-2 + edema Neuro: nonverbal Frank Escobar MD Jun 13, 2020 06:26
[2020-06-13 08:00] VITALS: BP 115/47
[2020-06-13] MEDS: Furosemide 40mg tab ORAL SCH (08:13)
[2020-06-13] MEDS: Docusate 100mg/10ml Liq ORAL SCH ×2 (08:13→18:00)
[2020-06-13] MEDS: Lactulose 20gm/30ml UDC ORAL SCH ×3 (08:13→18:00)
[2020-06-13] MEDS: Heparin 5000 units/ml inj SUBQ SCH ×2 (08:14→20:40)
--- NOTE | 2020-06-13 10:13 | Pulmonology Progress Note ---
Subjective ROS Limited/Unobtainable: Yes Interval Events: none major reported per nursing Constitutional: Denies: fever HEENT: Repors: no symptoms Respiratory: Reports: no symptoms Cardiovascular: Reports: no symptoms Gastrointestinal/Abdominal: Reports: no symptoms Genitourinary: Reports: no symptoms Allergies: Coded Allergies: LITHIUM (Verified Allergy, Unknown, 02/07/19) Objective Last 24 Hour Vital Signs Date Time Temp Pulse Resp B/P (MAP) Pulse Ox O2 Delivery O2 Flow Rate FiO2 06/13/20 09:00 Room Air 06/13/20 08:00 66 06/13/20 08:00 71 16 06/13/20 04:00 96.8 64 16 141/43 (75) 92 06/13/20 04:00 64 06/13/20 00:00 97.5 63 18 160/41 (80) 96 06/13/20 00:00 65 06/12/20 21:00 Room Air 06/12/20 20:00 96.3 62 20 114/55 (74) 95 06/12/20 20:00 60 06/12/20 19:55 95 Nasal Cannula 3.0 32 06/12/20 16:00 58 06/12/20 16:00 97.6 67 18 107/55 (72) 97 06/12/20 14:45 65 18 111/48 98 06/12/20 14:15 68 18 107/40 97 06/12/20 12:00 53 Intake and Output 06/12/20 06/13/20 19:00 07:00 Intake Total 650 ml 200 ml Output Total 800 ml Balance -150 ml 200 ml Intake Oral 650 ml 200 ml Output Urine Total 800 ml # Voids 3 Objective 06/11 no change 06/10 remains on room air; off isolation now 06/09 seen in tele; now saturating at 93-94% on room air 06/06 no change 06/05 now on 14L Ventimask saturating at high 90s 05/31 on Venturi mask saturating well 05/29/2020 now on 2 lpm NC saturating at 97%; in transfusion 05/28/2020 in SDU; currently on Venturi mask 14L FiO2 14L saturating well 05/27/2020 in SDU; s/p failed attempt at switching to NC due to patient noncompliance; currently saturating low-mid 90s when she is actually on Venturi mask 14L 05/26/2020 in SDU; keeps taking off her NRB and desats to 79-80% 05/24/2020 in ICUD; restless, saturating ok with NC 05/19/2020 Pt in ICU; full code General Appearance: no acute distress HEENT: normocephalic Respiratory: no respiratory distress, decreased breath sounds Cardiovascular: normal rate Abdomen: soft, non tender, other - obese Extremities: other - b/l 2+ pitting edema Neurologic: disoriented Current Medications Medications (Trade) Dose Ordered Sig/Angie Route PRN Reason Start Time Stop Time Status Last Admin Dose Admin Acetaminophen (Tylenol) 650 mg Q6H PRN NG Fever >100.5 06/12/20 08:00 07/12/20 07:59 Acetaminophen (Tylenol) 650 mg Q6H PRN NG Mild Pain (Pain Scale 1-3) 06/12/20 08:00 07/12/20 07:59 Chlorhexidine Gluconate (Ruba-Hex 2%) 1 applic DAILY@2000 TOPIC 06/12/20 20:00 09/10/20 19:59 06/12/20 20:00 Clonidine HCl (Catapres Tab) 0.1 mg Q4H PRN ORAL sbp>170 05/11/20 17:15 08/09/20 17:14 Docusate Sodium (Colace) 100 mg TWICE A DAY ORAL 06/05/20 09:00 07/05/20 08:59 06/13/20 08:13 Furosemide (Lasix) 40 mg DAILY ORAL 06/09/20 09:00 07/09/20 08:59 06/13/20 08:13 Haloperidol Lactate (Haldol) 5 mg Q6H PRN IM Agitation 05/13/20 20:45 06/27/20 20:44 05/28/20 02:40 Heparin Sodium (Porcine) (Heparin 5000 units/ml) 5,000 units EVERY 12 HOURS SUBQ 05/25/20 21:00 07/09/20 20:59 06/13/20 08:14 Lactulose (Cephulac) 20 gm THREE TIMES A DAY ORAL 06/08/20 18:00 07/08/20 17:59 06/13/20 08:13 Lansoprazole (Prevacid) 30 mg BID ORAL 06/05/20 18:00 07/05/20 17:59 06/13/20 08:13 Levothyroxine Sodium (Synthroid) 50 mcg DAILY@0630 ORAL 06/13/20 06:30 07/13/20 06:29 06/13/20 06:41 Polyethylene Glycol (Miralax) 17 gm BEDTIME ORAL 05/25/20 21:00 06/24/20 20:59 06/12/20 21:00 Quetiapine Fumarate (SEROqueL) 50 mg Q12HR ORAL 06/09/20 21:00 07/24/20 20:59 06/13/20 08:13 Assessment/Plan Assessment/Plan 1. Bilateral COVID-19 multilobar pneumonia. - s/p ETT - Afebrile - s/p Azithromycin, Ceftriaxone, dexamethasone, and remdesivir - CXR 05/31 Patchy bilateral airspace consolidations, consistent with multifocal infiltrate, similar in appearance to previous study from 05/30; Stable, small bilateral pleural effusions. - COVID-19 PCR 06/02 inconclusive result - COVID-19 PCR 06/04 positive - now off isolation - provide supplemental oxygen as needed 2. Hx of COPD. 3. Schizophrenia/psychosis - On haloperidol per Dr. Hernandez 4. Hypoxia. -Now on room air; saturating well - X-ray chest on 06/07 shows significantly improved bilateral pulmonary infiltrates - Now on oral Lasix 40 mg - off Diamox - recommend continued diuresis with ongoing BUN/Cr monitoring 5. Anemia; improved - Stool OB neg 6. SSS - plan for pacer noted; per cardio DVT ppx The care for this patient was discussed with my supervising physician Time spent for this case was approximately 31 minutes Trae Avilez Jun 13, 2020 10:13 Sincere Myers MD Jun 13, 2020 15:04
[2020-06-13 12:00] VITALS: BP 115/43
--- NOTE | 2020-06-13 13:17 | Surgery Progress Note ---
Surgery Progress Note Subjective Additional Comments picc line placed no n/v respiratory stable comfortable Objective Last 24 Hour Vital Signs Date Time Temp Pulse Resp B/P (MAP) Pulse Ox O2 Delivery O2 Flow Rate FiO2 06/13/20 12:00 97.9 68 18 115/43 (67) 96 06/13/20 09:00 Room Air 06/13/20 08:00 66 06/13/20 08:00 97.2 71 16 115/47 (69) 96 71 06/13/20 04:00 96.8 64 16 141/43 (75) 92 06/13/20 04:00 64 06/13/20 00:00 97.5 63 18 160/41 (80) 96 06/13/20 00:00 65 06/12/20 21:00 Room Air 06/12/20 20:00 96.3 62 20 114/55 (74) 95 06/12/20 20:00 60 06/12/20 19:55 95 Nasal Cannula 3.0 32 06/12/20 16:00 58 06/12/20 16:00 97.6 67 18 107/55 (72) 97 06/12/20 14:45 65 18 111/48 98 06/12/20 14:15 68 18 107/40 97 I&O Intake and Output 06/12/20 06/13/20 19:00 07:00 Intake Total 650 ml 200 ml Output Total 800 ml Balance -150 ml 200 ml Intake Oral 650 ml 200 ml Output Urine Total 800 ml # Voids 3 Dressing: dry Wound: clean Cardiovascular: RSR Respiratory: clear, decreased breath sounds Abdomen: soft, non-tender, present bowel sounds, non-distended Extremities: no edema, no tenderness, no cyanosis, other Plan Problems: (1) Anemia (2) Hypercapnic respiratory failure Assessment & Plan: respiratory insufficiency requiring prolonged ventilatory support unable to wean vent safely after multiple attempts discussed with pcp. discussed with pulm discussed with patient guardian. patient unable to consent. no nok or poa. given critical care and condition not recommended to await court decision which during pandemic can take long time. medically necessary to proceed with trach in patients best interest. self extubated will monitor DAILY ESTIMATED NEEDS: Needs based on Critical care, 70kg abw 22-28 kcals/kg 7841-2173 total kcals 1.2-2 g protein/kg 84-140 g total protein 20-25 mL/kg 7557-2884 total fluid mLs NUTRITION DIAGNOSIS: Swallowing difficulty r/t respiratory status as evidenced by pt orally intubated, was pending trach placement, s/p self-extubation on 05/22, now on texture modified diet. CURRENT DIET:REGULAR, puree w/ NTL PO DIET RECOMMENDATIONS: Maintain liberalized REGULAR diet/ texture per FLOOR CARE SPECIALIST ADDITIONAL RECOMMENDATIONS: 1) Calibrated bed scale wts 2) Rec bowel regimen -> now added 3) Monitor lytes, replete as needed 4) FLOOR CARE SPECIALIST f/up regarding texture clarification 5) Monitor PO intake and tolerance Ensure Enlive TID w/ meals w/ 3rd Ensure as pm snack to prevent am hypoglycemia (3) COVID-19 Assessment & Plan: ++ improving repeat (4) COPD (chronic obstructive pulmonary disease) (5) Psychosis (6) Renal failure (ARF), acute on chronic (7) CHF exacerbation (8) Hypoxia (9) Hypocalcemia (10) Bradycardia (11) Dyspnea (12) Dyspnea (13) Respiratory distress (14) Hyperlipidemia (15) Hypothyroidism (16) Hypothyroidism (17) Obese (18) Psychosis (19) Respiratory failure (20) Pneumonia (21) Acute and chronic respiratory failure (22) Diabetes mellitus type 2 in nonobese (23) COVID-19 Assessment & Plan: right arm mass noted seems like small residual hematoma from prior IV line vs infiltration no bleeding no signs of infection no pain will monitor (24) Anemia (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
--- NOTE | 2020-06-13 13:38 | Infectious Diseases Prog Note ---
Assessment/Plan Assessment/Plan IMPRESSION: COVID-19 disease, Acute respiratory failure, COPD, Diastolic CHF, Mitral valve regurgitation, Anemia, Parkinson disease, schizoaffective disorder, Dementia, Obstructive sleep apnea, Hypothyroidism. 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 SSS with pause RECOMMENDATION: Finished dexamethasone & Remdesivir course Observe off of antibiotic Waiting for pacemaker placement Subjective Neurologic: Reports: confusion, other - on restraint Allergies: Coded Allergies: LITHIUM (Verified Allergy, Unknown, 02/07/19) Objective Last 24 Hour Vital Signs Date Time Temp Pulse Resp B/P (MAP) Pulse Ox O2 Delivery O2 Flow Rate FiO2 06/13/20 12:00 97.9 68 18 115/43 (67) 96 06/13/20 09:00 Room Air 06/13/20 08:00 66 06/13/20 08:00 97.2 71 16 115/47 (69) 96 71 06/13/20 04:00 96.8 64 16 141/43 (75) 92 06/13/20 04:00 64 06/13/20 00:00 97.5 63 18 160/41 (80) 96 06/13/20 00:00 65 06/12/20 21:00 Room Air 06/12/20 20:00 96.3 62 20 114/55 (74) 95 06/12/20 20:00 60 06/12/20 19:55 95 Nasal Cannula 3.0 32 06/12/20 16:00 58 06/12/20 16:00 97.6 67 18 107/55 (72) 97 06/12/20 14:45 65 18 111/48 98 06/12/20 14:15 68 18 107/40 97 Height (Feet): 5 Height (Inches): 3.00 Weight (Pounds): 183 HEENT: mucous membranes moist Respiratory/Chest: lungs clear Cardiovascular: normal rate, other - R arm PICC line Abdomen: soft, non tender Extremities: no edema Neurologic/Psychiatric: other - sleeping Current Medications Medications (Trade) Dose Ordered Sig/Angie Route PRN Reason Start Time Stop Time Status Last Admin Dose Admin Acetaminophen (Tylenol) 650 mg Q6H PRN NG Fever >100.5 06/12/20 08:00 07/12/20 07:59 Acetaminophen (Tylenol) 650 mg Q6H PRN NG Mild Pain (Pain Scale 1-3) 06/12/20 08:00 07/12/20 07:59 Chlorhexidine Gluconate (Ruba-Hex 2%) 1 applic DAILY@2000 TOPIC 06/12/20 20:00 09/10/20 19:59 06/12/20 20:00 Clonidine HCl (Catapres Tab) 0.1 mg Q4H PRN ORAL sbp>170 05/11/20 17:15 08/09/20 17:14 Docusate Sodium (Colace) 100 mg TWICE A DAY ORAL 06/05/20 09:00 07/05/20 08:59 06/13/20 08:13 Furosemide (Lasix) 40 mg DAILY ORAL 06/09/20 09:00 07/09/20 08:59 06/13/20 08:13 Haloperidol Lactate (Haldol) 5 mg Q6H PRN IM Agitation 05/13/20 20:45 06/27/20 20:44 05/28/20 02:40 Heparin Sodium (Porcine) (Heparin 5000 units/ml) 5,000 units EVERY 12 HOURS SUBQ 05/25/20 21:00 07/09/20 20:59 06/13/20 08:14 Lactulose (Cephulac) 20 gm THREE TIMES A DAY ORAL 06/08/20 18:00 07/08/20 17:59 06/13/20 08:13 Lansoprazole (Prevacid) 30 mg BID ORAL 06/05/20 18:00 07/05/20 17:59 06/13/20 08:13 Levothyroxine Sodium (Synthroid) 50 mcg DAILY@0630 ORAL 06/13/20 06:30 07/13/20 06:29 06/13/20 06:41 Polyethylene Glycol (Miralax) 17 gm BEDTIME ORAL 05/25/20 21:00 06/24/20 20:59 06/12/20 21:00 Quetiapine Fumarate (SEROqueL) 50 mg Q12HR ORAL 06/09/20 21:00 07/24/20 20:59 06/13/20 08:13 Lei Chan MD Jun 13, 2020 13:38
--- NOTE | 2020-06-13 14:36 | Cardiac Electrophysiology PN ---
Assessment/Plan Assessment/Plan 1. Covid PNA and respiratory failure. S/P Remdesevir and Dexamethasone Self extubated on RA. Off Abx per ID. On Lasix [address] Myers Now off isolation 2. SSS with 8 pauses of more than 3 seconds including 9 and 10 second pauses off any QUEZADA or AVN blockers. Will need pacer consent from conservator/court ID cleared the patient 3. Hypotension. Off Dopamine. EF 55% 4. Schizophrenia and psychosis. 5. S/P MRSA & Klebsiella pneumonia YOSELYN RN and Dr Chan from ID Subjective Subjective Self extubated on 05/22/20 off Covid isolation S/P Left arm PICC line placement as has no iv access. Had multiple pauses of more than 3 seconds including a 4s and 7s and a 10 second pause at 1 AM on 05/31 Had pauses of 7, 8 and 6 seconds again 06/01/20 Had positive blood Cx and ID clearance and consent pending for pacer implant On . Now has RUE PICC line Objective Last 24 Hour Vital Signs Date Time Temp Pulse Resp B/P (MAP) Pulse Ox O2 Delivery O2 Flow Rate FiO2 06/13/20 12:00 76 06/13/20 12:00 97.9 68 18 115/43 (67) 96 06/13/20 09:00 Room Air 06/13/20 08:00 66 06/13/20 08:00 97.2 71 16 115/47 (69) 96 71 06/13/20 04:00 96.8 64 16 141/43 (75) 92 06/13/20 04:00 64 06/13/20 00:00 97.5 63 18 160/41 (80) 96 06/13/20 00:00 65 06/12/20 21:00 Room Air 06/12/20 20:00 96.3 62 20 114/55 (74) 95 06/12/20 20:00 60 06/12/20 19:55 95 Nasal Cannula 3.0 32 06/12/20 16:00 58 06/12/20 16:00 97.6 67 18 107/55 (72) 97 06/12/20 14:45 65 18 111/48 98 Intake and Output 06/12/20 06/13/20 19:00 07:00 Intake Total 650 ml 200 ml Output Total 800 ml Balance -150 ml 200 ml Intake Oral 650 ml 200 ml Output Urine Total 800 ml # Voids 3 Objective HEAD AND NECK: Positive JVD. LUNGS: Decreased breath sounds. CARDIOVASCULAR: Regular S1 and S2 with no gallop. ABDOMEN: Obese. EXTREMITIES: Bilateral 2+ pitting edema. Cameron Davies MD Jun 13, 2020 14:36
[2020-06-13 16:00] VITALS: BP 117/40
--- NOTE | 2020-06-13 17:13 | Nephrology Progress Note ---
Assessment/Plan Problem List: (1) Renal failure (ARF), acute on chronic (2) Hypercapnic respiratory failure (3) CHF exacerbation (4) Anemia Assessment Azotemia/renal failure Acute respiratory failure most likely secondary to CHF, on mechanical ventilation History of COPD Hypertension Hyperlipemia Schizophrenia/psychosis Plan June 13: No labs drawn today. Patient clinically stable. Continue to monitor renal parameters. June 12: Lab reviewed. Renal parameters are stable. Continue per consultants. June 11: Labs reviewed. Low potassium noted and addressed. Continue per consultants. Continue to monitor renal parameters. June 10: No CHEM panel drawn today. Check lab tomorrow. Continue per consultants. On room air oxygen June 09: Labs reviewed. Renal parameters stable. Continue per current treatment plan. June 08: Labs reviewed. Low potassium addressed. Continue per consultants. June 07: Stable renal parameters. Continue per consultants. Overall stable. June 06: Status quo. Remains on Venturi mask. Labs reviewed. Renal parameters stable. Continue per consultants. June 05: Lethargic. On Venturi mask. Labs reviewed. Returning bicarb. Continue to monitor ABG and electrolytes. Low potassium addressed. June 04: Remains on Venturi mask. No can panel done today. ABG results reviewed. Continue per pulmonary. June 03: Poor respiratory status. ABG noted. Patient hypoxic. Renal parameters somewhat stable. Continue per pulmonary. June 02: Labs reviewed. Low phosphorus replaced. Patient has periodic severe bradycardia. Continue per cardiology. June 01: Labs reviewed. Low magnesium replaced. Renal parameters stable. Hemoglobin level reasonable. Continue per consultants. May 31: Labs reviewed. Abnormal electrolytes at rest. Hemoglobin higher. Discussed with DARREL Cooper. Continue per consultants. May 30: Lab reviewed. Potassium and phosphorus replaced. Hemoglobin higher after transfusion. Continue per consultants. May 29: Lab reviewed. Patient anemic. Electrolyte abnormalities reviewed and addressed. Continue per consultants. Remains stable from renal standpoint of view. May 28: Patient was not transfused despite of my order since yesterday. Will defer transfusion to PMD/gasoline finisher. Patient remains stable from renal standpoint of view. Continue per consultants. Discussed with Marlene nursing charge in [place]. May 27: Remains on Venturi mask. Labs reviewed. Abnormal electrolytes addressed. Hemoglobin low. Will transfuse 1 unit of packed RBCs today May 26: On Venturi mask. Labs reviewed. Abnormal electrolytes addressed. Continue per consultants and pulmonary support. May 25: On Venturi mask. Lethargic. No labs drawn today. Will monitor renal parameters. Per orders. May 24: Remains extubated. Will start on diet with high alert for possible aspiration. Continue to monitor renal parameters. May 23: Continues to be extubated. On nonrebreathing mask. Labs reviewed. Renal parameters stable. Discussed with RN. Continue per current management. May 22: Now extubated on nonrebreathing mask. Labs reviewed. Renal parameters stable. Abnormal electrolytes addressed. Discussed with RN. May 21: Remains intubated. Labs reviewed. Abnormal electrolytes addressed. Discussed with RN. May 20: Remains intubated. Abnormal electrolyte noted on today's lab results and addressed. Continue per consultants. May 19: Patient remains intubated. Labs reviewed. Abnormal electrolytes addressed. Continue per current management. May 18: Patient seen in ICU. Remains intubated. Weaning is being tried. Discussed with RN. Labs reviewed. Abnormal electrolyte addressed. Continue per consultants. May 17: Labs reviewed. Remains intubated. Stable from renal standpoint of view. Continue weaning. Discussed with RN. May 16: Labs reviewed. Remains intubated. Remains full code. Stable from renal standpoint of view. Abnormal electrolytes addressed. May 15: Labs reviewed. Renal parameters stable. Discussed with RN. Patient remains intubated on ventilator and full code. Continue per consultants. May 14: Labs reviewed. Discussed with RN. Abnormal electrolyte addressed. Continue per current management. Patient seen in ICU. Discussed with RN. Today's labs pending. Patient remains on 6 mics of dopamine. Pulmonary support Monitor intake and output Monitor electrolytes Continue per consultants Per orders Subjective ROS Limited/Unobtainable: No Constitutional: Reports: malaise, weakness Objective Objective Last 24 Hour Vital Signs Date Time Temp Pulse Resp B/P (MAP) Pulse Ox O2 Delivery O2 Flow Rate FiO2 06/13/20 12:00 76 06/13/20 12:00 97.9 68 18 115/43 (67) 96 06/13/20 09:00 Room Air 06/13/20 08:00 66 06/13/20 08:00 97.2 71 16 115/47 (69) 96 71 06/13/20 04:00 96.8 64 16 141/43 (75) 92 06/13/20 04:00 64 1/1/21 00:00 97.5 63 18 160/41 (80) 96 06/13/20 00:00 65 06/12/20 21:00 Room Air 06/12/20 20:00 96.3 62 20 114/55 (74) 95 06/12/20 20:00 60 06/12/20 19:55 95 Nasal Cannula 3.0 32 Intake and Output 06/12/20 06/13/20 19:00 07:00 Intake Total 650 ml 200 ml Output Total 800 ml Balance -150 ml 200 ml Intake Oral 650 ml 200 ml Output Urine Total 800 ml # Voids 3 Height (Feet): 5 Height (Inches): 3.00 Weight (Pounds): 183 General Appearance: no apparent distress Cardiovascular: normal rate Respiratory/Chest: decreased breath sounds Abdomen: soft Bryan Ochoa MD Jun 13, 2020 17:13
--- NOTE | 2020-06-13 19:08 | General Progress Note ---
Subjective Allergies: Coded Allergies: LITHIUM (Verified Allergy, Unknown, 02/07/19) Subjective above noted comfortable, resting no abd pain Objective Last 24 Hour Vital Signs Date Time Temp Pulse Resp B/P (MAP) Pulse Ox O2 Delivery O2 Flow Rate FiO2 06/13/20 16:00 97.2 65 18 117/40 (65) 96 06/13/20 16:00 73 06/13/20 12:00 76 06/13/20 12:00 97.9 68 18 115/43 (67) 96 06/13/20 09:00 Room Air 06/13/20 08:00 66 06/13/20 08:00 97.2 71 16 115/47 (69) 96 71 06/13/20 04:00 96.8 64 16 141/43 (75) 92 06/13/20 04:00 64 06/13/20 00:00 97.5 63 18 160/41 (80) 96 06/13/20 00:00 65 06/12/20 21:00 Room Air 06/12/20 20:00 96.3 62 20 114/55 (74) 95 06/12/20 20:00 60 06/12/20 19:55 95 Nasal Cannula 3.0 32 Intake and Output 06/12/20 06/13/20 19:00 07:00 Intake Total 650 ml 200 ml Output Total 800 ml Balance -150 ml 200 ml Intake Oral 650 ml 200 ml Output Urine Total 800 ml # Voids 3 Height (Feet): 5 Height (Inches): 3.00 Weight (Pounds): 183 Objective WDWN WW NCAT CTA RR abd soft no edema Assessment/Plan Status: progressing, unchanged, deteriorating Assessment/Plan: Assessment/Plan (1) Hypertension (2) Schizophrenia (3) Hyperlipidemia (4) Parkinson disease (5) Anemia (6) Obese (7) COVID (+) (8) Hypoxia (9) arrhythmia Recommendations PPI BID Follow H&H Transfuse to keep Hg>7.0 po as tolerated GI procedures at a later date, if needed bowel regimen possible pacemaker placement Aria Chicas MD Jun 13, 2020 19:08
[2020-06-13 20:00] VITALS: BP 142/51
--- NOTE | 2020-06-13 20:11 | General Progress Note ---
Subjective ROS Limited/Unobtainable: Yes Allergies: Coded Allergies: LITHIUM (Verified Allergy, Unknown, 02/07/19) Objective Last 24 Hour Vital Signs Date Time Temp Pulse Resp B/P (MAP) Pulse Ox O2 Delivery O2 Flow Rate FiO2 06/13/20 16:00 97.2 65 18 117/40 (65) 96 06/13/20 16:00 73 06/13/20 12:00 76 06/13/20 12:00 97.9 68 18 115/43 (67) 96 06/13/20 09:00 Room Air 06/13/20 08:00 66 06/13/20 08:00 97.2 71 16 115/47 (69) 96 71 06/13/20 04:00 96.8 64 16 141/43 (75) 92 06/13/20 04:00 64 06/13/20 00:00 97.5 63 18 160/41 (80) 96 06/13/20 00:00 65 06/12/20 21:00 Room Air Intake and Output 06/12/20 06/13/20 19:00 07:00 Intake Total 650 ml 200 ml Output Total 800 ml Balance -150 ml 200 ml Intake Oral 650 ml 200 ml Output Urine Total 800 ml # Voids 3 Height (Feet): 5 Height (Inches): 3.00 Weight (Pounds): 183 Assessment/Plan Problem List: (1) Anemia ICD Codes: D64.9 - Anemia, unspecified SNOMED: 189977577 (2) Hypercapnic respiratory failure ICD Codes: J96.92 - Respiratory failure, unspecified with hypercapnia SNOMED: 432922554 (3) COVID-19 ICD Codes: U07.1 - COVID-19 SNOMED: 147199839 (4) COPD (chronic obstructive pulmonary disease) ICD Codes: J44.9 - Chronic obstructive pulmonary disease, unspecified SNOMED: 54973939 (5) Psychosis ICD Codes: F29 - Unspecified psychosis not due to a substance or known physiological condition SNOMED: 76768887 (6) Hypoxia ICD Codes: R09.02 - Hypoxemia SNOMED: 857086494 (7) Renal failure (ARF), acute on chronic ICD Codes: N17.9 - Acute kidney failure, unspecified; N18.9 - Chronic kidney disease, unspecified SNOMED: 343915396 (8) CHF exacerbation ICD Codes: I50.9 - Heart failure, unspecified SNOMED: 473504410, [id number] Status: progressing, unchanged, deteriorating Assessment/Plan: afebrile pacer per dr pichardo refusal of care abx per id s/p bipap sepsis copd exac chf exac Dani Perera MD Jun 13, 2020 20:11
[2020-06-13] MEDS: Miralax 17gm pkt ORAL SCH (20:40)
[2020-06-13] MEDS: Dyna-Hex 2% Top Sol 2oz TOPIC SCH (20:40)
--- NOTE | 2020-06-13 20:56 | Psychiatric Progress Note ---
Psychiatry Progress Note Psychiatry Progress Note Subjective the pt has waxing and waning o consciousness on restraints episodes agitation confused Medications Current Medications Medications (Trade) Dose Ordered Sig/Angie Route PRN Reason Start Time Stop Time Status Last Admin Dose Admin Acetaminophen (Tylenol) 650 mg Q6H PRN NG Fever >100.5 06/12/20 08:00 07/12/20 07:59 Acetaminophen (Tylenol) 650 mg Q6H PRN NG Mild Pain (Pain Scale 1-3) 06/12/20 08:00 07/12/20 07:59 Chlorhexidine Gluconate (Ruba-Hex 2%) 1 applic DAILY@1999 TOPIC 06/12/20 20:00 09/10/20 19:59 06/13/20 20:40 Clonidine HCl (Catapres Tab) 0.1 mg Q4H PRN ORAL sbp>170 05/11/20 17:15 08/09/20 17:14 Docusate Sodium (Colace) 100 mg TWICE A DAY ORAL 06/05/20 09:00 07/05/20 08:59 06/13/20 08:13 Furosemide (Lasix) 40 mg DAILY ORAL 06/09/20 09:00 07/09/20 08:59 06/13/20 08:13 Haloperidol Lactate (Haldol) 5 mg Q6H PRN IM Agitation 05/13/20 20:45 06/27/20 20:44 05/28/20 02:40 Heparin Sodium (Porcine) (Heparin 5000 units/ml) 5,000 units EVERY 12 HOURS SUBQ 05/25/20 21:00 07/09/20 20:59 06/13/20 20:40 Lactulose (Cephulac) 20 gm THREE TIMES A DAY ORAL 06/08/20 18:00 07/08/20 17:59 06/13/20 08:13 Lansoprazole (Prevacid) 30 mg BID ORAL 06/05/20 18:00 07/05/20 17:59 06/13/20 08:13 Levothyroxine Sodium (Synthroid) 50 mcg DAILY@0630 ORAL 06/13/20 06:30 07/13/20 06:29 06/13/20 06:41 Polyethylene Glycol (Miralax) 17 gm BEDTIME ORAL 05/25/20 21:00 06/24/20 20:59 06/13/20 20:40 Quetiapine Fumarate (SEROqueL) 50 mg Q12HR ORAL 06/09/20 21:00 07/24/20 20:59 06/13/20 20:40 Neurological/Psychiatric: Reports: anxiety, depressed; Denies: no symptoms, emotional problems, headache, numbness, paresthesia, pre-existing deficit, seizure, tingling, tremors, weakness, other Allergies: Coded Allergies: LITHIUM (Verified Allergy, Unknown, 02/07/19) Objective Data Height (Feet): 5 Height (Inches): 3.00 Weight (Pounds): 183 General Appearance: no apparent distress Additional Comments: waxing and waning consciousness. Disoriented. Mood is neutral to agitation. Affect is flat. Thought process, there is paucity of thought process. Thought content, no suicidal or homicidal ideation. Cognition is impaired. Insight and judgment is impaired. Assessment/Plan [place] I: [place] I Acute toxic encephalopathy. Schizophrenia. [place] II Deferred. [place] III COVID-19. [place] IV Low. [place] V 20 PLAN: 1. Discontinue the IV Haldol. 2. Start the patient on Haldol IM. 3. The patient benefits from bilateral soft restraints. 4. Provide the patient with reality orientation. 5. Discussed with the nurse. Status: progressing, unchanged, deteriorating Status Narrative [place] I Acute toxic encephalopathy. Schizophrenia. [place] II Deferred. [place] III COVID-19. [place] IV Low. [place] V 20 PLAN: 1. Discontinue the IV Haldol. 2. Start the patient on Haldol IM. 3. The patient benefits from bilateral soft restraints. 4. Provide the patient with reality orientation. 5. Discussed with the nurse. Assessment/Plan: [place] I Acute toxic encephalopathy. Schizophrenia. [place] II Deferred. [place] III COVID-19. [place] IV Low. [place] V 20 PLAN: 1. Discontinue the IV Haldol. 2. Start the patient on Haldol IM. 3. The patient benefits from bilateral soft restraints. 4. Provide the patient with reality orientation. 5. Discussed with the nurse. Kiana Hernandez MD Jun 13, 2020 20:56
[2020-06-14] VITALS: BP 147/41
[2020-06-14 04:00] VITALS: BP 145/39
[2020-06-14 06:24] LABS: BASOPHILS % (AUTO) 1.4 % (0.0-2.0); EOSINOPHILS % (AUTO) 3.3 % (0.0-3.0); HEMATOCRIT 25.2 % (37.0-47.0); HEMOGLOBIN 8.3 G/DL (12.0-16.0); LYMPHOCYTES % (AUTO) 29.7 % (20.0-45.0); MEAN CORPUSCULAR VOLUME 100 FL (80-99); MONOCYTES % (AUTO) 9.1 % (1.0-10.0); NEUTROPHILS % (AUTO) 56.5 % (45.0-75.0); PLATELET COUNT 248 K/UL (150-450); RED BLOOD COUNT 2.53 M/UL (4.20-5.40); RED CELL DISTRIBUTION WIDTH 17.2 % (11.6-14.8); WHITE BLOOD COUNT 6.1 K/UL (4.8-10.8)
[2020-06-14 06:42] LABS: ALBUMIN 2.9 G/DL (3.4-5.0); ALBUMIN/GLOBULIN RATIO 0.8 (1.0-2.7); BILIRUBIN,TOTAL 0.6 MG/DL (0.2-1.0); CALCIUM 8.3 MG/DL (8.5-10.1); CREATININE 1.1 MG/DL (0.55-1.30); PHOSPHORUS 3.4 MG/DL (2.5-4.9); POTASSIUM 3.3 MMOL/L (3.5-5.1)
[2020-06-14 08:00] VITALS: BP 141/52
[2020-06-14] MEDS: Furosemide 40mg tab ORAL SCH (09:22)
[2020-06-14] MEDS: Lactulose 20gm/30ml UDC ORAL SCH ×4 (09:22→17:50)
[2020-06-14] MEDS: Docusate 100mg/10ml Liq ORAL SCH ×3 (09:22→17:50)
[2020-06-14] MEDS: Heparin 5000 units/ml inj SUBQ SCH ×2 (09:23→20:44)
--- NOTE | 2020-06-14 10:24 | Hematology/Onc Progress Note ---
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 ( combination of moderate aortic regurgitation and severe mitral regurgitation) --> diuresis as per cards --> lasix last time # Severe ascending aortic dilatation --> per Dr Keke campbell --> meds reviewed # Hypertension # Parkinson disease # Hyperlipidemia # Hypothyroidism # Dementia # Obesity # Schizophrenia --> as per [facility] --> restraints # Dvt ppx heparin sq Appreciate workday financials consultant care Subjective Allergies: Coded Allergies: LITHIUM (Verified Allergy, Unknown, 02/07/19) Subjective Subjective 06/01 nonrebreather, 15L, some mild pain in back, chest, no night sweats 06/02 remains on nonrebreather, labs are noted, no bleeding or night sweats 06/03 labs reviewed, meds noted, nonrebreather, c02 was elevated, to inform pulm 06/04 labs reviewed, meds noted, on NR, no night sweats, meds noted 06/05 is on 15lnc venturi mask, is covid iso, labs noted 06/06 labs reviewed, on venturi mask, on b/l soft wrists, meds noted 06/08 labs reviewed, on nc, no bleeding, with picc line, cbc ordered 06/09 labs reviewed, confused, on 3l nc, no night sweats, meds reviewed 06/10 is off restraints, left picc has been removed, no new changes 06/11 remains confused, is to have picc placed, per public guardian 06/12 wrist restraints, very agitated overnight, noncompliant, labs reviewed 06/13 labs noted, no bleedig, hgb remains low, cbc is pending 06/14: labs reviewed, on restraints, 02 no resp distress Objective Objective Current Medications Medications (Trade) Dose Ordered Sig/Angie Route PRN Reason Start Time Stop Time Status Last Admin Dose Admin Acetaminophen (Tylenol) 650 mg Q6H PRN NG Fever >100.5 06/12/20 08:00 07/12/20 07:59 Acetaminophen (Tylenol) 650 mg Q6H PRN NG Mild Pain (Pain Scale 1-3) 06/12/20 08:00 07/12/20 07:59 Chlorhexidine Gluconate (Ruba-Hex 2%) 1 applic DAILY@2000 TOPIC 06/12/20 20:00 09/10/20 19:59 06/13/20 20:40 Clonidine HCl (Catapres Tab) 0.1 mg Q4H PRN ORAL sbp>170 05/11/20 17:15 08/09/20 17:14 Docusate Sodium (Colace) 100 mg TWICE A DAY ORAL 06/05/20 09:00 07/05/20 08:59 06/14/20 09:22 Furosemide (Lasix) 40 mg DAILY ORAL 06/09/20 09:00 07/09/20 08:59 06/14/20 09:22 Haloperidol Lactate (Haldol) 5 mg Q6H PRN IM Agitation 05/13/20 20:45 06/27/20 20:44 05/28/20 02:40 Heparin Sodium (Porcine) (Heparin 5000 units/ml) 5,000 units EVERY 12 HOURS SUBQ 05/25/20 21:00 07/09/20 20:59 06/14/20 09:23 Lactulose (Cephulac) 20 gm THREE TIMES A DAY ORAL 06/08/20 18:00 07/08/20 17:59 06/14/20 09:22 Lansoprazole (Prevacid) 30 mg BID ORAL 06/05/20 18:00 07/05/20 17:59 06/14/20 09:22 Levothyroxine Sodium (Synthroid) 50 mcg DAILY@0630 ORAL 06/13/20 06:30 07/13/20 06:29 06/14/20 06:04 Polyethylene Glycol (Miralax) 17 gm BEDTIME ORAL 05/25/20 21:00 06/24/20 20:59 06/13/20 20:40 Quetiapine Fumarate (SEROqueL) 50 mg Q12HR ORAL 06/09/20 21:00 07/24/20 20:59 06/14/20 09:22 Last 24 Hour Vital Signs Date Time Temp Pulse Resp B/P (MAP) Pulse Ox O2 Delivery O2 Flow Rate FiO2 06/14/20 04:00 69 06/14/20 04:00 98.1 65 20 145/39 (74) 98 06/14/20 00:00 97.0 62 18 147/41 (76) 94 06/14/20 00:00 60 06/13/20 21:00 Room Air 06/13/20 20:00 97.8 69 18 142/51 (81) 97 06/13/20 20:00 65 06/13/20 16:00 97.2 65 18 117/40 (65) 96 06/13/20 16:00 73 06/13/20 12:00 76 06/13/20 12:00 97.9 68 18 115/43 (67) 96 06/13/20 09:00 Room Air 06/13/20 08:00 66 06/13/20 08:00 97.2 71 16 115/47 (69) 96 71 06/13/20 04:00 96.8 64 16 141/43 (75) 92 06/13/20 04:00 64 06/13/20 00:00 97.5 63 18 160/41 (80) 96 06/13/20 00:00 65 06/12/20 21:00 Room Air 06/12/20 20:00 96.3 62 20 114/55 (74) 95 06/12/20 20:00 60 06/12/20 19:55 95 Nasal Cannula 3.0 32 06/12/20 16:00 58 06/12/20 16:00 97.6 67 18 107/55 (72) 97 06/12/20 14:45 65 18 111/48 98 06/12/20 14:15 68 18 107/40 97 06/12/20 12:00 53 Intake and Output 06/13/20 06/14/20 19:00 07:00 # Voids 3 1 Labs Test 06/12/20 09:50 06/14/20 04:00 White Blood Count 6.6 K/UL (4.8-10.8) 6.1 K/UL (4.8-10.8) Red Blood Count 2.82 M/UL (4.20-5.40) 2.53 M/UL (4.20-5.40) Hemoglobin 9.4 G/DL (12.0-16.0) 8.3 G/DL (12.0-16.0) Hematocrit 27.6 % (37.0-47.0) 25.2 % (37.0-47.0) Mean Corpuscular Volume 98 FL (80-99) 100 FL (80-99) Mean Corpuscular Hemoglobin 33.4 PG (27.0-31.0) 33.0 PG (27.0-31.0) Mean Corpuscular Hemoglobin Concent 34.2 G/DL (32.0-36.0) 33.1 G/DL (32.0-36.0) Red Cell Distribution Width 17.2 % (11.6-14.8) 17.2 % (11.6-14.8) Platelet Count 303 K/UL (150-450) 248 K/UL (150-450) Mean Platelet Volume 6.5 FL (6.5-10.1) 6.2 FL (6.5-10.1) Neutrophils (%) (Auto) 59.7 % (45.0-75.0) 56.5 % (45.0-75.0) Lymphocytes (%) (Auto) 28.9 % (20.0-45.0) 29.7 % (20.0-45.0) Monocytes (%) (Auto) 8.1 % (1.0-10.0) 9.1 % (1.0-10.0) Eosinophils (%) (Auto) 1.9 % (0.0-3.0) 3.3 % (0.0-3.0) Basophils (%) (Auto) 1.4 % (0.0-2.0) 1.4 % (0.0-2.0) Sodium Level 133 MMOL/L (136-145) 139 MMOL/L (136-145) Potassium Level 3.8 MMOL/L (3.5-5.1) 3.3 MMOL/L (3.5-5.1) Chloride Level 95 MMOL/L (98-107) 103 MMOL/L (98-107) Carbon Dioxide Level 33 MMOL/L (21-32) 33 MMOL/L (21-32) Anion Gap 5 mmol/L (5-15) 3 mmol/L (5-15) Blood Urea Nitrogen 41 mg/dL (7-18) 33 mg/dL (7-18) Creatinine 1.4 MG/DL (0.55-1.30) 1.1 MG/DL (0.55-1.30) Estimat Glomerular Filtration Rate 36.2 mL/min (>60) 47.8 mL/min (>60) Glucose Level 149 MG/DL (74-106) 86 MG/DL (74-106) Calcium Level 9.1 MG/DL (8.5-10.1) 8.3 MG/DL (8.5-10.1) Phosphorus Level 3.2 MG/DL (2.5-4.9) 3.4 MG/DL (2.5-4.9) Magnesium Level 2.2 MG/DL (1.8-2.4) 2.0 MG/DL (1.8-2.4) Total Bilirubin 1.1 MG/DL (0.2-1.0) 0.6 MG/DL (0.2-1.0) Direct Bilirubin 0.4 MG/DL (0.0-0.3) Aspartate Amino Transf (AST/SGOT) 20 U/L (15-37) 15 U/L (15-37) Alanine Aminotransferase (ALT/SGPT) 11 U/L (12-78) 7 U/L (12-78) Alkaline Phosphatase 50 U/L (46-116) 43 U/L (46-116) Total Protein 8.0 G/DL (6.4-8.2) 6.6 G/DL (6.4-8.2) Albumin 3.6 G/DL (3.4-5.0) 2.9 G/DL (3.4-5.0) Globulin 4.4 g/dL 3.7 g/dL Albumin/Globulin Ratio 0.8 (1.0-2.7) 0.8 (1.0-2.7) Height (Feet): 5 Height (Inches): 3.00 Weight (Pounds): 183 Objective Subjective Subjective HEENT: Denies: no symptoms, eye pain, blurred vision, tearing, double vision, ear pain, ear discharge, nose pain, nose congestion, throat pain, throat swelling, mouth pain, mouth swelling, other Cardiovascular: Denies: no symptoms, chest pain, edema, irregular heart rate, lightheadedness, palpitations, syncope, other Respiratory: Denies: no symptoms, cough, shortness of breath, SOB with excertion, SOB at rest, sputum, wheezing, other Gastrointestinal/Abdominal: Denies: no symptoms, abdomen distended, abdominal pain, black stools, tarry stools, blood in stool, constipated, diarrhea, difficulty swallowing, nausea, poor appetite, poor fluid intake, rectal bleeding , vomiting, other Genitourinary: Denies: no symptoms, burning, discharge, frequency, flank pain, hematuria, incontinence, pain, urgency, other Neurologic/Psychiatric: Denies: no symptoms, anxiety, depressed, emotional problems, headache, numbness, paresthesia, pre-existing deficit, seizure, tingling, tremors, weakness, other Endocrine: Denies: no symptoms, excessive sweating, flushing, intolerance to cold, intolerance to heat, increased hunger, increased thirst, increased urine, unexplained weight gain, unexplained weight loss, other Hematologic/Lymphatic: Denies: no symptoms, anemia, easy bleeding, easy bruising, adenopathy, other Charline Meléndez NP Jun 14, 2020 10:24
--- NOTE | 2020-06-14 11:58 | Pulmonology Progress Note ---
Subjective ROS Limited/Unobtainable: Yes Interval Events: none major reported per nursing Constitutional: Denies: fever HEENT: Repors: no symptoms Respiratory: Reports: no symptoms Cardiovascular: Reports: no symptoms Gastrointestinal/Abdominal: Reports: no symptoms Genitourinary: Reports: no symptoms Allergies: Coded Allergies: LITHIUM (Verified Allergy, Unknown, 02/07/19) Objective Last 24 Hour Vital Signs Date Time Temp Pulse Resp B/P (MAP) Pulse Ox O2 Delivery O2 Flow Rate FiO2 06/14/20 09:00 Room Air 06/14/20 08:00 75 06/14/20 04:00 69 06/14/20 04:00 98.1 65 20 145/39 (74) 98 06/14/20 00:00 97.0 62 18 147/41 (76) 94 06/14/20 00:00 60 06/13/20 21:00 Room Air 06/13/20 20:00 97.8 69 18 142/51 (81) 97 06/13/20 20:00 65 06/13/20 16:00 97.2 65 18 117/40 (65) 96 06/13/20 16:00 73 06/13/20 12:00 76 06/13/20 12:00 97.9 68 18 115/43 (67) 96 Intake and Output 06/13/20 06/14/20 19:00 07:00 # Voids 3 1 Objective 06/14 on RA; stable respiratory-ortega 06/11 no change 06/10 remains on room air; off isolation now 06/09 seen in tele; now saturating at 93-94% on room air 06/06 no change 06/05 now on 14L Ventimask saturating at high 90s 05/31 on Venturi mask saturating well 05/29/2020 now on 2 lpm NC saturating at 97%; in transfusion 05/28/2020 in SDU; currently on Venturi mask 14L FiO2 14L saturating well 05/27/2020 in SDU; s/p failed attempt at switching to NC due to patient nonc ompliance; currently saturating low-mid 90s when she is actually on Venturi mask 14L 05/26/2020 in SDU; keeps taking off her NRB and desats to 79-80% 05/24/2020 in ICUD; restless, saturating ok with NC 05/19/2020 Pt in ICU; full code General Appearance: no acute distress HEENT: normocephalic Respiratory: no respiratory distress, decreased breath sounds Cardiovascular: normal rate Abdomen: soft, non tender, other - obese Extremities: other - b/l 2+ pitting edema Neurologic: disoriented Laboratory Tests 06/14/20 04:00: White Blood Count 6.1, Red Blood Count 2.53L, Hemoglobin 8.3L, Hematocrit 25.2L, Mean Corpuscular Volume 100H, Mean Corpuscular Hemoglobin 33.0H, Mean Corpuscular Hemoglobin Concent 33.1, Red Cell Distribution Width 17.2H, Platelet Count 248, Mean Platelet Volume 6.2L, Neutrophils (%) (Auto) 56.5, Lymphocytes (%) (Auto) 29.7, Monocytes (%) (Auto) 9.1, Eosinophils (%) (Auto) 3.3H, Basophils (%) (Auto) 1.4, Sodium Level 139, Potassium Level 3.3L, Chloride Level 103, Carbon Dioxide Level 33H, Anion Gap 3L, Blood Urea Nitrogen 33H, Creatinine 1.1, Estimat Glomerular Filtration Rate 47.8, Glucose Level 86, Calcium Level 8.3L, Phosphorus Level 3.4, Magnesium Level 2.0, Total Bilirubin 0.6, Aspartate Amino Transf (AST/SGOT) 15, Alanine Aminotransferase (ALT/SGPT) 7L, Alkaline Phosphatase 43L, Total Protein 6.6, Albumin 2.9L, Globulin 3.7, Albumin/Globulin Ratio 0.8L Current Medications Medications (Trade) Dose Ordered Sig/Angie Route PRN Reason Start Time Stop Time Status Last Admin Dose Admin Acetaminophen (Tylenol) 650 mg Q6H PRN NG Fever >100.5 06/12/20 08:00 07/12/20 07:59 Acetaminophen (Tylenol) 650 mg Q6H PRN NG Mild Pain (Pain Scale 1-3) 06/12/20 08:00 07/12/20 07:59 Chlorhexidine Gluconate (Ruba-Hex 2%) 1 applic DAILY@1999 TOPIC 06/12/20 20:00 09/10/20 19:59 06/13/20 20:40 Clonidine HCl (Catapres Tab) 0.1 mg Q4H PRN ORAL sbp>170 05/11/20 17:15 08/09/20 17:14 Docusate Sodium (Colace) 100 mg TWICE A DAY ORAL 06/05/20 09:00 07/05/20 08:59 06/14/20 09:22 Furosemide (Lasix) 40 mg DAILY ORAL 06/09/20 09:00 07/09/20 08:59 06/14/20 09:22 Haloperidol Lactate (Haldol) 5 mg Q6H PRN IM Agitation 05/13/20 20:45 06/27/20 20:44 05/28/20 02:40 Heparin Sodium (Porcine) (Heparin 5000 units/ml) 5,000 units EVERY 12 HOURS SUBQ 05/25/20 21:00 07/09/20 20:59 06/14/20 09:23 Lactulose (Cephulac) 20 gm THREE TIMES A DAY ORAL 06/08/20 18:00 07/08/20 17:59 06/14/20 09:22 Lansoprazole (Prevacid) 30 mg BID ORAL 06/05/20 18:00 07/05/20 17:59 06/14/20 09:22 Levothyroxine Sodium (Synthroid) 50 mcg DAILY@0630 ORAL 06/13/20 06:30 07/13/20 06:29 06/14/20 06:04 Polyethylene Glycol (Miralax) 17 gm BEDTIME ORAL 05/25/20 21:00 06/24/20 20:59 06/13/20 20:40 Quetiapine Fumarate (SEROqueL) 50 mg Q12HR ORAL 06/09/20 21:00 07/24/20 20:59 06/14/20 09:22 Assessment/Plan Assessment/Plan 1. Bilateral COVID-19 multilobar pneumonia. - s/p ETT - Afebrile - s/p Azithromycin, Ceftriaxone, dexamethasone, and remdesivir - CXR 05/31 Patchy bilateral airspace consolidations, consistent with multifocal infiltrate, similar in appearance to previous study from 05/30; Stable, small bilateral pleural effusions. - COVID-19 PCR 06/02 inconclusive result - COVID-19 PCR 06/04 positive - now off isolation - provide supplemental oxygen as needed 2. Hx of COPD. 3. Schizophrenia/psychosis - On haloperidol per Dr. Hernandez 4. Hypoxia. -Now on room air; saturating well - X-ray chest on 06/07 shows significantly improved bilateral pulmonary infiltrates - Now on oral Lasix 40 mg - off Diamox - recommend continued diuresis with ongoing BUN/Cr monitoring 5. Anemia; improved - Stool OB neg 6. SSS - plan for pacer noted; per cardio DVT ppx dc per primary MD stable from pulmonary stand point of view The care for this patient was discussed with my supervising physician Time spent for this case was approximately 31 minutes Trae Avilez Jun 14, 2020 11:58
[2020-06-14 12:00] VITALS: BP 107/52
--- NOTE | 2020-06-14 12:25 | Infectious Diseases Prog Note ---
Assessment/Plan Assessment/Plan IMPRESSION: COVID-19 disease, Acute respiratory failure, COPD, Diastolic CHF, Mitral valve regurgitation, Anemia, Parkinson disease, schizoaffective disorder, Dementia, Obstructive sleep apnea, Hypothyroidism. 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 SSS with pause RECOMMENDATION: Finished dexamethasone & Remdesivir course Observe off of antibiotic Waiting for pacemaker placement Subjective ROS Limited/Unobtainable: Yes Neurologic: Reports: confusion, other - on restraint Allergies: Coded Allergies: LITHIUM (Verified Allergy, Unknown, 02/07/19) Objective Last 24 Hour Vital Signs Date Time Temp Pulse Resp B/P (MAP) Pulse Ox O2 Delivery O2 Flow Rate FiO2 06/14/20 09:00 Room Air 06/14/20 08:00 75 06/14/20 08:00 97.1 72 18 141/52 (81) 97 06/14/20 04:00 69 06/14/20 04:00 98.1 65 20 145/39 (74) 98 06/14/20 00:00 97.0 62 18 147/41 (76) 94 06/14/20 00:00 60 06/13/20 21:00 Room Air 06/13/20 20:00 97.8 69 18 142/51 (81) 97 06/13/20 20:00 65 06/13/20 16:00 97.2 65 18 117/40 (65) 96 06/13/20 16:00 73 Height (Feet): 5 Height (Inches): 3.00 Weight (Pounds): 183 HEENT: mucous membranes moist Respiratory/Chest: lungs clear Cardiovascular: normal rate, other - PICC line Abdomen: soft, non tender Extremities: no edema Neurologic/Psychiatric: alert, disoriented Laboratory Tests Test 06/14/20 04:00 White Blood Count 6.1 K/UL (4.8-10.8) Red Blood Count 2.53 M/UL (4.20-5.40) L Hemoglobin 8.3 G/DL (12.0-16.0) L Hematocrit 25.2 % (37.0-47.0) L Mean Corpuscular Volume 100 FL (80-99) H Mean Corpuscular Hemoglobin 33.0 PG (27.0-31.0) H Mean Corpuscular Hemoglobin Concent 33.1 G/DL (32.0-36.0) Red Cell Distribution Width 17.2 % (11.6-14.8) H Platelet Count 248 K/UL (150-450) Mean Platelet Volume 6.2 FL (6.5-10.1) L Neutrophils (%) (Auto) 56.5 % (45.0-75.0) Lymphocytes (%) (Auto) 29.7 % (20.0-45.0) Monocytes (%) (Auto) 9.1 % (1.0-10.0) Eosinophils (%) (Auto) 3.3 % (0.0-3.0) H Basophils (%) (Auto) 1.4 % (0.0-2.0) Sodium Level 139 MMOL/L (136-145) Potassium Level 3.3 MMOL/L (3.5-5.1) L Chloride Level 103 MMOL/L (98-107) Carbon Dioxide Level 33 MMOL/L (21-32) H Anion Gap 3 mmol/L (5-15) L Blood Urea Nitrogen 33 mg/dL (7-18) H Creatinine 1.1 MG/DL (0.55-1.30) Estimat Glomerular Filtration Rate 47.8 mL/min (>60) Glucose Level 86 MG/DL (74-106) Calcium Level 8.3 MG/DL (8.5-10.1) L Phosphorus Level 3.4 MG/DL (2.5-4.9) Magnesium Level 2.0 MG/DL (1.8-2.4) Total Bilirubin 0.6 MG/DL (0.2-1.0) Aspartate Amino Transf (AST/SGOT) 15 U/L (15-37) Alanine Aminotransferase (ALT/SGPT) 7 U/L (12-78) L Alkaline Phosphatase 43 U/L (46-116) L Total Protein 6.6 G/DL (6.4-8.2) Albumin 2.9 G/DL (3.4-5.0) L Globulin 3.7 g/dL Albumin/Globulin Ratio 0.8 (1.0-2.7) L Current Medications Medications (Trade) Dose Ordered Sig/Angie Route PRN Reason Start Time Stop Time Status Last Admin Dose Admin Acetaminophen (Tylenol) 650 mg Q6H PRN NG Fever >100.5 06/12/20 08:00 07/12/20 07:59 Acetaminophen (Tylenol) 650 mg Q6H PRN NG Mild Pain (Pain Scale 1-3) 06/12/20 08:00 07/12/20 07:59 Chlorhexidine Gluconate (Ruba-Hex 2%) 1 applic DAILY@2000 TOPIC 06/12/20 20:00 09/10/20 19:59 06/13/20 20:40 Clonidine HCl (Catapres Tab) 0.1 mg Q4H PRN ORAL sbp>170 05/11/20 17:15 08/09/20 17:14 Docusate Sodium (Colace) 100 mg TWICE A DAY ORAL 06/05/20 09:00 07/05/20 08:59 06/14/20 09:22 Furosemide (Lasix) 40 mg DAILY ORAL 06/09/20 09:00 07/09/20 08:59 06/14/20 09:22 Haloperidol Lactate (Haldol) 5 mg Q6H PRN IM Agitation 05/13/20 20:45 06/27/20 20:44 05/28/20 02:40 Heparin Sodium (Porcine) (Heparin 5000 units/ml) 5,000 units EVERY 12 HOURS SUBQ 05/25/20 21:00 07/09/20 20:59 06/14/20 09:23 Lactulose (Cephulac) 20 gm THREE TIMES A DAY ORAL 06/08/20 18:00 07/08/20 17:59 06/14/20 09:22 Lansoprazole (Prevacid) 30 mg BID ORAL 06/05/20 18:00 07/05/20 17:59 06/14/20 09:22 Levothyroxine Sodium (Synthroid) 50 mcg DAILY@0630 ORAL 06/13/20 06:30 07/13/20 06:29 06/14/20 06:04 Polyethylene Glycol (Miralax) 17 gm BEDTIME ORAL 05/25/20 21:00 06/24/20 20:59 06/13/20 20:40 Quetiapine Fumarate (SEROqueL) 50 mg Q12HR ORAL 06/09/20 21:00 07/24/20 20:59 06/14/20 09:22 Lei Chan MD Jun 14, 2020 12:25
--- NOTE | 2020-06-14 15:07 | General Progress Note ---
Subjective ROS Limited/Unobtainable: Yes Allergies: Coded Allergies: LITHIUM (Verified Allergy, Unknown, 02/07/19) Objective Last 24 Hour Vital Signs Date Time Temp Pulse Resp B/P (MAP) Pulse Ox O2 Delivery O2 Flow Rate FiO2 06/14/20 12:00 97.2 70 18 107/52 (70) 92 06/14/20 12:00 68 06/14/20 09:00 Room Air 06/14/20 08:00 75 06/14/20 08:00 97.1 72 18 141/52 (81) 97 06/14/20 04:00 69 06/14/20 04:00 98.1 65 20 145/39 (74) 98 06/14/20 00:00 97.0 62 18 147/41 (76) 94 06/14/20 00:00 60 06/13/20 21:00 Room Air 06/13/20 20:00 97.8 69 18 142/51 (81) 97 06/13/20 20:00 65 06/13/20 16:00 97.2 65 18 117/40 (65) 96 06/13/20 16:00 73 Intake and Output 06/13/20 06/14/20 19:00 07:00 # Voids 3 1 Laboratory Tests 06/14/20 04:00: White Blood Count 6.1, Red Blood Count 2.53L, Hemoglobin 8.3L, Hematocrit 25.2L, Mean Corpuscular Volume 100H, Mean Corpuscular Hemoglobin 33.0H, Mean Corpuscular Hemoglobin Concent 33.1, Red Cell Distribution Width 17.2H, Platelet Count 248, Mean Platelet Volume 6.2L, Neutrophils (%) (Auto) 56.5, Lymphocytes (%) (Auto) 29.7, Monocytes (%) (Auto) 9.1, Eosinophils (%) (Auto) 3.3H, Basophils (%) (Auto) 1.4, Sodium Level 139, Potassium Level 3.3L, Chloride Level 103, Carbon Dioxide Level 33H, Anion Gap 3L, Blood Urea Nitrogen 33H, Creatinine 1.1, Estimat Glomerular Filtration Rate 47.8, Glucose Level 86, Calcium Level 8.3L, Phosphorus Level 3.4, Magnesium Level 2.0, Total Bilirubin 0.6, Aspartate Amino Transf (AST/SGOT) 15, Alanine Aminotransferase (ALT/SGPT) 7L, Alkaline Phosphatase 43L, Total Protein 6.6, Albumin 2.9L, Globulin 3.7, Albumin/Globulin Ratio 0.8L Height (Feet): 5 Height (Inches): 3.00 Weight (Pounds): 183 Assessment/Plan Problem List: (1) Anemia ICD Codes: D64.9 - Anemia, unspecified SNOMED: 443736723 (2) Hypercapnic respiratory failure ICD Codes: J96.92 - Respiratory failure, unspecified with hypercapnia SNOMED: 659802234 (3) COVID-19 ICD Codes: U07.1 - COVID-19 SNOMED: 149804492 (4) COPD (chronic obstructive pulmonary disease) ICD Codes: J44.9 - Chronic obstructive pulmonary disease, unspecified SNOMED: 15676542 (5) Psychosis ICD Codes: F29 - Unspecified psychosis not due to a substance or known physiological condition SNOMED: 18261865 (6) Hypoxia ICD Codes: R09.02 - Hypoxemia SNOMED: 341723508 (7) Renal failure (ARF), acute on chronic ICD Codes: N17.9 - Acute kidney failure, unspecified; N18.9 - Chronic kidney disease, unspecified SNOMED: 213791871 (8) CHF exacerbation ICD Codes: I50.9 - Heart failure, unspecified SNOMED: 458840074, [id number] Status: progressing, unchanged, deteriorating Assessment/Plan: s/p bradycardia and pause afebrile no acute events s/p bipap sepsis copd exac chf exac Dani Perera MD Jun 14, 2020 15:07
--- NOTE | 2020-06-14 15:23 | Nephrology Progress Note ---
Assessment/Plan Problem List: (1) Renal failure (ARF), acute on chronic (2) Hypercapnic respiratory failure (3) CHF exacerbation (4) Anemia Assessment Azotemia/renal failure Acute respiratory failure most likely secondary to CHF, on mechanical ventilation History of COPD Hypertension Hyperlipemia Schizophrenia/psychosis Plan June 14: Labs reviewed. Low potassium replaced. Serum creatinine normalized. Continue per consultants. June 13: No labs drawn today. Patient clinically stable. Continue to monitor renal parameters. June 12: Lab reviewed. Renal parameters are stable. Continue per consultants. June 11: Labs reviewed. Low potassium noted and addressed. Continue per consultants. Continue to monitor renal parameters. June 10: No CHEM panel drawn today. Check lab tomorrow. Continue per consultants. On room air oxygen June 09: Labs reviewed. Renal parameters stable. Continue per current treatment plan. June 08: Labs reviewed. Low potassium addressed. Continue per consultants. June 07: Stable renal parameters. Continue per consultants. Overall stable. June 06: Status quo. Remains on Venturi mask. Labs reviewed. Renal parameters stable. Continue per consultants. June 05: Lethargic. On Venturi mask. Labs reviewed. Returning bicarb. Continue to monitor ABG and electrolytes. Low potassium addressed. June 04: Remains on Venturi mask. No can panel done today. ABG results r eviewed. Continue per pulmonary. June 03: Poor respiratory status. ABG noted. Patient hypoxic. Renal parameters somewhat stable. Continue per pulmonary. June 02: Labs reviewed. Low phosphorus replaced. Patient has periodic severe bradycardia. Continue per cardiology. June 01: Labs reviewed. Low magnesium replaced. Renal parameters stable. Hemoglobin level reasonable. Continue per consultants. May 31: Labs reviewed. Abnormal electrolytes at rest. Hemoglobin higher. Discussed with DARREL Cooper. Continue per consultants. May 30: Lab reviewed. Potassium and phosphorus replaced. Hemoglobin higher after transfusion. Continue per consultants. May 29: Lab reviewed. Patient anemic. Electrolyte abnormalities reviewed and addressed. Continue per consultants. Remains stable from renal standpoint of view. May 28: Patient was not transfused despite of my order since yesterday. Will defer transfusion to PMD/test lab technician. Patient remains stable from renal standpoint of view. Continue per consultants. Discussed with Marlene nursing charge in [place]. May 27: Remains on Venturi mask. Labs reviewed. Abnormal electrolytes addressed. Hemoglobin low. Will transfuse 1 unit of packed RBCs today May 26: On Venturi mask. Labs reviewed. Abnormal electrolytes addressed. Continue per consultants and pulmonary support. May 25: On Venturi mask. Lethargic. No labs drawn today. Will monitor renal parameters. Per orders. May 24: Remains extubated. Will start on diet with high alert for possible aspiration. Continue to monitor renal parameters. May 23: Continues to be extubated. On nonrebreathing mask. Labs reviewed. Renal parameters stable. Discussed with RN. Continue per current management. May 22: Now extubated on nonrebreathing mask. Labs reviewed. Renal parameters stable. Abnormal electrolytes addressed. Discussed with RN. May 21: Remains intubated. Labs reviewed. Abnormal electrolytes addressed. Discussed with RN. May 20: Remains intubated. Abnormal electrolyte noted on today's lab results and addressed. Continue per consultants. May 19: Patient remains intubated. Labs reviewed. Abnormal electrolytes addressed. Continue per current management. May 18: Patient seen in ICU. Remains intubated. Weaning is being tried. Discussed with RN. Labs reviewed. Abnormal electrolyte addressed. Continue p er consultants. May 17: Labs reviewed. Remains intubated. Stable from renal standpoint of view. Continue weaning. Discussed with RN. May 16: Labs reviewed. Remains intubated. Remains full code. Stable from renal standpoint of view. Abnormal electrolytes addressed. May 15: Labs reviewed. Renal parameters stable. Discussed with RN. Patient remains intubated on ventilator and full code. Continue per consultants. May 14: Labs reviewed. Discussed with RN. Abnormal electrolyte addressed. Continue per current management. Patient seen in ICU. Discussed with RN. Today's labs pending. Patient remains on 6 mics of dopamine. Pulmonary support Monitor intake and output Monitor electrolytes Continue per consultants Per orders Subjective ROS Limited/Unobtainable: No Constitutional: Reports: malaise, weakness Objective Objective Last 24 Hour Vital Signs Date Time Temp Pulse Resp B/P (MAP) Pulse Ox O2 Delivery O2 Flow Rate FiO2 06/14/20 12:00 97.2 70 18 107/52 (70) 92 06/14/20 12:00 68 06/14/20 09:00 Room Air 06/14/20 08:00 75 06/14/20 08:00 97.1 72 18 141/52 (81) 97 06/14/20 04:00 69 06/14/20 04:00 98.1 65 20 145/39 (74) 98 06/14/20 00:00 97.0 62 18 147/41 (76) 94 06/14/20 00:00 60 06/13/20 21:00 Room Air 06/13/20 20:00 97.8 69 18 142/51 (81) 97 06/13/20 20:00 65 06/13/20 16:00 97.2 65 18 117/40 (65) 96 06/13/20 16:00 73 Intake and Output 06/13/20 06/14/20 19:00 07:00 # Voids 3 1 Laboratory Tests 06/14/20 04:00: White Blood Count 6.1, Red Blood Count 2.53L, Hemoglobin 8.3L, Hematocrit 25.2L, Mean Corpuscular Volume 100H, Mean Corpuscular Hemoglobin 33.0H, Mean Corpuscular Hemoglobin Concent 33.1, Red Cell Distribution Width 17.2H, Platelet Count 248, Mean Platelet Volume 6.2L, Neutrophils (%) (Auto) 56.5, Lymphocytes (%) (Auto) 29.7, Monocytes (%) (Auto) 9.1, Eosinophils (%) (Auto) 3.3H, Basophils (%) (Auto) 1.4, Sodium Level 139, Potassium Level 3.3L, Chloride Level 103, Carbon Dioxide Level 33H, Anion Gap 3L, Blood Urea Nitrogen 33H, Creatinine 1.1, Estimat Glomerular Filtration Rate 47.8, Glucose Level 86, Calcium Level 8.3L, Phosphorus Level 3.4, Magnesium Level 2.0, Total Bilirubin 0.6, Aspartate Amino Transf (AST/SGOT) 15, Alanine Aminotransferase (ALT/SGPT) 7L, Alkaline Phosphatase 43L, Total Protein 6.6, Albumin 2.9L, Globulin 3.7, Albumin/Globulin Ratio 0.8L Height (Feet): 5 Height (Inches): 3.00 Weight (Pounds): 183 Cardiovascular: normal rate Respiratory/Chest: decreased breath sounds Abdomen: soft Bryan Ochoa MD Jun 14, 2020 15:23
--- NOTE | 2020-06-14 15:39 | Surgery Progress Note ---
Surgery Progress Note Subjective Additional Comments no acute events Objective Last 24 Hour Vital Signs Date Time Temp Pulse Resp B/P (MAP) Pulse Ox O2 Delivery O2 Flow Rate FiO2 06/14/20 12:00 97.2 70 18 107/52 (70) 92 06/14/20 12:00 68 06/14/20 09:00 Room Air 06/14/20 08:00 75 06/14/20 08:00 97.1 72 18 141/52 (81) 97 06/14/20 04:00 69 06/14/20 04:00 98.1 65 20 145/39 (74) 98 06/14/20 00:00 97.0 62 18 147/41 (76) 94 06/14/20 00:00 60 06/13/20 21:00 Room Air 06/13/20 20:00 97.8 69 18 142/51 (81) 97 06/13/20 20:00 65 06/13/20 16:00 97.2 65 18 117/40 (65) 96 06/13/20 16:00 73 I&O Intake and Output 06/13/20 06/14/20 19:00 07:00 # Voids 3 1 Dressing: other Wound: other Cardiovascular: RSR Respiratory: decreased breath sounds Abdomen: non-tender, present bowel sounds Extremities: no tenderness, no cyanosis Laboratory Tests Test 06/14/20 04:00 White Blood Count 6.1 K/UL (4.8-10.8) Red Blood Count 2.53 M/UL (4.20-5.40) L Hemoglobin 8.3 G/DL (12.0-16.0) L Hematocrit 25.2 % (37.0-47.0) L Mean Corpuscular Volume 100 FL (80-99) H Mean Corpuscular Hemoglobin 33.0 PG (27.0-31.0) H Mean Corpuscular Hemoglobin Concent 33.1 G/DL (32.0-36.0) Red Cell Distribution Width 17.2 % (11.6-14.8) H Platelet Count 248 K/UL (150-450) Mean Platelet Volume 6.2 FL (6.5-10.1) L Neutrophils (%) (Auto) 56.5 % (45.0-75.0) Lymphocytes (%) (Auto) 29.7 % (20.0-45.0) Monocytes (%) (Auto) 9.1 % (1.0-10.0) Eosinophils (%) (Auto) 3.3 % (0.0-3.0) H Basophils (%) (Auto) 1.4 % (0.0-2.0) Sodium Level 139 MMOL/L (136-145) Potassium Level 3.3 MMOL/L (3.5-5.1) L Chloride Level 103 MMOL/L (98-107) Carbon Dioxide Level 33 MMOL/L (21-32) H Anion Gap 3 mmol/L (5-15) L Blood Urea Nitrogen 33 mg/dL (7-18) H Creatinine 1.1 MG/DL (0.55-1.30) Estimat Glomerular Filtration Rate 47.8 mL/min (>60) Glucose Level 86 MG/DL (74-106) Calcium Level 8.3 MG/DL (8.5-10.1) L Phosphorus Level 3.4 MG/DL (2.5-4.9) Magnesium Level 2.0 MG/DL (1.8-2.4) Total Bilirubin 0.6 MG/DL (0.2-1.0) Aspartate Amino Transf (AST/SGOT) 15 U/L (15-37) Alanine Aminotransferase (ALT/SGPT) 7 U/L (12-78) L Alkaline Phosphatase 43 U/L (46-116) L Total Protein 6.6 G/DL (6.4-8.2) Albumin 2.9 G/DL (3.4-5.0) L Globulin 3.7 g/dL Albumin/Globulin Ratio 0.8 (1.0-2.7) L Plan Problems: (1) Anemia (2) Hypercapnic respiratory failure Assessment & Plan: respiratory insufficiency requiring prolonged ventilatory support unable to wean vent safely after multiple attempts discussed with pcp. discussed with pulm discussed with patient guardian. patient unable to consent. no nok or poa. given critical care and condition not recommended to await court decision which during pandemic can take long time. medically necessary to proceed with trach in patients best interest. self extubated will monitor DAILY ESTIMATED NEEDS: Needs based on Critical care, 70kg abw 22-28 kcals/kg 3858-9642 total kcals 1.2-2 g protein/kg 84-140 g total protein 20-25 mL/kg 7191-4391 total fluid mLs NUTRITION DIAGNOSIS: Swallowing difficulty r/t respiratory status as evidenced by pt orally intubated, was pending trach placement, s/p self-extubation on 05/22, now on texture modified diet. CURRENT DIET:REGULAR, puree w/ NTL PO DIET RECOMMENDATIONS: Maintain liberalized REGULAR diet/ texture per COMM[facility]ITY CENTER DIRECTOR ADDITIONAL RECOMMENDATIONS: 1) Calibrated bed scale wts 2) Rec bowel regimen -> now added 3) Monitor lytes, replete as needed 4) COMM[facility]ITY CENTER DIRECTOR f/up regarding texture clarification 5) Monitor PO intake and tolerance Ensure Enlive TID w/ meals w/ 3rd Ensure as pm snack to prevent am hypoglycemia (3) COVID-19 Assessment & Plan: ++ improving repeat (4) COPD (chronic obstructive pulmonary disease) (5) Psychosis (6) Renal failure (ARF), acute on chronic (7) CHF exacerbation (8) Hypoxia (9) Hypocalcemia (10) Bradycardia (11) Dyspnea (12) Dyspnea (13) Respiratory distress (14) Hyperlipidemia (15) Hypothyroidism (16) Hypothyroidism (17) Obese (18) Psychosis (19) Respiratory failure (20) Pneumonia (21) Acute and chronic respiratory failure (22) Diabetes mellitus type 2 in nonobese (23) COVID-19 Assessment & Plan: right arm mass noted seems like small residual hematoma from prior IV line vs infiltration no bleeding no signs of infection no pain will monitor (24) Anemia (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
[2020-06-14 16:00] VITALS: BP 132/66
--- NOTE | 2020-06-14 18:55 | General Progress Note ---
Subjective Allergies: Coded Allergies: LITHIUM (Verified Allergy, Unknown, 02/07/19) Subjective above noted comfortable, resting Objective Last 24 Hour Vital Signs Date Time Temp Pulse Resp B/P (MAP) Pulse Ox O2 Delivery O2 Flow Rate FiO2 06/14/20 16:00 68 06/14/20 16:00 97.4 74 18 132/66 (88) 96 06/14/20 12:00 97.2 70 18 107/52 (70) 92 06/14/20 12:00 68 06/14/20 09:00 Room Air 06/14/20 08:00 75 06/14/20 08:00 97.1 72 18 141/52 (81) 97 06/14/20 04:00 69 06/14/20 04:00 98.1 65 20 145/39 (74) 98 06/14/20 00:00 97.0 62 18 147/41 (76) 94 06/14/20 00:00 60 06/13/20 21:00 Room Air 06/13/20 20:00 97.8 69 18 142/51 (81) 97 06/13/20 20:00 65 Intake and Output 06/13/20 06/14/20 19:00 07:00 # Voids 3 1 Laboratory Tests 06/14/20 04:00: White Blood Count 6.1, Red Blood Count 2.53L, Hemoglobin 8.3L, Hematocrit 25.2L, Mean Corpuscular Volume 100H, Mean Corpuscular Hemoglobin 33.0H, Mean Corpuscular Hemoglobin Concent 33.1, Red Cell Distribution Width 17.2H, Platelet Count 248, Mean Platelet Volume 6.2L, Neutrophils (%) (Auto) 56.5, Lymphocytes (%) (Auto) 29.7, Monocytes (%) (Auto) 9.1, Eosinophils (%) (Auto) 3.3H, Basophils (%) (Auto) 1.4, Sodium Level 139, Potassium Level 3.3L, Chloride Level 103, Carbon Dioxide Level 33H, Anion Gap 3L, Blood Urea Nitrogen 33H, Creatinine 1.1, Estimat Glomerular Filtration Rate 47.8, Glucose Level 86, Calcium Level 8.3L, Phosphorus Level 3.4, Magnesium Level 2.0, Total Bilirubin 0.6, Aspartate Amino Transf (AST/SGOT) 15, Alanine Aminotransferase (ALT/SGPT) 7L, Alkaline Phosphatase 43L, Total Protein 6.6, Albumin 2.9L, Globulin 3.7, Albumin/Globulin Ratio 0.8L Height (Feet): 5 Height (Inches): 3.00 Weight (Pounds): 183 Objective WDWN WW NCAT CTA RR abd soft no edema Assessment/Plan Status: progressing, unchanged, deteriorating Assessment/Plan: Assessment/Plan (1) Hypertension (2) Schizophrenia (3) Hyperlipidemia (4) Parkinson disease (5) Anemia (6) Obese (7) COVID (+) (8) Hypoxia (9) arrhythmia Recommendations PPI BID Follow H&H Transfuse to keep Hg>7.0 po as tolerated GI procedures at a later date, if needed bowel regimen possible pacemaker placement Aria Chicas MD Jun 14, 2020 18:55
--- NOTE | 2020-06-14 19:27 | Cardiac Electrophysiology PN ---
Assessment/Plan Assessment/Plan 1. Covid PNA and respiratory failure. S/P Remdesevir and Dexamethasone Self extubated on RA. Off Abx per ID. On Lasix [address] Myers Now off isolation 2. SSS with 8 pauses of more than 3 seconds including 9 and 10 second pauses off any QUEZADA or AVN blockers. Awaiting pacer consent from conservator/court as ID cleared the patient for PPM implant 3. Hypotension. Off Dopamine. EF 55% 4. Schizophrenia and psychosis. 5. S/P MRSA & Klebsiella pneumonia YOSELYN RN and Dr Chan from ID Subjective Subjective Self extubated on 05/22/20 off Covid isolation Had multiple pauses of more than 3 seconds including a 4s and 7s and a 10 second pause at 1 AM on 05/31 Had pauses of 7, 8 and 6 seconds again 06/01/20 On RA.In restraints. Now has RUE PICC line Awaiting consent for PPM implant Objective Last 24 Hour Vital Signs Date Time Temp Pulse Resp B/P (MAP) Pulse Ox O2 Delivery O2 Flow Rate FiO2 06/14/20 16:00 68 06/14/20 16:00 97.4 74 18 132/66 (88) 96 06/14/20 12:00 97.2 70 18 107/52 (70) 92 06/14/20 12:00 68 06/14/20 09:00 Room Air 06/14/20 08:00 75 06/14/20 08:00 97.1 72 18 141/52 (81) 97 06/14/20 04:00 69 06/14/20 04:00 98.1 65 20 145/39 (74) 98 06/14/20 00:00 97.0 62 18 147/41 (76) 94 06/14/20 00:00 60 06/13/20 21:00 Room Air 06/13/20 20:00 97.8 69 18 142/51 (81) 97 06/13/20 20:00 65 Intake and Output 06/13/20 06/14/20 19:00 07:00 # Voids 3 1 Laboratory Tests Test 06/14/20 04:00 White Blood Count 6.1 K/UL (4.8-10.8) Red Blood Count 2.53 M/UL (4.20-5.40) L Hemoglobin 8.3 G/DL (12.0-16.0) L Hematocrit 25.2 % (37.0-47.0) L Mean Corpuscular Volume 100 FL (80-99) H Mean Corpuscular Hemoglobin 33.0 PG (27.0-31.0) H Mean Corpuscular Hemoglobin Concent 33.1 G/DL (32.0-36.0) Red Cell Distribution Width 17.2 % (11.6-14.8) H Platelet Count 248 K/UL (150-450) Mean Platelet Volume 6.2 FL (6.5-10.1) L Neutrophils (%) (Auto) 56.5 % (45.0-75.0) Lymphocytes (%) (Auto) 29.7 % (20.0-45.0) Monocytes (%) (Auto) 9.1 % (1.0-10.0) Eosinophils (%) (Auto) 3.3 % (0.0-3.0) H Basophils (%) (Auto) 1.4 % (0.0-2.0) Sodium Level 139 MMOL/L (136-145) Potassium Level 3.3 MMOL/L (3.5-5.1) L Chloride Level 103 MMOL/L (98-107) Carbon Dioxide Level 33 MMOL/L (21-32) H Anion Gap 3 mmol/L (5-15) L Blood Urea Nitrogen 33 mg/dL (7-18) H Creatinine 1.1 MG/DL (0.55-1.30) Estimat Glomerular Filtration Rate 47.8 mL/min (>60) Glucose Level 86 MG/DL (74-106) Calcium Level 8.3 MG/DL (8.5-10.1) L Phosphorus Level 3.4 MG/DL (2.5-4.9) Magnesium Level 2.0 MG/DL (1.8-2.4) Total Bilirubin 0.6 MG/DL (0.2-1.0) Aspartate Amino Transf (AST/SGOT) 15 U/L (15-37) Alanine Aminotransferase (ALT/SGPT) 7 U/L (12-78) L Alkaline Phosphatase 43 U/L (46-116) L Total Protein 6.6 G/DL (6.4-8.2) Albumin 2.9 G/DL (3.4-5.0) L Globulin 3.7 g/dL Albumin/Globulin Ratio 0.8 (1.0-2.7) L Objective HEAD AND NECK: Positive JVD. LUNGS: Decreased breath sounds. CARDIOVASCULAR: Regular S1 and S2 with no gallop. ABDOMEN: Obese. EXTREMITIES: Bilateral 2+ pitting edema. Cameron Davies MD Jun 14, 2020 19:27
[2020-06-14 20:00] VITALS: BP 107/33
[2020-06-14] MEDS: Dyna-Hex 2% Top Sol 2oz TOPIC SCH (20:42)
[2020-06-14] MEDS: Miralax 17gm pkt ORAL SCH (20:53)
[2020-06-15] VITALS: BP 119/40
[2020-06-15 04:00] VITALS: BP 113/34
[2020-06-15 08:00] VITALS: BP 112/37
[2020-06-15] MEDS: Lactulose 20gm/30ml UDC ORAL SCH ×4 (08:13→17:22)
[2020-06-15] MEDS: Docusate 100mg/10ml Liq ORAL SCH ×3 (08:13→17:22)
[2020-06-15] MEDS: Furosemide 40mg tab ORAL SCH (08:13)
[2020-06-15] MEDS: Heparin 5000 units/ml inj SUBQ SCH ×2 (08:14→20:54)
[2020-06-15 10:26] LABS: BASOPHILS % (AUTO) 0.8 % (0.0-2.0); EOSINOPHILS % (AUTO) 3.3 % (0.0-3.0); HEMATOCRIT 26.9 % (37.0-47.0); HEMOGLOBIN 9.2 G/DL (12.0-16.0); MEAN CORPUSCULAR VOLUME 98 FL (80-99); MONOCYTES % (AUTO) 6.2 % (1.0-10.0); NEUTROPHILS % (AUTO) 58.6 % (45.0-75.0); PLATELET COUNT 290 K/UL (150-450); RED BLOOD COUNT 2.75 M/UL (4.20-5.40); RED CELL DISTRIBUTION WIDTH 18.1 % (11.6-14.8); WHITE BLOOD COUNT 6.5 K/UL (4.8-10.8)
[2020-06-15 12:00] VITALS: BP 107/38
--- NOTE | 2020-06-15 12:03 | Hematology/Onc Progress Note ---
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 ( combination of moderate aortic regurgitation and severe mitral regurgitation) --> diuresis as per cards --> lasix last time # Severe ascending aortic dilatation --> per Dr Keke campbell --> meds reviewed # Hypertension # Parkinson disease # Hyperlipidemia # Hypothyroidism # Dementia # Obesity # Schizophrenia --> as per [facility] --> restraints # Dvt ppx heparin sq Appreciate senior recruitment consultant care Subjective Allergies: Coded Allergies: LITHIUM (Verified Allergy, Unknown, 02/07/19) Subjective Subjective 06/01 nonrebreather, 15L, some mild pain in back, chest, no night sweats 06/02 remains on nonrebreather, labs are noted, no bleeding or night sweats 06/03 labs reviewed, meds noted, nonrebreather, c02 was elevated, to inform pulm 06/04 labs reviewed, meds noted, on NR, no night sweats, meds noted 06/05 is on 15lnc venturi mask, is covid iso, labs noted 06/06 labs reviewed, on venturi mask, on b/l soft wrists, meds noted 06/08 labs reviewed, on nc, no bleeding, with picc line, cbc ordered 06/09 labs reviewed, confused, on 3l nc, no night sweats, meds reviewed 06/10 is off restraints, left picc has been removed, no new changes 06/11 remains confused, is to have picc placed, per public guardian 06/12 wrist restraints, very agitated overnight, noncompliant, labs reviewed 06/13 labs noted, no bleedig, hgb remains low, cbc is pending 06/14: labs reviewed, on restraints, 02 no resp distress 06/15: no acute distress afebrile. hgb 9.2 Objective Objective Current Medications Medications (Trade) Dose Ordered Sig/Angie Route PRN Reason Start Time Stop Time Status Last Admin Dose Admin Acetaminophen (Tylenol) 650 mg Q6H PRN NG Fever >100.5 06/12/20 08:00 07/12/20 07:59 Acetaminophen (Tylenol) 650 mg Q6H PRN NG Mild Pain (Pain Scale 1-3) 06/12/20 08:00 07/12/20 07:59 Chlorhexidine Gluconate (Ruba-Hex 2%) 1 applic DAILY@1999 TOPIC 06/12/20 20:00 09/10/20 19:59 06/14/20 20:42 Clonidine HCl (Catapres Tab) 0.1 mg Q4H PRN ORAL sbp>170 05/11/20 17:15 08/09/20 17:14 Docusate Sodium (Colace) 100 mg TWICE A DAY ORAL 06/05/20 09:00 07/05/20 08:59 06/15/20 08:13 Furosemide (Lasix) 40 mg DAILY ORAL 06/09/20 09:00 07/09/20 08:59 06/15/20 08:13 Haloperidol Lactate (Haldol) 5 mg Q6H PRN IM Agitation 05/13/20 20:45 06/27/20 20:44 05/28/20 02:40 Heparin Sodium (Porcine) (Heparin 5000 units/ml) 5,000 units EVERY 12 HOURS SUBQ 05/25/20 21:00 07/09/20 20:59 06/15/20 08:14 Lactulose (Cephulac) 20 gm THREE TIMES A DAY ORAL 06/08/20 18:00 07/08/20 17:59 06/15/20 08:13 Lansoprazole (Prevacid) 30 mg BID ORAL 06/05/20 18:00 07/05/20 17:59 06/15/20 08:13 Levothyroxine Sodium (Synthroid) 50 mcg DAILY@0630 ORAL 06/13/20 06:30 07/13/20 06:29 06/14/20 06:04 Polyethylene Glycol (Miralax) 17 gm BEDTIME ORAL 05/25/20 21:00 06/24/20 20:59 06/13/20 20:40 Quetiapine Fumarate (SEROqueL) 50 mg Q12HR ORAL 06/15/20 09:00 07/24/20 20:59 06/15/20 08:12 Last 24 Hour Vital Signs Date Time Temp Pulse Resp B/P (MAP) Pulse Ox O2 Delivery O2 Flow Rate FiO2 06/15/20 09:00 Room Air 06/15/20 08:00 64 06/15/20 08:00 98.1 74 20 112/37 (62) 96 06/15/20 04:00 70 06/15/20 04:00 96.4 63 18 113/34 (60) 93 06/15/20 00:00 96.5 67 18 119/40 (66) 95 06/15/20 00:00 65 06/14/20 21:00 Room Air 06/14/20 20:00 77 06/14/20 20:00 97.5 71 18 107/33 (57) 97 06/14/20 16:00 68 06/14/20 16:00 97.4 74 18 132/66 (88) 96 06/14/20 12:00 97.2 70 18 107/52 (70) 92 06/14/20 12:00 68 06/14/20 09:00 Room Air 06/14/20 08:00 75 06/14/20 08:00 97.1 72 18 141/52 (81) 97 06/14/20 04:00 69 06/14/20 04:00 98.1 65 20 145/39 (74) 98 06/14/20 00:00 97.0 62 18 147/41 (76) 94 06/14/20 00:00 60 06/13/20 21:00 Room Air 06/13/20 20:00 97.8 69 18 142/51 (81) 97 06/13/20 20:00 65 06/13/20 16:00 97.2 65 18 117/40 (65) 96 06/13/20 16:00 73 Intake and Output 06/14/20 06/15/20 19:00 07:00 Intake Total 480 ml 360 ml Balance 480 ml 360 ml Intake Oral 480 ml 360 ml # Voids 3 1 Labs Test 06/14/20 04:00 06/15/20 09:20 White Blood Count 6.1 K/UL (4.8-10.8) 6.5 K/UL (4.8-10.8) Red Blood Count 2.53 M/UL (4.20-5.40) 2.75 M/UL (4.20-5.40) Hemoglobin 8.3 G/DL (12.0-16.0) 9.2 G/DL (12.0-16.0) Hematocrit 25.2 % (37.0-47.0) 26.9 % (37.0-47.0) Mean Corpuscular Volume 100 FL (80-99) 98 FL (80-99) Mean Corpuscular Hemoglobin 33.0 PG (27.0-31.0) 33.5 PG (27.0-31.0) Mean Corpuscular Hemoglobin Concent 33.1 G/DL (32.0-36.0) 34.3 G/DL (32.0-36.0) Red Cell Distribution Width 17.2 % (11.6-14.8) 18.1 % (11.6-14.8) Platelet Count 248 K/UL (150-450) 290 K/UL (150-450) Mean Platelet Volume 6.2 FL (6.5-10.1) 6.2 FL (6.5-10.1) Neutrophils (%) (Auto) 56.5 % (45.0-75.0) 58.6 % (45.0-75.0) Lymphocytes (%) (Auto) 29.7 % (20.0-45.0) 31.0 % (20.0-45.0) Monocytes (%) (Auto) 9.1 % (1.0-10.0) 6.2 % (1.0-10.0) Eosinophils (%) (Auto) 3.3 % (0.0-3.0) 3.3 % (0.0-3.0) Basophils (%) (Auto) 1.4 % (0.0-2.0) 0.8 % (0.0-2.0) Sodium Level 139 MMOL/L (136-145) Potassium Level 3.3 MMOL/L (3.5-5.1) Chloride Level 103 MMOL/L (98-107) Carbon Dioxide Level 33 MMOL/L (21-32) Anion Gap 3 mmol/L (5-15) Blood Urea Nitrogen 33 mg/dL (7-18) Creatinine 1.1 MG/DL (0.55-1.30) Estimat Glomerular Filtration Rate 47.8 mL/min (>60) Glucose Level 86 MG/DL (74-106) Calcium Level 8.3 MG/DL (8.5-10.1) Phosphorus Level 3.4 MG/DL (2.5-4.9) Magnesium Level 2.0 MG/DL (1.8-2.4) Total Bilirubin 0.6 MG/DL (0.2-1.0) Aspartate Amino Transf (AST/SGOT) 15 U/L (15-37) Alanine Aminotransferase (ALT/SGPT) 7 U/L (12-78) Alkaline Phosphatase 43 U/L (46-116) Total Protein 6.6 G/DL (6.4-8.2) Albumin 2.9 G/DL (3.4-5.0) Globulin 3.7 g/dL Albumin/Globulin Ratio 0.8 (1.0-2.7) Height (Feet): 5 Height (Inches): 3.00 Weight (Pounds): 183 Objective Subjective Subjective HEENT: Denies: no symptoms, eye pain, blurred vision, tearing, double vision, ear pain, ear discharge, nose pain, nose congestion, throat pain, throat swelling, mouth pain, mouth swelling, other Cardiovascular: Denies: no symptoms, chest pain, edema, irregular heart rate, lightheadedness, palpitations, syncope, other Respiratory: Denies: no symptoms, cough, shortness of breath, SOB with excertion, SOB at rest, sputum, wheezing, other Gastrointestinal/Abdominal: Denies: no symptoms, abdomen distended, abdominal pain, black stools, tarry stools, blood in stool, constipated, diarrhea, difficulty swallowing, nausea, poor appetite, poor fluid intake, rectal bleeding, vomiting, other Genitourinary: Denies: no symptoms, burning, discharge, frequency, flank pain, hematuria, incontinence, pain, urgency, other Neurologic/Psychiatric: Denies: no symptoms, anxiety, depressed, emotional problems, headache, numbness, paresthesia, pre-existing deficit, seizure, tingling, tremors, weakness, other Endocrine: Denies: no symptoms, excessive sweating, flushing, intolerance to cold, intolerance to heat, increased hunger, increased thirst, increased urine, unexplained weight gain, unexplained weight loss, other Hematologic/Lymphatic: Denies: no symptoms, anemia, easy bleeding, easy bruising, adenopathy, other Charline Meléndez NP Jun 15, 2020 12:03
--- NOTE | 2020-06-15 13:16 | Nephrology Progress Note ---
Assessment/Plan Problem List: (1) Renal failure (ARF), acute on chronic (2) Hypercapnic respiratory failure (3) CHF exacerbation (4) Anemia Assessment Azotemia/renal failure Acute respiratory failure most likely secondary to CHF, on mechanical ventilation History of COPD Hypertension Hyperlipemia Schizophrenia/psychosis Plan June 15: Labs reviewed. Low potassium addressed. Renal parameters stable. Continue per consultants. June 14: Labs reviewed. Low potassium replaced. Serum creatinine normalized. Continue per consultants. June 13: No labs drawn today. Patient clinically stable. Continue to monitor renal parameters. June 12: Lab reviewed. Renal parameters are stable. Continue per consultants. June 11: Labs reviewed. Low potassium noted and addressed. Continue per consultants. Continue to monitor renal parameters. June 10: No CHEM panel drawn today. Check lab tomorrow. Continue per consultants. On room air oxygen June 09: Labs reviewed. Renal parameters stable. Continue per current treatment plan. June 08: Labs reviewed. Low potassium addressed. Continue per consultants. June 07: Stable renal parameters. Continue per consultants. Overall stable. June 06: Status quo. Remains on Venturi mask. Labs reviewed. Renal parameters stable. Continue per consultants. June 05: Lethargic. On Venturi mask. Labs reviewed. Returning bicarb. Continue to monitor ABG and electrolytes. Low potassium addressed. June 04: Remains on Venturi mask. No can panel done today. ABG results reviewed. Continue per pulmonary. June 03: Poor respiratory status. ABG noted. Patient hypoxic. Renal parameters somewhat stable. Continue per pulmonary. June 02: Labs reviewed. Low phosphorus replaced. Patient has periodic severe bradycardia. Continue per cardiology. June 01: Labs reviewed. Low magnesium replaced. Renal parameters stable. Hemoglobin level reasonable. Continue per consultants. May 31: Labs reviewed. Abnormal electrolytes at rest. Hemoglobin higher. Discussed with DARREL Cooper. Continue per consultants. May 30: Lab reviewed. Potassium and phosphorus replaced. Hemoglobin higher after transfusion. Continue per consultants. May 29: Lab reviewed. Patient anemic. Electrolyte abnormalities reviewed and addressed. Continue per consultants. Remains stable from renal standpoint of view. May 28: Patient was not transfused despite of my order since yesterday. Will defer transfusion to PMD/psych therapist. Patient remains stable from renal standpoint of view. Continue per consultants. Discussed with Marlene nursing charge in [place]. May 27: Remains on Venturi mask. Labs reviewed. Abnormal electrolytes addressed. Hemoglobin low. Will transfuse 1 unit of packed RBCs today May 26: On Venturi mask. Labs reviewed. Abnormal electrolytes addressed. Continue per consultants and pulmonary support. May 25: On Venturi mask. Lethargic. No labs drawn today. Will monitor renal parameters. Per orders. May 24: Remains extubated. Will start on diet with high alert for possible aspiration. Continue to monitor renal parameters. May 23: Continues to be extubated. On nonrebreathing mask. Labs reviewed. Renal parameters stable. Discussed with RN. Continue per current management. May 22: Now extubated on nonrebreathing mask. Labs reviewed. Renal parameters stable. Abnormal electrolytes addressed. Discussed with RN. May 21: Remains intubated. Labs reviewed. Abnormal electrolytes addressed. Discussed with RN. May 20: Remains intubated. Abnormal electrolyte noted on today's lab results and addressed. Continue per consultants. May 19: Patient remains intubated. Labs reviewed. Abnormal electrolytes addressed. Continue per current management. May 18: Patient seen in ICU. Remains intubated. Weaning is being tried. Discussed with RN. Labs reviewed. Abnormal electrolyte addressed. Continue per consultants. May 17: Labs reviewed. Remains intubated. Stable from renal standpoint of view. Continue weaning. Discussed with RN. May 16: Labs reviewed. Remains intubated. Remains full code. Stable from renal standpoint of view. Abnormal electrolytes addressed. May 15: Labs reviewed. Renal parameters stable. Discussed with RN. Patient remains intubated on ventilator and full code. Continue per consultants. May 14: Labs reviewed. Discussed with RN. Abnormal electrolyte addressed. Continue per current management. Patient seen in ICU. Discussed with RN. Today's labs pending. Patient remains on 6 mics of dopamine. Pulmonary support Monitor intake and output Monitor electrolytes Continue per consultants Per orders Subjective ROS Limited/Unobtainable: No Constitutional: Reports: malaise, weakness Objective Objective Last 24 Hour Vital Signs Date Time Temp Pulse Resp B/P (MAP) Pulse Ox O2 Delivery O2 Flow Rate FiO2 06/15/20 12:00 76 06/15/20 12:00 97.6 72 16 107/38 (61) 95 06/15/20 09:00 Room Air 06/15/20 08:00 64 06/15/20 08:00 98.1 74 20 112/37 (62) 96 06/15/20 04:00 70 06/15/20 04:00 96.4 63 18 113/34 (60) 93 06/15/20 00:00 96.5 67 18 119/40 (66) 95 06/15/20 00:00 65 06/14/20 21:00 Room Air 06/14/20 20:00 77 06/14/20 20:00 97.5 71 18 107/33 (57) 97 06/14/20 16:00 68 06/14/20 16:00 97.4 74 18 132/66 (88) 96 Intake and Output 06/14/20 06/15/20 19:00 07:00 Intake Total 480 ml 360 ml Balance 480 ml 360 ml Intake Oral 480 ml 360 ml # Voids 3 1 Laboratory Tests 06/15/20 09:20: White Blood Count 6.5, Red Blood Count 2.75L, Hemoglobin 9.2L, Hematocrit 26.9L, Mean Corpuscular Volume 98, Mean Corpuscular Hemoglobin 33.5H, Mean Corpuscular Hemoglobin Concent 34.3, Red Cell Distribution Width 18.1H, Platelet Count 290, Mean Platelet Volume 6.2L, Neutrophils (%) (Auto) 58.6, Lymphocytes (%) (Auto) 31.0, Monocytes (%) (Auto) 6.2, Eosinophils (%) (Auto) 3.3H, Basophils (%) (Auto) 0.8 Height (Feet): 5 Height (Inches): 3.00 Weight (Pounds): 183 General Appearance: no apparent distress Cardiovascular: normal rate Respiratory/Chest: decreased breath sounds Abdomen: soft Bryan Ochoa MD Jun 15, 2020 13:16
--- NOTE | 2020-06-15 13:21 | Surgery Progress Note ---
Surgery Progress Note Subjective Additional Comments afebrile, HD stable, labs stable comfortable no complaints Objective Last 24 Hour Vital Signs Date Time Temp Pulse Resp B/P (MAP) Pulse Ox O2 Delivery O2 Flow Rate FiO2 06/15/20 12:00 76 06/15/20 12:00 97.6 72 16 107/38 (61) 95 06/15/20 09:00 Room Air 06/15/20 08:00 64 06/15/20 08:00 98.1 74 20 112/37 (62) 96 06/15/20 04:00 70 06/15/20 04:00 96.4 63 18 113/34 (60) 93 06/15/20 00:00 96.5 67 18 119/40 (66) 95 06/15/20 00:00 65 06/14/20 21:00 Room Air 06/14/20 20:00 77 06/14/20 20:00 97.5 71 18 107/33 (57) 97 06/14/20 16:00 68 06/14/20 16:00 97.4 74 18 132/66 (88) 96 I&O Intake and Output 06/14/20 06/15/20 19:00 07:00 Intake Total 480 ml 360 ml Balance 480 ml 360 ml Intake Oral 480 ml 360 ml # Voids 3 1 Cardiovascular: RSR Respiratory: decreased breath sounds Abdomen: non-tender, present bowel sounds Extremities: no edema, no tenderness, no cyanosis Laboratory Tests Test 06/15/20 09:20 White Blood Count 6.5 K/UL (4.8-10.8) Red Blood Count 2.75 M/UL (4.20-5.40) L Hemoglobin 9.2 G/DL (12.0-16.0) L Hematocrit 26.9 % (37.0-47.0) L Mean Corpuscular Volume 98 FL (80-99) Mean Corpuscular Hemoglobin 33.5 PG (27.0-31.0) H Mean Corpuscular Hemoglobin Concent 34.3 G/DL (32.0-36.0) Red Cell Distribution Width 18.1 % (11.6-14.8) H Platelet Count 290 K/UL (150-450) Mean Platelet Volume 6.2 FL (6.5-10.1) L Neutrophils (%) (Auto) 58.6 % (45.0-75.0) Lymphocytes (%) (Auto) 31.0 % (20.0-45.0) Monocytes (%) (Auto) 6.2 % (1.0-10.0) Eosinophils (%) (Auto) 3.3 % (0.0-3.0) H Basophils (%) (Auto) 0.8 % (0.0-2.0) Plan Problems: (1) Anemia (2) Hypercapnic respiratory failure Assessment & Plan: respiratory insufficiency requiring prolonged ventilatory support unable to wean vent safely after multiple attempts discussed with pcp. discussed with pulm discussed with patient guardian. patient unable to consent. no nok or poa. given critical care and condition not recommended to await court decision which during pandemic can take long time. medically necessary to proceed with trach in patients best interest. self extubated will monitor DAILY ESTIMATED NEEDS: Needs based on Critical care, 70kg abw 22-28 kcals/kg 6575-5400 total kcals 1.2-2 g protein/kg 84-140 g total protein 20-25 mL/kg 3473-9594 total fluid mLs NUTRITION DIAGNOSIS: Swallowing difficulty r/t respiratory status as evidenced by pt orally intubated, was pending trach placement, s/p self-extubation on 05/22, now on texture modified diet. CURRENT DIET:REGULAR, puree w/ NTL PO DIET RECOMMENDATIONS: Maintain liberalized REGULAR diet/ texture per CASE WORKER ADDITIONAL RECOMMENDATIONS: 1) Calibrated bed scale wts 2) Rec bowel regimen -> now added 3) Monitor lytes, replete as needed 4) CASE WORKER f/up regarding texture clarification 5) Monitor PO intake and tolerance Ensure Enlive TID w/ meals w/ 3rd Ensure as pm snack to prevent am hypoglycemia (3) COVID-19 Assessment & Plan: ++ improving repeat (4) COPD (chronic obstructive pulmonary disease) (5) Psychosis (6) Renal failure (ARF), acute on chronic (7) CHF exacerbation (8) Hypoxia (9) Hypocalcemia (10) Bradycardia (11) Dyspnea (12) Dyspnea (13) Respiratory distress (14) Hyperlipidemia (15) Hypothyroidism (16) Hypothyroidism (17) Obese (18) Psychosis (19) Respiratory failure (20) Pneumonia (21) Acute and chronic respiratory failure (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
--- NOTE | 2020-06-15 15:02 | General Progress Note ---
Subjective Allergies: Coded Allergies: LITHIUM (Verified Allergy, Unknown, 02/07/19) Subjective above noted awake, smiling eating lunch no abdominal complaints Objective Last 24 Hour Vital Signs Date Time Temp Pulse Resp B/P (MAP) Pulse Ox O2 Delivery O2 Flow Rate FiO2 06/15/20 12:00 76 06/15/20 12:00 97.6 72 16 107/38 (61) 95 06/15/20 09:00 Room Air 06/15/20 08:00 64 06/15/20 08:00 98.1 74 20 112/37 (62) 96 06/15/20 04:00 70 06/15/20 04:00 96.4 63 18 113/34 (60) 93 06/15/20 00:00 96.5 67 18 119/40 (66) 95 06/15/20 00:00 65 06/14/20 21:00 Room Air 06/14/20 20:00 77 06/14/20 20:00 97.5 71 18 107/33 (57) 97 06/14/20 16:00 68 06/14/20 16:00 97.4 74 18 132/66 (88) 96 Intake and Output 06/14/20 06/15/20 19:00 07:00 Intake Total 480 ml 360 ml Balance 480 ml 360 ml Intake Oral 480 ml 360 ml # Voids 3 1 Laboratory Tests 06/15/20 09:20: White Blood Count 6.5, Red Blood Count 2.75L, Hemoglobin 9.2L, Hematocrit 26.9L, Mean Corpuscular Volume 98, Mean Corpuscular Hemoglobin 33.5H, Mean Corpuscular Hemoglobin Concent 34.3, Red Cell Distribution Width 18.1H, Platelet Count 290, Mean Platelet Volume 6.2L, Neutrophils (%) (Auto) 58.6, Lymphocytes (%) (Auto) 31.0, Monocytes (%) (Auto) 6.2, Eosinophils (%) (Auto) 3.3H, Basophils (%) (Auto) 0.8 Height (Feet): 5 Height (Inches): 3.00 Weight (Pounds): 183 Objective WDWN WW NCAT CTA RR abd soft no edema Assessment/Plan Status: progressing, unchanged, deteriorating Assessment/Plan: Assessment/Plan (1) Hypertension (2) Schizophrenia (3) Hyperlipidemia (4) Parkinson disease (5) Anemia (6) Obese (7) COVID (+) (8) Hypoxia (9) arrhythmia Recommendations PPI BID Follow H&H Transfuse to keep Hg>7.0 po as tolerated GI procedures at a later date, if needed bowel regimen possible pacemaker placement Aria Chicas MD Jun 15, 2020 15:01
--- NOTE | 2020-06-15 15:38 | Pulmonology Progress Note ---
Subjective ROS Limited/Unobtainable: No Interval Events: none major reported per nursing Constitutional: Denies: fever HEENT: Repors: no symptoms Respiratory: Reports: no symptoms Cardiovascular: Reports: no symptoms Gastrointestinal/Abdominal: Reports: no symptoms Genitourinary: Reports: no symptoms Allergies: Coded Allergies: LITHIUM (Verified Allergy, Unknown, 02/07/19) Objective Last 24 Hour Vital Signs Date Time Temp Pulse Resp B/P (MAP) Pulse Ox O2 Delivery O2 Flow Rate FiO2 06/15/20 12:00 76 06/15/20 12:00 97.6 72 16 107/38 (61) 95 06/15/20 09:00 Room Air 06/15/20 08:00 64 06/15/20 08:00 98.1 74 20 112/37 (62) 96 06/15/20 04:00 70 06/15/20 04:00 96.4 63 18 113/34 (60) 93 06/15/20 00:00 96.5 67 18 119/40 (66) 95 06/15/20 00:00 65 06/14/20 21:00 Room Air 06/14/20 20:00 77 06/14/20 20:00 97.5 71 18 107/33 (57) 97 06/14/20 16:00 68 06/14/20 16:00 97.4 74 18 132/66 (88) 96 Intake and Output 06/14/20 06/15/20 19:00 07:00 Intake Total 480 ml 360 ml Balance 480 ml 360 ml Intake Oral 480 ml 360 ml # Voids 3 1 Objective 06/15 no change 06/14 on RA; stable respiratory-ortega 06/11 no change 06/10 remains on room air; off isolation now 06/09 seen in tele; now saturating at 93-94% on room air 06/06 no change 06/05 now on 14L Ventimask saturating at high 90s 05/31 on Venturi mask saturating well 05/29/2020 now on 2 lpm NC saturating at 97%; in transfusion 05/28/2020 in SDU; currently on Venturi mask 14L FiO2 14L saturating well 05/27/2020 in SDU; s/p failed attempt at switching to NC due to patient noncompliance; currently saturating low-mid 90s when she is actually on Venturi mask 14L 05/26/2020 in SDU; keeps taking off her NRB and desats to 79-80% 05/24/2020 in ICUD; restless, saturating ok with NC 05/19/2020 Pt in ICU; full code General Appearance: no acute distress HEENT: normocephalic Respiratory: no respiratory distress, decreased breath sounds Cardiovascular: normal rate Abdomen: soft, non tender, other - obese Extremities: other - b/l 2+ pitting edema Neurologic: disoriented Laboratory Tests 06/15/20 09:20: White Blood Count 6.5, Red Blood Count 2.75L, Hemoglobin 9.2L, Hematocrit 26.9L, Mean Corpuscular Volume 98, Mean Corpuscular Hemoglobin 33.5H, Mean Corpuscular Hemoglobin Concent 34.3, Red Cell Distribution Width 18.1H, Platelet Count 290, Mean Platelet Volume 6.2L, Neutrophils (%) (Auto) 58.6, Lymphocytes (%) (Auto) 31.0, Monocytes (%) (Auto) 6.2, Eosinophils (%) (Auto) 3.3H, Basophils (%) (Auto) 0.8 Current Medications Medications (Trade) Dose Ordered Sig/Angie Route PRN Reason Start Time Stop Time Status Last Admin Dose Admin Acetaminophen (Tylenol) 650 mg Q6H PRN NG Fever >100.5 06/12/20 08:00 07/12/20 07:59 Acetaminophen (Tylenol) 650 mg Q6H PRN NG Mild Pain (Pain Scale 1-3) 06/12/20 08:00 07/12/20 07:59 Chlorhexidine Gluconate (Ruba-Hex 2%) 1 applic DAILY@1999 TOPIC 06/12/20 20:00 09/10/20 19:59 06/14/20 20:42 Clonidine HCl (Catapres Tab) 0.1 mg Q4H PRN ORAL sbp>170 05/11/20 17:15 08/09/20 17:14 Docusate Sodium (Colace) 100 mg TWICE A DAY ORAL 06/05/20 09:00 07/05/20 08:59 06/15/20 08:13 Furosemide (Lasix) 40 mg DAILY ORAL 06/09/20 09:00 07/09/20 08:59 06/15/20 08:13 Haloperidol Lactate (Haldol) 5 mg Q6H PRN IM Agitation 05/13/20 20:45 06/27/20 20:44 05/28/20 02:40 Heparin Sodium (Porcine) (Heparin 5000 units/ml) 5,000 units EVERY 12 HOURS SUBQ 05/25/20 21:00 07/09/20 20:59 06/15/20 08:14 Lactulose (Cephulac) 20 gm THREE TIMES A DAY ORAL 06/08/20 18:00 07/08/20 17:59 06/15/20 08:13 Lansoprazole (Prevacid) 30 mg BID ORAL 06/05/20 18:00 07/05/20 17:59 06/15/20 08:13 Levothyroxine Sodium (Synthroid) 50 mcg DAILY@0630 ORAL 06/13/20 06:30 07/13/20 06:29 06/14/20 06:04 Polyethylene Glycol (Miralax) 17 gm BEDTIME ORAL 05/25/20 21:00 06/24/20 20:59 06/13/20 20:40 Quetiapine Fumarate (SEROqueL) 50 mg Q12HR ORAL 06/15/20 09:00 07/24/20 20:59 06/15/20 08:12 Assessment/Plan Assessment/Plan 1. Bilateral COVID-19 multilobar pneumonia. - s/p ETT - Afebrile - s/p Azithromycin, Ceftriaxone, dexamethasone, and remdesivir - CXR 05/31 Patchy bilateral airspace consolidations, consistent with multifocal infiltrate, similar in appearance to previous study from 05/30; Stable, small bilateral pleural effusions. - COVID-19 PCR 06/02 inconclusive result - COVID-19 PCR 06/04 positive - now off isolation - provide supplemental oxygen as needed 2. Hx of COPD. 3. Schizophrenia/psychosis - On haloperidol per Dr. Hernandez 4. Hypoxia. -Now on room air; saturating well - X-ray chest on 06/07 shows significantly improved bilateral pulmonary infiltrates - Now on oral Lasix 40 mg - off Diamox - recommend continued diuresis with ongoing BUN/Cr monitoring 5. Anemia; improved - Stool OB neg 6. SSS - plan for pacer noted; per cardio - Awaiting pacer consent from conservator/court as ID cleared the patient for PPM implant DVT ppx The care for this patient was discussed with my supervising physician Time spent for this case was approximately 31 minutes Trae Avilez Jun 15, 2020 15:38
[2020-06-15 16:00] VITALS: BP 107/35
--- NOTE | 2020-06-15 17:41 | Cardiac Electrophysiology PN ---
Assessment/Plan Assessment/Plan 1. Covid PNA and respiratory failure. S/P Remdesevir and Dexamethasone Self extubated on RA. Off Abx per ID. On Lasix [address] Myers Now off isolation 2. SSS with 8 pauses of more than 3 seconds including 9 and 10 second pauses off any QUEZADA or AVN blockers. Awaiting consent for PPM implant from public Guardian, Mr Mohit Hyatt at [phone] 3. Hypotension. Off Dopamine. EF 55% 4. Schizophrenia and psychosis. 5. S/P MRSA & Klebsiella pneumonia YOSELYN RN and Dr Chan from ID Subjective Subjective Self extubated on 05/22/20 off Covid isolation Had multiple pauses of more than 3 seconds including a 4s and 7s and a 10 second pause at 1 AM on 05/31 Had pauses of 7, 8 and 6 seconds again 06/01/20 On RA. In restraints. Now has RUE PICC line Awaiting consent for PPM implant from public Guardian, Mr Mohit Hyatt at [phone] Objective Last 24 Hour Vital Signs Date Time Temp Pulse Resp B/P (MAP) Pulse Ox O2 Delivery O2 Flow Rate FiO2 06/15/20 16:00 69 06/15/20 16:00 99.0 69 18 107/35 (59) 95 06/15/20 12:00 76 06/15/20 12:00 97.6 72 16 107/38 (61) 95 06/15/20 09:00 Room Air 06/15/20 08:00 64 06/15/20 08:00 98.1 74 20 112/37 (62) 96 06/15/20 07:00 96 Room Air 21 06/15/20 04:00 70 06/15/20 04:00 96.4 63 18 113/34 (60) 93 06/15/20 00:00 96.5 67 18 119/40 (66) 95 06/15/20 00:00 65 06/14/20 21:00 Room Air 06/14/20 20:00 77 06/14/20 20:00 97.5 71 18 107/33 (57) 97 Intake and Output 06/14/20 06/15/20 19:00 07:00 Intake Total 480 ml 360 ml Balance 480 ml 360 ml Intake Oral 480 ml 360 ml # Voids 3 1 Laboratory Tests Test 06/15/20 09:20 White Blood Count 6.5 K/UL (4.8-10.8) Red Blood Count 2.75 M/UL (4.20-5.40) L Hemoglobin 9.2 G/DL (12.0-16.0) L Hematocrit 26.9 % (37.0-47.0) L Mean Corpuscular Volume 98 FL (80-99) Mean Corpuscular Hemoglobin 33.5 PG (27.0-31.0) H Mean Corpuscular Hemoglobin Concent 34.3 G/DL (32.0-36.0) Red Cell Distribution Width 18.1 % (11.6-14.8) H Platelet Count 290 K/UL (150-450) Mean Platelet Volume 6.2 FL (6.5-10.1) L Neutrophils (%) (Auto) 58.6 % (45.0-75.0) Lymphocytes (%) (Auto) 31.0 % (20.0-45.0) Monocytes (%) (Auto) 6.2 % (1.0-10.0) Eosinophils (%) (Auto) 3.3 % (0.0-3.0) H Basophils (%) (Auto) 0.8 % (0.0-2.0) Objective HEAD AND NECK: Positive JVD. LUNGS: Decreased breath sounds. CARDIOVASCULAR: Regular S1 and S2 with no gallop. ABDOMEN: Obese. EXTREMITIES: Bilateral 2+ pitting edema. Cameron Davies MD Jun 15, 2020 17:41
[2020-06-15 20:00] VITALS: BP 105/30
[2020-06-15] MEDS: Miralax 17gm pkt ORAL SCH (20:50)
[2020-06-15] MEDS: Dyna-Hex 2% Top Sol 2oz TOPIC SCH (20:53)
--- NOTE | 2020-06-15 22:32 | General Progress Note ---
Subjective ROS Limited/Unobtainable: Yes Allergies: Coded Allergies: LITHIUM (Verified Allergy, Unknown, 02/07/19) Objective Last 24 Hour Vital Signs Date Time Temp Pulse Resp B/P (MAP) Pulse Ox O2 Delivery O2 Flow Rate FiO2 06/15/20 16:00 69 06/15/20 16:00 99.0 69 18 107/35 (59) 95 06/15/20 12:00 76 06/15/20 12:00 97.6 72 16 107/38 (61) 95 06/15/20 09:00 Room Air 06/15/20 08:00 64 06/15/20 08:00 98.1 74 20 112/37 (62) 96 06/15/20 07:00 96 Room Air 21 06/15/20 04:00 70 06/15/20 04:00 96.4 63 18 113/34 (60) 93 06/15/20 00:00 96.5 67 18 119/40 (66) 95 06/15/20 00:00 65 Intake and Output 06/14/20 06/15/20 19:00 07:00 Intake Total 480 ml 360 ml Balance 480 ml 360 ml Intake Oral 480 ml 360 ml # Voids 3 1 Laboratory Tests 06/15/20 09:20: White Blood Count 6.5, Red Blood Count 2.75L, Hemoglobin 9.2L, Hematocrit 26.9L, Mean Corpuscular Volume 98, Mean Corpuscular Hemoglobin 33.5H, Mean Corpuscular Hemoglobin Concent 34.3, Red Cell Distribution Width 18.1H, Platelet Count 290, Mean Platelet Volume 6.2L, Neutrophils (%) (Auto) 58.6, Lymphocytes (%) (Auto) 31.0, Monocytes (%) (Auto) 6.2, Eosinophils (%) (Auto) 3.3H, Basophils (%) (Auto) 0.8 Height (Feet): 5 Height (Inches): 3.00 Weight (Pounds): 183 Assessment/Plan Problem List: (1) Anemia ICD Codes: D64.9 - Anemia, unspecified SNOMED: 713283752 (2) Hypercapnic respiratory failure ICD Codes: J96.92 - Respiratory failure, unspecified with hypercapnia SNOMED: 404504151 (3) COVID-19 ICD Codes: U07.1 - COVID-19 SNOMED: 342286230 (4) COPD (chronic obstructive pulmonary disease) ICD Codes: J44.9 - Chronic obstructive pulmonary disease, unspecified SNOMED: 49122933 (5) Psychosis ICD Codes: F29 - Unspecified psychosis not due to a substance or known physiological condition SNOMED: 50688963 (6) Hypoxia ICD Codes: R09.02 - Hypoxemia SNOMED: 734876383 (7) Renal failure (ARF), acute on chronic ICD Codes: N17.9 - Acute kidney failure, unspecified; N18.9 - Chronic kidney disease, unspecified SNOMED: 315602601 (8) CHF exacerbation ICD Codes: I50.9 - Heart failure, unspecified SNOMED: 819746496, 23670138986806 Status: progressing, unchanged, deteriorating Assessment/Plan: s/p bradycardia and pause sepsis copd exac chf exac not improving on oxygen Dani Perera MD Jun 15, 2020 22:32
[2020-06-16] VITALS: BP 106/52
[2020-06-16 04:00] VITALS: BP 107/35
--- NOTE | 2020-06-16 06:50 | Hematology/Onc Progress Note ---
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 --> restraints # Dvt ppx heparin sq Appreciate eligibility consultant care and alexei Rn Subjective HEENT: Denies: no symptoms, eye pain, blurred vision, tearing, double vision, ear pain, ear discharge, nose pain, nose congestion, throat pain, throat swelling, mouth pain, mouth swelling, other Cardiovascular: Denies: no symptoms, chest pain, edema, irregular heart rate, lightheadedness, palpitations, syncope, other Respiratory: Denies: no symptoms, cough, shortness of breath, SOB with excertion, SOB at rest, sputum, wheezing, other Gastrointestinal/Abdominal: Denies: no symptoms, abdomen distended, abdominal pain, black stools, tarry stools, blood in stool, constipated, diarrhea, difficulty swallowing, nausea, poor appetite, poor fluid intake, rectal bleeding, vomiting, other Neurologic/Psychiatric: Denies: no symptoms, anxiety, depressed, emotional problems, headache, numbness, paresthesia, pre-existing deficit, seizure, tingling, tremors, weakness, other Endocrine: Denies: no symptoms, excessive sweating, flushing, intolerance to cold, intolerance to heat, increased hunger, increased thirst, increased urine, unexplained weight gain, unexplained weight loss, other Hematologic/Lymphatic: Denies: no symptoms, anemia, easy bleeding, easy bruising, adenopathy, other Allergies: Coded Allergies: LITHIUM (Verified Allergy, Unknown, 02/07/19) Subjective 06/01 nonrebreather, 15L, some mild pain in back, chest, no night sweats 06/02 remains on nonrebreather, labs are noted, no bleeding or night sweats 06/03 labs reviewed, meds noted, nonrebreather, c02 was elevated, to inform pulm 06/04 labs reviewed, meds noted, on NR, no night sweats, meds noted 06/05 is on 15lnc venturi mask, is covid iso, labs noted 06/06 labs reviewed, on venturi mask, on b/l soft wrists, meds noted 06/08 labs reviewed, on nc, no bleeding, with picc line, cbc ordered 06/09 labs reviewed, confused, on 3l nc, no night sweats, meds reviewed 06/10 is off restraints, left picc has been removed, no new changes 06/11 remains confused, is to have picc placed, per public guardian 06/12 wrist restraints, very agitated overnight, noncompliant, labs reviewed 06/13 labs noted, no bleedig, hgb remains low, cbc is pending 1: labs reviewed, on restraints, 02 no resp distress 06/15: no acute distress afebrile. hgb 9.2 06/16 labs reviewed, meds noted, no hemolysis, no bleeding Objective Objective Current Medications Medications (Trade) Dose Ordered Sig/Angie Route PRN Reason Start Time Stop Time Status Last Admin Dose Admin Acetaminophen (Tylenol) 650 mg Q6H PRN NG Fever >100.5 06/12/20 08:00 07/12/20 07:59 Acetaminophen (Tylenol) 650 mg Q6H PRN NG Mild Pain (Pain Scale 1-3) 06/12/20 08:00 07/12/20 07:59 Chlorhexidine Gluconate (Ruba-Hex 2%) 1 applic DAILY@2000 TOPIC 06/12/20 20:00 09/10/20 19:59 06/15/20 20:53 Clonidine HCl (Catapres Tab) 0.1 mg Q4H PRN ORAL sbp>170 05/11/20 17:15 08/09/20 17:14 Docusate Sodium (Colace) 100 mg TWICE A DAY ORAL 06/05/20 09:00 07/05/20 08:59 06/15/20 08:13 Furosemide (Lasix) 40 mg DAILY ORAL 06/09/20 09:00 07/09/20 08:59 06/15/20 08:13 Haloperidol Lactate (Haldol) 5 mg Q6H PRN IM Agitation 05/13/20 20:45 06/27/20 20:44 05/28/20 02:40 Heparin Sodium (Porcine) (Heparin 5000 units/ml) 5,000 units EVERY 12 HOURS SUBQ 05/25/20 21:00 07/09/20 20:59 06/15/20 20:54 Lactulose (Cephulac) 20 gm THREE TIMES A DAY ORAL 06/08/20 18:00 07/08/20 17:59 06/15/20 08:13 Lansoprazole (Prevacid) 30 mg BID ORAL 06/05/20 18:00 07/05/20 17:59 06/15/20 08:13 Levothyroxine Sodium (Synthroid) 50 mcg DAILY@0630 ORAL 06/13/20 06:30 07/13/20 06:29 06/14/20 06:04 Polyethylene Glycol (Miralax) 17 gm BEDTIME ORAL 05/25/20 21:00 06/24/20 20:59 06/13/20 20:40 Quetiapine Fumarate (SEROqueL) 50 mg Q12HR ORAL 06/15/20 09:00 07/24/20 20:59 06/15/20 08:12 Last 24 Hour Vital Signs Date Time Temp Pulse Resp B/P (MAP) Pulse Ox O2 Delivery O2 Flow Rate FiO2 06/16/20 04:00 97.5 65 20 107/35 (59) 94 06/16/20 04:00 68 06/16/20 03:07 68 06/16/20 00:00 97.5 88 20 106/52 (70) 95 06/16/20 00:00 68 06/15/20 21:00 Room Air 06/15/20 20:00 72 06/15/20 20:00 97.5 70 18 105/30 (55) 96 06/15/20 19:00 96 Room Air 21 06/15/20 16:00 69 06/15/20 16:00 99.0 69 18 107/35 (59) 95 06/15/20 12:00 76 06/15/20 12:00 97.6 72 16 107/38 (61) 95 06/15/20 09:00 Room Air 06/15/20 08:00 64 06/15/20 08:00 98.1 74 20 112/37 (62) 96 06/15/20 07:00 96 Room Air 06/15/20 04:00 70 06/15/20 04:00 96.4 63 18 113/34 (60) 93 06/15/20 00:00 96.5 67 18 119/40 (66) 95 06/15/20 00:00 65 06/14/20 21:00 Room Air 06/14/20 20:00 77 06/14/20 20:00 97.5 71 18 107/33 (57) 97 06/14/20 16:00 68 06/14/20 16:00 97.4 74 18 132/66 (88) 96 06/14/20 12:00 97.2 70 18 107/52 (70) 92 06/14/20 12:00 68 06/14/20 09:00 Room Air 06/14/20 08:00 75 06/14/20 08:00 97.1 72 18 141/52 (81) 97 Intake and Output 06/15/20 06/16/20 19:00 07:00 Intake Total 480 ml 360 ml Balance 480 ml 360 ml Intake Oral 480 ml 360 ml # Voids 2 2 Labs Test 06/14/20 04:00 06/15/20 09:20 White Blood Count 6.1 K/UL (4.8-10.8) 6.5 K/UL (4.8-10.8) Red Blood Count 2.53 M/UL (4.20-5.40) 2.75 M/UL (4.20-5.40) Hemoglobin 8.3 G/DL (12.0-16.0) 9.2 G/DL (12.0-16.0) Hematocrit 25.2 % (37.0-47.0) 26.9 % (37.0-47.0) Mean Corpuscular Volume 100 FL (80-99) 98 FL (80-99) Mean Corpuscular Hemoglobin 33.0 PG (27.0-31.0) 33.5 PG (27.0-31.0) Mean Corpuscular Hemoglobin Concent 33.1 G/DL (32.0-36.0) 34.3 G/DL (32.0-36.0) Red Cell Distribution Width 17.2 % (11.6-14.8) 18.1 % (11.6-14.8) Platelet Count 248 K/UL (150-450) 290 K/UL (150-450) Mean Platelet Volume 6.2 FL (6.5-10.1) 6.2 FL (6.5-10.1) Neutrophils (%) (Auto) 56.5 % (45.0-75.0) 58.6 % (45.0-75.0) Lymphocytes (%) (Auto) 29.7 % (20.0-45.0) 31.0 % (20.0-45.0) Monocytes (%) (Auto) 9.1 % (1.0-10.0) 6.2 % (1.0-10.0) Eosinophils (%) (Auto) 3.3 % (0.0-3.0) 3.3 % (0.0-3.0) Basophils (%) (Auto) 1.4 % (0.0-2.0) 0.8 % (0.0-2.0) Sodium Level 139 MMOL/L (136-145) Potassium Level 3.3 MMOL/L (3.5-5.1) Chloride Level 103 MMOL/L (98-107) Carbon Dioxide Level 33 MMOL/L (21-32) Anion Gap 3 mmol/L (5-15) Blood Urea Nitrogen 33 mg/dL (7-18) Creatinine 1.1 MG/DL (0.55-1.30) Estimat Glomerular Filtration Rate 47.8 mL/min (>60) Glucose Level 86 MG/DL (74-106) Calcium Level 8.3 MG/DL (8.5-10.1) Phosphorus Level 3.4 MG/DL (2.5-4.9) Magnesium Level 2.0 MG/DL (1.8-2.4) Total Bilirubin 0.6 MG/DL (0.2-1.0) Aspartate Amino Transf (AST/SGOT) 15 U/L (15-37) Alanine Aminotransferase (ALT/SGPT) 7 U/L (12-78) Alkaline Phosphatase 43 U/L (46-116) Total Protein 6.6 G/DL (6.4-8.2) Albumin 2.9 G/DL (3.4-5.0) Globulin 3.7 g/dL Albumin/Globulin Ratio 0.8 (1.0-2.7) Height (Feet): 5 Height (Inches): 3.00 Weight (Pounds): 183 Objective Physical Exam: Vitals: reviewed General: NAD HEENT: nc, at Neck: supple Chest: decreased breath sounds bilaterally, crackles+++ 15L NRM Cardiovascular: RRR, no s3, s4 Abdomen: soft, nontender, nd Extremities: 1-2 + edema Neuro: nonverbal Frank Escobar MD Jun 16, 2020 06:50
[2020-06-16 08:00] VITALS: BP 102/40
[2020-06-16] MEDS: Lactulose 20gm/30ml UDC ORAL SCH ×3 (09:40→18:00)
[2020-06-16] MEDS: Docusate 100mg/10ml Liq ORAL SCH ×2 (09:40→18:00)
[2020-06-16] MEDS: Furosemide 40mg tab ORAL SCH (09:40)
[2020-06-16] MEDS: Heparin 5000 units/ml inj SUBQ SCH ×2 (09:45→22:08)
--- NOTE | 2020-06-16 10:24 | Pulmonology Progress Note ---
Subjective ROS Limited/Unobtainable: Yes Interval Events: none major reported per nursing Constitutional: Denies: fever HEENT: Repors: no symptoms Respiratory: Reports: no symptoms Cardiovascular: Reports: no symptoms Gastrointestinal/Abdominal: Reports: no symptoms Genitourinary: Reports: no symptoms Allergies: Coded Allergies: LITHIUM (Verified Allergy, Unknown, 02/07/19) Objective Last 24 Hour Vital Signs Date Time Temp Pulse Resp B/P (MAP) Pulse Ox O2 Delivery O2 Flow Rate FiO2 06/16/20 08:00 Room Air 06/16/20 08:00 97.0 69 18 102/40 (60) 95 06/16/20 04:00 97.5 65 20 107/35 (59) 94 06/16/20 04:00 68 06/16/20 03:07 68 06/16/20 00:00 97.5 88 20 106/52 (70) 95 06/16/20 00:00 68 06/15/20 21:00 Room Air 06/15/20 20:00 72 06/15/20 20:00 97.5 70 18 105/30 (55) 96 06/15/20 19:00 96 Room Air 21 06/15/20 16:00 69 06/15/20 16:00 99.0 69 18 107/35 (59) 95 06/15/20 12:00 76 06/15/20 12:00 97.6 72 16 107/38 (61) 95 Intake and Output 06/15/20 06/16/20 19:00 07:00 Intake Total 480 ml 360 ml Balance 480 ml 360 ml Intake Oral 480 ml 360 ml # Voids 2 2 Objective 06/16 no change respiratory-ortega 06/15 no change 06/14 on RA; stable respiratory-ortega 06/11 no change 06/10 remains on room air; off isolation now 06/09 seen in tele; now saturating at 93-94% on room air 06/06 no change 06/05 now on 14L Ventimask saturating at high 90s 05/31 on Venturi mask saturating well 05/29/2020 now on 2 lpm NC saturating at 97%; in transfusion 05/28/2020 in SDU; currently on Venturi mask 14L FiO2 14L saturating well 05/27/2020 in SDU; s/p failed attempt at switching to NC due to patient noncompliance; currently saturating low-mid 90s when she is actually on Venturi mask 14L 05/26/2020 in SDU; keeps taking off her NRB and desats to 79-80% 05/24/2020 in ICUD; restless, saturating ok with NC 05/19/2020 Pt in ICU; full code General Appearance: no acute distress HEENT: normocephalic Respiratory: no respiratory distress, decreased breath sounds Cardiovascular: normal rate Abdomen: soft, non tender, other - obese Extremities: other - b/l 2+ pitting edema Neurologic: disoriented Current Medications Medications (Trade) Dose Ordered Sig/Angie Route PRN Reason Start Time Stop Time Status Last Admin Dose Admin Acetaminophen (Tylenol) 650 mg Q6H PRN NG Fever >100.5 06/12/20 08:00 07/12/20 07:59 Acetaminophen (Tylenol) 650 mg Q6H PRN NG Mild Pain (Pain Scale 1-3) 06/12/20 08:00 07/12/20 07:59 Chlorhexidine Gluconate (Ruba-Hex 2%) 1 applic DAILY@1999 TOPIC 06/12/20 20:00 09/10/20 19:59 06/15/20 20:53 Clonidine HCl (Catapres Tab) 0.1 mg Q4H PRN ORAL sbp>170 05/11/20 17:15 08/09/20 17:14 Docusate Sodium (Colace) 100 mg TWICE A DAY ORAL 06/05/20 09:00 07/05/20 08:59 06/16/20 09:40 Furosemide (Lasix) 40 mg DAILY ORAL 06/09/20 09:00 07/09/20 08:59 06/16/20 09:40 Haloperidol Lactate (Haldol) 5 mg Q6H PRN IM Agitation 05/13/20 20:45 06/27/20 20:44 05/28/20 02:40 Heparin Sodium (Porcine) (Heparin 5000 units/ml) 5,000 units EVERY 12 HOURS SUBQ 05/25/20 21:00 07/09/20 20:59 06/16/20 09:45 Lactulose (Cephulac) 20 gm THREE TIMES A DAY ORAL 06/08/20 18:00 07/08/20 17:59 06/16/20 09:40 Lansoprazole (Prevacid) 30 mg BID ORAL 06/05/20 18:00 07/05/20 17:59 06/16/20 09:40 Levothyroxine Sodium (Synthroid) 50 mcg DAILY@0630 ORAL 06/13/20 06:30 07/13/20 06:29 06/14/20 06:04 Polyethylene Glycol (Miralax) 17 gm BEDTIME ORAL 05/25/20 21:00 06/24/20 20:59 06/13/20 20:40 Quetiapine Fumarate (SEROqueL) 50 mg Q12HR ORAL 06/15/20 09:00 07/24/20 20:59 06/16/20 09:40 Assessment/Plan Assessment/Plan 1. Bilateral COVID-19 multilobar pneumonia. - s/p ETT - Afebrile - s/p Azithromycin, Ceftriaxone, dexamethasone, and remdesivir - CXR 05/31 Patchy bilateral airspace consolidations, consistent with multifocal infiltrate, similar in appearance to previous study from 05/30; Stable, small bilateral pleural effusions. - COVID-19 PCR 06/02 inconclusive result - COVID-19 PCR 06/04 positive - now off isolation - provide supplemental oxygen as needed 2. Hx of COPD. 3. Schizophrenia/psychosis - On haloperidol per Dr. Hernandez 4. Hypoxia. -Now on room air; saturating well - X-ray chest on 06/07 shows significantly improved bilateral pulmonary infiltrates - Now on oral Lasix 40 mg - off Diamox - recommend continued diuresis with ongoing BUN/Cr monitoring 5. Anemia; improved - Stool OB neg 6. SSS - plan for pacer noted; per cardio - Awaiting pacer consent from conservator/court as ID cleared the patient for PPM implant DVT ppx The care for this patient was discussed with my supervising physician Time spent for this case was approximately 31 minutes Trae Avilez Jun 16, 2020 10:24
[2020-06-16 10:46] LABS: BASOPHILS % (AUTO) 1.4 % (0.0-2.0); EOSINOPHILS % (AUTO) 2.7 % (0.0-3.0); HEMATOCRIT 27.5 % (37.0-47.0); HEMOGLOBIN 9.2 G/DL (12.0-16.0); LYMPHOCYTES % (AUTO) 31.3 % (20.0-45.0); MEAN CORPUSCULAR VOLUME 99 FL (80-99); NEUTROPHILS % (AUTO) 58.5 % (45.0-75.0); PLATELET COUNT 286 K/UL (150-450); RED BLOOD COUNT 2.78 M/UL (4.20-5.40); RED CELL DISTRIBUTION WIDTH 17.8 % (11.6-14.8); WHITE BLOOD COUNT 6.1 K/UL (4.8-10.8)
[2020-06-16 12:00] VITALS: BP 99/69
--- NOTE | 2020-06-16 13:05 | Surgery Progress Note ---
Surgery Progress Note Subjective Additional Comments no bleeding no abd pain today no n/v respiratory stable Objective Last 24 Hour Vital Signs Date Time Temp Pulse Resp B/P (MAP) Pulse Ox O2 Delivery O2 Flow Rate FiO2 06/16/20 08:00 Room Air 06/16/20 08:00 97.0 69 18 102/40 (60) 95 06/16/20 08:00 68 06/16/20 04:00 97.5 65 20 107/35 (59) 94 06/16/20 04:00 68 06/16/20 03:07 68 06/16/20 00:00 97.5 88 20 106/52 (70) 95 06/16/20 00:00 68 06/15/20 21:00 Room Air 06/15/20 20:00 72 06/15/20 20:00 97.5 70 18 105/30 (55) 96 06/15/20 19:00 96 Room Air 21 06/15/20 16:00 69 06/15/20 16:00 99.0 69 18 107/35 (59) 95 I&O Intake and Output 06/15/20 06/16/20 19:00 07:00 Intake Total 480 ml 360 ml Balance 480 ml 360 ml Intake Oral 480 ml 360 ml # Voids 2 2 Dressing: saturated Cardiovascular: RSR Respiratory: decreased breath sounds Abdomen: soft, non-tender, present bowel sounds, non-distended Extremities: no tenderness, no cyanosis Laboratory Tests Test 06/16/20 10:25 White Blood Count 6.1 K/UL (4.8-10.8) Red Blood Count 2.78 M/UL (4.20-5.40) L Hemoglobin 9.2 G/DL (12.0-16.0) L Hematocrit 27.5 % (37.0-47.0) L Mean Corpuscular Volume 99 FL (80-99) Mean Corpuscular Hemoglobin 33.1 PG (27.0-31.0) H Mean Corpuscular Hemoglobin Concent 33.5 G/DL (32.0-36.0) Red Cell Distribution Width 17.8 % (11.6-14.8) H Platelet Count 286 K/UL (150-450) Mean Platelet Volume 6.0 FL (6.5-10.1) L Neutrophils (%) (Auto) 58.5 % (45.0-75.0) Lymphocytes (%) (Auto) 31.3 % (20.0-45.0) Monocytes (%) (Auto) 6.0 % (1.0-10.0) Eosinophils (%) (Auto) 2.7 % (0.0-3.0) Basophils (%) (Auto) 1.4 % (0.0-2.0) Plan Problems: (1) Anemia (2) Hypercapnic respiratory failure Assessment & Plan: respiratory insufficiency requiring prolonged ventilatory support unable to wean vent safely after multiple attempts discussed with pcp. discussed with pulm discussed with patient guardian. patient unable to consent. no nok or poa. given critical care and condition not recommended to await court decision which during pandemic can take long time. medically necessary to proceed with trach in patients best interest. self extubated will monitor DAILY ESTIMATED NEEDS: Needs based on Critical care, 70kg abw 22-28 kcals/kg [id number] total kcals 1.2-2 g protein/kg 84-140 g total protein 20-25 mL/kg [id number] total fluid mLs NUTRITION DIAGNOSIS: Swallowing difficulty r/t respiratory status as evidenced by pt orally intubated, was pending trach placement, s/p self-extubation on 05/22, now on texture modified diet. CURRENT DIET:REGULAR, puree w/ NTL PO DIET RECOMMENDATIONS: Maintain liberalized REGULAR diet/ texture per MEDICAL LIAISON ADDITIONAL RECOMMENDATIONS: 1) Calibrated bed scale wts 2) Rec bowel regimen -> now added 3) Monitor lytes, replete as needed 4) MEDICAL LIAISON f/up regarding texture clarification 5) Monitor PO intake and tolerance Ensure Enlive TID w/ meals w/ 3rd Ensure as pm snack to prevent am hypoglycemia (3) COVID-19 Assessment & Plan: ++ improving repeat (4) COPD (chronic obstructive pulmonary disease) (5) Psychosis (6) Renal failure (ARF), acute on chronic (7) CHF exacerbation (8) Hypoxia (9) Hypocalcemia (10) Bradycardia (11) Dyspnea (12) Dyspnea (13) Respiratory distress (14) Hyperlipidemia (15) Hypothyroidism (16) Hypothyroidism (17) Obese (18) Psychosis (19) Respiratory failure (20) Pneumonia (21) Acute and chronic respiratory failure (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
--- NOTE | 2020-06-16 13:14 | Nephrology Progress Note ---
Assessment/Plan Problem List: (1) Renal failure (ARF), acute on chronic (2) Hypercapnic respiratory failure (3) CHF exacerbation (4) Anemia Assessment Azotemia/renal failure Acute respiratory failure most likely secondary to CHF, on mechanical ventilation History of COPD Hypertension Hyperlipemia Schizophrenia/psychosis Plan June 16: No CHEM panel drawn today. Will check it tomorrow. Continue per consultants. Patient full code. June 15: Labs reviewed. Low potassium addressed. Renal parameters stable. Continue per consultants. June 14: Labs reviewed. Low potassium replaced. Serum creatinine normalized. Continue per consultants. June 13: No labs drawn today. Patient clinically stable. Continue to monitor renal parameters. June 12: Lab reviewed. Renal parameters are stable. Continue per consultants. June 11: Labs reviewed. Low potassium noted and addressed. Continue per consultants. Continue to monitor renal parameters. June 10: No CHEM panel drawn today. Check lab tomorrow. Continue per consultants. On room air oxygen June 09: Labs reviewed. Renal parameters stable. Continue per current treatment plan. June 08: Labs reviewed. Low potassium addressed. Continue per consultants. June 07: Stable renal parameters. Continue per consultants. Overall stable. June 06: Status quo. Remains on Venturi mask. Labs reviewed. Renal parameters stable. Continue per consultants. June 05: Lethargic. On Venturi mask. Labs reviewed. Returning bicarb. Continue to monitor ABG and electrolytes. Low potassium addressed. June 04: Remains on Venturi mask. No can panel done today. ABG results reviewed. Continue per pulmonary. June 03: Poor respiratory status. ABG noted. Patient hypoxic. Renal parameters somewhat stable. Continue per pulmonary. June 02: Labs reviewed. Low phosphorus replaced. Patient has periodic severe bradycardia. Continue per cardiology. June 01: Labs reviewed. Low magnesium replaced. Renal parameters stable. Hemoglobin level reasonable. Continue per consultants. May 31: Labs reviewed. Abnormal electrolytes at rest. Hemoglobin higher. Discussed with DARREL Cooper. Continue per consultants. May 30: Lab reviewed. Potassium and phosphorus replaced. Hemoglobin higher after transfusion. Continue per consultants. May 29: Lab reviewed. Patient anemic. Electrolyte abnormalities reviewed and addressed. Continue per consultants. Remains stable from renal standpoint of view. May 28: Patient was not transfused despite of my order since yesterday. Will defer transfusion to PMD/rod straightener. Patient remains stable from renal standpoint of view. Continue per consultants. Discussed with Marlene nursing charge in [place]. May 27: Remains on Venturi mask. Labs reviewed. Abnormal electrolytes addressed. Hemoglobin low. Will transfuse 1 unit of packed RBCs today May 26: On Venturi mask. Labs reviewed. Abnormal electrolytes addressed. Continue per consultants and pulmonary support. May 25: On Venturi mask. Lethargic. No labs drawn today. Will monitor renal parameters. Per orders. May 24: Remains extubated. Will start on diet with high alert for possible aspiration. Continue to monitor renal parameters. May 23: Continues to be extubated. On nonrebreathing mask. Labs reviewed. Renal parameters stable. Discussed with RN. Continue per current management. May 22: Now extubated on nonrebreathing mask. Labs reviewed. Renal parameters stable. Abnormal electrolytes addressed. Discussed with RN. May 21: Remains intubated. Labs reviewed. Abnormal electrolytes addressed. Discussed with RN. May 20: Remains intubated. Abnormal electrolyte noted on today's lab results and addressed. Continue per consultants. May 19: Patient remains intubated. Labs reviewed. Abnormal electrolytes addressed. Continue per current management. May 18: Patient seen in ICU. Remains intubated. Weaning is being tried. Discussed with RN. Labs reviewed. Abnormal electrolyte addressed. Continue per consultants. May 17: Labs reviewed. Remains intubated. Stable from renal standpoint of view. Continue weaning. Discussed with RN. May 16: Labs reviewed. Remains intubated. Remains full code. Stable from renal standpoint of view. Abnormal electrolytes addressed. May 15: Labs reviewed. Renal parameters stable. Discussed with RN. Patient remains intubated on ventilator and full code. Continue per c onsultants. May 14: Labs reviewed. Discussed with RN. Abnormal electrolyte addressed. Continue per current management. Patient seen in ICU. Discussed with RN. Today's labs pending. Patient remains on 6 mics of dopamine. Pulmonary support Monitor intake and output Monitor electrolytes Continue per consultants Per orders Subjective ROS Limited/Unobtainable: No Constitutional: Reports: malaise, weakness Objective Objective Last 24 Hour Vital Signs Date Time Temp Pulse Resp B/P (MAP) Pulse Ox O2 Delivery O2 Flow Rate FiO2 06/16/20 08:00 Room Air 06/16/20 08:00 97.0 69 18 102/40 (60) 95 06/16/20 08:00 68 06/16/20 04:00 97.5 65 20 107/35 (59) 94 06/16/20 04:00 68 06/16/20 03:07 68 06/16/20 00:00 97.5 88 20 106/52 (70) 95 06/16/20 00:00 68 06/15/20 21:00 Room Air 06/15/20 20:00 72 06/15/20 20:00 97.5 70 18 105/30 (55) 96 06/15/20 19:00 96 Room Air 21 06/15/20 16:00 69 06/15/20 16:00 99.0 69 18 107/35 (59) 95 Intake and Output 06/15/20 06/16/20 19:00 07:00 Intake Total 480 ml 360 ml Balance 480 ml 360 ml Intake Oral 480 ml 360 ml # Voids 2 2 Laboratory Tests 06/16/20 10:25: White Blood Count 6.1, Red Blood Count 2.78L, Hemoglobin 9.2L, Hematocrit 27.5L, Mean Corpuscular Volume 99, Mean Corpuscular Hemoglobin 33.1H, Mean Corpuscular Hemoglobin Concent 33.5, Red Cell Distribution Width 17.8H, Platelet Count 286, Mean Platelet Volume 6.0L, Neutrophils (%) (Auto) 58.5, Lymphocytes (%) (Auto) 31.3, Monocytes (%) (Auto) 6.0, Eosinophils (%) (Auto) 2.7, Basophils (%) (Auto) 1.4 Height (Feet): 5 Height (Inches): 3.00 Weight (Pounds): 183 General Appearance: no apparent distress, lethargic Cardiovascular: normal rate Respiratory/Chest: decreased breath sounds Abdomen: soft Bryan Ochoa MD Jun 16, 2020 13:14
--- NOTE | 2020-06-16 15:25 | Cardiac Electrophysiology PN ---
Assessment/Plan Assessment/Plan 1. Covid PNA and respiratory failure. S/P Remdesevir and Dexamethasone Self extubated on RA. Off Abx per ID. On Lasix [address] Myers Now off isolation 2. SSS with 8 pauses of more than 3 seconds including 9 and 10 second pauses off any QUEZADA or AVN blockers. Awaiting consent for PPM implant from public Guardian, Mr Mohit Hyatt at [phone] 3. Hypotension. Off Dopamine. EF 55% 4. Schizophrenia and psychosis. 5. S/P MRSA & Klebsiella pneumonia DW RN Subjective Subjective Self extubated on 05/22/20 off Covid isolation. Had multiple pauses of more than 3 seconds including a 4s and 7s and a 10 second pause at 1 AM on 05/31 Had pauses of 7, 8 and 6 seconds again 06/01/20 On RA in restraints. Now has RUE PICC line Awaiting consent for PPM implant from public Guardian, Mr Mohit Hyatt at [phone] Objective Last 24 Hour Vital Signs Date Time Temp Pulse Resp B/P (MAP) Pulse Ox O2 Delivery O2 Flow Rate FiO2 06/16/20 12:00 65 06/16/20 12:00 97.2 72 20 99/69 (79) 96 06/16/20 08:00 Room Air 06/16/20 08:00 97.0 69 18 102/40 (60) 95 06/16/20 08:00 68 06/16/20 04:00 97.5 65 20 107/35 (59) 94 06/16/20 04:00 68 06/16/20 03:07 68 06/16/20 00:00 97.5 88 20 106/52 (70) 95 06/16/20 00:00 68 06/15/20 21:00 Room Air 06/15/20 20:00 72 06/15/20 20:00 97.5 70 18 105/30 (55) 96 06/15/20 19:00 96 Room Air 21 06/15/20 16:00 69 06/15/20 16:00 99.0 69 18 107/35 (59) 95 Intake and Output 06/15/20 06/16/20 19:00 07:00 Intake Total 480 ml 360 ml Balance 480 ml 360 ml Intake Oral 480 ml 360 ml # Voids 2 2 Laboratory Tests Test 06/16/20 10:25 White Blood Count 6.1 K/UL (4.8-10.8) Red Blood Count 2.78 M/UL (4.20-5.40) L Hemoglobin 9.2 G/DL (12.0-16.0) L Hematocrit 27.5 % (37.0-47.0) L Mean Corpuscular Volume 99 FL (80-99) Mean Corpuscular Hemoglobin 33.1 PG (27.0-31.0) H Mean Corpuscular Hemoglobin Concent 33.5 G/DL (32.0-36.0) Red Cell Distribution Width 17.8 % (11.6-14.8) H Platelet Count 286 K/UL (150-450) Mean Platelet Volume 6.0 FL (6.5-10.1) L Neutrophils (%) (Auto) 58.5 % (45.0-75.0) Lymphocytes (%) (Auto) 31.3 % (20.0-45.0) Monocytes (%) (Auto) 6.0 % (1.0-10.0) Eosinophils (%) (Auto) 2.7 % (0.0-3.0) Basophils (%) (Auto) 1.4 % (0.0-2.0) Objective HEAD AND NECK: Positive JVD. LUNGS: Decreased breath sounds. CARDIOVASCULAR: Regular S1 and S2 with no gallop. ABDOMEN: Obese. EXTREMITIES: Bilateral 2+ pitting edema. Cameron Davies MD Jun 16, 2020 15:25
[2020-06-16 16:00] VITALS: BP 101/42
--- NOTE | 2020-06-16 17:01 | Infectious Diseases Prog Note ---
Assessment/Plan Assessment/Plan IMPRESSION: COVID-19 disease, Acute respiratory failure, COPD, Diastolic CHF, Mitral valve regurgitation, Anemia, Parkinson disease, schizoaffective disorder, Dementia, Obstructive sleep apnea, Hypothyroidism. 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 SSS with pause RECOMMENDATION: Finished dexamethasone & Remdesivir course Observe off of antibiotic Waiting for pacemaker placement Subjective ROS Limited/Unobtainable: Yes Neurologic: Reports: confusion, other - on restraint Allergies: Coded Allergies: LITHIUM (Verified Allergy, Unknown, 02/07/19) Objective Last 24 Hour Vital Signs Date Time Temp Pulse Resp B/P (MAP) Pulse Ox O2 Delivery O2 Flow Rate FiO2 06/16/20 12:00 65 06/16/20 12:00 97.2 72 20 99/69 (79) 96 06/16/20 08:00 Room Air 06/16/20 08:00 97.0 69 18 102/40 (60) 95 06/16/20 08:00 68 06/16/20 04:00 97.5 65 20 107/35 (59) 94 06/16/20 04:00 68 06/16/20 03:07 68 06/16/20 00:00 97.5 88 20 106/52 (70) 95 06/16/20 00:00 68 06/15/20 21:00 Room Air 06/15/20 20:00 72 06/15/20 20:00 97.5 70 18 105/30 (55) 96 06/15/20 19:00 96 Room Air 21 Height (Feet): 5 Height (Inches): 3.00 Weight (Pounds): 183 HEENT: mucous membranes moist Respiratory/Chest: lungs clear Cardiovascular: normal rate Abdomen: soft, non tender Extremities: no edema Neurologic/Psychiatric: alert, disoriented Laboratory Tests Test 06/16/20 10:25 White Blood Count 6.1 K/UL (4.8-10.8) Red Blood Count 2.78 M/UL (4.20-5.40) L Hemoglobin 9.2 G/DL (12.0-16.0) L Hematocrit 27.5 % (37.0-47.0) L Mean Corpuscular Volume 99 FL (80-99) Mean Corpuscular Hemoglobin 33.1 PG (27.0-31.0) H Mean Corpuscular Hemoglobin Concent 33.5 G/DL (32.0-36.0) Red Cell Distribution Width 17.8 % (11.6-14.8) H Platelet Count 286 K/UL (150-450) Mean Platelet Volume 6.0 FL (6.5-10.1) L Neutrophils (%) (Auto) 58.5 % (45.0-75.0) Lymphocytes (%) (Auto) 31.3 % (20.0-45.0) Monocytes (%) (Auto) 6.0 % (1.0-10.0) Eosinophils (%) (Auto) 2.7 % (0.0-3.0) Basophils (%) (Auto) 1.4 % (0.0-2.0) Current Medications Medications (Trade) Dose Ordered Sig/Angie Route PRN Reason Start Time Stop Time Status Last Admin Dose Admin Acetaminophen (Tylenol) 650 mg Q6H PRN NG Fever >100.5 06/12/20 08:00 07/12/20 07:59 Acetaminophen (Tylenol) 650 mg Q6H PRN NG Mild Pain (Pain Scale 1-3) 06/12/20 08:00 07/12/20 07:59 Chlorhexidine Gluconate (Ruba-Hex 2%) 1 applic DAILY@1999 TOPIC 06/12/20 20:00 09/10/20 19:59 06/15/20 20:53 Clonidine HCl (Catapres Tab) 0.1 mg Q4H PRN ORAL sbp>170 05/11/20 17:15 08/09/20 17:14 Docusate Sodium (Colace) 100 mg TWICE A DAY ORAL 06/05/20 09:00 07/05/20 08:59 06/16/20 09:40 Furosemide (Lasix) 40 mg DAILY ORAL 06/09/20 09:00 07/09/20 08:59 06/16/20 09:40 Haloperidol Lactate (Haldol) 5 mg Q6H PRN IM Agitation 05/13/20 20:45 06/27/20 20:44 05/28/20 02:40 Heparin Sodium (Porcine) (Heparin 5000 units/ml) 5,000 units EVERY 12 HOURS SUBQ 05/25/20 21:00 07/09/20 20:59 06/16/20 09:45 Lactulose (Cephulac) 20 gm THREE TIMES A DAY ORAL 06/08/20 18:00 07/08/20 17:59 06/16/20 09:40 Lansoprazole (Prevacid) 30 mg BID ORAL 06/05/20 18:00 07/05/20 17:59 06/16/20 09:40 Levothyroxine Sodium (Synthroid) 50 mcg DAILY@0630 ORAL 06/13/20 06:30 07/13/20 06:29 06/14/20 06:04 Polyethylene Glycol (Miralax) 17 gm BEDTIME ORAL 05/25/20 21:00 06/24/20 20:59 06/13/20 20:40 Quetiapine Fumarate (SEROqueL) 50 mg Q12HR ORAL 06/15/20 09:00 07/24/20 20:59 06/16/20 09:40 Lei Chan MD Jun 16, 2020 17:01
--- NOTE | 2020-06-16 19:33 | Psychiatric Progress Note ---
Psychiatry Progress Note Psychiatry Progress Note Subjective the pt has waxing and waning o consciousness on restraints episodes agitation confused Medications Current Medications Medications (Trade) Dose Ordered Sig/Angie Route PRN Reason Start Time Stop Time Status Last Admin Dose Admin Acetaminophen (Tylenol) 650 mg Q6H PRN NG Fever >100.5 06/12/20 08:00 07/12/20 07:59 Acetaminophen (Tylenol) 650 mg Q6H PRN NG Mild Pain (Pain Scale 1-3) 06/12/20 08:00 07/12/20 07:59 Chlorhexidine Gluconate (Ruba-Hex 2%) 1 applic DAILY@1999 TOPIC 06/12/20 20:00 09/10/20 19:59 06/15/20 20:53 Clonidine HCl (Catapres Tab) 0.1 mg Q4H PRN ORAL sbp>170 05/11/20 17:15 08/09/20 17:14 Docusate Sodium (Colace) 100 mg TWICE A DAY ORAL 06/05/20 09:00 07/05/20 08:59 06/16/20 09:40 Furosemide (Lasix) 40 mg DAILY ORAL 06/09/20 09:00 07/09/20 08:59 06/16/20 09:40 Haloperidol Lactate (Haldol) 5 mg Q6H PRN IM Agitation 05/13/20 20:45 06/27/20 20:44 05/28/20 02:40 Heparin Sodium (Porcine) (Heparin 5000 units/ml) 5,000 units EVERY 12 HOURS SUBQ 05/25/20 21:00 07/09/20 20:59 06/16/20 09:45 Lactulose (Cephulac) 20 gm THREE TIMES A DAY ORAL 06/08/20 18:00 07/08/20 17:59 06/16/20 09:40 Lansoprazole (Prevacid) 30 mg BID ORAL 06/05/20 18:00 07/05/20 17:59 06/16/20 09:40 Levothyroxine Sodium (Synthroid) 50 mcg DAILY@0630 ORAL 06/13/20 06:30 07/13/20 06:29 06/14/20 06:04 Polyethylene Glycol (Miralax) 17 gm BEDTIME ORAL 05/25/20 21:00 06/24/20 20:59 06/13/20 20:40 Quetiapine Fumarate (SEROqueL) 50 mg Q12HR ORAL 06/15/20 09:00 07/24/20 20:59 06/16/20 09:40 Neurological/Psychiatric: Reports: anxiety, emotional problems; Denies: no symptoms, depressed, headache, numbness, paresthesia, pre-existing deficit, seizure, tingling, tremors, weakness, other Allergies: Coded Allergies: LITHIUM (Verified Allergy, Unknown, 02/07/19) Objective Data Height (Feet): 5 Height (Inches): 3.00 Weight (Pounds): 183 General Appearance: no apparent distress, lethargic Additional Comments: waxing and waning consciousness. Disoriented. Mood is neutral to agitation. Affect is flat. Thought process, there is paucity of thought process. Thought content, no suicidal or homicidal ideation. Cognition is impaired. Insight and judgment is impaired. Assessment/Plan Marshall I: Marshall I Acute toxic encephalopathy. Schizophrenia. Marshall II Deferred. Marshall III COVID-19. Marshall IV Low. Marshall V 20 PLAN: 1. Discontinue the IV Haldol. 2. Start the patient on Haldol IM. 3. The patient benefits from bilateral soft restraints. 4. Provide the patient with reality orientation. 5. Discussed with the nurse. Status: progressing, unchanged, deteriorating Status Narrative Marshall I Acute toxic encephalopathy. Schizophrenia. Marshall II Deferred. Marshall III COVID-19. Marshall IV Low. Marshall V 20 PLAN: 1. Discontinue the IV Haldol. 2. Start the patient on Haldol IM. 3. The patient benefits from bilateral soft restraints. 4. Provide the patient with reality orientation. 5. Discussed with the nurse. Assessment/Plan: Marshall I Acute toxic encephalopathy. Schizophrenia. Marshall II Deferred. Marshall III COVID-19. Marshall IV Low. Marshall V 20 PLAN: 1. Discontinue the IV Haldol. 2. Start the patient on Haldol IM. 3. The patient benefits from bilateral soft restraints. 4. Provide the patient with reality orientation. 5. Discussed with the nurse. Kiana Hernandez MD Jun 16, 2020 19:33
[2020-06-16 20:00] VITALS: BP 113/36
--- NOTE | 2020-06-16 21:35 | General Progress Note ---
Subjective ROS Limited/Unobtainable: Yes Allergies: Coded Allergies: LITHIUM (Verified Allergy, Unknown, 02/07/19) Objective Last 24 Hour Vital Signs Date Time Temp Pulse Resp B/P (MAP) Pulse Ox O2 Delivery O2 Flow Rate FiO2 06/16/20 20:00 75 06/16/20 19:30 95 Nasal Cannula 3.0 32 06/16/20 16:00 97.2 70 18 101/42 (61) 95 06/16/20 16:00 72 06/16/20 12:00 65 06/16/20 12:00 97.2 72 20 99/69 (79) 96 06/16/20 08:00 Room Air 06/16/20 08:00 97.0 69 18 102/40 (60) 95 06/16/20 08:00 68 06/16/20 04:00 97.5 65 20 107/35 (59) 94 06/16/20 04:00 68 06/16/20 03:07 68 06/16/20 00:00 97.5 88 20 106/52 (70) 95 06/16/20 00:00 68 Intake and Output 06/15/20 06/16/20 19:00 07:00 Intake Total 480 ml 360 ml Balance 480 ml 360 ml Intake Oral 480 ml 360 ml # Voids 2 2 Laboratory Tests 06/16/20 10:25: White Blood Count 6.1, Red Blood Count 2.78L, Hemoglobin 9.2L, Hematocrit 27.5L, Mean Corpuscular Volume 99, Mean Corpuscular Hemoglobin 33.1H, Mean Corpuscular Hemoglobin Concent 33.5, Red Cell Distribution Width 17.8H, Platelet Count 286, Mean Platelet Volume 6.0L, Neutrophils (%) (Auto) 58.5, Lymphocytes (%) (Auto) 31.3, Monocytes (%) (Auto) 6.0, Eosinophils (%) (Auto) 2.7, Basophils (%) (Auto) 1.4 Height (Feet): 5 Height (Inches): 3.00 Weight (Pounds): 183 Assessment/Plan Problem List: (1) Anemia ICD Codes: D64.9 - Anemia, unspecified SNOMED: 368095412 (2) Hypercapnic respiratory failure ICD Codes: J96.92 - Respiratory failure, unspecified with hypercapnia SNOMED: 038904523 (3) COVID-19 ICD Codes: U07.1 - COVID-19 SNOMED: 891886569 (4) COPD (chronic obstructive pulmonary disease) ICD Codes: J44.9 - Chronic obstructive pulmonary disease, unspecified SNOMED: 83374172 (5) Psychosis ICD Codes: F29 - Unspecified psychosis not due to a substance or known physiological condition SNOMED: 35482042 (6) Hypoxia ICD Codes: R09.02 - Hypoxemia SNOMED: 380825972 (7) Renal failure (ARF), acute on chronic ICD Codes: N17.9 - Acute kidney failure, unspecified; N18.9 - Chronic kidney disease, unspecified SNOMED: 412671850 (8) CHF exacerbation ICD Codes: I50.9 - Heart failure, unspecified SNOMED: 115813251, 37271983589185 Status: progressing, unchanged, deteriorating Assessment/Plan: s/p bradycardia and pause sepsis copd exac chf exac low k pacer per dr pichardo abx per dr alcantara obesity tendency to refuse meds psychosis Dani Perera MD Jun 16, 2020 21:35
[2020-06-16] MEDS: Miralax 17gm pkt ORAL SCH (22:07)
[2020-06-16] MEDS: Dyna-Hex 2% Top Sol 2oz TOPIC SCH (22:07)
--- NOTE | 2020-06-16 23:55 | General Progress Note ---
Subjective Allergies: Coded Allergies: LITHIUM (Verified Allergy, Unknown, 02/07/19) Subjective above noted feels OK no abdominal complaints Objective Last 24 Hour Vital Signs Date Time Temp Pulse Resp B/P (MAP) Pulse Ox O2 Delivery O2 Flow Rate FiO2 06/16/20 20:00 98.1 71 18 113/36 (61) 99 06/16/20 20:00 75 06/16/20 19:30 95 Nasal Cannula 3.0 32 06/16/20 16:00 97.2 70 18 101/42 (61) 95 06/16/20 16:00 72 06/16/20 12:00 65 06/16/20 12:00 97.2 72 20 99/69 (79) 96 06/16/20 08:00 Room Air 06/16/20 08:00 97.0 69 18 102/40 (60) 95 06/16/20 08:00 68 06/16/20 04:00 97.5 65 20 107/35 (59) 94 06/16/20 04:00 68 06/16/20 03:07 68 06/16/20 00:00 97.5 88 20 106/52 (70) 95 06/16/20 00:00 68 Intake and Output 06/15/20 06/16/20 19:00 07:00 Intake Total 480 ml 360 ml Balance 480 ml 360 ml Intake Oral 480 ml 360 ml # Voids 2 2 Laboratory Tests 06/16/20 10:25: White Blood Count 6.1, Red Blood Count 2.78L, Hemoglobin 9.2L, Hematocrit 27.5L, Mean Corpuscular Volume 99, Mean Corpuscular Hemoglobin 33.1H, Mean Corpuscular Hemoglobin Concent 33.5, Red Cell Distribution Width 17.8H, Platelet Count 286, Mean Platelet Volume 6.0L, Neutrophils (%) (Auto) 58.5, Lymphocytes (%) (Auto) 31.3, Monocytes (%) (Auto) 6.0, Eosinophils (%) (Auto) 2.7, Basophils (%) (Auto) 1.4 Height (Feet): 5 Height (Inches): 3.00 Weight (Pounds): 183 Objective WDWN WW NCAT CTA RR abd soft no edema Assessment/Plan Status: progressing, unchanged, deteriorating Assessment/Plan: Assessment/Plan (1) Hypertension (2) Schizophrenia (3) Hyperlipidemia (4) Parkinson disease (5) Anemia (6) Obese (7) COVID (+) (8) Hypoxia (9) arrhythmia Recommendations PPI BID Follow H&H Transfuse to keep Hg>7.0 po as tolerated GI procedures at a later date, if needed bowel regimen possible pacemaker placement Aria Chicas MD Jun 16, 2020 23:55
[2020-06-17] VITALS: BP 113/32
[2020-06-17 04:00] VITALS: BP 103/36
--- NOTE | 2020-06-17 06:37 | Hematology/Onc Progress Note ---
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 ( combination of moderate aortic regurgitation and severe mitral regurgitation) --> diuresis as per cards --> lasix last time # Severe ascending aortic dilatation --> per Dr Keke campbell --> meds reviewed # Hypertension # Parkinson disease # Hyperlipidemia # Hypothyroidism # Dementia # Obesity # Schizophrenia --> as per [facility] --> restraints # Dvt ppx heparin sq Appreciate financial operations consultant care and alexei Rn Subjective Cardiovascular: Denies: no symptoms, chest pain, edema, irregular heart rate, lightheadedness, palpitations, syncope, other Respiratory: Denies: no symptoms, cough, shortness of breath, SOB with excertion, SOB at rest, sputum, wheezing, other Gastrointestinal/Abdominal: Denies: no symptoms, abdomen distended, abdominal pain, black stools, tarry stools, blood in stool, constipated, diarrhea, difficulty swallowing, nausea, poor appetite, poor fluid intake, rectal bleeding, vomiting, other Genitourinary: Denies: no symptoms, burning, discharge, frequency, flank pain, hematuria, incontinence, pain, urgency, other Endocrine: Denies: no symptoms, excessive sweating, flushing, intolerance to cold, intolerance to heat, increased hunger, increased thirst, increased urine, unexplained weight gain, unexplained weight loss, other Allergies: Coded Allergies: LITHIUM (Verified Allergy, Unknown, 02/07/19) Subjective 06/01 nonrebreather, 15L, some mild pain in back, chest, no night sweats 06/02 remains on nonrebreather, labs are noted, no bleeding or night sweats 06/03 labs reviewed, meds noted, nonrebreather, c02 was elevated, to inform pulm 06/04 labs reviewed, meds noted, on NR, no night sweats, meds noted 06/05 is on 15lnc venturi mask, is covid iso, labs noted 06/06 labs reviewed, on venturi mask, on b/l soft wrists, meds noted 06/08 labs reviewed, on nc, no bleeding, with picc line, cbc ordered 06/09 labs reviewed, confused, on 3l nc, no night sweats, meds reviewed 06/10 is off restraints, left picc has been removed, no new changes 06/11 remains confused, is to have picc placed, per public guardian 06/12 wrist restraints, very agitated overnight, noncompliant, labs reviewed 06/13 labs noted, no bleedig, hgb remains low, cbc is pending 1: labs reviewed, on restraints, 02 no resp distress 06/15: no acute distress afebrile. hgb 9.2 06/16 labs reviewed, meds noted, no hemolysis, no bleeding 06/17 pacemaker placement is pending, labs reviewed, no new events Objective Objective Current Medications Medications (Trade) Dose Ordered Sig/Angie Route PRN Reason Start Time Stop Time Status Last Admin Dose Admin Acetaminophen (Tylenol) 650 mg Q6H PRN NG Fever >100.5 06/12/20 08:00 07/12/20 07:59 Acetaminophen (Tylenol) 650 mg Q6H PRN NG Mild Pain (Pain Scale 1-3) 06/12/20 08:00 07/12/20 07:59 Chlorhexidine Gluconate (Ruba-Hex 2%) 1 applic DAILY@1999 TOPIC 06/12/20 20:00 09/10/20 19:59 06/16/20 22:07 Clonidine HCl (Catapres Tab) 0.1 mg Q4H PRN ORAL sbp>170 05/11/20 17:15 08/09/20 17:14 Docusate Sodium (Colace) 100 mg TWICE A DAY ORAL 06/05/20 09:00 07/05/20 08:59 06/16/20 09:40 Furosemide (Lasix) 40 mg DAILY ORAL 06/09/20 09:00 07/09/20 08:59 06/16/20 09:40 Haloperidol Lactate (Haldol) 5 mg Q6H PRN IM Agitation 05/13/20 20:45 06/27/20 20:44 05/28/20 02:40 Heparin Sodium (Porcine) (Heparin 5000 units/ml) 5,000 units EVERY 12 HOURS SUBQ 05/25/20 21:00 07/09/20 20:59 06/16/20 22:08 Lactulose (Cephulac) 20 gm THREE TIMES A DAY ORAL 06/08/20 18:00 07/08/20 17:59 06/16/20 09:40 Lansoprazole (Prevacid) 30 mg BID ORAL 06/05/20 18:00 07/05/20 17:59 06/16/20 09:40 Levothyroxine Sodium (Synthroid) 50 mcg DAILY@0630 ORAL 06/13/20 06:30 07/13/20 06:29 06/14/20 06:04 Polyethylene Glycol (Miralax) 17 gm BEDTIME ORAL 05/25/20 21:00 06/24/20 20:59 06/16/20 22:07 Quetiapine Fumarate (SEROqueL) 50 mg Q12HR ORAL 06/15/20 09:00 07/24/20 20:59 06/16/20 22:07 Last 24 Hour Vital Signs Date Time Temp Pulse Resp B/P (MAP) Pulse Ox O2 Delivery O2 Flow Rate FiO2 06/17/20 04:00 97.5 64 18 103/36 (58) 94 06/17/20 04:00 69 06/17/20 00:00 60 06/17/20 00:00 97.9 63 18 113/32 (59) 96 06/16/20 21:00 Room Air 06/16/20 20:00 98.1 71 18 113/36 (61) 99 06/16/20 20:00 75 06/16/20 19:30 95 Nasal Cannula 3.0 32 06/16/20 16:00 97.2 70 18 101/42 (61) 95 06/16/20 16:00 72 06/16/20 12:00 65 06/16/20 12:00 97.2 72 20 99/69 (79) 96 06/16/20 08:00 Room Air 06/16/20 08:00 97.0 69 18 102/40 (60) 95 06/16/20 08:00 68 06/16/20 04:00 97.5 65 20 107/35 (59) 94 06/16/20 04:00 68 06/16/20 03:07 68 06/16/20 00:00 97.5 88 20 106/52 (70) 95 06/16/20 00:00 68 06/15/20 21:00 Room Air 06/15/20 20:00 72 06/15/20 20:00 97.5 70 18 105/30 (55) 96 06/15/20 19:00 96 Room Air 21 06/15/20 16:00 69 06/15/20 16:00 99.0 69 18 107/35 (59) 95 06/15/20 12:00 76 06/15/20 12:00 97.6 72 16 107/38 (61) 95 06/15/20 09:00 Room Air 06/15/20 08:00 64 06/15/20 08:00 98.1 74 20 112/37 (62) 96 06/15/20 07:00 96 Room Air 21 Intake and Output 06/16/20 06/17/20 19:00 07:00 Intake Total 360 ml 150 ml Output Total 120 ml Balance 240 ml 150 ml Intake Oral 360 ml 150 ml Output Urine Total 120 ml # Voids 2 1 Labs Test 06/15/20 09:20 06/16/20 10:25 White Blood Count 6.5 K/UL (4.8-10.8) 6.1 K/UL (4.8-10.8) Red Blood Count 2.75 M/UL (4.20-5.40) 2.78 M/UL (4.20-5.40) Hemoglobin 9.2 G/DL (12.0-16.0) 9.2 G/DL (12.0-16.0) Hematocrit 26.9 % (37.0-47.0) 27.5 % (37.0-47.0) Mean Corpuscular Volume 98 FL (80-99) 99 FL (80-99) Mean Corpuscular Hemoglobin 33.5 PG (27.0-31.0) 33.1 PG (27.0-31.0) Mean Corpuscular Hemoglobin Concent 34.3 G/DL (32.0-36.0) 33.5 G/DL (32.0-36.0) Red Cell Distribution Width 18.1 % (11.6-14.8) 17.8 % (11.6-14.8) Platelet Count 290 K/UL (150-450) 286 K/UL (150-450) Mean Platelet Volume 6.2 FL (6.5-10.1) 6.0 FL (6.5-10.1) Neutrophils (%) (Auto) 58.6 % (45.0-75.0) 58.5 % (45.0-75.0) Lymphocytes (%) (Auto) 31.0 % (20.0-45.0) 31.3 % (20.0-45.0) Monocytes (%) (Auto) 6.2 % (1.0-10.0) 6.0 % (1.0-10.0) Eosinophils (%) (Auto) 3.3 % (0.0-3.0) 2.7 % (0.0-3.0) Basophils (%) (Auto) 0.8 % (0.0-2.0) 1.4 % (0.0-2.0) Height (Feet): 5 Height (Inches): 3.00 Weight (Pounds): 183 Objective Physical Exam: Vitals: reviewed General: NAD HEENT: nc, at Neck: supple Chest: decreased breath sounds bilaterally, crackles+++ 15L NRM Cardiovascular: RRR, no s3, s4 Abdomen: soft, nontender, nd Extremities: 1-2 + edema Neuro: nonverbal Frank Escobar MD Jun 17, 2020 06:37
[2020-06-17 08:00] VITALS: BP 122/61
[2020-06-17] MEDS: Furosemide 40mg tab ORAL SCH ×2 (09:00→10:14)
--- NOTE | 2020-06-17 09:25 | Nephrology Progress Note ---
Assessment/Plan Problem List: (1) Renal failure (ARF), acute on chronic (2) Hypercapnic respiratory failure (3) CHF exacerbation (4) Anemia Assessment Azotemia/renal failure Acute respiratory failure most likely secondary to CHF, on mechanical ventilation History of COPD Hypertension Hyperlipemia Schizophrenia/psychosis Plan Error June 16: No CHEM panel drawn today. Will check it tomorrow. Continue per consultants. Patient full code. June 15: Labs reviewed. Low potassium addressed. Renal parameters stable. Continue per consultants. June 14: Labs reviewed. Low potassium replaced. Serum creatinine normalized. Continue per consultants. June 13: No labs drawn today. Patient clinically stable. Continue to monitor renal parameters. June 12: Lab reviewed. Renal parameters are stable. Continue per consultants. June 11: Labs reviewed. Low potassium noted and addressed. Continue per consultants. Continue to monitor renal parameters. June 10: No CHEM panel drawn today. Check lab tomorrow. Continue per consultants. On room air oxygen June 09: Labs reviewed. Renal parameters stable. Continue per current treatment plan. June 08: Labs reviewed. Low potassium addressed. Continue per consultants. June 07: Stable renal parameters. Continue per consultants. Overall sta ble. June 06: Status quo. Remains on Venturi mask. Labs reviewed. Renal parameters stable. Continue per consultants. June 05: Lethargic. On Venturi mask. Labs reviewed. Returning bicarb. Continue to monitor ABG and electrolytes. Low potassium addressed. June 04: Remains on Venturi mask. No can panel done today. ABG results reviewed. Continue per pulmonary. June 03: Poor respiratory status. ABG noted. Patient hypoxic. Renal parameters somewhat stable. Continue per pulmonary. June 02: Labs reviewed. Low phosphorus replaced. Patient has periodic severe bradycardia. Continue per cardiology. June 01: Labs reviewed. Low magnesium replaced. Renal parameters stable. Hemoglobin level reasonable. Continue per consultants. May 31: Labs reviewed. Abnormal electrolytes at rest. Hemoglobin higher. Discussed with DARREL Cooper. Continue per consultants. May 30: Lab reviewed. Potassium and phosphorus replaced. Hemoglobin higher after transfusion. Continue per consultants. May 29: Lab reviewed. Patient anemic. Electrolyte abnormalities reviewed and addressed. Continue per consultants. Remains stable from renal standpoint of view. May 28: Patient was not transfused despite of my order since yesterday. Wi ll defer transfusion to PMD/copy holder. Patient remains stable from renal standpoint of view. Continue per consultants. Discussed with Marlene nursing charge in [facility]. May 27: Remains on Venturi mask. Labs reviewed. Abnormal electrolytes addressed. Hemoglobin low. Will transfuse 1 unit of packed RBCs today May 26: On Venturi mask. Labs reviewed. Abnormal electrolytes addressed. Continue per consultants and pulmonary support. May 25: On Venturi mask. Lethargic. No labs drawn today. Will monitor renal parameters. Per orders. May 24: Remains extubated. Will start on diet with high alert for possible aspiration. Continue to monitor renal parameters. May 23: Continues to be extubated. On nonrebreathing mask. Labs reviewed. Renal parameters stable. Discussed with RN. Continue per current management. May 22: Now extubated on nonrebreathing mask. Labs reviewed. Renal parameters stable. Abnormal electrolytes addressed. Discussed with RN. May 21: Remains intubated. Labs reviewed. Abnormal electrolytes addressed. Discussed with RN. May 20: Remains intubated. Abnormal electrolyte noted on today's lab results and addressed. Continue per consultants. May 19: Patient remains intubated. Labs reviewed. Abnormal electrolytes addressed. Continue per current management. May 18: Patient seen in ICU. Remains intubated. Weaning is being tried. Discussed with RN. Labs reviewed. Abnormal electrolyte addressed. Continue per consultants. May 17: Labs reviewed. Remains intubated. Stable from renal standpoint of view. Continue weaning. Discussed with RN. May 16: Labs reviewed. Remains intubated. Remains full code. Stable from renal standpoint of view. Abnormal electrolytes addressed. May 15: Labs reviewed. Renal parameters stable. Discussed with RN. Patient remains intubated on ventilator and full code. Continue per consultants. May 14: Labs reviewed. Discussed with RN. Abnormal electrolyte addressed. Continue per current management. Patient seen in ICU. Discussed with RN. Today's labs pending. Patient remains on 6 mics of dopamine. Pulmonary support Monitor intake and output Monitor electrolytes Continue per consultants Per orders Objective Objective Last 24 Hour Vital Signs Date Time Temp Pulse Resp B/P (MAP) Pulse Ox O2 Delivery O2 Flow Rate FiO2 06/17/20 04:00 97.5 64 18 103/36 (58) 94 06/17/20 04:00 69 06/17/20 00:00 60 06/17/20 00:00 97.9 63 18 113/32 (59) 96 06/16/20 21:00 Room Air 06/16/20 20:00 98.1 71 18 113/36 (61) 99 06/16/20 20:00 75 06/16/20 19:30 95 Nasal Cannula 3.0 32 06/16/20 16:00 97.2 70 18 101/42 (61) 95 06/16/20 16:00 72 06/16/20 12:00 65 06/16/20 12:00 97.2 72 20 99/69 (79) 96 Intake and Output 06/16/20 06/17/20 19:00 07:00 Intake Total 360 ml 150 ml Output Total 120 ml Balance 240 ml 150 ml Intake Oral 360 ml 150 ml Output Urine Total 120 ml # Voids 2 1 Laboratory Tests 06/16/20 10:25: White Blood Count 6.1, Red Blood Count 2.78L, Hemoglobin 9.2L, Hematocrit 27.5L, Mean Corpuscular Volume 99, Mean Corpuscular Hemoglobin 33.1H, Mean Corpuscular Hemoglobin Concent 33.5, Red Cell Distribution Width 17.8H, Platelet Count 286, Mean Platelet Volume 6.0L, Neutrophils (%) (Auto) 58.5, Lymphocytes (%) (Auto) 31.3, Monocytes (%) (Auto) 6.0, Eosinophils (%) (Auto) 2.7, Basophils (%) (Auto) 1.4 Height (Feet): 5 Height (Inches): 3.00 Weight (Pounds): 183 Bryan Ochoa MD Jun 17, 2020 09:25
[2020-06-17 09:56] LABS: ALBUMIN 2.9 G/DL (3.4-5.0); ALBUMIN/GLOBULIN RATIO 0.7 (1.0-2.7); BILIRUBIN,TOTAL 0.5 MG/DL (0.2-1.0); CALCIUM 8.9 MG/DL (8.5-10.1); PHOSPHORUS 2.8 MG/DL (2.5-4.9); POTASSIUM 4.1 MMOL/L (3.5-5.1)
[2020-06-17] MEDS: Lactulose 20gm/30ml UDC ORAL SCH ×3 (10:09→18:21)
[2020-06-17] MEDS: Docusate 100mg/10ml Liq ORAL SCH ×2 (10:10→18:21)
[2020-06-17] MEDS: Heparin 5000 units/ml inj SUBQ SCH ×2 (10:11→21:07)
--- NOTE | 2020-06-17 10:31 | Pulmonology Progress Note ---
Subjective ROS Limited/Unobtainable: Yes Interval Events: none major reported per nursing Constitutional: Denies: fever HEENT: Repors: no symptoms Respiratory: Reports: no symptoms Cardiovascular: Reports: no symptoms Gastrointestinal/Abdominal: Reports: no symptoms Genitourinary: Reports: no symptoms Allergies: Coded Allergies: LITHIUM (Verified Allergy, Unknown, 02/07/19) Objective Last 24 Hour Vital Signs Date Time Temp Pulse Resp B/P (MAP) Pulse Ox O2 Delivery O2 Flow Rate FiO2 06/17/20 04:00 97.5 64 18 103/36 (58) 94 06/17/20 04:00 69 06/17/20 00:00 60 06/17/20 00:00 97.9 63 18 113/32 (59) 96 06/16/20 21:00 Room Air 06/16/20 20:00 98.1 71 18 113/36 (61) 99 06/16/20 20:00 75 06/16/20 19:30 95 Nasal Cannula 3.0 32 06/16/20 16:00 97.2 70 18 101/42 (61) 95 06/16/20 16:00 72 06/16/20 12:00 65 06/16/20 12:00 97.2 72 20 99/69 (79) 96 Intake and Output 06/16/20 06/17/20 19:00 07:00 Intake Total 360 ml 150 ml Output Total 120 ml Balance 240 ml 150 ml Intake Oral 360 ml 150 ml Output Urine Total 120 ml # Voids 2 1 Objective 06/17 no change 06/16 no change respiratory-ortega 06/15 no change 06/14 on RA; stable respiratory-ortega 06/11 no change 06/10 remains on room air; off isolation now 06/09 seen in tele; now saturating at 93-94% on room air 06/06 no change 06/05 now on 14L Ventimask saturating at high 90s 05/31 on Venturi mask saturating well 05/29/2020 now on 2 lpm NC saturating at 97%; in transfusion 05/28/2020 in SDU; currently on Venturi mask 14L FiO2 14L saturating well 05/27/2020 in SDU; s/p failed attempt at switching to NC due to patient noncompliance; currently saturating low-mid 90s when she is actually on Venturi mask 14L 05/26/2020 in SDU; keeps taking off her NRB and desats to 79-80% 05/24/2020 in ICUD; restless, saturating ok with NC 05/19/2020 Pt in ICU; full code General Appearance: no acute distress HEENT: normocephalic Respiratory: no respiratory distress, decreased breath sounds Cardiovascular: normal rate Abdomen: soft, non tender, other - obese Extremities: other - b/l 2+ pitting edema Neurologic: disoriented Laboratory Tests 06/17/20 09:25: Sodium Level 138, Potassium Level 4.1, Chloride Level 104, Carbon Dioxide Level 29, Anion Gap 6, Blood Urea Nitrogen 25H, Creatinine 1.0, Estimat Glomerular Filtration Rate 53.3, Glucose Level 125H, Calcium Level 8.9, Phosphorus Level 2 .8, Magnesium Level 2.0, Total Bilirubin 0.5, Aspartate Amino Transf (AST/SGOT) 13L, Alanine Aminotransferase (ALT/SGPT) 9L, Alkaline Phosphatase 39L, Total Protein 6.8, Albumin 2.9L, Globulin 3.9, Albumin/Globulin Ratio 0.7L Current Medications Medications (Trade) Dose Ordered Sig/Angie Route PRN Reason Start Time Stop Time Status Last Admin Dose Admin Acetaminophen (Tylenol) 650 mg Q6H PRN NG Fever >100.5 06/12/20 08:00 07/12/20 07:59 Acetaminophen (Tylenol) 650 mg Q6H PRN NG Mild Pain (Pain Scale 1-3) 06/12/20 08:00 07/12/20 07:59 Chlorhexidine Gluconate (Ruba-Hex 2%) 1 applic DAILY@1999 TOPIC 06/12/20 20:00 09/10/20 19:59 06/16/20 22:07 Clonidine HCl (Catapres Tab) 0.1 mg Q4H PRN ORAL sbp>170 05/11/20 17:15 08/09/20 17:14 Docusate Sodium (Colace) 100 mg TWICE A DAY ORAL 06/05/20 09:00 07/05/20 08:59 06/17/20 10:10 Furosemide (Lasix) 40 mg DAILY ORAL 06/09/20 09:00 07/09/20 08:59 06/17/20 10:14 Haloperidol Lactate (Haldol) 5 mg Q6H PRN IM Agitation 05/13/20 20:45 06/27/20 20:44 05/28/20 02:40 Heparin Sodium (Porcine) (Heparin 5000 units/ml) 5,000 units EVERY 12 HOURS SUBQ 05/25/20 21:00 07/09/20 20:59 06/17/20 10:11 Lactulose (Cephulac) 20 gm THREE TIMES A DAY ORAL 06/08/20 18:00 07/08/20 17:59 06/17/20 10:09 Lansoprazole (Prevacid) 30 mg BID ORAL 06/05/20 18:00 07/05/20 17:59 06/17/20 10:10 Levothyroxine Sodium (Synthroid) 50 mcg DAILY@0630 ORAL 06/13/20 06:30 07/13/20 06:29 06/17/20 06:41 Polyethylene Glycol (Miralax) 17 gm BEDTIME ORAL 05/25/20 21:00 06/24/20 20:59 06/16/20 22:07 Quetiapine Fumarate (SEROqueL) 50 mg Q12HR ORAL 06/15/20 09:00 07/24/20 20:59 06/17/20 10:10 Assessment/Plan Assessment/Plan 1. Bilateral COVID-19 multilobar pneumonia. - s/p ETT removal - Afebrile - s/p Azithromycin, Ceftriaxone, dexamethasone, and remdesivir - CXR 05/31 Patchy bilateral airspace consolidations, consistent with multifocal infiltrate, similar in appearance to previous study from 05/30; Stable, small bilateral pleural effusions. - COVID-19 PCR 06/02 inconclusive result - COVID-19 PCR 06/04 positive - now off isolation - provide supplemental oxygen as needed 2. Hx of COPD. 3. Schizophrenia/psychosis - On haloperidol per Dr. Hernandez 4. Hypoxia. -Now on room air; saturating well - X-ray chest on 06/07 shows significantly improved bilateral pulmonary infiltrates - Now on oral Lasix 40 mg - off Diamox - recommend continued diuresis with ongoing BUN/Cr monitoring 5. Anemia; improved - Stool OB neg 6. SSS - plan for pacer noted; per cardio - Awaiting pacer consent from conservator/court as ID cleared the patient for PPM implant - unit manager's note reviewed DVT ppx The care for this patient was discussed with my supervising physician Time spent for this case was approximately 31 minutes Trae Avilez Jun 17, 2020 10:31
--- NOTE | 2020-06-17 10:39 | Cardiac Electrophysiology PN ---
Assessment/Plan Assessment/Plan 1. Covid PNA and respiratory failure. S/P Remdesevir and Dexamethasone Self extubated on RA. Off Abx per ID. On Lasix [address] Myers Now off isolation 2. SSS with 8 pauses of more than 3 seconds including 9 and 10 second pauses off any QUEZADA or AVN blockers. DW patients public Guardian, Mr. Mohit Hyatt at [phone] today at 10.30 am who stated the conservator is actually Mr Manpreet Wyatt Mr Mohit Hyatt also stated that he is covering Mr Wyatt today again and will get back to me in regards to authorization 3. Hypotension. Off Dopamine. EF 55% 4. Schizophrenia and psychosis. 5. S/P MRSA & Klebsiella pneumonia DW RN and case management Subjective Subjective Self extubated on 05/22/20 off Covid isolation. Had multiple pauses of more than 3 seconds including a 4s and 7s and a 10 second pause at 1 AM on 05/31 Had pauses of 7, 8 and 6 seconds again 06/01/20 On RA in restraints. S/P RUE PICC line DW patients public Guardian, Mr. Mohit Hyatt at [phone] today at 10.30 am who stated the conservator is actually Mr Manpreet Wyatt Mr Mohit Hyatt stated that he is covering him today again and will get back to me in regards to authorization Objective Last 24 Hour Vital Signs Date Time Temp Pulse Resp B/P (MAP) Pulse Ox O2 Delivery O2 Flow Rate FiO2 06/17/20 04:00 97.5 64 18 103/36 (58) 94 06/17/20 04:00 69 06/17/20 00:00 60 06/17/20 00:00 97.9 63 18 113/32 (59) 96 06/16/20 21:00 Room Air 06/16/20 20:00 98.1 71 18 113/36 (61) 99 06/16/20 20:00 75 06/16/20 19:30 95 Nasal Cannula 3.0 32 06/16/20 16:00 97.2 70 18 101/42 (61) 95 06/16/20 16:00 72 06/16/20 12:00 65 06/16/20 12:00 97.2 72 20 99/69 (79) 96 Intake and Output 06/16/20 06/17/20 19:00 07:00 Intake Total 360 ml 150 ml Output Total 120 ml Balance 240 ml 150 ml Intake Oral 360 ml 150 ml Output Urine Total 120 ml # Voids 2 1 Laboratory Tests Test 06/17/20 09:25 Sodium Level 138 MMOL/L (136-145) Potassium Level 4.1 MMOL/L (3.5-5.1) Chloride Level 104 MMOL/L (98-107) Carbon Dioxide Level 29 MMOL/L (21-32) Anion Gap 6 mmol/L (5-15) Blood Urea Nitrogen 25 mg/dL (7-18) H Creatinine 1.0 MG/DL (0.55-1.30) Estimat Glomerular Filtration Rate 53.3 mL/min (>60) Glucose Level 125 MG/DL (74-106) H Calcium Level 8.9 MG/DL (8.5-10.1) Phosphorus Level 2.8 MG/DL (2.5-4.9) Magnesium Level 2.0 MG/DL (1.8-2.4) Total Bilirubin 0.5 MG/DL (0.2-1.0) Aspartate Amino Transf (AST/SGOT) 13 U/L (15-37) L Alanine Aminotransferase (ALT/SGPT) 9 U/L (12-78) L Alkaline Phosphatase 39 U/L (46-116) L Total Protein 6.8 G/DL (6.4-8.2) Albumin 2.9 G/DL (3.4-5.0) L Globulin 3.9 g/dL Albumin/Globulin Ratio 0.7 (1.0-2.7) L Objective HEAD AND NECK: Positive JVD. LUNGS: Decreased breath sounds. CARDIOVASCULAR: Regular S1 and S2 with no gallop. ABDOMEN: Obese. EXTREMITIES: Bilateral 2+ pitting edema. Cameron Davies MD Jun 17, 2020 10:39
--- NOTE | 2020-06-17 11:27 | Infectious Diseases Prog Note ---
Assessment/Plan Assessment/Plan IMPRESSION: COVID-19 disease, Acute respiratory failure, COPD, Diastolic CHF, Mitral valve regurgitation, Anemia, Parkinson disease, schizoaffective disorder, Dementia, Obstructive sleep apnea, Hypothyroidism. 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 SSS with pause RECOMMENDATION: Finished dexamethasone & Remdesivir course Observe off of antibiotic Waiting for pacemaker placement Subjective ROS Limited/Unobtainable: Yes Neurologic: Reports: confusion, other - on restraint Allergies: Coded Allergies: LITHIUM (Verified Allergy, Unknown, 02/07/19) Objective Last 24 Hour Vital Signs Date Time Temp Pulse Resp B/P (MAP) Pulse Ox O2 Delivery O2 Flow Rate FiO2 06/17/20 08:00 68 06/17/20 08:00 96.7 89 18 122/61 (81) 94 06/17/20 04:00 97.5 64 18 103/36 (58) 94 06/17/20 04:00 69 06/17/20 00:00 60 06/17/20 00:00 97.9 63 18 113/32 (59) 96 06/16/20 21:00 Room Air 06/16/20 20:00 98.1 71 18 113/36 (61) 99 06/16/20 20:00 75 06/16/20 19:30 95 Nasal Cannula 3.0 32 06/16/20 16:00 97.2 70 18 101/42 (61) 95 06/16/20 16:00 72 06/16/20 12:00 65 06/16/20 12:00 97.2 72 20 99/69 (79) 96 Height (Feet): 5 Height (Inches): 3.00 Weight (Pounds): 183 General Appearance: no acute distress HEENT: mucous membranes moist Respiratory/Chest: lungs clear Cardiovascular: normal rate, other - PICC line Abdomen: soft, non tender Extremities: no edema Neurologic/Psychiatric: alert, responsive Laboratory Tests Test 06/17/20 09:25 Sodium Level 138 MMOL/L (136-145) Potassium Level 4.1 MMOL/L (3.5-5.1) Chloride Level 104 MMOL/L (98-107) Carbon Dioxide Level 29 MMOL/L (21-32) Anion Gap 6 mmol/L (5-15) Blood Urea Nitrogen 25 mg/dL (7-18) H Creatinine 1.0 MG/DL (0.55-1.30) Estimat Glomerular Filtration Rate 53.3 mL/min (>60) Glucose Level 125 MG/DL (74-106) H Calcium Level 8.9 MG/DL (8.5-10.1) Phosphorus Level 2.8 MG/DL (2.5-4.9) Magnesium Level 2.0 MG/DL (1.8-2.4) Total Bilirubin 0.5 MG/DL (0.2-1.0) Aspartate Amino Transf (AST/SGOT) 13 U/L (15-37) L Alanine Aminotransferase (ALT/SGPT) 9 U/L (12-78) L Alkaline Phosphatase 39 U/L (46-116) L Total Protein 6.8 G/DL (6.4-8.2) Albumin 2.9 G/DL (3.4-5.0) L Globulin 3.9 g/dL Albumin/Globulin Ratio 0.7 (1.0-2.7) L Current Medications Medications (Trade) Dose Ordered Sig/Angie Route PRN Reason Start Time Stop Time Status Last Admin Dose Admin Acetaminophen (Tylenol) 650 mg Q6H PRN NG Fever >100.5 06/12/20 08:00 07/12/20 07:59 Acetaminophen (Tylenol) 650 mg Q6H PRN NG Mild Pain (Pain Scale 1-3) 06/12/20 08:00 07/12/20 07:59 Chlorhexidine Gluconate (Ruba-Hex 2%) 1 applic DAILY@1999 TOPIC 06/12/20 20:00 09/10/20 19:59 06/16/20 22:07 Clonidine HCl (Catapres Tab) 0.1 mg Q4H PRN ORAL sbp>170 05/11/20 17:15 08/09/20 17:14 Docusate Sodium (Colace) 100 mg TWICE A DAY ORAL 06/05/20 09:00 07/05/20 08:59 06/17/20 10:10 Furosemide (Lasix) 40 mg DAILY ORAL 06/09/20 09:00 07/09/20 08:59 06/17/20 10:14 Haloperidol Lactate (Haldol) 5 mg Q6H PRN IM Agitation 05/13/20 20:45 06/27/20 20:44 05/28/20 02:40 Heparin Sodium (Porcine) (Heparin 5000 units/ml) 5,000 units EVERY 12 HOURS SUBQ 05/25/20 21:00 07/09/20 20:59 06/17/20 10:11 Lactulose (Cephulac) 20 gm THREE TIMES A DAY ORAL 06/08/20 18:00 07/08/20 17:59 06/17/20 10:09 Lansoprazole (Prevacid) 30 mg BID ORAL 06/05/20 18:00 07/05/20 17:59 06/17/20 10:10 Levothyroxine Sodium (Synthroid) 50 mcg DAILY@0630 ORAL 06/13/20 06:30 07/13/20 06:29 06/17/20 06:41 Polyethylene Glycol (Miralax) 17 gm BEDTIME ORAL 05/25/20 21:00 06/24/20 20:59 06/16/20 22:07 Quetiapine Fumarate (SEROqueL) 50 mg Q12HR ORAL 06/15/20 09:00 07/24/20 20:59 06/17/20 10:10 Lei Chan MD Jun 17, 2020 11:27
--- NOTE | 2020-06-17 11:50 | Cardiac Electrophysiology PN ---
Assessment/Plan Assessment/Plan 1. Covid PNA and respiratory failure. S/P Remdesevir and Dexamethasone Self extubated on RA. Off Abx per ID. On Lasix [address] Myers Now off isolation 2. SSS with 8 pauses of more than 3 seconds including 9 and 10 second pauses off any QUEZADA or AVN blockers. DW patients public Guardian, Mr. Mohit Hyatt at [phone] today at 10.30 am who stated the conservator is actually Mr Manpreet Wyatt Mr Mohit Hyatt also stated that he was covering Mr Wyatt DW Mr. Manpreet Wyatt, conservator at [phone] who agreed to proceed with 2 physician consent per hospital policy Scheduled for 2 pm tomorrow 3. Hypotension. Off Dopamine. EF 55% 4. Schizophrenia and psychosis. 5. S/P MRSA & Klebsiella pneumonia DW RN and case management Subjective Subjective Self extubated on 05/22/20 off Covid isolation. Had multiple pauses of more than 3 seconds including a 4s and 7s and a 10 second pause at 1 AM on 05/31 Had pauses of 7, 8 and 6 seconds again 06/01/20 On RA in restraints. S/P RUE PICC line DW patients public Guardian, Mr. Mohit Hyatt at [phone] today at 10.30 am who stated the conservator is actually Mr Manpreet Wyatt Mr Mohit Hyatt stated that he is covering him today again and will get back to me in regards to authorization Objective Last 24 Hour Vital Signs Date Time Temp Pulse Resp B/P (MAP) Pulse Ox O2 Delivery O2 Flow Rate FiO2 06/17/20 08:00 68 06/17/20 08:00 96.7 89 18 122/61 (81) 94 06/17/20 04:00 97.5 64 18 103/36 (58) 94 06/17/20 04:00 69 06/17/20 00:00 60 06/17/20 00:00 97.9 63 18 113/32 (59) 96 06/16/20 21:00 Room Air 06/16/20 20:00 98.1 71 18 113/36 (61) 99 06/16/20 20:00 75 06/16/20 19:30 95 Nasal Cannula 3.0 32 06/16/20 16:00 97.2 70 18 101/42 (61) 95 06/16/20 16:00 72 06/16/20 12:00 65 06/16/20 12:00 97.2 72 20 99/69 (79) 96 Intake and Output 0 06/16/20 06/17/20 19:00 07:00 Intake Total 360 ml 150 ml Output Total 120 ml Balance 240 ml 150 ml Intake Oral 360 ml 150 ml Output Urine Total 120 ml # Voids 2 1 Laboratory Tests Test 06/17/20 09:25 Sodium Level 138 MMOL/L (136-145) Potassium Level 4.1 MMOL/L (3.5-5.1) Chloride Level 104 MMOL/L (98-107) Carbon Dioxide Level 29 MMOL/L (21-32) Anion Gap 6 mmol/L (5-15) Blood Urea Nitrogen 25 mg/dL (7-18) H Creatinine 1.0 MG/DL (0.55-1.30) Estimat Glomerular Filtration Rate 53.3 mL/min (>60) Glucose Level 125 MG/DL (74-106) H Calcium Level 8.9 MG/DL (8.5-10.1) Phosphorus Level 2.8 MG/DL (2.5-4.9) Magnesium Level 2.0 MG/DL (1.8-2.4) Total Bilirubin 0.5 MG/DL (0.2-1.0) Aspartate Amino Transf (AST/SGOT) 13 U/L (15-37) L Alanine Aminotransferase (ALT/SGPT) 9 U/L (12-78) L Alkaline Phosphatase 39 U/L (46-116) L Total Protein 6.8 G/DL (6.4-8.2) Albumin 2.9 G/DL (3.4-5.0) L Globulin 3.9 g/dL Albumin/Globulin Ratio 0.7 (1.0-2.7) L Objective HEAD AND NECK: Positive JVD. LUNGS: Decreased breath sounds. CARDIOVASCULAR: Regular S1 and S2 with no gallop. ABDOMEN: Obese. EXTREMITIES: Bilateral 2+ pitting edema. Cameron Davies MD Jun 17, 2020 11:50
[2020-06-17 12:00] VITALS: BP 128/69
--- NOTE | 2020-06-17 14:23 | Nephrology Progress Note ---
Assessment/Plan Problem List: (1) Renal failure (ARF), acute on chronic (2) Hypercapnic respiratory failure (3) CHF exacerbation (4) Anemia Assessment Azotemia/renal failure Acute respiratory failure most likely secondary to CHF, on mechanical ventilation History of COPD Hypertension Hyperlipemia Schizophrenia/psychosis Plan June 17: Labs reviewed. Renal parameters stable. Continue per consultants. June 16: No CHEM panel drawn today. Will check it tomorrow. Continue per consultants. Patient full code. June 15: Labs reviewed. Low potassium addressed. Renal parameters stable. Continue per consultants. June 14: Labs reviewed. Low potassium replaced. Serum creatinine normalized. Continue per consultants. June 13: No labs drawn today. Patient clinically stable. Continue to monitor renal parameters. June 12: Lab reviewed. Renal parameters are stable. Continue per consultants. June 11: Labs reviewed. Low potassium noted and addressed. Continue per consultants. Continue to monitor renal parameters. June 10: No CHEM panel drawn today. Check lab tomorrow. Continue per consultants. On room air oxygen June 09: Labs reviewed. Renal parameters stable. Continue per current treatment plan. June 08: Labs reviewed. Low potassium addressed. Continue per consultants. June 07: Stable renal parameters. Continue per consultants. Overall stable. June 06: Status quo. Remains on Venturi mask. Labs reviewed. Renal parameters stable. Continue per consultants. June 05: Lethargic. On Venturi mask. Labs reviewed. Returning bicarb. Continue to monitor ABG and electrolytes. Low potassium addressed. June 04: Remains on Venturi mask. No can panel done today. ABG results reviewed. Continue per pulmonary. June 03: Poor respiratory status. ABG noted. Patient hypoxic. Renal parameters somewhat stable. Continue per pulmonary. June 02: Labs reviewed. Low phosphorus replaced. Patient has periodic severe bradycardia. Continue per cardiology. June 01: Labs reviewed. Low magnesium replaced. Renal parameters stable. Hemoglobin level reasonable. Continue per consultants. May 31: Labs reviewed. Abnormal electrolytes at rest. Hemoglobin higher. Discussed with DARREL Cooper. Continue per consultants. May 30: Lab reviewed. Potassium and phosphorus replaced. Hemoglobin higher after transfusion. Continue per consultants. May 29: Lab reviewed. Patient anemic. Electrolyte abnormalities reviewed and addressed. Continue per consultants. Remains stable from renal standpoint of view. May 28: Patient was not transfused despite of my order since yesterday. Will defer transfusion to PMD/ged preparation teacher. Patient remains stable from renal standpoint of view. Continue per consultants. Discussed with Marlene nursing charge in [place]. May 27: Remains on Venturi mask. Labs reviewed. Abnormal electrolytes addressed. Hemoglobin low. Will transfuse 1 unit of packed RBCs today May 26: On Venturi mask. Labs reviewed. Abnormal electrolytes addressed. Continue per consultants and pulmonary support. May 25: On Venturi mask. Lethargic. No labs drawn today. Will monitor renal parameters. Per orders. May 24: Remains extubated. Will start on diet with high alert for possible aspiration. Continue to monitor renal parameters. May 23: Continues to be extubated. On nonrebreathing mask. Labs reviewed. Renal parameters stable. Discussed with RN. Continue per current management. May 22: Now extubated on nonrebreathing mask. Labs reviewed. Renal parameters stable. Abnormal electrolytes addressed. Discussed with RN. May 21: Remains intubated. Labs reviewed. Abnormal electrolytes addressed. Discussed with RN. May 20: Remains intubated. Abnormal electrolyte noted on today's lab results and addressed. Continue per consultants. May 19: Patient remains intubated. Labs reviewed. Abnormal electrolytes addressed. Continue per current management. May 18: Patient seen in ICU. Remains intubated. Weaning is being tried. Discussed with RN. Labs reviewed. Abnormal electrolyte addressed. Continue per consultants. May 17: Labs reviewed. Remains intubated. Stable from renal standpoint of view. Continue weaning. Discussed with RN. May 16: Labs reviewed. Remains intubated. Remains full code. Stable from renal standpoint of view. Abnormal electrolytes addressed. May 15: Labs reviewed. Renal parameters stable. Discussed with RN. Patient remains intubated on ventilator and full code. Continue per consultants. May 14: Labs reviewed. Discussed with RN. Abnormal electrolyte addressed. Continue per current management. Patient seen in ICU. Discussed with RN. Today's labs pending. Patient remains on 6 mics of dopamine. Pulmonary support Monitor intake and output Monitor electrolytes Continue per consultants Per orders Subjective ROS Limited/Unobtainable: No Constitutional: Reports: malaise, weakness Objective Objective Last 24 Hour Vital Signs Date Time Temp Pulse Resp B/P (MAP) Pulse Ox O2 Delivery O2 Flow Rate FiO2 06/17/20 12:00 69 06/17/20 12:00 96.6 81 20 128/69 (88) 95 06/17/20 09:00 Room Air 06/17/20 08:00 68 06/17/20 08:00 96.7 89 18 122/61 (81) 94 06/17/20 04:00 97.5 64 18 103/36 (58) 94 06/17/20 04:00 69 06/17/20 00:00 60 06/17/20 00:00 97.9 63 18 113/32 (59) 96 06/16/20 21:00 Room Air 06/16/20 20:00 98.1 71 18 113/36 (61) 99 06/16/20 20:00 75 06/16/20 19:30 95 Nasal Cannula 3.0 32 06/16/20 16:00 97.2 70 18 101/42 (61) 95 06/16/20 16:00 72 Intake and Output 06/16/20 06/17/20 19:00 07:00 Intake Total 360 ml 150 ml Output Total 120 ml Balance 240 ml 150 ml Intake Oral 360 ml 150 ml Output Urine Total 120 ml # Voids 2 1 Current Medications Medications (Trade) Dose Ordered Sig/Angie Route PRN Reason Start Time Stop Time Status Last Admin Dose Admin Acetaminophen (Tylenol) 650 mg Q6H PRN NG Fever >100.5 06/12/20 08:00 07/12/20 07:59 Acetaminophen (Tylenol) 650 mg Q6H PRN NG Mild Pain (Pain Scale 1-3) 06/12/20 08:00 07/12/20 07:59 Chlorhexidine Gluconate (Ruba-Hex 2%) 1 applic DAILY@1999 TOPIC 06/12/20 20:00 09/10/20 19:59 06/16/20 22:07 Clonidine HCl (Catapres Tab) 0.1 mg Q4H PRN ORAL sbp>170 05/11/20 17:15 08/09/20 17:14 Docusate Sodium (Colace) 100 mg TWICE A DAY ORAL 06/05/20 09:00 07/05/20 08:59 06/17/20 10:10 Furosemide (Lasix) 40 mg DAILY ORAL 06/09/20 09:00 07/09/20 08:59 06/17/20 10:14 Haloperidol Lactate (Haldol) 5 mg Q6H PRN IM Agitation 05/13/20 20:45 06/27/20 20:44 05/28/20 02:40 Heparin Sodium (Porcine) (Heparin 5000 units/ml) 5,000 units EVERY 12 HOURS SUBQ 05/25/20 21:00 07/09/20 20:59 06/17/20 10:11 Lactulose (Cephulac) 20 gm THREE TIMES A DAY ORAL 06/08/20 18:00 07/08/20 17:59 06/17/20 13:30 Lansoprazole (Prevacid) 30 mg BID ORAL 06/05/20 18:00 07/05/20 17:59 06/17/20 10:10 Levothyroxine Sodium (Synthroid) 50 mcg DAILY@0630 ORAL 06/13/20 06:30 07/13/20 06:29 06/17/20 06:41 Polyethylene Glycol (Miralax) 17 gm BEDTIME ORAL 05/25/20 21:00 06/24/20 20:59 06/16/20 22:07 Quetiapine Fumarate (SEROqueL) 50 mg Q12HR ORAL 06/15/20 09:00 07/24/20 20:59 06/17/20 10:10 Laboratory Tests 06/17/20 09:25: Sodium Level 138, Potassium Level 4.1, Chloride Level 104, Carbon Dioxide Level 29, Anion Gap 6, Blood Urea Nitrogen 25H, Creatinine 1.0, Estimat Glomerular Filtration Rate 53.3, Glucose Level 125H, Calcium Level 8.9, Phosphorus Level 2.8, Magnesium Level 2.0, Total Bilirubin 0.5, Aspartate Amino Transf (AST/SGOT) 13L, Alanine Aminotransferase (ALT/SGPT) 9L, Alkaline Phosphatase 39L, Total Protein 6.8, Albumin 2.9L, Globulin 3.9, Albumin/Globulin Ratio 0.7L Height (Feet): 5 Height (Inches): 3.00 Weight (Pounds): 183 General Appearance: no apparent distress Cardiovascular: normal rate Respiratory/Chest: decreased breath sounds Abdomen: soft Bryan Ochoa MD Jun 17, 2020 14:23
--- NOTE | 2020-06-17 14:51 | Surgery Progress Note ---
Surgery Progress Note Subjective Additional Comments labs improved covid noted d/c planning Objective Last 24 Hour Vital Signs Date Time Temp Pulse Resp B/P (MAP) Pulse Ox O2 Delivery O2 Flow Rate FiO2 06/17/20 12:00 69 06/17/20 12:00 96.6 81 20 128/69 (88) 95 06/17/20 09:00 Room Air 06/17/20 08:00 68 06/17/20 08:00 96.7 89 18 122/61 (81) 94 06/17/20 04:00 97.5 64 18 103/36 (58) 94 06/17/20 04:00 69 06/17/20 00:00 60 06/17/20 00:00 97.9 63 18 113/32 (59) 96 06/16/20 21:00 Room Air 06/16/20 20:00 98.1 71 18 113/36 (61) 99 06/16/20 20:00 75 06/16/20 19:30 95 Nasal Cannula 3.0 32 06/16/20 16:00 97.2 70 18 101/42 (61) 95 06/16/20 16:00 72 I&O Intake and Output 06/16/20 06/17/20 19:00 07:00 Intake Total 360 ml 150 ml Output Total 120 ml Balance 240 ml 150 ml Intake Oral 360 ml 150 ml Output Urine Total 120 ml # Voids 2 1 Dressing: saturated Cardiovascular: RSR Respiratory: decreased breath sounds Abdomen: soft, non-tender, present bowel sounds, non-distended Extremities: no tenderness, no cyanosis Laboratory Tests Test 06/17/20 09:25 Sodium Level 138 MMOL/L (136-145) Potassium Level 4.1 MMOL/L (3.5-5.1) Chloride Level 104 MMOL/L (98-107) Carbon Dioxide Level 29 MMOL/L (21-32) Anion Gap 6 mmol/L (5-15) Blood Urea Nitrogen 25 mg/dL (7-18) H Creatinine 1.0 MG/DL (0.55-1.30) Estimat Glomerular Filtration Rate 53.3 mL/min (>60) Glucose Level 125 MG/DL (74-106) H Calcium Level 8.9 MG/DL (8.5-10.1) Phosphorus Level 2.8 MG/DL (2.5-4.9) Magnesium Level 2.0 MG/DL (1.8-2.4) Total Bilirubin 0.5 MG/DL (0.2-1.0) Aspartate Amino Transf (AST/SGOT) 13 U/L (15-37) L Alanine Aminotransferase (ALT/SGPT) 9 U/L (12-78) L Alkaline Phosphatase 39 U/L (46-116) L Total Protein 6.8 G/DL (6.4-8.2) Albumin 2.9 G/DL (3.4-5.0) L Globulin 3.9 g/dL Albumin/Globulin Ratio 0.7 (1.0-2.7) L Plan Problems: (1) Anemia (2) Hypercapnic respiratory failure Assessment & Plan: respiratory insufficiency requiring prolonged ventilatory support unable to wean vent safely after multiple attempts discussed with pcp. discussed with pulm discussed with patient guardian. patient unable to consent. no nok or poa. given critical care and condition not recommended to await court decision which during pandemic can take long time. medically necessary to proceed with trach in patients best interest. self extubated will monitor DAILY ESTIMATED NEEDS: Needs based on Critical care, 70kg abw 22-28 kcals/kg 6309-4483 total kcals 1.2-2 g protein/kg 84-140 g total protein 20-25 mL/kg 7150-5139 total fluid mLs NUTRITION DIAGNOSIS: Swallowing difficulty r/t respiratory status as evidenced by pt orally intubated, was pending trach placement, s/p self-extubation on 05/22, now on texture modified diet. CURRENT DIET:REGULAR, puree w/ NTL PO DIET RECOMMENDATIONS: Maintain liberalized REGULAR diet/ texture per HEALTHCARE CONSULTANT ADDITIONAL RECOMMENDATIONS: 1) Calibrated bed scale wts 2) Rec bowel regimen -> now added 3) Monitor lytes, replete as needed 4) HEALTHCARE CONSULTANT f/up regarding texture clarification 5) Monitor PO intake and tolerance Ensure Enlive TID w/ meals w/ 3rd Ensure as pm snack to prevent am hypoglycemia (3) COVID-19 Assessment & Plan: ++ improving repeat (4) COPD (chronic obstructive pulmonary disease) (5) Psychosis (6) Renal failure (ARF), acute on chronic (7) CHF exacerbation (8) Hypoxia (9) Hypocalcemia (10) Bradycardia (11) Dyspnea (12) Dyspnea (13) Respiratory distress (14) Hyperlipidemia (15) Hypothyroidism (16) Hypothyroidism (17) Obese (18) Psychosis (19) Respiratory failure (20) Pneumonia (21) Acute and chronic respiratory failure (22) Diabetes mellitus type 2 in nonobese (23) COVID-19 Assessment & Plan: right arm mass noted seems like small residual hematoma from prior IV line vs infiltration no bleeding no signs of infection no pain will monitor (24) Anemia (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
--- NOTE | 2020-06-17 15:21 | Anethesia Preoperative Eval ---
Anesthesia Pre-op PMH/ROS General Date of Evaluation: Jun 17, 2020 Time of Evaluation: 15:17 Anesthesiologist: Chandni ASA Score: ASA 4 Mallampati Score Class I : Soft palate, uvula, fauces, pillars visible Class II: Soft palate, uvula, fauces visible Class III: Soft palate, base of uvula visible Class IV: Only hard plate visible Mallampati Classification: Class III Surgeon: Randi Diagnosis: SSS Surgical Procedure: Pacemaker placement Anesthesia History: none Social History: smoking - h/o Allergies: Coded Allergies: LITHIUM (Verified Allergy, Unknown, 02/07/19) Patient NPO?: Yes Past Medical History Cardiovascular: Reports: HTN, valve dz, other - CHF Pulmonary: Reports: COPD; Denies: asthma, KAT, other Gastrointestinal/Genitourinary: Reports: GERD, CRI; Denies: ESRD, other Neurologic/Psychiatric: Reports: dementia, other - schizophrenia; Denies: CVA, depression/anxiety, TIA Endocrine: Reports: DM, hypothyroidism, steroids HEENT: Denies: cataract (L), cataract (R), glaucoma, [place] (L), [place] (R), other Hematology/Immune: Reports: anemia, other - pancytopenia; Denies: DVT, bleeding disorder Musculoskeletal/Integumentary: Reports: OA; Denies: RA, DJD, DDD, edema, other Other: obesity PMH Narrative: as above PSxH Narrative: See H&P Anesthesia Pre-op Phys. Exam Physician Exam Last Vital Signs Date Time Temp Pulse Resp B/P (MAP) Pulse Ox O2 Delivery O2 Flow Rate FiO2 06/17/20 12:00 69 06/17/20 12:00 96.6 20 128/69 (88) 95 06/17/20 09:00 Room Air 06/16/20 19:30 3.0 32 Constitutional: NAD Neurologic: other - unable to obtaine Cardiovascular: RRR Respiratory: other - diminished breath sounds bilaterally Airway Exam Mallampati Score: Class III MO: limited Neck: stiff ROM: limited Teeth: missing Dentures: no upper, no lower Anesthesia Pre-op A/P Labs Chemistry Test 06/17/20 09:25 Sodium Level 138 MMOL/L (136-145) Potassium Level 4.1 MMOL/L (3.5-5.1) Chloride Level 104 MMOL/L (98-107) Carbon Dioxide Level 29 MMOL/L (21-32) Anion Gap 6 mmol/L (5-15) Blood Urea Nitrogen 25 mg/dL (7-18) H Creatinine 1.0 MG/DL (0.55-1.30) Estimat Glomerular Filtration Rate 53.3 mL/min (>60) Glucose Level 125 MG/DL (74-106) H Calcium Level 8.9 MG/DL (8.5-10.1) Phosphorus Level 2.8 MG/DL (2.5-4.9) Magnesium Level 2.0 MG/DL (1.8-2.4) Total Bilirubin 0.5 MG/DL (0.2-1.0) Aspartate Amino Transf (AST/SGOT) 13 U/L (15-37) L Alanine Aminotransferase (ALT/SGPT) 9 U/L (12-78) L Alkaline Phosphatase 39 U/L (46-116) L Total Protein 6.8 G/DL (6.4-8.2) Albumin 2.9 G/DL (3.4-5.0) L Globulin 3.9 g/dL Albumin/Globulin Ratio 0.7 (1.0-2.7) L Pradip Tariq MD Jun 17, 2020 15:20
[2020-06-17 16:00] VITALS: BP 125/93
--- NOTE | 2020-06-17 18:13 | General Progress Note ---
Subjective Allergies: Coded Allergies: LITHIUM (Verified Allergy, Unknown, 02/07/19) Subjective above noted feels OK no abdominal complaints for pacemaker tomorrow Objective Last 24 Hour Vital Signs Date Time Temp Pulse Resp B/P (MAP) Pulse Ox O2 Delivery O2 Flow Rate FiO2 06/17/20 12:00 69 06/17/20 12:00 96.6 81 20 128/69 (88) 95 06/17/20 09:00 Room Air 06/17/20 08:44 94 Room Air 21 06/17/20 08:00 68 06/17/20 08:00 96.7 89 18 122/61 (81) 94 06/17/20 04:00 97.5 64 18 103/36 (58) 94 06/17/20 04:00 69 06/17/20 00:00 60 06/17/20 00:00 97.9 63 18 113/32 (59) 96 06/16/20 21:00 Room Air 06/16/20 20:00 98.1 71 18 113/36 (61) 99 06/16/20 20:00 75 06/16/20 19:30 95 Nasal Cannula 3.0 32 Intake and Output 06/16/20 06/17/20 19:00 07:00 Intake Total 360 ml 150 ml Output Total 120 ml Balance 240 ml 150 ml Intake Oral 360 ml 150 ml Output Urine Total 120 ml # Voids 2 1 Laboratory Tests 06/17/20 09:25: Sodium Level 138, Potassium Level 4.1, Chloride Level 104, Carbon Dioxide Level 29, Anion Gap 6, Blood Urea Nitrogen 25H, Creatinine 1.0, Estimat Glomerular Filtration Rate 53.3, Glucose Level 125H, Calcium Level 8.9, Phosphorus Level 2.8, Magnesium Level 2.0, Total Bilirubin 0.5, Aspartate Amino Transf (AST/SGOT) 13L, Alanine Aminotransferase (ALT/SGPT) 9L, Alkaline Phosphatase 39L, Total Protein 6.8, Albumin 2.9L, Globulin 3.9, Albumin/Globulin Ratio 0.7L Height (Feet): 5 Height (Inches): 3.00 Weight (Pounds): 183 Objective WDWN WW NCAT CTA RR abd soft no edema Assessment/Plan Status: progressing, unchanged, deteriorating Assessment/Plan: Assessment/Plan (1) Hypertension (2) Schizophrenia (3) Hyperlipidemia (4) Parkinson disease (5) Anemia (6) Obese (7) COVID (+) (8) Hypoxia (9) arrhythmia Recommendations PPI BID Follow H&H Transfuse to keep Hg>7.0 po as tolerated GI procedures at a later date, if needed bowel regimen pacemaker placement in Aria Chicas MD Jun 17, 2020 18:12
[2020-06-17 20:00] VITALS: BP 107/44
--- NOTE | 2020-06-17 20:02 | Psychiatric Progress Note ---
Psychiatry Progress Note Psychiatry Progress Note Subjective the pt has waxing and waning o consciousness on restraints episodes agitation confused Medications Current Medications Medications (Trade) Dose Ordered Sig/Angie Route PRN Reason Start Time Stop Time Status Last Admin Dose Admin Acetaminophen (Tylenol) 650 mg Q6H PRN NG Fever >100.5 06/12/20 08:00 07/12/20 07:59 Acetaminophen (Tylenol) 650 mg Q6H PRN NG Mild Pain (Pain Scale 1-3) 06/12/20 08:00 07/12/20 07:59 Chlorhexidine Gluconate (Ruba-Hex 2%) 1 applic DAILY@1999 TOPIC 06/12/20 20:00 09/10/20 19:59 06/16/20 22:07 Clonidine HCl (Catapres Tab) 0.1 mg Q4H PRN ORAL sbp>170 05/11/20 17:15 08/09/20 17:14 Docusate Sodium (Colace) 100 mg TWICE A DAY ORAL 06/05/20 09:00 07/05/20 08:59 06/17/20 18:21 Furosemide (Lasix) 40 mg DAILY ORAL 06/09/20 09:00 07/09/20 08:59 06/17/20 10:14 Haloperidol Lactate (Haldol) 5 mg Q6H PRN IM Agitation 05/13/20 20:45 06/27/20 20:44 05/28/20 02:40 Heparin Sodium (Porcine) (Heparin 5000 units/ml) 5,000 units EVERY 12 HOURS SUBQ 05/25/20 21:00 07/09/20 20:59 06/17/20 10:11 Lactulose (Cephulac) 20 gm THREE TIMES A DAY ORAL 06/08/20 18:00 07/08/20 17:59 06/17/20 18:21 Lansoprazole (Prevacid) 30 mg BID ORAL 06/05/20 18:00 07/05/20 17:59 06/17/20 18:21 Levothyroxine Sodium (Synthroid) 50 mcg DAILY@0630 ORAL 06/13/20 06:30 07/13/20 06:29 06/17/20 06:41 Polyethylene Glycol (Miralax) 17 gm BEDTIME ORAL 05/25/20 21:00 06/24/20 20:59 06/16/20 22:07 Quetiapine Fumarate (SEROqueL) 50 mg Q12HR ORAL 06/15/20 09:00 07/24/20 20:59 06/17/20 10:10 Neurological/Psychiatric: Reports: anxiety, emotional problems; Denies: no symptoms, depressed, headache, numbness, paresthesia, pre-existing deficit, seizure, tingling, tremors, weakness, other Allergies: Coded Allergies: LITHIUM (Verified Allergy, Unknown, 02/07/19) Objective Data Height (Feet): 5 Height (Inches): 3.00 Weight (Pounds): 183 General Appearance: no apparent distress Additional Comments: waxing and waning consciousness. Disoriented. Mood is neutral to agitation. Affect is flat. Thought process, there is paucity of thought process. Thought content, no suicidal or homicidal ideation. Cognition is impaired. Insight and judgment is impaired. Assessment/Plan Bon Wier I: Bon Wier I Acute toxic encephalopathy. Schizophrenia. Bon Wier II Deferred. Bon Wier III COVID-19. Bon Wier IV Low. Bon Wier V 20 PLAN: 1. Discontinue the IV Haldol. 2. Start the patient on Haldol IM. 3. The patient benefits from bilateral soft restraints. 4. Provide the patient with reality orientation. 5. Discussed with the nurse. Status: progressing, unchanged, deteriorating Status Narrative Bon Wier I Acute toxic encephalopathy. Schizophrenia. Bon Wier II Deferred. Bon Wier III COVID-19. Bon Wier IV Low. Bon Wier V 20 PLAN: 1. Discontinue the IV Haldol. 2. Start the patient on Haldol IM. 3. The patient benefits from bilateral soft restraints. 4. Provide the patient with reality orientation. 5. Discussed with the nurse. Assessment/Plan: Bon Wier I Acute toxic encephalopathy. Schizophrenia. Bon Wier II Deferred. Bon Wier III COVID-19. Bon Wier IV Low. Bon Wier V 20 PLAN: 1. Discontinue the IV Haldol. 2. Start the patient on Haldol IM. 3. The patient benefits from bilateral soft restraints. 4. Provide the patient with reality orientation. 5. Discussed with the nurse. Kiana Hernandez MD Jun 17, 2020 20:02
--- NOTE | 2020-06-17 20:51 | General Progress Note ---
Subjective ROS Limited/Unobtainable: Yes Allergies: Coded Allergies: LITHIUM (Verified Allergy, Unknown, 02/07/19) Objective Last 24 Hour Vital Signs Date Time Temp Pulse Resp B/P (MAP) Pulse Ox O2 Delivery O2 Flow Rate FiO2 06/17/20 20:00 98.4 71 20 107/44 (65) 96 06/17/20 19:37 95 Room Air 21 06/17/20 16:00 98.1 67 20 125/93 (104) 95 06/17/20 16:00 70 06/17/20 12:00 69 06/17/20 12:00 96.6 81 20 128/69 (88) 95 06/17/20 09:00 Room Air 06/17/20 08:44 94 Room Air 21 06/17/20 08:00 68 06/17/20 08:00 96.7 89 18 122/61 (81) 94 06/17/20 04:00 97.5 64 18 103/36 (58) 94 06/17/20 04:00 69 06/17/20 00:00 60 06/17/20 00:00 97.9 63 18 113/32 (59) 96 06/16/20 21:00 Room Air Intake and Output 06/16/20 06/17/20 19:00 07:00 Intake Total 360 ml 150 ml Output Total 120 ml Balance 240 ml 150 ml Intake Oral 360 ml 150 ml Output Urine Total 120 ml # Voids 2 1 Laboratory Tests 06/17/20 09:25: Sodium Level 138, Potassium Level 4.1, Chloride Level 104, Carbon Dioxide Level 29, Anion Gap 6, Blood Urea Nitrogen 25H, Creatinine 1.0, Estimat Glomerular Filtration Rate 53.3, Glucose Level 125H, Calcium Level 8.9, Phosphorus Level 2.8, Magnesium Level 2.0, Total Bilirubin 0.5, Aspartate Amino Transf (AST/SGOT) 13L, Alanine Aminotransferase (ALT/SGPT) 9L, Alkaline Phosphatase 39L, Total Protein 6.8, Albumin 2.9L, Globulin 3.9, Albumin/Globulin Ratio 0.7L Height (Feet): 5 Height (Inches): 3.00 Weight (Pounds): 183 Assessment/Plan Problem List: (1) Anemia ICD Codes: D64.9 - Anemia, unspecified SNOMED: 620427001 (2) Hypercapnic respiratory failure ICD Codes: J96.92 - Respiratory failure, unspecified with hypercapnia SNOMED: 433400361 (3) COVID-19 ICD Codes: U07.1 - COVID-19 SNOMED: 711981548 (4) COPD (chronic obstructive pulmonary disease) ICD Codes: J44.9 - Chronic obstructive pulmonary disease, unspecified SNOMED: 95502045 (5) Psychosis ICD Codes: F29 - Unspecified psychosis not due to a substance or known physiological condition SNOMED: 18422235 (6) Hypoxia ICD Codes: R09.02 - Hypoxemia SNOMED: 068835970 (7) Renal failure (ARF), acute on chronic ICD Codes: N17.9 - Acute kidney failure, unspecified; N18.9 - Chronic kidney disease, unspecified SNOMED: 750541471 (8) CHF exacerbation ICD Codes: I50.9 - Heart failure, unspecified SNOMED: 304674989, [id number] Status: progressing, unchanged, deteriorating Assessment/Plan: s/p bradycardia and pause according to dr pepe pt needs to get pacemaker due to her bradycardia and pause for life sustaining device unable to consent azotemia copd pna chf Dani Perera MD Jun 17, 2020 20:51
[2020-06-17] MEDS: Dyna-Hex 2% Top Sol 2oz TOPIC SCH (20:58)
[2020-06-17] MEDS: Miralax 17gm pkt ORAL SCH (20:58)
[2020-06-18] VITALS (11 sets, daily range): BP systolic 109–164; BP diastolic 35–59
--- NOTE | 2020-06-18 06:26 | Hematology/Onc Progress Note ---
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 ( combination of moderate aortic regurgitation and severe mitral regurgitation) --> diuresis as per cards --> lasix last time # Severe ascending aortic dilatation --> per Dr Keke campbell --> meds reviewed # Hypertension # Parkinson disease # Hyperlipidemia # Hypothyroidism # Dementia # Obesity # Schizophrenia --> as per [facility] --> restraints # Dvt ppx heparin sq Appreciate independent consultant care and alexei Rn Subjective HEENT: Denies: no symptoms, eye pain, blurred vision, tearing, double vision, ear pain, ear discharge, nose pain, nose congestion, throat pain, throat swelling, mouth pain, mouth swelling, other Cardiovascular: Denies: no symptoms, chest pain, edema, irregular heart rate, lightheadedness, palpitations, syncope, other Respiratory: Denies: no symptoms, cough, shortness of breath, SOB with excertion, SOB at rest, sputum, wheezing, other Gastrointestinal/Abdominal: Denies: no symptoms, abdomen distended, abdominal pain, black stools, tarry stools, blood in stool, constipated, diarrhea, difficulty swallowing, nausea, poor appetite, poor fluid intake, rectal bleeding, vomiting, other Genitourinary: Denies: no symptoms, burning, discharge, frequency, flank pain, hematuria, incontinence, pain, urgency, other Neurologic/Psychiatric: Denies: no symptoms, anxiety, depressed, emotional problems, headache, numbness, paresthesia, pre-existing deficit, seizure, tingling, tremors, weakness, other Endocrine: Denies: no symptoms, excessive sweating, flushing, intolerance to cold, intolerance to heat, increased hunger, increased thirst, increased urine, unexplained weight gain, unexplained weight loss, other Hematologic/Lymphatic: Denies: no symptoms, anemia, easy bleeding, easy bruising, adenopathy, other Allergies: Coded Allergies: LITHIUM (Verified Allergy, Unknown, 02/07/19) Subjective 06/01 nonrebreather, 15L, some mild pain in back, chest, no night sweats 06/02 remains on nonrebreather, labs are noted, no bleeding or night sweats 06/03 labs reviewed, meds noted, nonrebreather, c02 was elevated, to inform pulm 06/04 labs reviewed, meds noted, on NR, no night sweats, meds noted 06/05 is on 15lnc venturi mask, is covid iso, labs noted 06/06 labs reviewed, on venturi mask, on b/l soft wrists, meds noted 06/08 labs reviewed, on nc, no bleeding, with picc line, cbc ordered 06/09 labs reviewed, confused, on 3l nc, no night sweats, meds reviewed 06/10 is off restraints, left picc has been removed, no new changes 06/11 remains confused, is to have picc placed, per public guardian 06/12 wrist restraints, very agitated overnight, noncompliant, labs reviewed 06/13 labs noted, no bleedig, hgb remains low, cbc is pending 06/14: labs reviewed, on restraints, 02 no resp distress 06/15: no acute distress afebrile. hgb 9.2 06/16 labs reviewed, meds noted, no hemolysis, no bleeding 06/17 pacemaker placement is pending, labs reviewed, no new events 06/18 labs noted, awake, alert is in restraints, labs pending Objective Objective Current Medications Medications (Trade) Dose Ordered Sig/Angie Route PRN Reason Start Time Stop Time Status Last Admin Dose Admin Acetaminophen (Tylenol) 650 mg Q6H PRN NG Fever >100.5 06/12/20 08:00 07/12/20 07:59 Acetaminophen (Tylenol) 650 mg Q6H PRN NG Mild Pain (Pain Scale 1-3) 06/12/20 08:00 07/12/20 07:59 Chlorhexidine Gluconate (Ruba-Hex 2%) 1 applic DAILY@2000 TOPIC 06/12/20 20:00 09/10/20 19:59 06/17/20 20:58 Clonidine HCl (Catapres Tab) 0.1 mg Q4H PRN ORAL sbp>170 05/11/20 17:15 08/09/20 17:14 Docusate Sodium (Colace) 100 mg TWICE A DAY ORAL 06/05/20 09:00 07/05/20 08:59 06/17/20 18:21 Furosemide (Lasix) 40 mg DAILY ORAL 06/09/20 09:00 07/09/20 08:59 06/17/20 10:14 Haloperidol Lactate (Haldol) 5 mg Q6H PRN IM Agitation 05/13/20 20:45 06/27/20 20:44 05/28/20 02:40 Heparin Sodium (Porcine) (Heparin 5000 units/ml) 5,000 units EVERY 12 HOURS SUBQ 05/25/20 21:00 07/09/20 20:59 06/17/20 21:07 Lactulose (Cephulac) 20 gm THREE TIMES A DAY ORAL 06/08/20 18:00 07/08/20 17:59 06/17/20 18:21 Lansoprazole (Prevacid) 30 mg BID ORAL 06/05/20 18:00 07/05/20 17:59 06/17/20 18:21 Levothyroxine Sodium (Synthroid) 50 mcg DAILY@0630 ORAL 06/13/20 06:30 07/13/20 06:29 06/17/20 06:41 Polyethylene Glycol (Miralax) 17 gm BEDTIME ORAL 05/25/20 21:00 06/24/20 20:59 06/17/20 20:58 Quetiapine Fumarate (SEROqueL) 50 mg Q12HR ORAL 06/15/20 09:00 07/24/20 20:59 06/17/20 20:58 Last 24 Hour Vital Signs Date Time Temp Pulse Resp B/P (MAP) Pulse Ox O2 Delivery O2 Flow Rate FiO2 06/18/20 04:00 67 06/18/20 04:00 97.7 68 18 109/35 (59) 96 06/18/20 00:00 99.4 72 18 113/39 (63) 93 06/18/20 00:00 68 06/17/20 21:00 Room Air 06/17/20 20:00 68 06/17/20 20:00 98.4 71 20 107/44 (65) 96 06/17/20 19:37 95 Room Air 21 06/17/20 16:00 98.1 67 20 125/93 (104) 95 06/17/20 16:00 70 06/17/20 12:00 69 06/17/20 12:00 96.6 81 20 128/69 (88) 95 06/17/20 09:00 Room Air 06/17/20 08:44 94 Room Air 06/17/20 08:00 68 06/17/20 08:00 96.7 89 18 122/61 (81) 94 06/17/20 04:00 97.5 64 18 103/36 (58) 94 06/17/20 04:00 69 06/17/20 00:00 60 06/17/20 00:00 97.9 63 18 113/32 (59) 96 06/16/20 21:00 Room Air 06/16/20 20:00 98.1 71 18 113/36 (61) 99 06/16/20 20:00 75 06/16/20 19:30 95 Nasal Cannula 3.0 32 06/16/20 16:00 97.2 70 18 101/42 (61) 95 06/16/20 16:00 72 06/16/20 12:00 65 06/16/20 12:00 97.2 72 20 99/69 (79) 96 06/16/20 08:00 Room Air 06/16/20 08:00 97.0 69 18 102/40 (60) 95 06/16/20 08:00 68 Intake and Output 06/17/20 06/18/20 19:00 07:00 Intake Total 350 ml Balance 350 ml Intake Oral 350 ml # Voids 2 2 Labs Test 06/15/20 09:20 06/16/20 10:25 06/17/20 09:25 White Blood Count 6.5 K/UL (4.8-10.8) 6.1 K/UL (4.8-10.8) Red Blood Count 2.75 M/UL (4.20-5.40) 2.78 M/UL (4.20-5.40) Hemoglobin 9.2 G/DL (12.0-16.0) 9.2 G/DL (12.0-16.0) Hematocrit 26.9 % (37.0-47.0) 27.5 % (37.0-47.0) Mean Corpuscular Volume 98 FL (80-99) 99 FL (80-99) Mean Corpuscular Hemoglobin 33.5 PG (27.0-31.0) 33.1 PG (27.0-31.0) Mean Corpuscular Hemoglobin Concent 34.3 G/DL (32.0-36.0) 33.5 G/DL (32.0-36.0) Red Cell Distribution Width 18.1 % (11.6-14.8) 17.8 % (11.6-14.8) Platelet Count 290 K/UL (150-450) 286 K/UL (150-450) Mean Platelet Volume 6.2 FL (6.5-10.1) 6.0 FL (6.5-10.1) Neutrophils (%) (Auto) 58.6 % (45.0-75.0) 58.5 % (45.0-75.0) Lymphocytes (%) (Auto) 31.0 % (20.0-45.0) 31.3 % (20.0-45.0) Monocytes (%) (Auto) 6.2 % (1.0-10.0) 6.0 % (1.0-10.0) Eosinophils (%) (Auto) 3.3 % (0.0-3.0) 2.7 % (0.0-3.0) Basophils (%) (Auto) 0.8 % (0.0-2.0) 1.4 % (0.0-2.0) Sodium Level 138 MMOL/L (136-145) Potassium Level 4.1 MMOL/L (3.5-5.1) Chloride Level 104 MMOL/L (98-107) Carbon Dioxide Level 29 MMOL/L (21-32) Anion Gap 6 mmol/L (5-15) Blood Urea Nitrogen 25 mg/dL (7-18) Creatinine 1.0 MG/DL (0.55-1.30) Estimat Glomerular Filtration Rate 53.3 mL/min (>60) Glucose Level 125 MG/DL (74-106) Calcium Level 8.9 MG/DL (8.5-10.1) Phosphorus Level 2.8 MG/DL (2.5-4.9) Magnesium Level 2.0 MG/DL (1.8-2.4) Total Bilirubin 0.5 MG/DL (0.2-1.0) Aspartate Amino Transf (AST/SGOT) 13 U/L (15-37) Alanine Aminotransferase (ALT/SGPT) 9 U/L (12-78) Alkaline Phosphatase 39 U/L (46-116) Total Protein 6.8 G/DL (6.4-8.2) Albumin 2.9 G/DL (3.4-5.0) Globulin 3.9 g/dL Albumin/Globulin Ratio 0.7 (1.0-2.7) Height (Feet): 5 Height (Inches): 3.00 Weight (Pounds): 183 Objective Physical Exam: Vitals: reviewed General: NAD HEENT: nc, at Neck: supple Chest: decreased breath sounds bilaterally, crackles+++ 15L NRM Cardiovascular: RRR, no s3, s4 Abdomen: soft, nontender, nd Extremities: 1-2 + edema Neuro: nonverbal Frank Escobar MD Jun 18, 2020 06:26
[2020-06-18] MEDS: Lactulose 20gm/30ml UDC ORAL SCH ×4 (09:00→18:00)
[2020-06-18] MEDS: Heparin 5000 units/ml inj SUBQ SCH ×2 (09:00→21:00)
[2020-06-18] MEDS: Docusate 100mg/10ml Liq ORAL SCH ×3 (09:00→18:00)
[2020-06-18] MEDS: Furosemide 40mg tab ORAL SCH ×2 (09:00→09:05)
--- NOTE | 2020-06-18 09:42 | Pulmonology Progress Note ---
Subjective ROS Limited/Unobtainable: Yes Interval Events: none major reported per nursing Constitutional: Denies: fever HEENT: Repors: no symptoms Respiratory: Reports: no symptoms Cardiovascular: Reports: no symptoms Gastrointestinal/Abdominal: Reports: no symptoms Genitourinary: Reports: no symptoms Allergies: Coded Allergies: LITHIUM (Verified Allergy, Unknown, 02/07/19) Objective Last 24 Hour Vital Signs Date Time Temp Pulse Resp B/P (MAP) Pulse Ox O2 Delivery O2 Flow Rate FiO2 06/18/20 08:00 97.5 67 20 119/40 (66) 96 06/18/20 04:00 67 06/18/20 04:00 97.7 68 18 109/35 (59) 96 06/18/20 00:00 99.4 72 18 113/39 (63) 93 06/18/20 00:00 68 06/17/20 21:00 Room Air 06/17/20 20:00 68 06/17/20 20:00 98.4 71 20 107/44 (65) 96 06/17/20 19:37 95 Room Air 21 06/17/20 16:00 98.1 67 20 125/93 (104) 95 06/17/20 16:00 70 06/17/20 12:00 69 06/17/20 12:00 96.6 81 20 128/69 (88) 95 Intake and Output 06/17/20 06/18/20 19:00 07:00 Intake Total 350 ml Balance 350 ml Intake Oral 350 ml # Voids 2 2 Objective 06/18 no change; stable respiration; due for pacemaker implant today 06/17 no change 06/16 no change respiratory-ortega 06/15 no change 06/14 on RA; stable respiratory-ortega 06/11 no change 06/10 remains on room air; off isolation now 06/09 seen in tele; now saturating at 93-94% on room air 06/06 no change 06/05 now on 14L Ventimask saturating at high 90s 05/31 on Venturi mask saturating well 05/29/2020 now on 2 lpm NC saturating at 97%; in transfusion 05/28/2020 in SDU; currently on Venturi mask 14L FiO2 14L saturating well 05/27/2020 in SDU; s/p failed attempt at switching to NC due to patient noncompliance; currently saturating low-mid 90s when she is actually on Venturi mask 14L 05/26/2020 in SDU; keeps taking off her NRB and desats to 79-80% 05/24/2020 in ICUD; restless, saturating ok with NC 05/19/2020 Pt in ICU; full code General Appearance: no acute distress HEENT: normocephalic Respiratory: no respiratory distress, decreased breath sounds Cardiovascular: normal rate Abdomen: soft, non tender, other - obese Extremities: other - b/l 2+ pitting edema Neurologic: disoriented Current Medications Medications (Trade) Dose Ordered Sig/Angie Route PRN Reason Start Time Stop Time Status Last Admin Dose Admin Acetaminophen (Tylenol) 650 mg Q6H PRN NG Fever >100.5 06/12/20 08:00 07/12/20 07:59 Acetaminophen (Tylenol) 650 mg Q6H PRN NG Mild Pain (Pain Scale 1-3) 06/12/20 08:00 07/12/20 07:59 Chlorhexidine Gluconate (Ruba-Hex 2%) 1 applic DAILY@2000 TOPIC 06/12/20 20:00 09/10/20 19:59 06/17/20 20:58 Clonidine HCl (Catapres Tab) 0.1 mg Q4H PRN ORAL sbp>170 05/11/20 17:15 08/09/20 17:14 Docusate Sodium (Colace) 100 mg TWICE A DAY ORAL 06/05/20 09:00 07/05/20 08:59 06/17/20 18:21 Furosemide (Lasix) 40 mg DAILY ORAL 06/09/20 09:00 07/09/20 08:59 06/18/20 09:05 Haloperidol Lactate (Haldol) 5 mg Q6H PRN IM Agitation 05/13/20 20:45 06/27/20 20:44 05/28/20 02:40 Heparin Sodium (Porcine) (Heparin 5000 units/ml) 5,000 units EVERY 12 HOURS SUBQ 05/25/20 21:00 07/09/20 20:59 06/17/20 21:07 Lactulose (Cephulac) 20 gm THREE TIMES A DAY ORAL 06/08/20 18:00 07/08/20 17:59 06/17/20 18:21 Lansoprazole (Prevacid) 30 mg BID ORAL 06/05/20 18:00 07/05/20 17:59 06/18/20 09:05 Levothyroxine Sodium (Synthroid) 50 mcg DAILY@0630 ORAL 06/13/20 06:30 07/13/20 06:29 06/17/20 06:41 Polyethylene Glycol (Miralax) 17 gm BEDTIME ORAL 05/25/20 21:00 06/24/20 20:59 06/17/20 20:58 Quetiapine Fumarate (SEROqueL) 50 mg Q12HR ORAL 06/15/20 09:00 07/24/20 20:59 06/18/20 09:05 Assessment/Plan Assessment/Plan 1. Bilateral COVID-19 multilobar pneumonia. - s/p ETT removal - Afebrile - s/p Azithromycin, Ceftriaxone, dexamethasone, and remdesivir - CXR 05/31 Patchy bilateral airspace consolidations, consistent with multifocal infiltrate, similar in appearance to previous study from 05/30; Stable, small bilateral pleural effusions. - COVID-19 PCR 06/02 inconclusive result - COVID-19 PCR 06/04 positive - now off isolation - provide supplemental oxygen as needed 2. Hx of COPD. 3. Schizophrenia/psychosis - On haloperidol per Dr. Hernandez 4. Hypoxia. -Now on room air; saturating well - X-ray chest on 06/07 shows significantly improved bilateral pulmonary infiltrates - Now on oral Lasix 40 mg - off Diamox - recommend continued diuresis with ongoing BUN/Cr monitoring 5. Anemia; improved - Stool OB neg 6. SSS - scheduled for pacemaker implant today @1400 DVT ppx The care for this patient was discussed with my supervising physician Time spent for this case was approximately 31 minutes Trae Avilez Jun 18, 2020 09:42
--- NOTE | 2020-06-18 11:55 | Nephrology Progress Note ---
Assessment/Plan Problem List: (1) Renal failure (ARF), acute on chronic (2) Hypercapnic respiratory failure (3) CHF exacerbation (4) Anemia Assessment Azotemia/renal failure Acute respiratory failure most likely secondary to CHF, on mechanical ventilation History of COPD Hypertension Hyperlipemia Schizophrenia/psychosis Plan June 18: No labs drawn today. Clinically stable. Full code. Continue per consultants. June 17: Labs reviewed. Renal parameters stable. Continue per consultants. June 16: No CHEM panel drawn today. Will check it tomorrow. Continue per consultants. Patient full code. June 15: Labs reviewed. Low potassium addressed. Renal parameters stable. Continue per consultants. June 14: Labs reviewed. Low potassium replaced. Serum creatinine normalized. Continue per consultants. June 13: No labs drawn today. Patient clinically stable. Continue to monitor renal parameters. June 12: Lab reviewed. Renal parameters are stable. Continue per consultants. June 11: Labs reviewed. Low potassium noted and addressed. Continue per consultants. Continue to monitor renal parameters. June 10: No CHEM panel drawn today. Check lab tomorrow. Continue per consultants. On room air oxygen June 09: Labs reviewed. Renal parameters stable. Continue per current treatment plan. June 08: Labs reviewed. Low potassium addressed. Continue per consultants. June 07: Stable renal parameters. Continue per consultants. Overall stable. June 06: Status quo. Remains on Venturi mask. Labs reviewed. Renal parameters stable. Continue per consultants. June 05: Lethargic. On Venturi mask. Labs reviewed. Returning bicarb. Continue to monitor ABG and electrolytes. Low potassium addressed. June 04: Remains on Venturi mask. No can panel done today. ABG results reviewed. Continue per pulmonary. June 03: Poor respiratory status. ABG noted. Patient hypoxic. Renal parameters somewhat stable. Continue per pulmonary. June 02: Labs reviewed. Low phosphorus replaced. Patient has periodic severe bradycardia. Continue per cardiology. June 01: Labs reviewed. Low magnesium replaced. Renal parameters stable. Hemoglobin level reasonable. Continue per consultants. May 31: Labs reviewed. Abnormal electrolytes at rest. Hemoglobin higher. Discussed with DARREL Cooper. Continue per consultants. May 30: Lab reviewed. Potassium and phosphorus replaced. Hemoglobin higher after transfusion. Continue per consultants. May 29: Lab reviewed. Patient anemic. Electrolyte abnormalities reviewed and addressed. Continue per consultants. Remains stable from renal standpoint of view. May 28: Patient was not transfused despite of my order since yesterday. Will defer transfusion to PMD/quarter backer. Patient remains stable from renal standpoint of view. Continue per consultants. Discussed with Marlene nursing charge in [place]. May 27: Remains on Venturi mask. Labs reviewed. Abnormal electrolytes addressed. Hemoglobin low. Will transfuse 1 unit of packed RBCs today May 26: On Venturi mask. Labs reviewed. Abnormal electrolytes addressed. Continue per consultants and pulmonary support. May 25: On Venturi mask. Lethargic. No labs drawn today. Will monitor renal parameters. Per orders. May 24: Remains extubated. Will start on diet with high alert for possible aspiration. Continue to monitor renal parameters. May 23: Continues to be extubated. On nonrebreathing mask. Labs reviewed. Renal parameters stable. Discussed with RN. Continue per current management. May 22: Now extubated on nonrebreathing mask. Labs reviewed. Renal parameters stable. Abnormal electrolytes addressed. Discussed with RN. May 21: Remains intubated. Labs reviewed. Abnormal electrolytes addressed. Discussed with RN. May 20: Remains intubated. Abnormal electrolyte noted on today's lab results and addressed. Continue per consultants. May 19: Patient remains intubated. Labs reviewed. Abnormal electrolytes addressed. Continue per current management. May 18: Patient seen in ICU. Remains intubated. Weaning is being tried. Discussed with RN. Labs reviewed. Abnormal electrolyte addressed. Continue per consultants. May 17: Labs reviewed. Remains intubated. Stable from renal standpoint of view. Continue weaning. Discussed with RN. May 16: Labs reviewed. Remains intubated. Remains full code. Stable from renal standpoint of view. Abnormal electrolytes addressed. May 15: Labs reviewed. Renal parameters stable. Discussed with RN. Patient remains intubated on ventilator and full code. Continue per consultants. May 14: Labs reviewed. Discussed with RN. Abnormal electrolyte addressed. Continue per current management. Patient seen in ICU. Discussed with RN. Today's labs pending. Patient remains on 6 mics of dopamine. Pulmonary support Monitor intake and output Monitor electrolytes Continue per consultants Per orders Subjective ROS Limited/Unobtainable: No Constitutional: Reports: malaise Objective Objective Last 24 Hour Vital Signs Date Time Temp Pulse Resp B/P (MAP) Pulse Ox O2 Delivery O2 Flow Rate FiO2 06/18/20 09:00 Room Air 06/18/20 08:00 97.5 67 20 119/40 (66) 96 06/18/20 07:32 68 06/18/20 04:00 67 06/18/20 04:00 97.7 68 18 109/35 (59) 96 06/18/20 00:00 99.4 72 18 113/39 (63) 93 06/18/20 00:00 68 06/17/20 21:00 Room Air 06/17/20 20:00 68 06/17/20 20:00 98.4 71 20 107/44 (65) 96 06/17/20 19:37 95 Room Air 21 06/17/20 16:00 98.1 67 20 125/93 (104) 95 06/17/20 16:00 70 06/17/20 12:00 69 06/17/20 12:00 96.6 81 20 128/69 (88) 95 Intake and Output 06/17/20 06/18/20 19:00 07:00 Intake Total 350 ml Balance 350 ml Intake Oral 350 ml # Voids 2 2 Current Medications Medications (Trade) Dose Ordered Sig/Angie Route PRN Reason Start Time Stop Time Status Last Admin Dose Admin Acetaminophen (Tylenol) 650 mg Q6H PRN NG Fever >100.5 06/12/20 08:00 07/12/20 07:59 Acetaminophen (Tylenol) 650 mg Q6H PRN NG Mild Pain (Pain Scale 1-3) 06/12/20 08:00 07/12/20 07:59 Chlorhexidine Gluconate (Ruba-Hex 2%) 1 applic DAILY@1999 TOPIC 06/12/20 20:00 09/10/20 19:59 06/17/20 20:58 Clonidine HCl (Catapres Tab) 0.1 mg Q4H PRN ORAL sbp>170 05/11/20 17:15 08/09/20 17:14 Docusate Sodium (Colace) 100 mg TWICE A DAY ORAL 06/05/20 09:00 07/05/20 08:59 06/17/20 18:21 Furosemide (Lasix) 40 mg DAILY ORAL 06/09/20 09:00 07/09/20 08:59 06/17/20 10:14 Haloperidol Lactate (Haldol) 5 mg Q6H PRN IM Agitation 05/13/20 20:45 06/27/20 20:44 05/28/20 02:40 Heparin Sodium (Porcine) (Heparin 5000 units/ml) 5,000 units EVERY 12 HOURS SUBQ 05/25/20 21:00 07/09/20 20:59 06/17/20 21:07 Lactulose (Cephulac) 20 gm THREE TIMES A DAY ORAL 06/08/20 18:00 07/08/20 17:59 06/17/20 18:21 Lansoprazole (Prevacid) 30 mg BID ORAL 06/05/20 18:00 07/05/20 17:59 06/17/20 18:21 Levothyroxine Sodium (Synthroid) 50 mcg DAILY@0630 ORAL 06/13/20 06:30 07/13/20 06:29 06/17/20 06:41 Polyethylene Glycol (Miralax) 17 gm BEDTIME ORAL 05/25/20 21:00 06/24/20 20:59 06/17/20 20:58 Quetiapine Fumarate (SEROqueL) 50 mg Q12HR ORAL 06/15/20 09:00 07/24/20 20:59 06/17/20 20:58 Height (Feet): 5 Height (Inches): 3.00 Weight (Pounds): 183 General Appearance: no apparent distress Cardiovascular: normal rate Respiratory/Chest: decreased breath sounds Abdomen: soft Bryan Ochoa MD Jun 18, 2020 11:55
[2020-06-18] MEDS ORDERED: Lidocaine 1% Plain 30 ml INJ ONE (12:32)
[2020-06-18] MEDS ORDERED: Isovue-M 300 15ml INJ ONE (12:32)
--- NOTE | 2020-06-18 12:35 | Surgery Progress Note ---
Surgery Progress Note Subjective Additional Comments Patient seen and examined bedside. No acute events. Resting comfortably. Labs noted. Exam stable. No complaints at this time. Imaging reviewed micro revi ewed afebrile hemodynamic stable Objective Last 24 Hour Vital Signs Date Time Temp Pulse Resp B/P (MAP) Pulse Ox O2 Delivery O2 Flow Rate FiO2 06/18/20 09:00 Room Air 06/18/20 08:00 97.5 67 20 119/40 (66) 96 06/18/20 07:32 68 06/18/20 04:00 67 06/18/20 04:00 97.7 68 18 109/35 (59) 96 06/18/20 00:00 99.4 72 18 113/39 (63) 93 06/18/20 00:00 68 06/17/20 21:00 Room Air 06/17/20 20:00 68 06/17/20 20:00 98.4 71 20 107/44 (65) 96 06/17/20 19:37 95 Room Air 21 06/17/20 16:00 98.1 67 20 125/93 (104) 95 06/17/20 16:00 70 I&O Intake and Output 06/17/20 06/18/20 19:00 07:00 Intake Total 350 ml Balance 350 ml Intake Oral 350 ml # Voids 2 2 Dressing: saturated Cardiovascular: RSR Respiratory: decreased breath sounds Abdomen: soft, non-tender, present bowel sounds Extremities: no tenderness, no cyanosis Plan Problems: (1) Anemia (2) Hypercapnic respiratory failure Assessment & Plan: respiratory insufficiency requiring prolonged ventilatory support unable to wean vent safely after multiple attempts discussed with pcp. discussed with pulm discussed with patient guardian. patient unable to consent. no nok or poa. given critical care and condition not recommended to await court decision which during pandemic can take long time. medically necessary to proceed with trach in patients best interest. self extubated will monitor DAILY ESTIMATED NEEDS: Needs based on Critical care, 70kg abw 22-28 kcals/kg [id number] total kcals 1.2-2 g protein/kg 84-140 g total protein 20-25 mL/kg [id number] total fluid mLs NUTRITION DIAGNOSIS: Swallowing difficulty r/t respiratory status as evidenced by pt orally intubated, was pending trach placement, s/p self-extubation on 05/22, now on texture modified diet. CURRENT DIET:REGULAR, puree w/ NTL PO DIET RECOMMENDATIONS: Maintain liberalized REGULAR diet/ texture per [employer]BILE [employer]ODUCT [employer]NAGER ADDITIONAL RECOMMENDATIONS: 1) Calibrated bed scale wts 2) Rec bowel regimen -> now added 3) Monitor lytes, replete as needed 4) MOBI[employer] PRODUCT MANAGER f/up regarding texture clarification 5) Monitor PO intake and tolerance Ensure Enlive TID w/ meals w/ 3rd Ensure as pm snack to prevent am hypoglycemia (3) COVID-19 Assessment & Plan: ++ improving repeat (4) COPD (chronic obstructive pulmonary disease) (5) Psychosis (6) Renal failure (ARF), acute on chronic (7) CHF exacerbation (8) Hypoxia (9) Hypocalcemia (10) Bradycardia (11) Dyspnea (12) Dyspnea (13) Respiratory distress (14) Hyperlipidemia (15) Hypothyroidism (16) Hypothyroidism (17) Obese (18) Psychosis (19) Respiratory failure (20) Pneumonia (21) Acute and chronic respiratory failure (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
[2020-06-18] MEDS ORDERED: fentaNYL 100 mcg/2 mL IV PRN (14:00)
[2020-06-18] MEDS ORDERED: Meperidine 25mg/1ml Inj (FOR RIGORS ONLY) IV PRN (14:00)
[2020-06-18] MEDS ORDERED: DiphenhydrAMINE 50mg/ml Inj IVP PRN (14:00)
[2020-06-18] MEDS ORDERED: LORazepam Inj 2mg/ml 1ml IV PRN (14:00)
[2020-06-18] MEDS ORDERED: LR 1000ml 1,000 ML IVLG SCH (14:00)
[2020-06-18] MEDS ORDERED: Sterile Water Irrig 1000ml IRRIG ONE (14:00)
[2020-06-18] MEDS ORDERED: Lidocaine 1% MPF 10mg/ml 5ml ONE (14:00)
[2020-06-18] MEDS ORDERED: Atropine Sulfate 0.4mg/ml inj IVP PRN (14:00)
[2020-06-18] MEDS ORDERED: Hydromorphone 0.5mg/0.5ml inj IVP PRN (14:00)
[2020-06-18] MEDS ORDERED: HYDROcodone/Acetamin 5/325 tab ORAL PRN (14:00)
[2020-06-18] MEDS ORDERED: NS Irrig 1000ml ONE (14:00)
[2020-06-18] MEDS ORDERED: LR 1000ml ONE (14:00)
[2020-06-18] MEDS ORDERED: HYDROcodone/Acetamin 7.5/325 tab ORAL PRN (14:00)
[2020-06-18] MEDS ORDERED: oxyCODONE HCL/Acetaminophen 5/325mg ORAL PRN (14:00)
[2020-06-18] MEDS ORDERED: Midazolam 2mg/2ml Inj IVP PRN (14:00)
--- NOTE | 2020-06-18 14:00 | Immediate Post-Op Evaluation ---
Immediate Post-Op Evalulation Immediate Post-Op Evalulation Procedure: Permanent Pacemaker Date of Evaluation: Jun 18, 2020 Time of Evaluation: 15:47 IV Fluids: 200 LR Blood Products: 0 Estimated Blood Loss: 30 Urinary Output: 0 Blood Pressure Systolic: 97 Blood Pressure Diastolic: 48 Pulse Rate: 89 Respiratory Rate: 16 O2 Sat by Pulse Oximetry: 100 Temperature (Fahrenheit): 97.3 Pain Score (1-10): 1 Nausea: No Vomiting: No Complications 0 Patient Status: awake, reacts, patent, none Hydration Status: adequate Dru Gram Ancef IV Given Within 1 Hr of Incision: Yes Time Given: 14:46 Vinicius Tijerina MD Jun 18, 2020 14:00
--- NOTE | 2020-06-18 14:03 | Infectious Diseases Prog Note ---
Assessment/Plan Assessment/Plan IMPRESSION: COVID-19 disease, Acute respiratory failure, COPD, Diastolic CHF, Mitral valve regurgitation, Anemia, Parkinson disease, schizoaffective disorder, Dementia, Obstructive sleep apnea, Hypothyroidism. 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 SSS with pause RECOMMENDATION: Finished dexamethasone & Remdesivir course Observe off of antibiotic Will have pacemaker placement today Subjective ROS Limited/Unobtainable: Yes Neurologic: Reports: confusion, other - on restraint Allergies: Coded Allergies: LITHIUM (Verified Allergy, Unknown, 02/07/19) Objective Last 24 Hour Vital Signs Date Time Temp Pulse Resp B/P (MAP) Pulse Ox O2 Delivery O2 Flow Rate FiO2 06/18/20 12:00 97.6 66 20 121/40 (67) 96 06/18/20 11:35 60 06/18/20 09:00 Room Air 06/18/20 08:00 97.5 67 20 119/40 (66) 96 06/18/20 07:32 68 06/18/20 04:00 67 06/18/20 04:00 97.7 68 18 109/35 (59) 96 06/18/20 00:00 99.4 72 18 113/39 (63) 93 06/18/20 00:00 68 06/17/20 21:00 Room Air 06/17/20 20:00 68 06/17/20 20:00 98.4 71 20 107/44 (65) 96 06/17/20 19:37 95 Room Air 21 06/17/20 16:00 98.1 67 20 125/93 (104) 95 06/17/20 16:00 70 Height (Feet): 5 Height (Inches): 3.00 Weight (Pounds): 183 HEENT: mucous membranes moist Respiratory/Chest: lungs clear Cardiovascular: normal rate Abdomen: soft, non tender Extremities: no edema Neurologic/Psychiatric: alert, responsive, disoriented Current Medications Medications (Trade) Dose Ordered Sig/Angie Route PRN Reason Start Time Stop Time Status Last Admin Dose Admin Acetaminophen (Tylenol) 650 mg Q6H PRN NG Fever >100.5 06/12/20 08:00 07/12/20 07:59 Acetaminophen (Tylenol) 650 mg Q6H PRN NG Mild Pain (Pain Scale 1-3) 06/12/20 08:00 07/12/20 07:59 Acetaminophen/ Hydrocodone Bitart ([place] 5/325) 1 tab Q1H PRN ORAL Mild Pain (Pain Scale 1-3) 06/18/20 14:00 06/18/20 20:00 Acetaminophen/ Hydrocodone Bitart ([place] 7.5/325) 1 tab Q1H PRN ORAL Moderate Pain (Pain Scale 4-6) 06/18/20 14:00 UNV Al Hydroxide/Mg Hydroxide (Mylanta) 15 ml Q1H PRN ORAL gi upset 06/18/20 14:00 UNV Atropine Sulfate (Atropine 0.4mg/ ml) 0.5 mg Q5M PRN IVP HR<40 06/18/20 14:00 UNV Chlorhexidine Gluconate (Ruba-Hex 2%) 1 applic DAILY@1999 TOPIC 06/12/20 20:00 09/10/20 19:59 06/17/20 20:58 Clonidine HCl (Catapres Tab) 0.1 mg Q4H PRN ORAL sbp>170 05/11/20 17:15 08/09/20 17:14 Diphenhydramine HCl (Benadryl) 25 mg Q15M PRN IVP Itching 06/18/20 14:00 UNV Docusate Sodium (Colace) 100 mg TWICE A DAY ORAL 06/05/20 09:00 07/05/20 08:59 06/17/20 18:21 Fentanyl Citrate (Sublimaze 100 mcg/2 mL) 25 mcg Q10M PRN IV Moderate Pain (Pain Scale 4-6) 06/18/20 14:00 06/18/20 20:00 Furosemide (Lasix) 40 mg DAILY ORAL 06/09/20 09:00 07/09/20 08:59 06/17/20 10:14 Haloperidol Lactate (Haldol) 5 mg Q6H PRN IM Agitation 05/13/20 20:45 06/27/20 20:44 05/28/20 02:40 Heparin Sodium (Porcine) (Heparin 5000 units/ml) 5,000 units EVERY 12 HOURS SUBQ 05/25/20 21:00 07/09/20 20:59 06/17/20 21:07 Hydralazine HCl (Apresoline) 5 mg Q30M PRN IV SBP>160 / DBP>90 06/18/20 14:00 UNV Hydromorphone HCl (Dilaudid) 0.5 mg Q15M PRN IVP Severe Pain (Pain Scale 7-10) 06/18/20 14:00 06/18/20 20:00 Lactated Ringer's 1,000 ml @ 10 mls/hr Q24H IVLG 06/18/20 14:00 06/18/20 15:59 UNV Lactulose (Cephulac) 20 gm THREE TIMES A DAY ORAL 06/08/20 18:00 07/08/20 17:59 06/17/20 18:21 Lansoprazole (Prevacid) 30 mg BID ORAL 06/05/20 18:00 07/05/20 17:59 06/17/20 18:21 Levothyroxine Sodium (Synthroid) 50 mcg DAILY@0630 ORAL 06/13/20 06:30 07/13/20 06:29 06/17/20 06:41 Lorazepam (Ativan 2mg/ml 1ml) 1 mg Q15M PRN IV For Anxiety 06/18/20 14:00 UNV Meperidine HCl (Demerol) 25 mg Q5M PRN IV SHIVERING.MAY REPEAT X 1 06/18/20 14:00 UNV Midazolam HCl (Versed 2mg/2ml vial) 1 mg Q15M PRN IVP For Anxiety 06/18/20 14:00 UNV Oxycodone/ Acetaminophen (Percocet 5-325) 1 tab Q1H PRN ORAL Severe Pain (Pain Scale 7-10) 06/18/20 14:00 UNV Polyethylene Glycol (Miralax) 17 gm BEDTIME ORAL 05/25/20 21:00 06/24/20 20:59 06/17/20 20:58 Quetiapine Fumarate (SEROqueL) 50 mg Q12HR ORAL 06/15/20 09:00 07/24/20 20:59 06/17/20 20:58 Lei Chan MD Jun 18, 2020 14:03
--- NOTE | 2020-06-18 14:06 | Pre-Procedure Note/Attestation ---
Pre-Procedure Note/Attestation Complete Prior to Procedure Planned Procedure: left Procedure Narrative: Permanent Pacer implantation Attestation I attest that I discussed the nature of the procedure; its benefits; risks and complications; and alternatives (and the risks and benefits of such alte rnatives), prior to the procedure, with the patient (or the patient's legal field service representative). I attest that, if there was a reasonable possibility of needing a blood transfusion, the patient (or the patient's legal field service representative) was given the [facility] standardized written summary, pursuant to the Mohit Emigdio Blood Safety Act ([place] Health and Safety Code # 1645, as amended). I attest that I re-evaluated the patient just prior to the surgery and that there has been no change in the patient's H&P, except as documented below: Cameron Davies MD Jun 18, 2020 14:06
[2020-06-18] MEDS ORDERED: NS 500ML IVPB ONE (15:00)
--- NOTE | 2020-06-18 15:31 | Brief Operative Note ---
Immediate Post Operative Note Operative Note Post-op Diagnosis: same as pre-op Specimen: none Complications: none Condition: stable Fluids: none Estimated Blood Loss: minimal Implant(s) used?: Yes Cameron Davies MD Jun 18, 2020 15:31
--- NOTE | 2020-06-18 15:38 | Cardiac Electrophysiology PN ---
Assessment/Plan Assessment/Plan 1. Covid PNA and respiratory failure. S/P Remdesevir and Dexamethasone Self extubated on RA. Off Abx per ID. On Lasix [address] Myers Now off isolation 2. SSS with 8 pauses of more than 3 seconds including 9 and 10 second pauses off any QUEZADA or AVN blockers. DW patients public Guardian, Mr. Mohit Hyatt at [phone] today at 10.30 am who stated the conservator is actually Mr Manpreet Wyatt [phone] Mr Mohit Hyatt also stated that he was covering Mr Edmundo Wyatt, conservator at [phone] who agreed to proceed with 2 physician consent per hospital policy S/P DDD [facility] [employer] PPM implant today 3. Hypotension. Off Dopamine. EF 55% 4. Schizophrenia and psychosis. 5. S/P MRSA & Klebsiella pneumonia DW RN Subjective Subjective Self extubated on 05/22/20 off Covid isolation. Had multiple pauses of more than 3 seconds including a 4s and 7s and a 10 second pause at 1 AM on 05/31 Had pauses of 7, 8 and 6 seconds again 06/01/20 On RA in restraints. S/P RUE PICC line DW patients public Guardian, Mr. Mohit Hyatt at [phone] and the conservator Mr Manpreet Wyatt [phone] [facility] pacer implantation performed and dictated [id number] Objective Last 24 Hour Vital Signs Date Time Temp Pulse Resp B/P (MAP) Pulse Ox O2 Delivery O2 Flow Rate FiO2 06/18/20 12:00 97.6 66 20 121/40 (67) 96 06/18/20 11:35 60 06/18/20 09:00 Room Air 06/18/20 08:00 97.5 67 20 119/40 (66) 96 06/18/20 07:32 68 06/18/20 07:00 96 Room Air 21 06/18/20 04:00 67 06/18/20 04:00 97.7 68 18 109/35 (59) 96 06/18/20 00:00 99.4 72 18 113/39 (63) 93 06/18/20 00:00 68 06/17/20 21:00 Room Air 06/17/20 20:00 68 06/17/20 20:00 98.4 71 20 107/44 (65) 96 06/17/20 19:37 95 Room Air 21 06/17/20 16:00 98.1 67 20 125/93 (104) 95 06/17/20 16:00 70 Intake and Output 06/17/20 06/18/20 19:00 07:00 Intake Total 350 ml Balance 350 ml Intake Oral 350 ml # Voids 2 2 Objective HEAD AND NECK: Positive JVD. LUNGS: Decreased breath sounds. CARDIOVASCULAR: Regular S1 and S2 with no gallop.Pacer left subclavian with no hematoma ABDOMEN: Obese. EXTREMITIES: Bilateral 2+ pitting edema. Cameron Davies MD Jun 18, 2020 15:38
[2020-06-18] MEDS ORDERED: Morphine Sulfate 2mg/ml Inj(IV/IM USE ONLY) IVP PRN (15:45)
[2020-06-18] MEDS ORDERED: Tylenol #3 tab (300mg/30mg) ORAL PRN (15:45)
--- NOTE | 2020-06-18 16:30 | Operative Note - Dictated ---
DATE OF OPERATION: 06/18/2020 PERMANENT PACEMAKER IMPLANTATION REPORT INDICATION FOR THE PROCEDURE: Sick sinus syndrome with multiple pauses of more than 3 seconds including pauses of more than 10 seconds. PROCEDURES PERFORMED: 1. Dual-chamber permanent pacemaker implantation. 2. Fluoroscopic supervision and interpretation. 3. Pacemaker program during initial implant. OPERATIVE REPORT: The patient was brought into electrophysiology laboratory in a fasting state after informed consent was obtained. The patient was prepped and draped in the usual fashion. Anesthesia was provided by the anesthesiologist. The patient received antibiotics within an hour of incision. After prep and drape under sterile condition, a total of 20 mL lidocaine was given to left prepectoralis area. An incision was made along the left deltopectoral groove. Sharp and blunt dissection was made to the level of pectoralis fascia. The cephalic vein was isolated and cutdown was performed. The right atrial and right ventricular lead was placed through this access and was placed in right atrial appendage and right ventricular apex with excellent sensing and pacing parameters. Both leads were then affixed to underlying pectoralis fascia. A pocket was made close to the venous access and was irrigated with antibiotic solution. Both leads were then connected to the pacemaker and left in the pocket. The pocket was then closed in 3 layers using 2-0 Vicryl and Dermabond. The patient had no other complication from the procedure and was transferred to the recovery room in a stable condition. FINDINGS: The pacemaker is from [employer]. It is [id number], serial number is [id number]. Right atrial lead is from [employer]. It is 2088TC 52 cm, serial number is [id number]. Right ventricular lead is from [employer]. It is 2088TC 58 cm, serial number is [id number]. The P-wave amplitude was 3.1 mV, threshold was 0.75 V at 0.4 milliseconds, impedance of 510 ohms. R-wave was 10.2 mV, threshold was 0.75 V at 0.4 milliseconds, impedance of 660 ohms. IMPRESSION: 1. Successful dual-chamber permanent pacemaker implantation. 2. Pacemaker was programmed to lower rate of 60, upper rate of 130. 3. No immediate complications from the procedure. Cameron Davies M.D. DR: AMNA JOB#: [id number] CC:
--- NOTE | 2020-06-18 16:32 | Diagnostic Imaging Report ---
INDICATION: Pain, intraoperative TECHNIQUE: Intraoperative imaging Fluoroscopy time: 64.5 seconds Total dose: 0.43814 mGym2 Total number of images: 1 COMPARISON: None FINDINGS: Pacemaker leads are seen in the expected level of the right atrium and right ventricular apex IMPRESSION: Intraoperative imaging, as described
--- NOTE | 2020-06-18 19:33 | Psychiatric Progress Note ---
Psychiatry Progress Note Psychiatry Progress Note Subjective the pt has waxing and waning o consciousness on restraints episodes agitation confused Medications Current Medications Medications (Trade) Dose Ordered Sig/Angie Route PRN Reason Start Time Stop Time Status Last Admin Dose Admin Acetaminophen (Tylenol) 650 mg Q6H PRN NG Fever >100.5 06/12/20 08:00 07/12/20 07:59 Acetaminophen (Tylenol) 650 mg Q6H PRN NG Mild Pain (Pain Scale 1-3) 06/12/20 08:00 07/12/20 07:59 Acetaminophen/ Codeine Phosphate (Tylenol #3) 1 tab Q4H PRN ORAL Moderate Pain (Pain Scale 4-6) 06/18/20 15:45 06/25/20 15:44 Cefazolin Sodium 1 gm/Dextrose 55 ml @ 110 mls/hr Q8H IVP 06/18/20 23:00 06/25/20 22:59 Chlorhexidine Gluconate (Ruba-Hex 2%) 1 applic DAILY@2000 TOPIC 06/12/20 20:00 09/10/20 19:59 06/17/20 20:58 Clonidine HCl (Catapres Tab) 0.1 mg Q4H PRN ORAL sbp>170 05/11/20 17:15 08/09/20 17:14 Docusate Sodium (Colace) 100 mg TWICE A DAY ORAL 06/05/20 09:00 07/05/20 08:59 06/17/20 18:21 Furosemide (Lasix) 40 mg DAILY ORAL 06/09/20 09:00 07/09/20 08:59 06/17/20 10:14 Haloperidol Lactate (Haldol) 5 mg Q6H PRN IM Agitation 05/13/20 20:45 06/27/20 20:44 05/28/20 02:40 Heparin Sodium (Porcine) (Heparin 5000 units/ml) 5,000 units EVERY 12 HOURS SUBQ 05/25/20 21:00 07/09/20 20:59 06/17/20 21:07 Lactulose (Cephulac) 20 gm THREE TIMES A DAY ORAL 06/08/20 18:00 07/08/20 17:59 06/17/20 18:21 Lansoprazole (Prevacid) 30 mg BID ORAL 06/05/20 18:00 07/05/20 17:59 06/17/20 18:21 Levothyroxine Sodium (Synthroid) 50 mcg DAILY@0630 ORAL 06/13/20 06:30 07/13/20 06:29 06/17/20 06:41 Morphine Sulfate (Morphine Sulfate) 2 mg Q1H PRN IVP Severe Pain (Pain Scale 7-10) 06/18/20 15:45 06/25/20 15:44 Ondansetron HCl (Zofran) 4 mg Q6H PRN IVP Nausea & Vomiting 06/18/20 15:45 07/18/20 15:44 Polyethylene Glycol (Miralax) 17 gm BEDTIME ORAL 05/25/20 21:00 06/24/20 20:59 06/17/20 20:58 Quetiapine Fumarate (SEROqueL) 50 mg Q12HR ORAL 06/15/20 09:00 07/24/20 20:59 06/17/20 20:58 Neurological/Psychiatric: Denies: no symptoms, anxiety, depressed, emotional problems, headache, numbness, paresthesia, pre-existing deficit, seizure, tingling, tremors, weakness, other Allergies: Coded Allergies: LITHIUM (Verified Allergy, Unknown, 02/07/19) Objective Data Height (Feet): 5 Height (Inches): 3.00 Weight (Pounds): 183 General Appearance: no apparent distress Additional Comments: waxing and waning consciousness. Disoriented. Mood is neutral to agitation. Affect is flat. Thought process, there is paucity of thought process. Thought content, no suicidal or homicidal ideation. Cognition is impaired. Insight and judgment is impaired. Assessment/Plan [place] I: [place] I Acute toxic encephalopathy. Schizophrenia. [place] II Deferred. [place] III COVID-19. [place] IV Low. [place] V 20 PLAN: 1. Discontinue the IV Haldol. 2. Start the patient on Haldol IM. 3. The patient benefits from bilateral soft restraints. 4. Provide the patient with reality orientation. 5. Discussed with the nurse. Status: progressing, unchanged, deteriorating Status Narrative [place] I Acute toxic encephalopathy. Schizophrenia. [place] II Deferred. [place] III COVID-19. [place] IV Low. [place] V 20 PLAN: 1. Discontinue the IV Haldol. 2. Start the patient on Haldol IM. 3. The patient benefits from bilateral soft restraints. 4. Provide the patient with reality orientation. 5. Discussed with the nurse. Assessment/Plan: [place] I Acute toxic encephalopathy. Schizophrenia. [place] II Deferred. [place] III COVID-19. [place] IV Low. [place] V 20 PLAN: 1. Discontinue the IV Haldol. 2. Start the patient on Haldol IM. 3. The patient benefits from bilateral soft restraints. 4. Provide the patient with reality orientation. 5. Discussed with the nurse. Kiana Hernandez MD Jun 18, 2020 19:33
--- NOTE | 2020-06-18 21:22 | General Progress Note ---
Subjective ROS Limited/Unobtainable: Yes Allergies: Coded Allergies: LITHIUM (Verified Allergy, Unknown, 02/07/19) Objective Last 24 Hour Vital Signs Date Time Temp Pulse Resp B/P (MAP) Pulse Ox O2 Delivery O2 Flow Rate FiO2 06/18/20 16:37 71 06/18/20 16:10 97.9 68 21 112/55 100 Nasal Cannula 3 06/18/20 16:00 97.8 66 20 164/47 (86) 98 06/18/20 16:00 66 20 127/45 100 Nasal Cannula 3 06/18/20 15:50 67 21 120/43 100 Nasal Cannula 3 06/18/20 15:40 68 21 121/45 100 Simple Mask 6 06/18/20 15:37 89 16 100 06/18/20 15:35 71 17 131/48 100 Simple Mask 6 06/18/20 15:30 97.6 76 20 121/47 100 Simple Mask 6 06/18/20 12:00 97.6 66 20 121/40 (67) 96 06/18/20 11:35 60 06/18/20 09:00 Room Air 06/18/20 08:00 97.5 67 20 119/40 (66) 96 06/18/20 07:32 68 06/18/20 07:00 96 Room Air 21 06/18/20 04:00 67 06/18/20 04:00 97.7 68 18 109/35 (59) 96 06/18/20 00:00 99.4 72 18 113/39 (63) 93 06/18/20 00:00 68 Intake and Output 06/17/20 06/18/20 19:00 07:00 Intake Total 350 ml Balance 350 ml Intake Oral 350 ml # Voids 2 2 Height (Feet): 5 Height (Inches): 3.00 Weight (Pounds): 183 Assessment/Plan Problem List: (1) Anemia ICD Codes: D64.9 - Anemia, unspecified SNOMED: 915421084 (2) Hypercapnic respiratory failure ICD Codes: J96.92 - Respiratory failure, unspecified with hypercapnia SNOMED: 251720276 (3) COVID-19 ICD Codes: U07.1 - COVID-19 SNOMED: 460710757 (4) COPD (chronic obstructive pulmonary disease) ICD Codes: J44.9 - Chronic obstructive pulmonary disease, unspecified SNOMED: 95567767 (5) Psychosis ICD Codes: F29 - Unspecified psychosis not due to a substance or known physiological condition SNOMED: 83863036 (6) Hypoxia ICD Codes: R09.02 - Hypoxemia SNOMED: 692140263 (7) Renal failure (ARF), acute on chronic ICD Codes: N17.9 - Acute kidney failure, unspecified; N18.9 - Chronic kidney disease, unspecified SNOMED: 305590223 (8) CHF exacerbation ICD Codes: I50.9 - Heart failure, unspecified SNOMED: 986758573, 85376128702534 Status: progressing, unchanged, deteriorating Assessment/Plan: s/p bradycardia and pause s/p pacemaker psychosis depression obesity azotemia copd pna chf Dani Perera MD Jun 18, 2020 21:22
--- NOTE | 2020-06-18 21:42 | General Progress Note ---
Subjective Allergies: Coded Allergies: LITHIUM (Verified Allergy, Unknown, 02/07/19) Subjective above noted feels OK no abdominal complaints Objective Last 24 Hour Vital Signs Date Time Temp Pulse Resp B/P (MAP) Pulse Ox O2 Delivery O2 Flow Rate FiO2 06/18/20 16:37 71 06/18/20 16:10 97.9 68 21 112/55 100 Nasal Cannula 3 06/18/20 16:00 97.8 66 20 164/47 (86) 98 06/18/20 16:00 66 20 127/45 100 Nasal Cannula 3 06/18/20 15:50 67 21 120/43 100 Nasal Cannula 3 06/18/20 15:40 68 21 121/45 100 Simple Mask 6 06/18/20 15:37 89 16 100 06/18/20 15:35 71 17 131/48 100 Simple Mask 6 06/18/20 15:30 97.6 76 20 121/47 100 Simple Mask 6 06/18/20 12:00 97.6 66 20 121/40 (67) 96 06/18/20 11:35 60 06/18/20 09:00 Room Air 06/18/20 08:00 97.5 67 20 119/40 (66) 96 06/18/20 07:32 68 06/18/20 07:00 96 Room Air 21 06/18/20 04:00 67 06/18/20 04:00 97.7 68 18 109/35 (59) 96 06/18/20 00:00 99.4 72 18 113/39 (63) 93 06/18/20 00:00 68 Intake and Output 06/17/20 06/18/20 19:00 07:00 Intake Total 350 ml Balance 350 ml Intake Oral 350 ml # Voids 2 2 Height (Feet): 5 Height (Inches): 3.00 Weight (Pounds): 183 Objective WDWN WW NCAT CTA RR abd soft no edema Assessment/Plan Status: progressing, unchanged, deteriorating Assessment/Plan: Assessment/Plan (1) Hypertension (2) Schizophrenia (3) Hyperlipidemia (4) Parkinson disease (5) Anemia (6) Obese (7) COVID (+) (8) Hypoxia (9) arrhythmia Recommendations PPI BID Follow H&H Transfuse to keep Hg>7.0 po as tolerated GI procedures at a later date, if needed bowel regimen pacemaker placement per cards Aria Chicas MD Jun 18, 2020 21:42
[2020-06-18] MEDS: Dyna-Hex 2% Top Sol 2oz TOPIC SCH (22:11)
[2020-06-18] MEDS: Miralax 17gm pkt ORAL SCH (22:13)
[2020-06-18] MEDS: ceFAZolin sod 1 GM in D5W 55 ML IVP SCH (23:29)
[2020-06-19] VITALS: BP 147/45
[2020-06-19 04:00] VITALS: BP 142/50
--- NOTE | 2020-06-19 06:25 | Hematology/Onc Progress Note ---
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 ( combination of moderate aortic regurgitation and severe mitral regurgitation) --> diuresis as per cards --> lasix last time # Severe ascending aortic dilatation --> per Dr Keke campbell --> meds reviewed # Hypertension # Parkinson disease # Hyperlipidemia # Hypothyroidism # Dementia # Obesity # Schizophrenia --> as per [facility] --> restraints # Dvt ppx heparin sq Appreciate ada accommodation consultant care and alexei Rn Subjective HEENT: Denies: no symptoms, eye pain, blurred vision, tearing, double vision, ear pain, ear discharge, nose pain, nose congestion, throat pain, throat swelling, mouth pain, mouth swelling, other Cardiovascular: Denies: no symptoms, chest pain, edema, irregular heart rate, lightheadedness, palpitations, syncope, other Genitourinary: Denies: no symptoms, burning, discharge, frequency, flank pain, hematuria, incontinence, pain, urgency, other Neurologic/Psychiatric: Denies: no symptoms, anxiety, depressed, emotional problems, headache, numbness, paresthesia, pre-existing deficit, seizure, tingling, tremors, weakness, other Endocrine: Denies: no symptoms, excessive sweating, flushing, intolerance to cold, intolerance to heat, increased hunger, increased thirst, increased urine, unexplained weight gain, unexplained weight loss, other Hematologic/Lymphatic: Denies: no symptoms, anemia, easy bleeding, easy bruising, adenopathy, other Allergies: Coded Allergies: LITHIUM (Verified Allergy, Unknown, 02/07/19) Subjective 06/01 nonrebreather, 15L, some mild pain in back, chest, no night sweats 06/02 remains on nonrebreather, labs are noted, no bleeding or night sweats 06/03 labs reviewed, meds noted, nonrebreather, c02 was elevated, to inform pulm 06/04 labs reviewed, meds noted, on NR, no night sweats, meds noted 06/05 is on 15lnc venturi mask, is covid iso, labs noted 06/06 labs reviewed, on venturi mask, on b/l soft wrists, meds noted 06/08 labs reviewed, on nc, no bleeding, with picc line, cbc ordered 06/09 labs reviewed, confused, on 3l nc, no night sweats, meds reviewed 06/10 is off restraints, left picc has been removed, no new changes 06/11 remains confused, is to have picc placed, per public guardian 06/12 wrist restraints, very agitated overnight, noncompliant, labs reviewed 06/13 labs noted, no bleedig, hgb remains low, cbc is pending 06/14: labs reviewed, on restraints, 02 no resp distress 06/15: no acute distress afebrile. hgb 9.2 06/16 labs reviewed, meds noted, no hemolysis, no bleeding 06/17 pacemaker placement is pending, labs reviewed, no new events 06/18 labs noted, awake, alert is in restraints, labs pending 06/19 A+O x1, s/p pacemaker, is confused, refusing meds Objective Objective Current Medications Medications (Trade) Dose Ordered Sig/Angie Route PRN Reason Start Time Stop Time Status Last Admin Dose Admin Acetaminophen (Tylenol) 650 mg Q6H PRN NG Fever >100.5 06/12/20 08:00 07/12/20 07:59 Acetaminophen (Tylenol) 650 mg Q6H PRN NG Mild Pain (Pain Scale 1-3) 06/12/20 08:00 07/12/20 07:59 Acetaminophen/ Codeine Phosphate (Tylenol #3) 1 tab Q4H PRN ORAL Moderate Pain (Pain Scale 4-6) 06/18/20 15:45 06/25/20 15:44 Cefazolin Sodium 1 gm/Dextrose 55 ml @ 110 mls/hr Q8H IVP 06/18/20 23:00 06/25/20 22:59 06/18/20 23:29 Chlorhexidine Gluconate (Ruba-Hex 2%) 1 applic DAILY@2000 TOPIC 06/12/20 20:00 09/10/20 19:59 06/18/20 22:11 Clonidine HCl (Catapres Tab) 0.1 mg Q4H PRN ORAL sbp>170 05/11/20 17:15 08/09/20 17:14 Docusate Sodium (Colace) 100 mg TWICE A DAY ORAL 06/05/20 09:00 07/05/20 08:59 06/17/20 18:21 Furosemide (Lasix) 40 mg DAILY ORAL 06/09/20 09:00 07/09/20 08:59 06/17/20 10:14 Haloperidol Lactate (Haldol) 5 mg Q6H PRN IM Agitation 05/13/20 20:45 06/27/20 20:44 05/28/20 02:40 Heparin Sodium (Porcine) (Heparin 5000 units/ml) 5,000 units EVERY 12 HOURS SUBQ 05/25/20 21:00 07/09/20 20:59 06/18/20 21:00 Lactulose (Cephulac) 20 gm THREE TIMES A DAY ORAL 06/08/20 18:00 07/08/20 17:59 06/17/20 18:21 Lansoprazole (Prevacid) 30 mg BID ORAL 06/05/20 18:00 07/05/20 17:59 06/17/20 18:21 Levothyroxine Sodium (Synthroid) 50 mcg DAILY@0630 ORAL 06/13/20 06:30 07/13/20 06:29 06/17/20 06:41 Morphine Sulfate (Morphine Sulfate) 2 mg Q1H PRN IVP Severe Pain (Pain Scale 7-10) 06/18/20 15:45 06/25/20 15:44 06/18/20 23:28 Ondansetron HCl (Zofran) 4 mg Q6H PRN IVP Nausea & Vomiting 06/18/20 15:45 07/18/20 15:44 Polyethylene Glycol (Miralax) 17 gm BEDTIME ORAL 05/25/20 21:00 06/24/20 20:59 06/18/20 22:13 Quetiapine Fumarate (SEROqueL) 50 mg Q12HR ORAL 06/15/20 09:00 07/24/20 20:59 06/18/20 22:11 Last 24 Hour Vital Signs Date Time Temp Pulse Resp B/P (MAP) Pulse Ox O2 Delivery O2 Flow Rate FiO2 06/19/20 04:00 97.9 68 19 142/50 (80) 97 06/19/20 04:00 68 06/19/20 00:00 72 06/19/20 00:00 97.9 69 19 147/45 (79) 97 06/18/20 21:00 Room Air 06/18/20 20:00 98.1 74 19 126/59 (81) 98 06/18/20 20:00 78 06/18/20 16:37 71 06/18/20 16:10 97.9 68 21 112/55 100 Nasal Cannula 3 06/18/20 16:00 97.8 66 20 164/47 (86) 98 06/18/20 16:00 66 20 127/45 100 Nasal Cannula 3 06/18/20 15:50 67 21 120/43 100 Nasal Cannula 3 06/18/20 15:40 68 21 121/45 100 Simple Mask 6 06/18/20 15:37 89 16 100 06/18/20 15:35 71 17 131/48 100 Simple Mask 6 06/18/20 15:30 97.6 76 20 121/47 100 Simple Mask 6 06/18/20 12:00 97.6 66 20 121/40 (67) 96 06/18/20 11:35 60 06/18/20 09:00 Room Air 06/18/20 08:00 97.5 67 20 119/40 (66) 96 06/18/20 07:32 68 06/18/20 07:00 96 Room Air 21 06/18/20 04:00 67 06/18/20 04:00 97.7 68 18 109/35 (59) 96 06/18/20 00:00 99.4 72 18 113/39 (63) 93 06/18/20 00:00 68 06/17/20 21:00 Room Air 06/17/20 20:00 68 06/17/20 20:00 98.4 71 20 107/44 (65) 96 06/17/20 19:37 95 Room Air 21 06/17/20 16:00 98.1 67 20 125/93 (104) 95 06/17/20 16:00 70 06/17/20 12:00 69 06/17/20 12:00 96.6 81 20 128/69 (88) 95 06/17/20 09:00 Room Air 06/17/20 08:44 94 Room Air 21 06/17/20 08:00 68 06/17/20 08:00 96.7 89 18 122/61 (81) 94 Intake and Output 06/18/20 06/19/20 19:00 07:00 Intake Total 300 ml Output Total 30 ml Balance 270 ml IV Total 300 ml Estimated Blood Loss 30 ml Labs Test 06/16/20 10:25 06/17/20 09:25 White Blood Count 6.1 K/UL (4.8-10.8) Red Blood Count 2.78 M/UL (4.20-5.40) Hemoglobin 9.2 G/DL (12.0-16.0) Hematocrit 27.5 % (37.0-47.0) Mean Corpuscular Volume 99 FL (80-99) Mean Corpuscular Hemoglobin 33.1 PG (27.0-31.0) Mean Corpuscular Hemoglobin Concent 33.5 G/DL (32.0-36.0) Red Cell Distribution Width 17.8 % (11.6-14.8) Platelet Count 286 K/UL (150-450) Mean Platelet Volume 6.0 FL (6.5-10.1) Neutrophils (%) (Auto) 58.5 % (45.0-75.0) Lymphocytes (%) (Auto) 31.3 % (20.0-45.0) Monocytes (%) (Auto) 6.0 % (1.0-10.0) Eosinophils (%) (Auto) 2.7 % (0.0-3.0) Basophils (%) (Auto) 1.4 % (0.0-2.0) Sodium Level 138 MMOL/L (136-145) Potassium Level 4.1 MMOL/L (3.5-5.1) Chloride Level 104 MMOL/L (98-107) Carbon Dioxide Level 29 MMOL/L (21-32) Anion Gap 6 mmol/L (5-15) Blood Urea Nitrogen 25 mg/dL (7-18) Creatinine 1.0 MG/DL (0.55-1.30) Estimat Glomerular Filtration Rate 53.3 mL/min (>60) Glucose Level 125 MG/DL (74-106) Calcium Level 8.9 MG/DL (8.5-10.1) Phosphorus Level 2.8 MG/DL (2.5-4.9) Magnesium Level 2.0 MG/DL (1.8-2.4) Total Bilirubin 0.5 MG/DL (0.2-1.0) Aspartate Amino Transf (AST/SGOT) 13 U/L (15-37) Alanine Aminotransferase (ALT/SGPT) 9 U/L (12-78) Alkaline Phosphatase 39 U/L (46-116) Total Protein 6.8 G/DL (6.4-8.2) Albumin 2.9 G/DL (3.4-5.0) Globulin 3.9 g/dL Albumin/Globulin Ratio 0.7 (1.0-2.7) Height (Feet): 5 Height (Inches): 3.00 Weight (Pounds): 183 Objective Physical Exam: Vitals: reviewed General: NAD HEENT: nc, at Neck: supple Chest: decreased breath sounds bilaterally, crackles+++ 15L NRM Cardiovascular: RRR, no s3, s4 Abdomen: soft, nontender, nd Extremities: 1-2 + edema Neuro: nonverbal Frank Escobar MD Jun 19, 2020 06:25
[2020-06-19] MEDS: ceFAZolin sod 1 GM in D5W 55 ML IVP SCH ×3 (07:00→23:04)
[2020-06-19 07:25] LABS: EOSINOPHILS % (AUTO) 2.6 % (0.0-3.0); HEMATOCRIT 24.9 % (37.0-47.0); HEMOGLOBIN 8.4 G/DL (12.0-16.0); LYMPHOCYTES % (AUTO) 22.3 % (20.0-45.0); MEAN CORPUSCULAR VOLUME 99 FL (80-99); MONOCYTES % (AUTO) 7.5 % (1.0-10.0); NEUTROPHILS % (AUTO) 66.6 % (45.0-75.0); PLATELET COUNT 232 K/UL (150-450); RED BLOOD COUNT 2.51 M/UL (4.20-5.40); RED CELL DISTRIBUTION WIDTH 17.1 % (11.6-14.8); WHITE BLOOD COUNT 6.3 K/UL (4.8-10.8)
[2020-06-19 07:32] LABS: ALBUMIN 2.8 G/DL (3.4-5.0); ALBUMIN/GLOBULIN RATIO 0.8 (1.0-2.7); BILIRUBIN,TOTAL 0.4 MG/DL (0.2-1.0); CALCIUM 8.2 MG/DL (8.5-10.1); POTASSIUM 3.7 MMOL/L (3.5-5.1)
[2020-06-19 08:00] VITALS: BP 110/55
[2020-06-19] MEDS: Docusate 100mg/10ml Liq ORAL SCH ×2 (09:35→18:37)
[2020-06-19] MEDS: Lactulose 20gm/30ml UDC ORAL SCH ×3 (09:35→18:37)
[2020-06-19] MEDS: Furosemide 40mg tab ORAL SCH (09:36)
[2020-06-19] MEDS: Heparin 5000 units/ml inj SUBQ SCH ×2 (09:37→21:45)
--- NOTE | 2020-06-19 10:25 | Diagnostic Imaging Report ---
Indication: Postpacemaker Technique: One view of the chest Comparison: 06/07/2020 Findings: Previously demonstrated PICC is no longer present. Placement of a left chest pacemaker, lead tips at the expected level of the right atrium and right ventricular apex. No pneumothorax. The heart is enlarged. Mild bilateral interstitial and airspace edema persistent infiltrates are similar to the prior exam. Impression: Status post pacemaker placement. No radiographic evidence complication. Other stable findings as described
--- NOTE | 2020-06-19 10:31 | Infectious Diseases Prog Note ---
Assessment/Plan Assessment/Plan IMPRESSION: COVID-19 disease, Acute respiratory failure, COPD, Diastolic CHF, Mitral valve regurgitation, Anemia, Parkinson disease, schizoaffective disorder, Dementia, Obstructive sleep apnea, Hypothyroidism. 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 SSS with pause s/p permanent pacemaker RECOMMENDATION: Finished dexamethasone & Remdesivir course Continue Prophylactic Cefazolin until tomorrow Subjective ROS Limited/Unobtainable: Yes Gastrointestinal/Abdominal: Reports: other - had pacemaker placement yesterday Neurologic: Reports: confusion, other - on restraint Allergies: Coded Allergies: LITHIUM (Verified Allergy, Unknown, 02/07/19) Objective Last 24 Hour Vital Signs Date Time Temp Pulse Resp B/P (MAP) Pulse Ox O2 Delivery O2 Flow Rate FiO2 06/19/20 04:00 97.9 68 19 142/50 (80) 97 06/19/20 04:00 68 06/19/20 00:00 72 06/19/20 00:00 97.9 69 19 147/45 (79) 97 06/18/20 21:00 Room Air 06/18/20 20:00 98.1 74 19 126/59 (81) 98 06/18/20 20:00 78 06/18/20 16:37 71 06/18/20 16:10 97.9 68 21 112/55 100 Nasal Cannula 3 06/18/20 16:00 97.8 66 20 164/47 (86) 98 06/18/20 16:00 66 20 127/45 100 Nasal Cannula 3 06/18/20 15:50 67 21 120/43 100 Nasal Cannula 3 06/18/20 15:40 68 21 121/45 100 Simple Mask 6 06/18/20 15:37 89 16 100 06/18/20 15:35 71 17 131/48 100 Simple Mask 6 06/18/20 15:30 97.6 76 20 121/47 100 Simple Mask 6 06/18/20 12:00 97.6 66 20 121/40 (67) 96 06/18/20 11:35 60 Height (Feet): 5 Height (Inches): 3.00 Weight (Pounds): 183 HEENT: mucous membranes moist Respiratory/Chest: lungs clear Cardiovascular: normal rate, other - left side pacemaker, PICC line Abdomen: soft, non tender Extremities: no edema Neurologic/Psychiatric: alert, responsive Laboratory Tests Test 06/19/20 05:00 White Blood Count 6.3 K/UL (4.8-10.8) Red Blood Count 2.51 M/UL (4.20-5.40) L Hemoglobin 8.4 G/DL (12.0-16.0) L Hematocrit 24.9 % (37.0-47.0) L Mean Corpuscular Volume 99 FL (80-99) Mean Corpuscular Hemoglobin 33.7 PG (27.0-31.0) H Mean Corpuscular Hemoglobin Concent 34.0 G/DL (32.0-36.0) Red Cell Distribution Width 17.1 % (11.6-14.8) H Platelet Count 232 K/UL (150-450) Mean Platelet Volume 5.7 FL (6.5-10.1) L Neutrophils (%) (Auto) 66.6 % (45.0-75.0) Lymphocytes (%) (Auto) 22.3 % (20.0-45.0) Monocytes (%) (Auto) 7.5 % (1.0-10.0) Eosinophils (%) (Auto) 2.6 % (0.0-3.0) Basophils (%) (Auto) 1.0 % (0.0-2.0) Sodium Level 137 MMOL/L (136-145) Potassium Level 3.7 MMOL/L (3.5-5.1) Chloride Level 104 MMOL/L (98-107) Carbon Dioxide Level 27 MMOL/L (21-32) Anion Gap 6 mmol/L (5-15) Blood Urea Nitrogen 26 mg/dL (7-18) H Creatinine 1.0 MG/DL (0.55-1.30) Estimat Glomerular Filtration Rate 53.3 mL/min (>60) Glucose Level 96 MG/DL (74-106) Calcium Level 8.2 MG/DL (8.5-10.1) L Total Bilirubin 0.4 MG/DL (0.2-1.0) Aspartate Amino Transf (AST/SGOT) 16 U/L (15-37) Alanine Aminotransferase (ALT/SGPT) 9 U/L (12-78) L Alkaline Phosphatase 39 U/L (46-116) L Total Protein 6.3 G/DL (6.4-8.2) L Albumin 2.8 G/DL (3.4-5.0) L Globulin 3.5 g/dL Albumin/Globulin Ratio 0.8 (1.0-2.7) L Current Medications Medications (Trade) Dose Ordered Sig/Angie Route PRN Reason Start Time Stop Time Status Last Admin Dose Admin Acetaminophen (Tylenol) 650 mg Q6H PRN NG Fever >100.5 06/12/20 08:00 07/12/20 07:59 Acetaminophen (Tylenol) 650 mg Q6H PRN NG Mild Pain (Pain Scale 1-3) 06/12/20 08:00 07/12/20 07:59 Acetaminophen/ Codeine Phosphate (Tylenol #3) 1 tab Q4H PRN ORAL Moderate Pain (Pain Scale 4-6) 06/18/20 15:45 06/25/20 15:44 Cefazolin Sodium 1 gm/Dextrose 55 ml @ 110 mls/hr Q8H IVP 06/18/20 23:00 06/25/20 22:59 06/18/20 23:29 Chlorhexidine Gluconate (Ruba-Hex 2%) 1 applic DAILY@2000 TOPIC 06/12/20 20:00 09/10/20 19:59 06/18/20 22:11 Clonidine HCl (Catapres Tab) 0.1 mg Q4H PRN ORAL sbp>170 05/11/20 17:15 08/09/20 17:14 Docusate Sodium (Colace) 100 mg TWICE A DAY ORAL 06/05/20 09:00 07/05/20 08:59 06/19/20 09:35 Furosemide (Lasix) 40 mg DAILY ORAL 06/09/20 09:00 07/09/20 08:59 06/19/20 09:36 Haloperidol Lactate (Haldol) 5 mg Q6H PRN IM Agitation 05/13/20 20:45 06/27/20 20:44 05/28/20 02:40 Heparin Sodium (Porcine) (Heparin 5000 units/ml) 5,000 units EVERY 12 HOURS SUBQ 05/25/20 21:00 07/09/20 20:59 06/19/20 09:37 Lactulose (Cephulac) 20 gm THREE TIMES A DAY ORAL 06/08/20 18:00 07/08/20 17:59 06/19/20 09:35 Lansoprazole (Prevacid) 30 mg BID ORAL 06/05/20 18:00 07/05/20 17:59 06/19/20 09:36 Levothyroxine Sodium (Synthroid) 50 mcg DAILY@0630 ORAL 06/13/20 06:30 07/13/20 06:29 06/17/20 06:41 Morphine Sulfate (Morphine Sulfate) 2 mg Q1H PRN IVP Severe Pain (Pain Scale 7-10) 06/18/20 15:45 06/25/20 15:44 06/18/20 23:28 Ondansetron HCl (Zofran) 4 mg Q6H PRN IVP Nausea & Vomiting 06/18/20 15:45 07/18/20 15:44 Polyethylene Glycol (Miralax) 17 gm BEDTIME ORAL 05/25/20 21:00 06/24/20 20:59 06/18/20 22:13 Quetiapine Fumarate (SEROqueL) 50 mg Q12HR ORAL 06/15/20 09:00 07/24/20 20:59 06/19/20 09:36 Lei Chan MD Jun 19, 2020 10:31
--- NOTE | 2020-06-19 11:17 | 48 Hour Post Anesthesia Eval ---
Post Anesthesia Evaluation Procedure: Permanent Pacemaker Date of Evaluation: Jun 19, 2020 Time of Evaluation: 11:15 Blood Pressure Systolic: 136 0: 76 Pulse Rate: 68 Respiratory Rate: 20 Temperature (Fahrenheit): 98.1 O2 Sat by Pulse Oximetry: 98 Airway: patent Nausea: No Vomiting: No Pain Intensity: 1 Hydration Status: adequate Cardiopulmonary Status: stable Mental Status/LOC: patient returned to baseline Follow-up Care/Observations: n/a Post-Anesthesia Complications: none Follow-up care needed: N/A Pradip Tariq MD Jun 19, 2020 11:17
--- NOTE | 2020-06-19 11:53 | Surgery Progress Note ---
Surgery Progress Note Subjective Additional Comments no acute events comfortable does not want to be bothered no n/v/f/c Objective Last 24 Hour Vital Signs Date Time Temp Pulse Resp B/P (MAP) Pulse Ox O2 Delivery O2 Flow Rate FiO2 06/19/20 11:17 68 20 98 06/19/20 04:00 97.9 68 19 142/50 (80) 97 06/19/20 04:00 68 06/19/20 00:00 72 06/19/20 00:00 97.9 69 19 147/45 (79) 97 06/18/20 21:00 Room Air 06/18/20 20:00 98.1 74 19 126/59 (81) 98 06/18/20 20:00 78 06/18/20 16:37 71 06/18/20 16:10 97.9 68 21 112/55 100 Nasal Cannula 3 06/18/20 16:00 97.8 66 20 164/47 (86) 98 06/18/20 16:00 66 20 127/45 100 Nasal Cannula 3 06/18/20 15:50 67 21 120/43 100 Nasal Cannula 3 06/18/20 15:40 68 21 121/45 100 Simple Mask 6 06/18/20 15:37 89 16 100 06/18/20 15:35 71 17 131/48 100 Simple Mask 6 06/18/20 15:30 97.6 76 20 121/47 100 Simple Mask 6 06/18/20 12:00 97.6 66 20 121/40 (67) 96 I&O Intake and Output 06/18/20 06/19/20 19:00 07:00 Intake Total 300 ml 500 ml Output Total 30 ml Balance 270 ml 500 ml Intake Oral 500 ml IV Total 300 ml Estimated Blood Loss 30 ml Dressing: saturated Cardiovascular: RSR Respiratory: decreased breath sounds Abdomen: soft, non-tender, present bowel sounds, non-distended Extremities: no edema, no tenderness, no cyanosis Laboratory Tests Test 06/19/20 05:00 White Blood Count 6.3 K/UL (4.8-10.8) Red Blood Count 2.51 M/UL (4.20-5.40) L Hemoglobin 8.4 G/DL (12.0-16.0) L Hematocrit 24.9 % (37.0-47.0) L Mean Corpuscular Volume 99 FL (80-99) Mean Corpuscular Hemoglobin 33.7 PG (27.0-31.0) H Mean Corpuscular Hemoglobin Concent 34.0 G/DL (32.0-36.0) Red Cell Distribution Width 17.1 % (11.6-14.8) H Platelet Count 232 K/UL (150-450) Mean Platelet Volume 5.7 FL (6.5-10.1) L Neutrophils (%) (Auto) 66.6 % (45.0-75.0) Lymphocytes (%) (Auto) 22.3 % (20.0-45.0) Monocytes (%) (Auto) 7.5 % (1.0-10.0) Eosinophils (%) (Auto) 2.6 % (0.0-3.0) Basophils (%) (Auto) 1.0 % (0.0-2.0) Sodium Level 137 MMOL/L (136-145) Potassium Level 3.7 MMOL/L (3.5-5.1) Chloride Level 104 MMOL/L (98-107) Carbon Dioxide Level 27 MMOL/L (21-32) Anion Gap 6 mmol/L (5-15) Blood Urea Nitrogen 26 mg/dL (7-18) H Creatinine 1.0 MG/DL (0.55-1.30) Estimat Glomerular Filtration Rate 53.3 mL/min (>60) Glucose Level 96 MG/DL (74-106) Calcium Level 8.2 MG/DL (8.5-10.1) L Total Bilirubin 0.4 MG/DL (0.2-1.0) Aspartate Amino Transf (AST/SGOT) 16 U/L (15-37) Alanine Aminotransferase (ALT/SGPT) 9 U/L (12-78) L Alkaline Phosphatase 39 U/L (46-116) L Total Protein 6.3 G/DL (6.4-8.2) L Albumin 2.8 G/DL (3.4-5.0) L Globulin 3.5 g/dL Albumin/Globulin Ratio 0.8 (1.0-2.7) L Plan Problems: (1) Anemia (2) Hypercapnic respiratory failure Assessment & Plan: respiratory insufficiency requiring prolonged ventilatory support unable to wean vent safely after multiple attempts discussed with pcp. discussed with pulm discussed with patient guardian. patient unable to consent. no nok or poa. given critical care and condition not recommended to await court decision which during pandemic can take long time. medically necessary to proceed with trach in patients best interest. self extubated will monitor DAILY ESTIMATED NEEDS: Needs based on Critical care, 70kg abw 22-28 kcals/kg 1430-5086 total kcals 1.2-2 g protein/kg 84-140 g total protein 20-25 mL/kg 7974-5563 total fluid mLs NUTRITION DIAGNOSIS: Swallowing difficulty r/t respiratory status as evidenced by pt orally intubated, was pending trach placement, s/p self-extubation on 05/22, now on texture modified diet. CURRENT DIET:REGULAR, puree w/ NTL PO DIET RECOMMENDATIONS: Maintain liberalized REGULAR diet/ texture per BANK MANAGER ADDITIONAL RECOMMENDATIONS: 1) Calibrated bed scale wts 2) Rec bowel regimen -> now added 3) Monitor lytes, replete as needed 4) BANK MANAGER f/up regarding texture clarification 5) Monitor PO intake and tolerance Ensure Enlive TID w/ meals w/ 3rd Ensure as pm snack to prevent am hypoglycemia (3) COVID-19 Assessment & Plan: ++ improving repeat (4) COPD (chronic obstructive pulmonary disease) (5) Psychosis (6) Renal failure (ARF), acute on chronic (7) CHF exacerbation (8) Hypoxia (9) Hypocalcemia (10) Bradycardia (11) Dyspnea (12) Dyspnea (13) Respiratory distress (14) Hyperlipidemia (15) Hypothyroidism (16) Hypothyroidism (17) Obese (18) Psychosis (19) Respiratory failure (20) Pneumonia (21) Acute and chronic respiratory failure (22) Diabetes mellitus type 2 in nonobese (23) COVID-19 Assessment & Plan: right arm mass noted seems like small residual hematoma from prior IV line vs infiltration no bleeding no signs of infection no pain will monitor (24) Anemia (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
[2020-06-19 12:00] VITALS: BP 144/51
--- NOTE | 2020-06-19 12:09 | Pulmonology Progress Note ---
Subjective ROS Limited/Unobtainable: Yes Interval Events: s/p pacemaker implant yesterday Constitutional: Denies: fever HEENT: Repors: no symptoms Respiratory: Reports: no symptoms Cardiovascular: Reports: no symptoms Gastrointestinal/Abdominal: Reports: other - had pacemaker placement yesterday Genitourinary: Reports: no symptoms Allergies: Coded Allergies: LITHIUM (Verified Allergy, Unknown, 02/07/19) Objective Last 24 Hour Vital Signs Date Time Temp Pulse Resp B/P (MAP) Pulse Ox O2 Delivery O2 Flow Rate FiO2 06/19/20 11:17 68 20 98 06/19/20 04:00 97.9 68 19 142/50 (80) 97 06/19/20 04:00 68 06/19/20 00:00 72 06/19/20 00:00 97.9 69 19 147/45 (79) 97 06/18/20 21:00 Room Air 06/18/20 20:00 98.1 74 19 126/59 (81) 98 06/18/20 20:00 78 06/18/20 16:37 71 06/18/20 16:10 97.9 68 21 112/55 100 Nasal Cannula 3 06/18/20 16:00 97.8 66 20 164/47 (86) 98 06/18/20 16:00 66 20 127/45 100 Nasal Cannula 3 06/18/20 15:50 67 21 120/43 100 Nasal Cannula 3 06/18/20 15:40 68 21 121/45 100 Simple Mask 6 06/18/20 15:37 89 16 100 06/18/20 15:35 71 17 131/48 100 Simple Mask 6 06/18/20 15:30 97.6 76 20 121/47 100 Simple Mask 6 Intake and Output 06/18/20 06/19/20 19:00 07:00 Intake Total 300 ml 500 ml Output Total 30 ml Balance 270 ml 500 ml Intake Oral 500 ml IV Total 300 ml Estimated Blood Loss 30 ml Objective 06/19 s/p pacemaker implant yesterday; remains on RA 06/18 no change; stable respiration; due for pacemaker implant today 06/17 no change 06/16 no change respiratory-ortega 06/15 no change 06/14 on RA; stable respiratory-ortega 06/11 no change 06/10 remains on room air; off isolation now 06/09 seen in tele; now saturating at 93-94% on room air 06/06 no change 06/05 now on 14L Ventimask saturating at high 90s 05/31 on Venturi mask saturating well 05/29/2020 now on 2 lpm NC saturating at 97%; in transfusion 05/28/2020 in SDU; currently on Venturi mask 14L FiO2 14L saturating well 05/27/2020 in SDU; s/p failed attempt at switching to NC due to patient noncompliance; currently saturating low-mid 90s when she is actually on Venturi mask 14L 05/26/2020 in SDU; keeps taking off her NRB and desats to 79-80% 05/24/2020 in ICUD; restless, saturating ok with NC 05/19/2020 Pt in ICU; full code General Appearance: no acute distress HEENT: normocephalic Respiratory: no respiratory distress, decreased breath sounds Cardiovascular: normal rate Abdomen: soft, non tender, other - obese Extremities: other - b/l 2+ pitting edema Neurologic: disoriented Laboratory Tests 06/19/20 05:00: White Blood Count 6.3, Red Blood Count 2.51L, Hemoglobin 8.4L, Hematocrit 24.9L, Mean Corpuscular Volume 99, Mean Corpuscular Hemoglobin 33.7H, Mean Corpuscular Hemoglobin Concent 34.0, Red Cell Distribution Width 17.1H, Platelet Count 232, Mean Platelet Volume 5.7L, Neutrophils (%) (Auto) 66.6, Lymphocytes (%) (Auto) 22.3, Monocytes (%) (Auto) 7.5, Eosinophils (%) (Auto) 2.6, Basophils (%) (Auto) 1.0, Sodium Level 137, Potassium Level 3.7, Chloride Level 104, Carbon Dioxide Level 27, Anion Gap 6, Blood Urea Nitrogen 26H, Creatinine 1.0, Estimat Glomerular Filtration Rate 53.3, Glucose Level 96, Calcium Level 8.2L, Total Bilirubin 0.4, Aspartate Amino Transf (AST/SGOT) 16, Alanine Aminotransferase (ALT/SGPT) 9L, Alkaline Phosphatase 39L, Total Protein 6.3L, Albumin 2.8L, Globulin 3.5, Albumin/Globulin Ratio 0.8L Current Medications Medications (Trade) Dose Ordered Sig/Angie Route PRN Reason Start Time Stop Time Status Last Admin Dose Admin Acetaminophen (Tylenol) 650 mg Q6H PRN NG Fever >100.5 06/12/20 08:00 07/12/20 07:59 Acetaminophen (Tylenol) 650 mg Q6H PRN NG Mild Pain (Pain Scale 1-3) 06/12/20 08:00 07/12/20 07:59 Acetaminophen/ Codeine Phosphate (Tylenol #3) 1 tab Q4H PRN ORAL Moderate Pain (Pain Scale 4-6) 06/18/20 15:45 06/25/20 15:44 Cefazolin Sodium 1 gm/Dextrose 55 ml @ 110 mls/hr Q8H IVP 06/18/20 23:00 06/25/20 22:59 06/18/20 23:29 Chlorhexidine Gluconate (Ruba-Hex 2%) 1 applic DAILY@1999 TOPIC 06/12/20 20:00 09/10/20 19:59 06/18/20 22:11 Clonidine HCl (Catapres Tab) 0.1 mg Q4H PRN ORAL sbp>170 05/11/20 17:15 08/09/20 17:14 Docusate Sodium (Colace) 100 mg TWICE A DAY ORAL 06/05/20 09:00 07/05/20 08:59 06/19/20 09:35 Furosemide (Lasix) 40 mg DAILY ORAL 06/09/20 09:00 07/09/20 08:59 06/19/20 09:36 Haloperidol Lactate (Haldol) 5 mg Q6H PRN IM Agitation 05/13/20 20:45 06/27/20 20:44 05/28/20 02:40 Heparin Sodium (Porcine) (Heparin 5000 units/ml) 5,000 units EVERY 12 HOURS SUBQ 05/25/20 21:00 07/09/20 20:59 06/19/20 09:37 Lactulose (Cephulac) 20 gm THREE TIMES A DAY ORAL 06/08/20 18:00 07/08/20 17:59 06/19/20 09:35 Lansoprazole (Prevacid) 30 mg BID ORAL 06/05/20 18:00 07/05/20 17:59 06/19/20 09:36 Levothyroxine Sodium (Synthroid) 50 mcg DAILY@0630 ORAL 06/13/20 06:30 07/13/20 06:29 06/17/20 06:41 Morphine Sulfate (Morphine Sulfate) 2 mg Q1H PRN IVP Severe Pain (Pain Scale 7-10) 06/18/20 15:45 06/25/20 15:44 06/18/20 23:28 Ondansetron HCl (Zofran) 4 mg Q6H PRN IVP Nausea & Vomiting 06/18/20 15:45 07/18/20 15:44 Polyethylene Glycol (Miralax) 17 gm BEDTIME ORAL 05/25/20 21:00 06/24/20 20:59 06/18/20 22:13 Quetiapine Fumarate (SEROqueL) 50 mg Q12HR ORAL 06/15/20 09:00 07/24/20 20:59 06/19/20 09:36 Assessment/Plan Assessment/Plan 1. Bilateral COVID-19 multilobar pneumonia. - s/p ETT removal - Afebrile - s/p Azithromycin, Ceftriaxone, dexamethasone, and remdesivir - CXR 05/31 Patchy bilateral airspace consolidations, consistent with m ultifocal infiltrate, similar in appearance to previous study from 05/30; Stable, small bilateral pleural effusions. - COVID-19 PCR 06/02 inconclusive result - COVID-19 PCR 06/04 positive - now off isolation - provide supplemental oxygen as needed 2. Hx of COPD. 3. Schizophrenia/psychosis - On haloperidol per Dr. Hernandez 4. Hypoxia. -Now on room air; saturating well - X-ray chest on 06/07 shows significantly improved bilateral pulmonary infiltrates - Now on oral Lasix 40 mg - off Diamox - recommend continued diuresis with ongoing BUN/Cr monitoring 5. Anemia; improved - Stool OB neg 6. SSS - s/p pacemaker implant (06/18) - no bleeding, or signs of infection DVT ppx The care for this patient was discussed with my supervising physician Time spent for this case was approximately 31 minutes Trae Avilez Jun 19, 2020 12:09 Sincere Myers MD Jun 19, 2020 14:22
--- NOTE | 2020-06-19 12:51 | Nephrology Progress Note ---
Assessment/Plan Problem List: (1) Renal failure (ARF), acute on chronic (2) Hypercapnic respiratory failure (3) CHF exacerbation (4) Anemia Assessment Azotemia/renal failure Acute respiratory failure most likely secondary to CHF, on mechanical ventilation History of COPD Hypertension Hyperlipemia Schizophrenia/psychosis Plan June 19: Labs reviewed. Renal parameters stable. Continue per consultants. June 18: No labs drawn today. Clinically stable. Full code. Continue per consultants. June 17: Labs reviewed. Renal parameters stable. Continue per consultants. June 16: No CHEM panel drawn today. Will check it tomorrow. Continue per consultants. Patient full code. June 15: Labs reviewed. Low potassium addressed. Renal parameters stable. Continue per consultants. June 14: Labs reviewed. Low potassium replaced. Serum creatinine normalized. Continue per consultants. June 13: No labs drawn today. Patient clinically stable. Continue to monitor renal parameters. June 12: Lab reviewed. Renal parameters are stable. Continue per consultants. June 11: Labs reviewed. Low potassium noted and addressed. Continue per consultants. Continue to monitor renal parameters. June 10: No CHEM panel drawn today. Check lab tomorrow. Continue per consultants. On room air oxygen June 09: Labs reviewed. Renal parameters stable. Continue per current treatment plan. June 08: Labs reviewed. Low potassium addressed. Continue per consultants. June 07: Stable renal parameters. Continue per consultants. Overall stable. June 06: Status quo. Remains on Venturi mask. Labs reviewed. Renal parameters stable. Continue per consultants. June 05: Lethargic. On Venturi mask. Labs reviewed. Returning bicarb. Continue to monitor ABG and electrolytes. Low potassium addressed. June 04: Remains on Venturi mask. No can panel done today. ABG results reviewed. Continue per pulmonary. June 03: Poor respiratory status. ABG noted. Patient hypoxic. Renal parameters somewhat stable. Continue per pulmonary. June 02: Labs reviewed. Low phosphorus replaced. Patient has periodic severe bradycardia. Continue per cardiology. June 01: Labs reviewed. Low magnesium replaced. Renal parameters stable. Hemoglobin level reasonable. Continue per consultants. May 31: Labs reviewed. Abnormal electrolytes at rest. Hemoglobin higher. Discussed with DARREL Cooper. Continue per consultants. May 30: Lab reviewed. Potassium and phosphorus replaced. Hemoglobin higher after transfusion. Continue per consultants. May 29: Lab reviewed. Patient anemic. Electrolyte abnormalities reviewed and addressed. Continue per consultants. Remains stable from renal standpoint of view. May 28: Patient was not transfused despite of my order since yesterday. Will defer transfusion to PMD/negative assembler. Patient remains stable from renal standpoint of view. Continue per consultants. Discussed with Marlene nursing charge in [place]. May 27: Remains on Venturi mask. Labs reviewed. Abnormal electrolytes addressed. Hemoglobin low. Will transfuse 1 unit of packed RBCs today May 26: On Venturi mask. Labs reviewed. Abnormal electrolytes addressed. Continue per consultants and pulmonary support. May 25: On Venturi mask. Lethargic. No labs drawn today. Will monitor r enal parameters. Per orders. May 24: Remains extubated. Will start on diet with high alert for possible aspiration. Continue to monitor renal parameters. May 23: Continues to be extubated. On nonrebreathing mask. Labs reviewed. Renal parameters stable. Discussed with RN. Continue per current management. May 22: Now extubated on nonrebreathing mask. Labs reviewed. Renal parameters stable. Abnormal electrolytes addressed. Discussed with RN. May 21: Remains intubated. Labs reviewed. Abnormal electrolytes addressed. Discussed with RN. May 20: Remains intubated. Abnormal electrolyte noted on today's lab results and addressed. Continue per consultants. May 19: Patient remains intubated. Labs reviewed. Abnormal electrolytes addressed. Continue per current management. May 18: Patient seen in ICU. Remains intubated. Weaning is being tried. Discussed with RN. Labs reviewed. Abnormal electrolyte addressed. Continue per consultants. May 17: Labs reviewed. Remains intubated. Stable from renal standpoint of view. Continue weaning. Discussed with RN. May 16: Labs reviewed. Remains intubated. Remains full code. Stable from renal standpoint of view. Abnormal electrolytes addressed. May 15: Labs reviewed. Renal parameters stable. Discussed with RN. Patient remains intubated on ventilator and full code. Continue per consulta nts. May 14: Labs reviewed. Discussed with RN. Abnormal electrolyte addressed. Continue per current management. Patient seen in ICU. Discussed with RN. Today's labs pending. Patient remains on 6 mics of dopamine. Pulmonary support Monitor intake and output Monitor electrolytes Continue per consultants Per orders Subjective ROS Limited/Unobtainable: No Constitutional: Reports: malaise, weakness Objective Objective Last 24 Hour Vital Signs Date Time Temp Pulse Resp B/P (MAP) Pulse Ox O2 Delivery O2 Flow Rate FiO2 06/19/20 11:17 68 20 98 06/19/20 09:00 Room Air 06/19/20 04:00 97.9 68 19 142/50 (80) 97 06/19/20 04:00 68 06/19/20 00:00 72 06/19/20 00:00 97.9 69 19 147/45 (79) 97 06/18/20 21:00 Room Air 06/18/20 20:00 98.1 74 19 126/59 (81) 98 06/18/20 20:00 78 06/18/20 16:37 71 06/18/20 16:10 97.9 68 21 112/55 100 Nasal Cannula 3 06/18/20 16:00 97.8 66 20 164/47 (86) 98 06/18/20 16:00 66 20 127/45 100 Nasal Cannula 3 06/18/20 15:50 67 21 120/43 100 Nasal Cannula 3 06/18/20 15:40 68 21 121/45 100 Simple Mask 6 06/18/20 15:37 89 16 100 06/18/20 15:35 71 17 131/48 100 Simple Mask 6 06/18/20 15:30 97.6 76 20 121/47 100 Simple Mask 6 Intake and Output 06/18/20 06/19/20 19:00 07:00 Intake Total 300 ml 500 ml Output Total 30 ml Balance 270 ml 500 ml Intake Oral 500 ml IV Total 300 ml Estimated Blood Loss 30 ml Current Medications Medications (Trade) Dose Ordered Sig/Angie Route PRN Reason Start Time Stop Time Status Last Admin Dose Admin Acetaminophen (Tylenol) 650 mg Q6H PRN NG Fever >100.5 06/12/20 08:00 07/12/20 07:59 Acetaminophen (Tylenol) 650 mg Q6H PRN NG Mild Pain (Pain Scale 1-3) 06/12/20 08:00 07/12/20 07:59 Acetaminophen/ Codeine Phosphate (Tylenol #3) 1 tab Q4H PRN ORAL Moderate Pain (Pain Scale 4-6) 06/18/20 15:45 06/25/20 15:44 Cefazolin Sodium 1 gm/Dextrose 55 ml @ 110 mls/hr Q8H IVP 06/18/20 23:00 06/25/20 22:59 06/18/20 23:29 Chlorhexidine Gluconate (Ruba-Hex 2%) 1 applic DAILY@2000 TOPIC 06/12/20 20:00 09/10/20 19:59 06/18/20 22:11 Clonidine HCl (Catapres Tab) 0.1 mg Q4H PRN ORAL sbp>170 05/11/20 17:15 08/09/20 17:14 Docusate Sodium (Colace) 100 mg TWICE A DAY ORAL 06/05/20 09:00 07/05/20 08:59 06/19/20 09:35 Furosemide (Lasix) 40 mg DAILY ORAL 06/09/20 09:00 07/09/20 08:59 06/19/20 09:36 Haloperidol Lactate (Haldol) 5 mg Q6H PRN IM Agitation 05/13/20 20:45 06/27/20 20:44 05/28/20 02:40 Heparin Sodium (Porcine) (Heparin 5000 units/ml) 5,000 units EVERY 12 HOURS SUBQ 05/25/20 21:00 07/09/20 20:59 06/19/20 09:37 Lactulose (Cephulac) 20 gm THREE TIMES A DAY ORAL 06/08/20 18:00 07/08/20 17:59 06/19/20 09:35 Lansoprazole (Prevacid) 30 mg BID ORAL 06/05/20 18:00 07/05/20 17:59 06/19/20 09:36 Levothyroxine Sodium (Synthroid) 50 mcg DAILY@0630 ORAL 06/13/20 06:30 07/13/20 06:29 06/17/20 06:41 Morphine Sulfate (Morphine Sulfate) 2 mg Q1H PRN IVP Severe Pain (Pain Scale 7-10) 06/18/20 15:45 06/25/20 15:44 06/18/20 23:28 Ondansetron HCl (Zofran) 4 mg Q6H PRN IVP Nausea & Vomiting 06/18/20 15:45 07/18/20 15:44 Polyethylene Glycol (Miralax) 17 gm BEDTIME ORAL 05/25/20 21:00 06/24/20 20:59 06/18/20 22:13 Quetiapine Fumarate (SEROqueL) 50 mg Q12HR ORAL 06/15/20 09:00 07/24/20 20:59 06/19/20 09:36 Laboratory Tests 06/19/20 05:00: White Blood Count 6.3, Red Blood Count 2.51L, Hemoglobin 8.4L, Hematocrit 24.9L, Mean Corpuscular Volume 99, Mean Corpuscular Hemoglobin 33.7H, Mean Corpuscular Hemoglobin Concent 34.0, Red Cell Distribution Width 17.1H, Platelet Count 232, Mean Platelet Volume 5.7L, Neutrophils (%) (Auto) 66.6, Lymphocytes (%) (Auto) 22.3, Monocytes (%) (Auto) 7.5, Eosinophils (%) (Auto) 2.6, Basophils (%) (Auto) 1.0, Sodium Level 137, Potassium Level 3.7, Chloride Level 104, Carbon Dioxide Level 27, Anion Gap 6, Blood Urea Nitrogen 26H, Creatinine 1.0, Estimat Glomerular Filtration Rate 53.3, Glucose Level 96, Calcium Level 8.2L, Total Bilirubin 0.4, Aspartate Amino Transf (AST/SGOT) 16, Alanine Aminotransferase (ALT/SGPT) 9L, Alkaline Phosphatase 39L, Total Protein 6.3L, Albumin 2.8L, Globulin 3.5, Albumin/Globulin Ratio 0.8L Height (Feet): 5 Height (Inches): 3.00 Weight (Pounds): 183 Cardiovascular: normal rate Respiratory/Chest: decreased breath sounds Abdomen: distended Bryan Ochoa MD Jun 19, 2020 12:51
[2020-06-19 16:00] VITALS: BP 121/48
--- NOTE | 2020-06-19 16:00 | Cardiac Electrophysiology PN ---
Assessment/Plan Assessment/Plan 1. Covid PNA and respiratory failure. S/P Remdesevir and Dexamethasone Self extubated on RA. Off Abx per ID. On Lasix [address] Myers Now off isolation 2. SSS with 8 pauses of more than 3 seconds including 9 and 10 second pauses off any QUEZADA or AVN blockers. DW patients public Guardian, Mr. Mohit Hyatt at [phone] who stated the conservator is actually Mr Manpreet Wyatt Mr Mohit Hyatt also stated that he was covering dasha Lazo at [phone] who agreed to proceed with 2 physician consent per hospital policy S /P DDD [facility] PPM implant 06/18/20. Interrogation today showed Nl Fx. Pacer site no hematoma CXR No Ptx 3. Hypotension. Off Dopamine. EF 55% 4. Schizophrenia and psychosis. 5. S/P MRSA & Klebsiella pneumonia DW RN DW dasha Blandon at [phone] and made aware that PPM was done successfully Subjective Subjective Self extubated on 05/22/20 off Covid isolation. Had multiple pauses of more than 3 seconds including a 4s and 7s and a 10 second pause at 1 AM on 05/31 Had pauses of 7, 8 and 6 seconds again 06/01/20 On RA in restraints. S/P RUE PICC line DW patients public Guardian, Mr. Mohit Hyatt at [phone] and the conservator Mr. Manpreet Wyatt [phone] S/P DDD [facility] pacer implantation 06/18/20 and was interrogated today that showed Nl Fx Objective Last 24 Hour Vital Signs Date Time Temp Pulse Resp B/P (MAP) Pulse Ox O2 Delivery O2 Flow Rate FiO2 06/19/20 12:00 85 06/19/20 12:00 97.5 79 20 144/51 (82) 96 06/19/20 11:17 68 20 98 06/19/20 09:00 Room Air 06/19/20 08:00 97.7 78 18 110/55 (73) 97 06/19/20 08:00 79 06/19/20 04:00 97.9 68 19 142/50 (80) 97 06/19/20 04:00 68 06/19/20 00:00 72 06/19/20 00:00 97.9 69 19 147/45 (79) 97 06/18/20 21:00 Room Air 06/18/20 20:00 98.1 74 19 126/59 (81) 98 06/18/20 20:00 78 06/18/20 16:37 71 06/18/20 16:10 97.9 68 21 112/55 100 Nasal Cannula 3 06/18/20 16:00 97.8 66 20 164/47 (86) 98 06/18/20 16:00 66 20 127/45 100 Nasal Cannula 3 Intake and Output 06/18/20 06/19/20 19:00 07:00 Intake Total 300 ml 500 ml Output Total 30 ml Balance 270 ml 500 ml Intake Oral 500 ml IV Total 300 ml Estimated Blood Loss 30 ml Laboratory Tests Test 06/19/20 05:00 White Blood Count 6.3 K/UL (4.8-10.8) Red Blood Count 2.51 M/UL (4.20-5.40) L Hemoglobin 8.4 G/DL (12.0-16.0) L Hematocrit 24.9 % (37.0-47.0) L Mean Corpuscular Volume 99 FL (80-99) Mean Corpuscular Hemoglobin 33.7 PG (27.0-31.0) H Mean Corpuscular Hemoglobin Concent 34.0 G/DL (32.0-36.0) Red Cell Distribution Width 17.1 % (11.6-14.8) H Platelet Count 232 K/UL (150-450) Mean Platelet Volume 5.7 FL (6.5-10.1) L Neutrophils (%) (Auto) 66.6 % (45.0-75.0) Lymphocytes (%) (Auto) 22.3 % (20.0-45.0) Monocytes (%) (Auto) 7.5 % (1.0-10.0) Eosinophils (%) (Auto) 2.6 % (0.0-3.0) Basophils (%) (Auto) 1.0 % (0.0-2.0) Sodium Level 137 MMOL/L (136-145) Potassium Level 3.7 MMOL/L (3.5-5.1) Chloride Level 104 MMOL/L (98-107) Carbon Dioxide Level 27 MMOL/L (21-32) Anion Gap 6 mmol/L (5-15) Blood Urea Nitrogen 26 mg/dL (7-18) H Creatinine 1.0 MG/DL (0.55-1.30) Estimat Glomerular Filtration Rate 53.3 mL/min (>60) Glucose Level 96 MG/DL (74-106) Calcium Level 8.2 MG/DL (8.5-10.1) L Total Bilirubin 0.4 MG/DL (0.2-1.0) Aspartate Amino Transf (AST/SGOT) 16 U/L (15-37) Alanine Aminotransferase (ALT/SGPT) 9 U/L (12-78) L Alkaline Phosphatase 39 U/L (46-116) L Total Protein 6.3 G/DL (6.4-8.2) L Albumin 2.8 G/DL (3.4-5.0) L Globulin 3.5 g/dL Albumin/Globulin Ratio 0.8 (1.0-2.7) L Objective HEAD AND NECK: Positive JVD. LUNGS: Decreased breath sounds. CARDIOVASCULAR: Regular S1 and S2 with no gallop.Pacer left subclavian with no hematoma ABDOMEN: Obese. EXTREMITIES: Bilateral 2+ pitting edema. Cameron Davies MD Jun 19, 2020 16:00
--- NOTE | 2020-06-19 19:16 | General Progress Note ---
Subjective Allergies: Coded Allergies: LITHIUM (Verified Allergy, Unknown, 02/07/19) Subjective above noted s/p pacemaker d/w RN refusing some meds, including laxatives no BM recorded for several days Objective Last 24 Hour Vital Signs Date Time Temp Pulse Resp B/P (MAP) Pulse Ox O2 Delivery O2 Flow Rate FiO2 06/19/20 16:00 78 06/19/20 16:00 97.9 79 18 121/48 (72) 97 06/19/20 12:00 85 06/19/20 12:00 97.5 79 20 144/51 (82) 96 06/19/20 11:17 68 20 98 06/19/20 09:00 Room Air 06/19/20 08:00 97.7 78 18 110/55 (73) 97 06/19/20 08:00 79 06/19/20 04:00 97.9 68 19 142/50 (80) 97 06/19/20 04:00 68 06/19/20 00:00 72 06/19/20 00:00 97.9 69 19 147/45 (79) 97 06/18/20 21:00 Room Air 06/18/20 20:00 98.1 74 19 126/59 (81) 98 06/18/20 20:00 78 Intake and Output 06/18/20 06/19/20 19:00 07:00 Intake Total 300 ml 500 ml Output Total 30 ml Balance 270 ml 500 ml Intake Oral 500 ml IV Total 300 ml Estimated Blood Loss 30 ml Laboratory Tests 06/19/20 05:00: White Blood Count 6.3, Red Blood Count 2.51L, Hemoglobin 8.4L, Hematocrit 24.9L, Mean Corpuscular Volume 99, Mean Corpuscular Hemoglobin 33.7H, Mean Corpuscular Hemoglobin Concent 34.0, Red Cell Distribution Width 17.1H, Platelet Count 232, Mean Platelet Volume 5.7L, Neutrophils (%) (Auto) 66.6, Lymphocytes (%) (Auto) 22.3, Monocytes (%) (Auto) 7.5, Eosinophils (%) (Auto) 2.6, Basophils (%) (Auto) 1.0, Sodium Level 137, Potassium Level 3.7, Chloride Level 104, Carbon Dioxide Level 27, Anion Gap 6, Blood Urea Nitrogen 26H, Creatinine 1.0, Estimat Sepideh merular Filtration Rate 53.3, Glucose Level 96, Calcium Level 8.2L, Total Bilirubin 0.4, Aspartate Amino Transf (AST/SGOT) 16, Alanine Aminotransferase (ALT/SGPT) 9L, Alkaline Phosphatase 39L, Total Protein 6.3L, Albumin 2.8L, Globulin 3.5, Albumin/Globulin Ratio 0.8L Height (Feet): 5 Height (Inches): 3.00 Weight (Pounds): 183 Objective WDWN WW NCAT CTA RR abd soft no edema Assessment/Plan Status: progressing, unchanged, deteriorating Assessment/Plan: Assessment/Plan (1) Hypertension (2) Schizophrenia (3) Hyperlipidemia (4) Parkinson disease (5) Anemia (6) Obese (7) COVID (+) (8) Hypoxia (9) arrhythmia, s/p pacer (10) constipation Recommendations PPI BID Follow H&H Transfuse to keep Hg>7.0 po as tolerated GI procedures at a later date, if needed More laxatives Aria Chicas MD Jun 19, 2020 19:16
[2020-06-19] MEDS ORDERED: Sorbitol Solution UD 30ml ORAL SCH (19:30)
[2020-06-19 20:00] VITALS: BP 105/71
--- NOTE | 2020-06-19 20:19 | General Progress Note ---
Subjective ROS Limited/Unobtainable: Yes Allergies: Coded Allergies: LITHIUM (Verified Allergy, Unknown, 02/07/19) Objective Last 24 Hour Vital Signs Date Time Temp Pulse Resp B/P (MAP) Pulse Ox O2 Delivery O2 Flow Rate FiO2 06/19/20 16:00 78 06/19/20 16:00 97.9 79 18 121/48 (72) 97 06/19/20 12:00 85 06/19/20 12:00 97.5 79 20 144/51 (82) 96 06/19/20 11:17 68 20 98 06/19/20 09:00 Room Air 06/19/20 08:00 97.7 78 18 110/55 (73) 97 06/19/20 08:00 79 06/19/20 04:00 97.9 68 19 142/50 (80) 97 06/19/20 04:00 68 06/19/20 00:00 72 06/19/20 00:00 97.9 69 19 147/45 (79) 97 06/18/20 21:00 Room Air Intake and Output 06/18/20 06/19/20 19:00 07:00 Intake Total 300 ml 500 ml Output Total 30 ml Balance 270 ml 500 ml Intake Oral 500 ml IV Total 300 ml Estimated Blood Loss 30 ml Laboratory Tests 06/19/20 05:00: White Blood Count 6.3, Red Blood Count 2.51L, Hemoglobin 8.4L, Hematocrit 24.9L, Mean Corpuscular Volume 99, Mean Corpuscular Hemoglobin 33.7H, Mean Corpuscular Hemoglobin Concent 34.0, Red Cell Distribution Width 17.1H, Platelet Count 232, Mean Platelet Volume 5.7L, Neutrophils (%) (Auto) 66.6, Lymphocytes (%) (Auto) 22.3, Monocytes (%) (Auto) 7.5, Eosinophils (%) (Auto) 2.6, Basophils (%) (Auto) 1.0, Sodium Level 137, Potassium Level 3.7, Chloride Level 104, Carbon Dioxide Level 27, Anion Gap 6, Blood Urea Nitrogen 26H, Creatinine 1.0, Estimat Glomerular Filtration Rate 53.3, Glucose Level 96, Calcium Level 8.2L, Total Bilirubin 0.4, Aspartate Amino Transf (AST/SGOT) 16, Alanine Aminotransferase (ALT/SGPT) 9L, Alkaline Phosphatase 39L, Total Protein 6.3L, Albumin 2.8L, Globulin 3.5, Albumin/Globulin Ratio 0.8L Height (Feet): 5 Height (Inches): 3.00 Weight (Pounds): 183 Assessment/Plan Problem List: (1) Anemia ICD Codes: D64.9 - Anemia, unspecified SNOMED: 074779348 (2) Hypercapnic respiratory failure ICD Codes: J96.92 - Respiratory failure, unspecified with hypercapnia SNOMED: 760810604 (3) COVID-19 ICD Codes: U07.1 - COVID-19 SNOMED: 768715654 (4) COPD (chronic obstructive pulmonary disease) ICD Codes: J44.9 - Chronic obstructive pulmonary disease, unspecified SNOMED: 67888705 (5) Psychosis ICD Codes: F29 - Unspecified psychosis not due to a substance or known physiological condition SNOMED: 95599690 (6) Hypoxia ICD Codes: R09.02 - Hypoxemia SNOMED: 170412767 (7) Renal failure (ARF), acute on chronic ICD Codes: N17.9 - Acute kidney failure, unspecified; N18.9 - Chronic kidney disease, unspecified SNOMED: 443664486 (8) CHF exacerbation ICD Codes: I50.9 - Heart failure, unspecified SNOMED: 996476526, 10189075290308 Status: progressing, unchanged, deteriorating Assessment/Plan: s/p bradycardia and pause s/p pacemaker azotemia copd pna chf dc planning check lytes afebrile Dani Perera MD Jun 19, 2020 20:19
[2020-06-19] MEDS: Miralax 17gm pkt ORAL SCH (21:00)
[2020-06-19] MEDS: Dyna-Hex 2% Top Sol 2oz TOPIC SCH (21:45)
[2020-06-20] VITALS: BP 128/88
[2020-06-20 04:00] VITALS: BP 99/61
[2020-06-20 06:27] LABS: BASOPHILS % (AUTO) 0.7 % (0.0-2.0); HEMATOCRIT 24.9 % (37.0-47.0); HEMOGLOBIN 8.3 G/DL (12.0-16.0); LYMPHOCYTES % (AUTO) 25.9 % (20.0-45.0); MEAN CORPUSCULAR VOLUME 100 FL (80-99); MONOCYTES % (AUTO) 6.2 % (1.0-10.0); NEUTROPHILS % (AUTO) 65.4 % (45.0-75.0); PLATELET COUNT 189 K/UL (150-450); RED BLOOD COUNT 2.49 M/UL (4.20-5.40); WHITE BLOOD COUNT 7.6 K/UL (4.8-10.8)
[2020-06-20 06:54] LABS: CALCIUM 8.2 MG/DL (8.5-10.1); POTASSIUM 3.9 MMOL/L (3.5-5.1)
[2020-06-20] MEDS: ceFAZolin sod 1 GM in D5W 55 ML IVP SCH ×2 (07:00→09:38)
[2020-06-20 08:00] VITALS: BP 140/72
[2020-06-20] MEDS: Sorbitol Solution UD 30ml ORAL SCH ×2 (08:30→08:58)
[2020-06-20] MEDS: Docusate 100mg/10ml Liq ORAL SCH ×2 (08:45→17:26)
[2020-06-20] MEDS: Lactulose 20gm/30ml UDC ORAL SCH ×3 (08:45→17:26)
[2020-06-20] MEDS: Furosemide 40mg tab ORAL SCH (08:46)
[2020-06-20] MEDS: Heparin 5000 units/ml inj SUBQ SCH ×2 (08:47→21:07)
--- NOTE | 2020-06-20 10:16 | Nephrology Progress Note ---
Assessment/Plan Problem List: (1) Renal failure (ARF), acute on chronic (2) Hypercapnic respiratory failure (3) CHF exacerbation (4) Anemia Assessment Azotemia/renal failure Acute respiratory failure most likely secondary to CHF, on mechanical ventilation History of COPD Hypertension Hyperlipemia Schizophrenia/psychosis Plan June 20: Labs reviewed. Renal parameters stable. Continue per consultants. June 19: Labs reviewed. Renal parameters stable. Continue per consultants. June 18: No labs drawn today. Clinically stable. Full code. Continue per consultants. June 17: Labs reviewed. Renal parameters stable. Continue per consultants. June 16: No CHEM panel drawn today. Will check it tomorrow. Continue per consultants. Patient full code. June 15: Labs reviewed. Low potassium addressed. Renal parameters stable. Continue per consultants. June 14: Labs reviewed. Low potassium replaced. Serum creatinine normalized. Continue per consultants. June 13: No labs drawn today. Patient clinically stable. Continue to monitor renal parameters. June 12: Lab reviewed. Renal parameters are stable. Continue per consultants. June 11: Labs reviewed. Low potassium noted and addressed. Continue per consultants. Continue to monitor renal parameters. June 10: No CHEM panel drawn today. Check lab tomorrow. Continue per consultants. On room air oxygen June 09: Labs reviewed. Renal parameters stable. Continue per current treatment plan. June 08: Labs reviewed. Low potassium addressed. Continue per consultants. June 07: Stable renal parameters. Continue per consultants. Overall stable. June 06: Status quo. Remains on Venturi mask. Labs reviewed. Renal parameters stable. Continue per consultants. June 05: Lethargic. On Venturi mask. Labs reviewed. Returning bicarb. Continue to monitor ABG and electrolytes. Low potassium addressed. June 04: Remains on Venturi mask. No can panel done today. ABG results reviewed. Continue per pulmonary. June 03: Poor respiratory status. ABG noted. Patient hypoxic. Renal parameters somewhat stable. Continue per pulmonary. June 02: Labs reviewed. Low phosphorus replaced. Patient has periodic severe bradycardia. Continue per cardiology. June 01: Labs reviewed. Low magnesium replaced. Renal parameters stable. Hemoglobin level reasonable. Continue per consultants. May 31: Labs reviewed. Abnormal electrolytes at rest. Hemoglobin higher. Discussed with DARREL Cooper. Continue per consultants. May 30: Lab reviewed. Potassium and phosphorus replaced. Hemoglobin higher after transfusion. Continue per consultants. May 29: Lab reviewed. Patient anemic. Electrolyte abnormalities reviewed and addressed. Continue per consultants. Remains stable from renal standpoint of view. May 28: Patient was not transfused despite of my order since yesterday. Will defer transfusion to PMD/workplace relations adviser. Patient remains stable from renal standpoint of view. Continue per consultants. Discussed with Marlene nursing charge in [place]. May 27: Remains on Venturi mask. Labs reviewed. Abnormal electrolytes addressed. Hemoglobin low. Will transfuse 1 unit of packed RBCs today May 26: On Venturi mask. Labs reviewed. Abnormal electrolytes addressed. Continue per consultants and pulmonary support. May 25: On Venturi mask. Lethargic. No labs drawn today. Will monitor renal parameters. Per orders. May 24: Remains extubated. Will start on diet with high alert for possible aspiration. Continue to monitor renal parameters. May 23: Continues to be extubated. On nonrebreathing mask. Labs reviewed. Renal parameters stable. Discussed with RN. Continue per current management. May 22: Now extubated on nonrebreathing mask. Labs reviewed. Renal parameters stable. Abnormal electrolytes addressed. Discussed with RN. May 21: Remains intubated. Labs reviewed. Abnormal electrolytes addressed. Discussed with RN. May 20: Remains intubated. Abnormal electrolyte noted on today's lab results and addressed. Continue per consultants. May 19: Patient remains intubated. Labs reviewed. Abnormal electrolytes addressed. Continue per current management. May 18: Patient seen in ICU. Remains intubated. Weaning is being tried. Discussed with RN. Labs reviewed. Abnormal electrolyte addressed. Continue per consultants. May 17: Labs reviewed. Remains intubated. Stable from renal standpoint of view. Continue weaning. Discussed with RN. May 16: Labs reviewed. Remains intubated. Remains full code. Stable from renal standpoint of view. Abnormal electrolytes addressed. May 15: Labs reviewed. Renal parameters stable. Discussed with RN. Patient remains intubated on ventilator and full code. Continue per consultants. May 14: Labs reviewed. Discussed with RN. Abnormal electrolyte addressed. Continue per current management. Patient seen in ICU. Discussed with RN. Today's labs pending. Patient remains on 6 mics of dopamine. Pulmonary support Monitor intake and output Monitor electrolytes Continue per consultants Per orders Subjective ROS Limited/Unobtainable: No Constitutional: Reports: malaise, weakness Objective Objective Last 24 Hour Vital Signs Date Time Temp Pulse Resp B/P (MAP) Pulse Ox O2 Delivery O2 Flow Rate FiO2 06/20/20 09:00 Room Air 06/20/20 08:00 97.5 80 18 140/72 (94) 95 06/20/20 08:00 75 06/20/20 04:00 98.1 79 16 99/61 (74) 94 06/20/20 04:00 68 06/20/20 00:00 98.0 66 16 128/88 (101) 95 06/20/20 00:00 70 06/19/20 21:00 Room Air 06/19/20 20:00 97.6 68 16 105/71 (82) 93 06/19/20 20:00 69 06/19/20 19:12 95 Room Air 21 06/19/20 16:00 78 06/19/20 16:00 97.9 79 18 121/48 (72) 97 06/19/20 12:00 85 06/19/20 12:00 97.5 79 20 144/51 (82) 96 06/19/20 11:17 68 20 98 Intake and Output 06/19/20 06/20/20 19:00 07:00 Intake Total 240 ml Balance 240 ml Intake Oral 240 ml # Voids 3 2 Current Medications Medications (Trade) Dose Ordered Sig/Angie Route PRN Reason Start Time Stop Time Status Last Admin Dose Admin Acetaminophen (Tylenol) 650 mg Q6H PRN NG Fever >100.5 06/12/20 08:00 07/12/20 07:59 Acetaminophen (Tylenol) 650 mg Q6H PRN NG Mild Pain (Pain Scale 1-3) 06/12/20 08:00 07/12/20 07:59 Acetaminophen/ Codeine Phosphate (Tylenol #3) 1 tab Q4H PRN ORAL Moderate Pain (Pain Scale 4-6) 06/18/20 15:45 06/25/20 15:44 Cefazolin Sodium 1 gm/Dextrose 55 ml @ 110 mls/hr Q8H IVP 06/18/20 23:00 06/25/20 22:59 06/19/20 23:04 Chlorhexidine Gluconate (Ruba-Hex 2%) 1 applic DAILY@2000 TOPIC 06/12/20 20:00 09/10/20 19:59 1/7/21 21:45 Clonidine HCl (Catapres Tab) 0.1 mg Q4H PRN ORAL sbp>170 05/11/20 17:15 08/09/20 17:14 Docusate Sodium (Colace) 100 mg TWICE A DAY ORAL 06/05/20 09:00 07/05/20 08:59 06/19/20 18:37 Furosemide (Lasix) 40 mg DAILY ORAL 06/09/20 09:00 07/09/20 08:59 06/19/20 09:36 Haloperidol Lactate (Haldol) 5 mg Q6H PRN IM Agitation 05/13/20 20:45 06/27/20 20:44 05/28/20 02:40 Heparin Sodium (Porcine) (Heparin 5000 units/ml) 5,000 units EVERY 12 HOURS SUBQ 05/25/20 21:00 07/09/20 20:59 06/19/20 21:45 Lactulose (Cephulac) 20 gm THREE TIMES A DAY ORAL 06/08/20 18:00 07/08/20 17:59 06/19/20 18:37 Lansoprazole (Prevacid) 30 mg BID ORAL 06/05/20 18:00 07/05/20 17:59 06/19/20 18:37 Levothyroxine Sodium (Synthroid) 50 mcg DAILY@0630 ORAL 06/13/20 06:30 07/13/20 06:29 06/17/20 06:41 Morphine Sulfate (Morphine Sulfate) 2 mg Q1H PRN IVP Severe Pain (Pain Scale 7-10) 06/18/20 15:45 06/25/20 15:44 06/18/20 23:28 Ondansetron HCl (Zofran) 4 mg Q6H PRN IVP Nausea & Vomiting 06/18/20 15:45 07/18/20 15:44 Polyethylene Glycol (Miralax) 17 gm BEDTIME ORAL 05/25/20 21:00 06/24/20 20:59 06/18/20 22:13 Quetiapine Fumarate (SEROqueL) 50 mg Q12HR ORAL 06/15/20 09:00 07/24/20 20:59 06/19/20 09:36 Laboratory Tests 06/20/20 05:58: White Blood Count 7.6, Red Blood Count 2.49L, Hemoglobin 8.3L, Hematocrit 24.9L, Mean Corpuscular Volume 100H, Mean Corpuscular Hemoglobin 33.3H, Mean C orpuscular Hemoglobin Concent 33.4, Red Cell Distribution Width 17.0H, Platelet Count 189, Mean Platelet Volume 6.4L, Neutrophils (%) (Auto) 65.4, Lymphocytes (%) (Auto) 25.9, Monocytes (%) (Auto) 6.2, Eosinophils (%) (Auto) 2.0, Basophils (%) (Auto) 0.7, Sodium Level 139, Potassium Level 3.9, Chloride Level 107, Carbon Dioxide Level 26, Anion Gap 6, Blood Urea Nitrogen 23H, Creatinine 1.0, Estimat Glomerular Filtration Rate 53.3, Glucose Level 85, Calcium Level 8.2L Height (Feet): 5 Height (Inches): 3.00 Weight (Pounds): 183 General Appearance: no apparent distress Cardiovascular: normal rate Respiratory/Chest: decreased breath sounds Abdomen: soft Bryan Ochoa MD Jun 20, 2020 10:16
--- NOTE | 2020-06-20 10:57 | Surgery Progress Note ---
Surgery Progress Note Subjective Additional Comments Patient seen and examined bedside. No acute events. Resting comfortably. Labs reviewed micro reviewed imaging reviewed. Afebrile hemodynamically stable at this time Objective Last 24 Hour Vital Signs Date Time Temp Pulse Resp B/P (MAP) Pulse Ox O2 Delivery O2 Flow Rate FiO2 06/20/20 09:00 Room Air 06/20/20 08:00 97.5 80 18 140/72 (94) 95 06/20/20 08:00 75 06/20/20 04:00 98.1 79 16 99/61 (74) 94 06/20/20 04:00 68 06/20/20 00:00 98.0 66 16 128/88 (101) 95 06/20/20 00:00 70 06/19/20 21:00 Room Air 06/19/20 20:00 97.6 68 16 105/71 (82) 93 06/19/20 20:00 69 06/19/20 19:12 95 Room Air 21 06/19/20 16:00 78 06/19/20 16:00 97.9 79 18 121/48 (72) 97 06/19/20 12:00 85 06/19/20 12:00 97.5 79 20 144/51 (82) 96 06/19/20 11:17 68 20 98 I&O Intake and Output 06/19/20 06/20/20 19:00 07:00 Intake Total 240 ml Balance 240 ml Intake Oral 240 ml # Voids 3 2 Dressing: saturated Cardiovascular: RSR Respiratory: clear, decreased breath sounds Abdomen: soft, non-tender, present bowel sounds, other Extremities: no edema, no tenderness, no cyanosis Laboratory Tests Test 06/20/20 05:58 White Blood Count 7.6 K/UL (4.8-10.8) Red Blood Count 2.49 M/UL (4.20-5.40) L Hemoglobin 8.3 G/DL (12.0-16.0) L Hematocrit 24.9 % (37.0-47.0) L Mean Corpuscular Volume 100 FL (80-99) H Mean Corpuscular Hemoglobin 33.3 PG (27.0-31.0) H Mean Corpuscular Hemoglobin Concent 33.4 G/DL (32.0-36.0) Red Cell Distribution Width 17.0 % (11.6-14.8) H Platelet Count 189 K/UL (150-450) Mean Platelet Volume 6.4 FL (6.5-10.1) L Neutrophils (%) (Auto) 65.4 % (45.0-75.0) Lymphocytes (%) (Auto) 25.9 % (20.0-45.0) Monocytes (%) (Auto) 6.2 % (1.0-10.0) Eosinophils (%) (Auto) 2.0 % (0.0-3.0) Basophils (%) (Auto) 0.7 % (0.0-2.0) Sodium Level 139 MMOL/L (136-145) Potassium Level 3.9 MMOL/L (3.5-5.1) Chloride Level 107 MMOL/L (98-107) Carbon Dioxide Level 26 MMOL/L (21-32) Anion Gap 6 mmol/L (5-15) Blood Urea Nitrogen 23 mg/dL (7-18) H Creatinine 1.0 MG/DL (0.55-1.30) Estimat Glomerular Filtration Rate 53.3 mL/min (>60) Glucose Level 85 MG/DL (74-106) Calcium Level 8.2 MG/DL (8.5-10.1) L Plan Problems: (1) Anemia (2) Hypercapnic respiratory failure Assessment & Plan: respiratory insufficiency requiring prolonged ventilatory support unable to wean vent safely after multiple attempts discussed with pcp. discussed with pulm discussed with patient guardian. patient unable to consent. no nok or poa. given critical care and condition not recommended to await court decision which during pandemic can take long time. medically necessary to proceed with trach in patients best interest. self extubated will monitor DAILY ESTIMATED NEEDS: Needs based on Critical care, 70kg abw 22-28 kcals/kg 4848-0863 total kcals 1.2-2 g protein/kg 84-140 g total protein 20-25 mL/kg 4471-6583 total fluid mLs NUTRITION DIAGNOSIS: Swallowing difficulty r/t respiratory status as evidenced by pt orally intubated, was pending trach placement, s/p self-extubation on 05/22, now on texture modified diet. CURRENT DIET:REGULAR, puree w/ NTL PO DIET RECOMMENDATIONS: Maintain liberalized REGULAR diet/ texture per PHARMACY TECHNICIAN TRAINEE ADDITIONAL RECOMMENDATIONS: 1) Calibrated bed scale wts 2) Rec bowel regimen -> now added 3) Monitor lytes, replete as needed 4) PHARMACY TECHNICIAN TRAINEE f/up regarding texture clarification 5) Monitor PO intake and tolerance Ensure Enlive TID w/ meals w/ 3rd Ensure as pm snack to prevent am hypoglycemia (3) COVID-19 Assessment & Plan: ++ improving repeat (4) COPD (chronic obstructive pulmonary disease) (5) Psychosis (6) Renal failure (ARF), acute on chronic (7) CHF exacerbation (8) Hypoxia (9) Hypocalcemia (10) Bradycardia (11) Dyspnea (12) Dyspnea (13) Respiratory distress (14) Hyperlipidemia (15) Hypothyroidism (16) Hypothyroidism (17) Obese (18) Psychosis (19) Respiratory failure (20) Pneumonia (21) Acute and chronic respiratory failure (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
--- NOTE | 2020-06-20 11:20 | Hematology/Onc Progress Note ---
Assessment/Plan Assessment/Plan Assessment and recs # Pancytopenia long standing, r/o underlying infection, does have covid19++++++ --> hgb 11-->10.-->9->11.9-->10.8->7.8->11->>>>7.4-->>.6-->9.3-->9.2->9->9.4--> 8.3--> 9.2--> 8.3 --> plt trend 112-->136-->133-->155--> 189 --> wbc 4-->4->4.1-->7--> 6.5--> 7.6 --> no e/o hemolysis --> no bleeding reported --> smear reviewed --> no gi bleeding --> asa to continue -> neupogen as needed --> transfuse 1 unit 05/30 # Respiratory failure with copd exacerbation likely --> pulm toilet --> breathing rx --> steroids prn basis --> pulm eval ---> ABX per is on zosyn->now off # 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 ( combination of moderate aortic regurgitation and severe mitral regurgitation) --> diuresis as per cards --> lasix last time # Severe ascending aortic dilatation --> per Dr Keke campbell --> meds reviewed # Hypertension # Parkinson disease # Hyperlipidemia # Hypothyroidism # Dementia # Obesity # Schizophrenia --> as per [facility] --> restraints # Dvt ppx heparin sq Appreciate institutional nutrition consultant care Subjective Allergies: Coded Allergies: LITHIUM (Verified Allergy, Unknown, 02/07/19) Subjective Subjective 06/01 nonrebreather, 15L, some mild pain in back, chest, no night sweats 06/02 remains on nonrebreather, labs are noted, no bleeding or night sweats 06/03 labs reviewed, meds noted, nonrebreather, c02 was elevated, to inform pulm 06/04 labs reviewed, meds noted, on NR, no night sweats, meds noted 06/05 is on 15lnc venturi mask, is covid iso, labs noted 06/06 labs reviewed, on venturi mask, on b/l soft wrists, meds noted 06/08 labs reviewed, on nc, no bleeding, with picc line, cbc ordered 06/09 labs reviewed, confused, on 3l nc, no night sweats, meds reviewed 06/10 is off restraints, left picc has been removed, no new changes 06/11 remains confused, is to have picc placed, per public guardian 06/12 wrist restraints, very agitated overnight, noncompliant, labs reviewed 06/13 labs noted, no bleedig, hgb remains low, cbc is pending 06/14: labs reviewed, on restraints, 02 no resp distress 06/15: no acute distress afebrile. hgb 9.2 06/20: picc line is clogged no acute events. Objective Objective Current Medications Medications (Trade) Dose Ordered Sig/Angie Route PRN Reason Start Time Stop Time Status Last Admin Dose Admin Acetaminophen (Tylenol) 650 mg Q6H PRN NG Fever >100.5 06/12/20 08:00 07/12/20 07:59 Acetaminophen (Tylenol) 650 mg Q6H PRN NG Mild Pain (Pain Scale 1-3) 06/12/20 08:00 07/12/20 07:59 Acetaminophen/ Codeine Phosphate (Tylenol #3) 1 tab Q4H PRN ORAL Moderate Pain (Pain Scale 4-6) 06/18/20 15:45 06/25/20 15:44 Cefazolin Sodium 1 gm/Dextrose 55 ml @ 110 mls/hr Q8H IVP 06/18/20 23:00 06/25/20 22:59 06/19/20 23:04 Chlorhexidine Gluconate (Ruba-Hex 2%) 1 applic DAILY@2000 TOPIC 06/12/20 20:00 09/10/20 19:59 06/19/20 21:45 Clonidine HCl (Catapres Tab) 0.1 mg Q4H PRN ORAL sbp>170 05/11/20 17:15 08/09/20 17:14 Docusate Sodium (Colace) 100 mg TWICE A DAY ORAL 06/05/20 09:00 07/05/20 08:59 06/19/20 18:37 Furosemide (Lasix) 40 mg DAILY ORAL 06/09/20 09:00 07/09/20 08:59 06/19/20 09:36 Haloperidol Lactate (Haldol) 5 mg Q6H PRN IM Agitation 05/13/20 20:45 06/27/20 20:44 05/28/20 02:40 Heparin Sodium (Porcine) (Heparin 5000 units/ml) 5,000 units EVERY 12 HOURS SUBQ 05/25/20 21:00 07/09/20 20:59 06/19/20 21:45 Lactulose (Cephulac) 20 gm THREE TIMES A DAY ORAL 06/08/20 18:00 07/08/20 17:59 06/19/20 18:37 Lansoprazole (Prevacid) 30 mg BID ORAL 06/05/20 18:00 07/05/20 17:59 06/19/20 18:37 Levothyroxine Sodium (Synthroid) 50 mcg DAILY@0630 ORAL 06/13/20 06:30 07/13/20 06:29 06/17/20 06:41 Morphine Sulfate (Morphine Sulfate) 2 mg Q1H PRN IVP Severe Pain (Pain Scale 7-10) 06/18/20 15:45 06/25/20 15:44 06/18/20 23:28 Ondansetron HCl (Zofran) 4 mg Q6H PRN IVP Nausea & Vomiting 06/18/20 15:45 07/18/20 15:44 Polyethylene Glycol (Miralax) 17 gm BEDTIME ORAL 05/25/20 21:00 06/24/20 20:59 06/18/20 22:13 Quetiapine Fumarate (SEROqueL) 50 mg Q12HR ORAL 06/15/20 09:00 07/24/20 20:59 06/19/20 09:36 Last 24 Hour Vital Signs Date Time Temp Pulse Resp B/P (MAP) Pulse Ox O2 Delivery O2 Flow Rate FiO2 06/20/20 09:00 Room Air 06/20/20 08:00 97.5 80 18 140/72 (94) 95 06/20/20 08:00 75 06/20/20 04:00 98.1 79 16 99/61 (74) 94 06/20/20 04:00 68 06/20/20 00:00 98.0 66 16 128/88 (101) 95 06/20/20 00:00 70 06/19/20 21:00 Room Air 06/19/20 20:00 97.6 68 16 105/71 (82) 93 06/19/20 20:00 69 06/19/20 19:12 95 Room Air 21 06/19/20 16:00 78 06/19/20 16:00 97.9 79 18 121/48 (72) 97 06/19/20 12:00 85 06/19/20 12:00 97.5 79 20 144/51 (82) 96 06/19/20 11:17 68 20 98 06/19/20 09:00 Room Air 06/19/20 08:00 97.7 78 18 110/55 (73) 97 06/19/20 08:00 79 06/19/20 04:00 97.9 68 19 142/50 (80) 97 06/19/20 04:00 68 06/19/20 00:00 72 06/19/20 00:00 97.9 69 19 147/45 (79) 97 06/18/20 21:00 Room Air 06/18/20 20:00 98.1 74 19 126/59 (81) 98 06/18/20 20:00 78 06/18/20 16:37 71 06/18/20 16:10 97.9 68 21 112/55 100 Nasal Cannula 3 06/18/20 16:00 97.8 66 20 164/47 (86) 98 06/18/20 16:00 66 20 127/45 100 Nasal Cannula 3 06/18/20 15:50 67 21 120/43 100 Nasal Cannula 3 06/18/20 15:40 68 21 121/45 100 Simple Mask 6 06/18/20 15:37 89 16 100 06/18/20 15:35 71 17 131/48 100 Simple Mask 6 06/18/20 15:30 97.6 76 20 121/47 100 Simple Mask 6 06/18/20 12:00 97.6 66 20 121/40 (67) 96 06/18/20 11:35 60 Intake and Output 06/19/20 06/20/20 19:00 07:00 Intake Total 240 ml Balance 240 ml Intake Oral 240 ml # Voids 3 2 Labs Test 06/19/20 05:00 06/20/20 05:58 White Blood Count 6.3 K/UL (4.8-10.8) 7.6 K/UL (4.8-10.8) Red Blood Count 2.51 M/UL (4.20-5.40) 2.49 M/UL (4.20-5.40) Hemoglobin 8.4 G/DL (12.0-16.0) 8.3 G/DL (12.0-16.0) Hematocrit 24.9 % (37.0-47.0) 24.9 % (37.0-47.0) Mean Corpuscular Volume 99 FL (80-99) 100 FL (80-99) Mean Corpuscular Hemoglobin 33.7 PG (27.0-31.0) 33.3 PG (27.0-31.0) Mean Corpuscular Hemoglobin Concent 34.0 G/DL (32.0-36.0) 33.4 G/DL (32.0-36.0) Red Cell Distribution Width 17.1 % (11.6-14.8) 17.0 % (11.6-14.8) Platelet Count 232 K/UL (150-450) 189 K/UL (150-450) Mean Platelet Volume 5.7 FL (6.5-10.1) 6.4 FL (6.5-10.1) Neutrophils (%) (Auto) 66.6 % (45.0-75.0) 65.4 % (45.0-75.0) Lymphocytes (%) (Auto) 22.3 % (20.0-45.0) 25.9 % (20.0-45.0) Monocytes (%) (Auto) 7.5 % (1.0-10.0) 6.2 % (1.0-10.0) Eosinophils (%) (Auto) 2.6 % (0.0-3.0) 2.0 % (0.0-3.0) Basophils (%) (Auto) 1.0 % (0.0-2.0) 0.7 % (0.0-2.0) Sodium Level 137 MMOL/L (136-145) 139 MMOL/L (136-145) Potassium Level 3.7 MMOL/L (3.5-5.1) 3.9 MMOL/L (3.5-5.1) Chloride Level 104 MMOL/L (98-107) 107 MMOL/L (98-107) Carbon Dioxide Level 27 MMOL/L (21-32) 26 MMOL/L (21-32) Anion Gap 6 mmol/L (5-15) 6 mmol/L (5-15) Blood Urea Nitrogen 26 mg/dL (7-18) 23 mg/dL (7-18) Creatinine 1.0 MG/DL (0.55-1.30) 1.0 MG/DL (0.55-1.30) Estimat Glomerular Filtration Rate 53.3 mL/min (>60) 53.3 mL/min (>60) Glucose Level 96 MG/DL (74-106) 85 MG/DL (74-106) Calcium Level 8.2 MG/DL (8.5-10.1) 8.2 MG/DL (8.5-10.1) Total Bilirubin 0.4 MG/DL (0.2-1.0) Aspartate Amino Transf (AST/SGOT) 16 U/L (15-37) Alanine Aminotransferase (ALT/SGPT) 9 U/L (12-78) Alkaline Phosphatase 39 U/L (46-116) Total Protein 6.3 G/DL (6.4-8.2) Albumin 2.8 G/DL (3.4-5.0) Globulin 3.5 g/dL Albumin/Globulin Ratio 0.8 (1.0-2.7) Height (Feet): 5 Height (Inches): 3.00 Weight (Pounds): 183 Objective Subjective Subjective HEENT: Denies: no symptoms, eye pain, blurred vision, tearing, double vision, ear pain, ear discharge, nose pain, nose congestion, throat pain, throat swelling, mouth pain, mouth swelling, other Cardiovascular: Denies: no symptoms, chest pain, edema, irregular heart rate, lightheadedness, palpitations, syncope, other Respiratory: Denies: no symptoms, cough, shortness of breath, SOB with excertion, SOB at rest, sputum, wheezing, other Gastrointestinal/Abdominal: Denies: no symptoms, abdomen distended, abdominal pain, black stools, tarry stools, blood in stool, constipated, diarrhea, difficulty swallowing, nausea, poor appetite, poor fluid intake, rectal bleeding, vomiting, other Genitourinary: Denies: no symptoms, burning, discharge, frequency, flank pain, hematuria, incontinence, pain, urgency, other Neurologic/Psychiatric: Denies: no symptoms, anxiety, depressed, emotional problems, headache, numbness, paresthesia, pre-existing deficit, seizure, tingling, tremors, weakness, other Endocrine: Denies: no symptoms, excessive sweating, flushing, intolerance to cold, intolerance to heat, increased hunger, increased thirst, increased urine, unexplained weight gain, unexplained weight loss, other Hematologic/Lymphatic: Denies: no symptoms, anemia, easy bleeding, easy bruising, adenopathy, other Charline Meléndez NP Jun 20, 2020 11:20
[2020-06-20 12:00] VITALS: BP 136/64
--- NOTE | 2020-06-20 12:23 | Infectious Diseases Prog Note ---
Assessment/Plan Assessment/Plan IMPRESSION: COVID-19 disease, Acute respiratory failure, COPD, Diastolic CHF, Mitral valve regurgitation, Anemia, Parkinson disease, schizoaffective disorder, Dementia, Obstructive sleep apnea, Hypothyroidism. 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 SSS with pause s/p permanent pacemaker RECOMMENDATION: Finished dexamethasone & Remdesivir course Discontinue Cefazolin Subjective ROS Limited/Unobtainable: Yes Constitutional: Denies: fever Neurologic: Reports: confusion, other - on restraint Allergies: Coded Allergies: LITHIUM (Verified Allergy, Unknown, 02/07/19) Objective Last 24 Hour Vital Signs Date Time Temp Pulse Resp B/P (MAP) Pulse Ox O2 Delivery O2 Flow Rate FiO2 06/20/20 09:00 Room Air 06/20/20 08:00 97.5 80 18 140/72 (94) 95 06/20/20 08:00 75 06/20/20 04:00 98.1 79 16 99/61 (74) 94 06/20/20 04:00 68 06/20/20 00:00 98.0 66 16 128/88 (101) 95 06/20/20 00:00 70 06/19/20 21:00 Room Air 06/19/20 20:00 97.6 68 16 105/71 (82) 93 06/19/20 20:00 69 06/19/20 19:12 95 Room Air 21 06/19/20 16:00 78 06/19/20 16:00 97.9 79 18 121/48 (72) 97 Height (Feet): 5 Height (Inches): 3.00 Weight (Pounds): 183 General Appearance: no acute distress HEENT: mucous membranes moist Respiratory/Chest: lungs clear Cardiovascular: normal rate, pacemaker/AICD, other - PICC line Abdomen: soft, non tender Extremities: no edema Neurologic/Psychiatric: alert, responsive, disoriented Laboratory Tests Test 06/20/20 05:58 White Blood Count 7.6 K/UL (4.8-10.8) Red Blood Count 2.49 M/UL (4.20-5.40) L Hemoglobin 8.3 G/DL (12.0-16.0) L Hematocrit 24.9 % (37.0-47.0) L Mean Corpuscular Volume 100 FL (80-99) H Mean Corpuscular Hemoglobin 33.3 PG (27.0-31.0) H Mean Corpuscular Hemoglobin Concent 33.4 G/DL (32.0-36.0) Red Cell Distribution Width 17.0 % (11.6-14.8) H Platelet Count 189 K/UL (150-450) Mean Platelet Volume 6.4 FL (6.5-10.1) L Neutrophils (%) (Auto) 65.4 % (45.0-75.0) Lymphocytes (%) (Auto) 25.9 % (20.0-45.0) Monocytes (%) (Auto) 6.2 % (1.0-10.0) Eosinophils (%) (Auto) 2.0 % (0.0-3.0) Basophils (%) (Auto) 0.7 % (0.0-2.0) Sodium Level 139 MMOL/L (136-145) Potassium Level 3.9 MMOL/L (3.5-5.1) Chloride Level 107 MMOL/L (98-107) Carbon Dioxide Level 26 MMOL/L (21-32) Anion Gap 6 mmol/L (5-15) Blood Urea Nitrogen 23 mg/dL (7-18) H Creatinine 1.0 MG/DL (0.55-1.30) Estimat Glomerular Filtration Rate 53.3 mL/min (>60) Glucose Level 85 MG/DL (74-106) Calcium Level 8.2 MG/DL (8.5-10.1) L Current Medications Medications (Trade) Dose Ordered Sig/Angie Route PRN Reason Start Time Stop Time Status Last Admin Dose Admin Acetaminophen (Tylenol) 650 mg Q6H PRN NG Fever >100.5 06/12/20 08:00 07/12/20 07:59 Acetaminophen (Tylenol) 650 mg Q6H PRN NG Mild Pain (Pain Scale 1-3) 06/12/20 08:00 07/12/20 07:59 Acetaminophen/ Codeine Phosphate (Tylenol #3) 1 tab Q4H PRN ORAL Moderate Pain (Pain Scale 4-6) 06/18/20 15:45 06/25/20 15:44 Cefazolin Sodium 1 gm/Dextrose 55 ml @ 110 mls/hr Q8H IVP 06/18/20 23:00 06/25/20 22:59 06/19/20 23:04 Chlorhexidine Gluconate (Ruba-Hex 2%) 1 applic DAILY@2000 TOPIC 06/12/20 20:00 09/10/20 19:59 06/19/20 21:45 Clonidine HCl (Catapres Tab) 0.1 mg Q4H PRN ORAL sbp>170 05/11/20 17:15 08/09/20 17:14 Docusate Sodium (Colace) 100 mg TWICE A DAY ORAL 06/05/20 09:00 07/05/20 08:59 06/19/20 18:37 Furosemide (Lasix) 40 mg DAILY ORAL 06/09/20 09:00 07/09/20 08:59 06/19/20 09:36 Haloperidol Lactate (Haldol) 5 mg Q6H PRN IM Agitation 05/13/20 20:45 06/27/20 20:44 05/28/20 02:40 Heparin Sodium (Porcine) (Heparin 5000 units/ml) 5,000 units EVERY 12 HOURS SUBQ 05/25/20 21:00 07/09/20 20:59 06/19/20 21:45 Lactulose (Cephulac) 20 gm THREE TIMES A DAY ORAL 06/08/20 18:00 07/08/20 17:59 06/19/20 18:37 Lansoprazole (Prevacid) 30 mg BID ORAL 06/05/20 18:00 07/05/20 17:59 06/19/20 18:37 Levothyroxine Sodium (Synthroid) 50 mcg DAILY@0630 ORAL 06/13/20 06:30 07/13/20 06:29 06/17/20 06:41 Morphine Sulfate (Morphine Sulfate) 2 mg Q1H PRN IVP Severe Pain (Pain Scale 7-10) 06/18/20 15:45 06/25/20 15:44 06/18/20 23:28 Ondansetron HCl (Zofran) 4 mg Q6H PRN IVP Nausea & Vomiting 06/18/20 15:45 07/18/20 15:44 Polyethylene Glycol (Miralax) 17 gm BEDTIME ORAL 05/25/20 21:00 06/24/20 20:59 06/18/20 22:13 Quetiapine Fumarate (SEROqueL) 50 mg Q12HR ORAL 06/15/20 09:00 07/24/20 20:59 06/19/20 09:36 Lei Chan MD Jun 20, 2020 12:22
--- NOTE | 2020-06-20 12:27 | Pulmonology Progress Note ---
Subjective ROS Limited/Unobtainable: Yes Interval Events: s/p pacemaker implant Constitutional: Denies: fever HEENT: Repors: no symptoms Respiratory: Reports: no symptoms Cardiovascular: Reports: no symptoms, other - s/p pacemaker placement Genitourinary: Reports: no symptoms Allergies: Coded Allergies: LITHIUM (Verified Allergy, Unknown, 02/07/19) Objective Last 24 Hour Vital Signs Date Time Temp Pulse Resp B/P (MAP) Pulse Ox O2 Delivery O2 Flow Rate FiO2 06/20/20 09:00 Room Air 06/20/20 08:00 97.5 80 18 140/72 (94) 95 06/20/20 08:00 75 06/20/20 04:00 98.1 79 16 99/61 (74) 94 06/20/20 04:00 68 06/20/20 00:00 98.0 66 16 128/88 (101) 95 06/20/20 00:00 70 06/19/20 21:00 Room Air 06/19/20 20:00 97.6 68 16 105/71 (82) 93 06/19/20 20:00 69 06/19/20 19:12 95 Room Air 06/19/20 16:00 78 06/19/20 16:00 97.9 79 18 121/48 (72) 97 Intake and Output 06/19/20 06/20/20 19:00 07:00 Intake Total 240 ml Balance 240 ml Intake Oral 240 ml # Voids 3 2 Objective 06/20 ramains on RA; NAD 06/19 s/p pacemaker implant yesterday; remains on RA 06/18 no change; stable respiration; due for pacemaker implant today 06/17 no change 06/16 no change respiratory-ortega 06/15 no change 06/14 on RA; stable respiratory-ortega 06/11 no change 06/10 remains on room air; off isolation now 06/09 seen in tele; now saturating at 93-94% on room air 06/06 no change 06/05 now on 14L Ventimask saturating at high 90s 05/31 on Venturi mask saturating well 05/29/2020 now on 2 lpm NC saturating at 97%; in transfusion 05/28/2020 in SDU; currently on Venturi mask 14L FiO2 14L saturating well 05/27/2020 in SDU; s/p failed attempt at switching to NC due to patient noncompliance; currently saturating low-mid 90s when she is actually on Venturi mask 14L 05/26/2020 in SDU; keeps taking off her NRB and desats to 79-80% 05/24/2020 in ICUD; restless, saturating ok with NC 05/19/2020 Pt in ICU; full code General Appearance: no acute distress HEENT: normocephalic Respiratory: no respiratory distress, decreased breath sounds Cardiovascular: normal rate Abdomen: soft, non tender, other - obese Extremities: other - b/l 2+ pitting edema Neurologic: disoriented Laboratory Tests 06/20/20 05:58: White Blood Count 7.6, Red Blood Count 2.49L, Hemoglobin 8.3L, Hematocrit 24.9L, Mean Corpuscular Volume 100H, Mean Corpuscular Hemoglobin 33.3H, Mean Corpuscular Hemoglobin Concent 33.4, Red Cell Distribution Width 17.0H, Platelet Count 189, Mean Platelet Volume 6.4L, Neutrophils (%) (Auto) 65.4, Lymphocytes (%) (Auto) 25.9, Monocytes (%) (Auto) 6.2, Eosinophils (%) (Auto) 2.0, Basophils (%) (Auto) 0.7, Sodium Level 139, Potassium Level 3.9, Chloride Level 107, Carbon Dioxide Level 26, Anion Gap 6, Blood Urea Nitrogen 23H, Creatinine 1.0, Estimat Glomerular Filtration Rate 53.3, Glucose Level 85, Calcium Level 8.2L Current Medications Medications (Trade) Dose Ordered Sig/Angie Route PRN Reason Start Time Stop Time Status Last Admin Dose Admin Acetaminophen (Tylenol) 650 mg Q6H PRN NG Fever >100.5 06/12/20 08:00 07/12/20 07:59 Acetaminophen (Tylenol) 650 mg Q6H PRN NG Mild Pain (Pain Scale 1-3) 06/12/20 08:00 07/12/20 07:59 Acetaminophen/ Codeine Phosphate (Tylenol #3) 1 tab Q4H PRN ORAL Moderate Pain (Pain Scale 4-6) 06/18/20 15:45 06/25/20 15:44 Cefazolin Sodium 1 gm/Dextrose 55 ml @ 110 mls/hr Q8H IVP 06/18/20 23:00 06/25/20 22:59 06/19/20 23:04 Chlorhexidine Gluconate (Ruba-Hex 2%) 1 applic DAILY@2000 TOPIC 06/12/20 20:00 09/10/20 19:59 06/19/20 21:45 Clonidine HCl (Catapres Tab) 0.1 mg Q4H PRN ORAL sbp>170 05/11/20 17:15 08/09/20 17:14 Docusate Sodium (Colace) 100 mg TWICE A DAY ORAL 06/05/20 09:00 07/05/20 08:59 06/19/20 18:37 Furosemide (Lasix) 40 mg DAILY ORAL 06/09/20 09:00 07/09/20 08:59 06/19/20 09:36 Haloperidol Lactate (Haldol) 5 mg Q6H PRN IM Agitation 05/13/20 20:45 06/27/20 20:44 05/28/20 02:40 Heparin Sodium (Porcine) (Heparin 5000 units/ml) 5,000 units EVERY 12 HOURS SUBQ 05/25/20 21:00 07/09/20 20:59 06/19/20 21:45 Lactulose (Cephulac) 20 gm THREE TIMES A DAY ORAL 06/08/20 18:00 07/08/20 17:59 06/19/20 18:37 Lansoprazole (Prevacid) 30 mg BID ORAL 06/05/20 18:00 07/05/20 17:59 06/19/20 18:37 Levothyroxine Sodium (Synthroid) 50 mcg DAILY@0630 ORAL 06/13/20 06:30 07/13/20 06:29 06/17/20 06:41 Morphine Sulfate (Morphine Sulfate) 2 mg Q1H PRN IVP Severe Pain (Pain Scale 7-10) 06/18/20 15:45 06/25/20 15:44 06/18/20 23:28 Ondansetron HCl (Zofran) 4 mg Q6H PRN IVP Nausea & Vomiting 06/18/20 15:45 07/18/20 15:44 Polyethylene Glycol (Miralax) 17 gm BEDTIME ORAL 05/25/20 21:00 06/24/20 20:59 06/18/20 22:13 Quetiapine Fumarate (SEROqueL) 50 mg Q12HR ORAL 06/15/20 09:00 07/24/20 20:59 06/19/20 09:36 Assessment/Plan Assessment/Plan 1. Bilateral COVID-19 multilobar pneumonia. - s/p ETT removal - Afebrile - s/p Azithromycin, Ceftriaxone, dexamethasone, and remdesivir - CXR 05/31 Patchy bilateral airspace consolidations, consistent with multifocal infiltrate, similar in appearance to previous study from 05/30; Stable, small bilateral pleural effusions. - COVID-19 PCR 06/02 inconclusive result - COVID-19 PCR 06/04 positive - now off isolation - provide supplemental oxygen as needed 2. Hx of COPD. 3. Schizophrenia/psychosis - On haloperidol per Dr. Hernandez 4. Hypoxia. -Now on room air; saturating well - X-ray chest on 06/07 shows significantly improved bilateral pulmonary infiltrates - Now on oral Lasix 40 mg - off Diamox - recommend continued diuresis with ongoing BUN/Cr monitoring 5. Anemia; improved - Stool OB neg 6. SSS - s/p pacemaker implant (06/18) - no bleeding, or signs of infection DVT ppx Medically stable for discharge from pulmonary stand point The care for this patient was discussed with my supervising physician Time spent for this case was approximately 31 minutes Trae Avilez Jun 20, 2020 12:27
--- NOTE | 2020-06-20 12:58 | Cardiology Report ---
APPROVED REPORT EKG Measurement Heart [id number] <Conclusion> NSR Non specific ST abn Abnormal ECG
--- NOTE | 2020-06-20 15:04 | Cardiac Electrophysiology PN ---
Assessment/Plan Assessment/Plan 1. Covid PNA and respiratory failure. S/P Remdesevir and Dexamethasone Self extubated on RA. Off Abx per ID. On Lasix [address] Myers Now off isolation 2. SSS with 8 pauses of more than 3 seconds including 9 and 10 second pauses off any QUEZADA or AVN blockers. DW patients public Guardian, Mr. Mohit Hyatt at [phone] who stated the conservator is actually Mr Manpreet Wyatt [phone] Mr Mohit Hyatt also stated that he was covering Mr Wyatt DW Mr. Manpreet Wyatt conservator at [phone] who agreed to proceed with 2 physician consent per hospital policy S /P DDD [facility] PPM implant 06/18/20. Interrogation today showed Nl Fx. Pacer site no hematoma CXR No Ptx 3. Hypotension. Off Dopamine. EF 55% 4. Schizophrenia and psychosis. 5. S/P MRSA & Klebsiella pneumonia DW RN DW dasha Blandon at [phone] and made aware that PPM was done successfully No need for Abx from cardiac perspective. OK to DC Subjective Subjective Self extubated on 05/22/20 off Covid isolation. Had multiple pauses of more than 3 seconds including a 4s and 7s and a 10 second pause at 1 AM on 05/31 Had pauses of 7, 8 and 6 seconds again 06/01/20 On RA in restraints. S/P RUE PICC line DW patients public Guardian, Mr. Mohit Hyatt at [phone] and the conservator Mr. Manpreet Wyatt [phone] S/P DDD [facility] pacer implantation 06/18/20 and was interrogated that showed Nl Fx Objective Last 24 Hour Vital Signs Date Time Temp Pulse Resp B/P (MAP) Pulse Ox O2 Delivery O2 Flow Rate FiO2 06/20/20 12:00 76 06/20/20 12:00 97.6 69 20 136/64 (88) 94 06/20/20 09:00 Room Air 06/20/20 08:00 97.5 80 18 140/72 (94) 95 06/20/20 08:00 75 06/20/20 04:00 98.1 79 16 99/61 (74) 94 06/20/20 04:00 68 06/20/20 00:00 98.0 66 16 128/88 (101) 95 06/20/20 00:00 70 06/19/20 21:00 Room Air 06/19/20 20:00 97.6 68 16 105/71 (82) 93 06/19/20 20:00 69 06/19/20 19:12 95 Room Air 21 06/19/20 16:00 78 06/19/20 16:00 97.9 79 18 121/48 (72) 97 Intake and Output 06/19/20 06/20/20 19:00 07:00 Intake Total 240 ml Balance 240 ml Intake Oral 240 ml # Voids 3 2 Laboratory Tests Test 06/20/20 05:58 White Blood Count 7.6 K/UL (4.8-10.8) Red Blood Count 2.49 M/UL (4.20-5.40) L Hemoglobin 8.3 G/DL (12.0-16.0) L Hematocrit 24.9 % (37.0-47.0) L Mean Corpuscular Volume 100 FL (80-99) H Mean Corpuscular Hemoglobin 33.3 PG (27.0-31.0) H Mean Corpuscular Hemoglobin Concent 33.4 G/DL (32.0-36.0) Red Cell Distribution Width 17.0 % (11.6-14.8) H Platelet Count 189 K/UL (150-450) Mean Platelet Volume 6.4 FL (6.5-10.1) L Neutrophils (%) (Auto) 65.4 % (45.0-75.0) Lymphocytes (%) (Auto) 25.9 % (20.0-45.0) Monocytes (%) (Auto) 6.2 % (1.0-10.0) Eosinophils (%) (Auto) 2.0 % (0.0-3.0) Basophils (%) (Auto) 0.7 % (0.0-2.0) Sodium Level 139 MMOL/L (136-145) Potassium Level 3.9 MMOL/L (3.5-5.1) Chloride Level 107 MMOL/L (98-107) Carbon Dioxide Level 26 MMOL/L (21-32) Anion Gap 6 mmol/L (5-15) Blood Urea Nitrogen 23 mg/dL (7-18) H Creatinine 1.0 MG/DL (0.55-1.30) Estimat Glomerular Filtration Rate 53.3 mL/min (>60) Glucose Level 85 MG/DL (74-106) Calcium Level 8.2 MG/DL (8.5-10.1) L Objective HEAD AND NECK: Positive JVD. LUNGS: Decreased breath sounds. CARDIOVASCULAR: Regular S1 and S2 with no gallop.Pacer left subclavian with no hematoma ABDOMEN: Obese. EXTREMITIES: Bilateral 2+ pitting edema. Cameron Davies MD Jun 20, 2020 15:04
[2020-06-20 16:00] VITALS: BP 139/83
[2020-06-20 20:00] VITALS: BP 113/52
--- NOTE | 2020-06-20 20:07 | General Progress Note ---
Subjective ROS Limited/Unobtainable: Yes Allergies: Coded Allergies: LITHIUM (Verified Allergy, Unknown, 02/07/19) Objective Last 24 Hour Vital Signs Date Time Temp Pulse Resp B/P (MAP) Pulse Ox O2 Delivery O2 Flow Rate FiO2 06/20/20 19:41 94 Room Air 21 06/20/20 16:00 76 06/20/20 16:00 97.2 78 18 139/83 (101) 94 06/20/20 12:00 76 06/20/20 12:00 97.6 69 20 136/64 (88) 94 06/20/20 09:00 Room Air 06/20/20 08:00 97.5 80 18 140/72 (94) 95 06/20/20 08:00 75 06/20/20 04:00 98.1 79 16 99/61 (74) 94 06/20/20 04:00 68 06/20/20 00:00 98.0 66 16 128/88 (101) 95 06/20/20 00:00 70 06/19/20 21:00 Room Air Intake and Output 06/19/20 06/20/20 19:00 07:00 Intake Total 240 ml Balance 240 ml Intake Oral 240 ml # Voids 3 2 Laboratory Tests 06/20/20 05:58: White Blood Count 7.6, Red Blood Count 2.49L, Hemoglobin 8.3L, Hematocrit 24.9L, Mean Corpuscular Volume 100H, Mean Corpuscular Hemoglobin 33.3H, Mean Corpuscular Hemoglobin Concent 33.4, Red Cell Distribution Width 17.0H, Platelet Count 189, Mean Platelet Volume 6.4L, Neutrophils (%) (Auto) 65.4, Lymphocytes (%) (Auto) 25.9, Monocytes (%) (Auto) 6.2, Eosinophils (%) (Auto) 2.0, Basophils (%) (Auto) 0.7, Sodium Level 139, Potassium Level 3.9, Chloride Level 107, Carbon Dioxide Level 26, Anion Gap 6, Blood Urea Nitrogen 23H, Creatinine 1.0, Estimat Glomerular Filtration Rate 53.3, Glucose Level 85, Calcium Level 8.2L Height (Feet): 5 Height (Inches): 3.00 Weight (Pounds): 183 Assessment/Plan Problem List: (1) Anemia ICD Codes: D64.9 - Anemia, unspecified SNOMED: 800358136 (2) Hypercapnic respiratory failure ICD Codes: J96.92 - Respiratory failure, unspecified with hypercapnia SNOMED: 953301879 (3) COVID-19 ICD Codes: U07.1 - COVID-19 SNOMED: 284620034 (4) COPD (chronic obstructive pulmonary disease) ICD Codes: J44.9 - Chronic obstructive pulmonary disease, unspecified SNOMED: 64564558 (5) Psychosis ICD Codes: F29 - Unspecified psychosis not due to a substance or known physiological condition SNOMED: 45065090 (6) Hypoxia ICD Codes: R09.02 - Hypoxemia SNOMED: 537159081 (7) Renal failure (ARF), acute on chronic ICD Codes: N17.9 - Acute kidney failure, unspecified; N18.9 - Chronic kidney disease, unspecified SNOMED: 210189513 (8) CHF exacerbation ICD Codes: I50.9 - Heart failure, unspecified SNOMED: 380619057, 96205087358793 Status: progressing, unchanged, deteriorating Assessment/Plan: s/p pacemaker copd pna cleared by Dani Beatty MD Jun 20, 2020 20:07
[2020-06-20] MEDS: Dyna-Hex 2% Top Sol 2oz TOPIC SCH (21:04)
--- NOTE | 2020-06-20 21:04 | General Progress Note ---
Subjective Allergies: Coded Allergies: LITHIUM (Verified Allergy, Unknown, 02/07/19) Subjective above noted no BM, But patient has refused laxatives d/w RN Objective Last 24 Hour Vital Signs Date Time Temp Pulse Resp B/P (MAP) Pulse Ox O2 Delivery O2 Flow Rate FiO2 06/20/20 19:41 94 Room Air 21 06/20/20 16:00 76 06/20/20 16:00 97.2 78 18 139/83 (101) 94 06/20/20 12:00 76 06/20/20 12:00 97.6 69 20 136/64 (88) 94 06/20/20 09:00 Room Air 06/20/20 08:00 97.5 80 18 140/72 (94) 95 06/20/20 08:00 75 06/20/20 04:00 98.1 79 16 99/61 (74) 94 06/20/20 04:00 68 06/20/20 00:00 98.0 66 16 128/88 (101) 95 06/20/20 00:00 70 Intake and Output 06/19/20 06/20/20 19:00 07:00 Intake Total 240 ml Balance 240 ml Intake Oral 240 ml # Voids 3 2 Laboratory Tests 06/20/20 05:58: White Blood Count 7.6, Red Blood Count 2.49L, Hemoglobin 8.3L, Hematocrit 24.9L, Mean Corpuscular Volume 100H, Mean Corpuscular Hemoglobin 33.3H, Mean Corpuscular Hemoglobin Concent 33.4, Red Cell Distribution Width 17.0H, Platelet Count 189, Mean Platelet Volume 6.4L, Neutrophils (%) (Auto) 65.4, Lymphocytes (%) (Auto) 25.9, Monocytes (%) (Auto) 6.2, Eosinophils (%) (Auto) 2.0, Basophils (%) (Auto) 0.7, Sodium Level 139, Potassium Level 3.9, Chloride Level 107, Carbon Dioxide Level 26, Anion Gap 6, Blood Urea Nitrogen 23H, Creatinine 1.0, Estimat Glomerular Filtration Rate 53.3, Glucose Level 85, Calcium Level 8.2L Height (Feet): 5 Height (Inches): 3.00 Weight (Pounds): 183 Objective WDWN WW NCAT CTA RR abd soft no edema Assessment/Plan Status: progressing, unchanged, deteriorating Assessment/Plan: Assessment/Plan (1) Hypertension (2) Schizophrenia (3) Hyperlipidemia (4) Parkinson disease (5) Anemia (6) Obese (7) COVID (+) (8) Hypoxia (9) arrhythmia, s/p pacer (10) constipation Recommendations PPI BID Follow H&H Transfuse to keep Hg>7.0 po as tolerated GI procedures at a later date, if needed More laxatives I will return Mon to see pt Aria Chicas MD Jun 20, 2020 21:04
[2020-06-20] MEDS: Miralax 17gm pkt ORAL SCH (21:05)
[2020-06-21] VITALS: BP 124/75
[2020-06-21 04:00] VITALS: BP 91/70
[2020-06-21 08:00] VITALS: BP 112/40
[2020-06-21 08:37] LABS: BASOPHILS % (AUTO) 0.9 % (0.0-2.0); EOSINOPHILS % (AUTO) 1.8 % (0.0-3.0); HEMATOCRIT 25.8 % (37.0-47.0); HEMOGLOBIN 8.6 G/DL (12.0-16.0); LYMPHOCYTES % (AUTO) 30.9 % (20.0-45.0); MEAN CORPUSCULAR VOLUME 99 FL (80-99); MONOCYTES % (AUTO) 5.4 % (1.0-10.0); PLATELET COUNT 206 K/UL (150-450); RED CELL DISTRIBUTION WIDTH 17.3 % (11.6-14.8); WHITE BLOOD COUNT 5.4 K/UL (4.8-10.8)
[2020-06-21 08:51] LABS: ANION GAP 7 mmol/L (5-15); BLOOD UREA NITROGEN 20 mg/dL (7-18); CALCIUM 8.7 MG/DL (8.5-10.1); CARBON DIOXIDE 25 MMOL/L (21-32); CHLORIDE 108 MMOL/L (98-107); CREATININE 0.8 MG/DL (0.55-1.30); POTASSIUM 4.3 MMOL/L (3.5-5.1); SODIUM 140 MMOL/L (136-145)
[2020-06-21] MEDS: Lactulose 20gm/30ml UDC ORAL SCH ×3 (09:27→10:30)
[2020-06-21] MEDS: Docusate 100mg/10ml Liq ORAL SCH (09:27)
[2020-06-21] MEDS: Furosemide 40mg tab ORAL SCH (09:28)
[2020-06-21] MEDS: Heparin 5000 units/ml inj SUBQ SCH (09:30)
--- NOTE | 2020-06-21 10:31 | Pulmonology Progress Note ---
Subjective ROS Limited/Unobtainable: Yes Interval Events: s/p pacemaker implant Constitutional: Denies: fever HEENT: Repors: no symptoms Respiratory: Reports: no symptoms Cardiovascular: Reports: no symptoms, other - s/p pacemaker placement Genitourinary: Reports: no symptoms Allergies: Coded Allergies: LITHIUM (Verified Allergy, Unknown, 02/07/19) Objective Last 24 Hour Vital Signs Date Time Temp Pulse Resp B/P (MAP) Pulse Ox O2 Delivery O2 Flow Rate FiO2 06/21/20 04:00 72 06/21/20 04:00 98.0 76 20 91/70 (77) 93 06/21/20 00:00 98.0 85 16 124/75 (91) 93 06/21/20 00:00 80 06/20/20 21:00 Room Air 06/20/20 20:00 94 06/20/20 20:00 98.2 87 20 113/52 (72) 93 06/20/20 19:41 94 Room Air 21 06/20/20 16:00 76 06/20/20 16:00 97.2 78 18 139/83 (101) 94 06/20/20 12:00 76 06/20/20 12:00 97.6 69 20 136/64 (88) 94 Intake and Output 06/20/20 06/21/20 19:00 07:00 Intake Total 480 ml Balance 480 ml Intake Oral 480 ml # Voids 4 General Appearance: no acute distress HEENT: normocephalic Respiratory: no respiratory distress, decreased breath sounds Cardiovascular: normal rate Abdomen: soft, non tender, other - obese Extremities: other - b/l 2+ pitting edema Neurologic: disoriented Laboratory Tests 06/21/20 06:40: White Blood Count 5.4, Red Blood Count 2.60L, Hemoglobin 8.6L, Hematocrit 25.8L, Mean Corpuscular Volume 99, Mean Corpuscular Hemoglobin 33.1H, Mean Corpuscular Hemoglobin Concent 33.4, Red Cell Distribution Width 17.3H, Platelet Count 206, Mean Platelet Volume 6.6, Neutrophils (%) (Auto) 61.0, Lymphocytes (%) (Auto) 30.9, Monocytes (%) (Auto) 5.4, Eosinophils (%) (Auto) 1.8, Basophils (%) (Auto) 0.9, Sodium Level 140, Potassium Level 4.3, Chloride Level 108H, Carbon Dioxide Level 25, Anion Gap 7, Blood Urea Nitrogen 20H, Creatinine 0.8, Estimat Glomerular Filtration Rate > 60, Glucose Level 75, Calcium Level 8.7 Current Medications Medications (Trade) Dose Ordered Sig/Angie Route PRN Reason Start Time Stop Time Status Last Admin Dose Admin Acetaminophen (Tylenol) 650 mg Q6H PRN NG Fever >100.5 06/12/20 08:00 07/12/20 07:59 Acetaminophen (Tylenol) 650 mg Q6H PRN NG Mild Pain (Pain Scale 1-3) 06/12/20 08:00 07/12/20 07:59 Acetaminophen/ Codeine Phosphate (Tylenol #3) 1 tab Q4H PRN ORAL Moderate Pain (Pain Scale 4-6) 06/18/20 15:45 06/25/20 15:44 Chlorhexidine Gluconate (Ruba-Hex 2%) 1 applic DAILY@2000 TOPIC 06/12/20 20:00 09/10/20 19:59 06/20/20 21:04 Clonidine HCl (Catapres Tab) 0.1 mg Q4H PRN ORAL sbp>170 05/11/20 17:15 08/09/20 17:14 Docusate Sodium (Colace) 100 mg TWICE A DAY ORAL 06/05/20 09:00 07/05/20 08:59 06/21/20 09:27 Furosemide (Lasix) 40 mg DAILY ORAL 06/09/20 09:00 07/09/20 08:59 06/21/20 09:28 Haloperidol Lactate (Haldol) 5 mg Q6H PRN IM Agitation 05/13/20 20:45 06/27/20 20:44 05/28/20 02:40 Heparin Sodium (Porcine) (Heparin 5000 units/ml) 5,000 units EVERY 12 HOURS SUBQ 05/25/20 21:00 07/09/20 20:59 06/21/20 09:30 Lactulose (Cephulac) 20 gm THREE TIMES A DAY ORAL 06/08/20 18:00 07/08/20 17:59 06/19/20 18:37 Lansoprazole (Prevacid) 30 mg BID ORAL 06/05/20 18:00 07/05/20 17:59 06/21/20 09:28 Levothyroxine Sodium (Synthroid) 50 mcg DAILY@0630 ORAL 06/13/20 06:30 07/13/20 06:29 06/17/20 06:41 Morphine Sulfate (Morphine Sulfate) 2 mg Q1H PRN IVP Severe Pain (Pain Scale 7-10) 06/18/20 15:45 06/25/20 15:44 06/18/20 23:28 Ondansetron HCl (Zofran) 4 mg Q6H PRN IVP Nausea & Vomiting 06/18/20 15:45 07/18/20 15:44 Polyethylene Glycol (Miralax) 17 gm BEDTIME ORAL 05/25/20 21:00 06/24/20 20:59 06/20/20 21:05 Quetiapine Fumarate (SEROqueL) 50 mg Q12HR ORAL 06/15/20 09:00 07/24/20 20:59 06/21/20 09:28 Assessment/Plan Assessment/Plan ssessment/Plan 1. Bilateral COVID-19 multilobar pneumonia. - s/p ETT removal - Afebrile - s/p Azithromycin, Ceftriaxone, dexamethasone, and remdesivir - CXR 05/31 Patchy bilateral airspace consolidations, consistent with multifocal infiltrate, similar in appearance to previous study from 05/30; Stable, small bilateral pleural effusions. - COVID-19 PCR 06/02 inconclusive result - COVID-19 PCR 06/04 positive - now off isolation - provide supplemental oxygen as needed 2. Hx of COPD. 3. Schizophrenia/psychosis - On haloperidol per Dr. Hernandez 4. Hypoxia. -Now on room air; saturating well - X-ray chest on 06/07 shows significantly improved bilateral pulmonary infiltrates - Now on oral Lasix 40 mg - off Diamox - recommend continued diuresis with ongoing BUN/Cr monitoring 5. Anemia; improved - Stool OB neg 6. SSS - s/p pacemaker implant (06/18) - no bleeding, or signs of infection 7. As per nursing patient has discharge order for today Alok Downey NP Jun 21, 2020 10:31
--- NOTE | 2020-06-21 11:59 | Surgery Progress Note ---
Surgery Progress Note Subjective Symptoms: improved, tolerating diet, passing flatus Objective Last 24 Hour Vital Signs Date Time Temp Pulse Resp B/P (MAP) Pulse Ox O2 Delivery O2 Flow Rate FiO2 06/21/20 09:00 Room Air 06/21/20 08:00 98.1 73 20 112/40 (64) 97 06/21/20 04:00 72 06/21/20 04:00 98.0 76 20 91/70 (77) 93 06/21/20 00:00 98.0 85 16 124/75 (91) 93 06/21/20 00:00 80 06/20/20 21:00 Room Air 06/20/20 20:00 94 06/20/20 20:00 98.2 87 20 113/52 (72) 93 06/20/20 19:41 94 Room Air 21 06/20/20 16:00 76 06/20/20 16:00 97.2 78 18 139/83 (101) 94 06/20/20 12:00 76 06/20/20 12:00 97.6 69 20 136/64 (88) 94 I&O Intake and Output 06/20/20 06/21/20 19:00 07:00 Intake Total 480 ml Balance 480 ml Intake Oral 480 ml # Voids 4 Dressing: saturated Cardiovascular: RSR Respiratory: clear Abdomen: soft, non-tender, present bowel sounds Extremities: no tenderness, no cyanosis Laboratory Tests Test 06/21/20 06:40 White Blood Count 5.4 K/UL (4.8-10.8) Red Blood Count 2.60 M/UL (4.20-5.40) L Hemoglobin 8.6 G/DL (12.0-16.0) L Hematocrit 25.8 % (37.0-47.0) L Mean Corpuscular Volume 99 FL (80-99) Mean Corpuscular Hemoglobin 33.1 PG (27.0-31.0) H Mean Corpuscular Hemoglobin Concent 33.4 G/DL (32.0-36.0) Red Cell Distribution Width 17.3 % (11.6-14.8) H Platelet Count 206 K/UL (150-450) Mean Platelet Volume 6.6 FL (6.5-10.1) Neutrophils (%) (Auto) 61.0 % (45.0-75.0) Lymphocytes (%) (Auto) 30.9 % (20.0-45.0) Monocytes (%) (Auto) 5.4 % (1.0-10.0) Eosinophils (%) (Auto) 1.8 % (0.0-3.0) Basophils (%) (Auto) 0.9 % (0.0-2.0) Sodium Level 140 MMOL/L (136-145) Potassium Level 4.3 MMOL/L (3.5-5.1) Chloride Level 108 MMOL/L (98-107) H Carbon Dioxide Level 25 MMOL/L (21-32) Anion Gap 7 mmol/L (5-15) Blood Urea Nitrogen 20 mg/dL (7-18) H Creatinine 0.8 MG/DL (0.55-1.30) Estimat Glomerular Filtration Rate > 60 mL/min (>60) Glucose Level 75 MG/DL (74-106) Calcium Level 8.7 MG/DL (8.5-10.1) Plan Problems: (1) Anemia (2) Hypercapnic respiratory failure Assessment & Plan: respiratory insufficiency requiring prolonged ventilatory support unable to wean vent safely after multiple attempts discussed with pcp. discussed with pulm discussed with patient guardian. patient unable to consent. no nok or poa. given critical care and condition not recommended to await court decision which during pandemic can take long time. medically necessary to proceed with trach in patients best interest. self extubated will monitor DAILY ESTIMATED NEEDS: Needs based on Critical care, 70kg abw 22-28 kcals/kg 5037-2380 total kcals 1.2-2 g protein/kg 84-140 g total protein 20-25 mL/kg 4241-3991 total fluid mLs NUTRITION DIAGNOSIS: Swallowing difficulty r/t respiratory status as evidenced by pt orally intubated, was pending trach placement, s/p self-extubation on 05/22, now on texture modified diet. CURRENT DIET:REGULAR, puree w/ NTL PO DIET RECOMMENDATIONS: Maintain liberalized REGULAR diet/ texture per PLASTIC FINISHER ADDITIONAL RECOMMENDATIONS: 1) Calibrated bed scale wts 2) Rec bowel regimen -> now added 3) Monitor lytes, replete as needed 4) PLASTIC FINISHER f/up regarding texture clarification 5) Monitor PO intake and tolerance Ensure Enlive TID w/ meals w/ 3rd Ensure as pm snack to prevent am hypoglycemia (3) COVID-19 Assessment & Plan: ++ improving repeat (4) COPD (chronic obstructive pulmonary disease) (5) Psychosis (6) Renal failure (ARF), acute on chronic (7) CHF exacerbation (8) Hypoxia (9) Hypocalcemia (10) Bradycardia (11) Dyspnea (12) Dyspnea (13) Respiratory distress (14) Hyperlipidemia (15) Hypothyroidism (16) Hypothyroidism (17) Obese (18) Psychosis (19) Respiratory failure (20) Pneumonia (21) Acute and chronic respiratory failure (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
[2020-06-21 12:00] VITALS: BP 120/54
--- NOTE | 2020-06-21 12:52 | Nephrology Progress Note ---
Assessment/Plan Problem List: (1) Renal failure (ARF), acute on chronic (2) Hypercapnic respiratory failure (3) CHF exacerbation (4) Anemia Assessment Azotemia/renal failure Acute respiratory failure most likely secondary to CHF, on mechanical ventilation History of COPD Hypertension Hyperlipemia Schizophrenia/psychosis Plan June 21: Labs reviewed. Renal parameters are stable. June 20: Labs reviewed. Renal parameters stable. Continue per consultants. June 19: Labs reviewed. Renal parameters stable. Continue per consultants. June 18: No labs drawn today. Clinically stable. Full code. Continue per consultants. June 17: Labs reviewed. Renal parameters stable. Continue per consultants. June 16: No CHEM panel drawn today. Will check it tomorrow. Continue per consultants. Patient full code. June 15: Labs reviewed. Low potassium addressed. Renal parameters stable. Continue per consultants. June 14: Labs reviewed. Low potassium replaced. Serum creatinine normalized. Continue per consultants. June 13: No labs drawn today. Patient clinically stable. Continue to monitor renal parameters. June 12: Lab reviewed. Renal parameters are stable. Continue per consultants. June 11: Labs reviewed. Low potassium noted and addressed. Continue per consultants. Continue to monitor renal parameters. June 10: No CHEM panel drawn today. Check lab tomorrow. Continue per consultants. On room air oxygen June 09: Labs reviewed. Renal parameters stable. Continue per current treatment plan. June 08: Labs reviewed. Low potassium addressed. Continue per consultants. June 07: Stable renal parameters. Continue per consultants. Overall stable. June 06: Status quo. Remains on Venturi mask. Labs reviewed. Renal parameters stable. Continue per consultants. June 05: Lethargic. On Venturi mask. Labs reviewed. Returning bicarb. Continue to monitor ABG and electrolytes. Low potassium addressed. June 04: Remains on Venturi mask. No can panel done today. ABG results reviewed. Continue per pulmonary. June 03: Poor respiratory status. ABG noted. Patient hypoxic. Renal parameters somewhat stable. Continue per pulmonary. June 02: Labs reviewed. Low phosphorus replaced. Patient has periodic severe bradycardia. Continue per cardiology. June 01: Labs reviewed. Low magnesium replaced. Renal parameters stable. Hemoglobin level reasonable. Continue per consultants. May 31: Labs reviewed. Abnormal electrolytes at rest. Hemoglobin higher. Discussed with DARREL Cooper. Continue per consultants. May 30: Lab reviewed. Potassium and phosphorus replaced. Hemoglobin higher after transfusion. Continue per consultants. May 29: Lab reviewed. Patient anemic. Electrolyte abnormalities reviewed and addressed. Continue per consultants. Remains stable from renal standpoint of view. May 28: Patient was not transfused despite of my order since yesterday. Will defer transfusion to PMD/ticket broker. Patient remains stable from renal standpoint of view. Continue per consultants. Discussed with Marlene nursing charge in [place]. May 27: Remains on Venturi mask. Labs reviewed. Abnormal electrolytes addressed. Hemoglobin low. Will transfuse 1 unit of packed RBCs today May 26: On Venturi mask. Labs reviewed. Abnormal electrolytes addressed. Continue per consultants and pulmonary support. May 25: On Venturi mask. Lethargic. No labs drawn today. Will monitor renal parameters. Per orders. May 24: Remains extubated. Will start on diet with high alert for possible aspiration. Continue to monitor renal parameters. May 23: Continues to be extubated. On nonrebreathing mask. Labs reviewed. Renal parameters stable. Discussed with RN. Continue per current management. May 22: Now extubated on nonrebreathing mask. Labs reviewed. Renal parameters stable. Abnormal electrolytes addressed. Discussed with RN. May 21: Remains intubated. Labs reviewed. Abnormal electrolytes addressed. Discussed with RN. May 20: Remains intubated. Abnormal electrolyte noted on today's lab results and addressed. Continue per consultants. May 19: Patient remains intubated. Labs reviewed. Abnormal electrolytes addressed. Continue per current management. May 18: Patient seen in ICU. Remains intubated. Weaning is being tried. Discussed with RN. Labs reviewed. Abnormal electrolyte addressed. Continue per consultants. May 17: Labs reviewed. Remains intubated. Stable from renal standpoint of view. Continue weaning. Discussed with RN. May 16: Labs reviewed. Remains intubated. Remains full code. Stable from renal standpoint of view. Abnormal electrolytes addressed. May 15: Labs reviewed. Renal parameters stable. Discussed with RN. Patient remains intubated on ventilator and full code. Continue per c onsultants. May 14: Labs reviewed. Discussed with RN. Abnormal electrolyte addressed. Continue per current management. Patient seen in ICU. Discussed with RN. Today's labs pending. Patient remains on 6 mics of dopamine. Pulmonary support Monitor intake and output Monitor electrolytes Continue per consultants Per orders Subjective ROS Limited/Unobtainable: No Constitutional: Reports: malaise, weakness Objective Objective Last 24 Hour Vital Signs Date Time Temp Pulse Resp B/P (MAP) Pulse Ox O2 Delivery O2 Flow Rate FiO2 06/21/20 09:00 Room Air 06/21/20 08:15 95 Room Air 21 06/21/20 08:00 98.1 73 20 112/40 (64) 97 06/21/20 04:00 72 06/21/20 04:00 98.0 76 20 91/70 (77) 93 06/21/20 00:00 98.0 85 16 124/75 (91) 93 06/21/20 00:00 80 06/20/20 21:00 Room Air 06/20/20 20:00 94 06/20/20 20:00 98.2 87 20 113/52 (72) 93 06/20/20 19:41 94 Room Air 21 06/20/20 16:00 76 06/20/20 16:00 97.2 78 18 139/83 (101) 94 Intake and Output 06/20/20 06/21/20 19:00 07:00 Intake Total 480 ml Balance 480 ml Intake Oral 480 ml # Voids 4 Laboratory Tests 06/21/20 06:40: White Blood Count 5.4, Red Blood Count 2.60L, Hemoglobin 8.6L, Hematocrit 25.8L, Mean Corpuscular Volume 99, Mean Corpuscular Hemoglobin 33.1H, Mean Corpuscular Hemoglobin Concent 33.4, Red Cell Distribution Width 17.3H, Platelet Count 206, Mean Platelet Volume 6.6, Neutrophils (%) (Auto) 61.0, Lymphocytes (%) (Auto) 30.9, Monocytes (%) (Auto) 5.4, Eosinophils (%) (Auto) 1.8, Basophils (%) (Auto) 0.9, Sodium Level 140, Potassium Level 4.3, Chloride Level 108H, Carbon Dioxide Level 25, Anion Gap 7, Blood Urea Nitrogen 20H, Creatinine 0.8, Estimat Glomerular Filtration Rate > 60, Glucose Level 75, Calcium Level 8.7 Height (Feet): 5 Height (Inches): 3.00 Weight (Pounds): 183 General Appearance: no apparent distress Cardiovascular: normal rate Respiratory/Chest: decreased breath sounds Abdomen: soft FouladianBryan MD Jun 21, 2020 12:52
--- NOTE | 2020-06-21 22:08 | Cardiac Electrophysiology PN ---
Assessment/Plan Assessment/Plan 1. Covid PNA and respiratory failure. S/P Remdesevir and Dexamethasone Self extubated on RA. Off Abx per ID. On Lasix [address] Myers Now off isolation 2. SSS with 8 pauses of more than 3 seconds including 9 and 10 second pauses off any QUEZADA or AVN blockers. DW patients public Guardian, Mr. Mohit Hyatt at [phone] who stated the conservator is actually Mr Manpreet Wyatt [phone] Mr Mohit Hyatt also stated that he was covering Mr Wyatt DW Mr. Manpreet Wyatt conservator at [phone] who agreed to proceed with 2 physician consent per hospital policy S /P DDD [facility] PPM implant 06/18/20. Interrogation today showed Nl Fx. Pacer site no hematoma CXR No Ptx 3. Hypotension. Off Dopamine. EF 55% 4. Schizophrenia and psychosis. 5. S/P MRSA & Klebsiella pneumonia DW RN DW dasha Blandon at [phone] and made aware that PPM was done successfully FU with me in 1-2 weeks for wound check Subjective Subjective Self extubated on 05/22/20 off Covid isolation. Had multiple pauses of more than 3 seconds including a 4s and 7s and a 10 second pause at 1 AM on 05/31 Had pauses of 7, 8 and 6 seconds again 06/01/20 On RA in restraints. S/P RUE PICC line DW patients public Guardian, Mr. Mohit Hyatt at [phone] and the conservator Mr. Manpreet Wyatt S/P DDD [facility] pacer implantation 06/18/20 and was interrogated that showed Nl Fx DC to SNIF in progress Objective Last 24 Hour Vital Signs Date Time Temp Pulse Resp B/P (MAP) Pulse Ox O2 Delivery O2 Flow Rate FiO2 06/21/20 14:40 80 06/21/20 12:00 98.4 79 20 120/54 (76) 94 06/21/20 09:00 Room Air 06/21/20 08:15 95 Room Air 21 06/21/20 08:00 98.1 73 20 112/40 (64) 97 06/21/20 08:00 73 06/21/20 04:00 72 06/21/20 04:00 98.0 76 20 91/70 (77) 93 06/21/20 00:00 98.0 85 16 124/75 (91) 93 06/21/20 00:00 80 Intake and Output 06/20/20 06/21/20 19:00 07:00 Intake Total 480 ml Balance 480 ml Intake Oral 480 ml # Voids 4 Laboratory Tests Test 06/21/20 06:40 White Blood Count 5.4 K/UL (4.8-10.8) Red Blood Count 2.60 M/UL (4.20-5.40) L Hemoglobin 8.6 G/DL (12.0-16.0) L Hematocrit 25.8 % (37.0-47.0) L Mean Corpuscular Volume 99 FL (80-99) Mean Corpuscular Hemoglobin 33.1 PG (27.0-31.0) H Mean Corpuscular Hemoglobin Concent 33.4 G/DL (32.0-36.0) Red Cell Distribution Width 17.3 % (11.6-14.8) H Platelet Count 206 K/UL (150-450) Mean Platelet Volume 6.6 FL (6.5-10.1) Neutrophils (%) (Auto) 61.0 % (45.0-75.0) Lymphocytes (%) (Auto) 30.9 % (20.0-45.0) Monocytes (%) (Auto) 5.4 % (1.0-10.0) Eosinophils (%) (Auto) 1.8 % (0.0-3.0) Basophils (%) (Auto) 0.9 % (0.0-2.0) Sodium Level 140 MMOL/L (136-145) Potassium Level 4.3 MMOL/L (3.5-5.1) Chloride Level 108 MMOL/L (98-107) H Carbon Dioxide Level 25 MMOL/L (21-32) Anion Gap 7 mmol/L (5-15) Blood Urea Nitrogen 20 mg/dL (7-18) H Creatinine 0.8 MG/DL (0.55-1.30) Estimat Glomerular Filtration Rate > 60 mL/min (>60) Glucose Level 75 MG/DL (74-106) Calcium Level 8.7 MG/DL (8.5-10.1) Objective HEAD AND NECK: Positive JVD. LUNGS: Decreased breath sounds. CARDIOVASCULAR: Regular S1 and S2 with no gallop.Pacer left subclavian with no hematoma ABDOMEN: Obese. EXTREMITIES: Bilateral 2+ pitting edema. Cameron Davies MD Jun 21, 2020 22:08
== END 2020-06-21 15:45 | DRG 981 ==
LOC: EDBD 16:02 → EMR 16:31 → ICU 16:42 → MERGE 16:42 → EDBEDREQ 17:06 → EDBEDREQSVC 17:06 → EDBEDREQ 18:07 → 2W 05-25 02:40 → 2E 06-04 14:45
DX: U07.1 COVID-19 (principal); A41.9 Sepsis, unspecified organism; J12.82 Pneumonia due to coronavirus disease 2019; J96.01 Acute respiratory failure with hypoxia; J96.02 Acute respiratory failure with hypercapnia; I50.33 Acute on chronic diastolic (congestive) heart failure; G92 Toxic encephalopathy; J15.0 Pneumonia due to Klebsiella pneumoniae; J15.212 Pneumonia due to Methicillin resistant Staphylococcus aureus; I13.0 Hypertensive heart and chronic kidney disease with heart failure and stage 1 through stage 4 chronic kidney disease, or unspecified chronic kidney disease; J44.0 Chronic obstructive pulmonary disease with (acute) lower respiratory infection; J44.1 Chronic obstructive pulmonary disease with (acute) exacerbation; F20.0 Paranoid schizophrenia; N17.9 Acute kidney failure, unspecified; D61.818 Other pancytopenia; I11.0 Hypertensive heart disease with heart failure; N18.9 Chronic kidney disease, unspecified; E78.5 Hyperlipidemia, unspecified; D64.9 Anemia, unspecified; Z91.19 Patient's noncompliance with other medical treatment and regimen; I35.1 Nonrheumatic aortic (valve) insufficiency; I34.0 Nonrheumatic mitral (valve) insufficiency; G20 Parkinson's disease; F02.80 Dementia in other diseases classified elsewhere, unspecified severity, without behavioral disturbance, psychotic disturbance, mood disturbance, and anxiety; G47.33 Obstructive sleep apnea (adult) (pediatric); E03.9 Hypothyroidism, unspecified; R13.10 Dysphagia, unspecified; I49.5 Sick sinus syndrome; Z78.1 Physical restraint status
CPT/HCPCS: 31500; 36415; 36569; 36573; 71045; 74018; 76000; 76937; 80048; 80053; 80076; 80162; 80202; 81003; 82248; 82270; 82607; 82728; 82746; 82803; 83036; 83540; 83550; 83605; 83615; 83690; 83735; 83880; 84100; 84439; 84443; 84478; 84484; 84550; 85007; 85025; 85610; 85651; 85730; 86140; 86703; 86850; 86870; 86900; 86901; 86904; 86920; 87040; 87070; 87081; 87086; 87181; 87205; 93005; 93306; 94002; 94003; 94150; 94664; 96365; 96368; 96375; 99291; 99292; J3490; J7030; J7620; J8499; U0002